=== PATIENT | female | born 1980 | race American Indian/Alaskan Native ===

== ENCOUNTER 2021-09-22 13:25 | Outpatient (CLI) | payer OTHER, SELFPAY | END 2021-09-22 13:26 | disposition home or self-care (01) | LOC: US 13:27 | PROVIDERS: Visit Provider Pediatrics Neonatal-Perinatal Medicine | DX: O09.522 Supervision of elderly multigravida, second trimester (principal); Z3A.20 20 weeks gestation of pregnancy | CPT/HCPCS: 76811 ==

== ENCOUNTER 2021-11-16 18:00 | Outpatient (CLI) | payer OTHER, SELFPAY ==
[2021-11-18 20:38] LABS: Rapid Plasma Reagin (RPR) Non Reactive (Non Reactive)
== END 2021-11-16 18:01 | disposition home or self-care (01) ==
LOC: NFLDREF 18:01
PROVIDERS: Visit Provider Physician Assistant
DX: Z34.90 Encounter for supervision of normal pregnancy, unspecified, unspecified trimester (principal)
CPT/HCPCS: 86592

== ENCOUNTER 2021-12-17 15:03 | Outpatient (CLI) | payer OTHER, SELFPAY ==
--- OUTSIDE RECORDS SUMMARY | 2021-12-17 15:06 | XMS_ITS | Encounter Summary ---
:1980 Author Organization [facility] Address [address] [facility] [place] [address] Care Team Providers Name Role Phone Bebeto Roth MD Unavailable Astrid Rios PA-C Unavailable Francisco Metz MD Primary Care Provider [phone] Reason for Visit Reason Comments Confirmation Of Encounter Details Date Type Department Care Team Description 01/08/2019 Office Visit [facility] Family Lakisha Nielsen cy test positive (Primary Dx); Medicine Clinic DO Lacy Screening for condition [address] [address] [address] [place], [place] [phone] [address] Social History Tobacco Use Types Packs/Day Years Used Date Smoking Tobacco: Never Smokeless Tobacco: Never Alcohol Use Standard Drinks/Week Comments No 0 (1 standard drink = 0.6 oz pure alcoho l) Sex Assigned at Date Recorded Not on file documented as of this encounter Last Filed Vital Signs Vital Sign Reading Time Taken Comments Blood Pressure 115/79 01/08/2019 1:52 PM BLEACH TESTER Pulse 121 01/08/2019 1:52 PM BLEACH TESTER Temperature 36.2 ??C (97.2 ??F) 01/08/2019 1:52 PM BLEACH TESTER Respiratory Rate 16 01/08/2019 1:52 PM BLEACH TESTER Oxygen Saturation 100% 01/08/2019 1:52 PM BLEACH TESTER Inhaled Oxygen Concentration - - Weight 75.6 kg (166 lb 9.6 oz) 01/08/2019 1:52 PM BLEACH TESTER Height - - Body Mass Index 29.51 04/18/2018 8:42 AM BLEACH TESTER documented in this encounter Patient Instructions Patient Lakisha Gonzalez, - 01/08/2019 1:40 PM BLEACH TESTER Here is the plan from today's visit 1. Screening for condition - HCG Qualitative Urine (UPT) ([facility]) 2. test positive Results by [facility] - CBC with Plt ([facility]) - Hemoglobin A1c ([facility]) - Vit-Fe Fumarate-FA ( MULTIVITAMIN W/IRON) 27-0.8 MG tablet; Take 1 tablet by mouth daily Dispense: 90 tablet; Refill: 3 - ondansetron (ZOFRAN) 4 MG tablet; Take 1-2 tablets (4-8 mg) by mouth every 8 hours as needed for nausea Dispense: 60 tablet; Refill: 3 - US OB <14 WKS SINGLE OR FIRST GESTATION (IN CLINIC); Future Please call or return to clinic if your symptoms don't go away. Follow up plan You'll get a call from our OB coordinator to schedule your first OB visit and ultrasound Thank you for coming to [facility] today. Lab Testing: If you had lab testing today and your results are reassuring or normal they will be mailed to you or sent through [employer] [facility] within 7 days. If the lab tests need quick action we will call you with the results. The phone number we will call with results is # [phone] (home) . If this is not the best numberplease call our clinic and change the number. Medication Refills: If you need any refills please call your pharmacy and they will contact us. If you need to slate picker your refill at a new pharmacy, please contact the new pharmacy directly. The new pharmacy will help you get your medications transferred faster. Scheduling: If you have any concerns about today's visit or wish to schedule another appointment please call ouroffice during normal business hours [phone] (8- 5:00 M-F) If a referral was made to a [facility] and you don't get a call from [facility] please call [phone]. If a Mammogram was ordered for you at [facility] call [phone] to schedule or change yourappointment. If you had an XRay/CT/Ultrasound/MRI ordered the number is [phone] to schedule or change your radiology appointment. Medical Concerns: If you have urgent medical concerns please call [phone] at any time of the day. Cyrus Nielsen DO CH TESTER documented in this encounter Progress Notes Lakisha Nielsen DO - 01/08/2019 1:40 PM CST HPI Azul Garg is a 38 year old who presents for Chief Complaint Patient presents with ??? Confirmation Of - desired. Had a positive home test. Not taking PNV Nonsmoker No EtOH No street drugs Was on minocycline for acne, last dose yesterday. 4w4d by LMP 12/07/18 - [facility]INCENT 09/12/18 No nausea, had severe nausea in previous pregnancies unable to get out of bed. Needed zofran in her last 3 pregnancies. Usually the nausea last swelling to the second trimester, but it is well-managed if she takes 1 Zofran a day. B6 and Unisom have not been helpful for her in prior pregnancies. No vaginal bleeding/spotting. No abdominal pain. Breast tenderness present. Tested borderline GDM in her last by daily glucose testing. Had been unable to tolerate the oral glucose challenge. By changing her diet, her numbers stayed ok and she did not require any medications. Has also had a history of anemia in prior pregnancies. Last delivery was in February 2017. All deliveries have been vaginal, no issues. Her deliverywas induced for premature rupture of membranes. Her last 2 deliveries have been with [facility]. Problem, Medication and Allergy Lists were reviewed and updated if needed.. Patient is an established patient of this clinic.. Review of Systems: Review of Systems Physical Exam: Vitals: 01/08/19 1352 BP: 115/79 Pulse: 121 Resp: 16 Temp: 97.2 ??F (36.2 ??C) TempSrc: Oral SpO2: 100% Weight: 75.6 kg (166 lb 9.6 oz) Body mass index is 29.51 kg/m??. Vitals were reviewed and were normal except tachycardia. Patient had just been moving boxes and running around prior to coming to clinic. Heart rate normalized to 80s while in exam with me. Physical Exam Constitutional: Appearance: Normal appearance. HENT: Head: Normocephalic and atraumatic. Cardiovascular: Rate and Rhythm: Normal rate and regular rhythm. Pulmonary: Effort: Pulmonary effort is normal. No respiratory distress. Neurological: General: No focal deficit present. Mental Status: She is alert and oriented to person, place, and time. Psychiatric: Mood and Affect: Mood normal. Behavior: Behavior normal. Results: Results from this visit Results for orders placed or performed in visit on 01/08/19 HCG Qualitative Urine (UPT) ([facility]) Status: Abnormal Result Value Ref Range HCG Qual Urine POSITIVE (A) Negative Hemoglobin A1c ([facility]) Status: None Result Value Ref Range Hemoglobin A1C 4.8 4.1 - 5.7 % Assessment and Plan Azul is a 38 yo cisgender woman currently at 4w4d by LMP 12/07/18. 1. test positive Will obtain early diabetes screening today with an A1c, and also a CBC to rule out anemia as cause of false negative. Also, counseled patient to start a vitamin, avoid tobacco alcohol and street drugs. Counseled patient to discontinue minocycline for her acne. Prescribed Zofran for when nausea develops. Patient declined Unisom or B6. Counseled to await phone call from our OB coordinator to schedule her first OB visit between 8 to 12 weeks and her dating ultrasound. - Hemoglobin A1c ([facility]) - Vit-Fe Fumarate-FA ( MULTIVITAMIN W/IRON) 27-0.8 MG tablet; Take 1 tablet by mouth daily Dispense: 90 tablet; Refill: 3 - ondansetron (ZOFRAN) 4 MG tablet; Take 1-2 tablets (4-8 mg) by mouth every 8 hours as needed for nausea Dispense: 60 tablet; Refill: 3 - US OB <14 WKS SINGLE OR FIRST GESTATION (IN CLINIC); Future 2. Screening for condition - HCG Qualitative Urine (UPT) ([facility]) - CBC with platelets differential Medications Discontinued During This Encounter Medication Reason ??? minocycline (MINOCIN/DYNACIN) 100 MG capsule ??? senna-docusate (SENOKOT-S;PERICOLACE) 8.6-50 MG per tablet ??? polyethylene glycol (MIRALAX/GLYCOLAX) Packet ??? oxyCODONE IR (ROXICODONE) 10 MG tablet ??? ondansetron (ZOFRAN-ODT) 4 MG ODT tab ??? methocarbamol (ROBAXIN) 500 MG tablet ??? HYDROcodone-acetaminophen (NORCO) 5-325 MG per tablet Options for treatment and follow-up care were reviewed with the patient. Azul Alejo Irma Garg engaged in the decision making process and verbalized understanding of the options discussed and agreed with the final plan. Cyrus Nielsen DO [facility] Scholastic Aptitude Test Grader PGY-2 CH TESTER Katalina Ching MD - 01/08/2019 1:40 PM CST Preceptor Attestation: Patient seen, evaluated and discussed with the resident. I have verified the content of the note, which accurately reflects my assessment of the patient and the plan of care. Supervising Physician: Katalina Ching MD CH TESTER documented in this encounter Plan of Treatment Not on filedocumented as of this encounter Procedures Procedure Name Priority Date/Time Associated Comments Diagnosis HCL CBC WITH Routine 01/08/2019 2:41 PM Screening for Results for this PLATELETS, DIFF BLEACH TESTER condition procedure ar e in the results section. HEMOGLOBIN A1C Routine 01/08/2019 2:34 PM test Resul ts for this ([facility]) BLEACH TESTER positive procedure are i n the results section. HCG QUALITATIVE URINE Routine 01/08/2019 1:59 PM Screening for Results for this ([facility]) BLEACH TESTER condition procedure are i n the results section. documented in this encounter Results (ABNORMAL) CBC with platelets differential (01/08/2019 2:41 PM BLEACH TESTER) [facility] Method Time Signature WBC 8.9 4.0 - 01/08/2019 [facility] 11.0 9:11 PM BLEACH TESTER [facility] 10e9/L [facility] RBC Count 4.64 3.8 - 5.2 01/08/2019 [facility] 10e12/L 9:11 PM [facility] Hemoglobin 10.9 (L) 11.7 - 01/08/2019 [facility] 15.7 g/dL 9:11 PM [facility] Hematocrit 36.2 35.0 - 01/08/2019 [facility] 47.0 % 9:11 PM [facility] MCV 78 78 - 100 01/08/2019 [facility] fl 9:11 PM [facility] MCH 23.5 (L) 26.5 - 01/08/2019 [facility] 33.0 pg 9:11 PM [facility] MCHC 30.1 (L) 31.5 - 01/08/2019 [facility] 36.5 g/dL 9:11 PM [facility] RDW 15.2 (H) 10.0 - 01/08/2019 [facility] 15.0 % 9:11 PM [facility] Platelet Count 359 150 - 450 01/08/2019 [facility] 10e9/L 9:11 PM [facility] Diff Method Automated 01/08/2019 [facility] Method 9:11 PM [facility] % Neutrophils 69.7 % 01/08/2019 [facility] 9:11 PM [facility] % Lymphocytes 18.5 % 01/08/2019 [facility] 9:11 PM [facility] % Monocytes 9.4 % 01/08/2019 [facility] 9:11 PM [facility] % Eosinophils 1.7 % 01/08/2019 [facility] 9:11 PM [facility] % Basophils 0.4 % 01/08/2019 [facility] 9:11 PM [facility] % Immature 0.3 % 01/08/2019 [facility] Granulocytes 9:11 PM [facility] Nucleated RBCs 0 0 /100 01/08/2019 [facility] 9:11 PM [facility] Absolute 6.2 1.6 - 8.3 01/08/2019 [facility] Neutrophil 10e9/L 9:11 PM [facility] Absolute 1.7 0.8 - 5.3 01/08/2019 [facility] Lymphocytes 10e9/L 9:11 PM [facility] Absolute 0.8 0.0 - 1.3 01/08/2019 [facility] Monocytes 10e9/L 9:11 PM BLEACH TESTER [facility] Absolute 0.2 0.0 - 0.7 01/08/2019 [facility] Eosinophils 10e9/L 9:11 PM BLEACH TESTER [facility] Absolute 0.0 0.0 - 0.2 01/08/2019 [facility] Basophils 10e9/L 9:11 PM [facility] Abs Immature 0.0 0 - 0.4 01/08/2019 [facility] Granulocytes 10e9/L 9:11 PM BLEACH TESTER [facility] Absolute 0.0 01/08/2019 [facility] Nucleated RBC 9:11 PM [facility] Specimen Anatomical Collection Method Collection Time Receive d Time (Source) Location / / Volume Laterality Blood specimen VENOUS BLOOD / 01/08/2019 2:41 PM 01/08 5:00 (specimen) Unknown BLEACH TESTER PM BLEACH TESTER Katalina Ching MD LAB - BLOOD ORDERABLES Performing Organization Address City/[facility]/ZIP Code Phon e Number [facility] [address] [place] [address] [facility] Hemoglobin A1c ([facility]) (01/08/2019 2:34 PM BLEACH TESTER) athologist Signature Hemoglobin A1C 4.8 4.1 - 5.7 [facility] Specimen Anatomical Collection Method Collection Time Receive d Time (Source) Location / / Volume Laterality Blood specimen VENOUS BLOOD / 01/08/2019 2:34 PM 01/08 2:35 (specimen) Unknown BLEACH TESTER PM BLEACH TESTER Katalina Ching MD LAB - LABDAQ Performing Organization Address City/[facility]/ZIP Code Phon e Number [facility] [address] [place] [phone] [facility] (ABNORMAL) HCG Qualitative Urine (UPT) ([facility]) (01/08/2019 1:59 PM BLEACH TESTER) [facility] gist Method Time Signature HCG Qual POSITIVE (A) Negative [facility] Urine [facility] LAB[facility] Specimen Anatomical Collection Method Collection Time Receive d Time (Source) Location / / Volume Laterality Urine specimen 01/08/2019 1:59 PM 019 2:00 (specimen) BLEACH TESTER PM BLEACH TESTER Katalina Ching MD LAB - LABDAQ Performing Organization Address City/State/ZIP Code Phon e Number [facility] [address] [place], [place] [address] [facility] documented in this encounter Visit Diagnoses Diagnosis test positive - Primary examination or test, positive result Screening for condition Screening for unspecified condition documented in this encounter Care Teams Supervisor Glycerin Relationship Specialty Start Date End Date Francisco Metz PCP - General Family Practice 11/14/18 04/02/20 MD Stevie Bebeto Roth MD Orthopedics 07/09/14 [facility] [address] [address] Astrid Rios PA-C Physician Edging Supervisor Physician Edging Supervisor - 07/09/14 Surgical documented as of this encounter
--- OUTSIDE RECORDS SUMMARY | 2021-12-17 15:06 | XMS_ITS | Encounter Summary ---
:1980 Author Organization [facility] Address [address] [facility] [place] [address] Care Team Providers Name Role Phone Bebeto Roth MD Unavailable Astrid Rios PA-C Unavailable Francisco Metz MD Primary Care Provider [phone] Reason for Visit Reason Onset Date Comments Call To Schedule Appointment 01/09/2019 NOB appt re quest Encounter Details Date Type Department Care Team Description 01/09/2019 Telephone [facility] [place], Call To Schedule Medicine Clinic KENNY Patterson Appointment (NOB appt [address] [place], request ) [address] [place] [id number] Social History Tobacco Use Types Packs/Day Years Used Date Smoking Tobacco: Never Smokeless Tobacco: Never Alcohol Use Standard Drinks/Week Comments No 0 (1 standard drink = 0.6 oz pure alcoho l) Sex Assigned at Date Recorded Not on file documented as of this encounter Miscellaneous Notes Telephone Encounter - Lisa Ventura - 01/18/2019 3:55 PM CST Inform patient: You will see two providers throughout your care. One of them may be a male,will that be a problem for you? Yes Additional patient comments: female providers only Dating US scheduled: 02/20/19 at 8:40am NOB scheduled 02/20/19 at 9:20am with Dr Nielsen (this will be their primary OB provider). TECHNICAL ARCHITECT Telephone Encounter - Yesenia Flowers RN - 01/09/2019 1:37 PM CST Confirmation of visit: 01/08/19 LMP: 12/07/18 Gestational Age: 4w5d Estimated Date of Delivery: 09/13/19 Dating US has been ordered. Please call patient to schedule US week of 02/04/19 (8 weeks gestation). NOB may be scheduled after US is completed. May be scheduled same day, but US must be completed first. When calling to schedule NOB, please give scheduling preference to the following providers. If ok with male provider, please offer only male provider appointments (unless no availability for >2 weeks) NOBs should NOT be scheduled or rescheduled with Dr Null Male: 1. SMITHA! 2. Isaías Female: 1. Gia 2. Other Notes: Please document call and close encounter. Yesneia Flowers RN TECHNICAL ARCHITECT documented in this encounter Plan of Treatment Not on filedocumented as of this encounter Visit Diagnoses Not on filedocumented in this encounter Care Teams Fingernail Sculpturer Relationship Specialty Start Date End Date Francisco Metz PCP - General Family Practice 11/14/18 04/02/20 MD Stevie Bebeto Roth MD Orthopedics 07/09/14 [facility] [address] [place] [address] Astrid Rios PA-C Physician Call Center Director Physician Call Center Director - 07/09/14 Surgical documented as of this encounter
--- OUTSIDE RECORDS SUMMARY | 2021-12-17 15:06 | XMS_ITS | Encounter Summary ---
:1980 Author Organization [facility] Address [address] [place] [address] Care Team Providers Name Role Phone Bebeto Roth MD Unavailable Astrid Rios PA-C Unavailable Francisco Metz MD Primary Care Provider [phone] Encounter Details Date Type Department Care Team Description 01/08/2019 Travel Social History Tobacco Use Types Packs/Day Years Used Date Smoking Tobacco: Never Smokeless Tobacco: Never Alcohol Use Standard Drinks/Week Comments No 0 (1 standard drink = 0.6 oz pure alcoho l) Sex Assigned at Date Recorded Not on file documented as of this encounter Plan of Treatment Not on filedocumented as of this encounter Visit Diagnoses Not on filedocumented in this encounter Care Teams Physical Education Teacher Relationship Specialty Start Date End Date Francisco Metz PCP - General Family Practice 11/14/18 04/02/20 MD Stevie Bebeto Roth MD Orthopedics 07/09/[address] [place], [place] [id number] Astrid Rios PA-C Physician Chemical Pathologist Physician Chemical Pathologist - 07/09/14 Surgical documented as of this encounter
--- OUTSIDE RECORDS SUMMARY | 2021-12-17 15:06 | XMS_ITS | Encounter Summary ---
:1980 Author Organization [facility] Address [facility] [place] [address] Care Team Providers Name Role Phone Bebeto Roth MD Unavailable Astrid Rios PA-C Unavailable Keri Elias MD Primary Care Provider Unavailable Reason for Visit Diagnostic Imaging XR - Closed Specialty Diagnoses / Procedures Referred By Contact Refer red To Contact Diagnoses Scoliosis Kyphosis (acquired) (postural) Bebeto Roth MD Procedures XR Six Foot Standing Extremities [address] [place], [place] [address] Referral ID Status Reason Start Date Expiration Date Visits Requ ested Visits Authorized [id number] Closed 01/10/2018 01/10/2019 1 1 Encounter Details Date Type Department Care Team Description 01/17/2018 Radiant Appointment [facility] Bebeto Roth Scol iosis; Center Xray MD Devan Kyphosis (acquired) (postural) [address] [facility] [address] [facility] [address] [place] [address] [phone] Social History Tobacco Use Types Packs/Day Years Used Date Smoking Tobacco: Never Smokeless Tobacco: Never Alcohol Use Standard Drinks/Week Comments No 0 (1 standard drink = 0.6 oz pure alcoho l) Sex Assigned at Date Recorded Not on file documented as of this encounter Plan of Treatment Not on filedocumented as of this encounter Procedures Procedure Name Priority Date/Time Associated Comments Diagnosis XR SIX FOOT STANDING Routine 01/17/2018 8:40 AM Lin s Results for this EXTREMITIES NATURAL RESOURCES SPECIALIST Kyphosis (acquired) procedur e are in (postural) the results section. documented in this encounter Results XR Six Foot Standing Extremities (01/17/2018 8:40 AM NATURAL RESOURCES SPECIALIST) Anatomical Region Laterality Modality Lower Extremity Computed Radiography Specimen (Source) Anatomical Location Collection Method / Collectio n Time Received Time / Laterality Volume Impressions 01/17/2018 2:07 PM NATURAL RESOURCES SPECIALIST Impression: 1. Fusion instrumentation from T4 throug h L3 without evidence of hardware complication. 2. Mild convex right curvature of the th oracolumbar/lumbar spine with apex at T12. 3. No substantial global coronal imbalan ce. 4. Normal sagittal vertical axis. MADALYN ZARAGOZA MD Narrative 01/17/2018 2:07 PM NATURAL RESOURCES SPECIALIST Exam: XR SPINE COMPLETE SCOLIOSIS 2 VW, XR SIX FOOT STANDING EXTREMITIES, 01/17/2018 8:41 AM Indication: ; Scoliosis; Kyphosis (acqui red) (postural) Techniques: AP and lateral EOS composite images of full body images were submitted for interpretation. Comparison: 12/13/2017 Findings: 12 rib bearing vertebral bodies and 5 nina mbar type vertebral bodies are identified. Posterior fusion instrumentation extends from T4 through L3. No evidence of hardware complication. Coronal Deformity: There is a mild ??convexed right curvatu re of the thoracolumbar/lumbar spine with apex at T12. No substantial global coronal imbalance. Sagittal Vertical [place] (A vertical line drawn from the center of C7 (dragan line) to the posterosuperior aspe ct of the S1 on sagittal plane): ??less than 4 cm Weight bearing axis: (Defined as a line drawn from the center of the femoral head to the mid aspect of the ti bial plafond). ?Right: Weight bearing axis crosses through the medial tibial spine. ? Left: Weight bearing axis crosses between tibial spines. Leg length: ??(Measured from the top of the femoral head to the center of tibial plafond. ??It is assumed joint s are in similar degrees of extension bilaterally. ??Significant dif ference is defined when discrepancy is greater than 1.5 cm). ?No significant ??leg length dis crepancy. Additional Findings: No acute osseous abnormality. ??There is a nonobstructive bowel gas pattern. Procedure Note Madalyn Zaragoza MD - 01/17/2018Format ting of this note might be different from the original. Exam: XR SPINE COMPLETE SCOLIOSIS 2 VW, XR SIX FOOT STANDING EXTREMITIES, 01/17/2018 8:41 AM Indication: ; Scoliosis; Kyphosis (acqui red) (postural) Techniques: AP and lateral EOS composite images of full body images were submitted for interpretation. Comparison: 12/13/2017 Findings: 12 rib bearing vertebral bodies and 5 nina mbar type vertebral bodies are identified. Posterior fusion instrumentation extends from T4 through L3. No evidence of hardware complication. Coronal Deformity: There is a mild convexed right curvature of the thoracolumbar/lumbar spine with apex at T12. No substantial global coronal imbalance. Sagittal Vertical [place] (A vertical line drawn from the center of C7 (dragan line) to the posterosuperior aspe ct of the S1 on sagittal plane): less than 4 cm Weight bearing axis: (Defined as a line drawn from the center of the femoral head to the mid aspect of the ti bial plafond). Right: Weight bearing axis crosses thro ugh the medial tibial spine. Left: Weight bearing axis crosses betwe en tibial spines. Leg length: (Measured from the top of th e femoral head to the center of tibial plafond. It is assumed joints are in similar degrees of extension bilaterally. Significant diffe rence is defined when discrepancy is greater than 1.5 cm). No significant leg length discrepancy. Additional Findings: No acute osseous abnormality. There is a nonobstructive bowel gas pattern. Impression: 1. Fusion instrumentation from T4 throug h L3 without evidence of hardware complication. 2. Mild convex right curvature of the th oracolumbar/lumbar spine with apex at T12. 3. No substantial global coronal imbalan ce. 4. Normal sagittal vertical axis. MADALYN ZARAGOZA MD Bebeto Roht MD IMG DIAGNOSTIC IMAGING ORDER TAYLOR documented in this encounter Visit Diagnoses Diagnosis Scoliosis Scoliosis (and kyphoscoliosis), idiopath ic Kyphosis (acquired) (postural) documented in this encounter Care Teams Guidance Adviser Relationship Specialty Start Date End Date Keri Elias PCP - General Family Practice 03/12/15 9 MD Ira Glez David Wayne, MD Orthopedics 5/27/[address] [place] [address] Astrid Rios PA-C Physician Hand Alterations Seamstress Physician Hand Alterations Seamstress - 07/09/14 Surgical documented as of this encounter
--- OUTSIDE RECORDS SUMMARY | 2021-12-17 15:06 | XMS_ITS | Encounter Summary ---
:1980 Author Organization [place] Address [address] [facility] [address] Care Team Providers Name Role Phone Bebeto Roth MD Unavailable Astrid Rios PA-C Unavailable Francisco Metz MD Primary Care Provider [phone] Francisco Metz MD Unavailable [phone] Reason for Visit Reason Onset Date Comments Referral 10/03/2019 [facility] Encounter Details Date Type Department Care Team Description 10/03/2019 Telephone [facility] Francisco Metz Referral ( [facility] MD [facility]) [address], [address] [place] [address] [phone] (Wo rk) Social History Tobacco Use Types Packs/Day Years Used Date Smoking Tobacco: Never Smokeless Tobacco: Never Alcohol Use Standard Drinks/Week Comments No 0 (1 standard drink = 0.6 oz pure alcoho l) Sex Assigned at Date Recorded Not on file documented as of this encounter Miscellaneous Notes Telephone Encounter - Marli Gonzales - 10/09/2019 3:20 PM CDT 3:20p.m Marium returned my call. Stated that we as patient PCC would need to ok authorization, reference # [id number]. This authorization that was entered on 09/19/19 by Kaylynn Hoffman has been timed out. Last edited on 10/04/19. I attempted to create a new referral and was informed that I do not have security to create a referral for this member. [place] is not listed with [facility] as patient PCC. Contacted Marium to inform her that patient PCC will need to enter referral/auth online with [facility]. Marli oGnzales Respooler Telephone Encounter - Marli Gonzales - 10/09/2019 9:56 AM CDT 10/07/19 Attempted to reach Marium at [place], Left message on voicemail. 10/09/19 Left message on Marium voicemail. Marli Gonzales Respooler Telephone Encounter - Lisa Ventura - 10/03/2019 10:44 AM CDT [facility] Family Medicine phone call message - order or referral request from patient: Order or referral being requested: Referral to: [facility] Location: [place], [place] Additional Details: Marium calling from [facility] and [facility] to advise that [facility] denied their claim for patient's visit with them on 08/14/19. Marium advised that per [facility], an authorization request was sent to [facility] (by [facility]) authorizing the patient to receive care in [place]. Authorization request # [id number]. Referral only -Specialty see above Location see above OK to leave a message on voice mail? Yes Primary language: Belarusian Scale Shooter needed? No Call taken on October 03, 2019 at 10:45 AM by Lisa Ventura Order request route to [facility] Referrals Route to [facility] ([facility]) [facility]PERATOR [facility] documented in this encounter Plan of Treatment Not on filedocumented as of this encounter Visit Diagnoses Not on filedocumented in this encounter Care Teams Counter Supply Worker Relationship Specialty Start Date End Date Francisco Metz PCP - General Family Practice 11/14/18 04/02/20 MD Stevie Bebeto Roth MD Orthopedics 07/09/[address] [place] [address] Astrid Rios PA-C Physician Sales And In Home Delivery Specialist Physician Sales And In Home Delivery Specialist - 07/09/14 Surgical Francisco Metz Assigned PCP 07/04/19 02/01/20 MD Stevie [address] [place] [address] documented as of this encounter
--- OUTSIDE RECORDS SUMMARY | 2021-12-17 15:06 | XMS_ITS | Encounter Summary ---
:1980 Author Organization [place] Address [address] [facility] [place] [address] Care Team Providers Name Role Phone Bebeto Roth MD Unavailable Astrid Rios PA-C Unavailable Francisco Metz MD Primary Care Provider Encounter Details Date Type Department Care Team Description 11/14/2018 Travel Social History Tobacco Use Types Packs/Day [...] on filedocumented in this encounter Care Teams Night Shift Relationship Specialty Start Date End Date Francisco Metz PCP - General Family Practice 11/14/18 04/02/20 MD Stevie Bebeto Roth MD Orthopedics 07/09/[address] [place], [place] [address] Astrid Rios PA-C Physician Radiation / Chemistry Technician Physician Radiation / Chemistry Technician - 07/09/14 Surgical documented as of this encounter
--- OUTSIDE RECORDS SUMMARY | 2021-12-17 15:06 | XMS_ITS | Encounter Summary ---
:1980 Author Organization [place] Address [facility] [place] [address] Care Team Providers Name Role Phone Bebeto Roth MD Unavailable Astrid Rios PA-C Unavailable Keri Elias MD Primary Care Provider Unavailable Reason for Visit Reason Comments RECHECK DOS 10/23/17 extrention of jf mcintosh, follow up scoliosis Encounter Details Date Type Department Care Team Description 04/18/2018 Office Visit [facility] Orthopaedic Bebeto Roth [facility] ent idiopathic scoliosis of thoracolumbar region (Primary Dx); Clinic MD Devan History of spinal fusion [address] [place] [address] [address] [place] [address] [phone] Social History Tobacco Use Types Packs/Day Years Used Date Smoking Tobacco: Never Smokeless Tobacco: Never Alcohol Use Standard Drinks/Week Comments No 0 (1 standard drink = 0.6 oz pure alcoho l) Sex Assigned at Date Recorded Not on file documented as of this encounter Last Filed Vital Signs Vital Sign Reading Time Taken Comments Blood Pressure - - Pulse - - Temperature - - Respiratory Rate - - Oxygen Saturation - - Inhaled Oxygen Concentration - - Weight 68.9 kg (152 lb) 04/18/2018 8:42 AM KOSHER DIETARY SERVICE SUPERVISOR Height 160 cm (5' 3) 04/18/2018 8:42 AM KOSHER DIETARY SERVICE SUPERVISOR Body Mass Index 26.93 04/18/2018 8:42 AM KOSHER DIETARY SERVICE SUPERVISOR documented in this encounter Progress Notes Bebeto Roth MD - 04/18/2018 8:45 AM CST [facility] Orthopedics Bebeto Roth MD 04/18/2018 Name: Azul Garg Age: [age] year old : 1980 Referring provider: Referred Self Chief Complaint: RECHECK (DOS 10/23/17 extrention of fusion, follow up scoliosis ) Date of Surgery: 10/23/2017 Procedure:?? 1. Posterior spinal fusion thoracic 4 to thoracic 10 2. Segmental spinal instrumentation T4-T9 3. Reinsertion spinal instrumentation T10 4. Rivera-Khan osteotomies T6-7 through T9-10 5. Image guided surgery History of Present Illness: Azul Garg is a 37 year old female 6 months status-post the above mentioned procedures whopresents for postoperative evaluation following correction of proximal junctional kyphosis. At the patient's last evaluation with me on 01/17/18, she was still taking Vicodin and muscle relaxer as needed for her 2/10 pain. Plan was for continued weaning off her narcotic medications. Today, the patient returns for 6 month recheck and films. Overall she has been doing quite well and minimal pain. She still has some intrascapular numbness along her incision. She does have some tenderness and pain at the cephalad most aspect of her instrumentation at her trapezius muscles and at the base of her neck. She also notes some occasional clicking in her back but this is without pain. She is otherwise pleased with her progression just wants reassurance that her x-rays are unchanged. She also has questions regarding the potential of becoming in the near future and if that would affect her recovery in any way Oswestry (KYLEE) Questionnaire OSWESTRY DISABILITY INDEX 04/17/2018 Count 10 Sum 6 Oswestry Score (%) 12 Some recent data might be hidden Visual Analog Pain Scale Back Pain Scale 0-10: 1.5 Right leg pain: 0 Left leg pain: 0 PROMIS-10 Scores Global Mental Health Score: (P) 15 Global Physical Health Score: (P) 13 PROMIS TOTAL - SUBSCORES: (P) 28 Physical Examination: Ht 1.6 m (5' 3) Wt 68.9 kg (152 lb) BMI 26.93 kg/m?? Focused examination of the patient's spine demonstrates incision at midline that is well-healed and intact without any overlying skin changes. There is no tenderness to palpation along spinous processes. There is notable on numbness to light touch between the scapula a at the thoracic spine. She has some tenderness to palpation particularly at the left trapezius just cephalad to where her instrumentation ends. Sensorimotor examination of her bilateral lower extremities otherwise intact and benign from L2-S1 nerve distributions without any asymmetry or appreciated deficit Radiographs: XR Six Foot Standing Extremities 04/18/18: XR Spine Complete Scoliosis 2 views 04/18/18: When compared to prior x-rays from last visit and immediately postoperatively hardware remains stable and intact without any signs of loosening or shift. Overall spinal alignment is also consistent with prior imaging Assessment: 37 year old female with lumbar fusion now 6 months status post extension of the thoracic spine for proximal junctional kyphosis in 10/23/2017. Doing well Plan: -RTC 6 months (1 year post op) -OK for as she wishes; if , then will return following the when she is able to have radiation/XR -RTC with EOS full spine upright XR -Recommend massage therapy or scapulothoracic PT to aid in muscle strengthening and relief of pain Seen and discussed with Dr. Ira Sinclair MD 04/18/2018 Orthopaedic Surgery Resident, PGY-4 Pager: I saw and evaluated the patient and developed the plan. Bebeto Roth MD ER DIETARY SERVICE SUPERVISOR documented in this encounter Nursing Notes Quincy Rosas, DODIE - 04/18/2018 8:45 AM CST Reason For Visit: Chief Complaint Patient presents with ??? RECHECK DOS 10/23/17 extrention of fusion, follow up scoliosis Primary MD: Keri Elias MD: self [place] Chalker? No Date of surgery: 10/23/17 Type of surgery: Dr. Roth Smoker: No Request smoking cessation information: No Ht 1.6 m (5' 3) Wt 68.9 kg (152 lb) BMI 26.93 kg/m?? Pain Assessment Patient Currently in Pain: Yes 0-10 Pain Scale: 2 Oswestry (KYLEE) Questionnaire OSWESTRY DISABILITY INDEX 04/17/2018 Count 10 Sum 6 Oswestry Score (%) 12 Some recent data might be hidden Neck Disability Index (NDI) Questionnaire No flowsheet data found. Visual Analog Pain Scale Back Pain Scale 0-10: 1.5 Right leg pain: 0 Left leg pain: 0 Promis 10 Assessment PROMIS 10 04/17/2018 In general, would you say your health is: Fair In general, would you say your quality of life is: Good In general, how would you rate your physical health? Fair In general, how would you rate your mental health, including your mood and your ability to think? Good In general, how would you rate your satisfaction with your social activities and relationships? Verygood In general, please rate how well you carry out your usual social activities and roles Fair To what extent are you able to carry out your everyday physical activities such as walking, climbingstairs, carrying groceries, or moving a chair? Mostly How often have you been bothered by emotional problems such as feeling anxious, depressed or irritable? Never How would you rate your fatigue on average? Mild How would you rate your pain on average? 0 = No Pain to 10 = Worst Imaginable Pain 4 In general, would you say your health is: 2 In general, would you say your quality of life is: 3 In general, how would you rate your physical health? 2 In general, how would you rate your mental health, including your mood and your ability to think? 3 In general, how would you rate your satisfaction with your social activities and relationships? 4 In general, please rate how well you carry out your usual social activities and roles. (This includes activities at home, at work and in your community, and responsibilities as a parent, child, spouse,employee, friend, etc.) 2 To what extent are you able to carry out your everyday physical activities such as walking, climbingstairs, carrying groceries, or moving a chair? 4 In the past 7 days, how often have you been bothered by emotional problems such as feeling anxious, depressed, or irritable? 1 In the past 7 days, how would you rate your fatigue on average? 2 In the past 7 days, how would you rate your pain on average, where 0 means no pain, and 10 means worst imaginable pain? 4 Global Mental Health Score 15 Global Physical Health Score 13 PROMIS TOTAL - SUBSCORES 28 Some recent data might be hidden Quincy Rosas ATC ER DIETARY SERVICE SUPERVISOR documented in this encounter Plan of Treatment Not on filedocumented as of this encounter Visit Diagnoses Diagnosis Adolescent idiopathic scoliosis of thora columbar region - Primary Scoliosis (and kyphoscoliosis), idiopath ic History of spinal fusion Arthrodesis status documented in this encounter Care Teams Pharmacy Services Representative Relationship Specialty Start Date End Date Keri Elias PCP - General Family Practice 03/12/15 9 MD Ira Glez David [place], MD Orthopedics 07/09/[address] [place], [place] [id number] [place] [address] Astrid Rios PA-C Physician Dipper And Baker Physician Dipper And Baker - 07/09/14 Surgical documented as of this encounter
--- OUTSIDE RECORDS SUMMARY | 2021-12-17 15:06 | XMS_ITS | Encounter Summary ---
:1980 Author Organization [place] Address [address] [facility] [address] Care Team Providers Name Role Phone Bebeto Roth MD Unavailable Astrid Rios PA-C Unavailable Keri Elias MD Primary Care Provider Unavailable Reason for Visit Diagnostic Imaging XR - Closed Specialty Diagnoses / Procedures Referred By Contact Refer red To Contact Diagnoses S/P spinal fusion Bebeto Roth MD Procedures XR Spine Complete 2 Views [address] [place], [place] [address] Referral ID Status Reason Start Date Expiration Date Visits Requ ested Visits Authorized [id number] Closed 11/06/2017 11/06/2018 1 1 Encounter Details Date Type Department Care Team Description 12/13/2017 Radiant Appointment [facility] Imaging Bebeto Roth S/P spinal fusion Center Una Hartman MD [address] [facility] [address] [place] [address] [phone] Social History Tobacco Use Types Packs/Day Years Used Date Smoking Tobacco: Never Smokeless Tobacco: Never Alcohol Use Standard Drinks/Week Comments No 0 (1 standard drink = 0.6 oz pure alcoho l) Sex Assigned at Date Recorded Not on file documented as of this encounter Plan of Treatment Not on filedocumented as of this encounter Procedures Procedure Name Priority Date/Time Associated Diagnosis Comme nts XR SPINE COMPLETE Routine 12/13/2017 2:34 PM S/P spinal fusion Results for this SCOLIOSIS 2 VIEWS CDT procedure are in the results section. documented in this encounter Results XR Spine Complete 2 Views (12/13/2017 2:34 PM CDT) Anatomical Region Laterality Modality Spine Computed Radiography Specimen (Source) Anatomical Location Collection Method / Collectio n Time Received Time / Laterality Volume Impressions 12/13/2017 5:05 PM CDT Impression: 1. No acute osseous abnormality. 2. Fusion instrumentation from T4 throug h L3 without evidence of hardware complication. 3. Mild convex right curvature of the th oracolumbar/lumbar spine with apex at T11. 4. No substantial global coronal or sagi ttal imbalance. MADALYN ZARAGOZA MD Narrative 12/13/2017 5:05 PM CDT Exam: XR SIX FOOT STANDING EXTREMITIES, XR SPINE COMPLETE SCOLIOSIS 2 VW, 12/13/2017 2:34 PM Indication: ; S/P spinal fusion Techniques: AP and lateral EOS composite images of full body images were submitted for interpretation. Comparison: 10/28/2007, 06/29/2017 Findings: 12 rib bearing vertebral bodies and 5 nina mbar type vertebral bodies are identified. Posterior fusion instrumentation extendi ng from T4 through L3. No evidence of hardware complication. Coronal Deformity: There is a mild ??convexed right curvatu re of the thoracolumbar/lumbar spine with apex at T11. No substantial global coronal imbalance. Sagittal Vertical [place] (A vertical line drawn from the center of C7 (dragan line) to the posterosuperior aspe ct of the S1 on sagittal plane): ??less than 4 cm Weight bearing axis: (Defined as a line drawn from the center of the femoral head to the mid aspect of the ti bial plafond). ?Right: Weight bearing axis crosses between tibial spines. ? Left: Weight bearing axis crosses between tibial spines. Leg length: ??(Measured from the top of the femoral head to the center of tibial plafond. ??It is assumed joint s are in similar degrees of extension bilaterally. ??Significant dif ference is defined when discrepancy is greater than 1.5 cm). ?No significant ??leg length dis crepancy. Additional Findings: No acute osseous abnormality. Unchanged elevation of left hemidiaphragm. There is a nonobstructive bowel gas pattern. Procedure Note Jus, Madalyn J, MD - 12/13/2017Format ting of this note might be different from the original. Exam: XR SIX FOOT STANDING EXTREMITIES, XR SPINE COMPLETE SCOLIOSIS 2 VW, 12/13/2017 2:34 PM Indication: ; S/P spinal fusion Techniques: AP and lateral EOS composite images of full body images were submitted for interpretation. Comparison: 10/28/2007, 06/29/2017 Findings: 12 rib bearing vertebral bodies and 5 nina mbar type vertebral bodies are identified. Posterior fusion instrumentation extendi ng from T4 through L3. No evidence of hardware complication. Coronal Deformity: There is a mild convexed right curvature of the thoracolumbar/lumbar spine with apex at T11. No substantial global coronal imbalance. Sagittal Vertical [place] (A vertical line drawn from the center of C7 (dragan line) to the posterosuperior aspe ct of the S1 on sagittal plane): less than 4 cm Weight bearing axis: (Defined as a line drawn from the center of the femoral head to the mid aspect of the ti bial plafond). Right: Weight bearing axis crosses betw een tibial spines. Left: Weight bearing axis crosses betwe en tibial spines. Leg length: (Measured from the top of th e femoral head to the center of tibial plafond. It is assumed joints are in similar degrees of extension bilaterally. Significant diffe rence is defined when discrepancy is greater than 1.5 cm). No significant leg length discrepancy. Additional Findings: No acute osseous abnormality. Unchanged elevation of left hemidiaphragm. There is a nonobstructive bowel gas pattern. Impression: 1. No acute osseous abnormality. 2. Fusion instrumentation from T4 throug h L3 without evidence of hardware complication. 3. Mild convex right curvature of the th oracolumbar/lumbar spine with apex at T11. 4. No substantial global coronal or sagi ttal imbalance. MADALYN ZARAGOZA MD Bebeto Roth MD IMG DIAGNOSTIC IMAGING ORDER TAYLOR documented in this encounter Visit Diagnoses Diagnosis S/P spinal fusion Arthrodesis status documented in this encounter Care Teams Strategy Execution Consultant Relationship Specialty Start Date End Date Keri Elias PCP - General Family Practice 03/12/15 9 MD Ira Glez David [place], MD Orthopedics 07/09/14 [address] [place] [address] Astrid Rios PA-C Physician Winder Helper Physician Winder Helper - 07/09/14 Surgical documented as of this encounter
--- OUTSIDE RECORDS SUMMARY | 2021-12-17 15:06 | XMS_ITS | Encounter Summary ---
:1980 Author Organization [place] Address [address] [facility] [place] [address] Care Team Providers Name Role Phone Bebeto Roth MD Unavailable Astrid Rios PA-C Unavailable Keri Elias MD Primary Care Provider Unavailable Reason for Visit Diagnostic Imaging XR - Closed Specialty Diagnoses / Procedures Referred By Contact Refer red To Contact Diagnoses S/P spinal fusion Bebeto Roth MD Procedures XR Six Foot Standing Extremities [address] [place], [place] [address] Referral ID Status Reason Start Date Expiration Date Visits Requ ested Visits Authorized [id number] Closed 11/06/2017 11/06/2018 1 1 Encounter Details Date Type Department Care Team Description 12/13/2017 Radiant Appointment [facility] Imaging Bebeto Roth S/P spinal fusion Center Una Hartman MD 9 [facility] [address] [place] [address] [phone] Social History Tobacco Use Types Packs/Day Years [...] Comments Diagnosis XR SIX FOOT STANDING Routine 12/13/2017 2:34 PM S/P spinal fus ion Results for this EXTREMITIES CDT procedure are i n the results section. documented in this encounter Results XR Six Foot Standing Extremities (12/13/2017 2:34 PM CDT) Anatomical Region Laterality Modality Lower Extremity Computed [...] No substantial global coronal imbalance. Sagittal Vertical [place] (A vertical line drawn from the center [...] a nonobstructive bowel gas pattern. Procedure Note Butler, Madalyn J, MD - 12/13/2017Format ting of [...] No substantial global coronal imbalance. Sagittal Vertical [place] (A vertical line drawn from the center [...] status documented in this encounter Care Teams Search Specialist Relationship Specialty Start Date End Date Keri Elias PCP - General Family Practice 03/12/15 9 MD Ira Glez David [place], MD Orthopedics 07/09/14 [address] [place] [address] Astrid Rios PA-C Physician Sheetmetal Trades Worker Physician Sheetmetal Trades Worker - 07/09/14 Surgical documented as of this encounter
--- OUTSIDE RECORDS SUMMARY | 2021-12-17 15:06 | XMS_ITS | Encounter Summary ---
:1980 Author Organization [place] Address [address] [facility] [place] [address] Care Team Providers Name Role Phone Bebeto Roth MD Unavailable Astrid Rios PA-C Unavailable Kenton Katz MD Unavailable Unavailable Karen Veliz DO Primary Care Provider Encounter Details Date Type Department Care Team Description 07/11/2020 Records - [facility] CONVERSION Provider, Histor ical Social History Tobacco Use Types Packs/Day Years Used Date Smoking Tobacco: Never Smokeless Tobacco: Never Alcohol Use Standard Drinks/Week Comments No 0 (1 standard drink = 0.6 oz pure alcoho l) Sex Assigned at Date Recorded Not on file documented as of this encounter Plan of Treatment Not on filedocumented as of this encounter Procedures Procedure Name Priority Date/Time Associated Diagnosis Comme nts US OB > 14 WEEKS Routine 09/19/2004 12:00 AM Resu lts for this CDT procedure are i n the results section. documented in this encounter Results US OB > 14 Weeks (09/19/2004 12:00 AM CDT) Anatomical Region Laterality Modality Abdomen/Pelvis Other Specimen (Source) Anatomical Location Collection Method / Collectio n Time Received Time / Laterality Volume Narrative 09/19/2004 12:00 AM CDT See Historical Hospital Medical Record f or documentation Procedure Note Provider, Historical - 07/11/2020Formatt ing of this note might be different from the original. See Historical Hospital Medical Record f or documentation Historical Provider IMG US ORDERABLES documented in this encounter Visit Diagnoses Not on filedocumented in this encounter Care Teams Dado Operator Relationship Specialty Start Date End Date Karen Veliz DO PCP - General Family Medicine 04/03/[address] [place] [address] Bebeto Roth MD Orthopedics 07/09/[address] [place] [address] Astrid Rios PA-C Physician Merchandise Supervisor Physician Merchandise Supervisor - 07/09/14 Surgical Kenton Katz Assigned PCP 02/02/20 08/27/20 MD Feliberto NO INFO AVAILABLE documented as of this encounter
--- OUTSIDE RECORDS SUMMARY | 2021-12-17 15:06 | XMS_ITS | Encounter Summary ---
:1980 Author Organization [place] Address [address] [facility] [place] [address] Care Team Providers Name Role Phone Bebeto Roth MD Unavailable Astrid Rios PA-C Unavailable Francisco Metz MD Primary Care Provider Encounter Details Date Type Department Care Team Description 02/18/2019 Travel Social History Tobacco Use Types Packs/Day [...] on filedocumented in this encounter Care Teams Signal Mechanic Relationship Specialty Start Date End Date Francisco Metz PCP - General Family Practice 11/14/18 04/02/20 MD Stevie Bebeto Roth MD Orthopedics 07/09/[address] [place], [place] [address] Astrid Rios PA-C Physician Review Assistant Physician Review Assistant - 07/09/14 Surgical documented as of this encounter
--- OUTSIDE RECORDS SUMMARY | 2021-12-17 15:06 | XMS_ITS | Encounter Summary ---
:1980 Author Organization [place] Address [address] [facility] [place] [address] Care Team Providers Name Role Phone Bebeto Roth MD Unavailable Astrid Rios PA-C Unavailable Kenton Katz MD Unavailable Unavailable Karen Veliz DO Primary Care Provider Encounter Details Date Type Department Care Team Description 07/11/2020 Records - [facility] CONVERSION Provider, Histor ical Social History Tobacco [...] Priority Date/Time Associated Diagnosis Comme nts XR CHEST 2 VIEWS Routine 08/28/2005 12:00 AM Resu lts for this CDT procedure are i n the results section. documented in this encounter Results XR Chest 2 Views (08/28/2005 12:00 AM CDT) Anatomical Region Laterality Modality Chest Digital Radiography Specimen (Source) Anatomical Location Collection Method / Collectio n Time Received Time / Laterality Volume Narrative 08/28/2005 12:00 AM CDT See Historical Hospital Medical Record f or documentation Procedure Note Provider, Historical - 07/11/2020Formatt ing of this note might be different from the original. See Historical Hospital Medical Record f or documentation Historical Provider IMG DIAGNOSTIC IMAGING ORDER TAYLOR documented in this encounter Visit Diagnoses Not on filedocumented in this encounter Care Teams Lung Puller Relationship Specialty Start Date End Date Karen Veliz DO PCP - General Family Medicine 04/03/[address] [place] [address] Bebeto Roth MD Orthopedics 07/09/[address] [place] [address] Astrid Rios PA-C Physician Manager Of Security Physician Manager Of Security - 07/09/14 Surgical Kenton Katz Assigned PCP 02/02/20 08/27/20 MD Feliberto NO INFO AVAILABLE documented as of this encounter
--- OUTSIDE RECORDS SUMMARY | 2021-12-17 15:06 | XMS_ITS | Encounter Summary ---
:1980 Author Organization [place] Address [address] [facility] [place] [address] Care Team Providers Name Role Phone Bebeto Roth MD Unavailable Astrid Rios PA-C Unavailable Keri Elias MD Primary Care Provider Unavailable Reason for Visit Diagnostic Imaging XR - Closed Specialty Diagnoses / Procedures Referred By Contact Refer red To Contact Diagnoses Scoliosis Bebeto Roth MD Procedures XR Spine Complete Scoliosis 2 Views [address] [place], [place] [address] Referral ID Status Reason Start Date Expiration Date Visits Requ ested Visits Authorized [id number] Closed 04/17/2018 04/17/2019 1 1 Encounter Details Date Type Department Care Team Description 04/18/2018 Ancillary Procedure [facility] Chan Roth MD [facility] [address] [place] [id number] Social History Tobacco Use Types Packs/Day Years [...] Diagnosis Comme nts XR SPINE COMPLETE Routine 04/18/2018 9:23 AM Scoliosis Resu lts for this SCOLIOSIS 2 VIEWS MARKETING CAMPAIGN ANALYST procedure are in the results section. documented in this encounter Results XR Spine Complete Scoliosis 2 Views (04/18/2018 9:23 AM MARKETING CAMPAIGN ANALYST) Anatomical Region Laterality Modality Spine Computed Radiography Specimen (Source) Anatomical Location Collection Method / Collectio n Time Received Time / Laterality Volume Impressions 04/18/2018 3:19 PM MARKETING CAMPAIGN ANALYST Impression: 1. Fusion hardware from T4 through L3 wi thout evidence of hardware complication. 2. Mild convex right curvature of the th oracolumbar/lumbar spine with apex at T12. 3. No substantial global coronal imbalan ce. 4. Normal sagittal vertical axis. MADALYN ZARAGOZA MD Narrative 04/18/2018 3:19 PM MARKETING CAMPAIGN ANALYST Exam: XR SIX FOOT STANDING EXTREMITIES, XR SPINE COMPLETE SCOLIOSIS 2 VW, 04/18/2018 9:23 AM Indication: Scoliosis Techniques: AP and lateral EOS composite images of full body images were submitted for interpretation. Comparison: 01/17/2018 Findings: 12 rib bearing vertebral bodies and 5 nina mbar type vertebral bodies are identified. Posterior fusion instrumentation extends from T4 through L3. No evidence of hardware complication. Nonspecific straightening of the normal cervical lordosis. No evidence of substantial degenerative change in th e unfused cervical or lumbar spine. Coronal Deformity: There is a mild ??convexed right curvatu re of the thoracolumbar/lumbar spine with apex at T12. No substantial global coronal imbalance. Sagittal Vertical Austin (A vertical line drawn from the center [...] spine. ? Left: Weight bearing axis crosses through the lateral tibial spine. Leg length: ??(Measured from the top of [...] pattern. Procedure Note Madalyn Zaragoza MD - 04/18/2018Format ting of this note might be different from the original. Exam: XR SIX FOOT STANDING EXTREMITIES, XR SPINE COMPLETE SCOLIOSIS 2 VW, 04/18/2018 9:23 AM Indication: Scoliosis Techniques: AP and lateral EOS composite images of full body images were submitted for interpretation. Comparison: 01/17/2018 Findings: 12 rib bearing vertebral bodies and 5 nina mbar type vertebral bodies are identified. Posterior fusion instrumentation extends from T4 through L3. No evidence of hardware complication. Nonspecific straightening of the normal cervical lordosis. No evidence of substantial degenerative change in th e unfused cervical or lumbar spine. Coronal Deformity: There is a mild convexed right curvature of the thoracolumbar/lumbar spine with apex at T12. No substantial global coronal imbalance. Sagittal Vertical Austin (A vertical line drawn from the center [...] tibial spine. Left: Weight bearing axis crosses throu gh the lateral tibial spine. Leg length: (Measured from the top of th e femoral head to the center of tibial plafond. It is assumed joints are in similar degrees of extension bilaterally. Significant diffe rence is defined when discrepancy is greater than 1.5 cm). No significant leg length discrepancy. Additional Findings: No acute osseous abnormality. There is a nonobstructive bowel gas pattern. Impression: 1. Fusion hardware from T4 through L3 wi thout evidence of hardware complication. 2. Mild convex right curvature of the th oracolumbar/lumbar spine with apex at T12. 3. No substantial global coronal imbalan ce. 4. Normal sagittal vertical axis. MADALYN ZARAGOZA MD Bebeto Roth MD IMG DIAGNOSTIC IMAGING ORDER TYALOR documented in this encounter Visit Diagnoses Not on filedocumented in this encounter Care Teams Litigation Secretary Relationship Specialty Start Date End Date Keri Elias PCP - General Family Practice 03/12/15 9 MD Ira Glez David Wayne, MD Orthopedics 07/09/14 [facility] [place] [address] Astrid Rios PA-C Physician Boat Rigger Physician Boat Rigger - 07/09/14 Surgical documented as of this encounter
--- OUTSIDE RECORDS SUMMARY | 2021-12-17 15:06 | XMS_ITS | Encounter Summary ---
:1980 Author Organization [place] Address [address] [place] [address]. [place] [address] Care Team Providers Name Role Phone Bebeto Roth MD Unavailable Astrid Rios PA-C Unavailable Francisco Metz MD Primary Care Provider [phone] Francisco Metz MD Unavailable [phone] Encounter Details Date Type Department Care Team Description 01/15/[address] [facility] Scan, ENDOCRINOLOGY Health Info Mgmt Non-Provider REFERRAL NO [facility] AND [address] [address] Social History Tobacco Use Types Packs/Day Years [...] on filedocumented in this encounter Care Teams Parts Sales Associate Relationship Specialty Start Date End Date Francisco Metz PCP - General Family Practice 11/14/18 04/02/20 MD Stevie Bebeto Roth MD Orthopedics 07/09/[address] [place], [place] [address] Astrid Rios PA-C Physician Grain Oilseed Or Pasture Grower Physician Grain Oilseed Or Pasture Grower - 07/09/14 Surgical Francisco Metz Assigned PCP 07/04/19 02/01/20 MD Stevie [address] [place] [address] documented as of this encounter
--- OUTSIDE RECORDS SUMMARY | 2021-12-17 15:06 | XMS_ITS | Encounter Summary ---
:1980 Author Organization [place] Address [address] [facility] [place] [address] Care Team Providers Name Role Phone Bebeto Roth MD Unavailable Astrid Rios PA-C Unavailable Kenton Katz MD Unavailable Unavailable Karen Veliz DO Primary Care Provider Encounter Details Date Type Department Care Team Description 07/12/2020 Records - [facility] CONVERSION Provider, Histor ical Social History [...] Priority Date/Time Associated Diagnosis Comme nts XR KNEE LEFT 3 Routine 03/10/2006 12:00 AM Result s for this VIEWS FINANCIAL OFFICER procedure are i n the results section. documented in this encounter Results XR Knee Left 3 Views (03/10/2006 12:00 AM FINANCIAL OFFICER) Anatomical Region Laterality Modality Thigh, Knee, Leg Left Other Specimen (Source) Anatomical Location Collection Method / Collectio n Time Received Time / Laterality Volume Narrative 03/10/2006 12:00 AM FINANCIAL OFFICER See Historical Hospital Medical Record f or documentation Procedure Note Provider, Historical - 07/12/2020Formatt ing of this note might be different from the original. See Historical Hospital Medical Record f or documentation Historical Provider IMG DIAGNOSTIC IMAGING ORDER TAYLOR documented in this encounter Visit Diagnoses Not on filedocumented in this encounter Care Teams Shutdown Coordinator Relationship Specialty Start Date End Date Karen Veliz DO PCP - General Family Medicine 04/03/[address] [place] [address] Bebeto Roth MD Orthopedics 07/09/[address] [place] [address] Astrid Rios PA-C Physician Teacher Music Physician Teacher Music - 07/09/14 Surgical Kenton Katz Assigned PCP 02/02/20 08/27/20 MD Feliberto NO INFO AVAILABLE documented as of this encounter
--- OUTSIDE RECORDS SUMMARY | 2021-12-17 15:06 | XMS_ITS | Encounter Summary ---
:1980 Author Organization [place] Address [address] [facility] [place] [address] Care Team Providers Name Role Phone Bebeto Roth MD Unavailable Astrid Rios PA-C Unavailable Keri Elias MD Primary Care Provider Unavailable Encounter Details Date Type Department Care Team Description 04/18/2018 Travel Social History Tobacco Use Types Packs/Day [...] on filedocumented in this encounter Care Teams Program Architect Relationship Specialty Start Date End Date Keri Elias PCP - General Family Practice 03/12/15 9 MD Ira Glez David Wayne, MD Orthopedics 07/09/[address] [place] [address] Astrid Rios PA-C Physician Software Product Manager Physician Software Product Manager - 07/09/14 Surgical documented as of this encounter
--- OUTSIDE RECORDS SUMMARY | 2021-12-17 15:06 | XMS_ITS | Encounter Summary ---
:1980 Author Organization [place] Address [address] [facility] [place] [address] Care Team Providers Name Role Phone Bebeto Roth MD Unavailable Astrid Rios PA-C Unavailable Francisco Metz MD Primary Care Provider [phone] Reason for Referral Diagnostic Imaging XR (Routine) - Closed Specialty Diagnoses / Procedures Referred By Contact Refer red To Contact Diagnoses Adolescent idiopathic scoliosis of thoracolumbar region Bebeto Roth MD Procedures XR Spine Complete Scoliosis [address] Views [address] [place], [place] [address] Referral ID Status Reason Start Date Expiration Date Visits Requ ested Visits Authorized [id number] Closed 12/31/2018 12/31/2019 1 1 OFFICER Diagnostic Imaging XR (Routine) - Closed Specialty Diagnoses / Procedures Referred By Contact Refer red To Contact Diagnoses Adolescent idiopathic scoliosis of thoracolumbar region Bebeto Roth MD Procedures XR Six Foot Standing Extremities [address] [place], [place] [address] Referral ID Status Reason Start Date Expiration Date Visits Requ ested Visits Authorized [id number] Closed 12/31/2018 12/31/2019 1 1 OFFICER Encounter Details Date Type Department Care Team Description 12/31/2018 Orders Only [facility] Orthopaedic Bebeto Roth is (Primary Dx); Clinic MD Devan Adolescent idiopathic scoliosis of [facility] [address] [facility] [address] [place] [id number] Social History Tobacco Use Types Packs/Day Years Used Date Smoking Tobacco: Never Smokeless Tobacco: Never Alcohol Use Standard Drinks/Week Comments No 0 (1 standard drink = 0.6 oz pure alcoho l) Sex Assigned at Date Recorded Not on file documented as of this encounter Plan of Treatment Scheduled Orders Name Type Priority Associated Diagnoses Order S chedule XR Six Foot Standing Imaging Routine Adolescent idiopathi c Ordered: 12/31/2018 Extremities scoliosis of thoracolumbar region XR Spine Complete Imaging Routine Adolescent idiopathic O rdered: 12/31/2018 Scoliosis 2 Views scoliosis of thoracolumbar region documented as of this encounter Visit Diagnoses Diagnosis Scoliosis - Primary Scoliosis (and kyphoscoliosis), idiopath ic Adolescent idiopathic scoliosis of [facility] Scoliosis (and kyphoscoliosis), idiopath ic documented in this encounter Care Teams Automotive Accessory Installer Relationship Specialty Start Date End Date Francisco Metz PCP - General Family Practice 11/14/18 04/02/20 MD Stevie Bebeto Roth MD Orthopedics 07/09/14 [place] [address] [place], [place] [address] Astrid Rios PA-C Physician Owner Oral Surgeon Physician Owner Oral Surgeon - 07/09/14 Surgical documented as of this encounter
--- OUTSIDE RECORDS SUMMARY | 2021-12-17 15:06 | XMS_ITS | Encounter Summary ---
:1980 Author Organization [place] Address [facility] [place] [address] Care Team Providers Name Role Phone Bebeto Roth MD Unavailable Astrid Rios PA-C Unavailable Keri Elias MD Primary Care Provider Unavailable Reason for Visit Reason Comments Surgical Followup 12 wk pop DOS 10/23/17 Surgical Followup Encounter Details Date Type Department Care Team Description 01/17/2018 Office Visit [facility] Orthopaedic Bebeto Roth S/P spi nal fusion Clinic MD Devan (Primary Dx) [address] [place] [address] [place] [address] Social History Tobacco Use Types Packs/Day Years Used Date Smoking Tobacco: Never Smokeless Tobacco: Never Alcohol Use Standard Drinks/Week Comments No 0 (1 standard drink = 0.6 oz pure alcoho l) Sex Assigned at Date Recorded Not on file documented as of this encounter Progress Notes Bebeto Roth MD - 01/17/2018 7:45 AM CST [facility] Orthopedics Bebeto Roth MD 01/17/2018 Name: Azul Garg Age: [age] year old : 1980 Referring provider: Referred Self Chief Complaint: Postoperative evaluation ?? Date of Surgery: 10/23/2017 ?? Procedure: 1. Posterior spinal fusion thoracic 4 to thoracic 10 2. Segmental spinal instrumentation T4-T9 3. Reinsertion spinal instrumentation T10 4. Rivera-Khan osteotomies T6-7 through T9-10 5. 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 I last evaluated the patient on 12/13/2017, at which time she was overall doing well but did have onset of some upper back pain after lifting a crock pot. Radiographs showed instrumentation was intact without evidence of loosening, fracture,or migration. Plan was to continue tapering narcotics and return to work for partial days. Today, the patient reports she is been doing well. Her pain is level currently 2 out of 10 and stable at this level. She has been taking Vicodin and muscle relaxer as needed for this. She reports noticing some donny-incisional numbness which does not bother her that was just new for her to notice that.She denies any numbness tingling or symptoms distally. SRS 64% KYLEE: 12 Uzsuro39: 32 Pain scale: 2.5/10 Physical Examination: Focused examination reveals a well-healed surgical incision. She is Novastan intact distally with 5 out of 5 plantar flexor dorsi flexion strength and sensation intact in lower extremity dermatomes. Gait is normal. Radiographs: Status post I have independently reviewed the above imaging studies; the results were discussed with the patient. Assessment: 37 year old female with lumbar fusion previously now status post extension of the thoracic spine forproximal junctional kyphosis in October 23, 2017. Plan: We reviewed the patient's x-rays with her and her progress to this point. We discussed to her donny-incisional numbness that this is not something for her to be concerned about and should continue to improve though it may not completely resolved. We discussed that she is okay at this point to begin using ibuprofen or other NSAID type medications in place of her narcotics and should finish weaning off the narcotics. Patient did have questions today regarding future and we reviewed with her that she may have some backache during but that this is relatively normal with . She is able to bear child to term. We discussed epidural and that she does have a normal spine below through L3 which would be amenable to epidural anesthetic. She will follow-up in 3 months time for repeat x-rays and evaluation. All questions answered. Jesus Parker MD Orthopedic Surgery; PGY-4 This patient was seen, examined and counseled by Dr. Roth. I saw and evaluated the patient and developed the plan. Answers for HPI/ROS submitted by the patient on 01/16/2018 General Symptoms: No Skin Symptoms: No HENT Symptoms: Yes EYE SYMPTOMS: Yes HEART SYMPTOMS: No LUNG SYMPTOMS: No INTESTINAL SYMPTOMS: Yes URINARY SYMPTOMS: No GYNECOLOGIC SYMPTOMS: No BREAST SYMPTOMS: No SKELETAL SYMPTOMS: Yes BLOOD SYMPTOMS: No NERVOUS SYSTEM SYMPTOMS: No MENTAL HEALTH SYMPTOMS: No Ear pain: No Ear discharge: No Hearing loss: No Tinnitus: Yes Nosebleeds: No Congestion: Yes Sinus pain: Yes Trouble swallowing: No Voice hoarseness: No Mouth sores: No Sore throat: No Tooth pain: No Gum tenderness: No Bleeding gums: No Change in taste: No Change in sense of smell: No Dry mouth: No Hearing aid used: No Neck lump: No Eye pain: No Vision loss: No Dry eyes: Yes Watery eyes: No Eye bulging: No Double vision: No Flashing of lights: No Spots: No Floaters: Yes Redness: No Crossed eyes: No Tunnel Vision: No Yellowing of eyes: No Eye irritation: No Heart burn or indigestion: Yes Nausea: No Vomiting: No Abdominal pain: No Bloating: Yes Constipation: No Diarrhea: No Blood in stool: No Black stools: No Rectal or Anal pain: No Fecal incontinence: No Yellowing of skin or eyes: No Vomit with blood: No Change in stools: No Back pain: Yes Muscle aches: Yes Neck pain: Yes Swollen joints: No Joint pain: No Bone pain: No Muscle cramps: No Muscle weakness: No Joint stiffness: No Bone fracture: No ERCIAL ACCOUNTANT documented in this encounter Nursing Notes Catherine Peralta, ATC - 01/17/2018 7:45 AM CST Reason For Visit: Chief Complaint Patient presents with ??? Spine - Surgical Followup ??? Surgical Followup 12 wk pop DOS 10/23/17 Primary MD: Keri Elias MD: Self Referred ?? Casting Carrier? 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 Work status? On medical leave. Date of injury: Chronic Type of injury: Chronic Condition. Date of surgery: 10/23/17 Type of surgery: Extension of thoracic fusion. Smoker: No Request smoking cessation information: No There were no vitals taken for this visit. Pain Assessment Patient Currently in Pain: Yes 0-10 Pain Scale: 2 Primary Pain Location: Back Pain Orientation: Upper Other Pain Locations: shoulders Pain Descriptors: Sore, Other (comment) (msucle pain) Alleviating Factors: Pain medication, Rest Aggravating Factors: Other (comment) (towards the end of the day) SRS is 64% Oswestry (KYLEE) Questionnaire OSWESTRY DISABILITY INDEX 01/16/2018 Count 10 Sum 6 Oswestry Score (%) 12 Some recent data might be hidden Neck Disability Index (NDI) Questionnaire No flowsheet data found. Visual Analog Pain Scale Back Pain Scale 0-10: 2.5 Right leg pain: 0 Left leg pain: 0 Neck Pain Scale 0-10: 0 Right arm pain: 0 Left arm pain: 0 Promis 10 Assessment PROMIS 10 01/16/2018 In general, would you say your health is: Fair In general, would you say your quality of life is: Very good In general, how would you rate your physical health? Fair In general, how would you rate your mental health, including your mood and your ability to think? Excellent In general, how would you rate your satisfaction with your social activities and relationships? Verygood In general, please rate how well you carry out your usual social activities and roles Excellent To what extent are you able to [...] Pain to 10 = Worst Imaginable Pain 3 In general, would you say your health is: 2 In general, would you say your quality of life is: 4 In general, how would you rate your physical health? 2 In general, how would you rate your mental health, including your mood and your ability to think? 5 In general, how would you rate your satisfaction with your social activities and relationships? 4 In general, please rate how well you carry out your usual social activities and roles. (This includes activities at home, at work and in your community, and responsibilities as a parent, child, spouse,employee, friend, etc.) 5 To what extent are you able to [...] pain, and 10 means worst imaginable pain? 3 Global Mental Health Score 18 Global Physical Health Score 14 PROMIS TOTAL - SUBSCORES 32 Some recent data might be hidden Catherine Peralta ATC ERCIAL ACCOUNTANT documented in this encounter Plan of Treatment Not on filedocumented as of this encounter Visit Diagnoses Diagnosis S/P spinal fusion - Primary Arthrodesis status documented in this encounter Care Teams Network Desktop Support Specialist Relationship Specialty Start Date End Date Keri Elias PCP - General Family Practice 03/12/15 9 MD Ira Glez David Wayne, MD Orthopedics 07/09/[address] [place] [address] Astrid Rios PA-C Physician Separator Inserter Physician Separator Inserter - 07/09/14 Surgical documented as of this encounter
--- OUTSIDE RECORDS SUMMARY | 2021-12-17 15:06 | XMS_ITS | Encounter Summary ---
:1980 Author Organization [place] Address [address] [facility] [place] [address] Care Team Providers Name Role Phone Bebeto Roth MD Unavailable Astrid Rios PA-C Unavailable Francisco Metz MD Primary Care Provider [phone] Encounter Details Date Type Department Care Team Description 01/09/2019 Orders Only [facility] Iron deficie [facility] Medicine Clinic MD Tamar anemia, unspecified [address], [address] [place] [address] iron deficiency anemia [address], [facility] [address] type (Primary Dx) [place], [place] [address] [place], [place] [phone] [address] Social History Tobacco Use Types Packs/Day Years Used Date Smoking Tobacco: Never Smokeless Tobacco: Never Alcohol Use Standard Drinks/Week Comments No 0 (1 standard drink = 0.6 oz pure alcoho l) Sex Assigned at Date Recorded Not on file documented as of this encounter Plan of Treatment Not on filedocumented as of this encounter Visit Diagnoses Diagnosis Iron deficiency anemia, unspecified iron deficiency anemia type - Primary documented in this encounter Care Teams Cathead Worker Relationship Specialty Start Date End Date Francisco Metz PCP - General Family Practice 11/14/18 04/02/20 MD Stevie Bebeto Roth MD Orthopedics 07/09/14 [facility] [place] [address] Astrid Rios PA-C Physician Weight Caller Physician Weight Caller - 07/09/14 Surgical documented as of this encounter
--- OUTSIDE RECORDS SUMMARY | 2021-12-17 15:06 | XMS_ITS | Encounter Summary ---
:1980 Author Organization [place] Address [facility] [place] [address] Care Team Providers Name Role Phone Bebeto Roth MD Unavailable Astrid Rios PA-C Unavailable Keri Elias MD Primary Care Provider Unavailable Reason for Visit Diagnostic Imaging XR - Closed Specialty Diagnoses / Procedures Referred By Contact Refer red To Contact Diagnoses Scoliosis Bebeto Roth MD Procedures XR Six Foot Standing Extremities [address] [place], [place] [address] Referral ID Status Reason Start Date Expiration Date Visits Requ ested Visits Authorized [id number] Closed 04/17/2018 04/17/2019 1 1 Encounter Details Date Type Department Care Team Description 04/18/2018 Ancillary Procedure [facility] Chan Roth MD [address] [facility] [place] [address] [facility] [address] [place] [id number] Social History Tobacco Use Types Packs/Day [...] Comments Diagnosis XR SIX FOOT STANDING Routine 04/18/2018 9:23 AM Scoliosis R esults for this EXTREMITIES REPROGRAPHICS TECHNICIAN procedure are i n the results section. documented in this encounter Results XR Six Foot Standing Extremities (04/18/2018 9:23 AM REPROGRAPHICS TECHNICIAN) Anatomical Region Laterality Modality Lower Extremity Computed Radiography Specimen (Source) Anatomical Location Collection Method / Collectio n Time Received Time / Laterality Volume Impressions 04/18/2018 3:19 PM REPROGRAPHICS TECHNICIAN Impression: 1. Fusion hardware from T4 through L3 wi thout evidence of hardware complication. 2. Mild convex right curvature of the th oracolumbar/lumbar spine with apex at T12. 3. No substantial global coronal imbalan ce. 4. Normal sagittal vertical axis. MADALYN ZARAGOZA MD Narrative 04/18/2018 3:19 PM REPROGRAPHICS TECHNICIAN Exam: XR SIX FOOT STANDING EXTREMITIES, XR [...] No substantial global coronal imbalance. Sagittal Vertical [place] (A vertical line drawn from the center [...] No substantial global coronal imbalance. Sagittal Vertical [place] (A vertical line drawn from the center [...] on filedocumented in this encounter Care Teams Learning And Development Analyst Relationship Specialty Start Date End Date Keri Elias PCP - General Family Practice 03/12/15 9 MD Ira Glez David Wayne, MD Orthopedics 07/09/14 [facility] [place] [id number] [place] [address] Astrid Rios PA-C Physician Out Patient Therapist Physician Out Patient Therapist - 07/09/14 Surgical documented as of this encounter
--- OUTSIDE RECORDS SUMMARY | 2021-12-17 15:06 | XMS_ITS | Encounter Summary ---
:1980 Author Organization [place] Address [address] [facility] [place] [address] Care Team Providers Name Role Phone Bebeto Roth MD Unavailable Astrid Rios PA-C Unavailable Keri Elias MD Primary Care Provider Unavailable Encounter Details Date Type Department Care Team Description 01/19/2018 Orders Only [facility] Keri Elias Acne vu lgaris (Primary Medicine Clinic MD [place] Dx) [address] [place] [address], [address] [place], [place] [address] Social History Tobacco Use Types Packs/Day Years Used Date Smoking Tobacco: Never Smokeless Tobacco: Never Alcohol Use Standard Drinks/Week Comments No 0 (1 standard drink = 0.6 oz pure alcoho l) Sex Assigned at Date Recorded Not on file documented as of this encounter Plan of Treatment Not on filedocumented as of this encounter Visit Diagnoses Diagnosis Acne vulgaris - Primary Other acne documented in this encounter Care Teams Hand Model Relationship Specialty Start Date End Date Keri Elias PCP - General Family Practice 03/12/15 9 MD Ira Glez David Wayne, MD Orthopedics 07/09/[address] [place] [address] Astrid Rios PA-C Physician Chief Environmental Commitment Officer Physician Chief Environmental Commitment Officer - 07/09/14 Surgical documented as of this encounter
--- OUTSIDE RECORDS SUMMARY | 2021-12-17 15:06 | XMS_ITS | Encounter Summary ---
:1980 Author Organization [place] Address [address] [facility] [place] [address] Care Team Providers Name Role Phone Bebeto Roth MD Unavailable Astrid Rios PA-C Unavailable Keri Elias MD Primary Care Provider Unavailable Reason for Referral Diagnostic Imaging XR - Closed Specialty Diagnoses / Procedures Referred By Contact Refer red To Contact Diagnoses Scoliosis Bebeto Roth MD Procedures XR Six Foot Standing Extremities [address] [place], [place] [address] Referral ID Status Reason Start Date Expiration Date Visits Requ ested Visits Authorized [id number] Closed 04/17/2018 04/17/2019 1 1 D INSPECTOR Diagnostic Imaging XR - Closed Specialty Diagnoses / Procedures Referred By Contact Refer red To Contact Diagnoses Bebeto Rene MD Procedures XR Spine Complete Scoliosis 2 Views [address] [place], [place] [address] Referral ID Status Reason Start Date Expiration Date Visits Requ ested Visits Authorized [id number] Closed 04/17/2018 04/17/2019 1 1 D INSPECTOR Encounter Details Date Type Department Care Team Description 04/17/2018 Orders Only [facility] Orthopaedic Bebeto Roth is (Primary Dx) Clinic MD Devan 9 [facility] [address] [place] [address] [phone] Social History Tobacco Use Types Packs/Day Years Used Date Smoking Tobacco: Never Smokeless Tobacco: Never Alcohol Use Standard Drinks/Week Comments No 0 (1 standard drink = 0.6 oz pure alcoho l) Sex Assigned at Date Recorded Not on file documented as of this encounter Plan of Treatment Not on filedocumented as of this encounter Procedures Procedure Name Priority Date/Time Associated Comments Diagnosis XR SPINE COMPLETE Routine 04/18/2018 9:23 AM Scoliosis Resu lts for this SCOLIOSIS 2 VIEWS BRAND INSPECTOR procedure are in the results section. XR SIX FOOT STANDING Routine 04/18/2018 9:23 AM Scoliosis R esults for this EXTREMITIES BRAND INSPECTOR procedure are i n the results section. documented in this encounter Results XR Spine Complete Scoliosis 2 Views (04/18/2018 9:23 AM BRAND INSPECTOR) Anatomical Region Laterality Modality Spine Computed Radiography Specimen (Source) Anatomical Location Collection Method / Collectio n Time Received Time / Laterality Volume Impressions 04/18/2018 3:19 PM BRAND INSPECTOR Impression: 1. Fusion hardware from T4 through L3 wi thout evidence of hardware complication. 2. Mild convex right curvature of the th oracolumbar/lumbar spine with apex at T12. 3. No substantial global coronal imbalan ce. 4. Normal sagittal vertical axis. MADALYN ZARAGOZA MD Narrative 04/18/2018 3:19 PM BRAND INSPECTOR Exam: XR SIX FOOT STANDING EXTREMITIES, XR [...] No substantial global coronal imbalance. Sagittal Vertical [place] (A vertical line drawn from the center [...] No substantial global coronal imbalance. Sagittal Vertical [place] (A vertical line drawn from the center [...] Roth MD IMG DIAGNOSTIC IMAGING ORDER TAYLOR XR Six Foot Standing Extremities (04/18/2018 9:23 AM BRAND INSPECTOR) Anatomical Region Laterality Modality Lower Extremity Computed Radiography Specimen (Source) Anatomical Location Collection Method / Collectio n Time Received Time / Laterality Volume Impressions 04/18/2018 3:19 PM BRAND INSPECTOR Impression: 1. Fusion hardware from T4 through L3 wi thout evidence of hardware complication. 2. Mild convex right curvature of the th oracolumbar/lumbar spine with apex at T12. 3. No substantial global coronal imbalan ce. 4. Normal sagittal vertical axis. MADALYN ZARAGOZA MD Narrative 04/18/2018 3:19 PM BRAND INSPECTOR Exam: XR SIX FOOT STANDING EXTREMITIES, XR [...] No substantial global coronal imbalance. Sagittal Vertical [place] (A vertical line drawn from the center [...] No substantial global coronal imbalance. Sagittal Vertical [place] (A vertical line drawn from the center [...] in this encounter Visit Diagnoses Diagnosis Scoliosis - Primary Scoliosis (and kyphoscoliosis), idiopath ic documented in this encounter Care Teams Ob/Gyn Physician Relationship Specialty Start Date End Date Keri Elias PCP - General Family Practice 03/12/15 9 MD Ira Glez David Wayne, MD Orthopedics 07/09/[address] [place] [address] Astrid Rios PA-C Physician Valet Attendant Physician Valet Attendant - 07/09/14 Surgical documented as of this encounter
--- OUTSIDE RECORDS SUMMARY | 2021-12-17 15:06 | XMS_ITS | Encounter Summary ---
:1980 Author Organization [place] Address [address] [facility] [place] [address] Care Team Providers Name Role Phone Bebeto Roth MD Unavailable Astrid Rios PA-C Unavailable Francisco Metz MD Primary Care Provider [phone] Reason for Visit Reason Onset Date Comments Symptoms 02/18/2019 Encounter Details Date Type Department Care Team Description 02/18/2019 Telephone [facility] Medicine Francisco Metz, Symptoms Clinic [address], [address] [place] [address] [place], [place] [phone] Social History Tobacco Use Types Packs/Day Years Used Date Smoking Tobacco: Never Smokeless Tobacco: Never Alcohol Use Standard Drinks/Week Comments No 0 (1 standard drink = 0.6 oz pure alcoho l) Sex Assigned at Date Recorded Not on file documented as of this encounter Miscellaneous Notes Telephone Encounter - Alanna Sanders RN - 02/18/2019 2:21 PM CST RN spoke with patient who states she is bleeding through a pad in 15-20 minutes and she is passing clots the size of golf balls, hgb is 11.7. [facility] tried contacting their OB provider to do a D&C, because they thought she may need this, but provider is not coming in. They are now recommending she go home or call our clinic. RN is concerned about this amount of bleeding and spoke withpreceptor to figure out what we can do for her. He recommended that if she is uncomfortable going home, to be seen at our [facility] emergency department for a second opinion. RN inquired if she has a charter bus driver, out of concern for potential dizziness. She has a charter bus driver and will head to the [facility] ER. Alanna Sanders RN ONAL PROPERTY APPRAISER Telephone Encounter - Ursula Barnes - 02/18/2019 2:00 PM CST [facility] Family Medicine phone call message-patient reporting a symptom: Symptom: Miscarrying When did symptoms begin? Feb 14 at ER. Now at ER again because bleeding has become VERY heavy. ER staff told her to call her and talk with a nurse. Characteristics: (location on body, intensity, what makes it better or worse, associated symptoms): Additional Details: Same Day Visit Offered: Additional comments: OK to leave message on voice mail? Yes Advised patient that RN would call back within 3 hours, unless emergent Primary language: Lithuanian Director Of Retail Operations needed? No Call taken on February 18, 2019 at 2:01 PM by Ursula Barnes ONAL PROPERTY APPRAISER documented in this encounter Plan of Treatment Not on filedocumented as of this encounter Visit Diagnoses Not on filedocumented in this encounter Care Teams Straw Baler Relationship Specialty Start Date End Date Francisco Metz PCP - General Family Practice 11/14/18 04/02/20 MD Stevie Bebeto Roth MD Orthopedics 07/09/[address] [place] [address] Astrid Rios PA-C Physician Director Of Recruitment And Admissions Physician Director Of Recruitment And Admissions - 07/09/14 Surgical documented as of this encounter
--- OUTSIDE RECORDS SUMMARY | 2021-12-17 15:06 | XMS_ITS | Encounter Summary ---
:1980 Author Organization [place] Address [address] [facility] [address] Care Team Providers Name Role Phone Bebeto Roth MD Unavailable Astrid Rios PA-C Unavailable Keri Elias MD Primary Care Provider Unavailable Reason for Referral Diagnostic Imaging XR - Closed Specialty Diagnoses / Procedures Referred By Contact Refer red To Contact Diagnoses Scoliosis Kyphosis (acquired) (postural) Bebeto Roth MD Procedures XR Six Foot Standing Extremities [address] [place], [place] [address] Referral ID Status Reason Start Date Expiration Date Visits Requ ested Visits Authorized [id number] Closed 01/10/2018 01/10/2019 1 1 ORT SERVICE TECH Diagnostic Imaging XR - Closed Specialty Diagnoses / Procedures Referred By Contact Refer red To Contact Diagnoses Scoliosis Kyphosis (acquired) (postural) Bebeto Roth MD Procedures XR Spine Complete Scoliosis [address] Views [address] [place], [place] [address] Referral ID Status Reason Start Date Expiration Date Visits Requ ested Visits Authorized [id number] Closed 01/10/2018 01/10/2019 1 1 ORT SERVICE TECH Encounter Details Date Type Department Care Team Description 01/10/2018 Orders Only [facility] Orthopaedic Bebeto Roth is (Primary Dx); Clinic MD Devan Kyphosis (acquired) (postural) [address] [place] [address] [place] [address] [phone] Social History Tobacco Use Types Packs/Day Years Used Date Smoking Tobacco: Never Smokeless Tobacco: Never Alcohol Use Standard Drinks/Week Comments No 0 (1 standard drink = 0.6 oz pure alcoho l) Sex Assigned at Date Recorded Not on file documented as of this encounter Plan of Treatment Not on filedocumented as of this encounter Results XR Spine Complete Scoliosis 2 Views (01/17/2018 8:41 AM SUPPORT SERVICE TECH) Anatomical Region Laterality Modality Spine Computed Radiography Specimen (Source) Anatomical Location Collection Method / Collectio n Time Received Time / Laterality Volume Impressions 01/17/2018 2:07 PM SUPPORT SERVICE TECH Impression: 1. Fusion instrumentation from T4 throug h L3 without evidence of hardware complication. 2. Mild convex right curvature of the th oracolumbar/lumbar spine with apex at T12. 3. No substantial global coronal imbalan ce. 4. Normal sagittal vertical axis. MADALYN ZARAGOZA MD Narrative 01/17/2018 2:07 PM SUPPORT SERVICE TECH Exam: XR SPINE COMPLETE SCOLIOSIS 2 VW, [...] No substantial global coronal imbalance. Sagittal Vertical [place] (A vertical line drawn from the center [...] No substantial global coronal imbalance. Sagittal Vertical [place] (A vertical line drawn from the center [...] ORDER TAYLOR XR Six Foot Standing Extremities (01/17/2018 8:40 AM SUPPORT SERVICE TECH) Anatomical Region Laterality Modality Lower Extremity Computed Radiography Specimen (Source) Anatomical Location Collection Method / Collectio n Time Received Time / Laterality Volume Impressions 01/17/2018 2:07 PM SUPPORT SERVICE TECH Impression: 1. Fusion instrumentation from T4 throug h L3 without evidence of hardware complication. 2. Mild convex right curvature of the th oracolumbar/lumbar spine with apex at T12. 3. No substantial global coronal imbalan ce. 4. Normal sagittal vertical axis. MADALYN ZARAGOZA MD Narrative 01/17/2018 2:07 PM SUPPORT SERVICE TECH Exam: XR SPINE COMPLETE SCOLIOSIS 2 VW, [...] No substantial global coronal imbalance. Sagittal Vertical [place] (A vertical line drawn from the center [...] No substantial global coronal imbalance. Sagittal Vertical [place] (A vertical line drawn from the center [...] - Primary Scoliosis (and kyphoscoliosis), idiopath ic Kyphosis (acquired) (postural) Scoliosis Scoliosis (and kyphoscoliosis), idiopath ic Kyphosis (acquired) (postural) Scoliosis Scoliosis (and kyphoscoliosis), idiopath ic Kyphosis (acquired) (postural) documented in this encounter Care Teams Core Blower Operator Relationship Specialty Start Date End Date Keri Elias PCP - General Family Practice 03/12/15 9 MD Ira Glez David Wayne, MD Orthopedics 07/09/[address] [facility] [place] [id number] [place] [address] Astrid Rios PA-C Physician Claims Collector Physician Claims Collector - 07/09/14 Surgical documented as of this encounter
--- OUTSIDE RECORDS SUMMARY | 2021-12-17 15:06 | XMS_ITS | Clinical Summary ---
:1980 Author Organization [place] Address [address] [facility] [place] [address] Care Team Providers Name Role Phone Bebeto Roth MD Unavailable Astrid Rios PA-C Unavailable Karen Veliz DO Primary Care Provider Karen Veliz DO Unavailable Allergies Active Allergy Reactions Severity Noted Date Comments Seasonal Allergies 10/04/2011 Medications Medication Sig Dispensed Refills Start Date End Date Status fluticasone (FLONASE) 50 [place] 1-2 sprays 16 g 3 07/06/19 18 Active MCG/ACT into both sprayIndications: nostrils daily Environmental allergies pseudoePHEDrine Take 120 mg by 0 Active (SUDAFED) 120 MG 12 hr mouth every tablet morning Vit-Fe Take 1 tablet by 90 tablet 3 01/08/2019 Active Fumarate-FA ( mouth daily MULTIVITAMIN W/IRON) 27-0.8 MG tabletIndications: test positive ondansetron (ZOFRAN) 4 Take 1-2 tablets 60 tablet 3 01/08/2019 Active MG tabletIndications: (4-8 mg) by test positive mouth every 8 hours as needed for nausea ferrous sulfate Take 1 tablet 60 tablet 1 01/09/2019 Active (FEROSUL) 325 (65 Fe) MG (325 mg) by tabletIndications: Iron mouth daily deficiency anemia, (with breakfast) unspecified iron deficiency anemia type ketorolac (TORADOL) 30 Inject 30 mg 0 Active MG/ML injection into the vein every 6 hours as needed for moderate pain cyclobenzaprine TK 1 T PO TID 0 08/30/2019 Active (FLEXERIL) 10 MG tablet PRN Active Problems Patient Care Coordination Note Formatting of this note might be differe nt from the original. [email or web address] Problem Noted Date S/P spinal fusion 10/23/2017 Frequent UTI 12/14/2016 Anemia, iron deficiency 12/14/2016 Pain in thoracic spine 08/07/2014 Other orthopedic aftercare(V54.89) 08/07/2014 Grief 03/13/2014 Overview: Pt's boyfriend of heroin overdose d ay after 2013. Seeing [facility] for therapy Dermatofibroma of left thigh 11/22/2012 Health Group Home 12/19/2011 Overview: Tier 0 DX V65.8 REPLACED WITH [facility] (05/21/2012) Anxiety 12/19/2011 Congenital scoliosis 12/19/2011 Scoliosis 12/19/2011 Adolescent idiopathic scoliosis 09/06/2011 Resolved Problems Problem Noted Date Resolved Date (normal spontaneous vaginal delivery) 03/06/2017 04/12/2017 Encounter for triage in patient 03/05/2017 04/12/2017 Labor and delivery, indication for care 03/05/2017 04/12/2017 Supervision of high risk , antepartum 11/19/2016 04/12/2017 Overview: Formatting of this note is dif ferent from the original. HIGH RISK with VINCENT Mar 08, 2017 by LMP [email or web address] US MATERNAL HISTORY/DIAGNOSES 1. History of - first baby with PPROM. Next 2 births at term. Declined IM Progesterone 2. Congenital scoliosis 3. Varicella non-immune. Plan to vaccina te post-. 4. 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 Eva Hogan ([phone]) CARE PLAN ?? Consults: ?? Ultrasounds: 08/03/16 (dating), 10/19/16 (anatomy survey) DELIVERY PLAN ?? Planned mode of delivery: ?? Delivery timing: ?? Notifications during labor: Page OB p dailyders above ?? Post Contraception: GBS: Depo-Provera contraceptive status 04/03/20122013 Acne vulgaris 12/19/2011 04/12/2017 in multigravida 10/05/2011 04/03/2012 Overview: Diagnosis updated by automated process. Provider to review and confirm. Immunizations Name Administration Dates Next Due HPV 04/07/2009 Influenza (IIV3) PF 12/16/2010, 12/06/2009 TDAP Vaccine (Adacel) 10/05/2011 Td (Adult), Adsorbed 1980 Family History Medical History Relation Comments Family History Negative Other Relation Status Comments Other Social History Tobacco Use Types Packs/Day Years Used Date Smoking Tobacco: Never Smokeless Tobacco: Never Tobacco Cessation: Counseling Given: No Alcohol Use Standard Drinks/Week Comments No 0 (1 standard drink = 0.6 oz pure alcoho l) Sex Assigned at Date Recorded Not on file Last Filed Vital Signs Vital Sign Reading Time Taken Comments Blood Pressure 94/56 02/18/2019 7:21 PM DIRECT CARE PROVIDER Pulse 56 02/18/2019 7:21 PM DIRECT CARE PROVIDER Temperature 36.9 ??C (98.4 ??F) 02/18/2019 3:50 PM DIRECT CARE PROVIDER Respiratory Rate 16 02/18/2019 7:21 PM DIRECT CARE PROVIDER Oxygen Saturation 94% 02/18/2019 7:21 PM DIRECT CARE PROVIDER Inhaled Oxygen Concentration - - Weight 73.5 kg (162 lb) 02/18/2019 3:50 PM DIRECT CARE PROVIDER Height 160 cm (5' 3) 04/18/2018 8:42 AM DIRECT CARE PROVIDER Body Mass Index 28.7 04/18/2018 8:42 AM DIRECT CARE PROVIDER Plan of Treatment Health Maintenance Due Date Last Done Comments ANNUAL REVIEW OF HM ORDERS 1980 HEPATITIS B IMMUNIZATION (1 1982 of 3 - 3-dose series) YEARLY PREVENTIVE VISIT 1980 COVID-19 Vaccine (#1) 02/21/1983 PHQ-2 (once per calendar 02/13/2021 07/05/2017, 02/28/2017, year) 02/14/2017, Additional history exists HPV TEST 08/05/2021 08/05/2016 PAP 08/05/2021 08/05/2016, 04/20/2011, 04/07/2009 DTAP/TDAP/TD IMMUNIZATION 10/04/2021 10/05/2011, 1980 , (2 - Td or Tdap) 1980 INFLUENZA VACCINE (#1) 2021 12/16/2010, 12/06/2009 ADVANCE CARE PLANNING 10/24/2022 10/24/2017 HEPATITIS C SCREENING Completed 04/07/2009 HIV SCREENING Completed 08/14/2019, 08/05/2016, 04/20/2011, Additional history exists IPV IMMUNIZATION Aged Out No longer eligi ble based on patient 's age to complete this topic MENINGITIS IMMUNIZATION Aged Out No longe r eligible based on patient 's age to complete this topic Pneumococcal Vaccine: Aged Out No longer eligible Pediatrics (0 to 5 Years) based on patient's age and At-Risk Patients (6 to to co mplete this topic 64 Years) Medical Devices Implanted Type Area Construction Engineer Device Shelf Model / Serial Identifier Expiration / Lot Date Graft Bone Crush Canc 30ml [id number] Bone/Tissu N/A: Spine MUSCULOSKELET AL 08/28/2020 [id number] / Implanted: Qty: 1 on 10/23/2017 by Bebeto Roth MD at [facility] e/Biologic Thoracic HANSEN [id number] / Imp Scr Danek Legacy Breakoff Set 5.5mm Ti [id number] Metallic N/A: Spine MEDTRONIC, [id number] / Implanted: Qty: 5 on 10/23/2017 by Bebeto Roth MD at [facility] Hardware/A Thoracic INC[employer]DANEK / nchor Axial Cavalero N/A: Spine MEDTRONIC [id number] / Implanted: Qty: 2 on 10/23/2017 by Bebeto Roth MD at [facility] Thoracic [employer]-DANE[employer] / Explanted Type Area Construction Engineer Device Shelf Model / Identifier Expiration Serial / Date Lot 5 Set Screws N/A: Spine Explanted: Qty: 1 on 10/23/2017 at [facility] Thoracic Insurance Payer Benefit Plan / Subscriber ID Effective Phone Address [facility] [id number] 2016-Pres [phone] [address] HMO ADVANTAGE ent [address] [place] [address] [place] (Home) [place] [address] [place] Personal/Family Self [address] [place] ([place]) [place] [address] [place] Third Constitution Party Self 1980 [address] (Home) [place] [address] Advance Directives For more information, please contact: [phone] Latest Code Status on File Code Status Date Activated Date Inactivated Comments Full Code 10/25/2017 10:23 AM 10/27/2017 8:35 AM Code Status History Code Status Date Activated Date Inactivated Comments Full Code 10/23/2017 2:18 PM 10/25/2017 10:23 AM Full Code 03/05/2017 11:49 AM 10/23/2017 2:18 PM Care Teams Fire Extinguisher Technician Relationship Specialty Start Date End Date Karen Veliz DO PCP - General Family Medicine 04/03/202019 [place] [address] Bebeto Roth MD Orthopedics 07/09/[address] [place] [address] Astrid Rios PA-C Physician Academic Computing Director Physician Academic Computing Director - 07/09/14 Surgical Karen Veliz DO Assigned PCP 08/28/202019 [place] [address]
--- OUTSIDE RECORDS SUMMARY | 2021-12-17 15:06 | XMS_ITS | Encounter Summary ---
:1980 Author Organization [facility] Address [address] [facility] [place] [address] Care Team Providers Name Role Phone Bebeto Roth MD Unavailable Astrid Rios PA-C Unavailable Francisco Metz MD Primary Care Provider [phone] Francisco Metz MD Unavailable [phone] Reason for Visit Reason Comments Consult Diabetes Encounter Details Date Type Department Care Team Description 01/23/2020 Virtual Visit [facility] Kenton Katz Diet controlled [place] [facility] MD Feliberto gestational diabetes [address] [facility] NO INFO mellitus (GDM) in [place], [place] AVAILABLE third trimester [address] (Primary Dx) [phone] Social History Tobacco Use Types Packs/Day Years Used Date Smoking Tobacco: Never Smokeless Tobacco: Never Tobacco Cessation: Counseling Given: No Alcohol Use Standard Drinks/Week Comments No 0 (1 standard drink = 0.6 oz pure alcoho l) Sex Assigned at Date Recorded Not on file COVID-19 Exposure Response Date Recorded In the last month, have you been in contact Unable to assess 01/23/2020 7: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 documented as of this encounter Patient Instructions Patient InstructionsKenton Katz - 01/23/2020 1:00 PM CST Monitoring: -Check blood sugars fasting and 1 hour after each meal (timed from the first bite of the meal). -The goal for blood sugars with diabetes in is less than 95 fasting and less than 130 1 hour after meal, less than 120 two hours after meals. Diet: -Recommend a visit with a dietitian if you have not had one already. -Dietary carbohydrate restrictions should be as follows: 30 grams of carb at breakfast, no fruit or fruit juice at breakfast, 45 grams of carb at lunch and dinner, and 15 grams of carb at snacks. It is best to avoid high fructose corn syrup, simple sugars, fruit juice, regular pop, white breads - pasta - and rice. Instead, focus on whole grain carbohydrates, vegetables, whole fruits, and lean proteins/healthy fats. -Try and walk or get some exercise/activity after meals, to help control blood sugars and weight gain. Treatment Plan: -Contact me if you begin to have 3 or more readings a week above 95 in the morning AND/or you have 3or more readings a week (2 hour post meal) above 120. Follow up: -It is recommended to have a 2 hour glucose tolerance test 6 weeks in order to evaluate for abnormal glucose. If this is normal you will not need any further treatment, however should have a blood test for diabetes every 1-3 years with your primary doctor. -If you become again, you will need to be screened for gestational diabetes as soon as the diagnosis of is made. 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 The patient has been notified of following: This telephone visit will be conducted via a call between you and your physician/provider. We have found that certain health care needs can be provided without the need for a physical exam. This service lets us provide the care you need with a short phone conversation. If a prescription is necessary we can send it directly to your pharmacy. If lab work is needed we can place an order for that and you can then stop by our lab to have the test done at a later time. Telephone visits are billed at different rates depending on your insurance coverage. During this emergency period, for some insurers they may be billed the same as an in-person visit. Please reach out to your insurance provider with any questions. If during the course of the call the physician/provider feels a telephone visit is not appropriate, you will not be charged for this service. Patient has given verbal consent for Telephone visit? Yes What phone number would you like to be contacted at? [phone] How would you like to obtain your AVS? Sharmila CC: GDM HPI: Patient presents for management of GDM. Reports that in her prior pregnancies, she has had borderline GDM which was controlled with diet. She is currently 32 weeks . Due date 03/18/2019. She failed the 1 hour OGTT and could not tolerate the 3 hour OGTT. She has not been able to meet with a cell technician yet. Her fiancee had COVID and she had symptoms so has not been able to go to the clinic for 1 month. She is checking 4/day. (AM and 2 hour PP) 91, 100, 97, 92 93, 104, 108, 113 91, 96, 106, 122 99, 100, 107, 150 96, 99, 87, 150 92 114 103 109 91 She has not gained any weight in the last two months. Notes she was having higher readings when she was ill (possible COVID). She is not following any particular diet. ROS: 10 point ROS neg other than the symptoms noted above in the HPI. PMH: GDM Scoliosis Anemia Meds: Current Outpatient Medications Medication ??? cyclobenzaprine (FLEXERIL) 10 MG tablet ??? ferrous sulfate (FEROSUL) 325 (65 Fe) MG tablet ??? fluticasone (FLONASE) 50 MCG/ACT spray ??? ketorolac (TORADOL) 30 MG/ML injection ??? ondansetron (ZOFRAN) 4 MG tablet ??? Vit-Fe Fumarate-FA ( MULTIVITAMIN W/IRON) 27-0.8 MG tablet ??? pseudoePHEDrine (SUDAFED) 120 MG 12 hr tablet No current facility-administered medications for this visit. FHX: Mother has type 2 DM. SHX: with her 5th children. Non-smoker. Exam: Gen: In NAD. A/P: Gestational DM - Discussed reasons for treating for both the patient and her baby. We discussed metformin, glyburide, and insulin use. She was having higher readings last month when she was possibly infected with COVID. This last week has been normal aside from some post dinner highs. I am actually a little skeptical of her diagnosis.Her readings have mostly been normal since she recovered from a viral illness. Monitoring: -Check blood sugars fasting and 1 hour after each meal (timed from the first bite of the meal). -The goal for blood sugars with diabetes in is less than 95 fasting and less than 130 1 hour after meal, less than 120 two hours after meals. Diet: -Recommend a visit with a dietitian if you have not had one already. -Dietary carbohydrate restrictions should be as follows: 30 grams of carb at breakfast, no fruit or fruit juice at breakfast, 45 grams of carb at lunch and dinner, and 15 grams of carb at snacks. It is best to avoid high fructose corn syrup, simple sugars, fruit juice, regular pop, white breads - pasta - and rice. Instead, focus on whole grain carbohydrates, vegetables, whole fruits, and lean proteins/healthy fats. -Try and walk or get some exercise/activity after meals, to help control blood sugars and weight gain. Treatment Plan: -Contact me if you begin to have 3 or more readings a week above 95 in the morning AND/or you have 3or more readings a week (2 hour post meal) above 120. Follow up: -It is recommended to have a 2 hour glucose tolerance test 6 weeks in order to evaluate for abnormal glucose. If this is normal you will not need any further treatment, however should have a blood test for diabetes every 1-3 years with your primary doctor. -If you become again, you will need to be screened for gestational diabetes as soon as the diagnosis of is made. Due to the COVID 19 pandemic this visit was a telephone/video visit in order to help prevent spread of infection in this high risk patient and the general population. The patient gave verbal consent for the visit today. Start time 1300 Stop time 1322 Total time 22 [place] [id number] as an E & M code Kenton Katz M.D CC: Dr Loyola Francisco [address] [address] NG MACHINE OPERATOR VERTICAL Kristina Denise CMA - 01/23/2020 1:00 PM CST Copy of OV note mailed as requested to: Dr Loyola Francisco [facility] [address] [place] [address] NG MACHINE OPERATOR VERTICAL documented in this encounter Plan of Treatment Not on filedocumented as of this encounter Visit Diagnoses Diagnosis Diet controlled gestational diabetes callum litus (GDM) in third trimester - Primary documented in this encounter Care Teams Velocity Shooter Relationship Specialty Start Date End Date Francisco Metz PCP - General Family Practice 11/14/18 04/02/20 MD Stevie Bebeto Roth MD Orthopedics 07/09/14 [facility] [place] [address] Astrid Rios PA-C Physician Wire Coiner Physician Wire Coiner - 07/09/14 Surgical Francisco Metz Assigned PCP 07/04/19 02/01/20 MD Stevie [address] [place] [address] documented as of this encounter
--- OUTSIDE RECORDS SUMMARY | 2021-12-17 15:06 | XMS_ITS | Encounter Summary ---
:1980 Author Organization [place] Address [address] [place] [address]. [place] [address] Care Team Providers Name Role Phone Bebeto Roth MD Unavailable Astrid Rios PA-C Unavailable Francisco Metz MD Primary Care Provider [phone] Reason for Visit Reason Comments Miscarriage confirmed by [facility] on February 14. Has US results with her. Now having very heavy bleedi ng with golfball sized clots. Encounter Details Date Type Department Care Team Description 02/18/2019 Emergency [facility] Miguel Angel Collins MD [facility] [place] Emergency Department [address] [address] [place] [phone] Social History Tobacco Use Types Packs/Day Years Used Date Smoking Tobacco: Never Smokeless Tobacco: Never Alcohol Use Standard Drinks/Week Comments No 0 (1 standard drink = 0.6 oz pure alcoho l) Sex Assigned at Date Recorded Not on file documented as of this encounter Last Filed Vital Signs Vital Sign Reading Time Taken Comments Blood Pressure 94/56 02/18/2019 7:21 PM OPHTHALMOLOGIST Pulse 56 02/18/2019 7:21 PM OPHTHALMOLOGIST Temperature 36.9 ??C (98.4 ??F) 02/18/2019 3:50 PM OPHTHALMOLOGIST Respiratory Rate 16 02/18/2019 7:21 PM OPHTHALMOLOGIST Oxygen Saturation 94% 02/18/2019 7:21 PM OPHTHALMOLOGIST Inhaled Oxygen Concentration - - Weight 73.5 kg (162 lb) 02/18/2019 3:50 PM OPHTHALMOLOGIST Height - - Body Mass Index 28.7 04/18/2018 8:42 AM OPHTHALMOLOGIST documented in this encounter Discharge Instructions Discharge InstructionsGrAditi Ellington MD - 02/18/2019 7:06 PM OPHTHALMOLOGIST Please make an appointment to follow up with lehr operator[facility] (phone: ). Call tomorrow for an appointment. HALMOLOGIST AttachmentsThe following attachments cannot be sent through Care Everywhere. Miscarriage, Spontaneous (Completed) (Kinyarwanda)documented in this encounter Medications at Time of Discharge Medication Sig Dispensed Refills Start Date End Date ferrous sulfate (FEROSUL) Take 1 tablet (325 60 tablet 1 325 (65 Fe) MG mg) by mouth daily tabletIndications: Iron (with breakfast) deficiency anemia, unspecified iron deficiency anemia type fluticasone (FLONASE) 50 [place] 1-2 sprays 16 g 3 07/05 MCG/ACT sprayIndications: into both nostrils Environmental allergies daily ketorolac (TORADOL) 30 Inject 30 mg into 0 MG/ML injection the vein every 6 hours as needed for moderate pain ondansetron (ZOFRAN) 4 MG Take 1-2 tablets 60 tablet 3 12/15 tabletIndications: (4-8 mg) by mouth test positive every 8 hours as needed for nausea Vit-Fe Fumarate-FA Take 1 tablet by 90 tablet 3 ( MULTIVITAMIN mouth daily W/IRON) 27-0.8 MG tabletIndications: test positive pseudoePHEDrine (SUDAFED) Take 120 mg by mouth 0 120 MG 12 hr tablet every morning documented as of this encounter ED Notes Randy Collins MD - 02/18/2019 3:30 PM CST History Chief Complaint Patient presents with ??? Miscarriage confirmed by [facility] on February 14. Has US results with her. Now having very heavy bleeding with golfball sized clots. HPI Azul Garg is a 38 year old female currently 6w4d (due date 09/13/2019) presenting with 5 days of bleeding. Patient states she started bleeding about 5 days ago and was seen at [facility] on 02/15/2019. Ultrasound was done at this point that showed intrauterine ,crown-rump length 0.5cm corresponding to 6k1d gestational age. No heart activity detected. Patient instructed to return home. This morning at 5am, she woke up with heavier bleeding and clots sizeof golf balls. She is not sure if she has passed any tissue. She states she is soaking a maternity sanitary pad with blood every 1-3 hours. She returned to [facility]- they were unable to reach OB police liaison officer and sent patient here. Patient states she received Toradol around 2pm this afternoon. Patient denies fever/chills, lightheadedness/dizziness/syncope, nausea/vomiting, severe pain. Her blood type is O pos (03/07/2002, [place]). I have reviewed the Medications, Allergies, Past Medical and Surgical History, and Social History inthe [employer] system. Review of Systems Constitutional: Negative for activity change, appetite change, chills, diaphoresis, fatigue and fever. HENT: Negative. Eyes: Negative. Respiratory: Negative for shortness of breath. Cardiovascular: Negative for chest pain, palpitations and leg swelling. Gastrointestinal: Positive for abdominal pain. Negative for constipation, diarrhea, nausea and vomiting. Endocrine: Negative. Genitourinary: Negative for dysuria, hematuria and urgency. Allergic/Immunologic: Negative. Neurological: Negative for dizziness, weakness and light-headedness. Hematological: Negative. Psychiatric/Behavioral: Negative. Physical Exam BP: 107/64 Pulse: 118 Heart Rate: 91 Temp: 98.4 ??F (36.9 ??C) Resp: 16 Weight: 73.5 kg (162 lb) SpO2: 100 % Physical Exam Vitals signs and nursing note reviewed. Exam conducted with a flexible shaft winder present. Constitutional: General: She is not in acute distress. HENT: Head: Atraumatic. Mouth/Throat: Mouth: Mucous membranes are moist. Eyes: Extraocular Movements: Extraocular movements intact. Conjunctiva/sclera: Conjunctivae normal. Pupils: Pupils are equal, round, and reactive to light. Neck: Musculoskeletal: Neck supple. Cardiovascular: Rate and Rhythm: Normal rate and regular rhythm. Pulses: Normal pulses. Pulmonary: Effort: Pulmonary effort is normal. Breath sounds: Normal breath sounds. Abdominal: General: Abdomen is flat. Bowel sounds are normal. There is no distension. Palpations: Abdomen is soft. Tenderness: There is no abdominal tenderness. Genitourinary: Exam position: Lithotomy position. Cervix: Cervical bleeding present. Musculoskeletal: Normal range of motion. Skin: General: Skin is warm and dry. Capillary Refill: Capillary refill takes less than 2 seconds. Neurological: General: No focal deficit present. Mental Status: She is alert and oriented to person, place, and time. Mental status is at baseline. Psychiatric: Mood and Affect: Mood normal. ED Course Results for orders placed or performed during the hospital encounter of 02/18/19 HCG quantitative (blood) Status: Abnormal Result Value Ref Range HCG Quantitative Serum 8,208 (H) 0 - 5 IU/L CBC with platelets Status: Abnormal Result Value Ref Range WBC 11.4 (H) 4.0 - 11.0 10e9/L RBC Count 4.26 3.8 - 5.2 10e12/L Hemoglobin 10.3 (L) 11.7 - 15.7 g/dL Hematocrit 33.2 (L) 35.0 - 47.0 % MCV 78 78 - 100 fl MCH 24.2 (L) 26.5 - 33.0 pg MCHC 31.0 (L) 31.5 - 36.5 g/dL RDW 15.0 10.0 - 15.0 % Platelet Count 328 150 - 450 10e9/L OBSTETRIC ULTRASOUND LESS THAN 14 WEEKS SINGLE 02/18/2019 5:33 PM ?? HISTORY: Vaginal bleeding with history of positive test. ?? FINDINGS: No gestational sac, yolk sac or pole visualized. Endometrial stripe measures 1.2 cm. ?? There is no free fluid in the pelvis. The right ovary measures 2.4 x 2.7 x 1.8 cm. The left ovary not clearly visualized. There is normal blood flow to right ovary. No adnexal masses. ?? IMPRESSION: 1. No evidence of gestational sac, yolk sac or pole. 2. The endometrial stripe is heterogenous and mildly thickened measuring 1.2 cm, given the patient's history of , cannot completely exclude retained products conception. Assessments & Plan (with Medical Decision Making) Azul Garg is a 38 year old woman at ~6w4d per recent ultrasound (though due date per LMP is 09/10/2019) presenting with 5 days of vaginal bleeding. Speculum exam revealed bleeding without visible tissue. HCG today is 8,208 though we do not have previous HCG levels available. Ultr asound completed at an OSH on 02/15/2019 dated at 6w1d; cardiac activity was not detected at that time and radiologist questioned intrauterine demise vs. viable . Repeat ultrasound today revealed no pole, yolk sac or gestational sac consistent with completed spontaneous . OB police liaison officer reviewed ultrasound, recommended no further intervention. Hemoglobin was 10.3, down from 11.7 at an outside hospital earlier today. Patient's baseline hemoglobin appears to be 10-11; she has a history of anemia during previous pregnancies with hgb 9-10. Patient was tachycardic to 118 on arrival to the ED and received 1L bolus of normal saline. Attestation- Patient discussed with resident. Above documentation accurately reflects history and physical. Patient seen independently of house staff. 38 year old female who is 10 weeks by dates with an outside ultrasound performed 4 days agowhich identified a 6-week fetus without heartbeat to the emergency department for evaluation of heavy vaginal bleeding. Patient's blood type is O+ from previous encounters. The patient has normalvital signs. Her heart is regular rate and rhythm without murmur. Her lungs are clear to auscultation bilaterally. Her abdomen is soft and nontender. Her pelvic exam reveals minimal vaginal bleeding from her cervical loss. Her office is closed. The patient's hemoglobin is 10. Her ultrasound reveals noevidence for gestational sac, yolk sac, or pole. Ultrasound results were reviewed by obstetrics. As the patient is bleeding minimally, they feel that her miscarriage is complete and the patient will not require D&C. Specific indications for return discussed with the patient in detail. [facility]. RANDY COLLINS MD, MD I have reviewed the nursing notes. I have reviewed the findings, diagnosis, plan and need for follow up with the patient. Discharge Medication List as of 02/18/2019 7:05 PM Final diagnoses: Miscarriage 02/18/2019 [facility] EMERGENCY DEPARTMENT Aditi Feliciano MD Resident 02/18/19 [id number] Randy Collins MD 02/18/19 [id number] HALMOLOGIST documented in this encounter Plan of Treatment Not on filedocumented as of this encounter Procedures Procedure Name Priority Date/Time Associated Comments Diagnosis US OB < 14 WEEKS STAT 02/18/2019 5:33 PM Resul ts for this SINGLE-TRANSABDOMINAL OPHTHALMOLOGIST proced ure are in the results section. HCG QUANTITATIVE STAT 02/18/2019 4:22 PM Resul ts for this OPHTHALMOLOGIST procedure are i n the results section. CBC WITH PLATELETS Routine 02/18/2019 4:22 PM Res ults for this OPHTHALMOLOGIST procedure are i n the results section. documented in this encounter Results US OB < 14 Weeks Single (02/18/2019 5:33 PM OPHTHALMOLOGIST) Anatomical Region Laterality Modality Abdomen/Pelvis Ultrasound Specimen (Source) Anatomical Location Collection Method / Collectio n Time Received Time / Laterality Volume Impressions 02/18/2019 8:17 PM OPHTHALMOLOGIST IMPRESSION: 1. No evidence of infiltrate finding ges tational sac, yolk sac or pole. 2. The endometrial stripe is heterogenou s and mildly thickened measuring 1.2 cm, given the patient's hi story of , cannot completely exclude retained products con ception. JOSE CRUZ MORENO MD Narrative 02/18/2019 8:17 PM OPHTHALMOLOGIST OBSTETRIC ULTRASOUND LESS THAN 14 WEEKS SINGLE ?? 02/18/2019 5:33 PM HISTORY: Vaginal bleeding with history o f positive test. FINDINGS: No gestational sac, yolk sac o r pole visualized. Endometrial stripe measures 1.2 cm. There is no free fluid in the pelvis. Th e right ovary measures 2.4 x 2.7 x 1.8 cm. The left ovary not clearly visualized. There is normal blood flow to right ovary. No adnexal ma sses. Procedure Note Jose Cruz Moreno MD - 02/18/2019Forma tting of this note might be different from the original. OBSTETRIC ULTRASOUND LESS THAN 14 WEEKS SINGLE 02/18/2019 5:33 PM HISTORY: Vaginal bleeding with history o f positive test. FINDINGS: No gestational sac, yolk sac o r pole visualized. Endometrial stripe measures 1.2 cm. There is no free fluid in the pelvis. Th e right ovary measures 2.4 x 2.7 x 1.8 cm. The left ovary not clearly visualized. There is normal blood flow to right ovary. No adnexal ma sses. IMPRESSION: 1. No evidence of infiltrate finding ges tational sac, yolk sac or pole. 2. The endometrial stripe is heterogenou s and mildly thickened measuring 1.2 cm, given the patient's hi story of , cannot completely exclude retained products con ception. JOSE CRUZ MORENO MD Randy Collins MD IMG US ORDERABLES (ABNORMAL) CBC with platelets (02/18/2019 4:22 PM OPHTHALMOLOGIST) [facility] gist Method Time Signature WBC 11.4 (H) 4.0 - 11.0 02/18/2019 [facility] 10e9/L 5:55 PM OPHTHALMOLOGIST [facility] RBC Count 4.26 3.8 - 5.2 02/18/2019 [facility] 10e12/L 5:55 PM [facility] Hemoglobin 10.3 (L) 11.7 - 02/18/2019 [facility] 15.7 g/dL 5:55 PM [facility] Hematocrit 33.2 (L) 35.0 - 02/18/2019 [facility] 47.0 % 5:55 PM [facility] MCV 78 78 - 100 02/18/2019 [facility] fl 5:55 PM OPHTHALMOLOGIST [facility] MCH 24.2 (L) 26.5 - 02/18/2019 [facility] 33.0 pg 5:55 PM [facility] MCHC 31.0 (L) 31.5 - 02/18/2019 [facility] 36.5 g/dL 5:55 PM [facility] RDW 15.0 10.0 - 02/18/2019 [facility] 15.0 % 5:55 PM [facility] Platelet Count 328 150 - 450 02/18/2019 [facility] 10e9/L 5:55 PM [facility] Specimen Anatomical Collection Method Collection Time Receive d Time (Source) Location / / Volume Laterality 02/18/2019 4:22 PM 0 5:11 OPHTHALMOLOGIST PM OPHTHALMOLOGIST Aditi Feliciano MD LAB - BLOOD ORDERABLES Performing Organization Address City/State/ZIP Code Phon e Number [facility] [address] [place] [address] [facility] (ABNORMAL) HCG quantitative (blood) (02/18/2019 4:22 PM OPHTHALMOLOGIST) [facility]ist Method Time Signature HCG Quantitative 8,208 (H) 0 - 5 02/18/2019 [place] [facility] Serum IU/L 5:50 PM OPHTHALMOLOGIST [facility] Specimen Anatomical Collection Method Collection Time Receive d Time (Source) Location / / Volume Laterality Blood specimen 02/18/2019 4:22 PM 020 5:11 (specimen) OPHTHALMOLOGIST PM OPHTHALMOLOGIST Aditi Feliciano MD LAB - BLOOD ORDERABLES Performing Organization Address City/State/ZIP Code Phon e Number [facility] [address] [place] [address] [facility] documented in this encounter Visit Diagnoses Diagnosis Miscarriage Unspecified spontaneous without mention of complication documented in this encounter Administered Medications Inactive Administered Medications - up to 3 most recent administrations Medication Order MAR Action Action Date Dose Rate Site 0.9% sodium chloride BOLUS New Bag 02/18/2019 4:48 PM OPHTHALMOLOGIST 1,000 mLs 1000 mL/hr Intravenous, 1,000 mL, ONCE, at 1,000 mL/hr, Administer over 1 Hours, On 02/18/19 at 1646, For 1 dose NO Rho (D) immune globulin (RhoGam) need ed - mother Rh POSITIVE CONTINUOUS PRN, Starting on 02/18/19 at 1646, Until 02/18/19 at 2121 documented in this encounter Active and Recently Administered Medications Times are shown in OPHTHALMOLOGIST. Scheduled Medication Order 02/16/2019 02/17/2019 02/18/2019 0.9% sodium chloride BOLUS (COMPLETED) 1648 (New Bag - Provider: Kristina Keys RN)1806 (Stopped - Provider: Kristina Keys RN) Intravenous, 1,000 mL, ONCE, at 1,000 mL /hr, Administer over 1 Hours, 02/18/19 at 1646, For 1 dose PRN Medication Order 02/16/2019 02/17/2019 02/18/2019 NO Rho (D) immune globulin (RhoGam) needed - mother Rh POSITIVE CONTINUOUS PRN, Starting 02/18/19 at 1646, Until 02/18/19 at 2121 documented in this encounter Care Teams Professor Of Anthropology Relationship Specialty Start Date End Date Francisco Metz PCP - General Family Practice 11/14/18 04/02/20 MD Stevie Bebeto Roth MD Orthopedics 07/09/[address] [place] [id number] Astrid Rios PA-C Physician Picture Engraver Physician Picture Engraver - 07/09/14 Surgical documented as of this encounter
--- OUTSIDE RECORDS SUMMARY | 2021-12-17 15:06 | XMS_ITS | Encounter Summary ---
:1980 Author Organization [place] Address [address] [place] [address] Care Team Providers Name Role Phone Bebeto Roth MD Unavailable Astrid Rios PA-C Unavailable Francisco Metz MD Primary Care Provider [phone] Francisco Metz MD Unavailable [phone] Kenton Katz MD Unavailable Unavailable Karen Veliz DO Primary Care Provider Kenton Katz MD Unavailable Unavailable Karen Veliz DO Unavailable Reason for Visit Reason Onset Date Comments Referral 12/25/2019 Encounter Details Date Type Department Care Team Description 12/25/[address] [facility] Francisco Metz, Referral Jr RUIZ [address] [place] [address] 2019 [facility] [address] [place] [address] [place], [place] [address] [phone] Social History Tobacco Use Types Packs/Day Years Used Date Smoking Tobacco: Never Smokeless Tobacco: Never Alcohol Use Standard Drinks/Week Comments No 0 (1 standard drink = 0.6 oz pure alcoho l) Sex Assigned at Date Recorded Not on file documented as of this encounter Miscellaneous Notes Telephone Encounter - Rachel, May - 01/01/2020 2:44 PM CST Faustina calling to check on this referral. Would like it dated for 10/14/19 [employer]ING CONTRACT MAN Telephone Encounter - Cherry Viera - 12/26/2019 12:49 PM CST Will forward to PCP to address. Please advise. Cherry Reyes Network Relay Tester TING CONTRACT MAN Telephone Encounter - RachelMay - 12/25/2019 3:35 PM CST [facility] Family Medicine phone call message - order or referral request from patient: Order or referral being requested: Referral to Physical Therapy At Location: [facility] Additional Details: KENNY Weems states this patient needs a referral for outpatient physical therapy at their location from her primary doctor here. She hasn't had any OB care here and she states that this is the only location she can see her receiving care. Faustina states the patient has attended 10/13 and 10/27. Patient no showed 11/10 Referral only -Specialty Physical Therapy Location [address] [address] [place] to leave a message on voice mail? Yes Primary language: [facility] Director needed? No Call taken on December 25, 2019 at 3:35 PM by May Rachel Order request route to P SMI TRIAGE Referrals Route to P SMI (Green/Nisland/Purple) TABLE COVER FOLDER TING CONTRACT MAN documented in this encounter Plan of Treatment Not on filedocumented as of this encounter Visit Diagnoses Not on filedocumented in this encounter Care Teams Production Machine Tender Relationship Specialty Start Date End Date Francisco Metz PCP - General Family Practice 11/14/18 04/02/20 MD Stevie Karen Veliz PCP - General Family Medicine 04/03/[address] [place] [address] Bebeto Roth MD Orthopedics 07/09/14 [facility] [place] [address] Astrid Rios PA-C Physician Biodiesel Production Associate Physician Biodiesel Production Associate - 07/09/14 Surgical Francisco Metz Assigned PCP 07/04/19 02/01/20 MD Stevie [address] [place] [address] Kenton Katz Assigned PCP 02/02/20 08/27/20 MD Feliberto NO INFO AVAILABLE Kenton Katz Assigned Endocrinology 08/28/20 07/23/21 MD Feliberto Provider NO INFO AVAILABLE Karen Veliz, Assigned PCP 08/28/20 DO [address] [place], [place] [id number] documented as of this encounter
--- OUTSIDE RECORDS SUMMARY | 2021-12-17 15:06 | XMS_ITS | Encounter Summary ---
:1980 Author Organization [place] Address [facility] [facility] [place] [address] Care Team Providers Name Role Phone Bebeto Roth MD Unavailable Astrid Rios PA-C Unavailable Keri Elias MD Primary Care Provider Unavailable Reason for Visit Diagnostic Imaging XR - Closed Specialty Diagnoses / Procedures Referred By Contact Refer red To Contact Diagnoses Scoliosis Kyphosis (acquired) (postural) Bebeto Roth MD Procedures XR Spine Complete Scoliosis [address] [place], [place] [address] Referral ID Status Reason Start Date Expiration Date Visits Requ ested Visits Authorized [id number] Closed 01/10/2018 01/10/2019 1 1 Encounter Details Date Type Department Care Team Description 01/17/2018 Radiant Appointment [facility] Bebeto Roth Scol iosis; Center Xray MD Devan Kyphosis (acquired) (postural) [address] [facility] [address] [facility] [address] [place] [address] [phone] Social History Tobacco Use Types Packs/Day Years [...] Diagnosis Comme nts XR SPINE COMPLETE Routine 01/17/2018 8:41 AM Scoliosis Results for this SCOLIOSIS 2 VIEWS SIEBEL CRM DEVELOPER Kyphosis (acquired) pro cedure are in (postural) the results section. documented in this encounter Results XR Spine Complete Scoliosis 2 Views (01/17/2018 8:41 AM SIEBEL CRM DEVELOPER) Anatomical Region Laterality Modality Spine Computed Radiography Specimen (Source) Anatomical Location Collection Method / Collectio n Time Received Time / Laterality Volume Impressions 01/17/2018 2:07 PM SIEBEL CRM DEVELOPER Impression: 1. Fusion instrumentation from T4 throug h L3 without evidence of hardware complication. 2. Mild convex right curvature of the th oracolumbar/lumbar spine with apex at T12. 3. No substantial global coronal imbalan ce. 4. Normal sagittal vertical axis. MADALYN ZARAGOZA MD Narrative 01/17/2018 2:07 PM SIEBEL CRM DEVELOPER Exam: XR SPINE COMPLETE SCOLIOSIS 2 VW, [...] No substantial global coronal imbalance. Sagittal Vertical [place] (A vertical line drawn from the center [...] No substantial global coronal imbalance. Sagittal Vertical [place] (A vertical line drawn from the center [...] (postural) documented in this encounter Care Teams Rock Singer Relationship Specialty Start Date End Date Keri Elias PCP - General Family Practice 03/12/15 9 MD Ira Glez David Wayne, MD Orthopedics 07/09/[address] [place] [address] Astrid Rios PA-C Physician Milanese Knitting Machine Operator Physician Milanese Knitting Machine Operator - 07/09/14 Surgical documented as of this encounter
--- OUTSIDE RECORDS SUMMARY | 2021-12-17 15:06 | XMS_ITS | Encounter Summary ---
:1980 Author Organization [place] Address [address] [facility] [address] Care Team Providers Name Role Phone Bebeto Roth MD Unavailable Astrid Rios PA-C Unavailable Francisco Metz MD Primary Care Provider [phone] Francisco Metz MD Unavailable [phone] Encounter Details Date Type Department Care Team Description 01/23/2020 Travel Social History Tobacco Use Types Packs/Day Years Used Date Smoking Tobacco: Never Smokeless Tobacco: Never Alcohol Use Standard Drinks/Week Comments No 0 (1 standard drink = 0.6 oz pure alcoho l) Sex Assigned at Date Recorded Not on file COVID-19 Exposure Response Date Recorded In the last month, have you been in contact Unable to assess 01/23/2020 7:04 AM PATENT LAW SPECIALIST with someone who was confirmed or suspected to have Coronavirus / COVID-19? documented as of this encounter Plan of Treatment Not on filedocumented as of this encounter Visit Diagnoses Not on filedocumented in this encounter Care Teams Elastic Tape Inserter Relationship Specialty Start Date End Date Francisco Metz PCP - General Family Practice 11/14/18 04/02/20 MD Stevie Bebeto Roth MD Orthopedics 07/09/14 [facility] [place], [place] [address] Astrid Rios PA-C Physician Squaring Machine Operator Physician Squaring Machine Operator - 07/09/14 Surgical Francisco Metz Assigned PCP 07/04/19 02/01/20 MD Stevie [address] [place] [address] documented as of this encounter
--- OUTSIDE RECORDS SUMMARY | 2021-12-17 15:07 | XMS_ITS | Encounter Summary ---
:1980 Author Organization [place] Address [address] [facility] [place] [address] Care Team Providers Name Role Phone Bebeto Roth MD Unavailable Astrid Rios PA-C Unavailable Keri Elias MD Primary Care Provider Unavailable Reason for Referral Diagnostic Imaging XR - Closed Specialty Diagnoses / Procedures Referred By Contact Refer red To Contact Diagnoses S/P spinal fusion Bebeto Roth MD Procedures XR Six Foot Standing Extremities [address] [address] Referral ID Status Reason Start Date Expiration Date Visits Requ ested Visits Authorized [id number] Closed 11/06/2017 11/06/2018 1 1 Diagnostic Imaging XR - Closed Specialty Diagnoses / Procedures Referred By Contact Refer red To Contact Diagnoses S/P spinal fusion Bebeto Roth MD Procedures XR Spine Complete 2 Views [address] [place], [place] [address] Referral ID Status Reason Start Date Expiration Date Visits Requ ested Visits Authorized [id number] Closed 11/06/2017 11/06/2018 1 1 Encounter Details Date Type Department Care Team Description 11/06/2017 Orders Only [facility] Orthopaedic Bebeto Roth S/P spi nal fusion Clinic MD Devan (Primary Dx[address] [place] [address] [phone] Social History Tobacco Use Types Packs/Day Years Used Date Smoking Tobacco: Never Smokeless Tobacco: Never Alcohol Use Standard Drinks/Week Comments No 0 (1 standard drink = 0.6 oz pure alcoho l) Sex Assigned at Date Recorded Not on file documented as of this encounter Plan of Treatment Not on filedocumented as of this encounter Results XR Six Foot Standing [...] No substantial global coronal imbalance. Sagittal Vertical [place] (A vertical line drawn from the center [...] pattern. Procedure Note Madalyn Zaragoza MD - 12/13/2017Format ting of this note [...] No substantial global coronal imbalance. Sagittal Vertical [place] (A vertical line drawn from the center [...] MD IMG DIAGNOSTIC IMAGING ORDER TAYLOR XR Spine Complete 2 Views (12/13/2017 2:34 [...] No substantial global coronal imbalance. Sagittal Vertical [place] (A vertical line drawn from the center [...] pattern. Procedure Note Madalyn Zaragoza MD - 12/13/2017Format ting of this note [...] No substantial global coronal imbalance. Sagittal Vertical [place] (A vertical line drawn from the center [...] S/P spinal fusion - Primary Arthrodesis status S/P spinal fusion Arthrodesis status S/P spinal fusion Arthrodesis status documented in this encounter Care Teams Dental Lab Technician Relationship Specialty Start Date End Date Keri Elias PCP - General Family Practice 03/12/15 9 MD Ira Glez David Wayne, MD Orthopedics 07/09/14 [id number] [place] [address] Astrid Rios PA-C Physician Medical Doctor Md Physician Medical Doctor Md - 07/09/14 Surgical documented as of this encounter
--- OUTSIDE RECORDS SUMMARY | 2021-12-17 15:07 | XMS_ITS | Encounter Summary ---
:1980 Author Organization [place] Address [address] [place] [address] Care Team Providers Name Role Phone Bebeto Roth MD Unavailable Astrid Rios PA-C Unavailable Keri Elias MD Primary Care Provider Unavailable Reason for Visit Reason Comments Prior Auth - Medication Ondansetron 4MG ODT Encounter Details Date Type Department Care Team Description 10/30/2017 Documentation Only [facility] Awa Wilcox Prior Auth - [id number] [facility] MarthaBLAYNE [place] [address] [address] [facility] (Ondansetron 4MG [phone] SE ODT) [place] [address] Social History Tobacco Use Types Packs/Day Years Used Date Smoking Tobacco: Never Smokeless Tobacco: Never Alcohol Use Standard Drinks/Week Comments No 0 (1 standard drink = 0.6 oz pure alcoho l) Sex Assigned at Date Recorded Not on file documented as of this encounter Progress Notes Nadya Deras, KENNY - 11/13/2017 1:16 PM CDT See call center message. I called pt;. & gave her the phone#[phone] for the Medication Prior Auth. Dept. Triage stated this AM pharmacy request was faxed to Prior Auth dept. Pt. Will F/U with them. She states still has slight nausea after surgery & Zofran helps. RTC [id number]. S.O./L:Michelle Deras RN. Laureen Simmons RN - 11/13/2017 11:44 AM CDT [facility] Call Center Phone Message May a detailed message be left on voicemail: yes Reason for Call: Medication Question or concern regarding medication Prescription Clarification Name of Medication: ondansetron (ZOFRAN-ODT) 4 MG ODT tab Prescribing Provider: Dr. Roth Pharmacy: [facility] What on the order needs clarification? Patient calling, [facility] pharmacy has been sending PA requestand we have reported not received? Per note below looks like PA DENIED, wondering if appeal attempted / in process for larger quantity? Patient requesting call back to discuss. Action Taken: Message routed to: [facility] Orthopedics Renu Lopez - 10/30/2017 2:39 PM CDT Images from the original note were not included. Prior Authorization DENIAL Name of drug: Ondansetron 4MG ODT Date Initiated: 10/26/17 Date Completed: 10/26/17 Prior Auth Type: Quantity Limit Status: Denied Denial Date: 10/26/17 Denial Reasoning: Other: Your Aloxi, Anzemet Tabs, Granisetron, Sustol, Zofran PL criteria covers this drug when you meet one of these conditions: - You have hyperemesis gravidarum - You are undergoing radiation therapy - You are undergoing moderate to highly emetogenic chemotherapy. Your use of this drug does not meet the requirement. Appeal Info: Prescription Claim Appeals 109 - [facility] [employer] [address] [address] [place] [address] Fax: Appeal: No Appeal Status:n/a Copay: $6.16 [place] Filled: Yes - Per prescriber, patient was discharge with a quantity that complies with insurance limitations. Insurance: [employer] Commercial - [facility] Submitted Via: Stephan Lopez [place] [facility] Lia[facility] [address], [place] [address] maria [email or web address] Pager: [phone] documented in this encounter Plan of Treatment Not on filedocumented as of this encounter Visit Diagnoses Not on filedocumented in this encounter Care Teams Director Of Retention Relationship Specialty Start Date End Date Keri Elias PCP - General Family Practice 03/12/15 9 MD Ira Glez David Wayne, MD Orthopedics 07/09/[address] [place] [address] Astrid Rios PA-C Physician Cancer Researcher Physician Cancer Researcher - 07/09/14 Surgical documented as of this encounter
--- OUTSIDE RECORDS SUMMARY | 2021-12-17 15:07 | XMS_ITS | Encounter Summary ---
:1980 Author Organization [place] Address [facility] [place] [address] Care Team Providers Name Role Phone Bebeto Roth MD Unavailable Astrid Rios PA-C Unavailable Keri Elias MD Primary Care Provider Unavailable Reason for Visit Reason Comments Surgical Followup 7 wk pop DOS 10/14/17 extensio n of thoracic fusion Surgical Followup Encounter Details Date Type Department Care Team Description 12/13/2017 Office Visit [facility] Orthopaedic Bebeto Roth S/P spi nal fusion Clinic MD Devan (Primary Dx) [address] [place] [address] [address]th [address] [place] [id number] Social History Tobacco Use Types Packs/Day Years [...] - - Weight 68.9 kg (152 lb) 12/13/2017 3:19 PM CDT Height 160.7 cm (5' 3.25) 12/13/2017 3:19 PM CDT Body Mass Index 26.71 12/13/2017 3:19 PM CDT documented in this encounter Progress Notes Marjan Morataya - 12/13/2017 3:00 PM CDT [facility] Orthopedics Bebeto Roth MD 12/13/2017 Name: Azul Garg Age: [age] year old : 1980 Referring provider: Referred Self Chief Complaint: Postoperative evaluation Date of Surgery: 10/23/2017 Procedure: 1. Posterior spinal fusion thoracic 4 to thoracic 10 2. Segmental spinal instrumentation T4-T9 3. Reinsertion spinal instrumentation T10 4. Rivera-Khan osteotomies T6-7 through T9-10 5. Image guided surgery History of Present Illness: Azul Garg is a 37 year old female 7 weeks status-post the above procedure who presents for postoperative evaluation. Overall, she has been doing well, but she did experience some upper back pain after lifting a crock pot recently. She states the pain is not severe, but she wants to make sure she didn't do any damage to her instrumentation. She has not yet started physical therapy. She reports that the muscle spasms in the right shoulder improved after surgery. She is currently taking vicodin 3-4 times per day. She denies problems with the incision. KYLEE: 24% Vahmbr43: 29 Pain scale: 4 Physical Examination: Ht 1.607 m (5' 3.25) Wt 68.9 kg (152 lb) BMI 26.71 kg/m2 Constitutional - Patient is healthy, well-nourished and appears stated age. BMI = 26.71 Respiratory - Patient is breathing normally and in no respiratory distress. Skin - No suspicious rashes or lesions. Psychiatric - Normal mood and affect. Cardiovascular - Extremities warm and well perfused. Eyes - Visual acuity is normal to the written word. ENT - Hearing intact to the spoken word. GI - No abdominal distention. Musculoskeletal - Non-antalgic gait without use of assistive devices. Thoracolumbar Spine: Appearance - Incision is healing well without erythema, warmth or drainage Palpation - Non-tender to palpation ROM - Deferred Motor - LOWER EXTREMITY Left Right Hip flexion 5/5 5/5 Knee flexion 5/5 5/5 Knee extension 5/5 5/5 Ankle dorsiflexion 5/5 5/5 Ankle plantarflexion 5/5 5/5 Great toe extension 5/5 5/5 Neurologic - Sensation intact to light touch bilaterally. Radiographs: Radiographs of the spine were obtained today. They show instrumentation that is intact without evidence of loosening, fracture or migration. I have independently reviewed the above imaging studies; the results were discussed with the patient. Assessment: S/P extension of posterior spinal fusion to thoracic 4 Plan: Azul is a 37 year old female who returned to clinic today for her first post operative appointment following extension of posterior spinal fusion to thoracic 4, which was performed by Dr. Roth on 10/14/17. She is progressing well. Her incision is healing nicely without signs of infection. Radiographs were obtained today, and they show instrumentation that remains intact without evidence of loosening,fracture or migration. At this point, she does not need structured physical therapy unless she wantsit. She should continue to taper off the narcotic medication. She requested to return to work, and Isuggested partial days to start. She would need to be off narcotic pain medication prior to returning to work. She would like to think about partial versus full day shifts, and she will let us know. She should return to clinic again in 5-6 weeks for repeat xrays and further evaluation. All other questions were answered today. This patient was seen without Dr. Roth. Huong Stock PA-C ........................ 12/13/2017, 4:37 PM Answers for HPI/ROS submitted by the patient on 12/13/2017 General Symptoms: No Skin Symptoms: No HENT Symptoms: Yes EYE SYMPTOMS: Yes HEART SYMPTOMS: No LUNG SYMPTOMS: No INTESTINAL SYMPTOMS: No URINARY SYMPTOMS: No GYNECOLOGIC SYMPTOMS: No BREAST SYMPTOMS: No SKELETAL SYMPTOMS: Yes BLOOD SYMPTOMS: No NERVOUS SYSTEM SYMPTOMS: No MENTAL HEALTH SYMPTOMS: No Ear pain: Yes Ear discharge: No Hearing loss: No Tinnitus: Yes Nosebleeds: Yes Congestion: No Sinus pain: Yes Trouble swallowing: No Voice hoarseness: No Mouth sores: No Sore throat: No Tooth pain: No Gum tenderness: No Bleeding gums: Yes Change in taste: No Change in sense of smell: No Dry mouth: No Hearing aid used: No Neck lump: No Eye pain: No Vision loss: No Dry eyes: Yes Watery eyes: No Eye bulging: No Double vision: No Flashing of lights: No Spots: No Floaters: Yes Redness: No Crossed eyes: No Tunnel Vision: No Yellowing of eyes: No Eye irritation: Yes Back pain: Yes Muscle aches: Yes Neck pain: Yes Swollen joints: No Joint pain: No Bone pain: No Muscle cramps: No Muscle weakness: No Joint stiffness: No Bone fracture: No documented in this encounter Nursing Notes Catherine Peralta, ATC - 12/13/2017 3:00 PM CDT Reason For Visit: Chief Complaint Patient presents with ??? Spine - Surgical Followup ??? Surgical Followup 7 wk pop DOS 10/14/17 extension of thoracic fusion Primary MD: Keri Elias Ref. MD: Self Referred Head Up Operator Helper? 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 Work status? On medical leave. Date of injury: Chronic Type of injury: Chronic Condition. Date of surgery: 10/23/17 Type of surgery: Extension of thoracic fusion. Smoker: No Request smoking cessation information: No Ht 1.607 m (5' 3.25) Wt 68.9 kg (152 lb) BMI 26.71 kg/m2 Pain Assessment Patient Currently in Pain: Yes 0-10 Pain Scale: 4 Primary Pain Location: Back Pain Orientation: Upper Other Pain Locations: shoulders Pain Descriptors: Sore Alleviating Factors: Rest Aggravating Factors: Movement, Walking Oswestry (KYLEE) Questionnaire OSWESTRY DISABILITY INDEX 12/13/2017 Count 10 Sum 12 Oswestry Score (%) 24 Some recent data might be hidden Neck Disability Index (NDI) Questionnaire No flowsheet data found. Promis 10 Assessment PROMIS 10 12/13/2017 In general, would you say your health is: Fair In general, would you say your quality of life is: Good In general, how would you rate your physical health? Good In general, how would you rate your mental health, including your mood and your ability to think? Very good In general, how would you rate your satisfaction with your social activities and relationships? Verygood In general, please rate how well you carry out your usual social activities and roles Good To what extent are you able to carry out your everyday physical activities such as walking, climbingstairs, carrying groceries, or moving a chair? Moderately How often have you been bothered by [...] how would you rate your physical health? 3 In general, how would you rate your mental health, including your mood and your ability to think? 4 In general, how would you rate your satisfaction with your social activities and relationships? 4 In general, please rate how well you carry out your usual social activities and roles. (This includes activities at home, at work and in your community, and responsibilities as a parent, child, spouse,employee, friend, etc.) 3 To what extent are you able to carry out your everyday physical activities such as walking, climbingstairs, carrying groceries, or moving a chair? 3 In the past 7 days, how often [...] imaginable pain? 4 Global Mental Health Score 16 Global Physical Health Score 13 PROMIS TOTAL - SUBSCORES 29 Some recent data might be hidden Catherine Peralta ATC documented in this encounter Plan of Treatment Not on filedocumented as of this encounter Visit Diagnoses Diagnosis S/P spinal fusion - Primary Arthrodesis status documented in this encounter Care Teams Concierge Relationship Specialty Start Date End Date Keri Elias PCP - General Family Practice 03/12/15 9 MD Ira Glez David Wayne, MD Orthopedics 07/09/14 [facility] [place] [address] Astrid Rios PA-C Physician Airplane Patrol Pilot Physician Airplane Patrol Pilot - 07/09/14 Surgical documented as of this encounter
--- OUTSIDE RECORDS SUMMARY | 2021-12-17 15:07 | XMS_ITS | Encounter Summary ---
:1980 Author Organization [place] Address [address] [facility] [place] [address] Care Team Providers Name Role Phone Bebeto Roth MD Unavailable Astrid Rios PA-C Unavailable Keri Elias MD Primary Care Provider Unavailable Reason for Visit Reason Onset Date Comments Refill Request 11/09/2017 Encounter Details Date Type Department Care Team Description 11/09/[address] [facility] Orthopaedic Clinic Bebeto Roth MD Refill Request [address] [place], [place] [id number] [place] [phone] Social History Tobacco Use Types Packs/Day Years Used Date Smoking Tobacco: Never Smokeless Tobacco: Never Alcohol Use Standard Drinks/Week Comments No 0 (1 standard drink = 0.6 oz pure alcoho l) Sex Assigned at Date Recorded Not on file documented as of this encounter Miscellaneous Notes Telephone Encounter - Cindy Harris RN - 11/09/2017 11:37 AM CDT Refilled for nausea. documented in this encounter Plan of Treatment Not on filedocumented as of this encounter Visit Diagnoses Diagnosis S/P spinal fusion Arthrodesis status documented in this encounter Care Teams Program Production Specialist Relationship Specialty Start Date End Date Madlon-Brittnee, Keri PCP - General Family Practice 03/12/15 9 MD Ira Glez David Wayne, MD Orthopedics 07/09/[address] [place] [address] Astrid Rios PA-C Physician Computer Mechanic Physician Computer Mechanic - 07/09/14 Surgical documented as of this encounter
--- OUTSIDE RECORDS SUMMARY | 2021-12-17 15:07 | XMS_ITS | Encounter Summary ---
:1980 Author Organization [place] [facility] [place] [address] Care Team Providers Name Role Phone Myles De Oliveira MD Unavailable Astrid Rios PA-C Unavailable Keri Elias MD Primary Care Provider Unavailable Reason for Visit Auth/Cert Specialty Diagnoses / Procedures Referred By Contact Refer red To Contact Surgery Diagnoses Scoliosis Kyphosis Ur Periop Procedures PROCEDURE PLACEHOLDER ORTHO [facility] [place] [address] Phone: Fax: Referral ID Status Reason Start Date Expiration Date Visits Requ ested Visits Authorized [id number] 1 1 Encounter Details Date Type Department Care Team Description 10/23/2017 - Hospital Encounter [facility] Myles Romero S/P spinal fusion 10/27/2017 [facility] [address] MD Devan (Primary Dx) [address] [place] [address] [place] [address] [address] [place], [place] [id number] Social History Tobacco Use Types Packs/Day Years Used Date Smoking Tobacco: Never Smokeless Tobacco: Never Alcohol Use Standard Drinks/Week Comments No 0 (1 standard drink = 0.6 oz pure alcoho l) Sex Assigned at Date Recorded Not on file documented as of this encounter Last Filed Vital Signs Vital Sign Reading Time Taken Comments Blood Pressure 113/74 10/27/2017 8:34 AM CDT Pulse 90 10/27/2017 8:34 AM CDT Temperature 36.8 ??C (98.3 ??F) 10/27/2017 8:34 AM CDT Respiratory Rate 18 10/27/2017 8:34 AM CDT Oxygen Saturation 96% 10/27/2017 8:34 AM CDT Inhaled Oxygen Concentration - - Weight 68.9 kg (151 lb 14.4 oz) 10/23/2017 5:44 AM CDT Height 160.7 cm (5' 3.27) 10/23/2017 5:44 AM CDT Body Mass Index 26.68 10/23/2017 5:44 AM CDT documented in this encounter Discharge Summaries Alanna Ying MD - 10/27/2017 9:11 AM CDT ORTHOPAEDIC SURGERY DISCHARGE SUMMARY Date of Admission: 10/23/2017 Date of Discharge: 10/27/2017 2:41 PM Disposition: Home Staff Physician: Myles De Olievira MD Primary Care Provider: Keri Elias DISCHARGE DIAGNOSIS: Scoliosis Kyphosis PROCEDURES: Procedure(s): Extension of PISF T4-10 with SPOs on 10/23 BRIEF HISTORY: The patient is an adult female with a 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 She underwent approximately 10 years ago a posterior spinal fusion from T10 to L3. She initially did okay, but then developed symptoms and these were unacceptable to her. She had significant thoracic hyperkyphosis. Of note is her pelvic incidence was approximately 42 degrees, her lumbar lordosis was 66, and her thoracic kyphosis was 71. Her thoracic kyphosis should have been about 42 degrees plus or minus 10, and that she had hyperlordosis in her lumbar spine to accommodate the thoracic hyperkyphosis. Risks, benefits, alternative treatments and expected outcomes were extensively discussed with the patient. It was her strong desire to proceed. HOSPITAL COURSE: The patient was admitted following the above listed procedures for pain control and rehabilitation. Jocelin Solis Britany did well post-operatively. Medicine was consulted post operatively to aid in management of medical co-morbidities. The patient received routine nursing cares and at the time of discharge was medically stable. Vital signs were stable throughout admission. The patient is tolerating aregular diet and is voiding spontaneously. +BM prior to discharge. All PT/OT goals have been met forsafe mobility. Pain is now controlled on oral medications which will be available on discharge. Stool softeners have been used while taking pain medications to help prevent constipation. Jocelin Bueno is deemed medically safe to discharge. Antibiotics: Ancef given periop and 24 hours postop. DVT prophylaxis: SCDs. PT Progress: Has met PT/OT goals for safe mobility. Pain Meds: Weaned off all IV pain meds by discharge. Inpatient Events: No significant events or complications. PHYSICAL EXAM: General: NAD, alert and oriented, cooperative with exam. Cardio: RRR, extremities wwp. Respiratory: Non-labored breathing. MSK: Dressing c/d/i. DP and PT 2+. SILT L3-S1 bilaterally. L2-3: Hip flexion L and R 5/5 strength L4: Knee extension L and R 5/5 strength L5: Foot / EHL dorsiflexion L and R 5/5 strength S1: Plantarflexion and eversion L and R 5/5 strength FOLLOWUP: Future Appointments Date Time Provider Department Center 12/13/2017 3:00 PM Myles De Oliveira MD [facility] 01/17/2018 7:45 AM Myles De Oliveira MD [facility] Orthopaedic Surgery appointments are at the [facility] [place] ([address] [place] [address]). Call [phone] to schedule a follow-up appointment at this location with your provider. PLANNED DISCHARGE ORDERS: Discharge Medication List as of 10/27/2017 12:27 PM CONTINUE these medications which have CHANGED Details methocarbamol (ROBAXIN) 500 MG tablet Take 1 tablet (500 mg) by mouth every 6 hours as needed for muscle spasms, Disp-20 tablet, R-0, E-Prescribe ondansetron (ZOFRAN-ODT) 4 MG ODT tab Take 1 tablet (4 mg) by mouth every 6 hours as needed for nausea or vomiting, Disp-15 tablet, R-0, E-Prescribe oxyCODONE IR (ROXICODONE) 10 MG tablet Take 1-1.5 tablets (10-15 mg) by mouth every 4 hours as needed for other (pain control or improvement in physical function. Hold dose for analgesic side effects.), Disp-80 tablet, R-0, Local Print polyethylene glycol (MIRALAX/GLYCOLAX) Packet Take 17 g by mouth 2 times daily, Disp-10 packet, R-0,E-Prescribe senna-docusate (SENOKOT-S;PERICOLACE) 8.6-50 MG per tablet Take 1 tablet by mouth 2 times daily, Disp-30 tablet, R-0, E-Prescribe CONTINUE these medications which have NOT CHANGED Details fluticasone (FLONASE) 50 MCG/ACT spray Sevier 1-2 sprays into both nostrils daily, Disp-16 g, R-3, E-Prescribe pseudoePHEDrine (SUDAFED) 120 MG 12 hr tablet Take 120 mg by mouth every morning, Historical STOP taking these medications ibuprofen (ADVIL/MOTRIN) 600 MG tablet Comments: Reason for Stopping: Discharge Procedure Orders Reason for your hospital stay Order Comments: You were hospitalized after surgery for pain control and therapy. Adult [facility] Follow-up and recommended labs and tests Order Comments: You have an appointment with Dr. De Oliveira on 12/13/17. [facility] [place] ([address] [place] [address]). Call [phone] to schedule a follow-up appointment at this location with your provider. Activity Order Comments: No excessive bending or twisting. No lifting >10 lbs x 6 weeks. Weight bearing astolerated. Order Specific Question Answer Comments Is discharge order? Yes Discharge Instructions Order Comments: -Wound Care: Your incision was closed with sutures underneath the skin. If you have a brown/mathew rubber-like dressing (called Aquacel) applied to your surgical site, you may shower over this and pat dry afterward. You may remove the dressing 1 week after surgery. If you had a lumbar procedure and your belt line contacts the area of the incision, then place a dry dressing over the incision daily in order to keep it from being rubbed by your pants. Similarly, if you are wearing a cervical collar and your incision is on your neck, you can keep a dry dressing over the incision to keep itfrom being rubbed. Otherwise, the dressing can be removed and the wound can be left open to air. If you keep your incision covered, change the bandages every other day and keep wound clean and dry. If the dressing becomes wet for any reason, such as with sweat or water, it should be changed. Showeringis allowed if your incision is dry. No scrubbing or submerging your incision in standing water such as a bath x 4 weeks. Steri-strips (small white tape that is directly on the incision areas), if present, should be left on until they fall off or are removed at your first office visit. Do not apply creams or lotions to your wound. Your wound should remain free of discharge or significant surrounding redness. If you notice any drainage or discharge, or it it develops significant redness, please contact the clinic immediately. After hours or weekends, you may go to the Orthopaedic Surgery walk-in clinic from 7 am to 7 pm [facility] [place] ([address] [place] [id number]). -Pain control: Take medication as prescribed, but only as often as necessary. You have been prescribed a narcotic pain medication for assistance with pain control. Narcotic pain medications have numerous side effects which can include nausea, constipation, drowsiness, and itching. If you experience nausea, this may be relieved by taking th e medication with food. To avoid constipation, you should take a stool softener, as well as drink plenty of water and eat fruits and vegetables. Do not drive or drink alcohol while you are taking narcotic pain medication. As soon as you are able, you should try to wean off the narcotic pain medication. Remember that Tylenol can be used for pain relief as well, as you wean off the narcotics. Do not exceed 4,000 mg of Tylenol in 24 hours. You may not take non-steroidal anti-inflammatory medications (i.e., Advil, Ibuprofen, Aleve) for the first 3 months after surgery as it interferes with bone healing. -Please ice the affected area as much as possible to reduce swelling. Swelling is one of the most common causes of pain after surgery. -Activity: No excessive or repetitive bending, twisting or lifting. No lifting >10 lbs x 6 weeks.This means no sporting activities (such as running, tennis, bowling, golf, bicycling, etc.) until you are seen in clinic. We encourage you to be up and out of bed regularly. Please try to walk 30 minutes per day. If you have been prescribed a brace, please wear the brace when up and out of bed. -When you get home, you may resume your normal diet as tolerated. You may not be very hungry, but try to eat small healthy meals to help you heal. Remember to drink plenty of water/fluids to help keep you hydrated. -CALL OUR CLINIC ([phone] during regular office hours, or [phone] for the on-call residentMD for questions - RESIDENT DOES NOT HAVE ABILITY TO PRESCRIBE NARCOTICS) IF: Pain in your surgical area persists or worsens in the first few days after surgery. Excessive redness or drainage of cloudyor bloody material from the wounds (clear red tinted fluid and some mild drainage should be expected). Drainage of any kind > one week after surgery should be reported to the doctor. You have a temperature elevation greater than 101.5?? You have pain, swelling or redness in your calf. You have numbness or weakness in your arm, hand, leg or foot. -Call your primary doctor or seek medical care if you have any of the following: temperature greaterthan 101.4, chest pain, increased shortness of breath, nausea or vomiting. Diet Order Comments: Follow this diet upon discharge: Regular diet Order Specific Question Answer Comments Is discharge order? Yes Assign Questionnaire Series to Patient Alanna Ying MD Orthopaedic Surgery Resident, PGY-4 Pager: Associated attestation - Myles De Oliveira MD - 11/02/2017 9:47 AM CDT Attestation: I directed her care documented in this encounter Medications at Time of Discharge Medication Sig Dispensed Refills Start Date End Date fluticasone (FLONASE) 50 Sevier 1-2 sprays 16 g 3 07/05 MCG/ACT sprayIndications: into both nostrils Environmental allergies daily pseudoePHEDrine (SUDAFED) Take 120 mg by mouth 0 120 MG 12 hr tablet every morning methocarbamol (ROBAXIN) Take 1 tablet (500 20 tablet 0 10/1411/06/2017 500 MG tabletIndications: mg) by mouth every 6 S/P spinal fusion hours as needed for muscle spasms ondansetron (ZOFRAN-ODT) Take 1 tablet (4 mg) 15 tablet 0 0 10/27/2017 11/09/2017 4 MG ODT tabIndications: by mouth every 6 S/P spinal fusion hours as needed for nausea or vomiting oxyCODONE IR (ROXICODONE) Take 1-1.5 tablets 80 tablet 0 11/06/2017 10 MG tabletIndications: (10-15 mg) by mouth S/P spinal fusion every 4 hours as needed for other (pain control or improvement in physical function. Hold dose for analgesic side effects.) polyethylene glycol Take 17 g by mouth 2 10 packet 0 201701/08/2019 (MIRALAX/GLYCOLAX) times daily PacketIndications: S/P spinal fusion senna-docusate Take 1 tablet by 30 tablet 0 10/27/201712/15 (SENOKOT-S;PERICOLACE) mouth 2 times daily 8.6-50 MG per tabletIndications: S/P spinal fusion documented as of this encounter Progress Notes Sunni Hernandez MD - 10/27/2017 10:14 AM CDT No new issues reported per nursing Last night nursing notes reviewed No cp No sob No fever No chills No nausea No vomiting No loss of consciousness Had bm Voiding well Vital signs: Temp: 98.3 ??F (36.8 ??C) Temp src: Oral BP: 113/74 Pulse: 90 Resp: 18 SpO2: 96 % O2 Device: None (Room air) Oxygen Delivery: 6 LPM Height: 160.7 cm (5' 3.27) Weight: 68.9 kg (151 lb 14.4 oz) Estimated body mass index is 26.68 kg/(m^2) as calculated from the following: Height as of this encounter: 1.607 m (5' 3.27). Weight as of this encounter: 68.9 kg (151 lb 14.4 oz). PERR, EOMI Neck ; supple. No JVD . No TM Chest ; clear bilaterally , no rales , or rhonchi CVS ; RRR, no m/r/g . S1 and S2. GI ; soft abdomen , non tender , BS positive. Neuro ; alert and oriented .No facial asymmetry . No pronator drift , ROUTINE IP LABS (Last four results) BMP Recent Labs Lab 10/24/17 0705 NA 144 POTASSIUM 3.6 CHLORIDE 110* THOR 7.6* CO2 27 BUN 6* CR 0.74 GLC 99 CBC Recent Labs Lab 10/26/17 0800 10/25/17 0626 10/24/17 0705 WBC 6.1 9.9 8.8 RBC 3.88 4.03 4.04 HGB 9.9* 10.2* 10.2* HCT 30.5* 32.0* 32.2* MCV 79 79 80 MCH 25.5* 25.3* 25.2* MCHC 32.5 31.9 31.7 RDW 13.3 13.5 13.3 PLT 244 248 235 INRNo lab results found in last 7 days. A/P ; Jocelin Garg is a 37 year old female admitted on 10/23/2017 for spinal Sx ? 1) Extension Of Fusion Thoracic 4-Thoracic 10, [facility]ies Thoracic 6-10 . Date of surgery 10/23/18 Pain per ortho DVT prophylaxis, Abx and wound care as per primary team. Intensive spirometry to prevent atelectasis ? 2) Allergies- restarted??flonase . And added??pseudoephedrine per patient request ? 3) h/o Anxiety- says take ativan sparingly, has not used for >1 month . Last prescription 2 monthago Ok from medicine perspective to dc Discussed with ortho and team rounds 10/27 ? Alanna Ying MD - 10/27/2017 7:55 AM CDT Orthopaedic Surgery Progress Note October 27, 2017 Subjective: No acute events overnight. Pain controlled. +BM yesterday. Required straight cath x 2 yesterday but has voided multiple times spontaneously since. Tolerating diet. Feels ready to discharge today. Objective: BP 111/71 (BP Location: Left arm) Pulse 108 Temp 98.2 ??F (36.8 ??C) (Oral) Resp 16 Ht 1.607 m (5' 3.27) Wt 68.9 kg (151 lb 14.4 oz) LMP 09/29/2017 (Exact Date) SpO2 97% BMI26.68 kg/m2 General: NAD, alert and oriented, cooperative with exam. Cardio: RRR, extremities wwp. Respiratory: Non-labored breathing. MSK: Dressing c/d/i. DP and PT 2+. SILT L3-S1 bilaterally. L2-3: Hip flexion L and R 5/5 strength L4: Knee extension L and R 5/5 strength L5: Foot / EHL dorsiflexion L and R 5/5 strength S1: Plantarflexion and eversion L and R 5/5 strength Assessment and Plan: Jocelin Garg is a 37 year old female with PMH including GERD and prior post-operative ileus now s/p extension of PISF T4-10 with SPOs on 10/[address] De Oliveira. Orthopaedic Surgery Primary Hx of Ileus: Bowel regimen with scheduled Miralax and Sennakot. Methylnaltrexone ordered. +BM yesterday. Urinary retention: Required straight cath x 2 yesterday but has since voided spontaneously multiple times. Activity: Up with assist until independent. No excessive bending or twisting. No lifting >10 lbs x 6 weeks. No Francie lift for transfers. Weight bearing status: WBAT. Pain management: Transition from IV to PO as tolerated. Antibiotics: Ancef x 24 hours - completed. Diet: Begin with clear fluids and progress diet as tolerated. DVT prophylaxis: SCDs only. No chemical DVT ppx needed at discharge. Imaging: XR Upright Spine AP/Lateral PTDC - please obtain today. Labs: PRN. Bracing/Splinting: None. Dressings: Keep Aquacel c/d/i x 7 days. Drains: Discontinued. Physical Therapy/Occupational Therapy: Eval and treat. Consults: IM. Follow-up: Clinic with Dr. De Oliveira in 6 weeks. Disposition: Discharge home today. Alanna Ying MD Orthopaedic Surgery Resident, PGY-4 Pager: For questions about this patient, please attempt to contact me at my pager prior to contacting the Orthopaedic Surgery resident elementary school professional. Thank you! Sunni Hernandez MD - 10/26/2017 1:21 PM CDT Urinary retention No BM yet Ambulating with PT Last night nursing notes reviewed No cp No sob No fever No chills No vomiting No loss of consciousness Vital signs: Temp: 99.1 ??F (37.3 ??C) Temp src: Oral BP: 97/50 Pulse: 114 Heart Rate: 103 Resp: 16 SpO2: 98 % [id number]: None (Room air) Oxygen Delivery: 6 LPM Height: 160.7 cm (5' 3.27) Weight: 68.9 kg (151 lb 14.4 oz) Estimated body mass index is 26.68 kg/(m^2) as calculated from the following: Height as of this encounter: 1.607 m (5' 3.27). Weight as of this encounter: 68.9 kg (151 lb 14.4 oz). PERR, EOMI Neck ; supple. No JVD . No TM ROUTINE IP LABS (Last four results) BMP Recent Labs Lab 10/24/17 0705 NA 144 POTASSIUM 3.6 CHLORIDE 110* THOR 7.6* CO2 27 BUN 6* CR 0.74 GLC 99 CBC Recent Labs Lab 10/26/17 0800 10/25/17 0626 10/24/17 0705 WBC 6.1 9.9 8.8 RBC 3.88 4.03 4.04 HGB 9.9* 10.2* 10.2* HCT 30.5* 32.0* 32.2* MCV 79 79 80 MCH 25.5* 25.3* 25.2* MCHC 32.5 31.9 31.7 RDW 13.3 13.5 13.3 PLT 244 248 235 INRNo lab results found in last 7 days. A/P ; Jocelin Sapna Garg is a 37 year old female admitted on 10/23/2017 for spinal Sx ? 1) Extension Of Fusion Thoracic 4-Thoracic 10, Rivera [facility] Osteotomies Thoracic 6-10 . Date of surgery 10/23/18 Pain per ortho DVT prophylaxis, Abx and wound care as per primary team. Intensive spirometry to prevent atelectasis ? 2) Allergies- restarted??flonase . And added pseudoephedrine per patient request ? 3) h/o Anxiety- says take ativan sparingly, has not used for >1 month . Last prescription 2 monthago - on ativan 0.5 every 4 prn ?4) hx pof post op ileus in past . On Relistor , Pericolace . miralax. Dulcolax suppository 5) urinary retention ; check UA and UC Spoke with ortho and care team rounds Nafisa Rivera RN - 10/26/2017 10:[address] Technologist Progress Note Admission Date/Time: 10/23/2017 Attending MD: Myles De Oliveira MD Data Chart reviewed, discussed with interdisciplinary team. Patient was admitted for: S/P spinal fusion. Concerns with insurance coverage for discharge needs: None. Current Living Situation: Patient lives with spouse. Support System: Supportive Services Involved: No services in home prior to admit Transportation at Discharge: Family or friend will provide Transportation to Medical Appointments: - Not applicable Barriers to Discharge: No barriers identified that would impact ability to be discharged to home. Coordination of Care and Referrals: Provided patient/family with options for N/A. Assessment Patient doesn't appear to have any complex needs during admission or at discharge. Patient is independent with mobility. Plan is for patient to return to previous living situation when ready for discharge. No needs identified at this time, RNCC will continue to follow and assess if needs arise Plan Anticipated Discharge Date: TBD Anticipated Discharge Plan: home Angelica PADILLA RN [facility] RN Radiology Ct Technologist 10A E-mail: [email or web address] Pager: [phone] To contact weekend RNCC, dial [phone] and enter pager number [phone] at prompt. This pager can not be contacted by text page or outside line. Alanna Alvares MD - 10/26/2017 8:22 AM CDT Orthopaedic Surgery Progress Note October 26, 2017 Subjective: No acute events overnight. Intermittently able to void but did require straight cath x 3over the past 24 hours. +Flatus, no BM. Tolerating diet but taking it slow. Pain controlled during the day but worse at night. Objective: BP 97/50 (BP Location: Left arm) Pulse 114 Temp 99.1 ??F (37.3 ??C) (Oral) Resp 16 Ht 1.607 m (5' 3.27) Wt 68.9 kg (151 lb 14.4 oz) LMP 09/29/2017 (Exact Date) SpO2 98% BMI 26.68 kg/m2 General: NAD, alert and oriented, cooperative with exam. Cardio: RRR, extremities wwp. Respiratory: Non-labored breathing. MSK: Dressing c/d/i. DP and PT 2+. SILT L3-S1 bilaterally. L2-3: Hip flexion L and R 5/5 strength L4: Knee extension L and R 5/5 strength L5: Foot / EHL dorsiflexion L and R 5/5 strength S1: Plantarflexion and eversion L and R 5/5 strength Labs: CBC in process. Assessment and Plan: Jocelin Garg is a 37 year old female with PMH including GERD and prior post-operative ileus now s/p extension of PISF T4-10 with SPOs on 10/[address] De Oliveira. Orthopaedic Surgery Primary Hx of Ileus: Bowel regimen with scheduled Miralax and Sennakot. Methylnaltrexone ordered. Continue to monitor. Urinary retention: Intermittently able to void but requiring straight cath between. Likely related to narcotic medication. Continue to monitor. May require florez catheter replacement if continues to require straight cath. Activity: Up with assist until independent. No excessive bending or twisting. No lifting >10 lbs x 6 weeks. No Francie lift for transfers. Weight bearing status: WBAT. Pain management: Transition from IV to PO as tolerated. Antibiotics: Ancef x 24 hours - completed. Diet: Begin with clear fluids and progress diet as tolerated. DVT prophylaxis: SCDs only. No chemical DVT ppx needed at discharge. Imaging: XR Upright Spine AP/Lateral PTDC - ordered. Labs: Hgb POD#1-3. Bracing/Splinting: None. Dressings: Keep Aquacel c/d/i x 7 days. Drains: Discontinued. Physical Therapy/Occupational Therapy: Eval and treat. Consults: IM. Follow-up: Clinic with Dr. De Oliveira in 6 weeks. Disposition: Pending progress with therapies, pain control on orals, and medical stability, anticipate discharge to home in 2-3 days. Alanna Ying MD Orthopaedic Surgery Resident, PGY-4 Pager: For questions about this patient, please attempt to contact me at my pager prior to contacting the Orthopaedic Surgery resident elementary school professional. Thank you! Sunni Hernandez MD - 10/25/2017 10:13 AM CDT No new issues reported per nursing Last night nursing notes reviewed No cp No sob No fever No chills No nausea No vomiting No loss of consciousness Seen with RN Vital signs: Temp: 98.5 ??F (36.9 ??C) Temp src: Oral BP: 94/46 Heart Rate: 104 Resp: 16 SpO2: 97 % O2 Device: None (Room air) Oxygen Delivery: 6 LPM Height: 160.7 cm (5' 3.27) Weight: 68.9 kg (151 lb 14.4 oz) Estimated body mass index is 26.68 kg/(m^2) as calculated from the following: Height as of this encounter: 1.607 m (5' 3.27). Weight as of this encounter: 68.9 kg (151 lb 14.4 oz). PERR, EOMI Neck ; supple. No JVD . No TM Chest ; clear bilaterally , no rales , or rhonchi CVS ; RRR, no m/r/g . S1 and S2. GI ; soft abdomen , non tender , BS positive. Neuro ; alert and oriented .No facial asymmetry . No pronator drift , EXT : ROUTINE IP LABS (Last four results) BMP Recent Labs Lab 10/24/17 0705 NA 144 POTASSIUM 3.6 CHLORIDE 110* THOR 7.6* CO2 27 BUN 6* CR 0.74 GLC 99 CBC Recent Labs Lab 10/25/17 0626 10/24/17 0705 WBC 9.9 8.8 RBC 4.03 4.04 HGB 10.2* 10.2* HCT 32.0* 32.2* MCV 79 80 MCH 25.3* 25.2* MCHC 31.9 31.7 RDW 13.5 13.3 PLT 248 235 INRNo lab results found in last 7 days. A/P ; Jocelin Garg is a 37 year old female admitted on 10/23/2017 for spinal Sx ? 1) Extension Of Fusion Thoracic 4-Thoracic 10, Rivera [facility] Osteotomies Thoracic 6-10 . Date of surgery 10/23/18 Pain per ortho DVT prophylaxis, Abx and wound care as per primary team. Intensive spirometry to prevent atelectasis ? 2) Allergies- restarted flonase . And added pseudoephedrine per patient request ? 3) h/o Anxiety- says take ativan sparingly, has not used for >1 month . Last prescription 2 monthago - on ativan 0.5 every 4 prn ?4) hx pof post op ileus in past . On Relistor , Pericolace . Added miralax 5) Post op fever ; monitor . Encourage ambulation and IS Discussed with ortho and care team rounds Katy Denny OT - 10/25/2017 8:30 AM CDT 10/25/17 0823 Quick Adds Type of Visit Initial Occupational Therapy Evaluation Living Environment Lives With child(gabino), dependent;spouse Living Arrangements house Number of Stairs to Enter Home 1 Number of Stairs Within Home 10 Transportation Available car;family or friend will provide Living Environment Comment Has standard toilet and both walk-in shower and tub Self-Care Usual Activity Tolerance good Current Activity Tolerance moderate Regular Exercise no Equipment Currently Used at Home none Activity/Exercise/Self-Care Comment Patient reported independence with ADLs/mobility Functional Level Prior Ambulation 0-->independent Transferring 0-->independent Toileting 0-->independent Bathing 0-->independent Dressing 0-->independent Eating 0-->independent Communication 0-->understands/communicates without difficulty Swallowing 0-->swallows foods/liquids without difficulty Cognition 0 - no cognition issues reported Fall history within last six months no Prior Functional Level Comment Patient reported independence with ADLs/mobility General Information Onset of Illness/Injury or Date of Surgery - Date 10/23/[address] De Oliveira Patient/Family Goals Statement return home to baseline Additional Occupational Profile Info/Pertinent History of Current Problem Jocelin Garg is a 37 year old female with PMH including GERD and prior post- operative ileus now s/p extension of PISF T4-10 with SPOs on 10/[address] De Oliveira Precautions/Limitations spinal precautions General Observations On RA, alert Cognitive Status Examination Cognitive Comment No cognitive concerns Sensory Examination Sensory Comments No N/T noted Pain Assessment Patient Currently in Pain Yes, see Vital Sign flowsheet Mobility Bed Mobility Bed mobility skill: Sit to supine;Bed mobility skill: Supine to sit Bed Mobility Skill: Sit to Supine Level of [place]: Sit/Supine stand-by assist Bed Mobility Skill: Supine to Sit Level of [place]: Supine/Sit stand-by assist Transfer Skill: Bed to Chair/Chair to Bed Level of [place]: Bed to Chair stand-by assist Assistive Device - Transfer Skill Bed to Chair Chair to Bed Rehab Eval standard walker Transfer Skill: Sit to Stand Level of [place]: Sit/Stand stand-by assist Assistive Device for Transfer: Sit/Stand standard walker Transfer Skill: Toilet Transfer Level of [place]: Toilet stand-by assist Upper Body Dressing Level of [place]: Dress Upper Body independent Lower Body Dressing Level of [place]: Dress Lower Body stand-by assist Toileting Level of [place]: Toilet stand-by assist Grooming Level of [place]: Grooming independent Eating/Self Feeding Level of [place]: Eating independent Activities of Daily Living Analysis Impairments Contributing to Impaired Activities of Daily Living pain;post surgical precautions;ROM decreased Clinical Impression Criteria for Skilled Therapeutic Interventions Met evaluation only Risks and Benefits of Treatment have been explained. Yes Patient, Family & other staff in agreement with plan of care Yes [facility] AM-PAC TM 6 Clicks ?? 2016, Trustees of [facility], under license to [employer] ([employer] All rights reserved. 6 Clicks Short Forms Daily Activity Inpatient Short Form [facility]-PAC??? 6 Clicks Daily Activity Inpatient Short Form 1. Putting on and taking off regular lower body clothing? 4 - None 2. Bathing (including washing, rinsing, drying)? 4 - None 3. Toileting, which includes using toilet, bedpan or urinal? 4 - None 4. Putting on and taking off regular upper body clothing? 4 - None 5. Taking care of personal grooming such as brushing teeth? 4 - None 6. Eating meals? 4 - None Daily Activity Raw Score (Score out of 24.Lower scores equate to lower levels of function) 24 Total Evaluation Time Total Evaluation Time (Minutes) 17 Alanna Ying MD - 10/25/2017 7:14 AM CDT Orthopaedic Surgery Progress Note October 25, 2017 Subjective: No acute events overnight. Pain control intermittent - okay when she is in bed but worsewhen she is up OOB. Tolerating liquids. She was able to void twice yesterday but was bladder scannedthis AM for >400 ml with inability to void - will have straight cath. She thinks voiding is related to the IV medication. Hypoactive bowel sounds. Unfortunately, methylnaltrexone was given IV yesterday instead of IM - Pharmacy and IM aware and discussed with patient. Objective: BP 98/69 Pulse 88 Temp 101.1 ??F (38.4 ??C) (Oral) Resp 16 Ht 1.607 m (5' 3.27) Wt 68.9 kg (151 lb 14.4 oz) LMP 09/29/2017 (Exact Date) SpO2 98% BMI 26.68 kg/m2 Drain(s): 0 cc General: NAD, alert and oriented, cooperative with exam. Cardio: RRR, extremities wwp. Respiratory: Non-labored breathing. MSK: Dressing c/d/i. Drain with scant serosanguinous output. DP and PT 2+. SILT L3-S1 bilaterally. L2-3: Hip flexion L and R 5/5 strength L4: Knee extension L and R 5/5 strength L5: Foot / EHL dorsiflexion L and R 5/5 strength S1: Plantarflexion and eversion L and R 5/5 strength Labs: Hgb 10.2 Plts 248 Assessment and Plan: Jocelin Garg is a 37 year old female with PMH including GERD and prior post-operative ileus now s/p extension of PISF T4-10 with SPOs on 10/[address] De Oliveira. Orthopaedic Surgery Primary Hx of Ileus: Bowel regimen with scheduled Miralax and Sennakot. Methylnaltrexone ordered. Continue to monitor. Urinary retention: Was able to void x 2 after Florez catheter removed. Straight cath required this AMfor retention. Likely related to narcotic medication. Continue to monitor. May require florez catheter replacement if requires straight cath x 3. Activity: Up with assist until independent. No excessive bending or twisting. No lifting >10 lbs x 6 weeks. No Francie lift for transfers. Weight bearing status: WBAT. Pain management: Transition from IV to PO as tolerated. Antibiotics: Ancef x 24 hours - completed. Diet: Begin with clear fluids and progress diet as tolerated. DVT prophylaxis: SCDs only. No chemical DVT ppx needed at discharge. Imaging: XR Upright Spine AP/Lateral PTDC - ordered. Labs: Hgb POD#1-3. Bracing/Splinting: None. Dressings: Keep Aquacel c/d/i x 7 days. Drains: Will discontinue today. Physical Therapy/Occupational Therapy: Eval and treat. Consults: IM. Follow-up: Clinic with Dr. De Oliveira in 6 weeks. Disposition: Pending progress with therapies, pain control on orals, and medical stability, anticipate discharge to home on POD #4-5. Alanna Ying MD Orthopaedic Surgery Resident, PGY-4 Pager: For questions about this patient, please attempt to contact me at my pager prior to contacting the Orthopaedic Surgery resident elementary school professional. Thank you! Sunni Otoole MD - 10/24/2017 10:41 AM CDT Fiance in room Last night nursing notes reviewed No cp No sob No fever No chills No nausea No vomiting No loss of consciousness Seen with RN Vital signs: Temp: 98.4 ??F (36.9 ??C) Temp src: Oral BP: 103/54 Pulse: 88 Heart Rate: 92 Resp: 20 SpO2: 95 % O2 Device: None (Room air) Oxygen Delivery: 6 LPM Height: 160.7 cm (5' 3.27) Weight: 68.9 kg (151 lb 14.4 oz) Estimated body mass index is 26.68 kg/(m^2) as calculated from the following: Height as of this encounter: 1.607 m (5' 3.27). Weight as of this encounter: 68.9 kg (151 lb 14.4 oz). PERR, EOMI Neck ; supple. No JVD . No TM Chest ; clear bilaterally , no rales , or rhonchi CVS ; RRR, no m/r/g . S1 and S2. GI ; soft abdomen , non tender , BS positive. Neuro ; alert and oriented .No facial asymmetry . No pronator drift , ROUTINE IP LABS (Last four results) BMP Recent Labs Lab 10/24/17 0705 NA 144 POTASSIUM 3.6 CHLORIDE 110* THOR 7.6* CO2 27 BUN 6* CR 0.74 GLC 99 CBC Recent Labs Lab 10/24/17 0705 WBC 8.8 RBC 4.04 HGB 10.2* HCT 32.2* MCV 80 MCH 25.2* MCHC 31.7 RDW 13.3 PLT 235 INRNo lab results found in last 7 days. A/P ; Jocelin Alejo Irma Garg is a 37 year old female admitted on 10/23/2017 for spinal Sx ?? 1) Extension Of Fusion Thoracic 4-Thoracic 10, Rivera Khan Osteotomies Thoracic 6-10 . Date of surgery 10/23/18 Pain per ortho DVT prophylaxis, Abx and wound care as per primary team. Intensive spirometry to prevent atelectasis ?? 2) Allergies- restart flonase . And add pseudoephedrine per patient request ?? 3) h/o Anxiety- says take ativan sparingly, has not used for >1 month . Last prescription 2 monthago - on bid 0.5 BID prn here ?4) hx pof post op ileus in past . On Relistor started 10/24 and Pericolace . Add miralax Discuss with ortho LAND ACQUISITION ANALYST and care team rounds Tala Roche Pt, PT - 10/24/2017 10:19 AM CDT 10/24/17 1004 Quick Adds Type of Visit Initial PT Evaluation Engineer Process Engineer Process Present no Language [place]er Living Environment Lives With child(gabino), dependent;significant other (pt mother will be able to help out) Living Arrangements house Home Accessibility stairs within home;stairs to enter home;stairs (2 railings present) Number of Stairs to Enter Home 1 (small step to get into the home) Number of Stairs Within Home 10 Stair Railings at Home outside, present at both sides Transportation Available family or friend will provide;car Living Environment Comment Pt reported having a flight of stairs down to her bedroom. Self-Care Dominant Hand right Usual Activity Tolerance good Current Activity Tolerance moderate Regular Exercise no Equipment Currently Used at Home none Activity/Exercise/Self-Care Comment Pt reported being independent with all ADLs at baseline. Functional Level Prior Ambulation 0-->independent Transferring 0-->independent Toileting 0-->independent Bathing 0-->independent Dressing 0-->independent Eating 0-->independent Communication 0-->understands/communicates without difficulty Swallowing 0-->swallows foods/liquids without difficulty Cognition 0 - no cognition issues reported Fall history within last six months no Which of the above functional risks had a recent onset or change? ambulation;transferring Prior Functional Level Comment Pt was independent with all functional mobility at baseline. General Information Onset of Illness/Injury or Date of Surgery - Date 10/23/17 Referring Physician Myles De Oliveira MD Patient/Family Goals Statement Pt would like to be able to get back to work. Pertinent History of Current Problem (include personal factors and/or comorbidities that impact the POC) Pt is a 37 y/o female s/p PISF T4-10 with SPO. PMH includes GERD and post-op ileus. Precautions/Limitations fall precautions;spinal precautions (No brace needed. ) Weight-Bearing Status - LUE full weight-bearing Weight-Bearing Status - RUE full weight-bearing Weight-Bearing Status - LLE weight-bearing as tolerated Weight-Bearing Status - RLE weight-bearing as tolerated General Observations Pt supine in bed at start of PT session with significant other in the room. Nursing stopping fluids at start of PT eval, only has florez and hemovac. Cognitive Status Examination Orientation other (see comments) (Not tested) Level of Consciousness other (see comments);alert Follows Commands and Answers Questions 100% of the time;able to follow multistep instructions (Pt is anxious) Personal Safety and Judgment intact Memory intact Pain Assessment Patient Currently in Pain Yes, see Vital Sign flowsheet Integumentary/Edema Integumentary/Edema other (describe) Integumentary/Edema Comments Incision not observed due to dressing in place. Posture Posture Not impaired Range of Motion (ROM) ROM Comment Pt demonstrated functional LE ROM with all bed mobility, transfers, and gait. Strength Strength Comments LE strength not formally tested but pt demonstrated functional strength for bed mobility, transfers, and gait. Bed Mobility Bed Mobility Comments Pt demonstrated log rolling with SBA x 1 and use of bed rail. Sidelying to/from sitting with HOB elevated, bed rail, and SBA x 1. Pt is able to scoot/reposition in bed with SBA x 1. Transfer Skills Transfer Comments Sit to/from standing with FWW and CGA x 1. Gait Gait Comments Pt ambulated 150' with FWW and CGA x 1. Balance Balance Comments Pt demonstrated good sitting balance at EOB and fair standing balance with FWW. Sensory Examination Sensory Perception Comments Pt has no c/o numbness/tingling along bilateral LEs. General Therapy Interventions Planned Therapy Interventions bed mobility training;strengthening;transfer training;gait training;home program guidelines Intervention Comments Bed mobility, transfers, gait, and LE strengthening initiated. Clinical Impression Criteria for Skilled Therapeutic Intervention yes, treatment indicated PT Diagnosis Decreased strength and impaired functional mobility. Influenced by the following impairments Post-op pain, weakness, and s/p extension of PISF T4-10 withSPO. Functional limitations due to impairments Impaired bed mobility, transfers, and gait. Clinical Presentation Stable/Uncomplicated Clinical Presentation Rationale Pt is a 37 y/o female s/p PISF T4-10 with SPO. Pt does not have any signficant PMH or co-morbidities that will impact PT POC. Pt was independent with all ADLs/mobility prior to surgery. Clinical Decision Making (Complexity) Low complexity Therapy Frequency` 2 times/day Predicted Duration of Therapy Intervention (days/wks) 3 days Anticipated Equipment Needs at Discharge other (see comments) (Will continue to assess, FWW or SEC. ) Anticipated Discharge Disposition Home with Assist Risk & Benefits of therapy have been explained Yes Patient, Family & other staff in agreement with plan of care Yes [facility] AM-PAC TM 6 Clicks ?? 2016, Trustees of [facility], under license to [employer] All rights reserved. 6 Clicks Short Forms Basic Mobility Inpatient Short Form [facility] AM-PAC??? 6 Clicks V.2 Basic Mobility Inpatient Short Form 1. Turning from your back to your side while in a flat bed without using bedrails? 4 - None 2. Moving from lying on your back to sitting on the side of a flat bed without using bedrails? 4 - None 3. Moving to and from a bed to a chair (including a wheelchair)? 3 - A Little 4. Standing up from a chair using your arms (e.g., wheelchair, or bedside chair)? 3 - A Little 5. To walk in hospital room? 3 - A Little 6. Climbing 3-5 steps with a railing? 3 - A Little Basic Mobility Raw Score (Score out of 24.Lower scores equate to lower levels of function) 20 Total Evaluation Time Total Evaluation Time (Minutes) 8 Alanna Ying MD - 10/24/2017 7:29 AM CDT Orthopaedic Surgery Progress Note October 24, 2017 Subjective: No acute events overnight. Pain control moderate. Nausea yesterday prevented her from eating or getting OOB - improved this AM. Florez catheter. Denies new n/t. Objective: BP 103/54 Pulse 88 Temp 98.4 ??F (36.9 ??C) (Oral) Resp 20 Ht 1.607 m (5' 3.27) Wt 68.9 kg (151 lb 14.4 oz) LMP 09/29/2017 (Exact Date) SpO2 95% BMI 26.68 kg/m2 Drain(s): Minimal. General: NAD, alert and oriented, cooperative with exam. Cardio: RRR, extremities wwp. Respiratory: Non-labored breathing. MSK: Dressing c/d/i. Drain with serosanguinous output. DP and PT 2+. SILT L3-S1 bilaterally. L2-3: Hip flexion L and R 5/5 strength L4: Knee extension L and R 5/5 strength L5: Foot / EHL dorsiflexion L and R 5/5 strength S1: Plantarflexion and eversion L and R 5/5 strength Labs: Hgb 10.2 Plts 235 Cr 0.74 Assessment and Plan: Jocelin Garg is a 37 year old female with PMH including GERD and prior post-operative ileus now s/p extension of PISF T4-10 with SPOs on 10/[address] De Oliveira. Orthopaedic Surgery Primary Activity: Up with assist until independent. No excessive bending or twisting. No lifting >10 lbs x 6 weeks. No Francie lift for transfers. Weight bearing status: WBAT. Pain management: Transition from IV to PO as tolerated. Antibiotics: Ancef x 24 hours. Diet: Begin with clear fluids and progress diet as tolerated. DVT prophylaxis: SCDs only. No chemical DVT ppx needed at discharge. Imaging: XR Upright Spine AP/Lateral PTDC - ordered. Labs: Hgb POD#1-3. Bracing/Splinting: None. Dressings: Keep Aquacel c/d/i x 7 days. Drains: Document output per shift, will be discontinued at Orthopedic Surgery discretion. Florez catheter: Discontinue POD#1. Physical Therapy/Occupational Therapy: Eval and treat. Consults: IM. Follow-up: Clinic with Dr. De Oliveira in 6 weeks. Disposition: Pending progress with therapies, pain control on orals, and medical stability, anticipate discharge to home on POD #4-5. Alanna Ying MD Orthopaedic Surgery Resident, PGY-4 Pager: For questions about this patient, please attempt to contact me at my pager prior to contacting the Orthopaedic Surgery resident elementary school professional. Thank you! documented in this encounter Consult Notes Michael Hilario MD - 10/23/2017 3:54 PM CDTAssociated Order(s): INTERNAL MEDICINE ADULT IP CONSULT FOR [facility] INTERNAL MEDICINE CONSULTATION REQUESTING PHYSICIAN: Myles De Oliveira MD REASON FOR CONSULTATION: For recommendations for medical comorbidities. Assessment Jocelin Garg is a 37 year old female admitted on 10/23/2017 for spinal Sx 1) Extension Of Fusion Thoracic 4-Thoracic 10, Rivera Khan Osteotomies Thoracic 6-10 post op D# 0 Hemodynamics: stable - continue on IV fluids, until adequate PO. Analgesia: adequate , on FLIGHT SERVICE AGENT Antiemetics: as per protocol. If does not work may need low dose ativan DVT prophylaxis, Abx and wound care as per primary team. Intensive spirometry to prevent atelectasis 2) Allergies- ct flonase 3) h/o Anxiety- says take ativan sparingly, has not used for >1 month . Last prescription 2 monthago - monitor closely Thank you for letting us get involved in care of Ms Solis. Please page with any questions. Michael Hilario MD (Pager- [phone]) Internal Medicine/ Hospitalist CHIEF COMPLAINT: 37 year old year old female admitted for a chief complaint of S/P spinal fusion [Z98.1] HISTORY OF PRESENT ILLNESS: 37 year old year old female With h/o GERD, Anxiety, scoliosis admitted on 10/23/2017 for Spine Sx (for further details for indication of surgery and operative note, please refer to Myles De Oliveira MDnote) . Had 310cc EBL, . no documented hypotension/ hypoxemia intra/post operative. Currently: Denies any chest pain, shortness of breath or palpitations.C/o nausea. Denies any dysuriaor frequency of urination. No h/o CAD PAST MEDICAL HISTORY: Past Medical History: Diagnosis Date ??? GERD (gastroesophageal reflux disease) ??? Scoliosis Past Surgical History: Procedure Laterality Date ??? C SPINAL FUSION,ANT,EA ADNL LEVEL 2010 Family History Problem Relation Age of Onset ??? Family History Negative Other Social History Social History ??? Marital status: Single Spouse name: N/A ??? Number of children: N/A ??? Years of education: N/A Social History Main Topics ??? Smoking status: Never Smoker ??? Smokeless tobacco: Never Used ??? Alcohol use No ??? Drug use: No ??? Sexual activity: Yes Partners: Male Other Topics Concern ??? None Social History Narrative ALLERGIES: Allergies Allergen Reactions ??? Seasonal Allergies HOME MEDICATIONS: No current facility-administered medications on file prior to encounter. Current Outpatient Prescriptions on File Prior to Encounter: fluticasone (FLONASE) 50 MCG/ACT spray [place] 1-2 sprays into both nostrils daily (Patient taking differently: [place]vier 1-2 sprays into both nostrils as needed ) ibuprofen (ADVIL/MOTRIN) 600 MG tablet Take 1 tablet (600 mg) by mouth every 6 hours as needed for other (cramping) (Patient taking differently: Take 600 mg by mouth as needed for other (cramping) ) REVIEW OF SYSTEMS: A comprehensive 10-point review of systems was done and was found negative unlessmentioned in the HPI. PHYSICAL EXAMINATION: Vitals: BP 115/77 (BP Location: Right arm) Pulse 88 Temp 98.6 ??F (37 ??C) (Oral) Resp 18 Ht1.607 m (5' 3.27) Wt 68.9 kg (151 lb 14.4 oz) LMP 09/29/2017 (Exact Date) SpO2 100% BMI 26.68 kg/m2 BMI= Body mass index is 26.68 kg/(m^2). GENERAL: Pleasant HEENT: PERRLA. Sclerae anicteric. Oral mucosa moist. oral hygiene fair. NECK: Supple. No thyromegaly. CARDIOVASCULAR: Normal S1 and S2. No murmurs, rubs or gallops. RESPIRATORY: Normal vesicular breath sounds. No wheezing or crackles. ABDOMEN: Soft, nontender. No guarding, rigidity or rebound. MUSCULOSKELETAL: - as per ortho EXTREMITIES: no edema NEUROLOGIC: Cranial nerves II-XII are grossly intact. Alert and oriented x3. SKIN: No petechia, purpura or rash. HEMATOLOGIC: No gross lymphadenopathy. LABORATORY DATA: Results for JOCELIN PINEDO ( ) as of 10/23/2017 15:54 Ref. Range 09/29/2017 12:03 Sodium Latest Ref Range: 133 - 144 mmol/L 141 Potassium Latest Ref Range: 3.4 - 5.3 mmol/L 3.6 Chloride Latest Ref Range: 94 - 109 mmol/L 106 Carbon Dioxide Latest Ref Range: 20 - 32 mmol/L 28 Urea Nitrogen Latest Ref Range: 7 - 30 mg/dL 12 Creatinine Latest Ref Range: 0.52 - 1.04 mg/dL 0.85 GFR Estimate Latest Ref Range: >60 mL/min/1.7m2 76 GFR Estimate If Black Latest Ref Range: >60 mL/min/1.7m2 >90 Calcium Latest Ref Range: 8.5 - 10.1 mg/dL 8.8 Anion Gap Latest Ref Range: 3 - 14 mmol/L 7 Hemoglobin A1C Latest Ref Range: 0 - 5.6 % 5.3 Glucose Latest Ref Range: 70 - 99 mg/dL 90 WBC Latest Ref Range: 4.0 - 11.0 10e9/L 4.8 Hemoglobin Latest Ref Range: 11.7 - 15.7 g/dL 12.5 Hematocrit Latest Ref Range: 35.0 - 47.0 % 39.4 Platelet Count Latest Ref Range: 150 - 450 10e9/L 332 RBC Count Latest Ref Range: 3.8 - 5.2 10e12/L 4.87 MCV Latest Ref Range: 78 - 100 fl 81 MCH Latest Ref Range: 26.5 - 33.0 pg 25.7 (L) MCHC Latest Ref Range: 31.5 - 36.5 g/dL 31.7 RDW Latest Ref Range: 10.0 - 15.0 % 13.8 INR Latest Ref Range: 0.86 - 1.14 1.02 documented in this encounter Nursing Notes René Esposito RN - 10/23/2017 12:29 PM CDT PACU to Inpatient Nursing Handoff Patient Jocelin Garg is a 37 year old female who speaks Hong Konger. Procedure Procedure(s): Extension Of Fusion Thoracic 4-Thoracic 10, Rivera Khan Osteotomies Thoracic 6-10 - Wound Class: I-Clean Surgeon(s) Primary: Myles De Oliveira MD Assisting: Huong Stock PA-C Allergies Allergen Reactions ??? Seasonal Allergies Isolation No active isolations Past Medical History has a past medical history of GERD (gastroesophageal reflux disease) and Scoliosis. She also has nopast medical history of Complication of anesthesia. Anesthesia General Dermatome Level Preop Meds acetaminophen (Tylenol) - time given: 0625 celecoxib (Celebrex) - time given: 0625 gabapentin (Neurontin) - time given: 0625 Nerve block Not applicable Intraop Meds dexamethasone (Decadron) fentanyl (Sublimaze): 250 mcg total hydromorphone (Dilaudid): 0.5 mg total Local Meds Yes Antibiotics cefazolin (Ancef) - last given at 0937 Pain Patient Currently in Pain: unable to assess PACU meds hydromorphone (Dilaudid): 0.5 mg (total dose) last given at 1245 FLIGHT SERVICE AGENT / epidural Yes. FLIGHT SERVICE AGENT - hydromorphone (Dilaudid) Capnography Yes Telemetry ECG Rhythm: Normal sinus rhythm Inpatient Grease Maker Ordered? No Labs Glucose Lab Results Component Value Date GLC 90 09/29/2017 Hgb Lab Results Component Value Date HGB 12.5 09/29/2017 INR Lab Results Component Value Date INR 1.02 09/29/2017 PACU Imaging Not applicable Wound/Incision Incision/Surgical Site 10/23/17 Back (Active) Incision Assessment [facility] 10/23/2017 11:18 AM Closure Approximated;Liquid bandage 10/23/2017 11:18 AM Dressing Intervention Clean, dry, intact;New dressing applied 10/23/2017 11:18 AM Number of days:0 CMS Peripheral Neurovascular WDL: WDL (10/23/17602) All Extremities Temperature: warm (10/23/17602) All Extremities Color: no discoloration (10/23/17602) LLE Sensation: tingling present (intermittent and on top of toes) (10/23/17602) RLE Sensation: tingling present (intermittent and on top of toes) (10/23/17602) Equipment Not applicable Other LDA IV Access Peripheral IV 10/23/17 Left Lower forearm (Active) Site Assessment [facility] 10/23/2017 12:07 PM Line Status Saline locked 10/23/2017 12:07 PM Phlebitis Scale 0-->no symptoms 10/23/2017 12:07 PM Infiltration Scale 0 10/23/2017 12:07 PM Infiltration Site Treatment Method None 10/23/2017 6:48 AM Extravasation? No 10/23/2017 6:48 AM Number of days:0 Peripheral IV 10/23/17 Right Lower forearm (Active) Site Assessment [facility] 10/23/2017 12:07 PM Line Status Infusing 10/23/2017 12:07 PM Phlebitis Scale 0-->no symptoms 10/23/2017 12:07 PM Infiltration Scale 0 10/23/2017 12:07 PM Number of days:0 Blood Products Not applicable EBL 310 mL Intake/Output Date 10/23/17 0700 - 10/24/17 0659 Shift 4169-5711 1263-3086 0646-8245 24 Hour Total I N T A K E I.V. 1450 1450 Shift Total (mL/kg) 1450 (21.05) 1450 (21.05) O U T P U T Urine 100 100 Blood 310 310 Shift Total (mL/kg) 410 (5.95) 410 (5.95) Weight (kg) 68.9 68.9 68.9 68.9 Drains / Florez Closed/Suction Drain Back Accordion 10 Tamazight (Active) Site Description [facility] 10/23/2017 12:07 PM Dressing Status Normal: Clean, Dry & Intact 10/23/2017 12:07 PM Drainage Appearance Normal 10/23/2017 12:07 PM Number of days:0 Urethral Catheter Latex 16 fr (Active) Tube Description [facility] 10/23/2017 12:07 PM Collection Container Standard 10/23/2017 12:07 PM Securement Method Securing device (Describe) 10/23/2017 12:07 PM Number of days:0 Time of void PreOp Void Prior to Procedure: 0600 (10/23/17 0606) PostOp Diapered? No Bladder Scan PO tolerating sips Vitals B/P: 121/85 T: 97.3 ??F (36.3 ??C) Temp src: Axillary P: Pulse: 106 (10/23/17 0544) R: 28 O2: SpO2: 100 % O2 Device: Simple face mask (10/23/17 1207) Oxygen Delivery: 6 LPM (10/23/17 1207) Family/support present significant other Patient belongings Patient Belongings: clothing;shoes Disposition of Belongings: Kept with patient Patient transported on cart DC meds/scripts (obs/outpt) Not applicable Inpatient Pain Meds Released? Yes Special needs/considerations None Tasks needing completion None René Esposito, RN ASCOM [id number] documented in this encounter Miscellaneous Notes Plan of Care - Steffanie Kililan RN - 10/27/2017 2:12 PM CDT Problem: Patient Care Overview Goal: Plan of Care/Patient Progress Review Pt. discharged at 1415 via automobile to home. Pt. was accompanied by Mother, and left with personalbelongings. Prior to discharge, PIV was removed. Pt. received complete discharge paperwork and new medications as filled by discharge pharmacy. Pt. was given times of last dose for all discharge medications in writing on discharge medication sheets. Discharge teaching included new medication, pain management, activity restrictions, dressing changes, and signs and symptoms of infection. Pt. to follow up with Dr. De Oliveira in clinic on December 13, 2017. Pt. had no further questions at the time of discharge and no unmet needs were identified. Plan of Care - Rhonda Sheppard RN - 10/27/2017 7:45 AM CDT Problem: Patient Care Overview Goal: Plan of Care/Patient Progress Review A/O x4 pain is tolerable with oxycodone, robaxin and tylenol. CMS and neuro's are intact. Dressing to spine is c/d/i. Up independently to the bathroom. Still has some hesitancy and straining to void. PVR was low. Ativan given x 1 for anxiety. No further loose stools. Significant other in room most of the night. Cont to assess. Call light in reach . Plan of Care - Emma Morales RN - 10/26/2017 9:20 PM CDT Problem: Surgery Nonspecified (Adult) Goal: Signs and Symptoms of Listed Potential Problems Will be Absent, Minimized or Managed (Surgery Nonspecified) Signs and symptoms of listed potential problems will be absent, minimized or managed by discharge/transition of care (reference Surgery Nonspecified (Adult) CPG). Outcome: Improving C/o nausea , emesis x1, IV Reglan and Zofran ODT given. Pt tried prune juice and Had a soft formed BM x1 , and then watery diarrhea x2, All evening lewis meds held. Straight cath x1, Voided urine good amount ,urine amount 300ml, 200ml . PVR 60ml Tolerates full liquid diet. Drinking PO fluid with encouragement. Up independently uses bathroom. Declined to ambulate hallway due to nausea. Ativan 0.5mg PO given x1 for anxiety. Dressing CDI, no change in CMS/Neuros. Will continue to monitor Plan of Care - Huong Adams RN - 10/26/2017 3:09 PM CDT Problem: Patient Care Overview Goal: Plan of Care/Patient Progress Review Outcome: No Change A&Ox4, VSS, LS clear, BS active- pt tolerating a full liquid diet, passing flatus, no BM since 10-23, suppository administered with no results yet. miralax and senna increased. CMS/Neuros intact, ptdenies numbness/tingling. Denies chest pain/SOB. C/O of slight nausea with ambulation. PIV SL. Pt having difficulties voiding, encouraged double void- pt has very high anxiety about not being able to empty her bladder, pt voiding moderate amounts however is still retaining. Pt's last voided 150mL + (urine missed the hat), PVR 107. Posterior dressing CDI. Pain managed with Oxycodone, pt agreed to takea lower dose this afternoon to avoid any further complications with bowel and bladder- see e MAR. Ptis able to make needs known, ambulates in room independently- steady on feet, continue with POC. UA sent to lab, results pending. Plan of Care - Jocelin Mayes, PT - 10/26/2017 10:33 AM CDT Problem: Patient Care Overview Goal: Plan of Care/Patient Progress Review Physical Therapy Discharge Summary Reason for therapy discharge: All goals and outcomes met, no further needs identified. Progress towards therapy goal(s). See goals on Care Plan in [facility] electronic health record for goal details. Goals met Therapy recommendation(s): Continue home exercise program. Plan of Care - Jocelin Mayes, PT - 10/26/2017 10:32 AM CDT Problem: Patient Care Overview Goal: Plan of Care/Patient Progress Review Director [facility] PT Patient plan for discharge: Home Current status: Pt demonstrates mod I with bed mobility, sit<>stand transfers and amb 350 ft with no assistive device and SBA. Pt ascended/descended 3 stairs x3 with 2 HRs and SBA, demonstrating good stability with gait and stairs. Pt has met all PT goals and pt has no further concerns about functional mobility Barriers to return to prior living situation: none Recommendations for discharge: Home with PRN assist from SO/mother Rationale for recommendations: Pt has met all PT goals and safe to DC home. Entered by: Jocelin Mayes 10/26/2017 10:30 AM Plan of Care - Rhonda Sheppard, RN - 10/26/2017 2:15 AM CDT Problem: Patient Care Overview Goal: Plan of Care/Patient Progress Review A/O x 4 pain is tolerable with oxycodone and robaxin. Up independently with walker to the bathroom. Cont to have urinary retention and intermittently being unable to void. Straight cathed just after midnight for 325. Dressing in c/d/i. CMS and neuro's are intact. Significant other is in room. Able to make needs known. Cont to assess. Plan of Care - Emma Morales RN - 10/26/2017 12:35 AM CDT Problem: Surgery Nonspecified (Adult) Goal: Signs and Symptoms of Listed Potential Problems Will be Absent, Minimized or Managed (Surgery Nonspecified) Signs and symptoms of listed potential problems will be absent, minimized or managed by discharge/transition of care (reference Surgery Nonspecified (Adult) CPG). Outcome: No Change HR 100's otherwise VSS and afebrile. Anxious and having lots of questions about her progress. Straight cath x1, Started voiding urine, PVR 206ml. Encouraged double voiding. C/o nausea but no vomiting. Denies reflux. Scopolamine patch was off per pt's request. Zofran ODT, compazine pill, Aromatherapy given for nausea. Pt tolerates full liquid diet. + flatus but still feels gassy. Abdomen soft and distended. BS active.no BM since surgery. Dressing to back CDI. Up with SBA or independently, ambulated hallway with PT well. Pain tolerably managed with oxycodone 15mg every 3hrs. Pt refused ICE pack. Will continue to monitor . Plan of Care - Patricia Gonsalez RN - 10/25/2017 3:35 PM CDT Problem: Patient Care Overview Goal: Plan of Care/Patient Progress Review Outcome: No Change Alert and oriented. Anxious at times, given prn ativan and reassurance given as needed. VSS. C/o back pain managed with prn oxycodone, robaxin, and tylenol (see eMAR). CMS/neuros intact. Incision dressing CDI. HV drain removed today. Lungs clear, encouraged IS use. Pt unable to void today, straight cath'd for 500 mL at 1200. Bowel sounds present but pt denies passing flatus yet. Given scheduled bowelmeds and encouraged pt to increase water and walking. Tolerating clear liquid diet. C/o nausea, declined zofran, no emesis. PIV saline locked. Up in room fairly independently with walker, steady on feet. Moves independently in bed. Significant other here in morning. Able to make needs known. Continue with POC. Plan of Care - Tala Roche Pt, PT - 10/25/2017 10:59 AM CDT Problem: Patient Care Overview Goal: Plan of Care/Patient Progress Review Director [facility] PT Patient plan for discharge: Home with family for assist. Current status: Pt demonstrated supine to sitting at EOB with HOB elevated and SBA x 1. Sit to/from standing with FWW and SBA x 1. Pt ambulated 150' with FWW and SBA x 1, steady gait. Pt became very anxious during PT session due to not being able to void. Pt declined stair training this AM. Barriers to return to prior living situation: No barriers to discharge hme. Recommendations for discharge: Home with family for assist Rationale for recommendations: Pt has no home PT needs. Entered by: Tala Roche 10/25/2017 10:57 AM Plan of Care - Katy Denny, GRACIELA - 10/25/2017 8:36 AM CDT Problem: Patient Care Overview Goal: Plan of Care/Patient Progress Review OT: OT eval completed. Patient plans to DC home with assist from SO and when SO is at work patient'smother will assist. Patient and SO aware of spinal precautions, bed mobility, ambulation 200' with walker, LB dressing with figure four technique. Patient reports having a walk-in shower and does not plan on needing shower chair. Patient has a 7 month old at home, patient asking if she can lift baby but SO said no as baby is 20 pounds. No further OT needs. Plan of Care - Rhonda Sheppard, RN - 10/25/2017 8:15 AM CDT Problem: Patient Care Overview Goal: Plan of Care/Patient Progress Review Pt up with SBA and walker. Ambulated into bathroom and voided x 2 in the toilet, this AM was unable to void and needed to be srtaight cathed for 400. Bowel sounds hypoactive, no flatus yet. Zofran given for nausea,but no emesis noted. Dressing to spin c/d/i. h-vac patent with no output. CMS and neuro's are intact. Pain is tolerable with 15 mg oxycodone, but doesn't last for the entire 3 hours so IVP dilaudid was given for breakthrough pain x 3. Robaxin also given for spasms. Warm packs given for muscle pain in the shoulder area. Able to make needs known, cont to assess. Plan of Care - Chuyita Haji RN - 10/25/2017 1:09 AM CDT Problem: Patient Care Overview Goal: Plan of Care/Patient Progress Review Outcome: No Change VS: VSS. Lung sounds clear, using IS. BS remain hypoactive Output: Bladder scanned for 425, pt needed to be straight cathed due to inability to void, output 450. No BM, not passing gas. Pt voided at shift change. Activity: Ax1 with walker. Ambulated to bathroom multiple times throughout evening. Skin: Intact ex for incision Pain: Pain not controlled towards end of each dose of Oxycodone. Pt pain would begin to flair up after two hours of received oral medication. IV Pain meds used for break through pain. Neuro/CMS: Intact denies n/t Dressing(s): Aquacel from neck down to buttocks.Hemovac dressing CDI. Minimal amounts noted in Hemovac. Diet: Clear liquid diet, tolerating fairly. Had some nausea in the evening, Zofran given with relief. LDA: PIV SL. Hemovac patent and draining. Equipment: IV pole, PCD machine, and walker. Plan: Continue to monitor, pt able to make needs known, call light within reach. Additional Info: Pt very anxious throughout shift, board writer listened to pt's concerns and addressed each question. Provider Notification - Sunni Hernandez MD - 10/24/2017 2:53 PM CDT Patients methylnaltreoxone was given IV ( half dose ?) instead of s/c administration. Reviewed literature with pharmacist . Notified ortho . At this time monitor local site of infiltration and consider s/c dose tomorrow ( not sure how much went in IV ). Patient was notified and she verbalized understanding of event. Plan of Care - Lisa Warren RN - 10/24/2017 2:51 PM CDT Problem: Patient Care Overview Goal: Plan of Care/Patient Progress Review Outcome: Improving VS: VSS. LS clear encouraged IS. BS hypoactive. Output: Florez removed at 1130. Pt still to void. Florez was putting out large amounts yellow urine. Activity: A-1 with therapy and sat at EOB. Walker and gait belt. Independently repositioning in bed. Skin: Intact with ex of incision. and infiltrated IV in right wrist. IV removed and hot pack applied. Pain: Pain intolerable per pt had oxycodone dose increased to 10-15mg. Dilaudid FLIGHT SERVICE AGENT discontinued this am.Offered ice packs but pt declined. Neuro/CMS: Intact pt denies any numbness and tingling. Prior to surgery pt had intermittent tingling on top ofboth feet. Has since improved Dressing(s): Aquacel from neck down to buttocks.Hemovac dressing CDI. Minimal amounts noted in Hemovac. Diet: Clear liq. Still complaining of nausea and abdominal discomfort LDA: Hemovac, Aquacel dressing. CAPNO discontinued. PIV out. Tolerating PO fluids. Equipment: IV pole. PCD machine. Walker. Plan: TBD Additional Info: Pt very anxious. Multiple questions and requests. Pt IV removed after infiltration. Medication for bowels was given partially through iv instead of subcutaneous. MD and pharmacy notified of error. Wasfound to not have adverse effects but to continue to monitor site. Iv removed and hot pack applied. MD assessed pt and notified of issue. Pt now sleeping in bed. Fiance will return later tonight and spend the night Plan of Care - Tala Roche Pt, PT - 10/24/2017 10:32 AM CDT Problem: Patient Care Overview Goal: Plan of Care/Patient Progress Review [facility] PT Patient plan for discharge: Home with assist. Current status: PT evaluation completed. Pt demonstrated log rolling and sidelying to/from sitting with SBA x 1, use of bedrail. Sit to/from standing from EOB and chair with FWW and CGA x 1. Pt ambulated 150' with FWW and CGA x 1. Chair to bed transfer with FWW and CGA x 1. Barriers to return to prior living situation: Stairs Recommendations for discharge: Home with assist. Rationale for recommendations: No home PT needs. Entered by: Tala Roche 10/24/2017 10:29 AM Plan of Care - Rhonda Sheppard RN - 10/24/2017 3:09 AM CDT Problem: Patient Care Overview Goal: Plan of Care/Patient Progress Review A/O x 4. Increased FLIGHT SERVICE AGENT from 0.2 to 0.3 due to inadequate pain control. Pain improved with the increase in medication. Concerned about pain control because of not pushing button as much because of sleeping. Continues to have nausea issues when sitting up in bed, Zofran given. Scope patch in place. . Declined to sit at edge of bed. Reports that numbness in feet that was present prior to surgery has improved. CMS and neuro's are intact. Dressing to spine is c/d/i. H- vac is patent. Florez catheter has excellent output. Significant other at bedside. Call light is in reach. Cont to assess. 0645: Pt did tolerate the scheduled tylenol and sitting up in bed this AM w/o any report of nausea. Pt did report feeling itchy this am so 25 mg of benadryl was given. BP was 103/54 this AM. Encourageduse of incentive spirometer. Pt is fairly independent with bed mobiilty despite reports of pain withmoving. Needs lots of encouragement that post op goals are as expected and things like nausea and bowel sounds will improve. Pt concerned about bowel waking up due to having an ileus with the last spine surgery several years ago. Cont to assess. Plan of Care - Kyle Bernstein RN - 10/23/2017 11:08 PM CDT Problem: Patient Care Overview Goal: Plan of Care/Patient Progress Review Outcome: Therapy, progress toward functional goals is gradual VS: Stable no abnormalities reported. Note that BP tends to run low. No reports of SOB or chest pain. LS clear equal bilaterally, on room air. Output: Voids in florez catheter - patent. Last BM before surgery, not passing gas yet. Activity: Assist of 1 Skin: Intact Pain: Moderate. Manageable w/ FLIGHT SERVICE AGENT pump. Neuro/CMS: Intact, no numbness or tingling reported Dressing(s): Posterior back CDI Diet: Clear liquids, tolerating well. Equipment: CAPNO FLIGHT SERVICE AGENT pump IV's/Drains: PIV R hand infusing NS 100mL/hr and FLIGHT SERVICE AGENT pump Hemovac - 0ccs Florez - patent Plan: Continue to monitor Additional Info: Discontinue FLIGHT SERVICE AGENT pump POD #1 Discontinue florez POD #1 Pt is experiencing bouts of N&V - scope patch applied, L ear - Pt is very anxious a lot of the time, takes a lot of education and talking to calm pt down Significant other in room Plan of Care - Lisa Warren RN - 10/23/2017 3:25 PM CDT Problem: Patient Care Overview Goal: Plan of Care/Patient Progress Review Outcome: No Change VS: VSS. LS clear .CAPNO in place 98% RA. IPI-10 CO2-38 Output: Florez in place pt very anxious and complaining that she has a UTI already from the florez. Assured pt irritation can be from insertion. drianig pedro colored urine. BS hypoactive Activity: Pt A-1 rolls side to side. HOB up 30 degrees. Skin: Intact with ex of surgical incisions and hemovac replacement Pain: FLIGHT SERVICE AGENT dilaudid on and verified. Pt has discomfort in lower back. And bladder Neuro/CMS: Intact denies numbness and tingling. Prior to surgery pt had intermittently tingling in BL feet. Dressing(s): CDI Aquacel posterior from neck down to Buttocks. hemovac in place CDI. Diet: C.liq. Nausea Zofran given LDA: PIV left hand running LR and Dilaudid FLIGHT SERVICE AGENT. R hand piv SL. Hemovac in place and patent. Aquacel. Florez catheter. Equipment: IV pole, PCDs, FLIGHT SERVICE AGENT pump. CAPNO Plan: TBT Additional Info: Pt very anxious multiple requests for Uro stat lidocane for bladder discomfort and suspected UTI from florez insertion. Brief Op Note - Huong Stock PA-C - 10/23/2017 11:49 AM CDT Orthopaedic Brief Operative Note 10/23/2017 11:49 AM Patient: Jocelin Garg Pre-operative diagnosis: Scoliosis Kyphosis Post-operative diagnosis: Same Procedure: Procedure(s): Extension Of Fusion Thoracic 4-Thoracic 10, Rivera Khan Osteotomies Thoracic 6-10 - Wound Class: I-Clean Surgeon: Co-surgeon: Resident: Myles De Oliveira MD N/A None available Box Car Washer(s): Huong Stock PA-C Anesthesia: General Estimated blood loss: 310 ml Total IV fluids: (See anesthesia record) Total urine output: (See anesthesia record) Blood transfusion No transfusion was given during surgery Drains: Right upper back Hemovac Specimens: None Implants: See dictated operative report for full details Grafts: Autologous/allogenic bone for posterior fusion Findings: See dictated operative report for full details Complications: None Disposition: Stable and extubated to PACU Plan: Pain: Scheduled Tylenol, Dilaudid FLIGHT SERVICE AGENT, oxycodone PRN, Valium PRN Activity: Weight bearing as tolerated. No lifting >10 lbs. No excessive twisting or bending. Start physical therapy POD#1. Wound care: Dressing change as needed per Ortho Florez out on POD #1 Drains: Document output per shift Brace: N/A Abx: Ancef x 24 hours post op for surgical ppx Diet: Clear liquids and ADAT DVT ppx: Mechanical only Radiographs: Upright AP and lateral of the full spine prior to discharge Disposition: Admit to Ortho Spine. Expect d/c in 5-7 days. Huong Stock PA-C Pager: [phone] If no answer or after 4pm, please page the elementary [employer] professional ortho resident. Op Note - Myles De Oliveira MD - 10/23/2017 11:48 AM CDT Procedure Date: 10/23/2017 DATE OF PROCEDURE: 10/23/2017 PREOPERATIVE DIAGNOSIS: Thoracic hyperkyphosis above prior fusion. POSTOPERATIVE DIAGNOSIS: 1. Thoracic hyperkyphosis above his prior fusion. 2. Dislodged set plug T10 on right. 3. History of scoliosis and history of posterior spinal fusion. OPERATION PERFORMED: 1. Posterior spinal fusion thoracic 4 to thoracic 10 2. Segmental spinal instrumentation T4-T9 3. Reinsertion spinal instrumentation T10 4. Rivera-Khan osteotomies T6-7 through T9-10 5. Image guided surgery SURGEON: Myles De Oliveira Jr., MD AGENCY SERVICE COORDINATOR: Huong Stock PA-C. No qualified resident was available. She was necessary for assistance with positioning, exposure, instrumentation, osteotomies and closure. 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 She underwent approximately 10 years ago a posterior spinal fusion from T10 to L3. She initially did okay, but then developed symptoms and these were unacceptable to her. She had significant thoracic hyperkyphosis. Of note is her pelvic incidence was approximately 42 degrees, her lumbar lordosis was 66, and her thoracic kyphosis was 71. Her thoracic kyphosis should have been about 42 degrees plus or minus 10, and that she had hyperlordosis in her lumbar spine to accommodate the thoracic hyperkyphosis. Risks, benefits, alternative treatments and expected outcomes were extensively discussed with the patient. It was her strong desire to proceed. DESCRIPTION OF TECHNICAL PROCEDURE: The patient was brought to the operating room and underwent the induction of adequate general anesthesia, placement of a Florez catheter and neuro monitoring leads. She was then turned in position prone on a PS DEPT.s 4-general counselor frame. She was prepared and draped in the usual sterile fashion and a timeout was done confirming the site and type of surgery. She did receive prophylactic antibiotics and tranexamic acid. Baseline neuro monitoring was obtained and was evaluable. The previous incision was then extended cephalad and the spine progressively exposed. The instrumentation confirmed the appropriate level of dissection. It was noted that the top right set plug had dislodged from the instrumentation and was found in the soft tissue. Once the spine had been exposed, the spinous process tracking arc was attached to the spinous process of T9 and intraoperative 3D images obtained with the O- arm and transferred to the 1bib image-guided workstation. This was now used to place pedicle screws in a navigated fashion. All the screws were from the [email or web address]. These were titanium screws with cobalt chrome heads. All screws were multiaxial. They were placed by identifying the start point with navigation technology, creating a cortical defect dorsally, then creating a navigated tract, then a navigated tap, then navigated screw placement. The screws were placed in the following fashion at T9, 5.5 x 40 bilaterally; T8, 5.5 x 40 bilaterally; T7, 5.5 x 40 bilaterally; T6, 5.5 x 40 bilaterally; T5, 5.5 x 35 bilaterally, T4, 5.5x 35 bilaterally. Check spins were done. There were some screws that fully occupied the pedicle as expected, but these were all in good alignment and the neuro monitoring was stable. Next, attention was addressed to performing Rivera-Peralta osteotomies. These were done by resectingthe spinous process, the inferior articular facets, taking down the ligamentum flavum in the midline, then utilizing a 3 or 4 mm Kerrison and going out through the foramen bilaterally. All the bone wassaved for local bone graft material. These were done at T9-10, T8-9, T7-8, T6-7. Powdered Gelfoam and cottonoids were placed over these segments. The pedicle screws at T11 were removed and the pedicle screw on the left at T10 was replaced with a 5.5 x 40 mm Solera screw to replace the Legacy screw that was a mono axial and not quite at the right height for subsequent jim placement. Two axial connectors were selected and the indwelling rods were cut off after they had been bent up out of the way initially. They were cut off at the appropriate length and then the right-sided jim was seated as a correcting jim and temporarily cantilevered into place. Then the left-sided jim seated into place, then the right-sided jim cut to the appropriate length for the axial connector, then the axial connector locked into place. There was some residual scoliosis and this was corrected with coronal benders and both the left and right rods were connected into the axial connectors. Intraoperative stitched long images were obtained, which showed good correction of the slight scoliotic deformity as well as correction of the thoracic kyphosis. The instrumented segment preoperatively measured about 70 degrees and intraoperatively corrected down to about 44 degrees, so this was in the range of the correction that we desired. Of note, there was a small portion of the cut off piece of the jim that was seen in the softtissue on the imaging, and this was identified and removed. The wound was irrigated out copiously, the posterior elements decorticated. Local bone graft was used across the osteotomy sites and then a total of 60 mL of bone graft was used to perform a posterior and posterolateral fusion from T4 to T10.The thoracolumbar fascia was then reapproximated with #1 interrupted sutures then #1 runner to oversew it. A gram of vancomycin placed superficial to this, an 1/8-inch Hemovac drain placed superficial to fascia and brought out proximally on the right. Then deep subcutaneous sutures were placed followed by a subcutaneous suture followed by intradermal sutures followed by benzoin and Steri-Strips then Aquacel dressing. Estimated blood loss for this case was 310 mL and out of an estimated blood volume of 4800 there was inadequate volume to process for Cell Saver return. The patient was then turned supine, extubated and transported to postanesthesia care unit in stable condition. We are not planning on any brace. We will utilize postoperative pain medications. Advance her to oral medications as soon as she tolerates and anticipate a 4 or 5-day stay. MYLES DE OLIVEIRA JR, MD MT: CC Name: JOCELIN PINEDO Account: [id number] : 1980 Procedure Date: 10/23/2017 Document: [id number] cc: Copy for Patient Keri Mitchell Beaulieu MD documented in this encounter Plan of Treatment Not on filedocumented as of this encounter Procedures Procedure Name Priority Date/Time Associated Comments Diagnosis XR THORACIC LUMBAR Routine 10/27/2017 11:18 Resul ts for this STANDING 2 VIEWS AM CDT procedure a re in the results section. ROUTINE UA WITH Routine 10/26/2017 2:40 PM S/P spinal fusion R esults for this MICROSCOPIC REFLEX TO CDT proced ure are in CULTURE the results section. CBC WITH PLATELETS Routine 10/26/2017 8:00 AM S/P spinal fusio n Results for this CDT procedure are i n the results section. GLUCOSE BY METER Routine 10/25/2017 8:34 AM Resul ts for this CDT procedure are i n the results section. CBC WITH PLATELETS Routine 10/25/2017 6:26 AM Res ults for this CDT procedure are i n the results section. BASIC METABOLIC PANEL Routine 10/24/2017 7:05 AM Results for this CDT procedure are i n the results section. CBC WITH PLATELETS Routine 10/24/2017 7:05 AM Res ults for this CDT procedure are i n the results section. GLUCOSE BY METER Routine 10/24/2017 2:17 AM Resul ts for this CDT procedure are i n the results section. XR SURGERY MADALYN Routine 10/23/2017 11:11 Results for this FLUORO LESS THAN 5 AM CDT procedure are in MIN the results section. FUSION, SPINE, 10/23/2017 7:40 AM Scoliosis Kyphosis THORACIC, 3 OR MORE CDT LEVELS, POSTERIOR APPROACH, USING OPTICAL TRACKING SYSTEM Special Needs ERASCell Saver notified 09/11 , confirmed @ 2:59 GLUCOSE BY METER Routine 10/23/2017 5:57 AM CDT R esults for this procedure are in the resu lts section. HCG QUALITATIVE URINE STAT 10/23/2017 5:50 AM CDT Results for this procedure are in the resu lts section. EMG - HIM SCAN 10/23/2017 12:00 AM CDT documented in this encounter Results XR Thor/Lumb Standing 2 Views (Scoli) (10/27/2017 11:18 AM CDT) Anatomical Region Laterality Modality C-spine, T-spine, L-spine Computed Radio graphy Specimen (Source) Anatomical Location Collection Method / Collectio n Time Received Time / Laterality Volume Impressions 10/27/2017 4:06 PM CDT Impression: 1. New postsurgical changes of T4-T9 pos terior fusion instrumentation, T10 reinsertion spinal instrumentation, and T11 pedicle screw removal. No evidence of hardware failure. 2. Normal appearance of the T12-L3 pedic le screws. 3. Positive global coronal imbalance, po ssibly related to patient positioning. 4. No global sagittal imbalance. QUINCY CORDOVA MD Narrative 10/27/2017 4:06 PM CDT Exam: Full body radiographs using EOS History: Post op instrumentation; Techniques: AP and lateral images of ful l body and secondary images of AP and lateral views of spine were submi tted for interpretation. Comparison: Radiographs 06/29/2017. Findings: 12 rib bearing vertebral bodies and 5 nina mbar type vertebral bodies are identified. Coronal Deformity: There is a no substantial curvature of t he thoracic or lumbar spine. Positive global coronal imbalance. Sagittal Vertical Tyler (A vertical line drawn from the center of C7 (dragan line) to the posterosuperior aspe ct of the S1 on sagittal plane): ??less than 4 cm Additional Findings: Postsurgical changes of T4-T9 posterior fusion instrumentation and reinsertion spinal instrumentation at T1 0. The T11 pedicle screws have been removed. There remain pedicle screw from T12-L3. Hardware is intact. Unchanged 4 mm ovoid metallic de nsity projecting in the subcutaneous tissues posterior to the T9 vertebral body. Nonobstructive bowel gas pattern. Clear chest. Procedure Note Quincy Cordova MD - 10/27/2017Formatti ng of this note might be different from the original. Exam: Full body radiographs using EOS History: Post op instrumentation; Techniques: AP and lateral images of ful l body and secondary images of AP and lateral views of spine were submi tted for interpretation. Comparison: Radiographs 06/29/2017. Findings: 12 rib bearing vertebral bodies and 5 nina mbar type vertebral bodies are identified. Coronal Deformity: There is a no substantial curvature of t he thoracic or lumbar spine. Positive global coronal imbalance. Sagittal Vertical Tyler (A vertical line drawn from the center of C7 (dragan line) to the posterosuperior aspe ct of the S1 on sagittal plane): less than 4 cm Additional Findings: Postsurgical changes of T4-T9 posterior fusion instrumentation and reinsertion spinal instrumentation at T1 0. The T11 pedicle screws have been removed. There remain pedicle screw from T12-L3. Hardware is intact. Unchanged 4 mm ovoid metallic de nsity projecting in the subcutaneous tissues posterior to the T9 vertebral body. Nonobstructive bowel gas pattern. Clear chest. Impression: 1. New postsurgical changes of T4-T9 pos terior fusion instrumentation, T10 reinsertion spinal instrumentation, and T11 pedicle screw removal. No evidence of hardware failure. 2. Normal appearance of the T12-L3 pedic le screws. 3. Positive global coronal imbalance, po ssibly related to patient positioning. 4. No global sagittal imbalance. QUINCY CORDOVA MD Huong Rosy Stock PA-C IMG DIAGNOSTIC IMAGING O RDERABLES (ABNORMAL) UA with Microscopic reflex to Culture (10/26/2017 2:40 PM CDT) Component Value Ref Test Analysis Performed At [facility] Range Method Time Signature Color Urine Light Yellow 10/26/2017 [facility] 3:08 PM CDT [facility] Appearance Urine Clear 10/26/2017 [facility] 3:08 PM T [facility] Glucose Urine Negative NEG^Nega 10/26/2017 [facility] tive 3:08 PM CDT [facility] mg/dL [facility] Bilirubin Urine Negative NEG^Nega 10/26/2017 [facility] tive 3:08 PM CDT [facility] Ketones Urine 10 (A) NEG^Nega 10/26/2017 [facility] t[facility] 3:08 PM T [facility] mg/dL [facility] Specific [place] 1.005 1.003 - 10/26/2017 [facility] Urine 1.035 3:08 PM T [facility] Blood Urine Moderate (A) NEG^Nega 10/26/2017 [facility] tive 3:08 PM T [facility] pH Urine 6.5 5.0 - 10/26/2017 [facility] 7.0 pH 3:08 PM [facility] Protein Albumin Negative NEG^Nega 10/26/2017 [facility] Urine tive 3:08 PM T [facility] mg/dL [facility] Urobilinogen Normal 0.0 - 10/26/2017 [facility] mg/dL 2.0 3:08 PM [facility] mg/dL [facility] Nitrite Urine Negative NEG^Nega 10/26/2017 [facility] tive 3:08 PM T [facility] Leukocyte Negative NEG^Nega 10/26/2017 [facility] Esterase Urine tive 3:08 PM T [facility] Source Unspecified 10/26/2017 [facility] Urine 2:54 PM [facility] WBC Urine 1 0 - 5 10/26/2017 [facility] /HPF 3:08 PM T [facility] RBC Urine 1 0 - 2 10/26/2017 [facility] /HPF 3:08 PM T [facility] Squamous <1 0 - 1 10/26/2017 [facility] Epithelial /HPF /HPF 3:08 PM T [facility] Specimen (Source) Anatomical Collection Method Collection Time Re ceived Time Location / / Volume Laterality Unspecified Urine URINE SPECIMEN 10/26/2017 2:40 10/26 2:54 OBTAINED BY CLEAN PM CDT PM CDT CATCH PROCEDURE / Unknown Sunni Hernandez MD LAB - URINE ORDERABLES Performing Organization Address City/[facility]/ZIP Code Phon e Number [address] [address] [facility] (ABNORMAL) CBC with platelets (10/26/2017 8:00 AM CDT) [facility] gist Method Time Signature WBC 6.1 4.0 - 11.0 10/26/2017 [facility] 10e9/L 8:24 AM CDT [facility] RBC Count 3.88 3.8 - 5.2 10/26/2017 [facility] 10e12/L 8:24 AM CDT [facility] Hemoglobin 9.9 (L) 11.7 - 10/26/2017 [facility] 15.7 g/dL 8:24 AM CDT [facility] Hematocrit 30.5 (L) 35.0 - 10/26/2017 [facility] 47.0 % 8:24 AM CDT [facility] MCV 79 78 - 100 10/26/2017 [facility] fl 8:24 AM CDT [facility] MCH 25.5 (L) 26.5 - 10/26/2017 [facility] 33.0 pg 8:24 AM CDT [facility] MCHC 32.5 31.5 - 10/26/2017 [facility] 36.5 g/dL 8:24 AM CDT [facility] RDW 13.3 10.0 - 10/26/2017 [facility] 15.0 % 8:24 AM CDT [facility] Platelet Count 244 150 - 450 10/26/2017 [facility] 10e9/L 8:24 AM CDT [facility] Specimen Anatomical Collection Method Collection Time Receive d Time (Source) Location / / Volume Laterality Blood specimen 10/26/2017 8:00 AM 018 8:01 (specimen) CDT AM CDT Huong Stock PA-C LAB - BLOOD ORDERABLES Performing Organization Address City/[facility]/ZIP Code Phon e Number [address] [place] [address] [facility] (ABNORMAL) Glucose by meter (10/25/2017 8:34 AM CDT) P athologist Signature Glucose 114 (H) 70 - 99 10/25/2017 POINT OF CARE mg/dL 8:46 AM CDT TEST, GLUCOSE Specimen Anatomical Collection Method Collection Time Receive d Time (Source) Location / / Volume Laterality 10/25/2017 8:34 AM 8 8:46 CDT AM CDT Myles De Oliveira MD LAB - [facility] POCT Performing Organization Address City/State/ZIP Code Phon e Number [facility] POINT OF CARE TEST, GLUCOSE POINT OF CARE TEST, GLUCOSE (ABNORMAL) CBC with platelets (10/25/2017 6:26 AM CDT) Patholo gist Method Time Signature WBC 9.9 4.0 - 11.0 10/25/2017 [facility] 10e9/L 6:34 AM CDT [facility] RBC Count 4.03 3.8 - 5.2 10/25/2017 [facility] 10e12/L 6:34 AM CDT [facility] Hemoglobin 10.2 (L) 11.7 - 10/25/2017 [facility] 15.7 g/dL 6:34 AM CDT [facility] Hematocrit 32.0 (L) 35.0 - 10/25/2017 [facility] 47.0 % 6:34 AM CDT [facility] MCV 79 78 - 100 10/25/2017 [facility] fl 6:34 AM CDT [facility] MCH 25.3 (L) 26.5 - 10/25/2017 [facility] 33.0 pg 6:34 AM CDT [facility] MCHC 31.9 31.5 - 10/25/2017 [facility] 36.5 g/dL 6:34 AM CDT [facility] RDW 13.5 10.0 - 10/25/2017 [facility] 15.0 % 6:34 AM CDT [facility] Platelet Count 248 150 - 450 10/25/2017 [facility] 10e9/L 6:34 AM CDT [facility] Specimen Anatomical Collection Method Collection Time Receive d Time (Source) Location / / Volume Laterality Blood specimen 10/25/2017 6:26 AM 018 6:28 (specimen) CDT AM CDT Huong Stock PA-C LAB - BLOOD ORDERABLES Performing Organization Address City/[facility]/ZIP Code Phon e Number [address] [address] [facility] (ABNORMAL) CBC with platelets (10/24/2017 7:05 AM CDT) [facility] gist Method Time Signature WBC 8.8 4.0 - 11.0 10/24/2017 [facility] 10e9/L 7:17 AM CDT [facility] RBC Count 4.04 3.8 - 5.2 10/24/2017 [facility] 10e12/L 7:17 AM CDT [facility] Hemoglobin 10.2 (L) 11.7 - 10/24/2017 [facility] 15.7 g/dL 7:17 AM CDT [facility] Hematocrit 32.2 (L) 35.0 - 10/24/2017 [facility] 47.0 % 7:17 AM CDT [facility] MCV 80 78 - 100 10/24/2017 [facility] fl 7:17 AM CDT [facility] MCH 25.2 (L) 26.5 - 10/24/2017 [facility] 33.0 pg 7:17 AM CDT [facility] MCHC 31.7 31.5 - 10/24/2017 [facility] 36.5 g/dL 7:17 AM CDT [facility] RDW 13.3 10.0 - 10/24/2017 [facility] 15.0 % 7:17 AM CDT [facility] Platelet Count 235 150 - 450 10/24/2017 [facility] 10e9/L 7:17 AM CDT [facility] Specimen Anatomical Collection Method Collection Time Receive d Time (Source) Location / / Volume Laterality Blood specimen 10/24/2017 7:05 AM 018 7:06 (specimen) CDT AM CDT Huong Stock PA-C LAB - BLOOD ORDERABLES Performing Organization Address City/State/ZIP Code Phon e Number [address] [address] [facility] (ABNORMAL) Basic metabolic panel (10/24/2017 7:05 AM CDT) Analysis Performed At Patho logist Time Signature Sodium 144 133 - 144 10/24/2017 [facility] mmol/L 7:33 AM T [facility] Potassium 3.6 3.4 - 5.3 10/24/2017 [facility] mmol/L 7:33 AM CDT [facility] Chloride 110 (H) 94 - 109 10/24/2017 [facility] mmol/L 7:33 AM T [facility] Carbon Dioxide 27 20 - 32 10/24/2017 [facility] mmol/L 7:33 AM T [facility] Anion Gap 7 3 - 14 10/24/2017 [facility] mmol/L 7:33 AM T [facility] Glucose 99 70 - 99 10/24/2017 [facility] mg/dL 7:33 AM T [facility] Urea Nitrogen 6 (L) 7 - 30 10/24/2017 [facility] mg/dL 7:33 AM T [facility] Creatinine 0.74 0.52 - 10/24/2017 [facility] 1.04 mg/dL 7:33 AM T [facility] GFR Estimate 89 >60 10/24/2017 [facility] mL/min/1.7 7:33 AM T [address] Comment: Non GFR Calc GFR Estimate If >90 >60 mL/min/1.7m2 10/24/2017 7:33 A [facility] Black [facility] Comment: GFR Calc Calcium 7.6 (L) 8.5 - 10.1 mg/dL 10/24/2017 7:33 AM T [facility] Specimen Anatomical Collection Method Collection Time Receive d Time (Source) Location / / Volume Laterality Blood specimen 10/24/2017 7:05 AM 018 7:06 (specimen) CDT AM CDT Huong Stock PA-C LAB - BLOOD ORDERABLES Performing Organization Address City/State/ZIP Code Phon e Number [facility] [address] [place] [address] [facility] (ABNORMAL) Glucose by meter (10/24/2017 2:17 AM CDT) P athologist Signature Glucose 110 (H) 70 - 99 10/24/2017 POINT OF CARE mg/dL 2:31 AM CDT TEST, GLUCOSE Specimen Anatomical Collection Method Collection Time Receive d Time (Source) Location / / Volume Laterality 10/24/2017 2:17 AM 8 2:31 CDT AM CDT Myles HILLIARD POCT Performing Organization Address [facility]/ZIP Code Phon e Number [facility] POINT OF CARE TEST, GLUCOSE POINT OF CARE TEST, GLUCOSE XR Surgery MADALYN L/T 5 Min Fluoro (10/23/2017 11:11 AM CDT) Specimen (Source) Anatomical Location Collection Method / Collectio n Time Received Time / Laterality Volume Narrative [facility] - 10/23/2017 11:12 AM CDT This exam was marked as non-reportable because it will not be read by a radiologist or a [place] non-radiologis t provider. Myles De Oliveira MD IMG DIAGNOSTIC IMAGING ORDER TAYLOR Performing Organization Address [facility]/ZIP Code Phon e Number [facility] Glucose by meter (10/23/2017 5:57 AM CDT) P athologist Signature Glucose 94 70 - 99 10/23/2017 POINT OF CARE mg/dL 6:09 AM CDT TEST, GLUCOSE Comment: Dr/RN Notified Specimen Anatomical Collection Method Collection Time Receive d Time (Source) Location / / Volume Laterality 10/23/2017 5:57 AM 8 6:09 CDT AM CDT Myles HILLIARD POCT Performing Organization Address City/[facility]/ZIP Code Phon e Number [facility] POINT OF CARE TEST, GLUCOSE POINT OF CARE TEST, GLUCOSE HCG qualitative urine (10/23/2017 5:50 AM CDT) Analysis Performed At Patho logist Time Signature HCG Qual Urine Negative NEG^Negati 10/23/2017 [facility] 6:22 AM CDT [facility] Comment: This test is for screening purposes. ??R esults should be interpreted along with the clinical picture. ??Confirmation te sting is available if warranted by ordering [id number], HCG Quantitative Pregna ncy. Specimen Anatomical Collection Method Collection Time Receive d Time (Source) Location / / Volume Laterality Urine specimen URINE SPECIMEN / 10/23/2017 5:50 AM 11/2017 6:06 (specimen) Unknown CDT AM CDT Sarah Parry MD LAB - URINE ORDERABLES Performing Organization Address City/State/ZIP Code Phon e Number [facility] [address] [place] [address] [facility] EMG - HIM SCAN (10/23/2017 12:00 AM CDT) Specimen (Source) Anatomical Location Collection Method / Collectio n Time Received Time / Laterality Volume 10/23/2017 Narrative This result has an attachment that is no t available. Provider Scan IP NEUROLOGY ORDERABLES documented in this encounter Visit Diagnoses Diagnosis S/P spinal fusion - Primary Arthrodesis status S/P spinal fusion Arthrodesis status documented in this encounter Administered Medications Inactive Administered Medications - up to 3 most recent administrations Medication Order MAR Action Action Date Dose Rate Site acetaminophen (TYLENOL) tablet 650 Given 10/27/2017 6:48 AM CDT 650 mg mg 650 mg, Oral, EVERY 4 HOURS PRN, other, multimodal surgical pain management along with NSAIDS and opioid medication as indicated based on pain control and physical function., Starting on Shena 10/26/17 at 0000, May give first dose 4 hours after last scheduled dose of acetaminophen Maximum acetaminophen dose from all sources = 75 mg/kg/day not to exceed 4 grams/day., Post-procedure acetaminophen (TYLENOL) tablet 975 mg Given 10/23/2017 6:23 AM CDT 975 mg 975 mg, Oral, ONCE, On Mon10/23/17 at 0545, For 1 dose, Maximum acetaminophen dose from all sources = 75 mg/kg/day not to exceed 4 grams/day., Pre-procedure acetaminophen (TYLENOL) tablet 975 mg Given 10/26/2017 7:07 AM CDT 975 mg 975 mg, Oral, EVERY 8 HOURS, First dose on Mon10/23/17 at 1430, For 3 days, Do not use if patient has an active opioid/acetaminophen combined analgesic product ordered for pain. Maximum acetaminophen dose from all sources = 75 mg/kg/day not to exceed 4 grams/day., Post-procedure Given 10/25/2017 9:53 PM CDT 975 mg Given 10/25/2017 1:52 PM CDT 975 mg bisacodyl (DULCOLAX) Suppository 10 mg Given 10/26/2017 12:19 PM CDT 10 mg 10 mg, Rectal, DAILY PRN, constipation, Starting on Shena 10/26/17 at 0713 calcium carbonate (TUMS) chewable tablet Given 10/27/2017 1:33 A M CDT 1,000 mg 1,000 mg 1,000 mg, Oral, 4 TIMES DAILY PRN, heartburn, Starting on 10/23/17 at 1417, Post-procedure ceFAZolin (ANCEF) 1 g vial to attach to NS 100 New Bag 0 10/24/2017 1:03 AM CDT 1 g ml bag for ADULT or 50 ml bag for PEDS Routine, 1 g, Intravenous, EVERY 8 HOURS, First dose on Mon10/23/17 at 1730, For 2 doses, First post-op dose to be given 8 hours after last intra-op dose, see MAR., Indications: Perioperative Pharmacoprophylaxis, Post-procedure New Bag 10/23/2017 5:27 PM CDT 1 g celecoxib (celeBREX) capsule 200 mg Given 10/23/2017 6:23 AM CDT 200 mg 200 mg, Oral, ONCE, On Mon10/23/17 at 0545, For 1 dose, Give ONLY ONCE in pre-op. Confirm that patient has not already received a PRE OP dose of celecoxib (celeBREX)., Pre-procedure chlorhexidine (PERIDEX) 0.12 % solution 15 mL Given 10/23/2017 6:25 AM CDT 15 mLs 15 mL, Swish & Spit, ONCE, On Mon10/23/17 at 0545, For 1 dose, Swish for 30 seconds then spit, in Pre Op for infection prophylaxis., Pre-procedure diphenhydrAMINE (BENADRYL) capsule 25 mg Given 10/25/2017 3:27 AM CDT 25 mg 25 mg, Oral, EVERY 6 HOURS PRN, itching, Starting on Mon10/23/17 at 1417, Caution to be used when administering multiple Central Nervous System (SEED MILL SUPERINTENDENT) depressing meds within a short time frame., Post-procedure Given 10/24/2017 6:06 AM CDT 25 mg diphenhydrAMINE (BENADRYL) injection 25 mg 25 mg, Intravenous, EVERY 6 HOURS PRN, i tching, Only give if patient unable to take PO., Starting on Mon10/23/17 at 1417, Caution to be us ed when administering multiple Central Nervous System (SEED MILL SUPERINTENDENT) de pressing meds within a short time frame. For ordered doses up to 50 mg, give IV Push undiluted. Give each 25mg over a minimum of 1 minute. Extend in non-emergency, Post-pro cedure fluticasone (FLONASE) 50 MCG/ACT spray 1 Given 10/27/2017 8:18 A M CDT 1 spray spray 1 spray, Both Nostrils, DAILY, First dose on Mon10/24/17 at 0845 Given 10/26/2017 8:52 AM CDT 1 spray Given 10/25/2017 9:28 AM CDT 1 spray gabapentin (NEURONTIN) capsule 300 mg Given 10/23/2017 6:23 AM CDT 300 mg 300 mg, Oral, ONCE, On Mon10/23/17 at 0545, For 1 dose, Give ONLY ONCE in pre-op. Confirm that patient has not already received a PRE OP dose of gabapentin (NEURONTIN). This dose is in addition to patient's home medication dose, if any., Pre-procedure HYDROmorphone (DILAUDID) FLIGHT SERVICE AGENT 1 mg/mL OPIOID Shift Total 10/14 10:35 PM CDT NAIVE Nurse Loading Dose: 0.2 mg, FLIGHT SERVICE AGENT Dose: 0.2 mg, Lockout Interval: 10 Minutes, Continuous Rate: 0 mg/hr, One Hour Dose Limit: 1.8 mg, Starting on Mon10/23/17 at 1200, Start with the provider specified dose. FLIGHT SERVICE AGENT dose range is 0.2 mg - 0.3 mg. May increase dose by 0.1 mg for pain control or improvement in physical function. Hold the dose for analgesic side effects. Notify the provider to assess for uncontrolled pain or analgesic side effects.Do NOT give any additional opioids while on FLIGHT SERVICE AGENT. When transitioning from FLIGHT SERVICE AGENT to oral opioid MAY give first oral dose 30 minutes PRIOR to discontinuation of FLIGHT SERVICE AGENT., Intravenous, Post-procedure Rate/Dose Verify 10/23/2017 2:45 PM CDT New Syringe/Cartridge 10/23/2017 12:41 PM CDT HYDROmorphone (DILAUDID) FLIGHT SERVICE AGENT 1 New Syringe/Cartridge 10/24/2017 9:54 AM CDT mg/mL OPIOID NAIVE Nurse Loading Dose: 0.2 mg, FLIGHT SERVICE AGENT Dose: 0.3 mg, Lockout Interval: 10 Minutes, Continuous Rate: 0 mg/hr, One Hour Dose Limit: 1.8 mg, Starting on Mon10/24/17 at 0130, Start with the provider specified dose. FLIGHT SERVICE AGENT dose range is 0.2 mg - 0.3 mg. May increase dose by 0.1 mg for pain control or improvement in physical function. Hold the dose for analgesic side effects. Notify the provider to assess for uncontrolled pain or analgesic side effects.Do NOT give any additional opioids while on FLIGHT SERVICE AGENT. When transitioning from FLIGHT SERVICE AGENT to oral opioid MAY give first oral dose 30 minutes PRIOR to discontinuation of FLIGHT SERVICE AGENT., Intravenous, Post-procedure Shift Total 10/24/2017 6:01 AM CDT Restarted 10/24/2017 1:28 AM CDT HYDROmorphone (PF) (DILAUDID) injection Given 10/23/2017 12:45 P M CDT 0.5 mg 0.3-0.5 mg 0.3-0.5 mg, Intravenous, EVERY 5 MIN PRN, other, acute pain. ??May administer if Respiratory Rate is greater than 10, Starting on Mon10/23/17 at 1155, Max cumulative dose = 2 mg If fentaNYL (SUBLIMAZE) is also ordered, use HYDROmorphone (DILAUDID) if pain control insufficient with fentaNYL (SUBLIMAZE) or a longer acting agent is needed. For ordered doses up to 4 mg give IV Push undiluted. Administer each 2mg over 2-5 minutes., PACU Given 10/23/2017 12:29 PM CDT 0.5 mg HYDROmorphone (PF) (DILAUDID) injection Given 10/26/2017 6:05 AM CDT 0.5 mg 0.3-0.5 mg 0.3-0.5 mg, Intravenous, EVERY 2 HOURS PRN, moderate to severe pain, Starting on Mon10/24/17 at 1510, For ordered IV doses 0.1-4 mg give IV Push undiluted. Administer each 2mg over 2-5 minutes. Given 10/26/2017 12:05 AM CDT 0.5 mg Given 10/25/2017 5:56 AM CDT 0.5 mg LORazepam (ATIVAN) tablet 0.5 mg Given 10/24/2017 7:24 AM CDT 0.5 mg 0.5 mg, Oral, 2 TIMES DAILY PRN, anxiety, Starting on Mon10/23/17 at 1638 Given 10/23/2017 5:00 PM CDT 0.5 mg LORazepam (ATIVAN) tablet 0.5 mg Given 10/27/2017 12:35 PM CDT 0.5 mg 0.5 mg, Oral, EVERY 4 HOURS PRN, anxiety, Starting on Mon10/24/17 at 1515 Given 10/27/2017 2:11 AM CDT 0.5 mg Given 10/26/2017 5:38 PM CDT 0.5 mg methocarbamol (ROBAXIN) tablet 500 mg Given 10/27/2017 6:48 AM CDT 500 mg 500 mg, Oral, EVERY 6 HOURS PRN, muscle spasms, Starting on Mon10/24/17 at 1507 Given 10/26/2017 11:59 PM CDT 500 mg Given 10/26/2017 9:30 AM CDT 500 mg methylnaltrexone (RELISTOR) injection 12 mg Given 10/24/2017 1:57 PM CDT 6 mg 12 mg, Subcutaneous, EVERY OTHER DAY, First dose on Mon10/24/17 at 0930 methylnaltrexone (RELISTOR) injection 12 mg Given 10/27/2017 8:18 AM CDT 12 mg 12 mg, Subcutaneous, EVERY OTHER DAY, First dose (after last modification) on Mon10/25/17 at 0900 Given 10/25/2017 10:34 AM CDT 12 mg metoclopramide (REGLAN) injection 10 mg Given 10/26/2017 5:48 PM CDT 10 mg 10 mg, Intravenous, Administer over 2 Minutes, EVERY 6 HOURS PRN, nausea, vomiting, Starting on Mon10/23/17 at 1417, This is Step 3 of nausea and vomiting management. Give if nausea not resolved 15 minutes after giving prochlorperazine (COMPAZINE). If nausea not resolved in 15-30 minutes, Notify provider. Avoid use if patient has full bowel obstruction or perforation. Irritant. For ordered doses up to 10 mg, give IV Push undiluted over 2 minutes., Post-procedure metoclopramide (REGLAN) tablet 10 mg 10 mg, Oral, EVERY 6 HOURS PRN, nausea, vomiting, Starting on Mon10/23/17 at 1417, This is Step 3 of nausea and vomiting ma nagement. Give if nausea not resolved 15 minutes after giving prochlorperazine (C OMPAZINE). If nausea not resolved in 15-30 minutes, Notify provider. Avoid use if patient has ful l bowel obstruction or perforation., Post-procedure ondansetron (ZOFRAN) injection 4 mg Given 10/24/2017 1:24 AM CDT 4 mg 4 mg, Intravenous, EVERY 6 HOURS PRN, nausea, vomiting, Administer over 2-5 Minutes, Starting on Mon10/23/17 at 1417, This is Step 1 of nausea and vomiting management. If nausea not resolved in 15 minutes, go to Step 2 prochlorperazine (COMPAZINE). Irritant. For ordered doses up to 4 mg, give IV Push undiluted over 2-5 minutes., Post-procedure ondansetron (ZOFRAN-ODT) ODT tab 4 mg Given 10/27/2017 8:42 AM CDT 4 mg 4 mg, Oral, EVERY 6 HOURS PRN, nausea, vomiting, Starting on Mon10/23/17 at 1417, This is Step 1 of nausea and vomiting management. If nausea not resolved in 15 minutes, go to Step 2 prochlorperazine (COMPAZINE). Do not push through foil backing. Peel back foil and gently remove. Place on tongue immediately. Administration with liquid unnecessary With dry hands, peel back foil backing and gently remove tablet; do not push oral disintegrating tablet through foil backing; administer immediately on tongue and oral disintegrating tablet dissolves in seconds; then swallow with saliva; liquid not required., Post-procedure Given 10/26/2017 8:48 PM CDT 4 mg Given 10/26/2017 8:58 AM CDT 4 mg oxyCODONE IR (ROXICODONE) tablet 10-15 m g Given 10/27/2017 12:35 PM CDT 15 mg 10-15 mg, Oral, EVERY 3 HOURS PRN, other, pain control or improvement in physical function. Hold dose for analgesic side effects., Starting on Mon10/24/17 at 1333, Start with the lowest dose. May adjust dose by 5 mg every 3 hours as needed. Notify provider to assess for uncontrolled pain or analgesic side effects. Hold while on FLIGHT SERVICE AGENT or with regular IV opioid dosing. Maximum total is 80 mg in 24 hours., Post-procedure Given 10/27/2017 9:08 AM CDT 15 mg Given 10/27/2017 5:21 AM CDT 15 mg oxyCODONE IR (ROXICODONE) tablet 5-10 mg Given 10/24/2017 12:05 PM CDT 10 mg 5-10 mg, Oral, EVERY 3 HOURS PRN, other, pain control or improvement in physical function. Hold dose for analgesic side effects., Starting on Mon10/24/17 at 0000, Start with the lowest dose. May adjust dose by 5 mg every 3 hours as needed. Notify provider to assess for uncontrolled pain or analgesic side effects. Hold while on FLIGHT SERVICE AGENT or with regular IV opioid dosing. Maximum total is 80 mg in 24 hours., Post-procedure Given 10/24/2017 10:52 AM CDT 5 mg Given 10/24/2017 9:20 AM CDT 5 mg polyethylene glycol (MIRALAX/GLYCOLAX) Packet Given 10/25/19 9:20 AM CDT 17 g 17 g 17 g, Oral, DAILY, First dose on Mon10/24/17 at 0800, 1 Packet = 17 grams. Mixed prescribed dose in 8 ounces of water. Follow with 8 oz. of water. polyethylene glycol (MIRALAX/GLYCOLAX) Packet Given 10/27/19 8:52 AM CDT 17 g 17 g 17 g, Oral, 2 TIMES DAILY, First dose (after last modification) on Mon10/24/17 at 2000, 1 Packet = 17 grams. Mixed prescribed dose in 8 ounces of water. Follow with 8 oz. of water. Given 10/25/2017 9:29 AM CDT 17 g polyethylene glycol (MIRALAX/GLYCOLAX) Packet Given 10/28/19 9:08 AM CDT 17 g 17 g 17 g, Oral, 3 TIMES DAILY, First dose (after last modification) on Mon10/26/17 at 1400, 1 Packet = 17 grams. Mixed prescribed dose in 8 ounces of water. Follow with 8 oz. of water. Given 10/26/2017 2:50 PM CDT 17 g prochlorperazine (COMPAZINE) injection 1 0 mg 10 mg, Intravenous, EVERY 6 HOURS PRN, nausea, vomitin g, Administer over 1-2 Minutes, Starting on Mon10/23/17 at 1417, This is Step 2 of nausea and vomiting management. If nausea not resolved in 15 minutes, give metoclopramide (REGLAN), if ordered (step 3 of nausea and vomiting m anagement) For ordered doses up to 10 mg, give IV Push undiluted. Each 5mg over 1 minute., Post- procedure prochlorperazine (COMPAZINE) tablet 10 m g Given 10/27/2017 12:35 PM CDT 10 mg 10 mg, Oral, EVERY 6 HOURS PRN, nausea, vomiting, Starting on Mon10/23/17 at 1417, This is Step 2 of nausea and vomiting management. If nausea not resolved in 15 minutes, give metoclopramide (REGLAN), if ordered (step 3 of nausea and vomiting management), Post-procedure Given 10/25/2017 9:54 PM CDT 10 mg Given 10/23/2017 4:06 PM CDT 10 mg pseudoePHEDrine (SUDAFED) 12 hr tablet 1 20 mg Given 10/24/2017 9:36 AM CDT 120 mg 120 mg, Oral, DAILY PRN, congestion, Starting on Mon10/24/17 at 0836, DO NOT CRUSH. scopolamine (TRANSDERM) Given 10/23/2017 7:26 PM CDT 1 patch Other (see comments) 72 hr patch 1 patch 1 patch, Transdermal, EVERY 72 HOURS, First dose on Mon10/23/17 at 1915, Apply patch to skin, behind ear. Remove every 72 hours. Each 1.5 mg patch delivers 1 mg of scopolamine. scopolamine (TRANSDERM-SCOP) Patch in Pl alessandro Read 10/26/2017 7:08 AM CDT First dose on Mon10/23/17 at 1915, Chart every shift, confirming that patch is still in place on patient (no barcode scan needed). See patch order for dose information. Negative 10/25/2017 9:56 PM CDT senna-docusate (SENOKOT-S;PERICOLACE) Given 10/26/2017 8:52 AM C DT 2 tablets 8.6-50 MG per tablet 2 tablet 2 tablet, Oral, 2 TIMES DAILY, First dose on Mon10/23/17 at 2000, Hold for loose stools., Post-procedure Given 10/25/2017 9:54 PM CDT 2 tablets Given 10/25/2017 9:26 AM CDT 2 tablets senna-docusate (SENOKOT-S;PERICOLACE) Given 10/27/2017 9:08 AM C DT 2 tablets 8.6-50 MG per tablet 2 tablet 2 tablet, Oral, 2 TIMES DAILY, First dose (after last modification) on [facility] 10/26/17 at 2000, If no bowel movement in 24 hours, increase to 2 tablets PO. Hold for loose stools., Post-procedure senna-docusate (SENOKOT-S;PERICOLACE) 8. 6-50 MG per tablet 2 tablet 2 tablet, Oral, 2 TIMES DAILY, First dos e (after last modification) on [facility] 10/26/17 at 2000, Hold for loose stools., Post-procedure sodium chloride (PF) 0.9% PF flush 3 mL Given 10/26/2017 12:21 PM CDT 3 mLs 3 mL, Intracatheter, EVERY 8 HOURS, First dose on Mon10/23/17 at 1430, And Q1H PRN, to lock peripheral IV dormant line., Post-procedure Given 10/26/2017 7:09 AM CDT 3 mLs Given 10/25/2017 9:57 PM CDT 3 mLs sodium chloride 0.9% infusion New Bag 10/24/2017 3:04 AM CDT 100 mL/hr at 100 mL/hr, Intravenous, CONTINUOUS, Change to saline lock when PO well tolerated., Post-procedure, Starting on Mon10/23/17 at 1430, Until Mon10/27/17 at 1641 Rate/Dose Verify 10/24/2017 1:28 AM CDT 100 mL/hr New Bag 10/23/2017 5:27 PM CDT 500 mLs 100 mL/hr documented in this encounter Active and Recently Administered Medications Times are shown in CDT. Scheduled Medication Order 10/25/2017 10/26/2017 10/27/2017 acetaminophen (TYLENOL) tablet 975 mg () 3899 ( Given - Provider: Rhonda Sheppard RN)1268 (Given - Provider: Patricia Gonsalez RN)8026 (Given - Provider: Emma Morales RN) 0707 (Given - Provider: Rhonda Sheppard RN) 975 mg, Oral, EVERY 8 HOURS, First dose on Mon10/23/17 at 1430, For 3 days, Do not use if patient has an active opioid/acetaminophen combined analgesic product ordered for pain. Maximum acetaminophen do se from all sources = 75 mg/kg/day not to exceed 4 grams/day., P ost-procedure fluticasone (FLONASE) 50 MCG/ACT spray 1 spray 0928 (G iven - Provider: Patricia Gonsalez RN) 0852 (Given - Provider: Huong Adams RN) 0818 (Given - Provider: Steffanie Killian RN) 1 spray, Both Nostrils, DAILY, First dose on Mon10/24/17 at 0845 lidocaine 2 % (URO-JET) jelly 10 mL 10 mL, Urethral, ONCE, Mon10/23/17 at 1600, For 1 dose methylnaltrexone (RELISTOR) injection 12 mg 1034 (Give n - Provider: Patricia Gonsalez RN) 0818 (Given - Provider: Barbara Killian RN) 12 mg, Subcutaneous, EVERY OTHER DAY, First dose on Mon10/25/17 at 0900 polyethylene glycol (MIRALAX/GLYCOLAX) Packet 17 g 092 9 (Given - Provider: Patricia Gonsalez RN)2154 (Not Given - Provider: Emma Morales RN - Reason: Patient/family refused) 0852 (Given - Provider: Huong Adams RN) 17 g, Oral, 2 TIMES DAILY, First dose on Mon10/24/17 at 2000, 1 Packet = 17 grams. Mixed prescribed dose in 8 ounces of water. Follow with 8 oz. of water. polyethylene glycol (MIRALAX/GLYCOLAX) Packet 17 g 1450 (Given - Provider: Huong Adams RN)2130 (Not Given - Provider: Emma Morales RN - Reason: Contraindicated) 0908 (Given - Provider: Steffanie meyers RN)1400 (Canceled Entry - Provider: Orders Generic Provider - Comment: Automatically canceled at discontinue of medication order) 17 g, Oral, 3 TIMES DAILY, First dose on Mon10/26/17 at 1400, 1 Packet = 17 grams. Mixed prescribed dose in 8 ounces of water. Follow with 8 oz. of water. scopolamine (TRANSDERM-SCOP) Patch in Place (CANCELED) 0332 (Patch in Place - Provider: Rhonda Sheppard, RN)113 (Patch in Place - Provider: Patricia Gonsalez RN)2155 (Negative - Provider: Emma Morales RN) 0708 (Read - Provider: Rhonda Sheppard, RN) First dose on Mon10/23/17 at 1915, Chart every shift, confirming that patch is still in place on patient (no barcode scan needed). See patch order for dose information. senna-docusate (SENOKOT-S;PERICOLACE) 8.6-50 MG per ta blet 1 tablet 0926 (See Alternative - Provider: Patricia Gonsalez RN)2153 (See Alternative - Provider: Emma Morales RN) 0852 (See Alternative - Provider: Huong Adams, KENNY) 1 tablet, Oral, 2 TIMES DAILY, First dos e on Mon10/23/17 at 2000, If no bowel movement in 24 hours, increase to 2 tablets PO. Hold for loose stools., Post-procedure senna-docusate (SENOKOT-S;PERICOLACE) 8.6-50 MG per ta blet 2 tablet (CANCELED) 09 (Given - Provider: Patricia Gonsalez RN)2153 (Given - Provider: Emma Morales RN) 0852 (Given - Provider: Hunog Adams, KENNY) 2 tablet, Oral, 2 TIMES DAILY, First dos e on Mon10/23/17 at 2000, Hold for loose stools., Post-procedure senna-docusate (SENOKOT-S;PERICOLACE) 8. 6-50 MG per tablet 2 tablet(Linked Group 1) 2129 (Not Given - Provider: Emma Morales RN - Reason: Contraindicated) 09 (Given - Provider: Steffanie Killian RN) 2 tablet, Oral, 2 TIMES DAILY, First dos e on Mon10/26/17 at 2000, If no bowel movement in 24 hours, increase to 2 tablets PO. Hold for loose stools., Post-procedure senna-docusate (SENOKOT-S;PERICOLACE) 8. 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)1148 (Given - Provider: Patricia Gonsalez, RN)2157 (Given - Provider: Emma Morales RN) 0709 (Given - Provider: Rhonda Sheppard, KENNY)1221 (Given - Provider: Huong Adams RN)2130 (Not Given - Provider: Emma Morales RN - Reason: Patient/family refused) 0701 (Not Given - Provider: Rhonda Sheppard, KENNY - Reason: Loss of IV access)1200 (Canceled Entry - Provider: Orders Generic Provider - Comment: Automatically canceled at discontinue of medication order) 3 mL, Intracatheter, EVERY 8 HOURS, Firs t dose on Mon10/23/17 at 1430, And Q1H PRN, to lock peripheral IV dormant line., Post-procedure Continuous Medication Order 10/25/2017 10/26/2017 10/27/2017 sodium chloride 0.9% infusion at 100 mL/hr, Intravenous, CONTINUOUS, C hange to saline lock when PO well tolerated., Post-procedure, Starting Mon10/23/17 at 1430, Until Mon10/27/17 at 1641 PRN Medication Order 10/25/2017 10/26/2017 10/27/2017 acetaminophen (TYLENOL) tablet 650 mg 0648 (Given - Provider: Rhonda Sheppard, KENNY) 650 mg, Oral, EVERY 4 HOURS PRN, other, multimodal surgical pain management along with NSAIDS and opioid medication as indicated based on pain control and physical function., Starting [place] 10/26/17 at 000 0, May give first dose 4 hours after las t scheduled dose of acetaminophen Maximum acetaminophen dose from all sources = 75 mg/kg/day not to exceed 4 grams/day., Post-procedure benzocaine-menthol (CEPACOL) 15-3.6 MG lozenge 1-2 lozenge 1-2 lozenge, Buccal, EVERY 1 HOUR PRN, s ore throat, Starting 10/23/17 at 1417, For sore throat without fever., Post-procedure bisacodyl (DULCOLAX) Suppository 10 mg 1 219 (Given - Provider: Huong Adams, RN) 10 mg, Rectal, DAILY PRN, constipation, Starting [place] 10/26/17 at 0713 calcium carbonate (TUMS) chewable tablet 1,000 mg 0133 (Given - Provider: Mercy Avitia, KENNY) 1,000 mg, Oral, 4 TIMES DAILY PRN, heart burn, Starting 10/23/17 at 1417, Post-procedure diphenhydrAMINE (BENADRYL) capsule 25 mg(Linked Group 2) 0327 (Given - Provider: Rhonda Sheppard, KENNY) 25 mg, Oral, EVERY 6 HOURS PRN, itching, Starting 10/23/17 at 1417, Caution to be used when administering multiple Central Nervous System (SEED MILL SUPERINTENDENT) depressing meds within a short time frame., Post-procedure diphenhydrAMINE (BENADRYL) injection 25 mg(Linked Grou p 2) 0327 (See Alternative - Provider: Rhonda Sheppard RN) 25 mg, Intravenous, EVERY 6 HOURS PRN, i tching, Only give if patient unable to take PO., Starting 10/23/17 at 1417, Caution to be used when administering multiple Central Nervous System (SEED MILL SUPERINTENDENT) depress ing meds within a short time frame. For ordered doses up to 50 mg, give IV Push undiluted. Give each 25mg over a minimum of 1 minute. Extend in non-emergency, Post-procedure HYDROmorphone (PF) (DILAUDID) injection 0.3-0.5 mg 033 1 (Given - Provider: Rhonda Sheppard, KENNY)0556 (Given - Provider: Rhonda Sheppard, KENNY) 0005 (Given - Provider: Rhonda Sheppard, KENNY)0605 (Given - Provider: Rhonda Sheppard, RN) 0.3-0.5 mg, Intravenous, EVERY 2 HOURS P RN, Starting Mon10/24/17 at 1510, Until Mon10/27/17 at 1641, moderate to severe pain, For ordered IV doses 0.1-4 mg give IV Push undiluted. Administer each 2mg over 2-5 minutes. lidocaine (LMX4) cream Topical, EVERY 1 HOUR PRN, pain, with VA D insertion or accessing implanted port., Starting Mon10/23/17 at 1417, Do NOT give if patient has a history of allergy to any local anesthetic or any belia pro duct. Apply 30 minutes prior to VAD inse rtion or port access. MAX Dose: 2.5 g (?? of 5 g tube), Post-procedure lidocaine 1 % 1 mL 1 mL, Other, EVERY 1 HOUR PRN, mild pain with VAD insertion or accessing implanted port, Starting Mon10/23/17 at 1417, Do NOT give if patient has a history of allergy to any local anesthetic or any junior ne product. MAX dose 1 mL subcutaneous OR intradermal in divided doses., Post-procedure LORazepam (ATIVAN) tablet 0.5 mg 1145 (Given - Provider: Geovanny Gonsalez RN) 0408 (Given - Provider: Rhonda Sheppard RN)1010 (Given - Provider: Huong Adams, KENNY)1738 (Given - Provider: Emma Morales RN) 0211 (Given - Provider: Rhonda Sheppard RN)1235 (Given - Provider: Steffanie Killian RN) 0.5 mg, Oral, EVERY 4 HOURS PRN, anxiety, Starting Mon10/24/17 a t 1515 melatonin tablet 1 mg 1 mg, Oral, AT BEDTIME PRN, sleep, Start ing Mon10/24/17 at 2000, POD 1. Do not give unless at least 6 hours of uninterrupted sleep is expected., Post-procedure methocarbamol (ROBAXIN) tablet 500 mg 0454 (Given - Pr ovider: Rhonda Sheppard RN)1352 (Given - Provider: Patricia Gonsalez RN) 0116 (Given - Provider: Rhonda Sheppard RN)0930 (Given - Provider: Huong Adams, KENNY)2359 (Given - Provider: Rhonda Sheppard, KENNY) 0648 (Given - Provider: Rhonda Sheppard, Juanis N) 500 mg, Oral, EVERY 6 HOURS PRN, muscle spasms, Starting Tu10/14 at 1507 metoclopramide (REGLAN) injection 10 mg(Linked Group 3) 5030 (Given - Provider: Emma Morales RN) 10 mg, Intravenous, Administer over 2 Mi nutes, EVERY 6 HOURS PRN, Starting 10/23/17 at 1417, nausea, vomiting, This is Step 3 of nausea and vomiting management. Give if nausea not resolved 15 minutes after giving prochlorperazine (COMPAZIN E). If nausea not resolved in 15-30 minutes, Notify provider. Avoid use if patient has full bowel obstruction or perforation. Irritant. For ordered doses up to 10 mg, give IV Push undiluted over 2 minutes., Post-procedure metoclopramide (REGLAN) tablet 10 mg(Linked Group 3) 2320 (See Alternative - Provider: Emma Morales RN) 10 mg, Oral, EVERY 6 HOURS PRN, Starting 10/23/17 at 1417, nausea, vomiting, This is Step 3 of nausea and vomiting management. Give if nausea not resolved 15 minutes after giving prochlorperazine (CO MPAZINE). If nausea not resolved in 15-3 0 minutes, Notify provider. Avoid use if patient has full bowel obstruction or perforation., Post-procedure naloxone (NARCAN) injection 0.1-0.4 mg 0.1-0.4 mg, Intravenous, EVERY 2 MIN PRN , opioid reversal, Starting 10/23/17 at 1417, For respiratory rate LESS than or EQUAL to 8. Partial reversal dose: 0.1 mg titrated q 2 minutes for Analgesia Si de Effects Monitoring Sedation Level of 3 (frequently drowsy, arousable, drifts to sleep during conversation).Full reversal dose: 0.4 mg bolus for Analgesia Side Effects Monitoring Sedation Level of 4 ( somnolent, minimal or no response to sti mulation). For ordered doses up to 2mg give IVP. Give each 0.4mg over 15 seconds in emergency situations. For non- emergent situations further dilute in 9mL of NS to facilitate titration of response., Post-procedure ondansetron (ZOFRAN) injection 4 mg(Linked Group 4) 03 34 (See Alternative - Provider: Rhonda Sheppard RN)1725 (See Alternative - Provider: Emma Morales RN) 0858 (See Alternative - Provider: Huong Adams RN)2047 (See Alternative - Provider: Emma Morales RN) 0842 (See Alternative - Provider: Juinto Killian RN) 4 mg, Intravenous, EVERY 6 HOURS PRN, na usea, vomiting, Administer over 2-5 Minutes, Starting 10/23/17 at 1417, This is Step 1 of nausea and vomiting management. If nausea not resolved in 15 minutes, go to Step 2 prochlorperazine (COMPAZIN E). Irritant. For ordered doses up to 4 mg, give IV Push undiluted over 2-5 minutes., Post-procedure ondansetron (ZOFRAN-ODT) ODT tab 4 mg(Linked Group 4) 0334 (Given - Provider: Rhonda Sheppard RN)1725 (Given - Provider: Emma Morales RN) 0858 (Given - Provider: Huong Adams RN)2047 (Given - Provider: Emma Morales RN) 0842 (Given - Provider: Steffanie Killian RN) 4 mg, Oral, EVERY 6 HOURS PRN, nausea, v omiting, Starting 10/23/17 at 1417, This is Step 1 of nausea and vomiting management. If nausea not resolved in 15 minutes, go to Step 2 prochlorperazine (COMP AZINE). Do not push through foil backing . Peel back foil and gently remove. Place on tongue immediately. Administration with liquid unnecessary With dry hands, peel back foil backing and gently remove t ablet; do not push oral disintegrating t ablet through foil backing; administer immediately on tongue and oral disintegrating tablet dissolves in seconds; then swallow with saliva; liquid not required., Post-procedure oxyCODONE IR (ROXICODONE) tablet 10-15 mg 0120 (Given - Provider: Rhonda Sheppard RN)0454 (Given - Provider: Rhonda Sheppard RN)0925 (Given - Provider: Patricia Gonsalez RN)1236 (Given - Provider: Patricia Gonsalez RN)1538 (Given - Provider: Emma Morales RN)1832 (Given - Provider: Emma Morales RN) 0102 (Given - Provider: Rhonda Sheppard RN)0407 (Given - Provider: Rhonda Sheppard RN)0707 (Given - Provider: Rhonda Sheppard RN)1055 (Given - Provider: Huong Adams, RN)1450 (Given - Provider: Huong Adams, RN)1758 (Given - Provider: Emma Morales RN) 0211 (Given - Provider: Rhonda Sheppard RN)0521 (Given - Provider: Rhonda Sheppard RN)0908 (Given - Provider: Steffanie Killian RN)1235 (Given - Provider: Steffanie Killian RN) 10-15 mg, Oral, EVERY 3 HOURS PRN, other , pain control or improvement in physical function. Hold dose for analgesic side effects., Starting Mon10/24/17 at 1333, Start with the lowest dose. May adjust do 2153 (Given - Provider: Emma Morales RN) 204 (Given - Provider: Emma Morales RN)2 317 (Given - Provider: Emma Morales RN) se by 5 mg every 3 hours as needed. Noti fy provider to assess for uncontrolled pain or analgesic side effects. Hold while on FLIGHT SERVICE AGENT or with regular IV opioid dosing. Maximum total is 80 mg in 24 hours., Post-procedure prochlorperazine (COMPAZINE) injection 10 mg(Linked Gr oup 5) 2153 (See Alternative - Provider: Emma Morales RN) 1235 (See Alte rnative - Provider: Steffanie Killian RN) 10 mg, Intravenous, EVERY 6 HOURS PRN, n ausea, vomiting, Administer over 1-2 Minutes, Starting Mon10/23/17 at 1417, This is Step 2 of nausea and vomiting management. If nausea not resolved in 15 minutes , give metoclopramide (REGLAN), if order ed (step 3 of nausea and vomiting management) For ordered doses up to 10 mg, give IV Push undiluted. Each 5mg over 1 minute., Post-procedure prochlorperazine (COMPAZINE) tablet 10 mg(Linked Group 5) 2153 (Given - Provider: Emma Morales RN) 1235 (Given - Provider: Barbara Killian RN) 10 mg, Oral, EVERY 6 HOURS PRN, nausea, vomiting, Starting 10/23/17 at 1417, This is Step 2 of nausea and vomiting management. If nausea not resolved in 15 minutes, give metoclopramide (REGLAN), if o rdered (step 3 of nausea and vomiting management), Post-procedur e pseudoePHEDrine (SUDAFED) 12 hr tablet 120 mg 120 mg, Oral, DAILY PRN, congestion, Sta rting 10/24/17 at 0836, DO NOT CRUSH. sodium chloride (PF) 0.9% PF flush 3 mL 3 mL, Intracatheter, EVERY 1 HOUR PRN, l ine flush, for peripheral IV flush post IV meds, Starting 10/23/17 at 1417, Post-procedure Linked Groups Order Group 1: senna-docusate (SENOKOT-S;PERICOLACE) 8.6-50 MG per tablet 2 tabletJump to med 2 tablet, Oral, 2 TIMES DAILY, First dos e on [facility] 10/26/17 at 2000
If no bowel movement in 24 hours, increase to 2 tablets PO. Hold for loose stools.
Post-procedure Or senna-docusate (SENOKOT-S;PERICOLACE) 8.6-50 MG per tablet 2 tabletJump to med 2 tablet, Oral, 2 TIMES DAILY, First dos e on [facility] 10/26/17 at 2000
Hold for loose stools.
Post-procedure Group 2: diphenhydrAMINE (BENADRYL) capsule 25 mgJump to med 25 mg, Oral, EVERY 6 HOURS PRN, itching, Starting 10/23/17 at 1417
Caution to be used when administering multiple Central Nervous System (SEED MILL SUPERINTENDENT) depressing meds within a short time frame.
Post-procedure Or diphenhydrAMINE (BENADRYL) injection 25 mgJump to med 25 mg, Intravenous, EVERY 6 HOURS PRN, i tching, Only give if patient unable to take PO., Starting 10/23/17 at 1417
Caution to be used when administering multiple Central Nervous System (SEED MILL SUPERINTENDENT) depressing meds within a short time fra me. For ordered doses up to 50 mg, give IV Push undiluted. Give each 25mg over a minimum of 1 minute. Extend in non-emergency
Post-procedure Group 3: metoclopramide (REGLAN) tablet 10 mgJump to med 10 mg, Oral, EVERY 6 HOURS PRN, Starting 10/23/17 at 1417, nausea, vomiting
This is Step 3 of nausea and vomiting management. Give if nausea not resolved 15 minutes after giving prochlorperazine (COMPAZINE).&nbs p;If nausea not resolved in 15-30 minutes, Notify provider. Avoid use if patient has full bowel obstruction or perforation.
Post-procedure Or metoclopramide (REGLAN) injection 10 mgJump to med 10 mg, Intravenous, Administer over 2 Mi nutes, EVERY 6 HOURS PRN, Starting 10/23/17 at 1417, nausea, vomiting
This is Step 3 of nausea and vomiting management. Give if zhao sea not resolved 15 minutes after giving prochlorperazine (COMPAZINE). If nausea not resolved in 15-30 minutes, Notify provider. Avoid use if patient has full bowel obstruction or perf oration. Irritant. For ordered doses up to 10 mg, give IV Push undiluted over 2 minutes.
Post-procedure Group 4: ondansetron (ZOFRAN-ODT) ODT tab 4 mgJump to med 4 mg, Oral, EVERY 6 HOURS PRN, nausea, v omiting, Starting 10/23/17 at 1417
This is Step 1 of nausea and vomiting management. If nausea not resolved in 15 minutes, go to St ep 2 prochlorperazine (COMPAZINE). Do no t push through foil backing. Peel back foil and gently remove. Place on tongue immediately. Administration with liquid unnecessary With dry hands, peel b ack foil backing and gently remove table t; do not push oral disintegrating tablet through foil backing; administer immediately on tongue and oral disintegrating tablet dissolves in seconds; then swallow with saliva; liquid not required.
Po st-procedure Or ondansetron (ZOFRAN) injection 4 mgJump to med 4 mg, Intravenous, EVERY 6 HOURS PRN, na usea, vomiting, Administer over 2-5 Minutes, Starting 10/23/17 at 1417
This is Step 1 of nausea and vomiting management. If nausea not resolved in 15 minutes, go to Step 2 prochlorperazine (COMPAZINE). Irritant. For ordered doses up to 4 mg, give IV Push undiluted over 2-5 minutes.
Post-procedure Group 5: prochlorperazine (COMPAZINE) injection 10 mgJump to med 10 mg, Intravenous, EVERY 6 HOURS PRN, n ausea, vomiting, Administer over 1-2 Minutes, Starting 10/23/17 at 1417
This is Step 2 of nausea and vomiting management. If nausea not reso lved in 15 minutes, give metoclopramide (REGLAN), if ordered (step 3 of nausea and vomiting management) For ordered doses up to 10 mg, give IV Push undiluted. Each 5mg over 1 minute.
Post-procedure Or prochlorperazine (COMPAZINE) tablet 10 mgJump to med 10 mg, Oral, EVERY 6 HOURS PRN, nausea, vomiting, Starting 10/23/17 at 1417
This is Step 2 of nausea and vomiting management. If nausea not resolved in 15 minutes, give metoclopram negin (REGLAN), if ordered (step 3 of naus ea and vomiting management)
Post-procedure documented in this encounter Care Teams Flexo Operator Relationship Specialty Start Date End Date Keri Elias PCP - General Family Practice 03/12/15 9 MD Ira Glez, Myles Hartman MD Orthopedics 07/09/14 [facility] [place] [address] Astrid Rios PA-C Physician Box Car Washer Physician Box Car Washer - 07/09/14 Surgical documented as of this encounter
--- OUTSIDE RECORDS SUMMARY | 2021-12-17 15:07 | XMS_ITS | Encounter Summary ---
:1980 Author Organization [place] Address [address] [facility] [place] [address] Care Team Providers Name Role Phone Bebeto Roth MD Unavailable Astrid Rios PA-C Unavailable Keri Elias MD Primary Care Provider Unavailable Reason for Visit Reason Onset Date Comments Refill Request 11/06/2017 Encounter Details Date Type Department Care Team Description 11/06/2017 [facility] Bebeto Roth, Refill Request [address] [facility] 4th Floor [address] [place], [place] [phone] [place] [address] (Wo rk) Social History Tobacco Use Types Packs/Day Years Used Date Smoking Tobacco: Never Smokeless Tobacco: Never Alcohol Use Standard Drinks/Week Comments No 0 (1 standard drink = 0.6 oz pure alcoho l) Sex Assigned at Date Recorded Not on file documented as of this encounter Miscellaneous Notes Telephone Encounter - Cindy Harris RN - 11/09/2017 11:39 AM CDT Refilled to [facility] in [place]. Telephone Encounter - Joe Deng - 11/09/2017 11:30 AM CDT [facility] Phone Message May a detailed message be left on voicemail: yes Reason for Call: Medication Refill Request Has the patient contacted the pharmacy for the refill? Yes Name of medication being requested: Kirsten Provider who prescribed the medication: Bebeto Roth Pharmacy: Please mail to pt Date medication is needed: Not a cheney Action Taken: Message routed to: [facility] [place] ([facility]): Orthopedics Telephone Encounter - Katy Toribio RN - 11/06/2017 8:57 AM CDT Returned patients phone call regarding refill request. She is s/p Extension of PISF T4-10 with SPOs on 10/[address] Roth. She reports to be taking 1 tablet every 4 to 5 hours during the day and 1 1/2tablets at night. She states overall it is controlling her pain well. Oxycodone and Robaxin refilledper standing order and will be brought down to [facility] pharmacy for patient to picker and packer this afternoon. Telephone Encounter - Yamilka Rader - 11/06/2017 7:17 AM CDT [facility] Phone Message May a detailed message be left on voicemail: yes Reason for Call: Medication Refill Request Has the patient contacted the pharmacy for the refill? Yes Name of medication being requested: methocarbamol (ROBAXIN) 500 MG tablet & oxyCODONE IR (ROXICODONE) 10 MG tablet Provider who prescribed the medication: Dr. Roth Pharmacy: [facility] - Please call pt when ready for picker and packer - Will be out by tomorrow Date medication is needed: KEMI Action Taken: Message routed to: [facility] ([facility]): Orthopedics documented in this encounter Plan of Treatment Not on filedocumented as of this encounter Visit Diagnoses Diagnosis S/P spinal fusion Arthrodesis status documented in this encounter Care Teams Search Engine Optimization Consultant Relationship Specialty Start Date End Date Keri Elias PCP - General Family Practice 03/12/15 9 NewtonMD Ira David Wayne, MD Orthopedics 07/09/[address] [place] [address] Astrid Rios PA-C Physician Tester Food Products Physician Tester Food Products - 07/09/14 Surgical documented as of this encounter
--- OUTSIDE RECORDS SUMMARY | 2021-12-17 15:07 | XMS_ITS | Encounter Summary ---
:1980 Author Organization [place] Address [address] [place] [address] Care Team Providers Name Role Phone Bebeto Roth MD Unavailable Astrid Rios PA-C Unavailable Keri Elias MD Primary Care Provider Unavailable Reason for Visit Reason Onset Date Comments Opioid Refill 11/22/2017 Oxycodone and ROBAXI N Encounter Details Date Type Department Care Team Description 11/22/2017 [facility] Bebeto Roth Opioid Refill Clinic MD Devan (Oxycodone and ROBAXIN) [address] [place] [id number] Social History Tobacco Use Types Packs/Day Years Used Date Smoking Tobacco: Never Smokeless Tobacco: Never Alcohol Use Standard Drinks/Week Comments No 0 (1 standard drink = 0.6 oz pure alcoho l) Sex Assigned at Date Recorded Not on file documented as of this encounter Miscellaneous Notes Telephone Encounter - Freedom Abdallaclaudia Skinner - 11/22/2017 10:46 AM CDT [facility] Phone Message May a detailed message be left on voicemail: yes Reason for Call: Medication Refill Request Has the patient contacted the pharmacy for the refill? Yes Name of medication being requested: ROBAXIN & Oxycodone Provider who prescribed the medication: Dr. Roth Pharmacy: Mailed to Home Date medication is needed: Pt has 6 pills left. Action Taken: Message routed to: [facility] I called pt. Back. Spine surgery 10-23-17. States has decreased Oxycodone to only 1 BID. NKA. Still has nausea relieved by Zofran 1 in AM. Taking Robaxin as ordered. Pt. Agreed to decrease down to Vicodin & hopefully nausea will be relieved if off Oxycodone. Refilled Zofran & Robaxin. Mailed to pt. RTCPOP appt. 12-13-17. Call back prn. Pt. Agreed. S.O./Nadya Deras RN. documented in this encounter Plan of Treatment Not on filedocumented as of this encounter Visit Diagnoses Diagnosis S/P spinal fusion Arthrodesis status documented in this encounter Care Teams Supervisor Irrigation Relationship Specialty Start Date End Date Keri Elias PCP - General Family Practice 03/12/15 MD Ira Abrams, Bebeto Hartman MD Orthopedics 07/09/[address] [place] [address] Astrid Rios PA-C Physician Toddler Guide Physician Toddler Guide - 07/09/14 Surgical documented as of this encounter
--- OUTSIDE RECORDS SUMMARY | 2021-12-17 15:08 | XMS_ITS | Encounter Summary ---
:1980 Author Organization [place] Address [address] [facility] [place] [address] Care Team Providers Name Role Phone Bebeto Roth MD Unavailable Astrid Rios PA-C Unavailable Keri Elias MD Primary Care Provider Unavailable Reason for Visit Reason Onset Date Comments Forms 10/05/2017 FMLA paperwork f/u Encounter Details Date Type Department Care Team Description 10/05/2017 Telephone [facility] Orthopaedic Bebeto Roth Forms ( FMLA paperwork Clinic MD Devan f/u) [address] [place] [id number] Social History Tobacco Use Types Packs/Day Years Used Date Smoking Tobacco: Never Smokeless Tobacco: Never Alcohol Use Standard Drinks/Week Comments No 0 (1 standard drink = 0.6 oz pure alcoho l) Sex Assigned at Date Recorded Not on file documented as of this encounter Miscellaneous Notes Telephone Encounter - Miguelina Ward LPN - 10/05/2017 9:47 AM CDT Advised patient to call Dr. Roth's real estate legal secretary, Gavi, regarding FMLA paperwork. Number provided. Telephone Encounter - Ellie Owens - 10/05/2017 7:23 AM CDT [facility] Phone Message May a detailed message be left on voicemail: yes Reason for Call: Other: Pt requesting call back to verify that her FMLA paperwork was received via email. Action Taken: Message routed to: [facility] ortho clinic documented in this encounter Plan of Treatment Not on filedocumented as of this encounter Visit Diagnoses Not on filedocumented in this encounter Care Teams Product Strategy Director Relationship Specialty Start Date End Date Keri Elias PCP - General Family Practice 03/12/15 9 MD Ira Glez David Wayne, MD Orthopedics 07/09/[address] [place] [id number] Astrid Rios PA-C Physician Finisher Map And Chart Physician Finisher Map And Chart - 07/09/14 Surgical documented as of this encounter
--- OUTSIDE RECORDS SUMMARY | 2021-12-17 15:08 | XMS_ITS | Encounter Summary ---
:1980 Author Organization [place] Address [address] [facility] [place] [address] Care Team Providers Name Role Phone Bebeto Roth MD Unavailable Astrid Rios PA-C Unavailable Keri Elias MD Primary Care Provider Unavailable Reason for Visit Reason Comments Pre-Op Exam Encounter Details Date Type Department Care Team Description 09/29/2017 Office Visit [facility] Cameron Manjarrez [facility] general Assessment Center BLAYNE Ramirez ATV MECHANIC physical exam [address] [facility] SE [address] [facility] (Primary Dx) 5th Floor [place], [place] [id number] Anesthesia Record Procedure Summary Procedure Name Responsible Anesthesia Start Anesthesia Stop Time Anesthesiologist Time PAC ANESTH CONSULT Events No events on file. No medications on file. Agents No agents on file. Blood No blood administrations on file. Lines, Drains, and Airways No LDAs on file. documented in this encounter Social History Tobacco Use Types Packs/Day Years Used Date Smoking Tobacco: Never Smokeless Tobacco: Never Alcohol Use Standard Drinks/Week Comments No 0 (1 standard drink = 0.6 oz pure alcoho l) Sex Assigned at Date Recorded Not on file documented as of this encounter Last Filed Vital Signs Vital Sign Reading Time Taken Comments Blood Pressure 113/77 09/29/2017 10:07 AM CDT Pulse 85 09/29/2017 10:07 AM CDT Temperature 36.6 ??C (97.9 ??F) 09/29/2017 10:07 AM CDT Respiratory Rate 16 09/29/2017 10:07 AM CDT Oxygen Saturation 100% 09/29/2017 10:07 AM CDT Inhaled Oxygen Concentration - - Weight 68.9 kg (151 lb 12.8 oz) 09/29/2017 10:07 AM CDT Height 160.7 cm (5' 3.25) 09/29/2017 10:07 AM CDT Body Mass Index 26.68 09/29/2017 10:07 AM CDT documented in this encounter H&P Notes Cameron Manjarrez APRN AFFILIATE MARKETING COORDINATOR - 09/29/2017 10:00 AM CDT Images from the original note were not included. Pre-Operative H & P CC: Preoperative exam to assess for increased cardiopulmonary risk while undergoing surgery and anesthesia. Date of Encounter: 09/29/2017 Primary Care Physician: Keri Elias Reason for visit: Preop general physical exam Back surgery HPI Azul Garg is a 37 year old female who presents for pre-operative H & P in preparationfor Extension Of Fusion Thoracic 10- Thoracic 04/16, Rivera Khan Osteotomies Thoracic 1-10 on 10/23/[address] Roth in treatment of scoliosis at [facility]. History is obtained from the patient. She has a history of 65-degree thoracolumbar curve and had a posterior fusion in 09/2009. She now feels like she has gotten increased roundness in the upper back. Imaging has shown a loose screw in upper back. Past Medical History Past Medical History: Diagnosis Date ??? GERD (gastroesophageal reflux disease) ??? Scoliosis Past Surgical History Past Surgical History: Procedure Laterality Date ??? C SPINAL FUSION,ANT,EA ADNL LEVEL 2010 Hx of Blood transfusions/reactions: none Hx of abnormal bleeding or anti-platelet use: none Menstrual history: Patient's last menstrual period was 09/29/2017.: Steroid use in the last year: none Personal or FH with difficulty with Anesthesia: None Prior to Admission Medications Current Outpatient Prescriptions Medication Sig Dispense Refill ??? ibuprofen (ADVIL/MOTRIN) 600 MG tablet Take 1 tablet (600 mg) by mouth every 6 hours as needed for other (cramping) (Patient taking differently: Take 600 mg by mouth as needed for other (cramping) ) 60 tablet 1 ??? pseudoePHEDrine (SUDAFED) 120 MG 12 hr tablet Take 120 mg by mouth every morning ??? fluticasone (FLONASE) 50 MCG/ACT spray [place] 1-2 sprays into both nostrils daily (Patient takingdifferently: [place] 1-2 sprays into both nostrils as needed ) 16 g 3 Allergies Allergies Allergen Reactions ??? Seasonal Allergies Social History Social History Social History ??? Marital status: Single Spouse name: N/A ??? Number of children: N/A ??? Years of education: N/A Occupational History ??? Not on file. Social History Main Topics ??? Smoking status: Never Smoker ??? Smokeless tobacco: Never Used ??? Alcohol use No ??? Drug use: No ??? Sexual activity: Yes Partners: Male Other Topics Concern ??? Not on file Social History Narrative Family History Family History Problem Relation Age of Onset ??? Family History Negative Other Anesthesia Evaluation . Pt has had prior anesthetic. Type: General and MAC ROS/MED HX ENT/Pulmonary: - neg pulmonary ROS Neurologic: - neg neurologic ROS Cardiovascular: - neg cardiovascular ROS (+) ----. : . . . :. . No previous cardiac testing METS/Exercise Tolerance: >4 METS Hematologic: - neg hematologic ROS Musculoskeletal: (+) , , other musculoskeletal- scoliosis, loose hardware GI/Hepatic: (+) GERD Asymptomatic on medication, Renal/Genitourinary: - ROS Renal section negative Endo: (+) Obesity, . Psychiatric: (+) psychiatric history anxiety Infectious Disease: - neg infectious disease ROS Malignancy: - no malignancy Other: (+) No chance of C-spine cleared: N/A, no H/O Chronic Pain,no other significant disability - neg other ROS Physical Exam Normal systems: cardiovascular, pulmonary and dental Airway Mallampati: II TM distance: >3 FB Neck ROM: full Dental Normal Cardiovascular Rhythm and rate: regular and normal Pulmonary breath sounds clear to auscultation The complete review of systems is negative other than noted in the HPI or here. Temp: 97.9 ??F (36.6 ??C) Temp src: Oral BP: 113/77 Pulse: 85 Resp: 16 SpO2: 100 % 151 lbs 12.8 oz 5' 3.25 Body mass index is 26.68 kg/(m^2). Physical Exam Constitutional: Awake, alert, cooperative, no apparent distress, and appears stated age. Eyes: Pupils equal, round and reactive to light, extra ocular muscles intact, sclera clear, conjunctiva normal. HENT: Normocephalic, oral pharynx with moist mucus membranes, good dentition. No goiter appreciated. Respiratory: Clear to auscultation bilaterally, no crackles or wheezing. Cardiovascular: Regular rate and rhythm, normal S1 and S2, and no murmur noted. Carotids +2, no bruits. No edema. Palpable pulses to radial DP and PT arteries. GI: Normal bowel sounds, soft, non-distended, non-tender, no masses palpated, no hepatosplenomegaly.Surgical scars: back Lymph/Hematologic: No cervical lymphadenopathy and no supraclavicular lymphadenopathy. Genitourinary: Deferred Skin: Warm and dry. No rashes at anticipated surgical site. Musculoskeletal: Full ROM of neck. There is no redness, warmth, or swelling of the joints. Gross motor strength is normal. Scoliosis Neurologic: Awake, alert, oriented to name, place and time. Cranial nerves II- XII are grossly intact. Gait is normal. Neuropsychiatric: Calm, cooperative. Normal affect. Labs: (personally reviewed) Results for AZUL MCCLELLAN ( ) as of 09/29/2017 13:47 Ref. Range 09/29/2017 12:03 09/29/2017 12:11 Sodium Latest Ref Range: 133 - 144 [...] Latest Ref Range: 0.86 - 1.14 1.02 ABO Unknown O RH(D) Unknown Pos Antibody Screen Unknown Neg Test Valid Only At Latest Units: [facility] Specimen Expires Unknown 10/02/2017 Color Urine Unknown Yellow Appearance Urine Unknown Clear Glucose Urine Latest Ref Range: NEG^Negative mg/dL Negative Bilirubin Urine Latest Ref Range: NEG^Negative Negative Ketones Urine Latest Ref Range: NEG^Negative mg/dL Negative Specific Lebeau Urine Latest Ref Range: 1.003 - 1.035 1.013 pH Urine Latest Ref Range: 5.0 - 7.0 pH 6.0 Protein Albumin Urine Latest Ref Range: NEG^Negative mg/dL Negative Urobilinogen mg/dL Latest Ref Range: 0.0 - 2.0 mg/dL 0.0 Nitrite Urine Latest Ref Range: NEG^Negative Negative Blood Urine Latest Ref Range: NEG^Negative Large (A) Leukocyte Esterase Urine Latest Ref Range: NEG^Negative Negative Source Unknown Midstream Urine WBC Urine Latest Ref Range: 0 - 5 /HPF 1 RBC Urine Latest Ref Range: 0 - 2 /HPF 3 (H) Squamous Epithelial /HPF Urine Latest Ref Range: 0 - 1 /HPF 3 (H) Transitional Epi Latest Ref Range: FEW^Few /HPF <1 (A) Mucous Urine Latest Ref Range: NEG^Negative /LPF Present (A) EKG: Personally reviewed but formal cardiology read pending: not indicated Outside records reviewed from: care everywhere ASSESSMENT and PLAN Azul Garg is a 37 year old female scheduled to undergo an Extension Of Fusion Thoracic 10- Thoracic 3/4, Rivera Khan Osteotomies Thoracic 1-10 on 10/23/[address] Roth in treatment of scoliosis. She has the following specific operative considerations: - RCRI : Low serious cardiac risks. 0.4% risk of major adverse cardiac event. - Anesthesia considerations: Refer to PAC assessment in anesthesia records - VTE risk: 0.5 % - NUNO # of risks 1/8 = low risk - Post-op delirium risk: Low risk - Risk of PONV score = 2. If > 2, anti-emetic intervention recommended. Previous anesthesia without complications 1) Cardiac: No known cardiac diagnosis. She states that she will occasionally have palpitation with caffeine and energy drinks. METS >4 without cardiac symptoms. 2) Pulmonary: Never smoked, denies pulmonary symptoms 3) GI: GERD, managed with diet 4) MSK: She has a history of 65-degree thoracolumbar curve and had a posterior fusion in 09/2009. She now feels like she has gotten increased roundness in the upper back. Imaging has shown a loose screw in upper back. I spent 30 minutes with patient, greater than 50% educating on preop meds, counseling on anesthesia and coordinating care for back surgery Pt optimized for surgery. AVS with information on surgery time/arrival time, meds and NPO status given by nursing staff Patient was discussed with Dr Shaikh. BLAYNE Palomino Preoperative Assessment Center [facility] documented in this encounter Plan of Treatment Not on filedocumented as of this encounter Results (ABNORMAL) UA reflex to Microscopic and Culture (09/29/2017 12:11 PM CDT) [facility] Time Signature Color Urine Yellow 09/29/2017 [facility] 12[facility]41 [facility] Appearance Urine Clear 09/29/2017 [facility] 12:41 PM [facility] Glucose Urine Negative NEG^Negat 09/29/2017 [facility] mg/dL 12:41 PM [facility] Bilirubin Urine Negative NEG^Negat 09/29/2017 [facility] [place] 12:41 PM [facility] Ketones Urine Negative NEG^Negat 09/29/2017 [facility] [place] mg/dL 12:41 PM [facility] Specific [place]be[place] 1.013 1.003 - 09/29/2017 [facility] Urine 1.035 12:41 PM [facility] Blood Urine Large (A) NEG^Negat 09/29/2017 [facility] [place] 12:41 PM [facility] pH Urine 6.0 5.0 - 7.0 09/29/2017 [facility] pH 12:41 PM [facility] Protein Albumin Negative NEG^Negat 09/29/2017 [facility] Urine [place] mg/dL 12:41 PM [facility] Urobilinogen 0.0 0.0 - 2.0 09/29/2017 [facility] mg/dL mg/dL 12:41 PM [facility] Nitrite Urine Negative NEG^Negat 09/29/2017 [facility] [place] 12:41 PM [facility] Leukocyte Negative NEG^Negat 09/29/2017 [facility] Esterase Urine [place] 12:41 PM [facility] Source Midstream 09/29/2017 [facility] Urine 12:16 PM [facility] RBC Urine 3 (H) 0 - 2 09/29/2017 [facility] /HPF 12:41 PM [facility] WBC Urine 1 0 - 5 09/29/2017 [facility] /HPF 12:41 PM [facility] Squamous 3 (H) 0 - 1 09/29/2017 [facility] Epithelial /HPF /HPF 12:41 PM [place] Urine [facility] Transitional Epi <1 (A) FEW^Few 09/29/2017 [facility] /HPF 12:41 PM [facility] Mucous Urine Present (A) NEG^Negat 09/29/2017 [facility] [place] /LPF 12:41 PM [facility] Specimen (Source) Anatomical Collection Method Collection Time Re ceived Time Location / / Volume Laterality Examination of 09/29/2017 12:11 8 midstream urine PM T 12:16 PM CDT specimen (procedure) Cameron Manjarrez APRN, CNP LAB - URINE ORDERABLES Performing Organization Address City/[facility]/ZIP Code Phon e Number [id number] [place] [address] [facility] Hemoglobin A1c (09/29/2017 12:03 PM CDT) P athologist Signature Hemoglobin A1C 5.3 0 - 5.6 % 09/29/2017 [facility] 12:48 PM CDT [facility] Comment: Normal <5.7% Prediabetes 5.7-6.4% ??Diab etes 6.5% or higher - adopted from ADA consensus guidelines. Specimen Anatomical Collection Method Collection Time Receive d Time (Source) Location / / Volume Laterality Blood specimen 09/29/2017 12:03 8 (specimen) PM CDT 12:04 PM CDT Cameron Manjarrez APRN ATV MECHANIC LAB - BLOOD ORDERABLES Performing Organization Address City/[facility]/ZIP Code Phon e Number [id number] [place] [address] [facility] INR (09/29/2017 12:03 PM CDT) P athologist Signature INR 1.02 0.86 - 1.14 09/29/2017 [facility] 12:28 PM CDT [facility] Specimen Anatomical Collection Method Collection Time Receive d Time (Source) Location / / Volume Laterality Blood specimen 09/29/2017 12:03 8 (specimen) PM CDT 12:04 PM CDT Cameron Mnajarrez APRN, CNP LAB - BLOOD ORDERABLES Performing Organization Address City/[facility]/ZIP Code Phon e Number [phone] [place] [address] [facility] (ABNORMAL) CBC with platelets (09/29/2017 12:03 PM CDT) Patholo gist Method Time Signature WBC 4.8 4.0 - 11.0 09/29/2017 [facility] 10e9/L 12:18 PM CDT [facility] RBC Count 4.87 3.8 - 5.2 09/29/2017 [facility] 10e12/L 12:18 PM CDT [facility] Hemoglobin 12.5 11.7 - 09/29/2017 [facility] 15.7 g/dL 12:18 PM CDT [facility] Hematocrit 39.4 35.0 - 09/29/2017 [facility] 47.0 % 12:18 PM CDT [facility] MCV 81 78 - 100 09/29/2017 [facility] fl 12:18 PM CDT [facility] MCH 25.7 (L) 26.5 - 09/29/2017 [facility] 33.0 pg 12:18 PM CDT [facility] MCHC 31.7 31.5 - 09/29/2017 [facility] 36.5 g/dL 12:18 PM CDT [facility] RDW 13.8 10.0 - 09/29/2017 [facility] 15.0 % 12:18 PM CDT [facility] Platelet Count 332 150 - 450 09/29/2017 [facility] 10e9/L 12:18 PM CDT [facility] Specimen Anatomical Collection Method Collection Time Receive d Time (Source) Location / / Volume Laterality Blood specimen 09/29/2017 12:03 8 (specimen) PM CDT 12:04 PM CDT Cameron Manjarrez APRN ATV MECHANIC LAB - BLOOD ORDERABLES Performing Organization Address City/State/ZIP Code Phon e Number [address] [address] [facility] Basic metabolic panel (09/29/2017 12:03 PM CDT) P athologist Signature Sodium 141 133 - 144 09/29/2017 [facility] mmol/L 12:40 PM CDT [facility] Potassium 3.6 3.4 - 5.3 09/29/2017 [facility] mmol/L 12:40 PM CDT [facility] Chloride 106 94 - 109 09/29/2017 [facility] mmol/L 12:40 PM CDT [facility] Carbon Dioxide 28 20 - 32 09/29/2017 [facility] mmol/L 12:40 PM CDT [facility] Anion Gap 7 3 - 14 09/29/2017 [facility] mmol/L 12:40 PM CDT [facility] Glucose 90 70 - 99 09/29/2017 [facility] mg/dL 12:40 PM CDT [facility] Urea Nitrogen 12 7 - 30 09/29/2017 [facility] mg/dL 12:40 PM CDT [facility] Creatinine 0.85 0.52 - 09/29/2017 [facility] 1.04 mg/dL 12:40 PM CDT [facility] GFR Estimate 76 >60 09/29/2017 [facility] mL/min/1.7 12:[address] Comment: Non GFR Calc GFR Estimate If >90 >60 mL/min/1.7m2 09/29/2017 12:40 PM [facility] Black CDT [facility] Comment: GFR Calc Calcium 8.8 8.5 - 10.1 mg/dL 09/29/2017 12:40 PM CDT [facility] Specimen Anatomical Collection Method Collection Time Receive d Time (Source) Location / / Volume Laterality Blood specimen 09/29/2017 12:03 8 (specimen) PM CDT 12:04 PM CDT Cameron Manjarrez APRN ATV MECHANIC LAB - BLOOD ORDERABLES Performing Organization Address City/State/ZIP Code Phon e Number [address] [address] [facility] ABO/Rh type and screen (09/29/2017 12:03 PM CDT) [facility] gist Method Time Signature ABO O 09/29/2017 [facility] 1:31 PM CDT [facility] RH(D) Pos [facility] Antibody Neg 09/29/2017 [facility] Screen 1:31 PM CDT [facility] Test Valid [facility] 09/29/2017 [facility] 12:[address] [facility] Specimen 10/26/2017 10/23/2017 [facility] Expires 6:57 AM CDT [facility] Blood Bank Pre admission 09/29/2017 [facility] Comment form received 4:03 PM CDT [place] [facility] 09/29/17 for [facility] 10/23/17. AA Specimen Anatomical Collection Method Collection Time Receive d Time (Source) Location / / Volume Laterality Blood specimen 09/29/2017 12:03 8 (specimen) PM CDT 12:04 PM CDT Cameron Cruzon [employer] SUPERINTENDENT ATV MECHANIC LAB - BLOOD BANK TEST ORDER Performing Organization Address City/State/ZIP Code Phon e Number [facility] [address] [place] [address] [facility] [address] [place] [address] [facility] documented in this encounter Visit Diagnoses Diagnosis Preop general physical exam - Primary Other specified pre-operative examinatio n documented in this encounter Care Teams Client Care Specialist Relationship Specialty Start Date End Date Keri Elias PCP - General Family Practice 03/12/15 9 MD Ira Glez David Wayne, MD Orthopedics 07/09/[address] [place] [address] [address] [place], [place] [id number] Astrid Rios PA-C Physician Animal Maintenance Supervisor Physician Animal Maintenance Supervisor - 07/09/14 Surgical documented as of this encounter
--- OUTSIDE RECORDS SUMMARY | 2021-12-17 15:08 | XMS_ITS | Encounter Summary ---
:1980 Author Organization [place] Address [facility] [place] [address] Care Team Providers Name Role Phone Myles De Oliveira MD Unavailable Astrid Rios PA-C Unavailable Keri Elias MD Primary Care Provider Unavailable Reason for Visit Auth/Cert Specialty Diagnoses / Procedures Referred By Contact Refer red To Contact Surgery Diagnoses Scoliosis Kyphosis Ur Periop Procedures PROCEDURE [facility] ORTHO [address] [place] [address] Phone: Fax: Referral ID Status Reason Start Date Expiration Date Visits Requ ested Visits Authorized [id number] 1 1 Encounter Details Date Type Department Care Team Description 10/23/2017 Surgery [facility] Myles De Oliveira Exten dayna Of Fusion PeriOp Services MD Devan Thoracic 4-Thoracic 10, 245 [facility] [address] Miguel Khan [facility] [[email or web address]][place] [address] [place], [place] Osteotomies Thoracic [phone] [id number] Surgery Details Date/Time Status Location OR Service Patient Case Case Traum a Class Class Type Case? 10/23/17 7:30 Posted UR OR UR OR Orthopedics Surgery AM 14 Admit Panel 1 Procedure LRB Anes Op Region Wound Class Commen ts Extension Of Fusion N/A General Spine I-Clean Exten dayna Of Fusion Thoracic 4-Thoracic 10, T horacic 4-Thoracic 10, Rivera Khan Osteotomies Miguel Khan Thoracic 6-10 Osteotomies Thoracic 6-10 Surgeon Surgeon Role Service Panel Myles De Oliveira MD Primary Orthopedics 1 Huong Stock PA-C Assisting 1 Special Needs Ricardo Saver notified 09/11, confirmed @ 2:59 documented in this encounter Social History Tobacco Use Types Packs/Day Years Used Date Smoking Tobacco: Never Smokeless Tobacco: Never Alcohol Use Standard Drinks/Week Comments No 0 (1 standard drink = 0.6 oz pure alcoho l) Sex Assigned at Date Recorded Not on file documented as of this encounter Last Filed Vital Signs Vital Sign Reading Time Taken Comments Blood Pressure 128/78 10/23/2017 1:00 PM CDT Pulse 106 10/23/2017 5:44 AM CDT Temperature 36.6 ??C (97.9 ??F) 10/23/2017 12:37 PM CDT Respiratory Rate 11 10/23/2017 1:00 PM CDT Oxygen Saturation 97% 10/23/2017 1:00 PM CDT Inhaled Oxygen Concentration - - Weight [...] PM Disposition: Home Staff Physician: Myles De Oliveira MD Primary Care Provider: Keri Elias DISCHARGE [...] procedures for pain control and rehabilitation. Jocelin Garg did well post-operatively. Medicine was consulted post [...] 12/13/2017 3:00 PM Myles De Oliveira MD [facility] 01/17/2018 7:45 AM Myles De Oliveira MD [facility] Orthopaedic Surgery appointments are at the [facility] [place] ([address] [place] [address]). Call [phone] to schedule a follow-up appointment at this [...] CHANGED Details fluticasone (FLONASE) 50 MCG/ACT spray Conway 1-2 sprays into both nostrils daily, Disp-16 g, R-3, E-Prescribe pseudoePHEDrine (SUDAFED) 120 MG 12 hr tablet Take 120 mg by mouth every morning, Historical STOP taking these medications ibuprofen (ADVIL/MOTRIN) 600 MG tablet Comments: Reason for Stopping: Discharge Procedure Orders Reason for your hospital stay Order Comments: You were hospitalized after surgery for pain control and therapy. Adult [facility] Follow-up and recommended labs and tests Order Comments: You have an appointment with Dr. De Oliveira on 12/13/17. M [facility] [place] ([address] [place] [address]). Call [phone] to schedule a follow-up appointment at this [...] from 7 am to 7 pm daily [facility] [place] ([address] [place] [id number]). -Pain control: Take medication as prescribed, but [...] help keep you hydrated. -CALL OUR CLINIC ([phone] during regular office hours, or [phone] for the on-call residentMD for questions - [...] Start Date End Date fluticasone (FLONASE) 50 Conway 1-2 sprays 16 g 3 07/05 MCG/ACT [...] prior to contacting the Orthopaedic Surgery resident manager contact. Thank you! Sunni Hernandez MD - 10/26/2017 1:21 PM CDT Urinary retention No BM yet Ambulating with PT Last night nursing notes reviewed No cp No sob No fever No chills No vomiting No loss of consciousness Vital signs: Temp: 99.1 ??F (37.3 ??C) Temp src: Oral BP: 97/50 Pulse: 114 Heart Rate: 103 Resp: 16 SpO2: 98 % [id number]: None (Room air) Oxygen Delivery: 6 LPM [...] Rivera RN - 10/26/2017 10:58 AM CDT Bootmaker Hand Progress Note Admission Date/Time: 10/23/2017 Attending MD: [...] Date: TBD Anticipated Discharge Plan: home Angelica RAMOSN RN CCM RN [facility]maker [facility] 10A E-mail: [email or web address] Pager: [phone] To contact weekend RNCC, dial [phone] and enter pager number [phone] at prompt. This pager can not be contacted by text page or outside line. Alanna Ying MD - 10/26/2017 8:22 AM CDT Orthopaedic [...] prior to contacting the Orthopaedic Surgery resident manager contact. Thank you! Sunni Otoole MD - 10/25/2017 10:13 AM CDT No [...] Mobility Skill: Sit to Supine Level of Izard: Sit/Supine stand-by assist Bed Mobility Skill: Supine to Sit Level of Izard: Supine/Sit stand-by assist Transfer Skill: Bed to Chair/Chair to Bed Level of Izard: Bed to Chair stand-by assist Assistive Device - Transfer Skill Bed to Chair Chair to Bed Rehab Eval standard walker Transfer Skill: Sit to Stand Level of Izard: Sit/Stand stand-by assist Assistive Device for Transfer: Sit/Stand standard walker Transfer Skill: Toilet Transfer Level of Izard: Toilet stand-by assist Upper Body Dressing Level of Izard: Dress Upper Body independent Lower Body Dressing Level of Izard: Dress Lower Body stand-by assist Toileting Level of Izard: Toilet stand-by assist Grooming Level of Izard: Grooming independent Eating/Self Feeding Level of Izard: Eating independent Activities of Daily Living Analysis Impairments Contributing to Impaired Activities of Daily Living pain;post surgical precautions;ROM decreased Clinical Impression Criteria for Skilled Therapeutic Interventions Met evaluation only Risks and Benefits of Treatment have been explained. Yes Patient, Family & other staff in agreement with plan of care Yes [facility]-PAC TM 6 Clicks ?? 2016, Trustees of [facility], under license to [employer]. All rights reserved. 6 Clicks Short Forms Daily Activity Inpatient Short Form [facility] AM-PAC??? 6 Clicks Daily Activity Inpatient Short Form [...] prior to contacting the Orthopaedic Surgery resident manager contact. Thank you! Sunni Hernandez MD - 10/24/2017 10:41 AM CDT Fiance [...] Pericolace . Add miralax Discuss with ortho EDGE INKER UPPERS and care team rounds Tala Roche Pt, PT - 10/24/2017 10:19 AM CDT 10/24/17 1004 Quick Adds Type of Visit Initial PT Evaluation Sighter Sighter Present no Language Greek Living Environment Lives With child(gabino), dependent;significant other [...] in agreement with plan of care Yes [facility]-PAC TM 6 Clicks ?? 2016, Trustees of [facility], under license to [employer]. All rights reserved. 6 Clicks Short Forms Basic Mobility Inpatient Short Form [facility]??? 6 Clicks V.2 Basic Mobility Inpatient Short [...] Evaluation Time Total Evaluation Time (Minutes) 8 T Alanna Ying MD - 10/24/2017 7:29 AM [...] prior to contacting the Orthopaedic Surgery resident manager contact. Thank you! documented in this encounter Consult Notes Michael Hilario MD - 10/23/2017 3:54 PM CDTAssociated Order(s): INTERNAL MEDICINE ADULT IP CONSULT FOR [facility] INTERNAL MEDICINE CONSULTATION REQUESTING PHYSICIAN: Myles De Oliveira MD REASON FOR CONSULTATION: For recommendations for medical comorbidities. Assessment Jocelin Garg is a 37 year old female admitted on 10/23/2017 for spinal Sx 1) Extension Of Fusion Thoracic 4-Thoracic 10, Rivera Khan Osteotomies Thoracic 6-10 post op D# 0 Hemodynamics: stable - continue on IV fluids, until adequate PO. Analgesia: adequate , on UNBUNDLER Antiemetics: as per protocol. If does not [...] with any questions. Michael Hilario MD (Pager- [phone]) Internal Medicine/ Hospitalist CHIEF COMPLAINT: 37 year [...] to Encounter: fluticasone (FLONASE) 50 MCG/ACT spray Conway 1-2 sprays into both nostrils daily (Patient taking differently: Conway 1-2 sprays into both nostrils as needed [...] documented in this encounter Nursing Notes René Esposito, RN - 10/23/2017 12:29 PM CDT PACU to Inpatient Nursing Handoff Patient Jocelin Garg is a 37 year old female who speaks Greek. Procedure Procedure(s): Extension Of Fusion Thoracic 4-Thoracic [...] mg (total dose) last given at 1245 UNBUNDLER / epidural Yes. UNBUNDLER - hydromorphone (Dilaudid) Capnography Yes Telemetry ECG Rhythm: Normal sinus rhythm Inpatient Air Defense Control Officer Ordered? No Labs Glucose Lab Results Component Value Date GLC 90 09/29/2017 Hgb Lab Results Component Value Date HGB 12.5 09/29/2017 INR Lab Results Component Value Date INR 1.02 09/29/2017 PACU Imaging Not applicable Wound/Incision Incision/Surgical Site 10/23/17 Back (Active) Incision Assessment [facility] 10/23/2017 11:18 AM Closure Approximated;Liquid bandage 10/23/2017 [...] 10/23/17 Left Lower forearm (Active) Site Assessment [facility] 10/23/2017 12:07 PM Line Status Saline locked 10/23/2017 12:07 PM Phlebitis Scale 0-->no symptoms 10/23/2017 12:07 PM Infiltration Scale 0 10/23/2017 12:07 PM Infiltration Site Treatment Method None 10/23/2017 6:48 AM Extravasation? No 10/23/2017 6:48 AM Number of days:0 Peripheral IV 10/23/17 Right Lower forearm (Active) Site Assessment [facility] 10/23/2017 12:07 PM Line Status Infusing 10/23/2017 12:07 PM Phlebitis Scale 0-->no symptoms 10/23/2017 12:07 PM Infiltration Scale 0 10/23/2017 12:07 PM Number of days:0 Blood Products Not applicable EBL 310 mL Intake/Output Date 10/23/17 0700 - 10/24/17 0659 Shift 6418-1107 9674-1537 6827-1660 24 Hour Total I N T A K E I.V. 1450 1450 Shift Total (mL/kg) 1450 (21.05) 1450 (21.05) O U T P U T Urine 100 100 Blood 310 310 Shift Total (mL/kg) 410 (5.95) 410 (5.95) Weight (kg) 68.9 68.9 68.9 68.9 Drains / Florez Closed/Suction Drain Back Accordion 10 Botswanan (Active) Site Description [facility] 10/23/2017 12:07 PM Dressing Status Normal: Clean, Dry & Intact 10/23/2017 12:07 PM Drainage Appearance Normal 10/23/2017 12:07 PM Number of days:0 Urethral Catheter Latex 16 fr (Active) Tube Description [facility] 10/23/2017 12:07 PM Collection Container Standard 10/23/2017 [...] needing completion None René Esposito, RN ASCOM [id number] documented in this encounter Miscellaneous Notes Plan of Care - Steffanie Killian RN - 10/27/2017 2:12 PM CDT Problem: [...] to monitor Plan of Care - Huong Adams, KENNY - 10/26/2017 3:09 PM CDT Problem: Patient [...] goal(s). See goals on Care Plan in [facility] electronic health record for goal details. Goals met Therapy recommendation(s): Continue home exercise program. Plan of Care - Jocelin Mayes PT - 10/26/2017 10:32 AM CDT Problem: Patient Care Overview Goal: Plan of Care/Patient Progress Review Spray Painter Helper PT Patient plan for discharge: Home Current [...] Overview Goal: Plan of Care/Patient Progress Review Spray Painter Helper PT Patient plan for discharge: Home with [...] 10:57 AM Plan of Care - Katy Denny OT - 10/25/2017 8:36 AM CDT Problem: Patient Care Overview Goal: Plan of Care/Patient Progress Review OT: OT jacy completed. Patient plans to DC home with [...] Additional Info: Pt very anxious throughout shift, caption writer listened to pt's concerns and addressed [...] had oxycodone dose increased to 10-15mg. Dilaudid UNBUNDLER discontinued this am.Offered ice packs but pt [...] Overview Goal: Plan of Care/Patient Progress Review Spray Painter Helper PT Patient plan for discharge: Home with [...] Care/Patient Progress Review A/O x 4. Increased UNBUNDLER from 0.2 to 0.3 due to inadequate [...] to assess. Plan of Care - Kyle Bernstein, KENNY - 10/23/2017 11:08 PM CDT Problem: Patient [...] 1 Skin: Intact Pain: Moderate. Manageable w/ UNBUNDLER pump. Neuro/CMS: Intact, no numbness or tingling reported Dressing(s): Posterior back CDI Diet: Clear liquids, tolerating well. Equipment: CAPNO UNBUNDLER pump IV's/Drains: PIV R hand infusing NS 100mL/hr and UNBUNDLER pump Hemovac - 0ccs Florez - patent Plan: Continue to monitor Additional Info: Discontinue UNBUNDLER pump POD #1 Discontinue florez POD #1 [...] Assured pt irritation can be from insertion. elizabeth pedro colored urine. BS hypoactive Activity: Pt A-1 rolls side to side. HOB up 30 degrees. Skin: Intact with ex of surgical incisions and hemovac replacement Pain: UNBUNDLER dilaudid on and verified. Pt has discomfort in lower back. And bladder Neuro/CMS: Intact denies numbness and tingling. Prior to surgery pt had intermittently tingling in BL feet. Dressing(s): CDI Aquacel posterior from neck down to Buttocks. hemovac in place CDI. Diet: C.liq. Nausea Zofran given LDA: PIV left hand running LR and Dilaudid UNBUNDLER. R hand piv SL. Hemovac in place and patent. Aquacel. Florez catheter. Equipment: IV pole, PCDs, UNBUNDLER pump. CAPNO Plan: TBT Additional Info: Pt [...] Myles De Oliveira MD N/A None available Hot Wire Glass Tube Cutter(s): Huong Stock PA-C Anesthesia: General Estimated blood [...] to PACU Plan: Pain: Scheduled Tylenol, Dilaudid UNBUNDLER, oxycodone PRN, Valium PRN Activity: Weight bearing [...] in 5-7 days. Huong Stock PA-C Pager: [phone] If no answer or after 4pm, please page the manager contact ortho resident. Op Note - Myles De [...] surgery SURGEON: Myles De Oliveira Jr., MD GASOLINE ENGINE INSPECTOR: Huong Stock PA-C. No qualified resident was [...] then turned in position prone on a [employer] 4-glaciologist frame. She was prepared and draped in [...] the O- arm and transferred to the [employer] image-guided workstation. This was now used to place pedicle screws in a navigated fashion. All the screws were from the [employer] Solera System. These were titanium screws with [...] JR, MD MT: CC Name: JOCELIN PINEDO MRN: [id number] Account: [id number] : 1980 Procedure Date: 10/23/2017 Document: [id number] cc: Copy for Patient Keri Mitchell Beaulieu [...] spine. Positive global coronal imbalance. Sagittal Vertical Howell (A vertical line drawn from the center [...] spine. Positive global coronal imbalance. Sagittal Vertical Howell (A vertical line drawn from the center [...] global sagittal imbalance. QUINCY CORDOVA MD Huong Stock PA-C IMG DIAGNOSTIC IMAGING O RDERABLES (ABNORMAL) UA with Microscopic reflex to Culture (10/26/2017 2:40 PM CDT) Component Value Ref Test Analysis Performed At [facility] gist Range Method Time Signature Color Urine Light Yellow 10/26/2017 [facility] 3:08 PM CDT [facility] Appearance Urine Clear 10/26/2017 [facility] O F 3:08 PM T [facility] Glucose Urine Negative NEG^Nega 10/26/2017 [facility] tive 3:08 PM CDT [place] [facility] mg/dL [facility] Bilirubin Urine Negative NEG^Nega 10/26/2017 [facility] PM T [facility] Ketones Urine 10 (A) NEG^Nega 10/26/2017 [facility] tive 3:08 PM CDT [place] [facility] mg/dL [facility] Specific [place] 1.005 1.003 - 10/26/2017 [place] [facility] Urine 1.035 3:08 PM T [facility] Blood Urine Moderate (A) NEG^Nega 10/26/2017 [facility] tive 3:08 PM T [facility] pH Urine 6.5 5.0 - 10/26/2017 [facility] 7.0 pH 3:08 PM T [facility] Protein Albumin Negative NEG^Nega 10/26/2017 [facility] Urine tive 3:08 PM CDT [place] [facility] mg/dL [facility] Urobilinogen Normal 0.0 - 10/26/2017 [facility] mg/dL 2.0 3:08 PM CDT [place] [facility] mg/dL [facility] Nitrite Urine Negative NEG^Nega 10/26/2017 [facility] tive 3:08 PM CDT [facility] Leukocyte Negative NEG^Nega 10/26/2017 [facility] Esterase Urine tive 3:08 PM CDT [facility] Source Unspecified 10/26/2017 [facility] Urine 2:54 PM CDT [facility] WBC Urine 1 0 - 5 10/26/2017 [facility] /HPF 3:08 PM CDT [facility] RBC Urine 1 0 - 2 10/26/2017 [facility] /HPF 3:08 PM CDT [facility] Squamous <1 0 - 1 10/26/2017 [facility] Epithelial /HPF /HPF 3:08 PM CDT [facility] Specimen (Source) Anatomical Collection Method Collection Time Re ceived Time Location / / Volume Laterality Unspecified Urine URINE SPECIMEN 10/26/2017 2:40 10/26 2:54 OBTAINED BY CLEAN PM CDT PM CDT CATCH PROCEDURE / Unknown Sunni Hernandez MD LAB - URINE ORDERABLES Performing Organization Address City/State/ZIP Code Phon e Number [facility] [address] [place] [address] [facility] (ABNORMAL) CBC with platelets (10/26/2017 8:00 AM CDT) [facility] gist Method Time Signature WBC 6.1 4.0 - 11.0 10/26/2017 [facility] 10e9/L 8:24 AM CDT [facility] RBC Count 3.88 3.8 - 5.2 10/26/2017 [facility] 10e12/L 8:24 AM CDT [facility] Hemoglobin 9.9 (L) 11.7 - 10/26/2017 [facility] 15.7 g/dL 8:24 AM CDT [facility] Hematocrit 30.5 (L) 35.0 - 10/26/2017 [facility] 47.0 % 8:24 AM T [facility] MCV 79 78 - 100 10/26/2017 [facility] fl 8:24 AM CDT [facility] MCH 25.5 (L) 26.5 - 10/26/2017 [facility] 33.0 pg 8:24 AM CDT [facility] MCHC 32.5 31.5 - 10/26/2017 [facility] 36.5 g/dL 8:24 AM CDT [facility] RDW 13.3 10.0 - 10/26/2017 [facility] 15.0 % 8:24 AM CDT [facility] Platelet Count 244 150 - 450 10/26/2017 [facility] 10e9/L 8:24 AM CDT [facility] Specimen Anatomical Collection Method Collection Time Receive d Time (Source) Location / / Volume Laterality Blood specimen 10/26/2017 8:00 AM 018 8:01 (specimen) CDT AM CDT Huong Stock PA-C LAB - BLOOD ORDERABLES Performing Organization Address City/State/ZIP Code Phon e Number [facility] [address] [place] [address] [facility] (ABNORMAL) Glucose by meter (10/25/2017 8:34 AM CDT) P athologist Signature Glucose 114 (H) 70 - 99 10/25/2017 POINT OF CARE mg/dL 8:46 AM CDT TEST, GLUCOSE Specimen Anatomical Collection Method Collection Time Receive d Time (Source) Location / / Volume Laterality 10/25/2017 8:34 AM 8 8:46 CDT AM CDT Myles De Oliveira MD LAB - BEAKER POCT Performing Organization Address City/State/ZIP Code Phon e Number [facility] POINT OF CARE TEST, GLUCOSE POINT OF CARE TEST, GLUCOSE (ABNORMAL) CBC with platelets (10/25/2017 6:26 AM CDT) Patholo gist Method Time Signature WBC 9.9 4.0 - 11.0 10/25/2017 [facility] 10e9/L 6:34 AM CDT [facility] RBC Count 4.03 3.8 - 5.2 10/25/2017 [facility] 10e12/L 6:34 AM CDT [facility] Hemoglobin 10.2 (L) 11.7 - 10/25/2017 [facility] 15.7 g/dL 6:34 AM CDT [facility] Hematocrit 32.0 (L) 35.0 - 10/25/2017 [facility] 47.0 % 6:34 AM CDT [facility] MCV 79 78 - 100 10/25/2017 [facility] fl 6:34 AM CDT [facility] MCH 25.3 (L) 26.5 - 10/25/2017 [facility] 33.0 pg 6:34 AM CDT [facility] MCHC 31.9 31.5 - 10/25/2017 [facility] 36.5 g/dL 6:34 AM CDT [facility] RDW 13.5 10.0 - 10/25/2017 [facility] 15.0 % 6:34 AM CDT [facility] Platelet Count 248 150 - 450 10/25/2017 [facility] 10e9/L 6:34 AM CDT [facility] Specimen Anatomical Collection Method Collection Time Receive d Time (Source) Location / / Volume Laterality Blood specimen 10/25/2017 6:26 AM 018 6:28 (specimen) CDT AM CDT Huong Stock PA-C LAB - BLOOD ORDERABLES Performing Organization Address City/State/ZIP Code Phon e Number [facility] [address] [place] [address] [facility] (ABNORMAL) CBC with platelets (10/24/2017 7:05 AM CDT) [facility] gist Method Time Signature WBC 8.8 4.0 - 11.0 10/24/2017 [facility] 10e9/L 7:17 AM CDT [facility] RBC Count 4.04 3.8 - 5.2 10/24/2017 [facility] 10e12/L 7:17 AM CDT [facility] Hemoglobin 10.2 (L) 11.7 - 10/24/2017 [facility] 15.7 g/dL 7:17 AM CDT [facility] Hematocrit 32.2 (L) 35.0 - 10/24/2017 [facility] 47.0 % 7:17 AM CDT [facility] MCV 80 78 - 100 10/24/2017 [facility] 7:17 AM CDT [facility] MCH 25.2 (L) 26.5 - 10/24/2017 [facility] 33.0 pg 7:17 AM CDT [facility] MCHC 31.7 31.5 - 10/24/2017 [facility] 36.5 g/dL 7:17 AM CDT [facility] RDW 13.3 10.0 - 10/24/2017 [facility] 15.0 % 7:17 AM CDT [facility] Platelet Count 235 150 - 450 10/24/2017 [facility] 10e9/L 7:17 AM T [facility] Specimen Anatomical Collection Method Collection Time Receive d Time (Source) Location / / Volume Laterality Blood specimen 10/24/2017 7:05 AM 018 7:06 (specimen) CDT AM CDT Huong Stock PA-C LAB - BLOOD ORDERABLES Performing Organization Address City/State/ZIP Code Phon e Number [facility] [address] [place] [address] [facility] (ABNORMAL) Basic metabolic panel (10/24/2017 7:05 AM CDT) Analysis Performed At Patho logist Time Signature Sodium 144 133 - 144 10/24/2017 [facility] mmol/L 7:33 AM [facility] Potassium 3.6 3.4 - 5.3 10/24/2017 [facility] mmol/L 7:33 AM [facility] Chloride 110 (H) 94 - 109 10/24/2017 [facility] mmol/L 7:33 AM [facility] Carbon Dioxide 27 20 - 32 10/24/2017 [facility] mmol/L 7:33 AM [facility] Anion Gap 7 3 - 14 10/24/2017 [facility] mmol/L 7:33 AM [facility] Glucose 99 70 - 99 10/24/2017 [facility] mg/dL 7:33 AM [facility] Urea Nitrogen 6 (L) 7 - 30 10/24/2017 [facility] mg/dL 7:33 AM [facility] Creatinine 0.74 0.52 - 10/24/2017 [facility] 1.04 mg/dL 7:33 AM [facility] GFR Estimate 89 >60 10/24/2017 [facility] mL/min/1.7 7:[address] Comment: Non GFR Calc GFR Estimate If >90 >60 mL/min/1.7m2 10/24/2017 7:33 A M [facility] Black [facility] Comment: GFR Calc Calcium 7.6 (L) 8.5 - 10.1 mg/dL 10/24/2017 7:33 AM CDT [facility] Specimen Anatomical Collection Method Collection Time Receive d Time (Source) Location / / Volume Laterality Blood specimen 10/24/2017 7:05 AM 018 7:06 (specimen) CDT AM CDT Huong Stock PA-C LAB - BLOOD ORDERABLES Performing Organization Address City/State/ZIP Code Phon e Number [facility] [address] [place] [address] [facility] (ABNORMAL) Glucose by meter (10/24/2017 2:17 AM CDT) P athologist Signature Glucose 110 (H) 70 - 99 10/24/2017 POINT OF CARE mg/dL 2:31 AM CDT TEST, GLUCOSE Specimen Anatomical Collection Method Collection Time Receive d Time (Source) Location / / Volume Laterality 10/24/2017 2:17 AM 8 2:31 CDT AM CDT Myles DIAZ - BABAK POCT Performing Organization Address City/State/ZIP Code Phon [...] be read by a radiologist or a [place] non-radiologis t provider. Myles De Oliveira MD IMG DIAGNOSTIC IMAGING ORDER TAYLOR Performing Organization Address City/State/ZIP Code Phon e Number [facility] Glucose by meter (10/23/2017 5:57 AM CDT) P athologist Signature Glucose 94 70 - 99 10/23/2017 POINT OF CARE mg/dL 6:09 AM CDT TEST, GLUCOSE Comment: Dr/RN Notified Specimen Anatomical Collection Method Collection Time Receive d Time (Source) Location / / Volume Laterality 10/23/2017 5:57 AM 8 6:09 CDT AM CDT Myles Devan Ira MD LAB - BEAKER POCT Performing Organization Address City/State/ZIP Code Phon e Number [facility] POINT OF CARE TEST, GLUCOSE POINT OF CARE TEST, GLUCOSE HCG qualitative urine (10/23/2017 5:50 AM CDT) Analysis Performed At Patho logist Time Signature HCG Qual Urine Negative NEG^Negati 10/23/2017 [facility] 6:22 AM CDT [facility] Comment: This test is for screening purposes. ??R esults should be interpreted along with the clinical picture. ??Confirmation te sting is available if warranted by ordering [id number], HCG Quantitative Pregna ncy. Specimen Anatomical Collection Method Collection Time Receive d Time (Source) Location / / Volume Laterality Urine specimen URINE SPECIMEN / 10/23/2017 5:50 AM 11/2017 6:06 (specimen) Unknown CDT AM CDT Sarah Parry MD LAB - URINE ORDERABLES Performing Organization Address City/State/ZIP Code Phon e Number [facility] [address] [place], [place] [id number] [place] [address] EMG - HIM SCAN (10/23/2017 12:00 AM CDT) Specimen (Source) Anatomical Location Collection Method / Collectio n Time Received Time / Laterality Volume 10/23/2017 Narrative This result has an attachment that is no t available. Provider Scan IP NEUROLOGY ORDERABLES documented in this encounter Visit Diagnoses Not on filedocumented in this encounter Administered Medications Inactive Administered [...] mg/kg/day not to exceed 4 grams/day., Post-procedure bacitracin 50,000 Units, Given 10/23/2017 11:24 AM 200 mLs Operative Site/Surgical gentamicin (GARAMYCIN) 120 CDT Site mg, polymyxin B 500,000 Units in sodium chloride 0.9% (bottle) 1,000 mL bottle for irrigation PRN, Starting on Mon 18 at 1124, Intra-procedure bisacodyl (DULCOLAX) Suppository 10 mg Given 10/26/2017 12:19 PM CDT 10 mg 10 mg, Rectal, DAILY PRN, constipation, Starting on Shena 10/26/17 at 0713 calcium carbonate (TUMS) chewable tablet Given 10/27/2017 1:33 A M CDT 1,000 mg 1,000 mg 1,000 mg, Oral, 4 TIMES DAILY PRN, heartburn, Starting on Mon10/23/17 at 1417, Post-procedure diphenhydrAMINE (BENADRYL) capsule 25 mg Given 10/25/2017 3:27 AM CDT 25 mg 25 mg, Oral, EVERY 6 HOURS PRN, itching, Starting on Mon10/23/17 at 1417, Caution to be used when administering multiple Central Nervous System (3D ARTIST) depressing meds within a short time frame., Post-procedure Given 10/24/2017 6:06 AM CDT 25 mg diphenhydrAMINE (BENADRYL) injection 25 mg 25 mg, Intravenous, EVERY 6 HOURS PRN, i tching, Only give if patient unable to take PO., Starting on Mon10/23/17 at 1417, Caution to be us ed when administering multiple Central Nervous System (3D ARTIST) de pressing meds within a short time [...] Given 10/25/2017 9:28 AM CDT 1 spray hemostatic matrix Given 10/23/2017 11:23 AM 1 kit Operative Site/Surgical (SURGIFLO) kit CDT Site PRN, Starting on Mon10/23/17 at 1123, Intra-procedure HYDROmorphone (PF) (DILAUDID) injection Given 10/26/2017 6:05 [...] mg methylnaltrexone (RELISTOR) injection 12 mg Given 10/27/2017 [...] or analgesic side effects. Hold while on UNBUNDLER or with regular IV opioid dosing. Maximum total is 80 mg in 24 hours., Post-procedure Given 10/27/2017 9:08 AM CDT 15 mg Given 10/27/2017 5:21 AM CDT 15 mg polyethylene glycol (MIRALAX/GLYCOLAX) Packet Given 10/28/19 9:08 [...] on Mon10/24/17 at 0836, DO NOT CRUSH. senna-docusate (SENOKOT-S;PERICOLACE) Given 10/27/2017 9:08 AM C DT 2 tablets 8.6-50 MG per tablet 2 tablet 2 tablet, Oral, 2 TIMES DAILY, First dose (after last modification) on Mon10/26/17 at 2000, If no bowel movement in 24 hours, increase to 2 tablets PO. Hold for loose stools., Post-procedure senna-docusate (SENOKOT-S;PERICOLACE) 8. 6-50 MG per tablet 2 tablet 2 tablet, Oral, 2 TIMES DAILY, First dos e (after last modification) on Shena 10/26/17 at 2000, Hold for loose stools., Post-procedure sodium chloride (PF) 0.9% PF flush 3 mL Given 10/26/2017 12:21 PM CDT 3 mLs 3 mL, Intracatheter, EVERY 8 HOURS, First dose on 10/23/17 at 1430, And Q1H PRN, to lock [...] 5:27 PM CDT 500 mLs 100 mL/hr thrombin 5000 units vial Given 10/23/2017 11:23 AM 5,000 Units Operativ e PRN, Starting on Mon CDT Site /Surgical Site 10/23/17 at 1123, Intra-procedure vancomycin (VANCOCIN) Given 10/23/2017 11:05 AM 1 g Operative Site/Surgical topical powder CDT Site PRN, Starting on 10/23/17 at 1105, Intra-procedure documented in this encounter Active and Recently Administered Medications Times are shown in CDT. Scheduled Medication Order 10/25/2017 10/26/2017 10/27/2017 acetaminophen (TYLENOL) tablet 975 mg () 1142 ( Given - Provider: Rhonda Sheppard RN)3074 (Given - Provider: Patricia Gonsalez RN)3162 (Given - Provider: Emma Morales RN) 0707 [...] water. scopolamine (TRANSDERM-SCOP) Patch in Place (CANCELED) 033 (Patch in Place - Provider: Rhonda Sheppard, RN)113 (Patch in Place - Provider: Patricia Gonsalez RN)2155 (Negative - Provider: Emma Morales RN) 0708 (Read - Provider: Rhonda Sheppard, KENNY) First dose on Mon10/23/17 at 1915, Chart every shift, confirming that patch is still in place on patient (no barcode scan needed). See patch order for dose information. senna-docusate (SENOKOT-S;PERICOLACE) 8.6-50 MG per ta blet 1 tablet 09 (See Alternative - Provider: Patricia Gonsalez RN)2153 [...] Emma Morales RN) 0852 (Given - Provider: Huong Adams, KENNY) 2 tablet, Oral, 2 TIMES DAILY, First dos e on Mon10/23/17 at 2000, Hold for loose stools., Post-procedure senna-docusate (SENOKOT-S;PERICOLACE) 8. 6-50 MG per tablet 2 tablet(Linked Group 1) 2129 (Not Given - Provider: mEma Morales RN - Reason: Contraindicated) 0908 (Given - Provider: Steffanie Killian RN) 2 tablet, Oral, 2 TIMES DAILY, First dos e on Shena 10/26/17 at 2000, If no bowel movement in 24 hours, increase to 2 tablets PO. Hold for loose stools., Post-procedure senna-docusate (SENOKOT-S;PERICOLACE) 8. 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: family worker d/c'd)1148 (Given - Provider: Patricia Gonsalez, RN)2157 (Given - Provider: Emma Morales RN) 0709 (Given - Provider: Rhonda Sheppard, KENNY)1221 (Given - Provider: Huong Adams, KENNY)2130 (Not Given - Provider: Emma Morales RN - Reason: Patient/family refused) 0701 (Not Given - Provider: Rhonda Sheppard RN - Reason: Loss of IV access)1200 (Canceled [...] lock when PO well tolerated., Post-procedure, Starting 10/23/17 at 1430, Until Mon10/27/17 at 1641 PRN Medication Order 10/25/2017 10/26/2017 10/27/2017 acetaminophen (TYLENOL) tablet 650 mg 0648 (Given - Provider: Rhonda Sheppard RN) 650 mg, Oral, EVERY 4 HOURS PRN, [...] 1 219 (Given - Provider: Huong Adams, KENNY) 10 mg, Rectal, DAILY PRN, constipation, Starting Shena 10/26/17 at 0713 calcium carbonate (TUMS) chewable tablet 1,000 mg 0133 (Given - Provider: Mercy Avitia, KENNY) 1,000 mg, Oral, 4 TIMES DAILY PRN, heart burn, Starting 10/23/17 at 1417, Post-procedure diphenhydrAMINE (BENADRYL) capsule 25 mg(Linked Group 2) 0327 (Given - Provider: Rhonda Sheppard RN) 25 mg, Oral, EVERY 6 HOURS PRN, itching, Starting 10/23/17 at 1417, Caution to be used when administering multiple Central Nervous System (3D ARTIST) depressing meds within a short time frame., Post-procedure diphenhydrAMINE (BENADRYL) injection 25 mg(Linked Grou p 2) 0327 (See Alternative - Provider: Rhonda Sheppard RN) 25 mg, Intravenous, EVERY 6 HOURS PRN, i tching, Only give if patient unable to take PO., Starting 10/23/17 at 1417, Caution to be used when administering multiple Central Nervous System (3D ARTIST) depress ing meds within a short time [...] Sheppard, KENNY)0605 (Given - Provider: Rhonda Sheppard, KENNY) 0.3-0.5 mg, Intravenous, EVERY 2 HOURS P RN, Starting Tu10/24/17 at 1510, Until Mon10/27/17 at 1641, moderate [...] Gonsalez RN) 0408 (Given - Provider: Rhonda Sheppard, KENNY)1010 (Given - Provider: Huong Adams, KENNY)1738 (Given - Provider: Emma Morales RN) 0211 (Given - Provider: Rhonda Sheppard, KENNY)1235 (Given - Provider: Steffanie Killian RN) 0.5 [...] Gonsalez RN) 0116 (Given - Provider: Rhonda Sheppard, KENNY)0930 (Given - Provider: Huong Adams, KENNY)2359 (Given - Provider: Rhonda Sheppard, KENNY) 0648 (Given - Provider: Rhonda Sheppard, Juanis N) 500 mg, Oral, EVERY 6 HOURS PRN, muscle spasms, Starting Tue 10/14 03/02 at 1507 metoclopramide (REGLAN) injection 10 mg(Linked Group 3) 2940 (Given - Provider: Emma Morales RN) 10 [...] metoclopramide (REGLAN) tablet 10 mg(Linked Group 3) 2983 (See Alternative - Provider: Emma Morales RN) [...] 0858 (See Alternative - Provider: Huong Adams RN)204 (See Alternative - Provider: Emma Morales RN) 0842 (See Alternative - Provider: Junito Killian RN) 4 mg, Intravenous, EVERY 6 [...] Rhonda Sheppard RN)0908 (Given - Provider: Steffanie Killian, KENNY)1235 (Given - Provider: Steffanie Killian RN) 10-15 mg, Oral, EVERY 3 HOURS PRN, other , pain control or improvement in physical function. Hold dose for analgesic side effects., Starting Mon10/24/17 at 1333, Start with the lowest dose. May adjust do 2153 (Given - Provider: Emma Morales RN) 2048 (Given - Provider: Emma Morales RN)2 317 (Given - Provider: Emma Morales RN) se by 5 mg every 3 hours as needed. Noti fy provider to assess for uncontrolled pain or analgesic side effects. Hold while on UNBUNDLER or with regular IV opioid dosing. Maximum [...] used when administering multiple Central Nervous System (3D ARTIST) depressing meds within a short time frame.
Post-procedure Or diphenhydrAMINE (BENADRYL) injection 25 mgJump to med 25 mg, Intravenous, EVERY 6 HOURS PRN, i tching, Only give if patient unable to take PO., Starting 10/23/17 at 1417
Caution to be used when administering multiple Central Nervous System (3D ARTIST) depressing meds within a short time fra [...]
Post-procedure documented in this encounter Care Teams Night Supervisor Relationship Specialty Start Date End Date Keri Elias PCP - General Family Practice 03/12/15 9 MD Ira Glez David Wayne, MD Orthopedics 07/09/[address] [place] [address] Astrid Rios PA-C Physician Hot Wire Glass Tube Cutter Physician Hot Wire Glass Tube Cutter - 07/09/14 Surgical documented as of this encounter
--- OUTSIDE RECORDS SUMMARY | 2021-12-17 15:08 | XMS_ITS | Encounter Summary ---
:1980 Author Organization [facility] Address [address] [facility] [place] [address] Care Team Providers Name Role Phone Bebeto Roth MD Unavailable Astrid Rios PA-C Unavailable Keri Elias MD Primary Care Provider Unavailable Reason for Referral - Closed Specialty Diagnoses / Procedures Referred By Contact Refer red To Contact Diagnoses Adolescent idiopathic scoliosis of thoracolumbar region S/P spinal fusion Other kyphosis of thoracic region Bebeto Roth MD [address] [place], [place] [address] Referral ID Status Reason Start Date Expiration Date Visits Requ ested Visits Authorized [id number] Closed 06/29/2017 06/29/2018 1 1 Reason for Visit Reason Comments RECHECK follow up mid back fusion. d iscuss surgery. DOS 10-12-2009 PSF T10-L3 Encounter Details Date Type Department Care Team Description 06/29/[address] [facility] Orthopaedic Bebeto Roth ent idiopathic scoliosis of thoracolumbar region (Primary Dx); Clinic MD Devan S/P spinal fusion; 9 [facility] [address] Other kyphosis of thoracic r egion [address] [place] [id number] [phone] Social History Tobacco Use Types Packs/Day Years [...] - Inhaled Oxygen Concentration - - Weight 72.4 kg (159 lb 11.2 oz) 06/29/2017 2:39 PM CDT Height 160.7 cm (5' 3.25) 06/29/2017 2:39 PM CDT Body Mass Index 28.07 06/29/2017 2:39 PM CDT documented in this encounter Progress Notes Bebeto Roth MD - 06/29/2017 1:45 PM CDT HISTORY OF PRESENT ILLNESS: She returns today for a discussion about her increased roundness in her upper back which she is quite dissatisfied with. She had a 65-degree thoracolumbar curve and underwent a posterior fusion of this in 09/2009. Since that time, she feels like she has gotten increased roundness in the upper back. Subsequently noted on followup radiographs was she has popped a set screw out of her upper pedicle screw. She describes some clicking. She is not able to reproduce this for me,and says it is intermittent. She does have some neck pain and may be hyperextending just a little bit associated with this. Her intake SRS questionnaire score today is a 63%, Oswestry 24%. PHYSICAL EXAMINATION: Shows a well-developed, well-nourished female in no acute distress. She is 4 months from delivering a child and she is still . Her incision is well-healed.There is no clear focal point tenderness, although it does feel like maybe she is with enough force tender over the proximal portion of the incision. She does note some tenderness around her right scapula. RADIOGRAPHIC EXAMINATION: Performed today includes AP and lateral full spine along with a supine hyperextension over a bolster, along with right and left side bending. Comparison is made to full spine imaging from March. There has been no change in position or alignment of the instrumentation. Again noted is the presumed loose set plug on the right side. Of note is her sagittal contour measures show that she has a pelvic incidence of approximately 40 degrees, a lumbar lordosis of approximately 63degrees, a thoracic kyphosis of 69 degrees, which corrects on supine hyperextension to about 56 degrees. ASSESSMENT: Thoracic hyperkyphosis above a prior fusion for adolescent idiopathic scoliosis. PLAN: We have had an extended discussion today, with total contact time exceeding 45 minutes, about the options and expectations. The plan would be to extend the fusion up to T4 or T3 depending on where we can get good pedicle screw purchase. Risks, benefits, alternative treatments and expected outcomes were extensively discussed. The risks of surgery include the risks of general anesthesia includingbut not limited to , heart attack, stroke, blood clot, pneumonia, bladder infection. Surgical risks include but are not limited to bleeding, infection, nerve damage, failure to heal, hardware problems, failure to relieve her pain. She specifically was focused on the risk of paralysis which she thought might be as high as 20%. I explained to her that it is perhaps somewhere in the 1 in 2000 range. She will need some Rivera-Peralta osteotomies to get this lined up and my expectation is the fusionacross most of the prior instrumentation is solid. These appear to be fixed-head Legacy titanium screws from [employer]. The Legacy screws had a higher propensity for cross threading in the set plugs and it may be that the proximal set plug dislodgement is secondary to cross threading as opposed to a pseudoarthrosis. It is her desire to proceed and so we have started the surgery scheduling process today. I expect the surgery will take about 4 hours or so, she will be in the hospital 4 to 5 days. 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 At 3 months, she could go back 8 hours a day, but she will be tired and she specifically asked about the ability to have kids. This will not change and I do not anticipate extending the fusion more caudal so that should not affect the issues of her ability to have an epidural. Answers for HPI/ROS submitted by the patient on 06/29/2017 General Symptoms: No Skin Symptoms: No HENT Symptoms: Yes EYE SYMPTOMS: Yes HEART SYMPTOMS: No LUNG SYMPTOMS: No INTESTINAL SYMPTOMS: No URINARY SYMPTOMS: No GYNECOLOGIC SYMPTOMS: No BREAST SYMPTOMS: No SKELETAL SYMPTOMS: Yes BLOOD SYMPTOMS: No NERVOUS SYSTEM SYMPTOMS: Yes MENTAL HEALTH SYMPTOMS: No Ear pain: No Ear discharge: No Hearing loss: No Tinnitus: Yes Nosebleeds: No Congestion: Yes Sinus pain: Yes Trouble swallowing: No Voice hoarseness: No Mouth sores: No Sore throat: Yes Tooth pain: No Gum tenderness: No Bleeding gums: Yes Change in taste: No Change in sense of smell: No Dry mouth: No Hearing aid used: No Neck lump: No Eye pain: No Vision loss: No Dry eyes: Yes Watery eyes: No Eye bulging: No Double vision: No Flashing of lights: No Spots: Yes Floaters: Yes Redness: No Crossed eyes: No Tunnel Vision: No Yellowing of eyes: No Eye irritation: Yes Back pain: Yes Muscle aches: Yes Neck pain: Yes Swollen joints: No Joint pain: No Bone pain: No Muscle cramps: Yes Muscle weakness: No Joint stiffness: Yes Bone fracture: No Trouble with coordination: No Dizziness or trouble with balance: Yes Fainting or black-out spells: No Memory loss: No Headache: Yes Seizures: No Speech problems: No Tingling: No Tremor: No Weakness: No Difficulty walking: No Paralysis: No Numbness: Yes documented in this encounter Nursing Notes Kathleen Trotter CMA - 06/29/2017 1:45 PM CDT Reason For Visit: Chief Complaint Patient presents with ??? RECHECK follow up mid back fusion. discuss surgery. DOS 10-12-2009 PSF T10-L3 SRS SCORE: 63% Primary MD: Keri Elias Ref. MD: Self Referred ?? Volunteer Services Coordinator? No ?? Occupation: [employer] - currently on maternity leave for another 3 weeks. 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 Yes. 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 ?? Date of injury: None Type of injury: NA. ?? Date of surgery: 10/12/09 Type of surgery: T10-L3 Posterior fusion . ?? Smoker: No Ht 1.607 m (5' 3.25) Wt 72.4 kg (159 lb 11.2 oz) BMI 28.07 kg/m2 Pain Assessment Patient Currently in Pain: Yes 0-10 Pain Scale: 4 Primary Pain Location: Neck (shoulder) Pain Descriptors: Sharp (Clicking ) Aggravating Factors: (Increase activity and certain movements) Oswestry (KYLEE) Questionnaire OSWESTRY DISABILITY INDEX 06/29/2017 Count 10 Sum 12 Oswestry Score (%) 24 Some recent data might be hidden Visual Analog Pain Scale Back Pain Scale 0-10: 0 Right leg pain: 0 Left leg pain: 0 Promis 10 Assessment PROMIS 10 06/29/2017 In general, would you say your health is: Fair In general, would you say your quality of life is: Poor In general, how would you rate your physical health? Fair In general, how would you rate your mental health, including your mood and your ability to think? Good In general, how would you rate your satisfaction with your social activities and relationships? Fair In general, please rate how well you carry out your usual social activities and roles Fair To what extent are you able to carry out your everyday physical activities such as walking, climbingstairs, carrying groceries, or moving a chair? Moderately How often have you been bothered by emotional problems such as feeling anxious, depressed or irritable? Often How would you rate your fatigue on average? Mild How would you rate your pain on average? 0 = No Pain to 10 = Worst Imaginable Pain 5 In general, would you say your health is: 2 In general, would you say your quality of life is: 1 In general, how would you rate your physical health? 2 In general, how would you rate your mental health, including your mood and your ability to think? 3 In general, how would you rate your satisfaction with your social activities and relationships? 2 In general, please rate how well you [...] such as feeling anxious, depressed, or irritable? 4 In the past 7 days, how would you rate your fatigue on average? 2 In the past 7 days, how would you rate your pain on average, where 0 means no pain, and 10 means worst imaginable pain? 5 Global Mental Health Score 8 Global Physical Health Score 12 PROMIS TOTAL - SUBSCORES 20 Some recent data might be hidden Kathleen Trotter CMA 06/29/2017 Nadya Deras RN - 06/29/2017 1:45 PM CDT Teaching Flowsheet Relevant Diagnosis: scoliosis & Kyphosis Teaching Topic: preop spine Person(s) involved in teaching: Patient Motivation Level: Asks Questions: Yes Eager to Learn: Yes Cooperative: Yes Receptive (willing/able to accept information): Yes Any cultural factors/sikh beliefs that may influence understanding or compliance? No Patient demonstrates understanding of the following: Reason for the appointment, diagnosis and treatment plan: Yes Knowledge of proper use of medications and conditions for which they are ordered (with special attention to potential side effects or drug interactions): Yes Which situations necessitate calling provider and whom to contact: Yes Teaching Concerns Addressed: Proper use and care of meds. (medical equip, care aids, etc.): Yes Nutritional needs and diet plan: Yes Pain management techniques: Yes Wound Care: Yes How and/when to access community resources: Yes Instructional Materials Used/Given: preop pkt Time spent with patient: 15 minutes. documented in this encounter Plan of Treatment Scheduled Referrals Name Type Priority Associated Diagnoses Order S chedule PAC Visit Referral Referral Routine Adolescent idiopathic Ordered: 06/29/2017 (For [facility] Only) scoliosis of thoracolumba r region S/P spinal fusio n Other kyphosis of thoracic region documented as of this encounter Visit Diagnoses Diagnosis Adolescent idiopathic scoliosis of thora columbar region - Primary Scoliosis (and kyphoscoliosis), idiopath ic S/P spinal fusion Arthrodesis status Other kyphosis of thoracic region documented in this encounter Care Teams Florist Helper Relationship Specialty Start Date End Date Keri Elias PCP - General Family Practice 03/12/15 9 MD Ira Glez David Wayne, MD Orthopedics 07/09/[address] [place] [address] Astrid Rios PA-C Physician Weight Control Engineer Physician Weight Control Engineer - 07/09/14 Surgical documented as of this encounter
--- OUTSIDE RECORDS SUMMARY | 2021-12-17 15:08 | XMS_ITS | Encounter Summary ---
:1980 Author Organization [place] Address [address] [facility] [place] [address] Care Team Providers Name Role Phone Bebeto Roth MD Unavailable Astrid Rios PA-C Unavailable Keri Elias MD Primary Care Provider Unavailable Reason for Visit Diagnostic Imaging XR - Closed Specialty Diagnoses / Procedures Referred By Contact Refer red To Contact Diagnoses S/P spinal fusion Bebeto Roth MD Procedures XR Spine Complete 2 Views [address] [place], [place] [address] Referral ID Status Reason Start Date Expiration Date Visits Requ ested Visits Authorized [id number] Closed 06/28/2017 06/28/2018 1 1 Encounter Details Date Type Department Care Team Description 06/29/2017 Radiant Appointment [facility] Orthopaedics Bebeto Roth S/P spinal fusion XRay MD Devan [address] [facility] [address] [facility], [address] [place] [address] [phone] Social History Tobacco Use Types Packs/Day Years [...] Diagnosis Comme nts XR SPINE COMPLETE Routine 06/29/2017 1:19 PM S/P spinal fusion Results for this SCOLIOSIS 2 VIEWS CDT procedure are in the results section. documented in this encounter Results XR Spine Complete 2 Views (06/29/2017 1:19 PM CDT) Anatomical Region Laterality Modality Spine Computed Radiography Specimen (Source) Anatomical Location Collection Method / Collectio n Time Received Time / Laterality Volume Impressions 06/29/2017 3:18 PM CDT Impression: 1. Mild convex right curvature of the th oracolumbar/lumbar spine. This decreases with ipsilateral sidebending, as above. 2. No ??global sagittal imbalance. 3. Stable appearance of fusion instrumen tation T10-L3. DANIEL TORRES MD (Joe) Narrative 06/29/2017 3:18 PM CDT Exam: Full body radiographs using EOS History: Status post spinal fusion Techniques: AP and lateral images of ful l body and secondary images of AP and lateral views of spine were submi tted for interpretation. AP views of the full spine and right and le ft sidebending. Comparison: 03/30/2017, 06/05/2014. Findings: 12 rib bearing vertebral bodies and 5 nina mbar type vertebral bodies are identified. Stable appearance of fusion instrumentation T10-L3. Mild proximal adjacent level degenerative monik nges, not substantially changed. Bony detail limited in the midt horacic spine secondary to technique. Reversal cervical lordosis. Coronal Deformity: There is a no substantial ??convexed rig ht curvature of thoracolumbar/lumbar spine with apex at T11. This decreases by approximately 15 degrees with ipsilatera l sidebending. Contralateral side bending without substantial change. No substantial global coronal imbalance. Sagittal Vertical [place] (A vertical line drawn from the center [...] Left: Weight bearing axis crosses through the medial tibial spine. Leg length: ??(Measured from the top of the femoral head to the center of tibial plafond. ??It is assumed joint s are in similar degrees of extension bilaterally. ??Significant dif ference is defined when discrepancy is greater than 1.5 cm). ?No significant ??leg length dis crepancy. Additional Findings: None No acute osseous abnormality. ??There is a nonobstructive bowel gas pattern. Procedure Note Daniel Torres, DO - 06/30/19 18 Exam: Full body radiographs using EOS History: Status post spinal fusion Techniques: AP and lateral images of ful l body and secondary images of AP and lateral views of spine were submi tted for interpretation. AP views of the full spine and right and le ft sidebending. Comparison: 03/30/2017, 06/05/2014. Findings: 12 rib bearing vertebral bodies and 5 nina mbar type vertebral bodies are identified. Stable appearance of fusion instrumentation T10-L3. Mild proximal adjacent level degenerative monik nges, not substantially changed. Bony detail limited in the midt horacic spine secondary to technique. Reversal cervical lordosis. Coronal Deformity: There is a no substantial convexed right curvature of thoracolumbar/lumbar spine with apex at T11. This decreases by approximately 15 degrees with ipsilatera l sidebending. Contralateral side bending without substantial change. No substantial global coronal imbalance. Sagittal Vertical [place] (A vertical line drawn from the center [...] Weight bearing axis crosses throu gh the medial tibial spine. Leg length: (Measured from the top of th e femoral head to the center of tibial plafond. It is assumed joints are in similar degrees of extension bilaterally. Significant diffe rence is defined when discrepancy is greater than 1.5 cm). No significant leg length discrepancy. Additional Findings: None No acute osseous abnormality. There is a nonobstructive bowel gas pattern. Impression: 1. Mild convex right curvature of the th oracolumbar/lumbar spine. This decreases with ipsilateral sidebending, as above. 2. No global sagittal imbalance. 3. Stable appearance of fusion instrumen tation T10-L3. DANIEL TORRES MD (Joe) Bebeto Roth MD IMG DIAGNOSTIC IMAGING ORDER TAYLOR documented in this encounter Visit Diagnoses Diagnosis S/P spinal fusion Arthrodesis status documented in this encounter Care Teams Sealing Machine Operator Relationship Specialty Start Date End Date MeghaAlexa Tysonne PCP - General Family Practice 03/12/15 9 MD Ira Glez David Wayne, MD Orthopedics 07/09/[address] [place] [id number] Astrid Rios PA-C Physician Hydrology Professor Physician Hydrology Professor - 07/09/14 Surgical documented as of this encounter
--- OUTSIDE RECORDS SUMMARY | 2021-12-17 15:08 | XMS_ITS | Encounter Summary ---
:1980 Author Organization [place] Address [address] [facility] [place] [address] Care Team Providers Name Role Phone Bebeto Roth MD Unavailable Astrid Rios PA-C Unavailable Keri Elias MD Primary Care Provider Unavailable Reason for Visit Reason Comments Post Exam Encounter Details Date Type Department Care Team Description 04/12/2017 Office Visit [facility], Iron deficie ncy anemia, unspecified iron deficiency anemia type (Primary Dx); [facility] Keri Glez MD Encounter for initial prescr iption of contraceptive pills [address], [address] [place], [place] [address] Social History Tobacco Use Types Packs/Day Years Used Date Smoking Tobacco: Never Smokeless Tobacco: Never Alcohol Use Standard Drinks/Week Comments No 0 (1 standard drink = 0.6 oz pure alcoho l) Sex Assigned at Date Recorded Not on file documented as of this encounter Last Filed Vital Signs Vital Sign Reading Time Taken Comments Blood Pressure 112/83 04/12/2017 11:05 AM POCKET MACHINE OPERATOR Pulse 94 04/12/2017 11:05 AM POCKET MACHINE OPERATOR Temperature - - Respiratory Rate 16 04/12/2017 11:05 AM POCKET MACHINE OPERATOR Oxygen Saturation 98% 04/12/2017 11:05 AM POCKET MACHINE OPERATOR Inhaled Oxygen Concentration - - Weight 69.8 kg (153 lb 12.8 oz) 04/12/2017 11:05 AM POCKET MACHINE OPERATOR Height - - Body Mass Index 27.03 03/30/2017 12:31 PM POCKET MACHINE OPERATOR documented in this encounter Progress Notes Keri Elias MD - 04/12/2017 11:00 AM CST SUBJECTIVE: The patient is here for a check. She had a couple concerns. One is that she has had more bleeding continuing since her delivery but actually it sounds like her bleeding had stopped and then had what sounded like a period, which is now resolved. She was worried that she might have a prolapsed uterus. She has been doing a lot of reading online. She did not have any stitches but she was not sure if she was feeling something that was not healing right. We talked about contraception. She was interested in doing OCPs. She is probably going to have some back surgery in a few months and wanted to be on something that would be okay for her back surgery. She had been on OCPs before but had not been very good about taking them. She is motivated now because she knows she cannot get before her back surgery. She was quite anemic after childbirth, but she says she is not very good at taking her vitamins. OBJECTIVE: On exam, the patient is in no acute distress. Vital signs are stable. I looked at her perineum and the areas where she had tears look well-healed. She had that in the anterior region and then on the right labial area. Again, those are both well-healed. There is no evidence at all for prolapse. I did feel extending on the right vaginal wall some scarring which I told the patient that shouldnot be giving her any problem whatsoever. IMPRESSION: Basically normal exam. PLAN: We will check a hemoglobin today and I will be seeing her with the baby tomorrow. I will let her know the results then. She looked like she has been mainly on [place] for control in the past so I refilled that 3 months' worth. Visit length was 25 minutes, more than 50% spent in counseling about symptoms and plan. ET MACHINE OPERATOR documented in this encounter Plan of Treatment Not on filedocumented as of this encounter Procedures Procedure Name Priority Date/Time Associated Diagnosis Comme nts HEMOGLOBIN (HGB) Routine 04/12/2017 11:46 Iron deficiency Resu lts for this ([facility]) AM POCKET MACHINE OPERATOR anemia, unspecified procedur e are in iron deficiency the results anemia type section. documented in this encounter Results Hemoglobin (HGB) ([facility]) (04/12/2017 11:46 AM POCKET MACHINE OPERATOR) P athologist Signature Hemoglobin 11.8 11.7 - 15.7 [facility] g/dL MEDICINE [facility] Specimen Anatomical Collection Method Collection Time Receive d Time (Source) Location / / Volume Laterality Blood specimen CAPILLARY BLOOD / 04/12/2017 11:46 03/17 (specimen) Unknown AM POCKET MACHINE OPERATOR 11:48 AM POCKET MACHINE OPERATOR Keri Elias MD LAB - [facility] Performing Organization Address City/State/ZIP Code Phon e Number [facility] [address] [place], [place] [address] [facility] documented in this encounter Visit Diagnoses Diagnosis Iron deficiency anemia, unspecified iron deficiency anemia type - Primary Encounter for initial prescription of co ntraceptive pills General counseling for prescription of o ral contraceptives documented in this encounter Care Teams Technical Solutions Engineer Relationship Specialty Start Date End Date Keri Elias PCP - General Family Practice 03/12/15 9 MD Ira Glez David Wayne, MD Orthopedics 07/09/14 [facility] [facility] [address] [place] [address] Astrid Rios PA-C Physician Spud Sorter Physician Spud Sorter - 07/09/14 Surgical documented as of this encounter
--- OUTSIDE RECORDS SUMMARY | 2021-12-17 15:08 | XMS_ITS | Encounter Summary ---
:1980 Author Organization [place] Address [facility] [place] [address] Care Team Providers Name Role Phone Bebeto Roth MD Unavailable Astrid Rios PA-C Unavailable Keri Elias MD Primary Care Provider Unavailable Reason for Visit Reason Comments RECHECK 3 weeks post-, pt here to follow up in mid back fusion, s/p PSF T10-L3 10/12/09 Encounter Details Date Type Department Care Team Description 03/30/2017 Office Visit [facility] Orthopaedic Bebeto Roth [facility] idiopathic scoliosis of thoracolumbar region (Primary Dx); Clinic MD Devan S/P spinal fusion [address] [place] [address] [address] [place] [id number] [phone] Social History Tobacco Use Types Packs/Day Years [...] - Inhaled Oxygen Concentration - - Weight 71.7 kg (158 lb) 03/30/2017 12:31 PM PRODUCT SAFETY OFFICER Height 160.7 cm (5' 3.25) 03/30/2017 12:31 PM PRODUCT SAFETY OFFICER Body Mass Index 27.77 03/30/2017 12:31 PM PRODUCT SAFETY OFFICER documented in this encounter Progress Notes Bebeto Roth MD - 03/30/2017 12:30 PM CST HISTORY OF PRESENT ILLNESS: She underwent a posterior spinal fusion for severe thoracolumbar scoliosis in 2009. She has had some clicking in the mid back. She just delivered a baby approximately 3-4 weeks ago and is stable now, but is back today for evaluation of what she feels is progression above her curve and the mid spine clicking and it is her desire to have extension of the fusion to address her thoracic increased kyphosis. PHYSICAL EXAMINATION: Reveals a well-developed, well-nourished female in mild discomfort today. Her Oswestry Disability Index score is 14%. Global mental health 13, global physical health 13. Physical exam shows a well-developed, well-nourished female. Evaluation of her stance shows her head is centered over her pelvis. She has a slight increased thoracic kyphosis. On forward bending, right and left side bending, and bending plus rotation, I am not getting a reproducible click in the area of tenderness which is in approximately the T12- L1 level. RADIOGRAPHIC EVALUATION: Imaging performed today includes AP and lateral EOS imaging. Comparison is made to her radiographs from postoperatively and preoperatively along with from imaging from 2015. There appears to be perhaps a slight increase in the thoracic kyphosis, although this is not profound. It is increased over what would normally be expected. The instrumentation is in place and there has been no motion or shift or any evidence of loosening. ASSESSMENT: Thoracic kyphosis above prior fusion for thoracolumbar scoliosis in a patient who is recently . PLAN: I told her I would like to wait another 3 months to get all of the relaxant out of her system and then I would like to get right and left supine side-bendings, a supine hyperextension film over abolster with a bolster at T9 and then AP and lateral EOS which will then allow us to assess where the deformity is coming from and what it would take to correct the overall global spinal alignment. Sheis in agreement with this plan and will make an appointment for followup in 3 months. Answers for HPI/ROS submitted by the patient on 03/30/2017 General Symptoms: No Skin Symptoms: No HENT Symptoms: Yes EYE SYMPTOMS: Yes HEART SYMPTOMS: No LUNG SYMPTOMS: No INTESTINAL SYMPTOMS: No URINARY SYMPTOMS: No GYNECOLOGIC SYMPTOMS: No BREAST SYMPTOMS: No SKELETAL SYMPTOMS: Yes BLOOD SYMPTOMS: No NERVOUS SYSTEM SYMPTOMS: No MENTAL HEALTH SYMPTOMS: No Ear pain: No Ear discharge: No Hearing loss: No Tinnitus: Yes Nosebleeds: No Congestion: No Sinus pain: Yes Trouble swallowing: No Voice hoarseness: No Mouth sores: No Sore throat: No Tooth pain: No Gum tenderness: Yes Bleeding gums: Yes Change in taste: No [...] Yellowing of eyes: No Eye irritation: No Back pain: Yes Muscle aches: Yes Neck pain: No Swollen joints: No Joint pain: No Bone pain: Yes Muscle cramps: No Muscle weakness: No Joint stiffness: No Bone fracture: No UCT SAFETY OFFICER documented in this encounter Nursing Notes Kathleen Trotter CMA - 03/30/2017 12:30 PM CST Reason For Visit: Chief Complaint Patient presents with ??? RECHECK 3 weeks post-, pt here to follow up in mid back fusion, s/p PSF T10-L3 10/12/09 Primary MD: Keri Elias. MD: Self Referred Warm In Worker? 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 Yes. 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 Date of injury: None Type of injury: NA. Date of surgery: 10/12/09 Type of surgery: T10-L3 Posterior fusion . Smoker: No Ht 1.607 m (5' 3.25) Wt 71.7 kg (158 lb) LMP 06/01/2016 BMI 27.77 kg/m2 Pain Assessment Patient Currently in Pain: Denies Oswestry (KYLEE) Questionnaire OSWESTRY DISABILITY INDEX 03/30/2017 Count 10 Sum 7 Oswestry Score (%) 14 Some recent data might be hidden Visual Analog Pain Scale Back Pain Scale 0-10: 0 Right leg pain: 0 Left leg pain: 0 Promis 10 Assessment PROMIS 10 03/30/2017 In general, would you say your health is: Good In general, would you say your quality of life is: Good In general, how would you rate your physical health? Good In general, how would you rate your mental health, including your mood and your ability to think? Good In general, how would you rate your satisfaction with your social activities and relationships? Good In general, please rate how well you carry out your usual social activities and roles Very good To what extent are you able to carry out your everyday physical activities such as walking, climbingstairs, carrying groceries, or moving a chair? Mostly How often have you been bothered by emotional problems such as feeling anxious, depressed or irritable? Rarely How would you rate your fatigue on average? Mild How would you rate your pain on average? 0 = No Pain to 10 = Worst Imaginable Pain 7 In general, would you say your health is: 3 In general, would you say your quality of life is: 3 In general, how would you rate your physical health? 3 In general, how would you rate your mental health, including your mood and your ability to think? 3 In general, how would you rate your satisfaction with your social activities and relationships? 3 In general, please rate how well you carry out your usual social activities and roles. (This includes activities at home, at work and in your community, and responsibilities as a parent, child, spouse,employee, friend, etc.) 4 To what extent are you able to carry out your everyday physical activities such as walking, climbingstairs, carrying groceries, or moving a chair? 4 In the past 7 days, how often have you been bothered by emotional problems such as feeling anxious, depressed, or irritable? 2 In the past 7 days, how would you rate your fatigue on average? 2 In the past 7 days, how would you rate your pain on average, where 0 means no pain, and 10 means worst imaginable pain? 7 Global Mental Health Score 13 Global Physical Health Score 13 PROMIS TOTAL - SUBSCORES 26 Some recent data might be hidden Kathleen Trotter CMA 03/30/2017 UCT SAFETY OFFICER documented in this encounter Plan of Treatment Not on filedocumented as of this encounter Visit Diagnoses Diagnosis Adolescent idiopathic scoliosis of [facility] region - Primary Scoliosis (and kyphoscoliosis), idiopath ic S/P spinal fusion Arthrodesis status documented in this encounter Care Teams Judo Instructor Relationship Specialty Start Date End Date Keri Elias PCP - General Family Practice 03/12/15 9 MD Ira Glez David Wayne, MD Orthopedics 07/09/[address] [place] [id number] Astrid Rios PA-C Physician Fieldwork Coordinator Physician Fieldwork Coordinator - 07/09/14 Surgical documented as of this encounter
--- OUTSIDE RECORDS SUMMARY | 2021-12-17 15:08 | XMS_ITS | Encounter Summary ---
:1980 Author Organization [place] Address [facility]0 [facility] [place] [address] Care Team Providers Name Role Phone Bebeto Roth MD Unavailable Astrid Rios PA-C Unavailable Keri Elias MD Primary Care Provider Unavailable Reason for Visit Diagnostic Imaging XR - Closed Specialty Diagnoses / Procedures Referred By Contact Refer red To Contact Diagnoses S/P spinal fusion Bebeto Roth MD Procedures XR Spine Complete 2 Views [address] [place], [place] [address] Referral ID Status Reason Start Date Expiration Date Visits Requ ested Visits Authorized [id number] Closed 03/27/2017 03/27/2018 1 1 Encounter Details Date Type Department Care Team Description 03/30/2017 Radiant Appointment M [facility] [place] Imaging Bebeto Roth S/P spinal fusion Center Una Hartman MD 9 [facility] SE [address] [place] [address] [phone] Social History Tobacco Use Types Packs/Day Years [...] Diagnosis Comme nts XR SPINE COMPLETE Routine 03/30/2017 12:40 PM S/P spinal fusio n Results for this SCOLIOSIS 2 VIEWS COUNTER MOLDER procedure are in the results section. documented in this encounter Results XR Spine Complete 2 Views (03/30/2017 12:40 PM COUNTER MOLDER) Anatomical Region Laterality Modality Spine Computed Radiography Specimen (Source) Anatomical Location Collection Method / Collectio n Time Received Time / Laterality Volume Impressions 03/30/2017 1:17 PM COUNTER MOLDER Impression: 1. Mild right convexed curvature of the main thoracic spine. 2. No ??global sagittal imbalance. 3. Weight bearing axis as detailed above . 4. Stable posterior instrumented fusion from T10 to L3 ALISHA POPE MD Narrative 03/30/2017 1:17 PM COUNTER MOLDER EXAMINATION: XR SPINE COMPLETE 2 VW, XR LEG LENGTH EVALUATION 03/30/2017 12:40 PM CLINICAL HISTORY: ??; S/P spinal fusion Exam: Full body radiographs using EOS Techniques: AP and lateral images of ful l body and secondary images of AP and lateral views of spine were submi tted for interpretation. Comparison: Full spine dated 06/05/2014. Findings: 12 rib bearing vertebral bodies and 5 nina mbar type vertebral bodies are identified. Coronal Deformity: There is a mild right convex curvature o f thoracolumbar/lumbar spine with apex at T10. No substantial global coronal imbalance. Sagittal Vertical [place] (A vertical line drawn from the center of C7 (dragan line) to the posterosuperior aspe ct of the S1 on sagittal plane): ??less than 4 cm Weight bearing axis: (Defined as a line drawn from the center of the femoral head to the mid aspect of the ti bial plafond). ?Right: Weight bearing axis crosses central 1/3 of medial tibial plateau. ? Left: Weight bearing axis crosses between tibial spines. Leg length: ??(Measured from the top of the femoral head to the center of tibial plafond. ??It is assumed joint s are in similar degrees of extension bilaterally. Significant diffe rence is defined when discrepancy is greater than 1.5 cm). ?No significant ??leg length dis crepancy. Additional Findings: Stable postsurgical changes of attempted anterior instrumented fusion between T10 and L3. There is hyper accen tuated kyphosis at the level of T10. T9 vertebral body is not well se en on the uterus radiograph. No acute osseous abnormality. ??There is a nonobstructive bowel gas pattern. Procedure Note Alisha Pope MD - 03/30/2017Forma tting of this note might be different from the original. EXAMINATION: XR SPINE COMPLETE 2 VW, XR LEG LENGTH EVALUATION 03/30/2017 12:40 PM CLINICAL HISTORY: ; S/P spinal fusion Exam: Full body radiographs using EOS Techniques: AP and lateral images of ful l body and secondary images of AP and lateral views of spine were submi tted for interpretation. Comparison: Full spine dated 06/05/2014. Findings: 12 rib bearing vertebral bodies and 5 nina mbar type vertebral bodies are identified. Coronal Deformity: There is a mild right convex curvature o f thoracolumbar/lumbar spine with apex at T10. No substantial global coronal imbalance. Sagittal Vertical [place] (A vertical line drawn from the center of C7 (dragan line) to the posterosuperior aspe ct of the S1 on sagittal plane): less than 4 cm Weight bearing axis: (Defined as a line drawn from the center of the femoral head to the mid aspect of the ti bial plafond). Right: Weight bearing axis crosses cent ral 1/3 of medial tibial plateau. Left: Weight bearing axis crosses betwe en tibial spines. Leg length: (Measured from the top of th e femoral head to the center of tibial plafond. It is assumed joints are in similar degrees of extension bilaterally. Significant diffe rence is defined when discrepancy is greater than 1.5 cm). No significant leg length discrepancy. Additional Findings: Stable postsurgical changes of attempted anterior instrumented fusion between T10 and L3. There is hyper accen tuated kyphosis at the level of T10. T9 vertebral body is not well se en on the uterus radiograph. No acute osseous abnormality. There is a nonobstructive bowel gas pattern. Impression: 1. Mild right convexed curvature of the main thoracic spine. 2. No global sagittal imbalance. 3. Weight bearing axis as detailed above . 4. Stable posterior instrumented fusion from T10 to L3 ALISHA POPE MD Bebeto Roth MD IMG DIAGNOSTIC IMAGING ORDER TAYLOR documented in this encounter Visit Diagnoses Diagnosis S/P spinal fusion Arthrodesis status documented in this encounter Care Teams Coin Rolling Machine Operator Relationship Specialty Start Date End Date Keri Elias PCP - General Family Practice 03/12/15 9 MD Ira Glez David Wayne, MD Orthopedics 07/09/[address] [place] [id number] Astrid Rios PA-C Physician Manager Fund Physician Manager Fund - 07/09/14 Surgical documented as of this encounter
--- OUTSIDE RECORDS SUMMARY | 2021-12-17 15:08 | XMS_ITS | Encounter Summary ---
:1980 Author Organization [place] Address [facility] [place] [address] Care Team Providers Name Role Phone Bebeto Roth MD Unavailable Astrid Rios PA-C Unavailable Keri Elias MD Primary Care Provider Unavailable Reason for Visit Diagnostic Imaging XR - Closed Specialty Diagnoses / Procedures Referred By Contact Refer red To Contact Diagnoses S/P spinal fusion Bebeto Roth MD Procedures XR Spine Complete 2 Views [address] [place], [place] [address] Referral ID Status Reason Start Date Expiration Date Visits Requ ested Visits Authorized [id number] Closed 06/28/2017 06/28/2018 1 1 Encounter Details Date Type Department Care Team Description 06/29/2017 Radiant Appointment [facility] Imaging Bebeto Roth S/P spinal fusion Center Una Hartman MD 9 [facility] SE [address] [place] [address] [phone] Social History Tobacco Use Types Packs/Day Years [...] Comme nts XR SPINE COMPLETE Routine 06/29/2017 1:57 PM S/P spinal fusion Results for this SCOLIOSIS 2 VIEWS CDT procedure are in the results section. documented in this encounter Results XR Spine Complete 2 Views (06/29/2017 1:57 PM CDT) Anatomical Region Laterality Modality Spine [...] No substantial global coronal imbalance. Sagittal Vertical [place] (A vertical line drawn from the center [...] No substantial global coronal imbalance. Sagittal Vertical [place] (A vertical line drawn from the center [...] status documented in this encounter Care Teams Dock Pumper Relationship Specialty Start Date End Date MeghaAlexa Tysonne PCP - General Family Practice 03/12/15 9 MD Ira Glez David Wayne, MD Orthopedics 07/09/[address] [place] [address] Astrid Rios PA-C Physician Licensed Life And Health Agent Physician Licensed Life And Health Agent - 07/09/14 Surgical documented as of this encounter
--- OUTSIDE RECORDS SUMMARY | 2021-12-17 15:08 | XMS_ITS | Encounter Summary ---
:1980 Author Organization [place] Address [facility] [place] [address] Care Team Providers Name Role Phone Bebeto Roth MD Unavailable Astrid Rios PA-C Unavailable Keri Elias MD Primary Care Provider Unavailable Reason for Visit Diagnostic Imaging XR - Closed Specialty Diagnoses / Procedures Referred By Contact Refer red To Contact Diagnoses S/P spinal fusion Bebeto Roth MD Procedures XR Leg Length Evaluation [address] [place], [place] [address] Referral ID Status Reason Start Date Expiration Date Visits Requ ested Visits Authorized [id number] Closed 06/29/2017 06/29/2018 1 1 Encounter Details Date Type Department Care Team Description 06/29/2017 Radiant Appointment M [facility] Imaging Bebeto Roth S/P spinal fusion Center Una Hartman MD 9 [facility] [address] [place] [address] [phone] Social History Tobacco Use Types Packs/Day Years Used Date Smoking Tobacco: Never Smokeless Tobacco: Never Alcohol Use Standard Drinks/Week Comments No 0 (1 standard drink = 0.6 oz pure alcoho l) Sex Assigned at Date Recorded Not on file documented as of this encounter Plan of Treatment Not on filedocumented as of this encounter Procedures Procedure Name Priority Date/Time Associated Comments Diagnosis XR LEG LENGTH Routine 06/29/2017 1:57 PM S/P spinal fusion Res ults for this EVALUATION CDT procedure are i n the results section. documented in this encounter Results XR Leg Length Evaluation (06/29/2017 1:57 PM CDT) Anatomical Region Laterality Modality Neck Computed Radiography Specimen (Source) Anatomical Location Collection Method / Collectio n Time Received Time / Laterality Volume Impressions 06/29/2017 3:18 PM CDT Impression: 1. Mild convex right curvature of the th oracolumbar/lumbar spine. This decreases with ipsilateral sidebending, as above. 2. No ??global sagittal imbalance. 3. Stable appearance of fusion instrumen tation T10-L3. DANIEL JULES MD (Joe) Narrative 06/29/2017 3:18 PM CDT [...] No substantial global coronal imbalance. Sagittal Vertical [place] (A vertical line drawn from the center [...] a nonobstructive bowel gas pattern. Procedure Note MelissaDaniel, DO - 06/30/19 18 Exam: Full body [...] No substantial global coronal imbalance. Sagittal Vertical [place] (A vertical line drawn from the center [...] appearance of fusion instrumen tation T10-L3. DANIEL JULES MD (Joe) Bebeto Roth MD IMG DIAGNOSTIC IMAGING ORDER TAYLOR documented in this encounter Visit Diagnoses Diagnosis S/P spinal fusion Arthrodesis status documented in this encounter Care Teams Finisher Denture Relationship Specialty Start Date End Date JadaAlexane PCP - General Family Practice 03/12/15 9 MD Ira Glez David Wayne, MD Orthopedics 07/09/[address] [address] Astrid Rios PA-C Physician Last Sawyer Physician Last Sawyer - 07/09/14 Surgical documented as of this encounter
--- OUTSIDE RECORDS SUMMARY | 2021-12-17 15:08 | XMS_ITS | Encounter Summary ---
:1980 Author Organization [place] Address [address] [facility] [place] [address] Care Team Providers Name Role Phone Bebeto Roth MD Unavailable Astrid Rios PA-C Unavailable Keri Elias MD Primary Care Provider Unavailable Encounter Details Date Type Department Care Team Description 09/29/2017 Orders Only [facility] Preop general physical [address] [facility] SE exam 1st Floor [place], [place] [phone] Social History Tobacco Use Types Packs/Day Years Used Date Smoking Tobacco: Never Smokeless Tobacco: Never Alcohol Use Standard Drinks/Week Comments No 0 (1 standard drink = 0.6 oz pure alcoho l) Sex Assigned at Date Recorded Not on file documented as of this encounter Plan of Treatment Not on filedocumented as of this encounter Procedures Procedure Name Priority Date/Time Associated Comments Diagnosis UA MACROSCOPIC WITH Routine 09/29/2017 12:11 Preop general Res ults for this REFLEX TO MICRO AND PM CDT physical exam procedu re are in CULTURE the results section. INR Routine 09/29/2017 12:03 Preop general Results fo r this PM CDT physical exam procedure are in the results section. HEMOGLOBIN A1C Routine 09/29/2017 12:03 Preop general Results for this PM CDT physical exam procedure are in the results section. ABO/RH TYPE AND Routine 09/29/2017 12:03 Preop general Results for this SCREEN PM CDT physical exam procedure are in the results section. BASIC METABOLIC PANEL Routine 09/29/2017 12:03 Preop general R esults for this PM CDT physical exam procedure are in the results section. CBC WITH PLATELETS Routine 09/29/2017 12:03 Preop general Resu lts for this [facility] physical exam procedure are in the results section. documented in this encounter Results (ABNORMAL) UA reflex to Microscopic and Culture (09/29/2017 12:11 PM [facility]) [facility] Method Time Signature Color Urine Yellow 09/29/2017 [facility] 12:41 PM [facility] Appearance Urine Clear 09/29/2017 [facility] 12:41 PM [facility] Glucose Urine Negative NEG^Negat 09/29/2017 [facility] [place] mg/dL 12:41 PM [facility] Bilirubin Urine Negative NEG^Negat 09/29/2017 [facility] [place] 12:41 [facility] Ketones Urine Negative NEG^Negat 09/29/2017 [facility] [place] mg/dL 12:41 PM [facility] Specific [place] 1.013 1.003 - 09/29/2017 [facility] Urine 1.035 12:41 PM [facility] Blood Urine Large (A) NEG^Negat 09/29/2017 [facility] [place] 12:41 PM [facility] pH Urine 6.0 5.0 - 7.0 09/29/2017 [facility] pH 12:41 [facility] Protein Albumin Negative NEG^Negat 09/29/2017 [facility] Urine [place] mg/dL 12:41 PM [facility] Urobilinogen 0.0 0.0 - 2.0 09/29/2017 [facility] mg/dL mg/dL 12:41 PM [facility] Nitrite Urine Negative NEG^Negat 09/29/2017 [facility] [place] 12:41 PM [facility] Leukocyte Negative NEG^Negat 09/29/2017 [facility] Esterase Urine franco 12:41 [facility] Source Midstream 09/29/2017 [facility] Urine 12:16 PM [facility] RBC Urine 3 (H) 0 - 2 09/29/2017 [facility] /HPF 12:41 PM [facility] WBC Urine 1 0 - 5 09/29/2017 [facility] /HPF 12:41 PM [facility] Squamous 3 (H) 0 - 1 09/29/2017 [facility] Epithelial /HPF /HPF 12:41 PM [place] Urine [facility] Transitional Epi <1 (A) FEW^Few 09/29/2017 [facility] /HPF 12:41 PM [facility] Mucous Urine Present (A) NEG^Negat 09/29/2017 [facility] [place] /LPF 12:41 PM [facility] Specimen (Source) Anatomical Collection Method Collection Time Re ceived Time Location / / Volume Laterality Examination of 09/29/2017 12:11 8 midstream urine PM CDT 12:16 PM CDT specimen (procedure) Cameron Manjarrez APRN MANAGER EMBALMER FUNERAL DIRECTOR LAB - URINE ORDERABLES Performing Organization Address City/[facility]/ZIP Code Phon e Number [address] [address] [facility] Hemoglobin A1c (09/29/2017 12:03 PM CDT) P athologist Signature Hemoglobin A1C 5.3 0 - 5.6 % 09/29/2017 [facility] 12:48 PM T [facility] Comment: Normal <5.7% Prediabetes 5.7-6.4% ??Diab etes 6.5% or higher - adopted from ADA consensus guidelines. Specimen Anatomical Collection Method Collection Time Receive d Time (Source) Location / / Volume Laterality Blood specimen 09/29/2017 12:03 8 (specimen) PM CDT 12:04 PM CDT Cameron Manjarrez APRN MANAGER EMBALMER FUNERAL DIRECTOR LAB - BLOOD ORDERABLES Performing Organization Address City/[facility]/ZIP Code Phon e Number [address] [address] [facility] INR (09/29/2017 12:03 PM CDT) P athologist Signature INR 1.02 0.86 - 1.14 09/29/2017 [facility] 12:28 PM CDT [facility] Specimen Anatomical Collection Method Collection Time Receive d Time (Source) Location / / Volume Laterality Blood specimen 09/29/2017 12:03 8 (specimen) PM CDT 12:04 PM CDT Cameron Manjarrez APRN MANAGER EMBALMER FUNERAL DIRECTOR LAB - BLOOD ORDERABLES Performing Organization Address City/[facility]/ZIP Code Phon e Number [address] [address] [facility] (ABNORMAL) CBC with platelets (09/29/2017 12:03 PM CDT) [facility] gist Method Time Signature WBC 4.8 4.0 - 11.0 09/29/2017 [facility] 10e9/L 12:18 PM CDT [facility] RBC Count 4.87 3.8 - 5.2 09/29/2017 [facility] 10e12/L 12:18 PM CDT [facility] Hemoglobin 12.5 11.7 - 09/29/2017 [facility] 15.7 g/dL 12:18 PM CDT [facility] Hematocrit 39.4 35.0 - 09/29/2017 [facility] 47.0 % 12:18 PM CDT [facility] MCV 81 78 - 100 09/29/2017 [facility] fl 12:18 PM CDT [facility] MCH 25.7 (L) 26.5 - 09/29/2017 [facility] 33.0 pg 12:18 PM CDT [facility] MCHC 31.7 31.5 - 09/29/2017 [facility] 36.5 g/dL 12:18 PM CDT [facility] RDW 13.8 10.0 - 09/29/2017 [facility] 15.0 % 12:18 PM CDT [facility] Platelet Count 332 150 - 450 09/29/2017 [facility] 10e9/L 12:18 PM CDT [facility] Specimen Anatomical Collection Method Collection Time Receive d Time (Source) Location / / Volume Laterality Blood specimen 09/29/2017 12:03 8 (specimen) PM CDT 12:04 PM CDT Cameron Manjarrez APRN MANAGER EMBALMER FUNERAL DIRECTOR LAB - BLOOD ORDERABLES Performing Organization Address City/[facility] Code Phon e Number [address] [address] [facility] Basic metabolic panel (09/29/2017 12:03 PM CDT) P athologist Signature Sodium 141 133 - 144 09/29/2017 [facility] mmol/L 12:40 PM CDT [facility] Potassium 3.6 3.4 - 5.3 09/29/2017 [facility] mmol/L 12:40 PM CDT [facility] Chloride 106 94 - 109 09/29/2017 [facility] mmol/L 12:40 PM CDT [facility] Carbon Dioxide 28 20 - 32 09/29/2017 [facility] mmol/L 12:40 PM CDT [facility] Anion Gap 7 3 - 14 09/29/2017 [facility] mmol/L 12:40 PM CDT [facility] Glucose 90 70 - 99 09/29/2017 [facility] mg/dL 12:40 PM CDT [facility] Urea Nitrogen 12 7 - 30 09/29/2017 [facility] mg/dL 12:40 PM CDT [facility] Creatinine 0.85 0.52 - 09/29/2017 [facility] 1.04 mg/dL 12:40 PM CDT [facility] GFR Estimate 76 >60 09/29/2017 [facility] mL/min/1.7 12:[address] Comment: Non GFR Calc GFR Estimate If >90 >60 mL/min/1.7m2 09/29/2017 12:40 PM [facility] Black CDT [facility] Comment: GFR Calc Calcium 8.8 8.5 - 10.1 mg/dL 09/29/2017 12:40 PM CDT [facility] Specimen Anatomical Collection Method Collection Time Receive d Time (Source) Location / / Volume Laterality Blood specimen 09/29/2017 12:03 8 (specimen) PM CDT 12:04 PM CDT Cameron Manjarrez APRN MANAGER EMBALMER FUNERAL DIRECTOR LAB - BLOOD ORDERABLES Performing Organization Address City/State/ZIP Code Phon e Number [place] [phone] [facility] ABO/Rh type and screen (09/29/2017 12:03 PM CDT) Patholo gist Method Time Signature ABO O 09/29/2017 [facility] 1:31 PM CDT [facility] RH(D) Pos [facility] Antibody Neg 09/29/2017 [facility] Screen 1:31 PM CDT [facility] Test Valid [facility] 09/29/2017 [facility] 12:46 PM CDT [facility] Hospital Specimen 10/26/2017 10/23/2017 [facility] Expires 6:57 AM CDT [facility] Blood Bank Pre admission 09/29/2017 [facility] Comment form received 4:03 PM CDT [facility] 09/29/17 for [facility] 10/23/17. AA Specimen Anatomical Collection Method Collection Time Receive d Time (Source) Location / / Volume Laterality Blood specimen 09/29/2017 12:03 8 (specimen) PM CDT 12:04 PM CDT Cameron Manjarrez APRN MANAGER EMBALMER FUNERAL DIRECTOR LAB - BLOOD BANK TEST ORDER Performing Organization Address City/State/ZIP Code Phon e Number [facility] [address] [place] [address] [facility] [address] [place] [address] [facility] documented in this encounter Visit Diagnoses Diagnosis Preop general physical exam Other specified pre-operative examinatio n documented in this encounter Care Teams Business Planner Relationship Specialty Start Date End Date Keri Elias PCP - General Family Practice 03/12/15 9 MD Ira Glez David Wayne, MD Orthopedics 07/09/[address] [place] [address] Astrid Rios PA-C Physician Senior Java Web Developer Physician Senior Java Web Developer - 07/09/14 Surgical documented as of this encounter
--- OUTSIDE RECORDS SUMMARY | 2021-12-17 15:08 | XMS_ITS | Encounter Summary ---
:1980 Author Organization [place] Address [address] [place] [address] Care Team Providers Name Role Phone Bebeto Roth MD Unavailable Astrid Rios PA-C Unavailable Keri Elias MD Primary Care Provider Unavailable Reason for Visit Diagnostic Imaging XR - Closed Specialty Diagnoses / Procedures Referred By Contact Refer red To Contact Diagnoses Pain Bebeto Roth MD Procedures XR Leg Length Evaluation [address] [facility] [address] [place], [place] [address] Referral ID Status Reason Start Date Expiration Date Visits Requ ested Visits Authorized [id number] Closed 03/30/2017 03/30/2018 1 1 Encounter Details Date Type Department Care Team Description 03/30/2017 Radiant Appointment [facility] Chan Roth Pain Farhanaay MD Devan 9 [facility] SE [address] 1[address] [place] [phone] Social History Tobacco Use Types Packs/Day [...] Associated Comments Diagnosis XR LEG LENGTH Routine 03/30/2017 12:42 PM Pain Results for this EVALUATION FARM MECHANIC APPRENTICE procedure are i n the results section. documented in this encounter Results XR Leg Length Evaluation (03/30/2017 12:42 PM FARM MECHANIC APPRENTICE) Anatomical Region Laterality Modality Neck Computed Radiography Specimen (Source) Anatomical Location Collection Method / Collectio n Time Received Time / Laterality Volume Impressions 03/30/2017 1:17 PM FARM MECHANIC APPRENTICE Impression: 1. Mild right convexed curvature of the main thoracic spine. 2. No ??global sagittal imbalance. 3. Weight bearing axis as detailed above . 4. Stable posterior instrumented fusion from T10 to L3 ALISHA POPE MD Narrative 03/30/2017 1:17 PM FARM MECHANIC APPRENTICE EXAMINATION: XR SPINE COMPLETE 2 VW, XR [...] No substantial global coronal imbalance. Sagittal Vertical [place] (A vertical line drawn from the center [...] No substantial global coronal imbalance. Sagittal Vertical [place] (A vertical line drawn from the center [...] documented in this encounter Visit Diagnoses Diagnosis Pain Generalized pain documented in this encounter Care Teams Last Model Department Supervisor Relationship Specialty Start Date End Date Keri Elias PCP - General Family Practice 03/12/15 9 MD Ira Glez David Wayne, MD Orthopedics 07/09/14 [address] [facility] [address] [place] [address] Astrid Rios PA-C Physician Job Development Specialist Physician Job Development Specialist - 07/09/14 Surgical documented as of this encounter
--- OUTSIDE RECORDS SUMMARY | 2021-12-17 15:08 | XMS_ITS | Encounter Summary ---
:1980 Author Organization [facility] Address [address] [facility] [place] [address] Care Team Providers Name Role Phone Bebeto Roth MD Unavailable Astrid Rios PA-C Unavailable Keri Elias MD Primary Care Provider Unavailable Reason for Visit Reason Comments UTI Encounter Details Date Type Department Care Team Description 07/05/2017 Office Visit [facility] Lakisha Cantu, Bladder in fection (Primary Dx); Medicine Clinic DO Environmental allergies; [address] [facility] D[facility]atitis [address] [place], [place] [phone] [id number] Social History Tobacco Use Types Packs/Day Years Used Date Smoking Tobacco: Never Smokeless Tobacco: Never Alcohol Use Standard Drinks/Week Comments No 0 (1 standard drink = 0.6 oz pure alcoho l) Sex Assigned at Date Recorded Not on file documented as of this encounter Last Filed Vital Signs Vital Sign Reading Time Taken Comments Blood Pressure 106/71 07/05/2017 9:37 AM CDT Pulse 89 07/05/2017 9:37 AM CDT Temperature - - Respiratory Rate 14 07/05/2017 9:37 AM CDT Oxygen Saturation 100% 07/05/2017 9:37 AM CDT Inhaled Oxygen Concentration - - Weight 70.8 kg (156 lb) 07/05/2017 9:37 AM CDT Height - - Body Mass Index 27.42 06/29/2017 2:39 PM CDT documented in this encounter Progress Notes Lakisha Cantu DO - 07/05/2017 9:40 AM CDT HPI: Azul Garg is a 36 year old who presents for the following Patient presents with: UTI Urinary Tract Symptoms Onset: possible bladder infection ?? Description: Painful urination (Dysuria): Yes Frequent urination: Yes Need to urinate urgently: Yes Blood in urine (Hematuria):no Delay in urine (Hesitency): Yes ?? Intensity: moderate ?? Progression of Symptoms: worsening ?? Accompanying Signs & Symptoms: Fever/chills: no Flank pain no Nausea and vomiting: Yes Any vaginal discharge/symptoms: {no Abdominal/Pelvic Pain: no ?? History: History of frequent UTI's: yes History of kidney stones: no Sexually Active: Yes Possibility of :no ?? What makes it worse?: nothing Therapies Tried and outcome: Phenazopyridine Was given Macrobid by urgent care, not helping. Problem, Medication and Allergy Lists were reviewed and are current. Patient is an established patient of this clinic. Review of Systems: Review of Systems As per HPI Physical Exam: Patient Vitals for the past 24 hrs: BP Pulse Resp SpO2 Weight 07/05/17 0937 106/71 89 14 100 % 156 lb (70.8 kg) Body mass index is 27.42 kg/(m^2). Vitals were reviewed and were normal Physical Exam Constitutional: She is oriented to person, place, and time. She appears well-developed. HENT: Head: Normocephalic and atraumatic. Eyes: Conjunctivae are normal. Neck: Normal range of motion. Neck supple. Pulmonary/Chest: Effort normal. Neurological: She is alert and oriented to person, place, and time. Skin: Skin is warm and dry. Psychiatric: She has a normal mood and affect. Her behavior is normal. Judgment and thought content normal. Results: Results from the last 24 hours Results for orders placed or performed in visit on 07/05/17 (from the past 24 hour(s)) Urinalysis, Micro If (UA) ([facility]) Result Value Ref Range Specific [place] Urine 1.020 1.005 - 1.030 pH Urine 6.5 4.5 - 8.0 Leukocyte Esterase UR Negative NEGATIVE Nitrite Urine Positive (A) NEGATIVE Protein UR 1+ (A) NEGATIVE Glucose Urine Trace (A) NEGATIVE Ketones Urine Negative NEGATIVE Urobilinogen mg/dL 1.0 E.U./dL 0.2 E.U./dL Bilirubin UR 1+ (A) NEGATIVE Blood UR 3+ (A) NEGATIVE Assessment and Plan Azul was seen today for uti. Diagnoses and all orders for this visit: Bladder infection Switch to Keflex (prior culture sensitive to this. F/u urine culture. - Urinalysis, Micro If (UA) ([facility]) - cephALEXin (KEFLEX) 500 MG capsule; Take 1 capsule (500 mg) by mouth 2 times daily - Urine Culture Aerobic Bacterial Environmental allergies - fluticasone (FLONASE) 50 MCG/ACT spray; [place] 1-2 sprays into both nostrils daily Dermatitis - hydrocortisone acetate 1 % CREA; Externally apply topically 3 times daily Not more than 14 days lev streach There are no discontinued medications. Options for treatment and follow-up care were reviewed with the patient. Azul Alejo Irma Garg engaged in the decision making process and verbalized understanding of the options discussed and agreed with the final plan. Lakisha Cantu DO documented in this encounter Plan of Treatment Not on filedocumented as of this encounter Procedures Procedure Name Priority Date/Time Associated Diagnosis Comme nts URINE CULTURE Routine 07/05/2017 12:58 PM Bladder infection Re sults for this CDT procedure are i n the results section. URINALYSIS, MICRO Routine 07/05/2017 9:39 AM Bladder infection Results for this IF ([facility]) CDT procedure are i n the results section. documented in this encounter Results Urine Culture Aerobic Bacterial (07/05/2017 12:58 PM CDT) Component Value Ref Test Analysis Performed At [facility] gist Range Method Time Signature Specimen Midstream Urine INFECTIOUS Description DISEASE DIAGNOSTIC LABORATORY Special Specimen 07/05/2017 [facility] received in 4:48 PM CDT [facility] preservative [facility] Culture Micro No growth 07/06/2017 INFECTIOUS 10:09 PM DISEASE CDT DIAGNOSTIC LABORATORY Specimen (Source) Anatomical Collection Method Collection Time Re ceived Time Location / / Volume Laterality Examination of 07/05/2017 12:58 8 1:02 midstream urine PM CDT PM CDT specimen (procedure) Lakisha Cantu DO LAB - MICRO GENERAL ORDERABL ES Performing Organization Address City/State/ZIP Code Phon e Number INFECTIOUS DISEASES [address] [place] [address] DIAGNOSTIC LABORATORY, [facility] INFECTIOUS DISEASE [address] [place] [address], [facility] DIAGNOSTIC LABORATORY [address] [address], [facility] (ABNORMAL) Urinalysis, Micro If (UA) ([facility]) (07/05/2017 9:39 AM CDT) [facility] gist Method Time Signature Specific [place] 1.020 1.005 - [facility] Urine 1.030 [facility] pH Urine 6.5 4.5 - 8.0 [facility] Leukocyte Negative NEGATIVE [facility] Esterase UR [facility] Nitrite Urine Positive (A) NEGATIVE [facility] Protein UR 1+ (A) NEGATIVE [facility] Glucose Urine Trace (A) NEGATIVE [facility] Ketones Urine Negative NEGATIVE [facility] Urobilinogen 1.0 E.U./dL 0.2 E.U./dL [facility] mg/dL [facility] Bilirubin UR 1+ (A) NEGATIVE [facility] Blood UR 3+ (A) NEGATIVE [facility] Specimen Anatomical Collection Method Collection Time Receive d Time (Source) Location / / Volume Laterality Urine specimen 07/05/2017 9:39 AM 018 9:39 (specimen) CDT AM CDT Lakisha Cantu DO LAB - [facility] Performing Organization Address City/State/ZIP Code Phon e Number [facility] [address] [place] [phone] [facility] documented in this encounter Visit Diagnoses Diagnosis Bladder infection - Primary Cystitis, unspecified Environmental allergies Allergic rhinitis, cause unspecified Dermatitis Contact dermatitis and other eczema, due to unspecified cause documented in this encounter Care Teams Entry Specialists Relationship Specialty Start Date End Date Keri Elias PCP - General Family Practice 03/12/15 9 MD Ira Glez, Bebeto Hartman MD Orthopedics 07/09/[address] [facility] [place] [address] Astrid Rios PA-C Physician [employer] Librarian Physician [employer] Librarian - 07/09/14 Surgical documented as of this encounter
--- OUTSIDE RECORDS SUMMARY | 2021-12-17 15:08 | XMS_ITS | Encounter Summary ---
:1980 Author Organization [facility] Address [address] [place] [address]. [place] [address] Care Team Providers Name Role Phone Bebeto Roth MD Unavailable Astrid Rios PA-C Unavailable Keri Elias MD Primary Care Provider Unavailable Reason for Visit Auth/Cert Specialty Diagnoses / Procedures Referred By Contact Refer red To Contact Surgery Diagnoses Scoliosis Kyphosis Ur Periop Procedures [facility] [address] [place] [phone] Phone: Fax: Referral ID Status Reason Start Date Expiration Date Visits Requ ested Visits Authorized [id number] 1 1 Encounter Details Date Type Department Care Team Description 10/23/2017 Anesthesia Event [facility] Sarah Parry MD [facility] [address] [place], [place] [address] PeriOp Services Bryan Tejeda, MARKET SUR[employer]Y REPRESENTATIVE [employer] [address] [place] [id number] [place] [phone] Anesthesia Record Procedure Summary Procedure Name Responsible Anesthesia Start Anesthesia Stop Anesthesiologist Time Time Extension Of Fusion Sarah Parry MD 10/23/17 0740 10/23 1213 Thoracic 4-Thoracic 10, Rivera Khan Osteotomies Thoracic 6-10 (Spine) Events Date Time Event Comment 10/23/2017 0644 0740 An Start 0740 An Start Data 0741 MD Present 0747 An Induction 0748 An Intubation 0749 AN START SEVO 0755 Anesthesia Complete 0758 MD Present 0800 Initial Antibiotic (Started) 0833 MD Present Present for pron e position. Eyes/nose clear. Bilateral BS rechecked, clear and equal. All press ure points padded. Head neutral. 0843 AN INCISION 0941 MD Present 1109 MD Present 1140 AN END SEVO 1151 MD Present 1201 MD Present 1205 AN Extubation 1210 MD Present 1212 an stop data 1213 An Stop Electronically s igned by Bryan Tejeda on October 23, 2017 12:13 PM 1214 MD Present Name Total midazolam 1mg/mL 2 mg fentaNYL (SUBLIMAZE) injection 225 mcg lidocaine 2% 80 mg propofol (DIPRIVAN) injection 10 mg/mL vial 300 mg succinylcholine 20 mg/mL 100 mg rocuronium 10mg/mL 30 mg dexamethasone 4mg/mL 10 mg ondansetron 2mg/mL 4 mg HYDROmorphone 0.5 mg phenylephrine (MARY-SYNEPHRINE) injection 1 mg 100 mcg sugammadex 200 mg/2ml 150 mg lidocaine 400 mg in D5W 50 ml (ADULT STD) mixture - fo r ANALGESIA 198.66 mg propofol (DIPRIVAN) infusion 1,794.85 mg ceFAZolin (ANCEF) intermittent infusion 2 g in 100 mL dextrose PRE-MIX 3 g tranexamic acid (CYKLOKAPRON) 2,070 mg in sodium chlor negin 0.9 % 50 mL 2,070 g bolus tranexamic acid (CYKLOKAPRON) 4 g in sodium chloride 0 .9 % 200 mL 1,894.75 mg infusion LR 1,000 mL LR 450 mL Agents Name NO HELIOX O2 N2O Air Exp Sevoflurane Exp Isoflurane Exp Desflurane Exp N2O Ins Sevoflurane Ins Isoflurane Ins Desflurane O2 Auxiliary Blood No blood administrations on file. Lines, Drains, and Airways Type Details Placement Removal Incision/Surgical Site 10/23/17; 1118; Back 10/23/17 1118 by Yohan Molina RN Urethral Catheter 10/23/17; No; 10/23/17 0000 by 10/24/17 1130 by Anesthesia; 16 fr Cristóbal Ryan RN Hoppe, Aman da, RN Peripheral IV 10/23/17; 0648; 18 G; 10/23/17 0648 by 10/23/17 2100 by Left; Lower forearm; Deanna Bright RN Chantar a, Injectable Alexander, RN RETIRED ETT 10/23/17; 0748; Mask 10/23/17 0748 by 10/23/17 1 205 by Ventilation: Easy; Bryan Tejeda Leyh, R ichard Ease of Intubation: BLAYNE Lynch CRNA, CRNA; Airway Size: 6.5; Cuffed; Oral; Blade Type: C-Mac; Blade Size: 4; Place by: Juanis Tejeda CRNA; Insertion Attempts: 1; Secured at (cm)to lip: 22 cm; Breath Sounds: Equal, clear and bilateral; End Tidal CO2: Present; Dentition: Intact, Unchanged; Grade View of Cords: 1 Peripheral IV 10/23/17; 0753; 20 G; 10/23/17 0753 by 10/24/17 0000 by Right; Lower forearm; Bryan Tejeda Petr ini, Julia C, Alcohol; None; BLAYNE PENALOZA RN Tolerated well Closed/Suction Drain 10/23/17; 1119; Back; 10/23/17 1119 by 10/14 04/02 1100 by Accordion; 10 Yohan Berumen RN Petrini, Julia C, RN documented in this encounter Social History Tobacco Use Types Packs/Day Years Used Date Smoking Tobacco: Never Smokeless Tobacco: Never Alcohol Use Standard Drinks/Week Comments No 0 (1 standard drink = 0.6 oz pure alcoho l) Sex Assigned at Date Recorded Not on file documented as of this encounter OR Notes Anesthesia Postprocedure Evaluation - Sarah Parry MD - 10/23/2017 1:15 PM CDT Patient: Jocelin Garg Procedure(s): Extension Of Fusion Thoracic 4-Thoracic 10, Rivera Khan Osteotomies Thoracic 6-10 - Wound Class: I-Clean Diagnosis:Scoliosis Kyphosis Diagnosis Additional Information: No value filed. Anesthesia Type: General, ETT Note: Anesthesia Post Evaluation Patient location during evaluation: PACU Patient participation: Able to fully participate in evaluation Level of consciousness: awake Pain management: adequate Airway patency: patent Cardiovascular status: acceptable Respiratory status: acceptable Hydration status: acceptable PONV: none Anesthetic complications: None Comments: Seen at the bedside prior to discharge. Awake in NAD. Comfortable. Voicing no complaints. VSS. Good pain control. Will discharge to the floor soon. Dr. Sarah Parry MD Anesthesia 10/23/2017 @ 1315 pm. Last vitals: Vitals: 10/23/17 1237 10/23/17 1245 10/23/17 1300 BP: 100/57 128/78 Pulse: Resp: 12 Temp: 36.6 ??C (97.9 ??F) SpO2: 100% 97% Electronically Signed By: Sarah Parry MD October 23, 2017 1:15 PM Anesthesia Preprocedure Evaluation - Sarah Parry MD - 10/23/2017 6:22 AM CDT Physical Exam Normal systems: pulmonary and dental Airway Mallampati: I TM distance: >3 FB Neck ROM: full Dental Cardiovascular Pulmonary Other findings: Small mouth, anterior. Anesthesia Plan History & Physical Review History and physical reviewed and following examination; no interval change. ASA Status: 2 . NPO Status: > 6 hours Plan for General and ETT with Propofol induction. Maintenance will be Balanced. PONV prophylaxis: Ondansetron (or other 5HT-3) and Dexamethasone or Solumedrol Additional equipment: 2nd IV, Arterial Line and Videolaryngoscope ?? Hide copied text Hover for attribution information ?? Anesthesia Evaluation ?? . Pt has had prior anesthetic. Type: General and MAC ? ROS/MED HX ?? ENT/Pulmonary: - neg pulmonary ROS Neurologic: - [...] other significant disability - neg other ROS ? Physical Exam Normal systems: cardiovascular, pulmonary and dental ?? Airway Mallampati: II TM distance: >3 FB Neck ROM: full ?? Dental ?? Cardiovascular Rhythm and rate: regular and normal ?? Pulmonary breath sounds clear to auscultation ?? Other findings: Results for JOCELIN PINEDO ( ) as of 09/29/2017 13:47 ?? 09/29/2017 12:03 Sodium: 141 Potassium: 3.6 Chloride: 106 Carbon Dioxide: 28 Urea Nitrogen: 12 Creatinine: 0.85 GFR Estimate: 76 GFR Estimate If Black: >90 Calcium: 8.8 Anion Gap: 7 Hemoglobin A1C: 5.3 Glucose: 90 WBC: 4.8 Hemoglobin: 12.5 Hematocrit: 39.4 Platelet Count: 332 RBC Count: 4.87 MCV: 81 MCH: 25.7 (L) MCHC: 31.7 RDW: 13.8 INR: 1.02 ABO: O RH(D): Pos Antibody Screen: Neg Test Valid Only At: [facility]. Specimen Expires: 10/02/2017 ?? 09/29/2017 12:11 Color Urine: Yellow Appearance Urine: Clear Glucose Urine: Negative Bilirubin Urine: Negative Ketones Urine: Negative Specific Jakin Urine: 1.013 pH Urine: 6.0 Protein Albumin Urine: Negative Urobilinogen mg/dL: 0.0 Nitrite Urine: Negative Blood Urine: Large (A) Leukocyte Esterase Urine: Negative Source: Midstream Urine WBC Urine: 1 RBC Urine: 3 (H) Squamous Epithelial /HPF Urine: 3 (H) Transitional Epi: <1 (A) Mucous Urine: Present (A) ? PAC Discussion and Assessment ?? ASA Classification: 2 Case is suitable for: [place] Anesthetic techniques and relevant risks discussed: GA Invasive monitoring and risk discussed: Yes Types: Possibility and Risk of blood transfusion discussed: Yes NPO instructions given: Additional anesthetic preparation and risks discussed: Needs early admission to pre-op area: Other: ?? PAC Resident/PRIMER POWDER BLENDER WET Anesthesia Assessment: Jocelin Garg is a 37 yo female scheduled for Extension Of Fusion Thoracic 10- Thoracic 3/4, Rivera Khan Osteotomies Thoracic 1-10 on 10/23/[address] Roth in treatment of scoliosis ? Previous anesthesia without complications ?? 1) Cardiac: No known cardiac diagnosis. She [...] shown a loose screw in upper back. ? I spent 30 minutes with patient, greater than 50% educating on preop meds, counseling on anesthesia and coordinating care for back surgery ? Reviewed and Signed by PAC Mid-Level Provider/Resident Mid-Level Provider/Resident: Ct Manjarrez, BLAYNE Date: 09/29/2017 Time: 1030 ?? Attending Anesthesiologist Anesthesia Assessment: 37 year old for revision of prior scoliosis surgery; now for complex spine surgery T1-T10. Patient has no significant cardiac or pulmonary disease, normal 9 months ago. ?? Patient/case discussed with ANANTH. No need to see patient. Patient is appropriate for the planned procedure without further work-up or medical management. ?? Patient is ERAS for Complex Spine, we have written the orders. ? Reviewed and Signed by PAC Anesthesiologist Anesthesiologist: tevin Date: 09/29/2017 Time: Pass/Fail: Pass Disposition: ?? PAC Pharmacist Assessment: ?? Pharmacist: Date: Time: ?? Hide copied text Hover for attribution information ?? Anesthesia Evaluation ?? . Pt has had prior anesthetic. Type: General and MAC ? ROS/MED HX ?? ENT/Pulmonary: - neg pulmonary ROS Neurologic: - [...] other significant disability - neg other ROS ? Physical Exam Normal systems: cardiovascular, pulmonary and dental ?? Airway Mallampati: II TM distance: >3 FB Neck ROM: full ?? Dental ?? Cardiovascular Rhythm and rate: regular and normal ?? Pulmonary breath sounds clear to auscultation ?? Other findings: Results for JOCELIN PINEDO ( ) as of 09/29/2017 13:47 ?? 09/29/2017 12:03 Sodium: 141 Potassium: 3.6 Chloride: 106 Carbon Dioxide: 28 Urea Nitrogen: 12 Creatinine: 0.85 GFR Estimate: 76 GFR Estimate If Black: >90 Calcium: 8.8 Anion Gap: 7 Hemoglobin A1C: 5.3 Glucose: 90 WBC: 4.8 Hemoglobin: 12.5 Hematocrit: 39.4 Platelet Count: 332 RBC Count: 4.87 MCV: 81 MCH: 25.7 (L) MCHC: 31.7 RDW: 13.8 INR: 1.02 ABO: O RH(D): Pos Antibody Screen: Neg Test Valid Only At: [facility] Specimen Expires: 10/02/2017 ?? 09/29/2017 12:11 Color Urine: Yellow Appearance Urine: Clear Glucose Urine: Negative Bilirubin Urine: Negative Ketones Urine: Negative Specific Jakin Urine: 1.013 pH Urine: 6.0 Protein Albumin Urine: Negative Urobilinogen mg/dL: 0.0 Nitrite Urine: Negative Blood Urine: Large (A) Leukocyte Esterase Urine: Negative Source: Midstream Urine WBC Urine: 1 RBC Urine: 3 (H) Squamous Epithelial /HPF Urine: 3 (H) Transitional Epi: <1 (A) Mucous Urine: Present (A) ? PAC Discussion and Assessment ?? ASA Classification: 2 Case is suitable for: [place] Anesthetic techniques and relevant risks discussed: GA Invasive monitoring and risk discussed: Yes Types: Possibility and Risk of blood transfusion discussed: Yes NPO instructions given: Additional anesthetic preparation and risks discussed: Needs early admission to pre-op area: Other: ?? PAC Resident/PRIMER POWDER BLENDER WET Anesthesia Assessment: Jocelin Garg is a 37 yo female scheduled for Extension Of Fusion Thoracic 10- Thoracic 04/16, Rivera Khan Osteotomies Thoracic 1-10 on 10/23/[address] Roth in treatment of scoliosis ? Previous anesthesia without complications ?? 1) Cardiac: No known cardiac diagnosis. She [...] shown a loose screw in upper back. ? I spent 30 minutes with patient, greater than 50% educating on preop meds, counseling on anesthesia and coordinating care for back surgery ? Reviewed and Signed by PAC Mid-Level Provider/Resident Mid-Level Provider/Resident: Ct Manjarrez, BLAYNE Date: 09/29/2017 Time: 1030 ?? Attending Anesthesiologist Anesthesia Assessment: 37 year old for revision of prior scoliosis surgery; now for complex spine surgery T1-T10. Patient has no significant cardiac or pulmonary disease, normal 9 months ago. ?? Patient/case discussed with ANANTH. No need to see patient. Patient is appropriate for the planned procedure without further work-up or medical management. ?? Patient is ERAS for Complex Spine, we have written the orders. ? Reviewed and Signed by PAC Anesthesiologist Anesthesiologist: tevin Date: 09/29/2017 Time: Pass/Fail: Pass Disposition: ?? PAC Pharmacist Assessment: ?? Pharmacist: Date: Time: PAC Consultation reviewed and appreciated. Postoperative Care Postoperative pain management: IV analgesics. Consents Anesthetic plan, risks, benefits and alternatives discussed with: Patient and Spouse.. [facility] for Optical Tracking System Spinal Fusion, 3+ levels, with cell saver and neuro monitoring. Will plan for 2nd IV and Arterial line placement after induction. Risks, benefits and possible complications of GETA discussed in full with the patient and her . She voices understanding and wishes to proceed. Dr. Sarah Parry MD Anesthesia 10/23/2017 @ 0642 am. documented in this encounter Miscellaneous Notes Anesthesia Care Transfer Note - Bryan Tejeda APRN CRNA - 10/23/2017 12:12 PM CDT Patient: Jocelin Garg Procedure(s): Extension Of Fusion Thoracic 4-Thoracic 10, Rivera Khan Osteotomies Thoracic 6-10 - Wound Class: I-Clean Diagnosis: Scoliosis Kyphosis Diagnosis Additional Information: No value filed. Anesthesia Type: General, ETT Note: Airway :Face Mask and Oral Airway Patient transferred to:PACU Comments: Arrived in PACU, report to RN, vitals stable, patient comfortable. Handoff Report: Identifed the Patient, Identified the Reponsible Provider, Reviewed the pertinent medical history, Discussed the surgical course, Reviewed Intra-OP anesthesia mangement and issues during anesthesia, Set expectations for post-procedure period and Allowed opportunity for questions and acknowledgement of understanding Vitals: (Last set prior to Anesthesia Care Transfer) CA VITALS 10/23/2017 1142 - 10/23/2017 1212 10/23/2017 Resp Rate (observed): (!) 1 Electronically Signed By: Bryan Tejeda APRN CRNA October 23, 2017 12:12 PM documented in this encounter Plan of Treatment Not on filedocumented as of this encounter Visit Diagnoses Not on filedocumented in this encounter Administered Medications Inactive Administered Medications - up to 3 most recent administrations Medication Order MAR Action Action Date Dose Rate Site ceFAZolin (ANCEF) intermittent Given 10/23/2017 9:37 AM CDT 1 g infusion 2 g in 100 mL dextrose PRE-MIX Routine, 2 g, Intravenous, PRE-OP/PRE-PROCEDURE, Starting on Mon10/23/17 at 0544, For 1 dose, Give first dose within 1 hour PRIOR to incision. If patient weight is greater than or equal to 120 kg increase dose to 3 g., Indications: Perioperative Pharmacoprophylaxis, Pre-procedure Given 10/23/2017 8:00 AM CDT 2 g dexamethasone (DECADRON) injection Given 10/23/2017 8:07 AM CDT 10 mg Intravenous, PRN, Administer over 1 Minutes, Starting on Mon10/23/17 at 0807, Anesthesia Intra-op fentaNYL (PF) (SUBLIMAZE) injection Given 10/23/2017 11:06 AM CDT 50 mcg Intravenous, PRN, moderate to severe pain, Administer over 3-5 Minutes, Starting on Mon10/23/17 at 0740, Anesthesia Intra-op Given 10/23/2017 10:06 AM CDT 50 mcg Given 10/23/2017 9:00 AM CDT 50 mcg HYDROmorphone (DILAUDID) injection Given 10/23/2017 11:08 AM CDT 0.5 mg Intravenous, PRN, moderate to severe pain, Starting on Mon10/23/17 at 1108, Anesthesia Intra-op lactated ringers infusion New Bag 10/23/2017 7:40 AM CDT Intravenous, CONTINUOUS PRN, Anesthesia Intra-op, Starting on Mon10/23/17 at 0740, Until Mon10/23/17 at 1213 lactated ringers infusion New Bag 10/23/2017 7:55 AM CDT Intravenous, CONTINUOUS PRN, Anesthesia Intra-op, Starting on Mon10/23/17 at 0755, Until Mon10/23/17 at 1213 lidocaine 400 mg in D5W 50 ml New Bag 10/23/2017 8:09 AM CDT 1 mg/kg/hr 8.6 mL/hr (ADULT STD) mixture - for ANALGESIA 1-1.5 mg/kg/hr ? 68.9 kg (8.6125-12.9188 mL/hr, rounded to 8.6-12.9 mL/hr), Intravenous, CONTINUOUS, Starting on Mon10/23/17 at 0745, Anesthesia Provider to titrate intraop. For use in OR., Intra-procedure lidocaine injection 2% (MDV) Given 10/23/2017 7:47 AM CDT 80 mg Intravenous, PRN, Starting on Mon10/23/17 at 0747, Anesthesia Intra-op midazolam (VERSED) injection Given 10/23/2017 7:40 AM CDT 2 mg Intravenous, Administer over 2 Minutes, PRN, anxiety, Starting on Mon10/23/17 at 0740, Anesthesia Intra-op ondansetron (ZOFRAN) injection Given 10/23/2017 11:03 AM CDT 4 mg Intravenous, PRN, nausea, vomiting, Administer over 2-5 Minutes, Starting on Mon10/23/17 at 1103, Anesthesia Intra-op phenylephrine (MARY-SYNEPHRINE) injection 1 New Bag 10/23 8:25 AM CDT 100 mcg mg 1 mg, Intravenous, CONTINUOUS PRN, Starting on Mon10/23/17 at 0825, Anesthesia Intra-op propofol (DIPRIVAN) Rate/Dose Change 10/23/2017 11:02 50 mcg/kg/min 2 0.7 mL/hr infusion AM CDT 25-150 mcg/kg/min ? 68.9 kg (10.335-62.01 mL/hr, rounded to 10.3-62 mL/hr), Intravenous, CONTINUOUS, Starting on Mon10/23/17 at 0545, Medication will be administered Intra-operatively., Pre-procedure, Population for use? OR / Pain Management Rate/Dose Change 10/23/2017 9:06 AM CDT 125 mcg/kg/min 51.7 mL/hr Rate/Dose Change 10/23/2017 8:51 AM CDT 150 mcg/kg/min 62 mL/hr propofol (DIPRIVAN) injection 10 mg/mL v ial Given 10/23/2017 8:49 AM CDT 50 mg Intravenous, PRN, Starting on Mon10/23/17 at 0747, Anesthesia Intra-op Given 10/23/2017 8:41 AM CDT 50 mg Given 10/23/2017 7:47 AM CDT 200 mg rocuronium (ZEMURON) injection Given 10/23/2017 8:53 AM CDT 30 mg Intravenous, PRN, Starting on Mon10/23/17 at 0853, Anesthesia Intra-op succinylcholine (ANECTINE) injection Given 10/23/2017 7:48 AM CDT 100 mg Intravenous, PRN, Starting on Mon10/23/17 at 0748, Anesthesia Intra-op sugammadex (BRIDION) injection Given 10/23/2017 11:41 AM CDT 150 mg PRN, Starting on Mon10/23/17 at 1141, Anesthesia Intra-op tranexamic acid (CYKLOKAPRON) 2,070 mg in New Bag 2017 8:00 AM CDT 2,070 g sodium chloride 0.9 % 50 mL bolus 2,070 mg (rounded from 2,067 mg = 30 mg/kg ? 68.9 kg), Intravenous, ONCE, On Mon10/23/17 at 0730, For 1 dose, Each 1 gram to be infused over 10 minutes., Pre-procedure tranexamic acid (CYKLOKAPRON) New Bag 10/23/2017 8:30 AM CDT 1 0 mg/kg/hr 34.5 mL/hr 4 g in sodium chloride 0.9 % 200 mL infusion 10 mg/kg/hr ? 68.9 kg (34.45 mL/hr, rounded to 34.5 mL/hr), Intravenous, CONTINUOUS, Starting on Mon10/23/17 at 0800, 10 mg/kg/hr = 34.5 ml/hr, Intra-procedure documented in this encounter Care Teams Electrical And Electronic Assembler Relationship Specialty Start Date End Date Keri Elias PCP - General Family Practice 03/12/15 9 MD Ira Glez David Wayne, MD Orthopedics 07/09/14 [facility] [place] [address] Astrid Rios PA-C Physician Mission Commander Physician Mission Commander - 07/09/14 Surgical documented as of this encounter
--- OUTSIDE RECORDS SUMMARY | 2021-12-17 15:08 | XMS_ITS | Encounter Summary ---
:1980 Author Organization [place] Address [facility] [place] [address] Care Team Providers Name Role Phone Bebeto Roth MD Unavailable Astrid Rios PA-C Unavailable Keri Elias MD Primary Care Provider Unavailable Encounter Details Date Type Department Care Team Description 09/29/2017 Allied Health/Nurse [facility] Preoperative Rn, Pac Visit Assessment Center [address] [place] [address] 5th Floor [place] [phone] Social History Tobacco Use Types Packs/Day Years Used Date Smoking Tobacco: Never Smokeless Tobacco: Never Alcohol Use Standard Drinks/Week Comments No 0 (1 standard drink = 0.6 oz pure alcoho l) Sex Assigned at Date Recorded Not on file documented as of this encounter Patient Instructions Patient InstructionsMalena Banda RN - 09/29/2017 11:00 AM CDT Preparing for Your Surgery Name: Azul Garg : 1980 Today's Date: 09/29/2017 Arriving for surgery: Surgery date: 10/23/17 Arrival time: 5:30 am Please come to: [facility] [address] [place] [address] -Operational Risk Analyst parking is available in front of [facility] from 5:15AM to 8:00PM. If you prefer, park your car in the Green Lot. -Proceed to the 3rd floor, check in at the Adult Surgery Waiting Lounge. [phone] If an escort is needed stop at the Information Desk in the lobby. Inform the information person thatyou are here for surgery. An escort to the Adult Surgery Waiting Lounge will be provided. - Bring your ID and insurance card. Enhanced Recovery After Surgery This is a team effort, including you, to get you back on your feet, eating and drinking normally and out of the hospital as quickly as possible. The goals are: 1) NO INFECTIONS and 2) RETURN TO NORMAL DIET How can we achieve these goals? 1) STAY ACTIVE: Walk every day before your surgery; try to increase the amount every day. Walk aftersurgery as much as you can-the nurses will help you. Walking speeds healing and gets you home quicker, you heal better at home and have less risk of infection. 2) INCENTIVE SPIROMETER: Practice your incentive spirometer 4 times per day with 5-10 repetitions each time. Using the incentive spirometer can strengthen your muscles between your ribs and help you have a strong cough after surgery. A more effective cough can help prevent problems with your lungs. 3) STAY HYDRATED: Drink clear liquids up until 2 hours before your surgery. We would like you to purchase a drink such as Gatorade or Ensure Clear (not the milkshake type). Drink this before bedtime and on the way into the hospital, drink between 8-12 ounces or until you feel hydrated. Keeping well hydrated leads to your veins being plump, you wake up faster, and you are less likely to be nauseated. Start drinking water as soon as you can after surgery and advance to clear liquids and food as tolerated. IV fluids contain salt, drinking fluids will minimize the amount of IV fluids you need and decrease the amount of salt you get. The most common reason for the patient to be readmitted is dehydration. Staying hydrated after you go home from the hospital is very important. Ensure or Ensure Clear are good options to keep you hydrated. 4) PAIN MANAGEMENT: If we minimize the amount of opioids and narcotics, and use regional blocks (which numb the area where your surgery is) along with oral pain medications; you will have less side effects of nausea and constipation. Narcotics can slow down your bowels and cause you to stay in the hospital longer. Our goal is to keep you comfortable; eating and drinking normally and back home safely. What can I eat or drink? - You may have solid food or milk products until 8 hours prior to your surgery. (Until 11:30 pm 10-22-17 ) - You may have water, apple juice or 7up/Sprite until 2 hours prior to your surgery. (Until 5:30 am ) Which medicines can I take? - Do not bring your own medications to the hospital. - Follow Orthopedic Clinic instructions regarding Ibuprofen. If no instructions given, NO Ibuprofenthe day prior to surgery. - Please take these medications the morning of surgery: Sudafed Flonase nasal spray if needed Acetaminophen (Tylenol) if needed How do I prepare myself? - Take two showers: one the night before surgery; and one the morning of surgery. Use Scrubcare or Hibiclens to wash from neck down. You may use your own shampoo and conditioner. Noother hair products. - Do NOT use lotion, powder, colognes, deodorant, or antiperspirant the day of your surgery. - Do NOT wear any makeup, fingernail romanian or jewelry. - Begin using Incentive Spirometer 1 week prior to surgery. Use 4 times per day, up to 5-10 breaths each time. Bring Incentive Spirometer to hospital. Questions or Concerns: If you have questions or concerns prior to your surgery, call [phone]. (Mon - Fri 8 am- 5:30 pm) Questions after surgery, contact your Surgeons office. AFTER YOUR SURGERY Breathing exercises Breathing exercises help you recover faster. Take deep breaths and let the air out slowly. This will: ??? Help you wake up after surgery. ??? Help prevent complications like pneumonia. Preventing complications will help you go home sooner. We may give you a breathing device (incentive spirometer) to encourage you to breathe deeply. Nausea and vomiting You may feel sick to your stomach after surgery; if so, let your nurse know. Pain control: After surgery, you may have pain. Our goal is to help you manage your pain. Pain medicine will help you feel comfortable enough to do activities that will help you heal. These activities may include breathing exercises, walking and physical therapy. To help your health care team treat your pain we will ask: 1) If you have pain 2) where it is located 3) describe your pain in your words Methods of pain control include medications given by mouth, vein or by nerve block for some surgeries. We may give you a pain control pump that will: 1) Deliver the medicine through a tube placed in yourvein 2) Control the amount of medicine you receive 3) Allow you to push a button to deliver a dose of pain medicine Sequential Compression Device (SCD) or Pneumo Boots: You may need to wear SCD???S on your legs or feet. These are wraps connected to a machine that pumpsin air and releases it. The repeated pumping helps prevent blood clots from forming. Using an Incentive Spirometer An incentive spirometer is a device that helps you do deep breathing exercises. These exercises expand your lungs, aid in circulation, and help prevent pneumonia. Deep breathing exercises also help youbreathe better and improve the function of your lungs by: ?? Keeping your lungs clear ?? Strengthening your breathing muscles ?? Helping prevent respiratory complications or problems The incentive spirometer gives you a way to take an active part in your care. A nurse or therapist will teach you breathing exercises. To do these exercises, you will breathe in through your mouth and not your nose. The incentive spirometer only works correctly if you breathe in through your mouth. Steps to clear lungs Step 1. Exhale normally. Then, inhale normally. ?? Relax and breathe out. Step 2. Place your lips tightly around the mouthpiece. ?? Make sure the device is upright and not tilted. Step 3. Inhale as much air as you can through the mouthpiece (don't breath through your nose). ?? Inhale slowly and deeply. ?? Hold your breath long enough to keep the balls or disk raised for at least 3 to 5 seconds, or as instructed by your healthcare provider. Step 4. Repeat the exercise regularly. documented in this encounter Plan of Treatment Not on filedocumented as of this encounter Visit Diagnoses Not on filedocumented in this encounter Care Teams Plastic Jig And Fixture Builder Relationship Specialty Start Date End Date Keri Elias PCP - General Family Practice 03/12/15 9 MD Ira Glez David Wayne, MD Orthopedics 07/09/14 [facility] [place] [address] Astrid Rios PA-C Physician Kosher Dietary Service Supervisor Physician Kosher Dietary Service Supervisor - 07/09/14 Surgical documented as of this encounter
--- OUTSIDE RECORDS SUMMARY | 2021-12-17 15:08 | XMS_ITS | Encounter Summary ---
:1980 Author Organization [place] Address [address] [facility] [place] [address] Care Team Providers Name Role Phone Bebeto Roth MD Unavailable Astrid Rios PA-C Unavailable Keri Elias MD Primary Care Provider Unavailable Encounter Details Date Type Department Care Team Description 09/29/2017 [facility]esthesia Event [facility] WahrPatria MD [address] [facility] [address] [place] [address] Assessment Center Cameron Manjarrez APRN [facility] [address] [place] [address] [address] [facility] 5th [place] [address] Anesthesia Record Procedure Summary Procedure Name [...] as of this encounter OR Notes Anesthesia Preprocedure Evaluation - Cameron Manjarrez APRN BUILDING SERVICES ENGINEER - 09/29/2017 10:14 AM CDT Anesthesia Evaluation . Pt has had prior [...] >3 FB Neck ROM: full Dental Cardiovascular Rhythm and rate: regular and normal Pulmonary breath sounds clear to auscultation Other findings: Results for AZUL MCCLELLAN ( ) as of 09/29/2017 13:47 09/29/2017 12:03 Sodium: 141 Potassium: 3.6 Chloride: [...] Antibody Screen: Neg Test Valid Only At: [facility] Specimen Expires: 10/02/2017 09/29/2017 12:11 Color Urine: Yellow Appearance Urine: Clear Glucose Urine: Negative Bilirubin Urine: Negative Ketones Urine: Negative Specific [place] Urine: 1.013 pH Urine: 6.0 Protein Albumin Urine: Negative Urobilinogen mg/dL: 0.0 Nitrite Urine: Negative Blood Urine: Large (A) Leukocyte Esterase Urine: Negative Source: Midstream Urine WBC Urine: 1 RBC Urine: 3 (H) Squamous Epithelial /HPF Urine: 3 (H) Transitional Epi: <1 (A) Mucous Urine: Present (A) PAC Discussion and Assessment ASA Classification: 2 Case is suitable for: [place] Anesthetic techniques and relevant risks discussed: GA Invasive monitoring and risk discussed: Yes Types: Possibility and Risk of blood transfusion discussed: Yes NPO instructions given: Additional anesthetic preparation and risks discussed: Needs early admission to pre-op area: Other: PAC Resident/ANALOG DEVICE DESIGNER Anesthesia Assessment: Azul Garg is a 37 yo female scheduled for Extension Of Fusion Thoracic 10- Thoracic 04/16, [facility] Thoracic 1-10 on 10/23/[address] Roth in treatment of scoliosis Previous anesthesia without complications 1) Cardiac: No [...] anesthesia and coordinating care for back surgery Reviewed and Signed by PAC Mid-Level Provider/Resident Mid-Level Provider/Resident: Ct Manjarrez APRN Date: 09/29/2017 Time: 1030 Attending Anesthesiologist Anesthesia Assessment: 37 year old for revision of prior scoliosis surgery; now for complex spine surgery T1-T10. Patient has no significant cardiac or pulmonary disease, normal 9 months ago. Patient/case discussed with ANANTH. No need to see patient. Patient is appropriate for the planned procedure without further work-up or medical management. Patient is ERAS for Complex Spine, we have written the orders. Reviewed and Signed by PAC Anesthesiologist Anesthesiologist: tevin Date: 09/29/2017 Time: Pass/Fail: Pass Disposition: PAC Pharmacist Assessment: Pharmacist: Date: Time: . documented in this encounter Plan of Treatment Not on filedocumented as of this encounter Visit Diagnoses Not on filedocumented in this encounter Care Teams Manager Industrial Relationship Specialty Start Date End Date Keri Elias PCP - General Family Practice 03/12/15 9 MD Ira Glez David Wayne, MD Orthopedics 07/09/[address] [place] [address] Astrid Rios PA-C Physician Wire Bender Hand Physician Wire Bender Hand - 07/09/14 Surgical documented as of this encounter
--- OUTSIDE RECORDS SUMMARY | 2021-12-17 15:08 | XMS_ITS | Encounter Summary ---
:1980 Author Organization [place] Address [facility] [place] [address] Care Team Providers Name Role Phone Bebeto Roth MD Unavailable Astrid Rios PA-C Unavailable Keri Elias MD Primary Care Provider Unavailable Reason for Visit Reason Onset Date Comments Schedule Surgery 07/20/2017 Dr. Roth Encounter Details Date Type Department Care Team Description 07/20/2017 Telephone [facility] Orthopaedic Bebeto Roth Surgery (MD [place]) [address]th [address] [place] [address] Social History Tobacco Use Types Packs/Day Years Used Date Smoking Tobacco: Never Smokeless Tobacco: Never Alcohol Use Standard Drinks/Week Comments No 0 (1 standard drink = 0.6 oz pure alcoho l) Sex Assigned at Date Recorded Not on file documented as of this encounter Miscellaneous Notes Telephone Encounter - Hodan Orellana - 07/20/2017 10:56 AM CDT Called patient to let her know her insurance approved her surgery and to schedule her procedure withDr. Roth. Patient has been scheduled for 10/24/17 at [place]. She will see PAC for her pre-op H&P on 09/29/17. documented in this encounter Plan of Treatment Not on filedocumented as of this encounter Visit Diagnoses Not on filedocumented in this encounter Care Teams Steam Clothes Press Operator Relationship Specialty Start Date End Date Keri Elias PCP - General Family Practice 03/12/15 9 MD Ira Glez David Wayne, MD Orthopedics 07/09/[address] [place] [id number] Astrid Rios PA-C Physician Blending Technician Physician Blending Technician - 07/09/14 Surgical documented as of this encounter
--- OUTSIDE RECORDS SUMMARY | 2021-12-17 15:08 | XMS_ITS | Encounter Summary ---
:1980 Author Organization [place] Address [address] [facility] [place] [address] Care Team Providers Name Role Phone Bebeto Roth MD Unavailable Astrid Rios PA-C Unavailable Keri Elias MD Primary Care Provider Unavailable Reason for Referral Diagnostic Imaging XR - Closed Specialty Diagnoses / Procedures Referred By Contact Refer red To Contact Diagnoses S/P spinal fusion Bebeto Roth MD Procedures XR Spine Complete 2 [address] [address] Referral ID Status Reason Start Date Expiration Date Visits Requ ested Visits Authorized [id number] Closed 06/28/2017 06/28/2018 1 1 Diagnostic Imaging XR - Closed Specialty Diagnoses / Procedures Referred By Contact Refer red To Contact Diagnoses S/P spinal fusion Bebeto Roth MD Procedures XR Spine Complete [address] [place], [place] [address] Referral ID Status Reason Start Date Expiration Date Visits Requ ested Visits Authorized [id number] Closed 06/28/2017 06/28/2018 1 1 Encounter Details Date Type Department Care Team Description 06/28/2017 Orders Only [facility] Orthopaedic Bebeto Roth S/P spi nal fusion Clinic MD Devan (Primary Dx) 9 [place] [id number] [place] [address] [phone] Social History Tobacco Use Types Packs/Day Years Used Date Smoking Tobacco: Never Smokeless Tobacco: Never Alcohol Use Standard Drinks/Week Comments No 0 (1 standard drink = 0.6 oz pure alcoho l) Sex Assigned at Date Recorded Not on file documented as of this encounter Plan of Treatment Not on filedocumented as of this encounter Results XR Spine Complete 2 [...] No substantial global coronal imbalance. Sagittal Vertical [place] (A vertical line drawn from the center [...] No substantial global coronal imbalance. Sagittal Vertical [place] (A vertical line drawn from the center [...] ORDER TAYLOR XR Spine Complete 2 Views (06/29/2017 1:19 [...] No substantial global coronal imbalance. Sagittal Vertical [place] (A vertical line drawn from the center [...] No substantial global coronal imbalance. Sagittal Vertical [place] (A vertical line drawn from the center [...] status documented in this encounter Care Teams Lathe Machinist Relationship Specialty Start Date End Date Keri Elias PCP - General Family Practice 03/12/15 9 MD Ira Glez David Wayne, MD Orthopedics 07/09/[address] [place] [id number] Astrid Rios PA-C Physician Life Enrichment Manager Physician Life Enrichment Manager - 07/09/14 Surgical documented as of this encounter
--- OUTSIDE RECORDS SUMMARY | 2021-12-17 15:08 | XMS_ITS | Encounter Summary ---
:1980 Author Organization [place] Address [address] [facility] [place] [address] Care Team Providers Name Role Phone Bebeto Roth MD Unavailable Astrid Rios PA-C Unavailable Keri Elias MD Primary Care Provider Unavailable Reason for Visit Reason Onset Date Comments Schedule Surgery 07/27/2017 Dr. Ira arizmendi Encounter Details Date Type Department Care Team Description 07/27/2017 Telephone [facility] Orthopaedic Bebeto Roth e Surgery (MD [place]) [address] 4[address] [place] [phone] Social History Tobacco Use Types Packs/Day Years Used Date Smoking Tobacco: Never Smokeless Tobacco: Never Alcohol Use Standard Drinks/Week Comments No 0 (1 standard drink = 0.6 oz pure alcoho l) Sex Assigned at Date Recorded Not on file documented as of this encounter Miscellaneous Notes Telephone Encounter - Hodan Orellana - 07/27/2017 11:57 AM CDT Phoned patient to see if she would be willing to move her surgery with Dr. Roth from 10/24/17 to 10/23/17 to accommodate another surgery. Patient stated she had no problem with the change and agreed to move her surgery to 10/23/17. documented in this encounter Plan of Treatment Not on filedocumented as of this encounter Visit Diagnoses Not on filedocumented in this encounter Care Teams Drafter Apprentice Relationship Specialty Start Date End Date Keri Elias PCP - General Family Practice 03/12/15 9 MD Ira Glez David Wayne, MD Orthopedics 07/09/[address] [place] [address] Astrid Rios PA-C Physician Special Education Classroom Aide Physician Special Education Classroom Aide - 07/09/14 Surgical documented as of this encounter
--- OUTSIDE RECORDS SUMMARY | 2021-12-17 15:09 | XMS_ITS | Encounter Summary ---
:1980 Author Organization [place] Address [address] [facility] [place] [address] Care Team Providers Name Role Phone Bebeto Roth MD Unavailable Astrid Rios PA-C Unavailable Keri Elias MD Primary Care Provider Unavailable Reason for Visit Reason Comments Care BALA. NO concerns Encounter Details Date Type Department Care Team Description 02/28/2017 Office Visit Narda Mcleod Keri Elias of [facility] MD [place] [facility] , [address], [address] ([address]) [place], [place] [address] Social History Tobacco Use Types Packs/Day Years Used Date Smoking Tobacco: Never Smokeless Tobacco: Never Alcohol Use Standard Drinks/Week Comments No 0 (1 standard drink = 0.6 oz pure alcoho l) Sex Assigned at Date Recorded Not on file documented as of this encounter Last Filed Vital Signs Vital Sign Reading Time Taken Comments Blood Pressure 111/77 02/28/2017 7:54 AM [facility] Pulse 96 02/28/2017 7:54 AM [facility] Temperature 36.4 ??C (97.5 ??F) 02/28/2017 7:54 AM [facility] Respiratory Rate 16 02/28/2017 7:54 AM [facility] Oxygen Saturation 100% 02/28/2017 7:54 AM [facility] Inhaled Oxygen Concentration - - Weight 79.9 kg (176 lb 3.2 oz) 02/28/2017 7:54 AM [facility] Height - - Body Mass Index 31.21 08/05/2016 8:14 AM CDT documented in this encounter Progress Notes Keri Elias MD - 02/28/2017 7:50 AM CST Return OB visit 35-39 weeks Subjective: Azul is a 36 year old female at 38w6d who returns for care. VINCENT Mar 08, 2017. - Concerns today: discharge, not itchy or foul smelling - Patient reports no vaginal bleeding, no leakage of fluid. Contractions occ. movement is present. Objective: BP 111/77 Pulse 96 Temp 97.5 ??F (36.4 ??C) (Oral) Resp 16 Wt 176 lb 3.2 oz (79.9 kg) LMP 06/01/2016 SpO2 100% BMI 31.21 kg/m2 Const: No distress Abd: Gravid. See flowsheet for FH, FHTs, presentation, EFW, edema. labs: Hemoglobin Date Value Ref Range Status 12/14/2016 9.3 (L) 11.7 - 15.7 g/dL Final Assessment & plan: IUP at 38w6d weeks - Return to clinic in 1 week. Options for treatment and follow-up care were reviewed with the patient and/or guardian. Azul Solis Smart and/or guardian engaged in the decision making process and verbalized understanding of the options discussed and agreed with the final plan. Keri Elias MD [facility] documented in this encounter Plan of Treatment Not on filedocumented as of this encounter Visit Diagnoses Diagnosis Supervision of high risk , ante - Primary documented in this encounter Care Teams Laboratory Manager Relationship Specialty Start Date End Date Keri Elias PCP - General Family Practice 03/12/15 9 MD Ira Glez David Wayne, MD Orthopedics 07/09/[address] [place] [address] [place] [id number] Astrid Rios PA-C Physician Sales Consultant Insurance Physician Sales Consultant Insurance - 07/09/14 Surgical documented as of this encounter
--- OUTSIDE RECORDS SUMMARY | 2021-12-17 15:09 | XMS_ITS | Encounter Summary ---
:1980 Author Organization [place] Address [address] [facility] [place] [address] Care Team Providers Name Role Phone Bebeto Roth MD Unavailable Astrid Rios PA-C Unavailable Keri Elias MD Primary Care Provider Unavailable Reason for Visit Reason Comments Care BALA Encounter Details Date Type Department Care Team Description 11/10/2016 Office Visit N[facility] Melisa Hogan Supervisio n of [facility] MD Lois risk , [address] [place] [address], [address] [place] [address] [id number] [place], [place] [phone] [id number] Social History Tobacco Use Types Packs/Day Years Used Date Smoking Tobacco: Never Smokeless Tobacco: Never Alcohol Use Standard Drinks/Week Comments No 0 (1 standard drink = 0.6 oz pure alcoho l) Sex Assigned at Date Recorded Not on file documented as of this encounter Last Filed Vital Signs Vital Sign Reading Time Taken Comments Blood Pressure 115/79 11/10/2016 3:48 PM CDT Pulse 103 11/10/2016 3:48 PM CDT Temperature 37.1 ??C (98.8 ??F) 11/10/2016 3:48 PM CDT Respiratory Rate 16 11/10/2016 3:48 PM CDT Oxygen Saturation 99% 11/10/2016 3:48 PM CDT Inhaled Oxygen Concentration - - Weight 76.6 kg (168 lb 12.8 oz) 11/10/2016 3:48 PM CDT Height - - Body Mass Index 29.9 08/05/2016 8:14 AM CDT documented in this encounter Progress Notes Melisa Hogan MD - 11/10/2016 3:40 PM CDT Return OB visit 23-28 weeks Subjective: Azul is a 36 year old female at 23w1d who returns for care. VINCENT Mar 08, 2017. - Concerns today: No concerns - Patient reports no vaginal bleeding, no contractions, no leakage of fluid. movement is present. - No nausea/vomiting. No heartburn. - No vaginal discharge. No dysuria. - No headache, vision changes, lower extremity swelling, upper abdominal pain, chest pain, shortnessof breath. - Mood has been . Objective: BP 115/79 Pulse 103 Temp 98.8 ??F (37.1 ??C) (Oral) Resp 16 Wt 168 lb 12.8 oz (76.6 kg) LMP 06/01/2016 SpO2 99% BMI 29.9 kg/m2 Const: No distress CV: RRR, no murmur Lungs: CTAB bilaterally Abd: Gravid. See flowsheet for FH, FHTs, edema. labs: Hemoglobin Date Value Ref Range Status 08/05/2016 17.8 (H) 11.7 - 15.7 g/dL Final Assessment & plan: IUP at 23w1d weeks by LMP consistent with first trimester ultrasound. - complicated by: Advanced maternal age. History of PPROM during previous - labs reviewed. Patient is Rh positive: Second trimester hemoglobin was not ordered. Will be obtained during next visit. - Reviewed survey results with patient:. Repeat ultrasound was ordered and unremarkable. - Discussed screening for gestational diabetes. 1 hour GCT will be obtained during next clinic visit. - weight gain has been -8 lb 3.2 oz (-3.719 kg) to date. - Provided counseling regarding labor symptoms, depression and social support systems, breast feeding, contraception options after delivery, baby supplies and car seat, proper seatbelt use during . The patient plans to deliver at [facility] with myself and/or OB partner: ABRAM Cadena. care at [facility]. - Patient will continue taking vitamins and avoiding cigarettes & alcohol. - Due to previous history of delivery patient will benefit from progesterone shot. Called patient to discuss history and benefit of progesterone but unable to reach patient. Will attempt call at a different time. She will follow up in one month - education provided: - Return to clinic in 4 weeks. - Specific concerns addressed today: There are no diagnoses linked to this encounter. Options for treatment and follow-up care were reviewed with the patient and/or guardian. Azul Solis Smart and/or guardian engaged in the decision making process and verbalized understanding of the options discussed and agreed with the final plan. Melisa Salvador MD PGY3 [facility] Resident Pager: [phone] Nicole Strickland MD - 11/10/2016 3:40 PM CDT Preceptor Attestation: Patient seen and discussed with the resident. Assessment and plan reviewed with resident and agreedupon. Supervising Physician: Nicole Strickland MD [facility] documented in this encounter Plan of Treatment Not on filedocumented as of this encounter Visit Diagnoses Diagnosis Supervision of high risk , ante documented in this encounter Care Teams Commissioned Sales Associate Relationship Specialty Start Date End Date Keri Elias PCP - General Family Practice 03/12/15 9 MD Ira Glez David Wayne, MD Orthopedics 07/09/[address] [place] [address] Astrid Rios PA-C Physician Corporate Security Manager Physician Corporate Security Manager - 07/09/14 Surgical documented as of this encounter
--- OUTSIDE RECORDS SUMMARY | 2021-12-17 15:09 | XMS_ITS | Encounter Summary ---
:1980 Author Organization [place] Address [facility] [place] [address] Care Team Providers Name Role Phone Bebeto Roth MD Unavailable Astrid Rios PA-C Unavailable Keri Elias MD Primary Care Provider Unavailable Encounter Details Date Type Department Care Team Description 07/27/2016 Radiant Appointment Health [facility] Bebeto Roth eled (Error) Center Una Hartman MD [id number] [place] [id number] Social History Tobacco Use Types Packs/Day Years [...] on filedocumented in this encounter Care Teams Laborer/Grade Check Relationship Specialty Start Date End Date Keri Elias PCP - General Family Practice 03/12/15 9 MD Ira Glez David Wayne, MD Orthopedics 07/09/14 [facility] [place], [place] [id number] Astrid Rios PA-C Physician Mosaic Tile Maker Physician Mosaic Tile Maker - 07/09/14 Surgical documented as of this encounter
--- OUTSIDE RECORDS SUMMARY | 2021-12-17 15:09 | XMS_ITS | Encounter Summary ---
:1980 Author Organization [place] Address [address] [facility] [place] [address] Care Team Providers Name Role Phone Bebeto Roth MD Unavailable Astrid Rios PA-C Unavailable Keri Elias MD Primary Care Provider Unavailable Reason for Visit Reason Onset Date Comments Call To Schedule Appointment 07/05/2016 NOB Appt Re quest Encounter Details Date Type Department Care Team Description 07/05/2016 Telephone [place] Keri Elias Call To Schedule Medicine Clinic MD [place] Appointment (NOB Appt [address], Request ) [address] [place], [place] [address] Social History Tobacco Use Types Packs/Day Years Used Date Smoking Tobacco: Never Smokeless Tobacco: Never Alcohol Use Standard Drinks/Week Comments No 0 (1 standard drink = 0.6 oz pure alcoho l) Sex Assigned at Date Recorded Not on file documented as of this encounter Miscellaneous Notes Telephone Encounter - Nuzhat Hong - 07/08/2016 4:09 PM CDT Called and spoke with patient to reschedule OB US and NOB appointments. OB Ultrasound is now scheduled on 08/03/16 and NOB is now scheduled on 08/05/[address] Elias (patient requested to see PCPas one of the OB partners). Telephone Encounter - Hiral Potter RN - 07/08/2016 8:58 AM CDT Per LMP, 8 weeks gestation would be 07/28/16. Date was previously mistyped. Please assist patient with rescheduling. Hiral Potter RN Telephone Encounter - Lisa Ventura - 07/07/2016 5:07 PM CDT Inform patient: You will see two providers throughout your care. One of them may be a male,will that be a problem for you? No Additional patient comments: Patient advised that she was informed to schedule US after 07/28/16. Dating US scheduled: 07/20/16 (per NOB scheduling note indicating US week of 07/18/16). If US should indeed be scheduled after 07/28/16 as indicated by provider (per patient), please contact AD who will contact patient to reschedule US and NOB appointments for later dates. NOB scheduled 07/22/16 at 10:40am with Dr Haji (this will be their primary OB provider). Telephone Encounter - Hiral Potter RN - 07/05/2016 3:13 PM CDT Confirmation of visit: 07/04/16 LMP: 06/01/16 Gestational Age: 5 weeks Estimated Date of Delivery: 03/09/17 Dating US has been ordered. Please call patient to schedule US week of 07/18/16 (8 weeks gestation). NOB may be scheduled after US is completed. May be scheduled same day, but US must be completed first. When calling to schedule NOB, please give scheduling preference to the following providers: Male: 1. Dr. Hogan 2. Dr. Marti Female: 1. Dr. Quach 2. Dr. Haji Other Notes: None Please document call and close encounter. Hiral Potter RN documented in this encounter Plan of Treatment Not on filedocumented as of this encounter Visit Diagnoses Not on filedocumented in this encounter Care Teams Biotechnologist Relationship Specialty Start Date End Date Keri Elias PCP - General Family Practice 03/12/15 9 MD Ira Glez David Wayne, MD Orthopedics 07/09/14 [id number] [place] [address] Astrid Rios PA-C Physician Solicitor Patent Physician Solicitor Patent - 07/09/14 Surgical documented as of this encounter
--- OUTSIDE RECORDS SUMMARY | 2021-12-17 15:09 | XMS_ITS | Encounter Summary ---
:1980 Author Organization [facility] Address [address] [place] [address]. [place] [address] Care Team Providers Name Role Phone Bebeto Roth MD Unavailable Astrid Rios PA-C Unavailable Keri Elias MD Primary Care Provider Unavailable Reason for Visit Reason Comments Laboring Auth/Cert Specialty Diagnoses / Procedures Referred By Contact Refer red To Contact Obstetrics Diagnoses Maternity*VINCENT 03/08/2017/Labor Encounter for triage in patient Labor and delivery, indication for care (normal spontaneous vaginal delivery) [address] [address] Phone: Referral ID Status Reason Start Date Expiration Date Visits Requ ested Visits Authorized [id number] 1 1 Encounter Details Date Type Department Care Team Description 03/05/2017 - Hospital Encounter [facility] Keri Elias MD (normal spontaneous vaginal delivery) (Primary Dx); 03/07/2017 [facility] Birthplace Lakisha Cantu DO [facility] [address] [place], [place] [id number] test positive [address] [place] [id number] Social History Tobacco Use Types Packs/Day Years Used Date Smoking Tobacco: Never Smokeless Tobacco: Never Alcohol Use Standard Drinks/Week Comments No 0 (1 standard drink = 0.6 oz pure alcoho l) Sex Assigned at Date Recorded Not on file documented as of this encounter Last Filed Vital Signs Vital Sign Reading Time Taken Comments Blood Pressure 105/76 03/07/2017 7:58 AM EDGE BANDER OPERATOR Pulse 109 03/05/2017 5:34 PM EDGE BANDER OPERATOR Temperature 36.6 ??C (97.8 ??F) 03/07/2017 7:58 AM EDGE BANDER OPERATOR Respiratory Rate 18 03/07/2017 7:58 AM EDGE BANDER OPERATOR Oxygen Saturation 97% 03/06/2017 11:30 AM EDGE BANDER OPERATOR Inhaled Oxygen Concentration - - Weight - - Height - - Body Mass Index - - documented in this encounter Discharge Summaries Lakisha Cantu DO - 03/07/2017 9:50 AM CST Images from the original note were not included. [facility] Medicine Post- Discharge Summary Azul Tellez Age: [age] year old Date of : 1980 Date of Admission: 03/05/2017 Date of Discharge:: 03/07/2017 Admitting Physician: Keri Elias MD Discharge Physician: Lakisha Cantu DO Home clinic: [facility] Admission Diagnoses: Maternity*VINCENT 03/08/2017/Labor Encounter for triage in patient Labor and delivery, indication for care (normal spontaneous vaginal delivery) Discharge Diagnosis: Normal spontaneous vaginal delivery Intrauterine at 39+5 weeks gestation Patient Active Problem List Diagnosis ??? Adolescent idiopathic scoliosis ??? Health Usp ??? Acne vulgaris ??? Anxiety ??? Congenital scoliosis ??? Scoliosis ??? Dermatofibroma of left thigh ??? Grief ??? Pain in thoracic spine ??? Other orthopedic aftercare(V54.89) ??? Supervision of high risk , antepartum ??? Frequent UTI ??? Anemia, iron deficiency ??? Encounter for triage in patient ??? Labor and delivery, indication for care ??? (normal spontaneous vaginal delivery) Procedures: Procedure(s): No additional procedures performed No procedures performed during this admission Medications Prior to Admission: Prescriptions Prior to Admission Medication Sig Dispense Refill Last Dose ??? amoxicillin (AMOXIL) 250 MG capsule Take 1 capsule (250 mg) by mouth daily 30 capsule 1 Past Week at Unknown time ??? fluticasone (FLONASE) 50 MCG/ACT spray [place] 1-2 sprays into both nostrils daily 16 g 3 Past Week at Unknown time ??? Vit-Fe Fumarate-FA ( MULTIVITAMIN PLUS IRON) 27-0.8 MG TABS per tablet Take 1 tablet by mouth daily 100 tablet 3 Past Week at Unknown time ??? ondansetron (ZOFRAN) 4 MG tablet Take 1 tablet (4 mg) by mouth every 8 hours as needed for nausea 30 tablet 0 Past Week at Unknown time ??? meclizine (ANTIVERT) 25 MG tablet Take 1 tablet (25 mg) by mouth 3 times daily as needed for dizziness 30 tablet 0 Past Week at Unknown time ??? hydrocortisone acetate 1 % CREA Externally apply topically 3 times daily Not more than 14 days at a streach 28.4 g 0 Past Week at Unknown time ??? blood glucose monitoring (ACCU-CHEK ROSEY PLUS) meter device kit Use to test blood sugars 3 times daily. 1 fasting and 2 one hour after meals 1 kit 0 More than a month at Unknown time ??? blood glucose monitoring (ACCU-CHEK ROSEY) test strip Use to test blood sugars 3 times daily or as directed. 100 strip 0 More than a month at Unknown time ??? blood glucose monitoring (ACCU-CHEK MULTICLIX) lancets Use to test blood sugar 3 times daily or as directed. 100 each 0 More than a month at Unknown time ??? BD SHARPS CONTAINER HOME MISC Use to dispose of needles 1 each 0 More than a month at Unknown time ??? LORazepam (ATIVAN) 1 MG tablet Take 0.5-1 tablets (0.5-1 mg) by mouth every 8 hours as needed for anxiety (Patient not taking: Reported on 02/21/2017) 10 tablet 0 More than a month at Unknown time Discharge Medications: Current Discharge Medication List CONTINUE these medications which have NOT CHANGED Details amoxicillin (AMOXIL) 250 MG capsule Take 1 capsule (250 mg) by mouth daily Qty: 30 capsule, Refills: 1 Associated Diagnoses: Frequent UTI fluticasone (FLONASE) 50 MCG/ACT spray [place] 1-2 sprays into both nostrils daily Qty: 16 g, Refills: 3 Associated Diagnoses: Environmental allergies Vit-Fe Fumarate-FA ( MULTIVITAMIN PLUS IRON) 27-0.8 MG TABS per tablet Take 1 tablet by mouth daily Qty: 100 tablet, Refills: 3 Associated Diagnoses: test positive ondansetron (ZOFRAN) 4 MG tablet Take 1 tablet (4 mg) by mouth every 8 hours as needed for nausea Qty: 30 tablet, Refills: 0 Associated Diagnoses: Nausea meclizine (ANTIVERT) 25 MG tablet Take 1 tablet (25 mg) by mouth 3 times daily as needed for dizziness Qty: 30 tablet, Refills: 0 Associated Diagnoses: Vertigo hydrocortisone acetate 1 % CREA Externally apply topically 3 times daily Not more than 14 days at a streach Qty: 28.4 g, Refills: 0 Associated Diagnoses: Dermatitis blood glucose monitoring (ACCU-CHEK ORSEY PLUS) meter device kit Use to test blood sugars 3 times daily. 1 fasting and 2 one hour after meals Qty: 1 kit, Refills: 0 Associated Diagnoses: Supervision of high risk , antepartum; Abnormal maternal glucose tolerance, antepartum blood glucose monitoring (ACCU-CHEK ROSEY) test strip Use to test blood sugars 3 times daily or as directed. Qty: 100 strip, Refills: 0 Associated Diagnoses: Supervision of high risk , antepartum; Abnormal maternal glucose tolerance, antepartum blood glucose monitoring (ACCU-CHEK MULTICLIX) lancets Use to test blood sugar 3 times daily or as directed. Qty: 100 each, Refills: 0 Associated Diagnoses: Supervision of high risk , antepartum; Abnormal maternal glucose tolerance, antepartum BD SHARPS CONTAINER HOME MISC Use to dispose of needles Qty: 1 each, Refills: 0 Associated Diagnoses: Supervision of high risk , antepartum; Abnormal maternal glucose tolerance, antepartum LORazepam (ATIVAN) 1 MG tablet Take 0.5-1 tablets (0.5-1 mg) by mouth every 8 hours as needed for anxiety Qty: 10 tablet, Refills: 0 Associated Diagnoses: Anxiety Consultations: No consultations were requested during this admission Brief History of Labor: On 03/06/2017 at 12:52am, this 36 year old year old under Epidural analgesia delivered a viable Male weighing 3650g with scores below: APGARs 1 Min 5Min 10Min Totals: 8 9 Hospital Course (HPI): The patient's hospital course was unremarkable. On discharge, her pain was well controlled. Vaginal bleeding is decreased. Voiding without difficulty. Ambulating well and tolerating a normal diet. No fever. Breast feeding going well. is stable. She was discharged on post- day #1. Contraception plan:undecided. Post depression education was provided. D/C Physical Exam: Vitals: 03/06/17 1130 03/06/17 1530 03/06/17 2346 03/07/17 0758 BP: 109/63 110/67 100/77 105/76 Pulse: Resp: Temp: 98.1 ??F (36.7 ??C) 98.4 ??F (36.9 ??C) 98.1 ??F (36.7 ??C) 97.8 ??F (36.6 ??C) TempSrc: Oral Oral Oral SpO2: 97% GENERAL: healthy, alert and no distress RESPIRATORY: no increased work of breathing CARDIOVASCULAR: no edema ABDOMEN: No scars, normal bowel sounds, soft, non-distended, non-tender, no masses palpated, no hepatosplenomegally Fundal height at level of umbilicus - 2 cm. Firm and non tender. EXTREMITIES: No edema, non-tender Post- hemoglobin: Hemoglobin Date Value Ref Range Status 03/07/2017 9.0 (L) 11.7 - 15.7 g/dL Final Discharge Instructions and Follow-Up: Discharge diet: Regular Discharge activity: Activity as tolerated Discharge follow-up: Follow up with primary care provider in 2 weeks Wound care: N/A Discharge Disposition: Discharged to home Lakisha Cantu DO BANDER OPERATOR documented in this encounter Discharge Instructions Discharge InstructionsAnuja Martins RN - 03/07/2017 10:52 AM CST Vaginal Delivery Instructions Activity ?? Ask family and friends for help when you need it. ?? Do not place anything in your vagina for 6 weeks. ?? You are not restricted on other activities, but take it easy for a few weeks to allow your body to recover from delivery. You are able to do any activities you feel up to that point. ?? No driving until you have stopped taking your pain medications (usually two weeks after delivery). Call your health care provider if you have any of these symptoms: ?? Increased pain, swelling, redness, or fluid around your stiches from an episiotomy or perineal tear. ?? A fever above 100.4 F (38 C) with or without chills when placing a thermometer under your tongue. ?? You soak a sanitary pad with blood within 1 hour, or you see blood clots larger than a golf ball. ?? Bleeding that lasts more than 6 weeks. ?? Vaginal discharge that smells bad. ?? Severe pain, cramping or tenderness in your lower belly area. ?? A need to urinate more frequently (use the toilet more often), more urgently (use the toilet veryquickly), or it tucker when you urinate. ?? Nausea and vomiting. ?? Redness, swelling or pain around a vein in your leg. ?? Problems or a red or painful area on your breast. ?? Chest pain and cough or are gasping for air. ?? Problems coping with sadness, anxiety, or depression. If you have any concerns about hurting yourself or the baby, call your provider immediately. ?? You have questions or concerns after you return home. Keep your hands clean: Always wash your hands before touching your perineal area and stitches. This helps reduce your risk of infection. If your hands aren't dirty, you may use an alcohol hand-rub to clean your hands. Keep your nails clean and short. BANDER OPERATOR documented in this encounter Medications at Time of Discharge Medication Sig Dispensed Refills Start Date End Date BD SHARPS CONTAINER Use to dispose of 1 each 0 7 03/30/2017 HOME MISCIndications: needles Supervision of high risk , antepartum, Abnormal maternal glucose tolerance, antepartum blood glucose Use to test blood 1 kit 0 12/14/201603/16 monitoring (ACCU-CHEK sugars 3 times daily. ROSEY PLUS) meter 1 fasting and 2 one device kitIndications: hour after meals Supervision of high risk , antepartum, Abnormal maternal glucose tolerance, antepartum blood glucose Use to test blood 100 strip 0 12/14/201603/16 monitoring (ACCU-CHEK sugars 3 times daily ROSEY) test or as directed. stripIndications: Supervision of high risk , antepartum, Abnormal maternal glucose tolerance, antepartum blood glucose Use to test blood 100 each 0 12/14/201603/16 monitoring (ACCU-CHEK sugar 3 times daily MULTICLIX) or as directed. lancetsIndications: Supervision of high risk , antepartum, Abnormal maternal glucose tolerance, antepartum fluticasone (FLONASE) [place] 1-2 sprays into 16 g 3 07/05/2017 50 MCG/ACT both nostrils daily sprayIndications: Environmental allergies hydrocortisone acetate Externally apply 28.4 g 0 016 07/05/2017 1 % CREAIndications: topically 3 times Dermatitis daily Not more than 14 days at a streach ibuprofen Take 1 tablet (600 60 tablet 1 03/07/20172017 (ADVIL/MOTRIN) 600 MG mg) by mouth every 6 tabletIndications: hours as needed for (normal spontaneous other (cramping) vaginal delivery) meclizine (ANTIVERT) 25 Take 1 tablet (25 mg) 30 tablet 0 0 10/11/2016 09/29/2017 MG tabletIndications: by mouth 3 times Vertigo daily as needed for dizziness ondansetron (ZOFRAN) 4 Take 1 tablet (4 mg) 30 tablet 0 04/12/2017 MG tabletIndications: by mouth every 8 Nausea hours as needed for nausea Vit-Fe Take 1 tablet by 100 tablet 3 03/07/2017 Fumarate-FA ( mouth daily MULTIVITAMIN PLUS IRON) 27-0.8 MG TABS per tabletIndications: test positive senna-docusate Take 1 tablet by 100 tablet 0 03/07/201709/13 (SENOKOT-S;PERICOLACE) mouth 2 times daily 8.6-50 MG per as needed for tabletIndications: constipation (normal spontaneous vaginal delivery) documented as of this encounter Progress Notes Keri Elias MD - 03/05/2017 9:47 PM CST [facility] Progress Note March 05, 2017 9:47 PM Date of service: 03/05/2017. SUBJECTIVE: Doing well. Patient reports contractions every 2-4 minutes and denies vaginal bleeding and reports loss of fluids constantly since she SROM. movement is Normal. OBJECTIVE: Patient Vitals for the past 8 hrs: BP Temp Temp src Pulse Resp SpO2 03/05/172126 111/60 98.3 ??F (36.8 ??C) Oral - - - 03/05/172125 111/60 - - - - - 03/05/172123 115/61 - - - - - 03/05/172121 105/61 - - - - - 03/05/172119 116/59 - - - - - 03/05/172117 113/65 - - - - 99 % 03/05/172115 118/67 - - - - - 03/05/172113 114/57 - - - - - 03/05/172112 127/64 - - - - 99 % 03/05/172002 - 97.9 ??F (36.6 ??C) Oral - - - 03/05/172001 137/61 97.9 ??F (36.6 ??C) Oral - - - 03/05/17 1734 111/55 98.2 ??F (36.8 ??C) Oral 109 18 - Gen: no apparent distress, resting comfortably Abd: Gravid. EFW: 7 lbs Sterile Vaginal Exam: Membranes: SROM Cervix: 7/80/-2 Consistency: soft Presentation:Cephalic FHT: Baseline 140 bpm. Variability is moderate (5-25 bpm), Accelerations are Present, decelerations are Absent TOCO: Contractions every 2-4 minutes and palpate strong. Tracing is Category 1 . ASSESSMENT and PLAN: Azul Tellez is a 36 year old at 39w4d in active labor. Patient Active Problem List Diagnosis ??? Adolescent idiopathic scoliosis ??? Health Usp ??? Acne vulgaris ??? Anxiety ??? Congenital scoliosis ??? Scoliosis ??? Dermatofibroma of left thigh ??? Grief ??? Pain in thoracic spine ??? Other orthopedic aftercare(V54.89) ??? Supervision of high risk , antepartum ??? Frequent UTI ??? Anemia, iron deficiency ??? Encounter for triage in patient ??? Labor and delivery, indication for care 1. Labor: spontaneous. Active labor progressing well. Continue expectant management. Plan to reassess in two hours. 2. Heart Rate Tracing: category one 3. GBS negative. Antibiotics are not indicated. 4. Pain Management: has an epidural for pain management. 5. Has anxiety about epidural numbness/heaviness, but has great leg movement control. DO [facility] BANDER OPERATOR Keri Elias MD - 03/05/2017 6:15 PM CST [facility] Progress Note March 05, 2017 6:16 PM Date of service: 03/05/2017. SUBJECTIVE: Doing well. Patient reports contractions every 6-3 minutes and denies vaginal bleeding or loss of fluids. movement is Normal. OBJECTIVE: Patient Vitals for the past 8 hrs: BP Temp Temp src Pulse Resp 03/05/17 1734 111/55 98.2 ??F (36.8 ??C) Oral 109 18 Gen: no apparent distress, resting comfortably Abd: Gravid. EFW: 7lbs Sterile Vaginal Exam: Membranes: intact Cervix: 5/75/-2 Consistency: soft Presentation:Cephalic FHT: Baseline 160 bpm. Variability is moderate (5-25 bpm), Accelerations are Present, Variable decelerations are Present. Late decelerations are absent. TOCO: Contractions every 6-3 minutes and palpate strong. Tracing is Category 2. ASSESSMENT and PLAN: Azul Tellez is a 36 year old at 39w4d in early labor. Patient Active Problem List Diagnosis ??? Adolescent idiopathic scoliosis ??? Health Usp ??? Acne vulgaris ??? Anxiety ??? Congenital scoliosis ??? Scoliosis ??? Dermatofibroma of left thigh ??? Grief ??? Pain in thoracic spine ??? Other orthopedic aftercare(V54.89) ??? Supervision of high risk , antepartum ??? Frequent UTI ??? Anemia, iron deficiency ??? Encounter for triage in patient ??? Labor and delivery, indication for care 1. Labor: spontaneous. Early labor Progressing well. Continue expectant management. Plan to reassess in two hours. 2. Heart Rate Tracing: category two based on tachycardia and variable decels. 3. GBS negative. Antibiotics are not indicated. 4. Pain Management: plans to attempt unmedicated delivery, considering NO gas. Gin Deutsch DO [facility] Attestation: This patient has been seen and evaluated by me, Keri Elias on 03/05/2017. I saw and discussed the case with the primary resident the care team. I agree with the findings and plan in this note. I have reviewed today's vital signs, medications, laboratory results. Keri Elias MD [facility] BANDER OPERATOR documented in this encounter Miscellaneous Notes L&D Delivery Note - Keri Elias MD - 03/07/2017 1:44 PM EDGE BANDER OPERATOR OB Vaginal Delivery Note Azul Tellez Age: [age] year old Date of : 1980 GA: 39w5d GP: Labor Complications: None EBL: mL QBL: 105 mL Delivery Type: Vaginal, Spontaneous Delivery ROM to Delivery Time: 5h 02m [place] Weight: 3.65 kg (8 lb 0.8 oz) 1 Minute 5 Minute 10 Minute Totals: 8 9 EZRA DEUTSCH Delivery Details: Azul Tellez, a 36 year old female delivered a viable with apgars of 8 and 9 . Patient was fully dilated and pushing after 7 hours 0 minutes in active labor. Delivery was via vaginal, spontaneous delivery to a sterile field under epidural anesthesia. Infant delivered in vertex middle occiput anterior position. Anterior and posterior shoulders delivered without difficulty. The cord was clamped, cut twice and 3 vessels were noted. Cord blood was obtained in routine fashion with the following disposition: lab . Cord complications: none Placenta delivered at 03/06 12:58 AM . Placental disposition was Hospital disposal . Fundal massage performed and fundus found to be firm. Episiotomy: none Perineum, vagina, cervix were inspected, and the following lacerations were noted: Perineal lacerations: 1st labial laceration: right The two lacerations were found to be hemostatic and did not require repair. Excellent hemostasis was noted. Needle count correct. Infant and patient in delivery room in good and stable condition. Labor Event Times Labor onset date: 03/05/17 Onset time: 5:30 PM Dilation complete date: 03/06/17 Complete time: 12:30 AM Start pushing date/time: 03/06/2017 0030 Labor Length 1st Stage (hrs): 7 (min): 0 2nd Stage (hrs): 0 (min): 22 3rd Stage (hrs): 0 (min): 6 Labor Events labor?: No steroids: None Labor Type: Spontaneous Predominate monitoring during 1st stage: continuous electronic monitoring Antibiotics received during labor?: No Rupture identifier: Rupture 1 Rupture date/time: 03/05/17 1950 Rupture type: Spontaneous rupture of membranes occuring during spontaneous labor or augmentation Fluid color: Clear Fluid odor: Normal 1:1 continuous labor support provided by?: environmental technician/Placenta Date and Time Delivery Date: 03/06/17 Delivery Time: 12:52 AM Placenta Date/Time: 03/06/2017 12:58 AM Oxytocin given at the time of delivery: after delivery of baby Vaginal Counts Initial count performed by 2 team members: Two Team Members Jada Gonzalez RN Miller Suture Miller Sponges Instruments Initial counts 2 5 Added to count Final counts 2 5 Placed during labor Accounted for at the end of labor No No No No No No Final count performed by 2 team members: Two Team Members Jada Gonzalez RN Final count correct?: Yes Apgars Living status: Living 1 Minute 5 Minute 10 Minute 15 Minute 20 Minute Skin color: 0 1 Heart rate: 2 2 Reflex irritability: 2 2 Muscle tone: 2 2 Respiratory effort: 2 2 Total: 8 9 Apgars assigned by: Pedro HAINES RN Cord Vessels: 3 Vessels Complications: None Cord Blood Disposition: Lab Gases Sent?: No Resuscitation Methods: None Care at Delivery: with spontaneous cry to mother's abdomen. Dried and stimulated withwarm blankets. Output in Delivery Room: Stool Measurements Weight: 8 lb 0.8 oz Length: 1' 8.5 Head circumference: 34.9 cm Skin to Skin and Feeding Plan Skin to skin initiation date/time: 03/06/17 005 Skin to skin with: Mother Skin to skin end date/time: initiated date/time: 03/06/2017 0140 How do you plan to feed your baby: Labor Events and Shoulder Dystocia Tracing Prior to Delivery: Category 1 Shoulder dystocia present?: Neg Delivery (Maternal) (Provider to Complete) ([id number]) Episiotomy: None Perineal lacerations: 1st Repaired?: No Labial laceration: right Repaired?: No Vaginal laceration?: No Cervical laceration?: No Mother's Information Mother: Azul Mcclellan #[id number] Start of Mother's Information IO Blood Loss 03/05/17 1730 - 03/07/17 0052 Mom's I/O Activity End of Mother's Information Mother: Azul Mcclellan #[id number] Delivery - Provider to Complete ([id number]) Delivering clinician: KERI ELIAS Attempted Delivery Types (Choose all that apply): Spontaneous Vaginal Delivery Delivery Type (Choose the 1 that will go to the History): Vaginal, Spontaneous Delivery Other personnel: Provider Role EZRA DEUTSCH Placenta Delayed Cord Clamping: Done Date/Time: 03/06/2017 12:58 AM Removal: Spontaneous Disposition: Hospital disposal Anesthesia Method: Epidural Cervical dilation at placement: 4-7 Presentation and Position Presentation: Vertex Position: Middle Occiput Anterior DO [facility] Attestation: This patient has been seen and evaluated by me, Keri Elias on 03/06/17. I saw and discussed the case with the primary resident the care team. I agree with the findings and plan in this note. I have reviewed today's vital signs, medications, laboratory results. I was present for the entire delivery. [facility] BANDER OPERATOR Plan of Care - Anuja Martnis RN - 03/07/2017 11:38 AM CST Problem: Patient Care Overview Goal: Plan of Care/Patient Progress Review Outcome: Adequate for Discharge Date Met: 03/07/17 Patient is stable, claimed her meds are helping. Encouraged to soak in the tub at home to relax soremuscles. Independent with self and baby. Discharge instructions reviewed with her and questions wereanswered. Discharge to home today with baby. BANDER OPERATOR Plan of Care - Collin Oh RN - 03/07/2017 8:07 AM CST Problem: (Vaginal Delivery) (Adult,Obstetrics,Pediatric) Goal: Signs and Symptoms of Listed Potential Problems Will be Absent, Minimized or Managed () Signs and symptoms of listed potential problems will be absent, minimized or managed by discharge/transition of care (reference (Vaginal Delivery) (Adult,Obstetrics,Pediatric) CPG). Outcome: Improving PP assessment WNL. Vital signs stable. Pt up ad terrance, steady gait. Intake and output remains appropriate. Encouraged fluid intake. Pain managed with Ibuprofen and tylenol. No further concerns, will continue with pt plan of care. Pt. Looking forward to discharge to home today. BANDER OPERATOR Plan of Care - Amelia Martinez RN - 03/07/2017 7:50 AM CST Referral made to [facility] for early dc. BANDER OPERATOR Plan of Care - Anna Morgan RN - 03/06/2017 9:11 PM CST Problem: (Vaginal Delivery) (Adult,Obstetrics,Pediatric) Goal: Signs and Symptoms of Listed Potential Problems Will be Absent, Minimized or Managed () Signs and symptoms of listed potential problems will be absent, minimized or managed by discharge/transition of care (reference (Vaginal Delivery) (Adult,Obstetrics,Pediatric) CPG). stable. Voiding adequate amounts. Tolerating diet. Ambulating independently. independently, educated on spoon feeding. Pain is tolerable with po ibuprofen and tylenol. Support person in room. Continue plan of care. BANDER OPERATOR Plan of Care - Deborah Sparks RN - 03/06/2017 2:20 PM CST Problem: (Vaginal Delivery) (Adult,Obstetrics,Pediatric) Goal: Signs and Symptoms of Listed Potential Problems Will be Absent, Minimized or Managed () Signs and symptoms of listed potential problems will be absent, minimized or managed by discharge/transition of care (reference (Vaginal Delivery) (Adult,Obstetrics,Pediatric) CPG). Outcome: Improving Data: Vital signs within normal limits. checks within normal limits - see flow record. Patient eating and drinking normally. Patient able to empty bladder independently and is up ambulating.No apparent signs of infection. Patient performing self cares and is able to care for infant. Action: Patient medicated during the shift for pain. See MAR. Patient reassessed within 1 hour aftereach medication and pain was improved - patient stated she was comfortable. Patient education done about breastfeeing, latch, and cares. See flow record. Response: Positive attachment behaviors observed with . Support person present. Plan: continue with plan of care. BANDER OPERATOR Note - Jose Cummings RN - 03/06/2017 8:40 AM CST This note was copied from a baby's chart. Asked to check in with dyad since first time , 4th baby. Mom report goingwell, was painful at first but no longer. Overnight feedings, RN was unable to see latch but this amRN helped and reports latched well. Mom had finished feeding before LC visit, going back to sleep. Briefly reviewed anatomy of breast and mouth, importance of good latch for both comfort and milk transfer/supply. Left ascom # for Azul to call with next feeding. Called back in @ time of feeding, infant latched with help of resource RN & mom reports increased comfort. Had slid down to tip of nipple by time of LC visit, point out ways to tell if good latch and show mom lipstick crease to nipple when he came off. With permission, demo ways to get deeper latch & encourage maintain deep latch to minimize discomfort and get full supply to come in. Discussed supply and demand, anatomy again, ways to boost supply including hand expressing after feedings andgiving to via spoon. Encourage no formula unless medically indicated and to wait until 3-4 weeks & well established to give milk via bottles. Reviewed resources, feeding log and answered questions. Mom reports she's feeling good about latching, will continue to call for help prn. BANDER OPERATOR Plan of Care - Apoorva Gold RN - 03/06/2017 6:39 AM CST Problem: Patient Care Overview Goal: Plan of Care/Patient Progress Review Outcome: Therapy, progress toward functional goals as expected Data: Vital signs within normal limits. checks within normal limits - see flow record. Patient eating and drinking normally. Patient able to empty bladder independently and is up ambulating w/o difficulty. No apparent signs of infection. Patient -did not call out for help with , so unable to see a latch. Action: Patient denied need for pain medication. Patient education done about folder, new family booklet, safe sleep, feeding cues, Lynd and pain management. See flow record. Response: Positive attachment behaviors observed with infant. Support persons Yohan present. Plan: continue plan of care. BANDER OPERATOR Provider Notification - Apoorva Gold RN - 03/06/2017 6:36 AM CST 03/06/17 0636 Provider Notification Provider Name/Title Jada Method of Notification Electronic Page Request Evaluate-Remote Notification Reason Medication Request (Tums) Patient is requesting Tums for heartburn. Please order as soon as you can, thanks! BANDER OPERATOR Plan of Care - Apoorva Gold RN - 03/06/2017 6:09 AM CST Patient arrived to [facility] unit via wheelchair at 0330,with belongings, accompanied by spouse/ significant other, with in arms. Received report from Rebecca Regalado at 0300 over the phone and checked bands. Unit and room orientation completd. Call light given and within arms reach; no concerns present atthis time. Continue with plan of care. BANDER OPERATOR Plan of Care - Mary Lindsey RN - 03/06/2017 3:49 AM CST Data: Azul Tellez transferred to [facility] via wheelchair at 0330. Baby transferred via parent'sarms. Action: Receiving unit notified of transfer: Yes. Patient and family notified of room change. Reportgiven to KENNY Guerin at 0300. Belongings sent to receiving unit. Accompanied by Registered Nurse. Oriented patient to surroundings. Call light within reach. ID bands double-checked with receiving RN. Response: Patient tolerated transfer and is stable. BANDER OPERATOR Provider Notification - Mary Lindsey RN - 03/06/2017 2:23 AM CST 03/05/17 9580 Provider Notification Provider Name/Title MDA Method of Notification At Bedside Request Evaluate in Person Notification Reason Other (Comment) (replacing epidural) Pt. Uncomfortable, feels epidural isn't working. MDA in to assess. Epidural fell out. Second one placed. Continue to monitor. BANDER OPERATOR Plan of Care - Mary Lindsey RN - 03/06/2017 2:20 AM CST Problem: Labor (Cervical Ripen, Induct, Augment) (Adult,Obstetrics,Pediatric) Goal: Signs and Symptoms of Listed Potential Problems Will be Absent, Minimized or Managed (Labor) Signs and symptoms of listed potential problems will be absent, minimized or managed by discharge/transition of care (reference Labor (Cervical Ripen, Induct, Augment) (Adult,Obstetrics,Pediatric) CPG). Outcome: Completed Date Met: 03/06/17 Pt. Complete @ 0030, started pushing. viable male @ 0052. to mothers abdomen for skin toskin, dried and stimulated with lusty cry. Intact placenta without complication. No repairs. Pitocinper protocol. Continue pp cares. BANDER OPERATOR Plan of Care - Yasmine Phillips RN - 03/05/2017 10:49 PM CST Problem: Labor (Cervical Ripen, Induct, Augment) (Adult,Obstetrics,Pediatric) Goal: Signs and Symptoms of Listed Potential Problems Will be Absent, Minimized or Managed (Labor) Signs and symptoms of listed potential problems will be absent, minimized or managed by discharge/transition of care (reference Labor (Cervical Ripen, Induct, Augment) (Adult,Obstetrics,Pediatric) CPG). Outcome: No Change Pt VSS. BP 109/60 Pulse 109 Temp 97.8 ??F (36.6 ??C) (Oral) Resp 18 LMP 06/01/2016 SpO2 98%. Pt continues to labor spontaneously. Pt desired Epidural and she received one with consent obtained. Pt agreed to procedure. Pt is quite anxious. Pt continues to be reassured that things are going asexpected. Pt SROM. Large amounts of clear fluid are present. FHR stable. Variability is moderate. Acels are seen. Occasional LD have been observed. Provider was made aware and has reviewed the strip. Will continue to support pt as able. Pt has support person at bedside. Lavender was brought in for pt to help with relaxation. BANDER OPERATOR Provider Notification - Yasmine Phillips RN - 03/05/2017 10:44 PM CST 03/05/17 2226 Provider Notification Provider Name/Title MDA Method of Notification Phone Request Evaluate - Remote Notification Reason Status Update Discussed pt status post-epidural placement. Discussed how tape was coming off and placed tape on tokeep site stable. MDA ok with intervention. No further orders. BANDER OPERATOR Provider Notification - Yasmine Phillips RN - 03/05/2017 10:43 PM CST 03/05/17 2239 Provider Notification Provider Name/Title MDA Method of Notification Phone Request Evaluate - Remote Notification Reason Patient Request Discussed pt s/s with provider. No concerns at this time. Will continue to support and update provider as needed. BANDER OPERATOR Provider Notification - Yasmine Phillips RN - 03/05/2017 10:02 PM CST 03/05/17 2200 Provider Notification Provider Name/Title FP Resident Method of Notification In Department Request Evaluate in Person Notification Reason Status Update Strip reviewed intra-department. No further orders or concerns. BANDER OPERATOR Provider Notification - Yasmine Phillips RN - 03/05/2017 9:54 PM CST 03/05/17 2115 Provider Notification Provider Name/Title FP Resident Method of Notification At Bedside Request Evaluate in Person Notification Reason Status Update Strip reviewed at bedside with provider as a LD was seen. No further orders. Variability still moderate. BANDER OPERATOR Plan of Care - Lisa Peralta RN - 03/05/2017 7:07 PM CST Problem: Labor (Cervical Ripen, Induct, Augment) (Adult,Obstetrics,Pediatric) Goal: Signs and Symptoms of Listed Potential Problems Will be Absent, Minimized or Managed (Labor) Signs and symptoms of listed potential problems will be absent, minimized or managed by discharge/transition of care (reference Labor (Cervical Ripen, Induct, Augment) (Adult,Obstetrics,Pediatric) CPG). Outcome: No Change [facility]: [facility] Reason for maternal/ assessment per patient is Laboring . Patient is a . record reviewed. Obstetric History T2 L3 SAB2 TAB0 Ectopic0 Multiple0 Live Births3 # Outcome Date GA Lbr Michael/2nd Weight Sex Delivery Anes PTL Lv 6 Current 5 Term 10/05/11 40w6d 06:37 / 00:05 3.459 kg (7 lb 10 oz) F Vag-Spont Spinal N BRADY Name: GEOVANY TELLEZ,Yulisa MONREAL Apgar1: 8 Apgar5: 9 4 SAB 3 SAB 2 1 Term . Medical history: Past Medical History: Diagnosis Date ??? Abnormal Pap smear in past- normal since then ??? Anemia with . Gestational Age 39w4d. VSS. movement present. Patient denies UTI symptoms, GI problems, vaginal bleeding, edema, headache, visual disturbances, epigastric or URQ pain, , rupture of membranes. Support persons Yohan present. Action: Verbal consent for EFM. Triage assessment completed. EFM applied for upon admission- non reactive NST so left monitors on, hard to determine baseline. Uterine assessment reveals contractions every 2-5 minutes palpating moderate. assessment: Presumed adequate oxygenation documented (see flow record). Response: Dr. Mitchell Beaulieu informed of patient arrival. SVE /-2 Plan per provider is admission to labor and delivery due to laboring with cervical change from this morning's SVE. Patient verbalized agreement with plan. Patient transferred to room 481 ambulatory, oriented to room and call light. BANDER OPERATOR documented in this encounter Plan of Treatment Not on filedocumented as of this encounter Procedures Procedure Name Priority Date/Time Associated Diagnosis Comme nts HEMOGLOBIN Routine 03/07/2017 7:07 AM Results f or this EDGE BANDER OPERATOR procedure are i n the results section . PLATELET COUNT STAT 03/05/2017 6:28 PM Results for this EDGE BANDER OPERATOR procedure are i n the results section . HEMOGLOBIN STAT 03/05/2017 6:28 PM Results f or this EDGE BANDER OPERATOR procedure are i n the results section . ABO AND RH STAT 03/05/2017 6:28 PM Results f or this EDGE BANDER OPERATOR procedure are i n the results section . documented in this encounter Results (ABNORMAL) Hemoglobin (03/07/2017 7:07 AM EDGE BANDER OPERATOR) P athologist Signature Hemoglobin 9.0 (L) 11.7 - 15.7 03/07/2017 [facility] g/dL 7:24 AM EDGE BANDER OPERATOR [facility] Specimen Anatomical Collection Method Collection Time Receive d Time (Source) Location / / Volume Laterality Blood specimen 03/07/2017 7:07 AM 018 7:11 (specimen) EDGE BANDER OPERATOR AM EDGE BANDER OPERATOR Keri Elias MD LAB - BLOOD ORDERABLES Performing Organization Address City/State/ZIP Code Phon e Number [address] [address] [facility] Platelet count (03/05/2017 6:28 PM EDGE BANDER OPERATOR) P athologist Signature Platelet Count 281 150 - 450 03/05/2017 [facility] 10e9/L 6:35 PM EDGE BANDER OPERATOR [facility] Specimen Anatomical Collection Method Collection Time Receive d Time (Source) Location / / Volume Laterality Blood specimen 03/05/2017 6:28 PM 018 6:30 (specimen) EDGE BANDER OPERATOR PM EDGE BANDER OPERATOR Keri Elias MD LAB - BLOOD ORDERABLES Performing Organization Address City/State/ZIP Code Phon e Number [address] [address] [facility] (ABNORMAL) Hemoglobin (03/05/2017 6:28 PM EDGE BANDER OPERATOR) P athologist Signature Hemoglobin 10.2 (L) 11.7 - 03/05/2017 [facility] 15.7 g/dL 6:35 PM EDGE BANDER OPERATOR [facility] Specimen Anatomical Collection Method Collection Time Receive d Time (Source) Location / / Volume Laterality Blood specimen 03/05/2017 6:28 PM 018 6:30 (specimen) EDGE BANDER OPERATOR PM EDGE BANDER OPERATOR Keri Elias MD LAB - BLOOD ORDERABLES Performing Organization Address City/State/ZIP Code Phon e Number [address] [address] [facility] ABO and Rh (03/05/2017 6:28 PM EDGE BANDER OPERATOR) Patholo gist Method Time Signature ABO O 03/05/2017 [facility] 6:58 PM EDGE BANDER OPERATOR [facility] RH(D) Pos [facility] Specimen 03/08/2017 03/05/2017 [facility] Expires 6:39 PM EDGE BANDER OPERATOR [facility] Specimen Anatomical Collection Method Collection Time Receive d Time (Source) Location / / Volume Laterality Blood specimen 03/05/2017 6:28 PM 018 6:30 (specimen) EDGE BANDER OPERATOR PM EDGE BANDER OPERATOR Keri Elias MD LAB - BLOOD BANK TEST ORDER Performing Organization Address City/State/ZIP Code Phon e Number [facility] [address] [place] [address] [facility] documented in this encounter Visit Diagnoses Diagnosis (normal spontaneous vaginal deliver y) - Primary Normal delivery (normal spontaneous vaginal deliver y) Normal delivery test positive examination or test, positive result Encounter for triage in patient Labor and delivery, indication for care Unspecified indication for care or inter vention related to labor and delivery, unspecified as to episode of care documented in this encounter Administered Medications Inactive Administered Medications - up to 3 most recent administrations Medication Order MAR Action Action Date Dose Rate Site acetaminophen (TYLENOL) tablet 650 Given 03/07/2017 7:21 AM EDGE BANDER OPERATOR 650 mg mg 650 mg, Oral, EVERY 4 HOURS PRN, mild pain, fever, greater than or equal to 38?? C /100.4?? F (oral) or 38.5?? C/ 101.4?? F (core)., Starting on Mon03/06/17 at 0129, Maximum acetaminophen dose from all sources = 75 mg/kg/day not to exceed 4 grams/day. Given 03/06/2017 11:45 PM EDGE BANDER OPERATOR 650 mg Given 03/06/2017 7:28 PM EDGE BANDER OPERATOR 650 mg calcium carbonate (TUMS) chewable tablet 500 Given 10:10 PM EDGE BANDER OPERATOR 500 mg mg 500 mg, Oral, DAILY PRN, heartburn, Starting on Mon03/05/17 at 2147 calcium carbonate (TUMS) chewable tablet 500 mg 500 mg, Oral, DAILY PRN, heartburn, Starting on Mon at 0638 diphenhydrAMINE (BENADRYL) injection 25 mg Given 03/06/2017 4:10 AM EDGE BANDER OPERATOR 25 mg 25 mg, Intravenous, EVERY 6 HOURS PRN, itching, sleep, anxiety, Administer over 1-2 Minutes, Starting on Mon03/06/17 at 0336, For ordered doses up to 50 mg, give IV Push undiluted. Give each 25mg over a minimum of 1 minute. Extend in non-emergency fentaNYL (PF) (SUBLIMAZE) injection 50-100 Given 03/05/2017 7:33 PM EDGE BANDER OPERATOR 50 mcg mcg 50-100 mcg, Intravenous, EVERY 1 HOUR PRN, other, desired pain relief based on labor coping/body mass index/labor assessment., Starting on 03/05/17 at 1848, Start at the lowest dose or may give higher initial dose if labor coping/assessment warrants or as directed by provider. May adjust subsequent doses as needed for pain control based on patient response to first dose or labor coping. Hold dose for analgesic side effects. Notify provider to assess for uncontrolled pain or analgesic side effects. For ordered doses up to 100 mcg give IV Push undiluted over a minimum of 3-5 minutes. fentaNYL (SUBLIMAZE) 2 mcg/mL, New Bag by Other 03/05/2017 9:19 PM CS T bupivacaine (MARCAINE) 0.125% Clinician in NS premix for PCEA PCEA dose (mL): 5, PCEA Lockout Interval (min): 15 minutes, Hour Limit (mL): 25, Continuous Rate (Basal Rate) (mL/hr): 10, Absolutely no anticoagulants, thrombolytics or antiplatelet medications or other opioid analgesics or other sedatives without prior notification of anesthesiology. For CADD cassettes, pharmacy to send epidural tubing set Ref # [id number] (5.1mL)., Routine hydrOXYzine (ATARAX) tablet 10 mg 10 mg, Oral, 3 TIMES DAILY PRN, anxiety, Starting on M on 03/06/17 at 0359 ibuprofen (ADVIL/MOTRIN) tablet 800 mg Given 03/06/2017 1:27 AM EDGE BANDER OPERATOR 800 mg 800 mg, Oral, ONCE PRN, moderate pain, mild-moderate pain, Starting on 03/05/17 at 1810, For 1 dose, Available for administration after delivery. May give with acetaminophen. ibuprofen (ADVIL/MOTRIN) tablet 800 mg Given 03/07/2017 7:21 AM EDGE BANDER OPERATOR 800 mg 800 mg, Oral, EVERY 6 HOURS PRN, other, cramping, Starting on 03/06/17 at 0129, Max dose: 3200 mg/day Given 03/06/2017 8:42 PM EDGE BANDER OPERATOR 800 mg Given 03/06/2017 2:27 PM EDGE BANDER OPERATOR 800 mg lactated ringers BOLUS 1,000 mL New Bag 03/05/2017 8:37 PM EDGE BANDER OPERATOR 1,000 mLs Intravenous, 1,000 mL, ONCE PRN, IF patient to have epidural or intrathecal narcotics and NOT pre-eclamptic, Starting on Mon03/05/17 at 1810, For 1 dose, IV bolus 15-30 min prior to epidural, then IV fluids per labor orders lactated ringers BOLUS 500 mL New Bag 03/05/2017 6:17 PM EDGE BANDER OPERATOR 500 mLs Intravenous, 500 mL, ONCE PRN, per policy for intrauterine resuscitation or uterine tachysystole, Starting on Mon03/05/17 at 1810, For 1 dose lactated ringers infusion New Bag 03/05/2017 11:53 PM EDGE BANDER OPERATOR 125 mL/hr at 125 mL/hr, Intravenous, CONTINUOUS, Starting on Mon03/05/17 at 1830, Until Mon03/06/17 at 0129 Rate/Dose Verify 03/05/2017 8:27 PM EDGE BANDER OPERATOR 125 mL/hr 03/05/2017 7:20 PM EDGE BANDER OPERATOR 125 mL/hr naphazoline-pheniramine (OPCON-A/VISINE A/NAPHCON A) ophthalmic solution 1 drop 1 drop, Ophthalmic, 4 TIMES DAILY PRN, d ry eyes, Starting on Mon03/06/17 at 0358 nitrous oxide/oxygen 50/50 blend Given 03/05/2017 6:45 PM EDGE BANDER OPERATOR Inhalation, CONTINUOUS PRN, episodic analgesia, Starting on Mon03/05/17 at 1848, Only to be self-administered by patient. Patient Agreement for the Administration of Nitrous Oxide during Labor/Immediate period must be signed by patient prior to starting nitrous oxide/oxygen blend. ~Nitrous oxide is contraindicated if the patient has received opioid, benzodiazepine or other sedative medication in the previous 2 hours. ~Precaution: If patient has received other medications with sedative side effects such as diphenhydramine, hydroxyzine, prochlorperazine or zolpidem assess level of sedation carefully before starting nitrous oxide. oxytocin (PITOCIN) 30 units in New Bag 03/06/2017 12:54 AM EDGE BANDER OPERATOR 340 mL/hr 340 mL/hr 500 mL 0.9% NaCl infusion 100-340 mL/hr, Intravenous, CONTINUOUS PRN, after delivery to treat or prevent uterine atony, Starting on Mon03/05/17 at 1810, Administer 340 mL/hr over 30 minutes for a total of 170 mL then decrease to 100 mL/hr until infusion complete (about 3.5 hours) or per provider direction. Start new bag at delivery. Discontinue or saline lock peripheral IV per nurse discretion. oxytocin (PITOCIN) 30 Rate/Dose Change 03/06/2017 1:25 AM 100 mL/hr 100 mL/hr units in 500 mL 0.9% NaCl EDGE BANDER OPERATOR infusion 100 mL/hr, Intravenous, CONTINUOUS, Starting on Mon03/06/17 at 0130, At 100 mL/hr to follow after initial oxytocin loading dose (340 mL/hr). Continue until infusion complete (about 3.5 hours) or per provider discretion. Begin after delivery of placenta; IV to continue until patient stable. Discontinue or saline lock per nurse discretion. senna-docusate (SENOKOT-S;PERICOLACE) Given 03/06/2017 7:[address] 1 tablet 8.6-50 MG per tablet 1 tablet 1 tablet, Oral, 2 TIMES DAILY PRN, constipation, Starting on Mon03/06/17 at 0129, If no bowel movement in 24 hours, increase to 2 tablets PO. Hold for loose stools. Given 03/06/2017 7:41 AM EDGE BANDER OPERATOR 1 tablet senna-docusate (SENOKOT-S;PERICOLACE) 8. 6-50 MG per tablet 2 tablet 2 tablet, Oral, 2 TIMES DAILY PRN, const ipation, Starting on Mon03/06/17 at 0129, Hold for loose stools. documented in this encounter Active and Recently Administered Medications Times are shown in EDGE BANDER OPERATOR. Scheduled Medication Order 03/05/2017 03/06/2017 03/07/2017 fentaNYL (SUBLIMAZE) 2 mcg/mL, bupivacai ne (MARCAINE) 0.125% in NS premix for PCEA (CANCELED) 2118 (New Bag by Other Clinician - Provider: Yasmine ulloa, KENNY) 104 (Stopped - Provider: Mary Lindsey RN) EPIDURAL, QUALITY CONTROL SYSTEMS MANAGER, First dose on Mon03/05/17 at 2045, Absolutely no anticoagulants, thrombolytics or antiplatelet medications or other opioid analgesics or other sedatives without prior notification of anes thesiology. For CADD cassettes, pharmacy to send epidural tubing set Ref # [id number] (5.1mL). Continuous Medication Order 03/05/2017 03/06/2017 03/07/2017 lactated ringers infusion (CANCELED) 1919 (New Bag - P rovider: Lisa Peralta, KENNY)2026 (Rate/Dose Verify - Provider: Yasmine Phillips, KENNY)2353 (New Bag - Provider: Mary Lindsey, RN) 0054 (Stopped - Provider: Mary Lindsey RN) at 125 mL/hr, Intravenous, CONTINUOUS, S tarting 03/05/17 at 1830, Until 03/06/17 at 0129 oxytocin (PITOCIN) 30 units in 500 mL 0.9% NaCl infusion 0125 (Rate/Dose Change - Provider: Mary Lindsey, KENNY)0445 (Stopped - Provider: Apoorva Gold RN) 100 mL/hr, Intravenous, at 100 mL/hr, CO NTINUOUS, Starting 03/06/17 at 0130, At 100 mL/hr to follow after initial oxytocin loading dose (340 mL/hr). Continue until infusion complete (about 3.5 hours) or per provider discretion. Begin after delivery of placenta; IV to continue until patient stable. Discontinue or saline lock per nurse discretion. PRN Medication Order 03/05/2017 03/06/2017 03/07/2017 acetaminophen (TYLENOL) tablet 650 mg 11 29 (Given - Provider: Deborah Sparks RN)1529 (Given - Provider: Anna Morgan RN)1928 (Given - Provider: Anna Morgan RN)2345 (Given - Provider: Collin Oh, KENNY) 0721 (Given - Provider: Collin Oh, KENNY) 650 mg, Oral, EVERY 4 HOURS PRN, mild pa in, fever, greater than or equal to 38?? C /100.4?? F (oral) or 38.5?? C/ 101.4?? F (core)., Starting Mon03/06/17 at 0129, Maximum acetaminophen dose from all sources = 75 mg/kg/day not to exceed 4 grams/day. bisacodyl (DULCOLAX) Suppository 10 mg 10 mg, Rectal, DAILY PRN, constipation, Starting Mon03/08/17 at 0000 calcium carbonate (TUMS) chewable tablet 500 mg (CANCE LED) 2210 (Given - Provider: Yasmine Phillips, KENNY) 500 mg, Oral, DAILY PRN, heartburn, Starting 03/05/17 at 2147 calcium carbonate (TUMS) chewable tablet 500 mg 500 mg, Oral, DAILY PRN, heartburn, Starting 03/06/17 at 0638 diphenhydrAMINE (BENADRYL) injection 25 mg 0410 (Given - Provider: Apoorva Gold RN) 25 mg, Intravenous, EVERY 6 HOURS PRN, i tching, sleep, anxiety, Administer over 1-2 Minutes, Starting 03/06/17 at 0336, For ordered doses up to 50 mg, give IV Push undiluted. Give each 25mg over a minimum of 1 minute. Extend in non-emergency fentaNYL (PF) (SUBLIMAZE) injection 50-100 mcg (CANCEL ED) 1933 (Given - Provider: Yasmine Phillips RN) 50-100 mcg, Intravenous, EVERY 1 HOUR [place] N, Starting 03/05/17 at 1848, other, desired pain relief based on labor coping/body mass index/labor assessment., Start at the lowest dose or may give higher i nitial dose if labor coping/assessment w arrants or as directed by provider. May adjust subsequent doses as needed for pain control based on patient response to first dose or labor coping. Hold dose for analgesic side effects. Notify provider to assess for uncontrolled pain or analgesic side effects. For ordered doses up to 100 mcg give IV Push undiluted over a minimum of 3-5 minutes. hydrocortisone 2.5 % cream Rectal, 3 TIMES DAILY PRN, hemorrhoids, Starting 03/06/17 at 0129, Apply to hemorrhoids. Send only if nurse requests. hydrOXYzine (ATARAX) tablet 10 mg 10 mg, Oral, 3 TIMES DAILY PRN, anxiety, Starting 03/06/17 at 0359 ibuprofen (ADVIL/MOTRIN) tablet 800 mg (COMPLETED) 0127 (Given - Provider: Mary Lindsey RN) 800 mg, Oral, ONCE PRN, moderate pain, m ild-moderate pain, Starting 03/05/17 at 1810, For 1 dose, Available for administration after delivery. May give with acetaminophen. ibuprofen (ADVIL/MOTRIN) tablet 800 mg 0 741 (Given - Provider: Deborah Sparks, RN)1427 (Given - Provider: Deborah Sparks, RN)2041 (Given - Provider: Anna Morgan RN) 0721 (Given - Provider: Juanis Isabel) 800 mg, Oral, EVERY 6 HOURS PRN, other, cramping, Starting Mon03/06/17 at 0129, Max dose: 3200 mg/day lactated ringers BOLUS 1,000 mL (COMPLETED) 2036 (New Bag - Provider: Yasmine Phillips, KENNY) Intravenous, 1,000 mL, ONCE PRN, IF mima ent to have epidural or intrathecal narcotics and NOT pre-eclamptic, Starting Mon03/05/17 at 1810, For 1 dose, IV bolus 15-30 min prior to epidural, then IV fluids per labor orders lactated ringers BOLUS 1,000 mL Intravenous, 1,000 mL, ONCE PRN, post-pa rtum hemorrhage, Starting Mon03/06/17 at 0129, For 1 dose, Rate: 500-1000 mL/hr. lactated ringers BOLUS 500 mL (COMPLETED) 1816 (New Ba g - Provider: Lisa Peralta, KENNY) Intravenous, 500 mL, ONCE PRN, per polic y for intrauterine resuscitation or uterine tachysystole, Starting Mon03/05/17 at 1810, For 1 dose lanolin ointment Topical, EVERY 1 HOUR PRN, dry skin, sor e nipples, Starting Mon03/06/17 at 0129, Apply to sore nipples. misoprostol (CYTOTEC) tablet 400 mcg 400 mcg, Oral, ONCE PRN, hemo rrhage, Starting Mon03/06/17 at 0129, For 1 dose naloxone (NARCAN) injection 0.1-0.4 mg 0.1-0.4 mg, Intravenous, EVERY 2 MIN PRN , opioid reversal, for respiratory rate less than or equal to 8, Starting Mon03/06/17 at 0129, For respiratory rate LESS than or EQUAL to 8. Partial reversal dose : 0.1 mg titrated q 2 minutes for Analge bao Side Effects Monitoring Sedation Level of 3 (frequently drowsy, arousable, drifts to sleep during conversation).Full reversal dose: 0.4 mg bolus for Analgesia Side Effects Monitoring Sedation Level of 4 (somnolent, minimal or no response to stimulation). For ordered doses up to 2mg give IVP. Give each 0.4mg over 15 seconds in emergency situations. For non-em ergent situations further dilute in 9mL of NS to facilitate titration of response. naphazoline-pheniramine (OPCON-A/VISINE A/NAPHCON A) o phthalmic solution 1 drop 1 drop, Ophthalmic, 4 TIMES DAILY PRN, dry eyes, Starting Mon at 0358 nitrous oxide/oxygen 50/50 blend (CANCELED) 1844 (Give n - Provider: Lisa Peralta RN)193 (Hold - Provider: Yasmine Phillips RN - Reason: Patient/family refused) Inhalation, CONTINUOUS PRN, episodic vamsi lgesia, Starting Mon03/05/17 at 1848, Only to be self-administered by patient. Patient Agreement for the Administration of Nitrous Oxide during Labor/Immediate P ostpartum period must be signed by mima ent prior to starting nitrous oxide/oxygen blend. ~Nitrous oxide is contraindicated if the patient has received opioid, benzodiazepine or other sedative medicatio n in the previous 2 hours. ~Precaution: If patient has received other medications with sedative side effects such as diphenhydramine, hydroxyzine, prochlorperazine or zolpidem assess level of sedation carefully before starting nitrous oxide. No MMR Needed - Assessment: Patient does not need MMR vaccine CONTINUOUS PRN, Starting Mon03/06/17 at 0129, Until Mon03/07/17 at 1549, Assessment: Patient does not need MMR immunization NO Rho (D) immune globulin (RhoGam) needed - mother Rh POSITIVE CONTINUOUS PRN, Starting Mon03/06/17 at 0129, Until Mon03/07/17 at 1549 No Tdap Needed - Assessment: Patient does not need Tdap vaccine CONTINUOUS PRN, Starting Mon03/06/17 at 0129, Until Mon03/07/17 at 1549, Assessment: Patient does not need Tdap immunization oxytocin (PITOCIN) 30 units in 500 mL 0.9% NaCl infusion (CO MPLETED) 53 (New Bag - Provider: Mary Lindsey RN) 100-340 mL/hr, Intravenous, at 100-340 m L/hr, CONTINUOUS PRN, after delivery to treat or prevent uterine atony, Starting 03/05/17 at 1810, For 1 dose, Administer 340 mL/hr over 30 minutes for a total of 170 mL then decrease to 100 mL/hr un til infusion complete (about 3.5 hours) or per provider direction. Start new bag at delivery. Discontinue or saline lock peripheral IV per nurse discretion. oxytocin (PITOCIN) 30 units in 500 mL 0.9% NaCl infusion 340 mL/hr, Intravenous, at 340 mL/hr, CO NTINUOUS PRN, for hemorrhage UNTIL bleeding subsided, Starting 03/06/17 at 0129, When bleeding subsides decrease rate to 100 mL/hr. Notify provider immediately when infusion begun. oxytocin (PITOCIN) injection 10 Units 10 Units, Intramuscular, ONCE PRN, postp artum hemorrhage IF no IV access is available, Starting 03/06/17 at 0129, For 1 dose senna-docusate (SENOKOT-S;PERICOLACE) 8. 6-50 MG per tablet 1 tablet(Linked Group 1) 0741 (Given - Provider: Sharmin Sparks RN)1927 (Given - Provider: Anna Morgan RN) 1 tablet, Oral, 2 TIMES DAILY PRN, const ipation, Starting 03/06/17 at 0129, If no bowel movement in 24 hours, increase to 2 tablets PO. Hold for loose stools. senna-docusate (SENOKOT-S;PERICOLACE) 8. 6-50 MG per tablet 2 tablet(Linked Group 1) 0741 (See Alternative - Prov ider: Deborah Sparks RN)1927 (See Alternative - Provider: Anna Morgan RN) 2 tablet, Oral, 2 TIMES DAILY PRN, const ipation, Starting 03/06/17 at 0129, Hold for loose stools. sodium phosphate (FLEET ENEMA) 1 enema 1 enema, Rectal, DAILY PRN, constipation , Starting Mon03/08/17 at 0000, Use if bisacodyl not effective Linked Groups Order Group 1: senna-docusate (SENOKOT-S;PERICOLACE) 8.6-50 MG per tablet 1 tabletJump to med 1 tablet, Oral, 2 TIMES DAILY PRN, const ipation, Starting 03/06/17 at 0129
If no bowel movement in 24 hours, increase to 2 tablets PO. Hold for loose stools.
Or senna-docusate (SENOKOT-S;PERICOLACE) 8.6-50 MG per tablet 2 tabletJump to med 2 tablet, Oral, 2 TIMES DAILY PRN, const ipation, Starting 03/06/17 at 0129
Hold for loose stools.
documented in this encounter Care Teams Chainsaw Mechanic Relationship Specialty Start Date End Date Keri Elias PCP - General Family Practice 03/12/15 9 MD Ira Glez David Wayne, MD Orthopedics 07/09/[address] [place] [id number] Astrid Rios PA-C Physician Senior Research Consultant Physician Senior Research Consultant - 07/09/14 Surgical documented as of this encounter
--- OUTSIDE RECORDS SUMMARY | 2021-12-17 15:09 | XMS_ITS | Encounter Summary ---
:1980 Author Organization [place] Address [address] [facility] [address] Care Team Providers Name Role Phone Bebeto Roth MD Unavailable Astrid Rios PA-C Unavailable Keri Elias MD Primary Care Provider Unavailable Reason for Visit Reason Comments Ultrasound Encounter Details Date Type Department Care Team Description 10/19/2016 Orders Only [facility] A trimester [address] [place] [address] [place] [id number] (Wo rk) Social History Tobacco Use Types Packs/Day Years Used Date Smoking Tobacco: Never Smokeless Tobacco: Never Alcohol Use Standard Drinks/Week Comments No 0 (1 standard drink = 0.6 oz pure alcoho l) Sex Assigned at Date Recorded Not on file documented as of this encounter Progress Notes August Ontiveros MD - 10/19/2016 9:20 AM CDT Results for orders placed or performed in visit on 10/19/16 US OB 14 +WKS SINGLE OR FIRST GESTATION (IN CLINIC) Narrative 2nd/3rd Trimester Ultrasound Report CONCLUSIONS: US findings are consistent with LMP EGA by LMP 20w0d VINCENT by LMP :Mar 08, 2017 EGA by this U/S: 12gme2s (+/- 7days): VINCENT by this U/S: 03/07/17 EFW 345.95g, 0lb 12oz Weight Percentile: 63.9%tile Follow up: Routine follow up as needed. PCP: Keri Elias Physician/Transportation Sales Consultant: Shruthi Bland Indications: Standard Exam and survey LMP: Patient's last menstrual period was 06/01/2016. FHR: 153 BPM Fluid: normal JT: 10.83 Placenta Location: Posterior and Fundal number:1 Presentation: Cephalic Technique: Transabdominal Machine: Megadyne Pro 5 SURVEY Cerebellum Intracranial Anatomy Normal (Choroid Plexus, Cisterna Magna, Lateral ventricles, Cerebellum Midline Falx, Cavum Septi Pellucidi) Heart: (4 chamber) Normal Heart:(out flow tracts) Normal Diaphragm Normal Stomach Normal Kidney: Right Normal Left Normal Umbilical Cord: 3 vessels: Normal Insertion: Normal Bladder Normal Spine: Cervical Normal Thoracic Normal L/S Normal 4 limbs visualized Normal Sex Determination:male MEASUREMENTS:(Hadlock) BPD: 4.76 cm 20wks 3d HC: 18.01 cm 20wks 3d AC: 14.91 cm 20wks 1d FL: 3.34 cm 20wks 3d Shruthi Bland, [facility] RVT Attestation of Reviewer. I reviewed the images and agree with with interpretation above. August Ontiveros MD documented in this encounter Plan of Treatment Not on filedocumented as of this encounter Procedures Procedure Name Priority Date/Time Associated Diagnosis Comme nts US OB > 14 WEEKS Routine 10/19/2016 care, second Re sults for this trimester procedure are i n the results section . documented in this encounter Results US OB 14 +WKS SINGLE OR FIRST GESTATION (IN CLINIC) (10/19/2016) Anatomical Region Laterality Modality Abdomen/Pelvis Other Narrative 10/19/2016 2nd/3rd Trimester Ultrasound Report ?? CONCLUSIONS: US findings are consistent with LMP EGA by LMP 20w0d ??VINCENT by LMP :Mar 08 018 EGA by this U/S: [id number] (+/- 7days): ED D by this ??U/S: 03/07/17 ? EFW 345.95g, 0lb 12oz ??Weight Percentil e: 63.9%tile Follow up: Routine follow up as needed. PCP: Keri Elias Physician/Transportation Sales Consultant: Shruthi Ruelas iams Indications: Standard Exam and brittany vey LMP: Patient's last menstrual period was 06/01/2016. ?? FHR: 153 BPM ??Fluid: normal TJ: 10.83 Placenta Location: Posterior and Fundal number:1 ??Presentation: Cephalic Technique: Transabdominal Machine: Megadyne Pro 5 SURVEY ? Cerebellum ? Intracranial Anatomy ? Normal (Choroid Plexus, Cisterna Magna, Lateral ventricles, Cerebellum Midline Falx, Cavum Septi Pellucidi) ? Heart: (4 chamber) Normal Heart:(out flow tracts) ? Normal Diaphragm ? Normal Stomach ? Normal Kidney: Right ? Normal ? Left ? Normal Umbilical Cord: 3 vessels: Normal ?Insertion: Normal Bladder ? Normal Spine: Cervical ? Normal ?Thoracic ? Normal ?L/S ? Normal 4 limbs visualized ? Normal Sex Determination:male MEASUREMENTS:(Hadlock) BPD: 4.76 cm ?? 20wks 3d ?? HC: ?18.01 cm ??20wks 3d ?? AC: ?14.91 cm ??20wks 1d FL: ? 3.34 cm ?? 20wks 3d ?? Shruthi Bland [facility] RVT Attestation of Reviewer. I reviewed the images and agree with eliu singer interpretation above. August Ontiveros MD Steffanie Parker MD IMG US ORDERABLES documented in this encounter Visit Diagnoses Diagnosis care, second trimester documented in this encounter Care Teams Grease Refining Supervisor Relationship Specialty Start Date End Date Keri Elias PCP - General Family Practice 03/12/15 9 MD Ira Glez David Wayne, MD Orthopedics 07/09/14 [facility] [place] [address] Astrid Rios PA-C Physician Backup Sawyer Physician Backup Sawyer - 07/09/14 Surgical documented as of this encounter
--- OUTSIDE RECORDS SUMMARY | 2021-12-17 15:09 | XMS_ITS | Encounter Summary ---
:1980 Author Organization [place] Address [facility] [place] [address] Care Team Providers Name Role Phone Bebeto Roth MD Unavailable Astrid Rios PA-C Unavailable Keri Elias MD Primary Care Provider Unavailable Reason for Visit Reason Onset Date Comments Care f/u Erroneous encounter-disregard 01/27/2017 Encounter Details Date Type Department Care Team Description 01/27/2017 Office Visit Narda [facility] MD [place] ENCOUNTER--DISREGARD [address], ([place]) [address] [place] [address] Social History Tobacco Use Types Packs/Day Years Used Date Smoking Tobacco: Never Smokeless Tobacco: Never Alcohol Use Standard Drinks/Week Comments No 0 (1 standard drink = 0.6 oz pure alcoho l) Sex Assigned at Date Recorded Not on file documented as of this encounter Last Filed Vital Signs Vital Sign Reading Time Taken Comments Blood Pressure 114/76 01/27/2017 2:15 PM [facility] Pulse 99 01/27/2017 2:15 PM [facility] Temperature 36.7 ??C (98 ??F) 01/27/2017 2:15 PM [facility] Respiratory Rate - - Oxygen Saturation 100% 01/27/2017 2:15 PM [facility] SPE[facility] Inhaled Oxygen Concentration - - Weight 79.5 kg (175 lb 3.2 oz) 01/27/2017 2:15 PM [facility] SPEC w / shoes Height - - Body Mass Index 31.04 08/05/2016 8:14 AM CDT documented in this encounter Progress Notes Tristan Pham CMA - 01/27/2017 2:57 PM CST This encounter was opened in error. Please disregard. [facility] documented in this encounter Plan of Treatment Not on filedocumented as of this encounter Visit Diagnoses Diagnosis ERRONEOUS ENCOUNTER--DISREGARD - Primary documented in this encounter Care Teams Medicare Interviewer Relationship Specialty Start Date End Date Keri Elias PCP - General Family Practice 03/12/15 9 MD Ira Glez David Wayne, MD Orthopedics 07/09/[address] [place] [id number] Astrid Rios PA-C Physician Enterprise Project Manager Physician Enterprise Project Manager - 07/09/14 Surgical documented as of this encounter
--- OUTSIDE RECORDS SUMMARY | 2021-12-17 15:09 | XMS_ITS | Encounter Summary ---
:1980 Author Organization [place] Address [address] [place] [address] Care Team Providers Name Role Phone Bebeto Roth MD Unavailable Astrid Rios PA-C Unavailable Keri Elias MD Primary Care Provider Unavailable Reason for Visit Reason Comments Orders Encounter Details Date Type Department Care Team Description 07/25/2016 Orders Only [facility] Orthopaedic Bebeto Roth is (Primary Dx); Clinic MD Devan S/P spinal fusion [address] [place] [id number] [facility] [address] [place] [id number] Social History Tobacco Use Types Packs/Day Years [...] status documented in this encounter Care Teams Curator Horticultural Museum Relationship Specialty Start Date End Date Keri Elias PCP - General Family Practice 03/12/15 9 MD Ira Glez David Wayne, MD Orthopedics 07/09/14 [facility] [place], [place] [id number] Astrid Rios PA-C Physician Wheel Mill Operator Physician Wheel Mill Operator - 07/09/14 Surgical documented as of this encounter
--- OUTSIDE RECORDS SUMMARY | 2021-12-17 15:09 | XMS_ITS | Encounter Summary ---
:1980 Author Organization [place] Address [address] [facility] [place] [address] Care Team Providers Name Role Phone Bebeto Roth MD Unavailable Astrid Rios PA-C Unavailable Keri Elias MD Primary Care Provider Unavailable Reason for Visit Reason Comments Care ob care Refill Request erika Encounter Details Date Type Department Care Team Description 10/11/2016 Office Visit Melisa Sauceda c are, second trimester (Primary Dx); Medicine Clinic MD Lois Nausea; [address] [place] [address], [address] [place] [address] [address] [facility] [address] [place] [id number] [address] [place], [place] [phone] [id number] Social History Tobacco Use Types Packs/Day Years Used Date Smoking Tobacco: Never Smokeless Tobacco: Never Alcohol Use Standard Drinks/Week Comments No 0 (1 standard drink = 0.6 oz pure alcoho l) Sex Assigned at Date Recorded Not on file documented as of this encounter Last Filed Vital Signs Vital Sign Reading Time Taken Comments Blood Pressure 105/73 10/11/2016 3:49 PM CDT Pulse 102 10/11/2016 3:49 PM CDT Temperature 36.8 ??C (98.2 ??F) 10/11/2016 3:49 PM CDT Respiratory Rate 18 10/11/2016 3:49 PM CDT Oxygen Saturation 99% 10/11/2016 3:49 PM CDT Inhaled Oxygen Concentration - - Weight 76.7 kg (169 lb) 10/11/2016 3:49 PM CDT Height - - Body Mass Index 29.94 08/05/2016 8:14 AM CDT documented in this encounter Patient Instructions Patient InstructionsMelisa Hogan MD - 10/11/2016 3:40 PM CDT Here is the plan from today's visit 1. Nausea - ondansetron (ZOFRAN) 4 MG tablet; Take 1 tablet (4 mg) by mouth every 8 hours as needed for nauseaDispense: 30 tablet; Refill: 0 2. Vertigo - meclizine (ANTIVERT) 25 MG tablet; Take 1 tablet (25 mg) by mouth 3 times daily as needed for dizziness Dispense: 30 tablet; Refill: 0 Please call or return to clinic if your symptoms don't go away. Follow up plan: one month Thank you for coming to [facility] today. Lab Testing: If you had lab testing today and your results are reassuring or normal they will be mailed to you or sent through [facility] within 7 days. If the lab tests need quick action we will call you with the results. The phone number we will call with results is # [phone] (home) . If this is not the best numberplease call our clinic and change the number. Medication Refills: If you need any refills please call your pharmacy and they will contact us. If you need to pickling grader your refill at a new pharmacy, please contact the new pharmacy directly. The new pharmacy will help you get your medications transferred faster. Scheduling: If you have any concerns about today's visit or wish to schedule another appointment please call ouroffice during normal business hours [phone] (8- 5:00 M-F) If a referral was made to a [facility] and you don't get a call from [facility] please call [phone]. If a Mammogram was ordered for you at [facility] call [phone] to schedule or change yourappointment. If you had an XRay/CT/Ultrasound/MRI ordered the number is [phone] to schedule or change your radiology appointment. Medical Concerns: If you have urgent medical concerns please call [phone] at any time of the day. documented in this encounter Progress Notes Melisa Hogan MD - 10/11/2016 3:40 PM CDT Return OB visit 18 weeks Subjective: Azul is a 36 year old female at 18w6d who returns for care. VINCENT Mar 08, 2017. - Concerns today: She would like a refill for Zofran and Meclizine for nausea and vertigo. She reports mild nausea but denies vomiting. She has mild abdominal pain but contributes pain to baby getting bigger. Pain is located in the epigastric region. She denies RUQ pain. She also denies fever, shortness of breath, LE edema, constipation and diarrhea. - Patient reports no vaginal bleeding, no contractions, no leakage of fluid. movement is present. - Positive nausea. Novomiting. No heartburn. - No vaginal discharge. No dysuria. - No headache, vision changes, lower extremity swelling, upper abdominal pain, chest pain, shortnessof breath. - Mood has been good. Objective: BP 105/73 Pulse 102 Temp 98.2 ??F (36.8 ??C) (Oral) Resp 18 Wt 169 lb (76.7 kg) LMP 06/01/2016 SpO2 99% BMI 29.94 kg/m2 Const: No distress Abd: Gravid. LE: No edema Cardiac: Tachycardic. No murmur Lungs: CTAB. No wheezing labs: Hemoglobin Date Value Ref Range Status 08/05/2016 17.8 (H) 11.7 - 15.7 g/dL Final Assessment & plan: IUP at 18w6d weeks by LMP consistent with first trimester ultrasound. - not complicated - labs reviewed. Patient is Rh positive: antibody re-screen and rhogam is therefore not indicated. Second trimester hemoglobin will be ordered during follow up visit. - Reviewed survey results with patient:. Repeat ultrasound ordered at 20 weeks GA - Discussed screening for gestational diabetes. 1 hour GCT will be obtained after 24 weeks - weight gain has been -8 lb (-3.629 kg) to date, - Provided counseling regarding labor symptoms, depression and social support systems, breast feeding, contraception options after delivery, baby supplies and car seat, proper seatbelt use during . The patient plans to deliver at [facility] with myself and/or OB partner. care at [facility]. - Patient will continue taking vitamins and avoiding cigarettes & alcohol. - Return to clinic in 4 weeks. - Specific concerns addressed today: 1. Nausea - ondansetron (ZOFRAN) 4 MG tablet; Take 1 tablet (4 mg) by mouth every 8 hours as needed for nauseaDispense: 18 tablet; Refill: 0 2. Vertigo - meclizine (ANTIVERT) 12.5 MG tablet; Take 1 tablet (12.5 mg) by mouth 3 times daily as needed for dizziness Dispense: 30 tablet; Refill: 0 Options for treatment and follow-up care were reviewed with the patient and/or guardian. Azul Alejo Irma Smart and/or guardian engaged in the decision making process and verbalized understanding of the options discussed and agreed with the final plan. Melisa Salvador MD PGY3 [facility] Resident Pager: [phone] Steffanie Parker MD - 10/11/2016 3:40 PM CDT Preceptor Attestation: Patient seen and discussed with the resident. Assessment and plan reviewed with resident and agreedupon. Supervising Physician: Steffanie Parker MD [facility] documented in this encounter Plan of Treatment Not on filedocumented as of this encounter Results US OB 14 +WKS SINGLE OR FIRST GESTATION (IN CLINIC) (10/19/2016) Anatomical Region Laterality Modality Abdomen/Pelvis Other Narrative 10/19/2016 2nd/3rd Trimester Ultrasound Report ?? CONCLUSIONS: US findings are consistent with LMP EGA by LMP 20w0d ??VINCENT by LMP :Faizan 24, 2 018 EGA by this U/S: [id number] (+/- 7days): ED D by this ??U/S: 03/07/17 ? EFW 345.95g, 0lb 12oz ??Weight Percentil e: 63.9%tile Follow up: Routine follow up as needed. PCP: Keri Elias Physician/Breaster: Shruthi Ruelas iams Indications: Standard Exam and brittany vey LMP: Patient's last menstrual period was 06/01/2016. ?? FHR: 153 BPM ??Fluid: normal TJ: 10.83 Placenta Location: Posterior and Fundal number:1 ??Presentation: Cephalic Technique: Transabdominal Machine: [employer] Pro 5 SURVEY ? Cerebellum ? Intracranial [...] cm ?? 20wks 3d ?? Shruthi Bland [facility] RVT Attestation of Reviewer. I reviewed the images and agree with eliu singer interpretation above. August Ontiveros MD Steffanie Parker MD IMG US ORDERABLES documented in this encounter Visit Diagnoses Diagnosis care, second trimester - Primar y Nausea Nausea alone Vertigo Dizziness and giddiness care, second trimester documented in this encounter Care Teams Ship/Rec/Doc Control Relationship Specialty Start Date End Date Keri Elias PCP - General Family Practice 03/12/15 9 MD Ira Glez David Wayne, MD Orthopedics 07/09/14 [facility] [place] [address] Astrid Rios PA-C Physician Decal Applier Physician Decal Applier - 07/09/14 Surgical documented as of this encounter
--- OUTSIDE RECORDS SUMMARY | 2021-12-17 15:09 | XMS_ITS | Encounter Summary ---
:1980 Author Organization [place] Address [address] [facility] [place] [address] Care Team Providers Name Role Phone Bebeto Roth MD Unavailable Astrid Rios PA-C Unavailable Keri Elias MD Primary Care Provider Unavailable Reason for Visit Reason Onset Date Comments Appointment 10/14/2016 Encounter Details Date Type Department Care Team Description 10/14/[address] [facility] Jos Elias, Appointment Clinic [facility] [address], [address] [place], [place] [address] Social History Tobacco Use Types Packs/Day Years Used Date Smoking Tobacco: Never Smokeless Tobacco: Never Alcohol Use Standard Drinks/Week Comments No 0 (1 standard drink = 0.6 oz pure alcoho l) Sex Assigned at Date Recorded Not on file documented as of this encounter Miscellaneous Notes Telephone Encounter - Tala Velasco CMA - 10/18/2016 11:18 AM CDT Patient scheduled for 10/19/16 Telephone Encounter - Tala Velasco CMA - 10/14/2016 3:30 PM CDT Called patient to schedule an Ultrasound appointment. Unable to LVM due to mailbox not being set up.Patient should be scheduled after 20 weeks in staff message from [place]: 20 weeks I believe. Thanks documented in this encounter Plan of Treatment Not on filedocumented as of this encounter Visit Diagnoses Not on filedocumented in this encounter Care Teams Drawing Press Operator Relationship Specialty Start Date End Date Keri Elias PCP - General Family Practice 03/12/15 9 MD Ira Glez David Wayne, MD Orthopedics 07/09/[address] [place] [id number] Astrid Rios PA-C Physician Computer Installer Physician Computer Installer - 07/09/14 Surgical documented as of this encounter
--- OUTSIDE RECORDS SUMMARY | 2021-12-17 15:09 | XMS_ITS | Encounter Summary ---
:1980 Author Organization [place] Address [address] [facility] [place] [address] Care Team Providers Name Role Phone Bebeto Roth MD Unavailable Astrid Rios PA-C Unavailable Keri Elias MD Primary Care Provider Unavailable Reason for Visit Reason Comments Care follow up UTI finnished antibiotics 2 days ago for uti/bladder infection, now urgency and other symptoms have occu red Encounter Details Date Type Department Care Team Description 12/14/2016 Office Visit [facility] Keri Elias of high risk , antepartum (Primary Dx); Medicine Clinic MD [place] Dysuria; [address], Abnorma l maternal glucose tolerance, antepartum; [address] test positive [place] [id number] Social History Tobacco Use Types Packs/Day Years Used Date Smoking Tobacco: Never Smokeless Tobacco: Never Alcohol Use Standard Drinks/Week Comments No 0 (1 standard drink = 0.6 oz pure alcoho l) Sex Assigned at Date Recorded Not on file documented as of this encounter Last Filed Vital Signs Vital Sign Reading Time Taken Comments Blood Pressure 106/62 12/14/2016 8:40 AM CDT Pulse 108 12/14/2016 8:40 AM CDT Temperature 36.6 ??C (97.8 ??F) 12/14/2016 8:40 AM CDT Respiratory Rate 18 12/14/2016 8:40 AM CDT Oxygen Saturation 99% 12/14/2016 8:40 AM CDT Inhaled Oxygen Concentration - - Weight 79.2 kg (174 lb 9.6 oz) 12/14/2016 8:40 AM CDT Height - - Body Mass Index 30.93 08/05/2016 8:14 AM CDT documented in this encounter Progress Notes Keri Elias MD - 12/14/2016 8:20 AM CDT Return OB visit 24-28 weeks Subjective: Azul is a 36 year old female at 28w0d who returns for care. VINCENT Mar 08, 2017. - Concerns today: Frequent UTIs. Monthly. Has been getting rx elsewhere (UCs etc.) Usually treated with macrobid. Just finished a treatment for 5, but still having sxs. - Patient reports no vaginal bleeding, no contractions, no leakage of fluid. movement is present. - No nausea/vomiting. No heartburn. - No vaginal discharge. No dysuria. - Objective: BP 106/62 Pulse 108 Temp 97.8 ??F (36.6 ??C) (Oral) Resp 18 Wt 174 lb 9.6 oz (79.2 kg) LMP06/01/2016 SpO2 99% BMI 30.93 kg/m2 Const: No distress Abd: Gravid. See flowsheet for FH, FHTs, edema. labs: Hemoglobin Date Value Ref Range Status 12/14/2016 9.3 (L) 11.7 - 15.7 g/dL Final Assessment & plan: IUP at 28w0d weeks - complicated by: frequent UTIs - labs reviewed. Patient is Rh pos: antibody re-screen and rhogam is therefore not indicated. Second trimester hemoglobin was ordered. - Discussed screening for gestational diabetes. 1 hour GCT will be obtained today. - Per MD recommendations, repeat syphilis screening done today, RPR ordered - Discussed need for Tdap, patient declined vaccination. Patient declined flu shot this . - weight gain has been -2 lb 6.4 oz (-1.089 kg) to date, which is not adequate. - Discussed progesterone shots because of hx of delivery. Pt not interested. - Patient will continue taking vitamins and avoiding cigarettes & alcohol. - Return to clinic in 2 weeks. - Specific concerns addressed today: 1. Supervision of high risk , antepartum - Glucose Challenge 1 Hr ([facility]) - Hemoglobin (HGB) (LabDA[facility]) - Anti Treponema - blood glucose monitoring (ACCU-CHEK ROSEY PLUS) meter device kit; Use to test blood sugars 3 timesdaily. 1 fasting and 2 one hour after meals Dispense: 1 kit; Refill: 0 - blood glucose monitoring (ACCU-CHEK ROSEY) test strip; Use to test blood sugars 3 times daily or as directed. Dispense: 100 strip; Refill: 0 - blood glucose monitoring (ACCU-CHEK MULTICLIX) lancets; Use to test blood sugar 3 times daily or as directed. Dispense: 100 each; Refill: 0 - BD SHARPS CONTAINER HOME MISC; Use to dispose of needles Dispense: 1 each; Refill: 0 2. Dysuria - Urine Culture Aerobic Bacterial - Urinalysis, Micro If (UA) ([place]) 3. Abnormal maternal glucose tolerance, antepartum Pt says can't tolerate GTT. Will have her monitor glucoses for a while. - blood glucose monitoring (ACCU-CHEK ROSEY PLUS) meter device kit; Use to test blood sugars 3 timesdaily. 1 fasting and 2 one hour after meals Dispense: 1 kit; Refill: 0 - blood glucose monitoring (ACCU-CHEK ROSEY) test strip; Use to test blood sugars 3 times daily or as directed. Dispense: 100 strip; Refill: 0 - blood glucose monitoring (ACCU-CHEK MULTICLIX) lancets; Use to test blood sugar 3 times daily or as directed. Dispense: 100 each; Refill: 0 - BD SHARPS CONTAINER HOME MISC; Use to dispose of needles Dispense: 1 each; Refill: 0 Options for treatment and follow-up care were reviewed with the patient and/or guardian. Azul Solis Smart and/or guardian engaged in the decision making process and verbalized understanding of the options discussed and agreed with the final plan. Keir Elias MD Addendum: Called pt re results of UA and Hb and GCT. Started augmentin 875 bid x 7d. Will plan to start suppression based on result of UC. Pt never started PNV. Reordered. Couldn't tolerate GTT in last even with zofran. So will do 2 weeks of monitoring glucose. Recheck at next visit. documented in this encounter Nursing Notes Hiral Poole RN - 12/14/2016 8:20 AM CDT RN alerted by lab staff of patient's 165 one hour GCT result. RN spoke to patient who advises she had part of a bottle of soda before appointment as she did not know she would be doing test today. RN explained that passing result is <129 and next step would be a 3 hour GCT. Patient stated that she attempted twice to complete 3 hour test with her previous and vomited the solution each time. RN spoke to PCP who agreed to allow patient to perform daily BG checks at home and return with meterto analyze numbers in stead of performing 3 hour test. RN placed orders for glucometer, test strips, lancets, and sharps container per protocol. RN brought patient to exam room for meter teaching. RN reviewed supplies, inserting lancets into lancing device, and how to use lancing device. RN then reviewed inserting strips into meter and applyingblood to strip. Discussed safe disposal of sharps. RN instructed patient to check BG fasting and 2 times postprandial until next visit. Instructed patient to bring meter to next appointment to upload numbers. Patient verbalized understanding. No further questions. Hiral Poole RN documented in this encounter Plan of Treatment Not on filedocumented as of this encounter Procedures Procedure Name Priority Date/Time Associated Diagnosis Comme nts URINE CULTURE Routine 12/14/2016 1:03 PM Dysuria Results for this CDT procedure are i n the results section. ANTI TREPONEMA Routine 12/14/2016 1:01 PM Supervision of high Results for this CDT risk , procedure ar e in antepartum the results section. URINALYSIS, MICRO IF Routine 12/14/2016 9:32 AM Dysuria R esults for this (LAB[facility]Q) CDT procedure are i n the results section. GLUCOSE CHALLENGE Routine 12/14/2016 9:32 AM Supervision of hi gh Results for this GEST SCREEN 1 HOUR CDT risk , proced ure are in (CHALLENGE) (LABDAQ) antepartum the res ults section. HEMOGLOBIN (HGB) Routine 12/14/2016 9:32 AM Supervision of hig h Results for this (LABDAQ) CDT risk , procedure ar e in antepartum the results section. documented in this encounter Results (ABNORMAL) Urine Culture Aerobic Bacterial (12/14/2016 1:03 PM CDT) Component Value Ref Test Analysis Performed At [facility] gist Range Method Time Signature Specimen Midstream Urine INFECTIOUS Description DISEASE DIAGNOSTIC LABORATORY Special Specimen 12/14/2016 [facility] received in 5:38 PM CDT [facility] preservative [facility] Culture Micro 50,000 to 100,000 colonies/mL 2016 INFECTIOUS Proteus mirabilis 9:50 PM CDT DISEASE (A) DIAGNOSTIC LABORATORY Specimen (Source) Anatomical Collection Method Collection Time Re ceived Time Location / / Volume Laterality Examination of 12/14/2016 1:03 12/14/2016 1:08 midstream urine PM CDT PM CDT specimen (procedure) Organism Antibiotic Method Susceptibility Proteus mirabilis Ampicillin KRISTIAN <=2 ug/mL: Rebekah ceptible Proteus mirabilis Cefazolin KRISTIAN <=4 ug/mL: Rebekah ceptible Comment: Cefazolin KRISTIAN breakpoints ar e for the treatment of uncomplicated urinary tract infections. ??For the treat ment of systemic infections, please contact the laboratory for additional te sting. Proteus mirabilis Cefoxitin KRISTIAN <=4 ug/mL: Rebekah ceptible Proteus mirabilis Ceftazidime KRISTIAN <=1 ug/mL: Rebekah ceptible Proteus mirabilis Ceftriaxone KRISTIAN <=1 ug/mL: Rebekah ceptible Proteus mirabilis Ciprofloxacin KRISTIAN <=0.25 ug/mL: Susceptible Proteus mirabilis Gentamicin KRISTIAN <=1 ug/mL: Rebekah ceptible Proteus mirabilis Levofloxacin KRISTIAN <=0.12 ug/mL: Susceptible Proteus mirabilis Nitrofurantoin KRISTIAN 128 ug/mL: Res istant Proteus mirabilis Tobramycin KRISTIAN <=1 ug/mL: Rebekah ceptible Proteus mirabilis Trimethoprim/Sulfamethoxazole KRISTIAN <=1/19 ug/mL: Susceptible Proteus mirabilis Ampicillin/Sulbactam KRISTIAN <=2 ug/mL : Susceptible Proteus mirabilis Piperacillin/Tazo KRISTIAN <=4 ug/mL: S usceptible Proteus mirabilis Cefepime KRISTIAN <=1 ug/mL: Rebekah ceptible Keri Elias MD LAB - MICRO GENERAL ORDERABL ES Performing Organization Address City/[facility]/ZIP Code Phon e Number INFECTIOUS DISEASES [address] [place] [address] DIAGNOSTIC LABORATORY, [facility] INFECTIOUS DISEASE [address] [place] [address], [facility] DIAGNOSTIC LABORATORY [address] [address], [facility] Anti Treponema (12/14/2016 1:01 PM CDT) athologist Signature Treponema Negative NEG^Negati 12/15/2016 AL[place] pallidu ve 9:44 AM CDT CLINICS Antibody [place] Specimen Anatomical Collection Method Collection Time Receive d Time (Source) Location / / Volume Laterality Blood specimen VENOUS BLOOD / 12/14/2016 1:01 PM 12/14 1:06 (specimen) Unknown CDT PM CDT Keri Elias MD LAB - BLOOD ORDERABLES Performing Organization Address City/[facility]/ZIP Code Phon e Number [facility] [place] [address] [facility] [place] [address] 275 (ABNORMAL) Hemoglobin (HGB) (LabDAQ) (12/14/2016 9:32 AM CDT) athologist Signature Hemoglobin 9.3 (L) 11.7 - 15.7 [facility] g/dL MEDICINE LABDAQ Specimen (Source) Anatomical Collection Method Collection Time Re ceived Time Location / / Volume Laterality Blood specimen VENOUS BLOOD / 12/14/2016 9:32 AM (specimen) Unknown CDT Keri Elias MD LAB - LABDAQ Performing Organization Address City/[facility]/ZIP Code Phon e Number [facility] MEDICINE [address] [place], [place] [address] LAB[facility]Q (ABNORMAL) Urinalysis, Micro If (UA) ([place]) (12/14/2016 9:32 AM CDT) [facility] gist Method Time Signature Specific [place] 1.010 1.005 - SMILEYS Urine 1.030 FAMILY MEDICINE LAB[facility] pH Urine 6.0 4.5 - 8.0 [facility] MEDICINE LAB[facility]Q Leukocyte 3+ (A) NEGATIVE [facility] Esterase UR [facility] Nitrite Urine Positive (A) NEGATIVE [facility] Protein UR 2+ (A) NEGATIVE [facility] Glucose Urine Trace (A) NEGATIVE [facility] Ketones Urine Trace (A) NEGATIVE [facility] Urobilinogen 2.0 E.U./dL 0.2 E.U./dL [facility] mg/dL (A) FAMILY [facility]ICINE [facility] Bilirubin UR 1+ (A) NEGATIVE [facility] Blood UR 2+ (A) NEGATIVE [facility] Specimen Anatomical Collection Method Collection Time Receive d Time (Source) Location / / Volume Laterality Urine specimen 12/14/2016 9:32 AM 017 9:32 (specimen) CDT AM CDT Keri Elias MD LAB - LABDAQ Performing Organization Address City/[facility] Code Phon e Number [facility] [address] [place] [phone] LAB[facility]Q (ABNORMAL) Glucose Challenge 1 Hr ([place]) (12/14/2016 9:32 AM CDT) P athologist Signature Glu Gest 165 (H) 0 - 129 [facility] FAMILY Screen 1hr 50g MEDICINE LAB[facility]Q Specimen (Source) Anatomical Collection Method Collection Time Re ceived Time Location / / Volume Laterality Blood specimen VENOUS BLOOD / 12/14/2016 9:32 AM (specimen) Unknown CDT Keri Elias MD LAB - LABDAQ Performing Organization Address City/[facility] Phon e Number [facility] [address] [place] [phone] LAB[facility]Q documented in this encounter Visit Diagnoses Diagnosis Supervision of high risk , ante - Primary Dysuria Abnormal maternal glucose tolerance, ant epartum test positive examination or test, positive result documented in this encounter Care Teams Programmer Analyst Health It Relationship Specialty Start Date End Date Keri Elias PCP - General Family Practice 03/12/15 9 MD Ira Glez, Bebeto Hartman MD Orthopedics 07/09/[address] [place] [address] [address] [place] [address] Astrid Rios PA-C Physician Tar Roofer Physician Tar Roofer - 07/09/14 Surgical documented as of this encounter
--- OUTSIDE RECORDS SUMMARY | 2021-12-17 15:09 | XMS_ITS | Encounter Summary ---
:1980 Author Organization [place] Address [address] [facility] [place] [address] Care Team Providers Name Role Phone Bebeto Roth MD Unavailable Astrid Rios PA-C Unavailable Keri Elias MD Primary Care Provider Unavailable Reason for Visit Reason Comments Care BALA Refill Request Flonase Encounter Details Date Type Department Care Team Description 12/28/2016 Office Visit Narda [facility], Vaginal itch ing (Primary Dx); Medicine Clinic Krei Glez MD Environmental allergies; [address] [place] [address] Social History Tobacco Use Types Packs/Day Years Used Date Smoking Tobacco: Never Smokeless Tobacco: Never Alcohol Use Standard Drinks/Week Comments No 0 (1 standard drink = 0.6 oz pure alcoho l) Sex Assigned at Date Recorded Not on file documented as of this encounter Last Filed Vital Signs Vital Sign Reading Time Taken Comments Blood Pressure 117/79 12/28/2016 8:13 AM HEAD OF PHYSICS Pulse 106 12/28/2016 8:13 AM HEAD OF PHYSICS Temperature 36.9 ??C (98.5 ??F) 12/28/2016 8:13 AM HEAD OF PHYSICS Respiratory Rate 20 12/28/2016 8:13 AM HEAD OF PHYSICS Oxygen Saturation 98% 12/28/2016 8:13 AM HEAD OF PHYSICS Inhaled Oxygen Concentration - - Weight 79.2 kg (174 lb 9.6 oz) 12/28/2016 8:13 AM HEAD OF PHYSICS Height - - Body Mass Index 30.93 08/05/2016 8:14 AM CDT documented in this encounter Progress Notes Keri Elias MD - 12/28/2016 8:00 AM CST Return OB visit 29-34 weeks Subjective: Azul is a 36 year old female at 30w0d who returns for care. VINCENT Mar 08, 2017. - Concerns today: Thinks UTI probably gone. Plan to repeat UC. Start on prophylactic amox. Got sxs of yeast infection from antibiotics. Wants diflucan. Also refill of flonase. Has been checking BS fasting and mostly 1 hr PP. Brought glucometer. Notices levels higher with junk food. Interested in checking HbA1c next visit. Had 4D US. Baby breech and weighing about 2 lbs. - Patient reports no vaginal bleeding, no leakage of fluid. Contractions none. movement is present. - Objective: BP 117/79 Pulse 106 Temp 98.5 ??F (36.9 ??C) (Oral) Resp 20 Wt 174 lb 9.6 oz (79.2 kg) LMP06/01/2016 SpO2 98% BMI 30.93 kg/m2 Const: No distress Abd: Gravid. See flowsheet for FH, FHTs, presentation, edema. labs: - Hemoglobin Date Value Ref Range Status 12/14/2016 9.3 (L) 11.7 - 15.7 g/dL Final Reviewed glucometer. Fastings good. Occ 1 hr PP elevated after ate junk food. Assessment & plan: IUP at 30w0d weeks - complicated by: frequent UTIs - labs reviewed. Patient did not pass 1 hour GCT. Unwilling to take GTT so checking sugars. survey showed no abnormalities requiring follow up ultrasound. - Patient is measuring appropriately for gestational age. weight gain has been -2 lb 6.4 oz (-1.089 kg) to date. - - Return to clinic in 2 weeks. Refilled - fluticasone (FLONASE) 50 MCG/ACT spray; Gorin 1-2 sprays into both nostrils daily Dispense: 16 g; Refill: 3 2. Vaginal itching - fluconazole (DIFLUCAN) 150 MG tablet; Take 1 tablet (150 mg) by mouth once for 1 dose Dispense: 1 tablet; Refill: 0 3. Frequent UTI Urine culture. - amoxicillin (AMOXIL) 250 MG capsule; Take 1 capsule (250 mg) by mouth 3 times daily Dispense: 30 capsule; Refill: 1 Continue to check glucoses. Check HbA1c next visit. Options for treatment and follow-up care were reviewed with the patient and/or guardian. Azul Solis Smart and/or guardian engaged in the decision making process and verbalized understanding of the options discussed and agreed with the final plan. Keri Elias MD OF PHYSICS documented in this encounter Plan of Treatment Not on filedocumented as of this encounter Visit Diagnoses Diagnosis Vaginal itching - Primary Pruritus of genital organs Environmental allergies Allergic rhinitis, cause unspecified Frequent UTI Urinary tract infection, site not specif ied documented in this encounter Care Teams Tobacco Sorter Relationship Specialty Start Date End Date Keri Elias PCP - General Family Practice 03/12/15 9 MD Ira Glez David Wayne, MD Orthopedics 07/09/14 [facility] [address] [place] [address] Astrid Rios PA-C Physician Senior Electrical Designer Physician Senior Electrical Designer - 07/09/14 Surgical documented as of this encounter
--- OUTSIDE RECORDS SUMMARY | 2021-12-17 15:09 | XMS_ITS | Encounter Summary ---
:1980 Author Organization [place] Address [facility] [place] [address] Care Team Providers Name Role Phone Bebeto Roth MD Unavailable Astrid Rios PA-C Unavailable Keri Elias MD Primary Care Provider Unavailable Reason for Visit Reason Comments Care Encounter Details Date Type Department Care Team Description 09/08/2016 Office Visit N[facility] Family Keri Elias First t rimester ; Medicine Clinic MD [place] Nausea; [address] [place] [address], [facility] [address] [place] [phone] Social History Tobacco Use Types Packs/Day Years Used Date Smoking Tobacco: Never Smokeless Tobacco: Never Alcohol Use Standard Drinks/Week Comments No 0 (1 standard drink = 0.6 oz pure alcoho l) Sex Assigned at Date Recorded Not on file documented as of this encounter Last Filed Vital Signs Vital Sign Reading Time Taken Comments Blood Pressure 113/76 09/08/2016 3:59 PM CDT Pulse 102 09/08/2016 3:59 PM CDT Temperature 36.7 ??C (98.1 ??F) 09/08/2016 3:59 PM CDT Respiratory Rate 18 09/08/2016 3:59 PM CDT Oxygen Saturation 97% 09/08/2016 3:59 PM CDT Inhaled Oxygen Concentration - - Weight 76.2 kg (168 lb) 09/08/2016 3:59 PM CDT Height - - Body Mass Index 29.76 08/05/2016 8:14 AM CDT documented in this encounter Progress Notes Keri Elias MD - 09/08/2016 4:00 PM CDT Return OB visit 12-23 weeks Subjective: Azul is a 36 year old female at 14w2d who returns for care. VINCENT Mar 08, 2017. - Concerns today: nausea continuing but milder. Not much vomiting. Continued for most of in previous pregnancies. Reviewed that varicella non-immune. Recommend shot . Objective: BP 113/76 Pulse 102 Temp 98.1 ??F (36.7 ??C) (Oral) Resp 18 Wt 168 lb (76.2 kg) LMP 06/01/2016 SpO2 97% ? No BMI 29.76 kg/m2 Const: No distress Abd: Gravid. See flowsheet for FH, FHTs FH midway between pubic symphysis and umbilicus labs: - Hemoglobin Date Value Ref Range Status 08/05/2016 17.8 (H) 11.7 - 15.7 g/dL Final Assessment & plan: IUP at 14w2d weeks by LMP consistent with first trimester ultrasound. - labs reviewed: - Discussed quad screen. Patient will think about it. - - weight gain has been -9 lb (-4.082 kg) to date, which is not adequate. 1. Second trimester - Patient will continue taking vitamins and avoiding cigarettes & alcohol. - Return to clinic in 4 weeks. - 2. Nausea - ondansetron (ZOFRAN) 4 MG tablet; Take 1 tablet (4 mg) by mouth every 8 hours as needed for nauseaDispense: 18 tablet; Refill: 0 3. Vertigo - meclizine (ANTIVERT) 12.5 MG tablet; [...] with the final plan. Keri Elias MD documented in this encounter Plan of Treatment Not on filedocumented as of this encounter Visit Diagnoses Diagnosis First trimester Nausea Nausea alone Vertigo Dizziness and giddiness documented in this encounter Care Teams Die Cast Operator Relationship Specialty Start Date End Date Keri Elias PCP - General Family Practice 03/12/15 9 MD Ira Glez David Wayne, MD Orthopedics 07/09/[address] [place] [id number] Astrid Rios PA-C Physician Professional Nursing Tutor Physician Professional Nursing Tutor - 07/09/14 Surgical documented as of this encounter
--- OUTSIDE RECORDS SUMMARY | 2021-12-17 15:09 | XMS_ITS | Encounter Summary ---
:1980 Author Organization [place] Address [address] [facility] [address] Care Team Providers Name Role Phone Bebeto Roth MD Unavailable Astrid Rios PA-C Unavailable Keri Elias MD Primary Care Provider Unavailable Encounter Details Date Type Department Care Team Description 12/16/2016 Telephone [facility] [address] [place] [address], [address] [place], [place] [address] Social History Tobacco Use Types Packs/Day Years Used Date Smoking Tobacco: Never Smokeless Tobacco: Never Alcohol Use Standard Drinks/Week Comments No 0 (1 standard drink = 0.6 oz pure alcoho l) Sex Assigned at Date Recorded Not on file documented as of this encounter Miscellaneous Notes Telephone Encounter - Keri Elias MD - 12/16/2016 11:42 AM CDT Called about UC results. Resistant to nitrofurantoin, but sensitive to everything else, including augmentin that I placed her on. Plan: at nest visit will recheck UC. Start her on prophylactic amoxicillin for remainder of . UTI sxs are improving. She is checking her blood sugars, fasting and 1 hr pp. documented in this encounter Plan of Treatment Not on filedocumented as of this encounter Visit Diagnoses Not on filedocumented in this encounter Care Teams Research/Program Director Relationship Specialty Start Date End Date Keri Elias PCP - General Family Practice 03/12/15 9 MD Ira Glez David Wayne, MD Orthopedics 07/09/[address] [place] [id number] Astrid Rios PA-C Physician Senior Benefits Manager Physician Senior Benefits Manager - 07/09/14 Surgical documented as of this encounter
--- OUTSIDE RECORDS SUMMARY | 2021-12-17 15:09 | XMS_ITS | Encounter Summary ---
:1980 Author Organization [place] Address [address] [place] [address] Care Team Providers Name Role Phone Bebeto Roth MD Unavailable Astrid Rios PA-C Unavailable Keri Elias MD Primary Care Provider Unavailable Reason for Visit Reason Onset Date Comments Refill Request 10/03/2016 Meclizine 12.5mg Encounter Details Date Type Department Care Team Description 10/03/2016 Refill [facility] Jasmin Elias Refill Request Clinic [facility] [place] (Meclizine 12.5mg) [address], [address] [place], [place] [address] Social History Tobacco Use Types Packs/Day Years Used Date Smoking Tobacco: Never Smokeless Tobacco: Never Alcohol Use Standard Drinks/Week Comments No 0 (1 standard drink = 0.6 oz pure alcoho l) Sex Assigned at Date Recorded Not on file documented as of this encounter Miscellaneous Notes Telephone Encounter - Kristina Stafford CMA - 10/03/2016 2:30 PM CDT Request for medication refill: Date of last visit at clinic: 09-08-16 Please complete refill if appropriate and CLOSE ENCOUNTER. Closing the encounter signifies the refill is complete. If refill has been denied, please complete the smart phrase .smirefuse and route it to the [facility] pool to inform the patient and the pharmacy. Kristina Stafford documented in this encounter Plan of Treatment Not on filedocumented as of this encounter Visit Diagnoses Diagnosis Vertigo Dizziness and giddiness documented in this encounter Care Teams Filter Changing Technician Relationship Specialty Start Date End Date Keri Elias PCP - General Family Practice 03/12/15 9 MD Ira Glez David Wayne, MD Orthopedics 07/09/[address] [place] [id number] Astrid Rios PA-C Physician Perioperative Manager Physician Perioperative Manager - 07/09/14 Surgical documented as of this encounter
--- OUTSIDE RECORDS SUMMARY | 2021-12-17 15:09 | XMS_ITS | Encounter Summary ---
:1980 Author Organization [place] Address [facility] [place] [address] Care Team Providers Name Role Phone Bebeto Roth MD Unavailable Astrid Rios PA-C Unavailable Keri Elias MD Primary Care Provider Unavailable Reason for Visit Auth/Cert Specialty Diagnoses / Procedures Referred By Contact Refer red To Contact Obstetrics Diagnoses Maternity*VINCENT 03/08/2017/Labor Encounter for triage in patient Labor and delivery, indication for care (normal spontaneous vaginal delivery) [id number] [place] [address] Phone: Referral ID Status Reason Start Date Expiration Date Visits Requ ested Visits Authorized [id number] 1 1 Encounter Details Date Type Department Care Team Description 03/05/2017 Anesthesia Event [facility] Mauricio Hodges es Birthplace MD Flex [address] [id number] [facility] [address] [place] [address] (Wo rk) Anesthesia Record Procedure Summary Procedure Name Responsible Anesthesia Start Time Anesthesia Stop Time Anesthesiologist LABOR ANALGESIA Taye Hodges MD Events Date Time Event Comment 03/05/20172107 Vitals doc by Nurse [id number] AN TIME IN 2121 AN TIME OUT 03/06/2017 001 Vitals doc by Nurse 0015 AN TIME IN 15 Quick Note Patient was expe riencing increased pain. Catheter unfortunately perez s come out to 1cm at the skin. Decision with kati williamson to replace catheter. 0032 AN TIME OUT Name Total lidocaine 1.5%-EPINEPHrine 1:200,000 (epidural) 3 mL bupivacaine 0.125% (epidural) 10 mL Agents No agents on file. Blood No blood administrations on file. Lines, Drains, and Airways Type Details Placement Removal Incision/Surgical Site 10/23/17; 1118; Back 10/23/17 1118 by Yohan Maier RN Intrathecal/Epidural 03/05/17; 2125; 03/05/172125 by 03/06/17 0 115 by Catheter Epidural; Taye Stroud Erpelding, RN; MD Mary Son RN intact documented in this encounter Social History Tobacco Use Types Packs/Day Years Used Date Smoking Tobacco: Never Smokeless Tobacco: Never Alcohol Use Standard Drinks/Week Comments No 0 (1 standard drink = 0.6 oz pure alcoho l) Sex Assigned at Date Recorded Not on file documented as of this encounter OR Notes Anesthesia Procedure Notes - Taye Hodges MD - 03/06/2017 12:35 AM CSTAssociated Order(s): ANE UU EPIDURAL BLOCK Epidural Procedure Note Staff: Anesthesiologist: TAYE HODGES Location: OB Procedure start time: 03/06/2017 12:15 AM Procedure end time: 03/06/2017 12:32 AM Pre-procedure checklist: patient identified, IV checked, site marked, risks and benefits discussed,informed consent, monitors and equipment checked, pre-op evaluation, at physician/surgeon's request and post-op pain management Correct Patient: Yes Correct Position: Yes Correct Site: Yes Correct Procedure: Yes Correct Laterality: Yes Site Marked: Yes Procedure: Procedure: Epidural catheter ASA: 2 Position: Sitting Sterile Prep: chloraprep, mask, sterile gloves and patient draped Insertion site: L4-5 Local skin infiltration: 2% lidocaine amount (mL): 2 Approach: Midline Needle gauge (G): 17 Needle Length (in): 3.5 Block Needle Type: Touhy Injection Technique: LORT saline TOMEKA at (cm): 8 Attempts: 2 Redirects: 2 Catheter gauge (G): 19 Catheter threaded easily: Yes Threaded to cm at skin: 13 Threaded in epidural space (cm): 5 Paresthesias: No Aspiration negative for Heme or CSF: Yes Test dose (mL): 3 Local anesthetic: Lidocaine 1.5% w/ 1:200,000 epinephrine Test dose time: 00:23 Test dose negative for signs of intravascular, subdural or intrathecal injection: Yes ERIST Anesthesia Procedure Notes - Taye Hodges MD - 03/05/2017 9:27 PM MESMERIST Associated Order(s): ANE UU EPIDURAL BLOCK Epidural Procedure Note Staff: Anesthesiologist: TAYE HODGES Location: OB Procedure start time: 03/05/2017 9:08 PM Procedure end time: 03/05/2017 9:27 PM Pre-procedure checklist: patient identified, IV checked, site marked, risks and benefits discussed,informed consent, monitors and equipment checked, pre-op evaluation, at physician/surgeon's request and post-op pain management Correct Patient: Yes Correct Position: Yes Correct Site: Yes Correct Procedure: Yes Correct Laterality: Yes Site Marked: Yes Procedure: Procedure: Epidural catheter ASA: 2 Position: Sitting Sterile Prep: chloraprep, mask, sterile gloves and patient draped Insertion site: L4-5 Local skin infiltration: 2% lidocaine amount (mL): 3 Approach: Midline Needle gauge (G): 17 Needle Length (in): 3.5 Block Needle Type: Touhy Injection Technique: LORT saline TOMEKA at (cm): 6.5 Attempts: 2 Redirects: 1 Catheter gauge (G): 19 Catheter threaded easily: Yes Threaded to cm at skin: 11 Threaded in epidural space (cm): 4.5 Paresthesias: No Aspiration negative for Heme or CSF: Yes Test dose (mL): 3 Local anesthetic: Lidocaine 1.5% w/ 1:200,000 epinephrine Test dose time: 09:18 Test dose negative for signs of intravascular, subdural or intrathecal injection: Yes Assessment/Narrative: Ultrasound used at L4-5 to visualize what appeared to be a normal space. ERIST Anesthesia Preprocedure Evaluation - Taye Hodges MD - 03/05/2017 8:43 PM CST Anesthesia Evaluation history and physical reviewed . No history of anesthetic complications ROS/MED HX ENT/Pulmonary: - neg pulmonary ROS Neurologic: - neg neurologic ROS Cardiovascular: - neg cardiovascular ROS METS/Exercise Tolerance: Hematologic: Musculoskeletal: GI/Hepatic: Renal/Genitourinary: Endo: Psychiatric: Infectious Disease: Malignancy: Other: Physical Exam Normal systems: cardiovascular, pulmonary and dental Airway Mallampati: II TM distance: > 3 FB Neck ROM: full Dental Cardiovascular Pulmonary Other findings: History of spinal fusion to L3. H Anesthesia Plan History & Physical Review ASA Status: . OB Epidural Asa: 2 and emergent Postoperative Care Consents Anesthetic plan, risks, benefits and alternatives discussed with: Patient.. ERIST documented in this encounter Plan of Treatment Not on filedocumented as of this encounter Procedures Procedure Name Priority Date/Time Associated Diagnosis Comme nts ANE EPIDURAL BLOCK Routine 03/06/2017 12:36 AM MESMERIST Procedure Note - Sapna Hodges MD - 03/06/2017 12:35 AM CSTThis note is in progress. Formatting of this note migh t be different from the original. Epidural Procedure Note Staff: Anesthesiologist: TAYE HODGES Location: OB Procedure start time: 2017 12:15 AM Procedure end time: 03/06/19 12:32 AM Pre-procedure checklist: pa tient identified, IV checked, site marked, risks and benefits discussed, informed consent, monitors and equipment checked, pre-op evaluation, at physician/surgeon's request and post-op pain management Correct Patient: Yes Correct Position: Yes Correct Site: Yes Correct Procedure: Yes Correct Laterality: Yes Site Marked: Yes Procedure: Procedure: Epidural cathete r ASA: 2 Position: Sitting Sterile Prep: chloraprep, m ask, sterile gloves and patient draped Insertion site: L4-5 Local skin infiltration: 2% lidocaine amount (mL): 2 Approach: Midline Needle gauge (G): 17 Needle Length (in): 3.5 Block Needle Type: Touhy Injection Technique: TOMEKAT laila piper TOMEKA at (cm): 8 Attempts: 2 Redirects: 2 Catheter gauge (G): 19 Catheter threaded easily: Y es Threaded to cm at skin: 13 Threaded in epidural space (cm): 5 Paresthesias: No Aspiration negative for Hem e or CSF: Yes Test dose (mL): 3 Local anesthetic: Lidocaine 1.5% w/ 1:200,000 epinephrine Test dose time: 00:23 Test dose negative for sign s of intravascular, subdural or intrathecal injection: Yes ANE EPIDURAL BLOCK Routine 03/05/2017 9:29 PM MESMERIST Procedure Note - Sapna Hodges MD - 03/05/2017 9:27 PM CSTThis note is in progress. Formatting of this note migh t be different from the original. Epidural Procedure Note Staff: Anesthesiologist: TAYE HODGES Location: OB Procedure start time: 2017 9:08 PM Procedure end time: 03/05/19 9:27 PM Pre-procedure checklist: pa tient identified, IV checked, site marked, risks and benefits discussed, informed consent, monitors and equipment checked, pre-op evaluation, at physician/surgeon's request and post-op pain management Correct Patient: Yes Correct Position: Yes Correct Site: Yes Correct Procedure: Yes Correct Laterality: Yes Site Marked: Yes Procedure: Procedure: Epidural cathete r ASA: 2 Position: Sitting Sterile Prep: chloraprep, m ask, sterile gloves and patient draped Insertion site: L4-5 Local skin infiltration: 2% lidocaine amount (mL): 3 Approach: Midline Needle gauge (G): 17 Needle Length (in): 3.5 Block Needle Type: Touhy Injection Technique: MARYANNE piper TOMEKA at (cm): 6.5 Attempts: 2 Redirects: 1 Catheter gauge (G): 19 Catheter threaded easily: Y es Threaded to cm at skin: 11 Threaded in epidural space (cm): 4.5 Paresthesias: No Aspiration negative for Hem e or CSF: Yes Test dose (mL): 3 Local anesthetic: Lidocaine 1.5% w/ 1:200,000 epinephrine Test dose time: 09:18 Test dose negative for sign s of intravascular, subdural or intrathecal injection: Yes Assessment/Narrative: Ultrasound used at L4-5 to visualize what appeared to be a normal space. documented in this encounter Visit Diagnoses Not on filedocumented in this encounter Administered Medications Inactive Administered Medications - up to 3 most recent administrations Medication Order MAR Action Action Date Dose Rate Site bupivacaine (MARCAINE) 0.125 % Given 03/05/2017 9:22 PM MESMERIST 5 mL s injection (diluted from stock concentration by MD or MUSIC AGENT) EPIDURAL, PRN, Starting on 03/05/17 at 9, Anesthesia Intra-op Given 03/05/2017 9:19 PM MESMERIST 5 mLs lidocaine-EPINEPHrine 1.5 %-1:[id number] inj ection Given 03/05/2017 9:18 PM MESMERIST 3 mLs EPIDURAL, PRN, Starting on 03/05/17 at 8, Anesthesia Intra-op documented in this encounter Care Teams Biomass Facilitator Relationship Specialty Start Date End Date Keri Elias PCP - General Family Practice 03/12/15 9 MD Ira Glez David Wayne, MD Orthopedics 07/09/14 [facility] [place] [address] Astrid Rios PA-C Physician Chief Projectionist Physician Chief Projectionist - 07/09/14 Surgical documented as of this encounter
--- OUTSIDE RECORDS SUMMARY | 2021-12-17 15:09 | XMS_ITS | Encounter Summary ---
:1980 Author Organization [place] Address [address] [place] [address] Care Team Providers Name Role Phone Bebeto Roth MD Unavailable Astrid Rios PA-C Unavailable Keri Elias MD Primary Care Provider Unavailable Francisco Metz MD Primary Care Provider [phone] Francisco Metz MD Unavailable [phone] Kenton Katz MD Unavailable Unavailable Karen Veliz DO Primary Care Provider Kenton Katz MD Unavailable Unavailable Karen Veliz DO Unavailable Reason for Visit Reason Onset Date Comments Outreach 03/13/2017 Rtn no show #2 Encounter Details Date Type Department Care Team Description 03/13/2017 Telephone [facility] Keri Elias h (Rtn no show Medicine Clinic [facility] [place] #2 ) [address], [address] [place], [place] [address] Social History Tobacco Use Types Packs/Day Years Used Date Smoking Tobacco: Never Smokeless Tobacco: Never Alcohol Use Standard Drinks/Week Comments No 0 (1 standard drink = 0.6 oz pure alcoho l) Sex Assigned at Date Recorded Not on file documented as of this encounter Miscellaneous Notes Telephone Encounter - Yasmine Bailey - 03/13/2017 8:32 AM CST Patient has no showed 2 scheduled appointments. Please use following script to explain no show policy to patient: We see that you have missed some of your [facility] where if you miss too many appointments within 1 year, we may not be able to continue to schedule you. If you are unable to make your scheduled appointments, please call the clinic to cancel prior to your appointment time. AL MEDIA SPECIALIST documented in this encounter Plan of Treatment Not on filedocumented as of this encounter Visit Diagnoses Not on filedocumented in this encounter Care Teams Surgical Tech Relationship Specialty Start Date End Date Keri Elias PCP - General Family Practice 03/12/15 9 MD Isaías Glez Mitchell PCP - General Family Practice 11/14/18 04/02/20 MD Stevie Karen Veliz PCP - General Family Medicine 04/03/20[address] [place] [address] Bebeto Roth MD Orthopedics 07/09/[address] [address] Astrid Rios PA-C Physician Artificial Fly Tier Physician Artificial Fly Tier - 07/09/14 Surgical Francisco Metz Assigned PCP 07/04/19 02/01/20 MD Stevie 2019 [place] [address] Kenton Katz Assigned PCP 02/02/20 08/27/20 MD Felib[facility] NO INFO AVAILABLE Kenton Katz Assigned Endocrinology 08/28/20 07/23/21 MD [place] Provider NO INFO AVAILABLE Karen Veliz, Assigned PCP 08/28/[address] [place] [address] documented as of this encounter
--- OUTSIDE RECORDS SUMMARY | 2021-12-17 15:09 | XMS_ITS | Encounter Summary ---
:1980 Author Organization [place] Address [address] [facility] [place] [address] Care Team Providers Name Role Phone Bebeto Roth MD Unavailable Astrid Rios PA-C Unavailable Keri Elias MD Primary Care Provider Unavailable Francisco Metz MD Primary Care Provider [phone] Francisoc Metz MD Unavailable [phone] Kenton Katz MD Unavailable Unavailable Karen Veliz DO Primary Care Provider Kenton Katz MD Unavailable Unavailable Karen Veliz DO Unavailable Reason for Visit Reason Onset Date Comments No Show 03/27/2017 RTN No Show #3 Encounter Details Date Type Department Care Team Description 03/27/2017 Telephone [facility] Keri Elias No Show (RTN No Show Medicine Clinic [facility] [place] #3) [address], [address] [place], [place] [address] Social History Tobacco Use Types Packs/Day Years Used Date Smoking Tobacco: Never Smokeless Tobacco: Never Alcohol Use Standard Drinks/Week Comments No 0 (1 standard drink = 0.6 oz pure alcoho l) Sex Assigned at Date Recorded Not on file documented as of this encounter Miscellaneous Notes Telephone Encounter - Collin Ty - 03/27/2017 9:57 AM CST This is just an FYI that the patient has no showed 3 appointments. When patient calls back, they will be scheduled on the virtual schedule to meet with you. ICAN HISTORY PROFESSOR documented in this encounter Plan of Treatment Not on filedocumented as of this encounter Visit Diagnoses Not on filedocumented in this encounter Care Teams Waiter/Waitress Captain Relationship Specialty Start Date End Date Keri Elias PCP - General Family Practice 03/12/15 9 MD Isaías Glez Mitchell PCP - General Family Practice 11/14/18 04/02/20 MD Stevie Karen Veliz, PCP - General Family Medicine 04/03/[address] [place] [id number] Bebeto Roth MD Orthopedics 07/09/[address] [id number] Astrid Rios PA-C Physician Automated Teller Manager Physician Automated Teller Manager - 07/09/14 Surgical Francisco Metz Assigned PCP 07/04/19 02/01/20 MD Stevie [address] [place] [id number] Kenton Katz Assigned PCP 02/02/20 08/27/20 MD Fel[place] NO INFO AVAILABLE Kenton Katz Assigned Endocrinology 08/28/20 07/23/21 MD [place] Provider NO INFO AVAILABLE Karen Veliz, Assigned PCP 08/28/[address] [place] [phone] documented as of this encounter
--- OUTSIDE RECORDS SUMMARY | 2021-12-17 15:09 | XMS_ITS | Encounter Summary ---
:1980 Author Organization [place] Address [address] [facility] [place] [address] Care Team Providers Name Role Phone Bebeto Roth MD Unavailable Astrid Rios PA-C Unavailable Keri Elias MD Primary Care Provider Unavailable Reason for Visit Reason Onset Date Comments Call To Schedule Appointment 03/07/2017 PDP-MOM Encounter Details Date Type Department Care Team Description 03/07/2017 Telephone [facility] Keri Elias Call To Schedule Medicine Clinic MD [place] Appointment (PDP-MOM) [address] [place] [address], [address] [place], [place] [address] Social History Tobacco Use Types Packs/Day Years Used Date Smoking Tobacco: Never Smokeless Tobacco: Never Alcohol Use Standard Drinks/Week Comments No 0 (1 standard drink = 0.6 oz pure alcoho l) Sex Assigned at Date Recorded Not on file documented as of this encounter Miscellaneous Notes Telephone Encounter - Tala Velasco CMA - 03/08/2017 11:27 AM CST Patient scheduled 03/23/17 and 04/12/17. CAL SCHEDULER Telephone Encounter - Clarita Gunderson RN - 03/07/2017 3:47 PM CST Please call patient to schedule 2 week and 6 week visits: Date of Delivery: 03/06/17 Date of Discharge: 03/07/17 Please document all calls. Close encounter after appointment is scheduled or after last attempt has been made Clarita Gunderson RN CAL SCHEDULER documented in this encounter Plan of Treatment Not on filedocumented as of this encounter Visit Diagnoses Not on filedocumented in this encounter Care Teams Solvent Plant Treater Relationship Specialty Start Date End Date Keri Elias PCP - General Family Practice 03/12/15 9 MD Ira Glez David Wayne, MD Orthopedics 07/09/14 [facility] [facility] [address] [place] [address] Astrid Rios PA-C Physician Manager Renewable Energy Physician Manager Renewable Energy - 07/09/14 Surgical documented as of this encounter
--- OUTSIDE RECORDS SUMMARY | 2021-12-17 15:09 | XMS_ITS | Encounter Summary ---
:1980 Author Organization [place] Address [address] [place] [address] Care Team Providers Name Role Phone Bebeto Roth MD Unavailable Astrid Rios PA-C Unavailable Keri Elias MD Primary Care Provider Unavailable Reason for Visit Reason Comments Care Check to see if fetus is tur teddy correctly Encounter Details Date Type Department Care Team Description 02/14/2017 Office Visit Narda Mcleod Keri Elias of [facility] MD [place] risk , [address], [address] ([address]) [place], [place] [address] Social History Tobacco Use Types Packs/Day Years Used Date Smoking Tobacco: Never Smokeless Tobacco: Never Alcohol Use Standard Drinks/Week Comments No 0 (1 standard drink = 0.6 oz pure alcoho l) Sex Assigned at Date Recorded Not on file documented as of this encounter Last Filed Vital Signs Vital Sign Reading Time Taken Comments Blood Pressure 135/83 02/14/2017 8:05 AM OUTBOARD MOTOR INSPECTOR Pulse 109 02/14/2017 8:05 AM OUTBOARD MOTOR INSPECTOR Temperature 36.4 ??C (97.6 ??F) 02/14/2017 8:05 AM OUTBOARD MOTOR INSPECTOR Respiratory Rate - - Oxygen Saturation 100% 02/14/2017 8:05 AM OUTBOARD MOTOR INSPECTOR Inhaled Oxygen Concentration - - Weight 79.7 kg (175 lb 12.8 oz) 02/14/2017 8:05 AM OUTBOARD MOTOR INSPECTOR Height - - Body Mass Index 31.14 08/05/2016 8:14 AM CDT documented in this encounter Progress Notes Keri Elias MD - 02/14/2017 8:00 AM CST Return OB visit 35-39 weeks Subjective: Azul is a 36 year old female at 36w6d who returns for care. VINCENT Mar 08, 2017. - Concerns today: saw ortho for R hand sxs. Has a brace. Some L foot discomfort. Checking sugars sporatically. Numbers good as long as eats healthy foods. Forgot to bring FMLA forms. May drop off. Plans to work until goes into labor and take off 6 weeks if vaginal delivery. - Patient reports no vaginal bleeding, no leakage of fluid. Contractions rare. movement is present. - No vaginal discharge. No dysuria. - Objective: BP 135/83 Pulse 109 Temp 97.6 ??F (36.4 ??C) (Oral) Wt 175 lb 12.8 oz (79.7 kg) LMP 06/01/2016 SpO2 100% ? No BMI 31.14 kg/m2 Const: No distress Abd: Gravid. See flowsheet for FH, FHTs, presentation, EFW, edema. labs: Hemoglobin Date Value Ref Range Status 12/14/2016 9.3 (L) 11.7 - 15.7 g/dL Final Assessment & plan: IUP at 36w6d weeks - complicated by: frequent UTIs. On prophylaxis. - - GBS obtained today. - Patient is measuring appropriately for gestational age. weight gain has been -1 lb 3.2 oz (-0.544 kg) to date, which is inadequate. Tdap and flu shot have been refused. -- Return to clinic in 1 week. -Options for treatment and follow-up care were reviewed with the patient and/or guardian. Azul Solis Smart and/or guardian engaged in the decision making process and verbalized understanding of theoptions discussed and agreed with the final plan. Keri Elias MD OARD MOTOR INSPECTOR documented in this encounter Plan of Treatment Not on filedocumented as of this encounter Procedures Procedure Name Priority Date/Time Associated Diagnosis Comme nts GROUP B STREP PCR Routine 02/14/2017 1:07 PM Supervision of hi gh Results for this OUTBOARD MOTOR INSPECTOR risk , procedure ar e in antepartum the results section. documented in this encounter Results Group B strep PCR (GBS) (02/14/2017 1:07 PM OUTBOARD MOTOR INSPECTOR) [facility] Method Time Signature Group B Strep Vaginal 02/14/2017 [facility] PCR Spec Afhad Rectal 9:10 AM OUTBOARD MOTOR INSPECTOR [facility] Group B Strep Negative NEG^Negat 02/15/2017 [facility] franco 11:32 AM OUTBOARD MOTOR INSPECTOR [facility] Comment: No GBS DNA detected, presumed negative f or GBS or number of bacteria may be below the limit of detection of the assa y. Assay performed on incubated broth cultu re of specimen using [employer] real-time PCR. Specimen Anatomical Collection Method Collection Time Receive d Time (Source) Location / / Volume Laterality Vaginal Rectal 02/14/2017 1:07 PM 018 1:12 OUTBOARD MOTOR INSPECTOR PM OUTBOARD MOTOR INSPECTOR Keri Elias MD LAB - MICRO GENERAL ORDERABL ES Performing Organization Address City/State/ZIP Code Phon e Number [id number] [place] [address] [place] documented in this encounter Visit Diagnoses Diagnosis Supervision of high risk , ante - Primary documented in this encounter Care Teams Butter Production Supervisor Relationship Specialty Start Date End Date Keri Elias PCP - General Family Practice 03/12/15 MD Ira Abrams David Wayne, MD Orthopedics 07/09/[address] [place], [place] [id number] [place] [address] Astrid Rios PA-C Physician Night Custodian Physician Night Custodian - 07/09/14 Surgical documented as of this encounter
--- OUTSIDE RECORDS SUMMARY | 2021-12-17 15:09 | XMS_ITS | Encounter Summary ---
:1980 Author Organization [place] Address [address] [facility] [place] [address] Care Team Providers Name Role Phone Bebeto Roth MD Unavailable Astrid Rios PA-C Unavailable Keri Elias MD Primary Care Provider Unavailable Reason for Visit Reason Comments Ultrasound Encounter Details Date Type Department Care Team Description 08/03/2016 Orders Only [place] Shruthi Bland Pregn tyler test Medicine Clinic A positive (Primary Dx) [address] [place] [address] [place] [phone] (Wo rk) Social History Tobacco Use Types Packs/Day Years Used Date Smoking Tobacco: Never Smokeless Tobacco: Never Alcohol Use Standard Drinks/Week Comments No 0 (1 standard drink = 0.6 oz pure alcoho l) Sex Assigned at Date Recorded Not on file documented as of this encounter Progress Notes August Ontiveros MD - 08/03/2016 3:40 PM CDT Results for orders placed or performed in visit on 08/03/16 US OB <14 WKS SINGLE OR FIRST GESTATION (IN CLINIC) Narrative 1st Trimester Ultrasound Report CONCLUSIONS: Viable IUP . US findings are consistent with LMP EGA by LMP: 9wks0d VINCENT by LMP 03/08/17 EGA by this U/S: 9wks3d (+/- 6days): VINCENT by this U/S: 03/05/17 Follow up: Routine follow up as needed. Patient:Azul Garg : PCP:Keri Elias Physician/Director Strategy: Shruthi Bland Indications: Dating LMP: Patient's last menstrual period was 06/01/2016. Technique: Transabdominal Machine: GE Logiq Pro 5 GESTATION & EMBRYO SURVEY: Location of :Intrauterine Cardiac activity: Present at 183 bpm Yolk Sac: Normal Rt Ovary : Unobserved Lt Ovary : Unobserved Measurements: CRL: 2.63 cm 9 wks 3d Shruthi Bland, [facility] RVT Attestation of Reviewer. I reviewed the images and agree with with interpretation above. August Ontiveros MD documented in this encounter Plan of Treatment Not on filedocumented as of this encounter Procedures Procedure Name Priority Date/Time Associated Diagnosis Comme nts US OB < 14 WEEKS Routine 08/03/2016 test Results f or this SINGLE-TRANSABDOMINAL positive proced ure are in the results section . documented in this encounter Results US OB <14 WKS SINGLE OR FIRST GESTATION (IN CLINIC) (08/03/2016) Anatomical Region Laterality Modality Abdomen/Pelvis Other Narrative 08/03/2016 1st Trimester Ultrasound Report CONCLUSIONS: Viable IUP . US findings ar e consistent with LMP EGA by LMP: 9wks0d VINCENT by LMP 03/08/17 EGA by this U/S: 9wks3d (+/- 6days): VINCENT by this ??U/S: 03/05/17 ? Follow up: Routine follow up as needed. Patient:Azul Garg : PCP:Keri Elias Physician/Director Strategy: Shruthi rojo Indications: Dating LMP: Patient's last menstrual period was 06/01/2016. ?? Technique: Transabdominal Machine: GE Logiq Pro 5 GESTATION & EMBRYO SURVEY: Location of :Intrauterine Cardiac activity: Present at 183 bpm Yolk Sac: Normal ? Rt Ovary : Unobserved Lt Ovary : Unobserved Measurements: ? CRL: ??2.63 cm 9 wks 3d Shruthi Bland RDMS RVT Attestation of Reviewer. I reviewed the images and agree with eliu singer interpretation above. August Ontiveros MD Mylene Wilsonxl [employer] MAN CHIEF LIBRARIAN CIRCULATION DEPARTMENT IMG US ORDERABLES documented in this encounter Visit Diagnoses Diagnosis test positive - Primary examination or test, positive result documented in this encounter Care Teams News Library Director Relationship Specialty Start Date End Date Keri Elias PCP - General Family Practice 03/12/15 9 MD Ira Glez David Wayne, MD Orthopedics 07/09/[address] [place] [id number] Astrid Rios PA-C Physician Lube Technician Physician Lube Technician - 07/09/14 Surgical documented as of this encounter
--- OUTSIDE RECORDS SUMMARY | 2021-12-17 15:09 | XMS_ITS | Encounter Summary ---
:1980 Author Organization [place] Address [address] [place] [address] Care Team Providers Name Role Phone Bebeot Roth MD Unavailable Astrid Rios PA-C Unavailable Keri Elias MD Primary Care Provider Unavailable Reason for Referral Diagnostic Imaging XR - Closed Specialty Diagnoses / Procedures Referred By Contact Refer red To Contact Diagnoses S/P spinal fusion Bebeto Roth MD Procedures XR Spine Complete 2 [address] [place], [place] [address] Referral ID Status Reason Start Date Expiration Date Visits Requ ested Visits Authorized [id number] Closed 03/27/2017 03/27/2018 1 1 SECTION IRONER Encounter Details Date Type Department Care Team Description 03/27/2017 Orders Only [facility] Orthopaedic Bebeto Roth S/P spi nal fusion Clinic MD Devan (Primary Dx) [address] [facility] [address] [place] [id number] [phone] Social History Tobacco Use Types Packs/Day Years Used Date Smoking Tobacco: Never Smokeless Tobacco: Never Alcohol Use Standard Drinks/Week Comments No 0 (1 standard drink = 0.6 oz pure alcoho l) Sex Assigned at Date Recorded Not on file documented as of this encounter Plan of Treatment Not on filedocumented as of this encounter Results XR Spine Complete 2 Views (03/30/2017 12:40 PM HALF SECTION IRONER) Anatomical Region Laterality Modality Spine Computed Radiography Specimen (Source) Anatomical Location Collection Method / Collectio n Time Received Time / Laterality Volume Impressions 03/30/2017 1:17 PM HALF SECTION IRONER Impression: 1. Mild right convexed curvature of the main thoracic spine. 2. No ??global sagittal imbalance. 3. Weight bearing axis as detailed above . 4. Stable posterior instrumented fusion from T10 to L3 ALISHA POPE MD Narrative 03/30/2017 1:17 PM HALF SECTION IRONER EXAMINATION: XR SPINE COMPLETE 2 VW, XR [...] No substantial global coronal imbalance. Sagittal Vertical Ambler (A vertical line drawn from the center [...] No substantial global coronal imbalance. Sagittal Vertical Ambler (A vertical line drawn from the center [...] status documented in this encounter Care Teams Ed Educational Aide Relationship Specialty Start Date End Date Keri Elias PCP - General Family Practice 03/12/15 9 MD Ira Glez David Wayne, MD Orthopedics 07/09/14 [facility] [place] [id number] [place] [address] Astrid Rios PA-C Physician Sieve Repairer Physician Sieve Repairer - 07/09/14 Surgical documented as of this encounter
--- OUTSIDE RECORDS SUMMARY | 2021-12-17 15:09 | XMS_ITS | Encounter Summary ---
:1980 Author Organization [place] Address [address] [facility] [place] [address] Care Team Providers Name Role Phone Bebeto Roth MD Unavailable Astrid Rios PA-C Unavailable Keri Elias MD Primary Care Provider Unavailable Reason for Visit Reason Comments Care Encounter Details Date Type Department Care Team Description 02/21/2017 Office Visit Narda Mcleod Keri Elias of [facility] MD [facility] , [address], [address] (Primary [address] D[address]) [place], [place] [address] Social History Tobacco Use Types Packs/Day Years Used Date Smoking Tobacco: Never Smokeless Tobacco: Never Alcohol Use Standard Drinks/Week Comments No 0 (1 standard drink = 0.6 oz pure alcoho l) Sex Assigned at Date Recorded Not on file documented as of this encounter Last Filed Vital Signs Vital Sign Reading Time Taken Comments Blood Pressure 114/78 02/21/2017 7:51 AM LEGAL ADMINISTRATIVE ASSISTANT Pulse 93 02/21/2017 7:51 AM LEGAL ADMINISTRATIVE ASSISTANT Temperature 36.9 ??C (98.5 ??F) 02/21/2017 7:51 AM LEGAL ADMINISTRATIVE ASSISTANT Respiratory Rate 18 02/21/2017 7:51 AM LEGAL ADMINISTRATIVE ASSISTANT Oxygen Saturation 99% 02/21/2017 7:51 AM LEGAL ADMINISTRATIVE ASSISTANT Inhaled Oxygen Concentration - - Weight 80.3 kg (177 lb) 02/21/2017 7:51 AM LEGAL ADMINISTRATIVE ASSISTANT Height - - Body Mass Index 31.35 08/05/2016 8:14 AM CDT documented in this encounter Progress Notes Keri Elias MD - 02/21/2017 7:50 AM CST Return OB visit 35-39 weeks Subjective: Azul is a 36 year old female at 37w6d who returns for care. VINCENT Mar 08, 2017. - Concerns today: various musculoskeletal complaints. Worried about bone cancer. Brought FMLA forms today. - Patient reports no vaginal bleeding, no leakage of fluid. Contractions occ. movement is present. - No vaginal discharge. No dysuria. Objective: BP 114/78 Pulse 93 Temp 98.5 ??F (36.9 ??C) (Oral) Resp 18 Wt 177 lb (80.3 kg) LMP 06/01/2016 SpO2 99% ? No BMI 31.35 kg/m2 Const: No distress Abd: Gravid. See flowsheet for FH, FHTs, presentation, EFW, edema. labs: Hemoglobin Date Value Ref Range Status 12/14/2016 9.3 (L) 11.7 - 15.7 g/dL Final GBS negative Assessment & plan: IUP at 37w6d weeks - complicated by: frequent UTIs, on antibiotic suppression - - Patient is measuring appropriately for gestational age. - Discussed circumcision: Plans to get for son. Will be taking to [facility] clinic. - - Return to clinic in 1 week. Options for treatment and follow-up care were reviewed with the patient and/or guardian. Azul Solis Smart and/or guardian engaged in the decision making process and verbalized understanding of the options discussed and agreed with the final plan. Keri Elias MD L ADMINISTRATIVE ASSISTANT documented in this encounter Plan of Treatment Not on filedocumented as of this encounter Visit Diagnoses Diagnosis Supervision of high risk , ante - Primary documented in this encounter Care Teams Director Of [facility] Relationship Specialty Start Date End Date Keri Elias PCP - General Family Practice 03/12/15 9 MD Ira Glez David Wayne, MD Orthopedics 07/09/[address] [place] [id number] Astrid Rios PA-C Physician C++ Quant Developer Physician C++ Quant Developer - 07/09/14 Surgical documented as of this encounter
--- OUTSIDE RECORDS SUMMARY | 2021-12-17 15:09 | XMS_ITS | Encounter Summary ---
:1980 Author Organization [place] Address [address] [place] [address] Care Team Providers Name Role Phone Bebeto Roth MD Unavailable Astrid Rios PA-C Unavailable Keri Elias MD Primary Care Provider Unavailable Reason for Visit Reason Comments Care NOB Encounter Details Date Type Department Care Team Description 08/05/2016 Office Visit [facility] Family Keri Elias Vertigo (Primary Dx); Medicine Clinic MD [place] test positive; [address], [facility] ; [address] Encounter for supervision of normal first in first trimester; [place], [place] [address] High-risk , first t aspirus [facility] [phone] Social History Tobacco Use Types Packs/Day Years Used Date Smoking Tobacco: Never Smokeless Tobacco: Never Alcohol Use Standard Drinks/Week Comments No 0 (1 standard drink = 0.6 oz pure alcoho l) Sex Assigned at Date Recorded Not on file documented as of this encounter Last Filed Vital Signs Vital Sign Reading Time Taken Comments Blood Pressure 122/81 08/05/2016 8:14 AM CDT Pulse 91 08/05/2016 8:14 AM CDT Temperature 36.9 ??C (98.4 ??F) 08/05/2016 8:14 AM CDT Respiratory Rate 20 08/05/2016 8:14 AM CDT Oxygen Saturation 100% 08/05/2016 8:14 AM CDT Inhaled Oxygen Concentration - - Weight 78.6 kg (173 lb 3.2 oz) 08/05/2016 8:14 AM CDT Height 160 cm (5' 3) 08/05/2016 8:14 AM CDT Body Mass Index 30.68 08/05/2016 8:14 AM CDT documented in this encounter Patient Instructions Patient InstructionsNicole Strickland MD - 08/18/2016 1:20 PM CDT Thank you for coming to [facility]! - If you had lab testing today and your results are normal they will be be mailed to you or sent to your MyChart within seven days. - If the lab tests need quick action we will call you with the results. - If any referrals were ordered today you should be getting a call in the next week. If you don't hear about this within a week please call one of the following numbers --f your referral is for P please call [phone] --If your referral is to outside [facility] please call the clinic number ([phone]) and ask for your team infant caregiver. - If you need any refills please call your pharmacy and they will contact us. - If you have any concerns about today's visit or wish to schedule another appointment please call our office [phone] (8-5:00 M-F) - If you have urgent medical concerns call [phone] at any time of the day. - If you have a medical emergency please call [phone]. Because you are , we have additional resources for you: - You may call Martha Barfield, our OB coordinator at [phone] during normal business hours, for non-urgent questions about your . - Immediate OB help is also available 24 hours a day, seven days a week via the [facility] at [phone]. Reminders: Before 14 weeks: dating ultrasound This ultrasound helps us determine your dates accurately. 15 - 18 weeks: Optional genetic testing (quad screen) This testing helps understand your baby's risk for some genetic abnormalities. 22 - 24 weeks: Growth ultrasound ( survey) This testing will look for early growth abnormalities, and might tell the baby's sex. 24 - 28 weeks: One hour sugar test (GCT) This test helps identify diabetes of . 27 - 36 weeks: Tetanus shot (Tdap) This shot helps protect you and your baby from tetanus and whooping cough. 36 weeks and later: Group B Strep test (GBS) This test helps predict if you need antibiotics in labor to prevent infection in your baby. Anytime October to May: flu shot This shot helps protect you and your family from the flu. This is especially important during ! Once every trimester: blood iron test (hemoglobin) This test helps us know if you will need extra iron to support your baby. At any time during or after your : Some women experience baby blues. We can help you with: ? Feeling anxious, ? Overwhelmed or sad ? Trouble sleeping ? Crying uncontrollably ? Trouble caring for yourself or baby. Again, thank you for choosing [facility]. Please let us know how we can best partner with you to improve your and your family's health. Thank you for coming to [facility]! - If you had lab testing today and your results are normal they will be be mailed to you or sent to your MyChart within seven days. - If the lab tests need quick action we will call you with the results. - If any referrals were ordered today you should be getting a call in the next week. If you don't hear about this within a week please call one of the following numbers --f your referral is for [facility] please call [phone] --If your referral is to outside [facility] please call the clinic number ([phone]) and ask for your team infant caregiver. - If you need any refills please call your pharmacy and they will contact us. - If you have any concerns about today's visit or wish to schedule another appointment please call our office [phone] (8-5:00 M-F) - If you have urgent medical concerns call [phone] at any time of the day. - If you have a medical emergency please call [phone]. Because you are , we have additional resources for you: - You may call Martha Barfield, our OB coordinator at [phone] during normal business hours, for non-urgent questions about your . - Immediate OB help is also available 24 hours a day, seven days a week via the [place] [facility] at [phone]. Reminders: Before 14 weeks: dating ultrasound This ultrasound helps us determine your dates accurately. 15 - 18 weeks: Optional genetic testing (quad screen) This testing helps understand your baby's risk for some genetic abnormalities. 22 - 24 weeks: Growth ultrasound ( survey) This testing will look for early growth abnormalities, and might tell the baby's sex. 24 - 28 weeks: One hour sugar test (GCT) This test helps identify diabetes of . 27 - 36 weeks: Tetanus shot (Tdap) This shot helps protect you and your baby from tetanus and whooping cough. 36 weeks and later: Group B Strep test (GBS) This test helps predict if you need antibiotics in labor to prevent infection in your baby. Anytime October to May: flu shot This shot helps protect you and your family from the flu. This is especially important during ! Once every trimester: blood iron test (hemoglobin) This test helps us know if you will need extra iron to support your baby. At any time during or after your : Some women experience baby blues. We can help you with: ? Feeling anxious, ? Overwhelmed or sad ? Trouble sleeping ? Crying uncontrollably ? Trouble caring for yourself or baby. Again, thank you for choosing [facility]. Please let us know how we can best partner with you to improve your and your family's health. documented in this encounter Progress Notes Keri Elias MD - 08/19/2016 8:30 AM CDT First Obstetric Visit HPI Azul Garg is a 35 year old woman who presents for an initial visit at 9w2d weeksof with VINCENT of Mar 08, 2017 by LMP of Patient's last menstrual period was 06/01/2016.. She has not had bleeding since her LMP. She has Had mild nausea. Taking Zofran prn. Weight loss has occurred, for a total of 4 pounds. OTHER CONCERNS: Took about 5 ativan tablets before realized was for anxiety, vertigo. Has occasional brief episodes of veritgo. Labor Risk Assessment Is the patient's age <18 or >40? No Patint's BMI is Body mass index is 30.68 kg/(m^2). Does patient have a BMI < 18.5? No Prior delivery within 6 months? No Ever delivered prior to 37 weeks gestation? Yes Had PPROM with 1st . Then 2 term deliveries. occur via In Vitro Fertilization? No Are you carrying twins? No The patient has the following additional risk factors for labor: Q5: Previous pre-term delivery (prior to 37 weeks) as documented Labor Risk Summary: Pt is high risk for Labor Yes Past Medical History Past Medical History: Diagnosis Date ??? Abnormal Pap smear in past- normal since then ??? Anemia with ??? Complication of anesthesia Do you have a history of any of the following medical conditions? Condition No/Yes/Details Hypertension No Heart disease, mitral valve prolapse, rheumatic fever No Asthma or another chronic lung disease No An autoimmune disorder No Kidney disease No Frequent urinary tract infections No Migraine headaches No Stroke, loss of sensation/function, seizures, or other neuro problem No Diabetes No Thyroid problems or have you taken thyroid medication No Hepatitis, liver disease, jaundice No Blood clots, phlebitis, pulmonary embolism or varicose veins No Excessive bleeding after surgery or dental work No Heavy menstrual periods requiring treatment No Anemia Yes with Blood transfusions No Would you refuse a blood transfusion? No Breast problems No Abnormalities of the uterus No Abnormal pap smear YES but then normal Have you been treated for an emotional disturbance? YES Ativan for anxiety Have you been physically, sexually, or emotionally hurt by someone? No Have you been in a major accident or suffered serious trauma? No Have you had surgical procedures? No Have you ever had any complications from anesthesia? No Have you ever been hospitalized for a nonsurgical reason? No Genetic Screening Do you have a history of any of the following No/Yes/Details A metabolic disorder (e.g. Insulin-dependent DM, PKU) No Recurrent loss No Do you, the baby's father, or anyone in your families have Thalassemia AND MCV <80 No Hemophilia No Neural tube defect No} Congenital heart defect No Sickle cell disease or trait No Muscular dystrophy No Cystic fibrosis No Mental retardation or autism No Down's syndrome No Lucas-Sach's disease No [place]'s chorea No Any other inherited genetic or chromosomal disorder No A child with defects not listed above No Infection History At high risk for coming in contact with HIV No Ever treated for tuberculosis No Ever received the BCG vaccine for tuberculosis No Ever had genital herpes (or has your partner) No Had a rash or viral illness since LMP No Ever had a sexually transmitted infection No Ever had chicken pox or the vaccine No Ever had any other serious infectious disease No Up to date with immunizations YES Habits Do you currently use tobacco products? No. , Have you ever used alcohol? No, Have you ever used any other drugs? No Current Medications Current Outpatient Prescriptions Medication Sig Dispense Refill ??? meclizine (ANTIVERT) 12.5 MG tablet Take 1 tablet (12.5 mg) by mouth 3 times daily as needed fordizziness 30 tablet 0 ??? fluticasone (FLONASE) 50 MCG/ACT spray Webster 1-2 sprays into both nostrils daily 16 g 3 ??? Vit-Fe Fumarate-FA ( MULTIVITAMIN PLUS IRON) 27-0.8 MG TABS per tablet Take 1 tablet by mouth daily 100 tablet 3 ??? ondansetron (ZOFRAN) 4 MG tablet Take 1 tablet (4 mg) by mouth every 8 hours as needed for nausea 18 tablet 0 ??? LORazepam (ATIVAN) 1 MG tablet Take 0.5-1 tablets (0.5-1 mg) by mouth every 8 hours as needed for anxiety (Patient not taking: Reported on 08/05/2016) 10 tablet 0 ??? hydrocortisone acetate 1 % CREA Externally apply topically 3 times daily Not more than 14 days at a streach (Patient not taking: Reported on 07/04/2016) 28.4 g 0 Review of Systems normal menstrual cycles Physical Exam BP 122/81 Pulse 91 Temp 98.4 ??F (36.9 ??C) (Oral) Resp 20 Ht 5' 3 (160 cm) Wt 173 lb 3.2oz (78.6 kg) LMP 06/01/2016 SpO2 100% BMI 30.68 kg/m2 GENERAL: healthy, alert and no distress EYES: Eyes grossly normal to inspection, extraocular movements - intact, and PERRL HENT: ear canals- normal; TMs- normal; Nose- normal; Mouth- no ulcers, no lesions NECK: no tenderness, no adenopathy, no asymmetry, no masses, no stiffness; thyroid- normal to palpation RESP: lungs clear to auscultation - no rales, no rhonchi, no wheezes BREAST: no masses, no tenderness, no nipple discharge, no palpable axillary masses or adenopathy CV: regular rates and rhythm, normal S1 S2, no S3 or S4 and no murmur, no click or rub - ABDOMEN: soft, no tenderness, no hepatosplenomegaly, no masses, normal bowel sounds MS: extremities- no gross deformities noted, no edema SKIN: no suspicious lesions, no rashes NEURO: strength and tone- normal, sensory exam- grossly normal, mentation- intact, speech- normal, reflexes- symmetric No scars noted.. FHT not palpable Assessment and Plan Azul was seen today for care. Diagnoses and all orders for this visit: Vertigo - meclizine (ANTIVERT) 12.5 MG tablet; Take 1 tablet (12.5 mg) by mouth 3 times daily as needed for dizziness - Cancel: Urinalysis(LabDAQ) - Hemoglobin (HGB) (LabDAQ) - Hepatitis B surface antigen - Hepatitis B Surface Antibody - Anti Treponema - HIV Antigen Antibody Combo - Rubella Antibody IgG Quantitative - Varicella Zoster Virus Antibody IgG - ABO/Rh type and screen - Neisseria gonorrhoeae PCR - Chlamydia trachomatis PCR test positive - Cancel: Urinalysis(LabDAQ) - Hemoglobin (HGB) (LabDAQ) - Hepatitis B surface antigen - Hepatitis B Surface Antibody - Anti Treponema - HIV Antigen Antibody Combo - Rubella Antibody IgG Quantitative - Varicella Zoster Virus Antibody IgG - ABO/Rh type and screen - Neisseria gonorrhoeae PCR - Chlamydia trachomatis PCR - Pap imaged thin layer screen with HPV - recommended age 30 - 65 years (select HPV order below) - HPV High Risk Types DNA Cervical First trimester 35 year old , 9w2d weeks of with VINCENT of Mar 08, 2017 by LMP of Patient's last menstrual period was 06/01/2016.. Risk Assessment: High Risk -Dating US obtained and dating confirmed? YES Taking PNV/Folate? YES - Ordered new OB labs: blood type and antibody screen, HIV, VDRL, hep B, rubella, UA. , gonorrhea/chlamydia, done today. The patient does not have a history of GDM so WILL NOT obtain early GCT. - vitamins previously ordered. Counseling given: - Follow up in 4 weeks for recheck, discuss results, discuss quad screen. - Recommended weight gain for : 11-20 lbs - Instructed on best evidence for: healthy diet and foods to avoid; exercise and activity during ; avoiding exposure to toxoplasmosis; safe use of seatbelts during ; and maintenance of a generally healthy lifestyle Discussed the harms, benefits, side effects and alternative therapies for current prescribed and OTCmedications. Options for treatment and follow-up care were reviewed with the patient and/or guardian. Azul Alejo Irma Smart and/or guardian engaged in the decision making process and verbalized understanding of the options discussed and agreed with the final plan. Keri Elias MD documented in this encounter Plan of Treatment Not on filedocumented as of this encounter Procedures Procedure Name Priority Date/Time Associated Comments Diagnosis ABO/RH TYPE AND Routine 08/05/2016 2:21 PM Vertigo Results for this SCREEN CDT test procedure are in positive the results section. HEPATITIS B SURFACE Routine 08/05/2016 11:55 Vertigo Results for this ANTIBODY AM CDT test procedure are in positive the results section. VARICELLA ZOSTER Routine 08/05/2016 11:55 Vertigo Results for this VIRUS ANTIBODY IGG AM CDT test procedu re are in positive the results section. RUBELLA ANTIBODY IGG Routine 08/05/2016 11:55 Vertigo Results for this AM CDT test procedure are in positive the results section. HIV ANTIGEN ANTIBODY Routine 08/05/2016 11:55 Vertigo Results for this COMBO AM CDT test procedure are in positive the results section. HEPATITIS B SURFACE Routine 08/05/2016 11:55 Vertigo Results for this ANTIGEN AM CDT test procedure are in positive the results section. ANTI TREPONEMA Routine 08/05/2016 11:55 Vertigo Results for this AM CDT test procedure are in positive the results section. PAP IMAGED THIN LAYER Routine 08/05/2016 9:36 AM amy t Results for this SCREEN CDT positive procedure are i n the results section. HPV HIGH RISK TYPES Routine 08/05/2016 9:36 AM test Results for this DNA CERVICAL CDT positive procedure are i n the results section. NEISSERIA GONORRHOEAE Routine 08/05/2016 9:34 AM Vertigo Results for this PCR CDT test procedure are in positive the results section. CHLAMYDIA TRACHOMATIS Routine 08/05/2016 9:34 AM Vertigo Results for this PCR CDT test procedure are in positive the results section. HEMOGLOBIN (HGB) Routine 08/05/2016 9:09 AM Vertigo Results for this (LABDAQ) CDT test procedure are in positive the results section. documented in this encounter Results ABO/Rh type and screen (08/05/2016 2:21 PM CDT) [facility] gist Method Time Signature ABO O [facility] RH(D) Pos [facility] Antibody Neg [facility] Test Valid [facility] w Hospital Specimen 08/08/2016 [facility] Specimen Anatomical Collection Method Collection Time Receive d Time (Source) Location / / Volume Laterality Blood specimen VENOUS BLOOD / 08/05/2016 2:21 PM 08/05 2:26 (specimen) Unknown CDT PM CDT Keri Elias MD LAB - BLOOD BANK TEST ORDER Performing Organization Address City/State/ZIP Code Phon e Number [facility] [address] [place], [place] [id number] [place] [address] Varicella Zoster Virus Antibody IgG (08/05/2016 11:55 AM CDT) P athologist Signature Varicella 0.4 0.0 - 0.8 [facility] Zoster Virus AI [place] [facility] Antibody IgG [facility] Comment: Negative, suggests no immunologic exposu re. Antibody index (AI) values reflect qual itative changes in antibody concentration that cannot be directly a ssociated with clinical condition or disease state. Specimen Anatomical Collection Method Collection Time Receive d Time (Source) Location / / Volume Laterality Blood specimen VENOUS BLOOD / 08/05/2016 11:55 017 (specimen) Unknown AM CDT 12:00 PM CDT Keri Elias MD LAB - BLOOD ORDERABLES Performing Organization Address City/State/ZIP Code Phon e Number [address] Rubella Antibody IgG Quantitative (08/05/2016 11:55 AM CDT) Analysis Performed At Patho logist Time Signature Rubella Antibody 24 IU/mL [facility] OF IgG Quantitative [facility] Comment: Positive. ??Suggests previous exposure o r immunization and probable immunity Reference Range: ?? Unvaccinated Negative 0-7 IU/mL Vaccinated or previous exposure Positiv e 10 IU/ml or greater Specimen Anatomical Collection Method Collection Time Receive d Time (Source) Location / / Volume Laterality Blood specimen VENOUS BLOOD / 08/05/2016 11:55 017 (specimen) Unknown AM CDT 12:00 PM CDT Keri Elias MD LAB - BLOOD ORDERABLES Performing Organization Address City/[facility]/ZIP Code Phon e Number [address] HIV Antigen Antibody Combo (08/05/2016 11:55 AM CDT) Patholo gist Method Time Signature HIV Antigen Nonreactive NR [facility] OF [facility] HIV-1 p24 Ag & HIV-1/HIV-2 Ab Not Detected [facility] Combo [facility] Specimen Anatomical Collection Method Collection Time Receive d Time (Source) Location / / Volume Laterality Blood specimen VENOUS BLOOD / 08/05/2016 11:55 017 (specimen) Unknown AM CDT 12:00 PM CDT Keri Elias MD LAB - BLOOD ORDERABLES Performing Organization Address City/State/ZIP Code Phon e Number [facility] [address] Anti Treponema (08/05/2016 11:55 AM CDT) Analysis Performed At Patho logist Time Signature Treponema Negative NEG [facility] OF [place] [facility] Antibody [facility] Specimen Anatomical Collection Method Collection Time Receive d Time (Source) Location / / Volume Laterality Blood specimen VENOUS BLOOD / 08/05/2016 11:55 017 (specimen) Unknown AM CDT 12:00 PM CDT Keri Elias MD LAB - BLOOD ORDERABLES Performing Organization Address City/[facility]/ZIP Code Phon e Number [facility] [address] (ABNORMAL) Hepatitis B Surface Antibody (08/05/2016 11:55 AM CDT) [facility] Method Time Signature Hepatitis B 378.74 (H) <8.00 [facility] OF Surface m[IU]/mL [facility] Comment: Reactive, Patient is considered to be im mune to infection with hepatitis B when the value is greater than or equal to 1 2.0 m[IU]/mL. Specimen Anatomical Collection Method Collection Time Receive d Time (Source) Location / / Volume Laterality Blood specimen VENOUS BLOOD / 08/05/2016 11:55 017 (specimen) Unknown AM CDT 12:00 PM CDT Keri Elias MD LAB - BLOOD ORDERABLES Performing Organization Address City/[facility]/ZIP Code Phon e Number [address] Hepatitis B surface antigen (08/05/2016 11:55 AM CDT) [facility] Method Time Signature Hep B Surface Nonreactive NR [facility] Specimen Anatomical Collection Method Collection Time Receive d Time (Source) Location / / Volume Laterality Blood specimen VENOUS BLOOD / 08/05/2016 11:55 017 (specimen) Unknown AM CDT 12:00 PM CDT Keri Elias MD LAB - BLOOD ORDERABLES Performing Organization Address City/State/ZIP Code Phon e Number [facility] [address] HPV High Risk Types DNA Cervical (08/05/2016 9:36 AM CDT) Component Value Ref Test Analysis Performed At [facility] Method Time Signature HPV 16 DNA Negative NEG [facility] HPV 18 DNA Negative NEG [facility] Other HR HPV Negative NEG [facility] Final This patient's sample is negative for HPV DNA. [facility] Diagnosis (Note) OF [place] METHODOLOGY: ??The [employer]00 system uses automated extraction, MEDICAL simultaneous amplification of HPV (L1 region) and beta-globi n, [facility] followed by ??real time detection of fluorescent labeled H PV and beta [facility] globin using specific oligonucleotide probes . The test spec ifically identifies types HPV 16 DNA and HPV 18 DNA while concurrentl y detecting the rest of the high risk types (31, 33, 35, 39, 4 5, 51, 52, 56, 58, 59, 66 or 68). COMMENTS: ??This test is not intended for use as a screening device for women under age 30 with normal cervical cytology. ??Resu lts should be correlated with cytologic and histologic findings. Close clinical followup is recommended. This test was developed and its performance characteristics determined by the [facility]. It has not been cleared or approved by the FDA. The laboratory is regulated under CLIA as qualified to perform high-complexity testing. This test is used for clinical purp oses. It should not be regarded as investigational or for research. Specimen Cervical Cells [facility] Description [id number] OF [facility] Specimen Anatomical Collection Method Collection Time Receive d Time (Source) Location / / Volume Laterality Cervical Cells 08/05/2016 9:36 AM 017 CDT 12:04 PM CDT Keri Elias MD LAB - BLOOD ORDERABLES Performing Organization Address City/State/ZIP Code Phon e Number [facility] [address] [place], [place] [id number] [place] [address] Pap imaged thin layer screen with HPV - recommended age 30 - 65 years (select HPV order below) (08/05/2016 9:36 AM CDT) Component Value Ref Test Analysis Performed At [facility] Range Method Time Signature PAP NIL VICKEYATH Hector Report COPATH Acc#: [id number] ?? Signed: 08/09/2016 13:30 ?? MR#: [id number] SPECIMEN/STAIN PROCESS: Pap imaged thin layer prep screening (Surepath, [employer]Point w ith guided screening) ? Pap-Cyto x 1, HPV ordered x 1 SOURCE: Cervical, endocervical ---- Pap imaged thin layer prep screening (Surepath, FocalPoint with guided screening) SPECIMEN ADEQUACY: Satisfactory for evaluation. -Transformation zone component absent. CYTOLOGIC INTERPRETATION: Negative for intraepithelial lesion or malignancy Electronically signed by: ??APOLLO Gregorio (ASCP) CLINICAL HISTORY: LMP: 06/01/2016 , Previous normal pap Date of Last Pap: 04/20/2011, Papanicolaou Test Limitations: ??Cervical cytology is a scre ening test with limited sensitivity; regular screening is critical for cancer prevention; Pap tests are primarily effective for the diagnosis/prevention of squamous cell carcinoma, not adenoca rcinomas or other cancers. TESTING LAB LOCATION: ??[place] [facility], [facility], [address] [place] [phone], Processed and screened at [facility] nt, [facility] Specimen Anatomical Collection Method Collection Time Receive d Time (Source) Location / / Volume Laterality Cervical Cells 08/05/2016 9:36 AM 017 9:15 CDT AM CDT Keri Elias MD LAB - OPTIME CLINICAL SPECIM EN Performing Organization Address City/State/ZIP Code Phon e Number COPATH Chlamydia trachomatis PCR (08/05/2016 9:34 AM CDT) Component Value Ref Test Analysis Performed At [facility] gist Range Method Time Signature Specimen Cervical [facility] Chlamydia Negative NEG [facility] Negative for C. trachomatis rRNA by ct technologist mediated amplification. [place] [facility] A negative result by transc ription mediated amplification does not preclude the [facility] presence of C. trachomatis infection because re sults are dependent on proper BANK and adequate collection, absence of inhibitors, and suffici ent rRNA to be detected. Specimen Anatomical Collection Method Collection Time Receive d Time (Source) Location / / Volume Laterality Specimen from 08/05/2016 9:34 AM 08/06/19 17 vagina CDT 12:03 PM CDT (specimen) Keri Elias MD LAB - MICRO GENERAL ORDERABL ES Performing Organization Address City/State/ZIP Code Phon e Number [phone] [place] [address] [facility] [place] Neisseria gonorrhoeae PCR (08/05/2016 9:34 AM CDT) Component Value Ref Test Analysis Performed At Patholo gist Range Method Time Signature Specimen Cervical [facility] N Gonorrhea Negative NEG [facility] PCR Negative for N. gonorrhoeae rRNA by transcripti on mediated amplification. [facility] A negative result by transc ription mediated amplification does not preclude the [facility] presence of N. gonorrhoeae infection because re sults are dependent on proper BANK and adequate collection, absence of inhibitors, and suffici ent rRNA to be detected. Specimen Anatomical Collection Method Collection Time Receive d Time (Source) Location / / Volume Laterality Specimen from 08/05/2016 9:34 AM 08/06/19 17 vagina CDT 12:03 PM CDT (specimen) Keri Elias MD LAB - MICRO GENERAL ORDERABL ES Performing Organization Address City/State/ZIP Code Phon e Number [id number] [place] [address] (ABNORMAL) Hemoglobin (HGB) ([facility]) (08/05/2016 9:09 AM CDT) P athologist Signature Hemoglobin 17.8 (H) 11.7 - 15.7 [facility] g/dL MEDICINE [facility]Q Specimen Anatomical Collection Method Collection Time Receive d Time (Source) Location / / Volume Laterality Blood specimen VENOUS BLOOD / 08/05/2016 9:09 AM 08/05 9:09 (specimen) Unknown CDT AM CDT Keri Elias MD LAB - LABDAQ Performing Organization Address City/State/ZIP Code Phon e Number [place] [phone] [facility] documented in this encounter Visit Diagnoses Diagnosis Vertigo - Primary Dizziness and giddiness test positive examination or test, positive result First trimester Encounter for supervision of normal firs t in first trimester Supervision of normal first High-risk , first trimester documented in this encounter Care Teams Stylist Apprentice Relationship Specialty Start Date End Date Keri Elias PCP - General Family Practice 03/12/15 9 MD rIa Glez, Bebeto Hartman MD Orthopedics 07/09/[address] [place] [address] Astrid Rios PA-C Physician Ticket Attendant Physician Ticket Attendant - 07/09/14 Surgical documented as of this encounter
--- OUTSIDE RECORDS SUMMARY | 2021-12-17 15:09 | XMS_ITS | Encounter Summary ---
:1980 Author Organization [place] Address [address] [facility] [place] [address] Care Team Providers Name Role Phone Bebeto Roth MD Unavailable Astrid Rios PA-C Unavailable Keri Elias MD Primary Care Provider Unavailable Reason for Visit Reason Onset Date Comments Refill Request 08/11/2016 ondansetron (ZOFRAN) 4 MG tablet Encounter Details Date Type Department Care Team Description 08/11/2016 Refill [facility] Jasmin Elias Refill Request Clinic MD [place] (ondansetron (ZOFRAN) [address] [facility] [address] [place], [place] [address] Social History Tobacco Use Types Packs/Day Years Used Date Smoking Tobacco: Never Smokeless Tobacco: Never Alcohol Use Standard Drinks/Week Comments No 0 (1 standard drink = 0.6 oz pure alcoho l) Sex Assigned at Date Recorded Not on file documented as of this encounter Miscellaneous Notes Telephone Encounter - Kristina Stafford CMA - 08/11/2016 4:45 PM CDT Request for medication refill: Date of last visit at clinic: 08-05-16 Please complete refill if appropriate and CLOSE ENCOUNTER. Closing the encounter signifies the refill is complete. If refill has been denied, please complete the smart phrase .smirefuse and route it to the [facility] pool to inform the patient and the pharmacy. Kristina Stafford Telephone Encounter - Tala Velasco CMA - 08/11/2016 12:38 PM CDT [facility] Family Medicine phone call message- patient requesting a refill: Full Medication Name: ondansetron (ZOFRAN) 4 MG tablet Pharmacy confirmed as [id number] - [place], [place] - [address] AT [facility] [address] [facility] [phone] : Yes Additional Comments: None OK to leave a message on voice mail? Yes Primary language: Moroccan Coach Operator needed? No Call taken on August 11, 2016 at 12:38 PM by Tala Velasco documented in this encounter Plan of Treatment Not on filedocumented as of this encounter Visit Diagnoses Diagnosis Nausea Nausea alone documented in this encounter Care Teams Security Manager Relationship Specialty Start Date End Date Keri Elias PCP - General Family Practice 03/12/15 9 MD Ira Glez, Bebeto Hartman MD Orthopedics 07/09/[address] [place] [address] [address] [place] [address] Astrid Rios PA-C Physician Motorcycle Delivery Driver Physician Motorcycle Delivery Driver - 07/09/14 Surgical documented as of this encounter
--- OUTSIDE RECORDS SUMMARY | 2021-12-17 15:09 | XMS_ITS | Encounter Summary ---
:1980 Author Organization [place] Address [address] [facility] [place] [address] Care Team Providers Name Role Phone Bebeto Roth MD Unavailable Astrid Rios PA-C Unavailable Keri Elias MD Primary Care Provider Unavailable Reason for Visit Reason Onset Date Comments Refill Request 07/08/2016 Kirsten Encounter Details Date Type Department Care Team Description 07/08/[address] [facility] Family Medicine Jasmin Elias Refill Request (Kirsten) Clinic [place] [facility] [address] [place] [address], [address] [place], [place] [address] Social History Tobacco Use Types Packs/Day Years Used Date Smoking Tobacco: Never Smokeless Tobacco: Never Alcohol Use Standard Drinks/Week Comments No 0 (1 standard drink = 0.6 oz pure alcoho l) Sex Assigned at Date Recorded Not on file documented as of this encounter Miscellaneous Notes Telephone Encounter - Clementina Curtis CMA - 07/08/2016 4:30 PM CDT Request for medication refill: Date of last visit at clinic: 07/04/2016 Please complete refill if appropriate and CLOSE ENCOUNTER. Closing the encounter signifies the refill is complete. If refill has been denied, please complete the smart phrase .smirefuse and route it to the [facility] SEWING DEMONSTRATOR pool to inform the patient and the pharmacy. Clementina Curtis CMA Telephone Encounter - Nuzhat Hong 07/08/2016 4:05 PM CDT [facility] Family Medicine phone call message- patient requesting a refill: Full Medication Name: ondansetron (ZOFRAN) tablet 4 mg Pharmacy confirmed as [id number] - [place] - [address] [facility] [place] [phone] : Yes Additional Comments: Patient was unable to make their appointment today as their car broke down. Patient is wondering if she can have a rx until her first OB appt scheduled on 08/05/16. Patient stated she has been prescribed Zofran for every she has had due to nausea. Patient would like rx today but if not possible, she would like to pick this up on Monday. OK to leave a message on voice mail? Yes Primary language: Vietnamese Supervisor Assembly And Packing needed? No Call taken on July 08, 2016 at 4:05 PM by Nuzhat Hong documented in this encounter Plan of Treatment Not on filedocumented as of this encounter Visit Diagnoses Diagnosis Nausea - Primary Nausea alone documented in this encounter Care Teams Sap Grc Security Relationship Specialty Start Date End Date Keri Elias PCP - General Family Practice 03/12/15 9 MD Ira Glez David Wayne, MD Orthopedics 07/09/14 [facility] [address] [facility] [address] [place] [address] Astrid Rios PA-C Physician Principal Administrative Clerk Physician Principal Administrative Clerk - 07/09/14 Surgical documented as of this encounter
--- OUTSIDE RECORDS SUMMARY | 2021-12-17 15:09 | XMS_ITS | Encounter Summary ---
:1980 Author Organization [facility] Address [address] [place] [address]. [place] [address] Care Team Providers Name Role Phone Bebeto Roth MD Unavailable Astrid Rios PA-C Unavailable Keri Elias MD Primary Care Provider Unavailable Reason for Visit Reason Comments Rule Out Labor Auth/Cert Specialty Diagnoses / Procedures Referred By Contact Refer red To Contact Obstetrics Diagnoses Maternity*VINCENT 03/08/2017/Labor Encounter for triage in patient Labor and delivery, indication for care (normal spontaneous vaginal delivery) [address] [address] Phone: Referral ID Status Reason Start Date Expiration Date Visits Requ ested Visits Authorized [id number] 1 1 Encounter Details Date Type Department Care Team Description 03/05/2017 Hospital Encounter [facility] Keri Elias Frequent UTI Birthplace MD [place] [address] [place] [address] Social History Tobacco Use Types Packs/Day Years Used Date Smoking Tobacco: Never Smokeless Tobacco: Never Alcohol Use Standard Drinks/Week Comments No 0 (1 standard drink = 0.6 oz pure alcoho l) Sex Assigned at Date Recorded Not on file documented as of this encounter Last Filed Vital Signs Vital Sign Reading Time Taken Comments Blood Pressure 121/75 03/05/2017 9:15 AM WIRE WEB WORKER Pulse 107 03/05/2017 9:15 AM WIRE WEB WORKER Temperature 37.2 ??C (99 ??F) 03/05/2017 9:15 AM WIRE WEB WORKER Respiratory Rate 16 03/05/2017 9:15 AM WIRE WEB WORKER Oxygen Saturation - - Inhaled Oxygen Concentration - - Weight 79.9 kg (176 lb 3.2 oz) 03/05/2017 9:15 AM WIRE WEB WORKER Height - - Body Mass Index 31.21 08/05/2016 8:14 AM CDT documented in this encounter Discharge Instructions Discharge InstructionsRivka Cantu RN - 03/05/2017 11:52 AM CST Images from the original note were not included. Discharge Instruction for Undelivered Patients Diet: As tolerated. Activity: As tolerated. Call your provider if you notice: Swelling in your face or increased swelling in your hands or legs. Headaches that are not relieved by Tylenol (acetaminophen). Changes in your vision (blurring: seeing spots or stars.) Nausea (sick to your stomach) and vomiting (throwing up). Weight gain of 5 pounds or more per week. Heartburn that doesn't go away. Signs of bladder infection: pain when you urinate (use the toilet), need to go more often and more urgently. The bag of monson (rupture of membranes) breaks, or you notice leaking in your underwear. Bright red blood in your underwear. Abdominal (lower belly) or stomach pain. For first baby: Contractions (tightening) less than 5 minutes apart for one hour or more. Second (plus) baby: Contractions (tightening) less than 10 minutes apart and getting stronger. *If less than 34 weeks: Contractions (tightenings) more than 6 times in one hour. Increase or change in vaginal discharge (note the color and amount) Follow-up: Please call your clinic if you have any questions or concerns. Please follow-up in your clinic for routine care. Kick Counts It???s normal to worry about your baby???s health. One way you can know??your baby???s doing well isto record the baby???s movements once a day. This is called a kick count. You will usually feel yourbaby move by the 20th week of . Remember to take your kick count records to all your appointments with your healthcare provider. How to Count Kicks ?? Choose a time when the baby is active, such as after a meal.? Sit comfortably or lie on your side.? The first time the baby moves,??write down??the time.? Count each movement until the baby has moved??10??times. This can take from 20 minutes to 2??hours.? If the baby hasn???t moved 4??times in 1 hour,??pat your stomach to wake the baby up. ?? Write down the time you feel the baby???s 10th??movement. ?? Try to do it at the same time each day. When to Call Your Healthcare Provider Call your healthcare provider??right away??if you notice any of the following: ?? Your baby moves fewer than 10??times in??2??hours while you???re doing kick counts. ?? Your baby moves much less often than on the??days before. ?? You have not felt your baby move all day. ?? [id number] [employer]. [address] [place] [address]. All rights reserved. This information is not intended as a substitute for professional medical care. Always follow your healthcare professional's instructions. This information has been modified by your health care provider with permission from the publisher. WEB WORKER documented in this encounter Medications at Time of Discharge Medication Sig Dispensed Refills Start Date End Date amoxicillin (AMOXIL) Take 1 capsule (250 30 capsule 1 201703/07/2017 250 MG mg) by mouth daily capsuleIndications: Frequent UTI BD SHARPS CONTAINER Use to dispose of [...] Abnormal maternal glucose tolerance, antepartum fluticasone (FLONASE) [place] 1-2 sprays into 16 g 3 07/05/2017 [...] for (normal spontaneous other (cramping) vaginal delivery) LORazepam (ATIVAN) 1 MG Take 0.5-1 tablets 10 tablet 0 06/1403/07/2017 tabletIndications: (0.5-1 mg) by mouth Anxiety every 8 hours as needed for anxiety meclizine (ANTIVERT) 25 Take 1 tablet (25 [...] 27-0.8 MG TABS per tabletIndications: test positive Vit-Fe Take 1 tablet by 100 tablet 3 12/14/2016 Fumarate-FA ( mouth daily MULTIVITAMIN PLUS IRON) 27-0.8 MG TABS per tabletIndications: test positive senna-docusate Take 1 tablet by 100 tablet 0 03/07/201709/13 (SENOKOT-S;PERICOLACE) mouth 2 times daily 8.6-50 MG per as needed for tabletIndications: constipation (normal spontaneous vaginal delivery) documented as of this encounter Progress Notes Rivka Cantu RN - 03/05/2017 11:39 AM CST Pt was able to walk in hallway and sit on birthing ball between monitoring and repeat SVE. FHR 125 mod with accels and no decels. No change w SVE. Pt seen by Dr. Mitchell Beaulieu and Dr. Olson. D/C instructions reviewed. Pt states understanding of when to call and routine follow-up. Home undelivered w her s/o Shreya. Outpatient w no procedure - Charge. WEB WORKER Rivka Cantu RN - 03/05/2017 9:52 AM CST Pt is here for labor eval. Pt reports feeling irregular ctxs q 4-12 since 0200 and reported pink spotting. Intact. Pt reports lower uterine and back cramping. Talking thru ctxs. Pt would like eval as had had 1 faster labor/delv w the 2d preg. Dr. Mitchell Beaulieu and Dr Olson updated and in to see pt. Per bedside US, cephalic. FHR 125 mod with accels. From [address] Mitchell Beaulieu and Dr Olson to SVE and review tracing. VSS. WEB WORKER documented in this encounter H&P Notes Keri Elias MD - 03/05/2017 9:30 AM CST Images from the original note were not included. [facility] Ob Admit /Triage Note Azul Tellez Age: [age] year old Date of : 1980 Date of Admission: 03/05/2017 9:30 AM Date of service: 03/05/2017. History of Present Illness (Resident / Clinician): Azul Tellez is a patient of Keri Lyon and Dr. Melisa Maher from [facility]. She is a 36 year old who is 39w4d with VINCENT Mar 08, 2017, by Patient's last menstrual period was 06/01/2016. that is consistent with 9w3d US. She is having irregular contractions that are intermittently painful. They occur q12-q3. Her largestbaby was 9 lbs, her fastest labor was painless to 7cm and then 2 hours to delivery in hospital. Her youngest baby is 5 years old. She presents to the [facility] for rule-out labor. She reports irregular contractions starting at 0200, and occurring every 12-3 minutes. She denies fluid leakage. She reports light, watered-down, brown bleeding per vagina. movement is .normal. Her course has been complicated by elevated GCT of 165 but refused 3 hour GTT. Hgb A1c returned at 4.6. Glucometer used to monitor at home: dietary changes made, and low-glycemic diet followed. Also complicated by recurrent UTIs managed by prophylactic Amoxicillin 250 mg. labs Lab Results Component Value Date ABO O 08/05/2016 RH Pos 08/05/2016 Neg 08/05/2016 HEPBANG Nonreactive 08/05/2016 CHPCRT 08/05/2016 Negative Negative for C. trachomatis rRNA by dramatic art teacher mediated amplification. A negative result by dramatic art teacher mediated amplification does not preclude the presence of C. trachomatis infection because results are dependent on proper and adequate collection, absence of inhibitors, and sufficient rRNA to be detected. GCPCRT 08/05/2016 Negative Negative for N. gonorrhoeae rRNA by dramatic art teacher mediated amplification. A negative result by dramatic art teacher mediated amplification does not preclude the presence of N. gonorrhoeae infection because results are dependent on proper and adequate collection, absence of inhibitors, and sufficient rRNA to be detected. TREPAB Negative 12/14/2016 RUBELLAABIGG 48 04/20/2011 HGB 9.3 (L) 12/14/2016 HIV Negative 04/20/2011 GBS Negative 02/14/2017 GBS was collected and Negative on 02/14/17. Weight gain during : -0.363 kg (-12.8 oz). Obstetrical History: She is a 36 year old Her OB history: Obstetric History T2 L3 SAB2 TAB0 Ectopic0 Multiple0 Live Births3 # Outcome Date GA Lbr Michael/2nd Weight Sex Delivery Anes PTL Lv 6 Current 5 Term 10/05/11 40w6d 06:37 / 00:05 3.459 kg (7 lb 10 oz) F Vag-Spont Spinal N BRADY Name: GEOVANY TELLEZ,Yulisa MONREAL Apgar1: 8 Apgar5: 9 4 SAB 3 SAB 2 1 Term Immunzations: Most Recent Immunizations Administered Date(s) Administered ??? HPV 04/07/2009 ??? Influenza (IIV3) PF 12/16/2010 ??? TDAP Vaccine (Adacel) 10/05/2011 Tdap this ?: No Flu shot this ? No Past Medical History: Past Medical History: Diagnosis Date ??? Abnormal Pap smear in past- normal since then ??? Anemia with Past Surgical History: Past Surgical History: Procedure Laterality Date ??? C SPINAL FUSION,ANT,EA ADNL LEVEL 2010 Family History: Family History Problem Relation Age of Onset ??? Family History Negative Other Social History: no tobacco use no alcohol use no illicit drug use Medications: No current facility-administered medications on file prior to encounter. Current Outpatient Prescriptions on File Prior to Encounter: fluticasone (FLONASE) 50 MCG/ACT spray [place] 1-2 sprays into both nostrils daily amoxicillin (AMOXIL) 250 MG capsule Take 1 capsule (250 mg) by mouth 3 times daily Vit-Fe Fumarate-FA ( MULTIVITAMIN PLUS IRON) 27-0.8 MG TABS per tablet Take 1 tablet by mouth daily ondansetron (ZOFRAN) 4 MG tablet Take 1 tablet (4 mg) by mouth every 8 hours as needed for nausea meclizine (ANTIVERT) 25 MG tablet Take 1 tablet (25 mg) by mouth 3 times daily as needed for dizziness blood glucose monitoring (ACCU-CHEK ROSEY PLUS) meter device kit Use to test blood sugars 3 times daily. 1 fasting and 2 one hour after meals blood glucose monitoring (ACCU-CHEK ROSEY) test strip Use to test blood sugars 3 times daily or as directed. blood glucose monitoring (ACCU-CHEK MULTICLIX) lancets Use to test blood sugar 3 times daily or as directed. BD SHARPS CONTAINER HOME MISC Use to dispose of needles amoxicillin-clavulanate (AUGMENTIN) 875-125 MG per tablet Take 1 tablet by mouth 2 times daily (Patient not taking: Reported on 02/21/2017) LORazepam (ATIVAN) 1 MG tablet Take 0.5-1 tablets (0.5-1 mg) by mouth every 8 hours as needed for anxiety (Patient not taking: Reported on 02/21/2017) hydrocortisone acetate 1 % CREA Externally apply topically 3 times daily Not more than 14 days at a streach (Patient not taking: Reported on 02/21/2017) Allergies: Seasonal allergies Review of Systems: CONSTITUTIONAL: no fatigue, no unexpected change in weight. SKIN: no worrisome rashes or lesions. EYES: no acute vision problems or changes. RESP: no significant cough, no shortness of breath. CV: no chest pain, no palpitations, no new or worsening peripheral edema. GI: no nausea, no vomiting, no constipation, no diarrhea. : no frequency, no dysuria, no hematuria. NEURO: no weakness, no dizziness, no headaches. PSYCHIATRIC: NEGATIVE for changes in mood or trouble with sleep. Physical Exam: Vitals: BP 121/75 Pulse 107 Temp 99 ??F (37.2 ??C) (Oral) Resp 16 Wt 79.9 kg (176 lb 3.2 oz) LMP 06/01/2016 BMI 31.21 kg/m2 176 lbs 3.21 oz Estimated body mass index is 31.21 kg/(m^2) as calculated from the following: Height as of 08/05/16: 1.6 m (5' 3). Weight as of this encounter: 79.9 kg (176 lb 3.2 oz). GEN: Awake, alert in no apparent distress. HEENT: grossly normal. RESPIRATORY: no increased work of breathing. CARDIOVASCULAR: warm, well perfused, LE pulses 2/4 and symmetrical. Normal cap refill. ABDOMEN: gravid, vertex by Quique's and bedside US. PELVIC: no fluid noted, scant watery brown blood noted on glove. Presenting part: head. Cervix: 4-5/50/-2 EXT: no edema or calf tenderness. EFW on Exam: 7 lbs. Confirmed VTX by Ultrasound? Yes. NST interpretation: Ordered by Gin Olson DO Start time: 0949 Stop time: 1009 External Monitor, TOCO: Contractions every 10-3 minutes and palpate moderate, irregularly strong. Tracing is Category 1. Frequent reactive accelerations and no decelerations noted. Interpretation: reactive Assessment and Plan: Assessment: Azul Tellez is a 36 year old at 39w4d is possibly in labor. We will reassess after1 hour to determine admit status. Patient Active Problem List Diagnosis ??? Adolescent idiopathic scoliosis ??? Health Residential ??? Acne vulgaris ??? Anxiety ??? Congenital scoliosis ??? Scoliosis ??? Dermatofibroma of left thigh ??? Grief ??? Pain in thoracic spine ??? Other orthopedic aftercare(V54.89) ??? Supervision of high risk , antepartum ??? Frequent UTI ??? Anemia, iron deficiency ??? Encounter for triage in patient Plan: - Observe for 1 hour to monitor cervical change. She has changed greatly from her last clinic check3 weeks ago, but it is unknown when precisely that change occurred. Her contractions are currently irregular in both timing and force. - Based on her 1-hour cervical check, she is not changing currently. We discussed all of the indications for her return, and she and her partner understood and agreed. - Dr. Keri Elias is here managing labor and is informed of the situation. - Will notify the resident partner Dr. Melisa Hogan that they might be returning within 12 hours. - Pain: plans to proceed with labor without pain medication. Is considering NO gas, and reserves theright to change her mind if she wishes. DO [facility] Attestation: This patient has been seen and evaluated by me, Keri Elias on 03/05/2017. I saw and discussed the case with the primary resident the care team. I agree with the findings and plan in this note. I have reviewed today's vital signs, medications, laboratory results. [facility] WEB WORKER documented in this encounter Plan of Treatment Not on filedocumented as of this encounter Visit Diagnoses Diagnosis Frequent UTI Urinary tract infection, site not specif ied Encounter for triage in patient documented in this encounter Care Teams Cement Fittings Maker Relationship Specialty Start Date End Date Keri Elias PCP - General Family Practice 03/12/15 9 MD Ira Glez David Wayne, MD Orthopedics 07/09/[address] [place] [id number] Astrid Rios PA-C Physician Stevedore Hold Physician Stevedore Hold - 07/09/14 Surgical documented as of this encounter
--- OUTSIDE RECORDS SUMMARY | 2021-12-17 15:09 | XMS_ITS | Encounter Summary ---
:1980 Author Organization [facility] Address [facility] [place] [address] Care Team Providers Name Role Phone Bebeto Roth MD Unavailable Astrid Rios PA-C Unavailable Keri Elias MD Primary Care Provider Unavailable Reason for Visit Reason Comments Care BALA Encounter Details Date Type Department Care Team Description 01/10/2017 Office Visit [facility] Keri Elias for condition (Primary Dx); Medicine Clinic MD [place] Recurrent UTI [address] [place] [address], [address] [place], [place] [address] Social History Tobacco Use Types Packs/Day Years Used Date Smoking Tobacco: Never Smokeless Tobacco: Never Alcohol Use Standard Drinks/Week Comments No 0 (1 standard drink = 0.6 oz pure alcoho l) Sex Assigned at Date Recorded Not on file documented as of this encounter Last Filed Vital Signs Vital Sign Reading Time Taken Comments Blood Pressure 108/68 01/10/2017 10:06 AM RIBBON WEAVER Pulse 114 01/10/2017 10:06 AM RIBBON WEAVER Temperature 36.7 ??C (98.1 ??F) 01/10/2017 10:06 AM RIBBON WEAVER Respiratory Rate 18 01/10/2017 10:06 AM RIBBON WEAVER Oxygen Saturation 99% 01/10/2017 10:06 AM RIBBON WEAVER Inhaled Oxygen Concentration - - Weight 78.8 kg (173 lb 12.8 oz) 01/10/2017 10:06 AM RIBBON WEAVER Height - - Body Mass Index 30.79 08/05/2016 8:14 AM CDT documented in this encounter Progress Notes Keri Elias MD - 01/10/2017 10:00 AM CST Return OB visit 29-34 weeks Filled out FMLA forms for baby's father. The medical student acted as scribe and the encounter documented above was completely performed by myself and the documentation reflects the work I have performed today. Keri Elias MD ON WEAVER Jeannette Mayer - 01/10/2017 10:00 AM CST Return OB visit 29-34 weeks ?? Subjective: Azul is a 36 year old female at 31w6d with a history of frequent UTIs who returns for care. VINCENT Mar 08, 2017. - Concerns today: Pt complains of some round ligament and low back pain after travelling for [employer]. Currently taking amoxicillin, no UTI or yeast infection symptoms such as dysuria, vaginal itching, or changes in discharge. Cut out candy and soda from diet, reports 1 hr pp glucose in 120s, fasting glucose 80-90. - Patient reports some vaginal spotting on 01/07/17 following intercourse, no leakage of fluid. Reports occasional Barron Carr contractions. movement is present. - No nausea/vomiting. No heartburn. - No vaginal discharge. No dysuria. - No headache, vision changes, lower extremity swelling, upper abdominal pain, chest pain, shortnessof breath. - Mood has been good. ?? Objective: BP 108/68 Pulse 114 Temp 98.1 ??F (36.7 ??C) (Oral) Resp 18 Wt 173 lb 12.8 oz (78.8 kg) LMP 06/01/2016 SpO2 99% BMI 30.79 kg/m2 Const: No distress Abd: Gravid. See flowsheet for FH, FHTs, presentation, edema. ?? labs: - Hemoglobin Date Value Ref Range Status 12/14/2016 9.3 (L) 11.7 - 15.7 g/dL Final ? Assessment & plan: IUP at 31w6d. ?? - complicated by: recurrent UTIs - labs reviewed. Patient did not pass 1 hour GCT. Unwilling to take GTT so checking sugars. survey showed no abnormalities requiring follow up ultrasound. - Patient is measuring appropriately for gestational age. weight gain has been -3 lb 3.2 oz (-1.452 kg) to date, which is adequate. Weight loss following change in diet to control blood sugar. - Provided counseling regarding: labor signs, hospital readiness, sibling preparation, parenting resources (WIC, etc). - Patient will continue taking vitamins and avoiding cigarettes & alcohol. Pt declinedTdap and flu shot has been given. - education provided: - Supporting a non-medicated - Skin to Skin - Non-separation of mother and baby ?? - Return to clinic in 2 weeks. ?? - Specific concerns addressed today: 1. Frequent UTI - Urinalysis (UA) and urine culture (UC) ([facility]) today -continue amoxicillin, (AMOXIL) 250 MG capsule; Take 1 capsule (250 mg) by mouth 3 times daily Dispense: 30 capsule; Refill: 1 2. Abnormal Maternal Glucose Tolerance, antepartum -continue to monitor blood glucose and encourage healthy diet low in added sugars ? Options for treatment and follow-up care were reviewed with the patient and/or guardian. Azul Solis Smart and/or guardian engaged in the decision making process and verbalized understanding of the options discussed and agreed with the final plan. ?? This note has been scribed by Jeannette Mayer, MS3, on behalf of Dr. Keri Elias. ON WEAVER documented in this encounter Plan of Treatment Not on filedocumented as of this encounter Procedures Procedure Name Priority Date/Time Associated Diagnosis Comme nts HEMOGLOBIN A1C Routine 01/10/2017 11:51 AM Screening for Resul ts for this RIBBON WEAVER condition procedure are i n the results section. URINE CULTURE Routine 01/10/2017 11:36 AM Recurrent UTI Result s for this RIBBON WEAVER procedure are i n the results section. URINALYSIS(LAB[facility]Q) Routine 01/10/2017 10:19 AM Screening for R esults for this RIBBON WEAVER condition procedure are i n the results section. documented in this encounter Results Hemoglobin A1c (01/10/2017 11:51 AM RIBBON WEAVER) P athologist Signature Hemoglobin A1C 4.6 4.3 - 6.0 01/10/2017 [facility] 4:02 PM RIBBON WEAVER [facility] Specimen Anatomical Collection Method Collection Time Receive d Time (Source) Location / / Volume Laterality Blood specimen 01/10/2017 11:51 7 1:05 (specimen) AM RIBBON WEAVER PM RIBBON WEAVER Keri Elias MD LAB - BLOOD ORDERABLES Performing Organization Address City/[facility] Phon e Number [facility] [address] [place], [place] [id number] [place] [address] Urine Culture Aerobic Bacterial (01/10/2017 11:36 AM RIBBON WEAVER) Component Value Ref Test Analysis Performed At [facility] Range Method Time Signature Specimen Midstream Urine INFECTIOUS Description DISEASE DIAGNOSTIC LABORATORY Special Specimen received 01/10/2017 [facility] in preservative 5:40 PM RIBBON WEAVER [facility] Culture Micro >100,000 colonies/mL 01/11/2017 INFE CTIOUS mixed urogenital teresa 5:40 PM RIBBON WEAVER [facility] DIAGNOSTIC LABORATORY Culture Micro Susceptibility 01/11/2017 INFECTIOUS testing not 5:40 PM RIBBON WEAVER DISEASE routinely done DIAGNOSTIC LABORATORY Specimen (Source) Anatomical Collection Method Collection Time Re ceived Time Location / / Volume Laterality Examination of 01/10/2017 11:36 7 1:04 midstream urine AM RIBBON WEAVER PM RIBBON WEAVER specimen (procedure) Keri Elias MD LAB - MICRO GENERAL ORDERABL ES Performing Organization Address [facility] Phon e Number INFECTIOUS DISEASES [address] [place] [id number] DIAGNOSTIC LABORATORY, [facility] INFECTIOUS DISEASE [address] DIAGNOSTIC LABORATORY [address] (ABNORMAL) Urinalysis (UA) ([facility]) (01/10/2017 10:19 AM RIBBON WEAVER) [facility] Method Time Signature Specific [place] 1.025 1.005 - [facility] Urine 1.030 [facility] pH Urine 6.5 4.5 - 8.0 [facility] Leukocyte 1+ (A) NEGATIVE [place] Esterase UR [facility] Nitrite Urine Negative NEGATIVE [facility] Protein UR 1+ (A) NEGATIVE [facility] Glucose Urine Negative NEGATIVE [facility] Ketones Urine Trace (A) NEGATIVE [facility] Urobilinogen 0.2 E.U./dL 0.2 E.U./dL [place] mg/dL [facility] MED[facility]INE LABDAQ Bilirubin UR Negative NEGATIVE [facility] Blood UR 1+ (A) NEGATIVE [facility] Specimen Anatomical Collection Method Collection Time Receive d Time (Source) Location / / Volume Laterality Urine specimen 01/10/2017 10:19 7 (specimen) AM RIBBON WEAVER 10:19 AM RIBBON WEAVER Keri Elias MD LAB - LABDAQ Performing Organization Address City/State/ZIP Code Phon e Number [facility] [address], [place] [address] [facility] documented in this encounter Visit Diagnoses Diagnosis Screening for condition - Primary Screening for unspecified condition Recurrent UTI Urinary tract infection, site not specif ied documented in this encounter Care Teams Centrifugal Casting Machine Operator Relationship Specialty Start Date End Date Keri Elias PCP - General Family Practice 03/12/15 9 MD Ira Glez David Wayne, MD Orthopedics 07/09/[address] [place] [phone] Astrid Rios PA-C Physician Debt Collection Specialist Physician Debt Collection Specialist - 07/09/14 Surgical documented as of this encounter
--- OUTSIDE RECORDS SUMMARY | 2021-12-17 15:10 | XMS_ITS | Encounter Summary ---
:1980 Author Organization [place] Address [facility] [place] [address] Care Team Providers Name Role Phone Bebeto Roth MD Unavailable Astrid Rios PA-C Unavailable Keri Elias MD Primary Care Provider Unavailable Reason for Visit Reason Comments Urinary Problem recurring bladder infection symptoms Recheck Medication did not finish antibiotic an d s questioning if she should continue using them Encounter Details Date Type Department Care Team Description 07/04/2016 Office Visit [facility] Dariel, Mylene C, Pregnan cy test positive (Primary Dx); Medicine Clinic TRAINING ENGINEER LICENSE DISTRIBUTOR Dysuria; [address] [place] [address] [facility]; [address] [place] [address] [phone] (Wo rk) Social History Tobacco Use Types Packs/Day Years Used Date Smoking Tobacco: Never Smokeless Tobacco: Never Alcohol Use Standard Drinks/Week Comments No 0 (1 standard drink = 0.6 oz pure alcoho l) Sex Assigned at Date Recorded Not on file documented as of this encounter Last Filed Vital Signs Vital Sign Reading Time Taken Comments Blood Pressure 112/74 07/04/2016 4:11 PM CDT Pulse 110 07/04/2016 4:11 PM CDT Temperature 36.3 ??C (97.4 ??F) 07/04/2016 4:11 PM CDT Respiratory Rate 22 07/04/2016 4:11 PM CDT Oxygen Saturation 100% 07/04/2016 4:11 PM CDT Inhaled Oxygen Concentration - - Weight 80.4 kg (177 lb 3.2 oz) 07/04/2016 4:11 PM CDT Height 160 cm (5' 3) 07/04/2016 4:11 PM CDT Body Mass Index 31.39 07/04/2016 4:11 PM CDT documented in this encounter Patient Instructions Patient InstructionsDarielMyleneBLAYNE CNP - 07/04/2016 4:00 PM CDT Here is the plan from today's visit 1. Dysuria - Urine Culture Aerobic Bacterial - nitrofurantoin, macrocrystal-monohydrate, (MACROBID) 100 MG capsule; Take 1 capsule (100 mg) by mouth 2 times daily for 7 days Dispense: 14 capsule; Refill: 0 2. Anxiety - LORazepam (ATIVAN) 1 MG tablet; Take 0.5-1 tablets (0.5-1 mg) by mouth every 8 hours as needed foranxiety Dispense: 10 tablet; Refill: 0 3. Encounter for medication refill - LORazepam (ATIVAN) 1 MG tablet; Take 0.5-1 tablets (0.5-1 mg) by mouth every 8 hours as needed foranxiety Dispense: 10 tablet; Refill: 0 4. Environmental allergies - fluticasone (FLONASE) 50 MCG/ACT spray; [place] 1-2 sprays into both nostrils daily Dispense: 16 g; Refill: 3 5. test positive - HCG Qualitative Urine (UPT) ([facility]) Results for orders placed or performed in visit on 07/04/16 HCG Qualitative Urine (UPT) ([facility]) Result Value Ref Range HCG Qual Urine POSITIVE Negative Thank you for coming to [facility] today. Lab Testing: If you had lab testing today and your results are reassuring or normal they will be mailed to you or sent through [facility] within 7 days. If the lab tests need quick action we will call you with the results. The phone number we will call with results is # [phone] (home) . If this is not the best numberplease call our clinic and change the number. Medication Refills: If you need any refills please call your pharmacy and they will contact us. If you need to picker machine operator your refill at a new pharmacy, please contact the new pharmacy directly. The new pharmacy will help you get your medications transferred faster. Scheduling: If you have any concerns about today's visit or wish to schedule another appointment please call ouroffice during normal business hours [phone] (8- 5:00 M-F) If a referral was made to a [facility] and you don't get a call from [facility] please call [phone]. If a Mammogram was ordered for you at [facility] call [phone] to schedule or change yourappointment. If you had an XRay/CT/Ultrasound/MRI ordered the number is [phone] to schedule or change your radiology appointment. Medical Concerns: If you have urgent medical concerns please call [phone] at any time of the day. If you have a medical emergency please call 911. documented in this encounter Progress Notes Mylene Vieira APRN CNP - 07/04/2016 4:00 PM CDT HPI: Azul Garg is a 35 year old who presents for the following Patient presents with: Urinary Problem: recurring bladder infection symptoms Recheck Medication: did not finish antibiotic and s questioning if she should continue using them Was treated for UTI on 06/12/16 after being seen at [facility], took only a few days and then stopped after she was feeling better. Onset of dysuria, urinary frequency and urgency, low urine output this morning. +Lower abdominal cramping since over the weekend. Has been miserable today. Positive test this morning. Took Pyridium today for symptom relief. LMP: 06/01/16. Wasn't not trying to get . Is feeling fine about . Has three children. +Breast tenderness. Problem, Medication and Allergy Lists were reviewed and are current. Patient is an established patient of this clinic. Review of Systems: Review of Systems Constitutional: Negative. Respiratory: Negative. Cardiovascular: Negative. Gastrointestinal: Positive for abdominal pain. Negative for diarrhea, nausea and vomiting. Genitourinary: Positive for dysuria, frequency and urgency. Negative for vaginal bleeding and vaginal pain. Physical Exam: Patient Vitals for the past 24 hrs: BP Temp Temp src Pulse Resp SpO2 Height Weight 07/04/16 1611 112/74 97.4 ??F (36.3 ??C) Oral 110 22 100 % 5' 3 (160 cm) 177 lb 3.2 oz (80.4 kg) Body mass index is 31.39 kg/(m^2). Vitals were reviewed and were normal Physical Exam Constitutional: She is oriented to person, place, and time. She appears well- nourished. No distress. Cardiovascular: Normal rate and regular rhythm. Pulmonary/Chest: Effort normal and breath sounds normal. Abdominal: Soft. There is tenderness in the suprapubic area. There is no CVA tenderness. Neurological: She is alert and oriented to person, place, and time. Results: Results from the last 24 hours Results for orders placed or performed in visit on 07/04/16 (from the past 24 hour(s)) HCG Qualitative Urine (UPT) ([facility]) Result Value Ref Range HCG Qual Urine POSITIVE Negative Assessment and Plan Azul was seen today for urinary problem and recheck medication. Diagnoses and all orders for this visit: test positive - , 4+6 week female with VINCENT: 03/09/17 based on LMP - HCG Qualitative Urine (UPT) ([facility]) - Vit-Fe Fumarate-FA ( MULTIVITAMIN PLUS IRON) 27-0.8 MG TABS per tablet; Take 1 tablet by mouth daily - US OB < 14 Weeks Single; Future - dating ultrasound to be completed after 07/28/16. Dysuria - Cancel: Urinalysis, Micro If (UA) ([facility]) - unable to run due to patient taking pyridium - Urine Culture Aerobic Bacterial - pending - nitrofurantoin, macrocrystal-monohydrate, (MACROBID) 100 MG capsule; Take 1 capsule (100 mg) by mouth 2 times daily for 7 days Medication refills Anxiety - LORazepam (ATIVAN) 1 MG tablet; Take 0.5-1 tablets (0.5-1 mg) by mouth every 8 hours as needed foranxiety Environmental allergies - fluticasone (FLONASE) 50 MCG/ACT spray; [place] 1-2 sprays into both nostrils daily Options for treatment and follow-up care were reviewed with the patient. Azul Garg engaged in the decision making process and verbalized understanding of the options discussed and agreed with the final plan. Mylene Vieira APRN CNP documented in this encounter Plan of Treatment Not on filedocumented as of this encounter Procedures Procedure Name Priority Date/Time Associated Comments Diagnosis URINE CULTURE Routine 07/04/2016 4:37 PM Dysuria Results for this CDT procedure are i n the results section. HCG QUALITATIVE URINE Routine 07/04/2016 4:24 PM amy t Results for this ([facility]) CDT positive procedure are i n the results section. documented in this encounter Results (ABNORMAL) Urine Culture Aerobic Bacterial (07/04/2016 4:37 PM CDT) Component Value Ref Test Analysis Performed At Patholo gist Range Method Time Signature Specimen Midstream Urine [facility] Special Specimen received [facility] Requests in preservative [facility] Culture Micro 10,000 to 50,000 colonies/mL Jia albicans / dubliniensis Jia albicans and INFECTIOUS Jia dubliniensis are not routinely speciated Susc eptibility testing not DISEASE routinely done DIAGNOSTIC (A) LABORATORY Micro Report FINAL 07/07/2016 INFECTIOUS Status DISEASE DIAGNOSTIC LABORATORY Specimen Anatomical Collection Method Collection Time Receive d Time (Source) Location / / Volume Laterality Urine specimen 07/04/2016 4:37 PM 017 4:42 (specimen) CDT PM CDT Mylene Vieira APRN, CNP LAB - MICRO GENERAL ORDERABL ES Performing Organization Address City/State/ZIP Code Phon e Number INFECTIOUS DISEASES [address] [place] [address] DIAGNOSTIC LABORATORY, [place] [address] [place] [address] [address], [facility] INFECTIOUS DISEASE [address] [place] [address], [facility] DIAGNOSTIC LABORATORY HCG Qualitative Urine (UPT) ([facility]) (07/04/2016 4:24 PM CDT) athologist Signature HCG Qual Urine POSITIVE Negative [facility] [facility] Specimen Anatomical Collection Method Collection Time Receive d Time (Source) Location / / Volume Laterality Urine specimen 07/04/2016 4:24 PM 017 4:25 (specimen) CDT PM CDT Mylene Vieira TRAINING ENGINEER LICENSE DISTRIBUTOR LAB - [facility] Performing Organization Address City/State/ZIP Code Phon e Number [facility] [place] [facility] [address] [place], [place] [address] [facility] documented in this encounter Visit Diagnoses Diagnosis test positive - Primary examination or test, positive result Dysuria Anxiety Anxiety state, unspecified Environmental allergies Allergic rhinitis, cause unspecified documented in this encounter Care Teams Billing Checker Relationship Specialty Start Date End Date Keri Elias PCP - General Family Practice 03/12/15 9 MD Ira Glez, Bebeto Hartman MD Orthopedics 07/09/14 [facility] [place] [facility] [facility] [address] [place] [address] Astrid Rios PA-C Physician Musical Performer Physician Musical Performer - 07/09/14 Surgical documented as of this encounter
--- OUTSIDE RECORDS SUMMARY | 2021-12-17 15:10 | XMS_ITS | Encounter Summary ---
:1980 Author Organization [place] Address [facility] [place] [address] Care Team Providers Name Role Phone Meeta Dewittanda Primary Care Provider Reason for Visit Reason Comments Orders Encounter Details Date Type Department Care Team Description 06/04/2014 Orders Only Orthopaedic Clinic Bebeto Roth Scoliosis (Primary Dx); [facility] MD [facility] S[facility]P spinal fusion Center [address] [place] [address] 1[address], [address] [place] [phone] Social History Tobacco Use Types Packs/Day Years Used Date Smoking Tobacco: Passive Smoke Exposure - Never Smoker Smokeless Tobacco: Never Alcohol Use Standard Drinks/Week Comments No 0 (1 standard drink = 0.6 oz pure alcoho l) Sex Assigned at Date Recorded Not on file documented as of this encounter Plan of Treatment Not on filedocumented as of this encounter Results XR Spine Complete 2 vw (06/05/2014 9:32 AM CDT) Anatomical Region Laterality Modality Spine Computed Radiography Specimen (Source) Anatomical Location Collection Method / Collectio n Time Received Time / Laterality Volume Impressions 06/05/2014 5:59 PM CDT Impression: 1. Stable posterior instrumented fusion from T10-L3. 2. Stable mild dextroscoliosis of the lo wer thoracic and upper lumbar spine with normal coronal balance. 3. Stable hyperlordosis of the lumbar sp ine associated with mild sagittal imbalance. I have personally reviewed the examinati on and initial interpretation and I agree with the findings. ALISHA POPE MD Narrative 06/05/2014 5:59 PM CDT Examination: XR SPINE COMPLETE 2 VW, 06/05/2014 9:32 AM Comparison: 01/29/2014 History: Scoliosis (and kyphoscoliosis), idiopathic. Arthrodesis status. Findings: AP and lateral views of the fu ll spine. Stable posterior instrumented fusion of T10-L3 with no ev idence of loosening, hardware fracture or periprosthetic fracture. Sta ble exaggerated lumbar lordosis. Stable mild sagittal imbalance with the cervicothoracic junction lying approximately 6 cm lawn care worker ior to the lumbosacral junction. Stable mild dextroscoliosis of the lower thoracic and upper lumbar spine. The mid occiput is centere d over the sacrum. Procedure Note Alisha Pope MD - 06/05/2014Forma tting of this note might be different from the original. Examination: XR SPINE COMPLETE 2 VW, 05/15 9:32 AM Comparison: 01/29/2014 History: Scoliosis (and kyphoscoliosis), idiopathic. Arthrodesis status. Findings: AP and lateral views of the fu ll spine. Stable posterior instrumented fusion of T10-L3 with no ev idence of loosening, hardware fracture or periprosthetic fracture. Sta ble exaggerated lumbar lordosis. Stable mild sagittal imbalance with the cervicothoracic junction lying approximately 6 cm lawn care worker ior to the lumbosacral junction. Stable mild dextroscoliosis of the lower thoracic and upper lumbar spine. The mid occiput is centere d over the sacrum. IMPRESSION Impression: 1. Stable posterior instrumented fusion from T10-L3. 2. Stable mild dextroscoliosis of the lo wer thoracic and upper lumbar spine with normal coronal balance. 3. Stable hyperlordosis of the lumbar sp ine associated with mild sagittal imbalance. I have personally reviewed the examinati on and initial interpretation and I agree with the findings. ALISHA POPE MD Bebeto Roth MD IMG DIAGNOSTIC IMAGING ORDER TAYLOR documented in this encounter Visit Diagnoses Diagnosis Scoliosis - Primary Scoliosis (and kyphoscoliosis), idiopath ic S/P spinal fusion Arthrodesis status Scoliosis Scoliosis (and kyphoscoliosis), idiopath ic S/P spinal fusion Arthrodesis status documented in this encounter Care Teams Automobile Damage Field Appraiser Relationship Specialty Start Date End Date Lisa Dewitt DO PCP - General 08/12/13 07/15/14 [facility] [address] [place] [address] documented as of this encounter
--- OUTSIDE RECORDS SUMMARY | 2021-12-17 15:10 | XMS_ITS | Encounter Summary ---
:1980 Author Organization [place] Address [address] [facility] [place] [address] Care Team Providers Name Role Phone Lisa Dewitt DO Primary Care Provider Reason for Visit Reason Onset Date Comments Refill Request 09/17/2013 Encounter Details Date Type Department Care Team Description 09/17/2013 Refill [facility] Medicine Lisa Dewitt DO Refill Request Clinic [place] [address] [place] [address], [address] [place] [id number] [place] [phone] Social History Tobacco Use Types Packs/Day Years Used Date Smoking Tobacco: Passive Smoke Exposure - Never Smoker Smokeless Tobacco: Never Alcohol Use Standard Drinks/Week Comments No 0 (1 standard drink = 0.6 oz pure alcoho l) Sex Assigned at Date Recorded Not on file documented as of this encounter Miscellaneous Notes Telephone Encounter - Mikki Ferrari MA - 09/23/2013 8:11 AM CDT error Telephone Encounter - Mikki Ferrari MA - 09/17/2013 8:28 AM CDT Last office visit: 04/04/2013 *Please complete refill and CLOSE ENCOUNTER. Closing the encounter signifies the refill is complete documented in this encounter Plan of Treatment Not on filedocumented as of this encounter Visit Diagnoses Diagnosis Acne vulgaris Other acne documented in this encounter Care Teams Manager Resource Relationship Specialty Start Date End Date Lisa Dewitt DO PCP - General 08/12/13 07/15/14 [facility] [address] [place] [address] documented as of this encounter
--- OUTSIDE RECORDS SUMMARY | 2021-12-17 15:10 | XMS_ITS | Encounter Summary ---
:1980 Author Organization [place] Address [facility] [place] [address] Care Team Providers Name Role Phone Caitlin Ballesteros MD Primary Care Provider Reason for Visit Reason Onset Date Comments Results 12/24/2012 Encounter Details Date Type Department Care Team Description 12/24/2012 Telephone [facility] Jennifer Ballesteros MD Results Clinic [place] [address], [facility] PRACT ICE [address] [place], [place] [address] [place] [address] [phone] (Wo rk) Social History Tobacco Use Types Packs/Day Years Used Date Smoking Tobacco: Passive Smoke Exposure - Never Smoker Smokeless Tobacco: Never Alcohol Use Standard Drinks/Week Comments No 0 (1 standard drink = 0.6 oz pure alcoho l) Sex Assigned at Date Recorded Not on file documented as of this encounter Miscellaneous Notes Telephone Encounter - Madison Nobles LPN - 12/25/2012 11:09 AM GLASS BEAD MAKER Patient seen in clinic 12-24-12. Madison Nobles LPN S BEAD MAKER Telephone Encounter - Terrie Link - 12/24/2012 7:58 AM CST [facility] Family Medicine phone call message- patient requesting results: Test: Lab Date of test: 12/16/2012 Additional Comments: Patient was going to seen Nafisa Starr today in regards to lab results. I did call her since the provider will be out of the office. She rescheduled for today at 1:20pm with Dr. Johnson. Patient would like a phone call in regards to her results and if she really needs to be seen bya provider today. Please call the patient back at the number provided above. Thank you OK to leave a message on voice mail? Yes Primary language: American Rip Machine Operator needed? No Call taken on December 24, 2012 at 7:58 AM by Terrie Link S BEAD MAKER documented in this encounter Plan of Treatment Not on filedocumented as of this encounter Visit Diagnoses Not on filedocumented in this encounter Care Teams Meat Team Member Relationship Specialty Start Date End Date Caitlin Ballesteros MD PCP - General 10/08/11 08/11/13 documented as of this encounter
--- OUTSIDE RECORDS SUMMARY | 2021-12-17 15:10 | XMS_ITS | Encounter Summary ---
:1980 Author Organization [place] Address [facility] [place] [address] Care Team Providers Name Role Phone Caitlin Ballesteros MD Primary Care Provider Reason for Visit Reason Comments Results follow up Encounter Details Date Type Department Care Team Description 12/24/2012 Office Visit [facility] Josiah Johnson Anxiety (Primary Dx) Medicine Clinic [address] [place] [address] Social History Tobacco Use Types Packs/Day Years Used Date Smoking Tobacco: Passive Smoke Exposure - Never Smoker Smokeless Tobacco: Never Alcohol Use Standard Drinks/Week Comments No 0 (1 standard drink = 0.6 oz pure alcoho l) Sex Assigned at Date Recorded Not on file documented as of this encounter Last Filed Vital Signs Vital Sign Reading Time Taken Comments Blood Pressure 128/85 12/24/2012 1:33 PM HITCH TECHNICIAN Pulse 107 12/24/2012 1:33 PM HITCH TECHNICIAN Temperature 36.8 ??C (98.2 ??F) 12/24/2012 1:33 PM HITCH TECHNICIAN Respiratory Rate - - Oxygen Saturation 100% 12/24/2012 1:33 PM HITCH TECHNICIAN Inhaled Oxygen Concentration - - Weight 72.9 kg (160 lb 12.8 oz) 12/24/2012 1:33 PM HITCH TECHNICIAN Height 160.8 cm (5' 3.3) 12/24/2012 1:33 PM HITCH TECHNICIAN Body Mass Index 28.22 12/24/2012 1:33 PM HITCH TECHNICIAN documented in this encounter Patient Instructions Patient InstructionsQuJosiah soto, MD - 12/24/2012 1:59 PM CST Thank you for coming to [facility]. Lab Testing: If you had lab testing today and your results are reassuring or normal they will be mailed to you or sent through Dheere Bolo within 7 days. If the lab tests need quick action we will call you with the results. The phone number we will call with results is # [phone] (home) . If this is not the best numberplease call our clinic and change the number. Medication Refills: If you need any refills please call your pharmacy and they will contact us. If you need to bean picker machine operator your refill at a new pharmacy, please contact the new pharmacy directly. The new pharmacy will help you get your medications transferred faster. Scheduling: If you have any concerns about today's visit or wish to schedule another appointment please call ouroffice during normal business hours [phone] (8- 5:00 M-F) Medical Concerns: If you have urgent medical concerns please call [phone] at any time of the day. If you have a medical emergency please call 911. Again thank you for choosing [facility] and please let us know how we can best partner with you to improve you and your family's health. H TECHNICIAN documented in this encounter Progress Notes Josiah Johnson MD - 12/24/2012 6:02 PM CST HPI Azul Garg is a 32 year old female who presents F/U on HSV result done in ER Pt was told to F/U in clinic. Her HSV 1 IGG was positive and HSV 2 negative. Pt denies any symptoms of genital Herpes. Pt was toldby other Girl that her Ex Partner was Herpes positive but when pt asked Ex partner he denied any H/Oherpes infection. So pt went to ER to get tested for it and provided prescription of Acyclovir that pt never fill up. Pt denies any visible rash or breakout in her Ex partner. Also she is not having any rash or any other symptoms. She felt relax after knowing HSV 2 is negative and understand that 80% of population is positive for HSV 1 related to throat and mouth infection so she is not worried about it. Pt was very anxious about her testing. 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 Denies any other mood changes. Patient Active Problem List Diagnosis ??? Adolescent idiopathic scoliosis ??? Health Residential ??? Acne vulgaris ??? Anxiety ??? Congenital scoliosis ??? Scoliosis ??? Depo-Provera contraceptive status ??? Dermatofibroma of left thigh Current Outpatient Prescriptions Medication Status Sig ??? hydrOXYzine (ATARAX) 25 MG tablet Active Take 1-2 tablets (25-50 mg) by mouth every 6 hours as needed for itching ??? acyclovir (ZOVIRAX) 400 MG tablet Active Take 1 tablet (400 mg) by mouth 3 times daily ??? levonorgestrel-ethinyl estradiol (SEASONALE) 0.15-0.03 MG per tablet Active Take 1 tablet by mouth daily ??? minocycline (DYNACIN) 100 MG tablet Active Take 1 tablet (100 mg) by mouth daily ??? fluticasone (FLONASE) 50 MCG/ACT nasal spray Active [place] 1-2 sprays into both nostrils daily ??? benzoyl peroxide 5 % gel Active Use over the areas everyday 1-2 times/daily. Please use it alongwith other ointment. ??? fluticasone (FLONASE) 50 MCG/ACT nasal spray Active [place] 2 sprays into both nostrils daily. Allergies Allergen Reactions ??? Seasonal Allergies No results found for this or any previous visit (from the past 24 hour(s)). Review of Systems: CONSTITUTIONAL: no fatigue, no unexpected change in weight SKIN: no worrisome rashes, no worrisome moles, no worrisome lesions : no frequency, no dysuria, no hematuria PSYCHIATRIC: NEGATIVE for changes in mood or affect Physical Exam: Filed Vitals: 12/24/12 1333 BP: 128/85 Pulse: 107 Temp: 98.2 ??F (36.8 ??C) TempSrc: Tympanic Height: 5' 3.3 (160.8 cm) Weight: 160 lb 12.8 oz (72.938 kg) SpO2: 100% Body mass index is 28.21 kg/(m^2). GENERAL: healthy, alert, well nourished, well hydrated, no distress RESP: lungs clear to auscultation - no rales, no rhonchi, no wheezes ABDOMEN: soft, no tenderness, no hepatosplenomegaly, no masses, normal bowel sounds PSYCH: Alert and oriented times 3; speech- coherent , normal rate and volume; able to articulate logical thoughts, able to abstract reason, no tangential thoughts, no hallucinations or delusions, affect- normal Admission on 12/16/2012, Discharged on 12/16/2012 Component Date Value Range Status ??? Specimen Description 12/16/2012 Cervix Final ??? Wet Prep 12/16/2012 Final Value:Many PMNs seen No clue cells seen No Trichomonas seen No yeast seen ??? Micro Report Status 12/16/2012 FINAL 12/16/2012 Final ??? Specimen Descrip 12/16/2012 Cervix Final ??? N Gonorrhea PCR 12/16/2012 Final Value:Negative for N. gonorrhoeae rRNA by director franchise sales mediated amplification. A negative result by director franchise sales mediated amplification does not preclude the presence of N. gonorrhoeae infection because results are dependent on proper and adequate collection, absence of inhibitors, and sufficient rRNA to be detected. ??? Specimen Description 12/16/2012 Cervix Final ??? Chlamydia Trachomatis PCR 12/16/2012 Final Value:Negative for C. trachomatis rRNA by director franchise sales mediated amplification. A negative result by director franchise sales mediated amplification does not preclude the presence of C. trachomatis infection because results are dependent on proper and adequate collection, absence of inhibitors, and sufficient rRNA to be detected. ??? Color Urine 12/16/2012 Yellow Final ??? Appearance Urine 12/16/2012 Slightly Cloudy Final ??? Glucose Urine 12/16/2012 Negative NEG mg/dL Final ??? Bilirubin Urine 12/16/2012 Negative NEG Final ??? Ketones Urine 12/16/2012 Negative NEG mg/dL Final ??? Specific [place] Urine 12/16/2012 1.023 1.003 - 1.035 Final ??? Blood Urine 12/16/2012 Small* NEG Final ??? pH Urine 12/16/2012 5.5 5.0 - 7.0 pH Final ??? Protein Albumin Urine 12/16/2012 10* NEG mg/dL Final ??? Urobilinogen mg/dL 12/16/2012 Normal 0.0 - 2.0 mg/dL Final ??? Nitrite Urine 12/16/2012 Negative NEG Final ??? Leukocyte Esterase Urine 12/16/2012 Moderate* NEG Final ??? Source 12/16/2012 Midstream Urine Final ??? RBC Urine 12/16/2012 5* 0 - 2 /HPF Final ??? WBC Urine 12/16/2012 9* 0 - 2 /HPF Final ??? Bacteria Urine 12/16/2012 Few* NEG /HPF Final ??? Squamous Epithelial /HPF Urine 12/16/2012 4* 0 - 1 /HPF Final ??? Mucous Urine 12/16/2012 Present* NEG /LPF Final ??? HCG Qual Urine 12/16/2012 negative neg Final ??? Internal QC OK 12/16/2012 Yes Final ??? HSV IgG Antibody W/Reflex 12/16/2012 5.27 Final Positive ??? Herpes Simplex Virus IgM Antibody 12/16/2012 0.43 Final No detectable antibody. ??? HSV 1 IgG [place] 12/16/2012 24.90 Final Positive, suggests immunologic exposure. ??? HSV 2 IgG [place] 12/16/2012 0.06 Final Comment: No detectable antibody. This type specific antibody assay is different from total HSV antibody assay. The two may be discrepant 5-10% of the time. Assessment and Plan 1. Anxiety; pt was having anxiety related to her HSV testing. HSAHNAZ 7 scored 5. - hydrOXYzine (ATARAX) 25 MG tablet; Take 1-2 tablets (25-50 mg) by mouth every 6 hours as needed for itching Dispense: 30 tablet; Refill: 1 Return to follow up symptoms of anxiety gets worst. pt feels better after knowing result. Her anxiety seems situational, not starting her on shelter treatment like SSRI. 2. Herpes Type 1 positive IgG: with out any evidence of infection currently . Likely she developed immunity in her childhood from Herpes exposure rather than sexually transmitted. No need of treatment Also pt is not Sexually active with Ex partner( no evidence of Herpes Infection in partner per pt was informed by other girl about him) Pt comes back if develops any skin vesicular lesion. Options for treatment and follow-up care were reviewed with the patient . Azul Garg engaged in the decision making process and verbalized understanding of the options discussed and agreed with the final plan. Josiah Johnson MD H TECHNICIAN Jazz Duncan MD - 12/24/2012 1:41 PM CST Preceptor Attestation: Patient's case reviewed and discussed with resident and I examined the patient. I agree with writtenassessment and plan of care Supervising Physician: Jazz Duncan MD MD [facility] Medicine H TECHNICIAN documented in this encounter Plan of Treatment Not on filedocumented as of this encounter Visit Diagnoses Diagnosis Anxiety - Primary Anxiety state, unspecified documented in this encounter Care Teams Lead Informatica Developer Relationship Specialty Start Date End Date Caitlin Ballesteros MD PCP - General 10/08/11 08/11/13 documented as of this encounter
--- OUTSIDE RECORDS SUMMARY | 2021-12-17 15:10 | XMS_ITS | Encounter Summary ---
:1980 Author Organization [place] Address [facility] [place] [address] Care Team Providers Name Role Phone Lisa Dewitt DO Primary Care Provider Reason for Visit Reason Onset Date Comments Medication Question 01/21/2014 Encounter Details Date Type Department Care Team Description 01/21/2014 Telephone [facility] Lisa Dewitt DO Medication Question Clinic [address] [id number] [phone] (Wo rk) Social History Tobacco Use Types Packs/Day Years Used Date Smoking Tobacco: Passive Smoke Exposure - Never Smoker Smokeless Tobacco: Never Alcohol Use Standard Drinks/Week Comments No 0 (1 standard drink = 0.6 oz pure alcoho l) Sex Assigned at Date Recorded Not on file documented as of this encounter Miscellaneous Notes Telephone Encounter - Bunny Patino RN - 01/21/2014 10:06 AM CST Rx for permethrin sent per protocol. Patient notified. Bunny Patino RN CY LEGAL COUNSEL Telephone Encounter - Hillary Brumfield - 01/21/2014 9:46 AM CST [facility] Family Medicine phone call message- medication clarification/question: Full Medication Name: Headlice Medication Dose: Question: Patient is calling stating she saw headlice on her daughter, and she is concerned that herself and her children may now have it. She does not want to come in and spread the headlice, so she is requesting a prescription for herself and each of her children. Pharmacy confirmed as [facility] [address] [place], [place] - [address] AT [address]: Yes OK to leave a message on voice mail? Yes Primary language: Moroccan Study Coordinator needed? No Call taken on January 21, 2014 at 9:47 AM by Hillary Brumfield CY LEGAL COUNSEL documented in this encounter Plan of Treatment Not on filedocumented as of this encounter Visit Diagnoses Diagnosis Head lice Pediculus capitis (head louse) documented in this encounter Care Teams Chief Of Pediatric Urology Relationship Specialty Start Date End Date Lisa Dewitt DO PCP - General 08/12/13 07/15/14 [facility] 2019 [place] [address] documented as of this encounter
--- OUTSIDE RECORDS SUMMARY | 2021-12-17 15:10 | XMS_ITS | Encounter Summary ---
:1980 Author Organization [place] Address [address] [facility] [place] [address] Care Team Providers Name Role Phone Renate Lisa Primary Care Provider Reason for Visit Reason Comments Orders Encounter Details Date Type Department Care Team Description 01/28/2014 Orders Only [facility] Astrid Rios, Damon (Primary [facility] PA-C Dx) [facility] 1st Floor, [address] [place] [address], [phone] [place] [id number] Social History Tobacco Use Types Packs/Day Years [...] encounter Results XR Spine Complete 2 vw (01/29/2014 8:26 AM SPECIAL INVESTIGATOR) Anatomical Region Laterality Modality Spine Computed Radiography Specimen (Source) Anatomical Location Collection Method / Collectio n Time Received Time / Laterality Volume Impressions 01/29/2014 8:54 AM SPECIAL INVESTIGATOR IMPRESSION: 1. Redemonstration of mild dextroscolios is in the lower thoracic spine, with intact instrumentation follo wing posterior instrumented fusion from T10-L3. BABS MONTES MD Narrative 01/29/2014 8:54 AM SPECIAL INVESTIGATOR EXAMINATION: Spine 2 views DATE: 01/29/2014 HISTORY: Scoliosis; back pain FINDINGS: Frontal and lateral standing v iews of the spine are compared to 03/03/2010. Again identified is mild d extroscoliosis centered in the lower thoracic spine centered at approxi mately the T10-11 vertebral level. Posterior instrumented fusion has been performed from T10-L3. The cervicothoracic junction shifted pos teriorly relative to the lumbosacral junction. There is a hyperlo rdosis of the lumbar spine. The instrumentation is maintained intact . Patient is skeletally immature. Procedure Note Babs Montes MD - 01/29/2014Forma tting of this note might be different from the original. EXAMINATION: Spine 2 views DATE: 01/29/2014 HISTORY: Scoliosis; back pain FINDINGS: Frontal and lateral standing v iews of the spine are compared to 03/03/2010. Again identified is mild d extroscoliosis centered in the lower thoracic spine centered at approxi mately the T10-11 vertebral level. Posterior instrumented fusion has been performed from T10-L3. The cervicothoracic junction shifted pos teriorly relative to the lumbosacral junction. There is a hyperlo rdosis of the lumbar spine. The instrumentation is maintained intact . Patient is skeletally immature. IMPRESSION IMPRESSION: 1. Redemonstration of mild dextroscolios is in the lower thoracic spine, with intact instrumentation follo wing posterior instrumented fusion from T10-L3. BABS MONTES MD Astrid Rios PA-C [facility] DI[facility]NOSTIC [facility]ING ORDER TAYLOR documented in this encounter Visit Diagnoses Diagnosis Scoliosis - Primary Scoliosis (and kyphoscoliosis), idiopath ic Scoliosis Scoliosis (and kyphoscoliosis), idiopath ic documented in this encounter Care Teams Hat Cutter Relationship Specialty Start Date End Date Lisa Dewitt DO PCP - General 08/12/13 07/15/14 [facility] [address] [place] [address] documented as of this encounter
--- OUTSIDE RECORDS SUMMARY | 2021-12-17 15:10 | XMS_ITS | Encounter Summary ---
:1980 Author Organization [place] Address [address] [facility] [place] [address] Care Team Providers Name Role Phone Caitlin Ballesteros MD Primary Care Provider Reason for Visit Reason Comments Torticollis seen 1 week ago for neck sti ffness, given meds, not getting any better Encounter Details Date Type Department Care Team Description 03/07/2013 Emergency [facility] Rona Perez, initial Emergency Department MD Nan encounter (Primary Dx) [address] [place] [phone] Social History Tobacco Use Types Packs/Day Years Used Date Smoking Tobacco: Passive Smoke Exposure - Never Smoker Smokeless Tobacco: Never Alcohol Use Standard Drinks/Week Comments No 0 (1 standard drink = 0.6 oz pure alcoho l) Sex Assigned at Date Recorded Not on file documented as of this encounter Last Filed Vital Signs Vital Sign Reading Time Taken Comments Blood Pressure 126/84 03/07/2013 11:50 AM OPERATING ROOM NURSE Pulse 88 03/07/2013 11:50 AM OPERATING ROOM NURSE Temperature 36.5 ??C (97.7 ??F) 03/07/2013 10:49 AM OPERATING ROOM NURSE Respiratory Rate 16 03/07/2013 11:50 AM OPERATING ROOM NURSE Oxygen Saturation 98% 03/07/2013 10:49 AM OPERATING ROOM NURSE Inhaled Oxygen Concentration - - Weight - - Height - - Body Mass Index - - documented in this encounter Discharge Instructions AttachmentsThe following attachments cannot be sent through Care Everywhere.NECK SPASM, NO TRAUMA (CANADIAN)documented in this encounter Medications at Time of Discharge Medication Sig Dispensed Refills Start Date End Date cyclobenzaprine (FLEXERIL) Take 1 tablet (10 20 tablet 0 03/13/2013 10 MG tablet mg) by mouth 3 times daily as needed for muscle spasms benzoyl peroxide 5 % Use over the areas 45 g 3 012 01/29/2014 gelIndications: Acne everyday 1-2 vulgaris times/daily. Please use it along with other ointment. cyclobenzaprine (FLEXERIL) Take 1 tablet (5 10 tablet 0 07/02/2013 5 MG tabletIndications: mg) by mouth 3 Neck muscle spasm times daily as needed for muscle spasms fluticasone (FLONASE) 50 [place] 1-2 sprays 1 Package 11 11/1308/28/2013 MCG/ACT nasal into both nostrils sprayIndications: daily Environmental allergies ibuprofen (ADVIL,MOTRIN) Take one pill three 24 tablet 0 07/02/2013 600 MG tablet times daily with food or milk for 5-7 days ibuprofen (ADVIL,MOTRIN) Take 1 tablet (600 30 tablet 1 07/04/2016 600 MG tabletIndications: mg) by mouth every Neck muscle spasm 8 hours as needed for pain LORazepam (ATIVAN) 0.5 MG Take 1 tablet (0.5 10 tablet 0 01/29/2014 tabletIndications: mg) by mouth every Anxiety, Panic attack 8 hours as needed for anxiety Menthol, Topical Apply over the 1 Tube 0 02/28/201306/14 Analgesic, (BENGAY PAIN affected area RELIEF + MASSAGE) 2.5 % GELIndications: Neck muscle spasm minocycline (DYNACIN) 100 Take 1 tablet (100 30 tablet 0 09/17/2013 MG tabletIndications: Acne mg) by mouth daily vulgaris norgestim-eth estrad Take 1 tablet by 28 tablet 3 3 07/04/2016 triphasic (ORTHO mouth daily TRI-CYCLEN, 28,) 0.18/0.215/0.25 MG-35 MCG TABS tabletIndications: Contraception documented as of this encounter ED Notes Nan Perez MD - 03/07/2013 10:57 AM CST Images from the original note were not included. [place] [facility] 16 on March 07, 2013 at 11:00 AM History Chief Complaint Patient presents with ??? Torticollis seen 1 week ago for neck stiffness, given meds, not getting any better The history is provided by the patient and medical records. Azul Garg is a 32 year old female who presents with neck stiffness. She states last week she developed neck pain and stiffness with limited range of motion last week. She states it was the first time it ever happened so she went to her primary care doctor, was prescribed flexeril and motrin. This improved over the course of a couple ofdays. Yesterday while doing yoga, she felt as if her left shoulder was dislocated and she felt an odd popping sensation. She did yoga exercises for round shoulder exercises and some light shoulder massages with some relief. When she woke this morning she noticed left sided neck pain, left shoulder pain and limited range of motion in her neck. When she tries to look to her right she develops severe pain to her neck and shoulder. No radiation of pain into her elbow or hands. She notes history of spinal fusion in her low spine for scoliosis. She also notes history of TMJ problems and had massages for this which cleared her ear blockages but does not think this is related. Patient then notes that her baby has been sick with RSV and refusing to sleep without being held at night. She states that for the past 2 weeks she has been sleeping while cradling her baby in her leftarm. I have reviewed the Medications, Allergies, Past Medical and Surgical History, and Social History inthe waygum system. PAST MEDICAL HISTORY: Past Medical History Diagnosis Date ??? Abnormal Pap smear in past- normal since then ??? Anemia with ??? Complication of anesthesia PAST SURGICAL HISTORY: Past Surgical History Procedure Date ??? C spinal fusion,ant,ea adnl level 2010 FAMILY HISTORY: No family history on file. SOCIAL HISTORY: History Substance Use Topics ??? Smoking status: Passive Smoke Exposure - Never Smoker ??? Smokeless tobacco: Never Used ??? Alcohol Use: No Patient's Medications New Prescriptions CYCLOBENZAPRINE (FLEXERIL) 10 MG TABLET Take 1 tablet (10 mg) by mouth 3 times daily as needed for muscle spasms IBUPROFEN (ADVIL,MOTRIN) 600 MG TABLET Take one pill three times daily with food or milk for 5-7 days Previous Medications BENZOYL PEROXIDE 5 % GEL Use over the areas everyday 1-2 times/daily. Please use it along with other ointment. CYCLOBENZAPRINE (FLEXERIL) 5 MG TABLET Take 1 tablet (5 mg) by mouth 3 times daily as needed for muscle spasms FLUTICASONE (FLONASE) 50 MCG/ACT NASAL SPRAY [place] 1-2 sprays into both nostrils daily IBUPROFEN (ADVIL,MOTRIN) 600 MG TABLET Take 1 tablet (600 mg) by mouth every 8 hours as needed for pain LORAZEPAM (ATIVAN) 0.5 MG TABLET Take 1 tablet (0.5 mg) by mouth every 8 hours as needed for anxiety MENTHOL, TOPICAL ANALGESIC, (BENGAY PAIN RELIEF + MASSAGE) 2.5 % GEL Apply over the affected area MINOCYCLINE (DYNACIN) 100 MG TABLET Take 1 tablet (100 mg) by mouth daily NORGESTIM-ETH ESTRAD TRIPHASIC (ORTHO TRI-CYCLEN, 28,) 0.18/0.215/0.25 MG-35 MCG TABS TABLET Take 1tablet by mouth daily Modified Medications No medications on file Discontinued Medications SERTRALINE (ZOLOFT) 25 MG TABLET Take 1 tablet (25 mg) by mouth daily Allergies Allergen Reactions ??? Seasonal Allergies Review of Systems Constitutional: Negative for fever. HENT: Positive for neck pain and neck stiffness. Eyes: Negative for visual disturbance. Respiratory: Negative for shortness of breath. Cardiovascular: Negative for chest pain. Gastrointestinal: Negative for abdominal pain. Musculoskeletal: Left shoulder pain Skin: Negative for color change and rash. Neurological: Negative for dizziness, weakness, numbness and headaches. All other systems reviewed and are negative. Physical Exam BP: 129/95 mmHg Pulse: 112 Temp: 97.7 ??F (36.5 ??C) Resp: 14 SpO2: 98 % Physical Exam Constitutional: She is oriented to person, place, and time. She appears well- developed and well-nourished. No distress. Patient pleasant, cooperative, no acute distress. HENT: Head: Atraumatic. Mouth/Throat: Oropharynx is clear and moist. No oropharyngeal exudate. Eyes: Conjunctivae normal are normal. Pupils are equal, round, and reactive to light. No scleral icterus. Neck: No JVD present. No tracheal deviation present. No thyromegaly present. Passive rom is good and only causes minimal pain with turning to the right. There is some left posterior spasm and pain with active turning . No pain with flexion. No bony point tenderness. Cardiovascular: Normal heart sounds and intact distal pulses. Pulmonary/Chest: Breath sounds normal. No stridor. No respiratory distress. Abdominal: Soft. Bowel sounds are normal. There is no tenderness. Musculoskeletal: Normal range of motion. She exhibits no edema and no tenderness. Left shoulder has FROM . No point tenderness or crepitus. No ac pain . Upper extremities have from, good strength in all major mm groups and normal reflexes. Lymphadenopathy: She has no cervical adenopathy. Neurological: She is alert and oriented to person, place, and time. She displays normal reflexes. Nocranial nerve deficit or sensory deficit. She exhibits normal muscle tone. Coordination normal. GCS eye subscore is 4. GCS verbal subscore is 5. GCS motor subscore is 6. Reflex Scores: Brachioradialis reflexes are 1+ on the right side and 1+ on the left side. Patellar reflexes are 2+ on the right side and 2+ on the left side. Achilles reflexes are 2+ on the right side and 2+ on the left side. Skin: Skin is warm. No rash noted. She is not diaphoretic. ED Course Procedures Patient assessed in [place] ED 16 on March 07, 2013 at 11:00 AM. Assessments & Plan (with Medical Decision Making) Cervical strain - likely exacerbated by holding daughter. She improved greatly after one day of flexeril and motrin, but stopped immediately. i think she to continue her anti-inflammatories and since that Flexeril makes her quite sleepy I think she can just take that at night. I also recommended that she use ice 15- 20 minutes 3 times per day. There is no evidence of nerve impingement or significant shoulder pathology. She was advised that if she does not improve by 5 days, she should talk with her doctor for further evaluation of possible physical therapy referral. If she develops weakness, numbness, or radiation of pain down her arm below the elbow she needs to return to the emergency department for further evaluation and possible imaging. I have reviewed the findings, diagnosis, plan and need for follow up with the patient. New Prescriptions CYCLOBENZAPRINE (FLEXERIL) 10 MG TABLET Take 1 tablet (10 mg) by mouth 3 times daily as needed for muscle spasms IBUPROFEN (ADVIL,MOTRIN) 600 MG TABLET Take one pill three times daily with food or milk for 5-7 days Final diagnoses: Cervical strain, initial encounter IApril, am serving as a trained medical observer to document services personally performedby Nan Perez MD, based on the provider's statements to me. Inan, was physically present and have reviewed and verified the accuracy of this notedocumented by April Porter, medical observer. 03/07/2013 [facility] [place], EMERGENCY DEPARTMENT Nan Perez MD 03/07/13 1140 ATING ROOM NURSE documented in this encounter Plan of Treatment Not on filedocumented as of this encounter Visit Diagnoses Diagnosis Cervical strain, initial encounter - Emerald cotter documented in this encounter Care Teams Credit Review Officer Relationship Specialty Start Date End Date Caitlin Ballesteros MD PCP - General 10/08/11 08/11/13 documented as of this encounter
--- OUTSIDE RECORDS SUMMARY | 2021-12-17 15:10 | XMS_ITS | Encounter Summary ---
:1980 Author Organization [place] Address [facility] [place] [address] Care Team Providers Name Role Phone Lisa Dewitt DO Primary Care Provider Reason for Referral [facility] - Closed Specialty Diagnoses / Procedures Referred By Contact Refer red To Contact Diagnoses Scoliosis/kyphoscoliosis Bebeto Roth MD [facility] [place], [place] [address] Referral ID Status Reason Start Date Expiration Date Visits Requ ested Visits Authorized [id number] Closed 06/05/2014 12/02/2014 1 1 Reason for Visit Reason Comments Surgical Followup s/p spinal fusion 09/3009, pt . states she is noticing some curve changes Encounter Details Date Type Department Care Team Description 06/05/2014 Office Visit [facility] Bebeto Roth Scoliosis/kyphoscolio [facility] (Primary Dx) [facility] [address], [address] [phone] Social History Tobacco Use Types Packs/Day Years [...] - Inhaled Oxygen Concentration - - Weight 69.9 kg (154 lb) 06/05/2014 9:26 AM CDT Height 158.8 cm (5' 2.5) 06/05/2014 9:26 AM CDT Body Mass Index 27.72 06/05/2014 9:26 AM CDT documented in this encounter Progress Notes Bebeto Roth MD - 06/05/2014 9:52 AM CDT HISTORY OF PRESENT ILLNESS: Azul returns to the clinic today over concerns of thinking that she is having increasing thoracic kyphosis. Azul is status post a T10-L3 posterior instrumented fusion by Dr. Roth on 10/12/2009, for kyphoscoliosis. She has not had any increasing pain. 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 She is curious as to whether she can do anything to prevent a progression of her kyphosis. Today, EQ-5D is 80. PROMIS 10 score is 26. Azul's last visit with our PA, Astrid Teixeira, was in January. Her x-rays were noted to have some slight progression as compared to 2010. She has a known loosened set plug at the top of her construct that has not changed over time. Today AP and lateral standing films were obtained specifically measuring the kyphotic angle from T9 through T11 which is across the proximal junctional segment to the second most instrumented segment. This measures 28 degrees on 03/03/2010, 31 degrees on 01/29/2014, and 34 degrees on 06/05/2014. The in traobserver differences for x-ray measurements varies approximately 5 degrees. This is not a large but is without inside of the realm of a small change management lead the past 4 years. However, without progressive pain and neurologic symptoms, which Azul does not currently have, the change is not overly concerning. PHYSICAL EXAMINATION: Her strength is 5/5 in bilateral lower extremities with intact sensation. Reflexes are 2+ patellar and Achilles. Gait is normal. Tandem gait is normal. ASSESSMENT: Azul is a 33-year-old female who is 4-1/2 years status post a T10- L3 posterior instrumented spinal fusion for scoliosis with kyphosis. 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 Again, recognizing that measurementvariability is 5 degrees, this is not necessarily a large change. Azul is not having clinical symptomatology of proximal junctional failure. She has not had any changes in her instrumentation with no evidence of screw loosening or pull out. PLAN: Dr. Rtoh discussed with her that physical therapy would be the first step to an engage in scapular thoracic strengthening for posture control. He also gave Azul a brochure on the Kyle technique, and this can be maximally focused intervention to help with her posture. She will have to decide whether she wants to pursue this. She is welcome to return to clinic at any time with further concerns that develop. I would be happy to see her at any time. Otherwise, will evaluate her again in 1 year's time with standing scoliosis films. I saw and evaluated the patient on the day of the visit and I formulated the plan. Bebeto Roth MD documented in this encounter Nursing Notes Mercy Juárez LPN - 06/05/2014 9:30 AM CDT Reason For Visit: Chief Complaint Patient presents with ??? Surgical Followup s/p spinal fusion 09/3009, pt. states she is noticing some curve changes Primary: none Ref. 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 Date of injury: none Date of surgery: 10/12/09 Type of surgery: PSF. Smoker: No Ht 1.588 m (5' 2.5) Wt 69.854 kg (154 lb) BMI 27.70 kg/m2 Pain Assessment Patient Currently in Pain: Yes 0-10 Pain Scale: (0 - 5) Primary Pain Location: Back Pain Descriptors: Aching Alleviating Factors: Other (comment) (doesn't do anything) Aggravating Factors: Other (comment) (seems random) MOBILITY: (1) I have no problems walking SELF-CARE: (1) I have no problems washing or dressing myself USUAL ACTIVITIES (e.g. work, study, housework, family or leisure activities): (1) I have no problemsdoing my usual activities PAIN / DISCOMFORT: (2) I have slight pain or discomfort ANXIETY / DEPRESSION: (4) I am severely anxious or depressed We would like to know how good or bad your health is TODAY (0-100; 100 means the best health you canimagine; 0 means the worst health you can imagine): 80 PROMIS-10 In general, would you say your health is:: Fair In general, would you say your quality of life is:: Good In general, how would you rate your physical health?: Good In general, how would you rate your mental health, including your mood and your ability to think?: Good In general, how would you rate your satisfaction with your social activities and relationships?: Very good In general, please rate how well you carry out your usual social activities and roles. (This includes activities at home, at work and in your community, and responsibilities as a parent, child, spouse,employee, friend, etc.): Excellent To what extent are you able to carry out your everyday physical activities such as walking, climbingstairs, carrying groceries, or moving a chair?: Mostly In the past 7 days, how often have you been bothered by emotional problems such as feeling anxious, depressed, or irritable?: Often In the past 7 days, how would you rate your fatigue on average?: Mild In the past 7 days, how would you rate your pain on average, where 0 means no pain, and 10 means worst imaginable pain?: 4 Global Mental Health Score: 12 Global Physical Health Score: 14 PROMIS TOTAL - SUBSCORES: 26 documented in this encounter Plan of Treatment Scheduled Referrals Name Type Priority Associated Diagnoses Order S [facility] PHYSICAL THERAPY Referral Routine Scoliosis/kyphoscoliosis Expected: 06/05/2014, REFERRAL Expires: 2015 (External-Prints) documented as of this encounter Visit Diagnoses Diagnosis Scoliosis/kyphoscoliosis - Primary Scoliosis (and kyphoscoliosis), idiopath ic documented in this encounter Care Teams Cutlery Grinder Relationship Specialty Start Date End Date Lisa Dewitt DO PCP - General 08/12/13 07/15/14 [facility] [address] [place] [address] documented as of this encounter
--- OUTSIDE RECORDS SUMMARY | 2021-12-17 15:10 | XMS_ITS | Encounter Summary ---
:1980 Author Organization [place] Address [facility] [place] [address] Care Team Providers Name Role Phone Lisa Dewitt DO Primary Care Provider Reason for Visit Reason Onset Date Comments Refill Request 12/31/2013 Encounter Details Date Type Department Care Team Description 12/31/2013 Telephone [facility] Lisa Dewitt DO Refill Request Clinic [place] [address], [address] [place] [address] [place], [place] [address] [phone] Social History Tobacco Use Types Packs/Day Years Used Date Smoking Tobacco: Passive Smoke Exposure - Never Smoker Smokeless Tobacco: Never Alcohol Use Standard Drinks/Week Comments No 0 (1 standard drink = 0.6 oz pure alcoho l) Sex Assigned at Date Recorded Not on file documented as of this encounter Miscellaneous Notes Telephone Encounter - Bunny Patino RN - 12/31/2013 11:58 AM CST Rx changed from tablets to capsules and sent to pharmacy. Called patient and left message to inform her. Asked her to call back with any questions. Bunny Patino RN ONCOLOGY RESEARCH Telephone Encounter - Hillary Brumfield - 12/31/2013 11:39 AM CST [facility] phone call message- patient requesting a refill: Full Medication Name: minocycline (DYNACIN) 100 MG Capsule Pharmacy confirmed as [facility] [id number] [place], [place] - [address] [address] [phone] : Yes Additional Comments: Patient states her insurance does not cover the Tablets, she needs the prescription to read Capsule. OK to leave a message on voice mail? Yes Primary language: Citizen Of [place] Junior Network Engineer needed? No Call taken on December 31, 2013 at 11:39 AM by Hillary Brumfield ONCOLOGY RESEARCH documented in this encounter Plan of Treatment Not on filedocumented as of this encounter Visit Diagnoses Diagnosis Acne vulgaris Other acne documented in this encounter Care Teams Caddymaster Relationship Specialty Start Date End Date Lisa Dewitt DO PCP - General 08/12/13 07/15/14 [facility] [address] [place] [address] documented as of this encounter
--- OUTSIDE RECORDS SUMMARY | 2021-12-17 15:10 | XMS_ITS | Encounter Summary ---
:1980 Author Organization [place] Address [address] [facility] [place] [address] Care Team Providers Name Role Phone Caitlin Ballesteros MD Primary Care Provider Reason for Visit Reason Onset Date Comments Pre Visit Planning - Done 06/26/2013 Encounter Details Date Type Department Care Team Description 06/26/2013 PRE VISIT Ear, Nose and Throat Gael Deshpande MD Pre Visit Planning - Clinic ENT CLIN[facility] AND Done 8th Floor, Clinic [address] [facility] [address] [address] [facility] [place] [address] Social History Tobacco Use Types Packs/Day Years Used Date Smoking Tobacco: Passive Smoke Exposure - Never Smoker Smokeless Tobacco: Never Alcohol Use Standard Drinks/Week Comments No 0 (1 standard drink = 0.6 oz pure alcoho l) Sex Assigned at Date Recorded Not on file documented as of this encounter Miscellaneous Notes Telephone Encounter - Raffi Fabi - 06/26/2013 7:32 AM CDT ENT PRE VISIT NOTE On the phone call: Date of Call: June 26, 2013 Date of appointment: July 04, 2013 Reason for Call (Should match scheduling appointment note): Right ear pressure with dizziness Who made the initial call: (patient, Parent (Name of Parent), referral source) Patient Who is the Referring Provider? (Name, address, phone number, location of clinic) Self Where have you been seen for this condition? [facility] Where and what testing has been done including: None ENT related surgeries in the past: No After the phone call: Request medical records: No From where: What date: Who did you speak to: Is the information already in the EMR? Yes Inform pt in case of any questions call Fabi at [phone]. documented in this encounter Plan of Treatment Not on filedocumented as of this encounter Visit Diagnoses Not on filedocumented in this encounter Care Teams Drug Safety Data Management Specialist Relationship Specialty Start Date End Date Caitlin Ballesteros MD PCP - General 10/08/11 08/11/13 documented as of this encounter
--- OUTSIDE RECORDS SUMMARY | 2021-12-17 15:10 | XMS_ITS | Encounter Summary ---
:1980 Author Organization [place] Address [address] [facility] [place] [address] Care Team Providers Name Role Phone Bebeto Roth MD Unavailable Astrid Rios PA-C Unavailable [facility] Primary Care Provider + Reason for Visit [facility] (Routine) - Closed Specialty Diagnoses / Procedures Referred By Contact Refer red To Contact Bebeto Roth MD [facility] [address] [place] [address] [address] [place], [place] [phone] [place] [phone] Phone: Fax: Referral ID Status Reason Start Date Expiration Date Visits Requ ested Visits Authorized [facility]/HP/LBP Closed 08/04/2014 02/12/2015 20 18 Encounter Details Date Type Department Care Team Description 08/04/2014 Therapy Visit [facility] for Evan Alejandra, Pain in thoracic spine (Primary Dx); Athletic Medicine - PT Other orthopedic aftercare(V54.89); Manjula Costa [facility] Scoliosis PhysicalTherapy [address] [place] [address] [address] [place] [phone] Social History Tobacco Use Types Packs/Day Years Used Date Smoking Tobacco: Never Smokeless Tobacco: Never Alcohol Use Standard Drinks/Week Comments No 0 (1 standard drink = 0.6 oz pure alcoho l) Sex Assigned at Date Recorded Not on file documented as of this encounter Progress Notes Margarette Ibarra - 08/08/2014 11:23 AM CDT Subjective: Other surgeries include: Orthopedic surgery. Primary job tasks include: Prolonged sitting. Oswestry Score: 17.78 % Objective: System Physical Exam General ROS Assessment/Plan: Evan Alejandra, DILIA - 08/04/2014 6:16 PM CDT Subjective: Azul Garg is a 33 year old female with a thoracic and lumbar condition. Condition occurred with: Insidious onset. S/p fusion from T10-L3 10/12/2009. Patient reports pain: Mid thoracic spine. Pain is described as aching and is intermittent and reported as 3/10. Pain is the same all the time. Symptoms are exacerbated by sitting (trying to maintain appropriate posture) and relieved by rest. Pain course: since surgery it is gradually improving. Previous treatment includes surgery. There was significant improvement following previous treatment. General health as reported by patient is good. Objective: Standing Alignment: Cervical/Thoracic: Thoracic kyphosis increased Shoulder/UE: Rounded shoulders Flexibility/Screens: Positive screens: ThoracicNegative screens: Cervical or Lumbar Upper Extremity: Decreased left upper extremity flexibility at: Pectoralis Major and Pectoralis Minor Decreased right upper extremity flexibility present at: Pectoralis Major and Pectoralis Minor Lumbar/SI Evaluation ROM: AROM Lumbar: Flexion: 75% Ext: 75% Side Bend: Left: 100% Right: 50% Rotation: Left: Right: Side [place]: Left: Right: Strength: sore strength = 4/5, cuing required to activate TA Cervical/Thoracic Evaluation Cervical AROM: normal AROM: AROM Thoracic: Flexion: WNL Extension: 25% Rotation: Left: 75% Right: 50% Strength: 3+/5 in periscaular muscles bilaterally Cervical Myotomes: normal DTR's: normal Cervical Palpation: Tenderness present at Left: Erector Spinae Tenderness not present at Left: Scalenes; Upper Trap or Levator Tenderness present at Right: Erector Spinae Tenderness not present at Right: Scalenes; Upper Trap or Levator General ROS Assessment/Plan: Patient is a 33 year old female with thoracic complaints. Patient has the following significant findings with corresponding treatment plan. Diagnosis 1: S/p thoracolumbar fusion, upper thoracic pain Pain - hot/cold therapy Decreased ROM/flexibility - manual therapy, therapeutic exercise, therapeutic activity and home program Decreased strength - therapeutic exercise and therapeutic activities Impaired muscle performance - neuro re-education Decreased function - therapeutic activities Impaired posture - neuro re-education Previous and current functional limitations: (See Goal Flow Sheet for this information) Short term and USP goals: (See Goal Flow Sheet for this information) Communication ability: Patient appears to be able to clearly communicate and understand verbal and written communication and follow directions correctly. Treatment Explanation - The following has been discussed with the patient: RX ordered/plan of care Anticipated outcomes Possible risks and side effects This patient would benefit from PT intervention to resume normal activities. Rehab potential is good. Frequency: 1 X week, once daily Duration: for 8 weeks Discharge Plan: Achieve all LTG. Independent in home treatment program. Reach maximal therapeutic benefit. Please refer to the daily flowsheet for treatment today, total treatment time and time spent performing 1:1 timed codes. documented in this encounter Plan of Treatment Not on filedocumented as of this encounter Procedures Procedure Name Priority Date/Time Associated Diagnosis Comme nts [facility] NEUROMUSCULAR Routine 08/07/2014 12:10 PM Pain in thoracic RE-EDUCATION CDT spine Other orthopedic aftercare(V54.89 ) Scoliosis [facility] THERAPEUTIC EXERCISES Routine 08/07/2014 12:10 PM Pain in thoracic CDT spine Other orthopedic aftercare(V54.89 ) Scoliosis documented in this encounter Visit Diagnoses Diagnosis Pain in thoracic spine - Primary Other orthopedic aftercare(V54.89) Other orthopedic aftercare Scoliosis Scoliosis (and kyphoscoliosis), idiopath ic documented in this encounter Care Teams Senior Oracle Soa Developer Relationship Specialty Start Date End Date Clinic - Angela Laboy PCP - General 07/16/[address] [place] [address] [place], [place] [phone] Bebeto Roth MD Orthopedics 07/09/14 [facility] [place], [place] [id number] [place] [address] Astrid Rios PA-C Physician Roast Master Physician Roast Master - 07/09/14 Surgical documented as of this encounter
--- OUTSIDE RECORDS SUMMARY | 2021-12-17 15:10 | XMS_ITS | Encounter Summary ---
:1980 Author Organization [place] Address [facility] [place] [address] Care Team Providers Name Role Phone Lisa Dewitt DO Primary Care Provider Reason for Visit Reason Onset Date Comments Other 01/28/2014 scoliosis FU Encounter Details Date Type Department Care Team Description 01/28/2014 Telephone Orthopaedic Clinic Bebeto Roth (scoliosis FU) [facility] MD [facility] [address] [place] [address] Floor, [address] [facility] [address] [phone] [phone] Social History Tobacco Use Types Packs/Day Years Used Date Smoking Tobacco: Passive Smoke Exposure - Never Smoker Smokeless Tobacco: Never Alcohol Use Standard Drinks/Week Comments No 0 (1 standard drink = 0.6 oz pure alcoho l) Sex Assigned at Date Recorded Not on file documented as of this encounter Miscellaneous Notes Telephone Encounter - Cindy Harris RN - 01/28/2014 3:32 PM CST Patient had scoliosis surg. [place] [address] Roth. She is feeling her hardware be more prominent and has a clicking sensation in her back. She will see Astrid snyder tomorrow for eval. DELIVERY VEHICLE OFFICER documented in this encounter Plan of Treatment Not on filedocumented as of this encounter Visit Diagnoses Not on filedocumented in this encounter Care Teams Bridge Inspector Relationship Specialty Start Date End Date Lisa Dewitt DO PCP - General 08/12/13 07/15/14 [facility] 2019 [place] [address] documented as of this encounter
--- OUTSIDE RECORDS SUMMARY | 2021-12-17 15:10 | XMS_ITS | Encounter Summary ---
:1980 Author Organization [place] Address [facility] [place] [address] Care Team Providers Name Role Phone Caitlin Ballesteros MD Primary Care Provider Reason for Visit Reason Comments Medication Problem contraception Encounter Details Date Type Department Care Team Description 01/14/2013 Office Visit [facility] Josiah Johnson, Lora ption (Primary Dx); Medicine Clinic MD Najera [address] [place] [address] [address] [place], [place] [address] 2019 [place] [address] Social History Tobacco Use Types Packs/Day Years Used Date Smoking Tobacco: Passive Smoke Exposure - Never Smoker Smokeless Tobacco: Never Alcohol Use Standard Drinks/Week Comments No 0 (1 standard drink = 0.6 oz pure alcoho l) Sex Assigned at Date Recorded Not on file documented as of this encounter Last Filed Vital Signs Vital Sign Reading Time Taken Comments Blood Pressure 116/80 01/14/2013 3:59 PM SOCIAL WORK MANAGER Pulse 95 01/14/2013 3:59 PM SOCIAL WORK MANAGER Temperature 36.4 ??C (97.5 ??F) 01/14/2013 3:59 PM SOCIAL WORK MANAGER Respiratory Rate - - Oxygen Saturation 98% 01/14/2013 3:59 PM SOCIAL WORK MANAGER Inhaled Oxygen Concentration - - Weight 72.1 kg (159 lb) 01/14/2013 3:59 PM SOCIAL WORK MANAGER Height 160 cm (5' 3) 01/14/2013 3:59 PM SOCIAL WORK MANAGER Body Mass Index 28.17 01/14/2013 3:59 PM SOCIAL WORK MANAGER documented in this encounter Progress Notes Keri Elias MD - 01/14/2013 4:35 PM CST Preceptor Attestation: Patient's case reviewed and discussed with resident and I examined the patient. I agree with writtenassessment and plan of care Supervising Physician: Keri Elias MD [facility] AL WORK MANAGER Josiah Johnson MD - 01/14/2013 4:23 PM CST HPI Azul Garg is a 32 year old female who presents for the new concern(s) of: vaginal bleeding for 3 weeks changes pads daily feels more than spotting associated with cramping. Pt started OCp 2 months ago on the second pack started noticing bleeding. Pt denies vaginal Withdrawal bleeding. Pt did not notice any withdrawal bleeding after first pack but continued to have bleeding with second pack. She did not miss her pills earlier but missed yesterday. Taking pills in time. In the past used one time Depo shot after shot 3 months later she had Vaginal bleeding. No concern of discharge last sex 1 month ago. No nausea, no vomiting. Patient Active Problem List Diagnosis ??? Adolescent idiopathic scoliosis ??? Health [facility] ??? Acne vulgaris ??? Anxiety ??? Congenital scoliosis ??? Scoliosis ??? Depo-Provera contraceptive status ??? Dermatofibroma of left thigh Current Outpatient Prescriptions Medication Status Sig ??? LORazepam (ATIVAN) 0.5 MG tablet Active Take 1 tablet (0.5 mg) by mouth every 8 hours as needed for anxiety ??? sertraline (ZOLOFT) 25 MG tablet Active Take 1 tablet (25 mg) by mouth daily ??? levonorgestrel-ethinyl estradiol (SEASONALE) 0.15-0.03 MG per tablet Active Take 1 tablet by mouth daily ??? minocycline (DYNACIN) 100 MG tablet Active Take 1 tablet (100 mg) by mouth daily ??? fluticasone (FLONASE) 50 MCG/ACT nasal spray Active [place] 1-2 sprays into both nostrils daily ??? benzoyl peroxide 5 % gel Active Use over the areas everyday 1-2 times/daily. Please use it alongwith other ointment. Allergies Allergen Reactions ??? Seasonal Allergies No results found for this or any previous visit (from the past 24 hour(s)). Review of Systems: CONSTITUTIONAL: no fatigue, no unexpected change in weight SKIN: no worrisome rashes, no worrisome moles, no worrisome lesions CV: no chest pain, no palpitations, no new or worsening peripheral edema GI: no nausea, no vomiting, no constipation, no diarrhea Physical Exam: Filed Vitals: 01/14/13 1559 BP: 116/80 Pulse: 95 Temp: 97.5 ??F (36.4 ??C) TempSrc: Oral Height: 5' 3 (160 cm) Weight: 159 lb (72.122 kg) SpO2: 98% Body mass index is 28.17 kg/(m^2). GENERAL: healthy, alert, well nourished, well hydrated, no distress RESP: lungs clear to auscultation - no rales, no rhonchi, no wheezes CV: regular rates and rhythm, normal S1 S2, no S3 or S4 and no murmur, no click or rub - SKIN: no suspicious lesions, no rashes Assessment and Plan Contraception (primary encounter diagnosis): switched to tricyclic pills to help with irregular spotting. Comment: Plan: norgestim-eth estrad triphasic (ORTHO TRI-CYCLEN, 28,) 0.18/0.215/0.25 MG-35 MCG TABS tablet Medications Discontinued During This Encounter Medication Reason ??? levonorgestrel-ethinyl estradiol (SEASONALE) 0.15-0.03 MG per tablet Options for treatment and follow-up care were reviewed with the patient . Azul Garg engaged in the decision making process and verbalized understanding of the options discussed and agreed with the final plan. Josiah Johnson MD AL WORK MANAGER documented in this encounter Plan of Treatment Not on filedocumented as of this encounter Visit Diagnoses Diagnosis Contraception - Primary Unspecified contraceptive management Metrorrhagia documented in this encounter Care Teams Mental Health Advanced Practice Nurse Relationship Specialty Start Date End Date Caitlin Ballesteros MD PCP - General 10/08/11 08/11/13 documented as of this encounter
--- OUTSIDE RECORDS SUMMARY | 2021-12-17 15:10 | XMS_ITS | Encounter Summary ---
:1980 Author Organization [place] Address [address] [place] [address] Care Team Providers Name Role Phone Lisa Dewitt DO Primary Care Provider Reason for Visit Reason Onset Date Comments *-*INCOMING RECORDS*-* 01/28/2014 Encounter Details Date Type Department Care Team Description 01/28/2014 PRE VISIT Orthopaedic Clinic Astrid Rios, *-*INCOMING RECORDS*-* [facility] PA-C [facility] 1st Floor, [address] ORTHOPEDICS [address] [place] [address], [phone] [place] [id number] Social History Tobacco Use Types Packs/Day Years Used Date Smoking Tobacco: Passive Smoke Exposure - Never Smoker Smokeless Tobacco: Never Alcohol Use Standard Drinks/Week Comments No 0 (1 standard drink = 0.6 oz pure alcoho l) Sex Assigned at Date Recorded Not on file documented as of this encounter Miscellaneous Notes Telephone Encounter - Curtis Regan - 01/28/2014 4:[address] Roth patient; records and imaging in [facility] ENGINEER documented in this encounter Plan of Treatment Not on filedocumented as of this encounter Visit Diagnoses Not on filedocumented in this encounter Care Teams Carriage Dogger Relationship Specialty Start Date End Date Lisa Dewitt DO PCP - General 08/12/13 07/15/14 [facility] 2019 [place] [address] documented as of this encounter
--- OUTSIDE RECORDS SUMMARY | 2021-12-17 15:10 | XMS_ITS | Encounter Summary ---
:1980 Author Organization [place] Address [address] [place] [address] Care Team Providers Name Role Phone Caitlin Ballesteros MD Primary Care Provider Reason for Visit Reason Comments Diarrhea since Monday/ per pt- happ en after workout Syncope during working out Chills Encounter Details Date Type Department Care Team Description 04/04/2013 Office Visit [facility] Caitlin Ballesteros MD Contraception (Primary Medicine Clinic [facility]) [address], PRACTICE [address] [place] [address] [place] [phone] (Wo rk) Social History Tobacco Use Types [...] Reading Time Taken Comments Blood Pressure 117/79 04/04/2013 1:37 PM ACCOUNTING MACHINE OPERATOR Pulse 93 04/04/2013 1:37 PM ACCOUNTING MACHINE OPERATOR Temperature 36.4 ??C (97.6 ??F) 04/04/2013 1:37 PM ACCOUNTING MACHINE OPERATOR Respiratory Rate - - Oxygen Saturation 100% 04/04/2013 1:37 PM ACCOUNTING MACHINE OPERATOR Inhaled Oxygen Concentration - - Weight 70.1 kg (154 lb 9.6 oz) 04/04/2013 1:37 PM ACCOUNTING MACHINE OPERATOR Height 158.8 cm (5' 2.5) 04/04/2013 1:37 PM ACCOUNTING MACHINE OPERATOR Body Mass Index 27.83 04/04/2013 1:37 PM ACCOUNTING MACHINE OPERATOR documented in this encounter Progress Notes Caitlin Ballesteros MD - 04/04/2013 5:09 PM CST HPI Azul Garg is a 32 year old female who presents for the new concern(s) of: Dizziness: Was jogging on the treadmill 6 days ago when she suddenly felt lightheaded and was not walking straight. She sat down for a few minutes and eventually felt well enough to finish her workout.It was her first time ever working out and she was not sure how hard to push herself. Denies vertigo, palpitations, chest pain or headaches. Her anxiety has not been very well- controlled recently, which she says might have contributed. Reports she has only been drinking about 20 oz water per day. Has not had any episodes since then, but has been feeling a little nauseous. Diarrhea: After the episode mentioned above she felt nauseous, but when she went to the bathroom shehad watery diarrhea. Since then she has had watery bowel movements 2x/day. A few days ago she started taking Pepto Bismol and noticed the stools are still loose, but not as watery. No fevers or hematochezia, one episode of chills. Has not tried any new foods lately. No change in appetite. Would like to know if diarrhea is related to exercise. 2 yr old daughter has been sick with URI 1 week back afterwhich she herself had some cold symptoms. Otherwise feels fine. Patient Active Problem List Diagnosis ??? Adolescent idiopathic scoliosis ??? Health [facility] ??? Acne vulgaris ??? Anxiety ??? Congenital scoliosis ??? Scoliosis ??? Dermatofibroma of left thigh Current Outpatient Prescriptions Medication Sig ??? levonorgestrel-ethinyl estradiol (SEASONALE) 0.15-0.03 MG per tablet Take 1 tablet by mouth daily ??? ibuprofen (ADVIL,MOTRIN) 600 MG tablet Take one pill three times daily with food or milk for 5-7days ??? cyclobenzaprine (FLEXERIL) 5 MG tablet Take 1 tablet (5 mg) by mouth 3 times daily as needed formuscle spasms ??? Menthol, Topical Analgesic, (BENGAY PAIN RELIEF + MASSAGE) 2.5 % GEL Apply over the affected area ??? ibuprofen (ADVIL,MOTRIN) 600 MG tablet Take 1 tablet (600 mg) by mouth every 8 hours as needed for pain ??? norgestim-eth estrad triphasic (ORTHO TRI-CYCLEN, 28,) 0.18/0.215/0.25 MG-35 MCG TABS tablet Take 1 tablet by mouth daily ??? LORazepam (ATIVAN) 0.5 MG tablet Take 1 tablet (0.5 mg) by mouth every 8 hours as needed for anxiety ??? minocycline (DYNACIN) 100 MG tablet Take 1 tablet (100 mg) by mouth daily ??? fluticasone (FLONASE) 50 MCG/ACT nasal spray [place] 1-2 sprays into both nostrils daily ??? benzoyl peroxide 5 % gel Use over the areas everyday 1-2 times/daily. Please use it along with other ointment. Allergies Allergen Reactions ??? Seasonal Allergies No results found for this or any previous visit (from the past 24 hour(s)). Review of Systems: CONSTITUTIONAL: + fatigue, no unexpected change in weight CV: no chest pain, no palpitations GI: + nausea, no vomiting, no constipation, + diarrhea, + cramping abdominal pain : no frequency, no dysuria, no hematuria Physical Exam: Filed Vitals: 04/04/13 1337 BP: 117/79 Pulse: 93 Temp: 97.6 ??F (36.4 ??C) TempSrc: Oral Height: 5' 2.5 (158.8 cm) Weight: 154 lb 9.6 oz (70.126 kg) SpO2: 100% Body mass index is 27.81 kg/(m^2). Vitals were reviewed and were normal GENERAL: healthy, alert and no distress EYES: Eyes grossly normal to inspection, extraocular movements - intact MS: extremities- no gross deformities noted, no edema Abdomen: soft, non-tender, non-distended. Assessment and Plan Diagnoses and associated orders for this visit: Dizziness: - most likely viral syndrome with URI symptoms a week back and now with GI symptoms. Likely pushed herself too hard during her first workout. Advised to take a break until GI symptoms resolve and then slowly begin exercise regimen. Encouraged to drink plenty of water and keep herself hydrated. Diarrhea: most likely 2/2 viral Gastroenteritis No evidence of bacterial infection at this point. Semi-formed stool twice/day, getting better. - Continue probiotics OTC and yogurt and avoid milk for the next few days. - plenty of fluids to keep herself hydrated. - RTC in one week if symptoms do not improve. Anxiety: Schedule follow-up to address anxiety if she feels its not controlled. - Will discuss use of Ativan at that time. Contraception - Refilled levonorgestrel-ethinyl estradiol (SEASONALE) 0.15-0.03 MG per tablet; Take 1 tablet by mouth daily. Refills for 1 yr given. There are no discontinued medications. Options for treatment and follow-up care were reviewed with the patient . Azul Alejo Younglisa Britany engaged in the decision making process and verbalized understanding of the options discussed and agreed with the final plan. IPeggy am acting as scribe for Dr. Caitlin Ballesteros MD. Peggy Siu, MS3 The medical student acted as scribe and the encounter documented above was completely performed by myself and the documentation reflects the work I have performed today. Caitlin Ballesteros MD. UNTING MACHINE OPERATOR Joseph Pittman MD - 04/04/2013 4:35 PM CST Preceptor Attestation: Patient seen and discussed with the resident. Assessment and plan reviewed with resident and agreedupon. Supervising Physician: Joseph Pittman MD [facility] UNTING MACHINE OPERATOR documented in this encounter Plan of Treatment Not on filedocumented as of this encounter Visit Diagnoses Diagnosis Contraception - Primary Unspecified contraceptive management documented in this encounter Care Teams Machine Molder Squeeze Relationship Specialty Start Date End Date Caitlin Ballesteros MD PCP - General 10/08/11 08/11/13 documented as of this encounter
--- OUTSIDE RECORDS SUMMARY | 2021-12-17 15:10 | XMS_ITS | Encounter Summary ---
:1980 Author Organization [place] Address [address] [place] [address] Care Team Providers Name Role Phone Caitlin Ballesteros MD Primary Care Provider Reason for Visit Reason Comments Neck Pain patient could not move neck to the left after waking up today. History of TMJ. Encounter Details Date Type Department Care Team Description 02/28/2013 Office Visit [facility] Caitlin Ballesteros MD Neck muscle spasm Medicine Clinic [facility] (Primary Dx) [address] [place] [address], PRACT[address] [place] [address] [place] [address] [phone] (Wo rk) Social History Tobacco Use Types [...] Reading Time Taken Comments Blood Pressure 122/81 02/28/2013 3:00 PM STITCHER STANDARD MACHINE Pulse 94 02/28/2013 3:00 PM STITCHER STANDARD MACHINE Temperature 36.8 ??C (98.2 ??F) 02/28/2013 3:00 PM STITCHER STANDARD MACHINE Respiratory Rate - - Oxygen Saturation 100% 02/28/2013 3:00 PM STITCHER STANDARD MACHINE Inhaled Oxygen Concentration - - Weight 70.3 kg (155 lb) 02/28/2013 3:00 PM STITCHER STANDARD MACHINE Height 158.8 cm (5' 2.5) 02/28/2013 3:00 PM STITCHER STANDARD MACHINE Body Mass Index 27.9 02/28/2013 3:00 PM STITCHER STANDARD MACHINE documented in this encounter Patient Instructions Patient InstructionsCaitlin Ballesteros MD - 02/28/2013 3:33 PM CST Thank you for coming to [facility]. If you had lab testing today and your results are reassuring or normal they will be be mailed to you or sent to your MyChart and you will be notified by email within 7 days. If the lab tests need quick action we will call you with the results. The phone number we will call with results is # [phone] (home) (home) . If this is not the best number please call our clinic and change the number. If any referrals were ordered today you should be getting a call in the next week. If you don't hear about this within a week please call one of the following numbers If your referral is for P please call [phone] If your referral is to outside [facility] please call the clinic number ([phone]) and ask for your team medicare sales representative. If you need any refills please call your pharmacy and they will contact us. If you have any concerns about today's visit or wish to schedule another appointment please call ouroffice during normal business hours [phone] (8- 5:00 M-F) If you have urgent medical concerns please call [phone] at any time of the day. If you have a medical emergency please call [phone] Again thank you for choosing [facility] and please let us know how we can best partner with youto improve your and your family's health. CHER STANDARD MACHINE documented in this encounter Progress Notes Joseph Pittman MD - 02/28/2013 5:28 PM CST Preceptor Attestation: Patient seen and discussed with the resident. Assessment and plan reviewed with resident and agreedupon. Supervising Physician: Joseph Pittman MD [facility] Medicine CHER STANDARD MACHINE Caitlin Ballesteros MD - 02/28/2013 3:15 PM CST HPI Azul Garg is a 32 year old female who presents for: Neck Pain: Pt is here for neck pain since last night. She has h/o TMJ, recently looked up online about massaging the jaw which she has been doing the night before which helped to relieve her clogged ears. Last night she has been doing massaging of her jaw again after which she felt a spasm in her neckand had difficulty in moving her head. This morning the pain persisted, she is able to move her head, although associated with discomfort. But she states that the discomfort is getting better through the day. Tried applying some heating pad which helped her a bit. No other concerns today. Patient Active Problem List Diagnosis ??? Adolescent idiopathic scoliosis ??? Health Jail ??? Acne vulgaris ??? Anxiety ??? Congenital scoliosis ??? Scoliosis ??? Depo-Provera contraceptive status ??? Dermatofibroma of left thigh Current Outpatient Prescriptions Medication Sig ??? cyclobenzaprine (FLEXERIL) 5 MG tablet Take [...] anxiety ??? sertraline (ZOLOFT) 25 MG tablet Take 1 tablet (25 mg) by mouth daily ??? minocycline (DYNACIN) 100 MG tablet Take 1 tablet (100 mg) by mouth daily ??? fluticasone (FLONASE) 50 MCG/ACT nasal spray [place] 1-2 sprays into both nostrils daily ??? [...] rashes, no worrisome moles, no worrisome lesions EYES: no acute vision problems or changes ENT: no ear problems, no mouth problems, no throat problems RESP: no significant cough, no shortness of breath CV: no chest pain, no palpitations, no new or worsening peripheral edema GI: no nausea, no vomiting, no constipation, no diarrhea Physical Exam: Filed Vitals: 02/28/13 1500 BP: 122/81 Pulse: 94 Temp: 98.2 ??F (36.8 ??C) TempSrc: Oral Height: 5' 2.5 (158.8 cm) Weight: 155 lb (70.308 kg) SpO2: 100% Body mass index is 27.88 kg/(m^2). GENERAL: healthy, alert, well nourished, well hydrated, no distress HENT: ear canals- normal; TMs- normal; Nose- normal; Mouth- no ulcers, no lesions. Clicking sensation felt on jaw movement. NECK: tenderness over the left posterior neck, knot felt over the area, ROM to the left restricted due to discomfort. But otherwise able to move. RESP: lungs clear to auscultation - no rales, no rhonchi, no wheezes CV: regular rates and rhythm, normal S1 S2, no S3 or S4 and no murmur, no click or rub - Assessment and Plan 728.85 Neck muscle spasm (primary encounter diagnosis) Comment: discussed that the pain is most likely due to muscle spasm of the neck. The fact that it isgetting better and massaging felt good, points to the muscular origin of the pain. Plan: would try cyclobenzaprine (FLEXERIL) 5 MG tablet - cautioned against driving after taking it. To take at night and then during day if needed. Menthol, Topical Analgesic, (BENGAY PAIN RELIEF + MASSAGE) 2.5 % GEL, ibuprofen (ADVIL,MOTRIN) 600 MG tablet - to try applying heat for about 20 mins TID specially since it helped her today. - if not better, then to RTC. Options for treatment and follow-up care were reviewed with the patient . Azul Garg engaged in the decision making process and verbalized understanding of the options discussed and agreed with the final plan. Caitlin Ballesteros MD. CHER STANDARD MACHINE documented in this encounter Plan of Treatment Not on filedocumented as of this encounter Visit Diagnoses Diagnosis Neck muscle spasm - Primary Spasm of muscle documented in this encounter Care Teams Pyrometallurgical Engineer Relationship Specialty Start Date End Date Caitlin Ballseteros MD PCP - General 10/08/11 08/11/13 documented as of this encounter
--- OUTSIDE RECORDS SUMMARY | 2021-12-17 15:10 | XMS_ITS | Encounter Summary ---
:1980 Author Organization [place] Address [address] [facility] [place] [address] Care Team Providers Name Role Phone Caitlin Ballesteros MD Primary Care Provider Encounter Details Date Type Department Care Team Description 07/02/2013 Office Visit [facility] Michael Deshpande MD ENT CLINIC AND [facility]ING CTR [address] [facility] [address] [address] Audiology Zahira Hernandez AuD [address] [place], [place] [id number] 6 [facility] [address]th Floor cl inic 8B [facility] [place], [place] [phone] Social History Tobacco Use Types Packs/Day Years Used Date Smoking Tobacco: Passive Smoke Exposure - Never Smoker Smokeless Tobacco: Never Alcohol Use Standard Drinks/Week Comments No 0 (1 standard drink = 0.6 oz pure alcoho l) Sex Assigned at Date Recorded Not on file documented as of this encounter Progress Notes Zahira Tellez AuD - 07/02/2013 4:20 PM CDT AUDIOLOGY REPORT SUMMARY: Audiology visit completed. See audiogram for results. RECOMMENDATIONS: Follow-up with ENT. Tommy Salcedo [employer] Techn[employer] [place] #[id number] documented in this encounter Plan of Treatment Not on filedocumented as of this encounter Procedures Procedure Name Priority Date/Time Associated Diagnosis Comme nts AUDIOGRAM/ABR/OAE/TYPM 07/02/2013 12:00 AM CDT - HIM SCAN documented in this encounter Results AUDIOGRAM/ABR/OAE/TYPM - HIM SCAN (07/02/2013 12:00 AM CDT) Specimen (Source) Anatomical Location Collection Method / Collectio n Time Received Time / Laterality Volume 07/02/2013 Narrative This result has an attachment that is no t available. Provider Scan PROCEDURES documented in this encounter Visit Diagnoses Not on filedocumented in this encounter Care Teams Cosmetician Relationship Specialty Start Date End Date Caitlin Ballesteros MD PCP - General 10/08/11 08/11/13 documented as of this encounter
--- OUTSIDE RECORDS SUMMARY | 2021-12-17 15:10 | XMS_ITS | Encounter Summary ---
:1980 Author Organization [place] Address [address] [facility] [place] [address] Care Team Providers Name Role Phone Bebeto Roth MD Unavailable Astrid Rios PA-C Unavailable Keri Elias MD Primary Care Provider Unavailable Reason for Visit Reason Comments Sinus Problem Refill Request minocycline (MINOCIN,DYNACIN ) 100 MG capsule Encounter Details Date Type Department Care Team Description 03/12/2015 Office Visit [facility] Harleen Elias vulgari s (Primary Dx); Medicine Clinic Keri Glez MD Environmental allergies; [address], Anxiety ; [address] Panic attack [place] [address] Social History Tobacco Use Types Packs/Day Years Used Date Smoking Tobacco: Never Smokeless Tobacco: Never Alcohol Use Standard Drinks/Week Comments No 0 (1 standard drink = 0.6 oz pure alcoho l) Sex Assigned at Date Recorded Not on file documented as of this encounter Last Filed Vital Signs Vital Sign Reading Time Taken Comments Blood Pressure 115/78 03/12/2015 10:03 AM CERTIFIED PHLEBOTOMY TECHNICIAN Pulse 109 03/12/2015 10:03 AM CERTIFIED PHLEBOTOMY TECHNICIAN Temperature 36.6 ??C (97.9 ??F) 03/12/2015 10:03 AM CERTIFIED PHLEBOTOMY TECHNICIAN Respiratory Rate - - Oxygen Saturation 99% 03/12/2015 10:03 AM CERTIFIED PHLEBOTOMY TECHNICIAN Inhaled Oxygen Concentration - - Weight 71.4 kg (157 lb 6.4 oz) 03/12/2015 10:03 AM CERTIFIED PHLEBOTOMY TECHNICIAN Height - - Body Mass Index 27.44 07/16/2014 9:41 AM CDT documented in this encounter Progress Notes Keri Elias MD - 03/12/2015 1:17 PM CST SUBJECTIVE: The patient is here primarily to get refills. She has had a change of insurance. She hadcome here in the past, then last year had a different insurance, so was going elsewhere. Now, insurance has changed again, so she is back again. She uses minocycline p.r.n. for her cystic acne and she feels like that is going well. She has homeopathic nasal drops called Sinus Buster. She had been on Flonase before prescribed by ENT that had been working well but she stopped taking it. Recently, has had some sensation like her sinuses are getting clogged again, especially on the right side and so thought maybe she should start that up again. So, wanted a refill of that prescription. Then, she says wilfredo arenas also has some anxiety and uses Ativan sparingly and would like a refill of that. We discussed somewhat the issues with controlled drugs and prescriptions for that. The last prescription she had gotten from here was 10 tablets. She said she had a more recent one of 30 tablets last fall which lasted her she said quite a few months. She was okay with my offer to write for just 10 tablets now. OBJECTIVE: On exam, the patient is in no acute distress. Vital signs are stable. TMs are normal. Shedoes have some boggy nasal mucosa on the right, the left is clear. No real sinus tenderness to palpation. Pharynx is unremarkable. No cervical adenopathy. Her skin, could see some signs of old cystic acne. IMPRESSION: Patient re-establishing care with some chronic medical problems, basically stable, needing refills at this point. PLAN: Meds refilled as mentioned above. Visit length 25 minutes, all spent counseling directly [id number] about medications. IFIED PHLEBOTOMY TECHNICIAN documented in this encounter Plan of Treatment Not on filedocumented as of this encounter Visit Diagnoses Diagnosis Acne vulgaris - Primary Other acne Environmental allergies Allergic rhinitis, cause unspecified Anxiety Anxiety state, unspecified Panic attack Panic disorder without agoraphobia documented in this encounter Care Teams Willow Analyst Relationship Specialty Start Date End Date Keri Elias PCP - General Family Practice 1/28/16 10/1/1 9 MD Ira Glez David Wayne, MD Orthopedics 07/09/[address] [place] [id number] Astrid Rios PA-C Physician Physical Chemist Physician Physical Chemist - 07/09/14 Surgical documented as of this encounter
--- OUTSIDE RECORDS SUMMARY | 2021-12-17 15:10 | XMS_ITS | Encounter Summary ---
:1980 Author Organization [place] Address [address] [facility] [place] [address] Care Team Providers Name Role Phone Lisa Dewitt DO Primary Care Provider Reason for Visit Reason Onset Date Comments Refill Request 11/11/2013 Encounter Details Date Type Department Care Team Description 11/11/2013 Refill [facility] Lisa Dewitt DO Refill Request [place] [address], [address] [place] [address] [place], [place] [address] [phone] Social History Tobacco Use Types Packs/Day Years Used Date Smoking Tobacco: Passive Smoke Exposure - Never Smoker Smokeless Tobacco: Never Alcohol Use Standard Drinks/Week Comments No 0 (1 standard drink = 0.6 oz pure alcoho l) Sex Assigned at Date Recorded Not on file documented as of this encounter Miscellaneous Notes Telephone Encounter - Nickie Pizarro CMA - 11/11/2013 12:49 PM CDT Date of last visit at clinic: 04/04/2013 Please complete refill and CLOSE ENCOUNTER. Closing the encounter signifies the refill is complete. documented in this encounter Plan of Treatment Not on filedocumented as of this encounter Visit Diagnoses Diagnosis Acne vulgaris Other acne documented in this encounter Care Teams Special Needs Teacher Relationship Specialty Start Date End Date Lisa Dewitt DO PCP - General 08/12/13 07/15/[address] [place] [address] documented as of this encounter
--- OUTSIDE RECORDS SUMMARY | 2021-12-17 15:10 | XMS_ITS | Encounter Summary ---
:1980 Author Organization [place] Address [address] [facility] [place] [address] Care Team Providers Name Role Phone Caitlin Ballesteros MD Primary Care Provider Reason for Visit Reason Comments Consult Ear issues and Dizziness Encounter Details Date Type Department Care Team Description 07/02/2013 Office Visit [facility] Th[facility] Gael Deshpande MD Nasal congestion (Primary Dx); Clinic ENT CLINIC AND Dysfunction of eustachian tu be, bilateral 8th Floor, Clinic 8A HEARING CTR [facility] [address] [address] [facility] [phone] [place], [place] (Work) [address] [phone] Social History Tobacco Use Types Packs/Day Years Used Date Smoking Tobacco: Passive Smoke Exposure - Never Smoker Smokeless Tobacco: Never Alcohol Use Standard Drinks/Week Comments No 0 (1 standard drink = 0.6 oz pure alcoho l) Sex Assigned at Date Recorded Not on file documented as of this encounter Patient Instructions Patient InstructionsAzul Bhandari RN - 07/02/2013 1:53 PM CDT 1. Patient to use Flonase as directed. 2. Patient to follow up in the ENT clinic as needed. 3. Patient to call the clinic sooner with questions or concerns: [phone]. documented in this encounter Progress Notes Michael Deshpande MD - 07/02/2013 2:01 PM CDT Dear Caitlin Alexandra: I had the pleasure of meeting Azul Garg in consultation today at the [facility] at your request. HISTORY OF PRESENT ILLNESS: The patient is a 32-year-old in today for assessment of her ears. She has had a plugged full feeling in the ears, mostly on the right, for a couple of months. She says she has never been on an airplane, but it feels like that and like when she used to go up and down mountains while riding in a car when she was younger. She also has some pressure in the face. The right ear will crackle at times. She is not really aware of any hearing loss. She has not had any vertigo. She says she does have some mild unsteadiness. She describes it more as a lightheadedness. When she gets that she will take Ativan that she has and is to use that as needed for anxiety. That will always seem to help that. She has been on some Claritin. She has had some Flonase, but has never used it regularly. There has been no actual pain in the ears and no drainage. She is not aware of having a lot of allergies. There is no dysphagia, hoarseness, facial paresthesias. She has been told she has TMJ in the past and wonders if that could be related. ALLERGIES: Allergies Allergen Reactions ??? Seasonal Allergies HABITS: Alcohol Use: No History Smoking status ??? Passive Smoke Exposure - Never Smoker Smokeless tobacco ??? Never Used PAST MEDICAL HISTORY: Please see today's intake form (for the remainder of the [facility]) which I reviewedand signed. Past Medical History Diagnosis Date ??? Abnormal Pap smear in past- normal since then ??? Anemia with ??? Complication of anesthesia FAMILY HISTORY/SOCIAL HISTORY: Family History Problem Relation Age of Onset ??? Family History Negative History Social History ??? Marital Status: Single Spouse Name: N/A Number of Children: N/A ??? Years of Education: N/A Occupational History ??? Not on file. Social History Main Topics ??? Smoking status: Passive Smoke Exposure - Never Smoker ??? Smokeless tobacco: Never Used ??? Alcohol Use: No ??? Drug Use: No ??? Sexually Active: Yes Other Topics Concern ??? Not on file Social History Narrative REVIEW OF SYSTEMS: Please see today's intake form (for the remainder of the ROS) which I have reviewed and signed. PHYSICIAL EXAMINATION: Constitutional: The patient was well-groomed and in no acute distress. Skin: Warm and pink. Psychiatric: The patient's affect was calm, cooperative, and appropriate. Respiratory: Breathing comfortably without stridor or exertion of accessory muscles. Eyes: Pupils were equal and reactive. Extraocular movement intact. Head: Normocephalic and atraumatic. No lesions or scars. Ears: Both ears are examined. I did place her supine under the microscope with finding some cerumen and for cleaning. The right side was cleaned using high powered magnification and curettes. Followingcleaning, the tympanic membrane has good position, good color. Middle ear looks to be air filled. Specifically, I do not see any fluid, no worrisome retraction of the tympanic membrane. The canal has normal appearance. The opposite side was also cleaned and inspected using similar techniques and the microscope. Following cleaning, again the tympanic membrane, middle ear, canal all look normal. Nose: Sinuses were nontender. Anterior rhinoscopy revealed midline septum and absence of purulence or polyps. Oral Cavity: Normal tongue, floor of moth, buccal mucosa, and palate. No lesions or masses on inspection or palpation. No abnormal lymph tissue in the oropharynx. Neck: The parotid is soft without masses. Supple with normal laryngeal and tracheal landmarks. Lymphatic: There is no palpable lymphadenopathy or other masses in the neck. Neurologic: Alert and oriented x 3. Cranial nerves III-XI within normal limits. Voice quality normal. Cerebellar Function Tests: Grossly normal TMJ: The TMJ palpation with opening and closing does show a pretty significant sliding and popping in the joint, both sides, especially on the right. She has noticed some tenderness with that. AUDIOGRAM: The audiogram performed today shows completely normal hearing through all frequencies at about 0-5 dB level. She has excellent discrimination at 100% in each ear. Ear popper: The patient placed a swallow of water in her mouth and held it. The ear popper was used to build pressure in the left nostril and a seal was created with finger pressure to the right side. She took a swallow of water and did notice a Valsalva on both sides with clearing of symptoms initially. IMPRESSION AND PLAN: I talked with the patient for some time today and went over with her eustachiantube dysfunction. I did again pop the ear today, and she felt some relief of symptoms with that. I talked with her about using the Flonase on a regular basis and the need to do that to have maximal benefit. Also talked to her about placing a tube if she would desire, but I would give the spray and frequent Valsalvas a chance to see if that will clear. TMJ also can be contributing to this and she has an appointment with the dentist in the future. She is going to discuss that with them, possible bite block. For now we are going to give the spray a trial. I gave her a new prescription with 6 refills. I will see her back in a couple months if symptoms continue. Thank you very much for the opportunity to participate in the care of your patient. Michael Deshpande MD documented in this encounter Nursing Notes Mouna Dupont CMA - 07/02/2013 1:03 PM CDT Chief Complaint Patient presents with ??? Consult Ear issues and Dizziness Mouna Dupont CMA documented in this encounter Plan of Treatment Not on filedocumented as of this encounter Procedures Procedure Name Priority Date/Time Associated Diagnosis Comme nts HC BINOCULAR MICROSCOPY Routine 07/02/2013 2:01 PM CDT N dina congestion Dysfunction of eustachian tube, bilateral HC TRANSNASAL EUSTACH Routine 07/02/2013 2:01 PM CDT Fercho al congestion TUBE INFLATE Dysfunction of eustachian tube, bilateral documented in this encounter Visit Diagnoses Diagnosis Nasal congestion - Primary Other diseases of nasal cavity and sinus es Dysfunction of Eustachian tube, bilatera l documented in this encounter Care Teams Composition Roll Maker And Cutter Relationship Specialty Start Date End Date Caitlin Ballesteros MD PCP - General 10/08/11 08/11/13 documented as of this encounter
--- OUTSIDE RECORDS SUMMARY | 2021-12-17 15:10 | XMS_ITS | Encounter Summary ---
:1980 Author Organization [place] Address [facility] [place] [address] Care Team Providers Name Role Phone Bebeto Roth MD Unavailable Astrid Rios PA-C Unavailable [facility] Primary Care Provider + Reason for Referral [facility] - Closed Specialty Diagnoses / Procedures Referred By Contact Refer red To Contact Diagnoses Kyphoscoliosis Astrid Rios PA-C [facility] [address] [place] [id number] Referral ID Status Reason Start Date Expiration Date Visits Requ ested Visits Authorized [id number] Closed 07/16/2014 01/12/2015 1 1 Reason for Visit Reason Comments RECHECK s/p spinal fusion 09/3009, ba ck cracking Encounter Details Date Type Department Care Team Description 07/16/2014 Office Visit Orthopaedic Clinic Astrid Rios Kyphoscoliosis (Primary [place] MELISA Dx) Rehabilitation [facility] 1st Floor, [address] [place] [address] 3580 [facility] [phone] [facility] [phone] [place] [address] Social History Tobacco Use Types Packs/Day Years [...] - Inhaled Oxygen Concentration - - Weight 70.6 kg (155 lb 9.6 oz) 07/16/2014 9:41 AM CDT Height 161.3 cm (5' 3.5) 07/16/2014 9:41 AM CDT Body Mass Index 27.13 07/16/2014 9:41 AM CDT documented in this encounter Progress Notes Astrid Teixeira PA-C - 07/16/2014 2:00 PM CDT HISTORY OF PRESENT ILLNESS: Azul is a pleasant 33-year-old female who presents today with back cracking. She did have a spinal fusion in 09/2009 for kyphoscoliosis. She has been doing well since that surgery. She denies any pain out of the ordinary. She states that she has typical muscle pain aftera long day, but does not have any increased pain from this cracking that she is hearing in her back.Last time she was seen by Dr. Roth, he did recommend physical therapy focusing on core stabilization and the Kyle method to avoid progression of her kyphosis above her fusion. The patient has been undergoing therapy with an Kyle therapist and has been doing her own physical therapy stretches at home based on therapy that she has been through in the past. She typically has this cracking sensation when she is doing therapy; one time she did have it when she was getting dressed which concerned her. She thought that since she has had her spine fused she should not have any facets to crack any longer. EQ-5D today was 80. PHYSICAL EXAMINATION: This is a well-nourished, well-developed female in no acute distress, alert and oriented x3. Head is normocephalic and atraumatic. MUSCULOSKELETAL: Shows no tenderness to palpation throughout her entire spine. She does have a right-sided rib prominence due to remainder of her scoliosis. SKIN: No suspicious lesions or rashes. NEUROLOGIC: Gait is nonantalgic without assistive devices. PSYCHIATRIC: The patient's affect is within normal limits. IMAGING: We reviewed previous imaging today but no new imaging was completed. CLINICAL ASSESSMENT: Kyphoscoliosis, status post posterior spinal fusion T10-L3. PLAN: 1. Reassured patient that his back cracking is not concerning. She really only has cracking in the facet joints either above or below her fusion and she on further discussion of what may make this sound, patient did state that she actually does get some relief after she hears the crack. Again I reassured her that cracking is not concerning as long as she is not having any pain out of the ordinary of her typical pain. 2. She may continue physical therapy with her Kyle therapist as well as 1-2 visits with a formal physical therapist for evaluation of her core stabilization and therapies. She can continue doing at home. 3. The patient may follow through with scheduled followup in 05/2015 with followup and complete spine x-rays. Thank you for allowing Dr. Roth and I to participate in the care of Azul Solis. documented in this encounter Nursing Notes Newton Morrison LPN - 07/16/2014 9:46 AM CDT Reason For Visit: Chief Complaint Patient presents with ??? RECHECK s/p spinal fusion 09/3009, back cracking Primary MD: sawyer Ref. MD: Senior Rd Engineer? 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 Date of injury: Type of injury: Date of surgery: 10/12/2009 Type of surgery: S/P T10-L3 Posterior fusion Smoker: No Request smoking cessation information: No Ht 1.613 m (5' 3.5) Wt 70.58 kg (155 lb 9.6 oz) BMI 27.13 kg/m2 MOBILITY: (1) I have no problems walking SELF-CARE: (1) I have no problems washing or dressing myself USUAL ACTIVITIES (e.g. work, study, housework, family or leisure activities): (2) I have slight problems doing my usual activities PAIN / DISCOMFORT: (2) I have slight pain or discomfort ANXIETY / DEPRESSION: (3) I am moderately anxious or depressed We would like to know how good or bad your health is TODAY (0-100; 100 means the best health you canimagine; 0 means the worst health you can imagine): 80 VAS Pain Scores: PROMIS-10 Scores Global Mental Health Score: 15 Global Physical Health Score: 15 PROMIS TOTAL - SUBSCORES: 30 documented in this encounter Plan of Treatment Scheduled Referrals Name Type Priority Associated Diagnoses Order S chedule PHYSICAL THERAPY REFERRAL Referral Routine Kyphoscoliosis Ordered: 07/16/2014 (External-Prints) documented as of this encounter Visit Diagnoses Diagnosis Kyphoscoliosis - Primary Scoliosis (and kyphoscoliosis), idiopath ic documented in this encounter Care Teams Market Research Specialist Relationship Specialty Start Date End Date Clinic - Angela Laboy PCP - General 07/16/[address] [place] [address] [address] [place] [address] Bebeto Roth MD Orthopedics 07/09/14 [facility] [place] [address] Astrid Rios PA-C Physician Hand Wood Sander Physician Hand Wood Sander - 07/09/14 Surgical documented as of this encounter
--- OUTSIDE RECORDS SUMMARY | 2021-12-17 15:10 | XMS_ITS | Encounter Summary ---
:1980 Author Organization [place] Address [facility] [place] [address] Care Team Providers Name Role Phone Meeta Dewittanda Primary Care Provider Encounter Details Date Type Department Care Team Description 06/05/2014 Radiant Appointment [facility] Bebeto Roth Scoliosis; CYNDI MICHELLE Hartman MD S/P spinal fusion [place] [id number] [place] [address] FLOOR, CLINIC [address] 6 [facility] [address] [place], [place] [phone] (Work) [phone] Social History Tobacco Use Types Packs/Day Years [...] Diagnosis Comme nts XR SPINE COMPLETE Routine 06/05/2014 9:32 AM Scoliosis Results for this SCOLIOSIS 2 VIEWS CDT S/P spinal fusion proce dure are in the results section. documented in [...] the cervicothoracic junction lying approximately 6 cm mine wirer ior to the lumbosacral junction. Stable mild [...] the cervicothoracic junction lying approximately 6 cm mine wirer ior to the lumbosacral junction. Stable mild [...] Diagnosis Scoliosis Scoliosis (and kyphoscoliosis), idiopath ic S/P spinal fusion Arthrodesis status documented in this encounter Care Teams Assembly Line Robot Operator Relationship Specialty Start Date End Date Lisa Dewitt DO PCP - General 08/12/13 07/15/14 [facility] [address] [place] [address] documented as of this encounter
--- OUTSIDE RECORDS SUMMARY | 2021-12-17 15:10 | XMS_ITS | Encounter Summary ---
:1980 Author Organization [place] Address [address] [facility] [address] Care Team Providers Name Role Phone Marshalucy Lisa Primary Care Provider Encounter Details Date Type Department Care Team Description 01/29/2014 Radiant Appointment [facility] Astrid Rios, Scoliosis CYNDI MICHELLE [facility] 1ST FLOOR, CLINIC [address] [place] [phone] Social History Tobacco Use Types Packs/Day Years [...] Diagnosis Comme nts XR SPINE COMPLETE Routine 01/29/2014 8:26 AM Scoliosis Resu lts for this SCOLIOSIS 2 VIEWS SHORER procedure are in the results section. documented in this encounter Results XR Spine Complete 2 vw (01/29/2014 8:26 AM SHORER) Anatomical Region Laterality Modality Spine Computed Radiography Specimen (Source) Anatomical Location Collection Method / Collectio n Time Received Time / Laterality Volume Impressions 01/29/2014 8:54 AM SHORER IMPRESSION: 1. Redemonstration of mild dextroscolios is in the lower thoracic spine, with intact instrumentation follo wing posterior instrumented fusion from T10-L3. BASB MONTES MD Narrative 01/29/2014 8:54 AM SHORER EXAMINATION: Spine 2 views DATE: 01/29/2014 HISTORY: [...] T10-L3. BABS MONTES MD Astrid Rios PA-C [facility] ORDER TAYLOR documented in this encounter Visit Diagnoses Diagnosis Scoliosis Scoliosis (and kyphoscoliosis), idiopath ic documented in this encounter Care Teams Stave Inspector Relationship Specialty Start Date End Date Lisa Dewitt DO PCP - General 08/12/13 07/15/14 [facility] 2019 [place] [address] documented as of this encounter
--- OUTSIDE RECORDS SUMMARY | 2021-12-17 15:10 | XMS_ITS | Encounter Summary ---
:1980 Author Organization [place] Address [address] [facility] [place] [address] Care Team Providers Name Role Phone Caitlin Ballesteros MD Primary Care Provider Encounter Details Date Type Department Care Team Description 07/02/2013 Orders Only Ear, Nose and Throat Gael Deshpande MD Dizziness (Primary Dx); Clinic [facility] AND Ear pressure, right 8th Floor, Clinic [address] [facility] [address] [address] [facility] [address] [place], [place] (Work) [phone] Social History Tobacco Use Types Packs/Day Years Used Date Smoking Tobacco: Passive Smoke Exposure - Never Smoker Smokeless Tobacco: Never Alcohol Use Standard Drinks/Week Comments No 0 (1 standard drink = 0.6 oz pure alcoho l) Sex Assigned at Date Recorded Not on file documented as of this encounter Plan of Treatment Not on filedocumented as of this encounter Visit Diagnoses Diagnosis Dizziness - Primary Dizziness and giddiness Ear pressure, right documented in this encounter Care Teams Tractor Crane Operator Relationship Specialty Start Date End Date Caitlin Ballesetros MD PCP - General 10/08/11 08/11/13 documented as of this encounter
--- OUTSIDE RECORDS SUMMARY | 2021-12-17 15:10 | XMS_ITS | Encounter Summary ---
:1980 Author Organization [place] Address [address] [facility] [place] [place] [address] Care Team Providers Name Role Phone Lisa Dewitt DO Primary Care Provider Encounter Details Date Type Department Care Team Description 09/17/2013 Orders Only [facility] Medicine Lisa Dewitt DO Acne vulgaris Clinic [facility] [address] [place] [address] [place] [address] [place], [place] [address] [phone] Social History Tobacco Use Types Packs/Day Years [...] acne documented in this encounter Care Teams Returns Supervisor Relationship Specialty Start Date End Date Lisa Dewitt DO PCP - General 08/12/13 07/15/14 [facility] [address] [place] [address] documented as of this encounter
--- OUTSIDE RECORDS SUMMARY | 2021-12-17 15:10 | XMS_ITS | Encounter Summary ---
:1980 Author Organization [place] Address [address] [place] [address] Care Team Providers Name Role Phone Bebeto Roth MD Unavailable Astrid Rios PA-C Unavailable Clinic - [facility] Primary Care Provider + Reason for Visit Reason Onset Date Comments Refill Request 03/06/2015 minocycline (MINOCIN ,DYNACIN) 100 MG capsule Encounter Details Date Type Department Care Team Description 03/06/2015 Telephone [facility] Family Lisa Dewitt, Refill Re [facility] Clinic DO (minocycline [address] [place] [address], [facility] (MINOCIN,DYNACIN) 100 MG [address] capsule) [place], [place] [address] [place], [place] [phone] Social History Tobacco Use Types Packs/Day Years Used Date Smoking Tobacco: Never Smokeless Tobacco: Never Alcohol Use Standard Drinks/Week Comments No 0 (1 standard drink = 0.6 oz pure alcoho l) Sex Assigned at Date Recorded Not on file documented as of this encounter Miscellaneous Notes Telephone Encounter - Clarita Gunderson RN - 03/06/2015 2:05 PM CST Called patient. Patient has not been seen in clinic since 2013. Per policy, advised patient to follow up in clinic for refill. Patient verbalized understanding and hung up phone. Clarita Gunderson RN O SCRIBE OPERATOR Telephone Encounter - Joana Banerjee CMA - 03/06/2015 1:11 PM CST [facility] Family Medicine phone call message- patient requesting a refill: Full Medication Name: minocycline (MINOCIN,DYNACIN) 100 MG capsule 90 capsule 3 12/31/2013 -- Sig: Take 1 capsule (100 mg) by mouth daily Class: Fax Route: Oral Order: [id number] Dose: Pharmacy confirmed as [facility] [id number] [address] [facility] & [address] [place] [phone] : Yes Additional Comments: OK to leave a message on voice mail? Yes Primary language: Chilean Phlebotomy Director needed? No Call taken on March 06, 2015 at 1:12 PM by Joana Banerjee O SCRIBE OPERATOR documented in this encounter Plan of Treatment Not on filedocumented as of this encounter Visit Diagnoses Not on filedocumented in this encounter Care Teams Metal Casting Trades Worker Relationship Specialty Start Date End Date Clinic - Angela Laboy PCP - General 07/16/[address] [place] [address] [address] [place] [address] Bebeto Roth MD Orthopedics 07/09/14 [facility] [place] [address] Astrid Rios PA-C Physician Court Advocate Physician Court Advocate - 07/09/14 Surgical documented as of this encounter
--- OUTSIDE RECORDS SUMMARY | 2021-12-17 15:10 | XMS_ITS | Encounter Summary ---
:1980 Author Organization [place] Address [facility] [place] [address] Care Team Providers Name Role Phone Lisa Dewitt DO Primary Care Provider Encounter Details Date Type Department Care Team Description 08/14/2013 Orders Only [facility] Lisa Dewitt Contracep tion (Primary Medicine Clinic DO Dx) [address] [place] [address] [place] [place] [address] [place], [place] [phone] [address] Social History Tobacco Use Types Packs/Day Years [...] management documented in this encounter Care Teams Priming Powder Premix Blender Relationship Specialty Start Date End Date Lisa Dewitt DO PCP - General 08/12/13 07/15/14 [facility] [address] [place] [phone] documented as of this encounter
--- OUTSIDE RECORDS SUMMARY | 2021-12-17 15:10 | XMS_ITS | Encounter Summary ---
:1980 Author Organization [place] Address [address] [facility] [place] [address] Care Team Providers Name Role Phone Caitlin Ballesteros MD Primary Care Provider Encounter Details Date Type Department Care Team Description 01/08/2013 Telephone [facility] Syd Alvarez MD Clinic [address] [place] [address], [address] [place], [place] [address] Social History Tobacco Use Types [...] as of this encounter Visit Diagnoses Diagnosis SHAHNAZ (generalized anxiety disorder) - Emerald cotter Generalized anxiety disorder documented in this encounter Care Teams Sales And Service Specialist Relationship Specialty Start Date End Date Caitlin Ballesteros MD PCP - General 10/08/11 08/11/13 documented as of this encounter
--- OUTSIDE RECORDS SUMMARY | 2021-12-17 15:10 | XMS_ITS | Encounter Summary ---
:1980 Author Organization [place] Address [facility] [place] [address] Care Team Providers Name Role Phone Caitlin Ballesteros MD Primary Care Provider Reason for Referral - Closed Specialty Diagnoses / Procedures Referred By Contact Refer red To Contact Diagnoses Anxiety Panic attack Del Alvarez MD [address] [place] [id number] Referral ID Status Reason Start Date Expiration Date Visits Requ ested Visits Authorized [id number] Closed 01/04/2013 07/03/2013 1 1 ITY DEVELOPER Reason for Visit Reason Comments Recheck Medication Hydroxyzine Encounter Details Date Type Department Care Team Description 01/01/2013 Office Visit [facility] Sonja Alvarez (Emerald cotter Dx); Medicine Clinic MD Del Panic attack [address], [address] [place], [place] [address] Social History Tobacco Use Types Packs/Day Years Used Date Smoking Tobacco: Passive Smoke Exposure - Never Smoker Smokeless Tobacco: Never Alcohol Use Standard Drinks/Week Comments No 0 (1 standard drink = 0.6 oz pure alcoho l) Sex Assigned at Date Recorded Not on file documented as of this encounter Last Filed Vital Signs Vital Sign Reading Time Taken Comments Blood Pressure 116/77 01/01/2013 4:04 PM CLARITY DEVELOPER Pulse 100 01/01/2013 4:04 PM CLARITY DEVELOPER Temperature 36.6 ??C (97.9 ??F) 01/01/2013 4:04 PM CLARITY DEVELOPER Respiratory Rate - - Oxygen Saturation 99% 01/01/2013 4:04 PM CLARITY DEVELOPER Inhaled Oxygen Concentration - - Weight 72.1 kg (159 lb) 01/01/2013 4:04 PM CLARITY DEVELOPER Height 156.7 cm (5' 1.7) 01/01/2013 4:04 PM CLARITY DEVELOPER Body Mass Index 29.36 01/01/2013 4:04 PM CLARITY DEVELOPER documented in this encounter Patient Instructions Patient InstructionsDel Spencer MD - 01/01/2013 4:46 PM CLARITY DEVELOPER [facility]: [phone] [facility] [place] [address] Patient to call to make appt Patients PCP needs to be changed From [facility] to [facility] ITY DEVELOPER documented in this encounter Progress Notes Figueroa Swain MD - 01/01/2013 4:35 PM CST Preceptor Attestation: Patient's case reviewed and discussed with resident and I examined the patient. I agree with writtenassessment and plan of care Supervising Physician: Figueroa Swain MD MD [facility] ITY DEVELOPER Del Spencer MD - 01/01/2013 4:23 PM CST SUBJECTIVE 32 year old female presents for follow up of concern(s) listed below: - Medication follow up. Patient with history of panic attack and anxiety for many years. The last episode happened two days ago with heart raising, twitching and anxiety. She does not when and why these episodes happens. She thinks it is in relation with health stress and usually happens when she is out of home, never at home. Also she is under a lot of stress now, because she has a presentation in two weeks and she is afraid of have a panic attack during this public presentation. She had been taking lorazepam occasionallyduring the last year, and is helping a lot. She ran out of medication two months ago. She reports notremor, heat or cold intolerance, palpitations, fever, swelling, appetite or weight changes. Rest of ROS: Neuro: No headache. General: No appetite or weight changes. ENT: No sore throat. CV: No chest pain. Resp: No shortness of breath. Abdomen: no abdominal pain,vomiting or diarrhea. : No dysuria. MSK: No joint pain or swelling. Skin: No rash. Psych: See above. PMH , ALLERGIES AND MEDICATIONS: Reviewed. Patient Active Problem List Diagnosis ??? Adolescent idiopathic scoliosis ??? Health Alf ??? Acne vulgaris ??? Anxiety ??? Congenital [...] fluticasone (FLONASE) 50 MCG/ACT nasal spray Active [place] 1-2 sprays into both nostrils daily ??? benzoyl peroxide 5 % gel Active Use over the areas everyday 1-2 times/daily. Please use it alongwith other ointment. Allergies Allergen Reactions ??? Seasonal Allergies No results found for this or any previous visit (from the past 24 hour(s)). OBJECTIVE EXAM Filed Vitals: 01/01/13 1604 BP: 116/77 Pulse: 100 Temp: 97.9 ??F (36.6 ??C) TempSrc: Oral Height: 5' 1.7 (156.7 cm) Weight: 159 lb (72.122 kg) SpO2: 99% Body mass index is 29.36 kg/(m^2). GENERAL: healthy, alert and no distress EYES: Eyes grossly normal to inspection, extraocular movements - intact, and PERRL RESP: lungs clear to auscultation - no rales, no rhonchi, no wheezes CV: regular rates and rhythm, normal S1 S2, no S3 or S4 and no murmur, no click or rub - MS: extremities- no gross deformities noted, no edema SKIN: no suspicious lesions, no rashes PSYCH: Alert and oriented times 3; speech- coherent , normal rate and volume; able to articulate logical thoughts, able to abstract reason, no tangential thoughts, no hallucinations or delusions, affect- normal Labs: None. ASSESSMENT / PLAN: 300.00 Anxiety (primary encounter diagnosis)w/ panic attacks. Comment: Chronic, Worsening her SHAHNAZ scored 6, today. Plan:Continue: - LORazepam (ATIVAN) 0.5 MG tablet, if intense anxiety. Pro and cons of this medication are explained, including withdrawal symptoms. The plan is discontinue this medication in the next future. Start: -Sertraline (ZOLOFT) 25 MG tablet daily, increase to 50 mg daily in one week. - Follow up in one month. - MENTAL HEALTH REFERRAL(CBT), patient does not have time to go during business hours. 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 Options for treatment and follow-up care were reviewed with the patient . Azul Garg engaged in the decision making process and verbalized understanding of the options discussed and agreed with the final plan. Del Alvarez. Gagan Aquino's Page: [phone] ITY DEVELOPER documented in this encounter Plan of Treatment Scheduled Referrals Name Type Priority Associated Diagnoses Order S [facility] MENTAL HEALTH REFERRAL Referral Routine Anxiety Ordered: 01/04/2013 Panic attack documented as of this encounter Visit Diagnoses Diagnosis Anxiety - Primary Anxiety state, unspecified Panic attack Panic disorder without agoraphobia documented in this encounter Care Teams Mortgage Originator Relationship Specialty Start Date End Date Caitlin Ballesteros MD PCP - General 10/08/11 08/11/13 documented as of this encounter
--- OUTSIDE RECORDS SUMMARY | 2021-12-17 15:10 | XMS_ITS | Encounter Summary ---
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 Feeling screws an d clicking Encounter Details Date Type Department Care Team Description 01/29/2014 Office Visit Orthopaedic Clinic Astrid Rios, Scoliosis (Primary Dx); [facility] MELISA Acquired postural kyphosis [facility] 1st Floor[address] [place] [address] [place] [address], [id number] [place] [id number] Social History Tobacco Use Types Packs/Day Years [...] Weight 68.9 kg (151 lb 12.8 oz) 01/29/2014 8:18 AM PARAFFIN MACHINE OPERATOR Height 160 cm (5' 3) 01/29/2014 8:18 AM PARAFFIN MACHINE OPERATOR Body Mass Index 26.89 01/29/2014 8:18 AM PARAFFIN MACHINE OPERATOR documented in this encounter Progress Notes Astrid Teixeira, MELISA - 01/29/2014 8:11 AM CST REASON FOR CONSULTATION: No chief complaint on file. REFERRING PHYSICIAN: Myles De Oliveira PRIMARY CARE PHYSICIAN: Lisa Gardiner HISTORY OF PRESENT ILLNESS: Azul Tellez is a 33 year old female who presents with concern about spinal instrumentation. Recently starting feeling instrumentation and heard clicking in her back. Underwent posterior spinal fusion T10-L3 for idiopathic scoliosis on 10/12/[address] De Oliveira. Denies currently being in pain, more concerned about instrumentation and progression of her curve. Clickingor crack she heard was midline in the middle of her spine. Blaine it one time yesterday, no recurrence. Also states she can feel the hardware at the top of her fusion. Gets occasional shooting/sharp pain when instrumentation is palpated or rubs against a chair wrong. States she has anxiety and fixates on problems once she notices them. EQ-5D: 70 Pain Scale: 0 REVIEW OF SYSTEMS: A 12-point review of systems was completed and is negative except for otherwise noted above in the history of present illness. Skin: negative No hairy patches, or skin defects in lower back. Eyes: negative Ears/Nose/Throat: negative Respiratory: No shortness of breath, dyspnea on exertion, cough, or hemoptysis Cardiovascular: negative Gastrointestinal: negative Genitourinary: negative Musculoskeletal: negative Neurologic: negative Psychiatric: negative Hematologic/Lymphatic/Immunologic: negative Endocrine: negative Past medical, past surgical, social, family history, medications, and allergies reviewed on the orthopaedic surgery intake form which is scanned into the electronic record with pertinent positives commented on. Allergies Allergen Reactions ??? Seasonal Allergies Past Medical History Diagnosis Date ??? Abnormal Pap smear in past- normal since then ??? Anemia with ??? Complication of anesthesia Past Surgical History Procedure Laterality Date ??? C spinal fusion,ant,ea adnl level 2010 Family History Problem Relation Age of Onset ??? Family History Negative History Substance Use Topics ??? Smoking status: Passive Smoke Exposure - Never Smoker ??? Smokeless tobacco: Never Used ??? Alcohol Use: No Current Outpatient Prescriptions Medication ??? permethrin 1 % LIQD ??? minocycline (MINOCIN,DYNACIN) 100 MG capsule ??? fluticasone (FLONASE) 50 MCG/ACT nasal spray ??? levonorgestrel-ethinyl estradiol (SEASONALE) 0.15-0.03 MG per tablet ??? loratadine-pseudoePHEDrine (CLARITIN-D 24-HOUR) 10-240 MG per tablet ??? levonorgestrel-ethinyl estradiol (SEASONALE) 0.15-0.03 MG per tablet ??? ibuprofen (ADVIL,MOTRIN) 600 MG tablet ??? norgestim-eth estrad triphasic (ORTHO TRI-CYCLEN, 28,) 0.18/0.215/0.25 MG-35 MCG TABS tablet ??? LORazepam (ATIVAN) 0.5 MG tablet ??? benzoyl peroxide 5 % gel No current facility-administered medications for this visit. PHYSICAL EXAM: General: WNWD female in mild acute distress, alert and oriented x 3. Stance shows normal coronal andsagittal alignment. Head: Normocephalic. No masses, lesions, or abnormalities Musculoskeletal: Tender to palpation at top of fusion, approximately T10 level. LEFT RIGHT Hip flexors 5/5 5/5 Quadriceps 5/5 5/5 Hamstrings 5/5 5/5 Gastroc/soleus 5/5 5/5 EHL 5/5 5/5 Skin: no suspicious lesions or rashes Neurologic: Gait non-antalgic without assistive devices. Reflexes normal and symmetric. Sensation grossly WNL throughout the L3-S1 nerve roots. LEFT RIGHT Patellar 2/4 2/4 Achilles 2/4 2/4 Psychiatric: mentation appears normal and affect normal IMAGING: XR Complete spine showed redemonstration of mild dextroscoliosis in the lower thoracic spine, with intact instrumentation following posterior instrumented fusion from T10-L3. Most proximal facet plug appears to be possibly loose, unchanged compared to previous XR in 2010. CLINICAL ASSESSMENT: 1. Scoliosis S/P posterior spinal fusion T10-L3 PLAN: 1. Kyphosis has very mildly progressed, increase of 5-6 degrees which is just outside of measurementvariability. 2. Azul is very concerned about the progression of her curve. Does not want scoliosis or kyphosis to worsen. 3. Ordered physical therapy for core stabilization and paraspinous muscle strengthening. 4. Reassured Azul that her spine is not likely to progress more than 1-2 degrees per year. No braceis warranted at this time. Focus on PT exercises and cardiovascular fitness. 5. If pain becomes an issues, follow up in this clinic. All questions and concerns were answered to the patient's apparent satisfaction before leaving the clinic. Thank you for allowing us to see this pleasant woman. Dr. De Oliveira and I are happy to be involved in her care. Respectfully, Astrid Teixeira PA-C [facility] Patient Care Team: Lisa Gardiner DO as PCP - General MYLES DE OLIVEIRA Copy to patient AGUSTINA TELLEZ [id number] [place] [phone] FFIN MACHINE OPERATOR documented in this encounter Nursing Notes John Arseniokatt, STEFANIE - 01/29/2014 8:19 AM CST Reason For Visit: Chief Complaint Patient presents with ??? Back Pain Scoliosis. Feeling screws and clicking Pain Assessment Patient Currently in Pain: No (discomfort) Vitals 151 lbs 12.8 oz, 5' 3 The Body Mass Index is Body mass index is 26.9 kg/(m^2). Medications Prescription Medications as of 01/29/2014 minocycline (MINOCIN,DYNACIN) 100 MG capsule Take 1 capsule (100 mg) by mouth daily fluticasone (FLONASE) 50 MCG/ACT nasal spray Marion 1-2 sprays into both nostrils daily loratadine-pseudoePHEDrine (CLARITIN-D 24-HOUR) 10-240 MG per tablet Take 1 tablet by mouth daily ibuprofen (ADVIL,MOTRIN) 600 MG tablet Take 1 tablet (600 mg) by mouth every 8 hours as needed for pain norgestim-eth estrad triphasic (ORTHO TRI-CYCLEN, 28,) 0.18/0.215/0.25 MG-35 MCG TABS tablet Take 1tablet by mouth daily Allergies: Allergies Allergen Reactions ??? Seasonal Allergies Mago Lopez CMA FFIN MACHINE OPERATOR documented in this encounter Plan of Treatment Scheduled Referrals Name Type Priority Associated Diagnoses Order S chedule PHYSICAL THERAPY Referral Routine Scoliosis Ordered: 01/29/2014 REFERRAL (Internal) Acquired postural kyphosis documented as of this encounter Visit Diagnoses Diagnosis Scoliosis - Primary Scoliosis (and kyphoscoliosis), idiopath ic Acquired postural kyphosis Kyphosis (acquired) (postural) documented in this encounter Care Teams Corporate Quality Engineer Relationship Specialty Start Date End Date Lisa Dewitt DO PCP - General 08/12/13 07/15/14 [facility] [address] [place] [address] documented as of this encounter
--- OUTSIDE RECORDS SUMMARY | 2021-12-17 15:10 | XMS_ITS | Encounter Summary ---
:1980 Author Organization [place] Address [address] [facility] [place] [address] Care Team Providers Name Role Phone Renate Lisa Primary Care Provider Reason for Visit Reason Onset Date Comments Refill Request 08/12/2013 Encounter Details Date Type Department Care Team Description 08/12/2013 Telephone [facility] Medicine Jennifer Ballesteros MD Refill Request Clinic [address], PRACT[address] [place], [place] [address] [address] [place] [address] [phone] (Wo rk) Social History Tobacco Use Types Packs/Day Years Used Date Smoking Tobacco: Passive Smoke Exposure - Never Smoker Smokeless Tobacco: Never Alcohol Use Standard Drinks/Week Comments No 0 (1 standard drink = 0.6 oz pure alcoho l) Sex Assigned at Date Recorded Not on file documented as of this encounter Miscellaneous Notes Telephone Encounter - Nicole Strickland MD - 08/28/2013 12:41 PM CDT Called pt to discuss. Quasense (same as Seasonelle) was just re-ordered on 08/14 and she has plenty ofthis medication. She needed a new Rx for her Flonase nasal spray, which I have now re-ordered. -MD Gabe 08/28/2013 1242 Telephone Encounter - Mikki Ferrari MA - 08/12/2013 1:31 PM CDT Last office visit: 04/04/2013 RX is requesting for Quasense Tablets 91's that is not on med list, please review *Please complete refill and CLOSE ENCOUNTER. Closing the encounter signifies the refill is complete documented in this encounter Plan of Treatment Not on filedocumented as of this encounter Visit Diagnoses Diagnosis Environmental allergies Allergic rhinitis, cause unspecified documented in this encounter Care Teams Field Contact Technician Relationship Specialty Start Date End Date Lisa Dewitt DO PCP - General 08/12/13 07/15/14 [facility] [address] [place] [address] documented as of this encounter
--- OUTSIDE RECORDS SUMMARY | 2021-12-17 15:10 | XMS_ITS | Encounter Summary ---
:1980 Author Organization [place] Address [address] [place] [address]. [place] [address] Care Team Providers Name Role Phone Caitlin Ballesteros MD Primary Care Provider Reason for Visit Reason Comments Exposure to STD Encounter Details Date Type Department Care Team Description 12/16/2012 Emergency [facility] Roxanne Grider MD Vaginal yeast infection (Primary Dx); Emergency Department [address] [place] [address] Possible exposure to STD [address] [place] [id number] [phone] (Wo rk) Social History Tobacco Use Types Packs/Day Years Used Date Smoking Tobacco: Passive Smoke Exposure - Never Smoker Alcohol Use Standard Drinks/Week Comments No 0 (1 standard drink = 0.6 oz pure alcoho l) Sex Assigned at Date Recorded Not on file documented as of this encounter Last Filed Vital Signs Vital Sign Reading Time Taken Comments Blood Pressure 126/83 12/16/2012 6:29 PM APPLICATION TESTER Pulse 123 12/16/2012 6:29 PM APPLICATION TESTER Temperature 36.4 ??C (97.5 ??F) 12/16/2012 6:29 PM APPLICATION TESTER Respiratory Rate 16 12/16/2012 6:29 PM APPLICATION TESTER Oxygen Saturation 98% 12/16/2012 6:29 PM APPLICATION TESTER Inhaled Oxygen Concentration - - Weight - - Height - - Body Mass Index - - documented in this encounter Discharge Instructions Discharge InstructionsRoxanne Grider MD - 12/16/2012 7:42 PM CST Please make an appointment to follow up with Your Primary Care Provider and mine car mechanic--[facility] (phone: ) in 3-7 days even if entirely better. Use Diflucan for yeast infection Use Acyclovir as directed for herpes infection You or Your doctor will need to followup on your herpes virus blood test. ICATION TESTER AttachmentsThe following attachments cannot be sent through Care Everywhere. VAGINITIS, ISAI (POLISH)documented in this encounter Medications at Time of Discharge Medication Sig Dispensed Refills Start Date End Date fluconazole (DIFLUCAN) Take one tablet now, 2 tablet 0 04/201212/19/2012 150 MG tablet and one tablet in three days acyclovir (ZOVIRAX) 400 Take 1 tablet (400 30 tablet 0 04/201201/01/2013 MG tablet mg) by mouth 3 times daily benzoyl peroxide 5 % Use over the areas 45 g 3 012 01/29/2014 gelIndications: Acne everyday 1-2 vulgaris times/daily. Please use it along with other ointment. fluticasone (FLONASE) 50 [place] 1-2 sprays 1 Package 11 11/1308/28/2013 MCG/ACT nasal into both nostrils sprayIndications: daily Environmental allergies fluticasone (FLONASE) 50 [place] 2 sprays into 0 01/01/2013 MCG/ACT nasal spray both nostrils daily. levonorgestrel-ethinyl Take 1 tablet by 91 tablet 1 013 01/14/2013 estradiol (SEASONALE) mouth daily 0.15-0.03 MG per tabletIndications: Contraception management minocycline (DYNACIN) 100 Take 1 tablet (100 30 tablet 0 09/17/2013 MG tabletIndications: mg) by mouth daily Acne vulgaris documented as of this encounter Progress Notes Caitlin Ballesteros MD - 12/21/2012 4:47 PM APPLICATION TESTER Quick Note: Received the result note. 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 Per chart review, Pt was in the ER on 12/16 for possible Herpes exposure after her ex-partner was diagnosed with Herpes. I called pt and left a voice message that she needs to come in to clinic for discussion of an abnormal result in person and regarding preventive measures. I have not mentioned about the particular result (+ve HSV) over phone and also not sending a letter as not sure if she would want that. I am out of town, if she calls please let her know that she is Herpes Positive and needs to make an appointment forfurther discussion. ICATION TESTER documented in this encounter ED Notes Chuyita Gaston RN - 12/16/2012 7:48 PM CST Pt refused vitals ICATION TESTER Roxanne Grider MD - 12/16/2012 6:35 PM CST History Chief Complaint Patient presents with ??? Exposure to STD HPI Azul Garg is a 32 year old female who presents to the Emergency Department for evaluationof an exposure to an STD. She got a phone call last evening from another woman who told her that thefather of her two children tested positive for herpes without a breakout. He has denied this and refused to answer any questions, and just stated he had a clinic appointment tomorrow. The patient is nolonger with the father of her children, who is currently living with the woman who called her. He has a child with her as well. The patient thinks she may possibly have a yeast infection because she's had itching in the pubic area and vaginal discharge. She states her last episode of sexual intercourse with that male was a couple weeks ago. The patient's LMP was several months ago as she takes oral contraceptives continuously for three months, and gets her period four times a year. She denies h/o STDs. States she was tested for chlamydia two weeks ago and that test was negative. She is only in the ED because of the phone call she received last night. Social history: Patient is here with her two young children. I have reviewed the Medications, Allergies, Past Medical and Surgical History, and Social History inthe [employer] system. Review of Systems Constitutional: Negative for fever. HENT: Negative for neck pain. Eyes: Negative. Respiratory: Negative for shortness of breath. Cardiovascular: Negative for chest pain. Gastrointestinal: Negative for nausea, vomiting and abdominal pain. Genitourinary: Positive for vaginal discharge. Negative for flank pain. Skin: Negative for rash. Neurological: Negative for headaches. All other systems reviewed and are negative. Physical Exam BP: 126/83 mmHg Pulse: 123 Temp: 97.5 ??F (36.4 ??C) Resp: 16 SpO2: 98 % Physical Exam Physical Exam Constitutional: well nourished, well developed, resting comfortably Cardiovascular: tachycardic without murmurs or gallops Pulmonary/Chest: Clear to auscultation bilaterally, with no wheezes or retractions. No respiratory distress. GI: Soft with good bowel sounds. Non-tender, non-distended, with no guarding, no rebound, no peritoneal signs. : External genitalia within normal limits, no lesions, herpetic or otherwise is seen, small strawberry hemangioma on lower abdomen, yeast-like thick discharge from vaginal vault, no CMT or adnexal masses Back: No bony or CVA tenderness Musculoskeletal: no edema or clubbing Skin: Skin is warm and dry. Neurological: alert and oriented to person, place, and time. Nonfocal exam Psychiatric: normal mood and affect. ED Course Procedures Critical Care time: none [facility] Diagnoses: None 6:40PM Patient seen and evaluated by Dr. Grider in room 5. Results for orders placed during the hospital encounter of 12/16/12 (from the past 24 hour(s)) WET PREP Component Value Range Specimen Description Cervix Wet Prep Value: Many PMNs seen No clue cells seen No Trichomonas seen No yeast seen Micro Report Status FINAL 12/16/2012 URINE MACROSCOPIC WITH REFLEX TO MICRO Component Value Range Color Urine Yellow Appearance Urine Slightly Cloudy Glucose Urine Negative NEG mg/dL Bilirubin Urine Negative NEG Ketones Urine Negative NEG mg/dL Specific [place] Urine 1.023 1.003 - 1.035 Blood Urine Small (*) NEG pH Urine 5.5 5.0 - 7.0 pH Protein Albumin Urine 10 (*) NEG mg/dL Urobilinogen mg/dL Normal 0.0 - 2.0 mg/dL Nitrite Urine Negative NEG Leukocyte Esterase Urine Moderate (*) NEG Source Midstream Urine RBC Urine 5 (*) 0 - 2 /HPF WBC Urine 9 (*) 0 - 2 /HPF Bacteria Urine Few (*) NEG /HPF Squamous Epithelial /HPF Urine 4 (*) 0 - 1 /HPF Mucous Urine Present (*) NEG /LPF HCG QUAL URINE POCT Component Value Range HCG Qual Urine negative neg Internal QC OK Yes Assessments & Plan (with Medical Decision Making) I have reviewed the nursing notes. Emergency Department course: The patient was seen and examined at 1835 pm on Monday evening. The patient's pelvic exam suggests that she has a yeast infection. She has no pain, but does have vaginal itching which is consistent with a yeast infection. I prescribed Diflucan for her yeast infection. She is uncertain as to whether her ex-boyfriend was diagnosed with herpes or not. I do not see any lesions on her genitalia. I elected to treat her with a 10 day course of Acyclovir for possible herpesexposure. She has no lesions to culture and blood tests may be expensive and not alter her clinical course. UA is contaminated and HCG is negative. I did not treat her for presumptively for GC/chlamydia, as the patient told me she had negative tests done just two weeks ago. These cultures are pending. She is to follow up with her PMD or crematory attendant physician next week for culture results and further evaluation and treatment. Addendum: The patient is very concerned about being exposed to herpes. She would prefer that blood testing be done, as her ex-boyfriend will not to talk to her. I spoke with laboratory and will order herpes simplex IgG and IgM with reflux. The patient can follow this result with her PMD or crematory attendant physician next week. I have reviewed the findings, diagnosis, plan and need for follow up with the patient. New Prescriptions ACYCLOVIR (ZOVIRAX) 400 MG TABLET Take 1 tablet (400 mg) by mouth 3 times daily FLUCONAZOLE (DIFLUCAN) 150 MG TABLET Take one tablet now, and one tablet in three days Final diagnoses: Vaginal yeast infection Possible exposure to STD INadya, am serving as a trained biomedical repair technician to document services personally performed by Dr. Cheo MD, based on the provider's statements to me. This document has been checked and approved by the attending provider. December 16, 2012 12/16/2012 [facility], EMERGENCY DEPARTMENT Roxanne Grider MD 12/16/121956 ICATION TESTER documented in this encounter Plan of Treatment Not on filedocumented as of this encounter Procedures Procedure Name Priority Date/Time Associated Comments Diagnosis HSV 1 AND 2 ANTIBODY Routine 12/16/2012 7:44 PM R esults for this IGG APPLICATION TESTER procedure are i n the results section. HSV 1 AND 2 IGG IGM STAT 12/16/2012 7:44 PM Re sults for this WITH REFLEX APPLICATION TESTER procedure are i n the results section. HCG QUALITATIVE URINE STAT 12/16/2012 6:58 PM Results for this POCT APPLICATION TESTER procedure are i n the results section. WET PREPARATION STAT 12/16/2012 6:48 PM Result s for this APPLICATION TESTER procedure are i n the results section. URINE MACROSCOPIC STAT 12/16/2012 6:48 PM Resu lts for this WITH REFLEX TO MICRO APPLICATION TESTER procedu re are in the results section. NEISSERIA GONORRHOEAE STAT 12/16/2012 6:48 PM Results for this PCR APPLICATION TESTER procedure are i n the results section. CHLAMYDIA TRACHOMATIS STAT 12/16/2012 6:48 PM Results for this PCR APPLICATION TESTER procedure are i n the results section. documented in this encounter Results HSV 1 and 2 antibody IgG (12/16/2012 7:44 PM APPLICATION TESTER) athologist Signature HSV 1 IgG PALOMA 24.90 Index [facility] Value MICROBIOLOGY Comment: Positive, suggests immunologic exposure. HSV 2 IgG PALOMA 0.06 Index Value [facility] MICROBIOL OGY Comment: No detectable antibody. This type specific antibody assay is di fferent from total HSV antibody assay. The two may be discrepant 5-10% of the time. Specimen Anatomical Collection Method Collection Time Receive d Time (Source) Location / / Volume Laterality 12/16/2012 7:44 PM 3 7:47 APPLICATION TESTER PM APPLICATION TESTER Roxanne Grider MD LAB - BLOOD ORDERABLES Performing Organization Address City/State/ZIP Code Phon e Number [facility] [address] [place] [address] [place] [facility] MICROBIOLOGY HSV 1 and 2 IgG IgM with reflex (12/16/2012 7:44 PM APPLICATION TESTER) athologist Signature HSV IgG 5.27 Index [facility] Antibody Value MICROBIOLOGY W/Reflex Comment: Positive Herpes Simplex Virus IgM Antibody 0.43 Index Value [facility] MICROBIOLOGY Comment: No detectable antibody. Specimen Anatomical Collection Method Collection Time Receive d Time (Source) Location / / Volume Laterality Blood specimen 12/16/2012 7:44 PM 013 7:47 (specimen) APPLICATION TESTER PM APPLICATION TESTER Roxanne Grider MD LAB - BLOOD ORDERABLES Performing Organization Address City/State/ZIP Code Phon e Number [facility] [address] [place], [place] [id number] [place] [address] [facility] MICROBIOLOGY hCG qual urine POCT (12/16/2012 6:58 PM APPLICATION TESTER) P athologist Signature HCG Qual Urine negative neg Internal QC OK Yes Specimen (Source) Anatomical Collection Method Collection Time Re ceived Time Location / / Volume Laterality Urine specimen 12/16/2012 6:58 PM (specimen) APPLICATION TESTER Roxanne Grider MD LAB - ENTER/EDIT POCT (ABNORMAL) UA reflex to microscopic (12/16/2012 6:48 PM APPLICATION TESTER) [facility] Method Time Signature Color Urine Yellow [facility] [place] [facility] Appearance Urine Slightly [facility] Cloudy [facility] Glucose Urine Negative NEG mg/dL [facility] Bilirubin Urine Negative NEG [facility] Ketones Urine Negative NEG mg/dL [facility] Specific [place] 1.023 1.003 - [facility] Urine 1.035 [facility] Blood Urine Small (A) NEG [facility] pH Urine 5.5 5.0 - 7.0 [facility] pH [facility] Protein Albumin 10 (A) NEG mg/dL [facility] Urine [facility] Urobilinogen Normal 0.0 - 2.0 [facility] mg/dL mg/dL [facility] Nitrite Urine Negative NEG [facility] [place] Leukocyte Moderate (A) NEG [facility] Esterase Urine [facility] Source Midstream [facility] Urine [facility] RBC Urine 5 (H) 0 - 2 [facility] /HPF [facility] WBC Urine 9 (H) 0 - 2 [facility] /HPF [facility] Bacteria Urine Few (A) NEG /HPF [facility] [place] [facility] Squamous 4 (H) 0 - 1 [facility] Epithelial /HPF /HPF [facility] LAB Mucous Urine Present (A) NEG /LPF [facility] Specimen Anatomical Collection Method Collection Time Receive d Time (Source) Location / / Volume Laterality Urine specimen URINE SPECIMEN 12/16/2012 6:48 PM 12/16 7:01 (specimen) OBTAINED BY CLEAN APPLICATION TESTER PM APPLICATION TESTER CATCH PROCEDURE / Unknown Roxanne Grider MD LAB - URINE ORDERABLES Performing Organization Address City/State/ZIP Code Phon e Number [facility] [address] [place] [address] [facility] Chlamydia trachomatis PCR (12/16/2012 6:48 PM APPLICATION TESTER) Component Value Ref Test Analysis Performed At [facility] Method [place] Signature Specimen Cervix [facility] Description LAB Chlamydia Negative for C. trachomatis rRNA by investor mediated amplification. [facility] Trachomatis A negative result by transc ription mediated amplification does not preclude the MICROBIOLOGY PCR presence of C. trachomatis infection because results are dependent on proper and adequate collection, absence of inhibitors, and suffici ent rRNA to be detected. Specimen Anatomical Collection Method Collection Time Receive d Time (Source) Location / / Volume Laterality Urine specimen 12/16/2012 6:48 PM 013 6:59 (specimen) APPLICATION TESTER PM APPLICATION TESTER Roxanne Grider MD LAB - MICRO GENERAL ORDERABL ES Performing Organization Address City/State/ZIP Code Phon e Number [facility] [address] [place] [address] [facility] MICROBIOLOGY Neisseria gonorrhoeae PCR (12/16/2012 6:48 PM APPLICATION TESTER) Component Value Ref Test Analysis Performed At [facility] Method [facility] Specimen Cervix [facility] Descrip LAB N Gonorrhea Negative for N. gonorrhoeae rRNA by investor mediated amplification. [facility] PCR A negative result by transc ription mediated amplification does not preclude the MICROBIOLOGY presence of N. gonorrhoeae infection because re sults are dependent on proper and adequate collection, absence of inhibitors, and suffici ent rRNA to be detected. Specimen Anatomical Collection Method Collection Time Receive d Time (Source) Location / / Volume Laterality Urine specimen 12/16/2012 6:48 PM 013 6:59 (specimen) APPLICATION TESTER PM APPLICATION TESTER Roxanne Grider MD LAB - MICRO GENERAL ORDERABL ES Performing Organization Address City/State/ZIP Code Phon e Number [facility] [address] [place] [address] [facility] LAB [facility] MICROBIOLOGY Wet prep (12/16/2012 6:48 PM APPLICATION TESTER) Patholo gist Method Time Signature Specimen Cervix [facility] Description [facility] Wet Prep Many PMNs seen [facility] No clue cells seen [facility] No Trichomonas seen LAB No yeast seen Micro Report FINAL [facility] Status 12/16/2012 [facility] Specimen Anatomical Collection Method Collection Time Receive d Time (Source) Location / / Volume Laterality Specimen from 12/16/2012 6:48 PM 12/17/19 13 6:56 vagina APPLICATION TESTER PM APPLICATION TESTER (specimen) Roxanne Grider MD LAB - MICRO GENERAL ORDERABL ES Performing Organization Address City/State/ZIP Code Phon e Number [facility] [address] [place], [place] [id number] [place] [address] [facility] documented in this encounter Visit Diagnoses Diagnosis Vaginal yeast infection - Primary Candidiasis of vulva and vagina Possible exposure to STD Other specified personal history present ing hazards to health documented in this encounter Care Teams Head Cleaning Porter Relationship Specialty Start Date End Date Caitlin Ballesteros MD PCP - General 10/08/11 08/11/13 documented as of this encounter
--- OUTSIDE RECORDS SUMMARY | 2021-12-17 15:10 | XMS_ITS | Encounter Summary ---
:1980 Author Organization [place] Address [address] [facility] [place] [address] Care Team Providers Name Role Phone Caitlin Ballesteros MD Primary Care Provider Reason for Visit Reason Onset Date Comments Head Lice 08/05/2013 Two youngest childre n have lice Encounter Details Date Type Department Care Team Description 08/05/2013 Telephone [facility] Caitlin Ballesteros MD Head Lice ([facility] youngest children have [address], PRACTICE lice ) [address] [facility] [place], [place] [address] [place] [address] (Wo rk) Social History Tobacco Use Types Packs/Day Years Used Date Smoking Tobacco: Passive Smoke Exposure - Never Smoker Smokeless Tobacco: Never Alcohol Use Standard Drinks/Week Comments No 0 (1 standard drink = 0.6 oz pure alcoho l) Sex Assigned at Date Recorded Not on file documented as of this encounter Miscellaneous Notes Telephone Encounter - Madison Nobles LPN - 08/05/2013 12:04 PM CDT Message forward to dr Pennington. Medication filled Azul Nobles LPN Telephone Encounter - Madison Nobles LPN - 08/05/2013 9:24 AM CDT Message forward to Dr Alvarez and Mauritanian message sent. Madison Nobles LPN Informed mom Azul that I sent message to Dr Alvarez. Madison Nobles LPN Telephone Encounter - Zuleima Duque CMA - 08/05/2013 9:18 AM CDT Mom would like an Rx for lice tx called into the pharmacy. The younger siblings are positive from daycare, Advised no open appts today for 4 patients. Please call the mother Azul thanks! documented in this encounter Plan of Treatment Not on filedocumented as of this encounter Visit Diagnoses Diagnosis Head lice - Primary Pediculus capitis (head louse) documented in this encounter Care Teams Sex Therapist Relationship Specialty Start Date End Date Caitlin Ballesteros MD PCP - General 10/08/11 08/11/13 documented as of this encounter
--- OUTSIDE RECORDS SUMMARY | 2021-12-17 15:10 | XMS_ITS | Encounter Summary ---
:1980 Author Organization [place] Address [facility] [place] [address] Care Team Providers Name Role Phone Bebeto Roth MD Unavailable Astrid Rios PA-C Unavailable Keri Elias MD Primary Care Provider Unavailable Reason for Visit Reason Onset Date Comments Refill Request 03/17/2016 Encounter Details Date Type Department Care Team Description [facility], Refill Request Clinic [address] [place] [address], [address] [place], [place] [address] Social History Tobacco Use Types Packs/Day Years Used Date Smoking Tobacco: Never Smokeless Tobacco: Never Alcohol Use Standard Drinks/Week Comments No 0 (1 standard drink = 0.6 oz pure alcoho l) Sex Assigned at Date Recorded Not on file documented as of this encounter Miscellaneous Notes Telephone Encounter - Clementina Curtis CMA - 03/17/2016 7:34 AM CST Request for medication refill: Date of last visit at clinic: 08/05/2015 Please complete refill if appropriate and CLOSE ENCOUNTER. Closing the encounter signifies the refill is complete. If refill has been denied, please complete the smart phrase .smirefuse and route it to the [facility] COMMERCIAL TITLE EXAMINER pool to inform the patient and the pharmacy. Clementina Curtis CMA D HELPER documented in this encounter Plan of Treatment Not on filedocumented as of this encounter Visit Diagnoses Diagnosis Acne vulgaris - Primary Other acne documented in this encounter Care Teams Principal Law Clerk Relationship Specialty Start Date End Date Keri Elias PCP - General Family Practice 03/12/15 9 MD Ira Glez David Wayne, MD Orthopedics 07/09/14 [facility] [place] [id number] [place] [address] Astrid Rios PA-C Physician Partition Assembly Machine Operator Physician Partition Assembly Machine Operator - 07/09/14 Surgical documented as of this encounter
--- OUTSIDE RECORDS SUMMARY | 2021-12-17 15:10 | XMS_ITS | Encounter Summary ---
:1980 Author Organization [place] Address [address] [place] [place] [address] Care Team Providers Name Role Phone Caitlin Ballesteros MD Primary Care Provider Reason for Visit Reason Onset Date Comments Other 07/10/2013 Encounter Details Date Type Department Care Team Description 07/10/2013 Telephone [facility] Jennifer Ballesteros MD Other Clinic [place] [address], [facility] [address] [place], [place] [address] [place] [address] [phone] (Wo rk) Social History Tobacco Use Types Packs/Day Years Used Date Smoking Tobacco: Passive Smoke Exposure - Never Smoker Smokeless Tobacco: Never Alcohol Use Standard Drinks/Week Comments No 0 (1 standard drink = 0.6 oz pure alcoho l) Sex Assigned at Date Recorded Not on file documented as of this encounter Miscellaneous Notes Telephone Encounter - Madison Nobles LPN - 07/10/2013 3:58 PM CDT Patient informed that she is O postitive form lab work 04-20-11. Madison Nobles LPN Telephone Encounter - Valarie Haji - 07/10/2013 3:30 PM CDT [facility] Family Medicine phone call message- general phone call: Reason for call: Patient needs to know her blood type as they are doing a blood drive at her place of employment. Return call needed: Yes OK to leave a message on voice mail? Yes Primary language: Comoran Copper Plater needed? No Call taken on July 10, 2013 at 3:30 PM by Valarie Haji documented in this encounter Plan of Treatment Not on filedocumented as of this encounter Visit Diagnoses Not on filedocumented in this encounter Care Teams Radio Board Operator Announcer Relationship Specialty Start Date End Date Caitlin Ballesteros MD PCP - General 10/08/11 08/11/13 documented as of this encounter
--- OUTSIDE RECORDS SUMMARY | 2021-12-17 15:10 | XMS_ITS | Encounter Summary ---
:1980 Author Organization [place] Address [address] [facility] [place] [address] Care Team Providers Name Role Phone Bebeto Roth MD Unavailable Astrid Rios PA-C Unavailable Keri Elias MD Primary Care Provider Unavailable Reason for Visit Reason Comments Derm Problem Over Rt Eye X 3 weeks Encounter Details Date Type Department Care Team Description 08/05/2015 Office Visit [facility] Santa Painter M D Dermatitis (Primary Dx); Medicine Clinic XXX RESIGNED XXX Anxiety; [address] [place], [place], [place] Jovanni c attack; [address] [id number] Encounter for medication refill [place], [place] [address] [phone] Social History Tobacco Use Types Packs/Day Years Used Date Smoking Tobacco: Never Smokeless Tobacco: Never Alcohol Use Standard Drinks/Week Comments No 0 (1 standard drink = 0.6 oz pure alcoho l) Sex Assigned at Date Recorded Not on file documented as of this encounter Last Filed Vital Signs Vital Sign Reading Time Taken Comments Blood Pressure 122/77 08/05/2015 3:56 PM CDT Pulse 87 08/05/2015 3:56 PM CDT Temperature 36.8 ??C (98.3 ??F) 08/05/2015 3:56 PM CDT Respiratory Rate 16 08/05/2015 3:56 PM CDT Oxygen Saturation 100% 08/05/2015 3:56 PM CDT Inhaled Oxygen Concentration - - Weight 72.9 kg (160 lb 12.8 oz) 08/05/2015 3:56 PM CDT Height 160 cm (5' 3) 08/05/2015 3:56 PM CDT Body Mass Index 28.48 08/05/2015 3:56 PM CDT documented in this encounter Patient Instructions Patient InstructionsSanta Painter MD - 08/05/2015 4:16 PM CDT Images from the original note were not included. Nonspecific Dermatitis Dermatitis is a skin rash caused by something that touches the skin and makes it irritated and inflamed.?? Your skin may be red, swollen, dry, and may be cracked. Blisters may form and ooze. The rash will itch. Dermatitis can form on the face and neck, backs of hands, forearms, genitals, and lower legs. Dermatitis is not passed from person to person. Talk with your health care provider about what may have caused the rash. Common things that cause skin allergies are metal in jewelry, plants like poison gonzález or poison oak, and certain skin care products. You will need to avoid the source of your rash in the future to prevent it from coming back. In some cases, the cause of the dermatitis may not be found. Treatment is done to relieve itching and prevent the rash from coming back. The rash should go away in a few days to a few weeks. Home care The health care provider may prescribe medications to relieve swelling and itching. Follow all instructions when using these medications. ?? Avoid anything that heats up your skin, such as hot showers or baths, or direct sunlight. This can make itching worse. ?? Stay away from whatever you think caused the rash. ?? Bathe in warm, not hot, water. Apply a moisturizing lotion after bathing to prevent dry skin. ?? Avoid skin irritants such as wool or silk clothing, grease, oils, harsh soaps, and detergents. ?? Apply cold compresses to soothe your sores to help relieve your symptoms. Do this for 30 minutes 3 to 4 times a day. You can make a cold compress by soaking a cloth in cold water. Squeeze out excesswater. You can add colloidal oatmeal to the water to help reduce itching. For severe itching in a small area, apply an ice pack wrapped in a thin towel. Do this for 20 minutes 3 to 4 times a day. ?? You can also help relieve large areas of itching by taking a lukewarm bath with colloidal oatmealadded to the water. ?? Use hydrocortisone cream for redness and irritation, unless another medicine was prescribed. You can also use benzocaine anesthetic cream or spray. ?? Use oral diphenhydramine to help reduce itching. This is an antihistamine you can buy at drug [employer] It can make you sleepy, so use lower doses during the daytime. Or you can use loratadine. This is an antihistamine that will not make you sleepy. Don???t use diphenhydramine if you haveglaucoma or have trouble urinating because of an enlarged prostate. ?? Wash your hands or use an antibacterial gel often to prevent the spread of the rash. Follow-up care Follow up with your health care provider. Make an appointment with your health care provider if yoursymptoms do not get better in the next 1 to 2 weeks. When to seek medical advice Call your health care provider right away??if any of these occur: ?? Spreading of the rash to other parts of your body ?? Severe swelling of your face, eyelids, mouth, throat or tongue ?? Trouble urinating due to swelling in the genital area ?? Fever of 100.4??F (38??C) or higher ?? Redness or swelling that gets worse ?? Pain that gets worse ?? Foul-smelling fluid leaking from the skin ?? Yellow-brown crusts on the open blisters ?? Joint pain? [id number] [employer]. [address] [place] [address]. All rights reserved. This information is not intended as a substitute for professional medical care. Always follow your healthcare professional's instructions. documented in this encounter Progress Notes Santa Painter MD - 08/05/2015 4:34 PM CDT HPI Azul Garg is a 34 year old female who presents for right upper lid rash that has been present for 3 weeks now. She stated never had this kind of rash in the past. No history of asthma or skin atophy. This started with a sunburn 3 weeks ago from a vacation. The swelling and redness has resolved but the wheal like, dry, itchy lesion still present. Has not tried any therapy for it except moisturizer . No other similar lesion on any part of her body. Medication refill for Xanax: used intermittently for severe situational anxiety Problem, Medication and Allergy Lists were reviewed and are current. reviewed and updated if needed.. Patient is an established patient of this clinic.. Review of Systems: ROS: 10 point ROS neg other than the symptoms noted above in the HPI. Physical Exam: Filed Vitals: 08/05/15 1556 BP: 122/77 Pulse: 87 Temp: 98.3 ??F (36.8 ??C) TempSrc: Oral Resp: 16 Height: 5' 3 (160 cm) Weight: 160 lb 12.8 oz (72.938 kg) SpO2: 100% Body mass index is 28.49 kg/(m^2). Constitutional: Awake, alert, cooperative, no apparent distress, and appears stated age Skin : 4 raised, dry,flat topped patches on her upper right eyelid, no surrounding erythema , negative pain or discharge Psych : Good eye contact, well groomed, very interactive and collaborative. Good insight. Thought process is linear and coherent. Associations are tight. Mood is good. Affect euthymic. No results found for this or any previous visit (from the past 24 hour(s)). No labs done today Assessment and Plan Azul was seen today for derm problem. Diagnoses and all orders for this visit: Dermatitis of unknown etiology but likely contact dermatitis that was exacerbated by sunburn. Unlikle eczema lesion does not have the weepy appearance . Examination not consistent with erysipelas. Willtreat with low dose topical steroid. I have provided her with written material about dermatitis and skin care. Orders: - hydrocortisone acetate 1 % CREA; Externally apply topically 3 times daily Not more than 14 days lev stretch Refilled Xanax: negative red flags for misuse Medications Discontinued During This Encounter Medication Reason ??? LORazepam (ATIVAN) 0.5 MG tablet Reorder Options for treatment and follow-up care were reviewed with the patient. Azul Garg engaged in the decision making process and verbalized understanding of the options discussed and agreed with the final plan. Santa Painter MD [facility] [employer] Raiser Lockstitch Pager [phone] Payton Franks MD - 08/05/2015 4:19 PM CDT Preceptor Attestation: Patient seen and discussed with the resident. Assessment and plan reviewed with resident and agreedupon. Supervising Physician: Payton Franks MD [facility] documented in this encounter Plan of Treatment Not on filedocumented as of this encounter Visit Diagnoses Diagnosis Dermatitis - Primary Contact dermatitis and other eczema, due to unspecified cause Anxiety Anxiety state, unspecified Panic attack Panic disorder without agoraphobia Encounter for medication refill Issue of repeat prescriptions documented in this encounter Care Teams Toll Line Inspector Relationship Specialty Start Date End Date eKri Elias PCP - General Family Practice 03/12/15 9 MD Ira Glez David Wayne, MD Orthopedics 07/09/[address] [place] [address] Astrid Rios PA-C Physician Assistant Men'S Lacrosse Coach Physician Assistant Men'S Lacrosse Coach - 07/09/14 Surgical documented as of this encounter
--- OUTSIDE RECORDS SUMMARY | 2021-12-17 15:10 | XMS_ITS | Encounter Summary ---
:1980 Author Organization [place] Address [address] [facility] [place] [address] Care Team Providers Name Role Phone Caitlin Ballesteros MD Primary Care Provider Lisa Dewitt DO Primary Care Provider Reason for Visit Reason Onset Date Comments Referral 01/04/2013 Mental Health Referr al Encounter Details Date Type Department Care Team Description 01/04/2013 Telephone [facility] Caitlin Ballesteros MD Referral (Mental Medicine Clinic [facility] Referral) [address] [place] [address], PRACTICE [address] [facility] [place], [place] [address] [place] [address] (Wo rk) Social History Tobacco Use Types Packs/Day Years Used Date Smoking Tobacco: Passive Smoke Exposure - Never Smoker Smokeless Tobacco: Never Alcohol Use Standard Drinks/Week Comments No 0 (1 standard drink = 0.6 oz pure alcoho l) Sex Assigned at Date Recorded Not on file documented as of this encounter Miscellaneous Notes Telephone Encounter - Doris Potter CMA - 01/04/2013 10:39 AM CST Referral noted ICAL CYTOGENETICIST SCIENTIST Telephone Encounter - Collin Gabriel - 01/04/2013 10:12 AM CST [facility] Family Medicine phone call message- order or referral request for patient: Order or referral being requested: Mental Health Referral Order Details: Patient states she received a phone call regarding the mental health referral for counseling. She states she would [facility] because of their hours. If referral, has the patient been seen for this problem? N/A Additional Comments: OK to leave a message on voice mail? Yes Primary language: Ghanaian Hrbp needed? No Call taken on January 04, 2013 at 10:12 AM by Collin Gabriel ICAL CYTOGENETICIST SCIENTIST documented in this encounter Plan of Treatment Not on filedocumented as of this encounter Visit Diagnoses Not on filedocumented in this encounter Care Teams Mixing Machine Tender Cork Gasket Relationship Specialty Start Date End Date Caitlin Ballesteros MD PCP - General 10/08/11 08/11/13 Lisa Dewitt DO PCP - General 08/12/13 07/15/14 [place] [address] [place] [address] documented as of this encounter
--- OUTSIDE RECORDS SUMMARY | 2021-12-17 15:11 | XMS_ITS | Encounter Summary ---
:1980 Author Organization [place] Address [address] [facility] [place] [address] Care Team Providers Name Role Phone Andreas Patel MD Primary Care Provider Caitlin Pozo MD Primary Care Provider Lisa Dewitt DO Primary Care Provider Bebeto Roth MD Unavailable Astrid Rios PA-C Unavailable [facility] Primary Care Provider + Keri Elias MD Primary Care Provider Unavailable Francisco Metz MD Primary Care Provider [phone] Francisco Metz MD Unavailable [phone] Kenton Katz MD Unavailable Unavailable Karen Veliz DO Primary Care Provider Kenton Katz MD Unavailable Unavailable Karen Veliz DO Unavailable Encounter Details Date Type Department Care Team Description 09/01/2011 Office Visit-[facility] INTERFACE P DEPT Social History Tobacco Use Types Packs/Day Years Used Date Smoking Tobacco: Never Assessed Sex Assigned at Date Recorded Not on file documented as of this encounter Progress Notes SY [facility]MP ULTRASOUND - 09/01/2011 2:00 PM CDT Operational Communication Chief: ADOLFO CURRY Status: Amended, Final Encounter: 2011-09-01 14:00:00.000 Type: FM Ultrasound Active Problems Acne Vulgaris (706.1) Anxiety (300.00) Care Coordinated By; Tier 0 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 US 2nd & 3rd Trimester Ultrasound Report Primary MD: Dr Pozo Statistical Assistant: Latesha Harley Indications: Growth on prev. u/s = 5% P: 2 Machine: [employer] 5 Pro FHR: 152 bpm Fluid:Normal TJ: 14.2 cm Placenta Location: anterior number:Jimenez Presentation: Vertex MEASUREMENTS:([place]lock) BPD: 8.4 cm 33wks 6d HC: 31.4 cm 35wks 1d AC: 29.9 cm 33wks 6d FL: 6.8 cm 35wks 1d EFW 2402g, 5lb 5oz Weight Percentile: 12%tile CONCLUSIONS: By 1st US EGA : 36wks VINCENT : 09/29/2011 By today's U/S EGA : 34wks 3d +/-2 to3 wks VINCENT U/S: 10/10/2011 Ultrasound Measurements are consistent with LMP and previous US Follow up Ultrasound as clinically indicated Patient not informed about conclusions of this ultrasound during the visit. Attending Note Images reviewed and agree with documentation. Amended By: August Ontiveros ; 09/07/2011 2:51 PM WIENER PACKER. Signature Signed By: Latesha Harley ; 09/01/2011 2:51 PM WIENER PACKER. Signed By: August Ontiveros M.D.; 09/07/2011 2:51 PM WIENER PACKER; Author. ER PACKER documented in this encounter Plan of Treatment Not on filedocumented as of this encounter Visit Diagnoses Not on filedocumented in this encounter Care Teams Development Team Lead Relationship Specialty Start Date End Date Andreas Patel MD PCP - General 10/05/11 10/07/11 [facility] [address] [place] [address] Caitlin Pozo MD PCP - General 10/08/11 08/11/13 Lisa Dewitt DO PCP - General 08/12/13 07/15/14 [facility] [address] [place], [place] [phone] Clinic - [facility], PCP - General 07/16/14 03/11/15 [facility] [address] [place], [place] [phone] Keri Elias PCP - General Family Practice 03/12/15 9 MD Isaías Glez Mitchell PCP - General Family Practice 11/14/18 04/02/20 MD Stevie Karen Veliz, PCP - General Family Medicine 04/03/20 DO [address] [place], [place] [phone] Bebeto Roth MD Orthopedics 07/09/14 [facility] [place] [id number] Astrid Rios PA-C Physician Oil Program Compliance Specialist Physician Oil Program Compliance Specialist - 07/09/14 Surgical Francisco Metz Assigned PCP 07/04/19 02/01/20 MD Stevie [address] [place] [address] Kenton Katz Assigned PCP 02/02/20 08/27/20 MD Feliberto NO INFO AVAILABLE Kenton Katz Assigned Endocrinology 08/28/20 07/23/21 MD Feliberto Provider NO INFO AVAILABLE Karen Veliz, Assigned PCP 08/28/20 DO [address] [place], [place] [phone] documented as of this encounter
--- OUTSIDE RECORDS SUMMARY | 2021-12-17 15:11 | XMS_ITS | Encounter Summary ---
:1980 Author Organization [place] Address [address] [facility] [place] [address] Care Team Providers Name Role Phone Andreas Patel MD Primary Care Provider Caitlin Ballesteros MD Primary Care Provider Lisa Dewitt DO Primary Care Provider Bebeto Roth MD Unavailable Astrid Rios PA-C Unavailable [facility] Primary Care Provider + Keri Elias MD Primary Care Provider Unavailable Francisco Metz MD Primary Care Provider [phone] Francisco Metz MD Unavailable [phone] Kenton Katz MD Unavailable Unavailable Karen Veliz DO Primary Care Provider Kenton Katz MD Unavailable Unavailable Karen Veliz DO Unavailable Encounter Details Date Type Department Care Team Description 09/30/2011 [facility] Only [facility] Angela Lyons [address] [place], [place] [phone] Social History Tobacco Use Types Packs/Day Years Used Date Smoking Tobacco: Never Alcohol Use Standard Drinks/Week Comments No 0 (1 standard drink = 0.6 oz pure alcoho l) Sex Assigned at Date Recorded Not on file documented as of this encounter Plan of Treatment Not on filedocumented as of this encounter Visit Diagnoses Not on filedocumented in this encounter Care Teams Insurance Coordinator Relationship Specialty Start Date End Date Andreas Patel MD PCP - General 10/05/11 10/07/11 [facility] [address] [place], [place] [phone] Caitlin Ballesteros MD PCP - General 10/08/11 08/11/13 Lisa Dewitt DO PCP - General 08/12/13 07/15/14 [facility] [address] [place], [place] [phone] Clinic - [facility] PCP - General 07/16/14 03/11/15 [facility] [address] [place], [place] [phone] Keri Elias PCP - General Family Practice 03/12/15 9 MD Isaías Glez Mitchell PCP - General Family Practice 11/14/18 04/02/20 MD Stevie Karen Veliz, PCP - General Family Medicine 04/03/20 DO [address] [place], [place] [phone] Bebeto Roth MD Orthopedics 07/09/14 [facility] [place] [id number] Astrid Rios PA-C Physician Counter Intelligence Agent Physician Counter Intelligence Agent - 07/09/14 Surgical Francisco Metz Assigned PCP 07/04/19 02/01/20 MD Stevie [address] [place], [place] [phone] Kenton Katz Assigned PCP 02/02/20 08/27/20 MD Feliberto NO INFO AVAILABLE Kenton Katz Assigned Endocrinology 08/28/20 07/23/21 MD Feliberto Provider NO INFO AVAILABLE Karen Veliz, Assigned PCP 08/28/20 DO [address] [place] [address] documented as of this encounter
--- OUTSIDE RECORDS SUMMARY | 2021-12-17 15:11 | XMS_ITS | Encounter Summary ---
:1980 Author Organization [place] Address [address] [facility] [place] [address] Care Team Providers Name Role Phone Unavailable Primary Care Provider Unavailable Encounter Details Date Type Department Care Team Description 05/30/2011 Office Visit-[facility] INTERFACE UMP DEPT Greta Patel v, MD [facility] [address] [place] [address] (Wo rk) Social History Tobacco Use Types Packs/Day Years Used Date Smoking Tobacco: Never Assessed Sex Assigned at Date Recorded Not on file documented as of this encounter Progress Notes Andreas Patel MD - 05/30/2011 2:40 PM CDT Heel Wheeler: Andreas Patel Status: Final Encounter: 30 May 2011 Type: FM Letters Autosend Orders Ondansetron 4 MG Tablet Dispersible;TAKE 1 TABLET BEDTIME; Qty60; R1; Rx. Loratadine 10 MG Tablet;TAKE 1 TABLET DAILY NEEDED; Qty60; R1; Rx. Signature Signed By: Andreas Patel M.D.,Resident; 05/30/2011 6:10 PM AIRCRAFT POWERPLANT REPAIRER. documented in this encounter Plan of Treatment Not on filedocumented as of this encounter Visit Diagnoses Not on filedocumented in this encounter
--- OUTSIDE RECORDS SUMMARY | 2021-12-17 15:11 | XMS_ITS | Encounter Summary ---
:1980 Author Organization [place] Address [address] [facility] [place] [address] Care Team Providers Name Role Phone Andreas Patel MD Primary Care Provider Caitlin Ballesteros MD Primary Care Provider Lisa Dewitt DO Primary Care Provider Bebeto Roth MD Unavailable Astrid Rios PA-C Unavailable [facility] Primary Care Provider + Keri Elias MD Primary Care Provider Unavailable Francisco Metz MD Primary Care Provider [phone] Francisco Metz MD Unavailable [phone] Kenton Katz MD Unavailable Unavailable Karen Veliz DO Primary Care Provider Kenton Katz MD Unavailable Unavailable Karen Veliz DO Unavailable Encounter Details Date Type Department Care Team Description 09/22/2011 Office Visit-P INTERFACE P DEPT Nora Boyer MD [facility] [address] [place] [address] (Wo rk) Social History Tobacco Use Types Packs/Day Years Used Date Smoking Tobacco: Never Alcohol Use Standard Drinks/Week Comments No 0 (1 standard drink = 0.6 oz pure alcoho l) Sex Assigned at Date Recorded Not on file documented as of this encounter Progress Notes Aditi Boyer MD - 09/22/2011 2:00 PM CDT Transit Man: Aditi Boyer Status: Final Encounter: 2011-09-22 14:00:00.000 Type: OB Hospital Note Allergies No Known Drug Allergy. PMH No PMH Listed. PSH No PSH Listed. Personal Hx Care Coordinated By; Tier 0. Current Meds Clotrimazole 1 % Cream ([place]);INSERT 1 APPLICATORFUL INTRAVAGINALLY AT BEDTIME NIGHTLY.; Rx 28-0.8 MG Tablet;TAKE 1 TABLET DAILY.; Rx Ferrous Sulfate 325 (65 Fe) MG Tablet;TAKE 1 TABLET DAILY WITH FOOD.; Rx Ondansetron HCl 4 MG Tablet;TAKE 1 TABLET NEEDED BEFORE MEALS; Rx Omeprazole 20 MG Capsule Delayed Release;TAKE 1 CAPSULE DAILY.; Rx Loratadine 10 MG Tablet;TAKE 1 TABLET DAILY NEEDED.; Rx Ondansetron 4 MG Tablet Dispersible;TAKE 1 TABLET BEDTIME; Rx AAA-MED RECONCILE;per pt.; RPT HydrOXYzine Pamoate 25 MG Capsule;Take 1-2 tabs every 4-6 hours po prn muscle spasms; Rx Loratadine 10 MG Tablet;TAKE 1 TABLET EVERY MORNING NEEDED.; Rx Fluticasone Propionate 50 MCG/ACT Suspension;USE 2 SPRAYS IN EACH NOSTRIL ONCE DAILY; Rx. Active Problems Acne Vulgaris (706.1) Anxiety (300.00) Care Coordinated By; Tier 0 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 Signature Signed By: Aditi Boyer M.D.; 09/26/2011 2:06 PM MANAGER RETAIL STORE. documented in this encounter Plan of Treatment Not on filedocumented as of this encounter Visit Diagnoses Not on filedocumented in this encounter Care Teams Rental Car Ferry Driver Relationship Specialty Start Date End Date Adnreas Patel MD PCP - General 10/05/11 10/07/11 [facility] [address] [place] [address] Caitlin Ballesteros MD PCP - General 10/08/11 08/11/13 Lisa Dewitt DO PCP - General 08/12/13 07/15/14 [facility] [address] [place], [place] [phone] Clinic - [facility] PCP - General 07/16/14 03/11/15 [facility] [address] [place], [place] [phone] Keri Elias PCP - General Family Practice 03/12/15 9 MD Isaías Glez Mitchell PCP - General Family Practice 11/14/18 04/02/20 MD Stevie Karen Veliz PCP - General Family Medicine 04/03/20 DO [address] [place] [phone] Bebeto Roth MD Orthopedics 07/09/[address] [id number] Astrid Rios PA-C Physician Rod Finisher Physician Rod Finisher - 07/09/14 Surgical Francisco Metz Assigned PCP 07/04/19 02/01/20 MD Stevie [address] [place] [id number] Kenton Katz Assigned PCP 02/02/20 08/27/20 MD Feliberto NO INFO AVAILABLE Kenton Katz Assigned Endocrinology 08/28/20 07/23/21 MD Feliberto Provider NO INFO AVAILABLE Karen Veliz, Assigned PCP 08/28/20[address] [place] [address] documented as of this encounter
--- OUTSIDE RECORDS SUMMARY | 2021-12-17 15:11 | XMS_ITS | Encounter Summary ---
:1980 Author Organization [place] Address [facility] [place] [address] Care Team Providers Name Role Phone Caitlin Ballesteros MD Primary Care Provider Reason for Visit Reason Comments Contraception Encounter Details Date Type Department Care Team Description 04/03/2012 Office Visit [facility] Caitlin Ballesteros MD Contraception (Primary Dx); Medicine Clinic [facility] Depo-Provera contraceptive s tatus [address], PRACTICE [address] [place] [address] [place] [address] [phone] (Wo rk) Social History Tobacco Use Types Packs/Day Years Used Date Smoking Tobacco: Passive Smoke Exposure - Never Smoker Alcohol Use Standard Drinks/Week Comments No 0 (1 standard drink = 0.6 oz pure alcoho l) Sex Assigned at Date Recorded Not on file documented as of this encounter Last Filed Vital Signs Vital Sign Reading Time Taken Comments Blood Pressure 112/76 04/03/2012 2:40 PM ROTARY SLICING MACHINE OPERATOR Pulse 106 04/03/2012 2:40 PM ROTARY SLICING MACHINE OPERATOR Temperature 36.4 ??C (97.6 ??F) 04/03/2012 2:40 PM ROTARY SLICING MACHINE OPERATOR Respiratory Rate - - Oxygen Saturation 100% 04/03/2012 2:40 PM ROTARY SLICING MACHINE OPERATOR Inhaled Oxygen Concentration - - Weight 71.9 kg (158 lb 9.6 oz) 04/03/2012 2:40 PM ROTARY SLICING MACHINE OPERATOR Height 157.5 cm (5' 2) 04/03/2012 2:40 PM ROTARY SLICING MACHINE OPERATOR Body Mass Index 29.01 04/03/2012 2:40 PM ROTARY SLICING MACHINE OPERATOR documented in this encounter Patient Instructions Patient InstructionsCaitlin Ballesteros MD - 04/03/2012 2:57 PM CST Thank you for coming to [facility]. If you had lab testing today and your results are reassuring or normal they will be be mailed to you within 7 days. If the lab tests need quick action we will call you with the results. The phone number we will call with results is # [phone] (home) . If this is not the best numberplease call our clinic and change the number. If you need any refills please call your pharmacy and they will contact us. If you have any concerns about today's visit or wish to schedule another appointment please call ouroffice during normal business hours [phone] (8- 5:30 M-F) If you have urgent medical concerns please call [phone] at any time of the day. If you have a medical emergency please call 911 Again thank you for choosing [facility] and please let us know how we can best partner with youto improve your and your family's health. RY SLICING MACHINE OPERATOR documented in this encounter Progress Notes Keri Elias MD - 04/03/2012 3:06 PM CST Preceptor Attestation: Patient's case reviewed and discussed with resident. I agree with written assessment and plan of care Supervising Physician: Keri Elias MD MD [facility] Medicine RY SLICING MACHINE OPERATOR Caitlin Ballesteros MD - 04/03/2012 2:48 PM CST HPI Pt is here to start depo shot. Was using pills but has been forgetting. So wants to restart depo. Previously used depo about 7 yrs back (1 shot), no adverse effects. LMP - 04/02/2012. No unprotected intercourse since a month. Review of Systems Constitutional: Negative for fever and weight loss. Eyes: Negative for blurred vision. Respiratory: Negative for cough and shortness of breath. Cardiovascular: Negative for chest pain. Gastrointestinal: Negative for nausea, vomiting and abdominal pain. Skin: Negative for rash. Neurological: Negative for dizziness and headaches. Psychiatric/Behavioral: Negative for depression. Filed Vitals: 04/03/12 1440 BP: 112/76 Pulse: 106 Temp: 97.6 ??F (36.4 ??C) SpO2: 100% Patient Active Problem List Diagnosis ??? Adolescent idiopathic scoliosis ??? Health Skilled Nursing ??? Acne vulgaris ??? Anxiety ??? Congenital scoliosis ??? Scoliosis ??? Depo-Provera contraceptive status Physical Exam Constitutional: She is oriented to person, place, and time and well-developed, well-nourished, and in no distress. Neck: Normal range of motion. Cardiovascular: Normal rate, regular rhythm and normal heart sounds. Pulmonary/Chest: Effort normal and breath sounds normal. No respiratory distress. Abdominal: Soft. Bowel sounds are normal. There is no tenderness. Neurological: She is alert and oriented to person, place, and time. Psychiatric: Mood, memory, affect and judgment normal. Azul was seen today for contraception. Diagnoses and associated orders for this visit: Contraception - HCG Qualitative Urine (UPT) (Narda) -negative - INJECTION INTRAMUSCULAR OR SUB-Q - medroxyPROGESTERone (DEPO-PROVERA) injection 150 mg (Charge) - medroxyPROGESTERone (DEPO-PROVERA) 150 MG/ML injection; Inject 1 mL into the muscle every 3 months. RY SLICING MACHINE OPERATOR documented in this encounter Plan of Treatment Not on filedocumented as of this encounter Procedures Procedure Name Priority Date/Time Associated Diagnosis Comme nts HCG QUALITATIVE Routine 04/03/2012 3:04 PM Contraception Resul ts for this URINE (LABDAQ) ROTARY SLICING MACHINE OPERATOR procedure are in the results section. documented in this encounter Results HCG Qualitative Urine (UPT) (Narda) (04/03/2012 3:04 PM ROTARY SLICING MACHINE OPERATOR) P athologist Signature HCG Qual Urine NEGATIVE [facility] Specimen Anatomical Collection Method Collection Time Receive d Time (Source) Location / / Volume Laterality Urine specimen 04/03/2012 3:04 PM 013 3:04 (specimen) ROTARY SLICING MACHINE OPERATOR PM ROTARY SLICING MACHINE OPERATOR Caitlin Ballesteros MD LAB - LABDAQ Performing Organization Address City/State/ZIP Code Phon e Number [facility] [address] [place] [phone] [facility] [address] [place] [phone] documented in this encounter Visit Diagnoses Diagnosis Contraception - Primary Unspecified contraceptive management Depo-Provera contraceptive status Surveillance of other previously prescri bed contraceptive method documented in this encounter Care Teams Tub Chucker Relationship Specialty Start Date End Date Caitlin Ballesteros MD PCP - General 10/08/11 08/11/13 documented as of this encounter
--- OUTSIDE RECORDS SUMMARY | 2021-12-17 15:11 | XMS_ITS | Encounter Summary ---
:1980 Author Organization [place] Address [address] [facility] [place] [address] Care Team Providers Name Role Phone Caitlin Ballesteros MD Primary Care Provider Reason for Visit Reason Comments Pain Bladder frequency, urgency, pain x1 week; took Uristat once per day Encounter Details Date Type Department Care Team Description 06/21/2012 Office Visit [facility] Caitlin Ballesteros MD UTI (urinary tract Medicine Clinic [facility] infection) (Primary [address], PRACTICE Dx) [address] [facility] [place] [address] [phone] (Wo rk) Social History Tobacco Use Types Packs/Day Years Used Date Smoking Tobacco: Passive Smoke Exposure - Never Smoker Alcohol Use Standard Drinks/Week Comments No 0 (1 standard drink = 0.6 oz pure alcoho l) Sex Assigned at Date Recorded Not on file documented as of this encounter Last Filed Vital Signs Vital Sign Reading Time Taken Comments Blood Pressure 119/79 06/21/2012 1:55 PM CDT Pulse 104 06/21/2012 1:55 PM CDT Temperature 36.5 ??C (97.7 ??F) 06/21/2012 1:55 PM CDT Respiratory Rate - - Oxygen Saturation 98% 06/21/2012 1:55 PM CDT Inhaled Oxygen Concentration - - Weight 73.8 kg (162 lb 9.6 oz) 06/21/2012 1:55 PM CDT Height 158.8 cm (5' 2.5) 06/21/2012 1:55 PM CDT Body Mass Index 29.27 06/21/2012 1:55 PM CDT documented in this encounter Patient Instructions Patient InstructionsCaitlin Ballesteros MD - 06/21/2012 2:31 PM CDT Thank you for coming to [facility]. Lab Testing: If you had lab testing today and your results are reassuring or normal they will be mailed to you or sent through [employer] within 7 days. If the lab tests need quick action we will call you with the results. The phone number we will call with results is # [phone] (home) . If this is not the best numberplease call our clinic and change the number. Medication Refills: If you need any refills please call your pharmacy and they will contact us. If you need to curing pickling packer your refill at a new pharmacy, please contact the new pharmacy directly. The new pharmacy will help you get your medications transferred faster. Scheduling: If you have any concerns about today's visit or wish to schedule another appointment please call ouroffice during normal business hours [phone] (8- 5:00 M-F) Medical Concerns: If you have urgent medical concerns please call [phone] at any time of the day. If you have a medical emergency please call 911. Again thank you for choosing [facility] and please let us know how we can best partner with you to improve you and your family's health. documented in this encounter Progress Notes Jazz Duncan MD - 06/21/2012 2:35 PM CDT Preceptor Attestation: Patient's case reviewed and discussed with resident. I agree with written assessment and plan of care Supervising Physician: Jazz Duncan MD MD [facility] Caitlin Ballesteros MD - 06/21/2012 2:17 PM CDT HPI Azul Garg is a 31 year old female who presents for the new concern(s) of: 1. Urinary infection: pt is having urinary symptoms since a week, having urgency, frequency and burning sensation. Took uristat from OTC for 3 days and that helped her with burning a little bit. She has been taking fluids with no relief in her symptoms. Some nausea, no vomiting or fever or back pain. Patient Active Problem List Diagnosis ??? Adolescent idiopathic scoliosis ??? Health Long Term ??? Acne vulgaris ??? Anxiety ??? Congenital scoliosis ??? Scoliosis ??? Depo-Provera contraceptive status Current Outpatient Prescriptions Medication Sig ??? ciprofloxacin (CIPRO) 250 MG tablet Take 1 tablet by mouth 2 times daily for 5 days. ??? medroxyPROGESTERone (DEPO-PROVERA) 150 MG/ML injection Inject 1 mL into the muscle every 3 months. ??? benzoyl peroxide 5 % gel Use over the areas everyday 1-2 times/daily. Please use it along with other ointment. ??? minocycline (DYNACIN) 100 MG tablet Take 1 tablet by mouth daily. ??? tretinoin (RETIN-A) 0.025 % cream Apply topically At Bedtime. Spread a pea size amount into affected area. Use sunscreen SPF>20. ??? fluticasone (FLONASE) 50 MCG/ACT nasal spray [place] 2 sprays into both nostrils daily. ??? loratadine (CLARITIN) 10 MG tablet Take 1 tablet by mouth daily as needed. Allergies Allergen Reactions ??? Seasonal Allergies Results for orders placed in visit on 06/21/12 (from the past 24 hour(s)) URINALYSIS, MICRO IF (LABDAQ) Component Value Range Specific [place] Urine 1.010 1.005 - 1.030 pH Urine 6.5 4.5 - 8.0 Leukocyte Esterase UR 500/ul 2+ (*) Nitrite Urine neg Protein UR neg Glucose Urine norm Ketones Urine neg Urobilinogen mg/dL norm Bilirubin UR neg Blood UR neg URINE MICROSCOPIC (LABDAQ) Component Value Range WBC Urine 5-10 RBC Urine None Epithelial Cells UR 2-5 Mucous Urine None Casts Urine None Crystal Urine None Bacteria Wet Prep Moderate Review of Systems: CONSTITUTIONAL: no fatigue, no unexpected change in weight RESP: no significant cough, no shortness of breath CV: no chest pain, no palpitations, no new or worsening peripheral edema GI: +ve nausea, no vomiting, no constipation, no diarrhea Physical Exam: Filed Vitals: 06/21/12 1355 BP: 119/79 Pulse: 104 Temp: 97.7 ??F (36.5 ??C) TempSrc: Oral Height: 5' 2.5 (158.8 cm) Weight: 162 lb 9.6 oz (73.755 kg) SpO2: 98% Body mass index is 29.27 kg/(m^2). GENERAL: healthy, alert, well nourished, well hydrated, no distress RESP: lungs clear to auscultation - no rales, no rhonchi, no wheezes CV: regular rates and rhythm, normal S1 S2 BACK: no CVA tenderness. Assessment and Plan Azul was seen today for pain. Diagnoses and associated orders for this visit: Uti (urinary tract infection) UA +ve in clinic. Pt had E.Coli infection in 10/2009 resistant to Septra. Hence will treat her with Cipro. Also pt already took Uristat for 3 days, hence would not prescribe further. To drink plenty of fluids. Discussed about cranberry juice. And also to maintain good genital hygiene. - Urinalysis, Micro If (UA) ([facility]) - +ve - Urine culture - Urine Microscopic (UA) ([facility]) - Cipro 250 mg BID for 5 days. - to call if symptoms not resolving or develops fever, back pain or vomiting. Options for treatment and follow-up care were reviewed with the patient and/or guardian. Azul Solis Smart and/or guardian engaged in the decision making process and verbalized understanding of the options discussed and agreed with the final plan. Caitlin Ballesteros MD documented in this encounter Plan of Treatment Not on filedocumented as of this encounter Procedures Procedure Name Priority Date/Time Associated Comments Diagnosis URINE MICROSCOPIC Routine 06/21/2012 2:16 PM UTI (urinary trac t Results for this (LABDAQ) CDT infection) procedure are i n the results section. URINALYSIS, MICRO IF Routine 06/21/2012 2:08 PM UTI (urinary t ract Results for this (LABDAQ) CDT infection) procedure are i n the results section. URINE CULTURE Routine 06/21/2012 2:08 PM UTI (urinary tract Re sults for this CDT infection) procedure are i n the results section. documented in this encounter Results Urine Microscopic (UA) ([facility]) (06/21/2012 2:16 PM CDT) Analysis Performed At Patho logist Time Signature WBC Urine 5-10 /hpf [facility] RBC Urine None /hpf [facility] Epithelial 2-5 /lpf [facility] Cells UR CLINIC LAB Mucous Urine None [facility] Casts Urine None /lpf [facility] Crystal Urine None /lpf [facility] Bacteria Wet Moderate [facility] Prep CLINIC LAB Specimen Anatomical Collection Method Collection Time Receive d Time (Source) Location / / Volume Laterality Urine specimen 06/21/2012 2:16 PM 013 2:16 (specimen) CDT PM CDT Jazz Duncan MD LAB - LABDAQ Performing Organization Address City/State/ZIP Code Phon e Number [facility] [address] [place] [phone] LABDAQ [facility] [address] [place] [phone] Urine culture (06/21/2012 2:08 PM CDT) Component Value Ref Test Analysis Performed At Patholo gist Range Method Time Signature Specimen Midstream Urine [facility] Special Specimen received [facility] Requests in preservative MICROBIOLOGY Culture Micro 10 to 50,000 colonies/mL Mixed gram negative and posi tive teresa [facility] Multiple species present, probable perineal contamination. MICROBIOLOGY Susceptibility testing not routinely done Micro Report FINAL 06/22/2012 [facility] Status MICROBIOLOGY Specimen Anatomical Collection Method Collection Time Receive d Time (Source) Location / / Volume Laterality Urine specimen 06/21/2012 2:08 PM 013 4:41 (specimen) CDT PM CDT Caitlin Ballesteros MD LAB - MICRO GENERAL ORDERABL ES Performing Organization Address City/State/ZIP Code Phon e Number [facility] [address] [place] [address] [facility] MICROBIOLOGY (ABNORMAL) Urinalysis, Micro If (UA) ([facility]) (06/21/2012 2:08 PM CDT) [facility] Method Time Signature Specific [place] 1.010 1.005 [facility] U[facility] 1.030 CL[facility] LAB pH Urine 6.5 4.5 - 8.0 [facility] Leukocyte 500/ul 2+ [facility] Esterase UR (A) CLINIC LAB Nitrite Urine neg [facility] Protein UR neg [facility] CLINIC LAB Glucose Urine norm [facility]IC LAB Ketones Urine neg [facility] Urobilinogen norm [facility] mg/dL CLINIC LAB Bilirubin UR neg [facility] Blood UR neg [facility] Specimen Anatomical Collection Method Collection Time Receive d Time (Source) Location / / Volume Laterality Urine specimen 06/21/2012 2:08 PM 013 2:08 (specimen) CDT PM CDT Caitlin Ballesteros MD LAB - LABDAQ Performing Organization Address City/State/ZIP Code Phon e Number [facility] [address] [place] [phone] LABDAQ [facility] [address] [place] [phone] documented in this encounter Visit Diagnoses Diagnosis UTI (urinary tract infection) - Primary Urinary tract infection, site not specif ied documented in this encounter Care Teams Rn Mds Relationship Specialty Start Date End Date Caitlin Ballesteros MD PCP - General 10/08/11 08/11/13 documented as of this encounter
--- OUTSIDE RECORDS SUMMARY | 2021-12-17 15:11 | XMS_ITS | Encounter Summary ---
:1980 Author Organization [place] Address [facility] [place] [address] Care Team Providers Name Role Phone Caitlin Ballesteros MD Primary Care Provider Reason for Visit Reason Comments Minor Procedure Oneida has mole/skintag on t he left shoulder and left outer knee Encounter Details Date Type Department Care Team Description 11/22/2012 Office Visit [facility], [facility] Anthony Glez MD thigh (Primary Dx) [address], [address] [place], [place] [address] Social History Tobacco Use Types Packs/Day Years Used Date Smoking Tobacco: Passive Smoke Exposure - Never Smoker Alcohol Use Standard Drinks/Week Comments No 0 (1 standard drink = 0.6 oz pure alcoho l) Sex Assigned at Date Recorded Not on file documented as of this encounter Last Filed Vital Signs Vital Sign Reading Time Taken Comments Blood Pressure 112/72 11/22/2012 1:06 PM CDT Pulse 91 11/22/2012 1:06 PM CDT Temperature 36.6 ??C (97.9 ??F) 11/22/2012 1:06 PM CDT Respiratory Rate - - Oxygen Saturation 99% 11/22/2012 1:06 PM CDT Inhaled Oxygen Concentration - - Weight 72.8 kg (160 lb 6.4 oz) 11/22/2012 1:06 PM CDT Height 160 cm (5' 3) 11/22/2012 1:06 PM CDT Body Mass Index 28.41 11/22/2012 1:06 PM CDT documented in this encounter Patient Instructions Patient InstructionsCaitlin Ballesteros MD - 11/22/2012 1:53 PM CDT Skin (Cutaneous) Biopsy What is a skin biopsy? A skin biopsy is the removal of a small piece of skin for lab tests. It may be done to help diagnosea problem with the skin. Another name for this procedure is cutaneous biopsy. When is it used? A skin biopsy will help your healthcare provider make a diagnosis of your problem. For example: You may have an internal disease that a skin biopsy may explain. You may have a skin disease or cancer. Your skin may have become discolored. Your skin may be inflamed. Alternatives to this procedure include: to proceed with treatment without a firm diagnosis to choose not to have treatment, recognizing the risks of your condition to take a watchful approach and reevaluate the lesion or disorder at a future time. When should I call my healthcare provider? Call your provider right away if: You have bleeding that cannot be stopped by putting pressure on the wound. Your wound becomes red or has pus or you develop a fever (signs of infection). You have significant pain that is not controlled with ibuprofen or tylenol. Wound Care 1. Keep it covered for the first 2-3 days with a band aid, or if large, a small piece of gauze with tape. 2. Apply a thin film of vaseline over the area to keep it mildly moist and prevent scab formation. 3. Change your bandaid daily. 4. As you heal, the new skin will be very sensitive to sun - please protect your healing wound by covering up and using sunscreen. 5. Results will be mailed or called to you. It can take up to 10 days to get biopsy results back. Ifyou do not hear from us, please call us at [phone] and let us know that you haven't received your results. Thank you for coming to [facility]. Lab Testing: If you had lab testing today and your results are reassuring or normal they will be mailed to you or sent through [employer] within 7 days. If the lab tests need quick action we will call you with the results. The phone number we will call with results is # [phone] (home) . If this is not the best numberplease call our clinic and change the number. Medication Refills: If you need any refills please call your pharmacy and they will contact us. If you need to order picker/assembler your refill at a new pharmacy, please contact the new pharmacy directly. The new pharmacy will help you get your medications transferred faster. Scheduling: If you have any concerns about today's visit or wish to schedule another appointment please call ouroffice during normal business hours [phone] (8- 5:00 M-F) Medical Concerns: If you have urgent medical concerns please call [phone] at any time of the day. If you have a medical emergency please call 911. Again thank you for choosing [facility] and please let us know how we can best partner with you to improve you and your family's health. documented in this encounter Progress Notes Anthony Elias MD - 11/22/2012 2:08 PM CDT Preceptor Attestation: Patient's case reviewed and discussed with resident, I examined and I was present for and supervisedthe entire procedure. I agree with written assessment and plan of care Supervising Physician: Anthony Elias MD [facility] Caitlin Ballesteros MD - 11/22/2012 1:46 PM CDT [facility] Skin Biopsy Procedure Note Azul Garg is a patient of Caitlin Alexandra here for dermatofibroma Consent: Affirmation of informed consent was signed and scanned into the medical record. Risks, benefits and alternatives were discussed. Patient's questions were elicited and answered. Procedure safety checklist was completed: Yes Time Out (Pause for the Cause) completed: Yes Preoperative Diagnosis: Dermatofibroma Location: Left lower thigh Size: 3 mm Postoperative Diagnosis: same Technique: Skin prep Betadine Anesthesia 0.3 cc 1% lidocaine, with epi Biopsy size 3 mm Biopsy taken via (shave, punch, incisional) shave Hemostasis Drysol EBL: negligible Complications: No Tolerance: Pt tolerated procedure well and was in stable condition. Pathology sent Yes Instructions: Pt should keep dressing in place for 24 hours, then may change and apply antibiotic ointment and simple bandage. May shower after 24 hours. Pt was instructed to call if bleeding, severe pain or foul smell. Follow up only if unimproved. Resident: Caitlin Ballesteros MD Faculty: Anthony Elias MD present for and supervised this entire procedure. documented in this encounter Miscellaneous Notes Initial Assessments - Lisa Non-Provider - 11/28/2012 1:21 PM CDT documented in this encounter Plan of Treatment Not on filedocumented as of this encounter Procedures Procedure Name Priority Date/Time Associated Diagnosis Comme nts HC SHAV SKIN Routine 11/22/2012 1:51 PM Dermatofibroma of left LESION CDT thigh TRUNK/ARM/LEG <=0.5 CM SURGICAL PATHOLOGY Routine 11/22/2012 1:30 PM Dermatofibroma o f left Results for this EXAM CDT thigh procedure are i n the results section. documented in this encounter Results Surgical pathology exam (11/22/2012 1:30 PM CDT) Component Value Ref Test Analysis Performed At [facility] gist Range Method Time Signature Copath Report Patient Name: AZUL MCCLELLAN MR#: [id number] Specimen #: [id number] Collected: 11/22/2012 Received: 11/23/2012 Reported: 11/26/2012 13:48 Ordering Phy(s): ANTHONY ELIAS SPECIMEN(S): Skin, left lower thigh FINAL DIAGNOSIS: Skin, left lower thigh, biopsy: ? 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 Electronically signed out by: Mercedes Acevedo M.D. CLINICAL HISTORY: 32 year old female; dermatofibroma of left thigh. GROSS: One specimen is received labeled with the patient's name and hospital number. The specimen is designated left lower thigh. ??The specime n consists of an unoriented irregular amthew tissue fragment measuring 0.5 cm in greatest dimension. ??Bisected and entirely submitted in one casette. ??Tricia Henry MD/ MICROSCOPIC: Microscopic evaluation is performed. Ajith Acevedo MD/romulo 11/26/12 TESTING LAB LOCATION: [facility] [address] [address] COLLECTION SITE: Client: [facility] Location: FA (B) Specimen (Source) Anatomical Collection Method Collection Time Re ceived Time Location / / Volume Laterality Lower limb 11/22/2012 1:30 11/23/2012 8 :36 structure (body PM CDT AM CDT structure) Anthony Elias MD [facility] - [facility] Organization Address City/State/ZIP Code Phon e Number [place] documented in this encounter Visit Diagnoses Diagnosis Dermatofibroma of left thigh - Primary Benign neoplasm of skin of lower limb, i ncluding hip documented in this encounter Care Teams Superintendent Laundry Relationship Specialty Start Date End Date Caitlin Ballesteros MD PCP - General 10/08/11 08/11/13 documented as of this encounter
--- OUTSIDE RECORDS SUMMARY | 2021-12-17 15:11 | XMS_ITS | Encounter Summary ---
:1980 Author Organization [place] Address [address] [facility] [place] [address] Care Team Providers Name Role Phone Andreas Patel MD Primary Care Provider Caitlin Ballesteros MD Primary Care Provider Lisa Dewitt DO Primary Care Provider Bebeto Roth MD Unavailable Astrid Rios PA-C Unavailable [facility] Primary Care Provider + Keri Elias MD Primary Care Provider Unavailable Francisco Metz MD Primary Care Provider [phone] Francisco Metz MD Unavailable [phone] Kenton Katz MD Unavailable Unavailable Karen Veliz DO Primary Care Provider Kenton Katz MD Unavailable Unavailable Karen Veliz DO Unavailable Encounter Details Date Type Department Care Team Description 10/06/2011 Office Visit-P INTERFACE P DEPT Greta Patel v, MD [facility] [address] [place], [place] [phone] (Wo rk) Social History Tobacco Use Types Packs/Day Years Used Date Smoking Tobacco: Never Alcohol Use Standard Drinks/Week Comments No 0 (1 standard drink = 0.6 oz pure alcoho l) Sex Assigned at Date Recorded Not on file documented as of this encounter Progress Notes Andreas Patel MD - 10/06/2011 1:20 PM CDT Supervisor Lead Burning: Jason Patelurav Status: Signed Encounter: 2011-10-06 13:20:00.000 Type: FM Visit Reason For Visit This 31 year patient presents for {{{[ ]}}}[ preventive health visit ][ diabetes visit ]. {{{Councilperson used this visit; [ Hmong ][ Mauritanian ][ Citizen Of [place] ][ Oromo ][ Amharic ][ Other: ]}}} {{{Name of spanish medical interpreter [ ]. Councilperson's Phone number: [ [phone] ][ [phone] ][ [phone] ][ [phone] ]-[ ]-[ ] }}} {{{Minor without Guardian. Verbal consent obtained from [ Mother ] [ Father ] [ ] by front desk receptionist staff [ ]. Contact number: [ [phone] ] [ [phone] ] [ [phone] ][ [phone] ] [ ] }}} {{{PHQ2 completed and was [ negative ][ positive and so PHQ9 was given. ]}}} {{{PHQ2 not completed because patient [ declined ][ is under 13. ]}}} {{{[ PHQ 9 was given to the patient because depression or Major Depression is on the problem list ]}}} Allergy List reviewed: [ Current ]{{{Updated by adding [ ].}}} Immunizations reviewed: [ Up to date ]{{{Needs [ ]}}} {{{If adult, last Td [ ]}}} {{{Immunizations not in record requested that patient [ bring in immunization record. ] [ sign FRANKY for records. ]}}} {{{[ Patient is at risk for influenza and should receive flu shot. ] [ Patient has had flu shot. ]}}} Pharmacy and Medication list reviewed with patient and was [ up to date. ][ updated. ][ Unable to review medication list as patient doesn't know her medications: Advised patient to bring all medications to each visit. ]. Allergies No Known Drug Allergy. Current Meds Clotrimazole 1 % Cream ([place]);INSERT [...] MG Tablet Dispersible;TAKE 1 TABLET BEDTIME; Rx Loratadine 10 MG Tablet;TAKE 1 TABLET EVERY MORNING NEEDED.; Rx Fluticasone Propionate 50 MCG/ACT Suspension;USE 2 SPRAYS IN EACH NOSTRIL ONCE DAILY; Rx AAA-MED RECONCILE;per pt.; RPT HydrOXYzine Pamoate 25 MG Capsule;Take 1-2 tabs every 4-6 hours po prn muscle spasms; Rx. Active Problems Acne Vulgaris (706.1) Anxiety (300.00) Care Coordinated By; Tier 0 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 Results US OB BIOPHYS PROFILE W/O NST 30 Sep 2011 02:02 PM - US OB BIOPHYS PROFILE W/O NST Principal Result Councilperson: OSWALDO ARRIAGA PROFESSOR&& Biophysical profile. 09/30/11. Comparisons: Obstetric ultrasound from 04/28/2011. HISTORY: Post dates. FINDINGS: breathing movements: 2/2 Gross body movements: 2/2 tone: 2/2 Amniotic fluid volume: 2/2 Total: 8/8 Amniotic fluid index: 12.8 cm heart rate: 163 beats per minute Placenta location: Anterior IMPRESSION: Normal biophysical profile. I have personally reviewed the image and initial interpretation and agree with the findings. Performed at: [facility]. Plan {{{Patient participated in and [ agrees ][ disagrees ] with today's plan.}}} {{{Patient's family participated in and [ agree ][ disagree ] with today's plan.}}} {{{Patient and family participated in and [ agree ][ disagree ] with today's plan.}}}. Signature Signed By: Andreas Patel M.D.,Resident; 10/10/2011 11:03 AM [employer] BI ARCHITECT. documented in this encounter Plan of Treatment Not on filedocumented as of this encounter Visit Diagnoses Not on filedocumented in this encounter Care Teams Web Ui Developer Relationship Specialty Start Date End Date Andreas Patel MD PCP - General 10/05/11 10/07/11 [facility] [address] [place], [place] [phone] Caitlin Ballesteros MD PCP - General 10/08/11 08/11/13 Lisa Dewitt DO PCP - General 08/12/13 07/15/14 [facility] [address] [place], [place] [phone] Clinic - [facility] PCP - General 07/16/14 03/11/15 [facility] [address] [place] [address] (Fax) Keri Elias PCP - General Family Practice 03/12/15 9 MD Isaías Glez Mitchell PCP - General Family Practice 11/14/18 04/02/20 MD Stevie Karen Veliz, PCP - General Family Medicine 04/03/20 [address] [place] [address] (Fax) Bebeto Roth MD Orthopedics 07/09/[address] [place], [place] [address] Astrid Rios PA-C Physician Treasury Associate Physician Treasury Associate - 07/09/14 Surgical Francisco Metz Assigned PCP 07/04/19 02/01/20 MD Stevie [address] [place] [address] Kenton Katz Assigned PCP 02/02/20 08/27/20 MD Feliberto NO INFO AVAILABLE Kenton Katz Assigned Endocrinology 08/28/20 07/23/21 MD [place]erto Provider NO INFO AVAILABLE Karen Veliz, Assigned PCP 08/28/20 DO [facility] [address], [place] [address] documented as of this encounter
--- OUTSIDE RECORDS SUMMARY | 2021-12-17 15:11 | XMS_ITS | Encounter Summary ---
:1980 Author Organization [place] Address [address] [facility] [address] Care Team Providers Name Role Phone Andreas Patel MD Primary Care Provider Caitlin Ballesteros MD Primary Care Provider Lisa Dewitt DO Primary Care Provider Bebeto Roth MD Unavailable Astrid Rios PA-C Unavailable [facility] Primary Care Provider + Keri Elias MD Primary Care Provider Unavailable Francisco Metz MD Primary Care Provider [phone] Francisco Metz MD Unavailable [phone] Kenton Katz MD Unavailable Unavailable Karen Veliz DO Primary Care Provider Kenton Katz MD Unavailable Unavailable Karen Veliz DO Unavailable Encounter Details Date Type Department Care Team Description 09/26/2011 Office Visit-[facility] INTERFACE P DEPT Social History Tobacco Use Types Packs/Day Years Used Date Smoking Tobacco: Never Alcohol Use Standard Drinks/Week Comments No 0 (1 standard drink = 0.6 oz pure alcoho l) Sex Assigned at Date Recorded Not on file documented as of this encounter Progress Notes SY UMP ULTRASOUND - 09/26/2011 2:07 PM CDT Comber Fixer: ADOLFO CURRY Status: Unsigned Encounter: 2011-09-26 14:07:00.000 Type: OB Hospital Note Allergies No Known Drug Allergy. PMH No PMH Listed. PSH No PSH Listed. Personal Hx Care Coordinated By; Tier 0. Current Meds Fluticasone Propionate 50 MCG/ACT Suspension;USE 2 SPRAYS IN EACH NOSTRIL ONCE DAILY; Rx Loratadine 10 MG Tablet;TAKE 1 TABLET EVERY MORNING NEEDED.; Rx HydrOXYzine Pamoate 25 MG Capsule;Take 1-2 tabs every 4-6 hours po prn muscle spasms; Rx AAA-MED RECONCILE;per pt.; RPT Clotrimazole 1 % Cream ([place]);INSERT 1 APPLICATORFUL INTRAVAGINALLY AT BEDTIME NIGHTLY.; Rx 28-0.8 MG Tablet;TAKE 1 TABLET DAILY.; Rx Ferrous Sulfate 325 (65 Fe) MG Tablet;TAKE 1 TABLET DAILY WITH FOOD.; Rx Ondansetron 4 MG Tablet Dispersible;TAKE 1 TABLET BEDTIME; Rx Loratadine 10 MG Tablet;TAKE 1 TABLET DAILY NEEDED.; Rx Ondansetron HCl 4 MG Tablet;TAKE 1 TABLET NEEDED BEFORE MEALS; Rx Omeprazole 20 MG Capsule Delayed Release;TAKE 1 CAPSULE DAILY.; Rx. Active Problems Acne Vulgaris (706.1) Anxiety (300.00) Care Coordinated By; Tier 0 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 documented in this encounter Plan of Treatment Not on filedocumented as of this encounter Visit Diagnoses Not on filedocumented in this encounter Care Teams Orchid Hand Relationship Specialty Start Date End Date Andreas Patel MD PCP - General 10/05/11 10/07/11 [facility] [address] [place] [address] Caitlin Ballesteros MD PCP - General 10/08/11 08/11/13 Lisa Dewitt DO PCP - General 08/12/13 07/15/14 [facility] [address] [place], [place] [phone] Clinic - [place], PCP - General 07/16/14 03/11/15 [facility] [address] [place] [address] Keri Elias PCP - General Family Practice 03/12/15 9 MD Isaías Glez Mitchell PCP - General Family Practice 11/14/18 04/02/20 MD Stevie Karen Veliz, PCP - General Family Medicine 04/03/20 DO [address] [place], [place] [phone] Bebeto Roth MD Orthopedics 07/09/[address] [facility] [place] [address] Astrid Rios PA-C Physician Digital Media Director Physician Digital Media Director - 07/09/14 Surgical Francisco Metz Assigned PCP 07/04/19 02/01/20 MD Stevie [address] [place] [address] Kenton Katz Assigned PCP 02/02/20 08/27/20 MD Feliberto NO INFO AVAILABLE Kenton Katz Assigned Endocrinology 08/28/20 07/23/21 MD [place] Provider NO INFO AVAILABLE Karen Veliz, Assigned PCP 08/28/20 DO [address] [place] [address] documented as of this encounter
--- OUTSIDE RECORDS SUMMARY | 2021-12-17 15:11 | XMS_ITS | Encounter Summary ---
:1980 Author Organization [place] Address [facility]ly [facility] [place] [address] Care Team Providers Name Role Phone Caitlin Ballesteros MD Primary Care Provider Reason for Referral Specialty Diagnoses / Procedures Referred By Contact Refer red To Contact Caitlin Ballesteros MD [address] [place], [place] [address] Referral ID Status Reason Start Date Expiration Date Visits Requ ested Visits Authorized [facility] Reason for Visit Reason Comments Knee Pain both knees x 3weeks-no injur y Encounter Details Date Type Department Care Team Description 12/22/2011 Office Visit [facility] Caitlin Ballesteros MD Knee pain, bilateral (Primary Dx); Medicine Clinic [facility] Contraception management; [address], PRACTICE Acne vulgaris [address] [facility] [place] [address] [phone] (Wo rk) Social History Tobacco Use Types Packs/Day Years Used Date Smoking Tobacco: Never Alcohol Use Standard Drinks/Week Comments No 0 (1 standard drink = 0.6 oz pure alcoho l) Sex Assigned at Date Recorded Not on file documented as of this encounter Last Filed Vital Signs Vital Sign Reading Time Taken Comments Blood Pressure 115/85 12/22/2011 2:06 PM [facility] Pulse 97 12/22/2011 2:06 PM [facility] Temperature 36.9 ??C (98.4 ??F) 12/22/2011 2:06 PM [facility] Respiratory Rate 16 12/22/2011 2:06 PM [facility] Oxygen Saturation - - Inhaled Oxygen Concentration - - Weight 68.9 kg (152 lb) 12/22/2011 2:06 PM [facility] Height 156.8 cm (5' 1.75) 12/22/2011 2:06 PM [facility] Body Mass Index 28.03 12/22/2011 2:06 PM [facility] SERVICES ASST documented in this encounter Patient Instructions Patient InstructionsCaitlin Ballesteros MD - 12/22/2011 6:38 PM CST Thank you for coming to [facility]. If you had lab testing today and your results are reassuring or normal they will be be mailed to you within 7 days. If the lab tests need quick action we will call you with the results. The phone number we will call with results is # [phone] (home) . If this is not the best numberplease call our clinic and change the number. If you need any refills please call your pharmacy and they will contact us. If you have any concerns about today's visit or wish to schedule another appointment please call ouroffice during normal business hours [phone] (8- 5:30 M-F) If you have urgent medical concerns please call [phone] at any time of the day. If you have a medical emergency please call 911 Again thank you for choosing [facility] and please let us know how we can best partner with youto improve your and your family's health. Referred to [facility] [phone] Referral faxed, [facility] to contact patient directly to schedule [facility] documented in this encounter Progress Notes Keri Elias MD - 12/22/2011 3:55 PM CST Preceptor Attestation: Patient's case reviewed and discussed with resident and I examined the patient. I agree with writtenassessment and plan of care Supervising Physician: Keri Elias MD MD [facility] ICAL SERVICES [facility]ST Caitlin Ballesteros MD - 12/22/2011 2:25 PM CST HPI Azul Garg is a 31 year old female with a significant past medical history of scoliosis, acne, who presents for the new concern(s) of: 1. B/l Knee pain x 3 weeks. She delivered her baby girl 21/2 months back but did not come for post- check. She states that she is having pain in both knees while kneeling down for about 3 weeks. Pain is on and off, and is not present when she is sitting or standing. It is only present while sitting on her knees. No redness, swelling or warmth. No rash or lesion over the knees. Pain alternates between two knees and is a 3-4/10 when present. Pain is relived on its own and has not used any meds for that. Pt has looked up her symptoms in net and thinks that it is due to bursitis. 2. Contraception - pt has been using condoms after her delivery. Has used pills before and would like to re-start that. Does not like the idea of IUD. 3. Acne - pt. had severe acne for which she was on daily antibiotics before being . she usedto use Minocycline 100 mg daily with Tretinoin cream. Used benzoyl peroxide during her teens but hasnot used in long time. Her symptoms were better during but she is already having lesions in her chest which has been always the worse spot than her face. Pt is worried that acne would flare up now and would like to go back on Minocycline. Patient Active Problem List Diagnoses ??? Adolescent idiopathic scoliosis ??? , subsequent ??? Health Skilled Nursing ??? Acne vulgaris ??? Anxiety ??? Congenital scoliosis ??? Scoliosis Current Outpatient Prescriptions Medication Sig ??? levonorgestrel-ethinyl estradiol (SEASONALE) 0.15-0.03 MG per tablet Take 1 tablet by mouth daily. ??? minocycline (DYNACIN) 100 MG tablet Take 1 tablet by mouth daily. ??? benzoyl peroxide 5 % gel Use over the areas everyday 1-2 times/daily. Please use it along with other ointment. ??? tretinoin (RETIN-A) 0.025 % cream Apply topically At Bedtime. Spread a pea size amount into affected area. Use sunscreen SPF>20. ??? fluticasone (FLONASE) 50 MCG/ACT nasal spray [place] 2 sprays into both nostrils daily. ??? loratadine (CLARITIN) 10 MG tablet Take 1 tablet by mouth daily as needed. ??? acetaminophen (TYLENOL) 325 MG tablet Take 2 tablets by mouth every 4 hours as needed for pain or fever (fever greater than 102??F). ??? ibuprofen (ADVIL,MOTRIN) 400-800 mg tablet Take 1-2 tablets by mouth every 6 hours as needed (cramping). ??? DISCONTD: ondansetron (ZOFRAN-ODT) 4 MG disintegrating tablet Take 1 tablet by mouth At Bedtime. ??? DISCONTD: senna-docusate (SENOKOT-S;PERICOLACE) 8.6-50 MG per tablet Take 1- 2 tablets by mouth 2times daily. ??? DISCONTD: ferrous sulfate 325 (65 FE) MG tablet Take 1 tablet by mouth 2 times daily. ??? DISCONTD: OMEPRAZOLE PO Take by mouth. ??? DISCONTD: Vit-Fe Fumarate-FA ( MULTIVITAMIN PLUS IRON) 27- 0.8 MG TABS Take 1 tablet by mouth daily. Allergies Allergen Reactions ??? Seasonal Allergies Review of Systems: CONSTITUTIONAL: no fatigue, no unexpected change in weight, no headache. RESP: no significant cough, no shortness of breath CV: no chest pain, no palpitations, no new or worsening peripheral edema GI: no nausea, no vomiting, no constipation, no diarrhea MUSCULOSKELETAL: knee pain as in HPI, no other joint pain. Physical Exam: Filed Vitals: 12/22/11 1406 BP: 115/85 Pulse: 97 Temp: 98.4 ??F (36.9 ??C) TempSrc: Oral Resp: 16 Height: 5' 1.75 (156.8 cm) Weight: 152 lb (68.947 kg) GENERAL:: healthy, alert, well nourished, well hydrated, no distress RESP: lungs clear to auscultation - no rales, no rhonchi, no wheezes CV: regular rates and rhythm, normal S1 S2 MS: extremities- no gross deformities noted, no edema, no increased warmth, mild tenderness along the left knee joint line. SKIN: erythematous comedones without nodules or pustules over the chest, no lesions on the face. Assessment and Plan Azul was seen today for following: Diagnoses and associated orders for this visit: 1. Knee pain, bilateral, most likely d/t patello-femoral syndrome. - PHYSICAL THERAPY REFERRAL - pt re-assured that it does not sound like bursitis at this point, but if the pain worsens, or localizes or any changes in her symptoms occur, would need to be re-evaluated. - pt agreed for the therapy. 2. Contraception management Other options discussed but pt opted for control pills. Discussed about having menses monthly or every 3 months and pt was comfortable in having menses every 3 months. - levonorgestrel-ethinyl estradiol (SEASONALE) 0.15-0.03 MG per tablet; Take 1 tablet by mouth daily. 3. Acne vulgaris per [employer] chart, pt was on Minocycline 100 mg daily and Tretinoin daily. Although her lesions does not look severe, pt states that it is usually very severe and is now better since she was . But usually her acne flares up from this point. Given her history, would start her back on oral obx along with topical tretinoin and benzoyl peroxide for a month, if better, then would try to d/c oral abx and then maintain only on topical tretinoin and benzoyl peroxide. - minocycline (DYNACIN) 100 MG tablet; Take 1 tablet by mouth daily. - benzoyl peroxide 5 % gel; Use over the areas everyday 1-2 times/daily. Please use it along with other ointment. - tretinoin (RETIN-A) 0.025 % cream; Apply topically At Bedtime. Spread a pea size amount into affected area. Use sunscreen SPF>20. Options for treatment and follow-up care were reviewed with the patient and/or guardian. Azul Solis Smart and/or guardian engaged in the decision making process and verbalized understanding of the options discussed and agreed with the final plan. Caitlin Ballesteros MD [facility] documented in this encounter Plan of Treatment Scheduled Referrals Name Type Priority Associated Diagnoses Order S jaye PHYSICAL THERAPY REFERRAL Referral Routine Knee pain, bila teral Ordered: 12/22/2011 documented as of this encounter Visit Diagnoses Diagnosis Knee pain, bilateral - Primary Pain in joint, lower leg Contraception management Unspecified contraceptive management Acne vulgaris Other acne documented in this encounter Care Teams Supervisor Cd Area Relationship Specialty Start Date End Date Caitlin Ballesteros MD PCP - General 10/08/11 08/11/13 documented as of this encounter
--- OUTSIDE RECORDS SUMMARY | 2021-12-17 15:11 | XMS_ITS | Encounter Summary ---
:1980 Author Organization [place] Address [address] [place] [address] Care Team Providers Name Role Phone Andreas Patel MD Primary Care Provider Caitlin Ballesteros MD Primary Care Provider Lisa Dewitt DO Primary Care Provider Bebeto Roth MD Unavailable Astrid Rios PA-C Unavailable [facility] Primary Care Provider + Keri Elias MD Primary Care Provider Unavailable Francisco Metz MD Primary Care Provider [phone] Francisco Metz MD Unavailable [phone] Kenton Katz MD Unavailable Unavailable Kaern Veliz DO Primary Care Provider Kenton Katz MD Unavailable Unavailable Karen Veliz DO Unavailable Encounter Details Date Type Department Care Team Description 09/08/2011 Office Visit-P INTERFACE P DEPT Greta Patel v, MD [facility] [address] [place] [address] (Wo rk) Social History Tobacco Use Types Packs/Day Years Used Date Smoking Tobacco: Never Assessed Sex Assigned at Date Recorded Not on file documented as of this encounter Progress Notes Andreas Patel MD - 09/08/2011 3:00 PM CDT [employer] Dealer: Andreas Patel Status: Amended, Unsigned Encounter: 2011-09-08 15:00:00.000 Type: FM Ultrasound ECTION OFFICER SUPERVISOR documented in this encounter Plan of Treatment Not on filedocumented as of this encounter Visit Diagnoses Not on filedocumented in this encounter Care Teams Sql Programmer Analyst Relationship Specialty Start Date End Date Andreas Patel MD PCP - General 10/05/11 10/07/11 [facility] [address] [place] [id number] Caitlin Ballesteros MD PCP - General 10/08/11 08/11/13 Lisa Dewitt DO PCP - General 08/12/13 07/15/14 [facility] [address] [place] [id number] Clinic - [facility] PCP - General 07/16/14 03/11/15 [facility] [address] [place] [id number] Keri Elias PCP - General Family Practice 03/12/15 9 MD Isaías Glez Mitchell PCP - General Family Practice 11/14/18 04/02/20 MD Stevie Karen Veliz PCP - General Family Medicine 04/03/20 [address] [place] [address] Bebeto Roth MD Orthopedics 07/09/14 [facility] [place] [address] [id number] Astrid Rios PA-C Physician Steam Generating Powerplant Mechanic Physician Steam Generating Powerplant Mechanic - 07/09/14 Surgical Francisco Metz Assigned PCP 07/04/19 02/01/20 MD Stevie [address] [place] [address] Kenton Katz Assigned PCP 02/02/20 08/27/20 MD Feliberto NO INFO AVAILABLE Kenton Katz Assigned Endocrinology 08/28/20 07/23/21 MD Feliberto Provider NO INFO AVAILABLE Karen Veliz, Assigned PCP 08/28/20 DO [address] [place], [place] [id number] documented as of this encounter
--- OUTSIDE RECORDS SUMMARY | 2021-12-17 15:11 | XMS_ITS | Encounter Summary ---
:1980 Author Organization [place] Address [address] [place] [address] Care Team Providers Name Role Phone Unavailable Primary Care Provider Unavailable Encounter Details Date Type Department Care Team Description 08/11/2011 Historic Results [facility] Leanne Navarro [place] MD Ан[address] [place] [address] [place] [address] Social History Tobacco Use Types Packs/Day Years Used Date Smoking Tobacco: Never Assessed Sex Assigned at Date Recorded Not on file documented as of this encounter Plan of Treatment Not on filedocumented as of this encounter Procedures Procedure Name Priority Date/Time Associated Diagnosis Comme nts GLUCOSE CASUAL Routine 08/11/2011 2:32 PM Results for this (LABDAQ) CDT procedure are i n the results section. documented in this encounter Results Glucose Casual (LabDAQ) (08/11/2011 2:32 PM CDT) P athologist Signature Glucose Casual 132.0 51.0 - [facility] HISTORICAL 200.0 RESULTS mg/dL Specimen Anatomical Collection Method Collection Time Receive d Time (Source) Location / / Volume Laterality 08/11/2011 2:32 PM 2 2:32 CDT PM CDT Radha Navarro MD LAB - LABDAQ Performing Organization Address City/State/ZIP Code Phon e Number [facility] HISTORICAL RESULTS documented in this encounter Visit Diagnoses Not on filedocumented in this encounter
--- OUTSIDE RECORDS SUMMARY | 2021-12-17 15:11 | XMS_ITS | Encounter Summary ---
:1980 Author Organization [place] Address [facility] [place] [address] Care Team Providers Name Role Phone Unavailable Primary Care Provider Unavailable Encounter Details Date Type Department Care Team Description 09/08/2011 Results Only INTERFACED REPORT Andreas Patel MD [facility] [address] [place] [address] (Wo rk) Social History Tobacco Use Types Packs/Day Years Used Date Smoking Tobacco: Never Assessed Sex Assigned at Date Recorded Not on file documented as of this encounter Plan of Treatment Not on filedocumented as of this encounter Procedures Procedure Name Priority Date/Time Associated Diagnosis Comme nts GROUP B STREP PCR Routine 09/08/2011 4:47 PM Resu lts for this CDT procedure are i n the results section. documented in this encounter Results Group B strep PCR (09/08/2011 4:47 PM CDT) [facility] Method Time Signature Group B Strep Vaginal [facility] PCR Spec [place] Rectal Group B Strep Positive: GBS DNA detected, presumed positive for GBS. [facility] PCR Assay performed on incubated broth culture of specimen [email or web address] [email or web address] MICROBIOLOGY SmartCycler(R) real-time PCR. Specimen Anatomical Collection Method Collection Time Receive d Time (Source) Location / / Volume Laterality 09/08/2011 4:47 PM 2 4:52 CDT PM CDT Andreas Patel MD LAB - MICRO GENERAL ORDERABL ES Performing Organization Address City/State/ZIP Code Phon e Number [facility] [address] [place] [address] [facility] MICROBIOLOGY documented in this encounter Visit Diagnoses Not on filedocumented in this encounter
--- OUTSIDE RECORDS SUMMARY | 2021-12-17 15:11 | XMS_ITS | Encounter Summary ---
:1980 Author Organization [place] Address [facility] [place] [address] Care Team Providers Name Role Phone Unavailable Primary Care Provider Unavailable Encounter Details Date Type Department Care Team Description 08/18/2011 Historic Results [facility] [address] [place] [address], [address] [place] [phone] (Wo rk) Social History Tobacco Use Types Packs/Day Years Used Date Smoking Tobacco: Never Assessed Sex Assigned at Date Recorded Not on file documented as of this encounter Plan of Treatment Not on filedocumented as of this encounter Procedures Procedure Name Priority Date/Time Associated Diagnosis Comme nts GLUCOSE CASUAL Routine 08/18/2011 1:39 PM Results for this (LABDAQ) CDT procedure are i n the results section. documented in this encounter Results Glucose Casual (LabDAQ) (08/18/2011 1:39 PM CDT) P athologist Signature Glucose Casual 137.0 51.0 - [facility] HISTORICAL 200.0 RESULTS mg/dL Specimen Anatomical Collection Method Collection Time Receive d Time (Source) Location / / Volume Laterality 08/18/2011 1:39 PM 2 1:39 CDT PM CDT [facility] LAB - LABDAQ Performing Organization Address City/State/ZIP Code Phon e Number [facility] HISTORICAL RESULTS documented in this encounter Visit Diagnoses Not on filedocumented in this encounter
--- OUTSIDE RECORDS SUMMARY | 2021-12-17 15:11 | XMS_ITS | Encounter Summary ---
:1980 Author Organization [place] Address [address] [facility] [place] [address] Care Team Providers Name Role Phone Unavailable Primary Care Provider Unavailable Encounter Details Date Type Department Care Team Description 09/08/2011 Results Only INTERFACED REPORT Andreas Patel MD [facility] [address] [place], [place] [id number] (Wo rk) Social History Tobacco Use Types Packs/Day Years Used Date Smoking Tobacco: Never Assessed Sex Assigned at Date Recorded Not on file documented as of this encounter Plan of Treatment Not on filedocumented as of this encounter Procedures Procedure Name Priority Date/Time Associated Comments Diagnosis REFERRAL SENSITIVITY Routine 09/08/2011 4:47 PM R esults for this CDT procedure are i n the results section. documented in this encounter Results Referral sensitivity (09/08/2011 4:47 PM CDT) Component Value Ref Test Analysis Performed At [facility] Range Method Time Signature Specimen Vaginal Rectal [facility] Description MICROBIOLOGY Culture Micro Beta hemolytic [facility] Streptococcus MICROBIOLOGY group B isolated Micro Report FINAL 09/12/2011 [facility] Status MICROBIOLOGY Specimen Anatomical Collection Method Collection Time Receive d Time (Source) Location / / Volume Laterality 09/08/2011 4:47 PM 2 4:52 CDT PM CDT Organism Antibiotic Method Susceptibility Beta hemolytic streptococcus group b Ampicillin 0.12 Susceptible ug/mL isolated (almaz gram pos panel) Beta hemolytic streptococcus group b Penicillin 0.06 Susceptible ug/mL isolated (almaz gram pos panel) Beta hemolytic streptococcus group b Vancomycin 0.5 Susceptible ug/mL isolated (almaz gram pos panel) Beta hemolytic streptococcus group b Cefotaxime <=0.25 Susceptible ug/mL isolated (almaz gram pos panel) Beta hemolytic streptococcus group b Ceftriaxone <=0.25 Susceptible ug/mL isolated (almaz gram pos panel) Beta hemolytic streptococcus group b Erythromycin <=0.06 Susceptible ug/mL isolated (almaz gram pos panel) Beta hemolytic streptococcus group b Clindamycin <=0.06 Susceptible ug/mL isolated (almaz gram pos panel) Andreas Patel MD LAB - MICRO GENERAL ORDERABL ES Performing Organization Address City/State/ZIP Code Phon e Number [facility] [address] [place] [address] [facility] MICROBIOLOGY documented in this encounter Visit Diagnoses Not on filedocumented in this encounter
--- OUTSIDE RECORDS SUMMARY | 2021-12-17 15:11 | XMS_ITS | Encounter Summary ---
:1980 Author Organization [place] Address [address] [place] [address] Care Team Providers Name Role Phone Unavailable Primary Care Provider Unavailable Encounter Details Date Type Department Care Team Description 04/28/2011 Office Visit-[facility] INTERFACE [facility] DEPT Radha Navarro MD Social History Tobacco Use Types Packs/Day Years Used Date Smoking Tobacco: Never Assessed Sex Assigned at Date Recorded Not on file documented as of this encounter Progress Notes Radha Navarro MD - 04/28/2011 5:23 PM CDT Electrical Equipment Tester: Radha Navarro Status: Amended, Final Encounter: 28 Apr 2011 Type: FM Letters Autosend Letters Ms. AZUL TELLEZ [address] [place] [address] April 28, 2011 Dear Ms. AZUL TELLEZ Please see below for your results from your recent testing. Your tests results are normal except thetest for vaginal yeast infection is positive. I have sent the prescription to your pharmacy, please pick it up. If you have questions please contact the clinic to make an appointment with me to discuss the results. Sincerely, Radha Aquino'laila Clinic Hours: Monday- Monday 8:00 am - 5:00 pm . Results S Urinalysis 20 Apr 2011 04:36 PM - UA - Specific: 1.025 - UA - pH: 6.0 - UA - Leucocytes: 500/ul 2+ - UA - Nitrite: neg - UA - Protein: 15 mg/dltrace - UA - Glucose: norm - UA - Keotones: 50 mg/dl 2+ - UA - Urobili: norm - UA - Bilirubin: neg - UA - Blood: 150/ul 3+ S Hemoglobin 20 Apr 2011 04:36 PM - Hemoglobin: 10.9 g/dl Wet Prep, Vaginal 20 Apr 2011 04:36 PM - Yeast: Present - Motile Trichomonas: Negative - Clue Cells: None - WBC: 5-10 - Odor: None - Bacteria: Few - pH: <4.5 Type and Screen 20 Apr 2011 04:32 PM - ZY000 ABO/Rh(D) O Pos Antibody Screen Neg Specimen Expires 04/23/2011 . Urine Culture 20 Apr 2011 04:32 PM - Urine Culture Specimen Description Midstream Urine Special Requests Specimen received in preservative Culture 10 to 50,000 colonies/mL Mixed gram positive teresa Multiple species present, probable perineal contamination. Susceptibility testing not routinely done Report status FINAL 04/21/2011 Varicella Zoster IgG 20 Apr 2011 04:32 PM - Immune Status Ratio: 203.00 - Interpretation: Positive, suggests prev. exposure and probable immunity Hep B Surface Leatha 20 Apr 2011 04:32 PM - Hep B Surface Leatha: 751.0 Screen w/HIV 20 Apr 2011 04:32 PM - HIV 1&2 Antibody: Negative - Rubella IgG Antibody: 48 IU/ml - Hep B Surface Agn: Negative - Anti Treponema EIA: Negative Chlamydia trach PCR 20 Apr 2011 04:32 PM - Chlamydia trach PCR Specimen Description Cervical CHPCR Negative for C. trachomatis rRNA by liner assembler mediated amplification. A negative result by liner assembler mediated amplification does not preclude the presence of C. trachomatis infection because results are dependent on proper and adequate collection, absence of inhibitors, and sufficient rRNA to be detected. N gnorrhoeae PCR 20 Apr 2011 04:32 PM - N gonorrhoeae PCR Specimen Description Cervical GCPCR Negative for N. gonorrhoeae rRNA by liner assembler mediated amplification. A negative result by liner assembler mediated amplification does not preclude the presence of N. gonorrhoeae infection because results are dependent on proper and adequate collection, absence of inhibitors, and sufficient rRNA to be detected. Cytopathology 20 Apr 2011 12:00 AM - Cytopathology PAP NIL Acc#: [id number] Signed: 04/22/2011 13:01 MR#: [id number] SPECIMEN/STAIN PROCESS: Pap imaged thin layer prep screening (Surepath, FocalPoint with guided screening) Pap-Cyto x 1, Digene Reflex HPV x 1 SOURCE: Cervical Pap imaged thin layer prep screening (Surepath, FocalPoint with guided screening) SPECIMEN ADEQUACY: Satisfactory for evaluation. -LMP not provided on specimen requisition. -Transformation zone component absent. CYTOLOGIC INTERPRETATION: Negative for Intraepithelial Lesion or Malignancy Electronically signed out by: APOLLO Moulton (ASCP) CLINICAL HISTORY: Papanicolaou Test Limitations: Cervical cytology is a screening test with limited sensitivity; regular screening is critical for cancer prevention; Pap tests are primarily effective for the diagnosis/prevention of squamous cell carcinoma, not adenocarcinomas or other cancers. TESTING LAB LOCATION: [facility], [address] [address], Processed and screened at [facility], [facility]. Orders Clotrimazole 1 % Cream ([place]);INSERT 1 APPLICATORFUL INTRAVAGINALLY AT BEDTIME NIGHTLY; Qty10; R0; Rx Amended By: Radha Navarro ; 04/28/2011 5:25 PM CARTRIDGE FEEDER. Signature Signed By: Radha Navarro MD,Resident; 04/28/2011 5:24 PM CARTRIDGE FEEDER; Author. Signed By: Radha Navarro MD,Resident; 04/28/2011 5:29 PM CARTRIDGE FEEDER; Author. documented in this encounter Plan of Treatment Not on filedocumented as of this encounter Visit Diagnoses Not on filedocumented in this encounter
--- OUTSIDE RECORDS SUMMARY | 2021-12-17 15:11 | XMS_ITS | Encounter Summary ---
:1980 Author Organization [place] Address [address] [place] [address]. [place] [address] Care Team Providers Name Role Phone Unavailable Primary Care Provider Unavailable Encounter Details Date Type Department Care Team Description 09/30/2011 Orders Only M [facility] Angela Holguin IUGR (intrauterine growth Imaging restriction) (Primary Dx) [address] [place] [id number] Social History Tobacco Use Types Packs/Day Years Used Date Smoking Tobacco: Never Alcohol Use Standard Drinks/Week Comments No 0 (1 standard drink = 0.6 oz pure alcoho l) Sex Assigned at Date Recorded Not on file documented as of this encounter Plan of Treatment Not on filedocumented as of this encounter Procedures Procedure Name Priority Date/Time Associated Diagnosis Comme nts US OB BIOPHY Routine 09/30/2011 2:02 PM IUGR (intrauteri ne Results for this PROFILE W/O NON CDT growth restriction) proce dure are in STRESS SINGLE the results section. documented in this encounter Results US BIOPHYS PROFILE W/O [id number] PERFORMED (09/30/2011 2:02 PM CDT) Anatomical Region Laterality Modality Abdomen/Pelvis Other Specimen (Source) Anatomical Collection Method Collection Time Re ceived Time Location / / Volume Laterality 09/30/2011 2:02 PM CDT Impressions 09/30/2011 4:04 PM CDT Biophysical profile. 09/30/11. Comparisons: Obstetric ultrasound from . HISTORY: Post dates. FINDINGS: breathing movements: 2/2 Gross body movements: 2/2 tone: 2/2 Amniotic fluid volume: 2/2 Total: 09/20 Amniotic fluid index: 12.8 cm heart rate: 163 beats per minute Placenta location: Anterior IMPRESSION: Normal biophysical profile. I have personally reviewed the image and initial interpretation and agree with the findings. Cindy Pope MD IMG US ORDERABLES documented in this encounter Visit Diagnoses Diagnosis IUGR (intrauterine growth restriction) - Primary Unspecified growth retardation, un specified (weight) documented in this encounter
--- OUTSIDE RECORDS SUMMARY | 2021-12-17 15:11 | XMS_ITS | Encounter Summary ---
:1980 Author Organization [place] Address [address] [facility] [place] [address] Care Team Providers Name Role Phone Andreas Patel MD Primary Care Provider Caitlin Ballesteros MD Primary Care Provider Lisa Dewitt DO Primary Care Provider Bebeto Roth MD Unavailable Astrid Rios PA-C Unavailable [facility] Primary Care Provider + Keri Elias MD Primary Care Provider Unavailable Francisco Metz MD Primary Care Provider [phone] Francisco Metz MD Unavailable [phone] Kenton Katz MD Unavailable Unavailable Karen Veliz DO Primary Care Provider Kenton Katz MD Unavailable Unavailable Karen Veliz DO Unavailable Encounter Details Date Type Department Care Team Description 09/08/2011 Office Visit-P INTERFACE P DEPT Karel Ontiveros MD [address] [place] [address] (Wo rk) Social History Tobacco Use Types Packs/Day Years Used Date Smoking Tobacco: Never Assessed Sex Assigned at Date Recorded Not on file documented as of this encounter Progress Notes August Ontiveros MD - 09/08/2011 3:00 PM CDT Fortune Cookie Maker: Weston August Status: Final Encounter: 2011-09-08 15:00:00.000 Type: FM Ultrasound Active Problems Acne Vulgaris (706.1) Anxiety (300.00) Care Coordinated By; Tier 0 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 US 2nd & 3rd Trimester Ultrasound Report Primary MD: Lesli/Amanda Men'S Leather Dress Belt Maker: August Ontiveros Indications: size less than dates follow up Machine: Targeter App 5 Pro FHR: 150s Fluid:Normal TJ: 14.5 Placenta Location: posterior number:Jimenez Presentation: Vertex SURVEY Sex Determination MEASUREMENTS:(Hadlock) BPD: 8.70 cm 35wks 1d HC: 32.67 cm 37wks 0d AC: 32.83 cm 36wks 5d FL: 7.15 cm 36wks 4d EFW 2971g, 6lb 9oz Weight Percentile: 20%tile CONCLUSIONS: By today's U/S EGA : 36wks 1d +/-21d VINCENT U/S: 10/06/2011 Ultrasound Measurements are consistent with LMP and show growth from previous US Patient informed about conclusions of this ultrasound during the visit. Signature Signed By: August Ontiveros M.D.; 09/09/2011 3:11 PM AUTOMOTIVE SHOP FOREMAN; Author. MOTIVE SHOP FOREMAN documented in this encounter Plan of Treatment Not on filedocumented as of this encounter Visit Diagnoses Not on filedocumented in this encounter Care Teams Air Conditioner Installer Helper Relationship Specialty Start Date End Date Andreas Patel MD PCP - General 10/05/11 10/07/11 [facility] [address] [place] [address] Caitlin Ballesteros MD PCP - General 10/08/11 08/11/13 Lisa Dewitt DO PCP - General 08/12/13 07/15/14 [facility] [address] [place] [id number] [facility], PCP - General 07/16/14 03/11/15 [facility] [address] [place] [id number] Keri Elias PCP - General Family Practice 03/12/15 MD Isaías Glez Mitchell PCP - General Family Practice 11/14/18 04/02/20 MD Stevie Karen Veliz, PCP - General Family Medicine 04/03/20 DO [address] [place] [address] Bebeto Roth MD Orthopedics 07/09/[address] [id number] Astrid Rios PA-C Physician E Mail System Administrator Physician E Mail System Administrator - 07/09/14 Surgical Francisco Metz Assigned PCP 07/04/19 02/01/20 MD Stevie [address] [place] [address] Kenton Katz Assigned PCP 02/02/20 08/27/20 MD Feliberto NO INFO AVAILABLE Kenton Katz Assigned Endocrinology 08/28/20 07/23/21 MD Fel[facility] Provider NO INFO AVAILABLE Karen Veliz, Assigned PCP 08/28/20 DO [address] [place] [phone] documented as of this encounter
--- OUTSIDE RECORDS SUMMARY | 2021-12-17 15:11 | XMS_ITS | Encounter Summary ---
:1980 Author Organization [place] Address [facility] [place] [address] Care Team Providers Name Role Phone Unavailable Primary Care Provider Unavailable Encounter Details Date Type Department Care Team Description 09/08/2011 Historic Results [facility] Andreas Patel MD Clinic [facility] [address] [place] [address], [address] [place] [phone] (Wo rk) Social History Tobacco Use Types Packs/Day Years Used Date Smoking Tobacco: Never Assessed Sex Assigned at Date Recorded Not on file documented as of this encounter Plan of Treatment Not on filedocumented as of this encounter Procedures Procedure Name Priority Date/Time Associated Comments Diagnosis HEMOGLOBIN A1C Routine 09/08/2011 3:22 PM Results for this (LABDAQ) CDT procedure are i n the results section. documented in this encounter Results Hemoglobin A1c (LabDAQ) (09/08/2011 3:22 PM CDT) P athologist Signature Hemoglobin A1C 5.6 4.1 - 5.7 [facility] HISTORICAL % RESULTS Specimen Anatomical Collection Method Collection Time Receive d Time (Source) Location / / Volume Laterality 09/08/2011 3:22 PM 2 3:22 CDT PM CDT Andreas Patel MD LAB - LABDAQ Performing Organization Address City/State/ZIP Code Phon e Number [facility] HISTORICAL RESULTS documented in this encounter Visit Diagnoses Not on filedocumented in this encounter
--- OUTSIDE RECORDS SUMMARY | 2021-12-17 15:11 | XMS_ITS | Encounter Summary ---
:1980 Author Organization [place] Address [address] [facility] [place] [address] Care Team Providers Name Role Phone Unavailable Primary Care Provider Unavailable Encounter Details Date Type Department Care Team Description 05/09/2011 Office Visit-[facility] INTERFACE [facility] DEPT Radha Navarro MD Social History Tobacco Use Types Packs/Day Years Used Date Smoking Tobacco: Never Assessed Sex Assigned at Date Recorded Not on file documented as of this encounter Progress Notes Radha Navarro MD - 05/09/2011 2:40 PM CDT Snow Remover: Radha Navarro Status: Final Encounter: 09 May 2011 Type: FM Letters Autosend Letters Ms. AZUL TELLEZ [address] [place] [address] May 09, 2011 Dear Ms. AZUL TELLEZ Please see below for your results from your recent testing. Your results are reassuring. If you have questions please contact the clinic to make an appointment with me to discuss the results. Sincerely, Radha Aquino'laila Clinic Hours: Monday- Monday 8:00 am - 5:00 pm . Results US OB LIMITED 28 Apr 2011 05:27 PM - US OB LIMITED Principal Result Pin Ball Machine Mechanic: ZULMA FOREMAN DR&& EXAM: OB ultrasound 04/28/2011. CLINICAL HISTORY: Check dating. COMPARISON: None. FINDINGS: The placental location is anterior. There is no placenta previa. Presentation is cephalic. Biparietal diameter is 38 corresponding to 17 weeks 5 days. Head circumference 145 mm corresponding to 17 weeks 6 days Abdominal circumference 127 mm corresponding to 18 weeks 2 days. Femur length 25 mm corresponding to 17 weeks 5 days cardiac activity is identified at 152 beats per minute. IMPRESSION: Single living intrauterine gestation with estimated ultrasound age 18 weeks 0 days, corresponding to EDC of 09/29/2011. I have personally reviewed the image and initial interpretation and agree with the findings. Performed at: [place]. Signature Signed By: Radha Navarro MD,Resident; 05/09/2011 2:40 PM INDUSTRIAL ORDER CLERK; Author. documented in this encounter Plan of Treatment Not on filedocumented as of this encounter Visit Diagnoses Not on filedocumented in this encounter
--- OUTSIDE RECORDS SUMMARY | 2021-12-17 15:11 | XMS_ITS | Encounter Summary ---
:1980 Author Organization [place] Address [facility] [place] [address] Care Team Providers Name Role Phone Unavailable Primary Care Provider Unavailable Encounter Details Date Type Department Care Team Description 06/21/2011 Results Only [facility] PHYS Radha De La Fuente [address] [facility] MD [place], [place] [phone] Social History Tobacco Use Types Packs/Day Years Used Date Smoking Tobacco: Never Assessed Sex Assigned at Date Recorded Not on file documented as of this encounter Plan of Treatment Not on filedocumented as of this encounter Procedures Procedure Name Priority Date/Time Associated Comments Diagnosis CHLAMYDIA TRACHOMATIS Routine 06/21/2011 4:02 PM Results for this PCR CDT procedure are i n the results section. documented in this encounter Results Chlamydia trachomatis PCR (06/21/2011 4:02 PM CDT) Component Value Ref Test Analysis Performed At [facility] Method Time Signature Specimen Cervical [facility] Chlamydia Negative for C. trachomatis rRNA by shorthand teacher mediated amplification. [facility] Trachomatis A negative result by transc ription mediated amplification does not preclude the MICROBIOLOGY PCR presence of C. trachomatis infection because results are dependent on proper and adequate collection, absence of inhibitors, and suffici ent rRNA to be detected. Specimen Anatomical Collection Method Collection Time Receive d Time (Source) Location / / Volume Laterality 06/21/2011 4:02 PM 2 4:07 CDT PM CDT Radha Navarro MD LAB - MICRO GENERAL ORDERABL ES Performing Organization Address City/State/ZIP Code Phon e Number [facility] [address] [place] [address] [facility] MICROBIOLOGY documented in this encounter Visit Diagnoses Not on filedocumented in this encounter
--- OUTSIDE RECORDS SUMMARY | 2021-12-17 15:11 | XMS_ITS | Encounter Summary ---
:1980 Author Organization [place] Address [address] [facility] [place] [address] Care Team Providers Name Role Phone Adnreas Patel MD Primary Care Provider Caitlin Ballesteros MD Primary Care Provider Lisa Dewitt DO Primary Care Provider Bebeto Roth MD Unavailable Astrid Rios PA-C Unavailable [facility] Primary Care Provider + Keri Elias MD Primary Care Provider Unavailable Francisco Metz MD Primary Care Provider [phone] Francisco Metz MD Unavailable [phone] Kenton Katz MD Unavailable Unavailable Karen Veliz DO Primary Care Provider Kenton Katz MD Unavailable Unavailable Karen Veliz DO Unavailable Encounter Details Date Type Department Care Team Description 06/23/2011 Office Visit-P INTERFACE P DEPT Social History Tobacco Use Types Packs/Day Years Used Date Smoking Tobacco: Never Assessed Sex Assigned at Date Recorded Not on file documented as of this encounter Progress Notes SY [facility] ULTRASOUND - 06/23/2011 9:10 AM CDT Social Services Assistant: ADOLFO CURRY Status: Amended, Final Encounter: 2011-06-23 09:10:00.000 Type: FM Ultrasound Active Problems Acne Vulgaris (706.1) Anxiety (300.00) Care Coordinated By; Tier 0 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 US 2nd & 3rd Trimester Ultrasound Report Primary MD: Dr Navarro Payroll Administrator: Latesha Harley Indications: survey P: 2 Machine: Two Tap 5 Pro FHR: 138 bpm Fluid:Normal Placenta Location: anterior number:Jimenez Presentation: Breech SURVEY Cerebellum Normal Intracranial Anatomy (Choroid Plexus, Cisterna Magna Lateral ventricles, Midline Falx Cavum Septi Pellucidi) Normal Heart: (4 chamber) 4 chambers seen Heart:(out flow tracts) not well seen Diaphragm Normal Stomach Normal Kidney: Right Normal Left Normal Umbilical Cord: 3 vessels: Normal Insertion: as seen Normal Bladder Normal Spine: Cervical Normal Thoracic Normal L/S as seen Normal 4 limbs visualized Sex Determination Female MEASUREMENTS:(Hadlock) BPD: 5.9 cm 24wks 1d HC: 23.1 cm 25wks 1d AC: 19.9 cm 24wks 4d FL: 4.6 cm 25wks 1d EFW 736g, 1lb 10oz Weight Percentile: 6%tile CONCLUSIONS: 1st u/s not done here By 1st US EGA : 26wks VINCENT : 09/29/2011 By today's U/S EGA : 24wks 3d +/-14d VINCENT U/S: 10/10/2011 Ultrasound Measurements are consistent with previous US Follow up Ultrasound as clinically indicated Patient not informed about conclusions of this ultrasound during the visit. Attending Note Images reviewed and agree with documentation. Follow up Ultrasound recommended in 2-4 weeks to reevaluate low weight percentile.. Amended By: August Ontiveros ; 06/27/2011 3:10 PM MITIGATION SUPERVISOR. Signature Signed By: Latesha Harley ; 06/23/2011 9:48 AM MITIGATION SUPERVISOR. Signed By: August Ontiveros M.D.; 06/27/2011 3:11 PM MITIGATION SUPERVISOR; Author. GATION SUPERVISOR documented in this encounter Plan of Treatment Not on filedocumented as of this encounter Visit Diagnoses Not on filedocumented in this encounter Care Teams Pluck Trimmer Relationship Specialty Start Date End Date Andreas Patel MD PCP - General 10/05/11 10/07/11 [facility] [address] [place] [address] Caitlin Ballesteros MD PCP - General 10/08/11 08/11/13 Lisa Dewitt DO PCP - General 08/12/13 07/15/14 [facility] [address] [place], [place] [id number] [facility] PCP - General 07/16/14 03/11/15 [facility] [address] [place] [address] Keri Elias PCP - General Family Practice 03/12/15 9 MD Isaías Glez Mitchell PCP - General Family Practice 11/14/18 04/02/20 MD Stevie Karen Veliz, PCP - General Family Medicine 04/03/20 [address] [place] [address] Bebeto Roth MD Orthopedics 07/09/[address] [address] Astrid Rios PA-C Physician Manager Water Wastewater Physician Manager Water Wastewater - 07/09/14 Surgical Francisco Metz Assigned PCP 07/04/19 02/01/20 MD Stevie [address] [place] [address] Kenton Katz Assigned PCP 02/02/20 08/27/20 MD Feliberto NO INFO AVAILABLE Kenton Katz Assigned Endocrinology 08/28/20 07/23/21 MD Feliberto Provider NO INFO AVAILABLE Karen Veliz, Assigned PCP 08/28/20[address] [place] [address] documented as of this encounter
--- OUTSIDE RECORDS SUMMARY | 2021-12-17 15:11 | XMS_ITS | Encounter Summary ---
:1980 Author Organization [place] Address [address] [facility] [place] [address] Care Team Providers Name Role Phone Unavailable Primary Care Provider Unavailable Encounter Details Date Type Department Care Team Description 09/22/2011 Hospital Encounter M [facility] Juanis Boyer, Birthplace MD [address] [place] [address] [address] [facility] [phone] [place] [address] (Wo rk) Social History Tobacco Use Types Packs/Day Years Used Date Smoking Tobacco: Never Alcohol Use Standard Drinks/Week Comments No 0 (1 standard drink = 0.6 oz pure alcoho l) Sex Assigned at Date Recorded Not on file documented as of this encounter Last Filed Vital Signs Vital Sign Reading Time Taken Comments Blood Pressure 107/70 09/22/2011 3:58 PM CDT Pulse 100 09/22/2011 3:58 PM CDT Temperature 36.7 ??C (98.1 ??F) 09/22/2011 3:43 PM CDT Respiratory Rate 20 09/22/2011 3:43 PM CDT Oxygen Saturation - - Inhaled Oxygen Concentration - - Weight 76.2 kg (168 lb) 09/22/2011 3:58 PM CDT Height 160 cm (5' 3) 09/22/2011 3:58 PM CDT Body Mass Index 29.76 09/22/2011 3:58 PM CDT documented in this encounter Discharge Instructions Discharge Rhonda Aguilera RN - 09/22/2011 4:54 PM CDT Discharge Instructions for Undelivered Patients Diet: * Drink 8 to 12 glasses of liquids (milk, juice, water) every day * You may eat meals and snacks. Activity: * Activity as tolerated * Count kicks every day (see handout). * Call your doctor or nurse rivet hole puncher if your baby is moving less than usual. Call your provider if you notice: * Swelling in your face or increased swelling in your hands or legs. * Headaches that are not relieved by Tylenol (acetaminophen). * Changes in your vision (blurring; seeing spots or stars). * Nausea (sick to your stomach) and vomiting (throwing up). * Weight gain of 5 pounds per week. * Heartburn that doesn't go away. * Signs of bladder infection: Pain when you urinate (use the toilet), needing to go more often or more urgently. * The bag of monson (membrane) breaks, or you notice leaking in your underwear. * Bright red blood in your underwear. * Abdominal (lower belly) or stomach pain. * Second (plus) baby: Contractions (tightenings) less than 10 minutes apart and getting stronger. * Increase or change in vaginal discharge (note the color and amount). Follow up tomorrow at clinic documented in this encounter Medications at Time of Discharge Medication Sig Dispensed Refills Start Date End Date OMEPRAZOLE PO Take by mouth. 0 012 Ondansetron HCl (ZOFRAN Take 4 mg by mouth 0 10/06/2011 PO) every 6 hours as needed. Vit-Fe Take 1 tablet by 0 09/2011 Fumarate-FA ( mouth daily. MULTIVITAMIN PLUS IRON) 27-0.8 MG TABS documented as of this encounter Progress Notes Miracle Teran MD - 09/22/2011 5:00 PM CDT Images from the original note were not included. [facility] 1st Ob notel Azul Garg Age: [age] year old Date of : 1980 Date of Admission: 09/22/2011 5:00 PM History of Present Illness (Resident / Clinician): Azul Garg is a patient of Dr. Loja from [facility]. She is a 31 year old [id number] is 39+0w with VINCENT 09/29/2011 that is consistent with 04/28/2011 dating ultrasound, as patient is unsure about her LMP. [facility]- when patient complained of decreased movement over the last 12-24hrs. Patient also reported some contractions. Growth ultrasound was done in clinic and a BPP was ordered. Clinic BPP results were 07/21 and therefore patient was referred to the hospital.. Patient denies fluid leakage. She denies bleeding per vagina. labs Lab Results Component Value Date ABO O 04/20/2011 RH Pos 04/20/2011 Neg 04/20/2011 HEPBANG Negative 04/20/2011 CHPCRT Value: Negative for C. trachomatis rRNA by advanced clinical specialist mediated amplification. A negative result by advanced clinical specialist mediated amplification does not preclude the presence of C. trachomatis infection because results are dependent on proper and adequate collection, absence of inhibitors, and suffi cient rRNA to be detected. 06/21/2011 GCPCRT Value: Negative for N. gonorrhoeae rRNA by advanced clinical specialist mediated amplification. A negative result by advanced clinical specialist mediated amplification does not preclude the presence of N. gonorrhoeae infection because results are dependent on proper and adequate collection, absence of inhibitors, and suffi cient rRNA to be detected. 06/21/2011 TREPAB Negative 04/20/2011 RUBELLAABIGG 48 04/20/2011 HGB 9.5* 10/16/2009 HIV Negative 04/20/2011 GBS Value: Positive: GBS DNA detected, presumed positive for GBS. Assay performed on incubated broth culture of specimen using DimeCycler(R) real-time PCR. 09/08/2011 Obstetrical History: She is a 31 year old Her OB history: Obstetric History T1 TAB0 SAB2 E0 M0 L2 Name of Baby 1 Not recorded ??? Outcome Date Not recorded GA Not recorded ??? Delivery Type Not recorded ??? at 1 min. Not recorded at 5 min. Not recorded ??? Living Not recorded Name of Baby 2 Not recorded ??? Outcome Date Not recorded GA Not recorded ??? Delivery Type Not recorded ??? at 1 min. Not recorded at 5 min. Not recorded ??? Living Not recorded Name of Baby 3 Not recorded ??? Outcome Date Not recorded GA Not recorded ??? Delivery Type Not recorded ??? at 1 min. Not recorded at 5 min. Not recorded ??? Living Not recorded Name of Baby 4 Not recorded ??? Outcome Date Not recorded GA Not recorded ??? Delivery Type Not recorded ??? at 1 min. Not recorded at 5 min. Not recorded ??? Living Not recorded Name of Baby 5 Not recorded ??? Outcome Date Not recorded GA Not recorded ??? Delivery Type Not recorded ??? at 1 min. Not recorded at 5 min. Not recorded ??? Living Not recorded Past Medical History: Past Medical History Diagnosis Date ??? Abnormal Pap smear in past- normal since then ??? Anemia with ??? Complication of anesthesia Past Surgical History: Past Surgical History Procedure Date ??? C spinal fusion,ant,ea adnl level 2010 Family History: History reviewed. No pertinent family history. Social History: Medications: vitamins Allergies: Review of patient's allergies indicates no known allergies. Review of Systems: CONSTITUTIONAL: no fatigue,- anxious about feeling decreased movements Physical Exam: Vitals: Filed Vitals: 09/22/11 1543 09/22/11 1558 BP: 120/79 107/70 Pulse: 121 100 Temp: 98.1 ??F (36.7 ??C) Resp: 20 168 lbs 0 oz Estimated Body mass index is 29.76 kg/(m^2) as calculated from the following: Height as of this encounter: 5' 3(1.6 m). Weight as of this encounter: 168 lb(76.204 kg). GEN: Awake, alert in no apparent distress HEENT: grossly normal ABDOMEN: gravid External Monitor, FHT: Baseline 140 bpm. Variability is moderate (5-25 bpm), Accelerations are Present, decelerations are Absent . Tracing is Category 1. Assessment and Plan: Assessment & PLAN: 1. Surveillance for Decreased Movement. Azul Garg is a 31 year old at 39+0weeks not in labor, presented to Labor and Delivery Triage from the clinic as her in-clinic BPP was 6/8 and patient reported decreased movements for the last 12-24 hours. A modified BPP was done, and was reassessed at 09/22. As NST showed a baseline FHR of 140 with moderate variability with accelerations. Category I tracing. As NST was normal - patient most likely does not have any neurological deficit. Plan is to anticipate . Patient advised to follow up with Dr. Patel in Clinic tomorrow, - Will notify Dr. Patel or Dr. Patel from [facility] Miracle Teran MD [facility] Family Medicine PGY 1 Pager No. [phone] documented in this encounter H&P Notes Unknown, Provider - 09/22/2011 3:43 PM CDT documented in this encounter Miscellaneous Notes Plan of Care - Rhonda Martinez RN - 09/22/2011 5:24 PM CDT D: pt discharged to home after +NST, reported + movement, and MD visit I: discharge instructions and kick count instructions discussed with pt A: pt verbalized understanding P: facilitate discharge Plan of Care - Rhonda Martinez RN - 09/22/2011 4:17 PM CDT D: pt received from clinic for BPP 6/8 (off for breathing), pt also c/o decreased movement over last 12-24 hrs (feels flutters instead of big movements). Denies rom/bldg/regular contractions.I: EFM and Haralson MD cynthia notified of pt arrival A: 38+ weeks here with c/o decreased movement and BPP 6/8 in clinic P: await MD orders, anticipate NST Face to face: 10 minutes documented in this encounter Plan of Treatment Not on filedocumented as of this encounter Visit Diagnoses Not on filedocumented in this encounter Active and Recently Administered Medications
--- OUTSIDE RECORDS SUMMARY | 2021-12-17 15:11 | XMS_ITS | Encounter Summary ---
:1980 Author Organization [place] Address [address] [facility] [place] [address] Care Team Providers Name Role Phone Unavailable Primary Care Provider Unavailable Encounter Details Date Type Department Care Team Description 07/19/2011 Historic Results [facility] Leanne Navarro [place] MD Андрей [address] [place], [place] [phone] (Work) [place] [address] Social History Tobacco Use Types Packs/Day Years Used Date Smoking Tobacco: Never Assessed Sex Assigned at Date Recorded Not on file documented as of this encounter Plan of Treatment Not on filedocumented as of this encounter Procedures Procedure Name Priority Date/Time Associated Comments Diagnosis GLUCOSE CHALLENGE Routine 07/19/2011 10:56 AM Res ults for this GEST SCREEN 1 HOUR CDT procedure are in (CHALLENGE) (LABDAQ) the res ults section. HEMOGLOBIN (HGB) Routine 07/19/2011 10:56 AM Resu lts for this (LABDAQ) CDT procedure are i n the results section. documented in this encounter Results (ABNORMAL) Glucose Challenge 1 Hr (LabDAQ) (07/19/2011 10:56 AM CDT) [facility] gist Method Time Signature Glu Gest 151.0 (H) 0.0 - UMP HISTORICAL Screen 1hr 50g 129.0 RESULTS Specimen Anatomical Collection Method Collection Time Receive d Time (Source) Location / / Volume Laterality 07/19/2011 10:56 07/19/2011 AM CDT 10:56 AM CDT Radha Navarro MD LAB - LABDAQ Performing Organization Address City/State/ZIP Code Phon e Number UMP HISTORICAL RESULTS (ABNORMAL) Hemoglobin (HGB) (LabDAQ) (07/19/2011 10:56 AM CDT) P athologist Signature Hemoglobin 11.0 (L) 11.7 - UMP HISTORICAL 15.7 g/dl RESULTS Specimen Anatomical Collection Method Collection Time Receive d Time (Source) Location / / Volume Laterality 07/19/2011 10:56 07/19/2011 AM CDT 10:56 AM CDT Radha Navarro MD LAB - LABDAQ Performing Organization Address City/State/ZIP Code Phon e Number UMP HISTORICAL RESULTS documented in this encounter Visit Diagnoses Not on filedocumented in this encounter
--- OUTSIDE RECORDS SUMMARY | 2021-12-17 15:11 | XMS_ITS | Encounter Summary ---
:1980 Author Organization [place] Address [address] [facility] [place] [address] Care Team Providers Name Role Phone Unavailable Primary Care Provider Unavailable Encounter Details Date Type Department Care Team Description 09/30/2011 Hospital Encounter M [facility] Cindy Pope MD Imaging [facility] [address] [facility] [place], [place] [address] [facility] [phone] [place] [address] (Wo rk) Social History Tobacco Use Types Packs/Day Years Used Date Smoking Tobacco: Never Alcohol Use Standard Drinks/Week Comments No 0 (1 standard drink = 0.6 oz pure alcoho l) Sex Assigned at Date Recorded Not on file documented as of this encounter Medications at Time of Discharge Medication Sig Dispensed Refills Start Date End Date OMEPRAZOLE PO Take by mouth. 0 012 Ondansetron HCl (ZOFRAN Take 4 mg by mouth 0 10/06/2011 PO) every 6 hours as needed. Vit-Fe Take 1 tablet by 0 09/2011 Fumarate-FA ( mouth daily. MULTIVITAMIN PLUS IRON) 27-0.8 MG TABS documented as of this encounter Plan of Treatment Not on filedocumented as of this encounter Visit Diagnoses Not on filedocumented in this encounter
--- OUTSIDE RECORDS SUMMARY | 2021-12-17 15:11 | XMS_ITS | Encounter Summary ---
:1980 Author Organization [place] Address [address] [place] [address]. [place] [address] Care Team Providers Name Role Phone Unavailable Primary Care Provider Unavailable Reason for Visit (Routine) - Closed Specialty Diagnoses / Procedures Referred By Contact Refer red To Contact Radiology Diagnoses US OB 2-3 TRIMESTER* Procedure Notes: POSITIVE TEST,SIZES, DATES Ur Ultrasound Procedures RADIOLOGY [address] [place] [phone] Phone: Referral ID Status Reason Start Date Expiration Date Visits Requ ested Visits Authorized [id number] Closed 04/26/2011 04/25/2012 1 1 Encounter Details Date Type Department Care Team Description 04/28/2011 Hospital Encounter [facility] Radha Navarro sitive [facility] Imaging MD Андрей test [address] [place] [address] Nenz[place] (Work) [place] [address] Social History Tobacco Use Types Packs/Day Years Used Date Smoking Tobacco: Never Assessed Sex Assigned at Date Recorded Not on file documented as of this encounter Plan of Treatment Not on filedocumented as of this encounter Procedures Procedure Name Priority Date/Time Associated Comments Diagnosis US OB LIMITED >14 Routine 04/28/2011 5:27 PM Positive pregnanc y Results for this WEEKS WO CDT test procedure are in MEASUREMENT the results section. documented in this encounter Results US OB limited 1 + fetuses (04/28/2011 5:27 PM CDT) Anatomical Region Laterality Modality Abdomen/Pelvis Other Specimen (Source) Anatomical Collection Method Collection Time Re ceived Time Location / / Volume Laterality 04/28/2011 5:27 PM CDT Impressions 04/29/2011 10:05 AM CDT EXAM: ?OB ultrasound 04/28/2011. CLINICAL HISTORY: ?Check dating. COMPARISON: ?None. FINDINGS: ?The placental location is anterior. There is no placenta previa. Presentation is cephalic. Biparietal diameter is 38 corresponding to 17 weeks 5 days. Head circumference 145 mm corresponding to 17 weeks 6 days Abdominal circumference 127 mm correspon ding to 18 weeks 2 days. Femur length 25 mm corresponding to 17 w eeks 5 days cardiac activity is identified at 152 beats per minute. IMPRESSION: ?Single living intrauter ine gestation with estimated ultrasound age 18 weeks 0 days, correspo nding to EDC of 09/29/2011. I have personally reviewed the image and initial interpretation and agree with the findings. Radha Navarro MD IMG US ORDERABLES documented in this encounter Visit Diagnoses Diagnosis Positive test examination or test, positive result documented in this encounter
--- OUTSIDE RECORDS SUMMARY | 2021-12-17 15:11 | XMS_ITS | Encounter Summary ---
:1980 Author Organization [place] Address [address] [facility] [place] [address] Care Team Providers Name Role Phone Andreas Patel MD Primary Care Provider Caitlin Ballesteros MD Primary Care Provider Lisa Dewitt DO Primary Care Provider Bebeto Roth MD Unavailable Astrid Rios PA-C Unavailable [facility] Primary Care Provider + Keri Elias MD Primary Care Provider Unavailable Francisco Metz MD Primary Care Provider [phone] Francisco Metz MD Unavailable [phone] Kenton Katz MD Unavailable Unavailable Karen Veliz DO Primary Care Provider Kenton Katz MD Unavailable Unavailable Kaern Veliz DO Unavailable Encounter Details Date Type Department Care Team Description 07/14/2011 Office Visit-[facility] INTERFACE P DEPT Social History Tobacco Use Types Packs/Day Years Used Date Smoking Tobacco: Never Assessed Sex Assigned at Date Recorded Not on file documented as of this encounter Progress Notes SY UMP ULTRASOUND - 07/14/2011 9:10 AM CDT Drill Operator: ADOLFO CURRY Status: Amended, Final Encounter: 2011-07-14 09:10:00.000 Type: FM Ultrasound Active Problems Acne Vulgaris (706.1) Anxiety (300.00) Care Coordinated By; Tier 0 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 US 2nd & 3rd Trimester Ultrasound Report Primary MD: Dr Navarro Painter Chassis: Latesha Harley Indications: size less than dates P: 2 Machine: TellApart 5 Pro FHR: 143 bpm Fluid:Normal TJ: 18.4 cm Placenta Location: anterior number:Jimenez Presentation: Vertex SURVEY Heart:(out flow tracts) as seen Normal Umbilical Cord: Insertion: Normal Spine: L/S Normal MEASUREMENTS:(Hadlock) BPD: 6.7 cm 27wks HC: 25.6 cm 27wks 5d AC: 22.9 cm 27wks 2d FL: 5.3 cm 28wks 1d EFW 1103g, 2lb 7oz Weight Percentile: 5%tile CONCLUSIONS: 1st u/s done at the hospital By 1st US EGA : 29wks VINCENT : 09/29/2011 By today's U/S EGA : 27wks 2d +/-2 to 3 wks VINCENT U/S: 10/11/2011 Ultrasound Measurements are consistent with LMP and previous US Follow up Ultrasound as clinically indicated Patient not informed about conclusions of this ultrasound during the visit. Attending Note Images reviewed and agree with documentation. Follow up as clinically indicated. Amended By: August Ontiveros ; 07/19/2011 9:17 AM CLASSIFIED ADVERTISING CLERK. Signature Signed By: Latesha Harley ; 07/14/2011 9:45 AM CLASSIFIED ADVERTISING CLERK. Signed By: August Ontiveros M.D.; 07/19/2011 9:17 AM CLASSIFIED ADVERTISING CLERK; Author. SIFIED ADVERTISING CLERK documented in this encounter Plan of Treatment Not on filedocumented as of this encounter Visit Diagnoses Not on filedocumented in this encounter Care Teams Experimental Welder Relationship Specialty Start Date End Date Andreas Patel MD PCP - General 10/05/11 10/07/11 [facility] [address] [place] [address] Caitlin Ballesteros MD PCP - General 10/08/11 08/11/13 Lisa Dewitt DO PCP - General 08/12/13 07/15/14 [facility] [address] [place], [place] [phone] Clinic - [facility] PCP - General 07/16/14 03/11/15 [facility] [address] [place] [address] Keri Elias PCP - General Family Practice 03/12/15 9 MD Isaías Glez Mitchell PCP - General Family Practice 11/14/18 04/02/20 MD Stevie Karen Veliz, PCP - General Family Medicine 04/03/20 DO [address] [place] [address] Bebeto Roth MD Orthopedics 07/09/[address] [place] [id number] Astrid Rios PA-C Physician Core Maker Helper Physician Core Maker Helper - 07/09/14 Surgical Francisco Metz Assigned PCP 07/04/19 02/01/20 MD Stevie [address] [place] [id number] Kenton Katz Assigned PCP 02/02/20 08/27/20 MD Feliberto NO INFO AVAILABLE Kenton Katz Assigned Endocrinology 08/28/20 07/23/21 MD Feliberto Provider NO INFO AVAILABLE Karen Veliz, Assigned PCP 08/28/20 DO [address] [place] [id number] documented as of this encounter
--- OUTSIDE RECORDS SUMMARY | 2021-12-17 15:11 | XMS_ITS | Encounter Summary ---
:1980 Author Organization [place] Address [facility] [place] [address] Care Team Providers Name Role Phone Caitlin Ballesteros MD Primary Care Provider Reason for Visit Reason Onset Date Comments Refill Request 10/30/2012 Encounter Details Date Type Department Care Team Description 10/30/2012 Refill [facility] Jennifer Ballesteros MD Refill Request Clinic [address] [facility] [place], [place] [address] [place] [address] [phone] (Wo rk) Social History Tobacco Use Types Packs/Day Years Used Date Smoking Tobacco: Passive Smoke Exposure - Never Smoker Alcohol Use Standard Drinks/Week Comments No 0 (1 standard drink = 0.6 oz pure alcoho l) Sex Assigned at Date Recorded Not on file documented as of this encounter Miscellaneous Notes Telephone Encounter - Sharad Duque CMA - 10/30/2012 1:11 PM CDT [facility] Family Medicine phone call message- patient requesting a refill: Full Medication Name: minocycline Dose: 100MG tablets Pharmacy confirmed as [facility] [id number] [place] [address] [phone] : Yes Additional Comments: The patient said the pharmacy faxed the refill request Monday in the PM. I let her know I will send high priority message to the nurse to fill today and the pharmacy will call whenit is ready to pick pulling machine tender. Thanks! OK to leave a message on voice mail? Yes Primary language: Luxembourger Manager Client Service needed? No Call taken on October 30, 2012 at 1:11 PM by SHARAD DUQUE documented in this encounter Plan of Treatment Not on filedocumented as of this encounter Visit Diagnoses Diagnosis Acne vulgaris - Primary Other acne documented in this encounter Care Teams Preschool Education Director Relationship Specialty Start Date End Date Caitlin Ballesteros MD PCP - General 10/08/11 08/11/13 documented as of this encounter
--- OUTSIDE RECORDS SUMMARY | 2021-12-17 15:11 | XMS_ITS | Encounter Summary ---
:1980 Author Organization [place] Address [address] [facility] [place] [address] Care Team Providers Name Role Phone Caitlin Ballesteros MD Primary Care Provider Reason for Visit Reason Comments Abstract Encounter Details Date Type Department Care Team Description 12/19/2011 Abstract [facility] Abstract, Provider [address], [address] [place], [place] [address] Social History Tobacco Use Types Packs/Day Years Used Date Smoking Tobacco: Never Alcohol Use Standard Drinks/Week Comments No 0 (1 standard drink = 0.6 oz pure alcoho l) Sex Assigned at Date Recorded Not on file documented as of this encounter Plan of Treatment Not on filedocumented as of this encounter Visit Diagnoses Not on filedocumented in this encounter Care Teams Tellers Supervisor Relationship Specialty Start Date End Date Caitlin Ballesteros MD PCP - General 10/08/11 08/11/13 documented as of this encounter
--- OUTSIDE RECORDS SUMMARY | 2021-12-17 15:11 | XMS_ITS | Encounter Summary ---
:1980 Author Organization [place] Address [address] [place] [address] Care Team Providers Name Role Phone Andreas Patel MD Primary Care Provider Caitlin Ballesteros MD Primary Care Provider Lisa Dewitt DO Primary Care Provider Bebeto Roth MD Unavailable Astrid Rios PA-C Unavailable [facility] Primary Care Provider + Keri Elias MD Primary Care Provider Unavailable Francisco Metz MD Primary Care Provider [phone] Francisco Metz MD Unavailable [phone] Kenton Katz MD Unavailable Unavailable Encounter Details Date Type Department Care Team Description 08/04/2011 PRE VISIT UR ANESTHESIA Susana Quinteros MD [facility], [address] [place], [place] [phone] [place] [address] (Wo rk) Social History Tobacco Use Types Packs/Day Years Used Date Smoking Tobacco: Never Assessed Sex Assigned at Date Recorded Not on file COVID-19 Exposure Response Date Recorded In the last month, have you been in contact Unable to assess 01/23/2020 7:04 AM INTERACTIVE MEDIA SPECIALIST with someone who was confirmed or suspected to have Coronavirus / COVID-19? documented as of this encounter Plan of Treatment Not on filedocumented as of this encounter Visit Diagnoses Not on filedocumented in this encounter Care Teams Senior Administrative Support Relationship Specialty Start Date End Date Andreas Patel MD PCP - General 10/05/11 10/07/11 [facility] [address] [place], [place] [phone] Caitlin Ballesteros MD PCP - General 10/08/11 08/11/13 Lisa Dewitt DO PCP - General 08/12/13 07/15/14 [facility] [address] [place], [place] [phone] Clinic - Angela Laboy PCP - General 07/16/14 6 [facility] [address] [place], [place] [phone] Keri Elias PCP - General Family Practice 03/12/15 9 MD Isaías Glez Mitchell PCP - General Family Practice 11/14/18 04/02/20 MD Stevie Bebeto Roth MD Orthopedics 07/09/[address] [id number] Astrid Rios PA-C Physician Inverform Machine Operator Physician Inverform Machine Operator - 07/09/14 Surgical Francisco Metz Assigned PCP 07/04/19 02/01/20 MD Stevie [address] [place], [place] [address] Kenton Katz Assigned PCP 02/02/20 08/27/20 MD Feliberto NO INFO AVAILABLE documented as of this encounter
--- OUTSIDE RECORDS SUMMARY | 2021-12-17 15:11 | XMS_ITS | Encounter Summary ---
:1980 Author Organization [place] Address [address] [place] [address]. [place] [address] Care Team Providers Name Role Phone Andreas Patel MD Primary Care Provider Reason for Visit Reason Comments Contractions every 6-12 minutes, became m ore painful the last two hours Auth/Cert - Closed Specialty Diagnoses / Procedures Referred By Contact Refer red To Contact media developer Diagnoses maternity*vincent: 09/19/2011/labor [id number] Zzur peteob [address] [place] [address] Phone: Referral ID Status Reason Start Date Expiration Date Visits Requ ested Visits Authorized [id number] Closed 1 1 Encounter Details Date Type Department Care Team Description 10/04/2011 - Hospital Encounter JOSE CRUZ SERNA Weston, , subsequent (Prima ry Dx); 10/07/[address] [place] [address] [place] [address] [address] [place] [address] Social History Tobacco Use Types Packs/Day Years Used Date Smoking Tobacco: Never Alcohol Use Standard Drinks/Week Comments No 0 (1 standard drink = 0.6 oz pure alcoho l) Sex Assigned at Date Recorded Not on file documented as of this encounter Last Filed Vital Signs Vital Sign Reading Time Taken Comments Blood Pressure 115/63 10/07/2011 8:04 AM CDT Pulse 97 10/07/2011 8:04 AM CDT Temperature 36.5 ??C (97.7 ??F) 10/07/2011 8:04 AM CDT Respiratory Rate 18 10/07/2011 8:04 AM CDT Oxygen Saturation 99% 10/07/2011 1:00 AM CDT Inhaled Oxygen Concentration - - Weight - - Height - - Body Mass Index - - documented in this encounter Discharge Summaries Aditi Boyer MD - 10/07/2011 11:56 AM CDT Images from the original note were not included. [facility] Post- Discharge Summary Jocelin Garg Age: [age] year old Date of : 1980 Date of Admission: 10/04/2011 Date of Discharge:: 10/07/2011 Admitting Physician: August Ontiveros MD Discharge Physician: Dr. Boyer. Home clinic: [facility] Admission Diagnoses: Discharge Diagnosis: Normal spontaneous vaginal delivery Intrauterine at 40+5 weeks gestation Patient Active Problem List Diagnoses ??? Adolescent idiopathic scoliosis ??? , subsequent Medications Prior to Admission: Prescriptions prior to admission Medication Sig Dispense Refill ??? Vit-Fe Fumarate-FA ( MULTIVITAMIN PLUS IRON) 27-0.8 MG TABS Take 1 tablet by mouth daily. ??? OMEPRAZOLE PO Take by mouth. ??? DISCONTD: Ondansetron HCl (ZOFRAN PO) Take 4 mg by mouth every 6 hours as needed. Discharge Medications: Current Discharge Medication List START taking these medications Details acetaminophen (TYLENOL) 325 MG tablet Take 2 tablets by mouth every 4 hours as needed for pain or fever (fever greater than 102??F). Qty: 120 tablet, Refills: 0 Associated Diagnoses: , subsequent ibuprofen (ADVIL,MOTRIN) 400-800 mg tablet Take 1-2 tablets by mouth every 6 hours as needed (cramping). Qty: 90 tablet, Refills: 0 Associated Diagnoses: , subsequent senna-docusate (SENOKOT-S;PERICOLACE) 8.6-50 MG per tablet Take 1-2 tablets by mouth 2 times daily. Qty: 60 tablet, Refills: 0 Associated Diagnoses: Anemia ferrous sulfate 325 (65 FE) MG tablet Take 1 tablet by mouth 2 times daily. Qty: 60 tablet, Refills: 2 Associated Diagnoses: Anemia CONTINUE these medications which have NOT CHANGED Details Vit-Fe Fumarate-FA ( MULTIVITAMIN PLUS IRON) 27-0.8 MG TABS Take 1 tablet by mouth daily. OMEPRAZOLE PO Take by mouth. STOP taking these medications Ondansetron HCl (ZOFRAN PO) Comments: Reason for Stopping: Consultations: No consultations were requested during this admission Brief History of Labor: On 10/05/2011 at 5:42am, this 31 year old year old under intrathecal analgesia delivered a viable Female infant weighing 7lbs 10oz with scores of 8 at 1 min and 9 at 5 min. Hospital Course (HPI): The patient's hospital course was unremarkable. On discharge, her pain was controlled with ibuprofenand tylenol. Vaginal bleeding is decreased. Voiding without difficulty. Ambulating well and tolerating a normal diet. No fever. Patient is bottle feeding. Infant is stable. She was discharged on post- day #2. Contraception plan:depo provera - on post clinic visit. . D/C Physical Exam: Filed Vitals: 10/06/11 1502 10/06/11 2132 10/07/11 0100 10/07/11 0804 BP: 113/64 104/62 114/69 115/63 Pulse: 95 89 87 97 Temp: 98.4 ??F (36.9 ??C) 98.9 ??F (37.2 ??C) 98.4 ??F (36.9 ??C) 97.7 ??F (36.5 ??C) TempSrc: Oral Oral Oral Oral Resp: 16 18 18 18 SpO2: 99% GENERAL: healthy, alert and no distress RESPIRATORY: No increased work of breathing, good air exchange, clear to auscultation bilaterally, no crackles or wheezing CARDIOVASCULAR: regular rate and rhythm, normal S1 and S2, and no murmur noted ABDOMEN: soft, Minimally tender. Fundal height at level of umbilicus - 2 cm. Firm and non tender. EXTREMITIES: no edema, non-tender . Post- hemoglobin: Hemoglobin Date Value Range Status 10/06/2011 8.2* 11.7 - 15.7 g/dL Final Discharge Instructions and Follow-Up: Discharge diet: Regular Discharge activity: Activity as tolerated Discharge follow-up: Follow up with primary care provider in 6 weeks Anemia- Hb- 8.2 - prescribed ferrous sulfate. Discharge Disposition: Discharged to home Miracle Teran,PGY1 [facility]. Attestation: This patient has been seen and evaluated by me, Aditi Boyer MD. Seen and discussed with the resident Dr Teran and [facility]'s Team. I agree with the findings and plan in this note. I have reviewed today's vital signs, medications, labs and imaging. Aditi Boyer MD MD [facility] documented in this encounter Discharge Instructions Discharge InstructionsBeto Ordonez RN - 10/07/2011 1:53 PM CDT [facility] Vaginal Delivery or Discharge Instructions Activity: Go back to your normal activities, except pelvic rest for 6 weeks. Diet: You may eat a regular diet. Drink plenty of fluids. Call your Doctor or Technical Artist if you have any of these symptoms: * You soak a sanitary pad with blood within 1 hour, or you see clots larger than a golf ball. * Bleeding that lasts more than 6 weeks. *Bad-smelling fluid that comes out of your vagina. *A fever above 100.4 degrees Fahrenheit (38.4 degrees Celsius) with or without chills. * Severe pain, cramping, or tenderness in your lower belly area. * Increased pain, swelling, redness or fluid around your stitches. * A need to urinate more frequently (use the toilet more often), more urgently (use the toilet very quickly), or it tucker when you urinate. * Redness, swelling, or pain around a vein in your leg. * Problems coping with sadness, anxiety, or depression. * Problems , or a red or painful area on your breast. * You have questions or concerns after you return home. Immunization History Administered Date(s) Administered ??? TDAP (ADACEL AGES 11-64) 10/05/2011 documented in this encounter Medications at Time of Discharge Medication Sig Dispensed Refills Start Date End Date acetaminophen (TYLENOL) Take 2 tablets by 120 tablet 0 10/0606/21/2012 325 MG tabletIndications: mouth every 4 hours , subsequent as needed for pain or fever (fever greater than 102??F). ferrous sulfate 325 (65 Take 1 tablet by 60 tablet 2 201112/22/2011 FE) MG tabletIndications: mouth 2 times Anemia daily. ibuprofen (ADVIL,MOTRIN) Take 1-2 tablets by 90 tablet 0 06/21/2012 400-800 mg mouth every 6 hours tabletIndications: as needed , subsequent (cramping). OMEPRAZOLE PO Take by mouth. 0 012 Vit-Fe Take 1 tablet by 0 09/2011 Fumarate-FA ( mouth daily. MULTIVITAMIN PLUS IRON) 27-0.8 MG TABS senna-docusate Take 1-2 tablets by 60 tablet 0 10/06/2011 1 02/20/2011 (SENOKOT-S;PERICOLACE) mouth 2 times 8.6-50 MG per daily. tabletIndications: Anemia documented as of this encounter Progress Notes Valarie Moore MD - 10/06/2011 9:29 AM CDT Images from the original note were not included. [facility] Progress Note October 06, 2011 9:30 AM Interval History: Jocelin Garg is a 31 year old female P2123, with history of an on 10/05/2011. Patent was concerned of a possible swelling over her intrathecal injection site today. Pain controlled? With PRN ibuprofen Ambulating? As tolerating Regular diet? As tolerating Voiding? No BM yet, however patient is passing flatus Lochia? Similar to period - no large clots ? Not - bottle feeding Contraception? Patient is interested in a depot provera shot. Physical Exam: Filed Vitals: 10/05/11 1035 10/05/11 1620 10/06/11 0215 10/06/11 0700 BP: 108/69 105/66 103/70 94/60 Pulse: 89 96 99 80 Temp: 97.9 ??F (36.6 ??C) 98.1 ??F (36.7 ??C) 98.1 ??F (36.7 ??C) 97.9 ??F (36.6 ??C) TempSrc: Oral Oral Oral Oral Resp: 18 17 18 SpO2: 99% 99% GENERAL: healthy, alert and no distress RESPIRATORY: No increased work of breathing, clear to auscultation bilaterally, no crackles or wheezing CARDIOVASCULAR: Regular rate and rhythm, normal S1 and S2, and no murmur noted ABDOMEN: normal bowel sounds, soft, non-tender Fundal height at level of umbilicus - 1 cm. Firm and non tender. EXTREMITIES: NO edema, non-tender - intra thecal injection site pain - on inspection and palpation- non erythematous, no increased swelling. Slightly tender on palpation of left SI joint. Data: Hemoglobin Date Value Range Status 10/06/2011 8.2* 11.7 - 15.7 g/dL Final 07/19/2011 11.0* 11.7-15.7 g/dl Final Lab Results Component Value Date RH Pos 04/20/2011 RUBELLAABIGG 48 04/20/2011 Assessment and Plan: Jocelin Garg is a 31 year old PPD#1 s/p .. L&D complications: Post-dates 40+6 VINCENT- 09/29/2011. Patient Active Problem List Diagnoses ??? Adolescent idiopathic scoliosis ??? , subsequent Pain: not currently Heme: 8.2 GI: ADAT Encourage ambulation Baby feeding by bottle Contraception: depot provera shot Influenza vaccine: n/a at this time Rh O positive: Rhogam not indicated Rubella immune: MMR not indicated Tdap (for pertussis): administered 10/05/2011 Counseled about: Contraception - patient considering depot provera at a later date. Dispo: Routine post- cares, anticipate DC home PPD# 2. [facility] PGY 1 Pager No. [phone] Attestation: This patient has been seen and evaluated by me, Valarie Moore. Seen and discussed with the resident Dr Teran and [facility] Team. I agree with the findings and plan in this note. I have reviewed today's vital signs, medications, and labs. Pt is PPD#1 s/p at term, doing well,evidence of anemia and will d/c with iron supplements. Anticipate d/c tomorrow on PPD#2. Valarie Moore MD [facility] Jenae Wilson RN - 10/05/2011 11:06 AM CDT Patient nauseated and has had emesis times two since coming to the floor. Got an order for Zofran IV4mg and gave to patient for her nausea. Patient had another 200 ml emesis. Will continue to monitor to see if she continues to have emesis. August Ontiveros MD - 10/05/2011 6:37 AM CDT Images from the original note were not included. Delivery Summary Jocelin Garg Age: [age] year old Date of : 1980 Primary care provider: Andreas Patel Home Clinic: [facility] On 10/05/2011 at 0542, this 31 year old year old under Intrathecal analgesia delivered a viable Female weighing 3450 with scores of 8 at 1 min and 9 at 5 min. Labor was spontaneous. Complications: None Stage 1: hr, min Patient's GBS status was positive. Patient received Penicillin 4 hours prior to delivery. Membrane status was AROM, Time 0348, Fluid was Meconium stained. Rupture time: 3:48 AM. Analgesia provided: Intrathecal Stage 2: hr, min Delivery to a sterile field was via . Infant was bulb suctioned at delivery. Cord was clamped and cut and the infant was handed to waiting mother. Cord blood wassent for ABO analysis. Stage 3: hr, min Placental delivery was spontaneous, intact, with a 3 vessel cord. IV oxytocin was given. The perineum was inspected and showed 2nd degree tear. repaired with 3-0 vicryl sutures. Sponge Count Correct Yes Needle Count Correct Yes Adequate hemostasis acheived. EBL: 400 mL. Mother and infant in stable condition. Present at Delivery: Dr. Ontiveros , staff Dr. Patel, PGY-2 Nurse: KENNY Jonas PGY-2 Family Medicine [facility], [place] Pager : [phone] August Ontiveros MD Faculty [facility] August Ontiveros MD - 10/05/2011 4:08 AM CDT [facility] Intrapartum Progress Note October 05, 2011 4:11 AM SUBJECTIVE: Doing well. Patient reports contractions every 3-5 minutes and denies vaginal bleeding or loss of fluids. movement is Normal. OBJECTIVE: Patient Vitals for the past 8 hrs: BP Temp Temp src Pulse Resp 10/04/11 2355 131/71 mmHg 98.4 ??F (36.9 ??C) Oral 101 20 Gen: no apparent distress, resting comfortably Abd: Gravid. EFW: 3000g Sterile Vaginal Exam: Membranes: AROM Cervix: 8/90/-1 Consistency: soft Presentation:Cephalic Monitoring: External Monitor, FHT: Baseline 140 bpm. Variability is moderate (5-25 bpm), Accelerations are Present, decelerations are Absent ., TOCO: Contractions every 3-5 minutes and palpate strong., Tracing is Category 1. ASSESSMENT and PLAN: Jocelin aGrg is a 31 year old at 40w6d in active labor. Patient Active Problem List Diagnoses ??? Adolescent idiopathic scoliosis ??? , subsequent 1. Labor: spontaneous. active labor Progressing well. Continue expectant management. Plan to reassess in two hours. 2. Heart Rate Tracing: category one 3. GBS positive. Antibiotics are Indicated and have been started . 4. Pain Management: Patient has received Nubain and has had ITN August Ontiveros MD - 10/05/2011 1:32 AM CDT October 05, 2011 Jocelin Garg [id number] OB Admit History & Physical Ms. Irma Garg is a patient of Andreas Ramsay and partner Amanda from [facility]. She is a 31 year old female with an Patient's last menstrual period was 12/27/2010.. Her Estimated Date of Delivery: Estimated Date of Delivery: Sep 29, 2011 , making her 40+ wks reporting She reports regular contractions starting at 1800 on the . She denies fluid leakage. She denies bleeding per vagina but reports some mucous discharge.. Reported movement is normal. Estimated Body mass index is 29.76 kg/(m^2) as calculated from the following: Height as of 09/22/11: 5' 3(1.6 m). Weight as of 09/22/11: 168 lb(76.204 kg). Her course has been mildly complicated by borderline SGA with one US at 24 weeks which was 5th%tile later follow US showed EFW in the normal range. Labs ABO O 04/20/2011 , [id number] Pos 04/20/2011 Hemoglobin Date Value Range Status 07/19/2011 11.0* 11.7-15.7 (g/dl) Final Estimated Weight = 3000 gm Her OB history: History Social History ??? Marital Status: Single Spouse Name: N/A Number of Children: N/A ??? Years of Education: N/A Occupational History ??? Not on file. Social History Main Topics ??? Smoking status: Never Smoker ??? Smokeless tobacco: Not on file ??? Alcohol Use: No ??? Drug Use: No ??? Sexually Active: Other Topics Concern ??? Not on file Social History Narrative ??? No narrative on file Past Medical History Diagnosis Date ??? Abnormal Pap smear in past- normal since then ??? Anemia with ??? Complication of anesthesia Past Surgical History Procedure Date ??? C spinal fusion,ant,ea adnl level 2010 Current Facility-Administered Medications Medication ??? lactated ringers solution ??? penicillin G potassium [id number] UNIT injection ??? lactated ringers infusion ??? lactated ringers BOLUS 500 mL ??? lactated ringers BOLUS 1,000 mL Or ??? lactated ringers BOLUS 500 mL ??? acetaminophen (TYLENOL) tablet 650 mg ??? naloxone (NARCAN) injection 0.1-0.4 mg ??? ondansetron (ZOFRAN) injection 4 mg ??? oxytocin (PITOCIN) injection 10 Units ??? oxytocin (PITOCIN) 20 units in 0.9% NaCl 1000 mL ??? misoprostol (CYTOTEC) suppository 800 mcg ??? methylergonovine (METHERGINE) injection 200 mcg ??? carboprost (HEMABATE) injection 250 mcg ??? Lidocaine 1% injection 0.1-20 mL ??? ibuprofen (ADVIL,MOTRIN) tablet 800 mg ??? oxyCODONE-acetaminophen (PERCOCET) 5-325 MG per tablet 1 tablet ??? nalbuphine (NUBAIN) injection 10-20 mg Or ??? nalbuphine (NUBAIN) injection 10-20 mg ??? penicillin G potassium injection 5 Million Units Followed by ??? penicillin G potassium 2.5 Million Units in NaCl 0.9% 100 mL injection Allergies: Seasonal allergies History Social History ??? Marital Status: Single Spouse Name: N/A Number of Children: N/A ??? Years of Education: N/A Occupational History ??? Not on file. Social History Main Topics ??? Smoking status: Never Smoker ??? Smokeless tobacco: Not on file ??? Alcohol Use: No ??? Drug Use: No ??? Sexually Active: Other Topics Concern ??? Not on file Social History Narrative ??? No narrative on file No family history on file. ROS: C: NEGATIVE for fever, chills, change in weight E/M: NEGATIVE for ear, mouth and throat problems R: NEGATIVE for significant cough or SOB CV: NEGATIVE for chest pain, palpitations or peripheral edema Vitals: Filed Vitals: 10/04/11 2355 BP: 131/71 Pulse: 101 Temp: 98.4 ??F (36.9 ??C) Resp: 20 Weight: Wt Readings from Last 5 Encounters: 09/22/11 76.204 kg (168 lb) Alert Awake in NAD HEENT grossly normal Neck: no lymphadenopathy or thryoidomegaly Lungs CTA Back no spinal or CVAT Heart RRR without murmurs ABD gravid, 3000g on exam. Position by Quique's VTX Pelvic: No fluid noted, mucous tinged blood noted Presenting Part high -cephalic. Cervix is 5 cm / 90 % effaced at -2 station EXT: No edema or calf tenderness Neuro: Non focal, AO X3, MONITORING: Contractions: Every 3-5 minutes and moderate in character. Heart:External Monitor Baseline 140bpm (mean FHR over 10 minutes) Variability: A Moderate (6-25) Accelerations:(15 bpm X 15 sec) are present Decelerations: are absent Category one Assessment: IUP at 40w6d In active labor. Membranes are intact Patient's risk status: average GBS status is positve Plan: Will admit to With inpatient status Will call Andreas Cheek and partner Pain management plan Patient had consultation with anesthesia who informed her that epidural is not advisable because of her history of spinal fusion. August Ontiveros MD Family Medicine October 05, 2011 documented in this encounter H&P Notes August Ontiveros MD - 10/04/2011 11:53 PM CDT documented in this encounter OR Notes OR Anesthesia - August Ontiveros MD - 10/08/2011 10:03 PM CDT documented in this encounter Miscellaneous Notes Plan of Care - Beto Ordonez RN - 10/07/2011 2:42 PM CDT Problem: IP GENERAL POC-ADULT,OB,BEHAVIORAL FVCPM Goal: Individualization/Patient-Specific Goal (Adult,OB,Behavioral The patient and/or their labor union business representative will achieve their patient-specific goals related to the plan of care. The patient-specific goals include: To discharge today. Patient discharged today. Discharge instructions reviewed and home medications given with instruction. Patient verbalized understanding and denied further questions. Plan of Care - Gina Gordon RN - 10/06/2011 9:46 PM CDT Problem: IP GENERAL POC-ADULT,OB,BEHAVIORAL FVCPM Goal: Individualization/Patient-Specific Goal (Adult,OB,Behavioral The patient and/or their labor union business representative will achieve their patient-specific goals related to the plan of care. The patient-specific goals include: improved nausea and oral intake Outcome: Therapy, progress toward functional goals as expected Pt rates mild pain, medicated as ordered. Fundus firm below umbilicus lochia scant pt up independently in room. No further questions/concerns voiced Plan of Care - Italia Loving RN - 10/06/2011 1:53 PM CDT Problem: Following Vaginal Delivery (Obstetrics) Goal: Prevent/Manage Potential Problems Signs and symptoms of listed problems will be absent or manageable. Data: Vital signs and checks WDL. Patient eating and drinking normally. Patient able to empty bladder independently and is up ambulating. Patient performing self cares and is able to care for . Concerned about swelling to intrathecal site. Dr. Moore informed. Action: Patient medicated with ibuprofen upon request. Patient denied education but will ask questions if unsure. MD evaluated patient regarding concern with intrathecal site. Response: Positive attachment behaviors observed with infant. Recommended by MD to ice area of discomfort prn. Plan: Anticipate discharge on tomorrow with infant. Plan of Care - Amara Tripathi RN - 10/06/2011 5:00 AM CDT Problem: IP GENERAL POC-ADULT,OB,BEHAVIORAL FVCPM Goal: Individualization/Patient-Specific Goal (Adult,OB,Behavioral The patient and/or their labor union business representative will achieve their patient-specific goals related to the plan of care. The patient-specific goals include: improved nausea and oral intake Outcome: Improving No longer having nausea, tolerating fluids well and eating snacks Plan of Care - Marcella Rosas RN - 10/05/2011 10:14 PM CDT Problem: Following Vaginal Delivery (Obstetrics) Goal: Prevent/Manage Potential Problems Signs and symptoms of listed problems will be absent or manageable. Outcome: Improving Data: Vital signs within normal limits. checks within normal limits - see flow record. Patient eating and drinking normally. Patient able to empty bladder independently and is up ambulating.No apparent signs of infection. laceration healing well. Patient performing self cares and is able to care for . Pt complains of nausea and itching. Action: Patient declined pain meds throughout shift. Patient reassessed and patient stated she was comfortable. Patient education done about medications. See flow record. Zofran for nausea with relief,pt able to eat regular dinner. Order received for benadryl for itching. Response: Positive attachment behaviors observed with infant. Support persons present. Plan: Anticipate discharge on 10/06. Plan of Care - Jenae Wilson RN - 10/05/2011 12:36 PM CDT Data: Vital signs within normal limits. checks within normal limits - see flow record. Patient eating and drinking normally. Patient able to empty bladder independently and is up ambulating.No apparent signs of infection. Patient performing self cares and is able to care for infant. Action: Patient has not been medicated during the shift for for pain or cramping. Patient stated shewas comfortable. Patient education done about her feeling nauseated from the intrathecal she received during delivery of infant and was given Zofran IV 4mg. Response: Positive attachment behaviors observed with . Support persons present. Plan: Anticipate discharge on 10/07/2011. Plan of Care - Jocelin Lopez RN - 10/05/2011 8:53 AM CDT Problem: Following Vaginal Delivery (Obstetrics) Goal: Prevent/Manage Potential Problems Signs and symptoms of listed problems will be absent or manageable. Outcome: Improving Data: Jocelin Garg transferred to [facility] via wheelchair at 830. Baby transferred via parent's arms. Patient still nauseated and unable to void due to side effects from her ITN in labor. Patient asking for more time to void due to concern about getting a UTI (had one with a previous procedure and fearful of getting another UTI). Discussed allowing her another 2 hours to void and after that would likely need to cath her - discussed the importance of this related to keeping the uterus firm and notbleeding too much. Action: Receiving unit notified of transfer: Yes. Patient and family notified of room change. Reportgiven to Ce at 0815. Belongings sent to receiving unit. Accompanied by Registered Nurse. Orientedpatient to surroundings. Call light within reach. ID bands double-checked with receiving RN. Response: Patient tolerated transfer and is stable. Plan of Care - Jocelin Ann RN - 10/05/2011 7:30 AM CDT Problem: Labor (Obstetrics) Goal: Prevent/Manage Potential Problems Signs and symptoms of listed problems will be absent or manageable. Jocelin arrived in labor at 4/50/-1. Contractions became more uncomfortable and pt was asking for painmedicine. Dr. Ontiveros in to assess pt and nubain ordered. MDA came to consult if pt able to have ITN and quickly after placed it. Pt felt relief and able to rest. Baby EFM appropriate throughout labor. documented in this encounter Plan of Treatment Not on filedocumented as of this encounter Procedures Procedure Name Priority Date/Time Associated Diagnosis Comme nts HEMOGLOBIN Routine 10/06/2011 7:42 AM Results f or this CDT procedure are i n the results section . documented in this encounter Results (ABNORMAL) Hemoglobin (10/06/2011 7:42 AM CDT) P athologist Signature Hemoglobin 8.2 (L) 11.7 - 15.7 [facility] g/dL LAB Specimen Anatomical Collection Method Collection Time Receive d Time (Source) Location / / Volume Laterality Blood specimen 10/06/2011 7:42 AM 012 7:57 (specimen) CDT AM CDT Andreas Patel MD LAB - BLOOD ORDERABLES Performing Organization Address City/State/ZIP Code Phon e Number [facility] [address] [place] [address] [facility] documented in this encounter Visit Diagnoses Diagnosis , subsequent - Primary Supervision of other normal , subsequent Supervision of other normal Anemia Anemia, unspecified documented in this encounter Administered Medications Inactive Administered Medications - up to 3 most recent administrations Medication Order MAR Action Action Date Dose Rate Site acetaminophen (TYLENOL) tablet 650 Given 10/07/2011 1:04 PM CDT 650 mg mg 650 mg, Oral, EVERY 4 HOURS PRN, mild pain, fever greater than 102??F, Starting on Mon10/05/11 at 0634 Given 10/07/2011 8:20 AM CDT 650 mg diphenhydrAMINE (BENADRYL) capsule 25 mg Given 10/06/2011 5:53 AM CDT 25 mg 25 mg, Oral, EVERY 6 HOURS PRN, itching, Starting on Mon10/05/11 at 2208 Given 10/05/2011 10:24 PM CDT 25 mg ibuprofen (ADVIL,MOTRIN) tablet 400-800 mg Given 10/07/2011 10:04 AM CDT 800 mg 400-800 mg, Oral, EVERY 6 HOURS PRN, other, cramping, Starting on Mon10/05/11 at 0634, Max dose 3200 mg/day. Given 10/07/2011 4:00 AM CDT 800 mg Given 10/06/2011 9:12 PM CDT 800 mg lactated ringers infusion New Bag 10/05/2011 1:09 AM CDT 1,000 mLs 125 mL/hr at 125 mL/hr, Intravenous, CONTINUOUS, Starting on Mon10/05/11 at 0115, Until Mon10/05/11 at 0844 lactated ringers solution JOCELIN ANN: cabinet override, 1 do se, Starting on Mon10/05/11 at 0103, Until Mon10/05/11 at 0109 lidocaine 1 % injection Starting on Mon10/05/11 at 0256, For 1 dose, JOCELIN ANN: cabinet override Lidocaine 1% injection 0.1-20 mL Given 10/05/2011 6:00 AM CDT 7 mLs 0.1-20 mL, Subcutaneous, ONCE PRN, episiotomy/laceration repair, Starting on Mon10/05/11 at 0059, For 1 dose, Available for provider administration after delivery. morphine (PF) (ASTRAMORPH / Given by Other Clinician 10/05/2011 2:52 AM CDT 10 mg DURAMORPH) injection 0.3 mg 0.3 mg, EPIDURAL, ONCE, On Mon10/05/11 at 0245, For 1 dose, given by Anesthesia Provider only nalbuphine (NUBAIN) injection 10-20 mg Given 10/05/2011 1:38 AM CDT 20 mg 10-20 mg, Intravenous, EVERY 90 MIN PRN, moderate to severe pain, Starting on Mon10/05/11 at 0101, Stop after 2 doses. Do not use if patient has a history of chronic opioid use or patient has received an opioid in the last 4 hours. ondansetron (ZOFRAN) injection 4 mg Given 10/05/2011 2:08 AM CDT 4 mg 4 mg, Intravenous, EVERY 6 HOURS PRN, nausea, vomiting, Administer over 2-5 Minutes, Starting on Mon10/05/11 at 0059, If nausea not resolved in 15 minutes, notify provider before proceeding to prochlorperazine (if ordered). ondansetron (ZOFRAN) injection 4 mg Given 10/05/2011 5:01 PM CDT 4 mg 4 mg, Intravenous, EVERY 6 HOURS PRN, nausea, vomiting, Administer over 2-5 Minutes, Starting on Mon10/05/11 at 1057 Given 10/05/2011 11:06 AM CDT 4 mg ondansetron (ZOFRAN-ODT) disintegrating tablet Given 0 10/05/2011 8:19 AM CDT 4 mg 4 mg 4 mg, Oral, EVERY 6 HOURS PRN, nausea, vomiting, Starting on Mon10/05/11 at 0235, With dry hands, peel back foil backing and gently remove tablet; do not push oral disintegrating tablet through foil backing; administer immediately on tongue and oral disintegrating tablet dissolves in seconds; then swallow with saliva; liquid not required. oxytocin (PITOCIN) 20 units in New Bag 10/05/2011 6:00 AM CDT 20 Units 999 mL/hr 0.9% NaCl 1000 mL 0-1,000 mL, Intravenous, CONTINUOUS PRN, provider discretion to treat or prevent uterine atony, Starting on Mon10/05/11 at 0059, Notify provider IF uterine atony and clarify with provider medication preference. IV to run per provider discretion to treat or prevent uterine atony. IV to continue until patient stable. Discontinue or saline lock per nurse discretion. oxytocin 20 units in 0.9% NaCl (PITOCIN) 20 Units/1000 mL infusion Starting on Mon10/05/11 at 0257, For 1 dose, JOCELIN ANN: cabinet override penicillin G potassium 2.5 Million Given 10/05/2011 5: 23 AM CDT 2.5 Million Units Units in NaCl 0.9% 100 mL injection Routine, 2.5 Million Units, Intravenous, EVERY 4 HOURS, First dose on Mon10/05/11 at 0515, To be given until delivery. penicillin G potassium [id number] UNIT inje ction Starting on Mon10/05/11 at 0104, For 1 d ose, JOCELIN ANN: cabinet override For IV use, attach vial to piggyback bag penicillin G potassium injection 5 Given 10/05/2011 1:14 AM CDT 5 Million Units Million Units Routine, 5 Million Units, Intravenous, ONCE, On Mon10/05/11 at 0115, For 1 dose, Loading Dose. Active upon active labor status. For IV use, attach vial to piggyback bag senna-docusate (SENOKOT-S;PERICOLACE) Given 10/07/2011 8:20 AM C DT 1 tablet 8.6-50 MG per tablet 1-2 tablet 1-2 tablet, Oral, 2 TIMES DAILY, First dose on Mon10/05/11 at 0800, Start with 1 tablet PO BID, If no bowel movement in 24 hours, increase to 2 tablets po BID. Hold for loose stools. Given 10/06/2011 9:12 PM CDT 1 tablet Given 10/06/2011 11:43 AM CDT 2 tablets sodium chloride (PF) 0.9% PF flush 3 mL Given 10/05/2011 8:20 AM CDT 3 mLs 3 mL, Intravenous, EVERY 8 HOURS, First dose on Mon10/05/11 at 0245, And Q1H PRN, to lock peripheral IV dormant line. documented in this encounter Active and Recently Administered Medications Times are shown in CDT. Scheduled Medication Order 10/05/2011 10/06/2011 10/07/2011 morphine (PF) (ASTRAMORPH / DURAMORPH) injection 0.3 m g (COMPLETED) 025 (Given by Other Clinician - Provider: Jocelin Ann RN - Comment: ITN, given by MDA) 0.3 mg, EPIDURAL, ONCE, Mon10/05/11 at 0 245, For 1 dose, given by Anesthesia Provider only penicillin G potassium 2.5 Million Units in NaCl 0.9% 100 mL injection (CANCELED) 0523 (Given - Provider: Jocelin Ann, KENNY) 2.5 Million Units, Intravenous, EVERY 4 HOURS, First dose on Mon10/05/11 at 0515, To be given until delivery. penicillin G potassium injection 5 Million Units (COMP LETED) 0114 (Given - Provider: Jocelin Ann RN) 5 Million Units, Intravenous, ONCE, Mon10/05/11 at 0115, For 1 dose, Loading Dose. Active upon active labor status. For IV use, attach vial to piggyback bag senna-docusate (SENOKOT-S;PERICOLACE) 8.6-50 MG per ta blet 1-2 tablet 30 (Not Given - Provider: Jenae Wilson RN - Reason: Other)2129 (Given - Provider: Marcella Rosas RN - Comment: per pt request) 1143 (Given - Provider: Italia Loving, KNENY)2111 (Given - Provider: Gina Gordon RN) 0820 (Given - Provider: Beto Ordonez RN) 1-2 tablet, Oral, 2 TIMES DAILY, First d ose on Mon10/05/11 at 0800, Start with 1 tablet PO BID, If no bowel movement in 24 hours, increase to 2 tablets po BID. Hold for loose stools. sodium chloride (PF) 0.9% PF flush 3 mL (CANCELED) 045 3 (Not Given - Provider: Jocelin Ann RN - Reason: IV Infusing)0820 (Given - Provider: Jocelin Lopez RN) 3 mL, Intravenous, EVERY 8 HOURS, First dose on Mon10/05/11 at 0245, And Q1H PRN, to lock peripheral IV dormant line. Continuous Medication Order 10/05/2011 10/06/2011 10/07/2011 lactated ringers infusion (CANCELED) 0109 (New Bag - P rovider: Jocelin Ann, KENNY) 1,000 mL, Intravenous, at 125 mL/hr, CONTINUOUS, Starting 03/02 at 0115 PRN Medication Order 10/05/2011 10/06/2011 10/07/2011 acetaminophen (TYLENOL) tablet 650 mg 0820 (Given - Provider: Beto Ordonez, KENNY)1304 (Given - Provider: Beto Ordonez, KENNY) 650 mg, Oral, EVERY 4 HOURS PRN, mild pa in, fever greater than 102??F, Starting Mon10/05/11 at 0634 diphenhydrAMINE (BENADRYL) capsule 25 mg (CANCELED) 22 24 (Given - Provider: Marcella Rosas RN) 0553 (Given - Provider: Amara Tripathi RN) 25 mg, Oral, EVERY 6 HOURS PRN, itching, Starting Mon10/05/11 at 2208 ibuprofen (ADVIL,MOTRIN) tablet 400-800 mg 0215 (Given - Provider: Amara Tripathi RN)1143 (Given - Provider: Italia Loving RN)2112 (Given - Provider: Gina Gordon, KENNY) 0400 (Given - Provider: Gina Gordon RN - Comment: unable to log into computer in pt room)1004 (Given - Provider: Beto Ordonez RN) 400-800 mg, Oral, EVERY 6 HOURS PRN, oth er, cramping, Starting Mon10/05/11 at 0634, Max dose 3200 mg/day. Lidocaine 1% injection 0.1-20 mL (COMPLETED) 0600 (Giv en - Provider: Jocelin Ann, KENNY) 0.1-20 mL, Subcutaneous, ONCE PRN, episi otomy/laceration repair, Starting Mon10/05/11 at 0059, For 1 dose, Available for provider administration after delivery. nalbuphine (NUBAIN) injection 10-20 mg (CANCELED) 0138 (Given - Provider: Jocelin Ann, KENNY) 10-20 mg, Intravenous, EVERY 90 MIN PRN, moderate to severe pain, Starting Mon10/05/11 at 0101, Stop after 2 doses. Do not use if patient has a history of chronic opioid use or patient has received an opioid in the last 4 hours. ondansetron (ZOFRAN) injection 4 mg (CANCELED) 0208 (G iven - Provider: Jocelin Ann RN) 4 mg, Intravenous, EVERY 6 HOURS PRN, na usea, vomiting, for 2 Minutes, Starting Mon10/05/11 at 0059, If nausea not resolved in 15 minutes, notify provider before proceeding to prochlorperazine (if ordered). ondansetron (ZOFRAN) injection 4 mg (CANCELED) 1106 (G iven - Provider: Jenae Wilson RN)1701 (Given - Provider: Marcella Rosas RN) 4 mg, Intravenous, EVERY 6 HOURS PRN, na usea, vomiting, for 2 Minutes, Starting Mon10/05/11 at 1057 ondansetron (ZOFRAN-ODT) disintegrating tablet 4 mg (C ANCELED) 0819 (Given - Provider: Jocelin Lopez, KENNY) 4 mg, Oral, EVERY 6 HOURS PRN, nausea, v omiting, Starting Mon10/05/11 at 0235, With dry hands, peel back foil backing and gently remove tablet; do not push oral disintegrating tablet through foil backin g; administer immediately on tongue and oral disintegrating tablet dissolves in seconds; then swallow with saliva; liquid not required. oxytocin (PITOCIN) 20 units in 0.9% NaCl 1000 mL (CANC ELED) 0600 (New Bag - Provider: Jocelin Ann, KENNY)0748 (Stopped - Provider: Jocelin Lopez, KENNY) 0-1,000 mL, Intravenous, CONTINUOUS PRN, provider discretion to treat or prevent uterine atony, Starting Mon10/05/11 at 0059, Notify provider IF uterine atony and clarify with provider medication prefer ence. IV to run per provider discretion to treat or prevent uterine atony. IV to continue until patient stable. Discontinue or saline lock per nurse discretion. documented in this encounter Care Teams Household Coordinator Relationship Specialty Start Date End Date Andreas Patel MD PCP - General 10/05/11 10/07/11 [facility] [address] [place] [address] documented as of this encounter
--- OUTSIDE RECORDS SUMMARY | 2021-12-17 15:11 | XMS_ITS | Encounter Summary ---
:1980 Author Organization [place] Address [facility] [place] [address] Care Team Providers Name Role Phone Caitlin Ballesteros MD Primary Care Provider Reason for Referral Specialty Diagnoses / Procedures Referred By Contact Refer red To Contact Kenton Hicks MD [place] [phone] Referral ID Status Reason Start Date Expiration Date Visits Requ ested Visits Authorized Reason for Visit Reason Comments Mass behind ear and knee for abou t a week Encounter Details Date Type Department Care Team Description 11/13/2012 Office Visit [facility] management (Primary Dx); Medicine Clinic MD Kenton Acne vulgaris; [address] [place] [address] Environmental allergies; [address] [facility] Skin nodule; [place], [place] Skin tag [id number] [phone] Social History Tobacco Use Types Packs/Day Years Used Date Smoking Tobacco: Passive Smoke Exposure - Never Smoker Alcohol Use Standard Drinks/Week Comments No 0 (1 standard drink = 0.6 oz pure alcoho l) Sex Assigned at Date Recorded Not on file documented as of this encounter Last Filed Vital Signs Vital Sign Reading Time Taken Comments Blood Pressure 116/73 11/13/2012 10:32 AM CDT Pulse 107 11/13/2012 10:32 AM CDT Temperature 36.7 ??C (98 ??F) 11/13/2012 10:32 AM CDT Respiratory Rate - - Oxygen Saturation 99% 11/13/2012 10:32 AM CDT Inhaled Oxygen Concentration - - Weight 72.1 kg (159 lb) 11/13/2012 10:32 AM CDT Height 160 cm (5' 3) 11/13/2012 10:32 AM CDT Body Mass Index 28.17 11/13/2012 10:32 AM CDT documented in this encounter Patient Instructions Patient InstructionsMarli Gonzales - 12/17/2012 3:01 PM CST Patient seen in Procedure clinic with on 11/22/12 @ 1:00p.m E GROUP MANAGER documented in this encounter Progress Notes Kenton Hicks MD - 11/17/2012 5:46 AM CDT HPI Comments: Azul Solis Britany presents as an established patient of Caitlin Ballesteros for follow up of: - Skin tags - has several tags over her neck that are itchy and bothersome. Would like these removedASAP. Has another large one near her L shoulder. - Lump behind ear - present for a week, a small nodule under the ear lobe. Has been trying to leave this alone, but has tried to pop it once or twice, with worsening of swelling and symptoms at the site. - Lump in thigh - this has been present for several months, but is itchy and bothersome. She requests removal of this lesion as well. - Acne/ control/allergies - requests med refills on these agents. Mass Pertinent negatives include no chills, fever, headaches, nausea, rash, sore throat or vomiting. Review of Systems Constitutional: Negative for fever, chills and weight loss. HENT: Negative for hearing loss, ear pain and sore throat. Gastrointestinal: Negative for heartburn, nausea and vomiting. Skin: Positive for itching. Negative for rash. Neurological: Negative for headaches. Physical Exam Constitutional: She is oriented to person, place, and time and well-developed, well-nourished, and in no distress. HENT: Right Ear: Tympanic membrane and external ear normal. Left Ear: Tympanic membrane and external ear normal. Pulmonary/Chest: Effort normal and breath sounds normal. No respiratory distress. Neurological: She is alert and oriented to person, place, and time. Gait normal. Skin: Skin is warm and dry. No rash noted. No erythema. Small nodule <5mm behind R ear. No redness nor streaking nor fluctuance. Several small pigmented skin tags over the neck. One large exophytic skin tag vs nevus over L anterior shoulder/chest, just medial to bra strap. Small nodule, roughly 5mm in diameter, within the dermis superior to the L knee. No fluctuance, doesnot apper to track, is not sore. BP 116/73 Pulse 107 Temp 98 ??F (36.7 ??C) (Oral) Ht 5' 3 (160 cm) Wt 159 lb (72.122 kg) BMI 28.17 kg/m2 SpO2 99% LMP 11/01/2012 Current Outpatient Prescriptions Medication ??? levonorgestrel-ethinyl estradiol (SEASONALE) 0.15-0.03 MG per tablet ??? minocycline (DYNACIN) 100 MG tablet ??? fluticasone (FLONASE) 50 MCG/ACT nasal spray ??? fluticasone (FLONASE) 50 MCG/ACT nasal spray ??? benzoyl peroxide 5 % gel Results for orders placed in visit on 06/21/12 URINALYSIS, MICRO IF (LABDAQ) Component Value Range Specific [place] Urine 1.010 1.005 - 1.030 pH Urine 6.5 4.5 - 8.0 Leukocyte Esterase UR 500/ul 2+ (*) Nitrite Urine neg Protein UR neg Glucose Urine norm Ketones Urine neg Urobilinogen mg/dL norm Bilirubin UR neg Blood UR neg URINE CULTURE Component Value Range Specimen Description Midstream Urine Special Requests Specimen received in preservative Culture Micro Value: 10 to 50,000 colonies/mL Mixed gram negative and positive teresa Multiple species present, probable perineal contamination. Susceptibility testing not routinely done Micro Report Status FINAL 06/22/2012 URINE MICROSCOPIC (LABDAQ) Component Value Range WBC Urine 5-10 RBC Urine None Epithelial Cells UR 2-5 Mucous Urine None Casts Urine None Crystal Urine None Bacteria Wet Prep Moderate [facility] Procedure Note Azul Sapna Garg is a patient of Caitlin Alexandra here for skin tag removal Indication: symptomatic lesions - pruritic Consent: Affirmation of informed consent was signed and scanned into the medical record. Risks, benefits and alternatives were discussed. Patient's questions were elicited and answered. Procedure safety checklist was completed: Yes Time Out (Pause for the Cause) completed: Yes Preoperative Diagnosis: Skin tags Postoperative Diagnosis: same Technique: Used curved iris scissor to remove 8 skin tags in the following locations: neck Skin prep isopropanol Anesthesia none EBL: none Complications: No Tolerance: Pt tolerated procedure well and was in stable condition. Follow up: Pt was instructed to call if bleeding, severe pain or foul smell. Follow up in 2-4 weeks. Resident: Kenton Hicks Faculty: Kenton Hicks MD present for and supervised this entire procedure. Azul was seen today for mass. Diagnoses and associated orders for this visit: Contraception management - levonorgestrel-ethinyl estradiol (SEASONALE) 0.15-0.03 MG per tablet; Take 1 tablet by mouth daily Acne vulgaris Nodule behind ear appears to be a small acne cyst. Pt asked to practice benign neglect. Separately, she was counseled on the dangers of getting while taking minocycline. She would not like to be at this time, but is not using protection. Given OCP and condoms. - minocycline (DYNACIN) 100 MG tablet; Take 1 tablet (100 mg) by mouth daily Environmental allergies - fluticasone (FLONASE) 50 MCG/ACT nasal spray; [place] 1-2 sprays into both nostrils daily Skin nodule Benign nodule in knee, consistent with intradermal or junctional nevus. - [facility] REF[facility]AL (Non-Behavioral Health) Skin tag Small tags removed by myself and medical student Celestino Acosta. Larger tag will be referred to procedure clinic. - REMOVAL OF SKIN TAGS, FIRST 15 - [facility] (Non-Behavioral Health) Options for treatment and follow-up care were reviewed with the patient and/or guardian. Azul Garg and/or guardian engaged in the decision making process and verbalized understanding of the options discussed and agreed with the final plan. - Kenton Hicks MD documented in this encounter Plan of Treatment Scheduled Referrals Name Type Priority Associated Diagnoses Order S jaye [facility] Referral Routine Skin tag Ordered: 11/17/2012 REFERRAL (Non-Behavioral Skin nodule Health) documented as of this encounter Procedures Procedure Name Priority Date/Time Associated Diagnosis Comme nts HC REMOVAL OF SKIN Routine 11/17/2012 5:55 AM CDT Skin tag TAGS, FIRST 15 documented in this encounter Visit Diagnoses Diagnosis Contraception management - Primary Unspecified contraceptive management Acne vulgaris Other acne Environmental allergies Allergic rhinitis, cause unspecified Skin nodule Localized superficial swelling, mass, or lump Skin tag Unspecified hypertrophic and atrophic co ndition of skin documented in this encounter Care Teams Replenishment Merchandising Associate Relationship Specialty Start Date End Date Caitlin Ballesteros MD PCP - General 10/08/11 08/11/13 documented as of this encounter
--- OUTSIDE RECORDS SUMMARY | 2021-12-17 15:11 | XMS_ITS | Encounter Summary ---
:1980 Author Organization [place] Address [address] [facility] [place] [address] Care Team Providers Name Role Phone Unavailable Primary Care Provider Unavailable Encounter Details Date Type Department Care Team Description 06/21/2011 Historic Results [facility] Leanne Navarro [place] MD Андрей [address] [place], [place] [phone] (Work) [place] [address] Social History Tobacco Use Types Packs/Day Years Used Date Smoking Tobacco: Never Assessed Sex Assigned at Date Recorded Not on file documented as of this encounter Plan of Treatment Not on filedocumented as of this encounter Procedures Procedure Name Priority Date/Time Associated Diagnosis Comme nts WET PREP (LABDAQ) Routine 06/21/2011 4:05 PM Resu lts for this CDT procedure are i n the results section. documented in this encounter Results Wet Prep (LabDAQ) (06/21/2011 4:05 PM CDT) [facility] Method Time Signature Yeast Wet Prep None [facility] RES[facility] Motile Negative [facility] Trichomonas Wet RESULTS Prep Clue Cells Wet None [facility] Prep RESULTS WBC WET PREP 5-10 [facility] RES[facility] Bacteria Wet Few [facility] Prep RESULTS pH Wet Prep <4.5 [facility] RES[facility] Odor Wet Prep None [facility] RES[facility] Specimen Anatomical Collection Method Collection Time Receive d Time (Source) Location / / Volume Laterality 06/21/2011 4:05 PM 2 4:05 CDT PM CDT Radha Navarro MD LAB - LABDAQ Performing Organization Address City/State/ZIP Code Phon e Number [facility] RESULTS documented in this encounter Visit Diagnoses Not on filedocumented in this encounter
--- OUTSIDE RECORDS SUMMARY | 2021-12-17 15:11 | XMS_ITS | Encounter Summary ---
:1980 Author Organization [place] Address [facility] [place] [address] Care Team Providers Name Role Phone Unavailable Primary Care Provider Unavailable Encounter Details Date Type Department Care Team Description 06/21/2011 Results Only [facility] Radha De La Fuente [address] [facility] MD Андрей [place], [place] [id number] [phone] Social History Tobacco Use Types Packs/Day Years Used Date Smoking Tobacco: Never Assessed Sex Assigned at Date Recorded Not on file documented as of this encounter Plan of Treatment Not on filedocumented as of this encounter Procedures Procedure Name Priority Date/Time Associated Comments Diagnosis NEISSERIA GONORRHOEAE Routine 06/21/2011 4:02 PM Results for this PCR CDT procedure are i n the results section. documented in this encounter Results Neisseria gonorrhoeae PCR (06/21/2011 4:02 PM CDT) Component Value Ref Test Analysis Performed At [facility] Range Method Time Signature Specimen Cervical [facility] Descrip N Gonorrhea Negative for N. gonorrhoeae rRNA by finishing powder press operator mediated amplification. [facility] PCR A negative result by transc ription [...] Organization Address City/State/ZIP Code Phon e Number [facility] [address] [address] [facility] documented in this encounter Visit Diagnoses Not on filedocumented in this encounter
--- OUTSIDE RECORDS SUMMARY | 2021-12-17 15:11 | XMS_ITS | Encounter Summary ---
:1980 Author Organization [place] Address [address] [facility] [place] [address] Care Team Providers Name Role Phone Andreas Patel MD Primary Care Provider Caitlin Ballesteros MD Primary Care Provider Lisa Dewitt DO Primary Care Provider Bebeto Roth MD Unavailable Astrid Rios PA-C Unavailable [facility] Primary Care Provider + Keri Elias MD Primary Care Provider Unavailable Francisco Metz MD Primary Care Provider [phone] Francisco Metz MD Unavailable [phone] Kenton Katz MD Unavailable Unavailable Karen Veliz DO Primary Care Provider Kenton Katz MD Unavailable Unavailable Karen Veliz DO Unavailable Encounter Details Date Type Department Care Team Description 09/22/2011 Office Visit-[facility] INTERFACE [facility] DEPT Social History Tobacco Use Types Packs/Day Years Used Date Smoking Tobacco: Never Alcohol Use Standard Drinks/Week Comments No 0 (1 standard drink = 0.6 oz pure alcoho l) Sex Assigned at Date Recorded Not on file documented as of this encounter Progress Notes SY UMP ULTRASOUND - 09/22/2011 2:00 PM CDT Office Services Representative: SMILEYS, ULTRASOUND Status: Amended, Final Encounter: 2011-09-22 14:00:00.000 Type: FM Ultrasound Active Problems Acne Vulgaris (706.1) Anxiety (300.00) Care Coordinated By; Tier 0 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 US Biophysical Profile Report Primary MD: Dr Patel /Dr Ballesteros / Dr Ontiveros Publishing Director: Latesha Harley Indications: pt. not feeling baby move. Dr. Franks asked for a BPP Machine Nokori 5 Pro EGA 39wks by Previous US Previous Standard Exam completed on and 07/14/2011 FETUS number: 1 Presentation: Vertex FHR: 143 bpm Fluid: normal: TJ: 13.7 cm PLACENTA Placenta Location: Anterior BPP-Testing Period 30 minutes movement 2 pts Breathing 0 pts Tone: 2 pts Amniotic Fluid Volume: 2 pts Total BPP Points 6/8 EFW 3114g, 6lb 14oz +- 1 # Weight Percentile: 23%tile CONCLUSIONS: BPP= 6/8 heart rate = 143 bpm TJ = 13.7 cm Azul was not feeling baby move and was having some contractions. I talked to Dr Franks after here ultrasound for growth to let her know about decreased motion and she ordered a BPP. The BPP results were 6/[address] Franks and Dr Davey sent her to the hospital following the u/s. Term pt with low FM and 6/8 BPP. Appropriate for further evaluation at triage. KP Amended By: Payton Franks ; 09/22/2011 3:03 PM SENIOR NET C DEVELOPER. Signature Signed By: Latesha Harley ; 09/22/2011 2:52 PM SENIOR NET C DEVELOPER. Signed By: Payton Franks M.D.; 09/22/2011 3:03 PM SENIOR NET C DEVELOPER; Author. Signed By: Aditi Boyer M.D.; 09/26/2011 2:03 PM SENIOR NET C DEVELOPER. OR NET C DEVELOPER SY [facility] ULTRASOUND - 09/22/2011 1:20 PM CDT Office Services Representative: PATRICIO, ULTRASOUND Status: Amended, Final Encounter: 2011-09-22 13:20:00.000 Type: FM Ultrasound Active Problems Acne Vulgaris (706.1) Anxiety (300.00) Care Coordinated By; Tier 0 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 US 2nd & 3rd Trimester Ultrasound Report Primary MD: Dr Patel / Dr Ontiveros /Dr Ballesteros Publishing Director: Latesha Halrey Indications: recheck growth Machine: Nokori 5 Pro FHR: 143 bpm Fluid:Normal TJ: 13.7 cm Placenta Location: anterior number:Jimenez Presentation: Vertex MEASUREMENTS:([place]) BPD: 8.9 cm 36wks 3d HC: 33.0 cm 37wks 5d AC: 33.6 cm 37wks 4d FL: 7.0 cm 36wks 2d EFW 3111g, 6lb 14oz Weight Percentile: 23%tile CONCLUSIONS: By 1st US EGA : 39wks VINCENT : 09/29/2011 By today's U/S EGA : 36wks 4d +/-2to 3 wks VINCENT U/S: 10/16/2011 Ultrasound Measurements are consistent with previous US Follow up Ultrasound as clinically indicated Patient not informed about conclusions of this ultrasound during the visit. Attending Note Images reviewed and agree with documentation. Amended By: August Ontiveros ; 09/26/2011 2:25 PM SENIOR NET C DEVELOPER. Signature Signed By: Latesha Harley ; 09/22/2011 2:41 PM SENIOR NET C DEVELOPER. Signed By: August Ontiveros M.D.; 09/26/2011 2:26 PM SENIOR NET C DEVELOPER; Author. OR NET C DEVELOPER documented in this encounter Plan of Treatment Not on filedocumented as of this encounter Visit Diagnoses Not on filedocumented in this encounter Care Teams Anvil Worker Relationship Specialty Start Date End Date Andreas Patel MD PCP - General 10/05/11 10/07/[address] [facility] [address] [place] [address] Caitlin Ballesteros MD PCP - General 10/08/11 08/11/13 Lisa Dewitt DO PCP - General 08/12/13 07/15/[address] [facility] [address] [place], [place] [phone] Clinic [facility], PCP - General 07/16/14 03/11/15 [facility] [address] [place] [address] Keri Elias PCP - General Family Practice 03/12/15 9 MD Isaías Glez Mitchell PCP - General Family Practice 11/14/18 04/02/20 MD Stevie Karen Veliz, PCP - General Family Medicine 04/03/[address] [place], [place] [id number] Bebeto Roth MD Orthopedics 07/09/14 [facility] [place] [id number] Astrid Rios PA-C Physician Medical Staff Director Physician Medical Staff Director - 07/09/14 Surgical Francisco Metz Assigned PCP 07/04/19 02/01/20 MD Stevie [address] [place] [address] Kenton Katz Assigned PCP 02/02/20 08/27/20 MD Feliberto NO INFO AVAILABLE Kenton Katz Assigned Endocrinology 08/28/20 07/23/21 MD Feliberto Provider NO INFO AVAILABLE Karen Veliz, Assigned PCP 08/28/20 DO [address] [place], [place] [phone] documented as of this encounter
--- OUTSIDE RECORDS SUMMARY | 2021-12-17 15:11 | XMS_ITS | Encounter Summary ---
:1980 Author Organization [place] Address [address] [facility] [place] [address] Care Team Providers Name Role Phone Unavailable Primary Care Provider Unavailable Encounter Details Date Type Department Care Team Description 08/04/2011 Historic Results [facility] Leanne Navarro [place] MD Андрей [address] [place] [address] [place] [address] Social History Tobacco Use Types Packs/Day Years Used Date Smoking Tobacco: Never Assessed Sex Assigned at Date Recorded Not on file documented as of this encounter Plan of Treatment Not on filedocumented as of this encounter Procedures Procedure Name Priority Date/Time Associated Diagnosis Comme nts GLUCOSE CHALLENGE Routine 08/04/2011 12:00 PM Res ults for this GEST SCREEN 1 HOUR CDT procedure are in (CHALLENGE) the results (LABDAQ) section. documented in this encounter Results (ABNORMAL) Glucose Challenge 1 Hr (LabDAQ) (08/04/2011 12:00 PM CDT) [facility] gist Method Time Signature Glu Gest 131.0 (H) 0.0 - UMP HISTORICAL Screen 1hr 50g 129.0 RESULTS Specimen Anatomical Collection Method Collection Time Receive d Time (Source) Location / / Volume Laterality 08/04/2011 12:00 08/04/2011 PM CDT 12:00 PM CDT Radha Navarro MD LAB - LABDAQ Performing Organization Address City/State/ZIP Code Phon e Number [facility] HISTORICAL RESULTS documented in this encounter Visit Diagnoses Not on filedocumented in this encounter
--- OUTSIDE RECORDS SUMMARY | 2021-12-17 15:12 | XMS_ITS | Encounter Summary ---
:1980 Author Organization [place] Address [facility] [place] [address] Care Team Providers Name Role Phone Unavailable Primary Care Provider Unavailable Encounter Details Date Type Department Care Team Description 04/20/2011 Results Only [facility] PHYS Radha De La Fuente [address] [facility] MD [place]ндрей [place], [place] [phone] Social History Tobacco Use Types Packs/Day Years Used Date Smoking Tobacco: Never Assessed Sex Assigned at Date Recorded Not on file documented as of this encounter Plan of Treatment Not on filedocumented as of this encounter Procedures Procedure Name Priority Date/Time Associated Diagnosis Comme nts HEPATITIS B SURFACE Routine 04/20/2011 4:32 PM Re sults for this ANTIGEN HARNESS PLACER procedure are i n the results section. documented in this encounter Results Hepatitis B surface antigen (04/20/2011 4:32 PM HARNESS PLACER) Analysis Performed At Patho logist Time Signature Hep B Surface Negative NEG [facility] LABS Specimen Anatomical Collection Method Collection Time Receive d Time (Source) Location / / Volume Laterality 04/20/2011 4:32 PM 201 2 4:37 HARNESS PLACER PM HARNESS PLACER Radha Navarro MD LAB - BLOOD ORDERABLES Performing Organization Address City/State/ZIP Code Phon e Number [facility] [address] [place] [address] [facility] [place] [facility] LABS documented in this encounter Visit Diagnoses Not on filedocumented in this encounter
--- OUTSIDE RECORDS SUMMARY | 2021-12-17 15:12 | XMS_ITS | Encounter Summary ---
:1980 Author Organization [place] Address [facility] [place] [address] Care Team Providers Name Role Phone Unavailable Primary Care Provider Unavailable Encounter Details Date Type Department Care Team Description 04/20/2011 Results Only [facility] PHYS Radha De La Fuente [address] [facility] MD [place]ндрей [place], [place] [phone] Social History Tobacco Use Types Packs/Day Years Used Date Smoking Tobacco: Never Assessed Sex Assigned at Date Recorded Not on file documented as of this encounter Plan of Treatment Not on filedocumented as of this encounter Procedures Procedure Name Priority Date/Time Associated Diagnosis Comme nts VARICELLA ZOSTER Routine 04/20/2011 4:32 PM Resul ts for this ANTIBODY IGG DEMAND PLANNER procedure are i n the results section. documented in this encounter Results Varicella zoster antibody IgG (04/20/2011 4:32 PM DEMAND PLANNER) [facility] Method Time Signature Varicella 203.00 [facility] Zoster IgG [facility] Immune Status CAMP[facility] LABS Ratio Vari Zoster Positive, [facility] IgG Interp suggests [place] prev. CAMPUS LABS exposure and probable immunity Specimen Anatomical Collection Method Collection Time Receive d Time (Source) Location / / Volume Laterality 04/20/2011 4:32 PM 2 4:37 DEMAND PLANNER PM DEMAND PLANNER Radha Navarro MD LAB - BLOOD ORDERABLES Performing Organization Address City/State/ZIP Code Phon e Number [facility] [address] [place] [address] [facility] LABS documented in this encounter Visit Diagnoses Not on filedocumented in this encounter
--- OUTSIDE RECORDS SUMMARY | 2021-12-17 15:12 | XMS_ITS | Encounter Summary ---
:1980 Author Organization [place] Address [facility] [place] [address] Care Team Providers Name Role Phone Unavailable Primary Care Provider Unavailable Encounter Details Date Type Department Care Team Description 10/30/2009 Historic Results [facility] [place] [address] Social History Tobacco Use Types Packs/Day Years Used Date Smoking Tobacco: Never Assessed Sex Assigned at Date Recorded Not on file documented as of this encounter Plan of Treatment Not on filedocumented as of this encounter Procedures Procedure Name Priority Date/Time Associated Comments Diagnosis HCG QUALITATIVE URINE STAT 10/30/2009 5:20 PM Results for this CDT procedure are i n the results section. ROUTINE UA WITH STAT 10/30/2009 5:20 PM Result s for this MICROSCOPIC CDT procedure are i n the results section. URINE CULTURE STAT 10/30/2009 5:20 PM Results for this CDT procedure are i n the results section. documented in this encounter Results (ABNORMAL) Routine UA with microscopic (10/30/2009 5:20 PM CDT) Component Value Ref Test Analysis Performed At [facility] Range Method Time Signature Source Unspecified MISYS Urine Color Urine Yellow MISYS Appearance Urine Clear MISYS Glucose Urine Negative NEG MISYS mg/dL Bilirubin Urine Negative NEG MISYS Ketones Urine Negative NEG MISYS mg/dL Specific [place] 1.017 1.003 - MISYS Urine 1.035 Blood Urine Negative NEG MISYS pH Urine 7.5 (H) 5.0 - MISYS 7.0 pH Protein Albumin 10 (A) NEG MISYS Urine mg/dL Urobilinogen Normal 0.0 - MISYS mg/dL 2.0 mg/dL Nitrite Urine Negative NEG MISYS Leukocyte Negative NEG MISYS Esterase Urine WBC Urine 3 (H) 0 - 2 MISYS /HPF RBC Urine 4 (H) 0 - 2 MISYS /HPF Squamous 2 (H) 0 - 1 MISYS Epithelial /HPF /HPF Urine Bacteria Urine Few (A) NEG /HPF MISYS Mucous Urine Present (A) NEG /LPF MISYS Specimen Anatomical Collection Method Collection Time Receive d Time (Source) Location / / Volume Laterality 10/30/2009 5:20 PM 0 5:20 CDT PM CDT Lamont Ku MD LAB - URINE ORDERABLES Performing Organization Address City/[facility] Phon e Number MISYS HCG qualitative urine (10/30/2009 5:20 PM CDT) P athologist Signature HCG Qual Urine Negative NEG MISYS Comment: This test provides a presumptive diagno sis of or non-. A confirmed diagnosis should on ly be made by a physician after all clinical and laboratory findings have b een evaluated. Specimen Anatomical Collection Method Collection Time Receive d Time (Source) Location / / Volume Laterality 10/30/2009 5:20 PM 0 5:20 CDT PM CDT Lamont Ku MD LAB - URINE ORDERABLES Performing Organization Address [facility] Phon e Number MISYS Urine culture (10/30/2009 5:20 PM CDT) [facility] gist Method Time Signature Specimen Unspecified MISYS Description Urine Culture Micro 10 to 50,000 MISYS colonies/mL Mixed gram positive teresa Comment: Multiple species present, proba ble perineal contamination. Micro Report Status FINAL 11/01/2009 MIS YS Specimen Anatomical Collection Method Collection Time Receive d Time (Source) Location / / Volume Laterality 10/30/2009 5:20 PM 0 5:20 CDT PM CDT Lamont Ku MD LAB - MICRO GENERAL ORDERABL ES Performing Organization Address City/[facility] Phon e Number MISYS documented in this encounter Visit Diagnoses Not on filedocumented in this encounter
--- OUTSIDE RECORDS SUMMARY | 2021-12-17 15:12 | XMS_ITS | Encounter Summary ---
:1980 Author Organization [place] Address [address] [facility] [place] [address] Care Team Providers Name Role Phone Unavailable Primary Care Provider Unavailable Encounter Details Date Type Department Care Team Description 04/20/2011 Historic Results [facility] Leanne Navarro [place] MD Андрей [address] [place] [address] [place] [address] Social History Tobacco Use Types Packs/Day Years Used Date Smoking Tobacco: Never Assessed Sex Assigned at Date Recorded Not on file documented as of this encounter Plan of Treatment Not on filedocumented as of this encounter Procedures Procedure Name Priority Date/Time Associated Comments Diagnosis WET PREP (LABDAQ) Routine 04/20/2011 4:36 PM Resu lts for this BULK SUGAR HANDLER procedure are i n the results section. URINALYSIS(LABDAQ) Routine 04/20/2011 4:36 PM Res ults for this BULK SUGAR HANDLER procedure are i n the results section. HEMOGLOBIN (HGB) Routine 04/20/2011 4:36 PM Resul ts for this (LABDAQ) BULK SUGAR HANDLER procedure are i n the results section. HCG QUALITATIVE URINE Routine 04/20/2011 3:20 PM Results for this (LABDAQ) BULK SUGAR HANDLER procedure are i n the results section. documented in this encounter Results (ABNORMAL) Hemoglobin (HGB) (LabDAQ) (04/20/2011 4:36 PM BULK SUGAR HANDLER) P athologist Signature Hemoglobin 10.9 (L) 11.7 - UMP HISTORICAL 15.7 g/dl RESULTS Specimen Anatomical Collection Method Collection Time Receive d Time (Source) Location / / Volume Laterality 04/20/2011 4:36 PM 2 4:36 BULK SUGAR HANDLER PM BULK SUGAR HANDLER Radha Navarro MD LAB - LABDAQ Performing Organization Address [facility]/ZIP Code Phon e Number UMP HISTORICAL RESULTS (ABNORMAL) Urinalysis(LabDAQ) (04/20/2011 4:36 PM BULK SUGAR HANDLER) [facility] Method Time Signature Specific [place] 1.025 1.005 - UMP HISTORICA L Urine 1.030 RESULTS pH Urine 6.0 4.5 - 8.0 UMP HISTORICAL RESULTS Leukocyte 500/ul 2+ UMP HISTORICAL Esterase UR (A) RESULTS Nitrite Urine neg UMP HISTORICAL RESULTS Protein UR 15 UMP HISTORICAL mg/dltrac RESULTS e (A) Glucose Urine norm UMP HISTORICAL RESULTS Ketones Urine 50 mg/dl UMP HISTORICAL 2+ (A) RESULTS Urobilinogen norm UMP HISTORICAL mg/dL RESULTS Bilirubin UR neg UMP HISTORICAL RESULTS Blood UR 150/ul 3+ UMP HISTORICAL (A) RESULTS Specimen Anatomical Collection Method Collection Time Receive d Time (Source) Location / / Volume Laterality 04/20/2011 4:36 PM 2 4:36 BULK SUGAR HANDLER PM BULK SUGAR HANDLER Radha Navarro MD LAB - LABDAQ Performing Organization Address [facility]/ZIP Code Phon e Number UMP HISTORICAL RESULTS Wet Prep (LabDAQ) (04/20/2011 4:36 PM BULK SUGAR HANDLER) [facility] Method Time [facility] Yeast Wet Prep Present UMP HISTORICAL RESULTS Motile Negative UMP HISTORICAL Trichomonas Wet RESULTS Prep Clue Cells Wet None UMP HISTORICAL Prep RESULTS WBC WET PREP 5-10 UMP HISTORICAL RESULTS Bacteria Wet Few UMP HISTORICAL Prep RESULTS pH Wet Prep <4.5 UMP HISTORICAL RESULTS Odor Wet Prep None UMP HISTORICAL RESULTS Specimen Anatomical Collection Method Collection Time Receive d Time (Source) Location / / Volume Laterality 04/20/2011 4:36 PM 2 4:36 BULK SUGAR HANDLER PM BULK SUGAR HANDLER Radha Navarro MD LAB - LABDAQ Performing Organization Address City/[facility]/ZIP Code Phon e Number UMP HISTORICAL RESULTS HCG Qualitative Urine (LabDAQ) (04/20/2011 3:20 PM BULK SUGAR HANDLER) [facility] Signature HCG Qual Urine POSITIVE UMP HISTORICAL RESULTS Specimen Anatomical Collection Method Collection Time Receive d Time (Source) Location / / Volume Laterality 04/20/2011 3:20 PM 2 3:20 BULK SUGAR HANDLER PM BULK SUGAR HANDLER Radha Navarro MD LAB - LABDAQ Performing Organization Address City/State/ZIP Code Phon e Number UMP HISTORICAL RESULTS documented in this encounter Visit Diagnoses Not on filedocumented in this encounter
--- OUTSIDE RECORDS SUMMARY | 2021-12-17 15:12 | XMS_ITS | Encounter Summary ---
:1980 Author Organization [place] Address [facility] [place] [address] Care Team Providers Name Role Phone Unavailable Primary Care Provider Unavailable Encounter Details Date Type Department Care Team Description 10/30/[address] [facility] Lamont Brito, [facility] Results XXX [place] [address] Social History Tobacco Use Types Packs/Day Years Used Date Smoking Tobacco: Never Assessed Sex Assigned at Date Recorded Not on file documented as of this encounter Progress Notes Lamont Ramos - 11/04/2009 5:30 AM CDT FINAL Please see T-note. Azul Forrester is a 29-year-old female who presents with 2-day history of dysuria. She states that she started taking an aisn-bdo-wqemwlx medication, Urispas with improvement of her symptoms. She now has been having 2-3 episodes of vomiting a day. She states that this actually is feeling much improved currently. On physical examination, she has normal vital signs. She is afebrile. She has a benign and nontender abdominal examination. She was evaluated with urinalysis, which does show signs of infection. She will be treated with Keflex, as she recently had a UTI that had some resistance patterns, she did complete a course of ciprofloxacin, which this previous bacteria did appear to be sensitive to. She will be treated with Keflex 500 mg 4 times a day, as she was pansensitive to cephalosporins, even first generation cephalosporinson this culture. She was counseled about needs for return. She stated that her nausea and vomiting are actually improved and she was able to tolerate fluids prior to discharge. Electronically signed on 11/04/2009 05:30 by LAMONT RAMOS MD MT: PP Name: AZUL FORRESTER Account: [id number] : 1980 Visit Date: 10/30/2009 Document: [id number] cc: MAGGI FULLER MD documented in this encounter Plan of Treatment Not on filedocumented as of this encounter Visit Diagnoses Not on filedocumented in this encounter
--- OUTSIDE RECORDS SUMMARY | 2021-12-17 15:12 | XMS_ITS | Encounter Summary ---
:1980 Author Organization [place] Address [facility] [place] [address] Care Team Providers Name Role Phone Unavailable Primary Care Provider Unavailable Encounter Details Date Type Department Care Team Description 04/20/2011 Results Only [facility] PHYS STANDARD Radha Navarro [address] [facility] MD Андрей [place], [place] [phone] Social History Tobacco Use Types Packs/Day Years Used Date Smoking Tobacco: Never Assessed Sex Assigned at Date Recorded Not on file documented as of this encounter Plan of Treatment Not on filedocumented as of this encounter Procedures Procedure Name Priority Date/Time Associated Diagnosis Comme nts HEPATITIS B SURFACE Routine 04/20/2011 4:32 PM Re sults for this ANTIBODY INDIVIDUAL SMALL GROUP INSTRUCTOR procedure are i n the results section. documented in this encounter Results Hepatitis B surface antibody (04/20/2011 4:32 PM INDIVIDUAL SMALL GROUP INSTRUCTOR) P athologist Signature Hep B Surface 751.0 [facility] LABS Comment: Positive, Patient is considered to be im mune to infection with hepatitis B when the value is greater than or equal to 1 2.0 mlU/mL. Specimen Anatomical Collection Method Collection Time Receive d Time (Source) Location / / Volume Laterality 04/20/2011 4:32 PM 2 4:37 INDIVIDUAL SMALL GROUP INSTRUCTOR PM INDIVIDUAL SMALL GROUP INSTRUCTOR Radha Navarro MD LAB - BLOOD ORDERABLES Performing Organization Address City/State/ZIP Code Phon e Number [facility] [address] [place] [address] [facility] LABS documented in this encounter Visit Diagnoses Not on filedocumented in this encounter
--- OUTSIDE RECORDS SUMMARY | 2021-12-17 15:12 | XMS_ITS | Encounter Summary ---
:1980 Author Organization [place] Address [address] [facility] [place] [address] Care Team Providers Name Role Phone Andreas Patel MD Primary Care Provider Caitlin Ballesteros MD Primary Care Provider Lisa Dewitt DO Primary Care Provider Bebeto Roth MD Unavailable Astrid Rios PA-C [facility] Primary Care Provider + Keri Elias MD Primary Care Provider Unavailable Francisco Metz MD Primary Care Provider [phone] Francisco Metz MD Unavailable [phone] Kenton Katz MD Unavailable Unavailable Karen Veliz DO Primary Care Provider Kenton Katz MD Unavailable Unavailable Karen Veliz DO Unavailable Encounter Details Date Type Department Care Team Description 04/21/2011 Orders Only M [facility] Radha Pierce ositive test Imaging (Primary Dx) [address] [place] [address] Social History Tobacco Use Types Packs/Day Years Used Date Smoking Tobacco: Never Assessed Sex Assigned at Date Recorded Not on file documented as of this encounter Plan of Treatment Not on filedocumented as of this encounter Visit Diagnoses Diagnosis Positive test - Primary examination or test, positive result documented in this encounter Care Teams Superintendent Distribution Relationship Specialty Start Date End Date Andreas Patel MD PCP - General 10/05/11 10/07/11 [facility] [address] [place], [place] [phone] Caitlin Ballesteros MD PCP - General 10/08/11 08/11/13 Lisa Dewitt DO PCP - General 08/12/13 07/15/14 [facility] [address] [place], [place] [phone] Clinic - [facility] PCP - General 07/16/14 03/11/15 [facility] [address] [place], [place] [phone] Keri Elias PCP - General Family Practice 03/12/15 9 MD Isaías Glez Mitchell PCP - General Family Practice 11/14/18 04/02/20 MD Stevie Karen Veliz PCP - General Family Medicine 04/03/20 [address] [place], [place] [phone] Bebeto Roth MD Orthopedics 07/09/14 [facility] [place] [id number] Astrid Rios PA-C Physician Information Clerk Cashier Physician Information Clerk Cashier - 07/09/14 Surgical Francisco Metz Assigned PCP 07/04/19 02/01/20 MD Stevie [address] [place], [place] [address] Kenton Katz Assigned PCP 02/02/20 08/27/20 MD Feliberto NO INFO AVAILABLE Kenton Katz Assigned Endocrinology 08/28/20 07/23/21 MD Feliberto Provider NO INFO AVAILABLE Karen Veliz, Assigned PCP 08/28/20 DO [address] [place] [address] documented as of this encounter
--- OUTSIDE RECORDS SUMMARY | 2021-12-17 15:12 | XMS_ITS | Encounter Summary ---
:1980 Author Organization [place] Address [facility] [place] [address] Care Team Providers Name Role Phone Unavailable Primary Care Provider Unavailable Encounter Details Date Type Department Care Team Description 04/20/2011 Results Only [facility] PHYS Radha De La Fuente [address] [facility] MD Андрей [place], [place] [phone] Social History Tobacco Use Types Packs/Day Years Used Date Smoking Tobacco: Never Assessed Sex Assigned at Date Recorded Not on file documented as of this encounter Plan of Treatment Not on filedocumented as of this encounter Procedures Procedure Name Priority Date/Time Associated Comments Diagnosis NEISSERIA GONORRHOEAE Routine 04/20/2011 4:32 PM Results for this PCR PHARMACEUTICAL PROCESS ENGINEER procedure are i n the results section. documented in this encounter Results Neisseria gonorrhoeae PCR (04/20/2011 4:32 PM PHARMACEUTICAL PROCESS ENGINEER) Component Value Ref Test Analysis Performed At [facility] Range Method Time Signature Specimen Cervical [facility] Descrip N Gonorrhea Negative for N. gonorrhoeae rRNA by primer inspector mediated amplification. [facility] PCR A negative result by transc ription mediated amplification does not preclude the MICROBIOLOGY presence of N. gonorrhoeae infection because re sults are dependent on proper and adequate collection, absence of inhibitors, and suffici ent rRNA to be detected. Specimen Anatomical Collection Method Collection Time Receive d Time (Source) Location / / Volume Laterality 04/20/2011 4:32 PM 2 4:37 PHARMACEUTICAL PROCESS ENGINEER PM PHARMACEUTICAL PROCESS ENGINEER Radha Navarro MD LAB - MICRO GENERAL ORDERABL ES Performing Organization Address City/State/ZIP Code Phon e Number [facility] [address] [place] [address] [facility] MICROBIOLOGY documented in this encounter Visit Diagnoses Not on filedocumented in this encounter
--- OUTSIDE RECORDS SUMMARY | 2021-12-17 15:12 | XMS_ITS | Encounter Summary ---
:1980 Author Organization [place] Address [facility] [place] [address] Care Team Providers Name Role Phone Unavailable Primary Care Provider Unavailable Encounter Details Date Type Department Care Team Description 11/25/2009 Office Visit-[facility] Orthopaedic Clinic Bebeto Rothide Renzo Hartman MD [address], [id number] [place] [phone] Social History Tobacco Use Types Packs/Day Years Used Date Smoking Tobacco: Never Assessed Sex Assigned at Date Recorded Not on file documented as of this encounter Progress Notes Bebeto Roth - 11/25/2009 11:30 AM CDT Tool Profiling Machine Set Up Operator: Bebeto Roth Status: Final - Signature Encounter: 25 Nov 2009 Type: U Ortho Visit Department of Orthopaedic Surgery Administration: [address], [address] [place] [phone] or [phone] Appointments [email or web address] Mail Address: [address], [address] [place] [address] Shmuel Ruiz MD General Orthopaedics Marcella Wilson MD Hand, Wrist, Elbow Quyen Simms MD Sports Medicine - Knee Adult Reconstruction - Knee Clem Bower MD Shoulder Georgi Cross MD Oncology and Adult Reconstruction Aba Burgos MD Oncology Apoorva Leung MD Shoulder and Elbow Martin Sheffield MD Professor Emeritus Breanna Haji MD Pediatric Orthopaedics and Scoliosis Deep Serna D.P.M. Foot and Ankle Neo Mccord MD Joint Preservation, Resurfacing, and Replacement Young Adult Hip & Knee Shoaib Thomas MD Sports Medicine, Shoulder Gurwinder Rockwell MD Foot and Ankle Bebeto Roth Jr., Spine John Garcia MD Hand/Trauma Georgi Murdock MD Spine Karl Guzman D.P.M. Podiatry Clem Samano MD Spine Edgar Ojeda MD Trauma Wilton German MD Oncology and Adult Reconstruction Melvi Zapata MD Hand/Pediatric ORTHOPAEDIC SURGERY CLINIC VISIT RE: JOCELIN PINEDO : 1980 DOS: 11/25/2009 Jocelin is now approximately six weeks out from a posterior spinal fusion for an adult scoliosis pattern. This a single overhang thoracolumbar curve. She had marked kyphosis before. Since her discharge from the hospital she has had some GI issues, which appear to be on the way to resolving, although shehas had some nausea from unclear etiology. She returns today and has completed her paperwork. Her intake Oswestry Disability Index Score is a 7%. She indicates she is only using a pain pill occasionally at night but not every night. 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 She has completed an SRS 30 questionnaire. Her SRS 30 modified patient questionnaire scores a 77%. PHYSICAL EXAMINATION: Physical examination shows a well-developed, well- appearing female in no acutedistress. Evaluation of her stance shows her head is centered over her pelvis. Her left shoulder is up approximately 1 cm. The pelvis is level. Wilson forward bending test: Her angle of trunk rotation is now approximately 10 degrees. Her gait is normal. Her incision is healing very nicely. She does have some minimal tenderness as would be expected at six weeks postop. RADIOGRAPHIC EXAMINATION: Radiographic exam performed today includes AP and lateral scoliosis films.These are compared to her preoperative films from June 24, 2009, and her in-hospital discharge films from 10/16/2009. RADIOGRAPHIC FINDINGS: Paired pedicle screws and rods are seen extending from T10 to L3. There has been significant interval correction of the deformity with now approximately a 17-degree residual deformity, whereas before preoperatively it was 75. There has been marked improvement of her thoracolumbar junctional kyphosis, which previously was 42 degrees and now it is neutral. There has been no change in her instrumentation position since her 10/16/2009 film. There has been interval improvement of theabdominal ileus picture. RADIOGRAPHIC IMPRESSION: Scoliosis status post fusion, stable. CLINICAL ASSESSMENT: Scoliosis status post fusion, progressing on track. PLAN: She has asked for and been given work slips to return to work. At this point, I do not want her to start any dedicated physical therapy but rather just walking as tolerated. She should return fora followup evaluation in six weeks, at which point in time we will get repeat scoliosis films, and my anticipation would be that she would be ready to start specific physical therapy. Bebeto Roth M.D. Professor Chief of Spine Service DP:pedro cc: Jocelin Solis [address] [address] Radha Navarro MD [facility] [address] [place] [address] Electronically signed by:Bebeto Roth M.D. Dec 03 2009 8:42AM FARM EQUIPMENT ENGINEER documented in this encounter Plan of Treatment Not on filedocumented as of this encounter Visit Diagnoses Not on filedocumented in this encounter
--- OUTSIDE RECORDS SUMMARY | 2021-12-17 15:12 | XMS_ITS | Encounter Summary ---
:1980 Author Organization [place] Address [facility] [place] [address] Care Team Providers Name Role Phone Unavailable Primary Care Provider Unavailable Encounter Details Date Type Department Care Team Description 04/20/2011 Results Only [facility] PH[facility] Radha De La Fuente [address] [facility] MD Андрей [place], [place] [phone] Social History Tobacco Use Types Packs/Day Years Used Date Smoking Tobacco: Never Assessed Sex Assigned at Date Recorded Not on file documented as of this encounter Plan of Treatment Not on filedocumented as of this encounter Procedures Procedure Name Priority Date/Time Associated Comments Diagnosis CHLAMYDIA TRACHOMATIS Routine 04/20/2011 4:32 PM Results for this PCR SAP ANALYST procedure are i n the results section. documented in this encounter Results Chlamydia trachomatis PCR (04/20/2011 4:32 PM SAP ANALYST) Component Value Ref Test Analysis Performed At [facility] Range Method Time Signature Specimen Cervical [facility] Chlamydia Negative for C. trachomatis rRNA by rand butter mediated amplification. [facility] Trachomatis A negative result by transc ription mediated amplification does not preclude the MICROBIOLOGY PCR presence of C. trachomatis infection because results are dependent on proper and adequate collection, absence of inhibitors, and suffici ent rRNA to be detected. Specimen Anatomical Collection Method Collection Time Receive d Time (Source) Location / / Volume Laterality 04/20/2011 4:32 PM 2 4:37 SAP ANALYST PM SAP ANALYST Radha Navarro MD LAB - MICRO GENERAL ORDERABL ES Performing Organization Address City/State/ZIP Code Phon e Number [facility] [address] [place] [address] [facility] MICROBIOLOGY documented in this encounter Visit Diagnoses Not on filedocumented in this encounter
--- OUTSIDE RECORDS SUMMARY | 2021-12-17 15:12 | XMS_ITS | Encounter Summary ---
:1980 Author Organization [place] Address [facility] [place] [address] Care Team Providers Name Role Phone Unavailable Primary Care Provider Unavailable Encounter Details Date Type Department Care Team Description 04/20/2011 Results Only [facility] PHYS Radha De La Fuente [address] [facility] MD [place] [place], [place] [phone] Social History Tobacco Use Types Packs/Day Years Used Date Smoking Tobacco: Never Assessed Sex Assigned at Date Recorded Not on file documented as of this encounter Plan of Treatment Not on filedocumented as of this encounter Procedures Procedure Name Priority Date/Time Associated Diagnosis Comme nts URINE CULTURE Routine 04/20/2011 4:32 PM Results for this SHOWROOM CONSULTANT procedure are i n the results section . documented in this encounter Results Urine culture (04/20/2011 4:32 PM SHOWROOM CONSULTANT) Component Value Ref Test Analysis Performed At [facility] Range Method Time Signature Specimen Midstream Urine [facility] Description MICROBIOLOGY Special Specimen received [facility] Requests in preservative MICROBIOLOGY Culture Micro 10 to 50,000 colonies/mL Mixed gram positive teresa [facility] Multiple species present, probable perineal contamination. MICROBIOLOGY Susceptibility testing not routinely done Micro Report FINAL 04/21/2011 [facility] Status MICROBIOLOGY Specimen Anatomical Collection Method Collection Time Receive d Time (Source) Location / / Volume Laterality 04/20/2011 4:32 PM 2 4:37 SHOWROOM CONSULTANT PM SHOWROOM CONSULTANT Radha Navarro MD LAB - MICRO GENERAL ORDERABL ES Performing Organization Address City/State/ZIP Code Phon e Number [facility] [address] [place] [address] [place] MICROBIOLOGY documented in this encounter Visit Diagnoses Not on filedocumented in this encounter
--- OUTSIDE RECORDS SUMMARY | 2021-12-17 15:12 | XMS_ITS | Encounter Summary ---
:1980 Author Organization [place] Address [address] [facility] [place] [address] Care Team Providers Name Role Phone Unavailable Primary Care Provider Unavailable Encounter Details Date Type Department Care Team Description 03/03/2010 Office Visit-[facility] INTERFACE [facility] DEPT Provider, [facility] Nurs e Social History Tobacco Use Types Packs/Day Years Used Date Smoking Tobacco: Never Assessed Sex Assigned at Date Recorded Not on file documented as of this encounter Progress Notes Provider, [facility] Nurse - 03/03/2010 2:30 PM CST Traffic Manager: Melvi Juárez Status: Final Encounter: 03 Mar 2010 Type: Rooming Note Reason For Visit Surgery follow up Do you have any other appointments, tests or procedures within the [facility] system for this same day? 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 Posterior spinal fusion T10 through L3. 2. Segmental spinal instrumentation T10 through L3. 3. Image-guided surgery. 4. Injection of intrathecal substance. Primary Provider: Kenia Olivia's Referring Physician: same. Santos Cavanaugh Current history of pain associated with this visit is as follows: Location: upper and mid back Quality: aching to sharp Severity: 1 (Pain scale 1-10, with 10 being the worst) Duration: comes and goes Timing: depend on day and time and amount of activities Context: same Modifying factors: rest Associated signs/symptoms: none Does this pain wake you up at night? no. Active Problems Acne Vulgaris (706.1) Anxiety (300.00) Care Coordinated By; Tier 0 Congenital Scoliosis (754.2) Normal Routine History And Physical Adult (V70.0) Scoliosis (737.30). Personal Hx Behavioral history: No tobacco use. Home environment: No secondhand tobacco smoke in home. Vital Signs Recorded by Melvi Juárez on 03 Mar 2010 02:47 PM Height: 63 in, Weight: 149.1 lb, BMI: 26.4 kg/m2. Allergies No Known Drug Allergy. Current Meds Fluticasone Propionate 50 MCG/ACT Suspension;USE 2 SPRAYS IN EACH NOSTRIL ONCE DAILY; Rx Loratadine 10 MG Tablet;TAKE 1 TABLET EVERY MORNING NEEDED.; Rx Tretinoin 0.025 % Cream;APPLY SPARINGLY TO AFFECTED AREA(S) ONCE DAILY AT BEDTIME.; Rx HydrOXYzine Pamoate 25 MG Capsule;Take 1-2 tabs every 4-6 hours po prn muscle spasms; Rx Minocycline HCl 100 MG Capsule;TAKE 1 CAPSULE DAILY WITH FOOD.; Rx AAA-MED RECONCILE;per pt.; RPT. Med list offered and patient declined. Signature Signed By: Melvi Juárez LP; 03/03/2010 2:52 PM OPERATIONS GENERAL AGENT. documented in this encounter Plan of Treatment Not on filedocumented as of this encounter Visit Diagnoses Not on filedocumented in this encounter
--- OUTSIDE RECORDS SUMMARY | 2021-12-17 15:12 | XMS_ITS | Encounter Summary ---
:1980 Author Organization [place] Address [facility]0 [facility] [place] [address] Care Team Providers Name Role Phone Unavailable Primary Care Provider Unavailable Encounter Details Date Type Department Care Team Description 04/20/2011 Results Only [facility] PHYS Radha De La Fuente [address] [facility] MD Андрей [place], [place] [phone] Social History Tobacco Use Types Packs/Day Years Used Date Smoking Tobacco: Never Assessed Sex Assigned at Date Recorded Not on file documented as of this encounter Plan of Treatment Not on filedocumented as of this encounter Procedures Procedure Name Priority Date/Time Associated Diagnosis Comme nts ANTI TREPONEMA Routine 04/20/2011 4:32 PM Results for this LEATHER CLEANER procedure are i n the results section . documented in this encounter Results Anti treponema EIA (04/20/2011 4:32 PM LEATHER CLEANER) Analysis Performed At Patho logist Time Signature Treponema Negative NEG [facility] [place] [facility] Specimen Anatomical Collection Method Collection Time Receive d Time (Source) Location / / Volume Laterality 04/20/2011 4:32 PM 201 2 4:37 LEATHER CLEANER PM LEATHER CLEANER Radha Navarro MD LAB - BLOOD ORDERABLES Performing Organization Address City/State/ZIP Code Phon e Number [facility] [address] [place] [address] [facility] [place] [facility] documented in this encounter Visit Diagnoses Not on filedocumented in this encounter
--- OUTSIDE RECORDS SUMMARY | 2021-12-17 15:12 | XMS_ITS | Encounter Summary ---
:1980 Author Organization [place] Address [address] [facility] [place] [address] Care Team Providers Name Role Phone Unavailable Primary Care Provider Unavailable Encounter Details Date Type Department Care Team Description 10/19/2009 Historic Notes INTERFACED REPORT Kev Rios MD [facility] [address] [place], [place] [address] (Wo rk) Social History Tobacco Use Types Packs/Day Years Used Date Smoking Tobacco: Never Assessed Sex Assigned at Date Recorded Not on file documented as of this encounter Progress Notes Kev Rios MD - 04/30/2010 8:35 PM CDT Ortho Pain controlled. Out of bed and mobilizing well. Had loose BM x 1. No further nausea. Tolerating regular diet. Voided spontaneously. AF, tachy 100s, bp stable. on RA. UO: adequate. A&O, NAD nonlabored breathing back: incision c/d/i. BLE: SILT L2-S1. 5/5 flex/ext hips/knees/toes/ankles. CR < 2 seconds A/P: POD #7 T10-L3 PSF - prn pain meds - regular diet - WBAT, up with PT - bowel meds - appreciate Smileys input - anxiety, improved with meds - Cipro for UTI, today is day 4/5. Appreciate urology input. Pt voiding on own. - culture sent for c dif - d/c home today Kev Rios MD [phone] [Signature] Author: KEV RIOS) [Signed 07:11] documented in this encounter Plan of Treatment Not on filedocumented as of this encounter Visit Diagnoses Not on filedocumented in this encounter
--- OUTSIDE RECORDS SUMMARY | 2021-12-17 15:12 | XMS_ITS | Encounter Summary ---
:1980 Author Organization [place] Address [facility] [place] [address] Care Team Providers Name Role Phone Unavailable Primary Care Provider Unavailable Encounter Details Date Type Department Care Team Description 04/20/2011 Results Only [facility] PHYS STANDARD Radha Navarro [address] [facility] MD Андрей [place], [place] [phone] Social History Tobacco Use Types Packs/Day Years Used Date Smoking Tobacco: Never Assessed Sex Assigned at Date Recorded Not on file documented as of this encounter Plan of Treatment Not on filedocumented as of this encounter Procedures Procedure Name Priority Date/Time Associated Diagnosis Comme nts ABO/RH TYPE AND Routine 04/20/2011 4:32 PM Result s for this SCREEN PIPE WASHER procedure are i n the results section. documented in this encounter Results ABO/Rh type and screen (04/20/2011 4:32 PM PIPE WASHER) [facility] gist Method Time Signature ABO O [facility] RH(D) Pos [facility] Antibody Neg [facility] Screen [facility] Specimen 04/23/2011 [facility] Expires [facility] Specimen Anatomical Collection Method Collection Time Receive d Time (Source) Location / / Volume Laterality 04/20/2011 4:32 PM 2 4:37 PIPE WASHER PM PIPE WASHER Radha Navarro MD LAB - BLOOD BANK TEST ORDER Performing Organization Address City/State/ZIP Code Phon e Number [facility] [address] [place] [address] [facility] documented in this encounter Visit Diagnoses Not on filedocumented in this encounter
--- OUTSIDE RECORDS SUMMARY | 2021-12-17 15:12 | XMS_ITS | Encounter Summary ---
:1980 Author Organization [place] Address [address] [place] [address]. [place] [address] Care Team Providers Name Role Phone Unavailable Primary Care Provider Unavailable Encounter Details Date Type Department Care Team Description 03/03/2010 Office Visit-[facility] Orthopaedic Clinic Bebeto Roth [place] Renzo Hartman MD [address], [id number] [place] [address] [phone] Social History Tobacco Use Types Packs/Day Years Used Date Smoking Tobacco: Never Assessed Sex Assigned at Date Recorded Not on file documented as of this encounter Progress Notes Bebeto Roth - 03/03/2010 2:30 PM CST Stabilizer Operator: Bebeto Roth Status: Final - Signature Encounter: 03 Mar 2010 Type: U Ortho Visit Department of Orthopaedic Surgery Administration: [address], [address] [place] [phone] or [phone] Appointments [email or web address] Mail Address: [address], [address] [place] [phone] Shmuel Ruiz MD General Orthopaedics Marcella Wilson MD Hand, Wrist, Elbow Quyen Simms MD Sports Medicine - Knee Adult Reconstruction - Knee Clem Bower MD Shoulder Georgi Cross MD Oncology and Adult Reconstruction Aba Burgos MD Oncology Apoorva Leung MD Shoulder and Elbow Martin Sheffield MD Professor Emerhai Haji MD Pediatric Orthopaedics and Scoliosis Deep Serna D.P.M. Foot and Ankle Neo Mccord MD Joint Preservation, Resurfacing, and Replacement Young Adult Hip & Knee Shoaib Thomas MD Sports Medicine, Shoulder Gurwinder Rockwell MD Foot and Ankle Bebeto Roth Jr., MD Spine John Garcia MD Hand/Trauma Georgi Murdock MD Spine Karl Guzman D.P.M. Podiatry Clem Samano MD Spine Edgar Ojeda MD Trauma Wilton German MD Oncology and Adult Reconstruction Melvi Zapata MD Hand/Pediatric ORTHOPAEDIC SURGERY CLINIC VISIT RE: JOCELIN PINEDO : 1980 DOS: 03/03/2010 ADDENDUM: Total contact time for this visit exceeded 25 minutes, of which greater than 50% was spentin counseling her about her care. Bebeto Roth M.D. Professor Chief of Spine Service DP:pedro Electronically signed by:Bebeto Roth M.D. Mar 11 2010 9:50AM BIOLOGY INTERNSHIP OGY INTERNSHIP Bebeto Roth - 03/03/2010 2:30 PM CST Stabilizer Operator: Bebeto Roth Status: Final - Signature Encounter: 03 Mar 2010 Type: U Ortho Visit Department of Orthopaedic Surgery Administration: [address], [address] [place] [phone] or [phone] Appointments [email or web address] Mail Address: [address], [address] [place] [phone] Shmuel Ruiz MD General Orthopaedics Marcella Wilson [...] VISIT RE: JOCELIN PINEDO : 1980 DOS: 03/03/2010 Jocelin Garg is approximately five months out from a posterior spinal fusion for adolescent idiopathic scoliosis that was not treated until adulthood. She returns today with a couple of questions. 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 She is trying to earn enough money for an upcoming move. She has completed an SRS-30 questionnaire today and her score is an 85%. She has completed a spinal appearance questionnaire as well and an Oswestry lumbar disability questionnaire. Her Oswestry score today is 0. Visual analog for back pain is a 2, leg pain is 0. Pain drawing shows some in the left buttock region and the right paraspinal region. PHYSICAL EXAMINATION: Physical exam reveals a well-developed, well-nourished female in no acute distress. Her head is centered over her pelvis. Her shoulders are nearly level, right shoulder is up approximately 1 cm. She has less than 5 degrees angle of trunk rotation. Her gait is normal. Evaluation of her incisions shows that her posterior spine incision is well healed. She has some slight palpable implant prominence on the right proximal portion of the incision but this is not pronounced. RADIOGRAPHIC EXAMINATION: Radiographic exam performed today includes AP and lateral scoliosis films. INDICATION: Scoliosis surgery for followup. Comparison is made to radiographs from 11/25/2009 and 06/24/2009. RADIOGRAPHIC FINDINGS: Paired pedicle screws and rods are seen extending from T10 through L3 with a cross link present. There is a residual approximately 20- degree curve across this segment. There is slight thoracic hyperkyphosis, although there is not a junctional kyphotic finding. This is unchanged in comparison to the 11/25/2009 films and shows marked improvement of the previously measured 68-degree deformity across this segment. The overall sagittal alignment is as noted, slight thoracic hyperkyphosis but straight through the thoracolumbar junction. ASSESSMENT: Scoliosis status post fusion, stable. CLINICAL ASSESSMENT: Scoliosis status post fusion, stable. She has some mild symptoms, but these arecontinuing to improve. She has some donny-incisional numbness in the area which is decreasing and shehas a series of concerns that we talked through today. PLAN: I would like to see her engage in some low impact aerobic exercise type of programs which would be good for her. Otherwise, I think she can increase her activities as tolerated. She specifically expressed some anxiety about proximal junctional kyphosis and rods popping through the skin. I have explained that I think this is extremely unlikely to occur. She will return for routine followup in approximately six months at the one-year anniversary of the surgery. If there are any problems or issues in the interval, she is welcome to see me back sooner if needed. Bebeto Roth M.D. Professor Chief of Spine Service DP:pedro cc: Jocelin [facility] [address] [facility] [phone] Radha Navarro MD [facility] [address] [place] [address] Electronically signed by:Bebeto Roth M.D. Mar 11 2010 9:50AM BIOLOGY INTERNSHIP OGY INTERNSHIP documented in this encounter Plan of Treatment Not on filedocumented as of this encounter Visit Diagnoses Not on filedocumented in this encounter
--- OUTSIDE RECORDS SUMMARY | 2021-12-17 15:12 | XMS_ITS | Encounter Summary ---
:1980 Author Organization [place] Address [address] [place] [address] Care Team Providers Name Role Phone Unavailable Primary Care Provider Unavailable Encounter Details Date Type Department Care Team Description 11/17/2009 Office Visit-P INTERFACE P DEPT Radha Navarro MD Social History Tobacco Use Types Packs/Day Years Used Date Smoking Tobacco: Never Assessed Sex Assigned at Date Recorded Not on file documented as of this encounter Progress Notes Radha Navarro MD - 11/17/2009 8:20 AM CDT Assembler Tubing: Radha Navarro Status: Final Encounter: 17 Nov 2009 Type: FM Visit Reason For Visit This 29 year patient presents for anxiety fu. PHQ2 not completed because patient was not given PHQ2 Allergy List reviewed: Current Immunizations reviewed: Needs flu and Td, pt only wants Flu shot today Patient is at risk for influenza and should receive flu shot. Pharmacy and Medication list reviewed with patient and was up to date. Allergies No Known Drug Allergy. Smoking Assessment No tobacco use. Current Meds Calcium 600+D 600-400 MG-UNIT Tablet;TAKE 1 TABLET TWICE DAILY with meals; Rx Minocycline HCl 100 MG Capsule;TAKE 1 CAPSULE DAILY WITH FOOD.; Rx Saline Nasal [place] 0.65 % Solution;USE 1 SPRAY IN EACH NOSTRIL TWICE DAILY.; Rx AAA-MED RECONCILE;per pt.; RPT Fluticasone Propionate 50 MCG/ACT Suspension;USE 2 SPRAYS IN EACH NOSTRIL ONCE DAILY; Rx Loratadine 10 MG Tablet;TAKE 1 TABLET EVERY MORNING NEEDED.; Rx Fexofenadine HCl 180 MG Tablet;TAKE 1 TABLET DAILY.; Rx Tretinoin 0.025 % Cream;APPLY SPARINGLY TO AFFECTED AREA(S) ONCE DAILY AT BEDTIME.; Rx Fluconazole 150 MG Tablet;TAKE 1 TABLET 1 TIME ONLY.; Rx Hydrocortisone 2.5 % Cream;Apply twice daily.Thin layer .Not to use more than 2 weeks.; Rx HydrOXYzine Pamoate 25 MG Capsule;TAKE 1 - 2 CAPSULE as needed for itching.; Rx Hydrocodone-Acetaminophen 5-325 MG Tablet; Take 1-2 tablets by mouth Q 4-6 hours PRN pain; Rx HydrOXYzine Pamoate 25 MG Capsule;Take 1-2 tabs every 4-6 hours po prn muscle spasms; Rx. Active Problems Acne Vulgaris (706.1) Anxiety (300.00) Care Coordinated By; Tier 0 Congenital Scoliosis (754.2) Normal Routine History And Physical Adult (V70.0) Scoliosis (737.30). Vital Signs Recorded by jn on 17 Nov 2009 08:36 AM BP:88/62, LUE, Sitting, HR: 103 b/min, L Radial, Normal, Resp: 16 r/min, Normal, Weight: 149.6 lb. SOAP SUBJECTIVE: Azul Garg is a 29-year-old female patient of mine who is here today for the following concerns. 1.Follow up on her anxiety. Patient says that she is feeling much better. Three weeks ago she developed nausea so stopped taking her sertraline as well as her Klonopin. After that she did not have any panic attacks or any anxiety attacks. The patient thinks that the anxiety that she had was related toher surgery and as her surgery went fine she started feeling better. Today her anxiety score is 4/10. She had a psychologist consult during her hospitalization and would like to follow up with someone at [facility] for her anxiety. 2.Nausea. The patient says that for the last three weeks she has been feeling nauseous. She vomited a couple of times. She was seen in the ER where a UA was done and she was treated with Keflex for herpossible urinary tract infection. Patient says that Keflex caused her more nausea so she did not take the complete treatment. She is on oxycodone for her pain. Also was on OxyContin but as she started developing constipation she has stopped her OxyContin and is taking her oxycodone only. Denies any diarrhea or any fever along with these symptoms. PHYSICAL EXAMINATION: VITALS: Heart rate 103 per minute. Blood pressure 88/62. RESPIRATORY EXAM: Air entry bilaterally equal. No wheezes. No crackles. CARDIOVASCULAR EXAM: On auscultation the rate is regular and at the time of examination the patient was not tachycardic as she was noted at the beginning of the visit. ABDOMINAL EXAM: Soft, no palpable masses, no tenderness in the abdomen. ASSESSMENT: 1.Follow up on anxiety. 2.Nausea. 3.Constipation. PLAN: 1.As patient has discontinued all of her medications and is feeling better we will not continue on any pharmacological therapy for anxiety. As her anxiety was pretty significant during her hospitalization will refer her to psychology for further psychotherapy management. 2.For symptomatic relief, will give Zofran 4 mg as needed for her nausea. Nausea looks more likely secondary to her oxycodone use/constipation. 3.Constipation. The patient has constipation on and off and does have some laxatives given from the hospital during her discharge. Today will give her MiraLax for her constipation if needed. Advised patient to follow up with me as needed. Dictated by Radha Navarro MD, Resident; ; ; ; tf. Orders Ondansetron HCl 4 MG Tablet;TAKE 1 TABLET NEEDED BEFORE MEALS; Qty30; R0; Rx. Polyethylene Glycol 3350 Packet;TAKE 1 PACKET DAILY PRN constipation; Qty30; R3; Rx. Attending Note I have seen and examined patient. Reviewed and agree with the resident's History, PE, Assessment & Plan of Care. Supervising Physician: Alfredo Valdez Signature Signed By: Radha Navarro MD,Resident; 11/19/2009 8:30 PM DESKTOP ANALYST; Author. Signed By: MYLES ROBERT M.D.; 11/27/2009 8:03 AM DESKTOP ANALYST. documented in this encounter Plan of Treatment Not on filedocumented as of this encounter Visit Diagnoses Not on filedocumented in this encounter
--- OUTSIDE RECORDS SUMMARY | 2021-12-17 15:12 | XMS_ITS | Encounter Summary ---
:1980 Author Organization [place] Address [address] [facility] [place] [address] Care Team Providers Name Role Phone Unavailable Primary Care Provider Unavailable Encounter Details Date Type Department Care Team Description 12/14/2009 Office Visit-P INTERFACE P DEPT Radha Navarro MD Social History Tobacco Use Types Packs/Day Years Used Date Smoking Tobacco: Never Assessed Sex Assigned at Date Recorded Not on file documented as of this encounter Progress Notes Radha Navarro MD - 12/14/2009 4:40 PM CDT Alarm Adjuster: Radha Navarro Status: Final Encounter: 14 Dec 2009 Type: Visit Reason For Visit This 29 year patient presents for rash on chest, control and yeast infection x since 2 weeks ago max.. Allergy List reviewed: Current Immunizations reviewed: Pharmacy and Medication list reviewed with patient and was up to date. Allergies No Known Drug Allergy. Smoking Assessment No tobacco use. Current Meds Calcium 600+D 600-400 MG-UNIT Tablet;TAKE 1 TABLET TWICE DAILY with meals; Rx Minocycline HCl 100 MG Capsule;TAKE 1 CAPSULE DAILY WITH FOOD.; Rx Saline Nasal [employer] 0.65 % Solution;USE 1 SPRAY IN EACH NOSTRIL TWICE DAILY.; Rx Fluticasone Propionate 50 MCG/ACT Suspension;USE 2 [...] 4-6 hours po prn muscle spasms; Rx Ondansetron HCl 4 MG Tablet;TAKE 1 TABLET NEEDED BEFORE MEALS; Rx Polyethylene Glycol 3350 Packet;TAKE 1 PACKET DAILY PRN constipation; Rx AAA-MED RECONCILE;pt verified meds today visit; RPT. Active Problems Acne Vulgaris (706.1) Anxiety (300.00) Care Coordinated By; Tier 0 Congenital Scoliosis (754.2) Normal Routine History And Physical Adult (V70.0) Scoliosis (737.30). Vital Signs Recorded by jn on 14 Dec 2009 04:45 PM BP:105/74, HR: 108 b/min, Resp: 16 r/min, Weight: 147.6 lb, LMP: 25 Nov 2009. SOAP SUBJECTIVE: Azul Garg is a 29-year-old female patient of mine here today for the following concerns. 1.Rash. Patient has a itchy rash on the upper chest for the last few days. She has applied hydrocortisone 2.5% cream that but the cream was causing a burning sensation to her. She also took Vistaril 25mg 1 tablet only once and it did not seem to help much. No history of any new cosmetics. No history of any new medications. No specific allergies. The patient denies wearing new necklaces. There is no similar rash on any other part of her body. The patient says that she does have acne and was out of her minocycline for the last 1 to 1 1/2 months. 2. control. The patient says that she is not on any control and yesterday she had unprotected sexual intercourse. She does not want to get and would like to have emergency contraception today and also desires control method in the future. She has already tried the control pills before but it did not work for her as she does not remember taking the medications. She doesnot want to go for IUD or any implantation and desires a Depo Provera shot. Her last menstrual period was on November 25, 2009. She says that her periods are irregular so is not sure about her next period. REVIEW OF SYSTEMS: Complete 10-point review of systems is otherwise negative other than as stated inHPI. OBJECTIVE: VITALS: Temperature not taken today. Blood pressure 105/74. Heart rate initially 108 per minute. Respiratory rate 16 per minute. CHEST: Clear to auscultation. No wheezes. No crackles. CARDIOVASCULAR: Rate rhythm regular. SKIN: Examination of the upper chest shows small pink pimple-like dots in the upper chest with some surrounding erythema. There are acne comedones, 1 - 2, in the same area as well. No active bleeding. No abrasions in the area. ASSESSMENT: 1. Rash. Likely secondary to flare-up of acne as the patient was not taking her minocycline regularly. 2. Emergency contraception. PLAN: 1. I refilled her minocycline today and advised her to take that regularly. She was also advised to take her Vistaril 1-2 tablets as needed t.i.d. for itching. Patient will follow up with me if she does not get any relief with the medications. 2. Prescribed her Plan B 0.75 mg 1 tablet to take immediately and 1 after 12 hours. Advised the patient to use barrier method like condoms for the next two weeks. Follow up with me in next 2 weeks. Plan is to do test during her next visit if she does not get her period and according to results start her on Depo provera. Dictated by Radha Navarro MD, Resident; ; ; ; tf. Orders Renew Minocycline HCl 100 MG Capsule;TAKE 1 CAPSULE DAILY WITH FOOD; Qty30; R3; Rx. Plan B 0.75 MG Tablet;TAKE 1ST TABLET IMMEDIATELY, THEN 2ND TABLET 12 HOURS LATER; Qty2; R0; Rx. Attending Note I have seen and examined patient. Reviewed and agree with the resident's History, PE, Assessment & Plan of Care. Supervising Physician: Weston Valdez Signature Signed By: Radha Navarro MD,Resident; 12/16/2009 8:48 AM SHRIMP PEELING MACHINE OPERATOR; Author. Signed By: August Ontiveros M.D.; 12/17/2009 3:30 PM SHRIMP PEELING MACHINE OPERATOR; Author. documented in this encounter Plan of Treatment Not on filedocumented as of this encounter Visit Diagnoses Not on filedocumented in this encounter
--- OUTSIDE RECORDS SUMMARY | 2021-12-17 15:12 | XMS_ITS | Encounter Summary ---
:1980 Author Organization [place] Address [address] [place] [address] Care Team Providers Name Role Phone Unavailable Primary Care Provider Unavailable Encounter Details Date Type Department Care Team Description 04/20/2011 Results Only [facility] PHYS STANDARD Melanie, Radha [address] [facility] MD [place], [place] [phone] Social History Tobacco Use Types Packs/Day Years Used Date Smoking Tobacco: Never Assessed Sex Assigned at Date Recorded Not on file documented as of this encounter Plan of Treatment Not on filedocumented as of this encounter Procedures Procedure Name Priority Date/Time Associated Diagnosis Comme nts PAP IMAGED THIN Routine 04/20/2011 12:00 AM Resul ts for this LAYER SCREEN AVIONICS TECHNICIAN procedure are i n the results section. documented in this encounter Results PAP imaged thin layer screen (04/20/2011 12:00 AM AVIONICS TECHNICIAN) Component Value Ref Test Analysis Performed At [facility] Range Method Time Signature PAP NIL TITA Young Report TITA Acc#: [id number] ?? Signed: 04/22/2011 13:01 ?? MR#: [id number] SPECIMEN/STAIN PROCESS: Pap imaged thin layer prep screening (Surepath, FocalPoint w ith guided screening) ? Pap-Cyto x 1, Digene Reflex HPV x 1 SOURCE: Cervical ---- Pap imaged thin layer prep screening (Surepath, FocalPoint with guided screening) SPECIMEN ADEQUACY: Satisfactory for evaluation. -LMP not provided on specimen requisition. -Transformation zone component absent. CYTOLOGIC INTERPRETATION: Negative for Intraepithelial Lesion or Malignancy Electronically signed out by: APOLLO Moulton (ASCP) CLINICAL HISTORY: Papanicolaou Test Limitations: ??Cervical cytology is a scre ening test with limited sensitivity; regular screening is critical for cancer prevention; Pap tests are primarily effective for the diagnosis/prevention of squamous cell carcinoma, not adenoca rcinomas or other cancers. TESTING LAB LOCATION: ??[facility], [facility], [address] ?? [phone], Processed and screened at [facility], [facility] Specimen (Source) Anatomical Collection Method Collection Time Re ceived Time Location / / Volume Laterality 04/20/2011 04/21/2011 10:3 2 AM AVIONICS TECHNICIAN Radha Navarro MD LAB - OPTIME CLINICAL SPECIM EN Performing Organization Address City/State/ZIP Code Phon e Number [place] documented in this encounter Visit Diagnoses Not on filedocumented in this encounter
--- OUTSIDE RECORDS SUMMARY | 2021-12-17 15:12 | XMS_ITS | Encounter Summary ---
:1980 Author Organization [place] Address [facility] [place] [address] Care Team Providers Name Role Phone Unavailable Primary Care Provider Unavailable Encounter Details Date Type Department Care Team Description 04/20/2011 Results Only [facility] PHYS Radha De La Fuente [address] [facility] MD [place], [place] [phone] Social History Tobacco Use Types Packs/Day Years Used Date Smoking Tobacco: Never Assessed Sex Assigned at Date Recorded Not on file documented as of this encounter Plan of Treatment Not on filedocumented as of this encounter Procedures Procedure Name Priority Date/Time Associated Diagnosis Comme nts RUBELLA ANTIBODY Routine 04/20/2011 4:32 PM Resul ts for this IGG EVENT SECURITY OFFICER procedure are i n the results section. documented in this encounter Results Rubella antibody IgG (04/20/2011 4:32 PM EVENT SECURITY OFFICER) P athologist Signature Rubella PALOMA 48 IU/mL [facility] Comment: Interpretation: Positive, Immun e Specimen Anatomical Collection Method Collection Time Receive d Time (Source) Location / / Volume Laterality 04/20/2011 4:32 PM 2 4:37 EVENT SECURITY OFFICER PM EVENT SECURITY OFFICER Radha Navarro MD LAB - BLOOD ORDERABLES Performing Organization Address City/State/ZIP Code Phon e Number [facility] [address] [place] [address] [facility] documented in this encounter Visit Diagnoses Not on filedocumented in this encounter
--- OUTSIDE RECORDS SUMMARY | 2021-12-17 15:12 | XMS_ITS | Encounter Summary ---
:1980 Author Organization [place] Address [address] [place] [address] Care Team Providers Name Role Phone Unavailable Primary Care Provider Unavailable Encounter Details Date Type Department Care Team Description 04/20/2011 Results Only [facility] PHYS STANDARD Melanie, Radha [address] [facility] MD [place], [place] [address] [phone] Social History Tobacco Use Types Packs/Day Years Used Date Smoking Tobacco: Never Assessed Sex Assigned at Date Recorded Not on file documented as of this encounter Plan of Treatment Pending Results Name Type Priority Associated Diagnoses Date/Ti me screen with HIV Lab Routine 08/2011 4:32 PM CLINICAL CARE COORDINATOR documented as of this encounter Procedures Procedure Name Priority Date/Time Associated Diagnosis Comme nts SCREEN WITH Routine 04/20/2011 4:32 PM CLINICAL CARE COORDINATOR HIV documented in this encounter Visit Diagnoses Not on filedocumented in this encounter
--- OUTSIDE RECORDS SUMMARY | 2021-12-17 15:12 | XMS_ITS | Encounter Summary ---
:1980 Author Organization [place] Address [facility] [place] [address] Care Team Providers Name Role Phone Unavailable Primary Care Provider Unavailable Encounter Details Date Type Department Care Team Description 04/20/2011 Results Only [facility] PHYS STANDARD Radha Navarro [address] [facility] MD [place] [place], [place] [phone] Social History Tobacco Use Types Packs/Day Years Used Date Smoking Tobacco: Never Assessed Sex Assigned at Date Recorded Not on file documented as of this encounter Plan of Treatment Not on filedocumented as of this encounter Procedures Procedure Name Priority Date/Time Associated Diagnosis Comme nts HIV 1 AND 2 Routine 04/20/2011 4:32 PM Results f or this ANTIBODY ([facility]) PROPERTY ANALYST procedure a re in the results section. documented in this encounter Results HIV 1 and 2 Antibody (04/20/2011 4:32 PM PROPERTY ANALYST) Analysis Performed At Patho logist Time Signature HIV 1&2 Negative NEG [facility] Antibody [facility] Specimen Anatomical Collection Method Collection Time Receive d Time (Source) Location / / Volume Laterality 04/20/2011 4:32 PM 2 4:37 PROPERTY ANALYST PM PROPERTY ANALYST Radha Navarro MD LAB - BLOOD ORDERABLES Performing Organization Address City/State/ZIP Code Phon e Number [facility] [address] [place] [address] [facility] documented in this encounter Visit Diagnoses Not on filedocumented in this encounter
--- OUTSIDE RECORDS SUMMARY | 2021-12-17 15:12 | XMS_ITS | Encounter Summary ---
:1980 Author Organization [place] Address [address] [facility] [place] [address] Care Team Providers Name Role Phone Unavailable Primary Care Provider Unavailable Encounter Details Date Type Department Care Team Description 10/27/2009 Office Visit-P INTERFACE P DEPT Radha Navarro MD Social History Tobacco Use Types Packs/Day Years Used Date Smoking Tobacco: Never Assessed Sex Assigned at Date Recorded Not on file documented as of this encounter Progress Notes Radha Navarro MD - 10/27/2009 2:40 PM CDT [employer] Records Analyst: Radha Navarro Status: Final Encounter: 27 Oct 2009 Type: FM Visit Reason For Visit This 29 year patient presents for follow up hosp stay, constiapation and rash on feet. PHQ2 completed and was negative Allergy List reviewed: Current Immunizations reviewed: If adult, last Td unsure of last TD Pharmacy and Medication list reviewed with patient and was reviewed. Allergies No Known Drug Allergy. Current Meds Calcium 600+D 600-400 MG-UNIT Tablet;TAKE 1 TABLET TWICE DAILY with meals; Rx Minocycline HCl 100 MG Capsule;TAKE 1 CAPSULE DAILY WITH FOOD.; Rx Saline Nasal [place] 0.65 % Solution;USE 1 SPRAY IN EACH [...] MG Tablet;TAKE 1 TABLET 1 TIME ONLY.; Rx. 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 Vital Signs Recorded by jose cruz on 27 Oct 2009 02:25 PM BP:100/69, LUE, Sitting, HR: 72 b/min, L Radial, Resp: 16 r/min, Weight: 151 lb. SOAP SUBJECTIVE: This is a 29-year-old female patient of mine who is here today with the following concerns. 1. Rash on her feet. 2. Follow up of her anxiety after the surgery. 1.Rash on her feet: The patient says that after her hospitalization one week ago she developed some redness and itching on both her feet. It is basically in the spaces between her toes. It itches all the time. She has not applied any different cosmetic cream or any different cosmetic powder to that area. She has not changed her detergent. Patient has tried Benadryl at home for itching, which does notseem to help her with the itching. Apart from new antibiotic in the hospital, which is ciprofloxacin, for her UTI, she has not tried any new antibiotics recently. She does not have similar rash on any other part of her body although has acne on her back and chest. The patient denies using socks or shoes for long time at home and denies that her feet are moist for a long time. She also tried calamine lotion at home without any relief. 2. Follow up of her anxiety. The patient was hospitalized for spinal fusion secondary to her scoliosis. She says that she was very anxious about the surgery and she was thinking that the surgery would paralyze her and she could not walk. She developed anxiety during her hospitalization which was treated with p.r.n. Ativan.On discharge she re ceived Zoloft 25 mg daily with Klonopin 0.25 mg b.i.d. The patient states that she forgot to take her Klonopin twice a day but instead of using it twice she wasusing it once a day. Patient states that she feels her anxiety was related to the procedure. After going home she is feeling much better. She does not know whether it is because of the medications thatshe is receiving or the feeling that she is able to walk and not paralyzed after the surgery. The patient feels lack of energy after her hospitalization but is not clear whether it is because ofthe surgical stress or mild depression. We filled out the PHQ-9 form and the score is less than 10 without any suicidal or homicidal ideation. REVIEW OF SYSTEMS: CONSTITUTIONAL: No fevers. No night sweats. RESPIRATORY: No shortness of breath. No cough. CARDIOVASCULAR: No chest pain. No palpitations. GASTROINTESTINAL: No nausea. No vomiting. No abdominal pain. The rest of the review of systems is completely negative other than HPI. PHYSICAL EXAMINATION: VITALS: Are reviewed, and are normal. CARDIOVASCULAR: Rate, rhythm regular. RESPIRATORY: Patient has bilaterally equal air entry. No wheezes. No crackles. FEET: Bilaterally, the patient has redness in the interdigital spaces. There is no flakiness of the skin. The rash is also present on the dorsum of her leg. It is pink in color and not raised. There isno similar rash on any other part of her body. ASSESSMENT: 1. Rash of unknown etiology. 2. Anxiety. PLAN: 1. For her rash, prescribed Vistaril 25 mg 1-2 tablets as needed for itching. Also prescribed hydrocortisone 2.5% cream to apply on the rash. I advised patient to follow up with me if her rash does notgo away with the above treatment. The patient agrees with the plan. 2. For her anxiety, as the patient says that she has not been taking Klonopin regularly, advised herto take Klonopin on an as needed basis and try to make a diary and write it down when she is taking it. She should continue with her Zoloft 25 mg daily for now. I advised her to see me in two weeks andat that time we would consider discontinuing her Klonopin and adjusting the Zoloft dose. The patientagrees with the plan. Dictated by Radha Navarro MD, Resident; ; ; ; tf. Assessment Anxiety (300.00) Orders Hydrocortisone 2.5 % Cream;Apply twice daily.Thin layer .Not to use more than 2 weeks; Qty20; R0; Rx. HydrOXYzine Pamoate 25 MG Capsule;TAKE 1 - 2 CAPSULE as needed for itching; Qty15; R0; Rx. Attending Note Patient reviewed and discussed with resident. Agree with Assessment and Plan of Care. Supervising Physician: Toshia Valdez Signature Signed By: Radha Navarro MD,Resident; 10/29/2009 4:44 PM AD COPY WRITER; Author. Signed By: Cindy Pope M.D.; 10/29/2009 6:06 PM AD COPY WRITER; Author. documented in this encounter Plan of Treatment Not on filedocumented as of this encounter Visit Diagnoses Not on filedocumented in this encounter
--- OUTSIDE RECORDS SUMMARY | 2021-12-17 15:13 | XMS_ITS | Encounter Summary ---
:1980 Author Organization [place] Address [address] [facility] [place] [address] Care Team Providers Name Role Phone Unavailable Primary Care Provider Unavailable Encounter Details Date Type Department Care Team Description 10/17/2009 Historic Notes INTERFACED REPORT August Ontiveros MD [address] [facility] [address] [place] [phone] (Wo rk) Social History Tobacco Use Types Packs/Day Years Used Date Smoking Tobacco: Never Assessed Sex Assigned at Date Recorded Not on file documented as of this encounter Progress Notes August Ontiveros - 04/30/2010 8:39 PM CDT ATTENDING PHYSICIAN - Consulting Service: We are continuing to follow and manage the patient at the request of the attending. Interval History - Interval History: Patient now has NG tube secondary to nausea and vomiting and has florez in place. She reports discomfort with the NG tube and continued anxiety -unclear how much of the oral anxiety pills she kept down. Review of Systems - Constitutional: Negative - Musculoskeletal: Negative - Respiratory: Negative - Cardiovascular: Negative - Neuro: Negative - Psych Comments: continued anxiety Physical Exam - General: Appears alert calm and moderately uncomfortable - Head: AT/NT - Eyes: EOMI - Lungs: CTA - Cardiovascular: RRR w/o murmurs - Abdominal/Rectal: soft, BS + Vital Signs/Labs/Imaging/Culture Review - Vital Signs: Vital Signs reviewed past 24 hours. - Lab Results: All lab results reviewed past 24 hours. - Imaging Results: All imaging results reviewed past 24 hours. VS 1. Vital Signs Adult Med Surg 12:00 - Temperature degrees 37.2 C - Temperature degrees 99.1 F - Heart Rate beats/min 125 - BP Cuff Systolic BP 117 mmHg - BP Cuff Diastolic BP 68 mmHg - BP Cuff Mean BP mmHg 84 - Resp, Pulse Ox Resp 16 Rate - Resp, Pulse Ox Pulse 96 Oximetry SpO2 % - Resp, Pulse Ox Room air Patient on Assessment and Plan - Assessment/Plan: 29 yr old female with h/o acne vulgaris, vaginal yeast infection admitted under [facility] for Spinal fusion for her scoliosis. 1. Scoliosis s/p spinal fusion done on 10/12, today is day #5 : Managed by primary team. 2. Anxiety: Pt feels nauseous, tingling in her hands . --Continue with her Ativan 0.25 mg PO as needed for anxiety. will continueclonazepam and zoloft. Also wrote for lorazepam if unable to take po. 3. Allergic rhinitis: Better, Continue home meds. 4.FEN/GI: Diet as tolerated. Zofran for nausea and vomiting. 5. Dispo: Depends on primary team. 6. UTI on ciprofloxacin also has Diffculty voiding -will continue flomax daily to assist in bladder shincter relaxation. Awaiting urology consult. Signatures AUGUST ONTIVEROS)[Signed 12:30] Authored: ATTENDING PHYSICIAN, Interval History, Review of Systems, Physical Exam, Vital Signs/Labs/Imaging/Culture Review, VS, Assessment and Plan documented in this encounter Plan of Treatment Not on filedocumented as of this encounter Visit Diagnoses Not on filedocumented in this encounter
--- OUTSIDE RECORDS SUMMARY | 2021-12-17 15:13 | XMS_ITS | Encounter Summary ---
:1980 Author Organization [place] Address [address] [facility] [address] Care Team Providers Name Role Phone Unavailable Primary Care Provider Unavailable Encounter Details Date Type Department Care Team Description 10/16/2009 Historic Notes INTERFACED REPORT Interface, Transcript on, Social History Tobacco Use Types Packs/Day Years Used Date Smoking Tobacco: Never Assessed Sex Assigned at Date Recorded Not on file documented as of this encounter Progress Notes Interface, Junior Database Administrator - 04/30/2010 8:41 PM CDT Notification - Notified Person:: Resident - Notified Persons Kevraquel Rios Name: - Notification Time:: 17:20 - Notification Talked with Physician Interaction:: - Purpose of Notified patient no longer has IV access. notification:: Notified patient c/o nausea. - Orders received?: Yes - Comments:: Orders received: 1. Does not need IV access 2. Zofran ODT 4mg every 6 hours PRN for nausea. Signatures MAIKEL GRUBBS (RN)[Signed 17:22] Authored: Notification Interface, Junior Database Administrator - 04/30/2010 8:41 PM CDT Notification - Notified Person:: Resident - Notified Persons Kev Rios Name: - Notification Time:: 21:00 - Notification Talked with Physician Interaction:: - Purpose of Notified that patient requested new IV to be notification:: placed to received IV Zofran and Compazine due to persistent nausea. - Orders received?: Yes - Comments:: notified that patient requested florez catheter be placed. Orders received: 1. Okay to place florez catheter 2. Okay to place new IV Signatures MAIKEL GRUBBS (RN)[Signed 21:03] Authored: Notification Interface, Junior Database Administrator - 04/30/2010 8:41 PM CDT MD Notification - Notified Person:: Resident - Notified Persons Kev Rios Name: - Notification Time:: 22:00 - Notification Talked with Physician Interaction:: - Purpose of Notified that patient passed loose stool two notification:: seperate times in bed when she thought she was passing stool. - Orders received?: No Signatures MAIKEL GRUBBS (KENNY)[Signed 22:46] Authored: Notification documented in this encounter Plan of Treatment Not on filedocumented as of this encounter Visit Diagnoses Not on filedocumented in this encounter
--- OUTSIDE RECORDS SUMMARY | 2021-12-17 15:13 | XMS_ITS | Encounter Summary ---
:1980 Author Organization [place] Address [address] [facility] [place] [address] Care Team Providers Name Role Phone Unavailable Primary Care Provider Unavailable Encounter Details Date Type Department Care Team Description 10/17/2009 Historic Notes INTERFACED REPORT Myles De Oliveira MD [address] [place], [place] [address] (Wo rk) Social History Tobacco Use Types Packs/Day Years Used Date Smoking Tobacco: Never Assessed Sex Assigned at Date Recorded Not on file documented as of this encounter Progress Notes Myles De Oliveira - 04/30/2010 8:40 PM CDT Ortho SPine Attending POD 5 PSF Scoliosis Pt seen and evaluated. Radiographs reviewed. Has had an episode of emesis this AM. Xray from yesterday shows significant bowel distention. Given an enema this AM modest results. STill with a tympanitic abdomen but bno rebound or guarding. ALos has a UTI and retention. Pennington is back in and we have asked urology to see patient as well. Myles De Oliveira MD [Signature] Author: MYLES DE OLIVEIRA) [Signed 10:34] documented in this encounter Plan of Treatment Not on filedocumented as of this encounter Visit Diagnoses Not on filedocumented in this encounter
--- OUTSIDE RECORDS SUMMARY | 2021-12-17 15:13 | XMS_ITS | Encounter Summary ---
:1980 Author Organization [place] Address [address] [facility] [place] [address] Care Team Providers Name Role Phone Unavailable Primary Care Provider Unavailable Encounter Details Date Type Department Care Team Description 10/17/2009 Historic Notes INTERFACED REPORT Jana Sullivan MD [facility] [address] [facility] [address] [place], [place] [address] (Wo rk) Social History Tobacco Use Types Packs/Day Years Used Date Smoking Tobacco: Never Assessed Sex Assigned at Date Recorded Not on file documented as of this encounter Progress Notes Marvin Us - 04/30/2010 8:39 PM CDT Assessment and Plan - Assessment/Plan: 29 y/o F with urinary retention and UTI s/p T10-L3 spinal fusion. - treat UTI x 5 days with appropriate Abx based on culture - clean intermittent catheterization(CIC) vs indwelling catheter - CIC has lower risk for recurrent UTI and allows patient to monitor resolution of retention more clearly; patient can decide - if retention still present at time of d/c, pt can f/u in Urology clinic 1 week after d/c. Can be discharged home with indwelling Florez or CIC - encourage ambulation and minimize ambulation as able full note dictated #[id number] Addendum Section 09:35 Entered By:ROB WEAVER Patient seen and examined. Consult for urinary retention secondary to E Coli UTI following spinal fusion procedure for scoliosis. Florez cath replaced for PVR of 500cc. Will remove florez today. Continueantibiotics for UTI. Retention should resolve with resolution of UTI and in the meantime would advise intermittent catheterization. Will request nurses to teach patient to self cath. Signatures ROB WEAVER)[Signed 09:33] Authored: Addendum Section MARVIN US)[Signed 14:37] Authored: Assessment and Plan documented in this encounter Plan of Treatment Not on filedocumented as of this encounter Visit Diagnoses Not on filedocumented in this encounter
--- OUTSIDE RECORDS SUMMARY | 2021-12-17 15:13 | XMS_ITS | Encounter Summary ---
:1980 Author Organization [place] Address [facility] [facility] [place] [address] Care Team Providers Name Role Phone Unavailable Primary Care Provider Unavailable Encounter Details Date Type Department Care Team Description 10/15/2009 Historic Furniture Stainer INTERFACED REPORT InterfaceFranny MD Social History Tobacco Use Types Packs/Day Years Used Date Smoking Tobacco: Never Assessed Sex Assigned at Date Recorded Not on file documented as of this encounter Plan of Treatment Not on filedocumented as of this encounter Visit Diagnoses Not on filedocumented in this encounter
--- OUTSIDE RECORDS SUMMARY | 2021-12-17 15:13 | XMS_ITS | Encounter Summary ---
:1980 Author Organization [place] Address [address] [facility] [place] [address] Care Team Providers Name Role Phone Unavailable Primary Care Provider Unavailable Encounter Details Date Type Department Care Team Description 10/17/2009 Consultation [facility] Ronn Weaver MD [address] [place], [place] [id number] (Wo rk) Social History Tobacco Use Types Packs/Day Years Used Date Smoking Tobacco: Never Assessed Sex Assigned at Date Recorded Not on file documented as of this encounter Progress Notes Shannon Weaver MD - 10/18/2009 10:56 AM CDT FINAL HISTORY OF PRESENT ILLNESS: Azul Dinh is a 29-year-old female who is postop day #5 status post posterior spinal fusion T10 through L3 for adult idiopathic scoliosis. She has failed trial of void x2 since surgery. She has been unable to void in any amount after Pennington catheter removal. She notes that she did feel quite uncomfortable after some time with the bladder scan volumes approximately 500 mL. She denies any previous history of urinary retention and denies any history of recurrent urinary tract infections. She does have a remote history of urinary tract infection. Denies a history of nephrolithiasis or any other genitourinary problems. The patient does have a urine culture from yester day that is positive for more than 100,000 gram-negative rods. Her preoperative urine culture was negative. The patient has not had any fevers or back or flank pain. REVIEW OF SYSTEMS: A 14-point review of systems was obtained and is positive for discomfort from NGtube, mild nausea and back pain. The remainder of the 10- point review of systems is negative except as indicated in the history of present illness or as pertains to the patient's past medical history. PAST MEDICAL HISTORY: Scoliosis, status post spinal fusion. MEDICATIONS: 1. Calcium with vitamin D. 2. Fexofenadine. 3. Fluticasone. 4. Loratadine. 5. Tretinoin. FAMILY HISTORY: Noncontributory. PHYSICAL EXAMINATION: VITAL SIGNS: Temperature 99.1, heart rate 125, blood pressure 117/60, heart rate 16, spO2 of 96% onroom air. GENERAL: No acute distress. Alert and oriented. HEENT: Normocephalic, atraumatic. Sclerae are anicteric. NECK: Supple. LUNGS: Respirations nonlabored. CARDIOVASCULAR: Regular pulse, tachycardic, no peripheral edema. ABDOMEN: Soft, nontender, nondistended, no suprapubic pain or fullness. BACK: No flank tenderness patient does have a mid to lower midline tenderness. EXTREMITIES: Moves all extremities equally. GENITOURINARY: Pennington catheter in place with pedro-colored concentrated urine. NEUROLOGIC: No focal abnormalities. SKIN: No rash, lesions. PSYCHIATRIC: Blunted affect. LABORATORY DATA: Urine culture from 10/16/2009 positive for greater than 100,000 gram-negative rods. Hemoglobin 9.5. Creatinine on 10/13 is 0.7. ASSESSMENT: Azul is a 29-year-old female with postoperative acute urinary retention. This is likely multifactorial including urinary tract infection, narcotic pain medications, decreased mobility after surgery, and recent back surgery. RECOMMENDATIONS: 1. Continue ciprofloxacin for urinary tract infection and monitor. Followup on culture results and change antibiotics accordingly. 2. Discussed with patient the options for bladder drainage including indwelling Pennington catheter versus clean intermittent catheterization. I explained to the patient that there is at lower risk for recurrent or persistent urinary tract infection with intermittent catheterization and total length of time of catheterization may be less with intermittent catheterization as residuals and return of spontaneous voiding are easier to follow. The patient states that at this time she prefers indwelling catheter but in the next day she may change her mind and elect to start clean intermittent catheterization at that time. 3. At the time of discharge, the patient can be discharged with indwelling Pen[place] catheter with instructions to follow up in Urology Clinic 1 week after discharge or she can be instructed in clean intermittent catheterization and follow up in Urology Clinic 1week after discharge as well. 4. Recommend treating for a total of 5 day course for the urinary tract infection. Electronically signed on 10/18/2009 10:55 by SHANNON WEAVER MD As dictated by MARVIN US MD MT: nancy Name: AZUL DINH MRN: [id number] Account: [id number] : 1980 Consult Date: 10/17/2009 Document: [id number] cc: Bebeto Roth Jr, MD [facility] documented in this encounter Plan of Treatment Not on filedocumented as of this encounter Visit Diagnoses Not on filedocumented in this encounter
--- OUTSIDE RECORDS SUMMARY | 2021-12-17 15:13 | XMS_ITS | Encounter Summary ---
:1980 Author Organization [place] Address [address] [facility] [place] [address] Care Team Providers Name Role Phone Unavailable Primary Care Provider Unavailable Encounter Details Date Type Department Care Team Description 10/18/2009 Historic Notes INTERFACED REPORT Radha Navarro MD Social History Tobacco Use Types Packs/Day Years Used Date Smoking Tobacco: Never Assessed Sex Assigned at Date Recorded Not on file documented as of this encounter Progress Notes Radha Navarro MD - 04/30/2010 8:37 PM CDT ATTENDING PHYSICIAN - Consulting Service: We are continuing to follow and manage the patient at the request of the attending. - Attending Patient seen and evaluated by me separately from Examination: the house staff team. I reviewed the note below and agree. - Review of findings: I have reviewed today's vital signs, medications, labs and imaging results. Interval History - Interval History: No overnight acute events. Complaining about tingling in her right middle and ring fingers, had similar tingling before as well and was diagnosed with Carpel tunnel Syndrome. Feels less nauseous today and feels hungry. she was able to void independantly today. Review of Systems - Constitutional No fever, no night sweats. Comments: - Musculoskeletal Has back pain with movements. Comments: - Respiratory Comments: No cough, no wheezing, no SOB. - CV Comments: No chest pain, no palpitaions. - GI Comments: Less nauseous. No vomiting. NG tube out and does not want to put it back again. - Comments: Florez's in plac but willing to go for intermittent self cath. - Psych Comments: Less anxious. No depression. Physical Exam - General: Alert, comfortable, eating her breakfast. - Lungs: Clear to auscultaion, no wheezes ,no crackles. - Cardiovascular: Tachycardic. - Abdominal/Rectal: Positive bowel sounds in all 4 quadrants. - : Foely's in place. Vital Signs/Labs/Imaging/Culture Review - Vital Signs: Vital Signs reviewed past 24 hours. - Lab Results: All lab results reviewed past 24 hours. - Imaging Results: All imaging results reviewed past 24 hours. VS 1. Vital Signs Adult Med Surg Temperature degrees F(last 24 hours) 08:00 97.8 20:00 98.8 15:18 98.9 12:00 99.1 Heart Rate beats/min(last 24 hours) 08:00 109 20:00 116 15:18 118 12:00 125 BP Cuff Systolic BP mmHg(last 24 hours) 08:00 100 20:00 113 15:18 114 12:00 117 Resp, Pulse Ox Resp Rate(last 24 hours) 08:00 16 20:00 16 15:18 16 12:00 16 Assessment and Plan - Assessment/Plan: 29 yr old female with h/o acne vulgaris, vaginal yeast infection admitted under [facility] for Spinal fusion for her scoliosis. 1. Scoliosis s/p spinal fusion done on 10/12, today is day #7 : Managed by primary team. 2. Anxiety:Pt is better today Pt feels nauseous, tingling in her hands . --Continue with her Ativan 0.25 mg PO as needed for anxiety. -- continue clonazepam and zoloft. -- Also wrote for lorazepam if unable to take po. --Psychology consult still pending.-Discussse with [facility] psychologist. 3. UTI and urinary retention: Pt had Florez's post op, after taking it out developed retention, was put on Flomax . Developed UTI. Seen by Urologist. Please see the note by Urology for more details. -- Urine culture positive for more than 100, 000 colonies of E coli susceptible for Cipro. Continue with Cipro for complete 5 days. Today is Day # 3/5. -- florez is d/janett. -- Continue with Flomax. 4. Tachycardia: Pt has tachycardia since admission. Upon asking she states that she was always told that her heart rate is fast when she is in Doctor's office. Pt looks well hydrated with adequet u/o and stable BP. Less likely dehydration. HR is high when she is stable and not anxious. --will check her TSH. 5. Tingling in rigt hand: Had since long time but increased after surgery. Could be anxiety related. Will follow up as an outpt for this concern. 6. Allergic rhinitis: Better, Continue home meds. 7.FEN/GI: Diet as tolerated. Zofran for nausea and vomiting. 6. Dispo: Depends on primary team. Signatures DENISHA OAKES)[Signed 13:27] Authored: ATTENDING PHYSICIAN, Interval History, Assessment and Plan RADHA NAVARRO)[Signed 09:34] Authored: Interval History, Review of Systems, Physical Exam, Vital Signs/Labs/Imaging/Culture Review, VS, Assessment and Plan documented in this encounter Plan of Treatment Not on filedocumented as of this encounter Visit Diagnoses Not on filedocumented in this encounter
--- OUTSIDE RECORDS SUMMARY | 2021-12-17 15:13 | XMS_ITS | Encounter Summary ---
:1980 Author Organization [place] Address [facility] [facility] [place] [address] Care Team Providers Name Role Phone Unavailable Primary Care Provider Unavailable Encounter Details Date Type Department Care Team Description 10/14/2009 Historic Results INTERFACED REPORT Kev Rios MD [facility] [address] [place], [place] [address] (Wo rk) Social History Tobacco Use Types Packs/Day Years Used Date Smoking Tobacco: Never Assessed Sex Assigned at Date Recorded Not on file documented as of this encounter Plan of Treatment Not on filedocumented as of this encounter Procedures Procedure Name Priority Date/Time Associated Diagnosis Comme nts HEMOGLOBIN Routine 10/14/2009 6:22 AM Results f or this CDT procedure are i n the results section . documented in this encounter Results (ABNORMAL) Hemoglobin (10/14/2009 6:22 AM CDT) P athologist Signature Hemoglobin 9.2 (L) 11.7 - 15.7 MISYS g/dL Specimen (Source) Anatomical Collection Method Collection Time Re ceived Time Location / / Volume Laterality 10/14/2009 6:22 AM 0 CDT Kev Rios MD LAB - BLOOD ORDERABLES Performing Organization Address City/State/ZIP Code Phon e Number MISYS documented in this encounter Visit Diagnoses Not on filedocumented in this encounter
--- OUTSIDE RECORDS SUMMARY | 2021-12-17 15:13 | XMS_ITS | Encounter Summary ---
:1980 Author Organization [place] Address [address] [facility] [place] [address] Care Team Providers Name Role Phone Unavailable Primary Care Provider Unavailable Encounter Details Date Type Department Care Team Description 10/14/2009 Historic Notes INTERFACED REPORT Kev Rios MD [facility] [address] [place], [place] [address] (Wo rk) Social History Tobacco Use Types Packs/Day Years Used Date Smoking Tobacco: Never Assessed Sex Assigned at Date Recorded Not on file documented as of this encounter Progress Notes Kev Rios MD - 04/30/2010 8:52 PM CDT Ortho Pain controlled overnight, transitioned to PO. Did not take PO yesterday as she was sleeping during all meals. Was up with walker and felt dizzy. AF, tachy 120s, bp stable. on RA. UO: adequate. Drain: 150/60 last two shifts A&O, NAD nonlabored breathing BLE: SILT L2-S1. 5/5 flex/ext hips/knees/toes/ankles. CR < 2 seconds A/P: POD #2 T10-L3 PSF - prn pain meds - ADAT - continue drain for now until < 30cc's/shift - WBAT, up with PT - encourage IS - florez out when ambulatory - appreciate Smileys input - upright xrays in a couple days - anticipate home by the end of the week Kev Rios MD [phone] [Signature] Author: KEV RIOS) [Signed 06:54] documented in this encounter Plan of Treatment Not on filedocumented as of this encounter Visit Diagnoses Not on filedocumented in this encounter
--- OUTSIDE RECORDS SUMMARY | 2021-12-17 15:13 | XMS_ITS | Encounter Summary ---
:1980 Author Organization [place] Address [address] [place] [address] Care Team Providers Name Role Phone Unavailable Primary Care Provider Unavailable Encounter Details Date Type Department Care Team Description 10/14/2009 Historic Notes INTERFACED REPORT Interface, Transcript on, Social History Tobacco Use Types Packs/Day Years Used Date Smoking Tobacco: Never Assessed Sex Assigned at Date Recorded Not on file documented as of this encounter Progress Notes Interface, Education Site Manager - 04/30/2010 8:52 PM CDT General Information - Patient Profile See Profile for full history and prior level of Review: function - Onset Date: - Referring Physician: Bebeto Roth) / Kev Rios) - Patient/Family Goals: Pt does not state, patient anxious regarding progress and surgery. - History of Present s/p PSF T10-L3. Problem: - Treatment Diagnosis: Impaired Mobility and ADL's and pain dysfunction - Precautions/Limitati_ Spine precautions ons: - Weight Bearing Weight bearing as tolerated Status: - Observations: Patient sleepy Cognitive Status - Orientation: orientation to person, place and time - Level of lethargic/somnolent Consciousness: - Follows Commands and 75% of the time Answers Questions: - Personal Safety and intact Judgment: - Memory: intact Pain - Pain: Yes (see Vital Signs flowsheet), 7/10 at rest and 9/10 with activity Range of Motion - Range of Motion: ROM was appropriate in all areas - Comment: B UE ROM WFL for daily tasks, not formally assessed due to spinal surgery. Strength - Strength: Strength was appropriate in all areas - Comments: B UE strength WFL for daily tasks, not formally assessed due to spinal surgery. Bed Mobility: Rolling/Turning - Level of stand-by assist Termo: - Physical supervision; verbal cues Assist/Nonphysical Assist: - Assistive Device: bed rails Bed Mobility: Scooting/Bridging - Level of stand-by assist Termo: - Physical verbal cues; supervision Assist/Nonphysical Assist: - Assistive Device: bed rails Bed Mobility: Supine to Sit - Level of minimum assist (75% patients effort) Termo: - Physical set-up required; verbal cues Assist/Nonphysical Assist: - Assistive Device: bed rails Toilet Transfer - Level of unable to perform, wanted to have pain Termo: medication prior to getting OOB Eating/Self-Feeding - Level of stand-by assist Termo: - Physical set-up required Assist/Nonphysical Assist: Grooming - Level of stand-by assist Termo: - Physical set-up required Assist/Nonphysical Assist: Upper Body Dressing - Level of minimum assist (75% patients effort) Termo: - Physical set-up required; verbal cues; 1 person assist Assist/Nonphysical Assist: Lower Body Dressing - Level of maximum assist (25% patients effort) Termo: - Physical set-up required; verbal cues; 1 person assist Assist/Nonphysical Assist: - Assistive Device: securities clerk; sock-aid Self Care Analysis - Impairments fear and anxiety; decreased flexibility; pain; Contributing to post surgical precautions; decreased ROM Impaired Activities of Daily Living: Treatment Plan - Treatments: ADL Retraining, Functional Transfer Training, Transfer Training Clinical Impression - Skilled Criteria for Yes Therapy Intervention Met: - Assessment: Patient is a 29 year old female s/p T10-L3 posterior spinal fusion. Patient presenting with decreased mobility, anxiety and pain which impairs overall ADL Termo. Patient declined OOB transfers this morning due to pain and wanting to have pain meds prior to activity. Pat[place] will benefit from continued skilled OT intervention for ADL retraining, functional transfer training and patient education on appropriate AE and DME resources for safe discharge home. - Rehabilitation Good, to achieve stated therapy goals Potential (see POC for therapy goals): - Demonstrates need for PT; [employer] referral to another service: - Predicted Duration of 3-4 days Therapy: - Predicted Frequency Daily of Therapy: - Discharge Home with assist Destination: - Anticipated Equipment Bathing equipment; Toileting equipment; Dressing at Discharge: equipment - Risks and Benefits of Yes Treatment have been explained.: - Patient, family Yes and/or staff in agreement with Plan of Care: - Comments: Patient anxious regarding surgery, activity and progress. Valarie Meraz (OT)[Signed 10:00] Authored: General Information, Cognitive Status, Pain, Range of Motion, Strength, Bed Mobility: Rolling/Turning, Bed Mobility: Scooting/Bridging, Bed Mobility: Supine to Sit, Toilet Transfer, Eating/Self-Feeding, Grooming, Upper Body Dressing, Lower Body Dressing, Self Care Analysis, Treatment Plan, Clinical Impression documented in this encounter Plan of Treatment Not on filedocumented as of this encounter Visit Diagnoses Not on filedocumented in this encounter
--- OUTSIDE RECORDS SUMMARY | 2021-12-17 15:13 | XMS_ITS | Encounter Summary ---
:1980 Author Organization [place] Address [facility] [facility] [address] Care Team Providers Name Role Phone Unavailable Primary Care Provider Unavailable Encounter Details Date Type Department Care Team Description 10/16/2009 Results Only [facility] Kev Rios MD Radiology Results [facility] [address] [place], [place] [address] (Wo rk) Social History Tobacco Use Types Packs/Day Years Used Date Smoking Tobacco: Never Assessed Sex Assigned at Date Recorded Not on file documented as of this encounter Plan of Treatment Not on filedocumented as of this encounter Procedures Procedure Name Priority Date/Time Associated Diagnosis Comme [facility] X-RAY SPINE Routine 10/16/2009 4:09 PM Results for this ENTIRE SURVEY CDT procedure are in AP/LAT the results section. documented in this encounter Results X-RAY SPINE SURVEY (10/16/2009 4:09 PM CDT) Anatomical Region Laterality Modality Other Specimen (Source) Anatomical Collection Method Collection Time Re ceived Time Location / / Volume Laterality 10/16/2009 4:09 PM CDT Impressions 10/17/2009 8:22 AM CDT SPINE ENTIRE CERVICAL, THORACIC, LUMBAR AP AND LATERAL ??Oct 16, 2009 4:09 PM HISTORY: Status post T10-L3 posterior sp inal fusion. Evaluate alignment. COMPARISON: Study dated 10/12/2009. FINDINGS: The patient is status post pos terior instrumentation and fusion extending from T10 through L3. Th ere is approximately 19 degrees of scoliosis convex to the right between T9 and L3. Kev Rios MD GENERAL IMAGING documented in this encounter Visit Diagnoses Not on filedocumented in this encounter
--- OUTSIDE RECORDS SUMMARY | 2021-12-17 15:13 | XMS_ITS | Encounter Summary ---
:1980 Author Organization [place] Address [address] [facility] [place] [address] Care Team Providers Name Role Phone Unavailable Primary Care Provider Unavailable Encounter Details Date Type Department Care Team Description 10/16/2009 Historic Notes INTERFACED REPORT Kev Rios MD [facility] [address] [place], [place] [address] (Wo rk) Social History Tobacco Use Types Packs/Day Years Used Date Smoking Tobacco: Never Assessed Sex Assigned at Date Recorded Not on file documented as of this encounter Progress Notes Kev Rois MD - 04/30/2010 8:44 PM CDT Ortho Moderate pain overnight. Was well controlled yesterday during the day. Continues to express concerns about various positions and feels that her back is at risk. Did get up with PT. Required florez placement. Tolerating clears. No BM. AF, tachy 120s, bp stable. on RA. UO: adequate. A&O, NAD nonlabored breathing back: incision c/d/i. BLE: SILT L2-S1. 5/5 flex/ext hips/knees/toes/ankles. CR < 2 seconds A/P: POD #4 T10-L3 PSF - prn pain meds - encourage regular diet today - WBAT, up with PT - encourage IS - trial of void today - bowel meds. If no BM today, then enema. - appreciate Smileys input, will ask to readdress anxiety as this is a large component of pt's slow progress and is a factor in pain control - upright xrays today Kev Rios MD [phone] [Signature] Author: KEV RIOS) [Signed 07:56] documented in this encounter Plan of Treatment Not on filedocumented as of this encounter Visit Diagnoses Not on filedocumented in this encounter
--- OUTSIDE RECORDS SUMMARY | 2021-12-17 15:13 | XMS_ITS | Encounter Summary ---
:1980 Author Organization [place] Address [address] [facility] [place] [address] Care Team Providers Name Role Phone Unavailable Primary Care Provider Unavailable Encounter Details Date Type Department Care Team Description 10/14/2009 Historic Notes INTERFACED REPORT Radha Navarro MD Social History Tobacco Use Types Packs/Day Years Used Date Smoking Tobacco: Never Assessed Sex Assigned at Date Recorded Not on file documented as of this encounter Progress Notes Radha Navarro MD - 04/30/2010 8:52 PM CDT ATTENDING PHYSICIAN - Attending Patient has been seen and evaluated by me. Examination: Discussed with the team and agree with the findings and plan in this note. Interval History - Interval History: No overnight acute events. Per nursing notes was very anxious yesterday, not moving in bed secondary to her fear of breaking the vertebrae. Not taking her oral meds secondary to her nausea. Today pt says that her nausea is under control with the nausea meds, will take her oral meds. Complaining about back pain and says its 8/10 in intensity. Reports less haking of her hands. Review of Systems - Constitutional No fever Comments: - Musculoskeletal Back pain. Comments: - Respiratory Comments: No cough, no SOB, No wheezing. - CV Comments: No chest pain, no palpitaions. - GI Comments: Nausea present but no vomiting, has not had her bowel movement yet. - Neuro Comments: No tngling or numbness in her legs. - Psych Comments: Denies anxiety at this point. Physical Exam - General: Alert, not in distress. - Lungs: Clear to auscultaion, no wheezes, no crackles. - Cardiovascular: Tachycardia present, rhytm regular. - Abdominal/Rectal: Soft with positive bowel sounds. - Neuro: Able to move her lower legs, toes, ssensation intact in bilateral lower limbs. Vital Signs/Labs/Imaging/Culture Review - Vital Signs: Vital Signs reviewed past 24 hours. - Lab Results: All lab results reviewed past 24 hours. - Imaging Results: All imaging results reviewed past 24 hours. VS 1. Vital Signs Adult Med Surg Temperature degrees F(last 24 hours) 07:05 99.4 04:00 98.7 00:00 99.9 20:00 99.9 15:11 99 12:00 100.3 Heart Rate beats/min(last 24 hours) 07:05 128 00:00 121 20:00 124 15:11 128 12:00 134 BP Cuff Systolic BP mmHg(last 24 hours) 07:05 105 00:00 101 20:00 101 15:11 103 12:00 114 09:53 92 BP Cuff Diastolic BP mmHg(last 24 hours) 07:05 63 00:00 54 20:00 59 15:11 62 12:00 67 09:53 59 Resp, Pulse Ox Resp Rate(last 24 hours) 07:05 16 00:00 17 20:00 16 15:11 16 12:00 18 Assessment and Plan - Assessment/Plan: 29 yr old female with h/o acne vulgaris, vaginal yeast infection admitted under Orhto for Spinal fusion for her scoliosis. 1. Scoliosis s/p spinal fusion done on 10/12, today is day #3 : Managed by primary team. For her pain management she is on --Dilaudid 0.2- 0.4 mg q 1 hr IV and --OXycodone 5- 10 mg q 4 hrs PO. Continue with the same. 2. Anxiety: Currently stable. Did not require her PRN seroquel or PRN ativan in last 24 hrs. -- Discontinue Seroquel 25 mg PO q 8 hrs PRN for anxiety. -- Can give Ativan 0.5 to 1 mg if she gets anxious at night. --At this point pt refused to discuss with psycologist or therapist about her anxiety. --Will reassess pt on Monday. 3. Allergic rhinitis: Better, Continue home meds. 4.FEN/GI: Diet as tolerated. Zofran for nausea and vomiting. 5. Dispo: Depends on primary team. Signatures DENISHA OAKES)[Signed 14:16] Authored: ATTENDING PHYSICIAN RADHA NAVARRO)[Signed 11:12] Authored: Interval History, Review of Systems, Physical Exam, Vital Signs/Labs/Imaging/Culture Review, VS, Assessment and Plan documented in this encounter Plan of Treatment Not on filedocumented as of this encounter Visit Diagnoses Not on filedocumented in this encounter
--- OUTSIDE RECORDS SUMMARY | 2021-12-17 15:13 | XMS_ITS | Encounter Summary ---
:1980 Author Organization [place] Address [address] [facility] [place] [address] Care Team Providers Name Role Phone Unavailable Primary Care Provider Unavailable Encounter Details Date Type Department Care Team Description 10/13/2009 Historic Notes INTERFACED REPORT Kev Rios MD [facility] [address] [place], [place] [address] (Wo rk) Social History Tobacco Use Types Packs/Day Years Used Date Smoking Tobacco: Never Assessed Sex Assigned at Date Recorded Not on file documented as of this encounter Progress Notes Kev Rios MD - 04/30/2010 8:56 PM CDT Ortho Pain controlled overnight. Notes she was shivering. No CP/SOB. Not out of bed. No PO yet. Did have some anxiety and nausea, resolved this AM. AF, tachy 110's-150, bp 90s/50s. on RA. UO: 1550 last shift A&O, NAD nonlabored breathing BLE: SILT L2-S1. 5/5 flex/ext hips/knees/toes/ankles. CR < 2 seconds A/P: POD #1 T10-L3 PSF - prn pain meds, wean from COMPUTER [employer]QUIPMENT INST[employer] to PO today - ADAT - WBAT, up with PT - encourage IS - florez out when ambulatory - appreciate Smileys input - upright xrays in a couple days - anticipate home by the end of the week Kev Rios MD [phone] [Signature] Author: KEV RIOS) [Signed 06:46] documented in this encounter Plan of Treatment Not on filedocumented as of this encounter Visit Diagnoses Not on filedocumented in this encounter
--- OUTSIDE RECORDS SUMMARY | 2021-12-17 15:13 | XMS_ITS | Encounter Summary ---
:1980 Author Organization [place] Address [address] [facility] [place] [address] Care Team Providers Name Role Phone Unavailable Primary Care Provider Unavailable Encounter Details Date Type Department Care Team Description 10/18/2009 Historic Notes INTERFACED REPORT Kev Rios MD [facility] [address] [place], [place] [address] (Wo rk) Social History Tobacco Use Types Packs/Day Years Used Date Smoking Tobacco: Never Assessed Sex Assigned at Date Recorded Not on file documented as of this encounter Progress Notes Kev Rios MD - 04/30/2010 8:37 PM CDT Ortho Pain controlled. Out of bed and mobilizing well. Has had frequent BM's overnight. No further nausea. AF, tachy 110s, bp stable. on RA. UO: adequate. A&O, NAD nonlabored breathing back: incision c/d/i. BLE: SILT L2-S1. 5/5 flex/ext hips/knees/toes/ankles. CR < 2 seconds A/P: POD #6 T10-L3 PSF - prn pain meds - d/c NG tube - encourage regular diet today - WBAT, up with PT - encourage IS - bowel meds - appreciate Smileys input - anxiety, seen by psychologist, Gilsonoft started, prn ativan - upright xrays reviewed - Cipro for UTI, f/u cx. Appreciate urology input. Will teach SIC today - d/c next couple of days Kev Rios MD [phone] [Signature] Author: KEV RIOS) [Signed 08:11] documented in this encounter Plan of Treatment Not on filedocumented as of this encounter Visit Diagnoses Not on filedocumented in this encounter
--- OUTSIDE RECORDS SUMMARY | 2021-12-17 15:13 | XMS_ITS | Encounter Summary ---
:1980 Author Organization [place] Address [address] [facility] [place] [address] Care Team Providers Name Role Phone Unavailable Primary Care Provider Unavailable Encounter Details Date Type Department Care Team Description 10/19/2009 Historic Notes INTERFACED REPORT Radha Navarro MD Social History Tobacco Use Types Packs/Day Years Used Date Smoking Tobacco: Never Assessed Sex Assigned at Date Recorded Not on file documented as of this encounter Progress Notes Radha Navarro MD - 04/30/2010 8:35 PM CDT ATTENDING PHYSICIAN - Attending Patient has been seen and evaluated by me. Examination: Discussed with the team and agree with the findings and plan in this note. Mary Codes - Daily Hospital Codes [address] Interval History - Interval History: No overnight acute events. Feeling nauseos but want to eat her breakfast as well. Able to urinate without any concerns. Review of Systems - Constitutional: Negative - Musculoskeletal Back pain. Comments: - Respiratory: Negative - Cardiovascular: Negative - GI Comments: Nausea, no vomiting Physical Exam - General: Alert, able to walk with minimal pain. - Lungs: Clear to auscultaion, no wheezes, no crackles. - Cardiovascular: Tachycardia with normal rhythm. Vital Signs/Labs/Imaging/Culture Review - Vital Signs: Vital Signs reviewed past 24 hours. - Lab Results: All lab results reviewed past 24 hours. - Imaging Results: All imaging results reviewed past 24 hours. VS 1. Vital Signs Adult Med Surg Temperature degrees F(last 24 hours) 08:00 99.1 03:07 96.8 20:52 98.2 15:28 98.4 Heart Rate beats/min(last 24 hours) 08:00 93 03:07 97 20:52 94 15:28 103 BP Cuff Systolic BP mmHg(last 24 hours) 08:00 97 03:07 112 20:52 91 15:28 107 BP Cuff Diastolic BP mmHg(last 24 hours) 08:00 60 03:07 66 20:52 94 15:28 71 Resp, Pulse Ox Resp Rate(last 24 hours) 08:00 16 03:07 16 20:52 18 15:28 18 Assessment and Plan - Assessment/Plan: 29 yr old female with h/o acne vulgaris, vaginal yeast infection admitted under [facility] for Spinal fusion for her scoliosis. 1. Scoliosis s/p spinal fusion done on 10/12, today is day #8: Managed by primary team. Discharged today by primary team. 2. Anxiety:Pt is better today Pt feels nauseous, tingling in her hands . --Continue with her Ativan 0.25 mg PO as needed for anxiety. -- continue clonazepam and zoloft. Will discharge her in clonapin and zoloft. -- Also wrote for lorazepam if unable to take po. -- Appreciate Psychology consult . 3. UTI and urinary retention: Resolved. Pt had Florez's post op, after taking it out developed retention, was put on Flomax . Developed UTI. Seen by Urologist. Please see the note by Urology for more details. -- Urine culture positive for more than 100, 000 colonies of E coli susceptible for Cipro. Continue with Cipro for complete 5 days. Today is Day # 4/5. Discharge with 3 more doses. -- florez is d/janett. 4. Tachycardia: Pt has tachycardia since admission. Upon asking she states that she was always told that her heart rate is fast when she is in Doctor's office. Pt looks well hydrated with adequet u/o and stable BP. Less likely dehydration. HR is high when she is stable and not anxious. - TSH done was normal. --Follow up in clinic. 5. Tingling in rigt hand: Had since long time but increased after surgery. Could be anxiety related. Will follow up as an outpt for this concern. 6. Allergic rhinitis: Better, Continue home meds. 7.FEN/GI: Diet as tolerated. 6. Dispo: Discharged to home today. Follow up at [facility] in 7 -10 days. Signatures RADHA NAVARRO)[Signed 09:16] Authored: Interval History, Review of Systems, Physical Exam, Vital Signs/Labs/Imaging/Culture Review, VS, Assessment and Plan SHRAYN SALEEM)[Signed 11:28] Authored: ATTENDING PHYSICIAN, Mary Codes documented in this encounter Plan of Treatment Not on filedocumented as of this encounter Visit Diagnoses Not on filedocumented in this encounter
--- OUTSIDE RECORDS SUMMARY | 2021-12-17 15:13 | XMS_ITS | Encounter Summary ---
:1980 Author Organization [place] Address [address] [place] [address] Care Team Providers Name Role Phone Unavailable Primary Care Provider Unavailable Encounter Details Date Type Department Care Team Description 10/18/2009 Consultation [facility] Carlitos Weathers, [facility] Results [facility] [address] [place] [address] (Wo rk) Social History Tobacco Use Types Packs/Day Years Used Date Smoking Tobacco: Never Assessed Sex Assigned at Date Recorded Not on file documented as of this encounter Progress Notes Carlitos Weathers - 10/19/2009 9:42 PM CDT FINAL BACKGROUND INFORMATION: Azul Dinh was referred for health psychology consult due to anxiety, and she was referred by her physician and Dr. Bebeto Roth. Azul was seen at approximately 11:30 in the morning on 10/18/2009. She was initially sitting in a chair upright and talking with her nurse.She then moved to her bed to lie down. She reported that she had surgery at 10/12/2009 due to havingscoliosis. She reported that her back was rather hunched over and was getting worse. She reported that she thought she would be gone by now, but had a bladder infection as well as a bowel obstruction. She reported that she believes she does have anxiety and she always gets worried about health issues, having MS or tumors. Anytime she gets sick, she gets overly anxious. She also reported that she has noticed more shaking in her hands, especially when trying to go to bed. She stated that she has noticed this before or prior to the surgery. She stated that she has 2 boys ages 10 and 4, and she currently lives with her mother and her 2 sons in an apartment in [place]. Her parents are . Shereported that the sons' father is in penitentiary at this time. She reported that she had to move in with her mother a while back when both her and her mother had lost their jobs. 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 She has never been on medication for anxiety and has never been in therapy. She reported that she overdosed on pain medication by accident, or Tylenol, when she was about 21 or 22 years old.She thought she was having cramps and misread the bottle and took about 3000 mg, she estimates, of Tylenol. She reports that this was not a suicide attempt but then ended up realizing that she was having a miscarriage at the time. Azul reported she does often feel anxious. She has lots of worry thoughts, especially about her health. Only significant health problems in the past have been back pain and concerns with her ears andthroat. She reports that she gets easily fatigued. She does have some trouble sleeping. She reports a lot of shaking when she is trying to sleep, as well as having trouble when she is home alone. She also reports being more irritable. She stated that she does have some numbness in her toes, which has been going on for a while, and she has she has noticed tingling into her fingers post surgery. She always worries about the worst happening when she is sick. She has such thoughts as now I have the Swine flu. She reports that she has equilibrium problems but believes this is due to allergies. She believes she has had panic attacks in the past, but it has been quite awhile. She reports being scared at night. She worries about her health getting worse. She never has some problems breathing. She reportsshe has a fear of dying when something is wrong with her. Again, she is scared when she is alone, and she reports at times having heartburn or abdominal pain. MENTAL STATUS: Azul is a 29-year-old female. She was seen while in the hospital postsurgery to straighten her scoliosis in her spine. She was cooperative and friendly. She seems to have a flat affectand be somewhat a little pain and rather comfortable. During my meeting with Azul, she was constantly moving around in her bed, changing positions as well as lowering and raising her bed, probably every few minutes. She did seem to have some anxiety and had lots of worry thoughts about her health andespecially about having MS, which her doctor has told her that she most likely does not have. Judgment seem to be somewhat impaired. TREATMENT SUGGESTIONS: Spoke with Azul about basic CBT methods, such as thought stopping and becoming more aware of her thoughts and feelings, especially her feelings that are causing her to become more anxious, talked about several examples that happened within the last several weeks to months thathakeem often thinks and then the feelings that she has. Also demonstrated some deep breathing exercisesfor Azul, and also talked to her about using different distraction techniques when she is feeling anxious or having trouble falling asleep. Azul given the MCMI-III ([place] Clinical Multiaxial Inventory III) to complete. When she is finished with it, it can be faxed to our office at [facility] (fax [phone]), and it will be scored and gone over with her at the next meeting if she is still in the hospital. Azul was also given this interviewer's card, and she may see this provider or another provider in outpatient if she is willing to follow up. RECOMMENDATIONS: 1. Azul should practice the CBT techniques that were taught as well as deep breathing and distraction techniques. 2. It may be beneficial for Azul to follow up in an outpatient therapy once discharged to reduce symptoms of anxiety as well as some possible underlying depression that may be happening. DSM-IV DIAGNOSES: [place] I: 300.00, Anxiety disorder, not otherwise specified. [place] II: Deferred. [place] III: Deferred to physician. [place] IV: Moderate to severe. [place] V: 30-35. Electronically signed on 10/19/2009 21:41 by CARLITOS WEATHERS, PHD As dictated by ADELINA HULL PSYD MT: THAO Name: ZAUL DINH MRN: [id number] Account: [id number] : 1980 Consult Date: 10/18/2009 Document: [id number] cc: Bebeto Roth Jr, MD documented in this encounter Plan of Treatment Not on filedocumented as of this encounter Visit Diagnoses Not on filedocumented in this encounter
--- OUTSIDE RECORDS SUMMARY | 2021-12-17 15:13 | XMS_ITS | Encounter Summary ---
:1980 Author Organization [place] Address [facility] [place] [address] Care Team Providers Name Role Phone Unavailable Primary Care Provider Unavailable Encounter Details Date Type Department Care Team Description 10/18/2009 Historic Results INTERFACED REPORT Kev Rios MD [facility] [address] [place], [place] [address] (Wo rk) Social History Tobacco Use Types Packs/Day Years Used Date Smoking Tobacco: Never Assessed Sex Assigned at Date Recorded Not on file documented as of this encounter Plan of Treatment Not on filedocumented as of this encounter Procedures Procedure Name Priority Date/Time Associated Comments Diagnosis CLOSTRIDIUM DIFFICILE Routine 10/18/2009 5:44 PM Results for this TOXIN B CDT procedure are i n the results section. C DIFFICILE CULTURE Routine 10/18/2009 5:44 PM Re sults for this CDT procedure are i n the results section. TSH WITH FREE T4 Timed 10/18/2009 9:49 AM Resul ts for this REFLEX CDT procedure are i n the results section. documented in this encounter Results C difficile culture (10/18/2009 5:44 PM CDT) [facility] gist Method Time Signature Specimen Feces MISYS Descrip C Difficile No Clostridium MISYS Culture difficile isolated Specimen Anatomical Collection Method Collection Time Receive d Time (Source) Location / / Volume Laterality 10/18/2009 5:44 PM 0 1:23 CDT PM CDT Kev Rios MD LAB - MICRO GENERAL ORDERABL ES Performing Organization Address City/State/ZIP Code Phon e Number MISYS Clostridium difficile toxin B (10/18/2009 5:44 PM CDT) Patholo gist Method Time Signature Specimen Feces MISYS Description C Diff Toxin B Negative: MISYS PCR Clostridium difficile target DNA sequences NOT detected, presumed Comment: negative for Clostridium difficile toxi n B or the number of bacteria present may be below the limit of detection for the test. FDA approved assay performed using [employer] mi[employer] GeneXpert real-time PCR. A negative result does not exclude actu al disease due to Clostridium difficile and may be due to improper collection, handling and storage of the specimen or the number of organisms in the specimen is below the detection limit of the assay. Specimen Anatomical Collection Method Collection Time Receive d Time (Source) Location / / Volume Laterality 10/18/2009 5:44 PM 0 9:33 CDT PM CDT Kev Rios MD LAB - MICRO GENERAL ORDERABL ES Performing Organization Address City/State/ZIP Code Phon e Number MISYS TSH with free T4 reflex (10/18/2009 9:49 AM CDT) P athologist Signature TSH 0.91 0.4 - 5.0 MISYS mU/L Specimen Anatomical Collection Method Collection Time Receive d Time (Source) Location / / Volume Laterality 10/18/2009 9:49 AM 0 CDT 10:00 AM CDT Radha Navarro MD LAB - BLOOD ORDERABLES Performing Organization Address City/State/ZIP Code Phon e Number MISYS documented in this encounter Visit Diagnoses Not on filedocumented in this encounter
--- OUTSIDE RECORDS SUMMARY | 2021-12-17 15:13 | XMS_ITS | Encounter Summary ---
:1980 Author Organization [place] Address [facility] [place] [address] Care Team Providers Name Role Phone Unavailable Primary Care Provider Unavailable Encounter Details Date Type Department Care Team Description 10/19/2009 Discharge Summary [facility] Myles De Oliveira (Resident Intern) [facility] MD Devan Results [address] [place], [place] [address] Social History Tobacco Use Types Packs/Day Years Used Date Smoking Tobacco: Never Assessed Sex Assigned at Date Recorded Not on file documented as of this encounter Progress Notes Myles De Oliveira - 10/29/2009 8:01 AM CDT FINAL ADMISSION DIAGNOSIS: Adult idiopathic scoliosis. PROCEDURES PERFORMED DURING HOSPITALIZATION: Posterior spinal fusion T10-L3 with segmental spinal instrumentation T10-L3. CONSULTATIONS: Urology, Family Medicine and Physical Therapy. 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 This curve continued to progress and became more symptomatic for her. After extensive discussion about the treatment options including the risks and benefits of surgery, the patient agreed to proceed. She was taken to the operating room where she underwent a T10-L3 fusion.Please see the operative dictation for details. Postoperatively, she was admitted to the regular surgical floor. Her primary care group from [facility] was asked to follow the patient as well given her history of anxiety. 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 She had some early tachycardia and this is felt in large part to be related to both pain and anxiety. Her Pennington catheter was removed on postoperative day #2 and she developed urinary retention and after multiple straight catheterizations, she had a Pennington replaced. This was removed again on postoperative day #3 and she continued to have retention. After 1 additional trial of void failed, a UA was obtained which grew out E. coli. This was sensitive to ciprofloxacin and she was started on Cipro. Urology was consulted given her recurrent urinary retention in the setting of urinary tract infection. They recommended continuing the Cipro for 5 days and suggested possible clean intermittent catheterization versus leaving the Pennington in. By postoperative day #5, however, she was able to void on her own and did not require any further catheterizations. In the meantime, she was transitioned over to oral pain medications. She had a poor appetite for several days and her abdomen became somewhat distended. She had frequent episodes of nausea and vomiting. An NG tube was therefore placed. This was kept in place for 1 day and did not have significant output. She started to have flatusand bowel movements on her own. The NG tube was therefore discontinued. She began to tolerate a regular diet. Her tachycardia eventually resolved. She was mobilized very well with physical therapy. Heranxiety continued to be managed by the primary care group and they had Zoloft started in addition toKlonopin and p.r.n. Ativan. By postoperative day #7, she was quite comfortable. She was neurovascularly intact in her bilateral lower extremities. Her incision was clean, dry without any surrounding erythema or drainage. At this point, it was felt that she would be stable for discharge to home. She was voiding, having bowel movements on her own. Her pain was well controlled and she was otherwise feltto be stable. DISCHARGE INSTRUCTIONS: The patient was instructed to not do any lifting greater than 10 pounds andnot do any repetitive bending or twisting. She will otherwise progress with her ambulation for further distances each day. She will monitor her incision for any increasing erythema or drainage and willcall if she has uncontrolled pain or fevers. She will monitor for any further signs of urinary retention and return to the hospital should this recur. She will follow up with her primary care physicianwithin 2 weeks. She will follow up with Dr. De Oliveira in 6 weeks. At that time, she will have 2 views ofthe thoracolumbar spine. DISCHARGE MEDICATIONS: 1. Klonopin, dispensed #30. 2. Fexofenadine. 3. Flonase. 4. Ativan, dispensed #30. 5. Multivitamin. 6. Senokot. 7. Zoloft, dispensed #30. 8. Oxycodone, dispensed #70. 9. Cipro, dispensed #3. 10. Tylenol. 11. Calcium and vitamin D. 12. OxyContin, dispensed #28. Electronically signed on 10/29/2009 08:00 by MYLES DE OLIVEIRA JR, MD As dictated by BHUPENDRA SKAGGS MD MT: DARLEEN Name: AZUL DINH Account: [id number] : 1980 Admit Date: [id number] Discharge Date: 10/19/2009 Document: [id number] cc: [facility] documented in this encounter Plan of Treatment Not on filedocumented as of this encounter Visit Diagnoses Not on filedocumented in this encounter
--- OUTSIDE RECORDS SUMMARY | 2021-12-17 15:13 | XMS_ITS | Encounter Summary ---
:1980 Author Organization [place] Address [address] [facility] [place] [address] Care Team Providers Name Role Phone Unavailable Primary Care Provider Unavailable Encounter Details Date Type Department Care Team Description 10/16/2009 Historic Notes INTERFACED REPORT Radha Navarro MD Social History Tobacco Use Types Packs/Day Years Used Date Smoking Tobacco: Never Assessed Sex Assigned at Date Recorded Not on file documented as of this encounter Progress Notes Radha Navarro MD - 04/30/2010 8:44 PM CDT ATTENDING PHYSICIAN - Consulting Service: We are continuing to follow and manage the patient at the request of the attending. - Attending Patient has been seen and evaluated by me. Examination: Discussed with the team and agree with the findings and plan in this note. - Review of findings: I have reviewed today's vital signs, medications, labs and imaging results. Interval History - Interval History: No acute events overnight. Has pain in her back when she moves. Pain meds are helping with the pain but concerned about taking too many pain meds. Has tingling and numbness in her hands. Review of Systems - Constitutional No fever, no night sweats. Comments: - Musculoskeletal Pain in back. Comments: - Respiratory Comments: No cough, no SOB - CV Comments: No cheat pain, no palpitaions. - GI Comments: Had loose stool yesterday. - Comments: Unable to pee after her catheter is out. Allergies ?? Other Environment Allergy (See Description);Other Physical Exam - General: Alert, not in distress. - Lungs: Clear to auscultaion, no wheezes, no crackles. - Cardiovascular: Tachycardic with regular rhythm. - Abdominal/Rectal: Positive bowel sounds. - Additional Findings: Psych: Pressured speech, trying to avoid to talk about her anxiety. Jumps to other subject and avoids further discussion. Vital Signs/Labs/Imaging/Culture Review - Vital Signs: Vital Signs reviewed past 24 hours. - Lab Results: All lab results reviewed past 24 hours. VS 1. Vital Signs Adult Med Surg Temperature degrees F(last 24 hours) 07:27 99.1 23:46 99.6 20:00 98.8 16:00 98.8 12:00 97.8 Heart Rate beats/min(last 24 hours) 07:27 103 23:46 122 20:00 113 16:00 97 12:00 104 BP Cuff Systolic BP mmHg(last 24 hours) 07:27 105 23:46 111 20:00 110 16:00 97 14:04 95 14:03 101 12:00 111 BP Cuff Diastolic BP mmHg(last 24 hours) 07:27 59 23:46 68 20:00 67 16:00 47 14:04 60 14:03 76 12:00 63 Assessment and Plan - Assessment/Plan: 29 yr old female with h/o acne vulgaris, vaginal yeast infection admitted under [facility] for Spinal fusion for her scoliosis. 1. Scoliosis s/p spinal fusion done on 10/12, today is day #5 : Managed by primary team. For her pain management she is on --Dilaudid 0.2- 0.4 mg q 1 hr IV and --OXycodone PO. Continue with the same. 2. Anxiety: Pt feels nauseous, tingling in her hands . She required one dose of her Ativan yesterday night. Today she would like to talk with the psycotherapist. --Will consult Psychologist for her anxiety. --Continue with her Ativan 0.25 mg PO as needed for anxiety. will also add clonazepam and zoloft. 3. Allergic rhinitis: Better, Continue home meds. 4.FEN/GI: Diet as tolerated. Zofran for nausea and vomiting. 5. Dispo: Depends on primary team. 6. Diffculty voiding -will add flomax daily to assist in bladder shincter relaxation. Signatures DENISHA OAKES)[Signed 14:07] Authored: ATTENDING PHYSICIAN, Allergies, Assessment and Plan RADHA NAVARRO)[Signed 10:05] Authored: Interval History, Review of Systems, Physical Exam, Vital Signs/Labs/Imaging/Culture Review, VS, Assessment and Plan documented in this encounter Plan of Treatment Not on filedocumented as of this encounter Visit Diagnoses Not on filedocumented in this encounter
--- OUTSIDE RECORDS SUMMARY | 2021-12-17 15:13 | XMS_ITS | Encounter Summary ---
:1980 Author Organization [place] Address [address] [place] [address] Care Team Providers Name Role Phone Unavailable Primary Care Provider Unavailable Encounter Details Date Type Department Care Team Description 10/19/2009 Historic Results INTERFACED REPORT Kev Rios MD [facility] [address] [place], [place] [address] (Wo rk) Social History Tobacco Use Types Packs/Day Years Used Date Smoking Tobacco: Never Assessed Sex Assigned at Date Recorded Not on file documented as of this encounter Plan of Treatment Not on filedocumented as of this encounter Procedures Procedure Name Priority Date/Time Associated Diagnosis Comme nts BASIC METABOLIC Routine 10/19/2009 6:18 AM Result s for this PANEL CDT procedure are i n the results section. documented in this encounter Results (ABNORMAL) Basic metabolic panel (10/19/2009 6:18 AM CDT) P athologist Signature Sodium 137 133 - 144 MISYS mmol/L Potassium 3.5 3.4 - 5.3 MISYS mmol/L Chloride 102 94 - 109 MISYS mmol/L Carbon Dioxide 31 20 - 32 MISYS mmol/L Glucose 107 (H) 60 - 99 MISYS mg/dL Urea Nitrogen 5 5 - 24 MISYS mg/dL Creatinine 0.80 0.52 - MISYS 1.04 mg/dL Comment: New IDMS-traceable calibration beginning 06/14/07 GFR Estimate 86 >60 mL/min/1.7m2 MISYS GFR Estimate If Black >90 >60 mL/min/1.7m2 M ISYS Calcium 8.3 (L) 8.5 - 10.4 mg/dL MISYS Anion Gap 4.2 (L) 6 - 17 mmol/L MISYS Specimen Anatomical Collection Method Collection Time Receive d Time (Source) Location / / Volume Laterality 10/19/2009 6:18 AM 0 1:23 CDT PM CDT Kev Rios MD LAB - BLOOD ORDERABLES Performing Organization Address City/State/ZIP Code Phon e Number MISYS documented in this encounter Visit Diagnoses Not on filedocumented in this encounter
--- OUTSIDE RECORDS SUMMARY | 2021-12-17 15:13 | XMS_ITS | Encounter Summary ---
:1980 Author Organization [place] Address [address] [facility] [place] [address] Care Team Providers Name Role Phone Unavailable Primary Care Provider Unavailable Encounter Details Date Type Department Care Team Description 10/15/2009 Historic Notes INTERFACED REPORT Kev Rios MD [facility] [address] [place], [place] [address] (Wo rk) Social History Tobacco Use Types Packs/Day Years Used Date Smoking Tobacco: Never Assessed Sex Assigned at Date Recorded Not on file documented as of this encounter Progress Notes Kev Rios MD - 04/30/2010 8:48 PM CDT Ortho Moderate pain, did require some IV dilaudid. Notes that her bp dropped when getting up with PT. Did walk in hallway. Doretha some clears. +flatus. Did have straight cath, florez removed this AM. AF, tachy 120s, bp stable. on RA. UO: adequate. Drain: 450 yest, 70/40 last two shifts. A&O, NAD nonlabored breathing back: incision c/d/i. some minimal drainage around drain site. BLE: SILT L2-S1. 5/5 flex/ext hips/knees/toes/ankles. CR < 2 seconds A/P: POD #3 T10-L3 PSF - prn pain meds - ADAT - continue drain for now until < 30cc's/shift - WBAT, up with PT - encourage IS - trial of void this AM - appreciate Smileys input - upright xrays today - anticipate home by the end of the week or weekend Kev Rios MD [phone] [Signature] Author: KEV RIOS) [Signed 06:51] documented in this encounter Plan of Treatment Not on filedocumented as of this encounter Visit Diagnoses Not on filedocumented in this encounter
--- OUTSIDE RECORDS SUMMARY | 2021-12-17 15:13 | XMS_ITS | Encounter Summary ---
:1980 Author Organization [place] Address [address] [facility] [place] [address] Care Team Providers Name Role Phone Unavailable Primary Care Provider Unavailable Encounter Details Date Type Department Care Team Description 10/17/2009 Historic Notes INTERFACED REPORT Kev Rios MD [facility] [address] [place], [place] [address] (Wo rk) Social History Tobacco Use Types Packs/Day Years Used Date Smoking Tobacco: Never Assessed Sex Assigned at Date Recorded Not on file documented as of this encounter Progress Notes Kev Rios MD - 04/30/2010 8:40 PM CDT Ortho Pain controlled. Out of bed and mobilizing well. Nauseated, poor appetite. Liquid BM. Had florez replaced for retention and abx started for UTI. Tm 99.6, tachy 110s, bp stable. on RA. UO: adequate. A&O, NAD nonlabored breathing back: incision c/d/i. BLE: SILT L2-S1. 5/5 flex/ext hips/knees/toes/ankles. CR < 2 seconds A/P: POD #5 T10-L3 PSF - prn pain meds - encourage regular diet today - WBAT, up with PT - encourage IS - bowel meds. Enema today. This will hopefully help with nausea and encourage regular diet. - appreciate Jr input - anxiety, seen by psychologist, Zoloft started, prn ativan - upright xrays reviewed - Cipro for UTI, f/u cx. Will do trial of void again tomorrow - d/c next couple of days Kev Rios MD [phone] [Signature] Author: KEV RIOS () [Signed 07:33] documented in this encounter Plan of Treatment Not on filedocumented as of this encounter Visit Diagnoses Not on filedocumented in this encounter
--- OUTSIDE RECORDS SUMMARY | 2021-12-17 15:13 | XMS_ITS | Encounter Summary ---
:1980 Author Organization [place] Address [address] [facility] [place] [address] Care Team Providers Name Role Phone Unavailable Primary Care Provider Unavailable Encounter Details Date Type Department Care Team Description 10/16/2009 Historic Results INTERFACED REPORT Kev Rios MD [facility] [address] [place], [place] [address] (Wo rk) Social History Tobacco Use Types Packs/Day Years Used Date Smoking Tobacco: Never Assessed Sex Assigned at Date Recorded Not on file documented as of this encounter Plan of Treatment Not on filedocumented as of this encounter Procedures Procedure Name Priority Date/Time Associated Comments Diagnosis ROUTINE UA WITH Routine 10/16/2009 5:00 PM Result s for this MICROSCOPIC CDT procedure are i n the results section. URINE CULTURE Routine 10/16/2009 5:00 PM Results for this CDT procedure are i n the results section. HEMOGLOBIN Routine 10/16/2009 6:27 AM Results f or this CDT procedure are i n the results section. documented in this encounter Results (ABNORMAL) Routine UA with microscopic (10/16/2009 5:00 PM CDT) Component Value Ref Test Analysis Performed At [facility] Range Method Time Signature Source Catheterized MISYS Urine Color Urine Yellow MISYS Appearance Urine Slightly Cloudy MISYS Glucose Urine Negative NEG MISYS mg/dL Bilirubin Urine Negative NEG MISYS Ketones Urine 5 (A) NEG MISYS mg/dL Specific [place] 1.007 1.003 - MISYS Urine 1.035 Blood Urine Moderate (A) NEG MISYS pH Urine 5.5 5.0 - MISYS 7.0 pH Protein Albumin Negative NEG MISYS Urine mg/dL Urobilinogen Normal 0.0 - MISYS mg/dL 2.0 mg/dL Nitrite Urine Positive (A) NEG MISYS Leukocyte Large (A) NEG MISYS Esterase Urine WBC Urine 77 (H) 0 - 2 MISYS /HPF RBC Urine 18 (H) 0 - 2 MISYS /HPF Squamous <1 0 - 1 MISYS Epithelial /HPF /HPF Urine Bacteria Urine Many (A) NEG /HPF MISYS WBC Clumps Present (A) NEG /HPF MISYS Mucous Urine Present (A) NEG /LPF MISYS Specimen Anatomical Collection Method Collection Time Receive d Time (Source) Location / / Volume Laterality 10/16/2009 5:00 PM 0 6:56 CDT PM CDT Kev Rios MD LAB - URINE ORDERABLES Performing Organization Address City/State/ZIP Code Phon e Number MISYS Urine culture (10/16/2009 5:00 PM CDT) Component Value Ref Test Analysis Performed At [facility] gist Range Method Time Signature Specimen Catheterized MISYS Description Urine Culture Micro >100,000 MISYS colonies/mL Escherichia coli Micro Report FINAL 10/18/2009 MISYS Status Specimen Anatomical Collection Method Collection Time Receive d Time (Source) Location / / Volume Laterality 10/16/2009 5:00 PM 0 6:56 CDT PM CDT Organism Antibiotic Method Susceptibility >100,000 colonies/ml Ampicillin >=32 Resist ant escherichia coli (almaz) >100,000 colonies/ml AMPICILLIN/SUBLACTAM 8 Susc eptible escherichia coli (almaz) >100,000 colonies/ml Ceftriaxone <=1 Suscept ible escherichia coli (almaz) >100,000 colonies/ml Cefoxitin <=4 Suscept ible escherichia coli (almaz) >100,000 colonies/ml Cefazolin <=4 Suscept ible escherichia coli (almaz) >100,000 colonies/ml Ciprofloxacin <=0.25 Susc eptible escherichia coli (almaz) >100,000 colonies/ml Nitrofurantoin 64 Intermed iate escherichia coli (almaz) >100,000 colonies/ml Gentamicin >=16 Resist ant escherichia coli (almaz) >100,000 colonies/ml Levofloxacin <=0.12 Susc eptible escherichia coli (almaz) >100,000 colonies/ml Piperacillin/Tazo <=4 Susce ptible escherichia coli (almaz) >100,000 colonies/ml Trimethoprim/Sulfamethoxazole >=16/304 Resistant escherichia coli (almaz) >100,000 colonies/ml Tobramycin 2 Susceptib le escherichia coli (almaz) Kev Rios MD LAB - MICRO GENERAL ORDERABL ES Performing Organization Address City/State/ZIP Code Phon e Number MISYS (ABNORMAL) Hemoglobin (10/16/2009 6:27 AM CDT) P athologist Signature Hemoglobin 9.5 (L) 11.7 - 15.7 MISYS g/dL Specimen Anatomical Collection Method Collection Time Receive d Time (Source) Location / / Volume Laterality 10/16/2009 6:27 AM 0 6:27 CDT AM CDT Kev Rios MD LAB - BLOOD ORDERABLES Performing Organization Address City/State/ZIP Code Phon e Number MISYS documented in this encounter Visit Diagnoses Not on filedocumented in this encounter
--- OUTSIDE RECORDS SUMMARY | 2021-12-17 15:13 | XMS_ITS | Encounter Summary ---
:1980 Author Organization [place] Address [address] [facility] [place] [address] Care Team Providers Name Role Phone Unavailable Primary Care Provider Unavailable Encounter Details Date Type Department Care Team Description 10/19/2009 Historic Notes INTERFACED REPORT Interface, Transcript on, Social History Tobacco Use Types Packs/Day Years Used Date Smoking Tobacco: Never Assessed Sex Assigned at Date Recorded Not on file documented as of this encounter Progress Notes Interface, Radiocommunications Technician - 04/30/2010 8:35 PM CDT Discharge Summary - Reason for Discharge All goals and outcomes met, no further needs identified - Progress toward Goals met achieving short term goals/intermediate goals - Comments OT: goals met, training completed, equipment issued. no OT follow up recommended. patient to have assist from family as needed. - Continued Therapy No Recommended Signatures Laureen Casas (OT)[Signed 08:38] Authored: Discharge Summary Interface, Radiocommunications Technician - 04/30/2010 8:33 PM CDT Discharge Summary - Reason for Discharge All goals and outcomes met, no further needs identified - Progress toward Goals met achieving short term goals/intermediate goals - Comments PT: By Oct 20, 2009, the patient will: 1. Demonstrate proper body mechanics and posture with all activity in order to promote proper healing and safety during all functional mobility tasks. 2. Demonstrate all bed mobility tasks independently without use of rails to allow safe negotiation of bedroom environment. Met 10/14/09, occasional cues for log roll. 3. Transfer independently from bed and chair to allow for safe negotiation of living environment. 4. Ambulate at least 100 independently using and AD as needed to decrease risk for falls during gait in the home environment. 5. Pt. will negotiate 5-10 stairs independently with rail as needed to allow for safe access into living environment. Freq: BID 10/17/09- Goals initially set for this date, pt has had decreased tolerance for PT due to nausea. Goals updated and remaining goals set for 10/20/09. All goals met by 10/19/09 - Continued Therapy No Recommended Signatures YAZAN VAZQUEZ (PT)[Signed 16:52] Authored: Discharge Summary documented in this encounter Plan of Treatment Not on filedocumented as of this encounter Visit Diagnoses Not on filedocumented in this encounter
--- OUTSIDE RECORDS SUMMARY | 2021-12-17 15:13 | XMS_ITS | Encounter Summary ---
:1980 Author Organization [place] Address [facility] [place] [address] Care Team Providers Name Role Phone Unavailable Primary Care Provider Unavailable Encounter Details Date Type Department Care Team Description 10/17/2009 Results Only [facility] Poll mirza, Bebeto Hartman MD Radiology Results [address] [place], [place] [address] (Wo rk) Social History Tobacco Use Types Packs/Day Years Used Date Smoking Tobacco: Never Assessed Sex Assigned at Date Recorded Not on file documented as of this encounter Plan of Treatment Not on filedocumented as of this encounter Procedures Procedure Name Priority Date/Time Associated Diagnosis Comme nts X-RAY ABDOMEN AP Routine 10/17/2009 2:26 PM Re sults for this VIEW (KUB) CDT procedure are i n the results section. documented in this encounter Results X-RAY ABDOMEN 1 VW (10/17/2009 2:26 PM CDT) Anatomical Region Laterality Modality Other Specimen (Source) Anatomical Collection Method Collection Time Re ceived Time Location / / Volume Laterality 10/17/2009 2:26 PM CDT Impressions 10/17/2009 3:52 PM CDT ABDOMEN ONE VIEW PORTABLE ??Oct 17, 2009 2:26 PM HISTORY: Spinal fusion, assess NG placem ent. COMPARISON: None. FINDINGS: A nasogastric tube is present with its distal end coiled in the fundus of the stomach. The tip of th e tube is near the gastroesophageal junction. Bowel gas pat tern in the upper abdomen is nonspecific with some scattered small michael wel gas on the left side. This may be related to placement of a nasogas tric tube alone. Status post extensive hardware fusion of the thoraco lumbar spine from T10 through L3. Chest is also included on this study and shows minimal infiltrate/atelectasis in the retrocardi ac region. Bebeto Roth MD GENERAL IMAGING documented in this encounter Visit Diagnoses Not on filedocumented in this encounter
--- OUTSIDE RECORDS SUMMARY | 2021-12-17 15:14 | XMS_ITS | Encounter Summary ---
:1980 Author Organization [place] Address [address] [facility] [place] [address] Care Team Providers Name Role Phone Unavailable Primary Care Provider Unavailable Encounter Details Date Type Department Care Team Description 06/24/2009 Office Visit-[facility] INTERFACE [facility] DEPT Provider, [facility] Nurs e Social History Tobacco Use Types Packs/Day Years Used Date Smoking Tobacco: Never Assessed Sex Assigned at Date Recorded Not on file documented as of this encounter Progress Notes Provider, [facility] Nurse - 06/24/2009 8:00 AM CDT Teacher Adventure Education: Nasrin Demarco Status: Final Encounter: 24 Jun 2009 Type: Teaching Flowsheet Teaching Flowsheet Relevant Diagnosis: SCOLIOSIS Teaching Topic:FULL SPINE MRI (C2-S1) PREOP; SURGERY: PSF T10-L3, [place] MOSS OSTEOTOMIES T10-L3 Person(s) involved in teaching: Patient Motivation Level: Asks Questions: Yes Eager to Learn: Yes Cooperative: Yes Receptive (willing/able to accept information): Yes Patient demonstrates understanding of the following: Reason for the appointment, diagnosis and treatment plan: Yes Knowledge of proper use of medications and conditions for which they are ordered (with special attention to potential side effects or drug interactions): Yes Which situations necessitate calling provider and whom to contact: Yes Teaching Concerns Addressed Comments: DR. DE OLIVEIRA WILL COMMUNICATE RESULTS OF MRI TO PT. PT VERBALIZED UNDERSTANDING OF PRE AND POSTOP RSTRICTIONS AND EXPECTATIONS. PT STATES HER MOTHER WILL HELP HER POSTOP AND HELP TAKE CARE OF HER SONS POSTOP. PT DRINKS [place] DEW ALL DAY LONG AND EATS ALOT OF FAST FOOD AND THE IMPORTANCE OF GOOD NUTRITION AND NEED TO CUT DOWN ON THE CAFFEINE PRE AND POSTOP WAS REINFORCED TO PT. Proper use and care of (medical equip, care aids, etc.): NA Nutritional needs and diet plan: Yes Pain management techniques: Yes Patient instructed on hand hygiene: Yes How and/when to access community resources: Yes Infection Prevention: demonstrates understanding of the following: Surgical procedure site care taught NA Signs and symptoms of infection taught NA Wound care taught NA Central venous catheter care taught NA Instructional Materials Used/Given: RADDIOLOGY HANDOUT FOR MRI, PREOP PACKET AND SPINE FUSION BOOKLET. Signature Signed By: Nasrin Demarco RN; 06/24/2009 4:16 PM [employer]. Provider, [facility] Nurse - 06/24/2009 8:00 AM CDT Teacher Adventure Education: Melvi Juárez Status: Final Encounter: 24 Jun 2009 Type: Rooming Note Reason For Visit Scoliosis eval. Do you have any other appointments, tests or procedures within the [employer] system for this same day? 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 Santos Cavanaugh Current history of pain associated with this visit is as follows: Location: upper and mid back Quality: dull, aching Severity: 3 - 6 (Pain scale 1-10, with 10 being the worst) Duration: constant Timing: random flare ups Context: worse after sitting around or getting out of bed Modifying factors: yoga helps Associated signs/symptoms: numbness in both great toes Does this pain wake you up at night? No. 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 Personal Hx Behavioral history: No tobacco use. Home environment: No secondhand tobacco smoke in home. Vital Signs Recorded by Melvi Juárez on 24 Jun 2009 07:59 AM Height: 61.75 in, Weight: 151.4 lb, BMI: 27.9 kg/m2. Allergies No Known Drug Allergy. Current Meds Calcium 600+D 600-400 MG-UNIT Tablet;TAKE 1 TABLET TWICE DAILY with meals; Rx Minocycline HCl 100 MG Capsule;TAKE 1 CAPSULE DAILY WITH FOOD.; Rx Fluticasone Propionate 50 MCG/ACT Suspension;USE 2 SPRAYS IN EACH NOSTRIL ONCE DAILY; Rx Loratadine 10 MG Tablet;TAKE 1 TABLET EVERY MORNING NEEDED.; Rx Saline Nasal [place] 0.65 % Solution;USE 1 SPRAY IN EACH NOSTRIL TWICE DAILY.; Rx Tretinoin 0.025 % Cream;APPLY SPARINGLY TO AFFECTED AREA(S) ONCE DAILY AT BEDTIME.; Rx AAA-MED RECONCILE;per pt.; RPT. Med list offered and patient declined. Signature Signed By: Melvi Juárez LP; 06/24/2009 8:05 AM [employer]. documented in this encounter Plan of Treatment Not on filedocumented as of this encounter Visit Diagnoses Not on filedocumented in this encounter
--- OUTSIDE RECORDS SUMMARY | 2021-12-17 15:14 | XMS_ITS | Encounter Summary ---
:1980 Author Organization [place] Address [facility] [place] [address] Care Team Providers Name Role Phone Unavailable Primary Care Provider Unavailable Encounter Details Date Type Department Care Team Description 10/12/2009 Historic Results [facility] Bebeto Roth [place] Renzo Hartman MD [place] [address], [address] [place], [place] [address] [address] [place], [place] [address] Social History Tobacco Use Types Packs/Day Years Used Date Smoking Tobacco: Never Assessed Sex Assigned at Date Recorded Not on file documented as of this encounter Plan of Treatment Not on filedocumented as of this encounter Procedures Procedure Name Priority Date/Time Associated Comments Diagnosis GLUCOSE BY METER Routine 10/12/2009 10:02 Results for this PM CDT procedure are i n the results section. ROUTINE UA WITH Routine 10/12/2009 10:17 Results for this MICROSCOPIC AM CDT procedure are i n the results section. URINE CULTURE Routine 10/12/2009 10:17 Results fo r this AM CDT procedure are i n the results section. ROUTINE UA WITH STAT 10/12/2009 8:29 AM Result s for this MICROSCOPIC CDT procedure are i n the results section. documented in this encounter Results (ABNORMAL) Glucose by meter (10/12/2009 10:02 PM CDT) P athologist Signature Glucose 170 (H) 60 - 99 MISYS mg/dL Specimen Anatomical Collection Method Collection Time Receive d Time (Source) Location / / Volume Laterality 10/12/2009 10:02 10/13/2009 2:35 PM CDT AM CDT Bebeto Roth MD LAB - BEAKER POCT Performing Organization Address City/[facility]/ZIP Code Phon e Number MISYS Routine UA with microscopic (10/12/2009 10:17 AM CDT) Component Value Ref Test Analysis Performed At [facility] Method Time Signature Source Catheterized MISYS Urine Color Urine Straw MISYS Appearance Urine Clear MISYS Glucose Urine Negative NEG MISYS mg/dL Bilirubin Urine Negative NEG MISYS Ketones Urine Negative NEG MISYS mg/dL Specific [place] 1.005 1.003 - MISYS Urine 1.035 Blood Urine Negative NEG MISYS pH Urine 7.0 5.0 - MISYS 7.0 pH Protein Albumin Negative NEG MISYS Urine mg/dL Urobilinogen Normal 0.0 - MISYS mg/dL 2.0 mg/dL Nitrite Urine Negative NEG MISYS Leukocyte Negative NEG MISYS Esterase Urine WBC Urine <1 0 - 2 MISYS /HPF RBC Urine <1 0 - 2 MISYS /HPF Hyaline Casts 1 0 - 2 MISYS /LPF Specimen Anatomical Collection Method Collection Time Receive d Time (Source) Location / / Volume Laterality 10/12/2009 10:17 10/12/2009 AM CDT 10:19 AM CDT Bebeto Roth MD LAB - URINE ORDERABLES Performing Organization Address City/[facility] Phon e Number MISYS Urine culture (10/12/2009 10:17 AM CDT) Component Value Ref Test Analysis Performed At [facility] Method Time Signature Specimen Catheterized MISYS Description Urine Culture Micro No growth MISYS Micro Report FINAL 10/13/2009 MISYS Status Specimen Anatomical Collection Method Collection Time Receive d Time (Source) Location / / Volume Laterality 10/12/2009 10:17 10/12/2009 AM CDT 10:19 AM CDT Bebeto Roth MD LAB - MICRO GENERAL ORDERABL ES Performing Organization Address City/[facility]/ZIP Code Phon e Number MISYS (ABNORMAL) Routine UA with microscopic (10/12/2009 8:29 AM CDT) Component Value Ref Test Analysis Performed At [facility] Range Method Time Signature Source Unspecified MISYS Urine Color Urine Yellow MISYS Appearance Urine Clear MISYS Glucose Urine Negative NEG MISYS mg/dL Bilirubin Urine Negative NEG MISYS Ketones Urine Negative NEG MISYS mg/dL Specific [place] 1.018 1.003 - MISYS Urine 1.035 Blood Urine Small (A) NEG MISYS pH Urine 6.5 5.0 - MISYS 7.0 pH Protein Albumin Negative NEG MISYS Urine mg/dL Urobilinogen Normal 0.0 - MISYS mg/dL 2.0 mg/dL Nitrite Urine Negative NEG MISYS Leukocyte Negative NEG MISYS Esterase Urine WBC Urine 1 0 - 2 MISYS /HPF RBC Urine 5 (H) 0 - 2 MISYS /HPF Squamous <1 0 - 1 MISYS Epithelial /HPF /HPF Urine Mucous Urine Present (A) NEG /LPF MISYS Specimen Anatomical Collection Method Collection Time Receive d Time (Source) Location / / Volume Laterality 10/12/2009 8:29 AM 0 8:37 CDT AM CDT Bebeto Roth MD LAB - URINE ORDERABLES Performing Organization Address City/State/ZIP Code Phon e Number MISYS documented in this encounter Visit Diagnoses Not on filedocumented in this encounter
--- OUTSIDE RECORDS SUMMARY | 2021-12-17 15:14 | XMS_ITS | Encounter Summary ---
:1980 Author Organization [place] Address [address] [facility] [place] [address] Care Team Providers Name Role Phone Unavailable Primary Care Provider Unavailable Encounter Details Date Type Department Care Team Description 10/13/2009 Historic Notes INTERFACED REPORT Interface, Transcript on, Social History Tobacco Use Types Packs/Day Years Used Date Smoking Tobacco: Never Assessed Sex Assigned at Date Recorded Not on file documented as of this encounter Progress Notes Interface, Visual Educator - 04/30/2010 8:57 PM CDT Notification - Notified Person:: Resident - Notified Persons Balwindercurtis Name: - Notification Talked with Physician Interaction:: - Orders received?: No - Comments:: Discussed elevated HR and sudden onset of shaking with [place]'s residents rounding on pt. Resident assessed pt. No new orders. Will continue to monitor. EZRA Cardoso)[Signed 00:05] Authored: Notification Interface, Visual Educator - 04/30/2010 8:57 PM CDT Notification - Notified Person:: Resident - Notified Persons Wild Name: - Notification Talked with Physician Interaction:: - Purpose of Change in condition notification:: - Orders received?: Yes - Comments:: cALLED MD to discuss pt's unresolved nausea and anxiety (post zofran and valuim). Orders for compazine, and ativan received and given. Pt improved. EZRA Cardoso)[Signed 00:03] Authored: Notification Interface, Visual Educator - 04/30/2010 8:56 PM CDT General Information - Patient Profile See Profile for full history and prior level of Review: function - Onset Date: - Referring Physician: Dr. Kev Rios - Patient/Family Goals: Pt does not state, pt asks multiple times if everything looks normal. - History of Present Pt has history of painful scoliosis since age Problem: 14. She underwent PSF T10-L3. - Treatment Diagnosis: Pain dysfunction, mobility dysfunction secondary to spinal surgery - Precautions/Limitati_ Spine precautions ons: - Weight Bearing Weight bearing as tolerated Status: - Observations: Pt somewhat lethargic, states my back cracked earlier. Cognitive Status - Orientation: orientation to person, place and time - Level of lethargic/somnolent Consciousness: - Follows Commands and 50% of the time Answers Questions: - Personal Safety and intact Judgment: - Memory: intact Pain - Pain: Yes (see Vital Signs flowsheet) Posture - Posture: Posture was appropriate - Comments: In sitting Range of Motion - Range of Motion: ROM was appropriate in all areas - Comment: Spine mobility not tested due to precautions. Pt moving legs actively in bed through functional ROM. Strength - Strength: Strength was appropriate in all areas - Comments: Pt demonstrates antigravity strength in bed, pt cannot follow cues and has pain limiting formal MMT Bed Mobility: Rolling/Turning - Level of stand-by assist Valencia: - Physical verbal cues; supervision Assist/Nonphysical Assist: - Assistive Device: bed rails Bed Mobility: Scooting/Bridging - Level of stand-by assist Valencia: - Physical verbal cues; does not complete Assist/Nonphysical Assist: Bed Mobility: Sit to Supine - Level of contact guard Valencia: - Physical verbal cues; 1 person assist Assist/Nonphysical Assist: Bed Mobility: Supine to Sit - Level of minimum assist (75% patients effort), contact Valencia: guard - Physical 1 person assist; verbal cues Assist/Nonphysical Assist: - Assistive Device: bed rails Bed Mobility Analysis - Bed Mobility impaired ability to control trunk for mobility Limitations: - Impairments pain; post surgical precautions; fear and Contributing to anxiety Impaired Bed Mobility: Transfer: Sit to Stand - Level of unable to perform, pt anxious and nauseous, felt Valencia: like she would vomit, declined Balance Skills Assessment - Sitting Balance: stand-by assist Static: Sensation - Sensation: Sensation was appropriate in all areas Proprioception/Coordination - Proprioception/coord_ proprioception and coordination were appropriate ination: in all area Muscle Tone - Muscle Tone: Muscle tone was appropriate in all areas Treatment Plan - Treatments: Gait Training, Transfer Training, Bed Mobility Training, Strengthening, Neuromuscular Reeducation - Modalities: Cryotherapy Clinical Impression - Skilled Criteria for Yes Therapy Intervention Met: - PT Practice Pattern: Musculoskeletal - Assessment: Pt is a 29y/o female s/p spinal fusion presenting with pain, nausea and anxiety leading to limitations with bed mobility. Pt declined standing transfers and gait because she felt like she would vomit. Pt will benefit from skilled PT intervention for therapeutic exercise, education on safety and fall risk prevention, mobility and gait training with a device, progressing to stairs as able. - Rehabilitation Good, to achieve stated therapy goals Potential (see POC for therapy goals): - Demonstrates need for OT referral to another service: - Predicted Duration of 3-4 days Therapy: - Predicted Frequency BID of Therapy: - Discharge Home with assist; Home with outpatient services Destination: - Anticipated Equipment Front wheeled walker at Discharge: - Risks and Benefits of Yes Treatment have been explained.: - Patient, family Yes and/or staff in agreement with Plan of Care: - Comments: Pt back in bed, feeling less nauseous. YAZAN Miller (PT)[Signed 09:45] Authored: General Information, Cognitive Status, Pain, Posture, Range of Motion, Strength, Bed Mobility: Rolling/Turning, Bed Mobility: Scooting/Bridging, Bed Mobility: Sit to Supine, Bed Mobility: Supine to Sit, Bed Mobility Analysis, Transfer: Sit to Stand, Balance Skills Assessment, Sensation, Propr ioception/Coordination, Muscle Tone, Treatment Plan, Clinical Impression Interface, Visual Educator - 04/30/2010 8:54 PM CDT Progress Note - :: Focus pain D: rated pain 3 at rest 8 with movement. Pt very anxious, worried about infection, moved self in bed, said she felt her back crack and was very concerned wanted to see ortho doctor. Neuros intact, good strength. C/O nausea, refused to take oral meds. Has been sleeping, easy to arouse, all shift. Pt too anxious to get out of bed. I: did not DC MOTEL MANAGER because pt did not want to take pills. encourage use of IS. A: dressing to incision CDI. rates pain 8 but able to sleep. Signatures Amber Hedrick (RN)[Signed 14:37] Authored: Progress Note documented in this encounter Plan of Treatment Not on filedocumented as of this encounter Visit Diagnoses Not on filedocumented in this encounter
--- OUTSIDE RECORDS SUMMARY | 2021-12-17 15:14 | XMS_ITS | Encounter Summary ---
:1980 Author Organization [place] Address [address] [facility] [place] [address] Care Team Providers Name Role Phone Unavailable Primary Care Provider Unavailable Encounter Details Date Type Department Care Team Description 10/13/2009 Historic Notes INTERFACED REPORT Radha Navarro MD Social History Tobacco Use Types Packs/Day Years Used Date Smoking Tobacco: Never Assessed Sex Assigned at Date Recorded Not on file documented as of this encounter Progress Notes Radha Navarro MD - 04/30/2010 8:56 PM CDT ATTENDING PHYSICIAN - Attending Patient seen and evaluated by me separately from Examination: the house staff team. I reviewed the note below and agree. - Review of findings: I have reviewed today's vital signs, medications, labs and imaging results. - Attending Note: 29 yr old wf with past medical history significant for allergic rhinitis, acne vulgaris, candidial vaginitis and scoliosis underwent Spinal Fusion for her scoliosis. She medically stable except for anxiety issue. Continue prn ativan. Will consider adding seroquel. Interval History - Interval History: Pt feels nauseous. Also says that she has 8/10 pain in her back whenever she is moving in her bed. Has blurry vision in her right eye without eye pain, irritaion or watering. Upon asking pt states that she gets mild anxiety attacks, but has never underwent any treatment before. She says that just before undergoing this surgery she was very anxious about the procedure, was thinking about getting paralised after the surgery. Also had fear about dying from the surgery. Had shaking of her hands that time. Yesterday after putting her on Ativan her anxiety got better. Review of Systems - Constitutional No fever, no night sweatings. Comments: - Musculoskeletal Back pain with no tinging or numbness in legs. Comments: - Respiratory Comments: No cough, no SOB, No wheezing. - CV Comments: No chest pain, no palpitations. - Psych Comments: Feels anxious as in HPI. Physical Exam - General: Sleepy but easily arousable. - Eyes: Pupils bilaterally equal and reacing to light. - Lungs: Clear to auscultaion. - Cardiovascular: RRR - Abdominal/Rectal: Soft with positive bowel sounds. - Musculoskeletal: Dressing in place with no oozing or discharge. Vital Signs/Labs/Imaging/Culture Review - Vital Signs: Vital Signs reviewed past 24 hours. - Lab Results: All lab results reviewed past 24 hours. - Imaging Results: All imaging results reviewed past 24 hours. Assessment and Plan - Assessment/Plan: 29 yr old female with h/o acne vulgaris, vaginal yeast infection admitted under [facility] for Spinal fusion for her scoliosis. 1. Scoliosis: Underwent spinal fusion yestaeday. 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 Per [facility] note, they will wean her pain meds today. 2. Anxiety: After coming up from the surgery, pt was tachycardic and was shaking. Her Blood sugar was 170. She received Valium and ativan and felt better. --Seroquel 25 mg PO q 8 hrs PRN for anxiety. --Ativan 0.5 to 1 mg only at night if pt is still agitated. Try to avoid Seroquel and Ativan together as it will make pt more drowsy. 3. Allergic rhinitis: Continue home meds. 4.FEN/GI: Diet advanced today. Zofran for nausea and vomiting. 5. Dispo: Depends on primary team. Signatures GENI ESCALERA)[Signed 22:33] Authored: ATTENDING PHYSICIAN RADHA NAVARRO)[Signed 10:07] Authored: Interval History, Review of Systems, Physical Exam, Vital Signs/Labs/Imaging/Culture Review, Assessment and Plan documented in this encounter Plan of Treatment Not on filedocumented as of this encounter Visit Diagnoses Not on filedocumented in this encounter
--- OUTSIDE RECORDS SUMMARY | 2021-12-17 15:14 | XMS_ITS | Encounter Summary ---
:1980 Author Organization [place] Address [address] [facility] [place] [address] Care Team Providers Name Role Phone Unavailable Primary Care Provider Unavailable Encounter Details Date Type Department Care Team Description 10/12/2009 Historic Notes INTERFACED REPORT Radha Navarro MD Social History Tobacco Use Types Packs/Day Years Used Date Smoking Tobacco: Never Assessed Sex Assigned at Date Recorded Not on file documented as of this encounter Progress Notes Radha Navarro MD - 05/14/2010 5:27 PM CDT ATTENDING PHYSICIAN - Attending Patient [...] Continue prn ativan. Will consider adding seroquel. Admission - Date: 22:00 - Service: [facility]. - Chief Complaint: Back pain. - Informant: patient - Resuscitation Status: Full code. History of Present Illness - HPI: 29 yr old pt with past medical h/o Allergic rhinitis, acne vulgaris, candidial vaginitis and scoliosis is admitted for Spinal Fusion for her scoliosis. As pt is [facility]'s pt. we are consulted from the primary team. Pt underwent spinal fusion under General and intrathecal anesthesia today evening. Tolerated the procedure well. After the procedure she was feeling very shaky and was very concerned that something is wrong with her body. After receving 2 doses of Valium and one dose of Ativan her shaking is better. Pt is very sleepy and wants to rest at this movement and was unable to provide any other detailed history. Past Medical and Surgical History - Past Medical and 1. Acne vulgaris Surgical History: 2.Congenital Scoliosis 3. Allergies. Home Medications - Home Medications: 1. Calcium 600 and Vit D 400 once daily 2. Fexofenadine HCL 180 mg daily 3. Fluconazole 150 mg one time only 4. Fluticasone Proprionate 2 sprays in each nostril daily 5. Loratadine 10 mg as needed. 6. Tretinoin 0.025% cream apply on affected areas. Review of Systems - Constitutional No fever, no night sweats. Comments: - Musculoskeletal Back pain. Comments: - Respiratory Comments: No cough, no SOB, No wheezing. - CV Comments: No chest pain, no palpitations. - Heme Comments: No active bleeding from any sites. - GI Comments: Feels nauseous, no vomiting, no abdominal pain. - Neuro Comments: Shaking of hands, no numbness, no tingling. - Psych Comments: Denies, anxiety, or depression. Physical Exam - General: Sleepy but easily arousable, shaking of hands while awake only. - Neck: Supple - Lungs: Clear to auscultation. - Cardiovascular: Rhytm regualr, tachycardia present. - Abdominal/Rectal: Soft, no bowel sounds. - : Has catheter in for urine. - Musculoskeletal: Unable to perform secondary to pt's sleepiness. - Neuro: Following simple verbal commands, oriented to time, place, person. Moving her legs well. Unable to perform detailed neuro exam as she was sleepy. Vital Signs/Labs/Imaging/Culture Review - Vital Signs: Vital Signs reviewed past 24 hours. - Lab Results: All lab results reviewed past 24 hours. - Imaging Results: All imaging results reviewed past 24 hours. VS 1. Vital Signs Adult Med Surg Temperature degrees F(last 24 hours) 21:00 95.2 19:30 96.4 17:04 97.4 Heart Rate beats/min(last 24 hours) 22:02 110 21:27 123 21:24 155 21:00 133 20:30 103 19:30 105 19:00 113 18:30 92 18:00 107 17:45 95 17:30 101 17:15 102 17:04 103 BP Cuff Systolic BP mmHg(last 24 hours) 21:24 123 21:00 102 20:30 103 19:30 109 19:00 115 18:30 110 18:00 112 17:45 117 17:30 104 17:15 111 17:04 113 BP Cuff Diastolic BP mmHg(last 24 hours) 21:24 66 21:00 64 20:30 63 19:30 40 19:00 76 18:30 81 18:00 73 17:45 73 17:30 63 17:15 69 17:04 70 Resp, Pulse Ox Pulse Oximetry SpO2 %(last 24 hours) 21:24 99 21:00 100 20:30 99 19:30 98 19:00 97 18:30 97 18:00 99 17:45 99 17:30 99 17:15 97 17:04 99 Assessment and Plan - Assessment/Plan: 29 yr old female with h/o acne vulgaris, vaginal yeat infection admitted under [facility] for Spinal fusion for her scoliosis. 1. Scoliosis: Today pt underwent her surgery, medically stable. Managed by the Ortho team. 2. Anxiety: After coming up from the surgery, pt was tachycardic and was shaking. Her Blood sugar was 170. She received Valium and ativan and felt better. --Continue with Ativan 3.FEN/GI: Pt is NPO. On IVF. Continue with NPO until the bowel sounds are present. 4. Dispo: Depends on primary team. Signatures GENI ESCALERA)[Signed 22:29] Authored: ATTENDING PHYSICIAN RADHA NAVARRO)[Signed 09:09] Authored: Admission, History of Present Illness, Past Medical and Surgical History, Home Medications, Review of Systems, Physical Exam, Vital Signs/Labs/Imaging/Culture Review, VS, Assessment and Plan documented in this encounter Plan of Treatment Not on filedocumented as of this encounter Visit Diagnoses Not on filedocumented in this encounter
--- OUTSIDE RECORDS SUMMARY | 2021-12-17 15:14 | XMS_ITS | Encounter Summary ---
:1980 Author Organization [place] Address [address] [facility] [place] [address] Care Team Providers Name Role Phone Unavailable Primary Care Provider Unavailable Encounter Details Date Type Department Care Team Description 04/07/2009 Office Visit-[facility] INTERFACE [facility] DEPT Candy Jensen Social History Tobacco Use Types Packs/Day Years Used Date Smoking Tobacco: Never Assessed Sex Assigned at Date Recorded Not on file documented as of this encounter Progress Notes Candy Jensen MD - 04/07/2009 2:20 PM CST Supervisor Waterproofing: Candy Jensen Status: Final Encounter: 07 Apr 2009 Type: FM Adult CPE Reason For Visit This 28 year patient presents for preventive health visit. Allergy List reviewed: Immunizations reviewed: Pharmacy and Medication list reviewed with patient and was. Allergies No Known Drug Allergy. Current Meds Miconazole 7 2 % Cream;INSERT 1 APPLICATORFUL INTRAVAGINALLY AT BEDTIME NIGHTLY.; Rx Minoxidil 10 MG Tablet;TAKE 1 TABLET ONCE DAILY.; Rx Calcium 600+D 600-400 MG-UNIT Tablet;TAKE 1 TABLET TWICE DAILY with meals; Rx. Immunizations HPV (Gardasil); 07 Apr 2009. Active Problems No Active Problems Listed. Family Hx No Family History in Problem List. Vital Signs Recorded by Martina Gregorio on 07 Apr 2009 02:32 PM BP:102/74, LUE, Sitting, HR: 106 b/min, L Radial, Resp: 16 r/min, Height: 62.5 in, Weight: 144 lb, BMI: 25.9 kg/m2. Adult PE HCM Female Concerns today: 1-Acne on the chest and upper back. 2-vaginal itching and whitish discharge. See Health History Form for ROS See Health history form for Social,healthy habits and sexual history. PAST MEDICAL HISTORY See PMH: reviewed no other significant history. FAMILY HISTORY :See FH:reviewed no other significant FH Cholesterol Level Recommended Chlamydia/GC screening (26y and sexually active) Recommended Cervical cancer screening start 3 years after onset of sexual activity, or by age 21. (> 30 yo screen every 1-3 years)Recommended IMMUNIZATIONS: Reviewed Immunization Record Today Gardisil vaccine will be given follow up in two months and four months for complete series. Td recieved < she think it was <10y and so not indicated EXAMINATION: Constitutional: no distress, comfortable, pleasant Vital signs: Reviewed and normal Eyes: anicteric, normal extra-ocular movements Ears, Nose and Throat: tympanic membranes clear, nose clear and free of lesions, throat clear. Neck: supple with full range of motion, no thyromegaly Cardiovascular: regular rate and rhythm, no murmurs, rubs or gallops, peripheral pulses full and symmetric Respiratory: clear to auscultation, no wheezes or crackles, normal breath sounds Gastrointestinal: positive bowel sounds, nontender, no hepatosplenomegaly, no masses Genitourinary:normal external genitalia, cervix normal without lesions, no masses or cervical motiontendernessThin Prep collected Chlamydia and GC DNA probe collected Musculoskeletal:full range of motion, no edema Skin:Acne on the upper chest and upper back, severe, with Breast: no lumps, no nipple discharge Neurological: cranial nerves intact, normal strength and sensation, reflexes at patella and biceps normal, normal gait, no tremor Psychological:appropriate mood Lymphatic: no cervical, axillary, or inguinal lymphadenopathy ASSESSMENT: Normal Physical Exam 1. Health Care Maintenance 2. STD concerns, I started her on micostatin for yeast infection, and I did order HIV, Hepatitisb&C 3. FOR acne I did give alon Minocycline once daily for 3 months Td: will wait for her FRANKY to verify if she is uptodate with her vaccines. . Orders Discontinue Minoxidil 10 MG Tablet. Minocycline HCl 100 MG Capsule;TAKE 1 CAPSULE DAILY WITH FOOD; Qty30; R3; Rx. Renew Miconazole 7 2 % Cream;INSERT 1 APPLICATORFUL INTRAVAGINALLY AT BEDTIME NIGHTLY; Qty0; R0; Rx. Renew Calcium 600+D 600-400 MG-UNIT Tablet;TAKE 1 TABLET TWICE DAILY with meals; Qty60; R12; Rx. Attending Note Pt. seen and examined. Care plan reviewed and discussed with resident. Agree with Assessment and Plan of Care. Supervising Physician Toshia Valdez Signature Signed By: Candy Gutierrez M.D.,Resident; 04/07/2009 5:47 PM CLOUD SERVICES ARCHITECT; Author. Signed By: Cindy Pope M.D.; 04/07/2009 9:21 PM CLOUD SERVICES ARCHITECT; Author. documented in this encounter Plan of Treatment Not on filedocumented as of this encounter Visit Diagnoses Not on filedocumented in this encounter
--- OUTSIDE RECORDS SUMMARY | 2021-12-17 15:14 | XMS_ITS | Encounter Summary ---
:1980 Author Organization [place] Address [address] [facility] [place] [address] Care Team Providers Name Role Phone Unavailable Primary Care Provider Unavailable Encounter Details Date Type Department Care Team Description 09/22/2009 Office Visit-[facility] INTERFACE P DEPT Amanda Brown MD [facility] [address] [place], [place] [id number] (Wo rk) Social History Tobacco Use Types Packs/Day Years Used Date Smoking Tobacco: Never Assessed Sex Assigned at Date Recorded Not on file documented as of this encounter Progress Notes Amanda Brown - 09/22/2009 9:40 AM CDT Vaccine Specialist: Kevin Amanda Status: Final Encounter: 22 Sep 2009 Type: FM Adult CPE Reason For Visit This 29 year patient presents for pre-op surgery date 10/13/2009 spinal fusion Allergy List reviewed: Current Immunizations reviewed: Pharmacy and Medication list reviewed with patient and was. Allergies No Known Drug Allergy. Smoking Assessment No secondhand cigarette smoke exposure. No tobacco use. Current Meds Calcium 600+D 600-400 MG-UNIT Tablet;TAKE 1 TABLET TWICE DAILY with meals; Rx Minocycline HCl 100 MG Capsule;TAKE 1 CAPSULE DAILY WITH FOOD.; Rx Fluticasone Propionate 50 MCG/ACT Suspension;USE 2 SPRAYS IN EACH NOSTRIL ONCE DAILY; Rx Loratadine 10 MG Tablet;TAKE 1 TABLET EVERY MORNING NEEDED.; Rx Saline Nasal [place] 0.65 % Solution;USE 1 SPRAY IN EACH NOSTRIL TWICE DAILY.; Rx Tretinoin 0.025 % Cream;APPLY SPARINGLY TO AFFECTED AREA(S) ONCE DAILY AT BEDTIME.; Rx AAA-MED RECONCILE;per pt.; RPT. Immunizations HPV (Gardasil); 07 Apr 2009. 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 Family Hx No Family History in Problem List. Vital Signs Recorded by freddy on 22 Sep 2009 09:50 AM BP:110/75, LUE, Sitting, HR: 98 b/min, L Radial, Temp: 98.3 F, Oral, Height: 62 in, Weight: 152.2 lb, BMI: 27.8 kg/m2. Adult PE Pre-Operative Exam Date of exam: 09/22/09 Surgery Date: 10/13/09 Location: [place] Pre-op diagnosis: Scoliosis Chief Complaint: Pain HPI: Pt has scoilisis and now having pain and loosing height and so recommended surgery. Procedure: Spinofusion Surgeon: Dr Roth Review of Systems Constitutional: no fevers, night sweats or unintentional weight change Eyes: no vision change, diplopia or red eyes Ears, Nose, Mouth, Throat: no tinnitus or hearing change, no epistaxis or nasal discharge, no oral lesions, throat clear Cardiovascular: no chest pain, palpitations, or pain with walking, no orthopnea or PND Respiratory: no dyspnea, cough, shortness of breath or wheezing GI: no nausea, vomiting, diarrhea or constipation, no abdominal pain : no change in urine, no dysuria or hematuria Musculoskeletal: no joint or muscle pain or swelling Neuro: both great toe numbness on inner side Endo: feels cold in extremities sometime Heme/Lymph: no concerning bumps, no bleeding problems Allergy: has seaosnal allergies PFSH scoliosis aunts and cousins Past medical Hx CAD None DM None Cancer None History of excessive bleeding No Anesthesia Complications No Family Hx : DM None FHx of excessive bleeding? No FHx of Anesthesia Complications ? No Aspirin use within 10 days of surgery? None Social Hx Abuse History Negative Risk behaviors & healthy habits Tobacco Use/Smoking None Illicit Drug Use None ETOH None Little interest or pleasure in doing things. 0 = Not at all Feeling down, depressed, or hopeless. 0 = Not at all IMMUNIZATIONS: Last Td Date:[ ] Pneumovax Needed? No Flu shot Needed? ACC/AHA classification of surgical procedure risk Moderate Risk Jason's Simple Cardiac Risk Index : 1 point for present 0 points for absent High risk surgery 0 Coronary Artery Disease 0 Congestive Heart Failure 0 History of Cerebrovascular disease 0 Insulin treatment for DM 0 Preoperative serum Creatinine >2.0 0 Total Points 0 Score interpretation-(risk of complications) 0 pt =class I (0.4%) EXAMINATION: Physical Exam Constitutional: no distress, comfortable, pleasant Eyes: anicteric, normal extra-ocular movements Ears, Nose [...] bowel sounds, nontender, no hepatosplenomegaly, no masses Musculoskeletal: full range of motion, no edema Skin:no concerning lesions, no jaundice Neurological: cranial nerves intact, normal strength and sensation, reflexes at patella and biceps normal, normal gait, no tremor Psychological: appropriate mood Lymphatic: no cervical lymphadenopathy Minimum Recommended Testing Hemoglobin Assessment/Plan: Patient is medically cleared for surgery. Proceed with surgery as scheduled. With numbness in her toes would recommend referral to neurologist since pt was worried if it could be multiple sclerosis, at this time its low probability and should not be a barrier to her surgery butconsider getting neurologist if possible before surgery. Results S Hemoglobin 22 Sep 2009 10:52 AM - Hemoglobin: 13.0 g/dl. Results cited above have been reviewed and communicated to patient. Assessment Normal routine history and physical adult (V70.0) Attending Note Patient reviewed and discussed with resident. Agree with Plan of Care. Luigi Solano MD. Signature Signed By: Amanda Brown MD,Resident; 09/22/2009 3:16 PM GENETIC COORDINATOR; Author. Signed By: Luigi Solano ; 09/22/2009 9:41 PM GENETIC COORDINATOR. documented in this encounter Plan of Treatment Not on filedocumented as of this encounter Visit Diagnoses Not on filedocumented in this encounter
--- OUTSIDE RECORDS SUMMARY | 2021-12-17 15:14 | XMS_ITS | Encounter Summary ---
:1980 Author Organization [place] Address [facility] [place] [address] Care Team Providers Name Role Phone Unavailable Primary Care Provider Unavailable Encounter Details Date Type Department Care Team Description 10/13/2009 Historic Results INTERFACED REPORT Kev Rios MD [facility] [address] [place], [place] [address] (Wo rk) Social History Tobacco Use Types Packs/Day Years Used Date Smoking Tobacco: Never Assessed Sex Assigned at Date Recorded Not on file documented as of this encounter Plan of Treatment Not on filedocumented as of this encounter Procedures Procedure Name Priority Date/Time Associated Comments Diagnosis HEMOGLOBIN Routine 10/13/2009 6:49 AM Results f or this CDT procedure are i n the results section. BASIC METABOLIC Routine 10/13/2009 6:49 AM Result s for this PANEL CDT procedure are i n the results section. documented in this encounter Results (ABNORMAL) Hemoglobin (10/13/2009 6:49 AM CDT) athologist Signature Hemoglobin 9.5 (L) 11.7 - 15.7 [place] g/dL Specimen (Source) Anatomical Collection Method Collection Time Re ceived Time Location / / Volume Laterality 10/13/2009 6:49 AM 0 CDT Kev Rios MD LAB - BLOOD ORDERABLES Performing Organization Address City/State/ZIP Code Phon e Number [place]IS[place] (ABNORMAL) Basic metabolic panel (10/13/2009 6:49 AM CDT) athologist Signature Sodium 137 133 - 144 [place] mmol/L Potassium 3.6 3.4 - 5.3 [place] mmol/L Chloride 108 94 - 109 [place] mmol/L Carbon Dioxide 25 20 - 32 [place] mmol/L Glucose 109 (H) 60 - 99 [place] mg/dL Urea Nitrogen 6 5 - 24 [place] mg/dL Creatinine 0.70 0.52 - [place] 1.04 mg/dL Comment: New IDMS-traceable calibration beginning 06/14/07 GFR Estimate >90 >60 mL/min/1.7m2 [place] GFR Estimate If Black >90 >60 mL/min/1.7m2 M [facility] Calcium 7.9 (L) 8.5 - 10.4 mg/dL [place] Anion Gap 3.8 (L) 6 - 17 mmol/L [facility] Specimen (Source) Anatomical Collection Method Collection Time Re ceived Time Location / / Volume Laterality 10/13/2009 6:49 AM 0 CDT Kev Rios MD LAB - BLOOD ORDERABLES Performing Organization Address City/State/ZIP Code Phon e Number [place]IS[place] documented in this encounter Visit Diagnoses Not on filedocumented in this encounter
--- OUTSIDE RECORDS SUMMARY | 2021-12-17 15:14 | XMS_ITS | Encounter Summary ---
:1980 Author Organization [place] Address [address] [facility] [place] [address] Care Team Providers Name Role Phone Unavailable Primary Care Provider Unavailable Encounter Details Date Type Department Care Team Description 06/24/2009 Results Only [facility] Bebeto Roth MD [facility] Results [address] [place], [place] [phone] (Wo rk) Social History Tobacco Use Types Packs/Day Years Used Date Smoking Tobacco: Never Assessed Sex Assigned at Date Recorded Not on file documented as of this encounter Plan of Treatment Not on filedocumented as of this encounter Procedures Procedure Name Priority Date/Time Associated Diagnosis Comme nts X-RAY SPINE 1 Routine 06/24/2009 11:14 AM Resu lts for this VIEW CDT procedure are i n the results section. HC X-RAY SPINE Routine 06/24/2009 8:20 AM Results for this ENTIRE SURVEY CDT procedure are in AP/LAT the results section. documented in this encounter Results X-RAY SPINE ONE VIEW (06/24/2009 11:14 AM CDT) Anatomical Region Laterality Modality Other Specimen (Source) Anatomical Collection Method Collection Time Re ceived Time Location / / Volume Laterality 06/24/2009 11:14 AM CDT Impressions 07/30/2009 2:54 PM CDT ?? RADIOGRAPHIC EVALUATION: ??Indication: ? ?Scoliosis. ?? Comparison: ??None. ? Films obtained: ??AP, lateral of the ent deborah spine as well as supine side bending and hyperextension films we re obtained today. ? Radiographic findings: ??On the AP x-ray of the entire spine, she had normal lung lowery, normal heart border. ??There is no osseous or soft tissue lesions visualized. ??Of note, x- ray was not of great quality visualized in the soft tissue. ??It did have excellent visualization of the thoracolumbar spine. ??She has a 65 degree right thoracolumbar curve from T-9 to L-2. ??On the lateral film, she has saggital imbalance with kyphosis from T-10 to L-2 of 42 degrees. ??Normal should be zero degrees. ??On the flexion /extension films on the left side bending films, her lumbar curve cor rects completely. ??Her upper thoracic curve also corrects completely. ??On the bending to the right, her main thoracolumbar curve sherley ects to 28 degrees measured from T-9 to L-2. ? Radiographic impression: ??She has a Michael ke 5C+ classification thoracolumbar main curve measuring 65 de grees from T-9 to L-2. ??This is associated with kyphoscoliosis as she has a 42 degree kyphotic deformity from T-10 to L-2. ??The main t horacolumbar curve corrects to 28 degrees. Bebeto Roth MD GENERAL IMAGING X-RAY SPINE SURVEY (06/24/2009 8:20 AM CDT) Anatomical Region Laterality Modality Other Specimen (Source) Anatomical Collection Method Collection Time Re ceived Time Location / / Volume Laterality 06/24/2009 8:20 AM CDT Impressions 07/30/2009 2:54 PM CDT ?? RADIOGRAPHIC EVALUATION: ??Indication: ? ?Scoliosis. ?? Comparison: ??None. ? Films obtained: ??AP, lateral of the ent deborah spine as well as supine side bending and hyperextension films we re obtained today. ? Radiographic findings: ??On the AP x-ray of the entire spine, she had normal lung lowery, normal heart border. ??There is no osseous or soft tissue lesions visualized. ??Of note, x- ray was not of great quality visualized in the soft tissue. ??It did have excellent visualization of the thoracolumbar spine. ??She has a 65 degree right thoracolumbar curve from T-9 to L-2. ??On the lateral film, she has saggital imbalance with kyphosis from T-10 to L-2 of 42 degrees. ??Normal should be zero degrees. ??On the flexion /extension films on the left side bending films, her lumbar curve cor rects completely. ??Her upper thoracic curve also corrects completely. ??On the bending to the right, her main thoracolumbar curve sherley ects to 28 degrees measured from T-9 to L-2. ? Radiographic impression: ??She has a Michael ke 5C+ classification thoracolumbar main curve measuring 65 de grees from T-9 to L-2. ??This is associated with kyphoscoliosis as she has a 42 degree kyphotic deformity from T-10 to L-2. ??The main t horacolumbar curve corrects to 28 degrees. Bebeto Roth MD GENERAL IMAGING documented in this encounter Visit Diagnoses Not on filedocumented in this encounter
--- OUTSIDE RECORDS SUMMARY | 2021-12-17 15:14 | XMS_ITS | Encounter Summary ---
:1980 Author Organization [place] Address [facility] [address] Care Team Providers Name Role Phone Unavailable Primary Care Provider Unavailable Encounter Details Date Type Department Care Team Description 10/12/2009 Operative Report [facility] Myles De Oliveira (Steam Boiler Fireman) [facility] MD Devan Results [address] [place], [place] [phone] Social History Tobacco Use Types Packs/Day Years Used Date Smoking Tobacco: Never Assessed Sex Assigned at Date Recorded Not on file documented as of this encounter Progress Notes Myles De Oliveira - 10/29/2009 7:59 AM CDT FINAL PREOPERATIVE DIAGNOSIS: Adult idiopathic scoliosis. POSTOPERATIVE DIAGNOSIS: Adult idiopathic scoliosis. PROCEDURES: 1. Posterior spinal fusion T10 through L3. 2. Segmental spinal instrumentation T10 through L3. 3. Image-guided surgery. 4. Injection of intrathecal substance. SURGEON: Myles De Oliveira Jr., MD. JOINT CUTTER: Kev Rios MD. SPONGE AND NEEDLE COUNT: Correct. SPECIMEN TO LAB: None. INDICATION FOR OPERATION: Azul Forrester is an adult female with a history of idiopathic curve that was untreated as an adolescent. The curve had continued to progress and become more symptomatic for her. The curve had gotten up to a magnitude of approximately 65 degrees. We had an extensive discussion about the treatment options along with the alternatives and expected outcomes. Given a curve of this magnitude, the probability of progression is still substantial. Her marked thoracolumbar hyperkyphosis was also of note. Because of this, my recommendation was that she undergo a posterior spinalfusion from T10 through L3 with the potential need for Rivera-Peralta osteotomies to correct the kyphosis. The plan was for segmental pedicle screw instrumentation and then a corrective set of maneuvers along with the posterior fusion. The risks and benefits were extensively discussed with the patientand it was her desire to proceed. DESCRIPTION OF TECHNICAL PROCEDURES USED: The patient was brought to the operating room and underwent the induction of adequate general anesthetic. She then had a Pennington catheter placed and appropriateneuro monitoring lines attached. Of note is that she had a question of a UTI from her preoperative evaluation, and repeat UA was sent, which was leukocyte esterase negative. She did receive one oral dose of Septra DS in the preoperative area before being brought to the OR. Once in the operating room, neuro monitoring leads were attached and she was turned and position prone on the Chriss table 4-drywall installer frame. She was then prepared and draped in the usual sterile fashion. Because of some posterior acne on her scan, 2 separate sterile preps were done with DuraPrep. The spine was then exposed from T10 through L3. Intraoperative imaging was used to confirm the appropriate level of dissection. Once the spine was exposed, the tracking arc for the Sociocast navigation system was placed on the spinous process of L3. The O-arm was brought in and set 3D images obtained. This was used to navigate and place pedicle screws. Pedicle screws were all titanium screws from the Legacy 5.5 mm diameter system. The screws were placed in the following fashion at L3 on the left, 7.5 x 50; on the right, 6.5 x 45 L2 left. These were fixed head screws on the left, 5.5 x 50; on the right, 5.5 x 50; L1 on the left, a 4.0 x 45 multiaxial screw; on the right, a 4.5 x 45 fixed screw; T12, left, 5.0 x 40; right, 5.5 x 45; T11, 5.0 x 40 onthe left and a 4.5 x 40 multiaxial screw on the right; and T10 5.0 x 40 bilaterally. Once the screwswere placed, a confirmatory 3D scan was obtained with the O-arm and confirmed acceptable positioningfor all the screws. On the L1 screw there was no lateral cortex because the pedicle was probably only 3 mm in diameter, so the screw did not violate the medial border, but did not violate the lateral border of the cortical bone, but was into the vertebral body in an appropriate fashion. There was a question about 1 or 2 mm of medial cortical wall breach on the right at T11; however, neuro monitoring had been stable throughout and it appeared to me to be partially magnification and the screw was in my impression acceptable and so was not changed. At all the levels the screw position was optimal. The facets were then resected utilizing an osteotome and a rongeur. Once this was done, the spine was more mobile and manual adjustment of it with pushing showed that it did appear to be improved in its inflexibility compared to preoperatively. Next, appropriate length 5.5 mm diameter cobalt chrome rods were cut and contoured. Initially, I started with the right-sided jim and seated in at L3 and then proceeded to cantilever the jim into place up to T10. Set plugs were then set into place. L-benderswere used for in situ contouring. Next, direct apical vertebral derotation was done in an en bloc fashion from T12 through L2. Approximately 4 rounds of derotation with a direct apical vertebral derotators were done. Once this was completed, then the left-sided ijm was cantilevered into place from thebottom to the top as well. Additional compression was applied on the convexity to correct the kyphosis. The O-arm had been removed and the C-arm was brought in and some compression and distraction was applied to the horizontal fitzpatrick at L3 and make it parallel to the sacrum. Once this was done, intraoperative long films were obtained. I was happy with the distal instrumented vertebra and its relationship to the sacrum; however, it appeared that the proximal thoracic spine had a little bit more of a tilted off to the left beyond what I wanted. Therefore, I applied some additional compression from T12 through T10 on the right side and additional distraction across those same levels on the left side. New long films were obtained and appeared to be in good position. Of note is that her hyperkyphosisat the thoracolumbar junction was markedly improved. Next, the posterior elements were decorticated. The local bone plus 90 mL of allograft bone, which had been mixed with 1 gram of vancomycin powder was used to perform a posterior and posterolateral fusion. Just prior to this at the L2- L3 interspace, a lumbar puncture was performed with a 22-gauge spinal needle and 0.3 mg of intrathecal morphine administered at 2:00 p.m. The wound had been irrigated out copiously several times. The bone graft was applied, then the wound closed in layers, #1 absorbable sutures were used to reattach the thoracolumbar fascia to the spinous processes followed by running #1 followed by the placement of an 8-inch Hemovac drain, which was brought out proximally. Next, a series of approximation sutures were placed in the deep subcutaneous tissues, followed by 2-0 subcutaneous running suture, followed by 4-0 Monocryl. Benzoin, Steri-Strips and dressing sponges. Estimated blood loss for this case was 500 mL. The patient received 140 mL backvia Cell Saver return. Neurologic monitoring remained stable throughout for motor evoke potentials and somatosensory evoked potentials. Electronically signed on 10/29/2009 07:58 by MYLES DE OLIVEIRA JR, MD MT: MAYRA Name: AZUL FORRESTER Account: [id number] : 1980 Procedure Date: 10/12/2009 Document: [id number] cc: Azul Forrester [facility] documented in this encounter Plan of Treatment Not on filedocumented as of this encounter Visit Diagnoses Not on filedocumented in this encounter
--- OUTSIDE RECORDS SUMMARY | 2021-12-17 15:14 | XMS_ITS | Encounter Summary ---
:1980 Author Organization [place] Address [address] [facility] [address] Care Team Providers Name Role Phone Unavailable Primary Care Provider Unavailable Encounter Details Date Type Department Care Team Description 05/18/2009 Office Visit-[facility] INTERFACE [facility] DEPT Provider, [facility] Nurs e Social History Tobacco Use Types Packs/Day Years Used Date Smoking Tobacco: Never Assessed Sex Assigned at Date Recorded Not on file documented as of this encounter Progress Notes Provider, [facility] Nurse - 05/18/2009 4:00 PM CDT Optical Design Engineer: Nelson Holliday Status: Final Encounter: 18 May 2009 Type: FM Letters [employer] Letters Ms. AZUL FORRESTER [address] [place] [address] May 18, 2009 Dear Ms. AZUL FORRESTER Please see below for your results from your recent testing. Your result are reassuring. If you have questions please contact the clinic to make an appointment with your primary doctor to discuss the results. Sincerely, LC [facility] Hours: Monday- Monday 8:00 am - 5:00 pm . Results Cytopathology 07 Apr 2009 12:00 AM - Cytopathology PAP NIL Patient Name: AZUL FORRESTER MR#: [id number] Specimen #: [id number] Collected: 04/07/2009 Received: 04/08/2009 Reported: 04/09/2009 11:39 Ordering Phy(s): JULES CAMPUZANO SPECIMEN/STAIN PROCESS: Pap thin layer prep screening ([facility]) Pap-Cyto x 1, Digene Reflex HPV x 1 SOURCE: Cervical Pap thin layer prep screening ([facility]) SPECIMEN ADEQUACY: Satisfactory for evaluation. -Transformation zone component present. CYTOLOGIC INTERPRETATION: Negative for Intraepithelial Lesion or Malignancy Electronically signed out by: APOLLO Moulton (ASCP) Processed and screened at [facility] CLINICAL HISTORY: LMP: 03/30/09 TESTING LAB LOCATION: [facility], [address] [address] COLLECTION SITE: Client: [facility] Location: [facility]. Signature Signed By: Nelson Holliday [facility]; 05/18/2009 3:46 PM MANAGER OB. documented in this encounter Plan of Treatment Not on filedocumented as of this encounter Visit Diagnoses Not on filedocumented in this encounter
--- OUTSIDE RECORDS SUMMARY | 2021-12-17 15:14 | XMS_ITS | Encounter Summary ---
:1980 Author Organization [place] Address Counts include 234 beds at the [facility] [place] [address] Care Team Providers Name Role Phone Unavailable Primary Care Provider Unavailable Encounter Details Date Type Department Care Team Description 10/12/2009 Results Only [facility] Poll y, Bebeto Hartman MD Radiology Results [address] [place], [place] [phone] (Wo rk) Social History Tobacco Use Types Packs/Day Years Used Date Smoking Tobacco: Never Assessed Sex Assigned at Date Recorded Not on file documented as of this encounter Plan of Treatment Not on filedocumented as of this encounter Procedures Procedure Name Priority Date/Time Associated Diagnosis Comme [facility] X-RAY SPINE Routine 10/12/2009 2:54 PM Results for this ENTIRE SURVEY CDT procedure are in AP/LAT the results section. documented in this encounter Results X-RAY SPINE SURVEY (10/12/2009 2:54 PM CDT) Anatomical Region Laterality Modality Other Specimen (Source) Anatomical Collection Method Collection Time Re ceived Time Location / / Volume Laterality 10/12/2009 2:54 PM CDT Impressions 10/14/2009 3:31 PM CDT SPINE ENTIRE CERVICAL/THORACIC/LUMBAR AP LATERAL PORTABLE Oct 12, 2009 2:54:00 PM HISTORY: Long films post spinal fusion. COMPARISON: 06/24/2009 FINDINGS: In the interim the patient has undergone placement of posterior spinal hardware fixation from the T10 through the L3 level with bilateral pedicle screws and vertic al connecting rods. The previously seen curvature of the thoraco lumbar spine convex to the right measuring 65 degrees has decreased to 14 degrees. The previously seen thoracolumbar kyphosis has also sig nificantly improved. Endotracheal tube is seen with its tip j ust above the laura. Bebeto Roth MD GENERAL IMAGING documented in this encounter Visit Diagnoses Not on filedocumented in this encounter
--- OUTSIDE RECORDS SUMMARY | 2021-12-17 15:14 | XMS_ITS | Encounter Summary ---
:1980 Author Organization [place] Address [facility] [place] [address] Care Team Providers Name Role Phone Unavailable Primary Care Provider Unavailable Encounter Details Date Type Department Care Team Description 06/24/2009 Office Visit-[facility] Orthopaedic Clinic Bebeto Rothide Renzo Hartman MD [address] Floor, [id number] [place] [address] [phone] Social History Tobacco Use Types Packs/Day Years Used Date Smoking Tobacco: Never Assessed Sex Assigned at Date Recorded Not on file documented as of this encounter Progress Notes Bebeto Roth - 06/24/2009 8:00 AM CDT Grain Scooper: Bebeto Roth Status: Final - Signature Encounter: 24 Jun 2009 Type: U Ortho Visit Department of Orthopaedic Surgery Administration: [address], [address] [place] [phone] or [phone] Appointments [email or web address] Mail Address: [address], [address] [place] [id number] Shmuel Ruiz MD General Orthopaedics Marcella Wilson MD Hand, Wrist, Elbow Quyen Simms MD Sports Medicine - Knee Adult Reconstruction - Knee Clem Bower MD Shoulder Georgi Cross MD Oncology and Adult Reconstruction Aba Burgos MD Oncology Martin Sheffield MD Professor Emeritus Evan Guzmán MD, PhD Shoulder/Sports Medicine Katheryn MustafaPFlaquitaM. Foot and Ankle Neo Mccord MD Joint Preservation, Resurfacing, and Replacement Young Adult Hip & Knee Shoaib Thomas MD Sports Medicine, Shoulder Gurwinder Rockwell MD Foot and Ankle Bebeto Roth Jr., Spine John Garcia MD Hand/Trauma Georgi Murdock MD Spine Katheryn VillatoroP.M. Podiatry Clem Samano MD Spine Edgar Ojeda MD Trauma Wilton German MD Oncology and Adult Reconstruction Melvi Zapata MD Hand/Pediatric Quincy Meek MD Pediatric ORTHOPAEDIC SURGERY CLINIC VISIT RE: JOCELIN FORRESTER : 1980 DOS: 06/24/2009 REFERRING PHYSICIAN: Candy Gutierrez M.D., of [facility]. CHIEF COMPLAINT: Low back pain and mid thoracic back pain. HISTORY OF PRESENT ILLNESS: Jocelin Solis is a pleasant 28-year-old female who is seen in consultation at the request of Dr. Gutierrez for evaluation of her mid to low back pain. Patient states that she initially developed some problems with her back when she was 14 years of age. She was noted to haveadolescent idiopathic scoliosis. She wore a brace at night for a couple of years and the curve just continued to progress. Her parents made the decision when she was 16 years of age that when the surgeon recommended that she should go ahead and have her spine fused, that they removed her from medical care and she states that she did not go back to see this physician again. In the meantime, she has been seeing a chiropractor who has done adjustments. 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 She reports in the past that she has tried doing some yoga. The yoga has helped somewhat but not 100 percent. Patient reports that the pain is rated three to six out of ten. It's a dull achy pain. It's more in the mid thoracic spine. It's constant with random flare-ups. It's worse getting around and getting out of bed. Yoga did seem to help. She is reporting some numbness on the medial border of both great toes especially with yoga. Otherwise, she states that she is noting that she is starting to get a little bit shorter and feels that her right leg is a little bit shorter than her left leg.She denies any bowel or bladder problems. She denies any night time pain that wakes her up. She denies any weakness in the lower extremities and denies any numbness with the exception of the great toes. ALLERGIES: No known drug allergies. MEDICATIONS: Please see Allscripts for the complete list. Of note, she is on Minocycline for acne, calcium, fluconazole, ranitidine, saline. PAST MEDICAL HISTORY: 1. Acne. Congenital scoliosis. PAST SURGICAL HISTORY: None. FAMILY HISTORY: She has no family history of blood clots or problems with anesthesia. Her cousins, aunts all have had scoliosis in the past. SOCIAL HISTORY: She currently is working two jobs. 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 She lives with her mother. She has two children who live with her as well. She denies drinking, smoking or doing any drugs. REVIEW OF SYSTEMS: A 14 system review of systems was performed today. It was negative with the exceptions mentioned in past medical history and history of present illness. PHYSICAL EXAMINATION: Physical examination reveals a pleasant, well header, well nourished, female in no acute distress. Pupils were equal and round. Head was atraumatic, normocephalic. Speech was non pressured, non slurred. Affect was within normal limits. Breathing was nonlabored today. Patient's skin examination reveals no rashes or lesions identified with the exception of some acne on th face. Patient's vascular status revealed that she has 2+ dorsalis pedis pulses. Sensation was intact and symmetric in L-2 through S-1 nerve distribution. She had 5/5 strength in EHL, FHL, anterior tibialis, gastroc soleus, hamstrings, and quadriceps. Patient had full and symmetric range of motion of bilateral hips. She had negative Curtis test for hip flexion contracture. Patient's spine examination revealed that she had tenderness to palpation of the mid thoracic thoracolumbar junction. Scoliometer reading demonstrated that she had a right sided prominence measuring 25 degrees at the thoracolumbar junctionby scoliometer. At the upper thoracic level, it measured five degrees right side prominent and in the lower lumbar, it was three degrees left side prominent. Patient's leg lengths appear to be symmetric. She did not have any pelvic obliquity noted today. Patient's deep tendon reflexes were symmetric and rated 2+ and she had symmetric abdominal reflexes RADIOGRAPHIC EVALUATION: Indication: Scoliosis. Comparison: None. Films obtained: AP, lateral of the entire spine as well as supine side bending and hyperextension films were obtained today. Radiographic findings: On the AP x-ray of the entire spine, she had normal lung lowery, normal heartborder. There is no osseous or soft tissue lesions visualized. Of note, x-ray was not of great quality visualized in the soft tissue. It did have excellent visualization of the thoracolumbar spine. Shehas a 65 degree right thoracolumbar curve from T-9 to L-2. On the lateral film, she has saggital imbalance with kyphosis from T-10 to L-2 of 42 degrees. Normal should be zero degrees. On the flexion/extension films on the left side bending films, her lumbar curve corrects completely. Her upper thoracic curve also corrects completely. On the bending to the right, her main thoracolumbar curve corrects to 28 degrees measured from T-9 to L-2. Radiographic impression: She has a Lenke 5C+ classification thoracolumbar main curve measuring 65 degrees from T-9 to L-2. This is associated with kyphoscoliosis as she has a 42 degree kyphotic deformity from T-10 to L-2. The main thoracolumbar curve corrects to 28 degrees. CLINICAL IMPRESSION: Kyphoscoliosis from T-9 to L-2. ASSESSMENT/PLAN: Patient had a long discussion today with Dr. Roth. They discussed possible optionsof treatment which include operative versus nonoperative measures. Nonoperative measures would be continued observation. It was discussed with her the fact that this is not an emergent operation. It was discussed, however, that the natural history of this disorder with this degree of curve magnification may lead to further os sequelae down the road. She did have the risks and benefits of operative intervention which include but are not limited to the risk of bleeding, infection, nerve damage including paralysis, optic neuritis possibly leading to blindness as well as hardware/instrumentation issuesor other etiology. She wishes to proceed with operative intervention at this time. We will obtain anMRI scan of her lumbar spine as she is reporting that she is starting to develop some ticks which isnew for her. It will be determined whether or not the cord is tethered or whether there are any intra cordal lesions. We would like her to also meet with Stacey, our nurse coordinator here. She will go over the preoperative work-up and plan. We will also discuss the risks and benefits of the patient enrolling in a research study. She did verbal consent to enroll. We will have the patient placed on the surgery schedule for the date of her choice. She will be notified of the results of the MRI scan. Greater than 90 minutes were spent with the patient of which greater than 50 percent of it was face to face time discussing treatment and the plan. Dictated by Lan Javier MD I have personally examined this patient and have reviewed the clinical presentation and progress note with the resident. I agree with the treatment plan as outlined. The plan was formulated with the resident on the day of the resident dictation. Bebeto Roth M.D. Professor Chief of Spine Service DP:11 cc: Candy Gutierrez M.D., Resident [facility] Electronically signed by:Bebeto Roth M.D. Jun 25 2009 2:45PM PURCHASING OFFICER documented in this encounter Plan of Treatment Not on filedocumented as of this encounter Visit Diagnoses Not on filedocumented in this encounter
--- OUTSIDE RECORDS SUMMARY | 2021-12-17 15:14 | XMS_ITS | Encounter Summary ---
:1980 Author Organization [place] Address [facility]0 [facility] [place] [address] Care Team Providers Name Role Phone Unavailable Primary Care Provider Unavailable Encounter Details Date Type Department Care Team Description 06/30/2009 Results Only [facility] Poll y, Bebeto Hartman MD Radiology Results [address] [place], [place] [id number] (Wo rk) Social History Tobacco Use Types Packs/Day Years Used Date Smoking Tobacco: Never Assessed Sex Assigned at Date Recorded Not on file documented as of this encounter Plan of Treatment Not on filedocumented as of this encounter Procedures Procedure Name Priority Date/Time Associated Diagnosis Comme nts MRI THORACIC Routine 06/30/2009 8:45 PM Result s for this SPINE W/O CONTRAST CDT procedure are in the results section. MRI CERVICAL Routine 06/30/2009 8:45 PM Result s for this SPINE W/O CONTRAST CDT procedure are in the results section. MRI LUMBAR SPINE Routine 06/30/2009 8:44 PM Re sults for this W/O CONTRAST CDT procedure are i n the results section. documented in this encounter Results MRI DORSAL (THORACIC) SPINE (06/30/2009 8:45 PM CDT) Anatomical Region Laterality Modality Other Specimen (Source) Anatomical Collection Method Collection Time Re ceived Time Location / / Volume Laterality 06/30/2009 8:45 PM CDT Impressions 07/01/2009 12:26 PM CDT MRI THORACIC SPINE WITHOUT CONTRAST ?8:45 PM HISTORY: Scoliosis. Evaluate for cord le sions. TECHNIQUE: Routine pulse sequences witho ut contrast. FINDINGS: Sagittal images demonstrate ri ghtward thoracic curvature but otherwise normal posterior alignment. Di sc spaces are preserved in height and water content. Bone marrow si gnal intensity is normal. The thoracic cord is normal in morphology an d signal characteristics. There is no evidence for any disc hernia tions. Paraspinal soft tissues unremarkable as visualized. IMPRESSION: Rightward thoracic scoliosis . No evidence for any intramedullary cord pathology. Bebeto Roth MD [employer] MRI CERV SPINE (06/30/2009 8:45 PM CDT) Anatomical Region Laterality Modality Other Specimen (Source) Anatomical Collection Method Collection Time Re ceived Time Location / / Volume Laterality 06/30/2009 8:45 PM CDT Impressions 07/01/2009 12:26 PM CDT MRI CERVICAL SPINE WITHOUT CONTRAST 06/30 8:45 PM HISTORY: Scoliosis. Evaluate for possibl e cord lesion. TECHNIQUE: Routine pulse sequences witho ut contrast. FINDINGS: Sagittal images demonstrate mi nimal rightward lateral curvature, otherwise normal posterior al ignment. There is no evidence for craniovertebral or cervicomedullary junction abnormality. The cervical cord is normal in morphology an d signal characteristics. No evidence for syrinx or any cord lesions. Disc spaces are preserved in height and water content. Bone marrow si gnal intensity is normal. The patient has prominent dorsal subcutaneou s fat at the cervicothoracic junction. C2-C3: Normal. C3-C4: Normal. C4-C5: Normal. C5-C6: Normal. C6-C7: Normal. C7-T1: Normal. IMPRESSION: 1. Minimal rightward lateral curvature. 2. No evidence for any craniovertebral j unction abnormalities or any intramedullary cord pathology. Bebeto Roth MD [employer]UDIES MRI LUMBAR SPINE (06/30/2009 8:44 PM CDT) Anatomical Region Laterality Modality Other Specimen (Source) Anatomical Collection Method Collection Time Re ceived Time Location / / Volume Laterality 06/30/2009 8:44 PM CDT Impressions 07/02/2009 11:22 AM CDT MRI LUMBAR SPINE WITHOUT CONTRAST ??June 30, 2009 8:44:00 PM HISTORY: Scoliosis. Evaluate for intraco rd lesions. TECHNIQUE: Sagittal T1 and STIR. Sagitta l T2 and axial dual echo T2. FINDINGS: Five lumbar vertebrae are assu med. There is not a high degree of disc dehydration at any lumbar level. There is thoracolumbar dextroscoliosis as well as some lumbar l evoscoliosis. There is mild nonspecific posterior subcutaneous edema , which may simply be dependent in nature. The tip of the conu s is at T12-L1. No congenital vertebral anomaly is identified. Findings by specific level: There is fac et degenerative change as follows: Mild left L2-L3. No disc hernia tion or stenosis is seen at any lumbar level. IMPRESSION: Scoliosis. Otherwise unremar kable. Bebeto Roth MD [employer] STUDIES documented in this encounter Visit Diagnoses Not on filedocumented in this encounter
--- OUTSIDE RECORDS SUMMARY | 2021-12-17 15:14 | XMS_ITS | Encounter Summary ---
:1980 Author Organization [place] Address [address] [facility] [place] [address] Care Team Providers Name Role Phone Unavailable Primary Care Provider Unavailable Encounter Details Date Type Department Care Team Description 05/18/2009 Office Visit-[facility] Candy Jensen Social History Tobacco Use Types Packs/Day Years Used Date Smoking Tobacco: Never Assessed Sex Assigned at Date Recorded Not on file documented as of this encounter Progress Notes Candy Jensen MD - 05/18/2009 4:00 PM CDT Employment Specialist: Candy Jensen Status: Final Encounter: 18 May 2009 Type: FM Visit Reason For Visit This 28 year patient presents for follow up, allergies, med check (has questions regarding two medications), and referral. PHQ2 completed and was negative Allergy List reviewed: Current Immunizations reviewed: Immunizations not in record requested that patient sign FRANKY for records. Pharmacy and Medication list reviewed with patient and was up to date. Allergies No Known Drug Allergy. Smoking Assessment No secondhand cigarette smoke exposure. No tobacco use. Current Meds Minocycline HCl 100 MG Capsule;TAKE 1 CAPSULE DAILY WITH FOOD.; Rx Calcium 600+D 600-400 MG-UNIT Tablet;TAKE 1 TABLET TWICE DAILY with meals; Rx. Active Problems No active problems in problem list. Vital Signs Recorded by jorge on 18 May 2009 03:59 PM BP:108/75, LUE, Sitting, HR: 111 b/min, L Radial, Resp: 16 r/min, Temp: 98.2 F, Oral, Weight: 151.2 lb. SOAP SUBJECTIVE: The patient is a 28-year-old female who is coming complaining of three problems. 1. She is having sneezing and runny nose day and night over the last few weeks. 2. She is having scoliosis in the back and that has been since she was a child. She feels that this is getting worse and she would like to see an orthopedic surgeon. 3. Acne, mostly on the chest and back as well as some on the face. The patient was given [id number] mg daily, she had been using it for one month and it seems this is helping a lot. OBJECTIVE: Vital signs are stable. Examination of the upper back and chest the acne looks 50% improved from her previous visit. The patient was told that it needs more time to improve and she agrees with that. Regarding her scoliosis she has severe scoliosis when she bends down. The patient needs to be seen by an orthopedic surgeon. Regarding her allergic rhinitis, examination of the head, neck and throat are clear. Nostrils have pale mucosa. EARS: TM's are clear. No lymphadenopathy in the head and neck area. ASSESSMENT/PLAN: 1.Regarding her acne I told her to continue the minocycline and this will take time. I did add RetinA acid that can be used daily. I told her to take precautions from using that and not expose her skin to the sun. I told her to use sun block on the face, back and chest when she is out. 2.Regarding her scoliosis I did a referral for her to go to an orthopedic surgeon. 3.Regarding her allergic rhinitis I started her on Flonase twice daily, Claritin once at night and saline spray in case she has some bleeding from her nose. I told her that the medication needs a few days to start working. The patient will follow-up for her acne in three months. Dictated by Candy Gutierrez M.D. Resident; ; ; ; mf. Orders Tretinoin 0.025 % Cream;APPLY SPARINGLY TO AFFECTED AREA(S) ONCE DAILY AT BEDTIME; Qty0; R3; Rx. Attending Note Patient reviewed and discussed with resident. Agree with Assessment and Plan of Care. Supervising Physician Jada Valdez Signature Signed By: Candy Jensen M.D.,Resident; 05/21/2009 3:59 PM FELLMONGERING MACHINE OPERATOR; Author. Signed By: Keri Elias M.D.; 05/25/2009 8:28 AM FELLMONGERING MACHINE OPERATOR; Author. documented in this encounter Plan of Treatment Not on filedocumented as of this encounter Visit Diagnoses Not on filedocumented in this encounter
--- OUTSIDE RECORDS SUMMARY | 2021-12-17 15:14 | XMS_ITS | Encounter Summary ---
:1980 Author Organization [place] Address [facility] [place] [address] Care Team Providers Name Role Phone Unavailable Primary Care Provider Unavailable Encounter Details Date Type Department Care Team Description 10/08/2009 Office Visit-[facility] Yuri Gray MD [address] [place], [place] [address] (Wo rk) Social History Tobacco Use Types Packs/Day Years Used Date Smoking Tobacco: Never Assessed Sex Assigned at Date Recorded Not on file documented as of this encounter Progress Notes Yuri Gray - 10/08/2009 4:00 PM CDT Distributor Sales Manager: Yuri Gray Status: Final Encounter: 08 Oct 2009 Type: Visit Reason For Visit This 29 year patient presents for follow up pre op. PHQ2 completed and was negative Allergy List reviewed: Current Immunizations reviewed: Up to date Pharmacy and Medication list reviewed with patient and was up to date.updated. PCS please remember to complete SMOKING assessment. Allergies No Known Drug Allergy. Smoking Assessment [...] TABLET EVERY MORNING NEEDED.; Rx Saline Nasal [place] 0.65 % Solution;USE 1 SPRAY IN EACH NOSTRIL TWICE DAILY.; Rx Tretinoin 0.025 % Cream;APPLY SPARINGLY TO AFFECTED AREA(S) ONCE DAILY AT BEDTIME.; Rx AAA-MED RECONCILE;per pt.; RPT. 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 Vital Signs Recorded by [email or web address] on 08 Oct 2009 04:07 PM BP:118/85, LUE, Sitting, HR: 94 b/min, L Radial, Normal, Temp: 98.3 F, Oral, Height: 61.5 in, Weight: 153.6 lb, BMI: 28.6 kg/m2. Recorded by [email or web address] on 08 Oct 2009 04:14 PM BP:121/82, LUE, Sitting. SOAP HPI This 29 year old female presents as an established patient of Dr. JONNY RUIZ,[facility] here to do some blood tests for her upcoming surgery. Patient was recently seen for her pre op and at that time she was without form for surgery and now surgery team is recommending additional lab tests which were not done at that time. Patient is having spinal fusion due to her scoliosis on 10/13/[address] Roth, see onte on 09/22/09 fordetails. Also would like to get something for possible yeast infection. Had yeast infection in the past and feels same- vaginal discharge with some itching. Would not like to have exam done. REVIEW OF SYMPTOMS: Constitutional: no fevers, night sweats or unintentional weight change Cardiovascular: no chest pain, palpitations, or pain with walking, no orthopnea or PND Respiratory: no dyspnea, cough, shortness of breath or wheezing Musculoskeletal: Details: see above Neuro: Details: see above PHYSICAL EXAMINATION: Vital signs: Reviewed and normal Constitutional: no distress, comfortable, pleasant Mental Status: Alert,oriented to person, place and time. Communicative and appropriate Psychological: appropriate mood Cardiovascular: regular rate and rhythm, no murmurs, rubs or gallops Respiratory: clear to auscultation, no wheezes or crackles, normal breath sounds Genitourinary: denied ASSESSMENT AND PLAN: 1. Additional lab tests: Patient had hgb done. Patient has no chronic major disorders. Per her preopform provided by orthopedic surgeon they requested CBC with diff, BMP, INR, UA with micro. WIll order as per form. Will fax results to [phone] as per patients wish. Patient denied genitourinary exam, was given one dose of fluconazole for possible yeast infection. Will see PCP after her surgery. Assessment Scoliosis (737.30) Orders Renew Fluticasone Propionate 50 MCG/ACT Suspension;USE 2 SPRAYS IN EACH NOSTRIL ONCE DAILY; Qty1; R4; Rx. Renew Loratadine 10 MG Tablet;TAKE 1 TABLET EVERY MORNING NEEDED; Qty30; R3; Rx. Fexofenadine HCl 180 MG Tablet;TAKE 1 TABLET DAILY; Qty30; R6; Rx. Renew Tretinoin 0.025 % Cream;APPLY SPARINGLY TO AFFECTED AREA(S) ONCE DAILY AT BEDTIME; Qty0; R3; Rx. Fluconazole 150 MG Tablet;TAKE 1 TABLET 1 TIME ONLY; Qty1; R0; Rx. Attending Note Patient reviewed and discussed with resident. Agree with Assessment and Plan of Care. Supervising Physician: Jada Valdez Signature Signed By: Yuri Gray MD,Resident; 10/09/2009 3:48 PM POSTBED STITCHER; Author. Signed By: Keri Elias M.D.; 10/09/2009 3:52 PM POSTBED STITCHER; Author. documented in this encounter Plan of Treatment Not on filedocumented as of this encounter Visit Diagnoses Not on filedocumented in this encounter
--- OUTSIDE RECORDS SUMMARY | 2021-12-17 15:14 | XMS_ITS | Encounter Summary ---
:1980 Author Organization [place] Address [facility] [place] [address] Care Team Providers Name Role Phone Unavailable Primary Care Provider Unavailable Encounter Details Date Type Department Care Team Description 10/08/2009 Historic Results INTERFACED REPORT Yuri Gray MD [address] [facility], [place] [address] (Wo rk) Social History Tobacco Use Types Packs/Day Years Used Date Smoking Tobacco: Never Assessed Sex Assigned at Date Recorded Not on file documented as of this encounter Plan of Treatment Not on filedocumented as of this encounter Procedures Procedure Name Priority Date/Time Associated Diagnosis Comme nts INR Routine 10/08/2009 4:44 PM Results f or this CDT procedure are i n the results section. BASIC METABOLIC Routine 10/08/2009 4:44 PM Result s for this PANEL CDT procedure are i n the results section. documented in this encounter Results (ABNORMAL) Basic metabolic panel (10/08/2009 4:44 PM CDT) P athologist Signature Sodium 145 (H) 133 - 144 MISYS mmol/L Potassium 3.4 3.4 - 5.3 MISYS mmol/L Chloride 107 94 - 109 MISYS mmol/L Carbon Dioxide 27 20 - 32 MISYS mmol/L Glucose 81 60 - 99 MISYS mg/dL Urea Nitrogen 11 5 - 24 MISYS mg/dL Creatinine 0.87 0.52 - MISYS 1.04 mg/dL Comment: New IDMS-traceable calibration beginning 06/14/07 GFR Estimate 78 >60 mL/min/1.7m2 MISYS GFR Estimate If Black >90 >60 mL/min/1.7m2 M ISYS Calcium 9.5 8.5 - 10.4 mg/dL MISYS Anion Gap 12 6 - 17 mmol/L MISYS Specimen Anatomical Collection Method Collection Time Receive d Time (Source) Location / / Volume Laterality 10/08/2009 4:44 PM 0 4:50 CDT PM CDT Yuri Gray MD LAB - BLOOD ORDERABLES Performing Organization Address City/State/[facility] Code Phon e Number MISYS INR (10/08/2009 4:44 PM CDT) P athologist Signature INR 0.95 0.86 - 1.14 MISYS Specimen Anatomical Collection Method Collection Time Receive d Time (Source) Location / / Volume Laterality 10/08/2009 4:44 PM 0 4:50 CDT PM CDT Yuri Gray MD LAB - BLOOD ORDERABLES Performing Organization Address City/State/ZIP Code Phon e Number MISYS documented in this encounter Visit Diagnoses Not on filedocumented in this encounter
--- OUTSIDE RECORDS SUMMARY | 2021-12-17 15:14 | XMS_ITS | Encounter Summary ---
:1980 Author Organization [place] Address [address] [facility] [place] [address] Care Team Providers Name Role Phone Unavailable Primary Care Provider Unavailable Encounter Details Date Type Department Care Team Description 10/11/2009 Historic Results Orthopaedic Clinic Bebeto Roth [place] Renzo Hartman MD [place] [address], [address] [place] [id number] [address] [address] [place], [place] [address] Social History Tobacco Use Types Packs/Day Years Used Date Smoking Tobacco: Never Assessed Sex Assigned at Date Recorded Not on file documented as of this encounter Plan of Treatment Not on filedocumented as of this encounter Procedures Procedure Name Priority Date/Time Associated Comments Diagnosis CROSSMATCH RED CELLS Routine 10/11/2009 9:21 AM R esults for this CDT procedure are i n the results section. documented in this encounter Results Crossmatch red cells (10/11/2009 9:21 AM CDT) [facility] Method Time Signature ABO O MISYS RH(D) Pos MISYS Antibody Neg MISYS Screen Blood Red Cells MISYS Component Type Units Ordered 2 MISYS Specimen 10/14/2009 MISYS Expires Unit Number [id number] MISYS Blood Red Blood MISYS Component Cells Type Leukocyte Reduced Status of No longer MISYS Unit available 10/15/2009 0300 Unit Number [id number] MISYS Blood Red Blood MISYS Component Cells Type Leukocyte Reduced Status of No longer MISYS Unit available 10/15/2009 0300 Specimen Anatomical Collection Method Collection Time Receive d Time (Source) Location / / Volume Laterality 10/11/2009 9:21 AM 0 9:17 CDT AM CDT Bebeto Roth MD LAB - BLOOD BANK PRODUCT ORD ER Performing Organization Address City/State/ZIP Code Phon e Number MISYS documented in this encounter Visit Diagnoses Not on filedocumented in this encounter
--- OUTSIDE RECORDS SUMMARY | 2021-12-17 15:14 | XMS_ITS | Encounter Summary ---
:1980 Author Organization [place] Address [address] [place] [address]. [place] [address] Care Team Providers Name Role Phone Unavailable Primary Care Provider Unavailable Encounter Details Date Type Department Care Team Description 07/01/2009 Office Visit-[facility] Orthopaedic Clinic Bebeto Roth MD [address], [id number] [place] [phone] Social History Tobacco Use Types Packs/Day Years Used Date Smoking Tobacco: Never Assessed Sex Assigned at Date Recorded Not on file documented as of this encounter Progress Notes Bebeto Roth - 07/01/2009 10:24 AM CDT Telephone Station Repairer: Bebeto Roth Status: Final - Signature Encounter: 01 Jul 2009 Type: U Ortho Letter Department of Orthopaedic Surgery Administration: Suite [facility], [address] [place] [phone] or [phone] Appointments [email or web address] Mail Address: [place] [address], [address] [place] [address] Shmuel Ruiz MD General Orthopaedics Marcella Wilson MD Hand, Wrist, Elbow Quyen Simms MD Sports Medicine - Knee Adult Reconstruction - Knee Clem Bower MD Shoulder Georgi Cross MD Oncology and Adult Reconstruction Aba Burgos MD Oncology Martin Sheffield MD Professor Emeritus Evan Guzmán MD, PhD Shoulder/Sports Medicine Katheryn MustafaPFlaquitaMFlaquita Foot and Ankle Neo Mccord MD Joint Preservation, Resurfacing, and Replacement Young Adult Hip & Knee Shoaib Thomas MD Sports Medicine, Shoulder Gurwinder Rockwell MD Foot and Ankle Bebeto Roth Jr., MD Spine John Garcia MD Hand/Trauma Georgi Murdock MD Spine Katheryn VillatoroPFlaquitaM. Podiatry Clem Samano MD Spine Edgar Ojeda MD Trauma Wilton German MD Oncology and Adult Reconstruction Melvi Zapata MD Hand/Pediatric Quincy Meek MD Pediatric July 01, [address] [facility] [place] [address] RE: Azul Boston : DOS: July 01, 2009 Dear Azul: I had the opportunity to review your MRI reports and the images. There is no evidence of any significant problems within the spinal cord. This is all a good sign. The scoliosis is present as we expected, and there are some mild facet changes or degenerative process in the region of the apex of your spinal deformity. I think that the plan is as we outlined in clinic, and that we can proceed with this at a time frame that works for you. Sincerely, Bebeto Roth M.D. Professor Chief of Spine Service DP:11 cc: Candy Jensen MD, Resident [facility] [address] [place] [address] Electronically signed by:Bebeto Roth M.D. Jul 08 2009 9:14AM CLAIM REPRESENTATIVE documented in this encounter Plan of Treatment Not on filedocumented as of this encounter Visit Diagnoses Not on filedocumented in this encounter
--- OUTSIDE RECORDS SUMMARY | 2021-12-17 15:14 | XMS_ITS | Encounter Summary ---
:1980 Author Organization [place] Address [facility] [place] [address] Care Team Providers Name Role Phone Unavailable Primary Care Provider Unavailable Encounter Details Date Type Department Care Team Description 06/30/2009 Office Visit-[facility] Orthopaedic Clinic Unknown, Provider [facility] 1st Floor, [address] [facility] [place] [phone] Social History Tobacco Use Types Packs/Day Years Used Date Smoking Tobacco: Never Assessed Sex Assigned at Date Recorded Not on file documented as of this encounter Progress Notes Unknown, Provider - 06/30/2009 8:19 AM CDT Binder Coverstitch: Rhonda Bush Status: Final - Signature Encounter: 30 Jun 2009 Type: U Ortho [place] Note Fax received from [employer] for Approval on Fusion of Spine Lumbar surgery. Code [id number] Electronically signed by:Rhonda Bush Jun 30 2009 8:20AM WELDER FITTER GAS Administrative documented in this encounter Plan of Treatment Not on filedocumented as of this encounter Visit Diagnoses Not on filedocumented in this encounter
--- OUTSIDE RECORDS SUMMARY | 2021-12-17 15:14 | XMS_ITS | Encounter Summary ---
:1980 Author Organization [place] Address [address] [facility] [place] [address] Care Team Providers Name Role Phone Unavailable Primary Care Provider Unavailable Encounter Details Date Type Department Care Team Description 10/12/2009 Historic Notes INTERFACED REPORT Interface, Transcript on, Social History Tobacco Use Types Packs/Day Years Used Date Smoking Tobacco: Never Assessed Sex Assigned at Date Recorded Not on file documented as of this encounter Progress Notes Interface, Overlock Elastic Attacher - 04/30/2010 8:57 PM CDT General Information - How to be Addressed Azul Health and Illness - Reason for visit as scoliosis Stated by Patient Role Relationships/Living Environment - Lives With spouse; children - Living Arrangements condo - Home Accessibility stairs (1 railing present); stairs to enter home; pt states between 5-10 stairs to enter, no stairs once inside Review of Systems - Ambulation 0 - Independent with ambulation - Transferring 0 - Independent with transfers - Toileting 0- Independent with toileting - Bathing 0- Independent with bathing - Dressing 0- Independent with dressing - Eating 0- Independent with eating - Swallowing no swallowing issues reported - Communication/speech no speech or language problems - Fall history within No history of falls last six months - Which of the above none functional risks had a recent onset or change? - Immune /Infections none - Influenza vaccine N/A; Not currently flu season (05/14 - 11/12) - Pneumococcal Vaccine never immunized - Pneumococcal Vaccine none of the above indications Indications - offer year round (Check all that apply) Learning Assessment - Factors Influencing anxiety; pain Readiness to Learn - Factors that Impact none Ability to Learn - Learning Preferences individual instruction - Cultural none Considerations - Developmental none Considerations - Mosque none Considerations Signatures TAYLOR YAZAN (PT)[Signed 09:16] Authored: General Information, Role Relationships/Living Environment EZRA HERNANDEZ (RN)[Signed 19:02] Authored: Health and Illness, Review of Systems, Learning Assessment Interface, Overlock Elastic Attacher - 04/30/2010 8:57 PM CDT Progress Note - :: focus: Admit D: Pt arrived to the unit at 17:00. Fully awake, alter, oreinted. Rates pain to back at 6/10. CMS intact, pt has good sensation, strength and pedal pulses. VSS, sats 98% on RA. Pt is very anxious, many questions, emotions labile, c/o nausea - she has dry heaves. She is afraid to use BUSINESS ANALYST as she states she once overdosed on tyelol by accident because she misread the dosage on the bottle, she is very fearful of getting too much pain medication. Also, many concerns about surgery, nerves, etc. BUSINESS ANALYST and IVF infusing to L hand. Incision to back is CDI. [place] patent. PCDs in place. BS hypoactive, ice only for now. LS clear. Mother and two son's were here to visit. - :: I/A: Gave zofran for nausea, valium for anxiety and muscle spasms - pain improved, but anxiety and nausea not. Called MD, gave ativan and compazine with effect. Educated pt on use of BUSINESS ANALYST and reassured and explain how OD is not possible. Cooling blanket placed under pt per Dr. Roth's request. - :: P: Continue to monitor sats hourly x 24 hours. Continue to monitor nausea, anxiety, and post op status. Signatures EZRA HERNANDEZ (KENNY)[Signed 20:46] Authored: Progress Note documented in this encounter Plan of Treatment Not on filedocumented as of this encounter Visit Diagnoses Not on filedocumented in this encounter
--- OUTSIDE RECORDS SUMMARY | 2021-12-17 15:15 | XMS_ITS | Encounter Summary ---
:1980 Author Organization [place] Address formerly [facility] [place] [address] Care Team Providers Name Role Phone Unavailable Primary Care Provider Unavailable Encounter Details Date Type Department Care Team Description 04/07/2009 Results Only RESULTS Jules Varela Social History Tobacco Use Types Packs/Day Years Used Date Smoking Tobacco: Never Assessed Sex Assigned at Date Recorded Not on file documented as of this encounter Plan of Treatment Not on filedocumented as of this encounter Procedures Procedure Name Priority Date/Time Associated Diagnosis Comme nts HCL PAP THIN LAYER Routine 04/07/2009 12:00 AM Re sults for this SCREEN AWNING HANGER SUPERVISOR procedure are i n the results section. documented in this encounter Results A THIN LAYER PAP SCREEN (04/07/2009 12:00 AM AWNING HANGER SUPERVISOR) Component Value Ref Test Analysis Performed At [facility] Range Method Time Signature PAP NIL COPATH Copath Report COPATH Patient Name: AZUL FORRESTER MR#: [id number] Specimen #: [id number] Collected: 04/07/2009 Received: 04/08/2009 Reported: 04/09/2009 11:39 Ordering Phy(s): JULES CAMPUZANO SPECIMEN/STAIN PROCESS: Pap thin layer prep screening ([facility]) ? Pap-Cyto x 1, Digene Reflex HPV x 1 SOURCE: Cervical ---- Pap thin layer prep screening ([facility]) SPECIMEN ADEQUACY: Satisfactory for evaluation. -Transformation zone component present. CYTOLOGIC INTERPRETATION: Negative for Intraepithelial Lesion or Malignancy Electronically signed out by: APOLLO Moulton (ASCP) Processed and screened at [facility] diane [facility] CLINICAL HISTORY: LMP: 03/30/09 TESTING LAB LOCATION: [facility], [address] ??[phone] COLLECTION SITE: Client: ??[facility] Location: [facility] (B) Specimen (Source) Anatomical Collection Method Collection Time Re ceived Time Location / / Volume Laterality 04/07/2009 04/08/2009 10:1 0 AM AWNING HANGER SUPERVISOR Jules Campuzano LABORATORY Performing Organization Address City/State/ZIP Code Phon e Number COPATH documented in this encounter Visit Diagnoses Not on filedocumented in this encounter
--- OUTSIDE RECORDS SUMMARY | 2021-12-17 15:15 | XMS_ITS | Encounter Summary ---
:1980 Author Organization [place] Address [address] [facility] [place] [address] Care Team Providers Name Role Phone Unavailable Primary Care Provider Unavailable Encounter Details Date Type Department Care Team Description 04/07/2009 Historic Results INTERFACED REPORT Candy Jensen Social History Tobacco Use Types Packs/Day Years Used Date Smoking Tobacco: Never Assessed Sex Assigned at Date Recorded Not on file documented as of this encounter Plan of Treatment Not on filedocumented as of this encounter Procedures Procedure Name Priority Date/Time Associated Comments Diagnosis NEISSERIA GONORRHOEAE Routine 04/07/2009 3:27 PM Results for this PCR COMPLIANCE ATTORNEY procedure are i n the results section. HIV 1 AND 2 ANTIBODY Routine 04/07/2009 3:27 PM R esults for this ([facility]) COMPLIANCE ATTORNEY procedure are i n the results section. HEPATITIS C ANTIBODY Routine 04/07/2009 3:27 PM R esults for this COMPLIANCE ATTORNEY procedure are i n the results section. HEPATITIS B SURFACE Routine 04/07/2009 3:27 PM Re sults for this ANTIBODY COMPLIANCE ATTORNEY procedure are i n the results section. HEPATITIS B SURFACE Routine 04/07/2009 3:27 PM Re sults for this ANTIGEN COMPLIANCE ATTORNEY procedure are i n the results section. CHLAMYDIA TRACHOMATIS Routine 04/07/2009 3:27 PM Results for this PCR COMPLIANCE ATTORNEY procedure are i n the results section. documented in this encounter Results Chlamydia trachomatis PCR (04/07/2009 3:27 PM COMPLIANCE ATTORNEY) Component Value Ref Test Analysis Performed At [facility] Range Method Time Signature Specimen Cervical MISYS Description Chlamydia Negative for C. MISYS Trachomatis PCR trachomatis rRNA by inspector finishing mediated amplification. Comment: A negative result by inspector finishing medi ated amplification does not preclude the presence of C. trachomatis infection be cause results are dependent on proper and adequate collection, absence of inh ibitors, and sufficient rRNA to be detected. Specimen Anatomical Collection Method Collection Time Receive d Time (Source) Location / / Volume Laterality 04/07/2009 3:27 PM 0 3:32 COMPLIANCE ATTORNEY PM COMPLIANCE ATTORNEY Candy Jensen LAB - MICRO GENERAL ORDERABL ES Performing Organization Address [facility] Code Phon e Number MISYS Neisseria gonorrhoeae PCR (04/07/2009 3:27 PM COMPLIANCE ATTORNEY) [facility] Method Time Signature Specimen Cervical MISYS Descrip N Gonorrhea Negative for N. MISYS PCR gonorrhoeae rRNA by inspector finishing mediated amplification. Comment: A negative result by inspector finishing medi ated amplification does not preclude the presence of N. gonorrhoeae infection be cause results are dependent on proper and adequate collection, absence of inh ibitors, and sufficient rRNA to be detected. Specimen Anatomical Collection Method Collection Time Receive d Time (Source) Location / / Volume Laterality 04/07/2009 3:27 PM 0 3:32 COMPLIANCE ATTORNEY PM COMPLIANCE ATTORNEY Candy Jensen LAB - MICRO GENERAL ORDERABL ES Performing Organization Address [facility] Phon e Number MISYS Hepatitis B surface antibody (04/07/2009 3:27 PM COMPLIANCE ATTORNEY) athologist Signature Hep B Surface 993.0 MISYS Leatha Comment: Positive, Patient is considered to be im mune to infection with hepatitis B when the value is greater than or equal to 1 2.0 mlU/mL. Specimen Anatomical Collection Method Collection Time Receive d Time (Source) Location / / Volume Laterality 04/07/2009 3:27 PM 0 3:32 COMPLIANCE ATTORNEY PM COMPLIANCE ATTORNEY Candy Odellkell Howard LAB - BLOOD ORDERABLES Performing Organization Address [facility]/ZIP Code Phon e Number MISYS Hepatitis B surface antigen (04/07/2009 3:27 PM COMPLIANCE ATTORNEY) athologist Signature Hep B Surface Negative NEG MISYS Agn Specimen Anatomical Collection Method Collection Time Receive d Time (Source) Location / / Volume Laterality 04/07/2009 3:27 PM 0 3:32 COMPLIANCE ATTORNEY PM COMPLIANCE ATTORNEY Candy Esther Christenboodaniella LAB - BLOOD ORDERABLES Performing Organization Address [facility] Phon e Number MISYS Hepatitis C antibody (04/07/2009 3:27 PM COMPLIANCE ATTORNEY) athologist Signature Hepatitis C Negative NEG MISYS Antibody Specimen Anatomical Collection Method Collection Time Receive d Time (Source) Location / / Volume Laterality 04/07/2009 3:27 PM 0 3:33 COMPLIANCE ATTORNEY PM COMPLIANCE ATTORNEY Candy Jensen LAB - BLOOD ORDERABLES Performing Organization Address [facility] Phon e Number MISYS HIV 1 and 2 Antibody (04/07/2009 3:27 PM COMPLIANCE ATTORNEY) athologist Signature HIV 1&2 Negative NEG MISYS Antibody Specimen Anatomical Collection Method Collection Time Receive d Time (Source) Location / / Volume Laterality 04/07/2009 3:27 PM 0 3:33 COMPLIANCE ATTORNEY PM COMPLIANCE ATTORNEY Candy Worthyaj LAB - BLOOD ORDERABLES Performing Organization Address [facility] Phon e Number MISYS documented in this encounter Visit Diagnoses Not on filedocumented in this encounter
--- NOTE | 2021-12-17 16:00 | CRLHL7_ITS ---
For Patients: As a result of the Century Cures Act, medical imaging exams and procedure reports are released immediately into your electronic medical record. You may view this report before your referring provider. If you have questions, please contact your health care provider. INDICATION: gestational diabetes TECHNIQUE: Real time carson scale imaging of the fetus was performed. COMPARISON: 07/06/2021 FINDINGS: Sonographic imaging demonstrates a single living intrauterine gestation. Fetus demonstrates a regular cardiac rate of 152 beats per minute. Fetus has a vertex position. The placenta lies left posterior. Amniotic fluid volume appears normal and there is a single deepest pocket of 6.5 cm. The estimated weight is 2176gm which lies at the 56th %. BPD 29th percentile. HC 31st percentile. AC 85th percentile. FL 19th percentile. The fetus was active and demonstrated normal breathing movements. There was normal flexion and extension of the trunk and extremities. IMPRESSION: Normal biophysical profile score 8/8. Sonographic gestational age 33 weeks 1 day and sonographic due date 02/03/2022. Good correlation with dates. Normal interval growth. Estimated weight 56th percentile. Abdominal circumference 85th percentile. Dictated by Bebeto Kennedy MD @ 12/17/2021 4:23:24 PM (Electronically Signed)
== END 2021-12-17 15:04 | disposition home or self-care (01) ==
LOC: US 15:04
PROVIDERS: Visit Provider Physician Assistant
DX: O24.419 Gestational diabetes mellitus in pregnancy, unspecified control (principal); Z3A.33 33 weeks gestation of pregnancy
CPT/HCPCS: 76816; 76819

== ENCOUNTER 2021-12-22 08:36 | Outpatient (CLI) | payer OTHER, SELFPAY ==
--- OUTSIDE RECORDS SUMMARY | 2021-12-22 08:38 | XMS_ITS | Encounter Summary ---
:1980 Author Organization [place] Address [address] [facility] [place] [address] Care Team Providers Name Role Phone Bebeto Roth MD Unavailable Astrid Rios PA-C Unavailable Francisco Metz MD Primary Care Provider [phone] Francisco Metz MD Unavailable [phone] Kenton Katz MD Unavailable Unavailable Karen Veliz DO Primary Care Provider Kenton Katz MD Unavailable Unavailable Karen Veliz DO Unavailable Reason for Visit Reason Onset Date Comments Referral 12/25/2019 Encounter Details Date Type Department Care Team Description 12/25/2019 Telephone [facility] Francisco Metz, Referral Jr RUIZ [address] [place] [address] 2019 [facility] [address] [place] [address] [place], [place] [address] [phone] Social History Tobacco Use Types Packs/Day Years [...] referral. Would like it dated for 10/14/19 ER Telephone Encounter - Cherry Viera - 12/26/2019 12:49 PM CST Will forward to PCP to address. Please advise. Cherry Reyes Product Development Scientist ER Telephone Encounter - RachelMay - 12/25/2019 3:35 PM CST [facility] Family Medicine phone call message - order or referral request from patient: Order or referral being requested: Referral to Physical Therapy At Location: [facility] Additional Details: KENNY Weems states this patient needs a referral for outpatient physical therapy at their location from her primary doctor here. She hasn't had any OB care here and she states that this is the only location she can see her receiving care. Faustina states the patient has attended 10/13 and 10/27. Patient no showed 11/10 Referral only -Specialty Physical Therapy Location [address] [address] [place] to leave a message on voice mail? Yes Primary language: Greek Filling Carrier needed? No Call taken on December 25, 2019 at 3:35 PM by May Rachel Order request route to P SMI TRIAGE Referrals Route to P SMI (Green/[place]/Purple) [facility] ER documented in this encounter Plan of Treatment Not on filedocumented as of this encounter Visit Diagnoses Not on filedocumented in this encounter Care Teams Sap Portal Developer Relationship Specialty Start Date End Date Francisco Metz PCP - General Family Practice 11/14/18 04/02/20 MD Stevie Karen Veliz PCP - General Family Medicine 04/03/[address] [place] [address] Bebeto Roth MD Orthopedics 07/09/14 [facility] [place] [address] Astrid Rios PA-C Physician Internal Combustion Engine Inspector Physician Internal Combustion Engine Inspector - 07/09/14 Surgical Francisco Metz Assigned PCP 07/04/19 02/01/20 MD Stevie 2019 [place] [address] Kenton Katz Assigned PCP 02/02/20 08/27/20 MD Feliberto NO INFO AVAILABLE Kenton Katz Assigned Endocrinology 08/28/20 07/23/21 MD Felibetro Provider NO INFO AVAILABLE Karen Veliz, Assigned PCP 08/28/20 DO 2019 [address] [place], [place] [id number] documented as of this encounter
--- OUTSIDE RECORDS SUMMARY | 2021-12-22 08:38 | XMS_ITS | Encounter Summary ---
:1980 Author Organization [place] Address [address] [place] [address]. [place] [address] Care Team Providers Name Role Phone Bebeto Roth MD Unavailable Astrid Rios PA-C Unavailable Francisco Metz MD Primary Care Provider [phone] Francisco Metz MD Unavailable [phone] Encounter Details Date Type Department Care Team Description 01/15/2020 Medical Correspondence [facility] Scan, ENDOCRINOLOGY Health Info Mgmt Non-Provider REFERRAL NO [facility] AND [address] [address] Social History Tobacco Use Types [...] on filedocumented in this encounter Care Teams Real Estate Legal Assistant Relationship Specialty Start Date End Date Francisco Metz PCP - General Family Practice 11/14/18 04/02/20 MD Stevie Bebeto Roth MD Orthopedics 07/09/[address] [place], [place] [address] Astrid Rios PA-C Physician Retail Selling Specialist Physician Retail Selling Specialist - 07/09/14 Surgical Francisco Metz Assigned PCP 07/04/19 02/01/20 MD Stevie 2019 [place] [address] documented as of this encounter
--- OUTSIDE RECORDS SUMMARY | 2021-12-22 08:38 | XMS_ITS | Encounter Summary ---
:1980 Author Organization [place] Address [address] [facility] [place] [address] Care Team Providers Name Role Phone Bebeto Roth MD Unavailable Astrid Rios PA-C Unavailable Kenton Katz MD Unavailable Unavailable Karen Veliz DO Primary Care Provider Encounter Details Date Type Department Care Team Description 07/11/2020 Records - [facility] CONVERSION Provider, Histor ical Social History Tobacco [...] on filedocumented in this encounter Care Teams Records Management Specialist Relationship Specialty Start Date End Date Karen Veliz DO PCP - General Family Medicine 04/03/[address] [place] [address] Bebeto Roth MD Orthopedics 07/09/[address] [place] [address] Astrid Rios PA-C Physician Lean Manufacturing Specialist Physician Lean Manufacturing Specialist - 07/09/14 Surgical Kenton Katz Assigned PCP 02/02/20 08/27/20 MD Feliberto NO INFO AVAILABLE documented as of this encounter
--- OUTSIDE RECORDS SUMMARY | 2021-12-22 08:38 | XMS_ITS | Clinical Summary ---
:1980 Author Organization [place] Address [address] [facility] [place] [address] Care Team Providers Name Role Phone Bebeto Roth MD Unavailable Astrid Rios PA-C Unavailable Karen Veliz DO Primary Care Provider Karen Veliz DO Unavailable Allergies Active Allergy Reactions Severity Noted Date Comments Seasonal Allergies 10/04/2011 Medications Medication Sig Dispensed Refills Start Date End Date Status fluticasone (FLONASE) 50 [place] 1-2 sprays 16 g 3 07/06/19 18 [...] be differe nt from the original. [email or web address] Problem Noted Date S/P spinal fusion 10/23/2017 Frequent UTI 12/14/2016 Anemia, iron deficiency 12/14/2016 Pain in thoracic spine 08/07/2014 Other orthopedic aftercare(V54.89) 08/07/2014 Grief 03/13/2014 Overview: Pt's boyfriend of heroin overdose d ay after 2013. Seeing [facility] for therapy Dermatofibroma of left thigh 11/22/2012 Health Longterm 12/19/2011 Overview: Tier 0 DX V65.8 REPLACED WITH [id number] (05/21/2012) Anxiety 12/19/2011 Congenital scoliosis 12/19/2011 Scoliosis [...] OB PROVIDERS 1.Keri Elias 2. Eva Hogan ([phone]) CARE PLAN ?? Consults: ?? Ultrasounds: 08/03/16 [...] Comments Blood Pressure 94/56 02/18/2019 7:21 PM HUMAN RELATIONS PROFESSOR Pulse 56 02/18/2019 7:21 PM HUMAN RELATIONS PROFESSOR Temperature 36.9 ??C (98.4 ??F) 02/18/2019 3:50 PM HUMAN RELATIONS PROFESSOR Respiratory Rate 16 02/18/2019 7:21 PM HUMAN RELATIONS PROFESSOR Oxygen Saturation 94% 02/18/2019 7:21 PM HUMAN RELATIONS PROFESSOR Inhaled Oxygen Concentration - - Weight 73.5 kg (162 lb) 02/18/2019 3:50 PM HUMAN RELATIONS PROFESSOR Height 160 cm (5' 3) 04/18/2018 8:42 AM HUMAN RELATIONS PROFESSOR Body Mass Index 28.7 04/18/2018 8:42 AM HUMAN RELATIONS PROFESSOR Plan of Treatment Health Maintenance Due Date [...] 64 Years) Medical Devices Implanted Type Area Panel Edge Painter Device Shelf Model / Serial Identifier Expiration / Lot Date Graft Bone Crush Canc 30ml [id number] Bone/Tissu N/A: Spine MUSCULOSKELET AL 08/28/2020 [id number] / Implanted: Qty: 1 on 10/23/2017 by Bebeto Roth MD at [facility] e/Biologic Thoracic HANSEN [id number] / Imp Scr Danek Legacy Breakoff Set 5.5mm Ti [id number] Metallic N/A: Spine MEDTRONIC, [id number] / Implanted: Qty: 5 on 10/23/2017 by Bebeto Roth MD at [facility] Hardware/A Thoracic INC-DANEK / nchor Axial Posey N/A: Spine MEDTRONIC [id number] / Implanted: Qty: 2 on 10/23/2017 by Bebeto Roth MD at [facility] Thoracic INC-DANEK / Explanted Type Area Panel Edge Painter Device Shelf Model / Identifier Expiration Serial / Date Lot 5 Set Screws N/A: Spine Explanted: Qty: 1 on 10/23/2017 at [facility] Thoracic Insurance Payer Benefit Plan / Subscriber ID Effective Phone Address [facility] [id number] 2016-Pres [phone] [address] HMO ADVANTAGE ent [address] [place] [address] [place] (Home) [place] [address] [address] [place] Personal/Family Self [address] [place] (Home) [place] [address] [address] [place] Third Constitution Party Self 1980 [address] (Home) [place] [address] Advance Directives For more information, please contact: [phone] Latest Code Status on File Code Status Date Activated Date Inactivated Comments Full Code 10/25/2017 10:23 AM 10/27/2017 8:35 AM Code Status History Code Status Date Activated Date Inactivated Comments Full Code 10/23/2017 2:18 PM 10/25/2017 10:23 AM Full Code 03/05/2017 11:49 AM 10/23/2017 2:18 PM Care Teams Parks Worker Relationship Specialty Start Date End Date Karen Veliz DO PCP - General Family Medicine 04/03/202019 [place] [address] Bebeto Roth MD Orthopedics 07/09/[address] [place] [address] Astrid Rios PA-C Physician Black Top Machine Operator Physician Black Top Machine Operator - 07/09/14 Surgical Karen Veliz DO Assigned PCP 08/28/202019 [place] [address]
--- OUTSIDE RECORDS SUMMARY | 2021-12-22 08:38 | XMS_ITS | Encounter Summary ---
:1980 Author Organization [place] Address [address] [facility] [place] [address] Care Team Providers Name Role Phone Bebeto Roth MD Unavailable Astrid Rios PA-C Unavailable Kenton Katz MD Unavailable Unavailable Karen Veliz DO Primary Care Provider Encounter Details Date Type Department Care Team Description 07/11/2020 Records - [facility] CONVERSION Provider, Histor ical Social History [...] on filedocumented in this encounter Care Teams Assembler Liquid Center Relationship Specialty Start Date End Date Karen Veliz DO PCP - General Family Medicine 04/03/[address] [place] [address] Bebeto Roth MD Orthopedics 07/09/[address] [place] [address] Astrid Rios PA-C Physician Tenter Physician Tenter - 07/09/14 Surgical Kenton Katz Assigned PCP 02/02/20 08/27/20 MD Feliberto NO INFO AVAILABLE documented as of this encounter
--- OUTSIDE RECORDS SUMMARY | 2021-12-22 08:38 | XMS_ITS | Encounter Summary ---
:1980 Author Organization [place] Address [address] [facility] [place] [address] Care Team Providers Name Role Phone Bebeto Roth MD Unavailable Astrid Rios PA-C Unavailable Francisco Metz MD Primary Care Provider [phone] Francisco Metz MD Unavailable [phone] Reason for Visit Reason Comments Consult Diabetes Encounter Details Date Type Department Care Team Description 01/23/2020 Virtual Visit [facility] Kenton Katz Diet controlled [place] Endocrinolog y MD Feliberto gestational diabetes [address] [facility] NO INFO mellitus (GDM) in [place], [place] AVAILABLE third trimester [id number] (Primary Dx) [phone] Social History Tobacco Use Types Packs/Day Years [...] contact Unable to assess 01/23/2020 7:04 AM ROTARY FILTER OPERATOR with someone who was confirmed or suspected [...] soon as the diagnosis of is made. RY FILTER OPERATOR documented in this encounter Progress Notes Kenton Katz - 01/23/2020 1:00 PM CST Azlu Garg is a 39 year old female [...] would you like to be contacted at? [phone] How would you like to obtain your [...] not been able to meet with a ict programmer yet. Her fiancee had COVID and she [...] [place] [id number] as an E & M code Kenton Katz M.D CC: Dr Loyola Francisco [address] [address] RY FILTER OPERATOR Kristina Denise CMA - 01/23/2020 1:00 PM CST Copy of OV note mailed as requested to: Dr Loyola Francisco [facility] [address] [place] [address] RY FILTER OPERATOR documented in this encounter Plan of Treatment Not on filedocumented as of this encounter Visit Diagnoses Diagnosis Diet controlled gestational diabetes callum litus (GDM) in third trimester - Primary documented in this encounter Care Teams Auricular Detoxification Specialist Relationship Specialty Start Date End Date Francisco Metz PCP - General Family Practice 11/14/18 04/02/20 MD Stevie Bebeto Roth MD Orthopedics 07/09/[address] [facility] [place] [address] Astrid Rios PA-C Physician Urban And Regional Planner Physician Urban And Regional Planner - 07/09/14 Surgical Francisco Metz Assigned PCP 07/04/19 02/01/20 MD Stevie [address] [place] [address] documented as of this encounter
--- OUTSIDE RECORDS SUMMARY | 2021-12-22 08:38 | XMS_ITS | Encounter Summary ---
:1980 Author Organization [place] Address [address] [facility] [place] [address] Care Team Providers Name Role Phone Bebeto Roth MD Unavailable Astrid Rios PA-C Unavailable Kenton Katz MD Unavailable Unavailable Karen Veliz DO Primary Care Provider Encounter Details Date Type Department Care Team Description 07/12/2020 Records - [facility] CONVERSION Provider, Histor ical Social History Tobacco [...] 12:00 AM Result s for this VIEWS DINING SERVICES DIRECTOR procedure are i n the results section. documented in this encounter Results XR Knee Left 3 Views (03/10/2006 12:00 AM DINING SERVICES DIRECTOR) Anatomical Region Laterality Modality Thigh, Knee, Leg Left Other Specimen (Source) Anatomical Location Collection Method / Collectio n Time Received Time / Laterality Volume Narrative 03/10/2006 12:00 AM DINING SERVICES DIRECTOR See Historical Hospital Medical Record f or documentation Procedure Note Provider, Historical - 07/12/2020Formatt ing of this note might be different from the original. See Historical Hospital Medical Record f or documentation Historical Provider IMG DIAGNOSTIC IMAGING ORDER TAYLOR documented in this encounter Visit Diagnoses Not on filedocumented in this encounter Care Teams Laboratory Mechanic Helper Relationship Specialty Start Date End Date Karen Veliz DO PCP - General Family Medicine 04/03/[address] [place] [address] Bebeto Roth MD Orthopedics 07/09/[address] [place] [address] Astrid Rios PA-C Physician Internal Combustion Engine Inspector Physician Internal Combustion Engine Inspector - 07/09/14 Surgical Kenton Katz Assigned PCP 02/02/20 08/27/20 MD Feliberto NO INFO AVAILABLE documented as of this encounter
--- OUTSIDE RECORDS SUMMARY | 2021-12-22 08:38 | XMS_ITS | Encounter Summary ---
:1980 Author Organization [place] Address [address] [facility] [place] [address] Care Team Providers Name Role Phone Bebeto Roth MD Unavailable Astrid Rios PA-C Unavailable Francisco Metz MD Primary Care Provider [phone] Francisco Metz MD Unavailable [phone] Reason for Visit Reason Onset Date Comments Referral 10/03/2019 [facility] Encounter Details Date Type Department Care Team Description 10/03/2019 Telephone [facility] Francisco Metz Referral ( [facility] MD Stevie [facility]) [address], [address] [place] [phone] (Wo rk) Social History Tobacco Use Types [...] would need to ok authorization, reference # [id number]. This authorization that was entered on 09/19/19 [...] enter referral/auth online with [facility]. Marli Gonzales Blind Escort Telephone Encounter - Marli Gonzales - 10/09/2019 9:56 AM CDT 10/07/19 Attempted to reach Marium at [place], Left message on voicemail. 10/09/19 Left message on [facility] voicemail. Marli Gonzales Blind Escort Telephone Encounter - Lisa Ventura - 10/03/2019 10:44 AM CDT [facility] Family Medicine phone call message - order or referral request from patient: Order or referral being requested: [facility]erral to: [facility] At Location: [place], [place] Additional Details: Marium calling from [facility] and [facility] to advise that [facility] denied their claim for patient's visit with them on 08/14/19. Marium advised that per [facility], an authorization request was sent to [facility] (by [facility]) authorizing the patient to receive care in [place]. Authorization request # [id number]. Referral only -Specialty see above Location see above [place] to leave a message on voice mail? Yes Primary language: Amharic Shoe Packer needed? No Call taken on October 03, 2019 at 10:45 AM by Lisa Ventura Order request route to P SMI TRIAGE Referrals Route to P SMI (Green/[place]/Purple) FRINGE WEAVER documented in this encounter Plan of Treatment Not on filedocumented as of this encounter Visit Diagnoses Not on filedocumented in this encounter Care Teams Neurology Manager Relationship Specialty Start Date End Date Francisco Metz PCP - General Family Practice 11/14/18 04/02/20 MD Stevie Bebeto Roth MD Orthopedics 07/09/[address] [place] [address] Astrid Rios PA-C Physician Metal Base Blocker Physician Metal Base Blocker - 07/09/14 Surgical Francisco Metz Assigned PCP 07/04/19 02/01/20 MD Stevie [address] [place] [address] documented as of this encounter
--- OUTSIDE RECORDS SUMMARY | 2021-12-22 08:38 | XMS_ITS | Encounter Summary ---
:1980 Author Organization [place] Address [address] [facility] [place] [address] Care Team Providers Name Role Phone Bebeto [...] on filedocumented in this encounter Care Teams Scow Captain Relationship Specialty Start Date End Date Francisco Metz PCP - General Family Practice 11/14/18 04/02/20 MD Stevie Bebeto Roth MD Orthopedics 07/09/[address] [place], [place] [address] Astrid Rios PA-C Physician Quantitative Software Engineer Physician Quantitative Software Engineer - 07/09/14 Surgical documented as of this encounter
--- OUTSIDE RECORDS SUMMARY | 2021-12-22 08:38 | XMS_ITS | Encounter Summary ---
:1980 Author Organization [place] Address [address] [facility] [place] [address] Care Team Providers Name Role Phone Bebeto Roth MD Unavailable Astrid Rios PA-C Unavailable Francisco Metz MD Primary Care Provider [phone] Francisco Metz MD Unavailable [phone] Encounter Details Date Type Department Care Team [...] contact Unable to assess 01/23/2020 7:04 AM GRAIN CLEANER with someone who was confirmed or suspected to have Coronavirus / COVID-19? documented as of this encounter Plan of Treatment Not on filedocumented as of this encounter Visit Diagnoses Not on filedocumented in this encounter Care Teams Loading Machine Operator Helper Relationship Specialty Start Date End Date Francisco Metz PCP - General Family Practice 11/14/18 04/02/20 MD Stevie Bebeto Roth MD Orthopedics 07/09/14 [facility] [place], [place] [address] Astrid Rios PA-C Physician Full Stack Engineer Physician Full Stack Engineer - 07/09/14 Surgical Francisco Metz Assigned PCP 07/04/19 02/01/20 MD Stevie 2019 [place] [address] documented as of this encounter
--- OUTSIDE RECORDS SUMMARY | 2021-12-22 08:39 | XMS_ITS | Encounter Summary ---
:1980 Author Organization [place] Address [facility] [place] [address] Care Team Providers Name Role Phone Bebeto Roth MD Unavailable Astrid Rios PA-C Unavailable Keri Elias MD Primary Care Provider Unavailable Reason for Visit Diagnostic Imaging XR - Closed Specialty Diagnoses / Procedures Referred By Contact Refer red To Contact Diagnoses Scoliosis Kyphosis (acquired) (postural) Bebeto Roth MD Procedures XR Six Foot Standing Extremities [address] [place], [place] [address] Referral ID Status Reason Start Date Expiration Date Visits Requ ested Visits Authorized [id number] Closed 01/10/2018 01/10/2019 1 1 Encounter Details Date Type Department Care Team Description 01/17/2018 Radiant Appointment [facility] Bebeto Roth Scol iosis; Center Xray MD Devan Kyphosis (acquired) (postural) [address] [facility] [address] [facility] [address] [place] [address] [phone] Social History Tobacco Use Types Packs/Day Years [...] AM Lin s Results for this EXTREMITIES STAFF RADIOGRAPHER Kyphosis (acquired) procedur e are in (postural) the results section. documented in this encounter Results XR Six Foot Standing Extremities (01/17/2018 8:40 AM STAFF RADIOGRAPHER) Anatomical Region Laterality Modality Lower Extremity Computed Radiography Specimen (Source) Anatomical Location Collection Method / Collectio n Time Received Time / Laterality Volume Impressions 01/17/2018 2:07 PM STAFF RADIOGRAPHER Impression: 1. Fusion instrumentation from T4 throug h L3 without evidence of hardware complication. 2. Mild convex right curvature of the th oracolumbar/lumbar spine with apex at T12. 3. No substantial global coronal imbalan ce. 4. Normal sagittal vertical axis. MADALYN ZARAGOZA MD Narrative 01/17/2018 2:07 PM STAFF RADIOGRAPHER Exam: XR SPINE COMPLETE SCOLIOSIS 2 VW, [...] No substantial global coronal imbalance. Sagittal Vertical Sparks (A vertical line drawn from the center [...] No substantial global coronal imbalance. Sagittal Vertical Sparks (A vertical line drawn from the center [...] (postural) documented in this encounter Care Teams Clinical Trial Coordinator Relationship Specialty Start Date End Date Keri Elias PCP - General Family Practice 03/12/15 9 MD Ira Glez David Wayne, MD Orthopedics 5/27/[address] [place] [address] Astrid Rios PA-C Physician Hinging Machine Operator Physician Hinging Machine Operator - 07/09/14 Surgical documented as of this encounter
--- OUTSIDE RECORDS SUMMARY | 2021-12-22 08:39 | XMS_ITS | Encounter Summary ---
:1980 Author Organization [place] Address [address] [place] [address] Care Team Providers Name Role Phone Bebeto [...] on filedocumented in this encounter Care Teams Human Resources Executive Assistant Relationship Specialty Start Date End Date Francisco Metz PCP - General Family Practice 11/14/18 04/02/20 MD Stevie Bebeto Roth MD Orthopedics 07/09/[address] [place], [place] [address] Astrid Rios PA-C Physician Barge Hand Physician Barge Hand - 07/09/14 Surgical documented as of this encounter
--- OUTSIDE RECORDS SUMMARY | 2021-12-22 08:39 | XMS_ITS | Encounter Summary ---
:1980 Author Organization [place] Address [facility] [place] [address] Care Team Providers Name Role Phone Bebeto Roth MD Unavailable Astrid Rios PA-C Unavailable Keri Elias MD Primary Care Provider Unavailable Reason for Visit Reason Comments Surgical Followup 7 wk pop DOS 10/14/17 extensio n of thoracic fusion Surgical Followup Encounter Details Date Type Department Care Team Description 12/13/2017 Office Visit [facility] Orthopaedic Bebeto Roth S/P spi nal fusion Clinic MD Devan (Primary Dx) [address] [place] [address] [address] [place] [id number] Social History Tobacco Use Types Packs/Day Years [...] Marjan Morataya - 12/13/2017 3:00 PM CDT [facility] Orthopedics Bebeto Roth MD 12/13/2017 Name: [...] denies problems with the incision. KYLEE: 24% Lknmsu56: 29 Pain scale: 4 Physical Examination: Ht [...] MD: Keri Elias Ref. MD: Self Referred Ethnoarchaeology Professor? 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 Work [...] status documented in this encounter Care Teams Railroad Watchman Relationship Specialty Start Date End Date Keri Elias PCP - General Family Practice 03/12/15 9 MD Ira Glez David Wayne, MD Orthopedics 07/09/[address] [facility] [place] [address] Astrid Rios PA-C Physician Shopper Insights Manager Physician Shopper Insights Manager - 07/09/14 Surgical documented as of this encounter
--- OUTSIDE RECORDS SUMMARY | 2021-12-22 08:39 | XMS_ITS | Encounter Summary ---
:1980 Author Organization [place] Address [address] [place] [address] Care Team Providers Name Role Phone Bebeto Roth MD Unavailable Astrid Rios PA-C Unavailable Keri lEias MD Primary Care Provider Unavailable Reason for Visit Reason Onset Date Comments Refill Request 11/06/2017 Encounter Details Date Type Department Care Team Description 11/06/2017 [facility] Bebeto Roth, Refill Request [address] [facility] 4th Floor [address] [place], [place] [phone] [place] [address] (Wo rk) Social History Tobacco [...] 11:39 AM CDT Refilled to [facility] in [place]. Telephone Encounter - Joe Deng - 11/09/2017 [...] a cheney Action Taken: Message routed to: [facility] ([facility]): Orthopedics Telephone Encounter - Katy Toribio RN [...] order and will be brought down to [facility] pharmacy for patient to poultry picker this afternoon. Telephone Encounter - Yamilka Rader - 11/06/2017 7:[address] [facility] Phone Message May a detailed message be left on voicemail: yes Reason for Call: Medication Refill Request Has the patient contacted the pharmacy for the refill? Yes Name of medication being requested: methocarbamol (ROBAXIN) 500 MG tablet & oxyCODONE IR (ROXICODONE) 10 MG tablet Provider who prescribed the medication: Dr. Roth Pharmacy: [facility] - Please call pt when ready for poultry picker - Will be out by tomorrow Date medication is needed: KEMI Action Taken: Message routed to: [facility] ([facility]): Orthopedics documented in this encounter Plan of Treatment Not on filedocumented as of this encounter Visit Diagnoses Diagnosis S/P spinal fusion Arthrodesis status documented in this encounter Care Teams Inside Trucker Relationship Specialty Start Date End Date Keri Elias PCP - General Family Practice 03/12/15 9 NewtonMD Ira David Wayne, MD Orthopedics 07/09/[address] [place] [address] Astrid Rios PA-C Physician Fuel Yard Operator Physician Fuel Yard Operator - 07/09/14 Surgical documented as of this encounter
--- OUTSIDE RECORDS SUMMARY | 2021-12-22 08:39 | XMS_ITS | Encounter Summary ---
:1980 Author Organization [place] Address [address] [facility] [place] [address] Care Team Providers Name Role Phone Bebeto Roth MD Unavailable Astrid Rios PA-C Unavailable Keri Elias MD Primary Care Provider Unavailable Reason for Visit Reason Comments Prior Auth - Medication Ondansetron 4MG ODT Encounter Details Date Type Department Care Team Description 10/30/2017 Documentation Only [facility] Awa Wilcox Prior Auth - [address] [facility] MarthaBLAYNE CELERY [place] [address] 0[address] [facility] (Ondansetron 4MG [phone] SE ODT) [place] [address] Social History Tobacco Use Types [...] I called pt;. & gave her the phone#[phone] for the Medication Prior Auth. Dept. Triage stated this AM pharmacy request was faxed to Prior Auth dept. Pt. Will F/U with them. She states still has slight nausea after surgery & Zofran helps. RTC [id number]. S.O./L:Michelle Deras RN. Laureen Simmons RN - 11/13/2017 11:44 AM CDT [facility] Call Center Phone Message May a detailed message be left on voicemail: yes Reason for Call: Medication Question or concern regarding medication Prescription Clarification Name of Medication: ondansetron (ZOFRAN-ODT) 4 MG ODT tab Prescribing Provider: Dr. Roth Pharmacy: [facility] What on the order needs clarification? Patient calling, [facility] pharmacy has been sending PA requestand [...] Appeal Info: Prescription Claim Appeals 109 - [facility] [employer] [address] [address] [place] [address] Fax: Appeal: No Appeal Status:n/a Copay: $6.16 [place] Filled: Yes - Per prescriber, patient was discharge with a quantity that complies with insurance limitations. Insurance: [employer] Commercial - [facility] Submitted Via: Stephan Lopez [place] [facility] Liaison [facility] [place] [place] [facility] [address], [place] [address] [email or web address] [email or web address] Pager: [phone] documented in this encounter Plan of Treatment Not on filedocumented as of this encounter Visit Diagnoses Not on filedocumented in this encounter Care Teams Clinical Specialty Rep Relationship Specialty Start Date End Date Keri Elias PCP - General Family Practice 03/12/15 9 MD Ira Glez David Wayne, MD Orthopedics 07/09/[address] [place] [address] Astrid Rios PA-C Physician Tab Machine Operator Physician Tab Machine Operator - 07/09/14 Surgical documented as of this encounter
--- OUTSIDE RECORDS SUMMARY | 2021-12-22 08:39 | XMS_ITS | Encounter Summary ---
:1980 Author Organization [place] Address [facility] [place] [address] Care Team Providers Name Role Phone Bebeto Roth MD Unavailable Astrid Rios PA-C Unavailable Keri Elias MD Primary Care Provider Unavailable Reason for Visit Diagnostic Imaging XR - Closed Specialty Diagnoses / Procedures Referred By Contact Refer red To Contact Diagnoses Scoliosis Kyphosis (acquired) (postural) Bebeto Roth MD Procedures XR Spine Complete Scoliosis [address] [place], [place] [address] Referral ID Status Reason Start Date Expiration Date Visits Requ ested Visits Authorized [id number] Closed 01/10/2018 01/10/2019 1 1 Encounter Details Date Type Department Care Team Description 01/17/2018 [facility]iant Appointment [facility] Bebeto Roth Scol iosis; Center Xray MD Devan Kyphosis (acquired) (postural) [address] [facility] [address] 1st [address] [facility] [address] [place] [address] [phone] Social History Tobacco Use Types Packs/Day Years [...] Scoliosis Results for this SCOLIOSIS 2 VIEWS PALLET ASSEMBLER Kyphosis (acquired) pro cedure are in (postural) the results section. documented in this encounter Results XR Spine Complete Scoliosis 2 Views (01/17/2018 8:41 AM PALLET ASSEMBLER) Anatomical Region Laterality Modality Spine Computed Radiography Specimen (Source) Anatomical Location Collection Method / Collectio n Time Received Time / Laterality Volume Impressions 01/17/2018 2:07 PM PALLET ASSEMBLER Impression: 1. Fusion instrumentation from T4 throug h L3 without evidence of hardware complication. 2. Mild convex right curvature of the th oracolumbar/lumbar spine with apex at T12. 3. No substantial global coronal imbalan ce. 4. Normal sagittal vertical axis. MADALYN ZARAGOZA MD Narrative 01/17/2018 2:07 PM PALLET ASSEMBLER Exam: XR SPINE COMPLETE SCOLIOSIS 2 VW, [...] No substantial global coronal imbalance. Sagittal Vertical [place] (A vertical line drawn from the center [...] No substantial global coronal imbalance. Sagittal Vertical [place] (A vertical line drawn from the center [...] (postural) documented in this encounter Care Teams Wood Cut Engraver Relationship Specialty Start Date End Date Keri Elias PCP - General Family Practice 03/12/15 9 MD Ira Glez David Wayne, MD Orthopedics 07/09/[address] [place] [address] Astrid Rios PA-C Physician Accountant Systems Physician Accountant Systems - 07/09/14 Surgical documented as of this encounter
--- OUTSIDE RECORDS SUMMARY | 2021-12-22 08:39 | XMS_ITS | Encounter Summary ---
:1980 Author Organization [place] Address [address] [facility] [place] [address] Care Team Providers Name Role Phone Bebeto Roth MD Unavailable Astrid Rios PA-C Unavailable Keri Elias MD Primary Care Provider Unavailable Reason for Visit Diagnostic Imaging XR - Closed Specialty Diagnoses / Procedures Referred By Contact Refer red To Contact Diagnoses S/P spinal fusion Bebeto Roth MD Procedures XR Six Foot Standing Extremities [address] [place], [place] [address] Referral ID Status Reason Start Date Expiration Date Visits Requ ested Visits Authorized [id number] Closed 11/06/2017 11/06/2018 1 1 Encounter Details Date Type Department Care Team Description 12/13/2017 Radiant Appointment [facility] Imaging Bebeto Roth S/P spinal fusion Center Una Hartman MD 9 [facility] [address] [place] [address] [phone] Social History Tobacco Use Types Packs/Day Years [...] No substantial global coronal imbalance. Sagittal Vertical [place] (A vertical line drawn from the center [...] a nonobstructive bowel gas pattern. Procedure Note [place], Madalyn J, MD - 12/13/2017Format ting of [...] No substantial global coronal imbalance. Sagittal Vertical [place] (A vertical line drawn from the center [...] status documented in this encounter Care Teams Thoroughbred Horse Farm Manager Relationship Specialty Start Date End Date Keri Elias PCP - General Family Practice 03/12/15 9 MD Ira Glez David Wayne, MD Orthopedics 07/09/14 [address] [facility] [address] [place] [address] Astrid Rios PA-C Physician Casino Manager Physician Casino Manager - 07/09/14 Surgical documented as of this encounter
--- OUTSIDE RECORDS SUMMARY | 2021-12-22 08:39 | XMS_ITS | Encounter Summary ---
:1980 Author Organization [place] Address [address] [facility] [place] [address] Care Team Providers Name Role Phone Bebeto Roth MD Unavailable Astrid Rios PA-C Unavailable Francisco Metz MD Primary Care Provider [phone] Reason for Visit Reason Comments Confirmation Of Encounter Details Date Type Department Care Team Description 01/08/2019 Office Visit [facility] Lakisha Nielsen cy test positive (Primary Dx); Medicine Clinic DO Lacy Screening for condition [address] [address] [address] [place], [place] [phone] [address] Social History Tobacco Use Types Packs/Day Years Used Date Smoking Tobacco: Never Smokeless Tobacco: Never Alcohol Use Standard Drinks/Week Comments No 0 (1 standard drink = 0.6 oz pure alcoho l) Sex Assigned at Date Recorded Not on file documented as of this encounter Last Filed Vital Signs Vital Sign Reading Time Taken Comments Blood Pressure 115/79 01/08/2019 1:52 PM BITUMINOUS PAVING MACHINE OPERATOR Pulse 121 01/08/2019 1:52 PM BITUMINOUS PAVING MACHINE OPERATOR Temperature 36.2 ??C (97.2 ??F) 01/08/2019 1:52 PM BITUMINOUS PAVING MACHINE OPERATOR Respiratory Rate 16 01/08/2019 1:52 PM BITUMINOUS PAVING MACHINE OPERATOR Oxygen Saturation 100% 01/08/2019 1:52 PM BITUMINOUS PAVING MACHINE OPERATOR Inhaled Oxygen Concentration - - Weight 75.6 kg (166 lb 9.6 oz) 01/08/2019 1:52 PM BITUMINOUS PAVING MACHINE OPERATOR Height - - Body Mass Index 29.51 04/18/2018 8:42 AM BITUMINOUS PAVING MACHINE OPERATOR documented in this encounter Patient Instructions Patient Lakisha Gonzalez, - 01/08/2019 1:40 PM BITUMINOUS PAVING MACHINE OPERATOR Here is the plan from today's visit 1. Screening for condition - HCG Qualitative Urine (UPT) ([facility]) 2. test positive Results by [facility] - CBC with Plt ([facility]) - Hemoglobin A1c ([facility]) - Vit-Fe Fumarate-FA ( MULTIVITAMIN W/IRON) 27-0.8 [...] and ultrasound Thank you for coming to [facility] today. Lab Testing: If you had lab testing today and your results are reassuring or normal they will be mailed to you or sent through [facility] within 7 days. If the lab tests need quick action we will call you with the results. The phone number we will call with results is # [phone] (home) . If this is not the best numberplease call our clinic and change the number. Medication Refills: If you need any refills please call your pharmacy and they will contact us. If you need to pickling tank operator your refill at a new pharmacy, please contact the new pharmacy directly. The new pharmacy will help you get your medications transferred faster. Scheduling: If you have any concerns about today's visit or wish to schedule another appointment please call ouroffice during normal business hours [phone] (8- 5:00 M-F) If a referral was made to a [facility] and you don't get a call from [facility] please call [phone]. If a Mammogram was ordered for you at [facility] call [phone] to schedule or change yourappointment. If you had an XRay/CT/Ultrasound/MRI ordered the number is [phone] to schedule or change your radiology appointment. Medical Concerns: If you have urgent medical concerns please call [phone] at any time of the day. Cyrus Nielsen DO MINOUS PAVING MACHINE OPERATOR documented in this encounter Progress Notes Lakisha [...] Her last 2 deliveries have been with [facility]. Problem, Medication and Allergy Lists were reviewed [...] with the final plan. Cyrus Nielsen DO [facility] Public Health Service Officer PGY-2 MINOUS PAVING MACHINE OPERATOR Katalina Ching MD - 01/08/2019 1:40 PM CST Preceptor Attestation: Patient seen, evaluated and discussed with the resident. I have verified the content of the note, which accurately reflects my assessment of the patient and the plan of care. Supervising Physician: Katalina Ching MD MINOUS PAVING MACHINE OPERATOR documented in this encounter Plan of Treatment Not on filedocumented as of this encounter Procedures Procedure Name Priority Date/Time Associated Comments Diagnosis HCL CBC WITH Routine 01/08/2019 2:41 PM Screening for Results for this PLATELETS, DIFF BITUMINOUS PAVING MACHINE OPERATOR condition procedure ar e in the results section. HEMOGLOBIN A1C Routine 01/08/2019 2:34 PM test Resul ts for this ([facility]) BITUMINOUS PAVING MACHINE OPERATOR positive procedure are i n the results section. HCG QUALITATIVE URINE Routine 01/08/2019 1:59 PM Screening for Results for this ([facility]) BITUMINOUS PAVING MACHINE OPERATOR condition procedure are i n the results section. documented in this encounter Results (ABNORMAL) CBC with platelets differential (01/08/2019 2:41 PM BITUMINOUS PAVING MACHINE OPERATOR) [facility] Method Time Signature WBC 8.9 4.0 - 01/08/2019 [facility] 11.0 9:11 PM BITUMINOUS PAVING MACHINE OPERATOR [facility] 10e9/L [facility] RBC Count 4.64 3.8 - 5.2 01/08/2019 [facility] 10e12/L 9:11 PM [facility] Hemoglobin 10.9 (L) 11.7 - 01/08/2019 [facility] 15.7 g/dL 9:11 PM [facility] Hematocrit 36.2 35.0 - 01/08/2019 [facility] 47.0 % 9:11 PM [facility] MCV 78 78 - 100 01/08/2019 [facility] fl 9:11 PM [facility] MCH 23.5 (L) 26.5 - 01/08/2019 [facility] 33.0 pg 9:11 PM [facility] MCHC 30.1 (L) 31.5 - 01/08/2019 [facility] 36.5 g/dL 9:11 PM [facility] RDW 15.2 (H) 10.0 - 01/08/2019 [facility] 15.0 % 9:11 PM [facility] Platelet Count 359 150 - 450 01/08/2019 [facility] 10e9/L 9:11 PM [facility] Diff Method Automated 01/08/2019 [facility] Method 9:11 PM [facility] % Neutrophils 69.7 % 01/08/2019 [facility] 9:11 PM [facility] % Lymphocytes 18.5 % 01/08/2019 [facility] 9:11 PM [facility] % Monocytes 9.4 % 01/08/2019 [facility] 9:11 PM [facility] % Eosinophils 1.7 % 01/08/2019 [facility] 9:11 PM [facility] % Basophils 0.4 % 01/08/2019 [facility] 9:11 PM [facility] % Immature 0.3 % 01/08/2019 [facility] Granulocytes 9:11 PM [facility] Nucleated RBCs 0 0 /100 01/08/2019 [facility] 9:11 PM [facility] Absolute 6.2 1.6 - 8.3 01/08/2019 [facility] Neutrophil 10e9/L 9:11 PM [facility] Absolute 1.7 0.8 - 5.3 01/08/2019 [facility] Lymphocytes 10e9/L 9:11 PM [facility] Absolute 0.8 0.0 - 1.3 01/08/2019 [facility] Monocytes 10e9/L 9:11 PM BITUMINOUS PAVING MACHINE OPERATOR [facility] Absolute 0.2 0.0 - 0.7 01/08/2019 [facility] Eosinophils 10e9/L 9:11 PM BITUMINOUS PAVING MACHINE OPERATOR [facility] Absolute 0.0 0.0 - 0.2 01/08/2019 [facility] Basophils 10e9/L 9:11 PM [facility] Abs Immature 0.0 0 - 0.4 01/08/2019 [facility] Granulocytes 10e9/L 9:11 PM BITUMINOUS PAVING MACHINE OPERATOR [facility] Absolute 0.0 01/08/2019 [facility] Nucleated RBC 9:11 PM [facility] Specimen Anatomical Collection Method Collection Time Receive d Time (Source) Location / / Volume Laterality Blood specimen VENOUS BLOOD / 01/08/2019 2:41 PM 01/08 5:00 (specimen) Unknown BITUMINOUS PAVING MACHINE OPERATOR PM BITUMINOUS PAVING MACHINE OPERATOR Katalina Ching MD LAB - BLOOD ORDERABLES Performing Organization Address City/[facility] [address]/ZIP Code Phon e Number [facility] [address] [place] [address] [facility] Hemoglobin A1c ([facility]) (01/08/2019 2:34 PM BITUMINOUS PAVING MACHINE OPERATOR) athologist Signature Hemoglobin A1C 4.8 4.1 - 5.7 [facility] MEDICINE [facility] Specimen Anatomical Collection Method Collection Time Receive d Time (Source) Location / / Volume Laterality Blood specimen VENOUS BLOOD / 01/08/2019 2:34 PM 01/08 2:35 (specimen) Unknown BITUMINOUS PAVING MACHINE OPERATOR PM BITUMINOUS PAVING MACHINE OPERATOR Katalina Ching MD LAB - [facility] Performing Organization Address City/[facility] [address]/ZIP Code Phon e Number [facility] [address] [place] [phone] [facility] (ABNORMAL) HCG Qualitative Urine (UPT) ([facility]) (01/08/2019 1:59 PM BITUMINOUS PAVING MACHINE OPERATOR) [facility] gist Method Time Signature HCG Qual POSITIVE (A) Negative [facility] Urine [facility] MEDICINE [facility] Specimen Anatomical Collection Method Collection Time Receive d Time (Source) Location / / Volume Laterality Urine specimen 01/08/2019 1:59 PM 019 2:00 (specimen) BITUMINOUS PAVING MACHINE OPERATOR PM BITUMINOUS PAVING MACHINE OPERATOR Katalina Ching MD LAB - [facility] Performing Organization Address City/State/ZIP Code Phon e Number [facility] [address] [place], [place] [address] [facility] documented in this encounter Visit Diagnoses Diagnosis test positive - Primary examination or test, positive result Screening for condition Screening for unspecified condition documented in this encounter Care Teams Risk Specialist Relationship Specialty Start Date End Date Francisco Metz PCP - General Family Practice 11/14/18 04/02/20 MD Stevie Bebeto Roth MD Orthopedics 07/09/14 [facility] [address] [address] Astrid Rios PA-C Physician Professor Of Sociology Physician Professor Of Sociology - 07/09/14 Surgical documented as of this encounter
--- OUTSIDE RECORDS SUMMARY | 2021-12-22 08:39 | XMS_ITS | Encounter Summary ---
:1980 Author Organization [place] Address [address] [facility] [place] [address] Care Team Providers Name Role Phone Bebeto Roth MD Unavailable Astrid Rios PA-C Unavailable Keri Elias MD Primary Care Provider Unavailable Reason for Referral Diagnostic Imaging XR - Closed Specialty Diagnoses / Procedures Referred By Contact Refer red To Contact Diagnoses Scoliosis Kyphosis (acquired) (postural) Bebeto Roth MD Procedures XR Six Foot Standing Extremities [address] [place], [place] [address] Referral ID Status Reason Start Date Expiration Date Visits Requ ested Visits Authorized [id number] Closed 01/10/2018 01/10/2019 1 1 NG END TRIMMER Diagnostic Imaging XR - Closed Specialty Diagnoses / Procedures Referred By Contact Refer red To Contact Diagnoses Scoliosis Kyphosis (acquired) (postural) Bebeto Roth MD Procedures XR Spine Complete Scoliosis [address] [place], [place] [address] Referral ID Status Reason Start Date Expiration Date Visits Requ ested Visits Authorized [id number] Closed 01/10/2018 01/10/2019 1 1 NG END TRIMMER Encounter Details Date Type Department Care Team Description 01/10/2018 Orders Only [facility] Orthopaedic Bebeto Roth is (Primary Dx); Clinic MD Devan Kyphosis (acquired) (postural) [address] [place] [address] [phone] Social History Tobacco Use Types Packs/Day Years [...] Complete Scoliosis 2 Views (01/17/2018 8:41 AM FACING END TRIMMER) Anatomical Region Laterality Modality Spine Computed Radiography Specimen (Source) Anatomical Location Collection Method / Collectio n Time Received Time / Laterality Volume Impressions 01/17/2018 2:07 PM FACING END TRIMMER Impression: 1. Fusion instrumentation from T4 throug h L3 without evidence of hardware complication. 2. Mild convex right curvature of the th oracolumbar/lumbar spine with apex at T12. 3. No substantial global coronal imbalan ce. 4. Normal sagittal vertical axis. MADALYN ZARAGOZA MD Narrative 01/17/2018 2:07 PM FACING END TRIMMER Exam: XR SPINE COMPLETE SCOLIOSIS 2 VW, [...] No substantial global coronal imbalance. Sagittal Vertical [place] (A vertical line drawn from the center [...] No substantial global coronal imbalance. Sagittal Vertical [place] (A vertical line drawn from the center [...] Six Foot Standing Extremities (01/17/2018 8:40 AM FACING END TRIMMER) Anatomical Region Laterality Modality Lower Extremity Computed Radiography Specimen (Source) Anatomical Location Collection Method / Collectio n Time Received Time / Laterality Volume Impressions 01/17/2018 2:07 PM FACING END TRIMMER Impression: 1. Fusion instrumentation from T4 throug h L3 without evidence of hardware complication. 2. Mild convex right curvature of the th oracolumbar/lumbar spine with apex at T12. 3. No substantial global coronal imbalan ce. 4. Normal sagittal vertical axis. MADALYN ZARAGOZA MD Narrative 01/17/2018 2:07 PM FACING END TRIMMER Exam: XR SPINE COMPLETE SCOLIOSIS 2 VW, [...] No substantial global coronal imbalance. Sagittal Vertical [place] (A vertical line drawn from the center [...] No substantial global coronal imbalance. Sagittal Vertical [place] (A vertical line drawn from the center [...] (postural) documented in this encounter Care Teams Paramedic Relationship Specialty Start Date End Date Keri Elias PCP - General Family Practice 03/12/15 9 MD Ira Glez David Wayne, MD Orthopedics 07/09/[address] [id number] [place] [address] Astrid Rios PA-C Physician Welt Slasher Physician Welt Slasher - 07/09/14 Surgical documented as of this encounter
--- OUTSIDE RECORDS SUMMARY | 2021-12-22 08:39 | XMS_ITS | Encounter Summary ---
:1980 Author Organization [place] Address [address] [facility] [place] [address] Care Team Providers Name Role Phone Bebeto Roth MD Unavailable Astrid Rios PA-C Unavailable Keri Elias MD Primary Care Provider Unavailable Reason for Referral Diagnostic Imaging XR - Closed Specialty Diagnoses / Procedures Referred By Contact Refer red To Contact Diagnoses S/P spinal fusion Bebeto Roth MD Procedures XR Six Foot Standing Extremities [address] [address] Referral ID Status Reason Start Date Expiration Date Visits Requ ested Visits Authorized [id number] Closed 11/06/2017 11/06/2018 1 1 Diagnostic Imaging XR - Closed Specialty Diagnoses / Procedures Referred By Contact Refer red To Contact Diagnoses S/P spinal fusion Bebeto Roth MD Procedures XR Spine Complete 2 Views [address] [place], [place] [address] Referral ID Status Reason Start Date Expiration Date Visits Requ ested Visits Authorized [id number] Closed 11/06/2017 11/06/2018 1 1 Encounter Details Date Type Department Care Team Description 11/06/2017 Orders Only [facility] Orthopaedic Bebeto Roth S/P spi nal fusion Clinic MD Devan (Primary Dx[address] 4[address] [place] [address] [phone] Social History Tobacco Use Types Packs/Day Years [...] No substantial global coronal imbalance. Sagittal Vertical [place] (A vertical line drawn from the center [...] No substantial global coronal imbalance. Sagittal Vertical [place] (A vertical line drawn from the center [...] No substantial global coronal imbalance. Sagittal Vertical [place] (A vertical line drawn from the center [...] No substantial global coronal imbalance. Sagittal Vertical [place] (A vertical line drawn from the center [...] status documented in this encounter Care Teams Chemical Instrumentation Officer Relationship Specialty Start Date End Date Keri Elias PCP - General Family Practice 03/12/15 9 MD Ira Glez David Wayne, MD Orthopedics 07/09/14 [id number] [place] [address] Astrid Rios PA-C Physician Print Decorator Physician Print Decorator - 07/09/14 Surgical documented as of this encounter
--- OUTSIDE RECORDS SUMMARY | 2021-12-22 08:39 | XMS_ITS | Encounter Summary ---
:1980 Author Organization [place] Address [address] [facility] [place] [address] Care Team Providers Name Role Phone Bebeto Roth MD Unavailable Astrid Rios PA-C Unavailable Keri Elias MD Primary Care Provider Unavailable Reason for Visit Diagnostic Imaging XR - Closed Specialty Diagnoses / Procedures Referred By Contact Refer red To Contact Diagnoses Scoliosis Bebeto Roth MD Procedures XR Spine Complete Scoliosis [address] [place], [place] [address] Referral ID Status Reason Start Date Expiration Date Visits Requ ested Visits Authorized [id number] Closed 04/17/2018 04/17/2019 1 1 Encounter Details Date Type Department Care Team Description 04/18/2018 Ancillary Procedure [facility] Chan Roth MD 9 [facility] [address] [facility] [address] 1[address] [place] [address] Social History Tobacco Use Types Packs/Day [...] Resu lts for this SCOLIOSIS 2 VIEWS TISSUE SPECIALIST procedure are in the results section. documented in this encounter Results XR Spine Complete Scoliosis 2 Views (04/18/2018 9:23 AM TISSUE SPECIALIST) Anatomical Region Laterality Modality Spine Computed Radiography Specimen (Source) Anatomical Location Collection Method / Collectio n Time Received Time / Laterality Volume Impressions 04/18/2018 3:19 PM TISSUE SPECIALIST Impression: 1. Fusion hardware from T4 through L3 wi thout evidence of hardware complication. 2. Mild convex right curvature of the th oracolumbar/lumbar spine with apex at T12. 3. No substantial global coronal imbalan ce. 4. Normal sagittal vertical axis. MADALYN ZARAGOZA MD Narrative 04/18/2018 3:19 PM TISSUE SPECIALIST Exam: XR SIX FOOT STANDING EXTREMITIES, XR [...] No substantial global coronal imbalance. Sagittal Vertical [place] (A vertical line drawn from the center [...] No substantial global coronal imbalance. Sagittal Vertical [place] (A vertical line drawn from the center [...] on filedocumented in this encounter Care Teams Application Development Specialist Relationship Specialty Start Date End Date Keri Elias PCP - General Family Practice 03/12/15 9 MD Ira Glez David Wayne, MD Orthopedics 07/09/14 [facility] [place] [address] Astrid Rios PA-C Physician Dump Motor Operator Physician Dump Motor Operator - 07/09/14 Surgical documented as of this encounter
--- OUTSIDE RECORDS SUMMARY | 2021-12-22 08:39 | XMS_ITS | Encounter Summary ---
:1980 Author Organization [place] Address [address] [facility] [place] [address] Care Team Providers Name Role Phone Bebeto Roth MD Unavailable Astrid Rios PA-C Unavailable Keri Elias MD Primary Care Provider Unavailable Reason for Visit Reason Onset Date Comments Refill Request 11/09/2017 Encounter Details Date Type Department Care Team Description 11/09/2017 Refill [facility] Orthopaedic Clinic Bebeto Roth MD Refill Request [address] 4th [address] [place], [place] [address] [place] [phone] Social History Tobacco Use Types Packs/Day Years [...] status documented in this encounter Care Teams Airbrush Artist Technical Relationship Specialty Start Date End Date Madlon-Brittnee, Keri PCP - General Family Practice 03/12/15 9 MD Ira Glez David Wayne, MD Orthopedics 07/09/[address] [place] [address] Astrid Rios PA-C Physician Misdraw Hand Physician Misdraw Hand - 07/09/14 Surgical documented as of this encounter
--- OUTSIDE RECORDS SUMMARY | 2021-12-22 08:39 | XMS_ITS | Encounter Summary ---
:1980 Author Organization [place] Address [address] [place] [address]. [place] [address] Care Team Providers Name Role Phone Bebeto Roth MD Unavailable Astrid Rios PA-C Unavailable Francisco Metz MD Primary Care Provider [phone] Reason for Visit Reason Comments Miscarriage confirmed by [facility] on February 14. Has US results with her. Now having very heavy bleedi ng with golfball sized clots. Encounter Details Date Type Department Care Team Description 02/18/2019 Emergency [facility] Miguel Angel Collins MD [facility] Emergency Department [address] [address] [place] [phone] Social History Tobacco Use Types Packs/Day Years Used Date Smoking Tobacco: Never Smokeless Tobacco: Never Alcohol Use Standard Drinks/Week Comments No 0 (1 standard drink = 0.6 oz pure alcoho l) Sex Assigned at Date Recorded Not on file documented as of this encounter Last Filed Vital Signs Vital Sign Reading Time Taken Comments Blood Pressure 94/56 02/18/2019 7:21 PM STEEL BUFFER Pulse 56 02/18/2019 7:21 PM STEEL BUFFER Temperature 36.9 ??C (98.4 ??F) 02/18/2019 3:50 PM STEEL BUFFER Respiratory Rate 16 02/18/2019 7:21 PM STEEL BUFFER Oxygen Saturation 94% 02/18/2019 7:21 PM STEEL BUFFER Inhaled Oxygen Concentration - - Weight 73.5 kg (162 lb) 02/18/2019 3:50 PM STEEL BUFFER Height - - Body Mass Index 28.7 04/18/2018 8:42 AM STEEL BUFFER documented in this encounter Discharge Instructions Discharge InstructionsGrAditi Ellington MD - 02/18/2019 7:06 PM STEEL BUFFER Please make an appointment to follow up with diesel truck crane operator--[facility] (phone: ). Call tomorrow for an appointment. L BUFFER AttachmentsThe following attachments cannot be sent through Care Everywhere. Miscarriage, Spontaneous (Completed) (Palestinian)documented in this encounter Medications at Time of Discharge Medication Sig Dispensed Refills Start Date End Date ferrous sulfate (FEROSUL) Take 1 tablet (325 60 tablet 1 325 (65 Fe) MG mg) by mouth daily tabletIndications: Iron (with breakfast) deficiency anemia, unspecified iron deficiency anemia type fluticasone (FLONASE) [address] [place] 1-2 sprays 16 g 3 07/05 MCG/ACT [...] Patient presents with ??? Miscarriage confirmed by [facility] on February 14. Has US results with her. Now having very heavy bleeding with golfball sized clots. HPI Azul Garg is a 38 year old female currently 6w4d (due date 09/13/2019) presenting with 5 days of bleeding. Patient states she started bleeding about 5 days ago and was seen at [facility] on 02/15/2019. Ultrasound was done at this [...] blood every 1-3 hours. She returned to [facility]- they were unable to reach OB control systems technician and sent patient here. Patient states she received Toradol around 2pm this afternoon. Patient denies fever/chills, lightheadedness/dizziness/syncope, nausea/vomiting, severe pain. Her blood type is O pos (03/07/2002, [employer]). I have reviewed the Medications, Allergies, Past Medical and Surgical History, and Social History inthe [employer] system. Review of Systems Constitutional: Negative [...] nursing note reviewed. Exam conducted with a senior cytogenetic technologist present. Constitutional: General: She is not in [...] sac consistent with completed spontaneous . OB control systems technician reviewed ultrasound, recommended no further intervention. Hemoglobin [...] in detail. [facility] RANDY COLLINS MD, MD I have reviewed the nursing notes. I have reviewed the findings, diagnosis, plan and need for follow up with the patient. Discharge Medication List as of 02/18/2019 7:05 PM Final diagnoses: Miscarriage 02/18/2019 [facility] [place], EMERGENCY DEPARTMENT Aditi Feliciano MD Resident 02/18/19 2767 Randy Collins MD 02/18/19 [address] BUFFER documented in this encounter Plan of Treatment Not on filedocumented as of this encounter Procedures Procedure Name Priority Date/Time Associated Comments Diagnosis US OB < 14 WEEKS STAT 02/18/2019 5:33 PM Resul ts for this SINGLE-TRANSABDOMINAL STEEL BUFFER proced ure are in the results section. HCG QUANTITATIVE STAT 02/18/2019 4:22 PM Resul ts for this STEEL BUFFER procedure are i n the results section. CBC WITH PLATELETS Routine 02/18/2019 4:22 PM Res ults for this STEEL BUFFER procedure are i n the results section. documented in this encounter Results US OB < 14 Weeks Single (02/18/2019 5:33 PM STEEL BUFFER) Anatomical Region Laterality Modality Abdomen/Pelvis Ultrasound Specimen (Source) Anatomical Location Collection Method / Collectio n Time Received Time / Laterality Volume Impressions 02/18/2019 8:17 PM STEEL BUFFER IMPRESSION: 1. No evidence of infiltrate finding ges tational sac, yolk sac or pole. 2. The endometrial stripe is heterogenou s and mildly thickened measuring 1.2 cm, given the patient's hi story of , cannot completely exclude retained products con ception. JOSE CRUZ MORENO MD Narrative 02/18/2019 8:17 PM STEEL BUFFER OBSTETRIC ULTRASOUND LESS THAN 14 WEEKS SINGLE [...] (ABNORMAL) CBC with platelets (02/18/2019 4:22 PM STEEL BUFFER) [facility] Method Time Signature WBC 11.4 (H) 4.0 - 11.0 02/18/2019 [facility] 10e9/L 5:55 PM STEEL BUFFER [facility] RBC Count 4.26 3.8 - 5.2 02/18/2019 [facility] 10e12/L 5:55 PM [facility] Hemoglobin 10.3 (L) 11.7 - 02/18/2019 [facility] 15.7 g/dL 5:55 PM [facility] Hematocrit 33.2 (L) 35.0 - 02/18/2019 [facility] 47.0 % 5:55 PM STEEL BUFFER [facility] MCV 78 78 - 100 02/18/2019 [facility] fl 5:55 PM [facility] MCH 24.2 (L) 26.5 - 02/18/2019 [facility] 33.0 pg 5:55 PM [facility] MCHC 31.0 (L) 31.5 - 02/18/2019 [facility] 36.5 g/dL 5:55 PM [facility] RDW 15.0 10.0 - 02/18/2019 [facility] 15.0 % 5:55 PM [facility] Platelet Count 328 150 - 450 02/18/2019 [facility] 10e9/L 5:55 PM [facility] Specimen Anatomical Collection Method Collection Time Receive d Time (Source) Location / / Volume Laterality 02/18/2019 4:22 PM 0 5:11 STEEL BUFFER PM STEEL BUFFER Aditi Feliciano MD LAB - BLOOD ORDERABLES Performing Organization Address City/State/ZIP Code Phon e Number [facility] [address] [place] [address] [facility] (ABNORMAL) HCG quantitative (blood) (02/18/2019 4:22 PM STEEL BUFFER) [facility] gist Method Time Signature HCG Quantitative 8,208 (H) 0 - 5 02/18/2019 [place] [facility] Serum IU/L 5:50 PM STEEL BUFFER [facility] Specimen Anatomical Collection Method Collection Time Receive d Time (Source) Location / / Volume Laterality Blood specimen 02/18/2019 4:22 PM 020 5:11 (specimen) STEEL BUFFER PM STEEL BUFFER Aditi Feliciano MD LAB - BLOOD ORDERABLES Performing Organization Address City/State/ZIP Code Phon e Number [facility] [address] [place] [address] [facility] documented in this encounter Visit Diagnoses Diagnosis Miscarriage Unspecified spontaneous without mention of complication documented in this encounter Administered Medications Inactive Administered Medications - up to 3 most recent administrations Medication Order MAR Action Action Date Dose Rate Site 0.9% sodium chloride BOLUS New Bag 02/18/2019 4:48 PM STEEL BUFFER 1,000 mLs 1000 mL/hr Intravenous, 1,000 mL, ONCE, at 1,000 mL/hr, Administer over 1 Hours, On 02/18/19 at 1646, For 1 dose NO Rho (D) immune globulin (RhoGam) need ed - mother Rh POSITIVE CONTINUOUS PRN, Starting on 02/18/19 at 1646, Until 02/18/19 at 2121 documented in this encounter Active and Recently Administered Medications Times are shown in STEEL BUFFER. Scheduled Medication Order 02/16/2019 02/17/2019 02/18/2019 0.9% sodium chloride BOLUS (COMPLETED) 1648 (New Bag - Provider: Kristina Keys, KENNY)1806 (Stopped - Provider: Kristina Keys, RN) Intravenous, 1,000 mL, ONCE, at 1,000 mL /hr, Administer over 1 Hours, 02/18/19 at 1646, For 1 dose PRN Medication Order 02/16/2019 02/17/2019 02/18/2019 NO Rho (D) immune globulin (RhoGam) needed - mother Rh POSITIVE CONTINUOUS PRN, Starting 02/18/19 at 1646, Until 02/18/19 at 2121 documented in this encounter Care Teams Director Web Relationship Specialty Start Date End Date Francisco Metz PCP - General Family Practice 11/14/18 04/02/20 MD Stevie Bebeto Roth MD Orthopedics 07/09/[address] [place] [address] Astrid Rios PA-C Physician Clinical Quality Manager Physician Clinical Quality Manager - 07/09/14 Surgical documented as of this encounter
--- OUTSIDE RECORDS SUMMARY | 2021-12-22 08:39 | XMS_ITS | Encounter Summary ---
:1980 Author Organization [place] Address [facility] [place] [address] Care Team Providers Name Role Phone Bebeto Roth MD Unavailable Astrid Rios PA-C Unavailable Keri Elias MD Primary Care Provider Unavailable Reason for Visit Diagnostic Imaging XR - Closed Specialty Diagnoses / Procedures Referred By Contact Refer red To Contact Diagnoses Scoliosis Bebeto Roth MD Procedures XR Six Foot Standing Extremities [address] [place], [place] [address] Referral ID Status Reason Start Date Expiration Date Visits Requ ested Visits Authorized [id number] Closed 04/17/2018 04/17/2019 1 1 Encounter Details Date Type Department Care Team Description 04/18/2018 Ancillary Procedure [facility] Chan Roth MD 9 [facility] [address] [facility] [address] 1st [place] [phone] Social History Tobacco Use Types Packs/Day [...] AM Scoliosis R esults for this EXTREMITIES UTILITIES MANAGER procedure are i n the results section. documented in this encounter Results XR Six Foot Standing Extremities (04/18/2018 9:23 AM UTILITIES MANAGER) Anatomical Region Laterality Modality Lower Extremity Computed Radiography Specimen (Source) Anatomical Location Collection Method / Collectio n Time Received Time / Laterality Volume Impressions 04/18/2018 3:19 PM UTILITIES MANAGER Impression: 1. Fusion hardware from T4 through L3 wi thout evidence of hardware complication. 2. Mild convex right curvature of the th oracolumbar/lumbar spine with apex at T12. 3. No substantial global coronal imbalan ce. 4. Normal sagittal vertical axis. MADALYN ZARAGOZA MD Narrative 04/18/2018 3:19 PM UTILITIES MANAGER Exam: XR SIX FOOT STANDING EXTREMITIES, XR [...] No substantial global coronal imbalance. Sagittal Vertical [place] (A vertical line drawn from the center [...] No substantial global coronal imbalance. Sagittal Vertical [place] (A vertical line drawn from the center [...] on filedocumented in this encounter Care Teams Division Officer Weapons Department Relationship Specialty Start Date End Date Keri Elias PCP - General Family Practice 03/12/15 9 MD Ira Glez David Wayne, MD Orthopedics 07/09/14 [facility] [place] [id number] [place] [address] Astrid Rios PA-C Physician Settlement Agent Physician Settlement Agent - 07/09/14 Surgical documented as of this encounter
--- OUTSIDE RECORDS SUMMARY | 2021-12-22 08:39 | XMS_ITS | Encounter Summary ---
:1980 Author Organization [place] Address [address] [facility] [address] Care Team Providers Name Role Phone Bebeto [...] filedocumented in this encounter Care Teams Manager Customer Relationship Specialty Start Date End Date Keri Elias PCP - General Family Practice 03/12/15 9 MD Ira Glez David Wayne, MD Orthopedics 07/09/[address] [place] [address] Astrid Rios PA-C Physician Food And Beverage Manager Physician Food And Beverage Manager - 07/09/14 Surgical documented as of this encounter
--- OUTSIDE RECORDS SUMMARY | 2021-12-22 08:39 | XMS_ITS | Encounter Summary ---
:1980 Author Organization [place] Address [address] [place] [address] Care Team Providers Name Role Phone Bebeto Roth MD Unavailable Astrid Rios PA-C Unavailable Francisco Metz MD Primary Care Provider [phone] Reason for Visit Reason Onset Date Comments Call To Schedule Appointment 01/09/2019 NOB appt re quest Encounter Details Date Type Department Care Team Description 01/09/2019 [facility]phone [facility] [place], Call To Schedule Medicine Clinic KENNY Patterson Appointment (NOB appt [address] [place], request ) [address] [place] [id number] Social History Tobacco Use Types Packs/Day Years [...] (this will be their primary OB provider). SFER AND PUMPHOUSE OPERATOR CHIEF Telephone Encounter - Yesenia Flowers RN - [...] Notes: Please document call and close encounter. Yesenia Flowers RN SFER AND PUMPHOUSE OPERATOR CHIEF documented in this encounter Plan of Treatment Not on filedocumented as of this encounter Visit Diagnoses Not on filedocumented in this encounter Care Teams Tool Turret Lathe Set Up Operator Relationship Specialty Start Date End Date Francisco Metz PCP - General Family Practice 11/14/18 04/02/20 MD Stevie Bebeto Roth MD Orthopedics 07/09/14 [facility] [address] [place] [address] Astrid Rios PA-C Physician Byproduct Engineer Physician Byproduct Engineer - 07/09/14 Surgical documented as of this encounter
--- OUTSIDE RECORDS SUMMARY | 2021-12-22 08:39 | XMS_ITS | Encounter Summary ---
:1980 Author Organization [place] Address [facility] [place] [address] Care Team Providers Name Role Phone Bebeto Roth MD Unavailable Astrid Rios PA-C Unavailable Keri Elias MD Primary Care Provider Unavailable Reason for Visit Reason Comments RECHECK DOS 10/23/17 extrention of jf mcintosh, follow up scoliosis Encounter Details Date Type Department Care Team Description 04/18/2018 Office Visit [facility] Orthopaedic B[facility]eto [facility] ent idiopathic scoliosis of thoracolumbar region (Primary Dx); Clinic MD Devan History of spinal fusion [address] [place] [address] 4th [address] [place] [address] [phone] Social History Tobacco Use Types Packs/Day Years [...] 68.9 kg (152 lb) 04/18/2018 8:42 AM FOURTH HAND Height 160 cm (5' 3) 04/18/2018 8:42 AM FOURTH HAND Body Mass Index 26.93 04/18/2018 8:42 AM FOURTH HAND documented in this encounter Progress Notes Bebeto Roth MD - 04/18/2018 8:45 AM CST [facility] Orthopedics Bebeto Roth MD 04/18/2018 Name: Azul [...] and developed the plan. Bebeto Roth MD TH HAND documented in this encounter Nursing Notes Quincy Rosas, DODIE - 04/18/2018 8:45 AM CST Reason For Visit: Chief Complaint Patient presents with ??? RECHECK DOS 10/23/17 extrention of fusion, follow up scoliosis Primary MD: Keri Elias MD: self Senior Manufacturing Engineer? No Date of surgery: 10/23/17 Type of [...] data might be hidden Quincy Rosas ATC TH HAND documented in this encounter Plan of Treatment Not on filedocumented as of this encounter Visit Diagnoses Diagnosis Adolescent idiopathic scoliosis of thora columbar region - Primary Scoliosis (and kyphoscoliosis), idiopath ic History of spinal fusion Arthrodesis status documented in this encounter Care Teams Nurse Ldr Relationship Specialty Start Date End Date Keri Elias PCP - General Family Practice 03/12/15 9 MD Ira Glez David Wayne, MD Orthopedics 07/09/[address] [place], [place] [address] [place] [address] Astrid Rios PA-C Physician Flooring Mechanic Physician Flooring Mechanic - 07/09/14 Surgical documented as of this encounter
--- OUTSIDE RECORDS SUMMARY | 2021-12-22 08:39 | XMS_ITS | Encounter Summary ---
:1980 Author Organization [place] Address [address] [facility] [place] [address] Care Team Providers Name Role Phone Bebeto Roth MD Unavailable Astrid Rios PA-C Unavailable Keri Elias MD Primary Care Provider Unavailable Reason for Visit Diagnostic Imaging XR - Closed Specialty Diagnoses / Procedures Referred By Contact Refer red To Contact Diagnoses S/P spinal fusion Bebeto Roth MD Procedures XR Spine Complete 2 Views [address] [place], [place] [address] Referral ID Status Reason Start Date Expiration Date Visits Requ ested Visits Authorized [id number] Closed 11/06/2017 11/06/2018 1 1 Encounter Details Date Type Department Care Team Description 12/13/2017 Radiant Appointment [facility] Bebeto Roth S/P spinal fusion Center Una Hartman MD 9 [facility] [address] [place] [address] [phone] Social History Tobacco Use Types Packs/Day Years [...] No substantial global coronal imbalance. Sagittal Vertical [place] (A vertical line drawn from the center [...] No substantial global coronal imbalance. Sagittal Vertical [place] (A vertical line drawn from the center [...] status documented in this encounter Care Teams Pipe Fitter Fire Sprinkler Systems Relationship Specialty Start Date End Date Keri Elias PCP - General Family Practice 03/12/15 9 MD Ira Glez David Wayne, MD Orthopedics 07/09/[address] [place] [address] Astrid Rios PA-C Physician Director Life Sales Physician Director Life Sales - 07/09/14 Surgical documented as of this encounter
--- OUTSIDE RECORDS SUMMARY | 2021-12-22 08:39 | XMS_ITS | Encounter Summary ---
:1980 Author Organization [place] Address [address] [facility] [place] [address] Care Team Providers Name Role Phone Bebeto Roth MD Unavailable Astrid Rios PA-C Unavailable Keri Elias MD Primary Care Provider Unavailable Reason for Referral Diagnostic Imaging XR - Closed Specialty Diagnoses / Procedures Referred By Contact Refer red To Contact Diagnoses Scoliosis Bebeto Roth MD Procedures XR Six Foot Standing Extremities [address] [place], [place] [address] Referral ID Status Reason Start Date Expiration Date Visits Requ ested Visits Authorized [id number] Closed 04/17/2018 04/17/2019 1 1 RITY SYSTEM ADMINISTRATOR Diagnostic Imaging XR - Closed Specialty Diagnoses / Procedures Referred By Contact Refer red To Contact Diagnoses Bebeto Rene MD Procedures XR Spine Complete Scoliosis 2 Views [address] [place], [place] [address] Referral ID Status Reason Start Date Expiration Date Visits Requ ested Visits Authorized [id number] Closed 04/17/2018 04/17/2019 1 1 RITY SYSTEM ADMINISTRATOR Encounter Details Date Type Department Care Team Description 04/17/2018 Orders Only [facility] Orthopaedic Bebeto Roth is (Primary Dx) Clinic MD Devan [facility] [address] [place] [address] [phone] Social History Tobacco Use Types Packs/Day Years [...] Resu lts for this SCOLIOSIS 2 VIEWS SECURITY SYSTEM ADMINISTRATOR procedure are in the results section. XR SIX FOOT STANDING Routine 04/18/2018 9:23 AM Scoliosis R esults for this EXTREMITIES SECURITY SYSTEM ADMINISTRATOR procedure are i n the results section. documented in this encounter Results XR Spine Complete Scoliosis 2 Views (04/18/2018 9:23 AM SECURITY SYSTEM ADMINISTRATOR) Anatomical Region Laterality Modality Spine Computed Radiography Specimen (Source) Anatomical Location Collection Method / Collectio n Time Received Time / Laterality Volume Impressions 04/18/2018 3:19 PM SECURITY SYSTEM ADMINISTRATOR Impression: 1. Fusion hardware from T4 through L3 wi thout evidence of hardware complication. 2. Mild convex right curvature of the th oracolumbar/lumbar spine with apex at T12. 3. No substantial global coronal imbalan ce. 4. Normal sagittal vertical axis. MADALYN ZARAGOZA MD Narrative 04/18/2018 3:19 PM SECURITY SYSTEM ADMINISTRATOR Exam: XR SIX FOOT STANDING EXTREMITIES, XR [...] No substantial global coronal imbalance. Sagittal Vertical Powderly (A vertical line drawn from the center [...] No substantial global coronal imbalance. Sagittal Vertical Powderly (A vertical line drawn from the center [...] Six Foot Standing Extremities (04/18/2018 9:23 AM SECURITY SYSTEM ADMINISTRATOR) Anatomical Region Laterality Modality Lower Extremity Computed Radiography Specimen (Source) Anatomical Location Collection Method / Collectio n Time Received Time / Laterality Volume Impressions 04/18/2018 3:19 PM SECURITY SYSTEM ADMINISTRATOR Impression: 1. Fusion hardware from T4 through L3 wi thout evidence of hardware complication. 2. Mild convex right curvature of the th oracolumbar/lumbar spine with apex at T12. 3. No substantial global coronal imbalan ce. 4. Normal sagittal vertical axis. MADALYN ZARAGOZA MD Narrative 04/18/2018 3:19 PM SECURITY SYSTEM ADMINISTRATOR Exam: XR SIX FOOT STANDING EXTREMITIES, XR [...] No substantial global coronal imbalance. Sagittal Vertical Powderly (A vertical line drawn from the center [...] No substantial global coronal imbalance. Sagittal Vertical Powderly (A vertical line drawn from the center [...] ic documented in this encounter Care Teams Ramp Service Agent Relationship Specialty Start Date End Date Keri Elias PCP - General Family Practice 03/12/15 9 MD Ira Glez David Wayne, MD Orthopedics 07/09/[address] [place] [address] Astrid Rios PA-C Physician Tread Booker Physician Tread Booker - 07/09/14 Surgical documented as of this encounter
--- OUTSIDE RECORDS SUMMARY | 2021-12-22 08:39 | XMS_ITS | Encounter Summary ---
:1980 Author Organization [place] Address [address] [facility] [place] [address] Care Team Providers Name Role Phone Bebeto Roth MD Unavailable Astrid Rios PA-C Unavailable Keri Elias MD Primary Care Provider Unavailable Encounter Details Date Type Department Care Team Description 01/19/2018 Orders Only [facility] Keri Elias Acne vu lgaris (Primary Medicine Clinic MD [place] Dx) [address] [place] [address], [address] [place], [place] [address] Social History Tobacco Use Types [...] acne documented in this encounter Care Teams Resource Conservation Manager Relationship Specialty Start Date End Date Keri Elias PCP - General Family Practice 03/12/15 9 MD Ira Glez David Wayne, MD Orthopedics 07/09/[address] [place] [address] Astrid Rios PA-C Physician Bilingual Loan Processor Physician Bilingual Loan Processor - 07/09/14 Surgical documented as of this encounter
--- OUTSIDE RECORDS SUMMARY | 2021-12-22 08:39 | XMS_ITS | Encounter Summary ---
:1980 Author Organization [place] Address [address] [facility] [place] [address] Care Team Providers Name Role Phone Bebeto Roth MD Unavailable Astrid Rios PA-C Unavailable Francisco Metz MD Primary Care Provider [phone] Reason for Referral Diagnostic Imaging XR (Routine) - Closed Specialty Diagnoses / Procedures Referred By Contact Refer red To Contact Diagnoses Adolescent idiopathic scoliosis of thoracolumbar region Bebeto Roth MD Procedures XR Spine Complete Scoliosis [address] [place], [place] [address] Referral ID Status Reason Start Date Expiration Date Visits Requ ested Visits Authorized [id number] Closed 12/31/2018 12/31/2019 1 1 AND PHYSICS INSTRUCTOR Diagnostic Imaging XR (Routine) - Closed Specialty Diagnoses / Procedures Referred By Contact Refer red To Contact Diagnoses Adolescent idiopathic scoliosis of thoracolumbar region Bebeto Roth MD Procedures XR Six Foot Standing Extremities [address] [place], [place] [address] Referral ID Status Reason Start Date Expiration Date Visits Requ ested Visits Authorized [id number] Closed 12/31/2018 12/31/2019 1 1 AND PHYSICS INSTRUCTOR Encounter Details Date Type Department Care Team Description 12/31/2018 Orders Only [facility] Orthopaedic Bebeto Roth is (Primary Dx); Clinic MD Devan Adolescent idiopathic scoliosis of thora formerly [facility] [address] [facility] [address] [place] [id number] Social History Tobacco Use Types Packs/Day Years [...] idiopath ic Adolescent idiopathic scoliosis of thora formerly [facility] Scoliosis (and kyphoscoliosis), idiopath ic documented in this encounter Care Teams Satellite Dish Repairer Relationship Specialty Start Date End Date Francisco Metz PCP - General Family Practice 11/14/18 04/02/20 MD Stevie Bebeto Roth MD Orthopedics 07/09/14 [place] [address] [place], [place] [id number] Astrid Rios PA-C Physician Fiberglass Fabricator Physician Fiberglass Fabricator - 07/09/14 Surgical documented as of this encounter
--- OUTSIDE RECORDS SUMMARY | 2021-12-22 08:39 | XMS_ITS | Encounter Summary ---
:1980 Author Organization [place] Address [address] [place] [address] Care Team Providers Name Role Phone Bebeto Roth MD Unavailable Astrid Rios PA-C Unavailable Keri Elias MD Primary Care Provider Unavailable Reason for Visit Reason Onset Date Comments Opioid Refill 11/22/2017 Oxycodone and ROBAXI N Encounter Details Date Type Department Care Team Description 11/22/2017 [facility] Bebeto Roth Opioid Refill Clinic MD Devan (Oxycodone and ROBAXIN) [address] [place] [id number] Social History Tobacco Use Types Packs/Day Years Used Date Smoking Tobacco: Never Smokeless Tobacco: Never Alcohol Use Standard Drinks/Week Comments No 0 (1 standard drink = 0.6 oz pure alcoho l) Sex Assigned at Date Recorded Not on file documented as of this encounter Miscellaneous Notes Telephone Encounter - Freedom Abdallaclaudia Skinner - 11/22/2017 10:46 AM CDT [facility] Call Center Phone Message May a [...] status documented in this encounter Care Teams Car Head Liner Installer Relationship Specialty Start Date End Date Keri Elias PCP - General Family Practice 03/12/15 MD Ira Abrams, Bebeto Hartman MD Orthopedics 07/09/[address] [place] [address] Astrid Rios PA-C Physician Dietitian Research Physician Dietitian Research - 07/09/14 Surgical documented as of this encounter
--- OUTSIDE RECORDS SUMMARY | 2021-12-22 08:39 | XMS_ITS | Encounter Summary ---
:1980 Author Organization [place] Address [address] [facility] [place] [address] Care Team Providers Name Role Phone Bebeto Roth MD Unavailable Astrid Rios PA-C Unavailable Francisco Metz MD Primary Care Provider [phone] Reason for Visit Reason Onset Date Comments Symptoms 02/18/2019 Encounter Details Date Type Department Care Team Description 02/18/2019 Telephone [facility] Medicine Francisco Metz, Symptoms Clinic [address], [address] [place] [address] [place], [place] [address] [phone] Social History Tobacco Use Types Packs/Day Years [...] size of golf balls, hgb is 11.7. [facility] tried contacting their OB provider to do [...] going home, to be seen at our [facility] emergency department for a second opinion. RN inquired if she has a rickshaw driver, out of concern for potential dizziness. 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 Alanna Sanders RN ER BLANKET Telephone Encounter - Ursula Barnes - 02/18/2019 2:00 PM CST [facility] Family Medicine phone call message-patient reporting a [...] within 3 hours, unless emergent Primary language: Slovak Pvc Monitor needed? No Call taken on February 18, 2019 at 2:01 PM by Ursula Barnes ER BLANKET documented in this encounter Plan of Treatment Not on filedocumented as of this encounter Visit Diagnoses Not on filedocumented in this encounter Care Teams Production Bow Maker Relationship Specialty Start Date End Date Francisco Metz PCP - General Family Practice 11/14/18 04/02/20 MD Stevie Bebeto Roth MD Orthopedics 07/09/[address] [place] [address] Astrid Rios PA-C Physician Supervisor Cytology Physician Supervisor Cytology - 07/09/14 Surgical documented as of this encounter
--- OUTSIDE RECORDS SUMMARY | 2021-12-22 08:39 | XMS_ITS | Encounter Summary ---
:1980 Author Organization [place] Address [address] [facility] [place] [address] Care Team Providers Name Role Phone Bebeto Roth MD Unavailable Astrid Rios PA-C Unavailable Francisco Metz MD Primary Care Provider [phone] Encounter Details Date Type Department Care Team Description 01/09/2019 Orders Only [facility] Clinic MD Tamar anemia, unspecified [address], [address] [place] [address] iron deficiency anemia [address] [facility] 104 type (Primary Dx) [place], [place] [address] [place], [place] [phone] Social History Tobacco Use Types Packs/Day Years [...] Primary documented in this encounter Care Teams Ticker Installer Relationship Specialty Start Date End Date Francisco Metz PCP - General Family Practice 11/14/18 04/02/20 MD Stevie Bebeto Roth MD Orthopedics 07/09/14 [facility] [place] [address] Astrid Rios PA-C Physician Electric Power Line Repairer Physician Electric Power Line Repairer - 07/09/14 Surgical documented as of this encounter
--- OUTSIDE RECORDS SUMMARY | 2021-12-22 08:39 | XMS_ITS | Encounter Summary ---
:1980 Author Organization [place] Address [facility] [place] [address] Care Team Providers Name Role Phone Bebeto Roth MD Unavailable Astrid Rios PA-C Unavailable Keri Elias MD Primary Care Provider Unavailable Reason for Visit Reason Comments Surgical Followup 12 wk pop DOS 10/23/17 Surgical Followup Encounter Details Date Type Department Care Team Description 01/17/2018 Office Visit [facility] Orthopaedic Bebeto Roth S/P spi nal fusion Clinic MD Devan (Primary Dx) [address] [place] [address] [place] [address] Social History Tobacco Use Types Packs/Day Years Used Date Smoking Tobacco: Never Smokeless Tobacco: Never Alcohol Use Standard Drinks/Week Comments No 0 (1 standard drink = 0.6 oz pure alcoho l) Sex Assigned at Date Recorded Not on file documented as of this encounter Progress Notes Bebeto Roth MD - 01/17/2018 7:45 AM CST [facility] Orthopedics Bebeto Roth MD 01/17/2018 Name: [...] or symptoms distally. SRS 64% KYLEE: 12 [id number]: 32 Pain scale: 2.5/10 Physical Examination: Focused [...] No Joint stiffness: No Bone fracture: No PACKAGER documented in this encounter Nursing Notes Catherine Peralta, ATC - 01/17/2018 7:45 AM CST Reason For Visit: Chief Complaint Patient presents with ??? Spine - Surgical Followup ??? Surgical Followup 12 wk pop DOS 10/23/17 Primary MD: Keri Elias MD: Self Referred ?? Treatment Specialist? 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 Work [...] data might be hidden Catherine Peralta ATC PACKAGER documented in this encounter Plan of Treatment Not on filedocumented as of this encounter Visit Diagnoses Diagnosis S/P spinal fusion - Primary Arthrodesis status documented in this encounter Care Teams Machine Tester Relationship Specialty Start Date End Date Keri Elias PCP - General Family Practice 03/12/15 9 MD Ira Glez David Wayne, MD Orthopedics 07/09/[address] [place] [address] Astrid Rios PA-C Physician Patient Service Rep Physician Patient Service Rep - 07/09/14 Surgical documented as of this encounter
--- OUTSIDE RECORDS SUMMARY | 2021-12-22 08:39 | XMS_ITS | Encounter Summary ---
:1980 Author Organization [place] Address [address] [facility] [place] [address] Care Team Providers Name Role Phone Bebeto Roth MD Unavailable Astrid Rios PA-C Unavailable Francisco Metz MD Primary Care Provider [phone] Encounter Details Date Type Department Care Team [...] on filedocumented in this encounter Care Teams Mfts Relationship Specialty Start Date End Date Francisco Metz PCP - General Family Practice 11/14/18 04/02/20 MD Stevie Bebeto Roth MD Orthopedics 07/09/[address] [place], [place] [phone] Astrid Rios PA-C Physician Spark Tester Physician Spark Tester - 07/09/14 Surgical documented as of this encounter
--- OUTSIDE RECORDS SUMMARY | 2021-12-22 08:40 | XMS_ITS | Encounter Summary ---
:1980 Author Organization [place] Address [facility]0 [facility] [place] [address] Care Team Providers Name Role Phone Myles De Oliveira MD Unavailable Astrid Rios PA-C Unavailable Keri Elias MD Primary Care Provider Unavailable Reason for Visit Auth/Cert Specialty Diagnoses / Procedures Referred By Contact Refer red To Contact Surgery Diagnoses Scoliosis Kyphosis Ur Periop Procedures PROCEDURE PLACEHOLDER ORTHO [address] [place] [address] Phone: Fax: Referral ID Status Reason Start Date Expiration Date Visits Requ ested Visits Authorized [id number] 1 1 Encounter Details Date Type Department Care Team Description 10/23/2017 [facility] Myles De Oliveira Exten dayna Of Fusion PeriOp Services MD Devan Thoracic 4-Thoracic 10, 245 [facility] [address] Miguel Khan [place] [address] [place], [place] Osteotomies Thoracic [phone] [id number] Surgery Details Date/Time Status Location OR Service Patient Case Case Traum a Class Class Type Case? 10/23/17 7:30 Posted UR OR UR OR Orthopedics Surgery AM 14 Admit Panel 1 Procedure LRB Anes Op Region Wound Class Commen ts Extension Of Fusion N/A General Spine I-Clean Exten dayna Of Fusion Thoracic 4-Thoracic 10, T horacic 4-Thoracic 10, Rivera Khan Osteotomies Mgiuel Khan Thoracic 6-10 Osteotomies Thoracic 6-10 Surgeon Surgeon Role Service Panel Myles De Oliveira MD Primary Orthopedics 1 Huong Sotck PA-C Assisting 1 Special Needs Ricardo Saver [...] 12/13/2017 3:00 PM Myles De Oliveira MD [facility] 01/17/2018 7:45 AM Myles De Oliveira MD [facility] Orthopaedic Surgery appointments are at the [facility] ([address] [place] [address]). Call [phone] to schedule a follow-up appointment at this [...] CHANGED Details fluticasone (FLONASE) 50 MCG/ACT spray Palacios 1-2 sprays into both nostrils daily, Disp-16 g, R-3, E-Prescribe pseudoePHEDrine (SUDAFED) 120 MG 12 hr tablet Take 120 mg by mouth every morning, Historical STOP taking these medications ibuprofen (ADVIL/MOTRIN) 600 MG tablet Comments: Reason for Stopping: Discharge Procedure Orders Reason for your hospital stay Order Comments: You were hospitalized after surgery for pain control and therapy. Adult [facility] Follow-up and recommended labs and tests Order Comments: You have an appointment with Dr. De Oliveira on 12/13/17. [facility] ([address] [place] [address]). Call [phone] to schedule a follow-up appointment at this [...] from 7 am to 7 pm daily [facility] ([address] [place] [address]). -Pain control: Take medication as prescribed, but [...] help keep you hydrated. -CALL OUR CLINIC ([phone] during regular office hours, or [phone] for the on-call residentMD for questions - [...] Start Date End Date fluticasone (FLONASE) 50 Palacios 1-2 sprays 16 g 3 07/05 MCG/ACT [...] prior to contacting the Orthopaedic Surgery resident habilitation assistant. Thank you! Sunni Hernandez MD - 10/26/2017 1:21 PM CDT Urinary retention No BM yet Ambulating with PT Last night nursing notes reviewed No cp No sob No fever No chills No vomiting No loss of consciousness Vital signs: Temp: 99.1 ??F (37.3 ??C) Temp src: Oral BP: 97/50 Pulse: 114 Heart Rate: 103 Resp: 16 SpO2: 98 % [id number]: None (Room air) Oxygen Delivery: 6 LPM [...] Rivera RN - 10/26/2017 10:58 AM CDT Research Soil Scientist Progress Note Admission Date/Time: 10/23/2017 Attending MD: [...] Plan: home Angelica RAMOSN RN CCM RN Research Soil Scientist 10A E-mail: [email or web address] Pager: [phone] To contact weekend RNCC, dial * [phone] and enter pager number [phone] at prompt. [...] narcotic medication. Continue to monitor. May require floerz catheter replacement if continues to require straight [...] prior to contacting the Orthopaedic Surgery resident habilitation assistant. Thank you! Sunni Otoole MD - 10/25/2017 [...] Mobility Skill: Sit to Supine Level of Bee: Sit/Supine stand-by assist Bed Mobility Skill: Supine to Sit Level of Bee: Supine/Sit stand-by assist Transfer Skill: Bed to Chair/Chair to Bed Level of Bee: Bed to Chair stand-by assist Assistive Device - Transfer Skill Bed to Chair Chair to Bed Rehab Eval standard walker Transfer Skill: Sit to Stand Level of Bee: Sit/Stand stand-by assist Assistive Device for Transfer: Sit/Stand standard walker Transfer Skill: Toilet Transfer Level of Bee: Toilet stand-by assist Upper Body Dressing Level of Bee: Dress Upper Body independent Lower Body Dressing Level of Bee: Dress Lower Body stand-by assist Toileting Level of Bee: Toilet stand-by assist Grooming Level of Bee: Grooming independent Eating/Self Feeding Level of Bee: Eating independent Activities of Daily Living Analysis Impairments Contributing to Impaired Activities of Daily Living pain;post surgical precautions;ROM decreased Clinical Impression Criteria for Skilled Therapeutic Interventions Met evaluation only Risks and Benefits of Treatment have been explained. Yes Patient, Family & other staff in agreement with plan of care Yes [facility]-PAC TM 6 Clicks ?? 2016, Trustees of [facility], under license to CME. All rights reserved. 6 Clicks Short Forms Daily Activity Inpatient Short Form [facility] AM-PAC??? 6 Clicks Daily Activity Inpatient [...] prior to contacting the Orthopaedic Surgery resident habilitation assistant. Thank you! Sunni Hernandez MD - 10/24/2017 [...] Pericolace . Add miralax Discuss with ortho QUALITY CONTROL PROJECTIONIST and care team rounds Tala Roche Pt, PT - 10/24/2017 10:19 AM CDT 10/24/17 1004 Quick Adds Type of Visit Initial PT Evaluation Computer Systems Software Engineer Computer Systems Software Engineer Present no Language French Living Environment Lives With child(gabino), dependent;significant other [...] in agreement with plan of care Yes [facility]-PAC TM 6 Clicks ?? 2016, Trustees of [facility], under license to CME. All rights reserved. 6 Clicks Short Forms Basic Mobility Inpatient Short Form [facility]??? 6 Clicks V.2 Basic Mobility Inpatient [...] prior to contacting the Orthopaedic Surgery resident habilitation assistant. Thank you! documented in this encounter Consult Notes Michael Hilario MD - 10/23/2017 3:54 PM CDTAssociated Order(s): INTERNAL MEDICINE ADULT IP CONSULT FOR [facility] INTERNAL MEDICINE CONSULTATION REQUESTING PHYSICIAN: Myles De Oliveira MD REASON FOR CONSULTATION: For recommendations for medical comorbidities. Assessment Jocelin Garg is a 37 year old female admitted on 10/23/2017 for spinal Sx 1) Extension Of Fusion Thoracic 4-Thoracic 10, Rivera Khan Osteotomies Thoracic 6-10 post op D# 0 Hemodynamics: stable - continue on IV fluids, until adequate PO. Analgesia: adequate , on TELEVISION INSTALLER HELPER Antiemetics: as per protocol. If does not [...] with any questions. Michael Hilario MD (Pager- [phone]) Internal Medicine/ Hospitalist CHIEF COMPLAINT: 37 year [...] to Encounter: fluticasone (FLONASE) 50 MCG/ACT spray Palacios 1-2 sprays into both nostrils daily (Patient taking differently: Palacios 1-2 sprays into both nostrils as needed [...] a 37 year old female who speaks French. Procedure Procedure(s): Extension Of Fusion Thoracic 4-Thoracic [...] mg (total dose) last given at 1245 TELEVISION INSTALLER HELPER / epidural Yes. TELEVISION INSTALLER HELPER - hydromorphone (Dilaudid) Capnography Yes Telemetry ECG Rhythm: Normal sinus rhythm Inpatient Wild Life Photographer Ordered? No Labs Glucose Lab Results Component Value Date GLC 90 09/29/2017 Hgb Lab Results Component Value Date HGB 12.5 09/29/2017 INR Lab Results Component Value Date INR 1.02 09/29/2017 PACU Imaging Not applicable Wound/Incision Incision/Surgical Site 10/23/17 Back (Active) Incision Assessment [facility] 10/23/2017 11:18 AM Closure Approximated;Liquid [...] 10/23/17 Left Lower forearm (Active) Site Assessment [facility] 10/23/2017 12:07 PM Line Status [...] Date 10/23/17 0700 - 10/24/17 0659 Shift 4180-4879 7878-8071 4351-9784 24 Hour Total I N T A K E I.V. 1450 1450 Shift Total (mL/kg) 1450 (21.05) 1450 (21.05) O U T P U T Urine 100 100 Blood 310 310 Shift Total (mL/kg) 410 (5.95) 410 (5.95) Weight (kg) 68.9 68.9 68.9 68.9 Drains / Florez Closed/Suction Drain Back Accordion 10 [place] (Active) Site Description [facility] 10/23/2017 12:07 PM Dressing Status Normal: Clean, Dry & Intact 10/23/2017 12:07 PM Drainage Appearance Normal 10/23/2017 12:07 PM Number of days:0 Urethral Catheter Latex 16 fr (Active) Tube Description [facility] 10/23/2017 12:07 PM Collection Container Standard [...] needing completion None René Esposito, RN ASCOM [id number] documented in this encounter Miscellaneous Notes Plan [...] goal(s). See goals on Care Plan in [facility] electronic health record for goal details. Goals met Therapy recommendation(s): Continue home exercise program. Plan of Care - Jocelin Mayes PT - 10/26/2017 10:32 AM CDT Problem: Patient Care Overview Goal: Plan of Care/Patient Progress Review Lathe Spotter PT Patient plan for discharge: Home Current [...] Overview Goal: Plan of Care/Patient Progress Review Lathe Spotter PT Patient plan for discharge: Home with [...] Additional Info: Pt very anxious throughout shift, designer writer listened to pt's concerns and addressed [...] had oxycodone dose increased to 10-15mg. Dilaudid TELEVISION INSTALLER HELPER discontinued this am.Offered ice packs but pt [...] spend the night Plan of Care - aTla Roche Pt, PT - 10/24/2017 10:32 AM CDT Problem: Patient Care Overview Goal: Plan of Care/Patient Progress Review Lathe Spotter PT Patient plan for discharge: Home with [...] Care/Patient Progress Review A/O x 4. Increased TELEVISION INSTALLER HELPER from 0.2 to 0.3 due to inadequate [...] 1 Skin: Intact Pain: Moderate. Manageable w/ TELEVISION INSTALLER HELPER pump. Neuro/CMS: Intact, no numbness or tingling reported Dressing(s): Posterior back CDI Diet: Clear liquids, tolerating well. Equipment: CAPNO TELEVISION INSTALLER HELPER pump IV's/Drains: PIV R hand infusing NS 100mL/hr and TELEVISION INSTALLER HELPER pump Hemovac - 0ccs Florez - patent Plan: Continue to monitor Additional Info: Discontinue TELEVISION INSTALLER HELPER pump POD #1 Discontinue florez POD #1 [...] of surgical incisions and hemovac replacement Pain: TELEVISION INSTALLER HELPER dilaudid on and verified. Pt has discomfort in lower back. And bladder Neuro/CMS: Intact denies numbness and tingling. Prior to surgery pt had intermittently tingling in BL feet. Dressing(s): CDI Aquacel posterior from neck down to Buttocks. hemovac in place CDI. Diet: C.liq. Nausea Zofran given LDA: PIV left hand running LR and Dilaudid TELEVISION INSTALLER HELPER. R hand piv SL. Hemovac in place and patent. Aquacel. Florez catheter. Equipment: IV pole, PCDs, TELEVISION INSTALLER HELPER pump. CAPNO Plan: TBT Additional Info: Pt [...] Myles De Oliveira MD N/A None available Farmworker Grain(s): Huong Stock PA-C Anesthesia: General Estimated blood [...] to PACU Plan: Pain: Scheduled Tylenol, Dilaudid TELEVISION INSTALLER HELPER, oxycodone PRN, Valium PRN Activity: Weight bearing [...] in 5-7 days. Huong Stock PA-C Pager: [phone] If no answer or after 4pm, please page the habilitation assistant ortho resident. Op Note - Myles De [...] T4-T9 3. Reinsertion spinal instrumentation T10 4. Rivera-Khna osteotomies T6-7 through T9-10 5. Image guided surgery SURGEON: Myles De Oliveira Jr., MD STITCHING MACHINE FEEDER OR OFFBEARER: Huong Stock PA-C. No qualified resident was [...] then turned in position prone on a [employer] 4-railroad mechanic frame. She was prepared and draped in [...] the O- arm and transferred to the PerfectPost image-guided workstation. This was now used to [...] CC Name: JOCELIN PINEDO MRN: [id number] Account: [id number] : 1980 Procedure Date: 10/23/2017 Document: [id number] cc: Copy for Patient Keri Mitchell Beaulieu [...] spine. Positive global coronal imbalance. Sagittal Vertical [place] (A vertical line drawn from the center [...] spine. Positive global coronal imbalance. Sagittal Vertical [place] (A vertical line drawn from the center [...] Component Value Ref Test Analysis [facility] Range Method Time Signature Color Urine Light Yellow 10/26/2017 [facility] 3:08 PM CDT [facility] Appearance Urine Clear 10/26/2017 [facility] O F 3:08 PM T [facility] Glucose Urine Negative NEG^Nega 10/26/2017 [facility] tive 3:08 PM CDT [facility] mg/dL [facility] Bilirubin Urine Negative NEG^Nega 10/26/2017 [facility] 3:08 PM T [facility] Ketones Urine 10 (A) NEG^Nega 10/26/2017 [facility] tive 3:08 PM CDT [facility] mg/dL [facility] Specific [place] 1.005 1.003 - 10/26/2017 [place] [facility] Urine 1.035 3:08 PM T [facility] Blood Urine Moderate (A) NEG^Nega 10/26/2017 [facility] tive 3:08 PM T [facility] pH Urine 6.5 5.0 - 10/26/2017 [facility] 7.0 pH 3:08 PM T [facility] Protein Albumin Negative NEG^Nega 10/26/2017 [facility] Urine tive 3:08 PM CDT [facility] mg/dL [facility] Urobilinogen Normal 0.0 - 10/26/2017 [facility] mg/dL 2.0 3:08 PM CDT [facility] mg/dL [facility] Nitrite Urine Negative NEG^Nega 10/26/2017 [facility] tive 3:08 PM CDT [facility] Leukocyte Negative NEG^Nega 10/26/2017 [facility] Esterase Urine tive 3:08 PM CDT [facility] Source Unspecified 10/26/2017 [facility] Urine 2:54 PM CDT [facility] WBC Urine 1 0 - 5 10/26/2017 [facility] /HPF 3:08 PM CDT [facility] RBC Urine 1 0 - 2 10/26/2017 [facility] /HPF 3:08 PM CDT [facility] Squamous <1 0 - 1 10/26/2017 [facility] Epithelial /HPF /HPF 3:08 PM CDT [facility] Specimen (Source) Anatomical Collection Method Collection Time Re ceived Time Location / / Volume Laterality Unspecified Urine URINE SPECIMEN 10/26/2017 2:40 10/26 2:54 OBTAINED BY CLEAN PM CDT PM CDT CATCH PROCEDURE / Unknown Sunni Hernandez MD LAB - URINE ORDERABLES Performing Organization Address City/State/ZIP Code Phon e Number [facility] [address] [place] [address] [facility] (ABNORMAL) CBC with platelets (10/26/2017 8:00 AM CDT) [facility] gist Method Time Signature WBC 6.1 4.0 - 11.0 10/26/2017 [facility] 10e9/L 8:24 AM CDT [facility] RBC Count 3.88 3.8 - 5.2 10/26/2017 [facility] 10e12/L 8:24 AM CDT [facility] Hemoglobin 9.9 (L) 11.7 - 10/26/2017 [facility] 15.7 g/dL 8:24 AM CDT [facility] Hematocrit 30.5 (L) 35.0 - 10/26/2017 [facility] 47.0 % 8:24 AM T [facility] MCV 79 78 - 100 10/26/2017 [facility] fl 8:24 AM CDT [facility] MCH 25.5 (L) 26.5 - 10/26/2017 [facility] 33.0 pg 8:24 AM CDT [facility] MCHC 32.5 31.5 - 10/26/2017 [facility] 36.5 g/dL 8:24 AM CDT [facility] RDW 13.3 10.0 - 10/26/2017 [facility] 15.0 % 8:24 AM CDT [facility] Platelet Count 244 150 - 450 10/26/2017 [facility] 10e9/L 8:24 AM CDT [facility] Specimen Anatomical Collection Method Collection Time Receive d Time (Source) Location / / Volume Laterality Blood specimen 10/26/2017 8:00 AM 018 8:01 (specimen) CDT AM CDT Huong Stock PA-C LAB - BLOOD ORDERABLES Performing Organization Address City/State/ZIP Code Phon e Number [facility] [address] [place] [address] [facility] (ABNORMAL) Glucose by meter (10/25/2017 8:34 AM [...] 10/25/2017 [facility] 10e9/L 6:34 AM CDT [facility] RBC Count 4.03 3.8 - 5.2 10/25/2017 [facility] 10e12/L 6:34 AM CDT [facility] Hemoglobin 10.2 (L) 11.7 - 10/25/2017 [facility] 15.7 g/dL 6:34 AM CDT [facility] Hematocrit 32.0 (L) 35.0 - 10/25/2017 [facility] 47.0 % 6:34 AM CDT [facility] MCV 79 78 - 100 10/25/2017 [facility] fl 6:34 AM CDT [facility] MCH 25.3 (L) 26.5 - 10/25/2017 [facility] 33.0 pg 6:34 AM CDT [facility] MCHC 31.9 31.5 - 10/25/2017 [facility] 36.5 g/dL 6:34 AM CDT [facility] RDW 13.5 10.0 - 10/25/2017 [facility] 15.0 % 6:34 AM CDT [facility] Platelet Count 248 150 - 450 10/25/2017 [facility] 10e9/L 6:34 AM CDT [facility] Specimen Anatomical Collection Method Collection Time Receive d Time (Source) Location / / Volume Laterality Blood specimen 10/25/2017 6:26 AM 018 6:28 (specimen) CDT AM CDT Huong Stock PA-C LAB - BLOOD ORDERABLES Performing Organization Address City/State/ZIP Code Phon e Number [facility] [address] [place] [address] [facility] (ABNORMAL) CBC with platelets (10/24/2017 7:05 AM CDT) [facility] Method Time Signature WBC 8.8 4.0 - 11.0 10/24/2017 [facility] 10e9/L 7:17 AM CDT [facility] RBC Count 4.04 3.8 - 5.2 10/24/2017 [facility] 10e12/L 7:17 AM CDT [facility] Hemoglobin 10.2 (L) 11.7 - 10/24/2017 [facility] 15.7 g/dL 7:17 AM CDT [facility] Hematocrit 32.2 (L) 35.0 - 10/24/2017 [facility] 47.0 % 7:17 AM CDT [facility] MCV 80 78 - 100 10/24/2017 [facility] 7:17 AM CDT [facility] MCH 25.2 (L) 26.5 - 10/24/2017 [facility] 33.0 pg 7:17 AM CDT [facility] MCHC 31.7 31.5 - 10/24/2017 [facility] 36.5 g/dL 7:17 AM CDT [facility] RDW 13.3 10.0 - 10/24/2017 [facility] 15.0 % 7:17 AM CDT [facility] Platelet Count 235 150 - 450 10/24/2017 [facility] 10e9/L 7:17 AM T [facility] Specimen Anatomical Collection Method Collection Time Receive d Time (Source) Location / / Volume Laterality Blood specimen 10/24/2017 7:05 AM 018 7:06 (specimen) CDT AM CDT Huong Stock PA-C LAB - BLOOD ORDERABLES Performing Organization Address City/State/ZIP Code Phon e Number [facility] [address] [place] [address] [facility] (ABNORMAL) Basic metabolic panel (10/24/2017 7:05 AM CDT) Analysis Performed At Patho logist Time Signature Sodium 144 133 - 144 10/24/2017 [facility] mmol/L 7:33 AM [facility] Potassium 3.6 3.4 - 5.3 10/24/2017 [facility] mmol/L 7:33 AM [facility] Chloride 110 (H) 94 - 109 10/24/2017 [facility] mmol/L 7:33 AM [facility] Carbon Dioxide 27 20 - 32 10/24/2017 [facility] mmol/L 7:33 AM [facility] Anion Gap 7 3 - 14 10/24/2017 [facility] mmol/L 7:33 AM [facility] Glucose 99 70 - 99 10/24/2017 [facility] mg/dL 7:33 AM [facility] Urea Nitrogen 6 (L) 7 - 30 10/24/2017 [facility] mg/dL 7:33 AM [facility] Creatinine 0.74 0.52 - 10/24/2017 [facility] 1.04 mg/dL 7:33 AM [facility] GFR Estimate 89 >60 10/24/2017 [facility] mL/min/1.7 7:[address] Comment: Non GFR Calc GFR Estimate If >90 >60 mL/min/1.7m2 10/24/2017 7:33 A [facility] Comment: GFR Calc Calcium 7.6 (L) 8.5 - 10.1 mg/dL 10/24/2017 7:33 AM CDT [facility] Specimen Anatomical Collection Method Collection Time Receive d Time (Source) Location / / Volume Laterality Blood specimen 10/24/2017 7:05 AM 018 7:06 (specimen) CDT AM CDT Huong Stock PA-C LAB - BLOOD ORDERABLES Performing Organization Address City/State/ZIP Code Phon e Number [facility] [address] [place] [address] [facility] (ABNORMAL) Glucose by meter (10/24/2017 2:17 AM [...] be read by a radiologist or a [place] non-radiologis t provider. Myles De Oliveira MD [...] Signature HCG Qual Urine Negative NEG^Negati 10/23/2017 [facility] 6:22 AM CDT [facility] Comment: This test is for screening purposes. ??R esults should be interpreted along with the clinical picture. ??Confirmation te sting is available if warranted by ordering [id number], HCG Quantitative Pregna ncy. Specimen Anatomical Collection Method Collection Time Receive d Time (Source) Location / / Volume Laterality Urine specimen URINE SPECIMEN / 10/23/2017 5:50 AM 11/2017 6:06 (specimen) Unknown CDT AM CDT Sarah Parry MD LAB - URINE ORDERABLES Performing Organization Address City/State/ZIP Code Phon e Number [facility] [address] [place], [place] [id number] [place] [address] EMG - HIM SCAN (10/23/2017 12:00 AM [...] used when administering multiple Central Nervous System (MEDIA DIRECTOR) depressing meds within a short time frame., Post-procedure Given 10/24/2017 6:06 AM CDT 25 mg diphenhydrAMINE (BENADRYL) injection 25 mg 25 mg, Intravenous, EVERY 6 HOURS PRN, i tching, Only give if patient unable to take PO., Starting on Mon10/23/17 at 1417, Caution to be us ed when administering multiple Central Nervous System (MEDIA DIRECTOR) de pressing meds within a short time [...] or analgesic side effects. Hold while on TELEVISION INSTALLER HELPER or with regular IV opioid dosing. Maximum [...] 10/27/2017 acetaminophen (TYLENOL) tablet 975 mg () 8334 ( Given - Provider: Rhonda Sheppard RN)8367 (Given - Provider: Patricia Gonsalez RN)8703 (Given - Provider: Emma Morales RN) 0707 [...] Reason: Med discontinued by Provider - Comment: support coordinator d/c'd)1148 (Given - Provider: Patricia Gonsalez, RN)2157 [...] used when administering multiple Central Nervous System (MEDIA DIRECTOR) depressing meds within a short time frame., Post-procedure diphenhydrAMINE (BENADRYL) injection 25 mg(Linked Grou p 2) 0327 (See Alternative - Provider: Rhonda Sheppard RN) 25 mg, Intravenous, EVERY 6 HOURS PRN, i tching, Only give if patient unable to take PO., Starting 10/23/17 at 1417, Caution to be used when administering multiple Central Nervous System (MEDIA DIRECTOR) depress ing meds within a short time [...] metoclopramide (REGLAN) injection 10 mg(Linked Group 3) 6757 (Given - Provider: Emma Morales RN) 10 [...] metoclopramide (REGLAN) tablet 10 mg(Linked Group 3) 1491 (See Alternative - Provider: Emma Morales RN) [...] Emma Morales RN) 0858 (Given - Provider: Houng Adams RN)2047 (Given - Provider: Emma Morales [...] or analgesic side effects. Hold while on TELEVISION INSTALLER HELPER or with regular IV opioid dosing. Maximum [...] used when administering multiple Central Nervous System (MEDIA DIRECTOR) depressing meds within a short time frame.
Post-procedure Or diphenhydrAMINE (BENADRYL) injection 25 mgJump to med 25 mg, Intravenous, EVERY 6 HOURS PRN, i tching, Only give if patient unable to take PO., Starting 10/23/17 at 1417
Caution to be used when administering multiple Central Nervous System (MEDIA DIRECTOR) depressing meds within a short time fra [...]
Post-procedure documented in this encounter Care Teams Press Set Up Relationship Specialty Start Date End Date Keri Elias PCP - General Family Practice 03/12/15 9 MD Ira Glez David Wayne, MD Orthopedics 07/09/[address] [place], [id number] Astrid Rios PA-C Physician [employer]worker [employer] Physician [employer]worker [employer] - 07/09/14 Surgical documented as of this encounter
--- OUTSIDE RECORDS SUMMARY | 2021-12-22 08:40 | XMS_ITS | Encounter Summary ---
:1980 Author Organization [facility] Address Formerly [facility] [place] [address] Care Team Providers Name Role Phone Myles De Oliveira MD Unavailable Astrid Rios PA-C Unavailable Keri Elias MD Primary Care Provider Unavailable Reason for Visit Auth/Cert Specialty Diagnoses / Procedures Referred By Contact Refer red To Contact Surgery Diagnoses Scoliosis Kyphosis Ur Periop Procedures PROCEDURE PLACEHOLDER ORTHO [facility] [place] [address] Phone: Fax: Referral ID Status Reason Start Date Expiration Date Visits Requ ested Visits Authorized [id number] 1 1 Encounter Details Date Type Department Care Team Description 10/23/2017 - Hospital Encounter [facility] Myles Romero S/P spinal fusion 10/27/2017 [facility] Unit 10A MD Devan (Primary Dx) [address] [place] [address] [place] [address] [address] [place], [place] [id number] Social History Tobacco Use Types Packs/Day Years [...] PM Myles De Oliveira MD [facility] 01/17/2018 7:45 AM Myles De Oliveira MD [facility] Orthopaedic Surgery appointments are at the [facility] ([address] [place] [address]). Call [phone] to schedule a follow-up appointment at this [...] CHANGED Details fluticasone (FLONASE) 50 MCG/ACT spray [place] 1-2 sprays into both nostrils daily, Disp-16 g, R-3, E-Prescribe pseudoePHEDrine (SUDAFED) 120 MG 12 hr tablet Take 120 mg by mouth every morning, Historical STOP taking these medications ibuprofen (ADVIL/MOTRIN) 600 MG tablet Comments: Reason for Stopping: Discharge Procedure Orders Reason for your hospital stay Order Comments: You were hospitalized after surgery for pain control and therapy. Adult [facility] Follow-up and recommended labs and tests Order Comments: You have an appointment with Dr. De Oliveira on 12/13/17. [facility] ([address] [place] [address]). Call [phone] to schedule a follow-up appointment at this [...] [facility] 7 am to 7 [facility] ([address] [place] [id number]). -Pain control: Take medication as prescribed, but [...] help keep you hydrated. -CALL OUR CLINIC ([phone] during regular office hours, or [phone] for the on-call residentMD for questions - [...] Start Date End Date fluticasone (FLONASE) 50 [place] 1-2 sprays 16 g 3 07/05 MCG/ACT [...] prior to contacting the Orthopaedic Surgery resident care transitions manager. Thank you! Sunni Hernandez MD - 10/26/2017 1:21 PM CDT Urinary retention No BM yet Ambulating with PT Last night nursing notes reviewed No cp No sob No fever No chills No vomiting No loss of consciousness Vital signs: Temp: 99.1 ??F (37.3 ??C) Temp src: Oral BP: 97/50 Pulse: 114 Heart Rate: 103 Resp: 16 SpO2: 98 % Y0Sockrt: None (Room air) Oxygen Delivery: 6 LPM [...] Rivera RN - 10/26/2017 10:58 AM CDT [employer] Research Scientist Progress Note Admission Date/Time: 10/23/2017 Attending [...] Anticipated Discharge Plan: home Angelica PADILLA RN [facility] RN Biofuels Research Scientist 10A E-mail: [email or web address] Pager: [phone] To contact weekend RNCC, dial [phone] and enter pager number [phone] at prompt. This pager can not be [...] prior to contacting the Orthopaedic Surgery resident care transitions manager. Thank you! Sunni Hernandez MD - 10/25/2017 [...] Mobility Skill: Sit to Supine Level of [place]: Sit/Supine stand-by assist Bed Mobility Skill: Supine to Sit Level of [place]: Supine/Sit stand-by assist Transfer Skill: Bed to Chair/Chair to Bed Level of [place]: Bed to Chair stand-by assist Assistive Device - Transfer Skill Bed to Chair Chair to Bed Rehab Eval standard walker Transfer Skill: Sit to Stand Level of [place]: Sit/Stand stand-by assist Assistive Device for Transfer: Sit/Stand standard walker Transfer Skill: Toilet Transfer Level of [place]: Toilet stand-by assist Upper Body Dressing Level of [place]: Dress Upper Body independent Lower Body Dressing Level of [place]: Dress Lower Body stand-by assist Toileting Level of [place]: Toilet stand-by assist Grooming Level of [place]: Grooming independent Eating/Self Feeding Level of [place]: Eating independent Activities of Daily Living Analysis Impairments Contributing to Impaired Activities of Daily Living pain;post surgical precautions;ROM decreased Clinical Impression Criteria for Skilled Therapeutic Interventions Met evaluation only Risks and Benefits of Treatment have been explained. Yes Patient, Family & other staff in agreement with plan of care Yes [facility] AM-PAC TM 6 Clicks ?? 2016, Trustees of [facility], under license to [employer]. All rights reserved. 6 Clicks Short Forms Daily Activity Inpatient Short Form [facility]-PAC??? 6 Clicks Daily Activity Inpatient Short Form [...] prior to contacting the Orthopaedic Surgery resident care transitions manager. Thank you! Sunni Otoole MD - 10/24/2017 [...] Pericolace . Add miralax Discuss with ortho RACK CLEANER and care team rounds Tala Roche Pt, PT - 10/24/2017 10:19 AM CDT 10/24/17 1004 Quick Adds Type of Visit Initial PT Evaluation Rehabilitation Services Counselor Rehabilitation Services Counselor Present no Language Greenlandic Living Environment Lives With child(gabino), dependent;significant other [...] in agreement with plan of care Yes [facility] AM-PAC TM 6 Clicks ?? 2016, Trustees of [facility], under license to [employer]. All rights reserved. 6 Clicks Short Forms Basic Mobility Inpatient Short Form [facility] AM-PAC??? 6 Clicks V.2 Basic Mobility [...] prior to contacting the Orthopaedic Surgery resident care transitions manager. Thank you! documented in this encounter Consult Notes Michael Hilario MD - 10/23/2017 3:54 PM CDTAssociated Order(s): INTERNAL MEDICINE ADULT IP CONSULT FOR [facility] INTERNAL MEDICINE CONSULTATION REQUESTING PHYSICIAN: Myles De Oliveira MD REASON FOR CONSULTATION: For recommendations for medical comorbidities. Assessment Jocelin Garg is a 37 year old female admitted on 10/23/2017 for spinal Sx 1) Extension Of Fusion Thoracic 4-Thoracic 10, Rivera Khan Osteotomies Thoracic 6-10 post op D# 0 Hemodynamics: stable - continue on IV fluids, until adequate PO. Analgesia: adequate , on COIL TESTER Antiemetics: as per protocol. If does not [...] with any questions. Michael Hilario MD (Pager- [phone]) Internal Medicine/ Hospitalist CHIEF COMPLAINT: 37 year [...] to Encounter: fluticasone (FLONASE) 50 MCG/ACT spray [place] 1-2 sprays into both nostrils daily (Patient taking differently: [place] 1-2 sprays into both nostrils as needed [...] a 37 year old female who speaks Greenlandic. Procedure Procedure(s): Extension Of Fusion Thoracic 4-Thoracic [...] mg (total dose) last given at 1245 COIL TESTER / epidural Yes. COIL TESTER - hydromorphone (Dilaudid) Capnography Yes Telemetry ECG Rhythm: Normal sinus rhythm Inpatient Field Support Technician Ordered? No Labs Glucose Lab Results Component Value Date GLC 90 09/29/2017 Hgb Lab Results Component Value Date HGB 12.5 09/29/2017 INR Lab Results Component Value Date INR 1.02 09/29/2017 PACU Imaging Not applicable Wound/Incision Incision/Surgical Site 10/23/17 Back (Active) Incision Assessment [facility] 10/23/2017 11:18 AM Closure Approximated;Liquid bandage 10/23/2017 [...] 10/23/17 Left Lower forearm (Active) Site Assessment [facility] 10/23/2017 12:07 PM Line Status Saline locked 10/23/2017 12:07 PM Phlebitis Scale 0-->no symptoms 10/23/2017 12:07 PM Infiltration Scale 0 10/23/2017 12:07 PM Infiltration Site Treatment Method None 10/23/2017 6:48 AM Extravasation? No 10/23/2017 6:48 AM Number of days:0 Peripheral IV 10/23/17 Right Lower forearm (Active) Site Assessment [facility] 10/23/2017 12:07 PM Line Status Infusing 10/23/2017 12:07 PM Phlebitis Scale 0-->no symptoms 10/23/2017 12:07 PM Infiltration Scale 0 10/23/2017 12:07 PM Number of days:0 Blood Products Not applicable EBL 310 mL Intake/Output Date 10/23/17 0700 - 10/24/17 0659 Shift 2294-2718 4333-8042 7917-5796 24 Hour Total I N T A K E I.V. 1450 1450 Shift Total (mL/kg) 1450 (21.05) 1450 (21.05) O U T P U T Urine 100 100 Blood 310 310 Shift Total (mL/kg) 410 (5.95) 410 (5.95) Weight (kg) 68.9 68.9 68.9 68.9 Drains / Florez Closed/Suction Drain Back Accordion 10 German (Active) Site Description [facility] 10/23/2017 12:07 PM Dressing Status Normal: Clean, Dry & Intact 10/23/2017 12:07 PM Drainage Appearance Normal 10/23/2017 12:07 PM Number of days:0 Urethral Catheter Latex 16 fr (Active) Tube Description [facility] 10/23/2017 12:07 PM Collection Container Standard [...] needing completion None René Esposito, RN ASCOM [id number] documented in this encounter Miscellaneous Notes Plan [...] goal(s). See goals on Care Plan in [facility] electronic health record for goal details. Goals met Therapy recommendation(s): Continue home exercise program. Plan of Care - Jocelin Mayes, PT - 10/26/2017 10:32 AM CDT Problem: Patient Care Overview Goal: Plan of Care/Patient Progress Review Diamond Driller PT Patient plan for discharge: Home Current [...] Overview Goal: Plan of Care/Patient Progress Review Diamond Driller PT Patient plan for discharge: Home with [...] Additional Info: Pt very anxious throughout shift, gag writer listened to pt's concerns and addressed [...] had oxycodone dose increased to 10-15mg. Dilaudid COIL TESTER discontinued this am.Offered ice packs but pt [...] Overview Goal: Plan of Care/Patient Progress Review Diamond Driller PT Patient plan for discharge: Home with [...] Care/Patient Progress Review A/O x 4. Increased COIL TESTER from 0.2 to 0.3 due to inadequate [...] 1 Skin: Intact Pain: Moderate. Manageable w/ COIL TESTER pump. Neuro/CMS: Intact, no numbness or tingling reported Dressing(s): Posterior back CDI Diet: Clear liquids, tolerating well. Equipment: CAPNO COIL TESTER pump IV's/Drains: PIV R hand infusing NS 100mL/hr and COIL TESTER pump Hemovac - 0ccs Florez - patent Plan: Continue to monitor Additional Info: Discontinue COIL TESTER pump POD #1 Discontinue florez POD #1 [...] of surgical incisions and hemovac replacement Pain: COIL TESTER dilaudid on and verified. Pt has discomfort in lower back. And bladder Neuro/CMS: Intact denies numbness and tingling. Prior to surgery pt had intermittently tingling in BL feet. Dressing(s): CDI Aquacel posterior from neck down to Buttocks. hemovac in place CDI. Diet: C.liq. Nausea Zofran given LDA: PIV left hand running LR and Dilaudid COIL TESTER. R hand piv SL. Hemovac in place and patent. Aquacel. Florez catheter. Equipment: IV pole, PCDs, COIL TESTER pump. CAPNO Plan: TBT Additional Info: Pt [...] Myles De Oliveira MD N/A None available Medicare Insurance Specialist(s): Huong Stock PA-C Anesthesia: General Estimated blood [...] to PACU Plan: Pain: Scheduled Tylenol, Dilaudid COIL TESTER, oxycodone PRN, Valium PRN Activity: Weight bearing [...] in 5-7 days. Huong Stock PA-C Pager: [phone] If no answer or after 4pm, please page the care transitions manager ortho resident. Op Note - Myles De [...] surgery SURGEON: Myles De Oliveira Jr., MD ENTERTAINMENT LAWYER: Huong Stock PA-C. No qualified resident was [...] then turned in position prone on a [employer] 4-inspector final assembly conveyor line frame. She was prepared and draped in [...] the O- arm and transferred to the [employer] image-guided workstation. This was now used to place pedicle screws in a navigated fashion. All the screws were from the [email or web address]. These were titanium screws with [...] MD MT: CC Name: JOCELIN PINEDO Account: [id number] : 1980 Procedure Date: 10/23/2017 Document: [id number] cc: Copy for Patient Keri Mitchell Beaulieu [...] spine. Positive global coronal imbalance. Sagittal Vertical [place] (A vertical line drawn from the center [...] spine. Positive global coronal imbalance. Sagittal Vertical [place] (A vertical line drawn from the center [...] Component Value Ref Test Analysis Performed At [facility] Range Method Time Signature Color Urine Light Yellow 10/26/2017 [facility] 3:08 PM CDT [facility] Appearance Urine Clear 10/26/2017 [facility] 3:08 PM T [facility] Glucose Urine Negative NEG^Nega 10/26/2017 [facility] tive 3:08 PM CDT [facility] mg/dL [facility] Bilirubin Urine Negative NEG^Nega 10/26/2017 [facility] tive 3:08 PM CDT [facility] Ketones Urine 10 (A) NEG^Nega 10/26/2017 [facility] tive 3:08 PM T [facility] mg/dL [facility] Specific [place] 1.005 1.003 - 10/26/2017 [facility] Urine 1.035 3:08 PM T [facility] Blood Urine Moderate (A) NEG^Nega 10/26/2017 [facility] tive 3:08 PM T [facility] pH Urine 6.5 5.0 - 10/26/2017 [facility] 7.0 pH 3:08 PM [facility] Protein Albumin Negative NEG^Nega 10/26/2017 [facility] Urine tive 3:08 PM T [facility] mg/dL [facility] Urobilinogen Normal 0.0 - 10/26/2017 [facility] mg/dL 2.0 3:08 PM [facility] mg/dL [facility] Nitrite Urine Negative NEG^Nega 10/26/2017 [facility] tive 3:08 PM T [facility] Leukocyte Negative NEG^Nega 10/26/2017 [facility] Esterase Urine tive 3:08 PM T [facility] Source Unspecified 10/26/2017 [facility] Urine 2:54 PM [facility] WBC Urine 1 0 - 5 10/26/2017 [facility] /HPF 3:08 PM T [facility] RBC Urine 1 0 - 2 10/26/2017 [facility] /HPF 3:08 PM T [facility] Squamous <1 0 - 1 10/26/2017 [facility] Epithelial /HPF /HPF 3:08 PM T [facility] Specimen (Source) Anatomical Collection Method Collection Time Re ceived Time Location / / Volume Laterality Unspecified Urine URINE SPECIMEN 10/26/2017 2:40 10/26 2:54 OBTAINED BY CLEAN PM CDT PM CDT CATCH PROCEDURE / Unknown Sunni Hernandez MD LAB - URINE ORDERABLES Performing Organization Address City/[facility]/ZIP Code Phon e Number [address] [address] [facility] (ABNORMAL) CBC with platelets (10/26/2017 8:00 AM CDT) [facility] gist Method Time Signature WBC 6.1 4.0 - 11.0 10/26/2017 [facility] 10e9/L 8:24 AM CDT [facility] RBC Count 3.88 3.8 - 5.2 10/26/2017 [facility] 10e12/L 8:24 AM CDT [facility] Hemoglobin 9.9 (L) 11.7 - 10/26/2017 [facility] 15.7 g/dL 8:24 AM CDT [facility] Hematocrit 30.5 (L) 35.0 - 10/26/2017 [facility] 47.0 % 8:24 AM CDT [facility] MCV 79 78 - 100 10/26/2017 [facility] fl 8:24 AM CDT [facility] MCH 25.5 (L) 26.5 - 10/26/2017 [facility] 33.0 pg 8:24 AM CDT [facility] MCHC 32.5 31.5 - 10/26/2017 [facility] 36.5 g/dL 8:24 AM CDT [facility] RDW 13.3 10.0 - 10/26/2017 [facility] 15.0 % 8:24 AM CDT [facility] Platelet Count 244 150 - 450 10/26/2017 [facility] 10e9/L 8:24 AM CDT [facility] Specimen Anatomical Collection Method Collection Time Receive d Time (Source) Location / / Volume Laterality Blood specimen 10/26/2017 8:00 AM 018 8:01 (specimen) CDT AM CDT Huong Stock PA-C LAB - BLOOD ORDERABLES Performing Organization Address City/[facility]/ZIP Code Phon e Number [address] [place] [address] [facility] (ABNORMAL) Glucose by meter (10/25/2017 8:34 AM CDT) P athologist Signature Glucose 114 (H) 70 - 99 10/25/2017 POINT OF CARE mg/dL 8:46 AM CDT TEST, GLUCOSE Specimen Anatomical Collection Method Collection Time Receive d Time (Source) Location / / Volume Laterality 10/25/2017 8:34 AM 8 8:46 CDT AM CDT Myles De Oliveira MD LAB - [facility] POCT Performing Organization Address City/State/ZIP Code Phon e Number [facility] POINT OF CARE TEST, GLUCOSE POINT OF CARE TEST, GLUCOSE (ABNORMAL) CBC with platelets (10/25/2017 6:26 AM CDT) Patholo gist Method Time Signature WBC 9.9 4.0 - 11.0 10/25/2017 [facility] 10e9/L 6:34 AM CDT [facility] RBC Count 4.03 3.8 - 5.2 10/25/2017 [facility] 10e12/L 6:34 AM CDT [facility] Hemoglobin 10.2 (L) 11.7 - 10/25/2017 [facility] 15.7 g/dL 6:34 AM CDT [facility] Hematocrit 32.0 (L) 35.0 - 10/25/2017 [facility] 47.0 % 6:34 AM CDT [facility] MCV 79 78 - 100 10/25/2017 [facility] fl 6:34 AM CDT [facility] MCH 25.3 (L) 26.5 - 10/25/2017 [facility] 33.0 pg 6:34 AM CDT [facility] MCHC 31.9 31.5 - 10/25/2017 [facility] 36.5 g/dL 6:34 AM CDT [facility] RDW 13.5 10.0 - 10/25/2017 [facility] 15.0 % 6:34 AM CDT [facility] Platelet Count 248 150 - 450 10/25/2017 [facility] 10e9/L 6:34 AM CDT [facility] Specimen Anatomical Collection Method Collection Time Receive d Time (Source) Location / / Volume Laterality Blood specimen 10/25/2017 6:26 AM 018 6:28 (specimen) CDT AM CDT Huong Stock PA-C LAB - BLOOD ORDERABLES Performing Organization Address City/[facility]/ZIP Code Phon e Number [address] [address] [facility] (ABNORMAL) CBC with platelets (10/24/2017 7:05 AM CDT) [facility] gist Method Time Signature WBC 8.8 4.0 - 11.0 10/24/2017 [facility] 10e9/L 7:17 AM CDT [facility] RBC Count 4.04 3.8 - 5.2 10/24/2017 [facility] 10e12/L 7:17 AM CDT [facility] Hemoglobin 10.2 (L) 11.7 - 10/24/2017 [facility] 15.7 g/dL 7:17 AM CDT [facility] Hematocrit 32.2 (L) 35.0 - 10/24/2017 [facility] 47.0 % 7:17 AM CDT [facility] MCV 80 78 - 100 10/24/2017 [facility] fl 7:17 AM CDT [facility] MCH 25.2 (L) 26.5 - 10/24/2017 [facility] 33.0 pg 7:17 AM CDT [facility] MCHC 31.7 31.5 - 10/24/2017 [facility] 36.5 g/dL 7:17 AM CDT [facility] RDW 13.3 10.0 - 10/24/2017 [facility] 15.0 % 7:17 AM CDT [facility] Platelet Count 235 150 - 450 10/24/2017 [facility] 10e9/L 7:17 AM CDT [facility] Specimen Anatomical Collection Method Collection Time Receive d Time (Source) Location / / Volume Laterality Blood specimen 10/24/2017 7:05 AM 018 7:06 (specimen) CDT AM CDT Huong Stock PA-C LAB - BLOOD ORDERABLES Performing Organization Address City/State/ZIP Code Phon e Number [address] [address] [facility] (ABNORMAL) Basic metabolic panel (10/24/2017 7:05 AM CDT) Analysis Performed At Patho logist Time Signature Sodium 144 133 - 144 10/24/2017 [facility] mmol/L 7:33 AM T [facility] Potassium 3.6 3.4 - 5.3 10/24/2017 [facility] mmol/L 7:33 AM CDT [facility] Chloride 110 (H) 94 - 109 10/24/2017 [facility] mmol/L 7:33 AM T [facility] Carbon Dioxide 27 20 - 32 10/24/2017 [facility] mmol/L 7:33 AM T [facility] Anion Gap 7 3 - 14 10/24/2017 [facility] mmol/L 7:33 AM T [facility] Glucose 99 70 - 99 10/24/2017 [facility] mg/dL 7:33 AM T [facility] Urea Nitrogen 6 (L) 7 - 30 10/24/2017 [facility] mg/dL 7:33 AM T [facility] Creatinine 0.74 0.52 - 10/24/2017 [facility] 1.04 mg/dL 7:33 AM T [facility] GFR Estimate 89 >60 10/24/2017 [facility] mL/min/1.7 7:33 AM T [address] Comment: Non GFR Calc GFR Estimate If >90 >60 mL/min/1.7m2 10/24/2017 7:33 A M [facility] Black [facility] Comment: GFR Calc Calcium 7.6 (L) 8.5 - 10.1 mg/dL 10/24/2017 7:[address] [facility] Specimen Anatomical Collection Method Collection Time Receive d Time (Source) Location / / Volume Laterality Blood specimen 10/24/2017 7:05 AM 018 7:06 (specimen) CDT AM CDT Huong Stock PA-C LAB - BLOOD ORDERABLES Performing Organization Address City/State/ZIP Code Phon e Number [facility] [address] [place] [address] [facility] (ABNORMAL) Glucose by meter (10/24/2017 2:17 AM CDT) P athologist Signature Glucose 110 (H) 70 - 99 10/24/2017 POINT OF CARE mg/dL 2:31 AM CDT TEST, GLUCOSE Specimen Anatomical Collection Method Collection Time Receive d Time (Source) Location / / Volume Laterality 10/24/2017 2:17 AM 8 2:31 CDT AM CDT Myles [facility]ILLI[facility] POCT Performing Organization Address [facility]/ZIP Code Phon e Number [facility] POINT OF [...] be read by a radiologist or a [facility] non-radiologis t provider. Myles De Oliveira MD IMG DIAGNOSTIC IMAGING ORDER TAYLOR Performing Organization Address [facility]/ZIP Code Phon e Number [facility] Glucose by meter (10/23/2017 5:57 AM CDT) P athologist Signature Glucose 94 70 - 99 10/23/2017 POINT OF CARE mg/dL 6:09 AM CDT TEST, GLUCOSE Comment: Dr/RN Notified Specimen Anatomical Collection Method Collection Time Receive d Time (Source) Location / / Volume Laterality 10/23/2017 5:57 AM 8 6:09 CDT AM CDT Myles [facility]ILLIARD POCT Performing Organization Address City/[facility]/ZIP Code Phon e Number [facility] POINT OF CARE TEST, GLUCOSE POINT OF CARE TEST, GLUCOSE HCG qualitative urine (10/23/2017 5:50 AM CDT) Analysis Performed At Patho logist Time Signature HCG Qual Urine Negative NEG^Negati 10/23/2017 [facility] 6:22 AM CDT [facility] Comment: This test is for screening purposes. ??R esults should be interpreted along with the clinical picture. ??Confirmation te sting is available if warranted by ordering [id number], HCG Quantitative Pregna ncy. Specimen Anatomical Collection Method Collection Time Receive d Time (Source) Location / / Volume Laterality Urine specimen URINE SPECIMEN / 10/23/2017 5:50 AM 11/2017 6:06 (specimen) Unknown CDT AM CDT Sarah Parry MD LAB - URINE ORDERABLES Performing Organization Address City/State/ZIP Code Phon e Number [facility] [address] [place] [address] [facility] EMG - HIM SCAN (10/23/2017 12:00 AM [...] used when administering multiple Central Nervous System (DUMP TRUCK DRIVER OFF HIGHWAY) depressing meds within a short time frame., Post-procedure Given 10/24/2017 6:06 AM CDT 25 mg diphenhydrAMINE (BENADRYL) injection 25 mg 25 mg, Intravenous, EVERY 6 HOURS PRN, i tching, Only give if patient unable to take PO., Starting on Mon10/23/17 at 1417, Caution to be us ed when administering multiple Central Nervous System (DUMP TRUCK DRIVER OFF HIGHW[address]) de pressing meds within a short time [...] medication dose, if any., Pre-procedure HYDROmorphone (DILAUDID) COIL TESTER 1 mg/mL OPIOID Shift Total 10/14 10:35 PM CDT NAIVE Nurse Loading Dose: 0.2 mg, COIL TESTER Dose: 0.2 mg, Lockout Interval: 10 Minutes, Continuous Rate: 0 mg/hr, One Hour Dose Limit: 1.8 mg, Starting on Mon10/23/17 at 1200, Start with the provider specified dose. COIL TESTER dose range is 0.2 mg - 0.3 mg. May increase dose by 0.1 mg for pain control or improvement in physical function. Hold the dose for analgesic side effects. Notify the provider to assess for uncontrolled pain or analgesic side effects.Do NOT give any additional opioids while on COIL TESTER. When transitioning from COIL TESTER to oral opioid MAY give first oral dose 30 minutes PRIOR to discontinuation of COIL TESTER., Intravenous, Post-procedure Rate/Dose Verify 10/23/2017 2:45 PM CDT New Syringe/Cartridge 10/23/2017 12:41 PM CDT HYDROmorphone (DILAUDID) COIL TESTER 1 New Syringe/Cartridge 10/24/2017 9:54 AM CDT mg/mL OPIOID NAIVE Nurse Loading Dose: 0.2 mg, COIL TESTER Dose: 0.3 mg, Lockout Interval: 10 Minutes, Continuous Rate: 0 mg/hr, One Hour Dose Limit: 1.8 mg, Starting on Mon10/24/17 at 0130, Start with the provider specified dose. COIL TESTER dose range is 0.2 mg - 0.3 mg. May increase dose by 0.1 mg for pain control or improvement in physical function. Hold the dose for analgesic side effects. Notify the provider to assess for uncontrolled pain or analgesic side effects.Do NOT give any additional opioids while on COIL TESTER. When transitioning from COIL TESTER to oral opioid MAY give first oral dose 30 minutes PRIOR to discontinuation of COIL TESTER., Intravenous, Post-procedure Shift Total 10/24/2017 6:01 AM [...] or analgesic side effects. Hold while on COIL TESTER or with regular IV opioid dosing. Maximum [...] or analgesic side effects. Hold while on COIL TESTER or with regular IV opioid dosing. Maximum [...] First dos e (after last modification) on [facility] 10/26/17 at 2000, Hold for loose stools., [...] 10/27/2017 acetaminophen (TYLENOL) tablet 975 mg () 8305 ( Given - Provider: Rhonda Sheppard RN)8069 (Given - Provider: Patricia Gonsalez RN)2685 (Given - Provider: Emma Morales RN) 0707 [...] 17 g 092 9 (Given - Provider: Patricai Gonsalez RN)2154 (Not Given - Provider: Emma [...] Reason: Med discontinued by Provider - Comment: frame stripper d/c'd)1148 (Given - Provider: Patricia Gonsalez, RN)2157 [...] used when administering multiple Central Nervous System (DUMP TRUCK DRIVER OFF HIGHWAY) depressing meds within a short time frame., Post-procedure diphenhydrAMINE (BENADRYL) injection 25 mg(Linked Grou p 2) 0327 (See Alternative - Provider: Rhonda Sheppard RN) 25 mg, Intravenous, EVERY 6 HOURS PRN, i tching, Only give if patient unable to take PO., Starting 10/23/17 at 1417, Caution to be used when administering multiple Central Nervous System (DUMP TRUCK DRIVER OFF HIGHWAY) depress ing meds within a short time [...] metoclopramide (REGLAN) injection 10 mg(Linked Group 3) 5051 (Given - Provider: Emma Morales RN) 10 [...] metoclopramide (REGLAN) tablet 10 mg(Linked Group 3) 6254 (See Alternative - Provider: Emma Morales RN) [...] or analgesic side effects. Hold while on COIL TESTER or with regular IV opioid dosing. Maximum [...] used when administering multiple Central Nervous System (DUMP TRUCK DRIVER OFF HIGHWAY) depressing meds within a short time frame.
Post-procedure Or diphenhydrAMINE (BENADRYL) injection 25 mgJump to med 25 mg, Intravenous, EVERY 6 HOURS PRN, i tching, Only give if patient unable to take PO., Starting 10/23/17 at 1417
Caution to be used when administering multiple Central Nervous System (DUMP TRUCK DRIVER OFF HIGHWAY) depressing meds within a short time fra [...]
Post-procedure documented in this encounter Care Teams Legal Officer Relationship Specialty Start Date End Date Keri Elias PCP - General Family Practice 03/12/15 9 MD Ira Glez, Mlyes Hartman MD Orthopedics 07/09/14 [facility] [place] [address] Astrid Rios PA-C Physician Medicare Insurance Specialist Physician Medicare Insurance Specialist - 07/09/14 Surgical documented as of this encounter
--- OUTSIDE RECORDS SUMMARY | 2021-12-22 08:40 | XMS_ITS | Encounter Summary ---
:1980 Author Organization [place] Address [address] [facility] [place] [address] Care Team Providers Name Role Phone Bebeto Roth MD Unavailable Astrid Rios PA-C Unavailable Keri Elias MD Primary Care Provider Unavailable Reason for Visit Reason Onset Date Comments Forms 10/05/2017 FMLA paperwork f/u Encounter Details Date Type Department Care Team Description 10/05/2017 Telephone [facility] Orthopaedic Bebeto Roth Forms ( FMLA paperwork Clinic MD Devan f/u) [address] [place] [address] Social History Tobacco Use Types Packs/Day Years Used Date Smoking Tobacco: Never Smokeless Tobacco: Never Alcohol Use Standard Drinks/Week Comments No 0 (1 standard drink = 0.6 oz pure alcoho l) Sex Assigned at Date Recorded Not on file documented as of this encounter Miscellaneous Notes Telephone Encounter - Miguelina Ward LPN - 10/05/2017 9:47 AM CDT Advised patient to call Dr. Roth's spot man, Gavi, regarding FMLA paperwork. Number provided. Telephone [...] filedocumented in this encounter Care Teams Manager Call Center Relationship Specialty Start Date End Date Keri Elias PCP - General Family Practice 03/12/15 9 MD Ira Glez David Wayne, MD Orthopedics 07/09/[address] [place] [address] Astrid Rios PA-C Physician Smutter Physician Smutter - 07/09/14 Surgical documented as of this encounter
--- OUTSIDE RECORDS SUMMARY | 2021-12-22 08:40 | XMS_ITS | Encounter Summary ---
:1980 Author Organization [place] Address [address] [place] [address]. [place] [address] Care Team Providers Name Role Phone Bebeto Roth MD Unavailable Astrid Rios PA-C Unavailable Keri Elias MD Primary Care Provider Unavailable Reason for Visit Auth/Cert Specialty Diagnoses / Procedures Referred By Contact Refer red To Contact Surgery Diagnoses Scoliosis Kyphosis Ur Periop Procedures [facility] [address] [place] [phone] Phone: Fax: Referral ID Status Reason Start Date Expiration Date Visits Requ ested Visits Authorized [id number] 1 1 Encounter Details Date Type Department Care Team Description 10/23/2017 Anesthesia Event [facility] Sarah Parry MD [facility] [address] [facility] [address] [place], [place] [address] PeriOp Services Bryan Tejeda, MASTER BLACK BELT BOOK MENDER [address] [place] [id number] [place] [phone] Anesthesia Record Procedure Summary Procedure Name [...] - 10/23/2017 1:15 PM CDT Patient: Jocelin aGrg Procedure(s): Extension Of Fusion Thoracic 4-Thoracic 10, [...] Antibody Screen: Neg Test Valid Only At: [facility]. Specimen Expires: 10/02/2017 ?? 09/29/2017 12:11 Color Urine: Yellow Appearance Urine: Clear Glucose Urine: Negative Bilirubin Urine: Negative Ketones Urine: Negative Specific [place] Urine: 1.013 pH Urine: 6.0 Protein Albumin Urine: Negative Urobilinogen mg/dL: 0.0 Nitrite Urine: Negative Blood Urine: Large (A) Leukocyte Esterase Urine: Negative Source: Midstream Urine WBC Urine: 1 RBC Urine: 3 (H) Squamous Epithelial /HPF Urine: 3 (H) Transitional Epi: <1 (A) Mucous Urine: Present (A) ? PAC Discussion and Assessment ?? ASA Classification: 2 Case is suitable for: [place] Anesthetic techniques and relevant risks discussed: GA Invasive monitoring and risk discussed: Yes Types: Possibility and Risk of blood transfusion discussed: Yes NPO instructions given: Additional anesthetic preparation and risks discussed: Needs early admission to pre-op area: Other: ?? PAC Resident/SUPERVISOR OVENS Anesthesia Assessment: Jocelin Garg is a 37 [...] Antibody Screen: Neg Test Valid Only At: [facility] Specimen Expires: 10/02/2017 ?? 09/29/2017 12:11 Color Urine: Yellow Appearance Urine: Clear Glucose Urine: Negative Bilirubin Urine: Negative Ketones Urine: Negative Specific [place] Urine: 1.013 pH Urine: 6.0 Protein Albumin Urine: Negative Urobilinogen mg/dL: 0.0 Nitrite Urine: Negative Blood Urine: Large (A) Leukocyte Esterase Urine: Negative Source: Midstream Urine WBC Urine: 1 RBC Urine: 3 (H) Squamous Epithelial /HPF Urine: 3 (H) Transitional Epi: <1 (A) Mucous Urine: Present (A) ? PAC Discussion and Assessment ?? ASA Classification: 2 Case is suitable for: [place] Anesthetic techniques and relevant risks discussed: GA Invasive monitoring and risk discussed: Yes Types: Possibility and Risk of blood transfusion discussed: Yes NPO instructions given: Additional anesthetic preparation and risks discussed: Needs early admission to pre-op area: Other: ?? PAC Resident/SUPERVISOR OVENS Anesthesia Assessment: Jocelin Garg is a 37 [...] Patient and Spouse.. Plan - [facility] with [facility] (pt is anterior) for Optical Tracking System [...] Miscellaneous Notes Anesthesia Care Transfer Note - Brayn Tejeda APRN CRNA - 10/23/2017 12:12 PM [...] Intra-procedure documented in this encounter Care Teams Cotton Presser Relationship Specialty Start Date End Date Keri Elias PCP - General Family Practice 03/12/15 9 MD Ira Glez David Wayne, MD Orthopedics 07/09/14 [facility] [facility] [address] [place] [address] Astrid Rios PA-C Physician Superintendent Compressor Stations Physician Superintendent Compressor Stations - 07/09/14 Surgical documented as of this encounter
--- OUTSIDE RECORDS SUMMARY | 2021-12-22 08:41 | XMS_ITS | Encounter Summary ---
:1980 Author Organization [place] Address [facility] [place] [place] [address] Care Team Providers Name Role Phone Bebeto Roth MD Unavailable Astrid Rios PA-C Unavailable Keri Elias MD Primary Care Provider Unavailable Reason for Visit Reason Onset Date Comments Schedule Surgery 07/20/2017 Dr. Roth Encounter Details Date Type Department Care Team Description 07/20/2017 Telephone [facility] Orthopaedic Bebeto Roth Surgery (MD Ira Gardner) [address] [place] [address] Social History Tobacco Use Types Packs/Day Years [...] Patient has been scheduled for 10/24/17 at [place]. She will see PAC for her pre-op H&P on 09/29/17. documented in this encounter Plan of Treatment Not on filedocumented as of this encounter Visit Diagnoses Not on filedocumented in this encounter Care Teams Dba Manager Relationship Specialty Start Date End Date Keri Elias PCP - General Family Practice 03/12/15 9 MD Ira Glez David Wayne, MD Orthopedics 07/09/[address] [place] [address] Astrid Rios PA-C Physician Hose Seamer Physician Hose Seamer - 07/09/14 Surgical documented as of this encounter
--- OUTSIDE RECORDS SUMMARY | 2021-12-22 08:41 | XMS_ITS | Encounter Summary ---
:1980 Author Organization [place] Address [address] [facility] [place] [address] Care Team Providers Name Role Phone Bebeto [...] initial prescr iption of contraceptive pills [address], [address] [place], [place] [address] Social History Tobacco Use Types Packs/Day Years Used Date Smoking Tobacco: Never Smokeless Tobacco: Never Alcohol Use Standard Drinks/Week Comments No 0 (1 standard drink = 0.6 oz pure alcoho l) Sex Assigned at Date Recorded Not on file documented as of this encounter Last Filed Vital Signs Vital Sign Reading Time Taken Comments Blood Pressure 112/83 04/12/2017 11:05 AM POWERPLANT OPERATOR Pulse 94 04/12/2017 11:05 AM POWERPLANT OPERATOR Temperature - - Respiratory Rate 16 04/12/2017 11:05 AM POWERPLANT OPERATOR Oxygen Saturation 98% 04/12/2017 11:05 AM POWERPLANT OPERATOR Inhaled Oxygen Concentration - - Weight 69.8 kg (153 lb 12.8 oz) 04/12/2017 11:05 AM POWERPLANT OPERATOR Height - - Body Mass Index 27.03 03/30/2017 12:31 PM POWERPLANT OPERATOR documented in this encounter Progress Notes [...] spent in counseling about symptoms and plan. RPLANT OPERATOR documented in this encounter Plan of Treatment Not on filedocumented as of this encounter Procedures Procedure Name Priority Date/Time Associated Diagnosis Comme nts HEMOGLOBIN (HGB) Routine 04/12/2017 11:46 Iron deficiency Resu lts for this ([facility]) AM POWERPLANT OPERATOR anemia, unspecified procedur e are in iron deficiency the results anemia type section. documented in this encounter Results Hemoglobin (HGB) ([facility]) (04/12/2017 11:46 AM POWERPLANT OPERATOR) P athologist Signature Hemoglobin 11.8 11.7 - 15.7 [facility] g/dL MEDICINE LAB[facility]Q Specimen Anatomical Collection Method Collection Time Receive d Time (Source) Location / / Volume Laterality Blood specimen CAPILLARY BLOOD / 04/12/2017 11:46 03/17 (specimen) Unknown AM POWERPLANT OPERATOR 11:48 AM POWERPLANT OPERATOR Keri Elias MD LAB - LAB[facility] Performing Organization Address City/State/ZIP Code Phon e Number [facility] [address] [place], [place] [address] [facility] documented in this encounter Visit Diagnoses Diagnosis Iron deficiency anemia, unspecified iron deficiency anemia type - Primary Encounter for initial prescription of co ntraceptive pills General counseling for prescription of o ral contraceptives documented in this encounter Care Teams Industrial Engineering Relationship Specialty Start Date End Date Keri Elias PCP - General Family Practice 03/12/15 9 MD Ira Glez David Wayne, MD Orthopedics 07/09/14 [facility] [place] [address] Astrid Rios PA-C Physician Used Car Lot Attendant Physician Used Car Lot Attendant - 07/09/14 Surgical documented as of this encounter
--- OUTSIDE RECORDS SUMMARY | 2021-12-22 08:41 | XMS_ITS | Encounter Summary ---
:1980 Author Organization [place] Address [facility] [place] [address] Care Team Providers Name Role Phone Bebeto Roth MD Unavailable Astrid Rios PA-C Unavailable Keri Elias MD Primary Care Provider Unavailable Reason for Visit Diagnostic Imaging XR - Closed Specialty Diagnoses / Procedures Referred By Contact Refer red To Contact Diagnoses S/P spinal fusion Bebeto Roth MD Procedures XR Leg Length Evaluation [address] [place], [place] [address] Referral ID Status Reason Start Date Expiration Date Visits Requ ested Visits Authorized [id number] Closed 06/29/2017 06/29/2018 1 1 Encounter Details Date Type Department Care Team Description 06/29/2017 Radiant Appointment [facility] Imaging Bebeto Roth S/P spinal fusion Center Una Hartman MD 9 [facility] [address] [place] [address] [phone] Social History Tobacco Use Types Packs/Day Years [...] No substantial global coronal imbalance. Sagittal Vertical [place] (A vertical line drawn from the center [...] No substantial global coronal imbalance. Sagittal Vertical [place] (A vertical line drawn from the center [...] status documented in this encounter Care Teams Steamship Agent Relationship Specialty Start Date End Date JadaAlexane PCP - General Family Practice 03/12/15 9 MD Ira Glez David Wayne, MD Orthopedics 07/09/[address] [address] Astrid Rios PA-C Physician Scrap Hoist Operator Physician Scrap Hoist Operator - 07/09/14 Surgical documented as of this encounter
--- OUTSIDE RECORDS SUMMARY | 2021-12-22 08:41 | XMS_ITS | Encounter Summary ---
:1980 Author Organization [place] Address [address] [facility] [place] [address] Care Team Providers Name Role Phone Bebeto Roth MD Unavailable Astrid Rios PA-C Unavailable Keri Elias MD Primary Care Provider Unavailable Reason for Visit Reason Onset Date Comments Schedule Surgery 07/27/2017 Dr. Ira arizmendi Encounter Details Date Type Department Care Team Description 07/27/2017 Telephone [facility] Orthopaedic Bebeto Roth e Surgery (MD Ira Gardner) [address] [place] [id number] Social History Tobacco Use Types Packs/Day Years [...] on filedocumented in this encounter Care Teams Equal Employment Opportunity Officer Relationship Specialty Start Date End Date Keri Elias PCP - General Family Practice 03/12/15 9 MD Ira Glez David Wayne, MD Orthopedics 07/09/[address] [place] [address] Astrid Rios PA-C Physician Frame Aligner Physician Frame Aligner - 07/09/14 Surgical documented as of this encounter
--- OUTSIDE RECORDS SUMMARY | 2021-12-22 08:41 | XMS_ITS | Encounter Summary ---
:1980 Author Organization [place] Address [facility] [address] Care Team Providers Name Role Phone Bebeto Roth MD Unavailable Astrid Rios PA-C Unavailable Keri Elias MD Primary Care Provider Unavailable Reason for Visit Diagnostic Imaging XR - Closed Specialty Diagnoses / Procedures Referred By Contact Refer red To Contact Diagnoses S/P spinal fusion Bebeto Roth MD Procedures XR Spine Complete 2 Views [address] [place], [place] [address] Referral ID Status Reason Start Date Expiration Date Visits Requ ested Visits Authorized [id number] Closed 03/27/2017 03/27/2018 1 1 Encounter Details Date Type Department Care Team Description 03/30/2017 Radiant Appointment [facility] Imaging Bebeto Roth S/P spinal fusion Center Una Hartman MD 9 [facility] [address] [place] [address] [phone] Social History Tobacco Use Types Packs/Day Years [...] n Results for this SCOLIOSIS 2 VIEWS EARLY CHILDHOOD DIRECTOR procedure are in the results section. documented in this encounter Results XR Spine Complete 2 Views (03/30/2017 12:40 PM EARLY CHILDHOOD DIRECTOR) Anatomical Region Laterality Modality Spine Computed Radiography Specimen (Source) Anatomical Location Collection Method / Collectio n Time Received Time / Laterality Volume Impressions 03/30/2017 1:17 PM EARLY CHILDHOOD DIRECTOR Impression: 1. Mild right convexed curvature of the main thoracic spine. 2. No ??global sagittal imbalance. 3. Weight bearing axis as detailed above . 4. Stable posterior instrumented fusion from T10 to L3 ALISHA POPE MD Narrative 03/30/2017 1:17 PM EARLY CHILDHOOD DIRECTOR EXAMINATION: XR SPINE COMPLETE 2 VW, XR [...] No substantial global coronal imbalance. Sagittal Vertical [place] (A vertical line drawn from the center [...] No substantial global coronal imbalance. Sagittal Vertical [place] (A vertical line drawn from the center [...] status documented in this encounter Care Teams Crop Roller Relationship Specialty Start Date End Date Keri Elias PCP - General Family Practice 03/12/15 9 MD Ira Glez David Wayne, MD Orthopedics 07/09/[address] [place] [address] Astrid Rios PA-C Physician Clock Assembler Physician Clock Assembler - 07/09/14 Surgical documented as of this encounter
--- OUTSIDE RECORDS SUMMARY | 2021-12-22 08:41 | XMS_ITS | Encounter Summary ---
:1980 Author Organization [place] Address [facility]0 [facility] [place] [address] Care Team Providers Name Role Phone Bebeto Roth MD Unavailable Astrid Rios PA-C Unavailable Keri Elias MD Primary Care Provider Unavailable Reason for Visit Diagnostic Imaging XR - Closed Specialty Diagnoses / Procedures Referred By Contact Refer red To Contact Diagnoses S/P spinal fusion Bebeto Roth MD Procedures XR Spine Complete 2 Views [address] [place], [place] [address] Referral ID Status Reason Start Date Expiration Date Visits Requ ested Visits Authorized [id number] Closed 06/28/2017 06/28/2018 1 1 Encounter Details Date Type Department Care Team Description 06/29/2017 Radiant Appointment [facility] Imaging Bebeto Roth S/P spinal fusion Center Una Hartman MD 9 [facility] [address] [place] [address] [phone] Social History Tobacco Use Types Packs/Day Years [...] No substantial global coronal imbalance. Sagittal Vertical [place] (A vertical line drawn from the [...] No substantial global coronal imbalance. Sagittal Vertical [place] (A vertical line drawn from the [...] status documented in this encounter Care Teams Job Site Superintendent Relationship Specialty Start Date End Date MeghaAlexa Tysonne PCP - General Family Practice 03/12/15 9 MD Ira Glez David Wayne, MD Orthopedics 07/09/[address] [place] [address] Astrid Rios PA-C Physician Electrician'S Helper Physician Electrician'S Helper - 07/09/14 Surgical documented as of this encounter
--- OUTSIDE RECORDS SUMMARY | 2021-12-22 08:41 | XMS_ITS | Encounter Summary ---
:1980 Author Organization [place] Address [address] [place] [address] Care Team Providers Name Role Phone Bebeto Roth MD Unavailable Astrid Rios PA-C Unavailable Keri Elias MD Primary Care Provider Unavailable Reason for Visit Diagnostic Imaging XR - Closed Specialty Diagnoses / Procedures Referred By Contact Refer red To Contact Diagnoses Pain Bebeto Roth MD Procedures XR Leg Length Evaluation [address] [facility] [address] [place], [place] [address] Referral ID Status Reason Start Date Expiration Date Visits Requ ested Visits Authorized [id number] Closed 03/30/2017 03/30/2018 1 1 Encounter Details Date Type Department Care Team Description 03/30/2017 Radiant Appointment [facility] Chan Roth Pain Farhanaay MD Devan 9 [facility] [address] 1st [place] [address] Social History Tobacco Use Types Packs/Day [...] 12:42 PM Pain Results for this EVALUATION ASSOCIATE TEAM PHYSICIAN procedure are i n the results section. documented in this encounter Results XR Leg Length Evaluation (03/30/2017 12:42 PM ASSOCIATE TEAM PHYSICIAN) Anatomical Region Laterality Modality Neck Computed Radiography Specimen (Source) Anatomical Location Collection Method / Collectio n Time Received Time / Laterality Volume Impressions 03/30/2017 1:17 PM ASSOCIATE TEAM PHYSICIAN Impression: 1. Mild right convexed curvature of the main thoracic spine. 2. No ??global sagittal imbalance. 3. Weight bearing axis as detailed above . 4. Stable posterior instrumented fusion from T10 to L3 ALISHA POPE MD Narrative 03/30/2017 1:17 PM ASSOCIATE TEAM PHYSICIAN EXAMINATION: XR SPINE COMPLETE 2 VW, XR [...] No substantial global coronal imbalance. Sagittal Vertical [place] (A vertical line drawn from the center [...] No substantial global coronal imbalance. Sagittal Vertical [place] (A vertical line drawn from the center [...] pain documented in this encounter Care Teams Tubing Drier Relationship Specialty Start Date End Date Keri Elias PCP - General Family Practice 03/12/15 9 MD Ira Glez David Wayne, MD Orthopedics 07/09/14 [address] [facility] [address] [place] [address] Astrid Rios PA-C Physician Cable Layer Physician Cable Layer - 07/09/14 Surgical documented as of this encounter
--- OUTSIDE RECORDS SUMMARY | 2021-12-22 08:41 | XMS_ITS | Encounter Summary ---
:1980 Author Organization [place] Address [address] [facility] [place] [address] Care Team Providers Name Role Phone Bebeto Roth MD Unavailable Astrid Rios PA-C Unavailable Keri Elias MD Primary Care Provider Unavailable Reason for Referral Diagnostic Imaging XR - Closed Specialty Diagnoses / Procedures Referred By Contact Refer red To Contact Diagnoses S/P spinal fusion Bebeto Roth MD Procedures XR Spine Complete 2 Views [address] [address] Referral ID Status Reason Start Date Expiration Date Visits Requ ested Visits Authorized [id number] Closed 06/28/2017 06/28/2018 1 1 Diagnostic Imaging XR - Closed Specialty Diagnoses / Procedures Referred By Contact Refer red To Contact Diagnoses S/P spinal fusion Bebeto Roth MD Procedures XR Spine Complete 2 Views [address] [place], [place] [address] Referral ID Status Reason Start Date Expiration Date Visits Requ ested Visits Authorized [id number] Closed 06/28/2017 06/28/2018 1 1 Encounter Details Date Type Department Care Team Description 06/28/2017 Orders Only [facility] Orthopaedic Bebeto Roth S/P spi nal fusion Clinic MD Devan (Primary Dx) 9 [place] [address] [place] [address] [phone] Social History Tobacco Use Types Packs/Day Years [...] No substantial global coronal imbalance. Sagittal Vertical [place] (A vertical line drawn from the center [...] No substantial global coronal imbalance. Sagittal Vertical [place] (A vertical line drawn from the center [...] No substantial global coronal imbalance. Sagittal Vertical [place] (A vertical line drawn from the center [...] No substantial global coronal imbalance. Sagittal Vertical [place] (A vertical line drawn from the center [...] status documented in this encounter Care Teams Brick Paving Checker Relationship Specialty Start Date End Date Keri Elias PCP - General Family Practice 03/12/15 9 MD Ira Glez David Wayne, MD Orthopedics 07/09/[address] [place] [address] Astrid Rios PA-C Physician Commercial Loan Underwriter Physician Commercial Loan Underwriter - 07/09/14 Surgical documented as of this encounter
--- OUTSIDE RECORDS SUMMARY | 2021-12-22 08:41 | XMS_ITS | Encounter Summary ---
:1980 Author Organization [place] Address [address] [facility] [place] [address] Care Team Providers Name Role Phone Bebeto Roth MD Unavailable Astrid Rios PA-C Unavailable Keri Elias MD Primary Care Provider Unavailable Encounter Details Date Type Department Care Team Description 09/29/2017 Orders Only [facility] Preop general physical [address] [facility] [address] exam 1st Floor [place], [place] [phone] Social History Tobacco Use [...] 12:03 Preop general Resu lts for this [facility] physical exam procedure are in the results section. documented in this encounter Results (ABNORMAL) UA reflex to Microscopic and Culture (09/29/2017 12:11 PM [facility]) [facility] Method Time Signature Color Urine Yellow 09/29/2017 [facility] 12:41 PM [facility] Appearance Urine Clear 09/29/2017 [facility] F 12:41 PM [facility] Glucose Urine Negative NEG^Negat 09/29/2017 [facility] [place] mg/dL 12:41 PM [facility] Bilirubin Urine Negative NEG^Negat 09/29/2017 [facility] [place] 12:41 [facility] Ketones Urine Negative NEG^Negat 09/29/2017 [facility] [place] mg/dL 12:41 PM [facility] Specific [place] 1.013 1.003 - 09/29/2017 [facility] F Urine 1.035 12:41 PM [facility] Blood Urine Large (A) NEG^Negat 09/29/2017 [facility] [place] 12:41 PM [facility] pH Urine 6.0 5.0 - 7.0 09/29/2017 [facility] pH 12:41 [facility] Protein Albumin Negative NEG^Negat 09/29/2017 [facility] Urine franco mg/dL 12:41 PM [facility] Urobilinogen 0.0 0.0 - 2.0 09/29/2017 [facility] mg/dL mg/dL 12:41 PM [facility] Nitrite Urine Negative NEG^Negat 09/29/2017 [facility] [place] 12:41 PM [facility] Leukocyte Negative NEG^Negat 09/29/2017 [facility] Esterase Urine franco 12:41 [facility] Source Midstream 09/29/2017 [facility] Urine 12:16 PM [facility] RBC Urine 3 (H) 0 - 2 09/29/2017 [facility] /HPF 12:41 PM [facility] WBC Urine 1 0 - 5 09/29/2017 [facility] /HPF 12:41 PM [facility] Squamous 3 (H) 0 - 1 09/29/2017 [facility] Epithelial /HPF /HPF 12:41 PM [place] U[facility] Transitional Epi <1 (A) FEW^Few 09/29/2017 [facility] F /HPF 12:41 PM [facility] Mucous Urine Present (A) NEG^Negat 09/29/2017 [facility] [place] /LPF 12:41 PM [facility] Specimen (Source) Anatomical Collection Method Collection Time Re ceived Time Location / / Volume Laterality Examination of 09/29/2017 12:11 8 midstream urine PM CDT 12:16 PM CDT specimen (procedure) Cameron Manjarrez APRN PLASTER MODEL AND MOLD MAKER LAB - URINE ORDERABLES Performing Organization Address City/[facility]/ZIP Code Phon e Number [address] [address] [facility] Hemoglobin A1c (09/29/2017 12:03 PM CDT) P athologist Signature Hemoglobin A1C 5.3 0 - 5.6 % 09/29/2017 [facility] 12:48 PM T [facility] Comment: Normal <5.7% Prediabetes 5.7-6.4% ??Diab etes 6.5% or higher - adopted from ADA consensus guidelines. Specimen Anatomical Collection Method Collection Time Receive d Time (Source) Location / / Volume Laterality Blood specimen 09/29/2017 12:03 8 (specimen) PM CDT 12:04 PM CDT Cameron Manjarrez APRN PLASTER MODEL AND MOLD MAKER LAB - BLOOD ORDERABLES Performing Organization Address City/[facility]/ZIP Code Phon e Number [address] [address] [facility] INR (09/29/2017 12:03 PM CDT) P athologist Signature INR 1.02 0.86 - 1.14 09/29/2017 [facility] 12:28 PM CDT [facility] Specimen Anatomical Collection Method Collection Time Receive d Time (Source) Location / / Volume Laterality Blood specimen 09/29/2017 12:03 8 (specimen) PM CDT 12:04 PM CDT Cameron Manjarrez APRN PLASTER MODEL AND MOLD MAKER LAB - BLOOD ORDERABLES Performing Organization Address City/[facility]/ZIP Code Phon e Number [address] [address] [facility] (ABNORMAL) CBC with platelets (09/29/2017 12:03 PM CDT) [facility] gist Method Time Signature WBC 4.8 4.0 - 11.0 09/29/2017 [facility] 10e9/L 12:18 PM CDT [facility] RBC Count 4.87 3.8 - 5.2 09/29/2017 [facility] 10e12/L 12:18 PM CDT [facility] Hemoglobin 12.5 11.7 - 09/29/2017 [facility] 15.7 g/dL 12:18 PM CDT [facility] Hematocrit 39.4 35.0 - 09/29/2017 [facility] 47.0 % 12:18 PM CDT [facility] MCV 81 78 - 100 09/29/2017 [facility] fl 12:18 PM CDT [facility] MCH 25.7 (L) 26.5 - 09/29/2017 [facility] 33.0 pg 12:18 PM CDT [facility] MCHC 31.7 31.5 - 09/29/2017 [facility] 36.5 g/dL 12:18 PM CDT [facility] RDW 13.8 10.0 - 09/29/2017 [facility] 15.0 % 12:18 PM CDT [facility] Platelet Count 332 150 - 450 09/29/2017 [facility] 10e9/L 12:18 PM CDT [facility] Specimen Anatomical Collection Method Collection Time Receive d Time (Source) Location / / Volume Laterality Blood specimen 09/29/2017 12:03 8 (specimen) PM CDT 12:04 PM CDT Cameron Manjarrez APRN PLASTER MODEL AND MOLD MAKER LAB - BLOOD ORDERABLES Performing Organization Address City/[facility] Code Phon e Number [address] [address] [facility] Basic metabolic panel (09/29/2017 12:03 PM CDT) P athologist Signature Sodium 141 133 - 144 09/29/2017 [facility] mmol/L 12:40 PM CDT [facility] Potassium 3.6 3.4 - 5.3 09/29/2017 [facility] mmol/L 12:40 PM CDT [facility] Chloride 106 94 - 109 09/29/2017 [facility] mmol/L 12:40 PM CDT [facility] Carbon Dioxide 28 20 - 32 09/29/2017 [facility] mmol/L 12:40 PM CDT [facility] Anion Gap 7 3 - 14 09/29/2017 [facility] mmol/L 12:40 PM CDT [facility] Glucose 90 70 - 99 09/29/2017 [facility] mg/dL 12:40 PM CDT [facility] Urea Nitrogen 12 7 - 30 09/29/2017 [facility] mg/dL 12:40 PM CDT [facility] Creatinine 0.85 0.52 - 09/29/2017 [facility] 1.04 mg/dL 12:40 PM CDT [facility] GFR Estimate 76 >60 09/29/2017 [facility] mL/min/1.7 12:[address] Comment: Non GFR Calc GFR Estimate If >90 >60 mL/min/1.7m2 09/29/2017 12:40 PM [facility] Black CDT [facility] Comment: GFR Calc Calcium 8.8 8.5 - 10.1 mg/dL 09/29/2017 12:40 PM CDT [facility] Specimen Anatomical Collection Method Collection Time Receive d Time (Source) Location / / Volume Laterality Blood specimen 09/29/2017 12:03 8 (specimen) PM CDT 12:04 PM CDT Cameron Manjarrez APRN PLASTER MODEL AND MOLD MAKER LAB - BLOOD ORDERABLES Performing Organization Address City/State/ZIP Code Phon e Number [place] [phone] [facility] ABO/Rh type and screen (09/29/2017 12:03 PM CDT) Patholo gist Method Time Signature ABO O 09/29/2017 [facility] 1:31 PM CDT [facility] RH(D) Pos [facility] Antibody Neg 09/29/2017 [facility] Screen 1:31 PM CDT [facility] Test Valid [facility] 09/29/2017 [facility] 12:46 PM CDT [facility] Hospital Specimen 10/26/2017 10/23/2017 [facility] Expires 6:57 AM CDT [facility] Blood Bank Pre admission 09/29/2017 [facility] Comment form received 4:03 PM CDT [facility] 09/29/17 for [facility] 10/23/17. AA Specimen Anatomical Collection Method Collection Time Receive d Time (Source) Location / / Volume Laterality Blood specimen 09/29/2017 12:03 8 (specimen) PM CDT 12:04 PM CDT Cameron Manjarrez APRN PLASTER MODEL AND MOLD MAKER LAB - BLOOD BANK TEST ORDER Performing Organization Address City/State/ZIP Code Phon e Number [facility] [address] [place] [address] [facility] [address] [place] [address] [facility] documented in this encounter Visit Diagnoses Diagnosis Preop general physical exam Other specified pre-operative examinatio n documented in this encounter Care Teams Marketing Operations Manager Relationship Specialty Start Date End Date Keri Elias PCP - General Family Practice 03/12/15 9 MD Ira Glez David Wayne, MD Orthopedics 07/09/[address] [place] [address] Astrid Rios PA-C Physician Regional Driver Physician Regional Driver - 07/09/14 Surgical documented as of this encounter
--- OUTSIDE RECORDS SUMMARY | 2021-12-22 08:41 | XMS_ITS | Encounter Summary ---
:1980 Author Organization [place] Address [address] [facility] [place] [address] Care Team Providers Name Role Phone Bebeto Roth MD Unavailable Astrid Rios PA-C Unavailable Keri Elias MD Primary Care Provider Unavailable Reason for Referral Diagnostic Imaging XR - Closed Specialty Diagnoses / Procedures Referred By Contact Refer red To Contact Diagnoses S/P spinal fusion Bebeto Roth MD Procedures XR Spine Complete 2 Views [address] [place], [place] [address] Referral ID Status Reason Start Date Expiration Date Visits Requ ested Visits Authorized [id number] Closed 03/27/2017 03/27/2018 1 1 SWING OPERATOR Encounter Details Date Type Department Care Team Description 03/27/2017 Orders Only [facility] Orthopaedic Bebeto Roth S/P spi nal fusion Clinic MD Devan (Primary Dx) 9 [facility] [address] 4th [address] [place] [address] [phone] Social History Tobacco Use Types Packs/Day Years Used Date Smoking Tobacco: Never Smokeless Tobacco: Never Alcohol Use Standard Drinks/Week Comments No 0 (1 standard drink = 0.6 oz pure alcoho l) Sex Assigned at Date Recorded Not on file documented as of this encounter Plan of Treatment Not on filedocumented as of this encounter Results XR Spine Complete 2 Views (03/30/2017 12:40 PM BOOMSWING OPERATOR) Anatomical Region Laterality Modality Spine Computed Radiography Specimen (Source) Anatomical Location Collection Method / Collectio n Time Received Time / Laterality Volume Impressions 03/30/2017 1:17 PM BOOMSWING OPERATOR Impression: 1. Mild right convexed curvature of the main thoracic spine. 2. No ??global sagittal imbalance. 3. Weight bearing axis as detailed above . 4. Stable posterior instrumented fusion from T10 to L3 ALISHA POPE MD Narrative 03/30/2017 1:17 PM BOOMSWING OPERATOR EXAMINATION: XR SPINE COMPLETE 2 VW, XR [...] No substantial global coronal imbalance. Sagittal Vertical [place] (A vertical line drawn from the center [...] No substantial global coronal imbalance. Sagittal Vertical [place] (A vertical line drawn from the center [...] status documented in this encounter Care Teams Lens Cementer Relationship Specialty Start Date End Date Keri Elias PCP - General Family Practice 03/12/15 9 MD Ira Glez David Wayne, MD Orthopedics 07/09/14 [facility] [place] [id number] [place] [address] Astrid Rios PA-C Physician Photocopy Operator Physician Photocopy Operator - 07/09/14 Surgical documented as of this encounter
--- OUTSIDE RECORDS SUMMARY | 2021-12-22 08:41 | XMS_ITS | Encounter Summary ---
:1980 Author Organization [place] Address [address] [facility] [place] [address] Care Team Providers Name Role Phone Bebeto Roth MD Unavailable Astrid Rios PA-C Unavailable Keri Elias MD Primary Care Provider Unavailable Encounter Details Date Type Department Care Team Description 09/29/2017 [facility]esthesia Event [facility] Preoperative WahrPatria MD [address] [facility] [address] [place] [address] Assessment Center Cameron Manjarrez APRN [facility] [address] [place] [address] [address] [facility] 5th [place] [address] Anesthesia Record Procedure Summary Procedure [...] Anesthesia Preprocedure Evaluation - Cameron Manjarrez APRN SOAP TENDER - 09/29/2017 10:14 AM CDT Anesthesia Evaluation [...] Antibody Screen: Neg Test Valid Only At: [facility] Specimen Expires: 10/02/2017 09/29/2017 12:11 Color Urine: Yellow Appearance Urine: Clear Glucose Urine: Negative Bilirubin Urine: Negative Ketones Urine: Negative Specific Elaine Urine: 1.013 pH Urine: 6.0 Protein Albumin Urine: Negative Urobilinogen mg/dL: 0.0 Nitrite Urine: Negative Blood Urine: Large (A) Leukocyte Esterase Urine: Negative Source: Midstream Urine WBC Urine: 1 RBC Urine: 3 (H) Squamous Epithelial /HPF Urine: 3 (H) Transitional Epi: <1 (A) Mucous Urine: Present (A) PAC Discussion and Assessment ASA Classification: 2 Case is suitable for: [place] Anesthetic techniques and relevant risks discussed: GA Invasive monitoring and risk discussed: Yes Types: Possibility and Risk of blood transfusion discussed: Yes NPO instructions given: Additional anesthetic preparation and risks discussed: Needs early admission to pre-op area: Other: PAC Resident/ROOM SERVER Anesthesia Assessment: Azul Garg is a 37 [...] on filedocumented in this encounter Care Teams Vp Informatics Relationship Specialty Start Date End Date Keri Elias PCP - General Family Practice 03/12/15 9 MD Ira Glez David Wayne, MD Orthopedics 07/09/[address] [place] [address] Astrid Rios PA-C Physician Master Electrician Physician Master Electrician - 07/09/14 Surgical documented as of this encounter
--- OUTSIDE RECORDS SUMMARY | 2021-12-22 08:41 | XMS_ITS | Encounter Summary ---
:1980 Author Organization [place] Address [facility] [place] [address] Care Team Providers Name Role Phone Bebeto Roth MD Unavailable Astrid Rios PA-C Unavailable Keri Elias MD Primary Care Provider Unavailable Reason for Visit Reason Comments RECHECK 3 weeks post-, pt here to follow up in mid back fusion, s/p PSF T10-L3 10/12/09 Encounter Details Date Type Department Care Team Description 03/30/2017 Office Visit [facility]acolumbar region (Primary Dx); Clinic MD Devan S/P spinal fusion [address] [place] [address] [address] [place] [address] [phone] Social History Tobacco Use Types Packs/Day Years [...] 71.7 kg (158 lb) 03/30/2017 12:31 PM BURRER HAND Height 160.7 cm (5' 3.25) 03/30/2017 12:31 PM BURRER HAND Body Mass Index 27.77 03/30/2017 12:31 PM BURRER HAND documented in this encounter Progress Notes [...] No Joint stiffness: No Bone fracture: No ER HAND documented in this encounter Nursing Notes Kathleen Trotter CMA - 03/30/2017 12:30 PM CST Reason For Visit: Chief Complaint Patient presents with ??? RECHECK 3 weeks post-, pt here to follow up in mid back fusion, s/p PSF T10-L3 10/12/09 Primary MD: Keri Elias. MD: Self Referred Art Objects Repairer? 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 Date of injury: None Type of injury: [...] might be hidden Kathleen Trotter CMA 03/30/2017 ER HAND documented in this encounter Plan of Treatment Not on filedocumented as of this encounter Visit Diagnoses Diagnosis Adolescent idiopathic scoliosis of [facility] region - Primary Scoliosis (and kyphoscoliosis), idiopath ic S/P spinal fusion Arthrodesis status documented in this encounter Care Teams Shaker Tender Relationship Specialty Start Date End Date Keri Elias PCP - General Family Practice 03/12/15 9 MD Ira lGez David Wayne, MD Orthopedics 07/09/[address] [place] [address] Astrid Rios PA-C Physician Domestic Cleaner Physician Domestic Cleaner - 07/09/14 Surgical documented as of this encounter
--- OUTSIDE RECORDS SUMMARY | 2021-12-22 08:41 | XMS_ITS | Encounter Summary ---
:1980 Author Organization [place] Address [facility] [place] [address] Care Team Providers Name Role Phone Bebeto Roth MD Unavailable Astrid Rios PA-C Unavailable Keri Elias MD Primary Care Provider Unavailable Reason for Visit Auth/Cert Specialty Diagnoses / Procedures Referred By Contact Refer red To Contact Obstetrics Diagnoses Maternity*VINCENT 03/08/2017/Labor Encounter for triage in patient Labor and delivery, indication for care (normal spontaneous vaginal delivery) Ur [place] [address] [place] [address] Phone: Referral ID Status Reason Start Date Expiration Date Visits Requ ested Visits Authorized [id number] 1 1 Encounter Details Date Type Department Care Team Description 03/05/2017 Anesthesia Event [facility] Mauricio Hodges es Birthplace MD Flex [address] [address] [facility] [address] [place] [address] (Wo rk) Anesthesia Record Procedure [...] of intravascular, subdural or intrathecal injection: Yes SYSTEMS ANALYST Anesthesia Procedure Notes - Taye Hodges MD - 03/05/2017 9:27 PM IT SYSTEMS ANALYST Associated Order(s): ANE UU EPIDURAL BLOCK Epidural [...] what appeared to be a normal space. SYSTEMS ANALYST Anesthesia Preprocedure Evaluation - Taye Hodges MD [...] risks, benefits and alternatives discussed with: Patient.. SYSTEMS ANALYST documented in this encounter Plan of Treatment Not on filedocumented as of this encounter Procedures Procedure Name Priority Date/Time Associated Diagnosis Comme nts ANE EPIDURAL BLOCK Routine 03/06/2017 12:36 AM IT SYSTEMS ANALYST Procedure Note - Sapna Hodges MD - [...] ANE EPIDURAL BLOCK Routine 03/05/2017 9:29 PM IT SYSTEMS ANALYST Procedure Note - Sapna Hodges MD - [...] (MARCAINE) 0.125 % Given 03/05/2017 9:22 PM IT SYSTEMS ANALYST 5 mL s injection (diluted from stock concentration by MD or SOLE TRIMMER) EPIDURAL, PRN, Starting on 03/05/17 at 9, Anesthesia Intra-op Given 03/05/2017 9:19 PM IT SYSTEMS ANALYST 5 mLs lidocaine-EPINEPHrine 1.5 %-[id number] inj ection Given 03/05/2017 9:18 PM IT SYSTEMS ANALYST 3 mLs EPIDURAL, PRN, Starting on 03/05/17 at 8, Anesthesia Intra-op documented in this encounter Care Teams Automobile Sales Representative Relationship Specialty Start Date End Date Keri Elias PCP - General Family Practice 03/12/15 9 MD Ira Glez David Wayne, MD Orthopedics 07/09/[address] [facility] [facility] [address] [place] [address] Astrid Rios PA-C Physician Import And Export Clerk Physician Import And Export Clerk - 07/09/14 Surgical documented as of this encounter
--- OUTSIDE RECORDS SUMMARY | 2021-12-22 08:41 | XMS_ITS | Encounter Summary ---
:1980 Author Organization [place] Address [address] [facility] [place] [address] Care Team Providers Name Role Phone Bebeto Roth MD Unavailable Astrid Rios PA-C Unavailable Keri Elias MD Primary Care Provider Unavailable Reason for Visit Reason Comments UTI Encounter Details Date Type Department Care Team Description 07/05/2017 Office Visit [facility] Lakisha Cantu, Bladder in fection (Primary Dx); Medicine Clinic DO Environmental allergies; [address] [facility] Dermatitis [address] [place], [place] [phone] [address] Social History Tobacco Use Types Packs/Day Years [...] (UA) ([facility]) Result Value Ref Range Specific [place] Urine 1.020 1.005 - 1.030 pH Urine [...] urine culture. - Urinalysis, Micro If (UA) ([facility]) - cephALEXin (KEFLEX) 500 MG capsule; Take 1 capsule (500 mg) by mouth 2 times daily - Urine Culture Aerobic Bacterial Environmental allergies - fluticasone (FLONASE) 50 MCG/ACT spray; [place] 1-2 sprays into both nostrils daily Dermatitis [...] Component Value Ref Test Analysis Performed At [facility] gist Range Method Time Signature Specimen Midstream Urine INFECTIOUS Description DISEASE DIAGNOSTIC LABORATORY Special Specimen 07/05/2017 [facility] received in 4:48 PM CDT [facility] preservative [place] Culture Micro No growth 07/06/2017 INFECTIOUS 10:09 PM DISEASE CDT DIAGNOSTIC LABORATORY Specimen (Source) Anatomical Collection Method Collection Time Re ceived Time Location / / Volume Laterality Examination of 07/05/2017 12:58 8 1:02 midstream urine PM CDT PM CDT specimen (procedure) Lakisha Cantu DO LAB - MICRO GENERAL ORDERABL ES Performing Organization Address City/State/ZIP Code Phon e Number INFECTIOUS DISEASES [address] [place] [address] DIAGNOSTIC LABORATORY, [facility] INFECTIOUS DISEASE [address] [place] [address], [facility] DIAGNOSTIC LABORATORY [address] [address], [facility] (ABNORMAL) Urinalysis, Micro If (UA) ([facility]) (07/05/2017 9:39 AM CDT) [facility] gist Method Time Signature Specific [place] 1.020 1.005 - [facility] Urine 1.030 FAMILY [...] Phon e Number [facility] [address] [place] [phone] [facility] documented in this encounter Visit Diagnoses Diagnosis Bladder infection - Primary Cystitis, unspecified Environmental allergies Allergic rhinitis, cause unspecified Dermatitis Contact dermatitis and other eczema, due to unspecified cause documented in this encounter Care Teams Hoop Cutter Relationship Specialty Start Date End Date Keri Elias PCP - General Family Practice 03/12/15 9 MD Ira Glez, Bebeto Hartman MD Orthopedics 07/09/14 [facility] [place] [address] Astrid Rios PA-C Physician Silver Buffer Physician Silver Buffer - 07/09/14 Surgical documented as of this encounter
--- OUTSIDE RECORDS SUMMARY | 2021-12-22 08:41 | XMS_ITS | Encounter Summary ---
:1980 Author Organization [facility] Address [address] [place] [address]. [place] [address] Care Team Providers Name Role Phone Bebeto Roth MD Unavailable Astrid Rios PA-C Unavailable Keri Elias MD Primary Care Provider Unavailable Reason for Visit Reason Comments Laboring Auth/Cert Specialty Diagnoses / Procedures Referred By Contact Refer red To Contact Obstetrics Diagnoses Maternity*VINCENT 03/08/2017/Labor Encounter for triage in patient Labor and delivery, indication for care (normal spontaneous vaginal delivery) [address] [address] Phone: Referral ID Status Reason Start Date Expiration Date Visits Requ ested Visits Authorized [id number] 1 1 Encounter Details Date Type Department Care Team Description 03/05/2017 - Hospital Encounter [facility] Keri Elias MD (normal spontaneous vaginal delivery) (Primary Dx); 03/07/2017 [facility] Birthplace Lakisha Cantu DO [facility] [address] [place], [place] [id number] test positive [address] [place] [id number] Social History Tobacco Use Types Packs/Day Years Used Date Smoking Tobacco: Never Smokeless Tobacco: Never Alcohol Use Standard Drinks/Week Comments No 0 (1 standard drink = 0.6 oz pure alcoho l) Sex Assigned at Date Recorded Not on file documented as of this encounter Last Filed Vital Signs Vital Sign Reading Time Taken Comments Blood Pressure 105/76 03/07/2017 7:58 AM HOUSE MOVER HELPER Pulse 109 03/05/2017 5:34 PM HOUSE MOVER HELPER Temperature 36.6 ??C (97.8 ??F) 03/07/2017 7:58 AM HOUSE MOVER HELPER Respiratory Rate 18 03/07/2017 7:58 AM HOUSE MOVER HELPER Oxygen Saturation 97% 03/06/2017 11:30 AM HOUSE MOVER HELPER Inhaled Oxygen Concentration - - Weight - - Height - - Body Mass Index - - documented in this encounter Discharge Summaries Lakisha Cantu DO - 03/07/2017 9:50 AM CST Images from the original note were not included. [facility] Medicine Post- Discharge Summary Azul Tellez Age: [age] year old Date of : 1980 Date of Admission: 03/05/2017 Date of Discharge:: 03/07/2017 Admitting Physician: Keri Elias MD Discharge Physician: Lakisha Cantu DO Home clinic: [facility] Admission Diagnoses: Maternity*VINCENT 03/08/2017/Labor Encounter for triage in patient Labor and delivery, indication for care (normal spontaneous vaginal delivery) Discharge Diagnosis: Normal spontaneous vaginal delivery Intrauterine at 39+5 weeks gestation Patient Active Problem List Diagnosis ??? Adolescent idiopathic scoliosis ??? Health Nursing Home ??? Acne vulgaris ??? Anxiety ??? Congenital [...] time ??? fluticasone (FLONASE) 50 MCG/ACT spray [place] 1-2 sprays into both nostrils daily 16 [...] Frequent UTI fluticasone (FLONASE) 50 MCG/ACT spray [place] 1-2 sprays into both nostrils daily Qty: [...] Associated Diagnoses: Dermatitis blood glucose monitoring (ACCU-CHEK ROSEY PLUS) meter [...] Disposition: Discharged to home Lakisha Cantu DO E MOVER HELPER documented in this encounter Discharge Instructions Discharge [...] hands. Keep your nails clean and short. E MOVER HELPER documented in this encounter Medications at Time [...] Abnormal maternal glucose tolerance, antepartum fluticasone (FLONASE) [place] 1-2 sprays into 16 g 3 07/05/2017 [...] Diagnosis ??? Adolescent idiopathic scoliosis ??? Health Nursing Home ??? Acne vulgaris ??? Anxiety ??? Congenital [...] movement control. DO [facility] E MOVER HELPER Keri Elias MD - 03/05/2017 6:15 PM [...] Diagnosis ??? Adolescent idiopathic scoliosis ??? Health Nursing Home ??? Acne vulgaris ??? Anxiety ??? Congenital [...] delivery, considering NO gas. Gin Deutsch DO [facility] Attestation: This patient has been seen and evaluated by me, Keri Elias on 03/05/2017. I saw and discussed the case with the primary resident the care team. I agree with the findings and plan in this note. I have reviewed today's vital signs, medications, laboratory results. Keri Elias MD [facility] E MOVER HELPER documented in this encounter Miscellaneous Notes L&D Delivery Note - Keri Elias MD - 03/07/2017 1:44 PM HOUSE MOVER HELPER OB Vaginal Delivery Note Azul Tellez Age: [age] year old Date of : 1980 GA: 39w5d GP: Labor Complications: None EBL: mL QBL: 105 mL Delivery Type: Vaginal, Spontaneous Delivery ROM to Delivery Time: 5h 02m [place] Weight: 3.65 kg (8 lb 0.8 oz) [...] Normal 1:1 continuous labor support provided by?: laborer laboratory/Placenta Date and Time Delivery Date: 03/06/17 Delivery Time: 12:52 AM Placenta Date/Time: 03/06/2017 12:58 AM Oxytocin given at the time of delivery: after delivery of baby Vaginal Counts Initial count performed by 2 team members: Two Team Members Jada Gonzalez RN [place] Suture [place] Sponges Instruments Initial counts 2 5 Added [...] present?: Neg Delivery (Maternal) (Provider to Complete) ([id number]) Episiotomy: None Perineal lacerations: 1st Repaired?: No Labial laceration: right Repaired?: No Vaginal laceration?: No Cervical laceration?: No Mother's Information Mother: Azul Mcclellan #[id number] Start of Mother's Information IO Blood Loss 03/05/17 1730 - 03/07/17 0052 Mom's I/O Activity End of Mother's Information Mother: Azul Mcclellan #[id number] Delivery - Provider to Complete ([id number]) Delivering clinician: KERI ELIAS Attempted Delivery Types [...] Occiput Anterior DO [facility] Attestation: This patient has been seen and evaluated by me, Keri Elias on 03/06/17. I saw and discussed the case with the primary resident the care team. I agree with the findings and plan in this note. I have reviewed today's vital signs, medications, laboratory results. I was present for the entire delivery. [facility] E MOVER HELPER Plan of Care - Anuja Martins RN - 03/07/2017 11:38 AM CST Problem: Patient Care Overview Goal: Plan of Care/Patient Progress Review Outcome: Adequate for Discharge Date Met: 03/07/17 Patient is stable, claimed her meds are helping. Encouraged to soak in the tub at home to relax soremuscles. Independent with self and baby. Discharge instructions reviewed with her and questions wereanswered. Discharge to home today with baby. E MOVER HELPER Plan of Care - Collin Oh RN [...] Looking forward to discharge to home today. E MOVER HELPER Plan of Care - Amelia Martinez RN - 03/07/2017 7:50 AM CST Referral made to [facility] for early dc. E MOVER HELPER Plan of Care - Anna Morgan RN [...] person in room. Continue plan of care. E MOVER HELPER Plan of Care - Deborah Sparks RN [...] present. Plan: continue with plan of care. E MOVER HELPER Note - Jose Cummings RN - 03/06/2017 [...] will continue to call for help prn. E MOVER HELPER Plan of Care - Apoorva Gold RN [...] new family booklet, safe sleep, feeding cues, [place] and pain management. See flow record. Response: Positive attachment behaviors observed with infant. Support persons Yohan present. Plan: continue plan of care. E MOVER HELPER Provider Notification - Apoorva Gold RN - 03/06/2017 6:36 AM CST 03/06/17 0636 Provider Notification Provider Name/Title Jada Method of Notification Electronic Page Request Evaluate-Remote Notification Reason Medication Request (Tums) Patient is requesting Tums for heartburn. Please order as soon as you can, thanks! E MOVER HELPER Plan of Care - Apoorva Gold RN - 03/06/2017 6:09 AM CST Patient [facility] to [facility] unit via wheelchair at 0330,with belongings, accompanied by spouse/ significant other, with in arms. Received report from Rebecca Regalado at 0300 over the phone and checked bands. Unit and room orientation completd. Call light given and within arms reach; no concerns present atthis time. Continue with plan of care. E MOVER HELPER Plan of Care - Mary Lindsey RN - 03/06/2017 3:49 AM CST Data: Azul Tellez transferred to [facility] via wheelchair at 0330. Baby transferred via parent'sarms. Action: Receiving unit notified of transfer: Yes. Patient and family notified of room change. Reportgiven to KENNY Guerin at 0300. Belongings sent to receiving unit. Accompanied by Registered Nurse. Oriented patient to surroundings. Call light within reach. ID bands double-checked with receiving RN. Response: Patient tolerated transfer and is stable. E MOVER HELPER Provider Notification - Mary Lindsey RN - 03/06/2017 2:23 AM CST 03/05/17 5120 Provider Notification Provider Name/Title MDA Method of Notification At Bedside Request Evaluate in Person Notification Reason Other (Comment) (replacing epidural) Pt. Uncomfortable, feels epidural isn't working. MDA in to assess. Epidural fell out. Second one placed. Continue to monitor. E MOVER HELPER Plan of Care - Mary Lindsey RN [...] No repairs. Pitocinper protocol. Continue pp cares. E MOVER HELPER Plan of Care - Yasmine Phillips RN [...] in for pt to help with relaxation. E MOVER HELPER Provider Notification - Yasmine Phillips RN - 03/05/2017 10:44 PM CST 03/05/17 222 Provider Notification Provider Name/Title MDA Method of Notification Phone Request Evaluate - Remote Notification Reason Status Update Discussed pt status post-epidural placement. Discussed how tape was coming off and placed tape on tokeep site stable. MDA ok with intervention. No further orders. E MOVER HELPER Provider Notification - Yasmine Phillips RN - 03/05/2017 10:43 PM CST 03/05/17 2239 Provider Notification Provider Name/Title MDA Method of Notification Phone Request Evaluate - Remote Notification Reason Patient Request Discussed pt s/s with provider. No concerns at this time. Will continue to support and update provider as needed. E MOVER HELPER Provider Notification - Yasmine Phillips RN - 03/05/2017 10:02 PM CST 03/05/17 2200 Provider Notification Provider Name/Title FP Resident Method of Notification In Department Request Evaluate in Person Notification Reason Status Update Strip reviewed intra-department. No further orders or concerns. E MOVER HELPER Provider Notification - Yasmine Phillips RN - 03/05/2017 9:54 PM CST 03/05/17 2115 Provider Notification Provider Name/Title FP Resident Method of Notification At Bedside Request Evaluate in Person Notification Reason Status Update Strip reviewed at bedside with provider as a LD was seen. No further orders. Variability still moderate. E MOVER HELPER Plan of Care - Lisa Peralta RN [...] Outcome: No Change Data: [facility] Reason for maternal/ assessment per [...] ambulatory, oriented to room and call light. E MOVER HELPER documented in this encounter Plan of Treatment Not on filedocumented as of this encounter Procedures Procedure Name Priority Date/Time Associated Diagnosis Comme nts HEMOGLOBIN Routine 03/07/2017 7:07 AM Results f or this HOUSE MOVER HELPER procedure are i n the results section . PLATELET COUNT STAT 03/05/2017 6:28 PM Results for this HOUSE MOVER HELPER procedure are i n the results section . HEMOGLOBIN STAT 03/05/2017 6:28 PM Results f or this HOUSE MOVER HELPER procedure are i n the results section . ABO AND RH STAT 03/05/2017 6:28 PM Results f or this HOUSE MOVER HELPER procedure are i n the results section . documented in this encounter Results (ABNORMAL) Hemoglobin (03/07/2017 7:07 AM HOUSE MOVER HELPER) P athologist Signature Hemoglobin 9.0 (L) 11.7 - 15.7 03/07/2017 [facility] g/dL 7:24 AM HOUSE MOVER HELPER [facility] Specimen Anatomical Collection Method Collection Time Receive d Time (Source) Location / / Volume Laterality Blood specimen 03/07/2017 7:07 AM 018 7:11 (specimen) HOUSE MOVER HELPER AM HOUSE MOVER HELPER Keri Elias MD LAB - BLOOD ORDERABLES Performing Organization Address City/State/ZIP Code Phon e Number [address] [address] [facility] Platelet count (03/05/2017 6:28 PM HOUSE MOVER HELPER) P athologist Signature Platelet Count 281 150 - 450 03/05/2017 [facility] 10e9/L 6:35 PM HOUSE MOVER HELPER [facility] Specimen Anatomical Collection Method Collection Time Receive d Time (Source) Location / / Volume Laterality Blood specimen 03/05/2017 6:28 PM 018 6:30 (specimen) HOUSE MOVER HELPER PM HOUSE MOVER HELPER Keri Elias MD LAB - BLOOD ORDERABLES Performing Organization Address City/State/ZIP Code Phon e Number [address] [address] [facility] (ABNORMAL) Hemoglobin (03/05/2017 6:28 PM HOUSE MOVER HELPER) P athologist Signature Hemoglobin 10.2 (L) 11.7 - 03/05/2017 [facility] 15.7 g/dL 6:35 PM HOUSE MOVER HELPER [facility] Specimen Anatomical Collection Method Collection Time Receive d Time (Source) Location / / Volume Laterality Blood specimen 03/05/2017 6:28 PM 018 6:30 (specimen) HOUSE MOVER HELPER PM HOUSE MOVER HELPER Keri Elias MD LAB - BLOOD ORDERABLES Performing Organization Address City/State/ZIP Code Phon e Number [address] [address] [facility] ABO and Rh (03/05/2017 6:28 PM HOUSE MOVER HELPER) Patholo gist Method Time Signature ABO O 03/05/2017 [facility] 6:58 PM HOUSE MOVER HELPER [facility] RH(D) Pos [facility] Specimen 03/08/2017 03/05/2017 [facility] Expires 6:39 PM HOUSE MOVER HELPER [facility] Specimen Anatomical Collection Method Collection Time Receive d Time (Source) Location / / Volume Laterality Blood specimen 03/05/2017 6:28 PM 018 6:30 (specimen) HOUSE MOVER HELPER PM HOUSE MOVER HELPER Keri Elias MD LAB - BLOOD BANK TEST ORDER Performing Organization Address City/State/ZIP Code Phon e Number [facility] [address] [place] [address] [facility] documented in this encounter Visit Diagnoses Diagnosis [...] (TYLENOL) tablet 650 Given 03/07/2017 7:21 AM HOUSE MOVER HELPER 650 mg mg 650 mg, Oral, EVERY 4 HOURS PRN, mild pain, fever, greater than or equal to 38?? C /100.4?? F (oral) or 38.5?? C/ 101.4?? F (core)., Starting on Mon03/06/17 at 0129, Maximum acetaminophen dose from all sources = 75 mg/kg/day not to exceed 4 grams/day. Given 03/06/2017 11:45 PM HOUSE MOVER HELPER 650 mg Given 03/06/2017 7:28 PM HOUSE MOVER HELPER 650 mg calcium carbonate (TUMS) chewable tablet 500 Given 10:10 PM HOUSE MOVER HELPER 500 mg mg 500 mg, Oral, DAILY PRN, heartburn, Starting on Mon03/05/17 at 2147 calcium carbonate (TUMS) chewable tablet 500 mg 500 mg, Oral, DAILY PRN, heartburn, Starting on Mon at 0638 diphenhydrAMINE (BENADRYL) injection 25 mg Given 03/06/2017 4:10 AM HOUSE MOVER HELPER 25 mg 25 mg, Intravenous, EVERY 6 HOURS PRN, itching, sleep, anxiety, Administer over 1-2 Minutes, Starting on Mon03/06/17 at 0336, For ordered doses up to 50 mg, give IV Push undiluted. Give each 25mg over a minimum of 1 minute. Extend in non-emergency fentaNYL (PF) (SUBLIMAZE) injection 50-100 Given 03/05/2017 7:33 PM HOUSE MOVER HELPER 50 mcg mcg 50-100 mcg, Intravenous, EVERY [...] tablet 800 mg Given 03/06/2017 1:27 AM HOUSE MOVER HELPER 800 mg 800 mg, Oral, ONCE PRN, moderate pain, mild-moderate pain, Starting on 03/05/17 at 1810, For 1 dose, Available for administration after delivery. May give with acetaminophen. ibuprofen (ADVIL/MOTRIN) tablet 800 mg Given 03/07/2017 7:21 AM HOUSE MOVER HELPER 800 mg 800 mg, Oral, EVERY 6 HOURS PRN, other, cramping, Starting on 03/06/17 at 0129, Max dose: 3200 mg/day Given 03/06/2017 8:42 PM HOUSE MOVER HELPER 800 mg Given 03/06/2017 2:27 PM HOUSE MOVER HELPER 800 mg lactated ringers BOLUS 1,000 mL New Bag 03/05/2017 8:37 PM HOUSE MOVER HELPER 1,000 mLs Intravenous, 1,000 mL, ONCE PRN, IF patient to have epidural or intrathecal narcotics and NOT pre-eclamptic, Starting on Mon03/05/17 at 1810, For 1 dose, IV bolus 15-30 min prior to epidural, then IV fluids per labor orders lactated ringers BOLUS 500 mL New Bag 03/05/2017 6:17 PM HOUSE MOVER HELPER 500 mLs Intravenous, 500 mL, ONCE PRN, per policy for intrauterine resuscitation or uterine tachysystole, Starting on Mon03/05/17 at 1810, For 1 dose lactated ringers infusion New Bag 03/05/2017 11:53 PM HOUSE MOVER HELPER 125 mL/hr at 125 mL/hr, Intravenous, CONTINUOUS, Starting on Mon03/05/17 at 1830, Until Mon03/06/17 at 0129 Rate/Dose Verify 03/05/2017 8:27 PM HOUSE MOVER HELPER 125 mL/hr 03/05/2017 7:20 PM HOUSE MOVER HELPER 125 mL/hr naphazoline-pheniramine (OPCON-A/VISINE A/NAPHCON A) ophthalmic solution 1 drop 1 drop, Ophthalmic, 4 TIMES DAILY PRN, d ry eyes, Starting on Mon03/06/17 at 0358 nitrous oxide/oxygen 50/50 blend Given 03/05/2017 6:45 PM HOUSE MOVER HELPER Inhalation, CONTINUOUS PRN, episodic analgesia, Starting on [...] units in New Bag 03/06/2017 12:54 AM HOUSE MOVER HELPER 340 mL/hr 340 mL/hr 500 mL 0.9% [...] mL/hr units in 500 mL 0.9% NaCl HOUSE MOVER HELPER infusion 100 mL/hr, Intravenous, CONTINUOUS, Starting on [...] for loose stools. Given 03/06/2017 7:41 AM HOUSE MOVER HELPER 1 tablet senna-docusate (SENOKOT-S;PERICOLACE) 8. 6-50 MG per tablet 2 tablet 2 tablet, Oral, 2 TIMES DAILY PRN, const ipation, Starting on Mon03/06/17 at 0129, Hold for loose stools. documented in this encounter Active and Recently Administered Medications Times are shown in HOUSE MOVER HELPER. Scheduled Medication Order 03/05/2017 03/06/2017 03/07/2017 fentaNYL (SUBLIMAZE) 2 mcg/mL, bupivacai ne (MARCAINE) 0.125% in NS premix for PCEA (CANCELED) 2118 (New Bag by Other Clinician - Provider: Yasmine ulloa, KENNY) 104 (Stopped - Provider: Mary Lindsey RN) EPIDURAL, RECORDS ASSISTANT, First dose on Mon03/05/17 at 2045, Absolutely [...] RN) 50-100 mcg, Intravenous, EVERY 1 HOUR [place] N, Starting 03/05/17 at 1848, other, desired [...] stools.
documented in this encounter Care Teams Slot Editor Relationship Specialty Start Date End Date Keri Elias PCP - General Family Practice 03/12/15 9 MD Ira Glez David Wayne, MD Orthopedics 07/09/[address] [place] [id number] Astrid Rios PA-C Physician Billet Assembler Physician Billet Assembler - 07/09/14 Surgical documented as of this encounter
--- OUTSIDE RECORDS SUMMARY | 2021-12-22 08:41 | XMS_ITS | Encounter Summary ---
:1980 Author Organization [place] Address [address] [facility] [place] [address] Care Team Providers Name Role Phone Bebeto Roth MD Unavailable Astrid Rios PA-C Unavailable Keri Elias MD Primary Care Provider Unavailable Francisco Mezt MD Primary Care Provider [phone] Francisco Metz MD Unavailable [phone] Kenton Katz MD Unavailable Unavailable Karen Veliz DO Primary Care Provider Kenton Katz MD Unavailable Unavailable Karen Veliz DO Unavailable Reason for Visit Reason Onset Date Comments No Show 03/27/2017 RTN No Show #3 Encounter Details Date Type Department Care Team Description 03/27/2017 Telephone [facility] Keri Elias No Show (RTN No Show Medicine Clinic MD [place] #3) [address], [address] [place], [place] [address] Social History Tobacco Use Types Packs/Day Years [...] the virtual schedule to meet with you. 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 documented in this encounter Plan of Treatment Not on filedocumented as of this encounter Visit Diagnoses Not on filedocumented in this encounter Care Teams Groundskeeper Relationship Specialty Start Date End Date Keri Elias PCP - General Family Practice 03/12/15 9 MD Isaías Glez Mitchell PCP - General Family Practice 11/14/18 04/02/20 MD Stevie Karen Veliz, PCP - General Family Medicine 04/03/[address] [place] [id number] Bebeto Roth MD Orthopedics 07/09/[address] [id number] Astrid Rios PA-C Physician Student Education Specialist Physician Student Education Specialist - 07/09/14 Surgical Francisco Metz Assigned PCP 07/04/19 02/01/20 MD Stevie [address] [place] [id number] Kenton Katz Assigned PCP 02/02/20 08/27/20 MD Feliberto NO INFO AVAILABLE Kenton Katz Assigned Endocrinology 08/28/20 07/23/21 MD Feliberto Provider NO INFO AVAILABLE Karen Veliz, Assigned PCP 08/28/[address] [place] [id number] documented as of this encounter
--- OUTSIDE RECORDS SUMMARY | 2021-12-22 08:41 | XMS_ITS | Encounter Summary ---
:1980 Author Organization [facility] Address [facility] [place] [address] Care Team Providers Name Role Phone Bebeto Roth MD Unavailable Astrid Rios PA-C Unavailable Keri Elias MD Primary Care Provider Unavailable Encounter Details Date Type Department Care Team Description 09/29/2017 Allied Health/Nurse [facility] Preoperative Rn, Pac Visit Assessment Center [address] [place] [address] 5th Floor [place] [phone] Social History Tobacco Use Types Packs/Day [...] Arrival time: 5:30 am Please come to: [facility] [address] [place] [address] -Medical Transcriber parking is available in front of [facility] from 5:15AM to 8:00PM. If you prefer, park your car in the Green Lot. -Proceed to the 3rd floor, check in at the Adult Surgery Waiting Lounge. [phone] If an escort is needed stop at [...] - Do NOT wear any makeup, fingernail bulgarian or jewelry. - Begin using Incentive Spirometer 1 week prior to surgery. Use 4 times per day, up to 5-10 breaths each time. Bring Incentive Spirometer to hospital. Questions or Concerns: If you have questions or concerns prior to your surgery, call [phone]. (Mon - Fri 8 am- 5:30 pm) [...] on filedocumented in this encounter Care Teams Office Support Assistant Relationship Specialty Start Date End Date Keri Elias PCP - General Family Practice 03/12/15 9 MD Ira Glez David Wayne, MD Orthopedics 07/09/14 [facility] [place] [id number] Astrid Rios PA-C Physician Ui Programmer Physician Ui Programmer - 07/09/14 Surgical documented as of this encounter
--- OUTSIDE RECORDS SUMMARY | 2021-12-22 08:41 | XMS_ITS | Encounter Summary ---
:1980 Author Organization [place] Address [address] [facility] [place] [address] Care Team Providers Name Role Phone Bebeto Roth MD Unavailable Astrid Rios PA-C Unavailable Keri Elias MD Primary Care Provider Unavailable Francisco Metz MD Primary Care Provider [phone] Francisco Metz MD Unavailable [phone] Kenton Katz MD Unavailable Unavailable Karen Veliz DO Primary Care Provider Kenton Katz MD Unavailable Unavailable Karen Veliz DO Unavailable Reason for Visit Reason Onset Date Comments Outreach 03/13/2017 Rtn no show #2 Encounter Details Date Type Department Care Team Description 03/13/2017 Telephone [facility] Keri Elias h (Rtn no show Medicine Clinic MD [place] #2 ) [address], [address] [place], [place] [address] Social History Tobacco Use Types Packs/Day Years [...] some of your recently scheduled appointments. At [facility] we have a new no show policy, where if you miss too many appointments within 1 year, we may not be able to continue to schedule you. If you are unable to make your scheduled appointments, please call the clinic to cancel prior to your appointment time. 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 documented in this encounter Plan of Treatment Not on filedocumented as of this encounter Visit Diagnoses Not on filedocumented in this encounter Care Teams Senior Tax Specialist Relationship Specialty Start Date End Date Keri Elias PCP - General Family Practice 03/12/15 9 MD Isaías Glez Mitchell PCP - General Family Practice 11/14/18 04/02/20 MD Stevie Karen Veliz PCP - General Family Medicine 04/03/202019 [place] [address] Bebeto Roth MD Orthopedics 07/09/[address] [address] Astrid Rios PA-C Physician Circle Saw Operator Physician Circle Saw Operator - 07/09/14 Surgical Francisco Metz Assigned PCP 07/04/19 02/01/20 MD Stevie 2019 [place] [address] Kenton Katz Assigned PCP 02/02/20 08/27/20 MD Feliberto NO INFO AVAILABLE Kenton Katz Assigned Endocrinology 08/28/20 07/23/21 MD Feliberto Provider NO INFO AVAILABLE Karen Veliz, Assigned PCP 08/28/[address] [place] [address] documented as of this encounter
--- OUTSIDE RECORDS SUMMARY | 2021-12-22 08:41 | XMS_ITS | Encounter Summary ---
:1980 Author Organization [place] Address [address] [facility] [place] [address] Care Team Providers Name Role Phone Bebeto Roth MD Unavailable Astrid Rios PA-C Unavailable Keri Elias MD Primary Care Provider Unavailable Reason for Visit Diagnostic Imaging XR - Closed Specialty Diagnoses / Procedures Referred By Contact Refer red To Contact Diagnoses S/P spinal fusion Bebeto Roth MD Procedures XR Spine Complete 2 Views [address] [place], [place] [address] Referral ID Status Reason Start Date Expiration Date Visits Requ ested Visits Authorized [id number] Closed 06/28/2017 06/28/2018 1 1 Encounter Details Date Type Department Care Team Description 06/29/2017 Radiant Appointment [facility] Orthopaedics Bebeto Roth S/P spinal fusion XRay MD Devan 9 [facility] SE [address] 4th [address] [facility], [address] [place] [address] [phone] Social History Tobacco Use Types Packs/Day Years [...] No substantial global coronal imbalance. Sagittal Vertical [place] (A vertical line drawn from the center [...] No substantial global coronal imbalance. Sagittal Vertical [place] (A vertical line drawn from the center [...] status documented in this encounter Care Teams Market Sales Manager Relationship Specialty Start Date End Date MeghaAlexa Tysonne PCP - General Family Practice 03/12/15 9 MD Ira Glez David Wayne, MD Orthopedics 07/09/[address] [place] [address] Astrid Rios PA-C Physician Rolling Up Machine Operator Physician Rolling Up Machine Operator - 07/09/14 Surgical documented as of this encounter
--- OUTSIDE RECORDS SUMMARY | 2021-12-22 08:41 | XMS_ITS | Encounter Summary ---
:1980 Author Organization [place] Address [address] [facility] [place] [address] Care Team Providers Name Role Phone Bebeto Roth MD Unavailable Astrid Rios PA-C Unavailable Keri Elias MD Primary Care Provider Unavailable Reason for Visit Reason Onset Date Comments Call To Schedule Appointment 03/07/2017 PDP-MOM Encounter Details Date Type Department Care Team Description 03/07/2017 Telephone [facility] Keri Elias Call To Schedule Medicine Clinic MD [place] Appointment (PDP-MOM) [address] [place] [address], [address] [place], [place] [address] Social History Tobacco Use Types Packs/Day Years Used Date Smoking Tobacco: Never Smokeless Tobacco: Never Alcohol Use Standard Drinks/Week Comments No 0 (1 standard drink = 0.6 oz pure alcoho l) Sex Assigned at Date Recorded Not on file documented as of this encounter Miscellaneous Notes Telephone Encounter - Tala Velasco CMA - 03/08/2017 11:27 AM CST Patient scheduled 03/23/17 and 04/12/17. RDS MANAGEMENT MANAGER Telephone Encounter - Clarita Gunderson RN - 03/07/2017 3:47 PM CST Please call patient to schedule 2 week and 6 week visits: Date of Delivery: 03/06/17 Date of Discharge: 03/07/17 Please document all calls. Close encounter after appointment is scheduled or after last attempt has been made Clarita Gunderson RN RDS MANAGEMENT MANAGER documented in this encounter Plan of Treatment Not on filedocumented as of this encounter Visit Diagnoses Not on filedocumented in this encounter Care Teams Double Bass Player Relationship Specialty Start Date End Date Keri Elias PCP - General Family Practice 03/12/15 9 MD Ira Glez David Wayne, MD Orthopedics 07/09/14 [facility] [address] [facility] [address] [place] [address] Astrid Rios PA-C Physician Heel Stainer Physician Heel Stainer - 07/09/14 Surgical documented as of this encounter
--- OUTSIDE RECORDS SUMMARY | 2021-12-22 08:41 | XMS_ITS | Encounter Summary ---
:1980 Author Organization [place] Address [address] [facility] [place] [address] Care Team Providers Name Role Phone Bebeto Roth MD Unavailable Astrid Rios PA-C Unavailable Keri Elias MD Primary Care Provider Unavailable Reason for Visit Reason Comments Pre-Op Exam Encounter Details Date Type Department Care Team Description 09/29/2017 Office Visit [facility] Cameron [facility] Assessment Center BLAYNE Ramirez HUMAN CAPITAL CONSULTANT physical exam 9[address] [facility] SE [address] [facility] (Primary Dx) 5th Floor [place], [place] [id number] Anesthesia Record Procedure Summary Procedure Name [...] this encounter H&P Notes Cameron Manjarrez APRN SPEECH LANGUAGE SPECIALIST - 09/29/2017 10:00 AM CDT Images from [...] Dr. Roth in treatment of scoliosis at [facility]. History is obtained from the patient. She [...] morning ??? fluticasone (FLONASE) 50 MCG/ACT spray [place] 1-2 sprays into both nostrils daily (Patient takingdifferently: [place] 1-2 sprays into both nostrils as needed [...] Neg Test Valid Only At Latest Units: [facility] Specimen Expires Unknown 10/02/2017 Color Urine Unknown Yellow Appearance Urine Unknown Clear Glucose Urine Latest Ref Range: NEG^Negative mg/dL Negative Bilirubin Urine Latest Ref Range: NEG^Negative Negative Ketones Urine Latest Ref Range: NEG^Negative mg/dL Negative Specific [place] Urine Latest Ref Range: 1.003 - 1.035 [...] Dr Shaikh. BLAYNE Palomino Preoperative Assessment Center [facility] documented in this encounter Plan of Treatment Not on filedocumented as of this encounter Results (ABNORMAL) UA reflex to Microscopic and Culture (09/29/2017 12:11 PM CDT) [facility] Time Signature Color Urine Yellow 09/29/2017 [facility] 12:41 PM [facility] Appearance Urine Clear 09/29/2017 [facility] 12:41 PM [facility] Glucose Urine Negative NEG^Negat 09/29/2017 [facility] mg/dL 12:41 PM [facility] Bilirubin Urine Negative NEG^Negat 09/29/2017 [facility] franco 12:41 PM [facility] Ketones Urine Negative NEG^Negat 09/29/2017 [facility] [place] mg/dL 12:41 PM [facility] Specific [place] 1.013 1.003 - 09/29/2017 [facility] F Urine 1.035 12:41 PM [facility] Blood Urine Large (A) NEG^Negat 09/29/2017 [facility] [place] 12:41 PM [facility] pH Urine 6.0 5.0 - 7.0 09/29/2017 [facility] pH 12:41 PM [facility] Protein Albumin Negative NEG^Negat 09/29/2017 [facility] Urine fr[place] mg/dL 12:41 PM [facility] Urobilinogen 0.0 0.0 - 2.0 09/29/2017 [facility] mg/dL mg/dL 12:41 PM [facility] Nitrite Urine Negative NEG^Negat 09/29/2017 [facility] franoc 12:41 PM [facility] Leukocyte Negative NEG^Negat 09/29/2017 [facility] Esterase Urine franco 12:41 PM [facility] Source Midstream 09/29/2017 [facility] Urine 12:16 PM [facility] RBC Urine 3 (H) 0 - 2 09/29/2017 [facility] /HPF 12:41 PM [facility] WBC Urine 1 0 - 5 09/29/2017 [facility] /HPF 12:41 PM [facility] Squamous 3 (H) 0 - 1 09/29/2017 [facility] Epithelial /HPF /HPF 12:41 PM [place] Urine [facility] Transitional Epi <1 (A) FEW^Few 09/29/2017 [facility] F /HPF 12:41 PM [facility] Mucous Urine Present (A) NEG^Negat 09/29/2017 [facility] [place] /LPF 12:41 PM [facility] Specimen (Source) Anatomical Collection Method Collection Time Re ceived Time Location / / Volume Laterality Examination of 09/29/2017 12:11 8 midstream urine PM T 12:16 PM CDT specimen (procedure) Cameron Manjarrez APRN, CNP LAB - URINE ORDERABLES Performing Organization Address City/[facility]/ZIP Code Phon e Number [phone] [place] [address] [facility] Hemoglobin A1c (09/29/2017 12:03 PM CDT) P athologist Signature Hemoglobin A1C 5.3 0 - 5.6 % 09/29/2017 [facility] 12:48 PM CDT [facility] Comment: Normal <5.7% Prediabetes 5.7-6.4% ??Diab etes 6.5% or higher - adopted from ADA consensus guidelines. Specimen Anatomical Collection Method Collection Time Receive d Time (Source) Location / / Volume Laterality Blood specimen 09/29/2017 12:03 8 (specimen) PM CDT 12:04 PM CDT Cameron Manjarrez APRN HUMAN CAPITAL CONSULTANT LAB - BLOOD ORDERABLES Performing Organization Address City/[facility]/ZIP Code Phon e Number [phone] [place] [address] [facility] INR (09/29/2017 12:03 PM CDT) P athologist Signature INR 1.02 0.86 - 1.14 09/29/2017 [facility] 12:28 PM CDT [facility] Specimen Anatomical Collection Method Collection Time Receive d Time (Source) Location / / Volume Laterality Blood specimen 09/29/2017 12:03 8 (specimen) PM CDT 12:04 PM CDT Cameron Manjarrez APRN, CNP LAB - BLOOD ORDERABLES Performing Organization Address City/[facility]/ZIP Code Phon e Number [phone] [place] [address] [facility] (ABNORMAL) CBC with platelets (09/29/2017 12:03 PM [...] CDT 12:04 PM CDT Cameron Manjarrez APRN HUMAN CAPITAL CONSULTANT LAB - BLOOD ORDERABLES Performing Organization Address City/State/ZIP Code Phon e Number [address] [address] [facility] Basic metabolic panel (09/29/2017 12:03 PM CDT) [...] 09/29/2017 [facility] mL/min/1.7 12:[address] Comment: Non GFR Calc GFR Estimate If >90 >60 mL/min/1.7m2 09/29/2017 12:40 PM [facility] OF Black CDT [facility] Comment: GFR Calc Calcium 8.8 8.5 - 10.1 mg/dL 09/29/2017 12:40 PM CDT [facility] Specimen Anatomical Collection Method Collection Time Receive d Time (Source) Location / / Volume Laterality Blood specimen 09/29/2017 12:03 8 (specimen) PM CDT 12:04 PM CDT Cameron Manjarrez APRN HUMAN CAPITAL CONSULTANT LAB - BLOOD ORDERABLES Performing Organization Address City/State/ZIP Code Phon e Number [address] [address] [facility] ABO/Rh type and screen (09/29/2017 12:03 PM CDT) [facility] gist Method Time Signature ABO O 09/29/2017 [facility] 1:31 PM CDT [facility] RH(D) Pos [facility] Antibody Neg 09/29/2017 [facility] Screen 1:31 PM CDT [facility] Test Valid [facility] 09/29/2017 [facility] 12:46 PM CDT [facility] Specimen 10/26/2017 10/23/2017 [facility] Expires 6:57 AM CDT [facility] Blood Bank Pre admission 09/29/2017 [facility] Comment form received 4:03 PM CDT [facility] 09/29/17 for [facility] 10/23/17. AA Specimen Anatomical Collection Method Collection Time Receive d Time (Source) Location / / Volume Laterality Blood specimen 09/29/2017 12:03 8 (specimen) PM CDT 12:04 PM CDT Cameron Cruzon SENIOR PAYROLL SPECIALIST HUMAN CAPITAL CONSULTANT LAB - BLOOD BANK TEST ORDER Performing Organization Address City/State/ZIP Code Phon e Number [facility] [address] [place] [address] [facility] [address] [place] [address] [facility] documented in this encounter Visit Diagnoses Diagnosis Preop general physical exam - Primary Other specified pre-operative examinatio n documented in this encounter Care Teams Mortgage Operations Manager Relationship Specialty Start Date End Date Keri Elias PCP - General Family Practice 03/12/15 9 MD Ira Glez David Wayne, MD Orthopedics 07/09/[address] [place] [address] [address] [id number] Astrid Rios PA-C Physician Biomedical Specialist Physician Biomedical Specialist - 07/09/14 Surgical documented as of this encounter
--- OUTSIDE RECORDS SUMMARY | 2021-12-22 08:41 | XMS_ITS | Encounter Summary ---
:1980 Author Organization [place] Address [address] [facility] [place] [address] Care Team Providers Name Role Phone Bebeto Roth MD Unavailable Astrid Rios PA-C Unavailable Keri Elias MD Primary Care Provider Unavailable Reason for Referral - Closed Specialty Diagnoses / Procedures Referred By Contact Refer red To Contact Diagnoses Adolescent idiopathic scoliosis of thoracolumbar region S/P spinal fusion Other kyphosis of thoracic region Bebeto Roth MD [address] [place], [place] [address] Referral ID Status Reason Start Date Expiration Date Visits Requ ested Visits Authorized [id number] Closed 06/29/2017 06/29/2018 1 1 Reason for Visit Reason Comments RECHECK follow up mid back fusion. d iscuss surgery. DOS 10-12-2009 PSF [id number] Encounter Details Date Type Department Care Team Description 06/29/2017 Office Visit [facility] Orthopaedic Bebeto Roth ent idiopathic scoliosis of thoracolumbar region (Primary Dx); Clinic MD Devan S/P spinal fusion; 9 [facility] SE [address] Other kyphosis of thoracic r egion 4th [address] [place] [address] [phone] Social History Tobacco Use Types Packs/Day Years [...] Keri Elias Ref. MD: Self Referred ?? Sanitary Napkin Machine Tender? No ?? 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 ?? Date of injury: None Type of [...] (willing/able to accept information): Yes Any cultural factors/moravian beliefs that may influence understanding or compliance? [...] Referral Routine Adolescent idiopathic Ordered: 06/29/2017 (For [facility] Only) scoliosis of thoracolumba r region S/P spinal fusio n Other kyphosis of thoracic region documented as of this encounter Visit Diagnoses Diagnosis Adolescent idiopathic scoliosis of thora columbar region - Primary Scoliosis (and kyphoscoliosis), idiopath ic S/P spinal fusion Arthrodesis status Other kyphosis of thoracic region documented in this encounter Care Teams Carpet Binder Relationship Specialty Start Date End Date Keri Elias PCP - General Family Practice 03/12/15 9 MD Ira Glez David Wayne, MD Orthopedics 07/09/[address] [place] [address] Astrid Rios PA-C Physician Flamer After Lasting Physician Flamer After Lasting - 07/09/14 Surgical documented as of this encounter
--- OUTSIDE RECORDS SUMMARY | 2021-12-22 08:42 | XMS_ITS | Encounter Summary ---
:1980 Author Organization [place] Address [address] [facility] [place] [address] Care Team Providers Name Role Phone Bebeto [...] glucose tolerance, antepartum; [address] test positive [place] [phone] Social History Tobacco Use Types Packs/Day Years [...] Aerobic Bacterial - Urinalysis, Micro If (UA) (Jeannette's) 3. Abnormal maternal glucose tolerance, antepartum Pt [...] with the final plan. Keri Elias MD Addendum: Called pt re results [...] Value Ref Test Analysis Performed At [facility] gist Range Method Time Signature Specimen Midstream Urine INFECTIOUS Description DISEASE DIAGNOSTIC LABORATORY Special Specimen 12/14/2016 [facility] received in 5:38 PM CDT [facility] preservative [facility] Culture Micro 50,000 to 100,000 [...] MICRO GENERAL ORDERABL ES Performing Organization Address City/[facility]/ZIP Code Phon e Number INFECTIOUS DISEASES [address] [place] [address] DIAGNOSTIC LABORATORY, [facility] INFECTIOUS DISEASE [address] [place] [address], [facility] DIAGNOSTIC LABORATORY [address] [address], [facility] Anti Treponema (12/14/2016 1:01 PM CDT) athologist Signature Treponema Negative NEG^Negati 12/15/2016 SHERIDAN pallidu ve 9:44 AM CDT CLINICS Antibody [place] Specimen Anatomical Collection Method Collection Time Receive d Time (Source) Location / / Volume Laterality Blood specimen VENOUS BLOOD / 12/14/2016 1:01 PM 12/14 1:06 (specimen) Unknown CDT PM CDT Keri Elias MD LAB - BLOOD ORDERABLES Performing Organization Address City/[facility]/ZIP Code Phon e Number [facility] [place] [address] [facility] [place] [address] 275 (ABNORMAL) Hemoglobin (HGB) (LabDAQ) (12/14/2016 9:32 AM CDT) athologist Signature Hemoglobin 9.3 (L) 11.7 - 15.7 [facility] g/dL MEDICINE [facility] Specimen (Source) Anatomical Collection Method Collection Time Re ceived Time Location / / Volume Laterality Blood specimen VENOUS BLOOD / 12/14/2016 9:32 AM (specimen) Unknown CDT Keri Elias MD LAB - LABDAQ Performing Organization Address City/[facility]/ZIP Code Phon e Number [facility] MEDICINE [address] [place], [place] [address] [facility] (ABNORMAL) Urinalysis, Micro If (UA) (Jeannette's) (12/14/2016 9:32 AM CDT) [facility] gist Method Time Signature Specific [place] 1.010 1.005 - SMILEYS Urine 1.030 FAMILY MEDICINE [facility] pH Urine 6.0 4.5 - 8.0 [facility] MEDICINE [facility] Leukocyte 3+ (A) NEGATIVE [facility] Esterase UR FAMILY MEDICINE [facility] Nitrite Urine Positive (A) NEGATIVE [facility] Protein UR 2+ (A) NEGATIVE [facility] Glucose Urine Trace (A) NEGATIVE [facility] Ketones Urine Trace (A) NEGATIVE [facility] Urobilinogen 2.0 E.U./dL 0.2 E.U./dL [facility] mg/dL (A) FAMILY MEDICINE [facility] Bilirubin UR 1+ (A) NEGATIVE [facility] Blood UR 2+ (A) NEGATIVE [facility] Specimen Anatomical Collection Method Collection Time Receive d Time (Source) Location / / Volume Laterality Urine specimen 12/14/2016 9:32 AM 017 9:32 (specimen) CDT AM CDT Keri Elias MD LAB - LABDAQ Performing Organization Address City/[facility] Code Phon e Number [facility] [address] [place] [phone] [facility] (ABNORMAL) Glucose Challenge 1 Hr (Jeannette's) (12/14/2016 9:32 AM CDT) P athologist Signature Glu Gest 165 (H) 0 - 129 [facility] FAMILY Screen 1hr 50g MEDICINE [facility] Specimen (Source) Anatomical Collection Method Collection Time Re ceived Time Location / / Volume Laterality Blood specimen VENOUS BLOOD / 12/14/2016 9:32 AM (specimen) Unknown CDT Keri Elias MD LAB - LABDAQ Performing Organization Address City/[facility] Phon e Number [facility] [address] [place] [phone] LAB[facility] documented in this encounter Visit Diagnoses Diagnosis Supervision of high risk , ante - Primary Dysuria Abnormal maternal glucose tolerance, ant epartum test positive examination or test, positive result documented in this encounter Care Teams Paver Layer Relationship Specialty Start Date End Date Keri Elias PCP - General Family Practice 03/12/15 9 MD Ira Glez, Bebeto Hartman MD Orthopedics 07/09/[address] [place] [address] [address] [place] [address] Astrid Rios PA-C Physician Cardiothoracic Surgeon Physician Cardiothoracic Surgeon - 07/09/14 Surgical documented as of this encounter
--- OUTSIDE RECORDS SUMMARY | 2021-12-22 08:42 | XMS_ITS | Encounter Summary ---
:1980 Author Organization [place] Address [address] [facility] [place] [address] Care Team Providers Name Role Phone Bebeto Roth MD Unavailable Astrid Rios PA-C Unavailable Keri Elias MD Primary Care Provider Unavailable Reason for Visit Reason Onset Date Comments Refill Request 10/03/2016 Ondansetron 4mg Encounter Details Date Type Department Care Team Description 10/03/2016 Refill [place] [facility] Jasmin Elias Refill Request Clinic MD [place] (Ondansetron 4mg) [address] [place] [address], [address] [place] [id number] Social History Tobacco Use Types Packs/Day Years Used Date Smoking Tobacco: Never Smokeless Tobacco: Never Alcohol Use Standard Drinks/Week Comments No 0 (1 standard drink = 0.6 oz pure alcoho l) Sex Assigned at Date Recorded Not on file documented as of this encounter Miscellaneous Notes Telephone Encounter - Kristina Stafford CMA - 10/03/2016 4:52 PM CDT Request for medication refill: Date of last visit at clinic: 09-08-16 Please complete refill if appropriate and CLOSE ENCOUNTER. Closing the encounter signifies the refill is complete. If refill has been denied, please complete the smart phrase .smirefuse and route it to the [facility]ARD[facility] KENNEL OR CATTERY OPERATOR pool to inform the patient and the pharmacy. Kristina Stafford documented in this encounter Plan of Treatment Not on filedocumented as of this encounter Visit Diagnoses Diagnosis Nausea Nausea alone documented in this encounter Care Teams Sales Representative Printing Paper Relationship Specialty Start Date End Date Keri Elias PCP - General Family Practice 03/12/15 9 MD Ira Glez David Wayne, MD Orthopedics 07/09/[address] [place] [id number] Astrid Rios PA-C Physician Fast Food Shift Lead Physician Fast Food Shift Lead - 07/09/14 Surgical documented as of this encounter
--- OUTSIDE RECORDS SUMMARY | 2021-12-22 08:42 | XMS_ITS | Encounter Summary ---
:1980 Author Organization [place] Address [address] [place] [address] Care Team Providers Name Role Phone Bebeto Roth MD Unavailable Astrid Rios PA-C Unavailable Keri Elias MD Primary Care Provider Unavailable Reason for Visit Reason Comments Care Encounter Details Date Type Department Care Team Description 02/21/2017 Office Visit Narda Mcleod Keri Elias of [facility] MD [place] risk , [address], antepar mauricio (Primary [address] Dx) [place], [place] [address] Social History Tobacco Use Types Packs/Day Years Used Date Smoking Tobacco: Never Smokeless Tobacco: Never Alcohol Use Standard Drinks/Week Comments No 0 (1 standard drink = 0.6 oz pure alcoho l) Sex Assigned at Date Recorded Not on file documented as of this encounter Last Filed Vital Signs Vital Sign Reading Time Taken Comments Blood Pressure 114/78 02/21/2017 7:51 AM BONDING MOLDER Pulse 93 02/21/2017 7:51 AM BONDING MOLDER Temperature 36.9 ??C (98.5 ??F) 02/21/2017 7:51 AM BONDING MOLDER Respiratory Rate 18 02/21/2017 7:51 AM BONDING MOLDER Oxygen Saturation 99% 02/21/2017 7:51 AM BONDING MOLDER Inhaled Oxygen Concentration - - Weight 80.3 kg (177 lb) 02/21/2017 7:51 AM BONDING MOLDER Height - - Body Mass Index 31.35 [...] with the final plan. Keri Elias MD ING MOLDER documented in this encounter Plan of Treatment Not on filedocumented as of this encounter Visit Diagnoses Diagnosis Supervision of high risk , ante - Primary documented in this encounter Care Teams Hotbed Operator Relationship Specialty Start Date End Date Keri Elias PCP - General Family Practice 03/12/15 9 MD Ira Glez David Wayne, MD Orthopedics 07/09/[address] [place] [address] Astrid Rios PA-C Physician Grouter Helper Physician Grouter Helper - 07/09/14 Surgical documented as of this encounter
--- OUTSIDE RECORDS SUMMARY | 2021-12-22 08:42 | XMS_ITS | Encounter Summary ---
:1980 Author Organization [place] Address [address] [facility] [place] [address] Care Team Providers Name Role Phone Bebeto Roth MD Unavailable Astrid Rios PA-C Unavailable Keri Elias MD Primary Care Provider Unavailable Reason for Visit Reason Onset Date Comments Appointment 10/14/2016 Encounter Details Date Type Department Care Team Description 10/14/2016 Telephone [facility] Medicine Jos Elias, Appointment Clinic [facility] [address], [address] [place], [place] [address] Social [...] filedocumented in this encounter Care Teams Senior Gis Analyst Relationship Specialty Start Date End Date Keri Elias PCP - General Family Practice 03/12/15 9 MD Ira Glez David Wayne, MD Orthopedics 07/09/[address] [place] [address] Astrid Rios PA-C Physician V Belt Mold Assembler And Curer Physician V Belt Mold Assembler And Curer - 07/09/14 Surgical documented as of this encounter
--- OUTSIDE RECORDS SUMMARY | 2021-12-22 08:42 | XMS_ITS | Encounter Summary ---
:1980 Author Organization [place] Address [facility] [place] [address] Care Team Providers Name Role Phone Bebeto [...] cy test positive (Primary Dx); Medicine Clinic FOLDER INSPECTOR RN RADIATION Dysuria; [address] [place] [address] [facility]; [address] [place] [address] [phone] (Wo rk) Social History Tobacco Use Types [...] allergies - fluticasone (FLONASE) 50 MCG/ACT spray; Mellott 1-2 sprays into both nostrils daily Dispense: 16 g; Refill: 3 5. test positive - HCG Qualitative Urine (UPT) ([facility]) Results for orders placed or performed in visit on 07/04/16 HCG Qualitative Urine (UPT) ([facility]) Result Value Ref Range HCG Qual Urine POSITIVE Negative Thank you for coming to [facility] today. Lab Testing: If you had lab testing today and your results are reassuring or normal they will be mailed to you or sent through [employer] within 7 days. If the lab tests need quick action we will call you with the results. The phone number we will call with results is # [phone] (home) . If this is not the best numberplease call our clinic and change the number. Medication Refills: If you need any refills please call your pharmacy and they will contact us. If you need to picker / packer your refill at a new pharmacy, please contact the new pharmacy directly. The new pharmacy will help you get your medications transferred faster. Scheduling: If you have any concerns about today's visit or wish to schedule another appointment please call ouroffice during normal business hours [phone] (8- 5:00 M-F) If a referral was made to a [facility] and you don't get a call from [facility] please call [phone]. If a Mammogram was ordered for you at [facility] call [phone] to schedule or change yourappointment. If you had an XRay/CT/Ultrasound/MRI ordered the number is [phone] to schedule or change your radiology appointment. Medical Concerns: If you have urgent medical concerns please call [phone] at any time of the day. If [...] allergies - fluticasone (FLONASE) 50 MCG/ACT spray; Mellott 1-2 sprays into both nostrils daily Options [...] Range Method Time Signature Specimen Midstream Urine [facility] Special Specimen received BULPITT O F Requests in preservative [facility] Culture Micro 10,000 to 50,000 colonies/mL Jia [...] Code Phon e Number INFECTIOUS DISEASES [address] [place] [address] DIAGNOSTIC LABORATORY, [place] [address] [place] [address] [address] [address], [facility] INFECTIOUS DISEASE [address] [place] [address], [facility]AGNO[facility]IC [facility]ORY HCG Qualitative Urine (UPT) ([facility]) (07/04/2016 4:24 PM CDT) athologist Signature HCG Qual Urine POSITIVE Negative [facility] Specimen Anatomical Collection Method Collection Time Receive d Time (Source) Location / / Volume Laterality Urine specimen 07/04/2016 4:24 PM 017 4:25 (specimen) CDT PM CDT Mylene Vieira FOLDER INSPECTOR RN RADIATION LAB - LAB[facility] Performing Organization Address City/State/ZIP Code Phon e Number [facility] [address] [place], [place] [address] LABDAQ documented in this encounter Visit Diagnoses Diagnosis test positive - Primary examination or test, positive result Dysuria Anxiety Anxiety state, unspecified Environmental allergies Allergic rhinitis, cause unspecified documented in this encounter Care Teams Sledger Relationship Specialty Start Date End Date Keri Elias PCP - General Family Practice 03/12/15 9 MD Ira Glez, Bebeto Hartman MD Orthopedics 07/09/14 [facility] [place] [address] Astrid Rios PA-C Physician Director Perioperative Physician Director Perioperative - 07/09/14 Surgical documented as of this encounter
--- OUTSIDE RECORDS SUMMARY | 2021-12-22 08:42 | XMS_ITS | Encounter Summary ---
:1980 Author Organization [place] Address [address] [facility] [address] Care Team Providers Name Role Phone Bebeto Roth MD Unavailable Astrid Rios PA-C Unavailable Keri Elias MD Primary Care Provider Unavailable Reason for Visit Reason Comments Orders Encounter Details Date Type Department Care Team Description 07/25/2016 Orders Only [facility] Orthopaedic Bebeto Roth is (Primary Dx); Clinic MD Devan S/P spinal fusion [address] [place] [id number] [facility] 4th Floor [address] [place] [id number] Social History Tobacco Use Types Packs/Day Years [...] status documented in this encounter Care Teams Waitstaff Captain Relationship Specialty Start Date End Date Keri Elias PCP - General Family Practice 03/12/15 9 MD Ira Glez David Wayne, MD Orthopedics 07/09/14 [facility] [place], [place] [address] Astrid Rios PA-C Physician Borematic Operator Physician Borematic Operator - 07/09/14 Surgical documented as of this encounter
--- OUTSIDE RECORDS SUMMARY | 2021-12-22 08:42 | XMS_ITS | Encounter Summary ---
:1980 Author Organization [place] Address [address] [facility] [place] [address] Care Team Providers Name Role Phone Bebeto Roth MD Unavailable Astrid Rios PA-C Unavailable Keri Elias MD Primary Care Provider Unavailable Reason for Visit Reason Comments Ultrasound Encounter Details Date Type Department Care Team Description 08/03/2016 Orders Only [place] Shruthi Bland Pregn tyler test Medicine Clinic A positive (Primary Dx) [address] [place] [address] [place] [phone] (Wo rk) Social History Tobacco Use [...] as needed. Patient:Azul Garg : PCP:Keri Elias Physician/Derrick Man: Shruthi Bland Indications: Dating LMP: Patient's last menstrual period was 06/01/2016. Technique: Transabdominal Machine: GE Logiq Pro 5 GESTATION & EMBRYO SURVEY: Location of :Intrauterine Cardiac activity: Present at 183 bpm Yolk Sac: Normal Rt Ovary : Unobserved Lt Ovary : Unobserved Measurements: CRL: 2.63 cm 9 wks 3d Shruthi Bland, [facility] RVT Attestation of Reviewer. I reviewed [...] as needed. Patient:Azul Garg : PCP:Keri Elias Physician/Derrick Man: Shruthi rojo Indications: Dating LMP: Patient's last [...] interpretation above. August Ontiveros MD Mylene Wilsonxl HOSPICE NURSE PRACTITIONER AUTOMATIC BRINE MIXER OPERATOR IMG US ORDERABLES documented in this encounter Visit Diagnoses Diagnosis test positive - Primary examination or test, positive result documented in this encounter Care Teams Research Associate Policy Relationship Specialty Start Date End Date Keri Elias PCP - General Family Practice 03/12/15 9 MD Ira Glez David Wayne, MD Orthopedics 07/09/[address] [place] [address] Astrid Rios PA-C Physician Employee Benefits Coordinator Physician Employee Benefits Coordinator - 07/09/14 Surgical documented as of this encounter
--- OUTSIDE RECORDS SUMMARY | 2021-12-22 08:42 | XMS_ITS | Encounter Summary ---
:1980 Author Organization [place] Address [address] [facility] [place] [address] Care Team Providers Name Role Phone Bebeto Roth MD Unavailable Astrid Rios PA-C Unavailable Clinic - [facility] Primary Care Provider + Reason for Visit Reason Onset Date Comments Refill Request 03/06/2015 minocycline (MINOCIN ,DYNACIN) 100 MG capsule Encounter Details Date Type Department Care Team Description 03/06/2015 Telephone [facility] Family Lisa Dewitt, Refill Re [facility] DO (minocycline [address] [place] [address], [facility] (MINOCIN,DYNACIN) [address] MG [address] capsule) [place], [place] [address] [place], [place] [phone] [address] Social History Tobacco Use Types Packs/Day Years [...] and hung up phone. Clarita Gunderson RN ON ATTENDANT Telephone Encounter - Joana Banerjee CMA - 03/06/2015 1:11 PM CST [facility] Family Medicine phone call message- patient requesting a refill: Full Medication Name: minocycline (MINOCIN,DYNACIN) 100 MG capsule 90 capsule 3 12/31/2013 -- Sig: Take 1 capsule (100 mg) by mouth daily Class: Fax Route: Oral Order: [id number] Dose: Pharmacy confirmed as [facility] [id number] [facility] AT [facility] & [address] [place] [phone] : Yes Additional Comments: OK to leave a message on voice mail? Yes Primary language: Tajik Special Trackwork Blacksmith needed? No Call taken on March 06, 2015 at 1:12 PM by Joana Banerjee ON ATTENDANT documented in this encounter Plan of Treatment Not on filedocumented as of this encounter Visit Diagnoses Not on filedocumented in this encounter Care Teams Home Health Care Coordinator Relationship Specialty Start Date End Date Clinic - Angela Laboy PCP - General 07/16/[address] [place] [address] [address] [place] [address] Bebeto Roth MD Orthopedics 07/09/14 [facility] [place] [address] Astrid Rios PA-C Physician Deadener Physician Deadener - 07/09/14 Surgical documented as of this encounter
--- OUTSIDE RECORDS SUMMARY | 2021-12-22 08:42 | XMS_ITS | Encounter Summary ---
:1980 Author Organization [place] Address [facility] [place] [address] Care Team Providers Name Role Phone Bebeto Roth MD Unavailable Astrid Rios PA-C Unavailable Keri Elias MD Primary Care Provider Unavailable Reason for Visit Reason Onset Date Comments Care f/u Erroneous encounter-disregard 01/27/2017 Encounter Details Date Type Department Care Team Description 01/27/2017 Office Visit Narda Mcleod Keri Elias Medicine Clinic MD [place] ENCOUNTER--DISREGARD [address], (Primar y Dx) [address] [place] [address] Social History Tobacco Use Types Packs/Day Years Used Date Smoking Tobacco: Never Smokeless Tobacco: Never Alcohol Use Standard Drinks/Week Comments No 0 (1 standard drink = 0.6 oz pure alcoho l) Sex Assigned at Date Recorded Not on file documented as of this encounter Last Filed Vital Signs Vital Sign Reading Time Taken Comments Blood Pressure 114/76 01/27/2017 2:15 PM LENS CEMENTER Pulse 99 01/27/2017 2:15 PM LENS CEMENTER Temperature 36.7 ??C (98 ??F) 01/27/2017 2:15 PM LENS CEMENTER Respiratory Rate - - Oxygen Saturation 100% 01/27/2017 2:15 PM LENS CEMENTER Inhaled Oxygen Concentration - - Weight 79.5 kg (175 lb 3.2 oz) 01/27/2017 2:15 PM LENS CEMENTER w / shoes Height - - Body Mass Index 31.04 08/05/2016 8:14 AM CDT documented in this encounter Progress Notes Tristan Pham CMA - 01/27/2017 2:57 PM CST This encounter was opened in error. Please disregard. CEMENTER documented in this encounter Plan of Treatment Not on filedocumented as of this encounter Visit Diagnoses Diagnosis ERRONEOUS ENCOUNTER--DISREGARD - Primary documented in this encounter Care Teams Hadoop Administrator Relationship Specialty Start Date End Date Keri Elias PCP - General Family Practice 03/12/15 9 MD Ira Glez David Wayne, MD Orthopedics 07/09/[address] [place] [address] Astrid Rios PA-C Physician Exhaust And Muffler Fitter Physician Exhaust And Muffler Fitter - 07/09/14 Surgical documented as of this encounter
--- OUTSIDE RECORDS SUMMARY | 2021-12-22 08:42 | XMS_ITS | Encounter Summary ---
:1980 Author Organization [place] Address [address] [place] [address] Care Team Providers Name Role Phone Bebeto Roth MD Unavailable Astrid Rios PA-C Unavailable Keri Elias MD Primary Care Provider Unavailable Reason for Visit Reason Comments Care ob care Refill Request erika Encounter Details Date Type Department Care Team Description 10/11/2016 Office Visit Melisa Sauceda c are, second trimester (Primary Dx); Medicine Clinic MD Lois Nausea; [address] [place] [address], [address] [place] [address] [address] [facility] [address] [place] [id number] [address] [place], [place] [phone] [id number] Social History Tobacco Use Types Packs/Day Years [...] one month Thank you for coming to [facility] today. Lab Testing: If you had lab testing today and your results are reassuring or normal they will be mailed to you or sent through [employer] within 7 days. If the lab tests need quick action we will call you with the results. The phone number we will call with results is # [phone] (home) . If this is not the best numberplease call our clinic and change the number. Medication Refills: If you need any refills please call your pharmacy and they will contact us. If you need to case picker your refill at a new pharmacy, please contact the new pharmacy directly. The new pharmacy will help you get your medications transferred faster. Scheduling: If you have any concerns about today's visit or wish to schedule another appointment please call ouroffice during normal business hours [phone] (8- 5:00 M-F) If a referral was made to a [facility] and you don't get a call from [facility] please call [phone]. If a Mammogram was ordered for you at [facility] call [phone] to schedule or change yourappointment. If you had an XRay/CT/Ultrasound/MRI ordered the number is [phone] to schedule or change your radiology appointment. Medical Concerns: If you have urgent medical concerns please call [phone] at any time of the day. documented [...] . The patient plans to deliver at [facility] with myself and/or OB partner. care at [facility]. - Patient will continue taking vitamins and [...] the final plan. Melisa Salvador MD PGY3 [facility] Resident Pager: [phone] Steffanie Parker MD - 10/11/2016 3:40 PM CDT Preceptor Attestation: Patient seen and discussed with the resident. Assessment and plan reviewed with resident and agreedupon. Supervising Physician: Steffanie Parker MD [facility] documented in this encounter Plan of Treatment Not on filedocumented as of this encounter Results US OB 14 +WKS SINGLE OR FIRST GESTATION (IN CLINIC) (10/19/2016) Anatomical Region Laterality Modality Abdomen/Pelvis Other Narrative 10/19/2016 2nd/3rd Trimester Ultrasound Report ?? CONCLUSIONS: US findings are consistent with LMP EGA by LMP 20w0d ??VINCENT by LMP :Faizan 24, 2 018 EGA by this U/S: 34zea0w (+/- 7days): ED D by this ??U/S: 03/07/17 ? EFW 345.95g, 0lb 12oz ??Weight Percentil e: 63.9%tile Follow up: Routine follow up as needed. PCP: Keri Elias Physician/Machine Rug Cleaner: Shruthi Ruelas iams Indications: Standard Exam and brittany vey LMP: Patient's last menstrual period was 06/01/2016. ?? FHR: 153 BPM ??Fluid: normal TJ: 10.83 Placenta Location: Posterior and Fundal number:1 ??Presentation: Cephalic Technique: Transabdominal Machine: Wangluotianxia Pro 5 SURVEY ? Cerebellum ? Intracranial [...] cm ?? 20wks 3d ?? Shruthi Bland [facility] RVT Attestation of Reviewer. I reviewed the images and agree with eliu singer interpretation above. August Ontiveros MD Steffanie Parker MD IMG US ORDERABLES documented in this encounter Visit Diagnoses Diagnosis care, second trimester - Primar y Nausea Nausea alone Vertigo Dizziness and giddiness care, second trimester documented in this encounter Care Teams Senior Government Program Analyst Relationship Specialty Start Date End Date Keri Elias PCP - General Family Practice 03/12/15 9 MD Ira Glez David Wayne, MD Orthopedics 07/09/[address] [facility] [place] [address] Astrid Rios PA-C Physician Grounds Person Physician Grounds Person - 07/09/14 Surgical documented as of this encounter
--- OUTSIDE RECORDS SUMMARY | 2021-12-22 08:42 | XMS_ITS | Encounter Summary ---
:1980 Author Organization [place] Address [facility] [place] [address] Care Team Providers Name Role Phone Bebeto Roth MD Unavailable Astrid Rios PA-C Unavailable Keri Elias MD Primary Care Provider Unavailable Encounter Details Date Type Department Care Team Description 07/27/2016 Radiant Appointment Health Imaging Bebeto Roth eled (Error) Center Una Hartman MD [address] [place] [id number] [place] [address] Social History Tobacco Use Types Packs/Day Years [...] on filedocumented in this encounter Care Teams Content Creation Manager Relationship Specialty Start Date End Date Keri Elias PCP - General Family Practice 03/12/15 9 MD Ira Glez David Wayne, MD Orthopedics 07/09/14 [facility] [place], [place] [address] Astrid Rios PA-C Physician Pediatrics Teacher Physician Pediatrics Teacher - 07/09/14 Surgical documented as of this encounter
--- OUTSIDE RECORDS SUMMARY | 2021-12-22 08:42 | XMS_ITS | Encounter Summary ---
:1980 Author Organization [place] Address [address] [facility] [place] [address] Care Team Providers Name Role Phone Bebeto Roth MD Unavailable Astrid Rios PA-C Unavailable Keri Elias MD Primary Care Provider Unavailable Reason for Visit Reason Comments Care Check to see if fetus is tur teddy correctly Encounter Details Date Type Department Care Team Description 02/14/2017 Office Visit Narda Mcleod Keri Elias of [facility] MD [place] risk , [address], antepar mauricio (Primary [address]x) [place], [place] [address] Social History Tobacco Use Types Packs/Day Years Used Date Smoking Tobacco: Never Smokeless Tobacco: Never Alcohol Use Standard Drinks/Week Comments No 0 (1 standard drink = 0.6 oz pure alcoho l) Sex Assigned at Date Recorded Not on file documented as of this encounter Last Filed Vital Signs Vital Sign Reading Time Taken Comments Blood Pressure 135/83 02/14/2017 8:05 AM DOPE AND FABRIC WORKER Pulse 109 02/14/2017 8:05 AM DOPE AND FABRIC WORKER Temperature 36.4 ??C (97.6 ??F) 02/14/2017 8:05 AM DOPE AND FABRIC WORKER Respiratory Rate - - Oxygen Saturation 100% 02/14/2017 8:05 AM DOPE AND FABRIC WORKER Inhaled Oxygen Concentration - - Weight 79.7 kg (175 lb 12.8 oz) 02/14/2017 8:05 AM DOPE AND FABRIC WORKER Height - - Body Mass Index 31.14 [...] with the final plan. Keri Elias MD AND FABRIC WORKER documented in this encounter Plan of Treatment Not on filedocumented as of this encounter Procedures Procedure Name Priority Date/Time Associated Diagnosis Comme nts GROUP B STREP PCR Routine 02/14/2017 1:07 PM Supervision of hi gh Results for this DOPE AND FABRIC WORKER risk , procedure ar e in antepartum the results section. documented in this encounter Results Group B strep PCR (GBS) (02/14/2017 1:07 PM DOPE AND FABRIC WORKER) [facility] Method Time Signature Group B Strep Vaginal 02/14/[address] [facility] PCR Spec Fahad Rectal 9:10 AM DOPE AND FABRIC WORKER [facility] Group B Strep Negative NEG^Negat 02/15/2017 [facility] franco 11:32 AM DOPE AND FABRIC WORKER [facility] Comment: No GBS DNA detected, presumed negative f or GBS or number of bacteria may be below the limit of detection of the assa y. Assay performed on incubated broth cultu re of specimen using [employer] real-time PCR. Specimen Anatomical Collection Method Collection Time Receive d Time (Source) Location / / Volume Laterality Vaginal Rectal 02/14/2017 1:07 PM 018 1:12 DOPE AND FABRIC WORKER PM DOPE AND FABRIC WORKER Keri Elias MD LAB - MICRO GENERAL ORDERABL ES Performing Organization Address City/State/ZIP Code Phon e Number [id number] [place] [address] East documented in this encounter Visit Diagnoses Diagnosis Supervision of high risk , ante - Primary documented in this encounter Care Teams Delphi Programmer Relationship Specialty Start Date End Date Keri Elias PCP - General Family Practice 03/12/15 MD Ira Abrams David Wayne, MD Orthopedics 07/09/[address] [place], [place] [id number] [place] [address] Astrid Rios PA-C Physician Neonatal Nurse Physician Neonatal Nurse - 07/09/14 Surgical documented as of this encounter
--- OUTSIDE RECORDS SUMMARY | 2021-12-22 08:42 | XMS_ITS | Encounter Summary ---
:1980 Author Organization [place] Address [address] [facility] [place] [address] Care Team Providers Name Role Phone Bebeto Roth MD Unavailable Astrid Rios PA-C Unavailable Keri Elias MD Primary Care Provider Unavailable Reason for Visit Reason Comments Ultrasound Encounter Details Date Type Department Care Team Description 10/19/2016 Orders Only [facility] Shruthi [facility] Medicine Clinic A trimester [address] [place] [address] [place] [id number] (Wo rk) Social History Tobacco Use [...] :Mar 08, 2017 EGA by this U/S: [id number] (+/- 7days): VINCENT by this U/S: 03/07/17 EFW 345.95g, 0lb 12oz Weight Percentile: 63.9%tile Follow up: Routine follow up as needed. PCP: Keri Elias Physician/Cloth Examiner: Shruthi Bland Indications: Standard Exam and survey LMP: Patient's last menstrual period was 06/01/2016. FHR: 153 BPM Fluid: normal TJ: 10.83 Placenta Location: Posterior and Fundal number:1 Presentation: Cephalic Technique: Transabdominal Machine: Snip2Code Pro 5 SURVEY Cerebellum Intracranial Anatomy Normal [...] 3.34 cm 20wks 3d Shruthi Bland, [facility] RVT Attestation of Reviewer. I reviewed [...] :Mar 08 018 EGA by this U/S: [id number] (+/- 7days): ED D by this ??U/S: 03/07/17 ? EFW 345.95g, 0lb 12oz ??Weight Percentil e: 63.9%tile Follow up: Routine follow up as needed. PCP: Keri Elias Physician/Cloth Examiner: Shruthi Ruelas iams Indications: Standard Exam and brittany vey LMP: Patient's last menstrual period was 06/01/2016. ?? FHR: 153 BPM ??Fluid: normal TJ: 10.83 Placenta Location: Posterior and Fundal number:1 ??Presentation: Cephalic Technique: Transabdominal Machine: Snip2Code Pro 5 SURVEY ? Cerebellum ? Intracranial [...] ?? 20wks 3d ?? Shruthi Bland [facility] RVT Attestation of Reviewer. I reviewed the images and agree with eliu singer interpretation above. August Ontiveros MD Steffanie Parker MD IMG US ORDERABLES documented in this encounter Visit Diagnoses Diagnosis care, second trimester documented in this encounter Care Teams Computer Programming Professor Relationship Specialty Start Date End Date Keri Elias PCP - General Family Practice 03/12/15 9 MD Ira Glez David [place], MD Orthopedics 07/09/14 [facility] [place] [address] Astrid Rios PA-C Physician Set Painter Physician Set Painter - 07/09/14 Surgical documented as of this encounter
--- OUTSIDE RECORDS SUMMARY | 2021-12-22 08:42 | XMS_ITS | Encounter Summary ---
:1980 Author Organization [place] Address [address] [facility] [place] [address] Care Team Providers Name Role Phone Bebeto Roth MD Unavailable Astrid Rios PA-C Unavailable Keri Elias MD Primary Care Provider Unavailable Reason for Visit Reason Onset Date Comments Refill Request 08/11/2016 ondansetron (ZOFRAN) 4 MG tablet Encounter Details Date Type Department Care Team Description 08/11/2016 Refill [facility] Jasmin Elias Refill Request Clinic MD [place] (ondansetron (ZOFRAN) [address] [facility] [address] [place], [place] [address] Social History Tobacco Use Types [...] phrase .smirefuse and route it to the [facility] FIN[facility] pool to inform the patient and the pharmacy. Kristina Stafford Telephone Encounter - Tala Velasco CMA - 08/11/2016 12:38 PM CDT [facility] phone call message- patient requesting a refill: Full Medication Name: ondansetron (ZOFRAN) 4 MG tablet Pharmacy confirmed as [id number] - [place], [place] - [address] [facility] [address] [facility] [phone] : Yes Additional Comments: None OK to leave a message on voice mail? Yes Primary language: Monegasque Forming Machine Operator needed? No Call taken on August 11, 2016 at 12:38 PM by Tala Velasco documented in this encounter Plan of Treatment Not on filedocumented as of this encounter Visit Diagnoses Diagnosis Nausea Nausea alone documented in this encounter Care Teams Food Prep Worker Relationship Specialty Start Date End Date Keri Elias PCP - General Family Practice 03/12/15 9 MD Ira Glez, Bebeto Hartman MD Orthopedics 07/09/[address] [place] [address] [address] [place] [address] Astrid Rios PA-C Physician Esol Teacher Assistant Physician Esol Teacher Assistant - 07/09/14 Surgical documented as of this encounter
--- OUTSIDE RECORDS SUMMARY | 2021-12-22 08:42 | XMS_ITS | Encounter Summary ---
:1980 Author Organization [place] Address [address] [facility] [place] [address] Care Team Providers Name Role Phone Bebeto Roth MD Unavailable Astrid Rios PA-C Unavailable Keri Elias MD Primary Care Provider Unavailable Reason for Visit Reason Onset Date Comments Call To Schedule Appointment 07/05/2016 NOB Appt Re quest Encounter Details Date Type Department Care Team Description 07/05/2016 Telephone [place] Keri Elias Call To Schedule Medicine Clinic MD [place] Appointment (NOB Appt [address], Request ) [address] [place], [place] [address] Social History Tobacco Use Types Packs/Day Years [...] on filedocumented in this encounter Care Teams Pharmaceutical Sales Specialist Relationship Specialty Start Date End Date Keri Elias PCP - General Family Practice 03/12/15 9 MD Ira Glez David [place], MD Orthopedics 07/09/14 [facility] [place] [id number] [place] [address] Astrid Rios PA-C Physician Workers Compensation Attorney Physician Workers Compensation Attorney - 07/09/14 Surgical documented as of this encounter
--- OUTSIDE RECORDS SUMMARY | 2021-12-22 08:42 | XMS_ITS | Encounter Summary ---
:1980 Author Organization [place] Address [facility] [place] [address] Care Team Providers Name Role Phone Bebeto Roth MD Unavailable Astrid Rios PA-C Unavailable Keri Elias MD Primary Care Provider Unavailable Reason for Visit Reason Comments Care BALA Encounter Details Date Type Department Care Team Description 01/10/2017 Office Visit [facility] Keri Elias for condition (Primary Dx); Medicine Clinic MD [place] Recurrent UTI [address] [place] [address], [address] [place], [place] [address] Social History Tobacco Use Types Packs/Day Years Used Date Smoking Tobacco: Never Smokeless Tobacco: Never Alcohol Use Standard Drinks/Week Comments No 0 (1 standard drink = 0.6 oz pure alcoho l) Sex Assigned at Date Recorded Not on file documented as of this encounter Last Filed Vital Signs Vital Sign Reading Time Taken Comments Blood Pressure 108/68 01/10/2017 10:06 AM GLASS BLOCK BENDER Pulse 114 01/10/2017 10:06 AM GLASS BLOCK BENDER Temperature 36.7 ??C (98.1 ??F) 01/10/2017 10:06 AM GLASS BLOCK BENDER Respiratory Rate 18 01/10/2017 10:06 AM GLASS BLOCK BENDER Oxygen Saturation 99% 01/10/2017 10:06 AM GLASS BLOCK BENDER Inhaled Oxygen Concentration - - Weight 78.8 kg (173 lb 12.8 oz) 01/10/2017 10:06 AM GLASS BLOCK BENDER Height - - Body Mass Index 30.79 [...] I have performed today. Keri Elias MD S BLOCK BENDER Jeannette Mayer - 01/10/2017 10:00 AM CST Return OB visit 29-34 weeks ?? Subjective: Azul is a 36 year old female at 31w6d with a history of frequent UTIs who returns for care. VINCENT Mar 08, 2017. - Concerns today: Pt complains of some round ligament and low back pain after travelling for [place]. Currently taking amoxicillin, no UTI or yeast [...] MS3, on behalf of Dr. Keri Elias. S BLOCK BENDER documented in this encounter Plan of Treatment Not on filedocumented as of this encounter Procedures Procedure Name Priority Date/Time Associated Diagnosis Comme nts HEMOGLOBIN A1C Routine 01/10/2017 11:51 AM Screening for Resul ts for this GLASS BLOCK BENDER condition procedure are i n the results section. URINE CULTURE Routine 01/10/2017 11:36 AM Recurrent UTI Result s for this GLASS BLOCK BENDER procedure are i n the results section. URINALYSIS([facility]) Routine 01/10/2017 10:19 AM Screening for R esults for this GLASS BLOCK BENDER condition procedure are i n the results section. documented in this encounter Results Hemoglobin A1c (01/10/2017 11:51 AM GLASS BLOCK BENDER) P athologist Signature Hemoglobin A1C 4.6 4.3 - 6.0 01/10/2017 [facility] 4:02 PM GLASS BLOCK BENDER [facility] Specimen Anatomical Collection Method Collection Time Receive d Time (Source) Location / / Volume Laterality Blood specimen 01/10/2017 11:51 7 1:05 (specimen) AM GLASS BLOCK BENDER PM GLASS BLOCK BENDER Keri Elias MD LAB - BLOOD ORDERABLES Performing Organization Address City/[facility] Phon e Number [facility] [address] [place], [place] [phone] [place] [address] Urine Culture Aerobic Bacterial (01/10/2017 11:36 AM GLASS BLOCK BENDER) Component Value Ref Test Analysis Performed At [facility] Range Method Time Signature Specimen Midstream Urine INFECTIOUS Description DISEASE DIAGNOSTIC LABORATORY Special Specimen received 01/10/2017 [facility] in preservative 5:40 PM GLASS BLOCK BENDER [facility] Culture Micro >100,000 colonies/mL 01/11/2017 INFE CTIOUS mixed urogenital teresa 5:40 PM GLASS BLOCK BENDER [facility] DIAGNOSTIC LABORATORY Culture Micro Susceptibility 01/11/2017 INFECTIOUS testing not 5:40 PM GLASS BLOCK BENDER DISEASE routinely done DIAGNOSTIC LABORATORY Specimen (Source) Anatomical Collection Method Collection Time Re ceived Time Location / / Volume Laterality Examination of 01/10/2017 11:36 7 1:04 midstream urine AM GLASS BLOCK BENDER PM GLASS BLOCK BENDER specimen (procedure) Keri Elias MD LAB - MICRO GENERAL ORDERABL ES Performing Organization Address [facility] Phon e Number INFECTIOUS DISEASES [address] [place] [address] DIAGNOSTIC LABORATORY, [facility] INFECTIOUS DISEASE [address] DIAGNOSTIC LABORATORY [address] (ABNORMAL) Urinalysis (UA) ([facility]) (01/10/2017 10:19 AM GLASS BLOCK BENDER) [facility] Method Time Signature Specific [place] 1.025 1.005 - [facility] Urine 1.030 [facility] pH Urine 6.5 4.5 - 8.0 [place] Leukocyte 1+ (A) NEGATIVE [place] Esterase UR [facility] Nitrite Urine Negative NEGATIVE [place] [facility] Protein UR 1+ (A) NEGATIVE [place] [facility] Glucose Urine Negative NEGATIVE [facility] Ketones Urine Trace (A) NEGATIVE [facility] Urobilinogen 0.2 E.U./dL 0.2 E.U./dL [place] mg/dL [facility] Bilirubin UR Negative NEGATIVE [facility] Blood UR 1+ (A) NEGATIVE [facility] Specimen Anatomical Collection Method Collection Time Receive d Time (Source) Location / / Volume Laterality Urine specimen 01/10/2017 10:19 7 (specimen) AM GLASS BLOCK BENDER 10:19 AM GLASS BLOCK BENDER Keri Elias MD LAB - LABDAQ Performing Organization Address City/State/ZIP Code Phon e Number [facility] 2019 [address], [place] [address] [facility] documented in this encounter Visit Diagnoses Diagnosis Screening for condition - Primary Screening for unspecified condition Recurrent UTI Urinary tract infection, site not specif ied documented in this encounter Care Teams Lead Java Software Engineer Relationship Specialty Start Date End Date Keri Elias PCP - General Family Practice 03/12/15 9 MD Ira Glez David [place], MD Orthopedics 07/09/[address] [place] [id number] Astrid Rios PA-C Physician Compressor Engineer Physician Compressor Engineer - 07/09/14 Surgical documented as of this encounter
--- OUTSIDE RECORDS SUMMARY | 2021-12-22 08:42 | XMS_ITS | Encounter Summary ---
:1980 Author Organization [place] Address [address] [facility] [place] [address] Care Team Providers Name Role Phone Bebeto Roth MD Unavailable Astrid Rios PA-C Unavailable Keri Elias MD Primary Care Provider Unavailable Reason for Visit Reason Comments Care BALA. NO concerns Encounter Details Date Type Department Care Team Description 02/28/2017 Office Visit [facility] Keri Elias of [facility] MD [place] risk , [address], antepar mauricio (Primary [address] Dx) [place], [place] [address] Social History Tobacco Use Types Packs/Day Years Used Date Smoking Tobacco: Never Smokeless Tobacco: Never Alcohol Use Standard Drinks/Week Comments No 0 (1 standard drink = 0.6 oz pure alcoho l) Sex Assigned at Date Recorded Not on file documented as of this encounter Last Filed Vital Signs Vital Sign Reading Time Taken Comments Blood Pressure 111/77 02/28/2017 7:54 AM ELECTRICIAN SECOND Pulse 96 02/28/2017 7:54 AM ELECTRICIAN SECOND Temperature 36.4 ??C (97.5 ??F) 02/28/2017 7:54 AM ELECTRICIAN SECOND Respiratory Rate 16 02/28/2017 7:54 AM ELECTRICIAN SECOND Oxygen Saturation 100% 02/28/2017 7:54 AM ELECTRICIAN SECOND Inhaled Oxygen Concentration - - Weight 79.9 kg (176 lb 3.2 oz) 02/28/2017 7:54 AM ELECTRICIAN SECOND Height - - Body Mass Index 31.21 [...] with the final plan. Keri Elias MD TRICIAN SECOND documented in this encounter Plan of Treatment Not on filedocumented as of this encounter Visit Diagnoses Diagnosis Supervision of high risk , ante - Primary documented in this encounter Care Teams Bicycle Messenger Relationship Specialty Start Date End Date Keri Elias PCP - General Family Practice 03/12/15 9 MD Ira Glez David [place], MD Orthopedics 07/09/[address] [place] [address] [place] [address] Astrid Rios PA-C Physician Paint Mixer Machine Physician Paint Mixer Machine - 07/09/14 Surgical documented as of this encounter
--- OUTSIDE RECORDS SUMMARY | 2021-12-22 08:42 | XMS_ITS | Encounter Summary ---
:1980 Author Organization [place] Address [address] [facility] [place] [address] Care Team Providers Name Role Phone Bebeto Roth MD Unavailable Astrid Rios PA-C Unavailable Keri Elias MD Primary Care Provider Unavailable Reason for Visit Reason Comments Derm Problem Over Rt Eye X 3 weeks Encounter Details Date Type Department Care Team Description 08/05/2015 Office Visit [facility] Santa Painter M D Dermatitis (Primary Dx); Medicine Clinic XXX RESIGNED XXX Anxiety; [address], [place], [place] Jovanni c attack; [address] [address] Encounter for medication refill [place], [place] [phone] Social History Tobacco Use Types Packs/Day Years [...] an antihistamine you can buy at drug [facility]. It can make you sleepy, so use [...] on the open blisters ?? Joint pain? [id number] The Room [address] [place] [address]. All rights reserved. This information is not [...] the final plan. Santa Painter MD G2 [facility] Senior Clinical Data Analyst Pager [phone] Payton Franks MD - 08/05/2015 4:19 PM CDT Preceptor Attestation: Patient seen and discussed with the resident. Assessment and plan reviewed with resident and agreedupon. Supervising Physician: Payton Franks MD [facility] documented in this encounter Plan of Treatment Not on filedocumented as of this encounter Visit Diagnoses Diagnosis Dermatitis - Primary Contact dermatitis and other eczema, due to unspecified cause Anxiety Anxiety state, unspecified Panic attack Panic disorder without agoraphobia Encounter for medication refill Issue of repeat prescriptions documented in this encounter Care Teams Floorperson Relationship Specialty Start Date End Date Keri Elias PCP - General Family Practice 03/12/15 9 MD Ira Glez David [place], MD Orthopedics 07/09/[address] [place] [id number] Astrid Rios PA-C Physician Fiber Optic Technician Physician Fiber Optic Technician - 07/09/14 Surgical documented as of this encounter
--- OUTSIDE RECORDS SUMMARY | 2021-12-22 08:42 | XMS_ITS | Encounter Summary ---
:1980 Author Organization [place] Address [facility] [place] [address] Care Team Providers Name Role Phone Bebeto Roth MD Unavailable Astrid Rios PA-C Unavailable Keri Elias MD Primary Care Provider Unavailable Reason for Visit Reason Comments Care Encounter Details Date Type Department Care Team Description 09/08/2016 Office Visit [facility] Keri Elias First t rimester ; Medicine Clinic MD [place] Nausea; [address] [place] [address], [facility] [address] [place] [phone] Social History Tobacco Use Types Packs/Day Years [...] giddiness documented in this encounter Care Teams Order Entry Administrator Relationship Specialty Start Date End Date Keri Elias PCP - General Family Practice 03/12/15 9 MD Ira Glez David [place], MD Orthopedics 07/09/[address] [place] [address] Astrid Rios PA-C Physician Home Economist Physician Home Economist - 07/09/14 Surgical documented as of this encounter
--- OUTSIDE RECORDS SUMMARY | 2021-12-22 08:42 | XMS_ITS | Encounter Summary ---
:1980 Author Organization [place] Address [address] [place] [address] Care Team Providers Name Role Phone Bebeto Roth MD Unavailable Astrid Rios PA-C Unavailable Keri Elias MD Primary Care Provider Unavailable Reason for Visit Reason Comments Care BALA Encounter Details Date Type Department Care Team Description 11/10/2016 Office Visit Narda Mcleod Melisa Hogan Supervisio n of [facility] MD [place] risk , [address] [place] [address], [address] [place] [address] [address] [place] [address] [place] [phone] [address] [place], [place] [phone] [address] Social History Tobacco Use Types Packs/Day Years [...] . 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 care at [facility]. - Patient will continue taking vitamins and [...] the final plan. Melisa Salvador MD PGY3 [facility] Resident Pager: [phone] Nicole Strickland MD - 11/10/2016 3:40 PM CDT Preceptor Attestation: Patient seen and discussed with the resident. Assessment and plan reviewed with resident and agreedupon. Supervising Physician: Nicole Strickland MD [facility] documented in this encounter Plan of Treatment Not on filedocumented as of this encounter Visit Diagnoses Diagnosis Supervision of high risk , ante documented in this encounter Care Teams Fire Suppression Captain Relationship Specialty Start Date End Date Keri Elias PCP - General Family Practice 03/12/15 9 MD Ira Glez David [place], MD Orthopedics 07/09/[address] [place] [address] Astrid Rios PA-C Physician Filling Operator Physician Filling Operator - 07/09/14 Surgical documented as of this encounter
--- OUTSIDE RECORDS SUMMARY | 2021-12-22 08:42 | XMS_ITS | Encounter Summary ---
:1980 Author Organization [place] Address [address] [facility] [place] [address] Care Team Providers Name Role Phone Bebeto [...] Street, Anxiety ; [address] Panic attack [place] [address] Social History Tobacco Use Types Packs/Day Years Used Date Smoking Tobacco: Never Smokeless Tobacco: Never Alcohol Use Standard Drinks/Week Comments No 0 (1 standard drink = 0.6 oz pure alcoho l) Sex Assigned at Date Recorded Not on file documented as of this encounter Last Filed Vital Signs Vital Sign Reading Time Taken Comments Blood Pressure 115/78 03/12/2015 10:03 AM CONSTRUCTION TECHNOLOGY INSTRUCTOR Pulse 109 03/12/2015 10:03 AM CONSTRUCTION TECHNOLOGY INSTRUCTOR Temperature 36.6 ??C (97.9 ??F) 03/12/2015 10:03 AM CONSTRUCTION TECHNOLOGY INSTRUCTOR Respiratory Rate - - Oxygen Saturation 99% 03/12/2015 10:03 AM CONSTRUCTION TECHNOLOGY INSTRUCTOR Inhaled Oxygen Concentration - - Weight 71.4 kg (157 lb 6.4 oz) 03/12/2015 10:03 AM CONSTRUCTION TECHNOLOGY INSTRUCTOR Height - - Body Mass Index 27.44 [...] length 25 minutes, all spent counseling directly [id number] about medications. TRUCTION TECHNOLOGY INSTRUCTOR documented in this encounter Plan of Treatment Not on filedocumented as of this encounter Visit Diagnoses Diagnosis Acne vulgaris - Primary Other acne Environmental allergies Allergic rhinitis, cause unspecified Anxiety Anxiety state, unspecified Panic attack Panic disorder without agoraphobia documented in this encounter Care Teams Civil Engineering Designer Relationship Specialty Start Date End Date Keri Elias PCP - General Family Practice 1/28/16 10/1/1 9 MD Ira Glez David [place], MD Orthopedics 07/09/[address] [place] [address] Astrid Rios PA-C Physician Manager Planning Physician Manager Planning - 07/09/14 Surgical documented as of this encounter
--- OUTSIDE RECORDS SUMMARY | 2021-12-22 08:42 | XMS_ITS | Encounter Summary ---
:1980 Author Organization [place] Address [address] [facility] [place] [address] Care Team Providers Name Role Phone Bebeto Roth MD Unavailable Astrid Rios PA-C Unavailable Keri Elias MD Primary Care Provider Unavailable Reason for Visit Reason Comments Care BALA Refill Request Flonase Encounter Details Date Type Department Care Team Description 12/28/2016 Office Visit Narda Mcleod [place], Vaginal itch ing (Primary Dx); Medicine Clinic Keri Glez MD Environmental allergies; [address] [place] [address] Social History Tobacco Use Types Packs/Day Years Used Date Smoking Tobacco: Never Smokeless Tobacco: Never Alcohol Use Standard Drinks/Week Comments No 0 (1 standard drink = 0.6 oz pure alcoho l) Sex Assigned at Date Recorded Not on file documented as of this encounter Last Filed Vital Signs Vital Sign Reading Time Taken Comments Blood Pressure 117/79 12/28/2016 8:13 AM GYPSUM CALCINER Pulse 106 12/28/2016 8:13 AM GYPSUM CALCINER Temperature 36.9 ??C (98.5 ??F) 12/28/2016 8:13 AM GYPSUM CALCINER Respiratory Rate 20 12/28/2016 8:13 AM GYPSUM CALCINER Oxygen Saturation 98% 12/28/2016 8:13 AM GYPSUM CALCINER Inhaled Oxygen Concentration - - Weight 79.2 kg (174 lb 9.6 oz) 12/28/2016 8:13 AM GYPSUM CALCINER Height - - Body Mass Index 30.93 [...] Refilled - fluticasone (FLONASE) 50 MCG/ACT spray; [place] 1-2 sprays into both nostrils daily Dispense: [...] with the final plan. Keri Elias MD [facility] CALCINER documented in this encounter Plan of Treatment Not on filedocumented as of this encounter Visit Diagnoses Diagnosis Vaginal itching - Primary Pruritus of genital organs Environmental allergies Allergic rhinitis, cause unspecified Frequent UTI Urinary tract infection, site not specif ied documented in this encounter Care Teams Homicide Detective Relationship Specialty Start Date End Date Keri Elias PCP - General Family Practice 03/12/15 9 MD Ira Glez David [place], MD Orthopedics 07/09/14 [facility] [address] [place] [address] Astrid Rios PA-C Physician Marina Porter Physician Marina Porter - 07/09/14 Surgical documented as of this encounter
--- OUTSIDE RECORDS SUMMARY | 2021-12-22 08:42 | XMS_ITS | Encounter Summary ---
:1980 Author Organization [place] Address [facility] [place] [address] Care Team Providers Name Role Phone Bebeto Roth MD Unavailable Astrid Rios PA-C Unavailable Keri Elias MD Primary Care Provider Unavailable Reason for Visit Reason Onset Date Comments Refill Request 03/17/2016 Encounter Details Date Type Department Care Team Description [facility] Ref[facility] Request Clinic [address] [place] [address], [address] [place], [place] [address] Social History Tobacco Use Types [...] phrase .smirefuse and route it to the [facility] DIFFUSION FURNACE OPERATOR pool to inform the patient and the pharmacy. Clementina Curtis CMA DEPARTMENT MANAGER documented in this encounter Plan of Treatment Not on filedocumented as of this encounter Visit Diagnoses Diagnosis Acne vulgaris - Primary Other acne documented in this encounter Care Teams Sugar Refinery Supervisor Relationship Specialty Start Date End Date Keri Elias PCP - General Family Practice 03/12/15 9 MD Ira Glez David Wayne, MD Orthopedics 07/09/14 [id number] [place] [address] Astrid Rios PA-C Physician Dormitory Counselor Physician Dormitory Counselor - 07/09/14 Surgical documented as of this encounter
--- OUTSIDE RECORDS SUMMARY | 2021-12-22 08:42 | XMS_ITS | Encounter Summary ---
:1980 Author Organization [place] Address [address] [facility] [place] [address] Care Team Providers Name Role Phone Bebeto Roth MD Unavailable Astrid Rios PA-C Unavailable Keri Elias MD Primary Care Provider Unavailable Reason for Visit Reason Onset Date Comments Refill Request 10/03/2016 Meclizine 12.5mg Encounter Details Date Type Department Care Team Description 10/03/2016 Refill [facility] Jasmin Elias Refill Request Clinic MD [place] (Meclizine 12.5mg) [address], [address] [place], [place] [address] Social History Tobacco Use Types Packs/Day Years [...] phrase .smirefuse and route it to the [facility] SUPERINTENDENT pool to inform the patient and the pharmacy. Kristina Stafford documented in this encounter Plan of Treatment Not on filedocumented as of this encounter Visit Diagnoses Diagnosis Vertigo Dizziness and giddiness documented in this encounter Care Teams Information Developer Relationship Specialty Start Date End Date Keri Elias PCP - General Family Practice 03/12/15 9 MD Ira Glez David Wayne, MD Orthopedics 07/09/[address] [place] [address] Astrid Rios PA-C Physician Stretcher Helper Physician Stretcher Helper - 07/09/14 Surgical documented as of this encounter
--- OUTSIDE RECORDS SUMMARY | 2021-12-22 08:42 | XMS_ITS | Encounter Summary ---
:1980 Author Organization [place] Address [address] [facility] [address] Care Team Providers Name Role Phone Bebeto Roth MD Unavailable Astrid Rios PA-C Unavailable Keri Elias MD Primary Care Provider Unavailable Encounter Details Date Type Department Care Team Description 12/16/2016 [facility]phone [facility] [address] [place] [address], [address] [place], [place] [address] Social History Tobacco Use Types [...] on filedocumented in this encounter Care Teams Pipelayer Relationship Specialty Start Date End Date Keri Elias PCP - General Family Practice 03/12/15 9 MD Ira Glez David Wayne, MD Orthopedics 07/09/[address] [place] [address] Astrid Rios PA-C Physician Reinforcing Steel Worker Wire Mesh Physician Reinforcing Steel Worker Wire Mesh - 07/09/14 Surgical documented as of this encounter
--- OUTSIDE RECORDS SUMMARY | 2021-12-22 08:42 | XMS_ITS | Encounter Summary ---
:1980 Author Organization [place] Address [address] [facility] [place] [address] Care Team Providers Name Role Phone Bebeto Roth MD Unavailable Astrid Rios PA-C Unavailable Keri Elias MD Primary Care Provider Unavailable Reason for Visit Reason Comments Care NOB Encounter Details Date Type Department Care Team Description 08/05/2016 Office Visit [facility] Keri Elias Vertigo (Primary Dx); Medicine Clinic MD [place] test positive; [address], [facility] ; [address] Encounter for supervision of normal first in first trimester; [place], [place] [address] High-risk , first t select specialty hospital [phone] Social History Tobacco Use Types Packs/Day Years [...] PM CDT Thank you for coming to [facility]! - If you had lab testing [...] your referral is for P please call [phone] --If your referral is to outside [facility] please call the clinic number ([phone]) and ask for your team continuum of care manager. - If you need any refills please call your pharmacy and they will contact us. - If you have any concerns about today's visit or wish to schedule another appointment please call our office [phone] (8-5:00 M-F) - If you have urgent medical concerns call [phone] at any time of the day. - If you have a medical emergency please call [phone]. Because you are , we have additional resources for you: - You may call Martha Barfield, our OB coordinator at [phone] during normal business hours, for non-urgent questions about your . - Immediate OB help is also available 24 hours a day, seven days a week via the [facility] at [phone]. Reminders: Before 14 weeks: dating ultrasound This [...] or baby. Again, thank you for choosing [facility]. Please let us know how we can best partner with you to improve your and your family's health. Thank you for coming to [facility]! - If you had lab testing today [...] following numbers --f your referral is for [facility] please call [phone] --If your referral is to outside [facility] please call the clinic number ([phone]) and ask for your team continuum of care manager. - If you need any refills please call your pharmacy and they will contact us. - If you have any concerns about today's visit or wish to schedule another appointment please call our office [phone] (8-5:00 M-F) - If you have urgent medical concerns call [phone] at any time of the day. - If you have a medical emergency please call [phone]. Because you are , we have additional resources for you: - You may call Martha Barfield, our OB coordinator at [phone] during normal business hours, for non-urgent questions about your . - Immediate OB help is also available 24 hours a day, seven days a week via the [place] [facility] at [phone]. Reminders: Before 14 weeks: dating ultrasound This [...] baby. Again, thank you for choosing [facility]. Please let us know how we [...] No Down's syndrome No Lucas-Sach's disease No Hesston's chorea No Any other inherited genetic or [...] 0 ??? fluticasone (FLONASE) 50 MCG/ACT spray Spencer 1-2 sprays into both nostrils daily 16 [...] with the patient and/or guardian. Azul Alejo Iram Smart and/or guardian engaged in the decision [...] type and screen (08/05/2016 2:21 PM CDT) [facility] gist Method Time Signature ABO O [facility] RH(D) Pos [facility] Antibody Neg [facility]ITY [facility] Test Valid [facility] [place],[facility] Hospital Specimen 08/08/2016 [facility] Specimen Anatomical Collection Method Collection Time Receive d Time (Source) Location / / Volume Laterality Blood specimen VENOUS BLOOD / 08/05/2016 2:21 PM 08/05 2:26 (specimen) Unknown CDT PM CDT Keri Elias MD LAB - BLOOD BANK TEST ORDER Performing Organization Address City/State/ZIP Code Phon e Number [facility] [address] [place], [place] [id number] [place] [address] Varicella Zoster Virus Antibody IgG (08/05/2016 11:55 AM CDT) P athologist Signature Varicella 0.4 0.0 - 0.8 [facility]ITY Zoster Virus AI [place] [facility] Antibody IgG [facility] Comment: Negative, suggests no immunologic exposu re. [...] Organization Address City/State/ZIP Code Phon e Number [address] Rubella Antibody IgG Quantitative (08/05/2016 11:55 AM CDT) Analysis Performed At Patho logist Time Signature Rubella Antibody 24 IU/mL UNIVERSITY OF IgG Quantitative [facility] Comment: Positive. ??Suggests previous exposure o r [...] Address City/[facility]/ZIP Code Phon e Number [address] HIV Antigen Antibody Combo (08/05/2016 11:55 AM CDT) Patholo gist Method Time Signature HIV Antigen Nonreactive NR [facility] OF [facility] HIV-1 p24 Ag & HIV-1/HIV-2 Ab Not Detected [facility] Combo [facility] Specimen Anatomical Collection Method Collection Time Receive d Time (Source) Location / / Volume Laterality Blood specimen VENOUS BLOOD / 08/05/2016 11:55 017 (specimen) Unknown AM CDT 12:00 PM CDT Keri Elias MD LAB - BLOOD ORDERABLES Performing Organization Address City/State/ZIP Code Phon e Number [facility] [address] Anti Treponema (08/05/2016 11:55 AM CDT) Analysis Performed At Patho logist Time Signature Treponema Negative NEG [facility]ITY OF pallidum [facility] Antibody [facility] Specimen Anatomical Collection Method Collection Time Receive d Time (Source) Location / / Volume Laterality Blood specimen VENOUS BLOOD / 08/05/2016 11:55 017 (specimen) Unknown AM CDT 12:00 PM CDT Keri Elias MD LAB - BLOOD ORDERABLES Performing Organization Address City/[facility]/ZIP Code Phon e Number [facility] [address] (ABNORMAL) Hepatitis B Surface Antibody (08/05/2016 11:55 AM CDT) [facility] Method Time Signature Hepatitis B 378.74 (H) <8.00 UN[facility]ITY OF Surface m[IU]/mL [facility] Comment: Reactive, Patient is considered [...] Address City/[facility]/ZIP Code Phon e Number [address] Hepatitis B surface antigen (08/05/2016 11:55 AM CDT) [facility] Method Time Signature Hep B Surface Nonreactive NR [facility]ITY [facility] Specimen Anatomical Collection Method Collection Time Receive d Time (Source) Location / / Volume Laterality Blood specimen VENOUS BLOOD / 08/05/2016 11:55 017 (specimen) Unknown AM CDT 12:00 PM CDT Keri Elias MD LAB - BLOOD ORDERABLES Performing Organization Address City/State/ZIP Code Phon e Number [facility] [address] HPV High Risk Types DNA Cervical (08/05/2016 9:36 AM CDT) Component Value Ref Test Analysis Performed At [facility] Method Time Signature HPV 16 DNA Negative NEG [facility] HPV 18 DNA Negative NEG [facility] Other HR HPV Negative NEG [facility] Final This patient's sample is negative for HPV DNA. [facility]ITY Diagnosis (Note) OF [place] METHODOLOGY: ??The Jeff mile 4800 system uses [...] and its performance characteristics determined by the [facility]. It has not been cleared or approved by the FDA. The laboratory is regulated under CLIA as qualified to perform high-complexity testing. This test is used for clinical purp oses. It should not be regarded as investigational or for research. Specimen Cervical Cells UN[facility]ERSITY Description C17 [id number] OF [facility] Specimen Anatomical Collection Method Collection Time Receive d Time (Source) Location / / Volume Laterality Cervical Cells 08/05/2016 9:36 AM 017 CDT 12:04 PM CDT Keri Elias MD LAB - BLOOD ORDERABLES Performing Organization Address City/State/ZIP Code Phon e Number [facility] [address] [place], [place] [phone] [place] [address] Pap imaged thin layer screen with HPV - recommended age 30 - 65 years (select HPV order below) (08/05/2016 9:36 AM CDT) Component Value Ref Test Analysis Performed At [facility] Range Method Time Signature PAP NIL VICKEYATH Hector Report COPATH Acc#: [id number] ?? Signed: 08/09/2016 13:30 ?? MR#: [id number] SPECIMEN/STAIN PROCESS: Pap imaged thin layer [...] rcinomas or other cancers. TESTING LAB LOCATION: ??[facility], [facility], [address] [place] [phone], Processed and screened at [facility] nt, [facility] Specimen Anatomical Collection Method Collection Time Receive d Time (Source) Location / / Volume Laterality Cervical Cells 08/05/2016 9:36 AM 017 9:15 CDT AM CDT Keri Elias MD LAB - OPTIME CLINICAL SPECIM EN Performing Organization Address City/State/ZIP Code Phon e Number COPATH Chlamydia trachomatis PCR (08/05/2016 9:34 AM CDT) Component Value Ref Test Analysis Performed At [facility] gist Range Method Time Signature Specimen Cervical [facility] Chlamydia Negative NEG [facility] OF [facility] Negative for C. trachomatis rRNA by character actress mediated amplification. [place] [facility] PCR A negative result by transc ription mediated amplification does not preclude the [facility] presence of C. trachomatis infection because re [...] Organization Address City/State/ZIP Code Phon e Number [id number] [place] [address] [facility] [place] Neisseria gonorrhoeae PCR (08/05/2016 9:34 AM CDT) Component Value Ref Test Analysis Performed At Patholo gist Range Method Time Signature Specimen Cervical [facility] N Gonorrhea Negative NEG UNIVERSITY PCR Negative for N. gonorrhoeae rRNA by transcripti on mediated amplification. [facility] A negative result by transc ription mediated amplification does not preclude the [facility] presence of N. gonorrhoeae infection because re [...] Organization Address City/State/ZIP Code Phon e Number [id number] [place] [address] (ABNORMAL) Hemoglobin (HGB) ([facility]) (08/05/2016 9:09 AM CDT) P athologist Signature Hemoglobin 17.8 (H) 11.7 - 15.7 [facility] g/dL MEDICINE LAB[facility] Specimen Anatomical Collection Method Collection Time Receive d Time (Source) Location / / Volume Laterality Blood specimen VENOUS BLOOD / 08/05/2016 9:09 AM 08/05 9:09 (specimen) Unknown CDT AM CDT Keri Elias MD LAB - LABDAQ Performing Organization Address City/State/ZIP Code Phon e Number [place] [phone] [facility] documented in this encounter Visit Diagnoses Diagnosis Vertigo - Primary Dizziness and giddiness test positive examination or test, positive result First trimester Encounter for supervision of normal firs t in first trimester Supervision of normal first High-risk , first trimester documented in this encounter Care Teams Pipelaying Fitter Relationship Specialty Start Date End Date Keri Elias PCP - General Family Practice 03/12/15 9 MD Ira Glez, Bebeto Hartman MD Orthopedics 07/09/14 [address] [facility] [address] [address] [place] [address] Astrid Rios PA-C Physician Bath Solution Maker Physician Bath Solution Maker - 07/09/14 Surgical documented as of this encounter
--- OUTSIDE RECORDS SUMMARY | 2021-12-22 08:42 | XMS_ITS | Encounter Summary ---
:1980 Author Organization [place] Address [address] [place] [address]. [place] [address] Care Team Providers Name Role Phone Bebeto Roth MD Unavailable Astrid Rios PA-C Unavailable Keri Elias MD Primary Care Provider Unavailable Reason for Visit Reason Comments Rule Out Labor Auth/Cert Specialty Diagnoses / Procedures Referred By Contact Refer red To Contact Obstetrics Diagnoses Maternity*VINCENT 03/08/2017/Labor Encounter for triage in patient Labor and delivery, indication for care (normal spontaneous vaginal delivery) [address] [phone] Phone: Referral ID Status Reason Start Date Expiration Date Visits Requ ested Visits Authorized [id number] 1 1 Encounter Details Date Type Department Care Team Description 03/05/2017 Hospital Encounter [facility] Keri Elias Frequent UTI Birthplace MD [place] [address] [place] [address] Social History Tobacco Use Types Packs/Day Years Used Date Smoking Tobacco: Never Smokeless Tobacco: Never Alcohol Use Standard Drinks/Week Comments No 0 (1 standard drink = 0.6 oz pure alcoho l) Sex Assigned at Date Recorded Not on file documented as of this encounter Last Filed Vital Signs Vital Sign Reading Time Taken Comments Blood Pressure 121/75 03/05/2017 9:15 AM SILK FINISHER Pulse 107 03/05/2017 9:15 AM SILK FINISHER Temperature 37.2 ??C (99 ??F) 03/05/2017 9:15 AM SILK FINISHER Respiratory Rate 16 03/05/2017 9:15 AM SILK FINISHER Oxygen Saturation - - Inhaled Oxygen Concentration - - Weight 79.9 kg (176 lb 3.2 oz) 03/05/2017 9:15 AM SILK FINISHER Height - - Body Mass Index 31.21 [...] felt your baby move all day. ?? [phone] [employer]. [address] [place] [address]. All rights reserved. This information is not intended as a substitute for professional medical care. Always follow your healthcare professional's instructions. This information has been modified by your health care provider with permission from the publisher. FINISHER documented in this encounter Medications at Time [...] Abnormal maternal glucose tolerance, antepartum fluticasone (FLONASE) Palm 1-2 sprays into 16 g 3 07/05/2017 [...] Shreya. Outpatient w no procedure - Charge. FINISHER Rivka Cantu RN - 03/05/2017 9:52 AM [...] Olson to SVE and review tracing. VSS. FINISHER documented in this encounter H&P Notes Keri Elias MD - 03/05/2017 9:30 AM CST Images from the original note were not included. [facility] Ob Admit /Triage Note Azul Tellez Age: [age] year old Date of : 1980 Date of Admission: 03/05/2017 9:30 AM Date of service: 03/05/2017. History of Present Illness (Resident / Clinician): Azul Tellez is a patient of Keri Lyon and Dr. Melisa Maher from [facility]. She is a 36 year old who [...] Negative Negative for C. trachomatis rRNA by dope mixer mediated amplification. A negative result by dope mixer mediated amplification does not preclude the presence of C. trachomatis infection because results are dependent on proper and adequate collection, absence of inhibitors, and sufficient rRNA to be detected. [facility] 08/05/2016 Negative Negative for N. gonorrhoeae rRNA by dope mixer mediated amplification. A negative result by dope mixer mediated amplification does not preclude the presence [...] to Encounter: fluticasone (FLONASE) 50 MCG/ACT spray Palm 1-2 sprays into both nostrils daily amoxicillin [...] she wishes. DO Kenia Rowanlaila Family Medicine [facility] Attestation: This patient has been seen and evaluated by me, Keri Elias on 03/05/2017. I saw and discussed the case with the primary resident the care team. I agree with the findings and plan in this note. I have reviewed today's vital signs, medications, laboratory results. [facility] FINISHER documented in this encounter Plan of Treatment Not on filedocumented as of this encounter Visit Diagnoses Diagnosis Frequent UTI Urinary tract infection, site not specif ied Encounter for triage in patient documented in this encounter Care Teams Restorative Coordinator Relationship Specialty Start Date End Date Keri lEias PCP - General Family Practice 03/12/15 9 MD Ira Glez David Wayne, MD Orthopedics 07/09/[address] [place] [address] Astrid Rios PA-C Physician Radio Adjuster Physician Radio Adjuster - 07/09/14 Surgical documented as of this encounter
--- OUTSIDE RECORDS SUMMARY | 2021-12-22 08:42 | XMS_ITS | Encounter Summary ---
:1980 Author Organization [place] Address [address] [facility] [place] [address] Care Team Providers Name Role Phone Bebeto Roth MD Unavailable Astrid Rios PA-C Unavailable Keri Elias MD Primary Care Provider Unavailable Reason for Visit Reason Onset Date Comments Refill Request 07/08/2016 Kirsten Encounter Details Date Type Department Care Team Description 07/08/2016 Refill [facility] Family Medicine Jasmin Elias Refill Request (Kirsten) Clinic MD [place] [facility] [address] [place] [address], [address] [place], [place] [address] Social History Tobacco Use Types [...] phrase .smirefuse and route it to the [facility] SUPPLY CHAIN DEVELOPMENT MANAGER pool to inform the patient and the pharmacy. Clementina Curtis CMA Telephone Encounter - Nuzhat Hong 07/08/2016 4:05 PM CDT [facility] Family Medicine phone call message- patient requesting a refill: Full Medication Name: ondansetron (ZOFRAN) tablet 4 mg Pharmacy confirmed as [id number] - [place] - [address] AT [facility] [address] [place] [phone] : Yes Additional Comments: Patient was unable [...] message on voice mail? Yes Primary language: Yemeni Building Coordinator needed? No Call taken on July 08, 2016 at 4:05 PM by Nuzhat Hong documented in this encounter Plan of Treatment Not on filedocumented as of this encounter Visit Diagnoses Diagnosis Nausea - Primary Nausea alone documented in this encounter Care Teams Websphere Process Server Developer Relationship Specialty Start Date End Date Keri Elias PCP - General Family Practice 03/12/15 9 MD Ira Glez David Wayne, MD Orthopedics 07/09/[address] [facility] [address] [facility] [address] [place] [address] Astrid Rios PA-C Physician Automatic Dispenser Mechanic Physician Automatic Dispenser Mechanic - 07/09/14 Surgical documented as of this encounter
--- OUTSIDE RECORDS SUMMARY | 2021-12-22 08:42 | XMS_ITS | Encounter Summary ---
:1980 Author Organization [place] Address [address] [facility] [place] [address] Care Team Providers Name Role Phone Bebeto Roth MD Unavailable Astrid Rios PA-C Unavailable [facility] Primary Care Provider + Reason for Visit [facility] (Routine) - Closed Specialty Diagnoses / Procedures Referred By Contact Refer red To Contact Bebeto Roth MD ZZ [facility] MAN[facility]ULA [facility] [address] [place] [address] [address] [place], [place] [address] [address] [place] [phone] Phone: Fax: Referral ID Status Reason Start Date Expiration Date Visits Requ ested Visits Authorized NYA/HP/LBP Closed 08/04/2014 02/12/2015 20 18 Encounter Details Date Type Department Care Team Description 08/04/2014 Therapy Visit [place] for Evan Alejandra, Pain in thoracic spine (Primary Dx); Athletic Medicine - PT Other orthopedic aftercare(V54.89); Manjula Costa [facility] MANJULA COSTA Scoliosis PhysicalTherapy [address] [place] [address] [id number] [place] [phone] Social History Tobacco Use Types Packs/Day [...] 100% Right: 50% Rotation: Left: Right: Side [place]: Left: Right: Strength: sore strength = 4/5, [...] Sheet for this information) Short term and snf goals: (See Goal Flow Sheet for this [...] Name Priority Date/Time Associated Diagnosis Comme nts [facility] NEUROMUSCULAR Routine 08/07/2014 12:10 PM Pain in thoracic RE-EDUCATION CDT spine Other orthopedic aftercare(V54.89 ) Scoliosis [facility] THERAPEUTIC EXERCISES Routine 08/07/2014 12:10 PM Pain in thoracic CDT spine Other orthopedic aftercare(V54.89 ) Scoliosis documented in this encounter Visit Diagnoses Diagnosis Pain in thoracic spine - Primary Other orthopedic aftercare(V54.89) Other orthopedic aftercare Scoliosis Scoliosis (and kyphoscoliosis), idiopath ic documented in this encounter Care Teams Environmental Aid Relationship Specialty Start Date End Date Clinic - Angela Laboy PCP - General 07/16/[address] [place] [address] 2019 [place], [place] [phone] Bebeto Roth MD Orthopedics 07/09/14 [facility] [place], [place] [address] [place] [address] Astrid Rios PA-C Physician Linux Unix System Administrator Physician Linux Unix System Administrator - 07/09/14 Surgical documented as of this encounter
--- OUTSIDE RECORDS SUMMARY | 2021-12-22 08:43 | XMS_ITS | Encounter Summary ---
:1980 Author Organization [place] Address [address] [facility] [place] [address] Care Team Providers Name Role Phone Caitlin Ballesteros MD Primary Care Provider Reason for Visit Reason Comments Consult Ear issues and Dizziness Encounter Details Date Type Department Care Team Description 07/02/2013 Office Visit Ear, Nose and Throat Gael Deshpande MD Nasal congestion (Primary Dx); Clinic ENT CLINIC AND Dysfunction of eustachian tu be, bilateral 8th Floor, Clinic 8A HEARING CTR [facility] [address] [address] [facility] [phone] [place], [place] (Work) [address] [phone] Social History Tobacco Use Types Packs/Day Years [...] the clinic sooner with questions or concerns: [phone]. documented in this encounter Progress Notes Michael Deshpande MD - 07/02/2013 2:01 PM CDT Dear Caitlin Alexandra: I had the pleasure of meeting Azul Garg in consultation today at the [facility] at your request. HISTORY OF [...] intake form (for the remainder of the [facility]) which I reviewedand signed. Past Medical History [...] l documented in this encounter Care Teams Wood Crew Supervisor Relationship Specialty Start Date End Date Caitlin Ballesteros MD PCP - General 10/08/11 08/11/13 documented as of this encounter
--- OUTSIDE RECORDS SUMMARY | 2021-12-22 08:43 | XMS_ITS | Encounter Summary ---
:1980 Author Organization [place] Address [address] [facility] [place] [address] Care Team Providers Name Role Phone Marshalucy Lisa Primary Care Provider Encounter Details Date Type Department Care Team Description 01/29/2014 Radiant Appointment [facility] Astrid Rios, Scoliosis [facility]NDI [facility] 1ST FLOOR, CLINIC [address] [place] [phone] Social History Tobacco Use Types Packs/Day Years [...] Resu lts for this SCOLIOSIS 2 VIEWS ENDORSEMENT CLERK procedure are in the results section. documented in this encounter Results XR Spine Complete 2 vw (01/29/2014 8:26 AM ENDORSEMENT CLERK) Anatomical Region Laterality Modality Spine Computed Radiography Specimen (Source) Anatomical Location Collection Method / Collectio n Time Received Time / Laterality Volume Impressions 01/29/2014 8:54 AM ENDORSEMENT CLERK IMPRESSION: 1. Redemonstration of mild dextroscolios is in the lower thoracic spine, with intact instrumentation follo wing posterior instrumented fusion from T10-L3. BABS MONTES MD Narrative 01/29/2014 8:54 AM ENDORSEMENT CLERK EXAMINATION: Spine 2 views DATE: 01/29/2014 HISTORY: [...] T10-L3. BABS MONTES MD Astrid Rios PA-C [facility] DIAGNOSTIC IMAGING ORDER TAYLOR documented in this encounter Visit Diagnoses Diagnosis Scoliosis Scoliosis (and kyphoscoliosis), idiopath ic documented in this encounter Care Teams Movie Shot Cameraman Relationship Specialty Start Date End Date Lisa Dewitt DO PCP - General 08/12/13 07/15/14 [facility] 2019 [place] [address] documented as of this encounter
--- OUTSIDE RECORDS SUMMARY | 2021-12-22 08:43 | XMS_ITS | Encounter Summary ---
:1980 Author Organization [place] Address [address] [facility] [place] [address] Care Team Providers Name Role Phone Lisa Dewitt DO Primary Care Provider Reason for Visit Reason Onset Date Comments Refill Request 09/17/2013 Encounter Details Date Type Department Care Team Description 09/17/[address] [facility] Lisa Dewitt DO Refill Request Clinic [place] [address] [place] [address], [address] [place] [id number] [place] [address] [phone] Social History Tobacco Use Types Packs/Day Years [...] acne documented in this encounter Care Teams Pyrometallurgical Engineer Relationship Specialty Start Date End Date Lisa Dewitt DO PCP - General 08/12/13 07/15/14 [facility] 2019 [place] [address] documented as of this encounter
--- OUTSIDE RECORDS SUMMARY | 2021-12-22 08:43 | XMS_ITS | Encounter Summary ---
:1980 Author Organization [place] Address [facility] [place] [address] Care Team Providers Name Role Phone Lisa Dewitt DO Primary Care Provider Reason for Referral [facility] - Closed Specialty Diagnoses / Procedures Referred By Contact Refer red To Contact Diagnoses Scoliosis/kyphoscoliosis Bebeto Roth MD [facility] [address] [place], [place] [address] Referral ID Status Reason Start Date Expiration Date Visits Requ ested Visits Authorized [id number] Closed 06/05/2014 12/02/2014 1 1 Reason for Visit Reason Comments Surgical Followup s/p spinal fusion 09/3009, pt . states she is noticing some curve changes Encounter Details Date Type Department Care Team Description 06/05/2014 Office Visit Orthopaedic Clinic Bebeto Roth Scoliosis/kyphoscolio [facility] MD Devan sis (Primary Dx) Center [address] 1st Floor, [address] [phone] Social History Tobacco Use Types Packs/Day Years [...] inside of the realm of a small exchange specialist the past 4 years. However, without progressive pain and neurologic symptoms, which Azul does not currently have, the change is not overly concerning. PHYSICAL EXAMINATION: Her strength is 5/5 in bilateral lower extremities with intact sensation. Reflexes are 2+ patellar and Achilles. Gait is normal. Tandem gait is normal. ASSESSMENT: Auzl is a 33-year-old female who is 4-1/2 [...] screw loosening or pull out. PLAN: Dr. 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 Date of injury: none Date of surgery: [...] Name Type Priority Associated Diagnoses Order S [facility] PHYSICAL THERAPY Referral Routine Scoliosis/kyphoscoliosis Expected: 06/05/2014, REFERRAL Expires: 2015 (External-Prints) documented as of this encounter Visit Diagnoses Diagnosis Scoliosis/kyphoscoliosis - Primary Scoliosis (and kyphoscoliosis), idiopath ic documented in this encounter Care Teams Grinder Set Up Operator Relationship Specialty Start Date End Date Lisa Dewitt DO PCP - General 08/12/13 07/15/14 [facility] 2019 [place] [address] documented as of this encounter
--- OUTSIDE RECORDS SUMMARY | 2021-12-22 08:43 | XMS_ITS | Encounter Summary ---
:1980 Author Organization [place] Address [facility] [place] [address] Care Team Providers Name Role Phone Caitlin Ballesteros MD Primary Care Provider Reason for Visit Reason Comments Results follow up Encounter Details Date Type Department Care Team Description 12/24/2012 Office Visit [facility] Josiah Johnson Anxiety (Primary Dx) Medicine Clinic [address] [address] 2019 [place] [address] Social History Tobacco Use Types [...] Comments Blood Pressure 128/85 12/24/2012 1:33 PM AGRICULTURAL REAL ESTATE AGENT Pulse 107 12/24/2012 1:33 PM AGRICULTURAL REAL ESTATE AGENT Temperature 36.8 ??C (98.2 ??F) 12/24/2012 1:33 PM AGRICULTURAL REAL ESTATE AGENT Respiratory Rate - - Oxygen Saturation 100% 12/24/2012 1:33 PM AGRICULTURAL REAL ESTATE AGENT Inhaled Oxygen Concentration - - Weight 72.9 kg (160 lb 12.8 oz) 12/24/2012 1:33 PM AGRICULTURAL REAL ESTATE AGENT Height 160.8 cm (5' 3.3) 12/24/2012 1:33 PM AGRICULTURAL REAL ESTATE AGENT Body Mass Index 28.22 12/24/2012 1:33 PM AGRICULTURAL REAL ESTATE AGENT documented in this encounter Patient Instructions Patient InstructionsQuJosiah soto, MD - 12/24/2012 1:59 PM CST Thank you for coming to [facility]. Lab Testing: If you had lab testing today and your results are reassuring or normal they will be mailed to you or sent through [employer] within 7 days. If the lab tests need quick action we will call you with the results. The phone number we will call with results is # [phone] (home) . If this is not the best numberplease call our clinic and change the number. Medication Refills: If you need any refills please call your pharmacy and they will contact us. If you need to picker and packer your refill at a new pharmacy, please contact the new pharmacy directly. The new pharmacy will help you get your medications transferred faster. Scheduling: If you have any concerns about today's visit or wish to schedule another appointment please call ouroffice during normal business hours [phone] (8- 5:00 M-F) Medical Concerns: If you have urgent medical concerns please call [phone] at any time of the day. If you have a medical emergency please call 911. Again thank you for choosing [facility] and please let us know how we can best partner with you to improve you and your family's health. CULTURAL REAL ESTATE AGENT documented in this encounter Progress Notes Josiah [...] Pt was very anxious about her testing. [place] anxiety and shakiness in her class. Denies any other mood changes. Patient Active Problem List Diagnosis ??? Adolescent idiopathic scoliosis ??? Health Shelter ??? Acne vulgaris ??? Anxiety ??? Congenital [...] fluticasone (FLONASE) 50 MCG/ACT nasal spray Active [place] 1-2 sprays into both nostrils daily ??? benzoyl peroxide 5 % gel Active Use over the areas everyday 1-2 times/daily. Please use it alongwith other ointment. ??? fluticasone (FLONASE) 50 MCG/ACT nasal spray Active [place] 2 sprays into both nostrils daily. Allergies [...] Final Value:Negative for N. gonorrhoeae rRNA by top polisher mediated amplification. A negative result by top polisher mediated amplification does not preclude the presence of N. gonorrhoeae infection because results are dependent on proper and adequate collection, absence of inhibitors, and sufficient rRNA to be detected. ??? Specimen Description 12/16/2012 Cervix Final ??? Chlamydia Trachomatis PCR 12/16/2012 Final Value:Negative for C. trachomatis rRNA by top polisher mediated amplification. A negative result by top polisher mediated amplification does not preclude the presence [...] 12/16/2012 Negative NEG mg/dL Final ??? Specific [place] Urine 12/16/2012 1.023 1.003 - 1.035 Final [...] having anxiety related to her HSV testing. SHAHNAZ 7 scored 5. - hydrOXYzine (ATARAX) 25 MG tablet; Take 1-2 tablets (25-50 mg) by mouth every 6 hours as needed for itching Dispense: 30 tablet; Refill: 1 Return to follow up symptoms of anxiety gets worst. pt feels better after knowing result. Her anxiety seems situational, not starting her on halfway treatment like SSRI. 2. Herpes Type 1 [...] with the final plan. Josiah Johnson MD CULTURAL REAL ESTATE AGENT Jazz Duncan MD - 12/24/2012 1:41 PM CST Preceptor Attestation: Patient's case reviewed and discussed with resident and I examined the patient. I agree with writtenassessment and plan of care Supervising Physician: Jazz Duncan MD MD [facility] Medicine CULTURAL REAL ESTATE AGENT documented in this encounter Plan of Treatment Not on filedocumented as of this encounter Visit Diagnoses Diagnosis Anxiety - Primary Anxiety state, unspecified documented in this encounter Care Teams Rag Shredder Relationship Specialty Start Date End Date Caitlin Ballesteros MD PCP - General 10/08/11 08/11/13 documented as of this encounter
--- OUTSIDE RECORDS SUMMARY | 2021-12-22 08:43 | XMS_ITS | Encounter Summary ---
:1980 Author Organization [place] Address [address] [place] [address] Care Team Providers Name Role Phone Caitlin Ballesteros MD Primary Care Provider Reason for Visit Reason Comments Neck Pain patient could not move neck to the left after waking up today. History of TMJ. Encounter Details Date Type Department Care Team Description 02/28/2013 Office Visit [facility] Caitlin Ballesteros MD Neck muscle spasm Medicine Clinic [facility] (Primary Dx) [address], PRACTICE [address] [place] [address] [place] [phone] (Wo rk) Social History Tobacco Use Types [...] Comments Blood Pressure 122/81 02/28/2013 3:00 PM MORTICIAN INVESTIGATOR Pulse 94 02/28/2013 3:00 PM MORTICIAN INVESTIGATOR Temperature 36.8 ??C (98.2 ??F) 02/28/2013 3:00 PM MORTICIAN INVESTIGATOR Respiratory Rate - - Oxygen Saturation 100% 02/28/2013 3:00 PM MORTICIAN INVESTIGATOR Inhaled Oxygen Concentration - - Weight 70.3 kg (155 lb) 02/28/2013 3:00 PM MORTICIAN INVESTIGATOR Height 158.8 cm (5' 2.5) 02/28/2013 3:00 PM MORTICIAN INVESTIGATOR Body Mass Index 27.9 02/28/2013 3:00 PM MORTICIAN INVESTIGATOR documented in this encounter Patient Instructions Patient InstructionsCaitlin Ballesteros MD - 02/28/2013 3:33 PM CST Thank you for coming to [facility]. If you had lab testing today and your results are reassuring or normal they will be be mailed to you or sent to your MyChart and you will be notified by email within 7 days. If the lab tests need quick action we will call you with the results. The phone number we will call with results is # [phone] (home) (home) . If this is not the best number please call our clinic and change the number. If any referrals were ordered today you should be getting a call in the next week. If you don't hear about this within a week please call one of the following numbers If your referral is for P please call [phone] If your referral is to outside [facility] please call the clinic number ([phone]) and ask for your team pediatric critical care nurse. If you need any refills please call your pharmacy and they will contact us. If you have any concerns about today's visit or wish to schedule another appointment please call ouroffice during normal business hours [phone] (8- 5:00 M-F) If you have urgent medical concerns please call [phone] at any time of the day. If you have a medical emergency please call [phone] Again thank you for choosing [facility] and please let us know how we can best partner with youto improve your and your family's health. ICIAN INVESTIGATOR documented in this encounter Progress Notes Joseph Pittman MD - 02/28/2013 5:28 PM CST Preceptor Attestation: Patient seen and discussed with the resident. Assessment and plan reviewed with resident and agreedupon. Supervising Physician: Joseph Pittman MD [facility] Medicine ICIAN INVESTIGATOR Caitlin Ballesteros MD - 02/28/2013 3:15 PM [...] Diagnosis ??? Adolescent idiopathic scoliosis ??? Health [facility] ??? Acne vulgaris ??? Anxiety ??? Congenital [...] ??? fluticasone (FLONASE) 50 MCG/ACT nasal spray [place] 1-2 sprays into both nostrils daily ??? [...] with the final plan. Caitlin Ballesteros MD. ICIAN INVESTIGATOR documented in this encounter Plan of Treatment Not on filedocumented as of this encounter Visit Diagnoses Diagnosis Neck muscle spasm - Primary Spasm of muscle documented in this encounter Care Teams Finance Vice President Relationship Specialty Start Date End Date Caitlin Ballesteros MD PCP - General 10/08/11 08/11/13 documented as of this encounter
--- OUTSIDE RECORDS SUMMARY | 2021-12-22 08:43 | XMS_ITS | Encounter Summary ---
:1982 Author Organization [place] Address [address] [facility] [address] Care Team Providers Name Role Phone Caitlin Ballesteros MD Primary Care Provider Encounter Details Date Type Department Care Team Description 07/02/2013 Orders Only Ear, Nose and Throat Gael Deshpande MD Dizziness (Primary Dx); Clinic ENT CLINIC AND Ear pressure, right 8th Floor, Clinic 8A HEARING CTR [facility] [address] [address] [facility] 88 [place], [place] (Work) [address] [phone] Social History Tobacco Use Types Packs/Day Years [...] right documented in this encounter Care Teams Bookie Relationship Specialty Start Date End Date Caitlin Ballesteros MD PCP - General 10/08/11 08/11/13 documented as of this encounter
--- OUTSIDE RECORDS SUMMARY | 2021-12-22 08:43 | XMS_ITS | Encounter Summary ---
:1980 Author Organization [place] Address [facility] [place] [address] Care Team Providers Name Role Phone Lisa Dewitt DO Primary Care Provider Reason for Visit Reason Onset Date Comments Medication Question 01/21/2014 Encounter Details Date Type Department Care Team Description 01/21/2014 Telephone [employer] Lisa Dewitt DO Medication Question Clinic [address] [address] [phone] (Wo rk) Social History Tobacco Use Types [...] per protocol. Patient notified. Bunny Patino RN PLANT OPERATOR Telephone Encounter - Hillary Brumfield - 01/21/2014 9:46 AM CST [facility] Family Medicine phone call message- medication [...] each of her children. Pharmacy confirmed as [facility] [address] [place], [place] - [address] AT [address]: Yes OK to leave a message on voice mail? Yes Primary language: Mal[place]ian Glue Jointer Feeder needed? No Call taken on January 21, 2014 at 9:47 AM by Hillary Brumfield PLANT OPERATOR documented in this encounter Plan of Treatment Not on filedocumented as of this encounter Visit Diagnoses Diagnosis Head lice Pediculus capitis (head louse) documented in this encounter Care Teams Emergency Nurse Relationship Specialty Start Date End Date Lisa Dewitt DO PCP - General 08/12/13 07/15/14 [facility] 2019 [place] [address] documented as of this encounter
--- OUTSIDE RECORDS SUMMARY | 2021-12-22 08:43 | XMS_ITS | Encounter Summary ---
:1982 Author Organization [place] Address [facility] [place] [address] Care Team Providers Name Role Phone Lisa Dewitt DO Primary Care Provider Reason for Visit Reason Onset Date Comments Other 01/28/2014 scoliosis FU Encounter Details Date Type Department Care Team Description 01/28/2014 Telephone Orthopaedic Clinic Bebeto Roth (scoliosis FU) [facility] MD [facility] [address] [place] [address] Floor, [address] [facility] [address] [address]45 [phone] Social History Tobacco Use Types Packs/Day Years [...] will see Astrid snyder tomorrow for eval. FLARING MACHINE OPERATOR documented in this encounter Plan of Treatment Not on filedocumented as of this encounter Visit Diagnoses Not on filedocumented in this encounter Care Teams Rubber Grinder Relationship Specialty Start Date End Date Lisa Dewitt DO PCP - General 08/12/13 07/15/14 [facility] 2019 [place] [address] documented as of this encounter
--- OUTSIDE RECORDS SUMMARY | 2021-12-22 08:43 | XMS_ITS | Encounter Summary ---
:1980 Author Organization [place] Address [address] [place] [address] Care Team Providers Name Role Phone Caitlin Ballesteros MD Primary Care Provider Reason for Visit Reason Onset Date Comments Head Lice 08/05/2013 Two youngest childre n have lice Encounter Details Date Type Department Care Team Description 08/05/2013 Telephone [facility] Caitlin Ballesteros MD Head Lice ([facility] Medicine Clinic [facility] youngest children have [address], PRACTICE lice ) [address] [facility] [place], [place] [address] [place] [address] (Wo rk) Social History Tobacco [...] CDT Message forward to Dr Alvarez and [place] message sent. Madison Nobles LPN Informed mom [...] louse) documented in this encounter Care Teams Systems Security Analyst Relationship Specialty Start Date End Date Caitlin Ballesteros MD PCP - General 10/08/11 08/11/13 documented as of this encounter
--- OUTSIDE RECORDS SUMMARY | 2021-12-22 08:43 | XMS_ITS | Encounter Summary ---
:1980 Author Organization [place] Address Count includes the [facility]0 [facility] [place] [address] Care Team Providers Name Role Phone Meeta Dewittanda Primary Care Provider Reason for Visit Reason Comments Orders Encounter Details Date Type Department Care Team Description 06/04/2014 Orders Only Orthopaedic Clinic Bebeto Roth Scoliosis (Primary Dx); [facility] MD [facility] spinal fusion Center [address] [place] [address] 1st Floor, [address] [place] [phone] Social History Tobacco Use Types Packs/Day Years [...] the cervicothoracic junction lying approximately 6 cm steam shovel oiler ior to the lumbosacral junction. Stable mild [...] the cervicothoracic junction lying approximately 6 cm steam shovel oiler ior to the lumbosacral junction. Stable mild [...] status documented in this encounter Care Teams Post Hole Digger Relationship Specialty Start Date End Date Lisa Dewitt DO PCP - General 08/12/13 07/15/14 [facility] 2019 [place] [address] documented as of this encounter
--- OUTSIDE RECORDS SUMMARY | 2021-12-22 08:43 | XMS_ITS | Encounter Summary ---
:1980 Author Organization [place] Address [address] [facility] [place] [address] Care Team Providers Name Role Phone Renate Lisa Primary Care Provider Reason for Visit Reason Comments Orders Encounter Details Date Type Department Care Team Description 01/28/2014 Orders Only [facility] Astrid Rios, Damon (Primary [facility] PA-C Dx) [facility] 1st Floor, [address] [place] [address], [phone] [place] [id number] Social History Tobacco Use Types Packs/Day Years [...] Spine Complete 2 vw (01/29/2014 8:26 AM TOOL PROFILING MACHINE SET UP OPERATOR) Anatomical Region Laterality Modality Spine Computed Radiography Specimen (Source) Anatomical Location Collection Method / Collectio n Time Received Time / Laterality Volume Impressions 01/29/2014 8:54 AM TOOL PROFILING MACHINE SET UP OPERATOR IMPRESSION: 1. Redemonstration of mild dextroscolios is in the lower thoracic spine, with intact instrumentation follo wing posterior instrumented fusion from T10-L3. BABS MONTES MD Narrative 01/29/2014 8:54 AM TOOL PROFILING MACHINE SET UP OPERATOR EXAMINATION: Spine 2 views DATE: 01/29/2014 HISTORY: [...] ic documented in this encounter Care Teams Can Cutter Relationship Specialty Start Date End Date Lisa Dewitt DO PCP - General 08/12/13 07/15/14 [facility] [address] [place] [address] documented as of this encounter
--- OUTSIDE RECORDS SUMMARY | 2021-12-22 08:43 | XMS_ITS | Encounter Summary ---
:1980 Author Organization [place] Address [facility]ly [facility] [place] [address] Care Team Providers Name Role Phone Meeta Dewittanda Primary Care Provider Encounter Details Date Type Department Care Team Description 06/05/2014 Radiant Appointment [facility] Bebeto Roth Scoliosis; CYNDI MICHELLE Hartman MD S/P spinal fusion [place] [id number] [place] [address] FLOOR, CLINIC 1 [address] 6 [facility] [address] [place], [place] [phone] (Work) [phone] Social History Tobacco Use Types Packs/Day Years [...] the cervicothoracic junction lying approximately 6 cm ui designer ior to the lumbosacral junction. Stable mild [...] the cervicothoracic junction lying approximately 6 cm ui designer ior to the lumbosacral junction. Stable mild [...] status documented in this encounter Care Teams Rehabilitation Manager Relationship Specialty Start Date End Date Lisa Dewitt DO PCP - General 08/12/13 07/15/14 [facility] 2019 [place] [address] documented as of this encounter
--- OUTSIDE RECORDS SUMMARY | 2021-12-22 08:43 | XMS_ITS | Encounter Summary ---
:1980 Author Organization [place] Address [address] [facility] [place] [address] Care Team Providers Name Role Phone Caitlin Ballesteros MD Primary Care Provider Reason for Visit Reason Comments Diarrhea since Monday/ per pt- happ en after workout Syncope during working out Chills Encounter Details Date Type Department Care Team Description 04/04/2013 Office Visit [facility] Caitlin Ballesteros MD Contraception (Primary Medicine Clinic [facility]) [address], PRACTICE [address] [place] [address] [place] [phone] (Wo rk) Social History Tobacco Use Types [...] Comments Blood Pressure 117/79 04/04/2013 1:37 PM REGIONAL REFRIGERATED CDL TRUCK DRIVER Pulse 93 04/04/2013 1:37 PM REGIONAL REFRIGERATED CDL TRUCK DRIVER Temperature 36.4 ??C (97.6 ??F) 04/04/2013 1:37 PM REGIONAL REFRIGERATED CDL TRUCK DRIVER Respiratory Rate - - Oxygen Saturation 100% 04/04/2013 1:37 PM REGIONAL REFRIGERATED CDL TRUCK DRIVER Inhaled Oxygen Concentration - - Weight 70.1 kg (154 lb 9.6 oz) 04/04/2013 1:37 PM REGIONAL REFRIGERATED CDL TRUCK DRIVER Height 158.8 cm (5' 2.5) 04/04/2013 1:37 PM REGIONAL REFRIGERATED CDL TRUCK DRIVER Body Mass Index 27.83 04/04/2013 1:37 PM REGIONAL REFRIGERATED CDL TRUCK DRIVER documented in this encounter Progress Notes Caitlin [...] Diagnosis ??? Adolescent idiopathic scoliosis ??? Health Correction ??? Acne vulgaris ??? Anxiety ??? Congenital [...] ??? fluticasone (FLONASE) 50 MCG/ACT nasal spray [place] 1-2 sprays into both nostrils daily ??? [...] I have performed today. Caitlin Ballesteros MD. ONAL REFRIGERATED CDL TRUCK DRIVER Joseph Pittman MD - 04/04/2013 4:35 PM CST Preceptor Attestation: Patient seen and discussed with the resident. Assessment and plan reviewed with resident and agreedupon. Supervising Physician: Joseph Pittman MD [facility] ONAL REFRIGERATED CDL TRUCK DRIVER documented in this encounter Plan of Treatment Not on filedocumented as of this encounter Visit Diagnoses Diagnosis Contraception - Primary Unspecified contraceptive management documented in this encounter Care Teams Electric Organ Checker Relationship Specialty Start Date End Date Caitlin Ballesteros MD PCP - General 10/08/11 08/11/13 documented as of this encounter
--- OUTSIDE RECORDS SUMMARY | 2021-12-22 08:43 | XMS_ITS | Encounter Summary ---
:1980 Author Organization [place] Address [address] [facility] [place] [address] Care Team Providers Name Role Phone Caitlin Ballesteros MD Primary Care Provider Encounter Details Date Type Department Care Team Description 07/02/2013 Office Visit [facility] Michael Deshpande MD [facility] [address] [facility] [address] [address] [id number] Audiology Zahira Hernandez AuD [address] [place], [place] [phone] 6 [facility] [address] 8th Floor cl inic 8B [facility] [place] [facility] [place], [place] [phone] Social History Tobacco Use [...] results. RECOMMENDATIONS: Follow-up with ENT. [place] [id number] documented in this encounter Plan of [...] on filedocumented in this encounter Care Teams C Programmer Relationship Specialty Start Date End Date Caitlin Ballesteros MD PCP - General 10/08/11 08/11/13 documented as of this encounter
--- OUTSIDE RECORDS SUMMARY | 2021-12-22 08:43 | XMS_ITS | Encounter Summary ---
:1980 Author Organization [place] Address [address] [facility] [place] [address] Care Team Providers Name Role Phone Lisa Dewitt DO Primary Care Provider Reason for Visit Reason Onset Date Comments *-*INCOMING RECORDS*-* 01/28/2014 Encounter Details Date Type Department Care Team Description 01/28/2014 PRE VISIT Orthopaedic Clinic Astrid Rios, *-*INCOMING RECORDS*-* [facility] PA-C [facility] 1st Floor, [address] [place] [address], [address] [place] [phone] Social History Tobacco Use Types Packs/Day Years [...] Dr. Roth patient; records and imaging in [facility] PREAD CUTTER HAND documented in this encounter Plan of Treatment Not on filedocumented as of this encounter Visit Diagnoses Not on filedocumented in this encounter Care Teams Neonatal Icu Coordinator Relationship Specialty Start Date End Date Lisa Dewitt DO PCP - General 08/12/13 07/15/14 [facility] 2019 [place] [address] documented as of this encounter
--- OUTSIDE RECORDS SUMMARY | 2021-12-22 08:43 | XMS_ITS | Encounter Summary ---
:1980 Author Organization [place] Address [address] [facility] [place] [address] Care Team Providers Name Role Phone Caitlin Ballesteros MD Primary Care Provider Lisa Dewitt DO Primary Care Provider Reason for Visit Reason Onset Date Comments Referral 01/04/2013 Mental Health Referr al Encounter Details Date Type Department Care Team Description 01/04/2013 Telephone [facility] Caitlin Ballesteros MD Referral (Mental Medicine Clinic [facility] Referral) [address] [place] [address], PRACTICE [address] [facility] [place], [place] [address] [place] [address] (Wo rk) Social History Tobacco [...] - 01/04/2013 10:39 AM CST Referral noted CAR INSPECTOR Telephone Encounter - Collin Gabriel - 01/04/2013 10:12 AM CST [facility] Family Medicine phone call message- order or referral request for patient: Order or referral being requested: Mental Health Referral Order Details: Patient states she received a phone call regarding the mental health referral for counseling. She states she would like the [facility] because of their hours. If referral, has the patient been seen for this problem? N/A Additional Comments: OK to leave a message on voice mail? Yes Primary language: Indian Food Stylist needed? No Call taken on January 04, 2013 at 10:12 AM by Collin Gabriel CAR INSPECTOR documented in this encounter Plan of Treatment Not on filedocumented as of this encounter Visit Diagnoses Not on filedocumented in this encounter Care Teams Motorcycle Technician Relationship Specialty Start Date End Date Caitlin Ballesteros MD PCP - General 10/08/11 08/11/13 Lisa Dewitt DO PCP - General 08/12/13 07/15/14 [place] [address] [place] [address] documented as of this encounter
--- OUTSIDE RECORDS SUMMARY | 2021-12-22 08:43 | XMS_ITS | Encounter Summary ---
:1980 Author Organization [place] Address [address] [place] [address]. [place] [address] Care Team Providers Name Role Phone Caitlin Ballesteros MD Primary Care Provider Reason for Visit Reason Comments Exposure to STD Encounter Details Date Type Department Care Team Description 12/16/2012 Emergency [facility] Roxanne Grider MD Vaginal yeast infection (Primary Dx); Emergency Department [address] [place] [address] Possible exposure to STD [address] [place] [phone] (Wo rk) Social History Tobacco Use Types [...] Comments Blood Pressure 126/83 12/16/2012 6:29 PM BUSINESS INTELLIGENCE DIRECTOR Pulse 123 12/16/2012 6:29 PM BUSINESS INTELLIGENCE DIRECTOR Temperature 36.4 ??C (97.5 ??F) 12/16/2012 6:29 PM BUSINESS INTELLIGENCE DIRECTOR Respiratory Rate 16 12/16/2012 6:29 PM BUSINESS INTELLIGENCE DIRECTOR Oxygen Saturation 98% 12/16/2012 6:29 PM BUSINESS INTELLIGENCE DIRECTOR Inhaled Oxygen Concentration - - Weight - - Height - - Body Mass Index - - documented in this encounter Discharge Instructions Discharge InstructionsRoxanne Grider MD - 12/16/2012 7:42 PM CST Please make an appointment to follow up with Your Primary Care Provider and lactation nurse--[facility] (phone: ) in 3-7 days even if entirely better. Use Diflucan for yeast infection Use Acyclovir as directed for herpes infection You or Your doctor will need to followup on your herpes virus blood test. NESS INTELLIGENCE DIRECTOR AttachmentsThe following attachments cannot be sent through Care Everywhere. VAGINITIS, ISAI (OCCITAN)documented in this encounter Medications at Time of [...] along with other ointment. fluticasone (FLONASE) 50 [place] 1-2 sprays 1 Package 11 11/1308/28/2013 MCG/ACT nasal into both nostrils sprayIndications: daily Environmental allergies fluticasone (FLONASE) 50 [place] 2 sprays into 0 01/01/2013 MCG/ACT nasal [...] Caitlin Ballesteros MD - 12/21/2012 4:47 PM BUSINESS INTELLIGENCE DIRECTOR Quick Note: Received the result note. Result [...] needs to make an appointment forfurther discussion. NESS INTELLIGENCE DIRECTOR documented in this encounter ED Notes Chuyita Gaston RN - 12/16/2012 7:48 PM CST Pt refused vitals NESS INTELLIGENCE DIRECTOR Roxanne Grider MD - 12/16/2012 6:35 PM [...] and Surgical History, and Social History inthe Cinpost system. Review of Systems Constitutional: Negative for [...] ED Course Procedures Critical Care time: none [facility] Diagnoses: None 6:40PM Patient seen and evaluated [...] NEG Ketones Urine Negative NEG mg/dL Specific [place] Urine 1.023 1.003 - 1.035 Blood Urine [...] to follow up with her PMD or mowing machine operator physician next week for culture results and further evaluation and treatment. Addendum: The patient is very concerned about being exposed to herpes. She would prefer that blood testing be done, as her ex-boyfriend will not to talk to her. I spoke with laboratory and will order herpes simplex IgG and IgM with reflux. The patient can follow this result with her PMD or mowing machine operator physician next week. I have reviewed the [...] STD INadya, am serving as a trained medical record coder to document services personally performed by Dr. Cheo MD, based on the provider's statements to me. This document has been checked and approved by the attending provider. December 16, 2012 12/16/2012 [facility], EMERGENCY DEPARTMENT Roxanne Grider MD 12/16/121956 NESS INTELLIGENCE DIRECTOR documented in this encounter Plan of Treatment Not on filedocumented as of this encounter Procedures Procedure Name Priority Date/Time Associated Comments Diagnosis HSV 1 AND 2 ANTIBODY Routine 12/16/2012 7:44 PM R esults for this IGG BUSINESS INTELLIGENCE DIRECTOR procedure are i n the results section. HSV 1 AND 2 IGG IGM STAT 12/16/2012 7:44 PM Re sults for this WITH REFLEX BUSINESS INTELLIGENCE DIRECTOR procedure are i n the results section. HCG QUALITATIVE URINE STAT 12/16/2012 6:58 PM Results for this POCT BUSINESS INTELLIGENCE DIRECTOR procedure are i n the results section. WET PREPARATION STAT 12/16/2012 6:48 PM Result s for this BUSINESS INTELLIGENCE DIRECTOR procedure are i n the results section. URINE MACROSCOPIC STAT 12/16/2012 6:48 PM Resu lts for this WITH REFLEX TO MICRO BUSINESS INTELLIGENCE DIRECTOR procedu re are in the results section. NEISSERIA GONORRHOEAE STAT 12/16/2012 6:48 PM Results for this PCR BUSINESS INTELLIGENCE DIRECTOR procedure are i n the results section. CHLAMYDIA TRACHOMATIS STAT 12/16/2012 6:48 PM Results for this PCR BUSINESS INTELLIGENCE DIRECTOR procedure are i n the results section. documented in this encounter Results HSV 1 and 2 antibody IgG (12/16/2012 7:44 PM BUSINESS INTELLIGENCE DIRECTOR) athologist Signature HSV 1 IgG [place] 24.90 [...] Volume Laterality 12/16/2012 7:44 PM 3 7:47 BUSINESS INTELLIGENCE DIRECTOR PM BUSINESS INTELLIGENCE DIRECTOR Roxanne Grider MD LAB - BLOOD ORDERABLES Performing Organization Address City/State/ZIP Code Phon e Number [facility] [address] [place] [address] [place] [facility] MICROBIOLOGY HSV 1 and 2 IgG IgM with reflex (12/16/2012 7:44 PM BUSINESS INTELLIGENCE DIRECTOR) athologist Signature HSV IgG 5.27 Index [facility] Antibody Value MICROBIOLOGY W/Reflex Comment: Positive Herpes Simplex Virus IgM Antibody 0.43 Index Value [facility] MICROBIOLOGY Comment: No detectable antibody. Specimen Anatomical Collection Method Collection Time Receive d Time (Source) Location / / Volume Laterality Blood specimen 12/16/2012 7:44 PM 013 7:47 (specimen) BUSINESS INTELLIGENCE DIRECTOR PM BUSINESS INTELLIGENCE DIRECTOR Roxanne Grider MD LAB - BLOOD ORDERABLES Performing Organization Address City/State/ZIP Code Phon e Number [facility] [address] [place], [place] [id number] [place] [address] [facility] MICROBIOLOGY hCG qual urine POCT (12/16/2012 6:58 PM BUSINESS INTELLIGENCE DIRECTOR) P athologist Signature HCG Qual Urine negative neg Internal QC OK Yes Specimen (Source) Anatomical Collection Method Collection Time Re ceived Time Location / / Volume Laterality Urine specimen 12/16/2012 6:58 PM (specimen) BUSINESS INTELLIGENCE DIRECTOR Roxanne Grider MD LAB - ENTER/EDIT POCT (ABNORMAL) UA reflex to microscopic (12/16/2012 6:48 PM BUSINESS INTELLIGENCE DIRECTOR) [facility] Method Time Signature Color Urine Yellow [facility] [place] [facility] Appearance Urine Slightly [facility] Cloudy [place] [facility] Glucose Urine Negative NEG mg/dL [facility] [place] [facility] Bilirubin Urine Negative NEG [facility] [place] [facility] Ketones Urine Negative NEG mg/dL [facility] [place] [facility] Specific [place] 1.023 1.003 - [facility] Urine 1.035 [place] [facility] Blood Urine Small (A) NEG [facility] [place] [facility] pH Urine 5.5 5.0 - 7.0 [facility] pH [place] [facility] Protein Albumin 10 (A) NEG mg/dL [facility] Urine [place] [facility] Urobilinogen Normal 0.0 - 2.0 [facility] mg/dL mg/dL [place] [facility] Nitrite Urine Negative NEG [facility] [place] [facility] Leukocyte Moderate (A) NEG [facility] Esterase Urine [place] [facility] Source Midstream [facility] Urine [place] [facility] RBC Urine 5 (H) 0 - 2 [facility] /HPF [facility] WBC Urine 9 (H) 0 - 2 [facility] /HPF [place] [facility] Bacteria Urine Few (A) NEG /HPF [facility] [place] [facility] Squamous 4 (H) 0 - 1 [facility] Epithelial /HPF /HPF [place] Urine LAB Mucous Urine Present (A) NEG /LPF [facility] [place] [facility] Specimen Anatomical Collection Method Collection Time Receive d Time (Source) Location / / Volume Laterality Urine specimen URINE SPECIMEN 12/16/2012 6:48 PM 12/16 7:01 (specimen) OBTAINED BY CLEAN BUSINESS INTELLIGENCE DIRECTOR PM BUSINESS INTELLIGENCE DIRECTOR CATCH PROCEDURE / Unknown Roxanne Grider MD LAB - URINE ORDERABLES Performing Organization Address City/State/ZIP Code Phon e Number [facility] [address] [place] [address] [facility] Chlamydia trachomatis PCR (12/16/2012 6:48 PM BUSINESS INTELLIGENCE DIRECTOR) Component Value Ref Test Analysis Performed At [facility] Method [place] Signature Specimen [facility] Description LAB Chlamydia Negative for C. trachomatis rRNA by head boys tennis coach mediated amplification. [facility] Trachomatis A negative result by transc ription mediated amplification does not preclude the MICROBIOLOGY PCR presence of C. trachomatis infection because results are dependent on proper and adequate collection, absence of inhibitors, and suffici ent rRNA to be detected. Specimen Anatomical Collection Method Collection Time Receive d Time (Source) Location / / Volume Laterality Urine specimen 12/16/2012 6:48 PM 013 6:59 (specimen) BUSINESS INTELLIGENCE DIRECTOR PM BUSINESS INTELLIGENCE DIRECTOR Roxanne Grider MD LAB - MICRO GENERAL ORDERABL ES Performing Organization Address City/State/ZIP Code Phon e Number [facility] [address] [place] [address] [facility] MICROBIOLOGY Neisseria gonorrhoeae PCR (12/16/2012 6:48 PM BUSINESS INTELLIGENCE DIRECTOR) Component Value Ref Test Analysis Performed At [facility] Method [facility] Specimen [facility]ix [facility] Descrip LAB N Gonorrhea Negative for N. gonorrhoeae rRNA by head boys tennis coach mediated amplification. [facility] PCR A negative result by transc ription mediated amplification does not preclude the MICROBIOLOGY presence of N. gonorrhoeae infection because re sults are dependent on proper and adequate collection, absence of inhibitors, and suffici ent rRNA to be detected. Specimen Anatomical Collection Method Collection Time Receive d Time (Source) Location / / Volume Laterality Urine specimen 12/16/2012 6:48 PM 013 6:59 (specimen) BUSINESS INTELLIGENCE DIRECTOR PM BUSINESS INTELLIGENCE DIRECTOR Roxanne Grider MD LAB - MICRO GENERAL ORDERABL ES Performing Organization Address City/State/ZIP Code Phon e Number [facility] [address] [place] [address] [facility] LAB [facility] MICROBIOLOGY Wet prep (12/16/2012 6:48 PM BUSINESS INTELLIGENCE DIRECTOR) Patholo gist Method Time Signature Specimen [facility]ix [facility] Description [place] [facility] Wet Prep Many PMNs seen [facility] No clue cells seen [place] No Trichomonas seen LAB No yeast seen Micro Report FINAL [facility] Status 12/16/2012 [place] [facility] Specimen Anatomical Collection Method Collection Time Receive d Time (Source) Location / / Volume Laterality Specimen from 12/16/2012 6:48 PM 12/17/19 13 6:56 vagina BUSINESS INTELLIGENCE DIRECTOR PM BUSINESS INTELLIGENCE DIRECTOR (specimen) Roxanne Grider MD LAB - MICRO GENERAL ORDERABL ES Performing Organization Address City/State/ZIP Code Phon e Number [facility] [address] [place], [place] [id number] [place] [address] [facility] documented in this encounter Visit Diagnoses Diagnosis Vaginal yeast infection - Primary Candidiasis of vulva and vagina Possible exposure to STD Other specified personal history present ing hazards to health documented in this encounter Care Teams Insulation Installer Relationship Specialty Start Date End Date Caitlin Ballesteros MD PCP - General 10/08/11 08/11/13 documented as of this encounter
--- OUTSIDE RECORDS SUMMARY | 2021-12-22 08:43 | XMS_ITS | Encounter Summary ---
:1982 Author Organization [place] Address [facility] [place] [address] Care Team Providers Name Role Phone Lisa Dewitt DO Primary Care Provider Reason for Referral [facility] - Closed Specialty Diagnoses / Procedures Referred By Contact Refer red To Contact Diagnoses Scoliosis Acquired postural kyphosis Astrid Rios PA-C [facility] [address] [place] [id number] Referral ID Status Reason Start Date Expiration Date Visits Requ ested Visits Authorized [id number] Closed 01/29/2014 07/28/2014 1 1 NURSE Reason for Visit Reason Comments Back Pain Scoliosis. Feeling screws an d clicking Encounter Details Date Type Department Care Team Description 01/29/2014 Office Visit [facility] Astrid Rios, Scoliosis (Primary Dx); [facility] MELISA Acquired postural kyphosis [facility] 1st Floor, [address] [place] [address] [place] [address], [phone] [place] [id number] Social History Tobacco Use Types Packs/Day Years [...] (151 lb 12.8 oz) 01/29/2014 8:18 AM PACU NURSE Height 160 cm (5' 3) 01/29/2014 8:18 AM PACU NURSE Body Mass Index 26.89 01/29/2014 8:18 AM PACU NURSE documented in this encounter Progress Notes Astrid [...] midline in the middle of her spine. [place] it one time yesterday, no recurrence. Also [...] DE OLIVEIRA Copy to patient AGUSTINA TELLEZ [address] [place] [phone] NURSE documented in this encounter Nursing Notes John [...] daily fluticasone (FLONASE) 50 MCG/ACT nasal spray [place] 1-2 sprays into both nostrils daily loratadine-pseudoePHEDrine [...] Reactions ??? Seasonal Allergies Mago Lopez CMA NURSE documented in this encounter Plan of Treatment Scheduled Referrals Name Type Priority Associated Diagnoses Order S chedule PHYSICAL THERAPY Referral Routine Scoliosis Ordered: 01/29/2014 REFERRAL (Internal) Acquired postural kyphosis documented as of this encounter Visit Diagnoses Diagnosis Scoliosis - Primary Scoliosis (and kyphoscoliosis), idiopath ic Acquired postural kyphosis Kyphosis (acquired) (postural) documented in this encounter Care Teams Dietary Cook Relationship Specialty Start Date End Date Lisa Dewitt DO PCP - General 08/12/13 07/15/14 [facility] [address] [place] [address] documented as of this encounter
--- OUTSIDE RECORDS SUMMARY | 2021-12-22 08:43 | XMS_ITS | Encounter Summary ---
:1980 Author Organization [place] Address [facility] [place] [address] Care Team Providers Name Role Phone Caitlin Ballesteros MD Primary Care Provider Reason for Visit Reason Onset Date Comments Results 12/24/2012 Encounter Details Date Type Department Care Team Description 12/24/2012 Telephone [facility] Jennifer Ballesteros MD Results Clinic [place] [address], [facility] PRACT ICE [address] [place], [place] [address] 7 [place] [address] [phone] (Wo rk) Social History Tobacco Use Types Packs/Day Years Used Date Smoking Tobacco: Passive Smoke Exposure - Never Smoker Smokeless Tobacco: Never Alcohol Use Standard Drinks/Week Comments No 0 (1 standard drink = 0.6 oz pure alcoho l) Sex Assigned at Date Recorded Not on file documented as of this encounter Miscellaneous Notes Telephone Encounter - Madison Nobles LPN - 12/25/2012 11:09 AM COMMUNITY BOARD MEMBER Patient seen in clinic 12-24-12. Madison Nobles LPN UNITY BOARD MEMBER Telephone Encounter - Terrie Link - 12/24/2012 7:58 AM CST [facility] Family [...] message on voice mail? Yes Primary language: Nauruan Mandrel Puller needed? No Call taken on December 24, 2012 at 7:58 AM by Terrie Link UNITY BOARD MEMBER documented in this encounter Plan of Treatment Not on filedocumented as of this encounter Visit Diagnoses Not on filedocumented in this encounter Care Teams Natural Resources Specialist Relationship Specialty Start Date End Date Caitlin Ballesteros MD PCP - General 10/08/11 08/11/13 documented as of this encounter
--- OUTSIDE RECORDS SUMMARY | 2021-12-22 08:43 | XMS_ITS | Encounter Summary ---
:1980 Author Organization [place] Address 2450 [facility] [place] [address] Care Team Providers Name Role Phone Lisa Dewitt DO Primary Care Provider Encounter Details Date Type Department Care Team Description 09/17/2013 Orders Only [facility] Lisa Dewitt DO Acne vulgaris Clinic [facility] [address] [place] [address] [place] [address] [place], [place] [address] [phone] Social History Tobacco Use Types Packs/Day Years [...] acne documented in this encounter Care Teams Electrical Automation Engineer Relationship Specialty Start Date End Date Lisa Dewitt DO PCP - General 08/12/13 07/15/14 [facility] [address] [place] [address] documented as of this encounter
--- OUTSIDE RECORDS SUMMARY | 2021-12-22 08:43 | XMS_ITS | Encounter Summary ---
:1980 Author Organization [place] Address 2450 [facility] [place] [address] Care Team Providers Name Role Phone Caitlin Ballesteros MD Primary Care Provider Reason for Visit Reason Onset Date Comments Other 07/10/2013 Encounter Details Date Type Department Care Team Description 07/10/2013 Telephone [facility] Jennifer Ballesteros MD Other Clinic [place] [address], [facility] PRACT [address] [place], [place] [address]40 7 [place] [address] [phone] (Wo rk) Social History Tobacco Use Types [...] Valarie Haji - 07/10/2013 3:30 PM CDT [facility] Family Medicine phone call message- general phone call: Reason for call: Patient needs to know her blood type as they are doing a blood drive at her place of employment. Return call needed: Yes OK to leave a message on voice mail? Yes Primary language: Citizen Of [place] Educational Speech Language Clinician needed? No Call taken on July 10, 2013 at 3:30 PM by Valarie Haji documented in this encounter Plan of Treatment Not on filedocumented as of this encounter Visit Diagnoses Not on filedocumented in this encounter Care Teams Photographic Technician Relationship Specialty Start Date End Date Caitlin Ballesteros MD PCP - General 10/08/11 08/11/13 documented as of this encounter
--- OUTSIDE RECORDS SUMMARY | 2021-12-22 08:43 | XMS_ITS | Encounter Summary ---
:1980 Author Organization [place] Address 2450 [facility] [place] [address] Care Team Providers Name Role Phone Caitlin Ballesteros MD Primary Care Provider Reason for Visit Reason Onset Date Comments Pre Visit Planning - Done 06/26/2013 Encounter Details Date Type Department Care Team Description 06/26/2013 PRE VISIT Ear, Nose and Throat Gael Deshpande MD Pre Visit Planning - Clinic ENT CLINIC AND Done 8th Floor, Clinic 8A HEARING CTR [facility] [address] [address] [place] [address] Social History Tobacco Use Types [...] have you been seen for this condition? [facility] Where and what testing has been done including: None ENT related surgeries in the past: No After the phone call: Request medical records: No From where: What date: Who did you speak to: Is the information already in the EMR? Yes Inform pt in case of any questions call Fabi at [phone]. documented in this encounter Plan of Treatment Not on filedocumented as of this encounter Visit Diagnoses Not on filedocumented in this encounter Care Teams Satin Finisher Relationship Specialty Start Date End Date Caitlin Ballesteros MD PCP - General 10/08/11 08/11/13 documented as of this encounter
--- OUTSIDE RECORDS SUMMARY | 2021-12-22 08:43 | XMS_ITS | Encounter Summary ---
:1980 Author Organization [place] Address 2450 [facility] [place] [address] Care Team Providers Name Role Phone Renate Lisa Primary Care Provider Reason for Visit Reason Onset Date Comments Refill Request 08/12/2013 Encounter Details Date Type Department Care Team Description 08/12/2013 Telephone [facility] Medicine Jennifer Ballesteros MD Refill Request Clinic [address], PRACTICE [address] [place], [place] [address]40 7 [place] [address] [phone] (Wo rk) Social History Tobacco Use Types [...] unspecified documented in this encounter Care Teams Doctorate Of Chiropractic Relationship Specialty Start Date End Date Lisa Dewitt DO PCP - General 08/12/13 07/15/14 [facility] 2019 [place] [address] documented as of this encounter
--- OUTSIDE RECORDS SUMMARY | 2021-12-22 08:43 | XMS_ITS | Encounter Summary ---
:1980 Author Organization [place] Address 2450 [facility] [place] [address] Care Team Providers Name Role Phone Caitlin Ballesteros MD Primary Care Provider Encounter Details Date Type Department Care Team Description 01/08/2013 Telephone [facility] Syd Alvarez MD Clinic [address] [place] [address], [address] [place], [place] [address] Social History Tobacco Use Types [...] disorder documented in this encounter Care Teams Environmental Technology Professor Relationship Specialty Start Date End Date Caitlin Ballesteros MD PCP - General 10/08/11 08/11/13 documented as of this encounter
--- OUTSIDE RECORDS SUMMARY | 2021-12-22 08:43 | XMS_ITS | Encounter Summary ---
:1980 Author Organization [place] Address [facility] [address] Care Team Providers Name Role Phone Lisa Dewitt DO Primary Care Provider Encounter Details Date Type Department Care Team Description 08/14/2013 Orders Only [facility] Lisa Dewitt Contracep tion (Primary Medicine Clinic DO Dx) [address] [place] [address] [place] [address] [place] [address]40 7 [place], [place] [phone] [address] Social History Tobacco Use Types Packs/Day Years [...] management documented in this encounter Care Teams Clay Processing Labourer Relationship Specialty Start Date End Date Lisa Dewitt DO PCP - General 08/12/13 07/15/14 [facility] [address] [place] [id number] documented as of this encounter
--- OUTSIDE RECORDS SUMMARY | 2021-12-22 08:43 | XMS_ITS | Encounter Summary ---
:1980 Author Organization [place] Address 2450 [facility] [place] [address] Care Team Providers Name Role Phone Caitlin Ballesteros MD Primary Care Provider Reason for Visit Reason Comments Torticollis seen 1 week ago for neck sti ffness, given meds, not getting any better Encounter Details Date Type Department Care Team Description 03/07/2013 Emergency [facility] Rona Perez, initial Emergency Department MD Nan encounter (Primary Dx) [address] [place] [address] Social History Tobacco Use Types Packs/Day [...] Comments Blood Pressure 126/84 03/07/2013 11:50 AM CORPORATE REAL ESTATE MANAGER Pulse 88 03/07/2013 11:50 AM CORPORATE REAL ESTATE MANAGER Temperature 36.5 ??C (97.7 ??F) 03/07/2013 10:49 AM CORPORATE REAL ESTATE MANAGER Respiratory Rate 16 03/07/2013 11:50 AM CORPORATE REAL ESTATE MANAGER Oxygen Saturation 98% 03/07/2013 10:49 AM CORPORATE REAL ESTATE MANAGER Inhaled Oxygen Concentration - - Weight - - Height - - Body Mass Index - - documented in this encounter Discharge Instructions AttachmentsThe following attachments cannot be sent through Care Everywhere.NECK SPASM, NO TRAUMA (MONGOLIAN)documented in this encounter Medications at Time of [...] needed for muscle spasms fluticasone (FLONASE) 50 [place] 1-2 sprays 1 Package 11 11/1308/28/2013 MCG/ACT [...] from the original note were not included. [facility] 16 on March 07, 2013 at [...] and Surgical History, and Social History inthe [employer] system. PAST MEDICAL HISTORY: Past Medical History [...] spasms FLUTICASONE (FLONASE) 50 MCG/ACT NASAL SPRAY [place] 1-2 sprays into both nostrils daily IBUPROFEN [...] diaphoretic. ED Course Procedures Patient assessed in [facility] 16 on March 07, 2013 at [...] IApril, am serving as a trained medical apparatus model maker to document services personally performedby Nan Perez MD, based on the provider's statements to me. Inan, was physically present and have reviewed and verified the accuracy of this notedocumented by April Porter, medical apparatus model maker. 03/07/2013 [facility] [place], EMERGENCY DEPARTMENT Nan Perez MD 03/07/13 [address] [place] REAL ESTATE MANAGER documented in this encounter Plan of Treatment Not on filedocumented as of this encounter Visit Diagnoses Diagnosis Cervical strain, initial encounter - Emerald cotter documented in this encounter Care Teams Melter Clerk Relationship Specialty Start Date End Date Caitlin Ballesteros MD PCP - General 10/08/11 08/11/13 documented as of this encounter
--- OUTSIDE RECORDS SUMMARY | 2021-12-22 08:43 | XMS_ITS | Encounter Summary ---
:1980 Author Organization [place] Address [facility] [place] [address] Care Team Providers Name Role Phone Caitlin Ballesteros MD Primary Care Provider Reason for Referral - Closed Specialty Diagnoses / Procedures Referred By Contact Refer red To Contact Diagnoses Anxiety Panic attack Del Alvarez MD [address] [place] [address] Referral ID Status Reason Start Date Expiration Date Visits Requ ested Visits Authorized [id number] Closed 01/04/2013 07/03/2013 1 1 R EQUIPMENT TECHNOLOGY INSTRUCTOR Reason for Visit Reason Comments Recheck Medication Hydroxyzine Encounter Details Date Type Department Care Team Description 01/01/2013 Office Visit [facility] Sonja Alvarez (Emerald cotter Dx); Medicine Clinic MD Del Panic attack [address], [address] [place], [place] [address] Social History Tobacco Use Types [...] Comments Blood Pressure 116/77 01/01/2013 4:04 PM POWER EQUIPMENT TECHNOLOGY INSTRUCTOR Pulse 100 01/01/2013 4:04 PM POWER EQUIPMENT TECHNOLOGY INSTRUCTOR Temperature 36.6 ??C (97.9 ??F) 01/01/2013 4:04 PM POWER EQUIPMENT TECHNOLOGY INSTRUCTOR Respiratory Rate - - Oxygen Saturation 99% 01/01/2013 4:04 PM POWER EQUIPMENT TECHNOLOGY INSTRUCTOR Inhaled Oxygen Concentration - - Weight 72.1 kg (159 lb) 01/01/2013 4:04 PM POWER EQUIPMENT TECHNOLOGY INSTRUCTOR Height 156.7 cm (5' 1.7) 01/01/2013 4:04 PM POWER EQUIPMENT TECHNOLOGY INSTRUCTOR Body Mass Index 29.36 01/01/2013 4:04 PM POWER EQUIPMENT TECHNOLOGY INSTRUCTOR documented in this encounter Patient Instructions Patient InstructionsDel Spencer MD - 01/01/2013 4:46 PM POWER EQUIPMENT TECHNOLOGY INSTRUCTOR [facility], [place]): [phone] [facility] [place] [address] Patient to call to make appt Patients PCP needs to be changed From [facility] EQUIPMENT TECHNOLOGY INSTRUCTOR documented in this encounter Progress Notes Figueroa Swain MD - 01/01/2013 4:35 PM CST Preceptor Attestation: Patient's case reviewed and discussed with resident and I examined the patient. I agree with writtenassessment and plan of care Supervising Physician: Figueroa Swain MD MD [facility] R EQUIPMENT TECHNOLOGY INSTRUCTOR Del Spencer MD - 01/01/2013 4:23 PM [...] fluticasone (FLONASE) 50 MCG/ACT nasal spray Active [place] 1-2 sprays into both nostrils daily ??? [...] final plan. Del Alvarez. Gagan Aquino's Page: [phone] R EQUIPMENT TECHNOLOGY INSTRUCTOR documented in this encounter Plan of Treatment Scheduled Referrals Name Type Priority Associated Diagnoses Order S [facility] MENTAL HEALTH REFERRAL Referral Routine Anxiety Ordered: 01/04/2013 Panic attack documented as of this encounter Visit Diagnoses Diagnosis Anxiety - Primary Anxiety state, unspecified Panic attack Panic disorder without agoraphobia documented in this encounter Care Teams Senior Genetic Counselor Relationship Specialty Start Date End Date Caitlin Ballesteros MD PCP - General 10/08/11 08/11/13 documented as of this encounter
--- OUTSIDE RECORDS SUMMARY | 2021-12-22 08:43 | XMS_ITS | Encounter Summary ---
:1980 Author Organization [place] Address [facility] [place] [address] Care Team Providers Name Role Phone Lisa Dewitt DO Primary Care Provider Reason for Visit Reason Onset Date Comments Refill Request 12/31/2013 Encounter Details Date Type Department Care Team Description 12/31/2013 Telephone [facility] Lisa Dewitt DO Refill Request Clinic [place] [address], [address] [place] [address] [place], [place] [address] [phone] Social History Tobacco Use Types Packs/Day Years [...] back with any questions. Bunny Patino RN PRESIDENT FIXED INCOME Telephone Encounter - Hillary Brumfield - 12/31/2013 11:39 AM CST [facility] Family Medicine phone call message- patient requesting a refill: Full Medication Name: minocycline (DYNACIN) 100 MG Capsule Pharmacy confirmed as [facility] [address] [place], [place] - [address] [place] [address] [phone] : Yes Additional Comments: Patient states her insurance does not cover the Tablets, she needs the prescription to read Capsule. OK to leave a message on voice mail? Yes Primary language: Stateless Rag Washer needed? No Call taken on December 31, 2013 at 11:39 AM by Hillary Brumfield PRESIDENT FIXED INCOME documented in this encounter Plan of Treatment Not on filedocumented as of this encounter Visit Diagnoses Diagnosis Acne vulgaris Other acne documented in this encounter Care Teams Abrasive Band Winder Relationship Specialty Start Date End Date Lisa Dewitt DO PCP - General 08/12/13 07/15/14 [facility] 2019 [place] [address] documented as of this encounter
--- OUTSIDE RECORDS SUMMARY | 2021-12-22 08:43 | XMS_ITS | Encounter Summary ---
:1980 Author Organization [place] Address [facility] [place] [address] Care Team Providers Name Role Phone Caitlin Ballesteros MD Primary Care Provider Reason for Visit Reason Comments Medication Problem contraception Encounter Details Date Type Department Care Team Description 01/14/2013 Office Visit [facility] Josiah Johnson, Lora ption (Primary Dx); Medicine Clinic MD Najera [address] [place] [address] [address] [place], [place] [address] 2019 [place] [address] Social History Tobacco Use Types [...] Comments Blood Pressure 116/80 01/14/2013 3:59 PM BARREL DRAINER Pulse 95 01/14/2013 3:59 PM BARREL DRAINER Temperature 36.4 ??C (97.5 ??F) 01/14/2013 3:59 PM BARREL DRAINER Respiratory Rate - - Oxygen Saturation 98% 01/14/2013 3:59 PM BARREL DRAINER Inhaled Oxygen Concentration - - Weight 72.1 kg (159 lb) 01/14/2013 3:59 PM BARREL DRAINER Height 160 cm (5' 3) 01/14/2013 3:59 PM BARREL DRAINER Body Mass Index 28.17 01/14/2013 3:59 PM BARREL DRAINER documented in this encounter Progress Notes Keri Elias MD - 01/14/2013 4:35 PM CST Preceptor Attestation: Patient's case reviewed and discussed with resident and I examined the patient. I agree with writtenassessment and plan of care Supervising Physician: Keri Elias MD [facility] EL DRAINER Josiah Johnson MD - 01/14/2013 4:23 PM [...] Diagnosis ??? Adolescent idiopathic scoliosis ??? Health [facility] ??? Acne vulgaris ??? Anxiety ??? Congenital [...] fluticasone (FLONASE) 50 MCG/ACT nasal spray Active [place] 1-2 sprays into both nostrils daily ??? [...] with the final plan. Josiah Johnson MD EL DRAINER documented in this encounter Plan of Treatment Not on filedocumented as of this encounter Visit Diagnoses Diagnosis Contraception - Primary Unspecified contraceptive management Metrorrhagia documented in this encounter Care Teams Process Steward Relationship Specialty Start Date End Date Caitlin Ballesteros MD PCP - General 10/08/11 08/11/13 documented as of this encounter
--- OUTSIDE RECORDS SUMMARY | 2021-12-22 08:43 | XMS_ITS | Encounter Summary ---
:1980 Author Organization [place] Address 2450 [facility] [place] [address] Care Team Providers Name Role Phone Lisa Dewitt DO Primary Care Provider Reason for Visit Reason Onset Date Comments Refill Request 11/11/2013 Encounter Details Date Type Department Care Team Description 11/11/2013 Refill [facility] Lisa Dewitt DO Refill Request [place] [address], [address] [place] [address] [place], [place] [phone] Social History Tobacco Use Types Packs/Day Years [...] acne documented in this encounter Care Teams Transmitter Tester Relationship Specialty Start Date End Date Lisa Dewitt DO PCP - General 08/12/13 07/15/[address] [place] [address] documented as of this encounter
--- OUTSIDE RECORDS SUMMARY | 2021-12-22 08:43 | XMS_ITS | Encounter Summary ---
:1980 Author Organization [place] Address [facility]0 [facility] [place] [address] Care Team Providers Name Role Phone Bebeto Roth MD Unavailable sAtrid Rios PA-C Unavailable [facility] Primary Care Provider + Reason for Referral [facility] - Closed Specialty Diagnoses / Procedures Referred By Contact Refer red To Contact Diagnoses Kyphoscoliosis Astrid Rios PA-C [facility] [address] [place] [address] Referral ID Status Reason Start Date Expiration Date Visits Requ ested Visits Authorized [id number] Closed 07/16/2014 01/12/2015 1 1 Reason for Visit Reason Comments RECHECK s/p spinal fusion 09/3009, ba ck cracking Encounter Details Date Type Department Care Team Description 07/16/2014 Office Visit Orthopaedic Clinic Astrid Rios Kyphoscoliosis (Primary [place] MELISA Dx) Rehabilitation [facility] 1st Floor, [address] [place] [address] 3580 [facility] [address] [facility] [phone] [place] [address] Social History Tobacco Use Types [...] back cracking Primary MD: sawyer Ref. MD: Horticulture Supervisor? 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 Date of injury: Type of injury: Date [...] ic documented in this encounter Care Teams Layout Worker Relationship Specialty Start Date End Date Clinic - Angela Laboy PCP - General 07/16/[address] [place] [address] [address] [place] [address] Bebeto Roth MD Orthopedics 07/09/14 [facility] [place] [address] Astrid Rios PA-C Physician Lithoduplicator Operator Physician Lithoduplicator Operator - 07/09/14 Surgical documented as of this encounter
--- OUTSIDE RECORDS SUMMARY | 2021-12-22 08:44 | XMS_ITS | Encounter Summary ---
:1980 Author Organization [place] Address 2450 [facility] [place] [address] Care Team Providers Name Role Phone Unavailable Primary Care Provider Unavailable Encounter Details Date Type Department Care Team Description 08/11/2011 Historic Results [facility] Leanne Navarro [place] MD Андр[address] [place] [address] [place] [address] Social History Tobacco Use Types Packs/Day Years [...]
--- OUTSIDE RECORDS SUMMARY | 2021-12-22 08:44 | XMS_ITS | Encounter Summary ---
:1980 Author Organization [place] Address [facility] [place] [address] Care Team Providers Name Role Phone Caitlin Ballesteros MD Primary Care Provider Reason for Visit Reason Onset Date Comments Refill Request 10/30/2012 Encounter Details Date Type Department Care Team Description 10/30/2012 Refill [facility] Jennifer Ballesteros MD Refill Request Clinic [address] 104 [facility] [place], [place] [address] [place] [address] [phone] (Wo rk) Social History Tobacco Use Types Packs/Day Years Used Date Smoking Tobacco: Passive Smoke Exposure - Never Smoker Alcohol Use Standard Drinks/Week Comments No 0 (1 standard drink = 0.6 oz pure alcoho l) Sex Assigned at Date Recorded Not on file documented as of this encounter Miscellaneous Notes Telephone Encounter - Sharad Duque CMA - 10/30/2012 1:11 PM CDT [facility] Family Medicine phone call message- patient requesting a refill: Full Medication Name: minocycline Dose: 100MG tablets Pharmacy confirmed as [facility] [id number] [place] [address] [phone] : Yes Additional Comments: The patient said the pharmacy faxed the refill request Monday in the PM. I let her know I will send high priority message to the nurse to fill today and the pharmacy will call whenit is ready to picker and sorter load and unload. Thanks! OK to leave a message on voice mail? Yes Primary language: Ivorian Livestock Laborer needed? No Call taken on October 30, 2012 at 1:11 PM by SHARAD DUQUE documented in this encounter Plan of Treatment Not on filedocumented as of this encounter Visit Diagnoses Diagnosis Acne vulgaris - Primary Other acne documented in this encounter Care Teams Build And Release Manager Relationship Specialty Start Date End Date Caitlin Ballesteros MD PCP - General 10/08/11 08/11/13 documented as of this encounter
--- OUTSIDE RECORDS SUMMARY | 2021-12-22 08:44 | XMS_ITS | Encounter Summary ---
:1980 Author Organization [place] Address [address] [place] [address]. [place] [address] Care Team Providers Name Role Phone Andreas Patel MD Primary Care Provider Reason for Visit Reason Comments Contractions every 6-12 minutes, became m ore painful the last two hours Auth/Cert - Closed Specialty Diagnoses / Procedures Referred By Contact Refer red To Contact residential interior designer Diagnoses maternity*vincent: 09/19/2011/labor [id number] Zzur peteob [address] [place] [address] Phone: Referral ID Status Reason Start Date Expiration Date Visits Requ ested Visits Authorized [id number] Closed 1 1 Encounter Details Date Type Department Care Team Description 10/04/2011 - Hospital Encounter JOSE CRUZ SERNA Weston, , subsequent (Prima ry Dx); 10/07/[address] [place] [address] [place] [address] [address] [place] [address] Social History Tobacco Use Types [...] from the original note were not included. [facility] Post- Discharge Summary Jocelin Garg Age: [age] year old Date of : 1980 Date of Admission: 10/04/2011 Date of Discharge:: 10/07/2011 Admitting Physician: August Ontiveros MD Discharge Physician: Dr. Boyer. Home clinic: [facility] Admission Diagnoses: Discharge Diagnosis: Normal [...] Discharge Disposition: Discharged to home Miracle Teran,PGY1 [facility]. Attestation: This patient has been seen and evaluated by me, Aditi Boyer MD. Seen and discussed with the resident Dr Trean and Kenia's Team. I agree with the findings and plan in this note. I have reviewed today's vital signs, medications, labs and imaging. Aditi Boyer MD MD [facility] documented in this encounter Discharge Instructions Discharge InstructionsBeto Ordonez RN - 10/07/2011 1:53 PM CDT [facility] Vaginal Delivery or Discharge Instructions Activity: Go back to your normal activities, except pelvic rest for 6 weeks. Diet: You may eat a regular diet. Drink plenty of fluids. Call your Doctor or Pick Up Attendant if you have any of these symptoms: [...] [facility] PGY 1 Pager No. [phone] Attestation: This patient has been seen and [...] d/c tomorrow on PPD#2. Valarie Moore MD [facility] Jenae Wilson RN - 10/05/2011 11:06 AM [...] Primary care provider: Andreas Patel Home Clinic: [facility] On 10/05/2011 at 0542, this [...] PGY-2 Nurse: KENNY Jonas PGY-2 Family Medicine [facility], [place] Pager : [phone] August Ontiveros MD Faculty [facility] August Ontiveros MD - 10/05/2011 4:08 AM CDT [facility] Intrapartum Progress Note October 05, 2011 4:11 [...] is Category 1. ASSESSMENT and PLAN: Jocelin Garg is a 31 year old at 40w6d [...] AM CDT October 05, 2011 Jocelin Garg [id number] OB Admit History & Physical Ms. Irma Garg is a patient of Andreas Ramsay and partner Amanda from [facility]. She is a 31 year [...] normal range. Labs ABO O 04/20/2011 , [id number] Pos 04/20/2011 Hemoglobin Date Value Range Status [...] lactated ringers solution ??? penicillin G potassium [id number] UNIT injection ??? lactated ringers infusion ??? [...] Individualization/Patient-Specific Goal (Adult,OB,Behavioral The patient and/or their support representative will achieve their patient-specific goals related to the plan of care. The patient-specific goals include: To discharge today. Patient discharged today. Discharge instructions reviewed and home medications given with instruction. Patient verbalized understanding and denied further questions. Plan of Care - Gina Gordon RN - 10/06/2011 9:46 PM CDT Problem: IP GENERAL POC-ADULT,OB,BEHAVIORAL FVCPM Goal: Individualization/Patient-Specific Goal (Adult,OB,Behavioral The patient and/or their support representative will achieve their patient-specific goals related [...] Individualization/Patient-Specific Goal (Adult,OB,Behavioral The patient and/or their support representative will achieve their patient-specific goals related [...] Outcome: Improving Data: Jocelin Garg transferred to [facility] via wheelchair at 830. Baby transferred via [...] Signature Hemoglobin 8.2 (L) 11.7 - 15.7 [facility] g/dL LAB Specimen Anatomical Collection Method Collection Time Receive d Time (Source) Location / / Volume Laterality Blood specimen 10/06/2011 7:42 AM 012 7:57 (specimen) CDT AM CDT Andreas Patel MD LAB - BLOOD ORDERABLES Performing Organization Address City/State/ZIP Code Phon e Number [facility] [address] [place] [address] [facility] LAB documented in this encounter Visit Diagnoses [...] be given until delivery. penicillin G potassium [id number] UNIT inje ction Starting on Mon10/05/11 at [...] request) 1143 (Given - Provider: Italia Loving, KENNY)2111 (Given - Provider: Gina Gordon RN) 0820 [...] discretion. documented in this encounter Care Teams Dairy Worker Relationship Specialty Start Date End Date Andreas Patel MD PCP - General 10/05/11 10/07/11 [facility] [address] [place] [address] documented as of this encounter
--- OUTSIDE RECORDS SUMMARY | 2021-12-22 08:44 | XMS_ITS | Encounter Summary ---
:1980 Author Organization [place] Address [address] [facility] [place] [address] Care Team Providers Name Role Phone Caitlin Ballesteros MD Primary Care Provider Reason for Visit Reason Comments Abstract Encounter Details Date Type Department Care Team Description 12/19/2011 Abstract [facility] Abstract, Provider [address], [address] [place], [place] [address] Social History Tobacco Use Types Packs/Day Years Used Date Smoking Tobacco: Never Alcohol Use Standard Drinks/Week Comments No 0 (1 standard drink = 0.6 oz pure alcoho l) Sex Assigned at Date Recorded Not on file documented as of this encounter Plan of Treatment Not on filedocumented as of this encounter Visit Diagnoses Not on filedocumented in this encounter Care Teams Deputy Felony Clerk Relationship Specialty Start Date End Date Caitlin Ballesteros MD PCP - General 10/08/11 08/11/13 documented as of this encounter
--- OUTSIDE RECORDS SUMMARY | 2021-12-22 08:44 | XMS_ITS | Encounter Summary ---
:1980 Author Organization [place] Address [address] [facility]. [address] Care Team Providers Name Role Phone Andreas Patel MD Primary Care Provider Caitlin Ballesteros MD Primary Care Provider Lisa Dewitt DO Primary Care Provider Bebeto Roth MD Unavailable Astrid Rios PA-C Unavailable [facility] Primary Care Provider + Keri Elias MD Primary Care Provider Unavailable Francisco Metz MD Primary Care Provider [phone] Francisco Metz MD Unavailable [phone] Kenton Katz MD Unavailable Unavailable Karen Veliz DO Primary Care Provider Kenton Katz MD Unavailable Unavailable Karen Veliz DO Unavailable Encounter Details Date Type Department Care Team Description 09/22/2011 Office Visit-[facility] INTERFACE [facility] DEPT Social History Tobacco Use Types Packs/Day Years Used Date Smoking Tobacco: Never Alcohol Use Standard Drinks/Week Comments No 0 (1 standard drink = 0.6 oz pure alcoho l) Sex Assigned at Date Recorded Not on file documented as of this encounter Progress Notes SY UMP ULTRASOUND - 09/22/2011 2:00 PM CDT Population Health Manager: SMILEYS, ULTRASOUND Status: Amended, Final Encounter: 2011-09-22 14:00:00.000 Type: FM Ultrasound Active Problems Acne Vulgaris (706.1) Anxiety (300.00) Care Coordinated By; Tier 0 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 US Biophysical Profile Report Primary MD: Dr Patle /Dr Ballesteros / Dr Ontiveros Dining Room Host/Hostess: Latesha Harley Indications: pt. not feeling baby move. Dr. Franks asked for a BPP Machine [employer] 5 Pro EGA 39wks by Previous US [...] By: Payton Franks ; 09/22/2011 3:03 PM PHARMACY TECHNICIAN TRAINEE. Signature Signed By: Latesha Harley ; 09/22/2011 2:52 PM PHARMACY TECHNICIAN TRAINEE. Signed By: Payton Franks M.D.; 09/22/2011 3:03 PM PHARMACY TECHNICIAN TRAINEE; Author. Signed By: Aditi Boyer M.D.; 09/26/2011 2:03 PM PHARMACY TECHNICIAN TRAINEE. MACY TECHNICIAN TRAINEE SY [facility] ULTRASOUND - 09/22/2011 1:20 PM CDT Population Health Manager: PATRICIO, ULTRASOUND Status: Amended, Final Encounter: 2011-09-22 13:20:00.000 Type: FM Ultrasound Active Problems Acne Vulgaris (706.1) Anxiety (300.00) Care Coordinated By; Tier 0 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 US 2nd & 3rd Trimester Ultrasound Report Primary MD: Dr Patel / Dr Ontiveros /Dr Ballesteros Dining Room Host/Hostess: Latesha Harley Indications: recheck growth Machine: [employer] 5 Pro FHR: 143 bpm Fluid:Normal TJ: [...] By: August Ontiveros ; 09/26/2011 2:25 PM PHARMACY TECHNICIAN TRAINEE. Signature Signed By: Latesha Harley ; 09/22/2011 2:41 PM PHARMACY TECHNICIAN TRAINEE. Signed By: August Ontiveros M.D.; 09/26/2011 2:26 PM PHARMACY TECHNICIAN TRAINEE; Author. MACY TECHNICIAN TRAINEE documented in this encounter Plan of Treatment Not on filedocumented as of this encounter Visit Diagnoses Not on filedocumented in this encounter Care Teams Solar Energy Systems Designer Relationship Specialty Start Date End Date Andreas Patel MD PCP - General 10/05/11 10/07/11 [facility] [address] [place] [address] Caitlin Ballesteros MD PCP - General 10/08/11 08/11/13 Lisa Dewitt DO PCP - General 08/12/13 07/15/14 [facility] [address] [place], [place] [phone] Clinic - [facility], PCP - General 07/16/14 03/11/15 [facility] [address] [place] [address] Keri Elias PCP - General Family Practice 03/12/15 9 MD Isaías Glez Mitchell PCP - General Family Practice 11/14/18 04/02/20 MD Stevie Karen Veliz, PCP - General Family Medicine 04/03/[address] [place], [place] [id number] Bebeto Roth MD Orthopedics 07/09/14 [facility] [address] [place] [address] Astrid Rios PA-C Physician Squad Leader Physician Squad Leader - 07/09/14 Surgical Francisco Metz Assigned PCP 07/04/19 02/01/20 MD Stevie [address] [place] [address] Kenton Katz Assigned PCP 02/02/20 08/27/20 MD Feliberto NO INFO AVAILABLE Kenton Katz Assigned Endocrinology 08/28/20 07/23/21 MD Feliberto Provider NO INFO AVAILABLE Karen Veliz, Assigned PCP 08/28/20 DO [address] [place], [place] [id number] documented as of this encounter
--- OUTSIDE RECORDS SUMMARY | 2021-12-22 08:44 | XMS_ITS | Encounter Summary ---
:1980 Author Organization [place] Address [facility] [place] [address] Care Team Providers Name Role Phone Caitlin Ballesteros MD Primary Care Provider Reason for Visit Reason Comments Contraception Encounter Details Date Type Department Care Team Description 04/03/2012 Office Visit [facility] Caitlin Ballesteros MD Contraception (Primary Dx); Medicine Clinic [facility] Depo-Provera contraceptive s tatus [address], PRACTICE [address] [place] [address] [place] [address] [phone] (Wo rk) Social History Tobacco Use Types [...] Comments Blood Pressure 112/76 04/03/2012 2:40 PM RADIO FREQUENCY ENGINEER Pulse 106 04/03/2012 2:40 PM RADIO FREQUENCY ENGINEER Temperature 36.4 ??C (97.6 ??F) 04/03/2012 2:40 PM RADIO FREQUENCY ENGINEER Respiratory Rate - - Oxygen Saturation 100% 04/03/2012 2:40 PM RADIO FREQUENCY ENGINEER Inhaled Oxygen Concentration - - Weight 71.9 kg (158 lb 9.6 oz) 04/03/2012 2:40 PM RADIO FREQUENCY ENGINEER Height 157.5 cm (5' 2) 04/03/2012 2:40 PM RADIO FREQUENCY ENGINEER Body Mass Index 29.01 04/03/2012 2:40 PM RADIO FREQUENCY ENGINEER documented in this encounter Patient Instructions Patient InstructionsCaitlin Ballesteros MD - 04/03/2012 2:57 PM CST Thank you for coming to [facility]. If you had lab testing today and your results are reassuring or normal they will be be mailed to you within 7 days. If the lab tests need quick action we will call you with the results. The phone number we will call with results is # [phone] (home) . If this is not the best numberplease call our clinic and change the number. If you need any refills please call your pharmacy and they will contact us. If you have any concerns about today's visit or wish to schedule another appointment please call ouroffice during normal business hours [phone] (8- 5:30 M-F) If you have urgent medical concerns please call [phone] at any time of the day. If you have a medical emergency please call 911 Again thank you for choosing [facility] and please let us know how we can best partner with youto improve your and your family's health. O FREQUENCY ENGINEER documented in this encounter Progress Notes Keri Elias MD - 04/03/2012 3:06 PM CST Preceptor Attestation: Patient's case reviewed and discussed with resident. I agree with written assessment and plan of care Supervising Physician: Keri Elias MD MD [facility] Medicine O FREQUENCY ENGINEER Caitlin Ballesteros MD - 04/03/2012 2:48 PM [...] mL into the muscle every 3 months. O FREQUENCY ENGINEER documented in this encounter Plan of Treatment Not on filedocumented as of this encounter Procedures Procedure Name Priority Date/Time Associated Diagnosis Comme nts HCG QUALITATIVE Routine 04/03/2012 3:04 PM Contraception Resul ts for this URINE (LABDAQ) RADIO FREQUENCY ENGINEER procedure are in the results section. documented in this encounter Results HCG Qualitative Urine (UPT) (Narda) (04/03/2012 3:04 PM RADIO FREQUENCY ENGINEER) P athologist Signature HCG Qual Urine NEGATIVE [facility] LAB Specimen Anatomical Collection Method Collection Time Receive d Time (Source) Location / / Volume Laterality Urine specimen 04/03/2012 3:04 PM 013 3:04 (specimen) RADIO FREQUENCY ENGINEER PM RADIO FREQUENCY ENGINEER Caitlin Ballesteros MD LAB - LABDAQ Performing Organization Address City/State/ZIP Code Phon e Number [facility] [address] [place] [phone] LABDAQ [facility] [address] [place] [address] documented in this encounter Visit Diagnoses Diagnosis Contraception - Primary Unspecified contraceptive management Depo-Provera contraceptive status Surveillance of other previously prescri bed contraceptive method documented in this encounter Care Teams Administrative Court Justice Relationship Specialty Start Date End Date Caitlin Ballesteros MD PCP - General 10/08/11 08/11/13 documented as of this encounter
--- OUTSIDE RECORDS SUMMARY | 2021-12-22 08:44 | XMS_ITS | Encounter Summary ---
:1980 Author Organization [place] Address [address] [facility] [place] [address] Care Team Providers Name Role Phone Unavailable Primary Care Provider Unavailable Encounter Details Date Type Department Care Team Description 08/04/2011 Historic Results [facility] Leanne Navarro Mckinney MD Андрей [address] [place] [address] [place] [address] Social History Tobacco Use Types Packs/Day Years [...] 1 Hr (LabDAQ) (08/04/2011 12:00 PM CDT) [facility] gist Method Time Signature Glu Gest [...]
--- OUTSIDE RECORDS SUMMARY | 2021-12-22 08:44 | XMS_ITS | Encounter Summary ---
:1980 Author Organization [place] Address [address] [facility] [place] [address] Care Team Providers Name Role Phone Andreas Patel MD Primary Care Provider Caitlin Ballesteros MD Primary Care Provider Lisa Dewitt DO Primary Care Provider Bebeto Roth MD Unavailable Astrid Rios PA-C Unavailable [facility] Primary Care Provider + Keri Elias MD Primary Care Provider Unavailable Francisco Metz MD Primary Care Provider [phone] Francisco Metz MD Unavailable [phone] Kenton Katz MD Unavailable Unavailable Karen Veliz [...] UMP ULTRASOUND - 06/23/2011 9:10 AM CDT Panel Coverer: ADOLFO CURRY Status: Amended, Final Encounter: 2011-06-23 09:10:00.000 Type: FM Ultrasound Active Problems Acne Vulgaris (706.1) Anxiety (300.00) Care Coordinated By; Tier 0 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 US 2nd & 3rd Trimester Ultrasound Report Primary MD: Dr Navarro Erp Manager: Latesha Halrey Indications: survey P: 2 Machine: [employer] 5 Pro FHR: 138 bpm Fluid:Normal Placenta [...] By: August Ontiveros ; 06/27/2011 3:10 PM INDUCTION COORDINATION ENGINEER. Signature Signed By: Latesha Harley ; 06/23/2011 9:48 AM INDUCTION COORDINATION ENGINEER. Signed By: August Ontiveros M.D.; 06/27/2011 3:11 PM INDUCTION COORDINATION ENGINEER; Author. CTION COORDINATION ENGINEER documented in this encounter Plan of Treatment Not on filedocumented as of this encounter Visit Diagnoses Not on filedocumented in this encounter Care Teams Labor Arbitrator Relationship Specialty Start Date End Date Andreas Patel MD PCP - General 10/05/11 10/07/11 [facility] [address] [place] [address] Caitlin Ballesteros MD PCP - General 10/08/11 08/11/13 Lisa Dewitt DO PCP - General 08/12/13 07/15/14 [facility] [address] [place], [place] [phone] [facility] PCP - General 07/16/14 03/11/15 [facility] [address] [place] [address] Keri Elias PCP - General Family Practice 03/12/15 9 MD Isaías Glez Mitchell PCP - General Family Practice 11/14/18 04/02/20 MD Stevie Karen Veliz, PCP - General Family Medicine 04/03/20 [address] [place] [address] Bebeto Roth MD Orthopedics 07/09/[address] [address] Astrid Rios PA-C Physician Hourly Sign Language Interpreter Physician Hourly Sign Language Interpreter - 07/09/14 Surgical Francisco Metz Assigned PCP 07/04/19 02/01/20 MD Stevie [address] [place] [address] Kenton Katz Assigned PCP 02/02/20 08/27/20 MD Feliberto NO INFO AVAILABLE Kenton Katz Assigned Endocrinology 08/28/20 07/23/21 MD Feliberto Provider NO INFO AVAILABLE Karen Veliz, Assigned PCP 08/28/20[address] [place] [address] documented as of this encounter
--- OUTSIDE RECORDS SUMMARY | 2021-12-22 08:44 | XMS_ITS | Encounter Summary ---
:1980 Author Organization [place] Address [address] [facility] [place] [address] Care Team Providers Name Role Phone Andreas Patel MD Primary Care Provider Caitlin Ballesteros MD Primary Care Provider Lisa Dewitt DO Primary Care Provider Bebeto Roth MD Unavailable Astrid Rios PA-C Unavailable [facility] Primary Care Provider + Keri Elias MD Primary Care Provider Unavailable Francisco Metz MD Primary Care Provider [phone] Francisco Metz MD Unavailable [phone] Kenton Katz MD Unavailable Unavailable Karen Veliz DO Primary Care Provider Kenton Katz MD Unavailable Unavailable Karen Veliz DO Unavailable Encounter Details Date Type Department Care Team Description 09/22/2011 Office Visit-P INTERFACE P DEPT Nora Boyer MD [facility] [address] [place] [address] (Wo rk) Social History Tobacco Use Types Packs/Day Years Used Date Smoking Tobacco: Never Alcohol Use Standard Drinks/Week Comments No 0 (1 standard drink = 0.6 oz pure alcoho l) Sex Assigned at Date Recorded Not on file documented as of this encounter Progress Notes Aditi Boyer MD - 09/22/2011 2:00 PM CDT Hands And Dial Inspector: Aditi Boyer Status: Final Encounter: 2011-09-22 14:00:00.000 [...] By: Aditi Boyer M.D.; 09/26/2011 2:06 PM CONTROL ROOM TENDER. documented in this encounter Plan of Treatment Not on filedocumented as of this encounter Visit Diagnoses Not on filedocumented in this encounter Care Teams Fitting Room Checker Relationship Specialty Start Date End Date Andreas Patel MD PCP - General 10/05/11 10/07/11 [facility] [address] [place] [address] Caitlin Ballesteros MD PCP - General 10/08/11 08/11/13 Lisa Dewitt DO PCP - General 08/12/13 07/15/14 [facility] [address] [place], [place] [phone] Clinic - [facility] PCP - General 07/16/14 03/11/15 [facility] [address] [place], [place] [phone] Keri Elias PCP - General Family Practice 03/12/15 9 MD Isaías Glez Mitchell PCP - General Family Practice 11/14/18 04/02/20 MD Stevie Karen Veliz PCP - General Family Medicine 04/03/20 DO [address] [place] [id number] Bebeto Roth MD Orthopedics 07/09/[address] [address] Astrid Rios PA-C Physician Roll Bucker Physician Roll Bucker - 07/09/14 Surgical Francisco Metz Assigned PCP 07/04/19 02/01/20 MD Stevie [address] [place] [id number] Kenton Katz Assigned PCP 02/02/20 08/27/20 MD Feliberto NO INFO AVAILABLE Kenton Katz Assigned Endocrinology 08/28/20 07/23/21 MD Feliberto Provider NO INFO AVAILABLE Karen Veliz, Assigned PCP 08/28/[address] [place] [address] documented as of this encounter
--- OUTSIDE RECORDS SUMMARY | 2021-12-22 08:44 | XMS_ITS | Encounter Summary ---
:1980 Author Organization [place] Address [facility] [place] [address] Care Team Providers Name Role Phone Unavailable Primary Care Provider Unavailable Encounter Details Date Type Department Care Team Description 09/08/2011 Results Only INTERFACED REPORT Andreas Patel MD [facility] [address] [place] [address] (Wo rk) Social History Tobacco [...] B strep PCR (09/08/2011 4:47 PM CDT) [facility] Method Time Signature Group B Strep Vaginal [facility] PCR Spec [place] Rectal Group B Strep Positive: GBS DNA detected, presumed positive for GBS. [facility] PCR Assay performed on incubated broth culture of specimen [facility] [email or web address] MICROBIOLOGY SmartCycler(R) real-time PCR. Specimen Anatomical Collection Method Collection Time Receive d Time (Source) Location / / Volume Laterality 09/08/2011 4:47 PM 2 4:52 CDT PM CDT Andreas Patel MD LAB - MICRO GENERAL ORDERABL ES Performing Organization Address City/State/ZIP Code Phon e Number [facility] [address] [place] [address] [facility] MICROBIOLOGY documented in this encounter Visit Diagnoses Not on filedocumented in this encounter
--- OUTSIDE RECORDS SUMMARY | 2021-12-22 08:44 | XMS_ITS | Encounter Summary ---
:1980 Author Organization [place] Address [address] [facility] [place] [address] Care Team Providers Name Role Phone Andreas Patel MD Primary Care Provider Caitlin Ballesteros MD Primary Care Provider Lisa Dewitt DO Primary Care Provider Bebeto Roth MD Unavailable Astrid Rios PA-C Unavailable [facility] Primary Care Provider + Keri Elias MD Primary Care Provider Unavailable Francisco Metz MD Primary Care Provider [phone] Francisco Metz MD Unavailable [phone] Kenton Katz MD Unavailable Unavailable Karen Veliz DO Primary Care Provider Kenton Katz MD Unavailable Unavailable Karen Veliz DO Unavailable Encounter Details Date Type Department Care Team Description 09/08/2011 Office Visit-P INTERFACE P DEPT Greta Patel v, MD [facility] [address] [place] [address] (Wo rk) Social History Tobacco Use Types Packs/Day Years Used Date Smoking Tobacco: Never Assessed Sex Assigned at Date Recorded Not on file documented as of this encounter Progress Notes Andreas Patel MD - 09/08/2011 3:00 PM CDT Decorating Inspector: Andreas Patel Status: Amended, Unsigned Encounter: 2011-09-08 15:00:00.000 Type: FM Ultrasound ECT CONSTRUCTION MANAGER documented in this encounter Plan of Treatment Not on filedocumented as of this encounter Visit Diagnoses Not on filedocumented in this encounter Care Teams Digital Producer Relationship Specialty Start Date End Date Andreas Patel MD PCP - General 10/05/11 10/07/11 [facility] [address] [place] [address] Caitlin Ballesteros MD PCP - General 10/08/11 08/11/13 Lisa Dewitt DO PCP - General 08/12/13 07/15/14 [facility] [address] [place] [address] Clinic - [facility] PCP - General 07/16/14 03/11/15 [facility] [address] [place] [address] Keri Elias PCP - General Family Practice 03/12/15 9 MD Isaías Glez Mitchell PCP - General Family Practice 11/14/18 04/02/20 MD Stevie Karen Veliz PCP - General Family Medicine 04/03/20 [address] [place] [address] Bebeto Roth MD Orthopedics 07/09/14 [facility] [place] [address] [id number] Astrid Rios PA-C Physician Plate Molder Physician Plate Molder - 07/09/14 Surgical Francisco Metz Assigned PCP 07/04/19 02/01/20 MD Stevie [address] [place] [address] Kenton Katz Assigned PCP 02/02/20 08/27/20 MD Feliberto NO INFO AVAILABLE Kenton Katz Assigned Endocrinology 08/28/20 07/23/21 MD Feliberto Provider NO INFO AVAILABLE Karen Veliz, Assigned PCP 08/28/20 DO [address] [place], [place] [phone] documented as of this encounter
--- OUTSIDE RECORDS SUMMARY | 2021-12-22 08:44 | XMS_ITS | Encounter Summary ---
:1980 Author Organization [place] Address [address] [facility] [address] Care Team Providers Name Role Phone Andreas Patel MD Primary Care Provider Caitlin Ballesteros MD Primary Care Provider Lisa Dewitt DO Primary Care Provider Bebeto Roth MD Unavailable Astrid Rios PA-C Unavailable [facility] Primary Care Provider + Keri Elias MD Primary Care Provider Unavailable Francisco Metz MD Primary Care Provider [phone] Francisco Metz MD Unavailable [phone] Kenton Katz MD Unavailable Unavailable Karen Veliz DO Primary Care Provider Kenton Katz MD Unavailable Unavailable Karen Veliz DO Unavailable Encounter Details Date Type Department Care Team Description 09/30/2011 [facility] Angela Lyons [address] [place], [place] [phone] Social History Tobacco Use [...] on filedocumented in this encounter Care Teams Leak Gang Supervisor Relationship Specialty Start Date End Date Andreas Patel MD PCP - General 10/05/11 10/07/11 [facility] [address] [place], [place] [phone] Caitlin Ballesteros MD PCP - General 10/08/11 08/11/13 Lisa Dewitt DO PCP - General 08/12/13 07/15/14 [facility] [address] [place], [place] [phone] Clinic - [facility] PCP - General 07/16/14 03/11/15 [facility] [address] [place], [place] [phone] Keri Elias PCP - General Family Practice 03/12/15 9 MD Isaías Glez Mitchell PCP - General Family Practice 11/14/18 04/02/20 MD Stevie Karen Veliz, PCP - General Family Medicine 04/03/20 DO [address] [place], [place] [phone] Bebeto Roth MD Orthopedics 07/09/14 [facility] [place] [address] [id number] Astrid Rios PA-C Physician Optometrist President/Practice Owner Physician Optometrist President/Practice Owner - 07/09/14 Surgical Francisco Metz Assigned PCP 07/04/19 02/01/20 MD Stevie [address] [place], [place] [address] Kenton Katz Assigned PCP 02/02/20 08/27/20 MD Feliberto NO INFO AVAILABLE Kenton Katz Assigned Endocrinology 08/28/20 07/23/21 MD Feliberto Provider NO INFO AVAILABLE Karen Veliz, Assigned PCP 08/28/20 DO [address] [place] [address] documented as of this encounter
--- OUTSIDE RECORDS SUMMARY | 2021-12-22 08:44 | XMS_ITS | Encounter Summary ---
:1980 Author Organization [place] Address [address] [place] [address] Care Team Providers Name Role Phone Andreas Patel MD Primary Care Provider Caitlin Ballesteros MD Primary Care Provider Lisa Dewitt DO Primary Care Provider Bebeto Roth MD Unavailable Astrid Rios PA-C Unavailable [facility] Primary Care Provider + Keri Elias MD Primary Care Provider Unavailable Francisco Metz MD Primary Care Provider [phone] Francisco Metz MD Unavailable [phone] Kenton Katz MD Unavailable Unavailable Encounter Details Date Type Department Care Team Description 08/04/2011 PRE VISIT UR ANESTHESIA Susana Quinteros MD [facility], [address] [place], [place] [phone] [place] [address] (Wo rk) Social History Tobacco Use Types Packs/Day Years Used Date Smoking Tobacco: Never Assessed Sex Assigned at Date Recorded Not on file COVID-19 Exposure Response Date Recorded In the last month, have you been in contact Unable to assess 01/23/2020 7:04 AM GREEN BUILDING ENGINEER with someone who was confirmed or suspected to have Coronavirus / COVID-19? documented as of this encounter Plan of Treatment Not on filedocumented as of this encounter Visit Diagnoses Not on filedocumented in this encounter Care Teams Inventory Assistant Relationship Specialty Start Date End Date Andreas Patel MD PCP - General 10/05/11 10/07/11 [facility] [address] [place], [place] [phone] Caitlin Ballesteros MD PCP - General 10/08/11 08/11/13 Lisa Dewitt DO PCP - General 08/12/13 07/15/14 [facility] [address] [place], [place] [phone] Clinic - Angela Laboy PCP - General 07/16/14 6 [facility] [address] [place], [place] [phone] Keri Elias PCP - General Family Practice 03/12/15 9 MD Isaías Glez Mitchell PCP - General Family Practice 11/14/18 04/02/20 MD Stevie Bebeto Roth MD Orthopedics 07/09/[address] [id number] Astrid Rios PA-C Physician Car Top Bolter Physician Car Top Bolter - 07/09/14 Surgical Francisco Metz Assigned PCP 07/04/19 02/01/20 MD Stevie [address] [place], [place] [address] Kenton Katz Assigned PCP 02/02/20 08/27/20 MD Feliberto NO INFO AVAILABLE documented as of this encounter
--- OUTSIDE RECORDS SUMMARY | 2021-12-22 08:44 | XMS_ITS | Encounter Summary ---
:1980 Author Organization [place] Address [address] [facility] [place] [address] Care Team Providers Name Role Phone Andreas Patel MD Primary Care Provider Caitlin Pozo MD Primary Care Provider Lisa Dewitt DO Primary Care Provider Bebeto Roth MD Unavailable Astrid Rios PA-C Unavailable [facility] Primary Care Provider + Keri Elias MD Primary Care Provider Unavailable Francisco Metz MD Primary Care Provider [phone] Francisco Metz MD Unavailable [phone] Kenton Katz MD Unavailable Unavailable Karen Veliz DO Primary Care Provider Kenton Katz MD Unavailable Unavailable Karen Veliz DO Unavailable Encounter Details Date Type Department Care Team Description 09/01/2011 Office Visit-[facility] INTERFACE P DEPT Social History Tobacco Use Types Packs/Day Years Used Date Smoking Tobacco: Never Assessed Sex Assigned at Date Recorded Not on file documented as of this encounter Progress Notes SY UMP ULTRASOUND - 09/01/2011 2:00 PM CDT [place] Equipment Repairer: ADOLFO CURRY Status: Amended, Final Encounter: 2011-09-01 14:00:00.000 Type: FM Ultrasound Active Problems Acne Vulgaris (706.1) Anxiety (300.00) Care Coordinated By; Tier 0 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 US 2nd & 3rd Trimester Ultrasound Report Primary MD: Dr Pozo Grinder Needle Tip: Latesha Harley Indications: Growth on prev. u/s = 5% P: 2 Machine: Adtrade 5 Pro FHR: 152 bpm Fluid:Normal TJ: [...] By: August Ontiveros ; 09/07/2011 2:51 PM HVAC INSTALLATION TECHNICIAN. Signature Signed By: Latesha Harley ; 09/01/2011 2:51 PM HVAC INSTALLATION TECHNICIAN. Signed By: August Ontiveros M.D.; 09/07/2011 2:51 PM HVAC INSTALLATION TECHNICIAN; Author. INSTALLATION TECHNICIAN documented in this encounter Plan of Treatment Not on filedocumented as of this encounter Visit Diagnoses Not on filedocumented in this encounter Care Teams Engineering Analyst Relationship Specialty Start Date End Date Andreas Patel MD PCP - General 10/05/11 10/07/11 [facility] 2019 [place] [address] Caitlin Pozo MD PCP - General 10/08/11 08/11/13 Lisa Dewitt DO PCP - General 08/12/13 07/15/14 [facility] [address] [place], [place] [phone] Clinic - [facility], PCP - General 07/16/14 03/11/15 [facility] [address] [place], [place] [phone] Keri Elias PCP - General Family Practice 03/12/15 9 MD Isaías Glez Mitchell PCP - General Family Practice 11/14/18 04/02/20 MD Stevie Karen Veliz, PCP - General Family Medicine 04/03/20 DO [address] [place], [place] [phone] Bebeto Roth MD Orthopedics 07/09/[address] [facility] [place] [address] [id number] Astrid Rios PA-C Physician Analytical Research Program Manager Physician Analytical Research Program Manager - 07/09/14 Surgical Francisco Metz Assigned PCP 07/04/19 02/01/20 MD Stevie [address] [place] [address] Kenton Katz Assigned PCP 02/02/20 08/27/20 MD Feliberto NO INFO AVAILABLE Kenton Katz Assigned Endocrinology 08/28/20 07/23/21 MD Feliberto Provider NO INFO AVAILABLE Karen Veliz, Assigned PCP 08/28/20 DO [address] [place], [place] [phone] documented as of this encounter
--- OUTSIDE RECORDS SUMMARY | 2021-12-22 08:44 | XMS_ITS | Encounter Summary ---
:1980 Author Organization [place] Address [address] [place] [address] Care Team Providers Name Role Phone Unavailable Primary Care Provider Unavailable Encounter Details Date Type Department Care Team Description 07/19/2011 Historic Results [facility] Leanne Navarro Kittanning MD Андр[address] [place], [place] [phone] (Work) [place] [address] Social History Tobacco Use Types Packs/Day Years [...] 1 Hr (LabDAQ) (07/19/2011 10:56 AM CDT) [facility] gist Method Time Signature Glu Gest [...]
--- OUTSIDE RECORDS SUMMARY | 2021-12-22 08:44 | XMS_ITS | Encounter Summary ---
:1980 Author Organization [place] Address [address] [facility] [place] [address] Care Team Providers Name Role Phone Unavailable Primary Care Provider Unavailable Encounter Details Date Type Department Care Team Description 09/22/[address] [facility] Juanis Boyer, Birth[facility] MD [address] [place] [address] 9275 [facility] [phone] [place] [address] (Wo rk) Social History Tobacco [...] handout). * Call your doctor or nurse rn registry if your baby is moving less than [...] from the original note were not included. [facility] 1st Ob notel Azul Garg Age: [age] year old Date of : 1980 Date of Admission: 09/22/2011 5:00 PM History of Present Illness (Resident / Clinician): Azul Garg is a patient of Dr. Loja from [facility]. She is a 31 year old [id number] is 39+0w with VINCENT 09/29/2011 that is consistent with 04/28/2011 dating ultrasound, as patient is unsure about her LMP. [facility]- when patient complained of decreased movement over [...] Value: Negative for C. trachomatis rRNA by certified lactation counselor mediated amplification. A negative result by certified lactation counselor mediated amplification does not preclude the presence of C. trachomatis infection because results are dependent on proper and adequate collection, absence of inhibitors, and suffi cient rRNA to be detected. 06/21/2011 GCPCRT Value: Negative for N. gonorrhoeae rRNA by certified lactation counselor mediated amplification. A negative result by certified lactation counselor mediated amplification does not preclude the presence of N. gonorrhoeae infection because results are dependent on proper and adequate collection, absence of inhibitors, and suffi cient rRNA to be detected. 06/21/2011 TREPAB Negative 04/20/2011 RUBELLAABIGG 48 04/20/2011 HGB 9.5* 10/16/2009 HIV Negative 04/20/2011 GBS Value: Positive: GBS DNA detected, presumed positive for GBS. Assay performed on incubated broth culture of specimen using Sha-ShaCycler(R) real-time PCR. 09/08/2011 Obstetrical History: She is [...] notify Dr. Patel or Dr. Patel from [facility] Miracle Teran MD [facility] Family Medicine PGY 1 Pager No. [phone] documented in this encounter H&P Notes Unknown, [...] big movements). Denies rom/bldg/regular contractions.I: EFM and [place] MD cynthia notified of pt arrival A: [...]
--- OUTSIDE RECORDS SUMMARY | 2021-12-22 08:44 | XMS_ITS | Encounter Summary ---
:1980 Author Organization [place] Address [facility] [place] [address] Care Team Providers Name Role Phone Unavailable Primary Care Provider Unavailable Encounter Details Date Type Department Care Team Description 08/18/2011 Historic Results [facility] [address] [place] [address], [address] [place] [phone] (Wo rk) Social History Tobacco Use Types [...] 1:39 PM 2 1:39 CDT PM CDT [facility] - LABDAQ Performing Organization Address City/State/ZIP Code Phon e Number UMP HISTORICAL RESULTS documented in this encounter Visit Diagnoses Not on filedocumented in this encounter
--- OUTSIDE RECORDS SUMMARY | 2021-12-22 08:44 | XMS_ITS | Encounter Summary ---
:1980 Author Organization [place] Address [address] [facility] [place] [address] Care Team Providers Name Role Phone Unavailable Primary Care Provider Unavailable Encounter Details Date Type Department Care Team Description 09/30/2011 Hospital Encounter M [facility] Cindy Pope MD Imaging [facility] [address] [facility] [place] [place] [address] [facility] [address] [place] [address] (Wo rk) Social History Tobacco [...]
--- OUTSIDE RECORDS SUMMARY | 2021-12-22 08:44 | XMS_ITS | Encounter Summary ---
:1980 Author Organization [place] Address [address] [facility] [place] [address] Care Team Providers Name Role Phone Andreas Patel MD Primary Care Provider Caitlin Ballesteros MD Primary Care Provider Lisa Dewitt DO Primary Care Provider Bebeto Roth MD Unavailable Astrid Rios PA-C Unavailable [facility] Primary Care Provider + Keri Elias MD Primary Care Provider Unavailable Francisco Metz MD Primary Care Provider [phone] Francisco Metz MD Unavailable [phone] Kenton Katz MD Unavailable Unavailable Karen Veliz DO Primary Care Provider Kenton Katz MD Unavailable Unavailable Karen Veliz DO Unavailable Encounter Details Date Type Department Care Team Description 10/06/2011 Office Visit-P INTERFACE P DEPT Greta Patel v, MD [facility] [address] [place], [place] [phone] (Wo rk) Social History Tobacco Use Types Packs/Day Years Used Date Smoking Tobacco: Never Alcohol Use Standard Drinks/Week Comments No 0 (1 standard drink = 0.6 oz pure alcoho l) Sex Assigned at Date Recorded Not on file documented as of this encounter Progress Notes Andreas Patel MD - 10/06/2011 1:20 PM CDT Jacket Preparer: Jason Patelurav Status: Signed Encounter: 2011-10-06 13:20:00.000 Type: FM Visit Reason For Visit This 31 year patient presents for {{{[ ]}}}[ preventive health visit ][ diabetes visit ]. {{{Food Manager used this visit; [ Hmong ][ Grenadian ][ Welsh ][ Oromo ][ Yakut ][ Other: ]}}} {{{Name of local company truck driver [ ]. Food Manager's Phone number: [ [phone] ][ [phone] ][ [phone] ][ [phone] ]-[ ]-[ ] }}} {{{Minor without Guardian. Verbal consent obtained from [ Mother ] [ Father ] [ ] by restaurant front manager staff [ ]. Contact number: [ [phone] ] [ [phone] ] [ [phone] ][ [phone] ] [ ] }}} {{{PHQ2 completed and [...] OB BIOPHYS PROFILE W/O NST Principal Result Food Manager: OSWALDO ARRIAGA PROFESSOR&& Biophysical profile. 09/30/11. Comparisons: [...] and agree with the findings. Performed at: [facility]. Plan {{{Patient participated in and [ agrees ][ disagrees ] with today's plan.}}} {{{Patient's family participated in and [ agree ][ disagree ] with today's plan.}}} {{{Patient and family participated in and [ agree ][ disagree ] with today's plan.}}}. Signature Signed By: Andreas Patel M.D.,Resident; 10/10/2011 11:03 AM EMAIL ADMINISTRATOR. documented in this encounter Plan of Treatment Not on filedocumented as of this encounter Visit Diagnoses Not on filedocumented in this encounter Care Teams Wind Up Worker Relationship Specialty Start Date End Date Andreas Patel MD PCP - General 10/05/11 10/07/11 [facility] [address] [place], [place] [phone] Caitlin Ballesteros MD PCP - General 10/08/11 08/11/13 Lisa Dewitt DO PCP - General 08/12/13 07/15/14 [facility] [address] [place], [place] [phone] Clinic - [facility] PCP - General 07/16/14 03/11/15 [facility] [address] [place] [address] (Fax) Keri Elias PCP - General Family Practice 03/12/15 9 MD Isaías Glez Mitchell PCP - General Family Practice 11/14/18 04/02/20 MD Stevie Karen Veliz, PCP - General Family Medicine 04/03/20 2019 [place] [address] (Fax) Bebeto Roth MD Orthopedics 07/09/[address] [place], [place] [phone] Astrid Rios PA-C Physician Formal Wear Rental Clerk Physician Formal Wear Rental Clerk - 07/09/14 Surgical Francisco Metz Assigned PCP 07/04/19 02/01/20 MD Stevie [address] [place] [address] Kenton Katz Assigned PCP 02/02/20 08/27/20 MD Feliberto NO INFO AVAILABLE Kenton Katz Assigned Endocrinology 08/28/20 07/23/21 MD Feliberto Provider NO INFO AVAILABLE Karen eVliz, Assigned PCP 08/28/20 DO [facility] [address], [place] [address] documented as of this encounter
--- OUTSIDE RECORDS SUMMARY | 2021-12-22 08:44 | XMS_ITS | Encounter Summary ---
:1980 Author Organization [place] Address [address] [facility] [place] [address] Care Team Providers Name Role Phone Andreas Patel MD Primary Care Provider Caitlin Ballesteros MD Primary Care Provider Lisa Dewitt DO Primary Care Provider Bebeto Roth MD Unavailable Astrid Rios PA-C Unavailable [facility] Primary Care Provider + Keri Elias MD Primary Care Provider Unavailable Francisco Metz MD Primary Care Provider [phone] Francisco Metz MD Unavailable [phone] Kenton Katz MD Unavailable Unavailable Karen Veliz DO Primary Care Provider Kenton Katz MD Unavailable Unavailable Karen Veliz DO Unavailable Encounter Details Date Type Department Care Team Description 07/14/2011 Office Visit-[facility] INTERFACE P DEPT Social History Tobacco Use Types Packs/Day Years Used Date Smoking Tobacco: Never Assessed Sex Assigned at Date Recorded Not on file documented as of this encounter Progress Notes SY UMP ULTRASOUND - 07/14/2011 9:10 AM CDT Backend Java Developer: ADOLFO CURRY Status: Amended, Final Encounter: 2011-07-14 09:10:00.000 Type: FM Ultrasound Active Problems Acne Vulgaris (706.1) Anxiety (300.00) Care Coordinated By; Tier 0 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 US 2nd & 3rd Trimester Ultrasound Report Primary MD: Dr Navarro Dairy Bacteriologist: Latesha Harley Indications: size less than dates P: 2 Machine: Rubysophic 5 Pro FHR: 143 bpm Fluid:Normal TJ: [...] By: August Ontiveros ; 07/19/2011 9:17 AM CLIENT BUSINESS MANAGER. Signature Signed By: Latesha Harley ; 07/14/2011 9:45 AM CLIENT BUSINESS MANAGER. Signed By: August Ontiveros M.D.; 07/19/2011 9:17 AM CLIENT BUSINESS MANAGER; Author. NT BUSINESS MANAGER documented in this encounter Plan of Treatment Not on filedocumented as of this encounter Visit Diagnoses Not on filedocumented in this encounter Care Teams Maintenance Truck Driver Relationship Specialty Start Date End Date Andreas Patel MD PCP - General 10/05/11 10/07/11 [facility] [address] [place] [address] Caitlin Ballesteros MD PCP - General 10/08/11 08/11/13 Lisa Dewitt DO PCP - General 08/12/13 07/15/14 [facility] [address] [place], [place] [phone] Clinic - [facility] PCP - General 07/16/14 03/11/15 [facility] [address] [place] [address] Keri Elias PCP - General Family Practice 03/12/15 9 MD Isaías Glez Mitchell PCP - General Family Practice 11/14/18 04/02/20 MD Stevie Karen Veliz, PCP - General Family Medicine 04/03/20 DO [address] [place] [address] Bebeto Roth MD Orthopedics 07/09/[address] [place] [id number] Astrid Rios PA-C Physician Engineering Lecturer Physician Engineering Lecturer - 07/09/14 Surgical Francisco Metz Assigned PCP 07/04/19 02/01/20 MD Stevie [address] [place] [address] Kenton Katz Assigned PCP 02/02/20 08/27/20 MD Feliberto NO INFO AVAILABLE Kenton Katz Assigned Endocrinology 08/28/20 07/23/21 MD Feliberto Provider NO INFO AVAILABLE Karen Veliz, Assigned PCP 08/28/20 DO [address] [place] [address] documented as of this encounter
--- OUTSIDE RECORDS SUMMARY | 2021-12-22 08:44 | XMS_ITS | Encounter Summary ---
:1980 Author Organization [place] Address [address] [facility] [place] [address] Care Team Providers Name Role Phone Andreas Patel MD Primary Care Provider Caitlin Ballesteros MD Primary Care Provider Lisa Dewitt DO Primary Care Provider Bebeto Roth MD Unavailable Astrid Rios PA-C Unavailable [facility] Primary Care Provider + Keri Elias MD Primary Care Provider Unavailable Francisco Metz MD Primary Care Provider [phone] Francisco Metz MD Unavailable [phone] Kenton Katz MD Unavailable Unavailable Karen Veliz DO Primary Care Provider Kenton Katz MD Unavailable Unavailable Karen Veliz DO Unavailable Encounter Details Date Type Department Care Team Description 09/26/2011 Office Visit-[facility] INTERFACE P DEPT Social History Tobacco Use Types Packs/Day Years Used Date Smoking Tobacco: Never Alcohol Use Standard Drinks/Week Comments No 0 (1 standard drink = 0.6 oz pure alcoho l) Sex Assigned at Date Recorded Not on file documented as of this encounter Progress Notes SY UMP ULTRASOUND - 09/26/2011 2:07 PM CDT Physical Chemistry Teacher: ADOLFO CURRY Status: Unsigned Encounter: 2011-09-26 14:07:00.000 [...] on filedocumented in this encounter Care Teams Produce Department Manager Relationship Specialty Start Date End Date Andreas Patel MD PCP - General 10/05/11 10/07/11 [facility] [address] [place] [address] Caitlin Ballesteros MD PCP - General 10/08/11 08/11/13 Lisa Dewitt DO PCP - General 08/12/13 07/15/14 [facility] [address] [place], [place] [id number] Clinic - [place], PCP - General 07/16/14 03/11/15 [facility] [address] [place] [address] Keri Elias PCP - General Family Practice 03/12/15 9 MD Isaías Glez Mitchell PCP - General Family Practice 11/14/18 04/02/20 MD tSevie Karen Veliz, PCP - General Family Medicine 04/03/20 DO [address] [place], [place] [id number] Bebeto Roth MD Orthopedics 07/09/14 [facility] [place] [address] Astrid Rios PA-C Physician Air Quality Chemist Physician Air Quality Chemist - 07/09/14 Surgical Francisco Metz Assigned PCP 07/04/19 02/01/20 MD Stevie [address] [place] [address] Kenton Katz Assigned PCP 02/02/20 08/27/20 MD Feliberto NO INFO AVAILABLE Kenton Katz Assigned Endocrinology 08/28/20 07/23/21 MD Feliberto Provider NO INFO AVAILABLE Karen Veliz, Assigned PCP 08/28/20 DO [address] [place] [address] documented as of this encounter
--- OUTSIDE RECORDS SUMMARY | 2021-12-22 08:44 | XMS_ITS | Encounter Summary ---
:1980 Author Organization [place] Address [address] [place] [address]. [place] [address] Care Team Providers Name Role Phone Unavailable Primary Care Provider Unavailable Encounter Details Date Type Department Care Team Description 09/30/2011 Orders Only M [facility] Angela Holguin IUGR (intrauterine growth Imaging restriction) (Primary Dx) [address] [place] [id number] Social History Tobacco Use Types Packs/Day [...] this encounter Results US BIOPHYS PROFILE W/O [id number] PERFORMED (09/30/2011 2:02 PM CDT) Anatomical Region [...]
--- OUTSIDE RECORDS SUMMARY | 2021-12-22 08:44 | XMS_ITS | Encounter Summary ---
:1980 Author Organization [place] Address [address] [facility] [place] [address] Care Team Providers Name Role Phone Unavailable Primary Care Provider Unavailable Encounter Details Date Type Department Care Team Description 09/08/2011 Results Only INTERFACED REPORT Andreas Patel MD [facility] [address] [place], [place] [phone] (Wo rk) Social History Tobacco Use Types [...] Component Value Ref Test Analysis Performed At [facility] Range Method Time Signature Specimen Vaginal Rectal [...] e Number [facility] [address] [place] [address] [facility] MICROBIOLOGY documented in this encounter Visit Diagnoses Not on filedocumented in this encounter
--- OUTSIDE RECORDS SUMMARY | 2021-12-22 08:44 | XMS_ITS | Encounter Summary ---
:1980 Author Organization [place] Address [facility] [place] [address] Care Team Providers Name Role Phone Caitlin Ballesteros MD Primary Care Provider Reason for Visit Reason Comments Minor Procedure Oneida has mole/skintag on t he left shoulder and left outer knee Encounter Details Date Type Department Care Team Description 11/22/2012 Office Visit [facility] Jada, Dermatofibro [facility] Anthony Glez MD thigh (Primary Dx) [address], [address] [place], [place] [address] Social History Tobacco Use Types [...] hear from us, please call us at [phone] and let us know that you haven't received your results. Thank you for coming to [facility]. Lab Testing: If you had lab testing today and your results are reassuring or normal they will be mailed to you or sent through [employer] within 7 days. If the lab tests need quick action we will call you with the results. The phone number we will call with results is # [phone] (home) . If this is not the [...] please call [facility] during normal business hours [phone] (8- 5:00 M-F) Medical Concerns: If you have urgent medical concerns please call [phone] at any time of the day. If you have a medical emergency please call 911. Again thank you for choosing [facility] and please let us know how [...] of care Supervising Physician: Anthony Elias MD [facility] Caitlin Ballesteros MD - 11/22/2012 1:46 PM CDT [facility] Skin Biopsy Procedure Note Azul Garg is [...] Component Value Ref Test Analysis Performed At [facility] gist Range Method Time Signature Copath Report Patient Name: AZUL MCCLELLAN MR#: [id number] Specimen #: [id number] Collected: 11/22/2012 Received: 11/23/2012 Reported: 11/26/2012 13:48 [...] specime n consists of an unoriented irregular mathew tissue fragment measuring 0.5 cm in greatest dimension. ??Bisected and entirely submitted in one casette. ??Tricia Henry MD/ MICROSCOPIC: Microscopic evaluation is performed. Ajith Acevedo MD/romulo 11/26/12 TESTING LAB LOCATION: [facility] [address] [address] COLLECTION SITE: Client: [facility] Location: FA (B) Specimen (Source) Anatomical Collection Method Collection Time Re ceived Time Location / / Volume Laterality Lower limb 11/22/2012 1:30 11/23/2012 8 :36 structure (body PM CDT AM CDT structure) Anthony Elias MD [facility] - [facility] Organization Address City/State/ZIP Code Phon e Number [place] documented in this encounter Visit Diagnoses Diagnosis Dermatofibroma of left thigh - Primary Benign neoplasm of skin of lower limb, i ncluding hip documented in this encounter Care Teams Hotel Manager Relationship Specialty Start Date End Date Caitlin Ballesteros MD PCP - General 10/08/11 08/11/13 documented as of this encounter
--- OUTSIDE RECORDS SUMMARY | 2021-12-22 08:44 | XMS_ITS | Encounter Summary ---
:1980 Author Organization [place] Address [address] [facility] [place] [address] Care Team Providers Name Role Phone Caitlin Ballesteros MD Primary Care Provider Reason for Visit Reason Comments Pain Bladder frequency, urgency, pain x1 week; took Uristat once per day Encounter Details Date Type Department Care Team Description 06/21/2012 Office Visit [facility] Caitlin Ballesteros MD UTI (urinary tract Medicine Clinic [facility] infection) (Primary [address], PRACTICE Dx) [address] [facility] [phone] (Wo rk) Social History Tobacco Use Types [...] PM CDT Thank you for coming to [facility]. Lab Testing: If you had lab testing today and your results are reassuring or normal they will be mailed to you or sent through [employer] within 7 days. If the lab tests need quick action we will call you with the results. The phone number we will call with results is # [phone] (home) . If this is not the best numberplease call our clinic and change the number. Medication Refills: If you need any refills please call your pharmacy and they will contact us. If you need to product picker your refill at a new pharmacy, please contact the new pharmacy directly. The new pharmacy will help you get your medications transferred faster. Scheduling: If you have any concerns about today's visit or wish to schedule another appointment please call ouroffice during normal business hours [phone] (8- 5:00 M-F) Medical Concerns: If you have urgent medical concerns please call [phone] at any time of the day. If you have a medical emergency please call 911. Again thank you for choosing [facility] and please let us know how we can best partner with you to improve you and your family's health. documented in this encounter Progress Notes Jazz Duncan MD - 06/21/2012 2:35 PM CDT Preceptor Attestation: Patient's case reviewed and discussed with resident. I agree with written assessment and plan of care Supervising Physician: Jazz Duncan MD MD [facility] Caitlin Ballesteros MD - 06/21/2012 2:17 [...] ??? fluticasone (FLONASE) 50 MCG/ACT nasal spray [place] 2 sprays into both nostrils daily. ??? loratadine (CLARITIN) 10 MG tablet Take 1 tablet by mouth daily as needed. Allergies Allergen Reactions ??? Seasonal Allergies Results for orders placed in visit on 06/21/12 (from the past 24 hour(s)) URINALYSIS, MICRO IF (LABDAQ) Component Value Range Specific [place] Urine 1.010 1.005 - 1.030 pH Urine [...] in this encounter Results Urine Microscopic (UA) ([facility]) (06/21/2012 2:16 PM CDT) Analysis Performed At Patho logist Time Signature WBC Urine 5-10 /hpf [facility] RBC Urine None /hpf [facility] Epithelial 2-5 /lpf [facility] Cells UR CLINIC LAB Mucous Urine None [facility] Casts Urine None /lpf [facility] Crystal Urine None /lpf [facility] Bacteria Wet Moderate [facility] Prep CLINIC LAB Specimen Anatomical Collection Method Collection Time Receive d Time (Source) Location / / Volume Laterality Urine specimen 06/21/2012 2:16 PM 013 2:16 (specimen) CDT PM CDT Jazz Duncan MD LAB - LABDAQ Performing Organization Address City/State/ZIP Code Phon e Number [facility] [address] [place] [phone] LABDAQ [facility] [address] [place] [address] Urine culture (06/21/2012 2:08 PM CDT) Component Value Ref Test Analysis Performed At Patholo gist Range Method Time Signature Specimen Midstream Urine [facility] Special Specimen received [facility] Requests in preservative MICROBIOLOGY Culture Micro 10 [...] Phon e Number [facility] [address] [place] [address] [facility] FUM MICROBIOLOGY (ABNORMAL) Urinalysis, Micro If (UA) ([facility]) (06/21/2012 2:08 PM CDT) [facility] Method Time Signature Specific [place] 1.010 1.[address] [facility] 1.030 CLINIC LAB pH Urine 6.5 4.5 - 8.0 [facility] Leukocyte 500/ul 2+ [facility] Esterase UR (A) CLINIC LAB Nitrite Urine neg [facility] Protein UR neg [facility] CLINIC LAB Glucose Urine norm [facility] CLINIC LAB Ketones Urine neg [facility] Urobilinogen norm [facility] mg/dL CLINIC LAB Bilirubin UR neg [facility] Blood UR neg [facility] Specimen Anatomical Collection Method Collection Time Receive d Time (Source) Location / / Volume Laterality Urine specimen 06/21/2012 2:08 PM 013 2:08 (specimen) CDT PM CDT Caitlin Ballesteros MD LAB - LABDAQ Performing Organization Address City/State/ZIP Code Phon e Number [facility] [address] [place] [phone] LABDAQ [facility] [address] [place] [address] documented in this encounter Visit Diagnoses Diagnosis UTI (urinary tract infection) - Primary Urinary tract infection, site not specif ied documented in this encounter Care Teams Riding Silks Custodian Relationship Specialty Start Date End Date Caitlin Ballesteros MD PCP - General 10/08/11 08/11/13 documented as of this encounter
--- OUTSIDE RECORDS SUMMARY | 2021-12-22 08:44 | XMS_ITS | Encounter Summary ---
:1980 Author Organization [place] Address [facility] [place] [address] Care Team Providers Name Role Phone Caitlin Ballesteros MD Primary Care Provider Reason for Referral Specialty Diagnoses / Procedures Referred By Contact Refer red To Contact Caitlin Ballesteros MD [address] [place], [place] [address] Referral ID Status Reason Start Date Expiration Date Visits Requ ested Visits Authorized Y CHILDHOOD EDUCATION COORDINATOR Reason for Visit Reason Comments Knee Pain both knees x 3weeks-no injur y Encounter Details Date Type Department Care Team Description 12/22/2011 Office Visit [facility] Family Caitlin Ballesteros MD Knee pain, bilateral (Primary Dx); Medicine Clinic [facility] Contraception management; [address], PRACTICE Acne vulgaris [address] [facility] [place] [address] [phone] (Wo rk) Social History Tobacco Use Types Packs/Day Years Used Date Smoking Tobacco: Never Alcohol Use Standard Drinks/Week Comments No 0 (1 standard drink = 0.6 oz pure alcoho l) Sex Assigned at Date Recorded Not on file documented as of this encounter Last Filed Vital Signs Vital Sign Reading Time Taken Comments Blood Pressure 115/85 12/22/2011 2:06 PM EARLY CHILDHOOD EDUCATION COORDINATOR Pulse 97 12/22/2011 2:06 PM EARLY CHILDHOOD EDUCATION COORDINATOR Temperature 36.9 ??C (98.4 ??F) 12/22/2011 2:06 PM EARLY CHILDHOOD EDUCATION COORDINATOR Respiratory Rate 16 12/22/2011 2:06 PM EARLY CHILDHOOD EDUCATION COORDINATOR Oxygen Saturation - - Inhaled Oxygen Concentration - - Weight 68.9 kg (152 lb) 12/22/2011 2:06 PM EARLY CHILDHOOD EDUCATION COORDINATOR Height 156.8 cm (5' 1.75) 12/22/2011 2:06 PM EARLY CHILDHOOD EDUCATION COORDINATOR Body Mass Index 28.03 12/22/2011 2:06 PM EARLY CHILDHOOD EDUCATION COORDINATOR documented in this encounter Patient Instructions Patient InstructionsCaitlin Ballesteros MD - 12/22/2011 6:38 PM CST Thank you for coming to [facility]. If you had lab testing today and your results are reassuring or normal they will be be mailed to you within 7 days. If the lab tests need quick action we will call you with the results. The phone number we will call with results is # [phone] (home) . If this is not the best numberplease call our clinic and change the number. If you need any refills please call your pharmacy and they will contact us. If you have any concerns about today's visit or wish to schedule another appointment please call ouroffice during normal business hours [phone] (8- 5:30 M-F) If you have urgent medical concerns please call [phone] at any time of the day. If you have a medical emergency please call 911 Again thank you for choosing [facility] and please let us know how we can best partner with youto improve your and your family's health. Referred to [facility] [phone] Referral faxed, [facility] to contact patient directly to schedule Y CHILDHOOD EDUCATION COORDINATOR documented in this encounter Progress Notes Keri Elias MD - 12/22/2011 3:55 PM CST Preceptor Attestation: Patient's case reviewed and discussed with resident and I examined the patient. I agree with writtenassessment and plan of care Supervising Physician: Keri Elias MD MD [facility] Y CHILDHOOD EDUCATION COORDINATOR Caitlin Ballesteros MD - 12/22/2011 2:25 PM [...] idiopathic scoliosis ??? , subsequent ??? Health Long Term ??? Acne vulgaris [...] ??? fluticasone (FLONASE) 50 MCG/ACT nasal spray [place] 2 sprays into both nostrils daily. ??? [...] with the final plan. Caitlin Ballesteros MD Y CHILDHOOD EDUCATION COORDINATOR documented in this encounter Plan of Treatment Scheduled Referrals Name Type Priority Associated Diagnoses Order S jaye PHYSICAL THERAPY REFERRAL Referral Routine Knee pain, bila teral Ordered: 12/22/2011 documented as of this encounter Visit Diagnoses Diagnosis Knee pain, bilateral - Primary Pain in joint, lower leg Contraception management Unspecified contraceptive management Acne vulgaris Other acne documented in this encounter Care Teams Adjutant General Relationship Specialty Start Date End Date Caitlin Ballesteros MD PCP - General 10/08/11 08/11/13 documented as of this encounter
--- OUTSIDE RECORDS SUMMARY | 2021-12-22 08:44 | XMS_ITS | Encounter Summary ---
:1980 Author Organization [place] Address [address] [place] [address] Care Team Providers Name Role Phone Andreas Patel MD Primary Care Provider Caitlin Ballesteros MD Primary Care Provider Lisa Dewitt DO Primary Care Provider Bebeto Roth MD Unavailable Astrid Rios PA-C Unavailable [facility] Primary Care Provider + Keri Elias MD Primary Care Provider Unavailable Francisco Metz MD Primary Care Provider [phone] Francisco Metz MD Unavailable [phone] Kenton Katz MD Unavailable Unavailable Karen Veliz DO Primary Care Provider Kenton Katz MD Unavailable Unavailable Karen Veliz DO Unavailable Encounter Details Date Type Department Care Team Description 09/08/2011 Office Visit-P INTERFACE P DEPT Karel Ontiveros MD 2019 [place] [address] (Wo rk) Social History Tobacco Use Types Packs/Day Years Used Date Smoking Tobacco: Never Assessed Sex Assigned at Date Recorded Not on file documented as of this encounter Progress Notes August Ontiveros MD - 09/08/2011 3:00 PM CDT Primer Charger: Weston August Status: Final Encounter: 2011-09-08 15:00:00.000 Type: FM Ultrasound Active Problems Acne Vulgaris (706.1) Anxiety (300.00) Care Coordinated By; Tier 0 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 US 2nd & 3rd Trimester Ultrasound Report Primary MD: Lesli/Amanda Cut Off Tender Glass: August Ontiveros Indications: size less than dates follow up Machine: FIXO 5 Pro FHR: 150s Fluid:Normal TJ: 14.5 [...] By: August Ontiveros M.D.; 09/09/2011 3:11 PM SIDE HEMMER; Author. HEMMER documented in this encounter Plan of Treatment Not on filedocumented as of this encounter Visit Diagnoses Not on filedocumented in this encounter Care Teams Inspector Packager Relationship Specialty Start Date End Date Andreas Patel MD PCP - General 10/05/11 10/07/11 [facility] 2019 [place] [address] Caitlin Ballesteros MD PCP - General 10/08/11 08/11/13 Lisa Dewitt DO PCP - General 08/12/13 07/15/14 [facility] [address] [place] [address] Clinic - [facility], PCP - General 07/16/14 03/11/15 [facility] [address] [place] [address] Keri Elias PCP - General Family Practice 03/12/15 MD Isaías Glez Mitchell PCP - General Family Practice 11/14/18 04/02/20 MD Stevie Karen Veliz, PCP - General Family Medicine 04/03/20 DO [address] [place] [address] Bebeto Roth MD Orthopedics 07/09/[address] [id number] Astrid Rios PA-C Physician Fryline Attendant Physician Fryline Attendant - 07/09/14 Surgical Francisco Metz Assigned PCP 07/04/19 02/01/20 MD Stevie [address] [place] [address] Kenton Katz Assigned PCP 02/02/20 08/27/20 MD Feliberto NO INFO AVAILABLE Kenton Katz Assigned Endocrinology 08/28/20 07/23/21 MD Feliberto Provider NO INFO AVAILABLE Karen Veliz, Assigned PCP 08/28/20 DO [address] [place] [phone] documented as of this encounter
--- OUTSIDE RECORDS SUMMARY | 2021-12-22 08:44 | XMS_ITS | Encounter Summary ---
:1980 Author Organization [place] Address [facility] [place] [address] Care Team Providers Name Role Phone Unavailable Primary Care Provider Unavailable Encounter Details Date Type Department Care Team Description 09/08/2011 Historic Results [facility] Andreas Patel MD Clinic [facility] [address] [place] [address], [address] [place] [phone] (Wo rk) Social History Tobacco Use Types [...]
--- OUTSIDE RECORDS SUMMARY | 2021-12-22 08:44 | XMS_ITS | Encounter Summary ---
:1980 Author Organization [place] Address [facility] [place] [address] Care Team Providers Name Role Phone Caitlin Ballesteros MD Primary Care Provider Reason for Referral Specialty Diagnoses / Procedures Referred By Contact Refer red To Contact Kenton Hicks MD [place] [address] 5 Referral ID Status Reason Start Date Expiration Date Visits Requ ested Visits Authorized Reason for Visit Reason Comments Mass behind ear and knee for abou t a week Encounter Details Date Type Department Care Team Description 11/13/2012 Office Visit [facility] management (Primary Dx); Medicine Clinic MD Kenton Acne vulgaris; [address] [place] [address] Environmental allergies; [address] [facility] Skin nodule; [place], [place] Skin tag [phone] Social History Tobacco Use Types Packs/Day Years [...] Procedure clinic with on 11/22/12 @ 1:00p.m ER REPRESENTATIVE documented in this encounter Progress Notes Kenton [...] MICRO IF (LABDAQ) Component Value Range Specific [place] Urine 1.010 1.005 - 1.030 pH Urine [...] Crystal Urine None Bacteria Wet Prep Moderate [facility] Procedure Note Azul Sapna Garg [...] - fluticasone (FLONASE) 50 MCG/ACT nasal spray; [place] 1-2 sprays into both nostrils daily Skin [...] skin documented in this encounter Care Teams Electrical Research Engineer Relationship Specialty Start Date End Date Caitlin Ballesteros MD PCP - General 10/08/11 08/11/13 documented as of this encounter
--- OUTSIDE RECORDS SUMMARY | 2021-12-22 08:45 | XMS_ITS | Encounter Summary ---
:1980 Author Organization [place] Address [facility] [place] [address] Care Team Providers Name Role Phone Unavailable Primary Care Provider Unavailable Encounter Details Date Type Department Care Team Description 11/25/2009 Office Visit-[facility] Orthopaedic Clinic Bebeto Rothide Renzo Hartman MD [address] 1[address] Floor, [id number] [place] [phone] Social History Tobacco Use Types Packs/Day Years Used Date Smoking Tobacco: Never Assessed Sex Assigned at Date Recorded Not on file documented as of this encounter Progress Notes Bebeto Roth - 11/25/2009 11:30 AM CDT Medical Researcher: Bebeto Roth Status: Final - Signature Encounter: 25 Nov 2009 Type: U Ortho Visit Department of Orthopaedic Surgery Administration: [address], [address] [place] [phone] or [phone] Appointments [email or web address] Mail Address: [address], [address] [place] [phone] Shmuel Ruiz MD General Orthopaedics Marcella Wilson [...] actually gone back to work in an [employer] type setting and 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 She has completed an SRS 30 questionnaire. [...] of Spine Service DP:pedro cc: Jocelin Solis [address] [address] Radha Navarro MD [facility] [address] [place] [address] Electronically signed by:Bebeto Roth M.D. Dec 03 2009 8:42AM CUSTOMER SERVICE SUPERVISOR documented in this encounter Plan of Treatment Not on filedocumented as of this encounter Visit Diagnoses Not on filedocumented in this encounter
--- OUTSIDE RECORDS SUMMARY | 2021-12-22 08:45 | XMS_ITS | Encounter Summary ---
:1980 Author Organization [place] Address 24[address] [facility] [place] [address] Care Team Providers Name Role Phone Unavailable Primary Care Provider Unavailable Encounter Details Date Type Department Care Team Description 04/20/2011 Results Only [facility] PHYS STANDARD Melanie, Radha 500 [facility] MD Андрей [place], [place] [phone] Social History Tobacco Use Types Packs/Day Years Used Date Smoking Tobacco: Never Assessed Sex Assigned at Date Recorded Not on file documented as of this encounter Plan of Treatment Not on filedocumented as of this encounter Procedures Procedure Name Priority Date/Time Associated Diagnosis Comme nts PAP IMAGED THIN Routine 04/20/2011 12:00 AM Resul ts for this LAYER SCREEN DRYING MACHINE TENDER procedure are i n the results section. documented in this encounter Results PAP imaged thin layer screen (04/20/2011 12:00 AM DRYING MACHINE TENDER) Component Value Ref Test Analysis Performed At [facility] Range Method Time Signature PAP NIL TITA Young Report TITA Acc#: [id number] ?? Signed: 04/22/2011 13:01 ?? MR#: [id number] SPECIMEN/STAIN PROCESS: Pap imaged thin layer prep [...] rcinomas or other cancers. TESTING LAB LOCATION: ??[place] [facility] [employer], [facility], [address] ?? [phone], Processed and screened at [facility] ntgiuliano, [facility] Specimen (Source) Anatomical Collection Method Collection Time Re ceived Time Location / / Volume Laterality 04/20/2011 04/21/2011 10:3 2 AM DRYING MACHINE TENDER Radha Navarro MD LAB - OPTIME CLINICAL SPECIM EN Performing Organization Address City/State/ZIP Code Phon e Number [place] documented in this encounter Visit Diagnoses Not on filedocumented in this encounter
--- OUTSIDE RECORDS SUMMARY | 2021-12-22 08:45 | XMS_ITS | Encounter Summary ---
:1980 Author Organization [place] Address [facility] [place] [address] Care Team Providers Name Role Phone Unavailable Primary Care Provider Unavailable Encounter Details Date Type Department Care Team Description 04/20/2011 Results Only [facility] PHYS STANDARD Radha Navarro 500 [facility] MD Андрей [place], [place] [phone] Social History Tobacco Use Types Packs/Day Years Used Date Smoking Tobacco: Never Assessed Sex Assigned at Date Recorded Not on file documented as of this encounter Plan of Treatment Not on filedocumented as of this encounter Procedures Procedure Name Priority Date/Time Associated Diagnosis Comme nts ABO/RH TYPE AND Routine 04/20/2011 4:32 PM Result s for this SCREEN PROTECTIVE SIGNAL OPERATIONS SUPERVISOR procedure are i n the results section. documented in this encounter Results ABO/Rh type and screen (04/20/2011 4:32 PM PROTECTIVE SIGNAL OPERATIONS SUPERVISOR) [facility] gist Method Time Signature ABO O [facility] RH(D) Pos [facility] Antibody Neg [facility] Screen [facility] Specimen 04/23/2011 [facility] Expires [facility] Specimen Anatomical Collection Method Collection Time Receive d Time (Source) Location / / Volume Laterality 04/20/2011 4:32 PM 2 4:37 PROTECTIVE SIGNAL OPERATIONS SUPERVISOR PM PROTECTIVE SIGNAL OPERATIONS SUPERVISOR Radha Navarro MD LAB - BLOOD BANK TEST ORDER Performing Organization Address City/State/ZIP Code Phon e Number [facility] [address] [place] [address] [facility] B[facility] documented in this encounter Visit Diagnoses Not on filedocumented in this encounter
--- OUTSIDE RECORDS SUMMARY | 2021-12-22 08:45 | XMS_ITS | Encounter Summary ---
:1980 Author Organization [place] Address [facility]0 [facility] [place] [address] Care Team Providers Name Role Phone Unavailable Primary Care Provider Unavailable Encounter Details Date Type Department Care Team Description 06/21/2011 Results Only [facility] PHYS Radha De La Fuente 500 [facility] MD Андрей [place], [place] [phone] Social History Tobacco Use Types Packs/Day Years [...] Component Value Ref Test Analysis Performed At [facility] Range Method Time Signature Specimen Cervical [facility] Chlamydia Negative for C. trachomatis rRNA by bottom brusher mediated amplification. [facility] Trachomatis A negative result [...] Phon e Number [facility] [address] [place] [address] [facility] MICROBIOLOGY documented in this encounter Visit Diagnoses Not on filedocumented in this encounter
--- OUTSIDE RECORDS SUMMARY | 2021-12-22 08:45 | XMS_ITS | Encounter Summary ---
:1980 Author Organization [place] Address [address]50 [facility] [place] [address] Care Team Providers Name Role Phone Unavailable Primary Care Provider Unavailable Encounter Details Date Type Department Care Team Description 11/25/2009 Office Visit-[facility] INTERFACE [facility] DEPT Unknown, Provider Social History Tobacco Use Types Packs/Day Years Used Date Smoking Tobacco: Never Assessed Sex Assigned at Date Recorded Not on file documented as of this encounter Progress Notes Unknown, Provider - 11/25/2009 11:30 AM CDT Hi Teacher: Tk Lopez Status: Final Encounter: 25 Nov 2009 Type: Rooming Note Reason For Visit Surgery follow up Do you have any other appointments, tests or procedures within the [facility] system for this same day? 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 Posterior spinal fusion T10 through L3. 2. Segmental spinal instrumentation T10 through L3. 3. Image-guided surgery. 4. Injection of intrathecal substance. Primary Provider: Kenia Pineda'laila Referring Physician: same. Santos Cavanaugh Current history of pain associated with this visit is as follows: Location: upper and mid back Quality: achey Severity: 3 - 4 (Pain scale 1-10, with 10 being the worst) Duration: constant at 1 Timing: depend on day and time and amount of activities Context: same Modifying factors: pain med Associated signs/symptoms: none Does this pain wake you up at night? yes, sometimes. Active Problems Acne Vulgaris (706.1) Anxiety (300.00) Care Coordinated By; Tier 0 Congenital Scoliosis (754.2) Normal Routine History And Physical Adult (V70.0) Scoliosis (737.30). Personal Hx Behavioral history: No tobacco use. Home environment: No secondhand tobacco smoke in home. Vital Signs Recorded by mabel on 25 Nov 2009 11:50 AM Height: 63.5 in, Weight: 148 lb, BMI: 25.8 kg/m2. Allergies No Known Drug Allergy. Current Meds Calcium 600+D 600-400 MG-UNIT Tablet;TAKE 1 TABLET TWICE DAILY with meals; Rx Minocycline HCl 100 MG Capsule;TAKE 1 CAPSULE DAILY WITH FOOD.; Rx Saline Nasal [place] 0.65 % Solution;USE 1 SPRAY IN EACH [...] AAA-MED RECONCILE;pt verified meds today visit; RPT. Med list offered and patient declined. Signature Signed By: Tk Lopez CMA; 11/25/2009 11:52 AM MOTION PICTURE PROJECTIONIST. documented in this encounter Plan of Treatment Not on filedocumented as of this encounter Visit Diagnoses Not on filedocumented in this encounter
--- OUTSIDE RECORDS SUMMARY | 2021-12-22 08:45 | XMS_ITS | Encounter Summary ---
:1980 Author Organization [place] Address [address] [place] [address]. [place] [address] Care Team Providers Name Role Phone Unavailable Primary Care Provider Unavailable Encounter Details Date Type Department Care Team Description 03/03/2010 Office Visit-[facility] Orthopaedic Clinic Bebeto Roth Mchenry Renzo Hartman MD [address] Floor, [id number] [place] [phone] Social History Tobacco Use Types Packs/Day Years Used Date Smoking Tobacco: Never Assessed Sex Assigned at Date Recorded Not on file documented as of this encounter Progress Notes Bebeto Roth - 03/03/2010 2:30 PM CST Etcher Photoengraving: Bebeto Roth Status: Final - Signature Encounter: 03 Mar 2010 Type: U Ortho Visit Department of Orthopaedic Surgery Administration: [address], [address] [place] [phone] or [phone] Appointments [email or web address] Mail Address: [address], [address] [place] [phone] Shmuel Ruiz MD General Orthopaedics Marcella Wilson [...] by:Bebeto Roth M.D. Mar 11 2010 9:50AM LOCATOR SPECIALIST TOR SPECIALIST Bebeto Roth - 03/03/2010 2:30 PM CST Etcher Photoengraving: Bebeto Roth Status: Final - Signature Encounter: 03 Mar 2010 Type: U Ortho Visit Department of Orthopaedic Surgery Administration: [address], [address] [place] [phone] or [phone] Appointments 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 She is trying to earn enough money [...] of Spine Service DP:pedro cc: Jocelin Solis [facility] [address] [facility] [address] Radha Navarro MD [facility] 2019 [place] [address] Electronically signed by:Bebeto Roth M.D. Mar 11 2010 9:50AM LOCATOR SPECIALIST TOR SPECIALIST documented in this encounter Plan of Treatment Not on filedocumented as of this encounter Visit Diagnoses Not on filedocumented in this encounter
--- OUTSIDE RECORDS SUMMARY | 2021-12-22 08:45 | XMS_ITS | Encounter Summary ---
:1980 Author Organization [place] Address 2450 [facility] [place] [address] Care Team Providers Name Role Phone Andreas Patel MD Primary Care Provider Caitlin Ballesteros MD Primary Care Provider Lisa Dewitt DO Primary Care Provider Bebeto Roth MD Unavailable Astrid Rios PA-C Unavailable [facility] Primary Care Provider + Keri Elias MD Primary Care Provider Unavailable Francisco Metz MD Primary Care Provider [phone] Francisco Metz MD Unavailable [phone] Kenton Katz MD Unavailable Unavailable Karen Veliz DO Primary Care Provider Kenton Katz MD Unavailable Unavailable Karen Veliz DO Unavailable Encounter Details Date Type Department Care Team Description 04/21/2011 Orders Only M [facility] Radha Pierce ositive test Imaging (Primary Dx) [address] [place] [address] Social History Tobacco Use Types Packs/Day Years Used Date Smoking Tobacco: Never Assessed Sex Assigned at Date Recorded Not on file documented as of this encounter Plan of Treatment Not on filedocumented as of this encounter Visit Diagnoses Diagnosis Positive test - Primary examination or test, positive result documented in this encounter Care Teams Him Manager Relationship Specialty Start Date End Date Andreas Patel MD PCP - General 10/05/11 10/07/11 [facility] [address] [place], [place] [phone] Caitlin Ballesteros MD PCP - General 10/08/11 08/11/13 Lisa Dewitt DO PCP - General 08/12/13 07/15/14 [facility] [address] [place], [place] [phone] Clinic - Located within [facility] PCP - General 07/16/14 03/11/15 [facility] [address] [place], [place] [phone] Keri Elias PCP - General Family Practice 03/12/15 9 MD Isaías Glez Mitchell PCP - General Family Practice 11/14/18 04/02/20 MD Stevie Karen Veliz PCP - General Family Medicine 04/03/20 [address] [place], [place] [phone] Bebeto Roth MD Orthopedics 07/09/[address] [facility] [place] [phone] Astrid Rios PA-C Physician Automotive Fuel Injection Servicer Physician Automotive Fuel Injection Servicer - 07/09/14 Surgical Francisco Metz Assigned PCP 07/04/19 02/01/20 MD Stevie [address] [place], [place] [phone] Kenton Katz Assigned PCP 02/02/20 08/27/20 MD Feliberto NO INFO AVAILABLE Kenton Katz Assigned Endocrinology 08/28/20 07/23/21 MD Feliberto Provider NO INFO AVAILABLE Karen Veliz, Assigned PCP 08/28/20 DO [address] [place] [address] documented as of this encounter
--- OUTSIDE RECORDS SUMMARY | 2021-12-22 08:45 | XMS_ITS | Encounter Summary ---
:1980 Author Organization [place] Address [facility] [place] [address] Care Team Providers Name Role Phone Unavailable Primary Care Provider Unavailable Encounter Details Date Type Department Care Team Description 04/20/2011 Results Only [facility] PHYS Radha De La Fuente 500 [facility] MD Андрей [place], [place] [phone] Social History Tobacco Use Types Packs/Day Years Used Date Smoking Tobacco: Never Assessed Sex Assigned at Date Recorded Not on file documented as of this encounter Plan of Treatment Not on filedocumented as of this encounter Procedures Procedure Name Priority Date/Time Associated Diagnosis Comme nts RUBELLA ANTIBODY Routine 04/20/2011 4:32 PM Resul ts for this IGG CHAIN SPLITTER procedure are i n the results section. documented in this encounter Results Rubella antibody IgG (04/20/2011 4:32 PM CHAIN SPLITTER) P athologist Signature Rubella PALOMA 48 IU/mL [facility] Comment: Interpretation: Positive, Immun e Specimen Anatomical Collection Method Collection Time Receive d Time (Source) Location / / Volume Laterality 04/20/2011 4:32 PM 2 4:37 CHAIN SPLITTER PM CHAIN SPLITTER Radha Navarro MD LAB - BLOOD ORDERABLES Performing Organization Address City/State/ZIP Code Phon e Number [facility] 500 [place] [address] [facility] LABS documented in this encounter Visit Diagnoses Not on filedocumented in this encounter
--- OUTSIDE RECORDS SUMMARY | 2021-12-22 08:45 | XMS_ITS | Encounter Summary ---
:1980 Author Organization [place] Address [facility] [place] [address] Care Team Providers Name Role Phone Unavailable Primary Care Provider Unavailable Encounter Details Date Type Department Care Team Description 04/20/2011 Results Only [facility] PHYS Radha De La Fuente 500 [facility] MD Андрей [place], [place] [phone] Social History Tobacco Use Types Packs/Day Years Used Date Smoking Tobacco: Never Assessed Sex Assigned at Date Recorded Not on file documented as of this encounter Plan of Treatment Not on filedocumented as of this encounter Procedures Procedure Name Priority Date/Time Associated Comments Diagnosis CHLAMYDIA TRACHOMATIS Routine 04/20/2011 4:32 PM Results for this PCR ELECTRICAL CONTROL ASSEMBLER procedure are i n the results section. documented in this encounter Results Chlamydia trachomatis PCR (04/20/2011 4:32 PM ELECTRICAL CONTROL ASSEMBLER) Component Value Ref Test Analysis Performed At [facility] Range Method Time Signature Specimen Cervical [facility] Chlamydia Negative for C. trachomatis rRNA by global compensation manager mediated amplification. [facility] Trachomatis A negative result by transc ription mediated amplification does not preclude the MICROBIOLOGY PCR presence of C. trachomatis infection because results are dependent on proper and adequate collection, absence of inhibitors, and suffici ent rRNA to be detected. Specimen Anatomical Collection Method Collection Time Receive d Time (Source) Location / / Volume Laterality 04/20/2011 4:32 PM 2 4:37 ELECTRICAL CONTROL ASSEMBLER PM ELECTRICAL CONTROL ASSEMBLER Radha Navarro MD LAB - MICRO GENERAL ORDERABL ES Performing Organization Address City/State/ZIP Code Phon e Number [facility] [address] [place] [address] [facility] MICROBIOLOGY documented in this encounter Visit Diagnoses Not on filedocumented in this encounter
--- OUTSIDE RECORDS SUMMARY | 2021-12-22 08:45 | XMS_ITS | Encounter Summary ---
:1980 Author Organization [place] Address [address] [facility] [place] [address] Care Team Providers Name Role Phone Unavailable Primary Care Provider Unavailable Encounter Details Date Type Department Care Team Description 03/03/2010 Office Visit-[facility] INTERFACE [facility] DEPT Provider, [facility] Nurs e Social History Tobacco Use Types Packs/Day Years Used Date Smoking Tobacco: Never Assessed Sex Assigned at Date Recorded Not on file documented as of this encounter Progress Notes Provider, [facility] Nurse - 03/03/2010 2:30 PM CST Senior Software Engineering Manager: Melvi Juárez Status: Final Encounter: 03 Mar 2010 Type: Rooming Note Reason For Visit Surgery follow up Do you have any other appointments, tests or procedures within the [place] system for this same day? 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 documented in this encounter Plan of Treatment Not on filedocumented as of this encounter Visit Diagnoses Not on filedocumented in this encounter
--- OUTSIDE RECORDS SUMMARY | 2021-12-22 08:45 | XMS_ITS | Encounter Summary ---
:1980 Author Organization [place] Address [address] [facility] [place] [address] Care Team Providers Name Role Phone Unavailable [...] Navarro MD - 05/09/2011 2:40 PM CDT Food Services Director: Radha Navarro Status: Final Encounter: 09 May 2011 Type: FM Letters Autosend Letters Ms. AZUL TELLEZ [address] [place] [address] May 09, 2011 Dear Ms. AZUL TELLEZ [...] PM - US OB LIMITED Principal Result Trailhead Construction Worker: ZULMA FOREMAN DR&& EXAM: OB ultrasound 04/28/2011. [...] and agree with the findings. Performed at: [place]. Signature Signed By: Radha Navarro MD,Resident; 05/09/2011 2:40 PM CATTLE TRADER; Author. documented in this encounter Plan of Treatment Not on filedocumented as of this encounter Visit Diagnoses Not on filedocumented in this encounter
--- OUTSIDE RECORDS SUMMARY | 2021-12-22 08:45 | XMS_ITS | Encounter Summary ---
:1980 Author Organization [place] Address [address] [facility] [place] [address] Care Team Providers Name Role Phone Unavailable Primary Care Provider Unavailable Encounter Details Date Type Department Care Team Description 04/20/2011 Historic Results [facility] Leanne Navarro [place] MD Андрей [address] [place] [address] [place] [address] Social History Tobacco Use Types Packs/Day Years Used Date Smoking Tobacco: Never Assessed Sex Assigned at Date Recorded Not on file documented as of this encounter Plan of Treatment Not on filedocumented as of this encounter Procedures Procedure Name Priority Date/Time Associated Comments Diagnosis WET PREP (LABDAQ) Routine 04/20/2011 4:36 PM Resu lts for this LANDFILL GAS COLLECTION SYSTEM OPERATOR procedure are i n the results section. URINALYSIS(LABDAQ) Routine 04/20/2011 4:36 PM Res ults for this LANDFILL GAS COLLECTION SYSTEM OPERATOR procedure are i n the results section. HEMOGLOBIN (HGB) Routine 04/20/2011 4:36 PM Resul ts for this (LABDAQ) LANDFILL GAS COLLECTION SYSTEM OPERATOR procedure are i n the results section. HCG QUALITATIVE URINE Routine 04/20/2011 3:20 PM Results for this (LABDAQ) LANDFILL GAS COLLECTION SYSTEM OPERATOR procedure are i n the results section. documented in this encounter Results (ABNORMAL) Hemoglobin (HGB) (LabDAQ) (04/20/2011 4:36 PM LANDFILL GAS COLLECTION SYSTEM OPERATOR) P athologist Signature Hemoglobin 10.9 (L) 11.7 - [facility] HISTORICAL 15.7 g/dl RESULTS Specimen Anatomical Collection Method Collection Time Receive d Time (Source) Location / / Volume Laterality 04/20/2011 4:36 PM 2 4:36 LANDFILL GAS COLLECTION SYSTEM OPERATOR PM LANDFILL GAS COLLECTION SYSTEM OPERATOR Radha Navarro MD LAB - LABDAQ Performing Organization Address [facility]/ZIP Code Phon e Number [facility] HISTORICAL RESULTS (ABNORMAL) Urinalysis(LabDAQ) (04/20/2011 4:36 PM LANDFILL GAS COLLECTION SYSTEM OPERATOR) [facility] Method Time Signature Specific [place] 1.025 1.005 - [facility] HISTORICA L Urine [...] Volume Laterality 04/20/2011 4:36 PM 2 4:36 LANDFILL GAS COLLECTION SYSTEM OPERATOR PM LANDFILL GAS COLLECTION SYSTEM OPERATOR Radha Navarro MD LAB - LABDAQ Performing Organization Address [facility]/ZIP Code Phon e Number [facility] HISTORICAL RESULTS Wet Prep (LabDAQ) (04/20/2011 4:36 PM LANDFILL GAS COLLECTION SYSTEM OPERATOR) [facility] Method Time [facility] Yeast Wet Prep Present [facility] HISTORICAL RESULTS [...] Volume Laterality 04/20/2011 4:36 PM 2 4:36 LANDFILL GAS COLLECTION SYSTEM OPERATOR PM LANDFILL GAS COLLECTION SYSTEM OPERATOR Radha Navarro MD LAB - LABDAQ Performing Organization Address City/[facility]/ZIP Code Phon e Number [facility] HISTORICAL RESULTS HCG Qualitative Urine (LabDAQ) (04/20/2011 3:20 PM LANDFILL GAS COLLECTION SYSTEM OPERATOR) [facility] Signature HCG Qual Urine POSITIVE [facility] HISTORICAL RESULTS Specimen Anatomical Collection Method Collection Time Receive d Time (Source) Location / / Volume Laterality 04/20/2011 3:20 PM 2 3:20 LANDFILL GAS COLLECTION SYSTEM OPERATOR PM LANDFILL GAS COLLECTION SYSTEM OPERATOR Radha Navarro MD LAB - LABDAQ Performing Organization Address City/State/ZIP Code Phon e Number [facility] HISTORICAL RESULTS documented in this encounter Visit Diagnoses Not on filedocumented in this encounter
--- OUTSIDE RECORDS SUMMARY | 2021-12-22 08:45 | XMS_ITS | Encounter Summary ---
:1980 Author Organization [place] Address [facility] [place] [address] Care Team Providers Name Role Phone Unavailable Primary Care Provider Unavailable Encounter Details Date Type Department Care Team Description 04/20/2011 Results Only [facility] PHYS Radha De La Fuente 500 [facility] MD Андрей [place], [place] [phone] Social History Tobacco Use Types Packs/Day Years Used Date Smoking Tobacco: Never Assessed Sex Assigned at Date Recorded Not on file documented as of this encounter Plan of Treatment Not on filedocumented as of this encounter Procedures Procedure Name Priority Date/Time Associated Diagnosis Comme nts URINE CULTURE Routine 04/20/2011 4:32 PM Results for this COKE HANDLING SUPERVISOR procedure are i n the results section . documented in this encounter Results Urine culture (04/20/2011 4:32 PM COKE HANDLING SUPERVISOR) Component Value Ref Test Analysis Performed At [facility] Range Method Time Signature Specimen Midstream Urine [facility] Description MICROBIOLOGY Special Specimen received [facility] Requests in preservative MICROBIOLOGY Culture Micro 10 to 50,000 colonies/mL Mixed gram positive teresa [facility] Multiple species present, probable perineal contamination. MICROBIOLOGY Susceptibility testing not routinely done Micro Report FINAL 04/21/2011 [facility] Status MICROBIOLOGY Specimen Anatomical Collection Method Collection Time Receive d Time (Source) Location / / Volume Laterality 04/20/2011 4:32 PM 2 4:37 COKE HANDLING SUPERVISOR PM COKE HANDLING SUPERVISOR Radha Navarro MD LAB - MICRO GENERAL ORDERABL ES Performing Organization Address City/State/ZIP Code Phon e Number [facility] [address] [place] [address] [place] [facility] MICROBIOLOGY documented in this encounter Visit Diagnoses Not on filedocumented in this encounter
--- OUTSIDE RECORDS SUMMARY | 2021-12-22 08:45 | XMS_ITS | Encounter Summary ---
:1980 Author Organization [place] Address [facility] [place] [address] Care Team Providers Name Role Phone Unavailable Primary Care Provider Unavailable Encounter Details Date Type Department Care Team Description 04/20/2011 Results Only [facility] PHYS Radha De La Fuente 500 [facility] MD Андрей [place], [place] [phone] Social History Tobacco Use Types Packs/Day Years Used Date Smoking Tobacco: Never Assessed Sex Assigned at Date Recorded Not on file documented as of this encounter Plan of Treatment Not on filedocumented as of this encounter Procedures Procedure Name Priority Date/Time Associated Diagnosis Comme nts ANTI TREPONEMA Routine 04/20/2011 4:32 PM Results for this BRAND EXECUTIVE procedure are i n the results section . documented in this encounter Results Anti treponema EIA (04/20/2011 4:32 PM BRAND EXECUTIVE) Analysis Performed At Patho logist Time Signature Treponema Negative NEG [facility] Antibody [place] [facility] Specimen Anatomical Collection Method Collection Time Receive d Time (Source) Location / / Volume Laterality 04/20/2011 4:32 PM 201 2 4:37 BRAND EXECUTIVE PM BRAND EXECUTIVE Radha Navarro MD LAB - BLOOD ORDERABLES Performing Organization Address City/State/ZIP Code Phon e Number [facility] [address] [place] [address] [facility] [place] [facility] documented in this encounter Visit Diagnoses Not on filedocumented in this encounter
--- OUTSIDE RECORDS SUMMARY | 2021-12-22 08:45 | XMS_ITS | Encounter Summary ---
:1980 Author Organization [place] Address [facility] [place] [address] Care Team Providers Name Role Phone Unavailable Primary Care Provider Unavailable Encounter Details Date Type Department Care Team Description 06/21/2011 Results Only [facility] PHYS Radha De La Fuente 500 [facility] MD Андрей [place], [place] [address] [phone] Social History Tobacco Use Types Packs/Day Years [...] Component Value Ref Test Analysis Performed At [facility] Range Method Time Signature Specimen Cervical [facility] Descrip N Gonorrhea Negative for N. gonorrhoeae rRNA by supervisor safety deposit mediated amplification. [facility] PCR A negative result [...] City/State/ZIP Code Phon e Number [facility] [address] [address] [facility] MICROBIOLOGY documented in this encounter Visit Diagnoses Not on filedocumented in this encounter
--- OUTSIDE RECORDS SUMMARY | 2021-12-22 08:45 | XMS_ITS | Encounter Summary ---
:1980 Author Organization [place] Address [facility] [place] [address] Care Team Providers Name Role Phone Unavailable Primary Care Provider Unavailable Encounter Details Date Type Department Care Team Description 04/20/2011 Results Only [facility] PHYS Radha De La Fuente 500 [facility] MD Андрей [place], [place] [phone] Social History Tobacco Use Types Packs/Day Years Used Date Smoking Tobacco: Never Assessed Sex Assigned at Date Recorded Not on file documented as of this encounter Plan of Treatment Not on filedocumented as of this encounter Procedures Procedure Name Priority Date/Time Associated Diagnosis Comme nts HEPATITIS B SURFACE Routine 04/20/2011 4:32 PM Re sults for this ANTIGEN SENIOR LOAN PROCESSOR procedure are i n the results section. documented in this encounter Results Hepatitis B surface antigen (04/20/2011 4:32 PM SENIOR LOAN PROCESSOR) Analysis Performed At Patho logist Time Signature Hep B Surface Negative NEG [facility] LABS Specimen Anatomical Collection Method Collection Time Receive d Time (Source) Location / / Volume Laterality 04/20/2011 4:32 PM 201 2 4:37 SENIOR LOAN PROCESSOR PM SENIOR LOAN PROCESSOR Radha Navarro MD LAB - BLOOD ORDERABLES Performing Organization Address City/State/ZIP Code Phon e Number [facility] [address] [place] [address] [facility] LABS documented in this encounter Visit Diagnoses Not on filedocumented in this encounter
--- OUTSIDE RECORDS SUMMARY | 2021-12-22 08:45 | XMS_ITS | Encounter Summary ---
:1980 Author Organization [place] Address [facility] [place] [address] Care Team Providers Name Role Phone Unavailable Primary Care Provider Unavailable Encounter Details Date Type Department Care Team Description 04/20/2011 Results Only [facility] PHYS STANDARD Radha Navarro 500 [facility] MD Андрей [place], [place] [phone] Social History Tobacco Use Types Packs/Day Years Used Date Smoking Tobacco: Never Assessed Sex Assigned at Date Recorded Not on file documented as of this encounter Plan of Treatment Not on filedocumented as of this encounter Procedures Procedure Name Priority Date/Time Associated Diagnosis Comme nts HEPATITIS B SURFACE Routine 04/20/2011 4:32 PM Re sults for this ANTIBODY STORE STOCK HELP procedure are i n the results section. documented in this encounter Results Hepatitis B surface antibody (04/20/2011 4:32 PM STORE STOCK HELP) P athologist Signature Hep B Surface 751.0 [facility] LABS Comment: Positive, Patient is considered to be im mune to infection with hepatitis B when the value is greater than or equal to 1 2.0 mlU/mL. Specimen Anatomical Collection Method Collection Time Receive d Time (Source) Location / / Volume Laterality 04/20/2011 4:32 PM 2 4:37 STORE STOCK HELP PM STORE STOCK HELP Radha Navarro MD LAB - BLOOD ORDERABLES Performing Organization Address City/State/ZIP Code Phon e Number [facility] [address] [place] [address] [facility] LABS documented in this encounter Visit Diagnoses Not on filedocumented in this encounter
--- OUTSIDE RECORDS SUMMARY | 2021-12-22 08:45 | XMS_ITS | Encounter Summary ---
:1980 Author Organization [place] Address [address] [facility] [address] Care Team Providers Name Role Phone Unavailable [...] Navarro MD - 12/14/2009 4:40 PM CDT New Accounts Clerk: Radha Navarro Status: Final Encounter: 14 Dec [...] CAPSULE DAILY WITH FOOD.; Rx Saline Nasal [place] 0.65 % Solution;USE 1 SPRAY IN EACH [...] By: Radha Navarro MD,Resident; 12/16/2009 8:48 AM ECOMMERCE MARKETING MANAGER; Author. Signed By: August Ontiveros M.D.; 12/17/2009 3:30 PM ECOMMERCE MARKETING MANAGER; Author. documented in this encounter Plan of Treatment Not on filedocumented as of this encounter Visit Diagnoses Not on filedocumented in this encounter
--- OUTSIDE RECORDS SUMMARY | 2021-12-22 08:45 | XMS_ITS | Encounter Summary ---
:1980 Author Organization [place] Address [address] [facility] [place] [address] Care Team Providers Name Role Phone Unavailable [...] Navarro MD - 04/28/2011 5:23 PM CDT Senior Human Resources Representative: Radha Navarro Status: Amended, Final Encounter: 28 Apr 2011 Type: FM Letters Autosend Letters Ms. AZUL TELLEZ [address] [place] [address] April 28, 2011 Dear Ms. AZUL TELLEZ [...] CHPCR Negative for C. trachomatis rRNA by coal miner mediated amplification. A negative result by coal miner mediated amplification does not preclude the presence of C. trachomatis infection because results are dependent on proper and adequate collection, absence of inhibitors, and sufficient rRNA to be detected. N gnorrhoeae PCR 20 Apr 2011 04:32 PM - N gonorrhoeae PCR Specimen Description Cervical GCPCR Negative for N. gonorrhoeae rRNA by coal miner mediated amplification. A negative result by coal miner mediated amplification does not preclude the presence of N. gonorrhoeae infection because results are dependent on proper and adequate collection, absence of inhibitors, and sufficient rRNA to be detected. Cytopathology 20 Apr 2011 12:00 AM - Cytopathology PAP NIL Acc#: [id number] Signed: 04/22/2011 13:01 MR#: [id number] SPECIMEN/STAIN PROCESS: Pap imaged thin layer prep [...] adenocarcinomas or other cancers. TESTING LAB LOCATION: [facility], [address] [id number], Processed and screened at [facility], [facility]. Orders Clotrimazole 1 % Cream ([place]);INSERT 1 APPLICATORFUL INTRAVAGINALLY AT BEDTIME NIGHTLY; Qty10; R0; Rx Amended By: Radha Navarro ; 04/28/2011 5:25 PM COMPRESSOR OPERATOR. Signature Signed By: Radha Navarro MD,Resident; 04/28/2011 5:24 PM COMPRESSOR OPERATOR; Author. Signed By: Radha Navarro MD,Resident; 04/28/2011 5:29 PM COMPRESSOR OPERATOR; Author. documented in this encounter Plan of Treatment Not on filedocumented as of this encounter Visit Diagnoses Not on filedocumented in this encounter
--- OUTSIDE RECORDS SUMMARY | 2021-12-22 08:45 | XMS_ITS | Encounter Summary ---
:1980 Author Organization [place] Address [facility] [place] [address] Care Team Providers Name Role Phone Unavailable Primary Care Provider Unavailable Encounter Details Date Type Department Care Team Description 04/20/2011 Results Only [facility] PHYS Radha De La Fuente 500 [facility] MD Андрей [place], [place] [phone] Social History Tobacco Use Types Packs/Day Years Used Date Smoking Tobacco: Never Assessed Sex Assigned at Date Recorded Not on file documented as of this encounter Plan of Treatment Not on filedocumented as of this encounter Procedures Procedure Name Priority Date/Time Associated Comments Diagnosis NEISSERIA GONORRHOEAE Routine 04/20/2011 4:32 PM Results for this PCR SBA UNDERWRITER procedure are i n the results section. documented in this encounter Results Neisseria gonorrhoeae PCR (04/20/2011 4:32 PM SBA UNDERWRITER) Component Value Ref Test Analysis Performed At [facility] Range Method Time Signature Specimen Cervical [facility] Descrip N Gonorrhea Negative for N. gonorrhoeae rRNA by performance test consultant mediated amplification. [facility] PCR A negative result by transc ription mediated amplification does not preclude the MICROBIOLOGY presence of N. gonorrhoeae infection because re sults are dependent on proper and adequate collection, absence of inhibitors, and suffici ent rRNA to be detected. Specimen Anatomical Collection Method Collection Time Receive d Time (Source) Location / / Volume Laterality 04/20/2011 4:32 PM 2 4:37 SBA UNDERWRITER PM SBA UNDERWRITER Radha Navarro MD LAB - MICRO GENERAL ORDERABL ES Performing Organization Address City/State/ZIP Code Phon e Number [facility] [address] [place] [address] [facility] MICROBIOLOGY documented in this encounter Visit Diagnoses Not on filedocumented in this encounter
--- OUTSIDE RECORDS SUMMARY | 2021-12-22 08:45 | XMS_ITS | Encounter Summary ---
:1980 Author Organization [place] Address [address] [facility] [place] [address] Care Team Providers Name Role Phone Unavailable Primary Care Provider Unavailable Encounter Details Date Type Department Care Team Description 04/20/2011 Results Only UU PHYS STANDARD Melanie, Radha 500 [facility] MD Андрей [place], [place] [address] [phone] Social History Tobacco Use Types Packs/Day Years Used Date Smoking Tobacco: Never Assessed Sex Assigned at Date Recorded Not on file documented as of this encounter Plan of Treatment Pending Results Name Type Priority Associated Diagnoses Date/Ti me screen with HIV Lab Routine 08/2011 4:32 PM DIRECTORY COMPILER documented as of this encounter Procedures Procedure Name Priority Date/Time Associated Diagnosis Comme nts SCREEN WITH Routine 04/20/2011 4:32 PM DIRECTORY COMPILER HIV documented in this encounter Visit Diagnoses Not on filedocumented in this encounter
--- OUTSIDE RECORDS SUMMARY | 2021-12-22 08:45 | XMS_ITS | Encounter Summary ---
:1980 Author Organization [place] Address [address] [facility] [place] [address] Care Team Providers Name Role Phone Unavailable Primary Care Provider Unavailable Encounter Details Date Type Department Care Team Description 06/21/2011 Historic Results [facility] Leanne Navarro [place] MD Андрей [address] [place], [place] [phone] (Work) [place] [address] Social History Tobacco Use Types Packs/Day Years [...] Wet Prep (LabDAQ) (06/21/2011 4:05 PM CDT) [facility] Method Time Signature Yeast Wet Prep [...]
--- OUTSIDE RECORDS SUMMARY | 2021-12-22 08:45 | XMS_ITS | Encounter Summary ---
:1980 Author Organization [place] Address [facility] [place] [address] Care Team Providers Name Role Phone Unavailable Primary Care Provider Unavailable Encounter Details Date Type Department Care Team Description 04/20/2011 Results Only UU PHYS Radha De La Fuente 500 [facility] MD Андрей [place], [place] [phone] Social History Tobacco Use Types Packs/Day Years Used Date Smoking Tobacco: Never Assessed Sex Assigned at Date Recorded Not on file documented as of this encounter Plan of Treatment Not on filedocumented as of this encounter Procedures Procedure Name Priority Date/Time Associated Diagnosis Comme nts VARICELLA ZOSTER Routine 04/20/2011 4:32 PM Resul ts for this ANTIBODY IGG HEALTH ADMINISTRATION TEACHER procedure are i n the results section. documented in this encounter Results Varicella zoster antibody IgG (04/20/2011 4:32 PM HEALTH ADMINISTRATION TEACHER) [facility] Method Time Signature Varicella 203.00 [facility] Zoster IgG [facility] Immune Status CAMPUS LABS Ratio Vari Zoster Positive, [facility] IgG Interp suggests [place] prev. CAMPUS LABS exposure and probable immunity Specimen Anatomical Collection Method Collection Time Receive d Time (Source) Location / / Volume Laterality 04/20/2011 4:32 PM 2 4:37 HEALTH ADMINISTRATION TEACHER PM HEALTH ADMINISTRATION TEACHER Radha Navarro MD LAB - BLOOD ORDERABLES Performing Organization Address City/State/ZIP Code Phon e Number [facility] [address] [place] [address] [facility] LABS documented in this encounter Visit Diagnoses Not on filedocumented in this encounter
--- OUTSIDE RECORDS SUMMARY | 2021-12-22 08:45 | XMS_ITS | Encounter Summary ---
:1980 Author Organization [place] Address [facility] [address] Care Team Providers Name Role Phone Unavailable Primary Care Provider Unavailable Encounter Details Date Type Department Care Team Description 04/20/2011 Results Only UU PHYS STANDARD Radha Navarro 500 [facility] MD Андрей [place], [place] [phone] Social History Tobacco Use Types Packs/Day Years Used Date Smoking Tobacco: Never Assessed Sex Assigned at Date Recorded Not on file documented as of this encounter Plan of Treatment Not on filedocumented as of this encounter Procedures Procedure Name Priority Date/Time Associated Diagnosis Comme nts HIV 1 AND 2 Routine 04/20/2011 4:32 PM Results f or this ANTIBODY (QUEST) SOLE ROUNDER procedure a re in the results section. documented in this encounter Results HIV 1 and 2 Antibody (04/20/2011 4:32 PM SOLE ROUNDER) Analysis Performed At Patho logist Time Signature HIV 1&2 Negative NEG [facility] Antibody [facility] LABS Specimen Anatomical Collection Method Collection Time Receive d Time (Source) Location / / Volume Laterality 04/20/2011 4:32 PM 2 4:37 SOLE ROUNDER PM SOLE ROUNDER Radha Navarro MD LAB - BLOOD ORDERABLES Performing Organization Address City/State/ZIP Code Phon e Number [facility] [address] [place] [address] [facility] LAB[facility] documented in this encounter Visit Diagnoses Not on filedocumented in this encounter
--- OUTSIDE RECORDS SUMMARY | 2021-12-22 08:45 | XMS_ITS | Encounter Summary ---
:1980 Author Organization [place] Address [address] [facility] [place] [address] Care Team Providers Name Role Phone Unavailable Primary Care Provider Unavailable Encounter Details Date Type Department Care Team Description 05/30/2011 Office Visit-[facility] INTERFACE [facility] DEPT Greta Patel v, MD [facility] [address] [place] [address] (Wo rk) Social History Tobacco Use Types Packs/Day Years Used Date Smoking Tobacco: Never Assessed Sex Assigned at Date Recorded Not on file documented as of this encounter Progress Notes Andreas Patel MD - 05/30/2011 2:40 PM CDT Lot Boss: Andreas Patel Status: Final Encounter: 30 May 2011 Type: FM Letters Autosend Orders Ondansetron 4 MG Tablet Dispersible;TAKE 1 TABLET BEDTIME; Qty60; R1; Rx. Loratadine 10 MG Tablet;TAKE 1 TABLET DAILY NEEDED; Qty60; R1; Rx. Signature Signed By: Andreas Patel M.D.,Resident; 05/30/2011 6:10 PM STILL TENDER. documented in this encounter Plan of Treatment Not on filedocumented as of this encounter Visit Diagnoses Not on filedocumented in this encounter
--- OUTSIDE RECORDS SUMMARY | 2021-12-22 08:45 | XMS_ITS | Encounter Summary ---
:1980 Author Organization [place] Address [address] [place] [address]. [place] [address] Care Team Providers Name Role Phone Unavailable Primary Care Provider Unavailable Reason for Visit (Routine) - Closed Specialty Diagnoses / Procedures Referred By Contact Refer red To Contact Radiology Diagnoses US OB 2-3 TRIMESTER* Procedure Notes: POSITIVE TEST,SIZES, DATES Ur Ultrasound Procedures RADIOLOGY [address] [place] [phone] Phone: Referral ID Status Reason Start Date Expiration Date Visits Requ ested Visits Authorized [id number] Closed 04/26/2011 04/25/2012 1 1 Encounter Details Date Type Department Care Team Description 04/28/2011 Hospital Encounter [facility] Radha Navarro sitive [facility] Imaging MD Андрей test [address] [place] [address] [place] (Work) [place] [address] Social History Tobacco Use Types [...]
--- OUTSIDE RECORDS SUMMARY | 2021-12-22 08:46 | XMS_ITS | Encounter Summary ---
:1980 Author Organization [place] Address [address] [facility] [place] [address] Care Team Providers Name Role Phone Unavailable [...] Navarro MD - 10/27/2009 2:40 PM CDT Traveling Secretary: Radha Navarro Status: Final Encounter: 27 Oct [...] CAPSULE DAILY WITH FOOD.; Rx Saline Nasal [place] 0.65 % Solution;USE 1 SPRAY IN EACH [...] By: Radha Navarro MD,Resident; 10/29/2009 4:44 PM COOKY PACKER; Author. Signed By: Cindy Pope M.D.; 10/29/2009 6:06 PM COOKY PACKER; Author. documented in this encounter Plan of Treatment Not on filedocumented as of this encounter Visit Diagnoses Not on filedocumented in this encounter
--- OUTSIDE RECORDS SUMMARY | 2021-12-22 08:46 | XMS_ITS | Encounter Summary ---
:1980 Author Organization [place] Address [address] [facility] [place] [address] Care Team Providers Name Role Phone Unavailable Primary Care Provider Unavailable Encounter Details Date Type Department Care Team Description 10/17/2009 Historic Notes INTERFACED REPORT Kev Rios MD [facility] [address] [place], [place] [address] (Wo rk) Social History [...] next couple of days Kev Rios MD [phone] [Signature] Author: KEV RIOS () [Signed 07:33] documented in this encounter Plan of Treatment Not on filedocumented as of this encounter Visit Diagnoses Not on filedocumented in this encounter
--- OUTSIDE RECORDS SUMMARY | 2021-12-22 08:46 | XMS_ITS | Encounter Summary ---
:1980 Author Organization [place] Address [address] [facility] [place] [address] Care Team Providers Name Role Phone Unavailable Primary Care Provider Unavailable Encounter Details Date Type Department Care Team Description 10/19/2009 Historic Notes INTERFACED REPORT Kev Rios MD [facility] [address] [place], [place] [address] (Wo rk) Social History [...] - d/c home today Kev Rios MD [phone] [Signature] Author: KEV RIOS) [Signed 07:11] documented in this encounter Plan of Treatment Not on filedocumented as of this encounter Visit Diagnoses Not on filedocumented in this encounter
--- OUTSIDE RECORDS SUMMARY | 2021-12-22 08:46 | XMS_ITS | Encounter Summary ---
:1980 Author Organization [place] Address [address] [facility] [place] [address] Care Team Providers Name Role Phone Unavailable Primary Care Provider Unavailable Encounter Details Date Type Department Care Team Description 10/16/2009 Historic Results INTERFACED REPORT Kev Rios MD [facility] [address] [place], [place] [address] (Wo rk) Social History [...] Component Value Ref Test Analysis Performed At [facility] Range Method Time Signature Source Catheterized MISYS Urine Color Urine Yellow MISYS Appearance Urine Slightly Cloudy MISYS Glucose Urine Negative NEG MISYS mg/dL Bilirubin Urine Negative NEG MIS[facility] Ketones Urine 5 (A) NEG MISYS mg/dL Specific [place] 1.007 1.003 - MISYS Urine 1.035 Blood [...] Component Value Ref Test Analysis Performed At [facility] gist Range Method Time Signature Specimen Catheterized [...]
--- OUTSIDE RECORDS SUMMARY | 2021-12-22 08:46 | XMS_ITS | Encounter Summary ---
:1980 Author Organization [place] Address [address] [place] [address] Care Team Providers Name Role Phone Unavailable Primary Care Provider Unavailable Encounter Details Date Type Department Care Team Description 10/16/2009 Historic Notes INTERFACED REPORT Kev Rios MD [facility] ORTH OPEDICS [address] [place], [place] [address] (Wo rk) Social History Tobacco Use Types Packs/Day Years Used Date Smoking Tobacco: Never Assessed Sex Assigned at Date Recorded Not on file documented as of this encounter Progress Notes Kev Rios MD - 04/30/2010 8:44 PM CDT Ortho [...] - upright xrays today Kev Rios MD [phone] [Signature] Author: KEV RIOS) [Signed 07:56] documented in this encounter Plan of Treatment Not on filedocumented as of this encounter Visit Diagnoses Not on filedocumented in this encounter
--- OUTSIDE RECORDS SUMMARY | 2021-12-22 08:46 | XMS_ITS | Encounter Summary ---
:1980 Author Organization [place] Address [address] [facility] [place] [address] Care Team Providers Name Role Phone Unavailable Primary Care Provider Unavailable Encounter Details Date Type Department Care Team Description 10/17/2009 Historic Notes INTERFACED REPORT Myles De Oliveira MD [address] [place], [place] [phone] (Wo rk) Social History Tobacco Use Types [...]
--- OUTSIDE RECORDS SUMMARY | 2021-12-22 08:46 | XMS_ITS | Encounter Summary ---
:1980 Author Organization [place] Address [address] [facility] [place] [address] Care Team Providers Name Role Phone Unavailable [...]
--- OUTSIDE RECORDS SUMMARY | 2021-12-22 08:46 | XMS_ITS | Encounter Summary ---
:1980 Author Organization [place] Address [address] [facility] [place] [address] Care Team Providers Name Role Phone Unavailable Primary Care Provider Unavailable Encounter Details Date Type Department Care Team Description 10/18/2009 Consultation [facility] Carlitos Weathers, [facility] PhD [facility] Results [facility] [address] [place] [address] (Wo rk) Social History Tobacco [...] her 2 sons in an apartment in [place]. Her parents are . Shereported that the sons' father is in skilled nursing at this time. She reported that she had to move in with her mother a while back when both her and her mother had lost their jobs. 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 She has never been [...] can be faxed to our office at [facility] (fax [phone]), and it will be scored and gone [...] depression that may be happening. DSM-IV DIAGNOSES: [place] I: 300.00, Anxiety disorder, not otherwise specified. [place] II: Deferred. [place] III: Deferred to physician. [place] IV: Moderate to severe. [place] V: 30-35. Electronically signed on 10/19/2009 21:41 by CARLITOS WEATHERS, PHD As dictated by ADELINA HULL PSYD MT: THAO Name: AZUL DINH MRN: [id number] Account: [id number] : 1980 Consult Date: 10/18/2009 Document: [id number] cc: Bebeto Roth Jr, MD documented in this encounter Plan of Treatment Not on filedocumented as of this encounter Visit Diagnoses Not on filedocumented in this encounter
--- OUTSIDE RECORDS SUMMARY | 2021-12-22 08:46 | XMS_ITS | Encounter Summary ---
:1980 Author Organization [place] [employer] Address [address] [facility] [place] [address] Care Team Providers Name Role Phone Unavailable Primary Care Provider Unavailable Encounter Details Date Type Department Care Team Description 10/17/2009 Consultation [facility] Ronn Weaver MD [address] [place], [place] [phone] (Wo rk) Social History Tobacco Use Types [...] nancy Name: AZUL DINH MRN: [id number] Account: [id number] : 1980 Consult Date: 10/17/2009 Document: [id number] cc: Bebeto Roth Jr, MD [facility] documented in this encounter Plan of Treatment Not on filedocumented as of this encounter Visit Diagnoses Not on filedocumented in this encounter
--- OUTSIDE RECORDS SUMMARY | 2021-12-22 08:46 | XMS_ITS | Encounter Summary ---
:1980 Author Organization [place] Address [address] [facility] [place] [address] Care Team Providers Name Role Phone Unavailable Primary Care Provider Unavailable Encounter Details Date Type Department Care Team Description 10/16/2009 Historic Notes INTERFACED REPORT Interface, Transcript on, Social History Tobacco Use Types Packs/Day Years Used Date Smoking Tobacco: Never Assessed Sex Assigned at Date Recorded Not on file documented as of this encounter Progress Notes Interface, [employer] Factory Worker - 04/30/2010 8:41 PM CDT Notification - [...] MAIKEL GRUBBS (RN)[Signed 17:22] Authored: Notification Interface, [employer] Factory Worker - 04/30/2010 8:41 PM CDT Notification - [...] MAIKEL GRUBBS (RN)[Signed 21:03] Authored: Notification Interface, [employer] Factory Worker - 04/30/2010 8:41 PM CDT MD Notification [...]
--- OUTSIDE RECORDS SUMMARY | 2021-12-22 08:46 | XMS_ITS | Encounter Summary ---
:1980 Author Organization [place] Address [address] [facility] [place] [address] Care Team Providers Name Role Phone Unavailable Primary Care Provider Unavailable Encounter Details Date Type Department Care Team Description 10/19/2009 Historic Results INTERFACED REPORT Kev Rios MD [facility] ORTH OPEDICS [address] [place], [place] [address] (Wo rk) Social History [...]
--- OUTSIDE RECORDS SUMMARY | 2021-12-22 08:46 | XMS_ITS | Encounter Summary ---
:1980 Author Organization [place] Address [address] [facility] [place] [address] Care Team Providers Name Role Phone Unavailable [...]
--- OUTSIDE RECORDS SUMMARY | 2021-12-22 08:46 | XMS_ITS | Encounter Summary ---
:1980 Author Organization [place] Address [address] [facility] [place] [address] Care Team Providers Name Role Phone Unavailable Primary Care Provider Unavailable Encounter Details Date Type Department Care Team Description 10/13/2009 Historic Notes INTERFACED REPORT Interface, Transcript on, Social History Tobacco Use Types Packs/Day Years Used Date Smoking Tobacco: Never Assessed Sex Assigned at Date Recorded Not on file documented as of this encounter Progress Notes Interface, Bar Pointer - 04/30/2010 8:57 PM CDT Notification - Notified Person:: Resident - Notified Persons Balwindercurtis Name: - Notification Talked with Physician Interaction:: - Orders received?: No - Comments:: Discussed elevated HR and sudden onset of shaking with [place]'s residents rounding on pt. Resident assessed pt. No new orders. Will continue to monitor. EZRA Cardoso)[Signed 00:05] Authored: Notification Interface, Bar Pointer - 04/30/2010 8:57 PM CDT Notification - Notified Person:: Resident - Notified Persons Wild Name: - Notification Talked with Physician Interaction:: - Purpose of Change in condition notification:: - Orders received?: Yes - Comments:: cALLED MD to discuss pt's unresolved nausea and anxiety (post zofran and valuim). Orders for compazine, and ativan received and given. Pt improved. EZRA Cardoso)[Signed 00:03] Authored: Notification Interface, Bar Pointer - 04/30/2010 8:56 PM CDT General Information [...] Mobility: Rolling/Turning - Level of stand-by assist [place]: - Physical verbal cues; supervision Assist/Nonphysical Assist: - Assistive Device: bed rails Bed Mobility: Scooting/Bridging - Level of stand-by assist [place]: - Physical verbal cues; does not complete Assist/Nonphysical Assist: Bed Mobility: Sit to Supine - Level of contact guard [place]: - Physical verbal cues; 1 person assist Assist/Nonphysical Assist: Bed Mobility: Supine to Sit - Level of minimum assist (75% patients effort), contact [place]: guard - Physical 1 person assist; verbal cues Assist/Nonphysical Assist: - Assistive Device: bed rails Bed Mobility Analysis - Bed Mobility impaired ability to control trunk for mobility Limitations: - Impairments pain; post surgical precautions; fear and Contributing to anxiety Impaired Bed Mobility: Transfer: Sit to Stand - Level of unable to perform, pt anxious and nauseous, felt [place]: like she would vomit, declined Balance Skills [...] Muscle Tone, Treatment Plan, Clinical Impression Interface, Bar Pointer - 04/30/2010 8:54 PM CDT Progress Note [...] out of bed. I: did not DC IT SENIOR SOFTWARE ENGINEER JAVA because pt did not want to take pills. encourage use of IS. A: dressing to incision CDI. rates pain 8 but able to sleep. Signatures Amber Hedrick (RN)[Signed 14:37] Authored: Progress Note documented in this encounter Plan of Treatment Not on filedocumented as of this encounter Visit Diagnoses Not on filedocumented in this encounter
--- OUTSIDE RECORDS SUMMARY | 2021-12-22 08:46 | XMS_ITS | Encounter Summary ---
:1980 Author Organization [place] Address [address] [facility] [place] [address] Care Team Providers Name Role Phone Unavailable Primary Care Provider Unavailable Encounter Details Date Type Department Care Team Description 10/15/2009 Historic Notes INTERFACED REPORT Kev Rios MD [facility] ORTH OPEDICS [address] [place], [place] [address] (Wo rk) Social History [...] the week or weekend Kev Rios MD [phone] [Signature] Author: KEV RIOS) [Signed 06:51] documented in this encounter Plan of Treatment Not on filedocumented as of this encounter Visit Diagnoses Not on filedocumented in this encounter
--- OUTSIDE RECORDS SUMMARY | 2021-12-22 08:46 | XMS_ITS | Encounter Summary ---
:1980 Author Organization [place] Address [address] [facility] [place] [address] Care Team Providers Name Role Phone Unavailable Primary Care Provider Unavailable Encounter Details Date Type Department Care Team Description 10/13/2009 Historic Notes INTERFACED REPORT Kev Rios MD [facility] ORTH OPEDICS [address] [place], [place] [address] (Wo rk) Social History [...] PSF - prn pain meds, wean from SEEING EYE DOG TRAINER to PO today - ADAT - WBAT, up with PT - encourage IS - florez out when ambulatory - appreciate Smileys input - upright xrays in a couple days - anticipate home by the end of the week Kev Rios MD [phone] [Signature] Author: KEV RIOS) [Signed 06:46] documented in this encounter Plan of Treatment Not on filedocumented as of this encounter Visit Diagnoses Not on filedocumented in this encounter
--- OUTSIDE RECORDS SUMMARY | 2021-12-22 08:46 | XMS_ITS | Encounter Summary ---
:1980 Author Organization [place] Address [address] [facility] [place] [address] Care Team Providers Name Role Phone Unavailable Primary Care Provider Unavailable Encounter Details Date Type Department Care Team Description 10/19/2009 Historic Notes INTERFACED REPORT Interface, Transcript on, Social History Tobacco Use Types Packs/Day Years Used Date Smoking Tobacco: Never Assessed Sex Assigned at Date Recorded Not on file documented as of this encounter Progress Notes Interface, Cash Crop Farmer - 04/30/2010 8:35 PM CDT Discharge Summary - Reason for Discharge All goals and outcomes met, no further needs identified - Progress toward Goals met achieving short term goals/snf goals - Comments OT: goals met, training completed, equipment issued. no OT follow up recommended. patient to have assist from family as needed. - Continued Therapy No Recommended Signatures Laureen Casas (OT)[Signed 08:38] Authored: Discharge Summary Interface, Cash Crop Farmer - 04/30/2010 8:33 PM CDT Discharge Summary - Reason for Discharge All goals and outcomes met, no further needs identified - Progress toward Goals met achieving short term goals/snf goals - Comments PT: By Oct 20, [...]
--- OUTSIDE RECORDS SUMMARY | 2021-12-22 08:46 | XMS_ITS | Encounter Summary ---
:1980 Author Organization [place] Address [address] [facility] [place] [address] Care Team Providers Name Role Phone Unavailable [...] managed by the Ortho team with Dilaudid AN/SSN 2 4 OPERATOR. Per Orhto note, they will wean [...]
--- OUTSIDE RECORDS SUMMARY | 2021-12-22 08:46 | XMS_ITS | Encounter Summary ---
:1980 Author Organization [place] Address [address] [facility] [place] [address] Care Team Providers Name Role Phone Unavailable [...] Navarro MD - 11/17/2009 8:20 AM CDT Culinary Director: Radha Navarro Status: Final Encounter: 17 Nov [...] CAPSULE DAILY WITH FOOD.; Rx Saline Nasal [place] 0.65 % Solution;USE 1 SPRAY IN EACH [...] like to follow up with someone at [facility] for her anxiety. 2.Nausea. The patient [...] By: Radha Navarro MD,Resident; 11/19/2009 8:30 PM WATERPROOF COATING MACHINE TENDER; Author. Signed By: MYLES ROBERT M.D.; 11/27/2009 8:03 AM WATERPROOF COATING MACHINE TENDER. documented in this encounter Plan of Treatment Not on filedocumented as of this encounter Visit Diagnoses Not on filedocumented in this encounter
--- OUTSIDE RECORDS SUMMARY | 2021-12-22 08:46 | XMS_ITS | Encounter Summary ---
:1980 Author Organization [place] Address [facility] [place] [address] Care Team Providers Name Role Phone Unavailable Primary Care Provider Unavailable Encounter Details Date Type Department Care Team Description 10/16/2009 Results Only [facility] Kev Rios MD Radiology Results [facility] ORTHOPEDICS [address] [place], [place] [address] (Wo rk) Social History Tobacco Use Types Packs/Day Years Used Date Smoking Tobacco: Never Assessed Sex Assigned at Date Recorded Not on file documented as of this encounter Plan of Treatment Not on filedocumented as of this encounter Procedures Procedure Name Priority Date/Time Associated Diagnosis Comme [facility] X-RAY SPINE Routine 10/16/2009 4:09 [...]
--- OUTSIDE RECORDS SUMMARY | 2021-12-22 08:46 | XMS_ITS | Encounter Summary ---
:1980 Author Organization [place] Address [address] [facility] [place] [address] Care Team Providers Name Role Phone Unavailable Primary Care Provider Unavailable Encounter Details Date Type Department Care Team Description 10/17/2009 Historic Notes INTERFACED REPORT August Ontiveros MD [address] [facility] [address] [place] [phone] (Wo rk) Social History Tobacco Use Types [...]
--- OUTSIDE RECORDS SUMMARY | 2021-12-22 08:46 | XMS_ITS | Encounter Summary ---
:1980 Author Organization [place] Address [address] [facility] [place] [address] Care Team Providers Name Role Phone Unavailable [...]
--- OUTSIDE RECORDS SUMMARY | 2021-12-22 08:46 | XMS_ITS | Encounter Summary ---
:1980 Author Organization [place] Address [facility] [place] [address] Care Team Providers Name Role Phone Unavailable Primary Care Provider Unavailable Encounter Details Date Type Department Care Team Description 10/18/2009 Historic Results INTERFACED REPORT Kev Rios MD [facility] ORTH OPEDICS [address] [place], [place] [address] (Wo rk) Social History [...] C difficile culture (10/18/2009 5:44 PM CDT) [facility] gist Method Time Signature Specimen Feces MISYS [...] the test. FDA approved assay performed using [employer] GeneXpert real-time PCR. A negative result does [...]
--- OUTSIDE RECORDS SUMMARY | 2021-12-22 08:46 | XMS_ITS | Encounter Summary ---
:1980 Author Organization [place] Address [facility] [place] [address] Care Team Providers Name Role Phone Unavailable Primary Care Provider Unavailable Encounter Details Date Type Department Care Team Description 10/30/2009 Historic Results [facility] [address] Social History Tobacco Use Types Packs/Day Years [...] Component Value Ref Test Analysis Performed At [facility] Range Method Time Signature Source Unspecified MISYS Urine Color Urine Yellow MISYS Appearance Urine Clear MISYS Glucose Urine Negative NEG MISYS mg/dL Bilirubin Urine Negative NEG MISYS Ketones Urine Negative NEG MISYS mg/dL Specific [place] 1.017 1.003 - MISYS Urine 1.035 Blood [...] LAB - URINE ORDERABLES Performing Organization Address City/[facility] Phon e Number MISYS HCG qualitative urine [...] LAB - URINE ORDERABLES Performing Organization Address [facility] Phon e Number MISYS Urine culture (10/30/2009 5:20 PM CDT) [facility] gist Method Time Signature Specimen Unspecified [...] MICRO GENERAL ORDERABL ES Performing Organization Address City/[facility] Phon e Number MISYS documented in this encounter Visit Diagnoses Not on filedocumented in this encounter
--- OUTSIDE RECORDS SUMMARY | 2021-12-22 08:46 | XMS_ITS | Encounter Summary ---
:1980 Author Organization [place] Address [address] [facility] [address] Care Team Providers Name Role Phone Unavailable Primary Care Provider Unavailable Encounter Details Date Type Department Care Team Description 10/14/2009 Historic Notes INTERFACED REPORT Interface, Transcript on, Social History Tobacco Use Types Packs/Day Years Used Date Smoking Tobacco: Never Assessed Sex Assigned at Date Recorded Not on file documented as of this encounter Progress Notes Interface, Concrete Pipe Machine Operator - 04/30/2010 8:52 PM CDT General Information [...] Mobility: Rolling/Turning - Level of stand-by assist [place]: - Physical supervision; verbal cues Assist/Nonphysical Assist: - Assistive Device: bed rails Bed Mobility: Scooting/Bridging - Level of stand-by assist [place]: - Physical verbal cues; supervision Assist/Nonphysical Assist: - Assistive Device: bed rails Bed Mobility: Supine to Sit - Level of minimum assist (75% patients effort) [place]: - Physical set-up required; verbal cues Assist/Nonphysical Assist: - Assistive Device: bed rails Toilet Transfer - Level of unable to perform, wanted to have pain [place]: medication prior to getting OOB Eating/Self-Feeding - Level of stand-by assist [place]: - Physical set-up required Assist/Nonphysical Assist: Grooming - Level of stand-by assist [place]: - Physical set-up required Assist/Nonphysical Assist: Upper Body Dressing - Level of minimum assist (75% patients effort) [place]: - Physical set-up required; verbal cues; 1 person assist Assist/Nonphysical Assist: Lower Body Dressing - Level of maximum assist (25% patients effort) [place]: - Physical set-up required; verbal cues; 1 person assist Assist/Nonphysical Assist: - Assistive Device: immigration case manager; sock-aid Self Care Analysis - Impairments fear [...] anxiety and pain which impairs overall ADL [place]. Patient declined OOB transfers this morning due [...] therapy goals): - Demonstrates need for PT; REGIONAL EXTENSION SERVICE SPECIALIST referral to another service: - Predicted Duration [...]
--- OUTSIDE RECORDS SUMMARY | 2021-12-22 08:46 | XMS_ITS | Encounter Summary ---
:1980 Author Organization [place] Address [facility]0 [place] [address] Care Team Providers Name Role Phone Unavailable Primary Care Provider Unavailable Encounter Details Date Type Department Care Team Description 10/30/2009 Emergency room [facility] Lamont Brito, [facility] Results [place] [address] Social History Tobacco Use Types Packs/Day Years Used Date Smoking Tobacco: Never Assessed Sex Assigned at Date Recorded Not on file documented as of this encounter Progress Notes Lamont Ramos - 11/04/2009 5:30 AM CDT FINAL Please see T-note. Azul Forrester is a 29-year-old female who presents with 2-day history of dysuria. She states that she started taking an [id number] medication, Urispas with improvement of her symptoms. [...] MD MT: PP Name: AZUL FORRESTER Account: [id number] : 1980 Visit Date: 10/30/2009 Document: [id number] cc: MAGGI FULLER MD documented in this encounter Plan of Treatment Not on filedocumented as of this encounter Visit Diagnoses Not on filedocumented in this encounter
--- OUTSIDE RECORDS SUMMARY | 2021-12-22 08:46 | XMS_ITS | Encounter Summary ---
:1980 Author Organization [place] Address [address] [facility] [place] [address] Care Team Providers Name Role Phone Unavailable [...] note. Mary Codes - Daily Hospital Codes [address] Interval History - Interval History: No overnight [...] Discharged to home today. Follow up at [facility] in 7 -10 days. Signatures RADHA NAVARRO)[Signed 09:16] Authored: Interval History, Review of Systems, Physical Exam, Vital Signs/Labs/Imaging/Culture Review, VS, Assessment and Plan SHARYN SALEEM)[Signed 11:28] Authored: ATTENDING PHYSICIAN, Mary Codes documented in this encounter Plan of Treatment Not on filedocumented as of this encounter Visit Diagnoses Not on filedocumented in this encounter
--- OUTSIDE RECORDS SUMMARY | 2021-12-22 08:46 | XMS_ITS | Encounter Summary ---
:1980 Author Organization [place] Address [address] [facility] [place] [address] Care Team Providers Name Role Phone Unavailable Primary Care Provider Unavailable Encounter Details Date Type Department Care Team Description 10/18/2009 Historic Notes INTERFACED REPORT Kev Rios MD [facility] ORTH OPEDICS [address] [place], [place] [address] (Wo rk) Social History [...] next couple of days Kev Rios MD [phone] [Signature] Author: KEV RIOS) [Signed 08:11] documented in this encounter Plan of Treatment Not on filedocumented as of this encounter Visit Diagnoses Not on filedocumented in this encounter
--- OUTSIDE RECORDS SUMMARY | 2021-12-22 08:46 | XMS_ITS | Encounter Summary ---
:1980 Author Organization [place] Address [facility] [place] [address] Care Team Providers Name Role Phone Unavailable Primary Care Provider Unavailable Encounter Details Date Type Department Care Team Description 10/17/2009 Results Only [facility] [place] Poll mirza, Bebeto Hartman MD Radiology Results [address] [place], [place] [address] (Wo rk) Social History Tobacco Use Types [...]
--- OUTSIDE RECORDS SUMMARY | 2021-12-22 08:46 | XMS_ITS | Encounter Summary ---
:1980 Author Organization [place] Address [facility] [place] [address] Care Team Providers Name Role Phone Unavailable Primary Care Provider Unavailable Encounter Details Date Type Department Care Team Description 10/14/2009 Historic Results INTERFACED REPORT Kev Rios MD [facility] ORTH OPEDICS [address] [place], [place] [address] (Wo rk) Social History [...]
--- OUTSIDE RECORDS SUMMARY | 2021-12-22 08:46 | XMS_ITS | Encounter Summary ---
:1980 Author Organization [place] Address [address] [place] [address] Care Team Providers Name Role Phone Unavailable Primary Care Provider Unavailable Encounter Details Date Type Department Care Team Description 10/17/2009 Historic Notes INTERFACED REPORT Jana Sullivan MD [facility] [address] [place], [place] [address] (Wo rk) Social History Tobacco Use Types [...] minimize ambulation as able full note dictated #[id number] Addendum Section 09:35 Entered By:ROB WEAVER Patient [...]
--- OUTSIDE RECORDS SUMMARY | 2021-12-22 08:46 | XMS_ITS | Encounter Summary ---
:1980 Author Organization [place] Address [facility] [place] [address] Care Team Providers Name Role Phone Unavailable Primary Care Provider Unavailable Encounter Details Date Type Department Care Team Description 10/19/2009 Discharge Summary [facility] Myles De Oliveira (Diesel Roller Operator) [facility] MD Devan Results [address] [place], [place] [phone] Social History Tobacco Use Types Packs/Day Years [...] surgical floor. Her primary care group from [facility] was asked to follow the patient as well given her history of anxiety. On postoperative day #1, she had moderate pain and required the use of Dilaudid AUTOMATION DRIVER for pain control. She had some early [...] MD MT: DARLEEN Name: AZUL DINH Account: [id number] : 1980 Admit Date: [id number] Discharge Date: 10/19/2009 Document: [id number] cc: [facility] documented in this encounter Plan of Treatment Not on filedocumented as of this encounter Visit Diagnoses Not on filedocumented in this encounter
--- OUTSIDE RECORDS SUMMARY | 2021-12-22 08:46 | XMS_ITS | Encounter Summary ---
:1980 Author Organization [place] Address [address] [place] [address] Care Team Providers Name Role Phone Unavailable Primary Care Provider Unavailable Encounter Details Date Type Department Care Team Description 10/14/2009 Historic Notes INTERFACED REPORT Kev Rios MD [facility] ORTH OPEDICS [address] [place], [place] [address] (Wo rk) Social History [...] end of the week Kev Rios MD [phone] [Signature] Author: KEV RIOS) [Signed 06:54] documented in this encounter Plan of Treatment Not on filedocumented as of this encounter Visit Diagnoses Not on filedocumented in this encounter
--- OUTSIDE RECORDS SUMMARY | 2021-12-22 08:46 | XMS_ITS | Encounter Summary ---
:1980 Author Organization [place] Address [facility] [place] [address] Care Team Providers Name Role Phone Unavailable Primary Care Provider Unavailable Encounter Details Date Type Department Care Team Description 10/15/2009 Historic Design Agent INTERFACED REPORT InterfaceFranny MD Social History Tobacco Use Types Packs/Day Years Used Date Smoking Tobacco: Never Assessed Sex Assigned at Date Recorded Not on file documented as of this encounter Plan of Treatment Not on filedocumented as of this encounter Visit Diagnoses Not on filedocumented in this encounter
--- OUTSIDE RECORDS SUMMARY | 2021-12-22 08:47 | XMS_ITS | Encounter Summary ---
:1980 Author Organization [place] Address [facility] [place] [address] Care Team Providers Name Role Phone Unavailable Primary Care Provider Unavailable Encounter Details Date Type Department Care Team Description 06/30/2009 Office Visit-[facility] Orthopaedic Clinic Unknown, Provider [facility] 1st Floor, [address] [facility] [place] [phone] Social History Tobacco Use Types Packs/Day Years Used Date Smoking Tobacco: Never Assessed Sex Assigned at Date Recorded Not on file documented as of this encounter Progress Notes Unknown, Provider - 06/30/2009 8:19 AM CDT Pad Machine Operator: Rhonda Bush Status: Final - Signature Encounter: 30 Jun 2009 Type: U Ortho [place] Note Fax received from [employer] insurance for Approval on Fusion of Spine Lumbar surgery. Code [id number] Electronically signed by:Rhonda Bush Jun 30 2009 8:20AM DRAPERY EXAMINER Administrative documented in this encounter Plan of Treatment Not on filedocumented as of this encounter Visit Diagnoses Not on filedocumented in this encounter
--- OUTSIDE RECORDS SUMMARY | 2021-12-22 08:47 | XMS_ITS | Encounter Summary ---
:1980 Author Organization [place] Address [address] [place] [address]. [place] [address] Care Team Providers Name Role Phone Unavailable Primary Care Provider Unavailable Encounter Details Date Type Department Care Team Description 07/01/2009 Office Visit-[facility] Orthopaedic Clinic Bebeto Roth MD [address] 1st Floor, [id number] [place] [phone] Social History Tobacco Use Types Packs/Day Years Used Date Smoking Tobacco: Never Assessed Sex Assigned at Date Recorded Not on file documented as of this encounter Progress Notes Bebeto Roth - 07/01/2009 10:24 AM CDT Supervisor Hand Workers: Bebeto Roth Status: Final - Signature Encounter: 01 Jul 2009 Type: U Ortho Letter Department of Orthopaedic Surgery Administration: Suite [facility], [address] [place] [phone] or [phone] Appointments [email or web address] Mail Address: [place] [address], [address] [place] [address] Shmuel Ruiz MD General Orthopaedics Marcella Wilson [...] Pediatric July 01, 2009 Azul Garg [address] [facility] [place] [address] RE: Azul Boston : DOS: July 01, [...] Service DP:11 cc: Candy Jensen MD, Resident [facility] [address] [place] [address] Electronically signed by:Bebeto Roth M.D. Jul 08 2009 9:14AM HOMELAND SECURITY PROGRAM SPECIALIST documented in this encounter Plan of Treatment Not on filedocumented as of this encounter Visit Diagnoses Not on filedocumented in this encounter
--- OUTSIDE RECORDS SUMMARY | 2021-12-22 08:47 | XMS_ITS | Encounter Summary ---
:1980 Author Organization [place] Address [facility] [place] [address] Care Team Providers Name Role Phone Unavailable Primary Care Provider Unavailable Encounter Details Date Type Department Care Team Description 10/12/2009 Historic Results Orthopaedic Clinic Bebeto Roth [place] Renzo Hartman MD [place] [address] 1[address] Floor, [address] [place], [place] [address] [address] [place], [place] [phone] Social History Tobacco Use [...] LAB - BEAKER POCT Performing Organization Address City/[facility]/ZIP Code Phon e Number MISYS Routine UA with microscopic (10/12/2009 10:17 AM CDT) Component Value Ref Test Analysis Performed At [facility] Method Time Signature Source Catheterized MISYS Urine Color Urine Straw MISYS Appearance Urine Clear MISYS Glucose Urine Negative NEG MISYS mg/dL Bilirubin Urine Negative NEG MISYS Ketones Urine Negative NEG MISYS mg/dL Specific [place] 1.005 1.003 - MISYS Urine 1.035 Blood [...] LAB - URINE ORDERABLES Performing Organization Address City/[facility] Phon e Number MISYS Urine culture (10/12/2009 10:17 AM CDT) Component Value Ref Test Analysis Performed At [facility] Method Time Signature Specimen Catheterized MISYS Description Urine Culture Micro No growth MISYS Micro Report FINAL 10/13/2009 MISYS Status Specimen Anatomical Collection Method Collection Time Receive d Time (Source) Location / / Volume Laterality 10/12/2009 10:17 10/12/2009 AM CDT 10:19 AM CDT Bebeto Roth MD LAB - MICRO GENERAL ORDERABL ES Performing Organization Address City/[facility]/ZIP Code Phon e Number MISYS (ABNORMAL) Routine UA with microscopic (10/12/2009 8:29 AM CDT) Component Value Ref Test Analysis Performed At [facility] Range Method Time Signature Source Unspecified MISYS Urine Color Urine Yellow MISYS Appearance Urine Clear MISYS Glucose Urine Negative NEG MISYS mg/dL Bilirubin Urine Negative NEG MISYS Ketones Urine Negative NEG MISYS mg/dL Specific [place] 1.018 1.003 - MISYS Urine 1.035 Blood [...]
--- OUTSIDE RECORDS SUMMARY | 2021-12-22 08:47 | XMS_ITS | Encounter Summary ---
:1980 Author Organization [place] Address [address] [facility] [place] [address] Care Team Providers Name Role Phone Unavailable [...] seroquel. Admission - Date: 22:00 - Service: [facility]. - Chief Complaint: Back pain. [...]
--- OUTSIDE RECORDS SUMMARY | 2021-12-22 08:47 | XMS_ITS | Encounter Summary ---
:1980 Author Organization [place] Address [facility] [place] [address] Care Team Providers Name Role Phone Unavailable Primary Care Provider Unavailable Encounter Details Date Type Department Care Team Description 06/24/2009 Office Visit-[facility] Orthopaedic Clinic Bebeto Rothide Renzo Hartman MD [address] 1st Floor, [id number] [place] [phone] Social History Tobacco Use Types Packs/Day Years Used Date Smoking Tobacco: Never Assessed Sex Assigned at Date Recorded Not on file documented as of this encounter Progress Notes Bebeto Roth - 06/24/2009 8:00 AM CDT Rn Oncology Research: Bebeto Roth Status: Final - Signature Encounter: 24 Jun 2009 Type: U Ortho Visit Department of Orthopaedic Surgery Administration: [address], [address] [place] [address] or [phone] Appointments [email or web address] Mail Address: [address], [address] [place] [address] Shmuel Ruiz MD General Orthopaedics Marcella Wilson [...] 06/24/2009 REFERRING PHYSICIAN: Candy Gutierrez M.D., of [facility]. CHIEF COMPLAINT: Low back pain and [...] who has done adjustments. 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 She lives with [...] Service DP:11 cc: Candy Gutierrez M.D., Resident [facility] Electronically signed by:Bebeto Roth M.D. Jun 25 2009 2:45PM ELECTRICAL TECH/PROJECT MANAGER documented in this encounter Plan of Treatment Not on filedocumented as of this encounter Visit Diagnoses Not on filedocumented in this encounter
--- OUTSIDE RECORDS SUMMARY | 2021-12-22 08:47 | XMS_ITS | Encounter Summary ---
:1980 Author Organization [place] Address [address] [facility] [place] [address] Care Team Providers Name Role Phone Unavailable Primary Care Provider Unavailable Encounter Details Date Type Department Care Team Description 10/12/2009 Historic Notes INTERFACED REPORT Interface, Transcript on, Social History Tobacco Use Types Packs/Day Years Used Date Smoking Tobacco: Never Assessed Sex Assigned at Date Recorded Not on file documented as of this encounter Progress Notes Interface, Impression Printer - 04/30/2010 8:57 PM CDT General Information [...] none Considerations - Developmental none Considerations - Scientology none Considerations Signatures TAYLOR YAZAN (PT)[Signed 09:16] Authored: General Information, Role Relationships/Living Environment EZRA HERNANDEZ (RN)[Signed 19:02] Authored: Health and Illness, Review of Systems, Learning Assessment Interface, Impression Printer - 04/30/2010 8:57 PM CDT Progress Note [...] dry heaves. She is afraid to use DELINQUENCY PREVENTION SOCIAL WORKER as she states she once overdosed on tyelol by accident because she misread the dosage on the bottle, she is very fearful of getting too much pain medication. Also, many concerns about surgery, nerves, etc. DELINQUENCY PREVENTION SOCIAL WORKER and IVF infusing to L hand. Incision [...] with effect. Educated pt on use of DELINQUENCY PREVENTION SOCIAL WORKER and reassured and explain how OD is [...]
--- OUTSIDE RECORDS SUMMARY | 2021-12-22 08:47 | XMS_ITS | Encounter Summary ---
:1980 Author Organization [place] Address [facility] [place] [address] Care Team Providers Name Role Phone Unavailable Primary Care Provider Unavailable Encounter Details Date Type Department Care Team Description 10/08/2009 Historic Results INTERFACED REPORT Yuri Gray MD [address] [facility] [place] [address] (Wo rk) Social History Tobacco [...] LAB - BLOOD ORDERABLES Performing Organization Address City/State/[facility] Code Phon e Number MISYS INR (10/08/2009 [...]
--- OUTSIDE RECORDS SUMMARY | 2021-12-22 08:47 | XMS_ITS | Encounter Summary ---
:1980 Author Organization [place] Address [facility] [place] [address] Care Team Providers Name Role Phone Unavailable Primary Care Provider Unavailable Encounter Details Date Type Department Care Team Description 06/30/2009 Results Only [facility] Poll y, Bebeto Hartman MD Radiology Results [address] [place], [place] [phone] (Wo rk) Social History Tobacco Use Types [...]
--- OUTSIDE RECORDS SUMMARY | 2021-12-22 08:47 | XMS_ITS | Encounter Summary ---
:1980 Author Organization [place] Address [address] [facility] [place] [address] Care Team Providers Name Role Phone Unavailable Primary Care Provider Unavailable Encounter Details Date Type Department Care Team Description 09/22/2009 Office Visit-[facility] INTERFACE P DEPT Amanda Brown MD [facility] [address] [place], [place] [phone] (Wo rk) Social History Tobacco Use Types Packs/Day Years Used Date Smoking Tobacco: Never Assessed Sex Assigned at Date Recorded Not on file documented as of this encounter Progress Notes Amanda Brown - 09/22/2009 9:40 AM CDT Steel Erector: Kevin Amanda Status: Final Encounter: 22 Sep [...] TABLET EVERY MORNING NEEDED.; Rx Saline Nasal [place] 0.65 % Solution;USE 1 SPRAY IN EACH [...] of exam: 09/22/09 Surgery Date: 10/13/09 Location: [place] Pre-op diagnosis: Scoliosis Chief Complaint: Pain HPI: [...] By: Amanda Brown MD,Resident; 09/22/2009 3:16 PM DIE DRAWING CHECKER; Author. Signed By: Luigi Solano ; 09/22/2009 9:41 PM DIE DRAWING CHECKER. documented in this encounter Plan of Treatment Not on filedocumented as of this encounter Visit Diagnoses Not on filedocumented in this encounter
--- OUTSIDE RECORDS SUMMARY | 2021-12-22 08:47 | XMS_ITS | Encounter Summary ---
:1980 Author Organization [place] Address [address] [facility] [place] [address] Care Team Providers Name Role Phone Unavailable Primary Care Provider Unavailable Encounter Details Date Type Department Care Team Description 06/24/2009 Office Visit-[facility] INTERFACE [facility] DEPT Provider, [facility] Nurs e Social History Tobacco Use Types Packs/Day Years Used Date Smoking Tobacco: Never Assessed Sex Assigned at Date Recorded Not on file documented as of this encounter Progress Notes Provider, [facility] Nurse - 06/24/2009 8:00 AM CDT Ged Instructor: Nasrin Demarco Status: Final Encounter: 24 Jun [...] By: Nasrin Demarco RN; 06/24/2009 4:16 PM CROWN WHEEL ASSEMBLER. Provider, [facility] Nurse - 06/24/2009 8:00 AM CDT Ged Instructor: Melvi Juárez Status: Final Encounter: 24 Jun 2009 Type: Rooming Note Reason For Visit Scoliosis eval. Do you have any other appointments, tests or procedures within the [employer] system for this same day? 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 Vital Signs Recorded by Mlevi Juárez on 24 Jun 2009 07:59 AM [...] TABLET EVERY MORNING NEEDED.; Rx Saline Nasal [place] 0.65 % Solution;USE 1 SPRAY IN EACH NOSTRIL TWICE DAILY.; Rx Tretinoin 0.025 % Cream;APPLY SPARINGLY TO AFFECTED AREA(S) ONCE DAILY AT BEDTIME.; Rx AAA-MED RECONCILE;per pt.; RPT. Med list offered and patient declined. Signature Signed By: Melvi Juárez LP; 06/24/2009 8:05 AM CROWN WHEEL ASSEMBLER. documented in this encounter Plan of Treatment Not on filedocumented as of this encounter Visit Diagnoses Not on filedocumented in this encounter
--- OUTSIDE RECORDS SUMMARY | 2021-12-22 08:47 | XMS_ITS | Encounter Summary ---
:1980 Author Organization [place] Address Counts include 234 beds at the [facility]0 [facility] [place] [address] Care Team Providers Name Role Phone Unavailable Primary Care Provider Unavailable Encounter Details Date Type Department Care Team Description 10/13/2009 Historic Results INTERFACED REPORT Kev Rios MD [facility] ORTH OPEDICS [address] [place], [place] [phone] (Wo rk) Social History [...]
--- OUTSIDE RECORDS SUMMARY | 2021-12-22 08:47 | XMS_ITS | Encounter Summary ---
:1980 Author Organization [place] Address [facility]0 [facility] [place] [address] Care Team Providers Name Role Phone Unavailable Primary Care Provider Unavailable Encounter Details Date Type Department Care Team Description 10/12/[address] [facility] Myles De Oliveira (It Quality Assurance Analyst) [facility] MD Devan Results [address] [place], [place] [phone] Social History Tobacco Use Types Packs/Day Years [...] substance. SURGEON: Myles De Oliveira Jr., MD. NEUROLOGY EPILEPSY PHYSICIAN: Kev Rios MD. SPONGE AND NEEDLE COUNT: [...] and position prone on the Chriss table 4-city auditor frame. She was then prepared and draped in the usual sterile fashion. Because of some posterior acne on her scan, 2 separate sterile preps were done with DuraPrep. The spine was then exposed from T10 through L3. Intraoperative imaging was used to confirm the appropriate level of dissection. Once the spine was exposed, the tracking arc for the Respi navigation system was placed on the spinous [...] Once this was completed, then the left-sided jim was cantilevered into place from thebottom to [...] MD MT: MAYRA Name: AZUL FORRESTER Account: [id number] : 1980 Procedure Date: 10/12/2009 Document: [id number] cc: Azul Forrester [facility] documented in this encounter Plan of Treatment Not on filedocumented as of this encounter Visit Diagnoses Not on filedocumented in this encounter
--- OUTSIDE RECORDS SUMMARY | 2021-12-22 08:47 | XMS_ITS | Encounter Summary ---
:1980 Author Organization [place] Address [facility] [place] [address] Care Team Providers Name Role Phone Unavailable Primary Care Provider Unavailable Encounter Details Date Type Department Care Team Description 10/08/2009 Office Visit-[facility] INTERFACE [facility] DEPT Yuri Gray MD [address] [place], [place] [address] (Wo rk) Social History Tobacco Use Types Packs/Day Years Used Date Smoking Tobacco: Never Assessed Sex Assigned at Date Recorded Not on file documented as of this encounter Progress Notes Yuri Gray - 10/08/2009 4:00 PM CDT Emergency Room Tech: Yuri Gray Status: Final Encounter: 08 Oct [...] TABLET EVERY MORNING NEEDED.; Rx Saline Nasal [place] 0.65 % Solution;USE 1 SPRAY IN EACH NOSTRIL TWICE DAILY.; Rx Tretinoin 0.025 % Cream;APPLY SPARINGLY TO AFFECTED AREA(S) ONCE DAILY AT BEDTIME.; Rx AAA-MED RECONCILE;per pt.; RPT. 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 Vital Signs Recorded by [email or web address] on 08 Oct 2009 04:07 PM BP:118/85, LUE, Sitting, HR: 94 b/min, L Radial, Normal, Temp: 98.3 F, Oral, Height: 61.5 in, Weight: 153.6 lb, BMI: 28.6 kg/m2. Recorded by [email or web address] on 08 Oct 2009 04:14 PM BP:121/82, LUE, Sitting. SOAP HPI This 29 year old female presents as an established patient of Dr. JONNY RUIZ,[facility] here to do some blood tests for [...] as per form. Will fax results to [phone] as per patients wish. Patient denied genitourinary [...] By: Yuri Gray MD,Resident; 10/09/2009 3:48 PM SHEET METAL ASSEMBLER; Author. Signed By: Keri Elias M.D.; 10/09/2009 3:52 PM SHEET METAL ASSEMBLER; Author. documented in this encounter Plan of Treatment Not on filedocumented as of this encounter Visit Diagnoses Not on filedocumented in this encounter
--- OUTSIDE RECORDS SUMMARY | 2021-12-22 08:47 | XMS_ITS | Encounter Summary ---
:1980 Author Organization [place] Address [address] [facility] [place] [address] Care Team Providers Name Role Phone Unavailable Primary Care Provider Unavailable Encounter Details Date Type Department Care Team Description 05/18/2009 Office Visit-[facility] INTERFACE [facility] DEPT Candy Jensen Social History Tobacco Use Types Packs/Day Years Used Date Smoking Tobacco: Never Assessed Sex Assigned at Date Recorded Not on file documented as of this encounter Progress Notes Candy Jensen MD - 05/18/2009 4:00 PM CDT Director Water And Waste Services: Candy Jensen Status: Final Encounter: 18 May [...] on the face. The patient was given [id number] mg daily, she had been using it [...] By: Candy Jensen M.D.,Resident; 05/21/2009 3:59 PM PIPE OUT WORKER; Author. Signed By: Keri Elias M.D.; 05/25/2009 8:28 AM PIPE OUT WORKER; Author. documented in this encounter Plan of Treatment Not on filedocumented as of this encounter Visit Diagnoses Not on filedocumented in this encounter
--- OUTSIDE RECORDS SUMMARY | 2021-12-22 08:47 | XMS_ITS | Encounter Summary ---
:1980 Author Organization [place] Address [address] [facility] [place] [address] Care Team Providers Name Role Phone Unavailable Primary Care Provider Unavailable Encounter Details Date Type Department Care Team Description 05/18/2009 Office Visit-[facility] INTERFACE [facility] DEPT Provider, [facility] Nurs e Social History Tobacco Use Types Packs/Day Years Used Date Smoking Tobacco: Never Assessed Sex Assigned at Date Recorded Not on file documented as of this encounter Progress Notes Provider, [facility] Nurse - 05/18/2009 4:00 PM CDT Egg Candler: Nelson Holliday Status: Final Encounter: 18 May 2009 Type: FM Letters [employer] Letters Ms. AZUL FORRESTER [address] [place] [address] May 18, 2009 Dear Ms. AZUL FORRESTER [...] PAP NIL Patient Name: AZUL FORRESTER MR#: [id number] Specimen #: [id number] Collected: 04/07/2009 Received: 04/08/2009 Reported: 04/09/2009 11:39 Ordering Phy(s): JULES CAMPUZANO SPECIMEN/STAIN PROCESS: Pap thin layer prep screening (SurePath) Pap-Cyto x 1, Digene Reflex HPV x 1 SOURCE: Cervical Pap thin layer prep screening (SurePath) SPECIMEN ADEQUACY: Satisfactory for evaluation. -Transformation zone component present. CYTOLOGIC INTERPRETATION: Negative for Intraepithelial Lesion or Malignancy Electronically signed out by: APOLLO Moulton (ASCP) Processed and screened at [facility] CLINICAL HISTORY: LMP: 03/30/09 TESTING LAB LOCATION: [facility], [address] [address] COLLECTION SITE: Client: [facility] Location: [facility]. Signature Signed By: Nelson Holliday [facility]; 05/18/2009 3:46 PM AIRCRAFT LAY OUT WORKER. documented in this encounter Plan of Treatment Not on filedocumented as of this encounter Visit Diagnoses Not on filedocumented in this encounter
--- OUTSIDE RECORDS SUMMARY | 2021-12-22 08:47 | XMS_ITS | Encounter Summary ---
:1980 Author Organization [place] Address [address] [place] [address] Care Team Providers Name Role Phone Unavailable Primary Care Provider Unavailable Encounter Details Date Type Department Care Team Description 10/11/2009 Historic Results Orthopaedic Clinic Bebeto Roth [place] Renzo Hartman MD [place] [address] [address] 1st Floor, [address] [place] [id number] [address] [address] [place], [place] [phone] Social History Tobacco Use [...] Crossmatch red cells (10/11/2009 9:21 AM CDT) [facility] Method Time Signature ABO O MISYS RH(D) Pos MISYS Antibody Neg MISYS Screen Blood Red Cells MISYS Component Type Units Ordered 2 MISYS Specimen 10/14/2009 MISYS Expires Unit Number [id number] MISYS Blood Red Blood MISYS Component Cells Type Leukocyte Reduced Status of No longer MISYS Unit available 10/15/2009 0300 Unit Number [id number] MISYS Blood Red Blood MISYS Component Cells [...]
--- OUTSIDE RECORDS SUMMARY | 2021-12-22 08:47 | XMS_ITS | Encounter Summary ---
:1980 Author Organization [place] Address [address] [place] [address] Care Team Providers Name Role Phone Unavailable Primary Care Provider Unavailable Encounter Details Date Type Department Care Team Description 04/07/2009 Office Visit-[facility] INTERFACE [facility] DEPT Candy Jensen Social History Tobacco Use Types Packs/Day Years Used Date Smoking Tobacco: Never Assessed Sex Assigned at Date Recorded Not on file documented as of this encounter Progress Notes Candy Jensen MD - 04/07/2009 2:20 PM CST Assistant Professor Of Business: Candy Jensen Status: Final Encounter: 07 Apr [...] By: Candy Gutierrez M.D.,Resident; 04/07/2009 5:47 PM PIPE CREW FOREMAN; Author. Signed By: Cindy Pope M.D.; 04/07/2009 9:21 PM PIPE CREW FOREMAN; Author. documented in this encounter Plan of Treatment Not on filedocumented as of this encounter Visit Diagnoses Not on filedocumented in this encounter
--- OUTSIDE RECORDS SUMMARY | 2021-12-22 08:47 | XMS_ITS | Encounter Summary ---
:1980 Author Organization [place] Address [facility] [place] [address] Care Team Providers Name Role Phone Unavailable Primary Care Provider Unavailable Encounter Details Date Type Department Care Team Description 10/12/2009 Results Only [facility] Poll y, Bebeto Hartman MD Radiology Results [address] [place], [place] [id number] (Wo rk) Social History Tobacco Use Types Packs/Day Years Used Date Smoking Tobacco: Never Assessed Sex Assigned at Date Recorded Not on file documented as of this encounter Plan of Treatment Not on filedocumented as of this encounter Procedures Procedure Name Priority Date/Time Associated Diagnosis Comme [facility] X-RAY SPINE Routine 10/12/2009 2:54 PM [...]
--- OUTSIDE RECORDS SUMMARY | 2021-12-22 08:47 | XMS_ITS | Encounter Summary ---
:1980 Author Organization [place] Address [address] [facility] [place] [address] Care Team Providers Name Role Phone Unavailable Primary Care Provider Unavailable Encounter Details Date Type Department Care Team Description 06/24/2009 Results Only [facility] Bebeto Roth MD [facility] Results [address] [place], [place] [id number] (Wo rk) Social History Tobacco Use Types [...]
--- OUTSIDE RECORDS SUMMARY | 2021-12-22 08:48 | XMS_ITS | Encounter Summary ---
:1980 Author Organization [place] Address [address] [facility] [place] [address] Care Team Providers Name Role Phone Unavailable [...] 04/07/2009 3:27 PM Results for this PCR WEAVING INSTRUCTOR procedure are i n the results section. HIV 1 AND 2 ANTIBODY Routine 04/07/2009 3:27 PM R esults for this ([facility]) WEAVING INSTRUCTOR procedure are i n the results section. HEPATITIS C ANTIBODY Routine 04/07/2009 3:27 PM R esults for this WEAVING INSTRUCTOR procedure are i n the results section. HEPATITIS B SURFACE Routine 04/07/2009 3:27 PM Re sults for this ANTIBODY WEAVING INSTRUCTOR procedure are i n the results section. HEPATITIS B SURFACE Routine 04/07/2009 3:27 PM Re sults for this ANTIGEN WEAVING INSTRUCTOR procedure are i n the results section. CHLAMYDIA TRACHOMATIS Routine 04/07/2009 3:27 PM Results for this PCR WEAVING INSTRUCTOR procedure are i n the results section. documented in this encounter Results Chlamydia trachomatis PCR (04/07/2009 3:27 PM WEAVING INSTRUCTOR) Component Value Ref Test Analysis Performed At [facility] Range Method Time Signature Specimen Cervical MISYS Description Chlamydia Negative for C. MISYS Trachomatis PCR trachomatis rRNA by data processing operator mediated amplification. Comment: A negative result by data processing operator medi ated amplification does not preclude the presence of C. trachomatis infection be cause results are dependent on proper and adequate collection, absence of inh ibitors, and sufficient rRNA to be detected. Specimen Anatomical Collection Method Collection Time Receive d Time (Source) Location / / Volume Laterality 04/07/2009 3:27 PM 0 3:32 WEAVING INSTRUCTOR PM WEAVING INSTRUCTOR Candy Jensen LAB - MICRO GENERAL ORDERABL ES Performing Organization Address [facility] Code Phon e Number MISYS Neisseria gonorrhoeae PCR (04/07/2009 3:27 PM WEAVING INSTRUCTOR) [facility] Method Time Signature Specimen Cervical MISYS Descrip N Gonorrhea Negative for N. MISYS PCR gonorrhoeae rRNA by data processing operator mediated amplification. Comment: A negative result by data processing operator medi ated amplification does not preclude the presence of N. gonorrhoeae infection be cause results are dependent on proper and adequate collection, absence of inh ibitors, and sufficient rRNA to be detected. Specimen Anatomical Collection Method Collection Time Receive d Time (Source) Location / / Volume Laterality 04/07/2009 3:27 PM 0 3:32 WEAVING INSTRUCTOR PM WEAVING INSTRUCTOR Candy Jensen LAB - MICRO GENERAL ORDERABL ES Performing Organization Address [facility] Phon e Number MISYS Hepatitis B surface antibody (04/07/2009 3:27 PM WEAVING INSTRUCTOR) athologist Signature Hep B Surface 993.0 MISYS Leatha Comment: Positive, Patient is considered to be im mune to infection with hepatitis B when the value is greater than or equal to 1 2.0 mlU/mL. Specimen Anatomical Collection Method Collection Time Receive d Time (Source) Location / / Volume Laterality 04/07/2009 3:27 PM 0 3:32 WEAVING INSTRUCTOR PM WEAVING INSTRUCTOR Candy Odellkell Howard LAB - BLOOD ORDERABLES Performing Organization Address [facility]/ZIP Code Phon e Number MISYS Hepatitis B surface antigen (04/07/2009 3:27 PM WEAVING INSTRUCTOR) athologist Signature Hep B Surface Negative NEG MISYS Agn Specimen Anatomical Collection Method Collection Time Receive d Time (Source) Location / / Volume Laterality 04/07/2009 3:27 PM 0 3:32 WEAVING INSTRUCTOR PM WEAVING INSTRUCTOR Candy Esther Christenboodaniella LAB - BLOOD ORDERABLES Performing Organization Address [facility] Phon e Number MISYS Hepatitis C antibody (04/07/2009 3:27 PM WEAVING INSTRUCTOR) athologist Signature Hepatitis C Negative NEG MISYS Antibody Specimen Anatomical Collection Method Collection Time Receive d Time (Source) Location / / Volume Laterality 04/07/2009 3:27 PM 0 3:33 WEAVING INSTRUCTOR PM WEAVING INSTRUCTOR Candy Jensen LAB - BLOOD ORDERABLES Performing Organization Address [facility] Phon e Number MISYS HIV 1 and 2 Antibody (04/07/2009 3:27 PM WEAVING INSTRUCTOR) athologist Signature HIV 1&2 Negative NEG MISYS Antibody Specimen Anatomical Collection Method Collection Time Receive d Time (Source) Location / / Volume Laterality 04/07/2009 3:27 PM 0 3:33 WEAVING INSTRUCTOR PM WEAVING INSTRUCTOR Candy Worthyaj LAB - BLOOD ORDERABLES Performing Organization Address [facility] Phon e Number MISYS documented in this encounter Visit Diagnoses Not on filedocumented in this encounter
--- OUTSIDE RECORDS SUMMARY | 2021-12-22 08:48 | XMS_ITS | Encounter Summary ---
:1980 Author Organization [place] Address [facility] [place] [address] Care Team Providers Name Role Phone Unavailable [...] 12:00 AM Re sults for this SCREEN INSPECTOR PRECISION ASSEMBLY procedure are i n the results section. documented in this encounter Results A THIN LAYER PAP SCREEN (04/07/2009 12:00 AM INSPECTOR PRECISION ASSEMBLY) Component Value Ref Test Analysis Performed At [facility] Range Method Time Signature PAP NIL COPATH Copath Report COPATH Patient Name: AZUL FORRESTER MR#: [id number] Specimen #: [id number] Collected: 04/07/2009 Received: 04/08/2009 Reported: 04/09/2009 11:39 [...] APOLLO [place] (ASCP) Processed and screened at [facility] diane [facility] CLINICAL HISTORY: LMP: 03/30/09 TESTING LAB LOCATION: [facility], [address] ??[phone] COLLECTION SITE: Client: ??[facility] Location: [facility] (B) Specimen (Source) Anatomical Collection Method Collection Time Re ceived Time Location / / Volume Laterality 04/07/2009 04/08/2009 10:1 0 AM INSPECTOR PRECISION ASSEMBLY Jules Campuzano LABORATORY Performing Organization Address City/State/ZIP Code Phon e Number COPATH documented in this encounter Visit Diagnoses Not on filedocumented in this encounter
[2021-12-22 11:10] LABS: Alanine Aminotransferase* 10 U/L (4-35); Aspartate Amino Transferase* 15 U/L (12-35)
[2021-12-22 14:37] LABS: Bilirubin Direct* 0.1 mg/dL (0.0-0.5); Bilirubin Total* 0.3 mg/dL (0.1-1.5)
[2021-12-23 23:12] LABS: Bile Acids, Total <1 umol/L (0-10)
== END 2021-12-22 08:37 | disposition home or self-care (01) ==
PROVIDERS: Visit Provider Obstetrics & Gynecology
DX: O09.523 Supervision of elderly multigravida, third trimester (principal); Z3A.33 33 weeks gestation of pregnancy; L29.9 Pruritus, unspecified
CPT/HCPCS: 82239; 82247; 82248; 84450; 84460

== ENCOUNTER 2022-01-07 13:01 | Outpatient (CLI) | payer OTHER, SELFPAY ==
--- NOTE | 2022-01-07 13:00 | CRLHL7_ITS ---
For Patients: As a result of the Century Cures Act, medical imaging exams and procedure reports are released immediately into your electronic medical record. You may view this report before your referring provider. If you have questions, please contact your health care provider. INDICATION: Gestational diabetes TECHNIQUE: Real time carson scale imaging of the fetus was performed. COMPARISON: 12/17/2021 FINDINGS: Sonographic imaging demonstrates a single living intrauterine gestation. Fetus demonstrates a regular cardiac rate of 131 beats per minute. Fetus has a vertex position. The placenta lies left posterior. Amniotic fluid volume appears normal and there is a single deepest pocket of 6.5 cm. The estimated weight is 2892gm which lies at the 62nd %. On the prior OB ultrasound dated 12/17/2021 the estimated weight was at the 56th percentile. BPD 29th percentile. HC 36th percentile. AC 94th percentile. FL 7th percentile. HC/AC ratio 0.96 (0.93-1.09). The fetus was active. No breathing movements. There was normal flexion and extension of the trunk and extremities. IMPRESSION: Biophysical profile 07/21. No respiratory activity. Sonographic gestational age 35 weeks 5 days and sonographic due date 02/06/2022. Good correlation with dates. Normal interval growth. Estimated weight 62nd percentile. Abdominal circumference 94th percentile. Dictated by Bebeto Kennedy MD @ 01/07/2022 3:41:36 PM (Electronically Signed)
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
--- OUTSIDE RECORDS SUMMARY | 2022-01-07 13:11 | XMS_ITS | Encounter Summary ---
:1980 Author Organization [employer] Address [address] [place] [address] Care Team Providers Name Role Phone Zion Sorto MD Primary Care Provider Encounter Details Date Type Department Care Team Description 08/27/2013 Office Visit [facility] Bacterial vaginitis (Primary Dx); [address] Vaginal discharge [place], [place] [id number] Social History Tobacco Use Types Packs/Day Years Used Date Smoking Tobacco: Never Smokeless Tobacco: Never Alcohol Use Standard Drinks/Week Comments Not Asked 0 (1 standard drink = 0.6 oz pure alcoho l) Sex Assigned at Date Recorded Not on file documented as of this encounter Last Filed Vital Signs Vital Sign Reading Time Taken Comments Blood Pressure 110/76 08/27/2013 7:41 PM CDT Pulse 116 08/27/2013 7:41 PM CDT Temperature 37.4 ??C (99.3 ??F) 08/27/2013 7:41 PM CDT Respiratory Rate 16 08/27/2013 7:41 PM CDT Oxygen Saturation - - Inhaled Oxygen Concentration - - Weight 68.3 kg (150 lb 9.6 oz) 08/27/2013 7:41 PM CDT Height 160 cm (5' 3) 08/27/2013 7:41 PM CDT Body Mass Index 26.68 08/27/2013 7:41 PM CDT documented in this encounter Patient Instructions Patient InstructionsEdinson Bryant MD - 08/27/2013 8:20 PM CDT Images from the original note were not included. Bacterial Vaginosis: After Your Visit Your Care Instructions Bacterial vaginosis is a type of vaginal infection. It is caused by excess growth of certain bacteria that are normally found in the vagina. Symptoms can include itching, swelling, pain when you urinate or have sex, and a carson or yellow discharge with a fishy odor. It is not considered an infection that is spread through sexual contact. Although symptoms can be annoying and uncomfortable, bacterial vaginosis does not usually cause other health problems. However, if you have it while you are , it can cause complications. While the infection may go away on its own, most doctors use antibiotics to treat it. You may have been prescribed pills or vaginal cream. With treatment, bacterial vaginosis usually clears up in 5 to 7 days. Follow-up care is a harris part of your treatment and safety. Be sure to make and go to all appointments, and call your doctor if you are having problems. It???s also a good idea to know your test resultsand keep a list of the medicines you take. How can you care for yourself at home? ?? Take your antibiotics as directed. Do not stop taking them just because you feel better. You needto take the full course of antibiotics. ?? Do not eat or drink anything that contains alcohol if you are taking metronidazole (Flagyl). ?? Keep using your medicine if you start your period. Use pads instead of tampons while using a vaginal cream or suppository. Tampons can absorb the medicine. ?? Wear loose cotton clothing. Do not wear nylon and other materials that hold body heat and moisture close to the skin. ?? Do not scratch. Relieve itching with a cold pack or a cool bath. ?? Do not wash your vaginal area more than once a day. Use plain water or a mild, unscented soap. Donot douche. When should you call for help? Watch closely for changes in your health, and be sure to contact your doctor if: ?? You have unexpected vaginal bleeding. ?? You have a fever. ?? You have new or increased pain in your vagina or pelvis. ?? You are not getting better after 1 week. Where can you learn more? Go to [employer] and enter X360 in the search box. Last Revised: June 29, 2012 ?? [id number] [employer], [employer]. documented in this encounter Progress Notes Edinson Bryant MD - 08/27/2013 9:58 PM CDT Subjective: Patient presents with vaginal discharge itching and odor for past couple of days. Deniesany abdominal pain, nausea, vomiting or dysuria. She is on minocycline for acne but no other antibiotics or new medications. No other complaints at this time. She has had bacterial vaginosis in the past and states that this is similar to how she presented. Blood pressure 110/76, pulse 116, temperature 99.3 ??F (37.4 ??C), temperature source Tympanic, resp. rate 16, height 5' 3 (1.6 m), weight 150 lb 9.6 oz (68.312 kg), unknown if currently . General no acute distress CV regular rate rhythm. Abdomen soft nontender bowel sounds present. No costovertebral angle tenderness. Vaginal exam cervix normal appearing white discharge noted Results for orders placed in visit on 08/27/13 WET PREP, VAGINAL Result Value Range CLUE CELLS Clue Cells Present (*) NCLUE TRICHOMONAS No Trichomonas Seen NTRIC YEAST No Yeast Found YN PH 5.0 (*) 3.5 - 4.5 Assessment plan #1 bacterial vaginosis patient started on metronidazole. Followup if not better in a week sooner if symptoms do not improve. Edinson Bryant MD This note created using speech-recognition software and may contain unintended word substitutions. documented in this encounter Nursing Notes Carleen Corona LPN - 08/27/2013 7:30 PM CDT 7:30 PM Carleen Corona LPN documented in this encounter Plan of Treatment Not on filedocumented as of this encounter Procedures Procedure Name Priority Date/Time Associated Diagnosis Comme nts VAGINAL WET PREP Waiting 08/27/2013 8:01 PM Vaginal discharge Results for this CDT procedure are i n the results section. documented in this encounter Results (ABNORMAL) WET PREP, VAGINAL (08/27/2013 8:01 PM CDT) [facility] Method Time Signature Clue Cells Clue Cells NCLUE [facility] Present (A) LABORATORIES Trichomonas No Trichomonas NTRIC [facility] Seen LABORATORIES Yeast No Yeast Found YN [facility] pH 5.0 (H) 3.5 - 4.5 [facility] Specimen Anatomical Collection Method Collection Time Receive d Time (Source) Location / / Volume Laterality 08/27/2013 8:01 PM 4 8:03 CDT PM CDT Narrative [facility] - 08/27/2013 8:05 PM C DT [facility] [address] [place] [id number] Edinson Bryant MD LAB_1 Performing Organization Address City/State/ZIP Code Phon e Number [facility] [phone] documented in this encounter Visit Diagnoses Diagnosis Bacterial vaginitis - Primary Vaginitis and vulvovaginitis, unspecifie d Vaginal discharge Leukorrhea, not specified as infective documented in this encounter Care Teams Retail Client Solutions Consultant Relationship Specialty Start Date End Date Zion Sorto MD PCP - General 07/16/04 06/04/14 [id number] [address] [place] [id number] documented as of this encounter
--- OUTSIDE RECORDS SUMMARY | 2022-01-07 13:11 | XMS_ITS | Encounter Summary ---
:1980 Author Organization [facility] Address [address] [place] [address] Care Team Providers Name Role Phone Judith Almeida MD Primary Care Provider Encounter Details Date Type Department Care Team Description 10/05/2002 Office Visit MALO MARBELLA DEFAULT Unassigned, ACUTE PH ARYNGITIS(SORE Provider THROAT) [address] [place] [address] Social History Tobacco Use Types Packs/Day Years Used Date Smoking Tobacco: Never Assessed Sex Assigned at Date Recorded Not on file documented as of this encounter Plan of Treatment Not on filedocumented as of this encounter Visit Diagnoses Diagnosis Acute pharyngitis documented in this encounter Care Teams Die Cast Die Maker Relationship Specialty Start Date End Date Judith Almeida MD PCP - General 11/28/01 07/15/04 [address] [place], [place] [address] documented as of this encounter
--- OUTSIDE RECORDS SUMMARY | 2022-01-07 13:11 | XMS_ITS | Encounter Summary ---
:1980 Author Organization [employer] Address [address] [place] [address] Care Team Providers Name Role Phone Judith Almeida MD Primary Care Provider Encounter Details Date Type Department Care Team Description 08/22/2003 Emergency Room [facility] Emergency Dept Figueroa Becerra MD OTALGIA NOS [address] [place] [address] [place] [address] [phone] (Wo rk) Social History Tobacco Use Types Packs/Day Years Used Date Smoking Tobacco: Never Assessed Sex Assigned at Date Recorded Not on file documented as of this encounter ED Notes Figueroa Becerra - 08/22/2003 12:00 AM CDT Log Number: [id number] ASSESSMENT: Otalgia, bilateral, right greater than left. PLAN: Discharge to home in stable condition. She is going to take some Sudafed as well as some ibuprofen and follow up with a low-cost clinic from the list as needed. She is deferring to fill out a financial economist form here in the emergency room. CHIEF COMPLAINT: Bilateral ear pain, right greater than left. HISTORY OF PRESENT ILLNESS: This is a well-developed, well-nourished, female who presents with 2 to 3 weeks of this clogged feeling of her ears. She doesn't stay there is pain, per se, but says it's got a fullness in it. She's had this, as noted above, for the last 2 to 3 weeks and rates it up to about a 4/10 to 5/10 currently, but can get a little bit worse with this. She states she is also feeling dizzy with this. By this, she means somewhat disengaged and a little bit intoxicated, but denies any kind of intoxication. She denies vertigo or lightheadedness such as a syncopal or pre-syncopal syndrome. She has a mild headache in the frontal region, but also in the right lateral aspect. She has had occasional tinnitus in her right ear. She has had no cough or congestion. She has not tried any medications for this. She did have an initial sore throat 2 to 3 weeks ago which resolved. She had a little bit of a cough at that time as well. She's otherwise healthy and doing well. She denies any kind of other neurologic symptomatology. PAST MEDICAL HISTORY: None. MEDICATIONS: None. ALLERGIES: NO KNOWN DRUG ALLERGIES. REVIEW OF SYSTEMS/SOCIAL HISTORY/FAMILY HISTORY: Please see doctor danielle. PHYSICAL EXAMINATION: General: This is a well-developed, well-nourished, female who appears in no acute distress. . HEENT: Normocephalic. Conjunctivae pink. Oropharynx clear. Tympanic membranes clear bilaterally. No evidence of fluid behind the ear. No erythema. There is some slight bulging of her right eardrum. The left eardrum otherwise appears normal. I did not find them insufflated or test her TM mobility. No raccoon sign or Zafar's sign. No sign of a fullness in the mastoid region bilaterally. No tenderness of the pinnae. Canals appear otherwise intact. Extraocular motions intact. PERRL. Oropharynx is clear. No evidence of tonsil enlargement. Neck: No lymphadenopathy noted. ASSESSMENT/PLAN: Please see above. tdm Dictated: 08/22/2003 22:35:28 Figueroa Becerra MD Transcribed: 08/25/2003 09:52:44 Doc #: [id number] Page 1 Patient Name: AZUL MCCLELLAN Visit Date: 08/22/2003 EMERGENCY MEDICINE NOTE CONFIDENTIAL MEDICAL RECORD [address] [id number] Page 1 Patient: AZUL MCCLELLAN Location: [facility] HPN: Date of : 1980 Visit Date: 08/22/2003 EMERGENCY MEDICINE NOTE documented in this encounter Plan of Treatment Not on filedocumented as of this encounter Visit Diagnoses Diagnosis Otalgia, unspecified documented in this encounter Care Teams Visiting Housekeeper Relationship Specialty Start Date End Date Judith Almeida MD PCP - General 11/28/01 07/15/04 [address] [place] [address] documented as of this encounter
--- OUTSIDE RECORDS SUMMARY | 2022-01-07 13:11 | XMS_ITS | Encounter Summary ---
:1980 Author Organization [employer] Address [address] [place] [address] Care Team Providers Name Role Phone Zion Sorto MD Primary Care Provider Reason for Visit Reason Comments APPOINTMENT REQUEST Referral for GDM Encounter Details Date Type Department Care Team Description 12/23/2021 Telephone [facility] 3800 Nurse, [id number] End APPOINTMENT REQUEST Endocrinology [address]ie Khan (Referral for GDM) [address] [facility] [place] [address] [phone] Social History Tobacco Use Types Packs/Day Years Used Date Smoking Tobacco: Never Smokeless Tobacco: Never Alcohol Use Standard Drinks/Week Comments No 0 (1 standard drink = 0.6 oz pure alcoho l) Sex Assigned at Date Recorded Not on file documented as of this encounter Nursing Notes Nadya Parker - 12/23/2021 3:09 PM CST Faxed referral rec'd from [facility] Records sent to scan doc IC SERVICES ASSISTANT documented in this encounter Plan of Treatment Not on filedocumented as of this encounter Visit Diagnoses Not on filedocumented in this encounter Care Teams Business Development Recruiter Relationship Specialty Start Date End Date Zion Sorto MD PCP - General 10/15/15 [address] [place] [address] documented as of this encounter
--- OUTSIDE RECORDS SUMMARY | 2022-01-07 13:11 | XMS_ITS | Encounter Summary ---
:1980 Author Organization [facility] Address [address] [place] [address] Care Team Providers Name Role Phone Judith Almeida MD Primary Care Provider Encounter Details Date Type Department Care Team Description 10/05/2002 Orders Only [facility] Destin Lorenzo Laboratory MD [address] [place] [id number] [place] [phone] (Wo rk) Social History Tobacco Use Types Packs/Day Years Used Date Smoking Tobacco: Never Assessed Sex Assigned at Date Recorded Not on file documented as of this encounter Plan of Treatment Not on filedocumented as of this encounter Procedures Procedure Name Priority Date/Time Associated Diagnosis Comme nts RAPID STREP THROAT Waiting 10/05/2002 6:28 PM Res ults for this CDT procedure are i n the results section. documented in this encounter Results RAPID STREP THROAT (10/05/2002 6:28 PM CDT) [facility] Method Time Signature Rapid Strep, Direct test [facility] Throat negative, culture sent Specimen Anatomical Collection Method Collection Time Receive d Time (Source) Location / / Volume Laterality 10/05/2002 6:28 PM 3 6:33 CDT PM CDT Destin Lorenzo Jr., MD LAB_1 Performing Organization Address City/State/ZIP Code Phon e Number [address] [phone] [place], [place] [phone] documented in this encounter Visit Diagnoses Not on filedocumented in this encounter Care Teams Senior Estimator Relationship Specialty Start Date End Date Judith Almeida MD PCP - General 11/28/01 07/15/04 [address] [place] [address] documented as of this encounter
--- OUTSIDE RECORDS SUMMARY | 2022-01-07 13:11 | XMS_ITS | Encounter Summary ---
:1980 Author Organization [employer] Address [address] [place] [address] Care Team Providers Name Role Phone Zion Sorto MD Primary Care Provider Reason for Visit Reason Comments FLOATERS Encounter Details Date Type Department Care Team Description 04/05/2014 Telephone [facility] No Primary/Referring, FLOATERS [address] [place], [place] [address] Social History Tobacco Use Types Packs/Day Years Used Date Smoking Tobacco: Never Smokeless Tobacco: Never Alcohol Use Standard Drinks/Week Comments Not Asked 0 (1 standard drink = 0.6 oz pure alcoho l) Sex Assigned at Date Recorded Not on file documented as of this encounter Nursing Notes Ursula Aguillon - 04/07/2014 9:00 AM CST scheduled CREAM FREEZER ASSISTANT Kristin Diamond - 04/05/2014 11:10 AM CST Patient would like appointment with: Any Provider Patient requesting appointment for: FLOATERS, ROUTINE EYE EXAM Wants/Needs to be seen within: AROUND Monday04/11/2014 Additional Comments: NO Add Is it okay to leave detailed message on your voicemail? YES Kristin Diamond CREAM FREEZER ASSISTANT documented in this encounter Plan of Treatment Not on filedocumented as of this encounter Visit Diagnoses Not on filedocumented in this encounter Care Teams Drug Worker Relationship Specialty Start Date End Date Zion Sorto MD PCP - General 07/16/04 06/04/14 [address] [place] [address] documented as of this encounter
--- OUTSIDE RECORDS SUMMARY | 2022-01-07 13:11 | XMS_ITS | Encounter Summary ---
:1980 Author Organization [employer] Address [address] [place] [address] Care Team Providers Name Role Phone Zion Sorto MD Primary Care Provider Reason for Visit Reason Onset Date Comments FLOATERS 11/29/2016 BE floaters, about 2 months Encounter Details Date Type Department Care Team Description 11/29/2016 Telephone [facility] 3900 Self-Referral, FLOATER S (BE floaters, Ophthalmology Patient, MD about 2 months) [address] [facility] [place] [phone] Social History Tobacco Use Types Packs/Day Years Used Date Smoking Tobacco: Never Smokeless Tobacco: Never Alcohol Use Standard Drinks/Week Comments No 0 (1 standard drink = 0.6 oz pure alcoho l) Sex Assigned at Date Recorded Not on file documented as of this encounter Nursing Notes Tiffanie Morrison - 11/29/2016 12:49 PM CDT Pt concerned with floaters BE's - states can mange through day without being aware of them, but theyare still there. Worsens when coughs. NO Flashes, NO VA Decrease . Pt requests a CE/RX as well. Brief discussion on when floaters could be related to a problem, (flashes or VA decreased/greyed). Attempted to reassure - Pt mistakenly thought Triage was concerned about her causing issue - a few questions pertaining to how Pt was doing, IE: Blood pressure or complications were asked - had to reassure the questions were to determine course of care for appt. And not suggestive of SUPERVISOR COMPONENT ASSEMBLER care - Appt is with ASSA @ [facility] 10:05 11/30/2016 documented in this encounter Plan of Treatment Not on filedocumented as of this encounter Visit Diagnoses Not on filedocumented in this encounter Care Teams School Business Administrator Relationship Specialty Start Date End Date Zion Sorto MD PCP - General 10/15/[address] [place] [address] documented as of this encounter
--- OUTSIDE RECORDS SUMMARY | 2022-01-07 13:11 | XMS_ITS | Encounter Summary ---
:1980 Author Organization [facility] Address [address] [place] [address] Care Team Providers Name Role Phone Zion Sorto MD Primary Care Provider Encounter Details Date Type Department Care Team Description 07/14/2004 Correspondence None Unknown, Physici an [facility] CONSENT/RELEASE [address] [place] [address] (Wo rk) Social History Tobacco Use Types Packs/Day Years Used Date Smoking Tobacco: Never Assessed Sex Assigned at Date Recorded Not on file documented as of this encounter Progress Notes Unknown, Physician - 07/14/2004 12:00 AM CDT documented in this encounter Plan of Treatment Not on filedocumented as of this encounter Visit Diagnoses Not on filedocumented in this encounter Care Teams Guide Cruise Relationship Specialty Start Date End Date Zion Sorto MD PCP - General 07/16/04 06/04/14 [address] [place], [place] [address] documented as of this encounter
--- OUTSIDE RECORDS SUMMARY | 2022-01-07 13:11 | XMS_ITS | Encounter Summary ---
:1980 Author Organization [facility] Address [address] [place] [address] Care Team Providers Name Role Phone Zion Sorto MD Primary Care Provider Encounter Details Date Type Department Care Team Description 07/14/2004 Correspondence Emergency Dept Emergency, [facility] D/C PATIENT [address] [facility] Provider ACKNOWLEDGEMENT [place], [place] [phone] Social History Tobacco Use Types Packs/Day Years Used Date Smoking Tobacco: Never Assessed Sex Assigned at Date Recorded Not on file documented as of this encounter Progress Notes Emergency, Provider - 07/14/2004 12:00 AM CDT documented in this encounter Plan of Treatment Not on filedocumented as of this encounter Visit Diagnoses Not on filedocumented in this encounter Care Teams Veterans Employment Representative Relationship Specialty Start Date End Date Zion Sorto MD PCP - General 07/16/04 06/04/14 [address] [facility] [place] [id number] documented as of this encounter
--- OUTSIDE RECORDS SUMMARY | 2022-01-07 13:11 | XMS_ITS | Encounter Summary ---
:1980 Author Organization [employer] Address [address] [place] [address] Care Team Providers Name Role Phone Zion Sorto MD Primary Care Provider Encounter Details Date Type Department Care Team Description 07/05/2004 Office Visit [facility] Zion Sorto M D ABSENCE OF MENSTRUATION; [facility] [address] [place], [place], [place] [address] (Wo rk) Social History Tobacco Use Types Packs/Day Years Used Date Smoking Tobacco: Never Assessed Sex Assigned at Date Recorded Not on file documented as of this encounter Last Filed Vital Signs Vital Sign Reading Time Taken Comments Blood Pressure 102/62 07/05/2004 1:00 PM CDT Pulse 88 07/05/2004 1:00 PM CDT Temperature 36.9 ??C (98.4 ??F) 07/05/2004 1:00 PM CDT Respiratory Rate 20 07/05/2004 1:00 PM CDT Oxygen Saturation - - Inhaled Oxygen Concentration - - Weight 68 kg (150 lb) 07/05/2004 1:00 PM CDT Height - - Body Mass Index - - documented in this encounter Progress Notes 07/05/2004 1:00 PM CDT Azul Garg is here today for pgt test,per dr sorto. Are you having other pain today, that you want to discuss with the provider? -NO Do you need refills on any of your medications today? -NO Preventive Services up to date? -YES Immunizations up to date? -YES Do you ever feel physically threatened or emotionally afraid? -NO Tobacco Status reviewed? (see History Social-Substance) -NO chair car attendant offered? -NOT APPLICABLE. Aspirin taken daily? -NO BP was taken on the RIGHT arm. BP cuff size used? -Adult Large Health Education given? -NO. Contact phone number [phone] (home) [phone] (work), alternate phone number- Marisol Bowen 07/05/2004 2:36 PM Case discussed with Dr. Sorto. Dx: early . Agree with plan. Martin Luong MD 4:20 PM Zion Sorto - 07/05/2004 12:00 AM CDT SUBJECTIVE: This is a 23-year-old female seen for test. Her last menstrual period was 06/05/2004. She says she's active with 1 partner in the last 9 years. She has morning nausea symptoms without vomiting in the last week. Not on any control pill or other control measure. She had a baby delivered 02/06/1999. 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 She has been trying hard to get another . No vaginal spotting or discharge. OBJECTIVE: Vital signs within normal limits as charted above. No acute distress. Alert and orientedx 3. Lungs: Clear bilaterally. Heart: Regular rate and rhythm. Normal S1, and S2. No murmurs. Abdomen: Soft, nontender, no distended. Extremities: No edema, good pulses bilaterally. ASSESSMENT AND PLAN: test returned with positive result. The patient was told to make first visit with both myself and educator, Lucy Aguilera. vitamins prescribed today. The case has been discussed with Dr. Luong. gavin Dictated: 07/05/2004 18:49:41 Transcribed: 07/07/2004 14:23:59 Doc #: [id number] Page 1 Patient: AZUL MCCLELLAN Confidential Medical Record [facility] [address] [place] [address] Page Patient: AZUL MCCLELLAN Visit Date: 07/05/2004 Zion Sorto MD Date of :1980 Age: 23Y Zion Sorto - 07/05/2004 12:00 AM CDT documented in this encounter Plan of Treatment Not on filedocumented as of this encounter Procedures Procedure Name Priority Date/Time Associated Diagnosis Comme nts TEST Routine 07/05/2004 2:37 PM Results for this (URINE) CDT procedure are i n the results section. documented in this encounter Results TEST (URINE) (07/05/2004 2:37 PM CDT) [facility] gist Method Time Signature HCG, Urine Positive [facility] Positive = >25 mIU/ml Performed at [facility] Specimen Anatomical Collection Method Collection Time Receive d Time (Source) Location / / Volume Laterality 07/05/2004 2:37 PM 5 2:38 CDT PM CDT Zion Sorto MD LAB_1 Performing Organization Address City/State/ZIP Code Phon e Number [address] [id number] [place], [place] [phone] documented in this encounter Visit Diagnoses Diagnosis Absence of menstruation state, incidental documented in this encounter Care Teams Computational Linguist Relationship Specialty Start Date End Date Zion Sorto MD PCP - General 07/16/04 06/04/[address] [place] [address] documented as of this encounter
--- OUTSIDE RECORDS SUMMARY | 2022-01-07 13:11 | XMS_ITS | Encounter Summary ---
:1980 Author Organization [employer] Address [address] [place] [address] Care Team Providers Name Role Phone Non Pn, Clinician MD Primary Care Provider Unavailable Reason for Visit Reason Comments Follow-up Encounter Details Date Type Department Care Team Description 06/06/2014 Office Visit [facility] [address] Jannette Samaniego, Anne Marie blue (Primary Dx); Family Medicine DO Gastroesophageal reflux disease without esophagitis; [address] [place] [address] [address] [facility] [address] [phone] Social History Tobacco Use Types Packs/Day Years [...] Pulse 70 06/06/2014 2:14 PM CDT Temperature - - Respiratory Rate - - Oxygen Saturation - - Inhaled Oxygen Concentration - - Weight 69.6 kg (153 lb 6.4 oz) 06/06/2014 2:14 PM CDT Height 162.6 cm (5' 4) 06/06/2014 2:14 PM CDT Body Mass Index 26.33 06/06/2014 2:14 PM CDT documented in this encounter Patient Instructions Patient InstructionsJannette Samaniego, - 06/06/2014 3:10 PM CDT for the esophagus/reflux: continue zantac start prilosec take both together we can discuss and EGD (endoscopy) if medications don't help symptoms for the anxiety: zoloft daily ativan as needed consider something like propranolol (beta dorene) for the panic attacks documented in this encounter Progress Notes Jannette Samaniego DO - 06/10/2014 8:36 PM CDT see dictation. The patient was discharged ambulatory and in stable condition. Jannette Samaniego DO - 06/10/2014 8:22 PM CDT Progress Notes signed by Jannette Samaniego DO at 06/18/14 1222 Author: Jannette Samaniego DO Service: (none) Author Type: Physician Filed: 06/18/14 1222 Note Time: 06/11/14826 Status: Signed Pipe Fitter Maintenance: Jannette Samaniego DO (Physician) NAME: AZUL MCCLELLAN MR#: [id number] CSN: [id number] AUTHENTICATING CLINICIAN: Jannette Samaniego DO CONFIRM #: [id number] LOC: 402 CLINIC PROGRESS NOTE DATE OF VISIT: 06/06/2014 : 1980 CHIEF COMPLAINT: Followup hospitalization. HISTORY OF PRESENT ILLNESS: Azul is a 33-year-old female who I am meeting for the first time today. She was seen in the emergency room yesterday on the for evaluation of chest discomfort. She describes the episode as being associated with eating, specifically beef tips with gravy and feeling like indigestion. Workup was n egative. EKG was reassuring. Troponins normal. Chest x-ray normal. She was anxious throughout the stay and was very concerned that she may have a life- threatening illness, so she was given lorazepam which did help with her symptoms, and it was recommended she follow up here today to establish care fora new physician. The patient presents today for ongoing complaints. She continues to have reflux like symptoms. She denies weight change, constipation, diarrhea or blood in her stool. She describes thesensation as reflux. She also feels like esophageal type spasm potentially. She was given a prescription for ranitidine which she has been taking and has not noticed if this is significantly helping with her symptoms. She has never had an endoscopy in the past and has been on a proton pump inhibitor in the past that she is aware of. Additionally, she does note a significant amount of anxiety at her baseline. She is concerned about taking antidepressant type medications as she was told by a friend that if you do not have depression and you start these medications that you will end up developing a depression as a result of the use of these medications. She does describe also significant panic attacktype symptoms, so we reviewed several other options that may be helpful to her including beta blockers. Please see assessment and plan for further details. She denies suicidal or homicidal ideations. She does not use any illicit drugs. She does endorse significant anxiety not specifically depression. She says her sleep is generally normal. PAST MEDICAL HISTORY: Reviewed and updated as per [facility]. Please see for details. SOCIAL HISTORY: Reviewed and updated as per [facility]. Please see for details. MEDICATIONS: Reviewed and updated as per [facility]. Please see for details. ALLERGIES: Reviewed and updated as per [facility]. Please see for details. REVIEW OF SYSTEMS: As per [facility]. PHYSICAL EXAM: VITAL SIGNS: As per Epic. GENERAL: She is awake, alert, and oriented in no acute distress. Well hydrated, well nourished, welldeveloped. HEENT: Head is normocephalic, atraumatic. Eyes are nonicteric. Mouth: Moist mucous membranes. NECK: No adenopathy. No thyromegaly. CARDIOVASCULAR: Regular rate. No murmurs. LUNGS: Clear to auscultation bilaterally. No wheezes, rhonchi, or rales. ABDOMEN: Soft, nontender, nondistended. Bowel sounds are present. No rebound, guarding or rigidity. No hepatosplenomegaly. SKIN: Warm, dry, and intact. No evidence of jaundice. NEUROLOGIC: Cranial nerves 2-12 are intact. PSYCH: Flat affect. Denies suicidal or homicidal ideations. Poor insight. ASSESSMENT AND PLAN: Azul is a 33-year-old female who presents today for epigastric chest discomfort as noted above. Shewas seen in the emergency room yesterday with a reassuring work up. She has not found Zantac to be particularly helpful. We discussed continuing this and additionally adding on omeprazole today. Could consider EGD testing if this does not significantly help with symptoms. Did review with patient that EGD is an invasive test that likely if we did find gastritis or esophagitis treatment would be the same. We will see how she does on these medications and see her back in 1 month's time. Discussed otherfollowup that be needed. I think that there is a significant anxiety component to patient's symptoms. Additionally she does endorse what sound like panic attacks. We had a long discussion in the office today in regard to possible medication options. After lengthy discussion, she has decided to try Zoloft which she notes family members have been on in the past and have done well on. I have given her Ativan to use as needed until we get her on other medications to help stabilize her anxiety. We did also review potential use of a beta dorene as that might be better as she does have some concerns about using a SSRI. Did review that Ativan is a controlled substance and potentially addictive. All questions were answered to patient's satisfaction. Medication risks, benefits, side effects, andalternatives were reviewed. Total time spent in office visit was 30 minutes, with greater than 50% spent in direct [id number] counseling, coordination of care. Discussed worsening concerns in depth. Discussed uncertain etiology of symptoms, expected course. All questions answered to patient's satisfaction. Medications and allergy list updated. Side effects ofmedications, risk/benefits and alternatives discussed. Patient understands and agrees with plan as listed above EMK:MEDQ C: CONFIRM #: [id number] documented in this encounter Plan of Treatment Not on filedocumented as of this encounter Visit Diagnoses Diagnosis Anxiety (HRC) - Primary Anxiety state, unspecified Gastroesophageal reflux disease without esophagitis Esophageal reflux Panic attacks (HRC) Panic disorder without agoraphobia documented in this encounter Care Teams Senior Dot Net Developer Relationship Specialty Start Date End Date Non Pn, Clinician, PCP - General 06/05/14 10/14/15 [place] [address] documented as of this encounter
--- OUTSIDE RECORDS SUMMARY | 2022-01-07 13:11 | XMS_ITS | Encounter Summary ---
:1980 Author Organization [facility] Address [address] [place] [address] Care Team Providers Name Role Phone Zion Sorto MD Primary Care Provider Encounter Details Date Type Department Care Team Description 07/19/2004 Office Visit [facility] Unknown, Physician Obstetrics and Gynec ology [address] [place] [phone] (Wo rk) Social History Tobacco Use Types Packs/Day Years Used Date Smoking Tobacco: Never Assessed Sex Assigned at Date Recorded Not on file documented as of this encounter Progress Notes Unknown, Physician - 07/19/2004 12:00 AM CDT documented in this encounter Plan of Treatment Not on filedocumented as of this encounter Visit Diagnoses Not on filedocumented in this encounter Care Teams Warehouse Shift Supervisor Relationship Specialty Start Date End Date Zion Sorto MD PCP - General 07/16/04 06/04/14 [address] [place] [address] documented as of this encounter
--- OUTSIDE RECORDS SUMMARY | 2022-01-07 13:11 | XMS_ITS | Encounter Summary ---
:1980 Author Organization [facility] Address [address] [place] [address] Care Team Providers Name Role Phone Zion Sorto MD Primary Care Provider Encounter Details Date Type Department Care Team Description 04/30/2021 yossi Delgado [phone] Social History Tobacco Use Types Packs/Day Years Used Date Smoking Tobacco: Never Smokeless Tobacco: Never Alcohol Use Standard Drinks/Week Comments No 0 (1 standard drink = 0.6 oz pure alcoho l) Sex Assigned at Date Recorded Not on file documented as of this encounter Progress Notes FAMILY MEDICINEYOSSI PROVIDER - 05/04/2021 3:18 PM CDT yossi Addendum Treatment Plan Diagnosis Urinary Tract Infection Visit Date April 30, 2021 Addendum Date May 04, 2021 Azul SolisChuyBritany Date of : 84 Provider Fiorella Woo, Nurse Practitioner Note From Provider Javi Liang, Thank you for the callback. I have prescribed Macrobid, but it is very important to take Macrobid with a full meal, twice a day. I hope this helps. SANTOSH Barros Treatment Plan Since you have a bacterial infection, let's try an antibiotic. I sent a prescriptionto [facility] . I've also listed a few of the best ways to soothe your discomfortand some additional self-care tips to get you on the road to feeling better.If your symptoms don't improve after 3 days, or if you havequestions, please select Help to Request a Call Back andwe'll talk about your next steps for free. Order(s) cephalexin 500 mg capsule Take 1 capsule oral every twelve hours as directed for 7 days Note: Refills: None Macrobid 100 mg capsule Take 1 capsule oral every twelve hours with meals for 5 days Note: Take on a full stomach. Refills: None Sent To: [facility] [address] [place], [place] [id number] Treatment Plan Self Care Tip Topics Drink Water Avoid Caffeine Warm Packs What to Expect If you follow the recommendations I made on the Treatment tab, your symptomsshould improve in about 3 days. If your symptoms don'timprove after 3 days, or if you have questions, please select Help toRequest a Call Back and we'll helpdetermine your next step for free. What to Watch Out For Give us a call if you experience: ??? High fever ??? Shaking chills ??? Worsening pain with urination ??? Severe pain in your back, abdomen or pelvis My Conditions, Orders, Allergies as of May 04, 2021 Standard condition list None Current orders Macrobid (nitrofurantoin monohyd/m-cryst) cephalexin (cephalexin) minocycline (minocycline) omeprazole (omeprazole) Allergies cephalexin (cephalexin), oral [facility] Information [facility] by [facility] We are an online clinic open 05/09. If you have any questions or comments about this visit, please call or email [email or web address]. FAMILY MEDICINEYOSSI PROVIDER - 04/30/2021 3:29 PM CDT yossi Treatment Plan Diagnosis Urinary Tract Infection Visit Date April 30, 2021 Azul Solis-Britany Date of : 84 Provider Kristina Diaz, Physician Gear Lapper Note From Provider Javi Liang. Thank you for using [facility] today. I?? sorry to hear that you're having symptoms of a bladder infection.'ve sent a prescription for an antibiotic to your pharmacy. Take the medication with a full meal twice a day and remember to drink lots of fluids. We are here for you for any questions or concerns along the way, just Request a Callback. Feel better soon! ALEXANDER Acevedo Treatment Plan Since you have a bacterial infection, let's try an antibiotic. I sent a prescriptionto [facility] . I've also listed a few of the best ways to soothe your discomfortand some additional self-care tips to get you on the road to feeling better.If your symptoms don't improve after 3 days, or if you havequestions, please select Help to Request a Call Back andwe'll talk about your next steps for free. Order(s) cephalexin 500 mg capsule Take 1 capsule oral every twelve hours as directed for 7 days Note: Refills: None Sent To: [facility] [address] [place], [place] [id number] Treatment Plan Self Care Tip Topics Drink Water Avoid Caffeine Warm Packs What to Expect If you follow the recommendations I made on the Treatment tab, your symptomsshould improve in about 3 days. If your symptoms don'timprove after 3 days, or if you have questions, please select Help toRequest a Call Back and we'll helpdetermine your next step for free. What to Watch Out For Give us a call if you experience: ??? High fever ??? Shaking chills ??? Worsening pain with urination ??? Severe pain in your back, abdomen or pelvis My Conditions, Orders, Allergies as of April 30, 2021 Standard condition list None Current orders cephalexin (cephalexin) minocycline (minocycline) omeprazole (omeprazole) Allergies None [facility] Information [facility] We are an online clinic open 05/09. If you have any questions or comments about this visit, please call or email [email or web address]. documented in this encounter Plan of Treatment Not on filedocumented as of this encounter Visit Diagnoses Not on filedocumented in this encounter Care Teams Diesel Bus Mechanic Relationship Specialty Start Date End Date Zion Sorto MD PCP - General 10/15/[address] [place] [id number] documented as of this encounter
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
--- OUTSIDE RECORDS SUMMARY | 2022-01-07 13:11 | XMS_ITS | Encounter Summary ---
:1980 Author Organization [email or web address] Address [address] [place] [address] Care Team Providers Name Role Phone Zion Sorto MD Primary Care Provider Reason for Visit Reason Comments UTI Encounter Details Date Type Department Care Team Description 11/07/2012 Office Visit [facility] Dysuria (Primary Dx) [address] [place] [address] Social History Tobacco Use Types Packs/Day Years Used Date Smoking Tobacco: Never Smokeless Tobacco: Never Alcohol Use Standard Drinks/Week Comments Not Asked 0 (1 standard drink = 0.6 oz pure alcoho l) Sex Assigned at Date Recorded Not on file documented as of this encounter Last Filed Vital Signs Vital Sign Reading Time Taken Comments Blood Pressure 109/77 11/07/2012 6:45 PM CDT Pulse 88 11/07/2012 6:45 PM CDT Temperature 36.4 ??C (97.6 ??F) 11/07/2012 6:45 PM CDT Respiratory Rate 20 11/07/2012 6:45 PM CDT Oxygen Saturation - - Inhaled Oxygen Concentration - - Weight 71.7 kg (158 lb) 11/07/2012 6:45 PM CDT Height 160 cm (5' 3) 11/07/2012 6:45 PM CDT Body Mass Index 27.99 11/07/2012 6:45 PM CDT documented in this encounter Progress Notes Kaylynn Ross RN - 11/08/2012 4:57 PM CDT Quick Note: Results noted Letter sent Kaylynn Barreto RN 11/08/2012, 4:57 PM Robbie Anaya - 11/07/2012 7:40 PM CDT Azul Garg is a 32 yr old female who came to the clinic complaining of urinary frequency, urgency and dysuria which started about 3-4 days ago but became more pronounced in the last 24 hours.The onset was rather abrupt and currently the patient has been urinating small amounts few times an hour. No low back pain or abdominal pain were reported and no hematuria. No fever or chills. Had previous episodes of urinary tract infections. No rashes. No shortness of breath, chest pain or weight loss. Good appetite, no nausea, no diarrhea or constipation. No weakness or numbness. PMHx: Patient Active Problem List Diagnosis ??? , incidental PE BP 109/77 Pulse 88 Temp(Src) 97.6 ??F (36.4 ??C) (Tympanic) Resp 20 Ht 5' 3 (1.6 m) Wt 158 lb (71.668 kg) BMI 28 kg/m2 LMP 10/22/2012 ? Unknown Back: no pain with percussion of CVAs or palpation of the spine Abdomen: soft, BS(+), no pain, no organomegaly Extremities: no edema Neuro: alert, oriented x 3, no gross deficits Skin: no active lesions UA: suggestive of UTI Wet prep: negative ASSESSMENT UTI PLAN Cipro 1 tab bid Await GC results Return to clinic in 7 days if not better, sooner as needed documented in this encounter Nursing Notes 11/07/2012 6:20 PM CDT >> Astrid Kate CMA MonNov 07, 2012 6:45 PM Astrid Kate CMA 11/07/2012, 6:45 PM documented in this encounter Plan of Treatment Not on filedocumented as of this encounter Procedures Procedure Name Priority Date/Time Associated Diagnosis Comme nts CHLAMYDIA & GC (14 Routine 11/07/2012 7:03 PM Dysuria Res ults for this YEARS AND OLDER) CDT procedure a re in the results section. VAGINAL WET PREP Waiting 11/07/2012 7:03 PM Dysuria Resul ts for this CDT procedure are i n the results section. UA MICRO IF Routine 11/07/2012 6:19 PM Dysuria Results f or this CDT procedure are i n the results section. UA MICRO Routine 11/07/2012 6:19 PM Results f or this CDT procedure are i n the results section. documented in this encounter Results CHLAMYDIA & GC (11/07/2012 7:03 PM CDT) P athologist Signature Source Cervix [facility] Chlamydia Negative NEG [facility] Comment: Test Performed by Private Duty Nurse Mediated Amplification GC (N. gonorrhoeae) Negative NEG [facility] Comment: Test Performed by Private Duty Nurse Mediated Amplification Specimen Anatomical Collection Method Collection Time Receive d Time (Source) Location / / Volume Laterality 11/07/2012 7:03 PM 3 7:14 CDT PM CDT Narrative [facility] - 11/08/2012 4:47 PM C DT Performed at [facility], [address] [place] [id number] Robbie Anaya MD LAB_1 Performing Organization Address City/[facility] Phon e Number [facility] [phone] WET PREP, VAGINAL (11/07/2012 7:03 PM CDT) Patholo gist Method Time Signature Clue Cells No Clue Cells NCLUE [facility] Trichomonas No Trichomonas NTRIC [facility] Yeast No Yeast Found YN [facility] pH 4.0 3.5 - 4.5 [facility] Specimen Anatomical Collection Method Collection Time Receive d Time (Source) Location / / Volume Laterality 11/07/2012 7:03 PM 3 7:13 CDT PM CDT Narrative [facility] - 11/07/2012 7:17 PM C DT Performed at [facility], [address] [place] [id number] Robbie Anaya MD LAB_1 Performing Organization Address [facility] Phon e Number [facility] [phone] UA MICRO (11/07/2012 6:19 PM CDT) P athologist Signature RBC'S 0-3 0 - 3 /hpf [facility] WBC'S 3-5 0 - 5 /hpf [facility] Epith, Mod /hpf [facility] Bact Mod [facility] Casts 0 /lpf [facility] Specimen Anatomical Collection Method Collection Time Receive d Time (Source) Location / / Volume Laterality 11/07/2012 6:19 PM 3 6:21 CDT PM CDT Narrative [facility] - 11/07/2012 6:36 PM C DT Performed at [facility], [address] [place] [address] Robbie Anaya MD LAB_1 Performing Organization Address [facility] Phon e Number [facility] [phone] (ABNORMAL) UA MICRO IF (11/07/2012 6:19 PM CDT) Patholo gist Method Time Signature Urine Color Yellow [facility] Urine Clarity Clear [facility] Sp Gr 1.010 1.005 - [facility] Leuk Tr (A) NEG [facility] Nitr Negative NEG [facility] pH 6.5 4.5 - 8.0 [facility] Prot Negative NEG mg/dl [facility] Gluc Negative NEG [facility] Ket Negative NEG [facility] Urob 0.2 0.2 - 1.0 [facility] Bili Negative NEG [facility] Blood Mod (A) NEG [facility] Specimen Anatomical Collection Method Collection Time Receive d Time (Source) Location / / Volume Laterality 11/07/2012 6:19 PM 3 6:21 CDT PM CDT Narrative [facility] - 11/07/2012 6:35 PM C DT Performed at [facility], [place] [address] Robbie Anaya MD LAB_1 Performing Organization Address [facility] Phon e Number [facility] [phone] documented in this encounter Visit Diagnoses Diagnosis Dysuria - Primary documented in this encounter Care Teams Embossing Press Operator Relationship Specialty Start Date End Date Zion Sorto MD PCP - General 07/16/04 06/04/14 [address] [address], [place] [address] documented as of this encounter
--- OUTSIDE RECORDS SUMMARY | 2022-01-07 13:11 | XMS_ITS | Encounter Summary ---
:1980 Author Organization [facility] Address [address] [place] [address] Care Team Providers Name Role Phone Zion Sorto MD Primary Care Provider Encounter Details Date Type Department Care Team Description 05/17/2021 yossi Delgado [phone] Social History Tobacco Use Types Packs/Day Years Used Date Smoking Tobacco: Never Smokeless Tobacco: Never Alcohol Use Standard Drinks/Week Comments No 0 (1 standard drink = 0.6 oz pure alcoho l) Sex Assigned at Date Recorded Not on file documented as of this encounter Progress Notes FAMILY MEDICINEYOSSI PROVIDER - 05/17/2021 12:04 PM CDT yossi Treatment Plan Diagnosis Dermatitis Visit Date May 17, 2021 Azul Dinh Date of : 84 Provider Mohini Ho, Nurse Practitioner Note From Provider Javi Liang,Thanks for using [facility]. See the attached plan. Hope this helps, Natali Treatment Plan Let's try a prescription strength steroid cream for your rash. I sent a prescription to [facility] . I've also listed a few of the best ways to soothe your discomfort and some additional self-care tips to promote healing. If your symptoms don't improve after 4 days, or if you have questions,please use the Request a Call Back button and we'll adjust your treatment for free. Order(s) triamcinolone acetonide 0.1% cream Apply a small amount to affected area twice a day as directed for 14 days Note: Avoid face and genitalia Refills: 1 Sent To: [facility] [address] [place], [place] [id number] Treatment Plan Self Care Tip Topics Cold Packs Reduce Showers and Baths What to Expect If you follow the recommendations I made on the Treatment tab, your symptoms should improve in about4 days. If your symptoms don't improve after 4 days, or if you have questions, please use the Request a Call Back button and we'll adjust your treatment for free. What to Watch Out For Give us a call immediately if you experience: ??? Spreading to your face ??? Drainage of thick white, yellow or foul smelling fluids ??? Developing a high fever ??? Worsening rash My Conditions, Orders, Allergies as of May 17, 2021 Standard condition list None Current orders triamcinolone acetonide (triamcinolone acetonide) minocycline (minocycline) omeprazole (omeprazole) Allergies cephalexin (cephalexin), oral [employer] Information [employer] [facility] We are an online clinic open 05/09. If you have any questions or comments about this visit, please call or email [email or web address] documented in this encounter Plan of Treatment Not on filedocumented as of this encounter Visit Diagnoses Not on filedocumented in this encounter Care Teams Air Brush Artist Relationship Specialty Start Date End Date Zion Sorto MD PCP - General 10/15/[address] [place] [address] documented as of this encounter
--- OUTSIDE RECORDS SUMMARY | 2022-01-07 13:11 | XMS_ITS | Encounter Summary ---
:1980 Author Organization [employer] Address [address] [place] [address] Care Team Providers Name Role Phone Zion Sorto MD Primary Care Provider Reason for Visit Reason Comments Vaginal Discharge Whit colred discharge; OTC y east infect med did not help. Also itching, notes some bumps. Encounter Details Date Type Department Care Team Description 03/05/2011 Office Visit [facility] [place] (bacterial vaginosis) (Pr imary Dx); [address] [facility] Vaginitis; [place] [address] state, incidental; [phone] Dermatitis Social History Tobacco Use Types Packs/Day Years Used Date Smoking Tobacco: Never Smokeless Tobacco: Never Alcohol Use Standard Drinks/Week Comments Not Asked 0 (1 standard drink = 0.6 oz pure alcoho l) Sex Assigned at Date Recorded Not on file documented as of this encounter Last Filed Vital Signs Vital Sign Reading Time Taken Comments Blood Pressure 126/82 03/05/2011 4:30 PM CLIENT ENGAGEMENT SPECIALIST Pulse 96 03/05/2011 4:30 PM CLIENT ENGAGEMENT SPECIALIST Temperature 36.8 ??C (98.2 ??F) 03/05/2011 4:30 PM CLIENT ENGAGEMENT SPECIALIST Respiratory Rate 20 03/05/2011 4:30 PM CLIENT ENGAGEMENT SPECIALIST Oxygen Saturation - - Inhaled Oxygen Concentration - - Weight 70.5 kg (155 lb 6.4 oz) 03/05/2011 4:30 PM CLIENT ENGAGEMENT SPECIALIST Height 160 cm (5' 3) 03/05/2011 4:30 PM CLIENT ENGAGEMENT SPECIALIST Body Mass Index 27.53 03/05/2011 4:30 PM CLIENT ENGAGEMENT SPECIALIST documented in this encounter Patient Instructions Patient InstructionsBraShirin christopher, FABRIC STRETCHER, COPPER ETCHER - 03/05/2011 5:00 PM CLIENT ENGAGEMENT SPECIALIST Return if symptoms worsen, no improvement in 1 week or not completely resolved in 2 weeks. NT ENGAGEMENT SPECIALIST documented in this encounter Progress Notes Shirin Nascimento APRN, CNP - 03/05/2011 4:54 PM CST SUBJECTIVE: 30-year-old female,, with increased vaginal discharge for the past two days. Also is concerned because she has an area that it is very itchy and swollen on the side of her vaginal area. This before. Denies any new soaps lotions detergents etc. Has no ST concerns. Zofran and vitamins. Has had b acterial vaginosis in the past. Does not smoke. No medication allergies. OBJECTIVE: BP 126/82 Pulse 96 Temp(Src) 98.2 ??F (36.8 ??C) (Tympanic) Resp 20 Ht 5' 3 (1.6 m) Wt 155 lb 6.4 oz (70.489 kg) BMI 27.53 kg/m2 Vital signs are normal. Pleasant female in no acute distress. Area of the introitus is quite erythematous with white watery discharge. White watery discharge in the vaginal vault. On the patient's leftside to the left and below the introital area there is a raised confluent erythematous lesion approximately 1.5 cm in diameter. It is evident that the patient has been scratching. There are no vesiclesor ulcerations noted. Wet prep shows many clue cells and a pH of five. Discussed with the patient possibility of a spider bite, she has been scratching it so I cannot appreciate a pinpoint opening. ASSESSMENT: Dermatitis, possible spider bite. state, incidental. Bacterial vaginosis. PLAN: MetroGel, one applicator into the vagina twice a day for five days. 2.5 percent hydrocortisone cream, apply to the itchy red swollen area up to four times a day for a week, #15 g with no refills. Return if symptoms worsen, no improvement in a week, or not completely resolved in two weeks. All of this is discussed with the patient and the patient acknowledges understanding. Shirin Hernandez NP NT ENGAGEMENT SPECIALIST documented in this encounter Nursing Notes 03/05/2011 4:20 PM CST >> Faizan Clark LPN Sat Mar 05, 2011 4:35 PM Faizan Clark LPN documented in this encounter Plan of Treatment Not on filedocumented as of this encounter Procedures Procedure Name Priority Date/Time Associated Diagnosis Comme nts VAGINAL WET PREP Waiting 03/05/2011 4:48 PM Vaginitis Resul ts for this CLIENT ENGAGEMENT SPECIALIST procedure are i n the results section. documented in this encounter Results (ABNORMAL) WET PREP, VAGINAL (03/05/2011 4:48 PM CLIENT ENGAGEMENT SPECIALIST) [facility] Method Time Signature Epithelials Moderate [facility] % Atrophic 0 [facility] Epith WBC'S Few [facility] Bacteria Moderate [facility] Clue Cells Moderate [facility] Trichomonas 0 [facility] Yeast 0 [facility] pH 5.0 (H) 3.5 - 4.5 [facility] Specimen Anatomical Collection Method Collection Time Receive d Time (Source) Location / / Volume Laterality 03/05/2011 4:48 PM 2 4:56 CLIENT ENGAGEMENT SPECIALIST PM CLIENT ENGAGEMENT SPECIALIST Shirin Nascimento APRN, CNP LAB_1 Performing Organization Address City/State/ZIP Code Phon e Number [facility] [phone] [facility] [address] [address] documented in this encounter Visit Diagnoses Diagnosis BV (bacterial vaginosis) - Primary Vaginitis and vulvovaginitis, unspecifie d Vaginitis Vaginitis and vulvovaginitis, unspecifie d state, incidental Dermatitis Contact dermatitis and other eczema, due to unspecified cause documented in this encounter Care Teams Administrative Fellow Relationship Specialty Start Date End Date Zion Sorto MD PCP - General 07/16/04 06/04/14 [id number] [place] [id number] documented as of this encounter
--- OUTSIDE RECORDS SUMMARY | 2022-01-07 13:11 | XMS_ITS | Encounter Summary ---
:1980 Author Organization [employer] [facility] Address [address] [place] [address] Care Team Providers Name Role Phone Judith Almeida MD Primary Care Provider Reason for Visit Reason Comments URINARY FREQUENCY--ED VOMITING--ED + test Encounter Details Date Type Department Care Team Description 07/14/2004 - Emergency [facility] Nafisa Murray NAUSEA ALONE; 07/15/2004 [place] [address] [phone] [place] [address] Social History Tobacco Use Types Packs/Day Years Used Date Smoking Tobacco: Never Assessed Sex Assigned at Date Recorded Not on file documented as of this encounter Last Filed Vital Signs Vital Sign Reading Time Taken Comments Blood Pressure 115/60 07/14/2004 9:36 PM CDT Pulse 99 07/14/2004 9:36 PM CDT Temperature 36.8 ??C (98.3 ??F) 07/14/2004 9:36 PM CDT Respiratory Rate 18 07/14/2004 9:36 PM CDT Oxygen Saturation 100% 07/14/2004 9:36 PM CDT Inhaled Oxygen Concentration - - Weight - - Height - - Body Mass Index - - documented in this encounter Discharge Instructions Discharge Fannie Bowen - 07/14/2004 11:56 PM CDT Dear Ms. Irma Garg, Thank you for choosing [facility] for your emergency medical needs. You have received emergency care only and your condition may change. Therefore, we highly recommend you follow-up with your physician as directed. For follow-up care contact: Further workup and treatment may be needed if symptoms persist, worsen or new related symptoms occur. [facility] [phone] For follow-up care, you should be seen within 7-14 days. When you see your doctor, bring your medications and instructions to the office. If you had x-rays,an EKG, or lab tests today, they have been reviewed by your emergency department doctor. We will contact you at once if other important findings are notified after further review of our staff. If you do not continue to improve or if your condition worsens, please call your doctor or the emergency roomright away. I understand that my condition may require more care and will arrange for further treatment as recommended. If you would like to be seen in a Count includes the [facility] clinic, please call the [facility] Appointment Desk at [phone] anytime between 7:00 AM and 9:00 PM, 7 days a week, 365 days a year (Hearing Impaired: [phone]). Please bring these instructions with you when you are seen in your follow-up appointment. Co-pays for this visit may be paid for at the discharge desk. Now that you are , you will want to do everything you can to have a healthy baby. Two of themost important things are to get good care and follow your care takers instructions. care includes all the medical care you receive prior to the baby???s and is given to preventproblems during the and childbirth. HOME CARE INSTRUCTIONS ?? You should start your visits by the 12th week of . They usually scheduled monthly at first, then more often in the last 2 months before delivery. It is important that you keep yourcaregiver???s appointments and follow your caregiver???s instructions regarding medication use, exercise, and diet. ?? During , you are providing food for you and your baby. Eat regular, well-balanced meals.Choose foods such as meat, fish, milk and other dairy products, vegetables, fruits, and whole-grain breads and cereals. Your caregiver will inform you of the ideal weight gain. ?? Avoid use of all medications (including over the counter medications) not prescribed. Other medications can cause genetic and physical problems in the baby. .Alcohol is associated with a number of defects ( alcohol syndrome) and is best avoided completely. Smoking will cause low rate babies and prematurity. ?? Morning sickness can often be helped by keeping soda crackers at the bedside and eating a couple before arising in the morning. ?? A physical sexual relationship may be continued up until near the end of if there are no other problems such as premature (early) leaking (of amniotic fluid) from the membranes, vaginal bleeding, or abdominal (belly) pain. ?? Exercise regularly and check with your caregiver if you are unsure of the safety of some of your exercises. ?? Do not use hot tubs, steam rooms and saunas. IMMEDIATELY CALL OR SEE YOUR CAREGIVER IF ANY OF THE FOLLOWING OCCUR: ? An unexplained oral temperature above 101&deg; F (38.3&deg; C) develops, or as your caregiver suggests. ?? You have leaking of fluid from the vagina ( canal). (If leaking membranes are suspected, take your temperature and inform your care provider of this when you call). ?? There is vaginal spotting or bleeding (notify your caregiver of the amount and how many pads are used). ?? You continue to be nauseated and have no relief from remedies suggested or should vomit blood or coffee ground like materials. ?? You develop abdominal pain. (Round ligament discomfort is a common benign cause of abdominal painin but this still must be evaluated by your caregiver). ExitCare(R) Patient Information (C)2004 [employer]. \\[email or web address]\epic\ExitcareNonfieldFull\NonFields\di\[employer]risian - No Bhandari\[email or web address] documented in this encounter Medications at Time of Discharge Medication Sig Dispensed Refills Start Date End Date FORMULA/FOLIC ACID one tab po daily 90 3 08/13/2005 OR TABS documented as of this encounter ED Notes Fannie García - 07/15/2004 7:45 AM CDT [facility] Emergency Department Visit Note Patient Name: Azul Solis [facility] Date of : 1980 Chief Complaint: Patient presents with: URINARY FREQUENCY--ED VOMITING--ED - + test HPI: This is a 23 yo female LMP 'last week of May' who presents with morning sickness and urinary symptoms. Pt feels that she has to urinate often (frequency) - 'but nothing comes out'. No burning/pain, no abd pain, vaginal discharge or bleeding. No vomiting, but decreased PO. Pt had difficulty w/h yperemesis during last . Has not seen MD for this yet. PMH: o/w healthy h/o hyperemesis of necessitating IVF in past Meds: Active Medications as of 07/14/2004: FORMULA/FOLIC ACID OR TABS, one tab po daily, Disp: 90, Rfl: 3 Allergies: Review of patient's allergies indicates no known allergies. Social and Family History: Tobacco Use: None Alcohol Use: None Patient's Family History n/c Review of Systems: Please see People and Pages flowsheet for review of systems. Physical Exam: BP 115/60 Pulse 99 Temp (Src) 98.3 (Oral) Resp 18 SaO2 100% General: Young female lying in bed. NAD Head: NCAT Eye: PERRL, EOMI, no scleral icterus, no conjunctival injection Nose: patent nares bilat Mouth: no intraoral lesions, OP clr, MMM Neck: supple, no LAD, no cervical tenderness Pulm: lungs CTA bilat CV: RRR, no murmurs/rubs/gallops appreciated, radial pulses strong & = bilat Back: no midline tenderness, no CVA tenderness Abdomen: (+) BS, soft, NT/ND, no organomegaly or masses. Slt nausea w/palpation. Extremities: MARTIN w/full ROM and no tenderness at major joints Skin: warm/dry, no rashes or bruising noted Medical Decision Making: Pt seen and examined by myself and Dr. Murray. UA sent for possible UTI and was WNL w/some ketones. Pt requesting nausea medications. Relieved re: no UTI. Assessment: induce nausea and urinary frequency. Plan: 1. d/c home 2. Reglan prn nausea 3. f/u Dean Of Faculty 1-2 weeks 4. return to ED for any concerns - fevers, chills, vaginal discharge, inability to take PO, other concerns. Condition on disposition: Stable This electronic signature covers the nursing and ancillary testing orders for this visit. Author: Fannie García - 07/14/2004 11:05 PM Nafisa Murray - 07/15/2004 2:19 AM CDT [facility] Emergency Department Attending Supervision Note Patient Name: Azul Garg Date of : 1980 I certify that I obtained a history, examined the patient, and agree with resident's findings as documented the corresponding visit note by Dr. Fannie García. PMH, FH, SOC, ROS reviewed Please see today's note by resident physician. Assessment: Urinary frequency in pt with early . No abdominal or pelvic pain and no vaginal discharge or bleeding. Benign exam Plan: Laboratory: UA - negative Planned Disposition: home - f/u ob prn This electronic signature covers the nursing and ancillary testing orders for this visit. Author: Nafisa Murray MD - 07/14/2004 11:04 PM Camilla Patiño - 07/14/2004 11:26 PM CDT urine sample to lab. awaiting results. Camilla Patiño - 07/14/2004 10:57 PM CDT PATIENT STATES SHE IS HAVING MORNING SICKNESS. aLSO THINKS SHE MIGHT HAVE A URINARY TRACT INFECTIONAS SHE HAS URGE TO URINATE FREQUENTLY AND THEN CAN'T VOID. wHEN SHE DOES VOID, DENIES DYSURIA. DENIES VAG DRAINAGE OR BLEEDING. VSS Srinivasan Cortes - 07/14/2004 9:39 PM CDT Frequent urination pain only when goes to bathroom. documented in this encounter Plan of Treatment Not on filedocumented as of this encounter Procedures Procedure Name Priority Date/Time Associated Comments Diagnosis UA, MICROSCOPIC IF Waiting 07/14/2004 11:22 Resul ts for this MEETS CRITERIA PM CDT procedure are in the results section. documented in this encounter Results (ABNORMAL) UA MICROSCOPIC IF (07/14/2004 11:22 PM CDT) [facility] gist Method Time Signature Urine Microscopic REGIONS Comments exam not indicated Urine Color Yellow [facility]IONS Urine Clarity Clear [facility] Specific 1.036 (H) 1.005 - REGIONS [place] 1.030 Comment: Possible Interfering Substances pH, Urine 5.5 4.5 - 8.0 [facility] Protein, Urine Qual Neg [place] mg/dl [facility] Glucose, Urine Qual Neg [place] mg/dl [facility] Ketones, Urine 15 (A) [place]ISON mg/dl [facility] Urobil, Urine Qual 0.2 0.2 - 1.0 EU/dl REGIO NS Bilirubin, Urine Neg [place] [facility] Blood, Urine Neg [place] [facility] Nitrite, Urine Neg [place] [facility] Leukocyte Est., Ur Neg [facility] Specimen Anatomical Collection Method Collection Time Receive d Time (Source) Location / / Volume Laterality 07/14/2004 11:22 07/14/2004 PM CDT 11:24 PM CDT Nafisa Murray MD LAB_1 Performing Organization Address City/State/ZIP Code Phon e Number [address] [address] [place], [place] [phone] documented in this encounter Visit Diagnoses Diagnosis Nausea alone state, incidental documented in this encounter Care Teams Inserter Relationship Specialty Start Date End Date Judith Almeida MD PCP - General 11/28/01 07/15/04 [address] [place] [address] documented as of this encounter
--- OUTSIDE RECORDS SUMMARY | 2022-01-07 13:11 | XMS_ITS | Encounter Summary ---
:1980 Author Organization [employer] Address [address] [place] [address] Care Team Providers Name Role Phone Zion Sorto MD Primary Care Provider Reason for Visit Reason Comments BLADDER INFECTION urgency but then there is no t urine when she goes, sx sx yesterday. INFECTION, VAGINAL odor and discharge. Encounter Details Date Type Department Care Team Description 08/10/2011 Office Visit Urgent Care [facility] [place] UTI (urinary tract infection ) (Primary Dx); [address] [facility] Dysuria; [place] [address] Vaginitis; [phone] BV (bacterial v aginosis); state, incidental Social History Tobacco Use Types Packs/Day Years Used Date Smoking Tobacco: Never Smokeless Tobacco: Never Alcohol Use Standard Drinks/Week Comments Not Asked 0 (1 standard drink = 0.6 oz pure alcoho l) Sex Assigned at Date Recorded Not on file documented as of this encounter Last Filed Vital Signs Vital Sign Reading Time Taken Comments Blood Pressure 110/73 08/10/2011 5:34 PM CDT Pulse 104 08/10/2011 5:34 PM CDT Temperature 36.6 ??C (97.9 ??F) 08/10/2011 5:34 PM CDT Respiratory Rate 24 08/10/2011 5:34 PM CDT Oxygen Saturation - - Inhaled Oxygen Concentration - - Weight 75 kg (165 lb 6 oz) 08/10/2011 5:34 PM CDT Height 161.3 cm (5' 3.5) 08/10/2011 5:34 PM CDT Body Mass Index 28.84 08/10/2011 5:34 PM CDT documented in this encounter Progress Notes Kaylynn Ross RN - 08/12/2011 5:37 PM CDT Quick Note: Results noted Treated during OV with cephalexin Kaylynn Barreto RN 08/12/2011, 5:37 PM Fauzia Riley RN - 08/11/2011 6:12 PM CDT Quick Note: Results noted. Started on Cep[halexin .Fauzia Riley RN 08/11/2011, 6:12 PM Shirin Nascimento APRN, LADI - 08/10/2011 8:11 PM CDT SUBJECTIVE: Is determined on 30-year-old female who is 33 weeks presents with dysuria frequency and urgency since yesterday and increased vaginal discharge and odor to her discharge for the last several days. No concerns regarding sexually transmitted infections. Denies any dyspareunia. Has no fever. Has had urinary tract infections in the past but none with this . On Zofran and vitamins. Does not smoke. No medication allergies. She is getting her OB care at [facility]. OBJECTIVE: BP 110/73 Pulse 104 Temp(Src) 97.9 ??F (36.6 ??C) (Tympanic) Resp 24 Ht 5' 3.5 (1.613 m) Wt 165 lb 6 oz (75.014 kg) BMI 28.84 kg/m2 Vital signs are normal. Pleasant female in no acute distress. There is no costovertebral angle tenderness. Outer genitalia are erythematous and there is a large amount of yellowish white bubbly discharge in the vaginal vault. Wet prep is positive for clue cells and a pH of 5.0. Urinalysis shows a specific gravity 1.030, small leukocytes, positive nitrates, 100 protein, small blood, 10-20 RBCs and 20-50 WBCs per high-power field with occasional squamous epithelials and many bacteria. Urine culture and sensitivities obtained. ASSESSMENT: Urinary tract infection. Bacterial vaginosis. 33 weeks . PLAN: Keflex 500 mg by mouth 4 times a day x1 week. Metronidazole 500 mg by mouth twice a day x1 week. Pyridium 200 mg by mouth 3 times a day when necessary #6 with no refills. Further recommendations dependent on urine culture and sensitivity results. Return if symptoms worsen, no improvement in 48 hours, are not completely resolved in 7-10 days. All of this is discussed with the patient and the patient acknowledges understanding. Shirin Hernandez NP documented in this encounter Nursing Notes 08/10/2011 5:20 PM CDT >> Amelia Sanon CMA MonAug 10, 2011 5:36 PM Amelia Sanon CMA documented in this encounter Plan of Treatment Not on filedocumented as of this encounter Procedures Procedure Name Priority Date/Time Associated Diagnosis Comme nts URINE CULTURE Routine 08/10/2011 6:25 PM Dysuria Results for this CDT UTI (urinary tract procedure are in infection) the results section. VAGINAL WET PREP Waiting 08/10/2011 5:56 PM Vaginitis Resul ts for this CDT procedure are i n the results section. UA MICRO IF Routine 08/10/2011 5:09 PM Dysuria Results f or this CDT procedure are i n the results section. UA MICRO Routine 08/10/2011 5:09 PM Results f or this CDT procedure are i n the results section. documented in this encounter Results URINE CULTURE (08/10/2011 6:25 PM CDT) Component Value Ref Test Analysis Performed At [facility] Range Method Time Signature Specimen Urine [facility] Description Midstream Special Sensitivity [facility] Requests Ordered Culture > 100,000 [facility] col/ml Klebsiella pneumoniae Report Status Final [facility] 08/12/2011 Organism > 100,000 [facility] col/ml Klebsiella pneumoniae Specimen Anatomical Collection Method Collection Time Receive d Time (Source) Location / / Volume Laterality 08/10/2011 6:25 PM 2 9:20 CDT PM CDT Organism Antibiotic Method Susceptibility > 100,000 col/ml klebsiella Amox/K Clavulanate KRISTIAN < =8/4 pneumoniae Susceptible SUSCEPTIBLE > 100,000 col/ml klebsiella Ampicillin KRISTIAN >16 pneumoniae Resistant Resistant > 100,000 col/ml klebsiella Ampicillin/Sulbactam KRISTIAN <=8/4 pneumoniae Susceptible SUSCEPTIBLE > 100,000 col/ml klebsiella Cefazolin KRISTIAN <=8 pneumoniae Susceptible SUSCEPTIBLE > 100,000 col/ml klebsiella Cephalexin KRISTIAN <=8 pneumoniae Susceptible SUSCEPTIBLE > 100,000 col/ml klebsiella Ciprofloxacin KRISTIAN <=1 pneumoniae Susceptible SUSCEPTIBLE > 100,000 col/ml klebsiella Gentamicin KRISTIAN <=1 pneumoniae Susceptible SUSCEPTIBLE > 100,000 col/ml klebsiella Nitrofurantoin KRISTIAN <=32 pneumoniae Susceptible SUSCEPTIBLE > 100,000 col/ml klebsiella Piper/tazobactam KRISTIAN <=1 6 pneumoniae Susceptible SUSCEPTIBLE > 100,000 col/ml klebsiella Tetracycline KRISTIAN <=4 pneumoniae Susceptible SUSCEPTIBLE > 100,000 col/ml klebsiella Trimethoprim KRISTIAN <=8 pneumoniae Susceptible SUSCEPTIBLE > 100,000 col/ml klebsiella Trimeth/Sulfa KRISTIAN <=2/ 38 pneumoniae Susceptible SUSCEPTIBLE Shirin Nascimento APRN, CNP LAB_1 Performing Organization Address [facility] Phon e Number [facility] [facility] [phone] [address] (ABNORMAL) WET PREP, VAGINAL (08/10/2011 5:56 PM CDT) Component Value Ref Test Analysis Performed At [employer] [facility] Method Time Signature Clue Cells Clue Cells NCLUE [facility] Present (A) Trichomonas No Trichomonas [facility] Seen Yeast No Yeast Found YN [facility] pH 5.0 (H) 3.5 - [facility] 4.5 Specimen Anatomical Collection Method Collection Time Receive d Time (Source) Location / / Volume Laterality 08/10/2011 5:56 PM 2 6:00 CDT PM CDT Shirin Nascimento APRN, LADI LAB_1 Performing Organization Address [facility] Phon e Number [employer] [phone] [address] UA MICRO (08/10/2011 5:09 PM CDT) Geo[employer] Method Time Signature RBC'S 10-20 0 - 3 [facility] /hpf WBC'S 20-50 0 - 5 [facility] /hpf Epith, Occ /hpf [facility] Squamous Bact Many [facility] Casts 0 /lpf [facility] Other Many [facility] Mucous Specimen Anatomical Collection Method Collection Time Receive d Time (Source) Location / / Volume Laterality 08/10/2011 5:09 PM 2 5:14 CDT PM CDT Shirin Nascimento APRN, CNP LAB_1 Performing Organization Address [facility] Phon e Number [facility] [employer] [phone] [facility] [address] [place] [address] (ABNORMAL) UA MICRO IF (08/10/2011 5:09 PM CDT) [facility] Method Time Signature Urine Color Yellow [facility] Urine Clarity Cloudy [facility] Sp Gr 1.030 1.005 - [facility] 1.03 Leuk Sml (A) NEG [facility] Nitr Pos (A) NEG [facility] pH 5.5 4.5 - 8.0 [facility] Prot 100 (A) NEG mg/dl [facility] Gluc Negative NEG [facility] Ket Negative NEG [facility] Urob 0.2 0.2 - 1.0 [facility] EU/dl Bili Negative NEG [facility] Blood Sml (A) NEG [facility] Specimen Anatomical Collection Method Collection Time Receive d Time (Source) Location / / Volume Laterality 08/10/2011 5:09 PM 2 5:14 CDT PM CDT Shirin Nascimento APRN, CNP LAB_1 Performing Organization Address [facility] Phon e Number [facility] [employer] [phone] [address] documented in this encounter Visit Diagnoses Diagnosis UTI (urinary tract infection) - Primary Urinary tract infection, site not specif ied Dysuria Vaginitis Vaginitis and vulvovaginitis, unspecifie d BV (bacterial vaginosis) Vaginitis and vulvovaginitis, unspecifie d state, incidental documented in this encounter Care Teams Applications Support Lead Relationship Specialty Start Date End Date Zion Sorto MD PCP - General 07/16/04 06/04/14 [id number] [facility] [place] [id number] documented as of this encounter
--- OUTSIDE RECORDS SUMMARY | 2022-01-07 13:11 | XMS_ITS | Encounter Summary ---
:1980 Author Organization [employer] Address [address] [place] [address] Care Team Providers Name Role Phone Zion Sorto MD Primary Care Provider Reason for Visit Reason Comments MEDICATION, NOS pt needed to get Zofran b/c she is 7 weeks and has morning sickings Encounter Details Date Type Department Care Team Description 02/15/2011 Office Visit Urgent Care [facility] [place] Hyperemesis gravidarum [address] [facility] (Primary Dx) [place] [address] Social History Tobacco Use Types Packs/Day Years Used Date Smoking Tobacco: Never Assessed Sex Assigned at Date Recorded Not on file documented as of this encounter Last Filed Vital Signs Vital Sign Reading Time Taken Comments Blood Pressure 115/83 02/15/2011 7:47 PM WELLNESS NURSE Pulse 103 02/15/2011 7:47 PM WELLNESS NURSE Temperature 36.1 ??C (96.9 ??F) 02/15/2011 7:47 PM WELLNESS NURSE Respiratory Rate 18 02/15/2011 7:47 PM WELLNESS NURSE Oxygen Saturation - - Inhaled Oxygen Concentration - - Weight 72.6 kg (160 lb) 02/15/2011 7:47 PM WELLNESS NURSE Height 160 cm (5' 3) 02/15/2011 7:47 PM WELLNESS NURSE Body Mass Index 28.34 02/15/2011 7:47 PM WELLNESS NURSE documented in this encounter Progress Notes Martin Rosas MD - 02/16/2011 2:56 PM CST S: 30 year old whose primary care is elsewhere requests a prescription for oral Zofran because of nausea and vomiting which she attributes to . She had a positive home test and estimates gestation at 7 weeks. She has not yet had a first OB visit but has an appointment in about a week and a half. States that she had prolonged and severe nausea and vomiting with her two previous pregnancies and required IV fluids at home at one point. She is not yet taking vitamins and I advised starting them now rather than waiting for her upcoming appointment and mentioned reduction of neural tube defects risk. She had some relief with some oral Zofran left over from a surgical procedure. O: Deferred apart from noting that tongue appeared moist and unremarkable vital signs. A: Nausea and vomiting of . P: Zofran prescribed. Told patient I did not know if her insurance would limit amount covered and gave her prescriptions for both standard and disintegrating tablets. Patient confirms that she was given information regarding non- pharmacologic treatment in the past. Advised starting vitamins whether prescription or non-prescription now. NESS NURSE documented in this encounter Nursing Notes 02/15/2011 7:00 PM CST >> Lam Lozano, STEFANIE dagoberto Feb 15, 2011 7:49 PM . documented in this encounter Plan of Treatment Not on filedocumented as of this encounter Visit Diagnoses Diagnosis Hyperemesis gravidarum - Primary Mild hyperemesis gravidarum, unspecified as to episode of care documented in this encounter Care Teams Blueprint Clerk Relationship Specialty Start Date End Date Zion Sorto MD PCP - General 07/16/04 06/04/14 [id number] [place] [address] documented as of this encounter
--- OUTSIDE RECORDS SUMMARY | 2022-01-07 13:11 | XMS_ITS | Encounter Summary ---
:1980 Author [facility] Address [address] [place] [address] Care Team Providers Name Role Phone Zion Sorto MD Primary Care Provider Reason for Visit Reason Comments Dental Conversion [facility] to [place] convers ion Encounter Details Date Type Department Care Team Description 07/21/2016 Dental Conversion [place] [facility] DDS [address] [facility], [address] [place] [id number] Social History Tobacco Use Types Packs/Day Years Used Date Smoking Tobacco: Never Smokeless Tobacco: Never Alcohol Use Standard Drinks/Week Comments No 0 (1 standard drink = 0.6 oz pure alcoho l) Sex Assigned at Date Recorded Not on file documented as of this encounter Discharge Summaries Interface, In [facility]r Dental Conversion - 09/03/2016 12:00 AM CDT EDR Pt Notes: 08/31/07 -- Fail; See contacts. LJL; FLOW NURSE documented in this encounter Miscellaneous Notes Miscellaneous - Interface, In Edr Dental Conversion - 05/17/2013 12:00 AM CDT 05/17/2013: Email To OS: Azul MCCORMICK 1980 scheduled on 05/23/13 [place] dated 05/16/13 Thank you, [facility] [phone] Miscellaneous - Interface, In Edr Dental Conversion - 05/17/2013 12:00 AM CDT 05/17/2013: Fax Sent: referral to [facility] appt on 05/23/13 Miscellaneous - Interface, In Edr Dental Conversion - 08/31/2007 12:00 AM CDT 08/31/2007: No Show Call: Pt. states she's stuck in traffic and her insuranse has been changed and will not be valid until September. She will call back to reschedule. MARIUM; FELECIA documented in this encounter Plan of Treatment Not on filedocumented as of this encounter Visit Diagnoses Not on filedocumented in this encounter Care Teams Telehealth Director Relationship Specialty Start Date End Date Zion Sorto MD PCP - General 10/15/[id number] [place] [id number] documented as of this encounter
--- OUTSIDE RECORDS SUMMARY | 2022-01-07 13:11 | XMS_ITS | Encounter Summary ---
:1980 Author Organization [employer] Address [address] [place] [address] Care Team Providers Name Role Phone Non Pn, Clinician MD Primary Care Provider Unavailable Reason for Visit Reason Comments Chest Pain Encounter Details Date Type Department Care Team Description 06/05/2014 [facility] Delfin Lynch MD Atypical chest pain; [facility] [address] Gastroesophageal reflux dise ase with esophagitis [address] [place] [address] [facility] [phone] ( Work) [place] [address] [phone] Social History Tobacco Use Types Packs/Day Years Used Date Smoking Tobacco: Never Smokeless Tobacco: Never Alcohol Use Standard Drinks/Week Comments Not Asked 0 (1 standard drink = 0.6 oz pure alcoho l) Sex Assigned at Date Recorded Not on file documented as of this encounter Last Filed Vital Signs Vital Sign Reading Time Taken Comments Blood Pressure 114/72 06/05/2014 6:08 PM CDT Pulse 98 06/05/2014 6:08 PM CDT Temperature 36.9 ??C (98.4 ??F) 06/05/2014 2:01 PM CDT Respiratory Rate 18 06/05/2014 6:08 PM CDT Oxygen Saturation 100% 06/05/2014 6:08 PM CDT Inhaled Oxygen Concentration - - Weight 70.3 kg (155 lb) 06/05/2014 2:01 PM CDT Height - - Body Mass Index 27.46 08/27/2013 7:41 PM CDT documented in this encounter Medications at Time of Discharge Medication Sig Dispensed Refills Start Date End Date Levonorgest-Eth Estrad 0 91-Day ([place]) minocycline (AKA MINOCIN) Take 100 mg by 0 100 MG capsule mouth two times a day. minocycline (MINOCIN) 75 MG Take 75 mg by 0 06/05 capsule mouth 2 times daily. pseudoephedrine (SUDAFED) Take 30 mg by 0 015 30 MG tablet mouth every 6 hours as needed for Congestion. ranitidine (aka ZANTAC) Take 1 tablet by 30 tablet 0 201406/06/2014 tablet mouth 2 times daily for 15 days. minocycline (aka MINOCIN) Take 75 mg by 0 015 2015 capsule CAPS mouth 2 times daily. pseudoephedrine (aka Take 30 mg by 0 06/05/2014 0 2015 SUDAFED) tablet mouth every 6 hours as needed for Congestion. documented as of this encounter Progress Notes Babs Patel - 06/05/2014 6:15 PM CDTEncounter addended by: Babs Patel on: 06/12/2014 10:02 AM
Documentation filed: Charges VN Fransisca Davis, [facility] - 06/05/2014 5:58 PM CDT EC SW and SW Runstitching Machine Operator approached the EC Physician to further discuss patient's concerns. EC Physician changed his mind about the consult and did not think that she would be receptive to obtaining resources on anxiety management. He declined the request for consult. [facility] Helper, [phone] pager documented in this encounter ED Notes Delfin Lynch MD - 06/05/2014 6:15 PM CDT Chief Complaint: Chest Pain HPI: Azul Garg is a 33 y.o. female who presents to the emergency center for evaluation of chest pain. The patient reports that she was eating beef tips with gravy last night for dinner when she developed and substernal chest pressure. She describes similar episodes of indigestion in the past with a sensation that something is caught in her throat however usually her symptoms resolve with burping. Today the patient has been unable to relieve the symptoms on her own and due to persistence of the pressure despite use of Zantac this morning, she presents to the ED. Patient reports that her symptoms seemed to intensify while eating lunch today as well. When symptoms are most severe she experiences some associated nausea but denies any difficulty taking PO. The patient denies any cough, shortness of breath, or vomiting. Of note, during my evaluation the patient reports she is going to have a panic attack and that she is extremely anxious about her symptoms. Cardiac Risk Factors: Patient has no history of CAD, hypertension, hyperlipidemia, diabetes, or tobacco use. No family history of heart disease. PE/DVT Risk Factors: Patient has had no recent long distance travel or periods of immobilization. No recent leg pain or swelling. No history of cancer. No recent surgery. No history of tobacco use. No personal or family history of DVT/PE. Medications: minocycline (MINOCIN, DYNACIN) 75 mg capsule pseudoephedrine (SUDAFED) 30 mg tablet Allergies: The patient has no allergies to medications. Past Medical History: The patient has no past pertinent medical history. Past Surgical History: The patient has no past pertinent surgical history. Family History: History of anxiety and panic attach in father. Social History: The patient is single. Review of Systems Constitutional: Negative for fever. Respiratory: Negative for cough and shortness of breath. Cardiovascular: Positive for chest pain. Gastrointestinal: Positive for nausea. Negative for vomiting and diarrhea. Psychiatric/Behavioral: The patient is nervous/anxious. All other systems reviewed and are negative. Triage Vitals Temp 06/05/14 1401 36.9 ??C (98.5 ??F) Temp src 06/05/14 1401 Oral Pulse 06/05/14 1401 115 Resp 06/05/14 1401 17 BP 06/05/14 1401 128/88 mmHg SpO2 06/05/14 1401 98 % Physical Exam Constitutional: She is oriented to person, place, and time. She is cooperative. Non-toxic appearance. She appears distressed (anxious regarding her symptoms and her evaluation). HENT: Head: Atraumatic. Nose: Nose normal. Mouth/Throat: Oropharynx is clear and moist. Eyes: Conjunctivae are normal. Pupils are equal, round, and reactive to light. Neck: Trachea normal and phonation normal. Neck supple. Cardiovascular: Normal rate, regular rhythm and normal heart sounds. Pulmonary/Chest: Effort normal and breath sounds normal. No stridor. No respiratory distress. She has no wheezes. Abdominal: Soft. There is no tenderness. There is no rebound. Musculoskeletal: Normal range of motion. She exhibits no tenderness. Neurological: She is alert and oriented to person, place, and time. She has normal strength. No cranial nerve deficit or sensory deficit. Skin: Skin is warm and dry. Psychiatric: Her speech is normal. Her mood appears anxious. Vitals reviewed. Procedures: None ECG: (13:56 hours) Indication: Chest Pain Interpretation: Sinus tachycardia Otherwise normal ECG No previous ECG's available Vent Rate: 112 BPM R Axes: 70 Imaging: XR Chest (PA and Left Lateral): Two views obtained. The lungs and costophrenic angles are clear. Heart size and pulmonary vascularity are within normal limits. There is no evidence of pneumothorax or pleural effusion. Bony thorax is unremarkable. Dickerson rods at the spine. Reading per radiology. Laboratory: Troponin I: <0.05 ED Course: Interventions: 15:40 Maalox/Viscous Xylocaine 30 ml/30 ml PO 16:36 Ativan 0.5 mg PO Patient's past medical history was reviewed. I went into the room and examined the patient and discussed the plan of care, which included the above laboratory work, ECG, imaging study. I discussed the results of the exam, as well as further plan of care. I reviewed the workup findings with the patient. The patient was discharged home, status improved, with instructions regarding supportive care, medications, and reasons to return as well as the importance of close follow-up was reviewed. Patient was given prescription(s) as below: Medications Prescribed this Visit Disp Refills Start End ranitidine (ZANTAC) 150 mg tablet 30 tablet 0 06/05/2014 06/20/2014 Take 1 tablet by mouth 2 times daily for 15 days. Oral Last EC Vitals: Temp: 36.9 ??C (98.5 ??F) (06/05 140) Temp src: Oral (06/05 1400) Pulse: 104 (06/05 173) Resp: 17 (06/05 140) BP: 113/74 mmHg (06/05 173) SpO2: 98 % (06/05 1401) Impression: Azul Garg is a 33 y.o. female who presents to the emergency department for symptoms of chest pain and catching sensation in her throat. She has continued to be able to eat and drink, however, feels like there is pressure in her upper chest. The symptoms are not exertional. She has no risks for risks of coronary artery disease. With normal ECG and normal troponin, I believe this is extremely unlikely to represent coronary artery disease as the source of her symptoms. She has no risk factors for pulmonary embolism, has normal vital signs, and is PERC score 0. Therefore, I do believe this unlikely to represent pulmonary embolism. Chest XR did not show any pathology that would suggest a source of symptoms. Patient had attempted Maalox and Lidocaine which she indicated she could not drink because the lidocaine made her lips numb. She did have a trial of Lorazepam as she became increasinglyanxious during her stay and was convinced that she had a life threatening source for her symptoms. Itried, on multiple attempts, to reassure patient but patient remains concerned that there is possible serious cause for her symptoms. We did establish a plan for continued outpatient workup of her symptoms. I am concerned this has a large component of anxiety and/or panic disorder as the cause of the patient's symptoms. Diagnosis: Final diagnoses: [786.59] Atypical chest pain [530.11] Gastroesophageal reflux disease with esophagitis Plan: Patient should take ranitidine 150 mg PO did. She has scheduled follow up tomorrow with family medicine. Should she have continued sensation of food catching she may be appropriate for further outpatient workup such as EGD. There is no previous history of food catching or sticking. She is able to swallow liquids here easily. Return to emergency department for worsening symptoms. I, Azul German, am serving as a scribe to document services personally performed by Dr. Lynch based on my observations and the provider's statements to me. 06/05/2014 [facility] Delfin Lynch MD 06/05/14 1844 Rg Franco RN - 06/05/2014 6:15 PM CDT The patient will be discharged to home. Patient is alert and oriented x 4 and patient is stable. Patient discharged by: ambulation accompanied by family. Temp: 36.9 ??C (98.5 ??F) (06/05/14 1401) Pulse: 98 (06/05/14 1808) Resp: 18 (06/05/14 180) BP: 114/72 mmHg (06/05/141807) SpO2: 100 % (06/05/141807) Patient rates pain at a level of 2/10 Discharge instructions for GERD were provided to patient. Prescriptions sent with patient. Patient verbalizes understanding of discharge instructions, reason for discharge and necessary follow-up care. Rg Franco RN - 06/05/2014 4:46 PM CDT Pt states sensation of chest pressure is still present. Rg Franco RN - 06/05/2014 3:55 PM CDT Drank one or two small sips of GI cocktail and pt started to become very anxious. I don't like this! I can't drink this! This is freaking me out! I feel like I can't swallow! -side effects were described as such prior to giving GI cocktail to pt. documented in this encounter Miscellaneous Notes Medication History - Andrew Wilder MD - 06/05/2014 6:15 PM CDT INPATIENT MEDS Encounter Date: 06/05/14 ranitidine (ZANTAC) 150 mg tablet Start Date:06/05/14, End Date:06/06/14, Frequency:2 TIMES DAILY *No Administrations Recorded LORazepam (ATIVAN) 1 mg tablet Start Date:06/05/14, End Date:06/05/14, Frequency:- Taken Dose Action User Route Site Recorded Comment Reason 06/05/14 1636 0.5 mg Given Rg Franco RN - - 06/05/14 1637 VORB: Dr. Lynch. Pt.states she only wants to take. 0.5mg - lidocaine (VISCOUS XYLOCAINE) 2 % solution 30 mL Start Date:06/05/14, End Date:06/05/14, Frequency:ONCE Taken Dose Action User Route Site Recorded Comment Reason 06/05/14 1540 1 mL Given Rg Franco RN Mouth/Throat - 06/05/14 1540 - - aluminum-magnesium hydroxide-simethicone (MAALOX) suspension 30 mL Start Date:06/05/14, End Date:06/05/14, Frequency:ONCE Taken Dose Action User Route Site Recorded Comment Reason 06/05/14 1540 30 mL Given Rg Franco RN Oral - 06/05/14 1540 - - minocycline (MINOCIN, DYNACIN) 75 mg capsule Start Date:-, End Date:-, Frequency:2 TIMES DAILY *No Administrations Recorded pseudoephedrine (SUDAFED) 30 mg tablet Start Date:-, End Date:-, Frequency:EVERY 6 HOURS PRN *No Administrations Recorded ED AVS Snapshot - Andrew Wilder MD - 06/05/2014 6:15 PM CDT Azul Garg Department: [facility] Date of Visit: 06/05/2014 [facility] [address] [place] [id number] Diagnoses this visit Your diagnoses were Atypical chest pain and Inflammation of the esophagus. You were seen by You were seen by Delfin Lynch MD. Follow-up Information Follow up with Jannette Samaniego DO On 06/06/2014. Specialty: Family Medicine Why: @2:00PM [facility] [address] [facility] [address] Follow up with [facility]. Specialty: Emergency Medicine Why: If symptoms worsen Contact information: [address] [place] [address] [phone] Discharge References/Attachments GERD (PASHTO) Appointments for Next 60 Days 06/06/2014 2:00 PM HOSPITAL DISCHARGE [place] [address] Family Medicine [[id number]] 30 min Please check in for your appointment with Jannette Samaniego in the [facility]. Please arrive 15 minutes prior to your appointment. It is important to bring a list of all of your medications and over the counter supplements, your insurance card, copay and photo ID. If you are unable to keep your appointment, please provide us with a 24 hour notice of cancellation. Please arrive 15 minutes prior to your appointment. It is important to bring a list of all of your medications and over the counter supplements, your insurance card, copay and photo ID. If you are unable to keep your appointment, please provide us with a 24 hour notice of cancellation. Take [address] to [facility]. Go east to [employer]. [facility] Turn left into clinic and follow the signs, going straight and then left, to parking ramp. Walk into the building and head up the stairs to the second floor. Major Procedures & Tests Consult Care Integration: ECG 12 Lead Outpatient Emergency Center Draw And Hold: Troponin-I: XR Chest * PA and Left Lateral (Standard) Outpatient Orders ECG 12 Lead Outpatient Emergency Center Draw And Hold: Troponin-I: XR Chest * PA and Left Lateral (Standard) Your Medications START taking these medications Instructions ranitidine 150 mg tablet Commonly known as: ZANTAC Take 1 tablet by mouth 2 times daily for 15 days. CONTINUE taking these medications which have NOT changed Instructions minocycline 75 mg capsule Commonly known as: MINOCIN, DYNACIN pseudoephedrine 30 mg tablet Commonly known as: SUDAFED Where to Get Your Medications These are the prescriptions that you need to pickle cutter. You may get the following medications from any pharmacy - ranitidine 150 mg tablet ` Opioid Medication Information Pain medications are among the most commonly prescribed medicines, so we are including this information for all our patients. If you did not receive pain medication or get a prescription for pain medicine, you can ignore it. You may have been given a prescription for an opioid (narcotic) pain medicine and/or have received apain medicine while here in the Emergency Department. These medicines can make you drowsy or impaired. You must not drive, operate dangerous equipment, or engage in any other dangerous activities whiletaking these medications. If you drive while taking these medications, you could be arrested for DUI, or driving under the influence. Do not drink any alcohol while you are taking these medications. Opioid pain medications can cause addiction. If you have a history of chemical dependency of any type, you are at a higher risk of becoming addicted to pain medications. Only take these prescribed medications to treat your pain when all other options have been tried. Take it for as short a time and asfew doses as possible. Store your pain pills in a secure place, as they are frequently stolen and provide a dangerous opportunity for children or visitors in your house to start abusing these powerful medications. We will not replace any lost or stolen medicine. As soon as your pain is better, you should flush all your remaining medication. Many prescription pain medications contain Tylenol?? (acetaminophen), including Vicodin??, Tylenol #3??, Lannon??, Lortab??, and Percocet??. You should not take any extra pills of Tylenol?? if you are using these prescription medications or you can get very sick. Do not ever take more than 3000 mg of acetaminophen in any 24 hour period. All opioids tend to cause constipation. Drink plenty of water and eat foods that have a lot of fiber, such as fruits, vegetables, prune juice, apple juice and high fiber cereal. Take a laxative if you don???t move your bowels at least every other day. Miralax??, Milk of Magnesia, Colace??, or Senna?? can be used to keep you regular. Magnesia, Colace??, or Senna?? can be used to keep you regular. ` IMPORTANT: We examined and treated you today on an emergency basis only. This was not a substitute for, or and effort to provide, complete medical care. In most cases, you must let your doctor checkyou again. Tell your doctor about any new or lasting problems. We cannot recognize and treat all injuries or illnesses in one Emergency Department visit. If you had special tests, such as EKG's or X-rays, we will review them again within 24 hours. We will call you if there are any new suggestions. After you leave, you should follow the instructions above. General Health Information: Tobacco/Smoking Cessation: If you use tobacco or smoke, this may be your greatest health problem! The facts are clear that tobacco use/smoking will shorten your life. Tobacco use/smoking can cause many illnesses. If you need help to quit using tobacco, talk to your regular doctor. Understanding your medications: Many medications require close follow up with your personal physicians. Medications such as warfarin, (coumadin/Jantoven) lithium, and digoxin (Lanoxin) require blood levels to be checked frequently to assure proper therapy. Please clarify any questions/conserns with your nurse and they will provide you with information and educational material about any medications or refer you to a pharmacist prior to discharge. You are the most important factor in your recovery. Follow the above instructions carefully. Take your medications as prescribed. Most important, see adoctor again as discussed. If you have problems that we have not discussed, call or visit your doctor right away. If you cannot reach your doctor, return to the Emergency Department. ED AVS Snapshot - Andrew Wilder MD - 06/05/2014 6:15 PM CDT Azul Garg Department: [facility] Date of Visit: 06/05/2014 [facility] [address] [place] [address] ` It is very important that you make an appointment with your physician or at the clinic/physician you have been referred to today. It is also very important that you go to that appointment. If you do not follow up with your doctor, it may result in missing an important development which could result in permanent injury, disability, and/or lasting pain. If there are any problems making or keeping your appointment, call your doctor or return to the Emergency Center or an urgent care. You [and patient] are the most important factor in [you]/[patient's] recovery. Follow the above instructions carefully. Medications should be taken exactly as prescribed. Most importantly, see a doctor again as discussed. If you or your loved one has problems that we did not discuss or experience anydifferent or worsening symptoms, call or visit your doctor right away. Remember that you can always come back to the Emergency Center if you are not able to to be seen byyour regular doctor or clinic in the amount of time listed above, if you get any new symptoms, or ifthere is anything that worries you. If you have any questions, call us at [phone]. I have received this information and understand these instructions. My questions have been fully answered. I have discussed any challenges that I see with this plan with the nurse or physician. ` Patient/Responsible person for patient: Date: ` [Patient]/[Responsible person for patient] has received the above discharge instructions and tellsme that all questions have been answered. RN/ Staff Signature: Date: documented in this encounter Plan of Treatment Not on filedocumented as of this encounter Procedures Procedure Name Priority Date/Time Associated Comments Diagnosis XR CHEST 2 VIEWS STAT 06/05/2014 4:00 PM Resul ts for this CDT procedure are i n the results section. EMERGENCY CENTER STAT 06/05/2014 3:42 PM Resul ts for this DRAW AND HOLD CDT procedure are in the results section. TROPONIN I STAT 06/05/2014 3:42 PM Results f or this CDT procedure are i n the results section. ECG 12 LEAD STAT 06/05/2014 1:56 PM Results f or this OUTPATIENT CDT procedure are i n the results section. documented in this encounter Results XR Chest 2 Views (06/05/2014 4:00 PM CDT) Anatomical Region Laterality Modality Chest, Lung Other Specimen (Source) Anatomical Location Collection Method / Collectio n Time Received Time / Laterality Volume Narrative 06/05/2014 4:03 PM CDT COMPARISON: ??None. FINDINGS: ??Two views were obtained. ??T he lungs and costophrenic angles are clear. ??Heart size and pulmonary vascularity are within normal limits. ??There is no evidence of pneumothorax or pleural eff usion. Bony thorax is unremarkable. Mike ington rods at the spine. Procedure Note Yg Merrill MD - 08/02/2015Format ting of this note might be different from the original. COMPARISON: None. FINDINGS: Two views were obtained. The l ungs and costophrenic angles are clear. Heart size and pulmonary vascularity are within normal limits. There is no evidence of pneumothorax or pleural effusion. Bony thorax is unremarkable. Dickerson rods at the spine. Delfin Lynch MD RAD GD Troponin I (06/05/2014 3:42 PM CDT) athologist Signature TROPONIN I <0.05 0.00 - 0.04 HP CONVERSION ng/mL Specimen Anatomical Collection Method Collection Time Receive d Time (Source) Location / / Volume Laterality 06/05/2014 3:42 PM 5 3:53 CDT PM CDT Narrative HP CONVERSION - 06/05/2014 4:20 PM CDT Performed at [facility], [facility] [place] [address] Delfin Lynch MD LAB_1 Performing Organization Address City/State/ZIP Code Phon e Number HP CONVERSION EMERGENCY CENTER DRAW AND HOLD (06/05/2014 3:42 PM CDT) athologist Signature Emergency Drawn HP CONVERSION Center Draw And Hold Extra Lavender Drawn HP CONVERSION Top Drawn Extra PST Top Drawn HP CONVERSION Drawn Extra SST Top Drawn HP CONVERSION Drawn Specimen Anatomical Collection Method Collection Time Receive d Time (Source) Location / / Volume Laterality 06/05/2014 3:42 PM 5 3:53 CDT PM CDT Narrative HP CONVERSION - 06/05/2014 3:58 PM CDT Performed at [facility], [address] [place] [address] Delfin Lynch MD LAB_1 Performing Organization Address City/[facility]/ZIP Code Phon e Number HP CONVERSION ECG 12 Lead Outpatient (06/05/2014 1:56 PM CDT) P athologist Signature Ventricular Rate 112 BPM MUSE [facility] Atrial Rate 112 BPM MUSE [facility] P-R Interval 162 ms MUSE [facility] QRS Duration 84 ms MUSE [facility] QT 330 ms MUSE [facility] QTc 450 ms MUSE [facility] P [place] 51 degrees MUSE [facility] R [place] 70 degrees MUSE [facility] T [place] 34 degrees MUSE [facility] Specimen (Source) Anatomical Collection Method Collection Time Re ceived Time Location / / Volume Laterality 06/05/2014 1:56 PM CDT Narrative MUSE [facility] - 05/17/2019 11:58 AM CDT Sinus tachycardia Otherwise normal ECG No previous ECGs available Confirmed by DELFIN LYNCH ([id number]), continuity editor CARLY LY () on 06/05/2014 10:58:13 PM Procedure Note Epic, Internal Processing - 05/19/2019Fo rmatting of this note might be different from the original. Sinus tachycardia Otherwise normal ECG No previous ECGs available Confirmed by DELFIN LYNCH ([id number]), continuity editor CARLY LY () on 06/05/2014 10:58:13 PM Jose Alfredo Virk MD PN ECG ORDERABLES Performing Organization Address [facility] Phon e Number MUSE [facility] [address] [place] [address] documented in this encounter Visit Diagnoses Diagnosis Atypical chest pain Other chest pain Gastroesophageal reflux disease with eso phagitis Triage Assessment Note - Audra Vanessa RN - 06/05/2014 2:01 PM CDT Pt having a sensation of pressure in her upper chest since last night, started when she was eating. Feels like she needs to cough. Pt was eating beef tips with rice and buns. Sort of feels like something could be stuck in her throat. Pt has been able to drink water. Pain eased up in the night, but when she ate today, same pain returned. Pt teary/anxious at triage. documented in this encounter Care Teams Manufacturing Tech Relationship Specialty Start Date End Date Non Pn, Clinician, PCP - General 06/05/14 10/14/15 [place] [address] documented as of this encounter
--- OUTSIDE RECORDS SUMMARY | 2022-01-07 13:11 | XMS_ITS | Encounter Summary ---
:1980 Author Organization [facility] Address [address] [place] [address] Care Team Providers Name Role Phone Zion Sorto MD Primary Care Provider Reason for Visit Reason Comments Sore Throat pt wants Rx for Zofran EAR,PLUGGED SINUS PAIN/PRESSURE Encounter Details Date Type Department Care Team Description 04/09/2011 Office Visit Urgent Care [facility] [place] Sore throat (Primary Dx) [address] [place] [address] Social History Tobacco Use Types Packs/Day Years Used Date Smoking Tobacco: Never Smokeless Tobacco: Never Alcohol Use Standard Drinks/Week Comments Not Asked 0 (1 standard drink = 0.6 oz pure alcoho l) Sex Assigned at Date Recorded Not on file documented as of this encounter Last Filed Vital Signs Vital Sign Reading Time Taken Comments Blood Pressure 112/72 04/09/2011 4:31 PM TWINE REELING MACHINE OPERATOR Pulse 100 04/09/2011 4:31 PM TWINE REELING MACHINE OPERATOR Temperature 36.5 ??C (97.7 ??F) 04/09/2011 4:31 PM TWINE REELING MACHINE OPERATOR Respiratory Rate 14 04/09/2011 4:31 PM TWINE REELING MACHINE OPERATOR Oxygen Saturation - - Inhaled Oxygen Concentration - - Weight 69.4 kg (153 lb) 04/09/2011 4:31 PM TWINE REELING MACHINE OPERATOR Height 161.3 cm (5' 3.5) 04/09/2011 4:31 PM TWINE REELING MACHINE OPERATOR Body Mass Index 26.68 04/09/2011 4:31 PM TWINE REELING MACHINE OPERATOR documented in this encounter Progress Notes Fauzia Riley RN - 04/11/2011 5:40 PM TWINE REELING MACHINE OPERATOR Quick Note: Negative throat culture noted.Fauzia Riley RN 04/11/2011, 5:40 PM E REELING MACHINE OPERATOR Robbie Anaya - 04/09/2011 5:20 PM CST AZUL TELLEZ is a 30 yr old female who came to the clinic complaining of a sore throat whichstarted 3 days prior to presentation. The patient described the pain as having a gradual onset, sharp with intermittent radiation to the ears, like a burning sensation, aggravated by swallowing. The patient had no cough. She had no headaches, fever or chills. Denied having any visual disturbances. No rashes. No shortness of breath, chest pain or weight loss. Fair appetite, no nausea, no diarrhea or constipation. No abdominal pain or urinary symptoms. No weakness or numbness. The patient is 15 weeks . PMHx: There is no problem list on file for this patient. SHx: no smoking PE BP 112/72 Pulse 100 Temp(Src) 97.7 ??F (36.5 ??C) (Oral) Resp 14 Ht 5' 3.5 (1.613 m) Wt 153 lb (69.4 kg) BMI 26.68 kg/m2 Throat: erythematous, no discharge on the tonsils Neck: supple, JVD (-), no thyromegaly, no lymphadenopathy Pulmonary: breath sounds normal, no adventitial sounds Neuro: alert, oriented x 3, no gross deficits Skin: no active lesions Rapid Strep Test: negative ASSESSMENT Pharyngitis PLAN Tylenol for pain control Also requested a refill for her Kirsten Return to clinic in 2 weeks if not better, sooner as needed E REELING MACHINE OPERATOR documented in this encounter Plan of Treatment Not on filedocumented as of this encounter Procedures Procedure Name Priority Date/Time Associated Diagnosis Comme nts STREP GRP A, RAPID Waiting 04/09/2011 4:50 PM Sore throat Res ults for this SCREEN TWINE REELING MACHINE OPERATOR procedure are i n the results section. STREP GRP A, THROAT Routine 04/09/2011 4:50 PM Re sults for this CULTURE ONLY TWINE REELING MACHINE OPERATOR procedure are i n the results section. documented in this encounter Results STREP GRP A, THROAT CULTURE ONLY (04/09/2011 4:50 PM TWINE REELING MACHINE OPERATOR) [facility] Method Time Signature Grp A Culture Negative NEG [facility] Final Specimen Anatomical Collection Method Collection Time Receive d Time (Source) Location / / Volume Laterality 04/09/2011 4:50 PM 2 4:56 TWINE REELING MACHINE OPERATOR PM TWINE REELING MACHINE OPERATOR Gavi Roldan PA-C LAB_1 Performing Organization Address [facility] Phon e Number [facility] [phone] [facility] [address] [place] [phone] STREP GRP A, RAPID SCREEN (04/09/2011 4:50 PM TWINE REELING MACHINE OPERATOR) [facility] Method Time Signature Grp A Rapid Negative [facility] Screen Specimen Anatomical Collection Method Collection Time Receive d Time (Source) Location / / Volume Laterality 04/09/2011 4:50 PM 2 4:56 TWINE REELING MACHINE OPERATOR PM TWINE REELING MACHINE OPERATOR Gavi Roldan PA-C LAB_1 Performing Organization Address [facility] Phon e Number [employer] [phone] [address] documented in this encounter Visit Diagnoses Diagnosis Sore throat - Primary Acute pharyngitis documented in this encounter Care Teams Tax Credit Leasing Consultant Relationship Specialty Start Date End Date Zion Sorto MD PCP - General 07/16/04 06/04/[address] [id number] documented as of this encounter
--- OUTSIDE RECORDS SUMMARY | 2022-01-07 13:11 | XMS_ITS | Encounter Summary ---
:1980 Author Organization [facility] Address [address] [place] [address] Care Team Providers Name Role Phone Zion Sorto MD Primary Care Provider Reason for Visit Reason Onset Date Comments QUESTIONS, GENERAL 04/07/2011 Encounter Details Date Type Department Care Team Description 04/07/2011 Telephone Careline Unassigned, Provider QUESTIONS, GENERAL [address] [place], [place] [address] [place] [address] Social History Tobacco Use Types Packs/Day Years Used Date Smoking Tobacco: Never Smokeless Tobacco: Never Alcohol Use Standard Drinks/Week Comments Not Asked 0 (1 standard drink = 0.6 oz pure alcoho l) Sex Assigned at Date Recorded Not on file documented as of this encounter Nursing Notes Sandhya To RN - 04/07/2011 5:18 PM CST TRIAGE REFERENCE: NAUSEA DURING - & CNG (c) 2010 STAT SYMPTOMS:none OB INFORMATION Pt stated she was seen @ 02/15. Was prescribed Zofran. Has 3 tabs left. Requesting a refill. Pt is not followed by [facility] currently. Unsure if she will make appt for OB care through . LMP:Nov or Dec 2010 Weeks Gestation:14w Movement: No ROM: No Vaginal Discharge: None ASSESSMENT Nausea Occurs:daily Vomiting: Yes Able to keep fluids down: Yes, Amount:sm amt, frequent Urinary Symptoms: None Contractions: None PMH: Healthy CURRENT MEDICATIONS: Yes/Zofran MEDICATION ALLERGIES: No HOME TREATMENT: discussed per guideline Eat crackers at bedside before getting up Move slowly upon rising Eat frequent small meals Eat on the EVEN hour, drink fluids on the ODD hour Eat bland foods and drink bland juices, not citrus Avoid greasy, spicy foods and use sips of flat cola, 7-Up, Gatorade or Powerade If unable to keep liquids down for 12-15 hour period, call clinic or provider PLAN:clinic appt. Pt stated she would call back to make appt. Sandhya To, RN ICAL SUPPORT ASSOCIATE Martin Jean - 04/07/2011 4:36 PM CST Medication Questions: Name or Type of Medication: MEDICATION FOR MORNING SICKNESS. ONDANSETRON Dose: 4 MILLIGRAMS How often do you take it?: ONCE OR TWICE A DAY Who prescribed it?: DR. SPRING What is your question/concern?: PT JUST FOUND OUT SHE IS SO SHE NEEDS A REFILL. PT HAS NOT HAD HER 1ST OB APPOINTMENT Is it okay to leave a detailed message on your voicemail?: YES If after 3 pm, can this wait until tomorrow?: Pt was asked, Do you want to have this filled at ([facility]) pharmacy? Pts preferred pharmacy hasbeen entered in the pharmacy field. JANIE TUBBS PARAGONAH IN [place] ICAL SUPPORT ASSOCIATE documented in this encounter Plan of Treatment Not on filedocumented as of this encounter Visit Diagnoses Not on filedocumented in this encounter Care Teams Director Of Web Marketing Relationship Specialty Start Date End Date Zion Sorto MD PCP - General 07/16/04 06/04/[id number] [place] [place] [id number] documented as of this encounter
--- OUTSIDE RECORDS SUMMARY | 2022-01-07 13:11 | XMS_ITS | Encounter Summary ---
:1980 Author Organization [facility] Address [address] [place] [address] Care Team Providers Name Role Phone Zion Sorto MD Primary Care Provider Reason for Visit Reason Onset Date Comments OB EXAM,INITIAL 04/12/2011 Encounter Details Date Type Department Care Team Description 04/12/2011 Telephone [facility] Obstetrics and Bri Morris RN, OB EXAM,INITIAL Gynecology [facility] [address] [facility] [address] [place] [address] [place] [address] [phone] (Wo rk) Social History Tobacco Use Types Packs/Day Years Used Date Smoking Tobacco: Never Smokeless Tobacco: Never Alcohol Use Standard Drinks/Week Comments Not Asked 0 (1 standard drink = 0.6 oz pure alcoho l) Sex Assigned at Date Recorded Not on file documented as of this encounter Nursing Notes Anuja Paredes RN - 04/12/2011 2:45 PM CST Azul Garg had positive test on jan??/. LNMP dec 26. 5. Para 1122. VINCENT 10/04/11. Says that she can feel the baby move ASSESSMENT OF ECTOPIC RISK FACTORS: Any abdominal pain or menstrual cramping for more than 3 hours since LNMP? No Any bleeding/spotting (more than one episode pink to red spotting) since LNMP? No Is either question above answered yes? No No results found for this basename: hgb Normal: 12-17 Complicating history includes: None. Has patient taken any OTC medicine since LNMP? YES. Advised to discontinue OTC meds and discuss withprovider at first visit Has patient taken any of the following prescription medications since LNMP? Thyroid: No Asthma: No Insulin or oral hypoglycemics: No Tetracycline/Doxycycline/Acne medication: No Antibiotics for present infection:No BCP:No Anti-depressants, anticonvulsants, anti-hypertensives or any other prescription medications:No she was zofran at u/c Patient does not use tobacco. Patient does not use alcohol. Patient does not use recreational drugs. History of chicken pox? don't know. PLAN: She will call with bleeding cramping or vomiting for 24hours and she was also given the babyline# No results found for this basename: ABO No results found for this basename: hcgquant R PLAN POSITIVE Advised to begin folic acid 0.8mg every day. No cat Anuja Paredes RN MA PROCESSING TECHNICIAN Delvis Patiño - 04/12/2011 1:05 PM CST New pt pt has 1st Ob scheduled with Cleo Morris April 21 at 2:00 pm appt was made per online request MA PROCESSING TECHNICIAN documented in this encounter Plan of Treatment Not on filedocumented as of this encounter Visit Diagnoses Not on filedocumented in this encounter Care Teams Lung Puller Relationship Specialty Start Date End Date Zion Sorto MD PCP - General 07/16/04 06/04/14 [address] [place] [id number] documented as of this encounter
--- OUTSIDE RECORDS SUMMARY | 2022-01-07 13:11 | XMS_ITS | Encounter Summary ---
:1980 Author Organization [facility] Address [address] [place] [address] Care Team Providers Name Role Phone Judith Almeida MD Primary Care Provider Encounter Details Date Type Department Care Team Description 10/05/2002 Orders Only [facility] Destin Lorenzo Laboratory MD [address] [place] [id number] [place], [place] [id number] (Wo rk) Social History Tobacco Use Types Packs/Day Years Used Date Smoking Tobacco: Never Assessed Sex Assigned at Date Recorded Not on file documented as of this encounter Plan of Treatment Not on filedocumented as of this encounter Procedures Procedure Name Priority Date/Time Associated Diagnosis Comme nts BETA STREP FOLLOWUP Routine 10/05/2002 6:28 PM Re sults for this CDT procedure are i n the results section. documented in this encounter Results BETA STREP FOLLOWUP (10/05/2002 6:28 PM CDT) Component Value Ref Test Analysis Performed At [facility] [place] Method Time Signature Specimen Throat Swab REGIONS Description Special None REGIONS Requests Culture No Beta REGIONS Hemolytic Streptococcus Isolated Report Status Final REGIONS Report Status [id number] REGIONS Specimen Anatomical Collection Method Collection Time Receive d Time (Source) Location / / Volume Laterality 10/05/2002 6:28 PM 3 7:38 CDT PM CDT Destin Lorenzo Jr., MD LAB_1 Performing Organization Address City/State/[place] [address] [place], [place] [phone] documented in this encounter Visit Diagnoses Not on filedocumented in this encounter Care Teams Water Meter Installer Relationship Specialty Start Date End Date Judith Almeida MD PCP - General 11/28/01 07/15/04 [address] [place] [address] documented as of this encounter
--- OUTSIDE RECORDS SUMMARY | 2022-01-07 13:11 | XMS_ITS | Encounter Summary ---
:1980 Author Organization [facility] Address [address] [place] [address] Care Team Providers Name Role Phone Zion Sorto MD Primary Care Provider Encounter Details Date Type Department Care Team Description 03/27/2021 yossi Delgado [phone] Social History Tobacco Use Types Packs/Day Years Used Date Smoking Tobacco: Never Smokeless Tobacco: Never Alcohol Use Standard Drinks/Week Comments No 0 (1 standard drink = 0.6 oz pure alcoho l) Sex Assigned at Date Recorded Not on file documented as of this encounter Progress Notes FAMILY MEDICINEYOSSI PROVIDER - 03/27/2021 10:54 AM CST yossi Treatment Plan Diagnosis Viral Upper Respiratory Infection Visit Date March 27, 2021 Azul Dinh Date of : 84 Provider Loyda Sharif, Nurse Practitioner Note From Provider Azul,Let?? get you feeling better!ased on your current symptoms, you have a sinus infection that iscaused by a virus. our current symptoms are caused by inflammation from the virus -- not bacteria ??so fortunately you don?? need to take an antibiotic right now.ur focus needs to be on decreasing inflammation and thinning out the mucus so you can feel better, faster!he ibuprofen and Mucinex as listed, along with nasal saline spray every 3-4 hours will help you feel better.heck out the other self-care tips I??e listed below and be sure to watch the video, too. A typical viral illness lasts about 7-10 days. If your symptoms don?? improve or happen to worsen, please Request a Call Back. We??l adjust your treatment plan for free. Feel better soon!Sincerely,SANTOSH Scales Treatment Plan Let?? get you feeling better by using a special blend of nieb-mif-sljqmmy products to reduce your pain and other common VURI symptoms such as inflammation, fever, and cough wherever you are in you VURIprogression. Because this infection is viral, an antibiotic won?? be effective at soothing your sympt oms or treating the virus. If your symptoms don't start to improve after 3 days, or if you have questions, select Help to Request a Call Back and we'll adjust your treatment for free. Order(s) None Treatment Plan Self Care Tip Topics Humidify Symptom Relief with Ibuprofen and an Expectorant Steam Therapy Soothing Foods and Drinks What to Expect Your symptoms are often related to how far along you are with your viral upper respiratory infection. Early on you may have fever, fatigue or a sore throat. Symptoms can progress to nasal congestion with sinus pain and pressure, which often turns into a wet, productive cough. The tail end of a VURI typically includes a dry cough which may last 2-3 weeks after the other symptoms have passed. If you follow the recommendations I made on the Treatment tab, your current symptoms should start to improve within 3 days. As your symptoms evolve, follow the suggestions in your treatment plan to feel more like yourself. A typical VURI may take as long as 2-3 weeks to clear up fully.If your symptoms don?? start to improve after 3 days, if you have questions, or if you have the symptoms below, select Help to Request a Call Back and we??l adjust your treatment for free. What to Watch Out For Give us a call immediately if you experience: ??? Shortness of breath ??? Wheezing ??? Difficulty swallowing ??? High fevers ??? Worsening cough ??? Worsening or persistent sore throat ??? Presence of white or yellow spots on your tonsils ??? Presence of red spots on the roof of your mouth or back of your throat ??? Tender, swollen glands along with swollen tonsils ??? Abdominal pain, nausea or vomiting ??? Rash on your trunk or arms My Conditions, Orders, Allergies as of March 27, 2021 Standard condition list None Current orders None Allergies None [facility] Information [facility] by [facility] We are an online clinic open 05/09. If you have any questions or comments about this visit, please call or email [email or web address] ICE DELIVERY DIRECTOR documented in this encounter Plan of Treatment Not on filedocumented as of this encounter Visit Diagnoses Not on filedocumented in this encounter Care Teams Application Programmer Analyst Relationship Specialty Start Date End Date Zion Sorto MD PCP - General 10/15/15 [address] [address] [facility] [place] [address] documented as of this encounter
--- OUTSIDE RECORDS SUMMARY | 2022-01-07 13:11 | XMS_ITS | Encounter Summary ---
:1980 Author Organization [facility] Address [address] [place] [address] Care Team Providers Name Role Phone Zion Sorto MD Primary Care Provider Reason for Visit Reason Comments Eye Exam Encounter Details Date Type Department Care Team Description 11/30/2016 [facility] Visit [facility] Kathy Montes, OD Myopia of right eye (Primary Dx); Ophthalmology [address] Myopia of left eye with asti gmatism; [address] Vitreous syneresis, [place] [address] [phone] (Wo rk) Social History Tobacco Use Types Packs/Day Years Used Date Smoking Tobacco: Never Smokeless Tobacco: Never Alcohol Use Standard Drinks/Week Comments No 0 (1 standard drink = 0.6 oz pure alcoho l) Sex Assigned at Date Recorded Not on file documented as of this encounter Progress Notes Kathy Montes, OD - 11/30/2016 10:05 AM CDT Chief Complaint Patient presents with ??? Eye Exam Azul Garg appears alert and oriented x 3 and basically healthy. The patient's problem list, medical history, medications, allergies, family and social history were reviewed and updated as appropriate. Assessment: ICD-10-CM 1. Myopia of right eye H52.11 Refractive State, Determination Of - Bilateral 2. Myopia of left eye with astigmatism H52.12 Refractive State, Determination Of - Bilateral H52.202 3. 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 Educated patient on condition, changes and options. Recommend go with new glasses rx. RTC 1 yr for CE or sooner if concerns regarding changes in vision or difficult adaptation to new glasses prescription. 3. Ed. Pt on condition and gave brochure. Rec pt RTC if increase in floaters, with flashes, or blackveil. Mtr CE 1 yr. *recommend pt use AT without redness reliever documented in this encounter Plan of Treatment Not on filedocumented as of this encounter Visit Diagnoses Diagnosis Myopia of right eye - Primary Myopia Myopia of left eye with astigmatism Vitreous syneresis, bilateral documented in this encounter Care Teams Director Advertising Relationship Specialty Start Date End Date Zion Sorto MD PCP - General 10/15/[address] [place] [id number] documented as of this encounter
--- OUTSIDE RECORDS SUMMARY | 2022-01-07 13:11 | XMS_ITS | Encounter Summary ---
:1980 Author Organization [facility] Address [address] [place] [address] Care Team Providers Name Role Phone Zion Sorto MD Primary Care Provider Encounter Details Date Type Department Care Team Description 03/31/2021 yossi Delgado [phone] Social History Tobacco Use Types Packs/Day Years Used Date Smoking Tobacco: Never Smokeless Tobacco: Never Alcohol Use Standard Drinks/Week Comments No 0 (1 standard drink = 0.6 oz pure alcoho l) Sex Assigned at Date Recorded Not on file documented as of this encounter Progress Notes FAMILY MEDICINEYOSSI PROVIDER - 03/31/2021 9:06 AM CST yossi Treatment Plan Diagnosis Seborrheic Dermatitis Visit Date March 31, 2021 Azul Dinh Date of : 84 Provider Kristan Garcia, Nurse Practitioner Note From Provider Azul, I hope you have improvement soon! Take careKristan Treatment Plan Since you have seborrheic dermatitis, let?? try a prescription strength anti- fungal shampoo for skinand scalp application. I sent a prescription to [facility] . I??e also listed some additional self-care tips to soothe discomfort and promote healing. If your symptoms don't improve after 2 months, if you have questions, or need a refill within the next year, please use the Request a Call Back button and we'll adjust your treatment for free. Order(s) ketoconazole 2% shampoo Apply liberally top twice a week as directed for 14 days Note: Apply shampoo, rinse after 5 minutes. Refills: 1 Sent To: [facility] [address] [place], [place] [id number] Treatment Plan Self Care Tip Topics Using Your Anti-fungal Shampoo What to Expect If you follow the recommendations I made on the Treatment tab, you should notice an improvement in acouple of months. If your symptoms don't improve after 2 months, if you have questions, or need a refill on your prescription within the next year, please use the Request a Call Back button and we'll adjust your treatment for free. After a year, start a new interview on [employer] and we??l help create a new treatment plan for you. What to Watch Out For Give us a call if you experience: ??? Worsening rash ??? Yellow or white drainage ??? Red streaking from the site of the rash ??? Fevers My Conditions, Orders, Allergies as of March 31, 2021 Standard condition list None Current orders ketoconazole (ketoconazole) Allergies None [employer] Information [facility] We are an online clinic open 05/09. If you have any questions or comments about this visit, please call or email [email or web address] CTOR OF PERIOPERATIVE SERVICES documented in this encounter Plan of Treatment Not on filedocumented as of this encounter Visit Diagnoses Not on filedocumented in this encounter Care Teams Renal Social Worker Relationship Specialty Start Date End Date Zion Sorto MD PCP - General 10/15/[address] [place] [id number] documented as of this encounter
--- OUTSIDE RECORDS SUMMARY | 2022-01-07 13:11 | XMS_ITS | Encounter Summary ---
:1980 Author Organization [facility] Address [address] [place] [address] Care Team Providers Name Role Phone Judith Almeida MD Primary Care Provider Encounter Details Date Type Department Care Team Description 07/27/2002 Office Visit MALO MARBELLA DEFAULT Unassigned, Provider LICE [address] [place] [address] Social History Tobacco Use Types Packs/Day Years Used Date Smoking Tobacco: Never Assessed Sex Assigned at Date Recorded Not on file documented as of this encounter ED Notes ObdulioKenton Anahy - 07/27/2002 12:00 AM CDTLog Number: [id number] DATE OF VISIT: 07/27/2002 PRIMARY CLINIC: NONE. FINAL DIAGNOSIS: Pediculosis. HISTORY OF PRESENT ILLNESS: The patient is a 21-year-old female adult who has had about a month irritation in her scalp with a lot of itching and some small bugs that she removed. Apparently a number of people, including her mother who is a nurse and several pharmacists, have told her she does not have lice. The itching has increased over the last few days, and she has a lot of flaking in her scalp as well. She has no known contact with lice. PAST MEDICAL HISTORY: Described as otherwise unremarkable. The patient does not have a primary clinic. CURRENT MEDICATIONS: Amoxicillin, which was started several days ago for strep pharyngitis. FAMILY HISTORY: Noncontributory. SOCIAL HISTORY: The patient is an active cigarette smoker. PHYSICAL EXAMINATION VITAL SIGNS: Blood pressure is 113/66. Heart rate 103. Respiratory rate 16. Pulse oximetry is 100% on room air. Temperature 97.4. GENERAL: Well-nourished, well-developed female adult who is alert and conversant. HEENT: Examination of her scalp shows a fair amount of flaky scale as well as numerous nits, most of them between 1 and 2 cm above the scalp. Examination of some of the removed insects on her scalp show small, slightly oblong insects consistent with lice. They all have approximately 6 legs and are pale in color with some darker markings on their margins. ASSESSMENT: Pediculosis. PLAN: I discussed the possibility of a lice infestation despite the fact that numerous other consultations have stated against this. We do not have much in the way of good photographs here for identifying various forms of lice, but what we do have suggests that the more elongated lice are consistent with body lice as opposed to pediculosis capitis. I discussed the treatment of choice which in my view would be 5% permethrin, and the patient will try Elimite cream with a repeat treatment for 10 minutes in 1 week's time. We also discussed hygiene around the house and combing out the nits. Instructions on lice were given out as well. mmj Dictated: 07/27/2002 17:27:37 Charles Mak MD Transcribed: 07/29/2002 06:38:40 Doc #: [id number] cc: Page 1 Patient Name: AZUL MCCLELLAN Visit Date: 07/27/2002 EMERGENCY MEDICINE NOTE CONFIDENTIAL MEDICAL RECORD [address] [address] Page 1 Patient: AZUL MCCLELLAN Location: [facility]: Date of : 1980 Visit Date: 07/27/2002 EMERGENCY MEDICINE NOTE documented in this encounter Plan of Treatment Not on filedocumented as of this encounter Visit Diagnoses Diagnosis Pediculus capitis (head louse) documented in this encounter Care Teams Supervisor Plastic Sheets Relationship Specialty Start Date End Date Judith Almeida MD PCP - General 11/28/01 07/15/04 [address] [place] [address] documented as of this encounter
--- OUTSIDE RECORDS SUMMARY | 2022-01-07 13:11 | XMS_ITS | Encounter Summary ---
:1980 Author Organization formerly [facility] Address [address] [place] [address] Care Team Providers Name Role Phone Zion Sorto MD Primary Care Provider Encounter Details Date Type Department Care Team Description 07/14/2004 Emergency Room Emergency Dept Emergency, [facility] Emergency [address] [place] [address] Provider Orders/[place] [address] Social History Tobacco Use Types Packs/Day Years Used Date Smoking Tobacco: Never Assessed Sex Assigned at Date Recorded Not on file documented as of this encounter Progress [facility] Emergency, Provider - 07/14/2004 12:00 AM CDT documented in this encounter Plan of Treatment Not on filedocumented as of this encounter Visit Diagnoses Not on filedocumented in this encounter Care Teams Gas Appliance Servicer Helper Relationship Specialty Start Date End Date Zion Sorto MD PCP - General 07/16/04 06/04/14 [address] [place] [id number] documented as of this encounter
--- OUTSIDE RECORDS SUMMARY | 2022-01-07 13:11 | XMS_ITS | Encounter Summary ---
:1980 Author Organization [employer] [facility] Address [address] [place] [address] Care Team Providers Name Role Phone Zion Sorto MD Primary Care Provider Encounter Details Date Type Department Care Team Description 01/04/2022 Telemedicine [facility] [address] MD Endocrinology [address] [place] [address] [place], [place] [address] [phone] Social History Tobacco Use Types Packs/Day Years [...] on filedocumented in this encounter Care Teams Ship Pilot Dispatcher Relationship Specialty Start Date End Date Zion Sorto MD PCP - General 10/15/15 [address] [place], [place] [address] documented as of this encounter
--- OUTSIDE RECORDS SUMMARY | 2022-01-07 13:11 | XMS_ITS | Encounter Summary ---
:1980 Author Organization [facility] Address [address] [place] [address] Care Team Providers Name Role Phone Zion Sorto MD Primary Care Provider Encounter Details Date Type Department Care Team Description 04/15/2017 yossi Deglado [phone] Social History Tobacco Use Types Packs/Day Years Used Date Smoking Tobacco: Never Smokeless Tobacco: Never Alcohol Use Standard Drinks/Week Comments No 0 (1 standard drink = 0.6 oz pure alcoho l) Sex Assigned at Date Recorded Not on file documented as of this encounter Progress Notes FAMILY MEDICINEYOSSI PROVIDER - 04/15/2017 12:00 AM CST yossi Treatment Plan Diagnosis Bacterial Vaginosis (BV) Visit Date April 15, 2017 Azul Dinh Date of : 84 Provider Beena Narayanan, Nurse Practitoner Note From Provider Javi Liang. I'm sorry you are having these symptoms. I sent in the prescription we discussed to your pharmacy. I hope you feel better soon. If you have any questions or concerns please let us know. We'realways open! Take care, SANTOSH Hargrove Treatment Plan Let???s try a topical antibiotic for your bacterial vaginosis. I sent a prescription to [facility] [address]. Make sure to take all of the antibiotic prescribed, according to the directions, evenif your symptoms resolve after a few doses. I???ve also listed a few of the best ways to soothe your discomfort and some additional self-care tips to promote healing. If your symptoms don???t improve after 4 days, or if you have questions, please select Help to Request a Call Back and we'll talk aboutyour next steps for free. Order(s) metronidazole 0.75% gel Insert 1 applicatorful into vagina at bedtime as directed for 5 days Note: Refills: None Sent To: [facility] [id number] [address] [id number] Treatment Plan Self Care Tip Topics Avoid Douching Partner Treatment Get Tested Contagious What to Expect If you follow the recommendations I made on the Treatment tab, your symptoms should improve in about4 days. If your symptoms don???t improve after 4 days, or if you have questions, please select Help to Request a Call Back and we'll help determine your next step for free. What to Watch Out For Give us a call if you experience: ??? Shaking chills ??? High fever ??? Severe pain in your back, abdomen or pelvis ??? Frequent, painful urination ??? Blood in the urine ??? Painful intercourse My Conditions, Orders, Allergies as of April 15, 2017 Standard condition list None Current orders metronidazole (metronidazole) Allergies None [facility] Information [facility] [employer] We are an online clinic open 05/09. If you have any questions or comments about this visit, please call or email [email or web address]. RAFT MECHANIC documented in this encounter Plan of Treatment Not on filedocumented as of this encounter Visit Diagnoses Not on filedocumented in this encounter Care Teams Computer Mechanic Relationship Specialty Start Date End Date Zion Sorto MD PCP - General 10/15/[address] [place] [address] documented as of this encounter
--- OUTSIDE RECORDS SUMMARY | 2022-01-07 13:12 | XMS_ITS | Encounter Summary ---
:1980 Author Organization [facility] Address [address] [place] [address] Care Team Providers Name Role Phone Judith Almeida MD Primary Care Provider Reason for Visit Reason Comments bugs in her hair Encounter Details Date Type Department Care Team Description 07/27/2002 Telephone Careline Ani Aldridge RN [address] [place], [place] [address] [address] [facility] [phone] [place] [address] Social History Tobacco Use Types Packs/Day Years Used Date Smoking Tobacco: Never Assessed Sex Assigned at Date Recorded Not on file documented as of this encounter Nursing Notes 07/27/2002 11:59 PM CDT >> ANI ALDRIDGE Sat Jul 27, 2002 3:43 PM >> COMPLETED ON Sat Jul 27, 2002 3:47 PM >> CALL RECEIVED. Contact: Concern:caller wanting to be seen in urgent care-state she has bugs in her hair-went to a pharmacy a nd was told not head lice- Has been noting these bugs on her shoulders and clothing for abour 3 weeks-and now has figured out t hey were on her scalp= Not willing to give much mor info- Plan:Caller transfered to appt center for scheduling of an appt in clinic. documented in this encounter Plan of Treatment Not on filedocumented as of this encounter Visit Diagnoses Not on filedocumented in this encounter Care Teams Welder Assistant Relationship Specialty Start Date End Date Judith Almeida MD PCP - General 11/28/01 07/15/04 [address] [place] [address] documented as of this encounter
--- OUTSIDE RECORDS SUMMARY | 2022-01-07 13:12 | XMS_ITS | Encounter Summary ---
:1980 Author Organization [facility] Address [address] [place] [address] Care Team Providers Name Role Phone Judith Almeida MD Primary Care Provider Encounter Details Date Type Department Care Team Description 03/10/2002 Orders Only [facility] Palak Lucero MD Laboratory [address] [place], [place] [id number] [place] [address] [place] [address] [phone] Social History Tobacco Use Types Packs/Day Years Used Date Smoking Tobacco: Never Assessed Sex Assigned at Date Recorded Not on file documented as of this encounter Plan of Treatment Not on filedocumented as of this encounter Procedures Procedure Name Priority Date/Time Associated Diagnosis Comme nts HCG, QUANTITATIVE, Waiting 03/10/2002 1:59 PM Res ults for this SERUM SPEECH WRITER procedure ar e in the results section. documented in this encounter Results HCG, QUANT., SERUM (03/10/2002 1:59 PM SPEECH WRITER) P athologist Signature HCG, Quant. 220 mIU/ml [facility] Preg. Specimen Anatomical Collection Method Collection Time Receive d Time (Source) Location / / Volume Laterality 03/10/2002 1:59 PM 3 2:09 SPEECH WRITER PM SPEECH WRITER Evan Lucero MD LAB_1 Performing Organization Address City/State/ZIP Code Phon e Number [address] [address] [place], [place] [phone] documented in this encounter Visit Diagnoses Not on filedocumented in this encounter Care Teams Tube Building Machine Operator Relationship Specialty Start Date End Date Judith Almeida MD PCP - General 11/28/01 07/15/04 [address] [place] [address] documented as of this encounter
--- OUTSIDE RECORDS SUMMARY | 2022-01-07 13:12 | XMS_ITS | Encounter Summary ---
:1980 Author Organization [facility] Address [address] [place] [address] Care Team Providers Name Role Phone Judith Almeida MD Primary Care Provider Encounter Details Date Type Department Care Team Description 03/07/2002 Orders Only [facility] Maxx Mccarty MD Laboratory [address] [place] [id number] [place] [id number] [phone] Social History Tobacco Use Types Packs/Day Years Used Date Smoking Tobacco: Never Assessed Sex Assigned at Date Recorded Not on file documented as of this encounter Plan of Treatment Not on filedocumented as of this encounter Procedures Procedure Name Priority Date/Time Associated Diagnosis Comme nts WET PREP Waiting 03/07/2002 8:35 PM Results f or this POLLUTION CONTROL TECHNICIAN procedure are i n the results section . documented in this encounter Results WET PREP (03/07/2002 8:35 PM POLLUTION CONTROL TECHNICIAN) [facility] gist Method Time Signature Trichomonas No Trichomonas [facility] seen Yeast No Yeast Found [facility] Clue Cells Clue Cells [facility] present Specimen Anatomical Collection Method Collection Time Receive d Time (Source) Location / / Volume Laterality 03/07/2002 8:35 PM 3 9:24 POLLUTION CONTROL TECHNICIAN PM POLLUTION CONTROL TECHNICIAN Maxx Mccarty MD LAB_1 Performing Organization Address City/State/ZIP Code Phon e Number [address] [id number] [place], [place] [phone] documented in this encounter Visit Diagnoses Not on filedocumented in this encounter Care Teams Minute Clerk For Basic Traffic Relationship Specialty Start Date End Date Judith Almeida MD PCP - General 11/28/01 07/15/04 [address] [place] [address] documented as of this encounter
--- OUTSIDE RECORDS SUMMARY | 2022-01-07 13:12 | XMS_ITS | Encounter Summary ---
:1980 Author Organization [facility] Address [address] [place] [address] Care Team Providers Name Role Phone Judith Almeida MD Primary Care Provider Encounter Details Date Type Department Care Team Description 07/24/2002 Office Visit REDO MARBELLA SERRATO Unassigned, ACUTE TO NSILLITIS; Provider ACUTE PHARYNGITIS(SORE THROAT) [address] [place] [address] Social History Tobacco Use Types Packs/Day Years Used Date Smoking Tobacco: Never Assessed Sex Assigned at Date Recorded Not on file documented as of this encounter ED Notes Denise Gustafson - 07/24/2002 12:00 AM CDTLog Number: [id number] CHIEF COMPLAINT: Sore throat. HISTORY OF PRESENT ILLNESS: This is a 22-year-old female who describes a sore throat for the past 3 days that has been gradually getting worse. It is associated with body aches, left-sided ear pain, and fever. She denies any rhinorrhea or cough. She denies any recent strep exposures. She admits that she is drinking, but only drinks soda and is not drinking water, but is drinking and eating. It is painful to swallow, but is doing so. She has been taking ibuprofen for pain with some good relief. She denies any nausea, vomiting, diarrhea, constipation, or any rashes, flank pain, dysuria, frequency, urgency, or hematuria. She denies any other associated symptoms. PAST MEDICAL HISTORY: Negative. MEDICATIONS: None. ALLERGIES: NO KNOWN DRUG ALLERGIES. REVIEW OF SYSTEMS/SOCIAL HISTORY/FAMILY HISTORY: See doctor's shingle. PHYSICAL EXAMINATION: GENERAL: The patient is well-developed and well-hydrated appearing female in NAD. VITAL SIGNS: Blood pressure 114/64, pulse 131, respiratory rate 18, temperature 99.7 degrees Fahrenheit orally, sats 100% on room air. Recheck on her temperature was 100.8. HEENT: Conjunctivae pink. Sclerae white. Pupils equal, round and reactive to light and accommodation. Extraocular movements intact. TMs are clear bilaterally. Lips and buccal mucosa are moist. Posterior pharynx shows red swollen exudative tonsils. Uvula is midline. No obvious trismus is noted. NECK: Supple with tonsillar adenopathy. LUNGS: Clear to auscultation bilaterally. HEART: A regular rate and rhythm without murmurs, rubs, or gallops. EMERGENCY ROOM COURSE: The patient is given some p.o. fluids here and is able to tolerate this well. Recheck of her pulse was 100. IMPRESSION: Tonsillitis, probably strep. The patient is discharged home in stable condition. She is given discharge instructions on tonsillitis and strep infection. She is given a prescription for Pen VK as she did not want the shot, so we gave her 500 t.i.d. x 10 days and ibuprofen. I asked her to follow up with her primary doctor in the next one week or sooner if she is feeling worse. The patient is supervised by the on-site ED staff physician. kda Dictated: 07/24/2002 12:40:51 ALEXANDER Wisdom Transcribed: 07/24/2002 13:26:41 Dictating for on-site staff physician Doc #: [id number] cc: Page 1 Patient Name: AZUL MCCLELLAN Visit Date: 07/24/2002 EMERGENCY MEDICINE NOTE CONFIDENTIAL MEDICAL RECORD [address] [address] Page 1 Patient: AZUL MCCLELLAN Location: [facility]: Date of : 1980 Visit Date: 07/24/2002 EMERGENCY MEDICINE NOTE documented in this encounter Plan of Treatment Not on filedocumented as of this encounter Visit Diagnoses Diagnosis Acute tonsillitis Acute pharyngitis documented in this encounter Care Teams Medical Record Librarians Teacher Relationship Specialty Start Date End Date Judith Almeida MD PCP - General 11/28/01 07/15/04 [address] [place] [address] documented as of this encounter
--- OUTSIDE RECORDS SUMMARY | 2022-01-07 13:12 | XMS_ITS | Encounter Summary ---
:1980 Author Organization [employer] Address [address] [place] [address] Care Team Providers Name Role Phone Judith Almeida MD Primary Care Provider Reason for Visit Reason Comments ABDOMINAL PAIN Encounter Details Date Type Department Care Team Description 03/08/2002 Telephone Careline Anitha Marr, ABDOMINAL PAIN [address] [place], [place] [address] [facility] [phone] [facility] [address] Social History Tobacco Use Types Packs/Day Years Used Date Smoking Tobacco: Never Assessed Sex Assigned at Date Recorded Not on file documented as of this encounter Nursing Notes 03/08/2002 11:59 PM MACHINE SET UP TECHNICIAN >> PEG A JENSEN MonMar 08, 2002 11:49 PM >> CALL RECEIVED. Contact: last menstrual period 1 wk ago light. had a positive PG test. on tylenol #3. pain left side of abd and left leg and hip pain. had an US yesterday in [facility]. could not see anything on US yet. g r 2/ has a lot of back pain same as when seen in ER. the tylenol #3 has not helped but has caused nausea. has no shoulder pain.no UTI sx noted. has a menses like vaginal flow on and and off. asking to have something stronger for the pain in abdomen. Plan: to [facility] documented in this encounter Plan of Treatment Not on filedocumented as of this encounter Visit Diagnoses Not on filedocumented in this encounter Care Teams Filter Cleaner Relationship Specialty Start Date End Date Judith Almeida MD PCP - General 11/28/01 07/15/04 [address] [place] [address] documented as of this encounter
--- OUTSIDE RECORDS SUMMARY | 2022-01-07 13:12 | XMS_ITS | Encounter Summary ---
:1980 Author Organization [employer] Address [address] [place] [address] Care Team Providers Name Role Phone Judith Almeida MD Primary Care Provider Encounter Details Date Type Department Care Team Description 03/10/2002 Office Visit REDO MARBELLA DEFAULT Unassigned, SPON ABO RT [id number]-[id number]; Provider ABDOMINAL PAIN LLQ [address] [place] [address] Social History Tobacco Use Types Packs/Day Years Used Date Smoking Tobacco: Never Assessed Sex Assigned at Date Recorded Not on file documented as of this encounter ED Notes Carole Pittman - 03/10/2002 12:00 AM CSTLog Number: [id number] HISTORY OF PRESENT ILLNESS: This is a 21-year-old female who presents for reevaluation of a threatened , after being seen here on 03/07/2002. The patient was asked to return for repeat serum hCG today. She complains that she started having vagina bleeding on 03/06/2002 and on 03/07/2002 had developed left lower quadrant abdominal pain, which radiated to her back and down her leg. She continued to have some bleeding that day. She had already had a menstrual period this month, which ended about a week prior. She also believes she had a spontaneous 4 months ago when she had some similar symptoms. She is 3, para 1-0-1-1. She continued to have pain on the evening of 03/07/2002, but since then her pain has been minimal to none. Yesterday, she stated she had been taking some Tylenol #3 that she was prescribed, along with some over the counter aspirin around the clock until this morning, so she is uncertain whether that would have hidden any pain she would have been having. However today, she has not had any pain medication and has been having no pain. Since yesterday, her bleeding has stopped, but today she is having a small amount of dark bleeding, for which she has not had to change a pad. She has not had any nausea, vomiting, diarrhea, constipation or fever. She had complained of some vaginal itching on her prior visit and was diagnosed with bacterial vaginosis. GC and Chlamydia cultures were sent and are still pending today. She denies any history of sexually transmitted diseases. The patient stated she took a large dose of Tylenol and a Tylenol level was evaluated and was nontoxic. PAST MEDICAL HISTORY: Please see history of the present illness. Also includes scoliosis. REVIEW OF SYSTEMS, SOCIAL HISTORY AND FAMILY HISTORY: Refer to the emergency room physician danielle. MEDICATIONS: Tylenol #3, aspirin and Tylenol PM. ALLERGIES: NO KNOWN DRUG ALLERGIES. PHYSICAL EXAMINATION: VITAL SIGNS: Blood pressure 121/66. Pulse 103. Respirations 16. Temperature 97.0. Oxygen saturation of 100% room air. GENERAL: Well nourished, well developed. Alert and oriented x 3. In no acute distress. HEENT: Normocephalic and atraumatic. NECK: Supple. PULMONARY: Clear breath sounds. Clear to auscultation bilaterally. Respirations are even and unlabored. CARDIOVASCULAR: Regular rate and rhythm. S1 and S2, without murmurs, rubs or gallops. GASTROINTESTINAL: Abdomen soft, non-tender and non-distended. Bowel sounds are audible x 4 quadrants. No hepatosplenomegaly, masses or bruits. PELVIC: Normal appearing external female genitalia. Vaginal vault was pink with a small amount of brownish-tannish discharge. No active bleeding noted. Cervical os was multiparous and closed. No cervical motion tenderness, uterine or adnexal tenderness or masses appreciated. EMERGENCY ROOM COURSE: The patient's repeat serum hCG was 220. I spoke with Dr. Bai of [facility] concerning follow up of the patient. ASSESSMENT: Spontaneous . PLAN: The patient was given EPIC instructions for miscarriage. She was instructed to make a follow up appointment with [facility] and was given their phone number for first available this week. She was also given the number for the [facility] clinic to try and make an appointment there if she is unable to be seen at the [facility]. She was told she would need to return if her pain was uncontrolled and she has vaginal bleeding of more than 1 pad per hour. DISPOSITION: Discharged to home in stable condition. lmn Dictated: 03/10/2002 15:29:25 Melvi Tadeo PA-C Transcribed: 03/11/2002 09:43:17 Patient seen with Evan Lucero MD Doc #: [id number] Page 2 Patient Name: AZUL MCCLELLAN Visit Date: 03/10/2002 EMERGENCY MEDICINE NOTE CONFIDENTIAL MEDICAL RECORD [address] [address] Page 1 Patient: AZUL MCCLELLAN Location: [facility]: Date of : 1980 Visit Date: 03/10/2002 EMERGENCY MEDICINE NOTE ENTATION ENGINEER documented in this encounter Plan of Treatment Not on filedocumented as of this encounter Visit Diagnoses Diagnosis Unspecified spontaneous without mention of complication Abdominal pain, left lower quadrant documented in this encounter Care Teams Refuse Laborer Relationship Specialty Start Date End Date Judith Almeida MD PCP - General 11/28/01 07/15/04 [address] [place] [address] documented as of this encounter
--- OUTSIDE RECORDS SUMMARY | 2022-01-07 13:12 | XMS_ITS | Encounter Summary ---
:1980 Author Organization [facility] Address [address] [place] [address] Care Team Providers Name Role Phone Judith Almeida MD Primary Care Provider Encounter Details Date Type Department Care Team Description 03/07/2002 Orders Only [facility] Maxx Mccarty MD Laboratory [address] [place] [address] [place] [address] [phone] Social History Tobacco Use Types Packs/Day Years Used Date Smoking Tobacco: Never Assessed Sex Assigned at Date Recorded Not on file documented as of this encounter Plan of Treatment Not on filedocumented as of this encounter Procedures Procedure Name Priority Date/Time Associated Diagnosis Comme nts HCG, QUANTITATIVE, Waiting 03/07/2002 9:35 PM Res ults for this SERUM WILDLIFE BIOLOGY TECHNICIAN procedure ar e in the results section. documented in this encounter Results HCG, QUANT., SERUM (03/07/2002 9:35 PM WILDLIFE BIOLOGY TECHNICIAN) P athologist Signature HCG, Quant. 453 mIU/ml REGIONS Preg. Specimen Anatomical Collection Method Collection Time Receive d Time (Source) Location / / Volume Laterality 03/07/2002 9:35 PM 3 9:43 WILDLIFE BIOLOGY TECHNICIAN PM WILDLIFE BIOLOGY TECHNICIAN Maxx Mccarty MD LAB_1 Performing Organization Address City/State/ZIP Code Phon e Number [address] [address] [place], [place] [phone] documented in this encounter Visit Diagnoses Not on filedocumented in this encounter Care Teams Physics Faculty Member Relationship Specialty Start Date End Date Judith Almeida MD PCP - General 11/28/01 07/15/04 [address] [place] [address] documented as of this encounter
--- OUTSIDE RECORDS SUMMARY | 2022-01-07 13:12 | XMS_ITS | Encounter Summary ---
:1980 Author Organization [facility] Address [address] [place] [address] Care Team Providers Name Role Phone Judith Almeida MD Primary Care Provider Encounter Details Date Type Department Care Team Description 03/07/2002 Orders Only [facility] Maxx Mccarty MD Laboratory [address] [address] [place] [address] [phone] Social History Tobacco Use Types Packs/Day Years Used Date Smoking Tobacco: Never Assessed Sex Assigned at Date Recorded Not on file documented as of this encounter Plan of Treatment Not on filedocumented as of this encounter Procedures Procedure Name Priority Date/Time Associated Diagnosis Comme nts GC (N. Waiting 03/07/2002 8:35 PM Results f or this GONORRHOEAE)(14 ACCOUNTS PAYABLE SPECIALIST procedure ar e in YEARS AND OLDER) the results section. CHLAMYDIA (16 YEARS Routine 03/07/2002 8:35 PM Re sults for this AND OLDER) ACCOUNTS PAYABLE SPECIALIST procedure are i n the results section. documented in this encounter Results GC (N. GONORRHOEAE) - 1 SWAB (03/07/2002 8:35 PM ACCOUNTS PAYABLE SPECIALIST) Component Value Ref Test Analysis Performed At [facility] Range Method Time Signature GC (N. Negative NEG REGIONS gonorrhoeae) Test Performed by PCR Assay Performed at [facility] Laboratory Source CERVIX REGIONS Specimen Anatomical Collection Method Collection Time Receive d Time (Source) Location / / Volume Laterality 03/07/2002 8:35 PM 3 9:23 ACCOUNTS PAYABLE SPECIALIST PM ACCOUNTS PAYABLE SPECIALIST Maxx Mccarty MD LAB_1 Performing Organization Address [facility] Phon e Number [address] [address] [place], [place] [phone] CHLAMYDIA - 1 SWAB (03/07/2002 8:35 PM ACCOUNTS PAYABLE SPECIALIST) [facility] Method Time Signature Chlamydia Negative NEG REGIONS Test Performed by PCR Assay Performed at [facility] Laboratory Source CERVIX REGIONS Specimen Anatomical Collection Method Collection Time Receive d Time (Source) Location / / Volume Laterality 03/07/2002 8:35 PM 3 9:23 ACCOUNTS PAYABLE SPECIALIST PM ACCOUNTS PAYABLE SPECIALIST Maxx Mccarty MD LAB_1 Performing Organization Address [facility] Phon e Number [address] [address] [place], [place] [phone] documented in this encounter Visit Diagnoses Not on filedocumented in this encounter Care Teams Seismograph Chief Relationship Specialty Start Date End Date Judith Almeida MD PCP - General 11/28/01 07/15/04 [address] [place] [address] documented as of this encounter
--- OUTSIDE RECORDS SUMMARY | 2022-01-07 13:12 | XMS_ITS | Encounter Summary ---
:1980 Author Organization [facility] Address [address] [place] [address] Care Team Providers Name Role Phone Judith Almeida MD Primary Care Provider Encounter Details Date Type Department Care Team Description 03/07/2002 Orders Only [facility] Maxx Mccarty MD Laboratory [address] [facility] [address] [place] [address] [place] [address] [phone] Social History Tobacco Use Types Packs/Day Years Used Date Smoking Tobacco: Never Assessed Sex Assigned at Date Recorded Not on file documented as of this encounter Plan of Treatment Not on filedocumented as of this encounter Procedures Procedure Name Priority Date/Time Associated Comments Diagnosis URINE MICROSCOPIC Routine 03/07/2002 8:35 PM Resu lts for this CHEMICAL ENGINEER procedure are i n the results section. UA CONDITIONAL UC Waiting 03/07/2002 8:35 PM Resu lts for this CHEMICAL ENGINEER procedure are i n the results section. TEST Waiting 03/07/2002 8:35 PM Results for this (URINE) CHEMICAL ENGINEER procedure are i n the results section. documented in this encounter Results (ABNORMAL) URINE MICROSCOPIC (03/07/2002 8:35 PM CHEMICAL ENGINEER) P athologist Signature RBC'S 5 (H) 0 - 3 /hpf REGIONS WBC'S 0 0 - 5 /hpf REGIONS Epith, Squamous Few /hpf REGIONS Specimen Anatomical Collection Method Collection Time Receive d Time (Source) Location / / Volume Laterality 03/07/2002 8:35 PM 3 8:40 CHEMICAL ENGINEER PM CHEMICAL ENGINEER Maxx Mccarty MD LAB_1 Performing Organization Address [facility] Phon e Number [address] [address] [place], [place] [phone] (ABNORMAL) UA CONDITIONAL UC (03/07/2002 8:35 PM CHEMICAL ENGINEER) Patholo gist Method Time Signature Conditional UC Not REGIONS Culture Indicated Urine Comments Microscopic REGIONS exam indicated Urine Color Yellow REGIONS Urine Clarity Clear REGIONS Specific 1.017 1.005 - REGIONS [place] 1.030 pH, Urine 6.0 4.5 - 8.0 REGIONS Protein, Urine Neg mg/dl REGIONS Qual Glucose, Urine Neg mg/dl REGIONS Qual Ketones, Urine Neg mg/dl REGIONS Urobil, Urine 0.2 0.2 - 1.0 REGIONS Qual EU/dl Bilirubin, Neg REGIONS Urine Blood, Urine Lrg (A) REGIONS Nitrite, Urine Neg REGIONS Leukocyte Est., Neg REGIONS Ur Specimen Anatomical Collection Method Collection Time Receive d Time (Source) Location / / Volume Laterality 03/07/2002 8:35 PM 3 8:40 CHEMICAL ENGINEER PM CHEMICAL ENGINEER Maxx Mccarty MD LAB_1 Performing Organization Address [facility] Phon e Number [address] [address] [place], [place] [phone] TEST (URINE) (03/07/2002 8:35 PM CHEMICAL ENGINEER) Analysis Performed At Patho logist Time Signature HCG, Urine Positive REGIONS Greater than 25 mIU Specimen Anatomical Collection Method Collection Time Receive d Time (Source) Location / / Volume Laterality 03/07/2002 8:35 PM 3 8:40 CHEMICAL ENGINEER PM CHEMICAL ENGINEER Maxx Mccarty MD LAB_1 Performing Organization Address [facility] Phon e Number [address] [address] [place], [place] [phone] documented in this encounter Visit Diagnoses Not on filedocumented in this encounter Care Teams Polishing Wheel Setter Relationship Specialty Start Date End Date Judith Almeida MD PCP - General 11/28/01 07/15/04 [address] [place] [address] documented as of this encounter
--- OUTSIDE RECORDS SUMMARY | 2022-01-07 13:12 | XMS_ITS | Encounter Summary ---
:1980 Author Organization [facility] Address [address] [place] [address] Care Team Providers Name Role Phone Judith Almeida MD Primary Care Provider Encounter Details Date Type Department Care Team Description 03/07/2002 Orders Only [facility] Maxx Mccarty MD Laboratory [address] [place] [address] [place] [id number] [phone] Social History Tobacco Use Types Packs/Day Years Used Date Smoking Tobacco: Never Assessed Sex Assigned at Date Recorded Not on file documented as of this encounter Plan of Treatment Not on filedocumented as of this encounter Procedures Procedure Name Priority Date/Time Associated Diagnosis Comme nts RH(D) TYPING Waiting 03/07/2002 9:35 PM Results f or this BATCH AND FURNACE OPERATOR procedure are i n the results section . documented in this encounter Results RH(D) TYPING (03/07/2002 9:35 PM BATCH AND FURNACE OPERATOR) P athologist Signature RH(D) Typing POSITIVE REGIONS Specimen Anatomical Collection Method Collection Time Receive d Time (Source) Location / / Volume Laterality 03/07/2002 9:35 PM 3 9:43 BATCH AND FURNACE OPERATOR PM BATCH AND FURNACE OPERATOR Maxx Mccarty MD LAB_1 Performing Organization Address City/State/ZIP Code Phon e Number [address] [address] [place], [place] [phone] documented in this encounter Visit Diagnoses Not on filedocumented in this encounter Care Teams Spray Mixer Relationship Specialty Start Date End Date Judith Almeida MD PCP - General 11/28/01 07/15/04 [address] [place] [address] documented as of this encounter
--- OUTSIDE RECORDS SUMMARY | 2022-01-07 13:12 | XMS_ITS | Encounter Summary ---
:1980 Author Organization [facility] Address [address] [place] [address] Care Team Providers Name Role Phone Judith Almeida MD Primary Care Provider Encounter Details Date Type Department Care Team Description 11/28/2001 Office Visit [facility]ina M D ACUTE PHARYNGITIS(SORE THROAT); [facility] [address] [place] [address] Social History Tobacco Use Types Packs/Day Years Used Date Smoking Tobacco: Never Assessed Sex Assigned at Date Recorded Not on file documented as of this encounter Plan of Treatment Not on filedocumented as of this encounter Visit Diagnoses Diagnosis Acute pharyngitis Other dyspnea and respiratory abnormalit y documented in this encounter Care Teams Spinning Lathe Operator Relationship Specialty Start Date End Date Judith Almeida MD PCP - General 11/28/01 07/15/04 [address] [place] [address] documented as of this encounter
--- OUTSIDE RECORDS SUMMARY | 2022-01-07 13:12 | XMS_ITS | Encounter Summary ---
:1980 Author Organization [facility] Address [address] [place] [address] Care Team Providers Name Role Phone Judith Almeida MD Primary Care Provider Encounter Details Date Type Department Care Team Description 03/07/2002 Orders Only [facility] Maxx Mccarty MD Laboratory [address] [place] [address] [place] [id number] [phone] Social History Tobacco Use Types Packs/Day Years Used Date Smoking Tobacco: Never Assessed Sex Assigned at Date Recorded Not on file documented as of this encounter Plan of Treatment Not on filedocumented as of this encounter Procedures Procedure Name Priority Date/Time Associated Diagnosis Comme nts ACETAMINOPHEN Waiting 03/07/2002 9:35 PM Results for this WEBSITE/BLOG EDITOR procedure are i n the results section . documented in this encounter Results (ABNORMAL) ACETAMINOPHEN (03/07/2002 9:35 PM WEBSITE/BLOG EDITOR) P athologist Signature Acetaminophen 4 (L) 10 - 20 REGIONS mcg/ml Specimen Anatomical Collection Method Collection Time Receive d Time (Source) Location / / Volume Laterality 03/07/2002 9:35 PM 3 9:43 WEBSITE/BLOG EDITOR PM WEBSITE/BLOG EDITOR Maxx Mccarty MD LAB_1 Performing Organization Address City/State/ZIP Code Phon e Number [address] [id number] [place], [place] [phone] documented in this encounter Visit Diagnoses Not on filedocumented in this encounter Care Teams Showroom Executive Director Relationship Specialty Start Date End Date Judith Almeida MD PCP - General 11/28/01 07/15/04 [address] [place] [address] documented as of this encounter
--- OUTSIDE RECORDS SUMMARY | 2022-01-07 13:12 | XMS_ITS | Encounter Summary ---
:1980 Author Organization [facility] Address [address] [place] [address] Care Team Providers Name Role Phone Non Pn, Clinician Primary Care Provider Unavailable Encounter Details Date Type Department Care Team Description 03/13/2001 Orders Only Rigo Camara MD [address] [place], [place] [address] [place] [address] (Wo rk) Social History Tobacco Use Types Packs/Day Years Used Date Smoking Tobacco: Never Assessed Sex Assigned at Date Recorded Not on file documented as of this encounter Plan of Treatment Not on filedocumented as of this encounter Procedures Procedure Name Priority Date/Time Associated Diagnosis Comme nts URINE CULTURE Routine 03/13/2001 5:38 PM Results for this BILLPOSTING SUPERVISOR procedure are i n the results section . documented in this encounter Results URINE CULTURE (03/13/2001 5:38 PM BILLPOSTING SUPERVISOR) [facility] Method Time Signature Specimen Urine REGIONS Description Straight Cath/[place] Special None REGIONS Requests Culture No Growth REGIONS After 1 Day Report Status Final REGIONS Report Status [id number] REGIONS Specimen Anatomical Collection Method Collection Time Receive d Time (Source) Location / / Volume Laterality 03/13/2001 5:38 PM 2 2:00 BILLPOSTING SUPERVISOR AM BILLPOSTING SUPERVISOR Rigo Abreu MD LAB_1 Performing Organization Address City/State/ZIP Code Phon e Number [address] [address] [place], [place] [phone] documented in this encounter Visit Diagnoses Not on filedocumented in this encounter Care Teams Outside Plant Engineer Relationship Specialty Start Date End Date Non Pn, Clinician, PCP - General 06/05/14 10/14/15 [place] [address] documented as of this encounter
--- OUTSIDE RECORDS SUMMARY | 2022-01-07 13:12 | XMS_ITS | Encounter Summary ---
:1980 Author Organization [employer] Address [address] [place] [address] Care Team Providers Name Role Phone Judith Almeida MD Primary Care Provider Encounter Details Date Type Department Care Team Description 11/28/2001 Office Visit [facility] Judith Baldwni MD [facility] [address] [place] [address] (Wo rk) Social History Tobacco Use Types Packs/Day Years Used Date Smoking Tobacco: Never Assessed Sex Assigned at Date Recorded Not on file documented as of this encounter Progress Notes Judith Almeida - 11/28/2001 12:00 AM CDTSubjective: The patient is here today with complaint of sore throat for two days, muscle aches, and dryness in the mouth. She is a new patient for our clinic and wants to establish care. She does not take any medications on a regular basis. She does not have any allergies. She is only with her boyfriend and has one child who is almost 3 years old. She works in [employer]. She was also concerned about feeling of unsatisfactory breathing during the last one to two months. She describes this sensation as inability to make deep breaths. This happens once a day lasting for about 20 or 30 minutes, sometimes associated with a lump or foreign body in her throat, not related to any physical activity or exercises, not related to any perfumes or allergies. Sometimes related to emotional stress. The patient does have a past medical history significant for scoliosis and some reactive airway disease. This gave her problems when she was a teenager. Review of systems also revealed some symptoms of some more frequent urination over the last one to two months. She was tested for UTI at the Emergency Department and results were negative. Otherwise review of systems is noncontributory. Her son has reactive airway disease. Objective: Vital signs stable, per the chart. Afebrile. HEENT: Tympanic membranes pearly carson. Oropharynx slightly erythematous. Nose dry, no postnasal drip, clear nasal discharge. Slightly erythematous nasal mucosa. No cervical lymphadenopathy. Lungs: Clear to auscultation, no wheezing, rales, crackles. Good air entry. Heart: Regular rate and rhythm, no murmurs. Assessment/Plan: 1. Acute pharyngitis. Rapid strep test was negative. We informed the patient about results of cultures in case the culture was positive and required further treatment. We recommended using Tylenol or ibuprofen to relieve symptoms and gave patient a slip that she was seen in our office today. 2. Dyspnea. We recommended the patient use a diary and record symptoms of her dyspnea and factors and triggers, and the patient will be seen in our office for a physical exam and Pap smear, and we will follow this issue. The patient was precepted with Dr. Martin Luong. [facility] Dictated: 11/28/2001 12:25:00 Transcribed: 11/29/2001 11:13:39 Doc #: [id number] PATIENT NAME: AZUL MCCLELLAN VISIT DATE: 11/28/2001 AGE: 21Y [facility] Provider Signature Page 2 Confidential Medical Record [facility] [address] [place] [address] Page Patient: AZUL MCCLELLAN Visit Date: 11/28/2001 Judith Almeida MD Date of : 1980 VISIT DATE: 11/28/2001 AGE: 21Y [facility] Provider Signature documented in this encounter Plan of Treatment Not on filedocumented as of this encounter Visit Diagnoses Not on filedocumented in this encounter Care Teams Education And Training Coordinator Relationship Specialty Start Date End Date Judith Almeida MD PCP - General 11/28/01 07/15/04 [address] [place] [address] documented as of this encounter
--- OUTSIDE RECORDS SUMMARY | 2022-01-07 13:12 | XMS_ITS | Encounter Summary ---
:1980 Author Organization [facility] Address [address] [place] [address] Care Team Providers Name Role Phone Judith Almeida MD Primary Care Provider Encounter Details Date Type Department Care Team Description 11/28/2001 Orders Only Kaylin Almeida MD [address] [employer] [address] (Wo rk) Social History Tobacco Use Types Packs/Day Years Used Date Smoking Tobacco: Never Assessed Sex Assigned at Date Recorded Not on file documented as of this encounter Plan of Treatment Not on filedocumented as of this encounter Procedures Procedure Name Priority Date/Time Associated Diagnosis Comme nts BETA STREP FOLLOWUP Routine 11/28/2001 9:35 AM Re sults for this CDT procedure are i n the results section. documented in this encounter Results BETA STREP FOLLOWUP (11/28/2001 9:35 AM CDT) Component Value Ref Test Analysis Performed At [facility] Range Method Time Signature Specimen Throat Swab REGIONS Description Special None REGIONS Requests Culture No Beta REGIONS Hemolytic Streptococcus Isolated Report Status Final REGIONS Report Status [id number] REGIONS Specimen Anatomical Collection Method Collection Time Receive d Time (Source) Location / / Volume Laterality 11/28/2001 9:35 AM 2 CDT 11:52 AM CDT Judith Almeida MD LAB_1 Performing Organization Address City/State/ZIP Code Phon e Number [address] [address] [place], [place] [phone] documented in this encounter Visit Diagnoses Not on filedocumented in this encounter Care Teams Turf And Grounds Supervisor Relationship Specialty Start Date End Date Judith Almeida MD PCP - General 11/28/01 07/15/04 [address] [place] [address] documented as of this encounter
--- OUTSIDE RECORDS SUMMARY | 2022-01-07 13:12 | XMS_ITS | Encounter Summary ---
:1980 Author Organization [facility] Address [address] [place] [address] Care Team Providers Name Role Phone Judith Almeida MD Primary Care Provider Encounter Details Date Type Department Care Team Description 11/28/2001 Orders Only Kaylin Almeida MD [address] [facility] [address] (Wo rk) Social History Tobacco Use Types Packs/Day Years Used Date Smoking Tobacco: Never Assessed Sex Assigned at Date Recorded Not on file documented as of this encounter Plan of Treatment Not on filedocumented as of this encounter Procedures Procedure Name Priority Date/Time Associated Diagnosis Comme nts RAPID STREP THROAT Waiting 11/28/2001 9:28 AM Res ults for this CDT procedure are i n the results section. documented in this encounter Results RAPID STREP THROAT (11/28/2001 9:28 AM CDT) [facility] Method Time Signature Rapid Strep, Direct test REGIONS Throat negative, culture sent Specimen Anatomical Collection Method Collection Time Receive d Time (Source) Location / / Volume Laterality 11/28/2001 9:28 AM 2 9:29 CDT AM CDT Judith Almeida MD LAB_1 Performing Organization Address City/State/ZIP Code Phon e Number [address] [id number] [place], [place] [phone] documented in this encounter Visit Diagnoses Not on filedocumented in this encounter Care Teams Golf Club Head Inspector Relationship Specialty Start Date End Date Judith Almeida MD PCP - General 11/28/01 07/15/04 [address] [place] [address] documented as of this encounter
--- OUTSIDE RECORDS SUMMARY | 2022-01-07 13:12 | XMS_ITS | Encounter Summary ---
:1980 Author Organization [facility] Address [address] [place] [address] Care Team Providers Name Role Phone Non Pn, Clinician MD Primary Care Provider Unavailable Encounter Details Date Type Department Care Team Description 03/13/2001 Orders Only Rigo Camara MD [address] [place], [place] [address] [place] [address] [phone] (Wo rk) Social History Tobacco Use Types Packs/Day Years Used Date Smoking Tobacco: Never Assessed Sex Assigned at Date Recorded Not on file documented as of this encounter Plan of Treatment Not on filedocumented as of this encounter Procedures Procedure Name Priority Date/Time Associated Diagnosis Comme nts GC (N. Waiting 03/13/2001 5:38 PM Results f or this GONORRHOEAE)(16 MOLECULAR TECHNOLOGIST procedure ar e in YEARS AND OLDER) the results section. CHLAMYDIA (16 YEARS Waiting 03/13/2001 5:38 PM Re sults for this AND OLDER) MOLECULAR TECHNOLOGIST procedure are i n the results section. documented in this encounter Results GC (N. GONORRHOEAE) - 1 SWAB (03/13/2001 5:38 PM MOLECULAR TECHNOLOGIST) Component Value Ref Test Analysis Performed At [facility] Range Method Time Signature GC (N. Negative NEG REGIONS gonorrhoeae) Test Performed by PCR Assay Performed at [facility] Central Laboratory Source CERVIX REGIONS Specimen Anatomical Collection Method Collection Time Receive d Time (Source) Location / / Volume Laterality 03/13/2001 5:38 PM 2 6:07 MOLECULAR TECHNOLOGIST PM MOLECULAR TECHNOLOGIST Rigo Abreu MD LAB_1 Performing Organization Address City/State/ZIP Code Phon e Number [address] [address] [place], [place] [phone] CHLAMYDIA - 1 SWAB (03/13/2001 5:38 PM MOLECULAR TECHNOLOGIST) [facility] Method Time Signature Chlamydia Negative NEG REGIONS Test Performed by PCR Assay Performed at [facility] Laboratory Source CERVIX REGIONS Specimen Anatomical Collection Method Collection Time Receive d Time (Source) Location / / Volume Laterality 03/13/2001 5:38 PM 2 6:07 MOLECULAR TECHNOLOGIST PM MOLECULAR TECHNOLOGIST Rigo Abreu MD LAB_1 Performing Organization Address [facility] Phon e Number [address] [address] [place], [place] [phone] documented in this encounter Visit Diagnoses Not on filedocumented in this encounter Care Teams Wreath Machine Operator Relationship Specialty Start Date End Date Non Pn, Clinician, PCP - General 06/05/14 10/14/15 [place] [address] documented as of this encounter
--- OUTSIDE RECORDS SUMMARY | 2022-01-07 13:12 | XMS_ITS | Encounter Summary ---
:1980 Author Organization [facility] Address [address] [place] [address] Care Team Providers Name Role Phone Judith Almeida MD Primary Care Provider Encounter Details Date Type Department Care Team Description 03/07/2002 Office Visit Maxx Bryant, AB DOMINAL PAIN LUQ; [facility]; [address] [facility] EARLY PREG-ANTEPART; [place], [place] PREG STATE, I NCIDENTAL; [address] ADV EFF [facility] NEC [phone] (Wo rk) Social History Tobacco Use Types Packs/Day Years Used Date Smoking Tobacco: Never Assessed Sex Assigned at Date Recorded Not on file documented as of this encounter ED Notes Quinn Gallardo - 03/07/2002 12:00 AM CSTLog Number: [id number] COMPLAINT: Left lower quadrant pain. HISTORY OF PRESENT ILLNESS: The patient is a 21-year-old female who presents complaining of left lower quadrant and flank pain that began this morning. The patient states that she began experiencing vaginal bleeding last night. She states she finished her period 3 days ago and it has now started again last night. No tissue passed or clots noted. The patient states that her left lower quadrant pain began then upon awaking this morning. It radiates into her back and down her left leg. She is not on control and could possibly be . She thinks she may have a yeast infection because of frequent itching. She states that she just had a bout with the crabs and she treated herself by shaving off all of her pubic hair which relieved her symptoms. She denies nausea, vomiting, diarrhea, fever or chills. The patient mistakenly took seven 500 mg Tylenol tablets at 11 a.m. this morning. She states that this was in no way a suicide attempt, it was just a mistake. She thought she was taking 700 mg. PAST MEDICAL HISTORY: Scoliosis and one current , currently a 5-year-old child. MEDICATIONS: Tylenol. ALLERGIES: NO KNOWN DRUG ALLERGIES. REVIEW OF SYSTEMS, SOCIAL HISTORY, FAMILY HISTORY: Please see the emergency room shingle PHYSICAL EXAMINATION VITAL SIGNS: Blood pressure is 123/??, pulse is 92, respirations 16, temperature is 99.0, SaO2 is 98%. Dendron coma scale is 15. GENERAL: The patient is alert and oriented x 3. She does not appear to be in any acute distress. HEENT: PERRL, EOMI. No scleral icterus. Tympanic membranes are clear bilaterally. Oropharynx is clear. Anterior nose and nasal pharynx is clear. NECK: Full range of motion, no lymphadenopathy. No nuchal rigidity. LUNGS: Clear to auscultation bilaterally. No wheezes, no crackles. HEART: Regular rate and rhythm, no murmurs, rubs or gallops. ABDOMEN: Soft, nontender except for deep, deep palpation in the left lower quadrant. No masses. PELVIC: No cervical motion tenderness. No cervical discharge noted. No adnexal tenderness bilaterally. Cultures are pending. EXTREMITIES: Moving all extremities, no clubbing, cyanosis or edema. ANCILLARY STUDIES: Acetaminophen level was 4 mcg/ml. Urinalysis was negative except for a large amount of blood and the microscopic showed no white cells, some red blood cells. Urine test was positive. Rh type was positive. Wet prep showed clue cells present but no Trichomonas and no yeast. HCG quant was 453 and pelvic ultrasound showed clot or polyp in the endometrial cavity, otherwise unremarkable study. No intrauterine seen. Gonorrhea and Chlamydia cultures are pending. EMERGENCY DEPARTMENT COURSE: The patient was seen and examined by myself and Dr. Mccarty. She received 800 mg of ibuprofen while in the department for pain. Her abdominal exam was very benign but with her positive urine and active vaginal bleeding, we thought it would be necessary to make sure that she was Rh positive or administer a Rhogam. She was Rh positive. We also thought it was important to rule out ectopic . The ultrasound showed no ectopic but it could be that it is just too early at this point. We will plan on following her quant level and having her come back here to the emergency department in 2 days which is a Monday instead of her clinic because she does not have health insurance and she would have to go find a clinic on a Monday. Instead we will have the patient return to the emergency department on Monday to have a repeat of her quant and also to see if her GC and Chlamydia cultures will be positive or not. The source of her abdominal pain is not known at this time, however, she said the pain dissipated with 800 mg of ibuprofen. We will have her follow up in 3 days and use Tylenol with codeine for the pain until that time. FINAL DIAGNOSES: 1. Nonspecific abdominal pain. 2. . DISPOSITION: The patient was discharged home in stable condition. She was given a prescription for Tylenol #3, 20 pills for the abdominal pain. She was given discharge instructions for , abdominal pain and bleeding during . She was told to follow up here in the emergency department in 3 days, Monday, to have a repeat HCG quant. [facility] Dictated: 03/08/2002 00:14:37 Mark Covington MD Transcribed: 03/08/2002 09:50:55 Patient seen with Maxx Mccarty MD Doc #: [id number] cc: Judith Almeida MD Primary Page 2 Patient Name: AZUL MCCLELLAN Visit Date: 03/07/2002 EMERGENCY MEDICINE NOTE CONFIDENTIAL MEDICAL RECORD [address] [address] Page 1 Patient: AZUL MCCLELLAN Location: ER HPN: Date of : 1980 Visit Date: 03/07/2002 EMERGENCY MEDICINE NOTE ORMANCE IMPROVEMENT MANAGER documented in this encounter Plan of Treatment Not on filedocumented as of this encounter Procedures Procedure Name Priority Date/Time Associated Comments Diagnosis US PELVIS-COMPLETE Routine 03/07/2002 9:50 PM Res ults for this PERFORMANCE IMPROVEMENT MANAGER procedure are i n the results section. US PELVIC, IVT Routine 03/07/2002 9:50 PM Results for this ADDITIONAL PERFORMANCE IMPROVEMENT MANAGER procedure are i n the results section. documented in this encounter Results US PELVIC- IVT ADDITIONAL (03/07/2002 9:50 PM PERFORMANCE IMPROVEMENT MANAGER) Component Value Ref Test Analysis Performed Pathologis t Range Method Time At Signature US PELVIC, ULTRASOUND - PELVIS 03/07/02: [facility] IVT CLINICAL DATA: Abdomen pain, positive test, RADIOLOGY ADDITIONAL andbleeding. Examination of the patient's pelvis was performed transabdominallyand endovaginally. It demonstrates fluid and/or tissue in the endometrial cavity. This may represent clot as no flow isdemonstrated on Doppler. There is no evidence of an intrauterinesac. Beta HCGs are not known at the time of this dictation. Multiple small physiologic follicles are seen in both ovaries.Very small amount of free fluid is seen in the cul-de-sac. No other findings are noted. IMPRESSION: 1. Tissue and/or clot in the endometrial cavity as above.2. No evidence of IUP. 3. Otherwise unremarkable exam. Anatomical Region Laterality Modality Other Specimen (Source) Anatomical Collection Method Collection Time Re ceived Time Location / / Volume Laterality 03/07/2002 9:50 PM PERFORMANCE IMPROVEMENT MANAGER Maxx Mccarty MD RAD US/RH US PELVIS-COMPLETE (03/07/2002 9:50 PM PERFORMANCE IMPROVEMENT MANAGER) Component Value Ref Test Analysis Performed Pathologis t Range Method Time At Signature US PELVIC ULTRASOUND - PELVIS 03/07/02: [facility] COMPLETE CLINICAL DATA: Abdomen pain, positive test, RADIOLOGY andbleeding. Examination of the patient's pelvis was performed transabdominallyand endovaginally. It demonstrates fluid and/or tissue in the endometrial cavity. This may represent clot as no flow isdemonstrated on Doppler. There is no evidence of an intrauterinesac. Beta HCGs are not known at the time of this dictation. Multiple small physiologic follicles are seen in both ovaries.Very small amount of free fluid is seen in the cul-de-sac. No other findings are noted. IMPRESSION: 1. Tissue and/or clot in the endometrial cavity as above.2. No evidence of IUP. 3. Otherwise unremarkable exam. Anatomical Region Laterality Modality Other Specimen (Source) Anatomical Collection Method Collection Time Re ceived Time Location / / Volume Laterality 03/07/2002 9:50 PM PERFORMANCE IMPROVEMENT MANAGER Maxx Mccarty MD RAD US/RH documented in this encounter Visit Diagnoses Diagnosis Abdominal pain, left upper quadrant Poisoning by aromatic analgesics, not el sewhere classified(965.4) Poisoning by aromatic analgesics, not el sewhere classified Unspecified hemorrhage in early pregnanc y, antepartum state, incidental Aromatic analgesics, not elsewhere class ified, causing adverse effect in therapeutic use documented in this encounter Care Teams Pondman Relationship Specialty Start Date End Date Judith Almeida MD PCP - General 11/28/01 07/15/04 [address] [place] [address] documented as of this encounter
--- OUTSIDE RECORDS SUMMARY | 2022-01-07 13:12 | XMS_ITS | Encounter Summary ---
:1980 Author Organization [employer] Address [address] [place] [address] Care Team Providers Name Role Phone Unassigned, Provider Primary Care Provider Unavailable Encounter Details Date Type Department Care Team Description 03/13/2001 Office Visit [facility] Emergency Dept UTI; [address] [facility]. [place]; [place] [address] SCREEN FOR VENEREAL DIS; [phone] PREG EXAM-PREG UNCONFIRM Social History Tobacco Use Types Packs/Day Years Used Date Smoking Tobacco: Never Assessed Sex Assigned at Date Recorded Not on file documented as of this encounter ED Notes Cristóbal Bull - 03/13/2001 12:00 AM CSTLog Number: [id number] COMPLAINT: UTI symptoms. HISTORY OF PRESENT ILLNESS: The patient is an 20-year-old female, 1, para 0-1-0-1, currently menstruating, who presents to the emergency department complaining of dysuria. The patient states that she has pain at the end of micturition. She has also had urgency and dysuria. She has also complained of hesitancy of urination. This has been going on for approximately 2 days. The patient has also had some vaginal discharge, which she noted prior to her dysuria. The patient states that her boyfriend has Chlamydia and that she currently has it, and she was diagnosed at an outside clinic. She states that she has never been treated for this and states that she has not been treated because her boyfriend has it and they have been passing it back and forth to one another. She denies abdominal pain, nausea, vomiting, diarrhea, or flank pain. She has not had a fever. The patient states that she does have a history of UTIs in the past. Otherwise the patient denies current fever or neck stiffness, chest pain, shortness of breath, or rash. The patient has currently taken one dose of Bactrim, which she got from an outside physician that called this in through her mother. She is also taking Pyridium, which she has gotten no relief from. PAST MEDICAL HISTORY: Illnesses: Chlamydia. MEDICATIONS: Bactrim and Pyridium. ALLERGIES: NONE. REVIEW OF SYSTEMS: Please see ED chart. SOCIAL HISTORY: The patient uses alcohol occasionally. FAMILY HISTORY: Noncontributory. PHYSICAL EXAMINATION VITAL SIGNS: Blood pressure is 110/61, pulse 100, respirations 20, temperature 97.1. GENERAL: This is an 20-year-old female who is alert and oriented x 3 and in no acute distress. HEENT: Normocephalic and atraumatic. PERRL, EOMI. Tympanic membranes are clear. Oropharynx is clear. NECK: Supple. HEART: Regular rate and rhythm. LUNGS: Clear to auscultation. ABDOMEN: Soft and nontender, nondistended. Bowel sounds are present. GENITOURINARY: Normal-appearing external genitalia. There is blood in the posterior fornix. The cervix is closed. There appears to be no purulent discharge. The bimanual examination is significant for no cervical motion tenderness or adnexal tenderness. EXTREMITIES: No clubbing, cyanosis, or edema. IMPRESSION AND PLAN: Sexually transmitted diseases exposure and dysuria. We will obtain a cathed urine to exclude urinary tract infection. We will treat the patient with Zithromax and Suprax. We will send the patient out on doxycycline. LABORATORY DATA: Wet prep is negative for clue cells, yeast, or trichomonas. Beta HCG is negative. Urinalysis was obscured by the Pyridium that the patient was taking. However, the patient did have 15 RBCs and 23 WBCs with many bacteria. EMERGENCY DEPARTMENT COURSE: The patient remained hemodynamically stable. The patient was given 1 gram of Zithromax and 400 mg of Suprax p.o. The patient was sent out on doxycycline 1 p.o. b.i.d. for 14 days. The patient is to return if she develops any abdominal pain or worsening symptoms. FINAL DIAGNOSES 1. Sexually transmitted diseases prophylaxis. 2. Urinary tract infection. DISCHARGE INSTRUCTIONS: Please note this patient was given discharge instructions regarding STD and UTI. FOLLOWUP: The patient is to follow up at the [facility] or [facility] in 10 days. adf Dictated: 03/13/2001 18:42:23 Cristóbal Bull MD Transcribed: 03/13/2001 21:08:44 Patient seen with Rigo Abreu MD Doc #: [id number] Page 2 Patient Name: AZUL TELLEZ Visit Date: 03/13/2001 EMERGENCY MEDICINE NOTE CONFIDENTIAL MEDICAL RECORD [address] [address] Page 1 Patient: AZUL TELLEZ Location: [facility] HPN: Date of : 1980 Visit Date: 03/13/2001 EMERGENCY MEDICINE NOTE LE FOLD MACHINE OPERATOR documented in this encounter Plan of Treatment Not on filedocumented as of this encounter Visit Diagnoses Diagnosis Urinary tract infection, site not specif ied Dysuria Screening examination for venereal disea se examination or test documented in this encounter Care Teams Cuff Turner Relationship Specialty Start Date End Date Unassigned, Provider PCP - General 04/16/00 11/27/[address] [place] [address] documented as of this encounter
--- OUTSIDE RECORDS SUMMARY | 2022-01-07 13:12 | XMS_ITS | Encounter Summary ---
:1980 Author Organization [facility] Address [address] [place] [address] Care Team Providers Name Role Phone Non Pn, Clinician MD Primary Care Provider Unavailable Encounter Details Date Type Department Care Team Description 03/13/2001 Orders Only Rigo Camara MD [address] [place], [place] [address] [place] [address] [phone] (Wo rk) Social History Tobacco Use Types Packs/Day Years Used Date Smoking Tobacco: Never Assessed Sex Assigned at Date Recorded Not on file documented as of this encounter Plan of Treatment Not on filedocumented as of this encounter Procedures Procedure Name Priority Date/Time Associated Comments Diagnosis URINE MICROSCOPIC Routine 03/13/2001 5:38 PM Resu lts for this DIALYSIS SOCIAL WORKER procedure are i n the results section. UA CONDITIONAL UC Waiting 03/13/2001 5:38 PM Resu lts for this DIALYSIS SOCIAL WORKER procedure are i n the results section. TEST Waiting 03/13/2001 5:38 PM Results for this (URINE) DIALYSIS SOCIAL WORKER procedure are i n the results section. documented in this encounter Results (ABNORMAL) URINE MICROSCOPIC (03/13/2001 5:38 PM DIALYSIS SOCIAL WORKER) P athologist Signature RBC'S 15 (H) 0 - 3 /hpf [facility] WBC'S 23 (H) 0 - 5 /hpf [facility] Bact Many [facility] Epith, Squamous Few /hpf [facility] Specimen Anatomical Collection Method Collection Time Receive d Time (Source) Location / / Volume Laterality 03/13/2001 5:38 PM 2 6:08 DIALYSIS SOCIAL WORKER PM DIALYSIS SOCIAL WORKER Rigo Abreu MD LAB_1 Performing Organization Address City/[facility] Phon e Number [address] [address] [place], [place] [phone] (ABNORMAL) UA CONDITIONAL UC (03/13/2001 5:38 PM DIALYSIS SOCIAL WORKER) Patholo gist Method Time Signature Conditional Urine Cultured [facility] Culture Urine Comments Microscopic [facility] exam indicated Urine Color [place] [facility] Urine Clarity Hazy [facility] Specific 1.013 1.005 - REGIONS [place] 1.030 pH, Urine 5.0 4.5 - 8.0 [facility] Protein, Urine Patient Taking Medication Which May HARRISON mg/dl [facility] Qual Interfere With Test Glucose, Urine Patient Taking Medication Which May HARRISON mg/dl [facility] Qual Interfere With Test Ketones, Urine Patient Taking Medication Which May HARRISON mg/dl [facility] Interfere With Test Urobil, Urine Patient Taking Medication Which May 0.2 - 1.0 [facility] Qual Interfere With Test EU/dl Bilirubin, Negative [facility] Urine Bilirubin by Ictotest (A) Blood, Urine Patient Taking Medication Which May HARRISON [facility] Interfere With Test Nitrite, Urine Patient Taking Medication Which May HARRISON [facility] Interfere With Test Leukocyte Est., Patient Taking Medication Which May HARRISON [facility] Ur Interfere With Test Specimen Anatomical Collection Method Collection Time Receive d Time (Source) Location / / Volume Laterality 03/13/2001 5:38 PM 2 6:08 DIALYSIS SOCIAL WORKER PM DIALYSIS SOCIAL WORKER Rigo Abreu MD LAB_1 Performing Organization Address City/[facility] Phon e Number [address] [address] [place], [place] [phone] TEST (URINE) (03/13/2001 5:38 PM DIALYSIS SOCIAL WORKER) Analysis Performed At Patho logist Time Signature HCG, Urine Negative [facility] Less than 20 mIU Specimen Anatomical Collection Method Collection Time Receive d Time (Source) Location / / Volume Laterality 03/13/2001 5:38 PM 2 6:08 DIALYSIS SOCIAL WORKER PM DIALYSIS SOCIAL WORKER Rigo Abreu MD LAB_1 Performing Organization Address City/[facility] Phon e Number [address] [address] [place], [place] [phone] documented in this encounter Visit Diagnoses Not on filedocumented in this encounter Care Teams Forklift Mechanic Relationship Specialty Start Date End Date Non Pn, Clinician, PCP - General 06/05/14 10/14/15 [place] [address] documented as of this encounter
--- OUTSIDE RECORDS SUMMARY | 2022-01-07 13:12 | XMS_ITS | Encounter Summary ---
:1980 Author Organization [facility] Address [address] [place] [address] Care Team Providers Name Role Phone Non Pn, Clinician Primary Care Provider Unavailable Encounter Details Date Type Department Care Team Description 03/13/2001 Orders Only Rigo Camara MD [address] [place], [place] [address] [place], [place] [phone] (Wo rk) Social History Tobacco Use Types Packs/Day Years Used Date Smoking Tobacco: Never Assessed Sex Assigned at Date Recorded Not on file documented as of this encounter Plan of Treatment Not on filedocumented as of this encounter Procedures Procedure Name Priority Date/Time Associated Diagnosis Comme nts WET PREP Waiting 03/13/2001 5:38 PM Results f or this CLERK SPECIALIST procedure are i n the results section . documented in this encounter Results WET PREP (03/13/2001 5:38 PM CLERK SPECIALIST) [facility] gist Method Time Signature Trichomonas No Trichomonas [facility] seen Yeast No Yeast Found [facility] Clue Cells No Clue Cells [facility] seen Specimen Anatomical Collection Method Collection Time Receive d Time (Source) Location / / Volume Laterality 03/13/2001 5:38 PM 2 6:07 CLERK SPECIALIST PM CLERK SPECIALIST Rigo Abreu MD LAB_1 Performing Organization Address City/State/ZIP Code Phon e Number [address] [id number] [place], [place] [phone] documented in this encounter Visit Diagnoses Not on filedocumented in this encounter Care Teams Spiral Spring Winder Relationship Specialty Start Date End Date Non Pn, Clinician, PCP - General 06/05/14 10/14/15 [place] [address] documented as of this encounter
--- OUTSIDE RECORDS SUMMARY | 2022-01-07 13:13 | XMS_ITS | Encounter Summary ---
:1980 Author Organization [facility] Address [address] [place] [place] [address] Care Team Providers Name Role Phone Bebeto Roth MD Unavailable Astrid Riso PA-C Unavailable Francisco Metz MD Primary Care Provider [phone] Francisco Metz MD Unavailable [phone] Reason for Visit Reason Comments Consult Diabetes Encounter Details Date Type Department Care Team Description 01/23/[address] [facility] Kenton Katz Diet controlled [place] Endocrinolog y MD Feliberto gestational diabetes [address] [facility] NO INFO mellitus (GDM) in [place], [place] AVAILABLE third trimester [id number] (Primary Dx) [phone] Social History Tobacco Use Types Packs/Day Years [...] contact Unable to assess 01/23/2020 7:04 AM CITY EDITOR with someone who was confirmed or suspected [...] soon as the diagnosis of is made. EDITOR documented in this encounter Progress Notes Kenton [...] would you like to be contacted at? [phone] How would you like to obtain your [...] not been able to meet with a financial data analyst yet. Her fiancee had COVID and she [...] [place] [id number] as an E & M code Kenton Katz M.D CC: Dr Loyola Francisco [address] [address] Kristina See CMA - 01/23/2020 1:00 PM CST Copy of OV note mailed as requested to: Dr Loyola Francisco [facility] [address] [id number] EDITOR documented in this encounter Plan of Treatment Not on filedocumented as of this encounter Visit Diagnoses Diagnosis Diet controlled gestational diabetes callum litus (GDM) in third trimester - Primary documented in this encounter Care Teams Concrete Finisher Apprentice Relationship Specialty Start Date End Date Francisco Metz PCP - General Family Practice 11/14/18 04/02/20 MD Stevie Bebeto Roth MD Orthopedics 07/09/[address] [place] [address] Astrid Rios PA-C Physician Healthcare Corporate Account Director Physician Healthcare Corporate Account Director - 07/09/14 Surgical Francisco Metz Assigned PCP 07/04/19 02/01/20 MD Stevie [place] [address] [place] [address] documented as of this encounter
--- OUTSIDE RECORDS SUMMARY | 2022-01-07 13:13 | XMS_ITS | Encounter Summary ---
:1980 Author Organization [place] Address [address] [facility] [place] [address] Care Team Providers Name Role Phone Bebeto Roth MD Unavailable Astrid Rios PA-C Unavailable Francisco Metz MD Primary Care Provider Reason for Visit Reason Comments Confirmation Of Encounter Details Date Type Department Care Team Description 01/08/2019 Office Visit [facility] Family Lakisha Nielsen cy test positive (Primary Dx); Medicine Clinic DO Lacy Screening for condition [address] [address] [address] [place], [place] [phone] [address] Social History Tobacco Use Types Packs/Day Years Used Date Smoking Tobacco: Never Smokeless Tobacco: Never Alcohol Use Standard Drinks/Week Comments No 0 (1 standard drink = 0.6 oz pure alcoho l) Sex Assigned at Date Recorded Not on file documented as of this encounter Last Filed Vital Signs Vital Sign Reading Time Taken Comments Blood Pressure 115/79 01/08/2019 1:52 PM MULTI MEDIA SPECIALIST Pulse 121 01/08/2019 1:52 PM MULTI MEDIA SPECIALIST Temperature 36.2 ??C (97.2 ??F) 01/08/2019 1:52 PM MULTI MEDIA SPECIALIST Respiratory Rate 16 01/08/2019 1:52 PM MULTI MEDIA SPECIALIST Oxygen Saturation 100% 01/08/2019 1:52 PM MULTI MEDIA SPECIALIST Inhaled Oxygen Concentration - - Weight 75.6 kg (166 lb 9.6 oz) 01/08/2019 1:52 PM MULTI MEDIA SPECIALIST Height - - Body Mass Index 29.51 04/18/2018 8:42 AM MULTI MEDIA SPECIALIST documented in this encounter Patient Instructions Patient Lakisha Gonzalez, - 01/08/2019 1:40 PM MULTI MEDIA SPECIALIST Here is the plan from today's visit 1. Screening for condition - HCG Qualitative Urine (UPT) ([facility]) 2. test positive Results by [facility] - CBC with Plt ([facility]) - Hemoglobin A1c ([facility]) - Vit-Fe Fumarate-FA ( MULTIVITAMIN W/IRON) 27-0.8 [...] be mailed to you or sent through [employer] within 7 days. If the lab tests need quick action we will call you with the results. The phone number we will call with results is # [phone] (home) . If this is not the best numberplease call our clinic and change the number. Medication Refills: If you need any refills please call your pharmacy and they will contact us. If you need to worm picker your refill at a new pharmacy, please contact the new pharmacy directly. The new pharmacy will help you get your medications transferred faster. Scheduling: If you have any concerns about today's visit or wish to schedule another appointment please call ouroffice during normal business hours [phone] (8- 5:00 M-F) If a referral was made to a [facility] and you don't get a call from [facility] please call [phone]. If a Mammogram was ordered for you at [facility] call [phone] to schedule or change yourappointment. If you had an XRay/CT/Ultrasound/MRI ordered the number is [phone] to schedule or change your radiology appointment. Medical Concerns: If you have urgent medical concerns please call [phone] at any time of the day. Cyrus Nielsen DO I MEDIA SPECIALIST documented in this encounter Progress Notes Lakisha [...] Her last 2 deliveries have been with [facility]. Problem, Medication and Allergy Lists were reviewed [...] Qual Urine POSITIVE (A) Negative Hemoglobin A1c ([facility]) Status: None Result Value Ref Range Hemoglobin [...] care were reviewed with the patient. Azul Sapna Garg engaged in the decision making process and verbalized understanding of the options discussed and agreed with the final plan. Cyrus Nielsen DO [facility] Electrician Supervisor Airplane PGY-2 I MEDIA SPECIALIST Katalina Ching MD - 01/08/2019 1:40 PM CST Preceptor Attestation: Patient seen, evaluated and discussed with the resident. I have verified the content of the note, which accurately reflects my assessment of the patient and the plan of care. Supervising Physician: Katalina Ching MD I MEDIA SPECIALIST documented in this encounter Plan of Treatment Not on filedocumented as of this encounter Procedures Procedure Name Priority Date/Time Associated Comments Diagnosis HCL CBC WITH Routine 01/08/2019 2:41 PM Screening for Results for this PLATELETS, DIFF MULTI MEDIA SPECIALIST condition procedure ar e in the results section. HEMOGLOBIN A1C Routine 01/08/2019 2:34 PM test Resul ts for this (LABDAQ) MULTI MEDIA SPECIALIST positive procedure are i n the results section. HCG QUALITATIVE URINE Routine 01/08/2019 1:59 PM Screening for Results for this (LABDAQ) MULTI MEDIA SPECIALIST condition procedure are i n the results section. documented in this encounter Results (ABNORMAL) CBC with platelets differential (01/08/2019 2:41 PM MULTI MEDIA SPECIALIST) [facility] Method Time Signature WBC 8.9 4.0 - 01/08/2019 [facility] 11.0 9:11 PM MULTI MEDIA SPECIALIST [facility] 10e9/L [facility] RBC Count 4.64 3.8 - 5.2 01/08/2019 [facility] 10e12/L 9:11 PM [facility] Hemoglobin 10.9 (L) 11.7 - 01/08/2019 [facility] 15.7 g/dL 9:11 PM [facility] Hematocrit 36.2 35.0 - 01/08/2019 [facility] 47.0 % 9:11 PM [facility] MCV 78 78 - 100 01/08/2019 [facility] fl 9:11 PM [facility] MCH 23.5 (L) 26.5 - 01/08/2019 [facility] 33.0 pg 9:11 PM [facility] MCHC 30.1 (L) 31.5 - 01/08/2019 [facility] 36.5 g/dL 9:11 PM [facility] RDW 15.2 (H) 10.0 - 01/08/2019 [facility] 15.0 % 9:11 PM [facility] Platelet Count 359 150 - 450 01/08/2019 [facility] 10e9/L 9:11 PM [facility] Diff Method Automated 01/08/2019 [facility] Method 9:11 PM [facility] % Neutrophils 69.7 % 01/08/2019 [facility] 9:11 PM [facility] % Lymphocytes 18.5 % 01/08/2019 [facility] 9:11 PM [facility] % Monocytes 9.4 % 01/08/2019 [facility] 9:11 PM [facility] % Eosinophils 1.7 % 01/08/2019 [facility] 9:11 PM [facility] % Basophils 0.4 % 01/08/2019 [facility] 9:11 PM [facility] % Immature 0.3 % 01/08/2019 [facility] Granulocytes 9:11 PM [facility] Nucleated RBCs 0 0 /100 01/08/2019 [facility] 9:11 PM [facility] Absolute 6.2 1.6 - 8.3 01/08/2019 [facility] Neutrophil 10e9/L 9:11 PM [facility] Absolute 1.7 0.8 - 5.3 01/08/2019 [facility] Lymphocytes 10e9/L 9:11 PM [facility] Absolute 0.8 0.0 - 1.3 01/08/2019 [facility] Monocytes 10e9/L 9:11 PM MULTI MEDIA SPECIALIST [facility] Absolute 0.2 0.0 - 0.7 01/08/2019 [facility] Eosinophils 10e9/L 9:11 PM MULTI MEDIA SPECIALIST [facility] Absolute 0.0 0.0 - 0.2 01/08/2019 [facility] Basophils 10e9/L 9:11 PM [facility] Abs Immature 0.0 0 - 0.4 01/08/2019 [facility] Granulocytes 10e9/L 9:11 PM MULTI MEDIA SPECIALIST [facility] Absolute 0.0 01/08/2019 [facility] Nucleated RBC 9:11 PM MULTI MEDIA SPECIALIST [facility] Specimen Anatomical Collection Method Collection Time Receive d Time (Source) Location / / Volume Laterality Blood specimen VENOUS BLOOD / 01/08/2019 2:41 PM 01/08 5:00 (specimen) Unknown MULTI MEDIA SPECIALIST PM MULTI MEDIA SPECIALIST Katalina Ching MD LAB - BLOOD ORDERABLES Performing Organization Address [facility]/ZIP [facility] Phon e Number [facility] [address] [place] [address] [facility] Hemoglobin A1c ([facility]) (01/08/2019 2:34 PM MULTI MEDIA SPECIALIST) athologist Signature Hemoglobin A1C 4.8 4.1 - 5.7 [facility]ICINE LABDAQ Specimen Anatomical Collection Method Collection Time Receive d Time (Source) Location / / Volume Laterality Blood specimen VENOUS BLOOD / 01/08/2019 2:34 PM 01/08 2:35 (specimen) Unknown MULTI MEDIA SPECIALIST PM MULTI MEDIA SPECIALIST Katalina Ching MD LAB - LABDAQ Performing Organization Address City/[facility] Phon e Number [facility] [address] [place] [phone] LABDAQ (ABNORMAL) HCG Qualitative Urine (UPT) ([facility]) (01/08/2019 1:59 PM MULTI MEDIA SPECIALIST) [facility] gist Method Time Signature HCG Qual POSITIVE (A) Negative [facility] Urine [facility] MEDICINE LABDAQ Specimen Anatomical Collection Method Collection Time Receive d Time (Source) Location / / Volume Laterality Urine specimen 01/08/2019 1:59 PM 019 2:00 (specimen) MULTI MEDIA SPECIALIST PM MULTI MEDIA SPECIALIST Katalina Ching MD LAB - LABDAQ Performing Organization Address City/State/ZIP Code Phon e Number [facility] [address] [place], [place] [address] LABDAQ documented in this encounter Visit Diagnoses Diagnosis test positive - Primary examination or test, positive result Screening for condition Screening for unspecified condition documented in this encounter Care Teams Grand Jury Deputy Sheriff Relationship Specialty Start Date End Date Francisco Metz PCP - General Family Practice 11/14/18 04/02/20 MD Stevie Bebeto Roth MD Orthopedics 07/09/14 [facility] [place] [place] [address] Astrid Rios PA-C Physician Computing Services Director Physician Computing Services Director - 07/09/14 Surgical documented as of this encounter
--- OUTSIDE RECORDS SUMMARY | 2022-01-07 13:13 | XMS_ITS | Encounter Summary ---
:[address] Address formerly [facility] [place] [address] Care Team Providers Name Role Phone Bebeto Roth MD Unavailable Astrid Rios PA-C Unavailable Keri Elias MD Primary Care Provider Unavailable Reason for Visit Reason Comments Surgical Followup 12 wk pop DOS 10/23/17 Surgical Followup Encounter Details Date Type Department Care Team Description 01/17/2018 Office Visit [facility] Orthopaedic Bebeto Roth S/P spi nal fusion Clinic MD Devan (Primary Dx) [address] [address] [address] [facility] [address] [place] [address] [id number] Social History Tobacco Use Types Packs/Day Years Used Date Smoking Tobacco: Never Smokeless Tobacco: Never Alcohol Use Standard Drinks/Week Comments No 0 (1 standard drink = 0.6 oz pure alcoho l) Sex Assigned at Date Recorded Not on file documented as of this encounter Progress Notes Bebeto Roth MD - 01/17/2018 7:45 AM CST [facility] Bebeto Roth MD 01/17/2018 Name: [...] or symptoms distally. SRS 64% KYLEE: 12 Uxqyrb38: 32 Pain scale: 2.5/10 Physical Examination: Focused [...] No Joint stiffness: No Bone fracture: No CIAL COURT INTERPRETER documented in this encounter Nursing Notes Catherine Peralta, ATC - 01/17/2018 7:45 AM CST Reason For Visit: Chief Complaint Patient presents with ??? Spine - Surgical Followup ??? Surgical Followup 12 wk pop DOS 10/23/17 Primary MD: Keri Elias MD: Self Referred ?? Vinyl Top Installer? 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 Work [...] data might be hidden Catherine Peralta ATC CIAL COURT INTERPRETER documented in this encounter Plan of Treatment Not on filedocumented as of this encounter Visit Diagnoses Diagnosis S/P spinal fusion - Primary Arthrodesis status documented in this encounter Care Teams Technical Writer And Editor Relationship Specialty Start Date End Date Keri Elias PCP - General Family Practice 03/12/15 9 MD Ira Glez David Wayne, MD Orthopedics 07/09/[address] [place] [address] Astrid Rios PA-C Physician Membership Advisor Physician Membership Advisor - 07/09/14 Surgical documented as of this encounter
--- OUTSIDE RECORDS SUMMARY | 2022-01-07 13:13 | XMS_ITS | Encounter Summary ---
:1980 Author Organization [place] Address [address] [facility] [place] [address] Care Team Providers Name Role Phone Bebeto Roth MD Unavailable Astrid Rios PA-C Unavailable Francisco Metz MD Primary Care Provider [phone] Encounter Details Date Type Department Care Team [...] on filedocumented in this encounter Care Teams Net Repairer Relationship Specialty Start Date End Date Francisco Metz PCP - General Family Practice 11/14/18 04/02/20 MD Stevie Bebeto Roth MD Orthopedics 07/09/14 [facility] [place] [address] Astrid Rios PA-C Physician Auto Service Instructor Physician Auto Service Instructor - 07/09/14 Surgical documented as of this encounter
--- OUTSIDE RECORDS SUMMARY | 2022-01-07 13:13 | XMS_ITS | Encounter Summary ---
:1980 Author Organization [place] Address [facility] [place] [address] Care Team Providers Name Role Phone Bebeto Roth MD Unavailable Astrid Rios PA-C Unavailable Keri Elias MD Primary Care Provider Unavailable Reason for Visit Diagnostic Imaging XR - Closed Specialty Diagnoses / Procedures Referred By Contact Refer red To Contact Diagnoses Scoliosis Bebeto Roth MD Procedures XR Spine Complete Scoliosis [address] [place], [place] [address] Referral ID Status Reason Start Date Expiration Date Visits Requ ested Visits Authorized [id number] Closed 04/17/2018 04/17/2019 1 1 Encounter Details Date Type Department Care Team Description 04/18/2018 Ancillary Procedure [facility] Chan Roth MD [address] [facility] [address] 1[address] [place] [address] [phone] Social History Tobacco Use Types Packs/Day Years [...] Resu lts for this SCOLIOSIS 2 VIEWS HOG KILLER procedure are in the results section. documented in this encounter Results XR Spine Complete Scoliosis 2 Views (04/18/2018 9:23 AM HOG KILLER) Anatomical Region Laterality Modality Spine Computed Radiography Specimen (Source) Anatomical Location Collection Method / Collectio n Time Received Time / Laterality Volume Impressions 04/18/2018 3:19 PM HOG KILLER Impression: 1. Fusion hardware from T4 through L3 wi thout evidence of hardware complication. 2. Mild convex right curvature of the th oracolumbar/lumbar spine with apex at T12. 3. No substantial global coronal imbalan ce. 4. Normal sagittal vertical axis. MADALYN ZARAGOZA MD Narrative 04/18/2018 3:19 PM HOG KILLER Exam: XR SIX FOOT STANDING EXTREMITIES, XR [...] on filedocumented in this encounter Care Teams Cone Runner Relationship Specialty Start Date End Date Keri Elias PCP - General Family Practice 03/12/15 9 MD Ira Glez David Wayne, MD Orthopedics 07/09/[address] [place] [address] Astrid Rios PA-C Physician Gym Instructor Physician Gym Instructor - 07/09/14 Surgical documented as of this encounter
--- OUTSIDE RECORDS SUMMARY | 2022-01-07 13:13 | XMS_ITS | Encounter Summary ---
:1980 Author Organization [place] Address [facility] [place] [address] Care Team Providers Name Role Phone Bebeto Roth MD Unavailable Astrid Rios PA-C Unavailable Keri Elias MD Primary Care Provider Unavailable Reason for Visit Reason Comments RECHECK DOS 10/23/17 extrention of jf mcintosh, follow up scoliosis Encounter Details Date Type Department Care Team Description 04/18/2018 Office Visit [facility] thoracolumbar region (Primary Dx); Clinic MD Devan History of spinal fusion [address] [place] [address] [address]th [address] [place] [address] [phone] Social History Tobacco Use Types Packs/Day Years [...] 68.9 kg (152 lb) 04/18/2018 8:42 AM LOCK AND DAM OPERATOR Height 160 cm (5' 3) 04/18/2018 8:42 AM LOCK AND DAM OPERATOR Body Mass Index 26.93 04/18/2018 8:42 AM LOCK AND DAM OPERATOR documented in this encounter Progress Notes Bebeto Roth MD - 04/18/2018 8:45 AM CST [facility] Bebeto Roth MD 04/18/2018 Name: Azul [...] and developed the plan. Bebeto Roth MD AND DAM OPERATOR documented in this encounter Nursing Notes Quincy Rosas, DODIE - 04/18/2018 8:45 AM CST Reason For Visit: Chief Complaint Patient presents with ??? RECHECK DOS 10/23/17 extrention of fusion, follow up scoliosis Primary MD: Krei Elias MD: self Salesperson Household Appliances? No Date of surgery: 10/23/17 Type of [...] data might be hidden Quincy Rosas ATC AND DAM OPERATOR documented in this encounter Plan of Treatment Not on filedocumented as of this encounter Visit Diagnoses Diagnosis Adolescent idiopathic scoliosis of th[facility] - Primary Scoliosis (and kyphoscoliosis), idiopath ic History of spinal fusion Arthrodesis status documented in this encounter Care Teams Customer Greeter Relationship Specialty Start Date End Date Keri Elias PCP - General Family Practice 03/12/15 9 MD Ira Glez David Wayne, MD Orthopedics 07/09/[address] [place] [address] Astrid Rios PA-C Physician Tufter Hand Physician Tufter Hand - 07/09/14 Surgical documented as of this encounter
--- OUTSIDE RECORDS SUMMARY | 2022-01-07 13:13 | XMS_ITS | Encounter Summary ---
:1980 Author Organization [place] Address [facility] [place] [address] Care Team Providers Name Role Phone Bebeto Roth MD Unavailable Astrid Rios PA-C Unavailable Keri Elias MD Primary Care Provider Unavailable Reason for Visit Diagnostic Imaging XR - Closed Specialty Diagnoses / Procedures Referred By Contact Refer red To Contact Diagnoses Scoliosis Kyphosis (acquired) (postural) Bebeto Roth MD Procedures XR Spine Complete Scoliosis [address] [place], [place] [address] Referral ID Status Reason Start Date Expiration Date Visits Requ ested Visits Authorized [id number] Closed 01/10/2018 01/10/2019 1 1 Encounter Details Date Type Department Care Team Description 01/17/2018 Radiant Appointment [facility] Bebeto Roth Scol iosis; Center Xray MD Devan Kyphosis (acquired) (postural) [address] [facility] [address] [facility], [address] [place] [address] [phone] Social History Tobacco Use Types Packs/Day Years [...] Scoliosis Results for this SCOLIOSIS 2 VIEWS ELEVATOR TROUBLESHOOTER Kyphosis (acquired) pro cedure are in (postural) the results section. documented in this encounter Results XR Spine Complete Scoliosis 2 Views (01/17/2018 8:41 AM ELEVATOR TROUBLESHOOTER) Anatomical Region Laterality Modality Spine Computed Radiography Specimen (Source) Anatomical Location Collection Method / Collectio n Time Received Time / Laterality Volume Impressions 01/17/2018 2:07 PM ELEVATOR TROUBLESHOOTER Impression: 1. Fusion instrumentation from T4 throug h L3 without evidence of hardware complication. 2. Mild convex right curvature of the th oracolumbar/lumbar spine with apex at T12. 3. No substantial global coronal imbalan ce. 4. Normal sagittal vertical axis. MADALYN ZARAGOZA MD Narrative 01/17/2018 2:07 PM ELEVATOR TROUBLESHOOTER Exam: XR SPINE COMPLETE SCOLIOSIS 2 VW, [...] No substantial global coronal imbalance. Sagittal Vertical [place] (A vertical line drawn from the center [...] No substantial global coronal imbalance. Sagittal Vertical [place] (A vertical line drawn from the center [...] (postural) documented in this encounter Care Teams Pocket Cutter Relationship Specialty Start Date End Date Keri Elias PCP - General Family Practice 03/12/15 9 [place] Ira echavarria David Wayne, MD Orthopedics 07/09/[address] [place] [address] Astrid Rios PA-C Physician Student Life Coordinator Physician Student Life Coordinator - 07/09/14 Surgical documented as of this encounter
--- OUTSIDE RECORDS SUMMARY | 2022-01-07 13:13 | XMS_ITS | Clinical Summary ---
:1980 Author Organization [place] Address [address] [facility] [place] [address] Care Team Providers Name Role Phone Bebeto Roth MD Unavailable Astrid Rios PA-C Unavailable Karen Veliz DO Primary Care Provider Karen Veliz DO Unavailable Allergies Active Allergy Reactions Severity Noted Date Comments Seasonal Allergies 10/04/2011 Medications Medication Sig Dispensed Refills Start Date End Date Status fluticasone (FLONASE) 50 [place] 1-2 sprays 16 g 3 07/06/19 18 [...] be differe nt from the original. [email or web address] Problem Noted Date S/P spinal fusion 10/23/2017 Frequent UTI 12/14/2016 Anemia, iron deficiency 12/14/2016 Pain in thoracic spine 08/07/2014 Other orthopedic aftercare(V54.89) 08/07/2014 Grief 03/13/2014 Overview: Pt's boyfriend of heroin overdose d ay after 2013. Seeing [facility] for therapy Dermatofibroma of left thigh 11/22/2012 [facility] 12/19/2011 Overview: Tier 0 DX V65.8 REPLACED WITH [id number] (05/21/2012) Anxiety 12/19/2011 Congenital [...] OB PROVIDERS 1.Keri Elias 2. Eva Hogan ([phone]) CARE PLAN ?? Consults: ?? Ultrasounds: 08/03/16 [...] Comments Blood Pressure 94/56 02/18/2019 7:21 PM SQUARING MACHINE OPERATOR Pulse 56 02/18/2019 7:21 PM SQUARING MACHINE OPERATOR Temperature 36.9 ??C (98.4 ??F) 02/18/2019 3:50 PM SQUARING MACHINE OPERATOR Respiratory Rate 16 02/18/2019 7:21 PM SQUARING MACHINE OPERATOR Oxygen Saturation 94% 02/18/2019 7:21 PM SQUARING MACHINE OPERATOR Inhaled Oxygen Concentration - - Weight 73.5 kg (162 lb) 02/18/2019 3:50 PM SQUARING MACHINE OPERATOR Height 160 cm (5' 3) 04/18/2018 8:42 AM SQUARING MACHINE OPERATOR Body Mass Index 28.7 04/18/2018 8:42 AM SQUARING MACHINE OPERATOR Plan of Treatment Health Maintenance Due Date [...] 64 Years) Medical Devices Implanted Type Area Colorist Device Shelf Model / Serial Identifier Expiration / Lot Date Graft Bone Crush Canc 30ml [id number] Bone/Tissu N/A: Spine MUSCULOSKELET AL 08/28/2020 [id number] / Implanted: Qty: 1 on 10/23/2017 by Bebeto Roth MD at [facility] e/Biologic Thoracic HANSEN [id number] / Imp Scr D[place] Legacy Breakoff Set 5.5mm Ti [id number] Metallic N/A: Spine MEDTRONIC, [id number] / Implanted: Qty: 5 on 10/23/2017 by Bebeto Roth MD at [facility] Hardware/A Thoracic INC-DANEK / nchor Axial [place] N/A: Spine MEDTRONIC [id number] / Implanted: Qty: 2 on 10/23/2017 by Bebeto Roth MD at [facility] Thoracic INC-DANE[employer] / Explanted Type Area Colorist Device Shelf Model / Identifier Expiration Serial / Date Lot 5 Set Screws N/A: Spine Explanted: Qty: 1 on 10/23/2017 at [facility] Thoracic Insurance Payer Benefit Plan / Subscriber ID Effective Phone Address T [facility] [id number] 2016-Pres [phone] [address] O ADVANTAGE ent [address] [place] [address] [place] (Home) [place] [address] [place] Personal/Family Self [address] [place]) [place] [address] [place] Third Green Party Self 1980 [address] (Home) [place] [address] Advance Directives For more information, please contact: [phone] Latest Code Status on File Code Status Date Activated Date Inactivated Comments Full Code 10/25/2017 10:23 AM 10/27/2017 8:35 AM Code Status History Code Status Date Activated Date Inactivated Comments Full Code 10/23/2017 2:18 PM 10/25/2017 10:23 AM Full Code 03/05/2017 11:49 AM 10/23/2017 2:18 PM Care Teams Filenet P8 Developer Relationship Specialty Start Date End Date Karen Veliz DO PCP - General Family Medicine 04/03/202019 [place] [address] Bebeto Roth MD Orthopedics 07/09/[address] [place] [address] Astrid Rios PA-C Physician Visiting Nurse Physician Visiting Nurse - 07/09/14 Surgical Karen Veliz DO Assigned PCP 08/28/202019 [place] [address]
--- OUTSIDE RECORDS SUMMARY | 2022-01-07 13:13 | XMS_ITS | Encounter Summary ---
:1980 Author Organization [place] Address [address] [facility] [place] [address] Care Team Providers Name Role Phone Bebeto Roth MD Unavailable Astrid Rios PA-C Unavailable Farncisco Metz MD Primary Care Provider [phone] Francisco Metz MD Unavailable [phone] Reason for Visit Reason Onset Date Comments Referral 10/03/2019 [facility] Encounter Details Date Type Department Care Team Description 10/03/2019 Telephone [facility] Francisco Metz Referral ( [facility] MD Stevie [facility] [address] 7 651 [facility] [phone] KH[address] 2606 Social History Tobacco Use Types Packs/Day Years [...] would need to ok authorization, reference # [id number]. This authorization that was entered on 09/19/19 [...] referral/auth online with [facility]. Marli Gonzales Hair Dryer Telephone Encounter - Marli Gonzales - 10/09/2019 9:56 AM CDT 10/07/19 Attempted to reach Marium at [place], Left message on voicemail. 10/09/19 Left message on Marium voicemail. Marli Gonzales Hair Dryer Telephone Encounter - Lisa Ventura - 10/03/2019 10:44 AM CDT [facility] Family Medicine phone call message - order or referral request from patient: Order or referral being requested: Referral to: [facility] At Location: [place], [place] Additional Details: Marium calling from [facility] to advise that [facility] denied their claim for patient's visit with them on 08/14/19. Marium advised that per [facility], an authorization request was sent to [facility] (by [facility]) authorizing the patient to receive care in [place]. Authorization request # [id number]. Referral only -Specialty see above Location see above OK to leave a message on voice mail? Yes Primary language: Russian Spike Machine Operator needed? No Call taken on October 03, 2019 at 10:45 AM by Lisa Ventura Order request route to P SMI TRIAGE Referrals Route to P SMI (Green/Mccook/Purple) TREE DRILLER documented in this encounter Plan of Treatment Not on filedocumented as of this encounter Visit Diagnoses Not on filedocumented in this encounter Care Teams Religion Department Chair Relationship Specialty Start Date End Date Francisco Metz PCP - General Family Practice 11/14/18 04/02/20 MD Stevie Bebeto Roth MD Orthopedics 07/09/14 [address] [place] [address] Astrid Rios PA-C Physician Youth Services Librarian Physician Youth Services Librarian - 07/09/14 Surgical Francisco Metz Assigned PCP 07/04/19 02/01/20 MD Stevie [place] [id number] [place] [address] [place] LUCIO [address] documented as of this encounter
--- OUTSIDE RECORDS SUMMARY | 2022-01-07 13:13 | XMS_ITS | Encounter Summary ---
:1980 Author Organization [place] Address [address] [place] [address]. [place] [address] Care Team Providers Name Role Phone Bebeto Roth MD Unavailable Astrid Rios PA-C Unavailable Francisco Metz MD Primary Care Provider [phone] Reason for Visit Reason Comments Miscarriage confirmed by [facility] on February 14. Has US results with her. Now having very heavy bleedi ng with golfball sized clots. Encounter Details Date Type Department Care Team Description 02/18/2019 Emergency [facility] Miguel Angel Collins MD [facility] [address] [address] [place] [phone] Social History Tobacco Use Types Packs/Day Years Used Date Smoking Tobacco: Never Smokeless Tobacco: Never Alcohol Use Standard Drinks/Week Comments No 0 (1 standard drink = 0.6 oz pure alcoho l) Sex Assigned at Date Recorded Not on file documented as of this encounter Last Filed Vital Signs Vital Sign Reading Time Taken Comments Blood Pressure 94/56 02/18/2019 7:21 PM VETERINARY DENTIST Pulse 56 02/18/2019 7:21 PM VETERINARY DENTIST Temperature 36.9 ??C (98.4 ??F) 02/18/2019 3:50 PM VETERINARY DENTIST Respiratory Rate 16 02/18/2019 7:21 PM VETERINARY DENTIST Oxygen Saturation 94% 02/18/2019 7:21 PM VETERINARY DENTIST Inhaled Oxygen Concentration - - Weight 73.5 kg (162 lb) 02/18/2019 3:50 PM VETERINARY DENTIST Height - - Body Mass Index 28.7 04/18/2018 8:42 AM VETERINARY DENTIST documented in this encounter Discharge Instructions Discharge InstructionsGrAditi Ellington MD - 02/18/2019 7:06 PM VETERINARY DENTIST Please make an appointment to follow up with plastic maker[facility] (phone: ). Call tomorrow for an appointment. RINARY DENTIST AttachmentsThe following attachments cannot be sent through Care Everywhere. Miscarriage, Spontaneous (Completed) (Serbian)documented in this encounter Medications at Time of Discharge Medication Sig Dispensed Refills Start Date End Date ferrous sulfate (FEROSUL) Take 1 tablet (325 60 tablet 1 325 (65 Fe) MG mg) by mouth daily tabletIndications: Iron (with breakfast) deficiency anemia, unspecified iron deficiency anemia type fluticasone (FLONASE) 50 [place] 1-2 sprays 16 g 3 07/05 MCG/ACT [...] Patient presents with ??? Miscarriage confirmed by [facility] on February 14. Has US results with her. Now having very heavy bleeding with golfball sized clots. HPI Azul Garg is a 38 year old female currently 6w4d (due date 09/13/2019) presenting with 5 days of bleeding. Patient states she started bleeding about 5 days ago and was seen at [facility] on 02/15/2019. Ultrasound was done at this [...] blood every 1-3 hours. She returned to [facility]- they were unable to reach OB motion picture director and sent patient here. Patient states she received Toradol around 2pm this afternoon. Patient denies fever/chills, lightheadedness/dizziness/syncope, nausea/vomiting, severe pain. Her blood type is O pos (03/07/2002, [employer]). I have reviewed the Medications, Allergies, Past Medical and Surgical History, and Social History inthe [employer] [employer] system. Review of Systems Constitutional: Negative for [...] nursing note reviewed. Exam conducted with a broadcast maintenance technician present. Constitutional: General: She is not in [...] sac consistent with completed spontaneous . OB motion picture director reviewed ultrasound, recommended no further intervention. Hemoglobin [...] in detail. She will follow-up with the bank cashier clinic. RANDY COLLINS MD, MD I have reviewed the nursing notes. I have reviewed the findings, diagnosis, plan and need for follow up with the patient. Discharge Medication List as of 02/18/2019 7:05 PM Final diagnoses: Miscarriage 02/18/2019 [facility] EM[facility]Y DEPARTMENT Aditi Feliciano MD Resident 02/18/19 [id number] Randy Collins MD 02/18/19 [id number] RINARY DENTIST documented in this encounter Plan of Treatment Not on filedocumented as of this encounter Procedures Procedure Name Priority Date/Time Associated Comments Diagnosis US OB < 14 WEEKS STAT 02/18/2019 5:33 PM Resul ts for this SINGLE-TRANSABDOMINAL VETERINARY DENTIST proced ure are in the results section. HCG QUANTITATIVE STAT 02/18/2019 4:22 PM Resul ts for this VETERINARY DENTIST procedure are i n the results section. CBC WITH PLATELETS Routine 02/18/2019 4:22 PM Res ults for this VETERINARY DENTIST procedure are i n the results section. documented in this encounter Results US OB < 14 Weeks Single (02/18/2019 5:33 PM VETERINARY DENTIST) Anatomical Region Laterality Modality Abdomen/Pelvis Ultrasound Specimen (Source) Anatomical Location Collection Method / Collectio n Time Received Time / Laterality Volume Impressions 02/18/2019 8:17 PM VETERINARY DENTIST IMPRESSION: 1. No evidence of infiltrate finding ges tational sac, yolk sac or pole. 2. The endometrial stripe is heterogenou s and mildly thickened measuring 1.2 cm, given the patient's hi story of , cannot completely exclude retained products con ception. JOSE CRUZ MORENO MD Narrative 02/18/2019 8:17 PM VETERINARY DENTIST OBSTETRIC ULTRASOUND LESS THAN 14 WEEKS SINGLE [...] (ABNORMAL) CBC with platelets (02/18/2019 4:22 PM VETERINARY DENTIST) [facility] gist Method Time Signature WBC 11.4 (H) 4.0 - 11.0 02/18/2019 [facility] 10e9/L 5:55 PM VETERINARY DENTIST [facility] RBC Count 4.26 3.8 - 5.2 02/18/2019 [facility] 10e12/L 5:55 PM [facility] Hemoglobin 10.3 (L) 11.7 - 02/18/2019 [facility] 15.7 g/dL 5:55 PM [facility] Hematocrit 33.2 (L) 35.0 - 02/18/2019 [facility] 47.0 % 5:55 PM VETERINARY DENTIST [facility] MCV 78 78 - 100 02/18/2019 [facility] fl 5:55 PM VETERINARY DENTIST [facility] MCH 24.2 (L) 26.5 - 02/18/2019 [facility] 33.0 pg 5:55 PM [facility] MCHC 31.0 (L) 31.5 - 02/18/2019 [facility] 36.5 g/dL 5:55 PM [facility] RDW 15.0 10.0 - 02/18/2019 [facility] 15.0 % 5:55 PM [facility] Platelet Count 328 150 - 450 02/18/2019 [facility] 10e9/L 5:55 PM [facility] Specimen Anatomical Collection Method Collection Time Receive d Time (Source) Location / / Volume Laterality 02/18/2019 4:22 PM 0 5:11 VETERINARY DENTIST PM VETERINARY DENTIST Aditi Feliciano MD LAB - BLOOD ORDERABLES Performing Organization Address City/State/ZIP Code Phon e Number [facility] [address] [place] [address] [facility] (ABNORMAL) HCG quantitative (blood) (02/18/2019 4:22 PM VETERINARY DENTIST) [facility] Method Time Signature HCG Quantitative 8,208 (H) 0 - 5 02/18/2019 [place] [facility] Serum IU/L 5:50 PM VETERINARY DENTIST [facility] Specimen Anatomical Collection Method Collection Time Receive d Time (Source) Location / / Volume Laterality Blood specimen 02/18/2019 4:22 PM 020 5:11 (specimen) VETERINARY DENTIST PM VETERINARY DENTIST Aditi Feliciano MD LAB - BLOOD ORDERABLES Performing Organization Address City/State/ZIP Code Phon e Number [facility] [address] [place] [address] [facility] documented in this encounter Visit Diagnoses Diagnosis Miscarriage Unspecified spontaneous without mention of complication documented in this encounter Administered Medications Inactive Administered Medications - up to 3 most recent administrations Medication Order MAR Action Action Date Dose Rate Site 0.9% sodium chloride BOLUS New Bag 02/18/2019 4:48 PM VETERINARY DENTIST 1,000 mLs 1000 mL/hr Intravenous, 1,000 mL, ONCE, at 1,000 mL/hr, Administer over 1 Hours, On 02/18/19 at 1646, For 1 dose NO Rho (D) immune globulin (RhoGam) need ed - mother Rh POSITIVE CONTINUOUS PRN, Starting on 02/18/19 at 1646, Until 02/18/19 at 2121 documented in this encounter Active and Recently Administered Medications Times are shown in VETERINARY DENTIST. Scheduled Medication Order 02/16/2019 02/17/2019 02/18/2019 0.9% sodium chloride BOLUS (COMPLETED) 1648 (New Bag - Provider: Kristnia Keys, KENNY)1806 (Stopped - Provider: Kristina Keys, RN) Intravenous, 1,000 mL, ONCE, at 1,000 mL /hr, Administer over 1 Hours, 02/18/19 at 1646, For 1 dose PRN Medication Order 02/16/2019 02/17/2019 02/18/2019 NO Rho (D) immune globulin (RhoGam) needed - mother Rh POSITIVE CONTINUOUS PRN, Starting 02/18/19 at 1646, Until 02/18/19 at 2121 documented in this encounter Care Teams Ply Splicer Relationship Specialty Start Date End Date Francisco Metz PCP - General Family Practice 11/14/18 04/02/20 MD Stevie Bebeto Roth MD Orthopedics 07/09/[address] [place] [address] Astrid Rios PA-C Physician Java Engineer Physician Java Engineer - 07/09/14 Surgical documented as of this encounter
--- OUTSIDE RECORDS SUMMARY | 2022-01-07 13:13 | XMS_ITS | Encounter Summary ---
:1980 Author Organization [place] Address [address] [facility] [place] [address] Care Team Providers Name Role Phone Bebeto [...] on filedocumented in this encounter Care Teams Biomass Power Plant Manager Relationship Specialty Start Date End Date Francisco Metz PCP - General Family Practice 11/14/18 04/02/20 MD Stevie Bebeto Roth MD Orthopedics 07/09/14 [facility] [place] [address] Astrid Rios PA-C Physician Marketing Database Analyst Physician Marketing Database Analyst - 07/09/14 Surgical documented as of this encounter
--- OUTSIDE RECORDS SUMMARY | 2022-01-07 13:13 | XMS_ITS | Encounter Summary ---
:1980 Author Organization [place] Address [facility] [place] [address] Care Team Providers Name Role Phone Bebeto Roth MD Unavailable Astrid Rios PA-C Unavailable Francisco Metz MD Primary Care Provider [phone] Francisco Metz MD Unavailable [phone] Encounter Details Date Type Department Care [...] contact Unable to assess 01/23/2020 7:04 AM INVESTMENT ANALYST with someone who was confirmed or suspected to have Coronavirus / COVID-19? documented as of this encounter Plan of Treatment Not on filedocumented as of this encounter Visit Diagnoses Not on filedocumented in this encounter Care Teams Record Cutter Relationship Specialty Start Date End Date Francisco Metz PCP - General Family Practice 11/14/18 04/02/20 MD Stevie Bebeto Roth MD Orthopedics 07/09/[address] [place], [place] [address] Astrid Rios PA-C Physician Family Life Counselor Physician Family Life Counselor - 07/09/14 Surgical Francisco Metz Assigned PCP 07/04/19 02/01/20 MD Stevie [place] [id number] [place] [address] [place] [address] documented as of this encounter
--- OUTSIDE RECORDS SUMMARY | 2022-01-07 13:13 | XMS_ITS | Encounter Summary ---
:1980 Author Organization [place] Address [address] [facility] [place] [address] Care Team Providers Name Role Phone Bebeto Roth MD Unavailable Astrid Rios PA-C Unavailable Kenton Katz MD Unavailable Unavailable Karen Veliz DO Primary Care Provider Encounter Details Date Type Department Care Team Description 07/11/2020 Records - [facility] CONVERSION Provider, Histor ical Social History Tobacco [...] on filedocumented in this encounter Care Teams Emissions Testing And Repair Technician Relationship Specialty Start Date End Date Karen Veliz DO PCP - General Family Medicine 04/03/[address] [place] [address] Bebeto Roth MD Orthopedics 07/09/[address] [place] [address] Astrid Rios PA-C Physician Loan Clerk Physician Loan Clerk - 07/09/14 Surgical Kenton Katz Assigned PCP 02/02/20 08/27/20 MD Feliberto NO INFO AVAILABLE documented as of this encounter
--- OUTSIDE RECORDS SUMMARY | 2022-01-07 13:13 | XMS_ITS | Encounter Summary ---
:1980 Author Organization [place] Address [address] [facility] [place] [address] Care Team Providers Name Role Phone Bebeto [...] on filedocumented in this encounter Care Teams Art Professor Relationship Specialty Start Date End Date Keri Elias PCP - General Family Practice 03/12/15 9 MD Ira Glez David Wayne, MD Orthopedics 07/09/[address] [place] [address] Astrid Rios PA-C Physician Feather Washer Physician Feather Washer - 07/09/14 Surgical documented as of this encounter
--- OUTSIDE RECORDS SUMMARY | 2022-01-07 13:13 | XMS_ITS | Encounter Summary ---
:1980 Author Organization [place] Address [facility] [place] [address] Care Team Providers Name Role Phone Bebeto Roth MD Unavailable Astrid Rios PA-C Unavailable Keri Elias MD Primary Care Provider Unavailable Reason for Visit Diagnostic Imaging XR - Closed Specialty Diagnoses / Procedures Referred By Contact Refer red To Contact Diagnoses Scoliosis Kyphosis (acquired) (postural) Bebeto Roth MD Procedures XR Six Foot Standing Extremities [address] [place], [place] [address] Referral ID Status Reason Start Date Expiration Date Visits Requ ested Visits Authorized [id number] Closed 01/10/2018 01/10/2019 1 1 Encounter Details Date Type Department Care Team Description 01/17/2018 Radiant Appointment [facility] Bebeto Roth Scdenny iosis; Center Xray MD Devan Kyphosis (acquired) (postural) [address] [facility] [address] [facility] [address] [place] [address] [phone] Social History Tobacco Use Types Packs/Day Years [...] AM Lin s Results for this EXTREMITIES MATERIAL ENGINEER Kyphosis (acquired) procedur e are in (postural) the results section. documented in this encounter Results XR Six Foot Standing Extremities (01/17/2018 8:40 AM MATERIAL ENGINEER) Anatomical Region Laterality Modality Lower Extremity Computed Radiography Specimen (Source) Anatomical Location Collection Method / Collectio n Time Received Time / Laterality Volume Impressions 01/17/2018 2:07 PM MATERIAL ENGINEER Impression: 1. Fusion instrumentation from T4 throug h L3 without evidence of hardware complication. 2. Mild convex right curvature of the th oracolumbar/lumbar spine with apex at T12. 3. No substantial global coronal imbalan ce. 4. Normal sagittal vertical axis. MADALYN ZARAGOZA MD Narrative 01/17/2018 2:07 PM MATERIAL ENGINEER Exam: XR SPINE COMPLETE SCOLIOSIS 2 VW, [...] No substantial global coronal imbalance. Sagittal Vertical [place] (A vertical line drawn from the center [...] No substantial global coronal imbalance. Sagittal Vertical [place] (A vertical line drawn from the center [...] (postural) documented in this encounter Care Teams Spring Layer Relationship Specialty Start Date End Date Keri Elias PCP - General Family Practice 03/12/15 9 MD Ira Glez David Wayne, MD Orthopedics 07/09/[address] [place] [address] Astrid Rios PA-C Physician Wireless Engineer Physician Wireless Engineer - 07/09/14 Surgical documented as of this encounter
--- OUTSIDE RECORDS SUMMARY | 2022-01-07 13:13 | XMS_ITS | Encounter Summary ---
:1980 Author Organization [place] Address [address] [facility] [place] [address] Care Team Providers Name Role Phone Bebeto Roth MD Unavailable Astrid Rios PA-C Unavailable Francisco Metz MD Primary Care Provider [phone] Encounter Details Date Type Department Care Team [...] on filedocumented in this encounter Care Teams Allocations Clerk Relationship Specialty Start Date End Date Francisco Metz PCP - General Family Practice 11/14/18 04/02/20 MD Stevie Bebeto Roth MD Orthopedics 07/09/14 [facility] [place] [address] Astrid Rios PA-C Physician Corporate Administrator Physician Corporate Administrator - 07/09/14 Surgical documented as of this encounter
--- OUTSIDE RECORDS SUMMARY | 2022-01-07 13:13 | XMS_ITS | Encounter Summary ---
:1980 Author Organization [place] Address [address] [place] [address] Care Team Providers Name Role Phone Bebeto Roth MD Unavailable Astrid Rios PA-C Unavailable Kenton Katz MD Unavailable Unavailable Karen Veliz DO Primary Care Provider Encounter Details Date Type Department Care Team Description 07/11/2020 Records - [facility] CONVERSION Provider, Histor ical Social History Tobacco [...] on filedocumented in this encounter Care Teams Electrical Experimental Mechanic Relationship Specialty Start Date End Date Karen Veliz DO PCP - General Family Medicine 04/03/[address] [place] [address] Bebeto Roth MD Orthopedics 07/09/[address] [place] [address] Astrid Rios PA-C Physician Agricultural Equipment Operator Physician Agricultural Equipment Operator - 07/09/14 Surgical Kenton Katz Assigned PCP 02/02/20 08/27/20 MD Feliberto NO INFO AVAILABLE documented as of this encounter
--- OUTSIDE RECORDS SUMMARY | 2022-01-07 13:13 | XMS_ITS | Encounter Summary ---
:1980 Author Organization [place] Address [address] [facility] [place] [address] Care Team Providers Name Role Phone Bebeto Roth MD Unavailable Astrid Rios PA-C Unavailable Francisco Metz MD Primary Care Provider Encounter Details Date Type Department Care Team Description 01/09/2019 Orders Only [facility] Flex Martell Iron deficie [facility] MD Tamar anemia, unspecified [address] [place], NO INFO AVAILABLE iron deficiency [address] 12/22/2021 anemia type (Primary [place], [place] [address] Dx) [phone] Social History Tobacco Use Types Packs/Day Years [...] Primary documented in this encounter Care Teams Flame Brazing Machine Operator Relationship Specialty Start Date End Date Francisco Metz PCP - General Family Practice 11/14/18 04/02/20 MD Stevie Bebeto Roth MD Orthopedics 07/09/[address] [place] [address] Astrid Rios PA-C Physician Geriatric Social Work Professor Physician Geriatric Social Work Professor - 07/09/14 Surgical documented as of this encounter
--- OUTSIDE RECORDS SUMMARY | 2022-01-07 13:13 | XMS_ITS | Encounter Summary ---
:1980 Author Organization [place] Address [facility] [address] Care Team Providers Name Role Phone Bebeto Roth MD Unavailable Astrid Rios PA-C Unavailable Keri Elias MD Primary Care Provider Unavailable Reason for Visit Diagnostic Imaging XR - Closed Specialty Diagnoses / Procedures Referred By Contact Refer red To Contact Diagnoses Scoliosis Bebeto Roth MD Procedures XR Six Foot Standing Extremities [address] [place], [place] [address] Referral ID Status Reason Start Date Expiration Date Visits Requ ested Visits Authorized [id number] Closed 04/17/2018 04/17/2019 1 1 Encounter Details Date Type Department Care Team Description 04/18/2018 Ancillary Procedure [facility] Chan Roth Xray MD Devan 9 [facility] [address] [place] [phone] Social History Tobacco Use Types Packs/Day Years [...] AM Scoliosis R esults for this EXTREMITIES SPORTS MEDICINE TRAINER procedure are i n the results section. documented in this encounter Results XR Six Foot Standing Extremities (04/18/2018 9:23 AM SPORTS MEDICINE TRAINER) Anatomical Region Laterality Modality Lower Extremity Computed Radiography Specimen (Source) Anatomical Location Collection Method / Collectio n Time Received Time / Laterality Volume Impressions 04/18/2018 3:19 PM SPORTS MEDICINE TRAINER Impression: 1. Fusion hardware from T4 through L3 wi thout evidence of hardware complication. 2. Mild convex right curvature of the th oracolumbar/lumbar spine with apex at T12. 3. No substantial global coronal imbalan ce. 4. Normal sagittal vertical axis. MADALYN ZARAGOZA MD Narrative 04/18/2018 3:19 PM SPORTS MEDICINE TRAINER Exam: XR SIX FOOT STANDING EXTREMITIES, XR [...] No substantial global coronal imbalance. Sagittal Vertical [place] (A vertical line drawn from the center [...] No substantial global coronal imbalance. Sagittal Vertical [place] (A vertical line drawn from the center [...] on filedocumented in this encounter Care Teams Applications Trainer Relationship Specialty Start Date End Date Keri Elias PCP - General Family Practice 03/12/15 9 MD Ira Glez David Wayne, MD Orthopedics 07/09/[address] [facility] [address] [place] [address] Astrid Rios PA-C Physician Research Librarian Physician Research Librarian - 07/09/14 Surgical documented as of this encounter
--- OUTSIDE RECORDS SUMMARY | 2022-01-07 13:13 | XMS_ITS | Encounter Summary ---
:1980 Author Organization [place] Address [address] [facility] [place] [address] Care Team Providers Name Role Phone Bebeto Roth MD Unavailable Astrid Rios PA-C Unavailable Francisco Metz MD Primary Care Provider [phone] Reason for Visit Reason Onset Date Comments Symptoms 02/18/2019 Encounter Details Date Type Department Care Team Description 02/18/2019 Telephone [facility] Family Medicine Francisco Metz, Symptoms Clinic [address] [place], [facility] [address] 5540 7 [place] [address] [phone] Social History Tobacco Use Types Packs/Day Years [...] size of golf balls, hgb is 11.7. [facility] tried contacting their OB provider to [...] going home, to be seen at our [facility] emergency department for a second opinion. RN inquired if she has a equipment driver, out of concern for potential dizziness. She has a equipment driver and will head to the [facility] ER. Alanna Sanders RN RIALS TECHNICIAN Telephone Encounter - Ursula Barnes - 02/18/2019 2:00 PM CST [facility] Family Medicine phone call message-patient [...] within 3 hours, unless emergent Primary language: Italian Quality Control Lab Technician needed? No Call taken on February 18, 2019 at 2:01 PM by Ursula Barnes RIALS TECHNICIAN documented in this encounter Plan of Treatment Not on filedocumented as of this encounter Visit Diagnoses Not on filedocumented in this encounter Care Teams Social Media Strategist Relationship Specialty Start Date End Date Francisco Metz PCP - General Family Practice 11/14/18 04/02/20 MD Stevie Bebeto Roth MD Orthopedics 07/09/[address] [place] [address] Astrid Rios PA-C Physician Stuffed Casing Tier Physician Stuffed Casing Tier - 07/09/14 Surgical documented as of this encounter
--- OUTSIDE RECORDS SUMMARY | 2022-01-07 13:13 | XMS_ITS | Encounter Summary ---
:1980 Author Organization [place] Address [address] [facility] [place] [address] Care Team Providers Name Role Phone Bebeto Roth MD Unavailable Astrid Rios PA-C Unavailable Keri Elias MD Primary Care Provider Unavailable Reason for Referral Diagnostic Imaging XR - Closed Specialty Diagnoses / Procedures Referred By Contact Refer red To Contact Diagnoses Scoliosis Kyphosis (acquired) (postural) Bebeto Roth MD Procedures XR Six Foot Standing Extremities [address] [place], [place] [address] Referral ID Status Reason Start Date Expiration Date Visits Requ ested Visits Authorized [id number] Closed 01/10/2018 01/10/2019 1 1 D CASHIER Diagnostic Imaging XR - Closed Specialty Diagnoses / Procedures Referred By Contact Refer red To Contact Diagnoses Scoliosis Kyphosis (acquired) (postural) Bebeto Roth MD Procedures XR Spine Complete Scoliosis [address] [place], [place] [address] Referral ID Status Reason Start Date Expiration Date Visits Requ ested Visits Authorized [id number] Closed 01/10/2018 01/10/2019 1 1 D CASHIER Encounter Details Date Type Department Care Team Description 01/10/2018 Orders Only [facility] Orthopaedic Bebeto Roth is (Primary Dx); Clinic MD Devan Kyphosis (acquired) (postural) [id number] [place] [address] [phone] Social History Tobacco Use Types Packs/Day Years [...] Complete Scoliosis 2 Views (01/17/2018 8:41 AM FIELD CASHIER) Anatomical Region Laterality Modality Spine Computed Radiography Specimen (Source) Anatomical Location Collection Method / Collectio n Time Received Time / Laterality Volume Impressions 01/17/2018 2:07 PM FIELD CASHIER Impression: 1. Fusion instrumentation from T4 throug h L3 without evidence of hardware complication. 2. Mild convex right curvature of the th oracolumbar/lumbar spine with apex at T12. 3. No substantial global coronal imbalan ce. 4. Normal sagittal vertical axis. MADALYN ZARAGOZA MD Narrative 01/17/2018 2:07 PM FIELD CASHIER Exam: XR SPINE COMPLETE SCOLIOSIS 2 VW, [...] No substantial global coronal imbalance. Sagittal Vertical [place] (A vertical line drawn from the center [...] No substantial global coronal imbalance. Sagittal Vertical [place] (A vertical line drawn from the center [...] Six Foot Standing Extremities (01/17/2018 8:40 AM FIELD CASHIER) Anatomical Region Laterality Modality Lower Extremity Computed Radiography Specimen (Source) Anatomical Location Collection Method / Collectio n Time Received Time / Laterality Volume Impressions 01/17/2018 2:07 PM FIELD CASHIER Impression: 1. Fusion instrumentation from T4 throug h L3 without evidence of hardware complication. 2. Mild convex right curvature of the th oracolumbar/lumbar spine with apex at T12. 3. No substantial global coronal imbalan ce. 4. Normal sagittal vertical axis. MADALYN ZARAGOZA MD Narrative 01/17/2018 2:07 PM FIELD CASHIER Exam: XR SPINE COMPLETE SCOLIOSIS 2 VW, [...] No substantial global coronal imbalance. Sagittal Vertical [place] (A vertical line drawn from the center [...] No substantial global coronal imbalance. Sagittal Vertical [place] (A vertical line drawn from the center [...] (postural) documented in this encounter Care Teams Flatwork Presser Relationship Specialty Start Date End Date Keri Elias PCP - General Family Practice 03/12/15 9 MD Ira Glez, Bebeto Hartman MD Orthopedics 07/09/14 [facility] [address] [address] Astrid Rios PA-C Physician Washroom Cleaner Physician Washroom Cleaner - 07/09/14 Surgical documented as of this encounter
--- OUTSIDE RECORDS SUMMARY | 2022-01-07 13:13 | XMS_ITS | Encounter Summary ---
:1980 Author Organization [place] Address [address] [facility] [place] [address] Care Team Providers Name Role Phone Bebeto Roth MD Unavailable Astrid Rios PA-C Unavailable Keri Elias MD Primary Care Provider Unavailable Encounter Details Date Type Department Care Team Description 01/19/2018 Orders Only [facility] Keri Elias Acne vu lgaris (Primary Medicine Clinic MD Newton Dx) [address] [place] [address], [address] [place], [place] [address] Social History Tobacco Use Types [...] acne documented in this encounter Care Teams Sunday School Missionary Relationship Specialty Start Date End Date Keri Elias PCP - General Family Practice 03/12/15 9 MD Ira Glez David Wayne, MD Orthopedics 07/09/[address] [place] [address] Astrid Rios PA-C Physician Independent Crop Consultant Physician Independent Crop Consultant - 07/09/14 Surgical documented as of this encounter
--- OUTSIDE RECORDS SUMMARY | 2022-01-07 13:13 | XMS_ITS | Encounter Summary ---
:1980 Author Organization [place] Address [address] [facility] [place] [address] Care Team Providers Name Role Phone Bebeto Roth MD Unavailable Astrid Rios PA-C Unavailable Kenton Katz MD Unavailable Unavailable Karen Veliz DO Primary Care Provider Encounter Details Date Type Department Care Team Description 07/12/2020 Records - [facility] CONVERSION Provider, Histor ical Social History [...] 12:00 AM Result s for this VIEWS MARINE EQUIPMENT ENGINEER procedure are i n the results section. documented in this encounter Results XR Knee Left 3 Views (03/10/2006 12:00 AM MARINE EQUIPMENT ENGINEER) Anatomical Region Laterality Modality Thigh, Knee, Leg Left Other Specimen (Source) Anatomical Location Collection Method / Collectio n Time Received Time / Laterality Volume Narrative 03/10/2006 12:00 AM MARINE EQUIPMENT ENGINEER See Historical Hospital Medical Record f or documentation Procedure Note Provider, Historical - 07/12/2020Formatt ing of this note might be different from the original. See Historical Hospital Medical Record f or documentation Historical Provider IMG DIAGNOSTIC IMAGING ORDER TAYLOR documented in this encounter Visit Diagnoses Not on filedocumented in this encounter Care Teams Medical Research Tech Relationship Specialty Start Date End Date Karen Veliz DO PCP - General Family Medicine 04/03/[address] [place] [address] Bebeto Roth MD Orthopedics 07/09/[address] [place] [address] Astrid Rios PA-C Physician Regulatory Compliance Coordinator Physician Regulatory Compliance Coordinator - 07/09/14 Surgical Kenton Katz Assigned PCP 02/02/20 08/27/20 MD Feliberto NO INFO AVAILABLE documented as of this encounter
--- OUTSIDE RECORDS SUMMARY | 2022-01-07 13:13 | XMS_ITS | Encounter Summary ---
:1980 Author Organization [place] Address [address] [facility] [place] [address] Care Team Providers Name Role Phone Bebeto Roth MD Unavailable Astrid Rios PA-C Unavailable Francisco Metz MD Primary Care Provider [phone] Reason for Referral Diagnostic Imaging XR (Routine) - Closed Specialty Diagnoses / Procedures Referred By Contact Refer red To Contact Diagnoses Adolescent idiopathic scoliosis of thoracolumbar region Bebeto Roth MD Procedures XR Spine Complete Scoliosis [address] [place], [place] [address] Referral ID Status Reason Start Date Expiration Date Visits Requ ested Visits Authorized [id number] Closed 12/31/2018 12/31/2019 1 1 PREPARATION WORKER Diagnostic Imaging XR (Routine) - Closed Specialty Diagnoses / Procedures Referred By Contact Refer red To Contact Diagnoses Adolescent idiopathic scoliosis of thoracolumbar region Bebeto Roth MD Procedures XR Six Foot Standing Extremities [address] [place], [place] [address] Referral ID Status Reason Start Date Expiration Date Visits Requ ested Visits Authorized [id number] Closed 12/31/2018 12/31/2019 1 1 PREPARATION WORKER Encounter Details Date Type Department Care Team Description 12/31/2018 Orders Only [facility] Orthopaedic Bebeto Roth is (Primary Dx); Clinic MD Devan Adolescent idiopathic scoliosis of [facility] [address] [facility] [address] [place] [id number] Social History Tobacco Use Types Packs/Day Years [...] idiopath ic Adolescent idiopathic scoliosis of thora [facility] Scoliosis (and kyphoscoliosis), idiopath ic documented in this encounter Care Teams Flower Picker Relationship Specialty Start Date End Date Francisco Metz PCP - General Family Practice 11/14/18 04/02/20 MD Stevie Bebeto Roth MD Orthopedics 07/09/14 [facility] [place] [address] Astrid Rios PA-C Physician Senior Technical Recruiter Physician Senior Technical Recruiter - 07/09/14 Surgical documented as of this encounter
--- OUTSIDE RECORDS SUMMARY | 2022-01-07 13:13 | XMS_ITS | Encounter Summary ---
:1980 Author Organization [place] Address [address] [place] [address]. [place] [address] Care Team Providers Name Role Phone Bebeto Roth MD Unavailable Astrid Rios PA-C Unavailable Francisco Metz MD Primary Care Provider [phone] Francisco Metz MD Unavailable [phone] Encounter Details Date Type Department Care Team Description 01/15/2020 Medical Correspondence [facility] Scan, ENDOCRINOLOGY Health Info Mgmt Non-Provider REFERRAL [facility] AND [address] [address] Social History Tobacco Use Types [...] on filedocumented in this encounter Care Teams Driller Portable Relationship Specialty Start Date End Date Francisco Metz PCP - General Family Practice 11/14/18 04/02/20 MD Stevie Bebeto Roth MD Orthopedics 07/09/[address] [place], [place] [address] Astrid Rios PA-C Physician Inspector Materials And Processes Physician Inspector Materials And Processes - 07/09/14 Surgical Francisco Metz Assigned PCP 07/04/19 02/01/20 MD Stevie [facility] [address] [address] [place] [address] documented as of this encounter
--- OUTSIDE RECORDS SUMMARY | 2022-01-07 13:13 | XMS_ITS | Encounter Summary ---
:1980 Author Organization [place] Address [address] [facility] [place] [address] Care Team Providers Name Role Phone Bebeto Roth MD Unavailable Astrid Rios PA-C Unavailable Francisco Metz MD Primary Care Provider [phone] Francisco Metz MD Unavailable [phone] Kenton Katz MD Unavailable Unavailable Karen Veliz DO Primary Care Provider Kenton Katz MD Unavailable Unavailable Karen Veliz DO Unavailable Reason for Visit Reason Onset Date Comments Referral 12/25/2019 Encounter Details Date Type Department Care Team Description 12/25/2019 Telephone [facility] Francisco Metz, Delores Norris MD [address] [address] [address] [place] [address] [phone] Social History Tobacco Use Types Packs/Day Years [...] referral. Would like it dated for 10/14/19 FLUME FEEDING MACHINE OPERATOR Telephone Encounter - Cherry Viera - 12/26/2019 12:49 PM CST Will forward to PCP to address. Please advise. Cherry Reyes Program Writer FLUME FEEDING MACHINE OPERATOR Telephone Encounter - RachelMay - 12/25/2019 3:35 PM CST [facility] Family Medicine phone call message - order or referral request from patient: Order or referral being requested: Referral to Physical Therapy At Location: [facility] Additional Details: KENNY Weems states [...] 11/10 Referral only -Specialty Physical Therapy Location [address] [address] [place] to leave a message on voice mail? Yes Primary language: Maltese Snowboard Instructor needed? No Call taken on December 25, 2019 at 3:35 PM by May Rachel Order request route to P SMI TRIAGE Referrals Route to P SMI (Green/Meriwether/Purple) ROD GREASER FLUME FEEDING MACHINE OPERATOR documented in this encounter Plan of Treatment Not on filedocumented as of this encounter Visit Diagnoses Not on filedocumented in this encounter Care Teams Portable Trackman Relationship Specialty Start Date End Date Francisco Metz PCP - General Family Practice 11/14/18 04/02/20 MD Stevie Karen Veliz PCP - General Family Medicine 04/03/[address] [place], [place] [id number] Bebeto Roth MD Orthopedics 07/09/[address] [place], [place] [address] Astrid Rios PA-C Physician Plant Associate Physician Plant Associate - 07/09/14 Surgical Francisco Metz Assigned PCP 07/04/19 02/01/20 MD Stevie [address] [place] [address] [place] [address] Kenton Katz Assigned PCP 02/02/20 08/27/20 MD Feliberto NO INFO AVAILABLE Kenton Katz Assigned Endocrinology 08/28/20 07/23/21 MD Feliberto Provider NO INFO AVAILABLE Karen Veliz, Assigned PCP 08/28/20 DO 2019 [place] [address] documented as of this encounter
--- OUTSIDE RECORDS SUMMARY | 2022-01-07 13:13 | XMS_ITS | Encounter Summary ---
:1980 Author Organization [place] Address [address] [facility] [place] [address] Care Team Providers Name Role Phone Bebeto Roth MD Unavailable Astrid Rios PA-C Unavailable Francisco Metz MD Primary Care Provider Reason for Visit Reason Onset Date Comments Call To Schedule Appointment 01/09/2019 NOB appt re quest Encounter Details Date Type Department Care Team Description 01/09/2019 Telephone [facility] [place], Call To Schedule Medicine Clinic KENNY Patterson Appointment (NOB appt [address] [place] [address], request ) [address] [place] [phone] Social History Tobacco Use Types Packs/Day Years [...] (this will be their primary OB provider). D SERGEANT Telephone Encounter - Yesenia Flowers RN - [...] call and close encounter. Yesenia Flowers RN D SERGEANT documented in this encounter Plan of Treatment Not on filedocumented as of this encounter Visit Diagnoses Not on filedocumented in this encounter Care Teams Gas Pump Attendant Relationship Specialty Start Date End Date Francisco Metz PCP - General Family Practice 11/14/18 04/02/20 MD Stevie Bebeto Roth MD Orthopedics 07/09/14 [facility] [place] [address] Astrid Rios PA-C Physician Pin Attacher Physician Pin Attacher - 07/09/14 Surgical documented as of this encounter
--- OUTSIDE RECORDS SUMMARY | 2022-01-07 13:13 | XMS_ITS | Encounter Summary ---
:1980 Author Organization [place] Address [address] [facility] [place] [address] Care Team Providers Name Role Phone Bebeto Roth MD Unavailable Astrid Rios PA-C Unavailable Keri Elias MD Primary Care Provider Unavailable Reason for Referral Diagnostic Imaging XR - Closed Specialty Diagnoses / Procedures Referred By Contact Refer red To Contact Diagnoses Bebeto Rene MD Procedures XR Six Foot Standing Extremities [address] [place], [place] [address] Referral ID Status Reason Start Date Expiration Date Visits Requ ested Visits Authorized [id number] Closed 04/17/2018 04/17/2019 1 1 [facility] Diagnostic Imaging XR - Closed Specialty Diagnoses / Procedures Referred By Contact Refer red To Contact Diagnoses Bebeto Rene MD Procedures XR Spine Complete Scoliosis 2 Views [address] [place], [place] [address] Referral ID Status Reason Start Date Expiration Date Visits Requ ested Visits Authorized [id number] Closed 04/17/2018 04/17/2019 1 1 L [facility] Encounter Details Date Type Department Care Team Description 04/17/[address] [facility] Orthopaedic Bebeto Roth is (Primary Dx) Clinic MD Devan 9 [facility] SE [address] [place] [address] [phone] Social History Tobacco Use Types Packs/Day Years [...] Resu lts for this SCOLIOSIS 2 VIEWS [facility] procedure are in the results section. XR SIX FOOT STANDING Routine 04/18/2018 9:23 AM Scoliosis R esults for this EXTREMITIES [facility] procedure are i n the results section. documented in this encounter Results XR Spine Complete Scoliosis 2 Views (04/18/2018 9:23 AM [facility]) Anatomical Region Laterality Modality Spine Computed Radiography Specimen (Source) Anatomical Location Collection Method / Collectio n Time Received Time / Laterality Volume Impressions 04/18/2018 3:19 PM [facility] Impression: 1. Fusion hardware from T4 through L3 wi thout evidence of hardware complication. 2. Mild convex right curvature of the th oracolumbar/lumbar spine with apex at T12. 3. No substantial global coronal imbalan ce. 4. Normal sagittal vertical axis. MADALYN ZARAGOZA MD Narrative 04/18/2018 3:19 PM [facility] Exam: XR SIX FOOT STANDING EXTREMITIES, XR [...] No substantial global coronal imbalance. Sagittal Vertical [place] (A vertical line drawn from the center [...] No substantial global coronal imbalance. Sagittal Vertical [place] (A vertical line drawn from the center [...] Six Foot Standing Extremities (04/18/2018 9:23 AM [facility] [employer] [facility]) Anatomical Region Laterality Modality Lower Extremity Computed Radiography Specimen (Source) Anatomical Location Collection Method / Collectio n Time Received Time / Laterality Volume Impressions 04/18/2018 3:19 PM [facility] Impression: 1. Fusion hardware from T4 through L3 wi thout evidence of hardware complication. 2. Mild convex right curvature of the th oracolumbar/lumbar spine with apex at T12. 3. No substantial global coronal imbalan ce. 4. Normal sagittal vertical axis. MADALYN ZARAGOZA MD Narrative 04/18/2018 3:19 PM [facility] Exam: XR SIX FOOT STANDING EXTREMITIES, XR [...] No substantial global coronal imbalance. Sagittal Vertical [place] (A vertical line drawn from the center [...] No substantial global coronal imbalance. Sagittal Vertical [place] (A vertical line drawn from the center [...] ic documented in this encounter Care Teams Doctor Of Nursing Practice Relationship Specialty Start Date End Date Keri Elias PCP - General Family Practice 03/12/15 9 MD Ira Glez David Wayne, MD Orthopedics 07/09/[address] [place] [address] Astrid Rios PA-C Physician Software Specialist Physician Software Specialist - 07/09/14 Surgical documented as of this encounter
--- OUTSIDE RECORDS SUMMARY | 2022-01-07 13:14 | XMS_ITS | Encounter Summary ---
:1980 Author Organization [place] Address [address] [facility] [place] [address] Care Team Providers Name Role Phone Bebeto Roth MD Unavailable Astrid Rios PA-C Unavailable Keri Elias MD Primary Care Provider Unavailable Reason for Visit Diagnostic Imaging XR - Closed Specialty Diagnoses / Procedures Referred By Contact Refer red To Contact Diagnoses S/P spinal fusion Bebeto Roth MD Procedures XR Spine Complete 2 Views [address] [place], [place] [address] Referral ID Status Reason Start Date Expiration Date Visits Requ ested Visits Authorized [id number] Closed 11/06/2017 11/06/2018 1 1 Encounter Details Date Type Department Care Team Description 12/13/[address] [facility] Imaging Bebeto Roth S/P spinal fusion Center Farhana MD Devan 9 [facility] [address] [place] [address] [phone] Social History Tobacco Use Types Packs/Day Years [...] No substantial global coronal imbalance. Sagittal Vertical [place] (A vertical line drawn from the center [...] No substantial global coronal imbalance. Sagittal Vertical [place] (A vertical line drawn from the center [...] status documented in this encounter Care Teams Flat Sheet Maker Relationship Specialty Start Date End Date Keri Elias PCP - General Family Practice 03/12/15 9 MD Ira Glez David Wayne, MD Orthopedics 07/09/[address] [place] [address] Astrid Rios PA-C Physician Phototypesetter Operator Physician Phototypesetter Operator - 07/09/14 Surgical documented as of this encounter
--- OUTSIDE RECORDS SUMMARY | 2022-01-07 13:14 | XMS_ITS | Encounter Summary ---
:1980 Author Organization [place] Address [address] [facility] [place] [address] Care Team Providers Name Role Phone Bebeto Roth MD Unavailable Astrid Rios PA-C Unavailable Keri Elias MD Primary Care Provider Unavailable Encounter Details Date Type Department Care Team Description 09/29/2017 [facility]est[facility] W[facility]ria MD [address] [facility] [address] [place] [address] Assessment Center Cameron Manjarrez APRN [facility] [address] [place] [address] [facility] 5th [place] [address] Anesthesia Record Procedure Summary Procedure [...] Anesthesia Preprocedure Evaluation - Cameron Manjarrez APRN COMBINATION TECHNICIAN - 09/29/2017 10:14 AM CDT Anesthesia Evaluation [...] Antibody Screen: Neg Test Valid Only At: [facility] Specimen Expires: 10/02/2017 09/29/2017 12:11 Color Urine: Yellow Appearance Urine: Clear Glucose Urine: Negative Bilirubin Urine: Negative Ketones Urine: Negative Specific [place] Urine: 1.013 pH Urine: 6.0 Protein Albumin Urine: Negative Urobilinogen mg/dL: 0.0 Nitrite Urine: Negative Blood Urine: Large (A) Leukocyte Esterase Urine: Negative Source: Midstream Urine WBC Urine: 1 RBC Urine: 3 (H) Squamous Epithelial /HPF Urine: 3 (H) Transitional Epi: <1 (A) Mucous Urine: Present (A) PAC Discussion and Assessment ASA Classification: 2 Case is suitable for: [place] Anesthetic techniques and relevant risks discussed: GA Invasive monitoring and risk discussed: Yes Types: Possibility and Risk of blood transfusion discussed: Yes NPO instructions given: Additional anesthetic preparation and risks discussed: Needs early admission to pre-op area: Other: PAC Resident/ASSOCIATE CHEMIST Anesthesia Assessment: Azul Garg is a 37 [...] on filedocumented in this encounter Care Teams Credit Charge Authorizer Relationship Specialty Start Date End Date Madlon-Brittnee, Keri PCP - General Family Practice 03/12/15 9 MD Ira Glez David Wayne, MD Orthopedics 07/09/[address] [facility] [address] Astrid Rios PA-C Physician Breastfeeding Educator Physician Breastfeeding Educator - 07/09/14 Surgical documented as of this encounter
--- OUTSIDE RECORDS SUMMARY | 2022-01-07 13:14 | XMS_ITS | Encounter Summary ---
:1980 Author Organization [place] Address [facility] [place] [address] Care Team Providers Name Role Phone Bebeto Roth MD Unavailable Astrid Rios PA-C Unavailable Keri Elias MD Primary Care Provider Unavailable Reason for Visit Reason Comments Surgical Followup 7 wk pop DOS 10/14/17 extensio n of thoracic fusion Surgical Followup Encounter Details Date Type Department Care Team Description 12/13/2017 Office Visit [facility] Orthopaedic Bebeto Roth S/P spi nal fusion Clinic MD Devan (Primary Dx) [address] [place] [address] [address] [place] [address] [phone] Social History Tobacco Use Types Packs/Day Years [...] Marjan Morataya - 12/13/2017 3:00 PM CDT [facility] Orthopedics Bebeto Roth MD 12/13/2017 [...] denies problems with the incision. KYLEE: 24% [id number]: 29 Pain scale: 4 Physical Examination: Ht [...] MD: Keri Elias Ref. MD: Self Referred Supervisor Pipeline Maintenance? 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 Work [...] status documented in this encounter Care Teams Elementary Secretary Relationship Specialty Start Date End Date Keri Elias PCP - General Family Practice 03/12/15 9 MD Ira Glez David Wayne, MD Orthopedics 07/09/[address] [facility] [place] [address] Astrid Rios PA-C Physician Nurses' Aide Physician Nurses' Aide - 07/09/14 Surgical documented as of this encounter
--- OUTSIDE RECORDS SUMMARY | 2022-01-07 13:14 | XMS_ITS | Encounter Summary ---
:1980 Author Organization [place] Address [address] [place] [address] Care Team Providers Name Role Phone Bebeto Roth MD Unavailable Astrid Rios PA-C Unavailable Keri Elias MD Primary Care Provider Unavailable Reason for Visit Reason Onset Date Comments Forms 10/05/2017 FMLA paperwork f/u Encounter Details Date Type Department Care Team Description 10/05/2017 Telephone [facility] Orthopaedic Bebeto Roth Forms ( FMLA paperwork Clinic MD Devan f/u) [address] [place] [address] [id number] Social History Tobacco Use Types Packs/Day Years Used Date Smoking Tobacco: Never Smokeless Tobacco: Never Alcohol Use Standard Drinks/Week Comments No 0 (1 standard drink = 0.6 oz pure alcoho l) Sex Assigned at Date Recorded Not on file documented as of this encounter Miscellaneous Notes Telephone Encounter - Miguelina Ward LPN - 10/05/2017 9:47 AM CDT Advised patient to call Dr. Roth's executive secretary, Gavi, regarding FMLA paperwork. Number provided. [...] on filedocumented in this encounter Care Teams Abseiling Instructor Relationship Specialty Start Date End Date Keri Elias PCP - General Family Practice 03/12/15 9 MD Ira Glez David Wayne, MD Orthopedics 07/09/[address] [place] [id number] Astrid Rios PA-C Physician Reciprocating Drill Operator Physician Reciprocating Drill Operator - 07/09/14 Surgical documented as of this encounter
--- OUTSIDE RECORDS SUMMARY | 2022-01-07 13:14 | XMS_ITS | Encounter Summary ---
:1980 Author Organization [place] Address [address] [facility] [place] [address] Care Team Providers Name Role Phone Bebeto Roth MD Unavailable Astrid Rios PA-C Unavailable Keri Elias MD Primary Care Provider Unavailable Reason for Visit Reason Onset Date Comments Refill Request 11/06/2017 Encounter Details Date Type Department Care Team Description 11/06/2017 [facility] Orthopaedic Clinic Bebeto Roth, Refill Request [address] [facility] 4th Floor [address] [place], [place] [phone] [place] [address] (Wo rk) Social History Tobacco [...] 11:39 AM CDT Refilled to [facility] in [place]. Telephone Encounter - Joe Deng - 11/09/2017 11:30 AM CDT [facility] Call Center Phone Message May a detailed message be left on voicemail: yes Reason for Call: Medication Refill Request Has the patient contacted the pharmacy for the refill? Yes Name of medication being requested: Kirsten Provider who prescribed the medication: Bebeto Roth Pharmacy: Please mail to pt Date medication is needed: Not a cheney Action Taken: Message routed to: [facility] ([facility]): Orthopedics Telephone Encounter - Katy [...] order and will be brought down to [facility] pharmacy for patient to brick picker this afternoon. Telephone Encounter - Yamilka Rader - 11/06/2017 7:17 AM CDT [facility] Phone Message May a detailed message be left on voicemail: yes Reason for Call: Medication Refill Request Has the patient contacted the pharmacy for the refill? Yes Name of medication being requested: methocarbamol (ROBAXIN) 500 MG tablet & oxyCODONE IR (ROXICODONE) 10 MG tablet Provider who prescribed the medication: Dr. Roth Pharmacy: [facility] - Please call pt when ready for brick picker - Will be out by tomorrow Date medication is needed: KEMI Action Taken: Message routed to: [facility] ([facility]): Orthopedics documented in this encounter Plan of Treatment Not on filedocumented as of this encounter Visit Diagnoses Diagnosis S/P spinal fusion Arthrodesis status documented in this encounter Care Teams Clark Driver Relationship Specialty Start Date End Date Keri Elias PCP - General Family Practice 03/12/15 9 MD Ira Glez David Wayne, MD Orthopedics 07/09/[address] [place] [address] Astrid Rios PA-C Physician Exercise Instruct Physician Exercise Instruct - 07/09/14 Surgical documented as of this encounter
--- OUTSIDE RECORDS SUMMARY | 2022-01-07 13:14 | XMS_ITS | Encounter Summary ---
:1980 Author Organization [place] Address [address] [place] [address] Care Team Providers Name Role Phone Bebeto Roth MD Unavailable Astrid Rios PA-C Unavailable Keri Elias MD Primary Care Provider Unavailable Reason for Visit Reason Onset Date Comments Opioid Refill 11/22/2017 Oxycodone and ROBAXI N Encounter Details Date Type Department Care Team Description 11/22/2017 [facility] Bebeto Roth Opioid Refill Clinic MD Devan (Oxycodone and ROBAXIN) [address] [place] [address] [phone] Social History Tobacco Use Types Packs/Day Years Used Date Smoking Tobacco: Never Smokeless Tobacco: Never Alcohol Use Standard Drinks/Week Comments No 0 (1 standard drink = 0.6 oz pure alcoho l) Sex Assigned at Date Recorded Not on file documented as of this encounter Miscellaneous Notes Telephone Encounter - Rm Aries Skinner - 11/22/2017 10:46 AM CDT [facility] Call Center Phone Message May a [...] routed to: [facility] I called pt. Back. Spine surgery [...] status documented in this encounter Care Teams Health Data Analyst Relationship Specialty Start Date End Date Keri Elias PCP - General Family Practice 03/12/15 9 MD Ira Glez David Wayne, MD Orthopedics 07/09/[address] [place] [address] Astrid Rios PA-C Physician Networking Technician Physician Networking Technician - 07/09/14 Surgical documented as of this encounter
--- OUTSIDE RECORDS SUMMARY | 2022-01-07 13:14 | XMS_ITS | Encounter Summary ---
:1980 Author Organization [place] Address [address] [place] [address]. [place] [address] Care Team Providers Name Role Phone Bebeto Roth MD Unavailable Astrid Rios PA-C Unavailable Keri Elias MD Primary Care Provider Unavailable Reason for Visit Auth/Cert Specialty Diagnoses / Procedures Referred By Contact Refer red To Contact Surgery Diagnoses Scoliosis Kyphosis Ur Periop Procedures [facility] [address] [place] [phone] Phone: Fax: Referral ID Status Reason Start Date Expiration Date Visits Requ ested Visits Authorized [id number] 1 1 Encounter Details Date Type Department Care Team Description 10/23/2017 Anesthesia Event [facility] Sarah Parry MD [address] [place], [place] [address] PeriOp Services Bryan Tejeda, PHARMACEUTICAL LABORATORY TECHNICIAN FIRST LINE PRODUCTION SUPERVISOR [address] [place] [id number] [place] [phone] Anesthesia Record Procedure Summary Procedure Name [...] to auscultation ?? Other findings: Results for JOCELNI PINEDO ( ) as of 09/29/2017 13:47 [...] Screen: Neg Test Valid Only At: [facility]. Specimen Expires: 10/02/2017 ?? 09/29/2017 12:11 Color Urine: Yellow Appearance Urine: Clear Glucose Urine: Negative Bilirubin Urine: Negative Ketones Urine: Negative Specific [place] Urine: 1.013 pH Urine: 6.0 Protein Albumin Urine: Negative Urobilinogen mg/dL: 0.0 Nitrite Urine: Negative Blood Urine: Large (A) Leukocyte Esterase Urine: Negative Source: Midstream Urine WBC Urine: 1 RBC Urine: 3 (H) Squamous Epithelial /HPF Urine: 3 (H) Transitional Epi: <1 (A) Mucous Urine: Present (A) ? PAC Discussion and Assessment ?? ASA Classification: 2 Case is suitable for: [place] Anesthetic techniques and relevant risks discussed: GA Invasive monitoring and risk discussed: Yes Types: Possibility and Risk of blood transfusion discussed: Yes NPO instructions given: Additional anesthetic preparation and risks discussed: Needs early admission to pre-op area: Other: ?? PAC Resident/ORDER DESK CLERK Anesthesia Assessment: Jocelin Garg is a 37 yo female scheduled for Extension Of Fusion Thoracic 10- Thoracic /, [facility] Osteotomies Thoracic 1-10 on 10/23/2017 [...] Screen: Neg Test Valid Only At: [facility]. Specimen Expires: 10/02/2017 ?? 09/29/2017 12:11 Color Urine: Yellow Appearance Urine: Clear Glucose Urine: Negative Bilirubin Urine: Negative Ketones Urine: Negative Specific [place] Urine: 1.013 pH Urine: 6.0 Protein Albumin Urine: Negative Urobilinogen mg/dL: 0.0 Nitrite Urine: Negative Blood Urine: Large (A) Leukocyte Esterase Urine: Negative Source: Midstream Urine WBC Urine: 1 RBC Urine: 3 (H) Squamous Epithelial /HPF Urine: 3 (H) Transitional Epi: <1 (A) Mucous Urine: Present (A) ? PAC Discussion and Assessment ?? ASA Classification: 2 Case is suitable for: [place] Anesthetic techniques and relevant risks discussed: GA Invasive monitoring and risk discussed: Yes Types: Possibility and Risk of blood transfusion discussed: Yes NPO instructions given: Additional anesthetic preparation and risks discussed: Needs early admission to pre-op area: Other: ?? PAC Resident/ORDER DESK CLERK Anesthesia Assessment: Jocelin Garg is a 37 [...] Patient and Spouse.. Plan - GETA with [facility] (pt is anterior) for Optical Tracking System [...] Intra-procedure documented in this encounter Care Teams Support Coordinator Relationship Specialty Start Date End Date Keri Elias PCP - General Family Practice 03/12/15 9 MD Ira Glez David Wayne, MD Orthopedics 07/09/14 [facility] [place] [address] Astrid Rios PA-C Physician Blade Operator Physician Blade Operator - 07/09/14 Surgical documented as of this encounter
--- OUTSIDE RECORDS SUMMARY | 2022-01-07 13:14 | XMS_ITS | Encounter Summary ---
:1980 Author Organization [place] Address [facility] 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 Myles Romero S/P spinal fusion 10/27/2017 [facility] Unit [facility]A MD Devan (Primary Dx) [address] [place] [address] [place] [address] [address] [place], [place] [id number] Social History Tobacco Use Types Packs/Day Years [...] discharge. [facility]. Pain is now controlled on oral [...] 12/13/2017 3:00 PM Myles De Oliveira MD [facility] 01/17/2018 7:45 AM Myles De Oliveira MD [facility] Orthopaedic Surgery appointments are at the [facility] [place] ([address] [place] [address]). Call [phone] to schedule a follow-up appointment at this [...] CHANGED Details fluticasone (FLONASE) 50 MCG/ACT spray Parsons 1-2 sprays into both nostrils daily, Disp-16 g, R-3, E-Prescribe pseudoePHEDrine (SUDAFED) 120 MG 12 hr tablet Take 120 mg by mouth every morning, Historical STOP taking these medications ibuprofen (ADVIL/MOTRIN) 600 MG tablet Comments: Reason for Stopping: Discharge Procedure Orders Reason for your hospital stay Order Comments: You were hospitalized after surgery for pain control and therapy. Adult [facility] Follow-up and recommended labs and tests Order Comments: You have an appointment with Dr. De Oliveira on 12/13/17. [facility] [place] ([address] [place] [address]). Call [phone] to schedule a follow-up appointment at this [...] [facility] 7 [facility] [place] ([address] [place] [address]). -Pain control: Take medication as prescribed, but [...] help keep you hydrated. -CALL OUR CLINIC ([phone] during regular office hours, or [phone] for the on-call residentMD for questions - [...] Start Date End Date fluticasone (FLONASE) 50 Parsons 1-2 sprays 16 g 3 07/05 MCG/ACT [...] prior to contacting the Orthopaedic Surgery resident education reviewer. Thank you! T Sunni Hernandez MD - 10/26/2017 1:21 PM CDT Urinary retention No BM yet Ambulating with PT Last night nursing notes reviewed No cp No sob No fever No chills No vomiting No loss of consciousness Vital signs: Temp: 99.1 ??F (37.3 ??C) Temp src: Oral BP: 97/50 Pulse: 114 Heart Rate: 103 Resp: 16 SpO2: 98 % M5Kbsigu: None (Room air) Oxygen Delivery: 6 LPM [...] Spoke with ortho and care team rounds T Nafisa Rivera RN - 10/26/2017 10:58 AM CDT Paintless Dent Repair Technician Progress Note Admission Date/Time: 10/23/2017 Attending MD: [...] Anticipated Discharge Plan: home Angelica PADILLA RN [facility] RN Paintless Dent Repair Technician 10A E-mail: [email or web address] Pager: [phone] To contact weekend RNCC, dial * [phone] and enter pager number [phone] at prompt. This pager can not be [...] prior to contacting the Orthopaedic Surgery resident education reviewer. Thank you! Sunni Hernandez MD - 10/25/2017 [...] Mobility Skill: Sit to Supine Level of [place]: Sit/Supine stand-by assist Bed Mobility Skill: Supine to Sit Level of [place]: Supine/Sit stand-by assist Transfer Skill: Bed to Chair/Chair to Bed Level of [place]: Bed to Chair stand-by assist Assistive Device - Transfer Skill Bed to Chair Chair to Bed Rehab Eval standard walker Transfer Skill: Sit to Stand Level of [place]: Sit/Stand stand-by assist Assistive Device for Transfer: Sit/Stand standard walker Transfer Skill: Toilet Transfer Level of [place]: Toilet stand-by assist Upper Body Dressing Level of [place]: Dress Upper Body independent Lower Body Dressing Level of [place]: Dress Lower Body stand-by assist Toileting Level of [place]: Toilet stand-by assist Grooming Level of [place]: Grooming independent Eating/Self Feeding Level of [place]: Eating independent Activities of Daily Living Analysis Impairments Contributing to Impaired Activities of Daily Living pain;post surgical precautions;ROM decreased Clinical Impression Criteria for Skilled Therapeutic Interventions Met evaluation only Risks and Benefits of Treatment have been explained. Yes Patient, Family & other staff in agreement with plan of care Yes [facility] AM-PAC TM 6 Clicks ?? 2016, Trustees of [facility], under license to [employer]. All rights reserved. 6 Clicks Short Forms Daily Activity Inpatient Short Form [facility] AM-PAC??? 6 Clicks Daily Activity Inpatient Short [...] prior to contacting the Orthopaedic Surgery resident education reviewer. Thank you! Sunni Otoole MD - 10/24/2017 [...] Pericolace . Add miralax Discuss with ortho STORE PRODUCT DEMONSTRATOR and care team rounds Tala Roche Pt, PT - 10/24/2017 10:19 AM CDT 10/24/17 1004 Quick Adds Type of Visit Initial PT Evaluation Operations Executive Operations Executive Present no Language Zimbabwean Living Environment Lives With child(gabino), dependent;significant other [...] in agreement with plan of care Yes [facility] AM-PAC TM 6 Clicks ?? 2016, Trustees of [facility], under license to [employer]. All rights reserved. 6 Clicks Short Forms Basic Mobility Inpatient Short Form [facility] AM-PAC??? 6 Clicks V.2 Basic Mobility Inpatient [...] prior to contacting the Orthopaedic Surgery resident education reviewer. Thank you! documented in this encounter Consult Notes Michael Hilario MD - 10/23/2017 3:54 PM CDTAssociated Order(s): INTERNAL MEDICINE ADULT IP CONSULT FOR [facility] INTERNAL MEDICINE CONSULTATION REQUESTING PHYSICIAN: Myles De Oliveira MD REASON FOR CONSULTATION: For recommendations for medical comorbidities. Assessment Jocelin Garg is a 37 year old female admitted on 10/23/2017 for spinal Sx 1) Extension Of Fusion Thoracic 4-Thoracic 10, Rivera Khan Osteotomies Thoracic 6-10 post op D# 0 Hemodynamics: stable - continue on IV fluids, until adequate PO. Analgesia: adequate , on DAUB COLOR MIXER Antiemetics: as per protocol. If does not [...] with any questions. Michael Hilario MD (Pager- [phone]) Internal Medicine/ Hospitalist CHIEF COMPLAINT: 37 year [...] to Encounter: fluticasone (FLONASE) 50 MCG/ACT spray Parsons 1-2 sprays into both nostrils daily (Patient taking differently: Parsons 1-2 sprays into both nostrils as needed [...] a 37 year old female who speaks Zimbabwean. Procedure Procedure(s): Extension Of Fusion Thoracic 4-Thoracic [...] mg (total dose) last given at 1245 DAUB COLOR MIXER / epidural Yes. DAUB COLOR MIXER - hydromorphone (Dilaudid) Capnography Yes Telemetry ECG Rhythm: Normal sinus rhythm Inpatient Cross Country And Track And Field Coach Ordered? No Labs Glucose Lab Results Component Value Date GLC 90 09/29/2017 Hgb Lab Results Component Value Date HGB 12.5 09/29/2017 INR Lab Results Component Value Date INR 1.02 09/29/2017 PACU Imaging Not applicable Wound/Incision Incision/Surgical Site 10/23/17 Back (Active) Incision Assessment [facility] 10/23/2017 11:18 AM Closure Approximated;Liquid bandage 10/23/2017 11:18 AM Dressing Intervention Clean, dry, intact;New dressing applied 10/23/2017 11:18 AM Number of days:0 CMS Peripheral Neurovascular WDL: WD (10/23/17602) All Extremities Temperature: warm (10/23/17602) All Extremities Color: no discoloration (10/23/17602) LLE Sensation: tingling present (intermittent and on top of toes) (10/23/17602) RLE Sensation: tingling present (intermittent and on top of toes) (10/23/17602) Equipment Not applicable Other LDA IV Access Peripheral IV 10/23/17 Left Lower forearm (Active) Site Assessment [facility] 10/23/2017 12:07 PM Line Status Saline locked 10/23/2017 12:07 PM Phlebitis Scale 0-->no symptoms 10/23/2017 12:07 PM Infiltration Scale 0 10/23/2017 12:07 PM Infiltration Site Treatment Method None 10/23/2017 6:48 AM Extravasation? No 10/23/2017 6:48 AM Number of days:0 Peripheral IV 10/23/17 Right Lower forearm (Active) Site Assessment [facility] 10/23/2017 12:07 PM Line Status Infusing 10/23/2017 12:07 PM Phlebitis Scale 0-->no symptoms 10/23/2017 12:07 PM Infiltration Scale 0 10/23/2017 12:07 PM Number of days:0 Blood Products Not applicable EBL 310 mL Intake/Output Date 10/23/17 0700 - 10/24/17 0659 Shift 3494-1982 3132-5962 6986-3937 24 Hour Total I N T A K E I.V. 1450 1450 Shift Total (mL/kg) 1450 (21.05) 1450 (21.05) O U T P U T Urine 100 100 Blood 310 310 Shift Total (mL/kg) 410 (5.95) 410 (5.95) Weight (kg) 68.9 68.9 68.9 68.9 Drains / Florez Closed/Suction Drain Back Accordion 10 Kazakh (Active) Site Description [facility] 10/23/2017 12:07 PM Dressing Status Normal: Clean, Dry & Intact 10/23/2017 12:07 PM Drainage Appearance Normal 10/23/2017 12:07 PM Number of days:0 Urethral Catheter Latex 16 fr (Active) Tube Description [facility] 10/23/2017 12:07 PM Collection [...] needing completion None René Esposito, RN ASCOM [id number] documented in this encounter Miscellaneous Notes Plan [...] goal(s). See goals on Care Plan in [facility] electronic health record for goal details. Goals met Therapy recommendation(s): Continue home exercise program. Plan of Care - Jocelin Mayes, PT - 10/26/2017 10:32 AM CDT Problem: Patient Care Overview Goal: Plan of Care/Patient Progress Review Junior Designer PT Patient plan for discharge: Home Current [...] Overview Goal: Plan of Care/Patient Progress Review Junior Designer PT Patient plan for discharge: Home with [...] Additional Info: Pt very anxious throughout shift, service writer listened to pt's concerns and addressed [...] had oxycodone dose increased to 10-15mg. Dilaudid DAUB COLOR MIXER discontinued this am.Offered ice packs but pt [...] Overview Goal: Plan of Care/Patient Progress Review Junior Designer PT Patient plan for discharge: Home with [...] Care/Patient Progress Review A/O x 4. Increased DAUB COLOR MIXER from 0.2 to 0.3 due to inadequate [...] 1 Skin: Intact Pain: Moderate. Manageable w/ DAUB COLOR MIXER pump. Neuro/CMS: Intact, no numbness or tingling reported Dressing(s): Posterior back CDI Diet: Clear liquids, tolerating well. Equipment: CAPNO DAUB COLOR MIXER pump IV's/Drains: PIV R hand infusing NS 100mL/hr and DAUB COLOR MIXER pump Hemovac - 0ccs Florez - patent Plan: Continue to monitor Additional Info: Discontinue DAUB COLOR MIXER pump POD #1 Discontinue florez POD #1 [...] of surgical incisions and hemovac replacement Pain: DAUB COLOR MIXER dilaudid on and verified. Pt has discomfort in lower back. And bladder Neuro/CMS: Intact denies numbness and tingling. Prior to surgery pt had intermittently tingling in BL feet. Dressing(s): CDI Aquacel posterior from neck down to Buttocks. hemovac in place CDI. Diet: C.liq. Nausea Zofran given LDA: PIV left hand running LR and Dilaudid DAUB COLOR MIXER. R hand piv SL. Hemovac in place and patent. Aquacel. Florez catheter. Equipment: IV pole, PCDs, DAUB COLOR MIXER pump. CAPNO Plan: TBT Additional Info: Pt [...] Myles De Oliveira MD N/A None available Napper Fixer(s): Huong Stock PA-C Anesthesia: General Estimated blood [...] to PACU Plan: Pain: Scheduled Tylenol, Dilaudid DAUB COLOR MIXER, oxycodone PRN, Valium PRN Activity: Weight bearing [...] in 5-7 days. Huong Stock PA-C Pager: [phone] If no answer or after 4pm, please page the education reviewer ortho resident. Op Note - Myles De [...] surgery SURGEON: Myles De Oliveira Jr., MD SOFTWARE RELEASE ENGINEER: Huong Stock PA-C. No qualified resident was [...] then turned in position prone on a [employer] 4-wood experimental mechanic frame. She was prepared and draped [...] the O- arm and transferred to the [employer] image-guided workstation. This was now used to place pedicle screws in a navigated fashion. All the screws were from the [employer]. These were titanium screws with [...] MD MT: CC Name: JOCELIN PINEDO Account: [id number] : 1980 Procedure Date: 10/23/2017 Document: [id number] cc: Copy for Patient Keri Beaulieu MD documented in this encounter Plan [...] spine. Positive global coronal imbalance. Sagittal Vertical [place] (A vertical line drawn from the center [...] spine. Positive global coronal imbalance. Sagittal Vertical [place] (A vertical line drawn from the center [...] Component Value Ref Test Analysis Performed At [facility] Range Method Time Signature Color Urine Light Yellow 10/26/2017 [facility] 3:08 PM T [facility] Appearance Urine Clear 10/26/2017 [facility] F 3:08 PM T [facility] Glucose Urine Negative NEG^Nega 10/26/2017 [facility] tive 3:08 PM T [facility] mg/dL [facility] Bilirubin Urine Negative NEG^Nega 10/26/2017 [facility] tive 3:08 PM T [facility] Ketones Urine 10 (A) NEG^Nega 10/26/2017 [facility] tive 3:08 PM T [facility] mg/dL [facility] Specific Muir 1.005 1.003 - 10/26/2017 [facility] Urine 1.035 3:08 PM [facility] Blood Urine Moderate (A) NEG^Nega 10/26/2017 [facility] tive 3:08 PM T [facility] pH Urine 6.5 5.0 - 10/26/2017 [facility] 7.0 pH 3:08 PM [facility] Protein Albumin Negative NEG^Nega 10/26/2017 [facility] Urine tive 3:08 PM [facility] mg/dL [facility] Urobilinogen Normal 0.0 - 10/26/2017 [facility] mg/dL 2.0 3:08 PM [facility] mg/dL [facility] Nitrite Urine Negative NEG^Nega 10/26/2017 [facility] tive 3:08 PM T [facility] Leukocyte Negative NEG^Nega 10/26/2017 [facility] Esterase Urine tive 3:08 PM T [facility] Source Unspecified 10/26/2017 [facility] Urine 2:54 PM [facility] WBC Urine 1 0 - 5 10/26/2017 [facility] /HPF 3:08 PM [facility] RBC Urine 1 0 - 2 10/26/2017 [facility] /HPF 3:08 PM [facility] Squamous <1 0 - 1 10/26/2017 [facility] Epithelial /HPF /HPF 3:08 PM [facility] Specimen (Source) Anatomical Collection Method Collection Time Re ceived Time Location / / Volume Laterality Unspecified Urine URINE SPECIMEN 10/26/2017 2:40 10/26 2:54 OBTAINED BY CLEAN PM CDT PM CDT CATCH PROCEDURE / Unknown Sunni Hernandez MD LAB - URINE ORDERABLES Performing Organization Address City/[facility]/ZIP Code Phon e Number [address] [address] [facility] (ABNORMAL) CBC with platelets (10/26/2017 8:00 AM CDT) [facility] gist Method Time Signature WBC 6.1 4.0 - 11.0 10/26/2017 [facility] 10e9/L 8:24 AM CDT [facility] RBC Count 3.88 3.8 - 5.2 10/26/2017 [facility] 10e12/L 8:24 AM CDT [facility] Hemoglobin 9.9 (L) 11.7 - 10/26/2017 [facility] 15.7 g/dL 8:24 AM CDT [facility] Hematocrit 30.5 (L) 35.0 - 10/26/2017 [facility] 47.0 % 8:24 AM CDT [facility] MCV 79 78 - 100 10/26/2017 [facility] fl 8:24 AM CDT [facility] MCH 25.5 (L) 26.5 - 10/26/2017 [facility] 33.0 pg 8:24 AM CDT [facility] MCHC 32.5 31.5 - 10/26/2017 [facility] 36.5 g/dL 8:24 AM CDT [facility] RDW 13.3 10.0 - 10/26/2017 [facility] 15.0 % 8:24 AM CDT [facility] Platelet Count 244 150 - 450 10/26/2017 [facility] 10e9/L 8:24 AM CDT [facility] Specimen Anatomical Collection Method Collection Time Receive d Time (Source) Location / / Volume Laterality Blood specimen 10/26/2017 8:00 AM 018 8:01 (specimen) CDT AM CDT Huong Stock PA-C LAB - BLOOD ORDERABLES Performing Organization Address City/State/ZIP Code Phon e Number [address] [place] [address] [facility] (ABNORMAL) Glucose by meter (10/25/2017 8:34 AM CDT) P athologist Signature Glucose 114 (H) 70 - 99 10/25/2017 POINT OF CARE mg/dL 8:46 AM CDT TEST, GLUCOSE Specimen Anatomical Collection Method Collection Time Receive d Time (Source) Location / / Volume Laterality 10/25/2017 8:34 AM 8 8:46 CDT AM CDT Myles De Oliveira MD [facility] - [facility] POCT Performing Organization Address City/State/ZIP Code Phon e Number [facility] POINT OF CARE TEST, GLUCOSE POINT OF CARE TEST, GLUCOSE (ABNORMAL) CBC with platelets (10/25/2017 6:26 AM CDT) Patholo gist Method Time Signature WBC 9.9 4.0 - 11.0 10/25/2017 [facility] 10e9/L 6:34 AM CDT [facility] RBC Count 4.03 3.8 - 5.2 10/25/2017 [facility] 10e12/L 6:34 AM CDT [facility] Hemoglobin 10.2 (L) 11.7 - 10/25/2017 [facility] 15.7 g/dL 6:34 AM CDT [facility] Hematocrit 32.0 (L) 35.0 - 10/25/2017 [facility] 47.0 % 6:34 AM CDT [facility] MCV 79 78 - 100 10/25/2017 [facility] fl 6:34 AM CDT [facility] MCH 25.3 (L) 26.5 - 10/25/2017 [facility] 33.0 pg 6:34 AM CDT [facility] MCHC 31.9 31.5 - 10/25/2017 [facility] 36.5 g/dL 6:34 AM CDT [facility] RDW 13.5 10.0 - 10/25/2017 [facility] 15.0 % 6:34 AM CDT [facility] Platelet Count 248 150 - 450 10/25/2017 [facility] 10e9/L 6:34 AM CDT [facility] Specimen Anatomical Collection Method Collection Time Receive d Time (Source) Location / / Volume Laterality Blood specimen 10/25/2017 6:26 AM 018 6:28 (specimen) CDT AM CDT Huong Stock PA-C LAB - BLOOD ORDERABLES Performing Organization Address City/[facility]/ZIP Code Phon e Number [address] [address] [facility] (ABNORMAL) CBC with platelets (10/24/2017 7:05 AM CDT) [facility] gist Method Time Signature WBC 8.8 4.0 - 11.0 10/24/2017 [facility] 10e9/L 7:17 AM CDT [facility] RBC Count 4.04 3.8 - 5.2 10/24/2017 [facility] 10e12/L 7:17 AM CDT [facility] Hemoglobin 10.2 (L) 11.7 - 10/24/2017 [facility] 15.7 g/dL 7:17 AM CDT [facility] Hematocrit 32.2 (L) 35.0 - 10/24/2017 [facility] 47.0 % 7:17 AM CDT [facility] MCV 80 78 - 100 10/24/2017 [facility] fl 7:17 AM CDT [facility] MCH 25.2 (L) 26.5 - 10/24/2017 [facility] 33.0 pg 7:17 AM CDT [facility] MCHC 31.7 31.5 - 10/24/2017 [facility] 36.5 g/dL 7:17 AM CDT [facility] RDW 13.3 10.0 - 10/24/2017 [facility] 15.0 % 7:17 AM CDT [facility] Platelet Count 235 150 - 450 10/24/2017 [facility] 10e9/L 7:17 AM CDT [facility] Specimen Anatomical Collection Method Collection Time Receive d Time (Source) Location / / Volume Laterality Blood specimen 10/24/2017 7:05 AM 018 7:06 (specimen) CDT AM CDT Huong Stock PA-C LAB - BLOOD ORDERABLES Performing Organization Address City/State/ZIP Code Phon e Number [address] [address] [facility] (ABNORMAL) Basic metabolic panel (10/24/2017 7:05 AM CDT) Analysis Performed At Patho logist Time Signature Sodium 144 133 - 144 10/24/2017 [facility] mmol/L 7:33 AM T [facility] Potassium 3.6 3.4 - 5.3 10/24/2017 [facility] mmol/L 7:33 AM CDT [facility] Chloride 110 (H) 94 - 109 10/24/2017 [facility] mmol/L 7:33 AM T [facility] Carbon Dioxide 27 20 - 32 10/24/2017 [facility] mmol/L 7:33 AM CDT [facility] Anion Gap 7 3 - 14 10/24/2017 [facility] mmol/L 7:33 AM T [facility] Glucose 99 70 - 99 10/24/2017 [facility] mg/dL 7:33 AM T [facility] Urea Nitrogen 6 (L) 7 - 30 10/24/2017 [facility] mg/dL 7:33 AM T [facility] Creatinine 0.74 0.52 - 10/24/2017 [facility] 1.04 mg/dL 7:33 AM T [facility] GFR Estimate 89 >60 10/24/2017 [facility] mL/min/1.7 7:33 AM T [address] Comment: Non GFR Calc GFR Estimate If >90 >60 mL/min/1.7m2 10/24/2017 7:33 A M [facility] Black [facility] Comment: GFR Calc Calcium 7.6 (L) 8.5 - 10.1 mg/dL 10/24/2017 7:33 AM T [facility] Specimen Anatomical Collection Method Collection Time Receive d Time (Source) Location / / Volume Laterality Blood specimen 10/24/2017 7:05 AM 018 7:06 (specimen) CDT AM CDT Huong Stock PA-C LAB - BLOOD ORDERABLES Performing Organization Address City/State/ZIP Code Phon e Number [facility] [address] [place] [address] [facility] (ABNORMAL) Glucose by meter (10/24/2017 2:17 AM CDT) P athologist Signature Glucose 110 (H) 70 - 99 10/24/2017 POINT OF CARE mg/dL 2:31 AM CDT TEST, GLUCOSE Specimen Anatomical Collection Method Collection Time Receive d Time (Source) Location / / Volume Laterality 10/24/2017 2:17 AM 8 2:31 CDT AM CDT Myles HILLIARD POCT Performing Organization Address [facility]/ZIP Code Phon e Number [facility] POINT OF [...] be read by a radiologist or a [place] non-radiologis t provider. Myles De Oliveira MD IMG DIAGNOSTIC IMAGING ORDER TAYLOR Performing Organization Address [facility] Code Phon e Number [facility] Glucose by meter (10/23/2017 5:57 AM CDT) P athologist Signature Glucose 94 70 - 99 10/23/2017 POINT OF CARE mg/dL 6:09 AM CDT TEST, GLUCOSE Comment: Dr/RN Notified Specimen Anatomical Collection Method Collection Time Receive d Time (Source) Location / / Volume Laterality 10/23/2017 5:57 AM 8 6:09 CDT AM CDT Myles HILLIARD POCT Performing Organization Address City/[facility] Phon e Number [facility] POINT OF CARE TEST, GLUCOSE POINT OF CARE TEST, GLUCOSE HCG qualitative urine (10/23/2017 5:50 AM CDT) Analysis Performed At Patho logist Time Signature HCG Qual Urine Negative NEG^Negati 10/23/2017 [facility] 6:22 AM CDT [facility] Comment: This test is for screening purposes. ??R esults should be interpreted along with the clinical picture. ??Confirmation te sting is available if warranted by ordering [id number], HCG Quantitative Pregna ncy. Specimen Anatomical Collection Method Collection Time Receive d Time (Source) Location / / Volume Laterality Urine specimen URINE SPECIMEN / 10/23/2017 5:50 AM 11/2017 6:06 (specimen) Unknown CDT AM CDT Sarah Parry MD LAB - URINE ORDERABLES Performing Organization Address City/State/ZIP Code Phon e Number [facility] [address] [place] [address] [facility] EMG - HIM SCAN (10/23/2017 12:00 AM [...] used when administering multiple Central Nervous System (DORMITORY KEEPER) depressing meds within a short time frame., Post-procedure Given 10/24/2017 6:06 AM CDT 25 mg diphenhydrAMINE (BENADRYL) injection 25 mg 25 mg, Intravenous, EVERY 6 HOURS PRN, i tching, Only give if patient unable to take PO., Starting on Mon10/23/17 at 1417, Caution to be us ed when administering multiple Central Nervous System (DORMITORY KEEPER) de pressing meds within a short time [...] medication dose, if any., Pre-procedure HYDROmorphone (DILAUDID) DAUB COLOR MIXER 1 mg/mL OPIOID Shift Total 10/14 10:35 PM CDT NAIVE Nurse Loading Dose: 0.2 mg, DAUB COLOR MIXER Dose: 0.2 mg, Lockout Interval: 10 Minutes, Continuous Rate: 0 mg/hr, One Hour Dose Limit: 1.8 mg, Starting on Mon10/23/17 at 1200, Start with the provider specified dose. DAUB COLOR MIXER dose range is 0.2 mg - 0.3 mg. May increase dose by 0.1 mg for pain control or improvement in physical function. Hold the dose for analgesic side effects. Notify the provider to assess for uncontrolled pain or analgesic side effects.Do NOT give any additional opioids while on DAUB COLOR MIXER. When transitioning from DAUB COLOR MIXER to oral opioid MAY give first oral dose 30 minutes PRIOR to discontinuation of DAUB COLOR MIXER., Intravenous, Post-procedure Rate/Dose Verify 10/23/2017 2:45 PM CDT New Syringe/Cartridge 10/23/2017 12:41 PM CDT HYDROmorphone (DILAUDID) DAUB COLOR MIXER 1 New Syringe/Cartridge 10/24/2017 9:54 AM CDT mg/mL OPIOID NAIVE Nurse Loading Dose: 0.2 mg, DAUB COLOR MIXER Dose: 0.3 mg, Lockout Interval: 10 Minutes, Continuous Rate: 0 mg/hr, One Hour Dose Limit: 1.8 mg, Starting on Mon10/24/17 at 0130, Start with the provider specified dose. DAUB COLOR MIXER dose range is 0.2 mg - 0.3 mg. May increase dose by 0.1 mg for pain control or improvement in physical function. Hold the dose for analgesic side effects. Notify the provider to assess for uncontrolled pain or analgesic side effects.Do NOT give any additional opioids while on DAUB COLOR MIXER. When transitioning from DAUB COLOR MIXER to oral opioid MAY give first oral dose 30 minutes PRIOR to discontinuation of DAUB COLOR MIXER., Intravenous, Post-procedure Shift Total 10/24/2017 6:01 AM [...] or analgesic side effects. Hold while on DAUB COLOR MIXER or with regular IV opioid dosing. Maximum [...] or analgesic side effects. Hold while on DAUB COLOR MIXER or with regular IV opioid dosing. Maximum [...] 10/27/2017 acetaminophen (TYLENOL) tablet 975 mg () 7416 ( Given - Provider: Rhonda Sheppard RN)1499 (Given - Provider: Patricia Gonsalez RN)0445 (Given - Provider: Emma Morales RN) 0707 [...] Morales RN) 09 (See Alternative - Provider: Stefafnie Killian RN) 2 tablet, Oral, 2 TIMES DAILY, First dos e on [place] 10/26/17 at 2000, Hold for loose stools., Post-procedure sodium chloride (PF) 0.9% PF flush 3 mL 0009 (Not Give n - Provider: Rhonda Sheppard RN - Reason: Med discontinued by Provider - Comment: clinical dietetic technician d/c'd)1148 (Given - Provider: Patricia Gonsalez, RN)2157 [...] Oral, EVERY 6 HOURS PRN, itching, Starting Mon10/23/17 at 1417, Caution to be used when administering multiple Central Nervous System (DORMITORY KEEPER) depressing meds within a short time frame., Post-procedure diphenhydrAMINE (BENADRYL) injection 25 mg(Linked Grou p 2) 0327 (See Alternative - Provider: Rhonda Sheppard RN) 25 mg, Intravenous, EVERY 6 HOURS PRN, i tching, Only give if patient unable to take PO., Starting 10/23/17 at 1417, Caution to be used when administering multiple Central Nervous System (DORMITORY KEEPER) depress ing meds within a short time [...] Rhonda Sheppard, KENNY) 0648 (Given - Provider: Juanis Tejeda) 500 mg, Oral, EVERY 6 HOURS PRN, muscle spasms, Starting Tue 10/14 03/02 at 1507 metoclopramide (REGLAN) injection 10 mg(Linked Group 3) 1309 (Given - Provider: Emma Morales RN) 10 [...] metoclopramide (REGLAN) tablet 10 mg(Linked Group 3) 5471 (See Alternative - Provider: Emma Morales RN) [...] or analgesic side effects. Hold while on DAUB COLOR MIXER or with regular IV opioid dosing. Maximum [...] mg(Linked Group 5) 2153 (Given - Provider: Eunjung Oh, RN) 1235 (Given - Provider: Barbara Killian [...] used when administering multiple Central Nervous System (DORMITORY KEEPER) depressing meds within a short time frame.
Post-procedure Or diphenhydrAMINE (BENADRYL) injection 25 mgJump to med 25 mg, Intravenous, EVERY 6 HOURS PRN, i tching, Only give if patient unable to take PO., Starting 10/23/17 at 1417
Caution to be used when administering multiple Central Nervous System (DORMITORY KEEPER) depressing meds within a short time fra [...]
Post-procedure documented in this encounter Care Teams Refrigeration Supervisor Relationship Specialty Start Date End Date Keri Elias PCP - General Family Practice 03/12/15 9 MD Ira Glez David Wayne, MD Orthopedics 07/09/14 [facility] [place] [address] Astrid Rios PA-C Physician Napper Fixer Physician Napper Fixer - 07/09/14 Surgical documented as of this encounter
--- OUTSIDE RECORDS SUMMARY | 2022-01-07 13:14 | XMS_ITS | Encounter Summary ---
:1980 Author Organization [place] Address [address] [facility] [place] [address] Care Team Providers Name Role Phone Bebeto Roth MD Unavailable Astrid Rios PA-C Unavailable Keri Elias MD Primary Care Provider Unavailable Reason for Visit Diagnostic Imaging XR - Closed Specialty Diagnoses / Procedures Referred By Contact Refer red To Contact Diagnoses S/P spinal fusion Bebeto Roth MD Procedures XR Six Foot Standing Extremities [address] [place], [place] [address] Referral ID Status Reason Start Date Expiration Date Visits Requ ested Visits Authorized [id number] Closed 11/06/2017 11/06/2018 1 1 Encounter Details Date Type Department Care Team Description 12/13/2017 Radiant Appointment M [facility] Imaging Bebeto Roth S/P spinal fusion Center Una Hartman MD 9 [facility] [address] [place] [phone] Social History Tobacco Use Types Packs/Day Years [...] No substantial global coronal imbalance. Sagittal Vertical [place] (A vertical line drawn from the center [...] No substantial global coronal imbalance. Sagittal Vertical [place] (A vertical line drawn from the center [...] status documented in this encounter Care Teams Central Office Trouble Shooter Relationship Specialty Start Date End Date Keri Elias PCP - General Family Practice 03/12/15 9 MD Ira Glez David Wayne, MD Orthopedics 07/09/[address] [place] [address] Astrid Rios PA-C Physician Pack Puller Physician Pack Puller - 07/09/14 Surgical documented as of this encounter
--- OUTSIDE RECORDS SUMMARY | 2022-01-07 13:14 | XMS_ITS | Encounter Summary ---
:1980 Author Organization [place] Address [facility] [place] [address] Care Team Providers Name Role Phone Myles De Oliveira MD Unavailable Astrid Rios PA-C Unavailable Keri Elias MD Primary Care Provider Unavailable Reason for Visit Auth/Cert Specialty Diagnoses / Procedures Referred By Contact Refer red To Contact Surgery Diagnoses Scoliosis Kyphosis Ur Periop Procedures [facility] [address] [place] [address] Phone: Fax: Referral ID Status Reason Start Date Expiration Date Visits Requ ested Visits Authorized [id number] 1 1 Encounter Details Date Type Department Care Team Description 10/23/2017 Surgery [facility] Myles De Oliveira Exten dayna Of Fusion PeriOp Services MD Devan Thoracic 4-Thoracic [id number] [facility] [address] Miguel Khan [facility] [place] [address] [place], [place] Osteotomies Thoracic [phone] [id number] Surgery Details Date/Time Status Location OR Service Patient Case Case Traum a Class Class Type Case? 10/23/17 7:30 Posted UR OR UR OR Orthopedics Surgery AM 14 Admit Panel 1 Procedure LRB Anes Op Region Wound Class Commen ts Extension Of Fusion N/A General Spine I-Clean Exten dayna Of Fusion Thoracic 4-Thoracic 10, T horacic 4-Thoracic 10, Rivera Khan Osteotomies Rivera Khan Thoracic 6-10 Osteotomies Thoracic 6-10 Surgeon [...] 12/13/2017 3:00 PM Myles De Oliveira MD [facility] 01/17/2018 7:45 AM Myles De Oliveira MD [facility] Orthopaedic Surgery appointments are at the [facility] [place] ([address] [place] [address]). Call [phone] to schedule a follow-up appointment at this [...] CHANGED Details fluticasone (FLONASE) 50 MCG/ACT spray [place] 1-2 sprays into both nostrils daily, Disp-16 g, R-3, E-Prescribe pseudoePHEDrine (SUDAFED) 120 MG 12 hr tablet Take 120 mg by mouth every morning, Historical STOP taking these medications ibuprofen (ADVIL/MOTRIN) 600 MG tablet Comments: Reason for Stopping: Discharge Procedure Orders Reason for your hospital stay Order Comments: You were hospitalized after surgery for pain control and therapy. Adult [facility] Follow-up and recommended labs and tests Order Comments: You have an appointment with Dr. De Oliveira on 12/13/17. [facility] [place] ([address] [place] [address]). Call [phone] to schedule a follow-up appointment at this [...] from 7 am to 7 pm daily [facility] [place] ([address] [place] [address]). -Pain control: Take medication as prescribed, but [...] help keep you hydrated. -CALL OUR CLINIC ([phone] during regular office hours, or [phone] for the on-call residentMD for questions - [...] Start Date End Date fluticasone (FLONASE) 50 [place] 1-2 sprays 16 g 3 07/05 MCG/ACT [...] Oxygen Delivery: 6 LPM Height: 160.7 cm (' 3) Weight: 68.9 kg (151 lb 14.4 oz) Estimated body mass index is 26.68 kg/(m^2) as calculated from the following: Height as of this encounter: 1.607 m (' 3). Weight as of this encounter: 68.9 kg [...] prior to contacting the Orthopaedic Surgery resident heart surgeon. Thank you! Sunni Hernandez MD - 10/26/2017 1:21 PM CDT Urinary retention No BM yet Ambulating with PT Last night nursing notes reviewed No cp No sob No fever No chills No vomiting No loss of consciousness Vital signs: Temp: 99.1 ??F (37.3 ??C) Temp src: Oral BP: 97/50 Pulse: 114 Heart Rate: 103 Resp: 16 SpO2: 98 % B7Pcrlxc: None (Room air) Oxygen Delivery: 6 LPM [...] found in last 7 days. A/P ; Jcoelin Garg is a 37 year old female [...] Rivera RN - 10/26/2017 10:58 AM CDT Staff Veterinarian Progress Note Admission Date/Time: 10/23/2017 Attending MD: [...] Plan: home Angelica RAMOSN RN CCM RN Staff Veterinarian 10A E-mail: [email or web address] Pager: [phone] To contact weekend RNCC, dial [phone] and enter pager number [phone] at prompt. [...] prior to contacting the Orthopaedic Surgery resident heart surgeon. Thank you! Sunni Otoole MD - 10/25/2017 [...] Mobility Skill: Sit to Supine Level of [place]: Sit/Supine stand-by assist Bed Mobility Skill: Supine to Sit Level of [place]: Supine/Sit stand-by assist Transfer Skill: Bed to Chair/Chair to Bed Level of [place]: Bed to Chair stand-by assist Assistive Device - Transfer Skill Bed to Chair Chair to Bed Rehab Eval standard walker Transfer Skill: Sit to Stand Level of [place]: Sit/Stand stand-by assist Assistive Device for Transfer: Sit/Stand standard walker Transfer Skill: Toilet Transfer Level of [place]: Toilet stand-by assist Upper Body Dressing Level of [place]: Dress Upper Body independent Lower Body Dressing Level of [place]: Dress Lower Body stand-by assist Toileting Level of [place]: Toilet stand-by assist Grooming Level of [place]: Grooming independent Eating/Self Feeding Level of [place]: Eating independent Activities of Daily Living Analysis Impairments Contributing to Impaired Activities of Daily Living pain;post surgical precautions;ROM decreased Clinical Impression Criteria for Skilled Therapeutic Interventions Met evaluation only Risks and Benefits of Treatment have been explained. Yes Patient, Family & other staff in agreement with plan of care Yes [facility]-PAC TM 6 Clicks ?? 2016, Trustees of [facility], under license to [employer]. All rights reserved. 6 Clicks Short Forms Daily Activity Inpatient Short Form [facility] AM-PAC??? 6 Clicks Daily Activity Inpatient [...] prior to contacting the Orthopaedic Surgery resident heart surgeon. Thank you! Sunni Otoole MD - 10/24/2017 [...] Pericolace . Add miralax Discuss with ortho CRIMPER OPERATOR and care team rounds Tala Roche Pt, PT - 10/24/2017 10:19 AM CDT 10/24/17 1004 Quick Adds Type of Visit Initial PT Evaluation Rejected Items Clerk Rejected Items Clerk Present no Language Kinyarwanda Living Environment Lives With child(gabino), dependent;significant other [...] in agreement with plan of care Yes [facility]-PAC TM 6 Clicks ?? 2016, Trustees of [facility], under license to [employer]. All rights reserved. 6 Clicks Short Forms Basic Mobility Inpatient Short Form [facility]??? 6 Clicks V.2 Basic Mobility Inpatient [...] prior to contacting the Orthopaedic Surgery resident heart surgeon. Thank you! documented in this encounter Consult Notes Michael Hilario MD - 10/23/2017 3:54 PM CDTAssociated Order(s): INTERNAL MEDICINE ADULT IP CONSULT FOR [facility] INTERNAL MEDICINE CONSULTATION REQUESTING PHYSICIAN: Myels De Oliveira MD REASON FOR CONSULTATION: For recommendations for medical comorbidities. Assessment Jocelin Garg is a 37 year old female admitted on 10/23/2017 for spinal Sx 1) Extension Of Fusion Thoracic 4-Thoracic 10, Rivera Khan Osteotomies Thoracic 6-10 post op D# 0 Hemodynamics: stable - continue on IV fluids, until adequate PO. Analgesia: adequate , on CATTLE DIPPER Antiemetics: as per protocol. If does not [...] with any questions. Michael Hilario MD (Pager- [phone]) Internal Medicine/ Hospitalist CHIEF COMPLAINT: 37 year [...] to Encounter: fluticasone (FLONASE) 50 MCG/ACT spray [place] 1-2 sprays into both nostrils daily (Patient taking differently: [place] 1-2 sprays into both nostrils as needed [...] in this encounter Nursing Notes René Esposito, KENNY - 10/23/2017 12:29 PM CDT PACU to Inpatient Nursing Handoff Patient Jocelin Garg is a 37 year old female who speaks Kinyarwanda. Procedure Procedure(s): Extension Of Fusion Thoracic 4-Thoracic [...] mg (total dose) last given at 1245 CATTLE DIPPER / epidural Yes. CATTLE DIPPER - hydromorphone (Dilaudid) Capnography Yes Telemetry ECG Rhythm: Normal sinus rhythm Inpatient Optometry Professor Ordered? No Labs Glucose Lab Results Component Value Date GLC 90 09/29/2017 Hgb Lab Results Component Value Date HGB 12.5 09/29/2017 INR Lab Results Component Value Date INR 1.02 09/29/2017 PACU Imaging Not applicable Wound/Incision Incision/Surgical Site 10/23/17 Back (Active) Incision Assessment [facility] 10/23/2017 11:18 AM Closure Approximated;Liquid bandage [...] 10/23/17 Left Lower forearm (Active) Site Assessment WD 10/23/2017 12:07 PM Line Status Saline locked [...] Date 10/23/17 0700 - 10/24/17 0659 Shift [id number] 1448-3496 1691-8523 24 Hour Total I N T A K E I.V. 1450 1450 Shift Total (mL/kg) 1450 (21.05) 1450 (21.05) O U T P U T Urine 100 100 Blood 310 310 Shift Total (mL/kg) 410 (5.95) 410 (5.95) Weight (kg) 68.9 68.9 68.9 68.9 Drains / Florez Closed/Suction Drain Back Accordion 10 Peruvian (Active) Site Description [facility] 10/23/2017 12:07 PM Dressing Status Normal: Clean, Dry & Intact 10/23/2017 12:07 PM Drainage Appearance Normal 10/23/2017 12:07 PM Number of days:0 Urethral Catheter Latex 16 fr (Active) Tube Description [facility] 10/23/2017 12:07 PM Collection Container [...] needing completion None René Esposito, RN ASCOM [id number] documented in this encounter Miscellaneous Notes Plan [...] goal(s). See goals on Care Plan in [facility] electronic health record for goal details. Goals met Therapy recommendation(s): Continue home exercise program. Plan of Care - Jocelin Mayes PT - 10/26/2017 10:32 AM CDT Problem: Patient Care Overview Goal: Plan of Care/Patient Progress Review Electrical Engineering Manager PT Patient plan for discharge: Home Current [...] 10:30 AM Plan of Care - Rhonda Sheppard RN - 10/26/2017 2:15 AM CDT Problem: [...] Overview Goal: Plan of Care/Patient Progress Review Electrical Engineering Manager PT Patient plan for discharge: Home with [...] OT needs. Plan of Care - Rhonda Sheppard RN - 10/25/2017 8:15 AM CDT Problem: [...] Additional Info: Pt very anxious throughout shift, check writer salesperson listened to pt's concerns and addressed each [...] had oxycodone dose increased to 10-15mg. Dilaudid CATTLE DIPPER discontinued this am.Offered ice packs but pt [...] Overview Goal: Plan of Care/Patient Progress Review Electrical Engineering Manager PT Patient plan for discharge: Home with [...] Care/Patient Progress Review A/O x 4. Increased CATTLE DIPPER from 0.2 to 0.3 due to inadequate [...] 1 Skin: Intact Pain: Moderate. Manageable w/ CATTLE DIPPER pump. Neuro/CMS: Intact, no numbness or tingling reported Dressing(s): Posterior back CDI Diet: Clear liquids, tolerating well. Equipment: CAPNO CATTLE DIPPER pump IV's/Drains: PIV R hand infusing NS 100mL/hr and CATTLE DIPPER pump Hemovac - 0ccs Florez - patent Plan: Continue to monitor Additional Info: Discontinue CATTLE DIPPER pump POD #1 Discontinue florez POD #1 [...] of surgical incisions and hemovac replacement Pain: CATTLE DIPPER dilaudid on and verified. Pt has discomfort in lower back. And bladder Neuro/CMS: Intact denies numbness and tingling. Prior to surgery pt had intermittently tingling in BL feet. Dressing(s): CDI Aquacel posterior from neck down to Buttocks. hemovac in place CDI. Diet: C.liq. Nausea Zofran given LDA: PIV left hand running LR and Dilaudid CATTLE DIPPER. R hand piv SL. Hemovac in place and patent. Aquacel. Florez catheter. Equipment: IV pole, PCDs, CATTLE DIPPER pump. CAPNO Plan: TBT Additional Info: Pt [...] Myles De Oliveira MD N/A None available Narcotics Investigator(s): Huong Stock PA-C Anesthesia: General Estimated blood [...] to PACU Plan: Pain: Scheduled Tylenol, Dilaudid CATTLE DIPPER, oxycodone PRN, Valium PRN Activity: Weight bearing [...] in 5-7 days. Huong Stock PA-C Pager: [phone] If no answer or after 4pm, please page the heart surgeon ortho resident. Op Note - Myles De [...] surgery SURGEON: Myles De Oliveira Jr., MD CEMENTER: Huong Stock PA-C. No qualified resident was [...] then turned in position prone on a [facility] 4-director of regulatory affairs frame. She was prepared and draped in [...] the O- arm and transferred to the [employer] image-guided workstation. This was now used to [...] CC Name: JOCELIN PINEDO MRN: [id number] Account: [id number] : 1980 Procedure Date: 10/23/2017 Document: [id number] cc: Copy for Patient Keri Mitchell Beaulieu [...] spine. Positive global coronal imbalance. Sagittal Vertical [place] (A vertical line drawn from the center [...] spine. Positive global coronal imbalance. Sagittal Vertical [place] (A vertical line drawn from the center [...] Component Value Ref Test Analysis Performed At [facility] gist Range Method Time Signature Color Urine Light Yellow 10/26/2017 [facility] 3:08 PM T [facility] Appearance Urine Clear 10/26/2017 [facility] O F 3:08 PM CDT [facility] Glucose Urine Negative NEG^Nega 10/26/2017 [facility] tive 3:08 PM CDT [facility] [facility] mg/dL [facility] Bilirubin Urine Negative NEG^Nega 10/26/2017 [facility] Ketones Urine 10 (A) NEG^Nega 10/26/2017 [facility] tive 3:08 PM CDT [facility] [facility] mg/dL [facility] Specific [place] 1.005 1.003 - 10/26/2017 [place] O F Urine 1.035 3:08 PM T [facility] Blood Urine Moderate (A) NEG^Nega 10/26/2017 [facility] tive 3:08 PM T [facility] pH Urine 6.5 5.0 - 10/26/2017 [facility] 7.0 pH 3:08 PM T [facility] Protein Albumin Negative NEG^Nega 10/26/2017 [facility] Urine tive 3:08 PM CDT [facility] [facility] mg/dL [facility] Urobilinogen Normal 0.0 - 10/26/2017 [facility] mg/dL 2.0 3:08 PM CDT [place] [facility] mg/dL [facility] Nitrite Urine Negative NEG^Nega 10/26/2017 [facility] tive 3:08 PM CDT [facility] Leukocyte Negative NEG^Nega 10/26/2017 [facility] Esterase Urine tive 3:08 PM CDT [facility] Source Unspecified 10/26/2017 [facility] Urine 2:54 PM CDT [facility] WBC Urine 1 0 - 5 10/26/2017 [facility] /HPF 3:08 PM CDT [facility] RBC Urine 1 0 - 2 10/26/2017 [facility] /HPF 3:08 PM CDT [facility] Squamous <1 0 - 1 10/26/2017 [facility] Epithelial /HPF /HPF 3:08 PM CDT [facility] Specimen (Source) Anatomical Collection Method Collection Time Re ceived Time Location / / Volume Laterality Unspecified Urine URINE SPECIMEN 10/26/2017 2:40 10/26 2:54 OBTAINED BY CLEAN PM CDT PM CDT CATCH PROCEDURE / Unknown Sunni Hernandez MD LAB - URINE ORDERABLES Performing Organization Address City/State/ZIP Code Phon e Number [facility] [address] [place] [address] [facility] (ABNORMAL) CBC with platelets (10/26/2017 8:00 AM CDT) [facility] gist Method Time Signature WBC 6.1 4.0 - 11.0 10/26/2017 [facility] 10e9/L 8:24 AM CDT [facility] RBC Count 3.88 3.8 - 5.2 10/26/2017 [facility] 10e12/L 8:24 AM CDT [facility] Hemoglobin 9.9 (L) 11.7 - 10/26/2017 [facility] 15.7 g/dL 8:24 AM CDT [facility] Hematocrit 30.5 (L) 35.0 - 10/26/2017 [facility] 47.0 % 8:24 AM CDT [facility] MCV 79 78 - 100 10/26/2017 [facility] fl 8:24 AM CDT [facility] MCH 25.5 (L) 26.5 - 10/26/2017 [facility] 33.0 pg 8:24 AM CDT [facility] MCHC 32.5 31.5 - 10/26/2017 [facility] 36.5 g/dL 8:24 AM CDT [facility] RDW 13.3 10.0 - 10/26/2017 [facility] 15.0 % 8:24 AM CDT [facility] Platelet Count 244 150 - 450 10/26/2017 [facility] 10e9/L 8:24 AM CDT [facility] Specimen Anatomical Collection Method Collection Time Receive d Time (Source) Location / / Volume Laterality Blood specimen 10/26/2017 8:00 AM 018 8:01 (specimen) CDT AM CDT Huong Stock PA-C LAB - BLOOD ORDERABLES Performing Organization Address City/State/ZIP Code Phon e Number [facility] [address] [place] [address] [facility] (ABNORMAL) Glucose by meter [...] 10/25/2017 [facility] 10e9/L 6:34 AM CDT [facility] RBC Count 4.03 3.8 - 5.2 10/25/2017 [facility] 10e12/L 6:34 AM CDT [facility] Hemoglobin 10.2 (L) 11.7 - 10/25/2017 [facility] 15.7 g/dL 6:34 AM CDT [facility] Hematocrit 32.0 (L) 35.0 - 10/25/2017 [facility] 47.0 % 6:34 AM CDT [facility] MCV 79 78 - 100 10/25/2017 [facility] fl 6:34 AM CDT [facility] MCH 25.3 (L) 26.5 - 10/25/2017 [facility] 33.0 pg 6:34 AM CDT [facility] MCHC 31.9 31.5 - 10/25/2017 [facility] 36.5 g/dL 6:34 AM CDT [facility] RDW 13.5 10.0 - 10/25/2017 [facility] 15.0 % 6:34 AM CDT [facility] Platelet Count 248 150 - 450 10/25/2017 [facility] 10e9/L 6:34 AM CDT [facility] Specimen Anatomical Collection Method Collection Time Receive d Time (Source) Location / / Volume Laterality Blood specimen 10/25/2017 6:26 AM 018 6:28 (specimen) CDT AM CDT Huong Stock PA-C LAB - BLOOD ORDERABLES Performing Organization Address City/State/ZIP Code Phon e Number [facility] [address] [place] [address] [facility] (ABNORMAL) CBC with platelets (10/24/2017 7:05 AM CDT) [facility] Method Time Signature WBC 8.8 4.0 - 11.0 10/24/2017 [facility] 10e9/L 7:17 AM CDT [facility] RBC Count 4.04 3.8 - 5.2 10/24/2017 [facility] 10e12/L 7:17 AM CDT [facility] Hemoglobin 10.2 (L) 11.7 - 10/24/2017 [facility] 15.7 g/dL 7:17 AM CDT [facility] Hematocrit 32.2 (L) 35.0 - 10/24/2017 [facility] 47.0 % 7:17 AM CDT [facility] MCV 80 78 - 100 10/24/2017 [facility] 7:17 AM CDT [facility] MCH 25.2 (L) 26.5 - 10/24/2017 [facility] 33.0 pg 7:17 AM CDT [facility] MCHC 31.7 31.5 - 10/24/2017 [facility] 36.5 g/dL 7:17 AM CDT [facility] RDW 13.3 10.0 - 10/24/2017 [facility] 15.0 % 7:17 AM CDT [facility] Platelet Count 235 150 - 450 10/24/2017 [facility] 10e9/L 7:17 AM T [facility] Specimen Anatomical Collection Method Collection Time Receive d Time (Source) Location / / Volume Laterality Blood specimen 10/24/2017 7:05 AM 018 7:06 (specimen) CDT AM CDT Huong Stock PA-C LAB - BLOOD ORDERABLES Performing Organization Address City/State/ZIP Code Phon e Number [facility] [address] [place] [address] [facility] (ABNORMAL) Basic metabolic panel (10/24/2017 7:05 AM CDT) Analysis Performed At Patho logist Time Signature Sodium 144 133 - 144 10/24/2017 [facility] mmol/L 7:33 AM [facility] Potassium 3.6 3.4 - 5.3 10/24/2017 [facility] mmol/L 7:33 AM [facility] Chloride 110 (H) 94 - 109 10/24/2017 [facility] mmol/L 7:33 AM [facility] Carbon Dioxide 27 20 - 32 10/24/2017 [facility] mmol/L 7:33 AM [facility] Anion Gap 7 3 - 14 10/24/2017 [facility] mmol/L 7:33 AM [facility] Glucose 99 70 - 99 10/24/2017 [facility] mg/dL 7:33 AM [facility] Urea Nitrogen 6 (L) 7 - 30 10/24/2017 [facility] mg/dL 7:33 AM [facility] Creatinine 0.74 0.52 - 10/24/2017 [facility] 1.04 mg/dL 7:33 AM [facility] GFR Estimate 89 >60 10/24/2017 [facility] mL/min/1.7 7:[address] Comment: Non GFR Calc GFR Estimate If >90 >60 mL/min/1.7m2 10/24/2017 7:33 A M [facility] Black [facility] Comment: GFR Calc Calcium 7.6 (L) 8.5 - 10.1 mg/dL 10/24/2017 7:33 AM CDT [facility] Specimen Anatomical Collection Method Collection Time Receive d Time (Source) Location / / Volume Laterality Blood specimen 10/24/2017 7:05 AM 018 7:06 (specimen) CDT AM CDT Huong Stock PA-C LAB - BLOOD ORDERABLES Performing Organization Address City/State/ZIP Code Phon e Number [facility] [address] [place] [address] [facility] (ABNORMAL) Glucose by meter (10/24/2017 2:17 AM CDT) P athologist Signature Glucose 110 (H) 70 - 99 10/24/2017 POINT OF CARE mg/dL 2:31 AM CDT TEST, GLUCOSE Specimen Anatomical Collection Method Collection Time Receive d Time (Source) Location / / Volume Laterality 10/24/2017 2:17 AM 8 2:31 CDT AM CDT Myles De Oliveira MD [...] be read by a radiologist or a [place] non-radiologis t provider. Myles De Oliveira MD [...] AM 8 6:09 CDT AM CDT Myles De Oliveira MD LAB - BEAKER POCT Performing Organization Address City/State/ZIP Code Phon e Number [facility] POINT OF CARE TEST, GLUCOSE POINT OF CARE TEST, GLUCOSE HCG qualitative urine (10/23/2017 5:50 AM CDT) Analysis Performed At Patho logist Time Signature HCG Qual Urine Negative NEG^Negati 10/23/2017 [facility] 6:22 AM CDT [facility] Comment: This test is for screening purposes. ??R esults should be interpreted along with the clinical picture. ??Confirmation te sting is available if warranted by ordering [id number], HCG Quantitative Pregna ncy. Specimen Anatomical Collection Method Collection Time Receive d Time (Source) Location / / Volume Laterality Urine specimen URINE SPECIMEN / 10/23/2017 5:50 AM 11/2017 6:06 (specimen) Unknown CDT AM CDT Sarah Parry MD LAB - URINE ORDERABLES Performing Organization Address City/[facility]/ZIP Code Phon e Number [facility] [address] [place], [place] [id number] [place] [address] EMG - HIM SCAN (10/23/2017 12:00 AM [...] bottle for irrigation PRN, Starting on Mon 10/18 at 1124, Intra-procedure bisacodyl (DULCOLAX) Suppository 10 [...] used when administering multiple Central Nervous System (SOFTLINES SUPERVISOR) depressing meds within a short time frame., Post-procedure Given 10/24/2017 6:06 AM CDT 25 mg diphenhydrAMINE (BENADRYL) injection 25 mg 25 mg, Intravenous, EVERY 6 HOURS PRN, i tching, Only give if patient unable to take PO., Starting on Mon10/23/17 at 1417, Caution to be us ed when administering multiple Central Nervous System (SOFTLINES SUPERVISOR) de pressing meds within a short time [...] 6 HOURS PRN, nausea, vomiting, Starting on 9/10/18 at 1417, This is Step 3 of [...] or analgesic side effects. Hold while on CATTLE DIPPER or with regular IV opioid dosing. Maximum [...] 10/27/2017 acetaminophen (TYLENOL) tablet 975 mg () 6041 ( Given - Provider: Rhonda Sheppard RN)6571 (Given - Provider: Patricia Gonsalez RN)1483 (Given - Provider: Emma Morales RN) 0707 [...] MG per tablet 2 tablet(Linked Group 1) 213 (See Alternative - Provider: Nate Morales RN) 0908 (See Alternative - Provider: Steffanie Killian RN) 2 tablet, Oral, 2 TIMES DAILY, First dos e on [place] 10/26/17 at 2000, Hold for loose stools., Post-procedure sodium chloride (PF) 0.9% PF flush 3 mL 0009 (Not Give n - Provider: Rhonda Sheppard RN - Reason: Med discontinued by Provider - Comment: sports photographer d/c'd)1148 (Given - Provider: Patricia Gonsalez, RN)2157 [...] used when administering multiple Central Nervous System (SOFTLINES SUPERVISOR) depressing meds within a short time frame., Post-procedure diphenhydrAMINE (BENADRYL) injection 25 mg(Linked Grou p 2) 0327 (See Alternative - Provider: Rhonda Sheppard RN) 25 mg, Intravenous, EVERY 6 HOURS PRN, i tching, Only give if patient unable to take PO., Starting 10/23/17 at 1417, Caution to be used when administering multiple Central Nervous System (SOFTLINES SUPERVISOR) depress ing meds within a short time frame. For ordered doses up to 50 mg, give IV Push undiluted. Give each 25mg over a minimum of 1 minute. Extend in non-emergency, Post-procedure HYDROmorphone (PF) (DILAUDID) injection 0.3-0.5 mg 033 1 (Given - Provider: Rhonda Sheppard, KENNY)0556 (Given - Provider: Rhonda Sheppard, KENNY) 0005 (Given - Provider: Rhonda Sheppard, KENNY)0605 (Given - Provider: Rhonda Sheppard RN) 0.3-0.5 mg, Intravenous, EVERY 2 HOURS P RN, Starting Tue 18 at 1510, Until Mon10/27/17 at 1641, moderate [...] Huong Adams, KENNY)2359 (Given - Provider: Rhonda Sheppard RN) 0648 (Given - Provider: Juanis Tejeda) 500 mg, Oral, EVERY 6 HOURS PRN, muscle spasms, Starting 10/14 at 1507 metoclopramide (REGLAN) injection 10 mg(Linked Group 3) 1076 (Given - Provider: Emma Morales RN) 10 [...] metoclopramide (REGLAN) tablet 10 mg(Linked Group 3) 9470 (See Alternative - Provider: Emma Morales RN) [...] 2 MIN PRN , opioid reversal, Starting Mon10/23/17 at 1417, For respiratory rate LESS than [...] Rhonda Sheppard RN)0925 (Given - Provider: Patricia Gonsalez, KENNY)1236 (Given - Provider: Patricia Gonsalez RN)1538 (Given [...] or analgesic side effects. Hold while on CATTLE DIPPER or with regular IV opioid dosing. Maximum [...] prochlorperazine (COMPAZINE) tablet 10 mg(Linked Group 5) 2154 (Given - Provider: Emma Morales RN) 1235 [...] used when administering multiple Central Nervous System (SOFTLINES SUPERVISOR) depressing meds within a short time frame.
Post-procedure Or diphenhydrAMINE (BENADRYL) injection 25 mgJump to med 25 mg, Intravenous, EVERY 6 HOURS PRN, i tching, Only give if patient unable to take PO., Starting 10/23/17 at 1417
Caution to be used when administering multiple Central Nervous System (SOFTLINES SUPERVISOR) depressing meds within a short time fra [...]
Post-procedure documented in this encounter Care Teams Probe Operator Relationship Specialty Start Date End Date Keri Elias PCP - General Family Practice 03/12/15 9 MD Ira Glez, Myles Hartman MD Orthopedics 07/09/[address] [place] [address] Astrid Rios PA-C Physician Narcotics Investigator Physician Narcotics Investigator - 07/09/14 Surgical documented as of this encounter
--- OUTSIDE RECORDS SUMMARY | 2022-01-07 13:14 | XMS_ITS | Encounter Summary ---
:1980 Author Organization [place] Address [address] [facility] [place] [address] Care Team Providers Name Role Phone Bebeto Roth MD Unavailable Astrid Rios PA-C Unavailable Keri Elias MD Primary Care Provider Unavailable Encounter Details Date Type Department Care Team Description 09/29/2017 Orders Only [facility] Preop general physical [address] [facility] SE exam 1st Floor [place], [place] [phone] Social History Tobacco Use [...] 12:03 Preop general Resu lts for this [facility] physical exam procedure are in the results section. documented in this encounter Results (ABNORMAL) UA reflex to Microscopic and Culture (09/29/2017 12:11 PM [facility]) [facility] Method Time Signature Color Urine Yellow 09/29/2017 [facility] 12:41 PM [facility] Appearance Urine Clear 09/29/2017 [facility] 12:41 PM [facility] Glucose Urine Negative NEG^Negat 09/29/2017 [facility] franco mg/dL 12:41 PM [facility] Bilirubin Urine Negative NEG^Negat 09/29/2017 [facility] franco 12:41 PM [facility] Ketones Urine Negative NEG^Negat 09/29/2017 [facility] [place] mg/dL 12:41 PM [facility] Specific [place] 1.013 1.003 - 09/29/2017 [facility] Urine 1.035 12:41 PM [facility] Blood Urine Large (A) NEG^Negat 09/29/2017 [facility] franco 12:41 PM [facility] pH Urine 6.0 5.0 - 7.0 09/29/2017 [facility] pH 12:41 [facility] Protein Albumin Negative NEG^Negat 09/29/2017 [facility] Urine franco mg/dL 12:41 PM [facility] Urobilinogen 0.0 0.0 - 2.0 09/29/2017 [facility] mg/dL mg/dL 12:41 PM [facility] Nitrite Urine Negative NEG^Negat 09/29/2017 [facility] franco 12:41 PM [facility] Leukocyte Negative NEG^Negat 09/29/2017 [facility] Esterase Urine franco 12:41 [facility] Source Midstream 09/29/2017 [facility] Urine 12:16 PM [facility] RBC Urine 3 (H) 0 - 2 09/29/2017 [facility] /HPF 12:41 PM [facility] WBC Urine 1 0 - 5 09/29/2017 [facility] /HPF 12:41 PM [facility] Squamous 3 (H) 0 - 1 09/29/2017 [facility] Epithelial /HPF /HPF 12:41 PM [place] Urine [facility] Transitional Epi <1 (A) FEW^Few 09/29/2017 [facility] /HPF 12:41 PM [facility] Mucous Urine Present (A) NEG^Negat 09/29/2017 [facility] franco /LPF 12:41 PM [facility] Specimen (Source) Anatomical Collection Method Collection Time Re ceived Time Location / / Volume Laterality Examination of 09/29/2017 12:11 8 midstream urine PM CDT 12:16 PM CDT specimen (procedure) Cameron Manjarrez APRN [facility] - URINE ORDERABLES Performing Organization Address City/[facility]/ZIP Code Phon e Number [address] [address] [facility] Hemoglobin A1c (09/29/2017 12:03 PM CDT) P athologist Signature Hemoglobin A1C 5.3 0 - 5.6 % 09/29/2017 [facility] 12:48 PM CDT [facility] Comment: Normal <5.7% Prediabetes 5.7-6.4% ??Diab etes 6.5% or higher - adopted from ADA consensus guidelines. Specimen Anatomical Collection Method Collection Time Receive d Time (Source) Location / / Volume Laterality Blood specimen 09/29/2017 12:03 8 (specimen) PM CDT 12:04 PM CDT Cameron Manjarrez APRN [facility] - BLOOD ORDERABLES Performing Organization Address City/State/ZIP Code Phon e Number [address] [address] [facility] INR (09/29/2017 12:03 PM CDT) P athologist Signature INR 1.02 0.86 - 1.14 09/29/2017 [facility] 12:28 PM CDT [facility] Specimen Anatomical Collection Method Collection Time Receive d Time (Source) Location / / Volume Laterality Blood specimen 09/29/2017 12:03 8 (specimen) PM CDT 12:04 PM CDT Cameron Manjarrez APRN [facility] - BLOOD ORDERABLES Performing Organization Address City/[facility]/ZIP Code Phon e Number [address] [address] [facility] (ABNORMAL) CBC with platelets (09/29/2017 12:03 PM CDT) [facility] gist Method Time Signature WBC 4.8 4.0 - 11.0 09/29/2017 [facility] 10e9/L 12:18 PM CDT [facility] RBC Count 4.87 3.8 - 5.2 09/29/2017 [facility] 10e12/L 12:18 PM CDT [facility] Hemoglobin 12.5 11.7 - 09/29/2017 [facility] 15.7 g/dL 12:18 PM CDT [facility] Hematocrit 39.4 35.0 - 09/29/2017 [facility] 47.0 % 12:18 PM CDT [facility] MCV 81 78 - 100 09/29/2017 [facility] fl 12:18 PM CDT [facility] MCH 25.7 (L) 26.5 - 09/29/2017 [facility] 33.0 pg 12:18 PM CDT [facility] MCHC 31.7 31.5 - 09/29/2017 [facility] 36.5 g/dL 12:18 PM CDT [facility] RDW 13.8 10.0 - 09/29/2017 [facility] 15.0 % 12:18 PM CDT [facility] Platelet Count 332 150 - 450 09/29/2017 [facility] 10e9/L 12:18 PM CDT [facility] Specimen Anatomical Collection Method Collection Time Receive d Time (Source) Location / / Volume Laterality Blood specimen 09/29/2017 12:03 8 (specimen) PM CDT 12:04 PM CDT Cameron Manjarrez APRN [facility] - BLOOD ORDERABLES Performing Organization Address City/[facility] Code Phon e Number [address] [address] [facility] Basic metabolic panel (09/29/2017 12:03 PM CDT) P athologist Signature Sodium 141 133 - 144 09/29/2017 [facility] mmol/L 12:40 PM CDT [facility] Potassium 3.6 3.4 - 5.3 09/29/2017 [facility] mmol/L 12:40 PM CDT [facility] Chloride 106 94 - 109 09/29/2017 [facility] mmol/L 12:40 PM CDT [facility] Carbon Dioxide 28 20 - 32 09/29/2017 [facility] mmol/L 12:40 PM CDT [facility] Anion Gap 7 3 - 14 09/29/2017 [facility] mmol/L 12:40 PM CDT [facility] Glucose 90 70 - 99 09/29/2017 [facility] mg/dL 12:40 PM CDT [facility] Urea Nitrogen 12 7 - 30 09/29/2017 [facility] mg/dL 12:40 PM CDT [facility] Creatinine 0.85 0.52 - 09/29/2017 [facility] 1.04 mg/dL 12:40 PM CDT [facility] GFR Estimate 76 >60 09/29/2017 [facility] mL/min/1.7 12:[address] Comment: Non GFR Calc GFR Estimate If >90 >60 mL/min/1.7m2 09/29/2017 12:40 PM [facility] Black T [facility] Comment: GFR Calc Calcium 8.8 8.5 - 10.1 mg/dL 09/29/2017 12:40 PM CDT [facility] Specimen Anatomical Collection Method Collection Time Receive d Time (Source) Location / / Volume Laterality Blood specimen 09/29/2017 12:03 8 (specimen) PM CDT 12:04 PM CDT Cameron Manjarrez APRN [facility] - BLOOD ORDERABLES Performing Organization Address City/State/ZIP Code Phon e Number [place] [phone] [facility] ABO/Rh type and screen (09/29/2017 12:03 PM CDT) Patholo gist Method Time Signature ABO O 09/29/2017 [facility] 1:31 PM CDT [facility] RH(D) Pos R [facility] Antibody Neg 09/29/2017 [facility] Screen 1:31 PM CDT [facility] Test Valid [facility] 09/29/2017 [facility] [place] [facility] [place] 12:46 PM CDT [facility] Specimen 10/26/2017 10/23/2017 [facility] Expires 6:57 AM CDT [facility] Blood Bank Pre admission 09/29/2017 [facility] Comment form received 4:03 PM CDT [facility] 09/29/17 for [facility] 10/23/17. AA Specimen Anatomical Collection Method Collection Time Receive d Time (Source) Location / / Volume Laterality Blood specimen 09/29/2017 12:03 8 (specimen) PM CDT 12:04 PM CDT Cameron Manjarrez APRN [facility] - BLOOD BANK TEST ORDER Performing Organization Address City/State/ZIP Code Phon e Number [facility] [address] [place] [address] [facility] [address] [place] [address] [facility] documented in this encounter Visit Diagnoses Diagnosis Preop general physical exam Other specified pre-operative examinatio n documented in this encounter Care Teams Pr Intern Relationship Specialty Start Date End Date Keri Elias PCP - General Family Practice 03/12/15 9 MD Ira Glez David Wayne, MD Orthopedics 07/09/[address] [place] [address] Astrid Rios PA-C Physician Dialysis Biomed Technician Physician Dialysis Biomed Technician - 07/09/14 Surgical documented as of this encounter
--- OUTSIDE RECORDS SUMMARY | 2022-01-07 13:14 | XMS_ITS | Encounter Summary ---
:1980 Author Organization [place] Address [address] [facility] [place] [address] Care Team Providers Name Role Phone Bebeto Roth MD Unavailable Astrid Rios PA-C Unavailable Keri Elias MD Primary Care Provider Unavailable Reason for Visit Reason Comments Prior Auth - Medication Ondansetron 4MG ODT Encounter Details Date Type Department Care Team Description 10/30/2017 Documentation Only [facility] Awa Wilcox Prior Auth - [address] [facility] MarthaBLAYNE [address] [place] [address] 6 [facility] (Ondansetron 4MG [phone] SE ODT) [place] [address] Social History Tobacco Use Types Packs/Day Years Used Date Smoking Tobacco: Never Smokeless Tobacco: Never Alcohol Use Standard Drinks/Week Comments No 0 (1 standard drink = 0.6 oz pure alcoho l) Sex Assigned at Date Recorded Not on file documented as of this encounter Progress Notes Nadya Deras, RN - 11/13/2017 1:16 PM CDT See call center message. I called pt;. & gave her the phone#[phone] for the Medication Prior Auth. Dept. Triage stated this AM pharmacy request was faxed to Prior Auth dept. Pt. Will F/U with them. She states still has slight nausea after surgery & Zofran helps. RTC [id number]. S.O./L:Michelle Deras RN. Laureen Simmons RN - 11/13/2017 11:44 AM CDT [facility] Call Center Phone Message May a detailed message be left on voicemail: yes Reason for Call: Medication Question or concern regarding medication Prescription Clarification Name of Medication: ondansetron (ZOFRAN-ODT) 4 MG ODT tab Prescribing Provider: Dr. Roth Pharmacy: [facility] What on the order needs clarification? [facility] requestand [...] Appeal Info: Prescription Claim Appeals 109 - [facility] [address] [address] [place] [address] Fax: Appeal: No Appeal Status:n/a Copay: $6.16 [place] Filled: Yes - Per prescriber, patient was discharge with a quantity that complies with insurance limitations. Insurance: [employer] Commercial - [facility] Submitted Via: Stephan Lopez [place] [facility] Liaison [facility] [address], [place] [address] maria [email or web address] Pager: [phone] documented in this encounter Plan of Treatment Not on filedocumented as of this encounter Visit Diagnoses Not on filedocumented in this encounter Care Teams Chef Saucier Relationship Specialty Start Date End Date Keri Elias PCP - General Family Practice 03/12/15 9 MD Ira Glez David Wayne, MD Orthopedics 07/09/[address] [place] [address] Astrid Rios PA-C Physician Garageman Physician Garageman - 07/09/14 Surgical documented as of this encounter
--- OUTSIDE RECORDS SUMMARY | 2022-01-07 13:14 | XMS_ITS | Encounter Summary ---
:1980 Author Organization [place] Address [facility] [place] [address] Care Team Providers Name Role Phone Bebeto Roth MD Unavailable Astrid Rios PA-C Unavailable Keri Elias MD Primary Care Provider Unavailable Reason for Visit Reason Onset Date Comments Refill Request 11/09/2017 Encounter Details Date Type Department Care Team Description 11/09/2017 Refill [facility] Bebeto Roth MD Refill Request [address] 4th Floor [place], [place] [address] [place] [address] [phone] Social History Tobacco Use Types Packs/Day Years [...] status documented in this encounter Care Teams Psychiatry Resident Relationship Specialty Start Date End Date Keri Elias PCP - General Family Practice 03/12/15 9 MD Ira Glez, Bebeto Hartman MD Orthopedics 07/09/[address] [place] [address] Astrid Rios PA-C Physician Chief Informatics Officer Physician Chief Informatics Officer - 07/09/14 Surgical documented as of this encounter
--- OUTSIDE RECORDS SUMMARY | 2022-01-07 13:14 | XMS_ITS | Encounter Summary ---
:1980 Author Organization [place] Address [address] [facility] [place] [address] Care Team Providers Name Role Phone Bebeto Roth MD Unavailable Astrid Rios PA-C Unavailable Keri Elias MD Primary Care Provider Unavailable Reason for Referral Diagnostic Imaging XR - Closed Specialty Diagnoses / Procedures Referred By Contact Refer red To Contact Diagnoses S/P spinal fusion Bebeto Roth MD Procedures XR Six Foot Standing Extremities [address] [address] Referral ID Status Reason Start Date Expiration Date Visits Requ ested Visits Authorized [id number] Closed 11/06/2017 11/06/2018 1 1 Diagnostic Imaging XR - Closed Specialty Diagnoses / Procedures Referred By Contact Refer red To Contact Diagnoses S/P spinal fusion Bebeto Roth MD Procedures XR Spine Complete 2 Views [address] [place], [place] [address] Referral ID Status Reason Start Date Expiration Date Visits Requ ested Visits Authorized [id number] Closed 11/06/2017 11/06/2018 1 1 Encounter Details Date Type Department Care Team Description 11/06/2017 Orders Only [facility] Orthopaedic Bebeto Roth S/P spi nal fusion Clinic MD Devan (Primary Dx) [address] [place] [address] [place] [address] [phone] Social History Tobacco Use Types Packs/Day Years [...] No substantial global coronal imbalance. Sagittal Vertical [place] (A vertical line drawn from the center [...] No substantial global coronal imbalance. Sagittal Vertical [place] (A vertical line drawn from the center [...] No substantial global coronal imbalance. Sagittal Vertical [place] (A vertical line drawn from the center [...] No substantial global coronal imbalance. Sagittal Vertical [place] (A vertical line drawn from the center [...] status documented in this encounter Care Teams Miller Helper Distillery Relationship Specialty Start Date End Date Keri Elias PCP - General Family Practice 03/12/15 9 MD Ira Glez, Bebeto Hartman MD Orthopedics 07/09/14 [facility] [address] Astrid Rios PA-C Physician Site Director Physician Site Director - 07/09/14 Surgical documented as of this encounter
--- OUTSIDE RECORDS SUMMARY | 2022-01-07 13:15 | XMS_ITS | Encounter Summary ---
:1980 Author Organization [place] Address [address] [facility] [place] [address] Care Team Providers Name Role Phone Bebeto Roth MD Unavailable Astrid Rios PA-C Unavailable Keri Elias MD Primary Care Provider Unavailable Reason for Visit Reason Comments Care Encounter Details Date Type Department Care Team Description 02/21/2017 Office Visit Narda Mcleod Keri Elias of [facility] MD [place] risk , [address], antepar mauricio (Primary [address] Dx) [place], [place] [address] Social History Tobacco Use Types Packs/Day Years Used Date Smoking Tobacco: Never Smokeless Tobacco: Never Alcohol Use Standard Drinks/Week Comments No 0 (1 standard drink = 0.6 oz pure alcoho l) Sex Assigned at Date Recorded Not on file documented as of this encounter Last Filed Vital Signs Vital Sign Reading Time Taken Comments Blood Pressure 114/78 02/21/2017 7:51 AM [facility]PITAL [facility] Pulse 93 02/21/2017 7:51 AM HOSPITAL LIBRARIAN Temperature 36.9 ??C (98.5 ??F) 02/21/2017 7:51 AM HOSPITAL LIBRARIAN Respiratory Rate 18 02/21/2017 7:51 AM HOSPITAL LIBRARIAN Oxygen Saturation 99% 02/21/2017 7:51 AM HOSPITAL [facility]RARIAN Inhaled Oxygen Concentration - - Weight 80.3 kg (177 lb) 02/21/2017 7:51 AM HOSPITAL LIBRARIAN Height - - Body Mass Index 31.35 [...] with the final plan. Keri Elias MD ITAL LIBRARIAN documented in this encounter Plan of Treatment Not on filedocumented as of this encounter Visit Diagnoses Diagnosis Supervision of high risk , ante - Primary documented in this encounter Care Teams Floor Trader Relationship Specialty Start Date End Date Keri Elias PCP - General Family Practice 03/12/15 9 MD Ira Glez David Wayne, MD Orthopedics 07/09/[address] [place] [address] Astrid Rios PA-C Physician Handle Maker Physician Handle Maker - 07/09/14 Surgical documented as of this encounter
--- OUTSIDE RECORDS SUMMARY | 2022-01-07 13:15 | XMS_ITS | Encounter Summary ---
:1980 Author Organization [place] Address [facility] [place] [address] Care Team Providers Name Role Phone Bebeto Roth MD Unavailable Astrid Rios PA-C Unavailable Keri Elias MD Primary Care Provider Unavailable Encounter Details Date Type Department Care Team Description 09/29/2017 Allied Health/Nurse [facility] Preoperative Rn, Pac Visit Assessment Center [address] [place] [address] 5th Floor [place] [address] [phone] Social History Tobacco Use Types Packs/Day [...] Arrival time: 5:30 am Please come to: [facility] [address] [place] [address] -Director Of Career Services parking is available in front of [facility] from 5:15AM to 8:00PM. If you prefer, park your car in the Green Lot. -Proceed to the 3rd floor, check in at the Adult Surgery Waiting Lounge. [phone] If an escort is needed stop at [...] - Do NOT wear any makeup, fingernail greenlandic or jewelry. - Begin using Incentive Spirometer 1 week prior to surgery. Use 4 times per day, up to 5-10 breaths each time. Bring Incentive Spirometer to hospital. Questions or Concerns: If you have questions or concerns prior to your surgery, call [phone]. (Mon - Fri 8 am- 5:30 pm) [...] on filedocumented in this encounter Care Teams Truck Trailer Mechanic Relationship Specialty Start Date End Date Keri Elias PCP - General Family Practice 03/12/15 9 MD Ira Glez David Wayne, MD Orthopedics 07/09/[address] [place] [address] Astrid Rios PA-C Physician Magento Developer Physician Magento Developer - 07/09/14 Surgical documented as of this encounter
--- OUTSIDE RECORDS SUMMARY | 2022-01-07 13:15 | XMS_ITS | Encounter Summary ---
:1980 Author Organization [place] Address [facility] [place] [address] Care Team Providers Name Role Phone Bebeto Roth MD Unavailable Astrid Rios PA-C Unavailable Keri Elias MD Primary Care Provider Unavailable Reason for Visit Diagnostic Imaging XR - Closed Specialty Diagnoses / Procedures Referred By Contact Refer red To Contact Diagnoses S/P spinal fusion Bebeto Roth MD Procedures XR Spine Complete 2 Views [address] [place], [place] [address] Referral ID Status Reason Start Date Expiration Date Visits Requ ested Visits Authorized [id number] Closed 06/28/2017 06/28/2018 1 1 Encounter Details Date Type Department Care Team Description 06/29/2017 Radiant Appointment [facility] Orthopaedics Bebeto Roth S/P spinal fusion XRay MD Devan [address] [facility] [address] 4th [address] [facility], [address] [place] [address] [phone] Social History Tobacco Use Types Packs/Day Years [...] No substantial global coronal imbalance. Sagittal Vertical [place] (A vertical line drawn from the center [...] No substantial global coronal imbalance. Sagittal Vertical [place] (A vertical line drawn from the center [...] status documented in this encounter Care Teams Alternative Education Teacher Relationship Specialty Start Date End Date MeghaAlexa Tysonne PCP - General Family Practice 03/12/15 9 MD Ira Glez David Wayne, MD Orthopedics 07/09/[address] [place] [address] Astrid Rios PA-C Physician Booking Police Officer Physician Booking Police Officer - 07/09/14 Surgical documented as of this encounter
--- OUTSIDE RECORDS SUMMARY | 2022-01-07 13:15 | XMS_ITS | Encounter Summary ---
:1980 Author Organization [place] Address [address] [facility] [place] [address] Care Team Providers Name Role Phone Bebeto Roth MD Unavailable Astrid Rios PA-C Unavailable Keri Elias MD Primary Care Provider Unavailable Reason for Referral Diagnostic Imaging XR - Closed Specialty Diagnoses / Procedures Referred By Contact Refer red To Contact Diagnoses S/P spinal fusion Bebeto Roth MD Procedures XR Spine Complete 2 Views [address] [address] Referral ID Status Reason Start Date Expiration Date Visits Requ ested Visits Authorized [id number] Closed 06/28/2017 06/28/2018 1 1 Diagnostic Imaging XR - Closed Specialty Diagnoses / Procedures Referred By Contact Refer red To Contact Diagnoses S/P spinal fusion Bebeto Roth MD Procedures XR Spine Complete 2 Views [address] [place], [place] [address] 4 Referral ID Status Reason Start Date Expiration Date Visits Requ ested Visits Authorized [id number] Closed 06/28/2017 06/28/2018 1 1 Encounter Details Date Type Department Care Team Description 06/28/2017 Orders Only [facility] Orthopaedic Bebeto Roth S/P spi nal fusion Clinic MD Devan (Primary Dx) [address] [place] [address] 4th [address] [place] [address] [phone] Social History Tobacco Use Types Packs/Day Years [...] No substantial global coronal imbalance. Sagittal Vertical [place] (A vertical line drawn from the center [...] No substantial global coronal imbalance. Sagittal Vertical [place] (A vertical line drawn from the center [...] No substantial global coronal imbalance. Sagittal Vertical [place] (A vertical line drawn from the center [...] No substantial global coronal imbalance. Sagittal Vertical [place] (A vertical line drawn from the center [...] documented in this encounter Care Teams Dental Practice Manager Relationship Specialty Start Date End Date Keri Elias PCP - General Family Practice 03/12/15 9 MD Ira Glez David Wayne, MD Orthopedics 07/09/[address] [place] [address] Astrid Rios PA-C Physician Assistant Chief Of Police Physician Assistant Chief Of Police - 07/09/14 Surgical documented as of this encounter
--- OUTSIDE RECORDS SUMMARY | 2022-01-07 13:15 | XMS_ITS | Encounter Summary ---
:1980 Author Organization [place] Address [facility] [place] [address] Care Team Providers Name Role Phone Bebeto Roth MD Unavailable Astrid Rios PA-C Unavailable Keri Elias MD Primary Care Provider Unavailable Reason for Visit Diagnostic Imaging XR - Closed Specialty Diagnoses / Procedures Referred By Contact Refer red To Contact Diagnoses S/P spinal fusion Bebeto Roth MD Procedures XR Leg Length Evaluation [address] [place], [place] [address] Referral ID Status Reason Start Date Expiration Date Visits Requ ested Visits Authorized [id number] Closed 06/29/2017 06/29/2018 1 1 Encounter Details Date Type Department Care Team Description 06/29/[address] [facility] Imaging Bebeto Roth S/P spinal fusion Center Farhana MD Devan 9 [facility] [address] [place] [address] [phone] Social History Tobacco Use Types Packs/Day Years [...] No substantial global coronal imbalance. Sagittal Vertical [place] (A vertical line drawn from the center [...] No substantial global coronal imbalance. Sagittal Vertical [place] (A vertical line drawn from the center [...] status documented in this encounter Care Teams Account Manager [id number] Relationship Specialty Start Date End Date MeghaAlexa Tysonne PCP - General Family Practice 03/12/15 9 MD Ira Glez David Wayne, MD Orthopedics 07/09/[address] [address] Astrid Rios PA-C Physician Inspector And Sorter Physician Inspector And Sorter - 07/09/14 Surgical documented as of this encounter
--- OUTSIDE RECORDS SUMMARY | 2022-01-07 13:15 | XMS_ITS | Encounter Summary ---
:1980 Author Organization [place] Address [facility] [place] [address] Care Team Providers Name Role Phone Bebeto Roth MD Unavailable Astrid Rios PA-C Unavailable Keri Elias MD Primary Care Provider Unavailable Reason for Visit Reason Comments RECHECK 3 weeks post-, pt here to follow up in mid back fusion, s/p PSF T10-L3 10/12/09 Encounter Details Date Type Department Care Team Description 03/30/2017 Office Visit [facility] [place] [facility]acolumbar region (Primary Dx); Clinic MD Devan S/P spinal fusion [address] [place] [address] [address] [place] [address] [phone] Social History Tobacco Use Types Packs/Day Years [...] 71.7 kg (158 lb) 03/30/2017 12:31 PM OPENER Height 160.7 cm (5' 3.25) 03/30/2017 12:31 PM OPENER Body Mass Index 27.77 03/30/2017 12:31 PM OPENER documented in this encounter Progress Notes Bebeto [...] Joint stiffness: No Bone fracture: No ER documented in this encounter Nursing Notes Kathleen Trotter CMA - 03/30/2017 12:30 PM CST Reason For Visit: Chief Complaint Patient presents with ??? RECHECK 3 weeks post-, pt here to follow up in mid back fusion, s/p PSF T10-L3 10/12/09 Primary MD: Keri Elias MD: Self Referred Yarn Packer? 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 Yes. 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 Date of injury: None Type of injury: [...] be hidden Kathleen Trotter CMA 03/30/2017 ER documented in this encounter Plan of Treatment Not on filedocumented as of this encounter Visit Diagnoses Diagnosis Adolescent idiopathic scoliosis of [facility] region - Primary Scoliosis (and kyphoscoliosis), idiopath ic S/P spinal fusion Arthrodesis status documented in this encounter Care Teams Senior Information Developer Relationship Specialty Start Date End Date Keri Elias PCP - General Family Practice 03/12/15 9 MD Ira Glez David Wayne, MD Orthopedics 07/09/[address] [place] [address] Astrid Rios PA-C Physician Police Aide Physician Police Aide - 07/09/14 Surgical documented as of this encounter
--- OUTSIDE RECORDS SUMMARY | 2022-01-07 13:15 | XMS_ITS | Encounter Summary ---
:1980 Author Organization [place] Address [facility] [place] [address] Care Team Providers Name Role Phone Bebeto Roth MD Unavailable Astrid Rios PA-C Unavailable Keri Elias MD Primary Care Provider Unavailable Reason for Visit Diagnostic Imaging XR - Closed Specialty Diagnoses / Procedures Referred By Contact Refer red To Contact Diagnoses S/P spinal fusion Bebeto Roth MD Procedures XR Spine Complete 2 Views [address] [place], [place] [address] Referral ID Status Reason Start Date Expiration Date Visits Requ ested Visits Authorized [id number] Closed 06/28/2017 06/28/2018 1 1 Encounter Details Date Type Department Care Team Description 06/29/2017 Radiant Appointment [facility] Imaging Bebeto Roth S/P spinal fusion Center Farhana MD Devan 9 [facility] [address] [place] [address] [phone] Social History Tobacco Use Types Packs/Day Years [...] No substantial global coronal imbalance. Sagittal Vertical [place] (A vertical line drawn from the center [...] No substantial global coronal imbalance. Sagittal Vertical [place] (A vertical line drawn from the center [...] Stable appearance of fusion instrumen tation T10-L3. DANILE TORRES MD (Joe) Bebeto Roth MD IMG DIAGNOSTIC IMAGING ORDER TAYLOR documented in this encounter Visit Diagnoses Diagnosis S/P spinal fusion Arthrodesis status documented in this encounter Care Teams Electrical Contractor Relationship Specialty Start Date End Date MeghaAlexa Tysonne PCP - General Family Practice 03/12/15 9 MD Ira Glez David Wayne, MD Orthopedics 07/09/[address] [place] [address] Astrid Rios PA-C Physician Lvn Lpn Physician Lvn Lpn - 07/09/14 Surgical documented as of this encounter
--- OUTSIDE RECORDS SUMMARY | 2022-01-07 13:15 | XMS_ITS | Encounter Summary ---
:1980 Author Organization [place] Address [address] [facility] [place] [address] Care Team Providers Name Role Phone Bebeto Roth MD Unavailable Astrid Rios PA-C Unavailable Keri Elias MD Primary Care Provider Unavailable Francisco Metz MD Primary Care Provider [phone] Francisco Metz MD Unavailable [phone] Kenton Katz MD Unavailable Unavailable Karen Veliz DO Primary Care Provider Kenton Katz MD Unavailable Unavailable Karen Veliz DO Unavailable Reason for Visit Reason Onset Date Comments Outreach 03/13/2017 Rtn no show #2 Encounter Details Date Type Department Care Team Description 03/13/2017 Telephone [facility] Keri Elias (Rtn no show Medicine Clinic MD [place] #2 ) [address], [address] [place], [place] [address] Social History Tobacco Use Types Packs/Day Years [...] some of your recently scheduled appointments. At [facility] we have a new no show policy, where if you miss too many appointments within 1 year, we may not be able to continue to schedule you. If you are unable to make your scheduled appointments, please call the clinic to cancel prior to your appointment time. SHOOK PATCHER documented in this encounter Plan of Treatment Not on filedocumented as of this encounter Visit Diagnoses Not on filedocumented in this encounter Care Teams Chemist Steroids Relationship Specialty Start Date End Date Keri Elias PCP - General Family Practice 03/12/15 9 MD Isaías Glez Mitchell PCP - General Family Practice 11/14/18 04/02/20 MD Stevie Karen Veliz, PCP - General Family Medicine 04/03/202019 [place] [address] Bebeto Roth MD Orthopedics 07/09/14 [facility] [address] [place] [address] Astrid Rios PA-C Physician Newsperson Physician Newsperson - 07/09/14 Surgical Francisco Metz Assigned PCP 07/04/19 02/01/20 MD Stevie [address] [place] [address] Kenton Katz Assigned PCP 02/02/20 08/27/20 MD Feliberto NO INFO AVAILABLE Kenton Katz Assigned Endocrinology 08/28/20 07/23/21 MD Feliberto Provider NO INFO AVAILABLE Karen Veliz, Assigned PCP 08/28/202019 [place] [address] documented as of this encounter
--- OUTSIDE RECORDS SUMMARY | 2022-01-07 13:15 | XMS_ITS | Encounter Summary ---
:1980 Author Organization [place] Address [address] [place] [address] Care Team Providers Name Role Phone Bebeto Roth MD Unavailable Astrid Rios PA-C Unavailable Keri Elias MD Primary Care Provider Unavailable Reason for Visit Reason Comments Pre-Op Exam Encounter Details Date Type Department Care Team Description 09/29/2017 Office Visit [facility] Cameron Manjarrez [facility] general Assessment Center BLAYNE Ramirez GRAIN [employer] YEAST PLANTS SUPERVISOR physical exam [address] [facility] [address] [facility] (Primary Dx) 5th Floor [place], [place] [id number] Anesthesia Record Procedure Summary Procedure Name [...] this encounter H&P Notes Cameron Manjarrez APRN NUT SIFTER - 09/29/2017 10:00 AM CDT Images from [...] preparationfor Extension Of Fusion Thoracic 10- Thoracic /, Rivera [facility] Osteotomies Thoracic 1-10 on 10/23/[address] Roth in treatment of scoliosis at [facility]. History is obtained from the patient. [...] morning ??? fluticasone (FLONASE) 50 MCG/ACT spray [place] 1-2 sprays into both nostrils daily (Patient takingdifferently: [place] 1-2 sprays into both nostrils as needed [...] Neg Test Valid Only At Latest Units: [facility] Specimen Expires Unknown 10/02/2017 Color Urine Unknown Yellow Appearance Urine Unknown Clear Glucose Urine Latest Ref Range: NEG^Negative mg/dL Negative Bilirubin Urine Latest Ref Range: NEG^Negative Negative Ketones Urine Latest Ref Range: NEG^Negative mg/dL Negative Specific [place] Urine Latest Ref Range: 1.003 - 1.035 [...] Dr Shaikh. BLAYNE Palomino Preoperative Assessment Center [facility] documented in this encounter Plan of Treatment Not on filedocumented as of this encounter Results (ABNORMAL) UA reflex to Microscopic and Culture (09/29/2017 12:11 PM CDT) [facility] Time Signature Color Urine Yellow 09/29/2017 [facility] 12[facility]41 PM [facility] Appearance Urine Clear 09/29/2017 [facility] 12:41 PM [facility] Glucose Urine Negative NEG^Negat 09/29/2017 [facility] mg/dL 12:41 PM [facility] Bilirubin Urine Negative NEG^Negat 09/29/2017 [facility] franco 12:41 PM [facility] Ketones Urine Negative NEG^Negat 09/29/2017 [facility] [place] mg/dL 12:41 PM [facility] Specific [place] 1.013 1.003 - 09/29/2017 [facility] Urine 1.035 12:41 PM [facility] Blood Urine Large (A) NEG^Negat 09/29/2017 [facility] franco 12:41 PM [facility] pH Urine 6.0 5.0 - 7.0 09/29/2017 [facility] pH 12:41 PM [facility] Protein Albumin Negative NEG^Negat 09/29/2017 [facility] Urine franco mg/dL 12:41 PM [facility] Urobilinogen 0.0 0.0 - 2.0 09/29/2017 [facility] mg/dL mg/dL 12:41 PM [facility] Nitrite Urine Negative NEG^Negat 09/29/2017 [facility] [place]anco 12:41 PM [facility] Leukocyte Negative NEG^Negat 09/29/2017 [facility] Esterase Urine franco 12:41 PM [facility] Source Midstream 09/29/2017 [facility] Urine 12:16 PM [facility] RBC Urine 3 (H) 0 - 2 09/29/2017 [facility] /HPF 12:41 PM [facility] WBC Urine 1 0 - 5 09/29/2017 [facility] /HPF 12:41 PM [facility] Squamous 3 (H) 0 - 1 09/29/2017 [facility] Epithelial /HPF /HPF 12:41 PM [place] Urine [facility] Transitional Epi <1 (A) FEW^Few 09/29/2017 [facility] /HPF 12:41 PM [facility] Mucous Urine Present (A) NEG^Negat 09/29/2017 [facility] [place] /LPF 12:41 PM [facility] Specimen (Source) Anatomical Collection Method Collection Time Re ceived Time Location / / Volume Laterality Examination of 09/29/2017 12:11 8 midstream urine PM CDT 12:16 PM CDT specimen (procedure) Cameron Manjarrez APRN, CNP LAB - URINE ORDERABLES Performing Organization Address City/[facility]/ZIP Code Phon e Number [address] [address] [facility] Hemoglobin A1c (09/29/2017 12:03 PM CDT) P athologist Signature Hemoglobin A1C 5.3 0 - 5.6 % 09/29/2017 [facility] 12:48 PM CDT [facility] Comment: Normal <5.7% Prediabetes 5.7-6.4% ??Diab etes 6.5% or higher - adopted from ADA consensus guidelines. Specimen Anatomical Collection Method Collection Time Receive d Time (Source) Location / / Volume Laterality Blood specimen 09/29/2017 12:03 8 (specimen) PM CDT 12:04 PM CDT Cameron Manjarrez APRN [employer] YE[employer]ANT[employer] SUPERVISOR LAB - BLOOD ORDERABLES Performing Organization Address City/[facility]/ZIP Code Phon e Number [phone] [place] [address] [facility] INR (09/29/2017 12:03 PM CDT) P athologist Signature INR 1.02 0.86 - 1.14 09/29/2017 [facility] 12:28 PM CDT [facility] Specimen Anatomical Collection Method Collection Time Receive d Time (Source) Location / / Volume Laterality Blood specimen 09/29/2017 12:03 8 (specimen) PM CDT 12:04 PM CDT Cameron Manjarrez APRN, CNP LAB - BLOOD ORDERABLES Performing Organization Address City/[facility]/ZIP Code Phon e Number [phone] [place] [address] [facility] (ABNORMAL) CBC with platelets (09/29/2017 12:03 PM CDT) Patholo gist Method Time Signature WBC 4.8 4.0 - 11.0 09/29/2017 [facility] 10e9/L 12:18 PM CDT [facility] RBC Count 4.87 3.8 - 5.2 09/29/2017 [facility] 10e12/L 12:18 PM CDT [facility] Hemoglobin 12.5 11.7 - 09/29/2017 [facility] 15.7 g/dL 12:18 PM CDT [facility] Hematocrit 39.4 35.0 - 09/29/2017 [facility] 47.0 % 12:18 PM CDT [facility] MCV 81 78 - 100 09/29/2017 [facility] fl 12:18 PM CDT [facility] MCH 25.7 (L) 26.5 - 09/29/2017 [facility] 33.0 pg 12:18 PM CDT [facility] MCHC 31.7 31.5 - 09/29/2017 [facility] 36.5 g/dL 12:18 PM CDT [facility] RDW 13.8 10.0 - 09/29/2017 [facility] 15.0 % 12:18 PM CDT [facility] Platelet Count 332 150 - 450 09/29/2017 [facility] 10e9/L 12:18 PM CDT [facility] Specimen Anatomical Collection Method Collection Time Receive d Time (Source) Location / / Volume Laterality Blood specimen 09/29/2017 12:03 8 (specimen) PM CDT 12:04 PM CDT Cameron Manjarrez APRN [employer] YE[employer] PLANT[employer] SUPERVISOR LAB - BLOOD ORDERABLES Performing Organization Address City/State/ZIP Code Phon e Number [address] [address] [facility] Basic metabolic panel (09/29/2017 12:03 PM CDT) P athologist Signature Sodium 141 133 - 144 09/29/2017 [facility] mmol/L 12:40 PM CDT [facility] Potassium 3.6 3.4 - 5.3 09/29/2017 [facility] mmol/L 12:40 PM CDT [facility] Chloride 106 94 - 109 09/29/2017 [facility] mmol/L 12:40 PM CDT [facility] Carbon Dioxide 28 20 - 32 09/29/2017 [facility] mmol/L 12:40 PM CDT [facility] Anion Gap 7 3 - 14 09/29/2017 [facility] mmol/L 12:40 PM CDT [facility] Glucose 90 70 - 99 09/29/2017 [facility] mg/dL 12:40 PM CDT [facility] Urea Nitrogen 12 7 - 30 09/29/2017 [facility] mg/dL 12:40 PM CDT [facility] Creatinine 0.85 0.52 - 09/29/2017 [facility] 1.04 mg/dL 12:40 PM CDT [facility] GFR Estimate 76 >60 09/29/2017 [facility] mL/min/1.7 12:[address] Comment: Non GFR Calc GFR Estimate If >90 >60 mL/min/1.7m2 09/29/2017 12:40 PM [facility] Black CDT [facility] Comment: GFR Calc Calcium 8.8 8.5 - 10.1 mg/dL 09/29/2017 12:40 PM CDT [facility] Specimen Anatomical Collection Method Collection Time Receive d Time (Source) Location / / Volume Laterality Blood specimen 09/29/2017 12:03 8 (specimen) PM CDT 12:04 PM CDT Cameron Manjarrez APRN GRA[employer] YE[employer] PLANT[employer] SUPERVISOR LAB - BLOOD ORDERABLES Performing Organization Address City/State/ZIP Code Phon e Number [address] [address] [facility] ABO/Rh type and screen (09/29/2017 12:03 PM CDT) [facility] gist Method Time Signature ABO O 09/29/2017 [facility] 1:31 PM CDT [facility] RH(D) Pos [facility] Antibody Neg 09/29/2017 [facility] Screen 1:31 PM CDT [facility] Test Valid [facility] 09/29/2017 [facility] 12:46 PM CDT [facility] Hospital Specimen 10/26/2017 10/23/2017 [facility] Expires 6:57 AM CDT [facility] Blood Bank Pre admission 09/29/2017 [facility] Comment form received 4:[address] [facility] 09/29/17 for [facility] 10/23/17. AA Specimen Anatomical Collection Method Collection Time Receive d Time (Source) Location / / Volume Laterality Blood specimen 09/29/2017 12:03 8 (specimen) PM CDT 12:04 PM CDT Cameron Cruzon EQUINE MANAGER [employer] YE[employer] PLANT[employer] SUPERVISOR LAB - BLOOD BANK TEST ORDER Performing Organization Address City/State/ZIP Code Phon e Number [facility] [address] [place] [address] [facility] [address] [place] [address] [facility] documented in this encounter Visit Diagnoses Diagnosis Preop general physical exam - Primary Other specified pre-operative examinatio n documented in this encounter Care Teams Handy Man Relationship Specialty Start Date End Date Keri Elias PCP - General Family Practice 03/12/15 9 MD Ira Glez David Wayne, MD Orthopedics 07/09/14 [facility] [address] [place], [place] [address] Astrid Rios PA-C Physician Blood Bank Custodian Physician Blood Bank Custodian - 07/09/14 Surgical documented as of this encounter
--- OUTSIDE RECORDS SUMMARY | 2022-01-07 13:15 | XMS_ITS | Encounter Summary ---
:1980 Author Organization [place] Address [address] [place] [address]. [place] [address] Care Team Providers Name Role Phone Bebeto Roth MD Unavailable Astrid Rios PA-C Unavailable Keri Elias MD Primary Care Provider Unavailable Reason for Visit Reason Comments Rule Out Labor Auth/Cert Specialty Diagnoses / Procedures Referred By Contact Refer red To Contact Obstetrics Diagnoses Maternity*VINCENT 03/08/2017/Labor Encounter for triage in patient Labor and delivery, indication for care (normal spontaneous vaginal delivery) [address] [address] Phone: Referral ID Status Reason Start Date Expiration Date Visits Requ ested Visits Authorized [id number] 1 1 Encounter Details Date Type Department Care Team Description 03/05/[address] [facility] Keri Elias Frequent UTI Birthplace MD [place] [address] [place] [address] Social History Tobacco Use Types Packs/Day Years Used Date Smoking Tobacco: Never Smokeless Tobacco: Never Alcohol Use Standard Drinks/Week Comments No 0 (1 standard drink = 0.6 oz pure alcoho l) Sex Assigned at Date Recorded Not on file documented as of this encounter Last Filed Vital Signs Vital Sign Reading Time Taken Comments Blood Pressure 121/75 03/05/2017 9:15 AM LITHOGRAPHIC ETCHER Pulse 107 03/05/2017 9:15 AM LITHOGRAPHIC ETCHER Temperature 37.2 ??C (99 ??F) 03/05/2017 9:15 AM LITHOGRAPHIC ETCHER Respiratory Rate 16 03/05/2017 9:15 AM LITHOGRAPHIC ETCHER Oxygen Saturation - - Inhaled Oxygen Concentration - - Weight 79.9 kg (176 lb 3.2 oz) 03/05/2017 9:15 AM LITHOGRAPHIC ETCHER Height - - Body Mass Index 31.21 [...] felt your baby move all day. ?? [id number] [employer]. [address] [place] [address]. All rights reserved. This information is not intended as a substitute for professional medical care. Always follow your healthcare professional's instructions. This information has been modified by your health care provider with permission from the publisher. OGRAPHIC ETCHER documented in this encounter Medications at Time [...] Abnormal maternal glucose tolerance, antepartum fluticasone (FLONASE) [place] 1-2 sprays into 16 g 3 07/05/2017 [...] Shreya. Outpatient w no procedure - Charge. OGRAPHIC ETCHER Rivka Cantu RN - 03/05/2017 9:52 AM [...] Olson to SVE and review tracing. VSS. OGRAPHIC ETCHER documented in this encounter H&P Notes Keri Elias MD - 03/05/2017 9:30 AM CST Images from the original note were not included. [facility] Ob Admit /Triage Note Azul Tellez [...] Negative Negative for C. trachomatis rRNA by zone maintenance technician mediated amplification. A negative result by zone maintenance technician mediated amplification does not preclude the presence of C. trachomatis infection because results are dependent on proper and adequate collection, absence of inhibitors, and sufficient rRNA to be detected. [facility] 08/05/2016 Negative Negative for N. gonorrhoeae rRNA by zone maintenance technician mediated amplification. A negative result by zone maintenance technician mediated amplification does not preclude the presence [...] Date ??? C SPINAL FUSION,ANT,EA ADNL LEVEL 2009 Family History: Family History Problem Relation Age of Onset ??? Family History Negative Other Social History: no tobacco use no alcohol use no illicit drug use Medications: No current facility-administered medications on file prior to encounter. Current Outpatient Prescriptions on File Prior to Encounter: fluticasone (FLONASE) 50 MCG/ACT spray [place] 1-2 sprays into both nostrils daily amoxicillin [...] Diagnosis ??? Adolescent idiopathic scoliosis ??? [facility] ??? Acne vulgaris ??? Anxiety ??? Congenital [...] she wishes. DO Kenia Rowanlaila [facility] Satellite Attestation: This patient has been seen and evaluated by me, Keri Elias on 03/05/2017. I saw and discussed the case with the primary resident the care team. I agree with the findings and plan in this note. I have reviewed today's vital signs, medications, laboratory results. [facility] OGRAPHIC ETCHER documented in this encounter Plan of Treatment Not on filedocumented as of this encounter Visit Diagnoses Diagnosis Frequent UTI Urinary tract infection, site not specif ied Encounter for triage in patient documented in this encounter Care Teams Swift Tender Relationship Specialty Start Date End Date Keri Elias PCP - General Family Practice 03/12/15 9 MD Ira Glez David Wayne, MD Orthopedics 07/09/[address] [place], [place] [address] [place] [address] Astrid Rios PA-C Physician Spoke Maker Physician Spoke Maker - 07/09/14 Surgical documented as of this encounter
--- OUTSIDE RECORDS SUMMARY | 2022-01-07 13:15 | XMS_ITS | Encounter Summary ---
:1980 Author Organization [place] Address [address] [facility] [place] [address] Care Team Providers Name Role Phone Bebeto Roth MD Unavailable Astrid Rios PA-C Unavailable Keri Elias MD Primary Care Provider Unavailable Reason for Referral - Closed Specialty Diagnoses / Procedures Referred By Contact Refer red To Contact Diagnoses Adolescent idiopathic scoliosis of thoracolumbar region S/P spinal fusion Other kyphosis of thoracic region Bebeto Roth MD [address] [place], [place] [address] Referral ID Status Reason Start Date Expiration Date Visits Requ ested Visits Authorized [id number] Closed 06/29/2017 06/29/2018 1 1 Reason for Visit Reason Comments RECHECK follow up mid back fusion. d iscuss surgery. DOS 10-12-2009 PSF T10-L3 Encounter Details Date Type Department Care Team Description 06/29/2017 Office Visit [facility] Orthopaedic Bbeeto Roth [facility] ent idiopathic scoliosis of thoracolumbar region (Primary Dx); Clinic MD Devan S/P spinal fusion; 9 [facility] [address] Other kyphosis of thoracic r egion [address]th [address] [place] [address] [phone] Social History Tobacco Use Types Packs/Day Years [...] that it is perhaps somewhere in the in 2000 range. She will need some [...] T10-L3 SRS SCORE: 63% Primary MD: Keri Elias. MD: Self Referred ?? Agency Owner? No ?? 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 Yes. 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 ?? Date of injury: None Type of [...] (willing/able to accept information): Yes Any cultural factors/mosque beliefs that may influence understanding or compliance? [...] Referral Routine Adolescent idiopathic Ordered: 06/29/2017 (For [facility] Only) scoliosis of thoracolumba r region S/P spinal fusio n Other kyphosis of thoracic region documented as of this encounter Visit Diagnoses Diagnosis Adolescent idiopathic scoliosis of thora columbar region - Primary Scoliosis (and kyphoscoliosis), idiopath ic S/P spinal fusion Arthrodesis status Other kyphosis of thoracic region documented in this encounter Care Teams Food Checkers And Cashiers Supervisor Relationship Specialty Start Date End Date Keri Elias PCP - General Family Practice 03/12/15 9 MD Ira Glez David Wayne, MD Orthopedics 07/09/14 [facility] [facility] [address] [place] [address] Astrid Rios PA-C Physician Windows Mobile Developer Physician Windows Mobile Developer - 07/09/14 Surgical documented as of this encounter
--- OUTSIDE RECORDS SUMMARY | 2022-01-07 13:15 | XMS_ITS | Encounter Summary ---
:1980 Author Organization [place] Address [address] [facility] [place] [address] Care Team Providers Name Role Phone Bebeto Roth MD Unavailable Astrid Rios PA-C Unavailable Keri Elias MD Primary Care Provider Unavailable Reason for Visit Reason Onset Date Comments Schedule Surgery 07/20/2017 Dr. Roth Encounter Details Date Type Department Care Team Description 07/20/2017 Telephone [facility] Orthopaedic Bebeto Roth Surgery (MD Ira Gardner) [address] [place] [id number] Social History Tobacco Use Types Packs/Day Years [...] Patient has been scheduled for 10/24/17 at [place]. She will see PAC for her pre-op H&P on 09/29/17. documented in this encounter Plan of Treatment Not on filedocumented as of this encounter Visit Diagnoses Not on filedocumented in this encounter Care Teams Ems Manager Relationship Specialty Start Date End Date Keri Elias PCP - General Family Practice 03/12/15 9 MD Ira Glez David Wayne, MD Orthopedics 07/09/[address] [address] Astrid Rios PA-C Physician Laborer Pipeline Physician Laborer Pipeline - 07/09/14 Surgical documented as of this encounter
--- OUTSIDE RECORDS SUMMARY | 2022-01-07 13:15 | XMS_ITS | Encounter Summary ---
:1980 Author Organization [place] Address [facility] [place] [address] Care Team Providers Name Role Phone Bebeto Roth MD Unavailable Astrid Rios PA-C Unavailable Keri Elias MD Primary Care Provider Unavailable Reason for Referral Diagnostic Imaging XR - Closed Specialty Diagnoses / Procedures Referred By Contact Refer red To Contact Diagnoses S/P spinal fusion Bebeto Roth MD Procedures XR Spine Complete [address] [place], [place] [address] Referral ID Status Reason Start Date Expiration Date Visits Requ ested Visits Authorized [id number] Closed 03/27/2017 03/27/2018 1 1 IDER RELATIONS ADVOCATE Encounter Details Date Type Department Care Team Description 03/27/2017 Orders Only [facility] Orthopaedic Bebeto Roth S/P spi nal fusion Clinic MD Devan (Primary Dx) 9 [facility] [address] [place] [address] [phone] Social History Tobacco Use Types Packs/Day Years Used Date Smoking Tobacco: Never Smokeless Tobacco: Never Alcohol Use Standard Drinks/Week Comments No 0 (1 standard drink = 0.6 oz pure alcoho l) Sex Assigned at Date Recorded Not on file documented as of this encounter Plan of Treatment Not on filedocumented as of this encounter Results XR Spine Complete 2 Views (03/30/2017 12:40 PM PROVIDER RELATIONS ADVOCATE) Anatomical Region Laterality Modality Spine Computed Radiography Specimen (Source) Anatomical Location Collection Method / Collectio n Time Received Time / Laterality Volume Impressions 03/30/2017 1:17 PM PROVIDER RELATIONS ADVOCATE Impression: 1. Mild right convexed curvature of the main thoracic spine. 2. No ??global sagittal imbalance. 3. Weight bearing axis as detailed above . 4. Stable posterior instrumented fusion from T10 to L3 ALISHA POPE MD Narrative 03/30/2017 1:17 PM PROVIDER RELATIONS ADVOCATE EXAMINATION: XR SPINE COMPLETE 2 VW, XR [...] No substantial global coronal imbalance. Sagittal Vertical Thompson (A vertical line drawn from the center [...] No substantial global coronal imbalance. Sagittal Vertical Thompson (A vertical line drawn from the center [...] status documented in this encounter Care Teams Cigar Head Puncher Relationship Specialty Start Date End Date Keri Elias PCP - General Family Practice 03/12/15 9 MD Ira Glez, Bebeto Hartman MD Orthopedics 07/09/14 [facility] [place] [place] [address] Astrid Rios PA-C Physician Fibreglass Gun Hand Physician Fibreglass Gun Hand - 07/09/14 Surgical documented as of this encounter
--- OUTSIDE RECORDS SUMMARY | 2022-01-07 13:15 | XMS_ITS | Encounter Summary ---
:1980 Author Organization [place] Address [address] [facility] [place] [address] Care Team Providers Name Role Phone Bebteo Roth MD Unavailable Astrid Rios PA-C Unavailable Keri Elias MD Primary Care Provider Unavailable Reason for Visit Auth/Cert Specialty Diagnoses / Procedures Referred By Contact Refer red To Contact Obstetrics Diagnoses Maternity*VINCENT 03/08/2017/Labor Encounter for triage in patient Labor and delivery, indication for care (normal spontaneous vaginal delivery) [id number] [place] [address] Phone: Referral ID Status Reason Start Date Expiration Date Visits Requ ested Visits Authorized [id number] 1 1 Encounter Details Date Type Department Care Team Description 03/05/2017 Anesthesia Event [facility] Mauricio Hodges es Birthplace MD Flex [address] [address] [facility] [address] [place] [address] (Wo rk) Anesthesia Record Procedure Summary Procedure Name Responsible Anesthesia Start Time Anesthesia Stop Time Anesthesiologist LABOR ANALGESIA Taye Hodges MD Events Date Time Event Comment 03/05/20172107 Vitals doc by Nurse [id number] AN TIME IN 2121 AN TIME OUT 03/06/20174 Vitals doc by Nurse [id number] AN TIME IN 6 Quick Note Patient was expe riencing increased [...] of intravascular, subdural or intrathecal injection: Yes IONARY EQUIPMENT MECHANIC Anesthesia Procedure Notes - Taye Hodges MD - 03/05/2017 9:27 PM STATIONARY EQUIPMENT MECHANIC Associated Order(s): ANE UU EPIDURAL BLOCK Epidural [...] what appeared to be a normal space. IONARY EQUIPMENT MECHANIC Anesthesia Preprocedure Evaluation - Taye Hodges MD [...] risks, benefits and alternatives discussed with: Patient.. IONARY EQUIPMENT MECHANIC documented in this encounter Plan of Treatment Not on filedocumented as of this encounter Procedures Procedure Name Priority Date/Time Associated Diagnosis Comme nts ANE EPIDURAL BLOCK Routine 03/06/2017 12:36 AM STATIONARY EQUIPMENT MECHANIC Procedure Note - Sapna Hodges MD - [...] ANE EPIDURAL BLOCK Routine 03/05/2017 9:29 PM STATIONARY EQUIPMENT MECHANIC Procedure Note - Sapna Hodges MD - [...] (MARCAINE) 0.125 % Given 03/05/2017 9:22 PM STATIONARY EQUIPMENT MECHANIC 5 mL s injection (diluted from stock concentration by MD or MOLD FILLER) EPIDURAL, PRN, Starting on 03/05/17 at 9, Anesthesia Intra-op Given 03/05/2017 9:19 PM STATIONARY EQUIPMENT MECHANIC 5 mLs lidocaine-EPINEPHrine 1.5 %-[id number] inj ection Given 03/05/2017 9:18 PM STATIONARY EQUIPMENT MECHANIC 3 mLs EPIDURAL, PRN, Starting on 03/05/17 at 8, Anesthesia Intra-op documented in this encounter Care Teams Hand Drawer In Helper Relationship Specialty Start Date End Date Keri Elias PCP - General Family Practice 03/12/15 9 MD Ira Glez David Wayne, MD Orthopedics 07/09/[address] [facility] [place] [address] Astrid Rios PA-C Physician Supervisor Bit And Shank Department Physician Supervisor Bit And Shank Department - 07/09/14 Surgical documented as of this encounter
--- OUTSIDE RECORDS SUMMARY | 2022-01-07 13:15 | XMS_ITS | Encounter Summary ---
:1980 Author Organization [facility] Address [address] [place] [address]. [place] [address] Care Team Providers Name Role Phone Bebeto Roth MD Unavailable Astrid Rios PA-C Unavailable Keri Elias MD Primary Care Provider Unavailable Reason for Visit Reason Comments Laboring Auth/Cert Specialty Diagnoses / Procedures Referred By Contact Refer red To Contact Obstetrics Diagnoses Maternity*VINCENT 03/08/2017/Labor Encounter for triage in patient Labor and delivery, indication for care (normal spontaneous vaginal delivery) [address] [address] Phone: Referral ID Status Reason Start Date Expiration Date Visits Requ ested Visits Authorized [id number] 1 1 Encounter Details Date Type Department Care Team Description 03/05/2017 - Hospital Encounter [facility] Keri Elias MD (normal spontaneous vaginal delivery) (Primary Dx); 03/07/2017 [facility] Birthplace Lakisha Cantu DO [facility] [address] [place] [address] test positive [address] [place] [id number] Social History Tobacco Use Types Packs/Day Years Used Date Smoking Tobacco: Never Smokeless Tobacco: Never Alcohol Use Standard Drinks/Week Comments No 0 (1 standard drink = 0.6 oz pure alcoho l) Sex Assigned at Date Recorded Not on file documented as of this encounter Last Filed Vital Signs Vital Sign Reading Time Taken Comments Blood Pressure 105/76 03/07/2017 7:58 AM MARKET NEWS REPORTER Pulse 109 03/05/2017 5:34 PM MARKET NEWS REPORTER Temperature 36.6 ??C (97.8 ??F) 03/07/2017 7:58 AM MARKET NEWS REPORTER Respiratory Rate 18 03/07/2017 7:58 AM MARKET NEWS REPORTER Oxygen Saturation 97% 03/06/2017 11:30 AM MARKET NEWS REPORTER Inhaled Oxygen Concentration - - Weight - - Height - - Body Mass Index - - documented in this encounter Discharge Summaries Lakisha Cantu DO - 03/07/2017 9:50 AM CST Images from the original note were not included. [facility] Post- Discharge Summary Azul Tellez Age: [age] year old Date of : 1980 Date of Admission: 03/05/2017 Date of Discharge:: 03/07/2017 Admitting Physician: Keri Elias MD Discharge Physician: Lakisha Cantu DO Home clinic: [facility] Admission Diagnoses: Maternity*VINCENT 03/08/2017/Labor Encounter for [...] time ??? fluticasone (FLONASE) 50 MCG/ACT spray [place] 1-2 sprays into both nostrils daily 16 [...] Unknown time ??? blood glucose monitoring (ACCU-CHEK ROSYE PLUS) meter device kit Use to test [...] Frequent UTI fluticasone (FLONASE) 50 MCG/ACT spray [place] 1-2 sprays into both nostrils daily Qty: [...] Disposition: Discharged to home Lakisha Cantu DO ET NEWS REPORTER documented in this encounter Discharge Instructions Discharge [...] hands. Keep your nails clean and short. ET NEWS REPORTER documented in this encounter Medications at Time [...] Abnormal maternal glucose tolerance, antepartum fluticasone (FLONASE) [place] 1-2 sprays into 16 g 3 07/05/2017 [...] has great leg movement control. DO [facility] ET NEWS REPORTER Keri Elias MD - 03/05/2017 6:15 PM [...] delivery, considering NO gas. Gin Deutsch DO [facility] Attestation: This patient has been seen and evaluated by me, Keri Elias on 03/05/2017. I saw and discussed the case with the primary resident the care team. I agree with the findings and plan in this note. I have reviewed today's vital signs, medications, laboratory results. Keri Elias MD [facility] ET NEWS REPORTER documented in this encounter Miscellaneous Notes L&D Delivery Note - Keri Elias MD - 03/07/2017 1:44 PM MARKET NEWS REPORTER OB Vaginal Delivery Note Azul Tellez Age: [age] year old Date of : 1980 GA: 39w5d GP: Labor Complications: None EBL: mL QBL: 105 mL Delivery Type: Vaginal, Spontaneous Delivery ROM to Delivery Time: 5h 02m [place] Weight: 3.65 kg (8 lb 0.8 oz) [...] Normal 1:1 continuous labor support provided by?: electrophonic engineer/Placenta Date and Time Delivery Date: 03/06/17 Delivery Time: 12:52 AM Placenta Date/Time: 03/06/2017 12:58 AM Oxytocin given at the time of delivery: after delivery of baby Vaginal Counts Initial count performed by 2 team members: Two Team Members Jada Gonzalez RN [place] Suture [place] Sponges Instruments Initial counts 2 5 Added [...] 2 Total: 8 9 Apgars assigned by: Pedor HAINES RN Cord Vessels: 3 Vessels Complications: None Cord Blood Disposition: Lab Gases Sent?: No Resuscitation Methods: None Care at Delivery: with spontaneous cry to mother's abdomen. Dried and stimulated withwarm blankets. Output in Delivery Room: Stool Measurements Weight: 8 lb 0.8 oz Length: 1' 8.5 Head circumference: 34.9 cm Skin to Skin and Feeding Plan Skin to skin initiation date/time: 03/06/17 0052 Skin to skin with: Mother Skin to skin end date/time: initiated date/time: 03/06/2017 0140 How do you plan to feed your baby: Labor Events and Shoulder Dystocia Tracing Prior to Delivery: Category 1 Shoulder dystocia present?: Neg Delivery (Maternal) (Provider to Complete) ([id number]) Episiotomy: None Perineal lacerations: 1st Repaired?: No Labial laceration: right Repaired?: No Vaginal laceration?: No Cervical laceration?: No Mother's Information Mother: Azul Mcclellan #[id number] Start of Mother's Information IO Blood Loss 03/05/17 1730 - 03/07/17 0052 Mom's I/O Activity End of Mother's Information Mother: Azul Mcclellan #[id number] Delivery - Provider to Complete ([id number]) Delivering clinician: KERI ELIAS Attempted Delivery Types [...] Vertex Position: Middle Occiput Anterior DO [facility] Attestation: This patient has been seen and evaluated by me, Keri Elias on 03/06/17. I saw and discussed the case with the primary resident the care team. I agree with the findings and plan in this note. I have reviewed today's vital signs, medications, laboratory results. I was present for the entire delivery. [facility] ET NEWS REPORTER Plan of Care - Anuja Martins RN [...] wereanswered. Discharge to home today with baby. ET NEWS REPORTER Plan of Care - Collin Oh RN [...] Looking forward to discharge to home today. ET NEWS REPORTER Plan of Care - Amelia Martinez RN - 03/07/2017 7:50 AM CST Referral made to [facility] for early dc. ET NEWS REPORTER Plan of Care - Anna Morgan RN [...] person in room. Continue plan of care. ET NEWS REPORTER Plan of Care - Deborah Sparks RN [...] present. Plan: continue with plan of care. ET NEWS REPORTER Note - Jose Cummings RN - 03/06/2017 [...] will continue to call for help prn. ET NEWS REPORTER Plan of Care - Apoorva Gold RN [...] new family booklet, safe sleep, feeding cues, [place] and pain management. See flow record. Response: Positive attachment behaviors observed with infant. Support persons Yohan present. Plan: continue plan of care. ET NEWS REPORTER Provider Notification - Apoorva Gold RN - 03/06/2017 6:36 AM CST 03/06/17 0636 Provider Notification Provider Name/Title MitchellChuyBrittnee Method of Notification Electronic Page Request Evaluate-Remote Notification Reason Medication Request (Tums) Patient is requesting Tums for heartburn. Please order as soon as you can, thanks! ET NEWS REPORTER Plan of Care - Apoorva Gold RN - 03/06/2017 6:09 AM CST Patient arrived to [facility] unit via wheelchair at 0330,with belongings, accompanied by spouse/ significant other, with in arms. Received report from Rebecca Regalado at 0300 over the phone and checked bands. Unit and room orientation completd. Call light given and within arms reach; no concerns present atthis time. Continue with plan of care. ET NEWS REPORTER Plan of Care - Mary Lindsey RN - 03/06/2017 3:49 AM CST Data: Azul Tellez transferred to [facility] via wheelchair at 0330. Baby transferred via parent'sarms. Action: Receiving unit notified of transfer: Yes. Patient and family notified of room change. Reportgiven to KENNY Guerin at 0300. Belongings sent to receiving unit. Accompanied by Registered Nurse. Oriented patient to surroundings. Call light within reach. ID bands double-checked with receiving RN. Response: Patient tolerated transfer and is stable. ET NEWS REPORTER Provider Notification - Mary Lindsey RN - 03/06/2017 2:23 AM CST 03/05/17 6050 Provider Notification Provider Name/Title MDA Method of Notification At Bedside Request Evaluate in Person Notification Reason Other (Comment) (replacing epidural) Pt. Uncomfortable, feels epidural isn't working. MDA in to assess. Epidural fell out. Second one placed. Continue to monitor. ET NEWS REPORTER Plan of Care - Mary Lindsey RN [...] No repairs. Pitocinper protocol. Continue pp cares. ET NEWS REPORTER Plan of Care - Yasmine Phillips RN [...] in for pt to help with relaxation. ET NEWS REPORTER Provider Notification - Yasmine Phillips RN - 03/05/2017 10:44 PM CST 03/05/17 2225 Provider Notification Provider Name/Title MDA Method of Notification Phone Request Evaluate - Remote Notification Reason Status Update Discussed pt status post-epidural placement. Discussed how tape was coming off and placed tape on tokeep site stable. MDA ok with intervention. No further orders. ET NEWS REPORTER Provider Notification - Yasmine Phillips RN - 03/05/2017 10:43 PM CST 03/05/17 2239 Provider Notification Provider Name/Title MDA Method of Notification Phone Request Evaluate - Remote Notification Reason Patient Request Discussed pt s/s with provider. No concerns at this time. Will continue to support and update provider as needed. ET NEWS REPORTER Provider Notification - Yasmine Phillips RN - 03/05/2017 10:02 PM CST 03/05/17 2200 Provider Notification Provider Name/Title FP Resident Method of Notification In Department Request Evaluate in Person Notification Reason Status Update Strip reviewed intra-department. No further orders or concerns. ET NEWS REPORTER Provider Notification - Yasmine Phillips RN - 03/05/2017 9:54 PM CST 03/05/17 2115 Provider Notification Provider Name/Title FP Resident Method of Notification At Bedside Request Evaluate in Person Notification Reason Status Update Strip reviewed at bedside with provider as a LD was seen. No further orders. Variability still moderate. ET NEWS REPORTER Plan of Care - Lisa Peralta RN [...] Outcome: No Change Data: [facility] at [facility]. Reason for maternal/ assessment [...] ambulatory, oriented to room and call light. ET NEWS REPORTER documented in this encounter Plan of Treatment Not on filedocumented as of this encounter Procedures Procedure Name Priority Date/Time Associated Diagnosis Comme nts HEMOGLOBIN Routine 03/07/2017 7:07 AM Results f or this MARKET NEWS REPORTER procedure are i n the results section . PLATELET COUNT STAT 03/05/2017 6:28 PM Results for this MARKET NEWS REPORTER procedure are i n the results section . HEMOGLOBIN STAT 03/05/2017 6:28 PM Results f or this MARKET NEWS REPORTER procedure are i n the results section . ABO AND RH STAT 03/05/2017 6:28 PM Results f or this MARKET NEWS REPORTER procedure are i n the results section . documented in this encounter Results (ABNORMAL) Hemoglobin (03/07/2017 7:07 AM MARKET NEWS REPORTER) P athologist Signature Hemoglobin 9.0 (L) 11.7 - 15.7 03/07/2017 [facility] g/dL 7:24 AM MARKET NEWS REPORTER [facility] Specimen Anatomical Collection Method Collection Time Receive d Time (Source) Location / / Volume Laterality Blood specimen 03/07/2017 7:07 AM 018 7:11 (specimen) MARKET NEWS REPORTER AM MARKET NEWS REPORTER Keri Elias MD LAB - BLOOD ORDERABLES Performing Organization Address City/State/ZIP Code Phon e Number [address] [address] [facility] Platelet count (03/05/2017 6:28 PM MARKET NEWS REPORTER) P athologist Signature Platelet Count 281 150 - 450 03/05/2017 [facility] 10e9/L 6:35 PM MARKET NEWS REPORTER [facility] Specimen Anatomical Collection Method Collection Time Receive d Time (Source) Location / / Volume Laterality Blood specimen 03/05/2017 6:28 PM 018 6:30 (specimen) MARKET NEWS REPORTER PM MARKET NEWS REPORTER Keri Elias MD LAB - BLOOD ORDERABLES Performing Organization Address City/State/ZIP Code Phon e Number [address] [address] [facility] (ABNORMAL) Hemoglobin (03/05/2017 6:28 PM MARKET NEWS REPORTER) P athologist Signature Hemoglobin 10.2 (L) 11.7 - 03/05/2017 [facility] 15.7 g/dL 6:35 PM MARKET NEWS REPORTER [facility] Specimen Anatomical Collection Method Collection Time Receive d Time (Source) Location / / Volume Laterality Blood specimen 03/05/2017 6:28 PM 018 6:30 (specimen) MARKET NEWS REPORTER PM MARKET NEWS REPORTER Keri Elias MD LAB - BLOOD ORDERABLES Performing Organization Address City/State/ZIP Code Phon e Number [address] [address] [facility] ABO and Rh (03/05/2017 6:28 PM MARKET NEWS REPORTER) Patholo gist Method Time Signature ABO O 03/05/2017 [facility] 6:58 PM MARKET NEWS REPORTER [facility] RH(D) Pos [facility] Specimen 03/08/2017 03/05/2017 [facility] Expires 6:39 PM MARKET NEWS REPORTER [facility] Specimen Anatomical Collection Method Collection Time Receive d Time (Source) Location / / Volume Laterality Blood specimen 03/05/2017 6:28 PM 018 6:30 (specimen) MARKET NEWS REPORTER PM MARKET NEWS REPORTER Keri Elias MD LAB - BLOOD BANK TEST ORDER Performing Organization Address City/State/ZIP Code Phon e Number [facility] [address] [place] [address] [facility] documented in this encounter Visit Diagnoses Diagnosis [...] (TYLENOL) tablet 650 Given 03/07/2017 7:21 AM MARKET NEWS REPORTER 650 mg mg 650 mg, Oral, EVERY 4 HOURS PRN, mild pain, fever, greater than or equal to 38?? C /100.4?? F (oral) or 38.5?? C/ 101.4?? F (core)., Starting on Mon03/06/17 at 0129, Maximum acetaminophen dose from all sources = 75 mg/kg/day not to exceed 4 grams/day. Given 03/06/2017 11:45 PM MARKET NEWS REPORTER 650 mg Given 03/06/2017 7:28 PM MARKET NEWS REPORTER 650 mg calcium carbonate (TUMS) chewable tablet 500 Given 10:10 PM MARKET NEWS REPORTER 500 mg mg 500 mg, Oral, DAILY PRN, heartburn, Starting on Mon03/05/17 at 2147 calcium carbonate (TUMS) chewable tablet 500 mg 500 mg, Oral, DAILY PRN, heartburn, Starting on Mon at 0638 diphenhydrAMINE (BENADRYL) injection 25 mg Given 03/06/2017 4:10 AM MARKET NEWS REPORTER 25 mg 25 mg, Intravenous, EVERY 6 HOURS PRN, itching, sleep, anxiety, Administer over 1-2 Minutes, Starting on Mon03/06/17 at 0336, For ordered doses up to 50 mg, give IV Push undiluted. Give each 25mg over a minimum of 1 minute. Extend in non-emergency fentaNYL (PF) (SUBLIMAZE) injection 50-100 Given 03/05/2017 7:33 PM MARKET NEWS REPORTER 50 mcg mcg 50-100 mcg, Intravenous, EVERY [...] tablet 800 mg Given 03/06/2017 1:27 AM MARKET NEWS REPORTER 800 mg 800 mg, Oral, ONCE PRN, moderate pain (4-6), mild-moderate pain, Starting on 03/05/17 at 1810, For 1 dose, Available for administration after delivery. May give with acetaminophen. ibuprofen (ADVIL/MOTRIN) tablet 800 mg Given 03/07/2017 7:21 AM MARKET NEWS REPORTER 800 mg 800 mg, Oral, EVERY 6 HOURS PRN, other, cramping, Starting on 03/06/17 at 0129, Max dose: 3200 mg/day Given 03/06/2017 8:42 PM MARKET NEWS REPORTER 800 mg Given 03/06/2017 2:27 PM MARKET NEWS REPORTER 800 mg lactated ringers BOLUS 1,000 mL New Bag 03/05/2017 8:37 PM MARKET NEWS REPORTER 1,000 mLs Intravenous, 1,000 mL, ONCE PRN, IF patient to have epidural or intrathecal narcotics and NOT pre-eclamptic, Starting on Mon03/05/17 at 1810, For 1 dose, IV bolus 15-30 min prior to epidural, then IV fluids per labor orders lactated ringers BOLUS 500 mL New Bag 03/05/2017 6:17 PM MARKET NEWS REPORTER 500 mLs Intravenous, 500 mL, ONCE PRN, per policy for intrauterine resuscitation or uterine tachysystole, Starting on Mon03/05/17 at 1810, For 1 dose lactated ringers infusion New Bag 03/05/2017 11:53 PM MARKET NEWS REPORTER 125 mL/hr at 125 mL/hr, Intravenous, CONTINUOUS, Starting on Mon03/05/17 at 1830, Until Mon03/06/17 at 0129 Rate/Dose Verify 03/05/2017 8:27 PM MARKET NEWS REPORTER 125 mL/hr New 03/05/2017 7:20 PM MARKET NEWS REPORTER 125 mL/hr naphazoline-pheniramine (OPCON-A/VISINE A/NAPHCON A) ophthalmic solution 1 drop 1 drop, Ophthalmic, 4 TIMES DAILY PRN, d ry eyes, Starting on Mon03/06/17 at 0358 nitrous oxide/oxygen 50/50 blend Given 03/05/2017 6:45 PM MARKET NEWS REPORTER Inhalation, CONTINUOUS PRN, episodic analgesia, Starting on [...] units in New Bag 03/06/2017 12:54 AM MARKET NEWS REPORTER 340 mL/hr 340 mL/hr 500 mL 0.9% [...] mL/hr units in 500 mL 0.9% NaCl MARKET NEWS REPORTER infusion 100 mL/hr, Intravenous, CONTINUOUS, Starting on [...] for loose stools. Given 03/06/2017 7:41 AM MARKET NEWS REPORTER 1 tablet senna-docusate (SENOKOT-S;PERICOLACE) 8. 6-50 MG per tablet 2 tablet 2 tablet, Oral, 2 TIMES DAILY PRN, const ipation, Starting on Mon03/06/17 at 0129, Hold for loose stools. documented in this encounter Active and Recently Administered Medications Times are shown in MARKET NEWS REPORTER. Scheduled Medication Order 03/05/2017 03/06/2017 03/07/2017 fentaNYL (SUBLIMAZE) 2 mcg/mL, bupivacai ne (MARCAINE) 0.125% in NS premix for PCEA (CANCELED) 2118 (New Bag by Other Clinician - Provider: Yasmine ulloa, KENNY) 104 (Stopped - Provider: Mary Lindsey RN) EPIDURAL, BENCH ASSEMBLER, First dose on Mon03/05/17 at 2045, Absolutely [...] KENNY)2026 (Rate/Dose Verify - Provider: Yasmine Phillips, RN)2353 (New Bag - Provider: Mary Lindsey, RN) 0054 (Stopped - Provider: Mary Lindsey RN) at 125 mL/hr, Intravenous, CONTINUOUS, S tarting 03/05/17 at 1830, Until 03/06/17 at 0129 oxytocin (PITOCIN) 30 units in 500 mL 0.9% NaCl infusion 0125 (Rate/Dose Change - Provider: Mary Lindsey RN)0445 (Stopped - Provider: Apoorva Gold RN) 100 [...] RN) 50-100 mcg, Intravenous, EVERY 1 HOUR GA N, Starting 03/05/17 at 1848, other, desired [...] Sparks, RN)1427 (Given - Provider: Deborah Sparks, KENNY)2041 (Given - Provider: Anna Morgan RN) 0721 [...] at 0358 nitrous oxide/oxygen 50/50 blend (CANCELED) 184 (Give n - Provider: Lisa Peralta RN)193 [...] to treat or prevent uterine atony, Starting Mon03/05/17 at 1810, For 1 dose, Administer 340 [...] 2 TIMES DAILY PRN, const ipation, Starting Mon03/06/17 at 0129, If no bowel movement in 24 hours, increase to 2 tablets PO. Hold for loose stools. senna-docusate (SENOKOT-S;PERICOLACE) 8. 6-50 MG per tablet 2 tablet(Linked Group 1) 0741 (See Alternative - Prov ider: Deborah Sparks RN)1927 (See Alternative - Provider: Anna Morgan RN) 2 tablet, Oral, 2 TIMES DAILY PRN, const ipation, Starting Mon03/06/17 at 0129, Hold for loose stools. sodium phosphate (FLEET ENEMA) 1 enema 1 enema, Rectal, DAILY PRN, constipation , Starting Mon03/08/17 at 0000, Use if bisacodyl not effective Linked Groups Order Group 1: senna-docusate (SENOKOT-S;PERICOLACE) 8.6-50 MG per tablet 1 tabletJump to med 1 tablet, Oral, 2 TIMES DAILY PRN, const ipation, Starting Mon18 at 0129
If no bowel movement in 24 hours, increase to 2 tablets PO. Hold for loose stools.
Or senna-docusate (SENOKOT-S;PERICOLACE) 8.6-50 MG per tablet 2 tabletJump to med 2 tablet, Oral, 2 TIMES DAILY PRN, const ipation, Starting 03/06/17 at 0129
Hold for loose stools.
documented in this encounter Care Teams Collection Clerk Relationship Specialty Start Date End Date Keri Elias PCP - General Family Practice 03/12/15 9 MD Ira Glez David Wayne, MD Orthopedics 07/09/[address] [place] [id number] Astrid Rios PA-C Physician Lining Caser Physician Lining Caser - 07/09/14 Surgical documented as of this encounter
--- OUTSIDE RECORDS SUMMARY | 2022-01-07 13:15 | XMS_ITS | Encounter Summary ---
:1980 Author Organization [place] Address [facility] [place] [address] Care Team Providers Name Role Phone Bebeto Roth MD Unavailable Astrid Rios PA-C Unavailable Keri Elias MD Primary Care Provider Unavailable Reason for Visit Reason Comments UTI Encounter Details Date Type Department Care Team Description 07/05/2017 Office Visit [facility] Lakisha Cantu, Bladder in fection (Primary Dx); Medicine Clinic DO [address] [facility] [address] [address] [place], [place] [phone] [id number] Social History Tobacco Use Types Packs/Day Years [...] (UA) ([facility]) Result Value Ref Range Specific [place] Urine 1.020 1.005 - 1.030 pH Urine [...] urine culture. - Urinalysis, Micro If (UA) ([facility]) - cephALEXin (KEFLEX) 500 MG capsule; Take 1 capsule (500 mg) by mouth 2 times daily - Urine Culture Aerobic Bacterial Environmental allergies - fluticasone (FLONASE) 50 MCG/ACT spray; [place] 1-2 sprays into both nostrils daily Dermatitis [...] Component Value Ref Test Analysis Performed At [facility] gist Range Method Time Signature Specimen Midstream Urine INFECTIOUS Description DISEASE DIAGNOSTIC LABORATORY Special Specimen 07/05/2017 [facility] received in 4:48 PM CDT [facility] preservative [facility] Culture Micro No growth 07/06/2017 INFECTIOUS 10:09 PM DISEASE CDT DIAGNOSTIC LABORATORY Specimen (Source) Anatomical Collection Method Collection Time Re ceived Time Location / / Volume Laterality Examination of 07/05/2017 12:58 8 1:02 midstream urine PM CDT PM CDT specimen (procedure) Lakisha Cantu DO LAB - MICRO GENERAL ORDERABL ES Performing Organization Address City/State/ZIP Code Phon e Number INFECTIOUS DISEASES [address] [place] [address] DIAGNOSTIC LABORATORY, [facility] INFECTIOUS DISEASE [address] [place] [address], [facility] DIAGNOSTIC LABORATORY [address] [address], [facility] (ABNORMAL) Urinalysis, Micro If (UA) ([facility]) (07/05/2017 9:39 AM CDT) [facility] gist Method Time Signature Specific [place] 1.020 1.005 - [place] Urine 1.030 FAMILY [...] Organization Address City/State/ZIP Code Phon e Number [facility] [address] [place] [phone] [facility] documented in this encounter Visit Diagnoses Diagnosis Bladder infection - Primary Cystitis, unspecified Environmental allergies Allergic rhinitis, cause unspecified Dermatitis Contact dermatitis and other eczema, due to unspecified cause documented in this encounter Care Teams Employment Law Specialist Relationship Specialty Start Date End Date Keri Elias PCP - General Family Practice 03/12/15 9 MD Ira Glez David Wayne, MD Orthopedics 07/09/14 [facility] [place] [address] Astrid Rios PA-C Physician Mixer Diamond Powder Physician Mixer Diamond Powder - 07/09/14 Surgical documented as of this encounter
--- OUTSIDE RECORDS SUMMARY | 2022-01-07 13:15 | XMS_ITS | Encounter Summary ---
:1980 Author Organization [place] Address [address] [facility] [place] [address] Care Team Providers Name Role Phone Bebeto [...] initial prescr iption of contraceptive pills [address], [address] [place] [address] Social History Tobacco Use Types Packs/Day Years Used Date Smoking Tobacco: Never Smokeless Tobacco: Never Alcohol Use Standard Drinks/Week Comments No 0 (1 standard drink = 0.6 oz pure alcoho l) Sex Assigned at Date Recorded Not on file documented as of this encounter Last Filed Vital Signs Vital Sign Reading Time Taken Comments Blood Pressure 112/83 04/12/2017 11:05 AM PAPERHANGER APPRENTICE Pulse 94 04/12/2017 11:05 AM PAPERHANGER APPRENTICE Temperature - - Respiratory Rate 16 04/12/2017 11:05 AM PAPERHANGER APPRENTICE Oxygen Saturation 98% 04/12/2017 11:05 AM PAPERHANGER APPRENTICE Inhaled Oxygen Concentration - - Weight 69.8 kg (153 lb 12.8 oz) 04/12/2017 11:05 AM PAPERHANGER APPRENTICE Height - - Body Mass Index 27.03 03/30/2017 12:31 PM PAPERHANGER APPRENTICE documented in this encounter Progress Notes Keri [...] spent in counseling about symptoms and plan. RHANGER APPRENTICE documented in this encounter Plan of Treatment Not on filedocumented as of this encounter Procedures Procedure Name Priority Date/Time Associated Diagnosis Comme nts HEMOGLOBIN (HGB) Routine 04/12/2017 11:46 Iron deficiency Resu lts for this (LABDAQ) AM PAPERHANGER APPRENTICE anemia, unspecified procedur e are in iron deficiency the results anemia type section. documented in this encounter Results Hemoglobin (HGB) (LabDAQ) (04/12/2017 11:46 AM PAPERHANGER APPRENTICE) P athologist Signature Hemoglobin 11.8 11.7 - 15.7 [facility] g/dL MEDICINE LABDAQ Specimen Anatomical Collection Method Collection Time Receive d Time (Source) Location / / Volume Laterality Blood specimen CAPILLARY BLOOD / 04/12/2017 11:46 03/17 (specimen) Unknown AM PAPERHANGER APPRENTICE 11:48 AM PAPERHANGER APPRENTICE Keri Elias MD LAB - LABDAQ Performing Organization Address City/State/ZIP Code Phon e Number [facility] [address] [place], [place] [address] LABDAQ documented in this encounter Visit Diagnoses Diagnosis Iron deficiency anemia, unspecified iron deficiency anemia type - Primary Encounter for initial prescription of co ntraceptive pills General counseling for prescription of o ral contraceptives documented in this encounter Care Teams Senior Engineering Team Leader Relationship Specialty Start Date End Date Keri Elias PCP - General Family Practice 03/12/15 9 MD Ira Glez David Wayne, MD Orthopedics 07/09/14 [facility] [facility] [address] [place] [address] Astrid Rios PA-C Physician Scheduling Specialist Physician Scheduling Specialist - 07/09/14 Surgical documented as of this encounter
--- OUTSIDE RECORDS SUMMARY | 2022-01-07 13:15 | XMS_ITS | Encounter Summary ---
:1980 Author Organization [place] Address [facility]0 [facility] [place] [address] Care Team Providers Name Role Phone Bebeto Roth MD Unavailable Astrid Rios PA-C Unavailable Keri Elias MD Primary Care Provider Unavailable Reason for Visit Diagnostic Imaging XR - Closed Specialty Diagnoses / Procedures Referred By Contact Refer red To Contact Diagnoses Pain Bebeto Roth MD Procedures XR Leg Length Evaluation [address] [facility] [address] [place], [place] [address] Referral ID Status Reason Start Date Expiration Date Visits Requ ested Visits Authorized [id number] Closed 03/30/2017 03/30/2018 1 1 Encounter Details Date Type Department Care Team Description 03/30/2017 Radiant Appointment [facility] Chan Roth Pain Farhanaay MD Devan 9 [facility] [address] [place] [address] [phone] Social History Tobacco Use Types Packs/Day Years [...] 12:42 PM Pain Results for this EVALUATION SENIOR DIRECTOR OF GLOBAL COMMERCIAL TECHNOLOGY SOLUTIONS procedure are i n the results section. documented in this encounter Results XR Leg Length Evaluation (03/30/2017 12:42 PM SENIOR DIRECTOR OF GLOBAL COMMERCIAL TECHNOLOGY SOLUTIONS) Anatomical Region Laterality Modality Neck Computed Radiography Specimen (Source) Anatomical Location Collection Method / Collectio n Time Received Time / Laterality Volume Impressions 03/30/2017 1:17 PM SENIOR DIRECTOR OF GLOBAL COMMERCIAL TECHNOLOGY SOLUTIONS Impression: 1. Mild right convexed curvature of the main thoracic spine. 2. No ??global sagittal imbalance. 3. Weight bearing axis as detailed above . 4. Stable posterior instrumented fusion from T10 to L3 ALISHA POPE MD Narrative 03/30/2017 1:17 PM SENIOR DIRECTOR OF GLOBAL COMMERCIAL TECHNOLOGY SOLUTIONS EXAMINATION: XR SPINE COMPLETE 2 VW, XR [...] No substantial global coronal imbalance. Sagittal Vertical [place] (A vertical line drawn from the center [...] No substantial global coronal imbalance. Sagittal Vertical [place] (A vertical line drawn from the center [...] pain documented in this encounter Care Teams Project Management Professor Relationship Specialty Start Date End Date Keri Elias PCP - General Family Practice 03/12/15 9 MD Ira Glez David Wayne, MD Orthopedics 07/09/14 [facility] [place], [place] [address] [place] [address] Astrid Rios PA-C Physician Tooling Engineering Tech Physician Tooling Engineering Tech - 07/09/14 Surgical documented as of this encounter
--- OUTSIDE RECORDS SUMMARY | 2022-01-07 13:15 | XMS_ITS | Encounter Summary ---
:1980 Author Organization [place] Address [address] [facility] [place] [address] Care Team Providers Name Role Phone Bebeto Roth MD Unavailable Astrid Rios PA-C Unavailable Keri Elias MD Primary Care Provider Unavailable Reason for Visit Reason Comments Care BALA. NO concerns Encounter Details Date Type Department Care Team Description 02/28/2017 Office Visit Narda [facility]od Keri Elias of [facility] MD [place] risk , [address], [address] mauricio ([address]) [place], [place] [address] Social History Tobacco Use Types Packs/Day Years Used Date Smoking Tobacco: Never Smokeless Tobacco: Never Alcohol Use Standard Drinks/Week Comments No 0 (1 standard drink = 0.6 oz pure alcoho l) Sex Assigned at Date Recorded Not on file documented as of this encounter Last Filed Vital Signs Vital Sign Reading Time Taken Comments Blood Pressure 111/77 02/28/2017 7:54 AM TILE PICKER Pulse 96 02/28/2017 7:54 AM TILE PICKER Temperature 36.4 ??C (97.5 ??F) 02/28/2017 7:54 AM TILE PICKER Respiratory Rate 16 02/28/2017 7:54 AM TILE PICKER Oxygen Saturation 100% 02/28/2017 7:54 AM TILE PICKER Inhaled Oxygen Concentration - - Weight 79.9 kg (176 lb 3.2 oz) 02/28/2017 7:54 AM TILE PICKER Height - - Body Mass Index 31.21 [...] with the final plan. Keri Elias MD PICKER documented in this encounter Plan of Treatment Not on filedocumented as of this encounter Visit Diagnoses Diagnosis Supervision of high risk , ante - Primary documented in this encounter Care Teams Portfolio Administrator Relationship Specialty Start Date End Date Keri Elias PCP - General Family Practice 03/12/15 9 MD Ira Glez David Wayne, MD Orthopedics 07/09/[address] [place] [address] Astrid Rios PA-C Physician Billet Grinder Physician Billet Grinder - 07/09/14 Surgical documented as of this encounter
--- OUTSIDE RECORDS SUMMARY | 2022-01-07 13:15 | XMS_ITS | Encounter Summary ---
:1980 Author Organization [place] Address [facility]0 [facility] [place] [address] Care Team Providers Name Role Phone Bebeto Roth MD Unavailable Astrid Rios PA-C Unavailable Keri Elias MD Primary Care Provider Unavailable Reason for Visit Diagnostic Imaging XR - Closed Specialty Diagnoses / Procedures Referred By Contact Refer red To Contact Diagnoses S/P spinal fusion Bebeto Roth MD Procedures XR Spine Complete 2 Views [address] [place], [place] [address] Referral ID Status Reason Start Date Expiration Date Visits Requ ested Visits Authorized [id number] Closed 03/27/2017 03/27/2018 1 1 Encounter Details Date Type Department Care Team Description 03/30/2017 Radiant Appointment [facility] Imaging Bebeto Roth S/P spinal fusion Center Farhana MD Devan 9 [facility] [address] [place] [address] [phone] Social History Tobacco Use Types Packs/Day Years [...] n Results for this SCOLIOSIS 2 VIEWS CONTROL SYSTEMS ENGINEER procedure are in the results section. documented in this encounter Results XR Spine Complete 2 Views (03/30/2017 12:40 PM CONTROL SYSTEMS ENGINEER) Anatomical Region Laterality Modality Spine Computed Radiography Specimen (Source) Anatomical Location Collection Method / Collectio n Time Received Time / Laterality Volume Impressions 03/30/2017 1:17 PM CONTROL SYSTEMS ENGINEER Impression: 1. Mild right convexed curvature of the main thoracic spine. 2. No ??global sagittal imbalance. 3. Weight bearing axis as detailed above . 4. Stable posterior instrumented fusion from T10 to L3 ALISHA POPE MD Narrative 03/30/2017 1:17 PM CONTROL SYSTEMS ENGINEER EXAMINATION: XR SPINE COMPLETE 2 VW, XR [...] No substantial global coronal imbalance. Sagittal Vertical [place] (A vertical line drawn from the center [...] No substantial global coronal imbalance. Sagittal Vertical [place] (A vertical line drawn from the center [...] status documented in this encounter Care Teams Airport Guide Relationship Specialty Start Date End Date Keri Elias PCP - General Family Practice 03/12/15 9 MD Ira Glez David Wayne, MD Orthopedics 07/09/[address] [place] [address] Astrid Rios PA-C Physician Supervising Airplane Pilot Physician Supervising Airplane Pilot - 07/09/14 Surgical documented as of this encounter
--- OUTSIDE RECORDS SUMMARY | 2022-01-07 13:15 | XMS_ITS | Encounter Summary ---
:1980 Author Organization [place] Address [address] [facility] [place] [address] Care Team Providers Name Role Phone Bebeto Roth MD Unavailable Astrid Rios PA-C Unavailable Keri Elias MD Primary Care Provider Unavailable Francisco Metz MD Primary Care Provider [phone] Francisco Metz MD Unavailable [phone] Kenton Katz MD Unavailable Unavailable Karen Veliz DO Primary Care Provider Kenton Katz MD Unavailable Unavailable Karen Veliz DO Unavailable Reason for Visit Reason Onset Date Comments No Show 03/27/2017 RTN No Show #3 Encounter Details Date Type Department Care Team Description 03/27/2017 Telephone [facility] Keri Elias No Show (RTN No Show Medicine Clinic MD [place] #3) [address], [address] [place], [place] [address] Social History Tobacco Use Types Packs/Day Years [...] the virtual schedule to meet with you. PARTS CUTTER documented in this encounter Plan of Treatment Not on filedocumented as of this encounter Visit Diagnoses Not on filedocumented in this encounter Care Teams Back Hanger Relationship Specialty Start Date End Date Keri Elias PCP - General Family Practice 03/12/15 9 MD Isaías Glez Mitchell PCP - General Family Practice 11/14/18 04/02/20 MD Stevie Karen Veliz, PCP - General Family Medicine 04/03/202019 [place] [address] Bebeto Roth MD Orthopedics 07/09/14 [facility] [place] [address] Astrid Rios PA-C Physician Mandarin Chinese Teacher Physician Mandarin Chinese Teacher - 07/09/14 Surgical Francisco Metz Assigned PCP 07/04/19 02/01/20 MD Stevie [place] [id number] [place] [address] [place] [address] Kenton Katz Assigned PCP 02/02/20 08/27/20 MD Feliberto NO INFO AVAILABLE Kenton Katz Assigned Endocrinology 08/28/20 07/23/21 MD Feliberto Provider NO INFO AVAILABLE Karen Veliz, Assigned PCP 08/28/202019 [place] [address] documented as of this encounter
--- OUTSIDE RECORDS SUMMARY | 2022-01-07 13:15 | XMS_ITS | Encounter Summary ---
:1980 Author Organization [place] Address [address] [facility] [place] [address] Care Team Providers Name Role Phone Bebeto Roth MD Unavailable Astrid Rios PA-C Unavailable Keri Elias MD Primary Care Provider Unavailable Reason for Visit Reason Onset Date Comments Schedule Surgery 07/27/2017 Dr. Ira arizmendi Encounter Details Date Type Department Care Team Description 07/27/2017 Telephone [facility] Orthopaedic Bebeto Roth e Surgery (MD Ira Gardner) [address] [place] [address] [phone] Social History Tobacco Use Types Packs/Day Years [...] on filedocumented in this encounter Care Teams Preschool Assistant Principal Relationship Specialty Start Date End Date Keri Elias PCP - General Family Practice 03/12/15 9 MD Ira Glez David Wayne, MD Orthopedics 07/09/[address] [place] [address] Astrid Rios PA-C Physician Cigarette Inspector Physician Cigarette Inspector - 07/09/14 Surgical documented as of this encounter
--- OUTSIDE RECORDS SUMMARY | 2022-01-07 13:15 | XMS_ITS | Encounter Summary ---
:1980 Author Organization [place] Address [address] [facility] [place] [address] Care Team Providers Name Role Phone Bebeto Roth MD Unavailable Astrid Rios PA-C Unavailable Keri Elias MD Primary Care Provider Unavailable Reason for Visit Reason Onset Date Comments Call To Schedule Appointment 03/07/2017 PDP-MOM Encounter Details Date Type Department Care Team Description 03/07/2017 Telephone [facility] Keri Elias Call To Schedule Medicine Clinic MD [place] Appointment (PDP-MOM) [facility] [address] [place] [address], [address] [place], [place] [address] Social History Tobacco Use Types Packs/Day Years Used Date Smoking Tobacco: Never Smokeless Tobacco: Never Alcohol Use Standard Drinks/Week Comments No 0 (1 standard drink = 0.6 oz pure alcoho l) Sex Assigned at Date Recorded Not on file documented as of this encounter Miscellaneous Notes Telephone Encounter - Tala Velasco CMA - 03/08/2017 11:27 AM CST Patient scheduled 03/23/17 and 04/12/17. ER OPERATOR Telephone Encounter - Clarita Gunderson RN - 03/07/2017 3:47 PM CST Please call patient to schedule 2 week and 6 week visits: Date of Delivery: 03/06/17 Date of Discharge: 03/07/17 Please document all calls. Close encounter after appointment is scheduled or after last attempt has been made Clarita Gunderson, RN ER OPERATOR documented in this encounter Plan of Treatment Not on filedocumented as of this encounter Visit Diagnoses Not on filedocumented in this encounter Care Teams Corrosion Control Fitter Relationship Specialty Start Date End Date Keri Elias PCP - General Family Practice 03/12/15 9 MD Ira Glez David Wayne, MD Orthopedics 07/09/14 [facility] [facility] [address] [place] [address] Astrid Rios PA-C Physician Cradle Slide Maker Physician Cradle Slide Maker - 07/09/14 Surgical documented as of this encounter
--- OUTSIDE RECORDS SUMMARY | 2022-01-07 13:16 | XMS_ITS | Encounter Summary ---
:1980 Author Organization [place] Address [address] [facility] [place] [address] Care Team Providers Name Role Phone Bebeto Roth MD Unavailable Astrid Rios PA-C Unavailable Keri Elias MD Primary Care Provider Unavailable Reason for Visit Reason Onset Date Comments Refill Request 10/03/2016 Meclizine 12.5mg Encounter Details Date Type Department Care Team Description 10/03/2016 Refill [facility] Jasmin Elias Refill Request Clinic MD [place] (Meclizine 12.5mg) [address] [place] [address], [address] [place] [address] Social History Tobacco Use Types Packs/Day Years [...] phrase .smirefuse and route it to the [facility] DR[facility] pool to inform the patient and the pharmacy. Kristina Stafford documented in this encounter Plan of Treatment Not on filedocumented as of this encounter Visit Diagnoses Diagnosis Vertigo Dizziness and giddiness documented in this encounter Care Teams Dry Cell And Battery Assembler Relationship Specialty Start Date End Date Keri Elias PCP - General Family Practice 03/12/15 9 MD Ira Glez David Wayne, MD Orthopedics 07/09/[address] [place] [address] Astrid Rios PA-C Physician Household Appliance Mechanic Physician Household Appliance Mechanic - 07/09/14 Surgical documented as of this encounter
--- OUTSIDE RECORDS SUMMARY | 2022-01-07 13:16 | XMS_ITS | Encounter Summary ---
:1980 Author Organization [place] Address [address] [place] [address] Care Team Providers Name Role Phone Bebteo Roth MD Unavailable Astrid Rios PA-C Unavailable Keri Elais MD Primary Care Provider Unavailable Reason for Visit Reason Comments Care Check to see if fetus is tur teddy correctly Encounter Details Date Type Department Care Team Description 02/14/2017 Office Visit Narda Mcleod Keri Elias of [facility] Clinic MD [place] risk , [address], [address] mauricio ([address]) [place], [place] [address] Social History Tobacco Use Types Packs/Day Years Used Date Smoking Tobacco: Never Smokeless Tobacco: Never Alcohol Use Standard Drinks/Week Comments No 0 (1 standard drink = 0.6 oz pure alcoho l) Sex Assigned at Date Recorded Not on file documented as of this encounter Last Filed Vital Signs Vital Sign Reading Time Taken Comments Blood Pressure 135/83 02/14/2017 8:05 AM AOC OPERATIONS INTELLIGENCE CHIEF Pulse 109 02/14/2017 8:05 AM AOC OPERATIONS INTELLIGENCE CHIEF Temperature 36.4 ??C (97.6 ??F) 02/14/2017 8:05 AM AOC OPERATIONS INTELLIGENCE CHIEF Respiratory Rate - - Oxygen Saturation 100% 02/14/2017 8:05 AM AOC OPERATIONS INTELLIGENCE CHIEF Inhaled Oxygen Concentration - - Weight 79.7 kg (175 lb 12.8 oz) 02/14/2017 8:05 AM AOC OPERATIONS INTELLIGENCE CHIEF Height - - Body Mass Index 31.14 [...] with the final plan. Keri Elias MD OPERATIONS INTELLIGENCE CHIEF documented in this encounter Plan of Treatment Not on filedocumented as of this encounter Procedures Procedure Name Priority Date/Time Associated Diagnosis Comme nts GROUP B STREP PCR Routine 02/14/2017 1:07 PM Supervision of hi gh Results for this AOC OPERATIONS INTELLIGENCE CHIEF risk , procedure ar e in antepartum the results section. documented in this encounter Results Group B strep PCR (GBS) (02/14/2017 1:07 PM AOC OPERATIONS INTELLIGENCE CHIEF) [facility] Method Time Signature Group B Strep Vaginal 02/14/2017 [facility] PCR Spec [place] Rectal 9:10 AM AOC OPERATIONS INTELLIGENCE CHIEF [facility] Group B Strep Negative NEG^Negat 02/15/2017 [facility] franco 11:32 AM AOC OPERATIONS INTELLIGENCE CHIEF [facility] Comment: No GBS DNA detected, presumed negative f or GBS or number of bacteria may be below the limit of detection of the assa y. Assay performed on incubated broth cultu re of specimen using hyaqu real-time PCR. Specimen Anatomical Collection Method Collection Time Receive d Time (Source) Location / / Volume Laterality Vaginal Rectal 02/14/2017 1:07 PM 018 1:12 AOC OPERATIONS INTELLIGENCE CHIEF PM AOC OPERATIONS INTELLIGENCE CHIEF Keri Elias MD LAB - MICRO GENERAL ORDERABL Performing Organization Address City/State/ZIP Code Phon e Number [id number] [place] [address] [place] documented in this encounter Visit Diagnoses Diagnosis Supervision of high risk , ante - Primary documented in this encounter Care Teams Osteopathic Neurologist Relationship Specialty Start Date End Date Keri Elias PCP - General Family Practice 03/12/15 MD Ira Abrams David Wayne, MD Orthopedics 07/09/[address] [place], [place] [phone] [place] [address] Astrid Rios PA-C Physician Building Construction Teacher Physician Building Construction Teacher - 07/09/14 Surgical documented as of this encounter
--- OUTSIDE RECORDS SUMMARY | 2022-01-07 13:16 | XMS_ITS | Encounter Summary ---
:1980 Author Organization [place] Address [facility] [place] [address] Care Team Providers Name Role Phone Bebeto Roth MD Unavailable Astrid Rios PA-C Unavailable [facility] Primary Care Provider + Reason for Referral [facility] - Closed Specialty Diagnoses / Procedures Referred By Contact Refer red To Contact Diagnoses Kyphoscoliosis Astrid Rios PA-C [facility] [address] [place] [address] Referral ID Status Reason Start Date Expiration Date Visits Requ ested Visits Authorized [id number] Closed 07/16/2014 01/12/2015 1 1 Reason for Visit Reason Comments RECHECK s/p spinal fusion 09/3009, ba ck cracking Encounter Details Date Type Department Care Team Description 07/16/2014 Office Visit Orthopaedic Clinic Astrid Rios Kyphoscoliosis (Primary [place] MELISA Dx) Rehabilitation [facility] 1st Floor, [address] [place] [address] [address] [facility] [address] [facility] [phone] [place] [address] Social History Tobacco Use Types [...] back cracking Primary MD: sawyer Ref. MD: Electronic Musical Instrument Repairer? 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 Date of injury: Type of injury: Date [...] ic documented in this encounter Care Teams Tax Compliance Officer Relationship Specialty Start Date End Date Clinic - Angela Laboy PCP - General 07/16/[address] [place] [address] [address] [place] [address] Bebeto Roth MD Orthopedics 07/09/14 [facility] [place] [address] Astrid Rios PA-C Physician Mailer Physician Mailer - 07/09/14 Surgical documented as of this encounter
--- OUTSIDE RECORDS SUMMARY | 2022-01-07 13:16 | XMS_ITS | Encounter Summary ---
:1980 Author Organization [place] Address [address] [facility] [place] [address] Care Team Providers Name Role Phone Bebeto Roth MD Unavailable Astrid Rios PA-C Unavailable Keri Elias MD Primary Care Provider Unavailable Reason for Visit Reason Onset Date Comments Refill Request 10/03/2016 Ondansetron 4mg Encounter Details Date Type Department Care Team Description 10/03/2016 Refill [facility] Jasmin Elias Refill Request Clinic MD [place] (Ondansetron 4mg) [facility] [address], [address] [place], [place] [address] Social History Tobacco Use Types Packs/Day Years [...] phrase .smirefuse and route it to the [facility] PRESTRESSED CONCRETE pool to inform the patient and the pharmacy. Kristina Stafford documented in this encounter Plan of Treatment Not on filedocumented as of this encounter Visit Diagnoses Diagnosis Nausea Nausea alone documented in this encounter Care Teams Labor Relations Analyst Relationship Specialty Start Date End Date Keri Elias PCP - General Family Practice 03/12/15 9 MD Ira Glez David Wayne, MD Orthopedics 07/09/[address] [place] [address] Astrid Rios PA-C Physician Edger Hand Physician Edger Hand - 07/09/14 Surgical documented as of this encounter
--- OUTSIDE RECORDS SUMMARY | 2022-01-07 13:16 | XMS_ITS | Encounter Summary ---
:1980 Author Organization [place] Address [address] [facility] [place] [address] Care Team Providers Name Role Phone Bebeto Roth MD Unavailable Astrid Rios PA-C Unavailable Keri Elias MD Primary Care Provider Unavailable Reason for Visit Reason Comments Ultrasound Encounter Details Date Type Department Care Team Description 10/19/2016 Orders Only [facility] Medicine Clinic A trimester [address] [place] [address] [place] [id number] (Wo rk) Social History Tobacco Use [...] :Mar 08, 2017 EGA by this U/S: [id number] (+/- 7days): VINCENT by this U/S: 03/07/17 EFW 345.95g, 0lb 12oz Weight Percentile: 63.9%tile Follow up: Routine follow up as needed. PCP: Keri Elias Physician/Setter Cold Rolling Machine: Shruthi Bland Indications: Standard Exam and survey LMP: Patient's last menstrual period was 06/01/2016. FHR: 153 BPM Fluid: normal TJ: 10.83 Placenta Location: Posterior and Fundal number:1 Presentation: Cephalic Technique: Transabdominal Machine: EndoDex Pro 5 SURVEY Cerebellum Intracranial Anatomy Normal [...] FL: 3.34 cm 20wks 3d Shruthi Bland, [facility] RVT Attestation of Reviewer. [...] by LMP 20w0d ??VINCENT by LMP :Mar 08, 018 EGA by this U/S: 99cpq3p (+/- 7days): ED D by this ??U/S: 03/07/17 ? EFW 345.95g, 0lb 12oz ??Weight Percentil e: 63.9%tile Follow up: Routine follow up as needed. PCP: Keri Elias Physician/Setter Cold Rolling Machine: Shruthi Ruelas iams Indications: Standard Exam and brittany vey LMP: Patient's last menstrual period was 06/01/2016. ?? FHR: 153 BPM ??Fluid: normal TJ: 10.83 Placenta Location: Posterior and Fundal number:1 ??Presentation: Cephalic Technique: Transabdominal Machine: EndoDex Pro 5 SURVEY ? Cerebellum ? Intracranial [...] cm ?? 20wks 3d ?? Shruthi Bland [facility] RVT Attestation of Reviewer. I reviewed the images and agree with eliu singer interpretation above. August Ontiveros MD Steffanie Parker MD IMG US ORDERABLES documented in this encounter Visit Diagnoses Diagnosis care, second trimester documented in this encounter Care Teams Registered Sales Assistant Relationship Specialty Start Date End Date Keri Elias PCP - General Family Practice 03/12/15 9 MD Ira Glez David Wayne, MD Orthopedics 07/09/14 [facility] [facility] [address] [place] [address] Astrid Rios PA-C Physician Materials Clerk Physician Materials Clerk - 07/09/14 Surgical documented as of this encounter
--- OUTSIDE RECORDS SUMMARY | 2022-01-07 13:16 | XMS_ITS | Encounter Summary ---
:1980 Author Organization [place] Address Pending sale to [facility] [place] [address] Care Team Providers Name Role Phone Bebeto Roth MD Unavailable Astrid Rios PA-C Unavailable Keri Elias MD Primary Care Provider Unavailable Reason for Visit Reason Comments Care Encounter Details Date Type Department Care Team Description 09/08/2016 Office Visit [facility] Keri Elias First t rimester ; Medicine Clinic MD [place] Nausea; [address] [place] [address], [facility] [address] [place] [address] Social History Tobacco Use Types Packs/Day Years [...] giddiness documented in this encounter Care Teams Maintenance Service Supervisor Relationship Specialty Start Date End Date Keri Elias PCP - General Family Practice 03/12/15 9 MD Ira Glez David Wayne, MD Orthopedics 07/09/[address] [place] [address] Astrid Rios PA-C Physician Certified Medical Coding Specialist Physician Certified Medical Coding Specialist - 07/09/14 Surgical documented as of this encounter
--- OUTSIDE RECORDS SUMMARY | 2022-01-07 13:16 | XMS_ITS | Encounter Summary ---
:1980 Author Organization [place] Address [address] [facility] [place] [address] Care Team Providers Name Role Phone Bebeto Roth MD Unavailable Astrid Rios PA-C Unavailable Keri Elias MD Primary Care Provider Unavailable Reason for Visit Reason Comments Orders Encounter Details Date Type Department Care Team Description 07/25/2016 Orders Only [facility] Bebeto Roth is (Primary Dx); Clinic MD eDvan S/P spinal fusion [address] [place] [address] [place] [id number] Social History Tobacco Use Types Packs/Day Years [...] status documented in this encounter Care Teams Library Aide Relationship Specialty Start Date End Date Keri Elias PCP - General Family Practice 03/12/15 9 MD Ira Glez David Wayne, MD Orthopedics 07/09/14 [facility] [place], [place] [address] Astrid Rios PA-C Physician Advertising Sales Assistant Physician Advertising Sales Assistant - 07/09/14 Surgical documented as of this encounter
--- OUTSIDE RECORDS SUMMARY | 2022-01-07 13:16 | XMS_ITS | Encounter Summary ---
:1980 Author Organization [place] Address [address] [place] [address] Care Team Providers Name Role Phone Bebeto Roth MD Unavailable Astrid Rios PA-C Unavailable Clinic - [facility] Primary Care Provider + Reason for Visit Reason Onset Date Comments Refill Request 03/06/2015 minocycline (MINOCIN ,DYNACIN) 100 MG capsule Encounter Details Date Type Department Care Team Description 03/06/2015 Telephone [facility] Lisa Dewitt, Refill Re [facility] DO (minocycline [address] [place] [address], ED [facility] JM (MINOCIN,DYNACIN) [address] capsule) [place], [place] [address] [place], [place] [phone] Social History Tobacco Use Types Packs/Day Years [...] and hung up phone. Clarita Gunderson RN S TEAM LEADER Telephone Encounter - Joana Banerjee CMA - 03/06/2015 1:11 PM CST [facility] Family Medicine phone call message- patient requesting a refill: Full Medication Name: minocycline (MINOCIN,DYNACIN) 100 MG capsule 90 capsule 3 12/31/2013 -- Sig: Take 1 capsule (100 mg) by mouth daily Class: Fax Route: Oral Order: [id number] Dose: Pharmacy confirmed as [facility] [id number] [facility] & [address] [place] [phone] : Yes Additional Comments: OK to leave a message on voice mail? Yes Primary language: Scottish Handkerchief Folder needed? No Call taken on March 06, 2015 at 1:12 PM by Joana Banerjee S TEAM LEADER documented in this encounter Plan of Treatment Not on filedocumented as of this encounter Visit Diagnoses Not on filedocumented in this encounter Care Teams Airborne Operations Relationship Specialty Start Date End Date Clinic - Angela Laboy PCP - General 07/16/[address] [place] [address] [address] [place] [address] Bebeto Roth MD Orthopedics 07/09/[address] [place] [address] Astrid Rios PA-C Physician Middle School Teacher Physician Middle School Teacher - 07/09/14 Surgical documented as of this encounter
--- OUTSIDE RECORDS SUMMARY | 2022-01-07 13:16 | XMS_ITS | Encounter Summary ---
:1980 Author Organization [place] Address [address] [facility] [place] [address] Care Team Providers Name Role Phone Bebeto Roth MD Unavailable Astrid Rios PA-C Unavailable Keri Elias MD Primary Care Provider Unavailable Reason for Visit Reason Comments Care NOB Encounter Details Date Type Department Care Team Description 08/05/2016 Office Visit [facility] Keri Elias Vertigo (Primary Dx); Medicine Clinic MD [place] test positive; [address], [facility] ; [address] Encounter for supervision of normal first in first trimester; [place], [place] [address] High-risk , first t [facility] [phone] Social History Tobacco Use Types Packs/Day Years [...] PM CDT Thank you for coming to [facility]! - If you had lab testing [...] following numbers --f your referral is for [facility] please call [phone] --If your referral is to outside [facility] please call the clinic number ([phone]) and ask for your team child caregiver private home. - If you need any refills please call your pharmacy and they will contact us. - If you have any concerns about today's visit or wish to schedule another appointment please call our office [phone] (8-5:00 M-F) - If you have urgent medical concerns call [phone] at any time of the day. - If you have a medical emergency please call [phone]. Because you are , we have additional resources for you: - You may call Mratha Barfield, our OB coordinator at [phone] during normal business hours, for non-urgent questions about your . - Immediate OB help is also available 24 hours a day, seven days a week via the [facility] at [phone]. Reminders: Before 14 weeks: dating ultrasound This [...] or baby. Again, thank you for choosing [facility]. Please let us know how we can best partner with you to improve your and your family's health. Thank you for coming to [facility]! - If you had lab testing today [...] following numbers --f your referral is for [facility] please call [phone] --If your referral is to outside [facility] please call the clinic number ([phone]) and ask for your team child caregiver private home. - If you need any refills please call your pharmacy and they will contact us. - If you have any concerns about today's visit or wish to schedule another appointment please call our office [phone] (8-5:00 M-F) - If you have urgent medical concerns call [phone] at any time of the day. - If you have a medical emergency please call [phone]. Because you are , we have additional resources for you: - You may call Martha Barfield, our OB coordinator at [phone] during normal business hours, for non-urgent questions about your . - Immediate OB help is also available 24 hours a day, seven days a week via the [facility] at [phone]. Reminders: Before 14 weeks: dating ultrasound This [...] or baby. Again, thank you for choosing [facility]. Please let us know how we [...] No Down's syndrome No Lucas-Sach's disease No Norwalk's chorea No Any other inherited genetic or [...] 0 ??? fluticasone (FLONASE) 50 MCG/ACT spray Amalia 1-2 sprays into both nostrils daily 16 [...] type and screen (08/05/2016 2:21 PM CDT) [facility] gist Method Time Signature ABO O [facility] RH(D) Pos [facility] Antibody Neg UNIVERSITY [facility] Test Valid [facility] w Hospital Specimen 08/08/2016 UNIVERSITY OF [facility] Specimen Anatomical Collection Method Collection Time Receive d Time (Source) Location / / Volume Laterality Blood specimen VENOUS BLOOD / 08/05/2016 2:21 PM 08/05 2:26 (specimen) Unknown CDT PM CDT Keri Elias MD LAB - BLOOD BANK TEST ORDER Performing Organization Address City/State/ZIP Code Phon e Number [facility] [address] [place], [place] [phone] [place] [address] Varicella Zoster Virus Antibody IgG (08/05/2016 11:55 AM CDT) P athologist Signature Varicella 0.4 0.0 - 0.8 UNIVERSITY Zoster Virus AI PR MEDICAL Antibody IgG [facility] Comment: Negative, suggests no immunologic exposu re. [...] Organization Address City/State/ZIP Code Phon e Number [address] Rubella Antibody IgG Quantitative (08/05/2016 11:55 AM CDT) Analysis Performed At Patho logist Time Signature Rubella Antibody 24 IU/mL UNIVERSITY OF IgG Quantitative [facility] Comment: Positive. ??Suggests previous exposure o r [...] LAB - BLOOD ORDERABLES Performing Organization Address City/[facility]/ZIP Code Phon e Number [address] HIV Antigen Antibody Combo (08/05/2016 11:55 AM CDT) Patholo gist Method Time Signature HIV Antigen Nonreactive NR UN[facility]ITY OF [facility] HIV-1 p24 Ag & HIV-1/HIV-2 Ab Not Detected [facility] Combo [facility] Specimen Anatomical Collection Method Collection Time Receive d Time (Source) Location / / Volume Laterality Blood specimen VENOUS BLOOD / 08/05/2016 11:55 017 (specimen) Unknown AM CDT 12:00 PM CDT Keri Elias MD LAB - BLOOD ORDERABLES Performing Organization Address City/State/ZIP Code Phon e Number [facility] [address] [place], [place] [phone] [place] [address] Anti Treponema (08/05/2016 11:55 AM CDT) Analysis Performed At Patho logist Time Signature Treponema Negative NEG UNIVERSITY OF pallidum [facility] Antibody [facility] Specimen Anatomical Collection Method Collection Time Receive d Time (Source) Location / / Volume Laterality Blood specimen VENOUS BLOOD / 08/05/2016 11:55 017 (specimen) Unknown AM CDT 12:00 PM CDT Keri Elias MD LAB - BLOOD ORDERABLES Performing Organization Address City/State/ZIP Code Phon e Number [address] (ABNORMAL) Hepatitis B Surface Antibody (08/05/2016 11:55 AM CDT) [facility] Method Time Signature Hepatitis B 378.74 (H) <8.00 UNIVERSITY OF Surface m[IU]/mL [facility] Comment: Reactive, Patient is considered to be [...] LAB - BLOOD ORDERABLES Performing Organization Address City/[facility]/ZIP Code Phon e Number [phone] [place] [address] Hepatitis B surface antigen (08/05/2016 11:55 AM CDT) [facility] Method Time Signature Hep B Surface Nonreactive NR UNIV[facility]ITY [facility] Specimen Anatomical Collection Method Collection Time Receive d Time (Source) Location / / Volume Laterality Blood specimen VENOUS BLOOD / 08/05/2016 11:55 017 (specimen) Unknown AM CDT 12:00 PM CDT Keri Elias MD LAB - BLOOD ORDERABLES Performing Organization Address City/State/ZIP Code Phon e Number [phone] [place] [address] HPV High Risk Types DNA Cervical (08/05/2016 9:36 AM CDT) Component Value Ref Test Analysis Performed At [facility] Method Time Signature HPV 16 DNA Negative NEG [facility] HPV 18 DNA Negative NEG [facility] Other HR HPV Negative NEG [facility] Final This patient's sample is negative for HPV DNA. UNIVERSITY Diagnosis (Note) OF PR METHODOLOGY: ??The Jeff mile 4800 system uses automated extraction, MEDICAL simultaneous amplification of HPV (L1 region) and beta-globi n, [facility] followed by ??real time detection of fluorescent [...] and its performance characteristics determined by the [facility], [facility]. It has not been cleared or approved by the FDA. The laboratory is regulated under CLIA as qualified to perform high-complexity testing. This test is used for clinical purp oses. It should not be regarded as investigational or for research. Specimen Cervical Cells UNIVERSITY Description [id number] [facility] Specimen Anatomical Collection Method Collection Time Receive d Time (Source) Location / / Volume Laterality Cervical Cells 08/05/2016 9:36 AM 017 CDT 12:04 PM CDT Keri Elias MD LAB - BLOOD ORDERABLES Performing Organization Address City/State/ZIP Code Phon e Number [facility] [address] [place], [place] [phone] [place] [address] Pap imaged thin layer screen with HPV - recommended age 30 - 65 years (select HPV order below) (08/05/2016 9:36 AM CDT) Component Value Ref Test Analysis Performed At [facility] Range Method Time Signature PAP NIL TITA Young Report COPATH Acc#: [id number] ?? Signed: 08/09/2016 13:30 ?? MR#: [id number] SPECIMEN/STAIN PROCESS: Pap imaged thin layer [...] rcinomas or other cancers. TESTING LAB LOCATION: ??[facility], [facility], [address] [place] [phone], Processed and screened at [facility] nt, [facility] Specimen Anatomical Collection Method Collection Time Receive d Time (Source) Location / / Volume Laterality Cervical Cells 08/05/2016 9:36 AM 017 9:15 CDT AM CDT Keri Elias MD LAB - OPTIME CLINICAL SPECIM EN Performing Organization Address City/State/ZIP Code Phon e Number COPATH Chlamydia trachomatis PCR (08/05/2016 9:34 AM CDT) Component Value Ref Test Analysis Performed At [facility] gist Range Method Time Signature Specimen Cervical [facility] Chlamydia Negative NEG UNIVERSITY OF [facility] Negative for C. trachomatis rRNA by tie up worker mediated amplification. PR MEDICAL PCR A negative result by transc ription mediated amplification does not preclude the [facility] presence of C. trachomatis infection because re [...] Organization Address City/State/ZIP Code Phon e Number [phone] [place] [address] CLINIC [place] Neisseria gonorrhoeae PCR (08/05/2016 9:34 AM CDT) Component Value Ref Test Analysis Performed At Patholo gist Range Method Time Signature Specimen Cervical [facility] ER N Gonorrhea Negative NEG UNIVERSITY PCR Negative for N. gonorrhoeae rRNA by transcripti on mediated amplification. PR MEDICAL A negative result by transc ription mediated amplification does not preclude the [facility] presence of N. gonorrhoeae infection because re [...] MICRO GENERAL ORDERABL ES Performing Organization Address City/[facility]/ZIP Code Phon e Number [address] (ABNORMAL) Hemoglobin (HGB) ([facility]) (08/05/2016 9:09 AM CDT) P athologist Signature Hemoglobin 17.8 (H) 11.7 - 15.7 [facility] g/dL MEDICINE LABDAQ Specimen Anatomical Collection Method Collection Time Receive d Time (Source) Location / / Volume Laterality Blood specimen VENOUS BLOOD / 08/05/2016 9:09 AM 08/05 9:09 (specimen) Unknown CDT AM CDT Keri Elias MD LAB - LABDAQ Performing Organization Address City/State/ZIP Code Phon e Number [address] [address] LAB[facility]Q documented in this encounter Visit Diagnoses Diagnosis Vertigo - Primary Dizziness and giddiness test positive examination or test, positive result First trimester Encounter for supervision of normal firs t in first trimester Supervision of normal first High-risk , first trimester documented in this encounter Care Teams Laminator Hand Relationship Specialty Start Date End Date Keri Elias PCP - General Family Practice 03/12/15 9 MD Ira Glez David Wayne, MD Orthopedics 07/09/[address] [place] [address] Astrid Rios PA-C Physician Operating Cost Clerk Physician Operating Cost Clerk - 07/09/14 Surgical documented as of this encounter
--- OUTSIDE RECORDS SUMMARY | 2022-01-07 13:16 | XMS_ITS | Encounter Summary ---
:1980 Author Organization [place] Address [address] [place] [address] Care Team Providers Name Role Phone Bebeto Roth MD Unavailable Astrid iRos PA-C Unavailable Keri Elias MD Primary Care Provider Unavailable Reason for Visit Reason Onset Date Comments Refill Request 08/11/2016 ondansetron (ZOFRAN) 4 MG tablet Encounter Details Date Type Department Care Team Description 08/11/2016 Refill [facility] Jasmin Elias Refill Request Clinic MD [place] (ondansetron (ZOFRAN) [address]) [address] [place], [place] [address] Social History Tobacco Use Types [...] phrase .smirefuse and route it to the [facility] to inform the patient and the pharmacy. Kristina Stafford Telephone Encounter - Tala Velasco CMA - 08/11/2016 12:38 PM CDT [facility] Family Medicine phone call message- patient requesting a refill: Full Medication Name: ondansetron (ZOFRAN) 4 MG tablet Pharmacy confirmed as [id number] - [place], [place] - [address] [facility] [address] [facility] [phone] : Yes Additional Comments: None OK to leave a message on voice mail? Yes Primary language: [place] Stock Plan Administrator needed? No Call taken on August 11, 2016 at 12:38 PM by Tala Velasco documented in this encounter Plan of Treatment Not on filedocumented as of this encounter Visit Diagnoses Diagnosis Nausea Nausea alone documented in this encounter Care Teams Precision Optics Technician Relationship Specialty Start Date End Date Keri Elias PCP - General Family Practice 03/12/15 9 MD Ira Glez, Bebeto Hartman MD Orthopedics 07/09/[address] [place] [address] [address] [place] [address] Astrid Rios PA-C Physician It Application Development Manager Physician It Application Development Manager - 07/09/14 Surgical documented as of this encounter
--- OUTSIDE RECORDS SUMMARY | 2022-01-07 13:16 | XMS_ITS | Encounter Summary ---
:1980 Author Organization [place] Address [address] [facility] [place] [address] Care Team Providers Name Role Phone Bebeto [...] glucose tolerance, antepartum; [address] test positive [place] [id number] Social History Tobacco Use Types Packs/Day Years [...] Aerobic Bacterial - Urinalysis, Micro If (UA) (Renovo's) 3. Abnormal maternal glucose tolerance, antepartum Pt [...] Component Value Ref Test Analysis Performed At [facility] gist Range Method Time Signature Specimen Midstream Urine INFECTIOUS Description DISEASE DIAGNOSTIC LABORATORY Special Specimen 12/14/2016 [facility] received in 5:38 PM CDT [facility] preservative [facility] Culture Micro 50,000 to 100,000 colonies/mL 2016 [...] KRISTIAN <=4 ug/mL: Rebekah ceptible Comment: Cefazolin KRISTINA breakpoints ar e for the treatment of [...] MICRO GENERAL ORDERABL ES Performing Organization Address City/[facility]/ZIP Code Phon e Number INFECTIOUS DISEASES [address] [place] [address] DIAGNOSTIC LABORATORY, [facility] INFECTIOUS DISEASE [address] [place] [address], [facility] DIAGNOSTIC LABORATORY [address] [address], [facility] Anti Treponema (12/14/2016 1:01 PM CDT) athologist Signature Treponema Negative NEG^Negati 12/15/2016 [facility] CL[facility]ICS Antibody [place] Specimen Anatomical Collection Method Collection Time Receive d Time (Source) Location / / Volume Laterality Blood specimen VENOUS BLOOD / 12/14/2016 1:01 PM 12/14 1:06 (specimen) Unknown CDT PM CDT Keri Elias MD LAB - BLOOD ORDERABLES Performing Organization Address City/[facility]/ZIP Code Phon e Number [facility] [place] [address] [place] [address] 275 (ABNORMAL) Hemoglobin (HGB) (LabDAQ) (12/14/2016 9:32 AM CDT) athologist [facility] Hemoglobin 9.3 (L) 11.7 - 15.7 [facility] g/dL MEDICINE LABDAQ Specimen (Source) Anatomical Collection Method Collection Time Re ceived Time Location / / Volume Laterality Blood specimen VENOUS BLOOD / 12/14/2016 9:32 AM (specimen) Unknown CDT Keri Elias MD LAB - LABDAQ Performing Organization Address City/[facility]/ZIP Code Phon e Number [facility] MEDICINE [address] [place], [place] [address] LABDAQ (ABNORMAL) Urinalysis, Micro If (UA) ([facility]ovo's) (12/14/2016 9:32 AM CDT) [facility] gist Method Time Signature Specific [place] 1.010 1.005 - [facility] Urine 1.030 FAMILY MEDICINE LABDAQ pH Urine 6.0 4.5 - 8.0 [facility] LABDAQ Leukocyte 3+ (A) NEGATIVE [facility] Esterase UR FAMILY MEDICINE LABDAQ Nitrite Urine Positive (A) NEGATIVE [facility] LABDAQ Protein UR 2+ (A) NEGATIVE [facility] LABDAQ Glucose Urine Trace (A) NEGATIVE [facility] LABDAQ Ketones Urine Trace (A) NEGATIVE [facility] LABDAQ Urobilinogen 2.0 E.U./dL 0.2 E.U./dL [facility] mg/dL (A) FAMILY MEDICINE LABDAQ Bilirubin UR 1+ (A) NEGATIVE [facility] LABDAQ Blood UR 2+ (A) NEGATIVE [facility] LABDAQ Specimen Anatomical Collection Method Collection Time Receive d Time (Source) Location / / Volume Laterality Urine specimen 12/14/2016 9:32 AM 017 9:32 (specimen) CDT AM CDT Keri Elias MD LAB - LABDAQ Performing Organization Address City/[facility] Code Phon e Number [facility] [address] [place] [phone] LABDAQ (ABNORMAL) Glucose Challenge 1 Hr ([facility]ovo's) (12/14/2016 9:32 AM CDT) P athologist Signature Glu Gest 165 (H) 0 - 129 [facility] FAMILY Screen 1hr 50g MEDICINE LABDAQ Specimen (Source) Anatomical Collection Method Collection Time Re ceived Time Location / / Volume Laterality Blood specimen VENOUS BLOOD / 12/14/2016 9:32 AM (specimen) Unknown CDT Keri Elias MD LAB - LABDAQ Performing Organization Address City/State/[facility] Phon e Number [facility] [address] [place] [address] LABDAQ documented in this encounter Visit Diagnoses Diagnosis Supervision of high risk , ante - Primary Dysuria Abnormal maternal glucose tolerance, ant epartum test positive examination or test, positive result documented in this encounter Care Teams Hand Spring Repairer Helper Relationship Specialty Start Date End Date Keri Elias PCP - General Family Practice 03/12/15 MD Ira Abrams, Bebeto Hartman MD Orthopedics 07/09/14 [facility] [place] [place] [id number] [place] [address] Astrid Rios PA-C Physician Rail Signal Worker Physician Rail Signal Worker - 07/09/14 Surgical documented as of this encounter
--- OUTSIDE RECORDS SUMMARY | 2022-01-07 13:16 | XMS_ITS | Encounter Summary ---
:1980 Author Organization [place] Address [facility] [place] [address] Care Team Providers Name Role Phone Bebeto [...] cy test positive (Primary Dx); Medicine Clinic OUTSOLE CEMENTER FINAL APPLICATION REVIEWER Dysuria; [address] [place] [address] nxiety; [address] [place] [address] [phone] (Wo rk) Social History Tobacco Use Types [...] allergies - fluticasone (FLONASE) 50 MCG/ACT spray; [place] 1-2 sprays into both nostrils daily Dispense: 16 g; Refill: 3 5. test positive - HCG Qualitative Urine (UPT) ([facility]) Results for orders placed or performed in visit on 07/04/16 HCG Qualitative Urine (UPT) ([facility]) Result Value Ref Range HCG Qual Urine POSITIVE Negative Thank you for coming to [facility] today. Lab Testing: If you had lab testing today and your results are reassuring or normal they will be mailed to you or sent through [facility] within 7 days. If the lab tests need quick action we will call you with the results. The phone number we will call with results is # [phone] (home) . If this is not the best numberplease call our clinic and change the number. Medication Refills: If you need any refills please call your pharmacy and they will contact us. If you need to pick up man your refill at a new pharmacy, please contact the new pharmacy directly. The new pharmacy will help you get your medications transferred faster. Scheduling: If you have any concerns about today's visit or wish to schedule another appointment please call o[facility] during normal business hours [phone] (8- 5:00 M-F) If a referral was made to a [facility] and you don't get a call from [facility] please call [phone]. If a Mammogram was ordered for you at [facility] call [phone] to schedule or change yourappointment. If you had an XRay/CT/Ultrasound/MRI ordered the number is [phone] to schedule or change your radiology appointment. Medical Concerns: If you have urgent medical concerns please call [phone] at any time of the day. If [...] Dysuria - Cancel: Urinalysis, Micro If (UA) ([facility]) - unable to run due to patient [...] allergies - fluticasone (FLONASE) 50 MCG/ACT spray; [place] 1-2 sprays into both nostrils daily Options [...] Range Method Time Signature Specimen Midstream Urine [facility] Special Specimen received [facility] Requests in preservative [facility] Culture Micro 10,000 to 50,000 colonies/mL Jia albicans / dubliniensis Jia albicans and INFECTIOUS Jia dubliniensis are not routinely speciated [facility] eptibility testing not DISEASE routinely done DIAGNOSTIC [...] Code Phon e Number INFECTIOUS DISEASES [address] [place] [address] DIAGNOSTIC LABORATORY, [place] [address] [place] [address], [address] [address], [facility] INFECTIOUS DISEASE [address] [place] [address], [facility] DIAGNOSTIC LABORATORY HCG Qualitative Urine (UPT) ([facility]) (07/04/2016 4:24 PM CDT) athologist Signature HCG Qual Urine POSITIVE Negative [facility] LABDAQ Specimen Anatomical Collection Method Collection Time Receive d Time (Source) Location / / Volume Laterality Urine specimen 07/04/2016 4:24 PM 017 4:25 (specimen) CDT PM CDT [place]ylene [place] OUTSOLE CEMENTER FINAL APPLICATION REVIEWER LAB - LABDAQ Performing Organization Address City/State/ZIP Code Phon e Number [facility] [address] [place], [place] [address] LABDAQ documented in this encounter Visit Diagnoses Diagnosis test positive - Primary examination or test, positive result Dysuria Anxiety Anxiety state, unspecified Environmental allergies Allergic rhinitis, cause unspecified documented in this encounter Care Teams Sane Nurse Relationship Specialty Start Date End Date Keri Elias PCP - General Family Practice 03/12/15 9 MD Ira Glez, Bebeto Hartman MD Orthopedics 07/09/14 [facility] [address] [place] [address] Astrid Rios PA-C Physician Military Equipment Specialist Physician Military Equipment Specialist - 07/09/14 Surgical documented as of this encounter
--- OUTSIDE RECORDS SUMMARY | 2022-01-07 13:16 | XMS_ITS | Encounter Summary ---
:1980 Author Organization [place] Address [address] [facility] [place] [address] Care Team Providers Name Role Phone Bebeto Roth MD Unavailable Astrid Rios PA-C Unavailable Keri Elias MD Primary Care Provider Unavailable Reason for Visit Reason Onset Date Comments Call To Schedule Appointment 07/05/2016 NOB Appt Re quest Encounter Details Date Type Department Care Team Description 07/05/2016 Telephone [facility] Keri Elias Call To Schedule Medicine Clinic MD [place] Appointment (NOB Appt [address], Request ) [address] [place], [place] [address] Social History Tobacco Use Types [...] filedocumented in this encounter Care Teams Tool Liaison Relationship Specialty Start Date End Date Keri Elias PCP - General Family Practice 03/12/15 9 MD Ira Glez David Wayne, MD Orthopedics 07/09/14 [facility] [place], [place] [id number] [place] [address] Astrid Rios PA-C Physician Soil Conservation Teacher Physician Soil Conservation Teacher - 07/09/14 Surgical documented as of this encounter
--- OUTSIDE RECORDS SUMMARY | 2022-01-07 13:16 | XMS_ITS | Encounter Summary ---
:1980 Author Organization [place] Address [address] [facility] [address] Care Team Providers Name Role Phone Bebeto Roth MD Unavailable Astrid Rios PA-C Unavailable Keri Elias MD Primary Care Provider Unavailable Reason for Visit Reason Comments Ultrasound Encounter Details Date Type Department Care Team Description 08/03/2016 Orders Only [facility] Shruthi Bland Pregn tyler test Medicine Clinic A positive (Primary Dx) [address] [place] [address] [place] [phone] (Wo rk) Social History Tobacco Use [...] as needed. Patient:Azul Garg : PCP:Keri Elias Physician/Aerial Photogrammetrist: Shruthi Bland Indications: Dating LMP: Patient's last menstrual period was 06/01/2016. Technique: Transabdominal Machine: GE Logiq Pro 5 GESTATION & EMBRYO SURVEY: Location of :Intrauterine Cardiac activity: Present at 183 bpm Yolk Sac: Normal Rt Ovary : Unobserved Lt Ovary : Unobserved Measurements: CRL: 2.63 cm 9 wks 3d Shruthi Bland, [facility] RVT Attestation of Reviewer. I reviewed [...] as needed. Patient:Azul Garg : PCP:Keri Elias Physician/Aerial Photogrammetrist: Shruthi rojo Indications: Dating LMP: Patient's last menstrual period was 06/01/2016. ?? Technique: Transabdominal Machine: OKpanda Logiq Pro 5 GESTATION & EMBRYO SURVEY: Location of :Intrauterine Cardiac activity: Present at 183 bpm Yolk Sac: Normal ? Rt Ovary : Unobserved Lt Ovary : Unobserved Measurements: ? CRL: ??2.63 cm 9 wks 3d Shruthi Bland RDMS RVT Attestation of Reviewer. I reviewed the images and agree with eliu singer interpretation above. August Ontiveros MD [place] REAMING PRESS OPERATOR PLANT OPERATOR CONTROL ROOM OPERATOR IMG US ORDERABLES documented in this encounter Visit Diagnoses Diagnosis test positive - Primary examination or test, positive result documented in this encounter Care Teams Cnc Operator Machinist Relationship Specialty Start Date End Date Keri Elais PCP - General Family Practice 03/12/15 9 MD Ira Glez David Wayne, MD Orthopedics 07/09/[address] [place] [address] Astrid Rios PA-C Physician Internal Combustion Engine Inspector Physician Internal Combustion Engine Inspector - 07/09/14 Surgical documented as of this encounter
--- OUTSIDE RECORDS SUMMARY | 2022-01-07 13:16 | XMS_ITS | Encounter Summary ---
:1980 Author Organization [place] Address [facility]0 [facility] [place] [address] Care Team Providers Name Role Phone Meeta Dewittanda Primary Care Provider Encounter Details Date Type Department Care Team Description 06/05/2014 Radiant Appointment [facility] ORTHO XRAY Bebeto Roth Scoliosis; CYNDI MICHELLE Hartman MD S/P spinal fusion [place] [id number] [place] [address] FLOOR, CLINIC [address] [facility] [address] [place], [place] [phone] (Work) [phone] Social History Tobacco Use Types Packs/Day Years [...] the cervicothoracic junction lying approximately 6 cm pigeon fancier ior to the lumbosacral junction. Stable mild [...] the cervicothoracic junction lying approximately 6 cm pigeon fancier ior to the lumbosacral junction. Stable mild [...] status documented in this encounter Care Teams Conference Interpreter Relationship Specialty Start Date End Date Lisa Dewitt DO PCP - General 08/12/13 07/15/14 [facility] 2019 [place] [address] documented as of this encounter
--- OUTSIDE RECORDS SUMMARY | 2022-01-07 13:16 | XMS_ITS | Encounter Summary ---
:1980 Author Organization [place] Address [address] [place] [address] Care Team Providers Name Role Phone Bebeto Roth MD Unavailable Astrid Rios PA-C Unavailable Keri Elias MD Primary Care Provider Unavailable Reason for Visit Reason Comments Sinus Problem Refill Request minocycline (MINOCIN,DYNACIN ) 100 MG capsule Encounter Details Date Type Department Care Team Description 03/12/2015 Office Visit [facility], Acne vulgari s (Primary Dx); Medicine Clinic Keri Glez MD Environmental allergies; [address], Anxiety ; [address] Panic attack [place] [address] Social History Tobacco Use Types Packs/Day Years Used Date Smoking Tobacco: Never Smokeless Tobacco: Never Alcohol Use Standard Drinks/Week Comments No 0 (1 standard drink = 0.6 oz pure alcoho l) Sex Assigned at Date Recorded Not on file documented as of this encounter Last Filed Vital Signs Vital Sign Reading Time Taken Comments Blood Pressure 115/78 03/12/2015 10:03 AM INSURANCE LAW SPECIALIST Pulse 109 03/12/2015 10:03 AM INSURANCE LAW SPECIALIST Temperature 36.6 ??C (97.9 ??F) 03/12/2015 10:03 AM INSURANCE LAW SPECIALIST Respiratory Rate - - Oxygen Saturation 99% 03/12/2015 10:03 AM INSURANCE LAW SPECIALIST Inhaled Oxygen Concentration - - Weight 71.4 kg (157 lb 6.4 oz) 03/12/2015 10:03 AM INSURANCE LAW SPECIALIST Height - - Body Mass Index 27.44 [...] length 25 minutes, all spent counseling directly inwj-iv-awae about medications. RANCE LAW SPECIALIST documented in this encounter Plan of Treatment Not on filedocumented as of this encounter Visit Diagnoses Diagnosis Acne vulgaris - Primary Other acne Environmental allergies Allergic rhinitis, cause unspecified Anxiety Anxiety state, unspecified Panic attack Panic disorder without agoraphobia documented in this encounter Care Teams Stereoptician Relationship Specialty Start Date End Date Keri Elias PCP - General Family Practice 03/12/15 9 MD Ira Glez David Wayne, MD Orthopedics 07/09/[address] [place] [address] Astrid Rios PA-C Physician Internal Combustion Engine Subassembler Physician Internal Combustion Engine Subassembler - 07/09/14 Surgical documented as of this encounter
--- OUTSIDE RECORDS SUMMARY | 2022-01-07 13:16 | XMS_ITS | Encounter Summary ---
:1980 Author Organization [place] Address [facility]0 [facility] [place] [address] Care Team Providers Name Role Phone Lisa Dewitt DO Primary Care Provider Reason for Referral [facility] - Closed Specialty Diagnoses / Procedures Referred By Contact Refer red To Contact Diagnoses Scoliosis/kyphoscoliosis Bebeto Roth MD [facility] [facility] [address] [place], [place] [address] Referral ID Status Reason Start Date Expiration Date Visits Requ ested Visits Authorized [id number] Closed 06/05/2014 12/02/2014 1 1 Reason for Visit Reason Comments Surgical Followup s/p spinal fusion 09/3009, pt . states she is noticing some curve changes Encounter Details Date Type Department Care Team Description 06/05/2014 Office Visit Orthopaedic Clinic Bebeto Roth Scoliosis/kyphoscolio [facility] MD [facility] (Primary Dx) Center [address] 1[address] Floor, [address] [phone] Social History Tobacco Use Types Packs/Day Years [...] the realm of a small change management analyst the past 4 years. 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 Date of injury: none Date of surgery: [...] Name Type Priority Associated Diagnoses Order S [facility] PHYSICAL THERAPY Referral Routine Scoliosis/kyphoscoliosis Expected: 06/05/2014, REFERRAL Expires: 2015 (External-Prints) documented as of this encounter Visit Diagnoses Diagnosis Scoliosis/kyphoscoliosis - Primary Scoliosis (and kyphoscoliosis), idiopath ic documented in this encounter Care Teams Urban Anthropologist Relationship Specialty Start Date End Date Lisa Dewitt DO PCP - General 08/12/13 07/15/14 [facility] 2019 [place] [address] documented as of this encounter
--- OUTSIDE RECORDS SUMMARY | 2022-01-07 13:16 | XMS_ITS | Encounter Summary ---
:1980 Author Organization [place] Address [facility]0 [facility] [place] [address] Care Team Providers Name Role Phone Bebeto Roth MD Unavailable Astrid Rios PA-C Unavailable Keri Elias MD Primary Care Provider Unavailable Reason for Visit Reason Onset Date Comments Care f/u Erroneous encounter-disregard 01/27/2017 Encounter Details Date Type Department Care Team Description 01/27/2017 Office Visit [facility] Keri Elias Medicine Clinic MD [place] ENCOUNTER--DISREGARD [address], (Primar y Dx) [address] [place] [address] Social History Tobacco Use Types Packs/Day Years Used Date Smoking Tobacco: Never Smokeless Tobacco: Never Alcohol Use Standard Drinks/Week Comments No 0 (1 standard drink = 0.6 oz pure alcoho l) Sex Assigned at Date Recorded Not on file documented as of this encounter Last Filed Vital Signs Vital Sign Reading Time Taken Comments Blood Pressure 114/76 01/27/2017 2:15 PM CIRCUIT BREAKER MECHANIC Pulse 99 01/27/2017 2:15 PM CIRCUIT BREAKER MECHANIC Temperature 36.7 ??C (98 ??F) 01/27/2017 2:15 PM CIRCUIT BREAKER MECHANIC Respiratory Rate - - Oxygen Saturation 100% 01/27/2017 2:15 PM CIRCUIT BREAKER MECHANIC Inhaled Oxygen Concentration - - Weight 79.5 kg (175 lb 3.2 oz) 01/27/2017 2:15 PM CIRCUIT BREAKER MECHANIC w / shoes Height - - Body Mass Index 31.04 08/05/2016 8:14 AM CDT documented in this encounter Progress Notes Tristan Pham CMA - 01/27/2017 2:57 PM CST This encounter was opened in error. Please disregard. UIT BREAKER MECHANIC documented in this encounter Plan of Treatment Not on filedocumented as of this encounter Visit Diagnoses Diagnosis ERRONEOUS ENCOUNTER--DISREGARD - Primary documented in this encounter Care Teams Compliance Review Specialist Relationship Specialty Start Date End Date Keri Elias PCP - General Family Practice 03/12/15 9 MD Ira Glez David Wayne, MD Orthopedics 07/09/[address] [place] [address] Astrid Rios PA-C Physician Inside Sales Account Manager Physician Inside Sales Account Manager - 07/09/14 Surgical documented as of this encounter
--- OUTSIDE RECORDS SUMMARY | 2022-01-07 13:16 | XMS_ITS | Encounter Summary ---
:1980 Author Organization [place] Address [address] [facility] [place] [address] Care Team Providers Name Role Phone Bebeto Roth MD Unavailable Astrid Rios PA-C Unavailable Keri Elias MD Primary Care Provider Unavailable Reason for Visit Reason Onset Date Comments Refill Request 07/08/2016 Kirsten Encounter Details Date Type Department Care Team Description 07/08/2016 Refill [facility] Family Medicine Jasmin Elias Refill Request (Kirsten) Clinic MD [place] [facility] [address] [place] [address], [address] [place], [place] [address] Social History Tobacco Use Types [...] and route [facility] to inform the patient and the pharmacy. Clementina Curtis CMA Telephone Encounter - Nuzhat Hong - 07/08/2016 4:05 PM CDT [facility] Family Medicine phone call message- patient requesting a refill: Full Medication Name: ondansetron (ZOFRAN) tablet 4 mg Pharmacy confirmed as [id number] - [place] - [address] [place] [id number] : Yes Additional Comments: Patient was unable [...] message on voice mail? Yes Primary language: Icelandic Rib Trim Separator needed? No Call taken on July 08, 2016 at 4:05 PM by Nuzhat Hong documented in this encounter Plan of Treatment Not on filedocumented as of this encounter Visit Diagnoses Diagnosis Nausea - Primary Nausea alone documented in this encounter Care Teams Printer Small Print Shop Relationship Specialty Start Date End Date Keri Elias PCP - General Family Practice 03/12/15 9 MD Ira Glez David Wayne, MD Orthopedics 07/09/14 [facility] [address] [facility] [address] [place] [address] Astrid Rios PA-C Physician Inverter And Clipper Physician Inverter And Clipper - 07/09/14 Surgical documented as of this encounter
--- OUTSIDE RECORDS SUMMARY | 2022-01-07 13:16 | XMS_ITS | Encounter Summary ---
:1980 Author Organization [place] Address [address] [facility] [place] [address] Care Team Providers Name Role Phone Bebeto Roth MD Unavailable Astrid Rios PA-C Unavailable Keri Elias MD Primary Care Provider Unavailable Encounter Details Date Type Department Care Team Description 12/16/2016 Telephone [facility] [address] [place] [address], [address] [place], [place] [address] Social History Tobacco Use Types [...] on filedocumented in this encounter Care Teams Endoscopy Rn Relationship Specialty Start Date End Date Keri Elias PCP - General Family Practice 03/12/15 9 MD Ira Glez David Wayne, MD Orthopedics 07/09/14 [facility] [address] Astrid Rios PA-C Physician Event Coordinator Marketing And Sales Physician Event Coordinator Marketing And Sales - 07/09/14 Surgical documented as of this encounter
--- OUTSIDE RECORDS SUMMARY | 2022-01-07 13:16 | XMS_ITS | Encounter Summary ---
:1980 Author Organization [place] Address [address] [facility] [address] Care Team Providers Name Role Phone Bebeto Roth MD Unavailable Astrid Rios PA-C Unavailable [facility] Primary Care Provider + Reason for Visit [facility] (Routine) - Closed Specialty Diagnoses / Procedures Referred By Contact Refer red To Contact Bebeto Roth MD ZZ [facility] MANJULA COSTA [address] [place] [address] [address] SMITH [place], [place] [address] [address] [place] [phone] Phone: Fax: Referral ID Status Reason Start Date Expiration Date Visits Requ ested Visits Authorized NYA/HP/LBP Closed 08/04/2014 02/12/2015 20 18 Encounter Details Date Type Department Care Team Description 08/04/2014 Therapy Visit [place] for Evan Alejandra, Pain in thoracic spine (Primary Dx); Athletic Medicine - PT Other orthopedic aftercare(V54.89); Manjula Costa [facility] MANJULA COSTA Scoliosis PhysicalTherapy [address] [place] [address] [address] [place] [phone] Social History Tobacco Use Types Packs/Day [...] System Physical Exam General ROS Assessment/Plan: Evan Alejandra PT - 08/04/2014 6:16 PM CDT Subjective: Azul [...] 100% Right: 50% Rotation: Left: Right: Side [place]: Left: Right: Strength: sore strength = 4/5, [...] Sheet for this information) Short term and nursing home goals: (See Goal Flow Sheet for this [...] Name Priority Date/Time Associated Diagnosis Comme nts [facility] NEUROMUSCULAR Routine 08/07/2014 12:10 PM Pain in thoracic RE-EDUCATION CDT spine Other orthopedic aftercare(V54.89 ) Scoliosis [facility] THERAPEUTIC EXERCISES Routine 08/07/2014 12:10 PM Pain in thoracic CDT spine Other orthopedic aftercare(V54.89 ) Scoliosis documented in this encounter Visit Diagnoses Diagnosis Pain in thoracic spine - Primary Other orthopedic aftercare(V54.89) Other orthopedic aftercare Scoliosis Scoliosis (and kyphoscoliosis), idiopath ic documented in this encounter Care Teams Political Science Professor Relationship Specialty Start Date End Date Clinic - Angela Laboy PCP - General 07/16/[address] [place] [address] 2019 [place] [address] Bebeto Roth MD Orthopedics 07/09/[address] [facility] [place], [place] [id number] [place] [address] Astrid Rios PA-C Physician Chemical Dependency Nurse Physician Chemical Dependency Nurse - 07/09/14 Surgical documented as of this encounter
--- OUTSIDE RECORDS SUMMARY | 2022-01-07 13:16 | XMS_ITS | Encounter Summary ---
:1980 Author Organization [place] Address [address] [facility] [place] [address] Care Team Providers Name Role Phone Bebeto Roth MD Unavailable Astrid Rios PA-C Unavailable Keri Elias MD Primary Care Provider Unavailable Reason for Visit Reason Comments Care BALA Refill Request Flonase Encounter Details Date Type Department Care Team Description 12/28/2016 Office Visit Narda Mcleod Jada, Vaginal itch ing (Primary Dx); Medicine Clinic Keri Glez MD Environmental allergies; [address] [place] [address] [place] [address] Social History Tobacco Use Types Packs/Day Years Used Date Smoking Tobacco: Never Smokeless Tobacco: Never Alcohol Use Standard Drinks/Week Comments No 0 (1 standard drink = 0.6 oz pure alcoho l) Sex Assigned at Date Recorded Not on file documented as of this encounter Last Filed Vital Signs Vital Sign Reading Time Taken Comments Blood Pressure 117/79 12/28/2016 8:13 AM SPA HOST Pulse 106 12/28/2016 8:13 AM SPA HOST Temperature 36.9 ??C (98.5 ??F) 12/28/2016 8:13 AM SPA HOST Respiratory Rate 20 12/28/2016 8:13 AM SPA HOST Oxygen Saturation 98% 12/28/2016 8:13 AM SPA HOST Inhaled Oxygen Concentration - - Weight 79.2 kg (174 lb 9.6 oz) 12/28/2016 8:13 AM SPA HOST Height - - Body Mass Index 30.93 [...] Refilled - fluticasone (FLONASE) 50 MCG/ACT spray; [place] 1-2 sprays into both nostrils daily Dispense: [...] with the final plan. Keri Elias MD HOST documented in this encounter Plan of Treatment Not on filedocumented as of this encounter Visit Diagnoses Diagnosis Vaginal itching - Primary Pruritus of genital organs Environmental allergies Allergic rhinitis, cause unspecified Frequent UTI Urinary tract infection, site not specif ied documented in this encounter Care Teams Multiple Knife Edge Trimmer Operator Relationship Specialty Start Date End Date Keri Elias PCP - General Family Practice 03/12/15 9 MD Ira Glez, Bebeto Hartman MD Orthopedics 07/09/14 [facility] [place] [address] Astrid Rios PA-C Physician Manager Operations And Procurement Physician Manager Operations And Procurement - 07/09/14 Surgical documented as of this encounter
--- OUTSIDE RECORDS SUMMARY | 2022-01-07 13:16 | XMS_ITS | Encounter Summary ---
:1980 Author Organization [place] Address [address] [facility] [place] [address] Care Team Providers Name Role Phone Bebeto Roth MD Unavailable Astrid Rios PA-C Unavailable Keri Elias MD Primary Care Provider Unavailable Reason for Visit Reason Comments Care ob care Refill Request erika Encounter Details Date Type Department Care Team Description 10/11/2016 Office Visit Melisa Sauceda c are, second trimester (Primary Dx); Medicine Clinic MD Lois Nausea; [address] [place] [address], [address] [place] [address] [address] [facility] [address] [id number] [address] [place], [place] [phone] [id number] Social History Tobacco Use Types Packs/Day Years [...] one month Thank you for coming to [facility] today. Lab Testing: If you had lab testing today and your results are reassuring or normal they will be mailed to you or sent through [employer] within 7 days. If the lab tests need quick action we will call you with the results. The phone number we will call with results is # [phone] (home) . If this is not the best numberplease call our clinic and change the number. Medication Refills: If you need any refills please call your pharmacy and they will contact us. If you need to pecan picker your refill at a new pharmacy, please contact the new pharmacy directly. The new pharmacy will help you get your medications transferred faster. Scheduling: If you have any concerns about today's visit or wish to schedule another appointment please call ouroffice during normal business hours [phone] (8- 5:00 M-F) If a referral was made to a [facility] and you don't get a call from [facility] please call [phone]. If a Mammogram was ordered for you at [facility] call [phone] to schedule or change yourappointment. If you had an XRay/CT/Ultrasound/MRI ordered the number is [phone] to schedule or change your radiology appointment. Medical Concerns: If you have urgent medical concerns please call [phone] at any time of the day. documented [...] . The patient plans to deliver at [facility] with myself and/or OB partner. care at [facility]. - Patient will continue taking vitamins [...] reviewed with the patient and/or guardian. Azul Sapna Solis Smart and/or guardian engaged in the decision making process and verbalized understanding of the options discussed and agreed with the final plan. Melisa Salvador MD PGY3 [facility] Pager: [phone] Steffanie Parker MD - 10/11/2016 3:40 PM CDT Preceptor Attestation: Patient seen and discussed with the resident. Assessment and plan reviewed with resident and agreedupon. Supervising Physician: Steffanie Parker MD [facility] documented in this encounter Plan of Treatment Not on filedocumented as of this encounter Results US OB 14 +WKS SINGLE OR FIRST GESTATION (IN CLINIC) (10/19/2016) Anatomical Region Laterality Modality Abdomen/Pelvis Other Narrative 10/19/2016 2nd/3rd Trimester Ultrasound Report ?? CONCLUSIONS: US findings are consistent with LMP EGA by LMP 20w0d ??VINCENT by LMP :Mar 08, 2 018 EGA by this U/S: [id number] (+/- 7days): ED D by this ??U/S: 03/07/17 ? EFW 345.95g, 0lb 12oz ??Weight Percentil e: 63.9%tile Follow up: Routine follow up as needed. PCP: Keri Elias Physician/Certified Marine Mechanic: Shruthi Ruelas iams Indications: Standard Exam and brittany vey LMP: Patient's last menstrual period was 06/01/2016. ?? FHR: 153 BPM ??Fluid: normal TJ: 10.83 Placenta Location: Posterior and Fundal number:1 ??Presentation: Cephalic Technique: Transabdominal Machine: [employer] Pro 5 SURVEY ? Cerebellum ? Intracranial [...] cm ?? 20wks 3d ?? Shruthi Bland [facility] RVT Attestation of Reviewer. I reviewed the images and agree with eliu singer interpretation above. August Ontiveros MD Steffanie Parker MD IMG US ORDERABLES documented in this encounter Visit Diagnoses Diagnosis care, second trimester - Primar y Nausea Nausea alone Vertigo Dizziness and giddiness care, second trimester documented in this encounter Care Teams Protection Analyst Relationship Specialty Start Date End Date Keri Elias PCP - General Family Practice 03/12/15 9 MD Ira Glez David Wayne, MD Orthopedics 07/09/14 [facility] [place] [address] Astrid Rios PA-C Physician Electroneurodiagnostic Technician Physician Electroneurodiagnostic Technician - 07/09/14 Surgical documented as of this encounter
--- OUTSIDE RECORDS SUMMARY | 2022-01-07 13:16 | XMS_ITS | Encounter Summary ---
:1980 Author Organization [place] Address [address] [place] [address] Care Team Providers Name Role Phone Bebeto Roth MD Unavailable Astrid Rios PA-C Unavailable Keri Elias MD Primary Care Provider Unavailable Reason for Visit Reason Comments Derm Problem Over Rt Eye X 3 weeks Encounter Details Date Type Department Care Team Description 08/05/2015 Office Visit [facility] Family Santa Painter M D Dermatitis (Primary Dx); Medicine Clinic XXX RESIGNED XXX Anxiety; [address], [place], [place] Jovanni c attack; [address] [address] Encounter for medication refill [place], [place] [address] [phone] Social History Tobacco Use Types Packs/Day Years [...] an antihistamine you can buy at drug [employer]. It can make you sleepy, so use [...] on the open blisters ?? Joint pain? [id number] [employer]. [address] [place] [address]. All rights reserved. This information is not intended as a substitute for professional medical care. Always follow your healthcare professional's instructions. documented in this encounter Progress Notes aSnta Painter MD - 08/05/2015 4:34 PM CDT [...] the final plan. Santa Painter MD G2 [facility] Rn Endocrinology Pager [phone] Payton Franks MD - 08/05/2015 4:19 PM CDT Preceptor Attestation: Patient seen and discussed with the resident. Assessment and plan reviewed with resident and agreedupon. Supervising Physician: Payton Franks MD [facility] documented in this encounter Plan of Treatment Not on filedocumented as of this encounter Visit Diagnoses Diagnosis Dermatitis - Primary Contact dermatitis and other eczema, due to unspecified cause Anxiety Anxiety state, unspecified Panic attack Panic disorder without agoraphobia Encounter for medication refill Issue of repeat prescriptions documented in this encounter Care Teams Geospatial Program Management Officer Relationship Specialty Start Date End Date Keri Elias PCP - General Family Practice 03/12/15 9 MD Ira Glez David Wayne, MD Orthopedics 07/09/[address] [place] [address] Astrid Rios PA-C Physician Doctor Of Radiology Physician Doctor Of Radiology - 07/09/14 Surgical documented as of this encounter
--- OUTSIDE RECORDS SUMMARY | 2022-01-07 13:16 | XMS_ITS | Encounter Summary ---
:1980 Author Organization [place] Address [address] [facility] [place] [address] Care Team Providers Name Role Phone Bebeto Roth MD Unavailable Astrid Rios PA-C Unavailable Keri Elias MD Primary Care Provider Unavailable Reason for Visit Reason Onset Date Comments Refill Request 03/17/2016 Encounter Details Date Type Department Care Team Description [facility] Refill Request Clinic Formerly named [facility] [address], [address] [place], [place] [address] Social History Tobacco Use Types [...] .smirefuse and route it to the [facility] ELECTROSTATIC POWDER COATING TECHNICIAN pool to inform the patient and the pharmacy. Clementina Curtis CMA ERS COMPENSATION CLAIMS EXAMINER documented in this encounter Plan of Treatment Not on filedocumented as of this encounter Visit Diagnoses Diagnosis Acne vulgaris - Primary Other acne documented in this encounter Care Teams Senior Ruby Developer Relationship Specialty Start Date End Date Keri Elias PCP - General Family Practice 03/12/15 9 MD Ira Glez David Wayne, MD Orthopedics 07/09/14 [facility] [facility] [address] [place] [address] Astrid Rios PA-C Physician Livestock Judging Coach Physician Livestock Judging Coach - 07/09/14 Surgical documented as of this encounter
--- OUTSIDE RECORDS SUMMARY | 2022-01-07 13:16 | XMS_ITS | Encounter Summary ---
:1980 Author Organization [place] Address [address] [facility] [place] [address] Care Team Providers Name Role Phone Bebeto Roth MD Unavailable Astrid Rios PA-C Unavailable Keri Elias MD Primary Care Provider Unavailable Reason for Visit Reason Comments Care BALA Encounter Details Date Type Department Care Team Description 11/10/2016 Office Visit Narda Family Edison Melisa Supervisio n of [facility] MD Lois risk , [address] [place] [address], [address] [place] [address] [address] [place] [address] [id number] [address] [place], [place] [phone] [address] Social History Tobacco Use Types Packs/Day Years [...] . The patient plans to deliver at [facility] with myself and/or OB partner: ABRAM Cadena. care at [facility]. - Patient will continue taking vitamins and [...] the final plan. Melisa Salvador MD PGY3 [facility] Resident Pager: [phone] Nicole Strickland MD - 11/10/2016 3:40 PM CDT Preceptor Attestation: Patient seen and discussed with the resident. Assessment and plan reviewed with resident and agreedupon. Supervising Physician: Nicole Strickland MD [facility] documented in this encounter Plan of Treatment Not on filedocumented as of this encounter Visit Diagnoses Diagnosis Supervision of high risk , ante documented in this encounter Care Teams Prior Authorization Technician Relationship Specialty Start Date End Date Keri Elias PCP - General Family Practice 03/12/15 9 MD Ira Glez David Wayne, MD Orthopedics 07/09/[address] [place] [address] Astrid Rios PA-C Physician Solderer Dipper Physician Solderer Dipper - 07/09/14 Surgical documented as of this encounter
--- OUTSIDE RECORDS SUMMARY | 2022-01-07 13:16 | XMS_ITS | Encounter Summary ---
:1980 Author Organization [place] Address [facility] [place] [address] Care Team Providers Name Role Phone Bebeto Roth MD Unavailable Astrid Rios PA-C Unavailable Keri Elias MD Primary Care Provider Unavailable Reason for Visit Reason Comments Care BALA Encounter Details Date Type Department Care Team Description 01/10/2017 Office Visit [facility] Family Keri Elias for condition (Primary Dx); Medicine Clinic MD [place] Recurrent UTI [address] [place] [address], [address] [place], [place] [address] Social History Tobacco Use Types Packs/Day Years Used Date Smoking Tobacco: Never Smokeless Tobacco: Never Alcohol Use Standard Drinks/Week Comments No 0 (1 standard drink = 0.6 oz pure alcoho l) Sex Assigned at Date Recorded Not on file documented as of this encounter Last Filed Vital Signs Vital Sign Reading Time Taken Comments Blood Pressure 108/68 01/10/2017 10:06 AM SENIOR COST ACCOUNTANT Pulse 114 01/10/2017 10:06 AM SENIOR COST ACCOUNTANT Temperature 36.7 ??C (98.1 ??F) 01/10/2017 10:06 AM SENIOR COST ACCOUNTANT Respiratory Rate 18 01/10/2017 10:06 AM SENIOR COST ACCOUNTANT Oxygen Saturation 99% 01/10/2017 10:06 AM SENIOR COST ACCOUNTANT Inhaled Oxygen Concentration - - Weight 78.8 kg (173 lb 12.8 oz) 01/10/2017 10:06 AM SENIOR COST ACCOUNTANT Height - - Body Mass Index 30.79 [...] I have performed today. Keri Elias MD OR COST ACCOUNTANT Jeannette Mayer - 01/10/2017 10:00 AM CST Return OB visit 29-34 weeks ?? Subjective: Azul is a 36 year old female at 31w6d with a history of frequent UTIs who returns for care. VINCENT Mar 08, 2017. - Concerns today: Pt complains of some round ligament and low back pain after travelling for [place]. Currently taking amoxicillin, no UTI or yeast [...] MS3, on behalf of Dr. Keri Elias. OR COST ACCOUNTANT documented in this encounter Plan of Treatment Not on filedocumented as of this encounter Procedures Procedure Name Priority Date/Time Associated Diagnosis Comme nts HEMOGLOBIN A1C Routine 01/10/2017 11:51 AM Screening for Resul ts for this SENIOR COST ACCOUNTANT condition procedure are i n the results section. URINE CULTURE Routine 01/10/2017 11:36 AM Recurrent UTI Result s for this SENIOR COST ACCOUNTANT procedure are i n the results section. URINALYSIS(LABDAQ) Routine 01/10/2017 10:19 AM Screening for R esults for this SENIOR COST ACCOUNTANT condition procedure are i n the results section. documented in this encounter Results Hemoglobin A1c (01/10/2017 11:51 AM SENIOR COST ACCOUNTANT) P athologist Signature Hemoglobin A1C 4.6 4.3 - 6.0 01/10/2017 [facility] 4:02 PM SENIOR COST ACCOUNTANT [facility] Specimen Anatomical Collection Method Collection Time Receive d Time (Source) Location / / Volume Laterality Blood specimen 01/10/2017 11:51 7 1:05 (specimen) AM SENIOR COST ACCOUNTANT PM SENIOR COST ACCOUNTANT Keri Elias MD LAB - BLOOD ORDERABLES Performing Organization Address City/[facility] Phon e Number [facility] [address] [place], [place] [id number] [place] [address] Urine Culture Aerobic Bacterial (01/10/2017 11:36 AM SENIOR COST ACCOUNTANT) Component Value Ref Test Analysis Performed At [facility] Range Method Time Signature Specimen Midstream Urine INFECTIOUS Description DISEASE DIAGNOSTIC LABORATORY Special Specimen received 01/10/2017 [facility] in preservative 5:40 PM SENIOR COST ACCOUNTANT [facility] Culture Micro >100,000 colonies/mL 01/11/2017 INFE CTIOUS mixed urogenital teresa 5:40 PM SENIOR COST ACCOUNTANT [facility] DIAGNOSTIC LABORATORY Culture Micro Susceptibility 01/11/2017 INFECTIOUS testing not 5:40 PM SENIOR COST ACCOUNTANT DISEASE routinely done DIAGNOSTIC LABORATORY Specimen (Source) Anatomical Collection Method Collection Time Re ceived Time Location / / Volume Laterality Examination of 01/10/2017 11:36 7 1:04 midstream urine AM SENIOR COST ACCOUNTANT PM SENIOR COST ACCOUNTANT specimen (procedure) Keri Elias MD LAB - MICRO GENERAL ORDERABL ES Performing Organization Address [facility] Phon e Number INFECTIOUS DISEASES [address] [place] [address] DIAGNOSTIC LABORATORY, [facility] INFECTIOUS DISEASE [address] DIAGNOSTIC LABORATORY [address] (ABNORMAL) Urinalysis (UA) ([place]) (01/10/2017 10:19 AM SENIOR COST ACCOUNTANT) [facility] Method Time Signature Specific [place] 1.025 1.005 - [facility] Urine 1.030 [facility] pH Urine 6.5 4.5 - 8.0 [place] [facility] Leukocyte 1+ (A) NEGATIVE [place] Esterase UR [facility] Nitrite Urine Negative NEGATIVE [place] [facility] Protein UR 1+ (A) NEGATIVE [place] [facility] Glucose Urine Negative NEGATIVE [facility] Ketones Urine Trace (A) NEGATIVE [facility] Urobilinogen 0.2 E.U./dL 0.2 E.U./dL [place] mg/dL [facility] LABDAQ Bilirubin UR Negative NEGATIVE [facility] Blood UR 1+ (A) NEGATIVE [facility] Specimen Anatomical Collection Method Collection Time Receive d Time (Source) Location / / Volume Laterality Urine specimen 01/10/2017 10:19 7 (specimen) AM SENIOR COST ACCOUNTANT 10:19 AM SENIOR COST ACCOUNTANT Keri Elias MD LAB - LABDAQ Performing Organization Address City/State/ZIP Code Phon e Number [facility] [address], [place] [address] [facility] documented in this encounter Visit Diagnoses Diagnosis Screening for condition - Primary Screening for unspecified condition Recurrent UTI Urinary tract infection, site not specif ied documented in this encounter Care Teams Automatic Pattern Edger Relationship Specialty Start Date End Date Keri Elias PCP - General Family Practice 03/12/15 9 MD Ira Glez David Wayne, MD Orthopedics 07/09/[address] [place], [place] [address] [place], [place] [id number] Astrid Rios PA-C Physician Aesthetician Physician Aesthetician - 07/09/14 Surgical documented as of this encounter
--- OUTSIDE RECORDS SUMMARY | 2022-01-07 13:16 | XMS_ITS | Encounter Summary ---
:1980 Author Organization [place] Address [address] [place] [address]. [place] [address] Care Team Providers Name Role Phone Meeta Dewittanda Primary Care Provider Reason for Visit Reason Comments Orders Encounter Details Date Type Department Care Team Description 06/04/2014 Orders Only Orthopaedic Clinic Bebeto Roth Scoliosis (Primary Dx); [facility] MD [facility]an [facility] [address] [place] [address] 1st Floor, [address] [place] [phone] Social History Tobacco Use Types Packs/Day Years [...] the cervicothoracic junction lying approximately 6 cm pleating machine operator ior to the lumbosacral junction. Stable mild [...] the cervicothoracic junction lying approximately 6 cm pleating machine operator ior to the lumbosacral junction. Stable mild [...] status documented in this encounter Care Teams Geographic Information System Analyst Relationship Specialty Start Date End Date Lisa Dewitt DO PCP - General 08/12/13 07/15/14 [facility] 2019 [place] [address] documented as of this encounter
--- OUTSIDE RECORDS SUMMARY | 2022-01-07 13:16 | XMS_ITS | Encounter Summary ---
:1980 Author Organization [place] Address [address] [facility] [place] [address] Care Team Providers Name Role Phone Bebeto Roth MD Unavailable Astrid Rios PA-C Unavailable Keri Elias MD Primary Care Provider Unavailable Reason for Visit Reason Onset Date Comments Appointment 10/14/2016 Encounter Details Date Type Department Care Team Description 10/14/2016 Telephone [facility] Jos Elias, Appointment Clinic [facility] [address], [address] [place], [place] [address] Social History Tobacco Use Types Packs/Day Years [...] on filedocumented in this encounter Care Teams [place]dereau Clerk Relationship Specialty Start Date End Date Keri Elias PCP - General Family Practice 03/12/15 9 MD Ira Glez David Wayne, MD Orthopedics 07/09/[address] [place] [address] Astrid Rios PA-C Physician Button Tufting Machine Operator Physician Button Tufting Machine Operator - 07/09/14 Surgical documented as of this encounter
--- OUTSIDE RECORDS SUMMARY | 2022-01-07 13:16 | XMS_ITS | Encounter Summary ---
:1980 Author Organization [place] Address [facility] [place] [address] Care Team Providers Name Role Phone Bebeto Roth MD Unavailable Astrid Rios PA-C Unavailable Keri Elias MD Primary Care Provider Unavailable Encounter Details Date Type Department Care Team Description 07/27/2016 Radiant Appointment Health Imaging Bebeto Roth eled (Error) Center Una Hartman MD [id number] [facility] 1st Floor [address] [place] [address] [id number] Social History Tobacco Use Types Packs/Day Years [...] on filedocumented in this encounter Care Teams Operations Support Analyst Relationship Specialty Start Date End Date Keri Elias PCP - General Family Practice 03/12/15 9 MD Ira Glez David Wayne, MD Orthopedics 07/09/14 [facility] [place] [address] Astrid Rios PA-C Physician Aquatics Director Physician Aquatics Director - 07/09/14 Surgical documented as of this encounter
--- OUTSIDE RECORDS SUMMARY | 2022-01-07 13:17 | XMS_ITS | Encounter Summary ---
:1980 Author Organization [place] Address [facility] [place] [address] Care Team Providers Name Role Phone Lisa Dewitt DO Primary Care Provider Reason for Visit Reason Onset Date Comments Refill Request 12/31/2013 Encounter Details Date Type Department Care Team Description 12/31/2013 Telephone [facility] Lisa Dewitt DO Refill Request Clinic [place] [address], [address] [place] [address] [place], [place] [address] [phone] Social History Tobacco Use Types Packs/Day Years [...] back with any questions. Bunny Patino RN CAMP Telephone Encounter - Hillary Brumfield - 12/31/2013 11:39 AM CST [facility] Family Medicine phone call message- patient requesting a refill: Full Medication Name: minocycline (DYNACIN) 100 MG Capsule Pharmacy confirmed as [facility] [address] [place], [place] - [address] [place] [address] [id number] : Yes Additional Comments: Patient states her insurance does not cover the Tablets, she needs the prescription to read Capsule. OK to leave a message on voice mail? Yes Primary language: Liberian Flute Grinder needed? No Call taken on December 31, 2013 at 11:39 AM by Hillary Brumfield CAMP documented in this encounter Plan of Treatment Not on filedocumented as of this encounter Visit Diagnoses Diagnosis Acne vulgaris Other acne documented in this encounter Care Teams Landscaper Helper Relationship Specialty Start Date End Date Lisa Dewitt DO PCP - General 08/12/13 07/15/14 [facility] [address] [place] [address] documented as of this encounter
--- OUTSIDE RECORDS SUMMARY | 2022-01-07 13:17 | XMS_ITS | Encounter Summary ---
:1980 Author Organization [place] Address [facility], [address] [facility] [place] [address] Care Team Providers Name Role Phone Caitlin Ballesteros MD Primary Care Provider Reason for Visit Reason Comments Contraception Encounter Details Date Type Department Care Team Description 04/03/2012 Office Visit [facility] Caitlin Ballesteros MD Contraception (Primary Dx); Medicine Clinic [facility] Depo-Provera contraceptive s tatus [address], PRACTICE [address] [place] [address] [place] [address] [phone] (Wo rk) Social History Tobacco Use Types [...] Comments Blood Pressure 112/76 04/03/2012 2:40 PM POULTRY HUSBANDMAN Pulse 106 04/03/2012 2:40 PM POULTRY HUSBANDMAN Temperature 36.4 ??C (97.6 ??F) 04/03/2012 2:40 PM POULTRY HUSBANDMAN Respiratory Rate - - Oxygen Saturation 100% 04/03/2012 2:40 PM POULTRY HUSBANDMAN Inhaled Oxygen Concentration - - Weight 71.9 kg (158 lb 9.6 oz) 04/03/2012 2:40 PM POULTRY HUSBANDMAN Height 157.5 cm (5' 2) 04/03/2012 2:40 PM POULTRY HUSBANDMAN Body Mass Index 29.01 04/03/2012 2:40 PM POULTRY HUSBANDMAN documented in this encounter Patient Instructions Patient InstructionsCaitlin Ballesteros MD - 04/03/2012 2:57 PM CST Thank you for coming to [facility]. If you had lab testing today and your results are reassuring or normal they will be be mailed to you within 7 days. If the lab tests need quick action we will call you with the results. The phone number we will call with results is # [phone] (home) . If this is not the best numberplease call our clinic and change the number. If you need any refills please call your pharmacy and they will contact us. If you have any concerns about today's visit or wish to schedule another appointment please call ouroffice during normal business hours [phone] (8- 5:30 M-F) If you have urgent medical concerns please call [phone] at any time of the day. If you have a medical emergency please call 911 Again thank you for choosing [facility] and please let us know how we can best partner with youto improve your and your family's health. TRY HUSBANDMAN documented in this encounter Progress Notes Keri Elias MD - 04/03/2012 3:06 PM CST Preceptor Attestation: Patient's case reviewed and discussed with resident. I agree with written assessment and plan of care Supervising Physician: Keri Elias MD MD [facility] TRY HUSBANDMAN Caitlin Ballesteros MD - 04/03/2012 2:48 PM [...] Diagnosis ??? Adolescent idiopathic scoliosis ??? Health [facility] ??? Acne vulgaris ??? Anxiety ??? Congenital [...] mL into the muscle every 3 months. TRY HUSBANDMAN documented in this encounter Plan of Treatment Not on filedocumented as of this encounter Procedures Procedure Name Priority Date/Time Associated Diagnosis Comme nts HCG QUALITATIVE Routine 04/03/2012 3:04 PM Contraception Resul ts for this URINE (LABDAQ) POULTRY HUSBANDMAN procedure are in the results section. documented in this encounter Results HCG Qualitative Urine (UPT) (Narda) (04/03/2012 3:04 PM POULTRY HUSBANDMAN) P athologist Signature HCG Qual Urine NEGATIVE [facility] Specimen Anatomical Collection Method Collection Time Receive d Time (Source) Location / / Volume Laterality Urine specimen 04/03/2012 3:04 PM 013 3:04 (specimen) POULTRY HUSBANDMAN PM POULTRY HUSBANDMAN Caitlin Ballesteros MD LAB - LABDAQ Performing Organization Address City/State/ZIP Code Phon e Number [facility] [address] [place] [phone] LABDAQ [facility] [address] [place] [address] documented in this encounter Visit Diagnoses Diagnosis Contraception - Primary Unspecified contraceptive management Depo-Provera contraceptive status Surveillance of other previously prescri bed contraceptive method documented in this encounter Care Teams Radiation Control Worker Relationship Specialty Start Date End Date Caitlin Ballesteros MD PCP - General 10/08/11 08/11/13 documented as of this encounter
--- OUTSIDE RECORDS SUMMARY | 2022-01-07 13:17 | XMS_ITS | Encounter Summary ---
:1980 Author Organization [place] Address [address] [facility] [place] [address] Care Team Providers Name Role Phone Caitlin Ballesteros MD Primary Care Provider Reason for Visit Reason Onset Date Comments Other 07/10/2013 Encounter Details Date Type Department Care Team Description 07/10/2013 Telephone [facility] Jennifer Ballesteros MD Other Clinic [place] [address], [facility] PRACT [address] [place], [place] [address] [place] [address] [phone] (Wo rk) Social History Tobacco Use Types [...] Valarie Haji - 07/10/2013 3:30 PM CDT [facility] Family Medicine phone call message- general phone call: Reason for call: Patient needs to know her blood type as they are doing a blood drive at her place of employment. Return call needed: Yes OK to leave a message on voice mail? Yes Primary language: Grenadian Stock Crane Operator needed? No Call taken on July 10, 2013 at 3:30 PM by Valarie Haji documented in this encounter Plan of Treatment Not on filedocumented as of this encounter Visit Diagnoses Not on filedocumented in this encounter Care Teams Case Preparer And Liner Relationship Specialty Start Date End Date Caitlin Ballesteros MD PCP - General 10/08/11 08/11/13 documented as of this encounter
--- OUTSIDE RECORDS SUMMARY | 2022-01-07 13:17 | XMS_ITS | Encounter Summary ---
:1980 Author Organization [place] Address [facility] [place] [address] Care Team Providers Name Role Phone Caitlin Ballesteros MD Primary Care Provider Reason for Referral Specialty Diagnoses / Procedures Referred By Contact Refer red To Contact Kenton Hicks MD [place] [phone] Referral ID Status Reason Start Date Expiration Date Visits Requ ested Visits Authorized Reason for Visit Reason Comments Mass behind ear and knee for abou t a week Encounter Details Date Type Department Care Team Description 11/13/2012 Office Visit [facility] management (Primary Dx); Medicine Clinic MD Kenton Acne vulgaris; [address] [place] [address] Environmental allergies; [address] [facility] Skin nodule; [place], [place] Skin tag [phone] Social History Tobacco Use Types Packs/Day Years [...] Procedure clinic with on 11/22/12 @ 1:00p.m TERING SUPERVISOR documented in this encounter Progress Notes Kenton [...] MICRO IF (LABDAQ) Component Value Range Specific Ages [place] Urine 1.010 1.005 - 1.030 pH Urine [...] Crystal Urine None Bacteria Wet Prep Moderate [facility] Procedure Note Azul Sapna Garg [...] - fluticasone (FLONASE) 50 MCG/ACT nasal spray; [place] 1-2 sprays into both nostrils daily Skin [...] skin documented in this encounter Care Teams Paleobotanist Relationship Specialty Start Date End Date Caitlin Ballesteros MD PCP - General 10/08/11 08/11/13 documented as of this encounter
--- OUTSIDE RECORDS SUMMARY | 2022-01-07 13:17 | XMS_ITS | Encounter Summary ---
:1980 Author Organization [place] Address [address] [facility] [place] [address] Care Team Providers Name Role Phone aCitlin Ballesteros MD Primary Care Provider Reason for Visit Reason Comments Torticollis seen 1 week ago for neck sti ffness, given meds, not getting any better Encounter Details Date Type Department Care Team Description 03/07/2013 Emergency [facility] Rona Perez, initial Emergency Department MD Nan encounter (Primary Dx) [address] [place] [phone] Social History Tobacco Use Types Packs/Day [...] Comments Blood Pressure 126/84 03/07/2013 11:50 AM STRATEGIES ANALYST Pulse 88 03/07/2013 11:50 AM STRATEGIES ANALYST Temperature 36.5 ??C (97.7 ??F) 03/07/2013 10:49 AM STRATEGIES ANALYST Respiratory Rate 16 03/07/2013 11:50 AM STRATEGIES ANALYST Oxygen Saturation 98% 03/07/2013 10:49 AM STRATEGIES ANALYST Inhaled Oxygen Concentration - - Weight - - Height - - Body Mass Index - - documented in this encounter Discharge Instructions AttachmentsThe following attachments cannot be sent through Care Everywhere.NECK SPASM, NO TRAUMA (TRISTANIAN)documented in this encounter Medications at Time of [...] needed for muscle spasms fluticasone (FLONASE) 50 [place] 1-2 sprays 1 Package 11 11/1308/28/2013 MCG/ACT [...] from the original note were not included. [facility] 16 on March 07, 2013 at [...] and Surgical History, and Social History inthe Skimbl system. PAST MEDICAL HISTORY: Past Medical History [...] spasms FLUTICASONE (FLONASE) 50 MCG/ACT NASAL SPRAY [place] 1-2 sprays into both nostrils daily IBUPROFEN [...] diaphoretic. ED Course Procedures Patient assessed in [facility] 16 on March 07, 2013 at [...] IApril, am serving as a trained medical coordinator pesticide use to document services personally performedby Nan Perez MD, based on the provider's statements to me. Inan, was physically present and have reviewed and verified the accuracy of this notedocumented by April Porter, medical coordinator pesticide use. 03/07/2013 [facility] EMERGENCY DEPARTMENT Nan Perez MD 03/07/13 1140 TEGIES ANALYST documented in this encounter Plan of Treatment Not on filedocumented as of this encounter Visit Diagnoses Diagnosis Cervical strain, initial encounter - Emerald cotter documented in this encounter Care Teams Conductor Orchestra Relationship Specialty Start Date End Date Caitlin Ballesteros MD PCP - General 10/08/11 08/11/13 documented as of this encounter
--- OUTSIDE RECORDS SUMMARY | 2022-01-07 13:17 | XMS_ITS | Encounter Summary ---
:1982 Author Organization [place] Address [facility] [place] [address] Care Team Providers Name Role Phone Lisa Dewitt DO Primary Care Provider Reason for Referral [facility] - Closed Specialty Diagnoses / Procedures Referred By Contact Refer red To Contact Diagnoses Scoliosis Acquired postural kyphosis Astrid Rios PA-C [facility] [address] [place] [address] Referral ID Status Reason Start Date Expiration Date Visits Requ ested Visits Authorized [id number] Closed 01/29/2014 07/28/2014 1 1 ORATE DIRECTOR OF PHARMACY Reason for Visit Reason Comments Back Pain Scoliosis. Feeling screws an d clicking Encounter Details Date Type Department Care Team Description 01/29/2014 Office Visit Orthopaedic Clinic Astrid Rios, Scoliosis (Primary Dx); [facility] MELISA Acquired postural kyphosis [facility] 1st Floor, [address] [place] [address] [place] [address], [phone] [place] [id number] Social History Tobacco Use Types Packs/Day Years [...] (151 lb 12.8 oz) 01/29/2014 8:18 AM CORPORATE DIRECTOR OF PHARMACY Height 160 cm (5' 3) 01/29/2014 8:18 AM CORPORATE DIRECTOR OF PHARMACY Body Mass Index 26.89 01/29/2014 8:18 AM CORPORATE DIRECTOR OF PHARMACY documented in this encounter Progress Notes Astrid [...] midline in the middle of her spine. [place] it one time yesterday, no recurrence. Also [...] DE OLIVEIRA Copy to patient AGUSTINA TELLEZ [address] [place] [phone] ORATE DIRECTOR OF PHARMACY documented in this encounter Nursing Notes John [...] daily fluticasone (FLONASE) 50 MCG/ACT nasal spray [place] 1-2 sprays into both nostrils daily loratadine-pseudoePHEDrine [...] Reactions ??? Seasonal Allergies Mago Lopez CMA ORATE DIRECTOR OF PHARMACY documented in this encounter Plan of Treatment Scheduled Referrals Name Type Priority Associated Diagnoses Order S chedule PHYSICAL THERAPY Referral Routine Scoliosis Ordered: 01/29/2014 REFERRAL (Internal) Acquired postural kyphosis documented as of this encounter Visit Diagnoses Diagnosis Scoliosis - Primary Scoliosis (and kyphoscoliosis), idiopath ic Acquired postural kyphosis Kyphosis (acquired) (postural) documented in this encounter Care Teams Black Top Roller Relationship Specialty Start Date End Date Lisa Dewitt DO PCP - General 08/12/13 07/15/14 [facility] 2019 [place] [address] documented as of this encounter
--- OUTSIDE RECORDS SUMMARY | 2022-01-07 13:17 | XMS_ITS | Encounter Summary ---
:1980 Author Organization [place] Address [address] [facility] [place] [address] Care Team Providers Name Role Phone Caitlin Ballesteros MD Primary Care Provider Lisa Dewitt DO Primary Care Provider Reason for Visit Reason Onset Date Comments Referral 01/04/2013 Mental Health Referr al Encounter Details Date Type Department Care Team Description 01/04/2013 Telephone [facility] Caitlin Ballesteros MD Referral (Mental Medicine Clinic [facility] Referral) [address] [place] [address], PRACTICE [address] [facility] [place], [place] [address] [place] [address] (Wo rk) Social History Tobacco [...] - 01/04/2013 10:39 AM CST Referral noted US AGENT Telephone Encounter - Collin Gabriel - 01/04/2013 10:12 AM CST [facility] Family Medicine phone call message- order or referral request for patient: Order or referral being requested: Mental Health Referral Order Details: Patient states she received a phone call regarding the mental health referral for counseling. She states she would like the [facility] to [facility] for [facility] because of their hours. If referral, has the patient been seen for this problem? N/A Additional Comments: OK to leave a message on voice mail? Yes Primary language: Chilean Light Technician needed? No Call taken on January 04, 2013 at 10:12 AM by Collin Gabriel US AGENT documented in this encounter Plan of Treatment Not on filedocumented as of this encounter Visit Diagnoses Not on filedocumented in this encounter Care Teams Insulator Apprentice Relationship Specialty Start Date End Date Caitlin Ballesteros MD PCP - General 10/08/11 08/11/13 Lisa Dewitt DO PCP - General 08/12/13 07/15/14 [place] [address] [place] [address] documented as of this encounter
--- OUTSIDE RECORDS SUMMARY | 2022-01-07 13:17 | XMS_ITS | Encounter Summary ---
:1980 Author Organization [place] Address [facility] [place] [address] Care Team Providers Name Role Phone Lisa Dewitt DO Primary Care Provider Encounter Details Date Type Department Care Team Description 08/14/2013 Orders Only [facility] Lisa Dewitt Contracep tion (Primary Medicine Clinic DO Dx) [address] [place] [address] [address] [place] [address] [place], [place] [phone] Social History Tobacco Use Types Packs/Day Years [...] management documented in this encounter Care Teams Records Coordinator Relationship Specialty Start Date End Date Lisa Dewitt DO PCP - General 08/12/13 07/15/14 [facility] [address] [place] [id number] documented as of this encounter
--- OUTSIDE RECORDS SUMMARY | 2022-01-07 13:17 | XMS_ITS | Encounter Summary ---
:1980 Author Organization [place] Address [address] [facility] [place] [address] Care Team Providers Name Role Phone Marshalucy Lisa Primary Care Provider Encounter Details Date Type Department Care Team Description 01/29/2014 Radiant Appointment [facility] Astrid Rios, Scoliosis CYNDI [facility] 1ST FLOOR, CLINIC [address] [place] [phone] Social History Tobacco Use Types Packs/Day Years [...] Resu lts for this SCOLIOSIS 2 VIEWS HEDGE FUND TRADER procedure are in the results section. documented in this encounter Results XR Spine Complete 2 vw (01/29/2014 8:26 AM HEDGE FUND TRADER) Anatomical Region Laterality Modality Spine Computed Radiography Specimen (Source) Anatomical Location Collection Method / Collectio n Time Received Time / Laterality Volume Impressions 01/29/2014 8:54 AM HEDGE FUND TRADER IMPRESSION: 1. Redemonstration of mild dextroscolios is in the lower thoracic spine, with intact instrumentation follo wing posterior instrumented fusion from T10-L3. BABS MONTES MD Narrative 01/29/2014 8:54 AM HEDGE FUND TRADER EXAMINATION: Spine 2 views DATE: 01/29/2014 HISTORY: [...] T10-L3. BABS MONTES MD Astrid Rios PA-C [facility] ORDER TAYLOR documented in this encounter Visit Diagnoses Diagnosis Scoliosis Scoliosis (and kyphoscoliosis), idiopath ic documented in this encounter Care Teams Dispatch Machine Runner Relationship Specialty Start Date End Date Lisa Dewitt DO PCP - General 08/12/13 07/15/14 [facility] 2019 [place] [address] documented as of this encounter
--- OUTSIDE RECORDS SUMMARY | 2022-01-07 13:17 | XMS_ITS | Encounter Summary ---
:1980 Author Organization [place] Address [facility] [place] [address] Care Team Providers Name Role Phone Lisa Dewitt DO Primary Care Provider Reason for Visit Reason Onset Date Comments Other 01/28/2014 scoliosis FU Encounter Details Date Type Department Care Team Description 01/28/2014 Telephone Orthopaedic Clinic Bebeto Roth (scoliosis FU) [facility] MD [facility] [address] [place] [address] Floor, [address] [facility] [address] [phone] [phone] Social History Tobacco Use Types Packs/Day Years [...] will see Astrid snyder tomorrow for eval. URES EDITOR documented in this encounter Plan of Treatment Not on filedocumented as of this encounter Visit Diagnoses Not on filedocumented in this encounter Care Teams Control Area Operator Relationship Specialty Start Date End Date Lisa Dewitt DO PCP - General 08/12/13 07/15/14 [facility] 2019 [place] [address] documented as of this encounter
--- OUTSIDE RECORDS SUMMARY | 2022-01-07 13:17 | XMS_ITS | Encounter Summary ---
:1980 Author Organization [place] Address [address] [place] [address] Care Team Providers Name Role Phone Caitlin Ballesteros MD Primary Care Provider Reason for Visit Reason Comments Neck Pain patient could not move neck to the left after waking up today. History of TMJ. Encounter Details Date Type Department Care Team Description 02/28/2013 Office Visit [place] Caitlin Ballesteros MD Neck muscle spasm Medicine Clinic [facility] (Primary Dx) [address], PRACTICE [address] [place] [address] [place] [address] [phone] (Wo rk) Social History Tobacco Use Types [...] Comments Blood Pressure 122/81 02/28/2013 3:00 PM RELIGIOUS HEALER Pulse 94 02/28/2013 3:00 PM RELIGIOUS HEALER Temperature 36.8 ??C (98.2 ??F) 02/28/2013 3:00 PM RELIGIOUS HEALER Respiratory Rate - - Oxygen Saturation 100% 02/28/2013 3:00 PM RELIGIOUS HEALER Inhaled Oxygen Concentration - - Weight 70.3 kg (155 lb) 02/28/2013 3:00 PM RELIGIOUS HEALER Height 158.8 cm (5' 2.5) 02/28/2013 3:00 PM RELIGIOUS HEALER Body Mass Index 27.9 02/28/2013 3:00 PM RELIGIOUS HEALER documented in this encounter Patient Instructions Patient InstructionsCaitlin Ballesteros MD - 02/28/2013 3:33 PM CST Thank you for coming to [facility]. If you had lab testing today and your results are reassuring or normal they will be be mailed to you or sent to your MyChart and you will be notified by email within 7 days. If the lab tests need quick action we will call you with the results. The phone number we will call with results is # [phone] (home) (home) . If this is not the best number please call our clinic and change the number. If any referrals were ordered today you should be getting a call in the next week. If you don't hear about this within a week please call one of the following numbers If your referral is for P please call [phone] If your referral is to outside [facility] please call the clinic number ([phone]) and ask for your team care management assistant. If you need any refills please call your pharmacy and they will contact us. If you have any concerns about today's visit or wish to schedule another appointment please call ouroffice during normal business hours [phone] (8- 5:00 M-F) If you have urgent medical concerns please call [phone] at any time of the day. If you have a medical emergency please call [phone] Again thank you for choosing [facility] and please let us know how we can best partner with youto improve your and your family's health. GIOUS HEALER documented in this encounter Progress Notes Joseph Pittman MD - 02/28/2013 5:28 PM CST Preceptor Attestation: Patient seen and discussed with the resident. Assessment and plan reviewed with resident and agreedupon. Supervising Physician: Joseph Pittman MD [facility] Medicine GIOUS HEALER Caitlin Ballesteros MD - 02/28/2013 3:15 PM [...] ??? fluticasone (FLONASE) 50 MCG/ACT nasal spray [place] 1-2 sprays into both nostrils daily ??? [...] with the final plan. Caitlin Ballesteros MD. GIOUS HEALER documented in this encounter Plan of Treatment Not on filedocumented as of this encounter Visit Diagnoses Diagnosis Neck muscle spasm - Primary Spasm of muscle documented in this encounter Care Teams Coat Agent Relationship Specialty Start Date End Date Caitlin Ballesteros MD PCP - General 10/08/11 08/11/13 documented as of this encounter
--- OUTSIDE RECORDS SUMMARY | 2022-01-07 13:17 | XMS_ITS | Encounter Summary ---
:1980 Author Organization [place] Address formerly [facility] [place] [address] Care Team Providers Name Role Phone Caitlin Ballesteros MD Primary Care Provider Reason for Visit Reason Comments Medication Problem contraception Encounter Details Date Type Department Care Team Description 01/14/2013 Office Visit [facility] Josiah Johnson, Lora ption (Primary Dx); Medicine Clinic MD [facility] [address] [place] [address] [address] [place], [place] [address] 2019 [place] [address] Social History Tobacco Use Types [...] Comments Blood Pressure 116/80 01/14/2013 3:59 PM WORKDAY SENIOR ASSOCIATE Pulse 95 01/14/2013 3:59 PM WORKDAY SENIOR ASSOCIATE Temperature 36.4 ??C (97.5 ??F) 01/14/2013 3:59 PM WORKDAY SENIOR ASSOCIATE Respiratory Rate - - Oxygen Saturation 98% 01/14/2013 3:59 PM WORKDAY SENIOR ASSOCIATE Inhaled Oxygen Concentration - - Weight 72.1 kg (159 lb) 01/14/2013 3:59 PM WORKDAY SENIOR ASSOCIATE Height 160 cm (5' 3) 01/14/2013 3:59 PM WORKDAY SENIOR ASSOCIATE Body Mass Index 28.17 01/14/2013 3:59 PM WORKDAY SENIOR ASSOCIATE documented in this encounter Progress Notes Keri Elias MD - 01/14/2013 4:35 PM CST Preceptor Attestation: Patient's case reviewed and discussed with resident and I examined the patient. I agree with writtenassessment and plan of care Supervising Physician: Keri Elias MD [facility] DAY SENIOR ASSOCIATE Josiah Johnson MD - 01/14/2013 4:23 PM [...] Diagnosis ??? Adolescent idiopathic scoliosis ??? Health Intermediate ??? Acne vulgaris ??? Anxiety ??? Congenital [...] fluticasone (FLONASE) 50 MCG/ACT nasal spray Active [place] 1-2 sprays into both nostrils daily ??? [...] with the final plan. Josiah Johnson MD DAY SENIOR ASSOCIATE documented in this encounter Plan of Treatment Not on filedocumented as of this encounter Visit Diagnoses Diagnosis Contraception - Primary Unspecified contraceptive management Metrorrhagia documented in this encounter Care Teams Mechanical Facilities Technician Relationship Specialty Start Date End Date Caitlin Balletseros MD PCP - General 10/08/11 08/11/13 documented as of this encounter
--- OUTSIDE RECORDS SUMMARY | 2022-01-07 13:17 | XMS_ITS | Encounter Summary ---
:1980 Author Organization [place] Address [address] [place] [address] Care Team Providers Name Role Phone Caitlin Ballesteros MD Primary Care Provider Encounter Details Date Type Department Care Team Description 07/02/2013 Orders Only Ear, Nose and Throat Gael Deshpande MD Dizziness (Primary Dx); Clinic ENT CLINIC AND Ear pressure, right 8th Floor, Clinic [address] [facility] [address] [address] [facility] [address] [place], [place] (Work) [address] [phone] Social History Tobacco Use Types Packs/Day Years [...] right documented in this encounter Care Teams Signing Agent Relationship Specialty Start Date End Date Caitlin Ballesteros MD PCP - General 10/08/11 08/11/13 documented as of this encounter
--- OUTSIDE RECORDS SUMMARY | 2022-01-07 13:17 | XMS_ITS | Encounter Summary ---
:1980 Author Organization [place] Address [address] [facility] [place] [address] Care Team Providers Name Role Phone Lisa Dewitt DO Primary Care Provider Reason for Visit Reason Onset Date Comments *-*INCOMING RECORDS*-* 01/28/2014 Encounter Details Date Type Department Care Team Description 01/28/2014 PRE VISIT Orthopaedic Clinic Astrid Rios, *-*INCOMING RECORDS*-* [facility] PA-C [facility] 1st Floor, [address] OR[address] [place] [address], [address] [id number] [id number] Social History Tobacco Use Types Packs/Day Years [...] Dr. Roth patient; records and imaging in [facility] R PRODUCTS PRINTER documented in this encounter Plan of Treatment Not on filedocumented as of this encounter Visit Diagnoses Not on filedocumented in this encounter Care Teams Injection Molding Machine Operator Relationship Specialty Start Date End Date Lisa Dewitt DO PCP - General 08/12/13 07/15/14 [facility] 2019 [place] [address] documented as of this encounter
--- OUTSIDE RECORDS SUMMARY | 2022-01-07 13:17 | XMS_ITS | Encounter Summary ---
:1980 Author Organization [place] Address [address] [place] [address]. [place] [address] Care Team Providers Name Role Phone Caitlin Ballesteros MD Primary Care Provider Reason for Visit Reason Comments Exposure to STD Encounter Details Date Type Department Care Team Description 12/16/2012 Emergency [facility] Roxanne Grider MD Vaginal yeast infection (Primary Dx); Emergency Department [address] [place] [address] Possible exposure to STD [address] [place] [phone] (Wo rk) Social History Tobacco Use Types [...] Comments Blood Pressure 126/83 12/16/2012 6:29 PM TODDLER LEAD TEACHER Pulse 123 12/16/2012 6:29 PM TODDLER LEAD TEACHER Temperature 36.4 ??C (97.5 ??F) 12/16/2012 6:29 PM TODDLER LEAD TEACHER Respiratory Rate 16 12/16/2012 6:29 PM TODDLER LEAD TEACHER Oxygen Saturation 98% 12/16/2012 6:29 PM TODDLER LEAD TEACHER Inhaled Oxygen Concentration - - Weight - - Height - - Body Mass Index - - documented in this encounter Discharge Instructions Discharge InstructionsRoxanne Grider MD - 12/16/2012 7:42 PM CST Please make an appointment to follow up with Your Primary Care Provider and home office representative--[facility] (phone: ) in 3-7 days even if entirely better. Use Diflucan for yeast infection Use Acyclovir as directed for herpes infection You or Your doctor will need to followup on your herpes virus blood test. LER LEAD TEACHER AttachmentsThe following attachments cannot be sent through Care Everywhere. VAGINITIS, ISAI (MAORI)documented in this encounter Medications at Time of [...] along with other ointment. fluticasone (FLONASE) 50 [place] 1-2 sprays 1 Package 11 11/1308/28/2013 MCG/ACT nasal into both nostrils sprayIndications: daily Environmental allergies fluticasone (FLONASE) 50 [place] 2 sprays into 0 01/01/2013 MCG/ACT nasal [...] Caitlin Ballesteros MD - 12/21/2012 4:47 PM TODDLER LEAD TEACHER Quick Note: Received the result note. Result [...] needs to make an appointment forfurther discussion. LER LEAD TEACHER documented in this encounter ED Notes Chuyita Gaston RN - 12/16/2012 7:48 PM CST Pt refused vitals LER LEAD TEACHER Roxanne Grider MD - 12/16/2012 6:35 PM [...] and Surgical History, and Social History inthe [facility] system. Review of Systems Constitutional: Negative for [...] ED Course Procedures Critical Care time: none [facility] Diagnoses: None 6:40PM Patient seen and evaluated [...] NEG Ketones Urine Negative NEG mg/dL Specific Mcdonald Urine 1.023 1.003 - 1.035 Blood Urine [...] to follow up with her PMD or clothing sorter physician next week for culture results and further evaluation and treatment. Addendum: The patient is very concerned about being exposed to herpes. She would prefer that blood testing be done, as her ex-boyfriend will not to talk to her. I spoke with laboratory and will order herpes simplex IgG and IgM with reflux. The patient can follow this result with her PMD or clothing sorter physician next week. I have reviewed the [...] INadya, am serving as a trained medical affairs leader to document services personally performed by Dr. Cheo MD, based on the provider's statements to me. This document has been checked and approved by the attending provider. December 16, 2012 12/16/2012 [facility], EMERGENCY DEPARTMENT Roxanne Grider MD 12/16/121956 LER LEAD TEACHER documented in this encounter Plan of Treatment Not on filedocumented as of this encounter Procedures Procedure Name Priority Date/Time Associated Comments Diagnosis HSV 1 AND 2 ANTIBODY Routine 12/16/2012 7:44 PM R esults for this IGG TODDLER LEAD TEACHER procedure are i n the results section. HSV 1 AND 2 IGG IGM STAT 12/16/2012 7:44 PM Re sults for this WITH REFLEX TODDLER LEAD TEACHER procedure are i n the results section. HCG QUALITATIVE URINE STAT 12/16/2012 6:58 PM Results for this POCT TODDLER LEAD TEACHER procedure are i n the results section. WET PREPARATION STAT 12/16/2012 6:48 PM Result s for this TODDLER LEAD TEACHER procedure are i n the results section. URINE MACROSCOPIC STAT 12/16/2012 6:48 PM Resu lts for this WITH REFLEX TO MICRO TODDLER LEAD TEACHER procedu re are in the results section. NEISSERIA GONORRHOEAE STAT 12/16/2012 6:48 PM Results for this PCR TODDLER LEAD TEACHER procedure are i n the results section. CHLAMYDIA TRACHOMATIS STAT 12/16/2012 6:48 PM Results for this PCR TODDLER LEAD TEACHER procedure are i n the results section. documented in this encounter Results HSV 1 and 2 antibody IgG (12/16/2012 7:44 PM TODDLER LEAD TEACHER) athologist Signature HSV 1 IgG PALOMA 24.90 [...] Volume Laterality 12/16/2012 7:44 PM 3 7:47 TODDLER LEAD TEACHER PM TODDLER LEAD TEACHER Roxanne Grider MD LAB - BLOOD ORDERABLES Performing Organization Address City/State/ZIP Code Phon e Number [facility] [address] [place] [address] [place] [facility] MICROBIOLOGY HSV 1 and 2 IgG IgM with reflex (12/16/2012 7:44 PM TODDLER LEAD TEACHER) athologist Signature HSV IgG 5.27 Index [facility] Antibody Value MICROBIOLOGY W/Reflex Comment: Positive Herpes Simplex Virus IgM Antibody 0.43 Index Value [facility] MICROBIOLOGY Comment: No detectable antibody. Specimen Anatomical Collection Method Collection Time Receive d Time (Source) Location / / Volume Laterality Blood specimen 12/16/2012 7:44 PM 013 7:47 (specimen) TODDLER LEAD TEACHER PM TODDLER LEAD TEACHER Roxanne Grider MD LAB - BLOOD ORDERABLES Performing Organization Address City/State/ZIP Code Phon e Number [facility] [address] [place], [place] [id number] [place] [address] [facility] MICROBIOLOGY hCG qual urine POCT (12/16/2012 6:58 PM TODDLER LEAD TEACHER) P athologist Signature HCG Qual Urine negative neg Internal QC OK Yes Specimen (Source) Anatomical Collection Method Collection Time Re ceived Time Location / / Volume Laterality Urine specimen 12/16/2012 6:58 PM (specimen) TODDLER LEAD TEACHER Roxanne Grider MD LAB - ENTER/EDIT POCT (ABNORMAL) UA reflex to microscopic (12/16/2012 6:48 PM TODDLER LEAD TEACHER) [facility] Method Time Signature Color Urine Yellow [facility] Appearance Urine Slightly [facility] Cloudy [facility] Glucose Urine Negative NEG mg/dL [facility] Bilirubin Urine Negative NEG [facility] Ketones Urine Negative NEG mg/dL [facility] Specific Mcdonald 1.023 1.003 - [facility] Urine 1.035 [facility] Blood Urine Small (A) NEG [facility] pH Urine 5.5 5.0 - 7.0 [facility] pH [facility] Protein Albumin 10 (A) NEG mg/dL [facility] Urine [facility] Urobilinogen Normal 0.0 - 2.0 [facility] mg/dL mg/dL [facility] Nitrite Urine Negative NEG [facility] Leukocyte Moderate (A) NEG [facility] Esterase Urine [facility] Source Midstream [facility] Urine [facility] RBC Urine 5 (H) 0 - 2 [facility] /HPF [facility] WBC Urine 9 (H) 0 - 2 [facility] /HPF [facility] Bacteria Urine Few (A) NEG /HPF [facility] [place] [facility] Squamous 4 (H) 0 - 1 [facility] Epithelial /HPF /HPF [facility] Urine LAB Mucous Urine Present (A) NEG /LPF [facility] Specimen Anatomical Collection Method Collection Time Receive d Time (Source) Location / / Volume Laterality Urine specimen URINE SPECIMEN 12/16/2012 6:48 PM 12/16 7:01 (specimen) OBTAINED BY CLEAN TODDLER LEAD TEACHER PM TODDLER LEAD TEACHER CATCH PROCEDURE / Unknown Roxanne Grider MD LAB - URINE ORDERABLES Performing Organization Address City/State/ZIP Code Phon e Number [facility] [address] [place] [address] [facility] LAB Chlamydia trachomatis PCR (12/16/2012 6:48 PM TODDLER LEAD TEACHER) Component Value Ref Test Analysis Performed At [facility] Method Orchid Signature Specimen [facility] Description LAB Chlamydia Negative for C. trachomatis rRNA by machine design engineer mediated amplification. [facility] Trachomatis A negative result by transc ription mediated amplification does not preclude the MICROBIOLOGY PCR presence of C. trachomatis infection because results are dependent on proper and adequate collection, absence of inhibitors, and suffici ent rRNA to be detected. Specimen Anatomical Collection Method Collection Time Receive d Time (Source) Location / / Volume Laterality Urine specimen 12/16/2012 6:48 PM 013 6:59 (specimen) TODDLER LEAD TEACHER PM TODDLER LEAD TEACHER Roxanne Grider MD LAB - MICRO GENERAL ORDERABL ES Performing Organization Address City/State/ZIP Code Phon e Number [facility] [address] [place] [address] [facility] MICRO[facility]OLOGY Neisseria gonorrhoeae PCR (12/16/2012 6:48 PM TODDLER LEAD TEACHER) Component Value Ref Test Analysis Performed At [facility] Method [facility] Specimen [facility] Descrip LAB N Gonorrhea Negative for N. gonorrhoeae rRNA by machine design engineer mediated amplification. [facility] PCR A negative result by transc ription mediated amplification does not preclude the MICROBIOLOGY presence of N. gonorrhoeae infection because re sults are dependent on proper and adequate collection, absence of inhibitors, and suffici ent rRNA to be detected. Specimen Anatomical Collection Method Collection Time Receive d Time (Source) Location / / Volume Laterality Urine specimen 12/16/2012 6:48 PM 013 6:59 (specimen) TODDLER LEAD TEACHER PM TODDLER LEAD TEACHER Roxanne Grider MD LAB - MICRO GENERAL ORDERABL ES Performing Organization Address City/State/ZIP Code Phon e Number [facility] [address] [place] [address] [facility] LAB [facility] MICROBIOLOGY Wet prep (12/16/2012 6:48 PM TODDLER LEAD TEACHER) Patholo gist Method Time Signature Specimen [facility] Description [facility] Wet Prep Many PMNs seen [facility] No clue cells seen [facility] No Trichomonas seen LAB No yeast seen Micro Report FINAL [facility] Status 12/16/2012 [facility] Specimen Anatomical Collection Method Collection Time Receive d Time (Source) Location / / Volume Laterality Specimen from 12/16/2012 6:48 PM 12/17/19 13 6:56 vagina TODDLER LEAD TEACHER PM TODDLER LEAD TEACHER (specimen) Roxanne Grider MD LAB - MICRO GENERAL ORDERABL ES Performing Organization Address City/State/ZIP Code Phon e Number [facility] [address] [place], [place] [id number] [place] [address] [facility] documented in this encounter Visit Diagnoses Diagnosis Vaginal yeast infection - Primary Candidiasis of vulva and vagina Possible exposure to STD Other specified personal history present ing hazards to health documented in this encounter Care Teams Vice President Talent Management Relationship Specialty Start Date End Date Caitlin Ballesteros MD PCP - General 10/08/11 08/11/13 documented as of this encounter
--- OUTSIDE RECORDS SUMMARY | 2022-01-07 13:17 | XMS_ITS | Encounter Summary ---
:1980 Author Organization [place] Address [address] [facility] [place] [address] Care Team Providers Name Role Phone Caitlin Ballesteros MD Primary Care Provider Encounter Details Date Type Department Care Team Description 01/08/2013 Telephone [facility] Syd Alvarez MD Clinic [address] [place] [address], [address] [place], [place] [address] Social History Tobacco Use Types [...] disorder documented in this encounter Care Teams Selling Specialist Relationship Specialty Start Date End Date Caitlin Ballesteros MD PCP - General 10/08/11 08/11/13 documented as of this encounter
--- OUTSIDE RECORDS SUMMARY | 2022-01-07 13:17 | XMS_ITS | Encounter Summary ---
:1980 Author Organization [place] Address [address] [facility] [address] Care Team Providers Name Role Phone Renate Lisa Primary Care Provider Reason for Visit Reason Comments Orders Encounter Details Date Type Department Care Team Description 01/28/2014 Orders Only Orthopaedic Clinic Astrid Rios, Damon (Primary [facility] PA-C Dx) [facility] 1st Floor, [address] [place] [address], [address] [place] [id number] Social History Tobacco Use Types Packs/Day Years [...] Spine Complete 2 vw (01/29/2014 8:26 AM YOUTH PASTOR) Anatomical Region Laterality Modality Spine Computed Radiography Specimen (Source) Anatomical Location Collection Method / Collectio n Time Received Time / Laterality Volume Impressions 01/29/2014 8:54 AM YOUTH PASTOR IMPRESSION: 1. Redemonstration of mild dextroscolios is in the lower thoracic spine, with intact instrumentation follo wing posterior instrumented fusion from T10-L3. BABS MONTES MD Narrative 01/29/2014 8:54 AM YOUTH PASTOR EXAMINATION: Spine 2 views DATE: 01/29/2014 HISTORY: [...] ic documented in this encounter Care Teams Medical Attendant Relationship Specialty Start Date End Date Lisa Dewitt DO PCP - General 08/12/13 07/15/14 [facility] [address] [place] [address] documented as of this encounter
--- OUTSIDE RECORDS SUMMARY | 2022-01-07 13:17 | XMS_ITS | Encounter Summary ---
:1980 Author Organization [place] Address [address] [facility] [place] [address] Care Team Providers Name Role Phone Lisa Dewitt DO Primary Care Provider Reason for Visit Reason Onset Date Comments Refill Request 09/17/2013 Encounter Details Date Type Department Care Team Description 09/17/2013 Refill [facility] Medicine Lisa Dewitt DO Refill Request Clinic [place] [address] [place] [address], [address] [place] [id number] [place] [address] [phone] Social History Tobacco Use Types Packs/Day Years [...] acne documented in this encounter Care Teams Cloth Printing Back Tender Relationship Specialty Start Date End Date Lisa Dewitt DO PCP - General 08/12/13 07/15/14 [facility] [address] [place] [address] documented as of this encounter
--- OUTSIDE RECORDS SUMMARY | 2022-01-07 13:17 | XMS_ITS | Encounter Summary ---
:1980 Author Organization [place] Address [address] [facility] [place] [address] Care Team Providers Name Role Phone Caitlin Ballesteros MD Primary Care Provider Reason for Visit Reason Comments Consult Ear issues and Dizziness Encounter Details Date Type Department Care Team Description 07/02/2013 Office Visit Ear, Nose and Throat Gael Deshpande MD Nasal congestion (Primary Dx); Clinic ENT CLINIC AND Dysfunction of eustachian tu be, bilateral 8th Floor, Clinic [address] [facility] [address] [address] [facility] [phone] [place], [place] (Work) [address] [phone] Social History Tobacco Use Types Packs/Day Years [...] the clinic sooner with questions or concerns: [phone]. documented in this encounter Progress Notes Michael Deshpande MD - 07/02/2013 2:01 PM CDT Dear Caitlin Alexandra: I had the pleasure of meeting Azul Garg in consultation today at the [facility] Otol[facility]ology [facility] at your request. [...] intake form (for the remainder of the [facility]) which I reviewedand signed. Past Medical History [...] l documented in this encounter Care Teams Testing Specialist Relationship Specialty Start Date End Date Caitlin Ballesteros MD PCP - General 10/08/11 08/11/13 documented as of this encounter
--- OUTSIDE RECORDS SUMMARY | 2022-01-07 13:17 | XMS_ITS | Encounter Summary ---
:1980 Author Organization [place] Address [address] [facility] [address] Care Team Providers Name Role Phone Caitlin Ballesteros MD Primary Care Provider Reason for Visit Reason Onset Date Comments Pre Visit Planning - Done 06/26/2013 Encounter Details Date Type Department Care Team Description 06/26/2013 PRE VISIT Ear, Nose and Throat Gael Deshpande MD Pre Visit Planning - Clinic ENT CLINIC AND Done 8th Floor, Clinic 8A HEARING [facility] [address] [address] [facility] [place] [address] Social History Tobacco Use Types [...] have you been seen for this condition? [facility] Where and what testing has been done including: None ENT related surgeries in the past: No After the phone call: Request medical records: No From where: What date: Who did you speak to: Is the information already in the EMR? Yes Inform pt in case of any questions call Fabi at [phone]. documented in this encounter Plan of Treatment Not on filedocumented as of this encounter Visit Diagnoses Not on filedocumented in this encounter Care Teams Planogrammer Relationship Specialty Start Date End Date Caitlin Ballesteros MD PCP - General 10/08/11 08/11/13 documented as of this encounter
--- OUTSIDE RECORDS SUMMARY | 2022-01-07 13:17 | XMS_ITS | Encounter Summary ---
:1980 Author Organization [place] Address [address] [place] [address] Care Team Providers Name Role Phone Lisa Dewitt DO Primary Care Provider Reason for Visit Reason Onset Date Comments Refill Request 11/11/2013 Encounter Details Date Type Department Care Team Description 11/11/2013 Refill [facility] Lisa Dewitt DO Refill Request [place] [address], [address] [place] [address] [place], [place] [address] [phone] Social History Tobacco Use Types Packs/Day Years [...] acne documented in this encounter Care Teams Rock Wool Insulator Relationship Specialty Start Date End Date Lisa Dewitt DO PCP - General 08/12/13 07/15/[address] [place] [address] documented as of this encounter
--- OUTSIDE RECORDS SUMMARY | 2022-01-07 13:17 | XMS_ITS | Encounter Summary ---
:1982 Author Organization [place] Address [facility] [place] [address] Care Team Providers Name Role Phone Caitlin Ballesteros MD Primary Care Provider Reason for Referral - Closed Specialty Diagnoses / Procedures Referred By Contact Refer red To Contact Diagnoses Anxiety Panic attack Del Alvarez MD [address] [place] [address] Referral ID Status Reason Start Date Expiration Date Visits Requ ested Visits Authorized [id number] Closed 01/04/2013 07/03/2013 1 1 E ADMINISTRATION ANALYST Reason for Visit Reason Comments Recheck Medication Hydroxyzine Encounter Details Date Type Department Care Team Description 01/01/2013 Office Visit [facility] Sonja Alvarez (Emerald cotter Dx); Medicine Clinic MD Del Panic attack [address], [address] [place], [place] [address] Social History Tobacco Use Types [...] Comments Blood Pressure 116/77 01/01/2013 4:04 PM LEASE ADMINISTRATION ANALYST Pulse 100 01/01/2013 4:04 PM LEASE ADMINISTRATION ANALYST Temperature 36.6 ??C (97.9 ??F) 01/01/2013 4:04 PM LEASE ADMINISTRATION ANALYST Respiratory Rate - - Oxygen Saturation 99% 01/01/2013 4:04 PM LEASE ADMINISTRATION ANALYST Inhaled Oxygen Concentration - - Weight 72.1 kg (159 lb) 01/01/2013 4:04 PM LEASE ADMINISTRATION ANALYST Height 156.7 cm (5' 1.7) 01/01/2013 4:04 PM LEASE ADMINISTRATION ANALYST Body Mass Index 29.36 01/01/2013 4:04 PM LEASE ADMINISTRATION ANALYST documented in this encounter Patient Instructions Patient InstructionsDel Spencer MD - 01/01/2013 4:46 PM LEASE ADMINISTRATION ANALYST [facility]: [phone] [facility] [place] [address] Patient to call to make appt Patients PCP needs to be changed From [facility] E ADMINISTRATION ANALYST documented in this encounter Progress Notes Figueroa Swain MD - 01/01/2013 4:35 PM CST Preceptor Attestation: Patient's case reviewed and discussed with resident and I examined the patient. I agree with writtenassessment and plan of care Supervising Physician: Figueroa Swain MD MD [facility] E ADMINISTRATION ANALYST Del Spencer MD - 01/01/2013 4:23 PM [...] Diagnosis ??? Adolescent idiopathic scoliosis ??? Health [facility] ??? Acne vulgaris ??? Anxiety ??? Congenital [...] fluticasone (FLONASE) 50 MCG/ACT nasal spray Active [place] 1-2 sprays into both nostrils daily ??? [...] final plan. Del Alvarez. Gagan Aquino's Page: [phone] E ADMINISTRATION ANALYST documented in this encounter Plan of Treatment Scheduled Referrals Name Type Priority Associated Diagnoses Order S [facility] MENTAL HEALTH REFERRAL Referral Routine Anxiety Ordered: 01/04/2013 Panic attack documented as of this encounter Visit Diagnoses Diagnosis Anxiety - Primary Anxiety state, unspecified Panic attack Panic disorder without agoraphobia documented in this encounter Care Teams Tower Cleaner Relationship Specialty Start Date End Date Caitlin Ballesteros MD PCP - General 10/08/11 08/11/13 documented as of this encounter
--- OUTSIDE RECORDS SUMMARY | 2022-01-07 13:17 | XMS_ITS | Encounter Summary ---
:1980 Author Organization [place] Address [address] [facility] [place] [address] Care Team Providers Name Role Phone Caitlin Ballesteros MD Primary Care Provider Reason for Visit Reason Comments Diarrhea since Monday/ per pt- happ en after workout Syncope during working out Chills Encounter Details Date Type Department Care Team Description 04/04/2013 Office Visit [facility] Caitlin Ballesteros MD Contraception (Primary Medicine Clinic [facility]) [address], PRACTICE [address] [place] [address] [place] [address] [phone] (Wo rk) Social History Tobacco Use Types [...] Comments Blood Pressure 117/79 04/04/2013 1:37 PM CUTTER DOWN Pulse 93 04/04/2013 1:37 PM CUTTER DOWN Temperature 36.4 ??C (97.6 ??F) 04/04/2013 1:37 PM CUTTER DOWN Respiratory Rate - - Oxygen Saturation 100% 04/04/2013 1:37 PM CUTTER DOWN Inhaled Oxygen Concentration - - Weight 70.1 kg (154 lb 9.6 oz) 04/04/2013 1:37 PM CUTTER DOWN Height 158.8 cm (5' 2.5) 04/04/2013 1:37 PM CUTTER DOWN Body Mass Index 27.83 04/04/2013 1:37 PM CUTTER DOWN documented in this encounter Progress Notes Caitlin [...] Diagnosis ??? Adolescent idiopathic scoliosis ??? Health [facility] ??? Acne vulgaris ??? Anxiety ??? [...] ??? fluticasone (FLONASE) 50 MCG/ACT nasal spray [place] 1-2 sprays into both nostrils daily ??? [...] I have performed today. Caitlin Ballesteros MD. ER DOWN Joseph Pittman MD - 04/04/2013 4:35 PM CST Preceptor Attestation: Patient seen and discussed with the resident. Assessment and plan reviewed with resident and agreedupon. Supervising Physician: Joseph Pittman MD [facility] ER DOWN documented in this encounter Plan of Treatment Not on filedocumented as of this encounter Visit Diagnoses Diagnosis Contraception - Primary Unspecified contraceptive management documented in this encounter Care Teams Analytical Lab Analyst Relationship Specialty Start Date End Date Caitlin Ballesteros MD PCP - General 10/08/11 08/11/13 documented as of this encounter
--- OUTSIDE RECORDS SUMMARY | 2022-01-07 13:17 | XMS_ITS | Encounter Summary ---
:1980 Author Organization [place] Address Pending sale to [facility] [place] [address] Care Team Providers Name Role Phone Caitlin Ballesteros MD Primary Care Provider Reason for Visit Reason Onset Date Comments Refill Request 10/30/2012 Encounter Details Date Type Department Care Team Description 10/30/2012 Refill [facility] Jennifer Ballesteros MD Refill Request Clinic [address] [facility] [place], [place] [address] 7 [place] [address] [phone] (Wo rk) Social History Tobacco Use Types Packs/Day Years Used Date Smoking Tobacco: Passive Smoke Exposure - Never Smoker Alcohol Use Standard Drinks/Week Comments No 0 (1 standard drink = 0.6 oz pure alcoho l) Sex Assigned at Date Recorded Not on file documented as of this encounter Miscellaneous Notes Telephone Encounter - Sharad Duque CMA - 10/30/2012 1:11 PM CDT [facility] phone call message- patient requesting a refill: Full Medication Name: minocycline Dose: 100MG tablets Pharmacy confirmed as [facility] [id number] [place] [address] [id number] : Yes Additional Comments: The patient said the pharmacy faxed the refill request Monday in the PM. I let her know I will send high priority message to the nurse to fill today and the pharmacy will call whenit is ready to pickle cutter. Thanks! OK to leave a message on voice mail? Yes Primary language: Brazilian Knowledge Management Advisor needed? No Call taken on October 30, 2012 at 1:11 PM by SHARAD DUQUE documented in this encounter Plan of Treatment Not on filedocumented as of this encounter Visit Diagnoses Diagnosis Acne vulgaris - Primary Other acne documented in this encounter Care Teams Manager It Security Relationship Specialty Start Date End Date Caitlin Ballesteros MD PCP - General 10/08/11 08/11/13 documented as of this encounter
--- OUTSIDE RECORDS SUMMARY | 2022-01-07 13:17 | XMS_ITS | Encounter Summary ---
:1980 Author Organization [place] Address [facility] [place] [address] Care Team Providers Name Role Phone Caitlin Ballesteros MD Primary Care Provider Reason for Visit Reason Onset Date Comments Results 12/24/2012 Encounter Details Date Type Department Care Team Description 12/24/2012 Telephone [facility] Jennifer Ballesteros MD Results Clinic [place] [address], [facility] PRACT [address] [place], [place] [address] [address] [place] [address] [phone] (Wo rk) Social History Tobacco Use Types Packs/Day Years Used Date Smoking Tobacco: Passive Smoke Exposure - Never Smoker Smokeless Tobacco: Never Alcohol Use Standard Drinks/Week Comments No 0 (1 standard drink = 0.6 oz pure alcoho l) Sex Assigned at Date Recorded Not on file documented as of this encounter Miscellaneous Notes Telephone Encounter - Madison Nobles LPN - 12/25/2012 11:09 AM FRUIT SORTER Patient seen in clinic 12-24-12. Madison Nobles LPN T SORTER Telephone Encounter - Terrie Link - 12/24/2012 7:58 AM CST [facility] Family Medicine [...] message on voice mail? Yes Primary language: [place] Citizen Bounty Trapper needed? No Call taken on December 24, 2012 at 7:58 AM by Terrie Link T SORTER documented in this encounter Plan of Treatment Not on filedocumented as of this encounter Visit Diagnoses Not on filedocumented in this encounter Care Teams Dcs Engineer Relationship Specialty Start Date End Date Caitlin Ballesteros MD PCP - General 10/08/11 08/11/13 documented as of this encounter
--- OUTSIDE RECORDS SUMMARY | 2022-01-07 13:17 | XMS_ITS | Encounter Summary ---
:1980 Author Organization [place] Address [facility]0 [facility] [place] [address] Care Team Providers Name Role Phone Caitlin Ballesteros MD Primary Care Provider Reason for Visit Reason Comments Minor Procedure [place] has mole/skintag on t he left shoulder and left outer knee Encounter Details Date Type Department Care Team Description 11/22/2012 Office Visit [facility] Jada, Dermatofibro [facility] Medicine Clinic Anthony Glez MD thigh (Primary Dx) [address], [address] [place], [place] [address] Social History Tobacco Use Types [...] hear from us, please call us at [phone] and let us know that you haven't received your results. Thank you for coming to [facility]. Lab Testing: If you had lab testing today and your results are reassuring or normal they will be mailed to you or sent through [employer] within 7 days. If the lab tests need quick action we will call you with the results. The phone number we will call with results is # [phone] (home) . If this is not the best numberplease call our clinic and change the number. Medication Refills: If you need any refills please call your pharmacy and they will contact us. If you need to package pick up your refill at a new pharmacy, please contact the new pharmacy directly. The new pharmacy will help you get your medications transferred faster. Scheduling: If you have any concerns about today's visit or wish to schedule another appointment please call ouroffice during normal business hours [phone] (8- 5:00 M-F) Medical Concerns: If you have urgent medical concerns please call [phone] at any time of the day. If you have a medical emergency please call 911. Again thank you for choosing [facility] and please let us know [...] of care Supervising Physician: Anthony Elias MD [facility] Caitlin Ballesteros MD - 11/22/2012 1:46 PM CDT [facility] Skin Biopsy Procedure Note Azul Garg [...] Component Value Ref Test Analysis Performed At [facility] gist Range Method Time Signature Copath Report Patient Name: AZUL MCCLELLAN MR#: [id number] Specimen #: [id number] Collected: 11/22/2012 Received: 11/23/2012 Reported: 11/26/2012 13:48 [...] MD/ MICROSCOPIC: Microscopic evaluation is performed. Ajith cAevedo MD/romulo 11/26/12 TESTING LAB LOCATION: [facility] [address] [address] COLLECTION SITE: Client: [facility] Location: FA (B) Specimen (Source) Anatomical Collection Method Collection Time Re ceived Time Location / / Volume Laterality Lower limb 11/22/2012 1:30 11/23/2012 8 :36 structure (body PM CDT AM CDT structure) Anthony Elias MD [facility] Organization Address City/State/ZIP Code Phon e Number [place] documented in this encounter Visit Diagnoses Diagnosis Dermatofibroma of left thigh - Primary Benign neoplasm of skin of lower limb, i ncluding hip documented in this encounter Care Teams Control Technician Relationship Specialty Start Date End Date Caitlin Ballesteros MD PCP - General 10/08/11 08/11/13 documented as of this encounter
--- OUTSIDE RECORDS SUMMARY | 2022-01-07 13:17 | XMS_ITS | Encounter Summary ---
:1980 Author Organization [place] Address [facility] [place] [address] Care Team Providers Name Role Phone Lisa Dewitt DO Primary Care Provider Reason for Visit Reason Onset Date Comments Medication Question 01/21/2014 Encounter Details Date Type Department Care Team Description 01/21/2014 Telephone [facility] Lisa Dewitt DO Medication Question Clinic [address] [address] [phone] (Wo rk) Social History Tobacco Use Types [...] per protocol. Patient notified. Bunny Patino RN ITE OPERATOR Telephone Encounter - Hillary Brumfield - 01/21/2014 9:46 AM CST [facility] phone call message- medication clarification/question: [...] each of her children. Pharmacy confirmed as [facility] [address] [place], [place] - [address] AT [address]: Yes OK to leave a message on voice mail? Yes Primary language: Gambian Business Account Manager needed? No Call taken on January 21, 2014 at 9:47 AM by Hillary Brumfield ITE OPERATOR documented in this encounter Plan of Treatment Not on filedocumented as of this encounter Visit Diagnoses Diagnosis Head lice Pediculus capitis (head louse) documented in this encounter Care Teams Medical Consultant Relationship Specialty Start Date End Date Lisa Dewitt DO PCP - General 08/12/13 07/15/14 [facility] 2019 [place] [address] documented as of this encounter
--- OUTSIDE RECORDS SUMMARY | 2022-01-07 13:17 | XMS_ITS | Encounter Summary ---
:1980 Author Organization [place] Address [address] [place] [address] Care Team Providers Name Role Phone Renate Lisa Primary Care Provider Reason for Visit Reason Onset Date Comments Refill Request 08/12/2013 Encounter Details Date Type Department Care Team Description 08/12/2013 Telephone [facility] Medicine Jennifer Ballesteros MD Refill Request Clinic [address], PRACTICE [address] [place], [place] [address] [place] [address] [phone] (Wo rk) Social History Tobacco Use Types [...] unspecified documented in this encounter Care Teams Pressure Vessel Inspector Relationship Specialty Start Date End Date Lisa Dewitt DO PCP - General 08/12/13 07/15/14 [facility] 2019 [place] [address] documented as of this encounter
--- OUTSIDE RECORDS SUMMARY | 2022-01-07 13:17 | XMS_ITS | Encounter Summary ---
:1980 Author Organization [place] Address [address] [facility] [place] [address] Care Team Providers Name Role Phone Lisa Dewitt DO Primary Care Provider Encounter Details Date Type Department Care Team Description 09/17/2013 Orders Only [facility] Medicine Lisa Dewitt DO Acne vulgaris Clinic [facility] [address] [place] [address] [place] [address] [place], [place] [address] [phone] Social History Tobacco Use Types Packs/Day Years [...] acne documented in this encounter Care Teams Bookmobile Clerk Relationship Specialty Start Date End Date Lisa Dewitt DO PCP - General 08/12/13 07/15/14 [facility] [address] [place] [address] documented as of this encounter
--- OUTSIDE RECORDS SUMMARY | 2022-01-07 13:17 | XMS_ITS | Encounter Summary ---
:1980 Author Organization [place] Address [address] [facility] [place] [address] Care Team Providers Name Role Phone Caitlin Ballesteros MD Primary Care Provider Reason for Visit Reason Onset Date Comments Head Lice 08/05/2013 Two youngest childre n have lice Encounter Details Date Type Department Care Team Description 08/05/2013 Telephone [facility] Caitlin Ballesteros MD Head Lice ([facility] Medicine Clinic [facility] youngest children have [address], PRACTICE lice ) [address] [facility] [place], [place] [address] [place] [address] (Wo rk) Social History Tobacco [...] CDT Message forward to Dr Alvarez and Namibian message sent. Madison Nobles LPN Informed mom [...] louse) documented in this encounter Care Teams Leasing Associate Relationship Specialty Start Date End Date Caitlin Ballesteros MD PCP - General 10/08/11 08/11/13 documented as of this encounter
--- OUTSIDE RECORDS SUMMARY | 2022-01-07 13:17 | XMS_ITS | Encounter Summary ---
:1980 Author Organization [place] Address [address] [facility] [place] [address] Care Team Providers Name Role Phone Caitlin Ballesteros MD Primary Care Provider Reason for Visit Reason Comments Pain Bladder frequency, urgency, pain x1 week; took Uristat once per day Encounter Details Date Type Department Care Team Description 06/21/2012 Office Visit [facility] Caitlin Ballesteros MD UTI (urinary tract Medicine Clinic [facility] infection) (Primary [address], PRACTICE Dx) [address] [facility] [place] [address] [phone] (Wo rk) Social History Tobacco Use Types [...] PM CDT Thank you for coming to [facility]. Lab Testing: If you had lab testing today and your results are reassuring or normal they will be mailed to you or sent through [employer] within 7 days. If the lab tests need quick action we will call you with the results. The phone number we will call with results is # [phone] (home) . If this is not the best numberplease call our clinic and change the number. Medication Refills: If you need any refills please call your pharmacy and they will contact us. If you need to cigar packer and picker your refill at a new pharmacy, please contact the new pharmacy directly. The new pharmacy will help you get your medications transferred faster. Scheduling: If you have any concerns about today's visit or wish to schedule another appointment please call ouroffice during normal business hours [phone] (8- 5:00 M-F) Medical Concerns: If you have urgent medical concerns please call [phone] at any time of the day. If you have a medical emergency please call 911. Again thank you for choosing [facility] and please let us know how we can best partner with you to improve you and your family's health. documented in this encounter Progress Notes Jazz Duncan MD - 06/21/2012 2:35 PM CDT Preceptor Attestation: Patient's case reviewed and discussed with resident. I agree with written assessment and plan of care Supervising Physician: Jazz Duncan MD MD [facility] Caitlin Ballesteros MD - 06/21/2012 2:17 [...] ??? fluticasone (FLONASE) 50 MCG/ACT nasal spray [place] 2 sprays into both nostrils daily. ??? loratadine (CLARITIN) 10 MG tablet Take 1 tablet by mouth daily as needed. Allergies Allergen Reactions ??? Seasonal Allergies Results for orders placed in visit on 06/21/12 (from the past 24 hour(s)) URINALYSIS, MICRO IF (LABDAQ) Component Value Range Specific [place] Urine 1.010 1.005 - 1.030 pH Urine [...] in this encounter Results Urine Microscopic (UA) ([facility]) (06/21/2012 2:16 PM CDT) Analysis Performed At Patho logist Time Signature WBC Urine 5-10 /hpf [facility] RBC Urine None /hpf [facility] Epithelial 2-5 /lpf [facility] Cells UR CLINIC LAB Mucous Urine None [facility] Casts Urine None /lpf [facility] Crystal Urine None /lpf [facility] Bacteria Wet Moderate [facility] Prep CLINIC LAB Specimen Anatomical Collection Method Collection Time Receive d Time (Source) Location / / Volume Laterality Urine specimen 06/21/2012 2:16 PM 013 2:16 (specimen) CDT PM CDT Jazz Duncan MD LAB - LABDAQ Performing Organization Address City/State/ZIP Code Phon e Number [facility] [address] [place] [address] [phone] LABDAQ [facility] [address] [place] [id number] Urine culture (06/21/2012 2:08 PM CDT) Component Value Ref Test Analysis Performed At Patholo gist Range Method Time Signature Specimen Midstream Urine [facility] Special Specimen received [facility] Requests in preservative MICROBIOLOGY Culture Micro [...] e Number [facility] [address] [place] [address] [facility] FUM MICROBIOLOGY (ABNORMAL) Urinalysis, Micro If (UA) ([facility]) (06/21/2012 2:08 PM CDT) [facility] Method Time Signature Specific Valentine 1.010 1.005 [facility] 1.030 [facility] LAB pH Urine 6.5 4.5 - 8.0 [facility] Leukocyte 500/ul 2+ [facility] Esterase UR (A) CLINIC LAB Nitrite Urine neg [facility] Protein UR neg [facility] CLINIC LAB Glucose Urine norm [facility] CLINIC LAB Ketones Urine neg [facility] Urobilinogen norm [facility] mg/dL CLINIC LAB Bilirubin UR neg [facility] Blood UR neg [facility] Specimen Anatomical Collection Method Collection Time Receive d Time (Source) Location / / Volume Laterality Urine specimen 06/21/2012 2:08 PM 013 2:08 (specimen) CDT PM CDT Caitlin Ballesteros MD LAB - LABDAQ Performing Organization Address City/State/ZIP Code Phon e Number [facility] [address] [place] [phone] LABDAQ [facility] [address] [place] [address] documented in this encounter Visit Diagnoses Diagnosis UTI (urinary tract infection) - Primary Urinary tract infection, site not specif ied documented in this encounter Care Teams Compensation And Benefits Manager Relationship Specialty Start Date End Date Caitlin Ballesteros MD PCP - General 10/08/11 08/11/13 documented as of this encounter
--- OUTSIDE RECORDS SUMMARY | 2022-01-07 13:17 | XMS_ITS | Encounter Summary ---
:1980 Author Organization [place] Address [address] [facility] [place] [address] Care Team Providers Name Role Phone Caitlin Ballesteros MD Primary Care Provider Encounter Details Date Type Department Care Team Description 07/02/2013 Office Visit [facility] Michael Deshpande MD [facility] [address] [facility] [address] [phone] Audiology Zahira Hernandez AuD [address] [place], [place] [address] 6 [facility] [address]th Floor cl inic 8B [facility] [place], [place] [phone] Social History Tobacco Use [...] results. RECOMMENDATIONS: Follow-up with ENT. Tommy Salcedo Victorian Literature Professor [place] #[id number] documented in this encounter Plan of [...] on filedocumented in this encounter Care Teams Skate Hop Relationship Specialty Start Date End Date Caitlin Ballesteros MD PCP - General 10/08/11 08/11/13 documented as of this encounter
--- OUTSIDE RECORDS SUMMARY | 2022-01-07 13:17 | XMS_ITS | Encounter Summary ---
:1980 Author Organization [place] Address [facility] [place] [address] Care Team Providers Name Role Phone Caitlin Ballesteros MD Primary Care Provider Reason for Visit Reason Comments Results follow up Encounter Details Date Type Department Care Team Description 12/24/2012 Office Visit [facility] Josiah Johnson Anxiety (Primary Dx) Medicine Clinic [address] 5140 7 2019 [place] [address] Social History Tobacco Use Types [...] Comments Blood Pressure 128/85 12/24/2012 1:33 PM ENVIRONMENTAL LAWYER Pulse 107 12/24/2012 1:33 PM ENVIRONMENTAL LAWYER Temperature 36.8 ??C (98.2 ??F) 12/24/2012 1:33 PM ENVIRONMENTAL LAWYER Respiratory Rate - - Oxygen Saturation 100% 12/24/2012 1:33 PM ENVIRONMENTAL LAWYER Inhaled Oxygen Concentration - - Weight 72.9 kg (160 lb 12.8 oz) 12/24/2012 1:33 PM ENVIRONMENTAL LAWYER Height 160.8 cm (5' 3.3) 12/24/2012 1:33 PM ENVIRONMENTAL LAWYER Body Mass Index 28.22 12/24/2012 1:33 PM ENVIRONMENTAL LAWYER documented in this encounter Patient Instructions Patient InstructionsQuJosiah soto, MD - 12/24/2012 1:59 PM CST Thank you for coming to [facility]. Lab Testing: If you had lab testing today and your results are reassuring or normal they will be mailed to you or sent through makr within 7 days. If the lab tests need quick action we will call you with the results. The phone number we will call with results is # [phone] (home) . If this is not the best numberplease call our clinic and change the number. Medication Refills: If you need any refills please call your pharmacy and they will contact us. If you need to fern picker your refill at a new pharmacy, please contact the new pharmacy directly. The new pharmacy will help you get your medications transferred faster. Scheduling: If you have any concerns about today's visit or wish to schedule another appointment please call ouroffice during normal business hours [phone] (8- 5:00 M-F) Medical Concerns: If you have urgent medical concerns please call [phone] at any time of the day. If you have a medical emergency please call 911. Again thank you for choosing [facility] and please let us know how we can best partner with you to improve you and your family's health. RONMENTAL LAWYER documented in this encounter Progress Notes Josiah [...] Pt was very anxious about her testing. [place] anxiety and shakiness in her class. Denies [...] fluticasone (FLONASE) 50 MCG/ACT nasal spray Active [place] 1-2 sprays into both nostrils daily ??? benzoyl peroxide 5 % gel Active Use over the areas everyday 1-2 times/daily. Please use it alongwith other ointment. ??? fluticasone (FLONASE) 50 MCG/ACT nasal spray Active [place] 2 sprays into both nostrils daily. Allergies [...] Final Value:Negative for N. gonorrhoeae rRNA by compound specialist mediated amplification. A negative result by compound specialist mediated amplification does not preclude the presence of N. gonorrhoeae infection because results are dependent on proper and adequate collection, absence of inhibitors, and sufficient rRNA to be detected. ??? Specimen Description 12/16/2012 Cervix Final ??? Chlamydia Trachomatis PCR 12/16/2012 Final Value:Negative for C. trachomatis rRNA by compound specialist mediated amplification. A negative result by compound specialist mediated amplification does not preclude the [...] 12/16/2012 Negative NEG mg/dL Final ??? Specific [place] Urine 12/16/2012 1.023 1.003 - 1.035 Final [...] anxiety seems situational, not starting her on residential treatment like SSRI. 2. Herpes Type 1 [...] with the final plan. Josiah Johnson MD RONMENTAL LAWYER Jazz Duncan MD - 12/24/2012 1:41 PM CST Preceptor Attestation: Patient's case reviewed and discussed with resident and I examined the patient. I agree with writtenassessment and plan of care Supervising Physician: Jazz Duncan MD MD [facility] Medicine RONMENTAL LAWYER documented in this encounter Plan of Treatment Not on filedocumented as of this encounter Visit Diagnoses Diagnosis Anxiety - Primary Anxiety state, unspecified documented in this encounter Care Teams Registered Radiation Therapist Relationship Specialty Start Date End Date Caitlin Ballesteros MD PCP - General 10/08/11 08/11/13 documented as of this encounter
--- OUTSIDE RECORDS SUMMARY | 2022-01-07 13:18 | XMS_ITS | Encounter Summary ---
:1980 Author Organization [place] Address [address] [place] [address] Care Team Providers Name Role Phone Andreas Patel MD Primary Care Provider Caitlin Ballesteros MD Primary Care Provider Lisa Dewitt DO Primary Care Provider Bebeto Roth MD Unavailable Astrid Rios PA-C Unavailable [facility] Primary Care Provider + Keri Elias MD Primary Care Provider Unavailable Francisco Metz MD Primary Care Provider [phone] Francisco Metz MD Unavailable [phone] Kenton Katz MD Unavailable Unavailable Encounter Details Date Type Department Care Team Description 08/04/2011 PRE VISIT UR ANESTHESIA Susana Quinteros MD [address] [facility], [address] [place], [place] [address] [place], [place] [phone] (Wo rk) Social History Tobacco Use Types Packs/Day Years Used Date Smoking Tobacco: Never Assessed Sex Assigned at Date Recorded Not on file COVID-19 Exposure Response Date Recorded In the last month, have you been in contact Unable to assess 01/23/2020 7:04 AM REBEAMER with someone who was confirmed or suspected to have Coronavirus / COVID-19? documented as of this encounter Plan of Treatment Not on filedocumented as of this encounter Visit Diagnoses Not on filedocumented in this encounter Care Teams Sales Record Clerk Relationship Specialty Start Date End Date Andreas Patel MD PCP - General 10/05/11 10/07/11 [facility] [address] [place] [phone] Caitlin Ballesteros MD PCP - General 10/08/11 08/11/13 Lisa Dewitt DO PCP - General 08/12/13 07/15/14 [facility] [address] [place] [phone] Clinic - Angela Laboy PCP - General 07/16/14 6 [facility] [address] [place] [address] Keri Elias PCP - General Family Practice 03/12/15 9 MD Isaías Glez Mitchell PCP - General Family Practice 11/14/18 04/02/20 MD Stevie Bebeto Roth MD Orthopedics 07/09/[address] [place] [id number] Astrid Rios PA-C Physician Brick Handler Physician Brick Handler - 07/09/14 Surgical Francisco Metz Assigned PCP 07/04/19 02/01/20 MD Ste[place] [address] [place] [address] Kenton Katz Assigned PCP 02/02/20 08/27/20 MD Feliberto NO INFO AVAILABLE documented as of this encounter
--- OUTSIDE RECORDS SUMMARY | 2022-01-07 13:18 | XMS_ITS | Encounter Summary ---
:1980 Author Organization [place] Address [address] [facility] [place] [address] Care Team Providers Name Role Phone Unavailable Primary Care Provider Unavailable Encounter Details Date Type Department Care Team Description 08/04/2011 Historic Results [facility] Leanne Navarro Alden MD Андрей [address] [place] [address] [place] [address] Social History Tobacco Use Types Packs/Day Years [...] 1 Hr (LabDAQ) (08/04/2011 12:00 PM CDT) [facility] gist Method Time Signature Glu Gest [...]
--- OUTSIDE RECORDS SUMMARY | 2022-01-07 13:18 | XMS_ITS | Encounter Summary ---
:1980 Author Organization [place] Address [address] [facility] [place] [address] Care Team Providers Name Role Phone Unavailable Primary Care Provider Unavailable Encounter Details Date Type Department Care Team Description 08/11/2011 Historic Results [facility] Leanne Navarro [place] MD Андрей [address] [place] [address] [place] [address] Social History Tobacco Use Types Packs/Day Years [...]
--- OUTSIDE RECORDS SUMMARY | 2022-01-07 13:18 | XMS_ITS | Encounter Summary ---
:1980 Author Organization [place] Address [facility] [place] [address] Care Team Providers Name Role Phone Caitlin Ballesteros MD Primary Care Provider Reason for Referral Specialty Diagnoses / Procedures Referred By Contact Refer red To Contact Caitlin Ballesteros MD [address] [place], [place] [address] Referral ID Status Reason Start Date Expiration Date Visits Requ ested Visits Authorized BOTTLING MACHINE OPERATOR Reason for Visit Reason Comments Knee Pain both knees x 3weeks-no injur y Encounter Details Date Type Department Care Team Description 12/22/2011 Office Visit [facility] Caitlin Ballesteros MD Knee pain, bilateral (Primary Dx); Medicine Clinic [facility] Contraception management; [address], PRACTICE Acne vulgaris [address] [place] [address] [phone] (Wo rk) Social History Tobacco Use Types Packs/Day Years Used Date Smoking Tobacco: Never Alcohol Use Standard Drinks/Week Comments No 0 (1 standard drink = 0.6 oz pure alcoho l) Sex Assigned at Date Recorded Not on file documented as of this encounter Last Filed Vital Signs Vital Sign Reading Time Taken Comments Blood Pressure 115/85 12/22/2011 2:06 PM MILK BOTTLING MACHINE OPERATOR Pulse 97 12/22/2011 2:06 PM MILK BOTTLING MACHINE OPERATOR Temperature 36.9 ??C (98.4 ??F) 12/22/2011 2:06 PM MILK BOTTLING MACHINE OPERATOR Respiratory Rate 16 12/22/2011 2:06 PM MILK BOTTLING MACHINE OPERATOR Oxygen Saturation - - Inhaled Oxygen Concentration - - Weight 68.9 kg (152 lb) 12/22/2011 2:06 PM MILK BOTTLING MACHINE OPERATOR Height 156.8 cm (5' 1.75) 12/22/2011 2:06 PM MILK BOTTLING MACHINE OPERATOR Body Mass Index 28.03 12/22/2011 2:06 PM MILK BOTTLING MACHINE OPERATOR documented in this encounter Patient Instructions Patient InstructionsCaitlin Ballesteros MD - 12/22/2011 6:38 PM CST Thank you for coming to [facility]. If you had lab testing today and your results are reassuring or normal they will be be mailed to you within 7 days. If the lab tests need quick action we will call you with the results. The phone number we will call with results is # [phone] (home) . If this is not the best numberplease call our clinic and change the number. If you need any refills please call your pharmacy and they will contact us. If you have any concerns about today's visit or wish to schedule another appointment please call ouroffice during normal business hours [phone] (8- 5:30 M-F) If you have urgent medical concerns please call [phone] at any time of the day. If you have a medical emergency please call 911 Again thank you for choosing [facility] and please let us know how we can best partner with youto improve your and your family's health. Referred to [facility] [phone] Referral faxed, [facility] to contact patient directly to schedule BOTTLING MACHINE OPERATOR documented in this encounter Progress Notes Keir Elias MD - 12/22/2011 3:55 PM CST Preceptor Attestation: Patient's case reviewed and discussed with resident and I examined the patient. I agree with writtenassessment and plan of care Supervising Physician: Keri Elias MD MD [facility] BOTTLING MACHINE OPERATOR Caitlin Ballesteros MD - 12/22/2011 2:25 PM [...] idiopathic scoliosis ??? , subsequent ??? Health Alf ??? Acne vulgaris ??? [...] ??? fluticasone (FLONASE) 50 MCG/ACT nasal spray [place] 2 sprays into both nostrils daily. ??? [...] with the final plan. Caitlin Ballesteros MD BOTTLING MACHINE OPERATOR documented in this encounter Plan of Treatment Scheduled Referrals Name Type Priority Associated Diagnoses Order S jaye PHYSICAL THERAPY REFERRAL Referral Routine Knee pain, bila teral Ordered: 12/22/2011 documented as of this encounter Visit Diagnoses Diagnosis Knee pain, bilateral - Primary Pain in joint, lower leg Contraception management Unspecified contraceptive management Acne vulgaris Other acne documented in this encounter Care Teams Cutting Inspector Relationship Specialty Start Date End Date Caitlin Ballesteros MD PCP - General 10/08/11 08/11/13 documented as of this encounter
--- OUTSIDE RECORDS SUMMARY | 2022-01-07 13:18 | XMS_ITS | Encounter Summary ---
:1980 Author Organization [place] Address [address] [facility] [place] [address] Care Team Providers Name Role Phone Caitlin Ballesteros MD Primary Care Provider Reason for Visit Reason Comments Abstract Encounter Details Date Type Department Care Team Description 12/19/2011 Abstract [facility] Abstract, Provider [address], [address] [place], [place] [address] Social History Tobacco Use Types Packs/Day Years Used Date Smoking Tobacco: Never Alcohol Use Standard Drinks/Week Comments No 0 (1 standard drink = 0.6 oz pure alcoho l) Sex Assigned at Date Recorded Not on file documented as of this encounter Plan of Treatment Not on filedocumented as of this encounter Visit Diagnoses Not on filedocumented in this encounter Care Teams Crap Shooter Relationship Specialty Start Date End Date Caitlin Ballesteros MD PCP - General 10/08/11 08/11/13 documented as of this encounter
--- OUTSIDE RECORDS SUMMARY | 2022-01-07 13:18 | XMS_ITS | Encounter Summary ---
:1980 Author Organization [place] Address [address] [facility] [place] [address] Care Team Providers Name Role Phone Andreas Patel MD Primary Care Provider Caitlin Ballesteros MD Primary Care Provider Lisa Dewitt DO Primary Care Provider Bebeto Roth MD Unavailable Astrid Rios PA-C Unavailable [facility] Primary Care Provider + Keri Elias MD Primary Care Provider Unavailable Francisco Metz MD Primary Care Provider [phone] Francisco Metz MD Unavailable [phone] Kenton Katz MD Unavailable Unavailable Karen Veliz DO Primary Care Provider Kenton Katz MD Unavailable Unavailable Karen Veliz DO Unavailable Encounter Details Date Type Department Care Team Description 10/06/2011 Office Visit-P INTERFACE P DEPT Greta Patel v, MD [facility] [address] [place], [place] [phone] (Wo rk) Social History Tobacco Use Types Packs/Day Years Used Date Smoking Tobacco: Never Alcohol Use Standard Drinks/Week Comments No 0 (1 standard drink = 0.6 oz pure alcoho l) Sex Assigned at Date Recorded Not on file documented as of this encounter Progress Notes Andreas Patel MD - 10/06/2011 1:20 PM CDT Line Person: AmandaJason parkurav Status: Signed Encounter: 2011-10-06 13:20:00.000 Type: FM Visit Reason For Visit This 31 year patient presents for {{{[ ]}}}[ preventive health visit ][ diabetes visit ]. {{{Product Development Worker used this visit; [ Hmong ][ Pitcairn Islander ][ Cuban ][ Oromo ][ Frisian ][ Other: ]}}} {{{Name of hook puller [ ]. Product Development Worker's Phone number: [ [phone] ][ [phone] ][ [phone] ][ [phone] ]-[ ]-[ ] }}} {{{Minor without Guardian. Verbal consent obtained from [ Mother ] [ Father ] [ ] by front end application developer staff [ ]. Contact number: [ [phone] ] [ [phone] ] [ [phone] ][ [phone] ] [ ] }}} {{{PHQ2 completed and [...] OB BIOPHYS PROFILE W/O NST Principal Result Product Development Worker: OSWALDO ARRIAGA PROFESSOR&& Biophysical profile. 09/30/11. Comparisons: [...] and agree with the findings. Performed at: [place]. Plan {{{Patient participated in and [ agrees ][ disagrees ] with today's plan.}}} {{{Patient's family participated in and [ agree ][ disagree ] with today's plan.}}} {{{Patient and family participated in and [ agree ][ disagree ] with today's plan.}}}. Signature Signed By: Andreas Patel M.D.,Resident; 10/10/2011 11:03 AM TRAVEL SERVICE CONSULTANT. documented in this encounter Plan of Treatment Not on filedocumented as of this encounter Visit Diagnoses Not on filedocumented in this encounter Care Teams Refrigerator Repairman Relationship Specialty Start Date End Date Andreas Patel MD PCP - General 10/05/11 10/07/11 [facility] [address] [place] [phone] Caitlin Ballesteros MD PCP - General 10/08/11 08/11/13 Lisa Dewitt DO PCP - General 08/12/13 07/15/14 [facility] [address] [place] [phone] Clinic - [facility] PCP - General 07/16/14 03/11/15 [facility] [address] [place] [address] Keri Elias PCP - General Family Practice 03/12/15 9 MD Isaías Glez Mitchell PCP - General Family Practice 11/14/18 04/02/20 MD Stevie Karen Veliz, PCP - General Family Medicine 04/03/[address] [place] [phone] (Fax) Bebeto Roth MD Orthopedics 07/09/[address] [facility] [facility] [address] [place] [address] Astrid Rios PA-C Physician Field Service Manager Physician Field Service Manager - 07/09/14 Surgical Francisco Metz Assigned PCP 07/04/19 02/01/20 MD Stevie [place] [address] [address] [place] [address] Kenton Katz Assigned PCP 02/02/20 08/27/20 MD Feliberto NO INFO AVAILABLE Kenton Katz Assigned Endocrinology 08/28/20 07/23/21 MD Feliberto Provider NO INFO AVAILABLE Karen Veliz, Assigned PCP 08/28/20 DO 2019 [address] [place] [address] documented as of this encounter
--- OUTSIDE RECORDS SUMMARY | 2022-01-07 13:18 | XMS_ITS | Encounter Summary ---
:1980 Author Organization [place] Address [address] [place] [address]. [place] [address] Care Team Providers Name Role Phone Unavailable Primary Care Provider Unavailable Encounter Details Date Type Department Care Team Description 09/30/2011 Orders Only [facility] Angela Holguin IUGR (intrauterine growth Imaging restriction) (Primary Dx) [address] [place] [id number] Social History Tobacco Use Types Packs/Day [...] this encounter Results US BIOPHYS PROFILE W/O [id number] PERFORMED (09/30/2011 2:02 PM CDT) Anatomical Region [...]
--- OUTSIDE RECORDS SUMMARY | 2022-01-07 13:18 | XMS_ITS | Encounter Summary ---
:1980 Author Organization [place] Address [address] [facility] [place] [address] Care Team Providers Name Role Phone Andreas Patel MD Primary Care Provider Caitlin Ballesteros MD Primary Care Provider Lisa Dewitt DO Primary Care Provider Bebeto Roth MD Unavailable Astrid Rios PA-C Unavailable [facility] Primary Care Provider + Keri Elias MD Primary Care Provider Unavailable Francisco Metz MD Primary Care Provider [phone] Francisco Metz MD Unavailable [phone] Kenton Katz MD Unavailable Unavailable Karen Veliz DO Primary Care Provider Kenton Katz MD Unavailable Unavailable Karen Veliz DO Unavailable Encounter Details Date Type Department Care Team Description 09/30/2011 [facility] Only [facility] Angela Lyons [address] [place], [place] [phone] Social History Tobacco Use [...] on filedocumented in this encounter Care Teams Forester Silviculture Relationship Specialty Start Date End Date Andreas Patel MD PCP - General 10/05/11 10/07/11 [facility] [address] [place] [address] Caitlin Ballesteros MD PCP - General 10/08/11 08/11/13 Lisa Dewitt DO PCP - General 08/12/13 07/15/14 [facility] [address] [place] [address] Clinic - [facility] PCP - General 07/16/14 03/11/15 [facility] [address] [place] [address] Keri Elias PCP - General Family Practice 03/12/15 9 MD Isaías Glez Mitchell PCP - General Family Practice 11/14/18 04/02/20 MD Stevie Karen Veliz, PCP - General Family Medicine 04/03/20 [address] [place] [address] Bebeto Roth MD Orthopedics 07/09/14 [facility] S [facility] [address] [place] [address] Astrid Rios PA-C Physician Frame Builder Physician Frame Builder - 07/09/14 Surgical Francisco Metz Assigned PCP 07/04/19 02/01/20 MD Stevie [place] [address] [address] [address] Kenton Katz Assigned PCP 02/02/20 08/27/20 MD Feliberto NO INFO AVAILABLE Kenton Katz Assigned Endocrinology 08/28/20 07/23/21 MD Feliberto Provider NO INFO AVAILABLE Karen Veliz, Assigned PCP 08/28/20 DO 2019 [place] [address] documented as of this encounter
--- OUTSIDE RECORDS SUMMARY | 2022-01-07 13:18 | XMS_ITS | Encounter Summary ---
:1980 Author Organization [place] Address [address] [place] [address]. [place] [address] Care Team Providers Name Role Phone Unavailable Primary Care Provider Unavailable Reason for Visit (Routine) - Closed Specialty Diagnoses / Procedures Referred By Contact Refer red To Contact Radiology Diagnoses US OB 2-3 TRIMESTER* Procedure Notes: POSITIVE TEST,SIZES, DATES Ur Ultrasound Procedures RADIOLOGY [address] [place] [phone] Phone: Referral ID Status Reason Start Date Expiration Date Visits Requ ested Visits Authorized [id number] Closed 04/26/2011 04/25/2012 1 1 Encounter Details Date Type Department Care Team Description 04/28/2011 Hospital Encounter [facility] Radha Navarro sitive [facility] Imaging MD Андрей test [address] [place] [address] [employer] (Work) [place] [address] Social History Tobacco Use Types [...]
--- OUTSIDE RECORDS SUMMARY | 2022-01-07 13:18 | XMS_ITS | Encounter Summary ---
:1980 Author Organization [place] Address [address] [facility] [place] [address] Care Team Providers Name Role Phone Unavailable Primary Care Provider Unavailable Encounter Details Date Type Department Care Team Description 05/30/2011 Office Visit-[facility] INTERFACE [facility] DEPT Greta Patel v, MD [facility] [address] [place] [address] (Wo rk) Social History Tobacco Use Types Packs/Day Years Used Date Smoking Tobacco: Never Assessed Sex Assigned at Date Recorded Not on file documented as of this encounter Progress Notes Andreas Patel MD - 05/30/2011 2:40 PM CDT Gage Maker: Andreas Patel Status: Final Encounter: 30 May 2011 Type: FM Letters [employer] Orders Ondansetron 4 MG Tablet Dispersible;TAKE 1 TABLET BEDTIME; Qty60; R1; Rx. Loratadine 10 MG Tablet;TAKE 1 TABLET DAILY NEEDED; Qty60; R1; Rx. Signature Signed By: Andreas Patel M.D.,Resident; 05/30/2011 6:10 PM FURNACE MECHANIC. documented in this encounter Plan of Treatment Not on filedocumented as of this encounter Visit Diagnoses Not on filedocumented in this encounter
--- OUTSIDE RECORDS SUMMARY | 2022-01-07 13:18 | XMS_ITS | Encounter Summary ---
:1980 Author Organization [place] Address [address] [facility] [place] [address] Care Team Providers Name Role Phone Andreas Patel MD Primary Care Provider Caitlin Ballesteros MD Primary Care Provider Lisa Dewitt DO Primary Care Provider Bebeto Roth MD Unavailable Astrid Rios PA-C Unavailable [facility] Primary Care Provider + Keri Elias MD Primary Care Provider Unavailable Francisco Metz MD Primary Care Provider [phone] Francisco Metz MD Unavailable [phone] Kenton Katz MD Unavailable Unavailable Karen Veliz DO Primary Care Provider Kenton Katz MD Unavailable Unavailable Karen Veliz DO Unavailable Encounter Details Date Type Department Care Team Description 09/08/2011 Office Visit-P INTERFACE P DEPT Karel Ontiveros MD 2019 [place] [address] (Wo rk) Social History Tobacco Use Types Packs/Day Years Used Date Smoking Tobacco: Never Assessed Sex Assigned at Date Recorded Not on file documented as of this encounter Progress Notes August Ontiveros MD - 09/08/2011 3:00 PM CDT File Machine Operator: August Ontiveros Status: Final Encounter: 2011-09-08 15:00:00.000 Type: FM Ultrasound Active Problems Acne Vulgaris (706.1) Anxiety (300.00) Care Coordinated By; Tier 0 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 US 2nd & 3rd Trimester Ultrasound Report Primary MD: Lesli/Amanda Bar Attendant: August Ontiveros Indications: size less than dates follow up Machine: Stroho 5 Pro FHR: 150s Fluid:Normal TJ: 14.5 [...] By: August Ontiveros M.D.; 09/09/2011 3:11 PM FELT TIPPING MACHINE TENDER; Author. TIPPING MACHINE TENDER documented in this encounter Plan of Treatment Not on filedocumented as of this encounter Visit Diagnoses Not on filedocumented in this encounter Care Teams Mint Machine Operator Relationship Specialty Start Date End Date Andreas Patel MD PCP - General 10/05/11 10/07/11 [facility] [address] [place] [address] Caitlin Ballesteros MD PCP - General 10/08/11 08/11/13 Lisa Dewitt DO PCP - General 08/12/13 07/15/14 [facility] [address] [place] [address] Clinic - [facility], PCP - General 07/16/14 03/11/15 [facility] 2019 [place] [address] Keri Elias PCP - General Family Practice 03/12/15 MD Isaías Glez Mitchell PCP - General Family Practice 11/14/18 04/02/20 MD Stevie Karen Veliz, PCP - General Family Medicine 04/03/20 DO 2019 [place] [address] Bebeto Roth MD Orthopedics 07/09/[address] [address] Astrid Rios PA-C Physician Bar Useful Or Busser Physician Bar Useful Or Busser - 07/09/14 Surgical Francisco Metz Assigned PCP 07/04/19 02/01/20 MD Stevie [address] [address] Kenton Katz Assigned PCP 02/02/20 08/27/20 MD Feliberto NO INFO AVAILABLE Kenton Katz Assigned Endocrinology 08/28/20 07/23/21 MD Feliberto Provider NO INFO AVAILABLE Karen Veliz, Assigned PCP 08/28/20 DO [address] [place] [phone] documented as of this encounter
--- OUTSIDE RECORDS SUMMARY | 2022-01-07 13:18 | XMS_ITS | Encounter Summary ---
:1980 Author Organization [place] Address [address] [place] [address] Care Team Providers Name Role Phone Unavailable [...] Navarro MD - 04/28/2011 5:23 PM CDT Dean Of Men: Radha Navarro Status: Amended, Final Encounter: 28 Apr 2011 Type: FM Letters [employer]osend Letters Ms. AZUL TELLEZ [address] [place] [address] April 28, 2011 Dear Ms. AZUL TELLEZ [...] CHPCR Negative for C. trachomatis rRNA by platform software engineer mediated amplification. A negative result by platform software engineer mediated amplification does not preclude the presence of C. trachomatis infection because results are dependent on proper and adequate collection, absence of inhibitors, and sufficient rRNA to be detected. N gnorrhoeae PCR 20 Apr 2011 04:32 PM - N gonorrhoeae PCR Specimen Description Cervical GCPCR Negative for N. gonorrhoeae rRNA by platform software engineer mediated amplification. A negative result by platform software engineer mediated amplification does not preclude the presence of N. gonorrhoeae infection because results are dependent on proper and adequate collection, absence of inhibitors, and sufficient rRNA to be detected. Cytopathology 20 Apr 2011 12:00 AM - Cytopathology PAP NIL Acc#: [id number] Signed: 04/22/2011 13:01 MR#: [id number] SPECIMEN/STAIN PROCESS: Pap imaged thin layer prep [...] adenocarcinomas or other cancers. TESTING LAB LOCATION: [facility], [address] [address], Processed and screened at [facility], [facility]. Orders Clotrimazole 1 % Cream ([place]);INSERT 1 APPLICATORFUL INTRAVAGINALLY AT BEDTIME NIGHTLY; Qty10; R0; Rx Amended By: Radha Navarro ; 04/28/2011 5:25 PM HAND CELL TUBER. Signature Signed By: Radha Navarro MD,Resident; 04/28/2011 5:24 PM HAND CELL TUBER; Author. Signed By: Radha Navarro MD,Resident; 04/28/2011 5:29 PM HAND CELL TUBER; Author. documented in this encounter Plan of Treatment Not on filedocumented as of this encounter Visit Diagnoses Not on filedocumented in this encounter
--- OUTSIDE RECORDS SUMMARY | 2022-01-07 13:18 | XMS_ITS | Encounter Summary ---
:1980 Author Organization [place] Address [facility] [place] [address] Care Team Providers Name Role Phone Unavailable Primary Care Provider Unavailable Encounter Details Date Type Department Care Team Description 08/18/[address] [facility] [address] [place] [address], [address] [place] [phone] (Wo rk) Social History Tobacco Use Types [...] 1:39 PM 2 1:39 CDT PM CDT [facility] LAB - LABDAQ Performing Organization Address City/State/ZIP Code Phon e Number UMP HISTORICAL RESULTS documented in this encounter Visit Diagnoses Not on filedocumented in this encounter
--- OUTSIDE RECORDS SUMMARY | 2022-01-07 13:18 | XMS_ITS | Encounter Summary ---
:1980 Author Organization [place] Address [address] [facility] [place] [address] Care Team Providers Name Role Phone Andreas Patel MD Primary Care Provider Caitlin Ballesteros MD Primary Care Provider Lisa Dewitt DO Primary Care Provider Bebeto Roth MD Unavailable Astrid Rios PA-C Unavailable [facility] Primary Care Provider + Keri Elias MD Primary Care Provider Unavailable Francisco Metz MD Primary Care Provider [phone] Francisco Metz MD Unavailable [phone] Kenton Katz MD Unavailable Unavailable Karen Veliz DO Primary Care Provider Kenton Katz MD Unavailable Unavailable Karen Veliz DO Unavailable Encounter Details Date Type Department Care Team Description 07/14/2011 Office Visit-[facility] INTERFACE [facility] DEPT Social History Tobacco Use Types Packs/Day Years Used Date Smoking Tobacco: Never Assessed Sex Assigned at Date Recorded Not on file documented as of this encounter Progress Notes SY [facility] ULTRASOUND - 07/14/2011 9:10 AM CDT Faceter: ADOLFO CURRY Status: Amended, Final Encounter: 2011-07-14 09:10:00.000 Type: FM Ultrasound Active Problems Acne Vulgaris (706.1) Anxiety (300.00) Care Coordinated By; Tier 0 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 US 2nd & 3rd Trimester Ultrasound Report Primary MD: Dr Navarro Cleaner Assistant: Latesha Harley Indications: size less than dates P: 2 Machine: Shidonni 5 Pro FHR: 143 bpm Fluid:Normal TJ: [...] By: August Ontiveros ; 07/19/2011 9:17 AM PRINTED CIRCUIT BOARD ASSEMBLER. Signature Signed By: Latesha Harley ; 07/14/2011 9:45 AM PRINTED CIRCUIT BOARD ASSEMBLER. Signed By: August Ontiveros M.D.; 07/19/2011 9:17 AM PRINTED CIRCUIT BOARD ASSEMBLER; Author. TED CIRCUIT BOARD ASSEMBLER documented in this encounter Plan of Treatment Not on filedocumented as of this encounter Visit Diagnoses Not on filedocumented in this encounter Care Teams Pot Room Supervisor Relationship Specialty Start Date End Date Andreas Patel MD PCP - General 10/05/11 10/07/11 [facility] [address] [place] [address] Caitlin Ballesteros MD PCP - General 10/08/11 08/11/13 Lisa Dewitt DO PCP - General 08/12/13 07/15/14 [facility] [address] [place] [address] Clinic - [facility] PCP - General 07/16/14 03/11/15 [facility] [address] [place] [address] Keri Elias PCP - General Family Practice 03/12/15 9 MD Isaías Glez Mitchell PCP - General Family Practice 11/14/18 04/02/20 MD Stevie Karen Veliz, PCP - General Family Medicine 04/03/20 DO 2019 [place] [address] Bebeto Roth MD Orthopedics 07/09/[address] [address] Astrid Rios PA-C Physician Facilities Management Executive Physician Facilities Management Executive - 07/09/14 Surgical Francisco Metz Assigned PCP 07/04/19 02/01/20 MD Stevie [address] [place] [address] Kenton Katz Assigned PCP 02/02/20 08/27/20 MD Feliberto NO INFO AVAILABLE Kenton Katz Assigned Endocrinology 08/28/20 07/23/21 MD Feliberto Provider NO INFO AVAILABLE Karen Veliz, Assigned PCP 08/28/20 DO 2019 [place] [address] documented as of this encounter
--- OUTSIDE RECORDS SUMMARY | 2022-01-07 13:18 | XMS_ITS | Encounter Summary ---
:1980 Author Organization [place] Address [address] [facility] [address] Care Team Providers Name Role Phone Andreas Patel MD Primary Care Provider Caitlin Ballesteros MD Primary Care Provider Lisa Dewitt DO Primary Care Provider Bebeto Roth MD Unavailable Astrid Rios PA-C Unavailable [facility] Primary Care Provider + Keri Elias MD Primary Care Provider Unavailable Francisco Metz MD Primary Care Provider [phone] Francisco Metz MD Unavailable [phone] Kenton Katz MD Unavailable Unavailable Karen Veliz DO Primary Care Provider Kenton Katz MD Unavailable Unavailable Karen Veliz DO Unavailable Encounter Details Date Type Department Care Team Description 09/22/2011 Office Visit-P INTERFACE P DEPT Nora Boyer MD [facility] [address] [place], [place] [phone] (Wo rk) Social History Tobacco Use Types Packs/Day Years Used Date Smoking Tobacco: Never Alcohol Use Standard Drinks/Week Comments No 0 (1 standard drink = 0.6 oz pure alcoho l) Sex Assigned at Date Recorded Not on file documented as of this encounter Progress Notes Aditi Boyer MD - 09/22/2011 2:00 PM CDT Registered Nursing Professor: Aditi Boyer Status: Final Encounter: 2011-09-22 14:00:00.000 [...] By: Aditi Boyer M.D.; 09/26/2011 2:06 PM GERONTOLOGY AIDE. documented in this encounter Plan of Treatment Not on filedocumented as of this encounter Visit Diagnoses Not on filedocumented in this encounter Care Teams Data Processing Operator Relationship Specialty Start Date End Date Andreas Patel MD PCP - General 10/05/11 10/07/11 [facility] [address] [place] [address] Caitlin Ballesteros MD PCP - General 10/08/11 08/11/13 Lisa Dewitt DO PCP - General 08/12/13 07/15/14 [facility] [address] [place], [place] [id number] Clinic - [facility] PCP - General 07/16/14 03/11/15 [facility] [address] [place] [address] Keri Elias PCP - General Family Practice 03/12/15 9 MD Isaías Glez Mitchell PCP - General Family Practice 11/14/18 04/02/20 MD Stevie Karen Veliz, PCP - General Family Medicine 04/03/20 DO 2019 [place] [address] Bebeto Roth MD Orthopedics 07/09/14 [facility] [address] [place] [address] Astrid Rios PA-C Physician Varnishing Unit Tool Setter Physician Varnishing Unit Tool Setter - 07/09/14 Surgical Francisco Metz Assigned PCP 07/04/19 02/01/20 MD Stevie [place] [address] [address] [address] Kenton Katz Assigned PCP 02/02/20 08/27/20 MD Feliberto NO INFO AVAILABLE Kenton Katz Assigned Endocrinology 08/28/20 07/23/21 MD Feliberto Provider NO INFO AVAILABLE Karen Veliz, Assigned PCP 08/28/20 DO [address] [place] [address] documented as of this encounter
--- OUTSIDE RECORDS SUMMARY | 2022-01-07 13:18 | XMS_ITS | Encounter Summary ---
:1980 Author Organization [place] Address [address] [facility] [address] Care Team Providers Name Role Phone Unavailable Primary Care Provider Unavailable Encounter Details Date Type Department Care Team Description 09/30/2011 Hospital Encounter M [facility] Cindy Pope MD Imaging [facility] [address] [facility] [place] [address] [facility] [phone] [place] [address] (Wo rk) Social History Tobacco [...]
--- OUTSIDE RECORDS SUMMARY | 2022-01-07 13:18 | XMS_ITS | Encounter Summary ---
:1980 Author Organization [place] Address [address] [facility] [place] [address] Care Team Providers Name Role Phone Andreas Patel MD Primary Care Provider Caitlin Ballesteros MD Primary Care Provider Lisa Dewitt DO Primary Care Provider Bebeto Roth MD Unavailable Astrid Rios PA-C Unavailable [facility] Primary Care Provider + Keri Elias MD Primary Care Provider Unavailable Francisco Metz MD Primary Care Provider [phone] Francisco Metz MD Unavailable [phone] Kenton Katz MD Unavailable Unavailable Karen Veliz DO Primary Care Provider Kenton Katz MD Unavailable Unavailable Karen Veliz DO Unavailable Encounter Details Date Type Department Care Team Description 09/08/2011 Office Visit-P INTERFACE P DEPT Greta Patel v, MD [facility] [address] [place] [address] (Wo rk) Social History Tobacco Use Types Packs/Day Years Used Date Smoking Tobacco: Never Assessed Sex Assigned at Date Recorded Not on file documented as of this encounter Progress Notes Andreas Patel MD - 09/08/2011 3:00 PM CDT Dairy Manager: Andreas Patel Status: Amended, Unsigned Encounter: 2011-09-08 15:00:00.000 Type: FM Ultrasound IGURATION ANALYST documented in this encounter Plan of Treatment Not on filedocumented as of this encounter Visit Diagnoses Not on filedocumented in this encounter Care Teams Oil Speculator Relationship Specialty Start Date End Date Andreas Patel MD PCP - General 10/05/11 10/07/11 [facility] [address] [place] [address] Caitlin Ballesteros MD PCP - General 10/08/11 08/11/13 Lisa Dewitt DO PCP - General 08/12/13 07/15/14 [facility] [address] [place] [address] Clinic - [facility] PCP - General 07/16/14 03/11/15 [facility] [address] [place] [address] Keri Elias PCP - General Family Practice 03/12/15 9 MD Isaías Glez Mitchell PCP - General Family Practice 11/14/18 04/02/20 MD Stevie Karen Veliz PCP - General Family Medicine 04/03/20 DO [address] [place] [address] Bebeto Roth MD Orthopedics 07/09/14 [facility] [address] [place] [address] Astrid Rios PA-C Physician Railroad Yard Worker Physician Railroad Yard Worker - 07/09/14 Surgical Francisco Metz Assigned PCP 07/04/19 02/01/20 MD Ste[place] [id number] [place] [address] ANGELLA LUCIO [address] Kenton Katz Assigned PCP 02/02/20 08/27/20 MD Feliberto NO INFO AVAILABLE Kenton Katz Assigned Endocrinology 08/28/20 07/23/21 MD Feliberto Provider NO INFO AVAILABLE Karen Veliz, Assigned PCP 08/28/20 DO 2019 [place] [address] documented as of this encounter
--- OUTSIDE RECORDS SUMMARY | 2022-01-07 13:18 | XMS_ITS | Encounter Summary ---
:1980 Author Organization [place] Address [address] [facility] [place] [address] Care Team Providers Name Role Phone Andreas Patel MD Primary Care Provider Caitlin Ballesteros MD Primary Care Provider Lisa Dewitt DO Primary Care Provider Bebeto Roth MD Unavailable Astrid Rios PA-C Unavailable [facility] Primary Care Provider + Keri Elias MD Primary Care Provider Unavailable Francisco Metz MD Primary Care Provider [phone] Francisco Metz MD Unavailable [phone] Kenton Katz MD Unavailable Unavailable Karen Veliz DO Primary Care Provider Kenton Katz MD Unavailable Unavailable Karen Veliz DO Unavailable Encounter Details Date Type Department Care Team Description 09/22/2011 Office Visit-[facility] INTERFACE [facility] DEPT Social History Tobacco Use Types Packs/Day Years Used Date Smoking Tobacco: Never Alcohol Use Standard Drinks/Week Comments No 0 (1 standard drink = 0.6 oz pure alcoho l) Sex Assigned at Date Recorded Not on file documented as of this encounter Progress Notes SY UMP ULTRASOUND - 09/22/2011 2:00 PM CDT Janitorial Supervisor: SMILEYS, ULTRASOUND Status: Amended, Final Encounter: 2011-09-22 14:00:00.000 Type: FM Ultrasound Active Problems Acne Vulgaris (706.1) Anxiety (300.00) Care Coordinated By; Tier 0 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 US Biophysical Profile Report Primary MD: Dr Patel /Dr Ballesteros / Dr Ontiveros International Tax Manager: Latesha Harley Indications: pt. not feeling baby move. Dr. Franks asked for a BPP Machine [employer] 5 Pro EGA 39wks by Previous US [...] By: Payton Franks ; 09/22/2011 3:03 PM WOMEN'S BASKETBALL COACH. Signature Signed By: Latesha Harley ; 09/22/2011 2:52 PM WOMEN'S BASKETBALL COACH. Signed By: Payton Franks M.D.; 09/22/2011 3:03 PM WOMEN'S BASKETBALL COACH; Author. Signed By: Aditi Boyer M.D.; 09/26/2011 2:03 PM WOMEN'S BASKETBALL COACH. N'S BASKETBALL COACH SY P ULTRASOUND - 09/22/2011 1:20 PM CDT Janitorial Supervisor: SMILEYS, ULTRASOUND Status: Amended, Final Encounter: 2011-09-22 13:20:00.000 Type: FM Ultrasound Active Problems Acne Vulgaris (706.1) Anxiety (300.00) Care Coordinated By; Tier 0 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 US 2nd & 3rd Trimester Ultrasound Report Primary MD: Dr Patel / Dr Ontiveros /Dr Ballesteros International Tax Manager: Latesha Harley Indications: recheck growth Machine: [employer] 5 Pro FHR: 143 bpm Fluid:Normal TJ: [...] By: August Ontiveros ; 09/26/2011 2:25 PM WOMEN'S BASKETBALL COACH. Signature Signed By: Latesha Harley ; 09/22/2011 2:41 PM WOMEN'S BASKETBALL COACH. Signed By: August Ontiveros M.D.; 09/26/2011 2:26 PM WOMEN'S BASKETBALL COACH; Author. N'S BASKETBALL COACH documented in this encounter Plan of Treatment Not on filedocumented as of this encounter Visit Diagnoses Not on filedocumented in this encounter Care Teams Seamer Operator Relationship Specialty Start Date End Date Andreas Patel MD PCP - General 10/05/11 10/07/11 [facility] [address] [place] [address] Caitlin Ballesteros MD PCP - General 10/08/11 08/11/13 Lisa Dewitt DO PCP - General 08/12/13 07/15/14 [facility] [address] [place] [address] Clinic - [facility], PCP - General 07/16/14 03/11/15 [facility] [address] [place] [address] Keri Elias PCP - General Family Practice 03/12/15 9 MD Isaías Glez Mitchell PCP - General Family Practice 11/14/18 04/02/20 MD Stevie Karen Veliz, PCP - General Family Medicine 04/03/20 DO 2019 [place] [address] Bebeto Roth MD Orthopedics 07/09/14 [facility] [place] [address] Astrid Rios PA-C Physician Forging Engineer Physician Forging Engineer - 07/09/14 Surgical Francisco Metz Assigned PCP 07/04/19 02/01/20 MD Stevie [address] [place] [address] Kenton Katz Assigned PCP 02/02/20 08/27/20 MD Feliberto NO INFO AVAILABLE Kenton Katz Assigned Endocrinology 08/28/20 07/23/21 MD Felib[place] Provider NO INFO AVAILABLE Karen Veliz, Assigned PCP 08/28/20 DO [address] [place] [address] documented as of this encounter
--- OUTSIDE RECORDS SUMMARY | 2022-01-07 13:18 | XMS_ITS | Encounter Summary ---
:1980 Author Organization [place] Address [address] [place] [address] Care Team Providers Name Role Phone Andreas Patel MD Primary Care Provider Caitlin Ballesteros MD Primary Care Provider Lisa Dewitt DO Primary Care Provider Bebeto Roth MD Unavailable Astrid Rios PA-C Unavailable [facility] Primary Care Provider + Keri Elias MD Primary Care Provider Unavailable Francisco Metz MD Primary Care Provider [phone] Francisco Metz MD Unavailable [phone] Kenton Katz MD Unavailable Unavailable Karen Veliz DO Primary Care Provider Kenton Katz MD Unavailable Unavailable Karen Veliz DO Unavailable Encounter Details Date Type Department Care Team Description 09/26/2011 Office Visit-[facility] Social History Tobacco Use Types Packs/Day Years Used Date Smoking Tobacco: Never Alcohol Use Standard Drinks/Week Comments No 0 (1 standard drink = 0.6 oz pure alcoho l) Sex Assigned at Date Recorded Not on file documented as of this encounter Progress Notes SY UMP ULTRASOUND - 09/26/2011 2:07 PM CDT Production Bow Maker: ADOLFO CURRY Status: Unsigned Encounter: 2011-09-26 14:07:00.000 [...] filedocumented in this encounter Care Teams Metal Gauge Maker Relationship Specialty Start Date End Date Andreas Patel MD PCP - General 10/05/11 10/07/11 [facility] [address] [place] [address] Caitlin Ballesteros MD PCP - General 10/08/11 08/11/13 Lisa Dewitt DO PCP - General 08/12/13 07/15/14 [facility] [address] [place], [place] [id number] Clinic - [facility], PCP - General 07/16/14 03/11/15 [facility] [address] [place] [address] Keri Elias PCP - General Family Practice 03/12/15 9 MD Isaías Glez Mitchell PCP - General Family Practice 11/14/18 04/02/20 MD Stevie Karen Veliz, PCP - General Family Medicine 04/03/20 DO 2019 [place] [address] Bebeto Roth MD Orthopedics 07/09/14 [facility] [place] [address] Astrid Rios PA-C Physician Chief Investigator Physician Chief Investigator - 07/09/14 Surgical Francisco Metz Assigned PCP 07/04/19 02/01/20 MD Stevie [address] [address] Kenton Katz Assigned PCP 02/02/20 08/27/20 MD Felib[place] NO INFO AVAILABLE Kenton Katz Assigned Endocrinology 08/28/20 07/23/21 MD [place]ib[place] Provider NO INFO AVAILABLE Karen Veliz, Assigned PCP 08/28/20 DO [address] [place] [address] documented as of this encounter
--- OUTSIDE RECORDS SUMMARY | 2022-01-07 13:18 | XMS_ITS | Encounter Summary ---
:1980 Author Organization [place] Address [facility] [place] [address] Care Team Providers Name Role Phone Unavailable Primary Care Provider Unavailable Encounter Details Date Type Department Care Team Description 09/08/2011 Results Only INTERFACED REPORT Andreas Patel MD [facility] [address] [place] [address] (Wo rk) Social History Tobacco [...] B strep PCR (09/08/2011 4:47 PM CDT) [facility] Method Time Signature Group B Strep Vaginal [facility] PCR Spec [place] Rectal Group B Strep Positive: GBS DNA detected, presumed positive for GBS. [facility] PCR Assay performed on incubated broth culture of specimen [facility] [employer] MICROBIOLOGY SmartCycler(R) real-time PCR. Specimen Anatomical Collection Method Collection Time Receive d Time (Source) Location / / Volume Laterality 09/08/2011 4:47 PM 2 4:52 CDT PM CDT Andreas Patel MD LAB - MICRO GENERAL ORDERABL ES Performing Organization Address City/State/ZIP Code Phon e Number [facility] [address] [place] [address] [facility] MICROBIOLOGY documented in this encounter Visit Diagnoses Not on filedocumented in this encounter
--- OUTSIDE RECORDS SUMMARY | 2022-01-07 13:18 | XMS_ITS | Encounter Summary ---
:1980 Author Organization [place] Address [address] [facility] [place] [address] Care Team Providers Name Role Phone Unavailable Primary Care Provider Unavailable Encounter Details Date Type Department Care Team Description 06/21/2011 Historic Results [facility] Leanne Navarro [place] MD Андрей [address] [place], [place] [phone] (Work) [place] [address] Social History Tobacco Use Types Packs/Day Years [...] Wet Prep (LabDAQ) (06/21/2011 4:05 PM CDT) [facility] Method Time Signature Yeast Wet Prep [...]
--- OUTSIDE RECORDS SUMMARY | 2022-01-07 13:18 | XMS_ITS | Encounter Summary ---
:1980 Author Organization [place] Address [address] [facility] [place] [address] Care Team Providers Name Role Phone Andreas Patel MD Primary Care Provider Caitlin Ballesteros MD Primary Care Provider Lisa Dewitt DO Primary Care Provider Bebeto Roth MD Unavailable Astrid Rios PA-C Unavailable [facility] Primary Care Provider + Keri Elias MD Primary Care Provider Unavailable Francisco Metz MD Primary Care Provider [phone] Francisco Metz MD Unavailable [phone] Kenton Katz MD Unavailable Unavailable Karen Veliz DO Primary Care Provider Kenton Katz MD Unavailable Unavailable Karen Veliz DO Unavailable Encounter Details Date Type Department Care Team Description 06/23/2011 Office Visit-[facility] INTERFACE P DEPT Social History Tobacco Use Types Packs/Day Years Used Date Smoking Tobacco: Never Assessed Sex Assigned at Date Recorded Not on file documented as of this encounter Progress Notes SY UMP ULTRASOUND - 06/23/2011 9:10 AM CDT Handle Lathe Operator: ADOLFO CURRY Status: Amended, Final Encounter: 2011-06-23 09:10:00.000 Type: FM Ultrasound Active Problems Acne Vulgaris (706.1) Anxiety (300.00) Care Coordinated By; Tier 0 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 US 2nd & 3rd Trimester Ultrasound Report Primary MD: Dr Navarro Director It: Latesha Harley Indications: survey P: 2 Machine: [employer] 5 Pro FHR: 138 bpm Fluid:Normal Placenta [...] By: August Ontiveros ; 06/27/2011 3:10 PM STRUCTURAL ENGINEERING DRAFTING OFFICER. Signature Signed By: Latesha Harley ; 06/23/2011 9:48 AM STRUCTURAL ENGINEERING DRAFTING OFFICER. Signed By: August Ontiveros M.D.; 06/27/2011 3:11 PM STRUCTURAL ENGINEERING DRAFTING OFFICER; Author. CTURAL ENGINEERING DRAFTING OFFICER documented in this encounter Plan of Treatment Not on filedocumented as of this encounter Visit Diagnoses Not on filedocumented in this encounter Care Teams Front End Java Developer Relationship Specialty Start Date End Date Andreas Patel MD PCP - General 10/05/11 10/07/11 [facility] [address] [place] [address] Caitlin Ballesteros MD PCP - General 10/08/11 08/11/13 Lisa Dewitt DO PCP - General 08/12/13 07/15/14 [facility] [address] [place] [address] [facility] PCP - General 07/16/14 03/11/15 [facility] [address] [place] [address] Keri Elias PCP - General Family Practice 03/12/15 9 MD Isaías Glez Mitchell PCP - General Family Practice 11/14/18 04/02/20 MD Stevie Karen Veliz PCP - General Family Medicine 04/03/20 [address] [place] [address] Bebeto Roth MD Orthopedics 07/09/[address] [place], [place] [address] Astrid Rios PA-C Physician Chassis Wirer Physician Chassis Wirer - 07/09/14 Surgical Francisco Metz Assigned PCP 07/04/19 02/01/20 MD Stevie [place] [address] ANGELLA LUCIO [address] Kenton Katz Assigned PCP 02/02/20 08/27/20 MD Feliberto NO INFO AVAILABLE Kenton Katz Assigned Endocrinology 08/28/20 07/23/21 MD Fel[place] Provider NO INFO AVAILABLE Karen Veliz, Assigned PCP 08/28/20[address] [place] [address] documented as of this encounter
--- OUTSIDE RECORDS SUMMARY | 2022-01-07 13:18 | XMS_ITS | Encounter Summary ---
:1980 Author Organization [place] Address [address] [place] [address]. [place] [address] Care Team Providers Name Role Phone Andreas Patel MD Primary Care Provider Reason for Visit Reason Comments Contractions every 6-12 minutes, became m ore painful the last two hours Auth/Cert - Closed Specialty Diagnoses / Procedures Referred By Contact Refer red To Contact coordinator mining products Diagnoses maternity*vincent: 09/19/2011/labor [id number] [facility] [address] [place] [address] Phone: Referral ID Status Reason Start Date Expiration Date Visits Requ ested Visits Authorized [id number] Closed 1 1 Encounter Details Date Type Department Care Team Description 10/04/2011 - Hospital Encounter JOSE CRUZ SERNA West[place], , subsequent (Prima ry Dx); 10/07/[address] [place] [address] [place] [address] [address] [place] [address] Social History Tobacco Use Types [...] from the original note were not included. [facility] Post- Discharge Summary Jocelin Garg Age: [age] year old Date of : 1980 Date of Admission: 10/04/2011 Date of Discharge:: 10/07/2011 Admitting Physician: August Ontiveros MD Discharge Physician: Dr. Boyer. Home clinic: [facility] Admission Diagnoses: Discharge Diagnosis: Normal spontaneous vaginal [...] Discharge Disposition: Discharged to home Miracle Teran,PGY1 [facility]. Attestation: This patient has been seen and evaluated by me, Aditi Boyer MD. Seen and discussed with the resident Dr Teran and Kenia's Team. I agree with the findings and plan in this note. I have reviewed today's vital signs, medications, labs and imaging. Aditi Boyer MD [facility] documented in this encounter Discharge Instructions Discharge InstructionsBeto Ordonez RN - 10/07/2011 1:53 PM CDT [facility] Vaginal Delivery or Discharge Instructions Activity: Go back to your normal activities, except pelvic rest for 6 weeks. Diet: You may eat a regular diet. Drink plenty of fluids. Call your Doctor or Interface Engineer if you have any of these symptoms: [...] [facility] PGY 1 Pager No. [phone] Attestation: This patient has been seen and [...] d/c tomorrow on PPD#2. Valarie Moore MD [facility] Jenae Wilosn RN - 10/05/2011 11:06 AM CDT Patient [...] Primary care provider: Andreas Patel Home Clinic: [facility] On 10/05/2011 at 0542, this 31 year [...] PGY-2 Nurse: KENNY Jonas PGY-2 Family Medicine [facility], [place] Pager : [phone] August Ontiveros MD Faculty [facility] August Ontiveros MD - 10/05/2011 4:08 AM CDT [facility] Intrapartum Progress Note October 05, 2011 [...] AM CDT October 05, 2011 Jocelin Garg [id number] OB Admit History & Physical Ms. Irma Garg is a patient of Andreas Ramsay and partner Amanda from [facility]. She is a 31 year old female [...] normal range. Labs ABO O 04/20/2011 , [id number] Pos 04/20/2011 Hemoglobin Date Value Range Status [...] lactated ringers solution ??? penicillin G potassium [id number] UNIT injection ??? lactated ringers infusion ??? [...] Individualization/Patient-Specific Goal (Adult,OB,Behavioral The patient and/or their passenger relations representative will achieve their patient-specific goals related to the plan of care. The patient-specific goals include: To discharge today. Patient discharged today. Discharge instructions reviewed and home medications given with instruction. Patient verbalized understanding and denied further questions. Plan of Care - Gina Gordon RN - 10/06/2011 9:46 PM CDT Problem: IP GENERAL POC-ADULT,OB,BEHAVIORAL FVCPM Goal: Individualization/Patient-Specific Goal (Adult,OB,Behavioral The patient and/or their passenger relations representative will achieve their patient-specific goals related [...] Individualization/Patient-Specific Goal (Adult,OB,Behavioral The patient and/or their passenger relations representative will achieve their patient-specific goals related [...] Outcome: Improving Data: Jocelin Garg transferred to [facility] via wheelchair at 830. Baby transferred via [...] Hemoglobin 8.2 (L) 11.7 - 15.7 [facility] g/dL LAB Specimen Anatomical Collection Method Collection Time Receive d Time (Source) Location / / Volume Laterality Blood specimen 10/06/2011 7:42 AM 012 7:57 (specimen) CDT AM CDT Andreas Patel MD LAB - BLOOD ORDERABLES Performing Organization Address City/State/ZIP Code Phon e Number [facility] [address] [place] [address] [facility] documented in this encounter Visit Diagnoses [...] be given until delivery. penicillin G potassium [id number] UNIT inje ction Starting on Mon10/05/11 at [...] discretion. documented in this encounter Care Teams Christmas Tree Farmer Relationship Specialty Start Date End Date Andreas Patel MD PCP - General 10/05/11 10/07/11 [facility] [address] [place] [address] documented as of this encounter
--- OUTSIDE RECORDS SUMMARY | 2022-01-07 13:18 | XMS_ITS | Encounter Summary ---
:1980 Author Organization [place] Address [address] [facility] [place] [address] Care Team Providers Name Role Phone Unavailable Primary Care Provider Unavailable Encounter Details Date Type Department Care Team Description 09/08/2011 Results Only INTERFACED REPORT Andreas Patel MD [facility] [address] [place], [place] [id number] (Wo rk) Social History Tobacco Use Types [...] Component Value Ref Test Analysis Performed At [facility] Range Method Time Signature Specimen [...] e Number [facility] [address] [place] [address] [facility] MICROBIOLOGY documented in this encounter Visit Diagnoses Not on filedocumented in this encounter
--- OUTSIDE RECORDS SUMMARY | 2022-01-07 13:18 | XMS_ITS | Encounter Summary ---
:1980 Author Organization [place] Address [facility] [place] [address] Care Team Providers Name Role Phone Unavailable Primary Care Provider Unavailable Encounter Details Date Type Department Care Team Description 06/21/2011 Results Only [facility] PHYS Radha De La Fuente [address] [facility] MD Андрей [place], [place] [address] [phone] Social History Tobacco Use Types Packs/Day Years [...] Component Value Ref Test Analysis Performed At [facility] Range Method Time Signature Specimen Cervical [facility] Descrip N Gonorrhea Negative for N. gonorrhoeae rRNA by supervisor heat treating mediated amplification. [facility] PCR A negative result [...] City/State/ZIP Code Phon e Number [facility] [address] [facility] MICROBIOLOGY documented in this encounter Visit Diagnoses Not on filedocumented in this encounter
--- OUTSIDE RECORDS SUMMARY | 2022-01-07 13:18 | XMS_ITS | Encounter Summary ---
:1980 Author Organization [place] Address [facility] [place] [address] Care Team Providers Name Role Phone Unavailable Primary Care Provider Unavailable Encounter Details Date Type Department Care Team Description 09/08/2011 Historic Results [facility] Andreas Patel MD Clinic [facility] [address] [place] [address], [address] [place] [phone] (Wo rk) Social History Tobacco Use Types [...]
--- OUTSIDE RECORDS SUMMARY | 2022-01-07 13:18 | XMS_ITS | Encounter Summary ---
:1980 Author Organization [place] Address [address] [facility] [place] [address] Care Team Providers Name Role Phone Unavailable Primary Care Provider Unavailable Encounter Details Date Type Department Care Team Description 09/22/2011 Hospital Encounter [facility] Juanis Boyer, Birth[facility] MD [address] [place] [address] 3567 [facility] [phone] [place] [address] (Wo rk) Social History Tobacco [...] handout). * Call your doctor or nurse map editor if your baby is moving less than [...] from the original note were not included. [facility] 1st Ob notel Azul Garg Age: [age] year old Date of : 1980 Date of Admission: 09/22/2011 5:00 PM History of Present Illness (Resident / Clinician): Azul Garg is a patient of Dr. Loja from [facility]. She is a 31 year old [id number] is 39+0w with VINCENT 09/29/2011 that is consistent with 04/28/2011 dating ultrasound, as patient is unsure about her LMP. [facility] the [facility] from [facility]- when patient complained of decreased movement over [...] Value: Negative for C. trachomatis rRNA by match marker mediated amplification. A negative result by match marker mediated amplification does not preclude the presence of C. trachomatis infection because results are dependent on proper and adequate collection, absence of inhibitors, and suffi cient rRNA to be detected. 06/21/2011 GCPCRT Value: Negative for N. gonorrhoeae rRNA by match marker mediated amplification. A negative result by match marker mediated amplification does not preclude the presence of N. gonorrhoeae infection because results are dependent on proper and adequate collection, absence of inhibitors, and suffi cient rRNA to be detected. 06/21/2011 TREPAB Negative 04/20/2011 RUBELLAABIGG 48 04/20/2011 HGB 9.5* 10/16/2009 HIV Negative 04/20/2011 GBS Value: Positive: GBS DNA detected, presumed positive for GBS. Assay performed on incubated broth culture of specimen using [employer] Private[employer]ycler(R) real-time PCR. 09/08/2011 Obstetrical History: She is [...] notify Dr. Patel or Dr. Patel from [facility] Miracle Teran MD [facility] PGY 1 Pager No. [phone] documented in this encounter H&P Notes Unknown, [...] big movements). Denies rom/bldg/regular contractions.I: EFM and [place] MD cynthia notified of pt arrival A: [...]
--- OUTSIDE RECORDS SUMMARY | 2022-01-07 13:18 | XMS_ITS | Encounter Summary ---
:1980 Author Organization [place] Address [address] [facility] [place] [address] Care Team Providers Name Role Phone Unavailable [...] Navarro MD - 05/09/2011 2:40 PM CDT Driver Trainee: Radha Navarro Status: Final Encounter: 09 May 2011 Type: FM Letters Autosend Letters Ms. AZUL TELLEZ [address] [place] [address] May 09, 2011 Dear Ms. AZUL TELLEZ [...] PM - US OB LIMITED Principal Result Radiology Tech: ZULMA FOREMAN DR&& EXAM: OB ultrasound 04/28/2011. [...] and agree with the findings. Performed at: [facility]. Signature Signed By: Radha Navarro MD,Resident; 05/09/2011 2:40 PM CIRCULATION SUPERVISOR; Author. documented in this encounter Plan of Treatment Not on filedocumented as of this encounter Visit Diagnoses Not on filedocumented in this encounter
--- OUTSIDE RECORDS SUMMARY | 2022-01-07 13:18 | XMS_ITS | Encounter Summary ---
:1980 Author Organization [place] Address [address] [facility] [place] [address] Care Team Providers Name Role Phone Unavailable Primary Care Provider Unavailable Encounter Details Date Type Department Care Team Description 07/19/2011 Historic Results [facility] Leanne Navarro Laird MD Андрей [address] [place], [place] [phone] (Work) [place] [address] Social History Tobacco Use Types Packs/Day Years [...] 1 Hr (LabDAQ) (07/19/2011 10:56 AM CDT) [facility] gist Method Time Signature Glu Gest [...]
--- OUTSIDE RECORDS SUMMARY | 2022-01-07 13:18 | XMS_ITS | Encounter Summary ---
:1980 Author Organization [place] Address [facility] [place] [address] Care Team Providers Name Role Phone Unavailable Primary Care Provider Unavailable Encounter Details Date Type Department Care Team Description 06/21/2011 Results Only [facility] PH[facility] Radha De La Fuente [address] [facility] MD Андрей [place], [place] [phone] Social History Tobacco Use Types Packs/Day Years [...] Component Value Ref Test Analysis Performed At [facility] Range Method Time Signature Specimen Cervical [facility] Chlamydia Negative for C. trachomatis rRNA by tool procurement coordinator mediated amplification. [facility] Trachomatis A negative result [...] Code Phon e Number [facility] [address] [place] [address] [facility] MICROBIOLOGY documented in this encounter Visit Diagnoses Not on filedocumented in this encounter
--- OUTSIDE RECORDS SUMMARY | 2022-01-07 13:18 | XMS_ITS | Encounter Summary ---
:1980 Author Organization [place] Address [address] [facility] [place] [address] Care Team Providers Name Role Phone Andreas Patel MD Primary Care Provider Caitlin Ballesteros MD Primary Care Provider Lisa Dewitt DO Primary Care Provider Bebeto Roth MD Unavailable Astrid Rios PA-C Unavailable [facility] Primary Care Provider + Keri Elias MD Primary Care Provider Unavailable Francisco Metz MD Primary Care Provider [phone] Francisco Metz MD Unavailable [phone] Kenton Katz MD Unavailable Unavailable Karen Veliz DO Primary Care Provider Kenton Katz MD Unavailable Unavailable Karen Veliz DO Unavailable Encounter Details Date Type Department Care Team Description 04/21/2011 Orders Only [facility] Radha Pierce ositive test Imaging (Primary Dx) [address] [place] [address] Social History Tobacco Use Types Packs/Day Years Used Date Smoking Tobacco: Never Assessed Sex Assigned at Date Recorded Not on file documented as of this encounter Plan of Treatment Not on filedocumented as of this encounter Visit Diagnoses Diagnosis Positive test - Primary examination or test, positive result documented in this encounter Care Teams Graphics Manager Relationship Specialty Start Date End Date Andreas Patel MD PCP - General 10/05/11 10/07/11 [facility] [address] [place] [address] [phone] Caitlin Ballesteros MD PCP - General 10/08/11 08/11/13 Lisa Dewitt DO PCP - General 08/12/13 07/15/14 [facility] [address] [place] [address] [phone] Clinic - [facility] PCP - General 07/16/14 03/11/15 [facility] [address] [place] [address] Keri Elias PCP - General Family Practice 03/12/15 9 MD Isaías Glez Mitchell PCP - General Family Practice 11/14/18 04/02/20 MD Stevie Karen Veliz, PCP - General Family Medicine 04/03/[address] [place] [address] Bebeto Roth MD Orthopedics 07/09/14 [facility] [place] [address] Astrid Rios PA-C Physician Bonsai Tender Physician Bonsai Tender - 07/09/14 Surgical Francisco Metz Assigned PCP 07/04/19 02/01/20 MD Stevie [place] [address] ANGELLA LUCIO [address] Kenton Katz Assigned PCP 02/02/20 08/27/20 MD Feliberto NO INFO AVAILABLE Kenton Katz Assigned Endocrinology 08/28/20 07/23/21 MD Feliberto Provider NO INFO AVAILABLE Karen Veliz, Assigned PCP 08/28/20 DO 2019 [place] [address] documented as of this encounter
--- OUTSIDE RECORDS SUMMARY | 2022-01-07 13:18 | XMS_ITS | Encounter Summary ---
:1980 Author Organization [place] Address [address] [facility] [place] [address] Care Team Providers Name Role Phone Andreas Patel MD Primary Care Provider Caitlin Pozo MD Primary Care Provider Lisa Dewitt DO Primary Care Provider eBbeto Roth MD Unavailable Astrid Rios PA-C Unavailable [facility] Primary Care Provider + Keri Elias MD Primary Care Provider Unavailable Francisco Metz MD Primary Care Provider [phone] Francisco Metz MD Unavailable [phone] Kenton Katz MD Unavailable Unavailable Karen Veliz DO Primary Care Provider Kenton Katz MD Unavailable Unavailable Karen Veliz DO Unavailable Encounter Details Date Type Department Care Team Description 09/01/2011 Office Visit-[facility] INTERFACE [facility] DEPT Social History Tobacco Use Types Packs/Day Years Used Date Smoking Tobacco: Never Assessed Sex Assigned at Date Recorded Not on file documented as of this encounter Progress Notes SY UMP ULTRASOUND - 09/01/2011 2:00 PM CDT Cement Finisher: ADOLFO CURRY Status: Amended, Final Encounter: 2011-09-01 14:00:00.000 Type: FM Ultrasound Active Problems Acne Vulgaris (706.1) Anxiety (300.00) Care Coordinated By; Tier 0 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 US 2nd & 3rd Trimester Ultrasound Report Primary MD: Dr Pozo Outpatient Physical Therapist: Latesha Harley Indications: Growth on prev. u/s = 5% P: 2 Machine: [employer] 5 Pro FHR: 152 bpm Fluid:Normal TJ: [...] By: August Ontiveros ; 09/07/2011 2:51 PM AUTOMATIC MAINTAINER. Signature Signed By: Latesha Harley ; 09/01/2011 2:51 PM AUTOMATIC MAINTAINER. Signed By: August Ontiveros M.D.; 09/07/2011 2:51 PM AUTOMATIC MAINTAINER; Author. MATIC MAINTAINER documented in this encounter Plan of Treatment Not on filedocumented as of this encounter Visit Diagnoses Not on filedocumented in this encounter Care Teams Sheet Metal Apprentice Relationship Specialty Start Date End Date Andreas Patel MD PCP - General 10/05/11 10/07/11 [facility] [address] [place] [address] Caitlin Pozo MD PCP - General 10/08/11 08/11/13 Lisa Dewitt DO PCP - General 08/12/13 07/15/14 [facility] [address] [place], [place] [phone] Clinic - [facility], PCP - General 07/16/14 03/11/15 [facility] [address] [place] [address] Keri Elias PCP - General Family Practice 03/12/15 9 MD Isaías Glez Mitchell PCP - General Family Practice 11/14/18 04/02/20 MD Stevie Karen Veliz, PCP - General Family Medicine 04/03/20 DO [address] [place] [address] Bebeto Roth MD Orthopedics 07/09/14 [facility] [place] [address] Astrid Rios PA-C Physician Back Tufter Physician Back Tufter - 07/09/14 Surgical Francisco Metz Assigned PCP 07/04/19 02/01/20 MD Stevie [address] [address] Kenton Katz Assigned PCP 02/02/20 08/27/20 MD Feliberto NO INFO AVAILABLE Kenton Katz Assigned Endocrinology 08/28/20 07/23/21 MD Feliberto Provider NO INFO AVAILABLE Karen Veliz, Assigned PCP 08/28/20 DO [address] [place], [place] [phone] documented as of this encounter
--- OUTSIDE RECORDS SUMMARY | 2022-01-07 13:19 | XMS_ITS | Encounter Summary ---
:1980 Author Organization [place] Address [address] [facility] [place] [address] Care Team Providers Name Role Phone Unavailable Primary Care Provider Unavailable Encounter Details Date Type Department Care Team Description 04/20/2011 Results Only [facility] PH[facility] STANDARD Melanie, Radha [address] [facility] MD Андрей [place], [place] [address] [phone] Social History Tobacco Use Types Packs/Day Years Used Date Smoking Tobacco: Never Assessed Sex Assigned at Date Recorded Not on file documented as of this encounter Plan of Treatment Pending Results Name Type Priority Associated Diagnoses Date/Ti me screen with HIV Lab Routine 08/2011 4:32 PM HOTEL SUPPLIES SALESPERSON documented as of this encounter Procedures Procedure Name Priority Date/Time Associated Diagnosis Comme nts SCREEN WITH Routine 04/20/2011 4:32 PM HOTEL SUPPLIES SALESPERSON HIV documented in this encounter Visit Diagnoses Not on filedocumented in this encounter
--- OUTSIDE RECORDS SUMMARY | 2022-01-07 13:19 | XMS_ITS | Encounter Summary ---
:1980 Author Organization [place] Address [facility] [place] [address] Care Team Providers Name Role Phone Unavailable Primary Care Provider Unavailable Encounter Details Date Type Department Care Team Description 04/20/2011 Results Only [facility] PH[facility] Radha De La Fuente 500 [facility] MD Андрей [place], [place] [phone] Social History Tobacco Use Types Packs/Day Years Used Date Smoking Tobacco: Never Assessed Sex Assigned at Date Recorded Not on file documented as of this encounter Plan of Treatment Not on filedocumented as of this encounter Procedures Procedure Name Priority Date/Time Associated Diagnosis Comme nts ANTI TREPONEMA Routine 04/20/2011 4:32 PM Results for this MOTHER HELPER procedure are i n the results section . documented in this encounter Results Anti treponema EIA (04/20/2011 4:32 PM MOTHER HELPER) Analysis Performed At Patho logist Time Signature Treponema Negative NEG [facility] Antibody [facility] Specimen Anatomical Collection Method Collection Time Receive d Time (Source) Location / / Volume Laterality 04/20/2011 4:32 PM 201 2 4:37 MOTHER HELPER PM MOTHER HELPER Radha Navarro MD LAB - BLOOD ORDERABLES Performing Organization Address City/State/ZIP Code Phon e Number [facility] [address] [place] [address] [facility] documented in this encounter Visit Diagnoses Not on filedocumented in this encounter
--- OUTSIDE RECORDS SUMMARY | 2022-01-07 13:19 | XMS_ITS | Encounter Summary ---
:1980 Author Organization [place] Address [facility] [place] [address] Care Team Providers Name Role Phone Unavailable Primary Care Provider Unavailable Encounter Details Date Type Department Care Team Description 04/20/2011 Results Only [facility] PH[facility] Radha De La Fuente 500 [facility] MD Андрей [place], [place] [phone] Social History Tobacco Use Types Packs/Day Years Used Date Smoking Tobacco: Never Assessed Sex Assigned at Date Recorded Not on file documented as of this encounter Plan of Treatment Not on filedocumented as of this encounter Procedures Procedure Name Priority Date/Time Associated Comments Diagnosis CHLAMYDIA TRACHOMATIS Routine 04/20/2011 4:32 PM Results for this PCR FARMWORKER GRAIN procedure are i n the results section. documented in this encounter Results Chlamydia trachomatis PCR (04/20/2011 4:32 PM FARMWORKER GRAIN) Component Value Ref Test Analysis Performed At [facility] Range Method Time Signature Specimen Cervical [facility] Chlamydia Negative for C. trachomatis rRNA by castings drafter mediated amplification. [facility] Trachomatis A negative result by transc ription mediated amplification does not preclude the MICROBIOLOGY PCR presence of C. trachomatis infection because results are dependent on proper and adequate collection, absence of inhibitors, and suffici ent rRNA to be detected. Specimen Anatomical Collection Method Collection Time Receive d Time (Source) Location / / Volume Laterality 04/20/2011 4:32 PM 2 4:37 FARMWORKER GRAIN PM FARMWORKER GRAIN Radha Navarro MD LAB - MICRO GENERAL ORDERABL ES Performing Organization Address City/State/ZIP Code Phon e Number [facility] [address] [place] [address] [facility] MICROBIOLOGY documented in this encounter Visit Diagnoses Not on filedocumented in this encounter
--- OUTSIDE RECORDS SUMMARY | 2022-01-07 13:19 | XMS_ITS | Encounter Summary ---
:1980 Author Organization [place] Address [facility] [place] [address] Care Team Providers Name Role Phone Unavailable Primary Care Provider Unavailable Encounter Details Date Type Department Care Team Description 04/20/2011 Results Only [facility] PHYS Radha De La Fuente 500 [facility] MD Андрей [place], [place] [phone] Social History Tobacco Use Types Packs/Day Years Used Date Smoking Tobacco: Never Assessed Sex Assigned at Date Recorded Not on file documented as of this encounter Plan of Treatment Not on filedocumented as of this encounter Procedures Procedure Name Priority Date/Time Associated Diagnosis Comme nts HEPATITIS B SURFACE Routine 04/20/2011 4:32 PM Re sults for this ANTIGEN BED WORKER procedure are i n the results section. documented in this encounter Results Hepatitis B surface antigen (04/20/2011 4:32 PM BED WORKER) Analysis Performed At Patho logist Time Signature Hep B Surface Negative NEG [facility] Specimen Anatomical Collection Method Collection Time Receive d Time (Source) Location / / Volume Laterality 04/20/2011 4:32 PM 201 2 4:37 BED WORKER PM BED WORKER Radha Navarro MD LAB - BLOOD ORDERABLES Performing Organization Address City/State/ZIP Code Phon e Number [facility] [address] [place] [address] [facility] documented in this encounter Visit Diagnoses Not on filedocumented in this encounter
--- OUTSIDE RECORDS SUMMARY | 2022-01-07 13:19 | XMS_ITS | Encounter Summary ---
:1980 Author Organization [place] Address [facility] [place] [address] Care Team Providers Name Role Phone Unavailable Primary Care Provider Unavailable Encounter Details Date Type Department Care Team Description 04/20/2011 Results Only [facility] PHYS Radha De La Fuente 500 [facility] MD Андрей [place], [place] [phone] Social History Tobacco Use Types Packs/Day Years Used Date Smoking Tobacco: Never Assessed Sex Assigned at Date Recorded Not on file documented as of this encounter Plan of Treatment Not on filedocumented as of this encounter Procedures Procedure Name Priority Date/Time Associated Comments Diagnosis NEISSERIA GONORRHOEAE Routine 04/20/2011 4:32 PM Results for this PCR COMMUNITY SERVICE OFFICER procedure are i n the results section. documented in this encounter Results Neisseria gonorrhoeae PCR (04/20/2011 4:32 PM COMMUNITY SERVICE OFFICER) Component Value Ref Test Analysis Performed At [facility] Range Method Time Signature Specimen Cervical [facility] Descrip N Gonorrhea Negative for N. gonorrhoeae rRNA by pumping plant operator mediated amplification. [facility] PCR A negative result by transc ription mediated amplification does not preclude the MICROBIOLOGY presence of N. gonorrhoeae infection because re sults are dependent on proper and adequate collection, absence of inhibitors, and suffici ent rRNA to be detected. Specimen Anatomical Collection Method Collection Time Receive d Time (Source) Location / / Volume Laterality 04/20/2011 4:32 PM 2 4:37 COMMUNITY SERVICE OFFICER PM COMMUNITY SERVICE OFFICER Radha Navarro MD LAB - MICRO GENERAL ORDERABL ES Performing Organization Address City/State/ZIP Code Phon e Number [facility] [address] [place] [address] [facility] MICROBIOLOGY documented in this encounter Visit Diagnoses Not on filedocumented in this encounter
--- OUTSIDE RECORDS SUMMARY | 2022-01-07 13:19 | XMS_ITS | Encounter Summary ---
:1980 Author Organization [place] Address [facility] [place] [address] Care Team Providers Name Role Phone Unavailable Primary Care Provider Unavailable Encounter Details Date Type Department Care Team Description 04/20/2011 Results Only [facility] PHYS Radha De La Fuente 500 [facility] MD Андрей [place], [place] [phone] Social History Tobacco Use Types Packs/Day Years Used Date Smoking Tobacco: Never Assessed Sex Assigned at Date Recorded Not on file documented as of this encounter Plan of Treatment Not on filedocumented as of this encounter Procedures Procedure Name Priority Date/Time Associated Diagnosis Comme nts VARICELLA ZOSTER Routine 04/20/2011 4:32 PM Resul ts for this ANTIBODY IGG MODEL MAKER SCALE procedure are i n the results section. documented in this encounter Results Varicella zoster antibody IgG (04/20/2011 4:32 PM MODEL MAKER SCALE) [facility] Method Time Signature Varicella 203.00 [facility] Zoster IgG [facility] Immune Status [facility] Ratio Vari Zoster Positive, [facility] IgG Interp suggests [facility] prev. [facility] exposure and probable immunity Specimen Anatomical Collection Method Collection Time Receive d Time (Source) Location / / Volume Laterality 04/20/2011 4:32 PM 2 4:37 MODEL MAKER SCALE PM MODEL MAKER SCALE Radha Navarro MD LAB - BLOOD ORDERABLES Performing Organization Address City/State/ZIP Code Phon e Number [facility] [address] [place] [address] [facility] documented in this encounter Visit Diagnoses Not on filedocumented in this encounter
--- OUTSIDE RECORDS SUMMARY | 2022-01-07 13:19 | XMS_ITS | Encounter Summary ---
:1980 Author Organization [place] Address [address] [facility] [place] [address] Care Team Providers Name Role Phone Unavailable Primary Care Provider Unavailable Encounter Details Date Type Department Care Team Description 03/03/2010 Office Visit-[facility] INTERFACE [facility] DEPT Provider, [facility] Nurs e Social History Tobacco Use Types Packs/Day Years Used Date Smoking Tobacco: Never Assessed Sex Assigned at Date Recorded Not on file documented as of this encounter Progress Notes Provider, [facility] Nurse - 03/03/2010 2:30 PM CST Food Service: Melvi Juárez Status: Final Encounter: 03 Mar 2010 Type: Rooming Note Reason For Visit Surgery follow up Do you have any other appointments, tests or procedures within the [facility] system for this same day? 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 documented in this encounter Plan of Treatment Not on filedocumented as of this encounter Visit Diagnoses Not on filedocumented in this encounter
--- OUTSIDE RECORDS SUMMARY | 2022-01-07 13:19 | XMS_ITS | Encounter Summary ---
:1980 Author Organization [place] Address [address] [facility] [place] [address] Care Team Providers Name Role Phone Unavailable Primary Care Provider Unavailable Encounter Details Date Type Department Care Team Description 04/20/2011 Results Only [facility] PHYS STANDARD Melanie, Radha [address] [facility] MD Андрей [place], [place] [phone] Social History Tobacco Use Types Packs/Day Years Used Date Smoking Tobacco: Never Assessed Sex Assigned at Date Recorded Not on file documented as of this encounter Plan of Treatment Not on filedocumented as of this encounter Procedures Procedure Name Priority Date/Time Associated Diagnosis Comme nts PAP IMAGED THIN Routine 04/20/2011 12:00 AM Resul ts for this LAYER SCREEN BATTERY TECHNICIAN procedure are i n the results section. documented in this encounter Results PAP imaged thin layer screen (04/20/2011 12:00 AM BATTERY TECHNICIAN) Component Value Ref Test Analysis Performed At [facility] Range Method Time Signature PAP NIL TITA Young Report TITA Acc#: [id number] ?? Signed: 04/22/2011 13:01 ?? MR#: [id number] SPECIMEN/STAIN PROCESS: Pap imaged thin layer prep [...] rcinomas or other cancers. TESTING LAB LOCATION: ??[place] [facility] [employer], [facility], [address] ?? [id number], Processed and screened at [facility] nt[facility], Former[facility], Later [facility] Specimen (Source) Anatomical Collection Method Collection Time Re ceived Time Location / / Volume Laterality 04/20/2011 04/21/2011 10:3 2 AM BATTERY TECHNICIAN Radha Navarro MD LAB - OPTIME CLINICAL SPECIM EN Performing Organization Address City/State/ZIP Code Phon e Number [place] documented in this encounter Visit Diagnoses Not on filedocumented in this encounter
--- OUTSIDE RECORDS SUMMARY | 2022-01-07 13:19 | XMS_ITS | Encounter Summary ---
:1980 Author Organization [place] Address Critical access hospital0 [facility] [place] [address] Care Team Providers Name Role Phone Unavailable Primary Care Provider Unavailable Encounter Details Date Type Department Care Team Description 04/20/2011 Results Only UU PHYS Radha De La Fuente 500 [facility] MD Андрей [place], [place] [phone] Social History Tobacco Use Types Packs/Day Years Used Date Smoking Tobacco: Never Assessed Sex Assigned at Date Recorded Not on file documented as of this encounter Plan of Treatment Not on filedocumented as of this encounter Procedures Procedure Name Priority Date/Time Associated Diagnosis Comme nts URINE CULTURE Routine 04/20/2011 4:32 PM Results for this NAIL MAKER procedure are i n the results section . documented in this encounter Results Urine culture (04/20/2011 4:32 PM NAIL MAKER) Component Value Ref Test Analysis Performed At [facility] Range Method Time Signature Specimen Midstream Urine [facility] Description MICROBIOLOGY Special Specimen received [facility] Requests in preservative MICROBIOLOGY Culture Micro 10 to 50,000 colonies/mL Mixed gram positive teresa [facility] Multiple species present, probable perineal contamination. MICROBIOLOGY Susceptibility testing not routinely done Micro Report FINAL 04/21/2011 [facility] Status MICROBIOLOGY Specimen Anatomical Collection Method Collection Time Receive d Time (Source) Location / / Volume Laterality 04/20/2011 4:32 PM 2 4:37 NAIL MAKER PM NAIL MAKER Radha Navarro MD LAB - MICRO GENERAL ORDERABL ES Performing Organization Address City/State/ZIP Code Phon e Number [facility] [address] [place] [address] EXLINE [facility] MICROBIOLOGY documented in this encounter Visit Diagnoses Not on filedocumented in this encounter
--- OUTSIDE RECORDS SUMMARY | 2022-01-07 13:19 | XMS_ITS | Encounter Summary ---
:1980 Author Organization [place] Address [address] [facility] [place] [address] Care Team Providers Name Role Phone Unavailable [...] Navarro MD - 12/14/2009 4:40 PM CDT Tool And Die Supervisor: Radha Navarro Status: Final Encounter: 14 Dec [...] CAPSULE DAILY WITH FOOD.; Rx Saline Nasal [place] 0.65 % Solution;USE 1 SPRAY IN EACH [...] By: Radha Navarro MD,Resident; 12/16/2009 8:48 AM WEAVING SUPERVISOR; Author. Signed By: August Ontiveros M.D.; 12/17/2009 3:30 PM WEAVING SUPERVISOR; Author. documented in this encounter Plan of Treatment Not on filedocumented as of this encounter Visit Diagnoses Not on filedocumented in this encounter
--- OUTSIDE RECORDS SUMMARY | 2022-01-07 13:19 | XMS_ITS | Encounter Summary ---
:1980 Author Organization [place] Address [address] [facility] [place] [address] Care Team Providers Name Role Phone Unavailable Primary Care Provider Unavailable Encounter Details Date Type Department Care Team Description 04/20/2011 Historic Results [facility] Leanne Navarro [place] MD Андрей [address] [place] [address] [place] [address] Social History Tobacco Use Types Packs/Day Years Used Date Smoking Tobacco: Never Assessed Sex Assigned at Date Recorded Not on file documented as of this encounter Plan of Treatment Not on filedocumented as of this encounter Procedures Procedure Name Priority Date/Time Associated Comments Diagnosis WET PREP (LABDAQ) Routine 04/20/2011 4:36 PM Resu lts for this BILLPOSTING SUPERVISOR procedure are i n the results section. URINALYSIS(LABDAQ) Routine 04/20/2011 4:36 PM Res ults for this BILLPOSTING SUPERVISOR procedure are i n the results section. HEMOGLOBIN (HGB) Routine 04/20/2011 4:36 PM Resul ts for this (LABDAQ) BILLPOSTING SUPERVISOR procedure are i n the results section. HCG QUALITATIVE URINE Routine 04/20/2011 3:20 PM Results for this (LABDAQ) BILLPOSTING SUPERVISOR procedure are i n the results section. documented in this encounter Results (ABNORMAL) Hemoglobin (HGB) (LabDAQ) (04/20/2011 4:36 PM BILLPOSTING SUPERVISOR) P athologist Signature Hemoglobin 10.9 (L) 11.7 - UMP HISTORICAL 15.7 g/dl RESULTS Specimen Anatomical Collection Method Collection Time Receive d Time (Source) Location / / Volume Laterality 04/20/2011 4:36 PM 2 4:36 BILLPOSTING SUPERVISOR PM BILLPOSTING SUPERVISOR Radha Navarro MD LAB - LABDAQ Performing Organization Address [facility]/ZIP Code Phon e Number UMP HISTORICAL RESULTS (ABNORMAL) Urinalysis(LabDAQ) (04/20/2011 4:36 PM BILLPOSTING SUPERVISOR) [facility] Method Time Signature Specific [place] 1.025 1.005 - UMP HISTORICA L Urine [...] Volume Laterality 04/20/2011 4:36 PM 2 4:36 BILLPOSTING SUPERVISOR PM BILLPOSTING SUPERVISOR Radha Navarro MD LAB - LABDAQ Performing Organization Address [facility]/ZIP Code Phon e Number UMP HISTORICAL RESULTS Wet Prep (LabDAQ) (04/20/2011 4:36 PM BILLPOSTING SUPERVISOR) [facility] Method Time [facility] Yeast Wet Prep [...] Volume Laterality 04/20/2011 4:36 PM 2 4:36 BILLPOSTING SUPERVISOR PM BILLPOSTING SUPERVISOR Radha Navarro MD LAB - LABDAQ Performing Organization Address City/[facility]/ZIP Code Phon e Number UMP HISTORICAL RESULTS HCG Qualitative Urine (LabDAQ) (04/20/2011 3:20 PM BILLPOSTING SUPERVISOR) [facility] Signature HCG Qual Urine POSITIVE UMP HISTORICAL RESULTS Specimen Anatomical Collection Method Collection Time Receive d Time (Source) Location / / Volume Laterality 04/20/2011 3:20 PM 2 3:20 BILLPOSTING SUPERVISOR PM BILLPOSTING SUPERVISOR Radha Navarro MD LAB - LABDAQ Performing Organization Address City/State/ZIP Code Phon e Number UMP HISTORICAL RESULTS documented in this encounter Visit Diagnoses Not on filedocumented in this encounter
--- OUTSIDE RECORDS SUMMARY | 2022-01-07 13:19 | XMS_ITS | Encounter Summary ---
:1980 Author Organization [place] Address [facility] [place] [address] Care Team Providers Name Role Phone Unavailable Primary Care Provider Unavailable Encounter Details Date Type Department Care Team Description 04/20/2011 Results Only UU PHYS STANDARD Radha Navarro 500 [facility] MD Андрей [place], [place] [phone] Social History Tobacco Use Types Packs/Day Years Used Date Smoking Tobacco: Never Assessed Sex Assigned at Date Recorded Not on file documented as of this encounter Plan of Treatment Not on filedocumented as of this encounter Procedures Procedure Name Priority Date/Time Associated Diagnosis Comme nts HEPATITIS B SURFACE Routine 04/20/2011 4:32 PM Re sults for this ANTIBODY SHOP ESTIMATOR procedure are i n the results section. documented in this encounter Results Hepatitis B surface antibody (04/20/2011 4:32 PM SHOP ESTIMATOR) P athologist Signature Hep B Surface 751.0 [facility] LABS Comment: Positive, Patient is considered to be im mune to infection with hepatitis B when the value is greater than or equal to 1 2.0 mlU/mL. Specimen Anatomical Collection Method Collection Time Receive d Time (Source) Location / / Volume Laterality 04/20/2011 4:32 PM 2 4:37 SHOP ESTIMATOR PM SHOP ESTIMATOR Radha Navarro MD LAB - BLOOD ORDERABLES Performing Organization Address City/State/ZIP Code Phon e Number [facility] [address] [place] [address] [facility] LABS documented in this encounter Visit Diagnoses Not on filedocumented in this encounter
--- OUTSIDE RECORDS SUMMARY | 2022-01-07 13:19 | XMS_ITS | Encounter Summary ---
:1980 Author Organization [place] Address [facility] [place] [address] Care Team Providers Name Role Phone Unavailable Primary Care Provider Unavailable Encounter Details Date Type Department Care Team Description 04/20/2011 Results Only [facility]U PHYS Radha De La Fuente 500 [facility] MD Андрей [place], [place] [phone] Social History Tobacco Use Types Packs/Day Years Used Date Smoking Tobacco: Never Assessed Sex Assigned at Date Recorded Not on file documented as of this encounter Plan of Treatment Not on filedocumented as of this encounter Procedures Procedure Name Priority Date/Time Associated Diagnosis Comme nts RUBELLA ANTIBODY Routine 04/20/2011 4:32 PM Resul ts for this IGG FILER REPAIRER procedure are i n the results section. documented in this encounter Results Rubella antibody IgG (04/20/2011 4:32 PM FILER REPAIRER) P athologist Signature Rubella PALOMA 48 IU/mL [facility] IgG CAMPUS LABS Comment: Interpretation: Positive, Immun e Specimen Anatomical Collection Method Collection Time Receive d Time (Source) Location / / Volume Laterality 04/20/2011 4:32 PM 2 4:37 FILER REPAIRER PM FILER REPAIRER Radha Navarro MD LAB - BLOOD ORDERABLES Performing Organization Address City/State/ZIP Code Phon e Number [facility] [address] [place] [address] [facility] LABS documented in this encounter Visit Diagnoses Not on filedocumented in this encounter
--- OUTSIDE RECORDS SUMMARY | 2022-01-07 13:19 | XMS_ITS | Encounter Summary ---
:1980 Author Organization [place] Address [address] [place] [address]. [place] [address] Care Team Providers Name Role Phone Unavailable Primary Care Provider Unavailable Encounter Details Date Type Department Care Team Description 03/03/2010 Office Visit-[facility] Orthopaedic Clinic Bebeto Roth [facility] MD Devan [address], [id number] [place] [phone] Social History Tobacco Use Types Packs/Day Years Used Date Smoking Tobacco: Never Assessed Sex Assigned at Date Recorded Not on file documented as of this encounter Progress Notes Bebeto Roth - 03/03/2010 2:30 PM CST Brazing Machine Setter: Bebeto Roth Status: Final - Signature Encounter: 03 Mar 2010 Type: U Ortho Visit Department of Orthopaedic Surgery Administration: [address], [address] [place] [address] or [phone] Appointments [email or web address] Mail Address: [address], [address] [place] [address] Shmuel Ruiz MD General Orthopaedics Marcella Wilson [...] by:Bebeto Roth M.D. 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 She is trying to earn enough [...] DP:pedro cc: Jocelin Solis [facility] [address] [facility] [address] Radha Navarro MD [facility] [address] [place] [address] Electronically signed by:Bebeto Roth M.D. Mar 11 2010 9:50AM FOREST OFFICER ST OFFICER documented in this encounter Plan of Treatment Not on filedocumented as of this encounter Visit Diagnoses Not on filedocumented in this encounter
--- OUTSIDE RECORDS SUMMARY | 2022-01-07 13:19 | XMS_ITS | Encounter Summary ---
:1980 Author Organization [place] Address [facility] [place] [address] Care Team Providers Name Role Phone Unavailable Primary Care Provider Unavailable Encounter Details Date Type Department Care Team Description 04/20/2011 Results Only UU PHYS STANDARD Radha Navarro 500 [facility] MD Андрей [place], [place] [phone] Social History Tobacco Use Types Packs/Day Years Used Date Smoking Tobacco: Never Assessed Sex Assigned at Date Recorded Not on file documented as of this encounter Plan of Treatment Not on filedocumented as of this encounter Procedures Procedure Name Priority Date/Time Associated Diagnosis Comme nts HIV 1 AND 2 Routine 04/20/2011 4:32 PM Results f or this ANTIBODY (QUEST) UNIVERSAL WORKER ASSISTED LIVING procedure a re in the results section. documented in this encounter Results HIV 1 and 2 Antibody (04/20/2011 4:32 PM UNIVERSAL WORK[facility]ED LIVING) Analysis Performed At Patho logist Time Signature HIV 1&2 Negative [facility] Antibody [facility] LABS Specimen Anatomical Collection Method Collection Time Receive d Time (Source) Location / / Volume Laterality 04/20/2011 4:32 PM 2 4:37 UNIVERSAL WORKER ASSISTED LIVING PM [facility]ISTED LIVING Radha Navarro MD LAB - BLOOD ORDERABLES Performing Organization Address City/State/ZIP Code Phon e Number [facility] [address] [place] [address] [facility] documented in this encounter Visit Diagnoses Not on filedocumented in this encounter
--- OUTSIDE RECORDS SUMMARY | 2022-01-07 13:19 | XMS_ITS | Encounter Summary ---
:1980 Author Organization [place] Address [facility]0 [facility] [address] Care Team Providers Name Role Phone Unavailable Primary Care Provider Unavailable Encounter Details Date Type Department Care Team Description 04/20/2011 Results Only UU PHYS STANDARD Radha Navarro 500 [facility] MD Андрей [place], [place] [phone] Social History Tobacco Use Types Packs/Day Years Used Date Smoking Tobacco: Never Assessed Sex Assigned at Date Recorded Not on file documented as of this encounter Plan of Treatment Not on filedocumented as of this encounter Procedures Procedure Name Priority Date/Time Associated Diagnosis Comme nts ABO/RH TYPE AND Routine 04/20/2011 4:32 PM Result s for this SCREEN ELECTRICAL TRANSMISSION ENGINEER procedure are i n the results section. documented in this encounter Results ABO/Rh type and screen (04/20/2011 4:32 PM ELECTRICAL TRANSMISSION ENGINEER) [facility] gist Method Time Signature ABO O [facility] RH(D) Pos [facility] Antibody Neg [facility] Screen [place] Specimen 04/23/2011 [facility] Expires [facility] Specimen Anatomical Collection Method Collection Time Receive d Time (Source) Location / / Volume Laterality 04/20/2011 4:32 PM 2 4:37 ELECTRICAL TRANSMISSION ENGINEER PM ELECTRICAL TRANSMISSION ENGINEER Radha Navarro MD LAB - BLOOD BANK TEST ORDER Performing Organization Address City/State/ZIP Code Phon e Number [facility] [address] [place] [address] [facility] documented in this encounter Visit Diagnoses Not on filedocumented in this encounter
--- OUTSIDE RECORDS SUMMARY | 2022-01-07 13:20 | XMS_ITS | Encounter Summary ---
:1980 Author Organization [place] Address [facility]0 [facility] [place] [address] Care Team Providers Name Role Phone Unavailable Primary Care Provider Unavailable Encounter Details Date Type Department Care Team Description 10/30/2009 Emergency room [facility] Lamont Brito, [facility] Results XXX [place] [address] Social History Tobacco Use Types Packs/Day Years Used Date Smoking Tobacco: Never Assessed Sex Assigned at Date Recorded Not on file documented as of this encounter Progress Notes Lamont Ramos - 11/04/2009 5:30 AM CDT FINAL Please see T-note. Azul Forrester is a 29-year-old female who presents with 2-day history of dysuria. She states that she started taking an [id number] medication, Urispas with improvement of her symptoms. [...] MD MT: PP Name: AZUL FORRESTER Account: [id number] : 1980 Visit Date: 10/30/2009 Document: [id number] cc: MAGGI FULLER MD documented in this encounter Plan of Treatment Not on filedocumented as of this encounter Visit Diagnoses Not on filedocumented in this encounter
--- OUTSIDE RECORDS SUMMARY | 2022-01-07 13:20 | XMS_ITS | Encounter Summary ---
:1980 Author Organization [place] Address [facility] [place] [address] Care Team Providers Name Role Phone Unavailable Primary Care Provider Unavailable Encounter Details Date Type Department Care Team Description 10/17/2009 Results Only [facility] Poll mirza, Bebeto Hartman MD Radiology Results [address] [place], [place] [phone] (Wo rk) Social History Tobacco Use Types Packs/Day Years Used Date Smoking Tobacco: Never Assessed Sex Assigned at Date Recorded Not on file documented as of this encounter Plan of Treatment Not on filedocumented as of this encounter Procedures Procedure Name Priority Date/Time Associated Diagnosis Comme nts HC X-RAY ABDOMEN AP Routine 10/17/2009 2:26 PM [...]
--- OUTSIDE RECORDS SUMMARY | 2022-01-07 13:20 | XMS_ITS | Encounter Summary ---
:1980 Author Organization [place] Address [address] [facility] [place] [address] Care Team Providers Name Role Phone Unavailable Primary Care Provider Unavailable Encounter Details Date Type Department Care Team Description 10/13/2009 Historic Notes INTERFACED REPORT Kev Rios MD [facility] ORTH OPED[facility] [address] [place], [place] [address] (Wo rk) Social History [...] PSF - prn pain meds, wean from BUS REPAIR SUPERVISOR to PO today - ADAT - WBAT, up with PT - encourage IS - florez out when ambulatory - appreciate Smileys input - upright xrays in a couple days - anticipate home by the end of the week Kev Rios MD [phone] [Signature] Author: KEV RIOS) [Signed 06:46] documented in this encounter Plan of Treatment Not on filedocumented as of this encounter Visit Diagnoses Not on filedocumented in this encounter
--- OUTSIDE RECORDS SUMMARY | 2022-01-07 13:20 | XMS_ITS | Encounter Summary ---
:1980 Author Organization [place] Address [address] [facility] [place] [address] Care Team Providers Name Role Phone Unavailable [...] Navarro MD - 11/17/2009 8:20 AM CDT Dress Finisher: Radha Navarro Status: Final Encounter: 17 Nov [...] CAPSULE DAILY WITH FOOD.; Rx Saline Nasal [place] 0.65 % Solution;USE 1 SPRAY IN EACH [...] like to follow up with someone at [facility] for her anxiety. 2.Nausea. The patient says [...] By: Radha Navarro MD,Resident; 11/19/2009 8:30 PM PRENATAL GENETIC COUNSELOR; Author. Signed By: MYLES ROBERT M.D.; 11/27/2009 8:03 AM PRENATAL GENETIC COUNSELOR. documented in this encounter Plan of Treatment Not on filedocumented as of this encounter Visit Diagnoses Not on filedocumented in this encounter
--- OUTSIDE RECORDS SUMMARY | 2022-01-07 13:20 | XMS_ITS | Encounter Summary ---
:1980 Author Organization [place] Address [address] [facility] [place] [address] Care Team Providers Name Role Phone Unavailable Primary Care Provider Unavailable Encounter Details Date Type Department Care Team Description 10/19/2009 Historic Notes INTERFACED REPORT Interface, Transcript on, Social History Tobacco Use Types Packs/Day Years Used Date Smoking Tobacco: Never Assessed Sex Assigned at Date Recorded Not on file documented as of this encounter Progress Notes Interface, Liaison Inspection Laboratory Assistant - 04/30/2010 8:35 PM CDT Discharge Summary - Reason for Discharge All goals and outcomes met, no further needs identified - Progress toward Goals met achieving short term goals/group home goals - Comments OT: goals met, training completed, equipment issued. no OT follow up recommended. patient to have assist from family as needed. - Continued Therapy No Recommended Signatures Laureen Casas (OT)[Signed 08:38] Authored: Discharge Summary Interface, Liaison Inspection Laboratory Assistant - 04/30/2010 8:33 PM CDT Discharge Summary - Reason for Discharge All goals and outcomes met, no further needs identified - Progress toward Goals met achieving short term goals/group home goals - Comments PT: By Oct 20, [...]
--- OUTSIDE RECORDS SUMMARY | 2022-01-07 13:20 | XMS_ITS | Encounter Summary ---
:1980 Author Organization [place] Address [address] [facility] [place] [address] Care Team Providers Name Role Phone Unavailable [...] Navarro MD - 10/27/2009 2:40 PM CDT Full Stack Developer: Radha Navarro Status: Final Encounter: 27 Oct [...] CAPSULE DAILY WITH FOOD.; Rx Saline Nasal [place] 0.65 % Solution;USE 1 SPRAY IN EACH [...] By: Radha Navarro MD,Resident; 10/29/2009 4:44 PM ENGLISH PROFESSOR; Author. Signed By: Cindy Pope M.D.; 10/29/2009 6:06 PM ENGLISH PROFESSOR; Author. documented in this encounter Plan of Treatment Not on filedocumented as of this encounter Visit Diagnoses Not on filedocumented in this encounter
--- OUTSIDE RECORDS SUMMARY | 2022-01-07 13:20 | XMS_ITS | Encounter Summary ---
:1980 Author Organization [place] Address [address] [facility] [place] [address] Care Team Providers Name Role Phone Unavailable [...]
--- OUTSIDE RECORDS SUMMARY | 2022-01-07 13:20 | XMS_ITS | Encounter Summary ---
:1980 Author Organization [place] Address [address] [facility] [place] [address] Care Team Providers Name Role Phone Unavailable [...] managed by the Ortho team with Dilaudid AUTO CAMP ATTENDANT. Per Orhto note, they will wean her [...]
--- OUTSIDE RECORDS SUMMARY | 2022-01-07 13:20 | XMS_ITS | Encounter Summary ---
:1980 Author Organization [place] Address [facility] [place] [address] Care Team Providers Name Role Phone Unavailable Primary Care Provider Unavailable Encounter Details Date Type Department Care Team Description 10/13/2009 Historic Results INTERFACED REPORT Kev Rios MD [facility] ORTH OP[facility] [address] [place], [place] [address] (Wo rk) Social History [...]
--- OUTSIDE RECORDS SUMMARY | 2022-01-07 13:20 | XMS_ITS | Encounter Summary ---
:1980 Author Organization [place] Address [facility] [place] [address] Care Team Providers Name Role Phone Unavailable Primary Care Provider Unavailable Encounter Details Date Type Department Care Team Description 10/18/2009 Historic Results INTERFACED REPORT Kev Rios MD [facility] [address] [place], [place] [address] (Wo rk) Social History [...] C difficile culture (10/18/2009 5:44 PM CDT) [facility] gist Method Time Signature Specimen Feces [...] the test. FDA approved assay performed using [employer] GeneXpert real-time PCR. A negative result does [...]
--- OUTSIDE RECORDS SUMMARY | 2022-01-07 13:20 | XMS_ITS | Encounter Summary ---
:1980 Author Organization [place] Address [facility]0 [facility] [place] [address] Care Team Providers Name Role Phone Unavailable Primary Care Provider Unavailable Encounter Details Date Type Department Care Team Description 10/12/2009 Historic Results [facility] Bebeto Roth [facility] MD Devan [place] [address] [facility] 1[address], [address] [place] [address] [address] [address] [place], [place] [address] Social History Tobacco Use [...] Address City/State/ZIP Code Phon e Number MISYS Routine UA with microscopic (10/12/2009 10:17 AM CDT) Component Value Ref Test Analysis Performed At [facility] Range Method Time Signature Source Catheterized MIS[place] Urine Color Urine Straw MISYS Appearance Urine Clear MISYS Glucose Urine Negative NEG [place] mg/dL Bilirubin Urine Negative NEG MISYS Ketones Urine Negative NEG MISYS mg/dL Specific [place] 1.005 1.003 - MISYS Urine 1.035 Blood [...] URINE ORDERABLES Performing Organization Address City/[facility] Phon e Number MISYS Urine culture (10/12/2009 10:17 AM CDT) Component Value Ref Test Analysis Performed At [facility] Method Time Signature Specimen Catheterized MISYS Description Urine Culture Micro No growth MISYS Micro Report FINAL 10/13/2009 MISYS Status Specimen Anatomical Collection Method Collection Time Receive d Time (Source) Location / / Volume Laterality 10/12/2009 10:17 10/12/2009 AM CDT 10:19 AM CDT Bebeto Roth MD LAB - MICRO GENERAL ORDERABL ES Performing Organization Address City/[facility]/ZIP Code Phon e Number MISYS (ABNORMAL) Routine UA with microscopic (10/12/2009 8:29 AM CDT) Component Value Ref Test Analysis Performed At [facility] Range Method Time Signature Source Unspecified MISYS Urine Color Urine Yellow MISYS Appearance Urine Clear MISYS Glucose Urine Negative NEG MISYS mg/dL Bilirubin Urine Negative NEG MISYS Ketones Urine Negative NEG MISYS mg/dL Specific [place] 1.018 1.003 - MISYS Urine 1.035 Blood [...]
--- OUTSIDE RECORDS SUMMARY | 2022-01-07 13:20 | XMS_ITS | Encounter Summary ---
:1980 Author Organization [place] Address [address] [facility] [place] [address] Care Team Providers Name Role Phone Unavailable Primary Care Provider Unavailable Encounter Details Date Type Department Care Team Description 10/17/2009 Historic Notes INTERFACED REPORT Jana Sullivan MD [facility] [address] [place], [place] [address] (Wo rk) Social History Tobacco Use Types [...] minimize ambulation as able full note dictated #[id number] Addendum Section 09:35 Entered By:ROB WEAVER Patient [...]
--- OUTSIDE RECORDS SUMMARY | 2022-01-07 13:20 | XMS_ITS | Encounter Summary ---
:1980 Author Organization [place] Address [address] [facility] [place] [address] Care Team Providers Name Role Phone Unavailable Primary Care Provider Unavailable Encounter Details Date Type Department Care Team Description 10/14/2009 Historic Notes INTERFACED REPORT Kev Rios MD [facility] [address] [place], [place] [address] (Wo rk) Social History [...] end of the week Kev Rios MD [phone] [Signature] Author: KEV RIOS) [Signed 06:54] documented in this encounter Plan of Treatment Not on filedocumented as of this encounter Visit Diagnoses Not on filedocumented in this encounter
--- OUTSIDE RECORDS SUMMARY | 2022-01-07 13:20 | XMS_ITS | Encounter Summary ---
:1980 Author Organization [place] Address [facility] [place] [address] Care Team Providers Name Role Phone Unavailable Primary Care Provider Unavailable Encounter Details Date Type Department Care Team Description 10/12/2009 Operative Report [facility] Myles De Oliveira (Elementary Reading Specialist) [facility] MD Devan Results [address] [place], [place] [address] Social History Tobacco Use Types Packs/Day Years [...] substance. SURGEON: Myles De Oliveira Jr., MD. SHACKLER: Kev Rios MD. SPONGE AND NEEDLE COUNT: [...] and position prone on the Chriss table 4-reiki practitioner frame. She was then prepared and draped in the usual sterile fashion. Because of some posterior acne on her scan, 2 separate sterile preps were done with DuraPrep. The spine was then exposed from T10 through L3. Intraoperative imaging was used to confirm the appropriate level of dissection. Once the spine was exposed, the tracking arc for the [employer] navigation system was placed on the spinous [...] MD MT: MAYRA Name: AZUL FORRESTER Account: [id number] : 1980 Procedure Date: 10/12/2009 Document: [id number] cc: Azul Forrester [facility] documented in this encounter Plan of Treatment Not on filedocumented as of this encounter Visit Diagnoses Not on filedocumented in this encounter
--- OUTSIDE RECORDS SUMMARY | 2022-01-07 13:20 | XMS_ITS | Encounter Summary ---
:1980 Author Organization [place] Address [address] [place] [address] Care Team Providers Name Role Phone Unavailable Primary Care Provider Unavailable Encounter Details Date Type Department Care Team Description 10/17/2009 Consultation [facility] Ronn Weaver MD [address] Results [place], [place] [address] (Wo rk) Social History Tobacco Use Types [...] nancy Name: AZUL DINH MRN: [id number] Account: [id number] : 1980 Consult Date: 10/17/2009 Document: [id number] cc: Bebeto Roth Jr, MD [facility] documented in this encounter Plan of Treatment Not on filedocumented as of this encounter Visit Diagnoses Not on filedocumented in this encounter
--- OUTSIDE RECORDS SUMMARY | 2022-01-07 13:20 | XMS_ITS | Encounter Summary ---
:1980 Author Organization [place] Address [address] [facility] [place] [address] Care Team Providers Name Role Phone Unavailable Primary Care Provider Unavailable Encounter Details Date Type Department Care Team Description 10/18/2009 Consultation [facility] Carlitos Weathers, [facility] PhD [facility] Results [facility] [address] [place] [address] (Wo rk) Social History Tobacco [...] her 2 sons in an apartment in [place]. Her parents are . Shereported that the sons' father is in [place]cf at this time. She reported that she had to move in with her mother a while back when both her and her mother had lost their jobs. 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 She has never been [...] can be faxed to our office at [facility] (fax [phone]), and it will be scored and gone [...] depression that may be happening. DSM-IV DIAGNOSES: [place] I: 300.00, Anxiety disorder, not otherwise specified. [place] II: Deferred. [place] III: Deferred to physician. [place] IV: Moderate to severe. [place] V: 30-35. Electronically signed on 10/19/2009 21:41 by CARLITOS WEATHERS, PHD As dictated by ADELINA HULL PSYD MT: THAO Name: AZUL DINH MRN: [id number] Account: [id number] : 1980 Consult Date: 10/18/2009 Document: [id number] cc: Bebeto Roth Jr, MD documented in this encounter Plan of Treatment Not on filedocumented as of this encounter Visit Diagnoses Not on filedocumented in this encounter
--- OUTSIDE RECORDS SUMMARY | 2022-01-07 13:20 | XMS_ITS | Encounter Summary ---
:1980 Author Organization [place] Address [address] [facility] [place] [address] Care Team Providers Name Role Phone Unavailable Primary Care Provider Unavailable Encounter Details Date Type Department Care Team Description 10/19/2009 Historic Notes INTERFACED REPORT Kev Rios MD [facility] [address] [place], [place] [address] (Wo rk) Social History [...] - d/c home today Kev Rios MD [phone] [Signature] Author: KEV RIOS) [Signed 07:11] documented in this encounter Plan of Treatment Not on filedocumented as of this encounter Visit Diagnoses Not on filedocumented in this encounter
--- OUTSIDE RECORDS SUMMARY | 2022-01-07 13:20 | XMS_ITS | Encounter Summary ---
:1980 Author Organization [place] Address [address] [place] [address] Care Team Providers Name Role Phone Unavailable Primary Care Provider Unavailable Encounter Details Date Type Department Care Team Description 10/19/2009 Historic Results INTERFACED REPORT Kev Rios MD [facility] [address] [place], [place] [address] (Wo rk) Social History [...]
--- OUTSIDE RECORDS SUMMARY | 2022-01-07 13:20 | XMS_ITS | Encounter Summary ---
:1980 Author Organization [place] Address [address] [facility] [place] [address] Care Team Providers Name Role Phone Unavailable Primary Care Provider Unavailable Encounter Details Date Type Department Care Team Description 10/12/2009 Historic Notes INTERFACED REPORT Interface, Transcript on, Social History Tobacco Use Types Packs/Day Years Used Date Smoking Tobacco: Never Assessed Sex Assigned at Date Recorded Not on file documented as of this encounter Progress Notes Interface, Forklift Truck Operator - 04/30/2010 8:57 PM CDT General Information [...] none Considerations - Developmental none Considerations - Samaritan none Considerations Signatures TAYLOR YAZAN (PT)[Signed 09:16] Authored: General Information, Role Relationships/Living Environment EZRA HERNANDEZ (RN)[Signed 19:02] Authored: Health and Illness, Review of Systems, Learning Assessment Interface, Forklift Truck Operator - 04/30/2010 8:57 PM CDT Progress Note [...] dry heaves. She is afraid to use HAND GLOVE CLEANER as she states she once overdosed on tyelol by accident because she misread the dosage on the bottle, she is very fearful of getting too much pain medication. Also, many concerns about surgery, nerves, etc. HAND GLOVE CLEANER and IVF infusing to L hand. Incision [...] with effect. Educated pt on use of HAND GLOVE CLEANER and reassured and explain how OD is [...]
--- OUTSIDE RECORDS SUMMARY | 2022-01-07 13:20 | XMS_ITS | Encounter Summary ---
:1980 Author Organization [place] Address Replaced by [facility] [address] Care Team Providers Name Role Phone Unavailable Primary Care Provider Unavailable Encounter Details Date Type Department Care Team Description 10/16/2009 Results Only [facility] Kev Rios MD Radiology Results [facility] [address] [place], [place] [address] (Wo rk) Social History Tobacco Use Types Packs/Day Years Used Date Smoking Tobacco: Never Assessed Sex Assigned at Date Recorded Not on file documented as of this encounter Plan of Treatment Not on filedocumented as of this encounter Procedures Procedure Name Priority Date/Time Associated Diagnosis Comme [facility] X-RAY SPINE Routine 10/16/2009 4:09 PM Results [...]
--- OUTSIDE RECORDS SUMMARY | 2022-01-07 13:20 | XMS_ITS | Encounter Summary ---
:1980 Author Organization [place] Address [address] [facility] [place] [address] Care Team Providers Name Role Phone Unavailable [...] note. Mary Codes - Daily Hospital Codes [address] Interval History - Interval History: No overnight [...] Discharged to home today. Follow up at [facility] in 7 -10 days. Signatures RADHA NAVARRO)[Signed 09:16] Authored: Interval History, Review of Systems, Physical Exam, Vital Signs/Labs/Imaging/Culture Review, VS, Assessment and Plan SHARYN SALEEM)[Signed 11:28] Authored: ATTENDING PHYSICIAN, Mary Codes documented in this encounter Plan of Treatment Not on filedocumented as of this encounter Visit Diagnoses Not on filedocumented in this encounter
--- OUTSIDE RECORDS SUMMARY | 2022-01-07 13:20 | XMS_ITS | Encounter Summary ---
:1980 Author Organization [place] Address [address] [facility] [place] [address] Care Team Providers Name Role Phone Unavailable Primary Care Provider Unavailable Encounter Details Date Type Department Care Team Description 11/25/2009 Office Visit-[facility] DE[facility] Unknown, Provider Social History Tobacco Use Types Packs/Day Years Used Date Smoking Tobacco: Never Assessed Sex Assigned at Date Recorded Not on file documented as of this encounter Progress Notes Unknown, Provider - 11/25/2009 11:30 AM CDT Client Program Manager: Tk Lopez Status: Final Encounter: 25 Nov 2009 Type: Rooming Note Reason For Visit Surgery follow up Do you have any other appointments, tests or procedures within the [facility] system for this same day? No Occupation: [...] CAPSULE DAILY WITH FOOD.; Rx Saline Nasal [place] 0.65 % Solution;USE 1 SPRAY IN EACH [...] By: Tk Lopez CMA; 11/25/2009 11:52 AM PRESENTATION TEAM MEMBER. documented in this encounter Plan of Treatment Not on filedocumented as of this encounter Visit Diagnoses Not on filedocumented in this encounter
--- OUTSIDE RECORDS SUMMARY | 2022-01-07 13:20 | XMS_ITS | Encounter Summary ---
:1980 Author Organization [place] Address [address] [facility] [place] [address] Care Team Providers Name Role Phone Unavailable Primary Care Provider Unavailable Encounter Details Date Type Department Care Team Description 10/18/2009 Historic Notes INTERFACED REPORT Kev Rios MD [facility] [address] [place], [place] [address] (Wo rk) Social History [...] next couple of days Kev Rios MD [phone] [Signature] Author: KEV RIOS) [Signed 08:11] documented in this encounter Plan of Treatment Not on filedocumented as of this encounter Visit Diagnoses Not on filedocumented in this encounter
--- OUTSIDE RECORDS SUMMARY | 2022-01-07 13:20 | XMS_ITS | Encounter Summary ---
:1980 Author Organization [place] Address [address] [facility] [address] Care Team Providers Name Role Phone Unavailable Primary Care Provider Unavailable Encounter Details Date Type Department Care Team Description 10/14/2009 Historic Notes INTERFACED REPORT Interface, Transcript on, Social History Tobacco Use Types Packs/Day Years Used Date Smoking Tobacco: Never Assessed Sex Assigned at Date Recorded Not on file documented as of this encounter Progress Notes Interface, Calculus Tutor - 04/30/2010 8:52 PM CDT General Information [...] Mobility: Rolling/Turning - Level of stand-by assist [place]: - Physical supervision; verbal cues Assist/Nonphysical Assist: - Assistive Device: bed rails Bed Mobility: Scooting/Bridging - Level of stand-by assist [place]: - Physical verbal cues; supervision Assist/Nonphysical Assist: - Assistive Device: bed rails Bed Mobility: Supine to Sit - Level of minimum assist (75% patients effort) [place]: - Physical set-up required; verbal cues Assist/Nonphysical Assist: - Assistive Device: bed rails Toilet Transfer - Level of unable to perform, wanted to have pain [place]: medication prior to getting OOB Eating/Self-Feeding - Level of stand-by assist [place]: - Physical set-up required Assist/Nonphysical Assist: Grooming - Level of stand-by assist [place]: - Physical set-up required Assist/Nonphysical Assist: Upper Body Dressing - Level of minimum assist (75% patients effort) [place]: - Physical set-up required; verbal cues; 1 person assist Assist/Nonphysical Assist: Lower Body Dressing - Level of maximum assist (25% patients effort) [place]: - Physical set-up required; verbal cues; 1 person assist Assist/Nonphysical Assist: - Assistive Device: rug cutter helper; sock-aid Self Care Analysis - Impairments fear [...] anxiety and pain which impairs overall ADL [place]. Patient declined OOB transfers this morning due [...] therapy goals): - Demonstrates need for PT; DEICER INSPECTOR ELECTRIC referral to another service: - Predicted Duration [...]
--- OUTSIDE RECORDS SUMMARY | 2022-01-07 13:20 | XMS_ITS | Encounter Summary ---
:1980 Author Organization [place] Address [address] [facility] [place] [address] Care Team Providers Name Role Phone Unavailable Primary Care Provider Unavailable Encounter Details Date Type Department Care Team Description 10/16/2009 Historic Notes INTERFACED REPORT Kev Rios MD [facility] [address] [place], [place] [address] (Wo rk) Social History [...] - upright xrays today Kev Rios MD [phone] [Signature] Author: KEV RIOS) [Signed 07:56] documented in this encounter Plan of Treatment Not on filedocumented as of this encounter Visit Diagnoses Not on filedocumented in this encounter
--- OUTSIDE RECORDS SUMMARY | 2022-01-07 13:20 | XMS_ITS | Encounter Summary ---
:1980 Author Organization [place] Address [address] [facility] [place] [address] Care Team Providers Name Role Phone Unavailable Primary Care Provider Unavailable Encounter Details Date Type Department Care Team Description 10/13/2009 Historic Notes INTERFACED REPORT Interface, Transcript on, Social History Tobacco Use Types Packs/Day Years Used Date Smoking Tobacco: Never Assessed Sex Assigned at Date Recorded Not on file documented as of this encounter Progress Notes Interface, Nuclear Test Technician - 04/30/2010 8:57 PM CDT Notification - Notified Person:: Resident - Notified Persons Balwindercurtis Name: - Notification Talked with Physician Interaction:: - Orders received?: No - Comments:: Discussed elevated HR and sudden onset of shaking with [place] residents rounding on pt. Resident assessed pt. No new orders. Will continue to monitor. EZRA Cardoso)[Signed 00:05] Authored: Notification Interface, Nuclear Test Technician - 04/30/2010 8:57 PM CDT Notification - Notified Person:: Resident - Notified Persons Wild Name: - Notification Talked with Physician Interaction:: - Purpose of Change in condition notification:: - Orders received?: Yes - Comments:: cALLED MD to discuss pt's unresolved nausea and anxiety (post zofran and valuim). Orders for compazine, and ativan received and given. Pt improved. EZRA Cardoso)[Signed 00:03] Authored: Notification Interface, Nuclear Test Technician - 04/30/2010 8:56 PM CDT General Information [...] Mobility: Rolling/Turning - Level of stand-by assist [place]: - Physical verbal cues; supervision Assist/Nonphysical Assist: - Assistive Device: bed rails Bed Mobility: Scooting/Bridging - Level of stand-by assist [place]: - Physical verbal cues; does not complete Assist/Nonphysical Assist: Bed Mobility: Sit to Supine - Level of contact guard [place]: - Physical verbal cues; 1 person assist Assist/Nonphysical Assist: Bed Mobility: Supine to Sit - Level of minimum assist (75% patients effort), contact [place]: guard - Physical 1 person assist; verbal cues Assist/Nonphysical Assist: - Assistive Device: bed rails Bed Mobility Analysis - Bed Mobility impaired ability to control trunk for mobility Limitations: - Impairments pain; post surgical precautions; fear and Contributing to anxiety Impaired Bed Mobility: Transfer: Sit to Stand - Level of unable to perform, pt anxious and nauseous, felt [place]: like she would vomit, declined Balance Skills [...] Muscle Tone, Treatment Plan, Clinical Impression Interface, Nuclear Test Technician - 04/30/2010 8:54 PM CDT Progress Note [...] out of bed. I: did not DC HEALTH AND FITNESS INSTRUCTOR because pt did not want to take pills. encourage use of IS. A: dressing to incision CDI. rates pain 8 but able to sleep. Signatures Amber Hedrick (RN)[Signed 14:37] Authored: Progress Note documented in this encounter Plan of Treatment Not on filedocumented as of this encounter Visit Diagnoses Not on filedocumented in this encounter
--- OUTSIDE RECORDS SUMMARY | 2022-01-07 13:20 | XMS_ITS | Encounter Summary ---
:1980 Author Organization [place] Address [address] [facility] [address] Care Team Providers Name Role Phone Unavailable Primary Care Provider Unavailable Encounter Details Date Type Department Care Team Description 10/16/2009 Historic Results INTERFACED REPORT Kev Rios MD [facility] [address] [place], [place] [address] (Wo rk) Social History [...] Value Ref Test Analysis Performed At [facility] Range Method Time Signature Source Catheterized MISYS Urine Color Urine Yellow MISYS Appearance Urine Slightly Cloudy MISYS Glucose Urine Negative NEG MISYS mg/dL Bilirubin Urine Negative NEG MISYS Ketones Urine 5 (A) NEG MISYS mg/dL Specific [place] 1.007 1.003 - MISYS Urine 1.035 Blood [...] Component Value Ref Test Analysis Performed At [facility] gist Range Method Time Signature Specimen [...]
--- OUTSIDE RECORDS SUMMARY | 2022-01-07 13:20 | XMS_ITS | Encounter Summary ---
:1980 Author Organization [place] Address [facility] [place] [address] Care Team Providers Name Role Phone Unavailable Primary Care Provider Unavailable Encounter Details Date Type Department Care Team Description 10/19/2009 Discharge Summary [facility] Myles De Oliveira (Press Manager) [facility] MD Devan Results [address] [place], [place] [phone] Social History Tobacco Use Types Packs/Day Years [...] surgical floor. Her primary care group from [facility] was asked to follow the patient as well given her history of anxiety. On postoperative day #1, she had moderate pain and required the use of Dilaudid ELECTRONICS WARFARE TECHNICIAN for pain control. She had some early [...] MD MT: DARLEEN Name: AZUL DINH Account: [id number] : 1980 Admit Date: [id number] Discharge Date: 10/19/2009 Document: [id number] cc: [facility] documented in this encounter Plan of Treatment Not on filedocumented as of this encounter Visit Diagnoses Not on filedocumented in this encounter
--- OUTSIDE RECORDS SUMMARY | 2022-01-07 13:20 | XMS_ITS | Encounter Summary ---
:1980 Author Organization [place] Address [address] [facility] [place] [address] Care Team Providers Name Role Phone Unavailable [...]
--- OUTSIDE RECORDS SUMMARY | 2022-01-07 13:20 | XMS_ITS | Encounter Summary ---
:1980 Author Organization [place] Address [address] [facility] [place] [address] Care Team Providers Name Role Phone Unavailable [...] seroquel. Admission - Date: 22:00 - Service: [facility]. - Chief Complaint: Back pain. [...]
--- OUTSIDE RECORDS SUMMARY | 2022-01-07 13:20 | XMS_ITS | Encounter Summary ---
:1980 Author Organization [place] Address [address] [place] [address]. [place] [address] Care Team Providers Name Role Phone Unavailable Primary Care Provider Unavailable Encounter Details Date Type Department Care Team Description 11/25/2009 Office Visit-[facility] Orthopaedic Clinic Bebeto Rothide Renzo Hartman MD [address] Floor, [id number] [place] [phone] Social History Tobacco Use Types Packs/Day Years Used Date Smoking Tobacco: Never Assessed Sex Assigned at Date Recorded Not on file documented as of this encounter Progress Notes Bebeto Roth - 11/25/2009 11:30 AM CDT Child Neurologist: Bebeto Roth Status: Final - Signature Encounter: 25 Nov 2009 Type: U Ortho Visit Department of Orthopaedic Surgery Administration: [address], [address] [place] [address] or [phone] Appointments [email or web address] Mail Address: [address], [address] [place] [address] Shmuel Ruiz MD General Orthopaedics Marcella Wilson [...] actually gone back to work in an [employer] type setting and 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 She has completed an SRS 30 questionnaire. [...] of Spine Service DP:pedro cc: Jocelin Solis [address] [address] Radha Navarro MD [facility] [address] [place] [address] Electronically signed by:Bebeto Roth M.D. Dec 03 2009 8:42AM SASH ASSEMBLER documented in this encounter Plan of Treatment Not on filedocumented as of this encounter Visit Diagnoses Not on filedocumented in this encounter
--- OUTSIDE RECORDS SUMMARY | 2022-01-07 13:20 | XMS_ITS | Encounter Summary ---
:1980 Author Organization [place] Address [facility] [place] [address] Care Team Providers Name Role Phone Unavailable Primary Care Provider Unavailable Encounter Details Date Type Department Care Team Description 10/14/2009 Historic Results INTERFACED REPORT Kev Rios MD [facility] ORTH OPEDICS [address] [place], [place] [address] (Wo rk) Social History [...]
--- OUTSIDE RECORDS SUMMARY | 2022-01-07 13:20 | XMS_ITS | Encounter Summary ---
:1980 Author Organization [place] Address [facility] [place] [place] [address] Care Team Providers Name Role Phone Unavailable Primary Care Provider Unavailable Encounter Details Date Type Department Care Team Description 10/30/2009 Historic Results [facility] [address] Social History Tobacco Use Types Packs/Day Years [...] Component Value Ref Test Analysis Performed At [facility] Range Method Time Signature Source Unspecified MISYS Urine Color Urine Yellow MISYS Appearance Urine Clear MISYS Glucose Urine Negative NEG MISYS mg/dL Bilirubin Urine Negative NEG MISYS Ketones Urine Negative NEG MISYS mg/dL Specific [place] 1.017 1.003 - MISYS Urine 1.035 Blood [...] ORDERABLES Performing Organization Address City/[facility] Phon e Number MISYS HCG qualitative [...] LAB - URINE ORDERABLES Performing Organization Address [facility] Phon e Number MISYS Urine culture (10/30/2009 5:20 PM CDT) [facility] gist Method Time Signature Specimen Unspecified MISYS [...] ES Performing Organization Address City/[facility] Phon e Number MISYS documented in this encounter Visit Diagnoses Not on filedocumented in this encounter
--- OUTSIDE RECORDS SUMMARY | 2022-01-07 13:20 | XMS_ITS | Encounter Summary ---
:1980 Author Organization [place] Address [address] [place] [address] Care Team Providers Name Role Phone Unavailable Primary Care Provider Unavailable Encounter Details Date Type Department Care Team Description 10/15/2009 Historic Notes INTERFACED REPORT Kev Rios MD [facility] ORTH OPEDICS [address] [place], [place] [address] (Wo rk) Social History [...] the week or weekend Kev Rios MD [phone] [Signature] Author: KEV RIOS) [Signed 06:51] documented in this encounter Plan of Treatment Not on filedocumented as of this encounter Visit Diagnoses Not on filedocumented in this encounter
--- OUTSIDE RECORDS SUMMARY | 2022-01-07 13:20 | XMS_ITS | Encounter Summary ---
:1980 Author Organization [place] Address [address] [facility] [place] [address] Care Team Providers Name Role Phone Unavailable Primary Care Provider Unavailable Encounter Details Date Type Department Care Team Description 10/17/2009 Historic Notes INTERFACED REPORT Aguust Ontiveros MD [address] [facility] [address] [place] [phone] (Wo rk) Social History Tobacco Use Types [...]
--- OUTSIDE RECORDS SUMMARY | 2022-01-07 13:20 | XMS_ITS | Encounter Summary ---
:1980 Author Organization [place] Address [address] [facility] [place] [address] Care Team Providers Name Role Phone Unavailable Primary Care Provider Unavailable Encounter Details Date Type Department Care Team Description 10/17/2009 Historic Notes INTERFACED REPORT Myles De Oliveira MD [address] [place] [address] (Wo rk) Social History Tobacco Use Types [...]
--- OUTSIDE RECORDS SUMMARY | 2022-01-07 13:20 | XMS_ITS | Encounter Summary ---
:1980 Author Organization [place] Address [address] [facility] [place] [address] Care Team Providers Name Role Phone Unavailable [...]
--- OUTSIDE RECORDS SUMMARY | 2022-01-07 13:20 | XMS_ITS | Encounter Summary ---
:1980 Author Organization [place] Address [address] [facility] [place] [address] Care Team Providers Name Role Phone Unavailable Primary Care Provider Unavailable Encounter Details Date Type Department Care Team Description 10/16/2009 Historic Notes INTERFACED REPORT Interface, Transcript on, Social History Tobacco Use Types Packs/Day Years Used Date Smoking Tobacco: Never Assessed Sex Assigned at Date Recorded Not on file documented as of this encounter Progress Notes Interface, Cobol Mainframe Developer - 04/30/2010 8:41 PM CDT Notification - [...] MAIKEL GRUBBS (RN)[Signed 17:22] Authored: Notification Interface, Cobol Mainframe Developer - 04/30/2010 8:41 PM CDT Notification - [...] MAIKEL GRUBBS (RN)[Signed 21:03] Authored: Notification Interface, Cobol Mainframe Developer - 04/30/2010 8:41 PM CDT MD Notification [...]
--- OUTSIDE RECORDS SUMMARY | 2022-01-07 13:20 | XMS_ITS | Encounter Summary ---
:1980 Author Organization [place] Address [address] [facility] [place] [address] Care Team Providers Name Role Phone Unavailable Primary Care Provider Unavailable Encounter Details Date Type Department Care Team Description 10/17/2009 Historic Notes INTERFACED REPORT Kev Rios MD [facility] ORTH OPEDICS [address] [place], [place] [address] (Wo rk) Social History [...] next couple of days Kev Rios MD [phone] [Signature] Author: KEV RIOS () [Signed 07:33] documented in this encounter Plan of Treatment Not on filedocumented as of this encounter Visit Diagnoses Not on filedocumented in this encounter
--- OUTSIDE RECORDS SUMMARY | 2022-01-07 13:20 | XMS_ITS | Encounter Summary ---
:1980 Author Organization [place] Address [facility] [place] [address] Care Team Providers Name Role Phone Unavailable Primary Care Provider Unavailable Encounter Details Date Type Department Care Team Description 10/12/2009 Results Only [facility] Poll y, Bebeto Hartman MD Radiology Results [address] [place], [place] [phone] (Wo rk) Social History Tobacco Use Types Packs/Day Years Used Date Smoking Tobacco: Never Assessed Sex Assigned at Date Recorded Not on file documented as of this encounter Plan of Treatment Not on filedocumented as of this encounter Procedures Procedure Name Priority Date/Time Associated Diagnosis Comme [facility] X-RAY SPINE Routine 10/12/2009 2:54 [...]
--- OUTSIDE RECORDS SUMMARY | 2022-01-07 13:20 | XMS_ITS | Encounter Summary ---
:1980 Author Organization [place] Address [facility] [place] [address] Care Team Providers Name Role Phone Unavailable Primary Care Provider Unavailable Encounter Details Date Type Department Care Team Description 10/15/2009 Historic Retail Sales Manager INTERFACED REPORT InterfaceFranny MD Social History Tobacco Use Types Packs/Day Years Used Date Smoking Tobacco: Never Assessed Sex Assigned at Date Recorded Not on file documented as of this encounter Plan of Treatment Not on filedocumented as of this encounter Visit Diagnoses Not on filedocumented in this encounter
--- OUTSIDE RECORDS SUMMARY | 2022-01-07 13:21 | XMS_ITS | Encounter Summary ---
:1980 Author Organization [place] Address [address] [facility] [place] [address] Care Team Providers Name Role Phone Unavailable Primary Care Provider Unavailable Encounter Details Date Type Department Care Team Description 04/07/2009 Office Visit-[facility] INTERFACE [facility] DEPT Candy Jensen Social History Tobacco Use Types Packs/Day Years Used Date Smoking Tobacco: Never Assessed Sex Assigned at Date Recorded Not on file documented as of this encounter Progress Notes Candy Jensen MD - 04/07/2009 2:20 PM CST Pmo Business Analyst: Candy Jensen Status: Final Encounter: 07 Apr [...] By: Candy Gutierrez M.D.,Resident; 04/07/2009 5:47 PM BAKESHOP CLEANER; Author. Signed By: Cindy Pope M.D.; 04/07/2009 9:21 PM BAKESHOP CLEANER; Author. documented in this encounter Plan of Treatment Not on filedocumented as of this encounter Visit Diagnoses Not on filedocumented in this encounter
--- OUTSIDE RECORDS SUMMARY | 2022-01-07 13:21 | XMS_ITS | Encounter Summary ---
:1980 Author Organization [place] Address [address] [facility] [place] [address] Care Team Providers Name Role Phone Unavailable Primary Care Provider Unavailable Encounter Details Date Type Department Care Team Description 05/18/2009 Office Visit-[facility] INTERFACE [facility] DEPT Candy Jensen Social History Tobacco Use Types Packs/Day Years Used Date Smoking Tobacco: Never Assessed Sex Assigned at Date Recorded Not on file documented as of this encounter Progress Notes Candy Jensen MD - 05/18/2009 4:00 PM CDT Manager Of Program: Candy Jensen Status: Final Encounter: 18 May [...] on the face. The patient was given [id number] mg daily, she had been using it [...] By: Candy Jensen M.D.,Resident; 05/21/2009 3:59 PM CUT OFF MACHINE OPERATOR; Author. Signed By: Keri Elias M.D.; 05/25/2009 8:28 AM CUT OFF MACHINE OPERATOR; Author. documented in this encounter Plan of Treatment Not on filedocumented as of this encounter Visit Diagnoses Not on filedocumented in this encounter
--- OUTSIDE RECORDS SUMMARY | 2022-01-07 13:21 | XMS_ITS | Encounter Summary ---
:1980 Author Organization [place] Address [address] [facility] [place] [address] Care Team Providers Name Role Phone Unavailable Primary Care Provider Unavailable Encounter Details Date Type Department Care Team Description 06/24/[address] [facility] Bebeto Roth MD [facility] Results [address] [place], [place] [phone] (Wo rk) Social History Tobacco Use Types [...]
--- OUTSIDE RECORDS SUMMARY | 2022-01-07 13:21 | XMS_ITS | Encounter Summary ---
:1980 Author Organization [place] Address [facility], [facility] [place] [address] Care Team Providers Name Role Phone Unavailable Primary Care Provider Unavailable Encounter Details Date Type Department Care Team Description 06/30/2009 Results Only [facility] Poll y, Bebeto Hartman MD Radiology Results [address] [place], [place] [phone] (Wo rk) Social History Tobacco Use Types [...]
--- OUTSIDE RECORDS SUMMARY | 2022-01-07 13:21 | XMS_ITS | Encounter Summary ---
:1980 Author Organization [place] Address [address] [facility] [place] [address] Care Team Providers Name Role Phone Unavailable Primary Care Provider Unavailable Encounter Details Date Type Department Care Team Description 05/18/2009 Office Visit-[facility] INTERFACE [facility] DEPT Provider, [facility] Nurs e Social History Tobacco Use Types Packs/Day Years Used Date Smoking Tobacco: Never Assessed Sex Assigned at Date Recorded Not on file documented as of this encounter Progress Notes Provider, [facility] Nurse - 05/18/2009 4:00 PM CDT Product Development Technician: Nelson Holliday Status: Final Encounter: 18 May 2009 Type: FM Letters [employer] Letters Ms. AZUL FORRESTER [address] [place] [address] May 18, 2009 Dear Ms. AZUL FORRESTER [...] PAP NIL Patient Name: AZUL FORRESTER MR#: [id number] Specimen #: [id number] Collected: 04/07/2009 Received: 04/08/2009 Reported: 04/09/2009 11:39 Ordering Phy(s): JULES CAMPUZANO SPECIMEN/STAIN PROCESS: Pap thin layer prep screening (Sure[facility]) Pap-Cyto x 1, Digene Reflex HPV x 1 SOURCE: Cervical Pap thin layer prep screening ([facility]) SPECIMEN ADEQUACY: Satisfactory for evaluation. -Transformation zone component present. CYTOLOGIC INTERPRETATION: Negative for Intraepithelial Lesion or Malignancy Electronically signed out by: APOLLO Moulton (ASCP) Processed and screened at [facility] CLINICAL HISTORY: LMP: 03/30/09 TESTING LAB LOCATION: [facility], [address] [address] COLLECTION SITE: Client: [facility] Location: [facility]. Signature Signed By: Nelson Holliday [facility]; 05/18/2009 3:46 PM NEUROLOGY TECHNICIAN. documented in this encounter Plan of Treatment Not on filedocumented as of this encounter Visit Diagnoses Not on filedocumented in this encounter
--- OUTSIDE RECORDS SUMMARY | 2022-01-07 13:21 | XMS_ITS | Encounter Summary ---
:1980 Author Organization [place] Address [facility] [place] [address] Care Team Providers Name Role Phone Unavailable [...] 12:00 AM Re sults for this SCREEN BURLAP ROLL COVERER procedure are i n the results section. documented in this encounter Results A THIN LAYER PAP SCREEN (04/07/2009 12:00 AM BURLAP ROLL COVERER) Component Value Ref Test Analysis Performed At [facility] Range Method Time Signature PAP NIL COPATH Copath Report COPATH Patient Name: AZUL FORRESTER MR#: [id number] Specimen #: [id number] Collected: 04/07/2009 Received: 04/08/2009 Reported: 04/09/2009 11:39 [...] APOLLO Moulton (ASCP) Processed and screened at [facility] diane [facility] CLINICAL HISTORY: LMP: 03/30/09 TESTING LAB LOCATION: [facility], [address] ??[phone] COLLECTION SITE: Client: ??[facility] Location: [facility] (B) Specimen (Source) Anatomical Collection Method Collection Time Re ceived Time Location / / Volume Laterality 04/07/2009 04/08/2009 10:1 0 AM BURLAP ROLL COVERER Jules Campuzano LABORATORY Performing Organization Address City/State/ZIP Code Phon e Number COPATH documented in this encounter Visit Diagnoses Not on filedocumented in this encounter
--- OUTSIDE RECORDS SUMMARY | 2022-01-07 13:21 | XMS_ITS | Encounter Summary ---
:1980 Author Organization [place] Address [facility] [place] [address] Care Team Providers Name Role Phone Unavailable Primary Care Provider Unavailable Encounter Details Date Type Department Care Team Description 10/08/2009 Historic Results INTERFACED REPORT Yuri Gray MD [address] [facility] [place] [address] (Wo rk) Social History Tobacco [...] LAB - BLOOD ORDERABLES Performing Organization Address City/State/[facility] Code Phon e Number MISYS INR (10/08/2009 [...]
--- OUTSIDE RECORDS SUMMARY | 2022-01-07 13:21 | XMS_ITS | Encounter Summary ---
:1980 Author Organization [place] Address [address] [place] [address]. [place] [address] Care Team Providers Name Role Phone Unavailable Primary Care Provider Unavailable Encounter Details Date Type Department Care Team Description 07/01/2009 Office Visit-[facility] Orthopaedic Clinic Bebeto Roth MD [address] 1[address] Floor, [phone] [place] [phone] Social History Tobacco Use Types Packs/Day Years Used Date Smoking Tobacco: Never Assessed Sex Assigned at Date Recorded Not on file documented as of this encounter Progress Notes Bebeto Roth - 07/01/2009 10:24 AM CDT Professor Of Theology: Bebeto Roth Status: Final - Signature Encounter: 01 Jul 2009 Type: U Ortho Letter Department of Orthopaedic Surgery Administration: Suite [facility], [address] [place] [address] or [phone] Appointments [email or web address] Mail Address: [place] [address], [address] [place] [address] Shmuel Ruiz MD General Orthopaedics Marcella Wilson [...] Pediatric July 01, 2009 Azul Garg [address] [facility] [place] [address] RE: Azul [place] : DOS: July 01, [...] Service DP:11 cc: Candy Jensen MD, Resident [facility] [address] [place] [address] Electronically signed by:Bebeto Roth M.D. Jul 08 2009 9:14AM COORDINATE MEASURING MACHINE PROGRAMMER documented in this encounter Plan of Treatment Not on filedocumented as of this encounter Visit Diagnoses Not on filedocumented in this encounter
--- OUTSIDE RECORDS SUMMARY | 2022-01-07 13:21 | XMS_ITS | Encounter Summary ---
:1980 Author Organization [place] Address [address] [place] [address]. [place] [address] Care Team Providers Name Role Phone Unavailable Primary Care Provider Unavailable Encounter Details Date Type Department Care Team Description 06/24/2009 Office Visit-[facility] Orthopaedic Clinic Bebeto Rothide Renzo Hartman MD [address] Floor, [address] [place] [phone] Social History Tobacco Use Types Packs/Day Years Used Date Smoking Tobacco: Never Assessed Sex Assigned at Date Recorded Not on file documented as of this encounter Progress Notes Bebeto Roth - 06/24/2009 8:00 AM CDT Lead Atg Developer: Bebeto Roth Status: Final - Signature Encounter: 24 Jun 2009 Type: U Ortho Visit Department of Orthopaedic Surgery Administration: [address], [address] [place] [address] or [phone] Appointments [email or web address] Mail Address: [address], [address] [place] [address] Shmuel Ruiz MD General Orthopaedics Marcella Wilson MD Hand, Wrist, Elbow Quyen Simms MD Sports Medicine - Knee Adult Reconstruction - Knee Clem Bower MD Shoulder Georgi Cross MD Oncology and Adult Reconstruction Aba Burgos MD Oncology Martin Sheffield MD Professor Emeritus Evan Guzmán MD, PhD Shoulder/Sports Medicine Katheryn MustafaPDion. Foot and Ankle Neo Mccord MD Joint [...] 06/24/2009 REFERRING PHYSICIAN: Candy Gutierrez M.D., of [facility]. CHIEF COMPLAINT: Low back pain and [...] who has done adjustments. 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 She lives with her mother. She has [...] Service DP:11 cc: Candy Gutierrez M.D., Resident [facility] Electronically signed by:Bebeto Roth M.D. Jun 25 2009 2:45PM CONSTRUCTION TRADES TEACHER documented in this encounter Plan of Treatment Not on filedocumented as of this encounter Visit Diagnoses Not on filedocumented in this encounter
--- OUTSIDE RECORDS SUMMARY | 2022-01-07 13:21 | XMS_ITS | Encounter Summary ---
:1980 Author Organization [place] Address [facility] [place] [address] Care Team Providers Name Role Phone Unavailable Primary Care Provider Unavailable Encounter Details Date Type Department Care Team Description 10/08/2009 Office Visit-[facility] INTERFACE [facility] DEPT Yuri Gray MD [address] [place], [place] [address] (Wo rk) Social History Tobacco Use Types Packs/Day Years Used Date Smoking Tobacco: Never Assessed Sex Assigned at Date Recorded Not on file documented as of this encounter Progress Notes Yuri Gray - 10/08/2009 4:00 PM CDT Tree And Shrub Worker: Yuri Gray Status: Final Encounter: 08 Oct [...] TABLET EVERY MORNING NEEDED.; Rx Saline Nasal [place] 0.65 % Solution;USE 1 SPRAY IN EACH NOSTRIL TWICE DAILY.; Rx Tretinoin 0.025 % Cream;APPLY SPARINGLY TO AFFECTED AREA(S) ONCE DAILY AT BEDTIME.; Rx AAA-MED RECONCILE;per pt.; RPT. 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 Vital Signs Recorded by [email or web address] on 08 Oct 2009 04:07 PM BP:118/85, LUE, Sitting, HR: 94 b/min, L Radial, Normal, Temp: 98.3 F, Oral, Height: 61.5 in, Weight: 153.6 lb, BMI: 28.6 kg/m2. Recorded by [email or web address] on 08 Oct 2009 04:14 PM BP:121/82, LUE, Sitting. SOAP HPI This 29 year old female presents as an established patient of Dr. JNONY RUIZ,[facility] here to do [...] as per form. Will fax results to [phone] as per patients wish. Patient denied genitourinary [...] By: Yuri Gray MD,Resident; 10/09/2009 3:48 PM ENTRY LEVEL ASSISTANT MANAGER; Author. Signed By: Keri Elias M.D.; 10/09/2009 3:52 PM ENTRY LEVEL ASSISTANT MANAGER; Author. documented in this encounter Plan of Treatment Not on filedocumented as of this encounter Visit Diagnoses Not on filedocumented in this encounter
--- OUTSIDE RECORDS SUMMARY | 2022-01-07 13:21 | XMS_ITS | Encounter Summary ---
:1980 Author Organization [place] Address [address] [facility] [place] [address] Care Team Providers Name Role Phone Unavailable Primary Care Provider Unavailable Encounter Details Date Type Department Care Team Description 09/22/2009 Office Visit-[facility] INTERFACE P DEPT Amanda Brown MD [facility] [address] [place], [place] [phone] (Wo rk) Social History Tobacco Use Types Packs/Day Years Used Date Smoking Tobacco: Never Assessed Sex Assigned at Date Recorded Not on file documented as of this encounter Progress Notes Amanda Brown - 09/22/2009 9:40 AM CDT Political Anthropologist: Kevin Amanda Status: Final Encounter: 22 Sep [...] TABLET EVERY MORNING NEEDED.; Rx Saline Nasal [place] 0.65 % Solution;USE 1 SPRAY IN EACH [...] of exam: 09/22/09 Surgery Date: 10/13/09 Location: [place] Pre-op diagnosis: Scoliosis Chief Complaint: Pain HPI: [...] By: Amanda Brown MD,Resident; 09/22/2009 3:16 PM DESIGN CELL ENGINEER; Author. Signed By: Luigi Solano ; 09/22/2009 9:41 PM DESIGN CELL ENGINEER. documented in this encounter Plan of Treatment Not on filedocumented as of this encounter Visit Diagnoses Not on filedocumented in this encounter
--- OUTSIDE RECORDS SUMMARY | 2022-01-07 13:21 | XMS_ITS | Encounter Summary ---
:1980 Author Organization [place] Address [address] [facility] [place] [address] Care Team Providers Name Role Phone Unavailable [...] 04/07/2009 3:27 PM Results for this PCR DRILL RUNNER procedure are i n the results section. HIV 1 AND 2 ANTIBODY Routine 04/07/2009 3:27 PM R esults for this (QUEST) DRILL RUNNER procedure are i n the results section. HEPATITIS C ANTIBODY Routine 04/07/2009 3:27 PM R esults for this DRILL RUNNER procedure are i n the results section. HEPATITIS B SURFACE Routine 04/07/2009 3:27 PM Re sults for this ANTIBODY DRILL RUNNER procedure are i n the results section. HEPATITIS B SURFACE Routine 04/07/2009 3:27 PM Re sults for this ANTIGEN DRILL RUNNER procedure are i n the results section. CHLAMYDIA TRACHOMATIS Routine 04/07/2009 3:27 PM Results for this PCR DRILL RUNNER procedure are i n the results section. documented in this encounter Results Chlamydia trachomatis PCR (04/07/2009 3:27 PM DRILL RUNNER) Component Value Ref Test Analysis Performed At [facility] Range Method Time Signature Specimen Cervical MISYS Description Chlamydia Negative for C. MISYS Trachomatis PCR trachomatis rRNA by mobile architect mediated amplification. Comment: A negative result by mobile architect medi ated amplification does not preclude the presence of C. trachomatis infection be cause results are dependent on proper and adequate collection, absence of inh ibitors, and sufficient rRNA to be detected. Specimen Anatomical Collection Method Collection Time Receive d Time (Source) Location / / Volume Laterality 04/07/2009 3:27 PM 0 3:32 DRILL RUNNER PM DRILL RUNNER Candy Jensen LAB - MICRO GENERAL ORDERABL ES Performing Organization Address [facility] Code Phon e Number MISYS Neisseria gonorrhoeae PCR (04/07/2009 3:27 PM DRILL RUNNER) [facility] Method Time Signature Specimen Cervical MISYS Descrip N Gonorrhea Negative for N. MISYS PCR gonorrhoeae rRNA by mobile architect mediated amplification. Comment: A negative result by mobile architect medi ated amplification does not preclude the presence of N. gonorrhoeae infection be cause results are dependent on proper and adequate collection, absence of inh ibitors, and sufficient rRNA to be detected. Specimen Anatomical Collection Method Collection Time Receive d Time (Source) Location / / Volume Laterality 04/07/2009 3:27 PM 0 3:32 DRILL RUNNER PM DRILL RUNNER Candy Jensen LAB - MICRO GENERAL ORDERABL ES Performing Organization Address [facility] Phon e Number MISYS Hepatitis B surface antibody (04/07/2009 3:27 PM DRILL RUNNER) athologist Signature Hep B Surface 993.0 MISYS Leatha Comment: Positive, Patient is considered to be im mune to infection with hepatitis B when the value is greater than or equal to 1 2.0 mlU/mL. Specimen Anatomical Collection Method Collection Time Receive d Time (Source) Location / / Volume Laterality 04/07/2009 3:27 PM 0 3:32 DRILL RUNNER PM DRILL RUNNER Candy Odellkell Howard LAB - BLOOD ORDERABLES Performing Organization Address [facility]/ZIP Code Phon e Number MISYS Hepatitis B surface antigen (04/07/2009 3:27 PM DRILL RUNNER) athologist Signature Hep B Surface Negative NEG MISYS Agn Specimen Anatomical Collection Method Collection Time Receive d Time (Source) Location / / Volume Laterality 04/07/2009 3:27 PM 0 3:32 DRILL RUNNER PM DRILL RUNNER Candy Esther Christenboodaniella LAB - BLOOD ORDERABLES Performing Organization Address [facility] Phon e Number MISYS Hepatitis C antibody (04/07/2009 3:27 PM DRILL RUNNER) athologist Signature Hepatitis C Negative NEG MISYS Antibody Specimen Anatomical Collection Method Collection Time Receive d Time (Source) Location / / Volume Laterality 04/07/2009 3:27 PM 0 3:33 DRILL RUNNER PM DRILL RUNNER Candy Jensen LAB - BLOOD ORDERABLES Performing Organization Address [facility] Phon e Number MISYS HIV 1 and 2 Antibody (04/07/2009 3:27 PM DRILL RUNNER) athologist Signature HIV 1&2 Negative NEG MISYS Antibody Specimen Anatomical Collection Method Collection Time Receive d Time (Source) Location / / Volume Laterality 04/07/2009 3:27 PM 0 3:33 DRILL RUNNER PM DRILL RUNNER Candy Worthyaj LAB - BLOOD ORDERABLES Performing Organization Address [facility] Phon e Number MISYS documented in this encounter Visit Diagnoses Not on filedocumented in this encounter
--- OUTSIDE RECORDS SUMMARY | 2022-01-07 13:21 | XMS_ITS | Encounter Summary ---
:1980 Author Organization [place] Address [address] [facility] [place] [address] Care Team Providers Name Role Phone Unavailable Primary Care Provider Unavailable Encounter Details Date Type Department Care Team Description 06/24/2009 Office Visit-[facility] INTERFACE [facility] DEPT Provider, [facility] Nurs e Social History Tobacco Use Types Packs/Day Years Used Date Smoking Tobacco: Never Assessed Sex Assigned at Date Recorded Not on file documented as of this encounter Progress Notes Provider, [facility] Nurse - 06/24/2009 8:00 AM CDT Accounts Payable Processor: Nasrin Demarco Status: Final Encounter: 24 Jun [...] By: Nasrin Demarco RN; 06/24/2009 4:16 PM SUPERVISOR KENNEL. Provider, [facility] Nurse - 06/24/2009 8:00 AM CDT Accounts Payable Processor: Melvi Juárez Status: Final Encounter: 24 Jun 2009 Type: Rooming Note Reason For Visit Scoliosis eval. Do you have any other appointments, tests or procedures within the [employer] system for this same day? No Occupation: [...] TABLET EVERY MORNING NEEDED.; Rx Saline Nasal [place] 0.65 % Solution;USE 1 SPRAY IN EACH NOSTRIL TWICE DAILY.; Rx Tretinoin 0.025 % Cream;APPLY SPARINGLY TO AFFECTED AREA(S) ONCE DAILY AT BEDTIME.; Rx AAA-MED RECONCILE;per pt.; RPT. Med list offered and patient declined. Signature Signed By: Melvi Juárez LP; 06/24/2009 8:05 AM SUPERVISOR KENNEL. documented in this encounter Plan of Treatment Not on filedocumented as of this encounter Visit Diagnoses Not on filedocumented in this encounter
--- OUTSIDE RECORDS SUMMARY | 2022-01-07 13:21 | XMS_ITS | Encounter Summary ---
:1980 Author Organization [place] Address [facility] [place] [address] Care Team Providers Name Role Phone Unavailable Primary Care Provider Unavailable Encounter Details Date Type Department Care Team Description 06/30/2009 Office Visit-[facility] Orthopaedic Clinic Unknown, Provider [facility] 1st Floor, [address] [facility] [place] [phone] Social History Tobacco Use Types Packs/Day Years Used Date Smoking Tobacco: Never Assessed Sex Assigned at Date Recorded Not on file documented as of this encounter Progress Notes Unknown, Provider - 06/30/2009 8:19 AM CDT Jewel Bearing Grinder: Rhonda Bush Status: Final - Signature Encounter: 30 Jun 2009 Type: [facility] [place] Note Fax received from [employer] insurance for Approval on Fusion of Spine Lumbar surgery. Code [id number] Electronically signed by:Rhonda Bush Jun 30 2009 8:20AM FLYING I INSTRUCTOR Administrative documented in this encounter Plan of Treatment Not on filedocumented as of this encounter Visit Diagnoses Not on filedocumented in this encounter
--- OUTSIDE RECORDS SUMMARY | 2022-01-07 13:21 | XMS_ITS | Encounter Summary ---
:1980 Author Organization [place] Address [address] [facility] [place] [address] Care Team Providers Name Role Phone Unavailable Primary Care Provider Unavailable Encounter Details Date Type Department Care Team Description 10/11/2009 Historic Results Orthopaedic Clinic Bebeto Roth [place] Renzo Hartman MD [place] [address] 1st Floor, [address] [place] [address] [address] [address] [place], [place] [address] Social History Tobacco Use [...] Crossmatch red cells (10/11/2009 9:21 AM CDT) [facility] Method Time Signature ABO O MISYS RH(D) Pos MISYS Antibody Neg MISYS Screen Blood Red Cells MISYS Component Type Units Ordered 2 MISYS Specimen 10/14/2009 MISYS Expires Unit Number [id number] MISYS Blood Red Blood MISYS Component Cells Type Leukocyte Reduced Status of No longer MISYS Unit available 10/15/2009 0300 Unit Number [id number] MISYS Blood Red Blood MISYS Component Cells [...]
== END 2022-01-07 13:02 | disposition home or self-care (01) ==
LOC: US 13:02
PROVIDERS: Visit Provider Physician Assistant
DX: O24.419 Gestational diabetes mellitus in pregnancy, unspecified control (principal); Z3A.35 35 weeks gestation of pregnancy
CPT/HCPCS: 76816; 76819

== ENCOUNTER 2022-01-07 14:19 | Outpatient (CLI) | payer OTHER, SELFPAY ==
--- OUTSIDE RECORDS SUMMARY | 2022-01-07 14:34 | XMS_ITS | Encounter Summary ---
:1980 Author Organization [employer] Address [address] [place] [address] Care Team Providers Name Role Phone Zion Sorto MD Primary Care Provider Reason for Visit Reason Comments Vaginal Discharge Whit colred discharge; OTC y east infect med did not help. Also itching, notes some bumps. Encounter Details Date Type Department Care Team Description 03/05/2011 Office Visit Urgent Care [facility] [place] BV (bacterial vaginosis) (Pr imary Dx); [address] [facility] Vaginitis; [place] [address] state, incidental; [phone] Dermatitis Social History Tobacco Use Types Packs/Day Years Used Date Smoking Tobacco: Never Smokeless Tobacco: Never Alcohol Use Standard Drinks/Week Comments Not Asked 0 (1 standard drink = 0.6 oz pure alcoho l) Sex Assigned at Date Recorded Not on file documented as of this encounter Last Filed Vital Signs Vital Sign Reading Time Taken Comments Blood Pressure 126/82 03/05/2011 4:30 PM BINDERY MACHINE FEEDER OFFBEARER Pulse 96 03/05/2011 4:30 PM BINDERY MACHINE FEEDER OFFBEARER Temperature 36.8 ??C (98.2 ??F) 03/05/2011 4:30 PM BINDERY MACHINE FEEDER OFFBEARER Respiratory Rate 20 03/05/2011 4:30 PM BINDERY MACHINE FEEDER OFFBEARER Oxygen Saturation - - Inhaled Oxygen Concentration - - Weight 70.5 kg (155 lb 6.4 oz) 03/05/2011 4:30 PM BINDERY MACHINE FEEDER OFFBEARER Height 160 cm (5' 3) 03/05/2011 4:30 PM BINDERY MACHINE FEEDER OFFBEARER Body Mass Index 27.53 03/05/2011 4:30 PM BINDERY MACHINE FEEDER OFFBEARER documented in this encounter Patient Instructions Patient InstructionsBraShirin christopher, BATH ATTENDANT, PLANT OPERATIONS ENGINEER - 03/05/2011 5:00 PM BINDERY MACHINE FEEDER OFFBEARER Return if symptoms worsen, no improvement in 1 week or not completely resolved in 2 weeks. ERY MACHINE FEEDER OFFBEARER documented in this encounter Progress Notes Shirin [...] the patient acknowledges understanding. Shirin Hernandez NP ERY MACHINE FEEDER OFFBEARER documented in this encounter Nursing Notes 03/05/2011 4:20 PM CST >> Faizan Clark LPN Sat Mar 05, 2011 4:35 PM Faizan Clark LPN documented in this encounter Plan of Treatment Not on filedocumented as of this encounter Procedures Procedure Name Priority Date/Time Associated Diagnosis Comme nts VAGINAL WET PREP Waiting 03/05/2011 4:48 PM Vaginitis Resul ts for this BINDERY MACHINE FEEDER OFFBEARER procedure are i n the results section. documented in this encounter Results (ABNORMAL) WET PREP, VAGINAL (03/05/2011 4:48 PM BINDERY MACHINE FEEDER OFFBEARER) [facility] Method Time Signature Epithelials Moderate [facility] % Atrophic 0 [facility] Epith WBC'S Few [facility] Bacteria Moderate [facility] Clue Cells Moderate [facility] Trichomonas 0 [facility] Yeast 0 [facility] pH 5.0 (H) 3.5 - 4.5 [facility] Specimen Anatomical Collection Method Collection Time Receive d Time (Source) Location / / Volume Laterality 03/05/2011 4:48 PM 2 4:56 BINDERY MACHINE FEEDER OFFBEARER PM BINDERY MACHINE FEEDER OFFBEARER Shirin Nascimento APRN, CNP LAB_1 Performing Organization Address City/State/ZIP Code Phon e Number [facility] [phone] [facility] [address] [address] documented in this encounter Visit Diagnoses Diagnosis BV (bacterial vaginosis) - Primary Vaginitis and vulvovaginitis, unspecifie d Vaginitis Vaginitis and vulvovaginitis, unspecifie d state, incidental Dermatitis Contact dermatitis and other eczema, due to unspecified cause documented in this encounter Care Teams Finish Mender Relationship Specialty Start Date End Date Zion Sorto MD PCP - General 07/16/04 06/04/14 [address] [address] [facility] [place] [address] documented as of this encounter
--- OUTSIDE RECORDS SUMMARY | 2022-01-07 14:34 | XMS_ITS | Encounter Summary ---
:1980 Author Organization [employer] Address [address] [place] [address] Care Team Providers Name Role Phone Zion Sorto MD Primary Care Provider Encounter Details Date Type Department Care Team Description 04/15/2017 yossi Delgado [phone] Social History Tobacco Use Types Packs/Day Years [...] bacterial vaginosis. I sent a prescription to [facility]. Make sure to take all of the [...] 5 days Note: Refills: None Sent To: [employer] [phone] [phone] Treatment Plan Self Care Tip Topics Avoid [...] None Current orders metronidazole (metronidazole) Allergies None [facility] [facility] [place] Information [facility] [employer] We are an online clinic open 05/09. If you have any questions or comments about this visit, please call or email [email or web address] ITAL SECURITY OFFICER documented in this encounter Plan of Treatment Not on filedocumented as of this encounter Visit Diagnoses Not on filedocumented in this encounter Care Teams Sample Dye Mixer Relationship Specialty Start Date End Date Zion Sorto MD PCP - General 10/15/[address] [place] [address] documented as of this encounter
--- OUTSIDE RECORDS SUMMARY | 2022-01-07 14:34 | XMS_ITS | Encounter Summary ---
:1980 Author Organization [employer] Address [address] [place] [address] Care Team Providers Name Role Phone Zion Sorto MD Primary Care Provider Reason for Visit Reason Comments BLADDER INFECTION urgency but then there is no t urine when she goes, sx sx yesterday. INFECTION, VAGINAL odor and discharge. Encounter Details Date Type Department Care Team Description 08/10/2011 Office Visit [facility] [place] UTI (urinary tract infection ) (Primary Dx); [address] [facility] Dysuria; [place] [address] Vaginitis; [phone] BV (bacterial v aginosis); state, incidental Social [...] She is getting [facility]. OBJECTIVE: BP 110/73 Pulse 104 Temp(Src) 97.9 [...] Component Value Ref Test Analysis Performed At [facility] Range Method Time Signature Specimen Urine [facility] Description Midstream Special Sensitivity [facility] Requests Ordered Culture > 100,000 [facility] col/ml Klebsiella pneumoniae Report Status Final [facility] 08/12/2011 Organism > 100,000 [facility] col/ml Klebsiella pneumoniae Specimen Anatomical Collection Method [...] Nascimento APRN, CNP LAB_1 Performing Organization Address [facility] Phon e Number [employer] [phone] [address] (ABNORMAL) WET PREP, VAGINAL (08/10/2011 5:56 PM CDT) Component Value Ref Test Analysis Performed At [facility] Method Time Signature Clue Cells Clue Cells NCLUE [facility] Present (A) Trichomonas No Trichomonas NTRIC [facility] Seen Yeast No Yeast Found YN [facility] pH 5.0 (H) 3.5 - [facility] 4.5 Specimen Anatomical Collection Method Collection Time Receive d Time (Source) Location / / Volume Laterality 08/10/2011 5:56 PM 2 6:00 CDT PM CDT Shirin Nascimento APRN, LADI LAB_1 Performing Organization Address [facility] Phon e Number [facility] [phone] [address] UA MICRO (08/10/2011 5:09 PM CDT) [employer] Method Time Signature RBC'S 10-20 0 - [...] Nascimento APRN, CNP LAB_1 Performing Organization Address [facility] Phon e Number [place] [employer] [phone] [facility] [address] [place] [address] (ABNORMAL) UA MICRO IF (08/10/2011 5:09 PM CDT) [facility] Method Time Signature Urine Color Yellow [...] Nascimento APRN, CNP LAB_1 Performing Organization Address [facility] Phon e Number [place] [employer] [phone] [address] documented in this encounter Visit Diagnoses Diagnosis UTI (urinary tract infection) - Primary Urinary tract infection, site not specif ied Dysuria Vaginitis Vaginitis and vulvovaginitis, unspecifie d BV (bacterial vaginosis) Vaginitis and vulvovaginitis, unspecifie d state, incidental documented in this encounter Care Teams Land Classifier Relationship Specialty Start Date End Date Zion Sorto MD PCP - General 07/16/04 06/04/14 [address] [address] [facility], [place] [id number] documented as of this encounter
--- OUTSIDE RECORDS SUMMARY | 2022-01-07 14:34 | XMS_ITS | Encounter Summary ---
:1980 Author Organization [employer] Address [address] [place] [address] Care Team Providers Name Role Phone Zion Sorto MD Primary Care Provider Encounter Details Date Type Department Care Team Description 08/27/2013 Office Visit [facility] [place] Bacterial vaginitis (Primary Dx); [address] Vaginal discharge [place], [place] [id number] Social History Tobacco Use Types Packs/Day Years [...] Where can you learn more? Go to [employer] and enter [id number] in the search box. Last Revised: June 29, 2012 ?? [id number] [employer], [email or web address]. documented in this encounter Progress Notes Edinson [...] WET PREP, VAGINAL (08/27/2013 8:01 PM CDT) [facility] Method Time Signature Clue Cells Clue [...] 08/27/2013 8:05 PM C DT [facility], [address] [place] [address] Edinson Bryant MD LAB_1 Performing Organization Address City/State/ZIP Code Phon e Number [facility] [phone] documented in this encounter Visit Diagnoses Diagnosis Bacterial vaginitis - Primary Vaginitis and vulvovaginitis, unspecifie d Vaginal discharge Leukorrhea, not specified as infective documented in this encounter Care Teams Hob Machine Operator Relationship Specialty Start Date End Date Zion Sorto MD PCP - General 07/16/04 06/04/14 [address] [address] [place] [address] documented as of this encounter
--- OUTSIDE RECORDS SUMMARY | 2022-01-07 14:34 | XMS_ITS | Encounter Summary ---
:1980 Author Organization [employer] Address [address] [place] [address] Care Team Providers Name Role Phone Zion Sorto MD Primary Care Provider Reason for Visit Reason Comments FLOATERS Encounter Details Date Type Department Care Team Description 04/05/2014 Telephone [facility] y No Primary/Referring, FLOATERS [address] [place], [place] [address] Social History Tobacco Use Types Packs/Day Years Used Date Smoking Tobacco: Never Smokeless Tobacco: Never Alcohol Use Standard Drinks/Week Comments Not Asked 0 (1 standard drink = 0.6 oz pure alcoho l) Sex Assigned at Date Recorded Not on file documented as of this encounter Nursing Notes Ursula Aguillon - 04/07/2014 9:00 AM CST scheduled IAMENTARY LIBRARIAN Kristin Diamond - 04/05/2014 11:10 AM CST Patient would like appointment with: Any Provider Patient requesting appointment for: FLOATERS, ROUTINE EYE EXAM Wants/Needs to be seen within: AROUND Monday04/11/2014 Additional Comments: NO Add Is it okay to leave detailed message on your voicemail? YES Kristin Diamond IAMENTARY LIBRARIAN documented in this encounter Plan of Treatment Not on filedocumented as of this encounter Visit Diagnoses Not on filedocumented in this encounter Care Teams Globe Tester Relationship Specialty Start Date End Date Zion Sorto MD PCP - General 07/16/04 06/04/14 [address] [place] [address] documented as of this encounter
--- OUTSIDE RECORDS SUMMARY | 2022-01-07 14:34 | XMS_ITS | Encounter Summary ---
:1980 Author Organization [employer] Address [address] [place] [address] Care Team Providers Name Role Phone Zion Sorto MD Primary Care Provider Encounter Details Date Type Department Care Team Description 04/30/2021 yossi Delgado [phone] Social History Tobacco Use Types Packs/Day Years [...] try an antibiotic. I sent a prescriptionto [facility] . I've also listed a few of [...] a full stomach. Refills: None Sent To: [facility] [address] [place], [place] [id number] Treatment Plan Self Care Tip Topics Drink [...] (minocycline) omeprazole (omeprazole) Allergies cephalexin (cephalexin), oral [facility] Information [facility] by [employer] We are an online clinic open 05/09. If you have any questions or comments about this visit, please call or email [email or web address]. FAMILY MEDICINEYOSSI PROVIDER - 04/30/2021 3:29 PM CDT yossi Treatment Plan Diagnosis Urinary Tract Infection Visit Date April 30, 2021 Azul Solis-Britany Date of : 84 Provider Kristina Diaz, Physician Baggage Smasher Note From Provider Javi Liang. Thank you for using [facility] today. I?? sorry to hear that you're [...] try an antibiotic. I sent a prescriptionto [facility] . I've also listed a few of [...] 7 days Note: Refills: None Sent To: [facility] [address] [place], [place] [phone] Treatment Plan Self Care Tip Topics Drink [...] (cephalexin) minocycline (minocycline) omeprazole (omeprazole) Allergies None [facility] Information [facility] [employer] We are an online clinic open 05/09. If you have any questions or comments about this visit, please call or email [email or web address]. documented in this encounter Plan of Treatment Not on filedocumented as of this encounter Visit Diagnoses Not on filedocumented in this encounter Care Teams Clinical Services Professional Relationship Specialty Start Date End Date Zion Sorto MD PCP - General 10/15/[address] [place] [id number] documented as of this encounter
--- OUTSIDE RECORDS SUMMARY | 2022-01-07 14:34 | XMS_ITS | Clinical Summary ---
:1980 Author Organization [employer] Address [address] [place] [address] Care Team Providers Name Role Phone Zion [...] for each transition of care or referral. [employer] Allergies No known active allergies Medications Medication [...] Active MG capsule times daily. 0 Active Amjnxjdc-Gqo-Rn-FA (PRE- FORMULA OR) insulin isophane (HUMULIN Inject [...] e / Group Dates [facility] [id number] Effective for C ommercial DENTAL PLAN [facility] all dates DENTAL [facility] SELF [id number] 2021-Pre Commercial MANAGED CARE sent [phone] [address] TIAN blue [address] (Home) [address] [phone] [place], [place] 0 (Work) [address] [employer], Personal/Famil Self 1980 [phone] [place] (Home) [place] [address] [employer], Personal/Famil Self 1980 [phone] [place] 0 (Home) [place] [address] [employer] Smart, Personal/Famil Self 1980 [phone] [place] [address] (Home) [place] [address] [employer], MVA/TPL Self 1980 [phone] [place] (Home) [place] [address] [employer], MVA/TPL Self 1980 [phone] [place] 0 (Home) [place] [address] Care Teams Hollow Ware Maker Relationship Specialty Start Date End Date Zion Sorto MD PCP - General 10/15/[address] [id number]
--- OUTSIDE RECORDS SUMMARY | 2022-01-07 14:34 | XMS_ITS | Encounter Summary ---
:1980 Author Organization [employer] Address [address] [place] [address] Care Team Providers Name Role Phone Zion Sorto MD Primary Care Provider Encounter Details Date Type Department Care Team Description 03/27/2021 yossi Delgado [phone] Social History Tobacco Use Types Packs/Day Years [...] better by using a special blend of ygyi-myi-bsrgwau products to reduce your pain and other [...] None Allergies None virtuwell Information virtuwell by [facility] We are an online clinic open 05/09. If you have any questions or comments about this visit, please call or email [email or web address]. TRUCTION SAFETY MANAGER documented in this encounter Plan of Treatment Not on filedocumented as of this encounter Visit Diagnoses Not on filedocumented in this encounter Care Teams Hiv/Aids Care Nurse Relationship Specialty Start Date End Date Zion Sorto MD PCP - General 10/15/15 [address] [facility] [place] [address] documented as of this encounter
--- OUTSIDE RECORDS SUMMARY | 2022-01-07 14:34 | XMS_ITS | Encounter Summary ---
:1980 Author Organization [facility] Address [address] [place] [address] Care Team Providers Name Role Phone Zion Sorto MD Primary Care Provider Encounter Details Date Type Department Care Team Description 01/04/2022 Telemedicine [facility] [address] Dago Irving MD Endocrinology [address] [place] [address] [place], [place] [address] [phone] Social History Tobacco Use Types Packs/Day Years [...] on filedocumented in this encounter Care Teams Spout Tender Relationship Specialty Start Date End Date Zion Sorto MD PCP - General 10/15/15 [address] [place], [place] [address] documented as of this encounter
--- OUTSIDE RECORDS SUMMARY | 2022-01-07 14:34 | XMS_ITS | Encounter Summary ---
:1980 Author Organization [employer] Address [address] [place] [address] Care Team Providers Name Role Phone Non Pn, Clinician MD Primary Care Provider Unavailable Reason for Visit Reason Comments Chest Pain Encounter Details Date Type Department Care Team Description 06/05/2014 [facility] Delfin Lynch MD Atypical chest pain; Center [address] Gastroesophageal reflux dise ase with esophagitis [address] [place] [address] [facility] [phone] ( [place]) [place] [address] [phone] Social History Tobacco Use Types Packs/Day Years [...] AM
Documentation filed: Charges VN Fransisca Davis, [facility] - 06/05/2014 5:58 PM CDT EC SW and SW Database Support approached the EC Physician to further discuss patient's concerns. EC Physician changed his mind about the consult and did not think that she would be receptive to obtaining resources on anxiety management. He declined the request for consult. [facility], [phone] pager documented in this encounter ED Notes [...] and the provider's statements to me. 06/05/2014 [facility] Delfin Lynch MD 06/05/14 3609 Rg Franco RN - 06/05/2014 6:15 PM [...] 06/05/2014 6:15 PM CDT Azul Garg Department: [facility] Date of Visit: 06/05/2014 [facility] [address] [place] [address] Diagnoses this visit Your diagnoses were Atypical chest pain and Inflammation of the esophagus. You were seen by You were seen by Delfin Lynch MD. Follow-up Information Follow up with Jannette Samaniego DO On 06/06/2014. Specialty: Family Medicine Why: @2:00PM Contact information: [address] [facility] [address] Follow up with [facility]. Specialty: Emergency Medicine Why: If symptoms worsen Contact information: [address] [place] [address] [phone] Discharge References/Attachments GERD (NEPALI) Appointments for Next 60 Days 06/06/2014 2:00 PM HOSPITAL DISCHARGE [place] [address] Family Medicine [[id number]] 30 min Please check in for your appointment with Jannette Samaniego in the [facility]. Please arrive 15 minutes prior to your [...] notice of cancellation. Take [address] to [facility]. Go east to [facility] 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 You may get the following medications from [...] contain Tylenol?? (acetaminophen), including Vicodin??, Tylenol #3??, [place]??, Lortab??, and Percocet??. You should not take [...] 06/05/2014 6:15 PM CDT Azul Garg Department: [facility] Date of Visit: 06/05/2014 [facility] [address] [place] [address] ` It is very important that you [...] you have any questions, call us at [phone]. I have received this information and understand [...] - 06/05/2014 4:20 PM CDT Performed at [facility], [facility] [place] [address] Delfin Lynch MD LAB_1 Performing Organization Address [...] - 06/05/2014 3:58 PM CDT Performed at [facility], [address] [place] [address] Delfin Lynch MD LAB_1 Performing Organization Address City/[facility]/ZIP Code Phon e Number HP CONVERSION ECG 12 Lead Outpatient (06/05/2014 1:56 PM CDT) P athologist Signature Ventricular Rate 112 BPM MUSE [facility] Atrial Rate 112 BPM [facility] P-R Interval 162 ms [facility] QRS Duration 84 ms [facility] QT 330 ms [facility] QTc 450 ms [facility] P [place] 51 degrees MUSE [facility] R [place] 70 degrees M[facility] T [place] 34 degrees M[facility] Specimen (Source) Anatomical Collection Method Collection Time Re ceived Time Location / / Volume Laterality 06/05/2014 1:56 PM CDT Narrative [facility] - 05/17/2019 11:58 AM CDT Sinus tachycardia Otherwise normal ECG No previous ECGs available Confirmed by DELFIN LYNCH ([id number]), non linear editor CARLY LY () on 06/05/2014 10:58:13 PM Procedure Note Epic, Internal Processing - 05/19/2019Fo rmatting of this note might be different from the original. Sinus tachycardia Otherwise normal ECG No previous ECGs available Confirmed by DELFIN LYNCH ([id number]), non linear editor CARLY LY () on 06/05/2014 10:58:13 PM Jose Alfredo Virk MD PN ECG ORDERABLES Performing Organization Address [facility] Phon e Number MUSE [facility] [address] [place] [address] documented in this encounter Visit Diagnoses Diagnosis [...] triage. documented in this encounter Care Teams Acid Purifier Relationship Specialty Start Date End Date Non Pn, Clinician, PCP - General 06/05/14 10/14/15 [place] [address] documented as of this encounter
--- OUTSIDE RECORDS SUMMARY | 2022-01-07 14:34 | XMS_ITS | Encounter Summary ---
:1980 Author Organization [employer] Address [address] [place] [address] Care Team Providers Name Role Phone Zion Sorto MD Primary Care Provider Reason for Visit Reason Comments UTI Encounter Details Date Type Department Care Team Description 11/07/2012 Office Visit [facility] Dysuria (Primary Dx) [address] [place] [address] Social History Tobacco Use Types [...] Kaylynn Barreto RN 11/08/2012, 4:57 PM Robbie Aanya - 11/07/2012 7:40 PM CDT Azul Garg [...] NEG [facility] Comment: Test Performed by Inspector General Mediated Amplification GC (N. gonorrhoeae) Negative NEG [facility] Comment: Test Performed by Inspector General Mediated Amplification Specimen Anatomical Collection Method Collection Time Receive d Time (Source) Location / / Volume Laterality 11/07/2012 7:03 PM 3 7:14 CDT PM CDT Narrative [facility] - 11/08/2012 4:47 PM C DT Performed at [facility], [address] [place] [address] ??[id number] Robbie Anaya MD LAB_1 Performing Organization Address City/[facility] Phon e Number [facility] [phone] WET PREP, VAGINAL (11/07/2012 7:03 PM CDT) [...] 11/07/2012 7:17 PM C DT Performed at [facility], [address] [place] [address] Robbie Anaya MD LAB_1 Performing Organization Address [facility] Phon e Number [facility] [phone] UA MICRO (11/07/2012 6:19 PM CDT) P [...] 11/07/2012 6:36 PM C DT Performed at [facility], [address] [place] [address] Robbie Anaya MD LAB_1 Performing Organization Address [facility] Phon e Number [facility] [phone] (ABNORMAL) UA MICRO IF (11/07/2012 6:19 PM [...] 11/07/2012 6:35 PM C DT Performed at [facility], [facility] [place] [address] Robbie Anaya MD LAB_1 Performing Organization Address [facility] Phon e Number [facility] [phone] documented in this encounter Visit Diagnoses Diagnosis Dysuria - Primary documented in this encounter Care Teams Produce Inspector Relationship Specialty Start Date End Date Zion Sorto MD PCP - General 07/16/04 06/04/14 [address], [place] [address] documented as of this encounter
--- OUTSIDE RECORDS SUMMARY | 2022-01-07 14:34 | XMS_ITS | Encounter Summary ---
:1980 Author Organization [employer] Address [address] [place] [address] Care Team Providers Name Role Phone Zion Sorto MD Primary Care Provider Reason for Visit Reason Comments APPOINTMENT REQUEST Referral for GDM Encounter Details Date Type Department Care Team Description 12/23/2021 Telephone [facility] 3800 Nurse, P3800 End APPOINTMENT REQUEST Endocrinology [address] (Referral for GDM) [address] [facility] [id number] Social History Tobacco Use Types Packs/Day Years Used Date Smoking Tobacco: Never Smokeless Tobacco: Never Alcohol Use Standard Drinks/Week Comments No 0 (1 standard drink = 0.6 oz pure alcoho l) Sex Assigned at Date Recorded Not on file documented as of this encounter Nursing Notes Nadya Parker - 12/23/2021 3:09 PM CST Faxed referral rec'd from [facility] Records sent to scan doc OROLOGICAL EQUIPMENT REPAIRER documented in this encounter Plan of Treatment Not on filedocumented as of this encounter Visit Diagnoses Not on filedocumented in this encounter Care Teams Tow Car Driver Relationship Specialty Start Date End Date Zion Sorto MD PCP - General 10/15/15 [address] [place] [address] documented as of this encounter
--- OUTSIDE RECORDS SUMMARY | 2022-01-07 14:34 | XMS_ITS | Encounter Summary ---
:1980 Author Organization [employer] Address [address] [place] [address] Care Team Providers Name Role Phone Zion Sorto MD Primary Care Provider Encounter Details Date Type Department Care Team Description 03/31/2021 yossi Delgado [phone] Social History Tobacco Use Types Packs/Day Years [...] scalp application. I sent a prescription to [email or web address] . I??e also listed some additional self-care [...] after 5 minutes. Refills: 1 Sent To: [facility] [address] [place], [place] [id number] Treatment Plan Self Care Tip Topics Using [...] a year, start a new interview on [employer] and we??l help create a new treatment plan for you. What to Watch Out For Give us a call if you experience: ??? Worsening rash ??? Yellow or white drainage ??? Red streaking from the site of the rash ??? Fevers My Conditions, Orders, Allergies as of March 31, 2021 Standard condition list None Current orders ketoconazole (ketoconazole) Allergies None [facility]fbucks Information [facility] We are an online clinic open 05/09. If you have any questions or comments about this visit, please call or email [email or web address] T OPERATOR documented in this encounter Plan of Treatment Not on filedocumented as of this encounter Visit Diagnoses Not on filedocumented in this encounter Care Teams Supervisor Rework Relationship Specialty Start Date End Date Zion Sorto MD PCP - General 10/15/[address] [place] [place] [address] documented as of this encounter
--- OUTSIDE RECORDS SUMMARY | 2022-01-07 14:34 | XMS_ITS | Encounter Summary ---
:1980 Author Organization [employer] Address [address] [place] [address] Care Team Providers Name Role Phone Zion Sorto MD Primary Care Provider Encounter Details Date Type Department Care Team Description 05/17/2021 yossi Delgado [phone] Social History Tobacco Use Types Packs/Day Years [...] your rash. I sent a prescription to [facility] . I've also listed a few of [...] face and genitalia Refills: 1 Sent To: [facility] [address] [place], [place] [id number] Treatment Plan Self Care Tip Topics Cold [...] (minocycline) omeprazole (omeprazole) Allergies cephalexin (cephalexin), oral [facility] [facility] Information [facility] We are an online clinic open 05/09. If you have any questions or comments about this visit, please call or email [email or web address] documented in this encounter Plan of Treatment Not on filedocumented as of this encounter Visit Diagnoses Not on filedocumented in this encounter Care Teams Event Marketing Representative Relationship Specialty Start Date End Date Zion Sorto MD PCP - General 10/15/[address] [place] [address] documented as of this encounter
--- OUTSIDE RECORDS SUMMARY | 2022-01-07 14:34 | XMS_ITS | Encounter Summary ---
:1980 Author [facility] Address [address] [place] [address] Care Team Providers Name Role Phone Zion Sorto MD Primary Care Provider Reason for Visit Reason Comments Dental Conversion [facility] EDR to [place] convers ion Encounter Details Date Type Department Care Team Description 07/21/2016 Dental Conversion [facility] DDS [address] [facility], [address] [place] [address] Social History Tobacco Use Types Packs/Day Years [...] Notes: 08/31/07 -- Fail; See contacts. LJL; MANAGER ANIMAL documented in this encounter Miscellaneous Notes Miscellaneous - Interface, In Edr Dental Conversion - 05/17/2013 12:00 AM CDT 05/17/2013: Email To OS: Azul MCCORMICK 1980 scheduled on 05/23/13 BARRETT dated 05/16/13 Thank you, [facility] [phone] Miscellaneous - Interface, In Edr Dental Conversion [...] on filedocumented in this encounter Care Teams Paver Relationship Specialty Start Date End Date Zion Sorto MD PCP - General 10/15/[address] [place] [address] documented as of this encounter
--- OUTSIDE RECORDS SUMMARY | 2022-01-07 14:34 | XMS_ITS | Encounter Summary ---
:1980 Author Organization [employer] Address [address] [place] [address] Care Team Providers Name Role Phone Zion Sorto MD Primary Care Provider Reason for Visit Reason Onset Date Comments OB EXAM,INITIAL 04/12/2011 Encounter Details Date Type Department Care Team Description 04/12/2011 Telephone [facility] Obstetrics and Bri Morris RN, OB EXAM,INITIAL Gynecology [facility] [address] [facility] [address] [place] [address] [place] [address] [phone] (Wo rk) Social History Tobacco Use Types Packs/Day Years Used Date Smoking Tobacco: Never Smokeless Tobacco: Never Alcohol Use Standard Drinks/Week Comments Not Asked 0 (1 standard drink = 0.6 oz pure alcoho l) Sex Assigned at Date Recorded Not on file documented as of this encounter Nursing Notes Anuja Paredse RN - 04/12/2011 2:45 PM CST Azul [...] every day. No cat Anuja Paredes RN [employer] GEAR CUSTODIAN Delvis Patiño - 04/12/2011 1:05 PM CST New pt pt has 1st Ob scheduled with Cleo Morris April 21 at 2:00 pm appt was made per online request ETIC GEAR CUSTODIAN documented in this encounter Plan of Treatment Not on filedocumented as of this encounter Visit Diagnoses Not on filedocumented in this encounter Care Teams Sales Vice President Relationship Specialty Start Date End Date Zion Sorto MD PCP - General 07/16/04 06/04/[address] [place] [address] documented as of this encounter
--- OUTSIDE RECORDS SUMMARY | 2022-01-07 14:34 | XMS_ITS | Encounter Summary ---
:1980 Author Organization [employer] Address [address] [place] [address] Care Team Providers Name Role Phone Non Pn, Clinician MD Primary Care Provider Unavailable Reason for Visit Reason Comments Follow-up Encounter Details Date Type Department Care Team Description 06/06/2014 Office Visit [facility] [address] Jannette Samaniego, Anne Marie blue (Primary Dx); Family Medicine DO Gastroesophageal reflux disease without esophagitis; [address] [place] [address] [place] [facility] [address] [phone] Social History Tobacco Use Types Packs/Day Years [...] 06/18/14 1222 Note Time: 06/11/14826 Status: Signed Dry Cans Back Tender: Jannette Samaniego DO (Physician) NAME: AZUL MCCLELLAN MR#: [id number] CSN: [id number] AUTHENTICATING CLINICIAN: Jannette Samaniego DO CONFIRM #: [id number] LOC: 402 CLINIC PROGRESS NOTE DATE OF [...] MEDICAL HISTORY: Reviewed and updated as per [facility]. Please see for details. SOCIAL HISTORY: Reviewed and updated as per [facility]. Please see for details. MEDICATIONS: Reviewed and updated as per [facility]. Please see for details. ALLERGIES: Reviewed and updated as per [facility]. Please see for details. REVIEW OF SYSTEMS: As per [facility]. PHYSICAL EXAM: VITAL SIGNS: As per Epic. [...] with greater than 50% spent in direct [id number] counseling, coordination of care. Discussed worsening concerns in depth. Discussed uncertain etiology of symptoms, expected course. All questions answered to patient's satisfaction. Medications and allergy list updated. Side effects ofmedications, risk/benefits and alternatives discussed. Patient understands and agrees with plan as listed above EMK:MEDQ C: CONFIRM #: [id number] documented in this encounter Plan of Treatment Not on filedocumented as of this encounter Visit Diagnoses Diagnosis Anxiety (HRC) - Primary Anxiety state, unspecified Gastroesophageal reflux disease without esophagitis Esophageal reflux Panic attacks (HRC) Panic disorder without agoraphobia documented in this encounter Care Teams Detail Supervisor Relationship Specialty Start Date End Date Non Pn, Clinician, PCP - General 06/05/14 10/14/15 [place] [address] documented as of this encounter
--- OUTSIDE RECORDS SUMMARY | 2022-01-07 14:34 | XMS_ITS | Encounter Summary ---
:1980 Author Organization [employer] Address [address] [place] [address] Care Team Providers Name Role Phone Zion Sorto MD Primary Care Provider Reason for Visit Reason Onset Date Comments FLOATERS 11/29/2016 BE floaters, about 2 months Encounter Details Date Type Department Care Team Description 11/29/2016 Telephone [facility] 3900 Self-Referral, FLOATER S (BE floaters, Ophthalmology Patient, MD about 2 months) [address] [facility] [place] [address] [phone] Social History Tobacco Use Types Packs/Day Years [...] care for appt. And not suggestive of FILLING SEPARATOR care - Appt is with [facility] 10:05 11/30/2016 documented in this encounter Plan of Treatment Not on filedocumented as of this encounter Visit Diagnoses Not on filedocumented in this encounter Care Teams Station Baggage Porter Relationship Specialty Start Date End Date Zion Sorto MD PCP - General 10/15/[address] [place] [address] documented as of this encounter
--- OUTSIDE RECORDS SUMMARY | 2022-01-07 14:34 | XMS_ITS | Encounter Summary ---
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 [place], [place] [phone] (Wo rk) Social History Tobacco Use Types [...] bilateral documented in this encounter Care Teams Microbiology Teacher Relationship Specialty Start Date End Date Zion Sorto MD PCP - General 10/15/[address] [place] [address] documented as of this encounter
--- OUTSIDE RECORDS SUMMARY | 2022-01-07 14:34 | XMS_ITS | Encounter Summary ---
:1980 Author Organization [employer] Address [address] [place] [address] Care Team Providers Name Role Phone Zion Sorto MD Primary Care Provider Reason for Visit Reason Comments Sore Throat pt wants Rx for Zofran EAR,PLUGGED SINUS PAIN/PRESSURE Encounter Details Date Type Department Care Team Description 04/09/2011 Office Visit Urgent Care [facility] Sore throat (Primary Dx) [address] [place] [address] Social History Tobacco Use Types Packs/Day Years Used Date Smoking Tobacco: Never Smokeless Tobacco: Never Alcohol Use Standard Drinks/Week Comments Not Asked 0 (1 standard drink = 0.6 oz pure alcoho l) Sex Assigned at Date Recorded Not on file documented as of this encounter Last Filed Vital Signs Vital Sign Reading Time Taken Comments Blood Pressure 112/72 04/09/2011 4:31 PM OPERATIONS DEVELOPER Pulse 100 04/09/2011 4:31 PM OPERATIONS DEVELOPER Temperature 36.5 ??C (97.7 ??F) 04/09/2011 4:31 PM OPERATIONS DEVELOPER Respiratory Rate 14 04/09/2011 4:31 PM OPERATIONS DEVELOPER Oxygen Saturation - - Inhaled Oxygen Concentration - - Weight 69.4 kg (153 lb) 04/09/2011 4:31 PM OPERATIONS DEVELOPER Height 161.3 cm (5' 3.5) 04/09/2011 4:31 PM OPERATIONS DEVELOPER Body Mass Index 26.68 04/09/2011 4:31 PM OPERATIONS DEVELOPER documented in this encounter Progress Notes Fauzia Riley RN - 04/11/2011 5:40 PM OPERATIONS DEVELOPER Quick Note: Negative throat culture noted.Fauzia Riley RN 04/11/2011, 5:40 PM ATIONS DEVELOPER Robbie Anaya - 04/09/2011 5:20 PM CST [...] weeks if not better, sooner as needed ATIONS DEVELOPER documented in this encounter Plan of Treatment Not on filedocumented as of this encounter Procedures Procedure Name Priority Date/Time Associated Diagnosis Comme nts STREP GRP A, RAPID Waiting 04/09/2011 4:50 PM Sore throat Res ults for this SCREEN OPERATIONS DEVELOPER procedure are i n the results section. STREP GRP A, THROAT Routine 04/09/2011 4:50 PM Re sults for this CULTURE ONLY OPERATIONS DEVELOPER procedure are i n the results section. documented in this encounter Results STREP GRP A, THROAT CULTURE ONLY (04/09/2011 4:50 PM OPERATIONS DEVELOPER) [facility] Method Time Signature Grp A Culture Negative NEG [facility] Final Specimen Anatomical Collection Method Collection Time Receive d Time (Source) Location / / Volume Laterality 04/09/2011 4:50 PM 2 4:56 OPERATIONS DEVELOPER PM OPERATIONS DEVELOPER Gavi Roldan PA-C LAB_1 Performing Organization Address [facility] Phon e Number [facility] [phone] [facility] [address] [place] [phone] STREP GRP A, RAPID SCREEN (04/09/2011 4:50 PM OPERATIONS DEVELOPER) [facility] Method Time Signature Grp A Rapid Negative [facility]G [facility] Screen Specimen Anatomical Collection Method Collection Time Receive d Time (Source) Location / / Volume Laterality 04/09/2011 4:50 PM 2 4:56 OPERATIONS DEVELOPER PM OPERATIONS DEVELOPER Gavi Roldan PA-C LAB_1 Performing Organization Address [facility] Phon e Number [employer] [phone] [address] documented in this encounter Visit Diagnoses Diagnosis Sore throat - Primary Acute pharyngitis documented in this encounter Care Teams Crystal Inspector Relationship Specialty Start Date End Date Zion Sorto MD PCP - General 07/16/04 06/04/[address] [id number] documented as of this encounter
--- OUTSIDE RECORDS SUMMARY | 2022-01-07 14:34 | XMS_ITS | Encounter Summary ---
:1980 Author Organization [employer] Address [address] [place] [address] Care Team Providers Name Role Phone Zion Sorto MD Primary Care Provider Reason for Visit Reason Onset Date Comments QUESTIONS, GENERAL 04/07/2011 Encounter Details Date Type Department Care Team Description 04/07/2011 Telephone Careline Unassigned, Provider QUESTIONS, GENERAL [address] [place], [place] [address] [place] [address] Social History Tobacco Use Types Packs/Day Years [...] back to make appt. Sandhya To, RN ORY SCIENTIST Martin Jean - 04/07/2011 4:36 PM CST [...] entered in the pharmacy field. JANIE TUBBS DUFF IN [place] ORY SCIENTIST documented in this encounter Plan of Treatment Not on filedocumented as of this encounter Visit Diagnoses Not on filedocumented in this encounter Care Teams Hat Cone Inspector Relationship Specialty Start Date End Date Zion Sorto MD PCP - General 07/16/04 06/04/[address] [place] [id number] documented as of this encounter
--- OUTSIDE RECORDS SUMMARY | 2022-01-07 14:35 | XMS_ITS | Encounter Summary ---
:1980 Author [facility] Address [address] [place] [address] Care Team Providers Name Role Phone Non Pn, Clinician MD Primary Care Provider Unavailable Encounter Details Date Type Department Care Team Description 03/13/2001 Orders Only Rigo Camara MD [address] [place], [place] [address] [place] [address] [phone] (Wo rk) Social History Tobacco Use Types Packs/Day Years Used Date Smoking Tobacco: Never Assessed Sex Assigned at Date Recorded Not on file documented as of this encounter Plan of Treatment Not on filedocumented as of this encounter Procedures Procedure Name Priority Date/Time Associated Diagnosis Comme nts GC (N. Waiting 03/13/2001 5:38 PM Results f or this GONORRHOEAE)(14 AUTOMATION TENDER procedure ar e in YEARS AND OLDER) the results section. CHLAMYDIA (14 YEARS Waiting 03/13/2001 5:38 PM Re sults for this AND OLDER) AUTOMATION TENDER procedure are i n the results section. documented in this encounter Results GC (N. GONORRHOEAE) - 1 SWAB (03/13/2001 5:38 PM AUTOMATION TENDER) Component Value Ref Test Analysis Performed At [facility] Range Method Time Signature GC (N. Negative NEG [facility] gonorrhoeae) Test Performed by PCR Assay Performed at [facility] Source [place] [facility] Specimen Anatomical Collection Method Collection Time Receive d Time (Source) Location / / Volume Laterality 03/13/2001 5:38 PM 2 6:07 AUTOMATION TENDER PM AUTOMATION TENDER Rigo Abreu MD LAB_1 Performing Organization Address City/State/ZIP Code Phon e Number [address] [address] [place], [place] [phone] CHLAMYDIA - 1 SWAB (03/13/2001 5:38 PM AUTOMATION TENDER) [facility] Method Time Signature Chlamydia Negative NEG [facility] Test Performed by PCR Assay Performed at [facility] Source [place] [facility] Specimen Anatomical Collection Method Collection Time Receive d Time (Source) Location / / Volume Laterality 03/13/2001 5:38 PM 2 6:07 AUTOMATION TENDER PM AUTOMATION TENDER Rigo Abreu MD LAB_1 Performing Organization Address [facility] Phon e Number [address] [address] [place], [place] [phone] documented in this encounter Visit Diagnoses Not on filedocumented in this encounter Care Teams Interlibrary Loan Services Librarian Relationship Specialty Start Date End Date Non Pn, Clinician, PCP - General 06/05/14 10/14/15 [place] [address] documented as of this encounter
--- OUTSIDE RECORDS SUMMARY | 2022-01-07 14:35 | XMS_ITS | Encounter Summary ---
:1980 Author Organization [employer] [facility] Address [address] [place] [address] Care Team Providers Name Role Phone Judith Almeida MD Primary Care Provider Reason for Visit Reason Comments URINARY FREQUENCY--ED VOMITING--ED + test Encounter Details Date Type Department Care Team Description 07/14/2004 - Emergency [facility] Emergency Dept Nafisa Murray NAUSEA ALONE; 07/15/2004 [place] [address] [phone] [place] [address] Social History Tobacco Use Types [...] Ms. Irma Garg, Thank you for choosing [facility] for your emergency medical needs. You have received emergency care only and your condition may change. Therefore, we highly recommend you follow-up with your physician as directed. For follow-up care contact: Further workup and treatment may be needed if symptoms persist, worsen or new related symptoms occur. SEMIAUTOMATIC TAPER OPERATOR Clinic [phone] For follow-up care, you should be seen [...] would like to be seen in a [facility] clinic, please call the [facility] Appointment Desk at [phone] anytime between 7:00 AM and 9:00 PM, 7 days a week, 365 days a year (Hearing Impaired: ). Please bring these instructions with you when [...] by your caregiver). ExitCare(R) Patient Information (C)2004 [employer]. \\[email or web address]\ExitcareNonfieldFull\NonFields\di\Tajik - No Bhandari\[email or web address].htm documented in this encounter Medications at Time of Discharge Medication Sig Dispensed Refills Start Date End Date FORMULA/FOLIC ACID one tab po daily 90 3 08/13/2005 OR TABS documented as of this encounter ED Notes Fannie García - 07/15/2004 7:45 AM CDT [facility] Emergency Department Visit Note Patient Name: Azul [facility] Date of : 1980 Chief Complaint: [...] History n/c Review of Systems: Please see Zite flowsheet for review of systems. Physical Exam: [...] home 2. Reglan prn nausea 3. f/u Fingerprinter 1-2 weeks 4. return to ED for any concerns - fevers, chills, vaginal discharge, inability to take PO, other concerns. Condition on disposition: Stable This electronic signature covers the nursing and ancillary testing orders for this visit. Author: Fannie García - 07/14/2004 11:05 PM Nafisa Murray - 07/15/2004 2:19 AM CDT [facility] Emergency Department Attending Supervision Note Patient [...] UA MICROSCOPIC IF (07/14/2004 11:22 PM CDT) [facility] gist Method Time Signature Urine Microscopic [facility] Comments exam not indicated Urine Color Yellow [facility] Urine Clarity Clear [facility] Specific 1.036 (H) 1.005 - [facility] [place],Ur 1.030 Comment: Possible Interfering Substances pH, Urine [...] Organization Address City/State/ZIP Code Phon e Number [address] [address] [place], [place] [phone] documented in this encounter Visit Diagnoses Diagnosis Nausea alone state, incidental documented in this encounter Care Teams Dental Technologist Relationship Specialty Start Date End Date Judith Almeida MD PCP - General 11/28/01 07/15/04 [address] [place] [address] documented as of this encounter
--- OUTSIDE RECORDS SUMMARY | 2022-01-07 14:35 | XMS_ITS | Encounter Summary ---
:1980 Author Organization [employer] Address [address] [place] [address] Care Team Providers Name Role Phone Judith Almeida MD Primary Care Provider Encounter Details Date Type Department Care Team Description 11/28/2001 Office Visit [facility] Judith Baldwin MD [facility] [address] [place] [address] (Wo rk) Social History Tobacco [...] almost 5 years old. She works in [employer]. She was also concerned about feeling of [...] patient was precepted with Dr. Martin Luong. [facility] Dictated: 11/28/2001 12:25:00 Transcribed: 11/29/2001 11:13:39 Doc #: [id number] PATIENT NAME: AZUL MCCLELLAN VISIT DATE: 11/28/2001 AGE: 21Y [facility] Provider Signature Page 2 Confidential Medical Record [facility] [address] [place] [phone] Page Patient: AZUL MCCLELLAN Visit Date: 11/28/2001 Judith Almeida MD Date of : 1980 VISIT DATE: 11/28/2001 AGE: 21Y [facility] Provider Signature documented in this encounter Plan of Treatment Not on filedocumented as of this encounter Visit Diagnoses Not on filedocumented in this encounter Care Teams E/M Engineer Relationship Specialty Start Date End Date Judith Almeida MD PCP - General 11/28/01 07/15/04 [address] [place] [address] documented as of this encounter
--- OUTSIDE RECORDS SUMMARY | 2022-01-07 14:35 | XMS_ITS | Encounter Summary ---
:1980 Author Organization [facility] Address [address] [place] [address] Care Team Providers Name Role Phone Judith Almeida MD Primary Care Provider Encounter Details Date Type Department Care Team Description 03/07/2002 Orders Only [facility] Maxx Mccarty MD Laboratory [address] [facility] [address] [place] [address] [place] [address] [phone] Social History Tobacco Use Types Packs/Day Years Used Date Smoking Tobacco: Never Assessed Sex Assigned at Date Recorded Not on file documented as of this encounter Plan of Treatment Not on filedocumented as of this encounter Procedures Procedure Name Priority Date/Time Associated Comments Diagnosis URINE MICROSCOPIC Routine 03/07/2002 8:35 PM Resu lts for this REHABILITATION MANAGER procedure are i n the results section. UA CONDITIONAL UC Waiting 03/07/2002 8:35 PM Resu lts for this REHABILITATION MANAGER procedure are i n the results section. TEST Waiting 03/07/2002 8:35 PM Results for this (URINE) REHABILITATION MANAGER procedure are i n the results section. documented in this encounter Results (ABNORMAL) URINE MICROSCOPIC (03/07/2002 8:35 PM REHABILITATION MANAGER) P athologist Signature RBC'S 5 (H) 0 - 3 /hpf [facility] WBC'S 0 0 - 5 /hpf [facility] Epith, Squamous Few /hpf [facility] Specimen Anatomical Collection Method Collection Time Receive d Time (Source) Location / / Volume Laterality 03/07/2002 8:35 PM 3 8:40 REHABILITATION MANAGER PM REHABILITATION MANAGER Maxx Mccarty MD LAB_1 Performing Organization Address [facility] Phon e Number [address] [address] [place], [place] [phone] (ABNORMAL) UA CONDITIONAL UC (03/07/2002 8:35 PM REHABILITATION MANAGER) Patholo gist Method Time Signature Conditional UC Not [facility] Culture Indicated Urine Comments Microscopic [facility] exam indicated Urine Color Yellow [facility] Urine Clarity Clear [facility] Specific 1.017 1.005 - [facility] [place],Ur 1.030 pH, Urine 6.0 4.5 - 8.0 [...] Volume Laterality 03/07/2002 8:35 PM 3 8:40 REHABILITATION MANAGER PM REHABILITATION MANAGER Maxx Mccarty MD LAB_1 Performing Organization Address [facility] Phon e Number [address] [address] [place], [place] [phone] TEST (URINE) (03/07/2002 8:35 PM REHABILITATION MANAGER) Analysis Performed At Patho logist Time Signature HCG, Urine Positive [facility] Greater than 25 mIU Specimen Anatomical Collection Method Collection Time Receive d Time (Source) Location / / Volume Laterality 03/07/2002 8:35 PM 3 8:40 REHABILITATION MANAGER PM REHABILITATION MANAGER Maxx Mccarty MD LAB_1 Performing Organization Address [facility] Phon e Number [address] [address] [place], [place] [phone] documented in this encounter Visit Diagnoses Not on filedocumented in this encounter Care Teams Base Filler Operator Relationship Specialty Start Date End Date Judith Almeida MD PCP - General 11/28/01 07/15/04 [address] [place] [address] documented as of this encounter
--- OUTSIDE RECORDS SUMMARY | 2022-01-07 14:35 | XMS_ITS | Encounter Summary ---
:1980 Author Organization [facility] Address [address] [place] [address] Care Team Providers Name Role Phone Judith Almeida MD Primary Care Provider Encounter Details Date Type Department Care Team Description 10/05/2002 Office Visit MALO MARBELLA DEFAULT Unassigned, ACUTE PH ARYNGITIS(SORE Provider THROAT) [address] [place] [address] Social History Tobacco Use Types Packs/Day Years Used Date Smoking Tobacco: Never Assessed Sex Assigned at Date Recorded Not on file documented as of this encounter Plan of Treatment Not on filedocumented as of this encounter Visit Diagnoses Diagnosis Acute pharyngitis documented in this encounter Care Teams Cigar Wrapper Relationship Specialty Start Date End Date Judith Almeida MD PCP - General 11/28/01 07/15/04 [address] [place], [place] [address] documented as of this encounter
--- OUTSIDE RECORDS SUMMARY | 2022-01-07 14:35 | XMS_ITS | Encounter Summary ---
:1980 Author Organization [facility] Address [address] [place] [address] Care Team Providers Name Role Phone Judith Almeida MD Primary Care Provider Encounter Details Date Type Department Care Team Description 11/28/2001 Orders Only Kaylin Almeida MD [address] [facility] [address] (Wo rk) Social History Tobacco [...] Component Value Ref Test Analysis Performed At [facility] Range Method Time Signature Specimen Throat Swab [facility] Description Special None [facility] Requests Culture No Beta [facility] Hemolytic Streptococcus Isolated Report Status Final [facility] Report Status [id number] [facility] Specimen Anatomical Collection Method Collection Time Receive d Time (Source) Location / / Volume Laterality 11/28/2001 9:35 AM 2 CDT 11:52 AM CDT Judith Almeida MD LAB_1 Performing Organization Address City/State/ZIP Code Phon e Number [address] [address] [place], [place] [phone] documented in this encounter Visit Diagnoses Not on filedocumented in this encounter Care Teams Consumer Loan Officer Relationship Specialty Start Date End Date Judith Almeida MD PCP - General 11/28/01 07/15/04 [address] [place] [address] documented as of this encounter
--- OUTSIDE RECORDS SUMMARY | 2022-01-07 14:35 | XMS_ITS | Encounter Summary ---
:1980 Author Organization [facility] Address [address] [place] [address] Care Team Providers Name Role Phone Judith Almeida MD Primary Care Provider Encounter Details Date Type Department Care Team Description 10/05/2002 Orders Only [facility] Destin Lorenzo Laboratory MD [address] [place] [address] [place] [address] [phone] (Wo rk) Social History Tobacco Use Types [...] RAPID STREP THROAT (10/05/2002 6:28 PM CDT) [facility] Method Time Signature Rapid Strep, Direct test [facility] Throat negative, culture sent Specimen Anatomical Collection Method Collection Time Receive d Time (Source) Location / / Volume Laterality 10/05/2002 6:28 PM 3 6:33 CDT PM CDT Destin Lorenzo Jr., MD LAB_1 Performing Organization Address City/State/ZIP Code Phon e Number [address] [id number] [place], [place] [phone] documented in this encounter Visit Diagnoses Not on filedocumented in this encounter Care Teams Laboratory Equipment Installer Relationship Specialty Start Date End Date Judith Almeida MD PCP - General 11/28/01 07/15/04 [address] [place] [address] documented as of this encounter
--- OUTSIDE RECORDS SUMMARY | 2022-01-07 14:35 | XMS_ITS | Encounter Summary ---
:1980 Author Organization [email or web address] Address [address] [place] [address] Care Team Providers Name Role Phone Judith Almeida MD Primary Care Provider Reason for Visit Reason Comments ABDOMINAL PAIN Encounter Details Date Type Department Care Team Description 03/08/2002 Telephone Careline Anitha Marr, ABDOMINAL PAIN [address] [place] [address] [facility] [phone] [facility] [address] Social History Tobacco Use Types Packs/Day Years Used Date Smoking Tobacco: Never Assessed Sex Assigned at Date Recorded Not on file documented as of this encounter Nursing Notes 03/08/2002 11:59 PM HOSPITAL EDUCATOR >> PEG A JENSEN MonMar 08, 2002 [...] on filedocumented in this encounter Care Teams Research Assistant Member Relationship Specialty Start Date End Date Judith Almeida MD PCP - General 11/28/01 07/15/04 [address] [place] [address] documented as of this encounter
--- OUTSIDE RECORDS SUMMARY | 2022-01-07 14:35 | XMS_ITS | Encounter Summary ---
:1980 Author Organization [facility] Address [address] [place] [address] Care Team Providers Name Role Phone Zion Sorto MD Primary Care Provider Encounter Details Date Type Department Care Team Description 07/14/2004 Emergency Room Emergency Dept Emergency, [facility] Emergency [address] [place] [address] Provider Orders/[place] [address] Social History Tobacco Use Types Packs/Day Years Used Date Smoking Tobacco: Never Assessed Sex Assigned at Date Recorded Not on file documented as of this encounter Progress Notes Emergency, Provider - 07/14/2004 12:00 AM CDT documented in this encounter Plan of Treatment Not on filedocumented as of this encounter Visit Diagnoses Not on filedocumented in this encounter Care Teams Manager System Relationship Specialty Start Date End Date Zion Sorto MD PCP - General 07/16/04 06/04/14 [address] [place] [place] [id number] documented as of this encounter
--- OUTSIDE RECORDS SUMMARY | 2022-01-07 14:35 | XMS_ITS | Encounter Summary ---
:1980 Author Organization [employer] Address [address] [place] [address] Care Team Providers Name Role Phone Judith Almeida MD Primary Care Provider Encounter Details Date Type Department Care Team Description 07/27/2002 Office Visit MALO MARBELLA DEFAULT Unassigned, Provider LICE [address] [place] [address] Social History Tobacco Use Types Packs/Day Years [...] Mak MD Transcribed: 07/29/2002 06:38:40 Doc #: [id number] cc: Page 1 Patient Name: AZUL MCCLELLAN Visit Date: 07/27/2002 EMERGENCY MEDICINE NOTE [facility]IDENTIAL MEDICAL RECORD [address] [phone] Page 1 Patient: AZUL MCCLELLAN Location: [facility]: Date of : 1980 Visit Date: 07/27/2002 EMERGENCY MEDICINE NOTE documented in this encounter Plan of Treatment Not on filedocumented as of this encounter Visit Diagnoses Diagnosis Pediculus capitis (head louse) documented in this encounter Care Teams Adjunct Communications Faculty Member Relationship Specialty Start Date End Date uJdith Almeida MD PCP - General 11/28/01 07/15/04 [address] [place] [address] documented as of this encounter
--- OUTSIDE RECORDS SUMMARY | 2022-01-07 14:35 | XMS_ITS | Encounter Summary ---
:1980 Author Organization [employer] Address [address] [place] [address] Care Team Providers Name Role Phone Judith Almeida MD Primary Care Provider Encounter Details Date Type Department Care Team Description 03/10/2002 Office Visit REDO MARBELLA DEFAULT Unassigned, SPON ABO RT [id number]-UNSP; Provider ABDOMINAL PAIN LLQ [address] [place] [address] Social History Tobacco Use Types Packs/Day Years [...] 220. I spoke with Dr. Bai of WATER FABRICATOR OPERATOR concerning follow up of the patient. ASSESSMENT: Spontaneous . PLAN: The patient was given EPIC instructions for miscarriage. She was instructed to make a follow up appointment with [facility]CLINICAL [facility] and was given their phone number for first available this week. She was also given the number for the WATER FABRICATOR OPERATOR clinic to try and make an appointment there if she is unable to be seen at the NURSE MIDWIFE/CLINICAL INSTRUCTOR clinic. She was told she would need to return if her pain was uncontrolled and she has vaginal bleeding of more than 1 pad per hour. DISPOSITION: Discharged to home in stable condition. lmn Dictated: 03/10/2002 15:29:25 Melvi Tadeo PA-C Transcribed: 03/11/2002 09:43:17 Patient seen with Evan Lucero MD Doc #: [id number] Page 2 Patient Name: AZUL MCCLELLAN Visit Date: 03/10/2002 EMERGENCY MEDICINE NOTE [facility]FIDENTIAL MEDICAL RECORD [address] [phone] Page 1 Patient: AZUL MCCLELLAN Location: [facility]: Date of : 1980 Visit Date: 03/10/2002 EMERGENCY MEDICINE NOTE OSURGICAL NURSE PRACTITIONER documented in this encounter Plan of Treatment Not on filedocumented as of this encounter Visit Diagnoses Diagnosis Unspecified spontaneous without mention of complication Abdominal pain, left lower quadrant documented in this encounter Care Teams Inside Barrel Lathe Operator Relationship Specialty Start Date End Date Judith Almeida MD PCP - General 11/28/01 07/15/04 [address] [place] [address] documented as of this encounter
--- OUTSIDE RECORDS SUMMARY | 2022-01-07 14:35 | XMS_ITS | Encounter Summary ---
:1980 Author Organization [facility] Address [address] [place] [address] Care Team Providers Name Role Phone Judith Almeida MD Primary Care Provider Encounter Details Date Type Department Care Team Description 03/10/2002 Orders Only [facility] Palak Lucero MD Laboratory [address] [place], [place] [id number] [place] [address] [place] [address] [phone] Social History Tobacco Use Types Packs/Day Years Used Date Smoking Tobacco: Never Assessed Sex Assigned at Date Recorded Not on file documented as of this encounter Plan of Treatment Not on filedocumented as of this encounter Procedures Procedure Name Priority Date/Time Associated Diagnosis Comme nts HCG, QUANTITATIVE, Waiting 03/10/2002 1:59 PM Res ults for this SERUM BUYER INTERN procedure ar e in the results section. documented in this encounter Results HCG, QUANT., SERUM (03/10/2002 1:59 PM BUYER INTERN) P athologist Signature HCG, Quant. 220 mIU/ml REGIONS Preg. Specimen Anatomical Collection Method Collection Time Receive d Time (Source) Location / / Volume Laterality 03/10/2002 1:59 PM 3 2:09 BUYER INTERN PM BUYER INTERN Evan Lucero MD LAB_1 Performing Organization Address City/State/ZIP Code Phon e Number [address] [address] [place], [place] [phone] documented in this encounter Visit Diagnoses Not on filedocumented in this encounter Care Teams Watershed Tender Relationship Specialty Start Date End Date Judith Almeida MD PCP - General 11/28/01 07/15/[address] [place] [address] documented as of this encounter
--- OUTSIDE RECORDS SUMMARY | 2022-01-07 14:35 | XMS_ITS | Encounter Summary ---
:1980 Author Organization [facility] Address [address] [place] [address] Care Team Providers Name Role Phone Judith Almeida MD Primary Care Provider Encounter Details Date Type Department Care Team Description 10/05/2002 Orders Only [facility] Destin Lorenzo Laboratory MD [address] [place] [id number] [place], [place] [phone] (Wo rk) Social History Tobacco Use Types [...] Component Value Ref Test Analysis Performed At [facility] Range Method Time Signature Specimen Throat Swab REGIONS Description Special None REGIONS Requests Culture No Beta REGIONS Hemolytic Streptococcus Isolated Report Status Final REGIONS Report Status [id number] REGIONS Specimen Anatomical Collection Method Collection Time Receive d Time (Source) Location / / Volume Laterality 10/05/2002 6:28 PM 3 7:38 CDT PM CDT Destin Lorenzo Jr., MD LAB_1 Performing Organization Address City/State/[place] [address] [place], [place] [phone] documented in this encounter Visit Diagnoses Not on filedocumented in this encounter Care Teams Newspaper Publisher Relationship Specialty Start Date End Date Judith Almeida MD PCP - General 11/28/01 07/15/04 [address] [place] [address] documented as of this encounter
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
--- OUTSIDE RECORDS SUMMARY | 2022-01-07 14:35 | XMS_ITS | Encounter Summary ---
:1980 Author Organization [email or web address] Address [address] [place] [address] Care Team Providers Name Role Phone Judith Almeida MD Primary Care Provider Reason for Visit Reason Comments bugs in her hair Encounter Details Date Type Department Care Team Description 07/27/2002 Telephone Careline Ani Aldridge RN [address] [place], [place] [address] [facility] [phone] [place] [address] Social History Tobacco Use Types [...] on filedocumented in this encounter Care Teams Eyeglass Frames Polisher Relationship Specialty Start Date End Date Judith Almeida MD PCP - General 11/28/01 07/15/04 [address] [place] [address] documented as of this encounter
--- OUTSIDE RECORDS SUMMARY | 2022-01-07 14:35 | XMS_ITS | Encounter Summary ---
:1980 Author Organization [employer] Address [address] [place] [address] Care Team Providers Name Role Phone Judith Almeida MD Primary Care Provider Encounter Details Date Type Department Care Team Description 07/24/2002 Office Visit REDO MARBELLA SERRATO Unassigned, ACUTE TO NSILLITIS; Provider ACUTE PHARYNGITIS(SORE THROAT) [address] [place] [address] Social History Tobacco Use Types Packs/Day Years [...] Dictating for on-site staff physician Doc #: [id number] cc: Page 1 Patient Name: AZUL MCCLELLAN Visit Date: 07/24/2002 EMERGENCY MEDICINE NOTE CONFIDENTIAL MEDICAL RECORD [address] [address] Page 1 Patient: AZUL MCCLELLAN Location: [facility]: Date of : 1980 Visit Date: 07/24/2002 EMERGENCY MEDICINE NOTE documented in this encounter Plan of Treatment Not on filedocumented as of this encounter Visit Diagnoses Diagnosis Acute tonsillitis Acute pharyngitis documented in this encounter Care Teams Song Writer Relationship Specialty Start Date End Date Judith Almeida MD PCP - General 11/28/01 07/15/04 [address] [place] [address] documented as of this encounter
--- OUTSIDE RECORDS SUMMARY | 2022-01-07 14:35 | XMS_ITS | Encounter Summary ---
:1980 Author Organization [facility] Address [address] [place] [address] Care Team Providers Name Role Phone Judith Almeida MD Primary Care Provider Encounter Details Date Type Department Care Team Description 03/07/2002 Office Visit Maxx Bryant, AB DOMINAL PAIN LUQ; POISONING-AROM ANALGESICS NEC; [address] [facility] EARLY PREG-ANTEPART; [place], [place] PREG STATE, I NCIDENTAL; [address] ADV EFF AROM ANALGSC NEC [phone] (Wo rk) Social History Tobacco Use Types [...] 16, temperature is 99.0, SaO2 is 98%. [place] coma scale is 15. GENERAL: The patient [...] Monday, to have a repeat HCG quant. [facility] Dictated: 03/08/2002 00:14:37 Mark Covington MD Transcribed: 03/08/2002 09:50:55 Patient seen with Maxx Mccarty MD Doc #: [id number] cc: Judith Almeida MD Primary Page 2 Patient Name: AZUL MCCLELLAN Visit Date: 03/07/2002 EMERGENCY MEDICINE NOTE CONFIDENTIAL MEDICAL RECORD [address] [address] Page 1 Patient: AZUL MCCLELLAN Location: ER HPN: Date of : 1980 Visit Date: 03/07/2002 EMERGENCY MEDICINE NOTE INSERTER documented in this encounter Plan of Treatment Not on filedocumented as of this encounter Procedures Procedure Name Priority Date/Time Associated Comments Diagnosis US PELVIS-COMPLETE Routine 03/07/2002 9:50 PM Res ults for this CORE INSERTER procedure are i n the results section. US PELVIC, IVT Routine 03/07/2002 9:50 PM Results for this ADDITIONAL CORE INSERTER procedure are i n the results section. documented in this encounter Results US PELVIC- IVT ADDITIONAL (03/07/2002 9:50 PM CORE INSERTER) Component Value Ref Test Analysis Performed Pathologis [...] / / Volume Laterality 03/07/2002 9:50 PM CORE INSERTER Maxx Mccarty MD RAD US/RH US PELVIS-COMPLETE (03/07/2002 9:50 PM CORE INSERTER) Component Value Ref Test Analysis Performed Pathologis [...] / / Volume Laterality 03/07/2002 9:50 PM CORE INSERTER Maxx Mccarty MD RAD US/RH documented in this encounter Visit Diagnoses Diagnosis Abdominal pain, left upper quadrant Poisoning by aromatic analgesics, not el sewhere classified(965.4) Poisoning by aromatic analgesics, not el sewhere classified Unspecified hemorrhage in early pregnanc y, antepartum state, incidental Aromatic analgesics, not elsewhere class ified, causing adverse effect in therapeutic use documented in this encounter Care Teams Bobbin Handler Relationship Specialty Start Date End Date Judith Almeida MD PCP - General 11/28/01 07/15/04 [address] [place] [address] documented as of this encounter
--- OUTSIDE RECORDS SUMMARY | 2022-01-07 14:35 | XMS_ITS | Encounter Summary ---
:1980 Author Organization [employer] Address [address] [place] [address] Care Team Providers Name Role Phone Judith Almeida MD Primary Care Provider Encounter Details Date Type Department Care Team Description 08/22/2003 Emergency Room RH Emergency Dept Figueroa Becerra MD [place] NOS [address] [place] [address] [place] [address] [phone] (Wo rk) Social History Tobacco Use Types [...] She is deferring to fill out a legal financial specialist form here in the emergency room. CHIEF [...] Becerra MD Transcribed: 08/25/2003 09:52:44 Doc #: [id number] Page 1 Patient Name: AZUL MCCLELLAN Visit Date: 08/22/2003 EMERGENCY MEDICINE NOTE CONFIDENTIAL MEDICAL RECORD [address] [address] Page 1 Patient: AZUL MCCLELLAN Location: [facility] HPN: Date of : 1980 Visit Date: 08/22/2003 EMERGENCY MEDICINE NOTE documented in this encounter Plan of Treatment Not on filedocumented as of this encounter Visit Diagnoses Diagnosis Otalgia, unspecified documented in this encounter Care Teams Rehabilitation Tech Relationship Specialty Start Date End Date Judith Almeida MD PCP - General 11/28/01 07/15/04 [address] [place] [address] documented as of this encounter
--- OUTSIDE RECORDS SUMMARY | 2022-01-07 14:35 | XMS_ITS | Encounter Summary ---
:1980 Author Organization [facility] Address [address] [place] [address] Care Team Providers Name Role Phone Zion Sorto MD Primary Care Provider Encounter Details Date Type Department Care Team Description 07/19/2004 Office Visit [facility] Regions Unknown, Physician Obstetrics and Gynec ology [address] [place] [phone] (Wo rk) Social History Tobacco Use Types Packs/Day Years Used Date Smoking Tobacco: Never Assessed Sex Assigned at Date Recorded Not on file documented as of this encounter Progress Notes Unknown, Physician - 07/19/2004 12:00 AM CDT documented in this encounter Plan of Treatment Not on filedocumented as of this encounter Visit Diagnoses Not on filedocumented in this encounter Care Teams Painter Decorator Relationship Specialty Start Date End Date Zion Sorto MD PCP - General 07/16/04 06/04/14 [address] [place] [address] documented as of this encounter
--- OUTSIDE RECORDS SUMMARY | 2022-01-07 14:35 | XMS_ITS | Encounter Summary ---
:1980 Author Organization [employer] Address [address] [place] [address] Care Team Providers Name Role Phone Zion Sorto MD Primary Care Provider Reason for Visit Reason Comments MEDICATION, NOS pt needed to get Zofran b/c she is 7 weeks and has morning sickings Encounter Details Date Type Department Care Team Description 02/15/2011 Office Visit [facility]gent [facility] Hyperemesis gravidarum [address] [facility] (Primary Dx) [place] [address] Social History Tobacco Use Types Packs/Day Years Used Date Smoking Tobacco: Never Assessed Sex Assigned at Date Recorded Not on file documented as of this encounter Last Filed Vital Signs Vital Sign Reading Time Taken Comments Blood Pressure 115/83 02/15/2011 7:47 PM TRADEMARK ATTORNEY Pulse 103 02/15/2011 7:47 PM TRADEMARK ATTORNEY Temperature 36.1 ??C (96.9 ??F) 02/15/2011 7:47 PM TRADEMARK ATTORNEY Respiratory Rate 18 02/15/2011 7:47 PM TRADEMARK ATTORNEY Oxygen Saturation - - Inhaled Oxygen Concentration - - Weight 72.6 kg (160 lb) 02/15/2011 7:47 PM TRADEMARK ATTORNEY Height 160 cm (5' 3) 02/15/2011 7:47 PM TRADEMARK ATTORNEY Body Mass Index 28.34 02/15/2011 7:47 PM TRADEMARK ATTORNEY documented in this encounter Progress Notes Martin [...] starting vitamins whether prescription or non-prescription now. EMARK ATTORNEY documented in this encounter Nursing Notes 02/15/2011 7:00 PM CST >> Lam Lozano, STEFANIE dagoberto Feb 15, 2011 7:49 PM . documented in this encounter Plan of Treatment Not on filedocumented as of this encounter Visit Diagnoses Diagnosis Hyperemesis gravidarum - Primary Mild hyperemesis gravidarum, unspecified as to episode of care documented in this encounter Care Teams Geophysical Support Specialist Relationship Specialty Start Date End Date Zion Sorto MD PCP - General 07/16/04 06/04/14 [address] [place] [address] documented as of this encounter
--- OUTSIDE RECORDS SUMMARY | 2022-01-07 14:35 | XMS_ITS | Encounter Summary ---
:1980 Author Organization [facility] Address [address] [place] [address] Care Team Providers Name Role Phone Zion Sorto MD Primary Care Provider Encounter Details Date Type Department Care Team Description 07/14/2004 Correspondence None Unknown, Physici an REGIONS CONSENT/RELEASE [address] [place] [address] (Wo rk) Social History Tobacco Use Types Packs/Day Years Used Date Smoking Tobacco: Never Assessed Sex Assigned at Date Recorded Not on file documented as of this encounter Progress Notes Unknown, Physician - 07/14/2004 12:00 AM CDT documented in this encounter Plan of Treatment Not on filedocumented as of this encounter Visit Diagnoses Not on filedocumented in this encounter Care Teams Mixer Crane Operator Relationship Specialty Start Date End Date Zion Sorto MD PCP - General 07/16/04 06/04/14 [address] [place], [place] [address] documented as of this encounter
--- OUTSIDE RECORDS SUMMARY | 2022-01-07 14:35 | XMS_ITS | Encounter Summary ---
:1980 Author Organization [facility] Address [address] [place] [address] Care Team Providers Name Role Phone Judith Almeida MD Primary Care Provider Encounter Details Date Type Department Care Team Description 03/07/2002 Orders Only [facility] Maxx Mccarty MD Laboratory [address] [place] [address] [place] [address] [phone] Social History Tobacco Use Types Packs/Day Years Used Date Smoking Tobacco: Never Assessed Sex Assigned at Date Recorded Not on file documented as of this encounter Plan of Treatment Not on filedocumented as of this encounter Procedures Procedure Name Priority Date/Time Associated Diagnosis Comme nts HCG, QUANTITATIVE, Waiting 03/07/2002 9:35 PM Res ults for this SERUM DIRECTOR OF ACCOUNTS RECEIVABLE procedure ar e in the results section. documented in this encounter Results HCG, QUANT., SERUM (03/07/2002 9:35 PM DIRECTOR OF ACCOUNTS RECEIVABLE) P athologist Signature HCG, Quant. 453 mIU/ml REGIONS Preg. Specimen Anatomical Collection Method Collection Time Receive d Time (Source) Location / / Volume Laterality 03/07/2002 9:35 PM 3 9:43 DIRECTOR OF ACCOUNTS RECEIVABLE PM DIRECTOR OF ACCOUNTS RECEIVABLE Maxx Mccarty MD LAB_1 Performing Organization Address City/State/ZIP Code Phon e Number [address] [address] [place], [place] [phone] documented in this encounter Visit Diagnoses Not on filedocumented in this encounter Care Teams Slide Fasteners Inspector Relationship Specialty Start Date End Date Judith Almeida MD PCP - General 11/28/01 07/15/04 [address] [place] [address] documented as of this encounter
--- OUTSIDE RECORDS SUMMARY | 2022-01-07 14:35 | XMS_ITS | Encounter Summary ---
:1980 Author Organization [facility] Address [address] [place] [address] Care Team Providers Name Role Phone Judith Almeida MD Primary Care Provider Encounter Details Date Type Department Care Team Description 03/07/2002 Orders Only [facility] Maxx Mccarty MD Laboratory [address] [address] [place] [address] [phone] Social History Tobacco Use Types Packs/Day Years Used Date Smoking Tobacco: Never Assessed Sex Assigned at Date Recorded Not on file documented as of this encounter Plan of Treatment Not on filedocumented as of this encounter Procedures Procedure Name Priority Date/Time Associated Diagnosis Comme nts GC (N. Waiting 03/07/2002 8:35 PM Results f or this GONORRHOEAE)(14 RENAL MEDICINE PHYSICIAN procedure ar e in YEARS AND OLDER) the results section. CHLAMYDIA (14 YEARS Routine 03/07/2002 8:35 PM Re sults for this AND OLDER) RENAL MEDICINE PHYSICIAN procedure are i n the results section. documented in this encounter Results GC (N. GONORRHOEAE) - 1 SWAB (03/07/2002 8:35 PM RENAL MEDICINE PHYSICIAN) Component Value Ref Test Analysis Performed At [facility] Range Method Time Signature GC (N. Negative NEG REGIONS gonorrhoeae) Test Performed by PCR Assay Performed at [facility] Source CERVIX REGIONS Specimen Anatomical Collection Method Collection Time Receive d Time (Source) Location / / Volume Laterality 03/07/2002 8:35 PM 3 9:23 RENAL MEDICINE PHYSICIAN PM RENAL MEDICINE PHYSICIAN Maxx Mccarty MD LAB_1 Performing Organization Address [facility] Phon e Number [address] [address] [place], [place] [phone] CHLAMYDIA - 1 SWAB (03/07/2002 8:35 PM RENAL MEDICINE PHYSICIAN) [facility] Method Time Signature Chlamydia Negative NEG REGIONS Test Performed by PCR Assay Performed at [facility] Laboratory Source CERVIX REGIONS Specimen Anatomical Collection Method Collection Time Receive d Time (Source) Location / / Volume Laterality 03/07/2002 8:35 PM 3 9:23 RENAL MEDICINE PHYSICIAN PM RENAL MEDICINE PHYSICIAN Maxx Mccarty MD LAB_1 Performing Organization Address [facility] Phon e Number [address] [address] [place], [place] [phone] documented in this encounter Visit Diagnoses Not on filedocumented in this encounter Care Teams Padder Relationship Specialty Start Date End Date Judith Almeida MD PCP - General 11/28/01 07/15/04 [address] [place] [address] documented as of this encounter
--- OUTSIDE RECORDS SUMMARY | 2022-01-07 14:35 | XMS_ITS | Encounter Summary ---
:1980 Author Organization [facility] Address [address] [place] [address] Care Team Providers Name Role Phone Judith Almeida MD Primary Care Provider Encounter Details Date Type Department Care Team Description 11/28/2001 Orders Only Kaylin Almeida MD [address] [facility] [address] (Wo rk) Social History Tobacco Use [...] RAPID STREP THROAT (11/28/2001 9:28 AM CDT) [facility] Method Time Signature Rapid Strep, Direct test REGIONS Throat negative, culture sent Specimen Anatomical Collection Method Collection Time Receive d Time (Source) Location / / Volume Laterality 11/28/2001 9:28 AM 2 9:29 CDT AM CDT Judith Almeida MD LAB_1 Performing Organization Address City/State/ZIP Code Phon e Number [address] [id number] [place], [place] [phone] documented in this encounter Visit Diagnoses Not on filedocumented in this encounter Care Teams Ferry Hand Relationship Specialty Start Date End Date Judith Almeida MD PCP - General 11/28/01 07/15/04 [address] [place] [address] documented as of this encounter
--- OUTSIDE RECORDS SUMMARY | 2022-01-07 14:35 | XMS_ITS | Encounter Summary ---
:1980 Author Organization [facility] Address [address] [place] [address] Care Team Providers Name Role Phone Zion Sorto MD Primary Care Provider Encounter Details Date Type Department Care Team Description 07/14/2004 Correspondence Emergency Dept Emergency, [facility] D/C PATIENT [address] [facility] Provider ACKNOWLEDGEMENT [place], [place] [id number] Social History Tobacco Use Types Packs/Day Years Used Date Smoking Tobacco: Never Assessed Sex Assigned at Date Recorded Not on file documented as of this encounter Progress Notes Emergency, Provider - 07/14/2004 12:00 AM CDT documented in this encounter Plan of Treatment Not on filedocumented as of this encounter Visit Diagnoses Not on filedocumented in this encounter Care Teams Woods Overseer Relationship Specialty Start Date End Date Zion Sorto MD PCP - General 07/16/04 06/04/14 [address] [facility] [place] [address] documented as of this encounter
--- OUTSIDE RECORDS SUMMARY | 2022-01-07 14:35 | XMS_ITS | Encounter Summary ---
:1980 Author Organization [facility] Address [address] [place] [address] Care Team Providers Name Role Phone Judith Almeida MD Primary Care Provider Encounter Details Date Type Department Care Team Description 03/07/2002 Orders Only [facility] Maxx Mccarty MD Laboratory [address] [place] [id number] [place] [id number] [phone] Social History Tobacco Use Types Packs/Day Years Used Date Smoking Tobacco: Never Assessed Sex Assigned at Date Recorded Not on file documented as of this encounter Plan of Treatment Not on filedocumented as of this encounter Procedures Procedure Name Priority Date/Time Associated Diagnosis Comme nts WET PREP Waiting 03/07/2002 8:35 PM Results f or this PAPER TUBE GRADER procedure are i n the results section . documented in this encounter Results WET PREP (03/07/2002 8:35 PM PAPER TUBE GRADER) [facility] gist Method Time Signature Trichomonas No Trichomonas REGIONS seen Yeast No Yeast Found REGIONS Clue Cells Clue Cells REGIONS present Specimen Anatomical Collection Method Collection Time Receive d Time (Source) Location / / Volume Laterality 03/07/2002 8:35 PM 3 9:24 PAPER TUBE GRADER PM PAPER TUBE GRADER Maxx Mccarty MD LAB_1 Performing Organization Address City/State/ZIP Code Phon e Number [address] [id number] [place], [place] [phone] documented in this encounter Visit Diagnoses Not on filedocumented in this encounter Care Teams Operations Forester Relationship Specialty Start Date End Date Judith Almeida MD PCP - General 11/28/01 07/15/04 [address] [place] [address] documented as of this encounter
--- OUTSIDE RECORDS SUMMARY | 2022-01-07 14:35 | XMS_ITS | Encounter Summary ---
:1980 Author Organization [facility] Address [address] [place] [address] Care Team Providers Name Role Phone Judith Almeida MD Primary Care Provider Encounter Details Date Type Department Care Team Description 11/28/2001 Office Visit [facility] Martin Molina M D ACUTE PHARYNGITIS(SORE THROAT); [facility] [address] [place] [address] Social History Tobacco Use Types Packs/Day Years Used Date Smoking Tobacco: Never Assessed Sex Assigned at Date Recorded Not on file documented as of this encounter Plan of Treatment Not on filedocumented as of this encounter Visit Diagnoses Diagnosis Acute pharyngitis Other dyspnea and respiratory abnormalit y documented in this encounter Care Teams Building Principal Relationship Specialty Start Date End Date Judith Almeida MD PCP - General 11/28/01 07/15/04 [address] [place] [address] documented as of this encounter
--- OUTSIDE RECORDS SUMMARY | 2022-01-07 14:35 | XMS_ITS | Encounter Summary ---
:1980 Author Organization [facility] Address [address] [place] [address] Care Team Providers Name Role Phone Judith Almeida MD Primary Care Provider Encounter Details Date Type Department Care Team Description 03/07/2002 Orders Only [facility] Maxx Mccarty MD Laboratory [address] [place] [id number] [place] [address] [id number] [phone] Social History Tobacco Use Types Packs/Day Years Used Date Smoking Tobacco: Never Assessed Sex Assigned at Date Recorded Not on file documented as of this encounter Plan of Treatment Not on filedocumented as of this encounter Procedures Procedure Name Priority Date/Time Associated Diagnosis Comme nts RH(D) TYPING Waiting 03/07/2002 9:35 PM Results f or this LIGHTNING ROD INSTALLER procedure are i n the results section . documented in this encounter Results RH(D) TYPING (03/07/2002 9:35 PM LIGHTNING ROD INSTALLER) P athologist Signature RH(D) Typing POSITIVE [facility] Specimen Anatomical Collection Method Collection Time Receive d Time (Source) Location / / Volume Laterality 03/07/2002 9:35 PM 3 9:43 LIGHTNING ROD INSTALLER PM LIGHTNING ROD INSTALLER Maxx Mccarty MD LAB_1 Performing Organization Address City/State/ZIP Code Phon e Number [address] [address] [place], [place] [phone] documented in this encounter Visit Diagnoses Not on filedocumented in this encounter Care Teams Automation Manager Relationship Specialty Start Date End Date Judith Almeida MD PCP - General 11/28/01 07/15/04 [address] [place] [address] documented as of this encounter
--- OUTSIDE RECORDS SUMMARY | 2022-01-07 14:35 | XMS_ITS | Encounter Summary ---
:1980 Author Organization [facility] Address [address] [place] [address] Care Team Providers Name Role Phone Judith Almeida MD Primary Care Provider Encounter Details Date Type Department Care Team Description 03/07/2002 Orders Only [facility] Maxx Mccarty MD Laboratory [address] [place] [id number] [place] [address] [id number] [phone] Social History Tobacco Use Types Packs/Day Years Used Date Smoking Tobacco: Never Assessed Sex Assigned at Date Recorded Not on file documented as of this encounter Plan of Treatment Not on filedocumented as of this encounter Procedures Procedure Name Priority Date/Time Associated Diagnosis Comme nts ACETAMINOPHEN Waiting 03/07/2002 9:35 PM Results for this ECOMMERCE MANAGER procedure are i n the results section . documented in this encounter Results (ABNORMAL) ACETAMINOPHEN (03/07/2002 9:35 PM ECOMMERCE MANAGER) P athologist Signature Acetaminophen 4 (L) 10 - 20 REGIONS mcg/ml Specimen Anatomical Collection Method Collection Time Receive d Time (Source) Location / / Volume Laterality 03/07/2002 9:35 PM 3 9:43 ECOMMERCE MANAGER PM ECOMMERCE MANAGER Maxx Mccarty MD LAB_1 Performing Organization Address City/State/ZIP Code Phon e Number [address] [id number] [place], [place] [phone] documented in this encounter Visit Diagnoses Not on filedocumented in this encounter Care Teams Twister Doffer Relationship Specialty Start Date End Date Judith Almeida MD PCP - General 11/28/01 07/15/04 [address] [place] [address] documented as of this encounter
--- OUTSIDE RECORDS SUMMARY | 2022-01-07 14:35 | XMS_ITS | Encounter Summary ---
:1980 Author Organization [employer] [employer] Address [address] [place] [address] Care Team Providers Name Role Phone Zion Sorto MD Primary Care Provider Encounter Details Date Type Department Care Team Description 07/05/2004 Office Visit [facility] Zion Sorto M D ABSENCE OF MENSTRUATION; [facility] [address] [place], [place], [place] [address] (Wo rk) Social History Tobacco Use Types [...] Tobacco Status reviewed? (see History Social-Substance) -NO retort condenser attendant offered? -NOT APPLICABLE. Aspirin taken daily? -NO BP was taken on the RIGHT arm. BP cuff size used? -Adult Large Health Education given? -NO. Contact phone number [phone] (home) [phone] (work), alternate phone number- Marisol Bowen 07/05/2004 [...] 07/05/2004 18:49:41 Transcribed: 07/07/2004 14:23:59 Doc #: [id number] Page 1 Patient: AZUL MCCLELLAN Confidential Medical Record [facility] [address] [place] [address] Page Patient: AZUL MCCLELLAN Visit Date: 07/05/2004 [...] Results TEST (URINE) (07/05/2004 2:37 PM CDT) [facility] gist Method Time Signature HCG, Urine Positive REGIONS Positive = >25 mIU/ml Performed at [facility] Specimen Anatomical Collection Method Collection Time Receive d Time (Source) Location / / Volume Laterality 07/05/2004 2:37 PM 5 2:38 CDT PM CDT Zion Sorto MD LAB_1 Performing Organization Address City/State/ZIP Code Phon e Number [address] [phone] [place], [place] [phone] documented in this encounter Visit Diagnoses Diagnosis Absence of menstruation state, incidental documented in this encounter Care Teams Yard Attendant Relationship Specialty Start Date End Date Zion Sorto MD PCP - General 07/16/04 06/04/[address] [place] [address] documented as of this encounter
--- OUTSIDE RECORDS SUMMARY | 2022-01-07 14:36 | XMS_ITS | Encounter Summary ---
:1980 Author Organization [place] Address [address] [place] [address] Care Team Providers Name Role Phone Bebeto Roth MD Unavailable Astrid Rios PA-C Unavailable Francisco Metz MD Primary Care Provider [phone] Reason for Visit Reason Comments Confirmation Of Encounter Details Date Type Department Care Team Description 01/08/2019 Office Visit [facility] Lakisha Nielsen cy test positive (Primary Dx); Medicine Clinic DO Lacy Screening for condition [address] [address] [address] [place], [place] [phone] [address] Social History Tobacco Use Types Packs/Day Years Used Date Smoking Tobacco: Never Smokeless Tobacco: Never Alcohol Use Standard Drinks/Week Comments No 0 (1 standard drink = 0.6 oz pure alcoho l) Sex Assigned at Date Recorded Not on file documented as of this encounter Last Filed Vital Signs Vital Sign Reading Time Taken Comments Blood Pressure 115/79 01/08/2019 1:52 PM LANDSCAPE ARCHITECTURE TEACHER Pulse 121 01/08/2019 1:52 PM LANDSCAPE ARCHITECTURE TEACHER Temperature 36.2 ??C (97.2 ??F) 01/08/2019 1:52 PM LANDSCAPE ARCHITECTURE TEACHER Respiratory Rate 16 01/08/2019 1:52 PM LANDSCAPE ARCHITECTURE TEACHER Oxygen Saturation 100% 01/08/2019 1:52 PM LANDSCAPE ARCHITECTURE TEACHER Inhaled Oxygen Concentration - - Weight 75.6 kg (166 lb 9.6 oz) 01/08/2019 1:52 PM LANDSCAPE ARCHITECTURE TEACHER Height - - Body Mass Index 29.51 04/18/2018 8:42 AM LANDSCAPE ARCHITECTURE TEACHER documented in this encounter Patient Instructions Patient Lakisha Gonzalez, - 01/08/2019 1:40 PM LANDSCAPE ARCHITECTURE TEACHER Here is the plan from today's visit 1. Screening for condition - HCG Qualitative Urine (UPT) ([facility]) 2. test positive Results by [facility] - CBC with Plt ([facility]) - Hemoglobin A1c ([facility]) - Vit-Fe Fumarate-FA ( MULTIVITAMIN W/IRON) 27-0.8 [...] and ultrasound Thank you for coming to [facility] today. Lab Testing: If you had lab testing today and your results are reassuring or normal they will be mailed to you or sent through [employer] within 7 days. If the lab tests need quick action we will call you with the results. The phone number we will call with results is # [phone] (home) . If this is not the best numberplease call our clinic and change the number. Medication Refills: If you need any refills please call your pharmacy and they will contact us. If you need to pickler helper your refill at a new pharmacy, please contact the new pharmacy directly. The new pharmacy will help you get your medications transferred faster. Scheduling: If you have any concerns about today's visit or wish to schedule another appointment please call ouroffice during normal business hours [phone] (8- 5:00 M-F) If a referral was made to a [facility] and you don't get a call from [facility] please call [phone]. If a Mammogram was ordered for you at [facility] call [phone] to schedule or change yourappointment. If you had an XRay/CT/Ultrasound/MRI ordered the number is [phone] to schedule or change your radiology appointment. Medical Concerns: If you have urgent medical concerns please call [phone] at any time of the day. Cyrus Nielsen DO SCAPE ARCHITECTURE TEACHER documented in this encounter Progress Notes Lakisha [...] Her last 2 deliveries have been with [facility]. Problem, Medication and Allergy Lists were reviewed [...] with the final plan. Cyrus Nielsen DO [facility] Cook Helper Vegetable PGY-2 SCAPE ARCHITECTURE TEACHER Katalina Ching MD - 01/08/2019 1:40 PM CST Preceptor Attestation: Patient seen, evaluated and discussed with the resident. I have verified the content of the note, which accurately reflects my assessment of the patient and the plan of care. Supervising Physician: Katalina Ching MD SCAPE ARCHITECTURE TEACHER documented in this encounter Plan of Treatment Not on filedocumented as of this encounter Procedures Procedure Name Priority Date/Time Associated Comments Diagnosis HCL CBC WITH Routine 01/08/2019 2:41 PM Screening for Results for this PLATELETS, DIFF LANDSCAPE ARCHITECTURE TEACHER condition procedure ar e in the results section. HEMOGLOBIN A1C Routine 01/08/2019 2:34 PM test Resul ts for this (LABDAQ) LANDSCAPE ARCHITECTURE TEACHER positive procedure are i n the results section. HCG QUALITATIVE URINE Routine 01/08/2019 1:59 PM Screening for Results for this (LABDAQ) LANDSCAPE ARCHITECTURE TEACHER condition procedure are i n the results section. documented in this encounter Results (ABNORMAL) CBC with platelets differential (01/08/2019 2:41 PM LANDSCAPE ARCHITECTURE TEACHER) [facility] Method Time Signature WBC 8.9 4.0 - 01/08/2019 [facility] 11.0 9:11 PM LANDSCAPE ARCHITECTURE TEACHER [facility] 10e9/L [facility] RBC Count 4.64 3.8 - 5.2 01/08/2019 [facility] 10e12/L 9:11 PM [facility] Hemoglobin 10.9 (L) 11.7 - 01/08/2019 [facility] 15.7 g/dL 9:11 PM [facility] Hematocrit 36.2 35.0 - 01/08/2019 [facility] 47.0 % 9:11 PM [facility] MCV 78 78 - 100 01/08/2019 [facility] fl 9:11 PM [facility] MCH 23.5 (L) 26.5 - 01/08/2019 [facility] 33.0 pg 9:11 PM [facility] MCHC 30.1 (L) 31.5 - 01/08/2019 [facility] 36.5 g/dL 9:11 PM [facility] RDW 15.2 (H) 10.0 - 01/08/2019 [facility] 15.0 % 9:11 PM [facility] Platelet Count 359 150 - 450 01/08/2019 [facility] 10e9/L 9:11 PM [facility] Diff Method Automated 01/08/2019 [facility] Method 9:11 PM [facility] % Neutrophils 69.7 % 01/08/2019 [facility] 9:11 PM [facility] % Lymphocytes 18.5 % 01/08/2019 [facility] 9:11 PM [facility] % Monocytes 9.4 % 01/08/2019 [facility] 9:11 PM [facility] % Eosinophils 1.7 % 01/08/2019 [facility] 9:11 PM [facility] % Basophils 0.4 % 01/08/2019 [facility] 9:11 PM [facility] % Immature 0.3 % 01/08/2019 [facility] Granulocytes 9:11 PM [facility] Nucleated RBCs 0 0 /100 01/08/2019 [facility] 9:11 PM [facility] Absolute 6.2 1.6 - 8.3 01/08/2019 [facility] Neutrophil 10e9/L 9:11 PM [facility] Absolute 1.7 0.8 - 5.3 01/08/2019 [facility] Lymphocytes 10e9/L 9:11 PM [facility] Absolute 0.8 0.0 - 1.3 01/08/2019 [facility] Monocytes 10e9/L 9:11 PM LANDSCAPE ARCHITECTURE TEACHER [facility] Absolute 0.2 0.0 - 0.7 01/08/2019 [facility] Eosinophils 10e9/L 9:11 PM LANDSCAPE ARCHITECTURE TEACHER [facility] Absolute 0.0 0.0 - 0.2 01/08/2019 [facility] Basophils 10e9/L 9:11 PM [facility] Abs Immature 0.0 0 - 0.4 01/08/2019 [facility] Granulocytes 10e9/L 9:11 PM LANDSCAPE ARCHITECTURE TEACHER [facility] Absolute 0.0 01/08/2019 [facility] Nucleated RBC 9:11 PM LANDSCAPE ARCHITECTURE TEACHER [facility] Specimen Anatomical Collection Method Collection Time Receive d Time (Source) Location / / Volume Laterality Blood specimen VENOUS BLOOD / 01/08/2019 2:41 PM 01/08 5:00 (specimen) Unknown LANDSCAPE ARCHITECTURE TEACHER PM LANDSCAPE ARCHITECTURE TEACHER Katalina Ching MD LAB - BLOOD ORDERABLES Performing Organization Address [facility]/ZIP [facility] Phon e Number [facility] [address] [place] [address] [facility] Hemoglobin A1c ([facility]) (01/08/2019 2:34 PM LANDSCAPE ARCHITECTURE TEACHER) athologist Signature Hemoglobin A1C 4.8 4.1 - 5.7 [facility] LABDAQ Specimen Anatomical Collection Method Collection Time Receive d Time (Source) Location / / Volume Laterality Blood specimen VENOUS BLOOD / 01/08/2019 2:34 PM 01/08 2:35 (specimen) Unknown LANDSCAPE ARCHITECTURE TEACHER PM LANDSCAPE ARCHITECTURE TEACHER Katalina Ching MD LAB - LABDAQ Performing Organization Address City/[facility] Phon e Number [facility] [address] [place] [phone] LABDAQ (ABNORMAL) HCG Qualitative Urine (UPT) ([facility]) (01/08/2019 1:59 PM LANDSCAPE ARCHITECTURE TEACHER) [facility] gist Method Time Signature HCG Qual POSITIVE (A) Negative [facility] Urine [facility]ICINE LABDAQ Specimen Anatomical Collection Method Collection Time Receive d Time (Source) Location / / Volume Laterality Urine specimen 01/08/2019 1:59 PM 019 2:00 (specimen) LANDSCAPE ARCHITECTURE TEACHER PM LANDSCAPE ARCHITECTURE TEACHER Katalina Ching MD LAB - LABDAQ Performing Organization Address City/State/ZIP Code Phon e Number [facility] [address] [place], [place] [address] LABDAQ documented in this encounter Visit Diagnoses Diagnosis test positive - Primary examination or test, positive result Screening for condition Screening for unspecified condition documented in this encounter Care Teams Armhole Baster Jumpbasting Relationship Specialty Start Date End Date Francisco Metz PCP - General Family Practice 11/14/18 04/02/20 MD Stevie Bebeto Roth MD Orthopedics 07/09/14 [facility] [address] [place] [address] Astrid Rios PA-C Physician Cartography/Mapping Technician Physician Cartography/Mapping Technician - 07/09/14 Surgical documented as of this encounter
--- OUTSIDE RECORDS SUMMARY | 2022-01-07 14:36 | XMS_ITS | Encounter Summary ---
:1980 Author Organization [employer] Address [address] [facility] [place] [address] Care Team Providers Name Role Phone Bebeto Roth MD Unavailable Astrid Rios PA-C Unavailable Kenton Katz MD Unavailable Unavailable Karen Veliz DO Primary Care Provider Encounter Details Date Type Department Care Team Description 07/11/2020 Records - Health system CONVERSION Provider, Histor ical Social History Tobacco [...] filedocumented in this encounter Care Teams Deputy Sheriff Relationship Specialty Start Date End Date Karen Veliz DO PCP - General Family Medicine 04/03/[address] [place] [address] Bebeto Roth MD Orthopedics 07/09/[address] [place] [address] Astrid Rios PA-C Physician Scout Leaser Physician Scout Leaser - 07/09/14 Surgical Kenton Katz Assigned PCP 02/02/20 08/27/20 MD Feliberto NO INFO AVAILABLE documented as of this encounter
--- OUTSIDE RECORDS SUMMARY | 2022-01-07 14:36 | XMS_ITS | Encounter Summary ---
:1980 Author Organization [place] Address [address] [place] [address]. [place] [address] Care Team Providers Name Role Phone Bebeto Roth MD Unavailable Astrid Rios PA-C Unavailable Francisco Metz MD Primary Care Provider [phone] Francisco Metz MD Unavailable [phone] Encounter Details Date Type Department Care Team Description 01/15/2020 Medical Correspondence [facility] Scan, ENDOCRINOLOGY Health Info Mgmt Non-Provider REFERRAL [facility] AND [address] [address] Social History Tobacco Use Types [...] on filedocumented in this encounter Care Teams Collar Baster Relationship Specialty Start Date End Date Francisco Metz PCP - General Family Practice 11/14/18 04/02/20 MD Stevie Bebeto Roth MD Orthopedics 07/09/[address] [place], [place] [address] Astrid Rios PA-C Physician Data Warehouse Architect Physician Data Warehouse Architect - 07/09/14 Surgical Francisco Metz Assigned PCP 07/04/19 02/01/20 MD Stevie [facility] [address] [address] [place]A LUCIO [address] documented as of this encounter
--- OUTSIDE RECORDS SUMMARY | 2022-01-07 14:36 | XMS_ITS | Encounter Summary ---
:1980 Author Organization [place] Address [address] [place] [address] Care Team Providers Name Role Phone Bebeto Roth MD Unavailable Astrid Rios PA-C Unavailable Francisco Metz MD Primary Care Provider [phone] Francisco Metz MD Unavailable [phone] Kenton Katz MD Unavailable Unavailable Karen Veliz DO Primary Care Provider Kenton Katz MD Unavailable Unavailable Karen Veliz DO Unavailable Reason for Visit Reason Onset Date Comments Referral 12/25/2019 Encounter Details Date Type Department Care Team Description 12/25/2019 Telephone [facility] Francisco Metz, Delores Norris MD [address] [place] [address] [phone] Social History Tobacco Use Types Packs/Day Years [...] referral. Would like it dated for 10/14/19 ORATE TRAVEL CONSULTANT Telephone Encounter - Cherry Viera - 12/26/2019 12:49 PM CST Will forward to PCP to address. Please advise. Cherry Reyes Supervisor Hot Dip Tinning ORATE TRAVEL CONSULTANT Telephone Encounter - RachelMay - 12/25/2019 3:35 PM CST [facility] Family Medicine phone call message - order or referral request from patient: Order or referral being requested: Referral to Physical Therapy At Location: [facility] Additional Details: KENNY Weems states this patient needs a referral for outpatient physical therapy at their location from her primary doctor here. She hasn't had any OB care here and she states that this is the only location she can see her receiving care. Faustina states the patient has attended 10/13 and 10/27. Patient no showed 11/10 Referral only -Specialty Physical Therapy Location [address] [address] [place] to leave a message on voice mail? Yes Primary language: Slovak Rod Cup Filler needed? No Call taken on December 25, 2019 at 3:35 PM by May Rachel Order request route to P SMI TRIAGE Referrals Route to P SMI (Green/[place]/Purple) SHEET COMBINING OPERATOR ORATE TRAVEL CONSULTANT documented in this encounter Plan of Treatment Not on filedocumented as of this encounter Visit Diagnoses Not on filedocumented in this encounter Care Teams Chiropractic Care Relationship Specialty Start Date End Date Francisco Metz PCP - General Family Practice 11/14/18 04/02/20 MD Stevie Karen Veliz PCP - General Family Medicine 04/03/[address] [place], [place] [id number] Bebeto Roth MD Orthopedics 07/09/[address] [place], [place] [address] Astrid Rios PA-C Physician Facilities Maintenance Worker Physician Facilities Maintenance Worker - 07/09/14 Surgical Francisco Metz Assigned PCP 07/04/19 02/01/20 MD Stevie [address] [address] [place] [address] Kenton Katz Assigned PCP 02/02/20 08/27/20 MD Feliberto NO INFO AVAILABLE Kenton Katz Assigned Endocrinology 08/28/20 07/23/21 MD Feliberto Provider NO INFO AVAILABLE Karen Veliz, Assigned PCP 08/28/20 DO 2019 [place] [address] documented as of this encounter
--- OUTSIDE RECORDS SUMMARY | 2022-01-07 14:36 | XMS_ITS | Encounter Summary ---
:1982 Author Organization [facility] Address [address] [place] [address] Care Team Providers Name Role Phone Non Pn, Clinician Primary Care Provider Unavailable Encounter Details Date Type Department Care Team Description 03/13/2001 Orders Only Rigo Camara MD [address] [place], [place] [address] [place] [address] (Wo rk) Social History Tobacco Use Types Packs/Day Years Used Date Smoking Tobacco: Never Assessed Sex Assigned at Date Recorded Not on file documented as of this encounter Plan of Treatment Not on filedocumented as of this encounter Procedures Procedure Name Priority Date/Time Associated Diagnosis Comme nts URINE CULTURE Routine 03/13/2001 5:38 PM Results for this ROTOGRAVURE PRESS OPERATOR procedure are i n the results section . documented in this encounter Results URINE CULTURE (03/13/2001 5:38 PM ROTOGRAVURE PRESS OPERATOR) [facility] Method Time Signature Specimen Urine [facility] Description Straight Cath/[place] Special None REGIONS Requests Culture No Growth REG[facility] After 1 Day Report Status Final [facility] Report Status [id number] [facility] Specimen Anatomical Collection Method Collection Time Receive d Time (Source) Location / / Volume Laterality 03/13/2001 5:38 PM 2 2:00 ROTOGRAVURE PRESS OPERATOR AM ROTOGRAVURE PRESS OPERATOR Rigo Abreu MD LAB_1 Performing Organization Address City/State/ZIP Code Phon e Number [address] [address] [place], [place] [phone] documented in this encounter Visit Diagnoses Not on filedocumented in this encounter Care Teams Inspector Shells Relationship Specialty Start Date End Date Non Pn, Clinician, PCP - General 06/05/14 10/14/15 [place] [address] documented as of this encounter
--- OUTSIDE RECORDS SUMMARY | 2022-01-07 14:36 | XMS_ITS | Encounter Summary ---
:1980 Author Organization [place] Address [address] [facility] [place] [address] Care Team Providers Name Role Phone Bebeto Roth MD Unavailable Astrid Rios PA-C Unavailable Kenton Katz MD Unavailable Unavailable Karen Veliz DO Primary Care Provider Encounter Details Date Type Department Care Team Description 07/11/2020 Records - [facility] CONVERSION Provider, Histor ical Social History [...] filedocumented in this encounter Care Teams Manager Books Relationship Specialty Start Date End Date Karen Veliz DO PCP - General Family Medicine 04/03/[address] [place] [address] Bebeto Roth MD Orthopedics 07/09/[address] [place] [address] Astrid Rios PA-C Physician Lehr Stripper Physician Lehr Stripper - 07/09/14 Surgical Kenton Katz Assigned PCP 02/02/20 08/27/20 MD Feliberto NO INFO AVAILABLE documented as of this encounter
--- OUTSIDE RECORDS SUMMARY | 2022-01-07 14:36 | XMS_ITS | Encounter Summary ---
:1980 Author Organization [place] Address [address] [facility] [place] [address] Care Team Providers Name Role Phone Bebeto Roth MD Unavailable Astrid Rios PA-C Unavailable Francisco Metz MD Primary Care Provider Reason for Visit Reason Onset Date Comments Symptoms 02/18/2019 Encounter Details Date Type Department Care Team Description 02/18/2019 Telephone [facility] Family Medicine Francisco Metz, Symptoms Clinic [address], [facility] [address] [place] [address] [phone] Social History Tobacco Use Types Packs/Day Years [...] size of golf balls, hgb is 11.7. [facility] tried contacting their OB provider to do [...] going home, to be seen at our [facility] emergency department for a second opinion. RN inquired if she has a putaway driver, out of concern for potential dizziness. She has a putaway driver and will head to the [facility] ER. Alanna Sanders RN ETING AUTOMATION SPECIALIST Telephone Encounter - Ursula Barnes - 02/18/2019 2:00 PM CST [facility] Family Medicine phone call message-patient reporting [...] within 3 hours, unless emergent Primary language: Urdu Hook And Eye Machine Operator needed? No Call taken on February 18, 2019 at 2:01 PM by Ursula Barnes ETING AUTOMATION SPECIALIST documented in this encounter Plan of Treatment Not on filedocumented as of this encounter Visit Diagnoses Not on filedocumented in this encounter Care Teams Rubber Attacher Relationship Specialty Start Date End Date Francisco Metz PCP - General Family Practice 11/14/18 04/02/20 MD Stevie Bebeto Roth MD Orthopedics 07/09/[address] [place] [address] Astrid Rios PA-C Physician [employer] Principal Physician [employer] Principal - 07/09/14 Surgical documented as of this encounter
--- OUTSIDE RECORDS SUMMARY | 2022-01-07 14:36 | XMS_ITS | Encounter Summary ---
:1980 Author [facility] Address [address] [place] [address] Care Team Providers Name Role Phone Non Pn, Clinician Primary Care Provider Unavailable Encounter Details Date Type Department Care Team Description 03/13/2001 Orders Only Rigo Camara MD [address] [place], [place] [address] [place], [place] [phone] (Wo rk) Social History Tobacco Use Types Packs/Day Years Used Date Smoking Tobacco: Never Assessed Sex Assigned at Date Recorded Not on file documented as of this encounter Plan of Treatment Not on filedocumented as of this encounter Procedures Procedure Name Priority Date/Time Associated Diagnosis Comme nts WET PREP Waiting 03/13/2001 5:38 PM Results f or this DEAF/HARD OF HEARING SPECIALIST procedure are i n the results section . documented in this encounter Results WET PREP (03/13/2001 5:38 PM DEAF/HARD OF HEARING SPECIALIST) [facility] gist Method Time Signature Trichomonas No Trichomonas REGIONS seen Yeast No Yeast Found REGIONS Clue Cells No Clue Cells REGIONS seen Specimen Anatomical Collection Method Collection Time Receive d Time (Source) Location / / Volume Laterality 03/13/2001 5:38 PM 2 6:07 DEAF/HARD OF HEARING SPECIALIST PM DEAF/HARD OF HEARING SPECIALIST Rigo Abreu MD LAB_1 Performing Organization Address City/State/ZIP Code Phon e Number [address] [phone] [place], [place] [phone] documented in this encounter Visit Diagnoses Not on filedocumented in this encounter Care Teams Filer And Sander Relationship Specialty Start Date End Date Non Pn, Clinician, PCP - General 06/05/14 10/14/15 [place] [address] documented as of this encounter
--- OUTSIDE RECORDS SUMMARY | 2022-01-07 14:36 | XMS_ITS | Encounter Summary ---
:1980 Author Organization [place] Address [address] [place] [address]. [place] [address] Care Team Providers Name Role Phone Bebeto Roth MD Unavailable Astrid Rios PA-C Unavailable Francisco Metz MD Primary Care Provider [phone] Reason for Visit Reason Comments Miscarriage confirmed by [facility] on February 14. Has US results with her. Now having very heavy bleedi ng with golfball sized clots. Encounter Details Date Type Department Care Team Description 02/18/2019 Emergency [facility] Miguel Angel Collins MD [facility] [address] [address] [place] [phone] Social History Tobacco Use Types Packs/Day Years Used Date Smoking Tobacco: Never Smokeless Tobacco: Never Alcohol Use Standard Drinks/Week Comments No 0 (1 standard drink = 0.6 oz pure alcoho l) Sex Assigned at Date Recorded Not on file documented as of this encounter Last Filed Vital Signs Vital Sign Reading Time Taken Comments Blood Pressure 94/56 02/18/2019 7:21 PM CRIPPLE CHASER Pulse 56 02/18/2019 7:21 PM CRIPPLE CHASER Temperature 36.9 ??C (98.4 ??F) 02/18/2019 3:50 PM CRIPPLE CHASER Respiratory Rate 16 02/18/2019 7:21 PM CRIPPLE CHASER Oxygen Saturation 94% 02/18/2019 7:21 PM CRIPPLE CHASER Inhaled Oxygen Concentration - - Weight 73.5 kg (162 lb) 02/18/2019 3:50 PM CRIPPLE CHASER Height - - Body Mass Index 28.7 04/18/2018 8:42 AM CRIPPLE CHASER documented in this encounter Discharge Instructions Discharge InstructionsGrAditi Ellington MD - 02/18/2019 7:06 PM CRIPPLE CHASER Please make an appointment to follow up with physical sciences instructor--[facility] (phone: ). Call tomorrow for an appointment. PLE CHASER AttachmentsThe following attachments cannot be sent through Care Everywhere. Miscarriage, Spontaneous (Completed) (Greek)documented in this encounter Medications at Time of Discharge Medication Sig Dispensed Refills Start Date End Date ferrous sulfate (FEROSUL) Take 1 tablet (325 60 tablet 1 325 (65 Fe) MG mg) by mouth daily tabletIndications: Iron (with breakfast) deficiency anemia, unspecified iron deficiency anemia type fluticasone (FLONASE) [address] [place] 1-2 sprays 16 g 3 07/05 MCG/ACT [...] Patient presents with ??? Miscarriage confirmed by [facility] on February 14. Has US results with her. Now having very heavy bleeding with golfball sized clots. HPI Azul Garg is a 38 year old female currently 6w4d (due date 09/13/2019) presenting with 5 days of bleeding. Patient states she started bleeding about 5 days ago and was seen at [facility] on 02/15/2019. Ultrasound was done at this [...] blood every 1-3 hours. She returned to [facility]- they were unable to reach OB network control operator and sent patient here. Patient states she received Toradol around 2pm this afternoon. Patient denies fever/chills, lightheadedness/dizziness/syncope, nausea/vomiting, severe pain. Her blood type is O pos (03/07/2002, mAPPn). I have reviewed the Medications, Allergies, Past Medical and Surgical History, and Social History inthe e-volo system. Review of Systems Constitutional: Negative for [...] nursing note reviewed. Exam conducted with a supply chain development manager present. Constitutional: General: She is not in [...] sac consistent with completed spontaneous . OB network control operator reviewed ultrasound, recommended no further intervention. Hemoglobin [...] in detail. She will follow-up with the key operator clinic. RANDY COLLINS MD, MD I have reviewed the nursing notes. I have reviewed the findings, diagnosis, plan and need for follow up with the patient. Discharge Medication List as of 02/18/2019 7:05 PM Final diagnoses: Miscarriage 02/18/2019 [facility] [place], EMERGENCY DEPARTMENT Aditi Feliciano MD Resident 02/18/19 5845 Randy Collins MD 02/18/19 3756 PLE CHASER documented in this encounter Plan of Treatment Not on filedocumented as of this encounter Procedures Procedure Name Priority Date/Time Associated Comments Diagnosis US OB < 14 WEEKS STAT 02/18/2019 5:33 PM Resul ts for this SINGLE-TRANSABDOMINAL CRIPPLE CHASER proced ure are in the results section. HCG QUANTITATIVE STAT 02/18/2019 4:22 PM Resul ts for this CRIPPLE CHASER procedure are i n the results section. CBC WITH PLATELETS Routine 02/18/2019 4:22 PM Res ults for this CRIPPLE CHASER procedure are i n the results section. documented in this encounter Results US OB < 14 Weeks Single (02/18/2019 5:33 PM CRIPPLE CHASER) Anatomical Region Laterality Modality Abdomen/Pelvis Ultrasound Specimen (Source) Anatomical Location Collection Method / Collectio n Time Received Time / Laterality Volume Impressions 02/18/2019 8:17 PM CRIPPLE CHASER IMPRESSION: 1. No evidence of infiltrate finding ges tational sac, yolk sac or pole. 2. The endometrial stripe is heterogenou s and mildly thickened measuring 1.2 cm, given the patient's hi story of , cannot completely exclude retained products con ception. JOSE CRUZ MORENO MD Narrative 02/18/2019 8:17 PM CRIPPLE CHASER OBSTETRIC ULTRASOUND LESS THAN 14 WEEKS SINGLE [...] (ABNORMAL) CBC with platelets (02/18/2019 4:22 PM CRIPPLE CHASER) [facility] gist Method Time Signature WBC 11.4 (H) 4.0 - 11.0 02/18/2019 [facility] 10e9/L 5:55 PM CRIPPLE CHASER [facility] RBC Count 4.26 3.8 - 5.2 02/18/2019 [facility] 10e12/L 5:55 PM [facility] Hemoglobin 10.3 (L) 11.7 - 02/18/2019 [facility] 15.7 g/dL 5:55 PM [facility] Hematocrit 33.2 (L) 35.0 - 02/18/2019 [facility] 47.0 % 5:55 PM CRIPPLE CHASER [facility] MCV 78 78 - 100 02/18/2019 [facility] fl 5:55 PM CRIPPLE CHASER [facility] MCH 24.2 (L) 26.5 - 02/18/2019 [...] Volume Laterality 02/18/2019 4:22 PM 0 5:11 CRIPPLE CHASER PM CRIPPLE CHASER Aditi Feliciano MD LAB - BLOOD ORDERABLES Performing Organization Address City/State/ZIP Code Phon e Number [facility] [address] [place] [address] [facility] (ABNORMAL) HCG quantitative (blood) (02/18/2019 4:22 PM CRIPPLE CHASER) [facility] Method Time Signature HCG Quantitative 8,208 (H) 0 - 5 02/18/2019 [place] [facility] Serum IU/L 5:50 PM CRIPPLE CHASER [facility] Specimen Anatomical Collection Method Collection Time Receive d Time (Source) Location / / Volume Laterality Blood specimen 02/18/2019 4:22 PM 020 5:11 (specimen) CRIPPLE CHASER PM CRIPPLE CHASER Aditi Feliciano MD LAB - BLOOD ORDERABLES Performing Organization Address City/State/ZIP Code Phon e Number [facility] [address] [place] [address] [facility] documented in this encounter Visit Diagnoses Diagnosis Miscarriage Unspecified spontaneous without mention of complication documented in this encounter Administered Medications Inactive Administered Medications - up to 3 most recent administrations Medication Order MAR Action Action Date Dose Rate Site 0.9% sodium chloride BOLUS New Bag 02/18/2019 4:48 PM CRIPPLE CHASER 1,000 mLs 1000 mL/hr Intravenous, 1,000 mL, ONCE, at 1,000 mL/hr, Administer over 1 Hours, On 02/18/19 at 1646, For 1 dose NO Rho (D) immune globulin (RhoGam) need ed - mother Rh POSITIVE CONTINUOUS PRN, Starting on 02/18/19 at 1646, Until 02/18/19 at 2121 documented in this encounter Active and Recently Administered Medications Times are shown in CRIPPLE CHASER. Scheduled Medication Order 02/16/2019 02/17/2019 02/18/2019 0.9% [...] 2121 documented in this encounter Care Teams Loan Officer Relationship Specialty Start Date End Date Francisco Metz PCP - General Family Practice 11/14/18 04/02/20 MD Stevie Bebeto Roth MD Orthopedics 07/09/[address] [place] [address] Astrid Rios PA-C Physician Scale And Skip Car Operator Physician Scale And Skip Car Operator - 07/09/14 Surgical documented as of this encounter
--- OUTSIDE RECORDS SUMMARY | 2022-01-07 14:36 | XMS_ITS | Encounter Summary ---
:1980 Author Organization [place] Address [address] [facility] [place] [address] Care Team Providers Name Role Phone Bebeto [...] on filedocumented in this encounter Care Teams Cardiology Manager Relationship Specialty Start Date End Date Francisco Metz PCP - General Family Practice 11/14/18 04/02/20 MD Stevie Bebeto Roth MD Orthopedics 07/09/14 [facility] [place] [address] Astrid Rios PA-C Physician Research Professional Physician Research Professional - 07/09/14 Surgical documented as of this encounter
--- OUTSIDE RECORDS SUMMARY | 2022-01-07 14:36 | XMS_ITS | Encounter Summary ---
:1980 Author Organization [place] Address [address] [facility] [place] [address] Care Team Providers Name Role Phone Bebeto Roth MD Unavailable Astrid Rios PA-C Unavailable Francisco Metz MD Primary Care Provider [phone] Reason for Visit Reason Onset Date Comments Call To Schedule Appointment 01/09/2019 NOB appt re quest Encounter Details Date Type Department Care Team Description 01/09/2019 Telephone [facility], Call To Schedule Medicine Clinic KENNY Patterson Appointment (NOB appt [address] [place] [address], request ) [address] [place] [phone] Social History Tobacco Use Types Packs/Day Years [...] (this will be their primary OB provider). S COORDINATOR Telephone Encounter - Yesenia Flowers RN - [...] call and close encounter. Yesenia Flowers RN S COORDINATOR documented in this encounter Plan of Treatment Not on filedocumented as of this encounter Visit Diagnoses Not on filedocumented in this encounter Care Teams Division Field Inspector Relationship Specialty Start Date End Date Francisco Metz PCP - General Family Practice 11/14/18 04/02/20 MD Stevie Bebeto Roth MD Orthopedics 07/09/14 [facility] [place] [address] Astrid Rios PA-C Physician Bilingual Instructor Physician Bilingual Instructor - 07/09/14 Surgical documented as of this encounter
--- OUTSIDE RECORDS SUMMARY | 2022-01-07 14:36 | XMS_ITS | Encounter Summary ---
:1980 [facility] Address [address] [place] [address] Care Team Providers Name Role Phone Non Pn, Clinician MD Primary Care Provider Unavailable Encounter Details Date Type Department Care Team Description 03/13/2001 Orders Only Rigo Camara MD [address] [place], [place] [address] [place] [address] [phone] (Wo rk) Social History Tobacco Use Types Packs/Day Years Used Date Smoking Tobacco: Never Assessed Sex Assigned at Date Recorded Not on file documented as of this encounter Plan of Treatment Not on filedocumented as of this encounter Procedures Procedure Name Priority Date/Time Associated Comments Diagnosis URINE MICROSCOPIC Routine 03/13/2001 5:38 PM Resu lts for this HALF SOLE FITTER procedure are i n the results section. UA CONDITIONAL UC Waiting 03/13/2001 5:38 PM Resu lts for this HALF SOLE FITTER procedure are i n the results section. TEST Waiting 03/13/2001 5:38 PM Results for this (URINE) HALF SOLE FITTER procedure are i n the results section. documented in this encounter Results (ABNORMAL) URINE MICROSCOPIC (03/13/2001 5:38 PM HALF SOLE FITTER) P athologist Signature RBC'S 15 (H) 0 - 3 /hpf REGIONS WBC'S 23 (H) 0 - 5 /hpf REGIONS Bact Many REGIONS Epith, Squamous Few /hpf REGIONS Specimen Anatomical Collection Method Collection Time Receive d Time (Source) Location / / Volume Laterality 03/13/2001 5:38 PM 2 6:08 HALF SOLE FITTER PM HALF SOLE FITTER Rigo Abreu MD LAB_1 Performing Organization Address City/[facility] Phon e Number [address] [address] [place], [place] [phone] (ABNORMAL) UA CONDITIONAL UC (03/13/2001 5:38 PM HALF SOLE FITTER) Patholo gist Method Time Signature Conditional Urine Cultured REGIONS Culture Urine Comments Microscopic REGIONS exam indicated Urine Color [place] REGIONS Urine Clarity Hazy REGIONS Specific 1.013 1.005 - REGIONS [place],Ur 1.030 pH, Urine 5.0 4.5 - 8.0 [...] Volume Laterality 03/13/2001 5:38 PM 2 6:08 HALF SOLE FITTER PM HALF SOLE FITTER Rigo Abreu MD LAB_1 Performing Organization Address City/[facility] Phon e Number [address] [address] [place], [place] [phone] TEST (URINE) (03/13/2001 5:38 PM HALF SOLE FITTER) Analysis Performed At Patho logist Time Signature HCG, Urine Negative REGIONS Less than 20 mIU Specimen Anatomical Collection Method Collection Time Receive d Time (Source) Location / / Volume Laterality 03/13/2001 5:38 PM 2 6:08 HALF SOLE FITTER PM HALF SOLE FITTER Rigo Abreu MD LAB_1 Performing Organization Address [facility] Phon e Number [address] [address] [place], [place] [phone] documented in this encounter Visit Diagnoses Not on filedocumented in this encounter Care Teams Site Promotion Agent Relationship Specialty Start Date End Date Non Pn, Clinician, PCP - General 06/05/14 10/14/15 [place] [address] documented as of this encounter
--- OUTSIDE RECORDS SUMMARY | 2022-01-07 14:36 | XMS_ITS | Clinical Summary ---
:1980 Author Organization [place] Address [address] [facility] [place] [address] Care Team Providers Name Role Phone Bebeto Roth MD Unavailable Astrid Rios PA-C Unavailable Karen Veliz DO Primary Care Provider Karen Veliz DO Unavailable Allergies Active Allergy Reactions Severity Noted Date Comments Seasonal Allergies 10/04/2011 Medications Medication Sig Dispensed Refills Start Date End Date Status fluticasone (FLONASE) [address] 1-2 sprays 16 g 3 07/06/19 18 [...] be differe nt from the original. [email or web address] Problem Noted Date S/P spinal fusion 10/23/2017 Frequent UTI 12/14/2016 Anemia, iron deficiency 12/14/2016 Pain in thoracic spine 08/07/2014 Other orthopedic aftercare(V54.89) 08/07/2014 Grief 03/13/2014 Overview: Pt's boyfriend of heroin overdose d ay after 2013. Seeing [facility] for therapy Dermatofibroma of left thigh 11/22/2012 Health Long-Term 12/19/2011 Overview: Tier 0 DX V65.8 REPLACED WITH [facility]37 [facility] (05/21/2012) Anxiety 12/19/2011 Congenital scoliosis 12/19/2011 Scoliosis [...] OB PROVIDERS 1.Keri Elias 2. Eva Hogan ([phone]) CARE PLAN ?? Consults: ?? Ultrasounds: 08/03/16 [...] Comments Blood Pressure 94/56 02/18/2019 7:21 PM AIRCRAFT POWER PLANT ASSEMBLER Pulse 56 02/18/2019 7:21 PM AIRCRAFT POWER PLANT ASSEMBLER Temperature 36.9 ??C (98.4 ??F) 02/18/2019 3:50 PM AIRCRAFT POWER PLANT ASSEMBLER Respiratory Rate 16 02/18/2019 7:21 PM AIRCRAFT POWER PLANT ASSEMBLER Oxygen Saturation 94% 02/18/2019 7:21 PM AIRCRAFT POWER PLANT ASSEMBLER Inhaled Oxygen Concentration - - Weight 73.5 kg (162 lb) 02/18/2019 3:50 PM AIRCRAFT POWER PLANT ASSEMBLER Height 160 cm (5' 3) 04/18/2018 8:42 AM AIRCRAFT POWER PLANT ASSEMBLER Body Mass Index 28.7 04/18/2018 8:42 AM AIRCRAFT POWER PLANT ASSEMBLER Plan of Treatment Health Maintenance Due Date [...] 64 Years) Medical Devices Implanted Type Area Ripening Room Attendant Device Shelf Model / Serial Identifier Expiration / Lot Date Graft Bone Crush Canc 30ml [id number] Bone/Tissu N/A: Spine MUSCULOSKELET AL 08/28/2020 [id number] / Implanted: Qty: 1 on 10/23/2017 by Bebeto Roth MD at [facility] e/Biologic Thoracic HANSEN [id number] / Imp Scr [place] Legacy Breakoff Set 5.5mm Ti [id number] Metallic N/A: Spine MEDTRONIC, [id number] / Implanted: Qty: 5 on 10/23/2017 by Bebeto Roth MD at [facility] Hardware/A Thoracic INC-DANEK / nchor Axial [place] N/A: Spine MEDTRONIC [id number] / Implanted: Qty: 2 on 10/23/2017 by Bebeto Roth MD at [facility] Thoracic INC-DANEK / Explanted Type Area Ripening Room Attendant Device Shelf Model / Identifier Expiration Serial / Date Lot 5 Set Screws N/A: Spine Explanted: Qty: 1 on 10/23/2017 at [facility] Thoracic Insurance Payer Benefit Plan / Subscriber ID Effective Phone Address T [facility] [id number] 2016-Pres [phone] [address] O ADVANTAGE ent [address] [place] [address] [place] (Home) [place] [address] [place] Personal/Family Self [address] [place]) [place] [address] [place] Third Alliance Party Self 1980 [address] (Home) [place] [address] Advance Directives For more information, please contact: [phone] Latest Code Status on File Code Status Date Activated Date Inactivated Comments Full Code 10/25/2017 10:23 AM 10/27/2017 8:35 AM Code Status History Code Status Date Activated Date Inactivated Comments Full Code 10/23/2017 2:18 PM 10/25/2017 10:23 AM Full Code 03/05/2017 11:49 AM 10/23/2017 2:18 PM Care Teams Web Interface Developer Relationship Specialty Start Date End Date Karen Veliz DO PCP - General Family Medicine 04/03/202019 [place] [address] Bebeto Roth MD Orthopedics 07/09/[address] [place] [address] Astrid Rios PA-C Physician Laboratory Chemist Physician Laboratory Chemist - 07/09/14 Surgical Karen Veliz DO Assigned PCP 08/28/202019 [place] [address]
--- OUTSIDE RECORDS SUMMARY | 2022-01-07 14:36 | XMS_ITS | Encounter Summary ---
:1980 Author Organization [place] Address [address] [facility] [address] Care Team Providers Name Role Phone Bebeto Roth MD Unavailable Astrid Rios PA-C Unavailable Kenton Katz MD Unavailable Unavailable Karen Veliz DO Primary Care Provider Encounter Details Date Type Department Care Team Description 07/12/2020 Records - [facility] CONVERSION Provider, Histor ical Social History [...] 12:00 AM Result s for this VIEWS BELLING MACHINE OPERATOR procedure are i n the results section. documented in this encounter Results XR Knee Left 3 Views (03/10/2006 12:00 AM BELLING MACHINE OPERATOR) Anatomical Region Laterality Modality Thigh, Knee, Leg Left Other Specimen (Source) Anatomical Location Collection Method / Collectio n Time Received Time / Laterality Volume Narrative 03/10/2006 12:00 AM BELLING MACHINE OPERATOR See Historical Hospital Medical Record f or documentation Procedure Note Provider, Historical - 07/12/2020Formatt ing of this note might be different from the original. See Historical Hospital Medical Record f or documentation Historical Provider IMG DIAGNOSTIC IMAGING ORDER TAYLOR documented in this encounter Visit Diagnoses Not on filedocumented in this encounter Care Teams Appian Bpm Developer Relationship Specialty Start Date End Date Karen Veliz DO PCP - General Family Medicine 04/03/[address] [place] [address] Bebeto Roth MD Orthopedics 07/09/[address] [place] [address] Astrid Rios PA-C Physician Braille Translator Physician Braille Translator - 07/09/14 Surgical Kenton Katz Assigned PCP 02/02/20 08/27/20 MD Feliberto NO INFO AVAILABLE documented as of this encounter
--- OUTSIDE RECORDS SUMMARY | 2022-01-07 14:36 | XMS_ITS | Encounter Summary ---
:1980 Author Organization [place] Address [address] [facility] [place] [address] Care Team Providers Name Role Phone Bebeto Roth MD Unavailable Astrid Rios PA-C Unavailable Francisco Metz MD Primary Care Provider [phone] Francisco Metz MD Unavailable [phone] Reason for Visit Reason Comments Consult Diabetes Encounter Details Date Type Department Care Team Description 01/23/2020 Virtual Visit [facility] Kenton Katz Diet controlled [place] Endocrinolog y MD Feliberto gestational diabetes [address] [facility] NO INFO mellitus (GDM) in [place], [place] AVAILABLE third trimester [address] (Primary Dx) [phone] Social History Tobacco Use Types Packs/Day Years [...] contact Unable to assess 01/23/2020 7:04 AM ACCOUNT INSTALLATION SPECIALIST with someone who was confirmed or [...] soon as the diagnosis of is made. UNT INSTALLATION SPECIALIST documented in this encounter Progress Notes Kenton [...] would you like to be contacted at? [phone] How would you like to obtain your [...] not been able to meet with a district court judge yet. Her fiancee had COVID and she [...] [place] [id number] as an E & M code Kenton Katz M.D CC: Dr Loyola Francisco [address] [address] Kristina See CMA - 01/23/2020 1:00 PM CST Copy of OV note mailed as requested to: Dr Loyola Francisco [facility] [address] [id number] UNT INSTALLATION SPECIALIST documented in this encounter Plan of Treatment Not on filedocumented as of this encounter Visit Diagnoses Diagnosis Diet controlled gestational diabetes callum litus (GDM) in third trimester - Primary documented in this encounter Care Teams Network Intelligence Analyst Relationship Specialty Start Date End Date Francisco Metz PCP - General Family Practice 11/14/18 04/02/20 MD Stevie Bebeto Roth MD Orthopedics 07/09/[address] [place] [address] Astrid Rios PA-C Physician Commissions Manager Physician Commissions Manager - 07/09/14 Surgical Francisco Metz Assigned PCP 07/04/19 02/01/20 MD Stevie [place] [address] [place]UCIO [address] documented as of this encounter
--- OUTSIDE RECORDS SUMMARY | 2022-01-07 14:36 | XMS_ITS | Encounter Summary ---
:1980 Author Organization [place] Address [address] [facility] [place] [address] Care Team Providers Name Role Phone Bebeto Roth MD Unavailable Astrid Rios PA-C Unavailable Francisco Metz MD Primary Care Provider [phone] Francisco Metz MD Unavailable [phone] Reason for Visit Reason Onset Date Comments Referral 10/03/2019 [facility] Encounter Details Date Type Department Care Team Description 10/03/2019 Telephone [facility] Francisco Metz Referral ( [facility] MD Stevie [facility]) [address] [address] 651 [facility] [phone] [place] 2606 Social History Tobacco Use [...] would need to ok authorization, reference # [id number]. This authorization that was entered on 09/19/19 [...] referral/auth online with [facility]. Marli Gonzales Network Lead Telephone Encounter - Marli Gonzales - 10/09/2019 9:56 AM CDT 10/07/19 Attempted to reach Marium at [place], Left message on voicemail. 10/09/19 Left message on [facility] voicemail. Marli Gonzales Network Lead Telephone Encounter - Lisa Ventura - 10/03/2019 10:44 AM CDT [facility] Family Medicine phone call message - order or referral request from patient: Order or referral being requested: Referral to: [facility] At Location: [place], [place] Additional Details: Marium calling from [facility] and [facility] to advise that [facility] denied their claim for patient's visit with them on 08/14/19. Marium advised that per [facility], an authorization request was sent to [facility] (by [facility]) authorizing the patient to receive care in [place]. Authorization request # [id number]. Referral only -Specialty see above Location see above OK to leave a message on voice mail? Yes Primary language: [place] Government Employee needed? No Call taken on October 03, 2019 at 10:45 AM by Lisa Ventura Order request route to P SMI TRIAGE Referrals Route to P SMI (Green/Johnston/Purple) OPHTHALMIC SURGICAL ASSISTANT documented in this encounter Plan of Treatment Not on filedocumented as of this encounter Visit Diagnoses Not on filedocumented in this encounter Care Teams Mobile Game Engineer Relationship Specialty Start Date End Date Francisco Metz PCP - General Family Practice 11/14/18 04/02/20 MD Stevie Bebeto Roth MD Orthopedics 07/09/14 [address] [facility] [address] [place] [address] Astrid Rios PA-C Physician Credit Control Officer Physician Credit Control Officer - 07/09/14 Surgical Francisco Metz Assigned PCP 07/04/19 02/01/20 MD Stevie [address] [address] [address] [place] [address] [place] [address] documented as of this encounter
--- OUTSIDE RECORDS SUMMARY | 2022-01-07 14:36 | XMS_ITS | Encounter Summary ---
:1980 Author Organization [place] Address [address] [facility] [place] [address] Care Team Providers Name Role Phone Bebeto [...] on filedocumented in this encounter Care Teams Rn Private Duty Relationship Specialty Start Date End Date Francisco Metz PCP - General Family Practice 11/14/18 04/02/20 MD Stevie Bebeto Roth MD Orthopedics 07/09/14 [facility] [place] [address] Astrid Rios PA-C Physician Human Resource Professional Physician Human Resource Professional - 07/09/14 Surgical documented as of this encounter
--- OUTSIDE RECORDS SUMMARY | 2022-01-07 14:36 | XMS_ITS | Encounter Summary ---
:1980 Author Organization [place] Address [address] [place] [address] Care Team Providers Name Role Phone Unassigned, Provider Primary Care Provider Unavailable Encounter Details Date Type Department Care Team Description 03/13/2001 Office Visit [facility] UTI; [address] [facility]. [place]; [place] [address] SCREEN FOR VENEREAL DIS; [phone] PREG EXAM-PREG UNCONFIRM Social History Tobacco Use [...] patient is to follow up at the [facility] or [facility] in 10 days. adf Dictated: 03/13/2001 18:42:23 Cristóbal Bull MD Transcribed: 03/13/2001 21:08:44 Patient seen with Rigo Abreu MD Doc #: [id number] Page 2 Patient Name: AZUL TELLEZ Visit Date: 03/13/2001 EMERGENCY MEDICINE NOTE CONFIDENTIAL MEDICAL RECORD [address] [address] Page 1 Patient: AZUL TELLEZ Location: [facility]PN: Date of : 1980 Visit Date: 03/13/2001 EMERGENCY MEDICINE NOTE ITUTE DIRECTOR documented in this encounter Plan of Treatment Not on filedocumented as of this encounter Visit Diagnoses Diagnosis Urinary tract infection, site not specif ied Dysuria Screening examination for venereal disea se examination or test documented in this encounter Care Teams Corporate Learning Consultant Relationship Specialty Start Date End Date Unassigned, Provider PCP - General 04/16/00 11/27/[address] [place] [address] documented as of this encounter
--- OUTSIDE RECORDS SUMMARY | 2022-01-07 14:36 | XMS_ITS | Encounter Summary ---
:1980 Author Organization [place] Address [address] [facility] [place] [address] Care Team Providers Name Role Phone Bebeto Roth MD Unavailable Astrid Rios PA-C Unavailable Francisco Metz MD Primary Care Provider Encounter Details Date Type Department Care Team Description 01/09/2019 Orders Only [facility] defic[facility] Medicine Clinic MD Tamar anemia, unspecified [address] [place], NO INFO AVAILABLE iron deficiency [address] 12/22/2021 anemia type (Primary [place], [place] [address] Dx) [phone] Social History Tobacco Use Types Packs/Day Years [...] Primary documented in this encounter Care Teams Event Sales Assistant Relationship Specialty Start Date End Date Francisco Metz PCP - General Family Practice 11/14/18 04/02/20 MD Stevie Bebeto Roth MD Orthopedics 07/09/[address] [place] [address] Astrid Rios PA-C Physician Proof Passer Physician Proof Passer - 07/09/14 Surgical documented as of this encounter
--- OUTSIDE RECORDS SUMMARY | 2022-01-07 14:36 | XMS_ITS | Encounter Summary ---
:1980 Author Organization [place] Address [facility] [address] Care Team Providers Name Role Phone Bebeto Roth MD Unavailable Astrid Rios PA-C Unavailable Francisco Metz MD Primary Care Provider [phone] Francisco Metz MD Unavailable [phone] Encounter Details Date Type Department Care Team [...] contact Unable to assess 01/23/2020 7:04 AM VIDEO LIBRARY ASSISTANT with someone who was confirmed or suspected to have Coronavirus / COVID-19? documented as of this encounter Plan of Treatment Not on filedocumented as of this encounter Visit Diagnoses Not on filedocumented in this encounter Care Teams Fleet Director Relationship Specialty Start Date End Date Francisco Metz PCP - General Family Practice 11/14/18 04/02/20 MD Stevie Bebeto Roth MD Orthopedics 07/09/[address] [place], [place] [address] Astrid Rios PA-C Physician Resource Development Director Physician Resource Development Director - 07/09/14 Surgical Francisco Metz Assigned PCP 07/04/19 02/01/20 MD Stevie [address] [id number] [place] [address] [place] LUC[place] [address] documented as of this encounter
--- OUTSIDE RECORDS SUMMARY | 2022-01-07 14:37 | XMS_ITS | Encounter Summary ---
:1980 Author Organization [place] Address [facility] [address] Care Team Providers Name Role Phone Bebeto Roth MD Unavailable Astrid Rios PA-C Unavailable Keri Elias MD Primary Care Provider Unavailable Reason for Visit Reason Onset Date Comments Refill Request 11/09/2017 Encounter Details Date Type Department Care Team Description 11/09/2017 Refill [facility] Orthopaedic Clinic Bebeto Roth MD Refill Request [address] 4[address] Floor [place], [place] [address] [place] [address] [phone] Social History Tobacco Use Types Packs/Day Years [...] status documented in this encounter Care Teams Minister Helper Relationship Specialty Start Date End Date Keri Elias PCP - General Family Practice 03/12/15 9 MD Ira Glez, Bebeto Hartman MD Orthopedics 07/09/[address] [place] [address] Astrid Rios PA-C Physician Driller Brake Lining Physician Driller Brake Lining - 07/09/14 Surgical documented as of this encounter
--- OUTSIDE RECORDS SUMMARY | 2022-01-07 14:37 | XMS_ITS | Encounter Summary ---
:1980 Author Organization [place] Address [facility]0 [place] [address] Care Team Providers Name Role Phone Bebeto Roth MD Unavailable Astrid Rios PA-C Unavailable Keri Elias MD Primary Care Provider Unavailable Reason for Visit Reason Comments RECHECK DOS 10/23/17 extrention of jf mcintosh, follow up scoliosis Encounter Details Date Type Department Care Team Description 04/18/2018 Office Visit [facility] Orthopaedic [facility]oli[facility] of thoracolumbar region (Primary Dx); Clinic MD Devan History of spinal fusion [address] [place] [address] [address]th [address] [place] [address] [phone] Social History Tobacco Use Types Packs/Day Years [...] 68.9 kg (152 lb) 04/18/2018 8:42 AM DISASSEMBLER PRODUCT Height 160 cm (5' 3) 04/18/2018 8:42 AM DISASSEMBLER PRODUCT Body Mass Index 26.93 04/18/2018 8:42 AM DISASSEMBLER PRODUCT documented in this encounter Progress Notes Bebeto Roth MD - 04/18/2018 8:45 AM CST [facility] Orthopedics Bebeto Roth MD 04/18/2018 Name: [...] and developed the plan. Bebeto Roth MD SSEMBLER PRODUCT documented in this encounter Nursing Notes Quincy Rosas, DODIE - 04/18/2018 8:45 AM CST Reason For Visit: Chief Complaint Patient presents with ??? RECHECK DOS 10/23/17 extrention of fusion, follow up scoliosis Primary MD: Keri Elias MD: self Bracelet Form Coverer? No Date of surgery: 10/23/17 Type of [...] data might be hidden Quincy Rosas ATC SSEMBLER PRODUCT documented in this encounter Plan of Treatment Not on filedocumented as of this encounter Visit Diagnoses Diagnosis Adolescent idiopathic scoliosis of thora [facility] - Primary Scoliosis (and kyphoscoliosis), idiopath ic History of spinal fusion Arthrodesis status documented in this encounter Care Teams Desk Director Relationship Specialty Start Date End Date Keri Elias PCP - General Family Practice 03/12/15 9 MD Ira Glez David Wayne, MD Orthopedics 07/09/[address] [place] [address] Astrid Rios PA-C Physician Squeak Rattle And Leak Repairer Physician Squeak Rattle And Leak Repairer - 07/09/14 Surgical documented as of this encounter
--- OUTSIDE RECORDS SUMMARY | 2022-01-07 14:37 | XMS_ITS | Encounter Summary ---
:1980 Author Organization [place] Address [address] [facility] [place] [address] Care Team Providers Name Role Phone Bebeto Roth MD Unavailable Astrid Rios PA-C Unavailable Keri Elias MD Primary Care Provider Unavailable Reason for Referral Diagnostic Imaging XR - Closed Specialty Diagnoses / Procedures Referred By Contact Refer red To Contact Diagnoses Bebeto Rene MD Procedures XR Six Foot Standing Extremities [address] [place], [place] [address] Referral ID Status Reason Start Date Expiration Date Visits Requ ested Visits Authorized [id number] Closed 04/17/2018 04/17/2019 1 1 HARGE DOOR OPERATOR Diagnostic Imaging XR - Closed Specialty Diagnoses / Procedures Referred By Contact Refer red To Contact Diagnoses Bebeto Rene MD Procedures XR Spine Complete Scoliosis 2 Views [address] [place], [place] [address] Referral ID Status Reason Start Date Expiration Date Visits Requ ested Visits Authorized [id number] Closed 04/17/2018 04/17/2019 1 1 HARGE DOOR OPERATOR Encounter Details Date Type Department Care Team Description 04/17/2018 Orders Only [facility] Orthopaedic Bebeto Roth is (Primary Dx) Clinic MD Devan 9 [facility] [address] [place] [address] [phone] Social History Tobacco Use Types Packs/Day Years [...] Resu lts for this SCOLIOSIS 2 VIEWS DISCHARGE DOOR OPERATOR procedure are in the results section. XR SIX FOOT STANDING Routine 04/18/2018 9:23 AM Scoliosis R esults for this EXTREMITIES DISCHARGE DOOR OPERATOR procedure are i n the results section. documented in this encounter Results XR Spine Complete Scoliosis 2 Views (04/18/2018 9:23 AM DISCHARGE DOOR OPERATOR) Anatomical Region Laterality Modality Spine Computed Radiography Specimen (Source) Anatomical Location Collection Method / Collectio n Time Received Time / Laterality Volume Impressions 04/18/2018 3:19 PM DISCHARGE DOOR OPERATOR Impression: 1. Fusion hardware from T4 through L3 wi thout evidence of hardware complication. 2. Mild convex right curvature of the th oracolumbar/lumbar spine with apex at T12. 3. No substantial global coronal imbalan ce. 4. Normal sagittal vertical axis. MADALYN ZARAGOZA MD Narrative 04/18/2018 3:19 PM DISCHARGE DOOR OPERATOR Exam: XR SIX FOOT STANDING EXTREMITIES, XR [...] No substantial global coronal imbalance. Sagittal Vertical [place] (A vertical line drawn from the center [...] No substantial global coronal imbalance. Sagittal Vertical [place] (A vertical line drawn from the center [...] Six Foot Standing Extremities (04/18/2018 9:23 AM DISCHARGE DOOR OPERATOR) Anatomical Region Laterality Modality Lower Extremity Computed Radiography Specimen (Source) Anatomical Location Collection Method / Collectio n Time Received Time / Laterality Volume Impressions 04/18/2018 3:19 PM DISCHARGE DOOR OPERATOR Impression: 1. Fusion hardware from T4 through L3 wi thout evidence of hardware complication. 2. Mild convex right curvature of the th oracolumbar/lumbar spine with apex at T12. 3. No substantial global coronal imbalan ce. 4. Normal sagittal vertical axis. MADALYN ZARAGOZA MD Narrative 04/18/2018 3:19 PM DISCHARGE DOOR OPERATOR Exam: XR SIX FOOT STANDING EXTREMITIES, XR [...] No substantial global coronal imbalance. Sagittal Vertical [place] (A vertical line drawn from the center [...] No substantial global coronal imbalance. Sagittal Vertical [place] (A vertical line drawn from the center [...] ic documented in this encounter Care Teams User Experience Lead Relationship Specialty Start Date End Date Keri Elias PCP - General Family Practice 03/12/15 9 MD Ira Glez David Wayne, MD Orthopedics 07/09/[address] [place] [address] Astrid Rios PA-C Physician Laborer Shellfish Processing Physician Laborer Shellfish Processing - 07/09/14 Surgical documented as of this encounter
--- OUTSIDE RECORDS SUMMARY | 2022-01-07 14:37 | XMS_ITS | Encounter Summary ---
:1980 Author Organization [place] Address [address] [facility] [place] [address] Care Team Providers Name Role Phone Bebeto Roth MD Unavailable Astrid Rios PA-C Unavailable Keri Elias MD Primary Care Provider Unavailable Reason for Referral Diagnostic Imaging XR - Closed Specialty Diagnoses / Procedures Referred By Contact Refer red To Contact Diagnoses Scoliosis Kyphosis (acquired) (postural) Bebeto Roth MD Procedures XR Six Foot Standing Extremities [address] [place], [place] [address] Referral ID Status Reason Start Date Expiration Date Visits Requ ested Visits Authorized [id number] Closed 01/10/2018 01/10/2019 1 1 ER JOINER Diagnostic Imaging XR - Closed Specialty Diagnoses / Procedures Referred By Contact Refer red To Contact Diagnoses Scoliosis Kyphosis (acquired) (postural) Bebeto Roth MD Procedures XR Spine Complete Scoliosis [address] Views [address] [place], [place] [address] Referral ID Status Reason Start Date Expiration Date Visits Requ ested Visits Authorized [id number] Closed 01/10/2018 01/10/2019 1 1 ER JOINER Encounter Details Date Type Department Care Team Description 01/10/2018 Orders Only [facility] Orthopaedic Bebeto Roth is (Primary Dx); Clinic MD Devan Kyphosis (acquired) (postural) [address] [place] [address] [phone] Social History Tobacco Use Types Packs/Day Years [...] Complete Scoliosis 2 Views (01/17/2018 8:41 AM ZIPPER JOINER) Anatomical Region Laterality Modality Spine Computed Radiography Specimen (Source) Anatomical Location Collection Method / Collectio n Time Received Time / Laterality Volume Impressions 01/17/2018 2:07 PM ZIPPER JOINER Impression: 1. Fusion instrumentation from T4 throug h L3 without evidence of hardware complication. 2. Mild convex right curvature of the th oracolumbar/lumbar spine with apex at T12. 3. No substantial global coronal imbalan ce. 4. Normal sagittal vertical axis. MADALYN ZARAGOZA MD Narrative 01/17/2018 2:07 PM ZIPPER JOINER Exam: XR SPINE COMPLETE SCOLIOSIS 2 VW, [...] No substantial global coronal imbalance. Sagittal Vertical [place] (A vertical line drawn from the center [...] No substantial global coronal imbalance. Sagittal Vertical [place] (A vertical line drawn from the center [...] Six Foot Standing Extremities (01/17/2018 8:40 AM ZIPPER JOINER) Anatomical Region Laterality Modality Lower Extremity Computed Radiography Specimen (Source) Anatomical Location Collection Method / Collectio n Time Received Time / Laterality Volume Impressions 01/17/2018 2:07 PM ZIPPER JOINER Impression: 1. Fusion instrumentation from T4 throug h L3 without evidence of hardware complication. 2. Mild convex right curvature of the th oracolumbar/lumbar spine with apex at T12. 3. No substantial global coronal imbalan ce. 4. Normal sagittal vertical axis. MADALYN ZARAGOZA MD Narrative 01/17/2018 2:07 PM ZIPPER JOINER Exam: XR SPINE COMPLETE SCOLIOSIS 2 VW, [...] No substantial global coronal imbalance. Sagittal Vertical [place] (A vertical line drawn from the center [...] No substantial global coronal imbalance. Sagittal Vertical [place] (A vertical line drawn from the center [...] (postural) documented in this encounter Care Teams Director Of Convention Services Relationship Specialty Start Date End Date Keri Elias PCP - General Family Practice 03/12/15 9 MD Ira Glez, Bebeto Hartman MD Orthopedics 07/09/14 [facility] [address] [address] Astrid Rios PA-C Physician Beef Lugger Physician Beef Lugger - 07/09/14 Surgical documented as of this encounter
--- OUTSIDE RECORDS SUMMARY | 2022-01-07 14:37 | XMS_ITS | Encounter Summary ---
:1980 Author Organization [place] Address [address] [facility] [place] [address] Care Team Providers Name Role Phone Bebeto Roth MD Unavailable Astrid Rios PA-C Unavailable Francisco Metz MD Primary Care Provider [phone] Reason for Referral Diagnostic Imaging XR (Routine) - Closed Specialty Diagnoses / Procedures Referred By Contact Refer red To Contact Diagnoses Adolescent idiopathic scoliosis of thoracolumbar region Bebeto Roth MD Procedures XR Spine Complete Scoliosis [address] [place], [place] [address] Referral ID Status Reason Start Date Expiration Date Visits Requ ested Visits Authorized [id number] Closed 12/31/2018 12/31/2019 1 1 TRONIC SCALE SUBASSEMBLER Diagnostic Imaging XR (Routine) - Closed Specialty Diagnoses / Procedures Referred By Contact Refer red To Contact Diagnoses Adolescent idiopathic scoliosis of thoracolumbar region Bebeto Roth MD Procedures XR Six Foot Standing Extremities [address] [place], [place] [address] Referral ID Status Reason Start Date Expiration Date Visits Requ ested Visits Authorized [id number] Closed 12/31/2018 12/31/2019 1 1 TRONIC SCALE SUBASSEMBLER Encounter Details Date Type Department Care Team Description 12/31/2018 Orders Only [facility] Orthopaedic Bebeto Roth is (Primary Dx); Clinic MD Devan Adolescent idiopathic scoliosis of thora [facility] [address] [facility] [address] [place] [id number] Social History Tobacco Use Types Packs/Day Years [...] ic Adolescent idiopathic scoliosis of thora [facility] Scoliosis (and kyphoscoliosis), idiopath ic documented in this encounter Care Teams Table Assembler Relationship Specialty Start Date End Date Francisco Metz PCP - General Family Practice 11/14/18 04/02/20 MD Stevie Bebeto Roth MD Orthopedics 07/09/14 [facility] [place] [address] Astrid Rios PA-C Physician Copyman Physician Copyman - 07/09/14 Surgical documented as of this encounter
--- OUTSIDE RECORDS SUMMARY | 2022-01-07 14:37 | XMS_ITS | Encounter Summary ---
:1980 Author Organization [place] Address [facility] [place] [address] Care Team Providers Name Role Phone Bebteo Roth MD Unavailable Astrid Rios PA-C Unavailable Keri Elias MD Primary Care Provider Unavailable Reason for Visit Diagnostic Imaging XR - Closed Specialty Diagnoses / Procedures Referred By Contact Refer red To Contact Diagnoses Scoliosis Kyphosis (acquired) (postural) Bebeto Roth MD Procedures XR Six Foot Standing Extremities [address] [place], [place] [address] Referral ID Status Reason Start Date Expiration Date Visits Requ ested Visits Authorized [id number] Closed 01/10/2018 01/10/2019 1 1 Encounter Details Date Type Department Care Team Description 01/17/2018 [facility] Appointment [facility] Bebeto Roth Scdenny iosis; Center Xray MD Devan Kyphosis (acquired) (postural) 909 [facility] [address] 1st [address] [facility] [address] [place] [address] [phone] Social History Tobacco Use Types Packs/Day Years [...] AM Lin s Results for this EXTREMITIES 911 OPERATOR Kyphosis (acquired) procedur e are in (postural) the results section. documented in this encounter Results XR Six Foot Standing Extremities (01/17/2018 8:40 AM 911 OPERATOR) Anatomical Region Laterality Modality Lower Extremity Computed Radiography Specimen (Source) Anatomical Location Collection Method / Collectio n Time Received Time / Laterality Volume Impressions 01/17/2018 2:07 PM 911 OPERATOR Impression: 1. Fusion instrumentation from T4 throug h L3 without evidence of hardware complication. 2. Mild convex right curvature of the th oracolumbar/lumbar spine with apex at T12. 3. No substantial global coronal imbalan ce. 4. Normal sagittal vertical axis. MADALYN ZARAGOZA MD Narrative 01/17/2018 2:07 PM 911 OPERATOR Exam: XR SPINE COMPLETE SCOLIOSIS 2 VW, [...] No substantial global coronal imbalance. Sagittal Vertical [place] (A vertical line drawn from the center [...] No substantial global coronal imbalance. Sagittal Vertical [place] (A vertical line drawn from the center [...] (postural) documented in this encounter Care Teams Hedge Fund Manager Relationship Specialty Start Date End Date Keri Elias PCP - General Family Practice 03/12/15 9 MD Ira Glez David Wayne, MD Orthopedics 07/09/[address] [place] [address] Astrid Rios PA-C Physician Chinese Language Professor Physician Chinese Language Professor - 07/09/14 Surgical documented as of this encounter
--- OUTSIDE RECORDS SUMMARY | 2022-01-07 14:37 | XMS_ITS | Encounter Summary ---
:1980 Author Organization [place] Address [facility] [place] [address] Care Team Providers Name Role Phone Bebeto Roth MD Unavailable Astrid Rios PA-C Unavailable Keri Elias MD Primary Care Provider Unavailable Reason for Visit Diagnostic Imaging XR - Closed Specialty Diagnoses / Procedures Referred By Contact Refer red To Contact Diagnoses Scoliosis Bebeto Roth MD Procedures XR Six Foot Standing Extremities [address] [place], [place] [address] Referral ID Status Reason Start Date Expiration Date Visits Requ ested Visits Authorized [id number] Closed 04/17/2018 04/17/2019 1 1 Encounter Details Date Type Department Care Team Description 04/18/2018 Ancillary Procedure [facility] Chan Roth Xray MD Devan 9 [facility] [address] 1[address] [place] [address] [phone] Social History Tobacco Use Types Packs/Day Years [...] AM Scoliosis R esults for this EXTREMITIES BATTERY TESTER FIELD procedure are i n the results section. documented in this encounter Results XR Six Foot Standing Extremities (04/18/2018 9:23 AM BATTERY TESTER FIELD) Anatomical Region Laterality Modality Lower Extremity Computed Radiography Specimen (Source) Anatomical Location Collection Method / Collectio n Time Received Time / Laterality Volume Impressions 04/18/2018 3:19 PM BATTERY TESTER FIELD Impression: 1. Fusion hardware from T4 through L3 wi thout evidence of hardware complication. 2. Mild convex right curvature of the th oracolumbar/lumbar spine with apex at T12. 3. No substantial global coronal imbalan ce. 4. Normal sagittal vertical axis. MADALYN ZARAGOZA MD Narrative 04/18/2018 3:19 PM BATTERY TESTER FIELD Exam: XR SIX FOOT STANDING EXTREMITIES, XR [...] No substantial global coronal imbalance. Sagittal Vertical [place] (A vertical line drawn from the center [...] No substantial global coronal imbalance. Sagittal Vertical [place] (A vertical line drawn from the center [...] on filedocumented in this encounter Care Teams Mold Filling Operator Relationship Specialty Start Date End Date Keri Elias PCP - General Family Practice 03/12/15 9 MD Ira Glez David Wayne, MD Orthopedics 07/09/14 [facility] [address] [place] [address] Astrid Rios PA-C Physician Vehicle Safety Inspector Physician Vehicle Safety Inspector - 07/09/14 Surgical documented as of this encounter
--- OUTSIDE RECORDS SUMMARY | 2022-01-07 14:37 | XMS_ITS | Encounter Summary ---
:1980 Author Organization [place] Address [facility]0 [facility] [place] [address] Care Team Providers Name Role Phone Bebeto Roth MD Unavailable Astrid Rios PA-C Unavailable Keri Elias MD Primary Care Provider Unavailable Reason for Visit Diagnostic Imaging XR - Closed Specialty Diagnoses / Procedures Referred By Contact Refer red To Contact Diagnoses Scoliosis Kyphosis (acquired) (postural) Bebeto Roth MD Procedures XR Spine Complete Scoliosis [address] [place], [place] [address] Referral ID Status Reason Start Date Expiration Date Visits Requ ested Visits Authorized [id number] Closed 01/10/2018 01/10/2019 1 1 Encounter Details Date Type Department Care Team Description 01/17/2018 Radiant Appointment [facility] Bebeto Roth Scol iosis; Center Xray MD Devan Kyphosis (acquired) (postural) 909 [facility] SE [address] 1[address] [facility], [address] [place] [address] [phone] Social History Tobacco Use Types Packs/Day Years [...] Scoliosis Results for this SCOLIOSIS 2 VIEWS SOCIAL SCIENCES PROFESSOR Kyphosis (acquired) pro cedure are in (postural) the results section. documented in this encounter Results XR Spine Complete Scoliosis 2 Views (01/17/2018 8:41 AM SOCIAL SCIENCES PROFESSOR) Anatomical Region Laterality Modality Spine Computed Radiography Specimen (Source) Anatomical Location Collection Method / Collectio n Time Received Time / Laterality Volume Impressions 01/17/2018 2:07 PM SOCIAL SCIENCES PROFESSOR Impression: 1. Fusion instrumentation from T4 throug h L3 without evidence of hardware complication. 2. Mild convex right curvature of the th oracolumbar/lumbar spine with apex at T12. 3. No substantial global coronal imbalan ce. 4. Normal sagittal vertical axis. MADALYN ZARAGOZA MD Narrative 01/17/2018 2:07 PM SOCIAL SCIENCES PROFESSOR Exam: XR SPINE COMPLETE SCOLIOSIS 2 VW, [...] No substantial global coronal imbalance. Sagittal Vertical [place] (A vertical line drawn from the center [...] No substantial global coronal imbalance. Sagittal Vertical [place] (A vertical line drawn from the center [...] (postural) documented in this encounter Care Teams Farmworker Grain Relationship Specialty Start Date End Date Keri Elias PCP - General Family Practice 03/12/15 9 [facility] Ira echavarria David Wayne, MD Orthopedics 07/09/[address] [place] [address] Astrid Rios PA-C Physician Billet Cutter Physician Billet Cutter - 07/09/14 Surgical documented as of this encounter
--- OUTSIDE RECORDS SUMMARY | 2022-01-07 14:37 | XMS_ITS | Encounter Summary ---
:1980 Author Organization [place] Address [address] [facility] [address] Care Team Providers Name Role Phone Bebeto Roth MD Unavailable Astrid Rios PA-C Unavailable Keri Elias MD Primary Care Provider Unavailable Reason for Visit Reason Onset Date Comments Refill Request 11/06/2017 Encounter Details Date Type Department Care Team Description 11/06/2017 [facility] Bebeto Roth, Refill Request 909 [facility] 4th Floor [address] [place], [place] [phone] [place] [address] (Wo rk) Social History Tobacco [...] 11:39 AM CDT Refilled to [facility] in [place]. Telephone Encounter - Joe Deng - 11/09/2017 11:30 AM CDT [facility] Call Center Phone Message May a detailed message be left on voicemail: yes Reason for Call: Medication Refill Request Has the patient contacted the pharmacy for the refill? Yes Name of medication being requested: Kirsten Provider who prescribed the medication: Bebeto Roth Pharmacy: Please mail to pt Date medication is needed: Not a cheney Action Taken: Message routed to: [facility] ([facility]opedics [facility]phone [facility] [place] this afternoon. Telephone Encounter - Yamilka Rader - 11/06/2017 7:17 AM CDT [facility] Phone Message May a detailed message [...] - Please call pt when ready for pick remover - Will be out by tomorrow Date medication is needed: KEMI Action Taken: Message routed to: [facility] ([facility]): Orthopedics documented in this encounter Plan of Treatment Not on filedocumented as of this encounter Visit Diagnoses Diagnosis S/P spinal fusion Arthrodesis status documented in this encounter Care Teams Animal Cruelty Investigator Relationship Specialty Start Date End Date Keri Elias PCP - General Family Practice 03/12/15 9 MD Ira Glez David Wayne, MD Orthopedics 07/09/14 [address] [place] [address] Astrid Rios PA-C Physician Studio Set Up Worker Physician Studio Set Up Worker - 07/09/14 Surgical documented as of this encounter
--- OUTSIDE RECORDS SUMMARY | 2022-01-07 14:37 | XMS_ITS | Encounter Summary ---
:1980 Author Organization [place] Address [address] [place] [address] Care Team Providers Name Role Phone Bebeto Roth MD Unavailable Astrid Rios PA-C Unavailable Keri Elias MD Primary Care Provider Unavailable Reason for Visit Reason Onset Date Comments Opioid Refill 11/22/2017 Oxycodone and ROBAXI N Encounter Details Date Type Department Care Team Description 11/22/2017 [facility] Bebeto Roth Opioid Refill Clinic MD Devan (Oxycodone and ROBAXIN) [address] [place] [address] [place] [address] [phone] Social History Tobacco Use Types Packs/Day Years Used Date Smoking Tobacco: Never Smokeless Tobacco: Never Alcohol Use Standard Drinks/Week Comments No 0 (1 standard drink = 0.6 oz pure alcoho l) Sex Assigned at Date Recorded Not on file documented as of this encounter Miscellaneous Notes Telephone Encounter - Rm Aries Skinner - 11/22/2017 10:46 AM CDT [facility] Call Center Phone Message May a detailed message be left on voicemail: yes Reason for Call: Medication Refill Request Has the patient contacted the pharmacy for the refill? Yes Name of medication being requested: ROBAXIN & Oxycodone Provider who prescribed the medication: Dr. Rtoh Pharmacy: Mailed to Home Date medication is [...] status documented in this encounter Care Teams Chrome Worker Relationship Specialty Start Date End Date Keri Elias PCP - General Family Practice 03/12/15 9 MD Ira Glez David Wayne, MD Orthopedics 07/09/[address] [place] [address] Astrid Rios PA-C Physician Senior Manager Quality Assurance Physician Senior Manager Quality Assurance - 07/09/14 Surgical documented as of this encounter
--- OUTSIDE RECORDS SUMMARY | 2022-01-07 14:37 | XMS_ITS | Encounter Summary ---
:1980 Author Organization [place] Address [facility] [address] Care Team Providers Name Role Phone Bebeto Roth MD Unavailable Astrid Rios PA-C Unavailable Keri Elias MD Primary Care Provider Unavailable Reason for Visit Reason Comments Surgical Followup 12 wk pop DOS 10/23/17 Surgical Followup Encounter Details Date Type Department Care Team Description 01/17/2018 Office Visit [facility] Orthopaedic Bebeto Roth S/P spi nal fusion Clinic MD Devan (Primary Dx) 9 [place] [address] 4[address] [place] [id number] Social History Tobacco Use Types Packs/Day Years Used Date Smoking Tobacco: Never Smokeless Tobacco: Never Alcohol Use Standard Drinks/Week Comments No 0 (1 standard drink = 0.6 oz pure alcoho l) Sex Assigned at Date Recorded Not on file documented as of this encounter Progress Notes Bebeto Roth MD - 01/17/2018 7:45 AM CST [facility] Orthopedics Bebeto Roth MD 01/17/2018 Name: Azul [...] or symptoms distally. SRS 64% KYLEE: 12 Csxufk20: 32 Pain scale: 2.5/10 Physical Examination: Focused [...] No Joint stiffness: No Bone fracture: No PING MACHINE OPERATOR documented in this encounter Nursing Notes Catherine Peralta, ATC - 01/17/2018 7:45 AM CST Reason For Visit: Chief Complaint Patient presents with ??? Spine - Surgical Followup ??? Surgical Followup 12 wk pop DOS 10/23/17 Primary MD: Keri Elias MD: Self Referred ?? County Treasurer? 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 Work [...] data might be hidden Catherine Peralta ATC PING MACHINE OPERATOR documented in this encounter Plan of Treatment Not on filedocumented as of this encounter Visit Diagnoses Diagnosis S/P spinal fusion - Primary Arthrodesis status documented in this encounter Care Teams Partnership Development Manager Relationship Specialty Start Date End Date Keri Elias PCP - General Family Practice 03/12/15 9 MD Ira Glez David Wayne, MD Orthopedics 07/09/[address] [place] [address] Astrid Rios PA-C Physician Embossing Tool Setter Physician Embossing Tool Setter - 07/09/14 Surgical documented as of this encounter
--- OUTSIDE RECORDS SUMMARY | 2022-01-07 14:37 | XMS_ITS | Encounter Summary ---
:1980 Author Organization [place] Address [address] [facility] [place] [address] Care Team Providers Name Role Phone Bebeto Roth MD Unavailable Astrid Rios PA-C Unavailable Keri Elias MD Primary Care Provider Unavailable Reason for Visit Reason Comments Prior Auth - Medication Ondansetron 4MG ODT Encounter Details Date Type Department Care Team Description 10/30/2017 Documentation Only [facility] Awa Wilcox Prior Auth - [address] [facility] MarthaBLAYNE [place] [address] 4 [facility] (Ondansetron 4MG [phone] SE ODT) [place] [address] Social History Tobacco Use Types [...] I called pt;. & gave her the phone#[phone] for the Medication Prior Auth. Dept. Triage stated this AM pharmacy request was faxed to Prior Auth dept. Pt. Will F/U with them. She states still has slight nausea after surgery & Zofran helps. RTC [id number]. S.O./L:Michelle Deras RN. Laureen Simmons RN - 11/13/2017 11:44 AM CDT [facility] Call Center Phone Message May a detailed message be left on voicemail: yes Reason for Call: Medication Question or concern regarding medication Prescription Clarification Name of Medication: ondansetron (ZOFRAN-ODT) 4 MG ODT tab Prescribing Provider: Dr. Roth Pharmacy: [facility] What on the order needs clarification? Patient calling, [facility] pharmacy has been sending PA [...] Appeal Info: Prescription Claim Appeals 109 - [facility] [employer] [address] [address] [place] [address] Fax: Appeal: No Appeal Status:n/a Copay: $6.16 [place] Filled: Yes - Per prescriber, patient was discharge with a quantity that complies with insurance limitations. Insurance: [employer] Commercial - [facility] Submitted Via: Stephan Lopez [place] [facility] Liaison [facility] [address] [place] [address], [place] [address] [email or web address] [email or web address] Pager: [phone] documented in this encounter Plan of Treatment Not on filedocumented as of this encounter Visit Diagnoses Not on filedocumented in this encounter Care Teams Hand Dry Cleaner Relationship Specialty Start Date End Date Keri Elias PCP - General Family Practice 03/12/15 9 MD Ira Glez David Wayne, MD Orthopedics 07/09/[address] [place] [address] Astrid Rios PA-C Physician Commissioned Fire Officer Physician Commissioned Fire Officer - 07/09/14 Surgical documented as of this encounter
--- OUTSIDE RECORDS SUMMARY | 2022-01-07 14:37 | XMS_ITS | Encounter Summary ---
:1980 Author Organization [place] Address [address] [facility] [place] [address] Care Team Providers Name Role Phone Bebeto [...] on filedocumented in this encounter Care Teams Firewood Cutter Relationship Specialty Start Date End Date Francisco Metz PCP - General Family Practice 11/14/18 04/02/20 MD Stevie Bebeto Roth MD Orthopedics 07/09/14 [facility] [place] [address] Astrid Rios PA-C Physician Centrifugal Drier Operator Physician Centrifugal Drier Operator - 07/09/14 Surgical documented as of this encounter
--- OUTSIDE RECORDS SUMMARY | 2022-01-07 14:37 | XMS_ITS | Encounter Summary ---
:1980 Author Organization [place] Address [address] [facility] [place] [address] Care Team Providers Name Role Phone Bebeto Roth MD Unavailable Astrid Rios PA-C Unavailable Keri Elias MD Primary Care Provider Unavailable Reason for Visit Diagnostic Imaging XR - Closed Specialty Diagnoses / Procedures Referred By Contact Refer red To Contact Diagnoses S/P spinal fusion Bebeto Roth MD Procedures XR Spine Complete 2 Views [address] [place], [place] [address] Referral ID Status Reason Start Date Expiration Date Visits Requ ested Visits Authorized [id number] Closed 11/06/2017 11/06/2018 1 1 Encounter Details Date Type Department Care Team Description 12/13/2017 Radiant Appointment [facility] Imaging Bebeto Roth S/P spinal fusion Center Farhana MD Devan 9 [facility] SE [address] 1st [address] [place] [address] [phone] Social History Tobacco Use Types Packs/Day Years [...] No substantial global coronal imbalance. Sagittal Vertical [place] (A vertical line drawn from the center [...] No substantial global coronal imbalance. Sagittal Vertical [place] (A vertical line drawn from the center [...] status documented in this encounter Care Teams Key Account Executive Relationship Specialty Start Date End Date Keri Elias PCP - General Family Practice 03/12/15 9 MD Ira Glez David Wayne, MD Orthopedics 07/09/[address] [place] [address] Astrid Rios PA-C Physician [place] Physician [place] - 07/09/14 Surgical documented as of this encounter
--- OUTSIDE RECORDS SUMMARY | 2022-01-07 14:37 | XMS_ITS | Encounter Summary ---
:1980 Author Organization [place] Address Count includes the [facility]0 [facility] [place] [address] Care Team Providers Name Role Phone Bebeto Roth MD Unavailable Astrid Rios PA-C Unavailable Keri Elias MD Primary Care Provider Unavailable Reason for Visit Reason Comments Surgical Followup 7 wk pop DOS 10/14/17 extensio n of thoracic fusion Surgical Followup Encounter Details Date Type Department Care Team Description 12/13/2017 Office Visit [facility] Orthopaedic Bebeto Roth S/P spi nal fusion Clinic MD Devan (Primary Dx) [address] [place] [address] 4th [address] [place] [address] [phone] Social History Tobacco Use Types Packs/Day Years [...] Marjan Morataya - 12/13/2017 3:00 PM CDT [facility] Orthopedics Bebeto Roth MD 12/13/2017 Name: [...] denies problems with the incision. KYLEE: 24% Bcldci02: 29 Pain scale: 4 Physical Examination: Ht [...] MD: Keri Elias Ref. MD: Self Referred Dust Control Engineer? 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 Work [...] status documented in this encounter Care Teams Spoon Maker Relationship Specialty Start Date End Date Keri Elias PCP - General Family Practice 03/12/15 9 MD Ira Glez David Wayne, MD Orthopedics 07/09/14 [facility] [place] [address] Astrid Rios PA-C Physician Ironer Physician Ironer - 07/09/14 Surgical documented as of this encounter
--- OUTSIDE RECORDS SUMMARY | 2022-01-07 14:37 | XMS_ITS | Encounter Summary ---
:1980 Author Organization [place] Address [facility] [place] [address] Care Team Providers Name Role Phone Bebeto Roth MD Unavailable Astrid Rios PA-C Unavailable Keri Elias MD Primary Care Provider Unavailable Reason for Visit Diagnostic Imaging XR - Closed Specialty Diagnoses / Procedures Referred By Contact Refer red To Contact Diagnoses Scoliosis Bebeto Roth MD Procedures XR Spine Complete Scoliosis [address] [place], [place] [address] Referral ID Status Reason Start Date Expiration Date Visits Requ ested Visits Authorized [id number] Closed 04/17/2018 04/17/2019 1 1 Encounter Details Date Type Department Care Team Description 04/18/2018 Ancillary Procedure [facility] Chan Roth MD 9 [facility] SE [address] 1[address] [place] [phone] Social History Tobacco Use Types Packs/Day Years [...] Resu lts for this SCOLIOSIS 2 VIEWS MINE WEDGE SAWYER procedure are in the results section. documented in this encounter Results XR Spine Complete Scoliosis 2 Views (04/18/2018 9:23 AM MINE WEDGE SAWYER) Anatomical Region Laterality Modality Spine Computed Radiography Specimen (Source) Anatomical Location Collection Method / Collectio n Time Received Time / Laterality Volume Impressions 04/18/2018 3:19 PM MINE WEDGE SAWYER Impression: 1. Fusion hardware from T4 through L3 wi thout evidence of hardware complication. 2. Mild convex right curvature of the th oracolumbar/lumbar spine with apex at T12. 3. No substantial global coronal imbalan ce. 4. Normal sagittal vertical axis. MADALYN ZARAGOZA MD Narrative 04/18/2018 3:19 PM MINE WEDGE SAWYER Exam: XR SIX FOOT STANDING EXTREMITIES, XR [...] No substantial global coronal imbalance. Sagittal Vertical [place] (A vertical line drawn from the center [...] No substantial global coronal imbalance. Sagittal Vertical [place] (A vertical line drawn from the center [...] on filedocumented in this encounter Care Teams Assignment Clerk Relationship Specialty Start Date End Date Keri Elias PCP - General Family Practice 03/12/15 9 MD Ira Glez David Wayne, MD Orthopedics 07/09/[address] [place] [address] Astrid Rios PA-C Physician Branch Account Manager Physician Branch Account Manager - 07/09/14 Surgical documented as of this encounter
--- OUTSIDE RECORDS SUMMARY | 2022-01-07 14:37 | XMS_ITS | Encounter Summary ---
:1980 Author Organization [place] Address [address] [facility] [address] Care Team Providers Name Role Phone Bebeto [...] on filedocumented in this encounter Care Teams Wilderness Guide Relationship Specialty Start Date End Date Keri Elias PCP - General Family Practice 03/12/15 9 MD Ira Glez David Wayne, MD Orthopedics 07/09/[address] [place] [address] Astrid Rios PA-C Physician Entry Level Manager Physician Entry Level Manager - 07/09/14 Surgical documented as of this encounter
--- OUTSIDE RECORDS SUMMARY | 2022-01-07 14:37 | XMS_ITS | Encounter Summary ---
:1980 Author Organization [place] Address [address] [facility] [place] [address] Care Team Providers Name Role Phone Bebeto Roth MD Unavailable Astrid Rios PA-C Unavailable Keri Elias MD Primary Care Provider Unavailable Reason for Visit Diagnostic Imaging XR - Closed Specialty Diagnoses / Procedures Referred By Contact Refer red To Contact Diagnoses S/P spinal fusion Bebeto Roth MD Procedures XR Six Foot Standing Extremities [address] [place], [place] [address] Referral ID Status Reason Start Date Expiration Date Visits Requ ested Visits Authorized [id number] Closed 11/06/2017 11/06/2018 1 1 Encounter Details Date Type Department Care Team Description 12/13/2017 Radiant Appointment [facility] Imaging Bebeto Roth S/P spinal fusion Center Una Hartman MD 9 [facility] [address] [place] [id number] [phone] Social History Tobacco Use Types Packs/Day Years [...] No substantial global coronal imbalance. Sagittal Vertical Alicia (A vertical line drawn from the center [...] No substantial global coronal imbalance. Sagittal Vertical Alicia (A vertical line drawn from the center [...] status documented in this encounter Care Teams Correctional Food Service Supervisor Relationship Specialty Start Date End Date Keri Elias PCP - General Family Practice 03/12/15 9 MD Ira Glez David Wayne, MD Orthopedics 07/09/[address] [place] [address] Astrid Rios PA-C Physician Shellac Polisher Physician Shellac Polisher - 07/09/14 Surgical documented as of this encounter
--- OUTSIDE RECORDS SUMMARY | 2022-01-07 14:37 | XMS_ITS | Encounter Summary ---
:1980 Author Organization [place] Address [address] [facility] [place] [address] Care Team Providers Name Role Phone Bebeto Roth MD Unavailable Astrid Rios PA-C Unavailable Keri Elias MD Primary Care Provider Unavailable Reason for Referral Diagnostic Imaging XR - Closed Specialty Diagnoses / Procedures Referred By Contact Refer red To Contact Diagnoses S/P spinal fusion Bebeto Roth MD Procedures XR Six Foot Standing Extremities [address] [address] Referral ID Status Reason Start Date Expiration Date Visits Requ ested Visits Authorized [id number] Closed 11/06/2017 11/06/2018 1 1 Diagnostic Imaging XR - Closed Specialty Diagnoses / Procedures Referred By Contact Refer red To Contact Diagnoses S/P spinal fusion Bebeto Roth MD Procedures XR Spine Complete 2 Views [address] [place], [place] [address] Referral ID Status Reason Start Date Expiration Date Visits Requ ested Visits Authorized [id number] Closed 11/06/2017 11/06/2018 1 1 Encounter Details Date Type Department Care Team Description 11/06/2017 Orders Only [facility]edic Bebeto Roth S/P spi nal fusion Clinic MD Devan (Primary Dx) [address] [place] [address] [place] [address] [phone] Social History Tobacco Use Types Packs/Day Years [...] No substantial global coronal imbalance. Sagittal Vertical [place] (A vertical line drawn from the center [...] No substantial global coronal imbalance. Sagittal Vertical [place] (A vertical line drawn from the center [...] No substantial global coronal imbalance. Sagittal Vertical [place] (A vertical line drawn from the center of C7 (dragna line) to the posterosuperior aspe ct of [...] No substantial global coronal imbalance. Sagittal Vertical [place] (A vertical line drawn from the center [...] status documented in this encounter Care Teams Bisque Kiln Drawer Relationship Specialty Start Date End Date Keri Elias PCP - General Family Practice 03/12/15 9 MD Ira Glez, Bebeto Hartman MD Orthopedics 07/09/14 [facility] [address] Astrid Rios PA-C Physician Jet Worker Physician Jet Worker - 07/09/14 Surgical documented as of this encounter
--- OUTSIDE RECORDS SUMMARY | 2022-01-07 14:37 | XMS_ITS | Encounter Summary ---
:1980 Author Organization [place] Address [address] [facility] [place] [place] [address] Care Team Providers Name Role Phone Bebeto Roth MD Unavailable Astrid Rios PA-C Unavailable Keri Elias MD Primary Care Provider Unavailable Encounter Details Date Type Department Care Team Description 01/19/2018 Orders Only [facility] Keri Elias Acne vu lgaris (Primary Medicine Clinic MD [place] Dx) [address] [place] [address], [address] [place], [place] [address] Social History Tobacco Use Types [...] acne documented in this encounter Care Teams Ear Pull Machine Operator Relationship Specialty Start Date End Date Keri Elias PCP - General Family Practice 03/12/15 9 MD Ira Glez David Wayne, MD Orthopedics 07/09/[address] [place] [address] Astrid Rios PA-C Physician End Touching Machine Operator Physician End Touching Machine Operator - 07/09/14 Surgical documented as of this encounter
--- OUTSIDE RECORDS SUMMARY | 2022-01-07 14:37 | XMS_ITS | Encounter Summary ---
:1980 Author Organization [place] Address [facility] [place] [address] Care Team Providers Name Role Phone Myles De Oliveira MD Unavailable Astrid Rios PA-C Unavailable Keri Elias MD Primary Care Provider Unavailable Reason for Visit Auth/Cert Specialty Diagnoses / Procedures Referred By Contact Refer red To Contact Surgery Diagnoses Scoliosis Kyphosis Ur Periop Procedures PROCEDURE PLACEHOLDER ORTHO [address] [place] [address] Phone: Fax: Referral ID Status Reason Start Date Expiration Date Visits Requ ested Visits Authorized [id number] 1 1 Encounter Details Date Type Department Care Team Description 10/23/2017 - Hospital Encounter [facility] Myles Romero S/P spinal fusion 10/27/2017 [facility] [address] MD Devan (Primary Dx) [address] [place] [address] [place] [address] [address] [place], [place] [id number] Social History Tobacco Use Types Packs/Day Years [...] All [facility]. Pain is now controlled on [...] 12/13/2017 3:00 PM Myles De Oliveira MD [facility] 01/17/2018 7:45 AM Myles De Oliveira MD [facility] Orthopaedic Surgery appointments are at the [facility] [place] ([address] [place] [address]). Call [phone] to schedule a follow-up appointment at this [...] Details fluticasone (FLONASE) 50 MCG/ACT spray [place] 1-2 sprays into both nostrils daily, Disp-16 g, R-3, E-Prescribe pseudoePHEDrine (SUDAFED) 120 MG 12 hr tablet Take 120 mg by mouth every morning, Historical STOP taking these medications ibuprofen (ADVIL/MOTRIN) 600 MG tablet Comments: Reason for Stopping: Discharge Procedure Orders Reason for your hospital stay Order Comments: You were hospitalized after surgery for pain control and therapy. Adult [facility] Follow-up and recommended labs and tests Order Comments: You have an appointment with Dr. De Oliveira on 12/13/17. [facility] [place] ([address] [place] [address]). Call [phone] to schedule a follow-up appointment at this [...] [facility] 7 am to 7 pm [facility] [place] ([address] [place] [address]). -Pain control: Take medication as prescribed, but [...] help keep you hydrated. -CALL OUR CLINIC ([phone] during regular office hours, or [phone] for the on-call residentMD for questions - [...] Date End Date fluticasone (FLONASE) 50 [place] 1-2 sprays 16 g 3 07/05 MCG/ACT [...] prior to contacting the Orthopaedic Surgery resident litigation claim representative. Thank you! T Sunni Hernandez MD - 10/26/2017 1:21 PM CDT Urinary retention No BM yet Ambulating with PT Last night nursing notes reviewed No cp No sob No fever No chills No vomiting No loss of consciousness Vital signs: Temp: 99.1 ??F (37.3 ??C) Temp src: Oral BP: 97/50 Pulse: 114 Heart Rate: 103 Resp: 16 SpO2: 98 % A1Faffda: None (Room air) Oxygen Delivery: 6 LPM [...] Rivera RN - 10/26/2017 10:58 AM CDT Kosher Dietary Service Manager Progress Note Admission Date/Time: 10/23/2017 Attending MD: [...] Anticipated Discharge Plan: home Angelica PADILLA RN [facility] RN Kosher Dietary Service Manager 10A E-mail: [email or web address] Pager: [phone] To contact weekend RNCC, dial * [phone] and enter pager number [phone] at prompt. This pager can not be [...] prior to contacting the Orthopaedic Surgery resident litigation claim representative. Thank you! Sunni Hernandez MD - 10/25/2017 [...] Mobility Skill: Sit to Supine Level of [place]: Sit/Supine stand-by assist Bed Mobility Skill: Supine to Sit Level of [place]: Supine/Sit stand-by assist Transfer Skill: Bed to Chair/Chair to Bed Level of [place]: Bed to Chair stand-by assist Assistive Device - Transfer Skill Bed to Chair Chair to Bed Rehab Eval standard walker Transfer Skill: Sit to Stand Level of [place]: Sit/Stand stand-by assist Assistive Device for Transfer: Sit/Stand standard walker Transfer Skill: Toilet Transfer Level of [place]: Toilet stand-by assist Upper Body Dressing Level of [place]: Dress Upper Body independent Lower Body Dressing Level of [place]: Dress Lower Body stand-by assist Toileting Level of [place]: Toilet stand-by assist Grooming Level of [place]: Grooming independent Eating/Self Feeding Level of [place]: Eating independent Activities of Daily Living Analysis Impairments Contributing to Impaired Activities of Daily Living pain;post surgical precautions;ROM decreased Clinical Impression Criteria for Skilled Therapeutic Interventions Met evaluation only Risks and Benefits of Treatment have been explained. Yes Patient, Family & other staff in agreement with plan of care Yes [facility] AM-PAC TM 6 Clicks ?? 2016, Trustees of [facility], under license to [employer] All rights reserved. 6 Clicks Short Forms Daily Activity Inpatient Short Form [facility] AM-PAC??? 6 Clicks Daily Activity Inpatient [...] prior to contacting the Orthopaedic Surgery resident litigation claim representative. Thank you! Sunni Otoole MD - 10/24/2017 [...] Pericolace . Add miralax Discuss with ortho SHOT CORE DRILL OPERATOR and care team rounds Tala Roche Pt, PT - 10/24/2017 10:19 AM CDT 10/24/17 1004 Quick Adds Type of Visit Initial PT Evaluation Talent Partner Talent Partner Present no Language Georgian Living Environment Lives With child(gabino), dependent;significant other [...] in agreement with plan of care Yes [facility] AM-PAC TM 6 Clicks ?? 2016, Trustees of [facility], under license to [employer] All rights reserved. 6 Clicks Short Forms Basic Mobility Inpatient Short Form [facility] AM-PAC??? 6 Clicks V.2 Basic Mobility [...] prior to contacting the Orthopaedic Surgery resident litigation claim representative. Thank you! documented in this encounter Consult Notes Michael Hilario MD - 10/23/2017 3:54 PM CDTAssociated Order(s): INTERNAL MEDICINE ADULT IP CONSULT FOR [facility] INTERNAL MEDICINE CONSULTATION REQUESTING PHYSICIAN: Myles De Oliveira MD REASON FOR CONSULTATION: For recommendations for medical comorbidities. Assessment Jocelin Garg is a 37 year old female admitted on 10/23/2017 for spinal Sx 1) Extension Of Fusion Thoracic 4-Thoracic 10, Rivera Khan Osteotomies Thoracic 6-10 post op D# 0 Hemodynamics: stable - continue on IV fluids, until adequate PO. Analgesia: adequate , on STUD DRIVER Antiemetics: as per protocol. If does not [...] with any questions. Michael Hilario MD (Pager- [phone]) Internal Medicine/ Hospitalist CHIEF COMPLAINT: 37 year [...] Encounter: fluticasone (FLONASE) 50 MCG/ACT spray [place] 1-2 sprays into both nostrils daily (Patient taking differently: [place] 1-2 sprays into both nostrils as needed [...] a 37 year old female who speaks Georgian. Procedure Procedure(s): Extension Of Fusion Thoracic 4-Thoracic [...] mg (total dose) last given at 1245 STUD DRIVER / epidural Yes. STUD DRIVER - hydromorphone (Dilaudid) Capnography Yes Telemetry ECG Rhythm: Normal sinus rhythm Inpatient Assembler Engine Ordered? No Labs Glucose Lab Results Component Value Date GLC 90 09/29/2017 Hgb Lab Results Component Value Date HGB 12.5 09/29/2017 INR Lab Results Component Value Date INR 1.02 09/29/2017 PACU Imaging Not applicable Wound/Incision Incision/Surgical Site 10/23/17 Back (Active) Incision Assessment [facility] 10/23/2017 11:18 AM Closure Approximated;Liquid bandage [...] 10/23/17 Left Lower forearm (Active) Site Assessment [facility] 10/23/2017 12:07 PM Line Status Saline locked 10/23/2017 12:07 PM Phlebitis Scale 0-->no symptoms 10/23/2017 12:07 PM Infiltration Scale 0 10/23/2017 12:07 PM Infiltration Site Treatment Method None 10/23/2017 6:48 AM Extravasation? No 10/23/2017 6:48 AM Number of days:0 Peripheral IV 10/23/17 Right Lower forearm (Active) Site Assessment [facility] 10/23/2017 12:07 PM Line Status Infusing 10/23/2017 12:07 PM Phlebitis Scale 0-->no symptoms 10/23/2017 12:07 PM Infiltration Scale 0 10/23/2017 12:07 PM Number of days:0 Blood Products Not applicable EBL 310 mL Intake/Output Date 10/23/17 0700 - 10/24/17 0659 Shift 4286-9626 6065-8866 3387-0673 24 Hour Total I N T A K E I.V. 1450 1450 Shift Total (mL/kg) 1450 (21.05) 1450 (21.05) O U T P U T Urine 100 100 Blood 310 310 Shift Total (mL/kg) 410 (5.95) 410 (5.95) Weight (kg) 68.9 68.9 68.9 68.9 Drains / Florez Closed/Suction Drain Back Accordion 10 Hebrew (Active) Site Description [facility] [...] needing completion None René Esposito, RN ASCOM [id number] documented in this encounter Miscellaneous Notes Plan [...] goal(s). See goals on Care Plan in [facility] electronic health record for goal details. Goals met Therapy recommendation(s): Continue home exercise program. Plan of Care - Jocelin Mayes, PT - 10/26/2017 10:32 AM CDT Problem: Patient Care Overview Goal: Plan of Care/Patient Progress Review Recreation Center Director PT Patient plan for discharge: Home Current [...] Overview Goal: Plan of Care/Patient Progress Review Recreation Center Director PT Patient plan for discharge: Home with [...] Additional Info: Pt very anxious throughout shift, automotive service writer listened to pt's concerns and [...] had oxycodone dose increased to 10-15mg. Dilaudid STUD DRIVER discontinued this am.Offered ice packs but pt [...] Overview Goal: Plan of Care/Patient Progress Review Recreation Center Director PT Patient plan for discharge: Home with [...] Care/Patient Progress Review A/O x 4. Increased STUD DRIVER from 0.2 to 0.3 due to inadequate [...] 1 Skin: Intact Pain: Moderate. Manageable w/ STUD DRIVER pump. Neuro/CMS: Intact, no numbness or tingling reported Dressing(s): Posterior back CDI Diet: Clear liquids, tolerating well. Equipment: CAPNO STUD DRIVER pump IV's/Drains: PIV R hand infusing NS 100mL/hr and STUD DRIVER pump Hemovac - 0ccs Florez - patent Plan: Continue to monitor Additional Info: Discontinue STUD DRIVER pump POD #1 Discontinue florez POD #1 [...] of surgical incisions and hemovac replacement Pain: STUD DRIVER dilaudid on and verified. Pt has discomfort in lower back. And bladder Neuro/CMS: Intact denies numbness and tingling. Prior to surgery pt had intermittently tingling in BL feet. Dressing(s): CDI Aquacel posterior from neck down to Buttocks. hemovac in place CDI. Diet: C.liq. Nausea Zofran given LDA: PIV left hand running LR and Dilaudid STUD DRIVER. R hand piv SL. Hemovac in place and patent. Aquacel. Florez catheter. Equipment: IV pole, PCDs, STUD DRIVER pump. CAPNO Plan: TBT Additional Info: Pt [...] Myles De Oliveira MD N/A None available Jumpbasting Facing Baster(s): Huong Stock PA-C Anesthesia: General Estimated blood [...] to PACU Plan: Pain: Scheduled Tylenol, Dilaudid STUD DRIVER, oxycodone PRN, Valium PRN Activity: Weight bearing [...] in 5-7 days. Huong Stock PA-C Pager: [phone] If no answer or after 4pm, please page the litigation claim representative ortho resident. Op Note - Myles De [...] surgery SURGEON: Myles De Oliveira Jr., MD SPECIAL DELIVERY MESSENGER: Huong Stock PA-C. No qualified resident was [...] then turned in position prone on a zappits 4-strategic procurement manager frame. She was prepared and draped in [...] the O- arm and transferred to the [employer] image-guided workstation. This was now used to place pedicle screws in a navigated fashion. All the screws were from the [employer] System. These were titanium screws with [...] MD MT: CC Name: JOCELIN PINEDO Account: [id number] : 1980 Procedure Date: 10/23/2017 Document: [id number] cc: Copy for Patient Keri Beaulieu MD [...] spine. Positive global coronal imbalance. Sagittal Vertical [place] (A vertical line drawn from the center [...] spine. Positive global coronal imbalance. Sagittal Vertical [place] (A vertical line drawn from the center [...] Value Ref Test Analysis Performed At [facility] Method Time Signature Color Urine Light Yellow 10/26/2017 [facility] 3:08 PM T [facility] Appearance Urine Clear 10/26/2017 [facility] F 3:08 PM T [facility] Glucose Urine Negative NEG^Nega 10/26/2017 [facility] tive 3:08 PM T [facility] mg/dL [facility] Bilirubin Urine Negative NEG^Nega 10/26/2017 [facility] tive 3:08 PM T [facility] Ketones Urine 10 (A) NEG^Nega 10/26/2017 [facility] tive 3:08 PM T [facility] mg/dL [facility] Specific [place] 1.005 1.003 - 10/26/2017 [place] O F Urine 1.035 3:08 PM [facility] Blood Urine Moderate (A) NEG^Nega 10/26/2017 [facility] tive 3:08 PM T [facility] pH Urine 6.5 5.0 - 10/26/2017 [facility] 7.0 pH 3:08 PM [facility] Protein Albumin Negative NEG^Nega 10/26/2017 [facility] Urine tive 3:08 PM [facility] mg/dL [facility] Urobilinogen Normal 0.0 - 10/26/2017 [facility] mg/dL 2.0 3:08 PM [facility] mg/dL [facility] Nitrite Urine Negative NEG^Nega 10/26/2017 [facility] tive 3:08 PM T [facility] Leukocyte Negative NEG^Nega 10/26/2017 [facility] Esterase Urine tive 3:08 PM T [facility] Source Unspecified 10/26/2017 [facility] Urine 2:54 PM [facility] WBC Urine 1 0 - 5 10/26/2017 [facility] /HPF 3:08 PM [facility] RBC Urine 1 0 - 2 10/26/2017 [facility] /HPF 3:08 PM [facility] Squamous <1 0 - 1 10/26/2017 [facility] Epithelial /HPF /HPF 3:08 PM [facility] Specimen (Source) Anatomical Collection Method Collection Time Re ceived Time Location / / Volume Laterality Unspecified Urine URINE SPECIMEN 10/26/2017 2:40 10/26 2:54 OBTAINED BY CLEAN PM CDT PM CDT CATCH PROCEDURE / Unknown Sunni Hernandez MD LAB - URINE ORDERABLES Performing Organization Address City/[facility]/ZIP Code Phon e Number [address] [address] [facility] (ABNORMAL) CBC with platelets (10/26/2017 8:00 AM CDT) [facility] gist Method Time Signature WBC 6.1 4.0 - 11.0 10/26/2017 [facility] 10e9/L 8:24 AM CDT [facility] RBC Count 3.88 3.8 - 5.2 10/26/2017 [facility] 10e12/L 8:24 AM CDT [facility] Hemoglobin 9.9 (L) 11.7 - 10/26/2017 [facility] 15.7 g/dL 8:24 AM CDT [facility] Hematocrit 30.5 (L) 35.0 - 10/26/2017 [facility] 47.0 % 8:24 AM CDT [facility] MCV 79 78 - 100 10/26/2017 [facility] fl 8:24 AM CDT [facility] MCH 25.5 (L) 26.5 - 10/26/2017 [facility] 33.0 pg 8:24 AM CDT [facility] MCHC 32.5 31.5 - 10/26/2017 [facility] 36.5 g/dL 8:24 AM CDT [facility] RDW 13.3 10.0 - 10/26/2017 [facility] 15.0 % 8:24 AM CDT [facility] Platelet Count 244 150 - 450 10/26/2017 [facility] 10e9/L 8:24 AM CDT [facility] Specimen Anatomical Collection Method Collection Time Receive d Time (Source) Location / / Volume Laterality Blood specimen 10/26/2017 8:00 AM 018 8:01 (specimen) CDT AM CDT Huong Stock PA-C LAB - BLOOD ORDERABLES Performing Organization Address City/State/ZIP Code Phon e Number [address] [place] [address] [facility] (ABNORMAL) Glucose by meter (10/25/2017 8:34 AM CDT) P athologist Signature Glucose 114 (H) 70 - 99 10/25/2017 POINT OF CARE mg/dL 8:46 AM CDT TEST, GLUCOSE Specimen Anatomical Collection Method Collection Time Receive d Time (Source) Location / / Volume Laterality 10/25/2017 8:34 AM 8 8:46 CDT AM CDT Myles De Oliveira MD [facility] PO[facility] Performing Organization Address City/State/ZIP Code Phon e Number FV POINT OF CARE TEST, GLUCOSE POINT OF CARE TEST, GLUCOSE (ABNORMAL) CBC with platelets (10/25/2017 6:26 AM CDT) Patholo gist Method Time Signature WBC 9.9 4.0 - 11.0 10/25/2017 [facility] 10e9/L 6:34 AM CDT [facility] RBC Count 4.03 3.8 - 5.2 10/25/2017 [facility] 10e12/L 6:34 AM CDT [facility] Hemoglobin 10.2 (L) 11.7 - 10/25/2017 [facility] 15.7 g/dL 6:34 AM CDT [facility] Hematocrit 32.0 (L) 35.0 - 10/25/2017 [facility] 47.0 % 6:34 AM CDT [facility] MCV 79 78 - 100 10/25/2017 [facility] fl 6:34 AM CDT [facility] MCH 25.3 (L) 26.5 - 10/25/2017 [facility] 33.0 pg 6:34 AM CDT [facility] MCHC 31.9 31.5 - 10/25/2017 [facility] 36.5 g/dL 6:34 AM CDT [facility] RDW 13.5 10.0 - 10/25/2017 [facility] 15.0 % 6:34 AM CDT [facility] Platelet Count 248 150 - 450 10/25/2017 [facility] 10e9/L 6:34 AM CDT [facility] Specimen Anatomical Collection Method Collection Time Receive d Time (Source) Location / / Volume Laterality Blood specimen 10/25/2017 6:26 AM 018 6:28 (specimen) CDT AM CDT Huong Stock PA-C LAB - BLOOD ORDERABLES Performing Organization Address City/[facility]/ZIP Code Phon e Number [address] [address] [facility] (ABNORMAL) CBC with platelets (10/24/2017 7:05 AM CDT) [facility] gist Method Time Signature WBC 8.8 4.0 - 11.0 10/24/2017 [facility] 10e9/L 7:17 AM CDT [facility] RBC Count 4.04 3.8 - 5.2 10/24/2017 [facility] 10e12/L 7:17 AM CDT [facility] Hemoglobin 10.2 (L) 11.7 - 10/24/2017 [facility] 15.7 g/dL 7:17 AM CDT [facility] Hematocrit 32.2 (L) 35.0 - 10/24/2017 [facility] 47.0 % 7:17 AM CDT [facility] MCV 80 78 - 100 10/24/2017 [facility] fl 7:17 AM CDT [facility] MCH 25.2 (L) 26.5 - 10/24/2017 [facility] 33.0 pg 7:17 AM CDT [facility] MCHC 31.7 31.5 - 10/24/2017 [facility] 36.5 g/dL 7:17 AM CDT [facility] RDW 13.3 10.0 - 10/24/2017 [facility] 15.0 % 7:17 AM CDT [facility] Platelet Count 235 150 - 450 10/24/2017 [facility] 10e9/L 7:17 AM CDT [facility] Specimen Anatomical Collection Method Collection Time Receive d Time (Source) Location / / Volume Laterality Blood specimen 10/24/2017 7:05 AM 018 7:06 (specimen) CDT AM CDT Huong Stock PA-C LAB - BLOOD ORDERABLES Performing Organization Address City/State/ZIP Code Phon e Number [address] [address] [facility] (ABNORMAL) Basic metabolic panel (10/24/2017 7:05 AM CDT) Analysis Performed At Patho logist Time Signature Sodium 144 133 - 144 10/24/2017 [facility] mmol/L 7:33 AM T [facility] Potassium 3.6 3.4 - 5.3 10/24/2017 [facility] mmol/L 7:33 AM CDT [facility] Chloride 110 (H) 94 - 109 10/24/2017 [facility] mmol/L 7:33 AM T [facility] Carbon Dioxide 27 20 - 32 10/24/2017 [facility] mmol/L 7:33 AM CDT [facility] Anion Gap 7 3 - 14 10/24/2017 [facility] mmol/L 7:33 AM T [facility] Glucose 99 70 - 99 10/24/2017 [place] mg/dL 7:33 AM T [facility] Urea Nitrogen 6 (L) 7 - 30 10/24/2017 [facility] mg/dL 7:33 AM T [facility] Creatinine 0.74 0.52 - 10/24/2017 [facility] 1.04 mg/dL 7:33 AM T [facility] GFR Estimate 89 >60 10/24/2017 [facility] mL/min/1.7 7:33 AM T [address] Comment: Non GFR Calc GFR Estimate If >90 >60 mL/min/1.7m2 10/24/2017 7:33 A M [facility] Black [facility] Comment: GFR Calc Calcium 7.6 (L) 8.5 - 10.1 mg/dL 10/24/2017 7:33 AM T [facility] Specimen Anatomical Collection Method Collection Time Receive d Time (Source) Location / / Volume Laterality Blood specimen 10/24/2017 7:05 AM 018 7:06 (specimen) CDT AM CDT Huong Stock PA-C LAB - BLOOD ORDERABLES Performing Organization Address City/State/ZIP Code Phon e Number [facility] [address] [place] [address] [facility] (ABNORMAL) Glucose by meter (10/24/2017 2:17 AM CDT) P athologist Signature Glucose 110 (H) 70 - 99 10/24/2017 POINT OF CARE mg/dL 2:31 AM CDT TEST, GLUCOSE Specimen Anatomical Collection Method Collection Time Receive d Time (Source) Location / / Volume Laterality 10/24/2017 2:17 AM 8 2:31 CDT AM CDT Myles HILLIARD POCT Performing Organization Address [facility]/ZIP Code Phon e Number [facility] POINT OF [...] be read by a radiologist or a [place] non-radiologis t provider. Myles De Oliveira MD IMG DIAGNOSTIC IMAGING ORDER TAYLRO Performing Organization Address [facility] Code Phon e Number [facility] Glucose by meter (10/23/2017 5:57 AM CDT) P athologist Signature Glucose 94 70 - 99 10/23/2017 POINT OF CARE mg/dL 6:09 AM CDT TEST, GLUCOSE Comment: Dr/RN Notified Specimen Anatomical Collection Method Collection Time Receive d Time (Source) Location / / Volume Laterality 10/23/2017 5:57 AM 8 6:09 CDT AM CDT Myles HILLIARD POCT Performing Organization Address City/[facility] Phon e Number [facility] POINT OF CARE TEST, GLUCOSE POINT OF CARE TEST, GLUCOSE HCG qualitative urine (10/23/2017 5:50 AM CDT) Analysis Performed At Patho logist Time Signature HCG Qual Urine Negative NEG^Negati 10/23/2017 [facility] 6:22 AM CDT [facility] Comment: This test is for screening purposes. ??R esults should be interpreted along with the clinical picture. ??Confirmation te sting is available if warranted by ordering [id number], HCG Quantitative Pregna ncy. Specimen Anatomical Collection Method Collection Time Receive d Time (Source) Location / / Volume Laterality Urine specimen URINE SPECIMEN / 10/23/2017 5:50 AM 11/2017 6:06 (specimen) Unknown CDT AM CDT Sarah Parry MD LAB - URINE ORDERABLES Performing Organization Address City/State/ZIP Code Phon e Number [facility] [address] [place] [address] [facility] EMG - HIM SCAN (10/23/2017 12:00 AM [...] used when administering multiple Central Nervous System (STUMMEL SELECTOR) depressing meds within a short time frame., Post-procedure Given 10/24/2017 6:06 AM CDT 25 mg diphenhydrAMINE (BENADRYL) injection 25 mg 25 mg, Intravenous, EVERY 6 HOURS PRN, i tching, Only give if patient unable to take PO., Starting on Mon10/23/17 at 1417, Caution to be us ed when administering multiple Central Nervous System (STUMMEL SELECTOR) de pressing meds within a short time [...] medication dose, if any., Pre-procedure HYDROmorphone (DILAUDID) STUD DRIVER 1 mg/mL OPIOID Shift Total 10/14 10:35 PM CDT NAIVE Nurse Loading Dose: 0.2 mg, STUD DRIVER Dose: 0.2 mg, Lockout Interval: 10 Minutes, Continuous Rate: 0 mg/hr, One Hour Dose Limit: 1.8 mg, Starting on Mon10/23/17 at 1200, Start with the provider specified dose. STUD DRIVER dose range is 0.2 mg - 0.3 mg. May increase dose by 0.1 mg for pain control or improvement in physical function. Hold the dose for analgesic side effects. Notify the provider to assess for uncontrolled pain or analgesic side effects.Do NOT give any additional opioids while on STUD DRIVER. When transitioning from STUD DRIVER to oral opioid MAY give first oral dose 30 minutes PRIOR to discontinuation of STUD DRIVER., Intravenous, Post-procedure Rate/Dose Verify 10/23/2017 2:45 PM CDT New Syringe/Cartridge 10/23/2017 12:41 PM CDT HYDROmorphone (DILAUDID) STUD DRIVER 1 New Syringe/Cartridge 10/24/2017 9:54 AM CDT mg/mL OPIOID NAIVE Nurse Loading Dose: 0.2 mg, STUD DRIVER Dose: 0.3 mg, Lockout Interval: 10 Minutes, Continuous Rate: 0 mg/hr, One Hour Dose Limit: 1.8 mg, Starting on Mon10/24/17 at 0130, Start with the provider specified dose. STUD DRIVER dose range is 0.2 mg - 0.3 mg. May increase dose by 0.1 mg for pain control or improvement in physical function. Hold the dose for analgesic side effects. Notify the provider to assess for uncontrolled pain or analgesic side effects.Do NOT give any additional opioids while on STUD DRIVER. When transitioning from STUD DRIVER to oral opioid MAY give first oral dose 30 minutes PRIOR to discontinuation of STUD DRIVER., Intravenous, Post-procedure Shift Total 10/24/2017 6:01 AM [...] or analgesic side effects. Hold while on STUD DRIVER or with regular IV opioid dosing. Maximum [...] or analgesic side effects. Hold while on STUD DRIVER or with regular IV opioid dosing. Maximum [...] 10/27/2017 acetaminophen (TYLENOL) tablet 975 mg () 1744 ( Given - Provider: Rhonda Sheppard RN)5104 (Given - Provider: Patricia Gonsalez RN)5321 (Given - Provider: Emma Morales RN) 0707 [...] Patricia Gonsalez RN) 0818 (Given - Provider: aBrbara Killian RN) 12 mg, Subcutaneous, EVERY OTHER [...] Reason: Med discontinued by Provider - Comment: corporate communications specialist d/c'd)1148 (Given - Provider: Patricia Gonsalez, RN)2157 [...] used when administering multiple Central Nervous System (STUMMEL SELECTOR) depressing meds within a short time frame., Post-procedure diphenhydrAMINE (BENADRYL) injection 25 mg(Linked Grou p 2) 0327 (See Alternative - Provider: Rhonda Sheppard RN) 25 mg, Intravenous, EVERY 6 HOURS PRN, i tching, Only give if patient unable to take PO., Starting 10/23/17 at 1417, Caution to be used when administering multiple Central Nervous System (STUMMEL SELECTOR) depress ing meds within a short time [...] 500 mg 0454 (Given - Pr ovider: Rhnoda Sheppard RN)1352 (Given - Provider: Patricia Gonsalez RN) 0116 (Given - Provider: Rhonda Sheppard RN)0930 (Given - Provider: Huong Adams, KENNY)2359 (Given - Provider: Rhonda Sheppard, KENNY) 0648 (Given - Provider: Juanis Tejeda) 500 mg, Oral, EVERY 6 HOURS PRN, muscle spasms, Starting Tue 10/14 03/02 at 1507 metoclopramide (REGLAN) injection 10 mg(Linked Group 3) 8555 (Given - Provider: Emma Morales RN) 10 [...] metoclopramide (REGLAN) tablet 10 mg(Linked Group 3) 6105 (See Alternative - Provider: Emma Morales RN) [...] Morales RN) 0211 (Given - Provider: Rhonda hSeppard RN)0521 (Given - Provider: Rhonda Sheppard RN)0908 [...] or analgesic side effects. Hold while on STUD DRIVER or with regular IV opioid dosing. Maximum [...] 2 TIMES DAILY, First dos e on Sehna 10/26/17 at 2000
If no bowel movement [...] used when administering multiple Central Nervous System (STUMMEL SELECTOR) depressing meds within a short time frame.
Post-procedure Or diphenhydrAMINE (BENADRYL) injection 25 mgJump to med 25 mg, Intravenous, EVERY 6 HOURS PRN, i tching, Only give if patient unable to take PO., Starting 10/23/17 at 1417
Caution to be used when administering multiple Central Nervous System (STUMMEL SELECTOR) depressing meds within a short time fra [...]
Post-procedure documented in this encounter Care Teams Benzol Still Operator Relationship Specialty Start Date End Date Keri Elias PCP - General Family Practice 03/12/15 9 MD Ira Glez David Wayne, MD Orthopedics 07/09/14 [facility] [place] [address] Astrid Rios PA-C Physician Jumpbasting Facing Baster Physician Jumpbasting Facing Baster - 07/09/14 Surgical documented as of this encounter
--- OUTSIDE RECORDS SUMMARY | 2022-01-07 14:38 | XMS_ITS | Encounter Summary ---
:1980 Author Organization [place] Address [address] [facility] [place] [address] Care Team Providers Name Role Phone Bebeto Roth MD Unavailable Astrid Rios PA-C Unavailable Keri Elias MD Primary Care Provider Unavailable Encounter Details Date Type Department Care Team Description 09/29/2017 Orders Only [facility] Preop general physical [address] [facility] SE exam 1st Floor [place], [place] [phone] Social History Tobacco Use [...] 12:03 Preop general Resu lts for this [facility] physical exam procedure are in the results section. documented in this encounter Results (ABNORMAL) UA reflex to Microscopic and Culture (09/29/2017 12:11 PM [facility]) [facility] Method Time Signature Color Urine Yellow 09/29/[address] [facility] 12:[address] [facility] Appearance Urine Clear 09/29/[address] [facility] 12:[address] [facility] Glucose Urine Negative NEG^Negat 09/29/2017 [facility] [place] mg/dL 12:[address] [facility] Bilirubin Urine Negative NEG^Negat 09/29/2017 [facility] [place] 12:[address] [facility] Ketones Urine Negative NEG^Negat 09/29/2017 [facility] [place] mg/dL 12:[address] [facility] Specific [place] 1.013 1.003 - 09/29/2017 [facility] Urine 1.035 12:[address] [facility] Blood Urine Large (A) NEG^Negat 09/29/2017 [facility] [place] 12:[address] [facility] pH Urine 6.0 5.0 - 7.0 09/29/2017 [facility] pH 12:41 [facility] Protein Albumin Negative NEG^Negat 09/29/2017 [facility] Urine [place]anco mg/dL 12:[address] [facility] Urobilinogen 0.0 0.0 - 2.0 09/29/2017 [facility] mg/dL mg/dL 12:[address] [facility] Nitrite Urine Negative NEG^Negat 09/29/2017 [facility] [place] 12:[address] [facility] Leukocyte Negative NEG^Negat 09/29/2017 [facility] Esterase Urine franco 12:41 [facility] Source Midstream 09/29/2017 [facility] Urine 12:[address] [facility] RBC Urine 3 (H) 0 - 2 09/29/2017 [facility] /HPF 12:[address] [facility] WBC Urine 1 0 - 5 09/29/2017 [facility] /HPF 12:[address] [facility] Squamous 3 (H) 0 - 1 09/29/2017 [facility] Epithelial /HPF /HPF 12:41 PM [place] Urine [facility] Transitional Epi <1 (A) FEW^Few 09/29/2017 [facility] F /HPF 12:[address] [facility] Mucous Urine Present (A) NEG^Negat 09/29/2017 [facility] [place] /LPF 12:[address] [facility] Specimen (Source) Anatomical Collection Method Collection Time Re ceived Time Location / / Volume Laterality Examination of 09/29/2017 12:11 8 midstream urine PM CDT 12:16 PM CDT specimen (procedure) Cameron Manjarrez APRN POWDER GUARD LAB - URINE ORDERABLES Performing Organization Address City/[place] [facility]/ZIP Code Phon e Number [address] [address] [facility] Hemoglobin A1c (09/29/2017 12:03 PM CDT) P athologist Signature Hemoglobin A1C 5.3 0 - 5.6 % 09/29/2017 [facility] 12:48 PM CDT [facility] Comment: Normal <5.7% Prediabetes 5.7-6.4% ??Diab etes 6.5% or higher - adopted from ADA consensus guidelines. Specimen Anatomical Collection Method Collection Time Receive d Time (Source) Location / / Volume Laterality Blood specimen 09/29/2017 12:03 8 (specimen) PM CDT 12:04 PM CDT Cameron Manjarrez APRN POWDER GUARD LAB - BLOOD ORDERABLES Performing Organization Address City/State/ZIP Code Phon e Number [address] [address] [facility] INR (09/29/2017 12:03 PM CDT) P athologist Signature INR 1.02 0.86 - 1.14 09/29/2017 [facility] 12:28 PM CDT [facility] Specimen Anatomical Collection Method Collection Time Receive d Time (Source) Location / / Volume Laterality Blood specimen 09/29/2017 12:03 8 (specimen) PM CDT 12:04 PM CDT Cameron Manjarrez APRN POWDER GUARD LAB - BLOOD ORDERABLES Performing Organization Address City/[facility]/ZIP Code Phon e Number [address] [address] [facility] (ABNORMAL) CBC with platelets (09/29/2017 12:03 PM CDT) [facility] gist Method Time Signature WBC 4.8 4.0 - 11.0 09/29/2017 [facility] 10e9/L 12:18 PM CDT [facility] RBC Count 4.87 3.8 - 5.2 09/29/2017 [facility] 10e12/L 12:18 PM CDT [facility] Hemoglobin 12.5 11.7 - 09/29/2017 [facility] 15.7 g/dL 12:18 PM CDT [facility] Hematocrit 39.4 35.0 - 09/29/2017 [facility] 47.0 % 12:18 PM CDT [facility] MCV 81 78 - 100 09/29/2017 [facility] fl 12:18 PM CDT [facility] MCH 25.7 (L) 26.5 - 09/29/2017 [facility] 33.0 pg 12:18 PM CDT [facility] MCHC 31.7 31.5 - 09/29/2017 [facility] 36.5 g/dL 12:18 PM CDT [facility] RDW 13.8 10.0 - 09/29/2017 [facility] 15.0 % 12:18 PM CDT [facility] Platelet Count 332 150 - 450 09/29/2017 [facility] 10e9/L 12:18 PM CDT [facility] Specimen Anatomical Collection Method Collection Time Receive d Time (Source) Location / / Volume Laterality Blood specimen 09/29/2017 12:03 8 (specimen) PM CDT 12:04 PM CDT Cameron Manjarrez APRN POWDER GUARD LAB - BLOOD ORDERABLES Performing Organization Address City/[facility] Code Phon e Number [address] [address] [facility] Basic metabolic panel (09/29/2017 12:03 PM CDT) P athologist Signature Sodium 141 133 - 144 09/29/2017 [facility] mmol/L 12:40 PM CDT [facility] Potassium 3.6 3.4 - 5.3 09/29/2017 [facility] mmol/L 12:40 PM CDT [facility] Chloride 106 94 - 109 09/29/2017 [facility] mmol/L 12:40 PM CDT [facility] Carbon Dioxide 28 20 - 32 09/29/2017 [facility] mmol/L 12:40 PM CDT [facility] Anion Gap 7 3 - 14 09/29/2017 [facility] mmol/L 12:40 PM CDT [facility] Glucose 90 70 - 99 09/29/2017 [facility] mg/dL 12:40 PM CDT [facility] Urea Nitrogen 12 7 - 30 09/29/2017 [facility] mg/dL 12:40 PM CDT [facility] Creatinine 0.85 0.52 - 09/29/2017 [facility] 1.04 mg/dL 12:40 PM CDT [facility] GFR Estimate 76 >60 09/29/2017 [facility] mL/min/1.7 12:[address] Comment: Non GFR Calc GFR Estimate If >90 >60 mL/min/1.7m2 09/29/2017 12:40 PM [facility] Black T [facility] Comment: GFR Calc Calcium 8.8 8.5 - 10.1 mg/dL 09/29/2017 12:40 PM CDT [facility] Specimen Anatomical Collection Method Collection Time Receive d Time (Source) Location / / Volume Laterality Blood specimen 09/29/2017 12:03 8 (specimen) PM CDT 12:04 PM CDT Cameron Manjarrez APRN POWDER GUARD LAB - BLOOD ORDERABLES Performing Organization Address City/State/ZIP Code Phon e Number [place] [phone] [facility] ABO/Rh type and screen (09/29/2017 12:03 PM CDT) Patholo gist Method Time Signature ABO O 09/29/2017 [facility] 1:31 PM CDT [facility] RH(D) Pos [facility] Antibody Neg 09/29/2017 [facility] Screen 1:31 PM CDT [facility] Test Valid [facility] 09/29/2017 [facility] 12:46 PM CDT [facility] Specimen 10/26/2017 10/23/2017 [facility] Expires 6:57 AM CDT [facility] Blood Bank Pre admission 09/29/2017 [facility] Comment form received 4:03 PM CDT [facility] 09/29/17 for [facility] 10/23/17. AA Specimen Anatomical Collection Method Collection Time Receive d Time (Source) Location / / Volume Laterality Blood specimen 09/29/2017 12:03 8 (specimen) PM CDT 12:04 PM CDT Cameron Manjarrez APRN POWDER GUARD LAB - BLOOD BANK TEST ORDER Performing Organization Address City/State/ZIP Code Phon e Number [facility] [address] [place] [address] [facility] [address] [place] [address] [facility] documented in this encounter Visit Diagnoses Diagnosis Preop general physical exam Other specified pre-operative examinatio n documented in this encounter Care Teams Business Practices Officer Relationship Specialty Start Date End Date Keri Elias PCP - General Family Practice 03/12/15 9 MD Ira Glez David Wayne, MD Orthopedics 07/09/[address] [place] [address] Astrid Rios PA-C Physician Library Consultant Physician Library Consultant - 07/09/14 Surgical documented as of this encounter
--- OUTSIDE RECORDS SUMMARY | 2022-01-07 14:38 | XMS_ITS | Encounter Summary ---
:1980 Author Organization [place] Address [address] [place] [address] Care Team Providers Name Role Phone Bebeto Roth MD Unavailable Astrid Rios PA-C Unavailable Keri Elias MD Primary Care Provider Unavailable Reason for Visit Reason Comments Pre-Op Exam Encounter Details Date Type Department Care Team Description 09/29/2017 Office Visit [facility] Cameron Manjarrez [facility] BLAYNE Ramirez WIRE SPOOLER physical exam [address] [facility] [address] [facility] (Primary Dx) 5th Floor [place], [place] [id number] Anesthesia Record Procedure Summary Procedure Name [...] this encounter H&P Notes Cameron Manjarrez APRN SENIOR MANUFACTURING TECHNICIAN - 09/29/2017 10:00 AM CDT Images from [...] Dr. Roth in treatment of scoliosis at [facility]. History is obtained from the patient. She [...] morning ??? fluticasone (FLONASE) 50 MCG/ACT spray [place] 1-2 sprays into both nostrils daily (Patient takingdifferently: [place] 1-2 sprays into both nostrils as needed [...] Neg Test Valid Only At Latest Units: [facility] Specimen Expires Unknown 10/02/2017 Color Urine Unknown Yellow Appearance Urine Unknown Clear Glucose Urine Latest Ref Range: NEG^Negative mg/dL Negative Bilirubin Urine Latest Ref Range: NEG^Negative Negative Ketones Urine Latest Ref Range: NEG^Negative mg/dL Negative Specific [place] Urine Latest Ref Range: 1.003 - 1.035 [...] Dr Shaikh. BLAYNE Palomino Preoperative Assessment Center [facility] documented in this encounter Plan of Treatment Not on filedocumented as of this encounter Results (ABNORMAL) UA reflex to Microscopic and Culture (09/29/2017 12:11 PM CDT) [facility] Time Signature Color Urine Yellow 09/29/2017 [facility] 12:41 PM [facility] Appearance Urine Clear 09/29/2017 [facility] 12:41 PM [facility] Glucose Urine Negative NEG^Negat 09/29/2017 [facility] mg/dL 12:41 PM [facility] Bilirubin Urine Negative NEG^Negat 09/29/2017 [facility] [place] 12:41 PM [facility] [place] Ketones Urine Negative NEG^Negat 09/29/2017 [facility] [place] mg/dL 12:41 PM [facility] Specific [place] 1.013 1.003 - 09/29/2017 [facility] F Urine 1.035 12:41 PM [facility] Blood Urine Large (A) NEG^Negat 09/29/2017 [facility] [place] 12:41 PM [facility] pH Urine 6.0 5.0 - 7.0 09/29/2017 [facility] pH 12:41 PM [facility] Protein Albumin Negative NEG^Negat 09/29/2017 [facility] Urine [place] mg/dL 12:41 PM [facility] Urobilinogen 0.0 0.0 - 2.0 09/29/2017 [facility] mg/dL mg/dL 12:41 PM [facility] Nitrite Urine Negative NEG^Negat 09/29/2017 [facility] [place] 12:41 PM [facility] Leukocyte Negative NEG^Negat 09/29/2017 [facility] Esterase Urine franco 12:41 PM [facility] Source Midstream 09/29/2017 [facility] Urine 12:16 PM [facility] RBC Urine 3 (H) 0 - 2 09/29/2017 [facility] /HPF 12:41 PM [facility] WBC Urine 1 0 - 5 09/29/2017 [facility] /HPF 12:41 PM [facility] Squamous 3 (H) 0 - 1 09/29/2017 [facility] Epithelial /HPF /HPF 12:41 PM [place] Urine [facility] Transitional Epi <1 (A) FEW^Few 09/29/2017 [facility] F /HPF 12:41 PM [facility] Mucous Urine Present (A) NEG^Negat 09/29/2017 [facility] [place] /LPF 12:41 PM [facility] Specimen (Source) Anatomical Collection Method Collection Time Re ceived Time Location / / Volume Laterality Examination of 09/29/2017 12:11 8 midstream urine PM CDT 12:16 PM CDT specimen (procedure) Cameron Manjarrez APRN, CNP LAB - URINE ORDERABLES Performing Organization Address City/[facility]/ZIP Code Phon e Number [address] [address] [facility] Hemoglobin A1c (09/29/2017 12:03 PM CDT) P athologist Signature Hemoglobin A1C 5.3 0 - 5.6 % 09/29/2017 [facility] 12:48 PM CDT [facility] Comment: Normal <5.7% Prediabetes 5.7-6.4% ??Diab etes 6.5% or higher - adopted from ADA consensus guidelines. Specimen Anatomical Collection Method Collection Time Receive d Time (Source) Location / / Volume Laterality Blood specimen 09/29/2017 12:03 8 (specimen) PM CDT 12:04 PM CDT Cameron Manjarrez APRN WIRE SPOOLER LAB - BLOOD ORDERABLES Performing Organization Address City/[facility]/ZIP Code Phon e Number [phone] [place] [address] [facility] INR (09/29/2017 12:03 PM CDT) P athologist Signature INR 1.02 0.86 - 1.14 09/29/2017 [facility] 12:28 PM CDT [facility] Specimen Anatomical Collection Method Collection Time Receive d Time (Source) Location / / Volume Laterality Blood specimen 09/29/2017 12:03 8 (specimen) PM CDT 12:04 PM CDT Cameron Manjarrez APRN, CNP LAB - BLOOD ORDERABLES Performing Organization Address City/[facility]/ZIP Code Phon e Number [phone] [place] [address] [facility] (ABNORMAL) CBC with platelets (09/29/2017 12:03 PM CDT) Patholo gist Method Time Signature WBC 4.8 4.0 - 11.0 09/29/2017 [facility] 10e9/L 12:18 PM CDT [facility] RBC Count 4.87 3.8 - 5.2 09/29/2017 [facility] 10e12/L 12:18 PM CDT [facility] Hemoglobin 12.5 11.7 - 09/29/2017 [facility] 15.7 g/dL 12:18 PM CDT [facility] Hematocrit 39.4 35.0 - 09/29/2017 [facility] 47.0 % 12:18 PM CDT [facility] MCV 81 78 - 100 09/29/2017 [facility] fl 12:18 PM CDT [facility] MCH 25.7 (L) 26.5 - 09/29/2017 [facility] 33.0 pg 12:18 PM CDT [facility] MCHC 31.7 31.5 - 09/29/2017 [facility] 36.5 g/dL 12:18 PM CDT [facility] RDW 13.8 10.0 - 09/29/2017 [facility] 15.0 % 12:18 PM CDT [facility] Platelet Count 332 150 - 450 09/29/2017 [facility] 10e9/L 12:18 PM CDT [facility] Specimen Anatomical Collection Method Collection Time Receive d Time (Source) Location / / Volume Laterality Blood specimen 09/29/2017 12:03 8 (specimen) PM CDT 12:04 PM CDT Cameron Manjarrez APRN WIRE SPOOLER LAB - BLOOD ORDERABLES Performing Organization Address City/State/ZIP Code Phon e Number [address] [address] [facility] Basic metabolic panel (09/29/2017 12:03 PM CDT) P athologist Signature Sodium 141 133 - 144 09/29/2017 [facility] mmol/L 12:40 PM CDT [facility] Potassium 3.6 3.4 - 5.3 09/29/2017 [facility] mmol/L 12:40 PM CDT [facility] Chloride 106 94 - 109 09/29/2017 [facility] mmol/L 12:40 PM CDT [facility] Carbon Dioxide 28 20 - 32 09/29/2017 [facility] mmol/L 12:40 PM CDT [facility] Anion Gap 7 3 - 14 09/29/2017 [facility] mmol/L 12:40 PM CDT [facility] Glucose 90 70 - 99 09/29/2017 [facility] mg/dL 12:40 PM CDT [facility] Urea Nitrogen 12 7 - 30 09/29/2017 [facility] mg/dL 12:40 PM CDT [facility] Creatinine 0.85 0.52 - 09/29/2017 [facility] 1.04 mg/dL 12:40 PM CDT [facility] GFR Estimate 76 >60 09/29/2017 [facility] mL/min/1.7 12:[address] Comment: Non GFR Calc GFR Estimate If >90 >60 mL/min/1.7m2 09/29/2017 12:40 PM [facility] Black CDT [facility] Comment: GFR Calc Calcium 8.8 8.5 - 10.1 mg/dL 09/29/2017 12:40 PM CDT [facility] Specimen Anatomical Collection Method Collection Time Receive d Time (Source) Location / / Volume Laterality Blood specimen 09/29/2017 12:03 8 (specimen) PM CDT 12:04 PM CDT Cameron Manjarrez APRN WIRE SPOOLER LAB - BLOOD ORDERABLES Performing Organization Address City/State/ZIP Code Phon e Number [address] [address] [facility] ABO/Rh type and screen (09/29/2017 12:03 PM CDT) [facility] gist Method Time Signature ABO O 09/29/2017 [facility] 1:[address] [facility] RH(D) Pos [facility] Antibody Neg 09/29/2017 [facility] Screen 1:[address] [facility] Test Valid [facility] 09/29/2017 [facility] [place] [facility] 12:46 PM CDT [facility] Specimen 10/26/2017 10/23/2017 [facility] Expires 6:57 AM CDT [facility] Blood Bank Pre admission 09/29/2017 [facility] Comment form received 4:03 PM CDT [facility] 09/29/17 for [facility] 10/23/17. AA Specimen Anatomical Collection Method Collection Time Receive d Time (Source) Location / / Volume Laterality Blood specimen 09/29/2017 12:03 8 (specimen) PM CDT 12:04 PM CDT Cameron Cruzon SALES ADMINISTRATION MANAGER WIRE SPOOLER LAB - BLOOD BANK TEST ORDER Performing Organization Address City/State/ZIP Code Phon e Number [facility] [address] [place] [address] [facility] [address] [place] [address] [facility] documented in this encounter Visit Diagnoses Diagnosis Preop general physical exam - Primary Other specified pre-operative examinatio n documented in this encounter Care Teams Manager Utilization Management Relationship Specialty Start Date End Date Keri Elias PCP - General Family Practice 03/12/15 9 MD Ira Glez David Wayne, MD Orthopedics 07/09/[address] [facility] [address] [place], [place] [address] Astrid Rios PA-C Physician Netbackup Administrator Physician Netbackup Administrator - 07/09/14 Surgical documented as of this encounter
--- OUTSIDE RECORDS SUMMARY | 2022-01-07 14:38 | XMS_ITS | Encounter Summary ---
:1980 Author Organization [place] Address [facility] [place] [address] Care Team Providers Name Role Phone Bebeto Roth MD Unavailable Astrid Rios PA-C Unavailable Keri Elias MD Primary Care Provider Unavailable Reason for Visit Reason Comments UTI Encounter Details Date Type Department Care Team Description 07/05/2017 Office Visit [facility] Lakisha Cantu, Bladder in fection (Primary Dx); Medicine Clinic DO Environmental [address]; [address] [address] [address] [place], [place] [phone] Social History Tobacco Use Types Packs/Day Years [...] (UA) ([facility]) Result Value Ref Range Specific [place] Urine 1.020 1.005 - 1.030 pH Urine [...] urine culture. - Urinalysis, Micro If (UA) ([facility]) - cephALEXin (KEFLEX) 500 MG capsule; Take 1 capsule (500 mg) by mouth 2 times daily - Urine Culture Aerobic Bacterial Environmental allergies - fluticasone (FLONASE) 50 MCG/ACT spray; [place] 1-2 sprays into both nostrils daily Dermatitis [...] Description DISEASE DIAGNOSTIC LABORATORY Special Specimen 07/05/2017 [facility] received in 4:48 PM CDT [facility] preservative [facility] Culture Micro No growth 07/06/2017 INFECTIOUS 10:09 PM DISEASE CDT DIAGNOSTIC LABORATORY Specimen (Source) Anatomical Collection Method Collection Time Re ceived Time Location / / Volume Laterality Examination of 07/05/2017 12:58 8 1:02 midstream urine PM CDT PM CDT specimen (procedure) Lakisha Cantu DO LAB - MICRO GENERAL ORDERABL ES Performing Organization Address City/State/ZIP Code Phon e Number INFECTIOUS DISEASES [address] [place] [address] DIAGNOSTIC LABORATORY, [facility] INFECTIOUS DISEASE [address] [place] [address], [facility] DIAGNOSTIC LABORATORY [address] [address], [facility] (ABNORMAL) Urinalysis, Micro If (UA) ([facility]) (07/05/2017 9:39 AM CDT) [facility] gist Method Time Signature Specific [place] 1.020 1.005 - [place] Urine 1.030 FAMILY [...] Organization Address City/State/ZIP Code Phon e Number [facility] [address] [place] [phone] [facility] documented in this encounter Visit Diagnoses Diagnosis Bladder infection - Primary Cystitis, unspecified Environmental allergies Allergic rhinitis, cause unspecified Dermatitis Contact dermatitis and other eczema, due to unspecified cause documented in this encounter Care Teams Nougat Candy Maker Helper Relationship Specialty Start Date End Date Keri Elias PCP - General Family Practice 03/12/15 9 MD Ira Glez David Wayne, MD Orthopedics 07/09/14 [facility] [place] [address] Astrid Rios PA-C Physician College Football Coach Physician College Football Coach - 07/09/14 Surgical documented as of this encounter
--- OUTSIDE RECORDS SUMMARY | 2022-01-07 14:38 | XMS_ITS | Encounter Summary ---
:1980 Author Organization [place] Address [facility] [place] [address] Care Team Providers Name Role Phone Bebeto Roth MD Unavailable Astrid Rios PA-C Unavailable Keri Elias MD Primary Care Provider Unavailable Reason for Visit Diagnostic Imaging XR - Closed Specialty Diagnoses / Procedures Referred By Contact Refer red To Contact Diagnoses S/P spinal fusion Bebeto Roth MD Procedures XR Leg Length Evaluation [address] [place], [place] [address] Referral ID Status Reason Start Date Expiration Date Visits Requ ested Visits Authorized [id number] Closed 06/29/2017 06/29/2018 1 1 Encounter Details Date Type Department Care Team Description 06/29/2017 Radiant Appointment [facility] Imaging Bebeto Roth S/P spinal fusion Center Farhana MD Devan 9 [facility] [address] [place] [address] [phone] Social History Tobacco Use Types Packs/Day Years [...] No substantial global coronal imbalance. Sagittal Vertical [place] (A vertical line drawn from the center [...] No substantial global coronal imbalance. Sagittal Vertical [place] (A vertical line drawn from the center [...] status documented in this encounter Care Teams Drapery Maker Relationship Specialty Start Date End Date MeghaAlexa Tysonne PCP - General Family Practice 03/12/15 9 MD Ira Glez David Wayne, MD Orthopedics 07/09/[address] [address] Astrid Rios PA-C Physician Supervisor Nuclear Medicine Physician Supervisor Nuclear Medicine - 07/09/14 Surgical documented as of this encounter
--- OUTSIDE RECORDS SUMMARY | 2022-01-07 14:38 | XMS_ITS | Encounter Summary ---
:1980 Author Organization [place] Address [address] [place] [address]. [place] [address] Care Team Providers Name Role Phone Bebeto Roth MD Unavailable Astrid Rios PA-C Unavailable Keri Elias MD Primary Care Provider Unavailable Reason for Visit Auth/Cert Specialty Diagnoses / Procedures Referred By Contact Refer red To Contact Surgery Diagnoses Scoliosis Kyphosis Ur Periop Procedures [facility] [address] [place] [phone] Phone: Fax: Referral ID Status Reason Start Date Expiration Date Visits Requ ested Visits Authorized [id number] 1 1 Encounter Details Date Type Department Care Team Description 10/23/2017 Anesthesia Event [facility] Sarah Parry MD [address] [place], [place] [id number] PeriOp Services Bryan Tejeda, DIRECTOR OF BLOOD HIDE MILL WORKER [address] [place] [id number] [place] [phone] Anesthesia Record Procedure Summary Procedure Name [...] Antibody Screen: Neg Test Valid Only At: [facility]. Specimen Expires: 10/02/2017 ?? 09/29/2017 12:11 Color Urine: Yellow Appearance Urine: Clear Glucose Urine: Negative Bilirubin Urine: Negative Ketones Urine: Negative Specific [place] Urine: 1.013 pH Urine: 6.0 Protein Albumin Urine: Negative Urobilinogen mg/dL: 0.0 Nitrite Urine: Negative Blood Urine: Large (A) Leukocyte Esterase Urine: Negative Source: Midstream Urine WBC Urine: 1 RBC Urine: 3 (H) Squamous Epithelial /HPF Urine: 3 (H) Transitional Epi: <1 (A) Mucous Urine: Present (A) ? PAC Discussion and Assessment ?? ASA Classification: 2 Case is suitable for: [place] and [place] Anesthetic techniques and relevant risks discussed: GA Invasive monitoring and risk discussed: Yes Types: Possibility and Risk of blood transfusion discussed: Yes NPO instructions given: Additional anesthetic preparation and risks discussed: Needs early admission to pre-op area: Other: ?? PAC Resident/RELIEF MATE Anesthesia Assessment: Jocelin Garg is a 37 [...] Antibody Screen: Neg Test Valid Only At: [facility]. Specimen Expires: 10/02/2017 ?? 09/29/2017 12:11 Color Urine: Yellow Appearance Urine: Clear Glucose Urine: Negative Bilirubin Urine: Negative Ketones Urine: Negative Specific [place] Urine: 1.013 pH Urine: 6.0 Protein Albumin Urine: Negative Urobilinogen mg/dL: 0.0 Nitrite Urine: Negative Blood Urine: Large (A) Leukocyte Esterase Urine: Negative Source: Midstream Urine WBC Urine: 1 RBC Urine: 3 (H) Squamous Epithelial /HPF Urine: 3 (H) Transitional Epi: <1 (A) Mucous Urine: Present (A) ? PAC Discussion and Assessment ?? ASA Classification: 2 Case is suitable for: [place] Anesthetic techniques and relevant risks discussed: [place] Invasive monitoring and risk discussed: Yes Types: Possibility and Risk of blood transfusion discussed: Yes NPO instructions given: Additional anesthetic preparation and risks discussed: Needs early admission to pre-op area: Other: ?? PAC Resident/RELIEF MATE Anesthesia Assessment: Joclein Garg is a 37 yo female scheduled [...] Intra-procedure documented in this encounter Care Teams Research Physicist Relationship Specialty Start Date End Date Keri Elias PCP - General Family Practice 03/12/15 9 MD Ira Glez David Wayne, MD Orthopedics 07/09/14 [facility] [facility] [address] [place] [address] Astrid Rios PA-C Physician Card Seller Physician Card Seller - 07/09/14 Surgical documented as of this encounter
--- OUTSIDE RECORDS SUMMARY | 2022-01-07 14:38 | XMS_ITS | Encounter Summary ---
:1980 Author Organization [place] Address [address] [facility] [place] [address] Care Team Providers Name Role Phone Bebeto Roth MD Unavailable Astrid Rios PA-C Unavailable Keri Elias MD Primary Care Provider Unavailable Encounter Details Date Type Department Care Team Description 09/29/2017 Anesthesia Event [facility] WahrPatria MD [address] [facility] [address] [place] [address] Assessment Center Cameron Manjarrez APRN [employer] [address] [place] [address] [address] [facility] 5th [place] [address] Anesthesia Record Procedure Summary Procedure [...] Anesthesia Preprocedure Evaluation - Cameron Manjarrez APRN HARVESTER OPERATOR - 09/29/2017 10:14 AM CDT Anesthesia Evaluation [...] Antibody Screen: Neg Test Valid Only At: [facility] Specimen Expires: 10/02/2017 09/29/2017 12:11 Color Urine: Yellow Appearance Urine: Clear Glucose Urine: Negative Bilirubin Urine: Negative Ketones Urine: Negative Specific [place] Urine: 1.013 pH Urine: 6.0 Protein Albumin Urine: Negative Urobilinogen mg/dL: 0.0 Nitrite Urine: Negative Blood Urine: Large (A) Leukocyte Esterase Urine: Negative Source: Midstream Urine WBC Urine: 1 RBC Urine: 3 (H) Squamous Epithelial /HPF Urine: 3 (H) Transitional Epi: <1 (A) Mucous Urine: Present (A) PAC Discussion and Assessment ASA Classification: 2 Case is suitable for: [place] Anesthetic techniques and relevant risks discussed: [place] Invasive monitoring and risk discussed: Yes Types: Possibility and Risk of blood transfusion discussed: Yes NPO instructions given: Additional anesthetic preparation and risks discussed: Needs early admission to pre-op area: Other: PAC Resident/PRESCHOOL TEACHER AIDE Anesthesia Assessment: Azul Garg is a 37 [...] filedocumented in this encounter Care Teams Credit Card Interviewer Relationship Specialty Start Date End Date Madlon-Brittnee, Keri PCP - General Family Practice 03/12/15 9 MD Ira Glez David Wayne, MD Orthopedics 07/09/14 [facility] [address] Astrid Rios PA-C Physician Special Machine Stitcher Physician Special Machine Stitcher - 07/09/14 Surgical documented as of this encounter
--- OUTSIDE RECORDS SUMMARY | 2022-01-07 14:38 | XMS_ITS | Encounter Summary ---
:1980 Author Organization [place] Address [facility] [place] [address] Care Team Providers Name Role Phone Bebeto Roth MD Unavailable Astrid Rios PA-C Unavailable Keri Elias MD Primary Care Provider Unavailable Reason for Visit Diagnostic Imaging XR - Closed Specialty Diagnoses / Procedures Referred By Contact Refer red To Contact Diagnoses S/P spinal fusion Bebeto Roth MD Procedures XR Spine Complete 2 Views [address] [place], [place] [address] Referral ID Status Reason Start Date Expiration Date Visits Requ ested Visits Authorized [id number] Closed 06/28/2017 06/28/2018 1 1 Encounter Details Date Type Department Care Team Description 06/29/2017 Radiant Appointment [facility] Imaging Bebeto Roth S/P spinal fusion Center Farhana MD Devan 9 [facility] [address] [place] [address] [phone] Social History Tobacco Use Types Packs/Day Years [...] No substantial global coronal imbalance. Sagittal Vertical [place] (A vertical line drawn from the center [...] No substantial global coronal imbalance. Sagittal Vertical [place] (A vertical line drawn from the center [...] status documented in this encounter Care Teams Scout Leaser Relationship Specialty Start Date End Date MeghaAlexa Tysonne PCP - General Family Practice 03/12/15 9 MD Ira Glez David Wayne, MD Orthopedics 07/09/[address] [place] [address] Astrid Rios PA-C Physician Submarine Cable Equipment Technician Physician Submarine Cable Equipment Technician - 07/09/14 Surgical documented as of this encounter
--- OUTSIDE RECORDS SUMMARY | 2022-01-07 14:38 | XMS_ITS | Encounter Summary ---
:1980 Author Organization [place] Address [address] [facility] [place] [place] [address] Care Team Providers Name Role Phone Bebeto Roth MD Unavailable Astrid Rios PA-C Unavailable Keri Elias MD Primary Care Provider Unavailable Reason for Referral - Closed Specialty Diagnoses / Procedures Referred By Contact Refer red To Contact Diagnoses Adolescent idiopathic scoliosis of thoracolumbar region S/P spinal fusion Other kyphosis of thoracic region Bebeto Roth MD [address] [place], [place] [address] Referral ID Status Reason Start Date Expiration Date Visits Requ ested Visits Authorized [id number] Closed 06/29/2017 06/29/2018 1 1 Reason for Visit Reason Comments RECHECK follow up mid back fusion. d iscuss surgery. DOS 10-12-2009 PSF [id number] Encounter Details Date Type Department Care Team Description 06/29/2017 Office Visit [facility] Bebeto Roth [facility] ent idiopathic scoliosis of thoracolumbar region (Primary Dx); Clinic MD Devan S/P spinal fusion; 9 [facility] SE [address] Other kyphosis of thoracic r egion 4th [address] [place] [address] [phone] Social History Tobacco Use Types Packs/Day Years [...] MD: Keri Elias. MD: Self Referred ?? Field Training Agent? No ?? 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 ?? Date of injury: None Type of [...] (willing/able to accept information): Yes Any cultural factors/yazidism beliefs that may influence understanding or compliance? [...] Referral Routine Adolescent idiopathic Ordered: 06/29/2017 (For [facility] Only) scoliosis of thoracolumba r region S/P spinal fusio n Other kyphosis of thoracic region documented as of this encounter Visit Diagnoses Diagnosis Adolescent idiopathic scoliosis of thora columbar region - Primary Scoliosis (and kyphoscoliosis), idiopath ic S/P spinal fusion Arthrodesis status Other kyphosis of thoracic region documented in this encounter Care Teams Cartographic Drafter Relationship Specialty Start Date End Date Keri Elias PCP - General Family Practice 03/12/15 9 MD Ira Glez David Wayne, MD Orthopedics 07/09/14 [facility] [facility] [address] [place] [address] Astrid Rios PA-C Physician Real Estate Manager Physician Real Estate Manager - 07/09/14 Surgical documented as of this encounter
--- OUTSIDE RECORDS SUMMARY | 2022-01-07 14:38 | XMS_ITS | Encounter Summary ---
:1980 Author Organization [place] Address [facility] [place] [address] Care Team Providers Name Role Phone Bebeto Roth MD Unavailable Astrid Rios PA-C Unavailable Keri Elias MD Primary Care Provider Unavailable Reason for Visit Diagnostic Imaging XR - Closed Specialty Diagnoses / Procedures Referred By Contact Refer red To Contact Diagnoses S/P spinal fusion Bebeto Roth MD Procedures XR Spine Complete 2 Views [address] [place], [place] [address] Referral ID Status Reason Start Date Expiration Date Visits Requ ested Visits Authorized [id number] Closed 06/28/2017 06/28/2018 1 1 Encounter Details Date Type Department Care Team Description 06/29/2017 Radiant Appointment [facility] Orthopaedics Bebeto Roth S/P spinal fusion XRay MD Devan 9 [facility] SE [address] 4th [address] [facility], [address] [place] [address] [phone] Social History Tobacco Use Types Packs/Day Years [...] No substantial global coronal imbalance. Sagittal Vertical [place] (A vertical line drawn from the center [...] No substantial global coronal imbalance. Sagittal Vertical [place] (A vertical line drawn from the center [...] status documented in this encounter Care Teams Apartment Maintenance Worker Relationship Specialty Start Date End Date MeghaAlexa Tysonne PCP - General Family Practice 03/12/15 9 MD Ira Glez David Wayne, MD Orthopedics 07/09/[address] [place] [address] Astrid Rios PA-C Physician [place] Cutter Physician [place] Cutter - 07/09/14 Surgical documented as of this encounter
--- OUTSIDE RECORDS SUMMARY | 2022-01-07 14:38 | XMS_ITS | Encounter Summary ---
:1980 Author Organization [place] Address [facility]0 [facility] [place] [address] Care Team Providers Name Role Phone Myles De Oliveira MD Unavailable Astrid Rios PA-C Unavailable Keri Elias MD Primary Care Provider Unavailable Reason for Visit Auth/Cert Specialty Diagnoses / Procedures Referred By Contact Refer red To Contact Surgery Diagnoses Scoliosis Kyphosis Ur Periop Procedures PROCEDURE PLACEHOLDER ORTHO [address] [place] [address] Phone: Fax: Referral ID Status Reason Start Date Expiration Date Visits Requ ested Visits Authorized [id number] 1 1 Encounter Details Date Type Department Care Team Description 10/23/2017 Surgery [facility] Myles De Oliveira Exten dayna Of Fusion PeriOp Services MD Devan Thoracic 4-Thoracic [id number] [facility] [address] Miguel Khan [facility] [place] [address] [place], [place] Osteotomies Thoracic [phone] [id number] [id number] Surgery Details Date/Time Status Location OR Service Patient Case Case Traum a Class Class Type Case? 10/23/17 7:30 Posted UR OR UR OR Orthopedics Surgery AM 14 Admit Panel 1 Procedure LRB Anes Op Region Wound Class Commen ts Extension Of Fusion N/A General Spine I-Clean Exten dayna Of Fusion Thoracic 4-Thoracic 10, T horacic 4-Thoracic 10, Rivera Khan Osteotomies Irvera Khan Thoracic 6-10 Osteotomies Thoracic 6-10 Surgeon [...] PM Myles De Oliveira MD [facility] 01/17/2018 7:45 AM Myles De Oliveira MD [facility] Orthopaedic Surgery appointments are at the [facility] ([address] [place] [address]). Call [phone] to schedule a follow-up appointment at this [...] CHANGED Details fluticasone (FLONASE) 50 MCG/ACT spray [place] 1-2 sprays into both nostrils daily, Disp-16 g, R-3, E-Prescribe pseudoePHEDrine (SUDAFED) 120 MG 12 hr tablet Take 120 mg by mouth every morning, Historical STOP taking these medications ibuprofen (ADVIL/MOTRIN) 600 MG tablet Comments: Reason for Stopping: Discharge Procedure Orders Reason for your hospital stay Order Comments: You were hospitalized after surgery for pain control and therapy. Adult [facility] Follow-up and recommended labs and tests Order Comments: You have an appointment with Dr. De Oliveira on 12/13/17. M [facility] ([address] [place] [address]). Call [phone] to schedule a follow-up appointment at this [...] from 7 am to 7 pm daily [facility] ([address] [place] [address]). -Pain control: Take medication as prescribed, but [...] help keep you hydrated. -CALL OUR CLINIC ([phone] during regular office hours, or [phone] for the on-call residentMD for questions - [...] Start Date End Date fluticasone (FLONASE) 50 [place] 1-2 sprays 16 g 3 07/05 MCG/ACT [...] prior to contacting the Orthopaedic Surgery resident flight control specialist. Thank you! Sunni Hernandez MD - 10/26/2017 1:21 PM CDT Urinary retention No BM yet Ambulating with PT Last night nursing notes reviewed No cp No sob No fever No chills No vomiting No loss of consciousness Vital signs: Temp: 99.1 ??F (37.3 ??C) Temp src: Oral BP: 97/50 Pulse: 114 Heart Rate: 103 Resp: 16 SpO2: 98 % O1Plslej: None (Room air) Oxygen Delivery: 6 LPM [...] Rivera RN - 10/26/2017 10:58 AM CDT Parts Lister Progress Note Admission Date/Time: 10/23/2017 Attending MD: [...] Plan: home Angelica RAMOSN RN CCM RN Parts Lister 10A E-mail: [email or web address] Pager: [phone] To contact weekend RNCC, dial * * [phone] and enter pager number [phone] at prompt. [...] prior to contacting the Orthopaedic Surgery resident flight control specialist. Thank you! Sunni Otoole MD - 10/25/2017 [...] found in last 7 days. A/P ; Joeclin Garg is a 37 year old female [...] Mobility Skill: Sit to Supine Level of [place]: Sit/Supine stand-by assist Bed Mobility Skill: Supine to Sit Level of [place]: Supine/Sit stand-by assist Transfer Skill: Bed to Chair/Chair to Bed Level of [place]: Bed to Chair stand-by assist Assistive Device - Transfer Skill Bed to Chair Chair to Bed Rehab Eval standard walker Transfer Skill: Sit to Stand Level of [place]: Sit/Stand stand-by assist Assistive Device for Transfer: Sit/Stand standard walker Transfer Skill: Toilet Transfer Level of [place]: Toilet stand-by assist Upper Body Dressing Level of [place]: Dress Upper Body independent Lower Body Dressing Level of [place]: Dress Lower Body stand-by assist Toileting Level of [place]: Toilet stand-by assist Grooming Level of [place]: Grooming independent Eating/Self Feeding Level of [place]: Eating independent Activities of Daily Living Analysis Impairments Contributing to Impaired Activities of Daily Living pain;post surgical precautions;ROM decreased Clinical Impression Criteria for Skilled Therapeutic Interventions Met evaluation only Risks and Benefits of Treatment have been explained. Yes Patient, Family & other staff in agreement with plan of care Yes [facility]-PAC TM 6 Clicks ?? 2016, Trustees of [facility], under license to [employer]. All rights reserved. 6 Clicks Short Forms Daily Activity Inpatient Short Form [facility] AM-PAC??? 6 Clicks Daily Activity Inpatient [...] prior to contacting the Orthopaedic Surgery resident flight control specialist. Thank you! Sunni Otoole MD - 10/24/2017 [...] Pericolace . Add miralax Discuss with ortho BUS COMPANY MANAGER and care team rounds Tala Roche Pt, PT - 10/24/2017 10:19 AM CDT 10/24/17 1004 Quick Adds Type of Visit Initial PT Evaluation Ladder Operator Ladder Operator Present no Language Hungarian Living Environment Lives With child(gabino), dependent;significant other [...] in agreement with plan of care Yes [facility]-PAC TM 6 Clicks ?? 2016, Trustees of [facility], under license to [employer]. All rights reserved. 6 Clicks Short Forms Basic Mobility Inpatient Short Form [facility]??? 6 Clicks V.2 Basic Mobility Inpatient Short [...] prior to contacting the Orthopaedic Surgery resident flight control specialist. Thank you! documented in this encounter Consult Notes Michael Hilario MD - 10/23/2017 3:54 PM CDTAssociated Order(s): INTERNAL MEDICINE ADULT IP CONSULT FOR [facility] INTERNAL MEDICINE CONSULTATION REQUESTING PHYSICIAN: Myles De Oliveira MD REASON FOR CONSULTATION: For recommendations for medical comorbidities. Assessment Jocelin Garg is a 37 year old female admitted on 10/23/2017 for spinal Sx 1) Extension Of Fusion Thoracic 4-Thoracic 10, Rivera Khan Osteotomies Thoracic 6-10 post op D# 0 Hemodynamics: stable - continue on IV fluids, until adequate PO. Analgesia: adequate , on OUTREACH LIBRARIAN Antiemetics: as per protocol. If does not [...] with any questions. Michael Hilario MD (Pager- [phone]) Internal Medicine/ Hospitalist CHIEF COMPLAINT: 37 year [...] to Encounter: fluticasone (FLONASE) 50 MCG/ACT spray [place] 1-2 sprays into both nostrils daily (Patient taking differently: [place] 1-2 sprays into both nostrils as needed [...] a 37 year old female who speaks Hungarian. Procedure Procedure(s): Extension Of Fusion Thoracic 4-Thoracic [...] mg (total dose) last given at 1245 OUTREACH LIBRARIAN / epidural Yes. OUTREACH LIBRARIAN - hydromorphone (Dilaudid) Capnography Yes Telemetry ECG Rhythm: Normal sinus rhythm Inpatient Heavy Machinery Operator Ordered? No Labs Glucose Lab Results Component Value Date GLC 90 09/29/2017 Hgb Lab Results Component Value Date HGB 12.5 09/29/2017 INR Lab Results Component Value Date INR 1.02 09/29/2017 PACU Imaging Not applicable Wound/Incision Incision/Surgical Site 10/23/17 Back (Active) Incision Assessment [facility] 10/23/2017 11:18 AM Closure Approximated;Liquid [...] Date 10/23/17 0700 - 10/24/17 0659 Shift 1367-0238 0137-1798 4697-3918 24 Hour Total I N T A K E I.V. 1450 1450 Shift Total (mL/kg) 1450 (21.05) 1450 (21.05) O U T P U T Urine 100 100 Blood 310 310 Shift Total (mL/kg) 410 (5.95) 410 (5.95) Weight (kg) 68.9 68.9 68.9 68.9 Drains / Florez Closed/Suction Drain Back Accordion 10 Jordanian (Active) Site Description [facility] 10/23/2017 12:07 PM Dressing Status Normal: Clean, Dry & Intact 10/23/2017 12:07 PM Drainage Appearance Normal 10/23/2017 12:07 PM Number of days:0 Urethral Catheter Latex 16 fr (Active) Tube Description [facility] 10/23/2017 12:07 PM Collection Container [...] needing completion None René Esposito, RN ASCOM [id number] documented in this encounter Miscellaneous Notes Plan [...] goal(s). See goals on Care Plan in [facility] electronic health record for goal details. Goals met Therapy recommendation(s): Continue home exercise program. Plan of Care - Jocelin Mayes PT - 10/26/2017 10:32 AM CDT Problem: Patient Care Overview Goal: Plan of Care/Patient Progress Review Watch Crystal Cutter PT Patient plan for discharge: Home Current [...] Overview Goal: Plan of Care/Patient Progress Review Watch Crystal Cutter PT Patient plan for discharge: Home with [...] Additional Info: Pt very anxious throughout shift, bid writer listened to pt's concerns and addressed [...] had oxycodone dose increased to 10-15mg. Dilaudid OUTREACH LIBRARIAN discontinued this am.Offered ice packs but pt [...] Overview Goal: Plan of Care/Patient Progress Review Watch Crystal Cutter PT Patient plan for discharge: Home with [...] Care/Patient Progress Review A/O x 4. Increased OUTREACH LIBRARIAN from 0.2 to 0.3 due to inadequate [...] 1 Skin: Intact Pain: Moderate. Manageable w/ OUTREACH LIBRARIAN pump. Neuro/CMS: Intact, no numbness or tingling reported Dressing(s): Posterior back CDI Diet: Clear liquids, tolerating well. Equipment: CAPNO OUTREACH LIBRARIAN pump IV's/Drains: PIV R hand infusing NS 100mL/hr and OUTREACH LIBRARIAN pump Hemovac - 0ccs Florez - patent Plan: Continue to monitor Additional Info: Discontinue OUTREACH LIBRARIAN pump POD #1 Discontinue florez POD #1 [...] of surgical incisions and hemovac replacement Pain: OUTREACH LIBRARIAN dilaudid on and verified. Pt has discomfort in lower back. And bladder Neuro/CMS: Intact denies numbness and tingling. Prior to surgery pt had intermittently tingling in BL feet. Dressing(s): CDI Aquacel posterior from neck down to Buttocks. hemovac in place CDI. Diet: C.liq. Nausea Zofran given LDA: PIV left hand running LR and Dilaudid OUTREACH LIBRARIAN. R hand piv SL. Hemovac in place and patent. Aquacel. Florez catheter. Equipment: IV pole, PCDs, OUTREACH LIBRARIAN pump. CAPNO Plan: TBT Additional Info: Pt [...] Myles De Oliveira MD N/A None available Heading Machine Operator(s): Huong Stock PA-C Anesthesia: General Estimated blood [...] to PACU Plan: Pain: Scheduled Tylenol, Dilaudid OUTREACH LIBRARIAN, oxycodone PRN, Valium PRN Activity: Weight bearing [...] in 5-7 days. Huong Stock PA-C Pager: [phone] If no answer or after 4pm, please page the flight control specialist ortho resident. Op Note - Myles De [...] surgery SURGEON: Myles De Oliveira Jr., MD CONTRACTS LAW PROFESSOR: Huong Stock PA-C. No qualified resident was [...] turned in position prone on a [facility] 4-ammonia solution preparer frame. She was prepared and draped in [...] the O- arm and transferred to the [facility] image-guided workstation. This was now used to [...] CC Name: JOCELIN PINEDO MRN: [id number] Account: [id number] : 1980 Procedure Date: 10/23/2017 Document: [id number] cc: Copy for Patient Keri Mitchell Beaulieu [...] spine. Positive global coronal imbalance. Sagittal Vertical [place] (A vertical line drawn from the center [...] spine. Positive global coronal imbalance. Sagittal Vertical [place] (A vertical line drawn from the center [...] Test Analysis Performed At [facility] gist Range Method Time Signature Color Urine Light Yellow 10/26/2017 [facility] 3:08 PM T [facility] Appearance Urine Clear 10/26/2017 [facility] O F 3:08 PM CDT [facility] Glucose Urine Negative NEG^Nega 10/26/2017 [facility] tive 3:08 PM CDT [place] [facility] mg/dL [facility] Bilirubin Urine Negative NEG^Nega 10/26/2017 [facility] Ketones Urine 10 (A) NEG^Nega 10/26/2017 [facility] tive 3:08 PM CDT [place] [facility] mg/dL [facility] Specific [place] 1.005 1.003 - 10/26/2017 [place] O F Urine 1.035 3:08 PM T [facility] Blood Urine Moderate (A) NEG^Nega 10/26/2017 [facility] tive 3:08 PM T [facility] pH Urine 6.5 5.0 - 10/26/2017 [facility] 7.0 pH 3:08 PM T [facility] Protein Albumin Negative NEG^Nega 10/26/2017 [facility] Urine tive 3:08 PM CDT [place] [facility] mg/dL [facility] Urobilinogen Normal 0.0 - 10/26/2017 [facility] mg/dL 2.0 3:08 PM CDT [place] [facility] mg/dL [facility] Nitrite Urine Negative NEG^Nega 10/26/2017 [facility] tive 3:08 PM CDT [facility] Leukocyte Negative NEG^Nega 10/26/2017 [facility] Esterase Urine tive 3:08 PM CDT [facility] Source Unspecified 10/26/2017 [facility] Urine 2:54 PM CDT [facility] WBC Urine 1 0 - 5 10/26/2017 [facility] /HPF 3:08 PM CDT [facility] RBC Urine 1 0 - 2 10/26/2017 [facility] /HPF 3:08 PM CDT [facility] Squamous <1 0 - 1 10/26/2017 [facility] Epithelial /HPF /HPF 3:08 PM CDT [facility] Specimen (Source) Anatomical Collection Method Collection Time Re ceived Time Location / / Volume Laterality Unspecified Urine URINE SPECIMEN 10/26/2017 2:40 10/26 2:54 OBTAINED BY CLEAN PM CDT PM CDT CATCH PROCEDURE / Unknown Sunni Hernandez MD LAB - URINE ORDERABLES Performing Organization Address City/State/ZIP Code Phon e Number [facility] [address] [place] [address] [facility] (ABNORMAL) CBC with platelets (10/26/2017 8:00 AM CDT) [facility] gist Method Time Signature WBC 6.1 4.0 - 11.0 10/26/2017 [facility] 10e9/L 8:24 AM CDT [facility] RBC Count 3.88 3.8 - 5.2 10/26/2017 [facility] 10e12/L 8:24 AM CDT [facility] Hemoglobin 9.9 (L) 11.7 - 10/26/2017 [facility] 15.7 g/dL 8:24 AM CDT [facility] Hematocrit 30.5 (L) 35.0 - 10/26/2017 [facility] 47.0 % 8:24 AM CDT [facility] MCV 79 78 - 100 10/26/2017 [facility] fl 8:24 AM CDT [facility] MCH 25.5 (L) 26.5 - 10/26/2017 [facility] 33.0 pg 8:24 AM CDT [facility] MCHC 32.5 31.5 - 10/26/2017 [facility] 36.5 g/dL 8:24 AM CDT [facility] RDW 13.3 10.0 - 10/26/2017 [facility] 15.0 % 8:24 AM CDT [facility] Platelet Count 244 150 - 450 10/26/2017 [facility] 10e9/L 8:24 AM CDT [facility] Specimen Anatomical Collection Method Collection Time Receive d Time (Source) Location / / Volume Laterality Blood specimen 10/26/2017 8:00 AM 018 8:01 (specimen) CDT AM CDT Huong Stock PA-C LAB - BLOOD ORDERABLES Performing Organization Address City/State/ZIP Code Phon e Number [facility] [address] [place] [address] [facility] (ABNORMAL) Glucose by meter (10/25/2017 8:34 AM [...] 10/25/2017 [facility] 10e9/L 6:34 AM CDT [facility] RBC Count 4.03 3.8 - 5.2 10/25/2017 [facility] 10e12/L 6:34 AM CDT [facility] Hemoglobin 10.2 (L) 11.7 - 10/25/2017 [facility] 15.7 g/dL 6:34 AM CDT [facility] Hematocrit 32.0 (L) 35.0 - 10/25/2017 [facility] 47.0 % 6:34 AM CDT [facility] MCV 79 78 - 100 10/25/2017 [facility] fl 6:34 AM CDT [facility] MCH 25.3 (L) 26.5 - 10/25/2017 [facility] 33.0 pg 6:34 AM CDT [facility] MCHC 31.9 31.5 - 10/25/2017 [facility] 36.5 g/dL 6:34 AM CDT [facility] RDW 13.5 10.0 - 10/25/2017 [facility] 15.0 % 6:34 AM CDT [facility] Platelet Count 248 150 - 450 10/25/2017 [facility] 10e9/L 6:34 AM CDT [facility] Specimen Anatomical Collection Method Collection Time Receive d Time (Source) Location / / Volume Laterality Blood specimen 10/25/2017 6:26 AM 018 6:28 (specimen) CDT AM CDT Huong Stock PA-C LAB - BLOOD ORDERABLES Performing Organization Address City/State/ZIP Code Phon e Number [facility] [address] [place] [address] [facility] ([facility]NORMAL) CBC with platelets (10/24/2017 7:05 AM CDT) [facility]ist Method Time Signature WBC 8.8 4.0 - 11.0 10/24/2017 [facility] 10e9/L 7:17 AM CDT [facility] RBC Count 4.04 3.8 - 5.2 10/24/2017 [facility] 10e12/L 7:17 AM CDT [facility] Hemoglobin 10.2 (L) 11.7 - 10/24/2017 [facility] 15.7 g/dL 7:17 AM CDT [facility] Hematocrit 32.2 (L) 35.0 - 10/24/2017 [facility] 47.0 % 7:17 AM CDT [facility] MCV 80 78 - 100 10/24/2017 [facility] 7:17 AM CDT [facility] MCH 25.2 (L) 26.5 - 10/24/2017 [facility] 33.0 pg 7:17 AM CDT [facility] MCHC 31.7 31.5 - 10/24/2017 [facility] 36.5 g/dL 7:17 AM CDT [facility] RDW 13.3 10.0 - 10/24/2017 [facility] 15.0 % 7:17 AM CDT [facility] Platelet Count 235 150 - 450 10/24/2017 [facility] 10e9/L 7:17 AM T [facility] Specimen Anatomical Collection Method Collection Time Receive d Time (Source) Location / / Volume Laterality Blood specimen 10/24/2017 7:05 AM 018 7:06 (specimen) CDT AM CDT Huong Stock PA-C LAB - BLOOD ORDERABLES Performing Organization Address City/State/ZIP Code Phon e Number [facility] [address] [place] [address] [facility] (ABNORMAL) Basic metabolic panel (10/24/2017 7:05 AM CDT) Analysis Performed At Patho logist Time Signature Sodium 144 133 - 144 10/24/2017 [facility] mmol/L 7:33 AM [facility] Potassium 3.6 3.4 - 5.3 10/24/2017 [facility] mmol/L 7:33 AM [facility] Chloride 110 (H) 94 - 109 10/24/2017 [facility] mmol/L 7:33 AM [facility] Carbon Dioxide 27 20 - 32 10/24/2017 [facility] mmol/L 7:33 AM [facility] Anion Gap 7 3 - 14 10/24/2017 [facility] mmol/L 7:33 AM [facility] Glucose 99 70 - 99 10/24/2017 [facility] mg/dL 7:33 AM [facility] Urea Nitrogen 6 (L) 7 - 30 10/24/2017 [facility] mg/dL 7:33 AM [facility] Creatinine 0.74 0.52 - 10/24/2017 [facility] 1.04 mg/dL 7:33 AM [facility] GFR Estimate 89 >60 10/24/2017 [facility] mL/min/1.7 7:[address] Comment: Non GFR Calc GFR Estimate If >90 >60 mL/min/1.7m2 10/24/2017 7:33 A [facility] Black [facility] Comment: GFR Calc Calcium 7.6 (L) 8.5 - 10.1 mg/dL 10/24/2017 7:33 AM CDT [facility] Specimen Anatomical Collection Method Collection Time Receive d Time (Source) Location / / Volume Laterality Blood specimen 10/24/2017 7:05 AM 018 7:06 (specimen) CDT AM CDT Huong Stock PA-C LAB - BLOOD ORDERABLES Performing Organization Address City/State/ZIP Code Phon e Number [facility] [address] [place] [address] [facility] (ABNORMAL) Glucose by meter (10/24/2017 2:17 AM [...] be read by a radiologist or a [facility] non-radiologis t provider. Myles De Oliveira MD [...] Signature HCG Qual Urine Negative NEG^Negati 10/23/2017 [facility] 6:22 AM CDT [facility] Comment: This test is for screening purposes. ??R esults should be interpreted along with the clinical picture. ??Confirmation te sting is available if warranted by ordering [id number], HCG Quantitative Pregna ncy. Specimen Anatomical Collection Method Collection Time Receive d Time (Source) Location / / Volume Laterality Urine specimen URINE SPECIMEN / 10/23/2017 5:50 AM 11/2017 6:06 (specimen) Unknown CDT AM CDT Sarah Parry MD LAB - URINE ORDERABLES Performing Organization Address City/[facility]/ZIP Code Phon e Number [facility] [address] [place], [place] [id number] [place] [address] EMG - HIM SCAN (10/23/2017 12:00 AM [...] used when administering multiple Central Nervous System (FISHING LURE ASSEMBLER) depressing meds within a short time frame., Post-procedure Given 10/24/2017 6:06 AM CDT 25 mg diphenhydrAMINE (BENADRYL) injection 25 mg 25 mg, Intravenous, EVERY 6 HOURS PRN, i tching, Only give if patient unable to take PO., Starting on Mon10/23/17 at 1417, Caution to be us ed when administering multiple Central Nervous System (FISHING LURE ASSEMBLER) de pressing meds within a short time [...] or analgesic side effects. Hold while on OUTREACH LIBRARIAN or with regular IV opioid dosing. 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 d/c'd)1148 (Given - Provider: Patricia Gonsalez, [...] used when administering multiple Central Nervous System (FISHING LURE ASSEMBLER) depressing meds within a short time frame., Post-procedure diphenhydrAMINE (BENADRYL) injection 25 mg(Linked Grou p 2) 0327 (See Alternative - Provider: Rhonda Sheppard RN) 25 mg, Intravenous, EVERY 6 HOURS PRN, i tching, Only give if patient unable to take PO., Starting 10/23/17 at 1417, Caution to be used when administering multiple Central Nervous System (FISHING LURE ASSEMBLER) depress ing meds within a short time [...] metoclopramide (REGLAN) injection 10 mg(Linked Group 3) 7508 (Given - Provider: Emma Morales RN) 10 [...] metoclopramide (REGLAN) tablet 10 mg(Linked Group 3) 6458 (See Alternative - Provider: Emma Morales RN) [...] or analgesic side effects. Hold while on OUTREACH LIBRARIAN or with regular IV opioid dosing. Maximum [...] used when administering multiple Central Nervous System (FISHING LURE ASSEMBLER) depressing meds within a short time frame.
Post-procedure Or diphenhydrAMINE (BENADRYL) injection 25 mgJump to med 25 mg, Intravenous, EVERY 6 HOURS PRN, i tching, Only give if patient unable to take PO., Starting 10/23/17 at 1417
Caution to be used when administering multiple Central Nervous System (FISHING LURE ASSEMBLER) depressing meds within a short time fra [...]
Post-procedure documented in this encounter Care Teams Hospital Nurse Liaison Relationship Specialty Start Date End Date Keri Elias PCP - General Family Practice 03/12/15 9 MD Ira Glez, Myles Hartman MD Orthopedics 07/09/[address] [place] [address] Astrid Rios PA-C Physician Heading Machine Operator Physician Heading Machine Operator - 07/09/14 Surgical documented as of this encounter
--- OUTSIDE RECORDS SUMMARY | 2022-01-07 14:38 | XMS_ITS | Encounter Summary ---
:1980 Author Organization [place] Address [address] [facility] [place] [address] Care Team Providers Name Role Phone Bebeto Roth MD Unavailable Astrid Rios PA-C Unavailable Keri Elias MD Primary Care Provider Unavailable Reason for Visit Reason Onset Date Comments Forms 10/05/2017 FMLA paperwork f/u Encounter Details Date Type Department Care Team Description 10/05/2017 Telephone [facility] Orthopaedic Bebeto Roth Forms ( FMLA paperwork Clinic MD Devan f/u) [address] [place] [address] [id number] Social History Tobacco Use Types Packs/Day Years Used Date Smoking Tobacco: Never Smokeless Tobacco: Never Alcohol Use Standard Drinks/Week Comments No 0 (1 standard drink = 0.6 oz pure alcoho l) Sex Assigned at Date Recorded Not on file documented as of this encounter Miscellaneous Notes Telephone Encounter - Miguelina Ward LPN - 10/05/2017 9:47 AM CDT Advised patient to call Dr. Roth's payroll secretary, Gavi, regarding FMLA paperwork. Number provided. [...] on filedocumented in this encounter Care Teams Chemistry Associate Relationship Specialty Start Date End Date Keri Elias PCP - General Family Practice 03/12/15 9 MD Ira Glez David Wayne, MD Orthopedics 07/09/[address] [place] [address] Astrid Rios PA-C Physician Aluminum Container Tester Physician Aluminum Container Tester - 07/09/14 Surgical documented as of this encounter
--- OUTSIDE RECORDS SUMMARY | 2022-01-07 14:38 | XMS_ITS | Encounter Summary ---
:1980 Author Organization [place] Address [facility] [place] [address] Care Team Providers Name Role Phone Bebeto Roth MD Unavailable Astrid Rios PA-C Unavailable Keri Elias MD Primary Care Provider Unavailable Encounter Details Date Type Department Care Team Description 09/29/2017 Allied Health/Nurse [facility] Preoperative Rn, Pac Visit Assessment Center [address] [place] [address] 5th Floor [place] [phone] Social History Tobacco Use Types Packs/Day [...] Arrival time: 5:30 am Please come to: [facility] [address] [place] [address] -Family Centered Specialist parking is available in front of [facility] from 5:15AM to 8:00PM. If you prefer, park your car in the Green Lot. -Proceed to the 3rd floor, check in at the Adult Surgery Waiting Lounge. [phone] If an escort is needed stop at [...] - Do NOT wear any makeup, fingernail syriac or jewelry. - Begin using Incentive Spirometer 1 week prior to surgery. Use 4 times per day, up to 5-10 breaths each time. Bring Incentive Spirometer to hospital. Questions or Concerns: If you have questions or concerns prior to your surgery, call [phone]. (Mon - Fri 8 am- 5:30 pm) [...] filedocumented in this encounter Care Teams Steam Press Operator Relationship Specialty Start Date End Date Keri Elias PCP - General Family Practice 03/12/15 9 MD Ira Glez David Wayne, MD Orthopedics 07/09/[address] [place] [address] Astrid Rios PA-C Physician Wet End Supervisor Physician Wet End Supervisor - 07/09/14 Surgical documented as of this encounter
--- OUTSIDE RECORDS SUMMARY | 2022-01-07 14:38 | XMS_ITS | Encounter Summary ---
:1980 Author Organization [place] Address [address] [facility] [place] [address] Care Team Providers Name Role Phone Bebeto Roth MD Unavailable Astrid Rios PA-C Unavailable Keri Elias MD Primary Care Provider Unavailable Reason for Visit Reason Onset Date Comments Schedule Surgery 07/20/2017 Dr. Roth Encounter Details Date Type Department Care Team Description 07/20/2017 Telephone [facility] Orthopaedic Bebeto Roth Surgery (MD Ira Gardner) [address]th [address] [place] [phone] Social History Tobacco Use Types Packs/Day Years [...] Patient has been scheduled for 10/24/17 at [place]. She will see PAC for her pre-op H&P on 09/29/17. documented in this encounter Plan of Treatment Not on filedocumented as of this encounter Visit Diagnoses Not on filedocumented in this encounter Care Teams Software Installer Relationship Specialty Start Date End Date Keri Elias PCP - General Family Practice 03/12/15 9 MD Ira Glez David Wayne, MD Orthopedics 07/09/[address] [address] Astrid Rios PA-C Physician Gas Pumping Station Helper Physician Gas Pumping Station Helper - 07/09/14 Surgical documented as of this encounter
--- OUTSIDE RECORDS SUMMARY | 2022-01-07 14:38 | XMS_ITS | Encounter Summary ---
:1980 Author Organization [place] Address [address] [facility] [place] [address] Care Team Providers Name Role Phone Bebeto Roth MD Unavailable Astrid Rios PA-C Unavailable Keri Elias MD Primary Care Provider Unavailable Reason for Visit Reason Onset Date Comments Schedule Surgery 07/27/2017 Dr. Ira arizmendi Encounter Details Date Type Department Care Team Description 07/27/2017 Telephone [facility] Orthopaedic Bebeto Roth e Surgery (MD Ira Gardner) [address] 4th [address] [place] [address] [phone] Social History Tobacco Use Types Packs/Day Years [...] on filedocumented in this encounter Care Teams Diver Assistant Relationship Specialty Start Date End Date Keri Elias PCP - General Family Practice 03/12/15 9 MD Ira Glez David Wayne, MD Orthopedics 07/09/[address] [place] [address] Astrid Rios PA-C Physician Exchange Engineer Physician Exchange Engineer - 07/09/14 Surgical documented as of this encounter
--- OUTSIDE RECORDS SUMMARY | 2022-01-07 14:39 | XMS_ITS | Encounter Summary ---
:1980 Author Organization [place] Address [address] [facility] [place] [address] Care Team Providers Name Role Phone Bebeto Roth MD Unavailable Astrid Rios PA-C Unavailable Keri Elias MD Primary Care Provider Unavailable Reason for Visit Reason Comments Care BALA. NO concerns Encounter Details Date Type Department Care Team Description 02/28/2017 Office Visit Narda Mcleod Keri Elias of [facility] Clinic MD Newton risk , [address], antepar mauricio ([address]) [place], [place] [address] Social History Tobacco Use Types Packs/Day Years Used Date Smoking Tobacco: Never Smokeless Tobacco: Never Alcohol Use Standard Drinks/Week Comments No 0 (1 standard drink = 0.6 oz pure alcoho l) Sex Assigned at Date Recorded Not on file documented as of this encounter Last Filed Vital Signs Vital Sign Reading Time Taken Comments Blood Pressure 111/77 02/28/2017 7:54 AM FRENCH LECTURER Pulse 96 02/28/2017 7:54 AM FRENCH LECTURER Temperature 36.4 ??C (97.5 ??F) 02/28/2017 7:54 AM FRENCH LECTURER Respiratory Rate 16 02/28/2017 7:54 AM FRENCH LECTURER Oxygen Saturation 100% 02/28/2017 7:54 AM FRENCH LECTURER Inhaled Oxygen Concentration - - Weight 79.9 kg (176 lb 3.2 oz) 02/28/2017 7:54 AM FRENCH LECTURER Height - - Body Mass Index 31.21 [...] with the final plan. Keri Elias MD CH LECTURER documented in this encounter Plan of Treatment Not on filedocumented as of this encounter Visit Diagnoses Diagnosis Supervision of high risk , ante - Primary documented in this encounter Care Teams Product Mgr Relationship Specialty Start Date End Date Keri Elias PCP - General Family Practice 03/12/15 9 MD Ira Glez David Wayne, MD Orthopedics 07/09/[address] [place] [address] Astrid Rios PA-C Physician Fuel Dock Attendant Physician Fuel Dock Attendant - 07/09/14 Surgical documented as of this encounter
--- OUTSIDE RECORDS SUMMARY | 2022-01-07 14:39 | XMS_ITS | Encounter Summary ---
:1980 Author Organization [place] Address [address] [place] [address] Care Team Providers Name Role Phone Bebeto Roth MD Unavailable Astrid Rios PA-C Unavailable Keri Elias MD Primary Care Provider Unavailable Reason for Visit Reason Comments Ultrasound Encounter Details Date Type Department Care Team Description 10/19/2016 Orders Only [facility]'Shruthi Verdin [facility] Medicine Clinic A trimester [address] [place] [address] [place] [address] (Wo rk) Social History Tobacco Use [...] :Mar 08, 2017 EGA by this U/S: [id number] (+/- 7days): VINCENT by this U/S: 03/07/17 EFW 345.95g, 0lb 12oz Weight Percentile: 63.9%tile Follow up: Routine follow up as needed. PCP: Keri Elias Physician/Patch Driller: Shruthi Bland Indications: Standard Exam and survey LMP: Patient's last menstrual period was 06/01/2016. FHR: 153 BPM Fluid: normal TJ: 10.83 Placenta Location: Posterior and Fundal number:1 Presentation: Cephalic Technique: Transabdominal Machine: MyForce Pro 5 SURVEY Cerebellum Intracranial Anatomy Normal [...] FL: 3.34 cm 20wks 3d Shruthi Bland, [facility] RVT Attestation of Reviewer. I reviewed the [...] :Mar 08, 018 EGA by this U/S: [id number] (+/- 7days): ED D by this ??U/S: 03/07/17 ? EFW 345.95g, 0lb 12oz ??Weight Percentil e: 63.9%tile Follow up: Routine follow up as needed. PCP: Keri Elias Physician/Patch Driller: Shruthi Ruelas iams Indications: Standard Exam and brittany vey LMP: Patient's last menstrual period was 06/01/2016. ?? FHR: 153 BPM ??Fluid: normal TJ: 10.83 Placenta Location: Posterior and Fundal number:1 ??Presentation: Cephalic Technique: Transabdominal Machine: MyForce Pro 5 SURVEY ? Cerebellum ? Intracranial [...] cm ?? 20wks 3d ?? Shruthi Bland [facility] RVT Attestation of Reviewer. I reviewed the images and agree with eliu singer interpretation above. August Ontiveros MD Steffanie Parker MD IMG US ORDERABLES documented in this encounter Visit Diagnoses Diagnosis care, second trimester documented in this encounter Care Teams Rear Admiral Relationship Specialty Start Date End Date Keri Elias PCP - General Family Practice 03/12/15 9 MD Ira Glez David Wayne, MD Orthopedics 07/09/14 [facility] [facility] [address] [address] [place] [address] Astrid Rios PA-C Physician Practice Administrator Physician Practice Administrator - 07/09/14 Surgical documented as of this encounter
--- OUTSIDE RECORDS SUMMARY | 2022-01-07 14:39 | XMS_ITS | Encounter Summary ---
:1980 Author Organization [place] Address [address] [facility] [place] [address] Care Team Providers Name Role Phone Bebeto Roth MD Unavailable Astrid Rios PA-C Unavailable Keri Elias MD Primary Care Provider Unavailable Reason for Visit Auth/Cert Specialty Diagnoses / Procedures Referred By Contact Refer red To Contact Obstetrics Diagnoses Maternity*VINCENT 03/08/2017/Labor Encounter for triage in patient Labor and delivery, indication for care (normal spontaneous vaginal delivery) [place] [id number] [place] [address] Phone: Referral ID Status Reason Start Date Expiration Date Visits Requ ested Visits Authorized [id number] 1 1 Encounter Details Date Type Department Care Team Description 03/05/2017 Anesthesia Event [facility] Mauricio Hodges es Birthplace MD Flex [address] [address] [facility] [address] [place] [address] (Wo rk) Anesthesia Record Procedure [...] of intravascular, subdural or intrathecal injection: Yes AL SERVICE LIAISON Anesthesia Procedure Notes - Taye Hodges MD - 03/05/2017 9:27 PM SOCIAL SERVICE LIAISON Associated Order(s): ANE UU EPIDURAL BLOCK Epidural [...] what appeared to be a normal space. AL SERVICE LIAISON Anesthesia Preprocedure Evaluation - Taye Hodges MD [...] risks, benefits and alternatives discussed with: Patient.. AL SERVICE LIAISON documented in this encounter Plan of Treatment Not on filedocumented as of this encounter Procedures Procedure Name Priority Date/Time Associated Diagnosis Comme nts ANE EPIDURAL BLOCK Routine 03/06/2017 12:36 AM SOCIAL SERVICE LIAISON Procedure Note - Sapna Hodges MD - [...] ANE EPIDURAL BLOCK Routine 03/05/2017 9:29 PM SOCIAL SERVICE LIAISON Procedure Note - Sapna Hodges MD - [...] (MARCAINE) 0.125 % Given 03/05/2017 9:22 PM SOCIAL SERVICE LIAISON 5 mL s injection (diluted from stock concentration by MD or PROCESS SAFETY MANAGER) EPIDURAL, PRN, Starting on 03/05/17 at 9, Anesthesia Intra-op Given 03/05/2017 9:19 PM SOCIAL SERVICE LIAISON 5 mLs lidocaine-EPINEPHrine 1.5 %-[id number] inj ection Given 03/05/2017 9:18 PM SOCIAL SERVICE LIAISON 3 mLs EPIDURAL, PRN, Starting on 03/05/17 at 8, Anesthesia Intra-op documented in this encounter Care Teams Medical Office Secretary Relationship Specialty Start Date End Date Keri Elias PCP - General Family Practice 03/12/15 9 MD Ira Glez David Wayne, MD Orthopedics 07/09/14 [facility] [place] [address] Astrid Rios PA-C Physician Trainman Physician Trainman - 07/09/14 Surgical documented as of this encounter
--- OUTSIDE RECORDS SUMMARY | 2022-01-07 14:39 | XMS_ITS | Encounter Summary ---
:1980 Author Organization [place] Address [address] [facility] [place] [address] Care Team Providers Name Role Phone Bebeto [...] initial prescr iption of contraceptive pills [address], [address] [place] [address] Social History Tobacco Use Types Packs/Day Years Used Date Smoking Tobacco: Never Smokeless Tobacco: Never Alcohol Use Standard Drinks/Week Comments No 0 (1 standard drink = 0.6 oz pure alcoho l) Sex Assigned at Date Recorded Not on file documented as of this encounter Last Filed Vital Signs Vital Sign Reading Time Taken Comments Blood Pressure 112/83 04/12/2017 11:05 AM CIGARETTE MAKER Pulse 94 04/12/2017 11:05 AM CIGARETTE MAKER Temperature - - Respiratory Rate 16 04/12/2017 11:05 AM CIGARETTE MAKER Oxygen Saturation 98% 04/12/2017 11:05 AM CIGARETTE MAKER Inhaled Oxygen Concentration - - Weight 69.8 kg (153 lb 12.8 oz) 04/12/2017 11:05 AM CIGARETTE MAKER Height - - Body Mass Index 27.03 03/30/2017 12:31 PM CIGARETTE MAKER documented in this encounter Progress Notes Keri [...] spent in counseling about symptoms and plan. RETTE MAKER documented in this encounter Plan of Treatment Not on filedocumented as of this encounter Procedures Procedure Name Priority Date/Time Associated Diagnosis Comme nts HEMOGLOBIN (HGB) Routine 04/12/2017 11:46 Iron deficiency Resu lts for this (LABDAQ) AM CIGARETTE MAKER anemia, unspecified procedur e are in iron deficiency the results anemia type section. documented in this encounter Results Hemoglobin (HGB) (LabDAQ) (04/12/2017 11:46 AM CIGARETTE MAKER) P athologist Signature Hemoglobin 11.8 11.7 - 15.7 [facility] g/dL MEDICINE LABDAQ Specimen Anatomical Collection Method Collection Time Receive d Time (Source) Location / / Volume Laterality Blood specimen CAPILLARY BLOOD / 04/12/2017 11:46 03/17 (specimen) Unknown AM CIGARETTE MAKER 11:48 AM CIGARETTE MAKER Keri Elias MD LAB - LABDAQ Performing Organization Address City/State/ZIP Code Phon e Number [facility] [address] [place], [place] [address] LABDAQ documented in this encounter Visit Diagnoses Diagnosis Iron deficiency anemia, unspecified iron deficiency anemia type - Primary Encounter for initial prescription of co ntraceptive pills General counseling for prescription of o ral contraceptives documented in this encounter Care Teams Asp Net Programmer Relationship Specialty Start Date End Date Keri Elias PCP - General Family Practice 03/12/15 9 MD Ira Glez David Wayne, MD Orthopedics 07/09/14 [facility] [facility] [address] [place] [address] Astrid Rios PA-C Physician Singing Messenger Physician Singing Messenger - 07/09/14 Surgical documented as of this encounter
--- OUTSIDE RECORDS SUMMARY | 2022-01-07 14:39 | XMS_ITS | Encounter Summary ---
:1980 Author Organization [place] Address [facility] [place] [address] Care Team Providers Name Role Phone Bebeto Roth MD Unavailable Astrid Rios PA-C Unavailable Keri Elias MD Primary Care Provider Unavailable Reason for Visit Reason Onset Date Comments Care f/u Erroneous encounter-disregard 01/27/2017 Encounter Details Date Type Department Care Team Description 01/27/2017 Office Visit Narda [facility]cleod K[facility] Elias Medicine Clinic MD [place] ENCOUNTER--DISREGARD [address], (Primar y Dx) [address] [place] [address] Social History Tobacco Use Types Packs/Day Years Used Date Smoking Tobacco: Never Smokeless Tobacco: Never Alcohol Use Standard Drinks/Week Comments No 0 (1 standard drink = 0.6 oz pure alcoho l) Sex Assigned at Date Recorded Not on file documented as of this encounter Last Filed Vital Signs Vital Sign Reading Time Taken Comments Blood Pressure 114/76 01/27/2017 2:15 PM CONTINUOUS TOWEL ROLLER Pulse 99 01/27/2017 2:15 PM CONTINUOUS TOWEL ROLLER Temperature 36.7 ??C (98 ??F) 01/27/2017 2:15 PM CONTINUOUS TOWEL ROLLER Respiratory Rate - - Oxygen Saturation 100% 01/27/2017 2:15 PM CONTINUOUS TOWEL ROLLER Inhaled Oxygen Concentration - - Weight 79.5 kg (175 lb 3.2 oz) 01/27/2017 2:15 PM CONTINUOUS TOWEL ROLLER w / shoes Height - - Body Mass Index 31.04 08/05/2016 8:14 AM CDT documented in this encounter Progress Notes Tristan Pham CMA - 01/27/2017 2:57 PM CST This encounter was opened in error. Please disregard. INUOUS TOWEL ROLLER documented in this encounter Plan of Treatment Not on filedocumented as of this encounter Visit Diagnoses Diagnosis ERRONEOUS ENCOUNTER--DISREGARD - Primary documented in this encounter Care Teams Lamp Cleaner Street Light Relationship Specialty Start Date End Date Keri Elias PCP - General Family Practice 03/12/15 9 MD Ira Glez David Wayne, MD Orthopedics 07/09/[address] [place] [address] Astrid Rios PA-C Physician Product Management Manager Physician Product Management Manager - 07/09/14 Surgical documented as of this encounter
--- OUTSIDE RECORDS SUMMARY | 2022-01-07 14:39 | XMS_ITS | Encounter Summary ---
:1980 Author Organization [place] Address [address] [facility] [place] [address] Care Team Providers Name Role Phone Bebeto Roth MD Unavailable Astrid Rios PA-C Unavailable Keri Elias MD Primary Care Provider Unavailable Reason for Referral Diagnostic Imaging XR - Closed Specialty Diagnoses / Procedures Referred By Contact Refer red To Contact Diagnoses S/P spinal fusion Bebeto Roth MD Procedures XR Spine Complete 2 Views [address] [address] Referral ID Status Reason Start Date Expiration Date Visits Requ ested Visits Authorized [id number] Closed 06/28/2017 06/28/2018 1 1 Diagnostic Imaging XR - Closed Specialty Diagnoses / Procedures Referred By Contact Refer red To Contact Diagnoses S/P spinal fusion Bebeto Roth MD Procedures XR Spine Complete 2 Views [address] [place], [place] [address] Referral ID Status Reason Start Date Expiration Date Visits Requ ested Visits Authorized [id number] Closed 06/28/2017 06/28/2018 1 1 Encounter Details Date Type Department Care Team Description 06/28/2017 Orders Only [facility] Orthopaedic Bebeto Roth S/P spi nal fusion Clinic MD Devan (Primary Dx) [address] [place] [address] [place] [address] [phone] Social History Tobacco Use Types Packs/Day Years [...] No substantial global coronal imbalance. Sagittal Vertical [place] (A vertical line drawn from the center [...] No substantial global coronal imbalance. Sagittal Vertical [place] (A vertical line drawn from the center [...] No substantial global coronal imbalance. Sagittal Vertical [place] (A vertical line drawn from the center [...] No substantial global coronal imbalance. Sagittal Vertical [place] (A vertical line drawn from the center [...] status documented in this encounter Care Teams Inventory Manager Relationship Specialty Start Date End Date Keri Elias PCP - General Family Practice 03/12/15 9 MD Ira Glez David Wayne, MD Orthopedics 07/09/[address] [place] [address] Astrid Rios PA-C Physician Licensed Practical Nurse Clinic Nurse Physician Licensed Practical Nurse Clinic Nurse - 07/09/14 Surgical documented as of this encounter
--- OUTSIDE RECORDS SUMMARY | 2022-01-07 14:39 | XMS_ITS | Encounter Summary ---
:1980 Author Organization [place] Address [address] [facility] [place] [address] Care Team Providers Name Role Phone Bebeto Roth MD Unavailable Astrid Rios PA-C Unavailable Keri Elias MD Primary Care Provider Unavailable Reason for Visit Reason Comments Care BALA Encounter Details Date Type Department Care Team Description 11/10/2016 Office Visit [facility] Melisa Supervisio n of [facility] MD Lois risk , [address] [place] [address], [address] [place] [address] [address] [place] [phone] [address] [place], [place] [phone] Social History Tobacco Use Types Packs/Day Years [...] . The patient plans to deliver at [facility] with myself and/or OB partner: ABRAM Cadena. care at [facility]. - Patient will continue taking vitamins [...] the final plan. Melisa Salvador MD PGY3 [facility] Resident Pager: [phone] Nicole Strickland MD - 11/10/2016 3:40 PM CDT Preceptor Attestation: Patient seen and discussed with the resident. Assessment and plan reviewed with resident and agreedupon. Supervising Physician: Nicole Strickland MD [facility] documented in this encounter Plan of Treatment Not on filedocumented as of this encounter Visit Diagnoses Diagnosis Supervision of high risk , ante documented in this encounter Care Teams Manager Community Outreach Relationship Specialty Start Date End Date Keri Elias PCP - General Family Practice 03/12/15 9 MD Ira Glez David Wayne, MD Orthopedics 07/09/[address] [place] [address] Astrid Rios PA-C Physician Position Clerk Physician Position Clerk - 07/09/14 Surgical documented as of this encounter
--- OUTSIDE RECORDS SUMMARY | 2022-01-07 14:39 | XMS_ITS | Encounter Summary ---
:1980 Author Organization [place] Address [address] [place] [address]. [place] [address] Care Team Providers Name Role Phone Bebeto Roth MD Unavailable Astrid Rios PA-C Unavailable Keri Elias MD Primary Care Provider Unavailable Reason for Visit Reason Comments Laboring Auth/Cert Specialty Diagnoses / Procedures Referred By Contact Refer red To Contact Obstetrics Diagnoses Maternity*VINCENT 03/08/2017/Labor Encounter for triage in patient Labor and delivery, indication for care (normal spontaneous vaginal delivery) [address] [address] Phone: Referral ID Status Reason Start Date Expiration Date Visits Requ ested Visits Authorized [id number] 1 1 Encounter Details Date Type Department Care Team Description 03/05/2017 - Hospital Encounter [facility] Keri Elias MD (normal spontaneous vaginal delivery) (Primary Dx); 03/07/2017 [facility] Lakisha Cantu DO [facility] [address] [place] [address] test positive [address] [place] [id number] Social History Tobacco Use Types Packs/Day Years Used Date Smoking Tobacco: Never Smokeless Tobacco: Never Alcohol Use Standard Drinks/Week Comments No 0 (1 standard drink = 0.6 oz pure alcoho l) Sex Assigned at Date Recorded Not on file documented as of this encounter Last Filed Vital Signs Vital Sign Reading Time Taken Comments Blood Pressure 105/76 03/07/2017 7:58 AM [employer] Pulse 109 03/05/2017 5:34 PM [employer] Temperature 36.6 ??C (97.8 ??F) 03/07/2017 7:58 AM [employer] Respiratory Rate 18 03/07/2017 7:58 AM [employer] Oxygen Saturation 97% 03/06/2017 11:30 AM [employer] Inhaled Oxygen Concentration - - Weight - - Height - - Body Mass Index - - documented in this encounter Discharge Summaries Lakisha Cantu DO - 03/07/2017 9:50 AM CST Images from the original note were not included. [facility] Post- Discharge Summary Azul Tellez Age: [age] year old Date of : 1980 Date of Admission: 03/05/2017 Date of Discharge:: 03/07/2017 Admitting Physician: Keri Elias MD Discharge Physician: Lakisha Cantu DO Home clinic: [facility] Admission Diagnoses: Maternity*VINCENT 03/08/2017/Labor Encounter for triage in patient Labor and delivery, indication for care (normal spontaneous vaginal delivery) Discharge Diagnosis: Normal spontaneous vaginal delivery Intrauterine at 39+5 weeks gestation Patient Active Problem List Diagnosis ??? Adolescent idiopathic scoliosis ??? Health Longterm ??? Acne vulgaris ??? Anxiety ??? Congenital [...] time ??? fluticasone (FLONASE) 50 MCG/ACT spray [place] 1-2 sprays into both nostrils daily 16 [...] Frequent UTI fluticasone (FLONASE) 50 MCG/ACT spray [place] 1-2 sprays into both nostrils daily Qty: [...] Disposition: Discharged to home Lakisha Cantu DO [employer] documented in this encounter Discharge Instructions Discharge [...] hands. Keep your nails clean and short. [employer] documented in this encounter Medications at Time [...] Abnormal maternal glucose tolerance, antepartum fluticasone (FLONASE) [place] 1-2 sprays into 16 g 3 07/05/2017 [...] Diagnosis ??? Adolescent idiopathic scoliosis ??? Health Longterm ??? Acne vulgaris ??? Anxiety ??? Congenital [...] movement control. DO Kenia Rowanlaila Family Medicine [facility] [employer] Keri Elias MD - 03/05/2017 6:15 PM [...] Diagnosis ??? Adolescent idiopathic scoliosis ??? Health Longterm ??? Acne vulgaris ??? Anxiety ??? Congenital [...] delivery, considering NO gas. Gin Deutsch DO [facility] Attestation: This patient has been seen and evaluated by me, Keri Elias on 03/05/2017. I saw and discussed the case with the primary resident the care team. I agree with the findings and plan in this note. I have reviewed today's vital signs, medications, laboratory results. Keri Elias MD [facility] [employer] documented in this encounter Miscellaneous Notes L&D Delivery Note - Keri Elias MD - 03/07/2017 1:44 PM [employer] OB Vaginal Delivery Note Azul Tellez Age: [age] year old Date of : 1980 GA: 39w5d GP: Labor Complications: None EBL: mL QBL: 105 mL Delivery Type: Vaginal, Spontaneous Delivery ROM to Delivery Time: 5h 02m [place] Weight: 3.65 kg (8 lb 0.8 oz) [...] Normal 1:1 continuous labor support provided by?: shingle bolt cutter/Placenta Date and Time Delivery Date: 03/06/17 Delivery Time: 12:52 AM Placenta Date/Time: 03/06/2017 12:58 AM Oxytocin given at the time of delivery: after delivery of baby Vaginal Counts Initial count performed by 2 team members: Two Team Members Jada Gonzalez RN [place] Suture [place] Sponges Instruments Initial counts 2 5 Added [...] present?: Neg Delivery (Maternal) (Provider to Complete) ([id number]) Episiotomy: None Perineal lacerations: 1st Repaired?: No Labial laceration: right Repaired?: No Vaginal laceration?: No Cervical laceration?: No Mother's Information Mother: Azul Mcclellan #[id number] Start of Mother's Information IO Blood Loss 03/05/17 1730 - 03/07/17 0052 Mom's I/O Activity End of Mother's Information Mother: Azul Mcclellan #[id number] Delivery - Provider to Complete ([id number]) Delivering clinician: KERI ELIAS Attempted Delivery Types [...] Occiput Anterior DO Kenia Rowan [facility] Attestation: This patient has been seen and evaluated by me, Keri Elias on 03/06/17. I saw and discussed the case with the primary resident the care team. I agree with the findings and plan in this note. I have reviewed today's vital signs, medications, laboratory results. I was present for the entire delivery. Keri Aquino Family Medicine [employer] Plan of Care - Anuja Martins RN [...] wereanswered. Discharge to home today with baby. [employer] Plan of Care - Collin Oh RN [...] Looking forward to discharge to home today. [employer] Plan of Care - Amelia Martinez RN - 03/07/2017 7:50 AM CST Referral made to [facility] for early dc. [employer] Plan of Care - Anna Morgan RN [...] person in room. Continue plan of care. [employer] Plan of Care - Deborah Sparks RN [...] present. Plan: continue with plan of care. [employer] Note - Jose Cummings RN - 03/06/2017 [...] will continue to call for help prn. [employer] Plan of Care - Apoorva Gold RN [...] new family booklet, safe sleep, feeding cues, [place] and pain management. See flow record. Response: Positive attachment behaviors observed with infant. Support persons Yohan present. Plan: continue plan of care. [employer] Provider Notification - Apoorva Gold RN - 03/06/2017 6:36 AM CST 03/06/17 0636 Provider Notification Provider Name/Title MitchellChuyBrittnee Method of Notification Electronic Page Request Evaluate-Remote Notification Reason Medication Request (Tums) Patient is requesting Tums for heartburn. Please order as soon as you can, thanks! [employer] Plan of Care - Apoorva Gold RN - 03/06/2017 6:09 AM CST Patient arrived to [facility] unit via wheelchair at 0330,with belongings, accompanied by spouse/ significant other, with in arms. Received report from Rebecca Regalado at 0300 over the phone and checked bands. Unit and room orientation completd. Call light given and within arms reach; no concerns present atthis time. Continue with plan of care. [employer] Plan of Care - Mary Lindsey RN - 03/06/2017 3:49 AM CST Data: Azul Tellez transferred to [facility] via wheelchair at 0330. Baby transferred via parent'sarms. Action: Receiving unit notified of transfer: Yes. Patient and family notified of room change. Reportgiven to KENNY Guerin at 0300. Belongings sent to receiving unit. Accompanied by Registered Nurse. Oriented patient to surroundings. Call light within reach. ID bands double-checked with receiving RN. Response: Patient tolerated transfer and is stable. [employer] Provider Notification - Mary Lindsey RN - 03/06/2017 2:23 AM CST 03/05/17 4630 Provider Notification Provider Name/Title MDA Method of Notification At Bedside Request Evaluate in Person Notification Reason Other (Comment) (replacing epidural) Pt. Uncomfortable, feels epidural isn't working. MDA in to assess. Epidural fell out. Second one placed. Continue to monitor. [employer] Plan of Care - Mary Lindsey RN [...] No repairs. Pitocinper protocol. Continue pp cares. [employer] Plan of Care - Yasmine Phillips RN [...] in for pt to help with relaxation. [employer] Provider Notification - Yasmine Phillips RN - 03/05/2017 10:44 PM CST 03/05/17 2225 Provider Notification Provider Name/Title MDA Method of Notification Phone Request Evaluate - Remote Notification Reason Status Update Discussed pt status post-epidural placement. Discussed how tape was coming off and placed tape on tokeep site stable. MDA ok with intervention. No further orders. [employer] Provider Notification - Yasmine Phillips RN - 03/05/2017 10:43 PM CST 03/05/17 2239 Provider Notification Provider Name/Title MDA Method of Notification Phone Request Evaluate - Remote Notification Reason Patient Request Discussed pt s/s with provider. No concerns at this time. Will continue to support and update provider as needed. [employer] Provider Notification - Yasmine Phillips RN - 03/05/2017 10:02 PM CST 03/05/17 2200 Provider Notification Provider Name/Title FP Resident Method of Notification In Department Request Evaluate in Person Notification Reason Status Update Strip reviewed intra-department. No further orders or concerns. [employer] Provider Notification - Yasmine Phillips RN - 03/05/2017 9:54 PM CST 03/05/17 2115 Provider Notification Provider Name/Title FP Resident Method of Notification At Bedside Request Evaluate in Person Notification Reason Status Update Strip reviewed at bedside with provider as a LD was seen. No further orders. Variability still moderate. [employer] Plan of Care - Lisa Peralta RN [...] Outcome: No Change Data: [facility] at 1721. Reason for maternal/ assessment [...] ambulatory, oriented to room and call light. [employer] documented in this encounter Plan of Treatment Not on filedocumented as of this encounter Procedures Procedure Name Priority Date/Time Associated Diagnosis Comme nts HEMOGLOBIN Routine 03/07/2017 7:07 AM Results f or this [employer] procedure are i n the results section . PLATELET COUNT STAT 03/05/2017 6:28 PM Results for this [employer] procedure are i n the results section . HEMOGLOBIN STAT 03/05/2017 6:28 PM Results f or this [employer] procedure are i n the results section . ABO AND RH STAT 03/05/2017 6:28 PM Results f or this [employer] procedure are i n the results section . documented in this encounter Results (ABNORMAL) Hemoglobin (03/07/2017 7:07 AM [employer]) P athologist Signature Hemoglobin 9.0 (L) 11.7 - 15.7 03/07/2017 [facility] g/dL 7:24 AM [employer] [facility] Specimen Anatomical Collection Method Collection Time Receive d Time (Source) Location / / Volume Laterality Blood specimen 03/07/2017 7:07 AM 018 7:11 (specimen) [employer] AM [employer] Keri Elias MD LAB - BLOOD ORDERABLES Performing Organization Address City/State/ZIP Code Phon e Number [address] [address] [facility] Platelet count (03/05/2017 6:28 PM [employer]) P athologist Signature Platelet Count 281 150 - 450 03/05/2017 [facility] 10e9/L 6:35 PM [employer] [facility] Specimen Anatomical Collection Method Collection Time Receive d Time (Source) Location / / Volume Laterality Blood specimen 03/05/2017 6:28 PM 018 6:30 (specimen) [employer] PM [employer] Keri Elias MD LAB - BLOOD ORDERABLES Performing Organization Address City/State/ZIP Code Phon e Number [address] [address] [facility] (ABNORMAL) Hemoglobin (03/05/2017 6:28 PM [employer]) P athologist Signature Hemoglobin 10.2 (L) 11.7 - 03/05/2017 [facility] 15.7 g/dL 6:35 PM [employer] [facility] Specimen Anatomical Collection Method Collection Time Receive d Time (Source) Location / / Volume Laterality Blood specimen 03/05/2017 6:28 PM 018 6:30 (specimen) [employer] PM [employer] Keri Elias MD LAB - BLOOD ORDERABLES Performing Organization Address City/State/ZIP Code Phon e Number [address] [address] [facility] ABO and Rh (03/05/2017 6:28 PM [employer]) Patholo gist Method Time Signature ABO O 03/05/2017 [facility] 6:58 PM [employer] [facility] RH(D) Pos [facility] Specimen 03/08/2017 03/05/2017 [facility] Expires 6:39 PM [employer] [facility] Specimen Anatomical Collection Method Collection Time Receive d Time (Source) Location / / Volume Laterality Blood specimen 03/05/2017 6:28 PM 018 6:30 (specimen) [employer] PM [employer] Keri Elias MD LAB - BLOOD BANK TEST ORDER Performing Organization Address City/State/ZIP Code Phon e Number [facility] [address] [place] [address] [facility] documented in this encounter Visit [...] (TYLENOL) tablet 650 Given 03/07/2017 7:21 AM [employer] 650 mg mg 650 mg, Oral, EVERY 4 HOURS PRN, mild pain, fever, greater than or equal to 38?? C /100.4?? F (oral) or 38.5?? C/ 101.4?? F (core)., Starting on Mon03/06/17 at 0129, Maximum acetaminophen dose from all sources = 75 mg/kg/day not to exceed 4 grams/day. Given 03/06/2017 11:45 PM [employer] 650 mg Given 03/06/2017 7:28 PM [employer] 650 mg calcium carbonate (TUMS) chewable tablet 500 Given 10:10 PM [employer] 500 mg mg 500 mg, Oral, DAILY PRN, heartburn, Starting on Mon03/05/17 at 2147 calcium carbonate (TUMS) chewable tablet 500 mg 500 mg, Oral, DAILY PRN, heartburn, Starting on Mon at 0638 diphenhydrAMINE (BENADRYL) injection 25 mg Given 03/06/2017 4:10 AM [employer] 25 mg 25 mg, Intravenous, EVERY 6 HOURS PRN, itching, sleep, anxiety, Administer over 1-2 Minutes, Starting on Mon03/06/17 at 0336, For ordered doses up to 50 mg, give IV Push undiluted. Give each 25mg over a minimum of 1 minute. Extend in non-emergency fentaNYL (PF) (SUBLIMAZE) injection 50-100 Given 03/05/2017 7:33 PM [employer] 50 mcg mcg 50-100 mcg, Intravenous, EVERY [...] tablet 800 mg Given 03/06/2017 1:27 AM [employer] 800 mg 800 mg, Oral, ONCE PRN, moderate pain (4-6), mild-moderate pain, Starting on 03/05/17 at 1810, For 1 dose, Available for administration after delivery. May give with acetaminophen. ibuprofen (ADVIL/MOTRIN) tablet 800 mg Given 03/07/2017 7:21 AM [employer] 800 mg 800 mg, Oral, EVERY 6 HOURS PRN, other, cramping, Starting on 03/06/17 at 0129, Max dose: 3200 mg/day Given 03/06/2017 8:42 PM [employer] 800 mg Given 03/06/2017 2:27 PM [employer] 800 mg lactated ringers BOLUS 1,000 mL New Bag 03/05/2017 8:37 PM [employer] 1,000 mLs Intravenous, 1,000 mL, ONCE PRN, IF patient to have epidural or intrathecal narcotics and NOT pre-eclamptic, Starting on Mon03/05/17 at 1810, For 1 dose, IV bolus 15-30 min prior to epidural, then IV fluids per labor orders lactated ringers BOLUS 500 mL New Bag 03/05/2017 6:17 PM [employer] 500 mLs Intravenous, 500 mL, ONCE PRN, per policy for intrauterine resuscitation or uterine tachysystole, Starting on Mon03/05/17 at 1810, For 1 dose lactated ringers infusion New Bag 03/05/2017 11:53 PM [employer] 125 mL/hr at 125 mL/hr, Intravenous, CONTINUOUS, Starting on Mon03/05/17 at 1830, Until Mon03/06/17 at 0129 Rate/Dose Verify 03/05/2017 8:27 PM [employer] 125 mL/hr New 03/05/2017 7:20 PM [employer] 125 mL/hr naphazoline-pheniramine (OPCON-A/VISINE A/NAPHCON A) ophthalmic solution 1 drop 1 drop, Ophthalmic, 4 TIMES DAILY PRN, d ry eyes, Starting on Mon03/06/17 at 0358 nitrous oxide/oxygen 50/50 blend Given 03/05/2017 6:45 PM [employer] Inhalation, CONTINUOUS PRN, episodic analgesia, Starting on [...] units in New Bag 03/06/2017 12:54 AM [employer] 340 mL/hr 340 mL/hr 500 mL 0.9% [...] mL/hr units in 500 mL 0.9% NaCl [employer] infusion 100 mL/hr, Intravenous, CONTINUOUS, Starting on [...] for loose stools. Given 03/06/2017 7:41 AM [employer] 1 tablet senna-docusate (SENOKOT-S;PERICOLACE) 8. 6-50 MG per tablet 2 tablet 2 tablet, Oral, 2 TIMES DAILY PRN, const ipation, Starting on Mon03/06/17 at 0129, Hold for loose stools. documented in this encounter Active and Recently Administered Medications Times are shown in [employer]. Scheduled Medication Order 03/05/2017 03/06/2017 03/07/2017 fentaNYL (SUBLIMAZE) 2 mcg/mL, bupivacai ne (MARCAINE) 0.125% in NS premix for PCEA (CANCELED) 2118 (New Bag by Other Clinician - Provider: Yasmine ulloa, KENNY) 104 (Stopped - Provider: Mary Lindsey RN) EPIDURAL, MILITARY LOGISTICS SPECIALIST, First dose on Mon03/05/17 at 2045, Absolutely [...] RN) 50-100 mcg, Intravenous, EVERY 1 HOUR MD N, Starting 03/05/17 at 1848, other, desired [...] stools.
documented in this encounter Care Teams Test Technician Relationship Specialty Start Date End Date Keri Elias PCP - General Family Practice 03/12/15 9 MD Ira Glez David Wayne, MD Orthopedics 07/09/[address] [place] [id number] Astrid Rios PA-C Physician Mason Foreman/Superintendant Physician Mason Foreman/Superintendant - 07/09/14 Surgical documented as of this encounter
--- OUTSIDE RECORDS SUMMARY | 2022-01-07 14:39 | XMS_ITS | Encounter Summary ---
:1980 Author Organization [facility] Address [address] [facility] [place] [address] Care Team Providers Name Role Phone Bebeto Roth MD Unavailable Astrid Rios PA-C Unavailable Keri Elias MD Primary Care Provider Unavailable Encounter Details Date Type Department Care Team Description 12/16/[address] [facility] [address] [place] [address], [address] [place], [place] [address] Social History Tobacco Use Types [...] on filedocumented in this encounter Care Teams Microbiology Supervisor Relationship Specialty Start Date End Date Keri Elias PCP - General Family Practice 03/12/15 9 MD Ira Glez David Wayne, MD Orthopedics 07/09/14 [facility] [address] [address] Astrid Rios PA-C Physician Hr Administrative Assistant Physician Hr Administrative Assistant - 07/09/14 Surgical documented as of this encounter
--- OUTSIDE RECORDS SUMMARY | 2022-01-07 14:39 | XMS_ITS | Encounter Summary ---
:1980 Author Organization [facility] Address [address] [place] [address]. [place] [address] Care Team Providers Name Role Phone Bebeto Roth MD Unavailable Astrid Rios PA-C Unavailable Keri Elias MD Primary Care Provider Unavailable Reason for Visit Reason Comments Rule Out Labor Auth/Cert Specialty Diagnoses / Procedures Referred By Contact Refer red To Contact Obstetrics Diagnoses Maternity*VINCENT 03/08/2017/Labor Encounter for triage in patient Labor and delivery, indication for care (normal spontaneous vaginal delivery) [address] [address] Phone: Referral ID Status Reason Start Date Expiration Date Visits Requ ested Visits Authorized [id number] 1 1 Encounter Details Date Type Department Care Team Description 03/05/2017 Hospital Encounter [facility] Keri Elias Frequent UTI Birthplace MD [place] [address] [place] [address] Social History Tobacco Use Types Packs/Day Years Used Date Smoking Tobacco: Never Smokeless Tobacco: Never Alcohol Use Standard Drinks/Week Comments No 0 (1 standard drink = 0.6 oz pure alcoho l) Sex Assigned at Date Recorded Not on file documented as of this encounter Last Filed Vital Signs Vital Sign Reading Time Taken Comments Blood Pressure 121/75 03/05/2017 9:15 AM SOLAR INSTALLER TECHNICIAN Pulse 107 03/05/2017 9:15 AM SOLAR INSTALLER TECHNICIAN Temperature 37.2 ??C (99 ??F) 03/05/2017 9:15 AM SOLAR INSTALLER TECHNICIAN Respiratory Rate 16 03/05/2017 9:15 AM SOLAR INSTALLER TECHNICIAN Oxygen Saturation - - Inhaled Oxygen Concentration - - Weight 79.9 kg (176 lb 3.2 oz) 03/05/2017 9:15 AM SOLAR INSTALLER TECHNICIAN Height - - Body Mass Index 31.21 [...] felt your baby move all day. ?? [id number] [employer]. [address] [place] [address]. All rights reserved. This information is not intended as a substitute for professional medical care. Always follow your healthcare professional's instructions. This information has been modified by your health care provider with permission from the publisher. R INSTALLER TECHNICIAN documented in this encounter Medications at Time [...] Abnormal maternal glucose tolerance, antepartum fluticasone (FLONASE) [place] 1-2 sprays into 16 g 3 07/05/2017 [...] Shreya. Outpatient w no procedure - Charge. R INSTALLER TECHNICIAN Rivka Cantu RN - 03/05/2017 9:52 AM [...] Olson to SVE and review tracing. VSS. R INSTALLER TECHNICIAN documented in this encounter H&P Notes Keri Elias MD - 03/05/2017 9:30 AM CST Images from the original note were not included. [facility] Ob Admit /Triage Note Azul Tellez Age: [age] year old Date of : 1980 Date of Admission: 03/05/2017 9:30 AM Date of service: 03/05/2017. History of Present Illness (Resident / Clinician): Azul Tellez is a patient of Keri Lyon and Dr. Melisa Maher from [facility]. She is a 36 year old who [...] Negative Negative for C. trachomatis rRNA by director of patient financial services mediated amplification. A negative result by director of patient financial services mediated amplification does not preclude the presence of C. trachomatis infection because results are dependent on proper and adequate collection, absence of inhibitors, and sufficient rRNA to be detected. [facility] 08/05/2016 Negative Negative for N. gonorrhoeae rRNA by director of patient financial services mediated amplification. A negative result by director of patient financial services mediated amplification does not preclude the presence [...] to Encounter: fluticasone (FLONASE) 50 MCG/ACT spray [place] 1-2 sprays into both nostrils daily amoxicillin [...] wishes. DO Kenia Rowanlaila Family Medicine [facility] Attestation: This patient has been seen and evaluated by me, Keri Elias on 03/05/2017. I saw and discussed the case with the primary resident the care team. I agree with the findings and plan in this note. I have reviewed today's vital signs, medications, laboratory results. Keri Aquino's Family Medicine R INSTALLER TECHNICIAN documented in this encounter Plan of Treatment Not on filedocumented as of this encounter Visit Diagnoses Diagnosis Frequent UTI Urinary tract infection, site not specif ied Encounter for triage in patient documented in this encounter Care Teams [place] Attendant Relationship Specialty Start Date End Date Keri Elias PCP - General Family Practice 03/12/15 9 MD Ira Glez David Wayne, MD Orthopedics 07/09/[address] [place], [place] [id number] [place] [address] Astrid Rios PA-C Physician Central Office Equipment Engineer Physician Central Office Equipment Engineer - 07/09/14 Surgical documented as of this encounter
--- OUTSIDE RECORDS SUMMARY | 2022-01-07 14:39 | XMS_ITS | Encounter Summary ---
:1980 Author Organization [place] Address [address] [facility] [place] [place] [address] Care Team Providers Name Role Phone Bebeto Roth MD Unavailable Astrid Rios PA-C Unavailable Keri Elias MD Primary Care Provider Unavailable Francisco Metz MD Primary Care Provider [phone] Francisco Metz MD Unavailable [phone] Kenton Katz MD Unavailable Unavailable Karen Veliz DO Primary Care Provider Kenton Katz MD Unavailable Unavailable Karen Veliz DO Unavailable Reason for Visit Reason Onset Date Comments Outreach 03/13/2017 Rtn no show #2 Encounter Details Date Type Department Care Team Description 03/13/2017 Telephone [facility] Keri Elias (Rtn no show Medicine Clinic MD [place] #2 ) [address], [address] [place], [place] [address] Social History Tobacco Use Types Packs/Day Years [...] some of your recently scheduled appointments. At [facility] we have a new no show policy, where if you miss too many appointments within 1 year, we may not be able to continue to schedule you. If you are unable to make your scheduled appointments, please call the clinic to cancel prior to your appointment time. CREAM CHEF documented in this encounter Plan of Treatment Not on filedocumented as of this encounter Visit Diagnoses Not on filedocumented in this encounter Care Teams Elocution Teacher Relationship Specialty Start Date End Date Keri Elias PCP - General Family Practice 03/12/15 9 MD Isaías Glez Mitchell PCP - General Family Practice 11/14/18 04/02/20 MD Stevie Karen Veliz, PCP - General Family Medicine 04/03/202019 [place] [address] Bebeto Roth MD Orthopedics 07/09/14 [facility] [address] [place] [address] Astrid Rios PA-C Physician Risk Control Representative Physician Risk Control Representative - 07/09/14 Surgical Francisco Metz Assigned PCP 07/04/19 02/01/20 MD Stevie [address] [place] [address] Kenton Katz Assigned PCP 02/02/20 08/27/20 MD Feliberto NO INFO AVAILABLE Kenton Katz Assigned Endocrinology 08/28/20 07/23/21 MD Feliberto Provider NO INFO AVAILABLE Karen Veliz, Assigned PCP 08/28/202019 [place] [address] documented as of this encounter
--- OUTSIDE RECORDS SUMMARY | 2022-01-07 14:39 | XMS_ITS | Encounter Summary ---
:1980 Author Organization [place] Address [facility] [place] [address] Care Team Providers Name Role Phone Bebeto Roth MD Unavailable Astrid Rios PA-C Unavailable Keri Elias MD Primary Care Provider Unavailable Reason for Visit Diagnostic Imaging XR - Closed Specialty Diagnoses / Procedures Referred By Contact Refer red To Contact Diagnoses Pain Bebeto Roth MD Procedures XR Leg Length Evaluation [address] [facility] [address] [place], [place] [address] Referral ID Status Reason Start Date Expiration Date Visits Requ ested Visits Authorized [id number] Closed 03/30/2017 03/30/2018 1 1 Encounter Details Date Type Department Care Team Description 03/30/2017 Radiant Appointment [facility] Chan Roth Pain Farhanaay MD Devan 9 [facility] [address] [place] [address] [phone] Social History Tobacco Use Types Packs/Day Years [...] 12:42 PM Pain Results for this EVALUATION PERSONNEL ADMINISTRATOR procedure are i n the results section. documented in this encounter Results XR Leg Length Evaluation (03/30/2017 12:42 PM PERSONNEL ADMINISTRATOR) Anatomical Region Laterality Modality Neck Computed Radiography Specimen (Source) Anatomical Location Collection Method / Collectio n Time Received Time / Laterality Volume Impressions 03/30/2017 1:17 PM PERSONNEL ADMINISTRATOR Impression: 1. Mild right convexed curvature of the main thoracic spine. 2. No ??global sagittal imbalance. 3. Weight bearing axis as detailed above . 4. Stable posterior instrumented fusion from T10 to L3 ALISHA POPE MD Narrative 03/30/2017 1:17 PM PERSONNEL ADMINISTRATOR EXAMINATION: XR SPINE COMPLETE 2 VW, XR [...] No substantial global coronal imbalance. Sagittal Vertical Villalba (A vertical line drawn from the center [...] No substantial global coronal imbalance. Sagittal Vertical Villalba (A vertical line drawn from the center [...] pain documented in this encounter Care Teams Cable Tender Relationship Specialty Start Date End Date Keri Elias PCP - General Family Practice 03/12/15 9 MD Ira Glez David Wayne, MD Orthopedics 07/09/[address] [facility] [place], [place] [address] [place] [address] Astrid Rios PA-C Physician Transition Teacher Physician Transition Teacher - 07/09/14 Surgical documented as of this encounter
--- OUTSIDE RECORDS SUMMARY | 2022-01-07 14:39 | XMS_ITS | Encounter Summary ---
:1980 Author Organization [place] Address [facility] [place] [address] Care Team Providers Name Role Phone Bebeto Roth MD Unavailable Astrid Rios PA-C Unavailable Keri Elias MD Primary Care Provider Unavailable Reason for Referral Diagnostic Imaging XR - Closed Specialty Diagnoses / Procedures Referred By Contact Refer red To Contact Diagnoses S/P spinal fusion Bebeto Roth MD Procedures XR Spine Complete 2 Views [address] [place], [place] [address] Referral ID Status Reason Start Date Expiration Date Visits Requ ested Visits Authorized [id number] Closed 03/27/2017 03/27/2018 1 1 RANCE ACCOUNT SPECIALIST Encounter Details Date Type Department Care Team Description 03/27/2017 Orders Only [facility] Orthopaedic Bebeto Roth S/P spi nal fusion Clinic MD Devan (Primary Dx) 9 [facility] [address] [place] [address] [phone] Social History Tobacco Use Types Packs/Day Years Used Date Smoking Tobacco: Never Smokeless Tobacco: Never Alcohol Use Standard Drinks/Week Comments No 0 (1 standard drink = 0.6 oz pure alcoho l) Sex Assigned at Date Recorded Not on file documented as of this encounter Plan of Treatment Not on filedocumented as of this encounter Results XR Spine Complete 2 Views (03/30/2017 12:40 PM INSURANCE ACCOUNT SPECIALIST) Anatomical Region Laterality Modality Spine Computed Radiography Specimen (Source) Anatomical Location Collection Method / Collectio n Time Received Time / Laterality Volume Impressions 03/30/2017 1:17 PM INSURANCE ACCOUNT SPECIALIST Impression: 1. Mild right convexed curvature of the main thoracic spine. 2. No ??global sagittal imbalance. 3. Weight bearing axis as detailed above . 4. Stable posterior instrumented fusion from T10 to L3 ALISHA POPE MD Narrative 03/30/2017 1:17 PM INSURANCE ACCOUNT SPECIALIST EXAMINATION: XR SPINE COMPLETE 2 VW, XR [...] No substantial global coronal imbalance. Sagittal Vertical [place] (A vertical line drawn from the center [...] No substantial global coronal imbalance. Sagittal Vertical [place] (A vertical line drawn from the center [...] status documented in this encounter Care Teams Sewing Pattern Layout Technician Relationship Specialty Start Date End Date Keri Elias PCP - General Family Practice 03/12/15 9 MD Ira Glez, Bebeto [place] MD Orthopedics 07/09/14 [facility] [place] [address] [id number] [place] [address] Astrid Rios PA-C Physician Dealer Sales Rep Physician Dealer Sales Rep - 07/09/14 Surgical documented as of this encounter
--- OUTSIDE RECORDS SUMMARY | 2022-01-07 14:39 | XMS_ITS | Encounter Summary ---
:1980 Author Organization [place] Address [address] [facility] [place] [address] Care Team Providers Name Role Phone Bebeto Roth MD Unavailable Astrid Rios PA-C Unavailable Keri Elias MD Primary Care Provider Unavailable Reason for Visit Reason Comments Care Check to see if fetus is tur teddy correctly Encounter Details Date Type Department Care Team Description 02/14/2017 Office Visit Narda Mcleod Keri Elias of [facility] Clinic MD [place] risk , [address], [address] mauricio (Primary [address] Dx) [place], [place] [address] Social History Tobacco Use Types Packs/Day Years Used Date Smoking Tobacco: Never Smokeless Tobacco: Never Alcohol Use Standard Drinks/Week Comments No 0 (1 standard drink = 0.6 oz pure alcoho l) Sex Assigned at Date Recorded Not on file documented as of this encounter Last Filed Vital Signs Vital Sign Reading Time Taken Comments Blood Pressure 135/83 02/14/2017 8:05 AM ROPE RIDER Pulse 109 02/14/2017 8:05 AM ROPE RIDER Temperature 36.4 ??C (97.6 ??F) 02/14/2017 8:05 AM ROPE RIDER Respiratory Rate - - Oxygen Saturation 100% 02/14/2017 8:05 AM ROPE RIDER Inhaled Oxygen Concentration - - Weight 79.7 kg (175 lb 12.8 oz) 02/14/2017 8:05 AM ROPE RIDER Height - - Body Mass Index 31.14 [...] with the final plan. Keri Elias MD RIDER documented in this encounter Plan of Treatment Not on filedocumented as of this encounter Procedures Procedure Name Priority Date/Time Associated Diagnosis Comme nts GROUP B STREP PCR Routine 02/14/2017 1:07 PM Supervision of hi gh Results for this ROPE RIDER risk , procedure ar e in antepartum the results section. documented in this encounter Results Group B strep PCR (GBS) (02/14/2017 1:07 PM ROPE RIDER) [facility] Method Time Signature Group B Strep Vaginal 02/14/2017 [facility] PCR Spec [place] Rectal 9:10 AM ROPE RIDER [facility] Group B Strep Negative NEG^Negat 02/15/2017 [facility] franco 11:32 AM ROPE RIDER [facility] Comment: No GBS DNA detected, presumed negative f or GBS or number of bacteria may be below the limit of detection of the assa y. Assay performed on incubated broth cultu re of specimen using Restlet real-time PCR. Specimen Anatomical Collection Method Collection Time Receive d Time (Source) Location / / Volume Laterality Vaginal Rectal 02/14/2017 1:07 PM 018 1:12 ROPE RIDER PM ROPE RIDER Keri Elias MD LAB - MICRO GENERAL ORDERABL Performing Organization Address City/State/ZIP Code Phon e Number [id number] [place] [address] East documented in this encounter Visit Diagnoses Diagnosis Supervision of high risk , ante - Primary documented in this encounter Care Teams Transaction Advisory Services Manager Relationship Specialty Start Date End Date Keri Elias PCP - General Family Practice 03/12/15 MD Ira Abrams David Wayne, MD Orthopedics 07/09/[address] [place], [place] [address] [place] [address] Astrid Rios PA-C Physician Vice President Of Business Development Physician Vice President Of Business Development - 07/09/14 Surgical documented as of this encounter
--- OUTSIDE RECORDS SUMMARY | 2022-01-07 14:39 | XMS_ITS | Encounter Summary ---
:1980 Author Organization [place] Address [address] [facility] [place] [address] Care Team Providers Name Role Phone Bebeto Roth MD Unavailable Astrid Rios PA-C Unavailable Keri Elias MD Primary Care Provider Unavailable Reason for Visit Reason Comments Care Encounter Details Date Type Department Care Team Description 02/21/2017 Office Visit Narda Mcleod Keri Elias of [facility] MD [place] risk , [address], [address] mauricio (Primary [address] Dx) [place], [place] [address] Social History Tobacco Use Types Packs/Day Years Used Date Smoking Tobacco: Never Smokeless Tobacco: Never Alcohol Use Standard Drinks/Week Comments No 0 (1 standard drink = 0.6 oz pure alcoho l) Sex Assigned at Date Recorded Not on file documented as of this encounter Last Filed Vital Signs Vital Sign Reading Time Taken Comments Blood Pressure 114/78 02/21/2017 7:51 AM BREWERY REPRESENTATIVE Pulse 93 02/21/2017 7:51 AM BREWERY REPRESENTATIVE Temperature 36.9 ??C (98.5 ??F) 02/21/2017 7:51 AM BREWERY REPRESENTATIVE Respiratory Rate 18 02/21/2017 7:51 AM BREWERY REPRESENTATIVE Oxygen Saturation 99% 02/21/2017 7:51 AM BREWERY REPRESENTATIVE Inhaled Oxygen Concentration - - Weight 80.3 kg (177 lb) 02/21/2017 7:51 AM BREWERY REPRESENTATIVE Height - - Body Mass Index 31.35 [...] with the final plan. Keri Elias MD ERY REPRESENTATIVE documented in this encounter Plan of Treatment Not on filedocumented as of this encounter Visit Diagnoses Diagnosis Supervision of high risk , ante - Primary documented in this encounter Care Teams Branch Store Manager Relationship Specialty Start Date End Date Keri Elias PCP - General Family Practice 03/12/15 9 MD Ira Glez David Wayne, MD Orthopedics 07/09/[address] [place] [address] Astrid Rios PA-C Physician Vegetable Cutter Physician Vegetable Cutter - 07/09/14 Surgical documented as of this encounter
--- OUTSIDE RECORDS SUMMARY | 2022-01-07 14:39 | XMS_ITS | Encounter Summary ---
:1980 Author Organization [place] Address [address] [facility] [place] [address] Care Team Providers Name Role Phone Bebeto Roth MD Unavailable Astrid Rios PA-C Unavailable Keri Elias MD Primary Care Provider Unavailable Reason for Visit Reason Onset Date Comments Call To Schedule Appointment 03/07/2017 PDP-MOM Encounter Details Date Type Department Care Team Description 03/07/2017 Telephone [facility] Keri Elias Call To Schedule Medicine Clinic MD [place] Appointment (PDP-MOM) [facility] [address]. [address] [place] [address], [address] [place], [place] [address] Social History Tobacco Use Types Packs/Day Years Used Date Smoking Tobacco: Never Smokeless Tobacco: Never Alcohol Use Standard Drinks/Week Comments No 0 (1 standard drink = 0.6 oz pure alcoho l) Sex Assigned at Date Recorded Not on file documented as of this encounter Miscellaneous Notes Telephone Encounter - Tala Velasco CMA - 03/08/2017 11:27 AM CST Patient scheduled 03/23/17 and 04/12/17. INALIST Telephone Encounter - Clarita Gunderson RN - 03/07/2017 3:47 PM CST Please call patient to schedule 2 week and 6 week visits: Date of Delivery: 03/06/17 Date of Discharge: 03/07/17 Please document all calls. Close encounter after appointment is scheduled or after last attempt has been made Clarita Gunderson, RN INALIST documented in this encounter Plan of Treatment Not on filedocumented as of this encounter Visit Diagnoses Not on filedocumented in this encounter Care Teams Metals Analyst Relationship Specialty Start Date End Date Keri Elias PCP - General Family Practice 03/12/15 9 MD Ira Glez David Wayne, MD Orthopedics 07/09/[address] [facility] [place] [address] Astrid Rios PA-C Physician Security Project Manager Physician Security Project Manager - 07/09/14 Surgical documented as of this encounter
--- OUTSIDE RECORDS SUMMARY | 2022-01-07 14:39 | XMS_ITS | Encounter Summary ---
:1980 Author Organization [place] Address [address] [facility] [place] [address] Care Team Providers Name Role Phone Bebeto Roth MD Unavailable Astrid Rios PA-C Unavailable Keri Elias MD Primary Care Provider Unavailable Francisco Metz MD Primary Care Provider [phone] Francisco Metz MD Unavailable [phone] Kenton Katz MD Unavailable Unavailable Karen Veliz DO Primary Care Provider Kenton Katz MD Unavailable Unavailable Karen Veliz DO Unavailable Reason for Visit Reason Onset Date Comments No Show 03/27/2017 RTN No Show #3 Encounter Details Date Type Department Care Team Description 03/27/2017 Telephone [facility] Keri Elias No Show (RTN No Show Medicine Clinic MD [place] #3) [address], [address] [place], [place] [address] Social History Tobacco Use Types Packs/Day Years [...] the virtual schedule to meet with you. R CHECKER PACKER PROCESSER documented in this encounter Plan of Treatment Not on filedocumented as of this encounter Visit Diagnoses Not on filedocumented in this encounter Care Teams Bilingual Teacher Assistant Relationship Specialty Start Date End Date Keri Elias PCP - General Family Practice 03/12/15 9 MD Isaías Glez Mitchell PCP - General Family Practice 11/14/18 04/02/20 MD Stevie Karen Veliz, PCP - General Family Medicine 04/03/202019 [place] [address] Bebeto Roth MD Orthopedics 07/09/14 [facility] [place] [address] Astrid Rios PA-C Physician Financial Dealers Physician Financial Dealers - 07/09/14 Surgical Francisco Metz Assigned PCP 07/04/19 02/01/20 MD Stevie [place] [id number] [place] [address] [place] [address] Kenton Katz Assigned PCP 02/02/20 08/27/20 MD Feliberto NO INFO AVAILABLE Kenton Katz Assigned Endocrinology 08/28/20 07/23/21 MD Feliberto Provider NO INFO AVAILABLE Karen Veliz, Assigned PCP 08/28/202019 [place] [address] documented as of this encounter
--- OUTSIDE RECORDS SUMMARY | 2022-01-07 14:39 | XMS_ITS | Encounter Summary ---
:1980 Author Organization [place] Address [facility] [place] [address] Care Team Providers Name Role Phone Bebeto Roth MD Unavailable Astrid Rios PA-C Unavailable Keri Elias MD Primary Care Provider Unavailable Reason for Visit Reason Comments RECHECK 3 weeks post-, pt here to follow up in mid back fusion, s/p PSF T10-L3 10/12/09 Encounter Details Date Type Department Care Team Description 03/30/2017 Office Visit [facility] of thoracolumbar region (Primary Dx); Clinic MD Devan S/P spinal fusion [address] [place] [address] [address] [place] [address] [phone] Social History Tobacco Use Types Packs/Day Years [...] 71.7 kg (158 lb) 03/30/2017 12:31 PM TECHNICAL SERVICES COORDINATOR Height 160.7 cm (5' 3.25) 03/30/2017 12:31 PM TECHNICAL SERVICES COORDINATOR Body Mass Index 27.77 03/30/2017 12:31 PM TECHNICAL SERVICES COORDINATOR documented in this encounter Progress Notes Bebeto [...] No Joint stiffness: No Bone fracture: No NICAL SERVICES COORDINATOR documented in this encounter Nursing Notes Kathleen Trotter CMA - 03/30/2017 12:30 PM CST Reason For Visit: Chief Complaint Patient presents with ??? RECHECK 3 weeks post-, pt here to follow up in mid back fusion, s/p PSF T10-L3 10/12/09 Primary MD: Keri Elias MD: Self Referred Hot Saw Operator? 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 Yes. 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
--- OUTSIDE RECORDS SUMMARY | 2022-01-07 14:39 | XMS_ITS | Encounter Summary ---
:1980 Author Organization [place] Address [address] [facility] [place] [address] Care Team Providers Name Role Phone Bebeto [...] glucose tolerance, antepartum; [address] test positive [place] [phone] Social History Tobacco Use Types Packs/Day Years [...] Aerobic Bacterial - Urinalysis, Micro If (UA) ([facility]) 3. Abnormal maternal glucose tolerance, antepartum Pt [...] Value Ref Test Analysis Performed At [facility] Range Method Time Signature Specimen Midstream Urine INFECTIOUS Description DISEASE DIAGNOSTIC LABORATORY Special Specimen 12/14/2016 [facility] received in 5:38 PM CDT [facility] preservative [facility] Culture Micro 50,000 to 100,000 colonies/mL [...] Code Phon e Number INFECTIOUS DISEASES [address] [place] [address] DIAGNOSTIC LABORATORY, [facility] INFECTIOUS DISEASE [address] [place] [address], [facility] DIAGNOSTIC LABORATORY [address] [address], [facility] Anti Treponema (12/14/2016 1:01 PM CDT) athologist Signature Treponema Negative NEG^Negati 12/15/2016 [facility] 9:44 AM CDT CLINICS Antibody [place] Specimen Anatomical Collection Method Collection Time Receive d Time (Source) Location / / Volume Laterality Blood specimen VENOUS BLOOD / 12/14/2016 1:01 PM 12/14 1:06 (specimen) Unknown CDT PM CDT Keri Elias MD LAB - BLOOD ORDERABLES Performing Organization Address City/[facility]/ZIP Code Phon e Number [facility] [place] [address] [place] [address] 275 (ABNORMAL) Hemoglobin (HGB) ([facility]) (12/14/2016 9:32 AM CDT) athologist [facility] Hemoglobin 9.3 (L) 11.7 - 15.7 [facility] g/dL MEDICINE [facility] Specimen (Source) Anatomical Collection Method Collection Time Re ceived Time Location / / Volume Laterality Blood specimen VENOUS BLOOD / 12/14/2016 9:32 AM (specimen) Unknown CDT Keri Elias MD LAB - LAB[facility] Performing Organization Address City/[facility]/ZIP Code Phon e Number [facility] MEDICINE [address] [place], [place] [address] [facility] (ABNORMAL) Urinalysis, Micro If (UA) ([facility]) (12/14/2016 9:32 AM CDT) [facility] Method Time Signature Specific [place] 1.010 1.005 - [facility] Urine 1.030 FAMILY MEDICINE [facility] pH Urine 6.0 4.5 - 8.0 [facility] Leukocyte 3+ (A) NEGATIVE [place] Esterase UR [facility] Nitrite Urine Positive (A) NEGATIVE [facility] Protein UR 2+ (A) NEGATIVE [facility] Glucose Urine Trace (A) NEGATIVE [facility] Ketones Urine Trace (A) NEGATIVE [facility] Urobilinogen 2.0 E.U./dL 0.2 E.U./dL [facility] mg/dL (A) FAMILY MEDICINE [facility] Bilirubin UR 1+ (A) NEGATIVE [facility] Blood UR 2+ (A) NEGATIVE [facility] Specimen Anatomical Collection Method Collection Time Receive d Time (Source) Location / / Volume Laterality Urine specimen 12/14/2016 9:32 AM 017 9:32 (specimen) CDT AM CDT Keri Elias MD LAB - LABDAQ Performing Organization Address City/[facility] Code Phon e Number [facility] [address] [place] [phone] [facility] (ABNORMAL) Glucose Challenge 1 Hr ([facility]) (12/14/2016 9:32 AM CDT) P athologist Signature Glu Gest 165 (H) 0 - [address] [facility] FAMILY Screen 1hr 50g MEDICINE [facility] Specimen (Source) Anatomical Collection Method Collection Time Re ceived Time Location / / Volume Laterality Blood specimen VENOUS BLOOD / 12/14/2016 9:32 AM (specimen) Unknown CDT Keri Elias MD LAB - LABDAQ Performing Organization Address City/State/[facility] Phon e Number [facility] [address] [place] [address] [facility] documented in this encounter Visit Diagnoses Diagnosis Supervision of high risk , ante - Primary Dysuria Abnormal maternal glucose tolerance, ant epartum test positive examination or test, positive result documented in this encounter Care Teams Tying In Machine Operator Relationship Specialty Start Date End Date Keri Elias PCP - General Family Practice 03/12/15 MD Ira Abrams, Bebeto Hartman MD Orthopedics 07/09/14 [facility] [place] [id number] [place] [address] Astrid Rios PA-C Physician Cellophane Press Operator Physician Cellophane Press Operator - 07/09/14 Surgical documented as of this encounter
--- OUTSIDE RECORDS SUMMARY | 2022-01-07 14:39 | XMS_ITS | Encounter Summary ---
:1980 Author Organization [place] Address [address] [facility] [place] [address] Care Team Providers Name Role Phone Bebeto Roth MD Unavailable Astrid Rios PA-C Unavailable Keri Elias MD Primary Care Provider Unavailable Reason for Visit Reason Comments Care BALA Refill Request Flonase Encounter Details Date Type Department Care Team Description 12/28/2016 Office Visit Narda Mcleod Jada, Vaginal itch ing (Primary Dx); Medicine Clinic Keri Gelz MD Environmental allergies; [address] [place] [address] [place] [address] Social History Tobacco Use Types Packs/Day Years Used Date Smoking Tobacco: Never Smokeless Tobacco: Never Alcohol Use Standard Drinks/Week Comments No 0 (1 standard drink = 0.6 oz pure alcoho l) Sex Assigned at Date Recorded Not on file documented as of this encounter Last Filed Vital Signs Vital Sign Reading Time Taken Comments Blood Pressure 117/79 12/28/2016 8:13 AM ZOOLOGY PROFESSOR Pulse 106 12/28/2016 8:13 AM ZOOLOGY PROFESSOR Temperature 36.9 ??C (98.5 ??F) 12/28/2016 8:13 AM ZOOLOGY PROFESSOR Respiratory Rate 20 12/28/2016 8:13 AM ZOOLOGY PROFESSOR Oxygen Saturation 98% 12/28/2016 8:13 AM ZOOLOGY PROFESSOR Inhaled Oxygen Concentration - - Weight 79.2 kg (174 lb 9.6 oz) 12/28/2016 8:13 AM ZOOLOGY PROFESSOR Height - - Body Mass Index 30.93 [...] Refilled - fluticasone (FLONASE) 50 MCG/ACT spray; [place] 1-2 sprays into both nostrils daily Dispense: [...] with the final plan. Keri Elias MD OGY PROFESSOR documented in this encounter Plan of Treatment Not on filedocumented as of this encounter Visit Diagnoses Diagnosis Vaginal itching - Primary Pruritus of genital organs Environmental allergies Allergic rhinitis, cause unspecified Frequent UTI Urinary tract infection, site not specif ied documented in this encounter Care Teams Brownell Operator Relationship Specialty Start Date End Date Keri Elias PCP - General Family Practice 03/12/15 9 MD Ira Glez, Bebeto Hartman MD Orthopedics 07/09/14 [facility] [address] [address] Astrid Rios PA-C Physician Bulb Assembler Physician Bulb Assembler - 07/09/14 Surgical documented as of this encounter
--- OUTSIDE RECORDS SUMMARY | 2022-01-07 14:39 | XMS_ITS | Encounter Summary ---
:1980 Author Organization [place] Address [facility] [place] [address] Care Team Providers Name Role Phone Bebeto Roth MD Unavailable Astrid Rios PA-C Unavailable Keri Elias MD Primary Care Provider Unavailable Reason for Visit Reason Comments Care BALA Encounter Details Date Type Department Care Team Description 01/10/2017 Office Visit [facility] Keri Elias for condition (Primary Dx); Medicine Clinic MD [place] Recurrent UTI [address] [place] [address], [address] [place], [place] [address] Social History Tobacco Use Types Packs/Day Years Used Date Smoking Tobacco: Never Smokeless Tobacco: Never Alcohol Use Standard Drinks/Week Comments No 0 (1 standard drink = 0.6 oz pure alcoho l) Sex Assigned at Date Recorded Not on file documented as of this encounter Last Filed Vital Signs Vital Sign Reading Time Taken Comments Blood Pressure 108/68 01/10/2017 10:06 AM DRY ROOM ATTENDANT Pulse 114 01/10/2017 10:06 AM DRY ROOM ATTENDANT Temperature 36.7 ??C (98.1 ??F) 01/10/2017 10:06 AM DRY ROOM ATTENDANT Respiratory Rate 18 01/10/2017 10:06 AM DRY ROOM ATTENDANT Oxygen Saturation 99% 01/10/2017 10:06 AM DRY ROOM ATTENDANT Inhaled Oxygen Concentration - - Weight 78.8 kg (173 lb 12.8 oz) 01/10/2017 10:06 AM DRY ROOM ATTENDANT Height - - Body Mass Index 30.79 [...] I have performed today. Keri Elias MD ROOM ATTENDANT Jeannette Mayer - 01/10/2017 10:00 AM CST Return OB visit 29-34 weeks ?? Subjective: Azul is a 36 year old female at 31w6d with a history of frequent UTIs who returns for care. VINCENT Mar 08, 2017. - Concerns today: Pt complains of some round ligament and low back pain after travelling for [place]. Currently taking amoxicillin, no UTI or yeast [...] MS3, on behalf of Dr. Keri Elias. ROOM ATTENDANT documented in this encounter Plan of Treatment Not on filedocumented as of this encounter Procedures Procedure Name Priority Date/Time Associated Diagnosis Comme nts HEMOGLOBIN A1C Routine 01/10/2017 11:51 AM Screening for Resul ts for this DRY ROOM ATTENDANT condition procedure are i n the results section. URINE CULTURE Routine 01/10/2017 11:36 AM Recurrent UTI Result s for this DRY ROOM ATTENDANT procedure are i n the results section. URINALYSIS(LABDAQ) Routine 01/10/2017 10:19 AM Screening for R esults for this DRY ROOM ATTENDANT condition procedure are i n the results section. documented in this encounter Results Hemoglobin A1c (01/10/2017 11:51 AM DRY ROOM ATTENDANT) P athologist Signature Hemoglobin A1C 4.6 4.3 - 6.0 01/10/2017 [facility] 4:02 PM DRY ROOM ATTENDANT [facility] Specimen Anatomical Collection Method Collection Time Receive d Time (Source) Location / / Volume Laterality Blood specimen 01/10/2017 11:51 7 1:05 (specimen) AM DRY ROOM ATTENDANT PM DRY ROOM ATTENDANT Keri Elias MD LAB - BLOOD ORDERABLES Performing Organization Address City/[facility] Phon e Number [facility] [address] [place], [place] [phone] [place] [address] Urine Culture Aerobic Bacterial (01/10/2017 11:36 AM DRY ROOM ATTENDANT) Component Value Ref Test Analysis Performed At [facility] Range Method Time Signature Specimen Midstream Urine INFECTIOUS Description DISEASE DIAGNOSTIC LABORATORY Special Specimen received 01/10/2017 [facility] in preservative 5:40 PM DRY ROOM ATTENDANT [facility] Culture Micro >100,000 colonies/mL 01/11/2017 INFE CTIOUS mixed urogenital teresa 5:40 PM DRY ROOM ATTENDANT [facility] DIAGNOSTIC LABORATORY Culture Micro Susceptibility 01/11/2017 INFECTIOUS testing not 5:40 PM DRY ROOM ATTENDANT DISEASE routinely done DIAGNOSTIC LABORATORY Specimen (Source) Anatomical Collection Method Collection Time Re ceived Time Location / / Volume Laterality Examination of 01/10/2017 11:36 7 1:04 midstream urine AM DRY ROOM ATTENDANT PM DRY ROOM ATTENDANT specimen (procedure) Keri Elias MD LAB - MICRO GENERAL ORDERABL ES Performing Organization Address [facility] Phon e Number INFECTIOUS DISEASES [address] [place] [phone] DIAGNOSTIC LABORATORY, [facility] INFECTIOUS DISEASE [address] DIAGNOSTIC LABORATORY [address] (ABNORMAL) Urinalysis (UA) ([facility]) (01/10/2017 10:19 AM DRY ROOM ATTENDANT) [facility] Method Time Signature Specific [place] 1.025 1.005 - [place] Urine 1.030 [facility] pH Urine 6.5 4.5 - 8.0 [place] [facility] Leukocyte 1+ (A) NEGATIVE [place] Esterase UR [facility] Nitrite Urine Negative NEGATIVE [place] [facility] Protein UR 1+ (A) NEGATIVE [place] [facility] Glucose Urine Negative NEGATIVE [facility] LABDAQ Ketones Urine Trace (A) NEGATIVE [facility] LAB[facility] Urobilinogen 0.2 E.U./dL 0.2 E.U./dL [place] mg/dL [facility] LABDAQ Bilirubin UR Negative NEGATIVE [facility] LABDAQ Blood UR 1+ (A) NEGATIVE [facility] Specimen Anatomical Collection Method Collection Time Receive d Time (Source) Location / / Volume Laterality Urine specimen 01/10/2017 10:19 7 (specimen) AM DRY ROOM ATTENDANT 10:19 AM DRY ROOM ATTENDANT Keri Elias MD LAB - LABDAQ Performing Organization Address City/State/ZIP Code Phon e Number [facility] [address], [place] [address] LABDAQ documented in this encounter Visit Diagnoses Diagnosis Screening for condition - Primary Screening for unspecified condition Recurrent UTI Urinary tract infection, site not specif ied documented in this encounter Care Teams Systems Analysis Manager Relationship Specialty Start Date End Date Keri Elias PCP - General Family Practice 03/12/15 9 MD Ira Glez David Wayne, MD Orthopedics 07/09/[address] [place], [place] [id number] [place], [place] [id number] Astrid Rios PA-C Physician Motor And Generator Assembler Physician Motor And Generator Assembler - 07/09/14 Surgical documented as of this encounter
--- OUTSIDE RECORDS SUMMARY | 2022-01-07 14:39 | XMS_ITS | Encounter Summary ---
:1980 Author Organization [place] Address [facility] [place] [address] Care Team Providers Name Role Phone Bebeto Roth MD Unavailable Astrid Rios PA-C Unavailable Keri Elias MD Primary Care Provider Unavailable Reason for Visit Diagnostic Imaging XR - Closed Specialty Diagnoses / Procedures Referred By Contact Refer red To Contact Diagnoses S/P spinal fusion Bebeto Roth MD Procedures XR Spine Complete [address] [place], [place] [address] Referral ID Status Reason Start Date Expiration Date Visits Requ ested Visits Authorized [id number] Closed 03/27/2017 03/27/2018 1 1 Encounter Details Date Type Department Care Team Description 03/30/2017 Radiant Appointment [facility] Imaging Bebeto Roth S/P spinal fusion Center Farhana MD Devan 9 [facility] SE [address] [place] [address] [phone] Social History Tobacco Use Types Packs/Day Years [...] n Results for this SCOLIOSIS 2 VIEWS DERRICK HAND procedure are in the results section. documented in this encounter Results XR Spine Complete 2 Views (03/30/2017 12:40 PM DERRICK HAND) Anatomical Region Laterality Modality Spine Computed Radiography Specimen (Source) Anatomical Location Collection Method / Collectio n Time Received Time / Laterality Volume Impressions 03/30/2017 1:17 PM DERRICK HAND Impression: 1. Mild right convexed curvature of the main thoracic spine. 2. No ??global sagittal imbalance. 3. Weight bearing axis as detailed above . 4. Stable posterior instrumented fusion from T10 to L3 ALISHA POPE MD Narrative 03/30/2017 1:17 PM DERRICK HAND EXAMINATION: XR SPINE COMPLETE 2 VW, XR [...] No substantial global coronal imbalance. Sagittal Vertical [place] (A vertical line drawn from the center [...] No substantial global coronal imbalance. Sagittal Vertical [place] (A vertical line drawn from the center [...] status documented in this encounter Care Teams Tower Supervisor Relationship Specialty Start Date End Date Keri Elias PCP - General Family Practice 03/12/15 9 MD Ira Glez David Wayne, MD Orthopedics 07/09/[address] [place] [address] Astrid Rios PA-C Physician Warehouse Traffic Supervisor Physician Warehouse Traffic Supervisor - 07/09/14 Surgical documented as of this encounter
--- OUTSIDE RECORDS SUMMARY | 2022-01-07 14:40 | XMS_ITS | Encounter Summary ---
:1980 Author Organization [place] Address [address] [facility] [place] [address] Care Team Providers Name Role Phone Bebeto Roth MD Unavailable Astrid Rios PA-C Unavailable Keri Elias MD Primary Care Provider Unavailable Reason for Visit Reason Comments Care NOB Encounter Details Date Type Department Care Team Description 08/05/2016 Office Visit [facility] Family Keri Elias Vertigo (Primary Dx); Medicine Clinic MD [place] test positive; [address], [facility] ; [address] Encounter for supervision of normal first in first trimester; [place], [place] [address] High-risk , first t [facility] [phone] Social History Tobacco Use Types Packs/Day Years [...] PM CDT Thank you for coming to [facility]! - If you had lab testing [...] following numbers --f your referral is for [facility] please call [phone] --If your referral is to outside [facility] please call the clinic number ([phone]) and ask for your team daycare director. - If you need any refills please call your pharmacy and they will contact us. - If you have any concerns about today's visit or wish to schedule another appointment please call our office [phone] (8-5:00 M-F) - If you have urgent medical concerns call [phone] at any time of the day. - If you have a medical emergency please call [phone]. Because you are , we have additional resources for you: - You may call Martha Barfield, our OB coordinator at [phone] during normal business hours, for non-urgent questions about your . - Immediate OB help is also available 24 hours a day, seven days a week via the [facility] at [phone]. Reminders: Before 14 weeks: dating ultrasound This [...] or baby. Again, thank you for choosing [facility]. Please let us know how we can best partner with you to improve your and your family's health. Thank you for coming to [facility]! - If you had lab testing [...] following numbers --f your referral is for [facility] please call [phone] --If your referral is to outside [facility] please call the clinic number ([phone]) and ask for your team daycare director. - If you need any refills please call your pharmacy and they will contact us. - If you have any concerns about today's visit or wish to schedule another appointment please call our office [phone] (8-5:00 M-F) - If you have urgent medical concerns call [phone] at any time of the day. - If you have a medical emergency please call [phone]. Because you are , we have additional resources for you: - You may call Martha Barfield, our OB coordinator at [phone] during normal business hours, for non-urgent questions about your . - Immediate OB help is also available 24 hours a day, seven days a week via the [facility] at [phone]. Reminders: Before 14 weeks: dating ultrasound This [...] or baby. Again, thank you for choosing [facility]. Please let us know how we [...] No Down's syndrome No Lucas-Sach's disease No [place]'s chorea No Any other inherited genetic or [...] 0 ??? fluticasone (FLONASE) 50 MCG/ACT spray [place] 1-2 sprays into both nostrils daily 16 [...] type and screen (08/05/2016 2:21 PM CDT) [facility] gist Method Time Signature ABO O [facility] RH(D) Pos [facility] Antibody Neg [facility] Test Valid [facility] Specimen 08/08/2016 [facility] OF [facility] Specimen Anatomical Collection Method Collection Time Receive d Time (Source) Location / / Volume Laterality Blood specimen VENOUS BLOOD / 08/05/2016 2:21 PM 08/05 2:26 (specimen) Unknown CDT PM CDT Keri Elias MD LAB - BLOOD BANK TEST ORDER Performing Organization Address City/State/ZIP Code Phon e Number [facility] [address] [place], [place] [phone] [place] [address] Varicella Zoster Virus Antibody IgG (08/05/2016 11:55 AM CDT) P athologist Signature Varicella 0.4 0.0 - 0.8 [facility] Zoster Virus [place] [facility] Antibody IgG [facility] Comment: Negative, suggests no immunologic exposu [...] Address City/State/ZIP Code Phon e Number [address] Rubella Antibody IgG Quantitative (08/05/2016 11:55 AM CDT) Analysis Performed At Patho logist Time Signature Rubella Antibody 24 IU/mL [facility] OF IgG Quantitative [facility] Comment: Positive. ??Suggests previous exposure o r [...] LAB - BLOOD ORDERABLES Performing Organization Address City/[facility]/ZIP Code Phon e Number [address] HIV Antigen Antibody Combo (08/05/2016 11:55 AM CDT) Patholo gist Method Time Signature HIV Antigen Nonreactive NR [facility] OF [facility] HIV-1 p24 Ag & HIV-1/HIV-2 Ab Not Detected [facility] Combo [facility] Specimen Anatomical Collection Method Collection Time Receive d Time (Source) Location / / Volume Laterality Blood specimen VENOUS BLOOD / 08/05/2016 11:55 017 (specimen) Unknown AM CDT 12:00 PM CDT Keri Elias MD LAB - BLOOD ORDERABLES Performing Organization Address City/State/ZIP Code Phon e Number [facility] [address] [place], [place] [phone] [place] [address] Anti Treponema (08/05/2016 11:55 AM CDT) Analysis Performed At Patho logist Time Signature Treponema Negative NEG [facility] OF pallidum [facility] Antibody [facility] Specimen Anatomical Collection Method Collection Time Receive d Time (Source) Location / / Volume Laterality Blood specimen VENOUS BLOOD / 08/05/2016 11:55 017 (specimen) Unknown AM CDT 12:00 PM CDT Keri Elias MD LAB - BLOOD ORDERABLES Performing Organization Address City/State/ZIP Code Phon e Number [address] (ABNORMAL) Hepatitis B Surface Antibody (08/05/2016 11:55 AM CDT) [facility] Method Time Signature Hepatitis B 378.74 (H) <8.00 [facility] OF Surface m[IU]/mL [facility] Comment: Reactive, Patient is considered to [...] LAB - BLOOD ORDERABLES Performing Organization Address City/[facility]/ZIP Code Phon e Number [phone] [place] [address] Hepatitis B surface antigen (08/05/2016 11:55 AM CDT) [facility] Method Time Signature Hep B Surface Nonreactive NR [facility] Specimen Anatomical Collection Method Collection Time Receive d Time (Source) Location / / Volume Laterality Blood specimen VENOUS BLOOD / 08/05/2016 11:55 017 (specimen) Unknown AM CDT 12:00 PM CDT Keri Elias MD LAB - BLOOD ORDERABLES Performing Organization Address City/State/ZIP Code Phon e Number [phone] [place] [address] HPV High Risk Types DNA Cervical (08/05/2016 9:36 AM CDT) Component Value Ref Test Analysis Performed At [facility] Method Time Signature HPV 16 DNA Negative NEG [facility] HPV 18 DNA Negative NEG [facility] Other HR HPV Negative NEG [facility] Final This patient's sample is negative for HPV DNA. [facility] Diagnosis (Note) OF [place] METHODOLOGY: ??The [employer] mile 4800 system uses automated extraction, MEDICAL simultaneous amplification of HPV (L1 region) and beta-globi n, [facility] followed by ??real time detection of fluorescent [...] and its performance characteristics determined by the [facility], [facility]. It has not been cleared or approved by the FDA. The laboratory is regulated under CLIA as qualified to perform high-complexity testing. This test is used for clinical purp oses. It should not be regarded as investigational or for research. Specimen Cervical Cells [facility]ITY Description [id number] OF [facility] Specimen Anatomical Collection Method Collection Time Receive d Time (Source) Location / / Volume Laterality Cervical Cells 08/05/2016 9:36 AM 017 CDT 12:04 PM CDT Keri Elias MD LAB - BLOOD ORDERABLES Performing Organization Address City/State/ZIP Code Phon e Number [facility] [address] [place], [place] [phone] [place] [address] Pap imaged thin layer screen with HPV - recommended age 30 - 65 years (select HPV order below) (08/05/2016 9:36 AM CDT) Component Value Ref Test Analysis Performed At [facility] Range Method Time Signature PAP NIL TITA Young Report COPATH Acc#: [id number] ?? Signed: 08/09/2016 13:30 ?? MR#: [id number] SPECIMEN/STAIN PROCESS: Pap imaged thin layer [...] rcinomas or other cancers. TESTING LAB LOCATION: ??[facility] [facility], [facility], [address] [place] [phone], Processed and screened at [facility] nt, [facility] Specimen Anatomical Collection Method Collection Time Receive d Time (Source) Location / / Volume Laterality Cervical Cells 08/05/2016 9:36 AM 017 9:15 CDT AM CDT Keri Elias MD LAB - OPTIME CLINICAL SPECIM EN Performing Organization Address City/State/ZIP Code Phon e Number [facility] Chlamydia trachomatis PCR (08/05/2016 9:34 AM CDT) Component Value Ref Test Analysis Performed At [facility] gist Range Method Time Signature Specimen Cervical [facility] Chlamydia Negative NEG [facility] OF [facility] Negative for C. trachomatis rRNA by instructor ballroom dancing mediated amplification. [place] [facility] PCR A negative result by transc ription mediated amplification does not preclude the [facility] presence of C. trachomatis infection because [...] Organization Address City/State/ZIP Code Phon e Number [phone] [place] [address] [facility] [place] Neisseria gonorrhoeae PCR (08/05/2016 9:34 AM CDT) Component Value Ref Test Analysis Performed At Patholo gist Range Method Time Signature Specimen Cervical [facility] N Gonorrhea Negative NEG [facility]ITY PCR Negative for N. gonorrhoeae rRNA by transcripti on mediated amplification. [place] [facility] A negative result by transc ription mediated amplification does not preclude the [facility] presence of N. gonorrhoeae infection because [...] MICRO GENERAL ORDERABL ES Performing Organization Address City/[facility]/ZIP Code Phon e Number [address] (ABNORMAL) Hemoglobin (HGB) (LabDAQ) (08/05/2016 9:09 AM CDT) P athologist Signature Hemoglobin 17.8 (H) 11.7 - 15.7 [facility] g/dL MEDICINE LABDAQ Specimen Anatomical Collection Method Collection Time Receive d Time (Source) Location / / Volume Laterality Blood specimen VENOUS BLOOD / 08/05/2016 9:09 AM 08/05 9:09 (specimen) Unknown CDT AM CDT Keri Elias MD LAB - LABDAQ Performing Organization Address City/State/ZIP Code Phon e Number [address] [address] LABDAQ documented in this encounter Visit Diagnoses Diagnosis Vertigo - Primary Dizziness and giddiness test positive examination or test, positive result First trimester Encounter for supervision of normal firs t in first trimester Supervision of normal first High-risk , first trimester documented in this encounter Care Teams Ion Implant Machine Operator Relationship Specialty Start Date End Date Keri Elias PCP - General Family Practice 03/12/15 9 MD Ira Glez David Wayne, MD Orthopedics 07/09/[address] [place] [address] Astrid Rios PA-C Physician Medicine Aide Physician Medicine Aide - 07/09/14 Surgical documented as of this encounter
--- OUTSIDE RECORDS SUMMARY | 2022-01-07 14:40 | XMS_ITS | Encounter Summary ---
:1980 Author Organization [place] Address [address] [facility] [place] [address] Care Team Providers Name Role Phone Marshalucy Lisa Primary Care Provider Encounter Details Date Type Department Care Team Description 01/29/2014 Radiant Appointment [facility]O XRAY Astrid Rios, Scoliosis CYNDI [facility] 1ST FLOOR, CLINIC [address] [place] [phone] Social History Tobacco Use Types Packs/Day Years [...] Resu lts for this SCOLIOSIS 2 VIEWS MANAGER MANUFACTURING procedure are in the results section. documented in this encounter Results XR Spine Complete 2 vw (01/29/2014 8:26 AM MANAGER MANUFACTURING) Anatomical Region Laterality Modality Spine Computed Radiography Specimen (Source) Anatomical Location Collection Method / Collectio n Time Received Time / Laterality Volume Impressions 01/29/2014 8:54 AM MANAGER MANUFACTURING IMPRESSION: 1. Redemonstration of mild dextroscolios is in the lower thoracic spine, with intact instrumentation follo wing posterior instrumented fusion from T10-L3. BABS MONTES MD Narrative 01/29/2014 8:54 AM MANAGER MANUFACTURING EXAMINATION: Spine 2 views DATE: 01/29/2014 HISTORY: [...] T10-L3. BABS MONTES MD Astrid Rios PA-C [facility] TAYLOR documented in this encounter Visit Diagnoses Diagnosis Scoliosis Scoliosis (and kyphoscoliosis), idiopath ic documented in this encounter Care Teams Wildlife Protector Relationship Specialty Start Date End Date Lisa Dewitt DO PCP - General 08/12/13 07/15/14 [facility] 2019 [place] [address] documented as of this encounter
--- OUTSIDE RECORDS SUMMARY | 2022-01-07 14:40 | XMS_ITS | Encounter Summary ---
:1980 Author Organization [place] Address [facility] [place] [address] Care Team Providers Name Role Phone Lisa Dewitt DO Primary Care Provider Reason for Referral [facility] - Closed Specialty Diagnoses / Procedures Referred By Contact Refer red To Contact Diagnoses Scoliosis/kyphoscoliosis Bebeto Roth MD [facility] [place] [address] [facility] [address] [place], [place] [address] Referral ID Status Reason Start Date Expiration Date Visits Requ ested Visits Authorized [id number] Closed 06/05/2014 12/02/2014 1 1 Reason for Visit Reason Comments Surgical Followup s/p spinal fusion 09/3009, pt . states she is noticing some curve changes Encounter Details Date Type Department Care Team Description 06/05/2014 Office Visit Orthopaedic Clinic Bebeto Roth Scoliosis/kyphoscolio [facility] MD Devan sis (Primary Dx) Center [address] 1st Floor, [address] [phone] Social History Tobacco Use Types Packs/Day Years [...] the realm of a small change management expert the past 4 years. 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 Date of injury: none Date of surgery: [...] Priority Associated Diagnoses Order S [facility] PHYSICAL THERAPY Referral Routine Scoliosis/kyphoscoliosis Expected: 06/05/2014, REFERRAL Expires: 2015 (External-Prints) documented as of this encounter Visit Diagnoses Diagnosis Scoliosis/kyphoscoliosis - Primary Scoliosis (and kyphoscoliosis), idiopath ic documented in this encounter Care Teams Edging Machine Catcher Relationship Specialty Start Date End Date Lisa Deiwtt DO PCP - General 08/12/13 07/15/14 [facility] 2019 [place] [address] documented as of this encounter
--- OUTSIDE RECORDS SUMMARY | 2022-01-07 14:40 | XMS_ITS | Encounter Summary ---
:1980 Author Organization [place] Address [address] [facility] [place] [address] Care Team Providers Name Role Phone Bebeto Roth MD Unavailable Astrid Rios PA-C Unavailable Keri Elias MD Primary Care Provider Unavailable Reason for Visit Reason Comments Orders Encounter Details Date Type Department Care Team Description 07/25/2016 Orders Only [facility] Orthopaedic Bebeto Roth is (Primary Dx); Clinic MD Devan S/P spinal fusion [id number] 4th [address] [place] [address] [id number] Social History Tobacco Use Types Packs/Day Years [...] status documented in this encounter Care Teams Splitting Machine Feeder Relationship Specialty Start Date End Date Keri Elias PCP - General Family Practice 03/12/15 9 MD Ira Glez David Wayne, MD Orthopedics 07/09/14 [facility] [place], [place] [phone] Astrid Rios PA-C Physician Tax Appraiser Physician Tax Appraiser - 07/09/14 Surgical documented as of this encounter
--- OUTSIDE RECORDS SUMMARY | 2022-01-07 14:40 | XMS_ITS | Encounter Summary ---
:1980 Author Organization [place] Address [address] [facility] [place] [address] Care Team Providers Name Role Phone Bebeto Roth MD Unavailable Astrid Rios PA-C Unavailable Keri Elias MD Primary Care Provider Unavailable Reason for Visit Reason Onset Date Comments Call To Schedule Appointment 07/05/2016 NOB Appt Re quest Encounter Details Date Type Department Care Team Description 07/05/2016 Telephone [facility] Keri Elias Call To Schedule Medicine Clinic MD [place] Appointment (NOB Appt [address], Request ) [address] [place], [place] [address] Social History Tobacco Use Types [...] in this encounter Care Teams Director Of Graduate Medical Education Relationship Specialty Start Date End Date Keri Elias PCP - General Family Practice 03/12/15 9 MD Ira Glez David Wayne, MD Orthopedics 07/09/14 [facility] [place], [place] [id number] [place] [address] Astrid Rios PA-C Physician Cable Tv Installer Physician Cable Tv Installer - 07/09/14 Surgical documented as of this encounter
--- OUTSIDE RECORDS SUMMARY | 2022-01-07 14:40 | XMS_ITS | Encounter Summary ---
:1980 Author Organization [place] Address [facility] [place] [address] Care Team Providers Name Role Phone Lisa Dewitt DO Primary Care Provider Reason for Referral [facility] - Closed Specialty Diagnoses / Procedures Referred By Contact Refer red To Contact Diagnoses Scoliosis Acquired postural kyphosis Astrid Rios PA-C [facility] [address] [place] [phone] Referral ID Status Reason Start Date Expiration Date Visits Requ ested Visits Authorized [id number] Closed 01/29/2014 07/28/2014 1 1 MACY COORDINATOR Reason for Visit Reason Comments Back Pain Scoliosis. Feeling screws an d clicking Encounter Details Date Type Department Care Team Description 01/29/2014 Office Visit Orthopaedic Clinic Astrid Rios, Scoliosis (Primary Dx); [facility] MELISA Acquired postural kyphosis [facility] 1st Floor, [address] [place] [address] [place] [address], [phone] [place] [id number] Social History Tobacco Use Types Packs/Day Years [...] (151 lb 12.8 oz) 01/29/2014 8:18 AM PHARMACY COORDINATOR Height 160 cm (5' 3) 01/29/2014 8:18 AM PHARMACY COORDINATOR Body Mass Index 26.89 01/29/2014 8:18 AM PHARMACY COORDINATOR documented in this encounter Progress Notes Astrid [...] midline in the middle of her spine. Sum[place] it one time yesterday, no recurrence. Also [...] DE OLIVEIRA Copy to patient AGUSTINA TELLEZ [address] [place] [phone] MACY COORDINATOR documented in this encounter Nursing Notes John [...] daily fluticasone (FLONASE) 50 MCG/ACT nasal spray [place] 1-2 sprays into both nostrils daily loratadine-pseudoePHEDrine [...] Reactions ??? Seasonal Allergies Mago Lopez CMA MACY COORDINATOR documented in this encounter Plan of Treatment Scheduled Referrals Name Type Priority Associated Diagnoses Order S chedule PHYSICAL THERAPY Referral Routine Scoliosis Ordered: 01/29/2014 REFERRAL (Internal) Acquired postural kyphosis documented as of this encounter Visit Diagnoses Diagnosis Scoliosis - Primary Scoliosis (and kyphoscoliosis), idiopath ic Acquired postural kyphosis Kyphosis (acquired) (postural) documented in this encounter Care Teams Graduating Machine Operator Relationship Specialty Start Date End Date Lisa Dewitt DO PCP - General 08/12/13 07/15/14 [facility] 2019 [place] [address] documented as of this encounter
--- OUTSIDE RECORDS SUMMARY | 2022-01-07 14:40 | XMS_ITS | Encounter Summary ---
:1980 Author Organization [place] Address [address] [facility] [place] [address] Care Team Providers Name Role Phone Lisa Dewitt DO Primary Care Provider Reason for Visit Reason Onset Date Comments Refill Request 11/11/2013 Encounter Details Date Type Department Care Team Description 11/11/2013 Refill [facility] Lisa Dewitt DO Refill Request [place] [address], [address] [place] [address] [place], [place] [address] [phone] Social History Tobacco Use Types Packs/Day Years [...] acne documented in this encounter Care Teams Aircraft Detail Draftsperson Relationship Specialty Start Date End Date Lisa Dewitt DO PCP - General 08/12/13 07/15/[address] [place] [address] documented as of this encounter
--- OUTSIDE RECORDS SUMMARY | 2022-01-07 14:40 | XMS_ITS | Encounter Summary ---
:1980 Author Organization [place] Address [address] [facility] [place] [address] Care Team Providers Name Role Phone Lisa Dewitt DO Primary Care Provider Encounter Details Date Type Department Care Team Description 09/17/2013 Orders Only [facility] Medicine Lisa Dewitt DO Acne vulgaris Clinic [facility] [address] [place] [address] [place] [address] [place], [place] [address] [phone] Social History Tobacco Use Types Packs/Day Years [...] acne documented in this encounter Care Teams Forester Silviculture Relationship Specialty Start Date End Date Lisa Dewitt DO PCP - General 08/12/13 07/15/14 [facility] [address] [place] [address] documented as of this encounter
--- OUTSIDE RECORDS SUMMARY | 2022-01-07 14:40 | XMS_ITS | Encounter Summary ---
:1980 Author Organization [place] Address [address] [place] [address]. [place] [address] Care Team Providers Name Role Phone Meeta Dewittanda Primary Care Provider Reason for Visit Reason Comments Orders Encounter Details Date Type Department Care Team Description 06/04/2014 Orders Only Orthopaedic Clinic Bebeto Roth Scoliosis (Primary Dx); [facility] MD Devan S/P spinal fusion Center [address] [place] [address] 1st Floor, [address] [place] [address] [phone] Social History Tobacco Use Types Packs/Day Years [...] the cervicothoracic junction lying approximately 6 cm in flight refueling manager ior to the lumbosacral junction. Stable mild [...] the cervicothoracic junction lying approximately 6 cm in flight refueling manager ior to the lumbosacral junction. Stable mild [...] status documented in this encounter Care Teams Dining Room Attendant Cafeteria Relationship Specialty Start Date End Date Lisa Dewitt DO PCP - General 08/12/13 07/15/14 [facility] 2019 [place] [address] documented as of this encounter
--- OUTSIDE RECORDS SUMMARY | 2022-01-07 14:40 | XMS_ITS | Encounter Summary ---
:1980 Author Organization [place] Address [address] [place] [address] Care Team Providers Name Role Phone Bebeto Roth MD Unavailable Astrid Rios PA-C Unavailable Keri Elias MD Primary Care Provider Unavailable Reason for Visit Reason Onset Date Comments Refill Request 08/11/2016 ondansetron (ZOFRAN) 4 MG tablet Encounter Details Date Type Department Care Team Description 08/11/2016 Refill [facility] Jasmin Elias Refill Request Clinic MD [place] (ondansetron (ZOFRAN) [address]) [address] [place], [place] [address] Social History Tobacco Use Types [...] phrase .smirefuse and route it to the [facility] FACULTY MEMBER pool to inform the patient and the pharmacy. Kristina Stafford Telephone Encounter - Tala Velasco CMA - 08/11/2016 12:38 PM CDT [facility] Family Medicine phone call message- patient requesting a refill: Full Medication Name: ondansetron (ZOFRAN) 4 MG tablet Pharmacy confirmed as [id number] - [place], [place] - [address] [facility] [address] [facility] [phone] : Yes Additional Comments: None OK to leave a message on voice mail? Yes Primary language: Iranian Svp Monetization needed? No Call taken on August 11, 2016 at 12:38 PM by Tala Velasco documented in this encounter Plan of Treatment Not on filedocumented as of this encounter Visit Diagnoses Diagnosis Nausea Nausea alone documented in this encounter Care Teams Supervisor Cloth Winding Relationship Specialty Start Date End Date Keri Elias PCP - General Family Practice 03/12/15 9 MD Ira Glez, Bebeto Hartman MD Orthopedics 07/09/[address] [place] [address] [address] [place] [address] Astrid Rios PA-C Physician Children Teacher Physician Children Teacher - 07/09/14 Surgical documented as of this encounter
--- OUTSIDE RECORDS SUMMARY | 2022-01-07 14:40 | XMS_ITS | Encounter Summary ---
:1980 Author Organization [place] Address [address] [facility] [place] [address] Care Team Providers Name Role Phone Renate Lisa Primary Care Provider Reason for Visit Reason Comments Orders Encounter Details Date Type Department Care Team Description 01/28/2014 Orders Only Orthopaedic Clinic Astrid Rios, [place] (Primary [facility] PA-C Dx) [facility] 1st Floor, [address] [place] [address], [phone] [place] [id number] Social History Tobacco Use Types Packs/Day Years [...] Spine Complete 2 vw (01/29/2014 8:26 AM ELECTRICAL MAINTENANCE WORKER) Anatomical Region Laterality Modality Spine Computed Radiography Specimen (Source) Anatomical Location Collection Method / Collectio n Time Received Time / Laterality Volume Impressions 01/29/2014 8:54 AM ELECTRICAL MAINTENANCE WORKER IMPRESSION: 1. Redemonstration of mild dextroscolios is in the lower thoracic spine, with intact instrumentation follo wing posterior instrumented fusion from T10-L3. BABS MONTES MD Narrative 01/29/2014 8:54 AM ELECTRICAL MAINTENANCE WORKER EXAMINATION: Spine 2 views DATE: 01/29/2014 HISTORY: [...] ic documented in this encounter Care Teams Supervisor Irrigation Relationship Specialty Start Date End Date Lisa Dewitt DO PCP - General 08/12/13 07/15/14 [facility] 2019 [place] [address] documented as of this encounter
--- OUTSIDE RECORDS SUMMARY | 2022-01-07 14:40 | XMS_ITS | Encounter Summary ---
:1980 Author Organization [place] Address 24[address] [facility] [place] [address] Care Team Providers Name Role Phone Bebeto Roth MD Unavailable Astrid Rios PA-C Unavailable Clinic - [facility] Primary Care Provider + Reason for Visit Reason Onset Date Comments Refill Request 03/06/2015 minocycline (MINOCIN ,DYNACIN) 100 MG capsule Encounter Details Date Type Department Care Team Description 03/06/2015 Telephone [facility] Lisa Dewitt, Refill Re [facility] Clinic DO (minocycline [address] [place] [address], [facility] JM (MINOCIN,DYNACIN) [address] capsule) [place], [place] [address] [place], [place] [phone] Social History Tobacco Use Types Packs/Day Years [...] and hung up phone. Clarita Gunderson RN MOBILE BODY CUSTOMIZER Telephone Encounter - Joana Banerjee CMA - 03/06/2015 1:11 PM CST [facility] Family Medicine phone call message- patient requesting a refill: Full Medication Name: minocycline (MINOCIN,DYNACIN) 100 MG capsule 90 capsule 3 12/31/2013 -- Sig: Take 1 capsule (100 mg) by mouth daily Class: Fax Route: Oral Order: [id number] Dose: Pharmacy confirmed as [facility] [id number] [facility] & [address] [place] [phone] : Yes Additional Comments: OK to leave a message on voice mail? Yes Primary language: French Deburring And Tooling Machine Operator needed? No Call taken on March 06, 2015 at 1:12 PM by Joana Banerjee MOBILE BODY CUSTOMIZER documented in this encounter Plan of Treatment Not on filedocumented as of this encounter Visit Diagnoses Not on filedocumented in this encounter Care Teams Fence Installer Foreman Relationship Specialty Start Date End Date Clinic - Angela Laboy PCP - General 07/16/[address] [place] [address] [address] [place] [address] Bebeto Roth MD Orthopedics 07/09/[address] [place] [address] Astrid Rios PA-C Physician Service Clerk Physician Service Clerk - 07/09/14 Surgical documented as of this encounter
--- OUTSIDE RECORDS SUMMARY | 2022-01-07 14:40 | XMS_ITS | Encounter Summary ---
:1980 Author Organization [place] Address [address] [facility] [place] [address] Care Team Providers Name Role Phone Bebeto Roth MD Unavailable Astrid Rios PA-C Unavailable Keri Elias MD Primary Care Provider Unavailable Reason for Visit Reason Comments Care ob care Refill Request erika Encounter Details Date Type Department Care Team Description 10/11/2016 Office Visit Melisa Sauceda c are, second trimester (Primary Dx); Medicine Clinic MD Lois Nausea; [address] [place] [address], [address] [place] [address] [address] [facility] [id number] [place], [place] [phone] [id number] Social History Tobacco Use Types Packs/Day Years [...] one month Thank you for coming to [facility] today. Lab Testing: If you had lab testing today and your results are reassuring or normal they will be mailed to you or sent through Modti within 7 days. If the lab tests need quick action we will call you with the results. The phone number we will call with results is # [phone] (home) . If this is not the best numberplease call our clinic and change the number. Medication Refills: If you need any refills please call your pharmacy and they will contact us. If you need to rock picker your refill at a new pharmacy, please contact the new pharmacy directly. The new pharmacy will help you get your medications transferred faster. Scheduling: If you have any concerns about today's visit or wish to schedule another appointment please call ouroffice during normal business hours [phone] (8- 5:00 M-F) If a referral was made to a [facility] and you don't get a call from [facility] please call [phone]. If a Mammogram was ordered for you at [facility] call [phone] to schedule or change yourappointment. If you had an XRay/CT/Ultrasound/MRI ordered the number is [phone] to schedule or change your radiology appointment. Medical Concerns: If you have urgent medical concerns please call [phone] at any time of the day. documented [...] . The patient plans to deliver at [facility] with myself and/or OB partner. care at [facility]. - Patient will continue taking vitamins [...] the final plan. Melisa Salvador MD PGY3 [facility] Research Worker Pager: [phone] Steffanie Parker MD - 10/11/2016 3:40 PM CDT Preceptor Attestation: Patient seen and discussed with the resident. Assessment and plan reviewed with resident and agreedupon. Supervising Physician: Steffanie Parker MD [facility] documented in this encounter Plan of Treatment Not on filedocumented as of this encounter Results US OB 14 +WKS SINGLE OR FIRST GESTATION (IN CLINIC) (10/19/2016) Anatomical Region Laterality Modality Abdomen/Pelvis Other Narrative 10/19/2016 2nd/3rd Trimester Ultrasound Report ?? CONCLUSIONS: US findings are consistent with LMP EGA by LMP 20w0d ??VINCENT by LMP :Mar 08, 2 018 EGA by this U/S: [id number] (+/- 7days): ED D by this ??U/S: 03/07/17 ? EFW 345.95g, 0lb 12oz ??Weight Percentil e: 63.9%tile Follow up: Routine follow up as needed. PCP: Keri Elias Physician/Mixing Pan Tender: Shruthi Ruelas iams Indications: Standard Exam and brittany vey LMP: Patient's last menstrual period was 06/01/2016. ?? FHR: 153 BPM ??Fluid: normal TJ: 10.83 Placenta Location: Posterior and Fundal number:1 ??Presentation: Cephalic Technique: Transabdominal Machine: TappTime Pro 5 SURVEY ? Cerebellum ? Intracranial [...] 3.34 cm ?? 20wks 3d ?? Shruthi Bladn [facility] RVT Attestation of Reviewer. I reviewed the images and agree with eliu singer interpretation above. August Ontiveros MD Steffanie Parker MD IMG US ORDERABLES documented in this encounter Visit Diagnoses Diagnosis care, second trimester - Primar y Nausea Nausea alone Vertigo Dizziness and giddiness care, second trimester documented in this encounter Care Teams Sock Mender Relationship Specialty Start Date End Date Keri Elias PCP - General Family Practice 03/12/15 9 MD Ira Glez David Wayne, MD Orthopedics 07/09/14 [facility] [place] [address] Astrid Rios PA-C Physician Assistant Executive Housekeeper Physician Assistant Executive Housekeeper - 07/09/14 Surgical documented as of this encounter
--- OUTSIDE RECORDS SUMMARY | 2022-01-07 14:40 | XMS_ITS | Encounter Summary ---
:1980 Author Organization [place] Address [address] [facility] [place] [address] Care Team Providers Name Role Phone Bebeto Roth MD Unavailable Astrid Rios PA-C Unavailable Keri Elias MD Primary Care Provider Unavailable Reason for Visit Reason Onset Date Comments Refill Request 10/03/2016 Meclizine 12.5mg Encounter Details Date Type Department Care Team Description 10/03/2016 Refill [facility] Jasmin lEias Refill Request Clinic MD [place] (Meclizine 12.5mg) [address] [place] [address], [address] [place] [address] Social History Tobacco Use Types Packs/Day Years [...] phrase .smirefuse and route it to the [facility] HOSPITALAUTOMATION MACHINE OPERATOR pool to inform the patient and the pharmacy. Kristina Stafford documented in this encounter Plan of Treatment Not on filedocumented as of this encounter Visit Diagnoses Diagnosis Vertigo Dizziness and giddiness documented in this encounter Care Teams Automotive Finance Manager Relationship Specialty Start Date End Date Keri Elias PCP - General Family Practice 03/12/15 9 MD Ira Glez David Wayne, MD Orthopedics 07/09/[address] [place] [address] Astrid Rios PA-C Physician Interactive Media Designer Physician Interactive Media Designer - 07/09/14 Surgical documented as of this encounter
--- OUTSIDE RECORDS SUMMARY | 2022-01-07 14:40 | XMS_ITS | Encounter Summary ---
:1980 Author Organization [place] Address [facility] [place] [address] Care Team Providers Name Role Phone Lisa Dewitt DO Primary Care Provider Reason for Visit Reason Onset Date Comments Medication Question 01/21/2014 Encounter Details Date Type Department Care Team Description 01/21/2014 Telephone [facility] Lisa Dewitt DO Medication Question Clinic [address] [address] [phone] (Wo rk) Social History Tobacco Use Types [...] per protocol. Patient notified. Bunny Patino RN BALL SCOUT Telephone Encounter - Hillary Brumfield - 01/21/2014 9:46 AM CST [facility] Family Medicine phone call message- medication clarification/question: [...] each of her children. Pharmacy confirmed as [facility] [address] [place], [place] - [address] AT [address]: Yes OK to leave a message on voice mail? Yes Primary language: Maltese Mileage Clerk needed? No Call taken on January 21, 2014 at 9:47 AM by Hillary Brumfield BALL SCOUT documented in this encounter Plan of Treatment Not on filedocumented as of this encounter Visit Diagnoses Diagnosis Head lice Pediculus capitis (head louse) documented in this encounter Care Teams Children'S Entertainer Relationship Specialty Start Date End Date Lisa Dewitt DO PCP - General 08/12/13 07/15/14 [facility] [address] [place] [address] documented as of this encounter
--- OUTSIDE RECORDS SUMMARY | 2022-01-07 14:40 | XMS_ITS | Encounter Summary ---
:1980 Author Organization [place] Address [address] [facility] [place] [address] Care Team Providers Name Role Phone Bebeto Roth MD Unavailable Astrid Rios PA-C Unavailable Keri Elias MD Primary Care Provider Unavailable Reason for Visit Reason Onset Date Comments Refill Request 03/17/2016 Encounter Details Date Type Department Care Team Description 03/17/2016 [facility] Family Medicine Jos Elias, Refill Request Clinic [facility] [address], [address] [place], [place] [address] Social History Tobacco Use Types [...] phrase .smirefuse and route it to the [facility] FREELANCE DATA ENTRY pool to inform the patient and the pharmacy. Clementina Curtis CMA WELTER documented in this encounter Plan of Treatment Not on filedocumented as of this encounter Visit Diagnoses Diagnosis Acne vulgaris - Primary Other acne documented in this encounter Care Teams Police Matron Relationship Specialty Start Date End Date Keri Elias PCP - General Family Practice 03/12/15 9 MD Ira Glez David Wayne, MD Orthopedics 07/09/14 [facility] [address] [facility] [address] [place] [address] Astrid Rios PA-C Physician Postage Machine Operator Physician Postage Machine Operator - 07/09/14 Surgical documented as of this encounter
--- OUTSIDE RECORDS SUMMARY | 2022-01-07 14:40 | XMS_ITS | Encounter Summary ---
:1980 Author Organization [place] Address [facility] [place] [address] Care Team Providers Name Role Phone Lisa Dewitt DO Primary Care Provider Reason for Visit Reason Onset Date Comments Refill Request 12/31/2013 Encounter Details Date Type Department Care Team Description 12/31/2013 Telephone [facility] Lisa Dewitt DO Refill Request Clinic [place] [address], [address] [place] [address] [place], [place] [phone] Social History Tobacco Use Types Packs/Day Years [...] back with any questions. Bunny Patino RN BOSS Telephone Encounter - Hillary Brumfield - 12/31/2013 11:39 AM CST [facility] Family Medicine phone call message- patient requesting a refill: Full Medication Name: minocycline (DYNACIN) 100 MG Capsule Pharmacy confirmed as [facility] [address] [place], [place] - [address] [place] [address] [phone] : Yes Additional Comments: Patient states her insurance does not cover the Tablets, she needs the prescription to read Capsule. OK to leave a message on voice mail? Yes Primary language: Andorran Senior Administrative Support needed? No Call taken on December 31, 2013 at 11:39 AM by Hillary Brumfield BOSS documented in this encounter Plan of Treatment Not on filedocumented as of this encounter Visit Diagnoses Diagnosis Acne vulgaris Other acne documented in this encounter Care Teams Planograph Operator Relationship Specialty Start Date End Date Lisa Dewitt DO PCP - General 08/12/13 07/15/14 [facility] [address] [place] [address] documented as of this encounter
--- OUTSIDE RECORDS SUMMARY | 2022-01-07 14:40 | XMS_ITS | Encounter Summary ---
:1980 Author Organization [place] Address [address] [facility] [place] [address] Care Team Providers Name Role Phone Bebeto [...] Street, Anxiety ; [address] Panic attack [place] [address] Social History Tobacco Use Types Packs/Day Years Used Date Smoking Tobacco: Never Smokeless Tobacco: Never Alcohol Use Standard Drinks/Week Comments No 0 (1 standard drink = 0.6 oz pure alcoho l) Sex Assigned at Date Recorded Not on file documented as of this encounter Last Filed Vital Signs Vital Sign Reading Time Taken Comments Blood Pressure 115/78 03/12/2015 10:03 AM AUTOMOBILE LOCATOR Pulse 109 03/12/2015 10:03 AM AUTOMOBILE LOCATOR Temperature 36.6 ??C (97.9 ??F) 03/12/2015 10:03 AM AUTOMOBILE LOCATOR Respiratory Rate - - Oxygen Saturation 99% 03/12/2015 10:03 AM AUTOMOBILE LOCATOR Inhaled Oxygen Concentration - - Weight 71.4 kg (157 lb 6.4 oz) 03/12/2015 10:03 AM AUTOMOBILE LOCATOR Height - - Body Mass Index 27.44 [...] length 25 minutes, all spent counseling directly [id number] about medications. MOBILE LOCATOR documented in this encounter Plan of Treatment Not on filedocumented as of this encounter Visit Diagnoses Diagnosis Acne vulgaris - Primary Other acne Environmental allergies Allergic rhinitis, cause unspecified Anxiety Anxiety state, unspecified Panic attack Panic disorder without agoraphobia documented in this encounter Care Teams Orthodontist Assistant Relationship Specialty Start Date End Date Keri Elias PCP - General Family Practice 03/12/15 9 MD Ira Glez David Wayne, MD Orthopedics 07/09/[address] [place] [address] Astrid Rios PA-C Physician Chief Warden Physician Chief Warden - 07/09/14 Surgical documented as of this encounter
--- OUTSIDE RECORDS SUMMARY | 2022-01-07 14:40 | XMS_ITS | Encounter Summary ---
:1980 Author Organization [place] Address [facility] [place] [address] Care Team Providers Name Role Phone Bebeto Roth MD Unavailable Astrid Rios PA-C Unavailable Keri Elias MD Primary Care Provider Unavailable Reason for Visit Reason Comments Care Encounter Details Date Type Department Care Team Description 09/08/2016 Office Visit [facility] Keri Elias First t rimester ; Medicine Clinic MD [place] Nausea; [address] [place] [address], [facility] [address] [place] [address] Social History Tobacco Use Types Packs/Day Years [...] giddiness documented in this encounter Care Teams [id number] Armor Crewman Relationship Specialty Start Date End Date Keri Elias PCP - General Family Practice 03/12/15 9 MD Ira Glez David Wayne, MD Orthopedics 07/09/[address] [place] [address] Astrid Rios PA-C Physician Chief Nurse Anesthetist Physician Chief Nurse Anesthetist - 07/09/14 Surgical documented as of this encounter
--- OUTSIDE RECORDS SUMMARY | 2022-01-07 14:40 | XMS_ITS | Encounter Summary ---
:1980 Author Organization [place] Address [facility] [place] [address] Care Team Providers Name Role Phone Bebeto Roth MD Unavailable Astrid Rios PA-C Unavailable [facility] Primary Care Provider + Reason for Referral [facility] - Closed Specialty Diagnoses / Procedures Referred By Contact Refer red To Contact Diagnoses Kyphoscoliosis Astrid Rios PA-C [facility] [address] [place] [address] Referral ID Status Reason Start Date Expiration Date Visits Requ ested Visits Authorized [id number] Closed 07/16/2014 01/12/2015 1 1 Reason for Visit Reason Comments RECHECK s/p spinal fusion 09/3009, ba ck cracking Encounter Details Date Type Department Care Team Description 07/16/2014 Office Visit [facility] Clinic Astrid Rios Kyphoscoliosis (Primary [place] MELISA Dx) Rehabilitation [facility] 1st Floor, [address] [place] [address] [facility] [address] [facility] [phone] [place] [address] Social History Tobacco Use Types [...] back cracking Primary MD: sawyer Ref. MD: Cover Machine Operator? 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 Date of injury: Type of injury: Date [...] ic documented in this encounter Care Teams Immigration Judge Relationship Specialty Start Date End Date Clinic - Angela Laboy PCP - General 07/16/[address] [place] [address] [address] [place] [address] Bebeto Roth MD Orthopedics 07/09/[address] [facility] [place] [address] Astrid Rios PA-C Physician Hazard Mitigation Officer Physician Hazard Mitigation Officer - 07/09/14 Surgical documented as of this encounter
--- OUTSIDE RECORDS SUMMARY | 2022-01-07 14:40 | XMS_ITS | Encounter Summary ---
:1980 Author Organization [place] Address [address] [facility] [place] [address] Care Team Providers Name Role Phone Lisa Dewitt DO Primary Care Provider Reason for Visit Reason Onset Date Comments Refill Request 09/17/2013 Encounter Details Date Type Department Care Team Description 09/17/2013 Refill [facility] Medicine Lisa Dewitt DO Refill Request Clinic [place] [address] [place] [address], [address] [place] [id number] [place] [address] [phone] Social History Tobacco Use Types Packs/Day Years [...] acne documented in this encounter Care Teams Sales And Marketing Administrator Relationship Specialty Start Date End Date Lisa Dewitt DO PCP - General 08/12/13 07/15/14 [facility] [address] [place] [address] documented as of this encounter
--- OUTSIDE RECORDS SUMMARY | 2022-01-07 14:40 | XMS_ITS | Encounter Summary ---
:1980 Author Organization [place] Address [facility] [place] [address] Care Team Providers Name Role Phone Bebeto Roth MD Unavailable Astrid Rios PA-C Unavailable Keri Elias MD Primary Care Provider Unavailable Encounter Details Date Type Department Care Team Description 07/27/2016 Radiant Appointment [facility] Bebeto Roth eled (Error) Center Una Hartman MD [address] [place] [address] [facility] 1st Floor [address] [place] [id number] Social History Tobacco Use Types Packs/Day Years [...] on filedocumented in this encounter Care Teams [place]belt Relationship Specialty Start Date End Date Keri Elias PCP - General Family Practice 03/12/15 9 MD Ira Glez David Wayne, MD Orthopedics 07/09/14 [facility] [place] [address] Astrid Rios PA-C Physician Proofer Black And White Physician Proofer Black And White - 07/09/14 Surgical documented as of this encounter
--- OUTSIDE RECORDS SUMMARY | 2022-01-07 14:40 | XMS_ITS | Encounter Summary ---
:1980 Author Organization [place] Address [address] [facility] [place] [address] Care Team Providers Name Role Phone Bebeto Roth MD Unavailable Astrid Rios PA-C Unavailable Keri Elias MD Primary Care Provider Unavailable Reason for Visit Reason Comments Derm Problem Over Rt Eye X 3 weeks Encounter Details Date Type Department Care Team Description 08/05/2015 Office Visit [facility] Santa Painter M D Dermatitis (Primary Dx); Medicine Clinic XXX RESIGNED XXX Anxiety; [address] [place], [place], [place] Jovanni c attack; [address] [id number] Encounter for medication refill [place], [place] [address] [phone] Social History Tobacco Use Types Packs/Day Years [...] an antihistamine you can buy at drug [facility]. It can make you sleepy, so use [...] on the open blisters ?? Joint pain? [phone] [employer]. [address] [place] [address]. All rights reserved. This information is not [...] No labs done today Assessment and Plan zAul was seen today for derm problem. Diagnoses [...] the final plan. Santa Painter MD G2 [facility] Trousseau Consultant Pager [phone] Payton Franks MD - 08/05/2015 4:19 PM CDT Preceptor Attestation: Patient seen and discussed with the resident. Assessment and plan reviewed with resident and agreedupon. Supervising Physician: Payton Franks MD [facility] documented in this encounter Plan of Treatment Not on filedocumented as of this encounter Visit Diagnoses Diagnosis Dermatitis - Primary Contact dermatitis and other eczema, due to unspecified cause Anxiety Anxiety state, unspecified Panic attack Panic disorder without agoraphobia Encounter for medication refill Issue of repeat prescriptions documented in this encounter Care Teams Factorer Relationship Specialty Start Date End Date Keri Elias PCP - General Family Practice 03/12/15 9 MD Ira Glez David Wayne, MD Orthopedics 07/09/[address] [place] [address] Astrid Rios PA-C Physician Auto Phone Installer Physician Auto Phone Installer - 07/09/14 Surgical documented as of this encounter
--- OUTSIDE RECORDS SUMMARY | 2022-01-07 14:40 | XMS_ITS | Encounter Summary ---
:1980 Author Organization [place] Address [facility] [place] [address] Care Team Providers Name Role Phone Meeta Dewittanda Primary Care Provider Encounter Details Date Type Department Care Team Description 06/05/2014 Radiant Appointment [facility] Bebeto Roth Scoliosis; CYNDI MICHELLE Hartman MD S/P spinal fusion [place] [id number] [place] [address] FLOOR, CLINIC [address] [facility] [address] [place], [place] [phone] (Work) [phone] Social History Tobacco Use Types Packs/Day Years [...] the cervicothoracic junction lying approximately 6 cm seed analysis laboratory assistant ior to the lumbosacral junction. Stable mild [...] the cervicothoracic junction lying approximately 6 cm seed analysis laboratory assistant ior to the lumbosacral junction. Stable mild [...] status documented in this encounter Care Teams County Extension Agent Relationship Specialty Start Date End Date Lisa Dewitt DO PCP - General 08/12/13 07/15/14 [facility] 2019 [place] [address] documented as of this encounter
--- OUTSIDE RECORDS SUMMARY | 2022-01-07 14:40 | XMS_ITS | Encounter Summary ---
:1980 Author Organization [place] Address [facility] [place] [address] Care Team Providers Name Role Phone Lisa Dewitt DO Primary Care Provider Encounter Details Date Type Department Care Team Description 08/14/2013 Orders Only [facility] Lisa Dewitt Contracep tion (Primary Medicine Clinic DO Dx) [address] [place] [address] [address] [place] [address] [place], [place] [phone] [address] Social History Tobacco Use Types Packs/Day Years [...] management documented in this encounter Care Teams Plant Wire Chief Relationship Specialty Start Date End Date Lisa Dewitt DO PCP - General 08/12/13 07/15/14 [facility] [address] [place] [phone] documented as of this encounter
--- OUTSIDE RECORDS SUMMARY | 2022-01-07 14:40 | XMS_ITS | Encounter Summary ---
:1980 Author Organization [place] Address [address] [facility] [place] [address] Care Team Providers Name Role Phone Bebeto Roth MD Unavailable Astrid Rios PA-C Unavailable Keri Elias MD Primary Care Provider Unavailable Reason for Visit Reason Onset Date Comments Appointment 10/14/2016 Encounter Details Date Type Department Care Team Description 10/14/2016 Telephone [facility] Jos Elias, Appointment Clinic [facility] [address], [address] [place], [place] [address] Social History Tobacco Use Types Packs/Day Years [...] on filedocumented in this encounter Care Teams Police Department Secretary Relationship Specialty Start Date End Date Keri Elias PCP - General Family Practice 03/12/15 9 MD Ira Glez David Wayne, MD Orthopedics 07/09/[address] [place] [address] Astrid Rios PA-C Physician Leather Production Machine Operator Physician Leather Production Machine Operator - 07/09/14 Surgical documented as of this encounter
--- OUTSIDE RECORDS SUMMARY | 2022-01-07 14:40 | XMS_ITS | Encounter Summary ---
:1980 Author Organization [place] Address [address] [facility] [address] Care Team Providers Name Role Phone Bebeto Roth MD Unavailable Astrid Rios PA-C Unavailable Keri Elias MD Primary Care Provider Unavailable Reason for Visit Reason Onset Date Comments Refill Request 07/08/2016 Kirsten Encounter Details Date Type Department Care Team Description 07/08/2016 Refill [facility] Jasmin Elias Refill Request (Kirsten) Clinic MD [place] [facility] [address]. [address] [place] [address], [address] [place], [place] [address] Social History Tobacco Use Types [...] phrase .smirefuse and route it to the [facility]INEER pool to inform the patient and the pharmacy. Clementina Curtis CMA Telephone Encounter - Nuzhat oHng - 07/08/2016 4:[address] [facility] Family Medicine phone call message- patient requesting a refill: Full Medication Name: ondansetron (ZOFRAN) tablet 4 mg Pharmacy confirmed as [id number] - [place] - [address] AT [facility] [address] [place] [address] : Yes Additional Comments: Patient was unable [...] message on voice mail? Yes Primary language: Angolan Produce Sorter needed? No Call taken on July 08, 2016 at 4:05 PM by Nuzhat Hong documented in this encounter Plan of Treatment Not on filedocumented as of this encounter Visit Diagnoses Diagnosis Nausea - Primary Nausea alone documented in this encounter Care Teams Last Trimmer Relationship Specialty Start Date End Date Keri Elias PCP - General Family Practice 03/12/15 9 MD Ira Glez David Wayne, MD Orthopedics 07/09/14 [facility] [address] [place] [address] Astrid Rios PA-C Physician Fuel Assembler Physician Fuel Assembler - 07/09/14 Surgical documented as of this encounter
--- OUTSIDE RECORDS SUMMARY | 2022-01-07 14:40 | XMS_ITS | Encounter Summary ---
:1980 Author Organization [place] Address 2450 [facility] [place] [address] Care Team Providers Name Role Phone Bebeto Rtoh MD Unavailable Astrid Rios PA-C Unavailable Keri Elias MD Primary Care Provider Unavailable Reason for Visit Reason Comments Ultrasound Encounter Details Date Type Department Care Team Description 08/03/2016 Orders Only [facility] Shruthi Bland Pregn tyler test Medicine Clinic A positive (Primary Dx) [address] [place] [address] [place] [phone] (Wo rk) Social History Tobacco Use [...] as needed. Patient:Azul Garg : PCP:Keri Elias Physician/Graphic Design Professor: Shruthi Bland Indications: Dating LMP: Patient's last menstrual period was 06/01/2016. Technique: Transabdominal Machine: GE Logiq Pro 5 GESTATION & EMBRYO SURVEY: Location of :Intrauterine Cardiac activity: Present at 183 bpm Yolk Sac: Normal Rt Ovary : Unobserved Lt Ovary : Unobserved Measurements: CRL: 2.63 cm 9 wks 3d Shruthi Bland, [facility] RVT Attestation of Reviewer. I reviewed the [...] as needed. Patient:Azul Garg : PCP:Keri Elias Physician/Graphic Design Professor: Shruthi rojo Indications: Dating LMP: Patient's last menstrual period was 06/01/2016. ?? Technique: Transabdominal Machine: [employer] Logiq Pro 5 GESTATION & EMBRYO SURVEY: Location of :Intrauterine Cardiac activity: Present at 183 bpm Yolk Sac: Normal ? Rt Ovary : Unobserved Lt Ovary : Unobserved Measurements: ? CRL: ??2.63 cm 9 wks 3d Shruthi Bland RDMS RVT Attestation of Reviewer. I reviewed the images and agree with eliu singer interpretation above. August Ontiveros MD Mylene Vieira INTERNAL CONTROLS SPECIALIST REED MAKER IMG US ORDERABLES documented in this encounter Visit Diagnoses Diagnosis test positive - Primary examination or test, positive result documented in this encounter Care Teams Head Of Training And Development Relationship Specialty Start Date End Date Keri Elias PCP - General Family Practice 03/12/15 9 MD Ira Glez David Wayne, MD Orthopedics 07/09/[address] [place] [address] Astrid Rios PA-C Physician Curator Of Education Physician Curator Of Education - 07/09/14 Surgical documented as of this encounter
--- OUTSIDE RECORDS SUMMARY | 2022-01-07 14:40 | XMS_ITS | Encounter Summary ---
:1980 Author Organization [place] Address [facility] [place] [address] Care Team Providers Name Role Phone Bebeto [...] cy test positive (Primary Dx); Medicine Clinic SMOKE INSPECTOR RAFTSMAN Dysuria; [address] [place] [address] nxiety; [address] [place] [address] [phone] (Wo rk) Social History Tobacco Use Types [...] allergies - fluticasone (FLONASE) 50 MCG/ACT spray; [place] 1-2 sprays into both nostrils daily Dispense: 16 g; Refill: 3 5. test positive - HCG Qualitative Urine (UPT) ([facility]) Results for orders placed or performed in visit on 07/04/16 HCG Qualitative Urine (UPT) ([facility]) Result Value Ref Range HCG Qual Urine POSITIVE Negative Thank you for coming to [facility] today. Lab Testing: If you had lab testing today and your results are reassuring or normal they will be mailed to you or sent through [employer] within 7 days. If the lab tests need quick action we will call you with the results. The phone number we will call with results is # [phone] (home) . If this is not the best numberplease call our clinic and change the number. Medication Refills: If you need any refills please call your pharmacy and they will contact us. If you need to knot picker cloth your refill at a new pharmacy, please contact the new pharmacy directly. The new pharmacy will help you get your medications transferred faster. Scheduling: If you have any concerns about today's visit or wish to schedule another appointment please call ouroffice during normal business hours [phone] (8- 5:00 M-F) If a referral was made to a [facility] and you don't get a call from [facility] please call [phone]. If a Mammogram was ordered for you at [facility] call [phone] to schedule or change yourappointment. If you had an XRay/CT/Ultrasound/MRI ordered the number is [phone] to schedule or change your radiology appointment. Medical Concerns: If you have urgent medical concerns please call [phone] at any time of the day. If [...] allergies - fluticasone (FLONASE) 50 MCG/ACT spray; [place] 1-2 sprays into both nostrils daily Options [...] Range Method Time Signature Specimen Midstream Urine [facility] Special Specimen received [place] O F Requests in preservative [facility] Culture Micro 10,000 to 50,000 colonies/mL Jia albicans / dubliniensis Jia albicans and INFECTIOUS Jia dubliniensis are not routinely speciated [facility] eptibility testing not DISEASE routinely done DIAGNOSTIC [...] Code Phon e Number INFECTIOUS DISEASES [address] [place] [address] DIAGNOSTIC LABORATORY, [place] [address] [place] [address] [address], [address] [address], [facility] INFECTIOUS DISEASE [address] [place] [address], [facility] DIAGNOSTIC LABORATORY HCG Qualitative Urine (UPT) ([facility]) (07/04/2016 4:24 PM CDT) athologist Signature HCG Qual Urine POSITIVE Negative [facility] LABDAQ Specimen Anatomical Collection Method Collection Time Receive d Time (Source) Location / / Volume Laterality Urine specimen 07/04/2016 4:24 PM 017 4:25 (specimen) CDT PM CDT Mylene Vieira SMOKE INSPECTOR RAFTSMAN LAB - LABDAQ Performing Organization Address City/State/ZIP Code Phon e Number [facility] [address] [place], [place] [address] LABDAQ documented in this encounter Visit Diagnoses Diagnosis test positive - Primary examination or test, positive result Dysuria Anxiety Anxiety state, unspecified Environmental allergies Allergic rhinitis, cause unspecified documented in this encounter Care Teams Coating Inspector Relationship Specialty Start Date End Date Keri Elias PCP - General Family Practice 03/12/15 9 MD Ira Glez, Bebeto Hartman MD Orthopedics 07/09/14 [facility] [place] [address] [facility] [address] [place] [address] Astrid Rios PA-C Physician Switchgear Repairer Physician Switchgear Repairer - 07/09/14 Surgical documented as of this encounter
--- OUTSIDE RECORDS SUMMARY | 2022-01-07 14:40 | XMS_ITS | Encounter Summary ---
:1980 Author Organization [place] Address [address] [facility] [place] [address] Care Team Providers Name Role Phone Bebeto Roth MD Unavailable Astrid Rios PA-C Unavailable Keri Elias MD Primary Care Provider Unavailable Reason for Visit Reason Onset Date Comments Refill Request 10/03/2016 Ondansetron 4mg Encounter Details Date Type Department Care Team Description 10/03/2016 Refill [facility] Jasmin Elias Refill Request Clinic MD [place] (Ondansetron 4mg) [facility] [address], [address] [place], [place] [address] Social History Tobacco Use Types Packs/Day Years [...] phrase .smirefuse and route it [facility] to inform the patient and the pharmacy. Kristina Stafford documented in this encounter Plan of Treatment Not on filedocumented as of this encounter Visit Diagnoses Diagnosis Nausea Nausea alone documented in this encounter Care Teams Public Health Registrar Relationship Specialty Start Date End Date Keri Elias PCP - General Family Practice 03/12/15 9 MD Ira Glez David Wayne, MD Orthopedics 07/09/[address] [place] [address] Astrid Rios PA-C Physician Senior Drafter Physician Senior Drafter - 07/09/14 Surgical documented as of this encounter
--- OUTSIDE RECORDS SUMMARY | 2022-01-07 14:40 | XMS_ITS | Encounter Summary ---
:1980 Author Organization [place] Address [facility] [place] [address] Care Team Providers Name Role Phone Lisa Dewitt DO Primary Care Provider Reason for Visit Reason Onset Date Comments Other 01/28/2014 scoliosis FU Encounter Details Date Type Department Care Team Description 01/28/2014 Telephone Orthopaedic Clinic Bebeto Roth (scoliosis FU) [facility] MD [facility] [address] [place] [address] Floor, [address] [facility] [address] [phone] [address] [phone] Social History Tobacco Use Types Packs/Day Years [...] will see Astrid snyder tomorrow for eval. TELEPHONIC documented in this encounter Plan of Treatment Not on filedocumented as of this encounter Visit Diagnoses Not on filedocumented in this encounter Care Teams Global Sales Executive Relationship Specialty Start Date End Date Lisa Dewitt DO PCP - General 08/12/13 07/15/14 [facility] [address] [place] [address] documented as of this encounter
--- OUTSIDE RECORDS SUMMARY | 2022-01-07 14:40 | XMS_ITS | Encounter Summary ---
:1980 Author Organization [place] Address [address] [facility] [place] [address] Care Team Providers Name Role Phone Bebeto Roth MD Unavailable Astrid Rios PA-C Unavailable [facility] Primary Care Provider + Reason for Visit [facility] (Routine) - Closed Specialty Diagnoses / Procedures Referred By Contact Refer red To Contact Bebeto Roth MD [facility]ULA [facility] [address] [place] [address] [address] [place], [place] [address] [address] [place] [address] Phone: Fax: Referral ID Status Reason Start Date Expiration Date Visits Requ ested Visits Authorized [facility]/HP/LBP Closed 08/04/2014 02/12/2015 20 18 Encounter Details Date Type Department Care Team Description 08/04/2014 Therapy Visit [place] for Evan Alejandra, Pain in thoracic spine (Primary Dx); Athletic Medicine - PT Other orthopedic aftercare(V54.89); Manjula Costa [facility] Scoliosis PhysicalTherapy [address] [place] [address] [address] [place] [address] Social History Tobacco Use Types Packs/Day [...] 100% Right: 50% Rotation: Left: Right: Side [place]: Left: Right: Strength: sore strength = 4/5, [...] Sheet for this information) Short term and longterm goals: (See Goal Flow Sheet for this [...] Name Priority Date/Time Associated Diagnosis Comme nts [facility] NEUROMUSCULAR Routine 08/07/2014 12:10 PM Pain in thoracic RE-EDUCATION CDT spine Other orthopedic aftercare(V54.89 ) Scoliosis [facility] THERAPEUTIC EXERCISES Routine 08/07/2014 12:10 PM Pain in thoracic CDT spine Other orthopedic aftercare(V54.89 ) Scoliosis documented in this encounter Visit Diagnoses Diagnosis Pain in thoracic spine - Primary Other orthopedic aftercare(V54.89) Other orthopedic aftercare Scoliosis Scoliosis (and kyphoscoliosis), idiopath ic documented in this encounter Care Teams Agricultural Lender Relationship Specialty Start Date End Date Clinic - Angela Laboy PCP - General 07/16/[address] [place] [address] 2019 [place] [address] Bebeto Roth MD Orthopedics 07/09/14 Formerly named [facility] [place], [place] [address] [place] [address] Astrid Rios PA-C Physician Manager Renewable Energy Physician Manager Renewable Energy - 07/09/14 Surgical documented as of this encounter
--- OUTSIDE RECORDS SUMMARY | 2022-01-07 14:41 | XMS_ITS | Encounter Summary ---
:1980 Author Organization [place] Address [address] [facility] [place] [address] Care Team Providers Name Role Phone Caitlin Ballesteros MD Primary Care Provider Reason for Visit Reason Onset Date Comments Head Lice 08/05/2013 Two youngest childre n have lice Encounter Details Date Type Department Care Team Description 08/05/[address] [facility] Caitlin Ballesteros MD Head Lice ([facility] youngest children have [address], PRACTICE lice ) [address] [facility] [place], [place] [address] [place] [address] (Wo rk) Social History Tobacco [...] louse) documented in this encounter Care Teams Bloom Conveyor Operator Relationship Specialty Start Date End Date Caitlin Ballesteros MD PCP - General 10/08/11 08/11/13 documented as of this encounter
--- OUTSIDE RECORDS SUMMARY | 2022-01-07 14:41 | XMS_ITS | Encounter Summary ---
:1980 Author Organization [place] Address [address] [facility] [place] [address] Care Team Providers Name Role Phone Caitlin Ballesteros MD Primary Care Provider Encounter Details Date Type Department Care Team Description 07/02/2013 Orders Only Ear, Nose and Throat Gael Deshpande MD Dizziness (Primary Dx); Clinic ENT [facility]INIC AND Ear pressure, right 8th Floor, Clinic [address]A HEARING [facility] [address] [address] [facility] [address] [place], [place] (Work) [address] [phone] Social History Tobacco Use Types Packs/Day Years [...] right documented in this encounter Care Teams Psychology Instructor Relationship Specialty Start Date End Date Caitlin Ballesteros MD PCP - General 10/08/11 08/11/13 documented as of this encounter
--- OUTSIDE RECORDS SUMMARY | 2022-01-07 14:41 | XMS_ITS | Encounter Summary ---
:1980 Author Organization [place] Address [facility] [place] [address] Care Team Providers Name Role Phone Caitlin Ballesteros MD Primary Care Provider Reason for Visit Reason Comments Minor Procedure [place] has mole/skintag on t he left shoulder and left outer knee Encounter Details Date Type Department Care Team Description 11/22/2012 Office Visit [facility], Dermatofibro ma of [facility] Medicine Clinic Anthony Glez MD thigh (Primary Dx) [address], [address] [place], [place] [address] Social History Tobacco Use Types [...] hear from us, please call us at [phone] and let us know that you haven't received your results. Thank you for coming to [facility]. Lab Testing: If you had lab testing today and your results are reassuring or normal they will be mailed to you or sent through [employer] within 7 days. If the lab tests need quick action we will call you with the results. The phone number we will call with results is # [phone] (home) . If this is not the [...] please call ouroffice during normal business hours [phone] (8- 5:00 M-F) Medical Concerns: If you have urgent medical concerns please call [phone] at any time of the day. If you have a medical emergency please call 911. Again thank you for choosing [facility] and please let us know how [...] of care Supervising Physician: Anthony Elias MD [facility] Caitlin Ballesteros MD - 11/22/2012 1:46 PM CDT [facility] Skin Biopsy Procedure Note Azul Garg [...] Component Value Ref Test Analysis Performed At [facility] gist Range Method Time Signature Copath Report Patient Name: AZUL MCCLELLAN MR#: [id number] Specimen #: [id number] Collected: 11/22/2012 Received: 11/23/2012 Reported: 11/26/2012 13:48 [...] Ajith Acevedo MD/romulo 11/26/12 TESTING LAB LOCATION: [facility] [address] [address] COLLECTION SITE: Client: General acute hospital Location: FA (B) Specimen (Source) Anatomical Collection Method Collection Time Re ceived Time Location / / Volume Laterality Lower limb 11/22/2012 1:30 11/23/2012 8 :36 structure (body PM CDT AM CDT structure) Anthony Elias MD [facility] Organization Address City/State/ZIP Code Phon e Number [place] documented in this encounter Visit Diagnoses Diagnosis Dermatofibroma of left thigh - Primary Benign neoplasm of skin of lower limb, i ncluding hip documented in this encounter Care Teams Flavorings Compounder Relationship Specialty Start Date End Date Caitlin Ballesteros MD PCP - General 10/08/11 08/11/13 documented as of this encounter
--- OUTSIDE RECORDS SUMMARY | 2022-01-07 14:41 | XMS_ITS | Encounter Summary ---
:1980 Author Organization [place] Address [facility] [place] [address] Care Team Providers Name Role Phone Caitlin Ballesteros MD Primary Care Provider Reason for Referral Specialty Diagnoses / Procedures Referred By Contact Refer red To Contact Caitlin Ballesteros MD [address] [place], [place] [address] Referral ID Status Reason Start Date Expiration Date Visits Requ ested Visits Authorized MATIC SCREWMAKER Reason for Visit Reason Comments Knee Pain both knees x 3weeks-no injur y Encounter Details Date Type Department Care Team Description 12/22/2011 Office Visit [facility] Caitlin Ballesteros MD Knee pain, bilateral (Primary Dx); Medicine Clinic [facility] Contraception management; [address], PRACTICE Acne vulgaris [address] [facility] [place] [address] [phone] (Wo rk) Social History Tobacco Use Types Packs/Day Years Used Date Smoking Tobacco: Never Alcohol Use Standard Drinks/Week Comments No 0 (1 standard drink = 0.6 oz pure alcoho l) Sex Assigned at Date Recorded Not on file documented as of this encounter Last Filed Vital Signs Vital Sign Reading Time Taken Comments Blood Pressure 115/85 12/22/2011 2:06 PM AUTOMATIC SCREWMAKER Pulse 97 12/22/2011 2:06 PM AUTOMATIC SCREWMAKER Temperature 36.9 ??C (98.4 ??F) 12/22/2011 2:06 PM AUTOMATIC SCREWMAKER Respiratory Rate 16 12/22/2011 2:06 PM AUTOMATIC SCREWMAKER Oxygen Saturation - - Inhaled Oxygen Concentration - - Weight 68.9 kg (152 lb) 12/22/2011 2:06 PM AUTOMATIC SCREWMAKER Height 156.8 cm (5' 1.75) 12/22/2011 2:06 PM AUTOMATIC SCREWMAKER Body Mass Index 28.03 12/22/2011 2:06 PM AUTOMATIC SCREWMAKER documented in this encounter Patient Instructions Patient InstructionsCaitlin Ballesteros MD - 12/22/2011 6:38 PM CST Thank you for coming to [facility]. If you had lab testing today and your results are reassuring or normal they will be be mailed to you within 7 days. If the lab tests need quick action we will call you with the results. The phone number we will call with results is # [phone] (home) . If this is not the best numberplease call our clinic and change the number. If you need any refills please call your pharmacy and they will contact us. If you have any concerns about today's visit or wish to schedule another appointment please call ouroffice during normal business hours [phone] (8- 5:30 M-F) If you have urgent medical concerns please call [phone] at any time of the day. If you have a medical emergency please call 911 Again thank you for choosing [facility] and please let us know how we can best partner with youto improve your and your family's health. Referred to [facility] [phone] Referral faxed, [facility] to contact patient directly to schedule MATIC SCREWMAKER documented in this encounter Progress Notes Keri Elias MD - 12/22/2011 3:55 PM CST Preceptor Attestation: Patient's case reviewed and discussed with resident and I examined the patient. I agree with writtenassessment and plan of care Supervising Physician: Keri Elias MD MD [facility] MATIC SCREWMAKER Caitlin Ballesteros MD - 12/22/2011 2:25 PM [...] idiopathic scoliosis ??? , subsequent ??? [facility] ??? Acne vulgaris [...] ??? fluticasone (FLONASE) 50 MCG/ACT nasal spray [place] 2 sprays into both nostrils daily. ??? [...] with the final plan. Caitlin Ballesteros MD MATIC SCREWMAKER documented in this encounter Plan of Treatment Scheduled Referrals Name Type Priority Associated Diagnoses Order S jaye PHYSICAL THERAPY REFERRAL Referral Routine Knee pain, bila teral Ordered: 12/22/2011 documented as of this encounter Visit Diagnoses Diagnosis Knee pain, bilateral - Primary Pain in joint, lower leg Contraception management Unspecified contraceptive management Acne vulgaris Other acne documented in this encounter Care Teams Child And Family Services Worker Relationship Specialty Start Date End Date Caitlin Ballesteros MD PCP - General 10/08/11 08/11/13 documented as of this encounter
--- OUTSIDE RECORDS SUMMARY | 2022-01-07 14:41 | XMS_ITS | Encounter Summary ---
:1980 Author Organization [place] Address [facility] [place] [address] Care Team Providers Name Role Phone Caitlin Ballesteros MD Primary Care Provider Reason for Referral Specialty Diagnoses / Procedures Referred By Contact Refer red To Contact Kenton Hicks MD [place] [address] Referral ID Status Reason Start Date Expiration Date Visits Requ ested Visits Authorized Reason for Visit Reason Comments Mass behind ear and knee for abou t a week Encounter Details Date Type Department Care Team Description 11/13/2012 Office Visit [facility] Hicks management (Primary Dx); Medicine Clinic MD Kenton Acne vulgaris; [address] [place] [address] Environmental allergies; [address] [facility] Skin nodule; [place], [place] Skin tag [phone] Social History Tobacco Use Types Packs/Day Years [...] clinic with on 11/22/12 @ 1:00p.m ER HAND documented in this encounter Progress Notes Kenton [...] MICRO IF (LABDAQ) Component Value Range Specific [place] Urine 1.010 1.005 - 1.030 pH Urine [...] Crystal Urine None Bacteria Wet Prep Moderate [facility] Procedure Note Azul Sapna Garg [...] - fluticasone (FLONASE) 50 MCG/ACT nasal spray; [place] 1-2 sprays into both nostrils daily Skin [...] skin documented in this encounter Care Teams Byproducts Pump Operator Relationship Specialty Start Date End Date Caitlin Ballesteros MD PCP - General 10/08/11 08/11/13 documented as of this encounter
--- OUTSIDE RECORDS SUMMARY | 2022-01-07 14:41 | XMS_ITS | Encounter Summary ---
:1980 Author Organization [place] Address [address] [facility] [place] [address] Care Team Providers Name Role Phone Caitlin Ballesteros MD Primary Care Provider Encounter Details Date Type Department Care Team Description 07/02/2013 Office Visit [facility] Michael Deshpande MD ENT CLINIC [facility] [address] [facility] [address] [address] Audiology Zahira Hernandez AuD [address] [place], [place] [phone] 6 [facility] [address] 8th Floor cl inic 8B [facility] [place], [place] [phone] Social History Tobacco Use [...] results. RECOMMENDATIONS: Follow-up with ENT. Tommy Salcedo Shell Press Operator [place] #[id number] documented in this encounter Plan of [...] on filedocumented in this encounter Care Teams Machine Set Up Technician Relationship Specialty Start Date End Date Caitlin Ballesteros MD PCP - General 10/08/11 08/11/13 documented as of this encounter
--- OUTSIDE RECORDS SUMMARY | 2022-01-07 14:41 | XMS_ITS | Encounter Summary ---
:1980 Author Organization [place] Address [address] [place] [address]. [place] [address] Care Team Providers Name Role Phone Caitlin Ballesteros MD Primary Care Provider Reason for Visit Reason Comments Exposure to STD Encounter Details Date Type Department Care Team Description 12/16/2012 Emergency [facility] Roxanne Grider MD Vaginal yeast infection (Primary Dx); Emergency Department [address] [place] [address] Possible exposure to STD [address] [place] [id number] [phone] (Wo rk) Social History Tobacco Use Types [...] Comments Blood Pressure 126/83 12/16/2012 6:29 PM PERSONAL INJURY LAW SPECIALIST Pulse 123 12/16/2012 6:29 PM PERSONAL INJURY LAW SPECIALIST Temperature 36.4 ??C (97.5 ??F) 12/16/2012 6:29 PM PERSONAL INJURY LAW SPECIALIST Respiratory Rate 16 12/16/2012 6:29 PM PERSONAL INJURY LAW SPECIALIST Oxygen Saturation 98% 12/16/2012 6:29 PM PERSONAL INJURY LAW SPECIALIST Inhaled Oxygen Concentration - - Weight - - Height - - Body Mass Index - - documented in this encounter Discharge Instructions Discharge InstructionsRoxanne Grider MD - 12/16/2012 7:42 PM CST Please make an appointment to follow up with Your Primary Care Provider and proofreader--[facility] (phone: ) in 3-7 days even if entirely better. Use Diflucan for yeast infection Use Acyclovir as directed for herpes infection You or Your doctor will need to followup on your herpes virus blood test. ONAL INJURY LAW SPECIALIST AttachmentsThe following attachments cannot be sent through Care Everywhere. VAGINITIS, ISAI (TURKMEN)documented in this encounter Medications at Time of [...] along with other ointment. fluticasone (FLONASE) 50 [place] 1-2 sprays 1 Package 11 11/1308/28/2013 MCG/ACT nasal into both nostrils sprayIndications: daily Environmental allergies fluticasone (FLONASE) 50 [place] 2 sprays into 0 01/01/2013 MCG/ACT nasal [...] Caitlin Ballesteros MD - 12/21/2012 4:47 PM PERSONAL INJURY LAW SPECIALIST Quick Note: Received the result note. Result [...] needs to make an appointment forfurther discussion. ONAL INJURY LAW SPECIALIST documented in this encounter ED Notes Chuyita Gaston RN - 12/16/2012 7:48 PM CST Pt refused vitals ONAL INJURY LAW SPECIALIST Roxanne Grider MD - 12/16/2012 6:35 PM [...] and Surgical History, and Social History inthe JRD Communication system. Review of Systems Constitutional: Negative for [...] ED Course Procedures Critical Care time: none [facility] Diagnoses: None 6:40PM Patient seen and evaluated [...] NEG Ketones Urine Negative NEG mg/dL Specific [place] Urine 1.023 1.003 - 1.035 Blood Urine [...] to follow up with her PMD or client renewal specialist physician next week for culture results and further evaluation and treatment. Addendum: The patient is very concerned about being exposed to herpes. She would prefer that blood testing be done, as her ex-boyfriend will not to talk to her. I spoke with laboratory and will order herpes simplex IgG and IgM with reflux. The patient can follow this result with her PMD or client renewal specialist physician next week. I have reviewed the [...] INadya, am serving as a trained medical communication specialist to document services personally performed by Dr. Cheo MD, based on the provider's statements to me. This document has been checked and approved by the attending provider. December 16, 2012 12/16/2012 [facility], EMERGENCY DEPARTMENT Roxanne Grider MD 12/16/121956 ONAL INJURY LAW SPECIALIST documented in this encounter Plan of Treatment Not on filedocumented as of this encounter Procedures Procedure Name Priority Date/Time Associated Comments Diagnosis HSV 1 AND 2 ANTIBODY Routine 12/16/2012 7:44 PM R esults for this IGG PERSONAL INJURY LAW SPECIALIST procedure are i n the results section. HSV 1 AND 2 IGG IGM STAT 12/16/2012 7:44 PM Re sults for this WITH REFLEX PERSONAL INJURY LAW SPECIALIST procedure are i n the results section. HCG QUALITATIVE URINE STAT 12/16/2012 6:58 PM Results for this POCT PERSONAL INJURY LAW SPECIALIST procedure are i n the results section. WET PREPARATION STAT 12/16/2012 6:48 PM Result s for this PERSONAL INJURY LAW SPECIALIST procedure are i n the results section. URINE MACROSCOPIC STAT 12/16/2012 6:48 PM Resu lts for this WITH REFLEX TO MICRO PERSONAL INJURY LAW SPECIALIST procedu re are in the results section. NEISSERIA GONORRHOEAE STAT 12/16/2012 6:48 PM Results for this PCR PERSONAL INJURY LAW SPECIALIST procedure are i n the results section. CHLAMYDIA TRACHOMATIS STAT 12/16/2012 6:48 PM Results for this PCR PERSONAL INJURY LAW SPECIALIST procedure are i n the results section. documented in this encounter Results HSV 1 and 2 antibody IgG (12/16/2012 7:44 PM PERSONAL INJURY LAW SPECIALIST) athologist Signature HSV 1 IgG PALOMA 24.90 [...] Volume Laterality 12/16/2012 7:44 PM 3 7:47 PERSONAL INJURY LAW SPECIALIST PM PERSONAL INJURY LAW SPECIALIST Roxanne Grider MD LAB - BLOOD ORDERABLES Performing Organization Address City/State/ZIP Code Phon e Number [facility] [address] [place] [address] [place] [facility] MICROBIOLOGY HSV 1 and 2 IgG IgM with reflex (12/16/2012 7:44 PM PERSONAL INJURY LAW SPECIALIST) athologist Signature HSV IgG 5.27 Index [facility] Antibody Value MICROBIOLOGY W/Reflex Comment: Positive Herpes Simplex Virus IgM Antibody 0.43 Index Value [facility] MICROBIOLOGY Comment: No detectable antibody. Specimen Anatomical Collection Method Collection Time Receive d Time (Source) Location / / Volume Laterality Blood specimen 12/16/2012 7:44 PM 013 7:47 (specimen) PERSONAL INJURY LAW SPECIALIST PM PERSONAL INJURY LAW SPECIALIST Roxanne Grider MD LAB - BLOOD ORDERABLES Performing Organization Address City/State/ZIP Code Phon e Number [facility] [address] [place], [place] [id number] [place] [address] [facility] MICROBIOLOGY hCG qual urine POCT (12/16/2012 6:58 PM PERSONAL INJURY LAW SPECIALIST) P athologist Signature HCG Qual Urine negative neg Internal QC OK Yes Specimen (Source) Anatomical Collection Method Collection Time Re ceived Time Location / / Volume Laterality Urine specimen 12/16/2012 6:58 PM (specimen) PERSONAL INJURY LAW SPECIALIST Roxanne Grider MD LAB - ENTER/EDIT POCT (ABNORMAL) UA reflex to microscopic (12/16/2012 6:48 PM PERSONAL INJURY LAW SPECIALIST) [facility] Method Time Signature Color Urine Yellow [facility] [place] [facility] Appearance Urine Slightly [facility] Cloudy [place] [facility] Glucose Urine Negative NEG mg/dL [facility] [place] [facility] Bilirubin Urine Negative NEG [facility] [place] [facility] Ketones Urine Negative NEG mg/dL [facility] [place] [facility] Specific [place] 1.023 1.003 - [facility] Urine 1.035 [place] [facility] Blood Urine Small (A) NEG [facility] [place] [facility] pH Urine 5.5 5.0 - 7.0 [facility] pH [place] [facility] Protein Albumin 10 (A) NEG mg/dL [facility] Urine [place] [facility] Urobilinogen Normal 0.0 - 2.0 [facility] mg/dL mg/dL [place] [facility] Nitrite Urine Negative NEG [facility] [place] [facility] Leukocyte Moderate (A) NEG [facility] Esterase Urine [place] [facility] Source Midstream [facility] Urine [place] [facility] RBC Urine 5 (H) 0 - 2 [facility] /HPF [facility] WBC Urine 9 (H) 0 - 2 [facility] /HPF [place] [facility] Bacteria Urine Few (A) NEG /HPF [facility] [place] [facility] Squamous 4 (H) 0 - 1 [facility] Epithelial /HPF /HPF [place] U[facility] LAB Mucous Urine Present (A) NEG /LPF [facility] [place] [facility] Specimen Anatomical Collection Method Collection Time Receive d Time (Source) Location / / Volume Laterality Urine specimen URINE SPECIMEN 12/16/2012 6:48 PM 12/16 7:01 (specimen) OBTAINED BY CLEAN PERSONAL INJURY LAW SPECIALIST PM PERSONAL INJURY LAW SPECIALIST CATCH PROCEDURE / Unknown Roxanne Grider MD LAB - URINE ORDERABLES Performing Organization Address City/State/ZIP Code Phon e Number [facility] [address] [place] [address] [facility] Chlamydia trachomatis PCR (12/16/2012 6:48 PM PERSONAL INJURY LAW SPECIALIST) Component Value Ref Test Analysis Performed At [facility] Method [place] Signature Specimen Cervix [facility] Description LAB Chlamydia Negative for C. trachomatis rRNA by fish butcher mediated amplification. [facility] Trachomatis A negative result by [...] specimen 12/16/2012 6:48 PM 013 6:59 (specimen) PERSONAL INJURY LAW SPECIALIST PM PERSONAL INJURY LAW SPECIALIST Roxanne Grider MD LAB - MICRO GENERAL ORDERABL ES Performing Organization Address City/State/ZIP Code Phon e Number [facility] [address] [place] [address] [facility] MICROBIOLOGY Neisseria gonorrhoeae PCR (12/16/2012 6:48 PM PERSONAL INJURY LAW SPECIALIST) Component Value Ref Test Analysis Performed At [facility] Method [facility] Specimen Cervix [facility] Descrip LAB N Gonorrhea Negative for N. gonorrhoeae rRNA by fish butcher mediated amplification. [facility] PCR A negative result by [...] specimen 12/16/2012 6:48 PM 013 6:59 (specimen) PERSONAL INJURY LAW SPECIALIST PM PERSONAL INJURY LAW SPECIALIST Roxanne Grider MD LAB - MICRO GENERAL ORDERABL ES Performing Organization Address City/State/ZIP Code Phon e Number [facility] [address] [place] [address] [facility] MICROBIOLOGY Wet prep (12/16/2012 6:48 PM PERSONAL INJURY LAW SPECIALIST) Patholo gist Method Time Signature Specimen Cervix [facility] Description [place] [facility] Wet Prep Many PMNs seen [facility] No clue cells seen [place] No Trichomonas seen LAB No yeast seen Micro Report FINAL [facility] Status 12/16/2012 [place] [facility] Specimen Anatomical Collection Method Collection Time Receive d Time (Source) Location / / Volume Laterality Specimen from 12/16/2012 6:48 PM 12/17/19 13 6:56 vagina PERSONAL INJURY LAW SPECIALIST PM PERSONAL INJURY LAW SPECIALIST (specimen) Roxanne Grider MD LAB - MICRO GENERAL ORDERABL ES Performing Organization Address City/State/ZIP Code Phon e Number [facility] [address] [place], [place] [phone] [place] [address] [facility] documented in this encounter Visit Diagnoses Diagnosis Vaginal yeast infection - Primary Candidiasis of vulva and vagina Possible exposure to STD Other specified personal history present ing hazards to health documented in this encounter Care Teams Supervisor Garment Manufacturing Relationship Specialty Start Date End Date Caitlin Ballesteros MD PCP - General 10/08/11 08/11/13 documented as of this encounter
--- OUTSIDE RECORDS SUMMARY | 2022-01-07 14:41 | XMS_ITS | Encounter Summary ---
:1980 Author Organization [place] Address [address] [facility] [place] [address] Care Team Providers Name Role Phone Caitlin Ballesteros MD Primary Care Provider Reason for Visit Reason Comments Neck Pain patient could not move neck to the left after waking up today. History of TMJ. Encounter Details Date Type Department Care Team Description 02/28/2013 Office Visit [place] Caitlin Ballesteros MD Neck muscle spasm Medicine Clinic [facility] (Primary Dx) [address], PRACT[address] [place] [address] [place] [address] [phone] (Wo rk) Social History Tobacco Use Types [...] Comments Blood Pressure 122/81 02/28/2013 3:00 PM FINANCIAL COMPLIANCE OFFICER Pulse 94 02/28/2013 3:00 PM FINANCIAL COMPLIANCE OFFICER Temperature 36.8 ??C (98.2 ??F) 02/28/2013 3:00 PM FINANCIAL COMPLIANCE OFFICER Respiratory Rate - - Oxygen Saturation 100% 02/28/2013 3:00 PM FINANCIAL COMPLIANCE OFFICER Inhaled Oxygen Concentration - - Weight 70.3 kg (155 lb) 02/28/2013 3:00 PM FINANCIAL COMPLIANCE OFFICER Height 158.8 cm (5' 2.5) 02/28/2013 3:00 PM FINANCIAL COMPLIANCE OFFICER Body Mass Index 27.9 02/28/2013 3:00 PM FINANCIAL COMPLIANCE OFFICER documented in this encounter Patient Instructions Patient InstructionsCaitlin Ballesteros MD - 02/28/2013 3:33 PM CST Thank you for coming to [facility]. If you had lab testing today and your results are reassuring or normal they will be be mailed to you or sent to your MyChart and you will be notified by email within 7 days. If the lab tests need quick action we will call you with the results. The phone number we will call with results is # [phone] (home) (home) . If this is not the best number please call our clinic and change the number. If any referrals were ordered today you should be getting a call in the next week. If you don't hear about this within a week please call one of the following numbers If your referral is for P please call [phone] If your referral is to outside [facility] please call the clinic number ([phone]) and ask for your team care transition manager. If you need any refills please call your pharmacy and they will contact us. If you have any concerns about today's visit or wish to schedule another appointment please call ouroffice during normal business hours [phone] (8- 5:00 M-F) If you have urgent medical concerns please call [phone] at any time of the day. If you have a medical emergency please call [phone] Again thank you for choosing [facility] and please let us know how we can best partner with youto improve your and your family's health. NCIAL COMPLIANCE OFFICER documented in this encounter Progress Notes Joseph Pittman MD - 02/28/2013 5:28 PM CST Preceptor Attestation: Patient seen and discussed with the resident. Assessment and plan reviewed with resident and agreedupon. Supervising Physician: Joseph Pittman MD [facility] Medicine NCIAL COMPLIANCE OFFICER Caitlin Ballesteros MD - 02/28/2013 3:15 PM [...] ??? fluticasone (FLONASE) 50 MCG/ACT nasal spray [place] 1-2 sprays into both nostrils daily ??? [...] with the final plan. Caitlin Ballesteros MD. NCIAL COMPLIANCE OFFICER documented in this encounter Plan of Treatment Not on filedocumented as of this encounter Visit Diagnoses Diagnosis Neck muscle spasm - Primary Spasm of muscle documented in this encounter Care Teams Precision Dancer Relationship Specialty Start Date End Date Caitlin Ballesteros MD PCP - General 10/08/11 08/11/13 documented as of this encounter
--- OUTSIDE RECORDS SUMMARY | 2022-01-07 14:41 | XMS_ITS | Encounter Summary ---
:1980 Author Organization [place] Address [address] [facility] [place] [address] Care Team Providers Name Role Phone Caitlin Ballesteros MD Primary Care Provider Encounter Details Date Type Department Care Team Description 01/08/2013 Telephone [facility] Syd Alvarez MD Clinic [address] [place] [address], [address] [place], [place] [address] Social History Tobacco Use Types [...] disorder documented in this encounter Care Teams Mandolin Repair Person Relationship Specialty Start Date End Date Caitlin Ballesteros MD PCP - General 10/08/11 08/11/13 documented as of this encounter
--- OUTSIDE RECORDS SUMMARY | 2022-01-07 14:41 | XMS_ITS | Encounter Summary ---
:1980 Author Organization [place] Address [facility] [place] [address] Care Team Providers Name Role Phone Caitlin Ballesteros MD Primary Care Provider Reason for Visit Reason Onset Date Comments Refill Request 10/30/2012 Encounter Details Date Type Department Care Team Description 10/30/2012 Refill [facility] Jennifer Ballesteros MD Refill Request Clinic [address] Count includes the [facility] [place], [place] [address] [address] [place] [address] [phone] (Wo rk) Social History Tobacco Use Types Packs/Day Years Used Date Smoking Tobacco: Passive Smoke Exposure - Never Smoker Alcohol Use Standard Drinks/Week Comments No 0 (1 standard drink = 0.6 oz pure alcoho l) Sex Assigned at Date Recorded Not on file documented as of this encounter Miscellaneous Notes Telephone Encounter - Sharad Duque CMA - 10/30/2012 1:11 PM CDT [facility] Family Medicine phone call message- patient requesting a refill: Full Medication Name: minocycline Dose: 100MG tablets Pharmacy confirmed as [facility] [id number] [place] [address] [phone] : Yes Additional Comments: The patient said the pharmacy faxed the refill request Monday in the PM. I let her know I will send high priority message to the nurse to fill today and the pharmacy will call whenit is ready to picking table worker. Thanks! OK to leave a message on voice mail? Yes Primary language: Uzbek Relays Draftsperson needed? No Call taken on October 30, 2012 at 1:11 PM by SHARAD DUQUE documented in this encounter Plan of Treatment Not on filedocumented as of this encounter Visit Diagnoses Diagnosis Acne vulgaris - Primary Other acne documented in this encounter Care Teams Quality Nurse Relationship Specialty Start Date End Date Caitlin Ballesteros MD PCP - General 10/08/11 08/11/13 documented as of this encounter
--- OUTSIDE RECORDS SUMMARY | 2022-01-07 14:41 | XMS_ITS | Encounter Summary ---
:1980 Author Organization [place] Address [address] [facility] [place] [address] Care Team Providers Name Role Phone Caitlin Ballesteros MD Primary Care Provider Lisa Dewitt DO Primary Care Provider Reason for Visit Reason Onset Date Comments Referral 01/04/2013 Mental Health Referr al Encounter Details Date Type Department Care Team Description 01/04/2013 [address]phone [facility] Caitlin Ballesteros MD Referral (Mental Medicine Clinic [facility] Referral) [address] [place] [address], PRACTICE [address] [facility] [place], [place] [address] [address] [place] [address] (Wo rk) Social History Tobacco [...] - 01/04/2013 10:39 AM CST Referral noted ONER Telephone Encounter - Collin Gabriel - 01/04/2013 10:12 AM CST [facility] Family Medicine phone call message- order or referral request for patient: Order or referral being requested: Mental Health Referral Order Details: Patient states she received a phone call regarding the mental health referral for counseling. She states she would [facility] because of their hours. If referral, has the patient been seen for this problem? N/A Additional Comments: OK to leave a message on voice mail? Yes Primary language: Niuean Auto Overhauler needed? No Call taken on January 04, 2013 at 10:12 AM by Collin Gabriel ONER documented in this encounter Plan of Treatment Not on filedocumented as of this encounter Visit Diagnoses Not on filedocumented in this encounter Care Teams Life Sciences Director Relationship Specialty Start Date End Date Caitlin Ballesteros MD PCP - General 10/08/11 08/11/13 Lisa Dewitt DO PCP - General 08/12/13 07/15/14 [place] [address] [place] [address] documented as of this encounter
--- OUTSIDE RECORDS SUMMARY | 2022-01-07 14:41 | XMS_ITS | Encounter Summary ---
:1980 Author Organization [place] Address [facility] [address] Care Team Providers Name Role Phone Caitlin Ballesteros MD Primary Care Provider Reason for Visit Reason Comments Results follow up Encounter Details Date Type Department Care Team Description 12/24/2012 Office Visit [facility] Josiah Johnson Anxiety (Primary Dx) Medicine Clinic [address] [place] [address] Social History Tobacco Use Types [...] Comments Blood Pressure 128/85 12/24/2012 1:33 PM WEED BURNER Pulse 107 12/24/2012 1:33 PM WEED BURNER Temperature 36.8 ??C (98.2 ??F) 12/24/2012 1:33 PM WEED BURNER Respiratory Rate - - Oxygen Saturation 100% 12/24/2012 1:33 PM WEED BURNER Inhaled Oxygen Concentration - - Weight 72.9 kg (160 lb 12.8 oz) 12/24/2012 1:33 PM WEED BURNER Height 160.8 cm (5' 3.3) 12/24/2012 1:33 PM WEED BURNER Body Mass Index 28.22 12/24/2012 1:33 PM WEED BURNER documented in this encounter Patient Instructions Patient InstructionsQuJosiah soto, MD - 12/24/2012 1:59 PM CST Thank you for coming to [facility]. Lab Testing: If you had lab testing today and your results are reassuring or normal they will be mailed to you or sent through [employer] within 7 days. If the lab tests need quick action we will call you with the results. The phone number we will call with results is # [phone] (home) . If this is not the best numberplease call our clinic and change the number. Medication Refills: If you need any refills please call your pharmacy and they will contact us. If you need to miner pick your refill at a new pharmacy, please contact the new pharmacy directly. The new pharmacy will help you get your medications transferred faster. Scheduling: If you have any concerns about today's visit or wish to schedule another appointment please call ouroffice during normal business hours [phone] (8- 5:00 M-F) Medical Concerns: If you have urgent medical concerns please call [phone] at any time of the day. If you have a medical emergency please call 911. Again thank you for choosing [facility] and please let us know how we can best partner with you to improve you and your family's health. BURNER documented in this encounter Progress Notes Josiah [...] Pt was very anxious about her testing. Hasty anxiety and shakiness in her class. Denies [...] fluticasone (FLONASE) 50 MCG/ACT nasal spray Active [place] 1-2 sprays into both nostrils daily ??? benzoyl peroxide 5 % gel Active Use over the areas everyday 1-2 times/daily. Please use it alongwith other ointment. ??? fluticasone (FLONASE) 50 MCG/ACT nasal spray Active [place] 2 sprays into both nostrils daily. Allergies [...] Final Value:Negative for N. gonorrhoeae rRNA by astro technician mediated amplification. A negative result by astro technician mediated amplification does not preclude the presence of N. gonorrhoeae infection because results are dependent on proper and adequate collection, absence of inhibitors, and sufficient rRNA to be detected. ??? Specimen Description 12/16/2012 Cervix Final ??? Chlamydia Trachomatis PCR 12/16/2012 Final Value:Negative for C. trachomatis rRNA by astro technician mediated amplification. A negative result by astro technician mediated amplification does not preclude the [...] 12/16/2012 Negative NEG mg/dL Final ??? Specific [place] Urine 12/16/2012 1.023 1.003 - 1.035 Final [...] anxiety seems situational, not starting her on fdc treatment like SSRI. 2. Herpes Type 1 [...] with the final plan. Josiah Johnson MD BURNER Jazz Duncan MD - 12/24/2012 1:41 PM CST Preceptor Attestation: Patient's case reviewed and discussed with resident and I examined the patient. I agree with writtenassessment and plan of care Supervising Physician: Jazz Duncan MD MD [facility] Medicine BURNER documented in this encounter Plan of Treatment Not on filedocumented as of this encounter Visit Diagnoses Diagnosis Anxiety - Primary Anxiety state, unspecified documented in this encounter Care Teams Branch Operations Manager Relationship Specialty Start Date End Date Caitlin Ballesteros MD PCP - General 10/08/11 08/11/13 documented as of this encounter
--- OUTSIDE RECORDS SUMMARY | 2022-01-07 14:41 | XMS_ITS | Encounter Summary ---
:1980 Author Organization [place] Address [facility] [place] [address] Care Team Providers Name Role Phone Caitlin Ballesteros MD Primary Care Provider Reason for Referral - Closed Specialty Diagnoses / Procedures Referred By Contact Refer red To Contact Diagnoses Anxiety Panic attack Del Alvarez MD [address] [place] [id number] Referral ID Status Reason Start Date Expiration Date Visits Requ ested Visits Authorized [id number] Closed 01/04/2013 07/03/2013 1 1 GN DRAFTSMAN Reason for Visit Reason Comments Recheck Medication Hydroxyzine Encounter Details Date Type Department Care Team Description 01/01/2013 Office Visit [facility] Sonja Alvarez (Emerald cotter Dx); Medicine Clinic MD Del Panic attack [address], [address] [place], [place] [address] Social History Tobacco Use Types [...] Comments Blood Pressure 116/77 01/01/2013 4:04 PM DESIGN DRAFTSMAN Pulse 100 01/01/2013 4:04 PM DESIGN DRAFTSMAN Temperature 36.6 ??C (97.9 ??F) 01/01/2013 4:04 PM DESIGN DRAFTSMAN Respiratory Rate - - Oxygen Saturation 99% 01/01/2013 4:04 PM DESIGN DRAFTSMAN Inhaled Oxygen Concentration - - Weight 72.1 kg (159 lb) 01/01/2013 4:04 PM DESIGN DRAFTSMAN Height 156.7 cm (5' 1.7) 01/01/2013 4:04 PM DESIGN DRAFTSMAN Body Mass Index 29.36 01/01/2013 4:04 PM DESIGN DRAFTSMAN documented in this encounter Patient Instructions Patient InstructionsDel Spencer MD - 01/01/2013 4:46 PM DESIGN DRAFTSMAN [facility]: [phone] [facility] [place] [address] Patient to call to make appt Patients PCP needs to be changed From [facility] to [facility] GN DRAFTSMAN documented in this encounter Progress Notes Figueroa Swain MD - 01/01/2013 4:35 PM CST Preceptor Attestation: Patient's case reviewed and discussed with resident and I examined the patient. I agree with writtenassessment and plan of care Supervising Physician: Figueroa Swain MD MD [facility] GN DRAFTSMAN Del Spencer MD - 01/01/2013 4:23 PM [...] Diagnosis ??? Adolescent idiopathic scoliosis ??? Health Long-Term ??? Acne vulgaris ??? Anxiety ??? Congenital [...] fluticasone (FLONASE) 50 MCG/ACT nasal spray Active [place] 1-2 sprays into both nostrils daily ??? [...] and agreed with the final plan. Del Alvarze. Gagan Aquino's Page: [phone] GN DRAFTSMAN documented in this encounter Plan of Treatment Scheduled Referrals Name Type Priority Associated Diagnoses Order [facility] MENTAL HEALTH REFERRAL Referral Routine Anxiety Ordered: 01/04/2013 Panic attack documented as of this encounter Visit Diagnoses Diagnosis Anxiety - Primary Anxiety state, unspecified Panic attack Panic disorder without agoraphobia documented in this encounter Care Teams Impregnator Relationship Specialty Start Date End Date Caitlin Ballesteros MD PCP - General 10/08/11 08/11/13 documented as of this encounter
--- OUTSIDE RECORDS SUMMARY | 2022-01-07 14:41 | XMS_ITS | Encounter Summary ---
:1980 Author Organization [place] Address [facility] [place] [address] Care Team Providers Name Role Phone Caitlin Ballesteros MD Primary Care Provider Reason for Visit Reason Onset Date Comments Results 12/24/2012 Encounter Details Date Type Department Care Team Description 12/24/2012 Telephone [facility] Jennifer Ballesteros MD Results Clinic [place] [address], [facility] PRACT [address] [place], [place] [address] 7 [place] [address] [phone] (Wo rk) Social History Tobacco Use Types Packs/Day Years Used Date Smoking Tobacco: Passive Smoke Exposure - Never Smoker Smokeless Tobacco: Never Alcohol Use Standard Drinks/Week Comments No 0 (1 standard drink = 0.6 oz pure alcoho l) Sex Assigned at Date Recorded Not on file documented as of this encounter Miscellaneous Notes Telephone Encounter - Madison Nobles LPN - 12/25/2012 11:09 AM MECHANICAL TECHNICAL SERVICE SPECIALIST Patient seen in clinic 12-24-12. Madison Nobles LPN ANICAL TECHNICAL SERVICE SPECIALIST Telephone Encounter - Terrie Link - 12/24/2012 7:58 AM CST [facility] Family Medicine phone call message- [...] message on voice mail? Yes Primary language: [place] Human Resources Compliance Manager needed? No Call taken on December 24, 2012 at 7:58 AM by Terrie Link ANICAL TECHNICAL SERVICE SPECIALIST documented in this encounter Plan of Treatment Not on filedocumented as of this encounter Visit Diagnoses Not on filedocumented in this encounter Care Teams Quirk Sander Relationship Specialty Start Date End Date Caitlin Ballesteros MD PCP - General 10/08/11 08/11/13 documented as of this encounter
--- OUTSIDE RECORDS SUMMARY | 2022-01-07 14:41 | XMS_ITS | Encounter Summary ---
:1980 Author Organization [place] Address [address] [place] [address] Care Team Providers Name Role Phone Caitlin Ballesteros MD Primary Care Provider Reason for Visit Reason Comments Torticollis seen 1 week ago for neck sti ffness, given meds, not getting any better Encounter Details Date Type Department Care Team Description 03/07/2013 Emergency [facility] Rona Perez, initial Emergency Department MD Nan encounter (Primary Dx) [address] [place] [id number] Social History Tobacco Use Types Packs/Day [...] Comments Blood Pressure 126/84 03/07/2013 11:50 AM NOTE TELLER Pulse 88 03/07/2013 11:50 AM NOTE TELLER Temperature 36.5 ??C (97.7 ??F) 03/07/2013 10:49 AM NOTE TELLER Respiratory Rate 16 03/07/2013 11:50 AM NOTE TELLER Oxygen Saturation 98% 03/07/2013 10:49 AM NOTE TELLER Inhaled Oxygen Concentration - - Weight - - Height - - Body Mass Index - - documented in this encounter Discharge Instructions AttachmentsThe following attachments cannot be sent through Care Everywhere.NECK SPASM, NO TRAUMA ([place])documented in this encounter Medications at Time of [...] needed for muscle spasms fluticasone (FLONASE) 50 [place] 1-2 sprays 1 Package 11 11/1308/28/2013 MCG/ACT [...] from the original note were not included. [place] 16 on March 07, 2013 at [...] and Surgical History, and Social History inthe [employer] system. PAST MEDICAL HISTORY: Past Medical History [...] spasms FLUTICASONE (FLONASE) 50 MCG/ACT NASAL SPRAY [place] 1-2 sprays into both nostrils daily IBUPROFEN [...] diaphoretic. ED Course Procedures Patient assessed in [place] ED 16 on March 07, 2013 at [...] encounter IApril, am serving as a trained chief medical technologist to document services personally performedby Nan Perez MD, based on the provider's statements to me. Inan, was physically present and have reviewed and verified the accuracy of this notedocumented by April Porter, chief medical technologist. 03/07/2013 [facility], EMERGENCY DEPARTMENT Nan Perez MD 03/07/13 1140 TELLER documented in this encounter Plan of Treatment Not on filedocumented as of this encounter Visit Diagnoses Diagnosis Cervical strain, initial encounter - Emerald cotter documented in this encounter Care Teams Furnace Loader Relationship Specialty Start Date End Date Caitlin Ballesteros MD PCP - General 10/08/11 08/11/13 documented as of this encounter
--- OUTSIDE RECORDS SUMMARY | 2022-01-07 14:41 | XMS_ITS | Encounter Summary ---
:1980 Author Organization [place] Address [address] [facility] [place] [address] Care Team Providers Name Role Phone Caitlin Ballesteros MD Primary Care Provider Reason for Visit Reason Comments Diarrhea since Monday/ per pt- happ en after workout Syncope during working out Chills Encounter Details Date Type Department Care Team Description 04/04/2013 Office Visit [facility] Family Caitlin Ballesteros MD Contraception (Primary Medicine Clinic [facility]) [address], PRACT[address] [place] [address] [place] [address] [phone] (Wo rk) Social History Tobacco Use Types [...] Comments Blood Pressure 117/79 04/04/2013 1:37 PM HOUSE DIRECTOR Pulse 93 04/04/2013 1:37 PM HOUSE DIRECTOR Temperature 36.4 ??C (97.6 ??F) 04/04/2013 1:37 PM HOUSE DIRECTOR Respiratory Rate - - Oxygen Saturation 100% 04/04/2013 1:37 PM HOUSE DIRECTOR Inhaled Oxygen Concentration - - Weight 70.1 kg (154 lb 9.6 oz) 04/04/2013 1:37 PM HOUSE DIRECTOR Height 158.8 cm (5' 2.5) 04/04/2013 1:37 PM HOUSE DIRECTOR Body Mass Index 27.83 04/04/2013 1:37 PM HOUSE DIRECTOR documented in this encounter Progress Notes Caitlin [...] ??? fluticasone (FLONASE) 50 MCG/ACT nasal spray [place] 1-2 sprays into both nostrils daily ??? [...] I have performed today. Caitlin Ballesteros MD. E DIRECTOR Joseph Pittman MD - 04/04/2013 4:35 PM CST Preceptor Attestation: Patient seen and discussed with the resident. Assessment and plan reviewed with resident and agreedupon. Supervising Physician: Joseph Pittman MD [facility] E DIRECTOR documented in this encounter Plan of Treatment Not on filedocumented as of this encounter Visit Diagnoses Diagnosis Contraception - Primary Unspecified contraceptive management documented in this encounter Care Teams Denture Technician Relationship Specialty Start Date End Date Caitlin Ballesteros MD PCP - General 10/08/11 08/11/13 documented as of this encounter
--- OUTSIDE RECORDS SUMMARY | 2022-01-07 14:41 | XMS_ITS | Encounter Summary ---
:1980 Author Organization [place] Address [address] [place] [address]. [place] [address] Care Team Providers Name Role Phone Andreas Patel MD Primary Care Provider Reason for Visit Reason Comments Contractions every 6-12 minutes, became m ore painful the last two hours Auth/Cert - Closed Specialty Diagnoses / Procedures Referred By Contact Refer red To Contact qualitative field coordinator Diagnoses maternity*vincent: 09/19/2011/labor [id number] [address] [place] [address] Phone: Referral ID Status Reason Start Date Expiration Date Visits Requ ested Visits Authorized [id number] Closed 1 1 Encounter Details Date Type Department Care Team Description 10/04/2011 - Hospital Encounter JOSE CRUZ SERNA Weston, , subsequent (Prima ry Dx); 10/07/[address] [place] [address] [place] [address] [address] [place] [address] Social History Tobacco Use Types [...] from the original note were not included. [facility] Post- Discharge Summary Jocelin Garg Age: [age] year old Date of : 1980 Date of Admission: 10/04/2011 Date of Discharge:: 10/07/2011 Admitting Physician: August Ontiveros MD Discharge Physician: Dr. Boyer. Home clinic: [facility] Admission Diagnoses: Discharge Diagnosis: Normal spontaneous vaginal [...] Discharge Disposition: Discharged to home Miracle Teran,PGY1 [facility]. Attestation: This patient has been seen and evaluated by me, Aditi Boyer MD. Seen and discussed with the resident Dr Teran and Kenia's Team. I agree with the findings and plan in this note. I have reviewed today's vital signs, medications, labs and imaging. Aditi Boyer MD MD [facility] documented in this encounter Discharge Instructions Discharge InstructionsBeto Ordnoez RN - 10/07/2011 1:53 PM CDT [facility] Vaginal Delivery or Discharge Instructions Activity: Go back to your normal activities, except pelvic rest for 6 weeks. Diet: You may eat a regular diet. Drink plenty of fluids. Call your Doctor or Handbag Operator if you have any of these symptoms: [...] [facility] PGY 1 Pager No. [phone] Attestation: This patient has been seen and [...] d/c tomorrow on PPD#2. Valarie Moore MD [facility] Jenae Wilson RN - 10/05/2011 11:06 [...] Primary care provider: Andreas Patel Home Clinic: [facility] On 10/05/2011 at 0542, this 31 year [...] PGY-2 Nurse: KENNY Jonas PGY-2 Family Medicine [facility], [place] Pager : [phone] August Ontiveros MD Faculty [facility] August Ontiveros MD - 10/05/2011 4:08 AM CDT [facility] Intrapartum Progress Note October 05, 2011 [...] AM CDT October 05, 2011 Jocelin Garg [id number] OB Admit History & Physical Ms. Irma Garg is a patient of Andreas Ramsay and partner Amanda from [facility]. She is a 31 year old female [...] normal range. Labs ABO O 04/20/2011 , [id number] Pos 04/20/2011 Hemoglobin Date Value Range Status [...] lactated ringers solution ??? penicillin G potassium [id number] UNIT injection ??? lactated ringers infusion ??? [...] Individualization/Patient-Specific Goal (Adult,OB,Behavioral The patient and/or their veterans contact representative will achieve their patient-specific goals related to the plan of care. The patient-specific goals include: To discharge today. Patient discharged today. Discharge instructions reviewed and home medications given with instruction. Patient verbalized understanding and denied further questions. Plan of Care - Gina Gordon RN - 10/06/2011 9:46 PM CDT Problem: IP GENERAL POC-ADULT,OB,BEHAVIORAL FVCPM Goal: Individualization/Patient-Specific Goal (Adult,OB,Behavioral The patient and/or their veterans contact representative will achieve their patient-specific goals related [...] Individualization/Patient-Specific Goal (Adult,OB,Behavioral The patient and/or their veterans contact representative will achieve their patient-specific goals related [...] Data: Jocelin Garg transferred to [facility] via wheelchair at 830. Baby transferred via [...] Signature Hemoglobin 8.2 (L) 11.7 - 15.7 [facility] g/dL LAB Specimen Anatomical Collection Method Collection Time Receive d Time (Source) Location / / Volume Laterality Blood specimen 10/06/2011 7:42 AM 012 7:57 (specimen) CDT AM CDT Andreas Patel MD LAB - BLOOD ORDERABLES Performing Organization Address City/State/ZIP Code Phon e Number [facility] [address] [place] [address] [facility] documented in this encounter [...] be given until delivery. penicillin G potassium [id number] UNIT inje ction Starting on Mon10/05/11 at [...] discretion. documented in this encounter Care Teams Hogshead Opener Relationship Specialty Start Date End Date Andreas Patel MD PCP - General 10/05/11 10/07/11 [facility] 2019 [place] [address] documented as of this encounter
--- OUTSIDE RECORDS SUMMARY | 2022-01-07 14:41 | XMS_ITS | Encounter Summary ---
:1980 Author Organization [place] Address [address] [facility] [place] [address] Care Team Providers Name Role Phone Renate Lisa Primary Care Provider Reason for Visit Reason Onset Date Comments Refill Request 08/12/2013 Encounter Details Date Type Department Care Team Description 08/12/2013 Telephone [facility] Medicine Jennifer Ballesteros MD Refill Request Clinic [address], PRACTICE [address] [place], [place] [address] [place] [address] [phone] (Wo rk) Social History Tobacco Use Types [...] unspecified documented in this encounter Care Teams Product Support Rep Relationship Specialty Start Date End Date Lisa Dewitt DO PCP - General 08/12/13 07/15/14 [facility] 2019 [place] [address] documented as of this encounter
--- OUTSIDE RECORDS SUMMARY | 2022-01-07 14:41 | XMS_ITS | Encounter Summary ---
:1980 Author Organization [place] Address [facility] [place] [address] Care Team Providers Name Role Phone Caitlin Ballesteros MD Primary Care Provider Reason for Visit Reason Comments Medication Problem contraception Encounter Details Date Type Department Care Team Description 01/14/2013 Office Visit [facility] Josiah Johnson, Lora ption (Primary Dx); Medicine Clinic MD Najera [address] [place] [address] [address] [place], [place] [address] 2019 [place] [address] Social History Tobacco Use Types [...] Comments Blood Pressure 116/80 01/14/2013 3:59 PM FILM CASTING OPERATOR Pulse 95 01/14/2013 3:59 PM FILM CASTING OPERATOR Temperature 36.4 ??C (97.5 ??F) 01/14/2013 3:59 PM FILM CASTING OPERATOR Respiratory Rate - - Oxygen Saturation 98% 01/14/2013 3:59 PM FILM CASTING OPERATOR Inhaled Oxygen Concentration - - Weight 72.1 kg (159 lb) 01/14/2013 3:59 PM FILM CASTING OPERATOR Height 160 cm (5' 3) 01/14/2013 3:59 PM FILM CASTING OPERATOR Body Mass Index 28.17 01/14/2013 3:59 PM FILM CASTING OPERATOR documented in this encounter Progress Notes Keri Elias MD - 01/14/2013 4:35 PM CST Preceptor Attestation: Patient's case reviewed and discussed with resident and I examined the patient. I agree with writtenassessment and plan of care Supervising Physician: Keri Elias MD [facility] CASTING OPERATOR Josiah Johnson MD - 01/14/2013 4:23 PM [...] fluticasone (FLONASE) 50 MCG/ACT nasal spray Active [place] 1-2 sprays into both nostrils daily ??? [...] with the final plan. Josiah Johnson MD CASTING OPERATOR documented in this encounter Plan of Treatment Not on filedocumented as of this encounter Visit Diagnoses Diagnosis Contraception - Primary Unspecified contraceptive management Metrorrhagia documented in this encounter Care Teams Building Maintenance Mechanic Relationship Specialty Start Date End Date Caitlin Ballesteros MD PCP - General 10/08/11 08/11/13 documented as of this encounter
--- OUTSIDE RECORDS SUMMARY | 2022-01-07 14:41 | XMS_ITS | Encounter Summary ---
:1980 Author Organization [place] Address [address] [facility] [place] [address] Care Team Providers Name Role Phone Caitlin Ballesteros MD Primary Care Provider Reason for Visit Reason Comments Pain Bladder frequency, urgency, pain x1 week; took Uristat once per day Encounter Details Date Type Department Care Team Description 06/21/2012 Office Visit [facility] Caitlin Ballesteros MD UTI (urinary tract Medicine Clinic [facility] infection) (Primary [address], PRACTICE Dx) [address] [facility] [place] [phone] (Wo rk) Social History Tobacco Use Types [...] PM CDT Thank you for coming to [facility]. Lab Testing: If you had lab testing today and your results are reassuring or normal they will be mailed to you or sent through [facility] within 7 days. If the lab tests need quick action we will call you with the results. The phone number we will call with results is # [phone] (home) . If this is not the best numberplease call our clinic and change the number. Medication Refills: If you need any refills please call your pharmacy and they will contact us. If you need to picker operator your refill at a new pharmacy, please contact the new pharmacy directly. The new pharmacy will help you get your medications transferred faster. Scheduling: If you have any concerns about today's visit or wish to schedule another appointment please call ouroffice during normal business hours [phone] (8- 5:00 M-F) Medical Concerns: If you have urgent medical concerns please call [phone] at any time of the day. If you have a medical emergency please call 911. Again thank you for choosing [facility] and please let us know how we can best partner with you to improve you and your family's health. documented in this encounter Progress Notes Jazz Duncan MD - 06/21/2012 2:35 PM CDT Preceptor Attestation: Patient's case reviewed and discussed with resident. I agree with written assessment and plan of care Supervising Physician: Jazz Duncan MD MD [facility] Caitlin Ballesteros MD - 06/21/2012 [...] Diagnosis ??? Adolescent idiopathic scoliosis ??? Health Custodial ??? Acne vulgaris ??? Anxiety ??? Congenital [...] ??? fluticasone (FLONASE) 50 MCG/ACT nasal spray [place] 2 sprays into both nostrils daily. ??? loratadine (CLARITIN) 10 MG tablet Take 1 tablet by mouth daily as needed. Allergies Allergen Reactions ??? Seasonal Allergies Results for orders placed in visit on 06/21/12 (from the past 24 hour(s)) URINALYSIS, MICRO IF (LABDAQ) Component Value Range Specific [place] Urine 1.010 1.005 - 1.030 pH Urine [...] in this encounter Results Urine Microscopic (UA) ([facility]) (06/21/2012 2:16 PM CDT) Analysis Performed At Patho logist Time Signature WBC Urine 5-10 /hpf [facility] RBC Urine None /hpf [facility] Epithelial 2-5 /lpf [facility] Cells UR CLINIC LAB Mucous Urine None [facility] Casts Urine None /lpf [facility] Crystal Urine None /lpf [facility] Bacteria Wet Moderate [facility] Prep CLINIC LAB Specimen Anatomical Collection Method Collection Time Receive d Time (Source) Location / / Volume Laterality Urine specimen 06/21/2012 2:16 PM 013 2:16 (specimen) CDT PM CDT Jazz Duncan MD LAB - LABDAQ Performing Organization Address City/State/ZIP Code Phon e Number [facility] [address] [place] [phone] LABDAQ [facility] [address] [place] [phone] Urine culture (06/21/2012 2:08 PM CDT) Component Value Ref Test Analysis Performed At Patholo gist Range Method Time Signature Specimen Midstream Urine [facility] Special Specimen received [facility] Requests in preservative MICROBIOLOGY Culture [...] Phon e Number [facility] [address] [place] [address] [facility] FUM MICROBIOLOGY (ABNORMAL) Urinalysis, Micro If (UA) ([facility]) (06/21/2012 2:08 PM CDT) [facility] Method Time Signature Specific [place] 1.010 1.005 [facility] U[facility] 1.030 CLINIC LAB pH Urine 6.5 4.5 - 8.0 [facility] Leukocyte 500/ul 2+ [facility] Esterase UR (A) CLINIC LAB Nitrite Urine neg [facility] Protein UR neg [facility] CLINIC LAB Glucose Urine norm [facility] CLINIC LAB Ketones Urine neg [facility] Urobilinogen norm [facility] mg/dL CLINIC LAB Bilirubin UR neg [facility] Blood UR neg [facility] Specimen Anatomical Collection Method Collection Time Receive d Time (Source) Location / / Volume Laterality Urine specimen 06/21/2012 2:08 PM 013 2:08 (specimen) CDT PM CDT Caitlin Ballesteros MD LAB - LABDAQ Performing Organization Address City/State/ZIP Code Phon e Number [facility] [address] [place] [phone] LABDAQ [facility] [address] [place] [phone] documented in this encounter Visit Diagnoses Diagnosis UTI (urinary tract infection) - Primary Urinary tract infection, site not specif ied documented in this encounter Care Teams Assistant Boiler Operator Relationship Specialty Start Date End Date Caitlin Ballesteros MD PCP - General 10/08/11 08/11/13 documented as of this encounter
--- OUTSIDE RECORDS SUMMARY | 2022-01-07 14:41 | XMS_ITS | Encounter Summary ---
:1980 Author Organization [place] Address [address] [facility] [place] [address] Care Team Providers Name Role Phone Andreas Patel MD Primary Care Provider Caitlin Ballesteros MD Primary Care Provider Lisa Dewitt DO Primary Care Provider Bebeto Roth MD Unavailable Astrid Rios PA-C Unavailable [facility] Primary Care Provider + Keri Elias MD Primary Care Provider Unavailable Francisco Metz MD Primary Care Provider [phone] Francisco Metz MD Unavailable [phone] Kenton Katz MD Unavailable Unavailable Karen Veliz DO Primary Care Provider Kenton Katz MD Unavailable Unavailable Karen Veliz DO Unavailable Encounter Details Date Type Department Care Team Description 10/06/2011 Office Visit-P INTERFACE P DEPT Greta Patel v, MD [facility] 2019 [place], [place] [id number] (Wo rk) Social History Tobacco Use Types Packs/Day Years Used Date Smoking Tobacco: Never Alcohol Use Standard Drinks/Week Comments No 0 (1 standard drink = 0.6 oz pure alcoho l) Sex Assigned at Date Recorded Not on file documented as of this encounter Progress Notes Andreas Patel MD - 10/06/2011 1:20 PM CDT Dial Polisher: AmandaJason parkurav Status: Signed Encounter: 2011-10-06 13:20:00.000 Type: FM Visit Reason For Visit This 31 year patient presents for {{{[ ]}}}[ preventive health visit ][ diabetes visit ]. {{{Speaker Wirer used this visit; [ Hmong ][ Sri Lankan ][ Russian ][ Oromo ][ Maltese ][ Other: ]}}} {{{Name of power lineman technician [ ]. Speaker Wirer's Phone number: [ [phone] ][ [phone] ][ [phone] ][ [phone] ]-[ ]-[ ] }}} {{{Minor without Guardian. Verbal consent obtained from [ Mother ] [ Father ] [ ] by front window cashier staff [ ]. Contact number: [ [phone] ] [ [phone] ] [ [phone] ][ [phone] ] [ ] }}} {{{PHQ2 completed and [...] bring in immunization record. ] [ sign FRAKNY for records. ]}}} {{{[ Patient is at [...] OB BIOPHYS PROFILE W/O NST Principal Result Speaker Wirer: OSWALDO ARRIAGA PROFESSOR&& Biophysical profile. 09/30/11. Comparisons: [...] and agree with the findings. Performed at: [facility]. Plan {{{Patient participated in and [ agrees ][ disagrees ] with today's plan.}}} {{{Patient's family participated in and [ agree ][ disagree ] with today's plan.}}} {{{Patient and family participated in and [ agree ][ disagree ] with today's plan.}}}. Signature Signed By: Andreas Patel M.D.,Resident; 10/10/2011 11:03 AM MENTAL HEALTH TECHNICIAN. documented in this encounter Plan of Treatment Not on filedocumented as of this encounter Visit Diagnoses Not on filedocumented in this encounter Care Teams Multimedia Designer Relationship Specialty Start Date End Date Andreas Patel MD PCP - General 10/05/11 10/07/11 [facility] [address] [place] [phone] Caitlin Ballesteros MD PCP - General 10/08/11 08/11/13 Lisa Dewitt DO PCP - General 08/12/13 07/15/14 [facility] [address] [place] [phone] Clinic - [facility] PCP - General 07/16/14 03/11/15 [facility] [address] [place] [address] Keri Elias PCP - General Family Practice 03/12/15 9 MD Isaías Glez Mitchell PCP - General Family Practice 11/14/18 04/02/20 MD Stevie Karen Veliz, PCP - General Family Medicine 04/03/20 [address] [place] [address] (Fax) Bebeto Roth MD Orthopedics 07/09/14 [facility] [place] [address] Astrid Rios PA-C Physician Director Electronics Physician Director Electronics - 07/09/14 Surgical Francisco Metz Assigned PCP 07/04/19 02/01/20 MD Steive [place] [address] [place]UCIO [address] Kenton Katz Assigned PCP 02/02/20 08/27/20 MD Feliberto NO INFO AVAILABLE Kenton Katz Assigned Endocrinology 08/28/20 07/23/21 MD Feliberto Provider NO INFO AVAILABLE Karen Veliz, Assigned PCP 08/28/20 DO 2019 [address] [place] [address] documented as of this encounter
--- OUTSIDE RECORDS SUMMARY | 2022-01-07 14:41 | XMS_ITS | Encounter Summary ---
:1980 Author Organization [place] Address [address] [facility] [place] [address] Care Team Providers Name Role Phone Caitlin Ballesteros MD Primary Care Provider Reason for Visit Reason Onset Date Comments Pre Visit Planning - Done 06/26/2013 Encounter Details Date Type Department Care Team Description 06/26/2013 PRE VISIT Ear, Nose and Throat Gael Deshpande MD Pre Visit Planning - Clinic ENT CLINIC AND Done 8th Floor, Clinic 8A HEARING CTR [facility] [address] [address] [facility] [place] [address] Social History Tobacco Use Types [...] have you been seen for this condition? [facility] Where and what testing has been done including: None ENT related surgeries in the past: No After the phone call: Request medical records: No From where: What date: Who did you speak to: Is the information already in the EMR? Yes Inform pt in case of any questions call Fabi at [phone]. documented in this encounter Plan of Treatment Not on filedocumented as of this encounter Visit Diagnoses Not on filedocumented in this encounter Care Teams Library Technician Relationship Specialty Start Date End Date Caitlni Ballesteros MD PCP - General 10/08/11 08/11/13 documented as of this encounter
--- OUTSIDE RECORDS SUMMARY | 2022-01-07 14:41 | XMS_ITS | Encounter Summary ---
:1980 Author Organization [place] Address [address] [facility] [place] [address] Care Team Providers Name Role Phone Caitlin Ballesteros MD Primary Care Provider Reason for Visit Reason Comments Abstract Encounter Details Date Type Department Care Team Description 12/19/2011 Abstract [facility] Abstract, Provider [address], [address] [place], [place] [address] Social History Tobacco Use Types Packs/Day Years Used Date Smoking Tobacco: Never Alcohol Use Standard Drinks/Week Comments No 0 (1 standard drink = 0.6 oz pure alcoho l) Sex Assigned at Date Recorded Not on file documented as of this encounter Plan of Treatment Not on filedocumented as of this encounter Visit Diagnoses Not on filedocumented in this encounter Care Teams Armature Winder Repair Helper Relationship Specialty Start Date End Date Caitlin Ballesteros MD PCP - General 10/08/11 08/11/13 documented as of this encounter
--- OUTSIDE RECORDS SUMMARY | 2022-01-07 14:41 | XMS_ITS | Encounter Summary ---
:1980 Author Organization [place] Address [facility] [place] [address] Care Team Providers Name Role Phone Caitlin Ballesteros MD Primary Care Provider Reason for Visit Reason Comments Contraception Encounter Details Date Type Department Care Team Description 04/03/[address] [facility] Caitlin Ballesteros MD Contraception (Primary Dx); Medicine Clinic [facility] Depo-Provera contraceptive s tatus [address], PRACTICE [address] [place] [address] [place] [address] [phone] (Wo rk) Social History Tobacco Use Types [...] Comments Blood Pressure 112/76 04/03/2012 2:40 PM COAL SCREENER Pulse 106 04/03/2012 2:40 PM COAL SCREENER Temperature 36.4 ??C (97.6 ??F) 04/03/2012 2:40 PM COAL SCREENER Respiratory Rate - - Oxygen Saturation 100% 04/03/2012 2:40 PM COAL SCREENER Inhaled Oxygen Concentration - - Weight 71.9 kg (158 lb 9.6 oz) 04/03/2012 2:40 PM COAL SCREENER Height 157.5 cm (5' 2) 04/03/2012 2:40 PM COAL SCREENER Body Mass Index 29.01 04/03/2012 2:40 PM COAL SCREENER documented in this encounter Patient Instructions Patient InstructionsCaitlin Ballesteros MD - 04/03/2012 2:57 PM CST Thank you for coming to [facility]. If you had lab testing today and your results are reassuring or normal they will be be mailed to you within 7 days. If the lab tests need quick action we will call you with the results. The phone number we will call with results is # [phone] (home) . If this is not the best numberplease call our clinic and change the number. If you need any refills please call your pharmacy and they will contact us. If you have any concerns about today's visit or wish to schedule another appointment please call ouroffice during normal business hours [phone] (8- 5:30 M-F) If you have urgent medical concerns please call [phone] at any time of the day. If you have a medical emergency please call 911 Again thank you for choosing [facility] and please let us know how we can best partner with youto improve your and your family's health. SCREENER documented in this encounter Progress Notes Keri Elias MD - 04/03/2012 3:06 PM CST Preceptor Attestation: Patient's case reviewed and discussed with resident. I agree with written assessment and plan of care Supervising Physician: Keri Elias MD MD [facility] Medicine SCREENER Caitlin Ballesteros MD - 04/03/2012 2:48 PM [...] Diagnosis ??? Adolescent idiopathic scoliosis ??? [facility] ??? Acne vulgaris ??? Anxiety ??? Congenital [...] mL into the muscle every 3 months. SCREENER documented in this encounter Plan of Treatment Not on filedocumented as of this encounter Procedures Procedure Name Priority Date/Time Associated Diagnosis Comme nts HCG QUALITATIVE Routine 04/03/2012 3:04 PM Contraception Resul ts for this URINE (LABDAQ) COAL SCREENER procedure are in the results section. documented in this encounter Results HCG Qualitative Urine (UPT) (Narda) (04/03/2012 3:04 PM COAL SCREENER) P athologist Signature HCG Qual Urine NEGATIVE [facility] Specimen Anatomical Collection Method Collection Time Receive d Time (Source) Location / / Volume Laterality Urine specimen 04/03/2012 3:04 PM 013 3:04 (specimen) COAL SCREENER PM COAL SCREENER Caitlin Ballesteros MD LAB - LABDAQ Performing Organization Address City/State/ZIP Code Phon e Number [facility] [address] [place] [phone] LABDAQ [facility] [address] [place] [address] documented in this encounter Visit Diagnoses Diagnosis Contraception - Primary Unspecified contraceptive management Depo-Provera contraceptive status Surveillance of other previously prescri bed contraceptive method documented in this encounter Care Teams Jd Edwards Relationship Specialty Start Date End Date Caitlin Ballesteros MD PCP - General 10/08/11 08/11/13 documented as of this encounter
--- OUTSIDE RECORDS SUMMARY | 2022-01-07 14:41 | XMS_ITS | Encounter Summary ---
:1980 Author Organization [place] Address [address] [facility] [place] [address] Care Team Providers Name Role Phone Caitlin Ballesteros MD Primary Care Provider Reason for Visit Reason Comments Consult Ear issues and Dizziness Encounter Details Date Type Department Care Team Description 07/02/2013 Office Visit Ear, Nose and Throat Gael Deshpande MD Nasal congestion (Primary Dx); Clinic ENT CLINIC AND Dysfunction of eustachian tu be, bilateral 8th Floor, Clinic 8A HEARING CTR [facility] [address] [address] [facility] [phone] [place], [place] (Work) [address] [phone] Social History Tobacco Use Types Packs/Day Years [...] the clinic sooner with questions or concerns: [phone]. documented in this encounter Progress Notes Michael Deshpande MD - 07/02/2013 2:01 PM CDT Dear Caitlin Alexandra: I had the pleasure of meeting Azul Garg in consultation today at the [facility] at your request. HISTORY [...] intake form (for the remainder of the [facility]) which I reviewedand signed. Past Medical History [...] l documented in this encounter Care Teams Distribution Sales Manager Relationship Specialty Start Date End Date Caitlin Ballesteros MD PCP - General 10/08/11 08/11/13 documented as of this encounter
--- OUTSIDE RECORDS SUMMARY | 2022-01-07 14:41 | XMS_ITS | Encounter Summary ---
:1980 Author Organization [place] Address [address] [facility] [place] [address] Care Team Providers Name Role Phone Caitlin Ballesteros MD Primary Care Provider Reason for Visit Reason Onset Date Comments Other 07/10/2013 Encounter Details Date Type Department Care Team Description 07/10/2013 Telephone [facility] Jennifer Ballesteros MD Other Clinic [place] [address], [facility] PRACT [address] [place], [place] [address] [place] [address] [phone] (Wo rk) Social History Tobacco Use Types [...] voice mail? Yes Primary language: Citizen Of [place] Senior Production Planner needed? No Call taken on July 10, 2013 at 3:30 PM by Valarie Haji documented in this encounter Plan of Treatment Not on filedocumented as of this encounter Visit Diagnoses Not on filedocumented in this encounter Care Teams Cyber Analyst Relationship Specialty Start Date End Date Caitlin Ballesteros MD PCP - General 10/08/11 08/11/13 documented as of this encounter
--- OUTSIDE RECORDS SUMMARY | 2022-01-07 14:42 | XMS_ITS | Encounter Summary ---
:1980 Author Organization [place] Address [address] [place] [address] Care Team Providers Name Role Phone Unavailable [...] Navarro MD - 04/28/2011 5:23 PM CDT Core Manager: Radha Navarro Status: Amended, Final Encounter: 28 Apr 2011 Type: FM Letters Autosend Letters Ms. AZUL TELLEZ [address] [place] [address] April 28, 2011 Dear Ms. AZUL TELLEZ [...] CHPCR Negative for C. trachomatis rRNA by homicide detective mediated amplification. A negative result by homicide detective mediated amplification does not preclude the presence of C. trachomatis infection because results are dependent on proper and adequate collection, absence of inhibitors, and sufficient rRNA to be detected. N gnorrhoeae PCR 20 Apr 2011 04:32 PM - N gonorrhoeae PCR Specimen Description Cervical GCPCR Negative for N. gonorrhoeae rRNA by homicide detective mediated amplification. A negative result by homicide detective mediated amplification does not preclude the presence of N. gonorrhoeae infection because results are dependent on proper and adequate collection, absence of inhibitors, and sufficient rRNA to be detected. Cytopathology 20 Apr 2011 12:00 AM - Cytopathology PAP NIL Acc#: [id number] Signed: 04/22/2011 13:01 MR#: [id number] SPECIMEN/STAIN PROCESS: Pap imaged thin layer prep [...] adenocarcinomas or other cancers. TESTING LAB LOCATION: [facility], [address] [address], Processed and screened at [facility], [facility]. Orders Clotrimazole 1 % Cream ([place]);INSERT 1 APPLICATORFUL INTRAVAGINALLY AT BEDTIME NIGHTLY; Qty10; R0; Rx Amended By: Radha Navarro ; 04/28/2011 5:25 PM SALES PROJECT MANAGER. Signature Signed By: Radha Navarro MD,Resident; 04/28/2011 5:24 PM SALES PROJECT MANAGER; Author. Signed By: Radha Navarro MD,Resident; 04/28/2011 5:29 PM SALES PROJECT MANAGER; Author. documented in this encounter Plan of Treatment Not on filedocumented as of this encounter Visit Diagnoses Not on filedocumented in this encounter
--- OUTSIDE RECORDS SUMMARY | 2022-01-07 14:42 | XMS_ITS | Encounter Summary ---
:1980 Author Organization [place] Address [address] [facility] [place] [address] Care Team Providers Name Role Phone Andreas Patel MD Primary Care Provider Caitlin aBllesteros MD Primary Care Provider Lisa Dewitt DO Primary Care Provider Bebeto Roth MD Unavailable Astrid Rios PA-C Unavailable [facility] Primary Care Provider + Keri Elias MD Primary Care Provider Unavailable Francisco Metz MD Primary Care Provider [phone] Francisco Metz MD Unavailable [phone] Kenton Katz MD Unavailable Unavailable Karen Veliz DO Primary Care Provider Kenton Katz MD Unavailable Unavailable Karen Veliz DO Unavailable Encounter Details Date Type Department Care Team Description 09/30/2011 [facility] Only [facility] Angela [place] [address] [place] [phone] Social History Tobacco Use [...] on filedocumented in this encounter Care Teams Tobacco Checkout Clerk Relationship Specialty Start Date End Date Andreas Patel MD PCP - General 10/05/11 10/07/11 [facility] [address] [place] [address] Caitlin Ballesteros MD PCP - General 10/08/11 08/11/13 Lisa Dewitt DO PCP - General 08/12/13 07/15/14 [facility] [address] [place] [address] Clinic - [facility] PCP - General 07/16/14 03/11/15 [facility] [address] [place] [address] Keri Elias PCP - General Family Practice 03/12/15 9 MD Isaías Glez Mitchell PCP - General Family Practice 11/14/18 04/02/20 MD Stevie Karen Veliz, PCP - General Family Medicine 04/03/20 [address] [place] [address] Bebeto Roth MD Orthopedics 07/09/14 [facility] [facility] [address] [place] [address] Astrid Rios PA-C Physician Plan Rep Physician Plan Rep - 07/09/14 Surgical Francisco Metz Assigned PCP 07/04/19 02/01/20 MD Stevie [place] [address] [address] [place] [address] Kenton Katz Assigned PCP 02/02/20 08/27/20 MD Feliberto NO INFO AVAILABLE Kenton Katz Assigned Endocrinology 08/28/20 07/23/21 MD Feliberto Provider NO INFO AVAILABLE Karen Veliz, Assigned PCP 08/28/20 DO 2019 [place] [address] documented as of this encounter
--- OUTSIDE RECORDS SUMMARY | 2022-01-07 14:42 | XMS_ITS | Encounter Summary ---
:1980 Author Organization [place] Address [facility] [place] [address] Care Team Providers Name Role Phone Unavailable Primary Care Provider Unavailable Encounter Details Date Type Department Care Team Description 04/20/2011 Results Only [facility] Radha De La Fuente [address] MD [place], [place] [phone] Social History Tobacco Use Types Packs/Day Years Used Date Smoking Tobacco: Never Assessed Sex Assigned at Date Recorded Not on file documented as of this encounter Plan of Treatment Not on filedocumented as of this encounter Procedures Procedure Name Priority Date/Time Associated Diagnosis Comme nts RUBELLA ANTIBODY Routine 04/20/2011 4:32 PM Resul ts for this IGG SAMPLING EXPERT procedure are i n the results section. documented in this encounter Results Rubella antibody IgG (04/20/2011 4:32 PM SAMPLING EXPERT) P athologist Signature Rubella PALOMA 48 IU/mL [facility] IgG CAMP[facility] LABS Comment: Interpretation: Positive, Immun e Specimen Anatomical Collection Method Collection Time Receive d Time (Source) Location / / Volume Laterality 04/20/2011 4:32 PM 2 4:37 SAMPLING EXPERT PM SAMPLING EXPERT Radha Navarro MD LAB - BLOOD ORDERABLES Performing Organization Address City/State/ZIP Code Phon e Number [facility] [address] [place] [address] [facility] documented in this encounter Visit Diagnoses Not on filedocumented in this encounter
--- OUTSIDE RECORDS SUMMARY | 2022-01-07 14:42 | XMS_ITS | Encounter Summary ---
:1980 Author Organization [place] Address [address] [facility] [place] [address] Care Team Providers Name Role Phone Andreas Patel MD Primary Care Provider Caitlin Pozo MD Primary Care Provider Lisa Dewitt DO Primary Care Provider Bebeto Roth MD Unavailable Astrid Rios PA-C Unavailable [facility] Primary Care Provider + Keri Elias MD Primary Care Provider Unavailable Francisco Metz MD Primary Care Provider [phone] Francisco Metz MD Unavailable [phone] Kenton Katz MD Unavailable Unavailable Karen Veliz DO Primary Care Provider Kenton Katz MD Unavailable Unavailable Karen Veliz DO Unavailable Encounter Details Date Type Department Care Team Description 09/01/2011 Office Visit-[facility] INTERFACE [facility] DEPT Social History Tobacco Use Types Packs/Day Years Used Date Smoking Tobacco: Never Assessed Sex Assigned at Date Recorded Not on file documented as of this encounter Progress Notes SY UMP ULTRASOUND - 09/01/2011 2:00 PM CDT Tank Charger: ADOLFO CURRY Status: Amended, Final Encounter: 2011-09-01 14:00:00.000 Type: FM Ultrasound Active Problems Acne Vulgaris (706.1) Anxiety (300.00) Care Coordinated By; Tier 0 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 US 2nd & 3rd Trimester Ultrasound Report Primary MD: Dr Pozo Compensation Intern: Latesha Harley Indications: Growth on prev. u/s = 5% P: 2 Machine: Empiribox 5 Pro FHR: 152 bpm Fluid:Normal TJ: [...] By: August Ontiveros ; 09/07/2011 2:51 PM PRODUCT SUPPORT REP. Signature Signed By: Latesha Harley ; 09/01/2011 2:51 PM PRODUCT SUPPORT REP. Signed By: August Ontiveros M.D.; 09/07/2011 2:51 PM PRODUCT SUPPORT REP; Author. UCT SUPPORT REP documented in this encounter Plan of Treatment Not on filedocumented as of this encounter Visit Diagnoses Not on filedocumented in this encounter Care Teams Wire Fence Erector Relationship Specialty Start Date End Date Andreas Patel MD PCP - General 10/05/11 10/07/11 [facility] 2019 [place] [address] Caitlin Pozo MD PCP - General 10/08/11 08/11/13 Lisa Dewitt DO PCP - General 08/12/13 07/15/14 [facility] [address] [place], [place] [id number] Clinic - [facility], PCP - General 07/16/14 03/11/15 [facility] 2019 [place] [address] Keri Elias PCP - General Family Practice 03/12/15 9 MD Isaías Glez Mitchell PCP - General Family Practice 11/14/18 04/02/20 MD Stevie Karen Veliz, PCP - General Family Medicine 04/03/20 DO 2019 [place] [address] Bebeto Roth MD Orthopedics 07/09/14 [facility] [place] [address] Astrid Rios PA-C Physician Post Exchange Manager Physician Post Exchange Manager - 07/09/14 Surgical Francisco Metz Assigned PCP 07/04/19 02/01/20 MD Stevie [address] [address] Kenton Katz Assigned PCP 02/02/20 08/27/20 MD Feliberto NO INFO AVAILABLE Kenton Katz Assigned Endocrinology 08/28/20 07/23/21 MD Feliberto Provider NO INFO AVAILABLE Karen Veliz, Assigned PCP 08/28/20 DO [address] [place], [place] [phone] documented as of this encounter
--- OUTSIDE RECORDS SUMMARY | 2022-01-07 14:42 | XMS_ITS | Encounter Summary ---
:1980 Author Organization [place] Address [address] [facility] [place] [address] Care Team Providers Name Role Phone Unavailable Primary Care Provider Unavailable Encounter Details Date Type Department Care Team Description 09/30/2011 Hospital Encounter M [facility] Cindy Pope MD Imaging [facility] [address] [facility] [place], [place] [address] [facility] [phone] [place] [address] (Wo rk) Social History Tobacco [...]
--- OUTSIDE RECORDS SUMMARY | 2022-01-07 14:42 | XMS_ITS | Encounter Summary ---
:1980 Author Organization [place] Address [address] [place] [address] Care Team Providers Name Role Phone Andreas Patel MD Primary Care Provider Caitlin Ballesteros MD Primary Care Provider Lisa Dewitt DO Primary Care Provider Bebeto Roth MD Unavailable Astrid Rios PA-C Unavailable [facility] Primary Care Provider + Keri Elias MD Primary Care Provider Unavailable Francisco Metz MD Primary Care Provider [phone] Francisco Metz MD Unavailable [phone] Kenton Katz MD Unavailable Unavailable Karen Veliz DO Primary Care Provider Kenton Katz MD Unavailable Unavailable Karen Veliz DO Unavailable Encounter Details Date Type Department Care Team Description 09/08/2011 Office Visit-P INTERFACE P DEPT Greta Patel v, MD [facility] 2019 [place] [address] (Wo rk) Social History Tobacco Use Types Packs/Day Years Used Date Smoking Tobacco: Never Assessed Sex Assigned at Date Recorded Not on file documented as of this encounter Progress Notes Andreas Patel MD - 09/08/2011 3:00 PM CDT Cardiac Rehab Nurse: Andreas Patel Status: Amended, Unsigned Encounter: 2011-09-08 15:00:00.000 Type: FM Ultrasound [facility] documented in this encounter Plan of Treatment Not on filedocumented as of this encounter Visit Diagnoses Not on filedocumented in this encounter Care Teams Lipcoat Sprayer Relationship Specialty Start Date End Date Andreas Patel MD PCP - General 10/05/11 10/07/11 [facility] [address] [place] [address] Caitlin Ballesteros MD PCP - General 10/08/11 08/11/13 Lisa Dewitt DO PCP - General 08/12/13 07/15/14 [facility] [address] [place] [address] [facility] PCP - General 07/16/14 03/11/15 [facility] [address] [place] [address] Keri Elias PCP - General Family Practice 03/12/15 9 MD Isaías Glez Mitchell PCP - General Family Practice 11/14/18 04/02/20 MD Stevie Karen Veliz PCP - General Family Medicine 04/03/20 DO [address] [place] [address] Bebeto Roth MD Orthopedics 07/09/14 [facility] [place] [place] [address] [place] [address] Astrid Rios PA-C Physician Anesthesiologist/Physician Physician Anesthesiologist/Physician - 07/09/14 Surgical Francisco Metz Assigned PCP 07/04/19 02/01/20 MD [place] [address] [place] [address] [place] [address] Kenton Katz Assigned PCP 02/02/20 08/27/20 MD Feliberto NO INFO AVAILABLE Kenton Katz Assigned Endocrinology 08/28/20 07/23/21 MD Feliberto Provider NO INFO AVAILABLE Karen Veliz, Assigned PCP 08/28/20 DO 2019 [place] [address] documented as of this encounter
--- OUTSIDE RECORDS SUMMARY | 2022-01-07 14:42 | XMS_ITS | Encounter Summary ---
:1980 Author Organization [place] Address [address] [facility] [place] [address] Care Team Providers Name Role Phone Andreas Patel MD Primary Care Provider Caitlin Ballesteros MD Primary Care Provider Lisa Dewitt DO Primary Care Provider Bebeto Roth MD Unavailable Astrid Rios PA-C Unavailable [facility] Primary Care Provider + Keri Elias MD Primary Care Provider Unavailable Francisco Metz MD Primary Care Provider [phone] Francisco Metz MD Unavailable [phone] Kenton Katz MD Unavailable Unavailable Karen Veliz DO Primary Care Provider Kenton Katz MD Unavailable Unavailable Karen Veliz DO Unavailable Encounter Details Date Type Department Care Team Description 09/26/2011 Office Visit-[facility] INTERFACE [facility] DEPT Social History Tobacco Use Types Packs/Day Years Used Date Smoking Tobacco: Never Alcohol Use Standard Drinks/Week Comments No 0 (1 standard drink = 0.6 oz pure alcoho l) Sex Assigned at Date Recorded Not on file documented as of this encounter Progress Notes SY UMP ULTRASOUND - 09/26/2011 2:07 PM CDT Decorative Engraver: ADOLFO CURRY Status: Unsigned Encounter: 2011-09-26 14:07:00.000 [...] on filedocumented in this encounter Care Teams Welcome Center Attendant Relationship Specialty Start Date End Date Andreas Patel MD PCP - General 10/05/11 10/07/11 [facility] 2019 [place] [address] Caitlin Ballesteros MD PCP - General 10/08/11 08/11/13 Lisa Dewitt DO PCP - General 08/12/13 07/15/14 [facility] [address] [place], [place] [id number] Clinic - [facility], PCP - General 07/16/14 03/11/15 [facility] 2019 [place] [address] Keri Elias PCP - General Family Practice 03/12/15 9 MD Isaías Glez Mitchell PCP - General Family Practice 11/14/18 04/02/20 MD Stevie Karen Veliz, PCP - General Family Medicine 04/03/20 DO 2019 [place] [address] Bebeto Roth MD Orthopedics 07/09/14 [facility] [place] [address] Astrid Rios PA-C Physician Chief Bank Examiner Physician Chief Bank Examiner - 07/09/14 Surgical Francisco Metz Assigned PCP 07/04/19 02/01/20 MD Stevie [address] [address] Kenton Katz Assigned PCP 02/02/20 08/27/20 MD Feliebrto NO INFO AVAILABLE Kenton Katz Assigned Endocrinology 08/28/20 07/23/21 MD Feliberto Provider NO INFO AVAILABLE Karen Veliz, Assigned PCP 08/28/20 DO 2019 [place] [address] documented as of this encounter
--- OUTSIDE RECORDS SUMMARY | 2022-01-07 14:42 | XMS_ITS | Encounter Summary ---
:1980 Author Organization [place] Address [address] [facility] [place] [address] Care Team Providers Name Role Phone Unavailable Primary Care Provider Unavailable Encounter Details Date Type Department Care Team Description 09/22/2011 Hospital Encounter M [facility] Juanis Boyer, Birth[facility] MD [address] [place] [address] 9944 [facility] [phone] [place] [address] (Wo rk) Social History Tobacco [...] handout). * Call your doctor or nurse fire protection fabricator if your baby is moving less than [...] from the original note were not included. [facility] 1st Ob notel Azul Garg Age: [age] year old Date of : 1980 Date of Admission: 09/22/2011 5:00 PM History of Present Illness (Resident / Clinician): Azul Garg is a patient of Dr. Loja from [facility]. She is a 31 year old [id number] is 39+0w with VINCENT 09/29/2011 that is consistent with 04/28/2011 dating ultrasound, as patient is unsure about her LMP. [facility]- when patient complained of decreased movement over [...] Value: Negative for C. trachomatis rRNA by manager application mediated amplification. A negative result by manager application mediated amplification does not preclude the presence of C. trachomatis infection because results are dependent on proper and adequate collection, absence of inhibitors, and suffi cient rRNA to be detected. 06/21/2011 GCPCRT Value: Negative for N. gonorrhoeae rRNA by manager application mediated amplification. A negative result by manager application mediated amplification does not preclude the presence of N. gonorrhoeae infection because results are dependent on proper and adequate collection, absence of inhibitors, and suffi cient rRNA to be detected. 06/21/2011 TREPAB Negative 04/20/2011 RUBELLAABIGG 48 04/20/2011 HGB 9.5* 10/16/2009 HIV Negative 04/20/2011 GBS Value: Positive: GBS DNA detected, presumed positive for GBS. Assay performed on incubated broth culture of specimen using WildcardCycler(R) real-time PCR. 09/08/2011 Obstetrical History: She is [...] notify Dr. Patel or Dr. Patel from [facility] Miracle Teran MD [facility] Family Medicine PGY 1 Pager No. [phone] documented in this encounter H&P Notes Unknown, [...] big movements). Denies rom/bldg/regular contractions.I: EFM and Switzer MD cynthia notified of pt arrival A: [...]
--- OUTSIDE RECORDS SUMMARY | 2022-01-07 14:42 | XMS_ITS | Encounter Summary ---
:[address] Address [address] [facility] [place] [address] Care Team Providers Name Role Phone Unavailable Primary Care Provider Unavailable Encounter Details Date Type Department Care Team Description 04/20/2011 Historic Results [facility] Leanne Navarro [place] MD Андрей [address] [place] [address] [place] [address] Social History Tobacco Use Types Packs/Day Years Used Date Smoking Tobacco: Never Assessed Sex Assigned at Date Recorded Not on file documented as of this encounter Plan of Treatment Not on filedocumented as of this encounter Procedures Procedure Name Priority Date/Time Associated Comments Diagnosis WET PREP (LABDAQ) Routine 04/20/2011 4:36 PM Resu lts for this DIRECTOR OF LOGISTICS procedure are i n the results section. URINALYSIS(LABDAQ) Routine 04/20/2011 4:36 PM Res ults for this DIRECTOR OF LOGISTICS procedure are i n the results section. HEMOGLOBIN (HGB) Routine 04/20/2011 4:36 PM Resul ts for this (LABDAQ) DIRECTOR OF LOGISTICS procedure are i n the results section. HCG QUALITATIVE URINE Routine 04/20/2011 3:20 PM Results for this (LABDAQ) DIRECTOR OF LOGISTICS procedure are i n the results section. documented in this encounter Results (ABNORMAL) Hemoglobin (HGB) (LabDAQ) (04/20/2011 4:36 PM DIRECTOR OF LOGISTICS) P athologist Signature Hemoglobin 10.9 (L) 11.7 - UMP HISTORICAL 15.7 g/dl RESULTS Specimen Anatomical Collection Method Collection Time Receive d Time (Source) Location / / Volume Laterality 04/20/2011 4:36 PM 2 4:36 DIRECTOR OF LOGISTICS PM DIRECTOR OF LOGISTICS Radha Navarro MD LAB - LABDAQ Performing Organization Address [facility]/ZIP Code Phon e Number UMP HISTORICAL RESULTS (ABNORMAL) Urinalysis(LabDAQ) (04/20/2011 4:36 PM DIRECTOR OF LOGISTICS) [facility] Method Time Signature Specific [place] 1.025 1.005 - UMP HISTORICA L Urine [...] Volume Laterality 04/20/2011 4:36 PM 2 4:36 DIRECTOR OF LOGISTICS PM DIRECTOR OF LOGISTICS Radha Navarro MD LAB - LABDAQ Performing Organization Address [facility]/ZIP Code Phon e Number UMP HISTORICAL RESULTS Wet Prep (LabDAQ) (04/20/2011 4:36 PM DIRECTOR OF LOGISTICS) [facility] Method Time [facility] Yeast Wet Prep Present UMP HISTORICAL RESULTS [...] Volume Laterality 04/20/2011 4:36 PM 2 4:36 DIRECTOR OF LOGISTICS PM DIRECTOR OF LOGISTICS Radha Navarro MD LAB - LABDAQ Performing Organization Address City/[facility]/ZIP Code Phon e Number UMP HISTORICAL RESULTS HCG Qualitative Urine (LabDAQ) (04/20/2011 3:20 PM DIRECTOR OF LOGISTICS) [facility] Signature HCG Qual Urine POSITIVE UMP HISTORICAL RESULTS Specimen Anatomical Collection Method Collection Time Receive d Time (Source) Location / / Volume Laterality 04/20/2011 3:20 PM 2 3:20 DIRECTOR OF LOGISTICS PM DIRECTOR OF LOGISTICS Radha Navarro MD LAB - LABDAQ Performing Organization Address City/State/ZIP Code Phon e Number UMP HISTORICAL RESULTS documented in this encounter Visit Diagnoses Not on filedocumented in this encounter
--- OUTSIDE RECORDS SUMMARY | 2022-01-07 14:42 | XMS_ITS | Encounter Summary ---
:1980 Author Organization [place] Address [address] [place] [address] Care Team Providers Name Role Phone Unavailable Primary Care Provider Unavailable Encounter Details Date Type Department Care Team Description 09/08/2011 Results Only INTERFACED REPORT Andreas Patel MD [facility] [address] [place], [place] [id number] (Wo rk) Social History Tobacco Use Types [...] General Hospital Range Method Time Signature Specimen Vaginal [...] Phon e Number [facility] [address] [place] [address] [facility] MICROBIOLOGY documented in this encounter Visit Diagnoses Not on filedocumented in this encounter
--- OUTSIDE RECORDS SUMMARY | 2022-01-07 14:42 | XMS_ITS | Encounter Summary ---
:1980 Author Organization [place] Address [address] [place] [address] Care Team Providers Name Role Phone Unavailable Primary Care Provider Unavailable Encounter Details Date Type Department Care Team Description 07/19/2011 Historic Results [facility] Leanne Navarro [place] MD Андрей [address] [place], [place] [phone] (Work) [place] [address] Social History Tobacco Use Types Packs/Day Years [...] 1 Hr (LabDAQ) (07/19/2011 10:56 AM CDT) [facility] gist Method Time Signature Glu Gest [...]
--- OUTSIDE RECORDS SUMMARY | 2022-01-07 14:42 | XMS_ITS | Encounter Summary ---
:1980 Author Organization [place] Address [facility] [place] [address] Care Team Providers Name Role Phone Unavailable Primary Care Provider Unavailable Encounter Details Date Type Department Care Team Description 09/08/2011 Historic Results [facility] Andreas Patel MD Clinic [facility] [address] [place] [address], [address] [place] [address] [phone] (Wo rk) Social History Tobacco Use Types [...]
--- OUTSIDE RECORDS SUMMARY | 2022-01-07 14:42 | XMS_ITS | Encounter Summary ---
:1980 Author Organization [place] Address [address] [place] [address]. [place] [address] Care Team Providers Name Role Phone Unavailable Primary Care Provider Unavailable Reason for Visit (Routine) - Closed Specialty Diagnoses / Procedures Referred By Contact Refer red To Contact Radiology Diagnoses US OB 2-3 TRIMESTER* Procedure Notes: POSITIVE TEST,SIZES, DATES Ur Ultrasound Procedures RADIOLOGY [address] [place] [phone] Phone: Referral ID Status Reason Start Date Expiration Date Visits Requ ested Visits Authorized [id number] Closed 04/26/2011 04/25/2012 1 1 Encounter Details Date Type Department Care Team Description 04/28/2011 Hospital Encounter [facility] Radha Navarro sitive [facility] Imaging MD Андрей test [address] [place] [address] [employer] (Work) [place] [address] Social History Tobacco Use Types [...]
--- OUTSIDE RECORDS SUMMARY | 2022-01-07 14:42 | XMS_ITS | Encounter Summary ---
:1980 Author Organization [place] Address [address] [facility] [place] [address] Care Team Providers Name Role Phone Andreas Patel MD Primary Care Provider Caitlin Ballesteros MD Primary Care Provider Lisa Dewitt DO Primary Care Provider Bebeto Roth MD Unavailable Astrid Rios PA-C [facility] Primary Care Provider + Keri Elias MD Primary Care Provider Unavailable Francisco Metz MD Primary Care Provider [phone] Francisco Metz MD Unavailable [phone] Kenton Katz MD Unavailable Unavailable Karen Veliz DO Primary Care Provider Kenton Katz MD Unavailable Unavailable Karen Veliz DO Unavailable Encounter Details Date Type Department Care Team Description 04/21/2011 Orders Only M [facility] Radha Pierce ositive test Imaging (Primary Dx) [address] [place] [address] Social History Tobacco Use Types Packs/Day Years Used Date Smoking Tobacco: Never Assessed Sex Assigned at Date Recorded Not on file documented as of this encounter Plan of Treatment Not on filedocumented as of this encounter Visit Diagnoses Diagnosis Positive test - Primary examination or test, positive result documented in this encounter Care Teams Payroll And Benefits Coordinator Relationship Specialty Start Date End Date Andreas Patel MD PCP - General 10/05/11 10/07/11 [facility] [address] [place] [id number] Caitlin Ballesteros MD PCP - General 10/08/11 08/11/13 Lisa Dewitt DO PCP - General 08/12/13 07/15/14 [facility] [address] [place] [id number] Clinic - [facility] PCP - General 07/16/14 03/11/15 [facility] [address] [place] [address] Keri Elias PCP - General Family Practice 03/12/15 9 MD Isaías Glez Mitchell PCP - General Family Practice 11/14/18 04/02/20 MD Stevie Karen Veliz, PCP - General Family Medicine 04/03/20 [address] [place] [address] Bebeto Roth MD Orthopedics 07/09/14 [facility] [place]note 2][address] [place] [address] Astrid Rios PA-C Physician Clinical Nutritionist Physician Clinical Nutritionist - 07/09/14 Surgical Francisco Metz Assigned PCP 07/04/19 02/01/20 MD Stevie [place] [address] [place] [address] Kenton Katz Assigned PCP 02/02/20 08/27/20 MD Feliberto NO INFO AVAILABLE Kenton Katz Assigned Endocrinology 08/28/20 07/23/21 MD [place] Provider NO INFO AVAILABLE Karen Veliz, Assigned PCP 08/28/20 DO 2019 [place] [address] documented as of this encounter
--- OUTSIDE RECORDS SUMMARY | 2022-01-07 14:42 | XMS_ITS | Encounter Summary ---
:1980 Author Organization [place] Address [address] [facility] [place] [address] Care Team Providers Name Role Phone Andreas Patel MD Primary Care Provider Caitlin Ballesteros MD Primary Care Provider Lisa Dewitt DO Primary Care Provider Bebeto Roth MD Unavailable Astrid Rios PA-C Unavailable [facility] Primary Care Provider + Keri Elias MD Primary Care Provider Unavailable Francisco Metz MD Primary Care Provider [phone] Francisco Metz MD Unavailable [phone] Kenton Katz MD Unavailable Unavailable Karen Veliz DO Primary Care Provider Kenton Katz MD Unavailable Unavailable Karen Veliz DO Unavailable Encounter Details Date Type Department Care Team Description 06/23/2011 Office Visit-[facility] INTERFACE P DEPT Social History Tobacco Use Types Packs/Day Years Used Date Smoking Tobacco: Never Assessed Sex Assigned at Date Recorded Not on file documented as of this encounter Progress Notes SY UMP ULTRASOUND - 06/23/2011 9:10 AM CDT Substation Operator Automatic: ADOLFO CURRY Status: Amended, Final Encounter: 2011-06-23 09:10:00.000 Type: FM Ultrasound Active Problems Acne Vulgaris (706.1) Anxiety (300.00) Care Coordinated By; Tier 0 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 US 2nd & 3rd Trimester Ultrasound Report Primary MD: Dr Navarro [place] Layup Line Back Feeder: Latesha Harley Indications: survey P: 2 Machine: [employer] 5 Pro FHR: 138 bpm Fluid:Normal Placenta [...] By: August Ontiveros ; 06/27/2011 3:10 PM REPAIR SERVICER. Signature Signed By: Latesha Harley ; 06/23/2011 9:48 AM REPAIR SERVICER. Signed By: August Ontiveros M.D.; 06/27/2011 3:11 PM REPAIR SERVICER; Author. IR SERVICER documented in this encounter Plan of Treatment Not on filedocumented as of this encounter Visit Diagnoses Not on filedocumented in this encounter Care Teams Patient Safety Manager Relationship Specialty Start Date End Date Andreas Patel MD PCP - General 10/05/11 10/07/11 [facility] [address] [place] [address] Caitlin Ballesteros MD PCP - General 10/08/11 08/11/13 Lisa Dewitt DO PCP - General 08/12/13 07/15/14 [facility] [address] [place] [address] [facility] PCP - General 07/16/14 03/11/15 [facility] [address] [place] [address] Keri Elias PCP - General Family Practice 03/12/15 9 MD Isaías Glez Mitchell PCP - General Family Practice 11/14/18 04/02/20 MD Stevie Karen Veliz PCP - General Family Medicine 04/03/20 [address] [place] [address] Bebeto Roth MD Orthopedics 07/09/[address] [place], [place] [address] Astrid Rios PA-C Physician School Bus Dispatcher Physician School Bus Dispatcher - 07/09/14 Surgical Francisco Metz Assigned PCP 07/04/19 02/01/20 MD Stevie [place] [address] [place] [address] Kenton Katz Assigned PCP 02/02/20 08/27/20 MD Feliberto NO INFO AVAILABLE Kenton Katz Assigned Endocrinology 08/28/20 07/23/21 MD Feliberto Provider NO INFO AVAILABLE Karen Veliz, Assigned PCP 08/28/202019 [place] [address] documented as of this encounter
--- OUTSIDE RECORDS SUMMARY | 2022-01-07 14:42 | XMS_ITS | Encounter Summary ---
:1980 Author Organization [place] Address [facility] [place] [address] Care Team Providers Name Role Phone Unavailable Primary Care Provider Unavailable Encounter Details Date Type Department Care Team Description 04/20/2011 Results Only [facility] Radha De La Fuente [address] [facility] MD Андрей [place], [place] [phone] Social History Tobacco Use Types Packs/Day Years Used Date Smoking Tobacco: Never Assessed Sex Assigned at Date Recorded Not on file documented as of this encounter Plan of Treatment Not on filedocumented as of this encounter Procedures Procedure Name Priority Date/Time Associated Diagnosis Comme nts URINE CULTURE Routine 04/20/2011 4:32 PM Results for this [facility] procedure are i n the results section . documented in this encounter Results Urine culture (04/20/2011 4:32 PM [facility]) Component Value Ref Test Analysis Performed At [facility] Range Method Time Signature Specimen Midstream Urine [facility] Description MICROBIOLOGY Special Specimen received [facility] Requests in preservative MICROBIOLOGY Culture Micro 10 to 50,000 colonies/mL Mixed gram positive teresa [facility] Multiple species present, probable perineal contamination. MICROBIOLOGY Susceptibility testing not routinely done Micro Report FINAL 04/21/2011 [facility] Status MICROBIOLOGY Specimen Anatomical Collection Method Collection Time Receive d Time (Source) Location / / Volume Laterality 04/20/2011 4:32 PM 2 4:37 [facility] PM [facility] Radha Navarro MD LAB - MICRO GENERAL ORDERABL ES Performing Organization Address City/State/ZIP Code Phon e Number [facility] [address] [place] [address] [place] [facility] MICROBIOLOGY documented in this encounter Visit Diagnoses Not on filedocumented in this encounter
--- OUTSIDE RECORDS SUMMARY | 2022-01-07 14:42 | XMS_ITS | Encounter Summary ---
:1980 Author Organization [place] Address [facility] [place] [address] Care Team Providers Name Role Phone Unavailable Primary Care Provider Unavailable Encounter Details Date Type Department Care Team Description 04/20/2011 Results Only [facility]AND[facility] Radha Navarro [address] [facility] MD Андрей [place], [place] [phone] Social History Tobacco Use Types Packs/Day Years Used Date Smoking Tobacco: Never Assessed Sex Assigned at Date Recorded Not on file documented as of this encounter Plan of Treatment Not on filedocumented as of this encounter Procedures Procedure Name Priority Date/Time Associated Diagnosis Comme nts HIV 1 AND 2 Routine 04/20/2011 4:32 PM Results f or this ANTIBODY (QUEST) [employer] procedure a re in the results section. documented in this encounter Results HIV 1 and 2 Antibody (04/20/2011 4:32 PM [employer]) Analysis Performed At Patho logist Time Signature HIV 1&2 Negative NEG [facility] Antibody [facility] Specimen Anatomical Collection Method Collection Time Receive d Time (Source) Location / / Volume Laterality 04/20/2011 4:32 PM 2 4:37 [employer] PM [employer] Radha Navarro MD LAB - BLOOD ORDERABLES Performing Organization Address City/State/ZIP Code Phon e Number [facility] [address] [place] [address] [facility] documented in this encounter Visit Diagnoses Not on filedocumented in this encounter
--- OUTSIDE RECORDS SUMMARY | 2022-01-07 14:42 | XMS_ITS | Encounter Summary ---
:1980 Author Organization [place] Address [facility] [place] [address] Care Team Providers Name Role Phone Unavailable Primary Care Provider Unavailable Encounter Details Date Type Department Care Team Description 04/20/2011 Results Only [facility] PHYS Radha De La Fuente [address] [facility] MD Андрей [place], [place] [phone] Social History Tobacco Use Types Packs/Day Years Used Date Smoking Tobacco: Never Assessed Sex Assigned at Date Recorded Not on file documented as of this encounter Plan of Treatment Not on filedocumented as of this encounter Procedures Procedure Name Priority Date/Time Associated Diagnosis Comme nts ANTI TREPONEMA Routine 04/20/2011 4:32 PM Results for this BILLING CLERK procedure are i n the results section . documented in this encounter Results Anti treponema EIA (04/20/2011 4:32 PM BILLING CLERK) Analysis Performed At Patho logist Time Signature Treponema Negative NEG [facility] Antibody [facility] Specimen Anatomical Collection Method Collection Time Receive d Time (Source) Location / / Volume Laterality 04/20/2011 4:32 PM 201 2 4:37 BILLING CLERK PM BILLING CLERK Radha Navarro MD LAB - BLOOD ORDERABLES Performing Organization Address City/State/ZIP Code Phon e Number [facility] [address] [place] [address] [facility] documented in this encounter Visit Diagnoses Not on filedocumented in this encounter
--- OUTSIDE RECORDS SUMMARY | 2022-01-07 14:42 | XMS_ITS | Encounter Summary ---
:1980 Author Organization [place] Address [address] [place] [address] Care Team Providers Name Role Phone Unavailable Primary Care Provider Unavailable Encounter Details Date Type Department Care Team Description 06/21/2011 Historic Results [facility] Leanne Navarro [place] MD Андрей [address] [place], [place] [phone] (Work) [place] [address] Social History Tobacco Use Types Packs/Day Years [...] Wet Prep (LabDAQ) (06/21/2011 4:05 PM CDT) [facility] Method Time Signature Yeast Wet Prep [...]
--- OUTSIDE RECORDS SUMMARY | 2022-01-07 14:42 | XMS_ITS | Encounter Summary ---
:1980 Author Organization [place] Address [facility] [place] [address] Care Team Providers Name Role Phone Unavailable Primary Care Provider Unavailable Encounter Details Date Type Department Care Team Description 09/08/2011 Results Only INTERFACED REPORT Andreas Patel MD [facility] [address] [place] [address] (Wo rk) Social History Tobacco [...] B strep PCR (09/08/2011 4:47 PM CDT) [facility] Method Time Signature Group B Strep Vaginal [facility] PCR Spec Fahad Rectal Group B Strep Positive: GBS DNA detected, presumed positive for GBS. [facility] PCR Assay performed on incubated broth culture of specimen [facility] [place] MICROBIOLOGY SmartCycler(R) real-time PCR. Specimen Anatomical Collection Method Collection Time Receive d Time (Source) Location / / Volume Laterality 09/08/2011 4:47 PM 2 4:52 CDT PM CDT Andreas Patel MD LAB - MICRO GENERAL ORDERABL ES Performing Organization Address City/State/ZIP Code Phon e Number [facility] [address] [place] [address] [facility] MICROBIOLOGY documented in this encounter Visit Diagnoses Not on filedocumented in this encounter
--- OUTSIDE RECORDS SUMMARY | 2022-01-07 14:42 | XMS_ITS | Encounter Summary ---
:1980 Author Organization [place] Address [facility] [place] [address] Care Team Providers Name Role Phone Unavailable Primary Care Provider Unavailable Encounter Details Date Type Department Care Team Description 06/21/2011 Results Only [facility] PHYS Radha De La Fuente 500 [facility] MD Андрей [place], [place] [address] [phone] Social History Tobacco Use Types Packs/Day Years [...] Value Ref Test Analysis Performed At [facility] Range Method Time Signature Specimen Cervical [facility] Descrip N Gonorrhea Negative for N. gonorrhoeae rRNA by local company tanker driver mediated amplification. [facility] PCR A negative result [...] City/State/ZIP Code Phon e Number [facility] [address] [address] [facility] documented in this encounter Visit Diagnoses Not on filedocumented in this encounter
--- OUTSIDE RECORDS SUMMARY | 2022-01-07 14:42 | XMS_ITS | Encounter Summary ---
:1980 Author Organization [place] Address [address] [facility] [place] [address] Care Team Providers Name Role Phone Unavailable Primary Care Provider Unavailable Encounter Details Date Type Department Care Team Description 08/04/2011 Historic Results [facility] Leanne Navarro [place] MD Андрей [address] [place] [address] [place] [address] Social History Tobacco Use Types Packs/Day Years [...] 1 Hr (LabDAQ) (08/04/2011 12:00 PM CDT) [facility] gist Method Time Signature Glu Gest [...]
--- OUTSIDE RECORDS SUMMARY | 2022-01-07 14:42 | XMS_ITS | Encounter Summary ---
:1980 Author Organization [place] Address [address] [facility] [place] [address] Care Team Providers Name Role Phone Andreas Patel MD Primary Care Provider Caitlin Ballesteros MD Primary Care Provider Lisa Dewitt DO Primary Care Provider Bebeto Roth MD Unavailable Astrid Rios PA-C Unavailable [facility] Primary Care Provider + Keri Elias MD Primary Care Provider Unavailable Francisco Metz MD Primary Care Provider [phone] Francisco Metz MD Unavailable [phone] Kenton Katz MD Unavailable Unavailable Karen Veliz DO Primary Care Provider Kenton Katz MD Unavailable Unavailable Karen Veliz DO Unavailable Encounter Details Date Type Department Care Team Description 07/14/2011 Office Visit-[facility] INTERFACE [facility] DEPT Social History Tobacco Use Types Packs/Day Years Used Date Smoking Tobacco: Never Assessed Sex Assigned at Date Recorded Not on file documented as of this encounter Progress Notes SY UMP ULTRASOUND - 07/14/2011 9:10 AM CDT Placer Miner: ADOLFO CURRY Status: Amended, Final Encounter: 2011-07-14 09:10:00.000 Type: FM Ultrasound Active Problems Acne Vulgaris (706.1) Anxiety (300.00) Care Coordinated By; Tier 0 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 US 2nd & 3rd Trimester Ultrasound Report Primary MD: Dr Navarro Machine Cloth Measurer: Latesha Harley Indications: size less than dates P: 2 Machine: [employer] 5 Pro FHR: 143 bpm Fluid:Normal TJ: [...] By: August Ontiveros ; 07/19/2011 9:17 AM MANAGEMENT TRAINEE. Signature Signed By: Latesha Harley ; 07/14/2011 9:45 AM MANAGEMENT TRAINEE. Signed By: August Ontiveros M.D.; 07/19/2011 9:17 AM MANAGEMENT TRAINEE; Author. GEMENT TRAINEE documented in this encounter Plan of Treatment Not on filedocumented as of this encounter Visit Diagnoses Not on filedocumented in this encounter Care Teams Roofer Vinyl Coating Relationship Specialty Start Date End Date Andreas Patel MD PCP - General 10/05/11 10/07/11 [facility] [address] [place] [address] Caitlin Ballesteros MD PCP - General 10/08/11 08/11/13 Lisa Dewitt DO PCP - General 08/12/13 07/15/14 [facility] [address] [place] [address] Clinic - [facility] PCP - General 07/16/14 03/11/15 [facility] [address] [place] [address] Keri Elias PCP - General Family Practice 03/12/15 9 MD Isaías Glez Mitchell PCP - General Family Practice 11/14/18 04/02/20 MD Stevie Karen Veliz, PCP - General Family Medicine 04/03/20 DO [address] [place] [address] Bebeto Roth MD Orthopedics 07/09/[address] [address] Astrid Rios PA-C Physician Storage Brine Worker Physician Storage Brine Worker - 07/09/14 Surgical Francisco Metz Assigned PCP 07/04/19 02/01/20 MD Stevie [address] [place] [address] Kenton aKtz Assigned PCP 02/02/20 08/27/20 MD Feliberto NO INFO AVAILABLE Kenton Katz Assigned Endocrinology 08/28/20 07/23/21 MD Feliberto Provider NO INFO AVAILABLE Karen Veliz, Assigned PCP 08/28/20 DO [address] [place] [address] documented as of this encounter
--- OUTSIDE RECORDS SUMMARY | 2022-01-07 14:42 | XMS_ITS | Encounter Summary ---
:1980 Author Organization [place] Address [address] [facility] [place] [address] Care Team Providers Name Role Phone Unavailable Primary Care Provider Unavailable Encounter Details Date Type Department Care Team Description 08/11/2011 Historic Results [facility] Leanne Navarro [place] MD Андрей [address] [place] [address] [place] [address] Social History Tobacco Use Types Packs/Day Years [...]
--- OUTSIDE RECORDS SUMMARY | 2022-01-07 14:42 | XMS_ITS | Encounter Summary ---
:1980 Author Organization [place] Address [address] [place] [address] Care Team Providers Name Role Phone Andreas Patel MD Primary Care Provider Caitlin Ballesteros MD Primary Care Provider Lisa Dewitt DO Primary Care Provider Bebeto Roth MD Unavailable Astrid Rios PA-C Unavailable [facility] Primary Care Provider + Keri Elias MD Primary Care Provider Unavailable Francisco Metz MD Primary Care Provider [phone] Francisco Metz MD Unavailable [phone] Kenton Katz MD Unavailable Unavailable Encounter Details Date Type Department Care Team Description 08/04/2011 PRE VISIT UR ANESTHESIA Susana Quinteros MD [address] [facility], [address] [place], [place] [phone] [place], [place] [phone] (Wo rk) Social History Tobacco Use Types Packs/Day Years Used Date Smoking Tobacco: Never Assessed Sex Assigned at Date Recorded Not on file COVID-19 Exposure Response Date Recorded In the last month, have you been in contact Unable to assess 01/23/2020 7:04 AM SVP GROUP DIRECTOR with someone who was confirmed or suspected to have Coronavirus / COVID-19? documented as of this encounter Plan of Treatment Not on filedocumented as of this encounter Visit Diagnoses Not on filedocumented in this encounter Care Teams Flooring Grader Relationship Specialty Start Date End Date Andreas Patel MD PCP - General 10/05/11 10/07/11 [facility] [address] [place] [id number] Caitlin Ballesteros MD PCP - General 10/08/11 08/11/13 Lisa Dewitt DO PCP - General 08/12/13 07/15/14 [facility] [address] [place] [phone] Clinic - Angela Laboy PCP - General 07/16/14 6 [facility] [address] [place] [address] Keri Elias PCP - General Family Practice 03/12/15 9 MD Isaías Glez Mitchell PCP - General Family Practice 11/14/18 04/02/20 MD Stevie Bebeto Roth MD Orthopedics 07/09/[address] [place] [address] Astrid Rios PA-C Physician Astrophysics Teacher Physician Astrophysics Teacher - 07/09/14 Surgical Francisco Metz Assigned PCP 07/04/19 02/01/20 MD Stevie [place] [address] [place] [address] Kenton Katz Assigned PCP 02/02/20 08/27/20 MD Feliberto NO INFO AVAILABLE documented as of this encounter
--- OUTSIDE RECORDS SUMMARY | 2022-01-07 14:42 | XMS_ITS | Encounter Summary ---
:1980 Author Organization [place] Address [address] [facility] [address] Care Team Providers Name Role Phone Andreas Patel MD Primary Care Provider Caitlin Ballesteros MD Primary Care Provider Lisa Dewitt DO Primary Care Provider Bebeto Roth MD Unavailable Astrid Rios PA-C Unavailable [facility] Primary Care Provider + Keri Elias MD Primary Care Provider Unavailable Francisco Metz MD Primary Care Provider [phone] Francisco Metz MD Unavailable [phone] Kenton Ktaz MD Unavailable Unavailable Karen Veliz DO Primary Care Provider Kenton Katz MD Unavailable Unavailable Karen Veliz DO Unavailable Encounter Details Date Type Department Care Team Description 09/08/2011 Office Visit-P INTERFACE P DEPT Karel Ontiveros MD [address] [place] [address] (Wo rk) Social History Tobacco Use Types Packs/Day Years Used Date Smoking Tobacco: Never Assessed Sex Assigned at Date Recorded Not on file documented as of this encounter Progress Notes August Ontiveros MD - 09/08/2011 3:00 PM CDT Supply Room Clerk: August Ontiveros Status: Final Encounter: 2011-09-08 15:00:00.000 Type: FM Ultrasound Active Problems Acne Vulgaris (706.1) Anxiety (300.00) Care Coordinated By; Tier 0 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 US 2nd & 3rd Trimester Ultrasound Report Primary MD: Lesli/Amanda Design Intern: August Ontiveros Indications: size less than dates follow up Machine: [employer] 5 Pro FHR: 150s Fluid:Normal TJ: 14.5 [...] By: August Ontiveros M.D.; 09/09/2011 3:11 PM DRAWBENCH OPERATOR; Author. BENCH OPERATOR documented in this encounter Plan of Treatment Not on filedocumented as of this encounter Visit Diagnoses Not on filedocumented in this encounter Care Teams Emergency Medicine Relationship Specialty Start Date End Date Andreas Patel MD PCP - General 10/05/11 10/07/11 [facility] [address] [place] [address] Caitlin Ballesteros MD PCP - General 10/08/11 08/11/13 Lisa Dewitt DO PCP - General 08/12/13 07/15/14 [facility] [address] [place] [address] Clinic - [facility], PCP - General 07/16/14 03/11/15 [facility] [address] [place] [address] Keri Elias PCP - General Family Practice 03/12/15 MD Isaías Glez Mitchell PCP - General Family Practice 11/14/18 04/02/20 MD Stevie Karen Veliz, PCP - General Family Medicine 04/03/20 DO [address] [place] [address] Bebeto Roth MD Orthopedics 07/09/[address] [address] Astrid Rios PA-C Physician Angle Shear Set Up Operator Physician Angle Shear Set Up Operator - 07/09/14 Surgical Francisco Metz Assigned PCP 07/04/19 02/01/20 MD Stevie [address] [address] Kenton Katz Assigned PCP 02/02/20 08/27/20 MD Feliberto NO INFO AVAILABLE Kenton Katz Assigned Endocrinology 08/28/20 07/23/21 MD Feliberto Provider NO INFO AVAILABLE Karen Veliz, Assigned PCP 08/28/20 DO [address] [place] [phone] documented as of this encounter
--- OUTSIDE RECORDS SUMMARY | 2022-01-07 14:42 | XMS_ITS | Encounter Summary ---
:1980 Author Organization [place] Address [facility] [place] [address] Care Team Providers Name Role Phone Unavailable Primary Care Provider Unavailable Encounter Details Date Type Department Care Team Description 06/21/2011 Results Only [facility] PHYS Radha De La Fuente 500 [facility] MD Андрей [place], [place] [phone] Social History Tobacco Use Types Packs/Day Years [...] [facility] Range Method Time Signature Specimen Cervical [facility] Chlamydia Negative for C. trachomatis rRNA by employment law attorney mediated amplification. [facility] Trachomatis A negative result [...] [facility] [address] [place] [address] [facility] MICROBIOLOGY documented in this encounter Visit Diagnoses Not on filedocumented in this encounter
--- OUTSIDE RECORDS SUMMARY | 2022-01-07 14:42 | XMS_ITS | Encounter Summary ---
:1980 Author Organization [place] Address [address] [place] [address]. [place] [address] Care Team Providers Name Role Phone Unavailable Primary Care Provider Unavailable Encounter Details Date Type Department Care Team Description 09/30/2011 Orders Only M [facility] Angela Holguin IUGR (intrauterine growth Imaging restriction) (Primary Dx) [address] [place] [address] Social History Tobacco Use Types Packs/Day [...] this encounter Results US BIOPHYS PROFILE W/O [id number] PERFORMED (09/30/2011 2:02 PM CDT) Anatomical Region [...]
--- OUTSIDE RECORDS SUMMARY | 2022-01-07 14:42 | XMS_ITS | Encounter Summary ---
:1980 Author Organization [place] Address [address] [place] [address] Care Team Providers Name Role Phone Andreas Patel MD Primary Care Provider Caitlin Ballesteros MD Primary Care Provider Lisa Dewitt DO Primary Care Provider Bebeto Roth MD Unavailable Astrid Rios PA-C Unavailable [facility] Primary Care Provider + Keri Elias MD Primary Care Provider Unavailable Francisco Metz MD Primary Care Provider [phone] Francisco Metz MD Unavailable [phone] Kenton Katz MD Unavailable Unavailable Karen Veliz DO Primary Care Provider Kenton Katz MD Unavailable Unavailable Karen Veliz DO Unavailable Encounter Details Date Type Department Care Team Description 09/22/2011 Office Visit-P INTERFACE P DEPT Nora Boyer MD [facility] [address] [place], [place] [phone] (Wo rk) Social History Tobacco Use Types Packs/Day Years Used Date Smoking Tobacco: Never Alcohol Use Standard Drinks/Week Comments No 0 (1 standard drink = 0.6 oz pure alcoho l) Sex Assigned at Date Recorded Not on file documented as of this encounter Progress Notes Aditi Boyer MD - 09/22/2011 2:00 PM CDT Informatics Analyst: Aditi Boyer Status: Final Encounter: 2011-09-22 14:00:00.000 [...] By: Aditi Boyer M.D.; 09/26/2011 2:06 PM COMMERCIAL HVAC SERVICE TECHNICIAN. documented in this encounter Plan of Treatment Not on filedocumented as of this encounter Visit Diagnoses Not on filedocumented in this encounter Care Teams Audiology Assistant Relationship Specialty Start Date End Date Andreas Patel MD PCP - General 10/05/11 10/07/11 [facility] [address] [place] [address] Caitlin Ballesteros MD PCP - General 10/08/11 08/11/13 Lisa Dewitt DO PCP - General 08/12/13 07/15/14 [facility] [address] [place], [place] [id number] Clinic - [facility] PCP - General 07/16/14 03/11/15 [facility] [address] [place] [address] Keri Elias PCP - General Family Practice 03/12/15 9 MD Isaías Glez Mitchell PCP - General Family Practice 11/14/18 04/02/20 MD Stevie Karen Veliz, PCP - General Family Medicine 04/03/20 DO [address] [place] [address] Bebeto Roth MD Orthopedics 07/09/14 [facility] [address] [place] [address] Astrid Rios PA-C Physician Environmental Adviser Physician Environmental Adviser - 07/09/14 Surgical Francisco Metz Assigned PCP 07/04/19 02/01/20 MD Stevie [place] [address] [place] [address] Kenton Katz Assigned PCP 02/02/20 08/27/20 MD Feliberto NO INFO AVAILABLE Kenton Katz Assigned Endocrinology 08/28/20 07/23/21 MD Feliberto Provider NO INFO AVAILABLE Karen Veliz, Assigned PCP 08/28/20 DO [address] [place] [address] documented as of this encounter
--- OUTSIDE RECORDS SUMMARY | 2022-01-07 14:42 | XMS_ITS | Encounter Summary ---
:1980 Author Organization [place] Address [facility] [place] [address] Care Team Providers Name Role Phone Unavailable Primary Care Provider Unavailable Encounter Details Date Type Department Care Team Description 08/18/2011 Historic Results [facility] [address] [place] [address], [address] [place] [phone] (Wo rk) Social History Tobacco Use Types [...] 1:39 PM 2 1:39 CDT PM CDT [facility] LAB - LABDAQ Performing Organization Address City/State/ZIP Code Phon e Number [facility] HISTORICAL RESULTS documented in this encounter Visit Diagnoses Not on filedocumented in this encounter
--- OUTSIDE RECORDS SUMMARY | 2022-01-07 14:42 | XMS_ITS | Encounter Summary ---
:1980 Author Organization [place] Address [address] [facility] [place] [address] Care Team Providers Name Role Phone Unavailable Primary Care Provider Unavailable Encounter Details Date Type Department Care Team Description 05/30/2011 Office Visit-[facility] INTERFACE [facility] DEPT Greta Patel v, MD [facility] [address] [place] [address] (Wo rk) Social History Tobacco Use Types Packs/Day Years Used Date Smoking Tobacco: Never Assessed Sex Assigned at Date Recorded Not on file documented as of this encounter Progress Notes Andreas Patel MD - 05/30/2011 2:40 PM CDT Strategic Business Development: Andreas Patel Status: Final Encounter: 30 May 2011 Type: FM Letters [facility] Orders Ondansetron 4 MG Tablet Dispersible;TAKE 1 TABLET BEDTIME; Qty60; R1; Rx. Loratadine 10 MG Tablet;TAKE 1 TABLET DAILY NEEDED; Qty60; R1; Rx. Signature Signed By: Andreas Patel M.D.,Resident; 05/30/2011 6:10 PM MACROECONOMICS PROFESSOR. documented in this encounter Plan of Treatment Not on filedocumented as of this encounter Visit Diagnoses Not on filedocumented in this encounter
--- OUTSIDE RECORDS SUMMARY | 2022-01-07 14:42 | XMS_ITS | Encounter Summary ---
:1980 Author Organization [place] Address [address] [facility] [place] [address] Care Team Providers Name Role Phone Unavailable [...] Navarro MD - 05/09/2011 2:40 PM CDT Clamp Remover: Radha Navarro Status: Final Encounter: 09 May 2011 Type: FM Letters [employer] Letters Ms. AZUL TELLEZ [address] [place] [address] May 09, 2011 Dear Ms. AZUL TELLEZ [...] PM - US OB LIMITED Principal Result Gear Roller: ZULMA FOREMAN DR&& EXAM: OB ultrasound 04/28/2011. [...] and agree with the findings. Performed at: [place]. Signature Signed By: Radha Navarro MD,Resident; 05/09/2011 2:40 PM LOCOMOTIVE ENGINEER DIESEL; Author. documented in this encounter Plan of Treatment Not on filedocumented as of this encounter Visit Diagnoses Not on filedocumented in this encounter
--- OUTSIDE RECORDS SUMMARY | 2022-01-07 14:42 | XMS_ITS | Encounter Summary ---
:1980 Author Organization [place] Address [facility] [place] [address] Care Team Providers Name Role Phone Unavailable Primary Care Provider Unavailable Encounter Details Date Type Department Care Team Description 04/20/2011 Results Only [facility] PHYS Radha De La Fuente 500 [facility] MD Андрей [place], [place] [phone] Social History Tobacco Use Types Packs/Day Years Used Date Smoking Tobacco: Never Assessed Sex Assigned at Date Recorded Not on file documented as of this encounter Plan of Treatment Not on filedocumented as of this encounter Procedures Procedure Name Priority Date/Time Associated Diagnosis Comme nts HEPATITIS B SURFACE Routine 04/20/2011 4:32 PM Re sults for this ANTIGEN RATING SPECIALIST procedure are i n the results section. documented in this encounter Results Hepatitis B surface antigen (04/20/2011 4:32 PM RATING SPECIALIST) Analysis Performed At Patho logist Time Signature Hep B Surface Negative NEG [facility] LABS Specimen Anatomical Collection Method Collection Time Receive d Time (Source) Location / / Volume Laterality 04/20/2011 4:32 PM 201 2 4:37 RATING SPECIALIST PM RATING SPECIALIST Radha Navarro MD LAB - BLOOD ORDERABLES Performing Organization Address City/State/ZIP Code Phon e Number [facility] [address] [place] [address] [facility] documented in this encounter Visit Diagnoses Not on filedocumented in this encounter
--- OUTSIDE RECORDS SUMMARY | 2022-01-07 14:42 | XMS_ITS | Encounter Summary ---
:1980 Author Organization [place] Address [address] [facility] [place] [address] Care Team Providers Name Role Phone Andreas Patel MD Primary Care Provider Caitlin Ballesteros MD Primary Care Provider Lisa Dewitt DO Primary Care Provider Bebeto Roth MD Unavailable Astrid Rios PA-C Unavailable [facility] Primary Care Provider + Keri Elias MD Primary Care Provider Unavailable Francisco Metz MD Primary Care Provider [phone] Francisco Metz MD Unavailable [phone] Kenton Katz MD Unavailable Unavailable Karen Veliz DO Primary Care Provider Kenton Katz MD Unavailable Unavailable Karen Veliz DO Unavailable Encounter Details Date Type Department Care Team Description 09/22/2011 Office Visit-[facility] INTERFACE [facility] DEPT Social History Tobacco Use Types Packs/Day Years Used Date Smoking Tobacco: Never Alcohol Use Standard Drinks/Week Comments No 0 (1 standard drink = 0.6 oz pure alcoho l) Sex Assigned at Date Recorded Not on file documented as of this encounter Progress Notes SY UMP ULTRASOUND - 09/22/2011 2:00 PM CDT Ed Educational Aide: SMILEYS, ULTRASOUND Status: Amended, Final Encounter: 2011-09-22 14:00:00.000 Type: FM Ultrasound Active Problems Acne Vulgaris (706.1) Anxiety (300.00) Care Coordinated By; Tier 0 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 US Biophysical Profile Report Primary MD: Dr Patel /Dr Ballesteros / Dr Ontiveros Clin Nurse: Latesha Harley Indications: pt. not feeling baby move. Dr. Franks asked for a BPP Machine eGifter 5 Pro EGA 39wks by Previous US [...] By: Payton Franks ; 09/22/2011 3:03 PM MONORAIL CRANE OPERATOR. Signature Signed By: Latesha Harley ; 09/22/2011 2:52 PM MONORAIL CRANE OPERATOR. Signed By: Payton Franks M.D.; 09/22/2011 3:03 PM MONORAIL CRANE OPERATOR; Author. Signed By: Aditi Boyer M.D.; 09/26/2011 2:03 PM MONORAIL CRANE OPERATOR. RAIL CRANE OPERATOR SY P ULTRASOUND - 09/22/2011 1:20 PM CDT Ed Educational Aide: SMILEYS, ULTRASOUND Status: Amended, Final Encounter: 2011-09-22 13:20:00.000 Type: FM Ultrasound Active Problems Acne Vulgaris (706.1) Anxiety (300.00) Care Coordinated By; Tier 0 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 US 2nd & 3rd Trimester Ultrasound Report Primary MD: Dr Patel / Dr Ontiveros /Dr Ballesteros Clin Nurse: Latesha Harley Indications: recheck growth Machine: eGifter 5 Pro FHR: 143 bpm Fluid:Normal TJ: [...] and agree with documentation. Amended By: August Ontiverso ; 09/26/2011 2:25 PM MONORAIL CRANE OPERATOR. Signature Signed By: Latesha Harley ; 09/22/2011 2:41 PM MONORAIL CRANE OPERATOR. Signed By: August Ontiveros M.D.; 09/26/2011 2:26 PM MONORAIL CRANE OPERATOR; Author. RAIL CRANE OPERATOR documented in this encounter Plan of Treatment Not on filedocumented as of this encounter Visit Diagnoses Not on filedocumented in this encounter Care Teams Graphite Mill Operator Relationship Specialty Start Date End Date Andreas Patel MD PCP - General 10/05/11 10/07/11 [facility] [address] [place] [address] Caitlin Ballesteros MD PCP - General 10/08/11 08/11/13 Lisa Dewitt DO PCP - General 08/12/13 07/15/14 [facility] [address] [place] [address] Clinic - [facility], PCP - General 07/16/14 03/11/15 [facility] [address] [place] [address] Keri Elias PCP - General Family Practice 03/12/15 9 MD Isaías Glez [place] PCP - General Family Practice 11/14/18 04/02/20 MD Stevie Karen Veliz, PCP - General Family Medicine 04/03/20 DO [address] [place] [address] Bebeto Roth MD Orthopedics 07/09/14 [facility] [place] [address] Astrid Rios PA-C Physician Clinical Nurse Physician Clinical Nurse - 07/09/14 Surgical Francisco Metz Assigned PCP 07/04/19 02/01/20 MD Stevie [address] [place] [address] Kenton Katz Assigned PCP 02/02/20 08/27/20 MD Feliberto NO INFO AVAILABLE Kenton Katz Assigned Endocrinology 08/28/20 07/23/21 MD Feliberto Provider NO INFO AVAILABLE Karen Veliz, Assigned PCP 08/28/20 DO [address] [place] [address] documented as of this encounter
--- OUTSIDE RECORDS SUMMARY | 2022-01-07 14:42 | XMS_ITS | Encounter Summary ---
:1980 Author Organization [place] Address [address] [place] [address] Care Team Providers Name Role Phone Unavailable Primary Care Provider Unavailable Encounter Details Date Type Department Care Team Description 04/20/2011 Results Only [facility] PHYS STANDARD Melanie, Radha [address] [facility] MD Андрей [place], [place] [phone] Social History Tobacco Use Types Packs/Day Years Used Date Smoking Tobacco: Never Assessed Sex Assigned at Date Recorded Not on file documented as of this encounter Plan of Treatment Not on filedocumented as of this encounter Procedures Procedure Name Priority Date/Time Associated Diagnosis Comme nts PAP IMAGED THIN Routine 04/20/2011 12:00 AM Resul ts for this LAYER SCREEN PIPE PRODUCTION WORKER procedure are i n the results section. documented in this encounter Results PAP imaged thin layer screen (04/20/2011 12:00 AM PIPE PRODUCTION WORKER) Component Value Ref Test Analysis Performed At [facility] Range Method Time Signature PAP NIL TITA Young Report TITA Acc#: [id number] ?? Signed: 04/22/2011 13:01 ?? MR#: [id number] SPECIMEN/STAIN PROCESS: Pap imaged thin layer prep [...] rcinomas or other cancers. TESTING LAB LOCATION: ??[facility] [place], [facility], [address] ?? [phone], Processed and screened at [facility] ntgiuliano, [facility] Specimen (Source) Anatomical Collection Method Collection Time Re ceived Time Location / / Volume Laterality 04/20/2011 04/21/2011 10:3 2 AM PIPE PRODUCTION WORKER Radha Navarro MD LAB - OPTIME CLINICAL SPECIM EN Performing Organization Address City/State/ZIP Code Phon e Number [place] documented in this encounter Visit Diagnoses Not on filedocumented in this encounter
--- OUTSIDE RECORDS SUMMARY | 2022-01-07 14:43 | XMS_ITS | Encounter Summary ---
:1980 Author Organization [place] Address [address] [facility] [address] Care Team Providers Name Role Phone Unavailable [...] note. Mary Codes - Daily Hospital Codes [address] Interval History - Interval History: No overnight [...] Discharged to home today. Follow up at [facility] in 7 -10 days. Signatures RADHA NAVARRO)[Signed 09:16] Authored: Interval History, Review of Systems, Physical Exam, Vital Signs/Labs/Imaging/Culture Review, VS, Assessment and Plan SHARYN SALEEM)[Signed 11:28] Authored: ATTENDING PHYSICIAN, Mary Codes documented in this encounter Plan of Treatment Not on filedocumented as of this encounter Visit Diagnoses Not on filedocumented in this encounter
--- OUTSIDE RECORDS SUMMARY | 2022-01-07 14:43 | XMS_ITS | Encounter Summary ---
:1980 Author Organization [place] Address [facility] [place] [address] Care Team Providers Name Role Phone Unavailable Primary Care Provider Unavailable Encounter Details Date Type Department Care Team Description 10/19/2009 Discharge Summary [facility] Myles De Oliveira (Battery Assembler) [facility] MD Devan Results [address] [place], [place] [id number] Social History Tobacco Use Types Packs/Day Years [...] surgical floor. Her primary care group from [facility] was asked to follow the patient as well given her history of anxiety. On postoperative day #1, she had moderate pain and required the use of Dilaudid REIMBURSEMENT LIAISON for pain control. She had some early [...] MD MT: DARLEEN Name: AZUL DINH Account: [id number] : 1980 Admit Date: [id number] Discharge Date: 10/19/2009 Document: [id number] cc: [facility] documented in this encounter Plan of Treatment Not on filedocumented as of this encounter Visit Diagnoses Not on filedocumented in this encounter
--- OUTSIDE RECORDS SUMMARY | 2022-01-07 14:43 | XMS_ITS | Encounter Summary ---
:1980 Author Organization [place] Address [facility] [place] [address] Care Team Providers Name Role Phone Unavailable Primary Care Provider Unavailable Encounter Details Date Type Department Care Team Description 04/20/2011 Results Only [facility] PHYS Radha De La Fuente [address] [facility] MD Андрей [place], [place] [phone] Social History Tobacco Use Types Packs/Day Years Used Date Smoking Tobacco: Never Assessed Sex Assigned at Date Recorded Not on file documented as of this encounter Plan of Treatment Not on filedocumented as of this encounter Procedures Procedure Name Priority Date/Time Associated Comments Diagnosis NEISSERIA GONORRHOEAE Routine 04/20/2011 4:32 PM Results for this PCR INDEPENDENT BEAUTY CONSULTANT procedure are i n the results section. documented in this encounter Results Neisseria gonorrhoeae PCR (04/20/2011 4:32 PM INDEPENDENT BEAUTY CONSULTANT) Component Value Ref Test Analysis Performed At [facility] Range Method Time Signature Specimen Cervical [facility] Descrip N Gonorrhea Negative for N. gonorrhoeae rRNA by experiential therapist mediated amplification. [facility] PCR A negative result by transc ription mediated amplification does not preclude the MICROBIOLOGY presence of N. gonorrhoeae infection because re sults are dependent on proper and adequate collection, absence of inhibitors, and suffici ent rRNA to be detected. Specimen Anatomical Collection Method Collection Time Receive d Time (Source) Location / / Volume Laterality 04/20/2011 4:32 PM 2 4:37 INDEPENDENT BEAUTY CONSULTANT PM INDEPENDENT BEAUTY CONSULTANT Radha Navarro MD LAB - MICRO GENERAL ORDERABL ES Performing Organization Address City/State/ZIP Code Phon e Number [facility] [address] [place] [address] [facility] MICROBIOLOGY documented in this encounter Visit Diagnoses Not on filedocumented in this encounter
--- OUTSIDE RECORDS SUMMARY | 2022-01-07 14:43 | XMS_ITS | Encounter Summary ---
:1980 Author Organization [place] Address [address] [place] [address]. [place] [address] Care Team Providers Name Role Phone Unavailable Primary Care Provider Unavailable Encounter Details Date Type Department Care Team Description 03/03/2010 Office Visit-[facility] Orthopaedic Clinic Bebeto Roth [facility] MD Devan [address] Floor, [id number] [place] [phone] Social History Tobacco Use Types Packs/Day Years Used Date Smoking Tobacco: Never Assessed Sex Assigned at Date Recorded Not on file documented as of this encounter Progress Notes Bebeto Roth - 03/03/2010 2:30 PM CST Facility Manager Histology: Bebeto Roth Status: Final - Signature Encounter: 03 Mar 2010 Type: U Ortho Visit Department of Orthopaedic Surgery Administration: [address], [address] [place] [address] or [phone] Appointments [email or web address] Mail Address: [address], [address] [place] [address] Shmuel Ruiz MD General Orthopaedics Marcella Wilson [...] by:Bebeto Roth M.D. 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 She is trying to earn enough money [...] of Spine Service DP:pedro cc: Jocelin Solis [facility] [address] [facility] [address] Radha Navarro MD [facility] [address] [place] [address] Electronically signed by:Bebeto Roth M.D. Mar 11 2010 9:50AM DOMESTIC HOUSEKEEPER STIC HOUSEKEEPER documented in this encounter Plan of Treatment Not on filedocumented as of this encounter Visit Diagnoses Not on filedocumented in this encounter
--- OUTSIDE RECORDS SUMMARY | 2022-01-07 14:43 | XMS_ITS | Encounter Summary ---
:1980 Author Organization [place] Address [address] [facility] [place] [address] Care Team Providers Name Role Phone Unavailable Primary Care Provider Unavailable Encounter Details Date Type Department Care Team Description 04/20/2011 Results Only [facility] PHYS STANDARD Melanie, Radha [address] [facility] MD Андрей [place], [place] [address] [phone] Social History Tobacco Use Types Packs/Day Years Used Date Smoking Tobacco: Never Assessed Sex Assigned at Date Recorded Not on file documented as of this encounter Plan of Treatment Pending Results Name Type Priority Associated Diagnoses Date/Ti me screen with HIV Lab Routine 08/2011 4:32 PM GATE SHEAR OPERATOR documented as of this encounter Procedures Procedure Name Priority Date/Time Associated Diagnosis Comme nts SCREEN WITH Routine 04/20/2011 4:32 PM GATE SHEAR OPERATOR HIV documented in this encounter Visit Diagnoses Not on filedocumented in this encounter
--- OUTSIDE RECORDS SUMMARY | 2022-01-07 14:43 | XMS_ITS | Encounter Summary ---
:1980 Author Organization [place] Address [facility] [place] [address] Care Team Providers Name Role Phone Unavailable Primary Care Provider Unavailable Encounter Details Date Type Department Care Team Description 04/20/2011 Results Only [facility] PHYS STANDARD Radha Navarro [address] [facility] MD Андрей [place], [place] [phone] Social History Tobacco Use Types Packs/Day Years Used Date Smoking Tobacco: Never Assessed Sex Assigned at Date Recorded Not on file documented as of this encounter Plan of Treatment Not on filedocumented as of this encounter Procedures Procedure Name Priority Date/Time Associated Diagnosis Comme nts ABO/RH TYPE AND Routine 04/20/2011 4:32 PM Result s for this SCREEN DEODORIZER OPERATOR procedure are i n the results section. documented in this encounter Results ABO/Rh type and screen (04/20/2011 4:32 PM DEODORIZER OPERATOR) [facility] gist Method Time Signature ABO O [facility] RH(D) Pos [facility] Antibody Neg [facility] Screen [facility] Specimen 04/23/2011 [facility] Expires [facility] Specimen Anatomical Collection Method Collection Time Receive d Time (Source) Location / / Volume Laterality 04/20/2011 4:32 PM 2 4:37 DEODORIZER OPERATOR PM DEODORIZER OPERATOR Radha Navarro MD LAB - BLOOD BANK TEST ORDER Performing Organization Address City/State/ZIP Code Phon e Number [facility] [address] [place] [address] [facility] documented in this encounter Visit Diagnoses Not on filedocumented in this encounter
--- OUTSIDE RECORDS SUMMARY | 2022-01-07 14:43 | XMS_ITS | Encounter Summary ---
:1980 Author Organization [place] Address [address] [facility] [place] [address] Care Team Providers Name Role Phone Unavailable Primary Care Provider Unavailable Encounter Details Date Type Department Care Team Description 10/19/2009 Historic Notes INTERFACED REPORT Kev Rios MD [facility] ORTH OPEDICS [address] [place], [place] [address] (Wo rk) Social History [...] - d/c home today Kev Rios MD [phone] [Signature] Author: KEV RIOS) [Signed 07:11] documented in this encounter Plan of Treatment Not on filedocumented as of this encounter Visit Diagnoses Not on filedocumented in this encounter
--- OUTSIDE RECORDS SUMMARY | 2022-01-07 14:43 | XMS_ITS | Encounter Summary ---
:1980 Author Organization [place] Address [address] [place] [address]. [place] [address] Care Team Providers Name Role Phone Unavailable Primary Care Provider Unavailable Encounter Details Date Type Department Care Team Description 11/25/2009 Office Visit-[facility] Bebeto Rothide Renzo Hartman MD [address], [phone] [place] [phone] Social History Tobacco Use Types Packs/Day Years Used Date Smoking Tobacco: Never Assessed Sex Assigned at Date Recorded Not on file documented as of this encounter Progress Notes Bebeto Roth - 11/25/2009 11:30 AM CDT Pump Servicer: Bebeto Roth Status: Final - Signature Encounter: 25 Nov 2009 Type: U Ortho Visit Department of Orthopaedic Surgery Administration: [address], [address] [place] [address] or [phone] Appointments [email or web address] Mail Address: [address], [address] [place] [address] Shmuel Ruiz MD General Orthopaedics Marcella Wilson [...] actually gone back to work in an [employer] type setting and 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 She has completed an SRS 30 questionnaire. [...] of Spine Service DP:pedro cc: Jocelin Solis [address] [address] Radha Navarro MD [facility] [address] [place] [address] Electronically signed by:Bebeto Roth M.D. Dec 03 2009 8:42AM JAVA TECH LEAD documented in this encounter Plan of Treatment Not on filedocumented as of this encounter Visit Diagnoses Not on filedocumented in this encounter
--- OUTSIDE RECORDS SUMMARY | 2022-01-07 14:43 | XMS_ITS | Encounter Summary ---
:1980 Author Organization [place] Address [address] [place] [address] Care Team Providers Name Role Phone Unavailable Primary Care Provider Unavailable Encounter Details Date Type Department Care Team Description 10/17/2009 Historic Notes INTERFACED REPORT August Ontiveros MD [address] [facility] [address] [place] [phone] (Wo rk) Social History Tobacco Use Types [...]
--- OUTSIDE RECORDS SUMMARY | 2022-01-07 14:43 | XMS_ITS | Encounter Summary ---
:1980 Author Organization [place] Address [address] [facility] [place] [address] Care Team Providers Name Role Phone Unavailable [...] Navarro MD - 12/14/2009 4:40 PM CDT Radiation Protection Technician: Radha Navarro Status: Final Encounter: 14 Dec [...] CAPSULE DAILY WITH FOOD.; Rx Saline Nasal South Heart 0.65 % Solution;USE 1 SPRAY IN EACH [...] By: Radha Navarro MD,Resident; 12/16/2009 8:48 AM ASSEMBLER GOLF WOOD HEAD; Author. Signed By: August Ontiveros M.D.; 12/17/2009 3:30 PM ASSEMBLER GOLF WOOD HEAD; Author. documented in this encounter Plan of Treatment Not on filedocumented as of this encounter Visit Diagnoses Not on filedocumented in this encounter
--- OUTSIDE RECORDS SUMMARY | 2022-01-07 14:43 | XMS_ITS | Encounter Summary ---
:1980 Author Organization [place] Address [address] [facility] [place] [address] Care Team Providers Name Role Phone Unavailable Primary Care Provider Unavailable Encounter Details Date Type Department Care Team Description 10/17/2009 Historic Notes INTERFACED REPORT Myles De Oliveira MD [address] [place] [address] (Wo rk) Social History Tobacco Use Types [...]
--- OUTSIDE RECORDS SUMMARY | 2022-01-07 14:43 | XMS_ITS | Encounter Summary ---
:1980 Author Organization [place] Address [facility] [place] [address] Care Team Providers Name Role Phone Unavailable Primary Care Provider Unavailable Encounter Details Date Type Department Care Team Description 04/20/2011 Results Only [facility] PHYS Radha De La Fuente 500 [facility] MD Андрей [place], [place] [phone] Social History Tobacco Use Types Packs/Day Years Used Date Smoking Tobacco: Never Assessed Sex Assigned at Date Recorded Not on file documented as of this encounter Plan of Treatment Not on filedocumented as of this encounter Procedures Procedure Name Priority Date/Time Associated Comments Diagnosis CHLAMYDIA TRACHOMATIS Routine 04/20/2011 4:32 PM Results for this PCR DIRECTOR OF PUBLICATIONS procedure are i n the results section. documented in this encounter Results Chlamydia trachomatis PCR (04/20/2011 4:32 PM DIRECTOR OF PUBLICATIONS) Component Value Ref Test Analysis Performed At [facility] Range Method Time Signature Specimen Cervical [facility] Chlamydia Negative for C. trachomatis rRNA by malariologist mediated amplification. [facility] Trachomatis A negative result by transc ription mediated amplification does not preclude the MICROBIOLOGY PCR presence of C. trachomatis infection because results are dependent on proper and adequate collection, absence of inhibitors, and suffici ent rRNA to be detected. Specimen Anatomical Collection Method Collection Time Receive d Time (Source) Location / / Volume Laterality 04/20/2011 4:32 PM 2 4:37 DIRECTOR OF PUBLICATIONS PM DIRECTOR OF PUBLICATIONS Radha Navarro MD LAB - MICRO GENERAL ORDERABL ES Performing Organization Address City/State/ZIP Code Phon e Number [facility] [address] [place] [address] [facility] MICROBIOLOGY documented in this encounter Visit Diagnoses Not on filedocumented in this encounter
--- OUTSIDE RECORDS SUMMARY | 2022-01-07 14:43 | XMS_ITS | Encounter Summary ---
:1980 Author Organization [place] Address [address] [facility] [place] [address] Care Team Providers Name Role Phone Unavailable Primary Care Provider Unavailable Encounter Details Date Type Department Care Team Description 10/18/2009 Consultation [facility] Carlitos Weathers, [facility] PhD LP Results FAMILY INNOVATIO NS [address] [place] [address] (Wo rk) Social History Tobacco [...] her 2 sons in an apartment in [place]. Her parents are . Shereported that the sons' father is in [employer] at this time. She reported that she had to move in with her mother a while back when both her and her mother had lost their jobs. 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 She has never been [...] can be faxed to our office at [facility] (fax [phone]), and it will be scored and gone [...] depression that may be happening. DSM-IV DIAGNOSES: Roach I: 300.00, Anxiety disorder, not otherwise specified. Roach II: Deferred. Roach III: Deferred to physician. Roach IV: Moderate to severe. Roach V: 30-35. Electronically signed on 10/19/2009 21:41 by CARLITOS WEATHERS, PHD As dictated by ADELINA HULL PSYD MT: THAO Name: AZUL DINH MRN: [id number] Account: [id number] : 1980 Consult Date: 10/18/2009 Document: [id number] cc: Bebeto Roth Jr, MD documented in this encounter Plan of Treatment Not on filedocumented as of this encounter Visit Diagnoses Not on filedocumented in this encounter
--- OUTSIDE RECORDS SUMMARY | 2022-01-07 14:43 | XMS_ITS | Encounter Summary ---
:1980 Author Organization [place] Address [facility] [place] [address] Care Team Providers Name Role Phone Unavailable Primary Care Provider Unavailable Encounter Details Date Type Department Care Team Description 10/17/2009 Results Only [facility] Poll mirza, Bebeto Hartman MD Radiology Results [address] [place], [place] [phone] (Wo rk) Social History Tobacco Use Types [...] infiltrate/atelectasis in the retrocardi ac region. Bebeto oRth MD GENERAL IMAGING documented in this encounter Visit Diagnoses Not on filedocumented in this encounter
--- OUTSIDE RECORDS SUMMARY | 2022-01-07 14:43 | XMS_ITS | Encounter Summary ---
:1980 Author Organization [place] Address [address] [facility] [place] [address] Care Team Providers Name Role Phone Unavailable [...] Navarro MD - 11/17/2009 8:20 AM CDT Guide Foreign Tour: Radha Navarro Status: Final Encounter: 17 Nov [...] CAPSULE DAILY WITH FOOD.; Rx Saline Nasal [place] 0.65 % Solution;USE 1 SPRAY IN EACH [...] like to follow up with someone at [facility] for her anxiety. 2.Nausea. The patient says [...] By: Radha Navarro MD,Resident; 11/19/2009 8:30 PM COMBINE MECHANIC; Author. Signed By: MYLES ROBERT M.D.; 11/27/2009 8:03 AM COMBINE MECHANIC. documented in this encounter Plan of Treatment Not on filedocumented as of this encounter Visit Diagnoses Not on filedocumented in this encounter
--- OUTSIDE RECORDS SUMMARY | 2022-01-07 14:43 | XMS_ITS | Encounter Summary ---
:1980 Author Organization [place] Address [address] [facility] [place] [address] Care Team Providers Name Role Phone Unavailable Primary Care Provider Unavailable Encounter Details Date Type Department Care Team Description 11/25/2009 Office Visit-[facility] INTERFACE [facility] DEPT Unknown, Provider Social History Tobacco Use Types Packs/Day Years Used Date Smoking Tobacco: Never Assessed Sex Assigned at Date Recorded Not on file documented as of this encounter Progress Notes Unknown, Provider - 11/25/2009 11:30 AM CDT Clip Wrapper: Tk Lopez Status: Final Encounter: 25 Nov 2009 Type: Rooming Note Reason For Visit Surgery follow up Do you have any other appointments, tests or procedures within the [place] system for this same day? No Occupation: [...] CAPSULE DAILY WITH FOOD.; Rx Saline Nasal [place] 0.65 % Solution;USE 1 SPRAY IN EACH [...] By: Tk Lopez CMA; 11/25/2009 11:52 AM MACHINE TRIMMER. documented in this encounter Plan of Treatment Not on filedocumented as of this encounter Visit Diagnoses Not on filedocumented in this encounter
--- OUTSIDE RECORDS SUMMARY | 2022-01-07 14:43 | XMS_ITS | Encounter Summary ---
:1980 Author Organization [place] Address [facility] [place] [address] Care Team Providers Name Role Phone Unavailable Primary Care Provider Unavailable Encounter Details Date Type Department Care Team Description 04/20/2011 Results Only [facility] PHYS Radha De La Fuente [address] [facility] MD [place] [place], [place] [phone] Social History Tobacco Use Types Packs/Day Years Used Date Smoking Tobacco: Never Assessed Sex Assigned at Date Recorded Not on file documented as of this encounter Plan of Treatment Not on filedocumented as of this encounter Procedures Procedure Name Priority Date/Time Associated Diagnosis Comme nts VARICELLA ZOSTER Routine 04/20/2011 4:32 PM Resul ts for this ANTIBODY IGG RADIOLOGY TEACHER procedure are i n the results section. documented in this encounter Results Varicella zoster antibody IgG (04/20/2011 4:32 PM RADIOLOGY TEACHER) [facility] Method Time Signature Varicella 203.00 [facility] Zoster IgG [facility] Immune Status CAMPUS LABS Ratio Vari Zoster Positive, [facility] IgG Interp suggests [place] prev. CAMPUS LABS exposure and probable immunity Specimen Anatomical Collection Method Collection Time Receive d Time (Source) Location / / Volume Laterality 04/20/2011 4:32 PM 2 4:37 RADIOLOGY TEACHER PM RADIOLOGY TEACHER Radha Navarro MD LAB - BLOOD ORDERABLES Performing Organization Address City/State/ZIP Code Phon e Number [facility] [address] [place] [address] [facility] LAB[facility] documented in this encounter Visit Diagnoses Not on filedocumented in this encounter
--- OUTSIDE RECORDS SUMMARY | 2022-01-07 14:43 | XMS_ITS | Encounter Summary ---
:1980 Author Organization [place] Address [facility] [place] [address] Care Team Providers Name Role Phone Unavailable Primary Care Provider Unavailable Encounter Details Date Type Department Care Team Description 10/30/2009 Historic Results [facility] [address] Social History Tobacco Use Types Packs/Day Years [...] Component Value Ref Test Analysis Performed At [facility] Range Method Time Signature Source Unspecified MISYS Urine Color Urine Yellow MISYS Appearance Urine Clear MISYS Glucose Urine Negative NEG MISYS mg/dL Bilirubin Urine Negative NEG MISYS Ketones Urine Negative NEG MISYS mg/dL Specific [place] 1.017 1.003 - MISYS Urine 1.035 Blood [...] LAB - URINE ORDERABLES Performing Organization Address City/[facility] Phon e Number MISYS HCG qualitative [...] URINE ORDERABLES Performing Organization Address [facility] Phon e Number MISYS Urine culture (10/30/2009 5:20 PM CDT) [facility] gist Method Time Signature Specimen Unspecified [...] GENERAL ORDERABL ES Performing Organization Address City/[facility] Phon e Number MISYS documented in this encounter Visit Diagnoses Not on filedocumented in this encounter
--- OUTSIDE RECORDS SUMMARY | 2022-01-07 14:43 | XMS_ITS | Encounter Summary ---
:1980 Author Organization [place] Address [address] [facility] [place] [address] Care Team Providers Name Role Phone Unavailable Primary Care Provider Unavailable Encounter Details Date Type Department Care Team Description 10/19/2009 Historic Results INTERFACED REPORT Kev Rios MD [facility] [address] [place], [place] [phone] (Wo rk) Social History [...]
--- OUTSIDE RECORDS SUMMARY | 2022-01-07 14:43 | XMS_ITS | Encounter Summary ---
:1980 Author Organization [place] Address [address] [facility] [place] [address] Care Team Providers Name Role Phone Unavailable [...] Navarro MD - 10/27/2009 2:40 PM CDT Aluminum Hydroxide Process Operator: Radha Navarro Status: Final Encounter: 27 Oct [...] CAPSULE DAILY WITH FOOD.; Rx Saline Nasal [place] 0.65 % Solution;USE 1 SPRAY IN EACH [...] By: Radha Navarro MD,Resident; 10/29/2009 4:44 PM SOURCING ENGINEER; Author. Signed By: Cindy Pope M.D.; 10/29/2009 6:06 PM SOURCING ENGINEER; Author. documented in this encounter Plan of Treatment Not on filedocumented as of this encounter Visit Diagnoses Not on filedocumented in this encounter
--- OUTSIDE RECORDS SUMMARY | 2022-01-07 14:43 | XMS_ITS | Encounter Summary ---
:1980 Author Organization [place] Address [address] [facility] [place] [address] Care Team Providers Name Role Phone Unavailable Primary Care Provider Unavailable Encounter Details Date Type Department Care Team Description 10/17/2009 Historic Notes INTERFACED REPORT Jana Sullivan MD [facility] [address] [place], [place] [address] (Wo rk) Social History Tobacco Use Types [...] minimize ambulation as able full note dictated #[id number] Addendum Section 09:35 Entered By:ROB WEAVER Patient [...]
--- OUTSIDE RECORDS SUMMARY | 2022-01-07 14:43 | XMS_ITS | Encounter Summary ---
:1980 Author Organization [place] Address [facility]0 [facility] [address] Care Team Providers Name Role Phone Unavailable Primary Care Provider Unavailable Encounter Details Date Type Department Care Team Description 10/18/2009 Historic Results INTERFACED REPORT Kev Rios MD [facility] [address] [place], [place] [address] (Wo rk) Social History [...] C difficile culture (10/18/2009 5:44 PM CDT) [facility] gist Method Time Signature Specimen Feces [...] the test. FDA approved assay performed using [employer] W[employer] GeneXpert real-time PCR. A negative result does [...]
--- OUTSIDE RECORDS SUMMARY | 2022-01-07 14:43 | XMS_ITS | Encounter Summary ---
:1980 Author Organization [place] Address [facility]0 [facility] [place] [address] Care Team Providers Name Role Phone Unavailable Primary Care Provider Unavailable Encounter Details Date Type Department Care Team Description 04/20/2011 Results Only [facility] PHYS STANDARD Radha Navarro [address] [facility] MD [place] [place], [place] [phone] Social History Tobacco Use Types Packs/Day Years Used Date Smoking Tobacco: Never Assessed Sex Assigned at Date Recorded Not on file documented as of this encounter Plan of Treatment Not on filedocumented as of this encounter Procedures Procedure Name Priority Date/Time Associated Diagnosis Comme nts HEPATITIS B SURFACE Routine 04/20/2011 4:32 PM Re sults for this ANTIBODY ELECTROMECHANICAL EQUIPMENT ASSEMBLER procedure are i n the results section. documented in this encounter Results Hepatitis B surface antibody (04/20/2011 4:32 PM ELECTROMECHANICAL EQUIPMENT ASSEMBLER) P athologist Signature Hep B Surface 751.0 [facility] LABS Comment: Positive, Patient is considered to be im mune to infection with hepatitis B when the value is greater than or equal to 1 2.0 mlU/mL. Specimen Anatomical Collection Method Collection Time Receive d Time (Source) Location / / Volume Laterality 04/20/2011 4:32 PM 2 4:37 ELECTROMECHANICAL EQUIPMENT ASSEMBLER PM ELECTROMECHANICAL EQUIPMENT ASSEMBLER Radha Navarro MD LAB - BLOOD ORDERABLES Performing Organization Address City/State/ZIP Code Phon e Number [facility] [address] [place] [address] [facility] documented in this encounter Visit Diagnoses Not on filedocumented in this encounter
--- OUTSIDE RECORDS SUMMARY | 2022-01-07 14:43 | XMS_ITS | Encounter Summary ---
:1980 Author Organization [place] Address [address] [facility] [place] [address] Care Team Providers Name Role Phone Unavailable Primary Care Provider Unavailable Encounter Details Date Type Department Care Team Description 10/18/2009 Historic Notes INTERFACED REPORT Radha Navarro MD Social History Tobacco Use Types Packs/Day Years Used Date Smoking Tobacco: Never Assessed Sex Assigned at Date Recorded Not on file documented as of this encounter Progress Notes Radha Nvaarro MD - 04/30/2010 8:37 PM CDT ATTENDING [...] 6. Dispo: Depends on primary team. Signatures DNEISHA OAKES)[Signed 13:27] Authored: ATTENDING PHYSICIAN, Interval History, Assessment and Plan RADHA NAVARRO)[Signed 09:34] Authored: Interval History, Review of Systems, Physical Exam, Vital Signs/Labs/Imaging/Culture Review, VS, Assessment and Plan documented in this encounter Plan of Treatment Not on filedocumented as of this encounter Visit Diagnoses Not on filedocumented in this encounter
--- OUTSIDE RECORDS SUMMARY | 2022-01-07 14:43 | XMS_ITS | Encounter Summary ---
:1980 Author Organization [place] Address [address] [facility] [place] [address] Care Team Providers Name Role Phone Unavailable Primary Care Provider Unavailable Encounter Details Date Type Department Care Team Description 10/17/2009 Historic Notes INTERFACED REPORT Kev Rios MD [facility] [address] [place], [place] [address] (Wo rk) Social History [...] next couple of days Kev Rios MD [phone] [Signature] Author: KEV RIOS () [Signed 07:33] documented in this encounter Plan of Treatment Not on filedocumented as of this encounter Visit Diagnoses Not on filedocumented in this encounter
--- OUTSIDE RECORDS SUMMARY | 2022-01-07 14:43 | XMS_ITS | Encounter Summary ---
:1980 Author Organization [place] Address [facility]0 [facility] [place] [address] Care Team Providers Name Role Phone Unavailable Primary Care Provider Unavailable Encounter Details Date Type Department Care Team Description 10/30/2009 Emergency room [facility] Lamont Brito, [facility] Results [place] [address] Social History Tobacco Use Types Packs/Day Years Used Date Smoking Tobacco: Never Assessed Sex Assigned at Date Recorded Not on file documented as of this encounter Progress Notes Lamont Ramos - 11/04/2009 5:30 AM CDT FINAL Please see T-note. Azul Forrester is a 29-year-old female who presents with 2-day history of dysuria. She states that she started taking an qpuk-cus-ehihynz medication, Urispas with improvement of her symptoms. [...] MD MT: PP Name: AZUL FORRESTER Account: [id number] : 1980 Visit Date: 10/30/2009 Document: [id number] cc: MAGGI FULLER MD documented in this encounter Plan of Treatment Not on filedocumented as of this encounter Visit Diagnoses Not on filedocumented in this encounter
--- OUTSIDE RECORDS SUMMARY | 2022-01-07 14:43 | XMS_ITS | Encounter Summary ---
:1980 Author Organization [place] Address [address] [facility] [place] [address] Care Team Providers Name Role Phone Unavailable Primary Care Provider Unavailable Encounter Details Date Type Department Care Team Description 10/19/2009 Historic Notes INTERFACED REPORT Interface, Transcript on, Social History Tobacco Use Types Packs/Day Years Used Date Smoking Tobacco: Never Assessed Sex Assigned at Date Recorded Not on file documented as of this encounter Progress Notes Interface, Acquisition Marketing Coordinator - 04/30/2010 8:35 PM CDT Discharge Summary - Reason for Discharge All goals and outcomes met, no further needs identified - Progress toward Goals met achieving short term goals/shelter goals - Comments OT: goals met, training completed, equipment issued. no OT follow up recommended. patient to have assist from family as needed. - Continued Therapy No Recommended Signatures Laureen Casas (OT)[Signed 08:38] Authored: Discharge Summary Interface, Acquisition Marketing Coordinator - 04/30/2010 8:33 PM CDT Discharge Summary - Reason for Discharge All goals and outcomes met, no further needs identified - Progress toward Goals met achieving short term goals/shelter goals - Comments PT: By Oct 20, [...]
--- OUTSIDE RECORDS SUMMARY | 2022-01-07 14:43 | XMS_ITS | Encounter Summary ---
:1980 Author Organization [place] Address [address] [facility] [place] [address] Care Team Providers Name Role Phone Unavailable Primary Care Provider Unavailable Encounter Details Date Type Department Care Team Description 03/03/2010 Office Visit-[facility] INTERFACE [facility] DEPT Provider, [facility] Nurs e Social History Tobacco Use Types Packs/Day Years Used Date Smoking Tobacco: Never Assessed Sex Assigned at Date Recorded Not on file documented as of this encounter Progress Notes Provider, [facility] Nurse - 03/03/2010 2:30 PM CST Ambulette Driver: Melvi Jáurez Status: Final Encounter: 03 Mar 2010 Type: Rooming Note Reason For Visit Surgery follow up Do you have any other appointments, tests or procedures within the [facility] system for this same day? No Occupation: [...] By: Melvi Juárez LP; 03/03/2010 2:52 PM BURR MACHINE OPERATOR. documented in this encounter Plan of Treatment Not on filedocumented as of this encounter Visit Diagnoses Not on filedocumented in this encounter
--- OUTSIDE RECORDS SUMMARY | 2022-01-07 14:43 | XMS_ITS | Encounter Summary ---
:1980 Author Organization [place] Address [address] [facility] [place] [address] Care Team Providers Name Role Phone Unavailable Primary Care Provider Unavailable Encounter Details Date Type Department Care Team Description 10/18/2009 Historic Notes INTERFACED REPORT Kev Rios MD [facility] [address] [place], [place] [address] (Wo rk) Social History [...] next couple of days Kev Rios MD [phone] [Signature] Author: KVE RIOS) [Signed 08:11] documented in this encounter Plan of Treatment Not on filedocumented as of this encounter Visit Diagnoses Not on filedocumented in this encounter
--- OUTSIDE RECORDS SUMMARY | 2022-01-07 14:44 | XMS_ITS | Encounter Summary ---
:1980 Author Organization [place] Address [address] [facility] [address] Care Team Providers Name Role Phone Unavailable Primary Care Provider Unavailable Encounter Details Date Type Department Care Team Description 10/13/2009 Historic Notes INTERFACED REPORT Interface, Transcript on, Social History Tobacco Use Types Packs/Day Years Used Date Smoking Tobacco: Never Assessed Sex Assigned at Date Recorded Not on file documented as of this encounter Progress Notes Interface, Magistrate Assistant - 04/30/2010 8:57 PM CDT Notification - Notified Person:: Resident - Notified Persons Balwindercurtis Name: - Notification Talked with Physician Interaction:: - Orders received?: No - Comments:: Discussed elevated HR and sudden onset of shaking with [place] residents rounding on pt. Resident assessed pt. No new orders. Will continue to monitor. EZRA Cardoso)[Signed 00:05] Authored: Notification Interface, Magistrate Assistant - 04/30/2010 8:57 PM CDT Notification - Notified Person:: Resident - Notified Persons Wild Name: - Notification Talked with Physician Interaction:: - Purpose of Change in condition notification:: - Orders received?: Yes - Comments:: cALLED MD to discuss pt's unresolved nausea and anxiety (post zofran and valuim). Orders for compazine, and ativan received and given. Pt improved. EZRA Cardoso)[Signed 00:03] Authored: Notification Interface, Magistrate Assistant - 04/30/2010 8:56 PM CDT General Information [...] Mobility: Rolling/Turning - Level of stand-by assist [place]: - Physical verbal cues; supervision Assist/Nonphysical Assist: - Assistive Device: bed rails Bed Mobility: Scooting/Bridging - Level of stand-by assist [place]: - Physical verbal cues; does not complete Assist/Nonphysical Assist: Bed Mobility: Sit to Supine - Level of contact guard [place]: - Physical verbal cues; 1 person assist Assist/Nonphysical Assist: Bed Mobility: Supine to Sit - Level of minimum assist (75% patients effort), contact [place]: guard - Physical 1 person assist; verbal cues Assist/Nonphysical Assist: - Assistive Device: bed rails Bed Mobility Analysis - Bed Mobility impaired ability to control trunk for mobility Limitations: - Impairments pain; post surgical precautions; fear and Contributing to anxiety Impaired Bed Mobility: Transfer: Sit to Stand - Level of unable to perform, pt anxious and nauseous, felt [place]: like she would vomit, declined Balance Skills [...] Muscle Tone, Treatment Plan, Clinical Impression Interface, Magistrate Assistant - 04/30/2010 8:54 PM CDT Progress Note [...] out of bed. I: did not DC DIRECTOR OF SCIENTIFIC RESEARCH because pt did not want to take pills. encourage use of IS. A: dressing to incision CDI. rates pain 8 but able to sleep. Signatures Amber Hedrick (RN)[Signed 14:37] Authored: Progress Note documented in this encounter Plan of Treatment Not on filedocumented as of this encounter Visit Diagnoses Not on filedocumented in this encounter
--- OUTSIDE RECORDS SUMMARY | 2022-01-07 14:44 | XMS_ITS | Encounter Summary ---
:1980 Author Organization [place] Address [facility]0 [facility] [place] [address] Care Team Providers Name Role Phone Unavailable Primary Care Provider Unavailable Encounter Details Date Type Department Care Team Description 10/12/2009 Historic Results [facility] Bebeto Roth [facility] MD Devan [place] [address], [address] [place] [id number] [address] [address] [place], [place] [address] Social History Tobacco Use [...] [facility] Range Method Time Signature Source Catheterized MISYS Urine Color Urine Straw MISYS Appearance Urine Clear MISYS Glucose Urine Negative NEG MISYS mg/dL Bilirubin Urine Negative NEG MISYS Ketones Urine Negative NEG MISYS mg/dL Specific [place] 1.005 1.003 - MISYS Urine 1.035 Blood [...] LAB - URINE ORDERABLES Performing Organization Address City/[facility] Phon e Number MISYS Urine culture (10/12/2009 10:17 AM CDT) Component Value Ref Test Analysis Performed At [facility] Method Time Signature Specimen Catheterized MISYS Description Urine Culture Micro No growth MISYS Micro Report FINAL 10/13/2009 MISYS Status Specimen Anatomical Collection Method Collection Time Receive d Time (Source) Location / / Volume Laterality 10/12/2009 10:17 10/12/2009 AM CDT 10:19 AM CDT Bebeto Roth MD LAB - MICRO GENERAL ORDERABL ES Performing Organization Address City/[facility]/ZIP Code Phon e Number MISYS (ABNORMAL) Routine UA with microscopic (10/12/2009 8:29 AM CDT) Component Value Ref Test Analysis Performed At [facility] Range Method Time Signature Source Unspecified MISYS Urine Color Urine Yellow MISYS Appearance Urine Clear MISYS Glucose Urine Negative NEG MISYS mg/dL Bilirubin Urine Negative NEG MISYS Ketones Urine Negative NEG MISYS mg/dL Specific [place] 1.018 1.003 - MISYS Urine 1.035 Blood [...]
--- OUTSIDE RECORDS SUMMARY | 2022-01-07 14:44 | XMS_ITS | Encounter Summary ---
:1980 Author Organization [place] Address [address] [facility] [place] [address] Care Team Providers Name Role Phone Unavailable Primary Care Provider Unavailable Encounter Details Date Type Department Care Team Description 06/24/2009 Office Visit-[facility] INTERFACE [facility] DEPT Provider, [facility] Nurs e Social History Tobacco Use Types Packs/Day Years Used Date Smoking Tobacco: Never Assessed Sex Assigned at Date Recorded Not on file documented as of this encounter Progress Notes Provider, [facility] Nurse - 06/24/2009 8:00 AM CDT Director Of Vendor Management: Nasrin Demarco Status: Final Encounter: 24 Jun [...] By: Nasrin Demarco RN; 06/24/2009 4:16 PM COMMERCIAL FOOD INSTRUCTOR. Provider, [facility] Nurse - 06/24/2009 8:00 AM CDT Director Of Vendor Management: Melvi Juárez Status: Final Encounter: 24 Jun 2009 Type: Rooming Note Reason For Visit Scoliosis eval. Do you have any other appointments, tests or procedures within the [facility] system for this same day? 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 Med list offered and patient declined. Signature Signed By: Melvi Juárez LP; 06/24/2009 8:05 AM COMMERCIAL FOOD INSTRUCTOR. documented in this encounter Plan of Treatment Not on filedocumented as of this encounter Visit Diagnoses Not on filedocumented in this encounter
--- OUTSIDE RECORDS SUMMARY | 2022-01-07 14:44 | XMS_ITS | Encounter Summary ---
:1980 Author Organization [place] Address [address] [facility] [place] [address] Care Team Providers Name Role Phone Unavailable Primary Care Provider Unavailable Encounter Details Date Type Department Care Team Description 10/16/2009 Historic Notes INTERFACED REPORT Kev Rios MD [facility] [address] [place], [place] [address] (Wo rk) Social History [...] - upright xrays today Kev Rios MD [phone] [Signature] Author: KEV RIOS) [Signed 07:56] documented in this encounter Plan of Treatment Not on filedocumented as of this encounter Visit Diagnoses Not on filedocumented in this encounter
--- OUTSIDE RECORDS SUMMARY | 2022-01-07 14:44 | XMS_ITS | Encounter Summary ---
:1980 Author Organization [place] Address [facility]0 [facility] [place] [address] Care Team Providers Name Role Phone Unavailable Primary Care Provider Unavailable Encounter Details Date Type Department Care Team Description 06/30/2009 Results Only [facility] Poll y, Bebeto Hartman MD Radiology Results [address] [place], [place] [phone] (Wo rk) Social History Tobacco Use Types [...]
--- OUTSIDE RECORDS SUMMARY | 2022-01-07 14:44 | XMS_ITS | Encounter Summary ---
:1980 Author Organization [place] Address [facility] [address] Care Team Providers Name Role Phone Unavailable Primary Care Provider Unavailable Encounter Details Date Type Department Care Team Description 10/13/2009 Historic Results INTERFACED REPORT Kev Rios MD [facility] ORTH OPEDICS [address] [place], [place] [phone] (Wo rk) Social History [...]
--- OUTSIDE RECORDS SUMMARY | 2022-01-07 14:44 | XMS_ITS | Encounter Summary ---
:1980 Author Organization [place] Address [facility] [place] [address] Care Team Providers Name Role Phone Unavailable Primary Care Provider Unavailable Encounter Details Date Type Department Care Team Description 06/30/2009 Office Visit-[facility] Orthopaedic Clinic Unknown, Provider [facility] 1st Floor, [address] [facility] [place] [phone] Social History Tobacco Use Types Packs/Day Years Used Date Smoking Tobacco: Never Assessed Sex Assigned at Date Recorded Not on file documented as of this encounter Progress Notes Unknown, Provider - 06/30/2009 8:19 AM CDT Certified Lactation Educator: Rhonda Bush Status: Final - Signature Encounter: 30 Jun 2009 Type: U Ortho [place] Note Fax received from [employer] insurance for Approval on Fusion of Spine Lumbar surgery. Code [id number] Electronically signed by:Rhonda Bush Jun 30 2009 8:20AM HEALTHCARE MANAGER Administrative documented in this encounter Plan of Treatment Not on filedocumented as of this encounter Visit Diagnoses Not on filedocumented in this encounter
--- OUTSIDE RECORDS SUMMARY | 2022-01-07 14:44 | XMS_ITS | Encounter Summary ---
:1980 Author Organization [place] Address [address] [facility] [place] [address] Care Team Providers Name Role Phone Unavailable Primary Care Provider Unavailable Encounter Details Date Type Department Care Team Description 06/24/2009 Results Only [facility] Bebeto Roth MD [facility] Results [address] [place], [place] [address] (Wo rk) Social History Tobacco Use Types [...]
--- OUTSIDE RECORDS SUMMARY | 2022-01-07 14:44 | XMS_ITS | Encounter Summary ---
:1980 Author Organization [place] Address [address] [facility] [place] [address] Care Team Providers Name Role Phone Unavailable Primary Care Provider Unavailable Encounter Details Date Type Department Care Team Description 10/11/2009 Historic Results Orthopaedic Clinic Bebeto Roth Austin Renzo Hartman MD [place] [address] 1[address] Floor, [address] [place] [id number] [address] [address] [place], [place] [phone] Social History Tobacco Use [...] Crossmatch red cells (10/11/2009 9:21 AM CDT) [facility] Method Time Signature ABO O MISYS RH(D) Pos MISYS Antibody Neg MISYS Screen Blood Red Cells MISYS Component Type Units Ordered 2 MISYS Specimen 10/14/2009 MISYS Expires Unit Number [id number] MISYS Blood Red Blood MISYS Component Cells Type Leukocyte Reduced Status of No longer MISYS Unit available 10/15/2009 0300 Unit Number [id number] MISYS Blood Red Blood MISYS Component Cells [...]
--- OUTSIDE RECORDS SUMMARY | 2022-01-07 14:44 | XMS_ITS | Encounter Summary ---
:1980 Author Organization [place] Address [address] [facility] [place] [address] Care Team Providers Name Role Phone Unavailable [...] seroquel. Admission - Date: 22:00 - Service: [facility] Family Medicine. - Chief Complaint: Back [...]
--- OUTSIDE RECORDS SUMMARY | 2022-01-07 14:44 | XMS_ITS | Encounter Summary ---
:1980 Author Organization [place] Address [address] [facility] [place] [address] Care Team Providers Name Role Phone Unavailable [...]
--- OUTSIDE RECORDS SUMMARY | 2022-01-07 14:44 | XMS_ITS | Encounter Summary ---
:1980 Author Organization [place] Address [address] [facility] [place] [address] Care Team Providers Name Role Phone Unavailable Primary Care Provider Unavailable Encounter Details Date Type Department Care Team Description 09/22/2009 [facility] Amanda Brown MD [facility] [address] [place], [place] [phone] (Wo rk) Social History Tobacco Use Types Packs/Day Years Used Date Smoking Tobacco: Never Assessed Sex Assigned at Date Recorded Not on file documented as of this encounter Progress Notes Amanda Brown - 09/22/2009 9:40 AM CDT Quality Assurance Clerk: Kevin Amanda Status: Final Encounter: 22 Sep [...] EVERY MORNING NEEDED.; Rx Saline Nasal [place] 0.65 % Solution;USE 1 SPRAY IN EACH [...] of exam: 09/22/09 Surgery Date: 10/13/09 Location: [place] Pre-op diagnosis: Scoliosis Chief Complaint: Pain HPI: [...] By: Amanda Brown MD,Resident; 09/22/2009 3:16 PM POCKET MACHINE OPERATOR; Author. Signed By: Luigi Solano ; 09/22/2009 9:41 PM POCKET MACHINE OPERATOR. documented in this encounter Plan of Treatment Not on filedocumented as of this encounter Visit Diagnoses Not on filedocumented in this encounter
--- OUTSIDE RECORDS SUMMARY | 2022-01-07 14:44 | XMS_ITS | Encounter Summary ---
:1980 Author Organization [place] Address [facility] [place] [address] Care Team Providers Name Role Phone Unavailable Primary Care Provider Unavailable Encounter Details Date Type Department Care Team Description 10/16/2009 Results Only [facility] Kev Rios MD Radiology Results [facility] ORTHOPEDICS [address] [place], [place] [phone] (Wo rk) Social History Tobacco Use Types Packs/Day Years Used Date Smoking Tobacco: Never Assessed Sex Assigned at Date Recorded Not on file documented as of this encounter Plan of Treatment Not on filedocumented as of this encounter Procedures Procedure Name Priority Date/Time Associated Diagnosis Comme [facility] X-RAY SPINE Routine 10/16/2009 4:09 PM [...]
--- OUTSIDE RECORDS SUMMARY | 2022-01-07 14:44 | XMS_ITS | Encounter Summary ---
:1980 Author Organization [place] Address [address] [facility] [place] [address] Care Team Providers Name Role Phone Unavailable Primary Care Provider Unavailable Encounter Details Date Type Department Care Team Description 05/18/2009 Office Visit-[facility] INTERFACE [facility] Candy Jensen Social History Tobacco Use Types Packs/Day Years Used Date Smoking Tobacco: Never Assessed Sex Assigned at Date Recorded Not on file documented as of this encounter Progress Notes Candy Jensen MD - 05/18/2009 4:00 PM CDT Curber: Candy Jensen Status: Final Encounter: 18 May [...] on the face. The patient was given [id number] mg daily, she had been using it [...] By: Candy Jensen M.D.,Resident; 05/21/2009 3:59 PM PINKING MACHINE OPERATOR; Author. Signed By: Keri Elias M.D.; 05/25/2009 8:28 AM PINKING MACHINE OPERATOR; Author. documented in this encounter Plan of Treatment Not on filedocumented as of this encounter Visit Diagnoses Not on filedocumented in this encounter
--- OUTSIDE RECORDS SUMMARY | 2022-01-07 14:44 | XMS_ITS | Encounter Summary ---
:1980 Author Organization [place] Address [address] [place] [address]. [place] [address] Care Team Providers Name Role Phone Unavailable Primary Care Provider Unavailable Encounter Details Date Type Department Care Team Description 06/24/2009 Office Visit-[facility] Orthopaedic Clinic Bebeto Rothide Renzo Hartman MD [address] 1[address] Floor, [address] [place] [phone] Social History Tobacco Use Types Packs/Day Years Used Date Smoking Tobacco: Never Assessed Sex Assigned at Date Recorded Not on file documented as of this encounter Progress Notes Bebeto Roth - 06/24/2009 8:00 AM CDT Roll Press Operator: Bebeto Roth Status: Final - Signature Encounter: 24 Jun 2009 Type: U Ortho Visit Department of Orthopaedic Surgery Administration: [address], [address] [place] [phone] or [phone] Appointments [email or web address] Mail Address: [address], [address] [place] [phone] Shmuel Ruiz MD General Orthopaedics Marcella Wilson [...] 06/24/2009 REFERRING PHYSICIAN: Candy Gutierrez M.D., of [facility]. CHIEF COMPLAINT: Low back pain and [...] who has done adjustments. 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 She lives with her mother. She has [...] Service DP:11 cc: Candy Gutierrez M.D., Resident [facility] Electronically signed by:Bebeto Roth M.D. Jun 25 2009 2:45PM SAP BUSINESS OBJECTS DEVELOPER documented in this encounter Plan of Treatment Not on filedocumented as of this encounter Visit Diagnoses Not on filedocumented in this encounter
--- OUTSIDE RECORDS SUMMARY | 2022-01-07 14:44 | XMS_ITS | Encounter Summary ---
:1980 Author Organization [place] Address [address] [facility] [place] [address] Care Team Providers Name Role Phone Unavailable [...]
--- OUTSIDE RECORDS SUMMARY | 2022-01-07 14:44 | XMS_ITS | Encounter Summary ---
:1980 Author Organization [place] Address [facility] [place] [address] Care Team Providers Name Role Phone Unavailable Primary Care Provider Unavailable Encounter Details Date Type Department Care Team Description 10/08/2009 Historic Results INTERFACED REPORT Yuri Gray MD [address] [facility] [place] [address] (Wo rk) Social History Tobacco [...] LAB - BLOOD ORDERABLES Performing Organization Address City/State/[facility] Code Phon e Number MISYS INR [...]
--- OUTSIDE RECORDS SUMMARY | 2022-01-07 14:44 | XMS_ITS | Encounter Summary ---
:1980 Author Organization [place] Address [facility]0 [facility] [place] [address] Care Team Providers Name Role Phone Unavailable Primary Care Provider Unavailable Encounter Details Date Type Department Care Team Description 10/12/2009 Results Only [facility] Poll y, Bebeto Hartman MD Radiology Results [address] [place], [place] [phone] (Wo rk) Social History Tobacco Use Types Packs/Day Years Used Date Smoking Tobacco: Never Assessed Sex Assigned at Date Recorded Not on file documented as of this encounter Plan of Treatment Not on filedocumented as of this encounter Procedures Procedure Name Priority Date/Time Associated Diagnosis Comme [facility] X-RAY SPINE Routine 10/12/2009 2:54 [...]
--- OUTSIDE RECORDS SUMMARY | 2022-01-07 14:44 | XMS_ITS | Encounter Summary ---
:1980 Author Organization [place] Address [address] [place] [address] Care Team Providers Name Role Phone Unavailable Primary Care Provider Unavailable Encounter Details Date Type Department Care Team Description 10/16/2009 Historic Results INTERFACED REPORT Kev Rios MD [facility] ORTH OPEDICS [address] [place], [place] [address] (Wo rk) Social History [...] Value Ref Test Analysis Performed At [facility] Range Method Time Signature Source Catheterized MISYS Urine Color Urine Yellow MISYS Appearance Urine Slightly Cloudy MISYS Glucose Urine Negative NEG MISYS mg/dL Bilirubin Urine Negative NEG MISYS Ketones Urine 5 (A) NEG MISYS mg/dL Specific [place] 1.007 1.003 - MISYS Urine 1.035 Blood [...] Test Analysis Performed At [facility] gist Range Method Time Signature Specimen [...]
--- OUTSIDE RECORDS SUMMARY | 2022-01-07 14:44 | XMS_ITS | Encounter Summary ---
:1980 Author Organization [place] Address [address] [place] [address]. [place] [address] Care Team Providers Name Role Phone Unavailable Primary Care Provider Unavailable Encounter Details Date Type Department Care Team Description 07/01/2009 Office Visit-[facility] Orthopaedic Clinic Bebeto Roth MD [address] 1[address] Floor, [address] [place] [phone] Social History Tobacco Use Types Packs/Day Years Used Date Smoking Tobacco: Never Assessed Sex Assigned at Date Recorded Not on file documented as of this encounter Progress Notes Bebeto Roth - 07/01/2009 10:24 AM CDT Credit Rating Checker: Bebeto Roth Status: Final - Signature Encounter: 01 Jul 2009 Type: U Ortho Letter Department of Orthopaedic Surgery Administration: Suite [facility], [address] [place] [address] or [phone] Appointments [email or web address] Mail Address: [place] [address], [address] [place] [address] Shmuel Ruiz MD General Orthopaedics Marcella Wilson [...] July 01, [address] [place] [address] RE: Azul [place] : DOS: July 01, [...] Service DP:11 cc: Candy Jensen MD, Resident [facility] [address] [place] [address] Electronically signed by:Bebeto Roth M.D. Jul 08 2009 9:14AM PRIMARY CARE MD documented in this encounter Plan of Treatment Not on filedocumented as of this encounter Visit Diagnoses Not on filedocumented in this encounter
--- OUTSIDE RECORDS SUMMARY | 2022-01-07 14:44 | XMS_ITS | Encounter Summary ---
:1980 Author Organization [place] Address [address] [facility] [place] [address] Care Team Providers Name Role Phone Unavailable Primary Care Provider Unavailable Encounter Details Date Type Department Care Team Description 10/14/2009 Historic Notes INTERFACED REPORT Interface, Transcript on, Social History Tobacco Use Types Packs/Day Years Used Date Smoking Tobacco: Never Assessed Sex Assigned at Date Recorded Not on file documented as of this encounter Progress Notes Interface, Supervisor Cemetery Workers - 04/30/2010 8:52 PM CDT General Information [...] Mobility: Rolling/Turning - Level of stand-by assist Orgas: - Physical supervision; verbal cues Assist/Nonphysical Assist: - Assistive Device: bed rails Bed Mobility: Scooting/Bridging - Level of stand-by assist Orgas: - Physical verbal cues; supervision Assist/Nonphysical Assist: - Assistive Device: bed rails Bed Mobility: Supine to Sit - Level of minimum assist (75% patients effort) Orgas: - Physical set-up required; verbal cues Assist/Nonphysical Assist: - Assistive Device: bed rails Toilet Transfer - Level of unable to perform, wanted to have pain Orgas: medication prior to getting OOB Eating/Self-Feeding - Level of stand-by assist Orgas: - Physical set-up required Assist/Nonphysical Assist: Grooming - Level of stand-by assist Orgas: - Physical set-up required Assist/Nonphysical Assist: Upper Body Dressing - Level of minimum assist (75% patients effort) Orgas: - Physical set-up required; verbal cues; 1 person assist Assist/Nonphysical Assist: Lower Body Dressing - Level of maximum assist (25% patients effort) Orgas: - Physical set-up required; verbal cues; 1 person assist Assist/Nonphysical Assist: - Assistive Device: retail sales manager; sock-aid Self Care Analysis - Impairments [...] anxiety and pain which impairs overall ADL Orgas. Patient declined OOB transfers this morning due [...] therapy goals): - Demonstrates need for PT; ELEMENTARY VOCAL MUSIC TEACHER referral to another service: - Predicted Duration [...]
--- OUTSIDE RECORDS SUMMARY | 2022-01-07 14:44 | XMS_ITS | Encounter Summary ---
:1980 Author Organization [place] Address [facility] [place] [address] Care Team Providers Name Role Phone Unavailable Primary Care Provider Unavailable Encounter Details Date Type Department Care Team Description 10/14/2009 Historic Results INTERFACED REPORT Kev Rios MD [facility] ORTH OPEDICS [address] [place], [place] [phone] (Wo rk) Social History [...]
--- OUTSIDE RECORDS SUMMARY | 2022-01-07 14:44 | XMS_ITS | Encounter Summary ---
:1980 Author Organization [place] Address [address] [facility] [place] [address] Care Team Providers Name Role Phone Unavailable Primary Care Provider Unavailable Encounter Details Date Type Department Care Team Description 10/17/2009 Consultation [facility] Ronn Weaver MD [address] [place], [place] [address] (Wo rk) Social History Tobacco Use Types [...] nancy Name: AZUL DINH MRN: [id number] Account: [id number] : 1980 Consult Date: 10/17/2009 Document: [id number] cc: Bebeto Roth Jr, MD [facility] documented in this encounter Plan of Treatment Not on filedocumented as of this encounter Visit Diagnoses Not on filedocumented in this encounter
--- OUTSIDE RECORDS SUMMARY | 2022-01-07 14:44 | XMS_ITS | Encounter Summary ---
:1980 Author Organization [place] Address [address] [facility] [place] [address] Care Team Providers Name Role Phone Unavailable [...] managed by the Ortho team with Dilaudid RADIATION CONTROL WORKER. Per Orhto note, they will wean her [...]
--- OUTSIDE RECORDS SUMMARY | 2022-01-07 14:44 | XMS_ITS | Encounter Summary ---
:1980 Author Organization [place] Address [address] [facility] [place] [address] Care Team Providers Name Role Phone Unavailable Primary Care Provider Unavailable Encounter Details Date Type Department Care Team Description 05/18/2009 Office Visit-[facility] INTERFACE [facility] DEPT Provider, [facility] Nurs e Social History Tobacco Use Types Packs/Day Years Used Date Smoking Tobacco: Never Assessed Sex Assigned at Date Recorded Not on file documented as of this encounter Progress Notes Provider, [facility] Nurse - 05/18/2009 4:00 PM CDT Spike Driver: Nelson Holliday Status: Final Encounter: 18 May 2009 Type: FM Letters [employer] Letters Ms. AZUL FORRESTER [address] [place] [address] May 18, 2009 Dear Ms. AZUL FORRESTER [...] PAP NIL Patient Name: AZUL FORRESTER MR#: [id number] Specimen #: [id number] Collected: 04/07/2009 Received: 04/08/2009 Reported: 04/09/2009 11:39 Ordering Phy(s): JULES CAMPUZANO SPECIMEN/STAIN PROCESS: Pap thin layer prep screening (SurePath) Pap-Cyto x 1, Digene Reflex HPV x 1 SOURCE: Cervical Pap thin layer prep screening (SurePath) SPECIMEN ADEQUACY: Satisfactory for evaluation. -Transformation zone component present. CYTOLOGIC INTERPRETATION: Negative for Intraepithelial Lesion or Malignancy Electronically signed out by: APOLLO Moulton (ASCP) Processed and screened at [facility] CLINICAL HISTORY: LMP: 03/30/09 TESTING LAB LOCATION: [facility], [address] [address] COLLECTION SITE: Client: [facility] Location: [facility]. Signature Signed By: Nelson Holliday [facility]; 05/18/2009 3:46 PM PIPE WELDER. documented in this encounter Plan of Treatment Not on filedocumented as of this encounter Visit Diagnoses Not on filedocumented in this encounter
--- OUTSIDE RECORDS SUMMARY | 2022-01-07 14:44 | XMS_ITS | Encounter Summary ---
:1980 Author Organization [place] Address [facility] [place] [address] Care Team Providers Name Role Phone Unavailable Primary Care Provider Unavailable Encounter Details Date Type Department Care Team Description 10/12/2009 Operative Report [facility] Myles De Oliveira (Hat Blocker) [facility] MD Devan Results [address] [place], [place] [phone] Social History Tobacco Use Types Packs/Day Years [...] substance. SURGEON: Myles De Oliveira Jr., MD. DENTAL ASSISTANT TEACHER: Kev Rios MD. SPONGE AND NEEDLE COUNT: [...] and position prone on the Chriss table 4-casing tier frame. She was then prepared and draped in the usual sterile fashion. Because of some posterior acne on her scan, 2 separate sterile preps were done with DuraPrep. The spine was then exposed from T10 through L3. Intraoperative imaging was used to confirm the appropriate level of dissection. Once the spine was exposed, the tracking arc for the EnSol navigation system was placed on the spinous [...] MD MT: MAYRA Name: AZUL FORRESTER Account: [id number] : 1980 Procedure Date: 10/12/2009 Document: [id number] cc: Azul Forrester [facility] documented in this encounter Plan of Treatment Not on filedocumented as of this encounter Visit Diagnoses Not on filedocumented in this encounter
--- OUTSIDE RECORDS SUMMARY | 2022-01-07 14:44 | XMS_ITS | Encounter Summary ---
:1980 Author Organization [place] Address [address] [facility] [place] [address] Care Team Providers Name Role Phone Unavailable Primary Care Provider Unavailable Encounter Details Date Type Department Care Team Description 10/13/2009 Historic Notes INTERFACED REPORT Kev Rios MD [facility] ORTH OPEDICS [address] [place], [place] [address] (Wo rk) Social History [...] PSF - prn pain meds, wean from STORE STOCKER to PO today - ADAT - WBAT, up with PT - encourage IS - florez out when ambulatory - appreciate Smileys input - upright xrays in a couple days - anticipate home by the end of the week Kev Rios MD [phone] [Signature] Author: KEV RIOS) [Signed 06:46] documented in this encounter Plan of Treatment Not on filedocumented as of this encounter Visit Diagnoses Not on filedocumented in this encounter
--- OUTSIDE RECORDS SUMMARY | 2022-01-07 14:44 | XMS_ITS | Encounter Summary ---
:1980 Author Organization [place] Address [address] [place] [address] Care Team Providers Name Role Phone Unavailable Primary Care Provider Unavailable Encounter Details Date Type Department Care Team Description 10/16/2009 Historic Notes INTERFACED REPORT Interface, Transcript on, Social History Tobacco Use Types Packs/Day Years Used Date Smoking Tobacco: Never Assessed Sex Assigned at Date Recorded Not on file documented as of this encounter Progress Notes Interface, Clerical Investigator - 04/30/2010 8:41 PM CDT Notification - [...] MAIKEL GRUBBS (RN)[Signed 17:22] Authored: Notification Interface, Clerical Investigator - 04/30/2010 8:41 PM CDT Notification - [...] MAIKEL GRUBBS (RN)[Signed 21:03] Authored: Notification Interface, Clerical Investigator - 04/30/2010 8:41 PM CDT MD Notification [...]
--- OUTSIDE RECORDS SUMMARY | 2022-01-07 14:44 | XMS_ITS | Encounter Summary ---
:1980 Author Organization [place] Address [address] [facility] [place] [address] Care Team Providers Name Role Phone Unavailable Primary Care Provider Unavailable Encounter Details Date Type Department Care Team Description 10/15/2009 Historic Notes INTERFACED REPORT Kev Rios MD [facility] ORTH OPEDICS [address] [place], [place] [address] (Wo rk) Social History [...] the week or weekend Kev Rios MD [phone] [Signature] Author: KEV RIOS) [Signed 06:51] documented in this encounter Plan of Treatment Not on filedocumented as of this encounter Visit Diagnoses Not on filedocumented in this encounter
--- OUTSIDE RECORDS SUMMARY | 2022-01-07 14:44 | XMS_ITS | Encounter Summary ---
:1980 Author Organization [place] Address [address] [facility] [address] Care Team Providers Name Role Phone Unavailable Primary Care Provider Unavailable Encounter Details Date Type Department Care Team Description 04/07/2009 Office Visit-[facility] INTERFACE [facility] DEPT Candy Jensen Social History Tobacco Use Types Packs/Day Years Used Date Smoking Tobacco: Never Assessed Sex Assigned at Date Recorded Not on file documented as of this encounter Progress Notes Candy Jensen MD - 04/07/2009 2:20 PM CST Neurocritical Care Physician: Candy Jensen Status: Final Encounter: 07 Apr [...] By: Candy Gutierrez M.D.,Resident; 04/07/2009 5:47 PM OPEN HEARTH DOOR LINER; Author. Signed By: Cindy Pope M.D.; 04/07/2009 9:21 PM OPEN HEARTH DOOR LINER; Author. documented in this encounter Plan of Treatment Not on filedocumented as of this encounter Visit Diagnoses Not on filedocumented in this encounter
--- OUTSIDE RECORDS SUMMARY | 2022-01-07 14:44 | XMS_ITS | Encounter Summary ---
:1980 Author Organization [place] Address Critical access hospital0 [facility] [place] [address] Care Team Providers Name Role Phone Unavailable Primary Care Provider Unavailable Encounter Details Date Type Department Care Team Description 10/08/2009 Office Visit-[facility] INTERFACE [facility] DEPT Yuri Gray MD [address] [place], [place] [address] (Wo rk) Social History Tobacco Use Types Packs/Day Years Used Date Smoking Tobacco: Never Assessed Sex Assigned at Date Recorded Not on file documented as of this encounter Progress Notes Yuri Gray - 10/08/2009 4:00 PM CDT Staffing Account Manager: Yuri Gray Status: Final Encounter: 08 [...] TABLET EVERY MORNING NEEDED.; Rx Saline Nasal [place] 0.65 % Solution;USE 1 SPRAY IN EACH NOSTRIL TWICE DAILY.; Rx Tretinoin 0.025 % Cream;APPLY SPARINGLY TO AFFECTED AREA(S) ONCE DAILY AT BEDTIME.; Rx AAA-MED RECONCILE;per pt.; RPT. 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 Vital Signs Recorded by [email or web address] on 08 Oct 2009 04:07 PM BP:118/85, LUE, Sitting, HR: 94 b/min, L Radial, Normal, Temp: 98.3 F, Oral, Height: 61.5 in, Weight: 153.6 lb, BMI: 28.6 kg/m2. Recorded by [email or web address] on 08 Oct 2009 04:14 PM BP:121/82, LUE, Sitting. SOAP HPI This 29 year old female presents as an established patient of Dr. JONNY RUIZ,[facility] here to do some blood tests for [...] as per form. Will fax results to [phone] as per patients wish. Patient denied genitourinary [...] By: Yuri Gray MD,Resident; 10/09/2009 3:48 PM MANAGER PULMONARY; Author. Signed By: Keri Elias M.D.; 10/09/2009 3:52 PM MANAGER PULMONARY; Author. documented in this encounter Plan of Treatment Not on filedocumented as of this encounter Visit Diagnoses Not on filedocumented in this encounter
--- OUTSIDE RECORDS SUMMARY | 2022-01-07 14:44 | XMS_ITS | Encounter Summary ---
:1980 Author Organization [place] Address [address] [place] [address] Care Team Providers Name Role Phone Unavailable Primary Care Provider Unavailable Encounter Details Date Type Department Care Team Description 10/14/2009 Historic Notes INTERFACED REPORT Kev Rios MD [facility] [address] [place], [place] [address] (Wo rk) Social History [...] end of the week Kev Rios MD [phone] [Signature] Author: KEV RIOS) [Signed 06:54] documented in this encounter Plan of Treatment Not on filedocumented as of this encounter Visit Diagnoses Not on filedocumented in this encounter
--- OUTSIDE RECORDS SUMMARY | 2022-01-07 14:44 | XMS_ITS | Encounter Summary ---
:1980 Author Organization [place] Address [facility] [place] [address] Care Team Providers Name Role Phone Unavailable Primary Care Provider Unavailable Encounter Details Date Type Department Care Team Description 10/15/2009 Historic Cafe Aide INTERFACED REPORT InterfaceFranny MD Social History Tobacco Use Types Packs/Day Years Used Date Smoking Tobacco: Never Assessed Sex Assigned at Date Recorded Not on file documented as of this encounter Plan of Treatment Not on filedocumented as of this encounter Visit Diagnoses Not on filedocumented in this encounter
--- OUTSIDE RECORDS SUMMARY | 2022-01-07 14:44 | XMS_ITS | Encounter Summary ---
:1980 Author Organization [place] Address [address] [facility] [place] [address] Care Team Providers Name Role Phone Unavailable Primary Care Provider Unavailable Encounter Details Date Type Department Care Team Description 10/12/2009 Historic Notes INTERFACED REPORT Interface, Transcript on, Social History Tobacco Use Types Packs/Day Years Used Date Smoking Tobacco: Never Assessed Sex Assigned at Date Recorded Not on file documented as of this encounter Progress Notes Interface, Rivet Driver - 04/30/2010 8:57 PM CDT General Information - How to be Addressed [facility] - Reason for visit [...] none Considerations - Developmental none Considerations - Caodaism none Considerations Signatures TAYLOR YAZAN (PT)[Signed 09:16] Authored: General Information, Role Relationships/Living Environment EZRA HERNANDEZ (RN)[Signed 19:02] Authored: Health and Illness, Review of Systems, Learning Assessment Interface, Rivet Driver - 04/30/2010 8:57 PM CDT Progress Note [...] dry heaves. She is afraid to use SALES PLANNING MANAGER as she states she once overdosed on tyelol by accident because she misread the dosage on the bottle, she is very fearful of getting too much pain medication. Also, many concerns about surgery, nerves, etc. SALES PLANNING MANAGER and IVF infusing to L hand. Incision [...] with effect. Educated pt on use of SALES PLANNING MANAGER and reassured and explain how OD is [...]
--- OUTSIDE RECORDS SUMMARY | 2022-01-07 14:45 | XMS_ITS | Encounter Summary ---
:1980 Author Organization [place] Address Community [facility]0 [facility] [place] [address] Care Team Providers Name Role Phone Unavailable [...] 12:00 AM Re sults for this SCREEN FELLED SEAM OPERATOR CHAINSTITCH procedure are i n the results section. documented in this encounter Results A THIN LAYER PAP SCREEN (04/07/2009 12:00 AM FELLED SEAM OPERATOR CHAINSTITCH) Component Value Ref Test Analysis Performed At [facility] Range Method Time Signature PAP NIL COPATH Copath Report COPATH Patient Name: AZUL FORRESTER MR#: [id number] Specimen #: [id number] Collected: 04/07/2009 Received: 04/08/2009 Reported: 04/09/2009 11:39 [...] APOLLO Moulton (ASCP) Processed and screened at [facility] diane [facility] CLINICAL HISTORY: LMP: 03/30/09 TESTING LAB LOCATION: [facility], [address] ??[id number] COLLECTION SITE: Client: ??[facility] Location: [facility] (B) Specimen (Source) Anatomical Collection Method Collection Time Re ceived Time Location / / Volume Laterality 04/07/2009 04/08/2009 10:1 0 AM FELLED SEAM OPERATOR CHAINSTITCH Jules Campuzano LABORATORY Performing Organization Address City/State/ZIP Code Phon e Number COPATH documented in this encounter Visit Diagnoses Not on filedocumented in this encounter
--- OUTSIDE RECORDS SUMMARY | 2022-01-07 14:45 | XMS_ITS | Encounter Summary ---
:1980 Author Organization [place] Address [address] [facility] [place] [address] Care Team Providers Name Role Phone Unavailable [...] 04/07/2009 3:27 PM Results for this PCR HORTICULTURE SUPERVISOR procedure are i n the results section. HIV 1 AND 2 ANTIBODY Routine 04/07/2009 3:27 PM R esults for this ([facility]) HORTICULTURE SUPERVISOR procedure are i n the results section. HEPATITIS C ANTIBODY Routine 04/07/2009 3:27 PM R esults for this HORTICULTURE SUPERVISOR procedure are i n the results section. HEPATITIS B SURFACE Routine 04/07/2009 3:27 PM Re sults for this ANTIBODY HORTICULTURE SUPERVISOR procedure are i n the results section. HEPATITIS B SURFACE Routine 04/07/2009 3:27 PM Re sults for this ANTIGEN HORTICULTURE SUPERVISOR procedure are i n the results section. CHLAMYDIA TRACHOMATIS Routine 04/07/2009 3:27 PM Results for this PCR HORTICULTURE SUPERVISOR procedure are i n the results section. documented in this encounter Results Chlamydia trachomatis PCR (04/07/2009 3:27 PM HORTICULTURE SUPERVISOR) Component Value Ref Test Analysis Performed At [facility] Range Method Time Signature Specimen Cervical MISYS Description Chlamydia Negative for C. MISYS Trachomatis PCR trachomatis rRNA by tribunal member mediated amplification. Comment: A negative result by tribunal member medi ated amplification does not preclude the presence of C. trachomatis infection be cause results are dependent on proper and adequate collection, absence of inh ibitors, and sufficient rRNA to be detected. Specimen Anatomical Collection Method Collection Time Receive d Time (Source) Location / / Volume Laterality 04/07/2009 3:27 PM 0 3:32 HORTICULTURE SUPERVISOR PM HORTICULTURE SUPERVISOR Candy Jensen LAB - MICRO GENERAL ORDERABL ES Performing Organization Address [facility] Code Phon e Number MISYS Neisseria gonorrhoeae PCR (04/07/2009 3:27 PM HORTICULTURE SUPERVISOR) [facility] Method Time Signature Specimen Cervical MISYS Descrip N Gonorrhea Negative for N. MISYS PCR gonorrhoeae rRNA by tribunal member mediated amplification. Comment: A negative result by tribunal member medi ated amplification does not preclude the presence of N. gonorrhoeae infection be cause results are dependent on proper and adequate collection, absence of inh ibitors, and sufficient rRNA to be detected. Specimen Anatomical Collection Method Collection Time Receive d Time (Source) Location / / Volume Laterality 04/07/2009 3:27 PM 0 3:32 HORTICULTURE SUPERVISOR PM HORTICULTURE SUPERVISOR Candy Jensen LAB - MICRO GENERAL ORDERABL ES Performing Organization Address [facility] Phon e Number MISYS Hepatitis B surface antibody (04/07/2009 3:27 PM HORTICULTURE SUPERVISOR) athologist Signature Hep B Surface 993.0 MISYS Leatha Comment: Positive, Patient is considered to be im mune to infection with hepatitis B when the value is greater than or equal to 1 2.0 mlU/mL. Specimen Anatomical Collection Method Collection Time Receive d Time (Source) Location / / Volume Laterality 04/07/2009 3:27 PM 0 3:32 HORTICULTURE SUPERVISOR PM HORTICULTURE SUPERVISOR Candy Odellkell Howard LAB - BLOOD ORDERABLES Performing Organization Address [facility]/ZIP Code Phon e Number MISYS Hepatitis B surface antigen (04/07/2009 3:27 PM HORTICULTURE SUPERVISOR) athologist Signature Hep B Surface Negative NEG MISYS Agn Specimen Anatomical Collection Method Collection Time Receive d Time (Source) Location / / Volume Laterality 04/07/2009 3:27 PM 0 3:32 HORTICULTURE SUPERVISOR PM HORTICULTURE SUPERVISOR Candy Esther Christenboodaniella LAB - BLOOD ORDERABLES Performing Organization Address [facility] Phon e Number MISYS Hepatitis C antibody (04/07/2009 3:27 PM HORTICULTURE SUPERVISOR) athologist Signature Hepatitis C Negative NEG MISYS Antibody Specimen Anatomical Collection Method Collection Time Receive d Time (Source) Location / / Volume Laterality 04/07/2009 3:27 PM 0 3:33 HORTICULTURE SUPERVISOR PM HORTICULTURE SUPERVISOR Candy Jensen LAB - BLOOD ORDERABLES Performing Organization Address [facility] Phon e Number MISYS HIV 1 and 2 Antibody (04/07/2009 3:27 PM HORTICULTURE SUPERVISOR) athologist Signature HIV 1&2 Negative NEG MISYS Antibody Specimen Anatomical Collection Method Collection Time Receive d Time (Source) Location / / Volume Laterality 04/07/2009 3:27 PM 0 3:33 HORTICULTURE SUPERVISOR PM HORTICULTURE SUPERVISOR Candy Worthyaj LAB - BLOOD ORDERABLES Performing Organization Address [facility] Phon e Number MISYS documented in this encounter Visit Diagnoses Not on filedocumented in this encounter
[2022-01-08 14:23] LABS: Strep B DNA Probe NEGATIVE (Negative)
[2022-01-08 14:28] LABS: Strep B Pen/Amox Allergy No
== END 2022-01-07 14:20 | disposition home or self-care (01) ==
LOC: NFLDREF 14:19
PROVIDERS: Visit Provider Obstetrics & Gynecology
DX: O24.419 Gestational diabetes mellitus in pregnancy, unspecified control (principal); Z3A.35 35 weeks gestation of pregnancy
CPT/HCPCS: 87081; 87653

== ENCOUNTER 2022-01-23 13:55 | Inpatient (IN) | payer OTHER, SELFPAY ==
[2022-01-23] VITALS (25 sets, daily range): BP systolic 105–134; BP diastolic 55–74; PULSE 82–239; RESP 16–18; TEMP 36.4–36.9; O2SAT 80–100; BMI 30.3
--- OUTSIDE RECORDS SUMMARY | 2022-01-23 08:22 | XMS_ITS | Encounter Summary ---
:1980 Author Organization [employer] Address [address] [place] [address] Care Team Providers Name Role Phone Zion Sorto MD Primary Care Provider Reason for Visit Reason Comments UTI Encounter Details Date Type Department Care Team Description 11/07/2012 Office Visit [facility] Dysuria (Primary Dx) [address] [place] [address] Social History Tobacco Use Types [...] NEG [facility] Comment: Test Performed by Dining Room Busser Mediated Amplification GC (N. gonorrhoeae) Negative NEG [facility] Comment: Test Performed by Dining Room Busser Mediated Amplification Specimen Anatomical Collection Method Collection Time Receive d Time (Source) Location / / Volume Laterality 11/07/2012 7:03 PM 3 7:14 CDT PM CDT Narrative [facility] - 11/08/2012 4:47 PM C DT Performed at [facility], [address] [place] [address] ??[id number] Robbie Anaya MD LAB_1 Performing Organization Address [facility] Phon e Number [facility] [phone] WET PREP, VAGINAL (11/07/2012 7:03 PM CDT) [...] 11/07/2012 7:17 PM C DT Performed at [facility], [address] [place] [id number] Robbie Anaya MD LAB_1 Performing Organization Address [facility] Phon e Number [facility] [phone] UA MICRO (11/07/2012 6:19 PM CDT) P [...] 11/07/2012 6:36 PM C DT Performed at [facility], [address] [place] [address] Robbie Anaya MD LAB_1 Performing Organization Address [facility] Phon e Number [facility] [phone] (ABNORMAL) UA MICRO IF (11/07/2012 6:19 PM [...] 11/07/2012 6:35 PM C DT Performed at [facility], [facility] [place] [address] Robbie Anaya MD LAB_1 Performing Organization Address [facility] [place] [facility] Phon e Number [facility] [phone] documented in this encounter Visit Diagnoses Diagnosis Dysuria - Primary documented in this encounter Care Teams Union Laborer Relationship Specialty Start Date End Date Zion Sorto MD PCP - General 07/16/04 06/04/14 [address] [address], [place] [address] documented as of this encounter
--- OUTSIDE RECORDS SUMMARY | 2022-01-23 08:22 | XMS_ITS | Encounter Summary ---
:1980 Author Organization [employer] Address [address] [place] [address] Care Team Providers Name Role Phone Zion Sorto MD Primary Care Provider Reason for Visit Reason Onset Date Comments FLOATERS 11/29/2016 BE floaters, about 2 months Encounter Details Date Type Department Care Team Description 11/29/2016 Telephone [facility] [address] Self-Referral, FLOATER S (BE floaters, Ophthalmology Patient, MD about 2 months) [address] [facility] [place] [id number] [phone] Social History Tobacco Use Types Packs/Day Years [...] care for appt. And not suggestive of SONOGRAPHER care - Appt is with [facility] @ [facility] 10:05 11/30/2016 documented in this encounter Plan of Treatment Not on filedocumented as of this encounter Visit Diagnoses Not on filedocumented in this encounter Care Teams Line Installation Supervisor Relationship Specialty Start Date End Date Zion Sorto MD PCP - General 10/15/[address] [place] [id number] documented as of this encounter
--- OUTSIDE RECORDS SUMMARY | 2022-01-23 08:22 | XMS_ITS | Encounter Summary ---
:1980 Author Organization [place] Address [address] [place] [address] Care Team Providers Name Role Phone Zion Sorto MD Primary Care Provider Reason for Visit Reason Onset Date Comments OB EXAM,INITIAL 04/12/2011 Encounter Details Date Type Department Care Team Description 04/12/2011 Telephone [facility] Obstetrics and Bri Morris RN, OB EXAM,INITIAL Gynecology IBLCLC [address] [facility] [address] [place] [address] [place] [address] [phone] (Wo rk) Social History Tobacco Use Types [...] every day. No cat Anuja Paredes RN CLEANING CHECKER Delvis Patiño - 04/12/2011 1:05 PM CST New pt pt has 1st Ob scheduled with Cleo Morris April 21 at 2:00 pm appt was made per online request CLEANING CHECKER documented in this encounter Plan of Treatment Not on filedocumented as of this encounter Visit Diagnoses Not on filedocumented in this encounter Care Teams Transit Proof Machine Operator Relationship Specialty Start Date End Date Zion Sorto MD PCP - General 07/16/04 06/04/14 [address] [place] [address] documented as of this encounter
--- OUTSIDE RECORDS SUMMARY | 2022-01-23 08:22 | XMS_ITS | Encounter Summary ---
:1980 Author Organization [employer] Address [address] [place] [address] Care Team Providers Name Role Phone Zion Sorto MD Primary Care Provider Reason for Visit Reason Comments Vaginal Discharge Whit colred discharge; OTC y east infect med did not help. Also itching, notes some bumps. Encounter Details Date Type Department Care Team Description 03/05/2011 Office Visit Urgent Care [facility] BV (bacterial vaginosis) (Pr imary Dx); [address] [facility] Vaginitis; [place] [address] state, incidental; [phone] Dermatitis Social History Tobacco Use Types Packs/Day Years Used Date Smoking Tobacco: Never Smokeless Tobacco: Never Alcohol Use Standard Drinks/Week Comments Not Asked 0 (1 standard drink = 0.6 oz pure alcoho l) Sex Assigned at Date Recorded Not on file documented as of this encounter Last Filed Vital Signs Vital Sign Reading Time Taken Comments Blood Pressure 126/82 03/05/2011 4:30 PM MANAGER ENROLLMENT Pulse 96 03/05/2011 4:30 PM MANAGER ENROLLMENT Temperature 36.8 ??C (98.2 ??F) 03/05/2011 4:30 PM MANAGER ENROLLMENT Respiratory Rate 20 03/05/2011 4:30 PM MANAGER ENROLLMENT Oxygen Saturation - - Inhaled Oxygen Concentration - - Weight 70.5 kg (155 lb 6.4 oz) 03/05/2011 4:30 PM MANAGER ENROLLMENT Height 160 cm (5' 3) 03/05/2011 4:30 PM MANAGER ENROLLMENT Body Mass Index 27.53 03/05/2011 4:30 PM MANAGER ENROLLMENT documented in this encounter Patient Instructions Patient InstructionsBraShirin christopher, HEALTH CARE ANALYST, CURB SUPERVISOR - 03/05/2011 5:00 PM MANAGER ENROLLMENT Return if symptoms worsen, no improvement in 1 week or not completely resolved in 2 weeks. GER ENROLLMENT documented in this encounter Progress Notes Shirin [...] the patient acknowledges understanding. Shirin Hernandez NP GER ENROLLMENT documented in this encounter Nursing Notes 03/05/2011 4:20 PM CST >> Faizan Clark LPN Sat Mar 05, 2011 4:35 PM Faizan Clark LPN documented in this encounter Plan of Treatment Not on filedocumented as of this encounter Procedures Procedure Name Priority Date/Time Associated Diagnosis Comme nts VAGINAL WET PREP Waiting 03/05/2011 4:48 PM Vaginitis Resul ts for this MANAGER ENROLLMENT procedure are i n the results section. documented in this encounter Results (ABNORMAL) WET PREP, VAGINAL (03/05/2011 4:48 PM MANAGER ENROLLMENT) [facility] Method Time Signature Epithelials Moderate [facility] % Atrophic 0 [facility] Epith WBC'S Few [facility] Bacteria Moderate [facility] Clue Cells Moderate [facility] Trichomonas 0 [facility] Yeast 0 [facility] pH 5.0 (H) 3.5 - 4.5 [facility] Specimen Anatomical Collection Method Collection Time Receive d Time (Source) Location / / Volume Laterality 03/05/2011 4:48 PM 2 4:56 MANAGER ENROLLMENT PM MANAGER ENROLLMENT Shirin Nascimento APRN, CNP LAB_1 Performing Organization Address City/State/ZIP Code Phon e Number [facility] [phone] [facility] [address] [address] documented in this encounter Visit Diagnoses Diagnosis BV (bacterial vaginosis) - Primary Vaginitis and vulvovaginitis, unspecifie d Vaginitis Vaginitis and vulvovaginitis, unspecifie d state, incidental Dermatitis Contact dermatitis and other eczema, due to unspecified cause documented in this encounter Care Teams Accountant Bookkeeper Relationship Specialty Start Date End Date Zion Sorto MD PCP - General 07/16/04 06/04/14 [address] [address] [place] [address] documented as of this encounter
--- OUTSIDE RECORDS SUMMARY | 2022-01-23 08:22 | XMS_ITS | Encounter Summary ---
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 Vitreous [place], [place] [phone] (Wo rk) Social History Tobacco Use Types [...] bilateral documented in this encounter Care Teams Supervisor Facepiece Line Relationship Specialty Start Date End Date Zion Sorto MD PCP - General 10/15/[address] [place] [address] documented as of this encounter
--- OUTSIDE RECORDS SUMMARY | 2022-01-23 08:22 | XMS_ITS | Encounter Summary ---
:1980 Author Organization [facility] Address [address] [place] [address] Care Team Providers Name Role Phone Zion Sorto MD Primary Care Provider Encounter Details Date Type Department Care Team Description 07/14/2004 Emergency Room Emergency Dept Emergency, [facility] [address] [place] [address] Provider Orders/[place] [address] Social History Tobacco Use Types Packs/Day Years Used Date Smoking Tobacco: Never Assessed Sex Assigned at Date Recorded Not on file documented as of this encounter Progress Notes Emergency, Provider - 07/14/2004 12:00 AM CDT documented in this encounter Plan of Treatment Not on filedocumented as of this encounter Visit Diagnoses Not on filedocumented in this encounter Care Teams Culled Fruit Packer Relationship Specialty Start Date End Date Zion Sorto MD PCP - General 07/16/04 06/04/14 [address] [address] [id number] documented as of this encounter
--- OUTSIDE RECORDS SUMMARY | 2022-01-23 08:22 | XMS_ITS | Encounter Summary ---
:1980 Author Organization [employer] Address [address] [place] [address] Care Team Providers Name Role Phone Zion Sorto MD Primary Care Provider Encounter Details Date Type Department Care Team Description 08/27/2013 Office Visit [facility] Bacterial vaginitis (Primary Dx); [address] Vaginal discharge [place], [place] [id number] Social History Tobacco Use Types Packs/Day Years [...] Where can you learn more? Go to [employer] and enter X360 in the search box. Last Revised: June 29, 2012 ?? [phone] [employer], [employer] documented in this encounter Progress Notes Edinson [...] WET PREP, VAGINAL (08/27/2013 8:01 PM CDT) [facility] Method Time Signature Clue Cells Clue [...] 08/27/2013 8:05 PM C DT [facility], [address] [place] [address] Edinson Bryant MD LAB_1 Performing Organization Address City/State/ZIP Code Phon e Number [facility] [phone] documented in this encounter Visit Diagnoses Diagnosis Bacterial vaginitis - Primary Vaginitis and vulvovaginitis, unspecifie d Vaginal discharge Leukorrhea, not specified as infective documented in this encounter Care Teams Tailor Women'S Garment Alteration Relationship Specialty Start Date End Date Zion Sorto MD PCP - General 07/16/04 06/04/14 [address] [address] [address] documented as of this encounter
--- OUTSIDE RECORDS SUMMARY | 2022-01-23 08:22 | XMS_ITS | Encounter Summary ---
:1980 Author Organization [employer] Address [address] [place] [address] Care Team Providers Name Role Phone Zion Sorto MD Primary Care Provider Encounter Details Date Type Department Care Team Description 04/30/2021 yossi Delgado [phone] Social History Tobacco Use Types Packs/Day Years [...] try an antibiotic. I sent a prescriptionto [facility] . I've also listed a few of [...] a full stomach. Refills: None Sent To: [facility] [address] [place], [place] [phone] Treatment Plan Self Care Tip Topics Drink [...] (minocycline) omeprazole (omeprazole) Allergies cephalexin (cephalexin), oral [facility] [employer] [facility] Information [facility] by [facility] We are an online clinic open 05/09. If you have any questions or comments about this visit, please call or email [email or web address] FAMILY MEDICINEYOSSI PROVIDER - 04/30/2021 3:29 PM CDT yossi Treatment Plan Diagnosis Urinary Tract Infection Visit Date April 30, 2021 Azul Solis-Britany Date of : 84 Provider Kristina Diaz, Physician Manager Customer Service Note From Provider Javi Liang. Thank you for using [facility] today. I?? sorry to hear that you're [...] try an antibiotic. I sent a prescriptionto [facility] . I've also listed a few of [...] 7 days Note: Refills: None Sent To: [facility] [address] [place], [place] [phone] Treatment Plan Self Care Tip Topics Drink [...] (cephalexin) minocycline (minocycline) omeprazole (omeprazole) Allergies None [facility] Information [facility] We are an online clinic open 05/09. If you have any questions or comments about this visit, please call or email [email or web address] documented in this encounter Plan of Treatment Not on filedocumented as of this encounter Visit Diagnoses Not on filedocumented in this encounter Care Teams Setter Helper Relationship Specialty Start Date End Date Zion Sorto MD PCP - General 10/15/[address] [place] [address] documented as of this encounter
--- OUTSIDE RECORDS SUMMARY | 2022-01-23 08:22 | XMS_ITS | Encounter Summary ---
:1980 Author Organization [employer] Address [address] [place] [address] Care Team Providers Name Role Phone Zion Sorto MD Primary Care Provider Reason for Visit Reason Comments Sore Throat pt wants Rx for Zofran EAR,PLUGGED SINUS PAIN/PRESSURE Encounter Details Date Type Department Care Team Description 04/09/2011 Office Visit [facility] Sore throat (Primary Dx) [address] [place] [address] Social History Tobacco Use Types Packs/Day Years Used Date Smoking Tobacco: Never Smokeless Tobacco: Never Alcohol Use Standard Drinks/Week Comments Not Asked 0 (1 standard drink = 0.6 oz pure alcoho l) Sex Assigned at Date Recorded Not on file documented as of this encounter Last Filed Vital Signs Vital Sign Reading Time Taken Comments Blood Pressure 112/72 04/09/2011 4:31 PM HORTICULTURE/FLORICULTURE TEACHER Pulse 100 04/09/2011 4:31 PM HORTICULTURE/FLORICULTURE TEACHER Temperature 36.5 ??C (97.7 ??F) 04/09/2011 4:31 PM HORTICULTURE/FLORICULTURE TEACHER Respiratory Rate 14 04/09/2011 4:31 PM HORTICULTURE/FLORICULTURE TEACHER Oxygen Saturation - - Inhaled Oxygen Concentration - - Weight 69.4 kg (153 lb) 04/09/2011 4:31 PM HORTICULTURE/FLORICULTURE TEACHER Height 161.3 cm (5' 3.5) 04/09/2011 4:31 PM HORTICULTURE/FLORICULTURE TEACHER Body Mass Index 26.68 04/09/2011 4:31 PM HORTICULTURE/FLORICULTURE TEACHER documented in this encounter Progress Notes Fauzia Riley RN - 04/11/2011 5:40 PM HORTICULTURE/FLORICULTURE TEACHER Quick Note: Negative throat culture noted.Fauzia Riley RN 04/11/2011, 5:40 PM ICULTURE/FLORICULTURE TEACHER Robbie Anaya - 04/09/2011 5:20 PM CST [...] weeks if not better, sooner as needed ICULTURE/FLORICULTURE TEACHER documented in this encounter Plan of Treatment Not on filedocumented as of this encounter Procedures Procedure Name Priority Date/Time Associated Diagnosis Comme nts STREP GRP A, RAPID Waiting 04/09/2011 4:50 PM Sore throat Res ults for this SCREEN HORTICULTURE/FLORICULTURE TEACHER procedure are i n the results section. STREP GRP A, THROAT Routine 04/09/2011 4:50 PM Re sults for this CULTURE ONLY HORTICULTURE/FLORICULTURE TEACHER procedure are i n the results section. documented in this encounter Results STREP GRP A, THROAT CULTURE ONLY (04/09/2011 4:50 PM HORTICULTURE/FLORICULTURE TEACHER) [facility] Method Time Signature Grp A Culture Negative NEG [facility] Final Specimen Anatomical Collection Method Collection Time Receive d Time (Source) Location / / Volume Laterality 04/09/2011 4:50 PM 2 4:56 HORTICULTURE/FLORICULTURE TEACHER PM HORTICULTURE/FLORICULTURE TEACHER Gavi Roldan PA-C LAB_1 Performing Organization Address [facility] Phon e Number [facility] [phone] [facility] [address] [place] [address] STREP GRP A, RAPID SCREEN (04/09/2011 4:50 PM HORTICULTURE/FLORICULTURE TEACHER) [facility] Method Time Signature Grp A Rapid Negative NEG [facility] Screen Specimen Anatomical Collection Method Collection Time Receive d Time (Source) Location / / Volume Laterality 04/09/2011 4:50 PM 2 4:56 HORTICULTURE/FLORICULTURE TEACHER PM HORTICULTURE/FLORICULTURE TEACHER Gavi Roldan PA-C LAB_1 Performing Organization Address [facility] Phon e Number [facility] [phone] [address] documented in this encounter Visit Diagnoses Diagnosis Sore throat - Primary Acute pharyngitis documented in this encounter Care Teams Stable Cleaner Relationship Specialty Start Date End Date Zion Sorto MD PCP - General 07/16/04 06/04/[address] [id number] documented as of this encounter
--- OUTSIDE RECORDS SUMMARY | 2022-01-23 08:22 | XMS_ITS | Encounter Summary ---
:1980 Author Organization [employer] Address [address] [place] [address] Care Team Providers Name Role Phone Zion Sorto MD Primary Care Provider Encounter Details Date Type Department Care Team Description 03/31/2021 yossi Delgado [phone] Social History Tobacco Use Types Packs/Day Years [...] scalp application. I sent a prescription to [facility] . I??e also listed some additional self-care [...] after 5 minutes. Refills: 1 Sent To: [facility] [address] [place], [place] [phone] Treatment Plan Self Care Tip Topics Using [...] a year, start a new interview on [employer] and we??l help create a new treatment plan for you. What to Watch Out For Give us a call if you experience: ??? Worsening rash ??? Yellow or white drainage ??? Red streaking from the site of the rash ??? Fevers My Conditions, Orders, Allergies as of March 31, 2021 Standard condition list None Current orders ketoconazole (ketoconazole) Allergies None [employer] Information [employer] by [facility] We are an online clinic open 05/09. If you have any questions or comments about this visit, please call or email [email or web address] RT DOCUMENTS CLERK documented in this encounter Plan of Treatment Not on filedocumented as of this encounter Visit Diagnoses Not on filedocumented in this encounter Care Teams Talent Development Manager Relationship Specialty Start Date End Date Zion Sorto MD PCP - General 10/15/[address] [place] [place] [address] documented as of this encounter
--- OUTSIDE RECORDS SUMMARY | 2022-01-23 08:22 | XMS_ITS | Encounter Summary ---
:1980 Author Organization [employer] Address [address] [place] [address] Care Team Providers Name Role Phone Zion Sorto MD Primary Care Provider Encounter Details Date Type Department Care Team Description 04/15/2017 yossi Delgado [phone] Social History Tobacco Use Types Packs/Day Years [...] bacterial vaginosis. I sent a prescription to [facility] [address]. Make sure to take all of the [...] 5 days Note: Refills: None Sent To: [facility] [phone] [phone] Treatment Plan Self Care Tip Topics Avoid [...] None Current orders metronidazole (metronidazole) Allergies None [facility] [employer] We are an online clinic open 05/09. If you have any questions or comments about this visit, please call or email [email or web address] [employer] documented in this encounter Plan of Treatment Not on filedocumented as of this encounter Visit Diagnoses Not on filedocumented in this encounter Care Teams Safety Engineer Pressure Vessels Relationship Specialty Start Date End Date Zion Sorto MD PCP - General 10/15/[address] [place] [address] documented as of this encounter
--- OUTSIDE RECORDS SUMMARY | 2022-01-23 08:22 | XMS_ITS | Encounter Summary ---
:1980 Author Organization [employer] Address [address] [place] [address] Care Team Providers Name Role Phone Judith Almeida MD Primary Care Provider Reason for Visit Reason Comments URINARY FREQUENCY--ED VOMITING--ED + test Encounter Details Date Type Department Care Team Description 07/14/2004 - Emergency [facility] Nafisa Murray NAUSEA ALONE; 07/15/2004 [place] [address] [phone] [place] [address] Social History Tobacco Use Types [...] Ms. Irma Garg, Thank you for choosing [facility] for your emergency medical needs. You have received emergency care only and your condition may change. Therefore, we highly recommend you follow-up with your physician as directed. For follow-up care contact: Further workup and treatment may be needed if symptoms persist, worsen or new related symptoms occur. [facility] [phone] For follow-up care, you should be seen [...] would like to be seen in a [facility] clinic, please call the [facility] Appointment Desk at [phone] anytime between 7:00 AM and 9:00 PM, 7 days a week, 365 days a year (Hearing Impaired: [phone]). Please bring these instructions with you when [...] by your caregiver). ExitCare(R) Patient Information (C)2004 [employer]. \\\epic\ExitcareNonfieldFull\NonFields\di\Korean - No Bhandari\[email or web address].htm documented in this encounter Medications at Time of Discharge Medication Sig Dispensed Refills Start Date End Date FORMULA/FOLIC ACID one tab po daily 90 3 08/13/2005 OR TABS documented as of this encounter ED Notes Fannie García - 07/15/2004 7:45 AM CDT [facility] Emergency Department Visit Note Patient Name: Azul Solis [facility] Date of : 1980 Chief Complaint: Patient [...] History n/c Review of Systems: Please see [facility] flowsheet for review of systems. Physical Exam: [...] home 2. 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 return to ED for any concerns - fevers, chills, vaginal discharge, inability to take PO, other concerns. Condition on disposition: Stable This electronic signature covers the nursing and ancillary testing orders for this visit. Author: Fannie García - 07/14/2004 11:05 PM Nafisa Murray - 07/15/2004 2:19 AM CDT [facility] Emergency Department Attending Supervision Note Patient [...] UA MICROSCOPIC IF (07/14/2004 11:22 PM CDT) [facility] gist Method Time Signature Urine Microscopic [facility] Comments exam not indicated Urine Color Yellow [facility] Urine Clarity Clear [facility] Specific 1.036 (H) 1.005 - REGIONS [place] 1.030 Comment: Possible Interfering Substances pH, Urine [...] Address City/State/ZIP Code Phon e Number [address] [address] [place], [place] [phone] documented in this encounter Visit Diagnoses Diagnosis Nausea alone state, incidental documented in this encounter Care Teams Glass Ribbon Machine Operator Relationship Specialty Start Date End Date Judith Almeida MD PCP - General 11/28/01 07/15/04 [address] [place] [address] documented as of this encounter
--- OUTSIDE RECORDS SUMMARY | 2022-01-23 08:22 | XMS_ITS | Encounter Summary ---
:1980 Author Organization [facility] Address [address] [place] [address] Care Team Providers Name Role Phone Zion Sorto MD Primary Care Provider Encounter Details Date Type Department Care Team Description 05/17/2021 yossi Delgado [phone] Social History Tobacco Use Types Packs/Day Years [...] your rash. I sent a prescription to [facility] . I've also listed a few of [...] face and genitalia Refills: 1 Sent To: [facility] [address] [place], [place] [phone] Treatment Plan Self Care Tip Topics Cold [...] (minocycline) omeprazole (omeprazole) Allergies cephalexin (cephalexin), oral [employer] Information [employer] by [facility] We are an online clinic open 05/09. If you have any questions or comments about this visit, please call or email [email or web address] documented in this encounter Plan of Treatment Not on filedocumented as of this encounter Visit Diagnoses Not on filedocumented in this encounter Care Teams Concrete Pipe Maker Relationship Specialty Start Date End Date Zion Sorto MD PCP - General 10/15/[address] [place] [address] documented as of this encounter
--- OUTSIDE RECORDS SUMMARY | 2022-01-23 08:22 | XMS_ITS | Encounter Summary ---
:1980 Author Organization [employer] Address [address] [place] [address] Care Team Providers Name Role Phone Zion Sorto MD Primary Care Provider Reason for Visit Reason Comments Other Request for Progress Notes Encounter Details Date Type Department Care Team Description 01/10/2022 Telephone [facility] [address], [place] her (Request for Endocrinology MD Progress Notes) [address] [facility] [address] [place] [address] [phone] (Wo rk) Social History Tobacco Use Types Packs/Day Years Used Date Smoking Tobacco: Never Smokeless Tobacco: Never Alcohol Use Standard Drinks/Week Comments No 0 (1 standard drink = 0.6 oz pure alcoho l) Sex Assigned at Date Recorded Not on file documented as of this encounter Nursing Notes Tala Ford - 01/10/2022 9:42 AM CST Received fax from [facility] requesting chart notes from visit(s) regarding GDM referral. Faxed chart notes from visit with Dr. Irving as well as visit with [facility] to [phone]. SIGN ERECTOR documented in this encounter Plan of Treatment Not on filedocumented as of this encounter Visit Diagnoses Not on filedocumented in this encounter Care Teams Deputy Probation Officer Relationship Specialty Start Date End Date Zion Sorto MD PCP - General 10/15/15 [address] [place] [address] documented as of this encounter
--- OUTSIDE RECORDS SUMMARY | 2022-01-23 08:22 | XMS_ITS | Clinical Summary ---
:1980 Author Organization [facility] Address [address] [place] [address] Care Team Providers Name Role Phone Zion [...] for each transition of care or referral. [employer] Allergies No known active allergies Medications Medication [...] Active MG capsule times daily. 0 Active Bcmaudbn-Yqj-In-FA (PRE- FORMULA OR) insulin isophane (HUMULIN Inject [...] Encounters Date Type Specialty Care Team Description 01/10/2022 Telephone Endocrinology Dominik Irving MD Othe r (Request for Progress Notes) 01/04/2022 Telemedicine Endocrinology Dominik Irving MD 12/23/2021 [...] Address Typ e / Group Dates [facility] [id number] Effective for C ommercial DENTAL PLAN [facility] all dates DENTAL [facility] SELF [id number] 2021-Pre Commercial MANAGED CARE sent [phone] [address]Home[phone] [place], [place] 0 (Work) [address] [employer], Personal/Famil Self 1980 [phone] [place] y [address] (Home) [place] [address] [employer]er Smart, Personal/Famil Self 1980 [phone] (Home) [place] [address] [employer] Smart, Personal/Famil Self 1980 [phone] [place] (Home) [place] [address] [employer]er Smart, MVA/TPL Self 1980 [phone] (Home) [place] [address] [employer]ipler Smart, MVA/TPL Self 1980 [phone] (Home) [place] [address] Care Teams Heel Slicker Relationship Specialty Start Date End Date Zion Sorto MD PCP - General 10/15/[address] [place] [address]
--- OUTSIDE RECORDS SUMMARY | 2022-01-23 08:22 | XMS_ITS | Encounter Summary ---
:1980 Author Organization [employer] Address [address] [place] [address] Care Team Providers Name Role Phone Zion Sorto MD Primary Care Provider Reason for Visit Reason Comments BLADDER INFECTION urgency but then there is no t urine when she goes, sx sx yesterday. INFECTION, VAGINAL odor and discharge. Encounter Details Date Type Department Care Team Description 08/10/2011 Office Visit Urgent Care [facility] UTI (urinary tract infection ) (Primary Dx); [address] [facility] Dysuria; [place] [address] Vaginitis; [phone] BV (bacterial v aginosis); state, incidental Social [...] She is getting her OB care [facility] [place]. OBJECTIVE: BP 110/73 Pulse 104 Temp(Src) 97.9 [...] [facility] Range Method Time Signature Specimen Urine [facility] Description Midstream Special Sensitivity [facility] Requests Ordered Culture > 100,000 [facility] col/ml Klebsiella pneumoniae Report Status Final [facility] 08/12/2011 Organism > 100,000 [facility]/ml Klebsiella pneumoniae Specimen Anatomical Collection Method [...] Susceptible SUSCEPTIBLE > 100,000 col/ml klebsiella Trimethoprim KRSITIAN <=8 pneumoniae Susceptible SUSCEPTIBLE > 100,000 col/ml klebsiella Trimeth/Sulfa KRISTIAN <=2/ 38 pneumoniae Susceptible SUSCEPTIBLE Shirin Nascimento APRN, CNP LAB_1 Performing Organization Address [facility] Phon e Number [employer] [phone] [address] (ABNORMAL) WET PREP, VAGINAL (08/10/2011 5:56 PM CDT) Component Value Ref Test Analysis Performed At [facility] Method Time Signature Clue Cells Clue Cells NCLUE [facility] Present (A) Trichomonas No Trichomonas N[facility]IC [facility] Seen Yeast No Yeast Found YN [facility] pH 5.0 (H) 3.5 - [facility] 4.5 Specimen Anatomical Collection Method Collection Time Receive d Time (Source) Location / / Volume Laterality 08/10/2011 5:56 PM 2 6:00 CDT PM CDT Shirin Nascimento APRN, LADI LAB_1 Performing Organization Address [facility] Phon e Number [employer] [phone] [address] UA MICRO (08/10/2011 5:09 PM CDT) [email or web address] Method Time Signature RBC'S 10-20 0 - [...] Nascimento APRN, CNP LAB_1 Performing Organization Address [facility] Phon e Number [facility] [employer] [phone] [facility] [address] [place] [address] (ABNORMAL) UA MICRO IF (08/10/2011 5:09 PM CDT) [facility] Method Time Signature Urine Color Yellow [facility] [...] Nascimento APRN, CNP LAB_1 Performing Organization Address [facility] Phon e Number [facility] [employer] [phone] [address] documented in this encounter Visit Diagnoses Diagnosis UTI (urinary tract infection) - Primary Urinary tract infection, site not specif ied Dysuria Vaginitis Vaginitis and vulvovaginitis, unspecifie d BV (bacterial vaginosis) Vaginitis and vulvovaginitis, unspecifie d state, incidental documented in this encounter Care Teams Firer Retort Relationship Specialty Start Date End Date Zion Sorto MD PCP - General 07/16/04 06/04/14 [address] [address] [facility], [place] [id number] documented as of this encounter
--- OUTSIDE RECORDS SUMMARY | 2022-01-23 08:22 | XMS_ITS | Encounter Summary ---
:1980 Author Organization [employer] [facility] Address [address] [place] [address] Care Team Providers Name Role Phone Zion Sorto MD Primary Care Provider Reason for Visit Reason Comments FLOATERS Encounter Details Date Type Department Care Team Description 04/05/2014 Telephone [facility] No Primary/Referring, FLOATERS [address] [place], [place] [address] Social History Tobacco Use Types Packs/Day Years Used Date Smoking Tobacco: Never Smokeless Tobacco: Never Alcohol Use Standard Drinks/Week Comments Not Asked 0 (1 standard drink = 0.6 oz pure alcoho l) Sex Assigned at Date Recorded Not on file documented as of this encounter Nursing Notes Ursula Aguillon - 04/07/2014 9:00 AM CST scheduled WASHER Kristin Diamond - 04/05/2014 11:10 AM CST Patient would like appointment with: Any Provider Patient requesting appointment for: FLOATERS, ROUTINE EYE EXAM Wants/Needs to be seen within: AROUND Monday04/11/2014 Additional Comments: NO Add Is it okay to leave detailed message on your voicemail? YES Kristin Diamond WASHER documented in this encounter Plan of Treatment Not on filedocumented as of this encounter Visit Diagnoses Not on filedocumented in this encounter Care Teams Framing Mill Operator Relationship Specialty Start Date End Date Zion Sorto MD PCP - General 07/16/04 06/04/14 [address] [place] [address] documented as of this encounter
--- OUTSIDE RECORDS SUMMARY | 2022-01-23 08:22 | XMS_ITS | Encounter Summary ---
:1980 Author Organization [facility] Address [address] [place] [address] Care Team Providers Name Role Phone Zion Sorto MD Primary Care Provider Encounter Details Date Type Department Care Team Description 07/19/2004 Office Visit [facility] Unknown, Physician Obstetrics and Gynec ology [address] [place] [address] [phone] (Wo rk) Social History Tobacco Use Types Packs/Day Years Used Date Smoking Tobacco: Never Assessed Sex Assigned at Date Recorded Not on file documented as of this encounter Progress Notes Unknown, Physician - 07/19/2004 12:00 AM CDT documented in this encounter Plan of Treatment Not on filedocumented as of this encounter Visit Diagnoses Not on filedocumented in this encounter Care Teams Lift Truck Operator Relationship Specialty Start Date End Date Zion Sorto MD PCP - General 07/16/04 06/04/14 [address] [place] [address] documented as of this encounter
--- OUTSIDE RECORDS SUMMARY | 2022-01-23 08:22 | XMS_ITS | Encounter Summary ---
:1980 [facility] Address [address] [place] [address] Care Team Providers Name Role Phone Zion Sorto MD Primary Care Provider Reason for Visit Reason Comments Dental Conversion Legacy EDR to Cut Off convers ion Encounter Details Date Type Department Care Team Description 07/21/2016 Dental Conversion [place] [facility] DDS [address] [facility], [address] [place] [address] Social History Tobacco Use Types Packs/Day Years [...] Notes: 08/31/07 -- Fail; See contacts. LJL; LEAD TELLER documented in this encounter Miscellaneous Notes Miscellaneous - Interface, In Edr Dental Conversion - 05/17/2013 12:00 AM CDT 05/17/2013: Email To OS: Azul MCCORMICK 1980 scheduled on 05/23/13 BARRETT dated 05/16/13 Thank you, [facility] [phone] Miscellaneous - Interface, In Edr Dental Conversion [...] on filedocumented in this encounter Care Teams Train Planner Relationship Specialty Start Date End Date Zion Sorto MD PCP - General 10/15/[address] [place] [address] documented as of this encounter
--- OUTSIDE RECORDS SUMMARY | 2022-01-23 08:22 | XMS_ITS | Encounter Summary ---
:1980 Author Organization [facility] Address [address] [place] [address] Care Team Providers Name Role Phone Non Pn, Clinician MD Primary Care Provider Unavailable Reason for Visit Reason Comments Follow-up Encounter Details Date Type Department Care Team Description 06/06/2014 Office Visit [facility] [address] Samaniego, Anne Marie blue (Primary Dx); Family Medicine DO Gastroesophageal reflux disease without esophagitis; [address] [place] [address] [facility] [address] [phone] Social History Tobacco Use Types Packs/Day Years [...] 06/18/14 1222 Note Time: 06/11/14826 Status: Signed Deckhand Engineer: Jannette Samaniego DO (Physician) NAME: AZUL MCCLELLAN MR#: [id number] CSN: [id number] AUTHENTICATING CLINICIAN: Jannette Samaniego DO CONFIRM #: [id number] LOC: 402 CLINIC PROGRESS NOTE DATE OF [...] MEDICAL HISTORY: Reviewed and updated as per [facility]. Please see for details. SOCIAL HISTORY: Reviewed and updated as per [facility]. Please see for details. MEDICATIONS: Reviewed and updated as per [facility]. Please see for details. ALLERGIES: Reviewed and updated as per [facility]. Please see for details. REVIEW OF SYSTEMS: As per [facility]. PHYSICAL EXAM: VITAL SIGNS: As per Epic. [...] with greater than 50% spent in direct wajy-ni-lkvm counseling, coordination of care. Discussed worsening concerns in depth. Discussed uncertain etiology of symptoms, expected course. All questions answered to patient's satisfaction. Medications and allergy list updated. Side effects ofmedications, risk/benefits and alternatives discussed. Patient understands and agrees with plan as listed above EMK:MEDQ C: CONFIRM #: [id number] documented in this encounter Plan of Treatment Not on filedocumented as of this encounter Visit Diagnoses Diagnosis Anxiety (HRC) - Primary Anxiety state, unspecified Gastroesophageal reflux disease without esophagitis Esophageal reflux Panic attacks (HRC) Panic disorder without agoraphobia documented in this encounter Care Teams Mail List Processor Relationship Specialty Start Date End Date Non Pn, Clinician, PCP - General 06/05/14 10/14/15 [place] [address] documented as of this encounter
--- OUTSIDE RECORDS SUMMARY | 2022-01-23 08:22 | XMS_ITS | Encounter Summary ---
:1980 Author Organization [facility] Address [address] [place] [address] Care Team Providers Name Role Phone Zion Sorto MD Primary Care Provider Reason for Visit Reason Comments MEDICATION, NOS pt needed to get Zofran b/c she is 7 weeks and has morning sickings Encounter Details Date Type Department Care Team Description 02/15/2011 Office Visit Urgent Care [facility] Hyperemesis gravidarum [address] [facility] (Primary Dx) [place] [address] Social History Tobacco Use Types Packs/Day Years Used Date Smoking Tobacco: Never Assessed Sex Assigned at Date Recorded Not on file documented as of this encounter Last Filed Vital Signs Vital Sign Reading Time Taken Comments Blood Pressure 115/83 02/15/2011 7:47 PM SUPPLY OFFICER Pulse 103 02/15/2011 7:47 PM SUPPLY OFFICER Temperature 36.1 ??C (96.9 ??F) 02/15/2011 7:47 PM SUPPLY OFFICER Respiratory Rate 18 02/15/2011 7:47 PM SUPPLY OFFICER Oxygen Saturation - - Inhaled Oxygen Concentration - - Weight 72.6 kg (160 lb) 02/15/2011 7:47 PM SUPPLY OFFICER Height 160 cm (5' 3) 02/15/2011 7:47 PM SUPPLY OFFICER Body Mass Index 28.34 02/15/2011 7:47 PM SUPPLY OFFICER documented in this encounter Progress Notes Martin [...] starting vitamins whether prescription or non-prescription now. LY OFFICER documented in this encounter Nursing Notes 02/15/2011 7:00 PM CST >> Lam Lozano, STEAFNIE dagoberto Feb 15, 2011 7:49 PM . documented in this encounter Plan of Treatment Not on filedocumented as of this encounter Visit Diagnoses Diagnosis Hyperemesis gravidarum - Primary Mild hyperemesis gravidarum, unspecified as to episode of care documented in this encounter Care Teams Seamer Elastic Band Relationship Specialty Start Date End Date Zion Sorto MD PCP - General 07/16/04 06/04/14 [address] [place] [address] documented as of this encounter
--- OUTSIDE RECORDS SUMMARY | 2022-01-23 08:22 | XMS_ITS | Encounter Summary ---
:1980 Author Organization [facility] Address [address] [place] [address] Care Team Providers Name Role Phone Zion Sorto MD Primary Care Provider Encounter Details Date Type Department Care Team Description 01/04/2022 Telemedicine [facility] [address] Dago Irving MD Endocrinology [address] [place] [place] [address] [place], [place] [address] [phone] Social History Tobacco Use Types Packs/Day Years [...] on filedocumented in this encounter Care Teams Rig Hand Relationship Specialty Start Date End Date Zion Sorto MD PCP - General 10/15/15 [address] [place], [place] [address] documented as of this encounter
--- OUTSIDE RECORDS SUMMARY | 2022-01-23 08:22 | XMS_ITS | Encounter Summary ---
:1980 Author Organization [facility] Address [address] [place] [address] Care Team Providers Name Role Phone Zion Sorto MD Primary Care Provider Encounter Details Date Type Department Care Team Description 03/27/2021 yossi Delgado [phone] Social History Tobacco Use Types Packs/Day Years [...] better by using a special blend of agej-qxg-nlmgicj products to reduce your pain and other [...] None Allergies None virt[facility]well Information virtuwell by [facility] We are an online clinic open 05/09. If you have any questions or comments about this visit, please call or email [email or web address] documented in this encounter Plan of Treatment Not on filedocumented as of this encounter Visit Diagnoses Not on filedocumented in this encounter Care Teams Boat Tender Relationship Specialty Start Date End Date Zion Sorto MD PCP - General 10/15/15 [address] [facility] [place] [id number] documented as of this encounter
--- OUTSIDE RECORDS SUMMARY | 2022-01-23 08:22 | XMS_ITS | Encounter Summary ---
:1980 Author Organization [facility] Address [address] [place] [address] Care Team Providers Name Role Phone Non Pn, Clinician MD Primary Care Provider Unavailable Reason for Visit Reason Comments Chest Pain Encounter Details Date Type Department Care Team Description 06/05/2014 Emergency [facility] Delfin Lynch MD Atypical chest pain; Center [address] Gastroesophageal reflux dise ase with esophagitis [address] [place] [address] [facility] [phone] ( [place]) [place] [address] [phone] Social History Tobacco Use Types Packs/Day Years [...] AM
Documentation filed: Charges VN Fransisca Davis, [facility] - 06/05/2014 5:58 PM CDT EC SW and SW Fast Food Cook approached the EC Physician to further discuss patient's concerns. EC Physician changed his mind about the consult and did not think that she would be receptive to obtaining resources on anxiety management. He declined the request for consult. [facility] Network Professional, [phone] pager documented in this encounter ED Notes Delfin Lynch MD - 06/05/2014 6:15 PM CDT Chief Complaint: Chest Pain HPI: Auzl Garg is a 33 y.o. female who [...] and the provider's statements to me. 06/05/2014 [facility] Delfin Lynch MD 06/05/14 [address]76 R[address] Franco RN - 06/05/2014 6:15 PM [...] 06/05/2014 6:15 PM CDT Azul Garg Department: [facility] Date of Visit: 06/05/2014 [facility] [address] [place] [address] Diagnoses this visit Your diagnoses were Atypical chest pain and Inflammation of the esophagus. You were seen by You were seen by Delfin Lynch MD. Follow-up Information Follow up with Jannette Samaniego DO On 06/06/2014. Specialty: Family Medicine Why: @2:00PM Contact information: [address] [facility] [address] Follow up with [facility]. Specialty: Emergency Medicine Why: If symptoms worsen Contact information: [address] [place] [address] [phone] Discharge References/Attachments GERD (MONGOLIAN) Appointments for Next 60 Days 06/06/2014 2:00 PM HOSPITAL DISCHARGE [place] [address] Family Medicine [[id number]] 30 min Please check in for your appointment with Jannette Samaniego in the [facility]. Please arrive 15 minutes prior to your [...] notice of cancellation. Take [address] to [facility]. Go east to [place] Turn left into clinic and [...] are the prescriptions that you need to cigar packer and picker. You may get the following medications from [...] contain Tylenol?? (acetaminophen), including Vicodin??, Tylenol #3??, Godfrey??, Lortab??, and Percocet??. You should not take [...] 06/05/2014 6:15 PM CDT Azul Garg Department: [facility] Date of Visit: 06/05/2014 [facility] [address] [place] [address] ` It is very important that you [...] you have any questions, call us at [phone]. I have received this information and understand [...] - 06/05/2014 4:20 PM CDT Performed at [facility], [facility] [place] [address] Delfin Lynch MD LAB_1 Performing Organization Address [...] - 06/05/2014 3:58 PM CDT Performed at [facility], [address] [place] [address] Delfin Lynch MD LAB_1 Performing Organization Address City/[facility]/ZIP Code Phon e Number HP CONVERSION ECG 12 Lead Outpatient (06/05/2014 1:56 PM CDT) P athologist Signature Ventricular Rate 112 BPM [facility] Atrial Rate 112 BPM [facility] P-R Interval 162 ms [facility] QRS Duration 84 ms [facility] QT 330 ms [facility] QTc 450 ms [facility] P Russell 51 degrees [facility] R Russell 70 degrees [facility] T Russell 34 degrees [facility] Specimen (Source) Anatomical Collection Method Collection Time Re ceived Time Location / / Volume Laterality 06/05/2014 1:56 PM CDT Narrative [facility] - 05/17/2019 11:58 AM CDT Sinus tachycardia Otherwise normal ECG No previous ECGs available Confirmed by DELFIN LYNCH ([id number]), makeup editor CARLY LY () on 06/05/2014 10:58:13 PM Procedure Note Epic, Internal Processing - 05/19/2019Fo rmatting of this note might be different from the original. Sinus tachycardia Otherwise normal ECG No previous ECGs available Confirmed by DELFIN LYNCH ([id number]), makeup editor CARLY LY () on 06/05/2014 10:58:13 PM Jose Alfredo Virk MD PN ECG ORDERABLES Performing Organization Address [facility] Phon e Number MUSE [facility] [address] [place] [address] documented in this encounter Visit Diagnoses Diagnosis [...] triage. documented in this encounter Care Teams Directional Drill Operator Relationship Specialty Start Date End Date Non Pn, Clinician, PCP - General 06/05/14 10/14/15 [place] [address] documented as of this encounter
--- OUTSIDE RECORDS SUMMARY | 2022-01-23 08:22 | XMS_ITS | Encounter Summary ---
:1980 Author Organization [facility] Address [address] [place] [address] Care Team Providers Name Role Phone Zion Sorto MD Primary Care Provider Reason for Visit Reason Onset Date Comments QUESTIONS, GENERAL 04/07/2011 Encounter Details Date Type Department Care Team Description 04/07/2011 Telephone Careline Unassigned, Provider QUESTIONS, GENERAL [address] [place], [place] [address] [place] [address] Social History Tobacco Use Types Packs/Day Years [...] back to make appt. Sandhya To, RN HEATER Martin Jean - 04/07/2011 4:36 PM CST [...] entered in the pharmacy field. JANIE TUBBS [place]INLE IN [place] HEATER documented in this encounter Plan of Treatment Not on filedocumented as of this encounter Visit Diagnoses Not on filedocumented in this encounter Care Teams Cow Tender Relationship Specialty Start Date End Date Zion Sorto MD PCP - General 07/16/04 06/04/[address] [place] [address] documented as of this encounter
--- OUTSIDE RECORDS SUMMARY | 2022-01-23 08:22 | XMS_ITS | Encounter Summary ---
:1980 Author Organization [facility] Address [address] [place] [address] Care Team Providers Name Role Phone Zion Sorto MD Primary Care Provider Reason for Visit Reason Comments APPOINTMENT REQUEST Referral for GDM Encounter Details Date Type Department Care Team Description 12/23/2021 Telephone [facility] 3800 Nurse, P3800 End APPOINTMENT REQUEST Endocrinology [address] (Referral for GDM) [address] [facility] [place] [id number] Social History Tobacco Use Types Packs/Day Years Used Date Smoking Tobacco: Never Smokeless Tobacco: Never Alcohol Use Standard Drinks/Week Comments No 0 (1 standard drink = 0.6 oz pure alcoho l) Sex Assigned at Date Recorded Not on file documented as of this encounter Nursing Notes Nadya Parker - 12/23/2021 3:09 PM CST Faxed referral rec[facility] from [facility] Records sent to scan doc LEADER documented in this encounter Plan of Treatment Not on filedocumented as of this encounter Visit Diagnoses Not on filedocumented in this encounter Care Teams Egyptologist Relationship Specialty Start Date End Date Zion Sorto MD PCP - General 10/15/15 [address] [place] [address] documented as of this encounter
--- OUTSIDE RECORDS SUMMARY | 2022-01-23 08:23 | XMS_ITS | Encounter Summary ---
:1980 Author Organization [employer] Address [address] [place] [address] Care Team Providers Name Role Phone Judith Almeida MD Primary Care Provider Encounter Details Date Type Department Care Team Description 11/28/2001 Office Visit [facility] Judith Baldwin MD [facility] [address] [place] [address] N [address] (Wo rk) Social History Tobacco [...] almost 5 years old. She works in [employer]. She was also concerned about feeling of [...] patient was precepted with Dr. Martin Luong. [facility] Dictated: 11/28/2001 12:25:00 Transcribed: 11/29/2001 11:13:39 Doc #: [id number] PATIENT NAME: AZUL MCCLELLAN VISIT DATE: 11/28/2001 AGE: 21Y [facility] Provider Signature Page 2 Confidential Medical Record [facility] [address] [place] [address] Page Patient: AZUL MCCLELLAN Visit Date: 11/28/2001 Judith Almeida MD Date of : 1980 VISIT DATE: 11/28/2001 AGE: 21Y [facility] Provider Signature documented in this encounter Plan of Treatment Not on filedocumented as of this encounter Visit Diagnoses Not on filedocumented in this encounter Care Teams Nuclear Test Technician Relationship Specialty Start Date End Date Judith Almeida MD PCP - General 11/28/01 07/15/04 [address] [place] [address] documented as of this encounter
--- OUTSIDE RECORDS SUMMARY | 2022-01-23 08:23 | XMS_ITS | Encounter Summary ---
:1980 Author Organization [facility] Address [address] [facility] [place] [address] Care Team Providers Name Role Phone Bebeto Roth MD Unavailable Astrid Rios PA-C Unavailable Kenton Katz MD Unavailable Unavailable Karen Veliz DO Primary Care Provider Encounter Details Date Type Department Care Team Description 07/11/2020 Records - [facility] CONVERSION Provider, Histor ical Social History Tobacco [...] on filedocumented in this encounter Care Teams Automatic Casting Machine Operator Relationship Specialty Start Date End Date Karen Veliz DO PCP - General Family Medicine 04/03/[address] [place] [address] Bebeto Roth MD Orthopedics 07/09/[address] [place] [address] Astrid Rios PA-C Physician Manager Application Physician Manager Application - 07/09/14 Surgical Kenton Katz Assigned PCP 02/02/20 08/27/20 MD Feliberto NO INFO AVAILABLE documented as of this encounter
--- OUTSIDE RECORDS SUMMARY | 2022-01-23 08:23 | XMS_ITS | Encounter Summary ---
:1980 [facility] Address [address] [place] [address] Care Team Providers Name Role Phone Judith Almeida MD Primary Care Provider Encounter Details Date Type Department Care Team Description 10/05/2002 Office Visit [facility]O MARBELLA DEFAULT Unassigned, ACUTE PH ARYNGITIS(SORE Provider THROAT) [address] [place] [address] Social History Tobacco Use Types Packs/Day Years Used Date Smoking Tobacco: Never Assessed Sex Assigned at Date Recorded Not on file documented as of this encounter Plan of Treatment Not on filedocumented as of this encounter Visit Diagnoses Diagnosis Acute pharyngitis documented in this encounter Care Teams Calculating Machine Mechanic Relationship Specialty Start Date End Date Judith Almeida MD PCP - General 11/28/01 07/15/04 [address] [place], [place] [address] documented as of this encounter
--- OUTSIDE RECORDS SUMMARY | 2022-01-23 08:23 | XMS_ITS | Encounter Summary ---
:1980 Author Organization [facility] Address [address] [place] [address] Care Team Providers Name Role Phone Judith Almeida MD Primary Care Provider Encounter Details Date Type Department Care Team Description 03/07/2002 Orders Only [facility] Maxx Mccarty MD Laboratory [address] [place] [id number] [place] [address] [phone] Social History Tobacco Use Types Packs/Day Years Used Date Smoking Tobacco: Never Assessed Sex Assigned at Date Recorded Not on file documented as of this encounter Plan of Treatment Not on filedocumented as of this encounter Procedures Procedure Name Priority Date/Time Associated Diagnosis Comme nts HCG, QUANTITATIVE, Waiting 03/07/2002 9:35 PM Res ults for this SERUM RN OBGYN procedure ar e in the results section. documented in this encounter Results HCG, QUANT., SERUM (03/07/2002 9:35 PM RN OBGYN) P athologist Signature HCG, Quant. 453 mIU/ml [facility] Preg. Specimen Anatomical Collection Method Collection Time Receive d Time (Source) Location / / Volume Laterality 03/07/2002 9:35 PM 3 9:43 RN OBGYN PM RN OBGYN Maxx Mccarty MD LAB_1 Performing Organization Address City/State/ZIP Code Phon e Number [address] [address] [place], [place] [phone] documented in this encounter Visit Diagnoses Not on filedocumented in this encounter Care Teams Sfdc Developer Relationship Specialty Start Date End Date Judith Almeida MD PCP - General 11/28/01 07/15/04 [address] [place] [address] documented as of this encounter
--- OUTSIDE RECORDS SUMMARY | 2022-01-23 08:23 | XMS_ITS | Encounter Summary ---
:1980 Author Organization [facility] Address [address] [place] [address] Care Team Providers Name Role Phone Judith Almeida MD Primary Care Provider Encounter Details Date Type Department Care Team Description 11/28/2001 Orders Only Kaylin Almeida MD [address] [facility] [address] (Wo rk) Social History [...] Component Value Ref Test Analysis Performed At [facility] Range Method Time Signature Specimen Throat Swab [facility] Description Special None [facility] Requests Culture No Beta [facility] Hemolytic Streptococcus Isolated Report Status Final [facility] Report Status [id number] [facility] Specimen Anatomical Collection Method Collection Time Receive d Time (Source) Location / / Volume Laterality 11/28/2001 9:35 AM 2 CDT 11:52 AM CDT Judith Almeida MD LAB_1 Performing Organization Address City/State/ZIP Code Phon e Number [address] [address] [place], [place] [phone] documented in this encounter Visit Diagnoses Not on filedocumented in this encounter Care Teams Seating Upholsterer Relationship Specialty Start Date End Date Judith Almeida MD PCP - General 11/28/01 07/15/04 [address] [place] [address] documented as of this encounter
--- OUTSIDE RECORDS SUMMARY | 2022-01-23 08:23 | XMS_ITS | Encounter Summary ---
:1980 Author Organization [employer] Address [address] [place] [address] Care Team Providers Name Role Phone Judith Almeida MD Primary Care Provider Reason for Visit Reason Comments ABDOMINAL PAIN Encounter Details Date Type Department Care Team Description 03/08/2002 Telephone Careline Anitha Marr, ABDOMINAL PAIN [address] [place], [place] [address] [facility] [phone] [facility] [address] Social History Tobacco Use Types Packs/Day Years Used Date Smoking Tobacco: Never Assessed Sex Assigned at Date Recorded Not on file documented as of this encounter Nursing Notes 03/08/2002 11:59 PM ELECTRICIAN SUBSTATION SUPERVISOR >> PEG A JENSEN MonMar 08, 2002 [...] Overseer Relationship Specialty Start Date End Date Judith Almeida MD PCP - General 11/28/01 07/15/04 [address] [place] [address] documented as of this encounter
--- OUTSIDE RECORDS SUMMARY | 2022-01-23 08:23 | XMS_ITS | Encounter Summary ---
:1980 Author Organization [facility] Address [address] [place] [address] Care Team Providers Name Role Phone Judith Almeida MD Primary Care Provider Encounter Details Date Type Department Care Team Description 03/07/2002 Orders Only [facility] Maxx Mccarty MD Laboratory [address] [place] [id number] [place] [address] [id number] [phone] Social History Tobacco Use Types Packs/Day Years Used Date Smoking Tobacco: Never Assessed Sex Assigned at Date Recorded Not on file documented as of this encounter Plan of Treatment Not on filedocumented as of this encounter Procedures Procedure Name Priority Date/Time Associated Diagnosis Comme nts WET PREP Waiting 03/07/2002 8:35 PM Results f or this CERTIFIED MEDICAL CODING SPECIALIST procedure are i n the results section . documented in this encounter Results WET PREP (03/07/2002 8:35 PM CERTIFIED MEDICAL CODING SPECIALIST) [facility] gist Method Time Signature Trichomonas No Trichomonas REGIONS seen Yeast No Yeast Found REGIONS Clue Cells Clue Cells REGIONS present Specimen Anatomical Collection Method Collection Time Receive d Time (Source) Location / / Volume Laterality 03/07/2002 8:35 PM 3 9:24 CERTIFIED MEDICAL CODING SPECIALIST PM CERTIFIED MEDICAL CODING SPECIALIST Maxx Mccarty MD LAB_1 Performing Organization Address City/State/ZIP Code Phon e Number [address] [id number] [place], [place] [phone] documented in this encounter Visit Diagnoses Not on filedocumented in this encounter Care Teams Marine Service Manager Relationship Specialty Start Date End Date Judith Almeida MD PCP - General 11/28/01 07/15/04 [address] [place] [address] documented as of this encounter
--- OUTSIDE RECORDS SUMMARY | 2022-01-23 08:23 | XMS_ITS | Encounter Summary ---
:1980 Author Organization [facility] Address [address] [facility] [place] [address] Care Team Providers Name Role Phone Bebeto Roth MD Unavailable Astrid Rios PA-C Unavailable Kenton Katz MD Unavailable Unavailable Karen Veliz DO Primary Care Provider Encounter Details Date Type Department Care Team Description 07/11/2020 Records - [facility] CONVERSION Provider, Histor ical Social History [...] on filedocumented in this encounter Care Teams Sand Blaster Relationship Specialty Start Date End Date Karen Veliz DO PCP - General Family Medicine 04/03/[address] [place] [address] Bebeto Roth MD Orthopedics 07/09/[address] [place] [address] Astrid Rios PA-C Physician Dispute Coordinator Physician Dispute Coordinator - 07/09/14 Surgical Kenton Katz Assigned PCP 02/02/20 08/27/20 MD Feliberto NO INFO AVAILABLE documented as of this encounter
--- OUTSIDE RECORDS SUMMARY | 2022-01-23 08:23 | XMS_ITS | Encounter Summary ---
:1980 Author Organization [facility] Address [address] [place] [address] Care Team Providers Name Role Phone Zion Sorto MD Primary Care Provider Encounter Details Date Type Department Care Team Description 07/14/2004 Correspondence None Unknown, Physici an REGIONS CONSENT/RELEASE [address] [place] [address] (Wo rk) Social History Tobacco Use Types Packs/Day Years Used Date Smoking Tobacco: Never Assessed Sex Assigned at Date Recorded Not on file documented as of this encounter Progress Notes Unknown, Physician - 07/14/2004 12:00 AM CDT documented in this encounter Plan of Treatment Not on filedocumented as of this encounter Visit Diagnoses Not on filedocumented in this encounter Care Teams Dispatcher Relay Relationship Specialty Start Date End Date Zion Sorto MD PCP - General 07/16/04 06/04/14 [address] [place], [place] [address] documented as of this encounter
--- OUTSIDE RECORDS SUMMARY | 2022-01-23 08:23 | XMS_ITS | Encounter Summary ---
:1980 Author Organization [facility] Address [address] [place] [address] Care Team Providers Name Role Phone Zion Sorto MD Primary Care Provider Encounter Details Date Type Department Care Team Description 07/14/2004 Correspondence Emergency Dept Emergency, [facility] D/C PATIENT [address] [facility] Provider ACKNOWLEDGEMENT [place], [place] [id number] Social History Tobacco Use Types Packs/Day Years Used Date Smoking Tobacco: Never Assessed Sex Assigned at Date Recorded Not on file documented as of this encounter Progress Notes Emergency, Provider - 07/14/2004 12:00 AM CDT documented in this encounter Plan of Treatment Not on filedocumented as of this encounter Visit Diagnoses Not on filedocumented in this encounter Care Teams Pulmonologist Relationship Specialty Start Date End Date Zion Sorto MD PCP - General 07/16/04 06/04/14 [address] [place] [facility] [place] [address] documented as of this encounter
--- OUTSIDE RECORDS SUMMARY | 2022-01-23 08:23 | XMS_ITS | Encounter Summary ---
:1980 Author Organization [facility] Address [address] [place] [address] Care Team Providers Name Role Phone Judith Almeida MD Primary Care Provider Encounter Details Date Type Department Care Team Description 03/07/2002 Orders Only [facility] Maxx Mccarty MD Laboratory [address] [address] [place] [address] [phone] Social History Tobacco Use Types Packs/Day Years Used Date Smoking Tobacco: Never Assessed Sex Assigned at Date Recorded Not on file documented as of this encounter Plan of Treatment Not on filedocumented as of this encounter Procedures Procedure Name Priority Date/Time Associated Diagnosis Comme nts GC (N. Waiting 03/07/2002 8:35 PM Results f or this GONORRHOEAE)(14 WOOD INSPECTOR procedure ar e in YEARS AND OLDER) the results section. CHLAMYDIA (14 YEARS Routine 03/07/2002 8:35 PM Re sults for this AND OLDER) WOOD INSPECTOR procedure are i n the results section. documented in this encounter Results GC (N. GONORRHOEAE) - 1 SWAB (03/07/2002 8:35 PM WOOD INSPECTOR) Component Value Ref Test Analysis Performed At [facility] Range Method Time Signature GC (N. Negative NEG REGIONS gonorrhoeae) Test Performed by PCR Assay Performed at [facility] Source CERVIX REGIONS Specimen Anatomical Collection Method Collection Time Receive d Time (Source) Location / / Volume Laterality 03/07/2002 8:35 PM 3 9:23 WOOD INSPECTOR PM WOOD INSPECTOR Maxx Mccarty MD LAB_1 Performing Organization Address [facility] Phon e Number [address] [address] [place], [place] [phone] CHLAMYDIA - 1 SWAB (03/07/2002 8:35 PM WOOD INSPECTOR) [facility] Method Time Signature Chlamydia Negative NEG REGIONS Test Performed by PCR Assay Performed at [facility] Laboratory Source CERVIX REGIONS Specimen Anatomical Collection Method Collection Time Receive d Time (Source) Location / / Volume Laterality 03/07/2002 8:35 PM 3 9:23 WOOD INSPECTOR PM WOOD INSPECTOR Maxx Mccarty MD LAB_1 Performing Organization Address [facility] Phon e Number [address] [address] [place], [place] [phone] documented in this encounter Visit Diagnoses Not on filedocumented in this encounter Care Teams Soup Mixer Relationship Specialty Start Date End Date Judith Almeida MD PCP - General 11/28/01 07/15/04 [address] [place] [address] documented as of this encounter
--- OUTSIDE RECORDS SUMMARY | 2022-01-23 08:23 | XMS_ITS | Encounter Summary ---
:1980 Author Organization [facility] Address [address] [place] [address] Care Team Providers Name Role Phone Judith Almeida MD Primary Care Provider Encounter Details Date Type Department Care Team Description 10/05/2002 Orders Only [facility] Destin Lorenzo Laboratory MD [address] [place] [id number] [place], [place] [phone] (Wo rk) Social History Tobacco Use Types [...] Value Ref Test Analysis Performed At [facility] Range Method Time Signature Specimen Throat Swab REGIONS Description Special None REGIONS Requests Culture No Beta REGIONS Hemolytic Streptococcus Isolated Report Status Final REGIONS Report Status [id number] REGIONS Specimen Anatomical Collection Method Collection Time Receive d Time (Source) Location / / Volume Laterality 10/05/2002 6:28 PM 3 7:38 CDT PM CDT Destin Lorenzo Jr., MD LAB_1 Performing Organization Address City/State/[place] [address] [place], [place] [phone] documented in this encounter Visit Diagnoses Not on filedocumented in this encounter Care Teams Personal Financial Planner Relationship Specialty Start Date End Date Judith Almeida MD PCP - General 11/28/01 07/15/04 [address] [place] [address] documented as of this encounter
--- OUTSIDE RECORDS SUMMARY | 2022-01-23 08:23 | XMS_ITS | Encounter Summary ---
:1980 Author Organization [facility] Address [address] [place] [address] Care Team Providers Name Role Phone Judith Almeida MD Primary Care Provider Encounter Details Date Type Department Care Team Description 07/27/2002 Office Visit MALO MARBELLA DEFAULT Unassigned, Provider LICE [address] [place] [address] Social History Tobacco Use Types Packs/Day Years [...] Mak MD Transcribed: 07/29/2002 06:38:40 Doc #: [id number] cc: Page 1 Patient Name: AZUL MCCLELLAN Visit Date: 07/27/2002 EMERGENCY MEDICINE NOTE CONFIDENTIAL MEDICAL RECORD [address] [phone] Page 1 Patient: AZUL MCCLELLAN Location: [facility]: Date of : 1980 Visit Date: 07/27/2002 EMERGENCY MEDICINE NOTE documented in this encounter Plan of Treatment Not on filedocumented as of this encounter Visit Diagnoses Diagnosis Pediculus capitis (head louse) documented in this encounter Care Teams Pari Mutuel Ticket Seller Relationship Specialty Start Date End Date Judith Almeida MD PCP - General 11/28/01 07/15/04 [address] [place] [address] documented as of this encounter
--- OUTSIDE RECORDS SUMMARY | 2022-01-23 08:23 | XMS_ITS | Encounter Summary ---
:1980 Author Organization [facility] Address [address] [place] [address] Care Team Providers Name Role Phone Non Pn, Clinician Primary Care Provider Unavailable Encounter Details Date Type Department Care Team Description 03/13/2001 Orders Only Rigo Camara MD [address] [place], [place] [address] [place] [address] (Wo rk) Social History Tobacco Use Types Packs/Day Years Used Date Smoking Tobacco: Never Assessed Sex Assigned at Date Recorded Not on file documented as of this encounter Plan of Treatment Not on filedocumented as of this encounter Procedures Procedure Name Priority Date/Time Associated Diagnosis Comme nts URINE CULTURE Routine 03/13/2001 5:38 PM Results for this CHIEF SCHOOL FINANCE OFFICER procedure are i n the results section . documented in this encounter Results URINE CULTURE (03/13/2001 5:38 PM CHIEF SCHOOL FINANCE OFFICER) [facility] Method Time Signature Specimen Urine REGIONS Description Straight Cath/[place] Special None REGIONS Requests Culture No Growth REGIONS After 1 Day Report Status Final REGIONS Report Status [id number] REGIONS Specimen Anatomical Collection Method Collection Time Receive d Time (Source) Location / / Volume Laterality 03/13/2001 5:38 PM 2 2:00 CHIEF SCHOOL FINANCE OFFICER AM CHIEF SCHOOL FINANCE OFFICER Rigo Abreu MD LAB_1 Performing Organization Address City/State/ZIP Code Phon e Number [address] [address] [place], [place] [phone] documented in this encounter Visit Diagnoses Not on filedocumented in this encounter Care Teams Executive Sales Manager Relationship Specialty Start Date End Date Non Pn, Clinician, PCP - General 06/05/14 10/14/15 [place] [address] documented as of this encounter
--- OUTSIDE RECORDS SUMMARY | 2022-01-23 08:23 | XMS_ITS | Encounter Summary ---
:1980 Author Organization [place] Address [facility] [place] [address] Care Team Providers Name Role Phone Bebeto Roth MD Unavailable Astrid Rios PA-C Unavailable Francisco Metz MD Primary Care Provider [phone] Francisco Metz MD Unavailable [phone] Encounter Details Date Type Department Care Team [...] contact Unable to assess 01/23/2020 7:04 AM SULFUR CHLORIDE OPERATOR with someone who was confirmed or suspected to have Coronavirus / COVID-19? documented as of this encounter Plan of Treatment Not on filedocumented as of this encounter Visit Diagnoses Not on filedocumented in this encounter Care Teams Director Of Teacher Education Relationship Specialty Start Date End Date Francisco Metz PCP - General Family Practice 11/14/18 04/02/20 MD Stevie Bebeto Roth MD Orthopedics 07/09/[address] [place], [place] [address] Atsrid Rios PA-C Physician Infant Teacher Physician Infant Teacher - 07/09/14 Surgical Francisco Metz Assigned PCP 07/04/19 02/01/20 MD Stevie [place] [address] [place] [address] [place] [address] documented as of this encounter
--- OUTSIDE RECORDS SUMMARY | 2022-01-23 08:23 | XMS_ITS | Encounter Summary ---
:1980 Author Organization [facility] Address [address] [place] [address] Care Team Providers Name Role Phone Non Pn, Clinician Primary Care Provider Unavailable Encounter Details Date Type Department Care Team Description 03/13/2001 Orders Only Rigo Camara MD [address] [place], [place] [address] [place], [place] [phone] (Wo rk) Social History Tobacco Use Types Packs/Day Years Used Date Smoking Tobacco: Never Assessed Sex Assigned at Date Recorded Not on file documented as of this encounter Plan of Treatment Not on filedocumented as of this encounter Procedures Procedure Name Priority Date/Time Associated Diagnosis Comme nts WET PREP Waiting 03/13/2001 5:38 PM Results f or this DOUGHNUT FRYER procedure are i n the results section . documented in this encounter Results WET PREP (03/13/2001 5:38 PM DOUGHNUT FRYER) [facility] gist Method Time Signature Trichomonas No Trichomonas REGIONS seen Yeast No Yeast Found REGIONS Clue Cells No Clue Cells REGIONS seen Specimen Anatomical Collection Method Collection Time Receive d Time (Source) Location / / Volume Laterality 03/13/2001 5:38 PM 2 6:07 DOUGHNUT FRYER PM DOUGHNUT FRYER Rigo Abreu MD LAB_1 Performing Organization Address City/State/ZIP Code Phon e Number [address] [id number] [place], [place] [phone] documented in this encounter Visit Diagnoses Not on filedocumented in this encounter Care Teams Dough Panner Relationship Specialty Start Date End Date Non Pn, Clinician, PCP - General 06/05/14 10/14/15 [place] [address] documented as of this encounter
--- OUTSIDE RECORDS SUMMARY | 2022-01-23 08:23 | XMS_ITS | Encounter Summary ---
:1980 Author Organization [facility] Address [address] [place] [address] Care Team Providers Name Role Phone Judith Almeida MD Primary Care Provider Encounter Details Date Type Department Care Team Description 03/10/2002 Orders Only [facility] Palak Lucero MD Laboratory [address] [place], [place] [id number] [place] [address] [place] [address] [phone] Social History Tobacco Use Types Packs/Day Years Used Date Smoking Tobacco: Never Assessed Sex Assigned at Date Recorded Not on file documented as of this encounter Plan of Treatment Not on filedocumented as of this encounter Procedures Procedure Name Priority Date/Time Associated Diagnosis Comme nts HCG, QUANTITATIVE, Waiting 03/10/2002 1:59 PM Res ults for this SERUM COMPUTER LAB ASSISTANT procedure ar e in the results section. documented in this encounter Results HCG, QUANT., SERUM (03/10/2002 1:59 PM COMPUTER LAB ASSISTANT) P athologist Signature HCG, Quant. 220 mIU/ml REGIONS Preg. Specimen Anatomical Collection Method Collection Time Receive d Time (Source) Location / / Volume Laterality 03/10/2002 1:59 PM 3 2:09 COMPUTER LAB ASSISTANT PM COMPUTER LAB ASSISTANT Evan Lucero MD LAB_1 Performing Organization Address City/State/ZIP Code Phon e Number [address] [address] [place], [place] [phone] documented in this encounter Visit Diagnoses Not on filedocumented in this encounter Care Teams Aerospace Engineer Officer Armament Relationship Specialty Start Date End Date Judith Almeida MD PCP - General 11/28/01 07/15/04 [address] [place] [address] documented as of this encounter
--- OUTSIDE RECORDS SUMMARY | 2022-01-23 08:23 | XMS_ITS | Encounter Summary ---
:1980 Author Organization [facility] Address [address] [facility] [place] [address] Care Team Providers Name Role Phone Bebeto Roth MD Unavailable Astrid Rios PA-C Unavailable Kenton Katz MD Unavailable Unavailable Karen Veliz DO Primary Care Provider Encounter Details Date Type Department Care Team Description 07/12/2020 Records - [facility] CONVERSION Provider, Histor ical Social History [...] 12:00 AM Result s for this VIEWS UNDERGROUND ROOF BOLTER procedure are i n the results section. documented in this encounter Results XR Knee Left 3 Views (03/10/2006 12:00 AM UNDERGROUND ROOF BOLTER) Anatomical Region Laterality Modality Thigh, Knee, Leg Left Other Specimen (Source) Anatomical Location Collection Method / Collectio n Time Received Time / Laterality Volume Narrative 03/10/2006 12:00 AM UNDERGROUND ROOF BOLTER See Historical Hospital Medical Record f or documentation Procedure Note Provider, Historical - 07/12/2020Formatt ing of this note might be different from the original. See Historical Hospital Medical Record f or documentation Historical Provider IMG DIAGNOSTIC IMAGING ORDER TAYLOR documented in this encounter Visit Diagnoses Not on filedocumented in this encounter Care Teams Site Leader Relationship Specialty Start Date End Date Karen Veliz DO PCP - General Family Medicine 04/03/[address] [place] [address] Bebeto Roth MD Orthopedics 07/09/[address] [place] [address] Astrid Rios PA-C Physician Grinding Room Inspector Physician Grinding Room Inspector - 07/09/14 Surgical Kenton Katz Assigned PCP 02/02/20 08/27/20 MD Feliberto NO INFO AVAILABLE documented as of this encounter
--- OUTSIDE RECORDS SUMMARY | 2022-01-23 08:23 | XMS_ITS | Encounter Summary ---
:1980 Author Organization [employer] Address [address] [place] [address] Care Team Providers Name Role Phone Judith Almeida MD Primary Care Provider Encounter Details Date Type Department Care Team Description 03/10/2002 Office Visit REDO MARBELLA DEFAULT Unassigned, SPON ABO RT [id number]; Provider ABDOMINAL PAIN LLQ [address] [place] [address] Social History Tobacco Use Types Packs/Day Years [...] 220. I spoke with Dr. Bai of BOTTLE HOUSE CLEANERS SUPERVISOR concerning follow up of the patient. ASSESSMENT: Spontaneous . PLAN: The patient was given EPIC instructions for miscarriage. She was instructed to make a follow up appointment with [facility] and was given their phone number for first available this week. She was also given the number for the [facility]SE [facility]PERVIS[facility] clinic to try and make an appointment there if she is unable to be seen at the [facility]. She was told she would need to return if her pain was uncontrolled and she has vaginal bleeding of more than 1 pad per hour. DISPOSITION: Discharged to home in stable condition. lmn Dictated: 03/10/2002 15:29:25 Melvi Tadeo PA-C Transcribed: 03/11/2002 09:43:17 Patient seen with Evan Lucero MD Doc #: [id number] Page 2 Patient Name: AZUL MCCLELLAN Visit Date: 03/10/2002 EMERGENCY MEDICINE NOTE CONFIDENTIAL MEDICAL RECORD [address] [phone] Page 1 Patient: AZUL MCCLELLAN Location: [facility]: Date of : 1980 Visit Date: 03/10/2002 EMERGENCY MEDICINE NOTE SITIONAL KINDERGARTEN TEACHER documented in this encounter Plan of Treatment Not on filedocumented as of this encounter Visit Diagnoses Diagnosis Unspecified spontaneous without mention of complication Abdominal pain, left lower quadrant documented in this encounter Care Teams Mineral Ore Processing Labourer Relationship Specialty Start Date End Date Judith Almeida MD PCP - General 11/28/01 07/15/04 [address] [place] [address] documented as of this encounter
--- OUTSIDE RECORDS SUMMARY | 2022-01-23 08:23 | XMS_ITS | Encounter Summary ---
:1980 Author Organization [facility] Address [address] [place] [address] Care Team Providers Name Role Phone Judith Almeida MD Primary Care Provider Encounter Details Date Type Department Care Team Description 03/07/2002 Orders Only [facility] Maxx Mccarty MD Laboratory [address] [facility] [address] [place] [address] [place] [address] [phone] Social History Tobacco Use Types Packs/Day Years Used Date Smoking Tobacco: Never Assessed Sex Assigned at Date Recorded Not on file documented as of this encounter Plan of Treatment Not on filedocumented as of this encounter Procedures Procedure Name Priority Date/Time Associated Comments Diagnosis URINE MICROSCOPIC Routine 03/07/2002 8:35 PM Resu lts for this DRY PASTE SUPERVISOR procedure are i n the results section. UA CONDITIONAL UC Waiting 03/07/2002 8:35 PM Resu lts for this DRY PASTE SUPERVISOR procedure are i n the results section. TEST Waiting 03/07/2002 8:35 PM Results for this (URINE) DRY PASTE SUPERVISOR procedure are i n the results section. documented in this encounter Results (ABNORMAL) URINE MICROSCOPIC (03/07/2002 8:35 PM DRY PASTE SUPERVISOR) P athologist Signature RBC'S 5 (H) 0 - 3 /hpf REGIONS WBC'S 0 0 - 5 /hpf REGIONS Epith, Squamous Few /hpf REGIONS Specimen Anatomical Collection Method Collection Time Receive d Time (Source) Location / / Volume Laterality 03/07/2002 8:35 PM 3 8:40 DRY PASTE SUPERVISOR PM DRY PASTE SUPERVISOR Maxx Mccarty MD LAB_1 Performing Organization Address [facility] Phon e Number [address] [address] [place], [place] [phone] (ABNORMAL) UA CONDITIONAL UC (03/07/2002 8:35 PM DRY PASTE SUPERVISOR) Patholo gist Method Time Signature Conditional UC Not REGIONS Culture Indicated Urine Comments Microscopic REGIONS exam indicated Urine Color Yellow REGIONS Urine Clarity Clear REGIONS Specific 1.017 1.005 - REGIONS [place],Ur 1.030 pH, Urine 6.0 4.5 - 8.0 [...] Volume Laterality 03/07/2002 8:35 PM 3 8:40 DRY PASTE SUPERVISOR PM DRY PASTE SUPERVISOR Maxx Mccarty MD LAB_1 Performing Organization Address [facility] Phon e Number [address] [address] [place], [place] [phone] TEST (URINE) (03/07/2002 8:35 PM DRY PASTE SUPERVISOR) Analysis Performed At Patho logist Time Signature HCG, Urine Positive REGIONS Greater than 25 mIU Specimen Anatomical Collection Method Collection Time Receive d Time (Source) Location / / Volume Laterality 03/07/2002 8:35 PM 3 8:40 DRY PASTE SUPERVISOR PM DRY PASTE SUPERVISOR Maxx Mccarty MD LAB_1 Performing Organization Address [facility] Phon e Number [address] [address] [place], [place] [phone] documented in this encounter Visit Diagnoses Not on filedocumented in this encounter Care Teams Dampproofer Relationship Specialty Start Date End Date Judith Almeida MD PCP - General 11/28/01 07/15/04 [address] [place] [address] documented as of this encounter
--- OUTSIDE RECORDS SUMMARY | 2022-01-23 08:23 | XMS_ITS | Encounter Summary ---
:1980 Author Organization [employer] Address [address] [place] [address] Care Team Providers Name Role Phone Judith Almeida MD Primary Care Provider Encounter Details Date Type Department Care Team Description 07/24/2002 Office Visit [facility] MARBELLA SERRATO Unassigned, ACUTE TO NSILLITIS; Provider ACUTE PHARYNGITIS(SORE THROAT) [address] [place] [address] Social History Tobacco Use Types Packs/Day Years [...] Dictating for on-site staff physician Doc #: [id number] cc: Page 1 Patient Name: AZUL MCCLELLAN Visit Date: 07/24/2002 EMERGENCY MEDICINE NOTE CONFIDENTIAL MEDICAL RECORD [address] [address] Page 1 Patient: AZUL MCCLELLAN Location: [facility]: Date of : 1980 Visit Date: 07/24/2002 EMERGENCY MEDICINE NOTE documented in this encounter Plan of Treatment Not on filedocumented as of this encounter Visit Diagnoses Diagnosis Acute tonsillitis Acute pharyngitis documented in this encounter Care Teams Entry Level Software Developer Relationship Specialty Start Date End Date Judith Almeida MD PCP - General 11/28/01 07/15/04 [address] [place] [address] documented as of this encounter
--- OUTSIDE RECORDS SUMMARY | 2022-01-23 08:23 | XMS_ITS | Encounter Summary ---
:1980 Author Organization [employer] Address [address] [place] [address] Care Team Providers Name Role Phone Unassigned, Provider Primary Care Provider Unavailable Encounter Details Date Type Department Care Team Description 03/13/2001 Office Visit [facility] Emergency Dept UTI; [address] [facility]. DYSURIA; [place] [address] SCREEN FOR VENEREAL DIS; [phone] PREG EXAM-PREG UNCONFIRM Social History Tobacco Use [...] patient is to follow up at the [facility] or [facility] in 10 days. adf Dictated: 03/13/2001 18:42:23 Cristóbal Bull MD Transcribed: 03/13/2001 21:08:44 Patient seen with Rigo Abreu MD Doc #: [id number] Page 2 Patient Name: AZUL TELLEZ Visit Date: 03/13/2001 EMERGENCY MEDICINE NOTE CONFIDENTIAL MEDICAL RECORD [address] [address] Page 1 Patient: AZUL TELLEZ Location: [facility]: Date of : 1980 Visit Date: 03/13/2001 EMERGENCY MEDICINE NOTE OYMENT AND CLAIMS AIDE documented in this encounter Plan of Treatment Not on filedocumented as of this encounter Visit Diagnoses Diagnosis Urinary tract infection, site not specif ied Dysuria Screening examination for venereal disea se examination or test documented in this encounter Care Teams Form Tamper Operator Relationship Specialty Start Date End Date Unassigned, Provider PCP - General 04/16/00 11/27/[address] [place] [address] documented as of this encounter
--- OUTSIDE RECORDS SUMMARY | 2022-01-23 08:23 | XMS_ITS | Encounter Summary ---
:1980 Author Organization [employer] Address [address] [place] [address] Care Team Providers Name Role Phone Judith Almeida MD Primary Care Provider Encounter Details Date Type Department Care Team Description 11/28/2001 Office Visit [facility] Martin Molina M D ACUTE PHARYNGITIS(SORE THROAT); [facility] [address] [place] [address] Social History Tobacco Use Types Packs/Day Years Used Date Smoking Tobacco: Never Assessed Sex Assigned at Date Recorded Not on file documented as of this encounter Plan of Treatment Not on filedocumented as of this encounter Visit Diagnoses Diagnosis Acute pharyngitis Other dyspnea and respiratory abnormalit y documented in this encounter Care Teams Director Of Surgery Relationship Specialty Start Date End Date Judith Almeida MD PCP - General 11/28/01 07/15/04 [address] [place] [address] documented as of this encounter
--- OUTSIDE RECORDS SUMMARY | 2022-01-23 08:23 | XMS_ITS | Encounter Summary ---
:1980 Author Organization [employer] Address [address] [place] [address] Care Team Providers Name Role Phone Zion Sorto MD Primary Care Provider Encounter Details Date Type Department Care Team Description 07/05/2004 Office Visit [facility] Zion Sorto M D ABSENCE OF MENSTRUATION; [facility] [address] [place], [place], [place] [address] (Wo rk) Social History Tobacco Use Types [...] Tobacco Status reviewed? (see History Social-Substance) -NO train attendant offered? -NOT APPLICABLE. Aspirin taken daily? -NO BP was taken on the RIGHT arm. BP cuff size used? -Adult Large Health Education given? -NO. Contact phone number [phone] (home) [phone] (work), alternate phone number- Marisol Bowen 07/05/2004 [...] 07/05/2004 18:49:41 Transcribed: 07/07/2004 14:23:59 Doc #: [id number] Page 1 Patient: AZUL MCCLELLAN Confidential Medical Record [facility] [address] [place] [address] Page Patient: AZUL MCCLELLAN Visit Date: 07/05/2004 [...] Results TEST (URINE) (07/05/2004 2:37 PM CDT) [facility] gist Method Time Signature HCG, Urine Positive REGIONS Positive = >25 mIU/ml Performed at [facility] Specimen Anatomical Collection Method Collection Time Receive d Time (Source) Location / / Volume Laterality 07/05/2004 2:37 PM 5 2:38 CDT PM CDT Zion Sorto MD LAB_1 Performing Organization Address City/State/ZIP Code Phon e Number [address] [id number] [place], [place] [phone] documented in this encounter Visit Diagnoses Diagnosis Absence of menstruation state, incidental documented in this encounter Care Teams Core Drier Relationship Specialty Start Date End Date Zion Sorto MD PCP - General 07/16/04 06/04/[address] [place] [address] documented as of this encounter
--- OUTSIDE RECORDS SUMMARY | 2022-01-23 08:23 | XMS_ITS | Encounter Summary ---
:1980 Author Organization [facility] Address [address] [place] [address] Care Team Providers Name Role Phone Judith Almeida MD Primary Care Provider Encounter Details Date Type Department Care Team Description 03/07/[address] [facility] Maxx Mccarty MD Laboratory [address] [place] [id number] [place] [phone] Social History Tobacco Use Types Packs/Day Years Used Date Smoking Tobacco: Never Assessed Sex Assigned at Date Recorded Not on file documented as of this encounter Plan of Treatment Not on filedocumented as of this encounter Procedures Procedure Name Priority Date/Time Associated Diagnosis Comme nts RH(D) TYPING Waiting 03/07/2002 9:35 PM Results f or this MEDICAL OFFICE SPECIALIST procedure are i n the results section . documented in this encounter Results RH(D) TYPING (03/07/2002 9:35 PM MEDICAL OFFICE SPECIALIST) P athologist Signature RH(D) Typing POSITIVE REGIONS Specimen Anatomical Collection Method Collection Time Receive d Time (Source) Location / / Volume Laterality 03/07/2002 9:35 PM 3 9:43 MEDICAL OFFICE SPECIALIST PM MEDICAL OFFICE SPECIALIST Maxx Mccarty MD LAB_1 Performing Organization Address City/State/ZIP Code Phon e Number [address] [address] [place], [place] [phone] documented in this encounter Visit Diagnoses Not on filedocumented in this encounter Care Teams Dealership Manager Relationship Specialty Start Date End Date Judith Almeida MD PCP - General 11/28/01 07/15/04 [address] [place] [address] documented as of this encounter
--- OUTSIDE RECORDS SUMMARY | 2022-01-23 08:23 | XMS_ITS | Encounter Summary ---
:1980 Author Organization [employer] Address [address] [facility] [place] [address] Care Team Providers Name Role Phone Bebeto Roth MD Unavailable Astrid Rios PA-C Unavailable Francisco Metz MD Primary Care Provider [phone] Francisco Metz MD Unavailable [phone] Reason for Visit Reason Comments Consult Diabetes Encounter Details Date Type Department Care Team Description 01/23/2020 Virtual Visit [facility] Kenton Katz Diet controlled [place] Endocrinolog y MD Feliberto gestational diabetes [address] [facility] NO INFO mellitus (GDM) in [place], [place] AVAILABLE third trimester [address] (Primary Dx) [phone] Social History Tobacco Use Types Packs/Day Years [...] contact Unable to assess 01/23/2020 7:04 AM AUTOMOTIVE DISMANTLER with someone who was confirmed or suspected [...] soon as the diagnosis of is made. MOTIVE DISMANTLER documented in this encounter Progress Notes Kenton [...] would you like to be contacted at? [phone] How would you like to obtain your [...] not been able to meet with a hoop machine operator yet. Her fiancee had COVID and she [...] [place] [phone] as an E & M code Kenton Katz M.D CC: Dr Loyola Francisco [address] [address] Kristina See CMA - 01/23/2020 1:00 PM CST Copy of OV note mailed as requested to: Dr Loyola Francisco [facility] [address] [id number] MOTIVE DISMANTLER documented in this encounter Plan of Treatment Not on filedocumented as of this encounter Visit Diagnoses Diagnosis Diet controlled gestational diabetes callum litus (GDM) in third trimester - Primary documented in this encounter Care Teams Sandblast Or Shotblast Equipment Tender Relationship Specialty Start Date End Date Francisco Metz PCP - General Family Practice 11/14/18 04/02/20 MD Stevie Bebeto Roth MD Orthopedics 07/09/[address] [place] [address] Astrid Rios PA-C Physician Head Resident Physician Head Resident - 07/09/14 Surgical Francisco Metz Assigned PCP 07/04/19 02/01/20 MD Stevie [place] [address] [place]IO [address] documented as of this encounter
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
--- OUTSIDE RECORDS SUMMARY | 2022-01-23 08:23 | XMS_ITS | Encounter Summary ---
:1980 Author Organization [facility] Address [address] [place] [address] Care Team Providers Name Role Phone Judith Almeida MD Primary Care Provider Encounter Details Date Type Department Care Team Description 10/05/2002 Orders Only [facility] Destin Lorenzo Laboratory MD [address] [place] [id number] [place] [phone] (Wo rk) Social History Tobacco Use Types [...] RAPID STREP THROAT (10/05/2002 6:28 PM CDT) [facility] Method Time Signature Rapid Strep, Direct test REGIONS Throat negative, culture sent Specimen Anatomical Collection Method Collection Time Receive d Time (Source) Location / / Volume Laterality 10/05/2002 6:28 PM 3 6:33 CDT PM CDT Destin Lorenzo Jr., MD LAB_1 Performing Organization Address City/State/ZIP Code Phon e Number [address] [id number] [place], [place] [phone] documented in this encounter Visit Diagnoses Not on filedocumented in this encounter Care Teams Manager Zone Relationship Specialty Start Date End Date Judith Almeida MD PCP - General 11/28/01 07/15/04 [address] [place] [address] documented as of this encounter
--- OUTSIDE RECORDS SUMMARY | 2022-01-23 08:23 | XMS_ITS | Encounter Summary ---
:1980 Author Organization [facility] Address [address] [place] [address] Care Team Providers Name Role Phone Non Pn, Clinician MD Primary Care Provider Unavailable Encounter Details Date Type Department Care Team Description 03/13/2001 Orders Only Rigo Camara MD [address] [place], [place] [address] [place] [address] [phone] (Wo rk) Social History Tobacco Use Types Packs/Day Years Used Date Smoking Tobacco: Never Assessed Sex Assigned at Date Recorded Not on file documented as of this encounter Plan of Treatment Not on filedocumented as of this encounter Procedures Procedure Name Priority Date/Time Associated Diagnosis Comme nts GC (N. Waiting 03/13/2001 5:38 PM Results f or this GONORRHOEAE)(14 PETROLEUM PRODUCTION ENGINEER procedure ar e in YEARS AND OLDER) the results section. CHLAMYDIA (14 YEARS Waiting 03/13/2001 5:38 PM Re sults for this AND OLDER) PETROLEUM PRODUCTION ENGINEER procedure are i n the results section. documented in this encounter Results GC (N. GONORRHOEAE) - 1 SWAB (03/13/2001 5:38 PM PETROLEUM PRODUCTION ENGINEER) Component Value Ref Test Analysis Performed At [facility] Range Method Time Signature GC (N. Negative NEG REGIONS gonorrhoeae) Test Performed by PCR Assay Performed at [facility] Source CERVIX REGIONS Specimen Anatomical Collection Method Collection Time Receive d Time (Source) Location / / Volume Laterality 03/13/2001 5:38 PM 2 6:07 PETROLEUM PRODUCTION ENGINEER PM PETROLEUM PRODUCTION ENGINEER Rigo Abreu MD LAB_1 Performing Organization Address City/State/ZIP Code Phon e Number [address] [address] [place], [place] [phone] CHLAMYDIA - 1 SWAB (03/13/2001 5:38 PM PETROLEUM PRODUCTION ENGINEER) [facility] Method Time Signature Chlamydia Negative NEG REGIONS Test Performed by PCR Assay Performed at [facility] Source CERVIX REGIONS Specimen Anatomical Collection Method Collection Time Receive d Time (Source) Location / / Volume Laterality 03/13/2001 5:38 PM 2 6:07 PETROLEUM PRODUCTION ENGINEER PM PETROLEUM PRODUCTION ENGINEER Rigo Abreu MD LAB_1 Performing Organization Address [facility] Phon e Number [address] [address] [place], [place] [phone] documented in this encounter Visit Diagnoses Not on filedocumented in this encounter Care Teams Title Coordinator Relationship Specialty Start Date End Date Non Pn, Clinician, PCP - General 06/05/14 10/14/15 [place] [address] documented as of this encounter
--- OUTSIDE RECORDS SUMMARY | 2022-01-23 08:23 | XMS_ITS | Encounter Summary ---
:1980 Author Organization [employer] Address [address] [place] [address]. [place] [address] Care Team Providers Name Role Phone Bebeto Roth MD Unavailable Astrid Rios PA-C Unavailable Francisco Metz MD Primary Care Provider [phone] Francisco Metz MD Unavailable [phone] Encounter Details Date Type Department Care Team Description 01/15/2020 Medical Correspondence [facility] Scan, ENDOCRINOLOGY Health Info Mgmt Non-Provider REFERRAL [facility] AND [address] [address] Social History Tobacco Use Types [...] filedocumented in this encounter Care Teams Emergency Veterinarian Relationship Specialty Start Date End Date Francisco Metz PCP - General Family Practice 11/14/18 04/02/20 MD Stevie Bebeto Roth MD Orthopedics 07/09/[address] [place], [place] [address] Astrid Rios PA-C Physician Leather Coverer Physician Leather Coverer - 07/09/14 Surgical Francisco Metz Assigned PCP 07/04/19 02/01/20 MD Stevie [facility] [address] [address] [place] [address] documented as of this encounter
--- OUTSIDE RECORDS SUMMARY | 2022-01-23 08:23 | XMS_ITS | Encounter Summary ---
:1980 Author Organization [facility] Address [address] [place] [address] Care Team Providers Name Role Phone Judith Almeida MD Primary Care Provider Encounter Details Date Type Department Care Team Description 03/07/2002 Orders Only [facility] Maxx Mccarty MD Laboratory [address] [place] [id number] [place] [phone] Social History Tobacco Use Types Packs/Day Years Used Date Smoking Tobacco: Never Assessed Sex Assigned at Date Recorded Not on file documented as of this encounter Plan of Treatment Not on filedocumented as of this encounter Procedures Procedure Name Priority Date/Time Associated Diagnosis Comme nts ACETAMINOPHEN Waiting 03/07/2002 9:35 PM Results for this YARN PACKER procedure are i n the results section . documented in this encounter Results (ABNORMAL) ACETAMINOPHEN (03/07/2002 9:35 PM YARN PACKER) P athologist Signature Acetaminophen 4 (L) 10 - 20 REGIONS mcg/ml Specimen Anatomical Collection Method Collection Time Receive d Time (Source) Location / / Volume Laterality 03/07/2002 9:35 PM 3 9:43 YARN PACKER PM YARN PACKER Maxx Mccarty MD LAB_1 Performing Organization Address City/State/ZIP Code Phon e Number [address] [id number] [place], [place] [phone] documented in this encounter Visit Diagnoses Not on filedocumented in this encounter Care Teams Tag Machine Operator Relationship Specialty Start Date End Date Judith Almeida MD PCP - General 11/28/01 07/15/04 [address] [place] [address] documented as of this encounter
--- OUTSIDE RECORDS SUMMARY | 2022-01-23 08:23 | XMS_ITS | Encounter Summary ---
:1980 Author Organization [employer] Address [address] [place] [address] Care Team Providers Name Role Phone Judith Almeida MD Primary Care Provider Encounter Details Date Type Department Care Team Description 08/22/2003 Emergency Room [facility] Emergency Dept Figueroa Becerra MD [facility] [address] [place] [address] [place] [address] [phone] (Wo rk) Social History Tobacco Use Types [...] She is deferring to fill out a certified financial planner form here in the emergency room. CHIEF [...] Becerra MD Transcribed: 08/25/2003 09:52:44 Doc #: [id number] Page 1 Patient Name: AZUL MCCLELLAN Visit Date: 08/22/2003 EMERGENCY MEDICINE NOTE CONFIDENTIAL MEDICAL RECORD [address] [address] Page 1 Patient: AZUL MCCLELLAN Location: [facility]: Date of : 1980 Visit Date: 08/22/2003 EMERGENCY MEDICINE NOTE documented in this encounter Plan of Treatment Not on filedocumented as of this encounter Visit Diagnoses Diagnosis Otalgia, unspecified documented in this encounter Care Teams Edge Blacker Relationship Specialty Start Date End Date Judith Almeida MD PCP - General 11/28/01 07/15/04 [address] [place] [address] documented as of this encounter
--- OUTSIDE RECORDS SUMMARY | 2022-01-23 08:23 | XMS_ITS | Encounter Summary ---
:1980 Author Organization [facility] Address [address] [place] [address] Care Team Providers Name Role Phone Non Pn, Clinician MD Primary Care Provider Unavailable Encounter Details Date Type Department Care Team Description 03/13/2001 Orders Only Rigo Camara MD [address] [place], [place] [address] [place] [address] [phone] (Wo rk) Social History Tobacco Use Types Packs/Day Years Used Date Smoking Tobacco: Never Assessed Sex Assigned at Date Recorded Not on file documented as of this encounter Plan of Treatment Not on filedocumented as of this encounter Procedures Procedure Name Priority Date/Time Associated Comments Diagnosis URINE MICROSCOPIC Routine 03/13/2001 5:38 PM Resu lts for this ELEMENTARY SECRETARY procedure are i n the results section. UA CONDITIONAL UC Waiting 03/13/2001 5:38 PM Resu lts for this ELEMENTARY SECRETARY procedure are i n the results section. TEST Waiting 03/13/2001 5:38 PM Results for this (URINE) ELEMENTARY SECRETARY procedure are i n the results section. documented in this encounter Results (ABNORMAL) URINE MICROSCOPIC (03/13/2001 5:38 PM ELEMENTARY SECRETARY) P athologist Signature RBC'S 15 (H) 0 - 3 /hpf REGIONS WBC'S 23 (H) 0 - 5 /hpf REGIONS Bact Many REGIONS Epith, Squamous Few /hpf REGIONS Specimen Anatomical Collection Method Collection Time Receive d Time (Source) Location / / Volume Laterality 03/13/2001 5:38 PM 2 6:08 ELEMENTARY SECRETARY PM ELEMENTARY SECRETARY Rigo Abreu MD LAB_1 Performing Organization Address City/[facility] Phon e Number [address] [address] [place], [place] [phone] (ABNORMAL) UA CONDITIONAL UC (03/13/2001 5:38 PM ELEMENTARY SECRETARY) Patholo gist Method Time Signature Conditional Urine Cultured REGIONS Culture Urine Comments Microscopic REGIONS exam indicated Urine Color [place] REGIONS Urine Clarity Hazy REGIONS Specific 1.013 1.005 - REGIONS [place],Ur 1.030 pH, Urine 5.0 4.5 - 8.0 [...] Volume Laterality 03/13/2001 5:38 PM 2 6:08 ELEMENTARY SECRETARY PM ELEMENTARY SECRETARY Rigo Abreu MD LAB_1 Performing Organization Address City/[facility] Phon e Number [address] [address] [place], [place] [phone] TEST (URINE) (03/13/2001 5:38 PM ELEMENTARY SECRETARY) Analysis Performed At Patho logist Time Signature HCG, Urine Negative REGIONS Less than 20 mIU Specimen Anatomical Collection Method Collection Time Receive d Time (Source) Location / / Volume Laterality 03/13/2001 5:38 PM 2 6:08 ELEMENTARY SECRETARY PM ELEMENTARY SECRETARY Rigo Abreu MD LAB_1 Performing Organization Address City/[facility] Phon e Number [address] [address] [place], [place] [phone] documented in this encounter Visit Diagnoses Not on filedocumented in this encounter Care Teams Supervisor Hard Candy Relationship Specialty Start Date End Date Non Pn, Clinician, PCP - General 06/05/14 10/14/15 [place] [address] documented as of this encounter
--- OUTSIDE RECORDS SUMMARY | 2022-01-23 08:23 | XMS_ITS | Clinical Summary ---
:1980 Author Organization [place] Address [address] [facility] [place] [address] Care Team Providers Name Role Phone Bebeto Roth MD Unavailable Astrid Rios PA-C Unavailable Karen Veliz DO Primary Care Provider Karen Veliz DO Unavailable Allergies Active Allergy Reactions Severity Noted Date Comments Seasonal Allergies 10/04/2011 Medications Medication Sig Dispensed Refills Start Date End Date Status fluticasone (FLONASE) 50 Lando 1-2 sprays 16 g 3 07/06/19 18 [...] be differe nt from the original. [email or web address] Problem Noted Date S/P spinal fusion 10/23/2017 Frequent UTI 12/14/2016 Anemia, iron deficiency 12/14/2016 Pain in thoracic spine 08/07/2014 Other orthopedic aftercare(V54.89) 08/07/2014 Grief 03/13/2014 Overview: Pt's boyfriend of heroin overdose d ay after 2013. Seeing [facility] for therapy Dermatofibroma of left thigh 11/22/2012 [facility] 12/19/2011 Overview: Tier 0 DX V65.8 REPLACED WITH [id number] [facility] (05/21/2012) Anxiety 12/19/2011 Congenital scoliosis 12/19/2011 Scoliosis [...] OB PROVIDERS 1.Keri Elias 2. Eva Hogan ([phone]) CARE PLAN ?? Consults: ?? Ultrasounds: 08/03/16 [...] Comments Blood Pressure 94/56 02/18/2019 7:21 PM INVENTORY CONTROLLER Pulse 56 02/18/2019 7:21 PM INVENTORY CONTROLLER Temperature 36.9 ??C (98.4 ??F) 02/18/2019 3:50 PM INVENTORY CONTROLLER Respiratory Rate 16 02/18/2019 7:21 PM INVENTORY CONTROLLER Oxygen Saturation 94% 02/18/2019 7:21 PM INVENTORY CONTROLLER Inhaled Oxygen Concentration - - Weight 73.5 kg (162 lb) 02/18/2019 3:50 PM INVENTORY CONTROLLER Height 160 cm (5' 3) 04/18/2018 8:42 AM INVENTORY CONTROLLER Body Mass Index 28.7 04/18/2018 8:42 AM INVENTORY CONTROLLER Plan of Treatment Health Maintenance Due Date [...] 64 Years) Medical Devices Implanted Type Area Lead Performance Support Analyst Device Shelf Model / Serial Identifier Expiration / Lot Date Graft Bone Crush Canc 30ml [id number] Bone/Tissu N/A: Spine MUSCULOSKELET AL 08/28/2020 [id number] / Implanted: Qty: 1 on 10/23/2017 by Bebeto Roth MD at [facility] e/Biologic Thoracic HANSEN [id number] / Imp Scr Danek Legacy Breakoff Set 5.5mm Ti [id number] Metallic N/A: Spine MEDTRONIC, [id number] / Implanted: Qty: 5 on 10/23/2017 by Bebeto Roth MD at [facility] Hardware/A Thoracic INC-DANEK / nchor Axial [place] N/A: Spine MEDTRONIC [id number] / Implanted: Qty: 2 on 10/23/2017 by Bebeto Roth MD at [facility] Thoracic INC-DANEK / Explanted Type Area Lead Performance Support Analyst Device Shelf Model / Identifier Expiration Serial / Date Lot 5 Set Screws N/A: Spine Explanted: Qty: 1 on 10/23/[address] [facility] Thoracic Insurance Payer Benefit Plan / Subscriber ID Effective Phone Address T [facility] [id number] 2016-Pres [phone] [address] O ADVANTAGE ent [address] [place] [address] [place] (Home) [place] [address] [place] Personal/Family Self [address] [place] (Home) [place] [address] [place] Third Green Party Self 1980 [address] (Home) [place] [address] Advance Directives For more information, please contact: [phone] Latest Code Status on File Code Status Date Activated Date Inactivated Comments Full Code 10/25/2017 10:23 AM 10/27/2017 8:35 AM Code Status History Code Status Date Activated Date Inactivated Comments Full Code 10/23/2017 2:18 PM 10/25/2017 10:23 AM Full Code 03/05/2017 11:49 AM 10/23/2017 2:18 PM Care Teams Fishing Captain Relationship Specialty Start Date End Date Karen Veliz DO PCP - General Family Medicine 04/03/202019 [place] [address] Bebeto Roth MD Orthopedics 07/09/[address] [place] [address] Astrid Rios PA-C Physician Rotary Drier Operator Physician Rotary Drier Operator - 07/09/14 Surgical Karen Veliz DO Assigned PCP 08/28/202019 [place] [address]
--- OUTSIDE RECORDS SUMMARY | 2022-01-23 08:23 | XMS_ITS | Encounter Summary ---
:1980 Author Organization [facility] Address [address] [place] [address] Care Team Providers Name Role Phone Judith Almeida MD Primary Care Provider Reason for Visit Reason Comments bugs in her hair Encounter Details Date Type Department Care Team Description 07/27/2002 Telephone Careline Ani Aldridge RN [address] [place], [place] [address] [facility] [phone] [place] [address] Social History Tobacco Use Types [...] filedocumented in this encounter Care Teams Manager Wireless Relationship Specialty Start Date End Date Judith Almeida MD PCP - General 11/28/01 07/15/04 [address] [place] [address] documented as of this encounter
--- OUTSIDE RECORDS SUMMARY | 2022-01-23 08:23 | XMS_ITS | Encounter Summary ---
:1980 Author Organization [facility] Address [address] [place] [address] Care Team Providers Name Role Phone Judith Almeida MD Primary Care Provider Encounter Details Date Type Department Care Team Description 11/28/2001 Orders Only Kaylin Almeida MD [address] [facility] [address] (Wo rk) Social [...] RAPID STREP THROAT (11/28/2001 9:28 AM CDT) [facility] Method Time Signature Rapid Strep, Direct test REGIONS Throat negative, culture sent Specimen Anatomical Collection Method Collection Time Receive d Time (Source) Location / / Volume Laterality 11/28/2001 9:28 AM 2 9:29 CDT AM CDT Judith Almeida MD LAB_1 Performing Organization Address City/State/ZIP Code Phon e Number [address] [id number] [place], [place] [phone] documented in this encounter Visit Diagnoses Not on filedocumented in this encounter Care Teams Casino Attendant Relationship Specialty Start Date End Date Judith Almeida MD PCP - General 11/28/01 07/15/04 [address] [place] [address] documented as of this encounter
--- OUTSIDE RECORDS SUMMARY | 2022-01-23 08:23 | XMS_ITS | Encounter Summary ---
:1980 Author Organization [employer] Address [address] [place] [address] Care Team Providers Name Role Phone Judith Almeida MD Primary Care Provider Encounter Details Date Type Department Care Team Description 03/07/2002 Office Visit Maxx Bryant, AB DOMINAL PAIN LUQ; POISONING-AROM ANALGESICS NEC; [address] [facility] EARLY PREG-ANTEPART; [place], [place] PREG STATE, I NCIDENTAL; [address] ADV EFF AROM ANALGSC NEC [phone] (Wo rk) Social History Tobacco Use Types [...] 16, temperature is 99.0, SaO2 is 98%. Boyce coma scale is 15. GENERAL: The patient [...] Monday, to have a repeat HCG quant. [facility] Dictated: 03/08/2002 00:14:37 Mark Covington MD Transcribed: 03/08/2002 09:50:55 Patient seen with Maxx Mccarty MD Doc #: [id number] cc: Judith Almeida MD Primary Page 2 Patient Name: AZUL MCCLELLAN Visit Date: 03/07/2002 EMERGENCY MEDICINE NOTE CONFIDENTIAL MEDICAL RECORD [address] [phone] Page 1 Patient: AZUL MCCLELLAN Location: ER HPN: Date of : 1980 Visit Date: 03/07/2002 EMERGENCY MEDICINE NOTE TECHNICIAN documented in this encounter Plan of Treatment Not on filedocumented as of this encounter Procedures Procedure Name Priority Date/Time Associated Comments Diagnosis US PELVIS-COMPLETE Routine 03/07/2002 9:50 PM Res ults for this CARE TECHNICIAN procedure are i n the results section. US PELVIC, IVT Routine 03/07/2002 9:50 PM Results for this ADDITIONAL CARE TECHNICIAN procedure are i n the results section. documented in this encounter Results US PELVIC- IVT ADDITIONAL (03/07/2002 9:50 PM CARE TECHNICIAN) Component Value Ref Test Analysis Performed Pathologis [...] / / Volume Laterality 03/07/2002 9:50 PM CARE TECHNICIAN Maxx Mccarty MD RAD US/RH US PELVIS-COMPLETE (03/07/2002 9:50 PM CARE TECHNICIAN) Component Value Ref Test Analysis Performed Pathologis [...] / / Volume Laterality 03/07/2002 9:50 PM CARE TECHNICIAN Maxx Mccarty MD RAD US/RH documented in this encounter Visit Diagnoses Diagnosis Abdominal pain, left upper quadrant Poisoning by aromatic analgesics, not el sewhere classified(965.4) Poisoning by aromatic analgesics, not el sewhere classified Unspecified hemorrhage in early pregnanc y, antepartum state, incidental Aromatic analgesics, not elsewhere class ified, causing adverse effect in therapeutic use documented in this encounter Care Teams Buying Agent Relationship Specialty Start Date End Date Judith Almeida MD PCP - General 11/28/01 07/15/04 [address] [place] [address] documented as of this encounter
--- OUTSIDE RECORDS SUMMARY | 2022-01-23 08:24 | XMS_ITS | Encounter Summary ---
:1980 Author Organization [place] Address [address] [facility] [place] [address] Care Team Providers Name Role Phone Bebeto Roth MD Unavailable Astrid Rios PA-C Unavailable Keri Elias MD Primary Care Provider Unavailable Encounter Details Date Type Department Care Team Description 01/19/2018 Orders Only [place] Keri Elias Acne vu lgaris (Primary Medicine Clinic MD [place] Dx) [address] [place] [address], [address] [place], [place] [address] Social History Tobacco Use Types [...] acne documented in this encounter Care Teams Mechanical Test Engineer Relationship Specialty Start Date End Date Keri Elias PCP - General Family Practice 03/12/15 9 MD Ira Glez David Wayne, MD Orthopedics 07/09/[address] [place] [address] Astrid Rios PA-C Physician Er Physician Physician Er Physician - 07/09/14 Surgical documented as of this encounter
--- OUTSIDE RECORDS SUMMARY | 2022-01-23 08:24 | XMS_ITS | Encounter Summary ---
:1980 Author Organization [place] Address [address] [facility] [place] [address] Care Team Providers Name Role Phone Bebeto Roth MD Unavailable Astrid Rios PA-C Unavailable Francisco Metz MD Primary Care Provider [phone] Reason for Visit Reason Comments Confirmation Of Encounter Details Date Type Department Care Team Description 01/08/2019 Office Visit Narda Family Lakisha Nielsen cy test positive (Primary Dx); Medicine Clinic DO Lacy Screening for condition [address] [address] [address] [place], [place] [phone] [address] Social History Tobacco Use Types Packs/Day Years Used Date Smoking Tobacco: Never Smokeless Tobacco: Never Alcohol Use Standard Drinks/Week Comments No 0 (1 standard drink = 0.6 oz pure alcoho l) Sex Assigned at Date Recorded Not on file documented as of this encounter Last Filed Vital Signs Vital Sign Reading Time Taken Comments Blood Pressure 115/79 01/08/2019 1:52 PM DUCT LAYER HELPER Pulse 121 01/08/2019 1:52 PM DUCT LAYER HELPER Temperature 36.2 ??C (97.2 ??F) 01/08/2019 1:52 PM DUCT LAYER HELPER Respiratory Rate 16 01/08/2019 1:52 PM DUCT LAYER HELPER Oxygen Saturation 100% 01/08/2019 1:52 PM DUCT LAYER HELPER Inhaled Oxygen Concentration - - Weight 75.6 kg (166 lb 9.6 oz) 01/08/2019 1:52 PM DUCT LAYER HELPER Height - - Body Mass Index 29.51 04/18/2018 8:42 AM DUCT LAYER HELPER documented in this encounter Patient Instructions Patient Lakisha Gonzalez, - 01/08/2019 1:40 PM DUCT LAYER HELPER Here is the plan from today's visit 1. Screening for condition - HCG Qualitative Urine (UPT) ([facility]) 2. test positive Results by [facility] - CBC with Plt ([facility]) - Hemoglobin A1c ([facility]) - Vit-Fe Fumarate-FA ( MULTIVITAMIN W/IRON) 27-0.8 [...] and ultrasound Thank you for coming to [facility] today. Lab Testing: If you had lab testing today and your results are reassuring or normal they will be mailed to you or sent through SnapLayout within 7 days. If the lab tests need quick action we will call you with the results. The phone number we will call with results is # [phone] (home) . If this is not the best numberplease call our clinic and change the number. Medication Refills: If you need any refills please call your pharmacy and they will contact us. If you need to nut picker your refill at a new pharmacy, please contact the new pharmacy directly. The new pharmacy will help you get your medications transferred faster. Scheduling: If you have any concerns about today's visit or wish to schedule another appointment please call ouroffice during normal business hours [phone] (8- 5:00 M-F) If a referral was made to a [facility] and you don't get a call from [facility] please call [phone]. If a Mammogram was ordered for you at [facility] call [phone] to schedule or change yourappointment. If you had an XRay/CT/Ultrasound/MRI ordered the number is [phone] to schedule or change your radiology appointment. Medical Concerns: If you have urgent medical concerns please call [phone] at any time of the day. Cyrus Nielsen DO LAYER HELPER documented in this encounter Progress Notes Lakisha [...] Her last 2 deliveries have been with [facility]. Problem, Medication and Allergy Lists were reviewed [...] with the final plan. Cyrus Nielsen DO [facility] [employer] Miller Helper PGY-2 LAYER HELPER Katalina Ching MD - 01/08/2019 1:40 PM CST Preceptor Attestation: Patient seen, evaluated and discussed with the resident. I have verified the content of the note, which accurately reflects my assessment of the patient and the plan of care. Supervising Physician: Katalina Ching MD LAYER HELPER documented in this encounter Plan of Treatment Not on filedocumented as of this encounter Procedures Procedure Name Priority Date/Time Associated Comments Diagnosis HCL CBC WITH Routine 01/08/2019 2:41 PM Screening for Results for this PLATELETS, DIFF DUCT LAYER HELPER condition procedure ar e in the results section. HEMOGLOBIN A1C Routine 01/08/2019 2:34 PM test Resul ts for this (LABDAQ) DUCT LAYER HELPER positive procedure are i n the results section. HCG QUALITATIVE URINE Routine 01/08/2019 1:59 PM Screening for Results for this (LABDAQ) DUCT LAYER HELPER condition procedure are i n the results section. documented in this encounter Results (ABNORMAL) CBC with platelets differential (01/08/2019 2:41 PM DUCT LAYER HELPER) [facility] Method Time Signature WBC 8.9 4.0 - 01/08/2019 UNIVERSITY 11.0 9:11 PM DUCT LAYER HELPER IN MEDICAL 10e9/L [facility] RBC Count 4.64 3.8 - 5.2 01/08/2019 [facility] 10e12/L 9:11 PM [facility] Hemoglobin 10.9 (L) 11.7 - 01/08/2019 [facility] 15.7 g/dL 9:11 PM [facility] Hematocrit 36.2 35.0 - 01/08/2019 [facility] 47.0 % 9:11 PM [facility] MCV 78 78 - 100 01/08/2019 [facility] fl 9:11 PM [facility] MCH 23.5 (L) 26.5 - 01/08/2019 [facility] 33.0 pg 9:11 PM [facility] MCHC 30.1 (L) 31.5 - 01/08/2019 [facility] 36.5 g/dL 9:11 PM [facility] RDW 15.2 (H) 10.0 - 01/08/2019 [facility] 15.0 % 9:11 PM [facility] Platelet Count 359 150 - 450 01/08/2019 [facility] 10e9/L 9:11 PM [facility] Diff Method Automated 01/08/2019 [facility] Method 9:11 PM [facility] % Neutrophils 69.7 % 01/08/2019 [facility] 9:11 PM [facility] % Lymphocytes 18.5 % 01/08/2019 [facility] 9:11 PM [facility] % Monocytes 9.4 % 01/08/2019 [facility] 9:11 PM [facility] % Eosinophils 1.7 % 01/08/2019 [facility] 9:11 PM [facility] % Basophils 0.4 % 01/08/2019 [facility] 9:11 PM [facility] % Immature 0.3 % 01/08/2019 [facility] Granulocytes 9:11 PM [facility] Nucleated RBCs 0 0 /100 01/08/2019 [facility] 9:11 PM [facility] Absolute 6.2 1.6 - 8.3 01/08/2019 [facility] Neutrophil 10e9/L 9:11 PM [facility] Absolute 1.7 0.8 - 5.3 01/08/2019 [facility] Lymphocytes 10e9/L 9:11 PM [facility] Absolute 0.8 0.0 - 1.3 01/08/2019 [facility] Monocytes 10e9/L 9:11 PM DUCT LAYER HELPER [facility] Absolute 0.2 0.0 - 0.7 01/08/2019 [facility] Eosinophils 10e9/L 9:11 PM DUCT LAYER HELPER [facility] Absolute 0.0 0.0 - 0.2 01/08/2019 [facility] Basophils 10e9/L 9:11 PM [facility] Abs Immature 0.0 0 - 0.4 01/08/2019 [facility] Granulocytes 10e9/L 9:11 PM DUCT LAYER HELPER [facility] Absolute 0.0 01/08/2019 [facility] Nucleated RBC 9:11 PM DUCT LAYER HELPER [facility] Specimen Anatomical Collection Method Collection Time Receive d Time (Source) Location / / Volume Laterality Blood specimen VENOUS BLOOD / 01/08/2019 2:41 PM 01/08 5:00 (specimen) Unknown DUCT LAYER HELPER PM DUCT LAYER HELPER Katalina Ching MD LAB - BLOOD ORDERABLES Performing Organization Address [facility]/[place]IP [facility] [place] Number [facility] [address] [place] [address] [facility] Hemoglobin A1c ([facility]) (01/08/2019 2:34 PM DUCT LAYER HELPER) athologist Signature Hemoglobin A1C 4.8 4.1 - 5.7 [facility] LABDAQ Specimen Anatomical Collection Method Collection Time Receive d Time (Source) Location / / Volume Laterality Blood specimen VENOUS BLOOD / 01/08/2019 2:34 PM 01/08 2:35 (specimen) Unknown DUCT LAYER HELPER PM DUCT LAYER HELPER Katalina Ching MD LAB - LABDAQ Performing Organization Address [facility] Phon e Number [facility] [address] [place] [phone] [facility] (ABNORMAL) HCG Qualitative Urine (UPT) ([facility]) (01/08/2019 1:59 PM DUCT LAYER HELPER) [facility] gist Method Time Signature HCG Qual POSITIVE (A) Negative [facility] Urine [facility] LABDAQ Specimen Anatomical Collection Method Collection Time Receive d Time (Source) Location / / Volume Laterality Urine specimen 01/08/2019 1:59 PM 019 2:00 (specimen) DUCT LAYER HELPER PM DUCT LAYER HELPER Katalina Ching MD LAB - LABDAQ Performing Organization Address City/State/ZIP Code Phon e Number [facility] [address] [place], [place] [address] [facility] documented in this encounter Visit Diagnoses Diagnosis test positive - Primary examination or test, positive result Screening for condition Screening for unspecified condition documented in this encounter Care Teams Microbiological Analyst Relationship Specialty Start Date End Date Francisco Metz PCP - General Family Practice 11/14/18 04/02/20 MD Stevie Bebeto Roth MD Orthopedics 07/09/14 [facility] [address] [place] [address] Astrid Rios PA-C Physician Patient Observer Physician Patient Observer - 07/09/14 Surgical documented as of this encounter
--- OUTSIDE RECORDS SUMMARY | 2022-01-23 08:24 | XMS_ITS | Encounter Summary ---
:1980 Author Organization [place] Address [address] [facility] [place] [address] Care Team Providers Name Role Phone Bebeto [...] filedocumented in this encounter Care Teams Manager Casino Relationship Specialty Start Date End Date Keri Elias PCP - General Family Practice 03/12/15 9 MD Ira Glez David Wayne, MD Orthopedics 07/09/[address] [place] [address] Astrid Rios PA-C Physician Dumper Operator Physician Dumper Operator - 07/09/14 Surgical documented as of this encounter
--- OUTSIDE RECORDS SUMMARY | 2022-01-23 08:24 | XMS_ITS | Encounter Summary ---
:1980 Author Organization [place] Address [facility] [place] [address] Care Team Providers Name Role Phone Bebeto Roth MD Unavailable Astrid Rios PA-C Unavailable Keri Elias MD Primary Care Provider Unavailable Reason for Visit Diagnostic Imaging XR - Closed Specialty Diagnoses / Procedures Referred By Contact Refer red To Contact Diagnoses Scoliosis Kyphosis (acquired) (postural) Bebeto Roht MD Procedures XR Six Foot Standing Extremities [address] [place], [place] [address] Referral ID Status Reason Start Date Expiration Date Visits Requ ested Visits Authorized [id number] Closed 01/10/2018 01/10/2019 1 1 Encounter Details Date Type Department Care Team Description 01/17/2018 Radiant Appointment [facility] Bebeto Roth Scdenny iosis; Center Xray MD Devan Kyphosis (acquired) (postural) [address] [facility] [address] [facility] [address] [place] [address] [phone] Social History Tobacco Use Types Packs/Day Years [...] AM Lin s Results for this EXTREMITIES CPA TAX Kyphosis (acquired) procedur e are in (postural) the results section. documented in this encounter Results XR Six Foot Standing Extremities (01/17/2018 8:40 AM CPA TAX) Anatomical Region Laterality Modality Lower Extremity Computed Radiography Specimen (Source) Anatomical Location Collection Method / Collectio n Time Received Time / Laterality Volume Impressions 01/17/2018 2:07 PM CPA TAX Impression: 1. Fusion instrumentation from T4 throug h L3 without evidence of hardware complication. 2. Mild convex right curvature of the th oracolumbar/lumbar spine with apex at T12. 3. No substantial global coronal imbalan ce. 4. Normal sagittal vertical axis. MADALYN ZARAGOZA MD Narrative 01/17/2018 2:07 PM CPA TAX Exam: XR SPINE COMPLETE SCOLIOSIS 2 VW, [...] No substantial global coronal imbalance. Sagittal Vertical Weinert (A vertical line drawn from the center [...] No substantial global coronal imbalance. Sagittal Vertical Weinert (A vertical line drawn from the center [...] (postural) documented in this encounter Care Teams Racking Machine Operator Relationship Specialty Start Date End Date Keri Elias PCP - General Family Practice 03/12/15 9 MD Ira Glez David Wayne, MD Orthopedics 07/09/[address] [place] [address] Astrid Rios PA-C Physician Benzol Operator Physician Benzol Operator - 07/09/14 Surgical documented as of this encounter
--- OUTSIDE RECORDS SUMMARY | 2022-01-23 08:24 | XMS_ITS | Encounter Summary ---
:1980 Author Organization [place] Address [address] [facility] [place] [address] Care Team Providers Name Role Phone Bebeto Roth MD Unavailable Astrid Rios PA-C Unavailable Francisco Metz MD Primary Care Provider [phone] Reason for Referral Diagnostic Imaging XR (Routine) - Closed Specialty Diagnoses / Procedures Referred By Contact Refer red To Contact Diagnoses Adolescent idiopathic scoliosis of thoracolumbar region Bebeto Roth MD Procedures XR Spine Complete Scoliosis 2 Views [address] [place], [place] [address] Referral ID Status Reason Start Date Expiration Date Visits Requ ested Visits Authorized [id number] Closed 12/31/2018 12/31/2019 1 1 TENER Diagnostic Imaging XR (Routine) - Closed Specialty Diagnoses / Procedures Referred By Contact Refer red To Contact Diagnoses Adolescent idiopathic scoliosis of thoracolumbar region Bebeto Roth MD Procedures XR Six Foot Standing Extremities [address] [place], [place] [address] Referral ID Status Reason Start Date Expiration Date Visits Requ ested Visits Authorized [id number] Closed 12/31/2018 12/31/2019 1 1 TENER Encounter Details Date Type Department Care Team Description 12/31/2018 Orders Only [facility] Orthopaedic Bebeto Roth is (Primary Dx); Clinic MD Devan Adolescent idiopathic scoliosis of thora formerly [facility] 909 [facility] [address] [place] [id number] Social History Tobacco Use Types Packs/Day Years [...] ic Adolescent idiopathic scoliosis of thora formerly [facility] Scoliosis (and kyphoscoliosis), idiopath ic documented in this encounter Care Teams Food Service Assistant Relationship Specialty Start Date End Date Francisco Metz PCP - General Family Practice 11/14/18 04/02/20 MD Stevie Bebeto Roth MD Orthopedics 07/09/14 [facility] [place] [address] Astrid Rios PA-C Physician Rules Examiner Physician Rules Examiner - 07/09/14 Surgical documented as of this encounter
--- OUTSIDE RECORDS SUMMARY | 2022-01-23 08:24 | XMS_ITS | Encounter Summary ---
:1980 Author Organization [place] Address [address] [facility] [place] [address] Care Team Providers Name Role Phone Bebeto Roth MD Unavailable Astrid Rios PA-C Unavailable Francisco Metz MD Primary Care Provider [phone] Reason for Visit Reason Onset Date Comments Call To Schedule Appointment 01/09/2019 NOB appt re quest Encounter Details Date Type Department Care Team Description 01/09/2019 Telephone [facility] [place], Call To Schedule Medicine Clinic KENNY Patterson Appointment (NOB appt [address] [place] [address], request ) [address] [place] [id number] Social History Tobacco Use Types Packs/Day Years [...] (this will be their primary OB provider). R TAXI DRIVER Telephone Encounter - Yesenia Flowers RN - [...] call and close encounter. Yesenia Flowers RN R TAXI DRIVER documented in this encounter Plan of Treatment Not on filedocumented as of this encounter Visit Diagnoses Not on filedocumented in this encounter Care Teams Head Coach Relationship Specialty Start Date End Date Francisco Metz PCP - General Family Practice 11/14/18 04/02/20 MD Stevie Bebeto Roth MD Orthopedics 07/09/14 [facility] [place] [address] Astrid Rios PA-C Physician Jet Man Physician Jet Man - 07/09/14 Surgical documented as of this encounter
--- OUTSIDE RECORDS SUMMARY | 2022-01-23 08:24 | XMS_ITS | Encounter Summary ---
:1980 Author Organization [place] Address [address] [facility] [address] Care Team Providers Name Role Phone Bebeto [...] Member Relationship Specialty Start Date End Date Francisco Metz PCP - General Family Practice 11/14/18 04/02/20 MD Stevie Bebeto Roth MD Orthopedics 07/09/14 [facility] [place] [address] Astrid Rios PA-C Physician Die Assembler Physician Die Assembler - 07/09/14 Surgical documented as of this encounter
--- OUTSIDE RECORDS SUMMARY | 2022-01-23 08:24 | XMS_ITS | Encounter Summary ---
:1980 Author Organization [place] Address [address] [facility] [place] [address] Care Team Providers Name Role Phone Bebeto Roth MD Unavailable Astrid Rios PA-C Unavailable Francisco Metz MD Primary Care Provider Encounter Details Date Type Department Care Team Description 01/09/2019 Orders Only [facility] Iron deficie [facility] Medicine Clinic MD Tamar anemia, unspecified [address] [place], NO INFO AVAILABLE iron deficiency [address] 12/22/2021 anemia type (Primary [place], [place] [address] Dx) [phone] Social History Tobacco Use Types Packs/Day Years [...] Primary documented in this encounter Care Teams Weight Control Lecturer Relationship Specialty Start Date End Date Francisco Metz PCP - General Family Practice 11/14/18 04/02/20 MD Stevie Bebeto Roth MD Orthopedics 07/09/[address] [place] [address] Astrid Rios PA-C Physician Professor Of Kinesiology Physician Professor Of Kinesiology - 07/09/14 Surgical documented as of this encounter
--- OUTSIDE RECORDS SUMMARY | 2022-01-23 08:24 | XMS_ITS | Encounter Summary ---
:1980 Author Organization [place] Address [address] [facility] [place] [address] Care Team Providers Name Role Phone Bebeto Roth MD Unavailable Astrid Rios PA-C Unavailable Francisco Metz MD Primary Care Provider [phone] Francisco Mtez MD Unavailable [phone] Kenton Katz MD Unavailable Unavailable Karen Veliz DO Primary Care Provider Kenton Katz MD Unavailable Unavailable Karen Veliz DO Unavailable Reason for Visit Reason Onset Date Comments Referral 12/25/2019 Encounter Details Date Type Department Care Team Description 12/25/[address] [facility] Francisco Metz, Delores Norris MD [phone] [place] [address] [phone] Social History Tobacco Use Types Packs/Day Years [...] referral. Would like it dated for 10/14/19 LER HAND Telephone Encounter - Cherry Viera - 12/26/2019 12:49 PM CST Will forward to PCP to address. Please advise. Cherry Reyes Crutching Contractor LER HAND Telephone Encounter - RachelMay - 12/25/2019 3:35 PM CST [facility] Family Medicine phone call message - order or referral request from patient: Order or referral being requested: Referral to Physical Therapy At Location: [facility] Additional Details: KENNY Weems states this patient needs a referral for outpatient physical therapy at their location from her primary doctor here. She hasn't had any OB care here and she states that this is the only location she can see her receiving care. Faustina states the patient has attended 10/13 and 10/27. Patient no showed 11/10 Referral only -Specialty Physical Therapy Location [address] [address] [place] to leave a message on voice mail? Yes Primary language: Azerbaijani Hotel Security Officer needed? No Call taken on December 25, 2019 at 3:35 PM by May Rachel Order request route to P SMI TRIAGE Referrals Route to P SMI (Green/[place]/Purple) BREAKDOWN PERSON LER HAND documented in this encounter Plan of Treatment Not on filedocumented as of this encounter Visit Diagnoses Not on filedocumented in this encounter Care Teams Cdl Driver Relationship Specialty Start Date End Date Francisco Metz PCP - General Family Practice 11/14/18 04/02/20 MD Stevie Karen Veliz PCP - General Family Medicine 04/03/[address] [place], [place] [id number] Bebeto Roth MD Orthopedics 07/09/[address] [place], [place] [address] Astrid Rios PA-C Physician Power Electronics Engineer Physician Power Electronics Engineer - 07/09/14 Surgical Francisco Metz Assigned PCP 07/04/19 02/01/20 MD Stevie [place] [id number] [place] [address] [place] [address] Kenton Katz Assigned PCP 02/02/20 08/27/20 MD Feliberto NO INFO AVAILABLE Kenton Katz Assigned Endocrinology 08/28/20 07/23/21 MD Felib[place] Provider NO INFO AVAILABLE Karen Veliz, Assigned PCP 08/28/20 DO [address] [place] [address] documented as of this encounter
--- OUTSIDE RECORDS SUMMARY | 2022-01-23 08:24 | XMS_ITS | Encounter Summary ---
:1980 Author Organization [place] Address [facility] [place] [address] Care Team Providers Name Role Phone Bebeto Roth MD Unavailable Astrid Rios PA-C Unavailable Keri Elias MD Primary Care Provider Unavailable Reason for Visit Reason Comments RECHECK DOS 10/23/17 extrention of jf mcintosh, follow up scoliosis Encounter Details Date Type Department Care Team Description 04/18/2018 Office Visit [facility] Orthopaedic [facility]ebeto Roth [facility] scoliosis of thoracolumbar region (Primary Dx); Clinic MD Devan History of spinal fusion [address] [place] [address] [address]th [address] [place] [address] [phone] Social History Tobacco Use Types Packs/Day Years [...] 68.9 kg (152 lb) 04/18/2018 8:42 AM SALES TRAINING COORDINATOR Height 160 cm (5' 3) 04/18/2018 8:42 AM SALES TRAINING COORDINATOR Body Mass Index 26.93 04/18/2018 8:42 AM SALES TRAINING COORDINATOR documented in this encounter Progress Notes Bebeto Roth MD - 04/18/2018 8:45 AM CST [facility] Orthopedics Bebeto Roth MD 04/18/2018 Name: [...] and developed the plan. Bebeto Roth MD S TRAINING COORDINATOR documented in this encounter Nursing Notes Quincy Rosas, DODIE - 04/18/2018 8:45 AM CST Reason For Visit: Chief Complaint Patient presents with ??? RECHECK DOS 10/23/17 extrention of fusion, follow up scoliosis Primary MD: Keri Elias MD: self Mailroom Associate? No Date of surgery: 10/23/17 Type of [...] data might be hidden Quincy Rosas ATC S TRAINING COORDINATOR documented in this encounter Plan of Treatment Not on filedocumented as of this encounter Visit Diagnoses Diagnosis Adolescent idiopathic scoliosis of thora [facility] - Primary Scoliosis (and kyphoscoliosis), idiopath ic History of spinal fusion Arthrodesis status documented in this encounter Care Teams Credit Interviewer Relationship Specialty Start Date End Date Keri Elias PCP - General Family Practice 03/12/15 9 MD Ira Glez David Wayne, MD Orthopedics 07/09/[address] [place] [address] Astrid Rios PA-C Physician Glass Block Installer Physician Glass Block Installer - 07/09/14 Surgical documented as of this encounter
--- OUTSIDE RECORDS SUMMARY | 2022-01-23 08:24 | XMS_ITS | Encounter Summary ---
:1980 Author Organization [place] Address [facility] [place] [address] Care Team Providers Name Role Phone Bebeto Roth MD Unavailable Astrid Rios PA-C Unavailable Keri Elias MD Primary Care Provider Unavailable Reason for Visit Diagnostic Imaging XR - Closed Specialty Diagnoses / Procedures Referred By Contact Refer red To Contact Diagnoses Scoliosis Bebeto Roth MD Procedures XR Spine Complete Scoliosis [address] [place], [place] [address] Referral ID Status Reason Start Date Expiration Date Visits Requ ested Visits Authorized [id number] Closed 04/17/2018 04/17/2019 1 1 Encounter Details Date Type Department Care Team Description 04/18/2018 Ancillary Procedure [facility] Chan Roth MD 9 [facility] [address] 1[address] [place] [phone] Social History Tobacco Use Types Packs/Day Years [...] Resu lts for this SCOLIOSIS 2 VIEWS COMMERCIAL ARTIST LETTERING procedure are in the results section. documented in this encounter Results XR Spine Complete Scoliosis 2 Views (04/18/2018 9:23 AM COMMERCIAL ARTIST LETTERING) Anatomical Region Laterality Modality Spine Computed Radiography Specimen (Source) Anatomical Location Collection Method / Collectio n Time Received Time / Laterality Volume Impressions 04/18/2018 3:19 PM COMMERCIAL ARTIST LETTERING Impression: 1. Fusion hardware from T4 through L3 wi thout evidence of hardware complication. 2. Mild convex right curvature of the th oracolumbar/lumbar spine with apex at T12. 3. No substantial global coronal imbalan ce. 4. Normal sagittal vertical axis. MADALYN ZARAGOZA MD Narrative 04/18/2018 3:19 PM COMMERCIAL ARTIST LETTERING Exam: XR SIX FOOT STANDING EXTREMITIES, XR [...] No substantial global coronal imbalance. Sagittal Vertical [place] (A vertical line drawn from the center [...] No substantial global coronal imbalance. Sagittal Vertical [place] (A vertical line drawn from the center [...] on filedocumented in this encounter Care Teams Wool Cleaner Relationship Specialty Start Date End Date Keri Elias PCP - General Family Practice 03/12/15 9 MD Ira Glez David Wayne, MD Orthopedics 07/09/[address] [place] [address] Astrid Rios PA-C Physician Adjunct Faculty Physician Adjunct Faculty - 07/09/14 Surgical documented as of this encounter
--- OUTSIDE RECORDS SUMMARY | 2022-01-23 08:24 | XMS_ITS | Encounter Summary ---
:1980 Author Organization [place] Address [address] [facility] [place] [address] Care Team Providers Name Role Phone Bebeto Roth MD Unavailable Astrid Rios PA-C Unavailable Francisco Metz MD Primary Care Provider [phone] Reason for Visit Reason Onset Date Comments Symptoms 02/18/2019 Encounter Details Date Type Department Care Team Description 02/18/2019 Telephone [facility] Family Medicine Francisco Metz, Symptoms Clinic [address] [place] [address] [address] [place] [address] [phone] Social History Tobacco Use Types Packs/Day Years [...] size of golf balls, hgb is 11.7. [facility] tried contacting their OB provider [...] going home, to be seen at our [facility] emergency department for a second opinion. RN inquired if she has a limousine driver, out of concern for potential dizziness. 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 Alanna Sanders RN MATION APPLICATION ENGINEER Telephone Encounter - Ursula Barnes - 02/18/2019 [...] within 3 hours, unless emergent Primary language: Slovenian Tube Coremaker needed? No Call taken on February 18, 2019 at 2:01 PM by Ursula Barnes MATION APPLICATION ENGINEER documented in this encounter Plan of Treatment Not on filedocumented as of this encounter Visit Diagnoses Not on filedocumented in this encounter Care Teams Merchandising Coordinator Relationship Specialty Start Date End Date Francisco Metz PCP - General Family Practice 11/14/18 04/02/20 MD Stevie Bebeto Roth MD Orthopedics 07/09/[address] [place] [address] Astrid Rios PA-C Physician Nip Wrapper Physician Nip Wrapper - 07/09/14 Surgical documented as of this encounter
--- OUTSIDE RECORDS SUMMARY | 2022-01-23 08:24 | XMS_ITS | Encounter Summary ---
:1980 Author Organization [place] Address [address] [facility] [place] [address] Care Team Providers Name Role Phone Bebeto [...] on filedocumented in this encounter Care Teams Jewelry Store Manager Relationship Specialty Start Date End Date Francisco Metz PCP - General Family Practice 11/14/18 04/02/20 MD Stevie Bebeto Roth MD Orthopedics 07/09/14 [facility] [place] [address] Astrid Rios PA-C Physician Integrity Director Physician Integrity Director - 07/09/14 Surgical documented as of this encounter
--- OUTSIDE RECORDS SUMMARY | 2022-01-23 08:24 | XMS_ITS | Encounter Summary ---
:1980 Author Organization [place] Address [facility] [place] [address] Care Team Providers Name Role Phone Bebeto Roth MD Unavailable Astrid Rios PA-C Unavailable Keri Elias MD Primary Care Provider Unavailable Reason for Visit Diagnostic Imaging XR - Closed Specialty Diagnoses / Procedures Referred By Contact Refer red To Contact Diagnoses Scoliosis Bebeto Roth MD Procedures XR Six Foot Standing Extremities [address] [place], [place] [address] Referral ID Status Reason Start Date Expiration Date Visits Requ ested Visits Authorized [id number] Closed 04/17/2018 04/17/2019 1 1 Encounter Details Date Type Department Care Team Description 04/18/2018 Ancillary Procedure [facility] Chan Roth Xray MD Devan 9 [facility] [address] 1st [place] [address] [phone] Social History Tobacco Use Types Packs/Day Years [...] AM Scoliosis R esults for this EXTREMITIES SUPERVISOR BODY ASSEMBLY procedure are i n the results section. documented in this encounter Results XR Six Foot Standing Extremities (04/18/2018 9:23 AM SUPERVISOR BODY ASSEMBLY) Anatomical Region Laterality Modality Lower Extremity Computed Radiography Specimen (Source) Anatomical Location Collection Method / Collectio n Time Received Time / Laterality Volume Impressions 04/18/2018 3:19 PM SUPERVISOR BODY ASSEMBLY Impression: 1. Fusion hardware from T4 through L3 wi thout evidence of hardware complication. 2. Mild convex right curvature of the th oracolumbar/lumbar spine with apex at T12. 3. No substantial global coronal imbalan ce. 4. Normal sagittal vertical axis. MADALYN ZARAGOZA MD Narrative 04/18/2018 3:19 PM SUPERVISOR BODY ASSEMBLY Exam: XR SIX FOOT STANDING EXTREMITIES, XR [...] No substantial global coronal imbalance. Sagittal Vertical [place] (A vertical line drawn from the center [...] No substantial global coronal imbalance. Sagittal Vertical [place] (A vertical line drawn from the center [...] on filedocumented in this encounter Care Teams Core Composer Feeder Relationship Specialty Start Date End Date Keri Elias PCP - General Family Practice 03/12/15 9 MD Ira Glez David Wayne, MD Orthopedics 07/09/14 [facility] [address] [place] [address] Astrid Rios PA-C Physician Space Scheduler Physician Space Scheduler - 07/09/14 Surgical documented as of this encounter
--- OUTSIDE RECORDS SUMMARY | 2022-01-23 08:24 | XMS_ITS | Encounter Summary ---
:1980 Author Organization [place] Address [address] [facility] [place] [address] Care Team Providers Name Role Phone Bebeto Roth MD Unavailable Astrid Rios PA-C Unavailable Keri Elias MD Primary Care Provider Unavailable Reason for Referral Diagnostic Imaging XR - Closed Specialty Diagnoses / Procedures Referred By Contact Refer red To Contact Diagnoses Bebeto Rene MD Procedures XR Six Foot Standing Extremities [address] [place], [place] [address] Referral ID Status Reason Start Date Expiration Date Visits Requ ested Visits Authorized [id number] Closed 04/17/2018 04/17/2019 1 1 ING MACHINE OPERATOR Diagnostic Imaging XR - Closed Specialty Diagnoses / Procedures Referred By Contact Refer red To Contact Diagnoses Bebeto Rene MD Procedures XR Spine Complete Scoliosis 2 Views [address] [place], [place] [address] Referral ID Status Reason Start Date Expiration Date Visits Requ ested Visits Authorized [id number] Closed 04/17/2018 04/17/2019 1 1 ING MACHINE OPERATOR Encounter Details Date Type Department Care Team Description 04/17/2018 Orders Only [facility] Orthopaedic Bebeto Roth is (Primary Dx) Clinic MD Devan 9 [facility] [address] [place] [address] [phone] Social History Tobacco Use Types Packs/Day Years [...] Resu lts for this SCOLIOSIS 2 VIEWS FELLING MACHINE OPERATOR procedure are in the results section. XR SIX FOOT STANDING Routine 04/18/2018 9:23 AM Scoliosis R esults for this EXTREMITIES FELLING MACHINE OPERATOR procedure are i n the results section. documented in this encounter Results XR Spine Complete Scoliosis 2 Views (04/18/2018 9:23 AM FELLING MACHINE OPERATOR) Anatomical Region Laterality Modality Spine Computed Radiography Specimen (Source) Anatomical Location Collection Method / Collectio n Time Received Time / Laterality Volume Impressions 04/18/2018 3:19 PM FELLING MACHINE OPERATOR Impression: 1. Fusion hardware from T4 through L3 wi thout evidence of hardware complication. 2. Mild convex right curvature of the th oracolumbar/lumbar spine with apex at T12. 3. No substantial global coronal imbalan ce. 4. Normal sagittal vertical axis. MADALYN ZARAGOZA MD Narrative 04/18/2018 3:19 PM FELLING MACHINE OPERATOR Exam: XR SIX FOOT STANDING EXTREMITIES, [...] No substantial global coronal imbalance. Sagittal Vertical [place] (A vertical line drawn from the center [...] No substantial global coronal imbalance. Sagittal Vertical [place] (A vertical line drawn from the center [...] Six Foot Standing Extremities (04/18/2018 9:23 AM FELLING MACHINE OPERATOR) Anatomical Region Laterality Modality Lower Extremity Computed Radiography Specimen (Source) Anatomical Location Collection Method / Collectio n Time Received Time / Laterality Volume Impressions 04/18/2018 3:19 PM FELLING MACHINE OPERATOR Impression: 1. Fusion hardware from T4 through L3 wi thout evidence of hardware complication. 2. Mild convex right curvature of the th oracolumbar/lumbar spine with apex at T12. 3. No substantial global coronal imbalan ce. 4. Normal sagittal vertical axis. MADALYN ZARAGOZA MD Narrative 04/18/2018 3:19 PM FELLING MACHINE OPERATOR Exam: XR SIX FOOT STANDING EXTREMITIES, [...] No substantial global coronal imbalance. Sagittal Vertical [place] (A vertical line drawn from the center [...] No substantial global coronal imbalance. Sagittal Vertical [place] (A vertical line drawn from the center [...] ic documented in this encounter Care Teams Manager Functional Relationship Specialty Start Date End Date Keri Elias PCP - General Family Practice 03/12/15 9 MD Ira Glez David Wayne, MD Orthopedics 07/09/[address] [place] [address] Astrid Rios PA-C Physician Fisher Trot Line Physician Fisher Trot Line - 07/09/14 Surgical documented as of this encounter
--- OUTSIDE RECORDS SUMMARY | 2022-01-23 08:24 | XMS_ITS | Encounter Summary ---
:1980 Author Organization [place] Address [address] [facility] [place] [address] Care Team Providers Name Role Phone Bebeto Roth MD Unavailable Astrid Rios PA-C Unavailable Francisco Metz MD Primary Care Provider [phone] Encounter Details Date Type Department Care Team [...] on filedocumented in this encounter Care Teams Log Turner Relationship Specialty Start Date End Date Francisco Metz PCP - General Family Practice 11/14/18 04/02/20 MD Stevie Bebeto Roth MD Orthopedics 07/09/14 [facility] [place] [address] Astrid Rios PA-C Physician Suspender Cutter Physician Suspender Cutter - 07/09/14 Surgical documented as of this encounter
--- OUTSIDE RECORDS SUMMARY | 2022-01-23 08:24 | XMS_ITS | Encounter Summary ---
:1980 Author Organization [place] Address [address] [facility] [place] [address] Care Team Providers Name Role Phone Bebeto Roth MD Unavailable Astrid Rios PA-C Unavailable Francisco Metz MD Primary Care Provider [phone] Francisco Metz MD Unavailable [phone] Reason for Visit Reason Onset Date Comments Referral 10/03/2019 [facility] Encounter Details Date Type Department Care Team Description 10/03/2019 Telephone [facility] Francisco Metz Referral ( Health Medicine Clinic MD Stevie [facility]) [address] [address] 651 [facility] [phone] [place] [address] Social History Tobacco Use [...] would need to ok authorization, reference # [id number]. This authorization that was entered on 09/19/19 [...] referral/auth online with [facility]. Marli Gonzales Wholesale Parts Salesperson Telephone Encounter - Marli Gonzales - 10/09/2019 9:56 AM CDT 10/07/19 Attempted to reach Marium at [place], Left message on voicemail. 10/09/19 Left message on [facility] voicemail. Marli Gonzales Wholesale Parts Salesperson Telephone Encounter - Lisa Ventura - 10/03/2019 10:44 AM CDT [facility] Family Medicine phone call message - order or referral request from patient: Order or referral being requested: [facility]erral to: [facility] At Location: [place], [place] Additional Details: Marium calling from [facility] to advise that [facility] denied their claim for patient's visit with them on 08/14/19. Marium advised that per [facility], an authorization request was sent to [facility] (by [facility]) authorizing the patient to receive care in [place]. Authorization request # [id number]. Referral only -Specialty see above Location see above OK to leave a message on voice mail? Yes Primary language: Polish President & Ceo [employer] needed? No Call taken on October 03, 2019 at 10:45 AM by Lisa Ventura Order request route to P SMI TRIAGE Referrals Route to P SMI (Green/[place]/Purple) MARRIAGE COUNSELOR MINISTER documented in this encounter Plan of Treatment Not on filedocumented as of this encounter Visit Diagnoses Not on filedocumented in this encounter Care Teams Agile Test Lead Relationship Specialty Start Date End Date Francisco Metz PCP - General Family Practice 11/14/18 04/02/20 MD Stevie Bebeto Roth MD Orthopedics 07/09/14 [address] [place] [address] Astrid Rios PA-C Physician Livestock Yard Supervisor Physician Livestock Yard Supervisor - 07/09/14 Surgical Francisco Metz Assigned PCP 07/04/19 02/01/20 MD Stevie [place] [address] [place] [address] [place] [address] documented as of this encounter
--- OUTSIDE RECORDS SUMMARY | 2022-01-23 08:24 | XMS_ITS | Encounter Summary ---
:1980 Author Organization [facility] Address [address] [place] [address]. [place] [address] Care Team Providers Name Role Phone Bebeto Roth MD Unavailable Astrid Rios PA-C Unavailable Francisco Metz MD Primary Care Provider [phone] Reason for Visit Reason Comments Miscarriage confirmed by [facility] on February 14. Has US results with her. Now having very heavy bleedi ng with golfball sized clots. Encounter Details Date Type Department Care Team Description 02/18/2019 Emergency [facility] Miguel Angel Collins MD [facility] Emergency Department [address] [address] [place] [phone] Social History Tobacco Use Types Packs/Day Years Used Date Smoking Tobacco: Never Smokeless Tobacco: Never Alcohol Use Standard Drinks/Week Comments No 0 (1 standard drink = 0.6 oz pure alcoho l) Sex Assigned at Date Recorded Not on file documented as of this encounter Last Filed Vital Signs Vital Sign Reading Time Taken Comments Blood Pressure 94/56 02/18/2019 7:21 PM SHANKER OUT Pulse 56 02/18/2019 7:21 PM SHANKER OUT Temperature 36.9 ??C (98.4 ??F) 02/18/2019 3:50 PM SHANKER OUT Respiratory Rate 16 02/18/2019 7:21 PM SHANKER OUT Oxygen Saturation 94% 02/18/2019 7:21 PM SHANKER OUT Inhaled Oxygen Concentration - - Weight 73.5 kg (162 lb) 02/18/2019 3:50 PM SHANKER OUT Height - - Body Mass Index 28.7 04/18/2018 8:42 AM SHANKER OUT documented in this encounter Discharge Instructions Discharge InstructionsGrAditi Ellington MD - 02/18/2019 7:06 PM SHANKER OUT Please make an appointment to follow up with recreation leader[facility] (phone: ). Call tomorrow for an appointment. KER OUT AttachmentsThe following attachments cannot be sent through Care Everywhere. Miscarriage, Spontaneous (Completed) (Portuguese)documented in this encounter Medications at Time of Discharge Medication Sig Dispensed Refills Start Date End Date ferrous sulfate (FEROSUL) Take 1 tablet (325 60 tablet 1 325 (65 Fe) MG mg) by mouth daily tabletIndications: Iron (with breakfast) deficiency anemia, unspecified iron deficiency anemia type fluticasone (FLONASE) 50 [place] 1-2 sprays 16 g 3 07/05 MCG/ACT [...] Patient presents with ??? Miscarriage confirmed by [facility] on February 14. Has US results with her. Now having very heavy bleeding with golfball sized clots. HPI Azul Garg is a 38 year old female currently 6w4d (due date 09/13/2019) presenting with 5 days of bleeding. Patient states she started bleeding about 5 days ago and was seen at [facility] on 02/15/2019. Ultrasound was done [...] blood every 1-3 hours. She returned to [facility]- they were unable to reach [place] county commissioner and sent patient here. Patient states she received Toradol around 2pm this afternoon. Patient denies fever/chills, lightheadedness/dizziness/syncope, nausea/vomiting, severe pain. Her blood type is O pos (03/07/2002, [employer]). I have reviewed the Medications, Allergies, Past Medical and Surgical History, and Social History inthe [employer] system. Review of Systems Constitutional: Negative for [...] nursing note reviewed. Exam conducted with a ase certified technician present. Constitutional: General: She is not [...] sac consistent with completed spontaneous . [place] county commissioner reviewed ultrasound, recommended no further intervention. Hemoglobin [...] in detail. She will follow-up with the strip mill operator clinic. RANDY COLLINS MD, MD I have reviewed the nursing notes. I have reviewed the findings, diagnosis, plan and need for follow up with the patient. Discharge Medication List as of 02/18/2019 7:05 PM Final diagnoses: Miscarriage 02/18/2019 [facility], [facility], EMERGENCY DEPARTMENT Aditi Feliciano MD Resident 02/18/19 1933 Randy Collins MD 02/18/19 6996 KER OUT documented in this encounter Plan of Treatment Not on filedocumented as of this encounter Procedures Procedure Name Priority Date/Time Associated Comments Diagnosis US OB < 14 WEEKS STAT 02/18/2019 5:33 PM Resul ts for this SINGLE-TRANSABDOMINAL SHANKER OUT proced ure are in the results section. HCG QUANTITATIVE STAT 02/18/2019 4:22 PM Resul ts for this SHANKER OUT procedure are i n the results section. CBC WITH PLATELETS Routine 02/18/2019 4:22 PM Res ults for this SHANKER OUT procedure are i n the results section. documented in this encounter Results US OB < 14 Weeks Single (02/18/2019 5:33 PM SHANKER OUT) Anatomical Region Laterality Modality Abdomen/Pelvis Ultrasound Specimen (Source) Anatomical Location Collection Method / Collectio n Time Received Time / Laterality Volume Impressions 02/18/2019 8:17 PM SHANKER OUT IMPRESSION: 1. No evidence of infiltrate finding ges tational sac, yolk sac or pole. 2. The endometrial stripe is heterogenou s and mildly thickened measuring 1.2 cm, given the patient's hi story of , cannot completely exclude retained products con ception. JOSE CRUZ MORENO MD Narrative 02/18/2019 8:17 PM SHANKER OUT OBSTETRIC ULTRASOUND LESS THAN 14 WEEKS SINGLE [...] (ABNORMAL) CBC with platelets (02/18/2019 4:22 PM SHANKER OUT) [facility] gist Method Time Signature WBC 11.4 (H) 4.0 - 11.0 02/18/2019 [facility] 10e9/L 5:55 PM SHANKER OUT [facility] RBC Count 4.26 3.8 - 5.2 02/18/2019 [facility] 10e12/L 5:[address] [facility] Hemoglobin 10.3 (L) 11.7 - 02/18/2019 [facility] 15.7 g/dL 5:[address] [facility] Hematocrit 33.2 (L) 35.0 - 02/18/2019 [facility] 47.0 % 5:55 PM SHANKER OUT [facility] MCV 78 78 - 100 02/18/2019 [facility] fl 5:55 PM SHANKER OUT [facility] MCH 24.2 (L) 26.5 - 02/18/2019 [facility] 33.0 pg 5:[address] [facility] MCHC 31.0 (L) 31.5 - 02/18/2019 [facility] 36.5 g/dL 5:[address] [facility] RDW 15.0 10.0 - 02/18/2019 [facility] 15.0 % 5:[address] [facility] Platelet Count 328 150 - 450 02/18/2019 [facility] 10e9/L 5:[address] [facility] Specimen Anatomical Collection Method Collection Time Receive d Time (Source) Location / / Volume Laterality 02/18/2019 4:22 PM 0 5:11 SHANKER OUT PM SHANKER OUT Aditi Feliciano MD LAB - BLOOD ORDERABLES Performing Organization Address City/State/ZIP Code Phon e Number [facility] [address] [place] [address] [facility] (ABNORMAL) HCG quantitative (blood) (02/18/2019 4:22 PM SHANKER OUT) [facility] Method Time Signature HCG Quantitative 8,208 (H) 0 - 5 02/18/2019 [place] [facility] Serum IU/L 5:50 PM SHANKER OUT [facility] Specimen Anatomical Collection Method Collection Time Receive d Time (Source) Location / / Volume Laterality Blood specimen 02/18/2019 4:22 PM 020 5:11 (specimen) SHANKER OUT PM SHANKER OUT Aditi Feliciano MD LAB - BLOOD ORDERABLES Performing Organization Address City/State/ZIP Code Phon e Number [facility] [address] [place] [address] [facility] documented in this encounter Visit Diagnoses Diagnosis Miscarriage Unspecified spontaneous without mention of complication documented in this encounter Administered Medications Inactive Administered Medications - up to 3 most recent administrations Medication Order MAR Action Action Date Dose Rate Site 0.9% sodium chloride BOLUS New Bag 02/18/2019 4:48 PM SHANKER OUT 1,000 mLs 1000 mL/hr Intravenous, 1,000 mL, ONCE, at 1,000 mL/hr, Administer over 1 Hours, On 02/18/19 at 1646, For 1 dose NO Rho (D) immune globulin (RhoGam) need ed - mother Rh POSITIVE CONTINUOUS PRN, Starting on 02/18/19 at 1646, Until 02/18/19 at 2121 documented in this encounter Active and Recently Administered Medications Times are shown in SHANKER OUT. Scheduled Medication Order 02/16/2019 02/17/2019 02/18/2019 0.9% [...] 2121 documented in this encounter Care Teams Top Distribution Executive Relationship Specialty Start Date End Date Francisco Metz PCP - General Family Practice 11/14/18 04/02/20 MD Stevie Bebeto Roth MD Orthopedics 07/09/[address] [place] [id number] Astrid Rios PA-C Physician Chief Nurse Executive Physician Chief Nurse Executive - 07/09/14 Surgical documented as of this encounter
--- OUTSIDE RECORDS SUMMARY | 2022-01-23 08:25 | XMS_ITS | Encounter Summary ---
:1980 Author Organization [place] Address [address] [facility] [place] [place] [address] Care Team Providers Name Role Phone Bebeto Roth MD Unavailable Astrid Rios PA-C Unavailable Keri Elias MD Primary Care Provider Unavailable Reason for Visit Reason Onset Date Comments Refill Request 11/06/2017 Encounter Details Date Type Department Care Team Description 11/06/2017 [facility] Orthopaedic Clinic Bebeto Roth, Refill Request [address] [facility] 4th Floor [address] [place], [place] [phone] [place] [address] (Wo rk) Social History Tobacco [...] 11:39 AM CDT Refilled to [facility] in [place]. Telephone Encounter - Joe Deng - 11/09/2017 11:30 AM CDT [facility] Call Center Phone Message May a detailed message be left on voicemail: yes Reason for Call: Medication Refill Request Has the patient contacted the pharmacy for the refill? Yes Name of medication being requested: Kirsten Provider who prescribed the medication: Bebeto Roth Pharmacy: Please mail to pt Date medication is needed: Not a cheney Action Taken: Message routed to: [facility] ([facility] Orthopedics Telephone Encounter - Katy Toribio RN [...] will be brought down to [facility] pharmacy for patient to cloth picker this afternoon. Telephone Encounter - Yamilka Rader - 11/06/2017 7:17 AM CDT [facility] Phone Message May a detailed message be left on voicemail: yes Reason for Call: Medication Refill Request Has the patient contacted the pharmacy for the refill? Yes Name of medication being requested: methocarbamol (ROBAXIN) 500 MG tablet & oxyCODONE IR (ROXICODONE) 10 MG tablet Provider who prescribed the medication: Dr. Roth Pharmacy: [facility] [place] Please call pt when ready for cloth picker - Will be out by tomorrow Date medication is needed: KEMI Action Taken: Message routed to: [facility] ([facility]): Orthopedics documented in this encounter Plan of Treatment Not on filedocumented as of this encounter Visit Diagnoses Diagnosis S/P spinal fusion Arthrodesis status documented in this encounter Care Teams Irrigation Equipment Mechanic Relationship Specialty Start Date End Date Keri Elias PCP - General Family Practice 03/12/15 9 MD Ira Glez David Wayne, MD Orthopedics 07/09/14 [address] [place] [address] Astrid Rios PA-C Physician Glue Line Operator Physician Glue Line Operator - 07/09/14 Surgical documented as of this encounter
--- OUTSIDE RECORDS SUMMARY | 2022-01-23 08:25 | XMS_ITS | Encounter Summary ---
:1980 Author Organization [facility] Address [address] [place] [address]. [place] [address] Care Team Providers Name Role Phone Bebeto Roth MD Unavailable Astrid Rios PA-C Unavailable Keri Elias MD Primary Care Provider Unavailable Reason for Visit Auth/Cert Specialty Diagnoses / Procedures Referred By Contact Refer red To Contact Surgery Diagnoses Scoliosis Kyphosis Ur Periop Procedures [facility] [address] [place] [phone] Phone: Fax: Referral ID Status Reason Start Date Expiration Date Visits Requ ested Visits Authorized [id number] 1 1 Encounter Details Date Type Department Care Team Description 10/23/2017 Anesthesia Event M [facility] Sarah Parry MD [address] [place] [address] PeriOp Services Bryan Tejeda, SECTION GANG TAIL DOGGER [address] [place] [id number] [place] [phone] Anesthesia Record Procedure Summary Procedure Name [...] Antibody Screen: Neg Test Valid Only At: [facility]. Specimen Expires: 10/02/2017 ?? 09/29/2017 12:11 Color Urine: Yellow Appearance Urine: Clear Glucose Urine: Negative Bilirubin Urine: Negative Ketones Urine: Negative Specific [place] Urine: 1.013 pH Urine: 6.0 Protein Albumin Urine: Negative Urobilinogen mg/dL: 0.0 Nitrite Urine: Negative Blood Urine: Large (A) Leukocyte Esterase Urine: Negative Source: Midstream Urine WBC Urine: 1 RBC Urine: 3 (H) Squamous Epithelial /HPF Urine: 3 (H) Transitional Epi: <1 (A) Mucous Urine: Present (A) ? PAC Discussion and Assessment ?? ASA Classification: 2 Case is suitable for: [place] Anesthetic techniques and relevant risks discussed: GA Invasive monitoring and risk discussed: Yes Types: Possibility and Risk of blood transfusion discussed: Yes NPO instructions given: Additional anesthetic preparation and risks discussed: Needs early admission to pre-op area: Other: ?? PAC Resident/APPLICATIONS PACKAGER Anesthesia Assessment: Jocelin Garg is a 37 [...] Antibody Screen: Neg Test Valid Only At: [facility]. Specimen Expires: 10/02/2017 ?? 09/29/2017 12:11 Color Urine: Yellow Appearance Urine: Clear Glucose Urine: Negative Bilirubin Urine: Negative Ketones Urine: Negative Specific [place] Urine: 1.013 pH Urine: 6.0 Protein Albumin Urine: Negative Urobilinogen mg/dL: 0.0 Nitrite Urine: Negative Blood Urine: Large (A) Leukocyte Esterase Urine: Negative Source: Midstream Urine WBC Urine: 1 RBC Urine: 3 (H) Squamous Epithelial /HPF Urine: 3 (H) Transitional Epi: <1 (A) Mucous Urine: Present (A) ? PAC Discussion and Assessment ?? ASA Classification: 2 Case is suitable for: [place] Anesthetic techniques and relevant risks discussed: GA Invasive monitoring and risk discussed: Yes Types: Possibility and Risk of blood transfusion discussed: Yes NPO instructions given: Additional anesthetic preparation and risks discussed: Needs early admission to pre-op area: Other: ?? PAC Resident/APPLICATIONS PACKAGER Anesthesia Assessment: Jocelin Garg is a 37 [...] Intra-procedure documented in this encounter Care Teams Candy Department Manager Relationship Specialty Start Date End Date Keri Elias PCP - General Family Practice 03/12/15 9 MD Ira Glez David Wayne, MD Orthopedics 07/09/14 [facility] [place] [address] Astrid Rios PA-C Physician Director Digital Catalogue Physician Director Digital Catalogue - 07/09/14 Surgical documented as of this encounter
--- OUTSIDE RECORDS SUMMARY | 2022-01-23 08:25 | XMS_ITS | Encounter Summary ---
:1980 Author Organization [place] Address [address] [facility] [place] [address] Care Team Providers Name Role Phone Bebeto Roth MD Unavailable Astrid Rios PA-C Unavailable Keri Elias MD Primary Care Provider Unavailable Reason for Referral Diagnostic Imaging XR - Closed Specialty Diagnoses / Procedures Referred By Contact Refer red To Contact Diagnoses Scoliosis Kyphosis (acquired) (postural) Bebeto Roth MD Procedures XR Six Foot Standing Extremities [address] [place], [place] [address] Referral ID Status Reason Start Date Expiration Date Visits Requ ested Visits Authorized [id number] Closed 01/10/2018 01/10/2019 1 1 GENERATOR Diagnostic Imaging XR - Closed Specialty Diagnoses / Procedures Referred By Contact Refer red To Contact Diagnoses Scoliosis Kyphosis (acquired) (postural) Bebeto Roth MD Procedures XR Spine Complete Scoliosis [address] [place], [place] [address] Referral ID Status Reason Start Date Expiration Date Visits Requ ested Visits Authorized [id number] Closed 01/10/2018 01/10/2019 1 1 GENERATOR Encounter Details Date Type Department Care Team Description 01/10/2018 Orders Only [facility] Orthopaedic Bebeto Roth is (Primary Dx); Clinic MD Devan Kyphosis (acquired) (postural) [address] [place] [id number] [place] [address] [phone] Social History Tobacco Use Types Packs/Day Years [...] Complete Scoliosis 2 Views (01/17/2018 8:41 AM LEAD GENERATOR) Anatomical Region Laterality Modality Spine Computed Radiography Specimen (Source) Anatomical Location Collection Method / Collectio n Time Received Time / Laterality Volume Impressions 01/17/2018 2:07 PM LEAD GENERATOR Impression: 1. Fusion instrumentation from T4 throug h L3 without evidence of hardware complication. 2. Mild convex right curvature of the th oracolumbar/lumbar spine with apex at T12. 3. No substantial global coronal imbalan ce. 4. Normal sagittal vertical axis. MADALYN ZARAGOZA MD Narrative 01/17/2018 2:07 PM LEAD GENERATOR Exam: XR SPINE COMPLETE SCOLIOSIS 2 VW, [...] No substantial global coronal imbalance. Sagittal Vertical [place] (A vertical line drawn from the center [...] No substantial global coronal imbalance. Sagittal Vertical [place] (A vertical line drawn from the center [...] Six Foot Standing Extremities (01/17/2018 8:40 AM LEAD GENERATOR) Anatomical Region Laterality Modality Lower Extremity Computed Radiography Specimen (Source) Anatomical Location Collection Method / Collectio n Time Received Time / Laterality Volume Impressions 01/17/2018 2:07 PM LEAD GENERATOR Impression: 1. Fusion instrumentation from T4 throug h L3 without evidence of hardware complication. 2. Mild convex right curvature of the th oracolumbar/lumbar spine with apex at T12. 3. No substantial global coronal imbalan ce. 4. Normal sagittal vertical axis. MADALYN ZARAGOZA MD Narrative 01/17/2018 2:07 PM LEAD GENERATOR Exam: XR SPINE COMPLETE SCOLIOSIS 2 VW, [...] No substantial global coronal imbalance. Sagittal Vertical [place] (A vertical line drawn from the center [...] No substantial global coronal imbalance. Sagittal Vertical [place] (A vertical line drawn from the center [...] (postural) documented in this encounter Care Teams Net Developer Programmer Relationship Specialty Start Date End Date Keri Elias PCP - General Family Practice 03/12/15 9 MD Ira Glez, Bebeto Hartman MD Orthopedics 07/09/14 [facility] [address] [address] Astrid Rios PA-C Physician Grants Assistant Physician Grants Assistant - 07/09/14 Surgical documented as of this encounter
--- OUTSIDE RECORDS SUMMARY | 2022-01-23 08:25 | XMS_ITS | Encounter Summary ---
:1980 Author Organization [place] Address [address] [facility] [place] [address] Care Team Providers Name Role Phone Bebeto Roth MD Unavailable Astrid Rios PA-C Unavailable Keri Elias MD Primary Care Provider Unavailable Reason for Visit Reason Onset Date Comments Forms 10/05/2017 FMLA paperwork f/u Encounter Details Date Type Department Care Team Description 10/05/2017 Telephone [facility] Orthopaedic Bebeto Roth Forms ( FMLA paperwork Clinic MD Devan f/u) [address] [place] [id number] Social History Tobacco Use Types Packs/Day Years Used Date Smoking Tobacco: Never Smokeless Tobacco: Never Alcohol Use Standard Drinks/Week Comments No 0 (1 standard drink = 0.6 oz pure alcoho l) Sex Assigned at Date Recorded Not on file documented as of this encounter Miscellaneous Notes Telephone Encounter - Miguelina Ward LPN - 10/05/2017 9:47 AM CDT Advised patient to call Dr. Roth's engineering secretary, Gavi, regarding FMLA paperwork. Number provided. [...] on filedocumented in this encounter Care Teams Camp Director Relationship Specialty Start Date End Date Keri Elias PCP - General Family Practice 03/12/15 9 MD Ira Glez David Wayne, MD Orthopedics 07/09/[address] [place] [address] Astrid Rios PA-C Physician Technology Sales Specialist Physician Technology Sales Specialist - 07/09/14 Surgical documented as of this encounter
--- OUTSIDE RECORDS SUMMARY | 2022-01-23 08:25 | XMS_ITS | Encounter Summary ---
:1980 Author Organization [place] Address [facility] [place] [address] Care Team Providers Name Role Phone Myles De Oliveira MD Unavailable Astrid Rios PA-C Unavailable Keri Elias MD Primary Care Provider Unavailable Reason for Visit Auth/Cert Specialty Diagnoses / Procedures Referred By Contact Refer red To Contact Surgery Diagnoses Scoliosis Kyphosis Ur Periop Procedures PROCEDURE PLACEHOLDER ORTHO [address] [place] [address] Phone: Fax: Referral ID Status Reason Start Date Expiration Date Visits Requ ested Visits Authorized [id number] 1 1 Encounter Details Date Type Department Care Team Description 10/23/2017 - Hospital Encounter [facility] Myles Romero S/P spinal fusion 10/27/2017 [facility] [address] MD Devan (Primary Dx) [address] [place] [address] [place] [address] [address] [place], [place] [id number] Social History Tobacco Use Types Packs/Day Years [...] discharge. All PT/OT [facility] have [facility]. Pain is now controlled [...] [facility] Orthopaedic Surgery appointments are at the [facility] [place] ([address] [place] [address]). Call [phone] to schedule a follow-up appointment at this [...] CHANGED Details fluticasone (FLONASE) 50 MCG/ACT spray Docena 1-2 sprays into both nostrils daily, Disp-16 g, R-3, E-Prescribe pseudoePHEDrine (SUDAFED) 120 MG 12 hr tablet Take 120 mg by mouth every morning, Historical STOP taking these medications ibuprofen (ADVIL/MOTRIN) 600 MG tablet Comments: Reason for Stopping: Discharge Procedure Orders Reason for your hospital stay Order Comments: You were hospitalized after surgery for pain control and therapy. Adult [facility] Follow-up and recommended labs and tests Order Comments: You have an appointment with Dr. De Oliveira on 12/13/17. [facility] [place] ([address] [place] [address]). Call [phone] to schedule a follow-up appointment at this [...] from 7 am to 7 pm [facility] [place] ([address] [place] [address]). -Pain control: Take medication as prescribed, but [...] help keep you hydrated. -CALL OUR CLINIC ([phone] during regular office hours, or [phone] for the on-call residentMD for questions - [...] Start Date End Date fluticasone (FLONASE) 50 Docena 1-2 sprays 16 g 3 07/05 MCG/ACT [...] prior to contacting the Orthopaedic Surgery resident personal care aide. Thank you! T Sunni Hernandez MD - 10/26/2017 1:21 PM CDT Urinary retention No BM yet Ambulating with PT Last night nursing notes reviewed No cp No sob No fever No chills No vomiting No loss of consciousness Vital signs: Temp: 99.1 ??F (37.3 ??C) Temp src: Oral BP: 97/50 Pulse: 114 Heart Rate: 103 Resp: 16 SpO2: 98 % [id number]: None (Room air) Oxygen Delivery: 6 LPM [...] Rivera RN - 10/26/2017 10:58 AM CDT Leach Cell Operator Progress Note Admission Date/Time: 10/23/2017 Attending MD: [...] Anticipated Discharge Plan: home Angelica PADILLA RN [facility] RN Leach Cell Operator 10A E-mail: [email or web address] Pager: [phone] To contact weekend RNCC, dial * [phone] and enter pager number [phone] at prompt. This pager can not be [...] prior to contacting the Orthopaedic Surgery resident personal care aide. Thank you! Sunni Hernandez MD - 10/25/2017 [...] Mobility Skill: Sit to Supine Level of [place]: Sit/Supine stand-by assist Bed Mobility Skill: Supine to Sit Level of [place]: Supine/Sit stand-by assist Transfer Skill: Bed to Chair/Chair to Bed Level of [place]: Bed to Chair stand-by assist Assistive Device - Transfer Skill Bed to Chair Chair to Bed Rehab Eval standard walker Transfer Skill: Sit to Stand Level of [place]: Sit/Stand stand-by assist Assistive Device for Transfer: Sit/Stand standard walker Transfer Skill: Toilet Transfer Level of [place]: Toilet stand-by assist Upper Body Dressing Level of [place]: Dress Upper Body independent Lower Body Dressing Level of [place]: Dress Lower Body stand-by assist Toileting Level of [place]: Toilet stand-by assist Grooming Level of [place]: Grooming independent Eating/Self Feeding Level of [place]: Eating independent Activities of Daily Living Analysis Impairments Contributing to Impaired Activities of Daily Living pain;post surgical precautions;ROM decreased Clinical Impression Criteria for Skilled Therapeutic Interventions Met evaluation only Risks and Benefits of Treatment have been explained. Yes Patient, Family & other staff in agreement with plan of care Yes [facility] AM-PAC TM 6 Clicks ?? 2016, Trustees of [facility], under license to [employer]. All rights reserved. 6 Clicks Short Forms Daily Activity Inpatient Short Form [facility] AM-PAC??? 6 Clicks Daily Activity Inpatient [...] prior to contacting the Orthopaedic Surgery resident personal care aide. Thank you! Sunni Otoole MD - 10/24/2017 [...] Pericolace . Add miralax Discuss with ortho THEATER PROJECTIONIST and care team rounds Tala Roche Pt, PT - 10/24/2017 10:19 AM CDT 10/24/17 1004 Quick Adds Type of Visit Initial PT Evaluation Interceptor Operator Interceptor Operator Present no Language East [place]orese Living Environment Lives With child(gabino), dependent;significant other [...] in agreement with plan of care Yes [facility] AM-PAC TM 6 Clicks ?? 2016, Trustees of [facility], under license to [employer]. All rights reserved. 6 Clicks Short Forms Basic Mobility Inpatient Short Form [facility] AM-PAC??? 6 Clicks V.2 Basic Mobility [...] lifting >10 lbs x 6 weeks. No Francei lift for transfers. Weight bearing status: WBAT. [...] prior to contacting the Orthopaedic Surgery resident personal care aide. Thank you! documented in this encounter Consult Notes Michael Hilario MD - 10/23/2017 3:54 PM CDTAssociated Order(s): INTERNAL MEDICINE ADULT IP CONSULT FOR [facility] INTERNAL MEDICINE CONSULTATION REQUESTING PHYSICIAN: Myles De Oliveira MD REASON FOR CONSULTATION: For recommendations for medical comorbidities. Assessment Jocelin Garg is a 37 year old female admitted on 10/23/2017 for spinal Sx 1) Extension Of Fusion Thoracic 4-Thoracic 10, Rivera Khan Osteotomies Thoracic 6-10 post op D# 0 Hemodynamics: stable - continue on IV fluids, until adequate PO. Analgesia: adequate , on MOLDED PARTS INSPECTOR Antiemetics: as per protocol. If does not [...] with any questions. Michael Hilario MD (Pager- [phone]) Internal Medicine/ Hospitalist CHIEF COMPLAINT: 37 year [...] to Encounter: fluticasone (FLONASE) 50 MCG/ACT spray Docena 1-2 sprays into both nostrils daily (Patient taking differently: Docena 1-2 sprays into both nostrils as needed [...] a 37 year old female who speaks East Timorese. Procedure Procedure(s): Extension Of Fusion Thoracic 4-Thoracic [...] mg (total dose) last given at 1245 MOLDED PARTS INSPECTOR / epidural Yes. MOLDED PARTS INSPECTOR - hydromorphone (Dilaudid) Capnography Yes Telemetry ECG Rhythm: Normal sinus rhythm Inpatient Blueprint Duplicator Ordered? No Labs Glucose Lab Results Component [...] 10/23/17 Right Lower forearm (Active) Site Assessment [facility] 10/23/2017 12:07 PM Line Status Infusing 10/23/2017 12:07 PM Phlebitis Scale 0-->no symptoms 10/23/2017 12:07 PM Infiltration Scale 0 10/23/2017 12:07 PM Number of days:0 Blood Products Not applicable EBL 310 mL Intake/Output Date 10/23/17 0700 - 10/24/17 0659 Shift 3149-1429 1397-5147 7417-4978 24 Hour Total I N T A K E I.V. 1450 1450 Shift Total (mL/kg) 1450 (21.05) 1450 (21.05) O U T P U T Urine 100 100 Blood 310 310 Shift Total (mL/kg) 410 (5.95) 410 (5.95) Weight (kg) 68.9 68.9 68.9 68.9 Drains / Florez Closed/Suction Drain Back Accordion 10 Korean (Active) Site Description [facility] 10/23/2017 12:07 PM Dressing Status Normal: Clean, Dry & Intact 10/23/2017 12:07 PM Drainage Appearance Normal 10/23/2017 12:07 PM Number of days:0 Urethral Catheter Latex 16 fr (Active) Tube Description [facility] 10/23/2017 12:07 PM Collection Container Standard [...] needing completion None René Esposito, RN [facility] [id number] documented in this encounter Miscellaneous Notes Plan [...] Overview Goal: Plan of Care/Patient Progress Review Senior Analyst Market Intelligence PT Patient plan for discharge: Home Current [...] Overview Goal: Plan of Care/Patient Progress Review Senior Analyst Market Intelligence PT Patient plan for discharge: Home with [...] Additional Info: Pt very anxious throughout shift, law writer listened to pt's concerns and addressed [...] had oxycodone dose increased to 10-15mg. Dilaudid MOLDED PARTS INSPECTOR discontinued this am.Offered ice packs but pt [...] Overview Goal: Plan of Care/Patient Progress Review Senior Analyst Market Intelligence PT Patient plan for discharge: Home with [...] Care/Patient Progress Review A/O x 4. Increased MOLDED PARTS INSPECTOR from 0.2 to 0.3 due to inadequate [...] 1 Skin: Intact Pain: Moderate. Manageable w/ MOLDED PARTS INSPECTOR pump. Neuro/CMS: Intact, no numbness or tingling reported Dressing(s): Posterior back CDI Diet: Clear liquids, tolerating well. Equipment: CAPNO MOLDED PARTS INSPECTOR pump IV's/Drains: PIV R hand infusing NS 100mL/hr and MOLDED PARTS INSPECTOR pump Hemovac - 0ccs Florez - patent Plan: Continue to monitor Additional Info: Discontinue MOLDED PARTS INSPECTOR pump POD #1 Discontinue florez POD #1 [...] of surgical incisions and hemovac replacement Pain: MOLDED PARTS INSPECTOR dilaudid on and verified. Pt has discomfort in lower back. And bladder Neuro/CMS: Intact denies numbness and tingling. Prior to surgery pt had intermittently tingling in BL feet. Dressing(s): CDI Aquacel posterior from neck down to Buttocks. hemovac in place CDI. Diet: C.liq. Nausea Zofran given LDA: PIV left hand running LR and Dilaudid MOLDED PARTS INSPECTOR. R hand piv SL. Hemovac in place and patent. Aquacel. Florez catheter. Equipment: IV pole, PCDs, MOLDED PARTS INSPECTOR pump. CAPNO Plan: TBT Additional Info: Pt [...] Myles De Oliveira MD N/A None available Contact Center Rep(s): Huong Stock PA-C Anesthesia: General Estimated blood [...] to PACU Plan: Pain: Scheduled Tylenol, Dilaudid MOLDED PARTS INSPECTOR, oxycodone PRN, Valium PRN Activity: Weight bearing [...] in 5-7 days. Huong Stock PA-C Pager: [phone] If no answer or after 4pm, please page the personal care aide ortho resident. Op Note - Myles De [...] surgery SURGEON: Myles De Oliveira Jr., MD RECREATION PROGRAM COORDINATOR: Huong Stock PA-C. No qualified resident [...] then turned in position prone on a Footnotes 4-clinical appeals rn frame. She was prepared and draped in [...] the O- arm and transferred to the [employer] image-guided workstation. This was now used to place pedicle screws in a navigated fashion. All the screws were from the [employer] Solera System. These were titanium screws with [...] MD MT: CC Name: JOCELIN PINEDO Account: [id number] : 1980 Procedure Date: 10/23/2017 Document: [id number] cc: Copy for Patient Keri Beaulieu MD [...] spine. Positive global coronal imbalance. Sagittal Vertical Mentcle (A vertical line drawn from the center [...] spine. Positive global coronal imbalance. Sagittal Vertical Mentcle (A vertical line drawn from the center [...] Value Ref Test Analysis Performed At [facility] Range Method Time Signature Color Urine Light Yellow 10/26/2017 [facility] 3:08 PM T [facility] Appearance Urine Clear 10/26/2017 [facility] F 3:08 PM T [facility] Glucose Urine Negative NEG^Nega 10/26/2017 [facility] tive 3:08 PM T [place] [facility] mg/dL [facility] Bilirubin Urine Negative NEG^Nega 10/26/2017 [facility] tive 3:08 PM T [facility] Ketones Urine 10 (A) NEG^Nega 10/26/2017 [facility] tive 3:08 PM T [facility] mg/dL [facility] Specific [place] 1.005 1.003 - 10/26/2017 [facility] Urine 1.035 3:08 PM [facility] Blood Urine Moderate (A) NEG^Nega 10/26/2017 [facility] tive 3:08 PM T [facility] pH Urine 6.5 5.0 - 10/26/2017 [facility] 7.0 pH 3:08 PM [facility] Protein Albumin Negative NEG^Nega 10/26/2017 [facility] Urine tive 3:[address] [facility] mg/dL [facility] Urobilinogen Normal 0.0 - 10/26/2017 [facility] mg/dL 2.0 3:[address] [facility] mg/dL [facility] Nitrite Urine Negative NEG^Nega 10/26/2017 [facility] tive 3:08 PM T [facility] Leukocyte Negative NEG^Nega 10/26/2017 [facility] Esterase Urine tive 3:08 PM T [facility] Source Unspecified 10/26/2017 [facility] Urine 2:54 PM [facility] WBC Urine 1 0 - 5 10/26/2017 [facility] /HPF 3:08 PM [facility] RBC Urine 1 0 - 2 10/26/2017 [facility] /HPF 3:08 PM [facility] Squamous <1 0 - 1 10/26/2017 [facility] Epithelial /HPF /HPF 3:08 PM [facility] Specimen (Source) Anatomical Collection Method Collection Time Re ceived Time Location / / Volume Laterality Unspecified Urine URINE SPECIMEN 10/26/2017 2:40 10/26 2:54 OBTAINED BY CLEAN PM CDT PM CDT CATCH PROCEDURE / Unknown Sunni Hernandez MD LAB - URINE ORDERABLES Performing Organization Address City/[facility]/ZIP Code Phon e Number [address] [address] [facility] (ABNORMAL) CBC with platelets (10/26/2017 8:00 AM CDT) [facility] gist Method Time Signature WBC 6.1 4.0 - 11.0 10/26/2017 [facility] 10e9/L 8:24 AM CDT [facility] RBC Count 3.88 3.8 - 5.2 10/26/2017 [facility] 10e12/L 8:24 AM CDT [facility] Hemoglobin 9.9 (L) 11.7 - 10/26/2017 [facility] 15.7 g/dL 8:24 AM CDT [facility] Hematocrit 30.5 (L) 35.0 - 10/26/2017 [facility] 47.0 % 8:24 AM CDT [facility] MCV 79 78 - 100 10/26/2017 [facility] fl 8:24 AM CDT [facility] MCH 25.5 (L) 26.5 - 10/26/2017 [facility] 33.0 pg 8:24 AM CDT [facility] MCHC 32.5 31.5 - 10/26/2017 [facility] 36.5 g/dL 8:24 AM CDT [facility] RDW 13.3 10.0 - 10/26/2017 [facility] 15.0 % 8:24 AM CDT [facility] Platelet Count 244 150 - 450 10/26/2017 [facility] 10e9/L 8:24 AM CDT [facility] Specimen Anatomical Collection Method Collection Time Receive d Time (Source) Location / / Volume Laterality Blood specimen 10/26/2017 8:00 AM 018 8:01 (specimen) CDT AM CDT Huong Stock PA-C LAB - BLOOD ORDERABLES Performing Organization Address City/State/ZIP Code Phon e Number [address] [place] [address] [facility] (ABNORMAL) Glucose by meter (10/25/2017 8:34 AM CDT) P athologist Signature Glucose 114 (H) 70 - 99 10/25/2017 POINT OF CARE mg/dL 8:46 AM CDT TEST, GLUCOSE Specimen Anatomical Collection Method Collection Time Receive d Time (Source) Location / / Volume Laterality 10/25/2017 8:34 AM 8 8:46 CDT AM CDT Myles De Oliveira MD LAB - [facility] POCT Performing Organization Address City/State/ZIP Code Phon e Number [facility] POINT OF CARE TEST, GLUCOSE POINT OF CARE TEST, GLUCOSE (ABNORMAL) CBC with platelets (10/25/2017 6:26 AM CDT) Patholo gist Method Time Signature WBC 9.9 4.0 - 11.0 10/25/2017 [facility] 10e9/L 6:34 AM CDT [facility] RBC Count 4.03 3.8 - 5.2 10/25/2017 [facility] 10e12/L 6:34 AM CDT [facility] Hemoglobin 10.2 (L) 11.7 - 10/25/2017 [facility] 15.7 g/dL 6:34 AM CDT [facility] Hematocrit 32.0 (L) 35.0 - 10/25/2017 [facility] 47.0 % 6:34 AM CDT [facility] MCV 79 78 - 100 10/25/2017 [facility] fl 6:34 AM CDT [facility] MCH 25.3 (L) 26.5 - 10/25/2017 [facility] 33.0 pg 6:34 AM CDT [facility] MCHC 31.9 31.5 - 10/25/2017 [facility] 36.5 g/dL 6:34 AM CDT [facility] RDW 13.5 10.0 - 10/25/2017 [facility] 15.0 % 6:34 AM CDT [facility] Platelet Count 248 150 - 450 10/25/2017 [facility] 10e9/L 6:34 AM CDT [facility] Specimen Anatomical Collection Method Collection Time Receive d Time (Source) Location / / Volume Laterality Blood specimen 10/25/2017 6:26 AM 018 6:28 (specimen) CDT AM CDT Huong Stock PA-C LAB - BLOOD ORDERABLES Performing Organization Address City/[facility]/ZIP Code Phon e Number [address] [address] [facility] (ABNORMAL) CBC with platelets (10/24/2017 7:05 AM CDT) [facility] gist Method Time Signature WBC 8.8 4.0 - 11.0 10/24/2017 [facility] 10e9/L 7:17 AM CDT [facility] RBC Count 4.04 3.8 - 5.2 10/24/2017 [facility] 10e12/L 7:17 AM CDT [facility] Hemoglobin 10.2 (L) 11.7 - 10/24/2017 [facility] 15.7 g/dL 7:17 AM CDT [facility] Hematocrit 32.2 (L) 35.0 - 10/24/2017 [facility] 47.0 % 7:17 AM CDT [facility] MCV 80 78 - 100 10/24/2017 [facility] fl 7:17 AM CDT [facility] MCH 25.2 (L) 26.5 - 10/24/2017 [facility] 33.0 pg 7:17 AM CDT [facility] MCHC 31.7 31.5 - 10/24/2017 [facility] 36.5 g/dL 7:17 AM CDT [facility] RDW 13.3 10.0 - 10/24/2017 [facility] 15.0 % 7:17 AM CDT [facility] Platelet Count 235 150 - 450 10/24/2017 [facility] 10e9/L 7:17 AM CDT [facility] Specimen Anatomical Collection Method Collection Time Receive d Time (Source) Location / / Volume Laterality Blood specimen 10/24/2017 7:05 AM 018 7:06 (specimen) CDT AM CDT Huong Stock PA-C LAB - BLOOD ORDERABLES Performing Organization Address City/State/ZIP Code Phon e Number [address] [address] [facility] (ABNORMAL) Basic metabolic panel (10/24/2017 7:05 AM CDT) Analysis Performed At Patho logist Time Signature Sodium 144 133 - 144 10/24/2017 [facility] mmol/L 7:33 AM T [facility] Potassium 3.6 3.4 - 5.3 10/24/2017 [facility] mmol/L 7:33 AM CDT [facility] Chloride 110 (H) 94 - 109 10/24/2017 [facility] mmol/L 7:33 AM T [facility] Carbon Dioxide 27 20 - 32 10/24/2017 [facility] mmol/L 7:33 AM CDT [facility] Anion Gap 7 3 - 14 10/24/2017 [facility] mmol/L 7:33 AM T [facility] Glucose 99 70 - 99 10/24/2017 [facility] mg/dL 7:33 AM T [facility] Urea Nitrogen 6 (L) 7 - 30 10/24/2017 [facility] mg/dL 7:33 AM T [facility] Creatinine 0.74 0.52 - 10/24/2017 [facility] 1.04 mg/dL 7:33 AM T [facility] GFR Estimate 89 >60 10/24/2017 [facility] mL/min/1.7 7:33 AM T [address] Comment: Non GFR Calc GFR Estimate If >90 >60 mL/min/1.7m2 10/24/2017 7:33 A [facility] Black [facility] Comment: GFR Calc Calcium 7.6 (L) 8.5 - 10.1 mg/dL 10/24/2017 7:[address] [facility] Specimen Anatomical Collection Method Collection Time Receive d Time (Source) Location / / Volume Laterality Blood specimen 10/24/2017 7:05 AM 018 7:06 (specimen) CDT AM CDT Huong Stock PA-C LAB - BLOOD ORDERABLES Performing Organization Address City/State/ZIP Code Phon e Number [facility] [address] [place] [address] [facility] (ABNORMAL) Glucose by meter (10/24/2017 2:17 AM CDT) P athologist Signature Glucose 110 (H) 70 - 99 10/24/2017 POINT OF CARE mg/dL 2:31 AM CDT TEST, GLUCOSE Specimen Anatomical Collection Method Collection Time Receive d Time (Source) Location / / Volume Laterality 10/24/2017 2:17 AM 8 2:31 CDT AM CDT Myles HILLIARD POCT Performing Organization Address [facility]/ZIP Code Phon e Number [facility] POINT [...] be read by a radiologist or a [place] non-radiologis t provider. Myles De Oliveira MD IMG DIAGNOSTIC IMAGING ORDER TAYLOR Performing Organization Address [facility] Code Phon e Number [facility] Glucose by meter (10/23/2017 5:57 AM CDT) P athologist Signature Glucose 94 70 - 99 10/23/2017 POINT OF CARE mg/dL 6:09 AM CDT TEST, GLUCOSE Comment: Dr/RN Notified Specimen Anatomical Collection Method Collection Time Receive d Time (Source) Location / / Volume Laterality 10/23/2017 5:57 AM 8 6:09 CDT AM CDT Myles HILLIARD POCT Performing Organization Address City/[facility] Phon e Number [facility] POINT OF CARE TEST, GLUCOSE POINT OF CARE TEST, GLUCOSE HCG qualitative urine (10/23/2017 5:50 AM CDT) Analysis Performed At Patho logist Time Signature HCG Qual Urine Negative NEG^Negati 10/23/2017 [facility] 6:22 AM CDT [facility] Comment: This test is for screening purposes. ??R esults should be interpreted along with the clinical picture. ??Confirmation te sting is available if warranted by ordering [id number], HCG Quantitative Pregna ncy. Specimen Anatomical Collection Method Collection Time Receive d Time (Source) Location / / Volume Laterality Urine specimen URINE SPECIMEN / 10/23/2017 5:50 AM 11/2017 6:06 (specimen) Unknown CDT AM CDT Sarah Parry MD LAB - URINE ORDERABLES Performing Organization Address City/State/ZIP Code Phon e Number [facility] [address] [place] [address] [facility] EMG - HIM SCAN (10/23/2017 12:00 AM [...] mg, Rectal, DAILY PRN, constipation, Starting on Shean 10/26/17 at 0713 calcium carbonate (TUMS) chewable [...] used when administering multiple Central Nervous System (PRESS SHOP SUPERVISOR) depressing meds within a short time frame., Post-procedure Given 10/24/2017 6:06 AM CDT 25 mg diphenhydrAMINE (BENADRYL) injection 25 mg 25 mg, Intravenous, EVERY 6 HOURS PRN, i tching, Only give if patient unable to take PO., Starting on Mon10/23/17 at 1417, Caution to be us ed when administering multiple Central Nervous System (PRESS SHOP SUPERVISOR) de pressing meds within a short [...] medication dose, if any., Pre-procedure HYDROmorphone (DILAUDID) MOLDED PARTS INSPECTOR 1 mg/mL OPIOID Shift Total 10/14 10:35 PM CDT NAIVE Nurse Loading Dose: 0.2 mg, MOLDED PARTS INSPECTOR Dose: 0.2 mg, Lockout Interval: 10 Minutes, Continuous Rate: 0 mg/hr, One Hour Dose Limit: 1.8 mg, Starting on Mon10/23/17 at 1200, Start with the provider specified dose. MOLDED PARTS INSPECTOR dose range is 0.2 mg - 0.3 mg. May increase dose by 0.1 mg for pain control or improvement in physical function. Hold the dose for analgesic side effects. Notify the provider to assess for uncontrolled pain or analgesic side effects.Do NOT give any additional opioids while on MOLDED PARTS INSPECTOR. When transitioning from MOLDED PARTS INSPECTOR to oral opioid MAY give first oral dose 30 minutes PRIOR to discontinuation of MOLDED PARTS INSPECTOR., Intravenous, Post-procedure Rate/Dose Verify 10/23/2017 2:45 PM CDT New Syringe/Cartridge 10/23/2017 12:41 PM CDT HYDROmorphone (DILAUDID) MOLDED PARTS INSPECTOR 1 New Syringe/Cartridge 10/24/2017 9:54 AM CDT mg/mL OPIOID NAIVE Nurse Loading Dose: 0.2 mg, MOLDED PARTS INSPECTOR Dose: 0.3 mg, Lockout Interval: 10 Minutes, Continuous Rate: 0 mg/hr, One Hour Dose Limit: 1.8 mg, Starting on Mon10/24/17 at 0130, Start with the provider specified dose. MOLDED PARTS INSPECTOR dose range is 0.2 mg - 0.3 mg. May increase dose by 0.1 mg for pain control or improvement in physical function. Hold the dose for analgesic side effects. Notify the provider to assess for uncontrolled pain or analgesic side effects.Do NOT give any additional opioids while on MOLDED PARTS INSPECTOR. When transitioning from MOLDED PARTS INSPECTOR to oral opioid MAY give first oral dose 30 minutes PRIOR to discontinuation of MOLDED PARTS INSPECTOR., Intravenous, Post-procedure Shift Total 10/24/2017 6:01 AM [...] or analgesic side effects. Hold while on MOLDED PARTS INSPECTOR or with regular IV opioid dosing. Maximum [...] or analgesic side effects. Hold while on MOLDED PARTS INSPECTOR or with regular IV opioid dosing. Maximum [...] 10/27/2017 acetaminophen (TYLENOL) tablet 975 mg () 5400 ( Given - Provider: Rhonda Sheppard RN)6493 (Given - Provider: Patricia Gonsalez RN)6492 (Given - Provider: Emma Morales RN) 0707 [...] 9 (Given - Provider: Patricia Gonsalez RN)2154 (z Missed (do not use) - Provider: Emma Morales RN - Reason: Patient/family refused) 0852 (Given - Provider: Huong Adams RN) 17 g, Oral, 2 TIMES DAILY, First dose on Mon10/24/17 at 2000, 1 Packet = 17 grams. Mixed prescribed dose in 8 ounces of water. Follow with 8 oz. of water. polyethylene glycol (MIRALAX/GLYCOLAX) Packet 17 g 1450 (Given - Provider: Huong Adams RN)2130 (z Missed (do not use) - Provider: Emma Morales RN - Reason: [...] per tablet 2 tablet(Linked Group 1) 2129 (z Missed (do not use) - Provider: Emma Morales RN - Reason: Contraindicated) 0908 (Given - Provider: Steffanie meyers RN) 2 tablet, Oral, 2 TIMES DAILY, [...] (PF) 0.9% PF flush 3 mL 0009 (z Missed (do not use) - Provider: Rhonda Sheppard RN - Reason: Med discontinued by Provider - Comment: senior electrical design engineer d/c'd)1148 (Given - Provider: Patricia Gonsalez, RN)2157 (Given - Provider: Emma Morales RN) 0709 (Given - Provider: Rhonda Sheppard, R N)1221 (Given - Provider: Huong Adams RN)2130 (z Missed (do not use) - Provider: Emma Morales RN - Reason: Patient/family refused) 0701 (z Missed (do not use) - Provider: Rhonda Sheppard RN - Reason: [...] mg 1 219 (Given - Provider: Huong Adams RN) 10 mg, Rectal, DAILY PRN, constipation, Starting [place]a 10/26/17 at 0713 calcium carbonate (TUMS) chewable tablet 1,000 mg 0133 (Given - Provider: Mercy Avitia RN) 1,000 mg, Oral, 4 TIMES DAILY PRN, heart burn, Starting 10/23/17 at 1417, Post-procedure diphenhydrAMINE (BENADRYL) capsule 25 mg(Linked Group 2) 326 (Given - Provider: Rhonda Sheppard RN) 25 mg, Oral, EVERY 6 HOURS PRN, itching, Starting 10/23/17 at 1417, Caution to be used when administering multiple Central Nervous System (PRESS SHOP SUPERVISOR) depressing meds within a short time frame., Post-procedure diphenhydrAMINE (BENADRYL) injection 25 mg(Linked Grou p 2) 326 (See Alternative - Provider: Rhonda Sheppard RN) 25 mg, Intravenous, EVERY 6 HOURS PRN, i tching, Only give if patient unable to take PO., Starting 10/23/17 at 1417, Caution to be used when administering multiple Central Nervous System (PRESS SHOP SUPERVISOR) depress ing meds within a short time frame. For ordered doses up to 50 mg, give IV Push undiluted. Give each 25mg over a minimum of 1 minute. Extend in non-emergency, Post-procedure HYDROmorphone (PF) (DILAUDID) injection 0.3-0.5 mg 033 1 (Given - Provider: Rhonda Sheppard, KENNY)0556 (Given - Provider: Rhonda Sheppard, KENNY) 0005 (Given - Provider: Rhonda Sheppard RN)0605 (Given - Provider: Rhonda Sheppard, KENNY) 0.3-0.5 [...] 0.5 mg 1145 (Given - Provider: Geovanny oGnsalez RN) 0408 (Given - Provider: Rhonda Sheppard, [...] mg 0454 (Given - Pr ovider: Rhonda Sheppard, KENNY)1352 (Given - Provider: Patricia Gonsalez RN) 0116 (Given - Provider: Rhonda Sheppard, KENNY)0930 (Given - Provider: Huong Adams, KENNY)2359 (Given - Provider: Rhonda Sheppard RN) 0648 (Given - Provider: uJanis Tejeda) 500 mg, Oral, EVERY 6 HOURS PRN, muscle spasms, Starting 10/14 at 1507 metoclopramide (REGLAN) injection 10 mg(Linked Group 3) 3634 (Given - Provider: Emma Morales RN) 10 mg, Intravenous, Administer over 2 Mi nutes, EVERY 6 HOURS PRN, Starting Mon10/23/17 at 1417, nausea, vomiting, This is Step [...] metoclopramide (REGLAN) tablet 10 mg(Linked Group 3) 1963 (See Alternative - Provider: Emma Morales RN) [...] 0858 (See Alternative - Provider: Huong Adams RN)2048 (See Alternative - Provider: Emma Morales RN) [...] RN) 0858 (Given - Provider: Huong Adams RN)2048 (Given - Provider: Emma Morales RN) 0842 [...] Morales RN) 0102 (Given - Provider: Rhonda Sheppard, KENNY)0407 (Given - Provider: Rhonda Sheppard, KENNY)0707 (Given - Provider: Rhonda Sheppard, RN)1055 (Given - Provider: Huong Adams, RN)1450 (Given - Provider: Huong Adams, RN)1758 (Given - Provider: Emma Morales RN) 0211 (Given - Provider: Rhonda Sheppard, KENNY)0521 (Given - Provider: Rhonda Sheppard, KENNY)0908 (Given - Provider: Steffanie Killian RN)1235 (Given [...] or analgesic side effects. Hold while on MOLDED PARTS INSPECTOR or with regular IV opioid dosing. Maximum [...] prochlorperazine (COMPAZINE) tablet 10 mg(Linked Group 5) 4 (Given - Provider: Emma Morales RN) 1235 [...] used when administering multiple Central Nervous System (PRESS SHOP SUPERVISOR) depressing meds within a short time frame.
Post-procedure Or diphenhydrAMINE (BENADRYL) injection 25 mgJump to med 25 mg, Intravenous, EVERY 6 HOURS PRN, i tching, Only give if patient unable to take PO., Starting 10/23/17 at 1417
Caution to be used when administering multiple Central Nervous System (PRESS SHOP SUPERVISOR) depressing meds within a short time [...]
Post-procedure documented in this encounter Care Teams Die Sinking Machine Operator Relationship Specialty Start Date End Date Keri Elias PCP - General Family Practice 03/12/15 9 MD Ira Glez David Wayne, MD Orthopedics 07/09/14 [facility] [place] [address] Astrid Rios PA-C Physician Contact Center Rep Physician Contact Center Rep - 07/09/14 Surgical documented as of this encounter
--- OUTSIDE RECORDS SUMMARY | 2022-01-23 08:25 | XMS_ITS | Encounter Summary ---
:1980 Author Organization [place] Address [facility] [place] [address] Care Team Providers Name Role Phone Myles De Oliveira MD Unavailable Astrid Rios PA-C Unavailable Keri Elias MD Primary Care Provider Unavailable Reason for Visit Auth/Cert Specialty Diagnoses / Procedures Referred By Contact Refer red To Contact Surgery Diagnoses Scoliosis Kyphosis Ur Periop Procedures [facility] [address] [place] [address] Phone: Fax: Referral ID Status Reason Start Date Expiration Date Visits Requ ested Visits Authorized [id number] 1 1 Encounter Details Date Type Department Care Team Description 10/23/2017 Surgery [facility] Myles De Oliveira Exten dayna Of Fusion PeriOp Services MD Devan Thoracic 4-Thoracic [id number] [facility] [address] [facility] [place] [address] [place], [place] Osteotomies Thoracic [phone] [id number] Surgery Details Date/Time Status Location OR [...] 12/13/2017 3:00 PM Myles De Oliveira MD [facility] 01/17/2018 7:45 AM Myles De Oliveira MD [facility] Orthopaedic Surgery appointments are at the [facility] [place] ([address] [place] [address]). Call [phone] to schedule a follow-up appointment at this [...] CHANGED Details fluticasone (FLONASE) 50 MCG/ACT spray Spring 1-2 sprays into both nostrils daily, Disp-16 g, R-3, E-Prescribe pseudoePHEDrine (SUDAFED) 120 MG 12 hr tablet Take 120 mg by mouth every morning, Historical STOP taking these medications ibuprofen (ADVIL/MOTRIN) 600 MG tablet Comments: Reason for Stopping: Discharge Procedure Orders Reason for your hospital stay Order Comments: You were hospitalized after surgery for pain control and therapy. Adult [facility] Follow-up and recommended labs and tests Order Comments: You have an appointment with Dr. De Oliveira on 12/13/17. [facility] [place] ([address] [place] [address]). Call [phone] to schedule a follow-up appointment at this [...] from 7 am to 7 pm daily [facility] [place] ([address] [place] [address]). -Pain control: Take medication as prescribed, but [...] help keep you hydrated. -CALL OUR CLINIC ([phone] during regular office hours, or [phone] for the on-call residentMD for questions - [...] Start Date End Date fluticasone (FLONASE) 50 Spring 1-2 sprays 16 g 3 07/05 MCG/ACT [...] prior to contacting the Orthopaedic Surgery resident air conditioning service technician. Thank you! Sunni Hernandez MD - 10/26/2017 1:21 PM CDT Urinary retention No BM yet Ambulating with PT Last night nursing notes reviewed No cp No sob No fever No chills No vomiting No loss of consciousness Vital signs: Temp: 99.1 ??F (37.3 ??C) Temp src: Oral BP: 97/50 Pulse: 114 Heart Rate: 103 Resp: 16 SpO2: 98 % F2Baqdim: None (Room air) Oxygen Delivery: 6 LPM [...] Rivera RN - 10/26/2017 10:58 AM CDT Program Planner Progress Note Admission Date/Time: 10/23/2017 Attending MD: [...] Plan: home Angelica RAMOSN RN CCM RN Program Planner 10A E-mail: [email or web address] Pager: [phone] To contact weekend RNCC, dial * [phone] and enter pager number [phone] at prompt. [...] prior to contacting the Orthopaedic Surgery resident air conditioning service technician. Thank you! Sunni Otoole MD - 10/25/2017 [...] Mobility Skill: Sit to Supine Level of [place]: Sit/Supine stand-by assist Bed Mobility Skill: Supine to Sit Level of [place]: Supine/Sit stand-by assist Transfer Skill: Bed to Chair/Chair to Bed Level of [place]: Bed to Chair stand-by assist Assistive Device - Transfer Skill Bed to Chair Chair to Bed Rehab Eval standard walker Transfer Skill: Sit to Stand Level of [place]: Sit/Stand stand-by assist Assistive Device for Transfer: Sit/Stand standard walker Transfer Skill: Toilet Transfer Level of [place]: Toilet stand-by assist Upper Body Dressing Level of [place]: Dress Upper Body independent Lower Body Dressing Level of [place]: Dress Lower Body stand-by assist Toileting Level of [place]: Toilet stand-by assist Grooming Level of [place]: Grooming independent Eating/Self Feeding Level of [place]: Eating independent Activities of Daily Living Analysis Impairments Contributing to Impaired Activities of Daily Living pain;post surgical precautions;ROM decreased Clinical Impression Criteria for Skilled Therapeutic Interventions Met evaluation only Risks and Benefits of Treatment have been explained. Yes Patient, Family & other staff in agreement with plan of care Yes [facility]-PAC TM 6 Clicks ?? 2016, [facility], under license to [employer]. All rights reserved. 6 Clicks Short Forms Daily Activity Inpatient Short Form [facility] AM-PAC??? 6 Clicks Daily Activity Inpatient [...] prior to contacting the Orthopaedic Surgery resident air conditioning service technician. Thank you! Sunni Otoole MD - 10/24/2017 [...] Pericolace . Add miralax Discuss with ortho INTEGRATION LEAD and care team rounds Tala Roche Pt, PT - 10/24/2017 10:19 AM CDT 10/24/17 1004 Quick Adds Type of Visit Initial PT Evaluation Human Resources Partner Human Resources Partner Present no Language Serbian Living Environment Lives With child(gabino), dependent;significant other [...] in agreement with plan of care Yes [facility]-PAC TM 6 Clicks ?? 2016, [facility], under license to [employer]. All rights reserved. 6 Clicks Short Forms Basic Mobility Inpatient Short Form [facility]??? 6 Clicks V.2 Basic Mobility Inpatient Short [...] prior to contacting the Orthopaedic Surgery resident air conditioning service technician. Thank you! documented in this encounter Consult Notes Michael Hilario MD - 10/23/2017 3:54 PM CDTAssociated Order(s): INTERNAL MEDICINE ADULT IP CONSULT FOR [facility] INTERNAL MEDICINE CONSULTATION REQUESTING PHYSICIAN: Myles De Oliveira MD REASON FOR CONSULTATION: For recommendations for medical comorbidities. Assessment Jocelin Garg is a 37 year old female admitted on 10/23/2017 for spinal Sx 1) Extension Of Fusion Thoracic 4-Thoracic 10, Rivera Khan Osteotomies Thoracic 6-10 post op D# 0 Hemodynamics: stable - continue on IV fluids, until adequate PO. Analgesia: adequate , on HAND TUFTER Antiemetics: as per protocol. If does not [...] with any questions. Michael Hilario MD (Pager- [phone]) Internal Medicine/ Hospitalist CHIEF COMPLAINT: 37 year [...] to Encounter: fluticasone (FLONASE) 50 MCG/ACT spray Spring 1-2 sprays into both nostrils daily (Patient taking differently: Spring 1-2 sprays into both nostrils as needed [...] a 37 year old female who speaks Serbian. Procedure Procedure(s): Extension Of Fusion Thoracic 4-Thoracic 10, Rivera Hkan Osteotomies Thoracic 6-10 - Wound Class: I-Clean [...] mg (total dose) last given at 1245 HAND TUFTER / epidural Yes. HAND TUFTER - hydromorphone (Dilaudid) Capnography Yes Telemetry ECG Rhythm: Normal sinus rhythm Inpatient Financial Assistant Ordered? No Labs Glucose Lab Results Component Value Date GLC 90 09/29/2017 Hgb Lab Results Component Value Date HGB 12.5 09/29/2017 INR Lab Results Component Value Date INR 1.02 09/29/2017 PACU Imaging Not applicable Wound/Incision Incision/Surgical Site 10/23/17 Back (Active) Incision Assessment [facility] 10/23/2017 11:18 AM Closure Approximated;Liquid bandage 10/23/2017 [...] Date 10/23/17 0700 - 10/24/17 0659 Shift 5107-9557 0946-0844 6766-7702 24 Hour Total I N T A K E I.V. 1450 1450 Shift Total (mL/kg) 1450 (21.05) 1450 (21.05) O U T P U T Urine 100 100 Blood 310 310 Shift Total (mL/kg) 410 (5.95) 410 (5.95) Weight (kg) 68.9 68.9 68.9 68.9 Drains / Florez Closed/Suction Drain Back Accordion 10 Haitian (Active) Site Description [facility] 10/23/2017 12:07 PM Dressing Status Normal: Clean, Dry & Intact 10/23/2017 12:07 PM Drainage Appearance Normal 10/23/2017 12:07 PM Number of days:0 Urethral Catheter Latex 16 fr (Active) Tube Description [facility] 10/23/2017 12:07 PM Collection Container [...] needing completion None René Esposito, RN ASCOM [id number] documented in this encounter Miscellaneous Notes Plan [...] goal(s). See goals on Care Plan in [facility] electronic health record for goal details. Goals met Therapy recommendation(s): Continue home exercise program. Plan of Care - Jocelin Mayes PT - 10/26/2017 10:32 AM CDT Problem: Patient Care Overview Goal: Plan of Care/Patient Progress Review Waiter/Waitress Buffet PT Patient plan for discharge: Home Current [...] Overview Goal: Plan of Care/Patient Progress Review Waiter/Waitress Buffet PT Patient plan for discharge: Home with [...] had oxycodone dose increased to 10-15mg. Dilaudid HAND TUFTER discontinued this am.Offered ice packs but pt [...] Overview Goal: Plan of Care/Patient Progress Review Waiter/Waitress Buffet PT Patient plan for discharge: Home with [...] Care/Patient Progress Review A/O x 4. Increased HAND TUFTER from 0.2 to 0.3 due to inadequate [...] 1 Skin: Intact Pain: Moderate. Manageable w/ HAND TUFTER pump. Neuro/CMS: Intact, no numbness or tingling reported Dressing(s): Posterior back CDI Diet: Clear liquids, tolerating well. Equipment: CAPNO HAND TUFTER pump IV's/Drains: PIV R hand infusing NS 100mL/hr and HAND TUFTER pump Hemovac - 0ccs Florez - patent Plan: Continue to monitor Additional Info: Discontinue HAND TUFTER pump POD #1 Discontinue florez POD #1 [...] of surgical incisions and hemovac replacement Pain: HAND TUFTER dilaudid on and verified. Pt has discomfort in lower back. And bladder Neuro/CMS: Intact denies numbness and tingling. Prior to surgery pt had intermittently tingling in BL feet. Dressing(s): CDI Aquacel posterior from neck down to Buttocks. hemovac in place CDI. Diet: C.liq. Nausea Zofran given LDA: PIV left hand running LR and Dilaudid HAND TUFTER. R hand piv SL. Hemovac in place and patent. Aquacel. Florez catheter. Equipment: IV pole, PCDs, HAND TUFTER pump. CAPNO Plan: TBT Additional Info: Pt [...] Myles De Oliveira MD N/A None available House Wrecker(s): Huong Stock PA-C Anesthesia: General Estimated blood [...] to PACU Plan: Pain: Scheduled Tylenol, Dilaudid HAND TUFTER, oxycodone PRN, Valium PRN Activity: Weight bearing [...] in 5-7 days. Huong Stock PA-C Pager: [phone] If no answer or after 4pm, please page the air conditioning service technician ortho resident. Op Note - Myles De [...] surgery SURGEON: Myles De Oliveira Jr., MD [place] ENGINEER: Huong Stock PA-C. No qualified resident [...] then turned in position prone on a [facility] 4-space sciences director frame. She was prepared and draped in [...] the O- arm and transferred to the MED[employer] image-guided workstation. This was now used to [...] CC Name: JOCELIN PINEDO MRN: [id number] Account: [id number] : 1980 Procedure Date: 10/23/2017 Document: [id number] cc: Copy for Patient Keri Mitchell Beaulieu [...] spine. Positive global coronal imbalance. Sagittal Vertical [place] (A vertical line drawn from the center [...] spine. Positive global coronal imbalance. Sagittal Vertical [place] (A vertical line drawn from the center [...] Component Value Ref Test Analysis Performed At [facility] gist Range Method Time Signature Color Urine Light Yellow 10/26/2017 [facility] 3:08 PM T [facility] Appearance Urine Clear 10/26/2017 [facility] O F 3:08 PM CDT [facility] Glucose Urine Negative NEG^Nega 10/26/2017 [facility] tive 3:08 PM CDT [facility] mg/dL [facility] Bilirubin Urine Negative NEG^Nega 10/26/2017 [facility] Ketones Urine 10 (A) NEG^Nega 10/26/2017 [facility] tive 3:08 PM CDT [place] [facility] mg/dL [facility] Specific [place] 1.005 1.003 - 10/26/2017 [place] O F Urine 1.035 3:08 PM T [facility] Blood Urine Moderate (A) NEG^Nega 10/26/2017 [facility] tive 3:08 PM T [facility] pH Urine 6.5 5.0 - 10/26/2017 [facility] 7.0 pH 3:08 PM T [facility] Protein Albumin Negative NEG^Nega 10/26/2017 [facility] Urine tive 3:08 PM CDT [place] [facility] mg/dL [facility] Urobilinogen Normal 0.0 - 10/26/2017 [facility] mg/dL 2.0 3:08 PM CDT [place] [facility] mg/dL [facility] Nitrite Urine Negative NEG^Nega 10/26/2017 [facility] tive 3:08 PM CDT [facility] Leukocyte Negative NEG^Nega 10/26/2017 [facility] Esterase Urine tive 3:08 PM CDT [facility] Source Unspecified 10/26/2017 [facility] Urine 2:54 PM CDT [facility] WBC Urine 1 0 - 5 10/26/2017 [facility] /HPF 3:08 PM CDT [facility] RBC Urine 1 0 - 2 10/26/2017 [facility] /HPF 3:08 PM CDT [facility] Squamous <1 0 - 1 10/26/2017 [facility] Epithelial /HPF /HPF 3:08 PM CDT [facility] Specimen (Source) Anatomical Collection Method Collection Time Re ceived Time Location / / Volume Laterality Unspecified Urine URINE SPECIMEN 10/26/2017 2:40 10/26 2:54 OBTAINED BY CLEAN PM CDT PM CDT CATCH PROCEDURE / Unknown Sunni Hernandez MD LAB - URINE ORDERABLES Performing Organization Address City/State/ZIP Code Phon e Number [facility] [address] [place] [address] [facility] (ABNORMAL) CBC with platelets (10/26/2017 8:00 AM CDT) [facility] gist Method Time Signature WBC 6.1 4.0 - 11.0 10/26/2017 [facility] 10e9/L 8:24 AM CDT [facility] RBC Count 3.88 3.8 - 5.2 10/26/2017 [facility] 10e12/L 8:24 AM CDT [facility] Hemoglobin 9.9 (L) 11.7 - 10/26/2017 [facility] 15.7 g/dL 8:24 AM CDT [facility] Hematocrit 30.5 (L) 35.0 - 10/26/2017 [facility] 47.0 % 8:24 AM CDT [facility] MCV 79 78 - 100 10/26/2017 [facility] fl 8:24 AM CDT [facility] MCH 25.5 (L) 26.5 - 10/26/2017 [facility] 33.0 pg 8:24 AM CDT [facility] MCHC 32.5 31.5 - 10/26/2017 [facility] 36.5 g/dL 8:24 AM CDT [facility] RDW 13.3 10.0 - 10/26/2017 [facility] 15.0 % 8:24 AM CDT [facility] Platelet Count 244 150 - 450 10/26/2017 [facility] 10e9/L 8:24 AM CDT [facility] Specimen Anatomical Collection Method Collection Time Receive d Time (Source) Location / / Volume Laterality Blood specimen 10/26/2017 8:00 AM 018 8:01 (specimen) CDT AM CDT Huong Stock PA-C LAB - BLOOD ORDERABLES Performing Organization Address City/State/ZIP Code Phon e Number [facility] [address] [place] [address] [facility] (ABNORMAL) Glucose by meter (10/25/2017 8:34 AM [...] OF 10e9/L 6:34 AM CDT [facility] RBC Count 4.03 3.8 - 5.2 10/25/2017 [facility] 10e12/L 6:34 AM CDT [facility] Hemoglobin 10.2 (L) 11.7 - 10/25/2017 [facility] 15.7 g/dL 6:34 AM CDT [facility] Hematocrit 32.0 (L) 35.0 - 10/25/2017 [facility] 47.0 % 6:34 AM CDT [facility] MCV 79 78 - 100 10/25/2017 [facility] fl 6:34 AM CDT [facility] MCH 25.3 (L) 26.5 - 10/25/2017 [facility] 33.0 pg 6:34 AM CDT [facility] MCHC 31.9 31.5 - 10/25/2017 [facility] 36.5 g/dL 6:34 AM CDT [facility] RDW 13.5 10.0 - 10/25/2017 [facility] 15.0 % 6:34 AM CDT [facility] Platelet Count 248 150 - 450 10/25/2017 [facility] 10e9/L 6:34 AM CDT [facility] Specimen Anatomical Collection Method Collection Time Receive d Time (Source) Location / / Volume Laterality Blood specimen 10/25/2017 6:26 AM 018 6:28 (specimen) CDT AM CDT Huong Stock PA-C LAB - BLOOD ORDERABLES Performing Organization Address City/State/ZIP Code Phon e Number [facility] [address] [place] [address] [facility] (ABNORMAL) CBC with platelets (10/24/2017 7:05 AM CDT) [facility] gist Method Time Signature WBC 8.8 4.0 - 11.0 10/24/2017 [facility] 10e9/L 7:17 AM CDT [facility] RBC Count 4.04 3.8 - 5.2 10/24/2017 [facility] 10e12/L 7:17 AM CDT [facility] Hemoglobin 10.2 (L) 11.7 - 10/24/2017 [facility] 15.7 g/dL 7:17 AM CDT [facility] Hematocrit 32.2 (L) 35.0 - 10/24/2017 [facility] 47.0 % 7:17 AM CDT [facility] MCV 80 78 - 100 10/24/2017 [facility] 7:17 AM CDT [facility] MCH 25.2 (L) 26.5 - 10/24/2017 [facility] 33.0 pg 7:17 AM CDT [facility] MCHC 31.7 31.5 - 10/24/2017 [facility] 36.5 g/dL 7:17 AM CDT [facility] RDW 13.3 10.0 - 10/24/2017 [facility] 15.0 % 7:17 AM CDT [facility] Platelet Count 235 150 - 450 10/24/2017 [facility] 10e9/L 7:17 AM T [facility] Specimen Anatomical Collection Method Collection Time Receive d Time (Source) Location / / Volume Laterality Blood specimen 10/24/2017 7:05 AM 018 7:06 (specimen) CDT AM CDT Huong Stock PA-C LAB - BLOOD ORDERABLES Performing Organization Address City/State/ZIP Code Phon e Number [facility] [address] [place] [address] [facility] (ABNORMAL) Basic metabolic panel (10/24/2017 7:05 AM CDT) Analysis Performed At Patho logist Time Signature Sodium 144 133 - 144 10/24/2017 [facility] mmol/L 7:33 AM [facility] Potassium 3.6 3.4 - 5.3 10/24/2017 [facility] mmol/L 7:33 AM [facility] Chloride 110 (H) 94 - 109 10/24/2017 [facility] mmol/L 7:33 AM [facility] Carbon Dioxide 27 20 - 32 10/24/2017 [facility] mmol/L 7:33 AM [facility] Anion Gap 7 3 - 14 10/24/2017 [facility] mmol/L 7:33 AM [facility] Glucose 99 70 - 99 10/24/2017 [facility] mg/dL 7:33 AM [facility] Urea Nitrogen 6 (L) 7 - 30 10/24/2017 [facility] mg/dL 7:33 AM [facility] Creatinine 0.74 0.52 - 10/24/2017 [facility] 1.04 mg/dL 7:33 AM [facility] GFR Estimate 89 >60 10/24/2017 [facility] mL/min/1.7 7:[address] Comment: Non GFR Calc GFR Estimate If >90 >60 mL/min/1.7m2 10/24/2017 7:33 A M [facility] Black [facility] Comment: GFR Calc Calcium 7.6 (L) 8.5 - 10.1 mg/dL 10/24/2017 7:33 AM CDT [facility] Specimen Anatomical Collection Method Collection Time Receive d Time (Source) Location / / Volume Laterality Blood specimen 10/24/2017 7:05 AM 018 7:06 (specimen) CDT AM CDT Huong Stock PA-C LAB - BLOOD ORDERABLES Performing Organization Address City/State/ZIP Code Phon e Number [facility] [address] [place] [address] [facility] (ABNORMAL) Glucose by meter (10/24/2017 2:17 AM [...] be read by a radiologist or a [facility] non-radiologis t provider. Myles De Oliveira MD [...] Signature HCG Qual Urine Negative NEG^Negati 10/23/2017 [facility] 6:22 AM CDT [facility] Comment: This test is for screening purposes. ??R esults should be interpreted along with the clinical picture. ??Confirmation te sting is available if warranted by ordering [id number], HCG Quantitative Pregna ncy. Specimen Anatomical Collection Method Collection Time Receive d Time (Source) Location / / Volume Laterality Urine specimen URINE SPECIMEN / 10/23/2017 5:50 AM 11/2017 6:06 (specimen) Unknown CDT AM CDT Sarah Parry MD LAB - URINE ORDERABLES Performing Organization Address City/[facility]/ZIP Code Phon e Number [facility] [address] [place], [place] [id number] [place] [address] EMG - HIM SCAN (10/23/2017 12:00 AM [...] used when administering multiple Central Nervous System (CONFERENCE SERVICES COORDINATOR) depressing meds within a short time frame., Post-procedure Given 10/24/2017 6:06 AM CDT 25 mg diphenhydrAMINE (BENADRYL) injection 25 mg 25 mg, Intravenous, EVERY 6 HOURS PRN, i tching, Only give if patient unable to take PO., Starting on Mon10/23/17 at 1417, Caution to be us ed when administering multiple Central Nervous System (CONFERENCE SERVICES COORDINATOR) de pressing meds within a short time [...] or analgesic side effects. Hold while on HAND TUFTER or with regular IV opioid dosing. Maximum [...] 10/27/2017 acetaminophen (TYLENOL) tablet 975 mg () 4275 ( Given - Provider: Rhonda Sheppard RN)1585 (Given - Provider: Patricia Gonsalez RN)0674 (Given - Provider: Emma Morales RN) 0707 [...] (Patch in Place - Provider: Rhonda Sheppard, RN)1130 (Patch in Place - Provider: Patricia Gonsalez [...] DAILY, First dos e on Mon10/23/17 at 1999, If no bowel movement in 24 hours, [...] First dos e on Shena 10/26/17 at 1999, If no bowel movement in 24 hours, [...] Reason: Med discontinued by Provider - Comment: locator specialist d/c'd)1148 (Given - Provider: Patricia Gonsalez, RN)2157 (Given - Provider: Emma Morales RN) 0709 (Given - Provider: Rhonda Sheppard, Juanis N)1221 (Given - Provider: Huong Adams, KENNY)213 (z Missed (do not use) - Provider: [...] used when administering multiple Central Nervous System (CONFERENCE SERVICES COORDINATOR) depressing meds within a short time frame., Post-procedure diphenhydrAMINE (BENADRYL) injection 25 mg(Linked Grou p 2) 0327 (See Alternative - Provider: Rhonda Sheppard RN) 25 mg, Intravenous, EVERY 6 HOURS PRN, i tching, Only give if patient unable to take PO., Starting 10/23/17 at 1417, Caution to be used when administering multiple Central Nervous System (CONFERENCE SERVICES COORDINATOR) depress ing meds within a short time frame. For ordered doses up to 50 mg, give IV Push undiluted. Give each 25mg over a minimum of 1 minute. Extend in non-emergency, Post-procedure HYDROmorphone (PF) (DILAUDID) injection 0.3-0.5 mg 033 1 (Given - Provider: Rhonda Sheppard RN)0556 (Given - Provider: Rhonda Sheppard RN) 0005 (Given - Provider: Rhonda Sheppard RN)0605 [...] Rhonda Sheppard RN)0930 (Given - Provider: Huong Adams RN)6852 (Given - Provider: Rhonda Sheppard RN) 0601 (Given - Provider: Juanis Tejeda) 500 mg, Oral, EVERY 6 HOURS PRN, muscle spasms, Starting 10/14 at 1507 metoclopramide (REGLAN) injection 10 mg(Linked Group 3) 7837 (Given - Provider: Emma Morales RN) 10 [...] metoclopramide (REGLAN) tablet 10 mg(Linked Group 3) 1498 (See Alternative - Provider: Emma Morales RN) [...] Rhonda Sheppard RN)0707 (Given - Provider: Rhonda Sheppard, RN)1055 (Given - Provider: Huong Adams RN)1450 (Given - Provider: Huong Adams RN)1758 (Given - Provider: Emma Morales RN) [...] with the lowest dose. May adjust do 2154 (Given - Provider: Emma Morales RN) 2048 (Given - Provider: Emma Morales RN)2 317 (Given - Provider: Emma Morales RN) se by 5 mg every 3 hours as needed. Noti fy provider to assess for uncontrolled pain or analgesic side effects. Hold while on HAND TUFTER or with regular IV opioid dosing. Maximum [...] First dos e on Shena 10/26/17 at 1999
If no bowel movement in 24 hours, [...] used when administering multiple Central Nervous System (CONFERENCE SERVICES COORDINATOR) depressing meds within a short time frame.
Post-procedure Or diphenhydrAMINE (BENADRYL) injection 25 mgJump to med 25 mg, Intravenous, EVERY 6 HOURS PRN, i tching, Only give if patient unable to take PO., Starting 10/23/17 at 1417
Caution to be used when administering multiple Central Nervous System (CONFERENCE SERVICES COORDINATOR) depressing meds within a short time fra [...]
Post-procedure documented in this encounter Care Teams Broaching Machine Set Up Operator Relationship Specialty Start Date End Date Keri Elias PCP - General Family Practice 03/12/15 9 MD Ira Glez, Myles Hartman MD Orthopedics 07/09/14 [facility] [place] [address] Astrid Rios PA-C Physician House Wrecker Physician House Wrecker - 07/09/14 Surgical documented as of this encounter
--- OUTSIDE RECORDS SUMMARY | 2022-01-23 08:25 | XMS_ITS | Encounter Summary ---
:1980 Author Organization [place] Address [address] [place] [place] [address] Care Team Providers Name Role Phone Bebeto Roth MD Unavailable Astrid Rios PA-C Unavailable Keri Elias MD Primary Care Provider Unavailable Reason for Visit Reason Comments Prior Auth - Medication Ondansetron 4MG ODT Encounter Details Date Type Department Care Team Description 10/30/2017 Documentation Only [facility] Awa Wilcox Prior Auth - [id number] [facility] MarthaBLAYNE SALESPERSON SURGICAL [place] [address] 1 [facility] (Ondansetron 4MG [phone] SE ODT) [place] [address] Social History Tobacco Use Types [...] I called pt;. & gave her the phone#[phone] for the Medication Prior Auth. Dept. Triage stated this AM pharmacy request was faxed to Prior Auth dept. Pt. Will F/U with them. She states still has slight nausea after surgery & Zofran helps. RTC [id number]. S.O./L:Michelle Deras RN. Laureen Simmons RN - 11/13/2017 11:44 AM CDT [facility] Call Center Phone Message May a detailed message be left on voicemail: yes Reason for Call: Medication Question or concern regarding medication Prescription Clarification Name of Medication: ondansetron (ZOFRAN-ODT) 4 MG ODT tab Prescribing Provider: Dr. Roth Pharmacy: [facility] What on the order needs clarification? Patient [facility] sending PA requestand [...] Appeal Info: Prescription Claim Appeals 109 - [facility] [employer] [address] [address] [place] [address] Fax: Appeal: No Appeal Status:n/a Copay: $6.16 [place] Filled: Yes - Per prescriber, patient was discharge with a quantity that complies with insurance limitations. Insurance: [email or web address] Commercial - [facility] Submitted Via: Stephan Lopez [place] Discharge Pharmacy Liaison [facility] [address], [place] [address] maria [email or web address] Pager: [phone] documented in this encounter Plan of Treatment Not on filedocumented as of this encounter Visit Diagnoses Not on filedocumented in this encounter Care Teams Manager Hiv Relationship Specialty Start Date End Date Keri Elias PCP - General Family Practice 03/12/15 9 MD Ira Glez David Wayne, MD Orthopedics 07/09/[address] [place] [address] Astrid Rios PA-C Physician Lip Reading Teacher Physician Lip Reading Teacher - 07/09/14 Surgical documented as of this encounter
--- OUTSIDE RECORDS SUMMARY | 2022-01-23 08:25 | XMS_ITS | Encounter Summary ---
:1980 Author Organization [place] Address [address] [place] [address] Care Team Providers Name Role Phone Bebeto Roth MD Unavailable Astrid Rios PA-C Unavailable Keri Elias MD Primary Care Provider Unavailable Reason for Visit Reason Onset Date Comments Opioid Refill 11/22/2017 Oxycodone and ROBAXI N Encounter Details Date Type Department Care Team Description 11/22/2017 [facility] Bebeto Roth Opioid Refill Clinic MD Devan (Oxycodone and ROBAXIN) [address] [place] [address] [phone] Social History Tobacco Use Types Packs/Day Years Used Date Smoking Tobacco: Never Smokeless Tobacco: Never Alcohol Use Standard Drinks/Week Comments No 0 (1 standard drink = 0.6 oz pure alcoho l) Sex Assigned at Date Recorded Not on file documented as of this encounter Miscellaneous Notes Telephone Encounter - Rm Aries Skinner - 11/22/2017 10:46 AM CDT [facility] Call Center Phone Message May a [...] status documented in this encounter Care Teams Mechanical Service Technician Relationship Specialty Start Date End Date Keri Elias PCP - General Family Practice 03/12/15 9 MD Ira Glez David Wayne, MD Orthopedics 07/09/[address] [place] [address] Astrid Rios PA-C Physician Brush Cutter Physician Brush Cutter - 07/09/14 Surgical documented as of this encounter
--- OUTSIDE RECORDS SUMMARY | 2022-01-23 08:25 | XMS_ITS | Encounter Summary ---
:1980 Author Organization [place] Address [address] [facility] [place] [address] Care Team Providers Name Role Phone Bebeto Roth MD Unavailable Astrid Rios PA-C Unavailable Keri Elias MD Primary Care Provider Unavailable Reason for Visit Diagnostic Imaging XR - Closed Specialty Diagnoses / Procedures Referred By Contact Refer red To Contact Diagnoses S/P spinal fusion Bebeto Roth MD Procedures XR Spine Complete 2 Views [address] [place], [place] [address] Referral ID Status Reason Start Date Expiration Date Visits Requ ested Visits Authorized [id number] Closed 11/06/2017 11/06/2018 1 1 Encounter Details Date Type Department Care Team Description 12/13/2017 Radiant Appointment [facility] Imaging Bebeto Roth S/P spinal fusion Center Farhana MD Devan 9 [facility] SE [address] [place] [address] [phone] Social History Tobacco Use Types Packs/Day Years [...] No substantial global coronal imbalance. Sagittal Vertical [place] (A vertical line drawn from the center [...] No substantial global coronal imbalance. Sagittal Vertical [place] (A vertical line drawn from the center [...] status documented in this encounter Care Teams Ceramics Teacher Relationship Specialty Start Date End Date Keri Elias PCP - General Family Practice 03/12/15 9 MD Ira Glez David Wayne, MD Orthopedics 07/09/[address] [place] [address] Astrid Rios PA-C Physician Marketing Communications Coordinator Physician Marketing Communications Coordinator - 07/09/14 Surgical documented as of this encounter
--- OUTSIDE RECORDS SUMMARY | 2022-01-23 08:25 | XMS_ITS | Encounter Summary ---
:1980 Author Organization [place] Address [address] [facility] [place] [address] Care Team Providers Name Role Phone Bebeto Roth MD Unavailable Astrid Rios PA-C Unavailable Keri Elias MD Primary Care Provider Unavailable Reason for Visit Diagnostic Imaging XR - Closed Specialty Diagnoses / Procedures Referred By Contact Refer red To Contact Diagnoses S/P spinal fusion Bebeto Roth MD Procedures XR Six Foot Standing Extremities [address] [place], [place] [address] Referral ID Status Reason Start Date Expiration Date Visits Requ ested Visits Authorized [id number] Closed 11/06/2017 11/06/2018 1 1 Encounter Details Date Type Department Care Team Description 12/13/2017 Radiant Appointment [facility] Imaging Bebeto Roth S/P spinal fusion Center Una Hartman MD 9 [facility] [address] [place] [address] [phone] Social History Tobacco Use Types Packs/Day Years [...] No substantial global coronal imbalance. Sagittal Vertical [place] (A vertical line drawn from the center [...] No substantial global coronal imbalance. Sagittal Vertical [place] (A vertical line drawn from the center [...] status documented in this encounter Care Teams Heating Equipment Installer Relationship Specialty Start Date End Date Keri Elias PCP - General Family Practice 03/12/15 9 MD Ira Glez David Wayne, MD Orthopedics 07/09/[address] [place] [address] Astrid Rios PA-C Physician Sharepoint Analyst Physician Sharepoint Analyst - 07/09/14 Surgical documented as of this encounter
--- OUTSIDE RECORDS SUMMARY | 2022-01-23 08:25 | XMS_ITS | Encounter Summary ---
:1980 Author Organization [place] Address [address] [facility] [place] [address] Care Team Providers Name Role Phone Bebeto Roth MD Unavailable Astrid Rios PA-C Unavailable Keri Elias MD Primary Care Provider Unavailable Reason for Referral Diagnostic Imaging XR - Closed Specialty Diagnoses / Procedures Referred By Contact Refer red To Contact Diagnoses S/P spinal fusion Bebeto Roth MD Procedures XR Six Foot Standing Extremities [address] [address] Referral ID Status Reason Start Date Expiration Date Visits Requ ested Visits Authorized [id number] Closed 11/06/2017 11/06/2018 1 1 Diagnostic Imaging XR - Closed Specialty Diagnoses / Procedures Referred By Contact Refer red To Contact Diagnoses S/P spinal fusion Bebeto Roth MD Procedures XR Spine Complete 2 Views [address] [place], [place] [address] Referral ID Status Reason Start Date Expiration Date Visits Requ ested Visits Authorized [id number] Closed 11/06/2017 11/06/2018 1 1 Encounter Details Date Type Department Care Team Description 11/06/[address] [facility] Orthopaedic Bebeto Roth S/P spi nal fusion Clinic MD Devan (Primary Dx) [address] [place] [address] [place] [address] [phone] Social History Tobacco Use Types Packs/Day Years [...] No substantial global coronal imbalance. Sagittal Vertical [place] (A vertical line drawn from the center [...] No substantial global coronal imbalance. Sagittal Vertical [place] (A vertical line drawn from the center [...] No substantial global coronal imbalance. Sagittal Vertical [place] (A vertical line drawn from the center [...] No substantial global coronal imbalance. Sagittal Vertical [place] (A vertical line drawn from the center [...] status documented in this encounter Care Teams Lead Nitrate Processor Relationship Specialty Start Date End Date Keri Elias PCP - General Family Practice 03/12/15 9 MD Ira Glez, Bebeto Hartman MD Orthopedics 07/09/14 [facility] [address] Astrid Rios PA-C Physician Ocean Fishing Guide Physician Ocean Fishing Guide - 07/09/14 Surgical documented as of this encounter
--- OUTSIDE RECORDS SUMMARY | 2022-01-23 08:25 | XMS_ITS | Encounter Summary ---
:1980 Author Organization [place] Address [facility] [place] [address] Care Team Providers Name Role Phone Bebeto Roth MD Unavailable Astrid Rios PA-C Unavailable Keri Elias MD Primary Care Provider Unavailable Reason for Visit Reason Comments Surgical Followup 12 wk pop DOS 10/23/17 Surgical Followup Encounter Details Date Type Department Care Team Description 01/17/2018 Office Visit [facility] Orthopaedic Bebeto Roth S/P spi nal fusion Clinic MD Devan (Primary Dx) [address] [place] [address] [address] [facility] [address] 4th [address] [place] [phone] Social History Tobacco Use Types Packs/Day Years Used Date Smoking Tobacco: Never Smokeless Tobacco: Never Alcohol Use Standard Drinks/Week Comments No 0 (1 standard drink = 0.6 oz pure alcoho l) Sex Assigned at Date Recorded Not on file documented as of this encounter Progress Notes Bebeto Roth MD - 01/17/2018 7:45 AM CST [facility] Orthopedics Bebeto Roth MD 01/17/2018 Name: [...] or symptoms distally. SRS 64% KYLEE: 12 Lviuhk60: 32 Pain scale: 2.5/10 Physical Examination: Focused [...] No Joint stiffness: No Bone fracture: No L DRESSING CUTTER documented in this encounter Nursing Notes Catherine Peralta, ATC - 01/17/2018 7:45 AM CST Reason For Visit: Chief Complaint Patient presents with ??? Spine - Surgical Followup ??? Surgical Followup 12 wk pop DOS 10/23/17 Primary MD: Keri Elias MD: Self Referred ?? Assembly Line Machine Operator? 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 Work [...] data might be hidden Catherine Peralta ATC L DRESSING CUTTER documented in this encounter Plan of Treatment Not on filedocumented as of this encounter Visit Diagnoses Diagnosis S/P spinal fusion - Primary Arthrodesis status documented in this encounter Care Teams Trade Union Secretary Relationship Specialty Start Date End Date Keri Elias PCP - General Family Practice 03/12/15 9 MD Ira Glez David Wayne, MD Orthopedics 07/09/[address] [place] [address] Astrid Rios PA-C Physician Buffet Waiter/Waitress Physician Buffet Waiter/Waitress - 07/09/14 Surgical documented as of this encounter
--- OUTSIDE RECORDS SUMMARY | 2022-01-23 08:25 | XMS_ITS | Encounter Summary ---
:1980 Author Organization [place] Address [facility] [place] [address] Care Team Providers Name Role Phone Bebeto Roth MD Unavailable Astrid Rios PA-C Unavailable Keri Elias MD Primary Care Provider Unavailable Reason for Visit Reason Comments Surgical Followup 7 wk pop DOS 10/14/17 extensio n of thoracic fusion Surgical Followup Encounter Details Date Type Department Care Team Description 12/13/2017 Office Visit [facility] Orthopaedic Bebeto Roth S/P spi nal fusion Clinic MD Devan (Primary Dx) [address] [place] [address] 4th [address] [place] [address] [phone] Social History Tobacco Use Types Packs/Day Years [...] Marjan Morataya - 12/13/2017 3:00 PM CDT [facility] Orthopedics Bebeto Roth MD 12/13/2017 Name: [...] denies problems with the incision. KYLEE: 24% Illvht33: 29 Pain scale: 4 Physical Examination: Ht [...] MD: Keri Elias Ref. MD: Self Referred Accounting Clerk? 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 Work [...] status documented in this encounter Care Teams Dyeing Machine Back Tender Relationship Specialty Start Date End Date Keri Elias PCP - General Family Practice 03/12/15 9 MD Ira Glez David Wayne, MD Orthopedics 07/09/14 [facility][note 3][address] [place] [address] Astrid Rios PA-C Physician Field Map Technician Physician Field Map Technician - 07/09/14 Surgical documented as of this encounter
--- OUTSIDE RECORDS SUMMARY | 2022-01-23 08:25 | XMS_ITS | Encounter Summary ---
:1980 Author Organization [place] Address [facility]0 [facility] [place] [address] Care Team Providers Name Role Phone Bebeto Roth MD Unavailable Astrid Rios PA-C Unavailable Keri Elias MD Primary Care Provider Unavailable Reason for Visit Reason Onset Date Comments Refill Request 11/09/2017 Encounter Details Date Type Department Care Team Description 11/09/2017 Refill [facility] Orthopaedic Clinic Bebeto Roth MD Refill Request [address] 4th Floor [place], [place] [address] [place] [phone] Social History Tobacco Use Types Packs/Day Years [...] documented in this encounter Care Teams Manager Administrative Services Relationship Specialty Start Date End Date Keri Elias PCP - General Family Practice 03/12/15 9 MD Ira Glez, Bebeto Hartman MD Orthopedics 07/09/[address] [place] [address] Astrid Rios PA-C Physician Building Construction Ironworker Physician Building Construction Ironworker - 07/09/14 Surgical documented as of this encounter
--- OUTSIDE RECORDS SUMMARY | 2022-01-23 08:25 | XMS_ITS | Encounter Summary ---
:1980 Author Organization [place] Address [facility] [address] Care Team Providers Name Role Phone Bebeto Roth MD Unavailable Astrid Rios PA-C Unavailable Keri Elias MD Primary Care Provider Unavailable Reason for Visit Diagnostic Imaging XR - Closed Specialty Diagnoses / Procedures Referred By Contact Refer red To Contact Diagnoses Scoliosis Kyphosis (acquired) (postural) Bebeto Roth MD Procedures XR Spine Complete Scoliosis [address] [place], [place] [address] Referral ID Status Reason Start Date Expiration Date Visits Requ ested Visits Authorized [id number] Closed 01/10/2018 01/10/2019 1 1 Encounter Details Date Type Department Care Team Description 01/17/2018 Radiant Appointment [facility] Imaging Bebeto Roth Scol iosis; Center Xray MD Devan Kyphosis (acquired) (postural) [address] [facility] [address] 1st [address] [facility], [address] [place] [address] [phone] Social History Tobacco Use Types Packs/Day Years [...] Scoliosis Results for this SCOLIOSIS 2 VIEWS HEAD KNITTING MACHINE FIXER Kyphosis (acquired) pro cedure are in (postural) the results section. documented in this encounter Results XR Spine Complete Scoliosis 2 Views (01/17/2018 8:41 AM HEAD KNITTING MACHINE FIXER) Anatomical Region Laterality Modality Spine Computed Radiography Specimen (Source) Anatomical Location Collection Method / Collectio n Time Received Time / Laterality Volume Impressions 01/17/2018 2:07 PM HEAD KNITTING MACHINE FIXER Impression: 1. Fusion instrumentation from T4 throug h L3 without evidence of hardware complication. 2. Mild convex right curvature of the th oracolumbar/lumbar spine with apex at T12. 3. No substantial global coronal imbalan ce. 4. Normal sagittal vertical axis. MADALYN ZARAGOZA MD Narrative 01/17/2018 2:07 PM HEAD KNITTING MACHINE FIXER Exam: XR SPINE COMPLETE SCOLIOSIS 2 VW, [...] No substantial global coronal imbalance. Sagittal Vertical [place] (A vertical line drawn from the center [...] No substantial global coronal imbalance. Sagittal Vertical [place] (A vertical line drawn from the center [...] (postural) documented in this encounter Care Teams Dental Director Relationship Specialty Start Date End Date Keri Elias PCP - General Family Practice 03/12/15 9 [place] Ira echavarria David Wayne, MD Orthopedics 07/09/[address] [place] [address] Astrid Rios PA-C Physician Chief Operations Officer Physician Chief Operations Officer - 07/09/14 Surgical documented as of this encounter
--- OUTSIDE RECORDS SUMMARY | 2022-01-23 08:26 | XMS_ITS | Encounter Summary ---
:1980 Author Organization [place] Address [facility] [place] [address] Care Team Providers Name Role Phone Bebeto Roth MD Unavailable Astird Rios PA-C Unavailable Keri Elias MD Primary Care Provider Unavailable Reason for Visit Diagnostic Imaging XR - Closed Specialty Diagnoses / Procedures Referred By Contact Refer red To Contact Diagnoses S/P spinal fusion Bebeto Roth MD Procedures XR Spine Complete [address] Views [address] [place], [place] [address] Referral ID Status Reason Start Date Expiration Date Visits Requ ested Visits Authorized [id number] Closed 03/27/2017 03/27/2018 1 1 Encounter Details Date Type Department Care Team Description 03/30/2017 Radiant Appointment [facility] Imaging Bebeto Roth S/P spinal fusion Center Farhana MD Devan 9 [facility] SE [address] 1st [address] [place] [address] [phone] Social History Tobacco Use Types Packs/Day Years [...] n Results for this SCOLIOSIS 2 VIEWS ELASTIC ATTACHER CHAINSTITCH procedure are in the results section. documented in this encounter Results XR Spine Complete 2 Views (03/30/2017 12:40 PM ELASTIC ATTACHER CHAINSTITCH) Anatomical Region Laterality Modality Spine Computed Radiography Specimen (Source) Anatomical Location Collection Method / Collectio n Time Received Time / Laterality Volume Impressions 03/30/2017 1:17 PM ELASTIC ATTACHER CHAINSTITCH Impression: 1. Mild right convexed curvature of the main thoracic spine. 2. No ??global sagittal imbalance. 3. Weight bearing axis as detailed above . 4. Stable posterior instrumented fusion from T10 to L3 ALISHA POPE MD Narrative 03/30/2017 1:17 PM ELASTIC ATTACHER CHAINSTITCH EXAMINATION: XR SPINE COMPLETE 2 VW, XR [...] No substantial global coronal imbalance. Sagittal Vertical [place] (A vertical line drawn from the center [...] No substantial global coronal imbalance. Sagittal Vertical [place] (A vertical line drawn from the center [...] status documented in this encounter Care Teams Line Installation Supervisor Relationship Specialty Start Date End Date Keri Elias PCP - General Family Practice 03/12/15 9 MD Ira Glez David Wayne, MD Orthopedics 07/09/[address] [place] [address] Astrid Rios PA-C Physician Certified Nurse Operating Room Physician Certified Nurse Operating Room - 07/09/14 Surgical documented as of this encounter
--- OUTSIDE RECORDS SUMMARY | 2022-01-23 08:26 | XMS_ITS | Encounter Summary ---
:1980 Author Organization [place] Address [facility] [place] [address] Care Team Providers Name Role Phone Bebeto Roth MD Unavailable Astrid Rios PA-C Unavailable Keri Elias MD Primary Care Provider Unavailable Reason for Referral Diagnostic Imaging XR - Closed Specialty Diagnoses / Procedures Referred By Contact Refer red To Contact Diagnoses S/P spinal fusion Bebeto Roth MD Procedures XR Spine Complete [address] [place], [place] [address] Referral ID Status Reason Start Date Expiration Date Visits Requ ested Visits Authorized [id number] Closed 03/27/2017 03/27/2018 1 1 MANAGER Encounter Details Date Type Department Care Team Description 03/27/2017 Orders Only [facility] Orthopaedic Bebeto Roth S/P spi nal fusion Clinic MD Devan (Primary Dx) 9 [facility] SE [address] [place] [address] [phone] Social History Tobacco Use Types Packs/Day Years Used Date Smoking Tobacco: Never Smokeless Tobacco: Never Alcohol Use Standard Drinks/Week Comments No 0 (1 standard drink = 0.6 oz pure alcoho l) Sex Assigned at Date Recorded Not on file documented as of this encounter Plan of Treatment Not on filedocumented as of this encounter Results XR Spine Complete 2 Views (03/30/2017 12:40 PM SHOP MANAGER) Anatomical Region Laterality Modality Spine Computed Radiography Specimen (Source) Anatomical Location Collection Method / Collectio n Time Received Time / Laterality Volume Impressions 03/30/2017 1:17 PM SHOP MANAGER Impression: 1. Mild right convexed curvature of the main thoracic spine. 2. No ??global sagittal imbalance. 3. Weight bearing axis as detailed above . 4. Stable posterior instrumented fusion from T10 to L3 ALISHA POPE MD Narrative 03/30/2017 1:17 PM SHOP MANAGER EXAMINATION: XR SPINE COMPLETE 2 VW, XR [...] No substantial global coronal imbalance. Sagittal Vertical [place] (A vertical line drawn from the center [...] No substantial global coronal imbalance. Sagittal Vertical [place] (A vertical line drawn from the center [...] status documented in this encounter Care Teams Fabrication Welder Relationship Specialty Start Date End Date Keri Elias PCP - General Family Practice 03/12/15 9 MD Ira Glez, Bebeto Hartman MD Orthopedics 07/09/14 [facility] [place] [id number] [place] [address] Astrid Rios PA-C Physician Composite Science Teacher Physician Composite Science Teacher - 07/09/14 Surgical documented as of this encounter
--- OUTSIDE RECORDS SUMMARY | 2022-01-23 08:26 | XMS_ITS | Encounter Summary ---
:1980 Author Organization [place] Address [address] [facility] [place] [address] Care Team Providers Name Role Phone Bebeto Roth MD Unavailable Astrid Rios PA-C Unavailable Keri Elias MD Primary Care Provider Unavailable Encounter Details Date Type Department Care Team Description 09/29/2017 Anesthesia Event [facility] Preoperative WahrPatria MD [address] [employer] [address] [place] [address] Assessment Center Cameron Manjarrez APRN [facility] [address] [place] [address] [address] [facility] 5th [place] [address] Anesthesia Record Procedure Summary Procedure [...] Anesthesia Preprocedure Evaluation - Cameron Manjarrez APRN [facility] - 09/29/2017 10:14 AM CDT Anesthesia Evaluation [...] Screen: Neg Test Valid Only At: [facility] Specimen Expires: 10/02/2017 09/29/2017 12:11 Color Urine: Yellow Appearance Urine: Clear Glucose Urine: Negative Bilirubin Urine: Negative Ketones Urine: Negative Specific [employer] Urine: 1.013 pH Urine: 6.0 Protein Albumin Urine: Negative Urobilinogen mg/dL: 0.0 Nitrite Urine: Negative Blood Urine: Large (A) Leukocyte Esterase Urine: Negative Source: Midstream Urine WBC Urine: 1 RBC Urine: 3 (H) Squamous Epithelial /HPF Urine: 3 (H) Transitional Epi: <1 (A) Mucous Urine: Present (A) PAC Discussion and Assessment ASA Classification: 2 Case is suitable for: [place] Anesthetic techniques and relevant risks discussed: GA Invasive monitoring and risk discussed: Yes Types: Possibility and Risk of blood transfusion discussed: Yes NPO instructions given: Additional anesthetic preparation and risks discussed: Needs early admission to pre-op area: Other: PAC Resident/PRESIDING JUDGE Anesthesia Assessment: Azul Garg is a 37 [...] on filedocumented in this encounter Care Teams Test Driller Relationship Specialty Start Date End Date Madlon-Brittnee, Keri PCP - General Family Practice 03/12/15 9 MD Ira Glez David Wayne, MD Orthopedics 07/09/14 [facility] [address] Astrid Rios PA-C Physician Women'S Apparel Salesperson Physician Women'S Apparel Salesperson - 07/09/14 Surgical documented as of this encounter
--- OUTSIDE RECORDS SUMMARY | 2022-01-23 08:26 | XMS_ITS | Encounter Summary ---
:1980 Author Organization [place] Address [address] [facility] [place] [address] Care Team Providers Name Role Phone Bebeto Roth MD Unavailable Astrid Rios PA-C Unavailable Keri Elias MD Primary Care Provider Unavailable Encounter Details Date Type Department Care Team Description 09/29/2017 Orders Only [facility] Lab Preop general physical [address] [facility] [address] exam 1st Floor [place], [place] [phone] Social History Tobacco Use [...] 12:03 Preop general Resu lts for this [facility] physical exam procedure are in the results section. documented in this encounter Results (ABNORMAL) UA reflex to Microscopic and Culture (09/29/2017 12:11 PM [facility] Method Time Signature Color Urine Yellow 09/29/2017 [facility] 12:41 PM [facility] Appearance Urine Clear 09/29/2017 [facility] 12:41 PM [facility] Glucose Urine Negative NEG^Negat 09/29/2017 [facility] [place] mg/dL 12:41 PM [facility] Bilirubin Urine Negative NEG^Negat 09/29/2017 [facility] [place] 12:41 PM [facility] Ketones Urine Negative NEG^Negat 09/29/2017 [facility] [place] mg/dL 12:41 PM [facility] Specific [place] 1.013 1.003 - 09/29/2017 [facility] Urine 1.035 12:41 PM [facility] Blood Urine Large (A) NEG^Negat 09/29/2017 [facility] [place] 12:41 PM [facility] pH Urine 6.0 5.0 - 7.0 09/29/2017 [facility] pH 12:41 [facility] Protein Albumin Negative NEG^Negat 09/29/2017 [facility] Urine franco mg/dL 12:41 PM [facility] Urobilinogen 0.0 0.0 - 2.0 09/29/2017 [facility] mg/dL mg/dL 12:41 PM [facility] Nitrite Urine Negative NEG^Negat 09/29/2017 [facility] [place]anco 12:41 PM [facility] Leukocyte Negative NEG^Negat 09/29/2017 [facility] Esterase Urine franco 12:41 [facility] Source Midstream 09/29/2017 [facility] Urine 12:16 PM [facility] RBC Urine 3 (H) 0 - 2 09/29/2017 [facility] /HPF 12:41 PM [facility] WBC Urine 1 0 - 5 09/29/2017 [facility] /HPF 12:41 PM [facility] Squamous 3 (H) 0 - 1 09/29/2017 [facility] Epithelial /HPF /HPF 12:41 PM [place] Urine [facility] Transitional Epi <1 (A) FEW^Few 09/29/2017 [facility] F /HPF 12:41 PM [facility] Mucous Urine Present (A) NEG^Negat 09/29/2017 [facility] [place] /LPF 12:41 PM [facility] Specimen (Source) Anatomical Collection Method Collection Time Re ceived Time Location / / Volume Laterality Examination of 09/29/2017 12:11 8 midstream urine PM CDT 12:16 PM CDT specimen (procedure) Cameron Manjarrez APRN SECURITIES VAULT SUPERVISOR LAB - URINE ORDERABLES Performing Organization Address City/[facility]/ZIP Code Phon e Number [address] [address] [facility] Hemoglobin A1c (09/29/2017 12:03 PM CDT) P athologist Signature Hemoglobin A1C 5.3 0 - 5.6 % 09/29/2017 [facility] 12:48 PM CDT [facility] Comment: Normal <5.7% Prediabetes 5.7-6.4% ??Diab etes 6.5% or higher - adopted from ADA consensus guidelines. Specimen Anatomical Collection Method Collection Time Receive d Time (Source) Location / / Volume Laterality Blood specimen 09/29/2017 12:03 8 (specimen) PM CDT 12:04 PM CDT Cameron Manjarrez APRN SECURITIES VAULT SUPERVISOR LAB - BLOOD ORDERABLES Performing Organization Address City/State/ZIP Code Phon e Number [address] [address] [facility] INR (09/29/2017 12:03 PM CDT) P athologist Signature INR 1.02 0.86 - 1.14 09/29/2017 [facility] 12:28 PM CDT [facility] Specimen Anatomical Collection Method Collection Time Receive d Time (Source) Location / / Volume Laterality Blood specimen 09/29/2017 12:03 8 (specimen) PM CDT 12:04 PM CDT Cameron Manjarrez APRN SECURITIES VAULT SUPERVISOR LAB - BLOOD ORDERABLES Performing Organization Address City/[facility]/ZIP Code Phon e Number [address] [address] [facility] (ABNORMAL) CBC with platelets (09/29/2017 12:03 PM CDT) [facility] gist Method Time Signature WBC 4.8 4.0 - 11.0 09/29/2017 [facility] 10e9/L 12:18 PM CDT [facility] RBC Count 4.87 3.8 - 5.2 09/29/2017 [facility] 10e12/L 12:18 PM CDT [facility] Hemoglobin 12.5 11.7 - 09/29/2017 [facility] 15.7 g/dL 12:18 PM CDT [facility] Hematocrit 39.4 35.0 - 09/29/2017 [facility] 47.0 % 12:18 PM CDT [facility] MCV 81 78 - 100 09/29/2017 [facility] fl 12:18 PM CDT [facility] MCH 25.7 (L) 26.5 - 09/29/2017 [facility] 33.0 pg 12:18 PM CDT [facility] MCHC 31.7 31.5 - 09/29/2017 [facility] 36.5 g/dL 12:18 PM CDT [facility] RDW 13.8 10.0 - 09/29/2017 [facility] 15.0 % 12:18 PM CDT [facility] Platelet Count 332 150 - 450 09/29/2017 [facility] 10e9/L 12:18 PM CDT [facility] Specimen Anatomical Collection Method Collection Time Receive d Time (Source) Location / / Volume Laterality Blood specimen 09/29/2017 12:03 8 (specimen) PM CDT 12:04 PM CDT Cameron Manjarrez APRN SECURITIES VAULT SUPERVISOR LAB - BLOOD ORDERABLES Performing Organization Address City/[facility] Code Phon e Number [address] [address] [facility] Basic metabolic panel (09/29/2017 12:03 PM CDT) P athologist Signature Sodium 141 133 - 144 09/29/2017 [facility] mmol/L 12:40 PM CDT [facility] Potassium 3.6 3.4 - 5.3 09/29/2017 [facility] mmol/L 12:40 PM CDT [facility] Chloride 106 94 - 109 09/29/2017 [facility] mmol/L 12:40 PM CDT [facility] Carbon Dioxide 28 20 - 32 09/29/2017 [facility] mmol/L 12:40 PM CDT [facility] Anion Gap 7 3 - 14 09/29/2017 [facility] mmol/L 12:40 PM CDT [facility] Glucose 90 70 - 99 09/29/2017 [facility] mg/dL 12:40 PM CDT [facility] Urea Nitrogen 12 7 - 30 09/29/2017 [facility] mg/dL 12:40 PM CDT [facility] Creatinine 0.85 0.52 - 09/29/2017 [facility] 1.04 mg/dL 12:40 PM CDT [facility] GFR Estimate 76 >60 09/29/2017 [facility] mL/min/1.7 12:[address] PM [address] Comment: Non GFR Calc GFR Estimate If >90 >60 mL/min/1.7m2 09/29/2017 12:40 PM [facility] Black T [facility] Comment: GFR Calc Calcium 8.8 8.5 - 10.1 mg/dL 09/29/2017 12:40 PM CDT [facility] Specimen Anatomical Collection Method Collection Time Receive d Time (Source) Location / / Volume Laterality Blood specimen 09/29/2017 12:03 8 (specimen) PM CDT 12:04 PM CDT Cameron Manjarrez APRN SECURITIES VAULT SUPERVISOR LAB - BLOOD ORDERABLES Performing Organization Address City/State/ZIP Code Phon e Number [place] [phone] [facility] ABO/Rh type and screen (09/29/2017 12:03 PM CDT) Patholo gist Method Time Signature ABO O 09/29/2017 [facility] 1:31 PM CDT [facility] RH(D) Pos [facility] Antibody Neg 09/29/2017 [facility] Screen 1:31 PM CDT [facility] Test Valid [facility] 09/29/2017 [facility] 12:46 PM CDT [facility] Specimen 10/26/2017 10/23/2017 [facility] Expires 6:57 AM CDT [facility] Blood Bank Pre admission 09/29/2017 [facility] Comment form received 4:03 PM CDT [facility] 09/29/17 for [facility] 10/23/17. AA Specimen Anatomical Collection Method Collection Time Receive d Time (Source) Location / / Volume Laterality Blood specimen 09/29/2017 12:03 8 (specimen) PM CDT 12:04 PM CDT Cameron Manjarrez APRN SECURITIES VAULT SUPERVISOR LAB - BLOOD BANK TEST ORDER Performing Organization Address City/State/ZIP Code Phon e Number [facility] [address] [place] [address] [facility] [address] [place] [address] [facility] documented in this encounter Visit Diagnoses Diagnosis Preop general physical exam Other specified pre-operative examinatio n documented in this encounter Care Teams Dental Chair Assembler Relationship Specialty Start Date End Date Keri Elias PCP - General Family Practice 03/12/15 9 MD Ira Glez David Wayne, MD Orthopedics 07/09/[address] [place] [address] Astrid Rios PA-C Physician Leaf Sucker Operator Physician Leaf Sucker Operator - 07/09/14 Surgical documented as of this encounter
--- OUTSIDE RECORDS SUMMARY | 2022-01-23 08:26 | XMS_ITS | Encounter Summary ---
:1980 Author Organization [place] Address [address] [facility] [address] Care Team Providers Name Role Phone Bebeto [...] initial prescr iption of contraceptive pills [address], [address] [place] [address] Social History Tobacco Use Types Packs/Day Years Used Date Smoking Tobacco: Never Smokeless Tobacco: Never Alcohol Use Standard Drinks/Week Comments No 0 (1 standard drink = 0.6 oz pure alcoho l) Sex Assigned at Date Recorded Not on file documented as of this encounter Last Filed Vital Signs Vital Sign Reading Time Taken Comments Blood Pressure 112/83 04/12/2017 11:05 AM PRINCIPAL STATISTICAL SCIENTIST Pulse 94 04/12/2017 11:05 AM PRINCIPAL STATISTICAL SCIENTIST Temperature - - Respiratory Rate 16 04/12/2017 11:05 AM PRINCIPAL STATISTICAL SCIENTIST Oxygen Saturation 98% 04/12/2017 11:05 AM PRINCIPAL STATISTICAL SCIENTIST Inhaled Oxygen Concentration - - Weight 69.8 kg (153 lb 12.8 oz) 04/12/2017 11:05 AM PRINCIPAL STATISTICAL SCIENTIST Height - - Body Mass Index 27.03 03/30/2017 12:31 PM PRINCIPAL STATISTICAL SCIENTIST documented in this encounter Progress Notes Keri [...] spent in counseling about symptoms and plan. CIPAL STATISTICAL SCIENTIST documented in this encounter Plan of Treatment Not on filedocumented as of this encounter Procedures Procedure Name Priority Date/Time Associated Diagnosis Comme nts HEMOGLOBIN (HGB) Routine 04/12/2017 11:46 Iron deficiency Resu lts for this (LABDAQ) AM PRINCIPAL STATISTICAL SCIENTIST anemia, unspecified procedur e are in iron deficiency the results anemia type section. documented in this encounter Results Hemoglobin (HGB) (LabDAQ) (04/12/2017 11:46 AM PRINCIPAL STATISTICAL SCIENTIST) P athologist Signature Hemoglobin 11.8 11.7 - 15.7 [facility] g/dL MEDICINE LAB[facility]Q Specimen Anatomical Collection Method Collection Time Receive d Time (Source) Location / / Volume Laterality Blood specimen CAPILLARY BLOOD / 04/12/2017 11:46 03/17 (specimen) Unknown AM PRINCIPAL STATISTICAL SCIENTIST 11:48 AM PRINCIPAL STATISTICAL SCIENTIST Keri Elias MD LAB - LABDAQ Performing Organization Address City/State/ZIP Code Phon e Number [facility] [address] [place], [place] [address] [facility] documented in this encounter Visit Diagnoses Diagnosis Iron deficiency anemia, unspecified iron deficiency anemia type - Primary Encounter for initial prescription of co ntraceptive pills General counseling for prescription of o ral contraceptives documented in this encounter Care Teams Family Development Extension Specialist Relationship Specialty Start Date End Date Keri Elias PCP - General Family Practice 03/12/15 9 MD Ira Glez David Wayne, MD Orthopedics 07/09/[address] [facility] [facility] [address] [place] [address] Astrid Rios PA-C Physician Agricultural Engineering Technicians Physician Agricultural Engineering Technicians - 07/09/14 Surgical documented as of this encounter
--- OUTSIDE RECORDS SUMMARY | 2022-01-23 08:26 | XMS_ITS | Encounter Summary ---
:1980 Author Organization [place] Address [facility]0 [facility] [place] [address] Care Team Providers Name Role Phone Bebeto Roth MD Unavailable Astrid Rios PA-C Unavailable Keri Elias MD Primary Care Provider Unavailable Reason for Visit Diagnostic Imaging XR - Closed Specialty Diagnoses / Procedures Referred By Contact Refer red To Contact Diagnoses S/P spinal fusion Bebeto Roth MD Procedures XR Spine Complete 2 Views [address] [place], [place] [address] Referral ID Status Reason Start Date Expiration Date Visits Requ ested Visits Authorized [id number] Closed 06/28/2017 06/28/2018 1 1 Encounter Details Date Type Department Care Team Description 06/29/2017 Radiant Appointment [facility] Imaging Bebeto Roth S/P spinal fusion Center Farhana MD Devan 9 [facility] SE [address] 1st [address] [place] [address] [phone] Social History Tobacco Use Types Packs/Day Years [...] No substantial global coronal imbalance. Sagittal Vertical [place] (A vertical line drawn from the center [...] No substantial global coronal imbalance. Sagittal Vertical [place] (A vertical line drawn from the center [...] status documented in this encounter Care Teams Fiber Glass Worker Relationship Specialty Start Date End Date MeghaAlexa Tysonne PCP - General Family Practice 03/12/15 9 MD Ira Glez David Wayne, MD Orthopedics 07/09/[address] [place] [address] Astrid Rios PA-C Physician Patternmaker Apprentice Wood Physician Patternmaker Apprentice Wood - 07/09/14 Surgical documented as of this encounter
--- OUTSIDE RECORDS SUMMARY | 2022-01-23 08:26 | XMS_ITS | Encounter Summary ---
:1980 Author Organization [place] Address [address] [facility] [place] [address] Care Team Providers Name Role Phone Bebeto Roth MD Unavailable Astrid Rios PA-C Unavailable Keri Elias MD Primary Care Provider Unavailable Reason for Visit Reason Onset Date Comments Schedule Surgery 07/20/2017 Dr. Roth Encounter Details Date Type Department Care Team Description 07/20/2017 Telephone [facility] Orthopaedic Bebeto Roth Surgery (MD Ira Gardner) [address] [place] [id number] Social History Tobacco Use Types Packs/Day Years [...] Patient has been scheduled for 10/24/17 at [place]. She will see PAC for her pre-op H&P on 09/29/17. documented in this encounter Plan of Treatment Not on filedocumented as of this encounter Visit Diagnoses Not on filedocumented in this encounter Care Teams Blanching Machine Operator Relationship Specialty Start Date End Date Keri Elias PCP - General Family Practice 03/12/15 9 MD Ira Glez David Wayne, MD Orthopedics 07/09/[address] [address] Astrid Rios PA-C Physician Cook Short Order Physician Cook Short Order - 07/09/14 Surgical documented as of this encounter
--- OUTSIDE RECORDS SUMMARY | 2022-01-23 08:26 | XMS_ITS | Encounter Summary ---
:1980 Author Organization [place] Address [address] [place] [address] Care Team Providers Name Role Phone Bebeto Roth MD Unavailable Astrid Rios PA-C Unavailable Keri Elias MD Primary Care Provider Unavailable Reason for Referral - Closed Specialty Diagnoses / Procedures Referred By Contact Refer red To Contact Diagnoses Adolescent idiopathic scoliosis of thoracolumbar region S/P spinal fusion Other kyphosis of thoracic region Bebeto Roth MD [address] [place], [place] [address] Referral ID Status Reason Start Date Expiration Date Visits Requ ested Visits Authorized [id number] Closed 06/29/2017 06/29/2018 1 1 Reason for Visit Reason Comments RECHECK follow up mid back fusion. d iscuss surgery. DOS 10-12-2009 PSF [id number] Encounter Details Date Type Department Care Team Description 06/29/2017 Office Visit [facility] Orthopaedic Bebeto Roth [facility] ent idiopathic scoliosis of thoracolumbar region (Primary Dx); Clinic MD Devan S/P spinal fusion; 9 [facility] SE [address] Other kyphosis of thoracic r egion 4th [address] [place] [address] [phone] Social History Tobacco Use Types Packs/Day Years [...] MD: Keri Elias. MD: Self Referred ?? Delinquent Account Clerk? No ?? 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 Yes. 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 ?? Date of injury: None Type of [...] (willing/able to accept information): Yes Any cultural factors/baptism beliefs that may influence understanding or compliance? [...] Referral Routine Adolescent idiopathic Ordered: 06/29/2017 (For [facility] Only) scoliosis of thoracolumba r region S/P spinal fusio n Other kyphosis of thoracic region documented as of this encounter Visit Diagnoses Diagnosis Adolescent idiopathic scoliosis of thora columbar region - Primary Scoliosis (and kyphoscoliosis), idiopath ic S/P spinal fusion Arthrodesis status Other kyphosis of thoracic region documented in this encounter Care Teams Welder Production Line Arc Relationship Specialty Start Date End Date Keri Elias PCP - General Family Practice 03/12/15 9 MD Ira Glez David Wayne, MD Orthopedics 07/09/14 [facility] [facility] [address] [place] [address] Astrid Rios PA-C Physician Pond Tender Physician Pond Tender - 07/09/14 Surgical documented as of this encounter
--- OUTSIDE RECORDS SUMMARY | 2022-01-23 08:26 | XMS_ITS | Encounter Summary ---
:1980 Author Organization [place] Address [facility]0 [facility] [place] [address] Care Team Providers Name Role Phone Bebeto Roth MD Unavailable Astrid Rios PA-C Unavailable Keri Elias MD Primary Care Provider Unavailable Reason for Visit Reason Comments UTI Encounter Details Date Type Department Care Team Description 07/05/2017 Office Visit [facility] Lakisha Cantu, Bladder in fection (Primary Dx); Medicine Clinic DO Environmental allergies; [address] [address] [place], [place] [phone] [address] Social History Tobacco Use Types Packs/Day Years [...] (UA) ([facility]) Result Value Ref Range Specific [place] Urine 1.020 1.005 - 1.030 pH Urine [...] urine culture. - Urinalysis, Micro If (UA) ([facility]) - cephALEXin (KEFLEX) 500 MG capsule; Take 1 capsule (500 mg) by mouth 2 times daily - Urine Culture Aerobic Bacterial Environmental allergies - fluticasone (FLONASE) 50 MCG/ACT spray; [place] 1-2 sprays into both nostrils daily Dermatitis [...] Test Analysis Performed At [facility] gist Range Method Time Signature Specimen Midstream Urine INFECTIOUS Description DISEASE DIAGNOSTIC LABORATORY Special Specimen 07/05/2017 [facility] received in 4:48 PM CDT [facility] preservative [facility] Culture Micro No growth 07/06/2017 INFECTIOUS 10:09 PM DISEASE CDT DIAGNOSTIC LABORATORY Specimen (Source) Anatomical Collection Method Collection Time Re ceived Time Location / / Volume Laterality Examination of 07/05/2017 12:58 8 1:02 midstream urine PM CDT PM CDT specimen (procedure) Lakisha Cantu DO LAB - MICRO GENERAL ORDERABL ES Performing Organization Address City/State/ZIP Code Phon e Number INFECTIOUS DISEASES [address] [place] [address] DIAGNOSTIC LABORATORY, [facility] INFECTIOUS DISEASE [address] [place] [address], [facility] DIAGNOSTIC LABORATORY [address] [address], [facility] (ABNORMAL) Urinalysis, Micro If (UA) ([facility]) (07/05/2017 9:39 AM CDT) [facility] gist Method Time Signature Specific [place] 1.020 1.005 - [place] Urine 1.030 FAMILY [...] Number [facility] [address] [place] [phone] [facility] documented in this encounter Visit Diagnoses Diagnosis Bladder infection - Primary Cystitis, unspecified Environmental allergies Allergic rhinitis, cause unspecified Dermatitis Contact dermatitis and other eczema, due to unspecified cause documented in this encounter Care Teams Supervising Floorperson Relationship Specialty Start Date End Date Keri Elias PCP - General Family Practice 03/12/15 9 MD Ira Glez [place] Wayne, MD Orthopedics 07/09/14 [facility] [place] [address] Astrid Rios PA-C Physician Ammunition And Explosives Handler Physician Ammunition And Explosives Handler - 07/09/14 Surgical documented as of this encounter
--- OUTSIDE RECORDS SUMMARY | 2022-01-23 08:26 | XMS_ITS | Encounter Summary ---
:1980 Author Organization [place] Address [address] [facility] [place] [address] Care Team Providers Name Role Phone Bebeto Roth MD Unavailable Astrid Rios PA-C Unavailable Keri Elias MD Primary Care Provider Unavailable Reason for Visit Auth/Cert Specialty Diagnoses / Procedures Referred By Contact Refer red To Contact Obstetrics Diagnoses Maternity*VINCENT 03/08/2017/Labor Encounter for triage in patient Labor and delivery, indication for care (normal spontaneous vaginal delivery) [facility] [place] [place] [address] Phone: Referral ID Status Reason Start Date Expiration Date Visits Requ ested Visits Authorized [id number] 1 1 Encounter Details Date Type Department Care Team Description 03/05/2017 Anesthesia Event [facility] Mauricio Hodges es Birthplace MD Flex [address] [id number] [facility] [address] [place] [address] (Wo rk) Anesthesia Record Procedure [...] of intravascular, subdural or intrathecal injection: Yes H WINDER Anesthesia Procedure Notes - Taye Hodges MD - 03/05/2017 9:27 PM [facility] Associated Order(s): ANE UU EPIDURAL BLOCK Epidural [...] what appeared to be a normal space. H WINDER Anesthesia Preprocedure Evaluation - Taye Hodges MD [...] risks, benefits and alternatives discussed with: Patient.. H WINDER documented in this encounter Plan of Treatment Not on filedocumented as of this encounter Procedures Procedure Name Priority Date/Time Associated Diagnosis Comme nts ANE EPIDURAL BLOCK Routine 03/06/2017 12:36 AM [facility] Procedure Note - Sapna Hodges MD - [...] ANE EPIDURAL BLOCK Routine 03/05/2017 9:29 PM [facility] Procedure Note - Sapna Hodges MD - [...] (MARCAINE) 0.125 % Given 03/05/2017 9:22 PM [facility] 5 mL s injection (diluted from stock concentration by MD or ASSEMBLER SKYLIGHTS) EPIDURAL, PRN, Starting on 03/05/17 at 9, Anesthesia Intra-op Given 03/05/2017 9:19 PM [facility] 5 mLs lidocaine-EPINEPHrine 1.5 %-[id number] inj ection Given 03/05/2017 9:18 PM [facility] 3 mLs EPIDURAL, PRN, Starting on 03/05/17 at 8, Anesthesia Intra-op documented in this encounter Care Teams Manager Labor Delivery Relationship Specialty Start Date End Date Keri Elias PCP - General Family Practice 03/12/15 9 MD Ira Glez David Wayne, MD Orthopedics 07/09/14 [facility] [place] [address] Astrid Rios PA-C Physician Ticket Manager Physician Ticket Manager - 07/09/14 Surgical documented as of this encounter
--- OUTSIDE RECORDS SUMMARY | 2022-01-23 08:26 | XMS_ITS | Encounter Summary ---
:1980 Author Organization [place] Address [address] [facility] [place] [address] Care Team Providers Name Role Phone Bebeto Roth MD Unavailable Astrid Rios PA-C Unavailable Keri Elias MD Primary Care Provider Unavailable Francisco Metz MD Primary Care Provider [phone] Francisco Metz MD Unavailable [phone] Kenton Katz MD Unavailable Unavailable Karen Veliz DO Primary Care Provider Kenton Katz MD Unavailable Unavailable Karen Veliz DO Unavailable Reason for Visit Reason Onset Date Comments No Show 03/27/2017 RTN No Show #3 Encounter Details Date Type Department Care Team Description 03/27/2017 Telephone [facility] Keri Elias No Show (RTN No Show Medicine Clinic MD [place] #3) [address], [address] [place], [place] [address] Social History Tobacco Use Types Packs/Day Years [...] the virtual schedule to meet with you. H MECHANIC documented in this encounter Plan of Treatment Not on filedocumented as of this encounter Visit Diagnoses Not on filedocumented in this encounter Care Teams Billing Clinician Relationship Specialty Start Date End Date Keri Elias PCP - General Family Practice 03/12/15 9 MD Isaías Glez Mitchell PCP - General Family Practice 11/14/18 04/02/20 MD Stevie Karen Veliz, PCP - General Family Medicine 04/03/202019 [place] [address] Bebeto Roth MD Orthopedics 07/09/14 [facility] [place] [address] Astrid Rios PA-C Physician Inside Sales Person Physician Inside Sales Person - 07/09/14 Surgical Francisco Metz Assigned PCP 07/04/19 02/01/20 MD Stevie [place] [id number] [place] [address] [place] [address] Kenton Katz Assigned PCP 02/02/20 08/27/20 MD Feliberto NO INFO AVAILABLE Kenton Katz Assigned Endocrinology 08/28/20 07/23/21 MD Feliberto Provider NO INFO AVAILABLE Karen Veliz, Assigned PCP 08/28/202019 [place] [address] documented as of this encounter
--- OUTSIDE RECORDS SUMMARY | 2022-01-23 08:26 | XMS_ITS | Encounter Summary ---
:1980 Author Organization [place] Address [facility] [facility] [place] [address] Care Team Providers Name Role Phone Bebeto Roth MD Unavailable Astrid Rios PA-C Unavailable Keri Elias MD Primary Care Provider Unavailable Reason for Visit Diagnostic Imaging XR - Closed Specialty Diagnoses / Procedures Referred By Contact Refer red To Contact Diagnoses S/P spinal fusion Bebeto Roth MD Procedures XR Leg Length Evaluation [address] [place], [place] [address] Referral ID Status Reason Start Date Expiration Date Visits Requ ested Visits Authorized [id number] Closed 06/29/2017 06/29/2018 1 1 Encounter Details Date Type Department Care Team Description 06/29/2017 Radiant Appointment [facility] Imaging Bebeto Roth S/P spinal fusion Center Farhana MD Devan 9 [facility] [address] [place] [address] [phone] Social History Tobacco Use Types Packs/Day Years [...] No substantial global coronal imbalance. Sagittal Vertical [place] (A vertical line drawn from the center [...] No substantial global coronal imbalance. Sagittal Vertical [place] (A vertical line drawn from the center [...] status documented in this encounter Care Teams Gusset Maker Relationship Specialty Start Date End Date MeghaAlexa Tysonne PCP - General Family Practice 03/12/15 9 MD Ira Glez David Wayne, MD Orthopedics 07/09/[address] [address] Astrid Rios PA-C Physician Inspector Materials And Processes Physician Inspector Materials And Processes - 07/09/14 Surgical documented as of this encounter
--- OUTSIDE RECORDS SUMMARY | 2022-01-23 08:26 | XMS_ITS | Encounter Summary ---
:1980 Author Organization [facility] Address [address] [place] [address]. [place] [address] Care Team Providers Name Role Phone Bebeto Roth MD Unavailable Astrid Rios PA-C Unavailable Keri Elias MD Primary Care Provider Unavailable Reason for Visit Reason Comments Laboring Auth/Cert Specialty Diagnoses / Procedures Referred By Contact Refer red To Contact Obstetrics Diagnoses Maternity*VINCENT 03/08/2017/Labor Encounter for triage in patient Labor and delivery, indication for care (normal spontaneous vaginal delivery) [address] [address] Phone: Referral ID Status Reason Start Date Expiration Date Visits Requ ested Visits Authorized [id number] 1 1 Encounter Details Date Type Department Care Team Description 03/05/2017 - Hospital Encounter [facility] Keri Elias MD (normal spontaneous vaginal delivery) (Primary Dx); 03/07/2017 [facility] Birthplace Lakisha Cantu DO [facility] [address] [place] [address] test positive [address] [place] [id number] Social History Tobacco Use Types Packs/Day Years Used Date Smoking Tobacco: Never Smokeless Tobacco: Never Alcohol Use Standard Drinks/Week Comments No 0 (1 standard drink = 0.6 oz pure alcoho l) Sex Assigned at Date Recorded Not on file documented as of this encounter Last Filed Vital Signs Vital Sign Reading Time Taken Comments Blood Pressure 105/76 03/07/2017 7:58 AM ACETYLENE PLANT OPERATOR Pulse 109 03/05/2017 5:34 PM ACETYLENE PLANT OPERATOR Temperature 36.6 ??C (97.8 ??F) 03/07/2017 7:58 AM ACETYLENE PLANT OPERATOR Respiratory Rate 18 03/07/2017 7:58 AM ACETYLENE PLANT OPERATOR Oxygen Saturation 97% 03/06/2017 11:30 AM ACETYLENE PLANT OPERATOR Inhaled Oxygen Concentration - - Weight - - Height - - Body Mass Index - - documented in this encounter Discharge Summaries Lakisha Cantu DO - 03/07/2017 9:50 AM CST Images from the original note were not included. [facility] Post- Discharge Summary Azul Tellez Age: [age] year old Date of : 1980 Date of Admission: 03/05/2017 Date of Discharge:: 03/07/2017 Admitting Physician: Keri Elias MD Discharge Physician: Lakisha Cantu DO Home clinic: [facility] Admission Diagnoses: Maternity*VINCENT 03/08/2017/Labor Encounter for triage in patient Labor and delivery, indication for care (normal spontaneous vaginal delivery) Discharge Diagnosis: Normal spontaneous vaginal delivery Intrauterine at 39+5 weeks gestation Patient Active Problem List Diagnosis ??? Adolescent idiopathic scoliosis ??? Health Fdc ??? Acne vulgaris ??? Anxiety ??? Congenital [...] time ??? fluticasone (FLONASE) 50 MCG/ACT spray Bristol 1-2 sprays into both nostrils daily 16 [...] Frequent UTI fluticasone (FLONASE) 50 MCG/ACT spray [place] 1-2 sprays into both nostrils daily Qty: [...] Disposition: Discharged to home Lakisha Cantu DO YLENE PLANT OPERATOR documented in this encounter Discharge Instructions [...] hands. Keep your nails clean and short. YLENE PLANT OPERATOR documented in this encounter Medications at [...] Abnormal maternal glucose tolerance, antepartum fluticasone (FLONASE) Bristol 1-2 sprays into 16 g 3 07/05/2017 [...] Diagnosis ??? Adolescent idiopathic scoliosis ??? Health Fdc ??? Acne vulgaris ??? Anxiety ??? Congenital [...] movement control. DO Kenia Rowanlaila [facility] YLENE PLANT OPERATOR Keri Elisa MD - 03/05/2017 6:15 PM CST Kenia'laila [...] Diagnosis ??? Adolescent idiopathic scoliosis ??? Health Fdc ??? Acne vulgaris ??? Anxiety ??? Congenital [...] delivery, considering NO gas. Gin Deutsch DO [facility] Attestation: This patient has been seen and evaluated by me, Keri Elias on 03/05/2017. I saw and discussed the case with the primary resident the care team. I agree with the findings and plan in this note. I have reviewed today's vital signs, medications, laboratory results. Keri Elias MD [facility] YLENE PLANT OPERATOR documented in this encounter Miscellaneous Notes L&D Delivery Note - Keri Elias MD - 03/07/2017 1:44 PM ACETYLENE PLANT OPERATOR OB Vaginal Delivery Note Azul Tellez Age: [age] year old Date of : 1980 GA: 39w5d GP: Labor Complications: None EBL: mL QBL: 105 mL Delivery Type: Vaginal, Spontaneous Delivery ROM to Delivery Time: 5h 02m [place] Weight: 3.65 kg (8 lb 0.8 oz) [...] Normal 1:1 continuous labor support provided by?: carpenters supervisor/Placenta Date and Time Delivery Date: 03/06/17 Delivery Time: 12:52 AM Placenta Date/Time: 03/06/2017 12:58 AM Oxytocin given at the time of delivery: after delivery of baby Vaginal Counts Initial count performed by 2 team members: Two Team Members Jada Gonzalez RN Columbia Suture Columbia Sponges Instruments Initial counts 2 5 Added [...] present?: Neg Delivery (Maternal) (Provider to Complete) ([id number]) Episiotomy: None Perineal lacerations: 1st Repaired?: No Labial laceration: right Repaired?: No Vaginal laceration?: No Cervical laceration?: No Mother's Information Mother: Azul Mcclellan #[id number] Start of Mother's Information IO Blood Loss 03/05/17 1730 - 03/07/17 0052 Mom's I/O Activity End of Mother's Information Mother: Azul Mcclellan #[id number] Delivery - Provider to Complete ([id number]) Delivering clinician: KERI ELIAS Attempted Delivery Types [...] Occiput Anterior DO Kenia Rowan [facility] Attestation: This patient has been seen and evaluated by me, Keri Elias on 03/06/17. I saw and discussed the case with the primary resident the care team. I agree with the findings and plan in this note. I have reviewed today's vital signs, medications, laboratory results. I was present for the entire delivery. K[facility] Aquino [facility] YLENE PLANT OPERATOR Plan of Care - Anuja Martins RN [...] wereanswered. Discharge to home today with baby. YLENE PLANT OPERATOR Plan of Care - Collin Oh [...] Looking forward to discharge to home today. YLENE PLANT OPERATOR Plan of Care - Amelia Martinez RN - 03/07/2017 7:50 AM CST Referral made to [facility] for early dc. YLENE PLANT OPERATOR Plan of Care - Anna Morgan [...] person in room. Continue plan of care. YLENE PLANT OPERATOR Plan of Care - Deborah Sparks [...] present. Plan: continue with plan of care. YLENE PLANT OPERATOR Note - Jose Cummings RN - [...] will continue to call for help prn. YLENE PLANT OPERATOR Plan of Care - Apoorva Gold [...] new family booklet, safe sleep, feeding cues, [place] and pain management. See flow record. Response: Positive attachment behaviors observed with infant. Support persons Yohan present. Plan: continue plan of care. YLENE PLANT OPERATOR Provider Notification - Apoorva Gold RN - 03/06/2017 6:36 AM CST 03/06/17 0636 Provider Notification Provider Name/Title MitchellChuyBrittnee Method of Notification Electronic Page Request Evaluate-Remote Notification Reason Medication Request (Tums) Patient is requesting Tums for heartburn. Please order as soon as you can, thanks! YLENE PLANT OPERATOR Plan of Care - Apoorva Gold RN - 03/06/2017 6:09 AM CST Patient arrived to [facility] unit via wheelchair at 0330,with belongings, accompanied by spouse/ significant other, with in arms. Received report from Rebecca Regalado at 0300 over the phone and checked bands. Unit and room orientation completd. Call light given and within arms reach; no concerns present atthis time. Continue with plan of care. YLENE PLANT OPERATOR Plan of Care - Mary Lindsey RN - 03/06/2017 3:49 AM CST Data: Azul Tellez transferred to [facility] via wheelchair at 0330. Baby transferred via parent'sarms. Action: Receiving unit notified of transfer: Yes. Patient and family notified of room change. Reportgiven to KENNY Guerin at 0300. Belongings sent to receiving unit. Accompanied by Registered Nurse. Oriented patient to surroundings. Call light within reach. ID bands double-checked with receiving RN. Response: Patient tolerated transfer and is stable. YLENE PLANT OPERATOR Provider Notification - Mary Lindsey RN - 03/06/2017 2:23 AM CST 03/05/17 4890 Provider Notification Provider Name/Title MDA Method of Notification At Bedside Request Evaluate in Person Notification Reason Other (Comment) (replacing epidural) Pt. Uncomfortable, feels epidural isn't working. MDA in to assess. Epidural fell out. Second one placed. Continue to monitor. YLENE PLANT OPERATOR Plan of Care - Mary Lindsey [...] No repairs. Pitocinper protocol. Continue pp cares. YLENE PLANT OPERATOR Plan of Care - Yasmine Phillips [...] in for pt to help with relaxation. YLENE PLANT OPERATOR Provider Notification - Yasmine Phillips RN - 03/05/2017 10:44 PM CST 03/05/17 2225 Provider Notification Provider Name/Title MDA Method of Notification Phone Request Evaluate - Remote Notification Reason Status Update Discussed pt status post-epidural placement. Discussed how tape was coming off and placed tape on tokeep site stable. MDA ok with intervention. No further orders. YLENE PLANT OPERATOR Provider Notification - Yasmine Phillips RN - 03/05/2017 10:43 PM CST 03/05/17 2239 Provider Notification Provider Name/Title MDA Method of Notification Phone Request Evaluate - Remote Notification Reason Patient Request Discussed pt s/s with provider. No concerns at this time. Will continue to support and update provider as needed. YLENE PLANT OPERATOR Provider Notification - Yasmine Phillips RN - 03/05/2017 10:02 PM CST 03/05/17 2200 Provider Notification Provider Name/Title FP Resident Method of Notification In Department Request Evaluate in Person Notification Reason Status Update Strip reviewed intra-department. No further orders or concerns. YLENE PLANT OPERATOR Provider Notification - Yasmine Phillips RN - 03/05/2017 9:54 PM CST 03/05/17 2115 Provider Notification Provider Name/Title FP Resident Method of Notification At Bedside Request Evaluate in Person Notification Reason Status Update Strip reviewed at bedside with provider as a LD was seen. No further orders. Variability still moderate. YLENE PLANT OPERATOR Plan of Care - Lisa Peralta [...] Outcome: No Change Data: [facility] Reason for maternal/ assessment per [...] ambulatory, oriented to room and call light. YLENE PLANT OPERATOR documented in this encounter Plan of Treatment Not on filedocumented as of this encounter Procedures Procedure Name Priority Date/Time Associated Diagnosis Comme nts HEMOGLOBIN Routine 03/07/2017 7:07 AM Results f or this ACETYLENE PLANT OPERATOR procedure are i n the results section . PLATELET COUNT STAT 03/05/2017 6:28 PM Results for this ACETYLENE PLANT OPERATOR procedure are i n the results section . HEMOGLOBIN STAT 03/05/2017 6:28 PM Results f or this ACETYLENE PLANT OPERATOR procedure are i n the results section . ABO AND RH STAT 03/05/2017 6:28 PM Results f or this ACETYLENE PLANT OPERATOR procedure are i n the results section . documented in this encounter Results (ABNORMAL) Hemoglobin (03/07/2017 7:07 AM ACETYLENE PLANT OPERATOR) P athologist Signature Hemoglobin 9.0 (L) 11.7 - 15.7 03/07/2017 [facility] g/dL 7:24 AM ACETYLENE PLANT OPERATOR [facility] Specimen Anatomical Collection Method Collection Time Receive d Time (Source) Location / / Volume Laterality Blood specimen 03/07/2017 7:07 AM 018 7:11 (specimen) ACETYLENE PLANT OPERATOR AM ACETYLENE PLANT OPERATOR Keri Elias MD LAB - BLOOD ORDERABLES Performing Organization Address City/State/ZIP Code Phon e Number [address] [address] [facility] Platelet count (03/05/2017 6:28 PM ACETYLENE PLANT OPERATOR) P athologist Signature Platelet Count 281 150 - 450 03/05/2017 [facility] 10e9/L 6:35 PM ACETYLENE PLANT OPERATOR [facility] Specimen Anatomical Collection Method Collection Time Receive d Time (Source) Location / / Volume Laterality Blood specimen 03/05/2017 6:28 PM 018 6:30 (specimen) ACETYLENE PLANT OPERATOR PM ACETYLENE PLANT OPERATOR Keri Elias MD LAB - BLOOD ORDERABLES Performing Organization Address City/State/ZIP Code Phon e Number [address] [address] [facility] (ABNORMAL) Hemoglobin (03/05/2017 6:28 PM ACETYLENE PLANT OPERATOR) P athologist Signature Hemoglobin 10.2 (L) 11.7 - 03/05/2017 [facility] 15.7 g/dL 6:35 PM ACETYLENE PLANT OPERATOR [facility] Specimen Anatomical Collection Method Collection Time Receive d Time (Source) Location / / Volume Laterality Blood specimen 03/05/2017 6:28 PM 018 6:30 (specimen) ACETYLENE PLANT OPERATOR PM ACETYLENE PLANT OPERATOR Keri Elias MD LAB - BLOOD ORDERABLES Performing Organization Address City/State/ZIP Code Phon e Number [address] [address] [facility] ABO and Rh (03/05/2017 6:28 PM ACETYLENE PLANT OPERATOR) Patholo gist Method Time Signature ABO O 03/05/2017 [facility] 6:58 PM ACETYLENE PLANT OPERATOR [facility] RH(D) Pos [facility] Specimen 03/08/2017 03/05/2017 [facility] Expires 6:39 PM ACETYLENE PLANT OPERATOR [facility] Specimen Anatomical Collection Method Collection Time Receive d Time (Source) Location / / Volume Laterality Blood specimen 03/05/2017 6:28 PM 018 6:30 (specimen) ACETYLENE PLANT OPERATOR PM ACETYLENE PLANT OPERATOR Keri Elias MD LAB - BLOOD BANK TEST ORDER Performing Organization Address City/State/ZIP Code Phon e Number [facility] [address] [place] [address] [facility] documented in this encounter Visit [...] (TYLENOL) tablet 650 Given 03/07/2017 7:21 AM ACETYLENE PLANT OPERATOR 650 mg mg 650 mg, Oral, EVERY 4 HOURS PRN, mild pain, fever, greater than or equal to 38?? C /100.4?? F (oral) or 38.5?? C/ 101.4?? F (core)., Starting on Mon03/06/17 at 0129, Maximum acetaminophen dose from all sources = 75 mg/kg/day not to exceed 4 grams/day. Given 03/06/2017 11:45 PM ACETYLENE PLANT OPERATOR 650 mg Given 03/06/2017 7:28 PM ACETYLENE PLANT OPERATOR 650 mg calcium carbonate (TUMS) chewable tablet 500 Given 10:10 PM ACETYLENE PLANT OPERATOR 500 mg mg 500 mg, Oral, DAILY PRN, heartburn, Starting on Mon03/05/17 at 2147 calcium carbonate (TUMS) chewable tablet 500 mg 500 mg, Oral, DAILY PRN, heartburn, Starting on Mon at 0638 diphenhydrAMINE (BENADRYL) injection 25 mg Given 03/06/2017 4:10 AM ACETYLENE PLANT OPERATOR 25 mg 25 mg, Intravenous, EVERY 6 HOURS PRN, itching, sleep, anxiety, Administer over 1-2 Minutes, Starting on Mon03/06/17 at 0336, For ordered doses up to 50 mg, give IV Push undiluted. Give each 25mg over a minimum of 1 minute. Extend in non-emergency fentaNYL (PF) (SUBLIMAZE) injection 50-100 Given 03/05/2017 7:33 PM ACETYLENE PLANT OPERATOR 50 mcg mcg 50-100 mcg, Intravenous, [...] tablet 800 mg Given 03/06/2017 1:27 AM ACETYLENE PLANT OPERATOR 800 mg 800 mg, Oral, ONCE PRN, moderate pain (4-6), mild-moderate pain, Starting on 03/05/17 at 1810, For 1 dose, Available for administration after delivery. May give with acetaminophen. ibuprofen (ADVIL/MOTRIN) tablet 800 mg Given 03/07/2017 7:21 AM ACETYLENE PLANT OPERATOR 800 mg 800 mg, Oral, EVERY 6 HOURS PRN, other, cramping, Starting on 03/06/17 at 0129, Max dose: 3200 mg/day Given 03/06/2017 8:42 PM ACETYLENE PLANT OPERATOR 800 mg Given 03/06/2017 2:27 PM ACETYLENE PLANT OPERATOR 800 mg lactated ringers BOLUS 1,000 mL New Bag 03/05/2017 8:37 PM ACETYLENE PLANT OPERATOR 1,000 mLs Intravenous, 1,000 mL, ONCE PRN, IF patient to have epidural or intrathecal narcotics and NOT pre-eclamptic, Starting on Mon03/05/17 at 1810, For 1 dose, IV bolus 15-30 min prior to epidural, then IV fluids per labor orders lactated ringers BOLUS 500 mL New Bag 03/05/2017 6:17 PM ACETYLENE PLANT OPERATOR 500 mLs Intravenous, 500 mL, ONCE PRN, per policy for intrauterine resuscitation or uterine tachysystole, Starting on Mon03/05/17 at 1810, For 1 dose lactated ringers infusion New Bag 03/05/2017 11:53 PM ACETYLENE PLANT OPERATOR 125 mL/hr at 125 mL/hr, Intravenous, CONTINUOUS, Starting on Mon03/05/17 at 1830, Until Mon03/06/17 at 0129 Rate/Dose Verify 03/05/2017 8:27 PM ACETYLENE PLANT OPERATOR 125 mL/hr New 03/05/2017 7:20 PM ACETYLENE PLANT OPERATOR 125 mL/hr naphazoline-pheniramine (OPCON-A/VISINE A/NAPHCON A) ophthalmic solution 1 drop 1 drop, Ophthalmic, 4 TIMES DAILY PRN, d ry eyes, Starting on Mon03/06/17 at 0358 nitrous oxide/oxygen 50/50 blend Given 03/05/2017 6:45 PM ACETYLENE PLANT OPERATOR Inhalation, CONTINUOUS PRN, episodic analgesia, Starting [...] units in New Bag 03/06/2017 12:54 AM ACETYLENE PLANT OPERATOR 340 mL/hr 340 mL/hr 500 mL [...] mL/hr units in 500 mL 0.9% NaCl ACETYLENE PLANT OPERATOR infusion 100 mL/hr, Intravenous, CONTINUOUS, Starting [...] for loose stools. Given 03/06/2017 7:41 AM ACETYLENE PLANT OPERATOR 1 tablet senna-docusate (SENOKOT-S;PERICOLACE) 8. 6-50 MG per tablet 2 tablet 2 tablet, Oral, 2 TIMES DAILY PRN, const ipation, Starting on Mon03/06/17 at 0129, Hold for loose stools. documented in this encounter Active and Recently Administered Medications Times are shown in ACETYLENE PLANT OPERATOR. Scheduled Medication Order 03/05/2017 03/06/2017 03/07/2017 fentaNYL (SUBLIMAZE) 2 mcg/mL, bupivacai ne (MARCAINE) 0.125% in NS premix for PCEA (CANCELED) 2118 (New Bag by Other Clinician - Provider: Yasmine ulloa, KENNY) 104 (Stopped - Provider: Mary Lindsey RN) EPIDURAL, HERITAGE CONSULTANT, First dose on Mon03/05/17 at 2045, Absolutely [...] RN) 50-100 mcg, Intravenous, EVERY 1 HOUR [place] N, Starting 03/05/17 at 1848, other, desired [...] stools.
documented in this encounter Care Teams Front End Developer Designer Relationship Specialty Start Date End Date Keri Elias PCP - General Family Practice 03/12/15 9 MD Ira Glez David Wayne, MD Orthopedics 07/09/[address] [place] [id number] Astrid Rios PA-C Physician Product Support Analyst Physician Product Support Analyst - 07/09/14 Surgical documented as of this encounter
--- OUTSIDE RECORDS SUMMARY | 2022-01-23 08:26 | XMS_ITS | Encounter Summary ---
:1980 Author Organization [facility] Address [address] [facility] [place] [address] Care Team Providers Name Role Phone Bebeto Roth MD Unavailable Astrid Rios PA-C Unavailable Keri Elias MD Primary Care Provider Unavailable Reason for Visit Reason Comments Care Encounter Details Date Type Department Care Team Description 02/21/2017 Office Visit Narda Mcleod Keri Elias of [facility] MD [facility] , [address], [address] ([address]) [place], [place] [address] Social History Tobacco Use Types Packs/Day Years Used Date Smoking Tobacco: Never Smokeless Tobacco: Never Alcohol Use Standard Drinks/Week Comments No 0 (1 standard drink = 0.6 oz pure alcoho l) Sex Assigned at Date Recorded Not on file documented as of this encounter Last Filed Vital Signs Vital Sign Reading Time Taken Comments Blood Pressure 114/78 02/21/2017 7:51 AM SOUVENIR AND NOVELTY MAKER Pulse 93 02/21/2017 7:51 AM SOUVENIR AND NOVELTY MAKER Temperature 36.9 ??C (98.5 ??F) 02/21/2017 7:51 AM SOUVENIR AND NOVELTY MAKER Respiratory Rate 18 02/21/2017 7:51 AM SOUVENIR AND NOVELTY MAKER Oxygen Saturation 99% 02/21/2017 7:51 AM SOUVENIR AND NOVELTY MAKER Inhaled Oxygen Concentration - - Weight 80.3 kg (177 lb) 02/21/2017 7:51 AM SOUVENIR AND NOVELTY MAKER Height - - Body Mass Index 31.35 [...] with the final plan. Keri Elias MD ENIR AND NOVELTY MAKER documented in this encounter Plan of Treatment Not on filedocumented as of this encounter Visit Diagnoses Diagnosis Supervision of high risk , ante - Primary documented in this encounter Care Teams Ironworker Apprentice Relationship Specialty Start Date End Date Keri Elias PCP - General Family Practice 03/12/15 9 MD Ira Glez David Wayne, MD Orthopedics 07/09/[address] [place] [id number] Astrid Rios PA-C Physician Telecom Manager Physician Telecom Manager - 07/09/14 Surgical documented as of this encounter
--- OUTSIDE RECORDS SUMMARY | 2022-01-23 08:26 | XMS_ITS | Encounter Summary ---
:1980 Author Organization [facility] Address [address] [facility] [place] [address] Care Team Providers Name Role Phone Bebeto Roth MD Unavailable Astrid Rios PA-C Unavailable Keri Elias MD Primary Care Provider Unavailable Reason for Visit Reason Comments Care BALA. NO concerns Encounter Details Date Type Department Care Team Description 02/28/2017 Office Visit Narda Mcleod Keri Elias of [facility] MD [place] [facility] , [address], [address] ([address]) [place], [place] [address] Social History Tobacco Use Types Packs/Day Years Used Date Smoking Tobacco: Never Smokeless Tobacco: Never Alcohol Use Standard Drinks/Week Comments No 0 (1 standard drink = 0.6 oz pure alcoho l) Sex Assigned at Date Recorded Not on file documented as of this encounter Last Filed Vital Signs Vital Sign Reading Time Taken Comments Blood Pressure 111/77 02/28/2017 7:54 AM ENTRY LEVEL PROGRAMMER Pulse 96 02/28/2017 7:54 AM ENTRY LEVEL PROGRAMMER Temperature 36.4 ??C (97.5 ??F) 02/28/2017 7:54 AM ENTRY LEVEL PROGRAMMER Respiratory Rate 16 02/28/2017 7:54 AM ENTRY LEVEL PROGRAMMER Oxygen Saturation 100% 02/28/2017 7:54 AM ENTRY LEVEL PROGRAMMER Inhaled Oxygen Concentration - - Weight 79.9 kg (176 lb 3.2 oz) 02/28/2017 7:54 AM ENTRY LEVEL PROGRAMMER Height - - Body Mass Index 31.21 08/05/2016 8:14 AM CDT documented in this encounter Progress Notes Keir Elias MD - 02/28/2017 7:50 AM CST [...] with the final plan. Keri Elias MD Y LEVEL PROGRAMMER documented in this encounter Plan of Treatment Not on filedocumented as of this encounter Visit Diagnoses Diagnosis Supervision of high risk , ante - Primary documented in this encounter Care Teams Bronzer Relationship Specialty Start Date End Date Keri Elias PCP - General Family Practice 03/12/15 9 MD Ira Glez David Wayne, MD Orthopedics 07/09/[address] [place] [id number] Astrid Rios PA-C Physician Chief Operator Hydroformer Physician Chief Operator Hydroformer - 07/09/14 Surgical documented as of this encounter
--- OUTSIDE RECORDS SUMMARY | 2022-01-23 08:26 | XMS_ITS | Encounter Summary ---
:1980 Author Organization [place] Address [address] [facility] [place] [address] Care Team Providers Name Role Phone Bebeto Roth MD Unavailable Astrid Rios PA-C Unavailable Keri Elias MD Primary Care Provider Unavailable Reason for Visit Reason Comments Pre-Op Exam Encounter Details Date Type Department Care Team Description 09/29/2017 Office Visit [facility] Cameron [facility] general Assessment Center BLAYNE Ramirez PEARL RESTORER physical exam [address] [facility] [address] [facility] (Primary Dx) 5th [place], [place] [id number] Anesthesia Record Procedure Summary Procedure Name [...] this encounter H&P Notes Cameron Manjarrez APRN QUALITY IMPROVEMENT CONSULTANT - 09/29/2017 10:00 AM CDT Images from [...] Dr. Roth in treatment of scoliosis at [facility]. History is obtained from the patient. [...] morning ??? fluticasone (FLONASE) 50 MCG/ACT spray [place] 1-2 sprays into both nostrils daily (Patient takingdifferently: [place] 1-2 sprays into both nostrils as needed [...] Neg Test Valid Only At Latest Units: [facility] Specimen Expires Unknown 10/02/2017 Color Urine Unknown Yellow Appearance Urine Unknown Clear Glucose Urine Latest Ref Range: NEG^Negative mg/dL Negative Bilirubin Urine Latest Ref Range: NEG^Negative Negative Ketones Urine Latest Ref Range: NEG^Negative mg/dL Negative Specific [place] Urine Latest Ref Range: 1.003 - 1.035 [...] Dr Shaikh. BLAYNE Palomino Preoperative Assessment Center [facility] documented in this encounter Plan of Treatment Not on filedocumented as of this encounter Results (ABNORMAL) UA reflex to Microscopic and Culture (09/29/2017 12:11 PM CDT) [facility] Time Signature Color Urine Yellow 09/29/2017 [facility] 12:41 PM [facility] Appearance Urine Clear 09/29/2017 [facility] 12:41 PM [facility] Glucose Urine Negative NEG^Negat 09/29/2017 [facility] mg/dL 12:41 PM [facility] Bilirubin Urine Negative NEG^Negat 09/29/2017 [facility] [place] 12:41 PM [facility] Ketones Urine Negative NEG^Negat 09/29/2017 [facility] [place] mg/dL 12:41 PM [facility] Specific [place] 1.013 1.003 - 09/29/2017 [facility] Urine 1.035 12:41 PM [facility] Blood Urine Large (A) NEG^Negat 09/29/2017 [facility] [place] 12:41 PM [facility] pH Urine 6.0 5.0 - 7.0 09/29/2017 [facility] pH 12:41 PM [facility] Protein Albumin Negative NEG^Negat 09/29/2017 [facility] Urine franco mg/dL 12:41 PM [facility] Urobilinogen 0.0 0.0 - 2.0 09/29/2017 [facility] mg/dL mg/dL 12:41 PM [facility] Nitrite Urine Negative NEG^Negat 09/29/2017 [facility] [place] 12:41 PM [facility] Leukocyte Negative NEG^Negat 09/29/2017 [facility] Esterase Urine franco 12:41 PM [facility] Source Midstream 09/29/2017 [facility] Urine 12:16 PM [facility] RBC Urine 3 (H) 0 - 2 09/29/2017 [facility] /HPF 12:41 PM [facility] WBC Urine 1 0 - 5 09/29/2017 [facility] /HPF 12:41 PM [facility] Squamous 3 (H) 0 - 1 09/29/2017 [facility] Epithelial /HPF /HPF 12:41 PM [place] Urine [facility] Transitional Epi <1 (A) FEW^Few 09/29/2017 [facility] /HPF 12:41 PM [facility] Mucous Urine Present (A) NEG^Negat 09/29/2017 [facility] [place] /LPF 12:41 PM [facility] Specimen (Source) Anatomical Collection Method Collection Time Re ceived Time Location / / Volume Laterality Examination of 09/29/2017 12:11 8 midstream urine PM CDT 12:16 PM CDT specimen (procedure) Cameron Manjarrez APRN, CNP LAB - URINE ORDERABLES Performing Organization Address City/[facility]/ZIP Code Phon e Number [address] [address] [facility] Hemoglobin A1c (09/29/2017 12:03 PM CDT) P athologist Signature Hemoglobin A1C 5.3 0 - 5.6 % 09/29/2017 [facility] 12:48 PM CDT [facility] Comment: Normal <5.7% Prediabetes 5.7-6.4% ??Diab etes 6.5% or higher - adopted from ADA consensus guidelines. Specimen Anatomical Collection Method Collection Time Receive d Time (Source) Location / / Volume Laterality Blood specimen 09/29/2017 12:03 8 (specimen) PM CDT 12:04 PM CDT Cameron Manjarrez APRN PEARL RESTORER LAB - BLOOD ORDERABLES Performing Organization Address City/[facility]/ZIP Code Phon e Number [id number] [place] [address] [facility] INR (09/29/2017 12:03 PM CDT) P athologist Signature INR 1.02 0.86 - 1.14 09/29/2017 [facility] 12:28 PM CDT [facility] Specimen Anatomical Collection Method Collection Time Receive d Time (Source) Location / / Volume Laterality Blood specimen 09/29/2017 12:03 8 (specimen) PM CDT 12:04 PM CDT Cameron Manjarrez APRN, CNP LAB - BLOOD ORDERABLES Performing Organization Address City/[facility]/ZIP Code Phon e Number [id number] [place] [address] [facility] (ABNORMAL) CBC with platelets (09/29/2017 12:03 PM CDT) Patholo gist Method Time Signature WBC 4.8 4.0 - 11.0 09/29/2017 [facility] 10e9/L 12:18 PM CDT [facility] RBC Count 4.87 3.8 - 5.2 09/29/2017 [facility] 10e12/L 12:18 PM CDT [facility] Hemoglobin 12.5 11.7 - 09/29/2017 [facility] 15.7 g/dL 12:18 PM CDT [facility] Hematocrit 39.4 35.0 - 09/29/2017 [facility] 47.0 % 12:18 PM CDT [facility] MCV 81 78 - 100 09/29/2017 [facility] fl 12:18 PM CDT [facility] MCH 25.7 (L) 26.5 - 09/29/2017 [facility] 33.0 pg 12:18 PM CDT [facility] MCHC 31.7 31.5 - 09/29/2017 [facility] 36.5 g/dL 12:18 PM CDT [facility] RDW 13.8 10.0 - 09/29/2017 [facility] 15.0 % 12:18 PM CDT [facility] Platelet Count 332 150 - 450 09/29/2017 [facility] 10e9/L 12:18 PM CDT [facility] Specimen Anatomical Collection Method Collection Time Receive d Time (Source) Location / / Volume Laterality Blood specimen 09/29/2017 12:03 8 (specimen) PM CDT 12:04 PM CDT Cameron Manjarrez APRN PEARL RESTORER LAB - BLOOD ORDERABLES Performing Organization Address City/State/ZIP Code Phon e Number [address] [address] [facility] Basic metabolic panel (09/29/2017 12:03 PM CDT) P athologist Signature Sodium 141 133 - 144 09/29/2017 [facility] mmol/L 12:40 PM CDT [facility] Potassium 3.6 3.4 - 5.3 09/29/2017 [facility] mmol/L 12:40 PM CDT [facility] Chloride 106 94 - 109 09/29/2017 [facility] mmol/L 12:40 PM CDT [facility] Carbon Dioxide 28 20 - 32 09/29/2017 [facility] mmol/L 12:40 PM CDT [facility] Anion Gap 7 3 - 14 09/29/2017 [facility] mmol/L 12:40 PM CDT [facility] Glucose 90 70 - 99 09/29/2017 [facility] mg/dL 12:40 PM CDT [facility] Urea Nitrogen 12 7 - 30 09/29/2017 [facility] mg/dL 12:40 PM CDT [facility] Creatinine 0.85 0.52 - 09/29/2017 [facility] 1.04 mg/dL 12:40 PM CDT [facility] GFR Estimate 76 >60 09/29/2017 [facility] mL/min/1.7 12:[address] Comment: Non GFR Calc GFR Estimate If >90 >60 mL/min/1.7m2 09/29/2017 12:40 PM [facility] Black CDT [facility] Comment: GFR Calc Calcium 8.8 8.5 - 10.1 mg/dL 09/29/2017 12:40 PM CDT [facility] Specimen Anatomical Collection Method Collection Time Receive d Time (Source) Location / / Volume Laterality Blood specimen 09/29/2017 12:03 8 (specimen) PM CDT 12:04 PM CDT Cameron Manjarrez APRN PEARL RESTORER LAB - BLOOD ORDERABLES Performing Organization Address City/State/ZIP Code Phon e Number [address] [address] [facility] ABO/Rh type and screen (09/29/2017 12:03 PM CDT) [facility] gist Method Time Signature ABO O 09/29/2017 [facility] 1:31 PM CDT [facility] RH(D) Pos [facility] Antibody Neg 09/29/2017 [facility] Screen 1:31 PM CDT [facility] Test Valid [facility] 09/29/2017 [facility] 12:46 PM CDT [facility] Specimen 10/26/2017 10/23/2017 [facility] Expires 6:[address] [facility] Blood Bank Pre admission 09/29/2017 [facility] Comment form received 4:[address] [facility] 09/29/17 for [facility] 10/23/17. AA Specimen Anatomical Collection Method Collection Time Receive d Time (Source) Location / / Volume Laterality Blood specimen 09/29/2017 12:03 8 (specimen) PM CDT 12:04 PM CDT Cameron Cruzon SMALLTALK DEVELOPER PEARL RESTORER LAB - BLOOD BANK TEST ORDER Performing Organization Address City/State/ZIP Code Phon e Number [facility] [address] [place] [address] [facility] [address] [place] [address] [facility] documented in this encounter Visit Diagnoses Diagnosis Preop general physical exam - Primary Other specified pre-operative examinatio n documented in this encounter Care Teams Avionics Mechanic Relationship Specialty Start Date End Date Keri Elias PCP - General Family Practice 03/12/15 9 MD Ira Glez David Wayne, MD Orthopedics 07/09/14 [facility] [place], [place] [id number] Astrid Rios PA-C Physician Screen Printing Supervisor Physician Screen Printing Supervisor - 07/09/14 Surgical documented as of this encounter
--- OUTSIDE RECORDS SUMMARY | 2022-01-23 08:26 | XMS_ITS | Encounter Summary ---
:1980 Author Organization [place] Address [address] [facility] [place] [address] Care Team Providers Name Role Phone Bebeto Roth MD Unavailable Astrid Rios PA-C Unavailable Keri Elias MD Primary Care Provider Unavailable Reason for Visit Reason Onset Date Comments Schedule Surgery 07/27/2017 Dr. Ira arizmendi Encounter Details Date Type Department Care Team Description 07/27/2017 Telephone [facility] Orthopaedic Bebeto Roth e Surgery (MD Ira Gardner) [address] [place] [address] [phone] Social History Tobacco Use Types Packs/Day Years [...] on filedocumented in this encounter Care Teams Advertising Editor Relationship Specialty Start Date End Date Keri Elias PCP - General Family Practice 03/12/15 9 MD Ira Glez David Wayne, MD Orthopedics 07/09/[address] [place] [address] Astrid Rios PA-C Physician Industrial Sales Engineer Physician Industrial Sales Engineer - 07/09/14 Surgical documented as of this encounter
--- OUTSIDE RECORDS SUMMARY | 2022-01-23 08:26 | XMS_ITS | Encounter Summary ---
:1980 Author Organization [place] Address [address] [place] [address]. [place] [address] Care Team Providers Name Role Phone Bebeto Roth MD Unavailable Astrid Rios PA-C Unavailable Keri Elias MD Primary Care Provider Unavailable Reason for Visit Reason Comments Rule Out Labor Auth/Cert Specialty Diagnoses / Procedures Referred By Contact Refer red To Contact Obstetrics Diagnoses Maternity*VINCENT 03/08/2017/Labor Encounter for triage in patient Labor and delivery, indication for care (normal spontaneous vaginal delivery) [address] [address] Phone: Referral ID Status Reason Start Date Expiration Date Visits Requ ested Visits Authorized [id number] 1 1 Encounter Details Date Type Department Care Team Description 03/05/2017 Hospital Encounter [facility] Keri Elias Frequent UTI Birthplace MD [place] [address] [place] [address] Social History Tobacco Use Types Packs/Day Years Used Date Smoking Tobacco: Never Smokeless Tobacco: Never Alcohol Use Standard Drinks/Week Comments No 0 (1 standard drink = 0.6 oz pure alcoho l) Sex Assigned at Date Recorded Not on file documented as of this encounter Last Filed Vital Signs Vital Sign Reading Time Taken Comments Blood Pressure 121/75 03/05/2017 9:15 AM MILIEU COORDINATOR Pulse 107 03/05/2017 9:15 AM MILIEU COORDINATOR Temperature 37.2 ??C (99 ??F) 03/05/2017 9:15 AM MILIEU COORDINATOR Respiratory Rate 16 03/05/2017 9:15 AM MILIEU COORDINATOR Oxygen Saturation - - Inhaled Oxygen Concentration - - Weight 79.9 kg (176 lb 3.2 oz) 03/05/2017 9:15 AM MILIEU COORDINATOR Height - - Body Mass Index 31.21 [...] felt your baby move all day. ?? [id number] [employer]. [address] [place] [address]. All rights reserved. This information is not intended as a substitute for professional medical care. Always follow your healthcare professional's instructions. This information has been modified by your health care provider with permission from the publisher. EU COORDINATOR documented in this encounter Medications at Time [...] Abnormal maternal glucose tolerance, antepartum fluticasone (FLONASE) [place] 1-2 sprays into 16 g 3 07/05/2017 [...] Shreya. Outpatient w no procedure - Charge. EU COORDINATOR Rivka Cantu RN - 03/05/2017 9:52 AM [...] Olson to SVE and review tracing. VSS. EU COORDINATOR documented in this encounter H&P Notes Keri Elias MD - 03/05/2017 9:30 AM CST Images from the original note were not included. [facility] Ob Admit /Triage Note Azul Tellez Age: [age] year old Date of : 1980 Date of Admission: 03/05/2017 9:30 AM Date of service: 03/05/2017. History of Present Illness (Resident / Clinician): Azul Tellez is a patient of Keri Lyon and Dr. Melisa Maher from [facility]. She is a 36 year [...] Negative Negative for C. trachomatis rRNA by diploma pharmacy technician mediated amplification. A negative result by diploma pharmacy technician mediated amplification does not preclude the presence of C. trachomatis infection because results are dependent on proper and adequate collection, absence of inhibitors, and sufficient rRNA to be detected. [facility] 08/05/2016 Negative Negative for N. gonorrhoeae rRNA by diploma pharmacy technician mediated amplification. A negative result by diploma pharmacy technician mediated amplification does not preclude the [...] to Encounter: fluticasone (FLONASE) 50 MCG/ACT spray [place] 1-2 sprays into both nostrils daily amoxicillin [...] wishes. DO Kenia Rowanlaila Family [facility] Attestation: This patient has been seen and evaluated by me, Keri Elias on 03/05/2017. I saw and discussed the case with the primary resident the care team. I agree with the findings and plan in this note. I have reviewed today's vital signs, medications, laboratory results. [facility] EU COORDINATOR documented in this encounter Plan of Treatment Not on filedocumented as of this encounter Visit Diagnoses Diagnosis Frequent UTI Urinary tract infection, site not specif ied Encounter for triage in patient documented in this encounter Care Teams Electronic Repair Troubleshooter Relationship Specialty Start Date End Date Keri Elias PCP - General Family Practice 03/12/15 9 MD Ira Glez David Wayne, MD Orthopedics 07/09/[address] [place], [place] [address] [place] [address] Astrid Rios PA-C Physician Manager Location Physician Manager Location - 07/09/14 Surgical documented as of this encounter
--- OUTSIDE RECORDS SUMMARY | 2022-01-23 08:26 | XMS_ITS | Encounter Summary ---
:1980 Author Organization [place] Address [facility] [place] [address] Care Team Providers Name Role Phone Bebeto Roth MD Unavailable Astrid Rios PA-C Unavailable Keri Elias MD Primary Care Provider Unavailable Reason for Visit Reason Comments RECHECK 3 weeks post-, pt here to follow up in mid back fusion, s/p PSF T10-L3 10/12/09 Encounter Details Date Type Department Care Team Description 03/30/2017 Office Visit [facility] of thoracolumbar region (Primary Dx); Clinic MD Devan S/P spinal fusion [address] [place] [address] [address] [place] [address] [phone] Social History Tobacco Use Types Packs/Day Years [...] 71.7 kg (158 lb) 03/30/2017 12:31 PM CONCHE OPERATOR Height 160.7 cm (5' 3.25) 03/30/2017 12:31 PM CONCHE OPERATOR Body Mass Index 27.77 03/30/2017 12:31 PM CONCHE OPERATOR documented in this encounter Progress Notes [...] No Joint stiffness: No Bone fracture: No HE OPERATOR documented in this encounter Nursing Notes Kathleen Trotter CMA - 03/30/2017 12:30 PM CST Reason For Visit: Chief Complaint Patient presents with ??? RECHECK 3 weeks post-, pt here to follow up in mid back fusion, s/p PSF T10-L3 10/12/09 Primary MD: Keri Elias MD: Self Referred Merchandise Complaint Adjuster? 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 Yes. 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 Date of injury: None Type of injury: [...] might be hidden Kathleen Trotter CMA 03/30/2017 HE OPERATOR documented in this encounter Plan of Treatment Not on filedocumented as of this encounter Visit Diagnoses Diagnosis Adolescent idiopathic scoliosis of [facility] region - Primary Scoliosis (and kyphoscoliosis), idiopath ic S/P spinal fusion Arthrodesis status documented in this encounter Care Teams Nursing Project Coordinator Relationship Specialty Start Date End Date Keri Elias PCP - General Family Practice 03/12/15 9 MD Ira Glez David Wayne, MD Orthopedics 07/09/[address] [place] [address] Astrid Rios PA-C Physician Machine Cloth Measurer Physician Machine Cloth Measurer - 07/09/14 Surgical documented as of this encounter
--- OUTSIDE RECORDS SUMMARY | 2022-01-23 08:26 | XMS_ITS | Encounter Summary ---
:1980 Author Organization [place] Address [facility] [place] [address] Care Team Providers Name Role Phone Bebeto Roth MD Unavailable Astrid Rios PA-C Unavailable Keri Elias MD Primary Care Provider Unavailable Reason for Visit Diagnostic Imaging XR - Closed Specialty Diagnoses / Procedures Referred By Contact Refer red To Contact Diagnoses S/P spinal fusion Bebeto Roth MD Procedures XR Spine Complete 2 Views [address] [place], [place] [address] Referral ID Status Reason Start Date Expiration Date Visits Requ ested Visits Authorized [id number] Closed 06/28/2017 06/28/2018 1 1 Encounter Details Date Type Department Care Team Description 06/29/2017 Radiant Appointment [facility] Orthopaedics Bebeto Roth S/P spinal fusion XRay MD Devan 9 [facility] SE [address] 4th [address] [facility], [address] [place] [address] [phone] Social History Tobacco Use Types Packs/Day Years [...] No substantial global coronal imbalance. Sagittal Vertical [place] (A vertical line drawn from the center [...] No substantial global coronal imbalance. Sagittal Vertical [place] (A vertical line drawn from the center [...] documented in this encounter Care Teams Dental Assistant Medical Assistant Relationship Specialty Start Date End Date MeghaAlexa Tysonne PCP - General Family Practice 03/12/15 9 MD Ira Glez David Wayne, MD Orthopedics 07/09/[address] [place] [address] Astrid Rios PA-C Physician Hospital Receiving Clerk Physician Hospital Receiving Clerk - 07/09/14 Surgical documented as of this encounter
--- OUTSIDE RECORDS SUMMARY | 2022-01-23 08:26 | XMS_ITS | Encounter Summary ---
:1980 Author Organization [place] Address [facility] [place] [address] Care Team Providers Name Role Phone Bebeto Roth MD Unavailable Astrid Rios PA-C Unavailable Keri Elias MD Primary Care Provider Unavailable Encounter Details Date Type Department Care Team Description 09/29/2017 Allied Health/Nurse [facility] Preoperative Rn, Pac Visit Assessment Center [address] [place] [address] 5th Floor [place] [phone] Social History Tobacco Use Types Packs/Day [...] Arrival time: 5:30 am Please come to: [facility] [address] [place] [address] -Bump Grader Operator parking is available in front of [facility] from 5:15AM to 8:00PM. If you prefer, park your car in the Green Lot. -Proceed to the 3rd floor, check in at the Adult Surgery Waiting Lounge. [phone] If an escort is needed stop at [...] - Do NOT wear any makeup, fingernail lithuanian or jewelry. - Begin using Incentive Spirometer 1 week prior to surgery. Use 4 times per day, up to 5-10 breaths each time. Bring Incentive Spirometer to hospital. Questions or Concerns: If you have questions or concerns prior to your surgery, call [phone]. (Mon - Fri 8 am- 5:30 pm) [...] on filedocumented in this encounter Care Teams Account General Manager Relationship Specialty Start Date End Date Keri Elias PCP - General Family Practice 03/12/15 9 MD Ira Glez David Wayne, MD Orthopedics 07/09/[address] [place] [address] Astrid Rios PA-C Physician Field Agronomist Physician Field Agronomist - 07/09/14 Surgical documented as of this encounter
--- OUTSIDE RECORDS SUMMARY | 2022-01-23 08:26 | XMS_ITS | Encounter Summary ---
:1980 Author Organization [place] Address [address] [place] [address] Care Team Providers Name Role Phone Bebeto Roth MD Unavailable Astrid Rios PA-C Unavailable Keri Elias MD Primary Care Provider Unavailable Francisco Metz MD Primary Care Provider [phone] Francisco Metz MD Unavailable [phone] Kenton Katz MD Unavailable Unavailable Karen Veliz DO Primary Care Provider Kenton Katz MD Unavailable Unavailable Karen Veliz DO Unavailable Reason for Visit Reason Onset Date Comments Outreach 03/13/2017 Rtn no show #2 Encounter Details Date Type Department Care Team Description 03/13/2017 Telephone [facility] Keri Elias (Rtn no show Medicine Clinic MD [place] #2 ) [address], [address] [place], [place] [address] Social History Tobacco Use Types Packs/Day Years [...] some of your recently scheduled appointments. At [facility] we have a new no show policy, where if you miss too many appointments within 1 year, we may not be able to continue to schedule you. If you are unable to make your scheduled appointments, please call the clinic to cancel prior to your appointment time. T ABSTRACTOR documented in this encounter Plan of Treatment Not on filedocumented as of this encounter Visit Diagnoses Not on filedocumented in this encounter Care Teams Informatics Manager Relationship Specialty Start Date End Date Keri Elias PCP - General Family Practice 03/12/15 9 MD Isaías Glez Mitchell PCP - General Family Practice 11/14/18 04/02/20 MD Stevie Karen Veliz, PCP - General Family Medicine 04/03/20[address] [place] [address] Bebeto Roth MD Orthopedics 07/09/14 [facility] [address] [place] [address] Astrid Rios PA-C Physician Outside Sales Physician Outside Sales - 07/09/14 Surgical Francisco Metz Assigned PCP 07/04/19 02/01/20 MD Stevie [address] [place] [address] Kenton aKtz Assigned PCP 02/02/20 08/27/20 MD Feliberto NO INFO AVAILABLE Kenton Katz Assigned Endocrinology 08/28/20 07/23/21 MD Feliberto Provider NO INFO AVAILABLE Karen Veliz, Assigned PCP 08/28/202019 [place] [address] documented as of this encounter
--- OUTSIDE RECORDS SUMMARY | 2022-01-23 08:26 | XMS_ITS | Encounter Summary ---
:1980 Author Organization [place] Address [address] [facility] [place] [address] Care Team Providers Name Role Phone Bebeto Roth MD Unavailable Astrid Rios PA-C Unavailable Keri Elias MD Primary Care Provider Unavailable Reason for Referral Diagnostic Imaging XR - Closed Specialty Diagnoses / Procedures Referred By Contact Refer red To Contact Diagnoses S/P spinal fusion Bebeto Roth MD Procedures XR Spine Complete 2 Views [address] [address] 4 Referral ID Status Reason Start Date Expiration Date Visits Requ ested Visits Authorized [id number] Closed 06/28/2017 06/28/2018 1 1 Diagnostic Imaging XR - Closed Specialty Diagnoses / Procedures Referred By Contact Refer red To Contact Diagnoses S/P spinal fusion Bebeto Roth MD Procedures XR Spine Complete 2 Views [address] [place], [place] [address] Referral ID Status Reason Start Date Expiration Date Visits Requ ested Visits Authorized [id number] Closed 06/28/2017 06/28/2018 1 1 Encounter Details Date Type Department Care Team Description 06/28/2017 Orders Only [facility] Orthopaedic Bebeto Roth S/P spi nal fusion Clinic MD Devan (Primary Dx) [address] [place] [address] 4[address] [place] [address] [phone] Social History Tobacco Use Types Packs/Day Years [...] No substantial global coronal imbalance. Sagittal Vertical Marlow (A vertical line drawn from the center [...] No substantial global coronal imbalance. Sagittal Vertical Marlow (A vertical line drawn from the center [...] No substantial global coronal imbalance. Sagittal Vertical Marlow (A vertical line drawn from the center [...] No substantial global coronal imbalance. Sagittal Vertical Marlow (A vertical line drawn from the center [...] status documented in this encounter Care Teams String Cutter Relationship Specialty Start Date End Date Keri Elias PCP - General Family Practice 03/12/15 9 MD Ira Glez David Wayne, MD Orthopedics 07/09/[address] [place] [address] Astrid Rios PA-C Physician Equipment Inspector Physician Equipment Inspector - 07/09/14 Surgical documented as of this encounter
--- OUTSIDE RECORDS SUMMARY | 2022-01-23 08:26 | XMS_ITS | Encounter Summary ---
:1980 Author Organization [place] Address [address] [facility] [place] [address] Care Team Providers Name Role Phone Bebeto Roth MD Unavailable Astrid Rios PA-C Unavailable Keri Elias MD Primary Care Provider Unavailable Reason for Visit Reason Onset Date Comments Call To Schedule Appointment 03/07/2017 PDP-MOM Encounter Details Date Type Department Care Team Description 03/07/2017 Telephone [facility] Keri Elias Call To Schedule Medicine Clinic MD [place] Appointment (PDP-MOM) [facility] [address] [place] [address], [address] [place], [place] [address] Social History Tobacco Use Types Packs/Day Years Used Date Smoking Tobacco: Never Smokeless Tobacco: Never Alcohol Use Standard Drinks/Week Comments No 0 (1 standard drink = 0.6 oz pure alcoho l) Sex Assigned at Date Recorded Not on file documented as of this encounter Miscellaneous Notes Telephone Encounter - Tala Velasco CMA - 03/08/2017 11:27 AM CST Patient scheduled 03/23/17 and 04/12/17. [employer] Telephone Encounter - Clarita Gunderson RN - 03/07/2017 3:47 PM CST Please call patient to schedule 2 week and 6 week visits: Date of Delivery: 03/06/17 Date of Discharge: 03/07/17 Please document all calls. Close encounter after appointment is scheduled or after last attempt has been made Clarita Gunderson, RN [employer] documented in this encounter Plan of Treatment Not on filedocumented as of this encounter Visit Diagnoses Not on filedocumented in this encounter Care Teams Rn Transition Relationship Specialty Start Date End Date Keri Elias PCP - General Family Practice 03/12/15 9 MD Ira Glez David Wayne, MD Orthopedics 07/09/14 [facility] [place] [address] Astrid Rios PA-C Physician Hoof Trimmer Physician Hoof Trimmer - 07/09/14 Surgical documented as of this encounter
--- OUTSIDE RECORDS SUMMARY | 2022-01-23 08:26 | XMS_ITS | Encounter Summary ---
:1980 Author Organization [place] Address [facility] [place] [address] Care Team Providers Name Role Phone Bebeto Roth MD Unavailable Astrid Rios PA-C Unavailable Keri Elias MD Primary Care Provider Unavailable Reason for Visit Diagnostic Imaging XR - Closed Specialty Diagnoses / Procedures Referred By Contact Refer red To Contact Diagnoses Pain Bebeto Roth MD Procedures XR Leg Length Evaluation [address] [facility] [address] [place], [place] [address] Referral ID Status Reason Start Date Expiration Date Visits Requ ested Visits Authorized [id number] Closed 03/30/2017 03/30/2018 1 1 Encounter Details Date Type Department Care Team Description 03/30/2017 Radiant Appointment [facility] Chan Roth Pain Farhanaay MD Devan 9 [facility] [address] 1[address] [place] [address] [phone] Social History Tobacco Use Types Packs/Day Years [...] 12:42 PM Pain Results for this EVALUATION SCOURER procedure are i n the results section. documented in this encounter Results XR Leg Length Evaluation (03/30/2017 12:42 PM SCOURER) Anatomical Region Laterality Modality Neck Computed Radiography Specimen (Source) Anatomical Location Collection Method / Collectio n Time Received Time / Laterality Volume Impressions 03/30/2017 1:17 PM SCOURER Impression: 1. Mild right convexed curvature of the main thoracic spine. 2. No ??global sagittal imbalance. 3. Weight bearing axis as detailed above . 4. Stable posterior instrumented fusion from T10 to L3 ALISHA POPE MD Narrative 03/30/2017 1:17 PM SCOURER EXAMINATION: XR SPINE COMPLETE 2 VW, XR [...] No substantial global coronal imbalance. Sagittal Vertical Fallon (A vertical line drawn from the center [...] No substantial global coronal imbalance. Sagittal Vertical Fallon (A vertical line drawn from the center [...] pain documented in this encounter Care Teams Configuration Management Specialist Relationship Specialty Start Date End Date Keri Elias PCP - General Family Practice 03/12/15 9 MD Ira Glez David Wayne, MD Orthopedics 07/09/14 [facility] [place], [place] [address] [place] [address] Astrid Rios PA-C Physician Agency Director Physician Agency Director - 07/09/14 Surgical documented as of this encounter
--- OUTSIDE RECORDS SUMMARY | 2022-01-23 08:27 | XMS_ITS | Encounter Summary ---
:1980 Author Organization [place] Address [address] [facility] [place] [address] Care Team Providers Name Role Phone Bebeto Roth MD Unavailable Astrid Rios PA-C Unavailable Keri Elias MD Primary Care Provider Unavailable Reason for Visit Reason Onset Date Comments Appointment 10/14/2016 Encounter Details Date Type Department Care Team Description 10/14/2016 Telephone [facility] Jos Elias, Appointment Clinic [facility] [address], [address] [place], [place] [address] Social History Tobacco Use Types Packs/Day Years [...] on filedocumented in this encounter Care Teams Riprap Placing Supervisor Relationship Specialty Start Date End Date Keri Elias PCP - General Family Practice 03/12/15 9 MD Ira Glez David Wayne, MD Orthopedics 07/09/[address] [place] [address] Astrid Rios PA-C Physician Vascular Ultrasound Technician Physician Vascular Ultrasound Technician - 07/09/14 Surgical documented as of this encounter
--- OUTSIDE RECORDS SUMMARY | 2022-01-23 08:27 | XMS_ITS | Encounter Summary ---
:1980 Author Organization [place] Address [address] [facility] [place] [address] Care Team Providers Name Role Phone Marshalucy Lisa Primary Care Provider Encounter Details Date Type Department Care Team Description 01/29/2014 Radiant Appointment [facility] Astrid Rios, Scoliosis [facility]ND[facility] 1ST FLOOR, CLINIC [address] [place] [phone] Social History Tobacco Use Types Packs/Day Years [...] Resu lts for this SCOLIOSIS 2 VIEWS COMMUNITY ARTS OFFICER procedure are in the results section. documented in this encounter Results XR Spine Complete 2 vw (01/29/2014 8:26 AM COMMUNITY ARTS OFFICER) Anatomical Region Laterality Modality Spine Computed Radiography Specimen (Source) Anatomical Location Collection Method / Collectio n Time Received Time / Laterality Volume Impressions 01/29/2014 8:54 AM COMMUNITY ARTS OFFICER IMPRESSION: 1. Redemonstration of mild dextroscolios is in the lower thoracic spine, with intact instrumentation follo wing posterior instrumented fusion from T10-L3. BABS MONTES MD Narrative 01/29/2014 8:54 AM COMMUNITY ARTS OFFICER EXAMINATION: Spine 2 views DATE: 01/29/2014 HISTORY: [...] T10-L3. BABS MONTES MD Astrid Rios PA-C [facility] DIAGNOSTIC IMAGING ORDER TAYLOR documented in this encounter Visit Diagnoses Diagnosis Scoliosis Scoliosis (and kyphoscoliosis), idiopath ic documented in this encounter Care Teams Pit Slagman Relationship Specialty Start Date End Date Lisa Dewitt DO PCP - General 08/12/13 07/15/14 [facility] [address] [place] [address] documented as of this encounter
--- OUTSIDE RECORDS SUMMARY | 2022-01-23 08:27 | XMS_ITS | Encounter Summary ---
:1980 Author Organization [place] Address 24[address] [facility] [place] [address] Care Team Providers Name Role Phone Bebeto Roth MD Unavailable Astrid Rios PA-C Unavailable Clinic - [facility] Primary Care Provider + Reason for Visit Reason Onset Date Comments Refill Request 03/06/2015 minocycline (MINOCIN ,DYNACIN) 100 MG capsule Encounter Details Date Type Department Care Team Description 03/06/2015 Telephone [facility] Family Lisa Dewitt, Refill Re [facility] Clinic DO (minocycline [address] [place] [address], [facility] (MINOCIN,DYNACIN) 100 [address] capsule) [place], [place] [address] [place], [place] [phone] [address] Social History Tobacco Use Types Packs/Day Years [...] and hung up phone. Clarita Gunderson RN AL ANALYTICS HEAD Telephone Encounter - Joana Banerjee CMA - 03/06/2015 1:11 PM CST [facility] Family Medicine phone call message- patient requesting a refill: Full Medication Name: minocycline (MINOCIN,DYNACIN) 100 MG capsule 90 capsule 3 12/31/2013 -- Sig: Take 1 capsule (100 mg) by mouth daily Class: Fax Route: Oral Order: [id number] Dose: Pharmacy confirmed as [facility] [id number] [address] [facility] & [address] [place] [phone] : Yes Additional Comments: OK to leave a message on voice mail? Yes Primary language: [place] Security Tester needed? No Call taken on March 06, 2015 at 1:12 PM by Joana Banerjee AL ANALYTICS HEAD documented in this encounter Plan of Treatment Not on filedocumented as of this encounter Visit Diagnoses Not on filedocumented in this encounter Care Teams Blending Tank Tender Relationship Specialty Start Date End Date Clinic - Angela Laboy PCP - General 07/16/[address] [place] [address] [address] [place] [address] Bebeto Roth MD Orthopedics 07/09/[address] [place] [address] Astrid Rios PA-C Physician Avionics Electronics Technician Physician Avionics Electronics Technician - 07/09/14 Surgical documented as of this encounter
--- OUTSIDE RECORDS SUMMARY | 2022-01-23 08:27 | XMS_ITS | Encounter Summary ---
:1980 Author Organization [place] Address [address] [facility] [place] [address] Care Team Providers Name Role Phone Bebeto [...] Street, Anxiety ; [address] Panic attack [place] [address] Social History Tobacco Use Types Packs/Day Years Used Date Smoking Tobacco: Never Smokeless Tobacco: Never Alcohol Use Standard Drinks/Week Comments No 0 (1 standard drink = 0.6 oz pure alcoho l) Sex Assigned at Date Recorded Not on file documented as of this encounter Last Filed Vital Signs Vital Sign Reading Time Taken Comments Blood Pressure 115/78 03/12/2015 10:03 AM PARK RANGER Pulse 109 03/12/2015 10:03 AM PARK RANGER Temperature 36.6 ??C (97.9 ??F) 03/12/2015 10:03 AM PARK RANGER Respiratory Rate - - Oxygen Saturation 99% 03/12/2015 10:03 AM PARK RANGER Inhaled Oxygen Concentration - - Weight 71.4 kg (157 lb 6.4 oz) 03/12/2015 10:03 AM PARK RANGER Height - - Body Mass Index 27.44 [...] length 25 minutes, all spent counseling directly [id number] about medications. RANGER documented in this encounter Plan of Treatment Not on filedocumented as of this encounter Visit Diagnoses Diagnosis Acne vulgaris - Primary Other acne Environmental allergies Allergic rhinitis, cause unspecified Anxiety Anxiety state, unspecified Panic attack Panic disorder without agoraphobia documented in this encounter Care Teams Rn Lab Relationship Specialty Start Date End Date Keri Elias PCP - General Family Practice 03/12/15 9 MD Ira Glez David Wayne, MD Orthopedics 07/09/[address] [place] [address] Astrid Rios PA-C Physician Flap Presser Physician Flap Presser - 07/09/14 Surgical documented as of this encounter
--- OUTSIDE RECORDS SUMMARY | 2022-01-23 08:27 | XMS_ITS | Encounter Summary ---
:1980 Author Organization [place] Address 24[address] [facility] [place] [address] Care Team Providers Name Role Phone Bebeto Roth MD Unavailable Astrid Rios PA-C Unavailable Keri Elias MD Primary Care Provider Unavailable Reason for Visit Reason Comments Care Check to see if fetus is tur teddy correctly Encounter Details Date Type Department Care Team Description 02/14/2017 Office Visit Narda Mcleod Keri Elias of [facility] Clinic MD [place] risk , [address], antepar mauricio (Primary [address] Dx) [place], [place] [address] Social History Tobacco Use Types Packs/Day Years Used Date Smoking Tobacco: Never Smokeless Tobacco: Never Alcohol Use Standard Drinks/Week Comments No 0 (1 standard drink = 0.6 oz pure alcoho l) Sex Assigned at Date Recorded Not on file documented as of this encounter Last Filed Vital Signs Vital Sign Reading Time Taken Comments Blood Pressure 135/83 02/14/2017 8:05 AM TIME SIGNAL WIRER Pulse 109 02/14/2017 8:05 AM TIME SIGNAL WIRER Temperature 36.4 ??C (97.6 ??F) 02/14/2017 8:05 AM TIME SIGNAL WIRER Respiratory Rate - - Oxygen Saturation 100% 02/14/2017 8:05 AM TIME SIGNAL WIRER Inhaled Oxygen Concentration - - Weight 79.7 kg (175 lb 12.8 oz) 02/14/2017 8:05 AM TIME SIGNAL WIRER Height - - Body Mass Index 31.14 [...] with the final plan. Keri Elias MD SIGNAL WIRER documented in this encounter Plan of Treatment Not on filedocumented as of this encounter Procedures Procedure Name Priority Date/Time Associated Diagnosis Comme nts GROUP B STREP PCR Routine 02/14/2017 1:07 PM Supervision of hi gh Results for this TIME SIGNAL WIRER risk , procedure ar e in antepartum the results section. documented in this encounter Results Group B strep PCR (GBS) (02/14/2017 1:07 PM TIME SIGNAL WIRER) [facility] Method Time Signature Group B Strep Vaginal 02/14/[address] [facility] PCR Spec F[place] Rectal 9:10 AM TIME SIGNAL WIRER [facility] Group B Strep Negative NEG^Negat 02/15/2017 [facility] franco 11:32 AM TIME SIGNAL WIRER [facility] Comment: No GBS DNA detected, presumed negative f or GBS or number of bacteria may be below the limit of detection of the assa y. Assay performed on incubated broth cultu re of specimen using [employer] real-time PCR. Specimen Anatomical Collection Method Collection Time Receive d Time (Source) Location / / Volume Laterality Vaginal Rectal 02/14/2017 1:07 PM 018 1:12 TIME SIGNAL WIRER PM TIME SIGNAL WIRER Keri Elias MD LAB - MICRO GENERAL ORDERABL Performing Organization Address City/State/ZIP Code Phon e Number [id number] [place] [address] [place] documented in this encounter Visit Diagnoses Diagnosis Supervision of high risk , ante - Primary documented in this encounter Care Teams Event Marketing Intern Relationship Specialty Start Date End Date Keri Elias PCP - General Family Practice 03/12/15 MD Ira Abrams David Wayne, MD Orthopedics 07/09/[address] [place], [place] [address] [place] [address] Asrtid Rios PA-C Physician Rails Developer Physician Rails Developer - 07/09/14 Surgical documented as of this encounter
--- OUTSIDE RECORDS SUMMARY | 2022-01-23 08:27 | XMS_ITS | Encounter Summary ---
:1980 Author Organization [place] Address 2450 [facility] [place] [address] Care Team Providers Name Role Phone Bebeto Roth MD Unavailable Astrid Rios PA-C Unavailable Keri Eilas MD Primary Care Provider Unavailable Reason for Visit Reason Onset Date Comments Refill Request 08/11/2016 ondansetron (ZOFRAN) 4 MG tablet Encounter Details Date Type Department Care Team Description 08/11/2016 Refill [facility] Jasmin Elias Refill Request Clinic MD [place] (ondansetron (ZOFRAN) [address]) [address] [place], [place] [address] Social History Tobacco Use Types [...] phrase .smirefuse and route it to the [facility] TE[facility] pool to inform the patient and the pharmacy. Kristina Stafford Telephone Encounter - Tala Velasco CMA - 08/11/2016 12:38 PM CDT [facility] Family Medicine phone call message- patient requesting a refill: Full Medication Name: ondansetron (ZOFRAN) 4 MG tablet Pharmacy confirmed as [id number] - [place], [place] - [address] [facility] [address] [facility] [address] : Yes Additional Comments: None OK to leave a message on voice mail? Yes Primary language: Bahraini Chief Client Officer needed? No Call taken on August 11, 2016 at 12:38 PM by Tala Velasco documented in this encounter Plan of Treatment Not on filedocumented as of this encounter Visit Diagnoses Diagnosis Nausea Nausea alone documented in this encounter Care Teams Hotel Reservationist Relationship Specialty Start Date End Date Keri Elias PCP - General Family Practice 03/12/15 9 MD Ira Glez, Bebeto Hartman MD Orthopedics 07/09/[address] [place] [address] [address] [place] [address] Astrid Rios PA-C Physician Nursery Worker Physician Nursery Worker - 07/09/14 Surgical documented as of this encounter
--- OUTSIDE RECORDS SUMMARY | 2022-01-23 08:27 | XMS_ITS | Encounter Summary ---
:1980 Author Organization [place] Address [facility] [place] [address] Care Team Providers Name Role Phone Bebeto [...] cy test positive (Primary Dx); Medicine Clinic ROUGE MIXER RN TRIAGE Dysuria; [address] [place] [address] nxiety; [address] [place] [address] [phone] (Wo rk) Social History Tobacco Use Types [...] allergies - fluticasone (FLONASE) 50 MCG/ACT spray; Snyder 1-2 sprays into both nostrils daily Dispense: 16 g; Refill: 3 5. test positive - HCG Qualitative Urine (UPT) ([facility]) Results for orders placed or performed in visit on 07/04/16 HCG Qualitative Urine (UPT) ([facility]) Result Value Ref Range HCG Qual Urine POSITIVE Negative Thank you for coming to [facility] today. Lab Testing: If you had lab testing today and your results are reassuring or normal they will be mailed to you or sent through [facility] within 7 days. If the lab tests need quick action we will call you with the results. The phone number we will call with results is # [phone] (home) . If this is not the best numberplease call our clinic and change the number. Medication Refills: If you need any refills please call your pharmacy and they will contact us. If you need to pickle sorter your refill at a new pharmacy, please contact the new pharmacy directly. The new pharmacy will help you get your medications transferred faster. Scheduling: If you have any concerns about today's visit or wish to schedule another appointment please call ouroffice during normal business hours [phone] (8- 5:00 M-F) If a referral was made to a [facility] and you don't get a call from [facility] please call [phone]. If a Mammogram was ordered for you at [facility] call [phone] to schedule or change yourappointment. If you had an XRay/CT/Ultrasound/MRI ordered the number is [phone] to schedule or change your radiology appointment. Medical Concerns: If you have urgent medical concerns please call [phone] at any time of the day. If [...] allergies - fluticasone (FLONASE) 50 MCG/ACT spray; Snyder 1-2 sprays into both nostrils daily Options [...] Range Method Time Signature Specimen Midstream Urine [facility] Special Specimen received [place] O F Requests in preservative [facility] Culture Micro 10,000 to 50,000 colonies/mL Jia albicans / dubliniensis Jia albicans and INFECTIOUS Jia dubliniensis are not routinely speciated [facility] eptibility testing not DISEASE routinely done DIAGNOSTIC [...] Code Phon e Number INFECTIOUS DISEASES [address] [place] [address] DIAGNOSTIC LABORATORY, [place] [address] [place] [address], [address] [address], [facility] INFECTIOUS DISEASE [address] [place] [address], [facility] DIAGNOSTIC LABORATORY HCG Qualitative Urine (UPT) ([facility]) (07/04/2016 4:24 PM CDT) athologist Signature HCG Qual Urine POSITIVE Negative [facility] Specimen Anatomical Collection Method Collection Time Receive d Time (Source) Location / / Volume Laterality Urine specimen 07/04/2016 4:24 PM 017 4:25 (specimen) CDT PM CDT Mylene Vieira ROUGE MIXER RN TRIAGE LAB - [facility] Performing Organization Address City/State/ZIP Code Phon e Number [facility] [address] [place], [place] [address] [facility] documented in this encounter Visit Diagnoses Diagnosis test positive - Primary examination or test, positive result Dysuria Anxiety Anxiety state, unspecified Environmental allergies Allergic rhinitis, cause unspecified documented in this encounter Care Teams Railroad Police Officer Relationship Specialty Start Date End Date Keri Elias PCP - General Family Practice 03/12/15 9 MD Ira Glez, Bebeto Hartman MD Orthopedics 07/09/14 [facility] [facility] [address] [place] [address] Astrid Rios PA-C Physician Front Worker Physician Front Worker - 07/09/14 Surgical documented as of this encounter
--- OUTSIDE RECORDS SUMMARY | 2022-01-23 08:27 | XMS_ITS | Encounter Summary ---
:1980 Author Organization [place] Address [address] [facility] [place] [address] Care Team Providers Name Role Phone Bebeto Roth MD Unavailable Astrid Rios PA-C Unavailable Keri Elias MD Primary Care Provider Unavailable Reason for Visit Reason Onset Date Comments Refill Request 10/03/2016 Meclizine 12.5mg Encounter Details Date Type Department Care Team Description 10/03/2016 Refill [facility] Jasmin Elias Refill Request Clinic MD [place] (Meclizine 12.5mg) [address] [place] [address], [address] [place] [address] Social History Tobacco Use Types Packs/Day Years [...] phrase .smirefuse and route it to the [facility] pool to inform the patient and the pharmacy. Kristina Stafford documented in this encounter Plan of Treatment Not on filedocumented as of this encounter Visit Diagnoses Diagnosis Vertigo Dizziness and giddiness documented in this encounter Care Teams Analytical Manager Relationship Specialty Start Date End Date Keri Elias PCP - General Family Practice 03/12/15 9 MD Ira Glez David Wayne, MD Orthopedics 07/09/[address] [place] [address] Astrid Rios PA-C Physician Flight Attendant Physician Flight Attendant - 07/09/14 Surgical documented as of this encounter
--- OUTSIDE RECORDS SUMMARY | 2022-01-23 08:27 | XMS_ITS | Encounter Summary ---
:1980 Author Organization [place] Address [address] [facility] [place] [address] Care Team Providers Name Role Phone Bebeto Roth MD Unavailable Astrid Rios PA-C Unavailable Keri Elias MD Primary Care Provider Unavailable Reason for Visit Reason Comments Orders Encounter Details Date Type Department Care Team Description 07/25/2016 Orders Only [facility] Orthopaedic Bebeto Roth is (Primary Dx); Clinic MD Devan S/P spinal fusion [address] [place] [address] [place] [id number] Social History Tobacco Use Types Packs/Day Years [...] status documented in this encounter Care Teams Order Management Specialist Relationship Specialty Start Date End Date Keri Elias PCP - General Family Practice 03/12/15 9 MD Ira Glez David Wayne, MD Orthopedics 07/09/14 [facility] [place], [place] [address] Astrid Rios PA-C Physician Automotive Internet Sales Consultant Physician Automotive Internet Sales Consultant - 07/09/14 Surgical documented as of this encounter
--- OUTSIDE RECORDS SUMMARY | 2022-01-23 08:27 | XMS_ITS | Encounter Summary ---
:1980 Author Organization [place] Address [address] [facility] [place] [address] Care Team Providers Name Role Phone Bebeto Roth MD Unavailable Astrid Rios PA-C Unavailable Keri Elias MD Primary Care Provider Unavailable Reason for Visit Reason Onset Date Comments Refill Request 03/17/2016 Encounter Details Date Type Department Care Team Description [facility], Refill Request Clinic [facility] [address], [address] [place], [place] [address] Social History Tobacco Use Types [...] phrase .smirefuse and route it to the [facility] STEAM BOX TENDER pool to inform the patient and the pharmacy. Clementina Curtis CMA ILE CONVERTER documented in this encounter Plan of Treatment Not on filedocumented as of this encounter Visit Diagnoses Diagnosis Acne vulgaris - Primary Other acne documented in this encounter Care Teams General Accounting Clerk Relationship Specialty Start Date End Date Keri Elias PCP - General Family Practice 03/12/15 9 MD Ira Glez David Wayne, MD Orthopedics 07/09/14 [facility] [facility] [address] [place] [address] Astrid Rios PA-C Physician Division Chair Physician Division Chair - 07/09/14 Surgical documented as of this encounter
--- OUTSIDE RECORDS SUMMARY | 2022-01-23 08:27 | XMS_ITS | Encounter Summary ---
:1980 Author Organization [place] Address [facility] access hospital0 [facility] [place] [address] Care Team Providers Name Role Phone Bebeto Roth MD Unavailable Astrid Rios PA-C Unavailable Keri Elias MD Primary Care Provider Unavailable Reason for Visit Reason Comments Care Encounter Details Date Type Department Care Team Description 09/08/2016 Office Visit [facility] Keri Elias First t rimester ; Medicine Clinic MD [place] Nausea; [address] [place] [address], [facility] [address] [place] [address] Social History Tobacco Use Types Packs/Day Years [...] giddiness documented in this encounter Care Teams Construction Services Technician Relationship Specialty Start Date End Date Keri Elias PCP - General Family Practice 03/12/15 9 MD Ira Glez David Wayne, MD Orthopedics 07/09/[address] [place] [address] Astrid Rios PA-C Physician Supervisor Cloth Winding Physician Supervisor Cloth Winding - 07/09/14 Surgical documented as of this encounter
--- OUTSIDE RECORDS SUMMARY | 2022-01-23 08:27 | XMS_ITS | Encounter Summary ---
:1980 Author Organization [place] Address [address] [place] [address]. [place] [address] Care Team Providers Name Role Phone Meeta Dewittanda Primary Care Provider Reason for Visit Reason Comments Orders Encounter Details Date Type Department Care Team Description 06/04/2014 Orders Only Orthopaedic Clinic Bebeto Roth Scoliosis (Primary Dx); [facility] MD Devan S/P spinal fusion Center [address] [place] [address] 1st Floor, [address] [place] [phone] Social History Tobacco Use Types Packs/Day Years [...] the cervicothoracic junction lying approximately 6 cm automation architect ior to the lumbosacral junction. Stable mild [...] the cervicothoracic junction lying approximately 6 cm automation architect ior to the lumbosacral junction. Stable mild [...] status documented in this encounter Care Teams Hematology Technician Relationship Specialty Start Date End Date Lisa Dewitt DO PCP - General 08/12/13 07/15/14 [facility] 2019 [place] [address] documented as of this encounter
--- OUTSIDE RECORDS SUMMARY | 2022-01-23 08:27 | XMS_ITS | Encounter Summary ---
:1980 Author Organization [place] Address [facility] [place] [address] Care Team Providers Name Role Phone Bebeto Roth MD Unavailable Astrid Rios PA-C Unavailable Keri Elias MD Primary Care Provider Unavailable Reason for Visit Reason Onset Date Comments Care f/u Erroneous encounter-disregard 01/27/2017 Encounter Details Date Type Department Care Team Description 01/27/2017 Office Visit [facility] Keri Elias Medicine Clinic MD [place] ENCOUNTER--DISREGARD [address], (Primar y Dx) [address] [place] [address] Social History Tobacco Use Types Packs/Day Years Used Date Smoking Tobacco: Never Smokeless Tobacco: Never Alcohol Use Standard Drinks/Week Comments No 0 (1 standard drink = 0.6 oz pure alcoho l) Sex Assigned at Date Recorded Not on file documented as of this encounter Last Filed Vital Signs Vital Sign Reading Time Taken Comments Blood Pressure 114/76 01/27/2017 2:15 PM MISSILE FACILITIES REPAIRER Pulse 99 01/27/2017 2:15 PM MISSILE FACILITIES REPAIRER Temperature 36.7 ??C (98 ??F) 01/27/2017 2:15 PM MISSILE FACILITIES REPAIRER Respiratory Rate - - Oxygen Saturation 100% 01/27/2017 2:15 PM MISSILE FACILITIES REPAIRER Inhaled Oxygen Concentration - - Weight 79.5 kg (175 lb 3.2 oz) 01/27/2017 2:15 PM MISSILE FACILITIES REPAIRER w / shoes Height - - Body Mass Index 31.04 08/05/2016 8:14 AM CDT documented in this encounter Progress Notes Tristan Pham CMA - 01/27/2017 2:57 PM CST This encounter was opened in error. Please disregard. ILE FACILITIES REPAIRER documented in this encounter Plan of Treatment Not on filedocumented as of this encounter Visit Diagnoses Diagnosis ERRONEOUS ENCOUNTER--DISREGARD - Primary documented in this encounter Care Teams Broke Beater Operator Relationship Specialty Start Date End Date Keri Elias PCP - General Family Practice 03/12/15 9 MD Ira Glez David Wayne, MD Orthopedics 07/09/[address] [place] [address] Astrid Rios PA-C Physician Measurer Machine Physician Measurer Machine - 07/09/14 Surgical documented as of this encounter
--- OUTSIDE RECORDS SUMMARY | 2022-01-23 08:27 | XMS_ITS | Encounter Summary ---
:1980 Author Organization [place] Address [address] [facility] [place] [address] Care Team Providers Name Role Phone Bebeto Roth MD Unavailable Astrid Rios PA-C Unavailable Keri Elias MD Primary Care Provider Unavailable Reason for Visit Reason Onset Date Comments Refill Request 10/03/2016 Ondansetron 4mg Encounter Details Date Type Department Care Team Description 10/03/2016 Refill [facility] Jasmin Elias Refill Request Clinic MD [place] (Ondansetron 4mg) [facility] [address], [address] [place], [place] [address] Social History Tobacco Use Types Packs/Day Years [...] route it to the [facility] pool to inform the patient and the pharmacy. Kristina Stafford documented in this encounter Plan of Treatment Not on filedocumented as of this encounter Visit Diagnoses Diagnosis Nausea Nausea alone documented in this encounter Care Teams Retail Tire Sales Manager Relationship Specialty Start Date End Date Keri Elias PCP - General Family Practice 03/12/15 9 MD Ira Glez David Wayne, MD Orthopedics 07/09/[address] [place] [address] Astrid Rios PA-C Physician Pathology Technician Physician Pathology Technician - 07/09/14 Surgical documented as of this encounter
--- OUTSIDE RECORDS SUMMARY | 2022-01-23 08:27 | XMS_ITS | Encounter Summary ---
:1980 Author Organization [place] Address [address] [facility] [place] [address] Care Team Providers Name Role Phone Bebeto Roth MD Unavailable Astrid Rios PA-C Unavailable Keri Elias MD Primary Care Provider Unavailable Reason for Visit Reason Comments Care NOB Encounter Details Date Type Department Care Team Description 08/05/2016 Office Visit [facility] Keri Elias Vertigo (Primary Dx); Medicine Clinic MD [place] test positive; [address], [facility] ; [address] Encounter for supervision of normal first in first trimester; [place], [place] [address] High-risk , first t [facility] [phone] Social History Tobacco Use Types Packs/Day Years [...] PM CDT Thank you for coming to [facility]! - If you had lab testing [...] following numbers --f your referral is for [facility] please call [phone] --If your referral is to outside [facility] please call the clinic number ([phone]) and ask for your team primary care pediatrician. - If you need any refills please call your pharmacy and they will contact us. - If you have any concerns about today's visit or wish to schedule another appointment please call our office [phone] (8-5:00 M-F) - If you have urgent medical concerns call [phone] at any time of the day. - If you have a medical emergency please call [phone]. Because you are , we have additional resources for you: - You may call Martha Barfield, our OB coordinator at [phone] during normal business hours, for non-urgent questions about your . - Immediate OB help is also available 24 hours a day, seven days a week via the [facility] at [phone]. Reminders: Before 14 weeks: dating ultrasound This [...] or baby. Again, thank you for choosing [facility]. Please let us know how we can best partner with you to improve your and your family's health. Thank you for coming to [facility]! - If you had lab testing today [...] following numbers --f your referral is for [facility] please call [phone] --If your referral is to outside [facility] please call the clinic number ([phone]) and ask for your team primary care pediatrician. - If you need any refills please call your pharmacy and they will contact us. - If you have any concerns about today's visit or wish to schedule another appointment please call our office [phone] (8-5:00 M-F) - If you have urgent medical concerns call [phone] at any time of the day. - If you have a medical emergency please call 151. Because you are , we have additional resources for you: - You may call Martha Barfield, our OB coordinator at [phone] during normal business hours, for non-urgent questions about your . - Immediate OB help is also available 24 hours a day, seven days a week via the [facility] at [phone]. Reminders: Before 14 weeks: dating ultrasound This [...] or baby. Again, thank you for choosing [facility]. Please let us know how we [...] No Down's syndrome No Lucas-Sach's disease No [place]po[place]'s chorea No Any other inherited genetic or [...] 0 ??? fluticasone (FLONASE) 50 MCG/ACT spray [place] 1-2 sprays into both nostrils daily 16 [...] type and screen (08/05/2016 2:21 PM CDT) [facility] gist Method Time Signature ABO O [facility] RH(D) Pos [facility] Antibody Neg [facility] Test Valid [facility] Specimen 08/08/2016 [facility] [place] Specimen Anatomical Collection Method Collection Time Receive d Time (Source) Location / / Volume Laterality Blood specimen VENOUS BLOOD / 08/05/2016 2:21 PM 08/05 2:26 (specimen) Unknown CDT PM CDT Keri Elias MD LAB - BLOOD BANK TEST ORDER Performing Organization Address City/State/ZIP Code Phon e Number [facility] [address] [place], [place] [phone] [place] [address] Varicella Zoster Virus Antibody IgG (08/05/2016 11:55 AM CDT) P athologist Signature Varicella 0.4 0.0 - 0.8 [facility] Zoster Virus [place] [facility]ICAL Antibody IgG [facility] Comment: Negative, suggests no immunologic [...] Address City/State/ZIP Code Phon e Number [address] Rubella Antibody IgG Quantitative (08/05/2016 11:55 AM CDT) Analysis Performed At Patho logist Time Signature Rubella Antibody 24 IU/mL [facility] OF IgG Quantitative [facility] Comment: Positive. ??Suggests previous exposure o r [...] LAB - BLOOD ORDERABLES Performing Organization Address City/[facility]/ZIP Code Phon e Number [address] HIV Antigen Antibody Combo (08/05/2016 11:55 AM CDT) Patholo gist Method Time Signature HIV Antigen Nonreactive NR [facility] OF [facility] HIV-1 p24 Ag & HIV-1/HIV-2 Ab Not Detected [facility] Combo [facility] Specimen Anatomical Collection Method Collection Time Receive d Time (Source) Location / / Volume Laterality Blood specimen VENOUS BLOOD / 08/05/2016 11:55 017 (specimen) Unknown AM CDT 12:00 PM CDT Keri Elias MD LAB - BLOOD ORDERABLES Performing Organization Address City/State/ZIP Code Phon e Number [facility] [address] [place], [place] [phone] [place] [address] Anti Treponema (08/05/2016 11:55 AM CDT) Analysis Performed At Patho logist Time Signature Treponema Negative NEG [facility] OF pallidum [facility] Antibody CENTER [facility] Specimen Anatomical Collection Method Collection Time Receive d Time (Source) Location / / Volume Laterality Blood specimen VENOUS BLOOD / 08/05/2016 11:55 017 (specimen) Unknown AM CDT 12:00 PM CDT Keri Elias MD LAB - BLOOD ORDERABLES Performing Organization Address City/State/ZIP Code Phon e Number [address] (ABNORMAL) Hepatitis B Surface Antibody (08/05/2016 11:55 AM CDT) [facility] Method Time Signature Hepatitis B 378.74 (H) <8.00 [facility] OF Surface m[IU]/mL [facility] Comment: Reactive, Patient is considered to be [...] LAB - BLOOD ORDERABLES Performing Organization Address City/[facility]/ZIP Code Phon e Number [phone] [place] [address] Hepatitis B surface antigen (08/05/2016 11:55 AM CDT) [facility] Method Time Signature Hep B Surface Nonreactive NR [facility] Specimen Anatomical Collection Method Collection Time Receive d Time (Source) Location / / Volume Laterality Blood specimen VENOUS BLOOD / 08/05/2016 11:55 017 (specimen) Unknown AM CDT 12:00 PM CDT Keri Elias MD LAB - BLOOD ORDERABLES Performing Organization Address City/State/ZIP Code Phon e Number [phone] [place] [address] HPV High Risk Types DNA Cervical (08/05/2016 9:36 AM CDT) Component Value Ref Test Analysis Performed At [facility] Method Time Signature HPV 16 DNA Negative NEG [facility] HPV 18 DNA Negative NEG [facility] Other HR HPV Negative NEG [facility] Final This patient's sample is negative for HPV DNA. [facility] Diagnosis (Note) OF [place] METHODOLOGY: ??The Jeff mile 4800 system uses automated extraction, MEDICAL simultaneous amplification of HPV (L1 region) and beta-globi n, [facility] followed by ??real time detection of [...] and its performance characteristics determined by the [facility], [facility]. It has not been cleared or approved by the FDA. The laboratory is regulated under CLIA as qualified to perform high-complexity testing. This test is used for clinical purp oses. It should not be regarded as investigational or for research. Specimen Cervical Cells [facility] Description [id number] OF [facility] Specimen Anatomical Collection Method Collection Time Receive d Time (Source) Location / / Volume Laterality Cervical Cells 08/05/2016 9:36 AM 017 CDT 12:04 PM CDT Keri Elias MD LAB - BLOOD ORDERABLES Performing Organization Address City/State/ZIP Code Phon e Number [facility] [address] [place], [place] [phone] [place] [address] Pap imaged thin layer screen with HPV - recommended age 30 - 65 years (select HPV order below) (08/05/2016 9:36 AM CDT) Component Value Ref Test Analysis Performed At [facility] Range Method Time Signature PAP NIL TITA Young Report COPATH Acc#: [id number] ?? Signed: 08/09/2016 13:30 ?? MR#: [id number] SPECIMEN/STAIN PROCESS: Pap imaged thin layer [...] rcinomas or other cancers. TESTING LAB LOCATION: ??[facility], [facility], [address] [place] [phone], Processed and screened at [facility] nt, [facility] Specimen Anatomical Collection Method Collection Time Receive d Time (Source) Location / / Volume Laterality Cervical Cells 08/05/2016 9:36 AM 017 9:15 CDT AM CDT Keri Elias MD LAB - OPTIME CLINICAL SPECIM EN Performing Organization Address City/State/ZIP Code Phon e Number COPATH Chlamydia trachomatis PCR (08/05/2016 9:34 AM CDT) Component Value Ref Test Analysis Performed At [facility] gist Range Method Time Signature Specimen Cervical [facility] Chlamydia Negative NEG [facility] OF [facility] Negative for C. trachomatis rRNA by trash collector truck driver mediated amplification. [place] MEDICAL PCR A negative result by transc ription mediated amplification does not preclude the [facility] presence of C. trachomatis infection [...] Organization Address City/State/ZIP Code Phon e Number [phone] [place] [address] [facility] [place] Neisseria gonorrhoeae PCR (08/05/2016 9:34 AM CDT) Component Value Ref Test Analysis Performed At Patholo gist Range Method Time Signature Specimen Cervical [facility] N Gonorrhea Negative NEG [facility]ITY PCR Negative for N. gonorrhoeae rRNA by transcripti on mediated amplification. [place] [facility]ICAL A negative result by transc ription mediated amplification does not preclude the [facility] presence of N. gonorrhoeae infection [...] MICRO GENERAL ORDERABL ES Performing Organization Address City/[facility]/ZIP Code Phon e Number [address] (ABNORMAL) Hemoglobin (HGB) ([facility]) (08/05/2016 9:09 AM CDT) P athologist Signature Hemoglobin 17.8 (H) 11.7 - 15.7 [facility] g/dL MEDICINE LABDAQ Specimen Anatomical Collection Method Collection Time Receive d Time (Source) Location / / Volume Laterality Blood specimen VENOUS BLOOD / 08/05/2016 9:09 AM 08/05 9:09 (specimen) Unknown CDT AM CDT Keri Elias MD LAB - LABDAQ Performing Organization Address City/State/ZIP Code Phon e Number [address] [address] LAB[facility]Q documented in this encounter Visit Diagnoses Diagnosis Vertigo - Primary Dizziness and giddiness test positive examination or test, positive result First trimester Encounter for supervision of normal firs t in first trimester Supervision of normal first High-risk , first trimester documented in this encounter Care Teams Brusher Machine Relationship Specialty Start Date End Date Keri Elias PCP - General Family Practice 03/12/15 9 MD Ira Glez David Wayne, MD Orthopedics 07/09/[address] [place] [address] Astrid Rios PA-C Physician Hospice Superintendent Physician Hospice Superintendent - 07/09/14 Surgical documented as of this encounter
--- OUTSIDE RECORDS SUMMARY | 2022-01-23 08:27 | XMS_ITS | Encounter Summary ---
:1980 Author Organization [place] Address [address] [facility] [place] [address] Care Team Providers Name Role Phone Bebeto Roth MD Unavailable Astrid Rios PA-C Unavailable Keri Elias MD Primary Care Provider Unavailable Reason for Visit Reason Onset Date Comments Call To Schedule Appointment 07/05/2016 NOB Appt Re quest Encounter Details Date Type Department Care Team Description 07/05/2016 Telephone Echo's Family Keri Elias Call To Schedule Medicine Clinic MD [place] Appointment (NOB Appt [address], Request ) [address] [place], [place] [address] Social History Tobacco Use Types [...] filedocumented in this encounter Care Teams Production Material Coordinator Relationship Specialty Start Date End Date Keri Elias PCP - General Family Practice 03/12/15 9 MD Ira Glez David Wayne, MD Orthopedics 07/09/14 [facility] [place], [place] [phone] [place] [address] Astrid Rios PA-C Physician Business Change Manager Physician Business Change Manager - 07/09/14 Surgical documented as of this encounter
--- OUTSIDE RECORDS SUMMARY | 2022-01-23 08:27 | XMS_ITS | Encounter Summary ---
:1980 Author Organization [place] Address [address] [place] [address] Care Team Providers Name Role Phone Bebeto Roth MD Unavailable Astrid Rios PA-C Unavailable [facility] Primary Care Provider + Reason for Visit [facility] (Routine) - Closed Specialty Diagnoses / Procedures Referred By Contact Refer red To Contact Bebeto Roth MD ZZ [facility] MANJULA COSTA [address] [place] [address] [address] SM[address] [place], [place] [phone] [place] [phone] Phone: Fax: Referral ID Status Reason Start Date Expiration Date Visits Requ ested Visits Authorized NYA/HP/LBP Closed 08/04/2014 02/12/2015 20 18 Encounter Details Date Type Department Care Team Description 08/04/2014 Therapy Visit [place] for Evan Alejandra, Pain in thoracic spine (Primary Dx); Athletic Medicine - PT Other orthopedic aftercare(V54.89); Manjula Costa [facility] MANJULA COSTA Scoliosis PhysicalTherapy [address] [place] [address] [address] [place] [phone] Social History Tobacco Use Types Packs/Day [...] 100% Right: 50% Rotation: Left: Right: Side Sawyer: Left: Right: Strength: sore strength = 4/5, [...] Sheet for this information) Short term and jail goals: (See Goal Flow Sheet for this [...] Name Priority Date/Time Associated Diagnosis Comme nts [facility] NEUROMUSCULAR Routine 08/07/2014 12:10 PM Pain in thoracic RE-EDUCATION CDT spine Other orthopedic aftercare(V54.89 ) Scoliosis [facility] THERAPEUTIC EXERCISES Routine 08/07/2014 12:10 PM Pain in thoracic CDT spine Other orthopedic aftercare(V54.89 ) Scoliosis documented in this encounter Visit Diagnoses Diagnosis Pain in thoracic spine - Primary Other orthopedic aftercare(V54.89) Other orthopedic aftercare Scoliosis Scoliosis (and kyphoscoliosis), idiopath ic documented in this encounter Care Teams Director Of Research Relationship Specialty Start Date End Date Clinic - Angela Laboy PCP - General 07/16/[address] [place] [address] 2019 [place] [address] Bebeto Roth MD Orthopedics 07/09/14 [facility] [place], [place] [id number] [place] [address] Astrid Rios PA-C Physician Sole Sewer Hand Physician Sole Sewer Hand - 07/09/14 Surgical documented as of this encounter
--- OUTSIDE RECORDS SUMMARY | 2022-01-23 08:27 | XMS_ITS | Encounter Summary ---
:1980 Author Organization [place] Address [address] [place] [address] Care Team Providers Name Role Phone Bebeto Roth MD Unavailable Astrid Rios PA-C Unavailable Keri Elias MD Primary Care Provider Unavailable Reason for Visit Reason Comments Care ob care Refill Request erika Encounter Details Date Type Department Care Team Description 10/11/2016 Office Visit Melisa Sauceda c are, second trimester (Primary Dx); Medicine Clinic MD Lois Nausea; [address] [place] [address], [address] [place] [address] [address] [facility] [address] [id number] 7 [place], [place] [phone] [id number] Social History Tobacco Use Types Packs/Day Years [...] one month Thank you for coming to [facility] today. Lab Testing: If you had lab testing today and your results are reassuring or normal they will be mailed to you or sent through [employer]ob[employer] within 7 days. If the lab tests need quick action we will call you with the results. The phone number we will call with results is # [phone] (home) . If this is not the best numberplease call our clinic and change the number. Medication Refills: If you need any refills please call your pharmacy and they will contact us. If you need to poultry picker your refill at a new pharmacy, please contact the new pharmacy directly. The new pharmacy will help you get your medications transferred faster. Scheduling: If you have any concerns about today's visit or wish to schedule another appointment please call ouroffice during normal business hours [phone] (8- 5:00 M-F) If a referral was made to a [facility] and you don't get a call from [facility] please call [phone]. If a Mammogram was ordered for you at [facility] call [phone] to schedule or change yourappointment. If you had an XRay/CT/Ultrasound/MRI ordered the number is [phone] to schedule or change your radiology appointment. Medical Concerns: If you have urgent medical concerns please call [phone] at any time of the day. documented [...] . The patient plans to deliver at [facility] with myself and/or OB partner. care at [facility]. - Patient will continue taking [...] the final plan. Melisa Salvador MD PGY3 [facility] Installer Repairer Pager: [phone] Steffanie Parker MD - 10/11/2016 3:40 PM CDT Preceptor Attestation: Patient seen and discussed with the resident. Assessment and plan reviewed with resident and agreedupon. Supervising Physician: Steffanie Parker MD [facility] documented in this encounter Plan of Treatment Not on filedocumented as of this encounter Results US OB 14 +WKS SINGLE OR FIRST GESTATION (IN CLINIC) (10/19/2016) Anatomical Region Laterality Modality Abdomen/Pelvis Other Narrative 10/19/2016 2nd/3rd Trimester Ultrasound Report ?? CONCLUSIONS: US findings are consistent with LMP EGA by LMP 20w0d ??VINCENT by LMP :Mar 08, 2 018 EGA by this U/S: [id number] (+/- 7days): ED D by this ??U/S: 03/07/17 ? EFW 345.95g, 0lb 12oz ??Weight Percentil e: 63.9%tile Follow up: Routine follow up as needed. PCP: Keri Elias Physician/Irrigator: Shruthi Ruelas iams Indications: Standard Exam and brittany vey LMP: Patient's last menstrual period was 06/01/2016. ?? FHR: 153 BPM ??Fluid: normal TJ: 10.83 Placenta Location: Posterior and Fundal number:1 ??Presentation: Cephalic Technique: Transabdominal Machine: DrDoctor Pro 5 SURVEY ? Cerebellum ? Intracranial [...] cm ?? 20wks 3d ?? Shruthi Bland [facility] RVT Attestation of Reviewer. I reviewed the images and agree with eliu singer interpretation above. August Ontiveros MD Steffanie Parker MD IMG US ORDERABLES documented in this encounter Visit Diagnoses Diagnosis care, second trimester - Primar y Nausea Nausea alone Vertigo Dizziness and giddiness care, second trimester documented in this encounter Care Teams Petroleum Refining Firer Relationship Specialty Start Date End Date Keri Elias PCP - General Family Practice 03/12/15 9 MD Ira Glez David Wayne, MD Orthopedics 07/09/14 [facility] [place] [address] Astrid Rios PA-C Physician Filament Maker Physician Filament Maker - 07/09/14 Surgical documented as of this encounter
--- OUTSIDE RECORDS SUMMARY | 2022-01-23 08:27 | XMS_ITS | Encounter Summary ---
:1980 Author Organization [place] Address [address] [facility] [place] [address] Care Team Providers Name Role Phone Bebeto [...] glucose tolerance, antepartum; [address] test positive [place] [id number] Social History Tobacco Use Types Packs/Day Years [...] Aerobic Bacterial - Urinalysis, Micro If (UA) ([facility]) 3. Abnormal maternal glucose tolerance, antepartum Pt [...] Component Value Ref Test Analysis Performed At [facility] gist Range Method Time Signature Specimen Midstream Urine INFECTIOUS Description DISEASE DIAGNOSTIC LABORATORY Special Specimen 12/14/2016 [facility] received in 5:38 PM CDT [facility] preservative [facility] Culture Micro 50,000 to 100,000 colonies/mL 2016 [...] GENERAL ORDERABL ES Performing Organization Address City/[facility]/ZIP Code Phon e Number INFECTIOUS DISEASES [address] [place] [address] DIAGNOSTIC LABORATORY, [facility] INFECTIOUS DISEASE [address] [place] [address], [facility] DIAGNOSTIC LABORATORY [address] [address], [facility] Anti Treponema (12/14/2016 1:01 PM CDT) athologist Signature Treponema Negative NEG^Negati 12/15/2016 [facility]44 AM CDT CLINICS Antibody [place] Specimen Anatomical Collection Method Collection Time Receive d Time (Source) Location / / Volume Laterality Blood specimen VENOUS BLOOD / 12/14/2016 1:01 PM 12/14 1:06 (specimen) Unknown CDT PM CDT Keri Elias MD LAB - BLOOD ORDERABLES Performing Organization Address City/[facility]/ZIP Code Phon e Number [facility] [place] [address] [place] [address] 275 (ABNORMAL) Hemoglobin (HGB) ([facility]) (12/14/2016 9:32 AM CDT) athologist [facility] Hemoglobin 9.3 (L) 11.7 - 15.7 [facility] g/dL MEDICINE [facility] Specimen (Source) Anatomical Collection Method Collection Time Re ceived Time Location / / Volume Laterality Blood specimen VENOUS BLOOD / 12/14/2016 9:32 AM (specimen) Unknown CDT Keri Elias MD LAB - LAB[facility]Q Performing Organization Address City/[facility]/ZIP Code Phon e Number [facility] MEDICINE [address] [place], [place] [address] [facility] (ABNORMAL) Urinalysis, Micro If (UA) ([facility]) (12/14/2016 9:32 AM CDT) [facility] gist Method Time Signature Specific [place] 1.010 1.005 - [facility] Urine 1.030 FAMILY MEDICINE [facility] pH Urine 6.0 4.5 - 8.0 [facility] Leukocyte 3+ (A) NEGATIVE [place] Esterase UR [facility]IC[facility] Nitrite Urine Positive (A) NEGATIVE [facility] Protein UR 2+ (A) NEGATIVE [facility] Glucose Urine Trace (A) NEGATIVE [facility] Ketones Urine Trace (A) NEGATIVE [facility] Urobilinogen 2.0 E.U./dL 0.2 E.U./dL [facility] mg/dL (A) FAMILY [facility]ICINE [facility] Bilirubin UR 1+ (A) NEGATIVE [facility] Blood UR 2+ (A) NEGATIVE [facility] Specimen Anatomical Collection Method Collection Time Receive d Time (Source) Location / / Volume Laterality Urine specimen 12/14/2016 9:32 AM 017 9:32 (specimen) CDT AM CDT Keri Elias MD LAB - LABDAQ Performing Organization Address City/[facility] Code Phon e Number [facility] [address] [place] [phone] [facility] (ABNORMAL) Glucose Challenge 1 Hr ([facility]) (12/14/2016 9:32 AM CDT) P athologist Signature Glu Gest 165 (H) 0 - 129 [facility] FAMILY Screen 1hr 50g MEDICINE [facility] Specimen (Source) Anatomical Collection Method Collection Time Re ceived Time Location / / Volume Laterality Blood specimen VENOUS BLOOD / 12/14/2016 9:32 AM (specimen) Unknown CDT Keri Elias MD LAB - LAB[facility]Q Performing Organization Address City/State/[facility] Phon e Number [facility] [address] [place] [phone] [facility] documented in this encounter Visit Diagnoses Diagnosis Supervision of high risk , ante - Primary Dysuria Abnormal maternal glucose tolerance, ant epartum test positive examination or test, positive result documented in this encounter Care Teams Technology Sales Specialist Relationship Specialty Start Date End Date Keri Elias PCP - General Family Practice 03/12/15 MD Ira Abrams, Bebeto Hartman MD Orthopedics 07/09/14 [id number] [place] [address] Astrid Rios PA-C Physician Superintendent System Operation Physician Superintendent System Operation - 07/09/14 Surgical documented as of this encounter
--- OUTSIDE RECORDS SUMMARY | 2022-01-23 08:27 | XMS_ITS | Encounter Summary ---
:1980 Author Organization [place] Address [facility] [place] [address] Care Team Providers Name Role Phone Bebeto Roth MD Unavailable Astrid Rios PA-C Unavailable Keri Elias MD Primary Care Provider Unavailable Encounter Details Date Type Department Care Team Description 07/27/2016 Radiant Appointment Health Imaging Bebeto Roth eled (Error) Center Una Hartman MD [id number] [facility] 1st Floor [address] [place] [phone] Social History Tobacco Use Types Packs/Day Years [...] on filedocumented in this encounter Care Teams Caddy/Caddie Supervisor Relationship Specialty Start Date End Date Keri Elias PCP - General Family Practice 03/12/15 9 MD Ira Glez David Wayne, MD Orthopedics 07/09/14 [facility] [place] [address] Astrid Rios PA-C Physician Brim Raiser Physician Brim Raiser - 07/09/14 Surgical documented as of this encounter
--- OUTSIDE RECORDS SUMMARY | 2022-01-23 08:27 | XMS_ITS | Encounter Summary ---
:1980 Author Organization [place] Address [facility] [place] [address] Care Team Providers Name Role Phone Bebeto Roth MD Unavailable Astrid Rios PA-C Unavailable [facility] Primary Care Provider + Reason for Referral [facility] - Closed Specialty Diagnoses / Procedures Referred By Contact Refer red To Contact Diagnoses Kyphoscoliosis Astrid Rios PA-C [facility] [address] [place] [phone] Referral ID Status Reason Start Date Expiration Date Visits Requ ested Visits Authorized [id number] Closed 07/16/2014 01/12/2015 1 1 Reason for Visit Reason Comments RECHECK s/p spinal fusion 09/3009, ba ck cracking Encounter Details Date Type Department Care Team Description 07/16/2014 Office Visit Orthopaedic Clinic Astrid Rios Kyphoscoliosis (Primary [place] MELISA Dx) Rehabilitation [facility] 1st Floor, [address] [place] [address] [address] [facility] [address] [facility] [phone] [place] [address] Social History Tobacco Use Types [...] back cracking Primary MD: sawyer Ref. MD: [employer] Obiee Developer? 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 Date of injury: Type of injury: Date [...] ic documented in this encounter Care Teams Log Manager Relationship Specialty Start Date End Date Clinic - Angela Laboy PCP - General 07/16/[address] [place] [address] [address] [place] [address] Bebeto Roth MD Orthopedics 07/09/[address] [facility] [place] [address] Astrid Rios PA-C Physician Mold Car Pusher Physician Mold Car Pusher - 07/09/14 Surgical documented as of this encounter
--- OUTSIDE RECORDS SUMMARY | 2022-01-23 08:27 | XMS_ITS | Encounter Summary ---
:1980 Author Organization [place] Address [address] [facility] [place] [address] Care Team Providers Name Role Phone Bebeto Roth MD Unavailable Astrid Rios PA-C Unavailable Keri Elias MD Primary Care Provider Unavailable Reason for Visit Reason Comments Care BALA Encounter Details Date Type Department Care Team Description 11/10/2016 Office Visit [facility] Melisa Supervisio n of [facility] MD Lois risk , [address] [place] [address], [address] [place] [address] [address] [place] [address] [id number] 7 [place], [place] [phone] [address] Social History Tobacco Use Types Packs/Day Years [...] . The patient plans to deliver at [facility] with myself and/or OB partner: ABRAM Cadena. care at [facility]. - Patient will continue taking vitamins [...] the final plan. Melisa Salvador MD PGY3 [facility] Resident Pager: [phone] Nicole Strickland MD - 11/10/2016 3:40 PM CDT Preceptor Attestation: Patient seen and discussed with the resident. Assessment and plan reviewed with resident and agreedupon. Supervising Physician: Nicole Strickland MD [facility] documented in this encounter Plan of Treatment Not on filedocumented as of this encounter Visit Diagnoses Diagnosis Supervision of high risk , ante documented in this encounter Care Teams Oil Spreader Operator Relationship Specialty Start Date End Date Keri Elias PCP - General Family Practice 03/12/15 9 MD Ira Glez David Wayne, MD Orthopedics 07/09/[address] [place] [address] Astrid Rios PA-C Physician Telesales Advisor Physician Telesales Advisor - 07/09/14 Surgical documented as of this encounter
--- OUTSIDE RECORDS SUMMARY | 2022-01-23 08:27 | XMS_ITS | Encounter Summary ---
:1980 Author Organization [place] Address [address] [facility] [place] [address] Care Team Providers Name Role Phone Bebeto Roth MD Unavailable Astrid Rios PA-C Unavailable Keri Elias MD Primary Care Provider Unavailable Reason for Visit Reason Comments Ultrasound Encounter Details Date Type Department Care Team Description 10/19/2016 Orders Only [place]Shruthi Verdin [facility] A trimester [address] [place] [address] [place] [phone] (Wo rk) Social History Tobacco Use [...] :Mar 08, 2017 EGA by this U/S: [id number] (+/- 7days): VINCENT by this U/S: 03/07/17 EFW 345.95g, 0lb 12oz Weight Percentile: 63.9%tile Follow up: Routine follow up as needed. PCP: Keri Elias Physician/Electroencephalographic Technologist: Shruthi Bland Indications: Standard Exam and survey LMP: Patient's last menstrual period was 06/01/2016. FHR: 153 BPM Fluid: normal TJ: 10.83 Placenta Location: Posterior and Fundal number:1 Presentation: Cephalic Technique: Transabdominal Machine: [employer] Pro 5 SURVEY Cerebellum Intracranial Anatomy Normal [...] FL: 3.34 cm 20wks 3d Shruthi Bland, [facility] RV[facility] Attestation of Reviewer. I reviewed the [...] :Mar 08, 018 EGA by this U/S: [id number] (+/- 7days): ED D by this ??U/S: 03/07/17 ? EFW 345.95g, 0lb 12oz ??Weight Percentil e: 63.9%tile Follow up: Routine follow up as needed. PCP: Keri Elias Physician/Electroencephalographic Technologist: Shruthi Ruelas iams Indications: Standard Exam and brittany vey LMP: Patient's last menstrual period was 06/01/2016. ?? FHR: 153 BPM ??Fluid: normal TJ: 10.83 Placenta Location: Posterior and Fundal number:1 ??Presentation: Cephalic Technique: Transabdominal Machine: [employer] Pro 5 SURVEY ? Cerebellum ? Intracranial [...] cm ?? 20wks 3d ?? Shruthi Bland [facility] RVT Attestation of Reviewer. I reviewed the images and agree with eliu singer interpretation above. August Ontiveros MD Steffanie Parker MD IMG US ORDERABLES documented in this encounter Visit Diagnoses Diagnosis care, second trimester documented in this encounter Care Teams Budget Report Clerk Relationship Specialty Start Date End Date Keri Elias PCP - General Family Practice 03/12/15 9 MD Ira Glez David Wayne, MD Orthopedics 07/09/14 [facility] [facility] [address] [place] [address] Astrid Rios PA-C Physician Commercial Art Instructor Physician Commercial Art Instructor - 07/09/14 Surgical documented as of this encounter
--- OUTSIDE RECORDS SUMMARY | 2022-01-23 08:27 | XMS_ITS | Encounter Summary ---
:1980 Author Organization [place] Address [address] [facility] [place] [address] Care Team Providers Name Role Phone Bebeto Roth MD Unavailable Astrid Rios PA-C Unavailable Keri Elias MD Primary Care Provider Unavailable Reason for Visit Reason Comments Ultrasound Encounter Details Date Type Department Care Team Description 08/03/2016 Orders Only [facility] Shruthi Bland Pregn tyler test Medicine Clinic A positive (Primary Dx) [address] [place] [address] [place] [phone] (Wo rk) Social History Tobacco Use [...] as needed. Patient:Azul Garg : PCP:Keri Elias Physician/Thread Tool Grinder Set Up Operator: Shruthi Bland Indications: Dating LMP: Patient's last menstrual period was 06/01/2016. Technique: Transabdominal Machine: GE Logiq Pro 5 GESTATION & EMBRYO SURVEY: Location of :Intrauterine Cardiac activity: Present at 183 bpm Yolk Sac: Normal Rt Ovary : Unobserved Lt Ovary : Unobserved Measurements: CRL: 2.63 cm 9 wks 3d Shruthi Bland, [facility] RVT Attestation of Reviewer. I [...] as needed. Patient:Azul Garg : PCP:Keri Elias Physician/Thread Tool Grinder Set Up Operator: Shruthi rojo Indications: Dating LMP: Patient's last menstrual period was 06/01/2016. ?? Technique: Transabdominal Machine: [employer] Logiq Pro 5 GESTATION & EMBRYO SURVEY: Location of :Intrauterine Cardiac activity: Present at 183 bpm Yolk Sac: Normal ? Rt Ovary : Unobserved Lt Ovary : Unobserved Measurements: ? CRL: ??2.63 cm 9 wks 3d Shruthi Bland RDMS RVT Attestation of Reviewer. I reviewed the images and agree with eliu singer interpretation above. August Ontiveros MD Mylene Vieira NUTTER UP FURNITURE DUSTER IMG US ORDERABLES documented in this encounter Visit Diagnoses Diagnosis test positive - Primary examination or test, positive result documented in this encounter Care Teams Stain Sprayer Relationship Specialty Start Date End Date Keri Elias PCP - General Family Practice 03/12/15 9 MD Ira Glez David Wayne, MD Orthopedics 07/09/[address] [place] [address] Astrid Rios PA-C Physician Marble Polisher Hand Physician Marble Polisher Hand - 07/09/14 Surgical documented as of this encounter
--- OUTSIDE RECORDS SUMMARY | 2022-01-23 08:27 | XMS_ITS | Encounter Summary ---
:1980 Author Organization [place] Address [address] [facility] [place] [address] Care Team Providers Name Role Phone Bebeto Roth MD Unavailable Astrid Rios PA-C Unavailable Keri Elias MD Primary Care Provider Unavailable Encounter Details Date Type Department Care Team Description 12/16/2016 Telephone [facility] [address] [place] [address], [address] [place], [place] [address] Social History Tobacco Use Types [...] on filedocumented in this encounter Care Teams Automobile And Property Underwriter Relationship Specialty Start Date End Date Keri Elias PCP - General Family Practice 03/12/15 9 MD Ira Glez David Wayne, MD Orthopedics 07/09/14 [facility] [address] Astrid Rios PA-C Physician Physical Metallurgist Physician Physical Metallurgist - 07/09/14 Surgical documented as of this encounter
--- OUTSIDE RECORDS SUMMARY | 2022-01-23 08:27 | XMS_ITS | Encounter Summary ---
:1980 Author Organization [place] Address [address] [facility] [place] [address] Care Team Providers Name Role Phone Bebeto Roth MD Unavailable Astrid Rios PA-C Unavailable Keri Elias MD Primary Care Provider Unavailable Reason for Visit Reason Comments Derm Problem Over Rt Eye X 3 weeks Encounter Details Date Type Department Care Team Description 08/05/2015 Office Visit [facility] Family Santa Painter M D Dermatitis (Primary Dx); Medicine Clinic XXX RESIGNED XXX Anxiety; [address] [place], [place], [place] Jovanni c attack; [address] [address] Encounter for medication refill [place], [place] [address] [phone] Social History Tobacco Use Types Packs/Day Years [...] an antihistamine you can buy at drug [employer]. It can make you sleepy, so use [...] on the open blisters ?? Joint pain? [phone] [employer]. [address] [place] [address]. All rights reserved. This information is not [...] the final plan. Santa Painter MD [facility] Painter Decorator Pager [phone] Payton Franks MD - 08/05/2015 4:19 PM CDT Preceptor Attestation: Patient seen and discussed with the resident. Assessment and plan reviewed with resident and agreedupon. Supervising Physician: Payton Franks MD [facility] documented in this encounter Plan of Treatment Not on filedocumented as of this encounter Visit Diagnoses Diagnosis Dermatitis - Primary Contact dermatitis and other eczema, due to unspecified cause Anxiety Anxiety state, unspecified Panic attack Panic disorder without agoraphobia Encounter for medication refill Issue of repeat prescriptions documented in this encounter Care Teams Supervisor Photocomposition Relationship Specialty Start Date End Date Keri Elias PCP - General Family Practice 03/12/15 9 MD Ira Glez David Wayne, MD Orthopedics 07/09/[address] [place] [id number] Astrid Rios PA-C Physician Field Secretary Physician Field Secretary - 07/09/14 Surgical documented as of this encounter
--- OUTSIDE RECORDS SUMMARY | 2022-01-23 08:27 | XMS_ITS | Encounter Summary ---
:1980 Author Organization [place] Address [facility] [place] [address] Care Team Providers Name Role Phone Meeta Dewittanda Primary Care Provider Encounter Details Date Type Department Care Team Description 06/05/2014 Radiant Appointment [facility] Bebeto Roth Scoliosis; CYNDI MICHELLE Hartman MD S/P spinal fusion [place] [id number] [place] [address] FLOOR, CLINIC 1 D [address] 6 [facility] [place] [address] [place], [place] [phone] (Work) [phone] Social History Tobacco Use Types Packs/Day Years [...] the cervicothoracic junction lying approximately 6 cm mergers and acquisitions consultant ior to the lumbosacral junction. Stable mild [...] the cervicothoracic junction lying approximately 6 cm mergers and acquisitions consultant ior to the lumbosacral junction. Stable mild [...] status documented in this encounter Care Teams Microfabrication Engineer Manager Relationship Specialty Start Date End Date Lisa Dewitt DO PCP - General 08/12/13 07/15/14 [facility] 2019 [place] [address] documented as of this encounter
--- OUTSIDE RECORDS SUMMARY | 2022-01-23 08:27 | XMS_ITS | Encounter Summary ---
:1980 Author Organization [place] Address [address] [place] [address] Care Team Providers Name Role Phone Bebeto Roth MD Unavailable Astrid Rios PA-C Unavailable Keri Elias MD Primary Care Provider Unavailable Reason for Visit Reason Comments Care BALA Refill Request Flonase Encounter Details Date Type Department Care Team Description 12/28/2016 Office Visit Narda Mcleod Jada, Vaginal itch ing (Primary Dx); Medicine Clinic Keri Glez MD Environmental allergies; [address] [place] [address] [place] [address] Social History Tobacco Use Types Packs/Day Years Used Date Smoking Tobacco: Never Smokeless Tobacco: Never Alcohol Use Standard Drinks/Week Comments No 0 (1 standard drink = 0.6 oz pure alcoho l) Sex Assigned at Date Recorded Not on file documented as of this encounter Last Filed Vital Signs Vital Sign Reading Time Taken Comments Blood Pressure 117/79 12/28/2016 8:13 AM DIRECTOR BUSINESS INTELLIGENCE Pulse 106 12/28/2016 8:13 AM DIRECTOR BUSINESS INTELLIGENCE Temperature 36.9 ??C (98.5 ??F) 12/28/2016 8:13 AM DIRECTOR BUSINESS INTELLIGENCE Respiratory Rate 20 12/28/2016 8:13 AM DIRECTOR BUSINESS INTELLIGENCE Oxygen Saturation 98% 12/28/2016 8:13 AM DIRECTOR BUSINESS INTELLIGENCE Inhaled Oxygen Concentration - - Weight 79.2 kg (174 lb 9.6 oz) 12/28/2016 8:13 AM DIRECTOR BUSINESS INTELLIGENCE Height - - Body Mass Index 30.93 [...] Refilled - fluticasone (FLONASE) 50 MCG/ACT spray; [place] 1-2 sprays into both nostrils daily Dispense: [...] with the final plan. Keri Elias MD CTOR BUSINESS INTELLIGENCE documented in this encounter Plan of Treatment Not on filedocumented as of this encounter Visit Diagnoses Diagnosis Vaginal itching - Primary Pruritus of genital organs Environmental allergies Allergic rhinitis, cause unspecified Frequent UTI Urinary tract infection, site not specif ied documented in this encounter Care Teams Correspondence Representative Relationship Specialty Start Date End Date Keri Elias PCP - General Family Practice 03/12/15 9 MD Ira Glez, Bebeto Hartman MD Orthopedics 07/09/14 [facility] [address] [address] Astrid Rios PA-C Physician Gusset Stitcher Physician Gusset Stitcher - 07/09/14 Surgical documented as of this encounter
--- OUTSIDE RECORDS SUMMARY | 2022-01-23 08:27 | XMS_ITS | Encounter Summary ---
:1980 Author Organization [place] Address [facility] [place] [address] Care Team Providers Name Role Phone Bebeto Roth MD Unavailable Astrid Rios PA-C Unavailable Keri Elias MD Primary Care Provider Unavailable Reason for Visit Reason Comments Care BALA Encounter Details Date Type Department Care Team Description 01/10/2017 Office Visit [facility] Family Keri Elias for condition (Primary Dx); Medicine Clinic MD [place] Recurrent UTI [address] [place] [address], [address] [place], [place] [address] Social History Tobacco Use Types Packs/Day Years Used Date Smoking Tobacco: Never Smokeless Tobacco: Never Alcohol Use Standard Drinks/Week Comments No 0 (1 standard drink = 0.6 oz pure alcoho l) Sex Assigned at Date Recorded Not on file documented as of this encounter Last Filed Vital Signs Vital Sign Reading Time Taken Comments Blood Pressure 108/68 01/10/2017 10:06 AM DIRECTOR DANCE Pulse 114 01/10/2017 10:06 AM DIRECTOR DANCE Temperature 36.7 ??C (98.1 ??F) 01/10/2017 10:06 AM DIRECTOR DANCE Respiratory Rate 18 01/10/2017 10:06 AM DIRECTOR DANCE Oxygen Saturation 99% 01/10/2017 10:06 AM DIRECTOR DANCE Inhaled Oxygen Concentration - - Weight 78.8 kg (173 lb 12.8 oz) 01/10/2017 10:06 AM DIRECTOR DANCE Height - - Body Mass Index 30.79 [...] I have performed today. Keri Elias MD CTOR DANCE Jeannette Mayer - 01/10/2017 10:00 AM CST Return OB visit 29-34 weeks ?? Subjective: Azul is a 36 year old female at 31w6d with a history of frequent UTIs who returns for care. VINCENT Mar 08, 2017. - Concerns today: Pt complains of some round ligament and low back pain after travelling for [employer]. Currently taking amoxicillin, no UTI or yeast [...] MS3, on behalf of Dr. Keri Elias. CTOR DANCE documented in this encounter Plan of Treatment Not on filedocumented as of this encounter Procedures Procedure Name Priority Date/Time Associated Diagnosis Comme nts HEMOGLOBIN A1C Routine 01/10/2017 11:51 AM Screening for Resul ts for this DIRECTOR DANCE condition procedure are i n the results section. URINE CULTURE Routine 01/10/2017 11:36 AM Recurrent UTI Result s for this DIRECTOR DANCE procedure are i n the results section. URINALYSIS(LABDAQ) Routine 01/10/2017 10:19 AM Screening for R esults for this DIRECTOR DANCE condition procedure are i n the results section. documented in this encounter Results Hemoglobin A1c (01/10/2017 11:51 AM DIRECTOR DANCE) P athologist Signature Hemoglobin A1C 4.6 4.3 - 6.0 01/10/2017 [facility] 4:02 PM DIRECTOR DANCE [facility] Specimen Anatomical Collection Method Collection Time Receive d Time (Source) Location / / Volume Laterality Blood specimen 01/10/2017 11:51 7 1:05 (specimen) AM DIRECTOR DANCE PM DIRECTOR DANCE Keri Elias MD LAB - BLOOD ORDERABLES Performing Organization Address City/[facility] Phon e Number [facility] [address] [place], [place] [phone] [place] [address] Urine Culture Aerobic Bacterial (01/10/2017 11:36 AM DIRECTOR DANCE) Component Value Ref Test Analysis Performed At [facility] Range Method Time Signature Specimen Midstream Urine INFECTIOUS Description DISEASE DIAGNOSTIC LABORATORY Special Specimen received 01/10/2017 [facility] in preservative 5:40 PM DIRECTOR DANCE [facility] Culture Micro >100,000 colonies/mL 01/11/2017 INFE CTIOUS mixed urogenital teresa 5:40 PM DIRECTOR DANCE [facility] DIAGNOSTIC LABORATORY Culture Micro Susceptibility 01/11/2017 INFECTIOUS testing not 5:40 PM DIRECTOR DANCE DISEASE routinely done DIAGNOSTIC LABORATORY Specimen (Source) Anatomical Collection Method Collection Time Re ceived Time Location / / Volume Laterality Examination of 01/10/2017 11:36 7 1:04 midstream urine AM DIRECTOR DANCE PM DIRECTOR DANCE specimen (procedure) Keri Elias MD LAB - MICRO GENERAL ORDERABL ES Performing Organization Address [facility] Phon e Number INFECTIOUS DISEASES [address] [place] [phone] DIAGNOSTIC LABORATORY, [facility] INFECTIOUS DISEASE [address] DIAGNOSTIC LABORATORY [address] (ABNORMAL) Urinalysis (UA) (Hector's) (01/10/2017 10:19 AM DIRECTOR DANCE) [facility] Method Time Signature Specific [place] 1.025 1.005 - [facility] Urine 1.030 [facility] pH Urine 6.5 4.5 - 8.0 [place] Leukocyte 1+ (A) NEGATIVE [place] Esterase UR [facility] Nitrite Urine Negative NEGATIVE [place] [facility] Protein UR 1+ (A) NEGATIVE [place] [facility] Glucose Urine Negative NEGATIVE [facility] LABDAQ Ketones Urine Trace (A) NEGATIVE [facility] LAB[facility]Q Urobilinogen 0.2 E.U./dL 0.2 E.U./dL [place] [facility] mg/dL [facility] LABDAQ Bilirubin UR Negative NEGATIVE [facility] LABDAQ Blood UR 1+ (A) NEGATIVE [facility] Specimen Anatomical Collection Method Collection Time Receive d Time (Source) Location / / Volume Laterality Urine specimen 01/10/2017 10:19 7 (specimen) AM DIRECTOR DANCE 10:19 AM DIRECTOR DANCE Keri Elias MD LAB - LABDAQ Performing Organization Address City/State/ZIP Code Phon e Number [facility] 2019 [address], [place] [address] [facility] documented in this encounter Visit Diagnoses Diagnosis Screening for condition - Primary Screening for unspecified condition Recurrent UTI Urinary tract infection, site not specif ied documented in this encounter Care Teams Sergeant Of Corrections Relationship Specialty Start Date End Date Keri Elias PCP - General Family Practice 03/12/15 9 MD Ira Glez David Wayne, MD Orthopedics 07/09/[address] [place], [place] [address] [place], [place] [id number] Astrid Rios PA-C Physician Head Of Mathematics Physician Head Of Mathematics - 07/09/14 Surgical documented as of this encounter
--- OUTSIDE RECORDS SUMMARY | 2022-01-23 08:27 | XMS_ITS | Encounter Summary ---
:1980 Author Organization [place] Address [facility] [place] [address] Care Team Providers Name Role Phone Lisa Dewitt DO Primary Care Provider Reason for Referral [facility] - Closed Specialty Diagnoses / Procedures Referred By Contact Refer red To Contact Diagnoses Scoliosis/kyphoscoliosis Bebeto Roth MD [facility] [address] [facility] [address] [place], [place] [address] Referral ID Status Reason Start Date Expiration Date Visits Requ ested Visits Authorized [id number] Closed 06/05/2014 12/02/2014 1 1 Reason for Visit Reason Comments Surgical Followup s/p spinal fusion 09/3009, pt . 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 Date of injury: none Date of surgery: [...] Order S [facility] PHYSICAL THERAPY Referral Routine Scoliosis/kyphoscoliosis Expected: 06/05/2014, REFERRAL Expires: 2015 (External-Prints) documented as of this encounter Visit Diagnoses Diagnosis Scoliosis/kyphoscoliosis - Primary Scoliosis (and kyphoscoliosis), idiopath ic documented in this encounter Care Teams Machine Set Up Relationship Specialty Start Date End Date Lisa Dewitt DO PCP - General 08/12/13 07/15/14 [facility] 2019 [place] [address] documented as of this encounter
--- OUTSIDE RECORDS SUMMARY | 2022-01-23 08:27 | XMS_ITS | Encounter Summary ---
:1980 Author Organization [place] Address [address] [facility] [place] [address] Care Team Providers Name Role Phone Bebeto Roth MD Unavailable Astrid Rios PA-C Unavailable Keri Elias MD Primary Care Provider Unavailable Reason for Visit Reason Onset Date Comments Refill Request 07/08/2016 Kirsten Encounter Details Date Type Department Care Team Description 07/08/2016 Refill [facility] Jasmin Elias Refill Request (Kirsten) Clinic MD [facility] [address] [place] [address], [address] [place], [place] [address] Social History Tobacco Use Types [...] phrase .smirefuse and route it to the [facility] to inform the patient and the pharmacy. Clementina Curtis CMA Telephone Encounter - Nuzhat Hong - 07/08/2016 4:05 PM CDT [facility] Family Medicine phone call message- patient requesting a refill: Full Medication Name: ondansetron (ZOFRAN) tablet 4 mg Pharmacy confirmed as [id number] - [place] - [address] AT [facility] [address] [place] [phone] : Yes Additional Comments: Patient was unable [...] message on voice mail? Yes Primary language: Haitian Police Magistrate needed? No Call taken on July 08, 2016 at 4:05 PM by Nuzhat Hong documented in this encounter Plan of Treatment Not on filedocumented as of this encounter Visit Diagnoses Diagnosis Nausea - Primary Nausea alone documented in this encounter Care Teams Business Intelligence Reporting Analyst Relationship Specialty Start Date End Date Keri Elias PCP - General Family Practice 03/12/15 9 MD Ira Glez David Wayne, MD Orthopedics 07/09/14 [facility]2 [address] [facility] [address] [place] [address] Astrid Rios PA-C Physician Battalion Chief Physician Battalion Chief - 07/09/14 Surgical documented as of this encounter
--- OUTSIDE RECORDS SUMMARY | 2022-01-23 08:28 | XMS_ITS | Encounter Summary ---
:1980 Author Organization [place] Address [address] [place] [address] Care Team Providers Name Role Phone Renate Lisa Primary Care Provider Reason for Visit Reason Comments Orders Encounter Details Date Type Department Care Team Description 01/28/2014 Orders Only Orthopaedic Clinic Astrid Rios, Damon (Primary [facility] PA-C Dx) Center [facility] 1st Floor, [address] [place] [address], [phone] [place] [id number] Social History Tobacco Use Types Packs/Day Years [...] Spine Complete 2 vw (01/29/2014 8:26 AM LIVE IN COMPANION) Anatomical Region Laterality Modality Spine Computed Radiography Specimen (Source) Anatomical Location Collection Method / Collectio n Time Received Time / Laterality Volume Impressions 01/29/2014 8:54 AM LIVE IN COMPANION IMPRESSION: 1. Redemonstration of mild dextroscolios is in the lower thoracic spine, with intact instrumentation follo wing posterior instrumented fusion from T10-L3. BABS MONTES MD Narrative 01/29/2014 8:54 AM LIVE IN COMPANION EXAMINATION: Spine 2 views DATE: 01/29/2014 HISTORY: [...] ic documented in this encounter Care Teams County Agent Relationship Specialty Start Date End Date Lisa Dewitt DO PCP - General 08/12/13 07/15/14 [facility] 2019 [place] [address] documented as of this encounter
--- OUTSIDE RECORDS SUMMARY | 2022-01-23 08:28 | XMS_ITS | Encounter Summary ---
:1982 Author Organization [place] Address [address] [facility] [address] Care Team Providers Name Role Phone Lisa Dewitt DO Primary Care Provider Reason for Visit Reason Onset Date Comments *-*INCOMING RECORDS*-* 01/28/2014 Encounter Details Date Type Department Care Team Description 01/28/2014 PRE VISIT Orthopaedic Clinic Astrid Rios, *-*INCOMING RECORDS*-* [facility] PA-C [facility] 1st Floor, [address] ORTHOPEDICS [address] [place] [address], [phone] [place] [id number] Social History Tobacco Use Types Packs/Day Years [...] Dr. Roth patient; records and imaging in [facility] HEN HELPER documented in this encounter Plan of Treatment Not on filedocumented as of this encounter Visit Diagnoses Not on filedocumented in this encounter Care Teams Pelletising Extruder Operator Relationship Specialty Start Date End Date Lisa Dewitt DO PCP - General 08/12/13 07/15/14 [facility] 2019 [place] [address] documented as of this encounter
--- OUTSIDE RECORDS SUMMARY | 2022-01-23 08:28 | XMS_ITS | Encounter Summary ---
:1980 Author Organization [place] Address [address] [facility] [place] [address] Care Team Providers Name Role Phone Caitlin Ballesteros MD Primary Care Provider Reason for Visit Reason Comments Torticollis seen 1 week ago for neck sti ffness, given meds, not getting any better Encounter Details Date Type Department Care Team Description 03/07/2013 Emergency [facility] Rona Perez, initial Emergency Department MD Nan encounter (Primary Dx) [address] [place] [phone] Social History Tobacco Use Types Packs/Day [...] Comments Blood Pressure 126/84 03/07/2013 11:50 AM JIGGER MACHINE OPERATOR Pulse 88 03/07/2013 11:50 AM JIGGER MACHINE OPERATOR Temperature 36.5 ??C (97.7 ??F) 03/07/2013 10:49 AM JIGGER MACHINE OPERATOR Respiratory Rate 16 03/07/2013 11:50 AM JIGGER MACHINE OPERATOR Oxygen Saturation 98% 03/07/2013 10:49 AM JIGGER MACHINE OPERATOR Inhaled Oxygen Concentration - - Weight - - Height - - Body Mass Index - - documented in this encounter Discharge Instructions AttachmentsThe following attachments cannot be sent through Care Everywhere.NECK SPASM, NO TRAUMA (TURKMEN)documented in this encounter Medications at Time [...] needed for muscle spasms fluticasone (FLONASE) 50 [place] 1-2 sprays 1 Package 11 11/1308/28/2013 MCG/ACT [...] from the original note were not included. [place] [facility] 16 on March 07, 2013 at [...] and Surgical History, and Social History inthe Wattage system. PAST MEDICAL HISTORY: Past Medical History [...] spasms FLUTICASONE (FLONASE) 50 MCG/ACT NASAL SPRAY [place] 1-2 sprays into both nostrils daily IBUPROFEN [...] diaphoretic. ED Course Procedures Patient assessed in [facility] 16 on March 07, 2013 at [...] IApril, am serving as a trained medical artist to document services personally performedby Nan Perez MD, based on the provider's statements to me. Inan, was physically present and have reviewed and verified the accuracy of this notedocumented by April Porter, medical artist. 03/07/2013 [facility] [place] EMERGENCY DEPARTMENT Nan Perez MD 03/07/13 1140 ER MACHINE OPERATOR documented in this encounter Plan of Treatment Not on filedocumented as of this encounter Visit Diagnoses Diagnosis Cervical strain, initial encounter - Emerald cotter documented in this encounter Care Teams Injection Operator Relationship Specialty Start Date End Date Caitlin Ballesteros MD PCP - General 10/08/11 08/11/13 documented as of this encounter
--- OUTSIDE RECORDS SUMMARY | 2022-01-23 08:28 | XMS_ITS | Encounter Summary ---
:1982 Author Organization [place] Address [facility] [place] [address] Care Team Providers Name Role Phone Lisa Dewitt DO Primary Care Provider Reason for Visit Reason Onset Date Comments Refill Request 12/31/2013 Encounter Details Date Type Department Care Team Description 12/31/2013 Telephone [facility] Lisa Dewitt DO Refill Request Clinic [place] [address], [address] [place] [address] [place], [place] [address] [phone] Social History Tobacco Use Types Packs/Day Years [...] back with any questions. Bunny Patino RN SHREDDER Telephone Encounter - Hillary Brumfield - 12/31/2013 11:39 AM CST [facility] Family Medicine phone call message- patient requesting a refill: Full Medication Name: minocycline (DYNACIN) 100 MG Capsule Pharmacy confirmed as [facility] [address] [place], [place] - [address] [place] [address] [phone] : Yes Additional Comments: Patient states her insurance does not cover the Tablets, she needs the prescription to read Capsule. OK to leave a message on voice mail? Yes Primary language: Faroese Hand Model needed? No Call taken on December 31, 2013 at 11:39 AM by Hillary Brumfield SHREDDER documented in this encounter Plan of Treatment Not on filedocumented as of this encounter Visit Diagnoses Diagnosis Acne vulgaris Other acne documented in this encounter Care Teams Flight Communications Operator Relationship Specialty Start Date End Date Lisa Dewitt DO PCP - General 08/12/13 07/15/14 [facility] 2019 [place] [address] documented as of this encounter
--- OUTSIDE RECORDS SUMMARY | 2022-01-23 08:28 | XMS_ITS | Encounter Summary ---
:1982 Author Organization [place] Address [address] [facility] [place] [address] Care Team Providers Name Role Phone Lisa Dewitt DO Primary Care Provider Reason for Visit Reason Onset Date Comments Refill Request 09/17/2013 Encounter Details Date Type Department Care Team Description 09/17/2013 Refill [facility] Medicine Lisa Dewitt DO Refill Request Clinic [place] [address] [place] [address], [address] [place] [address] [place] [address] [phone] Social History Tobacco Use Types Packs/Day Years [...] acne documented in this encounter Care Teams Buttonholer Relationship Specialty Start Date End Date Lisa Dewitt DO PCP - General 08/12/13 07/15/14 [facility] 2019 [place] [address] documented as of this encounter
--- OUTSIDE RECORDS SUMMARY | 2022-01-23 08:28 | XMS_ITS | Encounter Summary ---
:1980 Author Organization [place] Address Pending sale to [facility] [place] [address] Care Team Providers Name Role Phone Caitlin Ballesteros MD Primary Care Provider Reason for Visit Reason Comments Contraception Encounter Details Date Type Department Care Team Description 04/03/2012 Office Visit [facility] Caitlin Ballesteros MD Contraception (Primary Dx); Medicine Clinic [facility] Depo-Provera contraceptive s tatus [address], PRACTICE [address] [place] [address] [place] [address] [phone] (Wo rk) Social History Tobacco Use Types [...] Comments Blood Pressure 112/76 04/03/2012 2:40 PM CINEMA OPERATOR Pulse 106 04/03/2012 2:40 PM CINEMA OPERATOR Temperature 36.4 ??C (97.6 ??F) 04/03/2012 2:40 PM CINEMA OPERATOR Respiratory Rate - - Oxygen Saturation 100% 04/03/2012 2:40 PM CINEMA OPERATOR Inhaled Oxygen Concentration - - Weight 71.9 kg (158 lb 9.6 oz) 04/03/2012 2:40 PM CINEMA OPERATOR Height 157.5 cm (5' 2) 04/03/2012 2:40 PM CINEMA OPERATOR Body Mass Index 29.01 04/03/2012 2:40 PM CINEMA OPERATOR documented in this encounter Patient Instructions Patient InstructionsCaitlin Ballesteros MD - 04/03/2012 2:57 PM CST Thank you for coming to [facility]. If you had lab testing today and your results are reassuring or normal they will be be mailed to you within 7 days. If the lab tests need quick action we will call you with the results. The phone number we will call with results is # [phone] (home) . If this is not the best numberplease call our clinic and change the number. If you need any refills please call your pharmacy and they will contact us. If you have any concerns about today's visit or wish to schedule another appointment please call ouroffice during normal business hours [phone] (8- 5:30 M-F) If you have urgent medical concerns please call [phone] at any time of the day. If you have a medical emergency please call 911 Again thank you for choosing [facility] and please let us know how we can best partner with youto improve your and your family's health. MA OPERATOR documented in this encounter Progress Notes Keri Elias MD - 04/03/2012 3:06 PM CST Preceptor Attestation: Patient's case reviewed and discussed with resident. I agree with written assessment and plan of care Supervising Physician: Keri Elias MD MD [facility] Medicine MA OPERATOR Caitlin Ballesteros MD - 04/03/2012 2:48 [...] mL into the muscle every 3 months. MA OPERATOR documented in this encounter Plan of Treatment Not on filedocumented as of this encounter Procedures Procedure Name Priority Date/Time Associated Diagnosis Comme nts HCG QUALITATIVE Routine 04/03/2012 3:04 PM Contraception Resul ts for this URINE (LABDAQ) CINEMA OPERATOR procedure are in the results section. documented in this encounter Results HCG Qualitative Urine (UPT) (Narda) (04/03/2012 3:04 PM CINEMA OPERATOR) P athologist Signature HCG Qual Urine NEGATIVE [facility] Specimen Anatomical Collection Method Collection Time Receive d Time (Source) Location / / Volume Laterality Urine specimen 04/03/2012 3:04 PM 013 3:04 (specimen) CINEMA OPERATOR PM CINEMA OPERATOR Caitlin Ballesteros MD LAB - LABDAQ Performing Organization Address City/State/ZIP Code Phon e Number [facility] [address] [place] [address] [phone] LABDAQ [facility] [address] [place] [address] documented in this encounter Visit Diagnoses Diagnosis Contraception - Primary Unspecified contraceptive management Depo-Provera contraceptive status Surveillance of other previously prescri bed contraceptive method documented in this encounter Care Teams Oracle Drm Consultant Relationship Specialty Start Date End Date Caitlin Ballesteros MD PCP - General 10/08/11 08/11/13 documented as of this encounter
--- OUTSIDE RECORDS SUMMARY | 2022-01-23 08:28 | XMS_ITS | Encounter Summary ---
:1980 Author Organization [place] Address [address] [facility] [place] [address] Care Team Providers Name Role Phone Caitlin Ballesteros MD Primary Care Provider Reason for Visit Reason Onset Date Comments Pre Visit Planning - Done 06/26/2013 Encounter Details Date Type Department Care Team Description 06/26/2013 PRE VISIT Ear, Nose and Throat Gael Deshpande MD Pre Visit Planning - Clinic ENT CLINIC AND Done 8th Floor, Clinic 8A HEARING [facility] [address] [address] [facility] [place] [address] Social History Tobacco Use Types [...] have you been seen for this condition? [facility] Where and what testing has been done including: None ENT related surgeries in the past: No After the phone call: Request medical records: No From where: What date: Who did you speak to: Is the information already in the EMR? Yes Inform pt in case of any questions call Fabi at [phone]. documented in this encounter Plan of Treatment Not on filedocumented as of this encounter Visit Diagnoses Not on filedocumented in this encounter Care Teams Director Of Vital Statistics Relationship Specialty Start Date End Date Caitlin Ballesteros MD PCP - General 10/08/11 08/11/13 documented as of this encounter
--- OUTSIDE RECORDS SUMMARY | 2022-01-23 08:28 | XMS_ITS | Encounter Summary ---
:1980 Author Organization [place] Address [facility] [place] [address] Care Team Providers Name Role Phone Caitlin Ballesteros MD Primary Care Provider Reason for Referral - Closed Specialty Diagnoses / Procedures Referred By Contact Refer red To Contact Diagnoses Anxiety Panic attack Del Alavrez MD [address] [place] [address] Referral ID Status Reason Start Date Expiration Date Visits Requ ested Visits Authorized [id number] Closed 01/04/2013 07/03/2013 1 1 ITY CONTROL MICROBIOLOGY SUPERVISOR Reason for Visit Reason Comments Recheck Medication Hydroxyzine Encounter Details Date Type Department Care Team Description 01/01/2013 Office Visit [facility] Sonja Alvarez (Emerald cotter Dx); Medicine Clinic MD Del Panic attack [address], [address] [place], [place] [address] Social History Tobacco Use Types [...] Comments Blood Pressure 116/77 01/01/2013 4:04 PM QUALITY CONTROL MICROBIOLOGY SUPERVISOR Pulse 100 01/01/2013 4:04 PM QUALITY CONTROL MICROBIOLOGY SUPERVISOR Temperature 36.6 ??C (97.9 ??F) 01/01/2013 4:04 PM QUALITY CONTROL MICROBIOLOGY SUPERVISOR Respiratory Rate - - Oxygen Saturation 99% 01/01/2013 4:04 PM QUALITY CONTROL MICROBIOLOGY SUPERVISOR Inhaled Oxygen Concentration - - Weight 72.1 kg (159 lb) 01/01/2013 4:04 PM QUALITY CONTROL MICROBIOLOGY SUPERVISOR Height 156.7 cm (5' 1.7) 01/01/2013 4:04 PM QUALITY CONTROL MICROBIOLOGY SUPERVISOR Body Mass Index 29.36 01/01/2013 4:04 PM QUALITY CONTROL MICROBIOLOGY SUPERVISOR documented in this encounter Patient Instructions Patient InstructionsDel Spencer MD - 01/01/2013 4:46 PM QUALITY CONTROL MICROBIOLOGY SUPERVISOR [facility]: [phone] [facility] [place] [address] Patient to call to make appt Patients PCP needs to be changed From [facility] to [facility] ITY CONTROL MICROBIOLOGY SUPERVISOR documented in this encounter Progress Notes Figueroa Swain MD - 01/01/2013 4:35 PM CST Preceptor Attestation: Patient's case reviewed and discussed with resident and I examined the patient. I agree with writtenassessment and plan of care Supervising Physician: Figueroa Swain MD MD [facility] ITY CONTROL MICROBIOLOGY SUPERVISOR Del Spencer MD - 01/01/2013 4:23 PM [...] fluticasone (FLONASE) 50 MCG/ACT nasal spray Active [place] 1-2 sprays into both nostrils daily ??? [...] final plan. Del Alvarez. Gagan Aquino's Page: [phone] ITY CONTROL MICROBIOLOGY SUPERVISOR documented in this encounter Plan of Treatment Scheduled Referrals Name Type Priority Associated Diagnoses Order S [facility] MENTAL HEALTH REFERRAL Referral Routine Anxiety Ordered: 01/04/2013 Panic attack documented as of this encounter Visit Diagnoses Diagnosis Anxiety - Primary Anxiety state, unspecified Panic attack Panic disorder without agoraphobia documented in this encounter Care Teams Building Energy Retrofit Technician Relationship Specialty Start Date End Date Caitlin Ballesteros MD PCP - General 10/08/11 08/11/13 documented as of this encounter
--- OUTSIDE RECORDS SUMMARY | 2022-01-23 08:28 | XMS_ITS | Encounter Summary ---
:1980 Author Organization [place] Address [address] [place] [address] Care Team Providers Name Role Phone Caitlin Ballesteros MD Primary Care Provider Reason for Visit Reason Comments Pain Bladder frequency, urgency, pain x1 week; took Uristat once per day Encounter Details Date Type Department Care Team Description 06/21/2012 Office Visit [facility] Caitlin Ballesteros MD UTI (urinary tract Medicine Clinic [facility] infection) (Primary [address], PRACTICE Dx) [address] [facility] [place] [place] [address] [phone] (Wo rk) Social History Tobacco Use Types [...] PM CDT Thank you for coming to [facility]. Lab Testing: If you had lab testing today and your results are reassuring or normal they will be mailed to you or sent through [employer] within 7 days. If the lab tests need quick action we will call you with the results. The phone number we will call with results is # [phone] (home) . If this is not the [...] please call ouroffice during normal business hours [phone] (8- 5:00 M-F) Medical Concerns: If you have urgent medical concerns please call [phone] at any time of the day. If you have a medical emergency please call 911. Again thank you for choosing [facility] and please let us know how we can best partner with you to improve you and your family's health. documented in this encounter Progress Notes Jazz Duncan MD - 06/21/2012 2:35 PM CDT Preceptor Attestation: Patient's case reviewed and discussed with resident. I agree with written assessment and plan of care Supervising Physician: Jazz Duncan MD MD [facility] Caitlin Ballesteros MD - 06/21/2012 2:17 [...] ??? fluticasone (FLONASE) 50 MCG/ACT nasal spray [place] 2 sprays into both nostrils daily. ??? loratadine (CLARITIN) 10 MG tablet Take 1 tablet by mouth daily as needed. Allergies Allergen Reactions ??? Seasonal Allergies Results for orders placed in visit on 06/21/12 (from the past 24 hour(s)) URINALYSIS, MICRO IF (LABDAQ) Component Value Range Specific [place] Urine 1.010 1.005 - 1.030 pH Urine [...] in this encounter Results Urine Microscopic (UA) ([place]) (06/21/2012 2:16 PM CDT) Analysis Performed At Patho logist Time Signature WBC Urine 5-10 /hpf [facility] RBC Urine None /hpf [facility] Epithelial 2-5 /lpf [facility] Cells UR CLINIC LAB Mucous Urine None [facility] Casts Urine None /lpf [facility] Crystal Urine None /lpf [facility] Bacteria Wet Moderate [facility] Prep CLINIC LAB Specimen Anatomical Collection Method Collection Time Receive d Time (Source) Location / / Volume Laterality Urine specimen 06/21/2012 2:16 PM 013 2:16 (specimen) CDT PM CDT Jazz Duncan MD LAB - LABDAQ Performing Organization Address City/State/ZIP Code Phon e Number [facility] [address] [place] [phone] LABDAQ [facility] [address] [place] [phone] Urine culture (06/21/2012 2:08 PM CDT) Component Value Ref Test Analysis Performed At Patholo gist Range Method Time Signature Specimen Midstream Urine [facility] Special Specimen received [facility] Requests in preservative MICROBIOLOGY Culture Micro [...] e Number [facility] [address] [place] [address] [facility] FUM MICROBIOLOGY (ABNORMAL) Urinalysis, Micro If (UA) ([place]) (06/21/2012 2:08 PM CDT) [facility] Method Time Signature Specific [place] 1.010 1.005 - [facility] Urine 1.030 CLINIC LAB pH Urine 6.5 4.5 - 8.0 [facility] Leukocyte 500/ul 2+ [facility] Esterase UR (A) CLINIC LAB Nitrite Urine neg [facility] Protein UR neg [facility] Glucose Urine norm [facility] Ketones Urine neg [facility] Urobilinogen norm [facility] mg/dL CLINIC LAB Bilirubin UR neg [facility] Blood UR neg [facility] Specimen Anatomical Collection Method Collection Time Receive d Time (Source) Location / / Volume Laterality Urine specimen 06/21/2012 2:08 PM 013 2:08 (specimen) CDT PM CDT Caitlin Ballesteros MD LAB - LABDAQ Performing Organization Address City/State/ZIP Code Phon e Number [facility] [address] [place] [phone] LABDAQ [facility] [address] [place] [phone] documented in this encounter Visit Diagnoses Diagnosis UTI (urinary tract infection) - Primary Urinary tract infection, site not specif ied documented in this encounter Care Teams Driver Helper Relationship Specialty Start Date End Date Caitlin Ballesteros MD PCP - General 10/08/11 08/11/13 documented as of this encounter
--- OUTSIDE RECORDS SUMMARY | 2022-01-23 08:28 | XMS_ITS | Encounter Summary ---
:1980 Author Organization [facility] Address [address] [place] [address]. [place] [address] Care Team Providers Name Role Phone Caitlin Ballesteros MD Primary Care Provider Reason for Visit Reason Comments Exposure to STD Encounter Details Date Type Department Care Team Description 12/16/2012 Emergency [facility] Roxanne Grider MD Vaginal yeast infection (Primary Dx); Emergency Department [address] [place] [address] Possible exposure to STD [address] [place] [phone] (Wo rk) Social History Tobacco Use Types [...] Comments Blood Pressure 126/83 12/16/2012 6:29 PM CUSTODIAL MAINTENANCE WORKER Pulse 123 12/16/2012 6:29 PM CUSTODIAL MAINTENANCE WORKER Temperature 36.4 ??C (97.5 ??F) 12/16/2012 6:29 PM CUSTODIAL MAINTENANCE WORKER Respiratory Rate 16 12/16/2012 6:29 PM CUSTODIAL MAINTENANCE WORKER Oxygen Saturation 98% 12/16/2012 6:29 PM CUSTODIAL MAINTENANCE WORKER Inhaled Oxygen Concentration - - Weight - - Height - - Body Mass Index - - documented in this encounter Discharge Instructions Discharge InstructionsRoxanne Grider MD - 12/16/2012 7:42 PM CST Please make an appointment to follow up with Your Primary Care Provider and city manager--[facility] (phone: ) in 3-7 days even if entirely better. Use Diflucan for yeast infection Use Acyclovir as directed for herpes infection You or Your doctor will need to followup on your herpes virus blood test. ODIAL MAINTENANCE WORKER AttachmentsThe following attachments cannot be sent through Care Everywhere. VAGINITIS, ISAI (LATVIAN)documented in this encounter Medications at Time of [...] along with other ointment. fluticasone (FLONASE) 50 [place] 1-2 sprays 1 Package 11 11/1308/28/2013 MCG/ACT nasal into both nostrils sprayIndications: daily Environmental allergies fluticasone (FLONASE) 50 [place] 2 sprays into 0 01/01/2013 MCG/ACT nasal [...] Caitlin Ballesteros MD - 12/21/2012 4:47 PM CUSTODIAL MAINTENANCE WORKER Quick Note: Received the result note. Result [...] needs to make an appointment forfurther discussion. ODIAL MAINTENANCE WORKER documented in this encounter ED Notes Chuyita Gaston RN - 12/16/2012 7:48 PM CST Pt refused vitals ODIAL MAINTENANCE WORKER Roxanne Grider MD - 12/16/2012 6:35 PM [...] and Surgical History, and Social History inthe Per[facility] system. Review of Systems Constitutional: Negative for [...] ED Course Procedures Critical Care time: none [facility] Diagnoses: None 6:40PM Patient seen and evaluated [...] NEG Ketones Urine Negative NEG mg/dL Specific [place] Urine 1.023 1.003 - 1.035 Blood Urine [...] to follow up with her PMD or electrician technician physician next week for culture results and further evaluation and treatment. Addendum: The patient is very concerned about being exposed to herpes. She would prefer that blood testing be done, as her ex-boyfriend will not to talk to her. I spoke with laboratory and will order herpes simplex IgG and IgM with reflux. The patient can follow this result with her PMD or electrician technician physician next week. I have reviewed the [...] INadya, am serving as a trained medical instrument technician to document services personally performed by Dr. Cheo MD, based on the provider's statements to me. This document has been checked and approved by the attending provider. December 16, 2012 12/16/2012 [facility], EMERGENCY DEPARTMENT Roxanne Grider MD 12/16/121956 ODIAL MAINTENANCE WORKER documented in this encounter Plan of Treatment Not on filedocumented as of this encounter Procedures Procedure Name Priority Date/Time Associated Comments Diagnosis HSV 1 AND 2 ANTIBODY Routine 12/16/2012 7:44 PM R esults for this IGG CUSTODIAL MAINTENANCE WORKER procedure are i n the results section. HSV 1 AND 2 IGG IGM STAT 12/16/2012 7:44 PM Re sults for this WITH REFLEX CUSTODIAL MAINTENANCE WORKER procedure are i n the results section. HCG QUALITATIVE URINE STAT 12/16/2012 6:58 PM Results for this POCT CUSTODIAL MAINTENANCE WORKER procedure are i n the results section. WET PREPARATION STAT 12/16/2012 6:48 PM Result s for this CUSTODIAL MAINTENANCE WORKER procedure are i n the results section. URINE MACROSCOPIC STAT 12/16/2012 6:48 PM Resu lts for this WITH REFLEX TO MICRO CUSTODIAL MAINTENANCE WORKER procedu re are in the results section. NEISSERIA GONORRHOEAE STAT 12/16/2012 6:48 PM Results for this PCR CUSTODIAL MAINTENANCE WORKER procedure are i n the results section. CHLAMYDIA TRACHOMATIS STAT 12/16/2012 6:48 PM Results for this PCR CUSTODIAL MAINTENANCE WORKER procedure are i n the results section. documented in this encounter Results HSV 1 and 2 antibody IgG (12/16/2012 7:44 PM CUSTODIAL MAINTENANCE WORKER) athologist Signature HSV 1 IgG PALOMA 24.90 [...] Volume Laterality 12/16/2012 7:44 PM 3 7:47 CUSTODIAL MAINTENANCE WORKER PM CUSTODIAL MAINTENANCE WORKER Roxanne Grider MD LAB - BLOOD ORDERABLES Performing Organization Address City/State/ZIP Code Phon e Number [facility] [address] [place] [address] [place] [facility] MICROBIOLOGY HSV 1 and 2 IgG IgM with reflex (12/16/2012 7:44 PM CUSTODIAL MAINTENANCE WORKER) athologist Signature HSV IgG 5.27 Index [facility] Antibody Value MICROBIOLOGY W/Reflex Comment: Positive Herpes Simplex Virus IgM Antibody 0.43 Index Value [facility] MICROBIOLOGY Comment: No detectable antibody. Specimen Anatomical Collection Method Collection Time Receive d Time (Source) Location / / Volume Laterality Blood specimen 12/16/2012 7:44 PM 013 7:47 (specimen) CUSTODIAL MAINTENANCE WORKER PM CUSTODIAL MAINTENANCE WORKER Roxanne Grider MD LAB - BLOOD ORDERABLES Performing Organization Address City/State/ZIP Code Phon e Number [facility] [address] [place], [place] [id number] [place] [address] [facility] MICROBIOLOGY hCG qual urine POCT (12/16/2012 6:58 PM CUSTODIAL MAINTENANCE WORKER) P athologist Signature HCG Qual Urine negative neg Internal QC OK Yes Specimen (Source) Anatomical Collection Method Collection Time Re ceived Time Location / / Volume Laterality Urine specimen 12/16/2012 6:58 PM (specimen) CUSTODIAL MAINTENANCE WORKER Roxanne Grider MD LAB - ENTER/EDIT POCT (ABNORMAL) UA reflex to microscopic (12/16/2012 6:48 PM CUSTODIAL MAINTENANCE WORKER) [facility] gist Method Time Signature Color Urine Yellow [facility] Appearance Urine Slightly [facility] Cloudy [facility] [facility] Glucose Urine Negative NEG mg/dL [facility] Bilirubin Urine Negative NEG [facility] Ketones Urine Negative NEG mg/dL [facility] [facility] Specific [place] 1.023 1.003 - [facility] Urine 1.035 [facility] [facility] Blood Urine Small (A) NEG [facility] pH Urine 5.5 5.0 - 7.0 [facility] pH [facility] Protein Albumin 10 (A) NEG mg/dL [facility] Urine [facility] Urobilinogen Normal 0.0 - 2.0 [facility] mg/dL mg/dL [facility] Nitrite Urine Negative NEG [facility] Leukocyte Moderate (A) NEG [facility] Esterase Urine [facility] Source Midstream [facility] Urine [facility] [facility] RBC Urine 5 (H) 0 - 2 [facility] /HPF [facility] WBC Urine 9 (H) 0 - 2 [facility] /HPF [facility] Bacteria Urine Few (A) NEG /HPF [facility] Squamous 4 (H) 0 - 1 [facility] Epithelial /HPF /HPF [facility] Urine LAB Mucous Urine Present (A) NEG /LPF [facility] [place] Specimen Anatomical Collection Method Collection Time Receive d Time (Source) Location / / Volume Laterality Urine specimen URINE SPECIMEN 12/16/2012 6:48 PM 12/16 7:01 (specimen) OBTAINED BY CLEAN CUSTODIAL MAINTENANCE WORKER PM CUSTODIAL MAINTENANCE WORKER CATCH PROCEDURE / Unknown Roxanne Grider MD LAB - URINE ORDERABLES Performing Organization Address City/State/ZIP Code Phon e Number [facility] [address] [place] [address] [facility] Chlamydia trachomatis PCR (12/16/2012 6:48 PM CUSTODIAL MAINTENANCE WORKER) Component Value Ref Test Analysis Performed At [facility] Method [place] Signature Specimen Cervix [facility] Description LAB Chlamydia Negative for C. trachomatis rRNA by point of sale associate mediated amplification. [facility] Trachomatis A negative result by [...] specimen 12/16/2012 6:48 PM 013 6:59 (specimen) CUSTODIAL MAINTENANCE WORKER PM CUSTODIAL MAINTENANCE WORKER Roxanne Grider MD LAB - MICRO GENERAL ORDERABL ES Performing Organization Address City/State/ZIP Code Phon e Number [facility] [address] [place] [address] [facility] MICRO[facility] Neisseria gonorrhoeae PCR (12/16/2012 6:48 PM CUSTODIAL MAINTENANCE WORKER) Component Value Ref Test Analysis Performed At [facility] Method [facility] Specimen Cervix [facility] Descrip LAB N Gonorrhea Negative for N. gonorrhoeae rRNA by point of sale associate mediated amplification. [facility] PCR A negative result by [...] specimen 12/16/2012 6:48 PM 013 6:59 (specimen) CUSTODIAL MAINTENANCE WORKER PM CUSTODIAL MAINTENANCE WORKER Roxanne Gridre MD LAB - MICRO GENERAL ORDERABL ES Performing Organization Address City/State/ZIP Code Phon e Number [facility] [address] [place] [address] [facility] LAB [facility] MICROBIOLOGY Wet prep (12/16/2012 6:48 PM CUSTODIAL MAINTENANCE WORKER) Patholo gist Method Time Signature Specimen Cervix [facility] Description [facility] Wet Prep Many PMNs seen [facility] No clue cells seen [facility] No Trichomonas seen LAB No yeast seen Micro Report FINAL [facility] Status 12/16/2012 [facility] Specimen Anatomical Collection Method Collection Time Receive d Time (Source) Location / / Volume Laterality Specimen from 12/16/2012 6:48 PM 12/17/19 13 6:56 vagina CUSTODIAL MAINTENANCE WORKER PM CUSTODIAL MAINTENANCE WORKER (specimen) Roxanne Grider MD LAB - MICRO GENERAL ORDERABL ES Performing Organization Address City/State/ZIP Code Phon e Number [facility] [address] [place], [place] [phone] [place] [address] [facility] documented in this encounter Visit Diagnoses Diagnosis Vaginal yeast infection - Primary Candidiasis of vulva and vagina Possible exposure to STD Other specified personal history present ing hazards to health documented in this encounter Care Teams Motion Picture Director Relationship Specialty Start Date End Date Caitlin Ballesteros MD PCP - General 10/08/11 08/11/13 documented as of this encounter
--- OUTSIDE RECORDS SUMMARY | 2022-01-23 08:28 | XMS_ITS | Encounter Summary ---
:1982 Author Organization [place] Address [facility] [place] [address] Care Team Providers Name Role Phone Lisa Dewitt DO Primary Care Provider Reason for Visit Reason Onset Date Comments Medication Question 01/21/2014 Encounter Details Date Type Department Care Team Description 01/21/2014 Telephone [facility] Lisa Dewitt DO Medication Question Clinic [address] [phone] (Wo rk) Social History Tobacco Use Types [...] per protocol. Patient notified. Bunny Patino RN GLUER Telephone Encounter - Hillary Brumfield - 01/21/2014 9:46 AM CST [facility] Family Medicine phone [...] each of her children. Pharmacy confirmed as [facility] [address] [place], [place] - [address] AT [address]: Yes OK to leave a message on voice mail? Yes Primary language: Jamaican Blasting Machine Operator needed? No Call taken on January 21, 2014 at 9:47 AM by Hillary Brumfield GLUER documented in this encounter Plan of Treatment Not on filedocumented as of this encounter Visit Diagnoses Diagnosis Head lice Pediculus capitis (head louse) documented in this encounter Care Teams Ship Joiner Relationship Specialty Start Date End Date Lisa Dewitt DO PCP - General 08/12/13 07/15/14 [facility] [address] [place] [address] documented as of this encounter
--- OUTSIDE RECORDS SUMMARY | 2022-01-23 08:28 | XMS_ITS | Encounter Summary ---
:1980 Author Organization [place] Address [address] [facility] [place] [address] Care Team Providers Name Role Phone Lisa Dewitt DO Primary Care Provider Encounter Details Date Type Department Care Team Description 09/17/2013 Orders Only [facility] Medicine Lisa Dewitt DO Acne vulgaris Clinic [facility] [address] [place] [address] [address] [place] [address] [place], [place] [address] [phone] Social History Tobacco Use Types Packs/Day Years [...] acne documented in this encounter Care Teams Employment Adjudicator Relationship Specialty Start Date End Date Lisa Dewitt DO PCP - General 08/12/13 07/15/14 [facility] [address] [place] [address] documented as of this encounter
--- OUTSIDE RECORDS SUMMARY | 2022-01-23 08:28 | XMS_ITS | Encounter Summary ---
:1980 Author Organization [place] Address [address] [facility] [place] [address] Care Team Providers Name Role Phone Caitlin Ballesteros MD Primary Care Provider Reason for Visit Reason Comments Abstract Encounter Details Date Type Department Care Team Description 12/19/2011 Abstract [facility] Abstract, Provider [address], [address] [place], [place] [address] Social History Tobacco Use Types Packs/Day Years Used Date Smoking Tobacco: Never Alcohol Use Standard Drinks/Week Comments No 0 (1 standard drink = 0.6 oz pure alcoho l) Sex Assigned at Date Recorded Not on file documented as of this encounter Plan of Treatment Not on filedocumented as of this encounter Visit Diagnoses Not on filedocumented in this encounter Care Teams Motor Runner Relationship Specialty Start Date End Date Caitlin Ballesteros MD PCP - General 10/08/11 08/11/13 documented as of this encounter
--- OUTSIDE RECORDS SUMMARY | 2022-01-23 08:28 | XMS_ITS | Encounter Summary ---
:1982 Author Organization [place] Address [facility] [place] [address] Care Team Providers Name Role Phone Caitlin Ballesteros MD Primary Care Provider Reason for Referral Specialty Diagnoses / Procedures Referred By Contact Refer red To Contact Kenton Hicks MD [place] [address] Referral ID Status Reason Start Date Expiration Date Visits Requ ested Visits Authorized Reason for Visit Reason Comments Mass behind ear and knee for abou t a week Encounter Details Date Type Department Care Team Description 11/13/2012 Office Visit [facility] management (Primary Dx); Medicine Clinic MD Kenton Acne vulgaris; 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
--- OUTSIDE RECORDS SUMMARY | 2022-01-23 08:28 | XMS_ITS | Encounter Summary ---
:1980 Author Organization [place] Address [address] [facility] [place] [address] Care Team Providers Name Role Phone Caitlin Ballesteros MD Primary Care Provider Encounter Details Date Type Department Care Team Description 07/02/2013 Orders Only Ear, Nose and Throat Gael Deshpande MD Dizziness (Primary Dx); Clinic [facility] Ear pressure, right 8th Floor, Clinic 8A HEARING CTR [facility] [address] [address] [facility] [address] [place], [place] (Work) [address] [phone] Social History Tobacco Use Types Packs/Day Years [...] right documented in this encounter Care Teams Laborer Sawmill Relationship Specialty Start Date End Date Caitlin Ballesteros MD PCP - General 10/08/11 08/11/13 documented as of this encounter
--- OUTSIDE RECORDS SUMMARY | 2022-01-23 08:28 | XMS_ITS | Encounter Summary ---
:1982 Author Organization [place] Address [facility] [place] [address] Care Team Providers Name Role Phone Caitlin Ballesteros MD Primary Care Provider Reason for Visit Reason Onset Date Comments Refill Request 10/30/2012 Encounter Details Date Type Department Care Team Description 10/30/2012 Refill [facility] Jennifer Ballesteros MD Refill Request Clinic [address] [facility] [place], [place] [address] [place] [address] [phone] (Wo rk) Social History Tobacco Use Types Packs/Day Years Used Date Smoking Tobacco: Passive Smoke Exposure - Never Smoker Alcohol Use Standard Drinks/Week Comments No 0 (1 standard drink = 0.6 oz pure alcoho l) Sex Assigned at Date Recorded Not on file documented as of this encounter Miscellaneous Notes Telephone Encounter - Sharad Duque CMA - 10/30/2012 1:11 PM CDT [facility] Family Medicine phone call message- patient requesting a refill: Full Medication Name: minocycline Dose: 100MG tablets Pharmacy confirmed as [facility] [id number] [place] [address] [phone] : Yes Additional Comments: The patient said the pharmacy faxed the refill request Monday in the PM. I let her know I will send high priority message to the nurse to fill today and the pharmacy will call whenit is ready to draft roller picker. Thanks! OK to leave a message on voice mail? Yes Primary language: Martiniquais Software Release Manager needed? No Call taken on October 30, 2012 at 1:11 PM by SHARAD DUQUE documented in this encounter Plan of Treatment Not on filedocumented as of this encounter Visit Diagnoses Diagnosis Acne vulgaris - Primary Other acne documented in this encounter Care Teams Roofer Helper Relationship Specialty Start Date End Date Caitlin Ballesteros MD PCP - General 10/08/11 08/11/13 documented as of this encounter
--- OUTSIDE RECORDS SUMMARY | 2022-01-23 08:28 | XMS_ITS | Encounter Summary ---
:1980 Author Organization [place] Address [address] [place] [address] Care Team Providers Name Role Phone Lisa Dewitt DO Primary Care Provider Reason for Visit Reason Onset Date Comments Refill Request 11/11/2013 Encounter Details Date Type Department Care Team Description 11/11/2013 Refill [facility] Lisa Dewitt DO Refill Request [place] [address], [address] [place] [address] [place], [place] [phone] Social History Tobacco Use Types Packs/Day Years [...] acne documented in this encounter Care Teams Fence Installer Helper Relationship Specialty Start Date End Date Lisa Dewitt DO PCP - General 08/12/13 07/15/[address] [place] [address] documented as of this encounter
--- OUTSIDE RECORDS SUMMARY | 2022-01-23 08:28 | XMS_ITS | Encounter Summary ---
:1980 Author Organization [place] Address [facility] [place] [address] Care Team Providers Name Role Phone Lisa Dewitt DO Primary Care Provider Reason for Visit Reason Onset Date Comments Other 01/28/2014 scoliosis FU Encounter Details Date Type Department Care Team Description 01/28/2014 Telephone [facility] Bebeto Roth (scoliosis FU) [facility] MD [facility] [address] [place] [address] Floor, [address] [facility] [address] [address]45 [phone] Social History Tobacco Use Types Packs/Day Years [...] will see Astrid snyder tomorrow for eval. E FIRE MARSHAL documented in this encounter Plan of Treatment Not on filedocumented as of this encounter Visit Diagnoses Not on filedocumented in this encounter Care Teams Ladies Underwear Operator Relationship Specialty Start Date End Date Lisa Dewitt DO PCP - General 08/12/13 07/15/14 [facility] 2019 [place] [address] documented as of this encounter
--- OUTSIDE RECORDS SUMMARY | 2022-01-23 08:28 | XMS_ITS | Encounter Summary ---
:1980 Author Organization [place] Address [address] [facility] [place] [address] Care Team Providers Name Role Phone Caitlin Ballesteros MD Primary Care Provider Reason for Visit Reason Comments Diarrhea since Monday/ per pt- happ en after workout Syncope during working out Chills Encounter Details Date Type Department Care Team Description 04/04/2013 Office Visit [place] Caitlin Ballesteros MD Contraception (Primary Medicine Clinic [facility]) [address], PRACTICE [address] [place] [address] [place] [phone] (Wo rk) Social History Tobacco Use Types [...] Comments Blood Pressure 117/79 04/04/2013 1:37 PM RAIL WALKER Pulse 93 04/04/2013 1:37 PM RAIL WALKER Temperature 36.4 ??C (97.6 ??F) 04/04/2013 1:37 PM RAIL WALKER Respiratory Rate - - Oxygen Saturation 100% 04/04/2013 1:37 PM RAIL WALKER Inhaled Oxygen Concentration - - Weight 70.1 kg (154 lb 9.6 oz) 04/04/2013 1:37 PM RAIL WALKER Height 158.8 cm (5' 2.5) 04/04/2013 1:37 PM RAIL WALKER Body Mass Index 27.83 04/04/2013 1:37 PM RAIL WALKER documented in this encounter Progress Notes Caitlin [...] ??? fluticasone (FLONASE) 50 MCG/ACT nasal spray [place] 1-2 sprays into both nostrils daily ??? [...] I have performed today. Caitlin Ballesteros MD. WALKER Joseph Pittman MD - 04/04/2013 4:35 PM CST Preceptor Attestation: Patient seen and discussed with the resident. Assessment and plan reviewed with resident and agreedupon. Supervising Physician: Joseph Pittman MD [facility] WALKER documented in this encounter Plan of Treatment Not on filedocumented as of this encounter Visit Diagnoses Diagnosis Contraception - Primary Unspecified contraceptive management documented in this encounter Care Teams Typing Bookkeeper Relationship Specialty Start Date End Date Caitlin Ballesteros MD PCP - General 10/08/11 08/11/13 documented as of this encounter
--- OUTSIDE RECORDS SUMMARY | 2022-01-23 08:28 | XMS_ITS | Encounter Summary ---
:1980 Author Organization [place] Address [address] [facility] [place] [address] Care Team Providers Name Role Phone Caitlin [...] CTR [facility] [address] [address] [facility] [phone] [place], [place] (Work) [address] [phone] Social History Tobacco Use Types Packs/Day Years [...] the clinic sooner with questions or concerns: [phone]. documented in this encounter Progress Notes Michael Deshpande MD - 07/02/2013 2:01 PM CDT Dear Caitlin Alexandra: I had the pleasure of meeting Azul Garg in consultation today at the [facility] Otolaryngology [facility] at your request. HISTORY [...] intake form (for the remainder of the [facility]) which I reviewedand signed. Past Medical [...] l documented in this encounter Care Teams Gang Drill Operator Relationship Specialty Start Date End Date Caitlin Ballesteros MD PCP - General 10/08/11 08/11/13 documented as of this encounter
--- OUTSIDE RECORDS SUMMARY | 2022-01-23 08:28 | XMS_ITS | Encounter Summary ---
:1980 Author Organization [place] Address [facility]0 [place] [address] Care Team Providers Name Role Phone Caitlin Ballesteros MD Primary Care Provider Reason for Visit Reason Comments Medication Problem contraception Encounter Details Date Type Department Care Team Description 01/14/2013 Office Visit [facility] Josiah Johnson, Lora ption (Primary Dx); Medicine Clinic MD Najera [address] [place] [address] [place] [address] [place] [address] Social History Tobacco Use Types Packs/Day Years [...] Comments Blood Pressure 116/80 01/14/2013 3:59 PM RESPIRATORY DIRECTOR Pulse 95 01/14/2013 3:59 PM RESPIRATORY DIRECTOR Temperature 36.4 ??C (97.5 ??F) 01/14/2013 3:59 PM RESPIRATORY DIRECTOR Respiratory Rate - - Oxygen Saturation 98% 01/14/2013 3:59 PM RESPIRATORY DIRECTOR Inhaled Oxygen Concentration - - Weight 72.1 kg (159 lb) 01/14/2013 3:59 PM RESPIRATORY DIRECTOR Height 160 cm (5' 3) 01/14/2013 3:59 PM RESPIRATORY DIRECTOR Body Mass Index 28.17 01/14/2013 3:59 PM RESPIRATORY DIRECTOR documented in this encounter Progress Notes Keri Elias MD - 01/14/2013 4:35 PM CST Preceptor Attestation: Patient's case reviewed and discussed with resident and I examined the patient. I agree with writtenassessment and plan of care Supervising Physician: Keri Elias MD [facility] IRATORY DIRECTOR Josiah Johnson MD - 01/14/2013 4:23 PM [...] fluticasone (FLONASE) 50 MCG/ACT nasal spray Active [place] 1-2 sprays into both nostrils daily ??? [...] with the final plan. Josiah Johnson MD IRATORY DIRECTOR documented in this encounter Plan of Treatment Not on filedocumented as of this encounter Visit Diagnoses Diagnosis Contraception - Primary Unspecified contraceptive management Metrorrhagia documented in this encounter Care Teams Media Librarian Relationship Specialty Start Date End Date Caitlin Ballesteros MD PCP - General 10/08/11 08/11/13 documented as of this encounter
--- OUTSIDE RECORDS SUMMARY | 2022-01-23 08:28 | XMS_ITS | Encounter Summary ---
:1980 Author Organization [place] Address [address] [place] [address] Care Team Providers Name Role Phone Caitlin Ballesteros MD Primary Care Provider Reason for Visit Reason Comments Neck Pain patient could not move neck to the left after waking up today. History of TMJ. Encounter Details Date Type Department Care Team Description 02/28/2013 Office Visit [facility] Caitlin Ballesteros MD Neck muscle spasm Medicine Clinic [facility] (Primary Dx) [address], PRACTICE [address] [place] [address] [place] [address] [phone] (Wo rk) Social History Tobacco Use Types [...] Comments Blood Pressure 122/81 02/28/2013 3:00 PM HEAD HOUSEKEEPER Pulse 94 02/28/2013 3:00 PM HEAD HOUSEKEEPER Temperature 36.8 ??C (98.2 ??F) 02/28/2013 3:00 PM HEAD HOUSEKEEPER Respiratory Rate - - Oxygen Saturation 100% 02/28/2013 3:00 PM HEAD HOUSEKEEPER Inhaled Oxygen Concentration - - Weight 70.3 kg (155 lb) 02/28/2013 3:00 PM HEAD HOUSEKEEPER Height 158.8 cm (5' 2.5) 02/28/2013 3:00 PM HEAD HOUSEKEEPER Body Mass Index 27.9 02/28/2013 3:00 PM HEAD HOUSEKEEPER documented in this encounter Patient Instructions Patient InstructionsCaitlin Ballesteros MD - 02/28/2013 3:33 PM CST Thank you for coming to [facility]. If you had lab testing today and your results are reassuring or normal they will be be mailed to you or sent to your MyChart and you will be notified by email within 7 days. If the lab tests need quick action we will call you with the results. The phone number we will call with results is # [phone] (home) (home) . If this is not the best number please call our clinic and change the number. If any referrals were ordered today you should be getting a call in the next week. If you don't hear about this within a week please call one of the following numbers If your referral is for P please call [phone] If your referral is to outside [facility] please call the clinic number ([phone]) and ask for your team care asst. If you need any refills please call your pharmacy and they will contact us. If you have any concerns about today's visit or wish to schedule another appointment please call ouroffice during normal business hours [phone] (8- 5:00 M-F) If you have urgent medical concerns please call [phone] at any time of the day. If you have a medical emergency please call 101 Again thank you for choosing [facility] and please let us know how we can best partner with youto improve your and your family's health. HOUSEKEEPER documented in this encounter Progress Notes Joseph Pittman MD - 02/28/2013 5:28 PM CST Preceptor Attestation: Patient seen and discussed with the resident. Assessment and plan reviewed with resident and agreedupon. Supervising Physician: Joseph Pittman MD [facility] HOUSEKEEPER Caitlin Ballesteros MD - 02/28/2013 3:15 PM [...] ??? fluticasone (FLONASE) 50 MCG/ACT nasal spray [place] 1-2 sprays into both nostrils daily ??? [...] with the final plan. Caitlin Ballesteros MD. HOUSEKEEPER documented in this encounter Plan of Treatment Not on filedocumented as of this encounter Visit Diagnoses Diagnosis Neck muscle spasm - Primary Spasm of muscle documented in this encounter Care Teams Community Service Technician Relationship Specialty Start Date End Date Caitlin Ballesteros MD PCP - General 10/08/11 08/11/13 documented as of this encounter
--- OUTSIDE RECORDS SUMMARY | 2022-01-23 08:28 | XMS_ITS | Encounter Summary ---
:1980 Author Organization [place] Address [address] [facility] [place] [address] Care Team Providers Name Role Phone Renate Lisa Primary Care Provider Reason for Visit Reason Onset Date Comments Refill Request 08/12/2013 Encounter Details Date Type Department Care Team Description 08/12/[address] [facility] Jennifer Ballesteros MD Refill Request Clinic [address], PRACTICE [address] [place], [place] [address] [place] [address] [phone] (Wo rk) Social History Tobacco Use Types [...] unspecified documented in this encounter Care Teams Unattended Ground Sensor Specialist Relationship Specialty Start Date End Date Lisa Dewitt DO PCP - General 08/12/13 07/15/14 [facility] 2019 [place] [address] documented as of this encounter
--- OUTSIDE RECORDS SUMMARY | 2022-01-23 08:28 | XMS_ITS | Encounter Summary ---
:1980 Author Organization [place] Address [address] [facility] [place] [address] Care Team Providers Name Role Phone Caitlin Ballesteros MD Primary Care Provider Encounter Details Date Type Department Care Team Description 01/08/2013 Telephone [facility] Syd Alvarez MD Clinic [address] [place] [address], [address] [place], [place] [address] Social History Tobacco Use Types [...] disorder documented in this encounter Care Teams Communications Analyst Relationship Specialty Start Date End Date Caitlin Ballesteros MD PCP - General 10/08/11 08/11/13 documented as of this encounter
--- OUTSIDE RECORDS SUMMARY | 2022-01-23 08:28 | XMS_ITS | Encounter Summary ---
:1980 Author Organization [place] Address [facility] [place] [address] Care Team Providers Name Role Phone Caitlin Ballesteros MD Primary Care Provider Reason for Referral Specialty Diagnoses / Procedures Referred By Contact Refer red To Contact Caitlin Ballesteros MD [address] [place], [place] [address] Referral ID Status Reason Start Date Expiration Date Visits Requ ested Visits Authorized FOOD PRODUCTS MIXER Reason for Visit Reason Comments Knee Pain both knees x 3weeks-no injur y Encounter Details Date Type Department Care Team Description 12/22/2011 Office Visit [facility] Caitlin Ballesteros MD Knee pain, bilateral (Primary Dx); Medicine Clinic [facility] Contraception management; [address], PRACTICE Acne vulgaris [address] [facility] [place] [address] [phone] (Wo rk) Social History Tobacco Use Types Packs/Day Years Used Date Smoking Tobacco: Never Alcohol Use Standard Drinks/Week Comments No 0 (1 standard drink = 0.6 oz pure alcoho l) Sex Assigned at Date Recorded Not on file documented as of this encounter Last Filed Vital Signs Vital Sign Reading Time Taken Comments Blood Pressure 115/85 12/22/2011 2:06 PM DRY FOOD PRODUCTS MIXER Pulse 97 12/22/2011 2:06 PM DRY FOOD PRODUCTS MIXER Temperature 36.9 ??C (98.4 ??F) 12/22/2011 2:06 PM DRY FOOD PRODUCTS MIXER Respiratory Rate 16 12/22/2011 2:06 PM DRY FOOD PRODUCTS MIXER Oxygen Saturation - - Inhaled Oxygen Concentration - - Weight 68.9 kg (152 lb) 12/22/2011 2:06 PM DRY FOOD PRODUCTS MIXER Height 156.8 cm (5' 1.75) 12/22/2011 2:06 PM DRY FOOD PRODUCTS MIXER Body Mass Index 28.03 12/22/2011 2:06 PM DRY FOOD PRODUCTS MIXER documented in this encounter Patient Instructions Patient InstructionsCaitlin Ballesteros MD - 12/22/2011 6:38 PM CST Thank you for coming to [facility]. If you had lab testing today and your results are reassuring or normal they will be be mailed to you within 7 days. If the lab tests need quick action we will call you with the results. The phone number we will call with results is # [phone] (home) . If this is not the best numberplease call our clinic and change the number. If you need any refills please call your pharmacy and they will contact us. If you have any concerns about today's visit or wish to schedule another appointment please call ouroffice during normal business hours [phone] (8- 5:30 M-F) If you have urgent medical concerns please call [phone] at any time of the day. If you have a medical emergency please call 911 Again thank you for choosing [facility] and please let us know how we can best partner with youto improve your and your family's health. Referred to [facility] [phone] Referral faxed, [facility] to contact patient directly to schedule FOOD PRODUCTS MIXER documented in this encounter Progress Notes Keri Elias MD - 12/22/2011 3:55 PM CST Preceptor Attestation: Patient's case reviewed and discussed with resident and I examined the patient. I agree with writtenassessment and plan of care Supervising Physician: Keri Elias MD MD [facility] FOOD PRODUCTS MIXER Caitlin Ballesteros MD - 12/22/2011 2:25 PM [...] idiopathic scoliosis ??? , subsequent ??? Health Assisted ??? Acne vulgaris ??? Anxiety ??? Congenital [...] ??? fluticasone (FLONASE) 50 MCG/ACT nasal spray [place] 2 sprays into both nostrils daily. ??? [...] with the final plan. Caitlin Ballesteros MD FOOD PRODUCTS MIXER documented in this encounter Plan of Treatment Scheduled Referrals Name Type Priority Associated Diagnoses Order S jaye PHYSICAL THERAPY REFERRAL Referral Routine Knee pain, bila teral Ordered: 12/22/2011 documented as of this encounter Visit Diagnoses Diagnosis Knee pain, bilateral - Primary Pain in joint, lower leg Contraception management Unspecified contraceptive management Acne vulgaris Other acne documented in this encounter Care Teams Tour Actor Relationship Specialty Start Date End Date Caitlin Ballesteros MD PCP - General 10/08/11 08/11/13 documented as of this encounter
--- OUTSIDE RECORDS SUMMARY | 2022-01-23 08:28 | XMS_ITS | Encounter Summary ---
:1980 Author Organization [place] Address [address] [facility] [place] [address] Care Team Providers Name Role Phone Caitlin Ballesteros MD Primary Care Provider Encounter Details Date Type Department Care Team Description 07/02/2013 Office Visit [facility] Michael Deshpande MD [facility] [address] [facility] [address] [address] Audiology Zahira Hernandez AuD [address] [place], [place] [phone] 6 [facility] [address] cl inic 8B [facility] [place], [place] [phone] Social History Tobacco Use [...] results. RECOMMENDATIONS: Follow-up with ENT. Tommy Salcedo Mulling Machine Operator [place] #[id number] documented in this encounter Plan of [...] on filedocumented in this encounter Care Teams Champagne Maker Relationship Specialty Start Date End Date Caitlin Ballesteros MD PCP - General 10/08/11 08/11/13 documented as of this encounter
--- OUTSIDE RECORDS SUMMARY | 2022-01-23 08:28 | XMS_ITS | Encounter Summary ---
:1980 Author Organization [place] Address [facility] [place] [address] Care Team Providers Name Role Phone Caitlin Ballesteros MD Primary Care Provider Reason for Visit Reason Comments Minor Procedure [place] has mole/skintag on t he left shoulder and left outer knee Encounter Details Date Type Department Care Team Description 11/22/2012 Office Visit [facility] Jada, Dermatofibro [facility] Medicine Clinic Anthony Glez MD thigh (Primary Dx) [address], [address] [place], [place] [address] Social History Tobacco Use Types [...] hear from us, please call us at [phone] and let us know that you haven't received your results. Thank you for coming to [facility]. Lab Testing: If you had lab testing today and your results are reassuring or normal they will be mailed to you or sent through [employer]pace within 7 days. If the lab tests need quick action we will call you with the results. The phone number we will call with results is # [phone] (home) . If this is not the best numberplease call our clinic and change the number. Medication Refills: If you need any refills please call your pharmacy and they will contact us. If you need to metal pickling equipment operator your refill at a new pharmacy, please contact the new pharmacy directly. The new pharmacy will help you get your medications transferred faster. Scheduling: If you have any concerns about today's visit or wish to schedule another appointment please call ouroffice during normal business hours [phone] (8- 5:00 M-F) Medical Concerns: If you have urgent medical concerns please call [phone] at any time of the day. If you have a medical emergency please call 911. Again thank you for choosing [facility] and please let us know [...] of care Supervising Physician: Anthony Elias MD [facility] Caitlin Ballesteros MD - 11/22/2012 1:46 PM CDT [facility] Skin Biopsy Procedure Note Azul Garg [...] Component Value Ref Test Analysis Performed At [facility] gist Range Method Time Signature Copath Report Patient Name: AZUL MCCLELLAN MR#: [id number] Specimen #: [id number] Collected: 11/22/2012 Received: 11/23/2012 Reported: 11/26/2012 13:48 [...] Ajith Acevedo MD/romulo 11/26/12 TESTING LAB LOCATION: [facility] [address] [address] COLLECTION SITE: Client: [facility] Location: FA (B) Specimen (Source) Anatomical Collection Method Collection Time Re ceived Time Location / / Volume Laterality Lower limb 11/22/2012 1:30 11/23/2012 8 :36 structure (body PM CDT AM CDT structure) Anthony Elias MD [facility] Organization Address City/State/ZIP Code Phon e Number [place] documented in this encounter Visit Diagnoses Diagnosis Dermatofibroma of left thigh - Primary Benign neoplasm of skin of lower limb, i ncluding hip documented in this encounter Care Teams Dairy Feed Sales Consultant Relationship Specialty Start Date End Date Caitlin Ballesteros MD PCP - General 10/08/11 08/11/13 documented as of this encounter
--- OUTSIDE RECORDS SUMMARY | 2022-01-23 08:28 | XMS_ITS | Encounter Summary ---
:1980 Author Organization [place] Address [address] [facility] [place] [address] Care Team Providers Name Role Phone Caitlin Ballesteros MD Primary Care Provider Reason for Visit Reason Onset Date Comments Other 07/10/2013 Encounter Details Date Type Department Care Team Description 07/10/2013 Telephone [facility] Jennifer Ballesteros MD Other Clinic [place] [address], [facility] [address]ACT [address] [place], [place] [address] [place] [address] [phone] (Wo rk) Social History Tobacco Use Types [...] Valarie Haji - 07/10/2013 3:30 PM CDT [facility] Family Medicine phone call message- general phone call: Reason for call: Patient needs to know her blood type as they are doing a blood drive at her place of employment. Return call needed: Yes OK to leave a message on voice mail? Yes Primary language: Israeli Executive Receptionist needed? No Call taken on July 10, 2013 at 3:30 PM by Valarie Haji documented in this encounter Plan of Treatment Not on filedocumented as of this encounter Visit Diagnoses Not on filedocumented in this encounter Care Teams Skilled Helper Relationship Specialty Start Date End Date Caitlin Ballesteros MD PCP - General 10/08/11 08/11/13 documented as of this encounter
--- OUTSIDE RECORDS SUMMARY | 2022-01-23 08:28 | XMS_ITS | Encounter Summary ---
:1980 Author Organization [place] Address [facility] [place] [address] Care Team Providers Name Role Phone Caitlin Ballesteros MD Primary Care Provider Reason for Visit Reason Comments Results follow up Encounter Details Date Type Department Care Team Description 12/24/2012 Office Visit [facility] Josiah Johnson, Anxiety (Primary Dx) Medicine Clinic [address] [place] [address] [place] [address] [place] [address] Social History Tobacco Use Types Packs/Day Years [...] Comments Blood Pressure 128/85 12/24/2012 1:33 PM NUTRITION ASSOCIATE Pulse 107 12/24/2012 1:33 PM NUTRITION ASSOCIATE Temperature 36.8 ??C (98.2 ??F) 12/24/2012 1:33 PM NUTRITION ASSOCIATE Respiratory Rate - - Oxygen Saturation 100% 12/24/2012 1:33 PM NUTRITION ASSOCIATE Inhaled Oxygen Concentration - - Weight 72.9 kg (160 lb 12.8 oz) 12/24/2012 1:33 PM NUTRITION ASSOCIATE Height 160.8 cm (5' 3.3) 12/24/2012 1:33 PM NUTRITION ASSOCIATE Body Mass Index 28.22 12/24/2012 1:33 PM NUTRITION ASSOCIATE documented in this encounter Patient Instructions Patient InstructionsJosiah Johnson MD - 12/24/2012 1:59 PM CST Thank you for coming to [facility]. Lab Testing: If you had lab testing today and your results are reassuring or normal they will be mailed to you or sent through Gam[employer] within 7 days. If the lab tests need quick action we will call you with the results. The phone number we will call with results is # [phone] (home) . If this is not the best numberplease call our clinic and change the number. Medication Refills: If you need any refills please call your pharmacy and they will contact us. If you need to sweet pickle maker your refill at a new pharmacy, please contact the new pharmacy directly. The new pharmacy will help you get your medications transferred faster. Scheduling: If you have any concerns about today's visit or wish to schedule another appointment please call ouroffice during normal business hours [phone] (8- 5:00 M-F) Medical Concerns: If you have urgent medical concerns please call [phone] at any time of the day. If you have a medical emergency please call 911. Again thank you for choosing [facility] and please let us know how we can best partner with you to improve you and your family's health. ITION ASSOCIATE documented in this encounter Progress Notes Josiah [...] Pt was very anxious about her testing. Hurst anxiety and shakiness in her class. Denies any other mood changes. Patient Active Problem List Diagnosis ??? Adolescent idiopathic scoliosis ??? Health Half-Way ??? Acne vulgaris ??? Anxiety ??? Congenital [...] fluticasone (FLONASE) 50 MCG/ACT nasal spray Active [place] 1-2 sprays into both nostrils daily ??? benzoyl peroxide 5 % gel Active Use over the areas everyday 1-2 times/daily. Please use it alongwith other ointment. ??? fluticasone (FLONASE) 50 MCG/ACT nasal spray Active [place] 2 sprays into both nostrils daily. Allergies [...] Final Value:Negative for N. gonorrhoeae rRNA by guard captain mediated amplification. A negative result by guard captain mediated amplification does not preclude the presence of N. gonorrhoeae infection because results are dependent on proper and adequate collection, absence of inhibitors, and sufficient rRNA to be detected. ??? Specimen Description 12/16/2012 Cervix Final ??? Chlamydia Trachomatis PCR 12/16/2012 Final Value:Negative for C. trachomatis rRNA by guard captain mediated amplification. A negative result by guard captain mediated amplification does not preclude the presence [...] 12/16/2012 Negative NEG mg/dL Final ??? Specific [place] Urine 12/16/2012 1.023 1.003 - 1.035 Final [...] anxiety seems situational, not starting her on chcf treatment like SSRI. 2. Herpes Type 1 [...] with the final plan. Josiah Johnson MD ITION ASSOCIATE Jazz Duncan MD - 12/24/2012 1:41 PM CST Preceptor Attestation: Patient's case reviewed and discussed with resident and I examined the patient. I agree with writtenassessment and plan of care Supervising Physician: Jazz Duncan MD MD [facility] ITION ASSOCIATE documented in this encounter Plan of Treatment Not on filedocumented as of this encounter Visit Diagnoses Diagnosis Anxiety - Primary Anxiety state, unspecified documented in this encounter Care Teams Resident Care Manager Rn Relationship Specialty Start Date End Date Caitlin Ballesteros MD PCP - General 10/08/11 08/11/13 documented as of this encounter
--- OUTSIDE RECORDS SUMMARY | 2022-01-23 08:28 | XMS_ITS | Encounter Summary ---
:1980 Author Organization [place] Address [facility] [place] [address] Care Team Providers Name Role Phone Caitlin Ballesteros MD Primary Care Provider Reason for Visit Reason Onset Date Comments Results 12/24/2012 Encounter Details Date Type Department Care Team Description 12/24/2012 Telephone [facility] Jennifer Ballesteros MD Results Clinic [place] [address], [facility] [address]ACT [address] [place], [place] [address] [place] [address] [phone] (Wo rk) Social History Tobacco Use Types Packs/Day Years Used Date Smoking Tobacco: Passive Smoke Exposure - Never Smoker Smokeless Tobacco: Never Alcohol Use Standard Drinks/Week Comments No 0 (1 standard drink = 0.6 oz pure alcoho l) Sex Assigned at Date Recorded Not on file documented as of this encounter Miscellaneous Notes Telephone Encounter - Madison Nobles LPN - 12/25/2012 11:09 AM LAUNDRY WASHER Patient seen in clinic 12-24-12. Madison Nobles LPN DRY WASHER Telephone Encounter - Terrie Link - 12/24/2012 7:58 AM CST [facility] Family Medicine phone call message- patient [...] message on voice mail? Yes Primary language: [place] Islander Skating Rink Manager needed? No Call taken on December 24, 2012 at 7:58 AM by Terrie Link DRY WASHER documented in this encounter Plan of Treatment Not on filedocumented as of this encounter Visit Diagnoses Not on filedocumented in this encounter Care Teams Special Education Professional Relationship Specialty Start Date End Date Caitlin Ballesteros MD PCP - General 10/08/11 08/11/13 documented as of this encounter
--- OUTSIDE RECORDS SUMMARY | 2022-01-23 08:28 | XMS_ITS | Encounter Summary ---
:1980 Author Organization [place] Address [address] [facility] [address] Care Team Providers Name Role Phone Caitlin Ballesteros MD Primary Care Provider Lisa Dewitt DO Primary Care Provider Reason for Visit Reason Onset Date Comments Referral 01/04/2013 Mental Health Referr al Encounter Details Date Type Department Care Team Description 01/04/[address] [facility] Caitlin Ballesteros MD Referral (Mental Medicine Clinic [facility] Referral) [address] [place] [address], PRACTICE [address] 39[address] [facility] [place], [place] [address] [address] [place] [address] (Wo rk) Social History Tobacco [...] - 01/04/2013 10:39 AM CST Referral noted T BASIC EDUCATION TEACHER Telephone Encounter - Collin Gabriel - 01/04/2013 10:12 AM CST [facility] Family Medicine phone call message- order or referral request for patient: Order or referral being requested: Mental Health Referral Order Details: Patient states she received a phone call regarding the mental health referral for counseling. She states she would like the referral to be for [facility] because of their hours. If referral, has the patient been seen for this problem? N/A Additional Comments: OK to leave a message on voice mail? Yes Primary language: [place] Department Manager needed? No Call taken on January 04, 2013 at 10:12 AM by Collin Gabriel T BASIC EDUCATION TEACHER documented in this encounter Plan of Treatment Not on filedocumented as of this encounter Visit Diagnoses Not on filedocumented in this encounter Care Teams Digital Marketing Analyst Relationship Specialty Start Date End Date Caitlin Ballesteros MD PCP - General 10/08/11 08/11/13 Lisa Dewitt DO PCP - General 08/12/13 07/15/14 [place] [address] [place] [address] documented as of this encounter
--- OUTSIDE RECORDS SUMMARY | 2022-01-23 08:28 | XMS_ITS | Encounter Summary ---
:1980 Author Organization [place] Address [facility] [place] [address] Care Team Providers Name Role Phone Lisa Dewitt DO Primary Care Provider Encounter Details Date Type Department Care Team Description 08/14/2013 Orders Only [facility] Lisa Dewitt Contracep tion (Primary Medicine Clinic DO Dx) [address] [place] [address] [place] [address] [place] [address] [place], [place] [phone] Social History Tobacco Use Types Packs/Day Years [...] management documented in this encounter Care Teams Hollow Handle Bench Worker Relationship Specialty Start Date End Date Lisa Dewitt DO PCP - General 08/12/13 07/15/14 [facility] [address] [place] [id number] documented as of this encounter
--- OUTSIDE RECORDS SUMMARY | 2022-01-23 08:28 | XMS_ITS | Encounter Summary ---
:1980 Author Organization [place] Address [address] [facility] [place] [address] Care Team Providers Name Role Phone Caitlin Ballesteros MD Primary Care Provider Reason for Visit Reason Onset Date Comments Head Lice 08/05/2013 Two youngest childre n have lice Encounter Details Date Type Department Care Team Description 08/05/2013 Telephone [facility] Caitlin Ballesteros MD Head Lice ([facility]NOTE 2] youngest children have [address], PRACTICE lice ) [address] [facility] [place], [place] [address] [place] [address] (Wo rk) Social History Tobacco [...] CDT Message forward to Dr Alvarez and Japanese message sent. Madison Nobles LPN Informed mom Auzl that I sent message to Dr Alvarez. [...] louse) documented in this encounter Care Teams Flatwork Tier Relationship Specialty Start Date End Date Caitlin Ballesteros MD PCP - General 10/08/11 08/11/13 documented as of this encounter
--- OUTSIDE RECORDS SUMMARY | 2022-01-23 08:28 | XMS_ITS | Encounter Summary ---
:1980 Author Organization [place] Address [facility] [place] [address] Care Team Providers Name Role Phone Lisa Dewitt DO Primary Care Provider Reason for Referral [facility] - Closed Specialty Diagnoses / Procedures Referred By Contact Refer red To Contact Diagnoses Scoliosis Acquired postural kyphosis Astrid Rios PA-C [facility] [address] [place] [address] Referral ID Status Reason Start Date Expiration Date Visits Requ ested Visits Authorized [id number] Closed 01/29/2014 07/28/2014 1 1 SUPERINTENDENT Reason for Visit Reason Comments Back Pain Scoliosis. Feeling screws an d clicking Encounter Details Date Type Department Care Team Description 01/29/2014 Office Visit Orthopaedic Clinic Astrid Rios, Scoliosis (Primary Dx); [facility] MELISA Acquired postural kyphosis [facility] 1st Floor, [address] [place] [address] [place] [address], [phone] [place] [id number] Social History Tobacco Use Types Packs/Day Years [...] (151 lb 12.8 oz) 01/29/2014 8:18 AM CITY SUPERINTENDENT Height 160 cm (5' 3) 01/29/2014 8:18 AM CITY SUPERINTENDENT Body Mass Index 26.89 01/29/2014 8:18 AM CITY SUPERINTENDENT documented in this encounter Progress Notes Astrid [...] midline in the middle of her spine. [place] it one time yesterday, no recurrence. Also [...] DE OLIVEIRA Copy to patient AGUSTINA TELLEZ [address] [place] [phone] SUPERINTENDENT documented in this encounter Nursing Notes John [...] daily fluticasone (FLONASE) 50 MCG/ACT nasal spray [place] 1-2 sprays into both nostrils daily loratadine-pseudoePHEDrine [...] Reactions ??? Seasonal Allergies Mago Lopez CMA SUPERINTENDENT documented in this encounter Plan of Treatment Scheduled Referrals Name Type Priority Associated Diagnoses Order S chedule PHYSICAL THERAPY Referral Routine Scoliosis Ordered: 01/29/2014 REFERRAL (Internal) Acquired postural kyphosis documented as of this encounter Visit Diagnoses Diagnosis Scoliosis - Primary Scoliosis (and kyphoscoliosis), idiopath ic Acquired postural kyphosis Kyphosis (acquired) (postural) documented in this encounter Care Teams Ethnic Studies Professor Relationship Specialty Start Date End Date Lisa Dewitt DO PCP - General 08/12/13 07/15/14 [facility] 2019 [place] [address] documented as of this encounter
--- OUTSIDE RECORDS SUMMARY | 2022-01-23 08:29 | XMS_ITS | Encounter Summary ---
:1980 Author Organization [place] Address [address] [place] [address]. [place] [address] Care Team Providers Name Role Phone Unavailable Primary Care Provider Unavailable Encounter Details Date Type Department Care Team Description 09/30/2011 Orders Only [facility] Angela Holguin IUGR (intrauterine growth Imaging restriction) (Primary Dx) [address] [place] [phone] Social History Tobacco Use Types Packs/Day [...] this encounter Results US BIOPHYS PROFILE W/O [id number] PERFORMED (09/30/2011 2:02 PM CDT) Anatomical Region [...]
--- OUTSIDE RECORDS SUMMARY | 2022-01-23 08:29 | XMS_ITS | Encounter Summary ---
:1980 Author Organization [place] Address 2450 [facility] [address] Care Team Providers Name Role Phone Andreas Patel MD Primary Care Provider Caitlin Ballesteros MD Primary Care Provider Lisa Dewitt DO Primary Care Provider Bebeto Roth MD Unavailable Astrid Rios PA-C Unavailable [facility] Primary Care Provider + Keri Elias MD Primary Care Provider Unavailable Francicso Metz MD Primary Care Provider [phone] Francisco Metz MD Unavailable [phone] Kenton Katz MD Unavailable Unavailable Karen Veliz DO Primary Care Provider Kenton Katz MD Unavailable Unavailable Karen Veliz DO Unavailable Encounter Details Date Type Department Care Team Description 09/30/2011 [facility] Only [facility] Angela Lyons [address] [place] [address] Social History Tobacco Use [...] filedocumented in this encounter Care Teams Maintenance Painter Apprentice Relationship Specialty Start Date End Date Andreas Patel MD PCP - General 10/05/11 10/07/11 [facility] [address] [place] [address] Caitlin Ballesteros MD PCP - General 10/08/11 08/11/13 Lisa Dewitt DO PCP - General 08/12/13 07/15/14 [facility] [address] [place] [address] Clinic - [facility] PCP - General 07/16/14 03/11/15 [facility] 2019 [place] [address] Keri Elias PCP - General Family Practice 03/12/15 9 MD Isaías Glez Mitchell PCP - General Family Practice 11/14/18 04/02/20 MD Stevie Karen Veliz, PCP - General Family Medicine 04/03/20 [address] [place] [address] Bebeto Roth MD Orthopedics 07/09/14 [facility] [address] [facility] [address] [place] [address] Astrid Rios PA-C Physician Hospice Superintendent Physician Hospice Superintendent - 07/09/14 Surgical Francisco Metz Assigned PCP 07/04/19 02/01/20 MD Stevie [place] [address] [place] [address] Kenton Katz Assigned PCP 02/02/20 08/27/20 MD [place] NO INFO AVAILABLE Kenton Katz Assigned Endocrinology 08/28/20 07/23/21 MD [place] Provider NO INFO AVAILABLE Karen Veliz, Assigned PCP 08/28/20 DO 2019 [place] [address] documented as of this encounter
--- OUTSIDE RECORDS SUMMARY | 2022-01-23 08:29 | XMS_ITS | Encounter Summary ---
:1980 Author Organization [place] Address [address] [place] [address]. [place] [address] Care Team Providers Name Role Phone Unavailable Primary Care Provider Unavailable Reason for Visit (Routine) - Closed Specialty Diagnoses / Procedures Referred By Contact Refer red To Contact Radiology Diagnoses US OB 2-3 TRIMESTER* Procedure Notes: POSITIVE TEST,SIZES, DATES Ur Ultrasound Procedures RADIOLOGY [address] [place] [phone] Phone: Referral ID Status Reason Start Date Expiration Date Visits Requ ested Visits Authorized [id number] Closed 04/26/2011 04/25/2012 1 1 Encounter Details Date Type Department Care Team Description 04/28/2011 Hospital Encounter [facility] Radha Navarro sitive [facility] Imaging MD Андрей test [address] [place] [address] [place] (Work) [place] [address] Social History Tobacco Use Types [...]
--- OUTSIDE RECORDS SUMMARY | 2022-01-23 08:29 | XMS_ITS | Encounter Summary ---
:1980 Author Organization [place] Address [address] [facility] [place] [address] Care Team Providers Name Role Phone Unavailable Primary Care Provider Unavailable Encounter Details Date Type Department Care Team Description 08/11/2011 Historic Results [facility] Leanne Navarro [place] MD Андрей [address] [place] [address] [place] [address] Social History Tobacco Use Types Packs/Day Years [...]
--- OUTSIDE RECORDS SUMMARY | 2022-01-23 08:29 | XMS_ITS | Encounter Summary ---
:1980 Author Organization [place] Address [facility] [place] [address] Care Team Providers Name Role Phone Unavailable Primary Care Provider Unavailable Encounter Details Date Type Department Care Team Description 06/21/2011 Results Only [facility] Radha De La Fuente [address] [facility] MD Андрей [place], [place] [address] [phone] Social History Tobacco Use Types Packs/Day Years [...] Value Ref Test Analysis Performed At [facility] Range Method Time Signature Specimen Cervical [facility] Chlamydia Negative for C. trachomatis rRNA by silk screen etcher mediated amplification. [facility] Trachomatis A negative result [...] e Number [facility] [address] [place] [address] [facility] MICROBIOLOGY documented in this encounter Visit Diagnoses Not on filedocumented in this encounter
--- OUTSIDE RECORDS SUMMARY | 2022-01-23 08:29 | XMS_ITS | Encounter Summary ---
:1980 Author Organization [place] Address [facility] [place] [address] Care Team Providers Name Role Phone Unavailable Primary Care Provider Unavailable Encounter Details Date Type Department Care Team Description 04/20/2011 Results Only [facility] Radha De La Fuente 500 [facility] MD Андрей [place], [place] [address] [phone] Social History Tobacco Use Types Packs/Day Years Used Date Smoking Tobacco: Never Assessed Sex Assigned at Date Recorded Not on file documented as of this encounter Plan of Treatment Not on filedocumented as of this encounter Procedures Procedure Name Priority Date/Time Associated Diagnosis Comme nts HEPATITIS B SURFACE Routine 04/20/2011 4:32 PM Re sults for this ANTIGEN GARNETT MACHINE OPERATOR HELPER procedure are i n the results section. documented in this encounter Results Hepatitis B surface antigen (04/20/2011 4:32 PM GARNETT MACHINE OPERATOR HELPER) Analysis Performed At Patho logist Time Signature Hep B Surface Negative NEG [facility] LABS Specimen Anatomical Collection Method Collection Time Receive d Time (Source) Location / / Volume Laterality 04/20/2011 4:32 PM 201 2 4:37 GARNETT MACHINE OPERATOR HELPER PM GARNETT MACHINE OPERATOR HELPER Radha Navarro MD LAB - BLOOD ORDERABLES Performing Organization Address City/State/ZIP Code Phon e Number [facility] [address] [place] [address] [facility] LABS documented in this encounter Visit Diagnoses Not on filedocumented in this encounter
--- OUTSIDE RECORDS SUMMARY | 2022-01-23 08:29 | XMS_ITS | Encounter Summary ---
:1980 Author Organization [place] Address [address] [facility] [place] [address] Care Team Providers Name Role Phone Andreas Patel MD Primary Care Provider Caitlin Ballesteros MD Primary Care Provider Lisa Dewitt DO Primary Care Provider Bebeto Roth MD Unavailable Astrid Rios PA-C Unavailable [facility] Primary Care Provider + Keri Elias MD Primary Care Provider Unavailable Francisco Metz MD Primary Care Provider [phone] Francisco Metz MD Unavailable [phone] Kenton Katz MD Unavailable Unavailable Karen Veliz DO Primary Care Provider Kenton Katz MD Unavailable Unavailable Karen Veliz DO Unavailable Encounter Details Date Type Department Care Team Description 09/26/2011 Office Visit-[facility] INTERFACE [facility] DEPT Social History Tobacco Use Types Packs/Day Years Used Date Smoking Tobacco: Never Alcohol Use Standard Drinks/Week Comments No 0 (1 standard drink = 0.6 oz pure alcoho l) Sex Assigned at Date Recorded Not on file documented as of this encounter Progress Notes SY UMP ULTRASOUND - 09/26/2011 2:07 PM CDT Director Of Automation: ADOLFO CURRY Status: Unsigned Encounter: 2011-09-26 14:07:00.000 [...] on filedocumented in this encounter Care Teams Babysitter Relationship Specialty Start Date End Date Andreas Patel MD PCP - General 10/05/11 10/07/11 [facility] 2019 [place] [address] Caitlin Ballesteros MD PCP - General 10/08/11 08/11/13 Lisa Dewitt DO PCP - General 08/12/13 07/15/14 [facility] [address] [place], [place] [id number] Clinic - [facility], PCP - General 07/16/14 03/11/15 [facility] 2019 [place] [address] Keri Elias PCP - General Family Practice 03/12/15 9 MD Isaías Glez Mitchell PCP - General Family Practice 11/14/18 04/02/20 MD Stevie Karen Veliz, PCP - General Family Medicine 04/03/20 DO 2019 [place] [address] Bebeto Roth MD Orthopedics 07/09/14 [facility] [place] [address] Astrid Rios PA-C Physician Tunnel Elastic Operator Zigzag Physician Tunnel Elastic Operator Zigzag - 07/09/14 Surgical Francisco Metz Assigned PCP 07/04/19 02/01/20 MD Stevie [address] [address] Kenton Katz Assigned PCP 02/02/20 08/27/20 MD Felib[place] NO INFO AVAILABLE Kenton Katz Assigned Endocrinology 08/28/20 07/23/21 MD [place] Provider NO INFO AVAILABLE Karen Veliz, Assigned PCP 08/28/20 DO 2019 [place] [address] documented as of this encounter
--- OUTSIDE RECORDS SUMMARY | 2022-01-23 08:29 | XMS_ITS | Encounter Summary ---
:1980 Author Organization [place] Address [facility] [place] [address] Care Team Providers Name Role Phone Unavailable Primary Care Provider Unavailable Encounter Details Date Type Department Care Team Description 04/20/2011 Results Only [facility] Radha De La Fuente 500 [facility] MD Андрей [place], [place] [address] [phone] Social History Tobacco Use Types Packs/Day Years Used Date Smoking Tobacco: Never Assessed Sex Assigned at Date Recorded Not on file documented as of this encounter Plan of Treatment Not on filedocumented as of this encounter Procedures Procedure Name Priority Date/Time Associated Diagnosis Comme nts RUBELLA ANTIBODY Routine 04/20/2011 4:32 PM Resul ts for this IGG SOFTWARE PRODUCT SPECIALIST procedure are i n the results section. documented in this encounter Results Rubella antibody IgG (04/20/2011 4:32 PM SOFTWARE PRODUCT SPECIALIST) P athologist Signature Rubella PALOMA 48 IU/mL [facility] LABS Comment: Interpretation: Positive, Immun e Specimen Anatomical Collection Method Collection Time Receive d Time (Source) Location / / Volume Laterality 04/20/2011 4:32 PM 2 4:37 SOFTWARE PRODUCT SPECIALIST PM SOFTWARE PRODUCT SPECIALIST Radha Navarro MD LAB - BLOOD ORDERABLES Performing Organization Address City/State/ZIP Code Phon e Number [facility] [address] [place] [address] [facility] LABS documented in this encounter Visit Diagnoses Not on filedocumented in this encounter
--- OUTSIDE RECORDS SUMMARY | 2022-01-23 08:29 | XMS_ITS | Encounter Summary ---
:1980 Author Organization [place] Address [address] [facility] [place] [address] Care Team Providers Name Role Phone Andreas Patel MD Primary Care Provider Caitlin Ballesteros MD Primary Care Provider Lisa Dewitt DO Primary Care Provider Bebeto Roth MD Unavailable Astrid Rios PA-C Unavailable [facility] Primary Care Provider + Keri Elias MD Primary Care Provider Unavailable Francisco Metz MD Primary Care Provider [phone] Francisco Metz MD Unavailable [phone] Kenton Katz MD Unavailable Unavailable Karen Veliz DO Primary Care Provider Kenton Katz MD Unavailable Unavailable Karen Veliz DO Unavailable Encounter Details Date Type Department Care Team Description 06/23/2011 Office Visit-[facility] INTERFACE P DEPT Social History Tobacco Use Types Packs/Day Years Used Date Smoking Tobacco: Never Assessed Sex Assigned at Date Recorded Not on file documented as of this encounter Progress Notes SY UMP ULTRASOUND - 06/23/2011 9:10 AM CDT Pet Care Associate: ADOLFO CURRY Status: Amended, Final Encounter: 2011-06-23 09:10:00.000 Type: FM Ultrasound Active Problems Acne Vulgaris (706.1) Anxiety (300.00) Care Coordinated By; Tier 0 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 US 2nd & 3rd Trimester Ultrasound Report Primary MD: Dr Navarro Iron Guardrail Installer: Latesha Harley Indications: survey P: 2 Machine: [employer] 5 Pro FHR: 138 bpm Fluid:Normal Placenta [...] By: August Ontiveros ; 06/27/2011 3:10 PM SPECIAL EDUCATION CLASSROOM AIDE. Signature Signed By: Latesha Harley ; 06/23/2011 9:48 AM SPECIAL EDUCATION CLASSROOM AIDE. Signed By: August Ontiveros M.D.; 06/27/2011 3:11 PM SPECIAL EDUCATION CLASSROOM AIDE; Author. IAL EDUCATION CLASSROOM AIDE documented in this encounter Plan of Treatment Not on filedocumented as of this encounter Visit Diagnoses Not on filedocumented in this encounter Care Teams Developer Evangelist Relationship Specialty Start Date End Date Andreas Patel MD PCP - General 10/05/11 10/07/11 [facility] [address] [place] [address] Caitlin Ballesteros MD PCP - General 10/08/11 08/11/13 Lisa Dewitt DO PCP - General 08/12/13 07/15/14 [facility] [address] [place] [address] [facility] PCP - General 07/16/14 03/11/15 [facility] [address] [place] [address] Keri Elias PCP - General Family Practice 03/12/15 9 MD Isaías Glez Mitchell PCP - General Family Practice 11/14/18 04/02/20 MD Stevie Karen Veliz PCP - General Family Medicine 04/03/20 2019 [place] [address] Bebeto Roth MD Orthopedics 07/09/[address] [place], [place] [address] Astrid Rios PA-C Physician Lead Die Molder Physician Lead Die Molder - 07/09/14 Surgical Francisco Metz Assigned PCP 07/04/19 02/01/20 MD Stevie [place] [address] [place] [address] Kenton Katz Assigned PCP 02/02/20 08/27/20 MD [place]ib[place] NO INFO AVAILABLE Kenton Katz Assigned Endocrinology 08/28/20 07/23/21 MD [place]ib[place] Provider NO INFO AVAILABLE Karen Veliz, Assigned PCP 08/28/20[address] [place] [address] documented as of this encounter
--- OUTSIDE RECORDS SUMMARY | 2022-01-23 08:29 | XMS_ITS | Encounter Summary ---
:1980 Author Organization [place] Address [address] [facility] [place] [address] Care Team Providers Name Role Phone Unavailable [...] Navarro MD - 05/09/2011 2:40 PM CDT Prototype Machinist: Radha Navarro Status: Final Encounter: 09 May 2011 Type: FM Letters Autosend Letters Ms. AZUL TELLEZ [address] [place] [address] May 09, 2011 Dear Ms. AZUL TELLEZ [...] PM - US OB LIMITED Principal Result Legal Secretary Receptionist: ZULMA FOREMAN DR&& EXAM: OB ultrasound 04/28/2011. [...] and agree with the findings. Performed at: [place]. Signature Signed By: Radha Navarro MD,Resident; 05/09/2011 2:40 PM BLOCK AND CASE MAKER; Author. documented in this encounter Plan of Treatment Not on filedocumented as of this encounter Visit Diagnoses Not on filedocumented in this encounter
--- OUTSIDE RECORDS SUMMARY | 2022-01-23 08:29 | XMS_ITS | Encounter Summary ---
:1980 Author Organization [place] Address [address] [place] [address]. [place] [address] Care Team Providers Name Role Phone Andreas Patel MD Primary Care Provider Reason for Visit Reason Comments Contractions every 6-12 minutes, became m ore painful the last two hours Auth/Cert - Closed Specialty Diagnoses / Procedures Referred By Contact Refer red To Contact preschool assistant director Diagnoses maternity*vincent: 09/19/2011/labor [id number] Z[address]ur pet[address] [place] [address] Phone: Referral ID Status Reason Start Date Expiration Date Visits Requ ested Visits Authorized [id number] Closed 1 1 Encounter Details Date Type Department Care Team Description 10/04/2011 - Hospital Encounter JOSE CRUZ SERNA Weston, , subsequent (Prima ry Dx); 10/07/[address] [place] [address] [place] [address] [address] [place] [address] Social History Tobacco Use Types [...] from the original note were not included. [facility] Post- Discharge Summary Jocelin Garg Age: [age] year old Date of : 1980 Date of Admission: 10/04/2011 Date of Discharge:: 10/07/2011 Admitting Physician: August Ontiveros MD Discharge Physician: Dr. Boyer. Home clinic: [facility] Admission Diagnoses: Discharge Diagnosis: Normal spontaneous [...] Discharge Disposition: Discharged to home Miracle Teran,PGY1 [facility]. Attestation: This patient has been seen and evaluated by me, Aditi Boyer MD. Seen and discussed with the resident Dr Teran and Kenia's Team. I agree with the findings and plan in this note. I have reviewed today's vital signs, medications, labs and imaging. Aditi Boyer MD [facility] documented in this encounter Discharge Instructions Discharge InstructionsBeto Ordonez RN - 10/07/2011 1:53 PM CDT [facility] Vaginal Delivery or Discharge Instructions Activity: Go back to your normal activities, except pelvic rest for 6 weeks. Diet: You may eat a regular diet. Drink plenty of fluids. Call your Doctor or Anesthetic Assistant if you have any of these symptoms: [...] [facility] PGY 1 Pager No. [phone] Attestation: This patient has been seen and [...] d/c tomorrow on PPD#2. Valarie Moore MD [facility] Jenae Wilson RN - 10/05/2011 11:06 [...] Primary care provider: Andreas Patel Home Clinic: [facility] On 10/05/2011 at 0542, this 31 [...] PGY-2 Nurse: KENNY Jonas PGY-2 Family Medicine [facility], [place] Pager : [phone] August Ontiveros MD Faculty [facility] August Ontiveros MD - 10/05/2011 4:08 AM CDT [facility] Intrapartum Progress Note October 05, 2011 [...] AM CDT October 05, 2011 Jocelin Garg [id number] OB Admit History & Physical Ms. Irma Garg is a patient of Andreas Ramsay and partner Amanda from [facility]. She is a 31 year old [...] normal range. Labs ABO O 04/20/2011 , H3hhbVO Pos 04/20/2011 Hemoglobin Date Value Range Status [...] lactated ringers solution ??? penicillin G potassium [id number] UNIT injection ??? lactated ringers infusion ??? [...] Individualization/Patient-Specific Goal (Adult,OB,Behavioral The patient and/or their senior customer service representative will achieve their patient-specific goals related to the plan of care. The patient-specific goals include: To discharge today. Patient discharged today. Discharge instructions reviewed and home medications given with instruction. Patient verbalized understanding and denied further questions. Plan of Care - Gina Gordon RN - 10/06/2011 9:46 PM CDT Problem: IP GENERAL POC-ADULT,OB,BEHAVIORAL FVCPM Goal: Individualization/Patient-Specific Goal (Adult,OB,Behavioral The patient and/or their senior customer service representative will achieve their patient-specific goals related [...] Individualization/Patient-Specific Goal (Adult,OB,Behavioral The patient and/or their senior customer service representative will achieve their patient-specific goals related [...] Outcome: Improving Data: Jocelin Garg transferred to [facility] via wheelchair at 830. Baby transferred [...] e Number [facility] [address] [place] [address] [facility] documented in this encounter Visit Diagnoses [...] be given until delivery. penicillin G potassium [id number] UNIT inje ction Starting on Mon10/05/11 at [...] MG per ta blet 1-2 tablet 30 (z Missed (do not use) - Provider: Jenae Wilson RN - Reason: Other)2129 (Given - Provider: Marcella Rosas RN - Comment: per pt request) 1143 (Given - Provider: Italia Loving RN)2111 (Given - Provider: Gina Gordon RN) 0820 (Given - Provider: Beto Ordonez RN) 1-2 tablet, Oral, 2 TIMES DAILY, First d ose on Mon10/05/11 at 0800, Start with 1 tablet PO BID, If no bowel movement in 24 hours, increase to 2 tablets po BID. Hold for loose stools. sodium chloride (PF) 0.9% PF flush 3 mL (CANCELED) 045 3 (z Missed (do not use) - Provider: Jocelin nAn RN - Reason: IV Infusing)0820 (Given - [...] Beto Ordonez, KENNY)1304 (Given - Provider: Beto Ordonez RN) 650 mg, Oral, EVERY 4 HOURS [...] in pt room)1004 (Given - Provider: Beto Ordonez, KENNY) 400-800 mg, Oral, EVERY 6 HOURS PRN, [...] (CANCELED) 0208 (G iven - Provider: Jocelin Ann, KENNY) 4 mg, Intravenous, EVERY 6 HOURS PRN, na usea, vomiting, for 2 Minutes, Starting Mon10/05/11 at 0059, If nausea not resolved in 15 minutes, notify provider before proceeding to prochlorperazine (if ordered). ondansetron (ZOFRAN) injection 4 mg (CANCELED) 1106 (G iven - Provider: Jenae Wilson, KENNY)1701 (Given - Provider: Marcella Rosas, KENNY) 4 mg, Intravenous, EVERY 6 HOURS PRN, [...] discretion. documented in this encounter Care Teams Missionary Coordinator Relationship Specialty Start Date End Date Andreas Patel MD PCP - General 10/05/11 10/07/11 [facility] [address] [place] [address] documented as of this encounter
--- OUTSIDE RECORDS SUMMARY | 2022-01-23 08:29 | XMS_ITS | Encounter Summary ---
:1980 Author Organization [place] Address [address] [place] [address] Care Team Providers Name Role Phone Andreas Patel MD Primary Care Provider Caitlin Ballesteros MD Primary Care Provider Lisa Dewitt DO Primary Care Provider Bebeto Roth MD Unavailable Astrid Rios PA-C Unavailable [facility] Primary Care Provider + Keri Elias MD Primary Care Provider Unavailable Francisco Metz MD Primary Care Provider [phone] Francisco Metz MD Unavailable [phone] Kenton Katz MD Unavailable Unavailable Encounter Details Date Type Department Care Team Description 08/04/2011 PRE VISIT UR ANESTHESIA Susana Quinteros MD [address] [facility], [address] [place], [place] [address] [place], [place] [phone] (Wo rk) Social History Tobacco Use Types Packs/Day Years Used Date Smoking Tobacco: Never Assessed Sex Assigned at Date Recorded Not on file COVID-19 Exposure Response Date Recorded In the last month, have you been in contact Unable to assess 01/23/2020 7:04 AM MOP MAKER with someone who was confirmed or suspected to have Coronavirus / COVID-19? documented as of this encounter Plan of Treatment Not on filedocumented as of this encounter Visit Diagnoses Not on filedocumented in this encounter Care Teams Call Center Nurse Relationship Specialty Start Date End Date Andreas Patel MD PCP - General 10/05/11 10/07/11 [facility] [address] [place] [phone] Caitlin Ballesteros MD PCP - General 10/08/11 08/11/13 Lisa Dewitt DO PCP - General 08/12/13 07/15/14 [facility] [address] [place] [address] [phone] Clinic - Angela Laboy PCP - General 07/16/14 6 [facility] [address] [place] [address] Keri Elias PCP - General Family Practice 03/12/15 9 MD Isaías Glez Mitchell PCP - General Family Practice 11/14/18 04/02/20 MD Stevie Bebeto Roth MD Orthopedics 07/09/[address] [place] [address]78344 Astrid Rios PA-C Physician Operations General Agent Physician Operations General Agent - 07/09/14 Surgical Francisco Mezt Assigned PCP 07/04/19 02/01/20 MD Stevie [place] [address] [address] [address] Kenton Katz Assigned PCP 02/02/20 08/27/20 MD Feliberto NO INFO AVAILABLE documented as of this encounter
--- OUTSIDE RECORDS SUMMARY | 2022-01-23 08:29 | XMS_ITS | Encounter Summary ---
:1980 Author Organization [place] Address [address] [facility] [place] [address] Care Team Providers Name Role Phone Unavailable Primary Care Provider Unavailable Encounter Details Date Type Department Care Team Description 08/04/2011 Historic Results [facility] Leanne Navarro Tumacacori-Carmen MD Андрей [address] [place] [address] [place] [address] Social History Tobacco Use Types Packs/Day Years [...] 1 Hr (LabDAQ) (08/04/2011 12:00 PM CDT) [facility] gist Method Time Signature Glu [...]
--- OUTSIDE RECORDS SUMMARY | 2022-01-23 08:29 | XMS_ITS | Encounter Summary ---
:1980 Author Organization [place] Address [address] [facility] [place] [address] Care Team Providers Name Role Phone Andreas Patel MD Primary Care Provider Caitlin Ballesteros MD Primary Care Provider Lisa Dewitt DO Primary Care Provider Bebeto Roth MD Unavailable Astrid Rios PA-C Unavailable [facility] Primary Care Provider + Keri Elias MD Primary Care Provider Unavailable Francisco Metz MD Primary Care Provider [phone] Francisco Metz MD Unavailable [phone] Kenton Katz MD Unavailable Unavailable Karen Veliz DO Primary Care Provider Kenton Katz MD Unavailable Unavailable Karen Veliz DO Unavailable Encounter Details Date Type Department Care Team Description 10/06/2011 Office Visit-P INTERFACE P DEPT Greta Patel v, MD [facility] [address] [place], [place] [phone] (Wo rk) Social History Tobacco Use Types Packs/Day Years Used Date Smoking Tobacco: Never Alcohol Use Standard Drinks/Week Comments No 0 (1 standard drink = 0.6 oz pure alcoho l) Sex Assigned at Date Recorded Not on file documented as of this encounter Progress Notes Andreas Patel MD - 10/06/2011 1:20 PM CDT Consulting Actuary: AmandaJason parkurav Status: Signed Encounter: 2011-10-06 13:20:00.000 Type: FM Visit Reason For Visit This 31 year patient presents for {{{[ ]}}}[ preventive health visit ][ diabetes visit ]. {{{Pulley Mortiser Operator used this visit; [ Hmong ][ Cambodian ][ Haitian ][ Oromo ][ Mongolian ][ Other: ]}}} {{{Name of geoduck diver [ ]. Pulley Mortiser Operator's Phone number: [ [phone] ][ [phone] ][ [phone] ][ [phone] ]-[ ]-[ ] }}} {{{Minor without Guardian. Verbal consent obtained from [ Mother ] [ Father ] [ ] by front office agent staff [ ]. Contact number: [ [phone] ] [ [phone] ] [ [phone] ][ [phone] ] [ ] }}} {{{PHQ2 completed and [...] OB BIOPHYS PROFILE W/O NST Principal Result Pulley Mortiser Operator: OSWALDO ARRIAGA PROFESSOR&& Biophysical profile. 09/30/11. Comparisons: [...] and agree with the findings. Performed at: [facility]. Plan {{{Patient participated in and [ agrees ][ disagrees ] with today's plan.}}} {{{Patient's family participated in and [ agree ][ disagree ] with today's plan.}}} {{{Patient and family participated in and [ agree ][ disagree ] with today's plan.}}}. Signature Signed By: Andreas Patel M.D.,Resident; 10/10/2011 11:03 AM CONTRACT ADMINISTRATIVE ASSISTANT. documented in this encounter Plan of Treatment Not on filedocumented as of this encounter Visit Diagnoses Not on filedocumented in this encounter Care Teams Director Of Personnel Relationship Specialty Start Date End Date Andreas Patel MD PCP - General 10/05/11 10/07/11 [facility] [address] [place] [phone] Caitlin Ballesteros MD PCP - General 10/08/11 08/11/13 Lisa Dewitt DO PCP - General 08/12/13 07/15/14 [facility] [address] [place] [address] [phone] Clinic - [facility] PCP - General 07/16/14 03/11/15 [facility] [address] [place] [address] Keri Elias PCP - General Family Practice 03/12/15 9 MD Isaías Glez Mitchell PCP - General Family Practice 11/14/18 04/02/20 MD Stevie Karen Veliz, PCP - General Family Medicine 04/03/20 [address] [place] [phone] (Fax) Bebeto Roth MD Orthopedics 07/09/14 [facility] [place] [address] Astrid Rios PA-C Physician Pedigree Tracer Physician Pedigree Tracer - 07/09/14 Surgical Francisco Metz Assigned PCP 07/04/19 02/01/20 MD Stevie [place] [address] [address] [address] Kenton Katz Assigned PCP 02/02/20 08/27/20 MD Feliberto NO INFO AVAILABLE Kenton Katz Assigned Endocrinology 08/28/20 07/23/21 MD Feliberto Provider NO INFO AVAILABLE Karen Veliz, Assigned PCP 08/28/20 DO 2019 [address] [place] [address] documented as of this encounter
--- OUTSIDE RECORDS SUMMARY | 2022-01-23 08:29 | XMS_ITS | Encounter Summary ---
:1980 Author Organization [place] Address [address] [facility] [address] Care Team Providers Name Role Phone Andreas Patel MD Primary Care Provider Caitlin Ballesteros MD Primary Care Provider Lisa Dewitt DO Primary Care Provider Bebeto Roth MD Unavailable Astrid Rios PA-C Unavailable [facility] Primary Care Provider + Keri Elias MD Primary Care Provider Unavailable Francisco Metz MD Primary Care Provider [phone] Francisco Metz MD Unavailable [phone] Kenton Katz MD Unavailable Unavailable Karen Veliz DO Primary Care Provider Kenton Katz MD Unavailable Unavailable Karen Veliz DO Unavailable Encounter Details Date Type Department Care Team Description 09/22/2011 Office Visit-P INTERFACE P DEPT Nora Boyer MD [facility] [address] [place], [place] [phone] (Wo rk) Social History Tobacco Use Types Packs/Day Years Used Date Smoking Tobacco: Never Alcohol Use Standard Drinks/Week Comments No 0 (1 standard drink = 0.6 oz pure alcoho l) Sex Assigned at Date Recorded Not on file documented as of this encounter Progress Notes Aditi Boyer MD - 09/22/2011 2:00 PM CDT Workers Compensation Claims Specialist: Aditi Boyer Status: Final Encounter: 2011-09-22 14:00:00.000 [...] By: Aditi Boyer M.D.; 09/26/2011 2:06 PM CATHODE RAY TUBE SALVAGE PROCESSOR. documented in this encounter Plan of Treatment Not on filedocumented as of this encounter Visit Diagnoses Not on filedocumented in this encounter Care Teams Supervisor Natural Gas Plant Relationship Specialty Start Date End Date Andreas Patel MD PCP - General 10/05/11 10/07/11 [facility] [address] [place] [address] Caitlin Ballesteros MD PCP - General 10/08/11 08/11/13 Lisa Dewitt DO PCP - General 08/12/13 07/15/14 [facility] [address] [place], [place] [phone] Clinic - [facility] PCP - General 07/16/14 03/11/15 [facility] [address] [place] [address] Keri Elias PCP - General Family Practice 03/12/15 9 MD Isaías Glez Mitchell PCP - General Family Practice 11/14/18 04/02/20 MD Stevie Karen Veliz, PCP - General Family Medicine 04/03/20 DO 2019 [place] [address] Bebeto Roth MD Orthopedics 07/09/14 [facility] [place] [address] Astrid Rios PA-C Physician Jawbone Breaker Physician Jawbone Breaker - 07/09/14 Surgical Francisco Metz Assigned PCP 07/04/19 02/01/20 MD Stevie [place] [address] [address] [address] Kenton Katz Assigned PCP 02/02/20 08/27/20 MD Feliberto NO INFO AVAILABLE Kenton Katz Assigned Endocrinology 08/28/20 07/23/21 MD Feliberto Provider NO INFO AVAILABLE Karen Veliz, Assigned PCP 08/28/20 DO [address] [place] [address] documented as of this encounter
--- OUTSIDE RECORDS SUMMARY | 2022-01-23 08:29 | XMS_ITS | Encounter Summary ---
:1980 Author Organization [place] Address [address] [facility] [place] [address] Care Team Providers Name Role Phone Andreas Patel MD Primary Care Provider Caitlin Pozo MD Primary Care Provider Lisa Dewitt DO Primary Care Provider Bebeto Roth MD Unavailable Astrid Rios PA-C Unavailable [facility] Primary Care Provider + Keri Elias MD Primary Care Provider Unavailable Francisco Metz MD Primary Care Provider [phone] Francisco Metz MD Unavailable [phone] Kenton Katz MD Unavailable Unavailable Karen Veliz DO Primary Care Provider Kenton Katz MD Unavailable Unavailable Karen Veliz DO Unavailable Encounter Details Date Type Department Care Team Description 09/01/2011 Office Visit-[facility] INTERFACE [facility] DEPT Social History Tobacco Use Types Packs/Day Years Used Date Smoking Tobacco: Never Assessed Sex Assigned at Date Recorded Not on file documented as of this encounter Progress Notes SY [facility] ULTRASOUND - 09/01/2011 2:00 PM CDT Bond Clerk: ADOLFO CURRY Status: Amended, Final Encounter: 2011-09-01 14:00:00.000 Type: FM Ultrasound Active Problems Acne Vulgaris (706.1) Anxiety (300.00) Care Coordinated By; Tier 0 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 US 2nd & 3rd Trimester Ultrasound Report Primary MD: Dr Pozo Manufacturing Coordinator: Latesha Harley Indications: Growth on prev. u/s = 5% P: 2 Machine: Informatics In Context 5 Pro FHR: 152 bpm Fluid:Normal TJ: [...] By: August Ontiveros ; 09/07/2011 2:51 PM AWNING ERECTOR. Signature Signed By: Latesha Harley ; 09/01/2011 2:51 PM AWNING ERECTOR. Signed By: August Ontiveros M.D.; 09/07/2011 2:51 PM AWNING ERECTOR; Author. NG ERECTOR documented in this encounter Plan of Treatment Not on filedocumented as of this encounter Visit Diagnoses Not on filedocumented in this encounter Care Teams Manager Clinical Applications Relationship Specialty Start Date End Date Andreas Patel MD PCP - General 10/05/11 10/07/11 [facility] [address] [place] [address] Caitlin Pozo MD PCP - General 10/08/11 08/11/13 Lisa Dewitt DO PCP - General 08/12/13 07/15/14 [facility] [address] [place], [place] [phone] Clinic - [facility], PCP - General 07/16/14 03/11/15 [facility] [address] [place] [address] Keri Elias PCP - General Family Practice 03/12/15 9 MD Isaías Glez Mitchell PCP - General Family Practice 11/14/18 04/02/20 MD Stevie Karen Veliz, PCP - General Family Medicine 04/03/20 DO 2019 [place] [address] Bebeto Roth MD Orthopedics 07/09/14 [facility] [place] [address] Astrid Rios PA-C Physician Beater Out Physician Beater Out - 07/09/14 Surgical Francisco Mezt Assigned PCP 07/04/19 02/01/20 MD Stevie [address] [address] Kenton Katz Assigned PCP 02/02/20 08/27/20 MD Feliberto NO INFO AVAILABLE Kenton Katz Assigned Endocrinology 08/28/20 07/23/21 MD Feliberto Provider NO INFO AVAILABLE Karen Veliz, Assigned PCP 08/28/20 DO [address] [place], [place] [id number] documented as of this encounter
--- OUTSIDE RECORDS SUMMARY | 2022-01-23 08:29 | XMS_ITS | Encounter Summary ---
:1980 Author Organization [place] Address [address] [facility] [place] [address] Care Team Providers Name Role Phone Unavailable [...] Navarro MD - 04/28/2011 5:23 PM CDT Straight Line Edger: Radha Navarro Status: Amended, Final Encounter: 28 Apr 2011 Type: FM Letters [employer] Letters Ms. AZUL TELLEZ [address] [place] [address] April 28, 2011 Dear Ms. AZUL TELLEZ [...] CHPCR Negative for C. trachomatis rRNA by bed and breakfast cook mediated amplification. A negative result by bed and breakfast cook mediated amplification does not preclude the presence of C. trachomatis infection because results are dependent on proper and adequate collection, absence of inhibitors, and sufficient rRNA to be detected. N gnorrhoeae PCR 20 Apr 2011 04:32 PM - N gonorrhoeae PCR Specimen Description Cervical GCPCR Negative for N. gonorrhoeae rRNA by bed and breakfast cook mediated amplification. A negative result by bed and breakfast cook mediated amplification does not preclude the presence of N. gonorrhoeae infection because results are dependent on proper and adequate collection, absence of inhibitors, and sufficient rRNA to be detected. Cytopathology 20 Apr 2011 12:00 AM - Cytopathology PAP NIL Acc#: [id number] Signed: 04/22/2011 13:01 MR#: [id number] SPECIMEN/STAIN PROCESS: Pap imaged thin layer prep [...] adenocarcinomas or other cancers. TESTING LAB LOCATION: [facility], [address] [address], Processed and screened at [facility], [facility]. Orders Clotrimazole 1 % Cream ([place]);INSERT 1 APPLICATORFUL INTRAVAGINALLY AT BEDTIME NIGHTLY; Qty10; R0; Rx Amended By: Radha Navarro ; 04/28/2011 5:25 PM SUPERVISOR WATER TREATMENT PLANT. Signature Signed By: Radha Navarro MD,Resident; 04/28/2011 5:24 PM SUPERVISOR WATER TREATMENT PLANT; Author. Signed By: Radha Navarro MD,Resident; 04/28/2011 5:29 PM SUPERVISOR WATER TREATMENT PLANT; Author. documented in this encounter Plan of Treatment Not on filedocumented as of this encounter Visit Diagnoses Not on filedocumented in this encounter
--- OUTSIDE RECORDS SUMMARY | 2022-01-23 08:29 | XMS_ITS | Encounter Summary ---
:1980 Author Organization [place] Address [address] [facility] [place] [address] Care Team Providers Name Role Phone Unavailable Primary Care Provider Unavailable Encounter Details Date Type Department Care Team Description 05/30/2011 Office Visit-[facility] INTERFACE [facility] DEPT Greta Patel v, MD [facility] [address] [place] [address] (Wo rk) Social History Tobacco Use Types Packs/Day Years Used Date Smoking Tobacco: Never Assessed Sex Assigned at Date Recorded Not on file documented as of this encounter Progress Notes Andreas Patel MD - 05/30/2011 2:40 PM CDT Market Research Worker: Andreas Patel Status: Final Encounter: 30 May 2011 Type: FM Letters [facility] Orders Ondansetron 4 MG Tablet Dispersible;TAKE 1 TABLET BEDTIME; Qty60; R1; Rx. Loratadine 10 MG Tablet;TAKE 1 TABLET DAILY NEEDED; Qty60; R1; Rx. Signature Signed By: Andreas Patel M.D.,Resident; 05/30/2011 6:10 PM BUILDING INSULATION INSTALLER. documented in this encounter Plan of Treatment Not on filedocumented as of this encounter Visit Diagnoses Not on filedocumented in this encounter
--- OUTSIDE RECORDS SUMMARY | 2022-01-23 08:29 | XMS_ITS | Encounter Summary ---
:1980 Author Organization [place] Address [facility] [place] [address] Care Team Providers Name Role Phone Unavailable Primary Care Provider Unavailable Encounter Details Date Type Department Care Team Description 09/08/2011 Historic Results [facility] Andreas Patel MD Clinic [facility] [address] [place] [address], [address] [place] [phone] (Wo rk) Social History Tobacco Use Types [...]
--- OUTSIDE RECORDS SUMMARY | 2022-01-23 08:29 | XMS_ITS | Encounter Summary ---
:1980 Author Organization [place] Address [address] [facility] [place] [address] Care Team Providers Name Role Phone Unavailable Primary Care Provider Unavailable Encounter Details Date Type Department Care Team Description 06/21/2011 Historic Results [facility] Leanne Navarro [place] MD Андрей [address] [place], [place] [phone] (Work) [place] [address] Social History Tobacco Use Types Packs/Day Years [...] Prep (LabDAQ) (06/21/2011 4:05 PM CDT) [facility] Method Time Signature Yeast Wet Prep None [...]
--- OUTSIDE RECORDS SUMMARY | 2022-01-23 08:29 | XMS_ITS | Encounter Summary ---
:1980 Author Organization [place] Address [address] [facility] [place] [address] Care Team Providers Name Role Phone Unavailable Primary Care Provider Unavailable Encounter Details Date Type Department Care Team Description 09/30/2011 Hospital Encounter M [facility] Cindy Pope MD Imaging [facility] [address] [facility] [place] [address] [facility] [id number] [place] [address] (Wo rk) Social History Tobacco [...]
--- OUTSIDE RECORDS SUMMARY | 2022-01-23 08:29 | XMS_ITS | Encounter Summary ---
:1980 Author Organization [place] Address [facility] [place] [address] Care Team Providers Name Role Phone Unavailable Primary Care Provider Unavailable Encounter Details Date Type Department Care Team Description 09/08/2011 Results Only INTERFACED REPORT Andreas Patel MD [facility] [address] [place] [address] (Wo rk) Social History Tobacco [...] B strep PCR (09/08/2011 4:47 PM CDT) [facility] Method Time Signature Group B Strep Vaginal [facility] PCR Spec Fahad Rectal Group B Strep Positive: GBS DNA detected, presumed positive for GBS. [facility] PCR Assay performed on incubated broth culture of specimen [facility] MICROBIOLOGY SmartCycler(R) real-time PCR. Specimen Anatomical Collection Method Collection Time Receive d Time (Source) Location / / Volume Laterality 09/08/2011 4:47 PM 2 4:52 CDT PM CDT Andreas Patel MD LAB - MICRO GENERAL ORDERABL ES Performing Organization Address City/State/ZIP Code Phon e Number [facility] [address] [place] [address] [facility] MICROBIOLOGY documented in this encounter Visit Diagnoses Not on filedocumented in this encounter
--- OUTSIDE RECORDS SUMMARY | 2022-01-23 08:29 | XMS_ITS | Encounter Summary ---
:1980 Author Organization [employer] Address [address] [place] [address] Care Team Providers Name Role Phone Unavailable Primary Care Provider Unavailable Encounter Details Date Type Department Care Team Description 09/08/2011 Results Only INTERFACED REPORT Andreas Patel MD [facility] [address] [place], [place] [id number] (Wo rk) Social History Tobacco Use Types [...] Component Value Ref Test Analysis Performed At [facility] Range Method Time Signature Specimen Vaginal Rectal [...] Code Phon e Number [facility] [address] [place] [address] [facility] MICROBIOLOGY documented in this encounter Visit Diagnoses Not on filedocumented in this encounter
--- OUTSIDE RECORDS SUMMARY | 2022-01-23 08:29 | XMS_ITS | Encounter Summary ---
:1980 Author Organization [place] Address [facility] [place] [address] Care Team Providers Name Role Phone Unavailable Primary Care Provider Unavailable Encounter Details Date Type Department Care Team Description 06/21/2011 Results Only [facility] PHYS Radha De La Fuente [address] [facility] MD Андрей [place], [place] [address] [phone] Social History Tobacco Use Types Packs/Day Years [...] Ref Test Analysis Performed At [facility] Range Method Time Signature Specimen Cervical [facility] Descrip N Gonorrhea Negative for N. gonorrhoeae rRNA by ic designer standard cells mediated amplification. [facility] PCR A negative result [...] City/State/ZIP Code Phon e Number [facility] [address] [address] [facility] MICROBIOLOGY documented in this encounter Visit Diagnoses Not on filedocumented in this encounter
--- OUTSIDE RECORDS SUMMARY | 2022-01-23 08:29 | XMS_ITS | Encounter Summary ---
:1980 Author Organization [place] Address [address] [facility] [place] [address] Care Team Providers Name Role Phone Andreas Patel MD Primary Care Provider Caitlin Ballesteros MD Primary Care Provider Lisa Dewitt DO Primary Care Provider Bebeto Roth MD Unavailable Astrid Rios PA-C Unavailable [facility] Primary Care Provider + Keri Elias MD Primary Care Provider Unavailable Francisco Metz MD Primary Care Provider [phone] Francisco Metz MD Unavailable [phone] Kenton Katz MD Unavailable Unavailable Karen Veliz DO Primary Care Provider Kenton Katz MD Unavailable Unavailable Karen Veliz DO Unavailable Encounter Details Date Type Department Care Team Description 09/08/2011 Office Visit-P INTERFACE P DEPT Karel Ontiveros MD [address] [place] [address] (Wo rk) Social History Tobacco Use Types Packs/Day Years Used Date Smoking Tobacco: Never Assessed Sex Assigned at Date Recorded Not on file documented as of this encounter Progress Notes August Ontiveros MD - 09/08/2011 3:00 PM CDT Rn Resource Nurse: August Ontiveros Status: Final Encounter: 2011-09-08 15:00:00.000 Type: FM Ultrasound Active Problems Acne Vulgaris (706.1) Anxiety (300.00) Care Coordinated By; Tier 0 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 US 2nd & 3rd Trimester Ultrasound Report Primary MD: Lesli/Amanda Lean Six Sigma Black Belt: August Ontiveros Indications: size less than dates follow up Machine: Altocom 5 Pro FHR: 150s Fluid:Normal TJ: 14.5 [...] By: August Ontiveros M.D.; 09/09/2011 3:11 PM CLASSIFICATION COUNSELOR; Author. SIFICATION COUNSELOR documented in this encounter Plan of Treatment Not on filedocumented as of this encounter Visit Diagnoses Not on filedocumented in this encounter Care Teams Office Bookkeeper Relationship Specialty Start Date End Date Andreas Patel MD PCP - General 10/05/11 10/07/11 [facility] [address] [place] [address] Caitlin Ballesteros MD PCP - General 10/08/11 08/11/13 Lisa Dewitt DO PCP - General 08/12/13 07/15/14 [facility] [address] [place] [address] [facility], PCP - General 07/16/14 03/11/15 [facility] [address] [place] [address] Keri Elias PCP - General Family Practice 03/12/15 MD Isaías Glez Mitchell PCP - General Family Practice 11/14/18 04/02/20 MD Stevie Karen Veliz, PCP - General Family Medicine 04/03/20 DO [address] [place] [address] Bebeto Roth MD Orthopedics 07/09/[address] [address] Astrid Rios PA-C Physician Accounting Coordinator Physician Accounting Coordinator - 07/09/14 Surgical Francisco Metz Assigned PCP 07/04/19 02/01/20 MD Stevie [address] [address] Kenton Katz Assigned PCP 02/02/20 08/27/20 MD Feliberto NO INFO AVAILABLE Kenton Katz Assigned Endocrinology 08/28/20 07/23/21 MD Feliberto Provider NO INFO AVAILABLE Karen Veliz, Assigned PCP 08/28/20 DO [address] [place] [phone] documented as of this encounter
--- OUTSIDE RECORDS SUMMARY | 2022-01-23 08:29 | XMS_ITS | Encounter Summary ---
:1980 Author Organization [place] Address [facility] [place] [address] Care Team Providers Name Role Phone Unavailable Primary Care Provider Unavailable Encounter Details Date Type Department Care Team Description 08/18/2011 Historic Results [facility] [address] [place] [address], [address] [place] [phone] (Wo rk) Social History Tobacco Use Types [...] 1:39 PM 2 1:39 CDT PM CDT [facility] LAB - LABDAQ Performing Organization Address City/State/ZIP Code Phon e Number [facility] HISTORICAL RESULTS documented in this encounter Visit Diagnoses Not on filedocumented in this encounter
--- OUTSIDE RECORDS SUMMARY | 2022-01-23 08:29 | XMS_ITS | Encounter Summary ---
:1980 Author Organization [place] Address [address] [facility] [place] [address] Care Team Providers Name Role Phone Unavailable Primary Care Provider Unavailable Encounter Details Date Type Department Care Team Description 04/20/2011 Results Only [facility] PHYS STANDARD Melanie, Radha [address] [facility] MD Андрей [place], [place] [phone] Social History Tobacco Use Types Packs/Day Years Used Date Smoking Tobacco: Never Assessed Sex Assigned at Date Recorded Not on file documented as of this encounter Plan of Treatment Not on filedocumented as of this encounter Procedures Procedure Name Priority Date/Time Associated Diagnosis Comme nts PAP IMAGED THIN Routine 04/20/2011 12:00 AM Resul ts for this LAYER SCREEN WINDOWS MOBILE DEVELOPER procedure are i n the results section. documented in this encounter Results PAP imaged thin layer screen (04/20/2011 12:00 AM WINDOWS MOBILE DEVELOPER) Component Value Ref Test Analysis Performed At [facility] Range Method Time Signature PAP NIL TITA Young Report TITA Acc#: [id number] ?? Signed: 04/22/2011 13:01 ?? MR#: [id number] SPECIMEN/STAIN PROCESS: Pap imaged thin layer prep [...] rcinomas or other cancers. TESTING LAB LOCATION: ??[place] [facility] Data, [facility], [address] ?? [id number], Processed and screened at [facility] Ce ntgiuliano, [facility] Specimen (Source) Anatomical Collection Method Collection Time Re ceived Time Location / / Volume Laterality 04/20/2011 04/21/2011 10:3 2 AM WINDOWS MOBILE DEVELOPER Radha Navarro MD LAB - OPTIME CLINICAL SPECIM EN Performing Organization Address City/State/ZIP Code Phon e Number [facility] documented in this encounter Visit Diagnoses Not on filedocumented in this encounter
--- OUTSIDE RECORDS SUMMARY | 2022-01-23 08:29 | XMS_ITS | Encounter Summary ---
:1980 Author Organization [place] Address [address] [facility] [place] [address] Care Team Providers Name Role Phone Unavailable Primary Care Provider Unavailable Encounter Details Date Type Department Care Team Description 04/20/[address] [facility] Leanne Navarro [place] MD Андрей [address] [place] [address] [place] [address] Social History Tobacco Use Types Packs/Day Years Used Date Smoking Tobacco: Never Assessed Sex Assigned at Date Recorded Not on file documented as of this encounter Plan of Treatment Not on filedocumented as of this encounter Procedures Procedure Name Priority Date/Time Associated Comments Diagnosis WET PREP (LABDAQ) Routine 04/20/2011 4:36 PM Resu lts for this REGIONAL MERCHANDISING MANAGER procedure are i n the results section. URINALYSIS(LABDAQ) Routine 04/20/2011 4:36 PM Res ults for this REGIONAL MERCHANDISING MANAGER procedure are i n the results section. HEMOGLOBIN (HGB) Routine 04/20/2011 4:36 PM Resul ts for this (LABDAQ) REGIONAL MERCHANDISING MANAGER procedure are i n the results section. HCG QUALITATIVE URINE Routine 04/20/2011 3:20 PM Results for this (LABDAQ) REGIONAL MERCHANDISING MANAGER procedure are i n the results section. documented in this encounter Results (ABNORMAL) Hemoglobin (HGB) (LabDAQ) (04/20/2011 4:36 PM REGIONAL MERCHANDISING MANAGER) P athologist Signature Hemoglobin 10.9 (L) 11.7 - [facility] HISTORICAL 15.7 g/dl RESULTS Specimen Anatomical Collection Method Collection Time Receive d Time (Source) Location / / Volume Laterality 04/20/2011 4:36 PM 2 4:36 REGIONAL MERCHANDISING MANAGER PM REGIONAL MERCHANDISING MANAGER Radha Navarro MD LAB - LABDAQ Performing Organization Address [facility]/ZIP Code Phon e Number [facility] HISTORICAL RESULTS (ABNORMAL) Urinalysis(LabDAQ) (04/20/2011 4:36 PM REGIONAL MERCHANDISING MANAGER) [facility] Method Time Signature Specific [place] 1.025 1.005 - [facility] HISTORICA L Urine [...] Volume Laterality 04/20/2011 4:36 PM 2 4:36 REGIONAL MERCHANDISING MANAGER PM REGIONAL MERCHANDISING MANAGER Radha Navarro MD LAB - LABDAQ Performing Organization Address [facility]/ZIP Code Phon e Number [facility] HISTORICAL RESULTS Wet Prep (LabDAQ) (04/20/2011 4:36 PM REGIONAL MERCHANDISING MANAGER) [facility] Method Time [facility] Yeast Wet Prep Present [facility] HISTORICAL [...] Volume Laterality 04/20/2011 4:36 PM 2 4:36 REGIONAL MERCHANDISING MANAGER PM REGIONAL MERCHANDISING MANAGER Radha Navarro MD LAB - LABDAQ Performing Organization Address City/[facility]/ZIP Code Phon e Number [facility] HISTORICAL RESULTS HCG Qualitative Urine (LabDAQ) (04/20/2011 3:20 PM REGIONAL MERCHANDISING MANAGER) [facility] Signature HCG Qual Urine POSITIVE [facility] HISTORICAL RESULTS Specimen Anatomical Collection Method Collection Time Receive d Time (Source) Location / / Volume Laterality 04/20/2011 3:20 PM 2 3:20 REGIONAL MERCHANDISING MANAGER PM REGIONAL MERCHANDISING MANAGER Radha Navarro MD LAB - LABDAQ Performing Organization Address City/State/ZIP Code Phon e Number [facility] HISTORICAL RESULTS documented in this encounter Visit Diagnoses Not on filedocumented in this encounter
--- OUTSIDE RECORDS SUMMARY | 2022-01-23 08:29 | XMS_ITS | Encounter Summary ---
:1980 Author Organization [place] Address [address] [place] [address] Care Team Providers Name Role Phone Unavailable Primary Care Provider Unavailable Encounter Details Date Type Department Care Team Description 07/19/2011 Historic Results [facility] Leanne Navarro [place] MD Андрей [address] [place], [place] [phone] (Work) [place] [address] Social History Tobacco Use Types Packs/Day Years [...] 1 Hr (LabDAQ) (07/19/2011 10:56 AM CDT) [facility] gist Method Time Signature Glu Gest 151.0 [...]
--- OUTSIDE RECORDS SUMMARY | 2022-01-23 08:29 | XMS_ITS | Encounter Summary ---
:1980 Author Organization [place] Address [address] [facility] [place] [address] Care Team Providers Name Role Phone Andreas Patel MD Primary Care Provider Caitlin Ballesteros MD Primary Care Provider Lisa Dewitt DO Primary Care Provider Bebeto Roth MD Unavailable Astrid Rios PA-C Unavailable [facility] Primary Care Provider + Keri Elias MD Primary Care Provider Unavailable Francisco Metz MD Primary Care Provider [phone] Francisco Metz MD Unavailable [phone] Kenton Katz MD Unavailable Unavailable Karen Veliz DO Primary Care Provider Kenton Katz MD Unavailable Unavailable Karen Veliz DO Unavailable Encounter Details Date Type Department Care Team Description 09/08/2011 Office Visit-P INTERFACE P DEPT Greta Patel v, MD [facility] [address] [place] [address] (Wo rk) Social History Tobacco Use Types Packs/Day Years Used Date Smoking Tobacco: Never Assessed Sex Assigned at Date Recorded Not on file documented as of this encounter Progress Notes Andreas Patel MD - 09/08/2011 3:00 PM CDT Sleep Medicine Physician: Andreas Patel Status: Amended, Unsigned Encounter: 2011-09-08 15:00:00.000 Type: FM Ultrasound NG ROOM MAID documented in this encounter Plan of Treatment Not on filedocumented as of this encounter Visit Diagnoses Not on filedocumented in this encounter Care Teams Blind Slat Stapling Machine Operator Relationship Specialty Start Date End Date Andreas Patel MD PCP - General 10/05/11 10/07/11 [facility] [address] [place] [address] Caitlin Ballesteros MD PCP - General 10/08/11 08/11/13 Lisa Dewitt DO PCP - General 08/12/13 07/15/14 [facility] [address] [place] [address] [address] - [facility] PCP - General 07/16/14 03/11/15 [facility] [address] [place] [address] Keri Elias PCP - General Family Practice 03/12/15 9 MD Isaías Glez Mitchell PCP - General Family Practice 11/14/18 04/02/20 MD Stevie Karen Veliz PCP - General Family Medicine 04/03/20 DO [address] [place] [address] Bebeto Roth MD Orthopedics 07/09/14 [facility] [address] [place] [address] Astrid Rios PA-C Physician Stucco Mason Physician Stucco Mason - 07/09/14 Surgical Francisco Metz Assigned PCP 07/04/19 02/01/20 MD Stevie [place] [address] [place] [address] [place] [address] Kenton Katz Assigned PCP 02/02/20 08/27/20 MD Feliberto NO INFO AVAILABLE Kenton Katz Assigned Endocrinology 08/28/20 07/23/21 MD Fel[place] Provider NO INFO AVAILABLE Karen Veliz, Assigned PCP 08/28/20 DO [address] [place] [address] documented as of this encounter
--- OUTSIDE RECORDS SUMMARY | 2022-01-23 08:29 | XMS_ITS | Encounter Summary ---
:1980 Author Organization [place] Address [address] [facility] [place] [address] Care Team Providers Name Role Phone Andreas Patel MD Primary Care Provider Caitlin Ballesteros MD Primary Care Provider Lisa Dewitt DO Primary Care Provider eBbeto Roth MD Unavailable Astrid Rios PA-C Unavailable [facility] Primary Care Provider + Keri Elias MD Primary Care Provider Unavailable Francisco Metz MD Primary Care Provider [phone] Francisco Metz MD Unavailable [phone] Kenton Katz MD Unavailable Unavailable Karen Veliz DO Primary Care Provider Kenton Katz MD Unavailable Unavailable Karen Veliz DO Unavailable Encounter Details Date Type Department Care Team Description 07/14/2011 Office Visit-[facility] INTERFACE [facility] DEPT Social History Tobacco Use Types Packs/Day Years Used Date Smoking Tobacco: Never Assessed Sex Assigned at Date Recorded Not on file documented as of this encounter Progress Notes SY [facility] ULTRASOUND - 07/14/2011 9:10 AM CDT Dbas: ADOLFO CURRY Status: Amended, Final Encounter: 2011-07-14 09:10:00.000 Type: FM Ultrasound Active Problems Acne Vulgaris (706.1) Anxiety (300.00) Care Coordinated By; Tier 0 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 US 2nd & 3rd Trimester Ultrasound Report Primary MD: Dr Navarro Septic Tank Service Technician: Latesha Harley Indications: size less than dates P: 2 Machine: centrose 5 Pro FHR: 143 bpm Fluid:Normal TJ: [...] By: August Ontiveros ; 07/19/2011 9:17 AM OFFICE RENTAL CLERK. Signature Signed By: Latesha Harley ; 07/14/2011 9:45 AM OFFICE RENTAL CLERK. Signed By: August Ontiveros M.D.; 07/19/2011 9:17 AM OFFICE RENTAL CLERK; Author. CE RENTAL CLERK documented in this encounter Plan of Treatment Not on filedocumented as of this encounter Visit Diagnoses Not on filedocumented in this encounter Care Teams Bank Vault Custodian Relationship Specialty Start Date End Date Andreas Patel MD PCP - General 10/05/11 10/07/11 [facility] [address] [place] [address] Caitlin Ballesteros MD PCP - General 10/08/11 08/11/13 Lisa Dewitt DO PCP - General 08/12/13 07/15/14 [facility] [address] [place] [address] Clinic - [facility] PCP - General 07/16/14 03/11/15 [facility] [address] [place] [address] Keri Elias PCP - General Family Practice 03/12/15 9 MD Isaías Glez Mitchell PCP - General Family Practice 11/14/18 04/02/20 MD Stevie Karen Veliz, PCP - General Family Medicine 04/03/20 DO [address] [place] [address] Bebeto Roth MD Orthopedics 07/09/[address] [id number] Astrid Rios PA-C Physician Director Part Physician Director Part - 07/09/14 Surgical Francisco Metz Assigned PCP 07/04/19 02/01/20 MD Setvie [address] [place] [address] Kenton Katz Assigned PCP 02/02/20 08/27/20 MD Felib[place] NO INFO AVAILABLE Kenton Katz Assigned Endocrinology 08/28/20 07/23/21 MD [place]ib[place] Provider NO INFO AVAILABLE Karen Veliz, Assigned PCP 08/28/20 DO [address] [place] [address] documented as of this encounter
--- OUTSIDE RECORDS SUMMARY | 2022-01-23 08:29 | XMS_ITS | Encounter Summary ---
:1980 Author Organization [place] Address [address] [facility] [place] [address] Care Team Providers Name Role Phone Andreas Patel MD Primary Care Provider Caitlin Ballesteros MD Primary Care Provider Lisa Dewitt DO Primary Care Provider Bebeto Roth MD Unavailable Astrid Rios PA-C Unavailable [facility] Primary Care Provider + Keri Elias MD Primary Care Provider Unavailable Francisco Metz MD Primary Care Provider [phone] Francisco Metz MD Unavailable [phone] Kenton Katz MD Unavailable Unavailable Karen Veliz DO Primary Care Provider Kenton Katz MD Unavailable Unavailable Karen Veliz DO Unavailable Encounter Details Date Type Department Care Team Description 09/22/2011 Office Visit-[facility] INTERFACE [facility] DEPT Social History Tobacco Use Types Packs/Day Years Used Date Smoking Tobacco: Never Alcohol Use Standard Drinks/Week Comments No 0 (1 standard drink = 0.6 oz pure alcoho l) Sex Assigned at Date Recorded Not on file documented as of this encounter Progress Notes SY UMP ULTRASOUND - 09/22/2011 2:00 PM CDT Matlab Developer: SMILEYS, ULTRASOUND Status: Amended, Final Encounter: 2011-09-22 14:00:00.000 Type: FM Ultrasound Active Problems Acne Vulgaris (706.1) Anxiety (300.00) Care Coordinated By; Tier 0 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 US Biophysical Profile Report Primary MD: Dr Patel /Dr Ballesteros / Dr Ontiveros Design Lead: Latesha Harley Indications: pt. not feeling baby move. Dr. Franks asked for a BPP Machine KeyCAPTCHA 5 Pro EGA 39wks by Previous US [...] By: Payton Franks ; 09/22/2011 3:03 PM CERTIFIED RECREATIONAL THERAPIST. Signature Signed By: Latesha Harley ; 09/22/2011 2:52 PM CERTIFIED RECREATIONAL THERAPIST. Signed By: Payton Franks M.D.; 09/22/2011 3:03 PM CERTIFIED RECREATIONAL THERAPIST; Author. Signed By: Aditi Boyer M.D.; 09/26/2011 2:03 PM CERTIFIED RECREATIONAL THERAPIST. IFIED RECREATIONAL THERAPIST SY P ULTRASOUND - 09/22/2011 1:20 PM CDT Matlab Developer: SMILEYS, ULTRASOUND Status: Amended, Final Encounter: 2011-09-22 13:20:00.000 Type: FM Ultrasound Active Problems Acne Vulgaris (706.1) Anxiety (300.00) Care Coordinated By; Tier 0 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 US 2nd & 3rd Trimester Ultrasound Report Primary MD: Dr Patel / Dr Ontiveros /Dr Ballesteros Design Lead: Latesha Harley Indications: recheck growth Machine: KeyCAPTCHA 5 Pro FHR: 143 bpm Fluid:Normal TJ: [...] By: August Ontiveros ; 09/26/2011 2:25 PM CERTIFIED RECREATIONAL THERAPIST. Signature Signed By: Latesha Harley ; 09/22/2011 2:41 PM CERTIFIED RECREATIONAL THERAPIST. Signed By: August Ontiveros M.D.; 09/26/2011 2:26 PM CERTIFIED RECREATIONAL THERAPIST; Author. IFIED RECREATIONAL THERAPIST documented in this encounter Plan of Treatment Not on filedocumented as of this encounter Visit Diagnoses Not on filedocumented in this encounter Care Teams Manager Media Relationship Specialty Start Date End Date Andreas Patel MD PCP - General 10/05/11 10/07/11 [facility] [address] [place] [address] Caitlin Ballesteros MD PCP - General 10/08/11 08/11/13 Lisa Dewitt DO PCP - General 08/12/13 07/15/14 [facility] [address] [place] [address] Clinic - [facility], PCP - General 07/16/14 03/11/15 [facility] [address] [place] [address] Keri Elias PCP - General Family Practice 03/12/15 9 MD sIaías Glez Mitchell PCP - General Family Practice 11/14/18 04/02/20 MD Stevie Karen Veliz, PCP - General Family Medicine 04/03/20 DO [address] [place] [address] Bebeto Roth MD Orthopedics 07/09/14 [facility] [place] [address] Astrid Rios PA-C Physician Crossbow Maker Physician Crossbow Maker - 07/09/14 Surgical Francisco Metz Assigned PCP 07/04/19 02/01/20 MD Stevie [address] [place] [address] Kenton Katz Assigned PCP 02/02/20 08/27/20 MD Feliberto NO INFO AVAILABLE Kenton Katz Assigned Endocrinology 08/28/20 07/23/21 MD Feliberto Provider NO INFO AVAILABLE Karen Veliz, Assigned PCP 08/28/20 DO [address] [place] [address] documented as of this encounter
--- OUTSIDE RECORDS SUMMARY | 2022-01-23 08:29 | XMS_ITS | Encounter Summary ---
:1980 Author Organization [place] Address [address] [place] [address] Care Team Providers Name Role Phone Andreas Patel MD Primary Care Provider Caitlin Ballesteros MD Primary Care Provider Lisa Dewitt DO Primary Care Provider Bebeto Roth MD Unavailable Astrid Rios PA-C Unavailable [facility] Primary Care Provider + Keri Elias MD Primary Care Provider Unavailable Francisco Metz MD Primary Care Provider [phone] Francisco Metz MD Unavailable [phone] Kenton Katz MD Unavailable Unavailable Karen Veliz DO Primary Care Provider Kenton Katz MD Unavailable Unavailable Karen Veliz DO Unavailable Encounter Details Date Type Department Care Team Description 04/21/2011 Orders Only M [facility] Radha Pierce ositive test Imaging (Primary Dx) [address] [place] [address] Social History Tobacco Use Types Packs/Day Years Used Date Smoking Tobacco: Never Assessed Sex Assigned at Date Recorded Not on file documented as of this encounter Plan of Treatment Not on filedocumented as of this encounter Visit Diagnoses Diagnosis Positive test - Primary examination or test, positive result documented in this encounter Care Teams Forensic Anthropologist Relationship Specialty Start Date End Date Andreas Patel MD PCP - General 10/05/11 10/07/11 [facility] [address] [place] [phone] Caitlin Ballesteros MD PCP - General 10/08/11 08/11/13 Lisa Dewitt DO PCP - General 08/12/13 07/15/14 [facility] [address] [place] [address] [phone] Clinic - [facility] PCP - General 07/16/14 03/11/15 [facility] [address] [place] [address] Keri Elias PCP - General Family Practice 03/12/15 9 MD Isaías Glez Mitchell PCP - General Family Practice 11/14/18 04/02/20 MD Stevie Karen Veliz, PCP - General Family Medicine 04/03/20 [address] [place] [address] Bebeto Roth MD Orthopedics 07/09/14 [facility] [place] [address] Astrid Rios PA-C Physician Direct Support Staff Member Physician Direct Support Staff Member - 07/09/14 Surgical Francisco Metz Assigned PCP 07/04/19 02/01/20 MD Stevie [place] [address] [place] [address] Kenton Katz Assigned PCP 02/02/20 08/27/20 MD Feliberto NO INFO AVAILABLE Kenton Katz Assigned Endocrinology 08/28/20 07/23/21 MD Feliberto Provider NO INFO AVAILABLE Karen Veliz, Assigned PCP 08/28/20 DO [address] [place] [address] documented as of this encounter
--- OUTSIDE RECORDS SUMMARY | 2022-01-23 08:29 | XMS_ITS | Encounter Summary ---
:1980 Author Organization [place] Address [address] [facility] [place] [address] Care Team Providers Name Role Phone Unavailable Primary Care Provider Unavailable Encounter Details Date Type Department Care Team Description 09/22/2011 Hospital Encounter M [facility] Juanis Boyer, Birth[facility] MD [address] [place] [address] 7566 [facility] [phone] [place] [address] (Wo rk) Social History Tobacco [...] handout). * Call your doctor or nurse director account management if your baby is moving less than [...] not included. [facility] 1[facility] [address] notel Azul Garg Age: [age] year old Date of : 1980 Date of Admission: 09/22/2011 5:00 PM History of Present Illness (Resident / Clinician): Azul Garg is a patient of Dr. Loja from [facility]. She is a 31 year old [id number] is 39+0w with VINCENT 09/29/2011 that is consistent with 04/28/2011 dating ultrasound, as patient is unsure about her LMP. [facility] from [facility]- when patient complained of decreased movement [...] Value: Negative for C. trachomatis rRNA by patternator mediated amplification. A negative result by patternator mediated amplification does not preclude the presence of C. trachomatis infection because results are dependent on proper and adequate collection, absence of inhibitors, and suffi cient rRNA to be detected. 06/21/2011 GCPCRT Value: Negative for N. gonorrhoeae rRNA by patternator mediated amplification. A negative result by patternator mediated amplification does not preclude the presence of N. gonorrhoeae infection because results are dependent on proper and adequate collection, absence of inhibitors, and suffi cient rRNA to be detected. 06/21/2011 TREPAB Negative 04/20/2011 RUBELLAABIGG 48 04/20/2011 HGB 9.5* 10/16/2009 HIV Negative 04/20/2011 GBS Value: Positive: GBS DNA detected, presumed positive for GBS. Assay performed on incubated broth culture of specimen using ALTHIACycler(R) real-time PCR. 09/08/2011 Obstetrical History: She is [...] notify Dr. Patel or Dr. Patel from [facility] Miracle eTran MD [facility] Family Medicine PGY 1 Pager No. [phone] documented in this encounter H&P Notes Unknown, [...] big movements). Denies rom/bldg/regular contractions.I: EFM and [place] MD cynthia notified of pt arrival A: [...]
--- OUTSIDE RECORDS SUMMARY | 2022-01-23 08:30 | XMS_ITS | Encounter Summary ---
:1980 Author Organization [place] Address [address] [facility] [place] [address] Care Team Providers Name Role Phone Unavailable Primary Care Provider Unavailable Encounter Details Date Type Department Care Team Description 10/17/2009 Historic Notes INTERFACED REPORT Jana Sullivan MD [facility] [address] [facility] [address] [place], [place] [address] (Wo rk) Social History Tobacco Use Types [...] minimize ambulation as able full note dictated #[id number] Addendum Section 09:35 Entered By:ROB WEAVER Patient [...]
--- OUTSIDE RECORDS SUMMARY | 2022-01-23 08:30 | XMS_ITS | Encounter Summary ---
:1980 Author Organization [place] Address [facility] [address] Care Team Providers Name Role Phone Unavailable Primary Care Provider Unavailable Encounter Details Date Type Department Care Team Description 04/20/2011 Results Only [facility] PHYS STANDARD Radha Navarro [address] [facility] MD [place], [place] [phone] Social History Tobacco Use Types Packs/Day Years Used Date Smoking Tobacco: Never Assessed Sex Assigned at Date Recorded Not on file documented as of this encounter Plan of Treatment Not on filedocumented as of this encounter Procedures Procedure Name Priority Date/Time Associated Diagnosis Comme nts HEPATITIS B SURFACE Routine 04/20/2011 4:32 PM Re sults for this ANTIBODY PIPING DESIGN SPECIALIST procedure are i n the results section. documented in this encounter Results Hepatitis B surface antibody (04/20/2011 4:32 PM PIPING DESIGN SPECIALIST) P athologist Signature Hep B Surface 751.0 [facility] Comment: Positive, Patient is considered to be im mune to infection with hepatitis B when the value is greater than or equal to 1 2.0 mlU/mL. Specimen Anatomical Collection Method Collection Time Receive d Time (Source) Location / / Volume Laterality 04/20/2011 4:32 PM 2 4:37 PIPING DESIGN SPECIALIST PM PIPING DESIGN SPECIALIST Radha Navarro MD LAB - BLOOD ORDERABLES Performing Organization Address City/State/ZIP Code Phon e Number [facility] [address] [place] [address] [facility] documented in this encounter Visit Diagnoses Not on filedocumented in this encounter
--- OUTSIDE RECORDS SUMMARY | 2022-01-23 08:30 | XMS_ITS | Encounter Summary ---
:1980 Author Organization [place] Address [address] [facility] [place] [address] Care Team Providers Name Role Phone Unavailable [...]
--- OUTSIDE RECORDS SUMMARY | 2022-01-23 08:30 | XMS_ITS | Encounter Summary ---
:1980 Author Organization [place] Address [address] [facility] [place] [address] Care Team Providers Name Role Phone Unavailable [...] Navarro MD - 11/17/2009 8:20 AM CDT Solderer Assembler: Radha Navarro Status: Final Encounter: 17 Nov [...] CAPSULE DAILY WITH FOOD.; Rx Saline Nasal [place] 0.65 % Solution;USE 1 SPRAY IN EACH [...] like to follow up with someone at [facility] for her anxiety. 2.Nausea. The patient says [...] By: Radha Navarro MD,Resident; 11/19/2009 8:30 PM AMMUNITION COMPONENTS INSPECTOR; Author. Signed By: MYLES ROBERT M.D.; 11/27/2009 8:03 AM AMMUNITION COMPONENTS INSPECTOR. documented in this encounter Plan of Treatment Not on filedocumented as of this encounter Visit Diagnoses Not on filedocumented in this encounter
--- OUTSIDE RECORDS SUMMARY | 2022-01-23 08:30 | XMS_ITS | Encounter Summary ---
:1980 Author Organization [place] Address [facility] [place] [address] Care Team Providers Name Role Phone Unavailable Primary Care Provider Unavailable Encounter Details Date Type Department Care Team Description 04/20/2011 Results Only [facility] PHYS Radha De La Fuente [address] [facility] MD [place]ндр[place], [place] [phone] Social History Tobacco Use Types Packs/Day Years Used Date Smoking Tobacco: Never Assessed Sex Assigned at Date Recorded Not on file documented as of this encounter Plan of Treatment Not on filedocumented as of this encounter Procedures Procedure Name Priority Date/Time Associated Diagnosis Comme nts VARICELLA ZOSTER Routine 04/20/2011 4:32 PM Resul ts for this ANTIBODY IGG SYSTEM DEVELOPMENT ENGINEER procedure are i n the results section. documented in this encounter Results Varicella zoster antibody IgG (04/20/2011 4:32 PM SYSTEM DEVELOPMENT ENGINEER) [facility] Method Time Signature Varicella 203.00 [facility] Zoster IgG [facility] Immune Status CAMPUS LABS Ratio Vari Zoster Positive, [facility] IgG Interp suggests [place] prev. CAMPUS LABS exposure and probable immunity Specimen Anatomical Collection Method Collection Time Receive d Time (Source) Location / / Volume Laterality 04/20/2011 4:32 PM 2 4:37 SYSTEM DEVELOPMENT ENGINEER PM SYSTEM DEVELOPMENT ENGINEER Radha Navarro MD LAB - BLOOD ORDERABLES Performing Organization Address City/State/ZIP Code Phon e Number [facility] [address] [place] [address] [facility] documented in this encounter Visit Diagnoses Not on filedocumented in this encounter
--- OUTSIDE RECORDS SUMMARY | 2022-01-23 08:30 | XMS_ITS | Encounter Summary ---
:1980 Author Organization [place] Address [address] [facility] [place] [address] Care Team Providers Name Role Phone Unavailable Primary Care Provider Unavailable Encounter Details Date Type Department Care Team Description 10/17/2009 Historic Notes INTERFACED REPORT Myles De Oliveira MD [address] [place] [address] (Wo rk) Social History Tobacco Use Types [...]
--- OUTSIDE RECORDS SUMMARY | 2022-01-23 08:30 | XMS_ITS | Encounter Summary ---
:1980 Author Organization [place] Address [facility] [place] [address] Care Team Providers Name Role Phone Unavailable Primary Care Provider Unavailable Encounter Details Date Type Department Care Team Description 10/17/2009 Results Only [facility] Poll mirza, Bebeto Hartman MD Radiology Results [address] [place], [place] [address] (Wo rk) Social History Tobacco Use Types [...]
--- OUTSIDE RECORDS SUMMARY | 2022-01-23 08:30 | XMS_ITS | Encounter Summary ---
:1980 Author Organization [place] Address [address] [facility] [place] [address] Care Team Providers Name Role Phone Unavailable Primary Care Provider Unavailable Encounter Details Date Type Department Care Team Description 10/17/2009 Historic Notes INTERFACED REPORT August Ontiveros MD [address] [facility] [address] [place] [phone] (Wo rk) Social History Tobacco Use Types [...]
--- OUTSIDE RECORDS SUMMARY | 2022-01-23 08:30 | XMS_ITS | Encounter Summary ---
:1980 Author Organization [place] Address [address] [facility] [place] [address] Care Team Providers Name Role Phone Unavailable Primary Care Provider Unavailable Encounter Details Date Type Department Care Team Description 10/17/2009 Historic Notes INTERFACED REPORT Kev Rios MD [facility] ORTH OPEDICS [address] [place], [place] [address] (Wo rk) Social History [...] next couple of days Kev Rios MD [phone] [Signature] Author: KEV RIOS () [Signed 07:33] documented in this encounter Plan of Treatment Not on filedocumented as of this encounter Visit Diagnoses Not on filedocumented in this encounter
--- OUTSIDE RECORDS SUMMARY | 2022-01-23 08:30 | XMS_ITS | Encounter Summary ---
:1980 Author Organization [place] Address [address] [place] [address]. [place] [address] Care Team Providers Name Role Phone Unavailable Primary Care Provider Unavailable Encounter Details Date Type Department Care Team Description 11/25/2009 Office Visit-[facility] Orthopaedic Clinic Bebeto Rothide Renzo Hartman MD [address], [id number] [place] [phone] Social History Tobacco Use Types Packs/Day Years Used Date Smoking Tobacco: Never Assessed Sex Assigned at Date Recorded Not on file documented as of this encounter Progress Notes Bebeto Roth - 11/25/2009 11:30 AM CDT Tax Collection Coordinator: Bebeto Roth Status: Final - Signature Encounter: 25 Nov 2009 Type: U Ortho Visit Department of Orthopaedic Surgery Administration: [address], [address] [place] [address] or [phone] Appointments [email or web address] Mail Address: [address], [address] [place] [address] Shmuel Ruiz MD General Orthopaedics Marcella Wilson [...] Roth Jr., Spine John Garcia MD Hand/Trauma Georig Murdock MD Spine Karl Guzman D.P.M. 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 She has completed an SRS 30 questionnaire. [...] of Spine Service DP:pedro cc: Jocelin Solis [address] [address] Radha Navarro MD [facility] [address] [place] [address] Electronically signed by:Bebeto Roth M.D. Dec 03 2009 8:42AM CONTINUOUS IMPROVEMENT COORDINATOR documented in this encounter Plan of Treatment Not on filedocumented as of this encounter Visit Diagnoses Not on filedocumented in this encounter
--- OUTSIDE RECORDS SUMMARY | 2022-01-23 08:30 | XMS_ITS | Encounter Summary ---
:1980 Author Organization [place] Address [address] [facility] [place] [address] Care Team Providers Name Role Phone Unavailable Primary Care Provider Unavailable Encounter Details Date Type Department Care Team Description 10/19/2009 Historic Notes INTERFACED REPORT Interface, Transcript on, Social History Tobacco Use Types Packs/Day Years Used Date Smoking Tobacco: Never Assessed Sex Assigned at Date Recorded Not on file documented as of this encounter Progress Notes Interface, Division Officer Weapons Department - 04/30/2010 8:35 PM CDT Discharge Summary - Reason for Discharge All goals and outcomes met, no further needs identified - Progress toward Goals met achieving short term goals/mcfp goals - Comments OT: goals met, training completed, equipment issued. no OT follow up recommended. patient to have assist from family as needed. - Continued Therapy No Recommended Signatures Laureen Casas (OT)[Signed 08:38] Authored: Discharge Summary Interface, Division Officer Weapons Department - 04/30/2010 8:33 PM CDT Discharge Summary - Reason for Discharge All goals and outcomes met, no further needs identified - Progress toward Goals met achieving short term goals/mcfp goals - Comments PT: By Oct 20, [...]
--- OUTSIDE RECORDS SUMMARY | 2022-01-23 08:30 | XMS_ITS | Encounter Summary ---
:1980 Author Organization [place] Address [address] [facility] [place] [address] Care Team Providers Name Role Phone Unavailable Primary Care Provider Unavailable Encounter Details Date Type Department Care Team Description 10/13/2009 Historic Notes INTERFACED REPORT Kev Rios MD [facility] ORTH OPEDICS [address] [place], [place] [address] (Wo rk) Social History [...] PSF - prn pain meds, wean from PSYCH COORDINATOR to PO today - ADAT - WBAT, up with PT - encourage IS - lforez out when ambulatory - appreciate Smileys input - upright xrays in a couple days - anticipate home by the end of the week Kev Rios MD [phone] [Signature] Author: KEV RIOS) [Signed 06:46] documented in this encounter Plan of Treatment Not on filedocumented as of this encounter Visit Diagnoses Not on filedocumented in this encounter
--- OUTSIDE RECORDS SUMMARY | 2022-01-23 08:30 | XMS_ITS | Encounter Summary ---
:1980 Author Organization [place] Address [address] [facility] [place] [address] Care Team Providers Name Role Phone Unavailable Primary Care Provider Unavailable Encounter Details Date Type Department Care Team Description 03/03/2010 Office Visit-[facility] INTERFACE [facility] DEPT Provider, [facility] Nurs e Social History Tobacco Use Types Packs/Day Years Used Date Smoking Tobacco: Never Assessed Sex Assigned at Date Recorded Not on file documented as of this encounter Progress Notes Provider, [facility] Nurse - 03/03/2010 2:30 PM CST Tea Bag Packer: Melvi Juárez Status: Final Encounter: 03 Mar 2010 Type: Rooming Note Reason For Visit Surgery follow up Do you have any other appointments, tests or procedures within the [place] system for this same day? 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 documented in this encounter Plan of Treatment Not on filedocumented as of this encounter Visit Diagnoses Not on filedocumented in this encounter
--- OUTSIDE RECORDS SUMMARY | 2022-01-23 08:30 | XMS_ITS | Encounter Summary ---
:1980 Author Organization [place] Address [facility] [place] [address] Care Team Providers Name Role Phone Unavailable Primary Care Provider Unavailable Encounter Details Date Type Department Care Team Description 04/20/2011 Results Only UU PHYS Radha De La Fuente [address] [facility] MD Андрей [place], [place] [phone] Social History Tobacco Use Types Packs/Day Years Used Date Smoking Tobacco: Never Assessed Sex Assigned at Date Recorded Not on file documented as of this encounter Plan of Treatment Not on filedocumented as of this encounter Procedures Procedure Name Priority Date/Time Associated Diagnosis Comme nts URINE CULTURE Routine 04/20/2011 4:32 PM Results for this CONSULTANT ELECTRONICS procedure are i n the results section . documented in this encounter Results Urine culture (04/20/2011 4:32 PM CONSULTANT ELECTRONICS) Component Value Ref Test Analysis Performed At [facility] Range Method Time Signature Specimen Midstream Urine [facility] Description MICROBIOLOGY Special Specimen received [facility] Requests in preservative MICROBIOLOGY Culture Micro 10 to 50,000 colonies/mL Mixed gram positive teresa [facility] Multiple species present, probable perineal contamination. MICROBIOLOGY Susceptibility testing not routinely done Micro Report FINAL 04/21/2011 [facility] Status MICROBIOLOGY Specimen Anatomical Collection Method Collection Time Receive d Time (Source) Location / / Volume Laterality 04/20/2011 4:32 PM 2 4:37 CONSULTANT ELECTRONICS PM CONSULTANT ELECTRONICS Radha Navarro MD LAB - MICRO GENERAL ORDERABL ES Performing Organization Address City/State/ZIP Code Phon e Number [facility] [address] [place] [address] [place] [facility] MICROBIOLOGY documented in this encounter Visit Diagnoses Not on filedocumented in this encounter
--- OUTSIDE RECORDS SUMMARY | 2022-01-23 08:30 | XMS_ITS | Encounter Summary ---
:1980 Author Organization [place] Address [facility] [place] [address] Care Team Providers Name Role Phone Unavailable Primary Care Provider Unavailable Encounter Details Date Type Department Care Team Description 10/18/2009 Historic Results INTERFACED REPORT Kev Rios MD [facility] OR[facility] OPEDICS [address] [...] C difficile culture (10/18/2009 5:44 PM CDT) [facility] gist Method Time Signature Specimen Feces MISYS [...] the test. FDA approved assay performed using [employer] GeneXpert real-time PCR. A negative result does [...]
--- OUTSIDE RECORDS SUMMARY | 2022-01-23 08:30 | XMS_ITS | Encounter Summary ---
:1980 Author Organization [place] Address [address] [facility] [address] Care Team Providers Name Role Phone Unavailable [...] note. Mary Codes - Daily Hospital Codes [address] Interval History - Interval History: No overnight [...] Discharged to home today. Follow up at [facility] in 7 -10 days. Signatures RADHA NAVARRO)[Signed 09:16] Authored: Interval History, Review of Systems, Physical Exam, Vital Signs/Labs/Imaging/Culture Review, VS, Assessment and Plan SHARYN SALEEM)[Signed 11:28] Authored: ATTENDING PHYSICIAN, Mary Codes documented in this encounter Plan of Treatment Not on filedocumented as of this encounter Visit Diagnoses Not on filedocumented in this encounter
--- OUTSIDE RECORDS SUMMARY | 2022-01-23 08:30 | XMS_ITS | Encounter Summary ---
:1980 Author Organization [place] Address [facility] [place] [address] Care Team Providers Name Role Phone Unavailable Primary Care Provider Unavailable Encounter Details Date Type Department Care Team Description 04/20/2011 Results Only UU PHYS Radha De La Fuente 500 [facility] MD Андрей [place], [place] [phone] Social History Tobacco Use Types Packs/Day Years Used Date Smoking Tobacco: Never Assessed Sex Assigned at Date Recorded Not on file documented as of this encounter Plan of Treatment Not on filedocumented as of this encounter Procedures Procedure Name Priority Date/Time Associated Diagnosis Comme nts ANTI TREPONEMA Routine 04/20/2011 4:32 PM Results for this SPEECH THERAPIST procedure are i n the results section . documented in this encounter Results Anti treponema EIA (04/20/2011 4:32 PM SPEECH THERAPIST) Analysis Performed At Patho logist Time Signature Treponema Negative NEG [facility] Antibody [facility] Specimen Anatomical Collection Method Collection Time Receive d Time (Source) Location / / Volume Laterality 04/20/2011 4:32 PM 201 2 4:37 SPEECH THERAPIST PM SPEECH THERAPIST Radha Navarro MD LAB - BLOOD ORDERABLES Performing Organization Address City/State/ZIP Code Phon e Number [facility] [address] [place] [address] [facility] documented in this encounter Visit Diagnoses Not on filedocumented in this encounter
--- OUTSIDE RECORDS SUMMARY | 2022-01-23 08:30 | XMS_ITS | Encounter Summary ---
:1980 Author Organization [place] Address [address] [place] [address] Care Team Providers Name Role Phone Unavailable Primary Care Provider Unavailable Encounter Details Date Type Department Care Team Description 10/14/2009 Historic Notes INTERFACED REPORT Interface, Transcript on, Social History Tobacco Use Types Packs/Day Years Used Date Smoking Tobacco: Never Assessed Sex Assigned at Date Recorded Not on file documented as of this encounter Progress Notes Interface, Mechanic Sound Technician - 04/30/2010 8:52 PM CDT General Information [...] Mobility: Rolling/Turning - Level of stand-by assist [place]: - Physical supervision; verbal cues Assist/Nonphysical Assist: - Assistive Device: bed rails Bed Mobility: Scooting/Bridging - Level of stand-by assist [place]: - Physical verbal cues; supervision Assist/Nonphysical Assist: - Assistive Device: bed rails Bed Mobility: Supine to Sit - Level of minimum assist (75% patients effort) [place]: - Physical set-up required; verbal cues Assist/Nonphysical Assist: - Assistive Device: bed rails Toilet Transfer - Level of unable to perform, wanted to have pain [place]: medication prior to getting OOB Eating/Self-Feeding - Level of stand-by assist [place]: - Physical set-up required Assist/Nonphysical Assist: Grooming - Level of stand-by assist [place]: - Physical set-up required Assist/Nonphysical Assist: Upper Body Dressing - Level of minimum assist (75% patients effort) [place]: - Physical set-up required; verbal cues; 1 person assist Assist/Nonphysical Assist: Lower Body Dressing - Level of maximum assist (25% patients effort) [place]: - Physical set-up required; verbal cues; 1 person assist Assist/Nonphysical Assist: - Assistive Device: visual merchandising manager; sock-aid Self Care Analysis - Impairments [...] anxiety and pain which impairs overall ADL [place]. Patient declined OOB transfers this morning due [...] therapy goals): - Demonstrates need for PT; TURRET LATHE OPERATOR referral to another service: - Predicted Duration [...]
--- OUTSIDE RECORDS SUMMARY | 2022-01-23 08:30 | XMS_ITS | Encounter Summary ---
:1980 Author Organization [place] Address [address] [facility] [place] [address] Care Team Providers Name Role Phone Unavailable Primary Care Provider Unavailable Encounter Details Date Type Department Care Team Description 10/18/2009 Consultation [facility] Carlitos Weathers, [facility] PhD [facility] Results [facility] [address] [place] [address] (Wo rk) Social History Tobacco [...] her 2 sons in an apartment in [place]. Her parents are . Shereported that the sons' father is in longterm at this time. She reported that she had to move in with her mother a while back when both her and her mother had lost their jobs. 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 She has never [...] be faxed to our office at [facility] (fax [phone]), and it will be scored and gone [...] depression that may be happening. DSM-IV DIAGNOSES: [place] I: 300.00, Anxiety disorder, not otherwise specified. [place] II: Deferred. [place] III: Deferred to physician. [place] IV: Moderate to severe. [place] V: 30-35. Electronically signed on 10/19/2009 21:41 by CARLITOS WEATHERS, PHD As dictated by ADELINA HULL PSYD MT: THAO Name: AZUL DINH MRN: [id number] Account: [id number] : 1980 Consult Date: 10/18/2009 Document: [id number] cc: Bebeto Roth Jr, MD documented in this encounter Plan of Treatment Not on filedocumented as of this encounter Visit Diagnoses Not on filedocumented in this encounter
--- OUTSIDE RECORDS SUMMARY | 2022-01-23 08:30 | XMS_ITS | Encounter Summary ---
:1980 Author Organization [place] Address [address] [facility] [place] [address] Care Team Providers Name Role Phone Unavailable Primary Care Provider Unavailable Encounter Details Date Type Department Care Team Description 10/16/2009 Historic Notes INTERFACED REPORT Interface, Transcript on, Social History Tobacco Use Types Packs/Day Years Used Date Smoking Tobacco: Never Assessed Sex Assigned at Date Recorded Not on file documented as of this encounter Progress Notes Interface, Setter Out - 04/30/2010 8:41 PM CDT Notification - [...] MAIKEL GRUBBS (RN)[Signed 17:22] Authored: Notification Interface, Setter Out - 04/30/2010 8:41 PM CDT Notification - [...] MAIKEL GRUBBS (RN)[Signed 21:03] Authored: Notification Interface, Setter Out - 04/30/2010 8:41 PM CDT MD Notification [...]
--- OUTSIDE RECORDS SUMMARY | 2022-01-23 08:30 | XMS_ITS | Encounter Summary ---
:1980 Author Organization [place] Address [facility] [place] [address] Care Team Providers Name Role Phone Unavailable Primary Care Provider Unavailable Encounter Details Date Type Department Care Team Description 10/30/2009 Historic Results [facility] [place] [address] Social History Tobacco Use Types Packs/Day Years [...] Component Value Ref Test Analysis Performed At [facility] Range Method Time Signature Source Unspecified MISYS Urine Color Urine Yellow MIS[facility] Appearance Urine Clear MIS[facility] Glucose Urine Negative NEG M[facility] mg/dL Bilirubin Urine Negative NEG [facility] Ketones Urine Negative NEG [facility] mg/dL Specific [place] 1.017 1.003 - MISYS Urine 1.035 Blood [...] LAB - URINE ORDERABLES Performing Organization Address City/[facility] Phon e Number MISYS HCG qualitative urine [...] LAB - URINE ORDERABLES Performing Organization Address [facility] Phon e Number MISYS Urine culture (10/30/2009 5:20 PM CDT) [facility] gist Method Time Signature Specimen Unspecified [...] MICRO GENERAL ORDERABL ES Performing Organization Address City/[facility] Phon e Number M[facility] documented in this encounter Visit Diagnoses Not on filedocumented in this encounter
--- OUTSIDE RECORDS SUMMARY | 2022-01-23 08:30 | XMS_ITS | Encounter Summary ---
:1980 Author Organization [place] Address [facility] [place] [address] Care Team Providers Name Role Phone Unavailable Primary Care Provider Unavailable Encounter Details Date Type Department Care Team Description 04/20/2011 Results Only UU PHYS Radha De La Fuente 500 [facility] MD Андрей [place], [place] [phone] Social History Tobacco Use Types Packs/Day Years Used Date Smoking Tobacco: Never Assessed Sex Assigned at Date Recorded Not on file documented as of this encounter Plan of Treatment Not on filedocumented as of this encounter Procedures Procedure Name Priority Date/Time Associated Comments Diagnosis NEISSERIA GONORRHOEAE Routine 04/20/2011 4:32 PM Results for this PCR SKI BASE TRIMMER procedure are i n the results section. documented in this encounter Results Neisseria gonorrhoeae PCR (04/20/2011 4:32 PM SKI BASE TRIMMER) Component Value Ref Test Analysis Performed At [facility] Range Method Time Signature Specimen Cervical [facility] Descrip N Gonorrhea Negative for N. gonorrhoeae rRNA by roll forming supervisor mediated amplification. [facility] PCR A negative result by transc ription mediated amplification does not preclude the MICROBIOLOGY presence of N. gonorrhoeae infection because re sults are dependent on proper and adequate collection, absence of inhibitors, and suffici ent rRNA to be detected. Specimen Anatomical Collection Method Collection Time Receive d Time (Source) Location / / Volume Laterality 04/20/2011 4:32 PM 2 4:37 SKI BASE TRIMMER PM SKI BASE TRIMMER Radha Navarro MD LAB - MICRO GENERAL ORDERABL ES Performing Organization Address City/State/ZIP Code Phon e Number [facility] [address] [place] [address] [facility] MICROBIOLOGY documented in this encounter Visit Diagnoses Not on filedocumented in this encounter
--- OUTSIDE RECORDS SUMMARY | 2022-01-23 08:30 | XMS_ITS | Encounter Summary ---
:1980 Author Organization [place] Address [address] [facility] [place] [address] Care Team Providers Name Role Phone Unavailable Primary Care Provider Unavailable Encounter Details Date Type Department Care Team Description 10/17/2009 Consultation [facility] Ronn Weaver MD [address] [place], [place] [phone] (Wo rk) Social History Tobacco Use Types [...] nancy Name: AZUL DINH MRN: [id number] Account: [id number] : 1980 Consult Date: 10/17/2009 Document: [id number] cc: Bebeto Roth Jr, MD [facility] documented in this encounter Plan of Treatment Not on filedocumented as of this encounter Visit Diagnoses Not on filedocumented in this encounter
--- OUTSIDE RECORDS SUMMARY | 2022-01-23 08:30 | XMS_ITS | Encounter Summary ---
:1980 Author Organization [place] Address [address] [facility] [place] [address] Care Team Providers Name Role Phone Unavailable Primary Care Provider Unavailable Encounter Details Date Type Department Care Team Description 10/16/2009 Historic Notes INTERFACED REPORT Kev Rios MD [facility] ORTH OPEDICS [address] [place], [place] [address] (Wo rk) Social History [...] - upright xrays today Kev Rios MD [phone] [Signature] Author: KEV RIOS) [Signed 07:56] documented in this encounter Plan of Treatment Not on filedocumented as of this encounter Visit Diagnoses Not on filedocumented in this encounter
--- OUTSIDE RECORDS SUMMARY | 2022-01-23 08:30 | XMS_ITS | Encounter Summary ---
:1980 Author Organization [place] Address [address] [facility] [place] [address] Care Team Providers Name Role Phone Unavailable [...]
--- OUTSIDE RECORDS SUMMARY | 2022-01-23 08:30 | XMS_ITS | Encounter Summary ---
:1980 Author Organization [place] Address [address] [facility] [place] [address] Care Team Providers Name Role Phone Unavailable Primary Care Provider Unavailable Encounter Details Date Type Department Care Team Description 10/14/2009 Historic Notes INTERFACED REPORT Kev Rios MD [facility] ORTH OPEDICS [address] [place], [place] [address] (Wo rk) Social History [...] end of the week Kev Rios MD [phone] [Signature] Author: KEV RIOS) [Signed 06:54] documented in this encounter Plan of Treatment Not on filedocumented as of this encounter Visit Diagnoses Not on filedocumented in this encounter
--- OUTSIDE RECORDS SUMMARY | 2022-01-23 08:30 | XMS_ITS | Encounter Summary ---
:1980 Author Organization [place] Address [address] [place] [address]. [place] [address] Care Team Providers Name Role Phone Unavailable Primary Care Provider Unavailable Encounter Details Date Type Department Care Team Description 03/03/2010 Office Visit-[facility] Orthopaedic Clinic Bebeto Roth [facility] MD Devan [address], [phone] [place] [phone] Social History Tobacco Use Types Packs/Day Years Used Date Smoking Tobacco: Never Assessed Sex Assigned at Date Recorded Not on file documented as of this encounter Progress Notes Bebeto Roth - 03/03/2010 2:30 PM CST Department Of Sociology Chair: Bebeto Roth Status: Final - Signature Encounter: 03 Mar 2010 Type: U Ortho Visit Department of Orthopaedic Surgery Administration: [address], [address] [place] [address] or [phone] Appointments [email or web address] Mail Address: [address], [address] [place] [phone] Shmuel Ruiz MD General Orthopaedics Marcella Wilson [...] by:Bebeto Roth M.D. Mar 11 2010 9:50AM FREIGHT LOADING SUPERVISOR GHT LOADING SUPERVISOR Bebeto Roth - 03/03/2010 2:30 PM CST Department Of Sociology Chair: Bebeto Roth Status: Final - Signature Encounter: 03 Mar 2010 Type: U Ortho Visit Department of Orthopaedic Surgery Administration: [address], [address] [address] or [phone] Appointments [email or web address] Mail Address: [address], [address] [place] [phone] Shmuel Ruiz MD General Orthopaedics Marcella Wilson MD Hand, Wrist, Elbow Quyen Simms MD Sports Medicine - Knee Adult Reconstruction - Knee Clem Bower MD Shoulder Gerogi Cross MD Oncology and Adult Reconstruction Aba Burgos MD Oncology Apoorva Leung MD Shoulder and Elbow Martin Sheffield MD Professor Emeritus Breanna Haji MD Pediatric Orthopaedics and Scoliosis Deep eSrna D.P.M. 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 She is trying to earn enough [...] Jocelin Solis [facility] [address] [facility] [address] Radha Navarro MD [facility] [address] [place] [address] Electronically signed by:Bebeto Roth M.D. Mar 11 2010 9:50AM FREIGHT LOADING SUPERVISOR GHT LOADING SUPERVISOR documented in this encounter Plan of Treatment Not on filedocumented as of this encounter Visit Diagnoses Not on filedocumented in this encounter
--- OUTSIDE RECORDS SUMMARY | 2022-01-23 08:30 | XMS_ITS | Encounter Summary ---
:1980 Author Organization [place] Address [facility] [place] [address] Care Team Providers Name Role Phone Unavailable Primary Care Provider Unavailable Encounter Details Date Type Department Care Team Description 04/20/2011 Results Only UU PHYS STANDARD Radha Navarro [address] [facility] MD Андрей [place], [place] [phone] Social History Tobacco Use Types Packs/Day Years Used Date Smoking Tobacco: Never Assessed Sex Assigned at Date Recorded Not on file documented as of this encounter Plan of Treatment Not on filedocumented as of this encounter Procedures Procedure Name Priority Date/Time Associated Diagnosis Comme nts ABO/RH TYPE AND Routine 04/20/2011 4:32 PM Result s for this SCREEN CHAIN MAKER procedure are i n the results section. documented in this encounter Results ABO/Rh type and screen (04/20/2011 4:32 PM CHAIN MAKER) [facility] gist Method Time Signature ABO O [facility] B[facility]OD BANK LAB RH(D) Pos [facility]OD [facility] LAB Antibody Neg [facility] Screen [place] [facility] Specimen 04/23/2011 [facility] Expires [facility] Specimen Anatomical Collection Method Collection Time Receive d Time (Source) Location / / Volume Laterality 04/20/2011 4:32 PM 2 4:37 CHAIN MAKER PM CHAIN MAKER Radha Navarro MD LAB - BLOOD BANK TEST ORDER Performing Organization Address City/State/ZIP Code Phon e Number [facility] [address] [place] [address] [facility] BLOOD BANK LAB documented in this encounter Visit Diagnoses Not on filedocumented in this encounter
--- OUTSIDE RECORDS SUMMARY | 2022-01-23 08:30 | XMS_ITS | Encounter Summary ---
:1980 Author Organization [place] Address [facility]0 [facility] [place] [address] Care Team Providers Name Role Phone Unavailable Primary Care Provider Unavailable Encounter Details Date Type Department Care Team Description 10/19/2009 Discharge Summary [facility] Myles De Oliveira (Forensic Chemist) [facility] MD Devan Results [address] [place], [place] [phone] Social History Tobacco Use Types Packs/Day Years [...] surgical floor. Her primary care group from [facility] was asked to follow the patient as well given her history of anxiety. On postoperative day #1, she had moderate pain and required the use of Dilaudid THERAPEUTIC RECREATION SPECIALIST for pain control. She had some early [...] MD MT: DARLEEN Name: AZUL DINH Account: [id number] : 1980 Admit Date: [id number] Discharge Date: 10/19/2009 Document: [id number] cc: [facility] documented in this encounter Plan of Treatment Not on filedocumented as of this encounter Visit Diagnoses Not on filedocumented in this encounter
--- OUTSIDE RECORDS SUMMARY | 2022-01-23 08:30 | XMS_ITS | Encounter Summary ---
:1980 Author Organization [place] Address [facility] [place] [address] Care Team Providers Name Role Phone Unavailable Primary Care Provider Unavailable Encounter Details Date Type Department Care Team Description 10/15/2009 Historic Land Law Examiner INTERFACED REPORT InterfaceFranny MD Social History Tobacco Use Types Packs/Day Years Used Date Smoking Tobacco: Never Assessed Sex Assigned at Date Recorded Not on file documented as of this encounter Plan of Treatment Not on filedocumented as of this encounter Visit Diagnoses Not on filedocumented in this encounter
--- OUTSIDE RECORDS SUMMARY | 2022-01-23 08:30 | XMS_ITS | Encounter Summary ---
:1980 Author Organization [place] Address [facility] [address] Care Team Providers Name Role Phone Unavailable Primary Care Provider Unavailable Encounter Details Date Type Department Care Team Description 10/16/2009 Results Only [facility] Kev Rios MD Radiology Results [facility] ORTHOPEDICS [address] [place], [place] [address] (Wo rk) Social History Tobacco Use Types Packs/Day Years Used Date Smoking Tobacco: Never Assessed Sex Assigned at Date Recorded Not on file documented as of this encounter Plan of Treatment Not on filedocumented as of this encounter Procedures Procedure Name Priority Date/Time Associated Diagnosis Comme [facility] X-RAY SPINE Routine 10/16/2009 4:09 PM [...]
--- OUTSIDE RECORDS SUMMARY | 2022-01-23 08:30 | XMS_ITS | Encounter Summary ---
:1980 Author Organization [place] Address [facility] [place] [address] Care Team Providers Name Role Phone Unavailable Primary Care Provider Unavailable Encounter Details Date Type Department Care Team Description 10/14/2009 Historic Results INTERFACED REPORT Kev Rios MD [facility] ORTH OPEDICS [address] [place], [place] [address] (Wo rk) Social History [...]
--- OUTSIDE RECORDS SUMMARY | 2022-01-23 08:30 | XMS_ITS | Encounter Summary ---
:1980 Author Organization [place] Address [address] [facility] [place] [address] Care Team Providers Name Role Phone Unavailable [...] Navarro MD - 12/14/2009 4:40 PM CDT Air Defence Officer: Radha Navarro Status: Final Encounter: 14 Dec [...] CAPSULE DAILY WITH FOOD.; Rx Saline Nasal [place] 0.65 % Solution;USE 1 SPRAY IN EACH [...] By: Radha Navarro MD,Resident; 12/16/2009 8:48 AM FIELD IRONWORKER; Author. Signed By: August Ontiveros M.D.; 12/17/2009 3:30 PM FIELD IRONWORKER; Author. documented in this encounter Plan of Treatment Not on filedocumented as of this encounter Visit Diagnoses Not on filedocumented in this encounter
--- OUTSIDE RECORDS SUMMARY | 2022-01-23 08:30 | XMS_ITS | Encounter Summary ---
:1980 Author Organization [place] Address [facility] [place] [address] Care Team Providers Name Role Phone Unavailable Primary Care Provider Unavailable Encounter Details Date Type Department Care Team Description 04/20/2011 Results Only [facility] PHYS STANDARD Radha Navarro [address] [facility] MD Андрей [place], [place] [phone] Social History Tobacco Use Types Packs/Day Years Used Date Smoking Tobacco: Never Assessed Sex Assigned at Date Recorded Not on file documented as of this encounter Plan of Treatment Not on filedocumented as of this encounter Procedures Procedure Name Priority Date/Time Associated Diagnosis Comme nts HIV 1 AND 2 Routine 04/20/2011 4:32 PM Results f or this ANTIBODY (QUEST) MIXING HOUSE OPERATOR procedure a re in the results section. documented in this encounter Results HIV 1 and 2 Antibody (04/20/2011 4:32 PM MIXING HOUSE OPERATOR) Analysis Performed At Patho logist Time Signature HIV 1&2 Negative NEG [facility] Antibody [facility] Specimen Anatomical Collection Method Collection Time Receive d Time (Source) Location / / Volume Laterality 04/20/2011 4:32 PM 2 4:37 MIXING HOUSE OPERATOR PM MIXING HOUSE OPERATOR Radha Navarro MD LAB - BLOOD ORDERABLES Performing Organization Address City/State/ZIP Code Phon e Number [facility] [address] [place] [address] [facility] documented in this encounter Visit Diagnoses Not on filedocumented in this encounter
--- OUTSIDE RECORDS SUMMARY | 2022-01-23 08:30 | XMS_ITS | Encounter Summary ---
:1980 Author Organization [place] Address [address] [facility] [address] Care Team Providers Name Role Phone Unavailable Primary Care Provider Unavailable Encounter Details Date Type Department Care Team Description 10/16/2009 Historic Results INTERFACED REPORT Kev Rios MD [facility] ORTH OPEDICS [address] [place], [place] [phone] (Wo rk) Social History [...] Component Value Ref Test Analysis Performed At [facility] Range Method Time Signature Source Catheterized MISYS Urine Color Urine Yellow MISYS Appearance Urine Slightly Cloudy MISYS Glucose Urine Negative NEG MISYS mg/dL Bilirubin Urine Negative NEG MISYS Ketones Urine 5 (A) NEG MISYS mg/dL Specific [place] 1.007 1.003 - MISYS Urine 1.035 Blood [...] Ref Test Analysis Performed At [facility] gist Range Method Time Signature Specimen Catheterized [...]
--- OUTSIDE RECORDS SUMMARY | 2022-01-23 08:30 | XMS_ITS | Encounter Summary ---
:1980 Author Organization [place] Address [address] [facility] [place] [address] Care Team Providers Name Role Phone Unavailable Primary Care Provider Unavailable Encounter Details Date Type Department Care Team Description 04/20/2011 Results Only [facility] PHYS STANDARD Melanie, Radha [address] [facility] MD Анд[address]ей [place], [place] [address] [phone] Social History Tobacco Use Types Packs/Day Years Used Date Smoking Tobacco: Never Assessed Sex Assigned at Date Recorded Not on file documented as of this encounter Plan of Treatment Pending Results Name Type Priority Associated Diagnoses Date/Ti me screen with HIV Lab Routine 08/2011 4:32 PM NAVAL AIRCREWMAN HELICOPTER documented as of this encounter Procedures Procedure Name Priority Date/Time Associated Diagnosis Comme nts SCREEN WITH Routine 04/20/2011 4:32 PM NAVAL AIRCREWMAN HELICOPTER HIV documented in this encounter Visit Diagnoses Not on filedocumented in this encounter
--- OUTSIDE RECORDS SUMMARY | 2022-01-23 08:30 | XMS_ITS | Encounter Summary ---
:1980 Author Organization [place] Address [address] [facility] [place] [address] Care Team Providers Name Role Phone Unavailable Primary Care Provider Unavailable Encounter Details Date Type Department Care Team Description 10/19/2009 Historic Results INTERFACED REPORT Kev Rios MD [facility] ORTH OPEDICS [address] [place], [place] [address] (Wo rk) Social History [...]
--- OUTSIDE RECORDS SUMMARY | 2022-01-23 08:30 | XMS_ITS | Encounter Summary ---
:1980 Author Organization [place] Address [address] [place] [address] Care Team Providers Name Role Phone Unavailable Primary Care Provider Unavailable Encounter Details Date Type Department Care Team Description 11/25/2009 Office Visit-[facility] INTERFACE [facility] DEPT Unknown, Provider Social History Tobacco Use Types Packs/Day Years Used Date Smoking Tobacco: Never Assessed Sex Assigned at Date Recorded Not on file documented as of this encounter Progress Notes Unknown, Provider - 11/25/2009 11:30 AM CDT Dock Clerk: Tk Lopez Status: Final Encounter: 25 Nov 2009 Type: Rooming Note Reason For Visit Surgery follow up Do you have any other appointments, tests or procedures within the [facility] system for this same day? No Occupation: [...] CAPSULE DAILY WITH FOOD.; Rx Saline Nasal [place] 0.65 % Solution;USE 1 SPRAY IN EACH [...] By: Tk Lopez CMA; 11/25/2009 11:52 AM DENTAL LABORATORY WORKER. documented in this encounter Plan of Treatment Not on filedocumented as of this encounter Visit Diagnoses Not on filedocumented in this encounter
--- OUTSIDE RECORDS SUMMARY | 2022-01-23 08:30 | XMS_ITS | Encounter Summary ---
:1980 Author Organization [place] Address [address] [facility] [place] [address] Care Team Providers Name Role Phone Unavailable Primary Care Provider Unavailable Encounter Details Date Type Department Care Team Description 10/19/2009 Historic Notes INTERFACED REPORT Kev Rios MD [facility] ORTH OPEDICS [address] [place], [place] [address] (Wo rk) Social History [...] - d/c home today Kev Rios MD [phone] [Signature] Author: KEV RIOS) [Signed 07:11] documented in this encounter Plan of Treatment Not on filedocumented as of this encounter Visit Diagnoses Not on filedocumented in this encounter
--- OUTSIDE RECORDS SUMMARY | 2022-01-23 08:30 | XMS_ITS | Encounter Summary ---
:1980 Author Organization [place] Address [address] [facility] [place] [address] Care Team Providers Name Role Phone Unavailable [...] managed by the Ortho team with Dilaudid C SOFTWARE DEVELOPER. Per Orhto note, they will wean her [...]
--- OUTSIDE RECORDS SUMMARY | 2022-01-23 08:30 | XMS_ITS | Encounter Summary ---
:1980 Author Organization [place] Address [address] [facility] [place] [address] Care Team Providers Name Role Phone Unavailable [...] Navarro MD - 10/27/2009 2:40 PM CDT Molding Process Technician: Radha Navarro Status: Final Encounter: 27 Oct [...] CAPSULE DAILY WITH FOOD.; Rx Saline Nasal [place] 0.65 % Solution;USE 1 SPRAY IN EACH [...] By: Radha Navarro MD,Resident; 10/29/2009 4:[address] INSPECTOR; Author. Signed By: Cindy Pope M.D.; 10/29/2009 6:[address] INSPECTOR; Author. documented in this encounter Plan of Treatment Not on filedocumented as of this encounter Visit Diagnoses Not on filedocumented in this encounter
--- OUTSIDE RECORDS SUMMARY | 2022-01-23 08:30 | XMS_ITS | Encounter Summary ---
:1980 Author Organization [place] Address [facility] [place] [address] Care Team Providers Name Role Phone Unavailable Primary Care Provider Unavailable Encounter Details Date Type Department Care Team Description 10/30/2009 Emergency room [facility] Lamont Brito, [facility] Results XXX [place] [address] Social History Tobacco Use Types Packs/Day Years Used Date Smoking Tobacco: Never Assessed Sex Assigned at Date Recorded Not on file documented as of this encounter Progress Notes Lamont Ramos - 11/04/2009 5:30 AM CDT FINAL Please see T-note. Azul Forrester is a 29-year-old female who presents with 2-day history of dysuria. She states that she started taking an aorj-nln-ykoxaby medication, Urispas with improvement of her symptoms. [...] MD MT: PP Name: AZUL FORRESTER Account: [id number] : 1980 Visit Date: 10/30/2009 Document: [id number] cc: MAGGI FULLER MD documented in this encounter Plan of Treatment Not on filedocumented as of this encounter Visit Diagnoses Not on filedocumented in this encounter
--- OUTSIDE RECORDS SUMMARY | 2022-01-23 08:30 | XMS_ITS | Encounter Summary ---
:1980 Author Organization [place] Address [address] [facility] [place] [address] Care Team Providers Name Role Phone Unavailable [...]
--- OUTSIDE RECORDS SUMMARY | 2022-01-23 08:30 | XMS_ITS | Encounter Summary ---
:1980 Author Organization [place] Address [address] [facility] [place] [address] Care Team Providers Name Role Phone Unavailable Primary Care Provider Unavailable Encounter Details Date Type Department Care Team Description 10/18/2009 Historic Notes INTERFACED REPORT Kev Rios MD [facility] ORTH OPEDICS [address] [place], [place] [address] (Wo rk) Social History [...] next couple of days Kev Rios MD [phone] [Signature] Author: KEV RIOS) [Signed 08:11] documented in this encounter Plan of Treatment Not on filedocumented as of this encounter Visit Diagnoses Not on filedocumented in this encounter
--- OUTSIDE RECORDS SUMMARY | 2022-01-23 08:30 | XMS_ITS | Encounter Summary ---
:1980 Author Organization [place] Address [facility] [place] [address] Care Team Providers Name Role Phone Unavailable Primary Care Provider Unavailable Encounter Details Date Type Department Care Team Description 04/20/2011 Results Only [facility] PHYS Radha De La Fuente [address] [facility] MD [address] [place], [place] [phone] Social History Tobacco Use Types Packs/Day Years Used Date Smoking Tobacco: Never Assessed Sex Assigned at Date Recorded Not on file documented as of this encounter Plan of Treatment Not on filedocumented as of this encounter Procedures Procedure Name Priority Date/Time Associated Comments Diagnosis CHLAMYDIA TRACHOMATIS Routine 04/20/2011 4:32 PM Results for this PCR TV HOST procedure are i n the results section. documented in this encounter Results Chlamydia trachomatis PCR (04/20/2011 4:32 PM TV HOST) Component Value Ref Test Analysis Performed At [facility] Range Method Time Signature Specimen Cervical [facility] Chlamydia Negative for C. trachomatis rRNA by material lister mediated amplification. [facility] Trachomatis A negative result by transc ription mediated amplification does not preclude the MICROBIOLOGY PCR presence of C. trachomatis infection because results are dependent on proper and adequate collection, absence of inhibitors, and suffici ent rRNA to be detected. Specimen Anatomical Collection Method Collection Time Receive d Time (Source) Location / / Volume Laterality 04/20/2011 4:32 PM 2 4:37 TV HOST PM TV HOST Radha Navarro MD LAB - MICRO GENERAL ORDERABL ES Performing Organization Address City/State/ZIP Code Phon e Number [facility] [address] [place] [address] [facility] MICROBIOLOGY documented in this encounter Visit Diagnoses Not on filedocumented in this encounter
--- OUTSIDE RECORDS SUMMARY | 2022-01-23 08:30 | XMS_ITS | Encounter Summary ---
:1980 Author Organization [place] Address [address] [facility] [place] [address] Care Team Providers Name Role Phone Unavailable Primary Care Provider Unavailable Encounter Details Date Type Department Care Team Description 10/15/2009 Historic Notes INTERFACED REPORT Kev Rios MD [facility] ORTH OPEDICS [address] [place], [place] [address] (Wo rk) Social History [...] the week or weekend Kev Rios MD [phone] [Signature] Author: KEV RIOS) [Signed 06:51] documented in this encounter Plan of Treatment Not on filedocumented as of this encounter Visit Diagnoses Not on filedocumented in this encounter
--- OUTSIDE RECORDS SUMMARY | 2022-01-23 08:31 | XMS_ITS | Encounter Summary ---
:1980 Author Organization [place] Address [facility] [place] [address] Care Team Providers Name Role Phone Unavailable Primary Care Provider Unavailable Encounter Details Date Type Department Care Team Description 10/08/2009 Office Visit-[facility] INTERFACE [facility] DEPT Yuri Gray MD [address] [place], [place] [address] (Wo rk) Social History Tobacco Use Types Packs/Day Years Used Date Smoking Tobacco: Never Assessed Sex Assigned at Date Recorded Not on file documented as of this encounter Progress Notes Yuri Gray - 10/08/2009 4:00 PM CDT Laundry Washer: Yuri Gray Status: Final Encounter: 08 Oct [...] TABLET EVERY MORNING NEEDED.; Rx Saline Nasal [place] 0.65 % Solution;USE 1 SPRAY IN EACH NOSTRIL TWICE DAILY.; Rx Tretinoin 0.025 % Cream;APPLY SPARINGLY TO AFFECTED AREA(S) ONCE DAILY AT BEDTIME.; Rx AAA-MED RECONCILE;per pt.; RPT. 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 Vital Signs Recorded by [email or web address] on 08 Oct 2009 04:07 PM BP:118/85, LUE, Sitting, HR: 94 b/min, L Radial, Normal, Temp: 98.3 F, Oral, Height: 61.5 in, Weight: 153.6 lb, BMI: 28.6 kg/m2. Recorded by on 08 Oct 2009 04:14 PM BP:121/82, LUE, Sitting. SOAP HPI This 29 year old female presents as an established patient of Dr. JONNY RUIZ,[facility] here to do some blood tests for [...] as per form. Will fax results to [phone] as per patients wish. Patient denied genitourinary [...] By: Yuri Gray MD,Resident; 10/09/2009 3:48 PM CLERICAL SECRETARY; Author. Signed By: Keri Elias M.D.; 10/09/2009 3:52 PM CLERICAL SECRETARY; Author. documented in this encounter Plan of Treatment Not on filedocumented as of this encounter Visit Diagnoses Not on filedocumented in this encounter
--- OUTSIDE RECORDS SUMMARY | 2022-01-23 08:31 | XMS_ITS | Encounter Summary ---
:1980 Author Organization [place] Address [address] [facility] [place] [address] Care Team Providers Name Role Phone Unavailable Primary Care Provider Unavailable Encounter Details Date Type Department Care Team Description 10/12/2009 Historic Notes INTERFACED REPORT Interface, Transcript on, Social History Tobacco Use Types Packs/Day Years Used Date Smoking Tobacco: Never Assessed Sex Assigned at Date Recorded Not on file documented as of this encounter Progress Notes Interface, Set Up / Operator - 04/30/2010 8:57 PM CDT General [...] none Considerations - Developmental none Considerations - Mormonism none Considerations Signatures TAYLOR YAZAN (PT)[Signed 09:16] Authored: General Information, Role Relationships/Living Environment EZRA HERNANDEZ (RN)[Signed 19:02] Authored: Health and Illness, Review of Systems, Learning Assessment Interface, Set Up / Operator - 04/30/2010 8:57 PM CDT Progress [...] dry heaves. She is afraid to use STRAPPER OPERATOR as she states she once overdosed on tyelol by accident because she misread the dosage on the bottle, she is very fearful of getting too much pain medication. Also, many concerns about surgery, nerves, etc. STRAPPER OPERATOR and IVF infusing to L hand. Incision [...] with effect. Educated pt on use of STRAPPER OPERATOR and reassured and explain how OD is [...]
--- OUTSIDE RECORDS SUMMARY | 2022-01-23 08:31 | XMS_ITS | Encounter Summary ---
:1980 Author Organization [place] Address [facility] [place] [address] Care Team Providers Name Role Phone Unavailable Primary Care Provider Unavailable Encounter Details Date Type Department Care Team Description 10/08/2009 Historic Results INTERFACED REPORT Yuri Gray MD [address] [facility] [place] [address] (Wo rk) Social History Tobacco [...] LAB - BLOOD ORDERABLES Performing Organization Address City/State/[facility] Code Phon e Number MISYS [...]
--- OUTSIDE RECORDS SUMMARY | 2022-01-23 08:31 | XMS_ITS | Encounter Summary ---
:1980 Author Organization [place] Address [address] [place] [address]. [place] [address] Care Team Providers Name Role Phone Unavailable Primary Care Provider Unavailable Encounter Details Date Type Department Care Team Description 06/24/2009 Office Visit-[facility] Orthopaedic Clinic Bebeto Rothide Renzo Hartman MD [address] Floor, [id number] [place] [phone] Social History Tobacco Use Types Packs/Day Years Used Date Smoking Tobacco: Never Assessed Sex Assigned at Date Recorded Not on file documented as of this encounter Progress Notes Bebeto Roth - 06/24/2009 8:00 AM CDT Mover: Bebeto Roth Status: Final - Signature Encounter: 24 Jun 2009 Type: U Ortho Visit Department of Orthopaedic Surgery Administration: [address], [address] [place] [address] or [phone] Appointments [email or web address] Mail Address: [address], [address] [place] [address] Shmuel Ruiz MD General Orthopaedics Marcella Wilson [...] 06/24/2009 REFERRING PHYSICIAN: Candy Gutierrez M.D., of [facility]. CHIEF COMPLAINT: Low back pain and [...] who has done adjustments. 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 She lives with her mother. She has [...] Service DP:11 cc: Candy Gutierrez M.D., Resident [facility] Electronically signed by:Bebeto Roth M.D. Jun 25 2009 2:45PM PAI GOW MANAGER documented in this encounter Plan of Treatment Not on filedocumented as of this encounter Visit Diagnoses Not on filedocumented in this encounter
--- OUTSIDE RECORDS SUMMARY | 2022-01-23 08:31 | XMS_ITS | Encounter Summary ---
:1980 Author Organization [place] Address [address] [facility] [place] [address] Care Team Providers Name Role Phone Unavailable Primary Care Provider Unavailable Encounter Details Date Type Department Care Team Description 09/22/2009 Office Visit-[facility] INTERFACE P DEPT Amanda Brown MD [facility] [address] [place], [place] [phone] (Wo rk) Social History Tobacco Use Types Packs/Day Years Used Date Smoking Tobacco: Never Assessed Sex Assigned at Date Recorded Not on file documented as of this encounter Progress Notes Amanda Brown - 09/22/2009 9:40 AM CDT Americanization Teacher: Kevin Amanda Status: Final Encounter: 22 Sep [...] TABLET EVERY MORNING NEEDED.; Rx Saline Nasal [place] 0.65 % Solution;USE 1 SPRAY IN EACH [...] of exam: 09/22/09 Surgery Date: 10/13/09 Location: [place] Pre-op diagnosis: Scoliosis Chief Complaint: Pain HPI: [...] By: Amanda Brown MD,Resident; 09/22/2009 3:16 PM EQUINE SCIENCE INSTRUCTOR; Author. Signed By: Luigi Solano ; 09/22/2009 9:41 PM EQUINE SCIENCE INSTRUCTOR. documented in this encounter Plan of Treatment Not on filedocumented as of this encounter Visit Diagnoses Not on filedocumented in this encounter
--- OUTSIDE RECORDS SUMMARY | 2022-01-23 08:31 | XMS_ITS | Encounter Summary ---
:1980 Author Organization [place] Address [address] [facility] [place] [address] Care Team Providers Name Role Phone Unavailable Primary Care Provider Unavailable Encounter Details Date Type Department Care Team Description 05/18/2009 Office Visit-[facility] INTER[facility] DEPT Provider, [facility] Nurs e Social History Tobacco Use Types Packs/Day Years Used Date Smoking Tobacco: Never Assessed Sex Assigned at Date Recorded Not on file documented as of this encounter Progress Notes Provider, [facility] Nurse - 05/18/2009 4:00 PM CDT Fabrication Machine Operator: Nelson Holliday Status: Final Encounter: 18 May 2009 Type: FM Letters Autosend Letters Ms. AZUL FORRESTER [address] [place] [address] May 18, 2009 Dear Ms. AZUL FORRESTER [...] PAP NIL Patient Name: AZUL FORRESTER MR#: [id number] Specimen #: [id number] Collected: 04/07/2009 Received: 04/08/2009 Reported: 04/09/2009 11:39 Ordering Phy(s): JULES CAMPUZANO SPECIMEN/STAIN PROCESS: Pap thin layer prep screening (Sure[facility]) Pap-Cyto x 1, Digene Reflex HPV x 1 SOURCE: Cervical Pap thin layer prep screening ([facility]) SPECIMEN ADEQUACY: Satisfactory for evaluation. -Transformation zone component present. CYTOLOGIC INTERPRETATION: Negative for Intraepithelial Lesion or Malignancy Electronically signed out by: APOLLO Moulton (ASCP) Processed and screened at [facility] CLINICAL HISTORY: LMP: 03/30/09 TESTING LAB LOCATION: [facility], [address] [address] COLLECTION SITE: Client: [facility] Location: [facility]. Signature Signed By: Nelson Holliday [facility]; 05/18/2009 3:46 PM EMERGING SOLUTIONS EXECUTIVE. documented in this encounter Plan of Treatment Not on filedocumented as of this encounter Visit Diagnoses Not on filedocumented in this encounter
--- OUTSIDE RECORDS SUMMARY | 2022-01-23 08:31 | XMS_ITS | Encounter Summary ---
:1980 Author Organization [place] Address [facility] [place] [address] Care Team Providers Name Role Phone Unavailable Primary Care Provider Unavailable Encounter Details Date Type Department Care Team Description 06/30/2009 Results Only [facility] Poll y, Bebeto Hartman MD Radiology Results [address] [place], [place] [address] (Wo rk) Social History Tobacco Use Types [...]
--- OUTSIDE RECORDS SUMMARY | 2022-01-23 08:31 | XMS_ITS | Encounter Summary ---
:1980 Author Organization [place] Address [address] [facility] [place] [address] Care Team Providers Name Role Phone Unavailable Primary Care Provider Unavailable Encounter Details Date Type Department Care Team Description 05/18/2009 Office Visit-[facility] INTERFACE [facility] DEPT Candy Jensen Social History Tobacco Use Types Packs/Day Years Used Date Smoking Tobacco: Never Assessed Sex Assigned at Date Recorded Not on file documented as of this encounter Progress Notes Candy Jensen MD - 05/18/2009 4:00 PM CDT Confectionery Maker: Candy Jensen Status: Final Encounter: 18 May [...] on the face. The patient was given [id number] mg daily, she had been using it [...] By: Candy Jensen M.D.,Resident; 05/21/2009 3:59 PM AUTO PARTS SALESPERSON; Author. Signed By: Keri Elias M.D.; 05/25/2009 8:28 AM AUTO PARTS SALESPERSON; Author. documented in this encounter Plan of Treatment Not on filedocumented as of this encounter Visit Diagnoses Not on filedocumented in this encounter
--- OUTSIDE RECORDS SUMMARY | 2022-01-23 08:31 | XMS_ITS | Encounter Summary ---
:1980 Author Organization [place] Address [address] [facility] [place] [address] Care Team Providers Name Role Phone Unavailable Primary Care Provider Unavailable Encounter Details Date Type Department Care Team Description 06/24/2009 Results Only [facility] Bebeto Roth MD [facility] Results [address] [place], [place] [id number] (Wo rk) Social History Tobacco Use Types [...] to the right, her main thoracolumbar curve hserley ects to 28 degrees measured from T-9 [...]
--- OUTSIDE RECORDS SUMMARY | 2022-01-23 08:31 | XMS_ITS | Encounter Summary ---
:1980 Author Organization [place] Address [address] [facility] [place] [address] Care Team Providers Name Role Phone Unavailable Primary Care Provider Unavailable Encounter Details Date Type Department Care Team Description 10/11/2009 Historic Results [facility] Bebeto Roth [place] Renzo Hartman MD [place] [address] 1st Floor, [address] [place] [id number] [address] [address] [place], [place] [address] Social History Tobacco Use [...] Crossmatch red cells (10/11/2009 9:21 AM CDT) [facility] Method Time Signature ABO O MISYS RH(D) Pos MISYS Antibody Neg MISYS Screen Blood Red Cells MISYS Component Type Units Ordered 2 MISYS Specimen 10/14/2009 MISYS Expires Unit Number [id number] MISYS Blood Red Blood MISYS Component Cells Type Leukocyte Reduced Status of No longer MISYS Unit available 10/15/2009 0300 Unit Number [id number] MISYS Blood Red Blood MISYS Component Cells [...]
--- OUTSIDE RECORDS SUMMARY | 2022-01-23 08:31 | XMS_ITS | Encounter Summary ---
:1980 Author Organization [place] Address [address] [facility] [address] Care Team Providers Name Role Phone Unavailable [...] 04/07/2009 3:27 PM Results for this PCR WEB PAGE DEVELOPER procedure are i n the results section. HIV 1 AND 2 ANTIBODY Routine 04/07/2009 3:27 PM R esults for this (QUEST) WEB PAGE DEVELOPER procedure are i n the results section. HEPATITIS C ANTIBODY Routine 04/07/2009 3:27 PM R esults for this WEB PAGE DEVELOPER procedure are i n the results section. HEPATITIS B SURFACE Routine 04/07/2009 3:27 PM Re sults for this ANTIBODY WEB PAGE DEVELOPER procedure are i n the results section. HEPATITIS B SURFACE Routine 04/07/2009 3:27 PM Re sults for this ANTIGEN WEB PAGE DEVELOPER procedure are i n the results section. CHLAMYDIA TRACHOMATIS Routine 04/07/2009 3:27 PM Results for this PCR WEB PAGE DEVELOPER procedure are i n the results section. documented in this encounter Results Chlamydia trachomatis PCR (04/07/2009 3:27 PM WEB PAGE DEVELOPER) Component Value Ref Test Analysis Performed At [facility] Range Method Time Signature Specimen Cervical MISYS Description Chlamydia Negative for C. MISYS Trachomatis PCR trachomatis rRNA by animal physiologist mediated amplification. Comment: A negative result by animal physiologist medi ated amplification does not preclude the presence of C. trachomatis infection be cause results are dependent on proper and adequate collection, absence of inh ibitors, and sufficient rRNA to be detected. Specimen Anatomical Collection Method Collection Time Receive d Time (Source) Location / / Volume Laterality 04/07/2009 3:27 PM 0 3:32 WEB PAGE DEVELOPER PM WEB PAGE DEVELOPER Candy Jensen LAB - MICRO GENERAL ORDERABL ES Performing Organization Address [facility] Code Phon e Number MISYS Neisseria gonorrhoeae PCR (04/07/2009 3:27 PM WEB PAGE DEVELOPER) [facility] Method Time Signature Specimen Cervical MISYS Descrip N Gonorrhea Negative for N. MISYS PCR gonorrhoeae rRNA by animal physiologist mediated amplification. Comment: A negative result by animal physiologist medi ated amplification does not preclude the presence of N. gonorrhoeae infection be cause results are dependent on proper and adequate collection, absence of inh ibitors, and sufficient rRNA to be detected. Specimen Anatomical Collection Method Collection Time Receive d Time (Source) Location / / Volume Laterality 04/07/2009 3:27 PM 0 3:32 WEB PAGE DEVELOPER PM WEB PAGE DEVELOPER Candy Jensen LAB - MICRO GENERAL ORDERABL ES Performing Organization Address [facility] Phon e Number MISYS Hepatitis B surface antibody (04/07/2009 3:27 PM WEB PAGE DEVELOPER) athologist Signature Hep B Surface 993.0 MISYS Leatha Comment: Positive, Patient is considered to be im mune to infection with hepatitis B when the value is greater than or equal to 1 2.0 mlU/mL. Specimen Anatomical Collection Method Collection Time Receive d Time (Source) Location / / Volume Laterality 04/07/2009 3:27 PM 0 3:32 WEB PAGE DEVELOPER PM WEB PAGE DEVELOPER Candy Odellkell Howard LAB - BLOOD ORDERABLES Performing Organization Address [facility]/ZIP Code Phon e Number MISYS Hepatitis B surface antigen (04/07/2009 3:27 PM WEB PAGE DEVELOPER) athologist Signature Hep B Surface Negative NEG MISYS Agn Specimen Anatomical Collection Method Collection Time Receive d Time (Source) Location / / Volume Laterality 04/07/2009 3:27 PM 0 3:32 WEB PAGE DEVELOPER PM WEB PAGE DEVELOPER Candy Esther Christenboodaniella LAB - BLOOD ORDERABLES Performing Organization Address [facility] Phon e Number MISYS Hepatitis C antibody (04/07/2009 3:27 PM WEB PAGE DEVELOPER) athologist Signature Hepatitis C Negative NEG MISYS Antibody Specimen Anatomical Collection Method Collection Time Receive d Time (Source) Location / / Volume Laterality 04/07/2009 3:27 PM 0 3:33 WEB PAGE DEVELOPER PM WEB PAGE DEVELOPER Candy Jensen LAB - BLOOD ORDERABLES Performing Organization Address [facility] Phon e Number MISYS HIV 1 and 2 Antibody (04/07/2009 3:27 PM WEB PAGE DEVELOPER) athologist Signature HIV 1&2 Negative NEG MISYS Antibody Specimen Anatomical Collection Method Collection Time Receive d Time (Source) Location / / Volume Laterality 04/07/2009 3:27 PM 0 3:33 WEB PAGE DEVELOPER PM WEB PAGE DEVELOPER Candy Worthyaj LAB - BLOOD ORDERABLES Performing Organization Address [facility] Phon e Number MISYS documented in this encounter Visit Diagnoses Not on filedocumented in this encounter
--- OUTSIDE RECORDS SUMMARY | 2022-01-23 08:31 | XMS_ITS | Encounter Summary ---
:1980 Author Organization [place] Address [facility] [place] [address] Care Team Providers Name Role Phone Unavailable Primary Care Provider Unavailable Encounter Details Date Type Department Care Team Description 10/12/[address] [facility] Myles De Oliveira (Tablet Technician) [facility] MD Devan Results [address] [place], [place] [phone] Social History Tobacco Use Types Packs/Day Years [...] substance. SURGEON: Myles De Oliveira Jr., MD. HAND ROLLER ENGRAVER: Kev Rios MD. SPONGE AND NEEDLE COUNT: [...] and position prone on the Chriss table 4-bulk filler frame. She was then prepared and draped in the usual sterile fashion. Because of some posterior acne on her scan, 2 separate sterile preps were done with DuraPrep. The spine was then exposed from T10 through L3. Intraoperative imaging was used to confirm the appropriate level of dissection. Once the spine was exposed, the tracking arc for the Tourlandish navigation system was placed on the spinous [...] MD MT: MAYRA Name: AZUL FORRESTER Account: [id number] : 1980 Procedure Date: 10/12/2009 Document: [id number] cc: Azul Forrester [facility] documented in this encounter Plan of Treatment Not on filedocumented as of this encounter Visit Diagnoses Not on filedocumented in this encounter
--- OUTSIDE RECORDS SUMMARY | 2022-01-23 08:31 | XMS_ITS | Encounter Summary ---
:1980 Author Organization [place] Address [address] [facility] [place] [address] Care Team Providers Name Role Phone Unavailable Primary Care Provider Unavailable Encounter Details Date Type Department Care Team Description 10/13/2009 Historic Notes INTERFACED REPORT Interface, Transcript on, Social History Tobacco Use Types Packs/Day Years Used Date Smoking Tobacco: Never Assessed Sex Assigned at Date Recorded Not on file documented as of this encounter Progress Notes Interface, Pastry Cook Apprentice - 04/30/2010 8:57 PM CDT Notification - Notified Person:: Resident - Notified Persons Balwindercurtis Name: - Notification Talked with Physician Interaction:: - Orders received?: No - Comments:: Discussed elevated HR and sudden onset of shaking with [facility] residents rounding on pt. Resident assessed pt. No new orders. Will continue to monitor. EZRA Cardoso)[Signed 00:05] Authored: Notification Interface, Pastry Cook Apprentice - 04/30/2010 8:57 PM CDT Notification - Notified Person:: Resident - Notified Persons Wild Name: - Notification Talked with Physician Interaction:: - Purpose of Change in condition notification:: - Orders received?: Yes - Comments:: cALLED MD to discuss pt's unresolved nausea and anxiety (post zofran and valuim). Orders for compazine, and ativan received and given. Pt improved. EZRA Cardoso)[Signed 00:03] Authored: Notification Interface, Pastry Cook Apprentice - 04/30/2010 8:56 PM CDT General Information [...] Mobility: Rolling/Turning - Level of stand-by assist [place]: - Physical verbal cues; supervision Assist/Nonphysical Assist: - Assistive Device: bed rails Bed Mobility: Scooting/Bridging - Level of stand-by assist [place]: - Physical verbal cues; does not complete Assist/Nonphysical Assist: Bed Mobility: Sit to Supine - Level of contact guard [place]: - Physical verbal cues; 1 person assist Assist/Nonphysical Assist: Bed Mobility: Supine to Sit - Level of minimum assist (75% patients effort), contact [place]: guard - Physical 1 person assist; verbal cues Assist/Nonphysical Assist: - Assistive Device: bed rails Bed Mobility Analysis - Bed Mobility impaired ability to control trunk for mobility Limitations: - Impairments pain; post surgical precautions; fear and Contributing to anxiety Impaired Bed Mobility: Transfer: Sit to Stand - Level of unable to perform, pt anxious and nauseous, felt [place]: like she would vomit, declined Balance Skills [...] Muscle Tone, Treatment Plan, Clinical Impression Interface, Pastry Cook Apprentice - 04/30/2010 8:54 PM CDT Progress Note [...] out of bed. I: did not DC OB/GYN PHYSICIAN because pt did not want to take pills. encourage use of IS. A: dressing to incision CDI. rates pain 8 but able to sleep. Signatures Abmer Hedrick (RN)[Signed 14:37] Authored: Progress Note documented in this encounter Plan of Treatment Not on filedocumented as of this encounter Visit Diagnoses Not on filedocumented in this encounter
--- OUTSIDE RECORDS SUMMARY | 2022-01-23 08:31 | XMS_ITS | Encounter Summary ---
:1980 Author Organization [place] Address [address] [facility] [place] [address] Care Team Providers Name Role Phone Unavailable Primary Care Provider Unavailable Encounter Details Date Type Department Care Team Description 06/24/2009 Office Visit-[facility] INTERFACE [facility] DEPT Provider, Rust Nurs e Social History Tobacco Use Types Packs/Day Years Used Date Smoking Tobacco: Never Assessed Sex Assigned at Date Recorded Not on file documented as of this encounter Progress Notes Provider, Rust Nurse - 06/24/2009 8:00 AM CDT Wheel Blocker: Nasrin Demarco Status: Final Encounter: 24 Jun [...] By: Nasrin Demarco RN; 06/24/2009 4:16 PM GLUE WHEEL OPERATOR. Provider, Rust Nurse - 06/24/2009 8:00 AM CDT Wheel Blocker: Melvi Juárez Status: Final Encounter: 24 Jun 2009 Type: Rooming Note Reason For Visit Scoliosis eval. Do you have any other appointments, tests or procedures within the [facility] system for this same day? 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 Med list offered and patient declined. Signature Signed By: Melvi Juárez LP; 06/24/2009 8:05 AM GLUE WHEEL OPERATOR. documented in this encounter Plan of Treatment Not on filedocumented as of this encounter Visit Diagnoses Not on filedocumented in this encounter
--- OUTSIDE RECORDS SUMMARY | 2022-01-23 08:31 | XMS_ITS | Encounter Summary ---
:1980 Author Organization [place] Address [address] [facility] [place] [address] Care Team Providers Name Role Phone Unavailable [...] seroquel. Admission - Date: 22:00 - Service: [facility]. - Chief Complaint: Back pain. [...]
--- OUTSIDE RECORDS SUMMARY | 2022-01-23 08:31 | XMS_ITS | Encounter Summary ---
:1980 Author Organization [place] Address [facility] [place] [address] Care Team Providers Name Role Phone Unavailable Primary Care Provider Unavailable Encounter Details Date Type Department Care Team Description 10/12/2009 Historic Results Orthopa[facility] Clinic Bebeto Roth [facility] MD Devan [place] [address] [facility] [address] 1st Floor, [address] [place] [address] [address] [address] [place], [place] [address] Social History Tobacco Use [...] [facility] Range Method Time Signature Source Catheterized MISYS Urine Color Urine Straw MISYS Appearance Urine Clear MISYS Glucose Urine Negative NEG MISYS mg/dL Bilirubin Urine Negative NEG MISYS Ketones Urine Negative NEG MISYS mg/dL Specific [place] 1.005 1.003 - MISYS Urine 1.035 Blood [...] 10:17 10/12/2009 AM CDT 10:19 AM CDT Beebto Roth MD LAB - URINE ORDERABLES Performing Organization Address City/[facility] Phon e Number MISYS Urine culture (10/12/2009 10:17 AM CDT) Component Value Ref Test Analysis Performed At [facility] Method Time Signature Specimen Catheterized MISYS Description Urine Culture Micro No growth MISYS Micro Report FINAL 10/13/2009 MISYS Status Specimen Anatomical Collection Method Collection Time Receive d Time (Source) Location / / Volume Laterality 10/12/2009 10:17 10/12/2009 AM CDT 10:19 AM CDT Bebeto Roth MD LAB - MICRO GENERAL ORDERABL ES Performing Organization Address City/[facility]/ZIP Code Phon e Number MISYS (ABNORMAL) Routine UA with microscopic (10/12/2009 8:29 AM CDT) Component Value Ref Test Analysis Performed At [facility] Range Method Time Signature Source Unspecified MISYS Urine Color Urine Yellow MISYS Appearance Urine Clear MISYS Glucose Urine Negative NEG MISYS mg/dL Bilirubin Urine Negative NEG MISYS Ketones Urine Negative NEG MISYS mg/dL Specific [place] 1.018 1.003 - MISYS Urine 1.035 Blood [...]
--- OUTSIDE RECORDS SUMMARY | 2022-01-23 08:31 | XMS_ITS | Encounter Summary ---
:1980 Author Organization [place] Address [address] [facility] [place] [address] Care Team Providers Name Role Phone Unavailable Primary Care Provider Unavailable Encounter Details Date Type Department Care Team Description 04/07/2009 Office Visit-[facility] INTERFACE [facility] DE[facility] Candy Jensen Social History Tobacco Use Types Packs/Day Years Used Date Smoking Tobacco: Never Assessed Sex Assigned at Date Recorded Not on file documented as of this encounter Progress Notes Candy Jensen MD - 04/07/2009 2:20 PM CST Seeing Eye Dog Trainer: Candy Jensen Status: Final Encounter: 07 Apr [...] By: Candy Gutierrez M.D.,Resident; 04/07/2009 5:47 PM SWITCHBOARD CLERK; Author. Signed By: Cindy Pope M.D.; 04/07/2009 9:21 PM SWITCHBOARD CLERK; Author. documented in this encounter Plan of Treatment Not on filedocumented as of this encounter Visit Diagnoses Not on filedocumented in this encounter
--- OUTSIDE RECORDS SUMMARY | 2022-01-23 08:31 | XMS_ITS | Encounter Summary ---
:1980 Author Organization [place] Address [address] [place] [address]. [place] [address] Care Team Providers Name Role Phone Unavailable Primary Care Provider Unavailable Encounter Details Date Type Department Care Team Description 07/01/2009 Office Visit-[facility] Orthopaedic Clinic Bebeto Roth MD [address] 1[address] Floor, [address] [place] [address] Social History Tobacco Use Types Packs/Day Years Used Date Smoking Tobacco: Never Assessed Sex Assigned at Date Recorded Not on file documented as of this encounter Progress Notes Bebeto Roth - 07/01/2009 10:24 AM CDT Jackspooler: Bebeto Roth Status: Final - Signature Encounter: 01 Jul 2009 Type: U Ortho Letter Department of Orthopaedic Surgery Administration: Suite [facility], [address] [place] [address] or [phone] Appointments [email or web address] Mail Address: [place] [address], [address] [place] [id number] Shmuel Ruiz MD General Orthopaedics Marcella [place] [...] Pediatric July 01, 2009 Azul Garg [address] [facility] [place] [address] RE: Azul [place] : DOS: July 01, [...] Service DP:11 cc: Candy Jensen MD, Resident [facility] [address] [place] [address] Electronically signed by:Bebeto Roth M.D. Jul 08 2009 9:14AM HARVEST SUPERVISOR documented in this encounter Plan of Treatment Not on filedocumented as of this encounter Visit Diagnoses Not on filedocumented in this encounter
--- OUTSIDE RECORDS SUMMARY | 2022-01-23 08:31 | XMS_ITS | Encounter Summary ---
:1980 Author Organization [place] Address [facility] [place] [address] Care Team Providers Name Role Phone Unavailable Primary Care Provider Unavailable Encounter Details Date Type Department Care Team Description 10/12/2009 Results Only [facility] Poll y, Bebeto Hartman MD Radiology Results [address] [place], [place] [address] (Wo rk) Social History Tobacco Use Types Packs/Day Years Used Date Smoking Tobacco: Never Assessed Sex Assigned at Date Recorded Not on file documented as of this encounter Plan of Treatment Not on filedocumented as of this encounter Procedures Procedure Name Priority Date/Time Associated Diagnosis Comme [facility] X-RAY SPINE Routine 10/12/2009 2:54 PM Results [...]
--- OUTSIDE RECORDS SUMMARY | 2022-01-23 08:31 | XMS_ITS | Encounter Summary ---
:1980 Author Organization [place] Address [facility] [place] [address] Care Team Providers Name Role Phone Unavailable Primary Care Provider Unavailable Encounter Details Date Type Department Care Team Description 06/30/2009 Office Visit-[facility] Orthopaedic Clinic Unknown, Provider [facility] 1st Floor, [address] [facility] [place] [phone] Social History Tobacco Use Types Packs/Day Years Used Date Smoking Tobacco: Never Assessed Sex Assigned at Date Recorded Not on file documented as of this encounter Progress Notes Unknown, Provider - 06/30/2009 8:19 AM CDT Wirer Maintenance: Rhonda Bush Status: Final - Signature Encounter: 30 Jun 2009 Type: U Ortho [place] Note Fax received from [employer] insurance for Approval on Fusion of Spine Lumbar surgery. Code [id number] Electronically signed by:Rhonda Bush Jun 30 2009 8:20AM HOSPICE PLAN ADMINISTRATOR Administrative documented in this encounter Plan of Treatment Not on filedocumented as of this encounter Visit Diagnoses Not on filedocumented in this encounter
--- OUTSIDE RECORDS SUMMARY | 2022-01-23 08:31 | XMS_ITS | Encounter Summary ---
:1980 Author Organization [place] Address [facility] [place] [address] Care Team Providers Name Role Phone Unavailable Primary Care Provider Unavailable Encounter Details Date Type Department Care Team Description 10/13/2009 Historic Results INTERFACED REPORT Kev Rios MD [facility] ORTH OPEDICS [address] [place], [place] [address] (Wo rk) Social History [...]
--- OUTSIDE RECORDS SUMMARY | 2022-01-23 08:32 | XMS_ITS | Encounter Summary ---
:1980 Author Organization [place] Address [facility] [place] [address] Care Team Providers Name Role Phone Unavailable [...] 12:00 AM Re sults for this SCREEN AIRPORT SCREENER procedure are i n the results section. documented in this encounter Results A THIN LAYER PAP SCREEN (04/07/2009 12:00 AM AIRPORT SCREENER) Component Value Ref Test Analysis Performed At [facility] Range Method Time Signature PAP NIL COPATH Copath Report COPATH Patient Name: AZUL FORRESTER MR#: [id number] Specimen #: [id number] Collected: 04/07/2009 Received: 04/08/2009 Reported: 04/09/2009 11:39 [...] APOLLO [place] (ASCP) Processed and screened at [facility] diane [facility]ly [facility] CLINICAL HISTORY: LMP: 03/30/09 TESTING LAB LOCATION: [facility], [address] ??[phone] COLLECTION SITE: Client: ??[facility] Location: [facility] (B) Specimen (Source) Anatomical Collection Method Collection Time Re ceived Time Location / / Volume Laterality 04/07/2009 04/08/2009 10:1 0 AM AIRPORT SCREENER Jules Campuzano LABORATORY Performing Organization Address City/State/ZIP Code Phon e Number COPATH documented in this encounter Visit Diagnoses Not on filedocumented in this encounter
[2022-01-23 09:18] LABS: Amnisure Rom* POSITIVE
[2022-01-23] MEDS: CALCIUM CARBONATE 500 MG CHEW PO ×2 (10:11→20:15)
--- NOTE | 2022-01-23 10:43 | P.OBHP_ITS ---
OB - H&P: HPI Labor/Induction History of Present Illness Time Seen by Provider: 10:43 Date Seen: 01/23/22 Chief Complaint: Spontaneous rupture of membranes Chief complaint: Maternity Narrative: HPI: Azul is a 41-year-old 9 para 4135 at 38 weeks 1 day gestation with an VINCENT of 02/05/2022. She is being admitted for due to PROM. Her membranes are ruptured. Her complete history and physical was completed by Dr. Amelia Mead on 01/21/2022 please see that note for complete details. OB PROBLEM LIST -1-3-5 Blood type O+ 1. AMA * Maternity T21 07/06/2021: Negative * Level 2 ultrasound:normal * Weekly BPP or NST starting at 36 weeks. 2. Obesity, BMI 31.2 * Hemoglobin A1c: 5.5% * Recommend aspirin 81 mg at 12 weeks secondary to 1 & 2 3. Probable gestational diabetes at 20 weeks. Most fasting values slightly elevated on testing. * History of gestational diabetes with last 3 pregnancies, all diet controlled. * She does not tolerate Glucola. * Patient checked blood sugars q.i.d. 1 week prior to appointment * 04/19: elevated fasting, postprandials normal, will add evening snack * Gestational diabetes: diet controlled * 04/19: Fastings improved. 2 mildly elevated fastings and 1 elevated postprandial in the past 2 weeks. * Nutrition referral: Completed. * Blood sugar control good with diet alone 12/01/2021. * 12/17/2021: Greater than 50% of fastings are elevated. Post prandials are normal with the exception of 2 * Endocrine referral 12/17/2021: discussed initiation of small dose of NPH. Azul did not start and sugars are good * 12/17 (32 6/7) growth ultrasound with BPP: EFW is 56.4%, AC 85%, SDP 6.49. BPP 09/20 * Weekly testing. Weekly NSTs/growth with BPP at 36 weeks. * Delivery 39-39 07/20 4. History of spinal fusion, thoracic x 2. Indication: Scoliosis 5. Anemia at her first visit 07/06/21: hgb 11.2 * Start Fe supplement daily in addition to vitamin, take w/ food. * Recheck hgb at 16/20 weeks: 10.0 on 09/22/21 * hemoglobin at 28 weeks 11/16/21: 11.O * Hgb 12.3 on 01/07/22 6. First was at 36 weeks after dx PPROM. All subsequent deliveries at term. 7. Patient complains of pruritus of the soles of feet * LFTs and bile acids pending 12/22/2021: wnl, bile acid <1. Flu shot: Declined Tdap: Declined OBJECTIVE: Vital signs per medical record. Heart: Regular rate and rhythm without gallop, rub or murmur. Chest: Clear to auscultation bilaterally without wheezes, rales or rhonchi. Abdomen: Gravid and nontender. Normal bowel sounds throughout. EFM: Baseline 140 s, (positive) accels, (negative) decels, moderate variability. Reactive. Category 1 TOCO: Very few contractions. SVE per nursincm/50%/-3/soft/mid. Guzman score: 6 Extremities: No pain, edema or cyanosis. ASSESSMENT: Obzlnu-zljg-xusg-old 9 para 4135 at 38 weeks 1 day gestation admitted for PROM. PLAN: 1. The patient desires to try to labor without medication for analgesia. She states she has had an epidural with all of her deliveries. 2. GBS negative. 3. Expect vaginal delivery. 4. Start pitocin if she does not go into spontaneous labor by 1pm 5. Because she is a grand multiparous patient a CBC and type and screen were ordered as she has an increased risk for hemorrhage. Meds Home Medications and Allergies Home Medications Medication Instructions Recorded Confirmed Type acetaminophen 500 mg tablet 1,000 mg PO Q6H PRN 09/22/21 01/23/22 History (Tylenol Extra Strength) prenat.vits,carlo,[id number] 1 tab PO QDAY 09/22/21 01/23/22 History blood-glucose meter (Accu-Chek #1 ea 01/21/22 01/23/22 History Guide Glucose Meter) Allergies Allergy/AdvReac Type Severity Reaction Status Date / Time iron Allergy Intermediate Hives Verified 01/23/22 10:30 OB - H&P: Exam Physical Exam: Vital signs: Temp Pulse Resp BP Pulse Ox 98.5 F 101 H 16 119/69 96 01/23/22 10:13 01/23/22 10:14 01/23/22 10:13 01/23/22 10:14 01/23/22 08:38
[2022-01-23 11:33] LABS: SARS PCR* Negative SARS-CoV-2 (Negative)
[2022-01-23 13:04] LABS: Basophils Absolute Auto 0.01 K/uL (0.00-0.30); Basophils Percent Auto 0.1 % (0.0-3.0); Eosinophils Absolute Auto 0.07 K/uL (0.00-0.50); Eosinophils Percent Auto 0.9 % (0.0-7.0); Hematocrit 39.4 % (33.0-51.0); Hemoglobin* 13.1 gm/dL (12.0-16.0); Immature Granulocytes Abs Auto 0.02 K/uL (0.00-0.30); Immature Granulocytes Pct Auto 0.3 %; Mean Corpuscular HGB Conc 33 gm/dL (32-36); Mean Corpuscular Hemoglobin 26 pg (26-34); Mean Corpuscular Volume 79 fL (80-100); Monocytes Percent Auto 4.7 % (0.0-11.0); Platelet Count* 245 K/uL (140-440); RDW Coefficient of Variation % 13.9 % (11.5-15.5); Red Blood Count 4.97 m/uL (4.00-5.20); White Blood Count* 7.83 K/uL (4.50-11.00)
[2022-01-23] MEDS: LACTATED RINGERS 1000 ML 1,000 ML 124 ML IV (13:15)
[2022-01-23] MEDS: OXYTOCIN 30 unit/500 ML in NS 30 UNIT/500 ML BAG IVPB (13:16)
[2022-01-23 13:19] LABS: Slide Review Reflex No
[2022-01-23] MEDS: ACETAMINOPHEN 500 MG TABLET 1000 MG PO (13:21)
[2022-01-23] MEDS: LACTATED RINGERS 1000 ML 1,000 ML 111 ML IV (21:50)
[2022-01-23] MEDS: SODIUM CHLORIDE 0.9 % (FLUSH) 10 ML SYRINGE IVF (23:35)
[2022-01-24] VITALS (83 sets, daily range): BP systolic 93–159; BP diastolic 51–83; PULSE 62–118; RESP 16–18; TEMP 36.4–36.8; O2SAT 83–100
--- NOTE | 2022-01-24 00:55 | PM.ANBPRC ---
[facility] Medical History (Updated 01/21/22 @ 15:28 by Amelia Mead MD) Anemia complicating Gestational diabetes Normal spontaneous vaginal delivery Recurrent loss Surgical History (Updated 01/21/22 @ 15:17 by Amelia Mead MD) History of spinal fusion Family History (Updated 01/21/22 @ 15:17 by Amelia Mead MD) Mother Diabetes Social History (Updated 01/21/22 @ 15:18 by Amelia Mead MD) Narrative: Lives in [place] with 4 kids and fiancee. Works at [employer]. No smoking, drinking alcohol, or recreational drug use. Smoking Status: Never smoker Meds Home Medications and Allergies Home Medications Medication Instructions Recorded Confirmed Type acetaminophen 500 mg tablet 1,000 mg PO Q6H PRN 09/22/21 01/23/22 History (Tylenol Extra Strength) prenat.vits,carlo,uap-yrfq-gjuep 1 tab PO QDAY 09/22/21 01/23/22 History blood-glucose meter (Accu-Chek #1 ea 01/21/22 01/23/22 History Guide Glucose Meter) Allergies Allergy/AdvReac Type Severity Reaction Status Date / Time iron Allergy Intermediate Hives Verified 01/23/22 10:30 Results Labs Labs: Laboratory Results - last 24 hr 01/23/22 01/23/22 01/23/22 09:05 10:00 12:45 WBC 7.83 RBC 4.97 Hgb 13.1 Hct 39.4 MCV 79 L MCH 26 MCHC 33 RDW Coeff of Ned 13.9 Plt Count 245 Neut % (Auto) 80.0 H Lymph % (Auto) 14.0 L [place] % (Auto) 4.7 Eos % (Auto) 0.9 Baso % (Auto) 0.1 Neut # (Auto) 6.30 Lymph # (Auto) 1.10 [place] # (Auto) 0.40 Eos # (Auto) 0.07 Baso # (Auto) 0.01 Abs Immat Gran (auto) 0.02 Imm/Tot Granulo (auto) 0.3 Membrane Rupture POSITIVE SARS-CoV-2 (PCR) Negative SARS-CoV-2 Blood Type Antibody Screen 01/23/22 12:45 WBC RBC Hgb Hct MCV MCH MCHC RDW Coeff of Ned Plt Count Neut % (Auto) Lymph % (Auto) [place] % (Auto) Eos % (Auto) Baso % (Auto) Neut # (Auto) Lymph # (Auto) [place] # (Auto) Eos # (Auto) Baso # (Auto) Abs Immat Gran (auto) Imm/Tot Granulo (auto) Membrane Rupture SARS-CoV-2 (PCR) Blood Type O Positive Antibody Screen NEGATIVE Vital Signs Vital Signs: Last Vital Signs Temp 97.8 F 01/23/22 22:24 Pulse 107 H 01/24/22 00:54 Resp 18 01/23/22 21:59 BP 124/65 01/24/22 00:54 Pulse Ox 91 01/24/22 00:53 Weight: 77.746 kg Height: 160.02 cm Anesthesia Procedures Intrathecal Patient Location: OB Start Time: 00:15 Stop Time: 00:56 Start Date: 01/24/22 Stop Date: 01/24/22 Reason for Block: procedure for pain Patient Position: sitting Performed By: Trenton Spaulding Preanesthetic Checklist: IV checked, risks and benefits discussed, surgical consent, monitors and equipment checked, pre-op evaluation, timeout performed and anesthesia consent Prep: chlorhexidine gluconate Monitoring: blood pressure monitoring, continuous pulse oximetry and heart rate Approach: midline Vertebral Space: lumbar (1-5) Needle Type: Sprotte Injection Technique: single-shot Needle gauge: 25 Needle Length (cm): 10 cm
[2022-01-24] MEDS: PHENYLEPHRINE 100 MCG/ML SYRINGE IVP (01:02)
[2022-01-24] MEDS: OXYTOCIN 30 unit/500 ML in NS 30 UNIT/500 ML BAG 300 UNIT IVPB (02:48)
--- NOTE | 2022-01-24 03:05 | P.PCN_ITS ---
Procedure Note Time Seen by Provider: 03:05 Date Seen: 01/24/22 Date of procedure: 01/24/22 Will [facility] bill your pro fee for this procedure?: Yes Procedure: Azul is a 41 year-old G 9 P 4135 now 6 admitted on 01/23/2022 at 10:00 a.m. at 38 Weeks, 1 Day gestation for PROM. PROM occurred at 7:00 a.m. on [date] with clear fluid. Labor Analgesia: ITN Pitocin: Yes: maximum 15mu/min Labor onset: 01/23/2022 at 8:45 p.m.. Complete: 01/24/2022 at 1:59 a.m.. Pushin01/24/2022 at 2:15 a.m.. heart tones during second stage were: Category 2 with baseline of 140s, moderate variability with accelerations and early decelerations: Reassuring. At 2:42 a.m. a viable male infant delivered in vertex direct OA presentation over first-degree perineal laceration via normal spontaneous vaginal delivery. The was placed on maternal abdomen. Cord was clamped and cut after the cord stopped pulsing approximately 5-7 minutes after delivery. Nose and mouth were bulb suctioned. Infant weight pending. 7 at 1 minute and 9 at 5 minutes. Shoulder dystocia: No. Nuchal cord: Yes: 1 loose nuchal cord easily reduced at the perineum prior to delivery of the 's shoulders. Placenta delivered spontaneously and complete at 2:52 a.m. with a 3 vessel cord. Laceration(s): First-degree perineal. Repaired using 4-0 Vicryl : 2 interrupted sutures. Blood loss: 245 mL. Blood loss measurement type: Quantitative Sponge and needles counts are correct. Specimen: None Mother and were stable after delivery. Infant's name: Jonny The patient is planning on breast feeding. Surgeon: Valarie Rider MD
[2022-01-24] MEDS: ACETAMINOPHEN 500 MG TABLET 1000 MG PO ×2 (04:32→17:39)
[2022-01-24] MEDS: IBUPROFEN 600 MG TABLET PO ×2 (08:16→20:00)
[2022-01-24] MEDS: OXYCODONE 5 MG TABLET PO ×3 (12:58→21:37)
[2022-01-24] MEDS: CALCIUM CARBONATE 500 MG CHEW PO (13:58)
[2022-01-24] MEDS: DOCUSATE SODIUM 100 MG CAPSULE PO (20:00)
[2022-01-25] MEDS: OXYCODONE 5 MG TABLET PO ×3 (01:40→10:07)
[2022-01-25] MEDS: CALCIUM CARBONATE 500 MG CHEW PO (01:40)
[2022-01-25 01:42] VITALS: BP 103/68; PULSE 94; RESP 16; TEMP 36.6; O2SAT 97
[2022-01-25] MEDS: ACETAMINOPHEN 500 MG TABLET 1000 MG PO (05:37)
[2022-01-25 06:31] LABS: Hemoglobin* 10.5 gm/dL (12.0-16.0)
--- NOTE | 2022-01-25 07:59 | P.DS_ITS ---
DS: Providers Provider Time Seen by Provider: 07:59 Date Seen: 01/25/22 Date of admission: 01/23/22 13:55 Primary care physician: Not a Local Provider Admitting Clinician: Cleo Alcantar MD Attending Physician on discharge: Marialuisa Patterson CNM Date of Discharge: 01/25/22 DS: Diagnosis Discharge Diagnosis (1) Acute hemorrhoid: Status: Acute (2) First degree perineal laceration: Status: Acute (3) Lactating mother: Status: Acute (4) (normal spontaneous vaginal delivery): Status: Acute Problem details: Jonny Gee (5) Gestational diabetes: Status: Acute Problem details: diet-controlled Exam Const: Vital Signs, click to edit/add: Vital Signs - 24 hr 01/24/22 08:07 01/24/22 08:16 01/24/22 12:46 Temperature 98.1 F 98.1 F 98.2 F Pulse Rate [Pulse Oximeter] 75 100 Respiratory Rate 16 16 Blood Pressure [Le ft Arm] 98/65 93/64 Pulse Oximetry 97 97 Oxygen Delivery Me thod Room Air Room Air 01/24/22 16:39 01/24/22 20:01 01/25/22 01:42 Temperature 97.6 F 97.5 F L 97.9 F Pulse Rate [Pulse Oximeter] 102 H 83 94 Respiratory Rate 18 16 16 Blood Pressure [Le ft Arm] 111/74 105/71 103/68 Pulse Oximetry 97 97 97 Oxygen Delivery Me thod Room Air Room Air Room Air Documenting provider has reviewed patient's vital signs: yes Common normals: no apparent distress, oriented x3, healthy appearing, alert and well nourished General appearance: cooperative, well kempt and well developed Orientation/consciousness: Yes awake, Yes oriented to person, Yes oriented to place and Yes oriented to time HENMT: Common normals: normocephalic and external nose normal Head and scalp: normocephalic Nose: external nose normal Eye: General eye: normal appearance of both eyes Neck & C-Spine: Common normals: full ROM and supple General: normal visual inspection Cervical spine: cervical ROM normal Chest: Common normals: inspection of chest normal and palpation of chest normal Chest: symmetrical chest wall rise Resp: Common normals: normal respiratory effort, no retractions, no use of accessory muscles and clear to auscultation bilaterally Effort & inspection: able to speak in complete sentences Auscultation: clear to auscultation bilaterally Cardio: Common normals: regular rate and regular rhythm Rate: regular rate Rhythm: regular rhythm GI: Common normals: Normal to inspection, nondistended, normoactive bowel sounds present and soft to palpation Inspection: normal to inspection Auscultation: normoactive bowel sounds Palpation: soft and tender Rectal Exam - Female: external hemorrhoid(s) (one 2cm possibly thrombosed ) : Common normals: external appearance normal Bimanual exam- vagina & uterus: other (Involuting) Uterus: U/2 and firm Lochia: small and moderate Uterus palpation: uterus tender Back & Pelvis: Common normals: thoracic and lumbar spine normal to inspection and no thoracic nor lumbar tenderness Thoracic spine/upper back: thoracic ROM normal Lumbar spine/lower back: lumbar ROM normal Extremity: Common normals: normal to inspection and full ROM General: normal exam except as noted Neuro: Common normals: oriented x3 Sensorium/orientation: awake, alert, oriented to person, oriented to place and oriented to time Speech: speech normal Psych: Common normals: mental status grossly normal, thought process normal and speech normal Appearance: grossly normal and well kempt Attitude: calm and engaged Activity/motor behavior: appropriate eye contact Speech: normal speech Thought process: normal thought process Thought content: normal thought content Attention/concentration: attention grossly intact Memory/cognition: memory grossly intact Insight: insight good Judgement: judgment good Skin: Common normals: no rashes or lesions noted General skin exam: no rashes or lesions noted OB - DS: Summary Hospital Course Hospital Course: Azul is a 41 year old G9 now P6 at 38w 2d gestation that was admitted to the Center on 01/23/22 for PROM. She had an uncomplicated vaginal delivery. She delivered a viable male infant. She is breast feeding. the patient has done well. Peripartum Data delivery method: Vaginal Laceration description: Perineal - 1st Degree complications: none Gender: Male Discharge Plan: Home Status at Discharge Functional status at discharge: independent ambulation Overall status at discharge: patient is progressing back to baseline Time Spent with Patient Time attestation: Total time spent providing and/or coordinating discharge services: Time spent: Less than 30 minutes Discharge Plan Discharge Disposition: Home, Self-Care Date of Admission: 01/23/22 13:55 Attending Provider on Discharge: Marialuisa Patterson Primary Care Provider: Provider,Not a Local Condition: Stable Anticipated Discharge Date/Time: 01/25/22 15:00 Discharge Medications: New docusate sodium 100 mg Capsule 100 mg PO BID PRN (Reason: Constipation) Qty: 100 0RF ibuprofen 600 mg Tablet 600 mg PO Q6H PRNQty: 30 0RF oxycodone 5 mg Tablet 5 - 10 mg PO Q4H PRNQty: 10 0RF Continued prenat.vits,carlo,rqz-[id number]-[id number] Tablet 1 tab PO QDAY acetaminophen [Tylenol Extra Strength] 500 mg tablet 1,000 mg PO Q6H PRN Discontinued ferrous sulfate 325 mg (65 mg iron) tablet 325 mg PO BID Qty: 60 1RF No Action (DME) blood-glucose meter [Accu-Chek Guide Glucose Meter] Misc See Rx Instructions .ROUTE .MEDSUPPLY Qty: 1 Label Comments: USE TO TEST BLOOD SUGAR FOUR TIMES DAILY Rx Instructions: As directed (DME) Test Strips Misc See Rx Instructions .MEDSUPPLY Qty: 100 3RF Rx Instructions: Test blood sugar 4 times daily. Discharge Orders: Discharge Order (Routine); Ordered 01/25/22 Ordered By: Marialuisa Patterson Patient Education: OB Over the Counter Medication Information, OB Vaginal/Breast Feeding Activity Level: Activity as Tolerated Discharge Diet: Regular Follow Up Appointments: Provider,Not a Local [Primary Care Provider] - Forms: [facility] Info Instructions
[2022-01-25 08:44] VITALS: BP 97/63; PULSE 93; RESP 16; TEMP 36.6; O2SAT 97
== END 2022-01-25 10:30 | disposition home or self-care (01) | DRG 806 ==
LOC: OB OUT 01-28 08:28
PROVIDERS: Obstetrics & Gynecology; Admitting Provider Obstetrics & Gynecology; Visit Provider Obstetrics & Gynecology
DX: O42.02 Full-term premature rupture of membranes, onset of labor within 24 hours of rupture (principal); O87.2 Hemorrhoids in the puerperium; Z37.0 Single live birth; O70.0 First degree perineal laceration during delivery; O24.420 Gestational diabetes mellitus in childbirth, diet controlled; O26.893 Other specified pregnancy related conditions, third trimester; L29.8 Other pruritus; O99.02 Anemia complicating childbirth; D64.9 Anemia, unspecified; Z3A.38 38 weeks gestation of pregnancy
CPT/HCPCS: 01967; 36415; 84112; 85018; 85025; 86850; 86900; 86901; 87635; 99213; A9270; J2370; J3010; J7120

== ENCOUNTER 2022-03-11 07:33 | Outpatient (CLI) | payer OTHER, SELFPAY ==
[2022-03-11 07:40] LABS: Glucose Fasting Check 80 mg/dl (60-115)
[2022-03-11 12:34] LABS: Glucose Fasting 91 mg/dl (70-95)
[2022-03-11 12:35] LABS: Glucose 2 Hour 79 mg/dl (70-155)
== END 2022-03-11 07:34 | disposition home or self-care (01) ==
LOC: NFLDREF 07:33
PROVIDERS: Visit Provider Physician Assistant
DX: Z39.2 Encounter for routine postpartum follow-up (principal)
CPT/HCPCS: 82947; 82950

== ENCOUNTER 2023-06-02 09:46 | Emergency (ER) | payer OTHER, SELFPAY ==
[2023-06-02 10:01] VITALS: BP 116/79; PULSE 92; RESP 18; TEMP 36.6; O2SAT 100; BMI 28.7
--- NOTE | 2023-06-02 10:23 | ED_ITS ---
HPI - General Adult General Date Seen: 06/02/23 Chief complaint: Headache/Migraine Stated complaint: headache Time Seen by Provider: 06/02/23 10:23 History of Present Illness HPI narrative: 42-year-old female with a past medical history of recent delivery, gestational diabetes (now resolved), migraine headaches and tension headaches who presents to the ER today for headache with nausea. She does note that she gets fairly frequent headaches because she is still breast-feeding her [id number] baby and this requires a lot of effort and she will hold her neck and body in odd positions while feeding her faith infant. She has headaches almost every day and well as some sore next. These typically are manage with nvmp-jag-pfxcwjc meds or massages. She has been having headache since yesterday that began gradually. Headache is mostly on the right side of her head and is located behind her right eye and behind right ear. What is different about her current headache is that she is having episodic spikes of pain where she gets a sudden twinge of pain that is typically in the right parietal occipital area. This happens once every 20 minutes or every hour to. No clear pattern to the spikes. No clear position or change or activity. No other symptoms with this headache. Vision is normal. No visual aura. No visual blurriness, diplopia, vision loss. She does have a little bit of photophobia. She is mildly nauseous but not vomiting. Peak she because she has never had these episodes of spiking pain with her headaches before she came to the ER. No other symptoms. No neck pain. No neck stiffness. No fever. No recent head injury. No focal numbness or weakness in her arms or legs. She took ibuprofen 400 mg at home and says that the spikes of gone away now that she is here. She still has a mild headache on the right side of her head. Related Data Home Medications Medication Instructions Recorded Confirmed acetaminophen 500 mg tablet 1,000 mg PO Q6H PRN 09/22/21 08/25/22 (Tylenol Extra Strength) prenat.vits,carlo,lzl-cbqo-brozw 1 tab PO QDAY 09/22/21 08/25/22 blood-glucose meter (Accu-Chek #1 ea 01/21/22 08/25/22 Guide Glucose Meter) Previous Rx's Medication Instructions Recorded Test Strips #100 ea 10/12/21 docusate sodium 100 mg capsule 100 mg PO BID PRN Constipation 01/24/22 #100 caps ibuprofen 600 mg tablet 600 mg PO Q6H PRN #30 tabs 01/24/22 Allergies Allergy/AdvReac Type Severity Reaction Status Date / Time iron Allergy Intermediate Hives Verified 08/25/22 12:35 [facility] Medical History (Updated 06/02/23 @ 12:16 by Kenton Peralta MD) Tonsillitis ?J03.90 - Acute tonsillitis, unspecified (ICD-10) First degree perineal laceration ?O70.0 - First degree perineal laceration during delivery (ICD-10) Generalized anxiety disorder ?F41.1 - Generalized anxiety disorder (ICD-10) (normal spontaneous vaginal delivery) (01/24/22) ?O80 - Encounter for full-term uncomplicated delivery (ICD-10) 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 Works at [employer]. No smoking, drinking alcohol, or recreational drug use. Smoking Status: Never smoker Non-prescribed substance use: denies use Little interest or pleasure in doing things: not at all Feeling down, depressed, or hopeless: not at all Exam Narrative: Exam Narrative: Constitutional: Appears well-developed and well-nourished. Alert. Conversant. N on toxic. HENT: Head: Atraumatic. No depressed skull fracture, Raccoon Eyes, Zafar's sign, or hemotympanum. Face normal. TMs normal Nose: Nose normal. Mouth/Throat: Oral mucosa is clear and moist. no trismus. Pharynx normal. Tonsils symmetric. No tonsillar enlargement, erythema, or exudate. Eyes: Conjunctivae normal. EOM normal. Pupils equal, round, and reactive to light. No scleral icterus. Neck: Normal range of motion. Neck supple. No tracheal deviation present. Cardiovascular: Normal rate, regular rhythm. No gallop. No friction rub. No murmur heard. Symmetric radial artery pulses Pulmonary/Chest: Effort normal. No stridor. No respiratory distress. No wheezes. No rales. No rhonchi . No tenderness. Abdominal: Soft. Bowel sounds normal. No distension. No mass. No tenderness. No rebound. No guarding. Musculoskeletal: RUE: Normal range of motion. No tenderness. No deformity LUE: Normal range of motion. No tenderness. No deformity RLE: Normal range of motion. No edema. No tenderness. No deformity LLE: Normal range of motion. No edema. No tenderness. No deformity Lymph: No cervical adenopathy. Neurological: Mental status normal. Attention normal. Alert and oriented x3. GCS 15. Memory normal. Speech fluent. Cognition normal. Cranial Nerves intact II-XII except I did not formally test gag or visual acuity. EOMI. Palate elevates symmetrically and tongue protrudes in the midline. Strength: 5/5 trapezius on the right and left 5/5 deltoid on the right and left 5/5 biceps on the right and left 5/5 triceps on the right and left 5/5 salesperson men's furnishings on the right and left 5/5 thumb opposition on the right and le ft 5/5 finger abduction on the right and le ft 5/5 hip flexors (L3) on the right and le ft 5/5 quadriceps (L4) on the right and lef t 5/5 tibialis anterior on the right and l eft 5/5 EHL (L5) on the right and left 5/5 gastrocnemius (S1) on the right and left 5/5 hamstring on the right and left Sensation intact to light touch in both upper extremities (C4-T1) Sensation intact to light touch in Both lower extremities (L4-S1). Finger to nose and coordination normal. Gait normal. Skin: Skin is warm and dry. No rash noted. No pallor. Normal capillary refill. Psychiatric: Normal mood. Normal affect. Const: Vital Signs, click to edit/add: Vital Signs - 24 hr 06/02/23 10:01 06/02/23 12:33 Temperature 97.9 F 97.9 F Pulse Rate [Pulse Oximeter] 92 80 Respiratory Rate 18 18 Blood Pressure [Ri t Upper Arm] 116/79 112/73 Pulse Oximetry 100 Oxygen Delivery Me thod Room Air Course Vital Signs Vital signs: Initial Vital Signs Temperature 97.9 F 06/02/23 10:01 Temperature Source Temporal Artery Scan 06/02/23 10:01 Pulse Rate 92 06/02/23 10:01 Respiratory Rate 18 06/02/23 10:01 Blood Pressure 116/79 06/02/23 10:01 Blood Pressure Mean 91 06/02/23 10:01 Pulse Oximetry 100 06/02/23 10:01 Oxygen Delivery Method Room Air 06/02/23 10:01 Vital Signs Temperature 97.9 F 06/02/23 10:01 Pulse Rate 92 06/02/23 10:01 Respiratory Rate 18 06/02/23 10:01 Blood Pressure 116/79 06/02/23 10:01 Pulse Oximetry 100 06/02/23 10:01 Oxygen Delivery Method Room Air 06/02/23 10:01 Temperature 97.9 F 06/02/23 12:33 Pulse Rate 80 06/02/23 12:33 Respiratory Rate 18 06/02/23 12:33 Blood Pressure 112/73 06/02/23 12:33 Pulse Oximetry 100 06/02/23 10:01 Oxygen Delivery Method Room Air 06/02/23 10:01 Medications Administered Medications: Discontinued Medications Generic Name Dose Route Start Last Admin Trade Name Freq PRN Reason Stop Dose Admin Diphenhydramine HCl 12.5 mg 06/02/23 11:11 06/02/23 11:25 Diphenhydramine 50 Mg/Ml Inj IVP 06/02/23 11:12 12.5 mg ONCE ONE Administration Sodium Chloride 1,000 mls @ 1,000 mls/hr 06/02/23 11:15 06/02/23 12:25 0.9 % Sodium Chloride 1000 Ml IV 06/02/23 12:14 Infused .Q1H LAUREN Infusion Ketorolac Tromethamine 15 mg 06/02/23 11:11 06/02/23 11:25 Ketorolac 15 Mg/Ml Inj IVP 06/02/23 11:12 15 mg ONCE ONE Administration Metoclopramide HCl 10 mg 06/02/23 11:11 06/02/23 11:25 Metoclopramide Hcl 5 Mg/Ml Inj IVP 06/02/23 11:12 10 mg ONCE ONE Administration Medical Decision Making MDM Narrative Medical decision making narrative: Ths patient presents with a headache. A broad differential diagnosis was considered including tension, migraine, analgesic rebound, occipital neuralgia, etc. Other less common but serious causes considered included meningitis, encephalitis, subarachnoid bleed, stroke, tumor, etc. The patient has no signs of serious headache etiologies at this point. No advanced imaging is indicated, nor is CT/lumbar puncture for SAH. At this point we feel that the risk of radiation from head CT/CT angiogram and the risk/discomfort of lumbar puncture would outweigh the benefit given the extremely low probability for subarachnoid. Her headache was gradual in onset and is mostly for the most part very mild. It is punctuated by brief twinges of severe sharper pain located in the right parietal region. Exam shows no evidence for any shingles there. By history arms pretty suspicious that this is probably occipital neuralgia. She was not actually having any spasms of pain while she was here in the ER, therefore I do not feel she would likely benefit from occipital nerve block. She did have a mild continuous headache which was treated with migraine cocktail with good improvement. Patients questions were answered and they feel improved after above interventions in ED. Supportive outpatient management is therefore indicated. Headache precautions given for home. Lab Data Labs: Lab Results 06/02/23 Range/Units 10:12 SARS-CoV-2 (PCR) Negative SARS-CoV-2 (Negative) Influenza Type A (PCR) Negative PCR FLU A (Negative) Influenza Type B (PCR) Negative PCR FLU B (Negative) RSV (PCR) Negative PCR RSV (Negative) Discharge Plan Discharge Clinical Impression: Headache Patient Disposition: Home, Self-Care Condition: Stable Instructions: Acute Headache (DC) Additional Instructions: As we discussed, if your headache comes back or you develop any other concerning symptoms, please come back to the ER right away to be rechecked. Use caution this afternoon because the medications he received here in the ER (Benadryl) can cause drowsiness). Avoid dangerous activities were you might fall or get injured. If you have any concerns, come back to the ER right away or see your regular doctor for a checkup. Prescriptions: No Action prenat.vits,carlo,jyx-ubcy-wfenc Tablet 1 tab PO QDAY acetaminophen [Tylenol Extra Strength] 500 mg tablet 1,000 mg PO Q6H PRN (DME) blood-glucose meter [Accu-Chek Guide Glucose Meter] Misc See Rx Instructions .ROUTE .MEDSUPPLY Qty: 1 Patient Comments: USE TO TEST BLOOD SUGAR FOUR TIMES DAILY Rx Instructions: As directed docusate sodium 100 mg Capsule 100 mg PO BID PRN (Reason: Constipation) Qty: 100 0RF ibuprofen 600 mg Tablet 600 mg PO Q6H PRNQty: 30 0RF (DME) Test Strips Misc See Rx Instructions .MEDSUPPLY Qty: 100 3RF Rx Instructions: Test blood sugar 4 times daily. Follow Up/Referrals: Provider,Not a Local [Primary Care Provider] - Stand Alone Forms: MyHealth Info Instructions
[2023-06-02 10:58] LABS: PCR FLU A Negative PCR FLU A (Negative); PCR FLU B Negative PCR FLU B (Negative); PCR RSV Negative PCR RSV (Negative); SARS PCR* Negative SARS-CoV-2 (Negative)
--- OUTSIDE RECORDS SUMMARY | 2023-06-02 11:19 | XMS_ITS | Clinical Summary ---
Author Name Unknown Organization [facility] Address [address] [place] [address] Care Team Providers Care Wafer Fab Technician Name Role Phone Zion Sorto MD Primary Care Provider [phone] Source Comments You are receiving this document as you are listed as the primary care provider,follow-up provider, or the patient has been referred to you for consultation.This is in compliance with the Medicare and[facility] EHR Incentive Program,which states Providers who transition their patient to another setting of careor provider of care or refers their patient to another provider of care shouldprovide summary care record for each transition of care or referral. [facility] Allerg[facility] Active Allergy Reactions Criticality Noted Date Comments Other Other, see comments 10/04/2011 Medications Medication Sig Dispensed Refills Start Date End Date Status pseudoephedrine ([id number]) 120 MG 12 hour release tablet Take 1 Tablet (120 mg) by mouth. Active Active Problems Problem Noted Date Diagnosed Date Diet controlled gestational diabetes mellitus (GDM), antepartum 01/02/2022 , incidental 08/10/2011 Immunizations Name Administration Dates Next Due 4vHPV (Gardasil) 04/07/2009 9vHPV (Gardasil 9) 04/07/2009 Flu Vac (3+ yrs) 12/16/2010,12/06/2009 Td 1982 Tdap 10/05/2011 Family History Medical History Relation Name Comments Cataract Father Diabetes Mother Glaucoma Maternal Uncle Amblyopia/Strabismus Negative Family History Blindness Negative Family History Macular Degeneration Negative Family History Retinal Detachment Negative Family History Relation Name Status Comments Father Mother Maternal Uncle Social History Tobacco Use Types Packs/Day Years Used Date Smoking Tobacco: Never Smokeless Tobacco: Never Alcohol Use Standard Drinks/Week Comments No 0 (1 standard drink = 0.6 oz pur e alcohol) Sex and Gender Information Value Date Recorded Sex Assigned at Not on file Gender Identity Not on file Sexual Orientation Not on file Last Filed Vital Signs Vital Sign Reading Time Taken Comments Blood Pressure 112/68 06/06/2014 2:14 PM CDT Pulse 70 06/06/2014 2:14 PM CDT Temperature 36.9 ??C (98.4 ??F) 06/05/2014 2:01 PM CD T Respiratory Rate 18 06/05/2014 6:08 PM CDT Oxygen Saturation 100% 06/05/2014 6:08 PM CDT Inhaled Oxygen Concentration - - Weight 69.6 kg (153 lb 6.4 oz) 06/06/2014 2:14 P M CDT Height 162.6 cm (5' 4) 06/06/2014 2:14 PM CDT Body Mass Index 26.33 06/06/2014 2:14 PM CDT Plan of Treatment Health Maintenance Due Date Last Done Comments Cervical Cancer Screening Due 1982 Hep C Screening (Preventive Services) 1982 HIV Screening (Preventive Services) 1998 Adult Preventive Visit 2000 HepB (1) 2001 HPV Vaccine (2 - 3-dose series) 05/05/2009 04/07/2009, 04/07/2009 DTaP/Tdap/Td (2 - Tdap) 10/04/2021 10/05/19, 1982 COVID-19 Vaccine (2022-2 4 season) 2022 Influenza (#1) 2022 12/16/2010, 12/06/2009 Zoster/Shingles (1 of 2) 2032 HepA Aged Out No longer eligi ble based on patient's age to complete this topic Hib Aged Out No longer eligi ble based on patient's age to complete this topic IPV (Polio) Aged Out No longer eligi ble based on patient's age to complete this topic MCV4 Aged Out No longer eligi ble based on patient's age to complete this topic Pneumococcal Aged Out No longer eligi ble based on patient's age to complete this topic Care Teams Wafer Fab Technician Relationship Specialty [place] [address] [place] [address] PCP - General 10/15/15
--- OUTSIDE RECORDS SUMMARY | 2023-06-02 11:20 | XMS_ITS | Encounter Summary ---
Author Name Unknown Organization [place] Address [address] [facility] [place] [address] Care Team Providers Care Barrel Bung Remover And Dumper Name Role Phone Bebeto Roth MD Unavailable [phone] Astrid Rios PA-C Unavailable [phone] Keri Elias MD Primary Care Provider Unavailable Francisco Metz MD Primary Care Provider Francisco Metz MD Unavailable [phone] Kenton Katz MD Unavailable Henrietta vaKaren Foster DO Primary Care Provider [phone] Kenton Katz MD Unavailable Henrietta vaKaren Foster DO Unavailable [phone] Reason for Visit * Reason Onset Date Comments No Show 03/27/2017 RTN No Show #3 Encounter Details Date Type Department Care Team (Late st Contact Info) Description 03/27/2017 Telephone [facility] [address] [place] [address], [address] [place] [address] Keri Elias MD XXX RETIRED XXX 03/10/2022 CONFIRMED No Show (RTN No Show #3) Social History Tobacco Use Types Packs/Day Years Used Date Smoking Tobacco: Never Smokeless Tobacco: Never Alcohol Use Standard Drinks/Week Comments No 0 (1 standard drink = 0.6 oz pur e alcohol) Sex and Gender Information Value Date Recorded Sex Assigned at Not on file Gender Identity Not on file Sexual Orientation Not on file documented as of this encounter Miscellaneous Notes * Telephone Encounter - Ty, Collin - 03/27/2017 9:57 AM CST This is just an FYI that the patient has no showed 3 appointments. When patient calls back, they will be scheduled on the virtual schedule to meet with you. TS DOCTOR documented in this encounter Plan of Treatment Not on file documented as of this encounter Visit Diagnoses Not on filedocumented in this encounter Care Teams Barrel Bung Remover And Dumper Relationship Specialty Start Date End Date Keri Elias MD [facility] [address] PCP - General Family Practice 03/12/15 11/13/18 Francisco Metz MD [address] [place] [address] PCP - General Family Practice 11/14/18 04/02/20 Karen Veliz DO [address] [place] [address] PCP - General Family Medicine 04/03/20 Bebeto Roth MD [address] [place] [address] Orthopedics 07/09/14 Astrid Rios PA-C [address] [place] [address] Physician Second Grade Teacher Physician Second Grade Teacher - Surgical 07/09/14 Francisco Metz MD [place] [address] [address] [address] Assigned PCP 07/04/19 02/01/20 Kenton Katz MD NO INFO AVAILABLE Assigned PCP 02/02/20 08/27/20 Kenton Katz MD NO INFO AVAILABLE Assigned Endocrinology Provider 08/28/20 07/23/21 Karen Veliz DO [address] [place] [address] Assigned PCP 08/28/20 01/14/22 documented as of this encounter
--- OUTSIDE RECORDS SUMMARY | 2023-06-02 11:20 | XMS_ITS | Encounter Summary ---
Author Name Unknown Organization [place] [facility] Address [address] [facility] [place] [address] Care Team Providers Care Supervisor Coil Winding Name Role Phone Andreas Patel MD Primary Care Provider [phone] Caitlin Ballesteros MD Primary Care Provider [phone] Lisa Dewitt DO Primary Care Provider [phone] Bebeto Roth MD Unavailable [phone] Astrid Rios PA-C Unavailable [phone] [facility] Primary Car e Provider Keri Elias MD Primary Care Provider Unavailable Francisco Metz MD Primary Care Provider Francisco Metz MD Unavailable [phone] Kenton Katz MD Unavailable Henrietta Karen Preston DO Primary Care Provider [phone] Kenton Katz MD Unavailable Henrietta Karen Preston DO Unavailable [phone] Encounter Details Date Type Department Care Team (Late st Contact Info) Description 09/22/2011 Office Visit-[facility] Social History Tobacco Use Types Packs/Day Years Used Date Smoking Tobacco: Never Alcohol Use Standard Drinks/Week Comments No 0 (1 standard drink = 0.6 oz pur e alcohol) Comments Yes Sex and Gender Information Value Date Recorded Sex Assigned at Not on file Gender Identity Not on file Sexual Orientation Not on file documented as of this encounter Progress Notes * [facility] ULTRASOUND - 09/22/2011 2:00 PM CDT Jewel Grinder: PATRICIO, ULTRASOUND Status: Amended, Final Encounter: 2011-09-22 14:00:00.000 Type: FM Ultrasound Active Problems Acne Vulgaris (706.1) Anxiety (300.00) Care Coordinated By; Tier 0 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 US Biophysical Profile Report Primary MD: Dr Patel /Dr Ballesteros / Dr Ontiveros Lacquer Shader: Latesha Harley Indications: pt. not feeling baby move. Dr. Franks asked for a BPP Machine ExaqtWorld 5 Pro EGA 39wks by Previous US [...] By: Payton Franks ; 09/22/2011 3:03 PM TEST BORE HELPER. Signature Signed By: Latesha Harley ; 09/22/2011 2:52 PM TEST BORE HELPER. Signed By: Payton Franks M.D.; 09/22/2011 3:03 PM TEST BORE HELPER; Author. Signed By: Aditi Boyer M.D.; 09/26/2011 2:03 PM TEST BORE HELPER. BORE HELPER * [facility] ULTRASOUND - 09/22/2011 1:20 PM CDT Jewel Grinder: PATRICIO, ULTRASOUND Status: Amended, Final Encounter: 2011-09-22 13:20:00.000 Type: FM Ultrasound Active Problems Acne Vulgaris (706.1) Anxiety (300.00) Care Coordinated By; Tier 0 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 US 2nd & 3rd Trimester Ultrasound Report Primary MD: Dr Patel / Dr Ontiveros /Dr Ballesteros Lacquer Shader: Latesha Harley Indications: recheck growth Machine: ExaqtWorld 5 Pro FHR: 143 bpm Fluid:Normal TJ: [...] By: August Ontiveros ; 09/26/2011 2:25 PM TEST BORE HELPER. Signature Signed By: Latesha Harley ; 09/22/2011 2:41 PM TEST BORE HELPER. Signed By: August Ontiveros M.D.; 09/26/2011 2:26 PM TEST BORE HELPER; Author. BORE HELPER documented in this encounter Plan of Treatment Not on file documented as of this encounter Visit Diagnoses Not on filedocumented in this encounter Care Teams Supervisor Coil Winding Relationship Specialty Start Date End Date Andreas Patel MD PCP - General 10/05/11 10/07/11 Caitlin Ballesteros MD PCP - General 10/08/11 08/11/13 Lisa Dewitt DO [facility] [address] [place] [address] PCP - General 08/12/13 07/15/14 [facility] [address] [place] [address] PCP - General 07/16/14 03/11/15 Keri Elias MD [address] [place] [address] PCP - General Family Practice 03/12/15 11/13/18 Francisco Metz MD [address] [place] [address] PCP - General Family Practice 11/14/18 04/02/20 Karen Veliz DO [address] [place] [address] PCP - General Family Medicine 04/03/20 Bebeto Roth MD [facility] [place] [address] Orthopedics 07/09/14 Astrid Rios PA-C [address] [place] [address] Physician Flight Steward Physician Flight Steward - Surgical 07/09/14 Francisco Metz MD [place] [address] [address] [address] Assigned PCP 07/04/19 02/01/20 Kenton Katz MD NO INFO AVAILABLE Assigned PCP 02/02/20 08/27/20 Kenton Katz MD NO INFO AVAILABLE Assigned Endocrinology Provider 08/28/20 07/23/21 Karen Veliz DO [address] [place] [address] Assigned PCP 08/28/20 01/14/22 documented as of this encounter
--- OUTSIDE RECORDS SUMMARY | 2023-06-02 11:20 | XMS_ITS | Encounter Summary ---
Author Name Unknown Organization [place] Address [address] [facility] [place] [address] Care Team Providers Care Buffing Machine Operator Semiautomatic Name Role Phone Bebeto Roth MD Unavailable [phone] Astrid Rios PA-C Unavailable [phone] Francisco Metz MD Primary Care Provider Francisco Metz MD Unavailable [phone] Kenton Katz MD Unavailable Henrietta vailable Karen Veliz DO Primary Care Provider + [phone] Kenton Katz MD Unavailable Henrietta vailable Karen Veliz DO Unavailable [phone] Encounter Details Date Type Department Care Team (Late st Contact Info) Description 01/22/2020 MyC Medical Advice M [address] [address] Kristina Denise Social History Tobacco Use Types Packs/Day Years Used Date Smoking Tobacco: Never Smokeless Tobacco: Never Alcohol Use Standard Drinks/Week Comments No 0 (1 standard drink = 0.6 oz pur e alcohol) PHQ-2 Answer Date Recorded PHQ-2 Score 0 02/20/2018 Comments Yes Sex and Gender Information Value Date Recorded Sex Assigned at Not on file Gender Identity Not on file Sexual Orientation Not on file COVID-19 Exposure Response Date Recorded In the last month, have you been in contact with someone who was confirmed or suspected to have Coronavirus / COVID-19? Unable to assess 01/23/2020 7:04 AM PHOTORESIST PRINTER documented as of this encounter Plan of Treatment Not on file documented as of this encounter Visit Diagnoses Not on filedocumented in this encounter Care Teams Buffing Machine Operator Semiautomatic Relationship Specialty Start Date End Date Francisco Metz MD [address] [place] [address] PCP - General Family Practice 11/14/18 04/02/20 Karen Veliz DO [address] [place] [address] PCP - General Family Medicine 04/03/20 Bebeto Roth MD [address] [place] [address] Orthopedics 07/09/14 Astrid Rios PA-C [address] [place] [address] Physician Harness Placer Physician Harness Placer - Surgical 07/09/14 Francisco Metz MD [place] [address] ANGELLA LUCIO [address] Assigned PCP 07/04/19 02/01/20 Kenton Katz MD NO INFO AVAILABLE Assigned PCP 02/02/20 08/27/20 Kenton Katz MD NO INFO AVAILABLE Assigned Endocrinology Provider 08/28/20 07/23/21 Karen Veliz DO [address], [place] [address] Assigned PCP 08/28/20 01/14/22 documented as of this encounter
--- OUTSIDE RECORDS SUMMARY | 2023-06-02 11:20 | XMS_ITS | Encounter Summary ---
Author Name Unknown Organization [place] Address [address] [place] [address] Care Team Providers Care Apple Peeler Operator Name Role Phone Andreas Patel MD Primary Care Provider [phone] Caitlin Ballesteros MD Primary Care Provider [phone] Lisa Dewitt DO Primary Care Provider [phone] Bebeto Roth MD Unavailable [phone] Astrid Rios PA-C Unavailable [phone] [facility] Primary Car e Provider Keri Elias MD Primary Care Provider Unavailable Francisco Metz MD Primary Care Provider rFancisco Metz MD Unavailable [phone] Kenton Katz MD Unavailable Henrietta Karen Preston DO Primary Care Provider + [phone] Kenton Katz MD Unavailable Henrietta Karen Preston DO Unavailable [phone] Encounter Details Date Type Department Care Team (Late st Contact Info) Description 09/26/2011 Office Visit-[facility] INTERFACE [facility] DEPT Social History [...] of this encounter Progress Notes * SY UMP ULTRASOUND - 09/26/2011 2:07 PM CDT Forest Fire Lookout: ADOLFO CURRY Status: Unsigned Encounter: 2011-09-26 14:07:00.000 [...] on filedocumented in this encounter Care Teams Apple Peeler Operator Relationship Specialty Start Date End Date Andreas Patel MD PCP - General 10/05/11 10/07/11 Caitlin Ballesteros MD PCP - General 10/08/11 08/11/13 Lisa Dewitt DO [facility] [address] [place] [address] PCP - General 08/12/13 07/15/14 [facility] [address] [place] [address] PCP - General 07/16/14 03/11/15 Keri Elias MD [address] [place] [address] PCP - General Family Practice 03/12/15 11/13/18 Francisco Metz MD [address] [place] [address] PCP - General Family Practice 11/14/18 04/02/20 Karen Veliz DO [address] [place] [address] PCP - General Family Medicine 04/03/20 Bebeto Roth MD [address] [place] [address] Orthopedics 07/09/14 Astrid Rios PA-C [facility] [address] [address] Physician Parking Meter Attendant Physician Parking Meter Attendant - Surgical 07/09/14 Francisco Metz MD [place] [address] ANGELLA LUCIO [address] Assigned PCP 07/04/19 02/01/20 Kenton Katz MD NO INFO AVAILABLE Assigned PCP 02/02/20 08/27/20 Kenton Katz MD NO INFO AVAILABLE Assigned Endocrinology Provider 08/28/20 07/23/21 Karen Veliz DO 2019 [place] [address] Assigned PCP 08/28/20 01/14/22 documented as of this encounter
--- OUTSIDE RECORDS SUMMARY | 2023-06-02 11:20 | XMS_ITS | Encounter Summary ---
Author Name Unknown Organization [place] Address [address] [facility] [place] [address] Care Team Providers Care Sculpture Instructor Name Role Phone Bebeto Roth MD Unavailable [phone] Astrid Rios PA-C Unavailable [phone] Keri Elias MD Primary Care Provider Unavailable Francisco Metz MD Primary Care Provider Francisco Metz MD Unavailable [phone] Kenton Katz MD Unavailable Henrietta vaKaren Foster DO Primary Care Provider [phone] Kenton Katz MD Unavailable Henrietta vaKaren Foster DO Unavailable [phone] Reason for Visit * Reason Onset Date Comments Outreach 03/13/2017 Rtn no show #2 Encounter Details Date Type Department Care Team (Late st Contact Info) Description 03/13/2017 Telephone [facility] [address] [place] [address], [address] [place] [address] Keri Elias MD XXX RETIRED XXX 03/10/2022 CONFIRMED Outreach (Rtn no show #2 ) Social History Tobacco Use Types Packs/Day Years [...] encounter Miscellaneous Notes * Telephone Encounter - Yasmine Bailey - 03/13/2017 8:32 AM CST Patient has no showed 2 scheduled appointments. Please use following script to explain no show policy to patient: We see that you have missed some of your recently scheduled appointments. At [facility] we have a new no show policy, where if you miss too many appointments within 1 year, we may not be able to continue to schedule you. If you are unable to make your scheduled appointments, please call the clinic to cancel prior to your appointment time. LATORY COMPLIANCE SPECIALIST documented in this encounter Plan of Treatment Not on file documented as of this encounter Visit Diagnoses Not on filedocumented in this encounter Care Teams Sculpture Instructor Relationship Specialty Start Date End Date Keri Elias MD [address] [place] [address] PCP - General Family Practice 03/12/15 11/13/18 Francisco Metz MD [address] [place] [address] PCP - General Family Practice 11/14/18 04/02/20 Karen Veliz DO 2019 [place] [address] PCP - General Family Medicine 04/03/20 Bebeto Roth MD [address] [place] [address] Orthopedics 07/09/14 Astrid Rios PA-C [address] [place] [address] Physician Installer Interior Assemblies Physician Installer Interior Assemblies - Surgical 07/09/14 Francisco Metz MD [place] [address] ANGELLA LUCIO [address] Assigned PCP 07/04/19 02/01/20 Kenton Katz MD NO INFO AVAILABLE Assigned PCP 02/02/20 08/27/20 Kenton Katz MD NO INFO AVAILABLE Assigned Endocrinology Provider 08/28/20 07/23/21 Karen Veliz DO 2019 [place] [address] Assigned PCP 08/28/20 01/14/22 documented as of this encounter
--- OUTSIDE RECORDS SUMMARY | 2023-06-02 11:20 | XMS_ITS | Referral Summary ---
Author Name Unknown Organization [place] Address [address] [facility] [place] [address] Care Team Providers Care Washer Blanket Name Role Phone Bebeto Roth MD Unavailable [phone] Astrid Rios PA-C Unavailable [phone] Karen Veliz DO Primary Care Provider [phone] Allergies Active Allergy Reactions Criticality Noted Date Comments Seasonal Allergies 10/04/2011 Medications Medication Sig Dispensed Refills Start Date End Date Status fluticasone (FLONASE) 50 MCG/ACT sprayIndications:Envi ronmental allergies [place] 1-2 sprays into both nostrils daily 16 g 3 07/05/2017 Active pseudoePHEDrine (SUDAFED) 120 MG 12 hr tablet Take 120 mg by mouth every morning Active Vit-Fe Fumarate-FA ( MULTIVITAMIN W/IRON) 27-0.8 MG tabletIndications:Pre gnancy test positive Take 1 tablet by mouth daily 90 tablet 3 01/08/2019 Active ondansetron (ZOFRAN) 4 MG tabletIndications:Pre gnancy test positive Take 1-2 tablets (4-8 mg) by mouth every 8 hours as needed for nausea 60 tablet 3 01/08/2019 Active ferrous sulfate (FEROSUL) 325 (65 Fe) MG tabletIndications:Iro n deficiency anemia, unspecified iron deficiency anemia type Take 1 tablet (325 mg) by mouth daily (with breakfast) 60 tablet 1 01/09/2019 Active ketorolac (TORADOL) 30 MG/ML injection Inject 30 mg into the vein every 6 hours as needed for moderate pain Active cyclobenzaprine (FLEXERIL) 10 MG tablet TK 1 T PO TID PRN 08/30/2019 Active Active Problems Patient Care Coordination No te Formatting of this note migh t be different from the original. [email or web address] Problem Noted Date Diagnosed Date S/P spinal fusion 10/23/2017 Frequent UTI 12/14/2016 Anemia, iron deficiency 12/14/2016 Pain in thoracic spine 08/07/2014 Other orthopedic aftercare(V54.89) 08/07/2014 Grief 03/13/2014 Overview: Pt's boyfriend of heroin overdose day after 2013. 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 History of - first baby with PPROM. Next 2 births at term. Declined IM Progesterone 2. Congenital scoliosis 3. Varicella non-immune. Plan to vaccinate post-. 4. 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 Eva Hogan ([phone]) CARE PLAN ?? Consults: ?? Ultrasounds: 08/03/16 (dating), 10/19/16 (anatomy survey) DELIVERY PLAN ?? Planned mode of delivery: ?? Delivery timing: ?? Notifications during labor: Page OB providers above ?? Post Contraception: GBS: Depo-Provera contraceptive status 04/03/2012 04/04/2013 Acne vulgaris 12/19/2011 04/12/2017 in multigravida 10/05/2011 Overview: Diagnosis updated by automated process. Provider to review and confirm. Immunizations Name Administration Dates Next Due HPV 04/07/2009 Influenza (IIV3) PF 12/16/2010,12/06/2009 TDAP Vaccine (Adacel) 10/05/2011 Td (Adult), Adsorbed 1982 Social History Tobacco Use Types Packs/Day Years Used Date Smoking Tobacco: Never Smokeless Tobacco: Never Tobacco Cessation:Counseling Given: No Alcohol Use Standard Drinks/Week Comments No 0 (1 standard drink = 0.6 oz pur e alcohol) PHQ-2 Answer Date Recorded PHQ-2 Score 0 02/20/2018 Adolescent Education Answer Date Record ed Getting School Help Needed Not on file 11/28 Sex and Gender Information Value Date Recorded Sex Assigned at Not on file Gender Identity Not on file Sexual Orientation Not on file Last Filed Vital Signs Vital Sign Reading Time Taken Comments Blood Pressure 94/56 02/18/2019 7:21 PM PRESS TENDER SMOKE SIGNAL Pulse 56 02/18/2019 7:21 PM PRESS TENDER SMOKE SIGNAL Temperature 36.9 ??C (98.4 ??F) 02/18/2019 3:50 PM CS T Respiratory Rate 16 02/18/2019 7:21 PM PRESS TENDER SMOKE SIGNAL Oxygen Saturation 94% 02/18/2019 7:21 PM PRESS TENDER SMOKE SIGNAL Inhaled Oxygen Concentration - - Weight 73.5 kg (162 lb) 02/18/2019 3:50 PM PRESS TENDER SMOKE SIGNAL Height 160 cm (5' 3) 04/18/2018 8:42 AM PRESS TENDER SMOKE SIGNAL Body Mass Index 28.7 04/18/2018 8:42 AM PRESS TENDER SMOKE SIGNAL Plan of Treatment Not on file Medical Devices Implanted Type Area Neonatal Specialist Device Identifier Shelf Expiration Date Model / Serial / Lot Graft Bone Crush Canc 30ml [id number] Implanted:Qty : 1 on 10/23/2017 by Bebeto Roth MD at [facility] Bone/Tissu e/Biologic N/A: Spine Thoracic MUSCULOSKELETAL HANSEN 08/28/2020 [id number] / [id number] / Graft Bone Crush Canc 30ml [id number] Implanted:Qty : 1 on 10/23/2017 by Bebeto Roth MD at [facility] Bone/Tissu e/Biologic N/A: Spine Thoracic MUSCULOSKELETAL HANSEN 08/07/2020 [id number] / [id number] / Imp Scr Medt 5.5/6.0mm Solera 5.5x40mm Ma [id number] Implanted:Qty : 9 on 10/23/2017 by Bebeto Roth MD at [facility] Metallic Hardware/A nchor N/A: Spine Thoracic [employer] [id number] / / [id number] Imp Scr Medt 5.5/6.0mm Solera 5.5x35mm Ma [id number] Implanted:Qty : 4 on 10/23/2017 by Bebeto Roth MD at [facility] Metallic Hardware/A nchor N/A: Spine Thoracic [employer] [id number] / / Imp Scr Set Medt Solera Break Off 5.5mm Ti [id number] Implanted:Qty : 13 on 10/23/2017 by Bebeto Roth MD at [facility] Metallic Hardware/A nchor N/A: Spine Thoracic [employer] [id number] / / [id number] Imp Abhijeet Medt Solera Lined 5.4d478wi Chr [id number] Implanted:Qty : 1 on 10/23/2017 by Bebeto Roth MD at [facility] Metallic Hardware/A nchor N/A: Spine Thoracic [employer] [id number] / / [id number] Imp Scr Set Jairon Medt 5.5 To 5.5mm [id number] Implanted:Qty : 2 on 10/23/2017 by Bebeto Roth MD at [facility] Metallic Hardware/A nchor N/A: Spine Thoracic [employer] [id number] / / Imp Scr Danek Legacy Breakoff Set 5.5mm Ti [id number] Implanted:Qty : 5 on 10/23/2017 by Bebeto Roth MD at [facility] Metallic Hardware/A nchor N/A: Spine Thoracic [employer]-DANEK [id number] / / Axial Jairon Implanted:Qty : 2 on 10/23/2017 by Bebeto Roth MD at [facility] N/A: Spine Thoracic [employer]-DANE[employer] [id number] / / Explanted Type Area Neonatal Specialist Device Identifier Shelf Expiration Date Model / Serial / Lot 5 Set Screws Explanted:Qty: 1 on 10/23/2017 at [facility] N/A: Spine Thoracic Advance Directives For more information, please contact: [phone] * Full Code (Latest Code Status on File) Date Activated Date Inactivated Comments 10/25/2017 10:23 AM 10/27/2017 8:35 AM * Full Code Date Activated Date Inactivated Comments 10/23/2017 2:18 PM 10/25/2017 10:23 AM * Full Code Date Activated Date Inactivated Comments 03/05/2017 11:49 AM 10/23/2017 2:18 PM Care Teams Washer Blanket Relationship Specialty Start Date End Date Karen Veliz DO [address] [place] [address] PCP - General Family Medicine 04/03/20 Bebeto Roth MD [address] [place] [address] Orthopedics 07/09/14 Astrid Rios PA-C [address] [place] [address] Physician Full Stack Software Engineer Physician Full Stack Software Engineer - Surgical 07/09/14
--- OUTSIDE RECORDS SUMMARY | 2023-06-02 11:20 | XMS_ITS | Encounter Summary ---
Author Name Unknown Organization [place] Address [address] [facility] [place] [address] Care Team Providers Care Corn Picker Name Role Phone Andreas Patel MD Primary Care Provider [phone] Caitlin Ballesteros MD Primary Care Provider [phone] Lisa Dewitt DO Primary Care Provider [phone] Bebeto Roth MD Unavailable [phone] Astrid Rios PA-C Unavailable [phone] [facility] Primary Car e Provider Keri Elias MD Primary Care Provider Unavailable Francisco Metz MD Primary Care Provider Francisco Metz MD Unavailable [phone] Kenton Katz MD Unavailable Henrietta Karen Preston DO Primary Care Provider [phone] Kenton Katz MD Unavailable Henrietta Karen Preston DO Unavailable [phone] Encounter Details Date Type Department Care Team (Late st Contact Info) Description 07/14/2011 Office Visit-[facility] INTERFACE UMP DEPT Social History Tobacco Use Types Packs/Day Years Used Date Smoking Tobacco: Never Assessed Sex and Gender Information Value Date Recorded Sex Assigned at Not on file Gender Identity Not on file Sexual Orientation Not on file documented as of this encounter Progress Notes * SY UMP ULTRASOUND - 07/14/2011 9:10 AM CDT Planning Aide: PATRICIO, ULTRASOUND Status: Amended, Final Encounter: 2011-07-14 09:10:00.000 Type: FM Ultrasound Active Problems Acne Vulgaris (706.1) Anxiety (300.00) Care Coordinated By; Tier 0 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 US 2nd & 3rd Trimester Ultrasound Report Primary MD: Dr Navarro Foster Care Worker: Latesha Harley Indications: size less than dates P: 2 Machine: Quartix 5 Pro FHR: 143 bpm Fluid:Normal TJ: [...] By: August Ontiveros ; 07/19/2011 9:17 AM FLIGHT COMMUNICATIONS OFFICER. Signature Signed By: Latesha Harley ; 07/14/2011 9:45 AM FLIGHT COMMUNICATIONS OFFICER. Signed By: August Ontiveros M.D.; 07/19/2011 9:17 AM FLIGHT COMMUNICATIONS OFFICER; Author. HT COMMUNICATIONS OFFICER documented in this encounter Plan of Treatment Not on file documented as of this encounter Visit Diagnoses Not on filedocumented in this encounter Care Teams Corn Picker Relationship Specialty Start Date End Date Andreas Patel MD PCP - General 10/05/11 10/07/11 Caitlin Ballesteros MD PCP - General 10/08/11 08/11/13 Lisa Dewitt DO [facility] [address] [place] [address] PCP - General 08/12/13 07/15/14 [facility] [address] [place] [address] PCP - General 07/16/14 03/11/15 Keri Elias MD [address] [place] [address] PCP - General Family Practice 03/12/15 11/13/18 Francisco Metz MD [address] [place] [address] PCP - General Family Practice 11/14/18 04/02/20 Kraen Veliz DO [address] [place] [address] PCP - General Family Medicine 04/03/20 Bebeto Roth MD [facility] [address] [address] Orthopedics 07/09/14 Astrid Rios PA-C [address] [address] Physician Hash Slinger Physician Hash Slinger - Surgical 07/09/14 Francisco Metz MD [place] [address] ANGELLA LUCIO [id number] [phone] Assigned PCP 07/04/19 02/01/20 Kenton Katz MD NO INFO AVAILABLE Assigned PCP 02/02/20 08/27/20 Kenton Katz MD NO INFO AVAILABLE Assigned Endocrinology Provider 08/28/20 07/23/21 Karen Veliz DO 2019 [place] [address] Assigned PCP 08/28/20 01/14/22 documented as of this encounter
--- OUTSIDE RECORDS SUMMARY | 2023-06-02 11:20 | XMS_ITS | Encounter Summary ---
Author Name Unknown Organization [place] Address [address] [facility] [place] [address] Care Team Providers Care Swing Manager Name Role Phone Andreas Patel MD Primary Care Provider [phone] Caitlin Ballesteros MD Primary Care Provider [phone] Lisa Dewitt DO Primary Care Provider [phone] Bebeto Roth MD Unavailable [phone] Astrid Rios PA-C Unavailable [facility] Primary Car e Provider Keri Elias MD Primary Care Provider Unavailable Francisco Metz MD Primary Care Provider Francisco Metz MD Unavailable [phone] Kenton Katz MD Unavailable Henrietta Karen Preston DO Primary Care Provider [phone] Kenton Katz MD Unavailable Henrietta Karen Preston DO Unavailable [phone] Encounter Details Date Type Department Care Team (Late st Contact Info) Description 10/06/2011 Office Visit-[facility] INTERFACE P DEPT Andreas Patel MD [address] [place] [address] Social History Tobacco Use Types Packs/Day Years Used Date Smoking Tobacco: Never Alcohol Use Standard Drinks/Week Comments No 0 (1 standard drink = 0.6 oz pur e alcohol) Sex and Gender Information Value Date Recorded Sex Assigned at Not on file Gender Identity Not on file Sexual Orientation Not on file documented as of this encounter Progress Notes * Andreas Patel - 10/06/2011 1:20 PM CDT General Counsel: Andreas Patel Status: Signed Encounter: 2011-10-06 13:20:00.000 Type: FM Visit Reason For Visit This 31 year patient presents for {{{[ ]}}}[ preventive health visit ][ diabetes visit ]. {{{Food Processing Plant Manager used this visit; [ Hmong ][ Luxembourger ][ Pashto ][ Oromo ][ Nepalese ][ Other: ]}}} {{{Name of director of enterprise strategy [ ]. Food Processing Plant Manager's Phone number: [ [phone] ][ [phone] ][ [phone] ][ 361 ]-[ ]-[ ] }}} {{{Minor without Guardian. Verbal consent obtained from [ Mother ] [ Father ] [ ] by administrative assistant front desk staff [ ]. Contact number: [ [phone] ] [ [phone] ] [ [phone] ][ [phone] ] [ ] }}} {{{PHQ2 completed and [...] BIOPHYS PROFILE W/O NST Principal Result Food Processing Plant Manager: OSWALDO ARRIAGA PROFESSOR&& Biophysical profile. 09/30/11. [...] and agree with the findings. Performed at: [facility]. Plan {{{Patient participated in and [ agrees ][ disagrees ] with today's plan.}}} {{{Patient's family participated in and [ agree ][ disagree ] with today's plan.}}} {{{Patient and family participated in and [ agree ][ disagree ] with today's plan.}}}. Signature Signed By: Andreas Patel M.D.,Resident; 10/10/2011 11:03 AM PUMP AND STILL OPERATOR. documented in this encounter Plan of Treatment Not on file documented as of this encounter Visit Diagnoses Not on filedocumented in this encounter Care Teams Swing Manager Relationship Specialty Start Date End Date Andreas Patel MD PCP - General 10/05/11 10/07/11 Caitlin Ballesteros MD PCP - General 10/08/11 08/11/13 Lisa Dewitt DO [facility] [address] [place] [address] PCP - General 08/12/13 07/15/14 [facility] [address] [place] [address] PCP - General 07/16/14 03/11/15 Keri Elias MD [address] [place] [address] PCP - General Family Practice 03/12/15 11/13/18 Francisco Metz MD [address] [place] [address] PCP - General Family Practice 11/14/18 04/02/20 Karen Veliz DO [address] [place] [address] PCP - General Family Medicine 04/03/20 Bebeto Roth MD [facility] [address] [address] Orthopedics 07/09/14 Astrid Rios PA-C [address] [place] [address] Physician Transport Corps Officer Physician Transport Corps Officer - Surgical 07/09/14 Francisco Metz MD [facility] [address] [place] [address] [place] [address] Assigned PCP 07/04/19 02/01/20 Kenton Katz MD NO INFO AVAILABLE Assigned PCP 02/02/20 08/27/20 Kenton Katz MD NO INFO AVAILABLE Assigned Endocrinology Provider 08/28/20 07/23/21 Karen Veliz DO [address] [place] [address] Assigned PCP 08/28/20 01/14/22 documented as of this encounter
--- OUTSIDE RECORDS SUMMARY | 2023-06-02 11:20 | XMS_ITS | Encounter Summary ---
Author Name Unknown Organization [place] Address [address] [facility] [place] [address] Care Team Providers Care Screw Machine Setter Name Role Phone Andreas Patel MD Primary Care Provider [phone] Caitlin Ballesteros MD Primary Care Provider [phone] Lisa Dewitt DO Primary Care Provider [phone] Bebeto Roth MD Unavailable [phone] Astrid Rios PA-C Unavailable [phone] [facility] Primary Car e Provider Keri Elias MD Primary Care Provider Unavailable Francisco Metz MD Primary Care Provider Francisco Metz MD Unavailable [phone] Kenton Katz MD Unavailable Henrietta Karen Preston DO Primary Care Provider + [phone] Kenton Katz MD Unavailable Henrietta Karen Preston DO Unavailable [phone] Encounter Details Date Type Department Care Team (Late st Contact Info) Description 09/01/2011 Office Visit-[facility] INTERFACE UMP DEPT Social History Tobacco Use Types Packs/Day Years Used Date Smoking Tobacco: Never Assessed Sex and Gender Information Value Date Recorded Sex Assigned at Not on file Gender Identity Not on file Sexual Orientation Not on file documented as of this encounter Progress Notes * SY UMP ULTRASOUND - 09/01/2011 2:00 PM CDT Aircraft Instrument Engineer: PATRICIO, ULTRASOUND Status: Amended, Final Encounter: 2011-09-01 14:00:00.000 Type: FM Ultrasound Active Problems Acne Vulgaris (706.1) Anxiety (300.00) Care Coordinated By; Tier 0 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 US 2nd & 3rd Trimester Ultrasound Report Primary MD: Dr Ballesteros Baker Laboratory: Latesha Harley Indications: Growth on prev. u/s = 5% P: 2 Machine: Arkami 5 Pro FHR: 152 bpm Fluid:Normal TJ: [...] By: August Ontiveros ; 09/07/2011 2:51 PM MARINE GEAR KEEPER. Signature Signed By: Latesha Harley ; 09/01/2011 2:51 PM MARINE GEAR KEEPER. Signed By: August Ontiveros M.D.; 09/07/2011 2:51 PM MARINE GEAR KEEPER; Author. NE GEAR KEEPER documented in this encounter Plan of Treatment Not on file documented as of this encounter Visit Diagnoses Not on filedocumented in this encounter Care Teams Screw Machine Setter Relationship Specialty Start Date End Date Andreas Patel MD PCP - General 10/05/11 10/07/11 Caitlin Ballesteros MD PCP - General 10/08/11 08/11/13 Lisa Dewitt DO [facility] [address] [place] [address] PCP - General 08/12/13 07/15/14 [facility] [address] [place] [address] PCP - General 07/16/14 03/11/15 Keri Elias MD [address] [place] [address] PCP - General Family Practice 03/12/15 11/13/18 Francisco Metz MD [address] [place] [address] PCP - General Family Practice 11/14/18 04/02/20 Karen Veliz DO [address] [place] [address] PCP - General Family Medicine 04/03/20 Bebeto Roth MD [facility] [place] [address] Orthopedics 07/09/14 Astrid Rios PA-C [facility] [place] [address] Physician Sports Book Writer Physician Sports Book Writer - Surgical 07/09/14 Francisco Metz MD [address] [address] Assigned PCP 07/04/19 02/01/20 Kenton Katz MD NO INFO AVAILABLE Assigned PCP 02/02/20 08/27/20 Kenton Katz MD NO INFO AVAILABLE Assigned Endocrinology Provider 08/28/20 07/23/21 Karen Veliz DO [address] [place] [address] Assigned PCP 08/28/20 01/14/22 documented as of this encounter
--- OUTSIDE RECORDS SUMMARY | 2023-06-02 11:20 | XMS_ITS | Encounter Summary ---
Author Name Unknown Organization [place] Address [address] [facility] [place] [address] Care Team Providers Care Emt Basic Name Role Phone Andreas Patel MD Primary Care Provider [phone] Caitlin Ballesteros MD Primary Care Provider [phone] Lisa Dewitt DO Primary Care Provider [phone] Bebeto Roth MD Unavailable [phone] Astrid Rios PA-C Unavailable [facility] Primary [facility] e Provider Keri Elias MD Primary Care Provider Unavailable Francisco Metz MD Primary Care Provider Francisco Metz MD Unavailable [phone] Kenton Katz MD Unavailable Henrietta Karen Preston DO Primary Care Provider + [phone] Kenton Katz MD Unavailable Henrietta Karen Preston DO Unavailable [phone] Encounter Details Date Type Department Care Team (Late st Contact Info) Description 09/08/2011 Office Visit-P INTERFACE P DEPT August Ontiveros MD [address] [address] Social History Tobacco Use Types Packs/Day Years Used Date Smoking Tobacco: Never Assessed Sex and Gender Information Value Date Recorded Sex Assigned at Not on file Gender Identity Not on file Sexual Orientation Not on file documented as of this encounter Progress Notes * August Ontiveros MD - 09/08/2011 3:00 PM CDT Manufacturing Engineering Director: WestonAugust Status: Final Encounter: 2011-09-08 15:00:00.000 Type: FM Ultrasound Active Problems Acne Vulgaris (706.1) Anxiety (300.00) Care Coordinated By; Tier 0 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 US 2nd & 3rd Trimester Ultrasound Report Primary MD: Lesli/Amanda Rotary Veneer Machine Operator: August Ontiveros Indications: size less than dates follow up Machine: LEAFER Pro FHR: 150s Fluid:Normal TJ: 14.5 Placenta [...] By: August Ontiveros M.D.; 09/09/2011 3:11 PM EARTH MOVING MACHINE OPERATOR; Author. H MOVING MACHINE OPERATOR documented in this encounter Plan of Treatment Not on file documented as of this encounter Visit Diagnoses Not on filedocumented in this encounter Care Teams Emt Basic Relationship Specialty Start Date End Date Andreas Patel MD PCP - General 10/05/11 10/07/11 Caitlin Ballesteros MD PCP - General 10/08/11 08/11/13 Lisa Dewitt DO [facility] [address] [place] [address] PCP - General 08/12/13 07/15/14 [facility] [address] [place] [address] PCP - General 07/16/14 03/11/15 Keri Elias MD [address] [place] [address] PCP - General Family Practice 03/12/15 11/13/18 Francisco Metz MD [address] [place] [address] PCP - General Family Practice 11/14/18 04/02/20 Karen Veliz DO [address] [place] [address] PCP - General Family Medicine 04/03/20 Bebeto Roth MD [address] [place] [address] Orthopedics 07/09/14 Astrid Rios PA-C [address] [place] [address] Physician Drawing Checker Physician Drawing Checker - Surgical 07/09/14 Francisco Metz MD [place] [address] ANGELLA LUCIO [address] Assigned PCP 07/04/19 02/01/20 Kenton Katz MD NO INFO AVAILABLE Assigned PCP 02/02/20 08/27/20 Kenton Katz MD NO INFO AVAILABLE Assigned Endocrinology Provider 08/28/20 07/23/21 Karen Veliz DO 2019 [place] [address] Assigned PCP 08/28/20 01/14/22 documented as of this encounter
--- OUTSIDE RECORDS SUMMARY | 2023-06-02 11:20 | XMS_ITS | Encounter Summary ---
Author Name Unknown Organization [place] Address [address] [facility] [place] [address] Care Team Providers Care Radiology Aide Name Role Phone Andreas Patel MD Primary Care Provider [phone] Caitlin Ballesteros MD Primary Care Provider [phone] Lisa Dewitt DO Primary Care Provider [phone] Bebeto Roth MD Unavailable [phone] Astrid Rios PA-C Unavailable [phone] [place] [address] - [facility] Primary Car e Provider Keri Elias MD Primary Care Provider Unavailable Francisco Metz MD Primary Care Provider Francisco Metz MD Unavailable [phone] Kenton Katz MD Unavailable Henrietta Karen Preston DO Primary Care Provider + [phone] Kenton Katz MD Unavailable Henrietta Karen Preston DO Unavailable [phone] Encounter Details Date Type Department Care Team (Late st Contact Info) Description 09/22/2011 Office Visit-[facility] INTERFACE P DEPT Aditi Boyer MD [facility] [address] [place], [place] [id number] Social History Tobacco Use Types Packs/Day Years Used Date Smoking Tobacco: Never Alcohol Use Standard Drinks/Week Comments No 0 (1 standard drink = 0.6 oz pur e alcohol) Comments Yes Sex and Gender Information Value Date Recorded Sex Assigned at Not on file Gender Identity Not on file Sexual Orientation Not on file documented as of this encounter Progress Notes * Aditi Boyer MD - 09/22/2011 2:00 PM CDT Clinical Investigator: Merlin Aditi Status: Final Encounter: 2011-09-22 14:00:00.000 Type: [facility] Hospital Note Allergies No Known Drug Allergy. [...] By: Aditi Boyer M.D.; 09/26/2011 2:06 PM MEDICAL LAB ASSISTANT. documented in this encounter Plan of Treatment Not on file documented as of this encounter Visit Diagnoses Not on filedocumented in this encounter Care Teams Radiology Aide Relationship Specialty Start Date End Date Andreas Patel MD PCP - General 10/05/11 10/07/11 Caitlin Ballesteros MD PCP - General 10/08/11 08/11/13 Lisa Dewitt DO [facility] [address] [place] [address] PCP - General 08/12/13 07/15/14 [facility] [address] [place] [address] PCP - General 07/16/14 03/11/15 Keri Elias MD [address] [place] [address] PCP - General Family Practice 03/12/15 11/13/18 Francisco Metz MD [address] [place] [address] PCP - General Family Practice 11/14/18 04/02/20 Karen Veliz DO [address] [place] [address] PCP - General Family Medicine 04/03/20 Bebeto Roth MD [address] [place] [address] Orthopedics 07/09/14 Astrid Rios PA-C [address] [place] [address] Physician Head Operator Sulfide Physician Head Operator Sulfide - Surgical 07/09/14 Francisco Metz MD [place] [address] [place] [address] ANGELLA LUCIO [address] Assigned PCP 07/04/19 02/01/20 Kenton Katz MD NO INFO AVAILABLE Assigned PCP 02/02/20 08/27/20 Kenton Katz MD NO INFO AVAILABLE Assigned Endocrinology Provider 08/28/20 07/23/21 Karen Veliz DO 2019 [place] [address] Assigned PCP 08/28/20 01/14/22 documented as of this encounter
--- OUTSIDE RECORDS SUMMARY | 2023-06-02 11:20 | XMS_ITS | Encounter Summary ---
Author Name Unknown Organization [place] Address [address] [place] [address]. [place] [address] Care Team Providers Care Television Writer Name Role Phone Andreas Patel MD Primary Care Provider [phone] Caitlin Ballesteros MD Primary Care Provider [phone] Lisa Dewitt DO Primary Care Provider [phone] Bebeto Roth MD Unavailable [phone] Astrid Rios PA-C Unavailable [phone] [facility] Primary Car e Provider Keri Elias MD Primary Care Provider Unavailable Francisco Metz MD Primary Care Provider Francisco Metz MD Unavailable [phone] Kenton Katz MD Unavailable Henrietta Karen Preston DO Primary Care Provider + [phone] Kenton Katz MD Unavailable Henrietta Karen Preston DO Unavailable [phone] Encounter Details Date Type Department Care Team (Late st Contact Info) Description 09/30/2011 [facility] Only [facility] [address] [place] [address] Angela Holguin Social History Tobacco Use Types Packs/Day Years [...] on filedocumented in this encounter Care Teams Television Writer Relationship Specialty Start Date End Date Andreas Patel MD PCP - General 10/05/11 10/07/11 Caitlin Ballesteros MD PCP - General 10/08/11 08/11/13 Lisa Dewitt DO [facility] [address] [place] [address] PCP - General 08/12/13 07/15/14 [facility] [address] [place] [address] PCP - General 07/16/14 03/11/15 Keri Elias MD [address] [place] [address] PCP - General Family Practice 03/12/15 11/13/18 Francisco Metz MD [address] [place] [address] PCP - General Family Practice 11/14/18 04/02/20 Karen Veliz DO [address] [place] [address] PCP - General Family Medicine 04/03/20 Bebeto Roth MD [facility] [address] [address] Orthopedics 07/09/14 Astrid Rios PA-C [address] [place] [address] Physician Manager Asset Physician Manager Asset - Surgical 07/09/14 Francisco Metz MD [facility] [address] [place] [address] ANGELLA LUCIO [address] Assigned PCP 07/04/19 02/01/20 Kenton Katz MD NO INFO AVAILABLE Assigned PCP 02/02/20 08/27/20 Kenton Katz MD NO INFO AVAILABLE Assigned Endocrinology Provider 08/28/20 07/23/21 Karen Veliz DO [address] [place] [address] Assigned PCP 08/28/20 01/14/22 documented as of this encounter
--- OUTSIDE RECORDS SUMMARY | 2023-06-02 11:20 | XMS_ITS | Clinical Summary ---
Author Name Unknown Organization [place] Address [address] [facility] [place] [address] Care Team Providers Care Band Reamer Machine Operator Name Role Phone Bebeto Roth MD Unavailable [phone] Astrid Rios PA-C Unavailable [phone] Karen Veliz DO Primary Care Provider [phone] Allergies Active Allergy Reactions Criticality Noted Date Comments Seasonal Allergies 10/04/2011 Medications Medication Sig Dispensed Refills Start Date End Date Status fluticasone (FLONASE) 50 MCG/ACT sprayIndications:Envi ronmental allergies [place] 1-2 sprays into both nostrils daily 16 [...] migh t be different from the original. [email or web address] Problem Noted Date Diagnosed Date S/P spinal fusion 10/23/2017 Frequent UTI 12/14/2016 Anemia, iron deficiency 12/14/2016 Pain in thoracic spine 08/07/2014 Other orthopedic aftercare(V54.89) 08/07/2014 Grief 03/13/2014 Overview: Pt's boyfriend of heroin overdose day after 2013. Seeing [facility] for therapy Dermatofibroma of left thigh 11/22/2012 Health Long Term 12/19/2011 Overview: Tier 0 DX V65.8 REPLACED WITH 30008 HEALTH LONG TERM (05/21/2012) Anxiety 12/19/2011 Congenital scoliosis 12/19/2011 Scoliosis [...] OB PROVIDERS 1.Keri Elias 2. Eva Hogan ([phone]) CARE PLAN ?? Consults: ?? Ultrasounds: 08/03/16 [...] Comments Blood Pressure 94/56 02/18/2019 7:21 PM ELECTRONIC SCALE ASSEMBLER AND TESTER Pulse 56 02/18/2019 7:21 PM ELECTRONIC SCALE ASSEMBLER AND TESTER Temperature 36.9 ??C (98.4 ??F) 02/18/2019 3:50 PM CS T Respiratory Rate 16 02/18/2019 7:21 PM ELECTRONIC SCALE ASSEMBLER AND TESTER Oxygen Saturation 94% 02/18/2019 7:21 PM ELECTRONIC SCALE ASSEMBLER AND TESTER Inhaled Oxygen Concentration - - Weight 73.5 kg (162 lb) 02/18/2019 3:50 PM ELECTRONIC SCALE ASSEMBLER AND TESTER Height 160 cm (5' 3) 04/18/2018 8:42 AM ELECTRONIC SCALE ASSEMBLER AND TESTER Body Mass Index 28.7 04/18/2018 8:42 AM ELECTRONIC SCALE ASSEMBLER AND TESTER Plan of Treatment Not on file Medical Devices Implanted Type Area Radio Dispatcher Device Identifier Shelf Expiration Date Model / Serial / Lot Graft Bone Crush Canc 30ml [id number] Implanted:Qty : 1 on 10/23/2017 by Bebeto Roth MD at [facility] Bone/Tissu e/Biologic N/A: Spine Thoracic MUSCULOSKELETAL HANSEN 08/28/2020 [id number] / [id number] / Graft Bone Crush Canc 30ml [id number] Implanted:Qty : 1 on 10/23/2017 by Bebeto Roth MD at [facility] Bone/Tissu e/Biologic N/A: Spine Thoracic MUSCULOSKELETAL HANSEN 08/07/2020 [id number] / [id number] / Imp Scr Medt 5.5/6.0mm Solera 5.5x40mm Ma [id number] Implanted:Qty : 9 on 10/23/2017 by Bebeto Roth MD at [facility] Metallic Hardware/A nchor N/A: Spine Thoracic [employer] [id number] / / [id number] Imp Scr Medt 5.5/6.0mm Solera 5.5x35mm Ma [id number] Implanted:Qty : 4 on 10/23/2017 by Bebeto Roth MD at [facility] Metallic Hardware/A nchor N/A: Spine Thoracic [employer] [id number] / / Imp Scr Set Medt Solera Break Off 5.5mm Ti [id number] Implanted:Qty : 13 on 10/23/2017 by Bebeto Roth MD at [facility] Metallic Hardware/A nchor N/A: Spine Thoracic [employer] [id number] / / [id number] Imp Abhijeet Medt Solera Lined 5.1v135gy Chr [id number] Implanted:Qty : 1 on 10/23/2017 by eBbeto Roth MD at [facility] Metallic Hardware/A nchor N/A: Spine Thoracic [employer] [id number] / / [id number] Imp Scr Set [place] Medt 5.5 To 5.5mm [id number] Implanted:Qty : 2 on 10/23/2017 by Bebeto Roth MD at [facility] Metallic Hardware/A nchor N/A: Spine Thoracic [employer] [id number] / / Imp Scr D[place]k Legacy Breakoff Set 5.5mm Ti [id number] Implanted:Qty : 5 on 10/23/2017 by Bebeto Roth MD at [facility] Metallic Hardware/A nchor N/A: Spine Thoracic [employer]-DANEK [id number] / / Axial [place] Implanted:Qty : 2 on 10/23/2017 by Bebeto Roth MD at [facility] N/A: Spine Thoracic [employer]-DANEK [id number] / / Explanted Type Area Radio Dispatcher Device Identifier Shelf Expiration Date Model / Serial / Lot 5 Set Screws Explanted:Qty: 1 on 10/23/2017 at [facility] N/A: Spine Thoracic Advance Directives For more information, please contact: [phone] * Full Code (Latest Code Status on File) Date Activated Date Inactivated Comments 10/25/2017 10:23 AM 10/27/2017 8:35 AM * Full Code Date Activated Date Inactivated Comments 10/23/2017 2:18 PM 10/25/2017 10:23 AM * Full Code Date Activated Date Inactivated Comments 03/05/2017 11:49 AM 10/23/2017 2:18 PM Care Teams Band Reamer Machine Operator Relationship Specialty Start Date End Date Karen Veliz DO [address] [place] [address] PCP - General Family Medicine 04/03/20 Bebeto Roth MD [address] [place] [address] Orthopedics 07/09/14 Astrid Rios PA-C [address] [address] Physician Instrumentation Engineering Technician Physician Instrumentation Engineering Technician - Surgical 07/09/14
--- OUTSIDE RECORDS SUMMARY | 2023-06-02 11:20 | XMS_ITS | Encounter Summary ---
Author Name Unknown Organization [place] Address [address] [facility] [place] [address] Care Team Providers Care Neurology Hospitalist Name Role Phone Bebeto Roth MD Unavailable [phone] Astrid Rios PA-C Unavailable [phone] Francisco Metz MD Primary Care Provider Francisco Metz MD Unavailable [phone] Kenton Katz MD Unavailable Henrietta vailable Karen Veliz DO Primary Care Provider [phone] Kenton Katz MD Unavailable Henrietta vaKaren Foster DO Unavailable [phone] Reason for Visit * Reason Onset Date Comments Referral 12/25/2019 Encounter Details Date Type Department Care Team (Late st Contact Info) Description 12/25/[address] [address] Francisco Metz MD [place] [address] ANGELLA LUCIO [address] Referral Social History Tobacco Use Types Packs/Day Years [...] encounter Miscellaneous Notes * Telephone Encounter - Rachel, May - 01/01/2020 2:44 PM CST Faustina calling to check on this referral. Would like it dated for 10/14/19 PING/RECEIVING MANAGER * Telephone Encounter - Cherry Viera - 12/26/2019 12:49 PM CST Will forward to PCP to address. Please advise. Cherry Reyes Mobile Health Vehicle Operator PING/RECEIVING MANAGER * Telephone Encounter - Rachel, May - 12/25/2019 3:35 PM CST [facility] Family Medicine phone call message - order or referral request from patient: Order or referral being requested: Referral to Physical Therapy At Location: [facility] Additional Details: KENNY Weems states this patient needs a referral for outpatient physical therapy at their location from her primary doctor here. She hasn't had any OB care here and she states that this is the only location she can see her receiving care. Faustina states the patient has attended 10/13and 10/27. Patient no showed 11/10 Referral only -Specialty Physical Therapy Location [address] [address] [place] to leave a message on voice mail? Yes Primary language: Lao Civil Cadd Technician needed? No Call taken on December 25, 2019 at 3:35 PM by May Rachel Order request route to P SMI TRIAGE Referrals Route to P SMI (Green/Crow/Purple) CARPET SEWER PING/RECEIVING MANAGER documented in this encounter Plan of Treatment Not on file documented as of this encounter Visit Diagnoses Not on filedocumented in this encounter Care Teams Neurology Hospitalist Relationship Specialty Start Date End Date Francisco Metz MD [address] [place] [address] PCP - General Family Practice 11/14/18 04/02/20 Karen Veliz DO [address] [place] [address] PCP - General Family Medicine 04/03/20 Bebeto Roth MD [facility] [address] [address] Orthopedics 07/09/14 Astrid Rios PA-C [facility] [address] [address] Physician Wrapper Sorter Physician Wrapper Sorter - Surgical 07/09/14 Francisco Metz MD [place] [address] [place] [address] Assigned PCP 07/04/19 02/01/20 Kenton Katz MD NO INFO AVAILABLE Assigned PCP 02/02/20 08/27/20 Kenton Katz MD NO INFO AVAILABLE Assigned Endocrinology Provider 08/28/20 07/23/21 Karen Veliz DO [address] [place] [address] Assigned PCP 08/28/20 01/14/22 documented as of this encounter
--- OUTSIDE RECORDS SUMMARY | 2023-06-02 11:20 | XMS_ITS | Encounter Summary ---
Author Name Unknown Organization [place] Address [address] [facility] [place] [address] Care Team Providers Care Prototype Technician Name Role Phone Bebeto Roth MD Unavailable [phone] Astrid Rios PA-C Unavailable [phone] Keri Elias MD Primary Care Provider Unavailable Francisco Metz MD Primary Care Provider Francisco Metz MD Unavailable [phone] Kenton Katz MD Unavailable Henrietta vailable Karen Veliz DO Primary Care Provider [phone] Kenton Katz MD Unavailable Henrietta vaKaren Foster DO Unavailable [phone] Encounter Details Date Type Department Care Team (Late st Contact Info) Description 01/18/2018 MyC Medical Advice [facility] Medicine Clinic [facility]. [address] [place] [address], [address] [place] [address] Keri Elias MD XXX RETIRED XXX 03/10/2022 CONFIRMED Social History Tobacco Use Types Packs/Day Years [...] encounter Miscellaneous Notes * Telephone Encounter - Alanna Sanders RN - 01/19/2018 1:26 PM CST RN reviewed chart and it looks like it used to be 100 mg PO once daily. Messaged patient to obtain pharmacy choice. Routing to PCP. Alanna Sanders RN RACT OFFICER documented in this encounter Plan of Treatment Not on file documented as of this encounter Visit Diagnoses Not on filedocumented in this encounter Care Teams Prototype Technician Relationship Specialty Start Date End Date Keri Elias MD [facility] [address] PCP - General Family Practice 03/12/15 11/13/18 Francisco Metz MD [facility] [address] PCP - General Family Practice 11/14/18 04/02/20 Karen Veliz DO [address] [place] [address] PCP - General Family Medicine 04/03/20 Bebeto Roth MD [facility] [address] Orthopedics 07/09/14 Astrid Rios PA-C [facility] [address] Physician Project Systems Engineer Physician Project Systems Engineer - Surgical 07/09/14 Francisco Metz MD [place] [address] ANGELLA LUCIO [address] Assigned PCP 07/04/19 02/01/20 Kenton Katz MD NO INFO AVAILABLE Assigned PCP 02/02/20 08/27/20 Kenton Katz MD NO INFO AVAILABLE Assigned Endocrinology Provider 08/28/20 07/23/21 Karen Veliz DO [address] [place] [address] Assigned PCP 08/28/20 01/14/22 documented as of this encounter
--- OUTSIDE RECORDS SUMMARY | 2023-06-02 11:20 | XMS_ITS | Encounter Summary ---
Author Name Unknown Organization [place] Address [address] [facility] [place] [address] Care Team Providers Care Roof Tiler Name Role Phone Andreas Patel MD Primary Care Provider [phone] Caitlin Ballesteros MD Primary Care Provider [phone] Lisa Dewitt DO Primary Care Provider + [phone] Bebeto Roth MD Unavailable [phone] Astrid Rios PA-C Unavailable [phone] [facility] Primary Car e Provider Keri Elias MD Primary Care Provider Unavailable Francisco Metz MD Primary Care Provider Francisco Metz MD Unavailable [phone] Kentno Katz MD Unavailable Henrietta Karen Preston DO Primary Care Provider + [phone] Kenton Katz MD Unavailable Henrietta Karen Preston DO Unavailable [phone] Encounter Details Date Type Department Care Team (Late st Contact Info) Description 09/08/2011 Office Visit-[facility] INTERFACE P DEPT Andreas Patel MD [address] [place] [address] Social History Tobacco Use Types Packs/Day Years Used Date Smoking Tobacco: Never Assessed Sex and Gender Information Value Date Recorded Sex Assigned at Not on file Gender Identity Not on file Sexual Orientation Not on file documented as of this encounter Progress Notes * AmandaAndreas park - 09/08/2011 3:00 PM CDT Heel Dipper: Andreas Patel Status: Amended, Unsigned Encounter: 2011-09-08 15:00:00.000 Type: FM Ultrasound R SPECIALIST documented in this encounter Plan of Treatment Not on file documented as of this encounter Visit Diagnoses Not on filedocumented in this encounter Care Teams Roof Tiler Relationship Specialty Start Date End Date Andreas Patel MD PCP - General 10/05/11 10/07/11 Caitlin Ballesteros MD PCP - General 10/08/11 08/11/13 Lisa Dewitt DO [facility] [address] [place] [address] PCP - General 08/12/13 07/15/14 [facility] [address] [place] [address] PCP - General 07/16/14 03/11/15 Keri Elias MD [address] [place] [address] PCP - General Family Practice 03/12/15 11/13/18 Francisco Metz MD [address] [place] [address] PCP - General Family Practice 11/14/18 04/02/20 Karen Veliz DO [address] [place] [address] PCP - General Family Medicine 04/03/20 Bebeto Roth MD [address] [place] [address] Orthopedics 07/09/14 Astrid Rios PA-C [address] [place] [address] Physician Industrial Machine Operator Physician Industrial Machine Operator - Surgical 07/09/14 Francisco Metz MD [address] [place] [address] Assigned PCP 07/04/19 02/01/20 Kenton Katz MD NO INFO AVAILABLE Assigned PCP 02/02/20 08/27/20 Kenton Katz MD NO INFO AVAILABLE Assigned Endocrinology Provider 08/28/20 07/23/21 Karen Veliz DO [address] [place], [place] [address] Assigned PCP 08/28/20 01/14/22 documented as of this encounter
--- OUTSIDE RECORDS SUMMARY | 2023-06-02 11:21 | XMS_ITS | Encounter Summary ---
Author Name Unknown Organization [place] Address [address] [place] [address]. [place] [address] Care Team Providers Care Certified Maintenance Welder Name Role Phone Andreas Patel MD Primary Care Provider [phone] Caitlin Ballesteros MD Primary Care Provider [phone] Lisa Dewitt DO Primary Care Provider [phone] Bebeto Roth MD Unavailable [phone] Astrid Rios PA-C Unavailable [phone] [facility] Primary Car e Provider Keri Elias MD Primary Care Provider Unavailable Francisco Metz MD Primary Care Provider Francisco Metz MD Unavailable [phone] Kenton Katz MD Unavailable Henrietta Karen Preston DO Primary Care Provider + [phone] Kenton Katz MD Unavailable Henrietta Kraen Preston DO Unavailable [phone] Encounter Details Date Type Department Care Team (Late st Contact Info) Description 04/21/2011 [facility] Only [facility] [address] [place] [address] Radha Pierce Positive test (Primary Dx) Social History Tobacco Use Types Packs/Day Years Used Date Smoking Tobacco: Never Assessed Sex and Gender Information Value Date Recorded Sex Assigned at Not on file Gender Identity Not on file Sexual Orientation Not on file documented as of this encounter Plan of Treatment Not on file documented as of this encounter Visit Diagnoses Diagnosis Positive test- Primary examination or test, positive result documented in this encounter Care Teams Certified Maintenance Welder Relationship Specialty Start Date End Date Andreas Patel MD PCP - General 10/05/11 10/07/11 Caitlin Ballesteros MD PCP - General 10/08/11 08/11/13 Lisa Dewitt DO [facility] [address] [place] [address] PCP - General 08/12/13 07/15/14 [facility] [address] [place] [address] PCP - General 07/16/14 03/11/15 Keri Elias MD [address] [place] [address] PCP - General Family Practice 03/12/15 11/13/18 Francisco Metz MD [address] [place] [address] PCP - General Family Practice 11/14/18 04/02/20 Karen Veliz DO [address] [place] [address] PCP - General Family Medicine 04/03/20 Bebeto Roth MD [address] [address] Orthopedics 07/09/14 Astrid Rios PA-C [address] [place] [address] Physician Farm Contractor Buyer Physician Farm Contractor Buyer - Surgical 07/09/14 Francisco Metz MD [facility] [address] [place] [address] ANGELLA LUCIO [address] Assigned PCP 07/04/19 02/01/20 Kenton Katz MD NO INFO AVAILABLE Assigned PCP 02/02/20 08/27/20 Kenton Katz MD NO INFO AVAILABLE Assigned Endocrinology Provider 08/28/20 07/23/21 Karen Veliz DO [address] [place] [address] Assigned PCP 08/28/20 01/14/22 documented as of this encounter
--- OUTSIDE RECORDS SUMMARY | 2023-06-02 11:21 | XMS_ITS | Encounter Summary ---
Author Name Unknown Organization [place] Address [address] [facility] [place] [address] Care Team Providers Care Steam Fitter Name Role Phone Andreas Patel MD Primary Care Provider [phone] Caitlin Ballesteros MD Primary Care Provider [phone] Lisa Dewitt DO Primary Care Provider [phone] Bebeto Roth MD Unavailable [phone] Astrid Rios PA-C Unavailable [phone] [facility] Primary Car e Provider Keri Elias MD Primary Care Provider Unavailable Francisco Metz MD Primary Care Provider Francisco Metz MD Unavailable [phone] Kenton Katz MD Unavailable Henrietta Karen Preston DO Primary Care Provider + [phone] Kenton Katz MD Unavailable Henrietta Karen Preston DO Unavailable [phone] Encounter Details Date Type Department Care Team (Late st Contact Info) Description 06/23/2011 Office Visit-[facility] INTERFACE [facility] DEPT Social History Tobacco Use Types Packs/Day Years Used Date Smoking Tobacco: Never Assessed Sex and Gender Information Value Date Recorded Sex Assigned at Not on file Gender Identity Not on file Sexual Orientation Not on file documented as of this encounter Progress Notes * SY [facility] ULTRASOUND - 06/23/2011 9:10 AM CDT Rolled Gold Plater: PATRICIO, ULTRASOUND Status: Amended, Final Encounter: 2011-06-23 09:10:00.000 Type: FM Ultrasound Active Problems Acne Vulgaris (706.1) Anxiety (300.00) Care Coordinated By; Tier 0 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 US 2nd & 3rd Trimester Ultrasound Report Primary MD: Dr Navarro Architect: Latesha Harley Indications: survey P: 2 Machine: WomenCentric 5 Pro FHR: 138 bpm Fluid:Normal Placenta [...] By: August Ontiveros ; 06/27/2011 3:10 PM BRANCH LOGISTICS SUPERVISOR. Signature Signed By: Latesha Harley ; 06/23/2011 9:48 AM BRANCH LOGISTICS SUPERVISOR. Signed By: August Ontiveros M.D.; 06/27/2011 3:11 PM BRANCH LOGISTICS SUPERVISOR; Author. CH LOGISTICS SUPERVISOR documented in this encounter Plan of Treatment Not on file documented as of this encounter Visit Diagnoses Not on filedocumented in this encounter Care Teams Steam Fitter Relationship Specialty Start Date End Date Andreas Patel MD PCP - General 10/05/11 10/07/11 Caitlin Ballesteros MD PCP - General 10/08/11 08/11/13 Lisa Dewitt DO [facility] [address] [place] [address] PCP - General 08/12/13 07/15/14 [facility] [address] [place] [address] PCP - General 07/16/14 03/11/15 Keri Elias MD [address] [place] [address] PCP - General Family Practice 03/12/15 11/13/18 Francisco Metz MD [address] [place] [address] PCP - General Family Practice 11/14/18 04/02/20 Karen Veliz DO [address] [place] [address] PCP - General Family Medicine 04/03/20 Bebeto Roth MD [address] [address] Orthopedics 07/09/14 Astrid Rios PA-C [address] [address] Physician Generation Manager Physician Generation Manager - Surgical 07/09/14 Francisco Metz MD [place] [address] ANGELLA LUCIO [address] Assigned PCP 07/04/19 02/01/20 Kenton Katz MD NO INFO AVAILABLE Assigned PCP 02/02/20 08/27/20 Kenton Katz MD NO INFO AVAILABLE Assigned Endocrinology Provider 08/28/20 07/23/21 Karen Veliz DO [address] [place] [address] Assigned PCP 08/28/20 01/14/22 documented as of this encounter
[2023-06-02] MEDS: METOCLOPRAMIDE HCL 5 MG/ML INJ 10 MG IVP (11:25)
[2023-06-02] MEDS: 0.9 % SODIUM CHLORIDE 1000 ml 1,000 ML IV (11:25)
[2023-06-02] MEDS: KETOROLAC 15 MG/ML inj IVP (11:25)
[2023-06-02] MEDS: diphenhydrAMINE 50 MG/ML inj 12.5 MG IVP (11:25)
[2023-06-02 12:33] VITALS: BP 112/73; PULSE 80; RESP 18; TEMP 36.6
== END 2023-06-02 12:34 | disposition home or self-care (01) ==
PROVIDERS: Emergency Provider Emergency Medicine
DX: R51.9 Headache, unspecified (principal)
CPT/HCPCS: 87631; 96374; 96375; 99283; J1200; J1885; J2765; J7030

== ENCOUNTER 2023-07-12 01:15 | Emergency (ER) | payer OTHER, SELFPAY ==
[2023-07-12 01:24] VITALS: BP 129/84; PULSE 89; RESP 20; TEMP 36.7; O2SAT 99; BMI 29.2
--- OUTSIDE RECORDS SUMMARY | 2023-07-12 02:27 | XMS_ITS | Encounter Summary ---
Author Organization [place] Address [address] [facility] [place] [address] Care Team Providers Care Financial Brokers Name Role Phone Bebeto Roth MD Unavailable [phone] Astrid Rios PA-C Unavailable [phone] Francisco Metz MD Primary Care Provider Francisco Metz MD Unavailable [phone] Kenton Katz MD Unavailable Henrietta Karen Preston DO Primary Care Provider [phone] Kenton Katz MD Unavailable Henrietta Karen Preston DO Unavailable [phone] Reason for Visit * Reason Onset Date Comments Referral 12/25/2019 Encounter Details Date Type Department Care Team (Late st Contact Info) Description 12/25/[address] [place] [address] [place] [address] Francisco Metz MD [place] [address] ANGELLA LUCIO [address] Referral Social History Tobacco Use Types Packs/Day [...] referral. Would like it dated for 10/14/19 ING MACHINE SETUP OPERATOR * Telephone Encounter - Cherry Viera - 12/26/2019 12:49 PM CST Will forward to PCP to address. Please advise. Cherry Reyes Dredge Mate ING MACHINE SETUP OPERATOR * Telephone Encounter - Rachel, May - 12/25/2019 3:35 PM CST [facility] Family Medicine phone call message - order or referral request from patient: Order or referral being requested: Referral to Physical Therapy At Location: [facility] Additional Details: KENNY Weems states this patient needs a referral for outpatient physical therapy at their location from her primary doctor here. She hasn't had any OB care here and she states that this is the only location she can see her receiving care. Faustina states the patient has attended 10/13and 10/27. Patient no showed 11/10 Referral only -Specialty Physical Therapy Location [address] [address] OK to leave a message on voice mail? Yes Primary language: Nauruan Agile Tester needed? No Call taken on December 25, 2019 at 3:35 PM by May Rachel Order request route to P SMI TRIAGE Referrals Route to P SMI (Green/Crow/Purple) DONKEY RIDE OPERATOR ING MACHINE SETUP OPERATOR documented in this encounter Plan of Treatment Not on file documented as of this encounter Visit Diagnoses Not on filedocumented in this encounter Care Teams Financial Brokers Relationship Specialty Start Date End Date Francisco Metz MD [address] [place] [address] PCP - General Family Practice 11/14/18 04/02/20 Karen Veliz DO [address] [place] [address] PCP - General Family Medicine 04/03/20 Bebeto Roth MD [facility] [address] [address] Orthopedics 07/09/14 Astrid Rios PA-C [address] [address] Physician Woodworking Bench Carpenter Physician Woodworking Bench Carpenter - Surgical 07/09/14 Francisco Metz MD [place] [address] [place] [address] Assigned PCP 07/04/19 02/01/20 Kenton Katz MD NO INFO AVAILABLE Assigned PCP 02/02/20 08/27/20 Kenton Katz MD NO INFO AVAILABLE Assigned Endocrinology Provider 08/28/20 07/23/21 Kaern Veliz DO [address] [place] [address] Assigned PCP 08/28/20 01/14/22 documented as of this encounter
--- OUTSIDE RECORDS SUMMARY | 2023-07-12 02:27 | XMS_ITS | Encounter Summary ---
Author Organization [place] Address [address] [facility] [place] [address] Care Team Providers Care Boat Designer Name Role Phone Andreas Patel MD Primary Care Provider [phone] Caitlin Ballesteros MD Primary Care Provider [phone] Lisa Dewitt DO Primary Care Provider [phone] Bebeto Roth MD Unavailable [phone] Astrid Rios PA-C Unavailable [phone] [facility] Primary Car e Provider Keri Elias MD Primary Care Provider Unavailable Francisco Metz MD Primary Care Provider Francisco Metz MD Unavailable [phone] Kenton Katz MD Unavailable Henrietta Karen Preston DO Primary Care Provider + [phone] Kenton Katz MD Unavailable Henrietta Karen Preston DO Unavailable [phone] Encounter Details Date Type Department Care Team (Late st Contact Info) Description 10/06/2011 Office Visit-[facility] INTERFACE P DEPT Andreas Patel MD [address] [place] [address] Social History Tobacco Use Types Packs/Day Years [...] Andreas Patel - 10/06/2011 1:20 PM CDT Return Clerk: Andreas Patel Status: Signed Encounter: 2011-10-06 13:20:00.000 Type: FM Visit Reason For Visit This 31 year patient presents for {{{[ ]}}}[ preventive health visit ][ diabetes visit ]. {{{Weigh Tank Operator used this visit; [ Hmong ][ [place] Citizen ][ Frisian ][ Oromo ][ Nigerian ][ Other: ]}}} {{{Name of civil engineering technician [ ]. Weigh Tank Operator's Phone number: [ [phone] ][ [phone] ][ [phone] ][ 456 ]-[ ]-[ ] }}} {{{Minor without Guardian. Verbal consent obtained from [ Mother ] [ Father ] [ ] by trouble locator test desk staff [ ]. Contact number: [ [phone] ] [ [phone] ] [ [phone] ][ [phone] ] [ ] }}} {{{PHQ2 completed and [...] OB BIOPHYS PROFILE W/O NST Principal Result Weigh Tank Operator: OSWALDO ARRIAGA PROFESSOR&& Biophysical profile. 09/30/11. [...] and agree with the findings. Performed at: [place]. Plan {{{Patient participated in and [ agrees ][ disagrees ] with today's plan.}}} {{{Patient's family participated in and [ agree ][ disagree ] with today's plan.}}} {{{Patient and family participated in and [ agree ][ disagree ] with today's plan.}}}. Signature Signed By: Andreas Patel M.D.,Resident; 10/10/2011 11:03 AM MORTGAGE MANAGER. documented in this encounter Plan of Treatment Not on file documented as of this encounter Visit Diagnoses Not on filedocumented in this encounter Care Teams Boat Designer Relationship Specialty Start Date End Date Andreas Patel MD PCP - General 10/05/11 10/07/11 Caitlin Ballesteros MD PCP - General 10/08/11 08/11/13 Lisa Dewitt DO [facility] [address] [place] [address] PCP - General 08/12/13 07/15/14 [facility] [address] [place] [address] PCP - General 07/16/14 03/11/15 Keri Elias MD 2019 [place] [address] PCP - General Family Practice 03/12/15 11/13/18 Francisco Metz MD [address] [place] [address] PCP - General Family Practice 11/14/18 04/02/20 Karen Veliz DO [address] [place] [address] PCP - General Family Medicine 04/03/[address] [facility] [address] [address] Orthopedics 07/09/14 Astrid Rios PA-C [address] [place] [address] Physician Environmental Remediation Consultant Physician Environmental Remediation Consultant - Surgical 07/09/14 Francisco Metz MD [facility] [address] [place] [address] [place] LUCIO [address] Assigned PCP 07/04/19 02/01/20 Kenton Katz MD NO INFO AVAILABLE Assigned PCP 02/02/20 08/27/20 Kenton Katz MD NO INFO AVAILABLE Assigned Endocrinology Provider 08/28/20 07/23/21 Karen Veliz DO [address] [place] [address] Assigned PCP 08/28/20 01/14/22 documented as of this encounter
--- OUTSIDE RECORDS SUMMARY | 2023-07-12 02:27 | XMS_ITS | Encounter Summary ---
Author Organization [place] Address [address] [facility] [place] [address] Care Team Providers Care Mixer Lever Operator Name Role Phone Bebeto Roth MD Unavailable [phone] Astrid Rios PA-C Unavailable Keri Elias MD Primary Care Provider Unavailable Francisco Metz MD Primary Care Provider Francisco Metz MD Unavailable [phone] Kenton Katz MD Unavailable Henrietta Karen Preston DO Primary Care Provider [phone] Kenton Katz MD Unavailable Henrietta Karen Preston DO Unavailable [phone] Reason for Visit * Reason Onset Date Comments Outreach 03/13/2017 Rtn no show #2 Encounter Details Date Type Department Care Team (Late st Contact Info) Description 03/13/2017 Telephone [facility] [address] [place] [address], [address] [place] [address] Keri Elias MD XXX RETIRED [...] some of your recently scheduled appointments. At [facility] we have a new no show policy, where if you miss too many appointments within 1 year, we may not be able to continue to schedule you. If you are unable to make your scheduled appointments, please call the clinic to cancel prior to your appointment time. EXAMINER documented in this encounter Plan of Treatment Not on file documented as of this encounter Visit Diagnoses Not on filedocumented in this encounter Care Teams Mixer Lever Operator Relationship Specialty Start Date End Date Keri Elias MD [address] [place] [address] PCP - General Family Practice 03/12/15 11/13/18 Francisco Metz MD [address] [place] [address] PCP - General Family Practice 11/14/18 04/02/20 Karen Veliz DO [address] [place] [address] PCP - General Family Medicine 04/03/20 Bebeto Roth MD [address] [place] [address] Orthopedics 07/09/14 Astrid Rios PA-C [address] [place] [address] Physician Senior Network Administrator Physician Senior Network Administrator - Surgical 07/09/14 Francisco Metz MD [place] [address] ANGELLA LUCIO [address] Assigned PCP 07/04/19 02/01/20 Kenton Katz MD NO INFO AVAILABLE Assigned PCP 02/02/20 08/27/20 Kenton Katz MD NO INFO AVAILABLE Assigned Endocrinology Provider 08/28/20 07/23/21 Karen Veliz DO 2019 [place] [address] Assigned PCP 08/28/20 01/14/22 documented as of this encounter
--- OUTSIDE RECORDS SUMMARY | 2023-07-12 02:27 | XMS_ITS | Encounter Summary ---
Author Organization [place] Address [address] [facility] [place] [address] Care Team Providers Care Staff Climate Scientist Name Role Phone Bebeto Roth MD Unavailable [phone] Astrid Rios PA-C Unavailable [phone] Keri Elias MD Primary Care Provider Unavailable Francisco Metz MD Primary Care Provider Francisco Metz MD Unavailable [phone] Kenton Katz MD Unavailable Henrietta Karen Preston DO Primary Care Provider [phone] Kenton Katz MD Unavailable Henrietta Karen Preston DO Unavailable [phone] Encounter Details Date Type Department Care Team (Late st Contact Info) Description 01/18/2018 [facility] Medical Advice [facility] [address] [place] [address], [address] [place], [place] [id number] Keri Elias MD XXX RETIRED XXX 03/10/2022 [...] choice. Routing to PCP. Alanna Sanders RN ER HEEL AND SOLE PRESS TENDER documented in this encounter Plan of Treatment Not on file documented as of this encounter Visit Diagnoses Not on filedocumented in this encounter Care Teams Staff Climate Scientist Relationship Specialty Start Date End Date Keri Elias MD [facility] [address] [address] PCP - General Family Practice 03/12/15 11/13/18 Francisco Metz MD [facility] [address] [address] PCP - General Family Practice 11/14/18 04/02/20 Karen Veliz DO 2019 [place] [address] PCP - General Family Medicine 04/03/20 Bebeto Roth MD [facility] [address] [address] Orthopedics 07/09/14 Astrid Rios PA-C [facility] [address] [address] Physician Youth Counselor Physician Youth Counselor - Surgical 07/09/14 Francisco Metz MD [place] [address] ANGELLA LUCIO [address] Assigned PCP 07/04/19 02/01/20 Kenton Katz MD NO INFO AVAILABLE Assigned PCP 02/02/20 08/27/20 Kenton Katz MD NO INFO AVAILABLE Assigned Endocrinology Provider 08/28/20 07/23/21 Karen Veliz DO 2019 [place] [address] Assigned PCP 08/28/20 01/14/22 documented as of this encounter
--- OUTSIDE RECORDS SUMMARY | 2023-07-12 02:27 | XMS_ITS | Encounter Summary ---
Author Organization [place] Address [address] [facility] [place] [address] Care Team Providers Care Genetics Nurse Name Role Phone Bebeto Roth MD Unavailable [phone] Astrid Rios PA-C Unavailable [phone] Keri Elias MD Primary Care Provider Unavailable Francisco Metz MD Primary Care Provider Francisco Metz MD Unavailable [phone] Kenton Katz MD Unavailable Henrietta Karen Preston DO Primary Care Provider [phone] Kenton Katz MD Unavailable Henrietta Karen Preston DO Unavailable [phone] Reason for Visit * Reason Onset Date Comments No Show 03/27/2017 RTN No Show #3 Encounter Details Date Type Department Care Team (Late st Contact Info) Description 03/27/2017 Telephone [facility] [address]. [address] [place] [address], [address] [place] [address] Keri Elias MD XXX RETIRED [...] encounter Miscellaneous Notes * Telephone Encounter - Collin Ty - 03/27/2017 9:57 AM CST This is just an FYI that the patient has no showed 3 appointments. When patient calls back, they will be scheduled on the virtual schedule to meet with you. COPTER PILOT documented in this encounter Plan of Treatment Not on file documented as of this encounter Visit Diagnoses Not on filedocumented in this encounter Care Teams Genetics Nurse Relationship Specialty Start Date End Date Keri Elias MD [facility] [address] [address] PCP - General Family Practice 03/12/15 11/13/18 Francisco Metz MD [address] [place] [address] PCP - General Family Practice 11/14/18 04/02/20 Karen Veliz DO 2019 [place] [address] PCP - General Family Medicine 04/03/20 Bebeto Roth MD [address] [place] [address] Orthopedics 07/09/14 Astrid Rios PA-C [address] [place] [address] Physician Airborne And Air Delivery Specialist Physician Airborne And Air Delivery Specialist - Surgical 07/09/14 Francisco Metz MD [place] [address] ANGELLA LUCIO [address] Assigned PCP 07/04/19 02/01/20 Kenton Katz MD NO INFO AVAILABLE Assigned PCP 02/02/20 08/27/20 Kenton Katz MD NO INFO AVAILABLE Assigned Endocrinology Provider 08/28/20 07/23/21 Karen Veliz DO 2019 [place] [address] Assigned PCP 08/28/20 01/14/22 documented as of this encounter
--- OUTSIDE RECORDS SUMMARY | 2023-07-12 02:27 | XMS_ITS | Clinical Summary ---
Author Organization [employer] Address [address] [place] [address] Care Team Providers Care Lamination Builder Name Role Phone Zion Sorto MD Primary Care Provider [phone] Source Comments You are receiving this document as you are listed as the primary care provider,follow-up provider, or the patient has been referred to you for consultation.This is in compliance with the Medicare and[facility] EHR Incentive Program,which states Providers who transition their patient to another setting of careor provider of care or refers their patient to another provider of care shouldprovide summary care record for each transition of care or referral. [place] Allergies Active Allergy Reactions Criticality Noted Date Comments Other Other, see comments 10/04/2011 Medications Medication Sig Dispensed Refills Start Date End Date Status pseudoephedrine ([id number]) 120 MG 12 hour release tablet Take [...] 04/07/2009, 04/07/2009 DTaP/Tdap/Td (2 - Tdap) 10/04/2021 10/05/19 12, 1982 COVID-19 Vaccine (2022-2 4 season) 2022 Influenza (Season Ended) 2023 011, 12/06/2009 Zoster/Shingles (1 of 2) 2032 HepA [...] age to complete this topic Care Teams Lamination Builder Relationship Specialty [place] [address] [place] [address] PCP - General 10/15/15
--- OUTSIDE RECORDS SUMMARY | 2023-07-12 02:27 | XMS_ITS | Encounter Summary ---
Author Organization [place] Address [address] [facility] [place] [address] Care Team Providers Care Sock And Stocking Ironer Name Role Phone Bebeto Roth MD Unavailable [phone] Astrid Rios PA-C Unavailable [phone] Francisco Metz MD Primary Care Provider Francisco Metz MD Unavailable [phone] Kenton Katz MD Unavailable Henrietta vaKaren Foster DO Primary Care Provider [phone] Kenton Katz MD Unavailable Henrietta Karen Preston DO Unavailable [phone] Encounter Details Date Type Department Care Team (Late st Contact Info) Description 01/22/2020 MyC Medical Advice M [address] [place] [address] Kristina Denise Social History Tobacco Use Types [...] COVID-19? Unable to assess 01/23/2020 7:04 AM TERRAZZO FINISHER documented as of this encounter Plan of Treatment Not on file documented as of this encounter Visit Diagnoses Not on filedocumented in this encounter Care Teams Sock And Stocking Ironer Relationship Specialty Start Date End Date Francisco Metz MD [address] [place] [address] PCP - General Family Practice 11/14/18 04/02/20 Karen Veliz DO [address] [place] [address] PCP - General Family Medicine 04/03/20 Bebeto Roth MD [address] [place] [address] Orthopedics 07/09/14 Astrid Rios PA-C [address] [place] [address] Physician Tow Bar Driver Physician Tow Bar Driver - Surgical 07/09/14 Francisco Metz MD [place] [address] [place] [address] Assigned PCP 07/04/19 02/01/20 Kenton Katz MD NO INFO AVAILABLE Assigned PCP 02/02/20 08/27/20 Kenton Katz MD NO INFO AVAILABLE Assigned Endocrinology Provider 08/28/20 07/23/21 Karen Veliz DO [address], [place] [address] Assigned PCP 08/28/20 01/14/22 documented as of this encounter
--- OUTSIDE RECORDS SUMMARY | 2023-07-12 02:27 | XMS_ITS | Referral Summary ---
Author Organization [employer] Address [address] [facility] [place] [address] Care Team Providers Care Boat Outboard Engine Mechanic Name Role Phone Bebeto Roth MD Unavailable [phone] Astrid Rios PA-C Unavailable [phone] Karen Vleiz DO Primary Care Provider [phone] Allergies Active Allergy Reactions Criticality Noted Date Comments Seasonal Allergies 10/04/2011 Medications Medication Sig Dispensed Refills Start Date End Date Status fluticasone (FLONASE) 50 MCG/ACT sprayIndications:Envi ronmental allergies [place] 1-2 sprays into both nostrils daily 16 [...] migh t be different from the original. [email or web address] Problem Noted Date Diagnosed Date S/P spinal fusion 10/23/2017 Frequent UTI 12/14/2016 Anemia, iron deficiency 12/14/2016 Pain in thoracic spine 08/07/2014 Other orthopedic aftercare(V54.89) 08/07/2014 Grief 03/13/2014 Overview: Pt's boyfriend of heroin overdose day after 2013. Seeing [facility] for therapy Dermatofibroma of left thigh 11/22/2012 Health Long Term 12/19/2011 Overview: Tier 0 DX V65.8 REPLACED WITH 16051 HEALTH HALFWAY (05/21/2012) Anxiety 12/19/2011 Congenital scoliosis [...] OB PROVIDERS 1.Keri Elias 2. Eva Hogan ([phone]) CARE PLAN ?? Consults: ?? Ultrasounds: 08/03/16 [...] Comments Blood Pressure 94/56 02/18/2019 7:21 PM NURSE ESTHETICIAN Pulse 56 02/18/2019 7:21 PM NURSE ESTHETICIAN Temperature 36.9 ??C (98.4 ??F) 02/18/2019 3:50 PM CS T Respiratory Rate 16 02/18/2019 7:21 PM NURSE ESTHETICIAN Oxygen Saturation 94% 02/18/2019 7:21 PM NURSE ESTHETICIAN Inhaled Oxygen Concentration - - Weight 73.5 kg (162 lb) 02/18/2019 3:50 PM NURSE ESTHETICIAN Height 160 cm (5' 3) 04/18/2018 8:42 AM NURSE ESTHETICIAN Body Mass Index 28.7 04/18/2018 8:42 AM NURSE ESTHETICIAN Plan of Treatment Not on file Medical Devices Implanted Type Area Yoga Coordinator Device Identifier Shelf Expiration Date Model / Serial / Lot Graft Bone Crush Canc 30ml [id number] Implanted:Qty : 1 on 10/23/2017 by Bebeto Roth MD at [facility] Bone/Tissu e/Biologic N/A: Spine Thoracic MUSCULOSKELETAL HANSEN 08/28/2020 [id number] / [id number] / Graft Bone Crush Canc 30ml [id number] Implanted:Qty : 1 on 10/23/2017 by Bebeto Roth MD at [facility] Bone/Tissu e/Biologic N/A: Spine Thoracic MUSCULOSKELETAL HANSEN 08/07/2020 [id number] / [id number] / Imp Scr Medt 5.5/6.0mm Solera 5.5x40mm Ma [id number] Implanted:Qty : 9 on 10/23/2017 by Bebeto Roth MD at [facility] Metallic Hardware/A nchor N/A: Spine Thoracic [employer] [id number] / / [id number] Imp Scr Medt 5.5/6.0mm Solera 5.5x35mm Ma [id number] Implanted:Qty : 4 on 10/23/2017 by Bebeto Roth MD at [facility] Metallic Hardware/A nchor N/A: Spine Thoracic [employer] [id number] / / Imp Scr Set Medt Solera Break Off 5.5mm Ti [id number] Implanted:Qty : 13 on 10/23/2017 by Bebeto Roth MD at [facility] Metallic Hardware/A nchor N/A: Spine Thoracic [employer] [id number] / / [id number] Imp Abhijeet Medt Solera Lined 5.6u778rw Chr [id number] Implanted:Qty : 1 on 10/23/2017 by Bebeto Roth MD at [facility] Metallic Hardware/A nchor N/A: Spine Thoracic [employer] [id number] / / [id number] Imp Scr Set [place] Medt 5.5 To 5.5mm [id number] Implanted:Qty : 2 on 10/23/2017 by Bebeto Roth MD at [facility] Metallic Hardware/A nchor N/A: Spine Thoracic [employer] [id number] / / Imp Scr [place] Legacy Breakoff Set 5.5mm Ti [id number] Implanted:Qty : 5 on 10/23/2017 by Bebeto Roth MD at [facility] Metallic Hardware/A nchor N/A: Spine Thoracic [employer]-DANEK [id number] / / Axial [place] Implanted:Qty : 2 on 10/23/2017 by Bebeto Roth MD at [facility] N/A: Spine Thoracic [employer]-DANEK [id number] / / Explanted Type Area Yoga Coordinator Device Identifier Shelf Expiration Date Model / Serial / Lot 5 Set Screws Explanted:Qty: 1 on 10/23/2017 at [facility] N/A: Spine Thoracic Advance Directives For more information, please contact: [phone] * Full Code (Latest Code Status on File) Date Activated Date Inactivated Comments 10/25/2017 10:23 AM 10/27/2017 8:35 AM * Full Code Date Activated Date Inactivated Comments 10/23/2017 2:18 PM 10/25/2017 10:23 AM * Full Code Date Activated Date Inactivated Comments 03/05/2017 11:49 AM 10/23/2017 2:18 PM Care Teams Boat Outboard Engine Mechanic Relationship Specialty Start Date End Date Karen Veliz DO [address] [place] [address] PCP - General Family Medicine 04/03/20 Bebeto Roth MD [address] [place] [address] Orthopedics 07/09/14 Astrid Rios PA-C [address] [address] Physician Waste Cotton Cleaner Physician Waste Cotton Cleaner - Surgical 07/09/14
--- OUTSIDE RECORDS SUMMARY | 2023-07-12 02:28 | XMS_ITS | Encounter Summary ---
Author Organization [place] Address [address] [place] [address] Care Team Providers Care Customer Solutions Coordinator Name Role Phone Andreas Patel MD Primary Care Provider [phone] Caitlin Ballesteros MD Primary Care Provider [phone] Lisa Dewitt DO Primary Care Provider [phone] Bebeto Roth MD Unavailable [phone] Astrid Rios PA-C Unavailable [phone] [facility] Primary Car e Provider Keri Elias MD Primary Care Provider Unavailable Francisco Metz MD Primary Care Provider Francisco Metz MD Unavailable [phone] Kenton Katz MD Unavailable Henrietta Karen Preston DO Primary Care Provider [phone] Kenton Katz MD Unavailable Henrietta Karen Preston DO Unavailable [phone] Encounter Details Date Type Department Care Team [...] of this encounter Progress Notes * [facility] ULTRASOUND - 09/22/2011 2:00 PM CDT Special Systems Technician: PATRICIO, ULTRASOUND Status: Amended, Final Encounter: 2011-09-22 14:00:00.000 Type: FM Ultrasound Active Problems Acne Vulgaris (706.1) Anxiety (300.00) Care Coordinated By; Tier 0 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 US Biophysical Profile Report Primary MD: Dr Patel /Dr Ballesteros / Dr Ontiveros Commodity Supervisor: Latesha Harley Indications: pt. not feeling baby move. Dr. Franks asked for a BPP Machine FuelMiner 5 Pro EGA 39wks by Previous US [...] By: Payton Franks ; 09/22/2011 3:03 PM SORTER/ASSAY TECH. Signature Signed By: Latesha Harley ; 09/22/2011 2:52 PM SORTER/ASSAY TECH. Signed By: Payton Franks M.D.; 09/22/2011 3:03 PM SORTER/ASSAY TECH; Author. Signed By: Aditi Boyer M.D.; 09/26/2011 2:03 PM SORTER/ASSAY TECH. ER/ASSAY TECH * [facility] - 09/22/2011 1:20 PM CDT Special Systems Technician: PATRICIO, ULTRASOUND Status: Amended, Final Encounter: 2011-09-22 13:20:00.000 Type: FM Ultrasound Active Problems Acne Vulgaris (706.1) Anxiety (300.00) Care Coordinated By; Tier 0 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 US 2nd & 3rd Trimester Ultrasound Report Primary MD: Dr Patel / Dr Ontiveros /Dr Ballesteros Commodity Supervisor: Latesha Harley Indications: recheck growth Machine: FuelMiner 5 Pro FHR: 143 bpm Fluid:Normal TJ: [...] By: August Ontiveros ; 09/26/2011 2:25 PM SORTER/ASSAY TECH. Signature Signed By: Latesha Harley ; 09/22/2011 2:41 PM SORTER/ASSAY TECH. Signed By: August Ontiveros M.D.; 09/26/2011 2:26 PM SORTER/ASSAY TECH; Author. ER/ASSAY TECH documented in this encounter Plan of Treatment Not on file documented as of this encounter Visit Diagnoses Not on filedocumented in this encounter Care Teams Customer Solutions Coordinator Relationship Specialty Start Date End Date Andreas Patel MD PCP - General 10/05/11 10/07/11 Caitlin Ballesteros MD PCP - General 10/08/11 08/11/13 [facility] Dewitt DO [facility] [address] [place] [address] PCP - General 08/12/13 07/15/14 [facility] [address] [place] [address] PCP - General 07/16/14 03/11/15 Keri Elias MD [address] [place] [address] PCP - General Family Practice 03/12/15 11/13/18 Francisco Metz MD [address] [place] [address] PCP - General Family Practice 11/14/18 04/02/20 Karen Veliz DO [address] [place] [address] PCP - General Family Medicine 04/03/20 Bebeto Roth MD [facility] [place] [address] Orthopedics 07/09/14 Astrid Rios PA-C [address] [place] [address] Physician Absorption Operator Physician Absorption Operator - Surgical 07/09/14 Francisco Metz MD [place] [address] [place] [address] Assigned PCP 07/04/19 02/01/20 Kenton Katz MD NO INFO AVAILABLE Assigned PCP 02/02/20 08/27/20 Kenton Katz MD NO INFO AVAILABLE Assigned Endocrinology Provider 08/28/20 07/23/21 Karen Veliz DO [address] [place] [address] Assigned PCP 08/28/20 01/14/22 documented as of this encounter
--- OUTSIDE RECORDS SUMMARY | 2023-07-12 02:28 | XMS_ITS | Encounter Summary ---
Author Organization [place] Address [address] [facility] [place] [address] Care Team Providers Care Medical Tech Name Role Phone Andreas Patel MD Primary Care Provider [phone] Caitlin Ballesteros MD Primary Care Provider [phone] Lisa Dewitt DO Primary Care Provider [phone] Bebeto Roth MD Unavailable [phone] Astrid Rios PA-C Unavailable [phone] [facility] Primary [facility] e Provider Keri Elias MD Primary Care Provider Unavailable Francisco Metz MD Primary Care Provider Francisco Metz MD Unavailable [phone] Kenton Katz MD Unavailable Henrietta Karen Preston DO Primary Care Provider [phone] Kenton Katz MD Unavailable Henrietta Karen Preston DO Unavailable [phone] Encounter Details Date Type Department Care Team (Late st Contact Info) Description 09/08/2011 Office Visit-P INTERFACE P DEPT August Ontiveros MD [address] [facility] [address] [place] [address] Social History Tobacco Use Types Packs/Day Years Used Date Smoking Tobacco: Never Assessed Sex and Gender Information Value Date Recorded Sex Assigned at Not on file Gender Identity Not on file Sexual Orientation Not on file documented as of this encounter Progress Notes * August Ontiveros MD - 09/08/2011 3:00 PM CDT Esthetician Makeup Artist: WestonGabinoAugust Status: Final Encounter: 2011-09-08 15:00:00.000 Type: FM Ultrasound Active Problems Acne Vulgaris (706.1) Anxiety (300.00) Care Coordinated By; Tier 0 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 US 2nd & 3rd Trimester Ultrasound Report Primary MD: Lesli/Amanda Importer Exporter: August Ontiveros Indications: size less than dates follow up Machine: Alpha Smart Systems 5 Pro FHR: 150s Fluid:Normal TJ: 14.5 [...] By: August Ontiveros M.D.; 09/09/2011 3:11 PM REVIEW SPECIALIST; Author. EW SPECIALIST documented in this encounter Plan of Treatment Not on file documented as of this encounter Visit Diagnoses Not on filedocumented in this encounter Care Teams Medical Tech Relationship Specialty Start Date End Date Andreas Patel MD PCP - General 10/05/11 10/07/11 Caitlin Ballesteros MD PCP - General 10/08/11 08/11/13 Lisa Dewitt DO [facility] [address] [place] [address] PCP - General 08/12/13 07/15/14 [facility] [address] [place] [address] PCP - General 07/16/14 03/11/15 Keri Elias MD [address] [place] [address] PCP - General Family Practice 03/12/15 11/13/18 Francisco Metz MD [address] [place] [address] PCP - General Family Practice 11/14/18 04/02/20 Karen Veliz DO [address] [place] [address] PCP - General Family Medicine 04/03/20 Bebeto Roth MD [address] [place] [address] Orthopedics 07/09/14 Astrid Rios PA-C [address] [place] [address] Physician Bookie Physician Bookie - Surgical 07/09/14 Francisco Metz MD [place] [address] [place] [address] Assigned PCP 07/04/19 02/01/20 Kenton Katz MD NO INFO AVAILABLE Assigned PCP 02/02/20 08/27/20 Kenton Katz MD NO INFO AVAILABLE Assigned Endocrinology Provider 08/28/20 07/23/21 Karen Veliz DO [address] [place] [address] Assigned PCP 08/28/20 01/14/22 documented as of this encounter
--- OUTSIDE RECORDS SUMMARY | 2023-07-12 02:28 | XMS_ITS | Encounter Summary ---
Author Organization [place] Address [address] [place] [address]. [place] [address] Care Team Providers Care Exchange Architect Name Role Phone Andreas Patel MD Primary Care Provider [phone] Caitlin Ballesteros MD Primary Care Provider [phone] Lisa Dewitt DO Primary Care Provider [phone] Bebeto Roth MD Unavailable [phone] Astrid Rios PA-C Unavailable [phone] [facility] Primary Car e Provider Keri Elias MD Primary Care Provider Unavailable Francisco Metz MD Primary Care Provider Francisco Metz MD Unavailable [phone] Kenton Katz MD Unavailable Henrietta Karen Preston DO Primary Care Provider [phone] Kenton Katz MD Unavailable Henrietta Karen Preston DO Unavailable [phone] Encounter Details Date Type Department Care Team (Late st Contact Info) Description 04/21/2011 [facility] [address] [place] [address] Radha Pierce Positive test (Primary [...] result documented in this encounter Care Teams Exchange Architect Relationship Specialty Start Date End Date Andreas Patel MD PCP - General 10/05/11 10/07/11 Caitlin Ballesteros MD PCP - General 10/08/11 08/11/13 Lisa Dewitt DO [facility] [address] [place] [address] PCP - General 08/12/13 07/15/14 [facility] [address] [place] [address] PCP - General 07/16/14 03/11/15 Keri Elias MD [address] [place] [address] PCP - General Family Practice 03/12/15 11/13/18 Francisco Metz MD [address] [place] [address] PCP - General Family Practice 11/14/18 04/02/20 Karen Veliz DO [address] [place] [address] PCP - General Family Medicine 04/03/20 Bebeto Roth MD [address] [place] [address] Orthopedics 07/09/14 Astrid Rios PA-C [facility] [address] [address] Physician Licensed Insurance Agent Physician Licensed Insurance Agent - Surgical 07/09/14 Francisco Metz MD [facility] [address] [place] [address] [place] [address] Assigned PCP 07/04/19 02/01/20 Kenton Katz MD NO INFO AVAILABLE Assigned PCP 02/02/20 08/27/20 Kenton Katz MD NO INFO AVAILABLE Assigned Endocrinology Provider 08/28/20 07/23/21 Karen Veliz DO [address] [place] [address] Assigned PCP 08/28/20 01/14/22 documented as of this encounter
--- OUTSIDE RECORDS SUMMARY | 2023-07-12 02:28 | XMS_ITS | Encounter Summary ---
Author Organization [place] Address [address] [facility] [place] [address] Care Team Providers Care Lubrication Equipment Servicer Name Role Phone Andreas Patel MD Primary Care Provider [phone] Caitlin Ballesteros MD Primary Care Provider [phone] Lisa Dewitt DO Primary Care Provider [phone] Bebeto Roth MD Unavailable [phone] Astrid Rios PA-C Unavailable [phone] [facility] Primary Car e Provider Keri Elias MD Primary Care Provider Unavailable Francisco Metz MD Primary Care Provider Francisco Metz MD Unavailable [phone] Kenton Katz MD Unavailable Henrietta Karen Preston DO Primary Care Provider + [phone] Kenton Katz MD Unavailable Henrietta Karen Preston DO Unavailable [phone] Encounter Details Date Type Department Care Team (Late st Contact Info) Description 09/01/2011 Office Visit-[facility] INTERFACE [facility] DEPT Social History Tobacco Use Types Packs/Day Years Used Date Smoking Tobacco: Never Assessed Sex and Gender Information Value Date Recorded Sex Assigned at Not on file Gender Identity Not on file Sexual Orientation Not on file documented as of this encounter Progress Notes * [facility] ULTRASOUND - 09/01/2011 2:00 PM CDT Slot Machine Mechanic: PATRICIO, ULTRASOUND Status: Amended, Final Encounter: 2011-09-01 14:00:00.000 Type: FM Ultrasound Active Problems Acne Vulgaris (706.1) Anxiety (300.00) Care Coordinated By; Tier 0 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 US 2nd & 3rd Trimester Ultrasound Report Primary MD: Dr Ballesteros Parachutist/Combatant Diver Qualified: Latesha Harley Indications: Growth on prev. u/s = 5% P: 2 Machine: Xigen 5 Pro FHR: 152 bpm Fluid:Normal TJ: [...] By: August Ontiveros ; 09/07/2011 2:51 PM SPECIAL AGENT SECRET SERVICE. Signature Signed By: Latesha Harley ; 09/01/2011 2:51 PM SPECIAL AGENT SECRET SERVICE. Signed By: August Ontiveros M.D.; 09/07/2011 2:51 PM SPECIAL AGENT SECRET SERVICE; Author. IAL AGENT SECRET SERVICE documented in this encounter Plan of Treatment Not on file documented as of this encounter Visit Diagnoses Not on filedocumented in this encounter Care Teams Lubrication Equipment Servicer Relationship Specialty Start Date End Date Andreas Patel MD PCP - General 10/05/11 10/07/11 Caitlin Ballesteros MD PCP - General 10/08/11 08/11/13 Lisa Dewitt DO [facility] [address] [place] [address] PCP - General 08/12/13 07/15/14 [facility] [address] [place] [address] PCP - General 07/16/14 03/11/15 Keri Elias MD [address] [place] [address] PCP - General Family Practice 03/12/15 11/13/18 Francisco Metz MD [address] [place] [address] PCP - General Family Practice 11/14/18 04/02/20 Karen Veliz DO [address] [place] [address] PCP - General Family Medicine 04/03/20 Bebeto Roth MD [facility] [place] [address] Orthopedics 07/09/14 Astrid Rios PA-C [address] [place] [address] Physician Section Supervisor Physician Section Supervisor - Surgical 07/09/14 Francisco Metz MD [address] [address] Assigned PCP 07/04/19 02/01/20 Kenton Katz MD NO INFO AVAILABLE Assigned PCP 02/02/20 08/27/20 Kenton Katz MD NO INFO AVAILABLE Assigned Endocrinology Provider 08/28/20 07/23/21 Karen Veliz DO [address] [place] [address] Assigned PCP 08/28/20 01/14/22 documented as of this encounter
--- OUTSIDE RECORDS SUMMARY | 2023-07-12 02:28 | XMS_ITS | Encounter Summary ---
Author Organization [place] Address [address] [place] [address]. [place] [address] Care Team Providers Care Ruffler Name Role Phone Andreas Patel MD Primary Care Provider [phone] Caitlin Ballesteros MD Primary Care Provider [phone] Lisa Dewitt DO Primary Care Provider [phone] Bebeto Roth MD Unavailable [phone] Astrid Rios PA-C Unavailable [phone] [place] [address] - [facility] Primary Car e Provider Keri Elias MD Primary Care Provider Unavailable Francisco Metz MD Primary Care Provider Francisco Metz MD Unavailable [phone] Kenton Katz MD Unavailable Henrietta Karen Preston DO Primary Care Provider + [phone] Kenton Katz MD Unavailable Henrietta Karen Preston DO Unavailable [phone] Encounter Details Date Type Department Care Team (Late st Contact Info) Description 09/30/2011 [facility] Only [facility] Imaging [address] [place] [address] Angela Holguin Social History Tobacco [...] on filedocumented in this encounter Care Teams Ruffler Relationship Specialty Start Date End Date Andreas Patel MD PCP - General 10/05/11 10/07/11 Caitlin Ballesteros MD PCP - General 10/08/11 08/11/13 Lisa Dewitt DO [facility] [address] [place] [address] PCP - General 08/12/13 07/15/14 [facility] [address] [place] [address] PCP - General 07/16/14 03/11/15 Keri Elias MD [address] [place] [address] PCP - General Family Practice 03/12/15 11/13/18 Francisco Metz MD [address] [place] [address] PCP - General Family Practice 11/14/18 04/02/20 Karen Veliz DO [address] [place] [address] PCP - General Family Medicine 04/03/20 Bebeto Roth MD [facility] [address] [address] Orthopedics 07/09/14 Astrid Rios PA-C [address] [place] [address] Physician Vp Lab Physician Vp Lab - Surgical 07/09/14 Francisco Metz MD [facility] [address] [place] [address] ANGELLA LUCIO [address] Assigned PCP 07/04/19 02/01/20 Kenton Katz MD NO INFO AVAILABLE Assigned PCP 02/02/20 08/27/20 Kenton Katz MD NO INFO AVAILABLE Assigned Endocrinology Provider 08/28/20 07/23/21 Karen Veliz DO [address] [place] [address] Assigned PCP 08/28/20 01/14/22 documented as of this encounter
--- OUTSIDE RECORDS SUMMARY | 2023-07-12 02:28 | XMS_ITS | Encounter Summary ---
Author Organization [place] Address [address] [facility] [place] [address] Care Team Providers Care Crnp Name Role Phone Andreas Patel MD Primary Care Provider [phone] Caitlin Ballesteros MD Primary Care Provider [phone] Lisa Dewitt DO Primary Care Provider [phone] Bebeto Roth MD Unavailable [phone] Astrid Rios PA-C Unavailable [phone] [place] [address] - [facility] Primary Car e Provider Keri Elias MD Primary Care Provider Unavailable Francisco Metz MD Primary Care Provider Francisco Metz MD Unavailable [phone] Kenton Katz MD Unavailable Henrietta Karen Preston DO Primary Care Provider + [phone] Kenton Katz MD Unavailable Henrietta Karen Preston DO Unavailable [phone] Encounter Details Date Type Department Care Team (Late st Contact Info) Description 06/23/2011 Office Visit-[facility] INTERFACE [facility]MP DEPT Social History Tobacco Use Types Packs/Day Years Used Date Smoking Tobacco: Never Assessed Sex and Gender Information Value Date Recorded Sex Assigned at Not on file Gender Identity Not on file Sexual Orientation Not on file documented as of this encounter Progress Notes * SY UMP ULTRASOUND - 06/23/2011 9:10 AM CDT Retail Warehouse Supervisor: PATRICIO, ULTRASOUND Status: Amended, Final Encounter: 2011-06-23 09:10:00.000 Type: FM Ultrasound Active Problems Acne Vulgaris (706.1) Anxiety (300.00) Care Coordinated By; Tier 0 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 US 2nd & 3rd Trimester Ultrasound Report Primary MD: Dr Navarro Stone Cutter: Latesha Harley Indications: survey P: 2 Machine: iFollo 5 Pro FHR: 138 bpm Fluid:Normal Placenta [...] By: August Ontiveros ; 06/27/2011 3:10 PM ABRASIVES SALES REPRESENTATIVE. Signature Signed By: Latesha Harley ; 06/23/2011 9:48 AM ABRASIVES SALES REPRESENTATIVE. Signed By: August Ontiveros M.D.; 06/27/2011 3:11 PM ABRASIVES SALES REPRESENTATIVE; Author. SIVES SALES REPRESENTATIVE documented in this encounter Plan of Treatment Not on file documented as of this encounter Visit Diagnoses Not on filedocumented in this encounter Care Teams Crnp Relationship Specialty Start Date End Date Andreas Patel MD PCP - General 10/05/11 10/07/11 Caitlin Ballesteros MD PCP - General 10/08/11 08/11/13 Lisa Dewitt DO [facility] [address] [place] [address] PCP - General 08/12/13 07/15/14 [facility] [address] [place] [address] PCP - General 07/16/14 03/11/15 Keri Elias MD [address] [place] [address] PCP - General Family Practice 03/12/15 11/13/18 Francisco Metz MD [address] [place] [address] PCP - General Family Practice 11/14/18 04/02/20 Karen Veliz DO [address] [place] [address] PCP - General Family Medicine 04/03/20 Bebeto Roth MD [address] [place] [address] [address] Orthopedics 07/09/14 Astrid Rios PA-C [address] [place] [address] Physician Cafeteria Team Leader Physician Cafeteria Team Leader - Surgical 07/09/14 Francisco Metz MD [place] [address] ANGELLA LUCIO [address] Assigned PCP 07/04/19 02/01/20 Kenton Katz MD NO INFO AVAILABLE Assigned PCP 02/02/20 08/27/20 Kenton Katz MD NO INFO AVAILABLE Assigned Endocrinology Provider 08/28/20 07/23/21 Karen Veliz DO 2019 [place] [address] Assigned PCP 08/28/20 01/14/22 documented as of this encounter
--- OUTSIDE RECORDS SUMMARY | 2023-07-12 02:28 | XMS_ITS | Encounter Summary ---
Author Organization [place] Address [address] [facility] [place] [address] Care Team Providers Care Metal Box Maker Name Role Phone Andreas Patel MD Primary Care Provider [phone] Caitlin Ballesteros MD Primary Care Provider [phone] Lisa Dewitt DO Primary Care Provider [phone] Bebeto Roth MD Unavailable [phone] Astrid Rios PA-C Unavailable [phone] [place] [address] Primary Car e Provider Keri Elias MD Primary Care Provider Unavailable Francisco Metz MD Primary Care Provider Francisco Metz MD Unavailable [phone] Kneton Katz MD Unavailable Henrietta Karen Preston DO Primary Care Provider + [phone] Kenton Katz MD Unavailable Henrietta Karen Preston DO Unavailable [phone] Encounter Details Date Type Department Care Team (Late st Contact Info) Description 09/22/2011 Office Visit-[facility] INTERFACE P DEPT Aditi Boyer MD [facility] [address] [place] [address] Social History Tobacco Use Types Packs/Day Years [...] Boyer MD - 09/22/2011 2:00 PM CDT Consumer Educator: Merlin Aditi Status: Final Encounter: 2011-09-22 14:00:00.000 Type: [facility] Hospital Note Allergies No Known Drug Allergy. [...] By: Aditi Boyer M.D.; 09/26/2011 2:06 PM SUPERVISOR PHOTOSTAT. documented in this encounter Plan of Treatment Not on file documented as of this encounter Visit Diagnoses Not on filedocumented in this encounter Care Teams Metal Box Maker Relationship Specialty Start Date End Date Andreas Patel MD PCP - General 10/05/11 10/07/11 Caitlin Ballesteros MD PCP - General 10/08/11 08/11/13 Lisa Dewitt DO [facility] [address] [place] [address] PCP - General 08/12/13 07/15/14 [facility] [address] [place] [address] PCP - General 07/16/14 03/11/15 Keri Elias MD [address] [place] [address] PCP - General Family Practice 03/12/15 11/13/18 Francisco Metz MD [address] [place] [address] PCP - General Family Practice 11/14/18 04/02/20 Karen Veliz DO [address] [place] [address] PCP - General Family Medicine 04/03/20 Bebeto Roth MD [address] [place] [address] Orthopedics 07/09/14 Astrid Rios PA-C [address] [place] [address] Physician Poultry Boner Physician Poultry Boner - Surgical 07/09/14 Francisco Metz MD [place] [address] [place] [address] ANGELLA LUCIO [address] Assigned PCP 07/04/19 02/01/20 Kenton Katz MD NO INFO AVAILABLE Assigned PCP 02/02/20 08/27/20 Kenton Katz MD NO INFO AVAILABLE Assigned Endocrinology Provider 08/28/20 07/23/21 Karen Veliz DO [address] [place] [address] Assigned PCP 08/28/20 01/14/22 documented as of this encounter
--- OUTSIDE RECORDS SUMMARY | 2023-07-12 02:28 | XMS_ITS | Encounter Summary ---
Author Organization [place] Address [address] [facility] [place] [address] Care Team Providers Care Ese Teacher Name Role Phone Andreas Patel MD Primary Care Provider [phone] Caitlin Ballesteros MD Primary Care Provider [phone] Lisa Dewitt DO Primary Care Provider [phone] Bebeto Roth MD Unavailable [phone] Astrid Rios PA-C Unavailable [phone] [facility] Primary Car e Provider Keri Elias MD Primary Care Provider Unavailable Francisco Metz MD Primary Care Provider Francisco Metz MD Unavailable [phone] Kenton Katz MD Unavailable Henrietta Karen Preston DO Primary Care Provider + [phone] Kenton Katz MD Unavailable Henrietta Karen Preston DO Unavailable [phone] Encounter Details Date Type Department Care Team [...] [facility]MP ULTRASOUND - 09/26/2011 2:07 PM CDT Shift Production Associate: ADOLFO CURRY Status: Unsigned Encounter: 2011-09-26 14:07:00.000 [...] on filedocumented in this encounter Care Teams Ese Teacher Relationship Specialty Start Date End Date Andreas Patel MD PCP - General 10/05/11 10/07/11 Caitlin Ballesteros MD PCP - General 10/08/11 08/11/13 Lisa Dewitt DO [facility] [address] [place] [address] PCP - General 08/12/13 07/15/14 [facility] [address] [place] [address] PCP - General 07/16/14 03/11/15 Keri Elias MD [address] [place] [address] PCP - General Family Practice 03/12/15 11/13/18 Francisco Metz MD [address] [place] [address] PCP - General Family Practice 11/14/18 04/02/20 Karen Veliz DO [address] [place] [address] PCP - General Family Medicine 04/03/20 Bebeto Roth MD [facility] [address] [address] Orthopedics 07/09/14 Astrid Rios PA-C [facility] [address] [address] Physician Verification Engineer Physician Verification Engineer - Surgical 07/09/14 Francisco Metz MD [place] [address] ANGELLA LUCIO [address] Assigned PCP 07/04/19 02/01/20 Kenton Katz MD NO INFO AVAILABLE Assigned PCP 02/02/20 08/27/20 Kenton Katz MD NO INFO AVAILABLE Assigned Endocrinology Provider 08/28/20 07/23/21 Karen Veliz DO 2019 [place] [address] Assigned PCP 08/28/20 01/14/22 documented as of this encounter
--- OUTSIDE RECORDS SUMMARY | 2023-07-12 02:28 | XMS_ITS | Encounter Summary ---
Author Organization [place] Address [address] [facility] [place] [address] Care Team Providers Care Barrel Marker Name Role Phone Andreas Patel MD Primary Care Provider [phone] Caitlin Ballesteros MD Primary Care Provider [phone] Lisa Dewitt DO Primary Care Provider [phone] Bebeto Roth MD Unavailable [phone] Astrid Rios PA-C Unavailable [phone] [facility] [place] Primary Car e Provider Keri Elias MD Primary Care Provider Unavailable Francisco Metz MD Primary Care Provider Francisco Metz MD Unavailable [phone] Kenton Katz MD Unavailable Henrietta Karen Preston DO Primary Care Provider + [phone] Kenton Katz MD Unavailable Henrietta Karen Preston DO Unavailable [phone] Encounter Details Date Type Department Care Team (Late st Contact Info) Description 07/14/2011 Office Visit-[facility] INTERFACE UMP DEPT Social History Tobacco Use Types Packs/Day Years Used Date Smoking Tobacco: Never Assessed Sex and Gender Information Value Date Recorded Sex Assigned at Not on file Gender Identity Not on file Sexual Orientation Not on file documented as of this encounter Progress Notes * SY UMP ULTRASOUND - 07/14/2011 9:10 AM CDT Core Sucker: PATRICIO, ULTRASOUND Status: Amended, Final Encounter: 2011-07-14 09:10:00.000 Type: FM Ultrasound Active Problems Acne Vulgaris (706.1) Anxiety (300.00) Care Coordinated By; Tier 0 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 US 2nd & 3rd Trimester Ultrasound Report Primary MD: Dr Navarro Holter Technician: Latesha Harley Indications: size less than dates P: 2 Machine: ResponseTap (formerly AdInsight) 5 Pro FHR: 143 bpm Fluid:Normal TJ: [...] By: August Ontiveros ; 07/19/2011 9:17 AM EDUCATION PROGRAM ASSOCIATE. Signature Signed By: Latesha Harley ; 07/14/2011 9:45 AM EDUCATION PROGRAM ASSOCIATE. Signed By: August Ontiveros M.D.; 07/19/2011 9:17 AM EDUCATION PROGRAM ASSOCIATE; Author. ATION PROGRAM ASSOCIATE documented in this encounter Plan of Treatment Not on file documented as of this encounter Visit Diagnoses Not on filedocumented in this encounter Care Teams Barrel Marker Relationship Specialty Start Date End Date Andreas Patel MD PCP - General 10/05/11 10/07/11 Caitlin Ballesteros MD PCP - General 10/08/11 08/11/13 Lisa Dewitt DO [facility] [address] [place] [address] PCP - General 08/12/13 07/15/14 [facility] [address] [place] [address] PCP - General 07/16/14 03/11/15 Keri Elias MD [address] [place] [address] PCP - General Family Practice 03/12/15 11/13/18 Francisco Metz MD [address] [place] [address] PCP - General Family Practice 11/14/18 04/02/20 Karen Veliz DO [address] [place] [address] PCP - General Family Medicine 04/03/20 Bebeto Roth MD [address] [address] Orthopedics 07/09/14 Astrid Rios PA-C [address] [address] Physician Steel Finisher Physician Steel Finisher - Surgical 07/09/14 Francisco Metz MD [place] [address] ANGELLA LUCIO [address] Assigned PCP 07/04/19 02/01/20 Kenton Katz MD NO INFO AVAILABLE Assigned PCP 02/02/20 08/27/20 Kenton Katz MD NO INFO AVAILABLE Assigned Endocrinology Provider 08/28/20 07/23/21 Karen Veliz DO [address] [place] [address] Assigned PCP 08/28/20 01/14/22 documented as of this encounter
--- OUTSIDE RECORDS SUMMARY | 2023-07-12 02:28 | XMS_ITS | Encounter Summary ---
Author Organization [place] Address [address] [facility] [place] [address] Care Team Providers Care Laryngologist Name Role Phone Andreas Patel MD Primary Care Provider [phone] Caitlin Ballesteros MD Primary Care Provider [phone] Lisa Dewitt DO Primary Care Provider + [phone] Bebeto Roth MD Unavailable [phone] Astrid Rios PA-C Unavailable [phone] [facility] Primary Car e Provider Keri Elias MD Primary Care Provider Unavailable Francisco Metz MD Primary Care Provider Francisco Metz MD Unavailable [phone] Kenton Katz MD Unavailable Henrietta Karen Preston DO Primary Care Provider + [phone] Kenton Katz MD Unavailable Henrietta Karen Preston DO Unavailable [phone] Encounter Details Date Type Department Care Team (Late st Contact Info) Description 09/08/2011 Office Visit-[facility] INTERFACE P DEPT Andreas Patel MD [address] [place] [address] Social History Tobacco Use Types Packs/Day Years Used Date Smoking Tobacco: Never Assessed Sex and Gender Information Value Date Recorded Sex Assigned at Not on file Gender Identity Not on file Sexual Orientation Not on file documented as of this encounter Progress Notes * Amanda Andreas - 09/08/2011 3:00 PM CDT Web Production Assistant: AmandaJason [email or web address] Status: Amended, Unsigned Encounter: 2011-09-08 15:00:00.000 Type: FM Ultrasound EDITATION SPECIALIST documented in this encounter Plan of Treatment Not on file documented as of this encounter Visit Diagnoses Not on filedocumented in this encounter Care Teams Laryngologist Relationship Specialty Start Date End Date Andreas Patel MD PCP - General 10/05/11 10/07/11 Caitlin Ballesteros MD PCP - General 10/08/11 08/11/13 Lisa Dewitt DO [facility] [address], [place] [address] PCP - General 08/12/13 07/15/14 [facility] [address] [place] [address] PCP - General 07/16/14 03/11/15 Keri Elias MD [address] [place] [address] PCP - General Family Practice 03/12/15 11/13/18 Francisco Metz MD [address] [place] [address] PCP - General Family Practice 11/14/18 04/02/20 Karen Veliz DO [address] [place] [address] PCP - General Family Medicine 04/03/20 Bebeto Roth MD [address] [place] [address] Orthopedics 07/09/14 Astrid Rios PA-C [address] [place] [address] Physician Labor Representative Physician Labor Representative - Surgical 07/09/14 Francisco Metz MD [place] [address] [place] [address] Assigned PCP 07/04/19 02/01/20 Kenton Katz MD NO INFO AVAILABLE Assigned PCP 02/02/20 08/27/20 Kenton Katz MD NO INFO AVAILABLE Assigned Endocrinology Provider 08/28/20 07/23/21 Karen Veliz DO [address] [place] [address] Assigned PCP 08/28/20 01/14/22 documented as of this encounter
[2023-07-12] MEDS: VALACYCLOVIR HCL 500 MG TABLET 1000 MG PO (02:34)
--- NOTE | 2023-07-12 02:34 | ED_ITS ---
HPI - General Adult General Chief complaint: Skin/Abscess/Foreign Body Stated complaint: shingles Time Seen by Provider: 07/12/23 01:23 Source: patient Mode of arrival: ambulatory Limitations: no limitations History of Present Illness HPI narrative: 42-year-old female presents the emergency department because of feared shingles. Reports that she had shingles along her left rib cage in the past and it feels similar. She has itching along her right forearm only. She has noticed a couple of pinpoint pink spots with some surrounding white blanching. No blisters. Has some itching and tingling that progresses up her arm slightly and into her face. She says that she goes her symptoms and is worried she could go blind. No history of ocular shingles, no history of ocular complications, is not currently experiencing any visual symptoms. She says that she admits that she is currently having a panic attack regarding this and is having a hard time clarifying her feared versus actual symptoms. When I attempt to clarify she is not having pain on the face, she is having a little bit in the right neck area. No new topical exposures. She tried taking a Benadryl with limited improvement. No other areas of the body affected except for the right forearm area. She is currently . Not immunocompromised. Her 1-year-old child is unvaccinated. She states that her past medical history is benign, no major long-term health problems. No prescription medications. ROS is negative for other generalized, skin, musculoskeletal or neurological changes. Related Data Home Medications ?Medication ?Instructions ?Recorded ?Confirmed acetaminophen 500 mg tablet 1,000 mg PO Q6H PRN 09/22/21 07/12/23 (Tylenol Extra Strength) Previous Rx's ?Medication ?Instructions ?Recorded docusate sodium 100 mg capsule 100 mg PO BID PRN Constipation 01/24/22 #100 caps ibuprofen 600 mg tablet 600 mg PO Q6H PRN #30 tabs 01/24/22 triamcinolone acetonide 0.1 % 1 applic topical BID PRN Itchy 07/12/23 topical ointment spots #30 grams valacyclovir 1 gram tablet 1,000 mg PO TID #20 tabs 07/12/23 (Valtrex) Allergies Allergy/AdvReac Type Severity Reaction Status Date / Time iron Allergy Intermediate Hives Verified 07/12/23 01:26 PFSH PFSH Medical History Tonsillitis ?J03.90 - Acute tonsillitis, unspecified (ICD-10) First degree perineal laceration ?O70.0 - First degree perineal laceration during delivery (ICD-10) Generalized anxiety disorder ?F41.1 - Generalized anxiety disorder (ICD-10) (normal spontaneous vaginal delivery) (01/24/22) ?O80 - Encounter for full-term uncomplicated delivery (ICD-10) 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 Works at [employer] No smoking, drinking alcohol, or recreational drug use. Smoking Status: Never smoker Second hand tobacco smoke exposure: No How often do you have a drink containing alcohol: never AUDIT-C Alcohol total score: 0 Non-prescribed substance use: denies use Little interest or pleasure in doing things: not at all Feeling down, depressed, or hopeless: not at all Exam Const: Vital Signs, click to edit/add: Vital Signs - 24 hr 07/12/23 01:24 Temperature 98.0 F Pulse Rate [Right Pulse Oximeter] 89 Respiratory Rate 20 Blood Pressure [Ri ght Upper Arm] 129/84 Pulse Oximetry 99 Oxygen Delivery Me thod Room Air Documenting provider has reviewed patient's vital signs: yes Other: Anxious. No signs of intoxication. HENMT: Common normals: normocephalic and oropharynx normal Head and scalp: normocephalic Face and sinus: normal facial exam Mouth: oral and palatal mucosa normal Eye: Common normals: conjunctivae normal General eye: normal appearance of both eyes Conjunctiva: conjunctiva(e) normal Neck & C-Spine: Common normals: no lymphadenopathy General: normal visual inspection Resp: Common normals: normal respiratory effort Effort & inspection: able to speak in complete sentences Extremity: Other: Right hand, wrist, elbow without signs of effusions or joint abnormalities. Range of motion is normal. The area in question are tiny macular crops along forearm with some surrounding white blanching. Absolutely no blisters. No lesions on the upper arm, neck or scalp. No lesions of course on the face. Psych: Attitude: engaged Activity/motor behavior: appropriate eye contact Insight: fair Judgement: fair Skin: Narrative: Pinpoint macular lesions in area described on right dorsal forearm only. Course Course ED Course: Patient exquisitely concerned that this could be shingles. I do not see any signs of vesicles at this time. Certainly the itching could be a sign of early shingles. We discussed the risks and benefits of prophylactic treatment versus watchful waiting. Early interventions with antivirals can dramatically reduce her risk of complications and post herpetic neuralgia. Her lesions would certainly be lower cervical if this is even shingles and therefore I am not concerned about facial nerve root involvement or ocular involvement. This was discussed with her extensively. Counseled that this is more likely a contact dermatitis, environmental allergies or something similar. Will start Valtrex but I have also recommended that she continue the Benadryl and I have prescribed some triamcinolone cream. Even with starting antivirals, if this is shingles, the lesions will continue to villalpando for another 24 hours or so helping confirm the diagnosis. She may stop the antivirals after a full 48 hours if she does not have any progression of the rash. She may continue the triamcinolone as needed. Vital Signs Vital signs: Initial Vital Signs Temperature 98.0 F 07/12/23 01:24 Temperature Source Temporal Artery Scan 07/12/23 01:24 Pulse Rate 89 07/12/23 01:24 Respiratory Rate 20 07/12/23 01:24 Blood Pressure 129/84 07/12/23 01:24 Blood Pressure Mean 99 07/12/23 01:24 Blood Pressure Position Sitting 07/12/23 01:24 Pulse Oximetry 99 05/29/24 01:24 Oxygen Delivery Method Room Air 07/12/23 01:24 Vital Signs Temperature 98.0 F 07/12/23 01:24 Pulse Rate 89 07/12/23 01:24 Respiratory Rate 20 07/12/23 01:24 Blood Pressure 129/84 07/12/23 01:24 Pulse Oximetry 99 07/12/23 01:24 Oxygen Delivery Method Room Air 07/12/23 01:24 Temperature 98.0 F 07/12/23 01:24 Pulse Rate 89 07/12/23 01:24 Respiratory Rate 20 07/12/23 01:24 Blood Pressure 129/84 07/12/23 01:24 Pulse Oximetry 99 07/12/23 01:24 Oxygen Delivery Method Room Air 07/12/23 01:24 Discharge Plan Discharge Clinical Impression: Contact dermatitis Instructions: Contact Dermatitis (DC) Additional Instructions: As we discussed, I am not certain that the rash is caused by shingles. The only way to tell for sure is to swab a blistered lesion and sent to the lab. As we discussed, starting antiviral medicine to prevent complications in case this is shingles has a lot of potential benefit and very little potential harm. I would recommend that we start antiviral medicines in case this is shingles and see how the lesions evolve. Even with starting antiviral medicine tonight, you will still have progression of the rash on your arm and potentially up to the armpit and neck area if this is shingles. More likely, this is a contact dermatitis, and environmental, plant or chemical irritant. This is very common this time of year. I would like to start you on a steroid ointment to apply to the itchy spots, you may also continue using Benadryl for itch. I would like for you to take the antiviral medicine for at least the next 48 hours, stopping if the rash does not evolve into shingles. It is okay to use Tylenol and/or ibuprofen for general discomfort also. As discussed, your rash is confined to the lower cervical dermatomes. This does not include the nerves that innervate your eye and you do not need to be concerned with risk of blindness. If things are worsening after 2 days on medications and you have new, worrisome symptoms, please make a follow-up appointment in the clinic. You may return to work following our encounter. You are not contagious unless you have active, wet lesions. Activity Level: No Restrictions Discharge Diet: Regular Prescriptions: New valacyclovir [Valtrex] 1 gram tablet 1,000 mg PO TID Qty: 20 0RF triamcinolone acetonide 0.1 % ointment 1 applic topical BID PRN (Reason: Itchy spots) Qty: 30 1RF No Action acetaminophen [Tylenol Extra Strength] 500 mg tablet 1,000 mg PO Q6H PRN docusate sodium 100 mg Capsule 100 mg PO BID PRN (Reason: Constipation) Qty: 100 0RF ibuprofen 600 mg Tablet 600 mg PO Q6H PRNQty: 30 0RF Follow Up/Referrals: Provider,Not a Local [Primary Care Provider] - Stand Alone Forms: [employer]) Info Instructions
[2023-07-12 02:35] VITALS: BP 121/74; PULSE 79; RESP 20; TEMP 36.7; O2SAT 99
== END 2023-07-12 02:36 | disposition home or self-care (01) ==
PROVIDERS: Emergency Provider Family Medicine
DX: L25.9 Unspecified contact dermatitis, unspecified cause (principal)
CPT/HCPCS: 99283; A9270

== ENCOUNTER 2023-09-19 19:48 | Emergency (ER) | payer OTHER, SELFPAY ==
[2023-09-19 20:00] VITALS: BP 133/79; PULSE 122; RESP 16; TEMP 37.6; O2SAT 97; BMI 29.2
--- NOTE | 2023-09-19 20:05 | ED.GENADULT ---
HPI - General Adult General Chief complaint: Fever Stated complaint: fever, headache, ear pain Time Seen by Provider: 09/19/23 20:05 History of Present Illness HPI narrative: Patient c/o fever/chills, BLANK, r ear pain, muscle aches, and scratchy throat since noon today. Patient took motrin at 1730 with some relief. Patient has e/o PE tubes in right ear. 43-year-old woman presenting to the emergency department with concern of headache and ear pain and feeling chilled. Think the right ear in particular is the 1 that has been in pain. Some scratchy throat as well more so maybe than painful. Symptoms really all began today. No particular exposures. No rashes. Did treat with some ibuprofen. She just wanted an evaluation to make sure that did not potentially need antibiotics for anything. Related Data Home Medications ?Medication ?Instructions ?Recorded ?Confirmed acetaminophen 500 mg tablet 1,000 mg PO Q6H PRN 09/22/21 07/12/23 (Tylenol Extra Strength) Previous Rx's ?Medication ?Instructions ?Recorded docusate sodium 100 mg capsule 100 mg PO BID PRN Constipation 01/24/22 #100 caps ibuprofen 600 mg tablet 600 mg PO Q6H PRN #30 tabs 01/24/22 triamcinolone acetonide 0.1 % 1 applic topical BID PRN Itchy 07/12/23 topical ointment spots #30 grams valacyclovir 1 gram tablet 1,000 mg PO TID #20 tabs 07/12/23 (Valtrex) Allergies Allergy/AdvReac Type Severity Reaction Status Date / Time iron Allergy Intermediate Hives Verified 07/12/23 01:26 Review of Systems Status of ROS: Reports: 6 or more systems reviewed and unremarkable except as noted in History and below [facility] Medical History Tonsillitis ?J03.90 - Acute tonsillitis, unspecified (ICD-10) First degree perineal laceration ?O70.0 - First degree perineal laceration during delivery (ICD-10) Generalized anxiety disorder ?F41.1 - Generalized anxiety disorder (ICD-10) (normal spontaneous vaginal delivery) (01/24/22) ?O80 - Encounter for full-term uncomplicated delivery (ICD-10) Recurrent loss ?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 Works at [employer]. No smoking, drinking alcohol, or recreational drug use. Smoking Status: Never smoker Second hand tobacco smoke exposure: No How often do you have a drink containing alcohol: never AUDIT-C Alcohol total score: 0 Non-prescribed substance use: denies use Little interest or pleasure in doing things: not at all Feeling down, depressed, or hopeless: not at all Exam Narrative: Exam Narrative: Pleasant. NAD. A seems little uncomfortable. No Facial swelling erythema or tenderness. TMs bilaterally appear to be absent of inflammatory changes. Chronic/indwelling PE tubes noted. Patent. Scarred right TM in particular. Lungs are clear. Heart is elevated to tachycardic rate with regular rhythm. Extremities are warm and dry without edema. Well-perfused. Cranial nerves 2-12 intact. Pupils are brisk and equal. Neck is supple with small cervical lymphadenopathy. I do not appreciate much oropharyngeal erythema. Const: Vital Signs, click to edit/add: Vital Signs - 24 hr 09/19/23 20:00 Temperature 99.7 F H Pulse Rate [Left P ulse Oximeter] 122 H Respiratory Rate 16 Blood Pressure [Ri ght Upper Arm] 133/79 Pulse Oximetry 97 Oxygen Delivery Me thod Room Air Documenting provider has reviewed patient's vital signs: yes Course Vital Signs Vital signs: Initial Vital Signs Temperature 99.7 F H 09/19/23 20:00 Temperature Source Temporal Artery Scan 09/19/23 20:00 Pulse Rate 122 H 09/19/23 20:00 Pulse Rhythm Regular 09/19/23 20:00 Respiratory Rate 16 09/19/23 20:00 Blood Pressure 133/79 09/19/23 20:00 Blood Pressure Mean 97 09/19/23 20:00 Blood Pressure Position Sitting 09/19/23 20:00 Pulse Oximetry 97 09/19/23 20:00 Oxygen Delivery Method Room Air 09/19/23 20:00 Vital Signs Temperature 99.7 F H 09/19/23 20:00 Pulse Rate 122 H 09/19/23 20:00 Respiratory Rate 16 09/19/23 20:00 Blood Pressure 133/79 09/19/23 20:00 Pulse Oximetry 97 09/19/23 20:00 Oxygen Delivery Method Room Air 09/19/23 20:00 Temperature 99.7 F H 09/19/23 20:00 Pulse Rate 122 H 09/19/23 20:00 Respiratory Rate 16 09/19/23 20:00 Blood Pressure 133/79 09/19/23 20:00 Pulse Oximetry 97 09/19/23 20:00 Oxygen Delivery Method Room Air 09/19/23 20:00 Medical Decision Making MDM Narrative Medical decision making narrative: Probably viral process NOS here would explain symptoms. I do not see evidence of meningitis other than headache. Generally appears uncomfortable but well. Considering community prevalence I think it is reasonable to screen for COVID influenza and maybe strep in her case. At this point I do not think further workup is necessary. Discussed myalgias related to viral illness. Ultimately and understandably appreciated being able to leave pending results of swabs. Swabs are negative. See patient discharge plan for further discussion Lab Data Lab results reviewed: Yes I reviewed the patient's lab results Labs: Lab Results 09/19/23 09/19/23 Range/Units 20:00 20:35 SARS-CoV-2 (PCR) Negative SARS-CoV-2 (Negative) Influenza Type A (PCR) Negative PCR FLU A (Negative) Influenza Type B (PCR) Negative PCR FLU B (Negative) RSV (PCR) Negative PCR RSV (Negative) Group A Strep DNA NOT DETECTED (Not Detectd) Discharge Plan Discharge Clinical Impression: Acute febrile illness, Myalgia, Headache Patient Disposition: Home, Self-Care Condition: Stable Additional Instructions: Focus on hydration. I will call you with the results of your swabs. Can take up to 800 mg of ibuprofen or up to 1000 mg of acetaminophen per dose. Alternative to the ibuprofen might be up to 500 mg of naproxen 2 times daily. Return/be seen for inability to control fever, fever lasting more than 5 days, intractable vomiting or diarrhea, increasing shortness of breath, sore throat to the point of difficulty managing secretions, intractable headache. Prescriptions: No Action acetaminophen [Tylenol Extra Strength] 500 mg tablet 1,000 mg PO Q6H PRN docusate sodium 100 mg Capsule 100 mg PO BID PRN (Reason: Constipation) Qty: 100 0RF ibuprofen 600 mg Tablet 600 mg PO Q6H PRNQty: 30 0RF valacyclovir [Valtrex] 1 gram tablet 1,000 mg PO TID Qty: 20 0RF triamcinolone acetonide 0.1 % ointment 1 applic topical BID PRN (Reason: Itchy spots) Qty: 30 1RF Follow Up/Referrals: Provider,Not a Local [Primary Care Provider] - Stand Alone Forms: [facility] Info Instructions
--- OUTSIDE RECORDS SUMMARY | 2023-09-19 20:34 | XMS_ITS | Encounter Summary ---
Author Organization [place] Address [address] [facility] [place] [address] Care Team Providers Care Certification And Selection Specialist Name Role Phone Bebeto Roth MD Unavailable [phone] Astrid Rios PA-C Unavailable [phone] Keri Elias MD Primary Care Provider Unavailable Francisco Metz MD Primary Care Provider Francisco Metz MD Unavailable [phone] Kenton Katz MD Unavailable Henrietta Karen Preston DO Primary Care Provider [phone] Kenton aKtz MD Unavailable Henrietta Karen Preston DO Unavailable [phone] Reason for Visit * Reason Onset Date Comments No Show 03/27/2017 RTN No Show #3 Encounter Details Date Type Department Care Team (Late st Contact Info) Description 03/27/2017 Telephone [place] [address] [place] [address], [address] [place] [address] Keri Elias MD XXX RETIRED [...] the virtual schedule to meet with you. PLEATER documented in this encounter Plan of Treatment Not on file documented as of this encounter Visit Diagnoses Not on filedocumented in this encounter Care Teams Certification And Selection Specialist Relationship Specialty Start Date End Date Keri Elias MD [facility] [place] [address] [address] PCP - General Family Practice 03/12/15 11/13/18 Francisco Metz MD [address] [place] [address] PCP - General Family Practice 11/14/18 04/02/20 Karen Veliz DO [address] [place] [address] PCP - General Family Medicine 04/03/20 Bebeto Roth MD [address] [place] [address] Orthopedics 07/09/14 Astrid Rios PA-C [address] [place] [address] Physician Production Hand Physician Production Hand - Surgical 07/09/14 Francisco Metz MD [place] [address] [address] [address] Assigned PCP 07/04/19 02/01/20 Kenton Katz MD NO INFO AVAILABLE Assigned PCP 02/02/20 08/27/20 Kenton Katz MD NO INFO AVAILABLE Assigned Endocrinology Provider 08/28/20 07/23/21 Karen Veliz DO [address] [place] [address] Assigned PCP 08/28/20 01/14/22 documented as of this encounter
--- OUTSIDE RECORDS SUMMARY | 2023-09-19 20:34 | XMS_ITS | Clinical Summary ---
Author Organization [place] Address [address] [facility] [place] [address] Care Team Providers Care Clam Dredge Boat Captain Name Role Phone Bebeto Roth MD Unavailable [phone] Astrid Rios PA-C Unavailable [phone] Karen Veliz DO Primary Care Provider [phone] Allergies Active Allergy Reactions Criticality Noted Date Comments Seasonal Allergies 10/04/2011 Medications Medication Sig Dispensed Refills Start Date End Date Status fluticasone (FLONASE) 50 MCG/ACT sprayIndications:Envi ronmental allergies Sloan 1-2 sprays into both nostrils daily 16 [...] migh t be different from the original. [email or web address] Problem Noted Date Diagnosed Date S/P spinal fusion 10/23/2017 Frequent UTI 12/14/2016 Anemia, iron deficiency 12/14/2016 Pain in thoracic spine 08/07/2014 Other orthopedic aftercare(V54.89) 08/07/2014 Grief 03/13/2014 Overview: Pt's boyfriend of heroin overdose day after 2013. Seeing [facility] for therapy Dermatofibroma of left thigh 11/22/2012 Anxiety 12/19/2011 Congenital scoliosis 12/19/2011 Scoliosis 12/19/2011 [...] OB PROVIDERS 1.Keri Elias 2. Eva Hogan ([phone]) CARE PLAN ?? Consults: ?? Ultrasounds: 08/03/16 (dating), 10/19/16 (anatomy survey) DELIVERY PLAN ?? Planned mode of delivery: ?? Delivery timing: ?? Notifications during labor: Page OB providers above ?? Post Contraception: GBS: Depo-Provera contraceptive status 04/03/2012 04/04/2013 Health Shelter 12/19/2011 07/31/2023 Overview: Tier 0 DX V65.8 REPLACED WITH [facility] (05/21/2012) Acne vulgaris 12/19/2011 04/12/2017 in multigravida 10/05/2011 [...] Comments Blood Pressure 94/56 02/18/2019 7:21 PM ATHLETIC SCOUT Pulse 56 02/18/2019 7:21 PM ATHLETIC SCOUT Temperature 36.9 ??C (98.4 ??F) 02/18/2019 3:50 PM CS T Respiratory Rate 16 02/18/2019 7:21 PM ATHLETIC SCOUT Oxygen Saturation 94% 02/18/2019 7:21 PM ATHLETIC SCOUT Inhaled Oxygen Concentration - - Weight 73.5 kg (162 lb) 02/18/2019 3:50 PM ATHLETIC SCOUT Height 160 cm (5' 3) 04/18/2018 8:42 AM ATHLETIC SCOUT Body Mass Index 28.7 04/18/2018 8:42 AM ATHLETIC SCOUT Plan of Treatment Not on file Medical Devices Implanted Type Area Afternoon Nanny Device Identifier Shelf Expiration Date Model / Serial / Lot Graft Bone Crush Canc 30ml [id number] Implanted:Qty : 1 on 10/23/2017 by Bebeto Roth MD at [facility] Bone/Tissu e/Biologic N/A: Spine Thoracic [employer]OSKELETAL HANSEN 08/28/2020 [id number] / [id number] / Graft Bone Crush Canc 30ml [id number] Implanted:Qty : 1 on 10/23/2017 by Bebeto Roth MD at [facility] Bone/Tissu e/Biologic N/A: Spine Thoracic MUSCULOSKELETAL HANSEN 08/07/2020 [id number] / [id number] / Imp Scr Medt 5.5/6.0mm Solera 5.5x40mm Ma [id number] Implanted:Qty : 9 on 10/23/2017 by Bebeto Roth MD at [facility] Metallic Hardware/A nchor N/A: Spine Thoracic [employer] [id number] / / [id number] Imp Scr Medt 5.5/6.0mm Solera 5.5x35mm Ma [id number] Implanted:Qty : 4 on 10/23/2017 by Bebeto Roth MD at [facility] Metallic Hardware/A nchor N/A: Spine Thoracic [employer] [id number] / / Imp Scr Set Medt Solera Break Off 5.5mm Ti [id number] Implanted:Qty : 13 on 10/23/2017 by Bebeto Roth MD at [facility] Metallic Hardware/A nchor N/A: Spine Thoracic [employer] [id number] / / [id number] Imp Abhijeet Medt Solera Lined 5.4c488bl Chr [id number] Implanted:Qty : 1 on 10/23/2017 by Bebeto Roth MD at [facility] Metallic Hardware/A nchor N/A: Spine Thoracic [employer] [id number] / / [id number] Imp Scr Set Jairon Medt 5.5 To 5.5mm [id number] Implanted:Qty : 2 on 10/23/2017 by Bebeto Roth MD at [facility] Metallic Hardware/A nchor N/A: Spine Thoracic [employer] [id number] / / Imp Scr Danek Legacy Breakoff Set 5.5mm Ti [id number] Implanted:Qty : 5 on 10/23/2017 by Bebeto Roth MD at [facility] Metallic Hardware/A nchor N/A: Spine Thoracic [employer] [id number] / / Axial Jairon Implanted:Qty : 2 on 10/23/2017 by Bebeto Roth MD at [facility] N/A: Spine Thoracic [employer] [id number] / / Explanted Type Area Afternoon Nanny Device Identifier Shelf Expiration Date Model / Serial / Lot 5 Set Screws Explanted:Qty: 1 on 10/23/2017 at [facility] N/A: Spine Thoracic Advance Directives For more information, please contact: [phone] * Full Code (Latest Code Status on File) Date Activated Date Inactivated Comments 10/25/2017 10:23 AM 10/27/2017 8:35 AM * Full Code Date Activated Date Inactivated Comments 10/23/2017 2:18 PM 10/25/2017 10:23 AM * Full Code Date Activated Date Inactivated Comments 03/05/2017 11:49 AM 10/23/2017 2:18 PM Care Teams Clam Dredge Boat Captain Relationship Specialty Start Date End Date Karen Veliz DO [address] [place] [address] PCP - General Family Medicine 04/03/20 Bebeto Roth MD [address] [place] [id number] Orthopedics 07/09/14 Astrid Rios PA-C [address] [address] Physician Railroader Physician Railroader - Surgical 07/09/14
--- OUTSIDE RECORDS SUMMARY | 2023-09-19 20:34 | XMS_ITS | Encounter Summary ---
Author Organization [place] Address [address] [place] [address] Care Team Providers Care Fuel Cell Engineer Name Role Phone Andreas Patel MD Primary Care Provider [phone] Caitlin Ballesteros MD Primary Care Provider [phone] Lisa Dewitt DO Primary Care Provider [phone] Bebeto Roth MD Unavailable [phone] Astrid Rios PA-C Unavailable [phone] [facility] Primary Car e Provider Keri Elias MD Primary Care Provider Unavailable Francisco Metz MD Primary Care Provider Francisco Metz MD Unavailable [phone] Kenton Katz MD Unavailable Henrietta Karen Preston DO Primary Care Provider + [phone] Kenton Katz MD Unavailable Henrietta Karen Preston DO Unavailable [phone] Encounter Details Date Type Department Care Team [...] UMP ULTRASOUND - 09/26/2011 2:07 PM CDT Electric Screw Driver Operator: ADOLFO CURRY Status: Unsigned Encounter: 2011-09-26 14:07:00.000 [...] on filedocumented in this encounter Care Teams Fuel Cell Engineer Relationship Specialty Start Date End Date Andreas Patel MD PCP - General 10/05/11 10/07/11 Caitlin Ballesteros MD PCP - General 10/08/11 08/11/13 Lisa Dewitt DO [facility] [address] [place] [address] PCP - General 08/12/13 07/15/14 [facility] [address] [place] [address] PCP - General 07/16/14 03/11/15 Keri Elias MD [address] [place] [address] PCP - General Family Practice 03/12/15 11/13/18 Francisco Metz MD [address] [place] [address] PCP - General Family Practice 11/14/18 04/02/20 Karen Veliz DO [address] [place] [address] PCP - General Family Medicine 04/03/20 Bebeto Roth MD [facility] [address] Orthopedics 07/09/14 Astrid Rios PA-C [facility] [address] [address] Physician Fiberglass Insulation Installer Physician Fiberglass Insulation Installer - Surgical 07/09/14 Francisco Metz MD [place] [address] ANGELLA LUCIO [address] Assigned PCP 07/04/19 02/01/20 Kenton Katz MD NO INFO AVAILABLE Assigned PCP 02/02/20 08/27/20 Kenton Katz MD NO INFO AVAILABLE Assigned Endocrinology Provider 08/28/20 07/23/21 Karen Veliz DO 2019 [place] [address] Assigned PCP 08/28/20 01/14/22 documented as of this encounter
--- OUTSIDE RECORDS SUMMARY | 2023-09-19 20:34 | XMS_ITS | Encounter Summary ---
Author Organization [place] Address [address] [place] [address] Care Team Providers Care Contaminated Land Consultant Name Role Phone Andreas Patel MD Primary Care Provider [phone] Caitlin Ballesteros MD Primary Care Provider [phone] Lisa Dewitt DO Primary Care Provider [phone] Bebeto Roth MD Unavailable [phone] Astrid Rios PA-C Unavailable [phone] [place] [address] - [facility] Primary Car e Provider Keri Elias MD Primary Care Provider Unavailable Francisco Metz MD Primary Care Provider Francisco Metz MD Unavailable [phone] Kenton Katz MD Unavailable Henrietta Karen Preston DO Primary Care Provider + [phone] Kenton Katz MD Unavailable Henrietta Karen Preston DO Unavailable [phone] Encounter Details Date Type Department Care Team (Late st Contact Info) Description 06/23/2011 Office Visit-[facility] INTERFACE [facility]MP DEPT Social History Tobacco Use Types Packs/Day Years Used Date Smoking Tobacco: Never Assessed Sex and Gender Information Value Date Recorded Sex Assigned at Not on file Gender Identity Not on file Sexual Orientation Not on file documented as of this encounter Progress Notes * SY UMP ULTRASOUND - 06/23/2011 9:10 AM CDT Mental Health Technician: PATRICIO, ULTRASOUND Status: Amended, Final Encounter: 2011-06-23 09:10:00.000 Type: FM Ultrasound Active Problems Acne Vulgaris (706.1) Anxiety (300.00) Care Coordinated By; Tier 0 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 US 2nd & 3rd Trimester Ultrasound Report Primary MD: Dr Navarro Community Health Outreach Worker: Latesha Harley Indications: survey P: 2 Machine: Ringly 5 Pro FHR: 138 bpm Fluid:Normal Placenta [...] By: August Ontiveros ; 06/27/2011 3:10 PM COAL WASHER. Signature Signed By: Latesha Harley ; 06/23/2011 9:48 AM COAL WASHER. Signed By: August Ontiveros M.D.; 06/27/2011 3:11 PM COAL WASHER; Author. WASHER documented in this encounter Plan of Treatment Not on file documented as of this encounter Visit Diagnoses Not on filedocumented in this encounter Care Teams Contaminated Land Consultant Relationship Specialty Start Date End Date Andreas Patel MD PCP - General 10/05/11 10/07/11 Caitlin Ballesteros MD PCP - General 10/08/11 08/11/13 Lisa Dewitt DO [facility] [address] [place] [address] PCP - General 08/12/13 07/15/14 [facility] [address] [place] [address] PCP - General 07/16/14 03/11/15 Keri Elias MD [address] [place] [address] PCP - General Family Practice 03/12/15 11/13/18 Francisco Metz MD [address] [place] [address] PCP - General Family Practice 11/14/18 04/02/20 Karen Veliz DO [address] [place] [address] PCP - General Family Medicine 04/03/20 Bebeto Roth MD [address] [address] Orthopedics 07/09/14 Astrid iRos PA-C [address] [place] [address] Physician Lay Health Advocate Physician Lay Health Advocate - Surgical 07/09/14 Francisco Metz MD [place] [address] ANGELLA LUCIO [address] Assigned PCP 07/04/19 02/01/20 Kenton Katz MD NO INFO AVAILABLE Assigned PCP 02/02/20 08/27/20 Kenton Katz MD NO INFO AVAILABLE Assigned Endocrinology Provider 08/28/20 07/23/21 Karen Veliz DO 2019 [place] [address] Assigned PCP 08/28/20 01/14/22 documented as of this encounter
--- OUTSIDE RECORDS SUMMARY | 2023-09-19 20:34 | XMS_ITS | Encounter Summary ---
Author Organization [place] Address [address] [facility] [place] [address] Care Team Providers Care Outside Salesman Name Role Phone Andreas Patel MD Primary Care Provider [phone] Caitlin Ballesteros MD Primary Care Provider [phone] Lisa Dewitt DO Primary Care Provider [phone] Bebeto Roth MD Unavailable [phone] Astrid Rios PA-C Unavailable [phone] [place] [address] - [facility] Primary Car e Provider Keri Elias MD Primary Care Provider Unavailable Francisco Metz MD Primary Care Provider Francisco Metz MD Unavailable [phone] Kenton Katz MD Unavailable Henrietta Karen Preston DO Primary Care Provider + [phone] Kenton Katz MD Unavailable Henrietta Karen Preston DO Unavailable [phone] Encounter Details Date Type Department Care Team (Late st Contact Info) Description 09/01/2011 Office Visit-P INTERFACE [facility]MP DEPT Social History Tobacco Use Types Packs/Day Years Used Date Smoking Tobacco: Never Assessed Sex and Gender Information Value Date Recorded Sex Assigned at Not on file Gender Identity Not on file Sexual Orientation Not on file documented as of this encounter Progress Notes * SY UMP ULTRASOUND - 09/01/2011 2:00 PM CDT Clay Thrower: PATRICIO, ULTRASOUND Status: Amended, Final Encounter: 2011-09-01 14:00:00.000 Type: FM Ultrasound Active Problems Acne Vulgaris (706.1) Anxiety (300.00) Care Coordinated By; Tier 0 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 US 2nd & 3rd Trimester Ultrasound Report Primary MD: Dr Ballesteros Pharmacy Technician Instructor: Latesha Harley Indications: Growth on prev. u/s = 5% P: 2 Machine: SideStripe 5 Pro FHR: 152 bpm Fluid:Normal TJ: [...] By: August Ontiveros ; 09/07/2011 2:51 PM FINANCIAL SERVICES OFFICER. Signature Signed By: Latesha Harley ; 09/01/2011 2:51 PM FINANCIAL SERVICES OFFICER. Signed By: August Ontiveros M.D.; 09/07/2011 2:51 PM FINANCIAL SERVICES OFFICER; Author. NCIAL SERVICES OFFICER documented in this encounter Plan of Treatment Not on file documented as of this encounter Visit Diagnoses Not on filedocumented in this encounter Care Teams Outside Salesman Relationship Specialty Start Date End Date Andreas Patel MD PCP - General 10/05/11 10/07/11 Caitlin Ballesteros MD PCP - General 10/08/11 08/11/13 Lisa Dewitt DO [facility] [address] [place] [address] PCP - General 08/12/13 07/15/14 [facility] 2019 [place] [address] PCP - General 07/16/14 03/11/15 Keri Elias MD [address] [place] [address] PCP - General Family Practice 03/12/15 11/13/18 Francisco Metz MD [address] [place] [address] PCP - General Family Practice 11/14/18 04/02/20 Karen Veliz DO [address] [place] [address] PCP - General Family Medicine 04/03/20 Bebeto Roth MD [facility] [place] [address] Orthopedics 07/09/14 Astrid Rios PA-C [address] [place] [address] Physician Application Integration Specialist Physician Application Integration Specialist - Surgical 07/09/14 Francisoc Metz MD [address] [address] Assigned PCP 07/04/19 02/01/20 Kenton Katz MD NO INFO AVAILABLE Assigned PCP 02/02/20 08/27/20 Kenton Katz MD NO INFO AVAILABLE Assigned Endocrinology Provider 08/28/20 07/23/21 Karen Veliz DO 2019 [place] [address] Assigned PCP 08/28/20 01/14/22 documented as of this encounter
--- OUTSIDE RECORDS SUMMARY | 2023-09-19 20:34 | XMS_ITS | Encounter Summary ---
Author Organization [place] Address [address] [facility] [place] [address] Care Team Providers Care Imaging Scheduler Name Role Phone Andreas Patel MD Primary Care Provider [phone] Caitlin Ballesteros MD Primary Care Provider [phone] Lisa Dewitt DO Primary Care Provider [phone] Bebeto Roth MD Unavailable [phone] Astrid Rios PA-C Unavailable [phone] [facility] Primary Car e Provider Keri Elias MD Primary Care Provider Unavailable Francisco Metz MD Primary Care Provider Francisco Metz MD Unavailable [phone] Kenton Katz MD Unavailable Henrietta Karen Preston DO Primary Care Provider + [phone] Kenton Katz MD Unavailable Henrietta Karen Preston DO Unavailable [phone] Encounter Details Date Type Department Care Team (Late st Contact Info) Description 07/14/2011 [facility] Social History Tobacco Use Types Packs/Day Years Used Date Smoking Tobacco: Never Assessed Sex and Gender Information Value Date Recorded Sex Assigned at Not on file Gender Identity Not on file Sexual Orientation Not on file documented as of this encounter Progress Notes * SY UMP ULTRASOUND - 07/14/2011 9:10 AM CDT Grey Goods Examiner: PATRICIO, ULTRASOUND Status: Amended, Final Encounter: 2011-07-14 09:10:00.000 Type: FM Ultrasound Active Problems Acne Vulgaris (706.1) Anxiety (300.00) Care Coordinated By; Tier 0 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 US 2nd & 3rd Trimester Ultrasound Report Primary MD: Dr Navarro Senior Master Scheduler: Latesha Harley Indications: size less than dates P: 2 Machine: newBrandAnalytics 5 Pro FHR: 143 bpm Fluid:Normal TJ: [...] By: August Ontiveros ; 07/19/2011 9:17 AM MATERIAL PLANNER. Signature Signed By: Latesha Harley ; 07/14/2011 9:45 AM MATERIAL PLANNER. Signed By: August Ontiveros M.D.; 07/19/2011 9:17 AM MATERIAL PLANNER; Author. RIAL PLANNER documented in this encounter Plan of Treatment Not on file documented as of this encounter Visit Diagnoses Not on filedocumented in this encounter Care Teams Imaging Scheduler Relationship Specialty Start Date End Date Andreas Patel MD PCP - General 10/05/11 10/07/11 Caitlin Ballesteros MD PCP - General 10/08/11 08/11/13 Lisa Dewitt DO [facility] [address] [place] [address] PCP - General 08/12/13 07/15/14 [facility] [address] [place] [address] PCP - General 07/16/14 03/11/15 Keri Elias MD [address] [place] [address] PCP - General Family Practice 03/12/15 11/13/18 Francisco Metz MD [address] [place] [address] PCP - General Family Practice 11/14/18 04/02/20 Karen Veliz DO [address] [place] [address] PCP - General Family Medicine 04/03/20 Bebeto Roth MD [address] [address] Orthopedics 07/09/14 Astrid Rios PA-C [address] [address] Physician Squad Leader Physician Squad Leader - Surgical 07/09/14 Francisco Metz MD [place] [address] ANGELLA LUCIO [address] Assigned PCP 07/04/19 02/01/20 Kenton Katz MD NO INFO AVAILABLE Assigned PCP 02/02/20 08/27/20 Kenton Katz MD NO INFO AVAILABLE Assigned Endocrinology Provider 08/28/20 07/23/21 Karen Veliz DO 2019 [place] [address] Assigned PCP 08/28/20 01/14/22 documented as of this encounter
--- OUTSIDE RECORDS SUMMARY | 2023-09-19 20:34 | XMS_ITS | Referral Summary ---
Author Organization [place] Address [address] [facility] [place] [address] Care Team Providers Care Spanish Literature Professor Name Role Phone Bebeto Roth MD Unavailable [phone] Astrid Rios PA-C Unavailable [phone] Karen Veliz DO Primary Care Provider [phone] Allergies Active Allergy Reactions Criticality Noted Date Comments Seasonal Allergies 10/04/2011 Medications Medication Sig Dispensed Refills Start Date End Date Status fluticasone (FLONASE) 50 MCG/ACT sprayIndications:Envi ronmental allergies [place] 1-2 sprays into both nostrils daily 16 [...] migh t be different from the original. [email or web address] Problem Noted Date Diagnosed Date S/P spinal [...] OB PROVIDERS 1.Keri Elias 2. Eva Hogan ([phone]) CARE PLAN ?? Consults: ?? Ultrasounds: 08/03/16 (dating), 10/19/16 (anatomy survey) DELIVERY PLAN ?? Planned mode of delivery: ?? Delivery timing: ?? Notifications during labor: Page OB providers above ?? Post Contraception: GBS: Depo-Provera contraceptive status 04/03/2012 04/04/2013 [facility] 12/19/2011 07/31/2023 Overview: Tier 0 DX V65.8 REPLACED WITH 25064 HEALTH SKILLED NURSING (05/21/2012) Acne vulgaris 12/19/2011 04/12/2017 in multigravida [...] Comments Blood Pressure 94/56 02/18/2019 7:21 PM MANAGER EMERGENCY Pulse 56 02/18/2019 7:21 PM MANAGER EMERGENCY Temperature 36.9 ??C (98.4 ??F) 02/18/2019 3:50 PM CS T Respiratory Rate 16 02/18/2019 7:21 PM MANAGER EMERGENCY Oxygen Saturation 94% 02/18/2019 7:21 PM MANAGER EMERGENCY Inhaled Oxygen Concentration - - Weight 73.5 kg (162 lb) 02/18/2019 3:50 PM MANAGER EMERGENCY Height 160 cm (5' 3) 04/18/2018 8:42 AM MANAGER EMERGENCY Body Mass Index 28.7 04/18/2018 8:42 AM MANAGER EMERGENCY Plan of Treatment Not on file Medical Devices Implanted Type Area Nurse Practitioner Hospitalist Device Identifier Shelf Expiration Date Model / Serial / Lot Graft Bone Crush Canc 30ml [id number] Implanted:Qty : 1 on 10/23/2017 by Bebeto Roth MD at [facility] Bone/Tissu e/Biologic N/A: Spine Thoracic MUSCULOSKELETAL HANSEN 08/28/2020 [id number] / [id number] / Graft Bone Crush Canc 30ml [id number] Implanted:Qty : 1 on 10/23/2017 by Bebeto Roth MD at [facility] Bone/Tissu e/Biologic N/A: Spine Thoracic MUSCULOSKELETAL HANSEN 08/07/2020 [id number] / [id number] / Imp Scr Medt 5.5/6.0mm Solera 5.5x40mm Ma [id number] Implanted:Qty : 9 on 10/23/2017 by Bebeto Roth MD at [facility] Metallic Hardware/A nchor N/A: Spine Thoracic [employer] [id number] / / [id number] Imp Scr Medt 5.5/6.0mm Solera 5.5x35mm Ma [id number] Implanted:Qty : 4 on 10/23/2017 by Bebeto Roth MD at [facility] Metallic Hardware/A nchor N/A: Spine Thoracic [employer] [id number] / / Imp Scr Set Medt Solera Break Off 5.5mm Ti [id number] Implanted:Qty : 13 on 10/23/2017 by Bebeto Roth MD at [facility] Metallic Hardware/A nchor N/A: Spine Thoracic [employer] [id number] / / [id number] Imp Abhijeet Medt Solera Lined 5.4i477tw Chr [id number] Implanted:Qty : 1 on 10/23/2017 by Bebeto Roth MD at [facility] Metallic Hardware/A nchor N/A: Spine Thoracic [employer] [id number] / / [id number] Imp Scr Set Kronenwetter Medt 5.5 To 5.5mm [id number] Implanted:Qty : 2 on 10/23/2017 by Bebeto Roth MD at [facility] Metallic Hardware/A nchor N/A: Spine Thoracic [employer] [id number] / / Imp Scr Danek Legacy Breakoff Set 5.5mm Ti [id number] Implanted:Qty : 5 on 10/23/2017 by Bebeto Roth MD at [facility] Metallic Hardware/A nchor N/A: Spine Thoracic [employer]-DANEK [id number] / / Axial Jairon Implanted:Qty : 2 on 10/23/2017 by Bebeto Roth MD at [facility] N/A: Spine Thoracic [employer]DANEK [id number] / / Explanted Type Area Nurse Practitioner Hospitalist Device Identifier Shelf Expiration Date Model / Serial / Lot 5 Set Screws Explanted:Qty: 1 on 10/23/[address] [facility] N/A: Spine Thoracic Advance Directives For more information, please contact: [phone] * Full Code (Latest Code Status on File) Date Activated Date Inactivated Comments 10/25/2017 10:23 AM 10/27/2017 8:35 AM * Full Code Date Activated Date Inactivated Comments 10/23/2017 2:18 PM 10/25/2017 10:23 AM * Full Code Date Activated Date Inactivated Comments 03/05/2017 11:49 AM 10/23/2017 2:18 PM Care Teams Spanish Literature Professor Relationship Specialty Start Date End Date Karen Veliz DO [address] [place] [address] PCP - General Family Medicine 04/03/20 Bebeto Roth MD [address] [place] [address] Orthopedics 07/09/14 Astrid Rios PA-C [address] [place] [address] Physician Home Health Outreach Coordinator Physician Home Health Outreach Coordinator - Surgical 07/09/14
--- OUTSIDE RECORDS SUMMARY | 2023-09-19 20:34 | XMS_ITS | Encounter Summary ---
Author Organization [place] Address [address] [place] [address]. [place] [address] Care Team Providers Care Jumpbasting Armhole Baster Name Role Phone Andreas Patel MD Primary Care Provider [phone] Caitlin Ballesteros MD Primary Care Provider [phone] Lisa Dewitt DO Primary Care Provider [phone] Bebeto Roth MD Unavailable [phone] Astrid Rios PA-C Unavailable [phone] [place] [address] - [facility] Primary Car e Provider Keri Elias MD Primary Care Provider Unavailable Francisco Metz MD Primary Care Provider Francisco Metz MD Unavailable [phone] Kenton Katz MD Unavailable Henrietta Karen Preston DO Primary Care Provider + [phone] Kenton Katz MD Unavailable Henrietta Karen Preston DO Unavailable [phone] Encounter Details Date Type Department Care Team (Late st Contact Info) Description 09/30/2011 [facility] Only [facility] Imaging [address] [place] [address] Angela Holguin Social History Tobacco [...] on filedocumented in this encounter Care Teams Jumpbasting Armhole Baster Relationship Specialty Start Date End Date Andreas Patel MD PCP - General 10/05/11 10/07/11 Caitlin Ballesteros MD PCP - General 10/08/11 08/11/13 Lisa Dewitt DO [facility] [address] [place] [address] PCP - General 08/12/13 07/15/14 [facility] [address] [place] [address] PCP - General 07/16/14 03/11/15 Keri Elias MD [address] [place] [address] PCP - General Family Practice 03/12/15 11/13/18 Francisco Metz MD [address] [place] [address] PCP - General Family Practice 11/14/18 04/02/20 Karen Veliz DO [address] [place] [address] PCP - General Family Medicine 04/03/20 Bebeto Roth MD [facility] [address] [address] Orthopedics 07/09/14 Astrid Rios PA-C [address] [place] [address] Physician Parachute Supervisor Physician Parachute Supervisor - Surgical 07/09/14 Francisco Metz MD [facility] [address] [place] [address] ANGELLA LUCIO [address] Assigned PCP 07/04/19 02/01/20 Kenton Katz MD NO INFO AVAILABLE Assigned PCP 02/02/20 08/27/20 Kenton Katz MD NO INFO AVAILABLE Assigned Endocrinology Provider 08/28/20 07/23/21 Karen Veliz DO [address] [place] [address] Assigned PCP 08/28/20 01/14/22 documented as of this encounter
--- OUTSIDE RECORDS SUMMARY | 2023-09-19 20:34 | XMS_ITS | Encounter Summary ---
Author Organization [place] Address [address] [place] [address] Care Team Providers Care Academic Advisor Name Role Phone Andreas Patel MD Primary Care Provider [phone] Caitlin Ballesteros MD Primary Care Provider [phone] Lisa Dewitt DO Primary Care Provider [phone] Bebeto Roth MD Unavailable [phone] Astrid Rios PA-C Unavailable [phone] [place] [address] Primary Car e Provider Keri Elias MD Primary Care Provider Unavailable Francisco Metz MD Primary Care Provider Francisco Metz MD Unavailable [phone] Kenton Katz MD Unavailable Henrietta Karen Preston DO Primary Care Provider [phone] Kenton Katz MD Unavailable Henrietta Karen Preston DO Unavailable [phone] Encounter Details Date Type Department Care Team (Late st Contact Info) Description 09/22/2011 Office Visit-[facility] INTERFACE P DEPT Aditi Boyer MD [facility] [address] [place] [address] Social History Tobacco Use Types [...] Boyer MD - 09/22/2011 2:00 PM CDT Academic Advisor: Merlin Aditi Status: Final Encounter: 2011-09-22 14:00:00.000 Type: [facility] Hospital Note Allergies No Known Drug [...] By: Aditi Boyer M.D.; 09/26/2011 2:06 PM THORACIC MEDICINE SPECIALIST. documented in this encounter Plan of Treatment Not on file documented as of this encounter Visit Diagnoses Not on filedocumented in this encounter Care Teams Academic Advisor Relationship Specialty Start Date End Date Andreas Patel MD PCP - General 10/05/11 10/07/11 Caitlin Ballesteros MD PCP - General 10/08/11 08/11/13 Lisa Dewitt DO [facility] [address] [place] [address] PCP - General 08/12/13 07/15/14 [facility] [address] [place] [address] PCP - General 07/16/14 03/11/15 Keri Elias MD [address] [place] [address] PCP - General Family Practice 03/12/15 11/13/18 Francisco Metz MD [address] [place] [address] PCP - General Family Practice 11/14/18 04/02/20 Karen Veliz DO [address] [place] [address] PCP - General Family Medicine 04/03/20 Bebeto Roth MD [address] [place] [address] Orthopedics 07/09/14 Astrid Rios PA-C [address] [place] [address] Physician Recreational Therapist Physician Recreational Therapist - Surgical 07/09/14 Francisco Metz MD [place] [address] [place] [address] ANGELLA LUCIO [address] Assigned PCP 07/04/19 02/01/20 Kenton Katz MD NO INFO AVAILABLE Assigned PCP 02/02/20 08/27/20 Kenton Katz MD NO INFO AVAILABLE Assigned Endocrinology Provider 08/28/20 07/23/21 Karen Veliz DO [address] [place] [address] Assigned PCP 08/28/20 01/14/22 documented as of this encounter
--- OUTSIDE RECORDS SUMMARY | 2023-09-19 20:34 | XMS_ITS | Encounter Summary ---
Author Organization [place] Address [address] [facility] [place] [address] Care Team Providers Care Lawyer Real Estate Name Role Phone Bebeto Roth MD Unavailable [phone] Astrid Rios PA-C Unavailable [phone] Francisco Metz MD Primary Care Provider Francisco Metz MD Unavailable [phone] Kenton Katz MD Unavailable Henrietta Karen Preston DO Primary Care Provider [phone] Kenton Katz MD Unavailable Henrietta Karen Preston DO Unavailable [phone] Reason for Visit * Reason Onset Date Comments Referral 12/25/2019 Encounter Details Date Type Department Care Team (Late st Contact Info) Description 12/25/[address] [place] [address] Francisco Metz MD [place] [address] [place] [address] Referral Social History Tobacco Use Types Packs/Day [...] referral. Would like it dated for 10/14/19 NFORMATICS SOFTWARE ENGINEER * Telephone Encounter - Cherry Viera - 12/26/2019 12:49 PM CST Will forward to PCP to address. Please advise. Cherry Reyes Brick Setter NFORMATICS SOFTWARE ENGINEER * Telephone Encounter - Rachel, May - 12/25/2019 3:[address] [facility] Family Medicine phone call message - order or referral request from patient: Order or referral being requested: Referral to Physical Therapy At Location: [facility] Additional Details: KENNY Weems states [...] 11/10 Referral only -Specialty Physical Therapy Location [address] [address] OK to leave a message on voice mail? Yes Primary language: Zimbabwean Technical Operations Specialist needed? No Call taken on December 25, 2019 at 3:35 PM by May Rachel Order request route to P SMI TRIAGE Referrals Route to P SMI (Green/Crow/Purple) CHILD WELFARE COUNSELOR NFORMATICS SOFTWARE ENGINEER documented in this encounter Plan of Treatment Not on file documented as of this encounter Visit Diagnoses Not on filedocumented in this encounter Care Teams Lawyer Real Estate Relationship Specialty Start Date End Date Francisco Metz MD [address] [place] [address] PCP - General Family Practice 11/14/18 04/02/20 Karen Veliz DO [address] [place] [address] PCP - General Family Medicine 04/03/20 Bebeto Roth MD [facility] [address] [address] Orthopedics 07/09/14 Astrid Rios PA-C [address] [address] Physician Supervisor Phosphatic Fertilizer Physician Supervisor Phosphatic Fertilizer - Surgical 07/09/14 Francisco Metz MD [place] [address] [place] [address] Assigned PCP 07/04/19 02/01/20 Kenton Katz MD NO INFO AVAILABLE Assigned PCP 02/02/20 08/27/20 Kenton Katz MD NO INFO AVAILABLE Assigned Endocrinology Provider 08/28/20 07/23/21 Karen Veliz DO [address] [place] [address] Assigned PCP 08/28/20 01/14/22 documented as of this encounter
--- OUTSIDE RECORDS SUMMARY | 2023-09-19 20:34 | XMS_ITS | Encounter Summary ---
Author Organization [place] Address [address] [facility] [place] [address] Care Team Providers Care Ms Sql Server Developer Name Role Phone Andreas Patel MD Primary Care Provider [phone] Caitlin Ballesteros MD Primary Care Provider [phone] Lisa Dewitt DO Primary Care Provider [phone] Bebeto Roth MD Unavailable [phone] Astrid Rios PA-C Unavailable [phone] [facility] Primary Car e Provider Keri Elias MD Primary Care Provider Unavailable Francisco Metz MD Primary Care Provider Francisco Metz MD Unavailable [phone] Kenton Katz MD Unavailable Henrietta Karen Preston DO Primary Care Provider + [phone] Kenton Katz MD Unavailable Henrietta Karen Preston DO Unavailable [phone] Encounter Details Date Type Department Care Team (Late st Contact Info) Description 10/06/2011 Office Visit-[facility] INTERFACE P DEPT Andreas Patel MD [address] [place] [address] Social History Tobacco Use Types Packs/Day Years [...] Andreas Patel - 10/06/2011 1:20 PM CDT Computer Technology Trainer: Andreas Patel Status: Signed Encounter: 2011-10-06 13:20:00.000 Type: FM Visit Reason For Visit This 31 year patient presents for {{{[ ]}}}[ preventive health visit ][ diabetes visit ]. {{{Bulk Plant Operator used this visit; [ Hmong ][ Mongolian ][ Georgian ][ Oromo ][ Lebanese ][ Other: ]}}} {{{Name of spanish medical interpreter [ ]. Bulk Plant Operator's Phone number: [ [phone] ][ [phone] ][ [phone] ][ [phone] ]-[ ]-[ ] }}} {{{Minor without Guardian. Verbal consent obtained from [ Mother ] [ Father ] [ ] by front end developer staff [ ]. Contact number: [ [phone] ] [ [phone] ] [ [phone] ][ [phone] ] [ ] }}} {{{PHQ2 completed and [...] OB BIOPHYS PROFILE W/O NST Principal Result Bulk Plant Operator: OSWALDO ARRIAGA PROFESSOR&& Biophysical profile. 09/30/11. [...] and agree with the findings. Performed at: [facility]. Plan {{{Patient participated in and [ agrees ][ disagrees ] with today's plan.}}} {{{Patient's family participated in and [ agree ][ disagree ] with today's plan.}}} {{{Patient and family participated in and [ agree ][ disagree ] with today's plan.}}}. Signature Signed By: Andreas Patel M.D.,Resident; 10/10/2011 11:03 AM WASHER BLANKET. documented in this encounter Plan of Treatment Not on file documented as of this encounter Visit Diagnoses Not on filedocumented in this encounter Care Teams Ms Sql Server Developer Relationship Specialty Start Date End Date Andreas Patel MD PCP - General 10/05/11 10/07/11 Caitlin Ballesteros MD PCP - General 10/08/11 08/11/13 Lisa Dewitt DO [facility] [address] [place] [address] PCP - General 08/12/13 07/15/14 [facility] [address] [place] [address] PCP - General 07/16/14 03/11/15 Keri Elias MD 2019 [place] [address] PCP - General Family Practice 03/12/15 11/13/18 Francisco Metz MD [address] [place] [address] PCP - General Family Practice 11/14/18 04/02/20 Karen Veliz DO [address] [place] [address] PCP - General Family Medicine 04/03/20 Bebeto Roth MD [facility] [address] [address] Orthopedics 07/09/14 Astrid Rios PA-C [address] [place] [address] Physician Mri Tech Physician Mri Tech - Surgical 07/09/14 Francisco Metz MD [facility] [address] [place] [address] [place] [address] Assigned PCP 07/04/19 02/01/20 Kenton Katz MD NO INFO AVAILABLE Assigned PCP 02/02/20 08/27/20 Kenton Katz MD NO INFO AVAILABLE Assigned Endocrinology Provider 08/28/20 07/23/21 Karen Veliz DO [address] [place] [address] Assigned PCP 08/28/20 01/14/22 documented as of this encounter
--- OUTSIDE RECORDS SUMMARY | 2023-09-19 20:34 | XMS_ITS | Encounter Summary ---
Author Organization [place] Address [address] [facility] [place] [address] Care Team Providers Care Chargeback Specialist Name Role Phone Bebeto Roth MD Unavailable [phone] Astrid Rios PA-C Unavailable [phone] Keri Elias MD Primary Care Provider Unavailable Francisco Metz MD Primary Care Provider Francisco Metz MD Unavailable [phone] Kenton Katz MD Unavailable Henrietta Karen Preston DO Primary Care Provider [phone] Kenton Katz MD Unavailable Henrietta Karen Preston DO Unavailable [phone] Encounter Details Date Type Department Care Team (Late st Contact Info) Description 01/18/2018 MyC Medical Advice [facility] [address] [place] [address], [address] [place], [place] [id number] Keri Elias MD XXX RETIRED XXX 03/10/2022 [...] choice. Routing to PCP. Alanna Sanders RN IO GRIP documented in this encounter Plan of Treatment Not on file documented as of this encounter Visit Diagnoses Not on filedocumented in this encounter Care Teams Chargeback Specialist Relationship Specialty Start Date End Date Keri Elias MD [facility] [address] PCP - General Family Practice 03/12/15 11/13/18 Francisco Metz MD [facility] [address] PCP - General Family Practice 11/14/18 04/02/20 Karen Veliz DO 2019 [place] [address] PCP - General Family Medicine 04/03/20 Bebeto Roth MD [facility] [address] Orthopedics 07/09/14 Astrid Rios PA-C [facility] [address] [address] Physician Electronic Health Records Specialist Physician Electronic Health Records Specialist - Surgical 07/09/14 Francisco Metz MD [place] [address] [place] [address] Assigned PCP 07/04/19 02/01/20 Kenton Katz MD NO INFO AVAILABLE Assigned PCP 02/02/20 08/27/20 Kenton Katz MD NO INFO AVAILABLE Assigned Endocrinology Provider 08/28/20 07/23/21 Karen Veliz DO 2019 [place] [address] Assigned PCP 08/28/20 01/14/22 documented as of this encounter
--- OUTSIDE RECORDS SUMMARY | 2023-09-19 20:34 | XMS_ITS | Encounter Summary ---
Author Organization [place] Address [address] [facility] [place] [address] Care Team Providers Care Product Introduction Manager Name Role Phone Bebeto Roth MD Unavailable [phone] Astrid Rios PA-C Unavailable [phone] Francisco Metz MD Primary Care Provider Francisco Metz MD Unavailable [phone] Kenton Katz MD Unavailable Henrietta vaKaren Foster DO Primary Care Provider [phone] Kenton Katz MD Unavailable Henrietta Karen Preston DO Unavailable [phone] Encounter Details Date Type Department Care Team (Late st Contact Info) Description 01/22/2020 MyC Medical Advice M [address] [place] [address] Kristina Denise Social History Tobacco Use Types [...] COVID-19? Unable to assess 01/23/2020 7:04 AM WET PROCESS ASSISTANT HEAD MILLER documented as of this encounter Plan of Treatment Not on file documented as of this encounter Visit Diagnoses Not on filedocumented in this encounter Care Teams Product Introduction Manager Relationship Specialty Start Date End Date Francisco Metz MD [address] [place] [address] PCP - General Family Practice 11/14/18 04/02/20 Karen Veliz DO [address] [place] [address] PCP - General Family Medicine 04/03/20 Bebeto Roth MD [address] [place] [address] Orthopedics 07/09/14 Astrid Rios PA-C [address] [place] [address] Physician Military Pay Clerk Physician Military Pay Clerk - Surgical 07/09/14 Francisco Metz MD [place] [address] [place] [address] Assigned PCP 07/04/19 02/01/20 Kenton Katz MD NO INFO AVAILABLE Assigned PCP 02/02/20 08/27/20 Kenton Katz MD NO INFO AVAILABLE Assigned Endocrinology Provider 08/28/20 07/23/21 Karen Veliz DO [address] [address] Assigned PCP 08/28/20 01/14/22 documented as of this encounter
--- OUTSIDE RECORDS SUMMARY | 2023-09-19 20:34 | XMS_ITS | Encounter Summary ---
Author Organization [place] Address [address] [facility] [place] [address] Care Team Providers Care Tooth Cutter Contact Wheel Name Role Phone Andreas Patel MD Primary Care Provider [phone] Caitlin Ballesteros MD Primary Care Provider [phone] Lisa Dewitt DO Primary Care Provider [phone] Bebeto Roth MD Unavailable [phone] Astrid Rios PA-C Unavailable [phone] [facility] Primary Car e Provider Keri Elias MD Primary Care Provider Unavailable Francisco Metz MD Primary Care Provider Francisco Metz MD Unavailable [phone] Kenton Katz MD Unavailable Henrietta Karen Preston DO Primary Care Provider [phone] Kenton Katz MD Unavailable Henrietta Karen Preston DO Unavailable [phone] Encounter Details Date Type Department Care Team [...] this encounter Progress Notes * [facility] ULTRASOUND - 09/22/2011 2:00 PM CDT Fiberglass Dowel Drawing Operator: PATRICIO, ULTRASOUND Status: Amended, Final Encounter: 2011-09-22 14:00:00.000 Type: FM Ultrasound Active Problems Acne Vulgaris (706.1) Anxiety (300.00) Care Coordinated By; Tier 0 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 US Biophysical Profile Report Primary MD: Dr Patel /Dr Ballesteros / Dr Ontiveros Senior Corporate Accountant: Latesha Harley Indications: pt. not feeling baby move. Dr. Franks asked for a BPP Machine [email or web address] 5 Pro EGA 39wks by Previous US [...] By: Payton Franks ; 09/22/2011 3:03 PM MANAGEMENT ASSOCIATE. Signature Signed By: Latesha Harley ; 09/22/2011 2:52 PM MANAGEMENT ASSOCIATE. Signed By: Payton Franks M.D.; 09/22/2011 3:03 PM MANAGEMENT ASSOCIATE; Author. Signed By: Aditi Boyer M.D.; 09/26/2011 2:03 PM MANAGEMENT ASSOCIATE. GEMENT ASSOCIATE * [facility] ULTRASOUND - 09/22/2011 1:20 PM CDT Fiberglass Dowel Drawing Operator: PATRICIO, ULTRASOUND Status: Amended, Final Encounter: 2011-09-22 13:20:00.000 Type: FM Ultrasound Active Problems Acne Vulgaris (706.1) Anxiety (300.00) Care Coordinated By; Tier 0 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 US 2nd & 3rd Trimester Ultrasound Report Primary MD: Dr Patel / Dr Ontiveros /Dr Ballesteros Senior Corporate Accountant: Latesha Harley Indications: recheck growth Machine: [email or web address] 5 Pro FHR: 143 bpm Fluid:Normal TJ: [...] By: August Ontiveros ; 09/26/2011 2:25 PM MANAGEMENT ASSOCIATE. Signature Signed By: Latesha Harley ; 09/22/2011 2:41 PM MANAGEMENT ASSOCIATE. Signed By: August Ontiveros M.D.; 09/26/2011 2:26 PM MANAGEMENT ASSOCIATE; Author. GEMENT ASSOCIATE documented in this encounter Plan of Treatment Not on file documented as of this encounter Visit Diagnoses Not on filedocumented in this encounter Care Teams Tooth Cutter Contact Wheel Relationship Specialty Start Date End Date Andreas Patel MD PCP - General 10/05/11 10/07/11 Caitlin Ballesteros MD PCP - General 10/08/11 08/11/13 Lisa Dewitt DO [facility] [address] [place] [address] PCP - General 08/12/13 07/15/14 [facility] [address] [place] [address] PCP - General 07/16/14 03/11/15 Keri Elias MD [address] [place] [address] PCP - General Family Practice 03/12/15 11/13/18 Francisco Metz MD [address] [place] [address] PCP - General Family Practice 11/14/18 04/02/20 Karen Veliz DO [address] [place] [address] PCP - General Family Medicine 04/03/20 Bebeto Roth MD [facility] [place] [address] Orthopedics 07/09/14 Astrid Rios PA-C [address] [place] [address] Physician Benefits Officer Physician Benefits Officer - Surgical 07/09/14 Francisco Metz MD [place] [address] [place] [address] Assigned PCP 07/04/19 02/01/20 Kenton Katz MD NO INFO AVAILABLE Assigned PCP 02/02/20 08/27/20 Kenton Katz MD NO INFO AVAILABLE Assigned Endocrinology Provider 08/28/20 07/23/21 Karen Veliz DO 2019 [place] [address] Assigned PCP 08/28/20 01/14/22 documented as of this encounter
--- OUTSIDE RECORDS SUMMARY | 2023-09-19 20:34 | XMS_ITS | Encounter Summary ---
Author Organization [place] Address [address] [facility] [place] [address] Care Team Providers Care Dioramist Name Role Phone Andreas Patel MD Primary Care Provider [phone] Caitlin Ballesteros MD Primary Care Provider [phone] Lisa Dewitt DO Primary Care Provider [phone] Bebeto Roth MD Unavailable [phone] Astrid Rios PA-C Unavailable [phone] [facility] Primary Car e Provider Keri Elias MD Primary Care Provider Unavailable Francisco Metz MD Primary Care Provider Francisco Metz MD Unavailable [phone] Kenton Katz MD Unavailable Henrietta Karen Preston DO Primary Care Provider [phone] Kenton Katz MD Unavailable Henrietta Karen Preston DO Unavailable [phone] Encounter Details Date Type Department Care Team (Late st Contact Info) Description 09/08/2011 Office Visit-[facility] INTERFACE P DEPT Andreas Patel MD [address] [place] [address] Social History Tobacco Use Types Packs/Day Years Used Date Smoking Tobacco: Never Assessed Sex and Gender Information Value Date Recorded Sex Assigned at Not on file Gender Identity Not on file Sexual Orientation Not on file documented as of this encounter Progress Notes * Amanda Andreas - 09/08/2011 3:00 PM CDT Automobile Relocation Engineer: AmandaJason [email or web address] Status: Amended, Unsigned Encounter: 2011-09-08 15:00:00.000 Type: FM Ultrasound SCHOOL COORDINATOR documented in this encounter Plan of Treatment Not on file documented as of this encounter Visit Diagnoses Not on filedocumented in this encounter Care Teams Dioramist Relationship Specialty Start Date End Date Andreas Patel MD PCP - General 10/05/11 10/07/11 Caitlin Ballesteros MD PCP - General 10/08/11 08/11/13 Lisa Dewitt DO [facility] [place] [address] PCP - General 08/12/13 07/15/14 [facility] [address] [place] [address] PCP - General 07/16/14 03/11/15 Keri Elias MD [address] [place] [address] PCP - General Family Practice 03/12/15 11/13/18 Francisco Metz MD [address] [place] [address] PCP - General Family Practice 11/14/18 04/02/20 Karen Veliz DO [address] [place] [address] PCP - General Family Medicine 04/03/20 Bebeto Roth MD [address] [place] [address] Orthopedics 07/09/14 Astrid Rios PA-C [address] [place] [address] Physician Sample Checker Physician Sample Checker - Surgical 07/09/14 Francisco Metz MD [place] [address] [place] [address] Assigned PCP 07/04/19 02/01/20 Kenton Katz MD NO INFO AVAILABLE Assigned PCP 02/02/20 08/27/20 Kenton Katz MD NO INFO AVAILABLE Assigned Endocrinology Provider 08/28/20 07/23/21 Karen Veliz DO [address] [place] [address] Assigned PCP 08/28/20 01/14/22 documented as of this encounter
--- OUTSIDE RECORDS SUMMARY | 2023-09-19 20:34 | XMS_ITS | Encounter Summary ---
Author Organization [place] Address [address] [facility] [place] [address] Care Team Providers Care Camp Counselor Name Role Phone Andreas Patel MD Primary Care Provider [phone] Caitlin Ballesteros MD Primary Care Provider [phone] Lisa Dewitt DO Primary Care Provider [phone] Bebeto Roth MD Unavailable [phone] Astrid Rios PA-C Unavailable [phone] [facility] Primary [facility] e Provider Keri Elias MD Primary Care Provider Unavailable Francisco Metz MD Primary Care Provider Francisco Metz MD Unavailable [phone] Kenton Katz MD Unavailable Henrietta Karen Preston DO Primary Care Provider + [phone] Kenton Katz MD Unavailable Henrietta Karen Preston DO Unavailable [phone] Encounter Details Date Type Department Care Team (Late st Contact Info) Description 09/08/2011 Office Visit-P INTERFACE P DEPT August Ontiveros MD [address] [facility] [address] [place] [address] Social History Tobacco Use Types Packs/Day Years Used Date Smoking Tobacco: Never Assessed Sex and Gender Information Value Date Recorded Sex Assigned at Not on file Gender Identity Not on file Sexual Orientation Not on file documented as of this encounter Progress Notes * August Ontiveros MD - 09/08/2011 3:00 PM CDT Internet Sales Manager: WestonGabinoAugust Status: Final Encounter: 2011-09-08 15:00:00.000 Type: FM Ultrasound Active Problems Acne Vulgaris (706.1) Anxiety (300.00) Care Coordinated By; Tier 0 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 US 2nd & 3rd Trimester Ultrasound Report Primary MD: Lesli/Amanda Ambulance Driver Paramedic: August Ontiveros Indications: size less than dates follow up Machine: [employer] 5 Pro FHR: 150s Fluid:Normal TJ: 14.5 [...] By: August Ontiveros M.D.; 09/09/2011 3:11 PM OILER BANDER; Author. R BANDER documented in this encounter Plan of Treatment Not on file documented as of this encounter Visit Diagnoses Not on filedocumented in this encounter Care Teams Camp Counselor Relationship Specialty Start Date End Date Andreas Patel MD PCP - General 10/05/11 10/07/11 Caitlin Ballesteros MD PCP - General 10/08/11 08/11/13 Lisa Dewitt DO [facility] [address] [place] [address] PCP - General 08/12/13 07/15/14 [facility] [address] [place] [address] PCP - General 07/16/14 03/11/15 Keri Elias MD [address] [place] [address] PCP - General Family Practice 03/12/15 11/13/18 Francisco Metz MD [address] [place] [address] PCP - General Family Practice 11/14/18 04/02/20 Karen Veliz DO [address] [place] [address] PCP - General Family Medicine 04/03/20 Bebeto Roth MD [address] [place] [address] Orthopedics 07/09/14 Astrid Rios PA-C [address] [place] [address] Physician Wrapper Layer Physician Wrapper Layer - Surgical 07/09/14 Francisco Metz MD [place] [address] [place] [address] Assigned PCP 07/04/19 02/01/20 Kenton Katz MD NO INFO AVAILABLE Assigned PCP 02/02/20 08/27/20 Kenton Katz MD NO INFO AVAILABLE Assigned Endocrinology Provider 08/28/20 07/23/21 Karen Veliz DO [address] [place] [address] Assigned PCP 08/28/20 01/14/22 documented as of this encounter
--- OUTSIDE RECORDS SUMMARY | 2023-09-19 20:34 | XMS_ITS | Encounter Summary ---
Author Organization [place] Address [address] [facility] [place] [address] Care Team Providers Care Hearing Dog Trainer Name Role Phone Bebeto Roth MD Unavailable [phone] Astrid Rios PA-C Unavailable [phone] Keri Elias MD Primary Care Provider Unavailable Francisco Metz MD Primary Care Provider Francisco Metz MD Unavailable [phone] Kenton Katz MD Unavailable Henrietta Karen Preston DO Primary Care Provider [phone] Kenton Katz MD Unavailable [place] Karen Preston DO Unavailable [phone] Reason for Visit * Reason Onset Date Comments Outreach 03/13/2017 Rtn no show #2 Encounter Details Date Type Department Care Team (Late st Contact Info) Description 03/13/2017 Telephone [facility] [address] [place] [address], [address] [place] [address] Keri Elias MD XXX RETIRED [...] some of your recently scheduled appointments. At [facility] we have a new no show policy, where if you miss too many appointments within 1 year, we may not be able to continue to schedule you. If you are unable to make your scheduled appointments, please call the clinic to cancel prior to your appointment time. ILER FURNITURE documented in this encounter Plan of Treatment Not on file documented as of this encounter Visit Diagnoses Not on filedocumented in this encounter Care Teams Hearing Dog Trainer Relationship Specialty Start Date End Date Keri Elias MD [address] [place] [address] PCP - General Family Practice 03/12/15 11/13/18 Francisco Metz MD [address] [place] [address] PCP - General Family Practice 11/14/18 04/02/20 Karen Veliz DO [address] [place] [address] PCP - General Family Medicine 04/03/20 Bebeto Roth MD [address] [place] [address] Orthopedics 07/09/14 Astrid Rios PA-C [address] [place] [address] Physician Sheet Rock Hanger Physician Sheet Rock Hanger - Surgical 07/09/14 Francisco Metz MD [place] [address] [place] [address] Assigned PCP 07/04/19 02/01/20 Kenton Kazt MD NO INFO AVAILABLE Assigned PCP 02/02/20 08/27/20 Kenton Katz MD NO INFO AVAILABLE Assigned Endocrinology Provider 08/28/20 07/23/21 Karen Veliz DO 2019 [place] [address] Assigned PCP 08/28/20 01/14/22 documented as of this encounter
--- OUTSIDE RECORDS SUMMARY | 2023-09-19 20:34 | XMS_ITS | Encounter Summary ---
Author Organization [place] Address [address] [place] [address]. [place] [address] Care Team Providers Care Taxicab Coordinator Name Role Phone Andreas Patel MD Primary Care Provider [phone] Caitlin Ballesteros MD Primary Care Provider [phone] Lisa Dewitt DO Primary Care Provider [phone] Bebeto Roth MD Unavailable [phone] Astrid Rios PA-C Unavailable [phone] [facility] Primary Car e Provider Keri Elias MD Primary Care Provider Unavailable Francisco Metz MD Primary Care Provider Francisco Metz MD Unavailable [phone] Kenton Katz MD Unavailable Henrietta Karen Preston DO Primary Care Provider + [phone] Kenton Katz MD Unavailable Henrietta Karen Preston DO Unavailable [phone] Encounter Details Date Type Department Care Team (Late st Contact Info) Description 04/21/2011 [facility] Only [facility] [address] [place] [address] Radha Pierce Positive test (Primary [...] result documented in this encounter Care Teams Taxicab Coordinator Relationship Specialty Start Date End Date Andreas Patel MD PCP - General 10/05/11 10/07/11 Caitlin Ballesteros MD PCP - General 10/08/11 08/11/13 Lisa Dewitt DO [facility] [address] [place] [address] PCP - General 08/12/13 07/15/14 [facility] [address] [place] [address] PCP - General 07/16/14 03/11/15 Keri Elias MD [address] [place] [address] PCP - General Family Practice 03/12/15 11/13/18 Francisco Metz MD [address] [place] [address] PCP - General Family Practice 11/14/18 04/02/20 Karen Veliz DO [address] [place] [address] PCP - General Family Medicine 04/03/20 Bebeto Roth MD [address] [place] [address] Orthopedics 07/09/14 Astrid Rios PA-C [facility] [address] [address] Physician Tube Room Cashier Physician Tube Room Cashier - Surgical 07/09/14 Francisco Metz MD [facility] [address] [place] [address] ANGELLA LUCIO [address] Assigned PCP 07/04/19 02/01/20 Kenton Katz MD NO INFO AVAILABLE Assigned PCP 02/02/20 08/27/20 Kenton Katz MD NO INFO AVAILABLE Assigned Endocrinology Provider 08/28/20 07/23/21 Karen Veliz DO [address] [place] [address] Assigned PCP 08/28/20 01/14/22 documented as of this encounter
--- OUTSIDE RECORDS SUMMARY | 2023-09-19 20:34 | XMS_ITS | Clinical Summary ---
Author Organization [facility] Address [address] [place] [address] Care Team Providers Care Correctional Sergeant Name Role Phone Zion Sorto MD Primary Care Provider Source Comments You are receiving this document as you are listed as the primary care provider,follow-up provider, or the patient has been referred to you for consultation.This is in compliance with the Medicare and[facility] Cent[facility] EHR Incentive Program,which states Providers who transition their patient to another setting of careor provider of care or refers their patient to another provider of care shouldprovide summary care record for each transition of care or referral. [employer] Allergies Active Allergy Reactions Criticality Noted Date Comments Other Other, see comments 10/04/2011 Medications Medication Sig Dispensed Refills Start Date End Date Status pseudoephedrine ([id number]) 120 MG 12 hour release tablet Take [...] 1982 Hep C Screening (Preventive Services) 1982 Mammogram 1982 HIV Screening (Preventive Services) 1998 Adult Preventive Visit 2000 HepB (1) 2001 HPV Vaccine (2 - 3-dose series) 05/05/2009 04/07/2009, 04/07/2009 DTaP/Tdap/Td (2 - Tdap) 10/04/2021 10/05/19, 1982 COVID-19 Vaccine ( - 2022-2 4 season) 2022 Influenza (#1) 2023 12/16/2010, 12/06/2009 Zoster/Shingles (1 of 2) 2032 [...] age to complete this topic Care Teams Correctional Sergeant Relationship Specialty [place] [address] [place] [address] PCP - General 10/15/15
[2023-09-19 20:43] LABS: PCR FLU A Negative PCR FLU A (Negative); PCR FLU B Negative PCR FLU B (Negative); PCR RSV Negative PCR RSV (Negative); SARS PCR* Negative SARS-CoV-2 (Negative)
[2023-09-19 21:02] LABS: Strep A DNA Probe* NOT DETECTED (Not Detectd)
== END 2023-09-19 20:45 | disposition home or self-care (01) ==
LOC: ED 20:32
PROVIDERS: Emergency Provider Family Medicine
DX: M79.10 Myalgia, unspecified site (principal); R51.9 Headache, unspecified
CPT/HCPCS: 87631; 87651; 99284

== ENCOUNTER 2023-11-17 00:05 | Emergency (ER) | payer OTHER, SELFPAY ==
[2023-11-17 00:10] VITALS: BP 116/77; PULSE 81; RESP 16; TEMP 37.1; O2SAT 98; BMI 23.9
[2023-11-17 01:09] LABS: Basophils Absolute Auto 0.02 K/uL (0.00-0.30); Basophils Percent Auto 0.3 % (0.0-3.0); Eosinophils Absolute Auto 0.14 K/uL (0.00-0.50); Eosinophils Percent Auto 2.1 % (0.0-7.0); Hematocrit 39.9 % (33.0-51.0); Hemoglobin* 12.8 gm/dL (12.0-16.0); Immature Granulocytes Abs Auto 0.04 K/uL (0.00-0.30); Immature Granulocytes Pct Auto 0.6 %; Lymphocytes Absolute Auto 1.98 K/uL (0.90-2.90); Lymphocytes Percent Auto 29.5 % (20-44); Mean Corpuscular HGB Conc 32 gm/dL (32-36); Mean Corpuscular Hemoglobin 26 pg (26-34); Mean Corpuscular Volume 82 fL (80-100); Monocytes Percent Auto 8.6 % (0.0-11.0); Neutrophils Absolute Auto 3.95 K/uL (1.7-7.0); Neutrophils Percent Auto 58.9 % (42.0-72.0); Platelet Count* 217 K/uL (140-440); RDW Coefficient of Variation % 12.5 % (11.5-15.5); Red Blood Count 4.84 m/uL (4.00-5.20); White Blood Count* 6.71 K/uL (4.50-11.00)
[2023-11-17 01:13] LABS: Slide Review Reflex No
--- OUTSIDE RECORDS SUMMARY | 2023-11-17 01:16 | XMS_ITS | Encounter Summary ---
Author Organization [place] Address [address] [facility] [place] [address] Care Team Providers Care Application Software Developer Name Role Phone Andreas Patel MD Primary Care Provider [phone] Caitlin Ballesteros MD Primary Care Provider [phone] Lisa Dewitt DO Primary Care Provider [phone] Bebeto Roth MD Unavailable [phone] Astrid Rios PA-C Unavailable [phone] [facility] Primary Car e Provider Keri Elias MD Primary Care Provider Unavailable Francisco Metz MD Primary Care Provider Francisco Metz MD Unavailable [phone] Kenton Katz MD Unavailable Henrietta Karen Preston DO Primary Care Provider + [phone] Kenton Katz MD Unavailable Henrietta Karen Preston DO Unavailable [phone] Encounter Details Date Type Department Care Team [...] [facility]MP ULTRASOUND - 09/26/2011 2:07 PM CDT Senior Loan Officer: ADOLFO CURRY Status: Unsigned Encounter: 2011-09-26 14:07:00.000 [...] filedocumented in this encounter Care Teams Application Software Developer Relationship Specialty Start Date End Date Andreas Patel MD PCP - General 10/05/11 10/07/11 Caitlin Ballesteros MD PCP - General 10/08/11 08/11/13 Lisa Dewitt DO [facility] [address] [place] [address] PCP - General 08/12/13 07/15/14 [facility] [address] [place] [address] PCP - General 07/16/14 03/11/15 Keri Elias MD [address] [place] [address] PCP - General Family Practice 03/12/15 11/13/18 Francisco Metz MD [address] [place] [address] PCP - General Family Practice 11/14/18 04/02/20 Karen Veliz DO [address] [place] [address] PCP - General Family Medicine 04/03/20 Bebeto Roth MD [facility] [address] [address] Orthopedics 07/09/14 Astrid Rios PA-C [facility] [address] [address] Physician Machine Ii Engraver Physician Machine Ii Engraver - Surgical 07/09/14 Francisco Metz MD [place] [address] ANGELLA LUCIO [address] Assigned PCP 07/04/19 02/01/20 Kenton Katz MD NO INFO AVAILABLE Assigned PCP 02/02/20 08/27/20 Kenton Katz MD NO INFO AVAILABLE Assigned Endocrinology Provider 08/28/20 07/23/21 Karen Veilz DO 2019 [place] [address] Assigned PCP 08/28/20 01/14/22 documented as of this encounter
--- OUTSIDE RECORDS SUMMARY | 2023-11-17 01:16 | XMS_ITS | Referral Summary ---
Author Organization [place] Address [address] [place] [address] Care Team Providers Care Long Term Name Role Phone Bebeto Roth MD Unavailable [phone] Astrid Rios PA-C Unavailable [phone] Karen Veliz DO Primary Care Provider [phone] Allergies Active Allergy Reactions Criticality Noted Date Comments Seasonal Allergies 10/04/2011 Medications Medication Sig Dispensed Refills Start Date End Date Status fluticasone (FLONASE) 50 MCG/ACT sprayIndications:Envi ronmental allergies [place] 1-2 sprays into both nostrils daily 16 [...] migh t be different from the original. [email or web address] Problem Noted Date Diagnosed Date S/P spinal [...] OB PROVIDERS 1.Keri Elias 2. Eva Hogan ([phone]) CARE PLAN ?? Consults: ?? Ultrasounds: 08/03/16 (dating), 10/19/16 (anatomy survey) DELIVERY PLAN ?? Planned mode of delivery: ?? Delivery timing: ?? Notifications during labor: Page OB providers above ?? Post Contraception: GBS: Depo-Provera contraceptive status 04/03/2012 04/04/2013 [facility] 12/19/2011 07/31/2023 Overview: Tier 0 DX V65.8 REPLACED WITH 60076 HEALTH CORRECTION (05/21/2012) Acne vulgaris 12/19/2011 04/12/2017 in multigravida [...] Comments Blood Pressure 94/56 02/18/2019 7:21 PM INPATIENT SERVICES RN Pulse 56 02/18/2019 7:21 PM INPATIENT SERVICES RN Temperature 36.9 ??C (98.4 ??F) 02/18/2019 3:50 PM CS T Respiratory Rate 16 02/18/2019 7:21 PM INPATIENT SERVICES RN Oxygen Saturation 94% 02/18/2019 7:21 PM INPATIENT SERVICES RN Inhaled Oxygen Concentration - - Weight 73.5 kg (162 lb) 02/18/2019 3:50 PM INPATIENT SERVICES RN Height 160 cm (5' 3) 04/18/2018 8:42 AM INPATIENT SERVICES RN Body Mass Index 28.7 04/18/2018 8:42 AM INPATIENT SERVICES RN Plan of Treatment Not on file Medical Devices Implanted Type Area Laborer Bituminous Paving Device Identifier Shelf Expiration Date Model / Serial / Lot Graft Bone Crush Canc 30ml [id number] Implanted:Qty : 1 on 10/23/2017 by Bebeto Roth MD at [facility] Bone/Tissu e/Biologic N/A: Spine Thoracic MUSCULOSKELETAL HANSEN 08/28/2020 [id number] / [id number] / Graft Bone Crush Canc 30ml [id number] Implanted:Qty : 1 on 10/23/2017 by Bebeto Roth MD at [facility] Bone/Tissu e/Biologic N/A: Spine Thoracic MUSCULOSKELETAL HANSEN 08/07/2020 [id number] / [id number] / Imp Scr Medt 5.5/6.0mm Solera 5.5x40mm Ma [id number] Implanted:Qty : 9 on 10/23/2017 by Bebeto Roth MD at [facility] Metallic Hardware/A nchor N/A: Spine Thoracic [employer] [id number] / / [id number] Imp Scr Medt 5.5/6.0mm Solera 5.5x35mm Ma [id number] Implanted:Qty : 4 on 10/23/2017 by Bebeto Roth MD at [facility] Metallic Hardware/A nchor N/A: Spine Thoracic [employer] [id number] / / Imp Scr Set Medt Solera Break Off 5.5mm Ti [id number] Implanted:Qty : 13 on 10/23/2017 by Bebeto Roth MD at [facility] Metallic Hardware/A nchor N/A: Spine Thoracic [employer] [id number] / / [id number] Imp Abhijeet Medt Solera Lined 5.0f991pl Chr [id number] Implanted:Qty : 1 on 10/23/2017 by Bebeto Roth MD at [facility] Metallic Hardware/A nchor N/A: Spine Thoracic [employer] [id number] / / [id number] Imp Scr Set Ochelata Medt 5.5 To 5.5mm [id number] Implanted:Qty : 2 on 10/23/2017 by Bebeto Roth MD at [facility] Metallic Hardware/A nchor N/A: Spine Thoracic [employer] [id number] / / Imp Scr Danek Legacy Breakoff Set 5.5mm Ti [id number] Implanted:Qty : 5 on 10/23/2017 by Bebeto Roth MD at [facility] Metallic Hardware/A nchor N/A: Spine Thoracic [employer]-DANEK [id number] / / Axial Ochelata Implanted:Qty : 2 on 10/23/2017 by Bebeto Roth MD at [facility] N/A: Spine Thoracic [employer]-DANEK [id number] / / Explanted Type Area Laborer Bituminous Paving Device Identifier Shelf Expiration Date Model / Serial / Lot 5 Set Screws Explanted:Qty: 1 on 10/23/2017 at [facility] N/A: Spine Thoracic Advance Directives For more information, please contact: [phone] * Full Code (Latest Code Status on File) Date Activated Date Inactivated Comments 10/25/2017 10:23 AM 10/27/2017 8:35 AM * Full Code Date Activated Date Inactivated Comments 10/23/2017 2:18 PM 10/25/2017 10:23 AM * Full Code Date Activated Date Inactivated Comments 03/05/2017 11:49 AM 10/23/2017 2:18 PM Care Teams Long Term Relationship Specialty Start Date End Date Karen Veliz DO [address] [place] [address] PCP - General Family Medicine 04/03/20 Bebeto Roth MD [address] [place] [address] Orthopedics 07/09/14 Astrid Rios PA-C [address] [place] [address] Physician Currency Exchange Specialist Physician Currency Exchange Specialist - Surgical 07/09/14
--- OUTSIDE RECORDS SUMMARY | 2023-11-17 01:16 | XMS_ITS | Encounter Summary ---
Author Organization [place] Address [address] [facility] [place] [address] Care Team Providers Care Saute Chef Name Role Phone Andreas Patel MD Primary Care Provider [phone] Caitlin Ballesteros MD Primary Care Provider [phone] Lisa Dewitt DO Primary Care Provider [phone] Bebeto Roth MD Unavailable [phone] Astrid Rios PA-C Unavailable [phone] [facility] Primary Car e Provider Keri Elias MD Primary Care Provider Unavailable Francisco Metz MD Primary Care Provider Francisco Metz MD Unavailable [phone] Kenton Katz MD Unavailable Henrietta Karen Preston DO Primary Care Provider [phone] Kenton Katz MD Unavailable Henrietta Karen Preston DO Unavailable [phone] Encounter Details Date Type Department Care Team [...] of this encounter Progress Notes * SY [facility] ULTRASOUND - 09/22/2011 2:00 PM CDT Rug Shampooer: PATRICIO, ULTRASOUND Status: Amended, Final Encounter: 2011-09-22 14:00:00.000 Type: FM Ultrasound Active Problems Acne Vulgaris (706.1) Anxiety (300.00) Care Coordinated By; Tier 0 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 US Biophysical Profile Report Primary MD: Dr Patel /Dr Ballesteros / Dr Ontiveros Automobile Tire Builder: Latesha Harley Indications: pt. not feeling baby move. Dr. Franks asked for a BPP Machine Wedding Reality 5 Pro EGA 39wks by Previous US [...] By: Payton Franks ; 09/22/2011 3:03 PM CLOTH CARRIER. Signature Signed By: Latesha Harley ; 09/22/2011 2:52 PM CLOTH CARRIER. Signed By: Payton Franks M.D.; 09/22/2011 3:03 PM CLOTH CARRIER; Author. Signed By: Aditi Boyer M.D.; 09/26/2011 2:03 PM CLOTH CARRIER. H CARRIER * ERMA [facility] ULTRASOUND - 09/22/2011 1:20 PM CDT Rug Shampooer: PATRICIO, ULTRASOUND Status: Amended, Final Encounter: 2011-09-22 13:20:00.000 Type: FM Ultrasound Active Problems Acne Vulgaris (706.1) Anxiety (300.00) Care Coordinated By; Tier 0 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 US 2nd & 3rd Trimester Ultrasound Report Primary MD: Dr Patel / Dr Ontiveros /Dr Ballesteros Automobile Tire Builder: Latesha Harley Indications: recheck growth Machine: Wedding Reality 5 Pro FHR: 143 bpm Fluid:Normal TJ: [...] By: August Ontiveros ; 09/26/2011 2:25 PM CLOTH CARRIER. Signature Signed By: Latesha Harley ; 09/22/2011 2:41 PM CLOTH CARRIER. Signed By: August Ontiveros M.D.; 09/26/2011 2:26 PM CLOTH CARRIER; Author. H CARRIER documented in this encounter Plan of Treatment Not on file documented as of this encounter Visit Diagnoses Not on filedocumented in this encounter Care Teams Saute Chef Relationship Specialty Start Date End Date Andreas Patel MD PCP - General 10/05/11 10/07/11 Caitlin Ballesteros MD PCP - General 10/08/11 08/11/13 Lisa Dewitt DO [facility] [address] [place] [address] PCP - General 08/12/13 07/15/14 [facility] [address] [place] [address] PCP - General 07/16/14 03/11/15 Keri Elias MD [address] [place] [address] PCP - General Family Practice 03/12/15 11/13/18 Francisco Metz MD [address] [place] [address] PCP - General Family Practice 11/14/18 04/02/20 Karen Veliz DO [address] [place] [address] PCP - General Family Medicine 04/03/20 Bebeto Roth MD [facility] [place] [address] Orthopedics 07/09/14 Astrid Rios PA-C [address] [place] [address] Physician Clock Assembler Physician Clock Assembler - Surgical 07/09/14 Francisco Metz MD [place] [address] ANGELLA LUCIO [address] Assigned PCP 07/04/19 02/01/20 Kenton Katz MD NO INFO AVAILABLE Assigned PCP 02/02/20 08/27/20 Kenton Katz MD NO INFO AVAILABLE Assigned Endocrinology Provider 08/28/20 07/23/21 Karen Veliz DO 2019 [place] [address] Assigned PCP 08/28/20 01/14/22 documented as of this encounter
--- OUTSIDE RECORDS SUMMARY | 2023-11-17 01:16 | XMS_ITS | Encounter Summary ---
Author Organization [place] Address [address] [facility] [place] [address] Care Team Providers Care Sat Instructor Name Role Phone Bebeto Roth MD Unavailable [phone] Astrid Rios PA-C Unavailable [phone] Francisco Metz MD Primary Care Provider Francisco Metz MD Unavailable [phone] Kenton Katz MD Unavailable Henrietta vaKaren Foster DO Primary Care Provider [phone] Kenton Katz MD Unavailable Henrietta Karen Preston DO Unavailable [phone] Encounter Details Date Type Department Care Team (Late st Contact Info) Description 01/22/2020 MyC Medical Advice M [address] [place] [address] Kristina Denise Social History Tobacco Use Types [...] COVID-19? Unable to assess 01/23/2020 7:04 AM NUCLEAR POWERPLANT MECHANIC documented as of this encounter Plan of Treatment Not on file documented as of this encounter Visit Diagnoses Not on filedocumented in this encounter Care Teams Sat Instructor Relationship Specialty Start Date End Date Francisco Metz MD [address] [place] [address] PCP - General Family Practice 11/14/18 04/02/20 Karen Veliz DO [address] [place] [address] PCP - General Family Medicine 04/03/20 Bebeto Roth MD [address] [place] [address] Orthopedics 07/09/14 Astrid Rios PA-C [address] [place] [address] Physician Cub Reporter Physician Cub Reporter - Surgical 07/09/14 Francisco Metz MD [place] [address] [place] [address] Assigned PCP 07/04/19 02/01/20 Kenton Katz MD NO INFO AVAILABLE Assigned PCP 02/02/20 08/27/20 Kenton Katz MD NO INFO AVAILABLE Assigned Endocrinology Provider 08/28/20 07/23/21 Karen Veliz DO [address], [place] [address] Assigned PCP 08/28/20 01/14/22 documented as of this encounter
--- OUTSIDE RECORDS SUMMARY | 2023-11-17 01:16 | XMS_ITS | Encounter Summary ---
Author Organization [place] Address [address] [facility] [place] [address] Care Team Providers Care Ware Dresser Name Role Phone Andreas Patel MD Primary Care Provider [phone] Caitlin Ballesteros MD Primary Care Provider [phone] Lisa Dewitt DO Primary Care Provider [phone] Bebeto Roth MD Unavailable [phone] Astrid Rios PA-C Unavailable [phone] [facility] Primary Car e Provider Keri Elias MD Primary Care Provider Unavailable Francisco Metz MD Primary Care Provider Francisco Metz MD Unavailable [phone] Kenton Katz MD Unavailable Henrietta Karen Preston DO Primary Care Provider [phone] Kenton Katz MD Unavailable Henrietta Karen Preston DO Unavailable [phone] Encounter Details Date Type Department Care Team (Late st Contact Info) Description 10/06/2011 Office Visit-[facility] INTERFACE P DEPT Andreas Patel MD [address] [place] [address] Social History Tobacco Use Types Packs/Day Years [...] Andreas Patel - 10/06/2011 1:20 PM CDT Manager Inventory: Andreas Patel Status: Signed Encounter: 2011-10-06 13:20:00.000 Type: FM Visit Reason For Visit This 31 year patient presents for {{{[ ]}}}[ preventive health visit ][ diabetes visit ]. {{{Dolly Pusher used this visit; [ Hmong ][ Kyrgyz ][ American ][ Oromo ][ Kinyarwanda ][ Other: ]}}} {{{Name of cardiopulmonary technologist [ ]. Dolly Pusher's Phone number: [ [phone] ][ [phone] ][ [phone] ][ [phone] ]-[ ]-[ ] }}} {{{Minor without Guardian. Verbal consent obtained from [ Mother ] [ Father ] [ ] by front sight attacher staff [ ]. Contact number: [ [phone] ] [ [phone] ] [ [phone] ][ [phone] ] [ ] }}} {{{PHQ2 completed and [...] OB BIOPHYS PROFILE W/O NST Principal Result Dolly Pusher: OSWALDO ARRIAGA PROFESSOR&& Biophysical profile. 09/30/11. Comparisons: [...] and agree with the findings. Performed at: [facility]. Plan {{{Patient participated in and [ agrees ][ disagrees ] with today's plan.}}} {{{Patient's family participated in and [ agree ][ disagree ] with today's plan.}}} {{{Patient and family participated in and [ agree ][ disagree ] with today's plan.}}}. Signature Signed By: Andreas Patel M.D.,Resident; 10/10/2011 11:03 AM NURSE COLLEGE. documented in this encounter Plan of Treatment Not on file documented as of this encounter Visit Diagnoses Not on filedocumented in this encounter Care Teams Ware Dresser Relationship Specialty Start Date End Date Andreas Patel MD PCP - General 10/05/11 10/07/11 Caitlin Ballesteros MD PCP - General 10/08/11 08/11/13 Lisa Dewitt DO [facility] [address] [place] [address] PCP - General 08/12/13 07/15/14 [facility] [address] [place] [address] PCP - General 07/16/14 03/11/15 Keri Elias MD 2019 [place] [address] PCP - General Family Practice 03/12/15 11/13/18 Francisco Metz MD [address] [place] [address] PCP - General Family Practice 11/14/18 04/02/20 Karen Veliz DO [address] [place] [address] PCP - General Family Medicine 04/03/20 Bebeto Roth MD [facility] [address] Orthopedics 07/09/14 Astrid Rios PA-C [address] [place] [address] Physician Product Manager E Commerce Physician Product Manager E Commerce - Surgical 07/09/14 Francisco Metz MD [facility] [address] [place] [address] Delores LUCIO [address] Assigned PCP 07/04/19 02/01/20 Kenton Katz MD NO INFO AVAILABLE Assigned PCP 02/02/20 08/27/20 Kenton Katz MD NO INFO AVAILABLE Assigned Endocrinology Provider 08/28/20 07/23/21 Karen Veliz DO [address] [place] [address] Assigned PCP 08/28/20 01/14/22 documented as of this encounter
--- OUTSIDE RECORDS SUMMARY | 2023-11-17 01:16 | XMS_ITS | Encounter Summary ---
Author Organization [place] Address [address] [facility] [place] [address] Care Team Providers Care Fishing Gear Mechanic Name Role Phone Bebeto Roth MD Unavailable [phone] Astrid Rios PA-C Unavailable [phone] Keri Elias MD Primary Care Provider Unavailable Francisco Metz MD Primary Care Provider Francisco Metz MD Unavailable [phone] Kenton Katz MD Unavailable Henrietta Karen Preston DO Primary Care Provider [phone] Kenton Katz MD Unavailable Henrietta Karen Preston DO Unavailable [phone] Encounter Details Date Type Department Care Team (Late st Contact Info) Description 01/18/2018 MyC Medical Advice [facility] [address] [place] [address], [address] [place], [place] [id number] Keri Elias MD XXX RETIRED XXX 03/10/2022 [...] choice. Routing to PCP. Alanna Sanders RN MANAGER documented in this encounter Plan of Treatment Not on file documented as of this encounter Visit Diagnoses Not on filedocumented in this encounter Care Teams Fishing Gear Mechanic Relationship Specialty Start Date End Date Keri Elias MD [facility] [address] [address] PCP - General Family Practice 03/12/15 11/13/18 Francisco Metz MD [facility] [address] [address] PCP - General Family Practice 11/14/18 04/02/20 Karen Veliz DO [address] [place] [address] PCP - General Family Medicine 04/03/20 Bebeto Roth MD [facility] [address] [address] Orthopedics 07/09/14 Astrid Rios PA-C [facility] [address] [address] Physician Formulation Technician Physician Formulation Technician - Surgical 07/09/14 Francisco Metz MD [place] [address] ANGELLA LUCIO [address] Assigned PCP 07/04/19 02/01/20 Kenton Katz MD NO INFO AVAILABLE Assigned PCP 02/02/20 08/27/20 Kenton Katz MD NO INFO AVAILABLE Assigned Endocrinology Provider 08/28/20 07/23/21 Karen Veliz DO 2019 [place] [address] Assigned PCP 08/28/20 01/14/22 documented as of this encounter
--- OUTSIDE RECORDS SUMMARY | 2023-11-17 01:16 | XMS_ITS | Encounter Summary ---
Author Organization [place] Address [address] [facility] [place] [address] Care Team Providers Care Naval Aircrewman Tactical Helicopter Name Role Phone Bebeto Roth MD Unavailable [phone] Astrid Rios PA-C Unavailable [phone] Francisco Metz MD Primary Care Provider Francisco Metz MD Unavailable [phone] Kenton Katz MD Unavailable Henrietta Karen Preston DO Primary Care Provider [phone] Kenton Katz MD Unavailable Henrietta Karen Preston DO Unavailable [phone] Reason for Visit * Reason Onset Date Comments Referral 12/25/2019 Encounter Details Date Type Department Care Team (Late st Contact Info) Description 12/25/[address] [place] [address] Francisco Metz MD [place] [address] [place] [address] Referral Social History Tobacco Use Types Packs/Day [...] referral. Would like it dated for 10/14/19 H LATHE OPERATOR * Telephone Encounter - Cherry Viera - 12/26/2019 12:49 PM CST Will forward to PCP to address. Please advise. Cherry Reyes Manager Educational H LATHE OPERATOR * Telephone Encounter - Rachel, May - 12/25/2019 3:35 PM CST [facility] Family Medicine phone call message - order or referral request from patient: Order or referral being requested: Referral to Physical Therapy At Location: [facility] Additional Details: KENNY Weems states this patient needs a referral for outpatient physical therapy at their location from her primary doctor here. She hasn't had any OB care here and she states that this is the only location she can see her receiving care. Faustina states the patient has attended 10/13and 10/27. Patient no showed 11/10 Referral only -Specialty Physical Therapy Location [address] [address] [place] to leave a message on voice mail? Yes Primary language: [place] Crime Victim Specialist needed? No Call taken on December 25, 2019 at 3:35 PM by May Rachel Order request route to P SMI TRIAGE Referrals Route to P SMI (Green/Crow/Purple) BULK SYSTEM OPERATOR H LATHE OPERATOR documented in this encounter Plan of Treatment Not on file documented as of this encounter Visit Diagnoses Not on filedocumented in this encounter Care Teams Naval Aircrewman Tactical Helicopter Relationship Specialty Start Date End Date Francisco Metz MD [address] [place] [address] PCP - General Family Practice 11/14/18 04/02/20 Karen Veliz DO [address] [place] [address] PCP - General Family Medicine 04/03/20 Bebeto Roth MD [facility] [address] [address] Orthopedics 07/09/14 Astrid Rios PA-C [address] [address] Physician Label Coder Physician Label Coder - Surgical 07/09/14 Francisco Metz MD [place] [address] [place] [address] Assigned PCP 07/04/19 02/01/20 Kenton Katz MD NO INFO AVAILABLE Assigned PCP 02/02/20 08/27/20 Kenton Kazt MD NO INFO AVAILABLE Assigned Endocrinology Provider 08/28/20 07/23/21 Karen Veliz DO [address] [place] [address] Assigned PCP 08/28/20 01/14/22 documented as of this encounter
--- OUTSIDE RECORDS SUMMARY | 2023-11-17 01:16 | XMS_ITS | Encounter Summary ---
Author Organization [place] Address [address] [place] [address]. [place] [address] Care Team Providers Care Swaging Machine Operator Name Role Phone Andreas Patel MD Primary Care Provider [phone] Caitlin Ballesteros MD Primary Care Provider [phone] Lisa Dewitt DO Primary Care Provider [phone] Bebeto Roth MD Unavailable [phone] Astrid Rios PA-C Unavailable [phone] [place] [address] - [facility] Primary Car e Provider Keri Elias MD Primary Care Provider Unavailable Francisco Metz MD Primary Care Provider Francisco Metz MD Unavailable [phone] Kenton Katz MD Unavailable Henrietta Karen Preston DO Primary Care Provider [phone] Kenton Katz MD Unavailable Henrietta Karen Preston DO Unavailable [phone] Encounter Details Date Type Department Care Team (Late st Contact Info) Description 09/30/2011 [facility] Only [facility] [address] [place] [address] Angela Holguin Social History Tobacco [...] on filedocumented in this encounter Care Teams Swaging Machine Operator Relationship Specialty Start Date End Date Andreas Patel MD PCP - General 10/05/11 10/07/11 Caitlin Ballesteros MD PCP - General 10/08/11 08/11/13 Lisa Dewitt DO [facility] [address] [place] [address] PCP - General 08/12/13 07/15/14 [facility] [address] [place] [address] PCP - General 07/16/14 03/11/15 Keri Elias MD [address] [place] [address] PCP - General Family Practice 03/12/15 11/13/18 Francisco Metz MD [address] [place] [address] PCP - General Family Practice 11/14/18 04/02/20 Karen Veliz DO [address] [place] [address] PCP - General Family Medicine 04/03/20 Bebeto Roth MD [facility] [address] [address] Orthopedics 07/09/14 Astrid Rios PA-C [address] [place] [address] Physician Teacher Drama Physician Teacher Drama - Surgical 07/09/14 Francisco Metz MD [facility] [address] [place] [address] [place] [address] Assigned PCP 07/04/19 02/01/20 Kenton Katz MD NO INFO AVAILABLE Assigned PCP 02/02/20 08/27/20 Kenton Katz MD NO INFO AVAILABLE Assigned Endocrinology Provider 08/28/20 07/23/21 Karen Veliz DO [address] [place] [address] Assigned PCP 08/28/20 01/14/22 documented as of this encounter
--- OUTSIDE RECORDS SUMMARY | 2023-11-17 01:16 | XMS_ITS | Encounter Summary ---
Author Organization [place] Address [address] [facility] [place] [address] Care Team Providers Care Costume Rental Clerk Name Role Phone Bebeto Roth MD Unavailable [phone] Astrid Rios PA-C Unavailable [phone] Keri Elias MD Primary Care Provider Unavailable Francisco Metz MD Primary Care Provider Francisco Metz MD Unavailable [phone] Kenton Katz MD Unavailable Henrietta Karen Preston DO Primary Care Provider [phone] Kenton Katz MD Unavailable Henrietta Karen Preston DO Unavailable [phone] Reason for Visit * Reason Onset Date Comments No Show 03/27/2017 RTN No Show #3 Encounter Details Date Type Department Care Team (Late st Contact Info) Description 03/27/2017 Telephone [facility] [address] [place] [address], [address] [place] [address] Keri Elias MD XXX RETIRED [...] the virtual schedule to meet with you. IAC RN documented in this encounter Plan of Treatment Not on file documented as of this encounter Visit Diagnoses Not on filedocumented in this encounter Care Teams Costume Rental Clerk Relationship Specialty Start Date End Date Keri Elias MD [facility] [address] [address] PCP - General Family Practice 03/12/15 11/13/18 Francisco Metz MD [address] [place] [address] PCP - General Family Practice 11/14/18 04/02/20 Karen Veliz DO [address] [place] [address] PCP - General Family Medicine 04/03/20 Bebeto Roth MD [address] [place] [address] Orthopedics 07/09/14 Astrid Rios PA-C [address] [place] [address] Physician Security Assessor Physician Security Assessor - Surgical 07/09/14 Francisco Metz MD [place] [address] [place] [address] Assigned PCP 07/04/19 02/01/20 Kenton Katz MD NO INFO AVAILABLE Assigned PCP 02/02/20 08/27/20 Kenton Katz MD NO INFO AVAILABLE Assigned Endocrinology Provider 08/28/20 07/23/21 Karen Veliz DO [address] [place] [address] Assigned PCP 08/28/20 01/14/22 documented as of this encounter
--- OUTSIDE RECORDS SUMMARY | 2023-11-17 01:16 | XMS_ITS | Clinical Summary ---
Author Organization [place] Address [address] [facility] [place] [address] Care Team Providers Care Etiology Teacher Name Role Phone Bebeto Roth MD Unavailable [phone] Astrid Rios PA-C Unavailable [phone] Karen Veliz DO Primary Care Provider [phone] Allergies Active Allergy Reactions Criticality Noted Date Comments Seasonal Allergies 10/04/2011 Medications Medication Sig Dispensed Refills Start Date End Date Status fluticasone (FLONASE) 50 MCG/ACT sprayIndications:Envi ronmental allergies [place] 1-2 sprays into both nostrils daily 16 [...] migh t be different from the original. [email or web address] Problem Noted Date Diagnosed Date S/P spinal [...] OB PROVIDERS 1.Keri Elias 2. Eva Hogan ([phone]) CARE PLAN ?? Consults: ?? Ultrasounds: 08/03/16 (dating), 10/19/16 (anatomy survey) DELIVERY PLAN ?? Planned mode of delivery: ?? Delivery timing: ?? Notifications during labor: Page OB providers above ?? Post Contraception: GBS: Depo-Provera contraceptive status 04/03/2012 04/04/2013 Health Retirement 12/19/2011 07/31/2023 Overview: Tier 0 DX V65.8 REPLACED WITH 68926 HEALTH LONG-TERM (05/21/2012) Acne vulgaris 12/19/2011 04/12/2017 in multigravida [...] Comments Blood Pressure 94/56 02/18/2019 7:21 PM SUBSORTER Pulse 56 02/18/2019 7:21 PM SUBSORTER Temperature 36.9 ??C (98.4 ??F) 02/18/2019 3:50 PM CS T Respiratory Rate 16 02/18/2019 7:21 PM SUBSORTER Oxygen Saturation 94% 02/18/2019 7:21 PM SUBSORTER Inhaled Oxygen Concentration - - Weight 73.5 kg (162 lb) 02/18/2019 3:50 PM SUBSORTER Height 160 cm (5' 3) 04/18/2018 8:42 AM SUBSORTER Body Mass Index 28.7 04/18/2018 8:42 AM SUBSORTER Plan of Treatment Not on file Medical Devices Implanted Type Area Line Servicer Device Identifier Shelf Expiration Date Model / Serial / Lot Graft Bone Crush Canc 30ml [id number] Implanted:Qty : 1 on 10/23/2017 by Bebeto Roth MD at [facility] Bone/Tissu e/Biologic N/A: Spine Thoracic MUSCULOSKELETAL HANSEN 08/28/2020 [id number] / [id number] / Graft Bone Crush Canc 30ml [id number] Implanted:Qty : 1 on 10/23/2017 by Bebeto Roth MD at [facility] Bone/Tissu e/Biologic N/A: Spine Thoracic MUSCULOSKELETAL HANSEN 08/07/2020 [id number] / [id number] / Imp Scr Medt 5.5/6.0mm Solera 5.5x40mm Ma [id number] Implanted:Qty : 9 on 10/23/2017 by Bebeto Roth MD at [facility] Metallic Hardware/A nchor N/A: Spine Thoracic [employer] [id number] / / [id number] Imp Scr Medt 5.5/6.0mm Solera 5.5x35mm Ma [id number] Implanted:Qty : 4 on 10/23/2017 by Bebeto Roth MD at [facility] Metallic Hardware/A nchor N/A: Spine Thoracic [employer] [id number] / / Imp Scr Set Medt Solera Break Off 5.5mm Ti [id number] Implanted:Qty : 13 on 10/23/2017 by Bebeto Roth MD at [facility] Metallic Hardware/A nchor N/A: Spine Thoracic [employer] [id number] / / [id number] Imp Abhijeet Medt Solera Lined 5.1o752xl Chr [id number] Implanted:Qty : 1 on 10/23/2017 by Bebeto Roth MD at [facility] Metallic Hardware/A nchor N/A: Spine Thoracic [employer] [id number] / / [id number] Imp Scr Set Kenova Medt 5.5 To 5.5mm [id number] Implanted:Qty : 2 on 10/23/2017 by Bebeto Roth MD at [facility] Metallic Hardware/A nchor N/A: Spine Thoracic [employer] [id number] / / Imp Scr Danek Legacy Breakoff Set 5.5mm Ti [id number] Implanted:Qty : 5 on 10/23/2017 by Bebeto Roth MD at [facility] Metallic Hardware/A nchor N/A: Spine Thoracic [employer]-DANEK [id number] / / Axial Kenova Implanted:Qty : 2 on 10/23/2017 by Bebeto Roth MD at [facility] N/A: Spine Thoracic [employer]-DANEK [id number] / / Explanted Type Area Line Servicer Device Identifier Shelf Expiration Date Model / Serial / Lot 5 Set Screws Explanted:Qty: 1 on 10/23/2017 at [facility] N/A: Spine Thoracic Advance Directives For more information, please contact: [phone] * Full Code (Latest Code Status on File) Date Activated Date Inactivated Comments 10/25/2017 10:23 AM 10/27/2017 8:35 AM * Full Code Date Activated Date Inactivated Comments 10/23/2017 2:18 PM 10/25/2017 10:23 AM * Full Code Date Activated Date Inactivated Comments 03/05/2017 11:49 AM 10/23/2017 2:18 PM Care Teams Etiology Teacher Relationship Specialty Start Date End Date Karen Veliz DO 2019 [place] [address] PCP - General Family Medicine 04/03/20 Bebeto Roth MD [address] [place] [address] Orthopedics 07/09/14 Astrid Rios PA-C [address] [address] Physician Revenue Collector Physician Revenue Collector - Surgical 07/09/14
--- OUTSIDE RECORDS SUMMARY | 2023-11-17 01:16 | XMS_ITS | Encounter Summary ---
Author Organization [place] Address [address] [facility] [place] [address] Care Team Providers Care Tube Closing Machine Operator Name Role Phone Bebeto Roth MD Unavailable [phone] Astrid Rios PA-C Unavailable [phone] Keri Elias MD Primary Care Provider Unavailable Francisco Metz MD Primary Care Provider Francisco Metz MD Unavailable [phone] Kenton Katz MD Unavailable Henrietta Karen Preston DO Primary Care Provider [phone] Kenton Katz MD Unavailable Henrietta Karen Preston DO Unavailable [phone] Reason for Visit * Reason Onset Date Comments Outreach 03/13/2017 Rtn no show #2 Encounter Details Date Type Department Care Team (Late st Contact Info) Description 03/13/2017 Telephone [facility] [address]. [address] [place] [address], [address] [place] [address] Keri Elias MD XXX RETIRED [...] some of your recently scheduled appointments. At [facility] we have a new no show policy, where if you miss too many appointments within 1 year, we may not be able to continue to schedule you. If you are unable to make your scheduled appointments, please call the clinic to cancel prior to your appointment time. BUILDER SUPERVISOR documented in this encounter Plan of Treatment Not on file documented as of this encounter Visit Diagnoses Not on filedocumented in this encounter Care Teams Tube Closing Machine Operator Relationship Specialty Start Date End Date Keri Elias MD [address] [place] [address] PCP - General Family Practice 03/12/15 11/13/18 Francisco Metz MD [address] [place] [address] PCP - General Family Practice 11/14/18 04/02/20 Karen Veliz DO [address] [place] [address] PCP - General Family Medicine 04/03/20 Bebeto Roth MD [address] [place] [address] Orthopedics 07/09/14 Astrid Rios PA-C [address] [place] [address] Physician Sales Account Associate Physician Sales Account Associate - Surgical 07/09/14 Francisco Metz MD [place] [address] [place] [address] Assigned PCP 07/04/19 02/01/20 Kenton Katz MD NO INFO AVAILABLE Assigned PCP 02/02/20 08/27/20 Kenton Katz MD NO INFO AVAILABLE Assigned Endocrinology Provider 08/28/20 07/23/21 Karen Veliz DO 2019 [place] [address] Assigned PCP 08/28/20 01/14/22 documented as of this encounter
--- OUTSIDE RECORDS SUMMARY | 2023-11-17 01:16 | XMS_ITS | Clinical Summary ---
Author Organization [employer] Address [address] [place] [address] Care Team Providers Care Linter Operator Name Role Phone Zion Sorto MD Primary Care Provider [phone] Source Comments You are receiving this document as you are listed as the primary care provider,follow-up provider, or the patient has been referred to you for consultation.This is in compliance with the Medicare and[facility] Rehabilitationcaid EHR Incentive Program,which states Providers who transition their patient to another setting of careor provider of care or refers their patient to another provider of care shouldprovide summary care record for each transition of care or referral. [employer] Allergies Active Allergy Reactions Criticality Noted Date Comments Other Other, see comments 10/04/2011 Medications Medication Sig Dispensed Refills Start Date End Date Status pseudoephedrine ([id number]) 120 MG 12 hour release tablet Take [...] - Tdap) 10/04/2021 10/05/19, 1982 COVID-19 Vaccine (2023-2 5 season) 2023 Influenza (#1) 2023 12/16/2010, 12/06/2009 Zoster/Shingles (1 [...] age to complete this topic Care Teams Linter Operator Relationship Specialty [place] [address] [place] [address] PCP - General 10/15/15
--- OUTSIDE RECORDS SUMMARY | 2023-11-17 01:17 | XMS_ITS | Encounter Summary ---
Author Organization [place] Address [address] [facility] [place] [address] Care Team Providers Care Strand Forming Machine Operator Name Role Phone Andreas Patel MD Primary Care Provider [phone] Caitlin Ballesteros MD Primary Care Provider [phone] Lisa Dewitt DO Primary Care Provider [phone] Bebeto Roth MD Unavailable [phone] Astrid Rios PA-C Unavailable [phone] [facility] Primary Car e Provider Krei Elias MD Primary Care Provider Unavailable Francisco Metz MD Primary Care Provider Francisco Metz MD Unavailable [phone] Kenton Katz MD Unavailable Henrietta Karen Preston DO Primary Care Provider [phone] Kneton Katz MD Unavailable Henrietta Karen Preston DO Unavailable [phone] Encounter Details Date Type Department Care Team (Late st Contact Info) Description 09/08/2011 Office Visit-[facility] INTERFACE P DEPT Andreas Patel MD [address] [place] [address] Social History Tobacco Use Types Packs/Day Years Used Date Smoking Tobacco: Never Assessed Sex and Gender Information Value Date Recorded Sex Assigned at Not on file Gender Identity Not on file Sexual Orientation Not on file documented as of this encounter Progress Notes * Amanda Andreas - 09/08/2011 3:00 PM CDT Cnp: AmandaJason [email or web address] Status: Amended, Unsigned Encounter: 2011-09-08 15:00:00.000 Type: FM Ultrasound WORK AUTO TRIMMER documented in this encounter Plan of Treatment Not on file documented as of this encounter Visit Diagnoses Not on filedocumented in this encounter Care Teams Strand Forming Machine Operator Relationship Specialty Start Date End Date Andreas Patel MD PCP - General 10/05/11 10/07/11 Caitlin Ballesteros MD PCP - General 10/08/11 08/11/13 Lisa Dewitt DO [facility] [address], [place] [address] PCP - General 08/12/13 07/15/14 [facility] [address] [place] [address] PCP - General 07/16/14 03/11/15 Keri Elias MD [address] [place] [address] PCP - General Family Practice 03/12/15 11/13/18 Francisco Metz MD [address] [place] [address] PCP - General Family Practice 11/14/18 04/02/20 Karen Veliz DO [address] [place] [address] PCP - General Family Medicine 04/03/20 Bebeto Roth MD [address] [place] [address] Orthopedics 07/09/14 Astrid Rios PA-C [address] [place] [address] Physician Bottling Machine Operator Physician Bottling Machine Operator - Surgical 07/09/14 Francisco Metz MD [place] [address] [place] [address] Assigned PCP 07/04/19 02/01/20 Kenton Katz MD NO INFO AVAILABLE Assigned PCP 02/02/20 08/27/20 Kenton Katz MD NO INFO AVAILABLE Assigned Endocrinology Provider 08/28/20 07/23/21 Karen Veliz DO [address] [place] [address] Assigned PCP 08/28/20 01/14/22 documented as of this encounter
--- OUTSIDE RECORDS SUMMARY | 2023-11-17 01:17 | XMS_ITS | Encounter Summary ---
Author Organization [place] Address [address] [facility] [place] [address] Care Team Providers Care Filter Filler Name Role Phone Andreas Patel MD Primary Care Provider [phone] Caitlin Ballesteros MD Primary Care Provider [phone] Lisa Dewitt DO Primary Care Provider [phone] Bebeto Roth MD Unavailable [phone] Astrid Rios PA-C Unavailable [phone] [facility] Primary [facility] e Provider Keri Elias MD Primary Care Provider Unavailable Francisco Metz MD Primary Care Provider Francisco Metz MD Unavailable [phone] Kenton Katz MD Unavailable Henrietta Karen Preston DO Primary Care Provider [phone] Kenton Katz MD Unavailable Henrietta Karen Preston DO Unavailable [phone] Encounter Details Date Type Department Care Team (Late st Contact Info) Description 09/08/2011 Office Visit-P INTERFACE P DEPT August Ontiveros MD [address] [facility] [address] [place] [address] Social History Tobacco Use Types Packs/Day Years Used Date Smoking Tobacco: Never Assessed Sex and Gender Information Value Date Recorded Sex Assigned at Not on file Gender Identity Not on file Sexual Orientation Not on file documented as of this encounter Progress Notes * August Ontivreos MD - 09/08/2011 3:00 PM CDT Cyber Policy And Strategy Planner: WestonGabinoAugust Status: Final Encounter: 2011-09-08 15:00:00.000 Type: FM Ultrasound Active Problems Acne Vulgaris (706.1) Anxiety (300.00) Care Coordinated By; Tier 0 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 US 2nd & 3rd Trimester Ultrasound Report Primary MD: Lesli/Amanda Shoe Clerk: August Ontiveros Indications: size less than dates follow up Machine: Gera-IT 5 Pro FHR: 150s Fluid:Normal TJ: 14.5 [...] By: August Ontiveros M.D.; 09/09/2011 3:11 PM FOOD SERVICE TRAY ATTENDANT; Author. SERVICE TRAY ATTENDANT documented in this encounter Plan of Treatment Not on file documented as of this encounter Visit Diagnoses Not on filedocumented in this encounter Care Teams Filter Filler Relationship Specialty Start Date End Date Andreas Patel MD PCP - General 10/05/11 10/07/11 Caitlin Ballesteros MD PCP - General 10/08/11 08/11/13 Lisa Dewitt DO [facility] [address] [place] [address] PCP - General 08/12/13 07/15/14 [facility] [address] [place] [address] PCP - General 07/16/14 03/11/15 Keri Elias MD [address] [place] [address] PCP - General Family Practice 03/12/15 11/13/18 Francisco Metz MD [address] [place] [address] PCP - General Family Practice 11/14/18 04/02/20 Karen Veliz DO [address] [place] [address] PCP - General Family Medicine 04/03/20 Bebeto Roth MD [address] [place] [address] Orthopedics 07/09/14 Astrid Rios PA-C [address] [place] [address] Physician Mainframe Consultant Physician Mainframe Consultant - Surgical 07/09/14 Francisco Metz MD [place] [address] [address] [place] [address] Assigned PCP 07/04/19 02/01/20 Kenton Katz MD NO INFO AVAILABLE Assigned PCP 02/02/20 08/27/20 Kenton Katz MD NO INFO AVAILABLE Assigned Endocrinology Provider 08/28/20 07/23/21 Karen Veliz DO 2019 [place] [address] Assigned PCP 08/28/20 01/14/22 documented as of this encounter
--- OUTSIDE RECORDS SUMMARY | 2023-11-17 01:17 | XMS_ITS | Encounter Summary ---
Author Organization [place] Address [address] [place] [address] Care Team Providers Care Finished Goods Stock Clerk Name Role Phone Andreas Patel MD Primary Care Provider [phone] Caitlin Ballesteros MD Primary Care Provider [phone] Lisa Dewitt DO Primary Care Provider [phone] Bebeto Roth MD Unavailable [phone] Astrid Rios PA-C Unavailable [phone] [facility] Primary Car e Provider Keri Elias MD Primary Care Provider Unavailable Francisco Metz MD Primary Care Provider Francisco Metz MD Unavailable [phone] Kenton Katz MD Unavailable Henrietta Karen Preston DO Primary Care Provider + [phone] Kenton Katz MD Unavailable Henrietta Karen Preston DO Unavailable [phone] Encounter Details Date Type Department Care Team (Late st Contact Info) Description 07/14/2011 Office Visit-[facility] INTERFACE UMP DEPT Social History Tobacco Use Types Packs/Day Years Used Date Smoking Tobacco: Never Assessed Sex and Gender Information Value Date Recorded Sex Assigned at Not on file Gender Identity Not on file Sexual Orientation Not on file documented as of this encounter Progress Notes * SY UMP ULTRASOUND - 07/14/2011 9:10 AM CDT Lsw: PATRICIO, ULTRASOUND Status: Amended, Final Encounter: 2011-07-14 09:10:00.000 Type: FM Ultrasound Active Problems Acne Vulgaris (706.1) Anxiety (300.00) Care Coordinated By; Tier 0 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 US 2nd & 3rd Trimester Ultrasound Report Primary MD: Dr Navarro Unemployment Insurance Director: Latesha Harley Indications: size less than dates P: 2 Machine: [employer] 5 Pro FHR: 143 bpm Fluid:Normal TJ: [...] By: August Ontiveros ; 07/19/2011 9:17 AM RISK CONTROL SPECIALIST. Signature Signed By: Latesha Harley ; 07/14/2011 9:45 AM RISK CONTROL SPECIALIST. Signed By: August Ontiveros M.D.; 07/19/2011 9:17 AM RISK CONTROL SPECIALIST; Author. CONTROL SPECIALIST documented in this encounter Plan of Treatment Not on file documented as of this encounter Visit Diagnoses Not on filedocumented in this encounter Care Teams Finished Goods Stock Clerk Relationship Specialty Start Date End Date Andreas Patel MD PCP - General 10/05/11 10/07/11 Caitlin Ballesteros MD PCP - General 10/08/11 08/11/13 Lisa Dewitt DO [facility] [address] [place] [address] PCP - General 08/12/13 07/15/14 [facility] [address] [place] [address] PCP - General 07/16/14 03/11/15 Keri Elias MD [address] [place] [address] PCP - General Family Practice 03/12/15 11/13/18 Francisco Metz MD [address] [place] [address] PCP - General Family Practice 11/14/18 04/02/20 Karen Veliz DO [address] [place] [address] PCP - General Family Medicine 04/03/20 Bebeto Roth MD [address] [address] Orthopedics 07/09/14 Astrid Rios PA-C [address] [address] Physician Rn Oncology Research Physician Rn Oncology Research - Surgical 07/09/14 Francisco Metz MD [place] [address] ANGELLA LUCIO [address] Assigned PCP 07/04/19 02/01/20 Kenton Katz MD NO INFO AVAILABLE Assigned PCP 02/02/20 08/27/20 Kenton Katz MD NO INFO AVAILABLE Assigned Endocrinology Provider 08/28/20 07/23/21 Karen Veliz DO [address] [place] [address] Assigned PCP 08/28/20 01/14/22 documented as of this encounter
--- OUTSIDE RECORDS SUMMARY | 2023-11-17 01:17 | XMS_ITS | Encounter Summary ---
Author Organization [place] Address [address] [facility] [place] [address] Care Team Providers Care Stratigraphy Teacher Name Role Phone Andreas Patel MD Primary Care Provider [phone] Caitlin Ballesteros MD Primary Care Provider [phone] Lisa Dewitt DO Primary Care Provider [phone] Bebeto Roth MD Unavailable [phone] Astrid Rios PA-C Unavailable [phone] [place] [address] Primary Car e Provider Keri Elias MD Primary Care Provider Unavailable Francisco Metz MD Primary Care Provider Francisco Metz MD Unavailable [phone] Kenton Katz MD Unavailable Henrietta Karen Preston DO Primary Care Provider + [phone] Kenton Katz MD Unavailable Henrietta Karen Preston DO Unavailable [phone] Encounter Details Date Type Department Care Team (Late st Contact Info) Description 09/22/2011 Office Visit-[facility] INTERFACE P DEPT Aditi Boyer MD [facility] [address] [place] [address] Social History Tobacco Use Types [...] Boyer MD - 09/22/2011 2:00 PM CDT Lunchroom Monitor: Merlin Aditi Status: Final Encounter: 2011-09-22 14:00:00.000 Type: [facility] Hospital Note Allergies No Known Drug [...] By: Aditi Boyer M.D.; 09/26/2011 2:06 PM LENS INSERTER. documented in this encounter Plan of Treatment Not on file documented as of this encounter Visit Diagnoses Not on filedocumented in this encounter Care Teams Stratigraphy Teacher Relationship Specialty Start Date End Date Andreas Patel MD PCP - General 10/05/11 10/07/11 Caitlin Ballesteros MD PCP - General 10/08/11 08/11/13 Lisa Dewitt DO [facility] [address] [place] [address] PCP - General 08/12/13 07/15/14 [facility] [address] [place] [address] PCP - General 07/16/14 03/11/15 Keri Elias MD [address] [place] [address] PCP - General Family Practice 03/12/15 11/13/18 Francisco Metz MD [address] [place] [address] PCP - General Family Practice 11/14/18 04/02/20 Karen Velzi DO [address] [place] [address] PCP - General Family Medicine 04/03/20 Bebeto Roth MD [address] [place] [address] Orthopedics 07/09/14 Astrid Rios PA-C [address] [place] [address] Physician Electric Range Preparer Physician Electric Range Preparer - Surgical 07/09/14 Francisco Metz MD [place] [id number] [place] [address] ANGELLA LUCIO [address] Assigned PCP 07/04/19 02/01/20 Kenton Katz MD NO INFO AVAILABLE Assigned PCP 02/02/20 08/27/20 Kenton Katz MD NO INFO AVAILABLE Assigned Endocrinology Provider 08/28/20 07/23/21 Karen Veliz DO [address] [place] [address] Assigned PCP 08/28/20 01/14/22 documented as of this encounter
--- OUTSIDE RECORDS SUMMARY | 2023-11-17 01:17 | XMS_ITS | Encounter Summary ---
Author Organization [place] Address [address] [facility] [place] [address] Care Team Providers Care Transfer Station Operator Name Role Phone Andreas Patel MD Primary Care Provider [phone] Caitlin Ballesteros MD Primary Care Provider [phone] Lisa Dewitt DO Primary Care Provider [phone] Bebeto Roth MD Unavailable [phone] Astrid Rios PA-C Unavailable [phone] [place] [address] - [facility] Primary Car e Provider Keri Elias MD Primary Care Provider Unavailable Francisco Metz MD Primary Care Provider Francisco Metz MD Unavailable [phone] Kenton Katz MD Unavailable Henrietta Karen Preston DO Primary Care Provider + [phone] Kenton Katz MD Unavailable Henrietta Karen Preston DO Unavailable [phone] Encounter Details Date Type Department Care Team (Late st Contact Info) Description 06/23/2011 Office Visit-[facility] INTERFACE UMP DEPT Social History Tobacco Use Types Packs/Day Years Used Date Smoking Tobacco: Never Assessed Sex and Gender Information Value Date Recorded Sex Assigned at Not on file Gender Identity Not on file Sexual Orientation Not on file documented as of this encounter Progress Notes * SY UMP ULTRASOUND - 06/23/2011 9:10 AM CDT Wet Machine Tender: PATRICIO, ULTRASOUND Status: Amended, Final Encounter: 2011-06-23 09:10:00.000 Type: FM Ultrasound Active Problems Acne Vulgaris (706.1) Anxiety (300.00) Care Coordinated By; Tier 0 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 US 2nd & 3rd Trimester Ultrasound Report Primary MD: Dr Navarro Inspectors And Regulatory Officers: Latesha Harley Indications: survey P: 2 Machine: [employer] 5 Pro FHR: 138 bpm Fluid:Normal Placenta [...] By: August Ontiveros ; 06/27/2011 3:10 PM BARGE PILOT. Signature Signed By: Latesha Harley ; 06/23/2011 9:48 AM BARGE PILOT. Signed By: August Ontiveros M.D.; 06/27/2011 3:11 PM BARGE PILOT; Author. E PILOT documented in this encounter Plan of Treatment Not on file documented as of this encounter Visit Diagnoses Not on filedocumented in this encounter Care Teams Transfer Station Operator Relationship Specialty Start Date End Date Andreas Patel MD PCP - General 10/05/11 10/07/11 Caitlin Ballesteros MD PCP - General 10/08/11 08/11/13 Lisa Dewitt DO [facility] [address] [place] [address] PCP - General 08/12/13 07/15/14 [facility] [address] [place] [address] PCP - General 07/16/14 03/11/15 Keri Elias MD [address] [place] [address] PCP - General Family Practice 03/12/15 11/13/18 Francisco Metz MD [address] [place] [address] PCP - General Family Practice 11/14/18 04/02/20 Karen Veliz DO [address] [place] [address] PCP - General Family Medicine 04/03/20 Bebeto Roth MD [address] [address] Orthopedics 07/09/14 Astrid Rios PA-C [address] [place] [address] Physician Back Panel Padder Physician Back Panel Padder - Surgical 07/09/14 Francisco Metz MD [place] [address] ANGELLA LUCIO [address] Assigned PCP 07/04/19 02/01/20 Kenton Katz MD NO INFO AVAILABLE Assigned PCP 02/02/20 08/27/20 Kenton Katz MD NO INFO AVAILABLE Assigned Endocrinology Provider 08/28/20 07/23/21 Karen Veliz DO 2019 [place] [address] Assigned PCP 08/28/20 01/14/22 documented as of this encounter
--- OUTSIDE RECORDS SUMMARY | 2023-11-17 01:17 | XMS_ITS | Encounter Summary ---
Author Organization [place] Address [address] [place] [address]. [place] [address] Care Team Providers Care Flat Sorter Processor Name Role Phone Andreas Patel MD Primary Care Provider [phone] Caitlin Ballesteros MD Primary Care Provider [phone] Lisa Dewitt DO Primary Care Provider [phone] Bebeto Roth MD Unavailable [phone] Astrid Rios PA-C Unavailable [phone] [facility] Primary Car e Provider Keri Elias MD Primary Care Provider Unavailable Francisco Metz MD Primary Care Provider Francisco Metz MD Unavailable [phone] Kenton Katz MD Unavailable Henrietta Karen Preston DO Primary Care Provider [phone] Kenton Katz MD Unavailable Henrietta Karen Preston DO Unavailable [phone] Encounter Details Date Type Department Care Team (Late st Contact Info) Description 04/21/2011 [facility] Only [facility] Imaging [address] [place] [address] Radha Pierce Positive test (Primary [...] result documented in this encounter Care Teams Flat Sorter Processor Relationship Specialty Start Date End Date Andreas Patel MD PCP - General 10/05/11 10/07/11 Catilin Ballesteros MD PCP - General 10/08/11 08/11/13 Lisa Dewitt DO [facility] [address] [place] [address] PCP - General 08/12/13 07/15/14 [facility] [address] [place] [address] PCP - General 07/16/14 03/11/15 Keri Elias MD [address] [place] [address] PCP - General Family Practice 03/12/15 11/13/18 Francisco Metz MD [address] [place] [address] PCP - General Family Practice 11/14/18 04/02/20 Karen Veliz DO [address] [place] [address] PCP - General Family Medicine 04/03/20 Bebeto Roth MD [address] [place] [address] Orthopedics 07/09/14 Astrid Rios PA-C [facility] [address] Physician Department Secretary Physician Department Secretary - Surgical 07/09/[address] [facility] [address] [place] [address] ANGELLA LUCIO [address] Assigned PCP 07/04/19 02/01/20 Kenton Katz MD NO INFO AVAILABLE Assigned PCP 02/02/20 08/27/20 Kenton Katz MD NO INFO AVAILABLE Assigned Endocrinology Provider 08/28/20 07/23/21 Karen Veliz DO [address] [place] [address] Assigned PCP 08/28/20 01/14/22 documented as of this encounter
--- OUTSIDE RECORDS SUMMARY | 2023-11-17 01:17 | XMS_ITS | Encounter Summary ---
Author Organization [place] Address [address] [facility] [place] [address] Care Team Providers Care Verifying Specialist Name Role Phone Andreas Patel MD Primary Care Provider [phone] Caitlin Ballesteros MD Primary Care Provider [phone] Lisa Dewitt DO Primary Care Provider [phone] Bebeto Roth MD Unavailable [phone] Astrid Rios PA-C Unavailable [phone] [place] [address] - [facility] Primary Car e Provider Keri Elias MD Primary Care Provider Unavailable Francisco Metz MD Primary Care Provider Francisco Metz MD Unavailable [phone] Kenton Katz MD Unavailable Henrietta Karen Preston DO Primary Care Provider + [phone] Kenton Katz MD Unavailable Henrietta Karen Preston DO Unavailable [phone] Encounter Details Date Type Department Care Team [...] UMP ULTRASOUND - 09/01/2011 2:00 PM CDT Blindstitch Lapel Padder: PATRICIO, ULTRASOUND Status: Amended, Final Encounter: 2011-09-01 14:00:00.000 Type: FM Ultrasound Active Problems Acne Vulgaris (706.1) Anxiety (300.00) Care Coordinated By; Tier 0 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 US 2nd & 3rd Trimester Ultrasound Report Primary MD: Dr Ballesteros Electrical Contractor: Latesha Harley Indications: Growth on prev. u/s = 5% P: 2 Machine: [employer] 5 Pro FHR: 152 bpm Fluid:Normal TJ: [...] By: August Ontiveros ; 09/07/2011 2:51 PM SIDE GLUER. Signature Signed By: Latesha Harley ; 09/01/2011 2:51 PM SIDE GLUER. Signed By: August Ontiveros M.D.; 09/07/2011 2:51 PM SIDE GLUER; Author. GLUER documented in this encounter Plan of Treatment Not on file documented as of this encounter Visit Diagnoses Not on filedocumented in this encounter Care Teams Verifying Specialist Relationship Specialty Start Date End Date Andreas Patel MD PCP - General 10/05/11 10/07/11 Caitlin Ballesteros MD PCP - General 10/08/11 08/11/13 Lisa Dewitt DO [facility] [address] [place] [address] PCP - General 08/12/13 07/15/14 [facility] [address] [place] [address] PCP - General 07/16/14 03/11/15 Keri Elias MD [address] [place] [address] PCP - General Family Practice 03/12/15 11/13/18 Francisco Metz MD [address] [place] [address] PCP - General Family Practice 11/14/18 04/02/20 Karen Veliz DO [address] [place] [address] PCP - General Family Medicine 04/03/20 Bebeto Roth MD [facility] [place] [address] Orthopedics 07/09/14 Astrid Rios PA-C [address] [place] [address] Physician Rn Clinical Review Physician Rn Clinical Review - Surgical 07/09/14 Francisco Metz MD [address] [address] Assigned PCP 07/04/19 02/01/20 Kenton Katz MD NO INFO AVAILABLE Assigned PCP 02/02/20 08/27/20 Kenton Katz MD NO INFO AVAILABLE Assigned Endocrinology Provider 08/28/20 07/23/21 Karen Veliz DO [address] [place] [address] Assigned PCP 08/28/20 01/14/22 documented as of this encounter
[2023-11-17 01:21] LABS: D Dimer Quantitative* 0.23 ug/ml (0.00-0.50)
[2023-11-17 01:52] LABS: Chloride* 108 mmol/L (96-114)
[2023-11-17 01:53] LABS: Potassium* 3.5 mmol/L (3.6-5.1); Sodium* 140 mmol/L (135-149)
[2023-11-17 01:55] LABS: Creatinine* 0.8 mg/dL (0.5-1.5); Est. Creatinine Clearance* 76.55; Estimated Glomerular Filt Rate 95 ml/min
[2023-11-17 01:56] LABS: Anion Gap 8 mEq/L (7-15); Blood Urea Nitrogen* 17 mg/dL (5-24); Calcium* 9.1 mg/dL (8.4-10.6); Carbon Dioxide* 24 mmol/L (20-32); Glucose* 106 mg/dL (60-115)
[2023-11-17 01:58] VITALS: BP 117/56; PULSE 83; RESP 16; O2SAT 100
[2023-11-17 02:09] LABS: Troponin I* < 0.01 ng/mL (0.01-0.04)
--- NOTE | 2023-11-17 02:13 | ED.CHESTPAIN ---
HPI - Chest Pain General Date Seen: 11/17/23 Chief Complaint: Chest Pain Stated Complaint: chest pain Time Seen by Provider: 11/17/23 00:12 Source: patient Mode of arrival: ambulatory Limitations: no limitations History of Present Illness HPI narrative: Patient is a 43-year-old female who comes in with concerns of chest pain. She was lying in bed talking on the phone with her mother when she felt pain in her chest. This did not radiate. There is no associated diaphoresis, dyspnea, nausea. They were discussing her oldest son who is in trouble with the law and is expected to go to nursing home. She acknowledges that this has been very stressful. Prior to coming to the ER she did take an omeprazole but did not notice any change in her chest pain. She has no history of exertional chest pain. No family history of heart attack. She is not a smoker. She is not diabetic. She has never had high blood pressure or high cholesterol. With physical activity she has never had any chest discomfort. Related Data Home Medications ?Medication ?Instructions ?Recorded ?Confirmed No Known Home Medications 11/17/23 11/17/23 Allergies Allergy/AdvReac Type Severity Reaction Status Date / Time iron Allergy Intermediate Hives Verified 07/12/23 01:26 Review of Systems Narrative Review of systems is outlined above otherwise noted to be negative. 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 Works at [employer]. No smoking, drinking alcohol, or recreational drug use. Smoking Status: Never smoker Second hand tobacco smoke exposure: No How often do you have a drink containing alcohol: never AUDIT-C Alcohol total score: 0 Non-prescribed substance use: denies use Little interest or pleasure in doing things: not at all Feeling down, depressed, or hopeless: not at all Exam Narrative Exam Narrative: Vitals noted. HEENT: Conjunctiva clear. Neck is supple without adenopathy, thyromegaly, carotid bruit. Lungs: Clear to auscultation in all lowery. No wheezes, rales, rhonchi. Heart: Regular rate and rhythm without murmur. No palpable chest wall tenderness. No costochondral tenderness. Abdomen: Soft and nontender. No guarding, rigidity, rebound. Bowel sounds are normal. No palpable masses. Extremities: No cyanosis or edema. Good distal pulses. Skin: No abnormalities noted of the exposed skin. Neurologic: Awake, alert, fully oriented. Neurologic exam is nonfocal. Const Vital Signs, click to edit/add: Vital Signs - 24 hr 11/17/23 00:10 11/17/23 01:58 Temperature 98.8 F Pulse Rate [Pulse Oximeter] 81 83 Respiratory Rate 16 16 Blood Pressure [Right Upper Arm] 116/77 117/56 L Pulse Oximetry 98 100 Oxygen Delivery Method Room Air Course Course ED Course: Patient is seen and examined. EKG shows normal sinus rhythm with a rate of 101. No ST or T-wave changes. Troponin is negative. CBC, BMP, D-dimer are all normal. Vital Signs Vital signs: Initial Vital Signs Temperature 98.8 F 11/17/23 00:10 Temperature Source Temporal Artery Scan 11/17/23 00:10 Pulse Rate 81 11/17/23 00:10 Respiratory Rate 16 11/17/23 00:10 Blood Pressure 116/77 11/17/23 00:10 Blood Pressure Mean 90 11/17/23 00:10 Blood Pressure Position Sitting 11/17/23 00:10 Pulse Oximetry 98 11/17/23 00:10 Vital Signs Temperature 98.8 F 11/17/23 00:10 Pulse Rate 81 11/17/23 00:10 Respiratory Rate 16 11/17/23 00:10 Blood Pressure 116/77 11/17/23 00:10 Pulse Oximetry 98 11/17/23 00:10 Temperature 98.8 F 11/17/23 00:10 Pulse Rate 83 11/17/23 01:58 Respiratory Rate 16 11/17/23 01:58 Blood Pressure 117/56 L 11/17/23 01:58 Pulse Oximetry 100 11/17/23 01:58 Oxygen Delivery Method Room Air 11/17/23 01:58 MDM - Chest Pain Lab Data Labs: Lab Results 11/17/23 Range/Units 00:26 WBC 6.71 (4.50-11.00) K/uL RBC 4.84 (4.00-5.20) m/uL Hgb 12.8 (12.0-16.0) gm/dL Hct 39.9 (33.0-51.0) % MCV 82 (80-100) fL MCH 26 (26-34) pg MCHC 32 (32-36) gm/dL RDW Coeff of Ned 12.5 (11.5-15.5) % Plt Count 217 (140-440) K/uL Neut % (Auto) 58.9 (42.0-72.0) % Lymph % (Auto) 29.5 (20-44) % Cataño % (Auto) 8.6 (0.0-11.0) % Eos % (Auto) 2.1 (0.0-7.0) % Baso % (Auto) 0.3 (0.0-3.0) % Neut # (Auto) 3.95 (1.7-7.0) K/uL Lymph # (Auto) 1.98 (0.90-2.90) K/uL Cataño # (Auto) 0.60 (0.00-0.90) K/UL Eos # (Auto) 0.14 (0.00-0.50) K/uL Baso # (Auto) 0.02 (0.00-0.30) K/uL Abs Immat Gran (auto) 0.04 (0.00-0.30) K/uL Imm/Tot Granulo (auto) 0.6 % D-Dimer Quant (PE/DVT) 0.23 (0.00-0.50) ug/ml Sodium 140 (135-149) mmol/L Potassium 3.5 L (3.6-5.1) mmol/L Chloride 108 (96-114) mmol/L Carbon Dioxide 24 (20-32) mmol/L Anion Gap 8 (7-15) mEq/L BUN 17 (5-24) mg/dL Creatinine 0.8 (0.5-1.5) mg/dL Estimated Creat Clear 76.55 Estimated GFR 95 ml/min Glucose 106 (60-115) mg/dL Calcium 9.1 (8.4-10.6) mg/dL Troponin I < 0.01 L (0.01-0.04) ng/mL Discharge Plan Discharge Clinical Impression: Chest pain, non-cardiac Patient Disposition: Home, Self-Care Condition: Stable Additional Instructions: Try Omeprazole for acid reflux. Try Ibuprofen for chest wall pain. Establish care with a primary care doctor and discuss anxiety. Return to the ED for exertional chest. Prescriptions: No Action No Known Home Medications Follow Up/Referrals: Provider,Not a Local [Primary Care Provider] - Stand Alone Forms: [employer] Info Instructions
== END 2023-11-17 02:19 | disposition home or self-care (01) ==
PROVIDERS: Emergency Provider Family Medicine
DX: R07.89 Other chest pain (principal)
CPT/HCPCS: 36415; 80048; 84484; 85025; 85379; 99282; 99283; 99284